=== PATIENT | male | born 2000 | race Caucasian/White ===

== ENCOUNTER 2021-04-19 10:45 | Emergency (ER) | payer SELFPAY ==
[2021-04-19] MEDS ORDERED: HYDROCODONE/APAP 10/325 TAB ONE (11:31)
--- NOTE | 2021-04-19 11:36 | RAD REPORT ---
EXAM DESCRIPTION: RAD - Ankle Right 3 View - 04/19/2021 11:26 am CLINICAL HISTORY: ankle pain COMPARISON: Extremity Venous Uni Ltd dated 04/19/2021 FINDINGS: No acute fracture. No malalignment. Mild sclerosis at the tibial plafond likely related to underlying degenerative changes. Nonspecific soft tissue swelling around the ankle. Possible ankle e ffusion. IMPRESSION: No acute osseous abnormality involving the right ankle.
--- NOTE | 2021-04-19 11:42 | RAD REPORT ---
EXAM DESCRIPTION: US - Extremity Venous Uni Ltd - 04/19/2021 11:33 am COMPARISON: None. TECHNIQUE: Real-time sonographic evaluation of the right lower extremity deep venous system was perf ormed. FINDINGS: Normal compressibility, flow augmentation, phasic flow and spontaneous flow is identified in the right lower extremity deep venous system. No intraluminal filling defects seen. IMPRESSION: No DVT in the right lower extremity.
--- NOTE | 2021-04-19 12:26 | EDPHYS ---
Physician Documentation [facility] Name: Sal Gomez Age: 21 yrs Sex: Male : 2000 Arrival Date: 04/19/2021 Time: 10:48 Bed 14 Private MD: ED Physician Mauro Reza HPI: 04/19 12:22 This 21 yrs old Male presents to ER via EMS with complaints of Leg Pain. jmm 12:22 Onset: The symptoms/episode began/occurred today. Modifying factors: The symptoms are jmm alleviated by nothing. the symptoms are aggravated by nothing. Associated signs and symptoms: Pertinent positives: swelling, Pertinent negatives fever. Is a 21-year-old male with a history of lupus, rheumatoid arthritis, CVA, hypertension the presents to the emergency department with complaints of right ankle swelling which the patient states he developed earlier this morning. Patient denies known trauma but states he does have episodes of swelling in his joints secondary to his chronic diseases. Patient states he does not have his prescribed medication.. 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 - Social history:: Smoking status: Patient reports the use of cigarette tobacco products, smokes one-half pack cigarettes per day. ROS: 12:22 Constitutional: Negative for fever, chills, and weight loss, Cardiovascular: Negative jmm for chest pain, palpitations, and edema, Respiratory: Negative for shortness of breath, cough, wheezing, and pleuritic chest pain. 12:22 MS/extremity: Positive for pain. 12:22 All other systems are negative. Exam: 12:22 Constitutional: This is a well developed, well nourished patient who is awake, alert, jmm and in no acute distress. Head/Face: atraumatic. Eyes: EOMI, no conjunctival erythema appreciated ENT: Moist Mucus Membranes Neck: Trachea midline, Supple Chest/axilla: Normal chest wall appearance and motion. Cardiovascular: Regular rate and rhythm. No edema appreciated Respiratory: Normal respirations, no respiratory distress appreciated Abdomen/GI: Non distended, soft Back: Normal ROM Skin: General appearance color normal 12:22 Musculoskeletal/extremity: swelling noted to the right ankle. 12:22 Musculoskeletal/extremity: swelling noted to the right ankle, compartments are soft, full dorsalis pulse, no erythema or induration appreciated. NVI. 12:22 Skin: Appearance: Color: normal in color. 12:22 Neuro: Orientation: is normal, Mentation: is normal, Memory: is normal. 12:22 Psych: Behavior/mood is pleasant, cooperative. Vital Signs: 10:48 Resp 16; Weight 113.4 kg; Pain 6/10; ss 11:55 BP 138 / 95; Pulse 76; Pulse Ox 98% on R/A; ap3 MDM: 10:59 Patient medically screened. leslie 12:22 Data reviewed: vital signs, nurses notes. Counseling: I had a detailed discussion with ayan the patient and/or guardian regarding: the historical points, exam findings, and any diagnostic results supporting the discharge/admit diagnosis, radiology results, the need for outpatient follow up, to return to the emergency department if symptoms worsen or persist or if there are any questions or concerns that arise at home. 04/19 11:08 Order name: Ankle Right 3 View XRAY; Complete Time: 11:37 [facility] 04/19 11:08 Order name: US Extremity Venous Unilateral Ltd; Complete Time: 11:44 [facility] Administered Medications: 11:36 Drug: [place] (HYDROcodone-acetaminophen) 10 mg-325 mg 1 tabs Route: PO; ap3 Disposition: 04/20 09:16 Co-signature as Attending Physician, Mauro Reza MD I agree with the assessment and [facility] plan of care. Disposition Summary: 04/19/21 12:26 Discharge Ordered Location: Home [facility] Condition: Stable [facility] Diagnosis - Other specified arthritis [facility] Followup: [facility] - With: Private Physician - When: 2 - 3 days - Reason: Recheck today's complaints, Continuance of care, Re-evaluation by your physician Discharge Instructions: - Discharge Summary Sheet [facility] - Arthritis [facility] Forms: - Medication Reconciliation Form [facility] - Thank You Letter [facility] - Antibiotic Education [facility] - Prescription Opioid Use [facility] Prescriptions: - Prednisone 20 mg Oral Tablet - take 3 tablets by ORAL route once daily for 5 days; 15 tablet; Refills: 0, m Product Selection Permitted - orphenadrine citrate 100 mg Oral Tablet Sustained Release - take 1 tablet by ORAL route 2 times per day As needed; 20 tablet; Refills: 0, jmm Product Selection Permitted Signatures: Dispatcher [employer] EDMauro Arenas MD MD cha Mickail, Joel, PA PA jmm Smirch, Shelby, RN RN ss Prokisch, Amanda, RN RN ap3 Corrections: (The following items were deleted from the chart) 04/19 10:51 10:50 PMHx: Lupus erythematosus; ss ss
--- NOTE | 2021-04-19 12:26 | ER ---
Nurse's Notes [facility] Name: Sal Gomez Age: 21 yrs Sex: Male : 2000 Arrival Date: 04/19/2021 Time: 10:48 Bed 14 Private MD: Diagnosis: Other specified arthritis Presentation: 04/19 10:48 Chief complaint: Patient states: RLE pain that began yesterday. Pt reports he moved here recently and is not established with a new physician yet and has been out of most of his home medications x 2 months. Coronavirus screen: Client denies travel out of the [place] in the last 14 days. Ebola Screen: Patient denies exposure to infectious person. Patient denies travel to an Ebola-affected area in the 21 days before illness onset. Initial Sepsis Screen: Does the patient meet any 2 criteria? No. Patient's initial sepsis screen is negative. Does the patient have a suspected source of infection? No. Patient's initial sepsis screen is negative. Risk Assessment: Do you want to hurt yourself or someone else? Patient reports no desire to harm self or others. Onset of symptoms was April 18, 2021. 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 - Social history:: Smoking status: Patient reports the use of cigarette tobacco products, smokes one-half pack cigarettes per day. Screenin:38 Nutritional screening: No deficits noted. Tuberculosis screening: No symptoms or risk ap3 factors identified. Fall Risk None identified. 11:38 Abuse screen: Denies threats or abuse. ap3 Assessment: 11:36 General: Appears in no apparent distress. uncomfortable, Behavior is calm, cooperative, ap3 appropriate for age. General: Smells of urine. Pain: Complains of pain in right leg. Neuro: Level of Consciousness is awake, alert, obeys commands, Oriented to person, place, time, situation, Gait is wheelchair bound. Cardiovascular: Patient's skin is warm and dry. Respiratory: Airway is patent Respiratory effort is even, unlabored, Respiratory pattern is regular, symmetrical. Musculoskeletal: Reports numbness in left leg the numbness in the left leg is baseline for him. Vital Signs: 10:48 Resp 16; Weight 113.4 kg; Pain 6/10; ss 11:55 BP 138 / 95; Pulse 76; Pulse Ox 98% on R/A; ap3 ED Course: 10:48 Patient arrived in ED. ss 10:49 Ladi Dixon, RN is Primary Nurse. ap3 10:50 Triage completed. ss 10:50 Arm band placed on right wrist. ss 10:52 Franki Shane PA is PHCP. [facility] 10:52 Mauro Reza MD is Attending Physician. jmm 11:26 Ankle Right 3 View XRAY In Process Unspecified. EDMS 11:33 US Extremity Venous Unilateral Ltd In Process Unspecified. EDMS 11:38 Patient has correct armband on for positive identification. Bed in low position. Call ap3 light in reach. Side rails up X2. Pulse ox on. NIBP on. Door closed. Noise minimized. Warm blanket given. 12:37 No provider procedures requiring assistance completed. Patient did not have IV access jh5 during this emergency room visit. Administered Medications: 11:36 Drug: [place] (HYDROcodone-acetaminophen) 10 mg-325 mg 1 tabs Route: PO; ap3 Outcome: 12:26 Discharge ordered by . [facility] 12:37 Discharged to home [facility] 12:37 Condition: good 12:37 Discharge instructions given to patient. 12:47 Patient left the ED. 5 Signatures: Dispatcher [employer] EDMS Franki Shane PA PA jmm Smirch, Shelby, RN RN Ladi Dixon, RN RN ap3 Khushi Holman RN RN 5 Corrections: (The following items were deleted from the chart) 10:51 10:50 PMHx: Lupus erythematosus; ss
[2021-04-19 12:54] VITALS: BP 138/95; O2SAT 98
== END 2021-04-19 12:47 | disposition home or self-care (01) ==
LOC: ER 10:45
DX: M13.88 Other specified arthritis, other site (principal); I10 Essential (primary) hypertension; F17.210 Nicotine dependence, cigarettes, uncomplicated; Z88.8 Allergy status to other drugs, medicaments and biological substances
CPT/HCPCS: 93971; 99284

== ENCOUNTER 2021-05-02 20:35 | Emergency (ER) | payer OTHER, SELFPAY ==
[2021-05-02 21:52] LABS: Barbiturates NEGATIVE (NEGATIVE); Benzodiazepines NEGATIVE (NEGATIVE); Cocaine NEGATIVE (NEGATIVE); METHAMPHETAM NEGATIVE (NEGATIVE); Methadone NEGATIVE (NEGATIVE); Opiates NEGATIVE (NEGATIVE); Phencyclidine NEGATIVE (NEGATIVE); THC Cannibis NEGATIVE (NEGATIVE)
[2021-05-02 22:58] LABS: ALT/SGPT 17 U/L (12-78); AST/SGOT 17 U/L (15-37); Alkaline Phosphatase 75 U/L (45-117); BUN Blood Urea Nitrogen 7 mg/dL (7-18); Bicarbonate 22 mmol/L (21-32); Bilirubin Direct 0.1 mg/dL (0-0.2); Bilirubin Total 0.4 mg/dL (0.2-1.0); Glucose Level 81 mg/dL (74-106); Potassium 3.8 mmol/L (3.5-5.1); Protein, Total 7.9 g/dL (6.4-8.2); Sodium Level 138 mmol/L (136-145)
[2021-05-02 23:42] LABS: Basophils % 0.9 % (0-1.3); Hematocrit 41.9 % (39.6-49.0); Lymphocytes % 13.7 % (15.3-44.8); MPV 8.1 fL (7.6-11.3); RBC Red Blood Cell Count 5.58 M/uL (4.33-5.43)
[2021-05-03 00:11] LABS: Protime INR 1.25
--- NOTE | 2021-05-03 01:39 | EDPHYS ---
Physician Documentation [facility] Name: Sal Gomez Age: 21 yrs Sex: Male : 2000 Arrival Date: 05/02/2021 Time: 20:37 Bed 14 Private MD: SOHEILA Physician Mauro Reza HPI: 05/03 01:32 This 21 yrs old Male presents to ER via EMS with complaints of Suicidal leslie Ideation. 01:32 The patient presents to the emergency department with depression. Onset: The leslie symptoms/episode began/occurred 2 week(s) ago. Past psychiatric history: Prior diagnosis: depression, Psychiatric medications include: none. Associated signs and symptoms: The patient has no apparent associated signs or symptoms. Severity of symptoms: At their worst the symptoms were mild moderate in the emergency department the symptoms have improved mildly. The patient has not experienced similar symptoms in the past. 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 - Social history:: Smoking status: Patient reports the use of cigarette tobacco products, smokes one-half pack cigarettes per day. - Family history:: not pertinent. ROS: 01:32 Constitutional: Negative for fever, chills, and weight loss, Eyes: Negative for injury, leslie pain, redness, and discharge, ENT: Negative for injury, pain, and discharge, Neck: Negative for injury, pain, and swelling, Cardiovascular: Negative for chest pain, palpitations, and edema, Respiratory: Negative for shortness of breath, cough, wheezing, and pleuritic chest pain, Abdomen/GI: Negative for abdominal pain, nausea, vomiting, diarrhea, and constipation, Back: Negative for injury and pain, : Negative for injury, bleeding, discharge, and swelling, MS/Extremity: Negative for injury and deformity, Skin: Negative for injury, rash, and discoloration, Neuro: Negative for headache, weakness, numbness, tingling, and seizure, Allergy/Immunology: Negative for hives, rash, and allergies, Endocrine: Negative for neck swelling, polydipsia, polyuria, polyphagia, and marked weight changes, Hematologic/Lymphatic: Negative for swollen nodes, abnormal bleeding, and unusual bruising. 01:32 Psych: Positive for depression, suicidal ideation. Exam: 01:32 Constitutional: This is a well developed, well nourished patient who is awake, alert, leslie and in no acute distress. Head/Face: Normocephalic, atraumatic. Eyes: Pupils equal round and reactive to light, extra-ocular motions intact. Lids and lashes normal. Conjunctiva and sclera are non-icteric and not injected. Cornea within normal limits. Periorbital areas with no swelling, redness, or edema. ENT: Nares patent. No nasal discharge, no septal abnormalities noted. Tympanic membranes are normal and external auditory canals are clear. Oropharynx with no redness, swelling, or masses, exudates, or evidence of obstruction, uvula midline. Mucous membranes moist. Neck: Trachea midline, no thyromegaly or masses palpated, and no cervical lymphadenopathy. Supple, full range of motion without nuchal rigidity, or vertebral point tenderness. No Meningismus. Chest/axilla: Normal chest wall appearance and motion. Nontender with no deformity. No lesions are appreciated. Cardiovascular: Regular rate and rhythm with a normal S1 and S2. No gallops, murmurs, or rubs. Normal PMI, no JVD. No pulse deficits. Respiratory: Lungs have equal breath sounds bilaterally, clear to auscultation and percussion. No rales, rhonchi or wheezes noted. No increased work of breathing, no retractions or nasal flaring. Abdomen/GI: Soft, non-tender, with normal bowel sounds. No distension or tympany. No guarding or rebound. No evidence of tenderness throughout. Back: No spinal tenderness. No costovertebral tenderness. Full range of motion. Male : Normal genitalia with no discharge or lesions. Skin: Warm, dry with normal turgor. Normal color with no rashes, no lesions, and no evidence of cellulitis. Neuro: Awake and alert, GCS 15, oriented to person, place, time, and situation. Cranial nerves II-XII grossly intact. Motor strength 5/5 in all extremities. Sensory grossly intact. Cerebellar exam normal. Normal gait. 01:32 Musculoskeletal/extremity: ROM: limited active range of motion due to pain, limited passive range of motion due to pain, in the right leg and left leg, Circulation is intact in all extremities. Sensation intact. Compartment Syndrome exam of affected extremity: is normal. Weight bearing: can bear weight with assistance only, wheelchair. 02:12 ECG was reviewed by the Attending Physician. leslie Vital Signs: 05/02 20:40 BP 147 / 99; Pulse 118; Resp 16 S; Temp 98.8(O); Pulse Ox 97% on R/A; Weight 104.33 kg bb (R); Height 5 ft. 8 in. (172.72 cm) (R); Pain 0/10; 21:41 BP 146 / 104; Pulse 117; Resp 16; Temp 98.8; Pulse Ox 95% 0 lpm ; sv1 05/03 05:24 BP 133 / 78; Pulse 100; Resp 17; Temp 97.7; Pulse Ox 96% 0 lpm ; sv1 18:27 BP 134 / 99; Pulse 114; Resp 19; Temp 98.2(O); Pulse Ox 100% on R/A; tw2 23:00 BP 128 / 82; Pulse 92; Resp 18; Temp 98.1; Pulse Ox 98% on R/A; mr2 05/04 02:20 BP 131 / 94; Pulse 97; Resp 18; Temp 98.3; Pulse Ox 98% on R/A; mr2 07:00 BP 151 / 99; Pulse 87; Resp 14 S; Temp 97.7(infrared); Pulse Ox 98% ; mr2 05/02 20:40 Body Mass Index 34.97 (104.33 kg, 172.72 cm) bb MDM: 05/02 20:45 Patient medically screened. [facility] 05/03 02:16 Differential diagnosis: drug withdrawal. acute psychotic break, depression. Data leslie reviewed: vital signs, nurses notes, lab test result(s), EKG. Data interpreted: cardiac monitor: rate is 117 beats/min, rhythm is regular, Pulse oximetry: on room air is 95 %. Test interpretation: by ED physician or midlevel provider: ECG. Counseling: I had a detailed discussion with the patient and/or guardian regarding: the historical points, exam findings, and any diagnostic results supporting the discharge/admit diagnosis, lab results, the need to transfer to another facility, for higher level of care, [facility] does not immediately have the required specialist. 08:52 ED course: Pt awaiting transfer to psychiatric facility for suicidal ideations. Still rn endorses suicidal ideations with plan. [facility] has evaluated patient and recommend inpatient psychiatric admission.. 05/02 20:43 Order name: Acetaminophen; Complete Time: : [facility] 05/02 20:43 Order name: Basic Metabolic Panel; Complete Time: : [facility] 05/02 20:43 Order name: CBC with Diff; Complete Time: : [facility] 05/02 20:43 Order name: ETOH Level; Complete Time: : [facility] 05/02 20:43 Order name: Hepatic Function; Complete Time: : [facility] 05/02 20:43 Order name: PT-INR; Complete Time: : [facility] 05/02 20:43 Order name: Ptt, Activated; Complete Time: : [facility] 05/02 20:43 Order name: Salicylate; Complete Time: : [facility] 05/02 20:43 Order name: Urine Drug Screen; Complete Time: : [facility] 05/02 20:43 Order name: SARS-COV-2 RT PCR (Document "Date of Onset" if Symptomatic); Complete Time: [facility] 05/02 20:43 Order name: EKG; Complete Time: 20:44 [facility] 05/02 20:43 Order name: EKG - Nurse/Tech; Complete Time: 21:44 [facility] 05/02 20:43 Order name: Labs collected and sent; Complete Time: 21:45 [facility] 05/02 20:43 Order name: Suicide Precautions; Complete Time: 21:45 [facility] 05/02 20:43 Order name: Suicide Screening ([place]); Complete Time: 21:45 [facility] 05/02 20:43 Order name: Urine Dipstick-Ancillary (obtain specimen); Complete Time: 21:45 [facility] 05/02 22:58 Order name: Labs - recollect needed: blue and lavender; Complete Time: 23:19 mw2 05/03 07:47 Order name: Diet Finger Food; Complete Time: 07:48 em1 05/03 10:40 Order name: Diet Finger Food; Complete Time: 10:40 tw2 05/04 07:44 Order name: Diet Finger Food; Complete Time: 07:44 em1 EC:12 Rate is 107 beats/min. Rhythm is regular. QRS [place] is Normal. [place] interval is normal. [facility] QRS interval is normal. QT interval is normal. No Q waves. T waves are Normal. No ST changes noted. Clinical impression: Sinus tachycardia and No evidence of ischemia. Interpreted by me. Reviewed by me. Administered Medications: 05/02 21:20 CANCELLED (Physician Discretion): NS 0.9% 1000 ml IV at 1 bolus Per protocol; 1000 mL bb bolus 05/03 10:12 Drug: Nicotine Patch 21 mg/24 hr 1 patches {Note: left upper shoulder.} Route: tw2 Transdermal; Site: affected area; 05/04 07:32 Follow up: Response: No adverse reaction mr2 05/03 10:25 Drug: Zofran (Ondansetron) 4 mg Route: PO; tw2 10:50 Follow up: Response: No adverse reaction; Nausea is decreased tw2 18:45 Drug: Ondansetron 4 mg Route: PO; tw2 19:13 Follow up: Response: No adverse reaction; Nausea is decreased tw2 05/04 07:32 Follow up: Response: No adverse reaction; Nausea is decreased mr2 05/03 18:52 CANCELLED (Duplicate Order): Zofran (Ondansetron) 4 mg IVP once; over 2 minutes tw2 22:50 Drug: Tylenol 650 mg Route: PO; mr2 05/04 07:31 Follow up: Response: No adverse reaction; Pain is decreased mr2 Disposition Summary: 05/03/21 01:39 Transfer Ordered Transfer Location: Psych Facility leslie Reason: Higher level of care leslie Condition: Stable leslie Problem: new leslie Symptoms: have improved leslie Accepting Physician: [facility]/Dr. Kapadia(05/04/21 12:08) [email or web address] Diagnosis - Major depressive disorder, recurrent, mild leslie - Suicidal ideations leslie Forms: - Medication Reconciliation Form leslie - SBAR form leslie Signatures: Dispatcher [employer] EDMauro Arenas MD MD cha Rittger, Kevin, MD MD kdr Ballard, Brenda RN RN bb Angel Mcdonald MD MD rn Wise, Tara, RN RN tw2 Corine Aguilar [facility] Yvan López RN RN mr2 Marie Wallernifer [email or web address] Corrections: (The following items were deleted from the chart) 05/02 21:20 20:43 NS 0.9% 1000 ml IV at 1 bolus Per protocol; 1000 mL bolus ordered. leslie 05/03 13:51 12:43 PMHx: Hypertensive disorder; [facility] 18:33 05/02 21:02 Allergies: Benadryl; [facility] 05/03 18:52 18:52 Zofran (Ondansetron) 4 mg IVP once; over 2 minutes ordered. [place] [id number] 05/04 10:26 05/03 01:39 psych md nelson [facility] [address] 05/04 12:08 10:26 [facility]/Dr. Kapadia [facility] [address] [email or web address]
--- NOTE | 2021-05-03 01:39 | ER ---
Nurse's Notes [facility] Name: Sal Gomez Age: 21 yrs Sex: Male : 2000 Arrival Date: 05/02/2021 Time: 20:37 Bed 14 Private MD: Diagnosis: Major depressive disorder, recurrent, mild;Suicidal ideations Presentation: 05/02 20:40 Chief complaint: EMS states: they were toned out for report of pt with suicidal bb ideations with a plan which was to use the neighbor's gun and shoot himself. Coronavirus screen: At this time, the client does not indicate any symptoms associated with coronavirus-19. Ebola Screen: No symptoms or risks identified at this time. Initial Sepsis Screen: Does the patient meet any 2 criteria? No. Patient's initial sepsis screen is negative. Does the patient have a suspected source of infection? No. Patient's initial sepsis screen is negative. Risk Assessment: Do you want to hurt yourself or someone else? Patient reports desire/thoughts of hurting themselves or someone else. Provider notified. Onset of symptoms is unknown. 20:40 Method Of Arrival: EMS: [facility] bb 20:40 Acuity: DANICA 2 bb 21:06 Note pt states he recently came here in January and [place] airport therefore has not been on his medications since then. Triage Assessment: 21:42 General: Appears distressed, obese, Behavior is cooperative, anxious. sv1 21:45 Pain: Denies pain. 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 - Social history:: Smoking status: Patient reports the use of cigarette tobacco products, smokes one-half pack cigarettes per day. - Family history:: not pertinent. Screenin/14 21:43 Abuse screen: none. Nutritional screening: No deficits noted. Tuberculosis screening: sv1 No symptoms or risk factors identified. Fall Risk None identified. Assessment: 05/03 02:17 Reassessment: All labs and assessment are completed. The patient has been asleep . No sv1 acute distress noted. Will continue to monitoer.. 05:25 Reassessment: The patient is being interviewed by Telepsych.. sv1 07:00 Reassessment: received report from ROSA Yeh. pt is awake, alert. NAD. lying in bed tw2 with knees bent. 07:01 Reassessment: bedside sitter remains with pt throughout shift. see pts paper chart for tw2 documentation. 07:30 General: Appears in no apparent distress. uncomfortable, obese, unkempt, Behavior is tw2 calm, cooperative, appropriate for age. Pain: Complains of pain in left hip and leg. Neuro: Level of Consciousness is awake, alert, obeys commands, Oriented to person, place, situation. Respiratory: Airway is patent Respiratory effort is even, unlabored, Respiratory pattern is regular, symmetrical. GI: No signs and/or symptoms were reported involving the gastrointestinal system. : Urine is dark in color sitting in bedside urinal upon entry into exam room. Reports "i sometimes dont have control over my bladder like at night when i am sleeping because of my left sided paralysis. during the day when i am awake i just use the bathroom every hour. but then i try to drink less and less so that i dont urinate at night because my dad gets mad," pt educated as to the need to hydrate often and not restrict his fluid intake. pt encouraged to use additional pads/briefs at night to help with any leakage or incontinence episodes. pt agreeable. Musculoskeletal: Reports limited mobility in LEFT side. pt states "i have not been walking for 4 years after my LEFT hip surgery. the doctors recommended no walking because my ankles and knees are bone on bone. i can stand and pivot myself and use my wheelchair daily to get around.". 07:35 Reassessment: pt states i was in a coma in Jun 2020. i am not sure if it was a tw2 medically induced coma or what but they say because of my lupus flare up i had a stroke. after the coma i went to a Rehab hospital then to a prison on September 06. but they told me my medicaid ran out and stopped paying so they discharged me with 3 months worth of medication. i was in [place] and my dad said he would take care of me. the airlines said that was too many medications to travel with and confiscated all my medicines. so i got to my dads house on February 08 and had to bail him out of senior care that day. and i havent been on any medications since. 08:30 Reassessment: Patient appears in no apparent distress at this time. Patient and/or tw2 family updated on plan of care and expected duration. Pain level reassessed. pt states "also i have a pressure wound on my sacrum that did have a drain in it at one time after i was in the prison. sometimes it drains but i am hoping it is fine now". 08:53 Reassessment: pt ate a breakfast sandwich, half of a banana and had approx 200 ml tw2 gatoraid at this time. 09:00 Reassessment: pt given extra bottle of water, gatoraid and a cup of ice at this time. tw2 pt encouraged to hydrate as often as he likes. 10:15 Reassessment: pt c/o nauseousness. states "this is the first time i ate in 3 days so i tw2 think it was just too much", provider notified and medicated as ordered. 10:45 Reassessment: pt states "nauseousness is better now". pt requesting to sit ini personal tw2 w/c at this time for comfort. pt able to sit and pivot into w/c with standby assist only. pt watching tv in w/c at this time. Patient states feeling better. Patient states symptoms have improved. 12:00 Reassessment: Patient appears in no apparent distress at this time. pt given warm soapy tw2 wash clothes to clean himself. pt not able to wring the wash rags out. assisted pt by wringing the washrags out and handing cleaning cloth to pt. i used a cleaning cap to wash pts hair as pt unable to refining engineer hands to wash hair. pt needed stand by assist and help pulling new brief up. ROSA Bledsoe served as before and after school daycare worker. pt given new gown and nonslip socks pts bed linens changed. pt requesting to sit in personal w/c at this. pt able to move from bed to w/c. pillow placed in w/c for off loading and comfort measures. 13:30 Reassessment: pts brother at bedside. Kehinde Rangel ph# [phone]. pt states he is tw2 the next of kin. 15:42 Reassessment: pt requested to get back in exam bed after sitting in person w/c. i was tw2 at bedside for standby assist. pt able to stand and pivot to get into exam bed at this time. pt able to push himself up into more comfortable position using bed rails \\T\\ HOB lowered. pt nad. states "i had a good visit with my brother and he said i could go live with him once i get out of a facility". 18:06 Reassessment: pt given supper finger tray at this time. resting in bed at this time. tw2 18:40 Reassessment: pt states "i am feeling nauseous again after i tried to eat something. i tw2 will tell you why its because my dad put me on a diet and told me i shouldn't eat. so before i came here i havent had anything to eat". provider notified medicated as ordered. 18:57 Reassessment: pt states "i need to have a BM". pt able to transfer from bed to w/c and tw2 wheels himself to the restroom at this time near the nurses station. 19:10 Reassessment: pt reports having a BM at this time. pt requesting to remain in w/c at tw2 this time. 19:11 Reassessment: pt has been pleasant, calm, and cooperative throughout shift today. tw2 05/04 07:29 Reassessment: Patient appears in no apparent distress at this time. No changes from mr2 previously documented assessment. Patient denies pain at this time. Patient is awake in bed, alert, oriented, and in no obvious signs of distress. Patient asked if he needed anything at which time he denied, patient informed to use the call button if he has any wants or needs to be addressed. . 09:24 Reassessment: C-SSRS- Patient admits to having thought of harming himsel, he does not jg9 report how he might do it and he has not worked out any details or plans to do it. Patient still reports that he is suicidal this morning, "a little bit" he reports when asked if he wanted to harm himself. . 12:12 Reassessment: Patient and/or family updated on plan of care and expected duration. Pain jg9 level reassessed. Patient resting in bed in NAD alert and oriented, denies any need at this time, patient still did not eat breakfast, when asked he stated "I'm not hungry", patient reports pain all over which is chronic secondary to RA otherwise patient has no complaints at this time. Patient awaiting transfer to [facility], report called, patient stable. Psych: 05/02 21:03 [place] Suicide Severity Screening: In the past month, have you wished you were bb or wished you could go to sleep and not wake up? Patient responds "yes." Based off the client's responses additional C-SSRS screening is required. "In the past month, have you actually had any thoughts of killing yourself?" "In your lifetime, have you ever done anything, started to do anything, or prepared to do anything to end your life?" Patient responds "yes." Patient reports suicidal intent within 3 past months. pt states he has long history of suicidal ideations states he tried to cut his wrists when he was [age] and tried to shoot himself another time and was interrupted by hjs father. Subjective: Patient's mood is sad, hopeless, Having thoughts of suicide. Plan for suicide is use the neighbor's gun to shoot himself. Objective: Patient is cooperative, Speech is soft. Interventions: Removed personal items and placed in bag. Patient placed in hospital gown. Searched person for dangerous items. Urine collected and sent for urine drug test. Belonging list filled out. Safety Checks: Personal items have been removed. Door is open. 21:44 Pt denies substance abuse. Commitment: Patient will be an involuntary commitment. sv1 05/03 07:00 Commitment: Patient will be a voluntary commitment. per conversation with pt he is tw2 agreeable to get help. pt states "i called my brother who works for [employer] and told him I planned to hurt myself. Vital Signs: 05/02 20:40 BP 147 / 99; Pulse 118; Resp 16 S; Temp 98.8(O); Pulse Ox 97% on R/A; Weight 104.33 kg bb (R); Height 5 ft. 8 in. (172.72 cm) (R); Pain 0/10; 21:41 BP 146 / 104; Pulse 117; Resp 16; Temp 98.8; Pulse Ox 95% 0 lpm ; sv1 05/03 05:24 BP 133 / 78; Pulse 100; Resp 17; Temp 97.7; Pulse Ox 96% 0 lpm ; sv1 18:27 BP 134 / 99; Pulse 114; Resp 19; Temp 98.2(O); Pulse Ox 100% on R/A; tw2 23:00 BP 128 / 82; Pulse 92; Resp 18; Temp 98.1; Pulse Ox 98% on R/A; mr2 05/04 02:20 BP 131 / 94; Pulse 97; Resp 18; Temp 98.3; Pulse Ox 98% on R/A; mr2 07:00 BP 151 / 99; Pulse 87; Resp 14 S; Temp 97.7(infrared); Pulse Ox 98% ; mr2 05/02 20:40 Body Mass Index 34.97 (104.33 kg, 172.72 cm) bb ED Course: 05/02 20:37 Patient arrived in ED. wm 20:43 Mauro Reza MD is Attending Physician. leslie 21:01 Triage completed. bb 21:02 Arm band placed on Patient placed in an exam room, on a stretcher, suicide precautions bb implemented. 21:07 Patient has correct armband on for positive identification. Placed in gown. Bed in low bb position. Call light in reach. suicidal precautions implemented. 21:41 Rao Angeles, RN is Primary Nurse. sv1 21:41 EKG completed in triage. Results shown to MD. sv1 21:43 No provider procedures requiring assistance completed. sv1 21:45 SARS-COV-2 RT PCR (Document "Date of Onset" if Symptomatic) Sent. sv1 21:45 Acetaminophen Sent. sv1 21:46 Basic Metabolic Panel Sent. sv1 21:46 CBC with Diff Sent. sv1 21:46 ETOH Level Sent. sv1 21:46 Hepatic Function Sent. sv1 21:46 PT-INR Sent. sv1 21:46 Ptt, Activated Sent. sv1 21:46 Salicylate Sent. sv1 21:46 Urine Drug Screen Sent. sv1 12 01:41 contacted [facility] line spoke to Dena to have a screener evaluate the patient. mw2 03:30 faxed patient information to all available psych facilities. mw2 05:18 patient on Facetime call with Gabe from [facility]. mw2 07:15 Primary Nurse role handed off by Rao Angeles RN tw2 07:15 Odette Crespo, RN is Primary Nurse. tw2 08:34 myself and ROSA Escobar served as rope making machine operator for Dr. Mcdonald to observe pts sacrum wound. pt tw2 has blanchable redness noted to right gluteal fold. no drainage noted. pt placed on pillow to off load sacral area at this time. 18:20 Spoke with Erin from [facility] bed coordinator, and she informed us that em1 while there are no beds available tonight, as soon as there is a discharge tomorrow morning, she will assign this pt a bed. 19:00 Report given to ROSA Santoro. tw2 19:18 Primary Nurse role handed off by Odette Crespo RN tw2 19:25 Yvan López, RN is Primary Nurse. mr2 / 07:30 [facility] called to inform us that this pt is still on the wait list for [facility] em1 and as soon as they have a discharge this morning he will be assigned to that bed. 09:08 Appears to be sleeping. jg9 09:08 Diet: Patient did not eat breakfast tray ordered, remains at the bedside. jg9 10:54 Report given to ROSA Fagan at Health system. jg9 12:08 Patient did not have IV access during this emergency room visit. jg9 Administered Medications: 05/02 21:20 CANCELLED (Physician Discretion): NS 0.9% 1000 ml IV at 1 bolus Per protocol; 1000 mL bb bolus 05/03 10:12 Drug: Nicotine Patch 21 mg/24 hr 1 patches {Note: left upper shoulder.} Route: tw2 Transdermal; Site: affected area; 05/04 07:32 Follow up: Response: No adverse reaction mr2 05/03 10:25 Drug: Zofran (Ondansetron) 4 mg Route: PO; tw2 10:50 Follow up: Response: No adverse reaction; Nausea is decreased tw2 18:45 Drug: Ondansetron 4 mg Route: PO; tw2 19:13 Follow up: Response: No adverse reaction; Nausea is decreased tw2 05/04 07:32 Follow up: Response: No adverse reaction; Nausea is decreased mr2 05/03 18:52 CANCELLED (Duplicate Order): Zofran (Ondansetron) 4 mg IVP once; over 2 minutes tw2 22:50 Drug: Tylenol 650 mg Route: PO; mr2 05/04 07:31 Follow up: Response: No adverse reaction; Pain is decreased mr2 Intake: 05/03 08:53 PO: 200ml (Water); Total: 200ml. tw2 Output: 08:53 Urine: 275ml (Voided); Total: 275ml. tw2 Outcome: 01:39 ER care complete, transfer ordered by MD. nelson 05/04 12:07 Transferred by ground EMS Note: [facility] jg9 Condition: stable 12:08 Patient left the ED. jg9 Signatures: Mauro Reza MD MD cha Ballard, Brenda, RN RN Manish Ford em1 Odette Crespo RN RN tw2 Corine Aguilar mw2 Kinsey Beltran Yvan López RN RN mr2 WallerMarieRandi jg9 Rao Angeles, RN RN sv1 Corrections: (The following items were deleted from the chart) 12/15 12:26 08:30 Reassessment: pt states "also i have a pressure wound on my sacrum that did have tw2 a drain in it at one time after i was in the prison. sometimes it drains but i am hoping it is fine now" tw2 13:51 12:43 PMHx: Hypertensive disorder; tw2 tw2 18:33 12 21:02 Allergies: Benadryl; bb tw2 05/03 19:18 07:35 Reassessment: pt states tw2 tw2 19:30 07:35 Reassessment: pt states i was in a coma in Jun 2020. i am not sure if it was a tw2 medically induced coma or what but they say because of my lupus flare up i had a stroke. after the coma i went to a Rehab hospital then to a prison on September 06. but they told me my medicaid r tw2
--- NOTE | 2021-05-03 07:49 | EKG ---
Test Date: 2021-05-02 Test Time: 21:17:08 Coil Cleaner: MODESTO MEASUREMENT RESULTS: Intervals: Rate: 107 UT: 188 QRSD: 86 QT: 346 QTc: 461 [place]: P: 37 UT: 188 QRS: 61 T: 26 INTERPRETIVE STATEMENTS: Sinus tachycardia Otherwise normal ECG No previous ECG available for comparison Electronically Signed On 05-03-21 07:48:01 BLEACH MAKER by Mitchell Villeda
[2021-05-03] MEDS ORDERED: NICOTINE 21 MG/PAT TD ONE (10:10)
[2021-05-03] MEDS ORDERED: ONDANSETRON 4 MG (ODT) TAB ONE ×2 (10:20→18:43)
[2021-05-03] MEDS ORDERED: ACETAMINOPHEN 325 MG TABLET ONE (22:40)
[2021-05-04 12:30] VITALS: O2SAT 98
[2021-05-04 12:32] VITALS: BP 151/99; TEMP 97.7
== END 2021-05-04 12:08 ==
LOC: ER 20:35
DX: R45.851 Suicidal ideations (principal); F33.9 Major depressive disorder, recurrent, unspecified; I10 Essential (primary) hypertension; M32.9 Systemic lupus erythematosus, unspecified; Z86.73 Personal history of transient ischemic attack (TIA), and cerebral infarction without residual deficits; Z20.822 Contact with and (suspected) exposure to COVID-19
CPT/HCPCS: 93005; 85025; 80048; 36415; 80320; 80329 ×2; 85610; 80076; 85730; 80307; 99285; U0003

== ENCOUNTER 2021-08-10 20:15 | Emergency (ER) | payer OTHER ==
--- OUTSIDE RECORDS SUMMARY | 2021-08-10 20:18 | XMS REPORT | Continuity of Care Document ---
:2000 Author Organization [facility] t Address [address] [place] [address] Care Team Providers Name Role Phone Pcp, Does Not Have A Primary Care Physician Meir Metz MD Attending Clinician Problems This patient has no known problems. Allergies, Adverse Reactions, Alerts This patient has no known allergies or adverse reactions. Social History Social Habit Start Date Stop Date Quantity Comments Source Sex Assigned At [birth year] [facility] 00:00:00 00:00:00 Medical Branch Smoking Status Start Date Stop Date Source Unknown if ever smoked [facility] Medications This patient has no known medications. Procedures This patient has no known procedures. Encounters Start End Encounter Admission Attending Care Care Encounter Source Date/Time Date/Time Type Type Clinicians Facility Department ID 2021-05-04 2021-05-04 [facility] [id number] [facility] 13:37:00 23:59:00 Encounter Brandan CASTROS [id number] ity MEDICAL [id number] [facility] [id number] [place] [address] Branch Results This patient has no known results.
[2021-08-10] MEDS ORDERED: NA CHLORIDE 0.9% 1,000 ML ONE (20:42)
[2021-08-10 21:00] LABS: Absolute Lymphocytes (CBC) 0.7 K/uL (0.7-4.9); Hematocrit 36.7 % (39.6-49.0); Lymphocytes % 21.9 % (15.3-44.8); MPV 8.1 fL (7.6-11.3); RBC Red Blood Cell Count 5.21 M/uL (4.33-5.43)
--- NOTE | 2021-08-10 21:31 | RAD REPORT ---
EXAM DESCRIPTION: CT - Head Brain Wo Cont - 08/10/2021 9:24 pm CLINICAL HISTORY: HEADACHE Headache, drowsiness COMPARISON: No comparisons TECHNIQUE: All CT scans are performed using dose optimization technique as appropriate and may inclu de automated exposure control or mA/KV adjustment according to patient size. FINDINGS: No intracranial hemorrhage, hydrocephalus or extra-axial fluid collection.No areas of brai n edema or evidence of midline shift. The paranasal sinuses and mastoids are clear. The calvarium is intact. IMPRESSION: No acute intracranial abnormality.
[2021-08-10 21:45] LABS: ALT/SGPT 21 U/L (12-78); AST/SGOT 43 U/L (15-37); Albumin 2.7 g/dL (3.4-5.0); Alkaline Phosphatase 69 U/L (45-117); BUN Blood Urea Nitrogen 5 mg/dL (7-18); Bicarbonate 25 mmol/L (21-32); Bilirubin Total 0.5 mg/dL (0.2-1.0); Glucose Level 104 mg/dL (74-106); Lipase 383 U/L (73-393); Protein, Total 7.7 g/dL (6.4-8.2); Sodium Level 134 mmol/L (136-145)
[2021-08-10 21:47] LABS: Potassium 2.8 mmol/L (3.5-5.1)
[2021-08-10] MEDS ORDERED: POTASSIUM 25 MEQ EFFERV TAB ONE (21:55)
[2021-08-10] MEDS ORDERED: KCL 20 MEQ/100 mL IVPB 100 ML IV ONE (21:55)
--- NOTE | 2021-08-10 22:51 | EDPHYS ---
Physician Documentation [facility] Name: Sal Gomez Age: 21 yrs Sex: Male : 2000 Arrival Date: 08/10/2021 Time: 20:16 Bed 25 Private MD: ED Physician Mauro Reza HPI: 08/10 20:39 This 21 yrs old Male presents to ER via EMS with complaints of headache and vomiting jr8 for 4 days. 20:39 The patient presents to the emergency department with nausea, vomiting, 20 times today. jr8 Onset: The symptoms/episode began/occurred 4 day(s) ago. Possible causes: unknown. Associated signs and symptoms:. 21-year-old male presents to the ER complaining of headache and vomiting for 4 days. He states that he has not been able to hold anything down for 4 days. He states that he spoke to his primary doctor, who said that if he developed any neurological symptoms, he should go to the ER. He reports that he woke up from a nap sometime this afternoon, and had slurred speech and confusion. He reports that he had a stroke June 2020.. 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 - Social history:: Smoking status: Patient reports the use of cigarette tobacco products, smokes one pack cigarettes per day. ROS: 20:39 Constitutional: Negative for fever, chills, and weight loss, Cardiovascular: Negative jr8 for chest pain, palpitations, and edema, Respiratory: Negative for shortness of breath, cough, wheezing, and pleuritic chest pain. 20:39 Abdomen/GI: Positive for nausea and vomiting. 20:39 Neuro: Positive for headache, speech changes, confusion. Exam: 20:39 Constitutional: This is a well developed, well nourished patient who is awake, alert, jr8 and in no acute distress. Cardiovascular: Regular rate and rhythm with a normal S1 and S2. No gallops, murmurs, or rubs. Normal PMI, no JVD. No pulse deficits. Respiratory: Lungs have equal breath sounds bilaterally, clear to auscultation and percussion. No rales, rhonchi or wheezes noted. No increased work of breathing, no retractions or nasal flaring. Abdomen/GI: Soft, non-tender, with normal bowel sounds. No distension or tympany. No guarding or rebound. No evidence of tenderness throughout. Skin: Warm, dry with normal turgor. Normal color with no rashes, no lesions, and no evidence of cellulitis. 20:39 Musculoskeletal/extremity: Extremities: ROM: Full ROM in bilateral upper extremities and R lower extremity. The patient is unable to move his L lower extremity secondary to deficits from a previous stroke., Circulation is intact in all extremities. numbness, Decreased sensation in the LLE due to a previous stroke 20:39 Neuro: Orientation: to person, place, time \T\ situation. Mentation: is normal, Memory: is normal, Cerebellar function: normal finger to nose testing, Motor: muscle strength 5/5 in all extremities except the LLE due to a previous stroke, Sensation: decreased sensation in the LLE due to deficits from previous stroke. Vital Signs: 20:24 BP 147 / 71 RA Supine (auto/reg); Pulse 102 MON; Resp 20 S; Temp 99.2(O); Pulse Ox 97% tk1 on R/A; Pain 7/10; 20:26 BP 114 / 71 RA Supine (auto/reg); Pulse 102; Resp 20 S; Temp 99.2(O); Pulse Ox 97% on tk1 R/A; Pain 8/10; 21:00 BP 110 / 66 RA Supine (auto/reg); Pulse 102 MON; Resp 20 S; Pulse Ox 100% on R/A; Pain tk1 8/10; 21:00 BP 152 / 98 RA Supine (auto/reg); Pulse 92 MON; Resp 18 S; Pulse Ox 99% on R/A; tk1 22:00 BP 147 / 98 RA Supine (auto/reg); Pulse 76 MON; Resp 16 S; Temp 97.9(O); Pulse Ox 100% tk1 on R/A; 23:00 BP 120 / 78 RA Supine (man/lg); Pulse 90 MON; Resp 14 S; Temp 98(O); Pulse Ox 98% on tk1 R/A; 08/11 00:00 BP 120 / 78 RA Supine (auto/reg); Pulse 90 MON; Resp 16 S; Pulse Ox 96% on R/A; tk1 NIH Stroke Scale Scores: 08/10 20:39 NIHSS Score: 6 jr8 [place] Coma Score: 20:39 Eye Response: spontaneous(4). Verbal Response: oriented(5). Motor Response: obeys jr8 commands(6). Total: 15. MDM: 20:27 Patient medically screened. jr8 22:49 Data reviewed: vital signs, nurses notes, lab test result(s), and as a result, I will jr8 discharge patient. Data interpreted: Pulse oximetry: on room air is 99 %. Interpretation: normal. Counseling: I had a detailed discussion with the patient and/or guardian regarding: the historical points, exam findings, and any diagnostic results supporting the discharge/admit diagnosis, lab results, the need for outpatient follow up, a family practitioner, to return to the emergency department if symptoms worsen or persist or if there are any questions or concerns that arise at home. Response to treatment: the patient's symptoms have markedly improved after treatment, patient is well hydrated. Special discussion: Based on the patient's Hx, exam, and Dx evaluation, there is no indication for emergent surgery or inpatient Tx. It is understood by the patient/guardian that if the Sx's persist or worsen they need to return immediately for re-evaluation. ED course: Patient with no active vomiting while in the emergency room here. Hemodynamically stable. Replaced potassium. We will send him home on antiemetics and his follow-up with GI and primary care within the next few days. Knows to come back if worsening point time.. 08/10 20:28 Order name: CBC with Diff; Complete Time: 21:12 8 08/10 20:28 Order name: CMP; Complete Time: 21:48 8 08/10 20:28 Order name: Lipase; Complete Time: 21:48 8 08/10 20:39 Order name: CT Head Brain wo Cont; Complete Time: 21:47 8 08/10 20:28 Order name: IV Saline Lock; Complete Time: 20:34 8 08/10 20:28 Order name: Labs collected and sent; Complete Time: 20:34 jr8 Administered Medications: 20:42 Drug: NS 0.9% 1000 ml Route: IV; Rate: 1 bolus; Infused Over: 1 hrs; Site: left tk1 forearm; Delivery: Primary tubing; 22:04 Follow up: Response: No adverse reaction; IV Status: Completed infusion; IV Intake: tk1 1000ml 20:43 Not Given (Given in route to ED. PA updated.): Zofran (Ondansetron) 4 mg IVP once; tk1 over 2 minutes 22:04 Drug: Potassium Chloride 20 mEq Route: IV; Rate: calculated rate; Infused Over: 2 hrs; tk1 Site: left forearm; Delivery: Primary tubing; 08/11 00:10 Follow up: Response: No adverse reaction; IV Status: Completed infusion; IV Intake: tk1 100ml 08/10 22:04 Drug: Potassium Effervescent Tablet 50 mEq Route: PO; tk1 22:52 Follow up: Response: No adverse reaction tk1 Disposition: 08/11 05:39 Co-signature as Attending Physician, Mauro Reza MD I agree with the assessment and leslie plan of care. Disposition Summary: 08/10/21 22:50 Discharge Ordered Location: Home jr8 Problem: new jr8 Symptoms: have improved jr8 Condition: Stable jr8 Diagnosis - Vomiting jr8 - Hypokalemia jr8 Followup: jr8 - With: Private Physician - When: 2 - 3 days - Reason: Recheck today's complaints, Continuance of care, Re-evaluation by your physician Discharge Instructions: - Discharge Summary Sheet jr8 - Hypokalemia jr8 - Vomiting, Adult jr8 Forms: - Medication Reconciliation Form jr8 - Thank You Letter jr8 - Antibiotic Education jr8 - Prescription Opioid Use jr8 Prescriptions: - promethazine 25 mg Oral Tablet - take 1 tablet by ORAL route every 6 hours As needed; 20 tablet; Refills: 0, jr8 Product Selection Permitted NIH Stroke Scale - NIH Stroke Score Date: 08/10/2021 Time: 20:39 Total Score = 6 1a. Level of Consciousness (LOC) - 0(Alert) 1b. Level of Consciousness (LOC) (Month \T\ Age) - 1(One) 1c. LOC Commands (Open \T\ Closes Eyes/Wax Pattern Assembler) - 0(Both) 2. Best Gaze (Lateral Gaze Paresis) - 0(Normal) 3. Visual Field Loss - 0(No visual loss) 4. Facial Palsy - 0(Normal) 5a. Left Arm: Motor (10-second hold) - 0(No drift) 5b. Right Arm: Motor (10-second hold) - 0(No drift) 6a. Left Leg: Motor (5-second hold - always test supine) - 4(No movement) 6b. Right Leg: Motor (5-second hold - always test supine) - 0(No drift) 7. Limb Ataxia (finger/nose \T\ heel/cherry - test with eyes open) - 0(Absent) 8. Sensory Loss (pinprick arms/legs/face) - 1(Mild to moderate loss) 9. Best Language: Aphasia (description/naming/reading) - 0(No aphasia) 10. Dysarthria (speech clarity - read or repeat words) - 0(Normal) 11. Extinction and Inattention (visual/tactile/auditory/spatial/personal) - 0(No abnormality) Initials: jr8 Signatures: Dispatcher [employer] Mauro Hedrick MD MD cha Roszak, Josh, PA PA jr8 Kenyetta Desai tk1
--- NOTE | 2021-08-10 22:51 | ER ---
Nurse's Notes [facility] Name: Sal Gomez Age: 21 yrs Sex: Male : 2000 Arrival Date: 08/10/2021 Time: 20:16 Bed 25 Private MD: Diagnosis: Vomiting;Hypokalemia Presentation: 08/10 20:24 Chief complaint: Patient states: Nausea x 4 days with vomiting 20+ times today. MATTHEWS x4 tk1 days. Coronavirus screen: Client denies travel out of the [place] in the last 14 days. At this time, the client does not indicate any symptoms associated with coronavirus-19. Ebola Screen: Patient negative for fever greater than or equal to 101.5 degrees Fahrenheit, and additional compatible Ebola Virus Disease symptoms Patient denies exposure to infectious person. Initial Sepsis Screen: Does the patient meet any 2 criteria? No. Patient's initial sepsis screen is negative. Does the patient have a suspected source of infection? No. Patient's initial sepsis screen is negative. Risk Assessment: Do you want to hurt yourself or someone else? Patient reports no desire to harm self or others. Onset of symptoms was August 06, 2021. Care prior to arrival: Medication(s) given: zofran 4 mg. 20:24 Method Of Arrival: EMS tk1 20:24 Acuity: DANICA 3 tk1 Triage Assessment: 20:26 General: Appears unkempt, well nourished, Behavior is cooperative, flat. Pain: tk1 Complains of pain in head Pain does not radiate. Pain currently is 8 out of 10 on a pain scale. Quality of pain is described as aching, Pain began 2-3 days ago. Is continuous. EENT: No deficits noted. No signs and/or symptoms were reported regarding the EENT system. Neuro: Level of Consciousness is awake, alert, obeys commands, Oriented to person, place, time, situation, Appropriate for age Continuing Education Specialist are equal bilaterally Paralysis in left leg(s) Gait is uses walker to hop at home for bathroom, otherwise WC bound. Left lower leg paralysis.. Speech is normal, Facial symmetry appears normal, Pupils are PERRLA, Intact. Cardiovascular: Capillary refill < 3 seconds is brisk in bilateral fingers. Respiratory: Airway is patent Respiratory effort is even, unlabored, Respiratory pattern is regular, symmetrical, Breath sounds are clear bilaterally. GI: Abdomen is round non-distended, obese, Bowel sounds present X 4 quads. GI: Reports nausea, vomiting, since 4 days. : No deficits noted. No signs and/or symptoms were reported regarding the genitourinary system. Derm: No deficits noted. No signs and/or symptoms reported regarding the dermatologic system. 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 - Social history:: Smoking status: Patient reports the use of cigarette tobacco products, smokes one pack cigarettes per day. Screenin:32 Abuse screen: Denies threats or abuse. Denies injuries from another. Nutritional tk1 screening: No deficits noted. Tuberculosis screening: No symptoms or risk factors identified. Fall Risk None identified. Assessment: 20:32 Reassessment: See triage assessment. tk1 21:16 Reassessment: To radiology via stretcher for CT. tk1 21:26 Reassessment: Returned from CT. Tolerated well. No new events of vomiting. tk1 21:45 Reassessment: Lab called with critical K- 2.8 mmol/L. CRISTI Adams updated. New orders tk1 received. 22:03 Reassessment: Patient placed on cardiac monitor technician. Sinus Rhythm with rate of 97 bpm. tk1 Medications given per order. 08/11 00:16 Reassessment: Patient's IV KCL completed. Tolerated well over 2 hours. D/C per CRISTI tk1 order. Discharge/Prescription instructions given to patient. Verbalized understanding. 00:57 Reassessment: Patient transported via WC to entrance ramp for D/C with friend. tk1 Vital Signs: 08/10 20:24 BP 147 / 71 RA Supine (auto/reg); Pulse 102 MON; Resp 20 S; Temp 99.2(O); Pulse Ox 97% tk1 on R/A; Pain 7/10; 20:26 BP 114 / 71 RA Supine (auto/reg); Pulse 102; Resp 20 S; Temp 99.2(O); Pulse Ox 97% on tk1 R/A; Pain 8/10; 21:00 BP 110 / 66 RA Supine (auto/reg); Pulse 102 MON; Resp 20 S; Pulse Ox 100% on R/A; Pain tk1 8/10; 21:00 BP 152 / 98 RA Supine (auto/reg); Pulse 92 MON; Resp 18 S; Pulse Ox 99% on R/A; tk1 22:00 BP 147 / 98 RA Supine (auto/reg); Pulse 76 MON; Resp 16 S; Temp 97.9(O); Pulse Ox 100% tk1 on R/A; 23:00 BP 120 / 78 RA Supine (man/lg); Pulse 90 MON; Resp 14 S; Temp 98(O); Pulse Ox 98% on tk1 R/A; 08/11 00:00 BP 120 / 78 RA Supine (auto/reg); Pulse 90 MON; Resp 16 S; Pulse Ox 96% on R/A; tk1 [place] Coma Score: 08/10 20:39 Eye Response: spontaneous(4). Verbal Response: oriented(5). Motor Response: obeys jr8 commands(6). Total: 15. NIH Stroke Scale Scores: 20:39 NIHSS Score: 6 jr8 ED Course: 20:16 Patient arrived in ED. cs9 20:24 Kenyetta Desai is Primary Nurse. tk1 20:26 Triage completed. tk1 20:26 Bryan Barrios PA is PHCP. jr8 20:26 Mauro Reza MD is Attending Physician. jr8 20:26 Arm band placed on right wrist. Patient placed in an exam room, on a stretcher, on tk1 pulse oximetry. 20:32 Patient has correct armband on for positive identification. Bed in low position. Call tk1 light in reach. Side rails up X2. Adult w/ patient. Pulse ox on. NIBP on. 20:32 No provider procedures requiring assistance completed. Inserted saline lock: 20 gauge tk1 in left forearm, using aseptic technique. Blood collected. 20:34 CBC with Diff Sent. tk1 20:34 CMP Sent. tk1 20:34 Lipase Sent. tk1 21:26 CT Head Brain wo Cont In Process Unspecified. EDMS 22:00 IV discontinued, intact, bleeding controlled, No redness/swelling at site. Pressure tk1 dressing applied. Administered Medications: 20:42 Drug: NS 0.9% 1000 ml Route: IV; Rate: 1 bolus; Infused Over: 1 hrs; Site: left tk1 forearm; Delivery: Primary tubing; 22:04 Follow up: Response: No adverse reaction; IV Status: Completed infusion; IV Intake: tk1 1000ml 20:43 Not Given (Given in route to ED. PA updated.): Zofran (Ondansetron) 4 mg IVP once; tk1 over 2 minutes 22:04 Drug: Potassium Chloride 20 mEq Route: IV; Rate: calculated rate; Infused Over: 2 hrs; tk1 Site: left forearm; Delivery: Primary tubing; 08/11 00:10 Follow up: Response: No adverse reaction; IV Status: Completed infusion; IV Intake: tk1 100ml 08/10 22:04 Drug: Potassium Effervescent Tablet 50 mEq Route: PO; tk1 22:52 Follow up: Response: No adverse reaction tk1 Intake: 22:04 IV: 1000ml; Total: 1000ml. tk1 08/11 00:10 IV: 100ml; Total: 1100ml. tk1 Outcome: 08/10 22:50 Discharge ordered by MD. arreola 08/11 00:22 Discharged to home via wheelchair, with friend. tk1 Condition: stable Discharge instructions given to patient, friend, Instructed on discharge instructions, follow up and referral plans. medication usage, Demonstrated understanding of instructions, follow-up care, medications, Patient remains in ED RM 25 awaiting friend's arrival for transport. 00:58 Patient left the ED. tk1 NIH Stroke Scale - NIH Stroke Score Date: 08/10/2021 Time: 20:39 Total Score = 6 1a. Level of Consciousness (LOC) - 0(Alert) 1b. Level of Consciousness (LOC) (Month \T\ Age) - 1(One) 1c. LOC Commands (Open \T\ Closes Eyes/Sales Associate Cashier) - 0(Both) 2. Best Gaze (Lateral Gaze Paresis) - 0(Normal) 3. Visual Field Loss - 0(No visual loss) 4. Facial Palsy - 0(Normal) 5a. Left Arm: Motor (10-second hold) - 0(No drift) 5b. Right Arm: Motor (10-second hold) - 0(No drift) 6a. Left Leg: Motor (5-second hold - always test supine) - 4(No movement) 6b. Right Leg: Motor (5-second hold - always test supine) - 0(No drift) 7. Limb Ataxia (finger/nose \T\ heel/cherry - test with eyes open) - 0(Absent) 8. Sensory Loss (pinprick arms/legs/face) - 1(Mild to moderate loss) 9. Best Language: Aphasia (description/naming/reading) - 0(No aphasia) 10. Dysarthria (speech clarity - read or repeat words) - 0(Normal) 11. Extinction and Inattention (visual/tactile/auditory/spatial/personal) - 0(No abnormality) Initials: jrRafaela Signatures: Dispatcher [employer] EDBryan Black PA PA jr8 Marisol Morin cs9 Kenyetta Desai tk1
[2021-08-11 02:00] VITALS: BP 120/78; TEMP 98
[2021-08-11 02:01] VITALS: O2SAT 96
== END 2021-08-11 00:58 | disposition home or self-care (01) ==
LOC: ER 20:15
DX: R11.2 Nausea with vomiting, unspecified (principal); R51.9 Headache, unspecified; E87.6 Hypokalemia; Z86.73 Personal history of transient ischemic attack (TIA), and cerebral infarction without residual deficits; Z88.8 Allergy status to other drugs, medicaments and biological substances; F17.210 Nicotine dependence, cigarettes, uncomplicated
CPT/HCPCS: 96365; 96361; 85025; 36415; 83690; 80053; 70450; 99284; 96366; J3480; J7030

== ENCOUNTER 2021-08-25 13:11 | Emergency (ER) | payer OTHER ==
[2021-08-25 13:47] LABS: Absolute Lymphocytes (CBC) 0.5 K/uL (0.7-4.9); Hematocrit 43.8 % (39.6-49.0); Lymphocytes % 10.4 % (15.3-44.8); MPV 9.4 fL (7.6-11.3); RBC Red Blood Cell Count 6.31 M/uL (4.33-5.43)
[2021-08-25] MEDS ORDERED: ONDANSETRON 4 MG/2 ML VIAL ONE (14:06)
[2021-08-25] MEDS ORDERED: MORPHINE 4 MG/ML SYR ONE (14:06)
[2021-08-25] MEDS ORDERED: NA CHLORIDE 0.9% 1,000 ML ONE (14:07)
[2021-08-25] MEDS ORDERED: FAMOTIDINE 20 MG/2 ML VIAL IV ONE (14:07)
[2021-08-25 14:29] LABS: Albumin 2.6 g/dL (3.4-5.0); Magnesium 2.4 mg/dL (1.8-2.4)
[2021-08-25 14:35] LABS: Bilirubin Total 1.4 mg/dL (0.2-1.0); Protein, Total 7.4 g/dL (6.4-8.2)
[2021-08-25 14:38] LABS: Potassium 2.9 mmol/L (3.5-5.1)
[2021-08-25] MEDS ORDERED: NA CHLORIDE 0.9% 2,000 ML ONE (15:03)
[2021-08-25] MEDS ORDERED: FENTANYL CITR 100 MCG/2 ML ONE ×2 (15:03→22:09)
--- NOTE | 2021-08-25 15:24 | RAD REPORT ---
EXAM DESCRIPTION: CT - Abdomen Pelvis W Contrast - 08/25/2021 3:00 pm CLINICAL HISTORY: ABD PAIN COMPARISON: No comparisons TECHNIQUE: Biphasic, helical CT imaging of the abdomen and pelvis was performed following 100 ml non -ionic IV contrast. No oral contrast administered. All CT scans are performed using dose optimization technique as appropriate and may include automated exposure control or mA/KV adjustment according to patient size. FINDINGS: No suspicious findings in the lung bases. Patient has a pronounced fatty infiltration pattern of the liver with no focal liver lesions seen. No portal vein abnormality. Numerous granulomatous calcifications present in a normal size spleen. No p ancreatic or peripancreatic abnormality seen. Gallbladder and biliary tree are also without suspiciou s finding. Symmetric renal function is seen with no hydronephrosis or suspicious renal mass. No pyelonephritis o r acute parenchymal process. Mostly contracted urinary bladder shows no suspicious finding. No adrena l abnormalities. No dilated bowel loops or bowel wall thickening. Appendix is absent by history. Sigmoid diverticulosi s is present, minimal with no diverticulitis. No free air, free fluid or inflammatory stranding. No hernia or omental thickening. Patient has a few small sub centimeter periaortic lymph nodes. Bilatera l common iliac and external iliac chain lymphadenopathy is present up to 2 cm in size. No necrotic or abnormally vigorous enhancement seen. These are most likely reactive lymph nodes. Lymphoma or other aggressive process would be unlikely. These can be monitored with subsequent imaging. No suspicious bony findings. IMPRESSION: Contrast enhanced CT abdomen and pelvis showing no acute or emergent finding. Patient has bilateral common iliac and external iliac chain lymphadenopathy up to 2 cm in size. Lymph nodes are more numerous than typically seen but still most likely reactive. These can be re-evaluate d in 4-6 months. Diffuse fatty infiltration of the liver.
[2021-08-25] MEDS ORDERED: KCL 20 MEQ/100 mL IVPB 100 ML IV ONE (15:25)
--- NOTE | 2021-08-25 15:52 | RAD REPORT ---
EXAM DESCRIPTION: RAD - Chest Single View - 08/25/2021 3:10 pm CLINICAL HISTORY: ABDOMINAL DISTENTION COMPARISON: None available TECHNIQUE: AP portable chest image was obtained 08/25/2021 3:10 pm . FINDINGS: Lungs are clear. Heart and vasculature are normal. No measurable pleural effusion and no p neumothorax. No acute bony abnormality seen. No acute aortic findings suspected. IMPRESSION: No acute cardiopulmonary process.
--- NOTE | 2021-08-25 17:03 | RAD REPORT ---
EXAM DESCRIPTION: US - Abdomen Exam Limited - 08/25/2021 4:47 pm CLINICAL HISTORY: ABD PAIN COMPARISON: Abdomen Pelvis W Contrast dated 08/25/2021 FINDINGS: No gallstones, sludge or other abnormalities within the gallbladder lumen. There is no wal l thickening or pericholecystic fluid. No common duct stone or biliary tree dilatation identified. IMPRESSION: Normal gallbladder and biliary tree ultrasound.
[2021-08-25 17:04] LABS: SARS-COV-2 RT PCR NEGATIVE (NEGATIVE)
--- NOTE | 2021-08-25 17:55 | ER ---
Nurse's Notes [facility] Name: Sal Gomez Age: 21 yrs Sex: Male : 2000 Arrival Date: 08/25/2021 Time: 13:01 Bed 8 Private MD: Diagnosis: Biliary acute pancreatitis Presentation: 08/25 13:00 Chief complaint: EMS states: Toned out for syncopal episode while walking to the 7 bathroom; also N/V x 1 month, seen here 2 weeks ago and discharged with low potassium, pt reports dark red emesis and hard dark stool 2 days ago. 13:00 Coronavirus screen: At this time, the client does not indicate any symptoms associated [facility] with coronavirus-19. Ebola Screen: No symptoms or risks identified at this time. Initial Sepsis Screen: Does the patient meet any 2 criteria? No. Patient's initial sepsis screen is negative. Does the patient have a suspected source of infection? No. Patient's initial sepsis screen is negative. Risk Assessment: Do you want to hurt yourself or someone else? Patient reports no desire to harm self or others. Onset of symptoms is unknown. Care prior to arrival: None. 13:00 Method Of Arrival: EMS: [facility] 7 13:00 Acuity: DANICA 3 jl7 Triage Assessment: 13:00 General: Appears in no apparent distress. uncomfortable, Behavior is calm, cooperative, jl7 appropriate for age. Pain: Complains of pain in right lower quadrant and left lower quadrant Pain currently is 8 out of 10 on a pain scale. Quality of pain is described as crampy, Is continuous. EENT: Oral mucosa is dry. Cardiovascular: Patient's skin is warm and dry. Respiratory: Airway is patent Respiratory effort is even, unlabored, Respiratory pattern is regular, symmetrical. GI: Reports constipation, nausea, vomiting. Derm: Skin is pink, warm \T\ dry. 14:21 General: Appears in no apparent distress. Behavior is calm, cooperative. Neuro:. Neuro: jg9 Reports a syncopal episode patient reports syncope GRIZZLYMAN. 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 - Social history:: Smoking status: Patient reports the use of cigarette tobacco products. Screenin:21 Abuse screen: Denies threats or abuse. Denies injuries from another. Nutritional jg9 screening: No deficits noted. Tuberculosis screening: No symptoms or risk factors identified. Fall Risk None identified. Assessment: 13:00 General: See triage assessment. jl7 14:20 Reassessment: No changes from previously documented assessment. Patient and/or family jg9 updated on plan of care and expected duration. Pain level reassessed. Patient is alert, oriented x 3, equal unlabored respirations, skin warm/dry/pink. Pain: Complains of pain in abdomen Pain currently is 7 out of 10 on a pain scale. Neuro: Level of Consciousness is awake, alert, obeys commands, Oriented to person, place, time, situation. Cardiovascular: Rhythm is sinus tachycardia. 15:00 Reassessment: Patient appears in no apparent distress at this time. Patient and/or jl7 family updated on plan of care and expected duration. Pain level reassessed. Patient is alert, oriented x 3, equal unlabored respirations, skin warm/dry/pink. Reports decreased pain rated 5/10 at this time. 19:20 General: attempted to call report. requested a call back in 10 minutes due to staffing lg3 difficulties at this time . 20:30 General: attempted to call report. requested for another call back in 15 minutes. lg3 20:59 General: report called to ROSA Prabhakar. lg3 Vital Signs: 13:00 BP 99 / 54; Pulse 120; Resp 17; Temp 98; Pulse Ox 98% ; jl7 14:00 BP 102 / 61; Pulse 115; Resp 26; Pulse Ox 93% on R/A; jg9 15:00 BP 108 / 77; Pulse 107; Resp 14; Pulse Ox 97% ; jl7 15:31 BP 111 / 77; Pulse 108; Resp 15; Pulse Ox 97% ; Pain 5/10; jl7 19:00 BP 107 / 72; Pulse 103; Resp 18 S; Pulse Ox 97% on R/A; as6 21:15 BP 101 / 66; Pulse 105; Resp 18 S; Pulse Ox 99% on R/A; as6 ED Course: 13:00 phototypesetting equipment monitor on. Pulse ox on. NIBP on. Sheet given. jl7 13:01 Patient arrived in ED. jl7 13:06 Mauro Sandoval PA is PHCP. cp 13:06 Mauro Reza MD is Attending Physician. cp 13:10 Nuno Subramanian RN is Primary Nurse. jl7 13:14 Triage completed. jl7 13:14 Arm band placed on right wrist. jl7 13:20 Missed attempt(s): 22 gauge in left wrist. Bleeding controlled, band aid applied, jl7 catheter tip intact. 13:30 Initial lab(s) drawn, by wi, sent to lab. Inserted saline lock: 22 gauge in right jl7 antecubital area, using aseptic technique. Blood collected. 13:48 Bed in low position. Call light in reach. Side rails up X 1. tp1 13:48 EKG done, by ED staff. tp1 15:02 CT Abd/Pelvis - IV Contrast Only In Process Unspecified. EDMS 15:12 XRAY Chest (1 view) In Process Unspecified. EDMS 15:35 COVID swab sent to lab. jl7 16:48 US Abdomen Limited: RUQ/epigastric In Process Unspecified. EDMS 21:24 Primary Nurse role handed off by Nuno Subramanian, RN cs9 22:07 No provider procedures requiring assistance completed. Patient transferred, IV remains lg3 in place. intact, No redness/swelling at site. Administered Medications: 14:15 Drug: Zofran (Ondansetron) 4 mg Route: IVP; Site: right antecubital; jg9 15:00 Follow up: Response: No adverse reaction jl7 14:15 Drug: morphine 4 mg Route: IVP; Site: right antecubital; jg9 14:40 Follow up: Response: No adverse reaction; Pain is decreased jl7 14:18 Drug: NS 0.9% 1000 ml Route: IV; Rate: 1 bolus; Site: right antecubital; jg9 15:20 Follow up: IV Status: Completed infusion; IV Intake: 1000ml jl7 14:18 Drug: Pepcid (famotidine) 20 mg Route: IVP; Site: right antecubital; jg9 19:27 Follow up: Response: No adverse reaction jl7 15:00 Drug: NS 0.9% 1000 ml Route: IV; Rate: 1 bolus; Site: right antecubital; jl7 16:00 Follow up: Response: No adverse reaction; IV Status: Completed infusion; IV Intake: jl7 1000ml 15:00 Drug: fentaNYL (PF) 25 mcg Route: IVP; Site: right antecubital; jl7 15:20 Follow up: Response: No adverse reaction; Pain is decreased jl7 15:35 Drug: Potassium Chloride 20 mEq Route: IV; Rate: calculated rate; Site: right jl7 antecubital; 17:35 Follow up: Response: No adverse reaction; IV Status: Completed infusion jl7 15:43 Drug: NS 0.9% 1000 ml Route: IV; Rate: 1 bolus; Site: right antecubital; jl7 16:15 Follow up: Response: No adverse reaction; IV Status: Completed infusion; IV Intake: jl7 1000ml 22:07 Drug: fentaNYL (PF) 25 mcg Route: IVP; Site: right antecubital; lg3 22:07 Follow up: Response: No adverse reaction; RASS: Alert and Calm (0) lg3 Point of Care Testin:22 see labs jg9 Ranges: Intake: 15:20 IV: 1000ml; Total: 1000ml. jl7 16:00 IV: 1000ml; Total: 2000ml. jl7 16:15 IV: 1000ml; Total: 3000ml. jl7 Outcome: 17:55 ER care complete, transfer ordered by . cp 22:08 Transferred by ground EMS to [facility], Transfer form completed. lg3 22:08 Condition: stable 22:08 Instructed on the need for transfer. 22:08 Patient left the ED. lg3 Signatures: Dispatcher [employer] EDMS Mauro Sandoval PA PA cp Leal, Jahala RN RN jl7 Malissa Capone RN RN lg3 Marisol Morin 9 Michael Verduzco RN RN as6 Melia Gutierrez tp1 Randi Waller RN RN jg9 Corrections: (The following items were deleted from the chart) 18:08 18:07 Reassessment: Pt returned from MRI jl7 jl7
--- NOTE | 2021-08-25 17:55 | EDPHYS ---
Physician Documentation [facility] Name: Sal Gomez Age: 21 yrs Sex: Male : 2000 Arrival Date: 08/25/2021 Time: 13:01 Bed 8 Private MD: ED Physician Mauro Reza HPI: 08/25 13:15 This 21 yrs old Male presents to ER via EMS with complaints of Syncope, Nausea/Vomiting.cp 13:15 The patient has experienced syncope, lost consciousness. cp 13:15 Onset: The symptoms/episode began/occurred today. Duration: This was a single episode, cp that lasted an unknown period of time. Context: occurred at home, occurred while the patient was vomiting, Just prior to the episode the patient experienced abdominal pain, vomiting. Associated signs and symptoms: Pertinent negatives: chest pain, confusion, seizure, vomiting blood. Current symptoms: abdominal pain, nausea. 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 - Social history:: Smoking status: Patient reports the use of cigarette tobacco products. ROS: 13:20 Constitutional: Negative for body aches, chills, fever. cp 13:20 Eyes: Negative for injury, pain, redness, and discharge. cp 13:20 Cardiovascular: Negative for chest pain. 13:20 Respiratory: Negative for cough, shortness of breath, wheezing. 13:20 Abdomen/GI: Positive for abdominal pain, nausea and vomiting, Negative for constipation, hematemesis, black/tarry stool. 13:20 : Negative for urinary symptoms. 13:20 Neuro: Positive for syncope, Negative for altered mental status. 13:20 All other systems are negative. Exam: 13:25 Head/Face: Normocephalic, atraumatic. cp 13:25 Constitutional: The patient appears in no acute distress, alert, awake, non-toxic, well developed, well nourished, uncomfortable. 13:25 Eyes: Periorbital structures: appear normal, Conjunctiva: normal, no exudate, no injection, Sclera: no appreciated abnormality, Lids and lashes: appear normal, bilaterally. 13:25 ENT: External ear(s): are unremarkable, Nose: is normal, Mouth: Lips: moist, Oral mucosa: moist, Posterior pharynx: Airway: no evidence of obstruction, patent. 13:25 Chest/axilla: Inspection: normal, Palpation: is normal, no crepitus, no tenderness. 13:25 Cardiovascular: Rate: tachycardic, Rhythm: regular. 13:25 Respiratory: the patient does not display signs of respiratory distress, Respirations: normal, no use of accessory muscles, no retractions, labored breathing, is not present, Breath sounds: are clear throughout, no decreased breath sounds, no stridor, no wheezing. 13:25 Abdomen/GI: Inspection: abdomen appears normal, Bowel sounds: active, all quadrants, Palpation: soft, in all quadrants, severe abdominal tenderness, in the umbilical area, right upper quadrant and left upper quadrant, rebound tenderness, is not appreciated, voluntary guarding, is elicited in the umbilical area, right upper quadrant and left upper quadrant. 13:25 Neuro: Orientation: to person, place \\T\\ time. Mentation: is normal. 13:55 ECG was reviewed by the Attending Physician. cp Vital Signs: 13:00 BP 99 / 54; Pulse 120; Resp 17; Temp 98; Pulse Ox 98% ; jl7 14:00 BP 102 / 61; Pulse 115; Resp 26; Pulse Ox 93% on R/A; jg9 15:00 BP 108 / 77; Pulse 107; Resp 14; Pulse Ox 97% ; jl7 15:31 BP 111 / 77; Pulse 108; Resp 15; Pulse Ox 97% ; Pain 5/10; jl7 19:00 BP 107 / 72; Pulse 103; Resp 18 S; Pulse Ox 97% on R/A; as6 21:15 BP 101 / 66; Pulse 105; Resp 18 S; Pulse Ox 99% on R/A; as6 MDM: 13:10 Patient medically screened. cp 17:10 Data reviewed: vital signs, nurses notes, lab test result(s), EKG, radiologic studies, cp CT scan, ultrasound, I have discussed the patient's presentation/case with the attending Emergency Department Physician;. 17:40 Physician consultation: Mere Caro MD regarding consult, patient's condition, after cp a discussion of the case, a recommendation for transfer for higher level of care is made, wants consult with GI and GI not available today. 18:45 Physician consultation: was contacted at 18:40, regarding regarding transfer, to [facility]. patient's condition, accepting physician will be DR Dow, hospitalist. 08/25 13:09 Order name: CBC with Diff; Complete Time: 14:54 cp 04 14:54 Interpretation: Normal except: RBC 6.31; MCV 69.4; MCH 23.2; PLT 127; RDW 17.0; SAE% cp 82.7; LYM% 10.4; LYMA 0.5. 04 13:09 Order name: CMP; Complete Time: 14:54 cp 08/25 14:55 Interpretation: Normal except: NA 127; CL 89; GLUC 123; BUN 43; CA 7.6; ALB 2.6; K 2.9; cp CRE 1.45; GFR 62; AST 358; ALT 105; ALK 133; BILIT 1.4; GLOB 4.8; A/G 0.5. 08/25 13:09 Order name: Lipase; Complete Time: 14:54 cp 08/25 14:54 Interpretation: Abnormal: LIP 6825. cp 08/25 13:09 Order name: Magnesium; Complete Time: 14:54 cp 08/25 13:46 Order name: Glucose, Ancillary Testing; Complete Time: 13:57 EDMS 08/25 15:02 Order name: COVID-19/FLU A+B (Document "Date of Onset" if Symptomatic); Complete Time: cp 17:08 08/25 16:04 Order name: Lipid Profile; Complete Time: 18:34 cp 08/25 17:13 Order name: AMMONIA; Complete Time: 18:34 cp 08/25 17:13 Order name: Procalcitonin; Complete Time: 01:04 cp 08/25 17:13 Order name: Lactate; Complete Time: 18:30 cp 08/25 17:14 Order name: PT-INR; Complete Time: 18:30 cp 08/25 18:15 Order name: PTT, Activated Partial Thromb; Complete Time: 18:30 EDMS 08/25 13:09 Order name: CT Abd/Pelvis - IV Contrast Only; Complete Time: 16:00 cp 08/25 13:09 Order name: IV Saline Lock; Complete Time: 14:19 cp 08/25 13:09 Order name: Labs collected and sent; Complete Time: 14:19 cp 08/25 13:09 Order name: EKG; Complete Time: 13:12 cp 08/25 13:09 Order name: EKG - Nurse/Tech; Complete Time: 14:17 cp 08/25 14:56 Order name: XRAY Chest (1 view); Complete Time: 16:00 cp 08/25 16:04 Order name: US Abdomen Limited: RUQ/epigastric; Complete Time: 17:08 cp EC:55 Rate is 117 beats/min. Rhythm is regular. MS interval is normal. QRS interval is cp normal. QT interval is normal. T waves are Inverted in lead III. Interpreted by me. Reviewed by me. Administered Medications: 14:15 Drug: Zofran (Ondansetron) 4 mg Route: IVP; Site: right antecubital; j9 15:00 Follow up: Response: No adverse reaction jl7 14:15 Drug: morphine 4 mg Route: IVP; Site: right antecubital; jg9 14:40 Follow up: Response: No adverse reaction; Pain is decreased jl7 14:18 Drug: NS 0.9% 1000 ml Route: IV; Rate: 1 bolus; Site: right antecubital; jg9 15:20 Follow up: IV Status: Completed infusion; IV Intake: 1000ml jl7 14:18 Drug: Pepcid (famotidine) 20 mg Route: IVP; Site: right antecubital; j9 19:27 Follow up: Response: No adverse reaction jl7 15:00 Drug: NS 0.9% 1000 ml Route: IV; Rate: 1 bolus; Site: right antecubital; jl7 16:00 Follow up: Response: No adverse reaction; IV Status: Completed infusion; IV Intake: jl7 1000ml 15:00 Drug: fentaNYL (PF) 25 mcg Route: IVP; Site: right antecubital; jl7 15:20 Follow up: Response: No adverse reaction; Pain is decreased jl7 15:35 Drug: Potassium Chloride 20 mEq Route: IV; Rate: calculated rate; Site: right jl7 antecubital; 17:35 Follow up: Response: No adverse reaction; IV Status: Completed infusion jl7 15:43 Drug: NS 0.9% 1000 ml Route: IV; Rate: 1 bolus; Site: right antecubital; jl7 16:15 Follow up: Response: No adverse reaction; IV Status: Completed infusion; IV Intake: jl7 1000ml 22:07 Drug: fentaNYL (PF) 25 mcg Route: IVP; Site: right antecubital; 3 22:07 Follow up: Response: No adverse reaction; RASS: Alert and Calm (0) lg3 Point of Care Testin:22 see labs jg9 Ranges: Critical Glucose Levels:Adult <50 mg/dl or >400 mg/dl <40 mg/dl or >180 mg/dl Disposition Summary: 08/25/21 17:55 Transfer Ordered Transfer Location: [facility] cp Reason: Higher level of care cp Condition: Stable cp Problem: new cp Symptoms: have improved cp Accepting Physician: DR Dow(08/25/21 22:08) lg3 Diagnosis - Biliary acute pancreatitis cp Forms: - Medication Reconciliation Form cp - SBAR form cp Addendum: 08/31/2021 18:56 Co-signature as Attending Physician, Mauro Reza MD I agree with the assessment and c guzman plan of care. Signatures: Dispatcher [employer] Mauro Hedrick MD MD cha Page, Corey, PA PA cp Nuno Subramanian RN RN jl7 Malissa Capone RN RN lg3 Randi Waller RN RN jg9 Corrections: (The following items were deleted from the chart) 08/25 18:14 17:13 PTT, ACTIVATED+COAG.LAB.BRZ ordered. EDID EDMS 18:35 17:55 Doctor cp cp 22:08 18:35 DR Dow [facility] 22:17 08/24 13:25 Constitutional: The patient appears in no acute distress, alert, awake, cp non-toxic, well developed, well nourished, uncomfortable, cp 08/25 22:17 08/24 13:25 Head/Face: Normocephalic, atraumatic. cp cp 08/25 22:17 08/24 13:25 Eyes: Periorbital structures: appear normal, Conjunctiva: normal, no cp exudate, no injection, Sclera: no appreciated abnormality, Lids and lashes: appear normal, bilaterally, cp 08/25 21:08/24 13:25 ENT: External ear(s): are unremarkable, Nose: is normal, Mouth: Lips: cp moist, Oral mucosa: moist, Posterior pharynx: Airway: no evidence of obstruction, patent, cp 08/25 21:08/24 13:25 Chest/axilla: Inspection: normal, Palpation: is normal, no crepitus, no cp tenderness, cp 08/25 21:08/24 13:25 Cardiovascular: Rate: tachycardic, Rhythm: regular, cp cp 08/25 21:08/24 13:25 Respiratory: the patient does not display signs of respiratory distress, cp Respirations: normal, no use of accessory muscles, no retractions, labored breathing, is not present, Breath sounds: are clear throughout, no decreased breath sounds, no stridor, no wheezing, cp 08/25 21:08/24 13:25 Abdomen/GI: Inspection: abdomen appears normal, Bowel sounds: active, all cp quadrants, Palpation: soft, in all quadrants, severe abdominal tenderness, in the umbilical area, right upper quadrant and left upper quadrant, rebound tenderness, is not appreciated, voluntary guarding, is elicited in the umbilical area, right upper quadrant and left upper quadrant, cp 08/25 21:08/24 13:25 Neuro: Orientation: to person, place \\T\\ time. Mentation: is normal, cp cp
[2021-08-25 18:19] LABS: Protime INR 3.02
[2021-08-26 05:30] VITALS: BP 101/66; O2SAT 99
--- NOTE | 2021-08-28 09:45 | EKG ---
Test Date: 2021-08-25 Test Time: 13:46:28 Solidworks Designer: DEL MEASUREMENT RESULTS: Intervals: Rate: 117 KS: 152 QRSD: 94 QT: 346 QTc: 482 [place]: P: 61 KS: 152 QRS: 78 T: 11 INTERPRETIVE STATEMENTS: Sinus tachycardia T wave abnormality, consider inferior ischemia Abnormal ECG Compared to ECG 05/02/2021 21:17:08 T-wave abnormality now present Possible ischemia now present Electronically Signed On 08-28-21 09:36:28 CDT by Mitchell Villeda
== END 2021-08-25 22:08 | disposition short-term general hospital (02) ==
LOC: ER 13:11
DX: K85.10 Biliary acute pancreatitis without necrosis or infection (principal); R11.2 Nausea with vomiting, unspecified; R55 Syncope and collapse; I10 Essential (primary) hypertension; F31.9 Bipolar disorder, unspecified; Z20.822 Contact with and (suspected) exposure to COVID-19; Z88.8 Allergy status to other drugs, medicaments and biological substances; Z91.048 Other nonmedicinal substance allergy status
CPT/HCPCS: 96365; 96361; 93005; 85025; 36415; 82140; 83735; 85610; 80061; 82947; 83605; 85730; 83690; 80053; 84145; 0240U; 74177; 71045; 76705; 96375; 99285; 96366; Q9967; J3480; J3010 ×2; J7030 ×2; J2405

== ENCOUNTER 2021-12-06 18:58 | Emergency (ER) | payer OTHER ==
[2021-12-06 21:36] LABS: Absolute Lymphocytes (CBC) 1.5 K/uL (0.7-4.9); Hematocrit 40.4 % (39.6-49.0); Lymphocytes % 10.9 % (15.3-44.8); MCV 76.2 fL (80-100); MPV 8.9 fL (7.6-11.3)
[2021-12-06 21:53] LABS: Albumin 2.5 g/dL (3.4-5.0); Bilirubin Total 0.6 mg/dL (0.2-1.0); Protein, Total 6.5 g/dL (6.4-8.2)
[2021-12-06 21:55] LABS: Potassium 2.7 mmol/L (3.5-5.1)
--- NOTE | 2021-12-06 21:55 | RAD REPORT ---
EXAM DESCRIPTION: CTAbdomen Pelvis W Contrast - 12/06/2021 9:33 pm CLINICAL HISTORY: abdominal pain COMPARISON: Abdomen Pelvis W Contrast dated 08/25/2021bdomen Pelvis W Contrast dated 08/25/2021; Ab domen Exam Limited dated 08/25/2021 TECHNIQUE: CT of the abdomen and pelvis was performed. All CT scans are performed using dose optimization technique as appropriate and may include automated exposure control or mA/KV adjustment according to patient size. FINDINGS: Lower chest: No acute abnormality. Liver: Steatosis. Biliary: No biliary ductal dilatation. Stomach: No significant focal abnormality. Duodenum: No significant focal abnormality. Pancreas: Sequela of recent pancreatitis. There is fluid in the pancreas. There are several surgical drains . Spleen: Splenomegaly. Adrenal: No suspicious lesions. Kidney/ureter: No hydronephrosis. No renal calculi. Retroperitoneum: No retroperitoneal adenopathy. Vascular: No aneurysm. Bowel: No significant focal abnormality. Peritoneum: Surgical drains at the pancreatic bed and along the left para colonic gutter. Partially l oculated fluid and gas in the left upper quadrant subjacent to the left hemidiaphragm and in the agustín rosplenic ligament. The loculated fluid in the right lower quadrant measures 6 x 6 x 3 cm. The locula hernandez fluid along the pancreatic tail measures 7. 0 cm x 4.3 x 2.3 cm. Bladder: Nonspecific circumferential bladder wall thickening. Reproductive: No adnexal masses. Bones: No acute fracture. Other: n/a IMPRESSION: Sequela of reported recent a necrotizing pancreatitis. Interval imaging is not available for comparison. Combination of loculated and non loculated fluid collections within the abdomen. John gical drains are present though not in the vicinity of the collections. The sterility of the fluid is indeterminate. Partially loculated fluid and gas underneath the left hemidiaphragm also has indeterm inate sterility. The gas is presumably related to recent surgery and during placement.
[2021-12-06] MEDS ORDERED: POTASSIUM CL SA 10 MEQ TAB PO ONE (22:15)
[2021-12-06] MEDS ORDERED: ONDANSETRON 4 MG/2 ML VIAL ONE (23:21)
[2021-12-06] MEDS ORDERED: PIPERACIL/TAZO 3.375 GM VIAL IV ONE (23:21)
[2021-12-06] MEDS ORDERED: MORPHINE 4 MG/ML SYR ONE (23:21)
[2021-12-06] MEDS ORDERED: NA CHLORIDE 0.9% 100 ML ONE (23:21)
--- NOTE | 2021-12-07 01:16 | ER ---
Nurse's Notes [facility] Name: Sal Gomez Age: 21 yrs Sex: Male : 2000 Arrival Date: 12/06/2021 Time: 19:00 Bed 3 Private MD: Diagnosis: Abdominal pain, unspecified;Abdominal fluid collections Presentation: 12/06 19:43 Chief complaint: Patient states: "For the past couple of days I've been having vomiting as6 and diarrhea" pt recently had necrotizing pancreatitis. Coronavirus screen: At this time, the client does not indicate any symptoms associated with coronavirus-19. Ebola Screen: No symptoms or risks identified at this time. Initial Sepsis Screen: Does the patient meet any 2 criteria? No. Patient's initial sepsis screen is negative. Does the patient have a suspected source of infection? No. Patient's initial sepsis screen is negative. Risk Assessment: Do you want to hurt yourself or someone else? Patient reports no desire to harm self or others. Onset of symptoms was December 04, 2021. 19:43 Method Of Arrival: EMS: [facility] as6 19:43 Acuity: DANICA 3 as6 Triage Assessment: 20:02 General: Appears in no apparent distress. Behavior is calm, cooperative. Pain: as6 Complains of pain in abdomen. GI: Reports lower abdominal pain, upper abdominal pain, diarrhea, nausea, vomiting. 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 - Social history:: Smoking status: Reported history of juuling and/or vaping. Screenin:46 Abuse screen: Denies threats or abuse. Nutritional screening: Has had N/V for 3 or more ke1 days. Tuberculosis screening: No symptoms or risk factors identified. Fall Risk None identified. Assessment: 20:47 Neuro: Level of Consciousness is awake, alert, Oriented to person, place, time, ke1 situation. GI: Abdomen is round Bowel sounds present X 4 quads. Abd is soft Abdomen is tender to palpation X 4 quads. Reports lower abdominal pain, upper abdominal pain, nausea, vomiting. 22:31 Reassessment: Patient appears in no apparent distress at this time. Patient is alert, ke1 oriented x 3, equal unlabored respirations, skin warm/dry/pink. Patient denies pain at this time. 12/07 00:32 Reassessment: Patient appears in no apparent distress at this time. No changes from ke1 previously documented assessment. 01:48 Reassessment: Patient appears in no apparent distress at this time. No changes from ke1 previously documented assessment. 03:43 Pain: Complains of pain in abdomen Pain does not radiate. Pain currently is 7 out of 10 ke1 on a pain scale. at worst was 10 out of 10 on a pain scale. level that patient reports is acceptable is 2 out of 10 on a pain scale. 04:38 Reassessment: Patient appears in no apparent distress at this time. Patient sleeping at ke1 this time Patient states symptoms have improved. 07:17 General:. kb3 10:09 General: Reports called to Nidia LEE at [facility]. Awaiting transport. Pt kb3 updated regarding transfer. 10:12 Reassessment: 1 pedi culture sent after addition IV attempt. 3 X's butterfly attempts tw2 for blood cultures by [employer] Tech. 10:30 General: [facility] en route. ETA 30 minutes. kb3 Vital Signs: 12/06 19:43 BP 136 / 108; Pulse 114; Resp 18 S; Temp 99.0(TE); Pulse Ox 100% on R/A; Weight 95.25 as6 kg (R); Height 5 ft. 7 in. (170.18 cm) (R); Pain 6/10; 22:29 BP 146 / 106; Pulse 95; Resp 17; Pulse Ox 99% on R/A; Pain 0/10; ke1 12/07 00:32 BP 123 / 92; Pulse 89; Resp 17; Pulse Ox 97% on R/A; Pain 2/10; ke1 01:48 BP 127 / 95; Pulse 97; Resp 18; Pulse Ox 100% on R/A; ke1 02:45 BP 130 / 100; Pulse 72; Resp 17; Pulse Ox 99% on R/A; ke1 03:45 BP 132 / 103; Pulse 86; Resp 16; Pulse Ox 100% on R/A; ke1 04:57 BP 129 / 99; Pulse 65; Resp 18; Pulse Ox 98% on R/A; Pain 0/10; ke1 07:00 BP 133 / 99; Pulse 62; Resp 18; Pulse Ox 100% ; Pain 0/10; kb3 08:00 BP 129 / 96; Pulse 79; Resp 18; Pulse Ox 100% ; Pain 9/10; kb3 09:00 Pain 5/10; kb3 09:00 BP 122 / 93; Pulse 65; Resp 18; Pulse Ox 99% ; Pain 5/10; kb3 12/06 19:43 Body Mass Index 32.89 (95.25 kg, 170.18 cm) as6 ED Course: 12/06 19:00 Patient arrived in ED. as 19:46 Heather Angeles FNP-C is PHCP. kb 19:46 Angel Mcdonald MD is Attending Physician. kb 19:46 Triage completed. as6 19:49 Arm band placed on. as6 20:02 COVID-19 SARS RT PCR (Document "Date of Onset" if Symptomatic) Sent. as6 20:02 Flu Sent. as6 20:28 Marline Owen, ROSA is Primary Nurse. kd3 20:48 Bed in low position. Call light in reach. ke1 21:19 CBC with Diff Sent. kd3 21:19 CMP Sent. kd3 21:19 Lipase Sent. kd3 21:24 Inserted saline lock: 20 gauge in left antecubital area, using aseptic technique. Blood kd3 collected. 21:35 CT Abd/Pelvis - IV Contrast Only In Process Unspecified. EDMS 22:51 initiated a transfer with Yamilka from [facility]. mw2 23:36 [facility] denied due to capacity the Transfer Center said to try back in the morning. mw2 23:53 initiated a transfer with Jeny from [facility]. mw2 12/07 01:04 [facility] denied due to capacity. mw2 07:10 Attending Physician role handed off by Angel Mcdonald MD sp3 07:10 Hi Mireles MD is Attending Physician. sp3 07:15 Primary Nurse role handed off by Marline Owen RN kb3 07:15 Shannan Stanley, ROSA is Primary Nurse. kb3 07:41 Primary Nurse role handed off by Shannan Stanley, ROSA aa5 07:45 re initiated transfer to [facility]. bd 08:30 Shannan Stanley RN is Primary Nurse. kb3 08:42 was contacted by mary at [facility], was asked for a extention. extention was bd given. 10:20 pt accepted in transfer to [facility] by dr Field. admin approval given by roderick Mckee. 10:21 Missed attempt(s): 22 gauge in right antecubital area. blood drawn for 1 pedi culture. tw2 Bleeding controlled, band aid applied, catheter tip intact. 11:04 No provider procedures requiring assistance completed. kb3 11:05 Patient transferred, IV remains in place. kb3 Administered Medications: 12/06 22:10 Drug: Potassium Chloride 40 mEq Route: PO; kd3 12/07 01:50 Follow up: Response: No adverse reaction ke1 12/06 23:45 Drug: morphine 4 mg Route: IVP; Infused Over: 4 mins; Site: left antecubital; kd3 12/07 00:20 Follow up: Response: Marked relief of symptoms; Pain is decreased ke1 12/06 23:45 Drug: Zofran (Ondansetron) 4 mg Route: IVP; Site: left antecubital; kd3 12/07 00:20 Follow up: Response: No adverse reaction ke1 12/06 23:45 Drug: Zosyn (piperacillin-tazobactam) 3.375 grams Route: IVPB; Infused Over: 60 mins; kd3 Site: left antecubital; 12/07 03:51 Drug: morphine 4 mg Route: IVP; Infused Over: 4 mins; Site: left antecubital; ke1 04:34 Follow up: Response: Marked relief of symptoms; Pain is decreased ke1 03:51 Drug: Zofran (Ondansetron) 4 mg Route: IVP; Site: left antecubital; ke1 04:34 Follow up: Response: Marked relief of symptoms ke1 07:57 Drug: NS 0.9% 1000 ml Route: IV; Rate: 125 ml/hr; Site: left antecubital; 6 07:58 Drug: Zosyn (piperacillin-tazobactam) 3.375 grams Route: IVPB; Infused Over: 60 mins; 6 Site: left antecubital; 08:31 Follow up: IV Status: Completed infusion kb3 08:19 Drug: morphine 4 mg Route: IVP; Infused Over: 4 mins; Site: left antecubital; 6 09:00 Follow up: Pain 5/10 Adult kb3 11:00 Drug: morphine 4 mg Route: IVP; Infused Over: 4 mins; Site: left antecubital; kb3 11:06 Follow up: Response: No adverse reaction kb3 11:03 Drug: Zofran (Ondansetron) 4 mg Route: IVP; Site: left antecubital; kb3 11:06 Follow up: Response: No adverse reaction kb3 Medication: 12/06 21:24 VIS not applicable for this client. kd3 Outcome: 12/07 01:15 ER care complete, transfer ordered by . rn 11:04 Transferred by ground EMS to [facility], Transfer form completed. kb3 X-rays sent w/ patient. 11:04 Condition: stable 11:04 Instructed on follow up and referral plans. the need for transfer, Demonstrated understanding of instructions. 11:07 Patient left the ED. kb3 Signatures: Dispatcher [employer] EDMS Heather Angeles, SALAS-C FLAME CHANNELER-CkChel Azar Amelia as Nieto, Roman, MD MD rn Calderon, Audri, RN RN aa5 Odette Crespo RN RN 2 Corine Aguilar 2 Hi Mireles MD MD sp3 Michael Verduzco RN RN as6 Marline Owen RN RN kd3 Randi Cuadra RN RN jh6 Kota Luke RN RN ke1 Shannan Stanley, RN RN kb3 Corrections: (The following items were deleted from the chart) 12/06 23:53 23:36 [facility] denied due to capacity mw2 mw2
--- NOTE | 2021-12-07 01:16 | EDPHYS ---
Physician Documentation [facility] Name: Sal Gomez Age: 21 yrs Sex: Male : 2000 Arrival Date: 12/06/2021 Time: 19:00 Bed 3 Private MD: ED Physician Hi Mireles HPI: 12/06 22:16 This 21 yrs old Male presents to ER via EMS with complaints of Vomiting/Diarrhea. kb 22:17 The patient presents to the emergency department with nausea, vomiting, diarrhea. kb Onset: The symptoms/episode began/occurred 3 day(s) ago. Patient reports diarrhea, nausea and vomiting for the last few days. Reports he was diagnosed with necrotizing pancreatitis on August 25, 2021. He was sent to [facility] at that time, had BRODY drains placed. Patient still has BRODY drains in place.. 22:18 Possible causes: unknown. The symptoms are aggravated by nothing. The symptoms are kb alleviated by nothing. Associated signs and symptoms: Pertinent positives: diarrhea, nausea, vomiting, Pertinent negatives: fever. Severity of symptoms: At their worst the symptoms were moderate in the emergency department the symptoms are unchanged. The patient has not experienced similar symptoms in the past. The patient has not recently seen a physician. 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 - Social history:: Smoking status: Reported history of juuling and/or vaping. ROS: 22:18 Constitutional: Negative for fever, chills, and weight loss. kb 22:18 Abdomen/GI: Positive for nausea, vomiting, and diarrhea, Negative for abdominal pain. 22:18 All other systems are negative. Exam: 22:18 Constitutional: This is a well developed, well nourished patient who is awake, alert, kb and in no acute distress. Head/Face: Normocephalic, atraumatic. ENT: Moist Mucous membranes Cardiovascular: Regular rate and rhythm with a normal S1 and S2. No gallops, murmurs, or rubs. No pulse deficits. Respiratory: Respirations even and unlabored. No increased work of breathing. Talking in full sentences Abdomen/GI: Soft, non-tender. No distention Skin: Warm, dry with normal turgor. Normal color. MS/ Extremity: Pulses equal, no cyanosis. Neurovascular intact. Full, normal range of motion. Neuro: Awake and alert, GCS 15, oriented to person, place, time, and situation. Moves all extremities. Normal gait. Psych: Awake, alert, with orientation to person, place and time. Behavior, mood, and affect are within normal limits. 22:18 Abdomen/GI: Inspection: BRODY drains in place. Vital Signs: 19:43 BP 136 / 108; Pulse 114; Resp 18 S; Temp 99.0(TE); Pulse Ox 100% on R/A; Weight 95.25 as6 kg (R); Height 5 ft. 7 in. (170.18 cm) (R); Pain 6/10; 22:29 BP 146 / 106; Pulse 95; Resp 17; Pulse Ox 99% on R/A; Pain 0/10; ke1 12/07 00:32 BP 123 / 92; Pulse 89; Resp 17; Pulse Ox 97% on R/A; Pain 2/10; ke1 01:48 BP 127 / 95; Pulse 97; Resp 18; Pulse Ox 100% on R/A; ke1 02:45 BP 130 / 100; Pulse 72; Resp 17; Pulse Ox 99% on R/A; ke1 03:45 BP 132 / 103; Pulse 86; Resp 16; Pulse Ox 100% on R/A; ke1 04:57 BP 129 / 99; Pulse 65; Resp 18; Pulse Ox 98% on R/A; Pain 0/10; ke1 07:00 BP 133 / 99; Pulse 62; Resp 18; Pulse Ox 100% ; Pain 0/10; kb3 08:00 BP 129 / 96; Pulse 79; Resp 18; Pulse Ox 100% ; Pain 9/10; kb3 09:00 Pain 5/10; kb3 09:00 BP 122 / 93; Pulse 65; Resp 18; Pulse Ox 99% ; Pain 5/10; kb3 12/06 19:43 Body Mass Index 32.89 (95.25 kg, 170.18 cm) as6 MDM: 12/06 19:46 Patient medically screened. kb 22:19 Data reviewed: vital signs, nurses notes. Data interpreted: Pulse oximetry: on room air kb is 100 %. Interpretation: normal. 22:47 Counseling: I had a detailed discussion with the patient and/or guardian regarding: the kb historical points, exam findings, and any diagnostic results supporting the discharge/admit diagnosis, lab results, radiology results, the need to transfer to another facility, for higher level of care. 12/07 00:28 ED course: [facility] denied transfer due to capacity. Transfer center recommended we try kb again in the morning. 01:12 Differential diagnosis: Nonspecific abd pain, abscess, fluid collections, pseudocyst, rn pancreatitis. ED course: [facility] declined patient even though patient had surgery there, [facility] declined due to capacity. Consulted with Dr. Sims who agrees patient should be transferred back to his surgeon who performed procedure, does not think patient would be best served here, recommends holding patient as [facility] recommends and call in AM to try transfer again, cover with abx, and keep NPO.. 07:38 ED course: I taken over care of this patient from the night physician after shift sp3 change. Patient is sleeping comfortably with normal vital signs. We will administer a second dose of Zosyn, start maintenance fluids, and obtain a.m. labs. We will continue to attempt to transfer this patient to any accepting hospital, but particularly to [facility] in [facility] who is this patient and has all records as well as the prior physicians who placed his BRODY drains. Administration has been notified and we will attempt transfer.. 12/06 19:47 Order name: CBC with Diff; Complete Time: 21:40 kb 12/07 07:35 Interpretation: WBC 13.8. sp3 12/06 19:47 Order name: CMP; Complete Time: 21:58 kb 12/06 19:47 Order name: Lipase; Complete Time: 21:58 kb 12/06 19:47 Order name: Flu; Complete Time: 20:31 kb 12/06 19:47 Order name: COVID-19 SARS RT PCR (Document "Date of Onset" if Symptomatic); Complete kb Time: 21:03 12/06 21:46 Order name: CREATININE WHOLE BLOOD; Complete Time: 21:54 EDMS 12/06 19:47 Order name: CT Abd/Pelvis - IV Contrast Only; Complete Time: 22:09 kb 12/07 07:40 Order name: CBC with Diff; Complete Time: 09:09 sp3 12/07 07:40 Order name: CMP; Complete Time: 09:09 sp3 12/07 07:40 Order name: Lipase; Complete Time: 09:09 sp3 12/07 09:09 Order name: Blood Culture Adult (2) sp3 12/06 19:47 Order name: IV Saline Lock; Complete Time: 21:19 kb 12/06 19:47 Order name: Labs collected and sent; Complete Time: 21:19 kb 12/06 23:12 Order name: NPO; Complete Time: 23:45 kb 12/07 07:40 Order name: Labs collected and sent; Complete Time: 07:59 sp3 Administered Medications: 12/06 22:10 Drug: Potassium Chloride 40 mEq Route: PO; kd3 12/07 01:50 Follow up: Response: No adverse reaction ke1 12/06 23:45 Drug: morphine 4 mg Route: IVP; Infused Over: 4 mins; Site: left antecubital; kd3 12/07 00:20 Follow up: Response: Marked relief of symptoms; Pain is decreased ke1 12/06 23:45 Drug: Zofran (Ondansetron) 4 mg Route: IVP; Site: left antecubital; kd3 12/07 00:20 Follow up: Response: No adverse reaction 12/06 23:45 Drug: Zosyn (piperacillin-tazobactam) 3.375 grams Route: IVPB; Infused Over: 60 mins; kd3 Site: left antecubital; 12/07 03:51 Drug: morphine 4 mg Route: IVP; Infused Over: 4 mins; Site: left antecubital; ke1 04:34 Follow up: Response: Marked relief of symptoms; Pain is decreased ke1 03:51 Drug: Zofran (Ondansetron) 4 mg Route: IVP; Site: left antecubital; ke1 04:34 Follow up: Response: Marked relief of symptoms ke1 07:57 Drug: NS 0.9% 1000 ml Route: IV; Rate: 125 ml/hr; Site: left antecubital; jh6 07:58 Drug: Zosyn (piperacillin-tazobactam) 3.375 grams Route: IVPB; Infused Over: 60 mins; 6 Site: left antecubital; 08:31 Follow up: IV Status: Completed infusion kb3 08:19 Drug: morphine 4 mg Route: IVP; Infused Over: 4 mins; Site: left antecubital; 6 09:00 Follow up: Pain 5/10 Adult kb3 11:00 Drug: morphine 4 mg Route: IVP; Infused Over: 4 mins; Site: left antecubital; kb3 11:06 Follow up: Response: No adverse reaction kb3 11:03 Drug: Zofran (Ondansetron) 4 mg Route: IVP; Site: left antecubital; kb3 11:06 Follow up: Response: No adverse reaction kb3 Disposition Summary: 12/07/21 01:15 Transfer Ordered Transfer Location: [facility] rn Reason: Higher level of care rn Condition: Stable rn Problem: new rn Symptoms: are unchanged rn Accepting Physician: (12/07/21 11:07) kb3 Diagnosis - Abdominal pain, unspecified rn - Abdominal fluid collections rn Forms: - Medication Reconciliation Form rn - SBAR form rn Signatures: Dispatcher [employer] EDHeather Colindres FNP-C PRODUCT DELIVERY SPECIALIST-Angel Eddy MD MD rn Patel, Setul, MD MD sp3 Michael Verduzco RN RN [id number] Marline Owen RN RN [id number] Randi Cuadra RN RN jh6 Kota Luke RN RN ke1 Shannan Stanley, RN RN kb3 Corrections: (The following items were deleted from the chart) 12/06 22:18 22:17 Patient reports nausea and vomiting for the last few days. Reports he was kb diagnosed with necrotizing pancreatitis on August 25, 2021. He was sent to [facility] at that time, had BRODY drains placed. Patient still has BRODY drains in place.. kb 12/07 11:07 01:15 Dr. zamora kb3
[2021-12-07] MEDS ORDERED: MORPHINE 4 MG/ML SYR ONE ×3 (03:50→11:00)
[2021-12-07] MEDS ORDERED: ONDANSETRON 4 MG/2 ML VIAL ONE ×2 (03:50→11:01)
[2021-12-07] MEDS ORDERED: NA CHLORIDE 0.9% 1,000 ML ONE (07:52)
[2021-12-07] MEDS ORDERED: PIPERACIL/TAZO 3.375 GM VIAL IV ONE (07:52)
[2021-12-07] MEDS ORDERED: NA CHLORIDE 0.9% 50 ML ONE (07:53)
[2021-12-07 08:29] LABS: Absolute Lymphocytes (CBC) 1.2 K/uL (0.7-4.9); Hematocrit 39.3 % (39.6-49.0); Lymphocytes % 12.1 % (15.3-44.8); MCV 76.7 fL (80-100); MPV 8.7 fL (7.6-11.3); RBC Red Blood Cell Count 5.12 M/uL (4.33-5.43)
[2021-12-07 08:49] LABS: ALT/SGPT 16 U/L (12-78); AST/SGOT 34 U/L (15-37); Albumin 2.3 g/dL (3.4-5.0); Alkaline Phosphatase 82 U/L (45-117); Bicarbonate 28 mmol/L (21-32); Bilirubin Total 0.4 mg/dL (0.2-1.0); Glomerular Filtration Rate 142 ml/min (=/>90); Glucose Level 75 mg/dL (74-106); Lipase 27 U/L (73-393); Potassium 3.2 mmol/L (3.5-5.1); Sodium Level 139 mmol/L (136-145)
[2021-12-07 08:50] LABS: BUN Blood Urea Nitrogen < 3 mg/dL (7-18)
[2021-12-07 11:17] VITALS: TEMP 99
[2021-12-07 11:35] VITALS: BP 122/93; O2SAT 99
--- OUTSIDE RECORDS SUMMARY | 2021-12-07 15:54 | XMS REPORT | Continuity of Care Document ---
:2000 Author Organization [facility] t Address [address] [place] [address] Care Team Providers Name Role Phone WILLARD CROUCH Attending Clinician Unavailable [id number] Attending Clinician Unavailable ERICA LEON Attending Clinician Unavailable Alejandra TELLEZ Attending Clinician Unavailable Miko Attending Clinician Unavailable JYOTSNA Attending Clinician Unavailable MADELYN Attending Clinician Unavailable [facility] Attending Clinician Unavailable ZACK MAN Attending Clinician Unavailable ROYA CUI Attending Clinician Unavailable ELI Attending Clinician Unavailable ANAI Attending Clinician Unavailable WILLARD CROUCH Admitting Clinician Unavailable [id number] Admitting Clinician Unavailable Alejandra TELLEZ Admitting Clinician Unavailable LETTY Admitting Clinician Unavailable KAELYN Admitting Clinician Unavailable MICHELLE GONZALEZ Admitting Clinician Unavailable Payers Payer Name Policy Type Policy Number Effective Date Expiration Date S jonh CIG CIG [id number] [facility] [id number] [facility] [id number] 2021 PLAN 00:00:00 CIGNA OON [id number] 2021 00:00:00 GENERIC-CIGNA - [id number] 2021 2021 CIGNA 00:00:00 00:00:00 [facility] [id number] [facility]-MEDICAID - [id number] MEDICAID [place]ICA[place] [id number] Problems This patient has no known problems. Allergies, Adverse Reactions, Alerts Allergy Allergy Status Severity Reaction(s) Onset Inactive Treating Comm ents Source Name Type Date Date Clinician NO KNOWN Allergy Active [facility] Medications This patient has no known medications. Vital Signs Vital Name Observation Time Observation Value Comments Source HEIGHT 2021-12-07 12:30:00 172.7 cm WEIGHT 2021-12-07 12:30:00 95.255 kg HEIGHT 2021-12-07 12:30:00 172.7 cm WEIGHT 2021-12-07 12:30:00 95.255 kg HEIGHT 2021-09-27 17:52:00 175.3 cm WEIGHT 2021-09-27 17:52:00 99.791 kg HEIGHT 2021-09-27 17:52:00 175.3 cm WEIGHT 2021-09-27 17:52:00 99.791 kg WEIGHT 2021-09-22 05:40:00 103.42 kg WEIGHT 2021-09-21 06:00:00 103.42 kg WEIGHT 2021-09-10 06:00:00 111.5 kg WEIGHT 2021-09-06 06:04:00 89.041 kg WEIGHT 2021-08-26 16:00:00 95.845 kg WEIGHT 2021-09-22 05:40:00 103.42 kg WEIGHT 2021-09-21 06:00:00 103.42 kg WEIGHT 2021-09-10 06:00:00 111.5 kg WEIGHT 2021-09-06 06:04:00 89.041 kg WEIGHT 2021-08-26 16:00:00 95.845 kg Procedures Procedure Date / Time Performed Performing Clinician [facility] BUN/CREATININE RATIO 2021-10-19 13:53:50 [facility]/EGFR Medicine Encounters Start End Encounter Admission Attending Care Care Encounter Source Date/Time Date/Time Type Type Clinicians Facility Department ID 2021-10-09 Outpatient 3 VJ CROUCH [facility] [id number] ENCHU 10:19:53 WILLARD 2021-10-08 Outpatient 3 VJ CROUCH [facility] [id number] ENCHU 16:06:37 WILLARD 2021-10-05 Outpatient 3 [id number] ENC REF [id number] ENCHU 08:52:05 2021-10-04 Outpatient 3 [id number] ENCHU REF [id number] ENCHU 08:39:39 2021-09-25 Outpatient 3 [id number] ENCSL OTH [id number] ENCSL 10:41:49 2021-09-04 Outpatient 3 [id number] ENCSL REF [id number] ENCSL 15:32:58 2021-09-04 Outpatient 3 [id number] ENCPL REF [id number] ENCPL 08:59:04 4172021-09-02 Outpatient 3 [id number] ENCPL REF [id number] ENCPL 11:35:01 4152021-09-01 Outpatient 3 [id number] ENCPL REF [id number] ENCPL 14:10:28 4142021-12-07 2021-12-07 Inpatient ER ADIO, [facility] Emergency [id number] [facility] 12:15:00 12:15:00 TITILOLA 2021-10-10 2021-10-27 Inpatient VJ ERWIN OT [id number] - ENCHU 15:00:00 13:33:00 WILLARD 2021-10-23 2021-10-23 Outpatient KEAGAN FlahertyKW [facility] [id number] [facility] 13:20:00 13:20:[address] [facility] 2021-10-19 2021-10-19 Outpatient ISMAEL GOYAL [id number] [facility] 13:28:45 14:35:41 AMADO [facility] 2021-10-19 2021-10-19 [facility] [id number] [facility] 00:00:00 00:00:00 DOUG 2021-09-27 2021-10-10 Inpatient ER ATHREYA, [facility] Emergency [id number] [facility] 17:55:00 14:32:00 SIDNEY 2021-10-10 2021-10-10 [facility] [id number] [facility] 00:00:00 00:00:00 DOUG 2021-09-28 2021-09-28 Outpatient [facility] [id number] [facility] 00:00:00 23:59:00 [facility] 2021-09-22 2021-09-27 Inpatient 3 VJ CROUCH ART [id number] [facility] 19:40:00 16:58:00 WILLARD 2021-09-27 2021-09-27 Outpatient EL KEAGAN CrouchKW [facility] [id number] [facility] 13:42:00 13:42:[address] [facility] 2021-08-25 2021-09-22 Inpatient ER ELI, [facility] [id number] [facility] 23:24:00 18:50:00 IRINA 2021-09-07 2021-09-07 Outpatient CHAPIS OSPINA [id number] [facility] 00:00:00 00:00:00 BEAR Rojasybol d 2021-09-04 2021-09-04 [place]patient [place] [id number] [facility] 00:00:00 23:59:00 [facility] Results Test Description Test Time Test Comments Results Result Comments Source COMPREHENSIVE METABOLIC PANEL 2021-12-07 14:20:15 Test Item Value Reference Range Interpretation Comme nts TOTAL PROTEIN (BEAKER) 6.0 gm/dL 6.0-8.3 Speci men slightly (test code = 770) hemolyzed ALBUMIN (BEAKER) (test code 2.7 g/dL 3.5-5.0 L Specimen slightly = 1145) hemolyzed ALKALINE PHOSPHATASE 83 U/L 40-150 (BEAKER) (test code = 346) BILIRUBIN TOTAL (BEAKER) 0.5 mg/dL 0.2-1.2 Spe cimen slightly (test code = 377) hemolyzed SODIUM (BEAKER) (test code 137 meq/L 136-145 = 381) POTASSIUM (BEAKER) (test 3.4 meq/L 3.5-5.1 L Spe cimen slightly code = 379) hemolyzed CHLORIDE (BEAKER) (test 104 meq/L 98-107 code = 382) CO2 (BEAKER) (test code = 27 meq/L 22-29 355) BLOOD UREA NITROGEN 3 mg/dL 7-21 L (BEAKER) (test code = 354) CREATININE (BEAKER) (test 0.58 mg/dL 0.57-1.25 Sp ecimen slightly code = 358) hemolyzed GLUCOSE RANDOM (BEAKER) 73 mg/dL 70-105 (test code = 652) CALCIUM (BEAKER) (test code 8.3 mg/dL 8.4-10.2 L = 697) AST (SGOT) (BEAKER) (test 45 U/L 5-34 H Sp ecimen slightly code = 353) hemolyzed ALT (SGPT) (BEAKER) (test 15 U/L 6-55 Sp ecimen slightly code = 347) hemolyzed EGFR (BEAKER) (test code = 179 mL/min/1.73 sq m ESTIMATED GFR IS NOT 1092) ACCURATE CRE ATININE CLEARANCE IN [place] EDICTING GLOMERULAR FILT RATION RATE. ESTIMATED GFR IS NOT APPLICABLE FOR DIALYSIS PATIEN TS. Filler Block Inserter Remover ID - MARIBEL [id number] 14:20:15 Test Item Value Reference Range Interpretation Comments LIPASE (BEAKER) (test code = 749) 8 U/L 8-78 Filler Block Inserter Remover ID - MARIBEL NEGRONACTIC ACID, [id number] 14:16:12 Test Item Value Reference Range Interpretation Comments LACTATE BLOOD VENOUS 1.09 mmol/L 0.50-2.20 Specime n slightly (2) (BEAKER) (test hemolyzed code = 7321) Filler Block Inserter Remover ID - MARIBEL [id number] 14:09:56 Test Item Value Reference Range Interpretation Comments PARTIAL THROMBOPLASTIN TIME 28.8 seconds 22.5-36.0 (BEAKER) (test code = 760) PROTHROMBIN [id number] 14:09:14 Test Item Value Reference Range Interpretation Comments PROTIME (BEAKER) 16.6 seconds 11.9-14.2 H (test code = 759) INR (BEAKER) (test 1.37 See_Comment [Automat ed message] code = 370) The system [employer] generated this result transmitted ref erence range: <=5.90. The reference range was not used to int erpret this result as normal/abnormal . RECOMMENDED COUMADIN/WARFARIN INR THERAPY RANGESSTANDARD DOSE: 2.0 - 3.0 Includes: PROPHYLAXIS forvenous thrombosis, systemic embolization; TREATMENT for venous thrombosis and/or pulmonary embolus.HIGH RISK: Target INR is 2.5-3.5 for patients with mechanical heart valves.CBC W/PLT COUNT & AUTO DIFFERENTIAL 2021-12-07 14:03:40 Test Item Value Reference Range Interpretation Comments WHITE BLOOD CELL COUNT (BEAKER) 12.7 K/ L 3.5-10.5 H (test code = 775) RED BLOOD CELL COUNT (BEAKER) 5.36 M/ L 4.63-6.08 (test code = 761) HEMOGLOBIN (BEAKER) (test code = 13.1 GM/DL 13.7-17.5 L 410) HEMATOCRIT (BEAKER) (test code = 43.1 % 40.1-51.0 411) MEAN CORPUSCULAR VOLUME (BEAKER) 80.4 fL 79.0-92.2 (test code = 753) MEAN CORPUSCULAR HEMOGLOBIN 24.4 pg 25.7-32.2 L (BEAKER) (test code = 751) MEAN CORPUSCULAR HEMOGLOBIN CONC 30.4 GM/DL 32.3-36.5 L (BEAKER) (test code = 752) RED CELL DISTRIBUTION WIDTH 17.0 % 11.6-14.4 H (BEAKER) (test code = 412) PLATELET COUNT (BEAKER) (test 325 K/CU MM 150-450 code = 756) MEAN PLATELET VOLUME (BEAKER) 11.2 fL 9.4-12.4 (test code = 754) NUCLEATED RED BLOOD CELLS 0 /100 WBC 0-0 (BEAKER) (test code = 413) NEUTROPHILS RELATIVE PERCENT 81 % (BEAKER) (test code = 429) LYMPHOCYTES RELATIVE PERCENT 10 % (BEAKER) (test code = 430) MONOCYTES RELATIVE PERCENT 6 % (BEAKER) (test code = 431) EOSINOPHILS RELATIVE PERCENT 2 % (BEAKER) (test code = 432) BASOPHILS RELATIVE PERCENT 1 % (BEAKER) (test code = 437) NEUTROPHILS ABSOLUTE COUNT 10.26 K/ L 1.78-5.38 H (BEAKER) (test code = 670) LYMPHOCYTES ABSOLUTE COUNT 1.26 K/ L 1.32-3.57 L (BEAKER) (test code = 414) MONOCYTES ABSOLUTE COUNT (BEAKER) 0.74 K/ L 0.30-0.82 (test code = 415) EOSINOPHILS ABSOLUTE COUNT 0.31 K/ L 0.04-0.54 (BEAKER) (test code = 416) BASOPHILS ABSOLUTE COUNT (BEAKER) 0.07 K/ L 0.01-0.08 (test code = 417) IMMATURE GRANULOCYTES-RELATIVE 1 % 0-1 PERCENT (BEAKER) (test code = 2801) POCT-GLUCOSE [id number] 13:55:45 Test Item Value Reference Range Interpretation Comments POC-GLUCOSE METER 86 mg/dL 70-110 : TESTED A T [facility] 6720 (BEAKER) (test code = [place] [facility], 1538) 34876: Filler Block Inserter Remover/Techni dakota ID = [id number] for Jose oHdges [employer] CULTURE + SMEAR (NON-SPUTUM)2021-11-16 10:41:32 Test Item Value Reference Range Interpretation Comments CULTURE (BEAKER) (test No acid-fast bacilli code = 1095) isolated in 42 days AFB SMEAR (BEAKER) No acid fast bacilli (test code = 994) seen FUNGUS CULTURE + [id number] 17:16:53 Test Item Value Reference Range Interpretation Comments CULTURE (BEAKER) (test No fungus isolated in code = 1095) 28 days FUNGUS SMEAR (BEAKER) No fungi seen (test code = 1406) - CT ABDOMEN W W/O [id number] 15:32:00 [facility] 2000 Sex: M FAX: Willard Vaughn Jr [phone] [place]: St: REG Name: TEMO OVALLE : 2000 Age/S: 21/M [address] Unit: [id number] Loc: [place] [address] Phys: Willard Crouch Jr, MD Acct: [id number] Dis Date: Status: REG CLI PHONE #: [phone] Exam Date: 10/23/2021 6267 FAX #: [phone] Reason: ABDOMINAL ABSCESSES EXAMS: CPT CODE: [id number] CT ABDOMEN W W/O CONTRAST 09576 EXAMINATION: - CT ABDOMEN W W/O CONTRAST INDICATION: ABDOMINAL ABSCESSES COMPARISON: 09/27/2021 LOCATION: C3 TECHNIQUE: CT abdomen and pelvis was performed without and with IV contrast. Contrasted scans performed in the venous phase(s) of enhancement. Sagittal and coronal reformatted images were created. This exam was performed according to our departmental dose optimization program, which includes automated exposure control, adjustment of the mA and/or kV according to patient size, and/or use of iterative reconstruction technique. FINDINGS: Borderline mild hepatic steatosis with otherwise unremarkable liver. Mild splenomegaly with calcified granulomas. Gallbladder, adrenal glands, and kidneys are unremarkable. Air-fluid collections are again seen in region of pancreatic tail tracking down the left paracolic gutter. A reference component along the splenic hilum measures 5.3 x 2.8 cm, previously 7.8 x 3.6 cm at similar level. No definite finding of pancreatic necrosis. An additional air-fluid collection is seen in the right paracolic gutter which has decreased since prior exam, now measuring 9.7 x 3.6 cm, previously 12.7 x 7.0 cm at similar level. Additional fluid collection within the pelvis measures approximately 3.0 x 3.9 cmand tracks down into the pelvis, overall substantially decreased from prior although more focal in appearance on the current exam. Interval placement of drains terminating in region of pancreatic neck/body and within the left pelvis. No evidence of intestinal obstruction. Normal caliber abdominal aorta. PAGE 1 Signed Report (CONTINUED) FAX: Willard Vaughn Jr [phone] [place]: St: REG -- Name: VANGIE OVALLE [facility] : 2000 Age/S: 21/M [address] Unit: [id number] Loc: [place] [address] Phys: Willard Crouch Jr, MD Acct: CD [id number] Dis Date: Status: REG CLI PHONE #: [phone] Exam Date: 10/23/2021 9128 FAX #: [phone] Reason: ABDOMINAL ABSCESSES EXAMS: CPT CODE: [id number] CT ABDOMEN W W/O CONTRAST 26515 <Continued> Imaged lower chest demonstrates mild bibasilar atelectasis. No acute osseous abnormality identified. IMPRESSION: Following interval drain placements, overall quantity of air-fluid collections has partially improved. at 1532 Reported and signedby: Sabas Grey MD CC: Willard Crouch Jr Technologist: DORENE WHITTAKER, RT(R,CT); BEATRIZ CLINTON Trntxrd Dt/Tm: 10/23/2021 (1532) [email or web address] Orig Print D/T: S: 10/23/2021 (1536 PAGE 2 Signed Report POCT-GLUCOSE [id number] 12:03:00 Test Item Value Reference Range Interpretation Comments POC-GLUCOSE METER 147 mg/dL 70-110 H : TESTED A T [facility] 6720 ([employer]) (test code = R[employer] [facility], 1538) 41338: Filler Block Inserter Remover/Techni dakota ID = [id number] for Roberto Carlos Singh POCT-GLUCOSE [id number] 07:25:56 Test Item Value Reference Range Interpretation Comments POC-GLUCOSE METER 108 mg/dL 70-110 : TESTED A T [facility] 6720 ([employer]) (test code = [facility], 1538) 64176: Filler Block Inserter Remover/Techni dakota ID = [id number] for Saritha Castro [id number] 06:30:28 Test Item Value Reference Range Interpretation Comments PHOSPHORUS (BEAKER) (test code = 3.1 mg/dL 2.3-4.7 604) Filler Block Inserter Remover ID - DBHEPATIC FUNCTION [id number] 06:30:28 Test Item Value Reference Range Interpretation Comments TOTAL PROTEIN (BEAKER) (test code = 5.8 gm/dL 6.0-8.3 L 770) ALBUMIN (BEAKER) (test code = 1145) 2.8 g/dL 3.5-5.0 L BILIRUBIN TOTAL (BEAKER) (test code 0.4 mg/dL 0.2-1.2 = 377) BILIRUBIN DIRECT (BEAKER) (test 0.2 mg/dL 0.1-0.5 code = 706) ALKALINE PHOSPHATASE (BEAKER) (test 75 U/L 40-150 code = 346) AST (SGOT) (BEAKER) (test code = 12 U/L 5-34 353) ALT (SGPT) (BEAKER) (test code = 9 U/L 6-55 347) Filler Block Inserter Remover ID - DBBASIC METABOLIC [id number] 06:30:27 Test Item Value Reference Range Interpretation Comments SODIUM (BEAKER) 134 meq/L 136-145 L (test code = 381) POTASSIUM (BEAKER) 3.8 meq/L 3.5-5.1 (test code = 379) CHLORIDE (BEAKER) 98 meq/L 98-107 (test code = 382) CO2 (BEAKER) (test 27 meq/L 22-29 code = 355) BLOOD UREA NITROGEN 9 mg/dL 7-21 (BEAKER) (test code = 354) CREATININE (BEAKER) 0.48 mg/dL 0.57-1.25 L (test code = 358) GLUCOSE RANDOM 118 mg/dL 70-105 H (BEAKER) (test code = 652) CALCIUM (BEAKER) 8.9 mg/dL 8.4-10.2 (test code = 697) EGFR (BEAKER) (test 222 mL/min/1.73 ESTIM ATED GFR IS code = 1092) sq m NOT ACCURATE CREATININE CLEARANCE IN PREDICTING GLOMERULAR FILTRATION RATE . ESTIMATED GFR I S NOT APPLICABLE FOR DIALYSIS PATIEN TS. Filler Block Inserter Remover ID - [id number] 06:30:27 Test Item Value Reference Range Interpretation Comments MAGNESIUM (BEAKER) (test code = 1.6 mg/dL 1.6-2.6 627) Filler Block Inserter Remover ID - DBCBC W/PLT COUNT & AUTO [id number] 06:18:45 Test Item Value Reference Range Interpretation Comments WHITE BLOOD CELL COUNT (BEAKER) 9.4 K/ L 3.5-10.5 (test code = 775) RED BLOOD CELL COUNT (BEAKER) 3.64 M/ L 4.63-6.08 L (test code = 761) HEMOGLOBIN (BEAKER) (test code = 8.9 GM/DL 13.7-17.5 L 410) HEMATOCRIT (BEAKER) (test code = 29.6 % 40.1-51.0 L 411) MEAN CORPUSCULAR VOLUME (BEAKER) 81.3 fL 79.0-92.2 (test code = 753) MEAN CORPUSCULAR HEMOGLOBIN 24.5 pg 25.7-32.2 L (BEAKER) (test code = 751) MEAN CORPUSCULAR HEMOGLOBIN CONC 30.1 GM/DL 32.3-36.5 L (BEAKER) (test code = 752) RED CELL DISTRIBUTION WIDTH 21.3 % 11.6-14.4 H (BEAKER) (test code = 412) PLATELET COUNT (BEAKER) (test 356 K/CU MM 150-450 code = 756) MEAN PLATELET VOLUME (BEAKER) 9.4 fL 9.4-12.4 (test code = 754) NUCLEATED RED BLOOD CELLS 0 /100 WBC 0-0 (BEAKER) (test code = 413) NEUTROPHILS RELATIVE PERCENT 69 % (BEAKER) (test code = 429) LYMPHOCYTES RELATIVE PERCENT 20 % (BEAKER) (test code = 430) MONOCYTES RELATIVE PERCENT 5 % (BEAKER) (test code = 431) EOSINOPHILS RELATIVE PERCENT 0 % (BEAKER) (test code = 432) BASOPHILS RELATIVE PERCENT 0 % (BEAKER) (test code = 437) NEUTROPHILS ABSOLUTE COUNT 6.53 K/ L 1.78-5.38 H (BEAKER) (test code = 670) LYMPHOCYTES ABSOLUTE COUNT 1.90 K/ L 1.32-3.57 (BEAKER) (test code = 414) MONOCYTES ABSOLUTE COUNT (BEAKER) 0.43 K/ L 0.30-0.82 (test code = 415) EOSINOPHILS ABSOLUTE COUNT 0.04 K/ L 0.04-0.54 (BEAKER) (test code = 416) BASOPHILS ABSOLUTE COUNT (BEAKER) 0.02 K/ L 0.01-0.08 (test code = 417) IMMATURE GRANULOCYTES-RELATIVE 5 % 0-1 H PERCENT (BEAKER) (test code = 2801) POCT-GLUCOSE [id number] 22:04:31 Test Item Value Reference Range Interpretation Comments POC-GLUCOSE METER 148 mg/dL 70-110 H : TESTED A T [facility] 6720 (BEAKER) (test code = [facility] [place], 1538) [address]26[address]: Filler Block Inserter Remover/Techni dakota ID = [id number] for JOANN RANDOLPH POCT-GLUCOSE [id number] 17:21:06 Test Item Value Reference Range Interpretation Comments POC-GLUCOSE METER 231 mg/dL 70-110 H : TESTED A T [facility] 6720 (BEAKER) (test code = [facility] [employer] [facility], 1538) 19776: Filler Block Inserter Remover/Techni dakota ID = [id number] for ERNST FRANCOIS ANAEROBIC [id number] 13:55:46 Test Item Value Reference Range Interpretation Comments CULTURE (BEAKER) (test No anaerobes isolated code = 1095) BASIC METABOLIC [id number] 12:01:25 Test Item Value Reference Range Interpretation Comments SODIUM (BEAKER) 132 meq/L 136-145 L (test code = 381) POTASSIUM (BEAKER) 4.0 meq/L 3.5-5.1 (test code = 379) CHLORIDE (BEAKER) 96 meq/L 98-107 L (test code = 382) CO2 (BEAKER) (test 25 meq/L 22-29 code = 355) BLOOD UREA NITROGEN 9 mg/dL 7-21 (BEAKER) (test code = 354) CREATININE (BEAKER) 0.47 mg/dL 0.57-1.25 L (test code = 358) GLUCOSE RANDOM 102 mg/dL 70-105 (BEAKER) (test code = 652) CALCIUM (BEAKER) 8.4 mg/dL 8.4-10.2 (test code = 697) EGFR (BEAKER) (test 228 mL/min/1.73 ESTIM ATED GFR IS code = 1092) sq m NOT ACCURATE CREATININE CLEARANCE IN PREDICTING GLOMERULAR FILTRATION RATE . ESTIMATED GFR I S NOT APPLICABLE FOR DIALYSIS PATIEN TS. Filler Block Inserter Remover ID - ALVINA MHEPATIC FUNCTION [id number] 12:01:25 Test Item Value Reference Range Interpretation Comments TOTAL PROTEIN (BEAKER) (test code = 5.2 gm/dL 6.0-8.3 L 770) ALBUMIN (BEAKER) (test code = 1145) 2.5 g/dL 3.5-5.0 L BILIRUBIN TOTAL (BEAKER) (test code 0.7 mg/dL 0.2-1.2 = 377) BILIRUBIN DIRECT (BEAKER) (test 0.4 mg/dL 0.1-0.5 code = 706) ALKALINE PHOSPHATASE (BEAKER) (test 77 U/L 40-150 code = 346) AST (SGOT) (BEAKER) (test code = 13 U/L 5-34 353) ALT (SGPT) (BEAKER) (test code = 9 U/L 6-55 347) Filler Block Inserter Remover ID - ALVINA MOperator ID - ALVINA [id number] 12:01:24 Test Item Value Reference Range Interpretation Comments PHOSPHORUS (BEAKER) (test code = 3.8 mg/dL 2.3-4.7 604) Filler Block Inserter Remover ID - ALVINA [id number] 12:01:19 Test Item Value Reference Range Interpretation Comments MAGNESIUM (BEAKER) (test code = 1.5 mg/dL 1.6-2.6 L 627) Filler Block Inserter Remover ID - ALVINA MPOCT-GLUCOSE [id number] 11:54:19 Test Item Value Reference Range Interpretation Comments POC-GLUCOSE METER 110 mg/dL 70-110 : TESTED A T [facility] 6720 (BEAKER) (test code = [place], 1538) 18275: Filler Block Inserter Remover/Techni dakota ID = [id number] for ERNST FRANCOIS CBC W/PLT COUNT & AUTO [id number] 11:25:49 Test Item Value Reference Range Interpretation Comments WHITE BLOOD CELL COUNT (BEAKER) 22.6 K/ L 3.5-10.5 H (test code = 775) RED BLOOD CELL COUNT (BEAKER) 3.55 M/ L 4.63-6.08 L (test code = 761) HEMOGLOBIN (BEAKER) (test code = 8.7 GM/DL 13.7-17.5 L 410) HEMATOCRIT (BEAKER) (test code = 29.1 % 40.1-51.0 L 411) MEAN CORPUSCULAR VOLUME (BEAKER) 82.0 fL 79.0-92.2 (test code = 753) MEAN CORPUSCULAR HEMOGLOBIN 24.5 pg 25.7-32.2 L (BEAKER) (test code = 751) MEAN CORPUSCULAR HEMOGLOBIN CONC 29.9 GM/DL 32.3-36.5 L (BEAKER) (test code = 752) RED CELL DISTRIBUTION WIDTH 21.8 % 11.6-14.4 H (BEAKER) (test code = 412) PLATELET COUNT (BEAKER) (test 362 K/CU MM 150-450 code = 756) MEAN PLATELET VOLUME (BEAKER) 9.2 fL 9.4-12.4 L (test code = 754) NUCLEATED RED BLOOD CELLS 0 /100 WBC 0-0 (BEAKER) (test code = 413) NEUTROPHILS RELATIVE PERCENT 88 % (BEAKER) (test code = 429) LYMPHOCYTES RELATIVE PERCENT 5 % (BEAKER) (test code = 430) MONOCYTES RELATIVE PERCENT 3 % (BEAKER) (test code = 431) EOSINOPHILS RELATIVE PERCENT 0 % (BEAKER) (test code = 432) BASOPHILS RELATIVE PERCENT 0 % (BEAKER) (test code = 437) NEUTROPHILS ABSOLUTE COUNT 19.92 K/ L 1.78-5.38 H (BEAKER) (test code = 670) LYMPHOCYTES ABSOLUTE COUNT 1.03 K/ L 1.32-3.57 L (BEAKER) (test code = 414) MONOCYTES ABSOLUTE COUNT (BEAKER) 0.67 K/ L 0.30-0.82 (test code = 415) EOSINOPHILS ABSOLUTE COUNT 0.03 K/ L 0.04-0.54 L (BEAKER) (test code = 416) BASOPHILS ABSOLUTE COUNT (BEAKER) 0.06 K/ L 0.01-0.08 (test code = 417) IMMATURE GRANULOCYTES-RELATIVE 4 % 0-1 H PERCENT (BEAKER) (test code = 2801) POCT-GLUCOSE [id number] 09:39:11 Test Item Value Reference Range Interpretation Comments POC-GLUCOSE METER 87 mg/dL 70-110 : TESTED A T [facility] [address] ([place]) (test code = [place]NA CHARLES [place], 1538) [address]: Filler Block Inserter Remover/Techni dakota ID = [id number] for DELMAR IYER SARS-COV2/RT-PCR ([facility])2021-10-09 04:10:06 Test Item Value Reference Range Interpretation Comments SARS-COV2/RT-PCR (test Negative Not Detected, Negative, code = 6448234) See external report for linked test SARS-COV-2 PERFORMING LAB [facility] SHAUNA (test code = [id number]) Negative result for this test determines that SARS-CoV-2 RNA was not present in the specimen above the Limit of Detection (LOD). However, Negative results do not preclude SARS-CoV-2 infection and should not be used as the sole basis for treatment or patient management decisions. Negative results mustbe combined with clinical observations, patient history, and epidemiological information. A false negative result may occur if a specimen is improperly collected, transported or handled. A false negative result should be considered if patient's recent exposures or clinical presentation indicate that COVID-19 (SARS-CoV-2) is likely and diagnostic tests for other causes of illness are negative. Re-testing should be considered in cases of suspected false negatives.The limit of detection for this assay is 800 copies/mL.This SARS CoV-2 test is a real-time RT-PCR test intended for the qualitative detection of nucleic acid from SARS-CoV-2 in a nasopharyngeal swab specimen collected from individuals susp ected of COVID-19 by their healthcare provider.This test has not been Food and Drug Administration (FDA) cleared or approved. This is a modified version of an approved Emergency Use Authorization (EUA) and is in the process of review by the FDA. Once authorized by the FDA, the issued EUA will be effective until the declaration that circumstances exist justifying the authorization of the emergency use of in vitro diagnostic tests for detection and/or diagnosis of COVID-19 is terminated under Section 564(b)(2) of the Act or the EUA is revoked under Section 564(g) of the Act.Fact Sheet for Healthcare Providers:[email or web address] Sheet for Healthcare Patients:https://www.[email or web address]/sites/default/files/product/ documents/Rldu_Lmdxg_Jvctsntl_Rmpe_BYWZ-YrR-2.pdfPerforming Laboratory:[facility] [facility].[place], [place] [address]WHYO-ZUVLQSV METER 2021-10-08 20:41:51 Test Item Value Reference Range Interpretation Comments POC-GLUCOSE METER 102 mg/dL 70-110 : Notified RN/MD: (GENEVA) (test code = TESTED AT [place] [id number] 1538) [facility] [place], [address]: Filler Block Inserter Remover/Techni dakota ID = [id number] for HEATH GRANDE POCT-GLUCOSE [id number] 17:43:36 Test Item Value Reference Range Interpretation Comments POC-GLUCOSE METER 93 mg/dL 70-110 : TESTED A T [facility] 6720 (BEAKER) (test code = [facility], 1538) [address]: Filler Block Inserter Remover/Techni dakota ID = [id number] for Bhag jewel, Rajashree POCT-GLUCOSE [id number] 12:09:22 Test Item Value Reference Range Interpretation Comments POC-GLUCOSE METER 93 mg/dL 70-110 : TESTED A T [facility] 6720 (BEAKER) (test code = [facility], 1538) [address]: Filler Block Inserter Remover/Techni dakota ID = [id number] for Bhag jewel, Rajashree POCT-GLUCOSE [id number] 08:51:46 Test Item Value Reference Range Interpretation Comments POC-GLUCOSE METER 95 mg/dL 70-110 : TESTED A T [facility] 6720 (BEAKER) (test code = [facility], 1538) [address]: Filler Block Inserter Remover/Techni dakota ID = [id number] for Bhag jewel, Rajashree [id number] 05:23:25 Test Item Value Reference Range Interpretation Comments PHOSPHORUS (BEAKER) (test code = 3.1 mg/dL 2.3-4.7 604) Filler Block Inserter Remover ID - PIAYA LHEPATIC FUNCTION [id number] 05:23:25 Test Item Value Reference Range Interpretation Comments TOTAL PROTEIN (BEAKER) (test code = 5.2 gm/dL 6.0-8.3 L 770) ALBUMIN (BEAKER) (test code = 1145) 2.5 g/dL 3.5-5.0 L BILIRUBIN TOTAL (BEAKER) (test code 0.3 mg/dL 0.2-1.2 = 377) BILIRUBIN DIRECT (BEAKER) (test 0.2 mg/dL 0.1-0.5 code = 706) ALKALINE PHOSPHATASE (BEAKER) (test 59 U/L 40-150 code = 346) AST (SGOT) (BEAKER) (test code = 12 U/L 5-34 353) ALT (SGPT) (BEAKER) (test code = 11 U/L 6-55 347) Filler Block Inserter Remover ID - MARIBEL LBASIC METABOLIC [id number] 05:23:24 Test Item Value Reference Range Interpretation Comments SODIUM (BEAKER) 137 meq/L 136-145 (test code = 381) POTASSIUM (BEAKER) 3.6 meq/L 3.5-5.1 (test code = 379) CHLORIDE (BEAKER) 101 meq/L 98-107 (test code = 382) CO2 (BEAKER) (test 26 meq/L 22-29 code = 355) BLOOD UREA NITROGEN 10 mg/dL 7-21 (BEAKER) (test code = 354) CREATININE (BEAKER) 0.46 mg/dL 0.57-1.25 L (test code = 358) GLUCOSE RANDOM 110 mg/dL 70-105 H (BEAKER) (test code = 652) CALCIUM (BEAKER) 8.5 mg/dL 8.4-10.2 (test code = 697) EGFR (BEAKER) (test 233 mL/min/1.73 ESTIM ATED GFR IS code = 1092) sq m NOT ACCURATE CREATININE CLEARANCE IN PREDICTING GLOMERULAR FILTRATION RATE . ESTIMATED GFR I S NOT APPLICABLE FOR DIALYSIS PATIEN TS. Filler Block Inserter Remover ID - MARIBEL [id number] 05:23:24 Test Item Value Reference Range Interpretation Comments MAGNESIUM (BEAKER) (test code = 1.4 mg/dL 1.6-2.6 L 627) Filler Block Inserter Remover BEATRIZ LÓPEZ LCBC W/PLT COUNT & AUTO [id number] 04:49:36 Test Item Value Reference Range Interpretation Comments WHITE BLOOD CELL COUNT (BEAKER) 16.3 K/ L 3.5-10.5 H (test code = 775) RED BLOOD CELL COUNT (BEAKER) 3.54 M/ L 4.63-6.08 L (test code = 761) HEMOGLOBIN (BEAKER) (test code = 8.7 GM/DL 13.7-17.5 L 410) HEMATOCRIT (BEAKER) (test code = 29.1 % 40.1-51.0 L 411) MEAN CORPUSCULAR VOLUME (BEAKER) 82.2 fL 79.0-92.2 (test code = 753) MEAN CORPUSCULAR HEMOGLOBIN 24.6 pg 25.7-32.2 L (BEAKER) (test code = 751) MEAN CORPUSCULAR HEMOGLOBIN CONC 29.9 GM/DL 32.3-36.5 L (BEAKER) (test code = 752) RED CELL DISTRIBUTION WIDTH 21.8 % 11.6-14.4 H (BEAKER) (test code = 412) PLATELET COUNT (BEAKER) (test 349 K/CU MM 150-450 code = 756) MEAN PLATELET VOLUME (BEAKER) 9.4 fL 9.4-12.4 (test code = 754) NUCLEATED RED BLOOD CELLS 0 /100 WBC 0-0 (BEAKER) (test code = 413) NEUTROPHILS RELATIVE PERCENT 75 % (BEAKER) (test code = 429) LYMPHOCYTES RELATIVE PERCENT 15 % (BEAKER) (test code = 430) MONOCYTES RELATIVE PERCENT 5 % (BEAKER) (test code = 431) EOSINOPHILS RELATIVE PERCENT 0 % (BEAKER) (test code = 432) BASOPHILS RELATIVE PERCENT 0 % (BEAKER) (test code = 437) NEUTROPHILS ABSOLUTE COUNT 12.29 K/ L 1.78-5.38 H (BEAKER) (test code = 670) LYMPHOCYTES ABSOLUTE COUNT 2.45 K/ L 1.32-3.57 (BEAKER) (test code = 414) MONOCYTES ABSOLUTE COUNT (BEAKER) 0.83 K/ L 0.30-0.82 H (test code = 415) EOSINOPHILS ABSOLUTE COUNT 0.05 K/ L 0.04-0.54 (BEAKER) (test code = 416) BASOPHILS ABSOLUTE COUNT (BEAKER) 0.05 K/ L 0.01-0.08 (test code = 417) IMMATURE GRANULOCYTES-RELATIVE 4 % 0-1 H PERCENT (BEAKER) (test code = 2801) POCT-GLUCOSE [id number] 21:40:30 Test Item Value Reference Range Interpretation Comments POC-GLUCOSE METER 135 mg/dL 70-110 H : TESTED A T [facility] 6720 (BEAKER) (test code = [facility], 1538) [address]: Filler Block Inserter Remover/Techni dakota ID = [id number] for MARTINE VASQUEZ POCT-GLUCOSE [id number] 16:34:48 Test Item Value Reference Range Interpretation Comments POC-GLUCOSE METER 177 mg/dL 70-110 H : TESTED A T [facility] 6720 (BEAKER) (test code = [facility], 1538) [address]: Filler Block Inserter Remover/Techni dakota ID = [id number] for QUEEN HONEYCUTT POCT-GLUCOSE [id number] 11:09:04 Test Item Value Reference Range Interpretation Comments POC-GLUCOSE METER 156 mg/dL 70-110 H : TESTED A T [facility] 6720 (BEAKER) (test code = [facility], 1538) [address]: Filler Block Inserter Remover/Techni dakota ID = [id number] for QUEEN HONEYCUTT POCT-GLUCOSE [id number] 07:50:39 Test Item Value Reference Range Interpretation Comments POC-GLUCOSE METER 69 mg/dL 70-110 L : TESTED A T [facility] 6720 (BEAKER) (test code = [facility], 1538) [address]: Filler Block Inserter Remover/Techni dakota ID = [id number] for QUEEN JACOBSEN HEPATIC FUNCTION [id number] 04:46:43 Test Item Value Reference Range Interpretation Comments TOTAL PROTEIN (BEAKER) (test code = 5.2 gm/dL 6.0-8.3 L 770) ALBUMIN (BEAKER) (test code = 1145) 2.5 g/dL 3.5-5.0 L BILIRUBIN TOTAL (BEAKER) (test code 0.3 mg/dL 0.2-1.2 = 377) BILIRUBIN DIRECT (BEAKER) (test 0.1 mg/dL 0.1-0.5 code = 706) ALKALINE PHOSPHATASE (BEAKER) (test 60 U/L 40-150 code = 346) AST (SGOT) (BEAKER) (test code = 14 U/L 5-34 353) ALT (SGPT) (BEAKER) (test code = 11 U/L 6-55 347) Filler Block Inserter Remover ID - ALVINA [id number] 04:46:42 Test Item Value Reference Range Interpretation Comments MAGNESIUM (BEAKER) (test code = 1.4 mg/dL 1.6-2.6 L 627) Filler Block Inserter Remover ID - ALVINA [id number] 04:46:42 Test Item Value Reference Range Interpretation Comments PHOSPHORUS (BEAKER) (test code = 2.6 mg/dL 2.3-4.7 604) Filler Block Inserter Remover ID - ALVINA MBASIC METABOLIC [id number] 04:46:41 Test Item Value Reference Range Interpretation Comments SODIUM (BEAKER) 135 meq/L 136-145 L (test code = 381) POTASSIUM (BEAKER) 3.6 meq/L 3.5-5.1 (test code = 379) CHLORIDE (BEAKER) 99 meq/L 98-107 (test code = 382) CO2 (BEAKER) (test 25 meq/L 22-29 code = 355) BLOOD UREA NITROGEN 8 mg/dL 7-21 (BEAKER) (test code = 354) CREATININE (BEAKER) 0.45 mg/dL 0.57-1.25 L (test code = 358) GLUCOSE RANDOM 128 mg/dL 70-105 H (BEAKER) (test code = 652) CALCIUM (BEAKER) 8.3 mg/dL 8.4-10.2 L (test code = 697) EGFR (BEAKER) (test 239 mL/min/1.73 ESTIM ATED GFR IS code = 1092) sq m NOT ACCURATE CREATININE CLEARANCE IN PREDICTING GLOMERULAR FILTRATION RATE . ESTIMATED GFR I S NOT APPLICABLE FOR DIALYSIS PATIEN TS. Filler Block Inserter Remover ID - ALVINA MPOCT-GLUCOSE [id number] 21:32:38 Test Item Value Reference Range Interpretation Comments POC-GLUCOSE METER 175 mg/dL 70-110 H : TESTED A T [facility] 6720 (BEAKER) ([facility] [place] [facility], 1538) [address]: Filler Block Inserter Remover/Techni dakota ID = [id number] for NG O, BRIGIDA POCT-GLUCOSE [id number] 16:48:18 Test Item Value Reference Range Interpretation Comments POC-GLUCOSE METER 217 mg/dL 70-110 H : TESTED A T [facility] 6720 (BEAKER) (test code [facility], = 1538) [address]: Filler Block Inserter Remover/Techni dakota ID = [id number] for Mercy Peña POCT-GLUCOSE [id number] 12:45:58 Test Item Value Reference Range Interpretation Comments POC-GLUCOSE METER 158 mg/dL 70-110 H : [facility] (BEAKER) (test code [facility], = 1538) [address]: Filler Block Inserter Remover/Techni dakota ID = [id number] for Mercy Peña HEPATIC FUNCTION [id number] 06:44:11 Test Item Value Reference Range Interpretation Comments TOTAL PROTEIN (BEAKER) (test code = 5.0 gm/dL 6.0-8.3 L 770) ALBUMIN (BEAKER) (test code = 1145) 2.4 g/dL 3.5-5.0 L BILIRUBIN TOTAL (BEAKER) (test code 0.2 mg/dL 0.2-1.2 = 377) BILIRUBIN DIRECT (BEAKER) (test 0.2 mg/dL 0.1-0.5 code = 706) ALKALINE PHOSPHATASE (BEAKER) (test 52 U/L 40-150 code = 346) AST (SGOT) (BEAKER) (test code = 11 U/L 5-34 353) ALT (SGPT) (BEAKER) (test code = 11 U/L 6-55 347) Filler Block Inserter Remover ID - ALVINA [id number] 06:44:10 Test Item Value Reference Range Interpretation Comments PHOSPHORUS (BEAKER) (test code = 2.4 mg/dL 2.3-4.7 604) Filler Block Inserter Remover ID - ALVINA MBASIC METABOLIC [id number] 06:44:09 Test Item Value Reference Range Interpretation Comments SODIUM (BEAKER) 137 meq/L 136-145 (test code = 381) POTASSIUM (BEAKER) 3.7 meq/L 3.5-5.1 (test code = 379) CHLORIDE (BEAKER) 99 meq/L 98-107 (test code = 382) CO2 (BEAKER) (test 29 meq/L 22-29 code = 355) BLOOD UREA NITROGEN 10 mg/dL 7-21 (BEAKER) (test code = 354) CREATININE (BEAKER) 0.43 mg/dL 0.57-1.25 L (test code = 358) GLUCOSE RANDOM 102 mg/dL 70-105 (BEAKER) (test code = 652) CALCIUM (BEAKER) 8.2 mg/dL 8.4-10.2 L (test code = 697) EGFR (BEAKER) (test 252 mL/min/1.73 ESTIM ATED GFR IS code = 1092) sq m NOT ACCURATE CREATININE CLEARANCE IN PREDICTING GLOMERULAR FILTRATION RATE . ESTIMATED GFR I S NOT APPLICABLE FOR DIALYSIS PATIEN TS. Filler Block Inserter Remover ID - ALVINA [id number] 06:44:09 Test Item Value Reference Range Interpretation Comments MAGNESIUM (BEAKER) (test code = 1.5 mg/dL 1.6-2.6 L 627) Filler Block Inserter Remover ID - ALVINA MCBC W/PLT COUNT & AUTO [id number] 06:09:40 Test Item Value Reference Range Interpretation Comments WHITE BLOOD CELL COUNT (BEAKER) 14.1 K/ L 3.5-10.5 H (test code = 775) RED BLOOD CELL COUNT (BEAKER) 3.69 M/ L 4.63-6.08 L (test code = 761) HEMOGLOBIN (BEAKER) (test code = 8.8 GM/DL 13.7-17.5 L 410) HEMATOCRIT (BEAKER) (test code = 29.7 % 40.1-51.0 L 411) MEAN CORPUSCULAR VOLUME (BEAKER) 80.5 fL 79.0-92.2 (test code = 753) MEAN CORPUSCULAR HEMOGLOBIN 23.8 pg 25.7-32.2 L (BEAKER) (test code = 751) MEAN CORPUSCULAR HEMOGLOBIN CONC 29.6 GM/DL 32.3-36.5 L (BEAKER) (test code = 752) RED CELL DISTRIBUTION WIDTH 21.2 % 11.6-14.4 H (BEAKER) (test code = 412) PLATELET COUNT (BEAKER) (test 320 K/CU MM 150-450 code = 756) MEAN PLATELET VOLUME (BEAKER) 9.5 fL 9.4-12.4 (test code = 754) NUCLEATED RED BLOOD CELLS 0 /100 WBC 0-0 (BEAKER) (test code = 413) NEUTROPHILS RELATIVE PERCENT 76 % (BEAKER) (test code = 429) LYMPHOCYTES RELATIVE PERCENT 14 % (BEAKER) (test code = 430) MONOCYTES RELATIVE PERCENT 6 % (BEAKER) (test code = 431) EOSINOPHILS RELATIVE PERCENT 0 % (BEAKER) (test code = 432) BASOPHILS RELATIVE PERCENT 0 % (BEAKER) (test code = 437) NEUTROPHILS ABSOLUTE COUNT 10.74 K/ L 1.78-5.38 H (BEAKER) (test code = 670) LYMPHOCYTES ABSOLUTE COUNT 1.99 K/ L 1.32-3.57 (BEAKER) (test code = 414) MONOCYTES ABSOLUTE COUNT (BEAKER) 0.81 K/ L 0.30-0.82 (test code = 415) EOSINOPHILS ABSOLUTE COUNT 0.03 K/ L 0.04-0.54 L (BEAKER) (test code = 416) BASOPHILS ABSOLUTE COUNT (BEAKER) 0.02 K/ L 0.01-0.08 (test code = 417) IMMATURE GRANULOCYTES-RELATIVE 4 % 0-1 H PERCENT (BEAKER) (test code = 2801) BLOOD [id number] 23:00:53 Test Item Value Reference Range Interpretation Comments CULTURE (BEAKER) (test No growth in 5 days code = 1095) The specimen volume collected for this blood culture was below the optimum (10 mL per bottle or 20 mL total). Use of lower volumes may adversely affect recovery and/or detection times of some organisms.BLOOD [id number] 23:00:53 Test Item Value Reference Range Interpretation Comments CULTURE (BEAKER) (test No growth in 5 days code = 1095) POCT-GLUCOSE [id number] 21:19:41 Test Item Value Reference Range Interpretation Comments POC-GLUCOSE METER 154 mg/dL 70-110 H : TESTED A T [facility] 6720 (BEAKER) (test code = [facility], 153) [address]: Filler Block Inserter Remover/Techni dakota ID = [id number] for Ok afor (contract), Chi nenye POCT-GLUCOSE [id number] 16:32:34 Test Item Value Reference Range Interpretation Comments POC-GLUCOSE METER 168 mg/dL 70-110 H : TESTED A T [facility] 6720 (BEAKER) (test code = [facility], 1538) [address]: Filler Block Inserter Remover/Techni dakota ID = [id number] for [place] LLIS, ERNST POCT-GLUCOSE [id number] 11:36:04 Test Item Value Reference Range Interpretation Comments POC-GLUCOSE METER 120 mg/dL 70-110 H : TESTED A T [facility] 6720 (GENEVA) (test code = [place], 1538) [address]: Filler Block Inserter Remover/Techni dakota ID = [id number] for ERNST FRANCOIS SARS-COV2/RT-PCR ([facility])2021-10-05 10:25:30 Test Item Value Reference Range Interpretation Comments SARS-COV2/RT-PCR (test Negative Not Detected, Negative, code = 2943428) See external report for linked test SARS-COV-2 PERFORMING LAB [facility] SHAUNA (test code = 0477652) Negative result for this test determines that SARS-CoV-2 RNA was not present in the specimen above the Limit of Detection (LOD). However, Negative results do not preclude SARS-CoV-2 infection and should not be used as the sole basis for treatment or patient management decisions. Negative results mustbe combined with clinical observations, patient history, and epidemiological information. A false negative result may occur if a specimen is improperly collected, transported or handled. A false negative result should be considered if patient's recent exposures or clinical presentation indicate that COVID-19 (SARS-CoV-2) is likely and diagnostic tests for other causes of illness are negative. Re-testing should be considered in cases of suspected false negatives.The limit of detection for this assay is 800 copies/mL.This SARS CoV-2 test is a real-time RT-PCR test intended for the qualitative detection of nucleic acid from SARS-CoV-2 in a nasopharyngeal swab specimen collected from individuals susp ected of COVID-19 by their healthcare provider.This test has not been Food and Drug Administration (FDA) cleared or approved. This is a modified version of an approved Emergency Use Authorization (EUA) and is in the process of review by the FDA. Once authorized by the FDA, the issued EUA will be effective until the declaration that circumstances exist justifying the authorization of the emergency use of in vitro diagnostic tests for detection and/or diagnosis of COVID-19 is terminated under Section 564(b)(2) of the Act or the EUA is revoked under Section 564(g) of the Act.Fact Sheet for Healthcare Providers:https://www.[facility].CloudDock/sites/default/files/product/documents/Fact_Shee b_PF_Hungsnzqj_Qsvy_OENO-MkL-5.pdfFact Sheet for Healthcare Patients:https://www.[facility].[employer]ock/sites/default/files/product/ documents/Xwsn_Jcinw_Weuxtvda_Yezw_EBRY-RtZ-1.pdfPerforming Laboratory:[facility], [place] [address]FRWA-LIQIXEQ METER 2021-10-05 08:03:30 Test Item Value Reference Range Interpretation Comments POC-GLUCOSE METER 109 mg/dL 70-110 : TESTED A T [facility] 6720 (BEAKER) (test code = [place] [facility], 1538) [address]: Filler Block Inserter Remover/Techni dakota ID = [id number] for ERNST FRANCOIS HEPATIC FUNCTION [id number] 07:35:20 Test Item Value Reference Range Interpretation Comments TOTAL PROTEIN (BEAKER) (test code = 4.8 gm/dL 6.0-8.3 L 770) ALBUMIN (BEAKER) (test code = 1145) 2.3 g/dL 3.5-5.0 L BILIRUBIN TOTAL (BEAKER) (test code 0.2 mg/dL 0.2-1.2 = 377) BILIRUBIN DIRECT (BEAKER) (test 0.1 mg/dL 0.1-0.5 code = 706) ALKALINE PHOSPHATASE (BEAKER) (test 55 U/L 40-150 code = 346) AST (SGOT) (BEAKER) (test code = 11 U/L 5-34 353) ALT (SGPT) (BEAKER) (test code = 12 U/L 6-55 347) Filler Block Inserter Remover ID - MARIBEL LOperator ID - [id number] 06:55:48 Test Item Value Reference Range Interpretation Comments MAGNESIUM (BEAKER) (test code = 1.6 mg/dL 1.6-2.6 627) Filler Block Inserter Remover ID - MARIBEL [id number] 06:55:48 Test Item Value Reference Range Interpretation Comments PHOSPHORUS (BEAKER) (test code = 2.1 mg/dL 2.3-4.7 L 604) Filler Block Inserter Remover ID - MARIBEL LBASIC METABOLIC [id number] 06:55:47 Test Item Value Reference Range Interpretation Comments SODIUM (BEAKER) 134 meq/L 136-145 L (test code = 381) POTASSIUM (BEAKER) 4.0 meq/L 3.5-5.1 (test code = 379) CHLORIDE (BEAKER) 100 meq/L 98-107 (test code = 382) CO2 (BEAKER) (test 26 meq/L 22-29 code = 355) BLOOD UREA NITROGEN 10 mg/dL 7-21 (BEAKER) (test code = 354) CREATININE (BEAKER) 0.50 mg/dL 0.57-1.25 L (test code = 358) GLUCOSE RANDOM 125 mg/dL 70-105 H (BEAKER) (test code = 652) CALCIUM (BEAKER) 8.1 mg/dL 8.4-10.2 L (test code = 697) EGFR (BEAKER) (test 212 mL/min/1.73 ESTIM ATED GFR IS code = 1092) sq m NOT ACCURATE CREATININE CLEARANCE IN PREDICTING GLOMERULAR FILTRATION RATE . ESTIMATED GFR I S NOT APPLICABLE FOR DIALYSIS PATIEN TS. Filler Block Inserter Remover ID - PIAYA LCBC W/PLT COUNT & AUTO [id number] 06:21:14 Test Item Value Reference Range Interpretation Comments WHITE BLOOD CELL COUNT (BEAKER) 15.7 K/ L 3.5-10.5 H (test code = 775) RED BLOOD CELL COUNT (BEAKER) 3.51 M/ L 4.63-6.08 L (test code = 761) HEMOGLOBIN (BEAKER) (test code = 8.5 GM/DL 13.7-17.5 L 410) HEMATOCRIT (BEAKER) (test code = 28.5 % 40.1-51.0 L 411) MEAN CORPUSCULAR VOLUME (BEAKER) 81.2 fL 79.0-92.2 (test code = 753) MEAN CORPUSCULAR HEMOGLOBIN 24.2 pg 25.7-32.2 L (BEAKER) (test code = 751) MEAN CORPUSCULAR HEMOGLOBIN CONC 29.8 GM/DL 32.3-36.5 L (BEAKER) (test code = 752) RED CELL DISTRIBUTION WIDTH 21.7 % 11.6-14.4 H (BEAKER) (test code = 412) PLATELET COUNT (BEAKER) (test 304 K/CU MM 150-450 code = 756) MEAN PLATELET VOLUME (BEAKER) 9.2 fL 9.4-12.4 L (test code = 754) NUCLEATED RED BLOOD CELLS 0 /100 WBC 0-0 (BEAKER) (test code = 413) NEUTROPHILS RELATIVE PERCENT 77 % (BEAKER) (test code = 429) LYMPHOCYTES RELATIVE PERCENT 13 % (BEAKER) (test code = 430) MONOCYTES RELATIVE PERCENT 5 % (BEAKER) (test code = 431) EOSINOPHILS RELATIVE PERCENT 0 % (BEAKER) (test code = 432) BASOPHILS RELATIVE PERCENT 0 % (BEAKER) (test code = 437) NEUTROPHILS ABSOLUTE COUNT 12.09 K/ L 1.78-5.38 H (BEAKER) (test code = 670) LYMPHOCYTES ABSOLUTE COUNT 2.05 K/ L 1.32-3.57 (BEAKER) (test code = 414) MONOCYTES ABSOLUTE COUNT (BEAKER) 0.77 K/ L 0.30-0.82 (test code = 415) EOSINOPHILS ABSOLUTE COUNT 0.02 K/ L 0.04-0.54 L (BEAKER) (test code = 416) BASOPHILS ABSOLUTE COUNT (BEAKER) 0.03 K/ L 0.01-0.08 (test code = 417) IMMATURE GRANULOCYTES-RELATIVE 5 % 0-1 H PERCENT (BEAKER) (test code = 2801) POCT-GLUCOSE [id number] 21:22:59 Test Item Value Reference Range Interpretation Comments POC-GLUCOSE METER 192 mg/dL 70-110 H : TESTED A T [facility] 6720 (BEAKER) (test code = [facility], [facility]) [address]: Filler Block Inserter Remover/Techni dakota ID = [id number] for Shabbir schneider (contract)Palak POCT-GLUCOSE [id number] 17:34:11 Test Item Value Reference Range Interpretation Comments POC-GLUCOSE METER 201 mg/dL 70-110 H : TESTED A T [facility] 6720 (BEAKER) (test code = [facility], 1538) [address]: Filler Block Inserter Remover/Techni dakota ID = [id number] for Amrita sheltonKeely rodriguez POCT-GLUCOSE [id number] 12:07:46 Test Item Value Reference Range Interpretation Comments POC-GLUCOSE METER 103 mg/dL 70-110 : TESTED A T [facility] 6720 (BEAKER) (test code = [facility], 1538) [address]: Filler Block Inserter Remover/Techni dakota ID = [id number] for ERNST FRANCOIS OBTAINED CULTURE + GRAM [id number] 09:10:42 Test Item Value Reference Range Interpretation Comments CULTURE (BEAKER) (test ESCHERICHIA COLI A 4 + Escherichia code = 1095) coli Amikacin (test code = S 1) Ampicillin + Sulbactam S (test code = 6) Aztreonam (test code = S 32) Cefepime (test code = S 51) Cefoxitin (test code = R 68) Ceftazidime (test code S = 27) Ceftriaxone (test code S = 52) Ertapenem (test code = S 38) Gentamicin (test code S = 18) Levofloxacin (test S code = 22) Meropenem (test code = S 34) Nitrofurantoin (test S code = 23) Piperacillin + S Tazobactam (test code = 29) Tetracycline (test S code = 2) Tobramycin (test code S = 25) Trimethoprim + S Sulfamethoxazole (test code = 47) GRAM STAIN RESULT 2+ White blood (BEAKER) (test code = cells seen 1123) GRAM STAIN RESULT <1+ gram negative (BEAKER) (test code = rods [id number]) HEPATIC FUNCTION [id number] 07:01:07 Test Item Value Reference Range Interpretation Comments TOTAL PROTEIN (BEAKER) (test code = 4.8 gm/dL 6.0-8.3 L 770) ALBUMIN (BEAKER) (test code = 1145) 2.3 g/dL 3.5-5.0 L BILIRUBIN TOTAL (BEAKER) (test code 0.4 mg/dL 0.2-1.2 = 377) BILIRUBIN DIRECT (BEAKER) (test 0.2 mg/dL 0.1-0.5 code = 706) ALKALINE PHOSPHATASE (BEAKER) (test 52 U/L 40-150 code = 346) AST (SGOT) (BEAKER) (test code = 15 U/L 5-34 353) ALT (SGPT) (BEAKER) (test code = 12 U/L 6-55 347) Filler Block Inserter Remover ID - BISI [id number] 07:01:06 Test Item Value Reference Range Interpretation Comments PHOSPHORUS (BEAKER) (test code = 2.8 mg/dL 2.3-4.7 604) Filler Block Inserter Remover ID - BISI GBASIC METABOLIC [id number] 07:01:05 Test Item Value Reference Range Interpretation Comments SODIUM (BEAKER) 136 meq/L 136-145 (test code = 381) POTASSIUM (BEAKER) 4.3 meq/L 3.5-5.1 (test code = 379) CHLORIDE (BEAKER) 102 meq/L 98-107 (test code = 382) CO2 (BEAKER) (test 27 meq/L 22-29 code = 355) BLOOD UREA NITROGEN 9 mg/dL 7-21 (BEAKER) (test code = 354) CREATININE (BEAKER) 0.47 mg/dL 0.57-1.25 L (test code = 358) GLUCOSE RANDOM 97 mg/dL 70-105 (BEAKER) (test code = 652) CALCIUM (BEAKER) 8.3 mg/dL 8.4-10.2 L (test code = 697) EGFR (BEAKER) (test 228 mL/min/1.73 ESTIM ATED GFR IS code = 1092) sq m NOT ACCURATE CREATININE CLEARANCE IN PREDICTING GLOMERULAR FILTRATION RATE . ESTIMATED GFR I S NOT APPLICABLE FOR DIALYSIS PATIEN TS. Filler Block Inserter Remover ID - BISI [id number] 07:01:05 Test Item Value Reference Range Interpretation Comments MAGNESIUM (BEAKER) (test code = 1.6 mg/dL 1.6-2.6 627) Filler Block Inserter Remover ID - BISI GCBC W/PLT COUNT & AUTO [id number] 06:35:47 Test Item Value Reference Range Interpretation Comments WHITE BLOOD CELL COUNT (BEAKER) 16.8 K/ L 3.5-10.5 H (test code = 775) RED BLOOD CELL COUNT (BEAKER) 3.54 M/ L 4.63-6.08 L (test code = 761) HEMOGLOBIN (BEAKER) (test code = 8.7 GM/DL 13.7-17.5 L 410) HEMATOCRIT (BEAKER) (test code = 28.6 % 40.1-51.0 L 411) MEAN CORPUSCULAR VOLUME (BEAKER) 80.8 fL 79.0-92.2 (test code = 753) MEAN CORPUSCULAR HEMOGLOBIN 24.6 pg 25.7-32.2 L (BEAKER) (test code = 751) MEAN CORPUSCULAR HEMOGLOBIN CONC 30.4 GM/DL 32.3-36.5 L (BEAKER) (test code = 752) RED CELL DISTRIBUTION WIDTH 21.8 % 11.6-14.4 H (BEAKER) (test code = 412) PLATELET COUNT (BEAKER) (test 256 K/CU MM 150-450 code = 756) MEAN PLATELET VOLUME (BEAKER) 9.5 fL 9.4-12.4 (test code = 754) NUCLEATED RED BLOOD CELLS 0 /100 WBC 0-0 (BEAKER) (test code = 413) NEUTROPHILS RELATIVE PERCENT 89 % (BEAKER) (test code = 429) LYMPHOCYTES RELATIVE PERCENT 5 % (BEAKER) (test code = 430) MONOCYTES RELATIVE PERCENT 2 % (BEAKER) (test code = 431) EOSINOPHILS RELATIVE PERCENT 0 % (BEAKER) (test code = 432) BASOPHILS RELATIVE PERCENT 0 % (BEAKER) (test code = 437) NEUTROPHILS ABSOLUTE COUNT 14.86 K/ L 1.78-5.38 H (BEAKER) (test code = 670) LYMPHOCYTES ABSOLUTE COUNT 0.89 K/ L 1.32-3.57 L (BEAKER) (test code = 414) MONOCYTES ABSOLUTE COUNT (BEAKER) 0.39 K/ L 0.30-0.82 (test code = 415) EOSINOPHILS ABSOLUTE COUNT 0.00 K/ L 0.04-0.54 L (BEAKER) (test code = 416) BASOPHILS ABSOLUTE COUNT (BEAKER) 0.01 K/ L 0.01-0.08 (test code = 417) IMMATURE GRANULOCYTES-RELATIVE 4 % 0-1 H PERCENT (BEAKER) (test code = 2801) POCT-GLUCOSE [id number] 16:48:07 Test Item Value Reference Range Interpretation Comments POC-GLUCOSE METER 113 mg/dL 70-110 H : TESTED A T [facility] 6720 (BEAKER) (test code = [place], 1538) [address]: Filler Block Inserter Remover/Techni dakota ID = [id number] for MASON FALCON POCT-GLUCOSE [id number] 11:46:29 Test Item Value Reference Range Interpretation Comments POC-GLUCOSE METER 116 mg/dL 70-110 H : TESTED A T [facility] 6720 (BEAKER) (test code = [place], 1538) [address]: Filler Block Inserter Remover/Techni dakota ID = [id number] for MASON FALCON ANTI-DNA [id number] 11:16:17 Test Item Value Reference Range Interpretation Comments ANTI-DNA TITER (BEAKER) (test code = :80 1553) DOUBLE-STRANDED DNA (DSDNA) [id number] 11:16:05 Test Item Value Reference Range Interpretation Comments ANTI-DNA DS (BEAKER) (test code = Positive Negative 1055) ANAEROBIC [id number] 08:30:44 Test Item Value Reference Range Interpretation Comments CULTURE (BEAKER) (test No anaerobes isolated code = 1095) HEPATIC FUNCTION [id number] 05:47:57 Test Item Value Reference Range Interpretation Comments TOTAL PROTEIN (BEAKER) 4.9 gm/dL 6.0-8.3 L Speci men slightly (test code = 770) hemolyzed ALBUMIN (BEAKER) (test 2.3 g/dL 3.5-5.0 L Speci men slightly code = 1145) hemolyzed BILIRUBIN TOTAL 0.4 mg/dL 0.2-1.2 Specimen sli ghtly (BEAKER) (test code = hemoly zed 377) BILIRUBIN DIRECT 0.2 mg/dL 0.1-0.5 Specimen sl ightly (BEAKER) (test code = hemoly zed 706) ALKALINE PHOSPHATASE 59 U/L 40-150 (BEAKER) (test code = 346) AST (SGOT) (BEAKER) 17 U/L 5-34 Specimen slightly (test code = 353) hemolyzed ALT (SGPT) (BEAKER) 11 U/L 6-55 Specimen slightly (test code = 347) hemolyzed Filler Block Inserter Remover ID - PIAYA LBASIC METABOLIC [id number] 05:47:56 Test Item Value Reference Range Interpretation Comments SODIUM (BEAKER) 134 meq/L 136-145 L (test code = 381) POTASSIUM (BEAKER) 4.3 meq/L 3.5-5.1 Specimen slightly (test code = 379) hemolyzed CHLORIDE (BEAKER) 102 meq/L 98-107 (test code = 382) CO2 (BEAKER) (test 22 meq/L 22-29 code = 355) BLOOD UREA NITROGEN 10 mg/dL 7-21 (BEAKER) (test code = 354) CREATININE (BEAKER) 0.47 mg/dL 0.57-1.25 L Specimen slightly (test code = 358) hemolyzed GLUCOSE RANDOM 107 mg/dL 70-105 H (BEAKER) (test code = 652) CALCIUM (BEAKER) 8.2 mg/dL 8.4-10.2 L (test code = 697) EGFR (BEAKER) (test 228 mL/min/1.73 ESTIM ATED GFR IS code = 1092) sq m NOT ACCURATE CREATININE CLEARANCE IN PREDICTING GLOMERULAR FILTRATION RATE . ESTIMATED GFR I S NOT APPLICABLE FOR DIALYSIS PATIEN TS. Filler Block Inserter Remover ID - PIJOVI [id number] 05:47:55 Test Item Value Reference Range Interpretation Comments PHOSPHORUS (BEAKER) 4.6 mg/dL 2.3-4.7 Specimen slightly (test code = 604) hemolyzed Filler Block Inserter Remover ID - PIJOVI [id number] 05:47:54 Test Item Value Reference Range Interpretation Comments MAGNESIUM (BEAKER) 1.9 mg/dL 1.6-2.6 Specimen slightly (test code = 627) hemolyzed Filler Block Inserter Remover ID - PIJOVI LCBC (HEMOGRAM ONLY)2021-10-03 05:23:39 Test Item Value Reference Range Interpretation Comments WHITE BLOOD CELL COUNT (BEAKER) 29.1 K/ L 3.5-10.5 H (test code = 775) RED BLOOD CELL COUNT (BEAKER) 4.15 M/ L 4.63-6.08 L (test code = 761) HEMOGLOBIN (BEAKER) (test code = 9.9 GM/DL 13.7-17.5 L 410) HEMATOCRIT (BEAKER) (test code = 32.4 % 40.1-51.0 L 411) MEAN CORPUSCULAR VOLUME (BEAKER) 78.1 fL 79.0-92.2 L (test code = 753) MEAN CORPUSCULAR HEMOGLOBIN 23.9 pg 25.7-32.2 L (BEAKER) (test code = 751) MEAN CORPUSCULAR HEMOGLOBIN CONC 30.6 GM/DL 32.3-36.5 L (BEAKER) (test code = 752) RED CELL DISTRIBUTION WIDTH 22.2 % 11.6-14.4 H (BEAKER) (test code = 412) PLATELET COUNT (BEAKER) (test 335 K/CU MM 150-450 code = 756) MEAN PLATELET VOLUME (BEAKER) 9.4 fL 9.4-12.4 (test code = 754) NUCLEATED RED BLOOD CELLS 0 /100 WBC 0-0 (BEAKER) (test code = 413) POCT-GLUCOSE [id number] 05:08:33 Test Item Value Reference Range Interpretation Comments POC-GLUCOSE METER 102 mg/dL 70-110 : Notified RN/MD: (BEAKER) (test code = TESTED AT [facility] 6768 9730) [facility] [place], [address]: Filler Block Inserter Remover/Techni dakota ID = [id number] for Aaron Paul BASIC METABOLIC [id number] 21:11:22 Test Item Value Reference Range Interpretation Comments SODIUM (BEAKER) 136 meq/L 136-145 (test code = 381) POTASSIUM (BEAKER) 4.2 meq/L 3.5-5.1 (test code = 379) CHLORIDE (BEAKER) 105 meq/L 98-107 (test code = 382) CO2 (BEAKER) (test 26 meq/L 22-29 code = 355) BLOOD UREA NITROGEN 9 mg/dL 7-21 (BEAKER) (test code = 354) CREATININE (BEAKER) 0.47 mg/dL 0.57-1.25 L (test code = 358) GLUCOSE RANDOM 135 mg/dL 70-105 H (BEAKER) (test code = 652) CALCIUM (BEAKER) 7.9 mg/dL 8.4-10.2 L (test code = 697) EGFR (BEAKER) (test 228 mL/min/1.73 ESTIM ATED GFR IS code = 1092) sq m NOT ACCURATE CREATININE CLEARANCE IN PREDICTING GLOMERULAR FILTRATION RATE . ESTIMATED GFR I S NOT APPLICABLE FOR DIALYSIS PATIEN TS. Filler Block Inserter Remover ID - [id number] 21:10:34 Test Item Value Reference Range Interpretation Comments PHOSPHORUS (BEAKER) (test code = 4.2 mg/dL 2.3-4.7 604) Filler Block Inserter Remover ID - [id number] 21:10:33 Test Item Value Reference Range Interpretation Comments MAGNESIUM (BEAKER) (test code = 1.4 mg/dL 1.6-2.6 L 627) Filler Block Inserter Remover ID - ADMINCBC (HEMOGRAM ONLY)2021-10-02 20:57:35 Test Item Value Reference Range Interpretation Comments WHITE BLOOD CELL COUNT (BEAKER) 24.9 K/ L 3.5-10.5 H (test code = 775) RED BLOOD CELL COUNT (BEAKER) 4.02 M/ L 4.63-6.08 L (test code = 761) HEMOGLOBIN (BEAKER) (test code = 9.5 GM/DL 13.7-17.5 L 410) HEMATOCRIT (BEAKER) (test code = 32.4 % 40.1-51.0 L 411) MEAN CORPUSCULAR VOLUME (BEAKER) 80.6 fL 79.0-92.2 (test code = 753) MEAN CORPUSCULAR HEMOGLOBIN 23.6 pg 25.7-32.2 L (BEAKER) (test code = 751) MEAN CORPUSCULAR HEMOGLOBIN CONC 29.3 GM/DL 32.3-36.5 L (BEAKER) (test code = 752) RED CELL DISTRIBUTION WIDTH 21.7 % 11.6-14.4 H (BEAKER) (test code = 412) PLATELET COUNT (BEAKER) (test 265 K/CU MM 150-450 code = 756) MEAN PLATELET VOLUME (BEAKER) 9.7 fL 9.4-12.4 (test code = 754) NUCLEATED RED BLOOD CELLS 0 /100 WBC 0-0 (BEAKER) (test code = 413) POCT-GLUCOSE [id number] 19:48:59 Test Item Value Reference Range Interpretation Comments POC-GLUCOSE METER 104 mg/dL 70-110 : TESTED A T [facility] 6720 (BEAKER) (test code = [place], 1538) [address]: Filler Block Inserter Remover/Techni dakota ID = [id number] for Marcio Guerra HGB/HCT (H&H) - STAT [id number] 18:09:55 Test Item Value Reference Range Interpretation Comments HEMOGLOBIN (BEAKER) (test code = 10.2 GM/DL 13.0-16.8 L 410) HEMATOCRIT (BEAKER) (test code = 30.0 % 40.0-50.0 L 411) SODIUM NA-STAT [id number] 18:09:54 Test Item Value Reference Range Interpretation Comments SODIUM (BEAKER) (test code = 381) 130 meq/L 136-145 L CALCIUM, [id number] 18:09:53 Test Item Value Reference Range Interpretation Comments CALCIUM IONIZED (BEAKER) (test 1.07 mmol/L 1.12-1.27 L code = 698) PH, BLOOD (BEAKER) (test code = 7.50 1810) BLOOD GAS, [id number] 18:09:53 Test Item Value Reference Range Interpretation Comments PH ARTERIAL (BEAKER) (test code = 7.50 7.35-7.45 H 383) PCO2 ARTERIAL (BEAKER) (test code 35 mm Hg 35-45 = 384) PO2 ARTERIAL (BEAKER) (test code = 139 mm Hg 80-90 H 385) O2 SATURATION ARTERIAL (BEAKER) 99.0 % 96.0-97.0 H (test code = 386) HCO3 ARTERIAL (BEAKER) (test code 27 mmol/L 21-29 = 388) BASE EXCESS ARTERIAL (BEAKER) 3.8 mmol/L -2.0-3.0 H (test code = 387) PATIENT TEMPERATURE (BEAKER) (test 37.0 code = 1818) GLUCOSE-STAT [id number] 18:08:53 Test Item Value Reference Range Interpretation Comments GLUCOSE RANDOM (BEAKER) (test code 101 mg/dL 70-110 = 652) POTASSIUM-STAT [id number] 18:08:53 Test Item Value Reference Range Interpretation Comments POTASSIUM (BEAKER) (test code = 4.2 meq/L 3.6-5.5 379) POCT-GLUCOSE [id number] 16:03:15 Test Item Value Reference Range Interpretation Comments POC-GLUCOSE METER 128 mg/dL 70-110 H : [facility] (BEAKER) (test code = [place], 1538) [address]: Filler Block Inserter Remover/Techni dakota ID = [id number] for Keely House VANCOMYCIN LEVEL, [id number] 14:06:37 Test Item Value Reference Range Interpretation Comments VANCOMYCIN TROUGH (BEAKER) (test 10.9 ug/mL 10.0-20.0 code = 522) Filler Block Inserter Remover ID - DBSARS-COV2/RT-PCR ([facility])2021-10-02 12:40:57 Test Item Value Reference Range Interpretation Comments SARS-COV2/RT-PCR (test Negative Not Detected, Negative, code = 9565636) See external report for linked test SARS-COV-2 PERFORMING LAB [facility] SHAUNA (test code = 6175598) Negative result for this test determines that SARS-CoV-2 RNA was not present in the specimen above the Limit of Detection (LOD). However, Negative results do not preclude SARS-CoV-2 infection and should not be used as the sole basis for treatment or patient management decisions. Negative results mustbe combined with clinical observations, patient history, and epidemiological information. A false negative result may occur if a specimen is improperly collected, transported or handled. A false negative result should be considered if patient's recent exposures or clinical presentation indicate that COVID-19 (SARS-CoV-2) is likely and diagnostic tests for other causes of illness are negative. Re-testing should be considered in cases of suspected false negatives.The limit of detection for this assay is 800 copies/mL.This SARS CoV-2 test is a real-time RT-PCR test intended for the qualitative detection of nucleic acid from SARS-CoV-2 in a nasopharyngeal swab specimen collected from individuals susp ected of COVID-19 by their healthcare provider.This test has not been Food and Drug Administration (FDA) cleared or approved. This is a modified version of an approved Emergency Use Authorization (EUA) and is in the process of review by the FDA. Once authorized by the FDA, the issued EUA will be effective until the declaration that circumstances exist justifying the authorization of the emergency use of in vitro diagnostic tests for detection and/or diagnosis of COVID-19 is terminated under Section 564(b)(2) of the Act or the EUA is revoked under Section 564(g) of the Act.Fact Sheet for Healthcare Providers:https://www.[employer].com/sites/default/files/product/documents/Fact_Shee p_[place]_Wbykovgze_Zvct_VTRH-PoU-6.pdfFact Sheet for Healthcare Patients:https://www.[employer].com/sites/default/files/product/ documents/Avke_Zwobu_Walaaafw_Qdag_GEVL-SjJ-9.pdfPerforming Laboratory:[place] [address] [address] [id number], DRAINAGE, [id number] 11:36:00Reason for exam:->necrotizing pancreatitis wiht fluid collections in abdomenReason for exam:->pls send cultures (aerobic, anaerobic) and amylase from fluid (all are ordered) [facility] 2000 Sex: MFINAL REPORT PROCEDURE: Drainage catheter placement Procedural Personn elAttending physician(s): Marvin Jordan physician(s): NoneResident physician(s): NoneAdvancedpractice provider(s): None Pre-procedure diagnosis: Necrotizing pancreatitisPost-procedure diagnosis: SameIndication: Leukocytosis with fluid collectionAdditional clinical history: None Complications: No immediate complications. IMPRESSION: Percutaneous placement of a 16 Italian drainage catheter into the anterior right upper quadrant fluid collection, yielding 100 mL of foul smelling murky brown fluid. Plan: Drain to bulb suction. Samples sent for culture. PROCEDURE SUMMARY:- Abdominal fluid collection drainage catheter placementunder CT guidance- Additional procedure(s): None PROCEDURE DETAILS: Pre-procedureConsent: Informed consent for the procedure including risks, benefits and alternatives was obtained and time-out was perf ormed prior to the procedure.Preparation: The site was prepared and draped using maximal sterile barrier technique including cutaneous antisepsis. Anesthesia/sedationLevel of anesthesia/sedation: Moderate sedation (conscious sedation) 1mg versed, 50mcg fentanylAnesthesia/sedation administered by: Indep endent trained observer under attending supervision with continuous monitoring of the patient\\X2019\\s level of consciousness and physiologic statusTotal intra- service sedation time (minutes): 30 Drainage catheter placementThe patient was positioned supine. Initial imaging was performed. Local anesthesia was administered. The fluid collection was accessed using trocar technique and a drainage catheterwas placed. Position of the drainage catheter within the fluid collection was confirmed. - Initial imaging findings: Multiple large intra- abdominal fluid collection- Drainage catheter placed: 16Fr cookmultipurpose- External catheter securement: Non-absorbable suture- Post-drainage imaging findings: Partial drainage of the fluid collection ContrastContrast agent: NoneContrast volume (mL): 0 RadiationDoseCT dose length product (mGy-cm): 2988 This exam was performed according to the departmental dose-optimization program which includes automated exposure control, adjustment of the mA and/or kV accor ding to patient size and/or use of iterative reconstruction technique. Additional DetailsAdditional description of procedure: NoneEquipment details: NoneSpecimens removed: Aspirated fluid was sent for analysis.Estimated blood loss (mL): Less than 10Standardized report: SIR_DrainPlacement_v3 Attestation Signer name: Robby Loya attest that I was present for the entire procedure. I reviewed the stored images and agree with the report as written. Signed: Robby Daly MDReport Verified Date/Time: 10/02/2021 11:36:21 POCT-GLUCOSE [id number] 11:03:27 Test Item Value Reference Range Interpretation Comments POC-GLUCOSE METER 109 mg/dL 70-110 : TESTED A T [facility] 6720 (BEAKER) (test code = [place], 1538) [address]: Filler Block Inserter Remover/Techni dakota ID = [id number] for QUEEN HONEYCUTT BLOOD [id number] 10:09:04 Test Item Value Reference Interpretation Comments Range CULTURE (BEAKER) STAPHYLOCOCCUS A From Dago reynoso (test code = 1095) HOMINIS Bottle On ly Staphylococcus hominis Clindamycin (test S code = 10) Erythromycin (test S code = 4) Linezolid (test code S = 40) Nitrofurantoin (test S code = 23) Oxacillin (test code S = 14) Rifampin (test code = S 43) Tetracycline (test S code = 2) Trimethoprim + S Sulfamethoxazole (test code = 47) Vancomycin (test code S = 13) GRAM STAIN RESULT From anaerobic (BEAKER) (test code = bottle only: gram 1123) positive cocci in clusters POCT-GLUCOSE [id number] 07:31:14 Test Item Value Reference Range Interpretation Comments POC-GLUCOSE METER 76 mg/dL 70-110 : TESTED A T [facility] 6720 (BEAKER) (test code = [place]A [place], 1538) [address]: Filler Block Inserter Remover/Techni dakota ID = [id number] for QUEEN JACOBSEN [id number] 07:25:22 Test Item Value Reference Range Interpretation Comments PHOSPHORUS (BEAKER) (test code = 3.1 mg/dL 2.3-4.7 604) Filler Block Inserter Remover ID - RMHEPATIC FUNCTION [id number] 07:25:22 Test Item Value Reference Range Interpretation Comments TOTAL PROTEIN (BEAKER) (test code = 5.4 gm/dL 6.0-8.3 L 770) ALBUMIN (BEAKER) (test code = 1145) 2.3 g/dL 3.5-5.0 L BILIRUBIN TOTAL (BEAKER) (test code 0.3 mg/dL 0.2-1.2 = 377) BILIRUBIN DIRECT (BEAKER) (test 0.2 mg/dL 0.1-0.5 code = 706) ALKALINE PHOSPHATASE (BEAKER) (test 63 U/L 40-150 code = 346) AST (SGOT) (BEAKER) (test code = 11 U/L 5-34 353) ALT (SGPT) (BEAKER) (test code = 7 U/L 6-55 347) Filler Block Inserter Remover ID - RMBASIC METABOLIC [id number] 07:25:21 Test Item Value Reference Range Interpretation Comments SODIUM (BEAKER) 134 meq/L 136-145 L (test code = 381) POTASSIUM (BEAKER) 4.4 meq/L 3.5-5.1 (test code = 379) CHLORIDE (BEAKER) 99 meq/L 98-107 (test code = 382) CO2 (BEAKER) (test 28 meq/L 22-29 code = 355) BLOOD UREA NITROGEN 9 mg/dL 7-21 (BEAKER) (test code = 354) CREATININE (BEAKER) 0.49 mg/dL 0.57-1.25 L (test code = 358) GLUCOSE RANDOM 76 mg/dL 70-105 (BEAKER) (test code = 652) CALCIUM (BEAKER) 8.5 mg/dL 8.4-10.2 (test code = 697) EGFR (BEAKER) (test 217 mL/min/1.73 ESTIM ATED GFR IS code = 1092) sq m NOT ACCURATE CREATININE CLEARANCE IN PREDICTING GLOMERULAR FILTRATION RATE . ESTIMATED GFR I S NOT APPLICABLE FOR DIALYSIS PATIEN TS. Filler Block Inserter Remover ID - [id number] 07:25:21 Test Item Value Reference Range Interpretation Comments MAGNESIUM (BEAKER) (test code = 1.6 mg/dL 1.6-2.6 627) Filler Block Inserter Remover ID - RMCBC (HEMOGRAM ONLY)2021-10-02 06:32:43 Test Item Value Reference Range Interpretation Comments WHITE BLOOD CELL COUNT (BEAKER) 14.3 K/ L 3.5-10.5 H (test code = 775) RED BLOOD CELL COUNT (BEAKER) 4.45 M/ L 4.63-6.08 L (test code = 761) HEMOGLOBIN (BEAKER) (test code = 10.8 GM/DL 13.7-17.5 L 410) HEMATOCRIT (BEAKER) (test code = 35.0 % 40.1-51.0 L 411) MEAN CORPUSCULAR VOLUME (BEAKER) 78.7 fL 79.0-92.2 L (test code = 753) MEAN CORPUSCULAR HEMOGLOBIN 24.3 pg 25.7-32.2 L (BEAKER) (test code = 751) MEAN CORPUSCULAR HEMOGLOBIN CONC 30.9 GM/DL 32.3-36.5 L (BEAKER) (test code = 752) RED CELL DISTRIBUTION WIDTH 21.6 % 11.6-14.4 H (BEAKER) (test code = 412) PLATELET COUNT (BEAKER) (test 285 K/CU MM 150-450 code = 756) MEAN PLATELET VOLUME (BEAKER) 9.6 fL 9.4-12.4 (test code = 754) NUCLEATED RED BLOOD CELLS 0 /100 WBC 0-0 ([facility]) (test code = 413) POCT-GLUCOSE [id number] 21:46:52 Test Item Value Reference Range Interpretation Comments POC-GLUCOSE METER 229 mg/dL 70-110 H : TESTED A T [facility] 6720 ([facility]) (test code = [facility], 1538) [address]: Filler Block Inserter Remover/Techni dakota ID = [id number] for HERLINDA VELASQUEZ POCT-GLUCOSE [id number] 16:53:40 Test Item Value Reference Range Interpretation Comments POC-GLUCOSE METER 231 mg/dL 70-110 H : Notified RN/MD: ([facility]) (test code = TESTED AT [facility] 6720 1538) [facility] [place], [address]: Filler Block Inserter Remover/Techni dakota ID = [id number] for Filippo Feldman POCT-GLUCOSE [id number] 12:29:44 Test Item Value Reference Range Interpretation Comments POC-GLUCOSE METER 186 mg/dL 70-110 H : TESTED A [facility] 6720 ([facility]) (test code = [facility], 1538) [address]: Filler Block Inserter Remover/Techni dakota ID = [id number] for DELMAR COOPER CT, ABDOMEN - PELVIS, PANCREAS [id number] 09:34:00Please have IV contrast if not already part of protocol.Unlisted Reason for Exam - Click Yes and Enter Reason Below->No [facility] : 2000 Sex: MFINAL REPORT EXAM: CT Abdomen and Pelvis WITHOUT and WITH contrast IN DICATION: Necrotizing pancreatitis, abdominal infection.COMPARISON: CT abdomen and pelvis 09/27/2021.TECHNIQUE: CT of the abdomen and pelvis WITHOUT and WITH intravenous contrast and WITHOUT oral contrast. Dose modulation, iterative reconstruction, and/or weight-based adjustment of the mA/kV was utilized to reduce the radiation dose to as low as reasonably achievable. FINDINGS: LOWER THORAX: Small bilateral pleural effusions new since the prior examination from 09/27/2021. Probably linear opacities within the lower lobes likely reflecting atelectatic change. Tiny pericardial effusion, as before. HEPATOBILIARY: No focal hepatic lesions. Gallbladder is unremarkable. No biliary ductal dilatation.SPLEEN: Splenomegaly with spleen measuring 15.9 cm in craniocaudal dimension. PANCREAS: No focal masses or ductal dilatation. Normal enhancement of the pancreatic parenchyma without pancreatic necrosis Superior Mesenteric Artery: Patent Celiac Montgomery: Patent Celiac Montgomery and Hepatic Artery Anatomy: Conventional Gastroduodenal Artery: Patent Splenic Artery: Patent Main PortalVein: Patent Portal Vein Crow[place]: Patent Splenic Vein: Patent Superior Mesenteric Vein: Patent ADRENALS: No adrenal nodules.KIDNEYS/URETERS: No hydronephrosis, stones, or masses.PELVIC ORGANS/BLADDER: Unremarkable. PERITONEUM/RETROPERITONEUM: There has been interval placement of a percutaneous drain into the ill-defined partially loculated gas and fluid containing focus adjacent to theanterior aspect of the pancreas. Overall this portion of the collection is minimally decreased in size. Additional communicating multilobulated gas and fluid containing collections extend caudally along the lateral conal fascia, as before. Loculated foci of fluid along the left anterior abdominal walland within the right retroperitoneum, as before. No gross free air within the upper abdomen.LYMPH NOD ES: No lymphadenopathy.VESSELS: Unremarkable. GI TRACT: No distention or wall thickening. BONES AND SOFT TISSUES: Unremarkable. IMPRESSION: 1. New small bilateral pleural effusions with bibasilar atelectatic change. Persistent tiny pericardial effusion.2. Extensive loculated collections within the abdomen containing gas and fluid with interval placement of a percutaneous catheter into the dominant collection anterior to the pancreas, stable to minimally decreased in size. Otherwise additional multilobulated loculated collections containing fluid and gas throughout the abdomen and retroperitoneum without significant interval change. There are no areas of pancreatic nonenhancement identified to indicate necrosis. Mesenteric vasculature remains patent. Signed: Archana Holloway MDReport Verified Date/Time: 10/01/2021 09:34:00 BLOOD CULTURE 2021-10-01 08:36:30 Test Item Value Reference Range Interpretation Comments CULTURE A From Aerobic An d (BEAKER) (test Anaerobic Bot tles Same code = 1095) organism has be en isolated from cultures(s) of the same body site and collection date . Repeat identifi cation and susceptibil ity testing perform ed only after consultat ion with the [facility] microbiology laboratory.Refe r to previous cultur e of* - Staphylococcus hominis GRAM STAIN From aerobic and RESULT (BEAKER) anaerobic (test code = bottles: gram 1123) positive cocci in clusters BODY FLUID CULTURE + GRAM [id number] 08:15:57 Test Item Value Reference Range Interpretation Comments CULTURE (BEAKER) (test ESCHERICHIA COLI A 4 + Escherichia code = 1095) coli Amikacin (test code = S 1) Ampicillin + Sulbactam S (test code = 6) Aztreonam (test code = S 32) Cefepime (test code = S 51) Cefoxitin (test code = R 68) Ceftazidime (test code S = 27) Ceftriaxone (test code S = 52) Ertapenem (test code = S 38) Gentamicin (test code S = 18) Levofloxacin (test S code = 22) Meropenem (test code = S 34) Nitrofurantoin (test S code = 23) Piperacillin + S Tazobactam (test code = 29) Tetracycline (test S code = 2) Tobramycin (test code S = 25) Trimethoprim + S Sulfamethoxazole (test code = 47) GRAM STAIN RESULT 2+ White blood (BEAKER) (test code = cells seen 1123) GRAM STAIN RESULT 2+ gram negative (BEAKER) (test code = rods [id number]) [id number] 05:43:54 Test Item Value Reference Range Interpretation Comments PHOSPHORUS (BEAKER) (test code = 2.8 mg/dL 2.3-4.7 604) Filler Block Inserter Remover ID - SHREE WHEPATIC FUNCTION [id number] 05:43:54 Test Item Value Reference Range Interpretation Comments TOTAL PROTEIN (BEAKER) (test code = 5.2 gm/dL 6.0-8.3 L 770) ALBUMIN (BEAKER) (test code = 1145) 2.2 g/dL 3.5-5.0 L BILIRUBIN TOTAL (BEAKER) (test code 0.3 mg/dL 0.2-1.2 = 377) BILIRUBIN DIRECT (BEAKER) (test 0.2 mg/dL 0.1-0.5 code = 706) ALKALINE PHOSPHATASE (BEAKER) (test 64 U/L 40-150 code = 346) AST (SGOT) (BEAKER) (test code = 11 U/L 5-34 353) ALT (SGPT) (BEAKER) (test code = 7 U/L 6-55 347) Filler Block Inserter Remover ID Cherelle SWANN WBASIC METABOLIC [id number] 05:43:53 Test Item Value Reference Range Interpretation Comments SODIUM (BEAKER) 136 meq/L 136-145 (test code = 381) POTASSIUM (BEAKER) 3.7 meq/L 3.5-5.1 (test code = 379) CHLORIDE (BEAKER) 100 meq/L 98-107 (test code = 382) CO2 (BEAKER) (test 27 meq/L 22-29 code = 355) BLOOD UREA NITROGEN 10 mg/dL 7-21 (BEAKER) (test code = 354) CREATININE (BEAKER) 0.56 mg/dL 0.57-1.25 L (test code = 358) GLUCOSE RANDOM 98 mg/dL 70-105 (BEAKER) (test code = 652) CALCIUM (BEAKER) 8.3 mg/dL 8.4-10.2 L (test code = 697) EGFR (BEAKER) (test 186 mL/min/1.73 ESTIM ATED GFR IS code = 1092) sq m NOT ACCURATE CREATININE CLEARANCE IN PREDICTING GLOMERULAR FILTRATION RATE . ESTIMATED GFR I S NOT APPLICABLE FOR DIALYSIS PATIEN TS. Filler Block Inserter Remover ID - SHREE [id number] 05:43:53 Test Item Value Reference Range Interpretation Comments MAGNESIUM (BEAKER) (test code = 1.4 mg/dL 1.6-2.6 L 627) Filler Block Inserter Remover ID Cherelle SWANN WCBC (HEMOGRAM ONLY)2021-10-01 05:31:02 Test Item Value Reference Range Interpretation Comments WHITE BLOOD CELL COUNT (BEAKER) 14.5 K/ L 3.5-10.5 H (test code = 775) RED BLOOD CELL COUNT (BEAKER) 4.09 M/ L 4.63-6.08 L (test code = 761) HEMOGLOBIN (BEAKER) (test code = 9.8 GM/DL 13.7-17.5 L 410) HEMATOCRIT (BEAKER) (test code = 32.8 % 40.1-51.0 L 411) MEAN CORPUSCULAR VOLUME (BEAKER) 80.2 fL 79.0-92.2 (test code = 753) MEAN CORPUSCULAR HEMOGLOBIN 24.0 pg 25.7-32.2 L (BEAKER) (test code = 751) MEAN CORPUSCULAR HEMOGLOBIN CONC 29.9 GM/DL 32.3-36.5 L (BEAKER) (test code = 752) RED CELL DISTRIBUTION WIDTH 20.8 % 11.6-14.4 H (BEAKER) (test code = 412) PLATELET COUNT (BEAKER) (test 286 K/CU MM 150-450 code = 756) MEAN PLATELET VOLUME (BEAKER) 9.6 fL 9.4-12.4 (test code = 754) NUCLEATED RED BLOOD CELLS 1 /100 WBC 0-0 H (BEAKER) (test code = 413) POCT-GLUCOSE [id number] 22:44:20 Test Item Value Reference Range Interpretation Comments POC-GLUCOSE METER 162 mg/dL 70-110 H : TESTED A T [facility] 6720 (BEAKER) (test code = [facility], 153) [address]: Filler Block Inserter Remover/Techni dakota ID = [id number] for MARCOS WESTFALL POCT-GLUCOSE [id number] 17:43:25 Test Item Value Reference Range Interpretation Comments POC-GLUCOSE METER 145 mg/dL 70-110 H : TESTED A T [facility] 6720 (BEAKER) (test code = [facility], 153) [address]: Filler Block Inserter Remover/Techni dakota ID = [id number] for DELMAR COOPER POCT-GLUCOSE [id number] 12:01:10 Test Item Value Reference Range Interpretation Comments POC-GLUCOSE METER 147 mg/dL 70-110 H : TESTED A T [facility] 6720 (BEAKER) (test code = [facility], 1538) [address]: Filler Block Inserter Remover/Techni dakota ID = [id number] for DELMAR COOPER POCT-GLUCOSE [id number] 07:49:49 Test Item Value Reference Range Interpretation Comments POC-GLUCOSE METER 131 mg/dL 70-110 H : TESTED A T [facility] (BEAKER) (test code = [facility] [place], 1538) [address]: Filler Block Inserter Remover/Techni dakota ID = [id number] for DELMAR COOPER COMPLEMENT COMPONENT [id number] 02:28:40 Test Item Value Reference Range Interpretation Comments C4 COMPLEMENT (BEAKER) (test code = 5 mg/dL 15-57 L 394) Filler Block Inserter Remover ID - BSCOMPLEMENT COMPONENT [id number] 02:28:40 Test Item Value Reference Range Interpretation Comments C3 COMPLEMENT (BEAKER) (test code = 38 mg/dL 82-193 L 393) Filler Block Inserter Remover ID - BSHEPATIC FUNCTION [id number] 02:27:21 Test Item Value Reference Range Interpretation Comments TOTAL PROTEIN (BEAKER) (test code = 5.6 gm/dL 6.0-8.3 L 770) ALBUMIN (BEAKER) (test code = 1145) 2.3 g/dL 3.5-5.0 L BILIRUBIN TOTAL (BEAKER) (test code 0.3 mg/dL 0.2-1.2 = 377) BILIRUBIN DIRECT (BEAKER) (test 0.1 mg/dL 0.1-0.5 code = 706) ALKALINE PHOSPHATASE (BEAKER) (test 80 U/L 40-150 code = 346) AST (SGOT) (BEAKER) (test code = 13 U/L 5-34 353) ALT (SGPT) (BEAKER) (test code = 11 U/L 6-55 347) Filler Block Inserter Remover ID - [id number] 02:27:20 Test Item Value Reference Range Interpretation Comments MAGNESIUM (BEAKER) (test code = 1.6 mg/dL 1.6-2.6 627) Filler Block Inserter Remover ID - [id number] 02:27:20 Test Item Value Reference Range Interpretation Comments PHOSPHORUS (BEAKER) (test code = 3.0 mg/dL 2.3-4.7 604) Filler Block Inserter Remover ID - BSBASIC METABOLIC [id number] 02:27:19 Test Item Value Reference Range Interpretation Comments SODIUM (BEAKER) 136 meq/L 136-145 (test code = 381) POTASSIUM (BEAKER) 4.1 meq/L 3.5-5.1 (test code = 379) CHLORIDE (BEAKER) 102 meq/L 98-107 (test code = 382) CO2 (BEAKER) (test 24 meq/L 22-29 code = 355) BLOOD UREA NITROGEN 12 mg/dL 7-21 (BEAKER) (test code = 354) CREATININE (BEAKER) 0.61 mg/dL 0.57-1.25 (test code = 358) GLUCOSE RANDOM 182 mg/dL 70-105 H (BEAKER) (test code = 652) CALCIUM (BEAKER) 8.2 mg/dL 8.4-10.2 L (test code = 697) EGFR (BEAKER) (test 169 mL/min/1.73 ESTIM ATED GFR IS code = 1092) sq m NOT ACCURATE CREATININE CLEARANCE IN PREDICTING GLOMERULAR FILTRATION RATE . ESTIMATED GFR I S NOT APPLICABLE FOR DIALYSIS PATIEN TS. Filler Block Inserter Remover ID - BSVANCOMYCIN LEVEL, [id number] 02:21:15 Test Item Value Reference Range Interpretation Comments VANCOMYCIN TROUGH (BEAKER) (test 22.5 ug/mL 10.0-20.0 H code = 522) Filler Block Inserter Remover ID - BSCBC (HEMOGRAM ONLY)2021-09-30 02:04:23 Test Item Value Reference Range Interpretation Comments WHITE BLOOD CELL COUNT (BEAKER) 13.8 K/ L 3.5-10.5 H (test code = 775) RED BLOOD CELL COUNT (BEAKER) 3.91 M/ L 4.63-6.08 L (test code = 761) HEMOGLOBIN (BEAKER) (test code = 9.4 GM/DL 13.7-17.5 L 410) HEMATOCRIT (BEAKER) (test code = 30.4 % 40.1-51.0 L 411) MEAN CORPUSCULAR VOLUME (BEAKER) 77.7 fL 79.0-92.2 L (test code = 753) MEAN CORPUSCULAR HEMOGLOBIN 24.0 pg 25.7-32.2 L (BEAKER) (test code = 751) MEAN CORPUSCULAR HEMOGLOBIN CONC 30.9 GM/DL 32.3-36.5 L (BEAKER) (test code = 752) RED CELL DISTRIBUTION WIDTH 19.6 % 11.6-14.4 H (BEAKER) (test code = 412) PLATELET COUNT (BEAKER) (test 304 K/CU MM 150-450 code = 756) MEAN PLATELET VOLUME (BEAKER) 9.8 fL 9.4-12.4 (test code = 754) NUCLEATED RED BLOOD CELLS 1 /100 WBC 0-0 H (BEAKER) (test code = 413) POCT-GLUCOSE [id number] 20:56:24 Test Item Value Reference Range Interpretation Comments POC-GLUCOSE METER 187 mg/dL 70-110 H : TESTED A T [facility] (BEAKER) (test code = [facility] [place], 1538) [address]: Filler Block Inserter Remover/Techni dakota ID = [id number] for HERLINDA VELASQUEZ CREATININE, RANDOM [id number] 19:52:48 Test Item Value Reference Range Interpretation Comments CREATININE URINE (BEAKER) (test 38.8 mg/dL code = 375) Reference Range: No NormalsOperator ID - BSPROTEIN, RANDOM [id number] 19:52:48 Test Item Value Reference Range Interpretation Comments PROTEIN, URINE (BEAKER) (test code = 25 mg/dL 0-14 H 1569) Filler Block Inserter Remover ID - BSURINALYSIS W/ [id number] 18:44:32 Test Item Value Reference Range Interpretation Comments COLOR (BEAKER) (test code = 470) Yellow CLARITY (BEAKER) (test code = 469) Clear SPECIFIC GRAVITY UA (BEAKER) (test 1.016 1.001-1.035 code = 468) PH UA (BEAKER) (test code = 467) 7.0 5.0-8.0 PROTEIN UA (BEAKER) (test code = 20 mg/dL Negative A 464) GLUCOSE UA (BEAKER) (test code = Negative Negative 365) KETONES UA (BEAKER) (test code = Negative Negative 371) BILIRUBIN UA (BEAKER) (test code = Negative Negative 462) BLOOD UA (BEAKER) (test code = 461) Negative Negative NITRITE UA (BEAKER) (test code = Negative Negative 465) LEUKOCYTE ESTERASE UA (BEAKER) Negative Negative (test code = 466) UROBILINOGEN UA (BEAKER) (test code 0.2 mg/dL 0.2-1.0 = 463) RBC UA (BEAKER) (test code = 519) < /HPF WBC UA (BEAKER) (test code = 520) 1 /HPF BACTERIA (BEAKER) (test code = 517) None Seen MUCUS (BEAKER) (test code = 1574) Rare CRYSTALS, URINE (BEAKER) (test code None Seen = 1521) SOURCE(BEAKER) (test code = 2795) Filler Block Inserter Remover ID - [auto]Filler Block Inserter Remover ID - techAMYLASE, BODY [id number] 09:10:30 Test Item Value Reference Range Interpretation Comments AMYLASE FLUID (BEAKER) (test code = 18 U/L 350) Absence of reference range indicates that normals have not been defined.Assay performance has not been validated for this type of specimen.Filler Block Inserter Remover ID - [id number] 08:52:13 Test Item Value Reference Range Interpretation Comments POC-GLUCOSE METER 103 mg/dL 70-110 : TESTED A T [facility] 6720 (BEAKER) (test code = [facility] [place], 1538) [address]: Filler Block Inserter Remover/Techni dakota ID = [id number] for DELMAR COOPER [id number] 05:58:12 Test Item Value Reference Range Interpretation Comments PHOSPHORUS (BEAKER) (test code = 3.7 mg/dL 2.3-4.7 604) Filler Block Inserter Remover ID - BISI GHEPATIC FUNCTION [id number] 05:58:12 Test Item Value Reference Range Interpretation Comments TOTAL PROTEIN (BEAKER) (test code = 5.3 gm/dL 6.0-8.3 L 770) ALBUMIN (BEAKER) (test code = 1145) 2.1 g/dL 3.5-5.0 L BILIRUBIN TOTAL (BEAKER) (test code 0.3 mg/dL 0.2-1.2 = 377) BILIRUBIN DIRECT (BEAKER) (test 0.2 mg/dL 0.1-0.5 code = 706) ALKALINE PHOSPHATASE (BEAKER) (test 70 U/L 40-150 code = 346) AST (SGOT) (BEAKER) (test code = 17 U/L 5-34 353) ALT (SGPT) (BEAKER) (test code = 10 U/L 6-55 347) Filler Block Inserter Remover ID - BISI GBASIC METABOLIC [id number] 05:58:11 Test Item Value Reference Range Interpretation Comments SODIUM (BEAKER) 138 meq/L 136-145 (test code = 381) POTASSIUM (BEAKER) 3.9 meq/L 3.5-5.1 (test code = 379) CHLORIDE (BEAKER) 102 meq/L 98-107 (test code = 382) CO2 (BEAKER) (test 27 meq/L 22-29 code = 355) BLOOD UREA NITROGEN 10 mg/dL 7-21 (BEAKER) (test code = 354) CREATININE (BEAKER) 0.59 mg/dL 0.57-1.25 (test code = 358) GLUCOSE RANDOM 139 mg/dL 70-105 H (BEAKER) (test code = 652) CALCIUM (BEAKER) 8.2 mg/dL 8.4-10.2 L (test code = 697) EGFR (BEAKER) (test 175 mL/min/1.73 ESTIM ATED GFR IS code = 1092) sq m NOT ACCURATE CREATININE CLEARANCE IN PREDICTING GLOMERULAR FILTRATION RATE . ESTIMATED GFR I S NOT APPLICABLE FOR DIALYSIS PATIEN TS. Filler Block Inserter Remover ID - BISI [id number] 05:58:11 Test Item Value Reference Range Interpretation Comments MAGNESIUM (BEAKER) (test code = 1.7 mg/dL 1.6-2.6 627) Filler Block Inserter Remover ID - BISI GCBC (HEMOGRAM ONLY)2021-09-29 05:50:24 Test Item Value Reference Range Interpretation Comments WHITE BLOOD CELL COUNT (BEAKER) 10.9 K/ L 3.5-10.5 H (test code = 775) RED BLOOD CELL COUNT (BEAKER) 3.13 M/ L 4.63-6.08 L (test code = 761) HEMOGLOBIN (BEAKER) (test code = 7.3 GM/DL 13.7-17.5 L 410) HEMATOCRIT (BEAKER) (test code = 24.0 % 40.1-51.0 L 411) MEAN CORPUSCULAR VOLUME (BEAKER) 76.7 fL 79.0-92.2 L (test code = 753) MEAN CORPUSCULAR HEMOGLOBIN 23.3 pg 25.7-32.2 L (BEAKER) (test code = 751) MEAN CORPUSCULAR HEMOGLOBIN CONC 30.4 GM/DL 32.3-36.5 L (BEAKER) (test code = 752) RED CELL DISTRIBUTION WIDTH 20.0 % 11.6-14.4 H (BEAKER) (test code = 412) PLATELET COUNT (BEAKER) (test 308 K/CU MM 150-450 code = 756) MEAN PLATELET VOLUME (BEAKER) 10.1 fL 9.4-12.4 (test code = 754) NUCLEATED RED BLOOD CELLS 1 /100 WBC 0-0 H (BEAKER) (test code = 413) PROTHROMBIN [id number] 05:37:22 Test Item Value Reference Range Interpretation Comments PROTIME (BEAKER) 15.2 seconds 11.9-14.2 H (test code = 759) INR (BEAKER) (test 1.22 See_Comment [Automat ed message] code = 370) The system [employer] generated this result transmitted ref erence range: <=5.90. The reference range was not used to int erpret this result as normal/abnormal . RECOMMENDED COUMADIN/WARFARIN INR THERAPY RANGESSTANDARD DOSE: 2.0 - 3.0 Includes: PROPHYLAXIS forvenous thrombosis, systemic embolization; TREATMENT for venous thrombosis and/or pulmonary embolus.HIGH RISK: Target INR is 2.5-3.5 for patients with mechanical heart valves.POCT-GLUCOSE [id number] 20:50:31 Test Item Value Reference Range Interpretation Comments POC-GLUCOSE METER 159 mg/dL 70-110 H : Notified RN/MD: (GENEVA) (test code = TESTED AT [facility] 6782 1175) [facility] [place], [address]: Filler Block Inserter Remover/Techni dakota ID = [id number] for HEATH GRANDE RAD, CHEST, 1 VIEW, NON [id number] 19:15:00Reason for exam:->preop patient for OR tomorrowShould this be performed at the bedside?->Yes [facility] 2000 Sex: MFINAL REPORT History: preop patient for OR tomorrow. Surgery unspecif ied. Comparison: 09/27/2021 Findings: A single view of the chest is submitted. The cardiomediastinal contours are unremarkable. The lung volumes are low but similar to previous. Curvilinear opacity in the right greater than left lung bases suggests atelectasis or scarring. Pneumonitis should be excluded clinically. There is no pneumothorax, large pleural effusion, evidence of overt pulmonary edema or acute bony abnormality. A left midline tip overlies the upper arm. Signed: Miles Alicia MDReport Verified Date/Time: 09/28/2021 19:15:11 BLOOD CULTURE IDENTIFICATION [id number] 18:24:37 Test Item Value Reference Interpretation Comments Range LISTERIA MONOCYTOGENES Not detected Not detected (test code = 20160220) STAPHYLOCOCCUS (test Detected Not detected A Coagula se negative code = 20160424) Staph specie s (CoNS)- methici llin resistantFirst- line therapy: Vancom ycin MecA DETECTED Possible contamination. The likelihood of pathogenicity i s increased if th e organism is observed in multiple blood cultures obtain ed from separate venipunctures. Reference Range : Not Detected STAPHYLOCOCCUS AUREUS Not detected Not detected (test code = 7045044) STREPTOCOCCUS (test code Not detected Not detected = 3679746) STREPTOCOCCUS AGALACTIAE Not detected Not detected (GROUP B) (test code = 3119905) STREPTOCOCCUS PNEUMONIAE Not detected Not detected (test code = 3499570) STREPTOCOCCUS PYOGENES Not detected Not detected (GROUP A) (test code = 0171255) ACINETOBACTER BAUMANNII Not detected Not detected (test code = 9793349) HAEMOPHILUS INFLUENZAE Not detected Not detected (test code = 1525819) NEISSERIA MENINGITIDIS Not detected Not detected (test code = 0258496) ENTEROBACTERIACEAE (test Not detected Not detected code = 0849530) ENTEROBACTER CLOACOE Not detected Not detected COMPLEX (test code = 3206662) KLEBSIELLA OXYTOCA (test Not detected Not detected code = 5115207) KLEBSIELLA PNEUMONIAE Not detected Not detected (test code = 1650) PROTEUS (test code = Not detected Not detected 4842098) SERRATIA MARCESCENS Not detected Not detected (test code = 9866181) STACEY ALBICANS (test Not detected Not detected code = 1294299) STACEY GLABRATA (test Not detected Not detected code = 6454277) STACEY KRUSEI (test Not detected Not detected code = 3714165) STACEY PARAPSILOSIS Not detected Not detected (test code = 0299814) STACEY TROPICALIS (test Not detected Not detected code = 3471699) ESCHERICHIA COLI (test Not detected Not detected code = 9869383) METHICILLIN-RESISTANCE Detected Not detected A Note: Antimicrobial GENE (test code = resistance can 0437786) occur via multi ple mechanisms. A N ot Detected result for the [employer]Array antimicrobial resistance gene assays does not indicate antimicrobial susceptibility. Subculturing is required for species identification and susceptibility testing of isolates. VANCOMYCIN-RESISTANCE GENE (test code = 0959692) CARBAPENEM-RESISTANCE GENE (test code = 7685955) ENTEROCOCCUS-BEAKER Not detected Not detected (test code = 5381813) PSEUDOMONAS Not detected Not detected AERUGINOSA-BEAKER (test code = 0285387) Other bacteria and resistance markers not targeted by this PCR panel cannot be excluded; therefore clinical correlation and follow up of serology, culture results, and other molecular studies is required. The results are not intended to be used as the sole means for clinical diagnosis or patient management decisions. This sample was tested at the [facility] using the [employer] Blood Culture ID Panel. It is FDA cleared and has been verified and approved by the [facility] for clinical use. This laboratory is CLIA-certified and College ofAmerican Pathologists (CAP)-accredited to perform high complexity testing.HEMOGLOBIN AND [id number] 17:52:48 Test Item Value Reference Range Interpretation Comments HEMOGLOBIN (BEAKER) (test code = 7.2 GM/DL 13.7-17.5 L 410) HEMATOCRIT (BEAKER) (test code = 24.6 % 40.1-51.0 L 411) Filler Block Inserter Remover ID - [id number] 12:45:54 Test Item Value Reference Range Interpretation Comments AMYLASE (BEAKER) (test code = 349) 32 U/L 25-125 Filler Block Inserter Remover ID - PIAYA LPOCT-GLUCOSE [id number] 12:21:36 Test Item Value Reference Range Interpretation Comments POC-GLUCOSE METER 89 mg/dL 70-110 : TESTED A T [facility] 6720 (BEAKER) (test code = [place] [facility], 1538) [address]: Filler Block Inserter Remover/Techni dakota ID = [id number] for Milena Wei POCT-GLUCOSE [id number] 07:58:39 Test Item Value Reference Range Interpretation Comments POC-GLUCOSE METER 101 mg/dL 70-110 : TESTED A T [facility] 6720 (BEAKER) (test code [facility], = 1538) [address]: Filler Block Inserter Remover/Techni dakota ID = [id number] for Martha Bell (CELLAVISION MANUAL DIFF)2021-09-28 06:59:01 Test Item Value Reference Range Interpretation Comments NEUTROPHILS - REL 89 % (CELLAVISION)(BEAKER) (test code = 2816) LYMPHOCYTES - REL 4 % (CELLAVISION)(BEAKER) (test code = 2817) MONOCYTES - REL 6 % (CELLAVISION)(BEAKER) (test code = 2818) BANDS - REL (CELLAVISION)(BEAKER) 1 % 0-10 (test code = 2826) NEUTROPHILS - ABS 8.01 K/ul 1.78-5.38 H (CELLAVISION)(BEAKER) (test code = 2830) LYMPHOCYTES - ABS 0.36 K/ul 1.32-3.57 L (CELLAVISION)(BEAKER) (test code = 2831) MONOCYTES - ABS 0.54 K/uL 0.30-0.82 (CELLAVISION)(BEAKER) (test code = 2832) BANDS - ABS (CELLAVISION)(BEAKER) 0.09 K/uL 0.00-0.80 (test code = 2840) TOTAL COUNTED (BEAKER) (test code 100 = 1351) WBC MORPHOLOGY (BEAKER) (test Normal code = 487) PLT MORPHOLOGY (BEAKER) (test Normal code = 486) POLYCHROMATOPHILLIC RBCS(BEAKER) 1+ few (test code = 478) HYPOCHROMIA (BEAKER) (test code = 1+ few 963) ANISOCYTOSIS (BEAKER) (test code 2+ moderate = 961) MICROCYTES (BEAKER) (test code = 2+ moderate 965) POIKILOCYTES (BEAKER) (test code 1+ few = 966) ELLIPTOCYTES (BEAKER) (test code 1+ few = 962) OVALOCYTES (BEAKER) (test code = 1+ few 477) TEAR DROP CELLS (BEAKER) (test 1+ few code = 481) ARTIFACT (CELLAVISION)(BEAKER) Present (test code = 3432) HELMET CELLS 1+ few (CELLAVISION)(BEAKER) (test code = 3434) PLATELET CONCENTRATION Adequate (CELLAVISION)(BEAKER) (test code = 3438) Filler Block Inserter Remover ID - [id number] ID - Rebecca Mikhail comments: Slide comments: CBC W/PLT COUNT & AUTO [id number] 06:59:00 Test Item Value Reference Range Interpretation Comments WHITE BLOOD CELL COUNT (BEAKER) 9.0 K/ L 3.5-10.5 (test code = 775) RED BLOOD CELL COUNT (BEAKER) 2.65 M/ L 4.63-6.08 L (test code = 761) HEMOGLOBIN (BEAKER) (test code = 6.0 GM/DL 13.7-17.5 LL 410) HEMATOCRIT (BEAKER) (test code = 20.4 % 40.1-51.0 L 411) MEAN CORPUSCULAR VOLUME (BEAKER) 77.0 fL 79.0-92.2 L (test code = 753) MEAN CORPUSCULAR HEMOGLOBIN 22.6 pg 25.7-32.2 L (BEAKER) (test code = 751) MEAN CORPUSCULAR HEMOGLOBIN CONC 29.4 GM/DL 32.3-36.5 L (BEAKER) (test code = 752) RED CELL DISTRIBUTION WIDTH 20.7 % 11.6-14.4 H (BEAKER) (test code = 412) PLATELET COUNT (BEAKER) (test 255 K/CU MM 150-450 code = 756) MEAN PLATELET VOLUME (BEAKER) 10.5 fL 9.4-12.4 (test code = 754) NUCLEATED RED BLOOD CELLS 0 /100 WBC 0-0 (BEAKER) (test code = 413) SARS-COV2/RT-PCR ([facility])2021-09-28 05:26:25 Test Item Value Reference Range Interpretation Comments SARS-COV2/RT-PCR Negative Negative The SARS-Co V-2 target (test code = nucleic acids a re not 1998294) detected in thi s specimen. Negative result s do not preclude SARS-C oV-2 infection and s hould not be used as the rio e basis for patient managem ent decisions. Nega tive results must be combine d with clinical observ ations, patient history , and epidemiological information. A false negativ e result may occur if a spec imen is improperly anurag ected, transported or handled. This SARS CoV-2 test is a rapid, real-jossue e RT-PCR test intended for th e qualitative detection of nu cleic acid from SARS-CoV-2 in a nasopharyngeal swab specimen collected from individuals suspected of CO VID-19 by their healthcar e provider. This test has been authorized by FDA under an EUA for use by authorized laboratories. This test is only authorized for the duration of the declaration that circumstances exist justifying the authorization of emergency use of in vitro diagnostic tests for detection and/or diagnosis of COVID-19 under Section 564(b)(1) of the Federal Food, Drug and Cosmetic Act, 21 U.S.C. 360bbb- 3(b)(1), unless the authorization is terminated or revoked sooner. Fact Sheet for Healthcare Providers: https://www.[employer]/Documents/Xpert%20Xpress%20SARS%20CoV-2/Fact%20Sheets/3023802%20SARS-COV -2%20HEALTHCARE%20PROVIDERS%20FACT%20SHEET.pdf Fact Sheet for Healthcare Patients: https://www.[employer]/Documents/Xpert %20Xpress%20SARS%20CoV-2/Fact%20Sheets/3023801%09PUQR-BQH-5%20PATIENT%20FACT%20 SHEET.pdfBASIC METABOLIC [id number] 05:15:58 Test Item Value Reference Range Interpretation Comments SODIUM (BEAKER) 133 meq/L 136-145 L (test code = 381) POTASSIUM (BEAKER) 4.3 meq/L 3.5-5.1 (test code = 379) CHLORIDE (BEAKER) 97 meq/L 98-107 L (test code = 382) CO2 (BEAKER) (test 30 meq/L 22-29 H code = 355) BLOOD UREA NITROGEN 13 mg/dL 7-21 (BEAKER) (test code = 354) CREATININE (BEAKER) 0.66 mg/dL 0.57-1.25 (test code = 358) GLUCOSE RANDOM 112 mg/dL 70-105 H (BEAKER) (test code = 652) CALCIUM (BEAKER) 7.7 mg/dL 8.4-10.2 L (test code = 697) EGFR (BEAKER) (test 154 mL/min/1.73 ESTIM ATED GFR IS code = 1092) sq m NOT ACCURATE CREATININE CLEARANCE IN PREDICTING GLOMERULAR FILTRATION RATE . ESTIMATED GFR I S NOT APPLICABLE FOR DIALYSIS PATIEN TS. Filler Block Inserter Remover ID - [id number] 04:33:33 Test Item Value Reference Range Interpretation Comments PHOSPHORUS (BEAKER) (test code = 4.1 mg/dL 2.3-4.7 604) Filler Block Inserter Remover ID - BSHEPATIC FUNCTION [id number] 04:33:33 Test Item Value Reference Range Interpretation Comments TOTAL PROTEIN (BEAKER) (test code = 5.3 gm/dL 6.0-8.3 L 770) ALBUMIN (BEAKER) (test code = 1145) 2.1 g/dL 3.5-5.0 L BILIRUBIN TOTAL (BEAKER) (test code 0.2 mg/dL 0.2-1.2 = 377) BILIRUBIN DIRECT (BEAKER) (test 0.2 mg/dL 0.1-0.5 code = 706) ALKALINE PHOSPHATASE (BEAKER) (test 80 U/L 40-150 code = 346) AST (SGOT) (BEAKER) (test code = 16 U/L 5-34 353) ALT (SGPT) (BEAKER) (test code = 11 U/L 6-55 347) Filler Block Inserter Remover ID - [id number] 04:33:32 Test Item Value Reference Range Interpretation Comments MAGNESIUM (BEAKER) (test code = 1.5 mg/dL 1.6-2.6 L 627) Filler Block Inserter Remover ID - BSLACTIC ACID, [id number] 04:27:30 Test Item Value Reference Range Interpretation Comments LACTATE BLOOD VENOUS (2) (BEAKER) 1.04 mmol/L 0.50-2.20 (test code = 2872) Filler Block Inserter Remover ID - [id number] [id number] 04:23:49 Test Item Value Reference Range Interpretation Comments PROTIME (GENEVA) 15.5 seconds 11.9-14.2 H (test code = 759) INR (BEAKER) (test 1.25 See_Comment [Automat ed message] code = 370) The system [employer] generated this result transmitted ref erence range: <=5.90. The reference range was not used to int erpret this result as normal/abnormal . RECOMMENDED COUMADIN/WARFARIN INR THERAPY RANGESSTANDARD DOSE: 2.0 - 3.0 Includes: PROPHYLAXIS forvenous thrombosis, systemic embolization; TREATMENT for venous thrombosis and/or pulmonary embolus.HIGH RISK: Target INR is 2.5-3.5 for patients with mechanical heart valves.CT, [id number] 00:01:00Unlisted Reason for Exam - Click Yes and Enter Reason Below->YesUnlisted Reason for Exam->necrotizing panc on OSH imagingIs this for enterography?->NoWill this procedure require oral contrast?->No [facility] : 2000 Sex: MFINAL REPORT TECHNIQUE: CT of the abdomen and pelvis WITH intravenous contrast and WITHOUT oral contrast. Dose modulation, iterative reconstruction, and/or weight-based adjustment of the mA/kV was utilized to reduce the radiation dose to as low as reasonably achievable. INDICATION: Unlisted Reason for Examnecrotizing panc on OSH imaging. COMPARISON: 09/10/2021. FINDINGS: LOWER THORAX: There is moderate bibasilar atelectasis, greater on the right. HEPATOBILIARY: No focal hepatic lesions. There is fatty infiltration of liver parenchyma. Gallbladder is unremarkable. No biliary ductal dilatation.SPLEEN: Splenomegaly with length of 14.8 cm.PANCREAS: Large volume of peripancreatic fluid containing interspersed ectopic gas new compared to prior. There is organizing collection containing gas in the right lower quadrant inferior to the right hepatic lobe that has measurements of 12.6 x 7.1 x 13.2 cm and an additional collection possibly in continuity in the right upper quadrant abutting the liver with measurements of 14.0 x 7.9 x 10.0 cm. There is a collection containing air-fluid level adjacent to several loops of small bowel in the left upper quadrant anteriorly with measurements of 4.2 x 3.7 x 3.8 cm. Collection left abdomen abutting the spleen extending towards the left paracolic gutter with measurements of 4.2 x 3.8 x 10.2 cm. Remainder of the fluid does not appear organized. There is no ductal dilatation. ADRENALS: No adrenal nodules.KIDNEYS/URETERS: No hydronephrosis, stones, or masses.PELVIC ORGANS/BLADDER: Unremarkable. PERITONEUM/RETROPERITONEUM: As above.LYMPH NODES: No lymphadenopathy.VESSELS: Unremarkable. GI TRACT: No distention or wall thickening. Appendix not seen. No evidence of appendicitis. BONES AND SOFT TISSUES: No acute osseous abnormality. Soft tissues are unremarkable. IMPRESSION:Necrotizing pancreatitis with large volume of free fluid containing interspersed ectopic gas concerning for superimposed infection. There are organizing collections in the right upper and lower quadrants as well as the left upper quadrant compatible with developing walled off necrosis. Hepatic steatosis and splenomegaly. Signed: Gokul Encarnacion MDReport Verified Date/Time: 09/28/2021 00:01:32 (CELLAVISION MANUAL DIFF)2021-09-27 22:41:47 Test Item Value Reference Range Interpretation Comments NEUTROPHILS - REL 79 % (CELLAVISION)(BEAKER) (test code = 2816) LYMPHOCYTES - REL 2 % (CELLAVISION)(BEAKER) (test code = 2817) MYELOCYTES - REL 1 % 0-0 H (CELLAVISION)(BEAKER) (test code = 2822) BANDS - REL (CELLAVISION)(BEAKER) 18 % 0-10 H (test code = 2826) NEUTROPHILS - ABS 9.32 K/ul 1.78-5.38 H (CELLAVISION)(BEAKER) (test code = 2830) LYMPHOCYTES - ABS 0.24 K/ul 1.32-3.57 L (CELLAVISION)(BEAKER) (test code = 2831) MYELOCYTES-ABS 0.12 K/uL 0.00-0.00 H (CELLAVISION)(BEAKER) (test code = 2837) BANDS - ABS (CELLAVISION)(BEAKER) 2.12 K/uL 0.00-0.80 H (test code = 2840) TOTAL COUNTED (BEAKER) (test code 100 = 1351) WBC MORPHOLOGY (BEAKER) (test Normal code = 487) GIANT PLATELETS (BEAKER) (test Present code = 313) HYPOCHROMIA (BEAKER) (test code = 2+ moderate 963) ANISOCYTOSIS (BEAKER) (test code 3+ many = 961) MICROCYTES (BEAKER) (test code = 3+ many 965) POIKILOCYTES (BEAKER) (test code 1+ few = 966) OVALOCYTES (BEAKER) (test code = 1+ few 477) TEAR DROP CELLS (BEAKER) (test 1+ few code = 481) ARTIFACT (CELLAVISION)(BEAKER) Present (test code = 3432) PLATELET CONCENTRATION Adequate (CELLAVISION)(BEAKER) (test code = 3438) Filler Block Inserter Remover ID - Romelia Dashawn comments: Slide comments:COMPREHENSIVE METABOLIC [id number] 22:28:04 Test Item Value Reference Range Interpretation Comments TOTAL PROTEIN 5.9 gm/dL 6.0-8.3 L (BEAKER) (test code = 770) ALBUMIN (BEAKER) 2.4 g/dL 3.5-5.0 L (test code = 1145) ALKALINE PHOSPHATASE 95 U/L 40-150 (BEAKER) (test code = 346) BILIRUBIN TOTAL 0.3 mg/dL 0.2-1.2 (BEAKER) (test code = 377) SODIUM (BEAKER) (test 130 meq/L 136-145 L code = 381) POTASSIUM (BEAKER) 4.1 meq/L 3.5-5.1 (test code = 379) CHLORIDE (BEAKER) 94 meq/L 98-107 L (test code = 382) CO2 (BEAKER) (test 25 meq/L 22-29 code = 355) BLOOD UREA NITROGEN 15 mg/dL 7-21 (BEAKER) (test code = 354) CREATININE (BEAKER) 0.70 mg/dL 0.57-1.25 (test code = 358) GLUCOSE RANDOM 142 mg/dL 70-105 H (BEAKER) (test code = 652) CALCIUM (BEAKER) 8.4 mg/dL 8.4-10.2 (test code = 697) AST (SGOT) (BEAKER) 16 U/L 5-34 (test code = 353) ALT (SGPT) (BEAKER) 13 U/L 6-55 (test code = 347) EGFR (BEAKER) (test 144 ESTIMATE D GFR IS code = 1092) mL/min/1.73 sq NOT ACCURA TE m CREATININE CLEARANCE IN PREDICTING GLOMERULAR FILTRATION RATE . ESTIMATED GFR I S NOT APPLICABLE FOR DIALYSIS PATIEN TS. Filler Block Inserter Remover ID - [id number] 22:28:04 Test Item Value Reference Range Interpretation Comments LIPASE (BEAKER) (test code = 749) 24 U/L 8-78 Filler Block Inserter Remover ID - BSLACTIC ACID, [id number] 22:22:02 Test Item Value Reference Range Interpretation Comments LACTATE BLOOD VENOUS 1.20 mmol/L 0.50-2.20 Specime n slightly (2) (BEAKER) (test hemolyzed code = 0127) Filler Block Inserter Remover ID - BSPROTHROMBIN TIME/[id number] 22:18:27 Test Item Value Reference Range Interpretation Comments PROTIME (BEAKER) 15.2 seconds 11.9-14.2 H (test code = 759) INR (BEAKER) (test 1.22 See_Comment [Automat ed message] code = 370) The system [employer] generated this result transmitted ref erence range: <=5.90. The reference range was not used to int erpret this result as normal/abnormal . RECOMMENDED COUMADIN/WARFARIN INR THERAPY RANGESSTANDARD DOSE: 2.0 - 3.0 Includes: PROPHYLAXIS forvenous thrombosis, systemic embolization; TREATMENT for venous thrombosis and/or pulmonary embolus.HIGH RISK: Target INR is 2.5-3.5 for patients with mechanical heart valves.CBC W/PLT COUNT & AUTO DIFFERENTIAL 2021-09-27 22:11:15 Test Item Value Reference Range Interpretation Comments WHITE BLOOD CELL COUNT (BEAKER) 11.8 K/ L 3.5-10.5 H (test code = 775) RED BLOOD CELL COUNT (BEAKER) 2.95 M/ L 4.63-6.08 L (test code = 761) HEMOGLOBIN (BEAKER) (test code = 6.7 GM/DL 13.7-17.5 L 410) HEMATOCRIT (BEAKER) (test code = 23.1 % 40.1-51.0 L 411) MEAN CORPUSCULAR VOLUME (BEAKER) 78.3 fL 79.0-92.2 L (test code = 753) MEAN CORPUSCULAR HEMOGLOBIN 22.7 pg 25.7-32.2 L (BEAKER) (test code = 751) MEAN CORPUSCULAR HEMOGLOBIN CONC 29.0 GM/DL 32.3-36.5 L (BEAKER) (test code = 752) RED CELL DISTRIBUTION WIDTH 20.3 % 11.6-14.4 H (BEAKER) (test code = 412) PLATELET COUNT (BEAKER) (test 287 K/CU MM 150-450 code = 756) MEAN PLATELET VOLUME (BEAKER) 10.7 fL 9.4-12.4 (test code = 754) NUCLEATED RED BLOOD CELLS 0 /100 WBC 0-0 (BEAKER) (test code = 413) RAD, CHEST, 1 VIEW, NON [id number] 21:03:00Reason for exam:->ABNORMAL IMAGING RESULTShould this be performed at the bedside?->Yes [facility] : 2000 Sex: MFINAL REPORT TECHNIQUE: Frontal view of the chest. INDICATION: ABNORMA L IMAGING RESULT. COMPARISON: 09/10/2021. FINDINGS: LINES/TUBES: None. HEART AND MEDIASTINUM: Cardiomediastinal contour is within normal limits. LUNGS: The lungs are well inflated and clear. No consolidation or pulmonary edema. PLEURA: No pneumothorax. No significant pleural effusion. SOFT TISSUES AND BONES: Unremarkable. IMPRESSION:No acute cardiopulmonary process. Signed: Archana Holloway MDRepsaint luke[facility] Verified Date/Time: 09/27/2021 21:03:24 - CT ABDOMEN W W/O [id number] 15:48:00 [facility] 2000 Sex: M FAX: Willard Vaughn Jr [phone] [place]: St: [facility] 2000 Age/S: 21[facility]M [address] Unit: [id number] Loc: [place] [address] Phys: Willard Crouch Jr, MD Acct: [id number] Dis Date: Status: REG CLI PHONE #: [phone] Exam Date: 09/27/2021 1530 FAX #: [phone] Reason: PANCREATITIS EXAMS: CPT CODE: [id number] CT ABDOMEN W W/O CONTRAST 24072 EXAM: CT ABDOMEN WITH AND WITHOUT CONTRAST INDICATION: History of chronic pancreatitis with acute pain, fever. History of lupus LOCATION: B2 COMPARISON: None TECHNIQUE: CT of the abdomen was performed before and after 95 mL of Isovue-[address] scans are performedusing radiation dose reduction technique. Technical factors are evaluated and adjusted to insure appropriate moderation of exposure. Automated dose management technology is applied to adjust the radiation dose to minimize exposure while achieving a diagnostic quality image. Total DLP of 1652 mGy-cm. GFR greater than 60 FINDINGS: Lung bases: B ibasilar atelectasis. The heart is slightly enlarged with small pericardial effusion. Hepatobiliary: Markedly fatty liver. No obvious liver mass. Multiple splenic granulomas. No calcified gallstones or biliary obstruction. Pancreas: The pancreas is slightly h eterogeneous in enhancement with irregular margins. Extensive enhancing peripancreatic fluid with large amount of extraluminal air is seen extending into the lesser sac and insinuating along both paracolic gutters. Intraloop fluid and pelvic fluid present. A small air-fluid l evel is seen in the subhepatic space. Adrenals: Unremarkable. : No renal mass or hydronephrosis. GI: Centralized bowel without bowel obstruction or pneumoperitoneum. No bowel-containing hernias. Retroperitoneum and pelvis: Aorta and IVC appear patent. Bones and soft tissues: No acute osseous abnormalities. Mild dependent anasarca. PAGE 1 Signed Report (CONTINUED) FAX: Willard Vaughn Jr [phone] [place]: St: [facility] 2000 Age/S: 21/M [address] Unit: [id number] Loc: [place] [address] Phys: Ping Crouch MD Acct: [id number] Dis Date: Status: REG CLI PHONE #: [phone] Exam Date: 09/27/2021 1530 FAX #: [phone] Reason: PANCREATITISEXAMS: CPT CODE: [id number] CT ABDOMEN W W/O CONTRAST 89011 <Continued> IMPRESSION: 1. Slight heterogeneous enhancement of the pancreas with disproportionate amount of extensive enhancing loculated fluid and large amount of extraluminal air in the abdomen and upper pelvis.Air-fluid level in the right paracolic gutter with interloop fluid. FINDINGS are likely a combination of necrotizing pancreatitis with peritonitis. 2. No evidence for bowel obstruction or pneumoperitoneum. 3. Bibasilar atelectasis and small pericardial effusion. 4. Markedly fatty liver. FINDINGS were called to Dr. Pepper by Dr. Madison at 3:45 PM. FOR INTERNAL CODING PURPOSES ONLY RESULT CODE: CVR at 3206 Reported and signed by: Vandana Madison MD CC: Willard Crouch Jr Technologist: LAMBERTO ARTEAGA Trnscrd Dt/Tm: 09/27/2021 (4838) Adalberto.PXC Orig Print D/T: S: 09/27/2021 (5491 PAGE 2 Signed ReportBEDSIDE [id number] 15:20:00 Test Item Value Reference Range Interpretation Comments BEDSIDE CREATININE (test code = 0.7 MG/DL 0.5-1.0 N CREATBED) FECAL [id number] 22:49:02 Test Item Value Reference Range Interpretation Comments FECAL LEUKOCYTES No fecal leukocytes No fecal leukocytes (BEAKER) (test code = seen seen 992) POCT-GLUCOSE [id number] 16:36:44 Test Item Value Reference Range Interpretation Comments POC-GLUCOSE METER 204 mg/dL 70-110 H : TESTED A T [facility] 6720 (BEAKER) (test code = [facility], 1538) 66440: Filler Block Inserter Remover/Techni dakota ID = [id number] for [place], Susanna POCT-GLUCOSE [id number] 11:38:42 Test Item Value Reference Range Interpretation Comments POC-GLUCOSE METER 122 mg/dL 70-110 H : TESTED A T [facility] 6720 (BEAKER) (test code = [facility], 1538) 16464: Filler Block Inserter Remover/Techni dakota ID = [id number] for [place], Susanna BASIC METABOLIC [id number] 08:51:41 Test Item Value Reference Range Interpretation Comments SODIUM (BEAKER) 132 meq/L 136-145 L (test code = 381) POTASSIUM (BEAKER) 4.2 meq/L 3.5-5.1 (test code = 379) CHLORIDE (BEAKER) 94 meq/L 98-107 L (test code = 382) CO2 (BEAKER) (test 31 meq/L 22-29 H code = 355) BLOOD UREA NITROGEN 11 mg/dL 7-21 (BEAKER) (test code = 354) CREATININE (BEAKER) 0.54 mg/dL 0.57-1.25 L (test code = 358) GLUCOSE RANDOM 115 mg/dL 70-105 H (BEAKER) (test code = 652) CALCIUM (BEAKER) 8.3 mg/dL 8.4-10.2 L (test code = 697) EGFR (BEAKER) (test 194 mL/min/1.73 ESTIM ATED GFR IS code = 1092) sq m NOT ACCURATE CREATININE CLEARANCE IN PREDICTING GLOMERULAR FILTRATION RATE . ESTIMATED GFR I S NOT APPLICABLE FOR DIALYSIS PATIEN TS. Filler Block Inserter Remover ID - DBPOCT-GLUCOSE [id number] 07:42:10 Test Item Value Reference Range Interpretation Comments POC-GLUCOSE METER 100 mg/dL 70-110 : TESTED A T [facility] 6720 (BEAKER) (test code = [facility], 1538) 41580: Filler Block Inserter Remover/Techni dakota ID = [id number] for [place], Susanna [id number] 06:05:53 Test Item Value Reference Range Interpretation Comments MAGNESIUM (BEAKER) (test code = 1.5 mg/dL 1.6-2.6 L 627) Filler Block Inserter Remover ID - DBPOCT-GLUCOSE [id number] 22:10:06 Test Item Value Reference Range Interpretation Comments POC-GLUCOSE METER 226 mg/dL 70-110 H : TESTED A T [facility] 6720 (BEAKER) (test code = [facility], 1538) 21551: Filler Block Inserter Remover/Techni dakota ID = [id number] for Guan[place]ito Banks (contract), Maribel i POCT-GLUCOSE [id number] 17:25:35 Test Item Value Reference Range Interpretation Comments POC-GLUCOSE METER 167 mg/dL 70-110 H : TESTED A T [facility] 6720 (BEAKER) (test code = [facility], 1538) 10652: Filler Block Inserter Remover/Techni dakota ID = [id number] for Susanna Whaley POCT-GLUCOSE [id number] 11:53:31 Test Item Value Reference Range Interpretation Comments POC-GLUCOSE METER 84 mg/dL 70-110 : TESTED A T [facility] 6720 (BEAKER) (test code = [facility], 1538) 25895: Filler Block Inserter Remover/Techni dakota ID = [id number] for Susanna Light POCT-GLUCOSE [id number] 07:47:58 Test Item Value Reference Range Interpretation Comments POC-GLUCOSE METER 91 mg/dL 70-110 : TESTED A T [facility] 6720 (BEAKER) (test code = [facility], 1538) 23513: Filler Block Inserter Remover/Techni dakota ID = [id number] for Susanna Light [id number] 05:26:53 Test Item Value Reference Range Interpretation Comments FERRITIN (BEAKER) (test code = 1277.07 ng/mL 5.00-275.00 H 361) Filler Block Inserter Remover ID - ALVINA [id number] 05:16:29 Test Item Value Reference Range Interpretation Comments MAGNESIUM (BEAKER) 1.5 mg/dL 1.6-2.6 L Specimen slightly (test code = 627) hemolyzed Filler Block Inserter Remover ID - BSCOMPREHENSIVE METABOLIC [id number] 05:16:29 Test Item Value Reference Range Interpretation Comments TOTAL PROTEIN 5.8 gm/dL 6.0-8.3 L Specimen sligh tly (BEAKER) (test code = hemoly zed 770) ALBUMIN (BEAKER) 2.2 g/dL 3.5-5.0 L Specimen sl ightly (test code = 1145) hemolyzed ALKALINE PHOSPHATASE 92 U/L 40-150 (BEAKER) (test code = 346) BILIRUBIN TOTAL 0.3 mg/dL 0.2-1.2 Specimen sli ghtly (BEAKER) (test code = hemoly zed 377) SODIUM (BEAKER) (test 137 meq/L 136-145 code = 381) POTASSIUM (BEAKER) 4.1 meq/L 3.5-5.1 Specimen slightly (test code = 379) hemolyzed CHLORIDE (BEAKER) 97 meq/L 98-107 L (test code = 382) CO2 (BEAKER) (test 28 meq/L 22-29 code = 355) BLOOD UREA NITROGEN 14 mg/dL 7-21 (BEAKER) (test code = 354) CREATININE (BEAKER) 0.58 mg/dL 0.57-1.25 Specimen slightly (test code = 358) hemolyzed GLUCOSE RANDOM 115 mg/dL 70-105 H (BEAKER) (test code = 652) CALCIUM (BEAKER) 8.5 mg/dL 8.4-10.2 (test code = 697) AST (SGOT) (BEAKER) 23 U/L 5-34 Specimen slightly (test code = 353) hemolyzed ALT (SGPT) (BEAKER) 15 U/L 6-55 Specimen slightly (test code = 347) hemolyzed EGFR (BEAKER) (test 179 ESTIMATE D GFR IS code = 1092) mL/min/1.73 sq NOT ACCURA TE m CREATININE CLEARANCE IN PREDICTING GLOMERULAR FILTRATION RATE . ESTIMATED GFR I S NOT APPLICABLE FOR DIALYSIS PATIEN TS. Filler Block Inserter Remover ID - BSCBC W/PLT COUNT & AUTO [id number] 05:09:25 Test Item Value Reference Range Interpretation Comments WHITE BLOOD CELL COUNT (BEAKER) 12.5 K/ L 3.5-10.5 H (test code = 775) RED BLOOD CELL COUNT (BEAKER) 2.69 M/ L 4.63-6.08 L (test code = 761) HEMOGLOBIN (BEAKER) (test code = 7.4 GM/DL 13.7-17.5 L 410) HEMATOCRIT (BEAKER) (test code = 21.3 % 40.1-51.0 L 411) MEAN CORPUSCULAR VOLUME (BEAKER) 79.2 fL 79.0-92.2 (test code = 753) MEAN CORPUSCULAR HEMOGLOBIN 27.5 pg 25.7-32.2 (BEAKER) (test code = 751) MEAN CORPUSCULAR HEMOGLOBIN CONC 34.7 GM/DL 32.3-36.5 (BEAKER) (test code = 752) RED CELL DISTRIBUTION WIDTH 20.9 % 11.6-14.4 H (BEAKER) (test code = 412) PLATELET COUNT (BEAKER) (test 219 K/CU MM 150-450 code = 756) MEAN PLATELET VOLUME (BEAKER) 10.0 fL 9.4-12.4 (test code = 754) NUCLEATED RED BLOOD CELLS 0 /100 WBC 0-0 (BEAKER) (test code = 413) NEUTROPHILS RELATIVE PERCENT 86 % (BEAKER) (test code = 429) LYMPHOCYTES RELATIVE PERCENT 9 % (BEAKER) (test code = 430) MONOCYTES RELATIVE PERCENT 3 % (BEAKER) (test code = 431) EOSINOPHILS RELATIVE PERCENT 0 % (BEAKER) (test code = 432) BASOPHILS RELATIVE PERCENT 0 % (BEAKER) (test code = 437) NEUTROPHILS ABSOLUTE COUNT 10.80 K/ L 1.78-5.38 H (BEAKER) (test code = 670) LYMPHOCYTES ABSOLUTE COUNT 1.15 K/ L 1.32-3.57 L (BEAKER) (test code = 414) MONOCYTES ABSOLUTE COUNT (BEAKER) 0.37 K/ L 0.30-0.82 (test code = 415) EOSINOPHILS ABSOLUTE COUNT 0.04 K/ L 0.04-0.54 (BEAKER) (test code = 416) BASOPHILS ABSOLUTE COUNT (BEAKER) 0.03 K/ L 0.01-0.08 (test code = 417) IMMATURE GRANULOCYTES-RELATIVE 1 % 0-1 PERCENT (BEAKER) (test code = 2801) POCT-GLUCOSE [id number] 23:08:33 Test Item Value Reference Range Interpretation Comments POC-GLUCOSE METER 180 mg/dL 70-110 H : TESTED Daphne Miller [facility] 6720 (BEAKER) (test code = [facility] [place], 1538) 01411: Filler Block Inserter Remover/Techni dakota ID = [id number] for CAROLINA LENZ POCT-GLUCOSE [id number] 15:54:55 Test Item Value Reference Range Interpretation Comments POC-GLUCOSE METER 302 mg/dL 70-110 H : TESTED A T [facility] 6720 (BEAKER) (test code = [facility], 1538) 43849: Filler Block Inserter Remover/Techni dakota ID = [id number] for Kevin Smith POCT-GLUCOSE [id number] 11:59:06 Test Item Value Reference Range Interpretation Comments POC-GLUCOSE METER 118 mg/dL 70-110 H : TESTED A T [facility] 6720 (BEAKER) (test code = [facility], 1538) 31388: Filler Block Inserter Remover/Techni dakota ID = [id number] for Kevin Smith POCT-GLUCOSE [id number] 08:15:03 Test Item Value Reference Range Interpretation Comments POC-GLUCOSE METER 153 mg/dL 70-110 H : TESTED A T [facility] 6720 (BEAKER) (test code = [facility], 1538) 02520: Filler Block Inserter Remover/Techni dakota ID = [id number] for Kevin Smith [id number] 05:39:21 Test Item Value Reference Range Interpretation Comments FERRITIN (BEAKER) (test code = 2065.19 ng/mL 5.00-275.00 H 361) Filler Block Inserter Remover ID - ALVINA MOperator ID - ALVINA [id number] 04:33:07 Test Item Value Reference Range Interpretation Comments MAGNESIUM (BEAKER) (test code = 1.7 mg/dL 1.6-2.6 627) Filler Block Inserter Remover ID - ALVINA MCOMPREHENSIVE METABOLIC [id number] 04:33:06 Test Item Value Reference Range Interpretation Comments TOTAL PROTEIN 5.8 gm/dL 6.0-8.3 L (BEAKER) (test code = 770) ALBUMIN (BEAKER) 2.3 g/dL 3.5-5.0 L (test code = 1145) ALKALINE PHOSPHATASE 91 U/L 40-150 (BEAKER) (test code = 346) BILIRUBIN TOTAL 0.2 mg/dL 0.2-1.2 (BEAKER) (test code = 377) SODIUM (BEAKER) (test 138 meq/L 136-145 code = 381) POTASSIUM (BEAKER) 3.6 meq/L 3.5-5.1 (test code = 379) CHLORIDE (BEAKER) 97 meq/L 98-107 L (test code = 382) CO2 (BEAKER) (test 29 meq/L 22-29 code = 355) BLOOD UREA NITROGEN 20 mg/dL 7-21 (BEAKER) (test code = 354) CREATININE (BEAKER) 0.76 mg/dL 0.57-1.25 (test code = 358) GLUCOSE RANDOM 150 mg/dL 70-105 H (BEAKER) (test code = 652) CALCIUM (BEAKER) 8.7 mg/dL 8.4-10.2 (test code = 697) AST (SGOT) (BEAKER) 21 U/L 5-34 (test code = 353) ALT (SGPT) (BEAKER) 19 U/L 6-55 (test code = 347) EGFR (BEAKER) (test 131 ESTIMATE D GFR IS code = 1092) mL/min/1.73 sq NOT ACCURA TE m CREATININE CLEARANCE IN PREDICTING GLOMERULAR FILTRATION RATE . ESTIMATED GFR I S NOT APPLICABLE FOR DIALYSIS PATIEN TS. Filler Block Inserter Remover ID - ALVINA MCBC W/PLT COUNT & AUTO [id number] 04:05:50 Test Item Value Reference Range Interpretation Comments WHITE BLOOD CELL COUNT (BEAKER) 15.0 K/ L 3.5-10.5 H (test code = 775) RED BLOOD CELL COUNT (BEAKER) 3.27 M/ L 4.63-6.08 L (test code = 761) HEMOGLOBIN (BEAKER) (test code = 7.4 GM/DL 13.7-17.5 L 410) HEMATOCRIT (BEAKER) (test code = 24.8 % 40.1-51.0 L 411) MEAN CORPUSCULAR VOLUME (BEAKER) 75.8 fL 79.0-92.2 L (test code = 753) MEAN CORPUSCULAR HEMOGLOBIN 22.6 pg 25.7-32.2 L (BEAKER) (test code = 751) MEAN CORPUSCULAR HEMOGLOBIN CONC 29.8 GM/DL 32.3-36.5 L (BEAKER) (test code = 752) RED CELL DISTRIBUTION WIDTH 21.1 % 11.6-14.4 H (BEAKER) (test code = 412) PLATELET COUNT (BEAKER) (test 297 K/CU MM 150-450 code = 756) MEAN PLATELET VOLUME (BEAKER) 10.4 fL 9.4-12.4 (test code = 754) NUCLEATED RED BLOOD CELLS 0 /100 WBC 0-0 (BEAKER) (test code = 413) NEUTROPHILS RELATIVE PERCENT 88 % (BEAKER) (test code = 429) LYMPHOCYTES RELATIVE PERCENT 7 % (BEAKER) (test code = 430) MONOCYTES RELATIVE PERCENT 3 % (BEAKER) (test code = 431) EOSINOPHILS RELATIVE PERCENT 0 % (BEAKER) (test code = 432) BASOPHILS RELATIVE PERCENT 0 % (BEAKER) (test code = 437) NEUTROPHILS ABSOLUTE COUNT 13.20 K/ L 1.78-5.38 H (BEAKER) (test code = 670) LYMPHOCYTES ABSOLUTE COUNT 1.10 K/ L 1.32-3.57 L (BEAKER) (test code = 414) MONOCYTES ABSOLUTE COUNT (BEAKER) 0.51 K/ L 0.30-0.82 (test code = 415) EOSINOPHILS ABSOLUTE COUNT 0.05 K/ L 0.04-0.54 (BEAKER) (test code = 416) BASOPHILS ABSOLUTE COUNT (BEAKER) 0.01 K/ L 0.01-0.08 (test code = 417) IMMATURE GRANULOCYTES-RELATIVE 1 % 0-1 PERCENT (BEAKER) (test code = 2801) POCT-GLUCOSE [id number] 22:26:51 Test Item Value Reference Range Interpretation Comments POC-GLUCOSE METER 263 mg/dL 70-110 H : TESTED A T [facility] 6720 (BEAKER) (test code = [facility], 153) 17038: Filler Block Inserter Remover/Techni dakota ID = [id number] for Mayte xiomarajevon Cherry POCT-GLUCOSE [id number] 17:52:33 Test Item Value Reference Range Interpretation Comments POC-GLUCOSE METER 320 mg/dL 70-110 H : TESTED A T [facility] 6720 (BEAKER) (test code [facility], = 1538) 16400: Filler Block Inserter Remover/Techni dakota ID = [id number] for SD GALLO [id number] 16:04:21 Test Item Value Reference Range Interpretation Comments MAGNESIUM (BEAKER) (test code = 1.6 mg/dL 1.6-2.6 627) Filler Block Inserter Remover ID - BSPOCT-GLUCOSE [id number] 13:44:43 Test Item Value Reference Range Interpretation Comments POC-GLUCOSE METER 243 mg/dL 70-110 H : TESTED A T [facility] 6720 (BEAKER) (test code [facility], = 1538) 35035: Filler Block Inserter Remover/Techni dakota ID = [id number] for SD GALLO ANTI-DNA [id number] 12:19:23 Test Item Value Reference Range Interpretation Comments ANTI-DNA TITER (BEAKER) (test code = :80 1553) DOUBLE-STRANDED DNA (DSDNA) [id number] 12:19:05 Test Item Value Reference Range Interpretation Comments ANTI-DNA DS (BEAKER) (test code = Positive Negative 1055) SARS-COV2/RT-PCR ([facility])2021-09-19 10:54:11 Test Item Value Reference Range Interpretation Comments SARS-COV2/RT-PCR (test Negative Not Detected, Negative, code = 3379994) See external report for linked test SARS-COV-2 PERFORMING LAB [facility] SH[facility] (test code = 0835826) Negative result for this test determines that SARS-CoV-2 RNA was not present in the specimen above the Limit of Detection (LOD). However, Negative results do not preclude SARS-CoV-2 infection and should not be used as the sole basis for treatment or patient management decisions. Negative results mustbe combined with clinical observations, patient history, and epidemiological information. A false negative result may occur if a specimen is improperly collected, transported or handled. A false negative result should be considered if patient's recent exposures or clinical presentation indicate that COVID-19 (SARS-CoV-2) is likely and diagnostic tests for other causes of illness are negative. Re-testing should be considered in cases of suspected false negatives.The limit of detection for this assay is 800 copies/mL.This SARS CoV-2 test is a real-time RT-PCR test intended for the qualitative detection of nucleic acid from SARS-CoV-2 in a nasopharyngeal swab specimen collected from individuals susp ected of COVID-19 by their healthcare provider.This test has not been Food and Drug Administration (FDA) cleared or approved. This is a modified version of an approved Emergency Use Authorization (EUA) and is in the process of review by the FDA. Once authorized by the FDA, the issued EUA will be effective until the declaration that circumstances exist justifying the authorization of the emergency use of in vitro diagnostic tests for detection and/or diagnosis of COVID-19 is terminated under Section 564(b)(2) of the Act or the EUA is revoked under Section 564(g) of the Act.Fact Sheet for Healthcare Providers:https://www.[employer]/sites/default/files/product/documents/Fact_Shee z_OV_Ihhatdcah_Qacb_DZEH-SbC-7.pdfFact Sheet for Healthcare Patients:https://www.[employer]/sites/default/files/product/ documents/Gpnx_Ifset_Xwxqarhv_Wicw_SODA-MoK-4.pdfPerforming Laboratory:[facility].[place], [place] [id number] METER 2021-09-19 08:21:15 Test Item Value Reference Range Interpretation Comments POC-GLUCOSE METER 228 mg/dL 70-110 H : TESTED A T [facility] 6720 (BEAKER) (test code [facility], = 1538) [id number]: Filler Block Inserter Remover/Techni dakota ID = [id number] for SD GALLO [id number] 08:08:54 Test Item Value Reference Range Interpretation Comments MAGNESIUM (BEAKER) (test code = 1.4 mg/dL 1.6-2.6 L 627) Filler Block Inserter Remover ID - BRANDIN CCOMPREHENSIVE METABOLIC [id number] 08:08:53 Test Item Value Reference Range Interpretation Comments TOTAL PROTEIN 5.3 gm/dL 6.0-8.3 L (BEAKER) (test code = 770) ALBUMIN (BEAKER) 2.1 g/dL 3.5-5.0 L (test code = 1145) ALKALINE PHOSPHATASE 88 U/L 40-150 (BEAKER) (test code = 346) BILIRUBIN TOTAL 0.3 mg/dL 0.2-1.2 (BEAKER) (test code = 377) SODIUM (BEAKER) (test 136 meq/L 136-145 code = 381) POTASSIUM (BEAKER) 4.0 meq/L 3.5-5.1 (test code = 379) CHLORIDE (BEAKER) 96 meq/L 98-107 L (test code = 382) CO2 (BEAKER) (test 28 meq/L 22-29 code = 355) BLOOD UREA NITROGEN 21 mg/dL 7-21 (BEAKER) (test code = 354) CREATININE (BEAKER) 0.68 mg/dL 0.57-1.25 (test code = 358) GLUCOSE RANDOM 158 mg/dL 70-105 H (BEAKER) (test code = 652) CALCIUM (BEAKER) 8.1 mg/dL 8.4-10.2 L (test code = 697) AST (SGOT) (BEAKER) 26 U/L 5-34 (test code = 353) ALT (SGPT) (BEAKER) 19 U/L 6-55 (test code = 347) EGFR (BEAKER) (test 149 ESTIMATE D GFR IS code = 1092) mL/min/1.73 sq NOT ACCURA TE m CREATININE CLEARANCE IN PREDICTING GLOMERULAR FILTRATION RATE . ESTIMATED GFR I S NOT APPLICABLE FOR DIALYSIS PATIEN TS. Filler Block Inserter Remover ID - BRANDIN [id number] 07:30:23 Test Item Value Reference Range Interpretation Comments FERRITIN (BEAKER) (test code = 2272.75 ng/mL 5.00-275.00 H 361) Filler Block Inserter Remover ID - SHREE WOperator ID - SHREE WCBC W/PLT COUNT & AUTO [id number] 06:07:16 Test Item Value Reference Range Interpretation Comments WHITE BLOOD CELL COUNT (BEAKER) 17.4 K/ L 3.5-10.5 H (test code = 775) RED BLOOD CELL COUNT (BEAKER) 3.11 M/ L 4.63-6.08 L (test code = 761) HEMOGLOBIN (BEAKER) (test code = 7.1 GM/DL 13.7-17.5 L 410) HEMATOCRIT (BEAKER) (test code = 23.5 % 40.1-51.0 L 411) MEAN CORPUSCULAR VOLUME (BEAKER) 75.6 fL 79.0-92.2 L (test code = 753) MEAN CORPUSCULAR HEMOGLOBIN 22.8 pg 25.7-32.2 L (BEAKER) (test code = 751) MEAN CORPUSCULAR HEMOGLOBIN CONC 30.2 GM/DL 32.3-36.5 L (BEAKER) (test code = 752) RED CELL DISTRIBUTION WIDTH 21.3 % 11.6-14.4 H (BEAKER) (test code = 412) PLATELET COUNT (BEAKER) (test 271 K/CU MM 150-450 code = 756) MEAN PLATELET VOLUME (BEAKER) 10.5 fL 9.4-12.4 (test code = 754) NUCLEATED RED BLOOD CELLS 0 /100 WBC 0-0 (BEAKER) (test code = 413) NEUTROPHILS RELATIVE PERCENT 91 % (BEAKER) (test code = 429) LYMPHOCYTES RELATIVE PERCENT 5 % (BEAKER) (test code = 430) MONOCYTES RELATIVE PERCENT 3 % (BEAKER) (test code = 431) EOSINOPHILS RELATIVE PERCENT 0 % (BEAKER) (test code = 432) BASOPHILS RELATIVE PERCENT 0 % (BEAKER) (test code = 437) NEUTROPHILS ABSOLUTE COUNT 15.82 K/ L 1.78-5.38 H (BEAKER) (test code = 670) LYMPHOCYTES ABSOLUTE COUNT 0.84 K/ L 1.32-3.57 L (BEAKER) (test code = 414) MONOCYTES ABSOLUTE COUNT (BEAKER) 0.57 K/ L 0.30-0.82 (test code = 415) EOSINOPHILS ABSOLUTE COUNT 0.01 K/ L 0.04-0.54 L (BEAKER) (test code = 416) BASOPHILS ABSOLUTE COUNT (BEAKER) 0.02 K/ L 0.01-0.08 (test code = 417) IMMATURE GRANULOCYTES-RELATIVE 1 % 0-1 PERCENT (BEAKER) (test code = 2801) POCT-GLUCOSE [id number] 21:42:25 Test Item Value Reference Range Interpretation Comments POC-GLUCOSE METER 218 mg/dL 70-110 H : TESTED A T [facility] 6720 (BEAKER) (test code = [facility], 1538) 79[address]: Filler Block Inserter Remover/Techni dakota ID = [id number] for SA HILARIO ABE POCT-GLUCOSE [id number] 17:08:14 Test Item Value Reference Range Interpretation Comments POC-GLUCOSE METER 148 mg/dL 70-110 H : TESTED A T [facility] 6720 (BEAKER) (test code [facility], = 1538) 33434: Filler Block Inserter Remover/Techni dakota ID = [id number] for SD GALLO MISCELLANEOUS LAB [id number] 14:26:25 Test Item Value Reference Range Interpretation Comments SCAN RESULT (test code = See scanned report [id number]) See scanned reportCMV PCR, [id number] 14:23:40 Test Item Value Reference Range Interpretation Comments CMV VIRAL LOAD - Negative or below See_Comment [Auto mated message] NEGATIVE (GENEVA) the linear range The sy stem which (test code = of the assay generated this 2558) (<300 IU/mL) result transmit hernandez reference range : <300 - >3,00 0,000 IU/mL. The refe rence range was not u sed to interpret th is result as normal/abnormal . Cytomegalovirus (CMV) infection can cause significant disease in immunosuppressed patients. However,it is common for CMV to manifest as a limited infection which is of no clinical significance in immunosuppressed patients or in healthy individuals.Viral load measurements are helpful to identify clinical CMV infection and to guide the pre-emptive management of antiviral therapy. For treatment of CMVinfection due to reactivation in transplant recipients, a threshold between 4,000 and 5,000 copies/mL is suggested. For treatment of primary CMV infection, a lower threshold can be used.CMV infection may also be monitored using weekly serial measurements. Serial measurements of CMV DNA viral load canbe evaluated by identifying a 10-fold change, as well as assessing the CMV DNA viral load and the clinical context for each patient.The plasma CMV DNA viral load was detected using quantitative polymerase chain reaction and fluorescent monitoring of a specific hybridized probe. Genetic variation and ot her factors can affect the accuracy of nucleic acid testing. Therefore, the results should be interpreted in light of clinical data. A negative result may not exclude the presence of CMV disease.This test was developed and its performance characteristics determined by the [facility] Path ology Department, Section of Molecular Pathology. It has not been cleared or approved by the U.S. Food and Drug Administration (FDA), since FDA approval is not required for clinical use of the test. Validation was done as required by The Clinical Laboratory Improvement Amendments of 1988.POCT-GLUCOSE METER 2021-09-18 12:26:30 Test Item Value Reference Range Interpretation Comments POC-GLUCOSE METER 120 mg/dL 70-110 H : TESTED A T [facility] 6720 (GENEVA) ([facility] 06[address]: Filler Block Inserter Remover/Techni dakota ID = [id number] for SD GALLO MISCELLANEOUS LAB [id number] 09:55:02 Test Item Value Reference Range Interpretation Comments SCAN RESULT (test code = See scanned report [id number]) See scanned reportPOCT-GLUCOSE [id number] 09:36:32 Test Item Value Reference Range Interpretation Comments POC-GLUCOSE METER 99 mg/dL 70-110 : TESTED A T [facility] 6720 (BEAKER) (test code = [facility] [place], 1538) 00255: Filler Block Inserter Remover/Techni dakota ID = [id number] for SD GALLO COMPREHENSIVE METABOLIC [id number] 07:28:53 Test Item Value Reference Range Interpretation Comments TOTAL PROTEIN 5.5 gm/dL 6.0-8.3 L Specimen sligh tly (BEAKER) (test code = hemoly zed 770) ALBUMIN (BEAKER) 2.2 g/dL 3.5-5.0 L Specimen sl ightly (test code = 1145) hemolyzed ALKALINE PHOSPHATASE 97 U/L 40-150 (BEAKER) (test code = 346) BILIRUBIN TOTAL 0.5 mg/dL 0.2-1.2 Specimen sli ghtly (BEAKER) (test code = hemoly zed 377) SODIUM (BEAKER) (test 134 meq/L 136-145 L code = 381) POTASSIUM (BEAKER) 3.9 meq/L 3.5-5.1 Specimen slightly (test code = 379) hemolyzed CHLORIDE (BEAKER) 94 meq/L 98-107 L (test code = 382) CO2 (BEAKER) (test 31 meq/L 22-29 H code = 355) BLOOD UREA NITROGEN 13 mg/dL 7-21 (BEAKER) (test code = 354) CREATININE (BEAKER) 0.53 mg/dL 0.57-1.25 L Specimen slightly (test code = 358) hemolyzed GLUCOSE RANDOM 85 mg/dL 70-105 (BEAKER) (test code = 652) CALCIUM (BEAKER) 8.5 mg/dL 8.4-10.2 (test code = 697) AST (SGOT) (BEAKER) 25 U/L 5-34 Specimen slightly (test code = 353) hemolyzed ALT (SGPT) (BEAKER) 22 U/L 6-55 Specimen slightly (test code = 347) hemolyzed EGFR (BEAKER) (test 198 ESTIMATE D GFR IS code = 1092) mL/min/1.73 sq NOT ACCURA TE m CREATININE CLEARANCE IN PREDICTING GLOMERULAR FILTRATION RATE . ESTIMATED GFR I S NOT APPLICABLE FOR DIALYSIS PATIEN TS. Filler Block Inserter Remover ID - [id number] 07:28:52 Test Item Value Reference Range Interpretation Comments MAGNESIUM (BEAKER) 1.3 mg/dL 1.6-2.6 L Specimen slightly (test code = 627) hemolyzed Filler Block Inserter Remover ID - DBCBC W/PLT COUNT & AUTO [id number] 07:26:37 Test Item Value Reference Range Interpretation Comments WHITE BLOOD CELL COUNT (BEAKER) 21.4 K/ L 3.5-10.5 H (test code = 775) RED BLOOD CELL COUNT (BEAKER) 3.67 M/ L 4.63-6.08 L (test code = 761) HEMOGLOBIN (BEAKER) (test code = 8.4 GM/DL 13.7-17.5 L 410) HEMATOCRIT (BEAKER) (test code = 28.1 % 40.1-51.0 L 411) MEAN CORPUSCULAR VOLUME (BEAKER) 76.6 fL 79.0-92.2 L (test code = 753) MEAN CORPUSCULAR HEMOGLOBIN 22.9 pg 25.7-32.2 L (BEAKER) (test code = 751) MEAN CORPUSCULAR HEMOGLOBIN CONC 29.9 GM/DL 32.3-36.5 L (BEAKER) (test code = 752) RED CELL DISTRIBUTION WIDTH 21.8 % 11.6-14.4 H (BEAKER) (test code = 412) PLATELET COUNT (BEAKER) (test 363 K/CU MM 150-450 code = 756) MEAN PLATELET VOLUME (BEAKER) 11.0 fL 9.4-12.4 (test code = 754) NUCLEATED RED BLOOD CELLS 0 /100 WBC 0-0 (BEAKER) (test code = 413) NEUTROPHILS RELATIVE PERCENT 91 % (BEAKER) (test code = 429) LYMPHOCYTES RELATIVE PERCENT 5 % (BEAKER) (test code = 430) MONOCYTES RELATIVE PERCENT 2 % (BEAKER) (test code = 431) EOSINOPHILS RELATIVE PERCENT 0 % (BEAKER) (test code = 432) BASOPHILS RELATIVE PERCENT 0 % (BEAKER) (test code = 437) NEUTROPHILS ABSOLUTE COUNT 19.52 K/ L 1.78-5.38 H (BEAKER) (test code = 670) LYMPHOCYTES ABSOLUTE COUNT 1.13 K/ L 1.32-3.57 L (BEAKER) (test code = 414) MONOCYTES ABSOLUTE COUNT (BEAKER) 0.43 K/ L 0.30-0.82 (test code = 415) EOSINOPHILS ABSOLUTE COUNT 0.03 K/ L 0.04-0.54 L (BEAKER) (test code = 416) BASOPHILS ABSOLUTE COUNT (BEAKER) 0.04 K/ L 0.01-0.08 (test code = 417) IMMATURE GRANULOCYTES-RELATIVE 1 % 0-1 PERCENT (BEAKER) (test code = 2801) POCT-GLUCOSE [id number] 22:29:02 Test Item Value Reference Range Interpretation Comments POC-GLUCOSE METER 207 mg/dL 70-110 H : TESTED A T [facility] 6720 (BEAKER) (test code = [facility]) [address]: Filler Block Inserter Remover/Techni dakota ID = [id number] for VIRGILIO GARAY [place] POCT-GLUCOSE [id number] 17:18:02 Test Item Value Reference Range Interpretation Comments POC-GLUCOSE METER 228 mg/dL 70-110 H : TESTED A T [facility] 6720 (BEAKER) (test code = [facility], [facility]) 000[address]: Filler Block Inserter Remover/Techni dakota ID = [id number] for FA ITH, CASEY POCT-GLUCOSE [id number] 12:29:44 Test Item Value Reference Range Interpretation Comments POC-GLUCOSE METER 174 mg/dL 70-110 H : TESTED A T [facility] 6720 (BEAKER) (test code = [facility], 153) 909[address]: Filler Block Inserter Remover/Techni dakota ID = [id number] for FA ITH, CASEY POCT-GLUCOSE [id number] 12:15:50 Test Item Value Reference Range Interpretation Comments POC-GLUCOSE METER 111 mg/dL 70-110 H : TESTED A T [facility] 6720 (BEAKER) (test code = [facility], 153) 72083: Filler Block Inserter Remover/Techni dakota ID = [id number] for MASON LINK GI PATHOGEN PROFILE BY [id number] 08:09:12 Test Item Value Reference Range Interpretation Comments CAMPYLOBACTER (PCR) (test code = Not detected Not detected 20151122) PLESIOMONAS SHIGELLOIDES (PCR) Not detected Not detected (test code = 20151126) SALMONELLA (PCR) (test code = Not detected Not detected ) YERSINIA ENTEROCOLITICA (PCR) Not detected Not detected (test code = 20151219) VIBRIO CHOLERAE (PCR) (test code Not detected Not detected = 20151220) ENTEROAGGREGATIVE E. COLI (EAEC) Not detected Not detected BY PCR (test code = 2751144) ENTEROPATHOGENIC E. COLI (EPEC) Not detected Not detected BY PCR (test code = 6586580) ENTEROTOXIGENIC E. COLI (ETEC) Not detected Not detected LT/ST BY PCR (test code = 1949369) SHIGA-LIKE TOXIN-PRODUCING E. Not detected Not detected COLI (STEC) STX1/STX2 (test code = 6241353) E. COLI O157 (PCR) (test code = 6984388) SHIGELLA/ENTEROINVASIVE E. COLI Not detected Not detected (EIEC) BY PCR (test code = 20151226) CRYPTOSPORIDIUM (PCR) (test code Not detected Not detected = 20151227) CYCLOSPORA CAYETANENSIS (PCR) Not detected Not detected (test code = ) ENTAMOEBA HISTOLYTICA (PCR) Not detected Not detected (test code = 20160119) GIARDIA LAMBLIA (PCR) (test code Not detected Not detected = 20160120) ADENOVIRUS F 40/41 (PCR) (test Not detected Not detected code = 20160121) ASTROVIRUS (PCR) (test code = Not detected Not detected 20160122) NOROVIRUS GI/GII (PCR) (test Not detected Not detected code = 0195642) ROTAVIRUS A (PCR) (test code = Not detected Not detected 20160124) SAPOVIRUS (I, II, IV, V) BY PCR Not detected Not detected (test code = 4749514) VIBRIO (PARAHAEMOLYTICUS, Not detected Not detected VULNIFICUS) (test code = 3177743) Other viruses, parasites and bacteria not targeted by this PCR panel cannot be excluded; therefore clinical correlation and follow up of serology, culture results, and other molecular studies is required. The results are not intended to be used as the sole means for clinical diagnosis or patient management decisions. This sample was tested at the [facility] Molecular Diagnostics Laboratory using the [employer] Gastrointestinal Panel. It is FDA cleared and has been verified and approved by the [facility] for clinical use. This laboratory is CLIA-certified and College ofAmerican Pathologists (CAP)-accredited to perform high complexity testing.POCT-GLUCOSE [id number] 08:04:19 Test Item Value Reference Range Interpretation Comments POC-GLUCOSE METER 141 mg/dL 70-110 H : TESTED A T [facility] 6720 (BEAKER) (test code = [facility] [place], 1538) 54959: Filler Block Inserter Remover/Techni dakota ID = [id number] for CASEY KERNS [id number] 07:09:55 Test Item Value Reference Range Interpretation Comments MAGNESIUM (BEAKER) (test code = 1.6 mg/dL 1.6-2.6 627) Filler Block Inserter Remover ID - DBCOMPREHENSIVE METABOLIC [id number] 07:09:54 Test Item Value Reference Range Interpretation Comments TOTAL PROTEIN 5.2 gm/dL 6.0-8.3 L (BEAKER) (test code = 770) ALBUMIN (BEAKER) 2.1 g/dL 3.5-5.0 L (test code = 1145) ALKALINE PHOSPHATASE 93 U/L 40-150 (BEAKER) (test code = 346) BILIRUBIN TOTAL 0.5 mg/dL 0.2-1.2 (BEAKER) (test code = 377) SODIUM (BEAKER) (test 135 meq/L 136-145 L code = 381) POTASSIUM (BEAKER) 3.7 meq/L 3.5-5.1 (test code = 379) CHLORIDE (BEAKER) 95 meq/L 98-107 L (test code = 382) CO2 (BEAKER) (test 29 meq/L 22-29 code = 355) BLOOD UREA NITROGEN 17 mg/dL 7-21 (BEAKER) (test code = 354) CREATININE (BEAKER) 0.52 mg/dL 0.57-1.25 L (test code = 358) GLUCOSE RANDOM 130 mg/dL 70-105 H (BEAKER) (test code = 652) CALCIUM (BEAKER) 8.6 mg/dL 8.4-10.2 (test code = 697) AST (SGOT) (BEAKER) 26 U/L 5-34 (test code = 353) ALT (SGPT) (BEAKER) 28 U/L 6-55 (test code = 347) EGFR (BEAKER) (test 203 ESTIMATE D GFR IS code = 1092) mL/min/1.73 sq NOT ACCURA TE m CREATININE CLEARANCE IN PREDICTING GLOMERULAR FILTRATION RATE . ESTIMATED GFR I S NOT APPLICABLE FOR DIALYSIS PATIEN TS. Filler Block Inserter Remover ID - [id number] 06:53:54 Test Item Value Reference Range Interpretation Comments FERRITIN (BEAKER) (test code = 1616.89 ng/mL 5.00-275.00 H 361) Filler Block Inserter Remover ID - SHREE WCBC W/PLT COUNT & AUTO [id number] 06:20:10 Test Item Value Reference Range Interpretation Comments WHITE BLOOD CELL COUNT (BEAKER) 16.8 K/ L 3.5-10.5 H (test code = 775) RED BLOOD CELL COUNT (BEAKER) 3.08 M/ L 4.63-6.08 L (test code = 761) HEMOGLOBIN (BEAKER) (test code = 7.4 GM/DL 13.7-17.5 L 410) HEMATOCRIT (BEAKER) (test code = 23.7 % 40.1-51.0 L 411) MEAN CORPUSCULAR VOLUME (BEAKER) 76.9 fL 79.0-92.2 L (test code = 753) MEAN CORPUSCULAR HEMOGLOBIN 24.0 pg 25.7-32.2 L (BEAKER) (test code = 751) MEAN CORPUSCULAR HEMOGLOBIN CONC 31.2 GM/DL 32.3-36.5 L (BEAKER) (test code = 752) RED CELL DISTRIBUTION WIDTH 22.0 % 11.6-14.4 H (BEAKER) (test code = 412) PLATELET COUNT (BEAKER) (test 267 K/CU MM 150-450 code = 756) MEAN PLATELET VOLUME (BEAKER) 10.5 fL 9.4-12.4 (test code = 754) NUCLEATED RED BLOOD CELLS 0 /100 WBC 0-0 (BEAKER) (test code = 413) NEUTROPHILS RELATIVE PERCENT 89 % (BEAKER) (test code = 429) LYMPHOCYTES RELATIVE PERCENT 6 % (BEAKER) (test code = 430) MONOCYTES RELATIVE PERCENT 3 % (BEAKER) (test code = 431) EOSINOPHILS RELATIVE PERCENT 0 % (BEAKER) (test code = 432) BASOPHILS RELATIVE PERCENT 0 % (BEAKER) (test code = 437) NEUTROPHILS ABSOLUTE COUNT 14.94 K/ L 1.78-5.38 H (BEAKER) (test code = 670) LYMPHOCYTES ABSOLUTE COUNT 1.07 K/ L 1.32-3.57 L (BEAKER) (test code = 414) MONOCYTES ABSOLUTE COUNT (BEAKER) 0.42 K/ L 0.30-0.82 (test code = 415) EOSINOPHILS ABSOLUTE COUNT 0.03 K/ L 0.04-0.54 L (BEAKER) (test code = 416) BASOPHILS ABSOLUTE COUNT (BEAKER) 0.03 K/ L 0.01-0.08 (test code = 417) IMMATURE GRANULOCYTES-RELATIVE 2 % 0-1 H PERCENT (BEAKER) (test code = 2801) POCT-GLUCOSE [id number] 22:18:47 Test Item Value Reference Range Interpretation Comments POC-GLUCOSE METER 255 mg/dL 70-110 H : TESTED A T [facility] 6720 (BEAKER) (test code = [facility], 153) 01007: Filler Block Inserter Remover/Techni dakota ID = [id number] for Cherry Morrissey POCT-GLUCOSE [id number] 17:41:27 Test Item Value Reference Range Interpretation Comments POC-GLUCOSE METER 160 mg/dL 70-110 H : TESTED A T [facility] 6720 (BEAKER) (test code = [facility], 1538) 14561: Filler Block Inserter Remover/Techni dakota ID = [id number] for CODY GAUTHIER, MASON POCT-GLUCOSE [id number] 11:47:30 Test Item Value Reference Range Interpretation Comments POC-GLUCOSE METER 126 mg/dL 70-110 H : TESTED A T [facility] 6720 (BEAKER) (test code = [facility], 153) [address]: Filler Block Inserter Remover/Techni dakota ID = [id number] for CODY GAUTHIER, MASON [id number] 11:09:58 Test Item Value Reference Range Interpretation Comments FERRITIN (BEAKER) (test code = 1216.61 ng/mL 5.00-275.00 H 361) Filler Block Inserter Remover ID - FATMATA WBLOOD [id number] 10:00:55 Test Item Value Reference Range Interpretation Comments CULTURE (BEAKER) (test No growth in 5 days code = 1095) The specimen volume collected for this blood culture was below the optimum (10 mL per bottle or 20 mL total). Use of lower volumes may adversely affect recovery and/or detection times of some organisms.CBC W/PLT COUNT & AUTO [id number] 07:57:54 Test Item Value Reference Range Interpretation Comments WHITE BLOOD CELL COUNT (BEAKER) 22.2 K/ L 3.5-10.5 H (test code = 775) RED BLOOD CELL COUNT (BEAKER) 3.74 M/ L 4.63-6.08 L (test code = 761) HEMOGLOBIN (BEAKER) (test code = 8.8 GM/DL 13.7-17.5 L 410) HEMATOCRIT (BEAKER) (test code = 29.3 % 40.1-51.0 L 411) MEAN CORPUSCULAR VOLUME (BEAKER) 78.3 fL 79.0-92.2 L (test code = 753) MEAN CORPUSCULAR HEMOGLOBIN 23.5 pg 25.7-32.2 L (BEAKER) (test code = 751) MEAN CORPUSCULAR HEMOGLOBIN CONC 30.0 GM/DL 32.3-36.5 L (BEAKER) (test code = 752) RED CELL DISTRIBUTION WIDTH 22.2 % 11.6-14.4 H (BEAKER) (test code = 412) PLATELET COUNT (BEAKER) (test 338 K/CU MM 150-450 code = 756) MEAN PLATELET VOLUME (BEAKER) 10.8 fL 9.4-12.4 (test code = 754) NUCLEATED RED BLOOD CELLS 0 /100 WBC 0-0 (BEAKER) (test code = 413) NEUTROPHILS RELATIVE PERCENT 87 % (BEAKER) (test code = 429) LYMPHOCYTES RELATIVE PERCENT 7 % (BEAKER) (test code = 430) MONOCYTES RELATIVE PERCENT 2 % (BEAKER) (test code = 431) EOSINOPHILS RELATIVE PERCENT 0 % (BEAKER) (test code = 432) BASOPHILS RELATIVE PERCENT 0 % (BEAKER) (test code = 437) NEUTROPHILS ABSOLUTE COUNT 19.36 K/ L 1.78-5.38 H (BEAKER) (test code = 670) LYMPHOCYTES ABSOLUTE COUNT 1.45 K/ L 1.32-3.57 (BEAKER) (test code = 414) MONOCYTES ABSOLUTE COUNT (BEAKER) 0.42 K/ L 0.30-0.82 (test code = 415) EOSINOPHILS ABSOLUTE COUNT 0.09 K/ L 0.04-0.54 (BEAKER) (test code = 416) BASOPHILS ABSOLUTE COUNT (BEAKER) 0.05 K/ L 0.01-0.08 (test code = 417) IMMATURE GRANULOCYTES-RELATIVE 4 % 0-1 H PERCENT (BEAKER) (test code = 2801) COMPREHENSIVE METABOLIC [id number] 07:37:26 Test Item Value Reference Range Interpretation Comments TOTAL PROTEIN 5.1 gm/dL 6.0-8.3 L (BEAKER) (test code = 770) ALBUMIN (BEAKER) 2.2 g/dL 3.5-5.0 L (test code = 1145) ALKALINE PHOSPHATASE 93 U/L 40-150 (BEAKER) (test code = 346) BILIRUBIN TOTAL 0.5 mg/dL 0.2-1.2 (BEAKER) (test code = 377) SODIUM (BEAKER) (test 137 meq/L 136-145 code = 381) POTASSIUM (BEAKER) 3.4 meq/L 3.5-5.1 L (test code = 379) CHLORIDE (BEAKER) 97 meq/L 98-107 L (test code = 382) CO2 (BEAKER) (test 29 meq/L 22-29 code = 355) BLOOD UREA NITROGEN 11 mg/dL 7-21 (BEAKER) (test code = 354) CREATININE (BEAKER) 0.56 mg/dL 0.57-1.25 L (test code = 358) GLUCOSE RANDOM 121 mg/dL 70-105 H (BEAKER) (test code = 652) CALCIUM (BEAKER) 8.0 mg/dL 8.4-10.2 L (test code = 697) AST (SGOT) (BEAKER) 29 U/L 5-34 (test code = 353) ALT (SGPT) (BEAKER) 33 U/L 6-55 (test code = 347) EGFR (BEAKER) (test 186 ESTIMATE D GFR IS code = 1092) mL/min/1.73 sq NOT ACCURA TE m CREATININE CLEARANCE IN PREDICTING GLOMERULAR FILTRATION RATE . ESTIMATED GFR I S NOT APPLICABLE FOR DIALYSIS PATIEN TS. Filler Block Inserter Remover ID - [id number] 07:37:26 Test Item Value Reference Range Interpretation Comments MAGNESIUM (BEAKER) (test code = 1.5 mg/dL 1.6-2.6 L 627) Filler Block Inserter Remover ID - DBC. DIFFICILE GDH [id number] 23:10:55 Test Item Value Reference Range Interpretation Comments CDT TOXIN (test code Negative Negative = [id number]) CDT GDH ANTIGEN Positive Negative A C. difficile present but (test code = toxin not detec hernandez. [id number]) Indicates colon ization with non-toxige luis antonio strain or level of tox in below detectable leve ls. No need for enteri c isolation. Adama atment is rarely needed ( only when strong clinical suspicion for Clostridium difficile infection) Testing performed by [facility] Cassette Assay. For GDH, published sensitivity of the assay is 98.7% compared to cytotoxicity testing. For Toxin AB, published sensitivity is 87.8% and specificity 99.4% compared to cytotoxicity testing.Verification of kit performance was done by the [facility] Microbiology Lab prior to clinical use.POCT-GLUCOSE [id number] 21:40:07 Test Item Value Reference Range Interpretation Comments POC-GLUCOSE METER 144 mg/dL 70-110 H : TESTED A T [facility] ([employer]) (test code = [facility], 1538) 44064: Filler Block Inserter Remover/Techni dakota ID = [id number] for SA RICH ABE POCT-GLUCOSE [id number] 19:13:38 Test Item Value Reference Range Interpretation Comments POC-GLUCOSE METER 71 mg/dL 70-110 : TESTED A T [facility] 6720 (BEAKER) (test code = [facility], 1538) 29907: Filler Block Inserter Remover/Techni dakota ID = [id number] for NAVID JAZLYN, MASON POCT-GLUCOSE [id number] 17:28:46 Test Item Value Reference Range Interpretation Comments POC-GLUCOSE METER 156 mg/dL 70-110 H : TESTED A T [facility] 6720 (BEAKER) (test code = [facility], 1538) 82118: Filler Block Inserter Remover/Techni dakota ID = [id number] for CODY RTINEZ, MASON [id number] 17:03:09 Test Item Value Reference Range Interpretation Comments MAGNESIUM (BEAKER) (test code = 1.3 mg/dL 1.6-2.6 L 627) Filler Block Inserter Remover ID - ADMINBASIC METABOLIC [id number] 17:03:08 Test Item Value Reference Range Interpretation Comments SODIUM (BEAKER) 137 meq/L 136-145 (test code = 381) POTASSIUM (BEAKER) 3.9 meq/L 3.5-5.1 (test code = 379) CHLORIDE (BEAKER) 96 meq/L 98-107 L (test code = 382) CO2 (BEAKER) (test 30 meq/L 22-29 H code = 355) BLOOD UREA NITROGEN 9 mg/dL 7-21 (BEAKER) (test code = 354) CREATININE (BEAKER) 0.55 mg/dL 0.57-1.25 L (test code = 358) GLUCOSE RANDOM 198 mg/dL 70-105 H (BEAKER) (test code = 652) CALCIUM (BEAKER) 8.3 mg/dL 8.4-10.2 L (test code = 697) EGFR (BEAKER) (test 190 mL/min/1.73 ESTIM ATED GFR IS code = 1092) sq m NOT ACCURATE CREATININE CLEARANCE IN PREDICTING GLOMERULAR FILTRATION RATE . ESTIMATED GFR I S NOT APPLICABLE FOR DIALYSIS PATIEN TS. Filler Block Inserter Remover ID - ADMINBLOOD [id number] 12:01:39 Test Item Value Reference Range Interpretation Comments CULTURE (BEAKER) (test No growth in 5 days code = 1095) POCT-GLUCOSE [id number] 11:07:13 Test Item Value Reference Range Interpretation Comments POC-GLUCOSE METER 173 mg/dL 70-110 H : [facility] (BEAKER) (test code = [place], 1538) 596[address]: Filler Block Inserter Remover/Techni dakota ID = [id number] for MASON LINK [id number] 08:10:09 Test Item Value Reference Range Interpretation Comments MAGNESIUM (BEAKER) (test code = 1.3 mg/dL 1.6-2.6 L 627) Filler Block Inserter Remover ID - DBCOMPREHENSIVE METABOLIC [id number] 08:10:08 Test Item Value Reference Range Interpretation Comments TOTAL PROTEIN 5.2 gm/dL 6.0-8.3 L (BEAKER) (test code = 770) ALBUMIN (BEAKER) 2.1 g/dL 3.5-5.0 L (test code = 1145) ALKALINE PHOSPHATASE 101 U/L 40-150 (BEAKER) (test code = 346) BILIRUBIN TOTAL 0.4 mg/dL 0.2-1.2 (BEAKER) (test code = 377) SODIUM (BEAKER) (test 138 meq/L 136-145 code = 381) POTASSIUM (BEAKER) 3.2 meq/L 3.5-5.1 L (test code = 379) CHLORIDE (BEAKER) 99 meq/L 98-107 (test code = 382) CO2 (BEAKER) (test 28 meq/L 22-29 code = 355) BLOOD UREA NITROGEN 12 mg/dL 7-21 (BEAKER) (test code = 354) CREATININE (BEAKER) 0.48 mg/dL 0.57-1.25 L (test code = 358) GLUCOSE RANDOM 87 mg/dL 70-105 (BEAKER) (test code = 652) CALCIUM (BEAKER) 8.0 mg/dL 8.4-10.2 L (test code = 697) AST (SGOT) (BEAKER) 47 U/L 5-34 H (test code = 353) ALT (SGPT) (BEAKER) 44 U/L 6-55 (test code = 347) EGFR (BEAKER) (test 222 ESTIMATE D GFR IS code = 1092) mL/min/1.73 sq NOT ACCURA TE m CREATININE CLEARANCE IN PREDICTING GLOMERULAR FILTRATION RATE . ESTIMATED GFR I S NOT APPLICABLE FOR DIALYSIS PATIEN TS. Filler Block Inserter Remover ID - DBCBC W/PLT COUNT & AUTO [id number] 07:40:05 Test Item Value Reference Range Interpretation Comments WHITE BLOOD CELL COUNT (BEAKER) 15.0 K/ L 3.5-10.5 H (test code = 775) RED BLOOD CELL COUNT (BEAKER) 3.17 M/ L 4.63-6.08 L (test code = 761) HEMOGLOBIN (BEAKER) (test code = 7.4 GM/DL 13.7-17.5 L 410) HEMATOCRIT (BEAKER) (test code = 24.3 % 40.1-51.0 L 411) MEAN CORPUSCULAR VOLUME (BEAKER) 76.7 fL 79.0-92.2 L (test code = 753) MEAN CORPUSCULAR HEMOGLOBIN 23.3 pg 25.7-32.2 L (BEAKER) (test code = 751) MEAN CORPUSCULAR HEMOGLOBIN CONC 30.5 GM/DL 32.3-36.5 L (BEAKER) (test code = 752) RED CELL DISTRIBUTION WIDTH 22.1 % 11.6-14.4 H (BEAKER) (test code = 412) PLATELET COUNT (BEAKER) (test 260 K/CU MM 150-450 code = 756) MEAN PLATELET VOLUME (BEAKER) 11.6 fL 9.4-12.4 (test code = 754) NUCLEATED RED BLOOD CELLS 0 /100 WBC 0-0 (BEAKER) (test code = 413) NEUTROPHILS RELATIVE PERCENT 82 % (BEAKER) (test code = 429) LYMPHOCYTES RELATIVE PERCENT 9 % (BEAKER) (test code = 430) MONOCYTES RELATIVE PERCENT 4 % (BEAKER) (test code = 431) EOSINOPHILS RELATIVE PERCENT 0 % (BEAKER) (test code = 432) BASOPHILS RELATIVE PERCENT 0 % (BEAKER) (test code = 437) NEUTROPHILS ABSOLUTE COUNT 12.31 K/ L 1.78-5.38 H (BEAKER) (test code = 670) LYMPHOCYTES ABSOLUTE COUNT 1.39 K/ L 1.32-3.57 (BEAKER) (test code = 414) MONOCYTES ABSOLUTE COUNT (BEAKER) 0.52 K/ L 0.30-0.82 (test code = 415) EOSINOPHILS ABSOLUTE COUNT 0.05 K/ L 0.04-0.54 (BEAKER) (test code = 416) BASOPHILS ABSOLUTE COUNT (BEAKER) 0.02 K/ L 0.01-0.08 (test code = 417) IMMATURE GRANULOCYTES-RELATIVE 5 % 0-1 H PERCENT (BEAKER) (test code = 2801) [id number] 06:53:41 Test Item Value Reference Range Interpretation Comments FERRITIN (BEAKER) (test code = 1099.45 ng/mL 5.00-275.00 H 361) Filler Block Inserter Remover ID - SHREE WPOCT-GLUCOSE [id number] 21:23:35 Test Item Value Reference Range Interpretation Comments POC-GLUCOSE METER 196 mg/dL 70-110 H : TESTED A T [facility] 6720 (BEAKER) (test code = [place] [facility], 1538) 25532: Filler Block Inserter Remover/Techni dakota ID = [id number] for Cherry Morrissey POCT-GLUCOSE [id number] 18:12:17 Test Item Value Reference Range Interpretation Comments POC-GLUCOSE METER 240 mg/dL 70-110 H : TESTED A T [facility] 6720 (BEAKER) (test code [facility], = 1538) 77195: Filler Block Inserter Remover/Techni dakota ID = [id number] for SD GALLO [id number] 16:01:42 Test Item Value Reference Range Interpretation Comments FERRITIN (BEAKER) (test code = 1526.03 ng/mL 5.00-275.00 H 361) Filler Block Inserter Remover ID - DBHEPATIC FUNCTION [id number] 14:17:51 Test Item Value Reference Range Interpretation Comments TOTAL PROTEIN (BEAKER) (test code = 5.1 gm/dL 6.0-8.3 L 770) ALBUMIN (BEAKER) (test code = 1145) 2.2 g/dL 3.5-5.0 L BILIRUBIN TOTAL (BEAKER) (test code 0.4 mg/dL 0.2-1.2 = 377) BILIRUBIN DIRECT (BEAKER) (test 0.3 mg/dL 0.1-0.5 code = 706) ALKALINE PHOSPHATASE (BEAKER) (test 103 U/L 40-150 code = 346) AST (SGOT) (BEAKER) (test code = 55 U/L 5-34 H 353) ALT (SGPT) (BEAKER) (test code = 45 U/L 6-55 347) Filler Block Inserter Remover ID - BSPOCT-GLUCOSE [id number] 12:52:27 Test Item Value Reference Range Interpretation Comments POC-GLUCOSE METER 165 mg/dL 70-110 H : TESTED A T [facility] 6720 (BEAKER) (test code [facility], = 1538) 70715: Filler Block Inserter Remover/Techni dakota ID = [id number] for SD GALLO BASIC METABOLIC [id number] 12:24:38 Test Item Value Reference Range Interpretation Comments SODIUM (BEAKER) 136 meq/L 136-145 (test code = 381) POTASSIUM (BEAKER) 3.3 meq/L 3.5-5.1 L (test code = 379) CHLORIDE (BEAKER) 99 meq/L 98-107 (test code = 382) CO2 (BEAKER) (test 30 meq/L 22-29 H code = 355) BLOOD UREA NITROGEN 11 mg/dL 7-21 (BEAKER) (test code = 354) CREATININE (BEAKER) 0.51 mg/dL 0.57-1.25 L (test code = 358) GLUCOSE RANDOM 105 mg/dL 70-105 (BEAKER) (test code = 652) CALCIUM (BEAKER) 8.0 mg/dL 8.4-10.2 L (test code = 697) EGFR (BEAKER) (test 207 mL/min/1.73 ESTIM ATED GFR IS code = 1092) sq m NOT ACCURATE CREATININE CLEARANCE IN PREDICTING GLOMERULAR FILTRATION RATE . ESTIMATED GFR I S NOT APPLICABLE FOR DIALYSIS PATIEN TS. Filler Block Inserter Remover ID - BSOperator ID - [id number] 12:24:33 Test Item Value Reference Range Interpretation Comments MAGNESIUM (BEAKER) (test code = 1.3 mg/dL 1.6-2.6 L 627) Filler Block Inserter Remover ID - BSOperator ID - BSPOCT-GLUCOSE [id number] 08:43:31 Test Item Value Reference Range Interpretation Comments POC-GLUCOSE METER 83 mg/dL 70-110 : TESTED A T [facility] 6720 (BEAKER) (test code = [facility], 153) 78777: Filler Block Inserter Remover/Techni dakota ID = [id number] for SD GALLO POCT-GLUCOSE [id number] 22:05:41 Test Item Value Reference Range Interpretation Comments POC-GLUCOSE METER 190 mg/dL 70-110 H : TESTED A T [facility] 6720 (BEAKER) (test code = [facility], 1538) 60169: Filler Block Inserter Remover/Techni dakota ID = [id number] for SA RICH, ABE POCT-GLUCOSE [id number] 16:33:29 Test Item Value Reference Range Interpretation Comments POC-GLUCOSE METER 221 mg/dL 70-110 H : TESTED A T [facility] 6720 (BEAKER) (test code = [facility], 1538) 17860: Filler Block Inserter Remover/Techni dakota ID = [id number] for [place], Susanna POCT-GLUCOSE [id number] 12:08:57 Test Item Value Reference Range Interpretation Comments POC-GLUCOSE METER 127 mg/dL 70-110 H : TESTED A T [facility] 6720 (BEAKER) (test code = [facility], 1538) 31431: Filler Block Inserter Remover/Techni dakota ID = [id number] for Susanna Whaley POCT-GLUCOSE [id number] 09:48:13 Test Item Value Reference Range Interpretation Comments POC-GLUCOSE METER 99 mg/dL 70-110 : TESTED A T [facility] 6720 (BEAKER) (test code = [facility], 1538) 92901: Filler Block Inserter Remover/Techni dakota ID = [id number] for LALY LUCAS HEMOGLOBIN [id number] 09:05:11 Test Item Value Reference Range Interpretation Comments HEMOGLOBIN A1C 6.1 % See_Comment H [Automated m essage] ELECTROPHORESIS (AKER) The system which (test code = 3811) generated this result transmitted ref erence range: <=5.6%. The reference range was not used to int erpret this result as normal/abnormal . "The A1c is measured using a NGSP-certified method. HbA1c value equal to or greater than 6.5% as thediagnosis cutoff for diabetes. An HbA1c value of 5.7- 6.4% indicates increased risk for diabetes (prediabetes)."Filler Block Inserter Remover ID - ADM COMPREHENSIVE METABOLIC [id number] 06:09:47 Test Item Value Reference Range Interpretation Comments TOTAL PROTEIN 5.0 gm/dL 6.0-8.3 L (BEAKER) (test code = 770) ALBUMIN (BEAKER) 2.1 g/dL 3.5-5.0 L (test code = 1145) ALKALINE PHOSPHATASE 92 U/L 40-150 (BEAKER) (test code = 346) BILIRUBIN TOTAL 0.4 mg/dL 0.2-1.2 (BEAKER) (test code = 377) SODIUM (BEAKER) (test 139 meq/L 136-145 code = 381) POTASSIUM (BEAKER) 3.2 meq/L 3.5-5.1 L (test code = 379) CHLORIDE (BEAKER) 102 meq/L 98-107 (test code = 382) CO2 (BEAKER) (test 28 meq/L 22-29 code = 355) BLOOD UREA NITROGEN 16 mg/dL 7-21 (BEAKER) (test code = 354) CREATININE (BEAKER) 0.56 mg/dL 0.57-1.25 L (test code = 358) GLUCOSE RANDOM 103 mg/dL 70-105 (BEAKER) (test code = 652) CALCIUM (BEAKER) 7.8 mg/dL 8.4-10.2 L (test code = 697) AST (SGOT) (BEAKER) 51 U/L 5-34 H (test code = 353) ALT (SGPT) (BEAKER) 42 U/L 6-55 (test code = 347) EGFR (BEAKER) (test 186 ESTIMATE D GFR IS code = 1092) mL/min/1.73 sq NOT ACCURA TE m CREATININE CLEARANCE IN PREDICTING GLOMERULAR FILTRATION RATE . ESTIMATED GFR I S NOT APPLICABLE FOR DIALYSIS PATIEN TS. Filler Block Inserter Remover ID - [id number] 05:58:32 Test Item Value Reference Range Interpretation Comments MAGNESIUM (BEAKER) (test code = 1.3 mg/dL 1.6-2.6 L 627) Filler Block Inserter Remover ID - [id number] 05:58:32 Test Item Value Reference Range Interpretation Comments PHOSPHORUS (BEAKER) (test code = 2.8 mg/dL 2.3-4.7 604) Filler Block Inserter Remover ID - BSCBC W/PLT COUNT & AUTO [id number] 05:24:08 Test Item Value Reference Range Interpretation Comments WHITE BLOOD CELL COUNT (BEAKER) 13.6 K/ L 3.5-10.5 H (test code = 775) RED BLOOD CELL COUNT (BEAKER) 2.82 M/ L 4.63-6.08 L (test code = 761) HEMOGLOBIN (BEAKER) (test code = 7.4 GM/DL 13.7-17.5 L 410) HEMATOCRIT (BEAKER) (test code = 21.8 % 40.1-51.0 L 411) MEAN CORPUSCULAR VOLUME (BEAKER) 77.3 fL 79.0-92.2 L (test code = 753) MEAN CORPUSCULAR HEMOGLOBIN 26.2 pg 25.7-32.2 (BEAKER) (test code = 751) MEAN CORPUSCULAR HEMOGLOBIN CONC 33.9 GM/DL 32.3-36.5 (BEAKER) (test code = 752) RED CELL DISTRIBUTION WIDTH 21.3 % 11.6-14.4 H (BEAKER) (test code = 412) PLATELET COUNT (BEAKER) (test 201 K/CU MM 150-450 code = 756) MEAN PLATELET VOLUME (BEAKER) 12.2 fL 9.4-12.4 (test code = 754) NUCLEATED RED BLOOD CELLS 0 /100 WBC 0-0 (BEAKER) (test code = 413) NEUTROPHILS RELATIVE PERCENT 85 % (BEAKER) (test code = 429) LYMPHOCYTES RELATIVE PERCENT 9 % (BEAKER) (test code = 430) MONOCYTES RELATIVE PERCENT 3 % (BEAKER) (test code = 431) EOSINOPHILS RELATIVE PERCENT 1 % (BEAKER) (test code = 432) BASOPHILS RELATIVE PERCENT 0 % (BEAKER) (test code = 437) NEUTROPHILS ABSOLUTE COUNT 11.52 K/ L 1.78-5.38 H (BEAKER) (test code = 670) LYMPHOCYTES ABSOLUTE COUNT 1.19 K/ L 1.32-3.57 L (BEAKER) (test code = 414) MONOCYTES ABSOLUTE COUNT (BEAKER) 0.42 K/ L 0.30-0.82 (test code = 415) EOSINOPHILS ABSOLUTE COUNT 0.08 K/ L 0.04-0.54 (BEAKER) (test code = 416) BASOPHILS ABSOLUTE COUNT (BEAKER) 0.02 K/ L 0.01-0.08 (test code = 417) IMMATURE GRANULOCYTES-RELATIVE 3 % 0-1 H PERCENT (BEAKER) (test code = 2801) POCT-GLUCOSE [id number] 21:20:25 Test Item Value Reference Range Interpretation Comments POC-GLUCOSE METER 186 mg/dL 70-110 H : TESTED A T [facility] (BEAKER) (test code = [place], 1538) 60034: Filler Block Inserter Remover/Techni dakota ID = [id number] for JUAN JOSÉ GIRON [id number] 18:54:47 Test Item Value Reference Range Interpretation Comments FERRITIN (BEAKER) (test code = 1911.44 ng/mL 5.00-275.00 H 361) Filler Block Inserter Remover ID - BSCOMPREHENSIVE METABOLIC [id number] 18:12:55 Test Item Value Reference Range Interpretation Comments TOTAL PROTEIN 5.5 gm/dL 6.0-8.3 L (BEAKER) (test code = 770) ALBUMIN (BEAKER) 2.3 g/dL 3.5-5.0 L (test code = 1145) ALKALINE PHOSPHATASE 107 U/L 40-150 (BEAKER) (test code = 346) BILIRUBIN TOTAL 0.4 mg/dL 0.2-1.2 (BEAKER) (test code = 377) SODIUM (BEAKER) (test 139 meq/L 136-145 code = 381) POTASSIUM (BEAKER) 3.9 meq/L 3.5-5.1 (test code = 379) CHLORIDE (BEAKER) 101 meq/L 98-107 (test code = 382) CO2 (BEAKER) (test 28 meq/L 22-29 code = 355) BLOOD UREA NITROGEN 17 mg/dL 7-21 (BEAKER) (test code = 354) CREATININE (BEAKER) 0.60 mg/dL 0.57-1.25 (test code = 358) GLUCOSE RANDOM 195 mg/dL 70-105 H (BEAKER) (test code = 652) CALCIUM (BEAKER) 8.2 mg/dL 8.4-10.2 L (test code = 697) AST (SGOT) (BEAKER) 73 U/L 5-34 H (test code = 353) ALT (SGPT) (BEAKER) 53 U/L 6-55 (test code = 347) EGFR (BEAKER) (test 172 ESTIMATE D GFR IS code = 1092) mL/min/1.73 sq NOT ACCURA TE m CREATININE CLEARANCE IN PREDICTING GLOMERULAR FILTRATION RATE . ESTIMATED GFR I S NOT APPLICABLE FOR DIALYSIS PATIEN TS. Filler Block Inserter Remover ID - [id number] 18:12:55 Test Item Value Reference Range Interpretation Comments MAGNESIUM (BEAKER) (test code = 1.4 mg/dL 1.6-2.6 L 627) Filler Block Inserter Remover ID - [id number] 18:12:55 Test Item Value Reference Range Interpretation Comments PHOSPHORUS (BEAKER) (test code = 3.0 mg/dL 2.3-4.7 604) Filler Block Inserter Remover ID - BSCOMPLEMENT COMPONENT [id number] 18:09:15 Test Item Value Reference Range Interpretation Comments C4 COMPLEMENT (BEAKER) (test code = 4 mg/dL 15-57 L 394) Filler Block Inserter Remover ID - BSCOMPLEMENT COMPONENT [id number] 18:09:15 Test Item Value Reference Range Interpretation Comments C3 COMPLEMENT (BEAKER) (test code = 31 mg/dL 82-193 L 393) Filler Block Inserter Remover ID - BSCBC W/PLT COUNT & AUTO [id number] 17:46:55 Test Item Value Reference Range Interpretation Comments WHITE BLOOD CELL COUNT (BEAKER) 14.6 K/ L 3.5-10.5 H (test code = 775) RED BLOOD CELL COUNT (BEAKER) 3.61 M/ L 4.63-6.08 L (test code = 761) HEMOGLOBIN (BEAKER) (test code = 8.4 GM/DL 13.7-17.5 L 410) HEMATOCRIT (BEAKER) (test code = 27.8 % 40.1-51.0 L 411) MEAN CORPUSCULAR VOLUME (BEAKER) 77.0 fL 79.0-92.2 L (test code = 753) MEAN CORPUSCULAR HEMOGLOBIN 23.3 pg 25.7-32.2 L (BEAKER) (test code = 751) MEAN CORPUSCULAR HEMOGLOBIN CONC 30.2 GM/DL 32.3-36.5 L (BEAKER) (test code = 752) RED CELL DISTRIBUTION WIDTH 21.6 % 11.6-14.4 H (BEAKER) (test code = 412) PLATELET COUNT (BEAKER) (test 238 K/CU MM 150-450 code = 756) MEAN PLATELET VOLUME (BEAKER) 10.6 fL 9.4-12.4 (test code = 754) NUCLEATED RED BLOOD CELLS 0 /100 WBC 0-0 (BEAKER) (test code = 413) NEUTROPHILS RELATIVE PERCENT 93 % (BEAKER) (test code = 429) LYMPHOCYTES RELATIVE PERCENT 3 % (BEAKER) (test code = 430) MONOCYTES RELATIVE PERCENT 2 % (BEAKER) (test code = 431) EOSINOPHILS RELATIVE PERCENT 0 % (BEAKER) (test code = 432) BASOPHILS RELATIVE PERCENT 0 % (BEAKER) (test code = 437) NEUTROPHILS ABSOLUTE COUNT 13.60 K/ L 1.78-5.38 H (BEAKER) (test code = 670) LYMPHOCYTES ABSOLUTE COUNT 0.42 K/ L 1.32-3.57 L (BEAKER) (test code = 414) MONOCYTES ABSOLUTE COUNT (BEAKER) 0.28 K/ L 0.30-0.82 L (test code = 415) EOSINOPHILS ABSOLUTE COUNT 0.00 K/ L 0.04-0.54 L (BEAKER) (test code = 416) BASOPHILS ABSOLUTE COUNT (BEAKER) 0.02 K/ L 0.01-0.08 (test code = 417) IMMATURE GRANULOCYTES-RELATIVE 2 % 0-1 H PERCENT (BEAKER) (test code = 2801) POCT-GLUCOSE [id number] 17:32:52 Test Item Value Reference Range Interpretation Comments POC-GLUCOSE METER 216 mg/dL 70-110 H : TESTED A T [facility] 6720 (BEAKER) (test code = [place], 1538) 35519: Filler Block Inserter Remover/Techni dakota ID = [id number] for Kevin Smith RAD, SHOULDER, COMPLETE (MIN 2 VIEWS), [id number] 14:45:00Reason for exam:- >long term care phlebotomist steroid use, eval [facility] 2000 Sex: MFINAL REPORT CLINICAL HISTORY: custodial steroid use, eval AVN TECHNIQ UE: Three views of the bilateral shoulder COMPARISON: None IMPRESSION: No focal osseous lesions are seen in either shoulder. There is no fracture or dislocation. Signed: Darcie Williamson VerifiedDate/Time: 09/12/2021 14:45:48 Reading Location: [facility] Radiology Reading Room [facility] signed by: DARCIE WILLIAMSON M.D. on 09/12/2021 02:45 PMRAD, SHOULDER, COMPLETE (MIN 2 VIEWS), [id number] 14:45:00Reason for exam:->long term care phlebotomist steroid use, eval AV[facility] : 2000 Sex: MFINAL REPORT CLINICAL HISTORY: custodial steroid use, eval AVN TECHNIQ UE: Three views of the bilateral shoulder COMPARISON: None IMPRESSION: No focal osseous lesions are seen in either shoulder. There is no fracture or dislocation. Signed: Darcie Williamson [facility] VerifiedDate/Time: 09/12/2021 14:45:48 Reading Location: [facility] Radiology Reading Room [facility] signed by: DARCIE WILLIAMSON M.D. on 09/12/2021 02:45 PMRAD, HIPS, 2 VIEWS, [id number] 14:29:00Reason for exam:->custodial steroid use, eval AV[facility] : 2000 Sex: MFINAL REPORT CLINICAL HISTORY: custodial steroid use, eval AVN TECHNIQ UE: 2 views of the bilateral hips COMPARISON: None IMPRESSION: There is bilateral hip joint space narrowing. Subtle sclerosis and flattening of the left femoral head is suspected, possibly representingavascular necrosis given the clinical history. The right femoral head contour appears preserved. Signed: Darcie Williamson Verified Date/Time: 09/12/2021 14:29:16 Reading Location: [facility] Radiology Reading Room POCT-GLUCOSE [id number] 11:50:18 Test Item Value Reference Range Interpretation Comments POC-GLUCOSE METER 129 mg/dL 70-110 H : TESTED A T [facility] 6720 ([place]) (test code = [place], 1538) 50795: Filler Block Inserter Remover/Techni dakota ID = [id number] for Kevin Smith, HAND, 3 VIEWS, [id number] 11:47:00Reason for exam:->[facility] : 2000 Sex: MFINAL REPORT CLINICAL HISTORY: rheumatoid arthritis TECHNIQUE: 3 views of the bilateral hands COMPARISON: None IMPRESSION: Right hand: There is ulnar deviation at the fifth metacarpophalangeal joint. There slight boutonniere deformities of the fourth and fifth digits. There is periarticular osteopenia. There may be subtle erosions of the second and third metacarpal heads. Left hand: There is a subtle swan-neck deformity of the third digit. There is periarticular osteopenia. No discrete erosions are seen. Signed: Darcie Williamson Verified Date/Time: 09/12/2021 11:47:37 Reading Location: [facility] Radiology Reading Room POZO, 3 VIEWS, [id number] 11:47:00Reason for exam:->rheumatoid arthritis [facility] : 2000 Sex: MFINAL REPORT CLINICAL HISTORY: rheumatoid arthritis TECHNIQUE: 3 views of the bilateral hands COMPARISON: None IMPRESSION: Right hand: There is ulnar deviation at the fifth metacarpophalangeal joint. There slight boutonniere deformities of the fourth and fifth digits. There is periarticular osteopenia. There may be subtle erosions of the second and third metacarpal heads. Left hand: There is a subtle swan-neck deformity of the third digit. There is periarticular osteopenia. No discrete erosions are seen. Signed: Darcie Williamson Verified Date/Time: 09/12/2021 11:47:37 Reading Location: [facility] Radiology Reading Room POCT-GLUCOSE [id number] 10:21:03 Test Item Value Reference Range Interpretation Comments POC-GLUCOSE METER 88 mg/dL 70-110 : TESTED A T [facility] 6720 (BEAKER) (test code = RAYRAVINDRA [place], 1538) [id number]: Filler Block Inserter Remover/Techni dakota ID = [id number] for Destiny ie, Kevin PROTEIN, RANDOM [id number] 06:25:49 Test Item Value Reference Range Interpretation Comments PROTEIN, URINE (BEAKER) (test code 177 mg/dL 0-14 H = 1569) Filler Block Inserter Remover ID - DBCREATININE, RANDOM [id number] 06:25:48 Test Item Value Reference Range Interpretation Comments CREATININE URINE (BEAKER) (test 106.5 mg/dL code = 375) Reference Range: No NormalsOperator ID - DBPOCT-GLUCOSE [id number] 22:19:10 Test Item Value Reference Range Interpretation Comments POC-GLUCOSE METER 219 mg/dL 70-110 H : TESTED A T [facility] 6720 (BEAKER) (test code = DONNA Madird [place], 1538) [id number]: Filler Block Inserter Remover/Techni dakota ID = [id number] for Cherry Morrissey POCT-GLUCOSE [id number] 20:21:14 Test Item Value Reference Range Interpretation Comments POC-GLUCOSE METER 257 mg/dL 70-110 H : TESTED A T [facility] 6720 (BEAKER) (test code = [employer] [place], 1538) [address]99: Filler Block Inserter Remover/Techni dakota ID = [id number] for Deborah Martel CT, [id number] 16:58:00Unlisted Reason for Exam - Click Yes and Enter Reason Below->Noeval prior pancreatitis for further necrosis or abscess, worsening leukocytosis and tachycardiaIs this for enterography?->NoWill this procedure require oral contrast?->No [facility] : 2000 Sex: MFINAL REPORT CT, ABDOMEN \\T\\ PELVIS, WITH IV CONTRAST HISTORY: Abdomin al infection suspected COMPARISON: 09/04/2021 TECHNIQUE: CT of the abdomen and pelvis WITH intravenous contrast. The examination was performed according to the departmental dose-optimization program, which includes automated exposure control, adjustment of the mA and/or kV according to patient size and/or use of iterative reconstruction technique. FINDINGS: Lower thorax: Hyperattenuation in thedependent portion of the right lower lobe, unchanged, with partial bilateral lower lobe atelectasis and small to moderate bilateral pleural effusions which have slightly increased in size.Liver: Severeand diffuse hepatic steatosis.Gallbladder and bile ducts: Gallbladder sludge and otherwise unremarkable.Spleen: Moderately enlarged with punctate calcifications likely related to old granulomatous disease.Pancreas: Pancreatic edema.Adrenals: UnremarkableKidneys and ureters: Unremarkable.Bowel: The appendix is not visualized. No evidence for bowel obstruction. Loops of small bowel in the left half ofthe abdomen and some portions of the colon appears thick-walled, including the hepatic flexure, splenic flexure, and descending colonBladder: Unremarkable.Reproductive organs: Unremarkable.Lymph nodes: Unremarkable.Peritoneum and retroperitoneum: Moderate volume ascites. Mesenteric edema. Peripancreatic edema. No loculated drainable fluid collections.Vessels: Unremarkable.Abdominal wall: Body wall edema, asymmetric to the left.Bones: Unremarkable. IMPRESSION: 1.The amount of peripancreatic and mesenteric edema and size of the bilateral pleural effusions and ascites has increased from prior exam, without any loculated fluid collections 2.Loops of large and small bowel which appears thick-walled, could be infectious/inflammatory, reactive from pancreatitis or related to third spacing of fluid. 3.Partial bilateral lower lobe atelectasis, superimposed pneumonia not excluded. 4.Pancreatic edema has in creased from prior exam. 5.Other unchanged findings as above including severe hepatic steatosis Signed: Klaudia Novak Verified Date/Time: 09/11/2021 16:58:30 POCT-GLUCOSE [id number] 11:46:33 Test Item Value Reference Range Interpretation Comments POC-GLUCOSE METER 277 mg/dL 70-110 H : TESTED A T [facility] 6720 (BEAKER) (test code = [place], 1538) [address]: Filler Block Inserter Remover/Techni dakota ID = [id number] for EMMANUEL-SANIA JULIO, JO COMPREHENSIVE METABOLIC [id number] 10:25:23 Test Item Value Reference Range Interpretation Comments TOTAL PROTEIN 5.2 gm/dL 6.0-8.3 L (BEAKER) (test code = 770) ALBUMIN (BEAKER) 2.1 g/dL 3.5-5.0 L (test code = 1145) ALKALINE PHOSPHATASE 91 U/L 40-150 (BEAKER) (test code = 346) BILIRUBIN TOTAL 0.5 mg/dL 0.2-1.2 (BEAKER) (test code = 377) SODIUM (BEAKER) (test 134 meq/L 136-145 L code = 381) POTASSIUM (BEAKER) 3.6 meq/L 3.5-5.1 (test code = 379) CHLORIDE (BEAKER) 100 meq/L 98-107 (test code = 382) CO2 (BEAKER) (test 26 meq/L 22-29 code = 355) BLOOD UREA NITROGEN 16 mg/dL 7-21 (BEAKER) (test code = 354) CREATININE (BEAKER) 0.65 mg/dL 0.57-1.25 (test code = 358) GLUCOSE RANDOM 321 mg/dL 70-105 H (BEAKER) (test code = 652) CALCIUM (BEAKER) 7.7 mg/dL 8.4-10.2 L (test code = 697) AST (SGOT) (BEAKER) 37 U/L 5-34 H (test code = 353) ALT (SGPT) (BEAKER) 35 U/L 6-55 (test code = 347) EGFR (BEAKER) (test 157 ESTIMATE D GFR IS code = 1092) mL/min/1.73 sq NOT ACCURA TE m CREATININE CLEARANCE IN PREDICTING GLOMERULAR FILTRATION RATE . ESTIMATED GFR I S NOT APPLICABLE FOR DIALYSIS PATIEN TS. Filler Block Inserter Remover ID - [id number] 10:13:10 Test Item Value Reference Range Interpretation Comments MAGNESIUM (BEAKER) (test code = 1.9 mg/dL 1.6-2.6 627) Filler Block Inserter Remover ID - [id number] 10:13:10 Test Item Value Reference Range Interpretation Comments PHOSPHORUS (BEAKER) (test code = 2.5 mg/dL 2.3-4.7 604) Filler Block Inserter Remover ID - DBCBC W/PLT COUNT & AUTO [id number] 10:02:45 Test Item Value Reference Range Interpretation Comments WHITE BLOOD CELL COUNT (BEAKER) 12.4 K/ L 3.5-10.5 H (test code = 775) RED BLOOD CELL COUNT (BEAKER) 3.23 M/ L 4.63-6.08 L (test code = 761) HEMOGLOBIN (BEAKER) (test code = 7.6 GM/DL 13.7-17.5 L 410) HEMATOCRIT (BEAKER) (test code = 24.6 % 40.1-51.0 L 411) MEAN CORPUSCULAR VOLUME (BEAKER) 76.2 fL 79.0-92.2 L (test code = 753) MEAN CORPUSCULAR HEMOGLOBIN 23.5 pg 25.7-32.2 L (BEAKER) (test code = 751) MEAN CORPUSCULAR HEMOGLOBIN CONC 30.9 GM/DL 32.3-36.5 L (BEAKER) (test code = 752) RED CELL DISTRIBUTION WIDTH 21.2 % 11.6-14.4 H (BEAKER) (test code = 412) PLATELET COUNT (BEAKER) (test 186 K/CU MM 150-450 code = 756) MEAN PLATELET VOLUME (BEAKER) 11.6 fL 9.4-12.4 (test code = 754) NUCLEATED RED BLOOD CELLS 0 /100 WBC 0-0 (BEAKER) (test code = 413) NEUTROPHILS RELATIVE PERCENT 88 % (BEAKER) (test code = 429) LYMPHOCYTES RELATIVE PERCENT 4 % (BEAKER) (test code = 430) MONOCYTES RELATIVE PERCENT 3 % (BEAKER) (test code = 431) EOSINOPHILS RELATIVE PERCENT 0 % (BEAKER) (test code = 432) BASOPHILS RELATIVE PERCENT 0 % (BEAKER) (test code = 437) NEUTROPHILS ABSOLUTE COUNT 10.93 K/ L 1.78-5.38 H (BEAKER) (test code = 670) LYMPHOCYTES ABSOLUTE COUNT 0.53 K/ L 1.32-3.57 L (BEAKER) (test code = 414) MONOCYTES ABSOLUTE COUNT (BEAKER) 0.39 K/ L 0.30-0.82 (test code = 415) EOSINOPHILS ABSOLUTE COUNT 0.01 K/ L 0.04-0.54 L (BEAKER) (test code = 416) BASOPHILS ABSOLUTE COUNT (BEAKER) 0.02 K/ L 0.01-0.08 (test code = 417) IMMATURE GRANULOCYTES-RELATIVE 4 % 0-1 H PERCENT (BEAKER) (test code = 2801) POCT-GLUCOSE [id number] 07:31:40 Test Item Value Reference Range Interpretation Comments POC-GLUCOSE METER 310 mg/dL 70-110 H : TESTED A T [facility] 6720 (BEAKER) (test code = [place] [facility], 1538) 47[address]: Filler Block Inserter Remover/Techni dakota ID = [id number] for JO MILLER BLOOD [id number] 03:00:54 Test Item Value Reference Range Interpretation Comments CULTURE (BEAKER) (test No growth in 5 days code = 1095) BLOOD [id number] 03:00:53 Test Item Value Reference Range Interpretation Comments CULTURE (BEAKER) (test No growth in 5 days code = 1095) POCT-GLUCOSE [id number] 21:11:52 Test Item Value Reference Range Interpretation Comments POC-GLUCOSE METER 286 mg/dL 70-110 H : TESTED A T [facility] 6720 (BEAKER) (test code [facility], = 1538) 81614: Filler Block Inserter Remover/Techni dakota ID = [id number] for BERNY SMYTH [id number] 12:52:50 Test Item Value Reference Range Interpretation Comments PROCALCITONIN (BEAKER) (test code 5.84 ng/mL <0.05 H = 3036) SEPSIS RISK (ng/mL)Low: 0.05-0.50Intermediate: 0.51-2.00High: >=[id number] 12:05:26 Test Item Value Reference Range Interpretation Comments PARTIAL THROMBOPLASTIN TIME 27.5 seconds 22.5-36.0 (BEAKER) (test code = 760) PROTHROMBIN TIME/[id number] 12:04:41 Test Item Value Reference Range Interpretation Comments PROTIME (BEAKER) 16.4 seconds 11.9-14.2 H (test code = 759) INR (BEAKER) (test 1.34 See_Comment [Automat ed message] code = 370) The system [employer] generated this result transmitted ref erence range: <=5.90. The reference range was not used to int erpret this result as normal/abnormal . RECOMMENDED COUMADIN/WARFARIN INR THERAPY RANGESSTANDARD DOSE: 2.0 - 3.0 Includes: PROPHYLAXIS forvenous thrombosis, systemic embolization; TREATMENT for venous thrombosis and/or pulmonary embolus.HIGH RISK: Target INR is 2.5-3.5 for patients with mechanical heart valves.LACTIC ACID, [id number] 11:42:21 Test Item Value Reference Range Interpretation Comments LACTATE BLOOD VENOUS 1.13 mmol/L 0.50-2.20 Specime n slightly (2) (BEAKER) (test hemolyzed code = 2872) Filler Block Inserter Remover ID - DBRAD, CHEST, 1 VIEW, NON [id number] 09:41:00Reason for exam:- >eval for pnaShould this be performed at the bedside?->Yes [facility] : 2000 Sex: MFINAL REPORT Chest, one view HISTORY: Evaluate for pneumonia Compariso n: 09/07/2021 Findings: Lungs: Mild bilateral interstitial opacities, likely pulmonary venous congestion. Stable bibasilar airspace disease. Heart: Normal in size. Pleura: Moderate right and small left pleural effusions, similar to previous examination. No pneumothorax is apparent. Bones: Unremarkable. Lines/tubes: Previous feeding tube has been removed. Signed: Taz Lunsford MDReport Verified Date/Time: 09/10/2021 09:41:13 Reading Location: [address] Reading Room (CELLAVISION MANUAL DIFF)2021-09-10 07:30:15 Test Item Value Reference Range Interpretation Comments NEUTROPHILS - REL 94 % (CELLAVISION)(BEAKER) (test code = 2816) LYMPHOCYTES - REL 3 % (CELLAVISION)(BEAKER) (test code = 2817) MONOCYTES - REL 3 % (CELLAVISION)(BEAKER) (test code = 2818) NEUTROPHILS - ABS 17.58 K/ul 1.78-5.38 H (CELLAVISION)(BEAKER) (test code = 2830) LYMPHOCYTES - ABS 0.56 K/ul 1.32-3.57 L (CELLAVISION)(BEAKER) (test code = 2831) MONOCYTES - ABS 0.56 K/uL 0.30-0.82 (CELLAVISION)(BEAKER) (test code = 2832) TOTAL COUNTED (BEAKER) (test code 100 = 1351) MANUAL NRBC PER 100 CELLS 2 /100 WBC 0-0 H (BEAKER) (test code = 1353) PLT MORPHOLOGY (BEAKER) (test Normal code = 486) TOXIC GRANULATION (BEAKER) (test Present code = 771) POLYCHROMATOPHILLIC RBCS(BEAKER) 3+ many (test code = 478) HYPOCHROMIA (BEAKER) (test code = 1+ few 963) ANISOCYTOSIS (BEAKER) (test code 3+ many = 961) MICROCYTES (BEAKER) (test code = 3+ many 965) POIKILOCYTES (BEAKER) (test code 2+ moderate = 966) OVALOCYTES (BEAKER) (test code = 2+ moderate 477) TEAR DROP CELLS (BEAKER) (test 1+ few code = 481) ARTIFACT (CELLAVISION)(BEAKER) Present (test code = 3432) PLATELET CONCENTRATION Adequate (CELLAVISION)(BEAKER) (test code = 3438) Filler Block Inserter Remover ID - [id number] ID - Rebecca Elizondo comments: Slide comments: CBC W/PLT COUNT & AUTO [id number] 07:30:14 Test Item Value Reference Range Interpretation Comments WHITE BLOOD CELL COUNT (BEAKER) 18.7 K/ L 3.5-10.5 H (test code = 775) RED BLOOD CELL COUNT (BEAKER) 3.98 M/ L 4.63-6.08 L (test code = 761) HEMOGLOBIN (BEAKER) (test code = 9.2 GM/DL 13.7-17.5 L 410) HEMATOCRIT (BEAKER) (test code = 29.3 % 40.1-51.0 L 411) MEAN CORPUSCULAR VOLUME (BEAKER) 73.6 fL 79.0-92.2 L (test code = 753) MEAN CORPUSCULAR HEMOGLOBIN 23.1 pg 25.7-32.2 L (BEAKER) (test code = 751) MEAN CORPUSCULAR HEMOGLOBIN CONC 31.4 GM/DL 32.3-36.5 L (BEAKER) (test code = 752) RED CELL DISTRIBUTION WIDTH 20.9 % 11.6-14.4 H (BEAKER) (test code = 412) PLATELET COUNT (BEAKER) (test 187 K/CU MM 150-450 code = 756) MEAN PLATELET VOLUME (BEAKER) 11.5 fL 9.4-12.4 (test code = 754) NUCLEATED RED BLOOD CELLS 1 /100 WBC 0-0 H (BEAKER) (test code = 413) COMPREHENSIVE METABOLIC [id number] 05:40:15 Test Item Value Reference Range Interpretation Comments TOTAL PROTEIN 4.9 gm/dL 6.0-8.3 L (BEAKER) (test code = 770) ALBUMIN (BEAKER) 1.9 g/dL 3.5-5.0 L (test code = 1145) ALKALINE PHOSPHATASE 97 U/L 40-150 (BEAKER) (test code = 346) BILIRUBIN TOTAL 0.7 mg/dL 0.2-1.2 (BEAKER) (test code = 377) SODIUM (BEAKER) (test 136 meq/L 136-145 code = 381) POTASSIUM (BEAKER) 3.5 meq/L 3.5-5.1 (test code = 379) CHLORIDE (BEAKER) 105 meq/L 98-107 (test code = 382) CO2 (BEAKER) (test 22 meq/L 22-29 code = 355) BLOOD UREA NITROGEN 12 mg/dL 7-21 (BEAKER) (test code = 354) CREATININE (BEAKER) 0.56 mg/dL 0.57-1.25 L (test code = 358) GLUCOSE RANDOM 114 mg/dL 70-105 H (BEAKER) (test code = 652) CALCIUM (BEAKER) 7.3 mg/dL 8.4-10.2 L (test code = 697) AST (SGOT) (BEAKER) 63 U/L 5-34 H (test code = 353) ALT (SGPT) (BEAKER) 42 U/L 6-55 (test code = 347) EGFR (BEAKER) (test 186 ESTIMATE D GFR IS code = 1092) mL/min/1.73 sq NOT ACCURA TE m CREATININE CLEARANCE IN PREDICTING GLOMERULAR FILTRATION RATE . ESTIMATED GFR I S NOT APPLICABLE FOR DIALYSIS PATIEN TS. Filler Block Inserter Remover ID - PIJOIV [id number] 05:38:41 Test Item Value Reference Range Interpretation Comments MAGNESIUM (BEAKER) (test code = 1.5 mg/dL 1.6-2.6 L 627) Filler Block Inserter Remover ID - MAILEJOVI [id number] 05:38:41 Test Item Value Reference Range Interpretation Comments PHOSPHORUS (BEAKER) (test code = 1.7 mg/dL 2.3-4.7 L 604) Filler Block Inserter Remover ID - MARIBEL LPOCT-GLUCOSE [id number] 21:08:40 Test Item Value Reference Range Interpretation Comments POC-GLUCOSE METER 113 mg/dL 70-110 H : TESTED A T [facility] 6720 (BEAKER) (test code = [facility], 1538) 34376: Filler Block Inserter Remover/Techni dakota ID = [id number] for SOMMER LYNN POCT-GLUCOSE [id number] 16:29:13 Test Item Value Reference Range Interpretation Comments POC-GLUCOSE METER 123 mg/dL 70-110 H : TESTED A T [facility] 6720 (BEAKER) (test code = [facility], 1538) 55111: Filler Block Inserter Remover/Techni dakota ID = [id number] for JO MILLER COMPREHENSIVE METABOLIC [id number] 15:30:31 Test Item Value Reference Range Interpretation Comments TOTAL PROTEIN 5.5 gm/dL 6.0-8.3 L Specimen sligh tly (BEAKER) (test code = hemoly zed 770) ALBUMIN (BEAKER) 2.1 g/dL 3.5-5.0 L Specimen sl ightly (test code = 1145) hemolyzed ALKALINE PHOSPHATASE 84 U/L 40-150 (BEAKER) (test code = 346) BILIRUBIN TOTAL 0.6 mg/dL 0.2-1.2 Specimen sli ghtly (BEAKER) (test code = hemoly zed 377) SODIUM (BEAKER) (test 136 meq/L 136-145 code = 381) POTASSIUM (BEAKER) 3.4 meq/L 3.5-5.1 L Specimen slightly (test code = 379) hemolyzed CHLORIDE (BEAKER) 104 meq/L 98-107 (test code = 382) CO2 (BEAKER) (test 24 meq/L 22-29 code = 355) BLOOD UREA NITROGEN 11 mg/dL 7-21 (BEAKER) (test code = 354) CREATININE (BEAKER) 0.49 mg/dL 0.57-1.25 L Specimen slightly (test code = 358) hemolyzed GLUCOSE RANDOM 123 mg/dL 70-105 H (BEAKER) (test code = 652) CALCIUM (BEAKER) 7.4 mg/dL 8.4-10.2 L (test code = 697) AST (SGOT) (BEAKER) 69 U/L 5-34 H Specimen slightly (test code = 353) hemolyzed ALT (SGPT) (BEAKER) 46 U/L 6-55 Specimen slightly (test code = 347) hemolyzed EGFR (BEAKER) (test 217 ESTIMATE D GFR IS code = 1092) mL/min/1.73 sq NOT ACCURA TE m CREATININE CLEARANCE IN PREDICTING GLOMERULAR FILTRATION RATE . ESTIMATED GFR I S NOT APPLICABLE FOR DIALYSIS PATIEN TS. Filler Block Inserter Remover ID - ALVINA MPOCT-GLUCOSE [id number] 11:38:39 Test Item Value Reference Range Interpretation Comments POC-GLUCOSE METER 137 mg/dL 70-110 H : TESTED A T [facility] 6720 (BEAKER) (test code = [facility], 1538) 78492: Filler Block Inserter Remover/Techni dakota ID = [id number] for JO MILLER POCT-GLUCOSE [id number] 06:55:56 Test Item Value Reference Range Interpretation Comments POC-GLUCOSE METER 151 mg/dL 70-110 H : TESTED A T [facility] 6720 (BEAKER) (test code = [facility], 1538) 76513: Filler Block Inserter Remover/Techni dakota ID = [id number] for KAVITHA ESCOBAR POCT-GLUCOSE [id number] 21:19:46 Test Item Value Reference Range Interpretation Comments POC-GLUCOSE METER 174 mg/dL 70-110 H : TESTED A T [facility] 6720 (BEAKER) (test code = [facility], 1538) 78633: Filler Block Inserter Remover/Techni dakota ID = [id number] for KAVITHA ESCOBAR POCT-GLUCOSE [id number] 19:52:47 Test Item Value Reference Range Interpretation Comments POC-GLUCOSE METER 173 mg/dL 70-110 H : TESTED A T [facility] 6720 (BEAKER) (test code = [facility], 1538) 59759: Filler Block Inserter Remover/Techni dakota ID = [id number] for JENNIFER ARCINIEGA MRSA [id number] 15:07:47 Test Item Value Reference Range Interpretation Comments CULTURE ([facility]) (test code No MRSA isolated = 1095) POCT-GLUCOSE [id number] 11:36:26 Test Item Value Reference Range Interpretation Comments POC-GLUCOSE METER 268 mg/dL 70-110 H : TESTED A T [facility] 6720 (BEAKER) (test code = [facility], 1538) 24557: Filler Block Inserter Remover/Techni dakota ID = [id number] for JENNIFER ARCINIEGA POCT-GLUCOSE [id number] 09:21:21 Test Item Value Reference Range Interpretation Comments POC-GLUCOSE METER 283 mg/dL 70-110 H : TESTED A T [facility] 6720 (BEAKER) (test code = [facility], 1538) 92754: Filler Block Inserter Remover/Techni dakota ID = [id number] for JENNIFER ARCINIEGA ANTI-MITOCHONDRIAL AB, REFLEX TO [id number] 07:58:16 Test Item Value Reference Range Interpretation Comments SCAN RESULT (test code = 1742553) POCT-GLUCOSE [id number] 05:15:53 Test Item Value Reference Range Interpretation Comments POC-GLUCOSE METER 266 mg/dL 70-110 H : TESTED A T [facility] 6720 (BEAKER) (test code = [facility], 1538) 47473: Filler Block Inserter Remover/Techni dakota ID = [id number] for KAVITHA ESCOBAR COMPREHENSIVE METABOLIC [id number] 04:59:08 Test Item Value Reference Range Interpretation Comments TOTAL PROTEIN 5.5 gm/dL 6.0-8.3 L (BEAKER) (test code = 770) ALBUMIN (BEAKER) 2.1 g/dL 3.5-5.0 L (test code = 1145) ALKALINE PHOSPHATASE 76 U/L 40-150 (BEAKER) (test code = 346) BILIRUBIN TOTAL 0.7 mg/dL 0.2-1.2 (BEAKER) (test code = 377) SODIUM (BEAKER) (test 134 meq/L 136-145 L code = 381) POTASSIUM (BEAKER) 3.3 meq/L 3.5-5.1 L (test code = 379) CHLORIDE (BEAKER) 102 meq/L 98-107 (test code = 382) CO2 (BEAKER) (test 22 meq/L 22-29 code = 355) BLOOD UREA NITROGEN 13 mg/dL 7-21 (BEAKER) (test code = 354) CREATININE (BEAKER) 0.55 mg/dL 0.57-1.25 L (test code = 358) GLUCOSE RANDOM 286 mg/dL 70-105 H (BEAKER) (test code = 652) CALCIUM (BEAKER) 7.6 mg/dL 8.4-10.2 L (test code = 697) AST (SGOT) (BEAKER) 38 U/L 5-34 H (test code = 353) ALT (SGPT) (BEAKER) 31 U/L 6-55 (test code = 347) EGFR (BEAKER) (test 190 ESTIMATE D GFR IS code = 1092) mL/min/1.73 sq NOT ACCURA TE m CREATININE CLEARANCE IN PREDICTING GLOMERULAR FILTRATION RATE . ESTIMATED GFR I S NOT APPLICABLE FOR DIALYSIS PATIEN TS. Filler Block Inserter Remover ID - ALVINA [id number] 04:55:48 Test Item Value Reference Range Interpretation Comments MAGNESIUM (BEAKER) (test code = 1.7 mg/dL 1.6-2.6 627) Filler Block Inserter Remover ID - ALVINA [id number] 04:55:48 Test Item Value Reference Range Interpretation Comments PHOSPHORUS (BEAKER) (test code = 1.6 mg/dL 2.3-4.7 L 604) Filler Block Inserter Remover ID - ALVINA MCBC W/PLT COUNT & AUTO [id number] 04:52:53 Test Item Value Reference Range Interpretation Comments WHITE BLOOD CELL COUNT (BEAKER) 11.1 K/ L 3.5-10.5 H (test code = 775) RED BLOOD CELL COUNT (BEAKER) 3.31 M/ L 4.63-6.08 L (test code = 761) HEMOGLOBIN (BEAKER) (test code = 7.7 GM/DL 13.7-17.5 L 410) HEMATOCRIT (BEAKER) (test code = 24.3 % 40.1-51.0 L 411) MEAN CORPUSCULAR VOLUME (BEAKER) 73.4 fL 79.0-92.2 L (test code = 753) MEAN CORPUSCULAR HEMOGLOBIN 23.3 pg 25.7-32.2 L (BEAKER) (test code = 751) MEAN CORPUSCULAR HEMOGLOBIN CONC 31.7 GM/DL 32.3-36.5 L (BEAKER) (test code = 752) RED CELL DISTRIBUTION WIDTH 19.9 % 11.6-14.4 H (BEAKER) (test code = 412) PLATELET COUNT (BEAKER) (test 142 K/CU MM 150-450 L code = 756) MEAN PLATELET VOLUME (BEAKER) 11.0 fL 9.4-12.4 (test code = 754) NUCLEATED RED BLOOD CELLS 0 /100 WBC 0-0 (BEAKER) (test code = 413) NEUTROPHILS RELATIVE PERCENT 90 % (BEAKER) (test code = 429) LYMPHOCYTES RELATIVE PERCENT 3 % (BEAKER) (test code = 430) MONOCYTES RELATIVE PERCENT 5 % (BEAKER) (test code = 431) EOSINOPHILS RELATIVE PERCENT 0 % (BEAKER) (test code = 432) BASOPHILS RELATIVE PERCENT 0 % (BEAKER) (test code = 437) NEUTROPHILS ABSOLUTE COUNT 9.92 K/ L 1.78-5.38 H (BEAKER) (test code = 670) LYMPHOCYTES ABSOLUTE COUNT 0.33 K/ L 1.32-3.57 L (BEAKER) (test code = 414) MONOCYTES ABSOLUTE COUNT (BEAKER) 0.50 K/ L 0.30-0.82 (test code = 415) EOSINOPHILS ABSOLUTE COUNT 0.00 K/ L 0.04-0.54 L (BEAKER) (test code = 416) BASOPHILS ABSOLUTE COUNT (BEAKER) 0.01 K/ L 0.01-0.08 (test code = 417) IMMATURE GRANULOCYTES-RELATIVE 3 % 0-1 H PERCENT (BEAKER) (test code = 2801) POCT-GLUCOSE [id number] 23:21:41 Test Item Value Reference Range Interpretation Comments POC-GLUCOSE METER 268 mg/dL 70-110 H : TESTED A T [facility] 6720 (BEAKER) (test code = [facility], 1538) 88010: Filler Block Inserter Remover/Techni dakota ID = [id number] for KAVITHA ESCOBAR POCT-GLUCOSE [id number] 18:55:01 Test Item Value Reference Range Interpretation Comments POC-GLUCOSE METER 240 mg/dL 70-110 H : TESTED A T [facility] 6720 (BEAKER) (test code = [facility], 1538) 98561: Filler Block Inserter Remover/Techni dakota ID = [id number] for Isiah Porter PERIPHERAL BLOOD SMEAR - PATHOLOGIST [id number] 16:19:01 Test Item Value Reference Range Interpretation Comments RBC MORPHOLOGY See comment Microcytic, (BEAKER) (test hypochromic a nemia code = 2846) with moderate anisocytosis an d mild poikilocytosis, including occasional elliptocytes an d rare dacrocytes . Only rare schistocytes present. Incre ased polychromasia. WBC MORPHOLOGY See comment Increased. (BEAKER) (test Predominately code = 2847) comprised by granulocytes wi th mild left shift . No overt blasts identified. Lymphocytes wit h reactive forms present. PLT MORPHOLOGY No Clumping (BEAKER) (test code = 2848) PLT MORPHOLOGY No Satellitosis (BEAKER) (test code = 102752) PLT MORPHOLOGY See comment Decreased in number (BEAKER) (test with normal code = 507137) morphology. Rare to Occasional l arge forms. [facility]-PATHOLOGIST- Yvan Campoverde MD 6112 (BEAKER) (electronic (test code = signature) 2840) URINALYSIS W/ REFLEX URINE [id number] 14:42:51 Test Item Value Reference Range Interpretation Comments COLOR (BEAKER) (test code = 470) Yellow CLARITY (BEAKER) (test code = 469) Clear SPECIFIC GRAVITY UA (BEAKER) (test 1.025 1.001-1.035 code = 468) PH UA (BEAKER) (test code = 467) 6.0 5.0-8.0 PROTEIN UA (BEAKER) (test code = 100 mg/dL Negative A 464) GLUCOSE UA (BEAKER) (test code = 70 mg/dL Negative A 365) KETONES UA (BEAKER) (test code = 40 mg/dL Negative A 371) BILIRUBIN UA (BEAKER) (test code = Negative Negative 462) BLOOD UA (BEAKER) (test code = 461) Large Negative A NITRITE UA (BEAKER) (test code = Negative Negative 465) LEUKOCYTE ESTERASE UA (BEAKER) Negative Negative (test code = 466) UROBILINOGEN UA (BEAKER) (test code 0.2 mg/dL 0.2-1.0 = 463) RBC UA (BEAKER) (test code = 519) 30 /HPF WBC UA (BEAKER) (test code = 520) 7 /HPF BACTERIA (BEAKER) (test code = 517) None Seen MUCUS (BEAKER) (test code = 1574) Few HYALINE CASTS (BEAKER) (test code = 1 /LPF 514) CASTS (BEAKER) (test code = 1579) 3 /LPF CRYSTALS, URINE (BEAKER) (test code None Seen = 1521) SOURCE(BEAKER) (test code = 2795) Filler Block Inserter Remover ID - [auto]Filler Block Inserter Remover ID - [id number] 13:45:54 Test Item Value Reference Range Interpretation Comments PROCALCITONIN (BEAKER) (test code 41.89 ng/mL <0.05 HH = 3036) SEPSIS RISK (ng/mL)Low: 0.05-0.50Intermediate: 0.51-2.00High: >=[id number] 13:10:47 Test Item Value Reference Range Interpretation Comments HAPTOGLOBIN (BEAKER) (test code = 367 mg/dL 14-258 H 366) Filler Block Inserter Remover ID - BSOperator ID - BSCOMPREHENSIVE METABOLIC [id number] 12:56:57 Test Item Value Reference Range Interpretation Comments TOTAL PROTEIN 5.7 gm/dL 6.0-8.3 L Specimen sligh tly (BEAKER) (test code = hemoly zed 770) ALBUMIN (BEAKER) 2.1 g/dL 3.5-5.0 L Specimen sl ightly (test code = 1145) hemolyzed ALKALINE PHOSPHATASE 83 U/L 40-150 (BEAKER) (test code = 346) BILIRUBIN TOTAL 0.8 mg/dL 0.2-1.2 Specimen sli ghtly (BEAKER) (test code = hemoly zed 377) SODIUM (BEAKER) (test 133 meq/L 136-145 L code = 381) POTASSIUM (BEAKER) 4.0 meq/L 3.5-5.1 Specimen slightly (test code = 379) hemolyzed CHLORIDE (BEAKER) 100 meq/L 98-107 (test code = 382) CO2 (BEAKER) (test 21 meq/L 22-29 L code = 355) BLOOD UREA NITROGEN 14 mg/dL 7-21 (BEAKER) (test code = 354) CREATININE (BEAKER) 0.62 mg/dL 0.57-1.25 Specimen slightly (test code = 358) hemolyzed GLUCOSE RANDOM 173 mg/dL 70-105 H (BEAKER) (test code = 652) CALCIUM (BEAKER) 7.5 mg/dL 8.4-10.2 L (test code = 697) AST (SGOT) (BEAKER) 41 U/L 5-34 H Specimen slightly (test code = 353) hemolyzed ALT (SGPT) (BEAKER) 31 U/L 6-55 Specimen slightly (test code = 347) hemolyzed EGFR (BEAKER) (test 165 ESTIMATE D GFR IS code = 1092) mL/min/1.73 sq NOT ACCURA TE m CREATININE CLEARANCE IN PREDICTING GLOMERULAR FILTRATION RATE . ESTIMATED GFR I S NOT APPLICABLE FOR DIALYSIS PATIEN TS. Filler Block Inserter Remover ID - BSHEPATIC FUNCTION [id number] 12:56:40 Test Item Value Reference Range Interpretation Comments TOTAL PROTEIN (BEAKER) 5.7 gm/dL 6.0-8.3 L Speci men slightly (test code = 770) hemolyzed ALBUMIN (BEAKER) (test 2.1 g/dL 3.5-5.0 L Speci men slightly code = 1145) hemolyzed BILIRUBIN TOTAL 0.8 mg/dL 0.2-1.2 Specimen sli ghtly (BEAKER) (test code = hemoly zed 377) BILIRUBIN DIRECT 0.5 mg/dL 0.1-0.5 Specimen sl ightly (BEAKER) (test code = hemoly zed 706) ALKALINE PHOSPHATASE 83 U/L 40-150 (BEAKER) (test code = 346) AST (SGOT) (BEAKER) 41 U/L 5-34 H Specimen slightly (test code = 353) hemolyzed ALT (SGPT) (BEAKER) 31 U/L 6-55 Specimen slightly (test code = 347) hemolyzed Filler Block Inserter Remover ID - [id number] 12:56:40 Test Item Value Reference Range Interpretation Comments LIPASE (BEAKER) (test code = 749) 132 U/L 8-78 H Filler Block Inserter Remover ID - [id number] 12:56:39 Test Item Value Reference Range Interpretation Comments MAGNESIUM (BEAKER) 1.9 mg/dL 1.6-2.6 Specimen slightly (test code = 627) hemolyzed Filler Block Inserter Remover ID - [id number] 12:56:39 Test Item Value Reference Range Interpretation Comments PHOSPHORUS (BEAKER) 2.9 mg/dL 2.3-4.7 Specimen slightly (test code = 604) hemolyzed Filler Block Inserter Remover ID - BSVANCOMYCIN LEVEL, [id number] 12:51:35 Test Item Value Reference Range Interpretation Comments VANCOMYCIN TROUGH (BEAKER) (test 14.4 ug/mL 10.0-20.0 code = 522) Filler Block Inserter Remover ID - [id number] 12:43:54 Test Item Value Reference Range Interpretation Comments FIBRINOGEN LEVEL (BEAKER) (test 715 mg/dl 225-434 H code = 658) HEMOGLOBIN AND [id number] 12:34:38 Test Item Value Reference Range Interpretation Comments HEMOGLOBIN (BEAKER) (test code = 8.0 GM/DL 13.7-17.5 L 410) HEMATOCRIT (BEAKER) (test code = 26.2 % 40.1-51.0 L 411) Filler Block Inserter Remover ID - 6000POCT-GLUCOSE [id number] 12:12:10 Test Item Value Reference Range Interpretation Comments POC-GLUCOSE METER 152 mg/dL 70-110 H : TESTED A T [facility] 6720 (BEAKER) (test code = [place], 1538) [address]: Filler Block Inserter Remover/Techni dakota ID = [id number] for Patrick Perez ANTI-DNA [id number] 11:19:56 Test Item Value Reference Range Interpretation Comments ANTI-DNA TITER (BEAKER) (test code = :80 1553) DOUBLE-STRANDED DNA (DSDNA) [id number] 11:19:49 Test Item Value Reference Range Interpretation Comments ANTI-DNA DS (BEAKER) (test code = Positive Negative 1055) ANTI-DNA [id number] 11:19:10 Test Item Value Reference Range Interpretation Comments ANTI-DNA TITER (BEAKER) (test code = :80 1553) DOUBLE-STRANDED DNA (DSDNA) [id number] 11:19:04 Test Item Value Reference Range Interpretation Comments ANTI-DNA DS (BEAKER) (test code = Positive Negative 1055) LACTATE DEHYDROGENASE (LDH)2021-09-07 10:00:12 Test Item Value Reference Range Interpretation Comments LACTATE DEHYDROGENASE (BEAKER) (test 723 U/L 125-220 H code = 635) Filler Block Inserter Remover ID - BSBILIRUBIN, [id number] 10:00:11 Test Item Value Reference Range Interpretation Comments BILIRUBIN DIRECT (BEAKER) (test 0.8 mg/dL 0.1-0.5 H code = 706) Filler Block Inserter Remover ID - BSCBC W/PLT COUNT & AUTO [id number] 08:25:03 Test Item Value Reference Range Interpretation Comments WHITE BLOOD CELL COUNT (BEAKER) 11.4 K/ L 3.5-10.5 H (test code = 775) RED BLOOD CELL COUNT (BEAKER) 3.21 M/ L 4.63-6.08 L (test code = 761) HEMOGLOBIN (BEAKER) (test code = 7.6 GM/DL 13.7-17.5 L 410) HEMATOCRIT (BEAKER) (test code = 23.9 % 40.1-51.0 L 411) MEAN CORPUSCULAR VOLUME (BEAKER) 74.5 fL 79.0-92.2 L (test code = 753) MEAN CORPUSCULAR HEMOGLOBIN 23.7 pg 25.7-32.2 L (BEAKER) (test code = 751) MEAN CORPUSCULAR HEMOGLOBIN CONC 31.8 GM/DL 32.3-36.5 L (BEAKER) (test code = 752) RED CELL DISTRIBUTION WIDTH 19.9 % 11.6-14.4 H (BEAKER) (test code = 412) PLATELET COUNT (BEAKER) (test 109 K/CU MM 150-450 L code = 756) MEAN PLATELET VOLUME (BEAKER) 11.4 fL 9.4-12.4 (test code = 754) NUCLEATED RED BLOOD CELLS 0 /100 WBC 0-0 (BEAKER) (test code = 413) (CELLAVISION MANUAL DIFF)2021-09-07 08:25:03 Test Item Value Reference Range Interpretation Comments NEUTROPHILS - REL 93 % (CELLAVISION)(BEAKER) (test code = 2816) LYMPHOCYTES - REL 6 % (CELLAVISION)(BEAKER) (test code = 2817) MONOCYTES - REL 1 % (CELLAVISION)(BEAKER) (test code = 2818) NEUTROPHILS - ABS 10.60 K/ul 1.78-5.38 H (CELLAVISION)(BEAKER) (test code = 2830) LYMPHOCYTES - ABS 0.68 K/ul 1.32-3.57 L (CELLAVISION)(BEAKER) (test code = 2831) MONOCYTES - ABS 0.11 K/uL 0.30-0.82 L (CELLAVISION)(BEAKER) (test code = 2832) TOTAL COUNTED (BEAKER) (test code 100 = 1351) MANUAL NRBC PER 100 CELLS 1 /100 WBC 0-0 H (BEAKER) (test code = 1353) WBC MORPHOLOGY (BEAKER) (test Normal code = 487) LARGE PLT(BEAKER) (test code = Present 2156) POLYCHROMATOPHILLIC RBCS(BEAKER) 1+ few (test code = 478) ANISOCYTOSIS (BEAKER) (test code 2+ moderate = 961) MICROCYTES (BEAKER) (test code = 2+ moderate 965) MACROCYTES (BEAKER) (test code = 1+ few 964) POIKILOCYTES (BEAKER) (test code 2+ moderate = 966) SPHEROCYTES (BEAKER) (test code = 2+ moderate 768) OVALOCYTES (BEAKER) (test code = 1+ few 477) ARTIFACT (CELLAVISION)(BEAKER) Present (test code = 3572) PLATELET CONCENTRATION Decreased (CELLAVISION)([facility]) (test code = 3438) Filler Block Inserter Remover ID - [id number] ID - Kyree comments: Slide comments:B-TYPE NATRIURETIC FACTOR (BNP)2021-09-07 06:31:12 Test Item Value Reference Range Interpretation Comments B-TYPE NATRIURETIC PEPTIDE (BEAKER) 269 pg/mL 0-100 H (test code = 700) Filler Block Inserter Remover ID - BSLACTIC ACID, [id number] 06:10:21 Test Item Value Reference Range Interpretation Comments LACTATE BLOOD VENOUS (2) (AKER) 0.76 mmol/L 0.50-2.20 (test code = 2872) Filler Block Inserter Remover ID - [id number] 03:08:41 Test Item Value Reference Range Interpretation Comments POC-HEMATOCRIT 21 % 40-50 L : Filler Block Inserter Remover/Te chnician ID = ([facility]) (test code = 738569 for URCIA, FAMELA 1857) [id number] 03:08:41 Test Item Value Reference Range Interpretation Comments POC-GLUCOSE ([facility]) 153 mg/dL 70-110 H : TESTE D AT [place] [address] (test code = 1855) ATTILA Gamble [facility] [place], [address]: Filler Block Inserter Remover/Techni dakota ID = [id number] for URCI A, FAMELA [id number]-[id number] 03:08:40 Test Item Value Reference Range Interpretation Comments POC-POTASSIUM 3.8 meq/L 3.6-5.5 : TESTED AT [place] [address] ([facility]) (test code ATTILA [facility], = 1540) [address]: Filler Block Inserter Remover/Techni dakota ID = [id number] for URCI A, FAMELA [id number] 03:08:40 Test Item Value Reference Range Interpretation Comments POC-HEMOGLOBIN 7.1 g/dL 13.0-16.8 L : TESTED AT [facility] 67 ([facility]) (test code = [place] [facility], 1856) [address]: Filler Block Inserter Remover/Techni dakota ID = [id number] for URCI A, FAMELA POCT-BLOOD GASES, [id number] 03:08:39 Test Item Value Reference Range Interpretation Comments TEMP, CELSIUS-POC 97.2 ([facility]) (test code = 1834) FIO2-POC (BEAKER) 54 (test code = 1835) PH, ARTERIAL-POC 7.429 7.350-7.450 (BEAKER) (test code = 1836) PCO2, ARTERIAL-POC 33.3 mm Hg 35.0-45.0 L If pO2 is >180, pCO2 may (BEAKER) (test code be posit ively biased = 1837) PO2, ARTERIAL-POC 55.0 mm Hg 80.0-90.0 L (BEAKER) (test code = 1838) SO2, ARTERIAL-POC 91.0 % 96.0-97.0 L (BEAKER) (test code = 1839) HCO3, ARTERIAL-POC 22.2 meq/L 21.0-29.0 (BEAKER) (test code = 1840) BASE EXCESS, -2.0 meq/L -2.0-3.0 : TESTED AT [facility] 6720 ARTERIAL-POC [facility], (BEAKER) (test code [address]: = 1841) Filler Block Inserter Remover/Techni dakota ID = [id number] for URCI A, FAMELA [id number] 03:08:39 Test Item Value Reference Range Interpretation Comments POC-SODIUM (BEAKER) 134 meq/L 135-148 L : TESTED AT [facility] 6720 (test code = 1542) [facility], [address]: Filler Block Inserter Remover/Techni dakota ID = [id number] for URCI A, FAMELA RAD, CHEST, 1 VIEW, NON [id number] 03:00:00Reason for exam:- >destaurationShould this be performed at the bedside?->Yes [facility] : 2000 Sex: MFINAL REPORT RAD, CHEST, 1 VIEW, NON DEPT INDICATION: desaturation COM PARISON: Prior day's exam FINDINGS: Portable frontal view of the chest. IMPRESSION: Support Lines: Stable feeding tube. Lungs and pleura: Unchanged hypoinflated lungs with bibasilar atelectasis andsmall bilateral pleural effusions. No pneumothorax. Heart and mediastinum: Stable contours. Additional findings: None. Signed: Gokul Encarnacion MDReport Verified Date/Time: 09/07/2021 03:00:20 BASIC METABOLIC [id number] 01:49:40 Test Item Value Reference Range Interpretation Comments SODIUM (BEAKER) 133 meq/L 136-145 L (test code = 381) POTASSIUM (BEAKER) 3.9 meq/L 3.5-5.1 (test code = 379) CHLORIDE (BEAKER) 102 meq/L 98-107 (test code = 382) CO2 (BEAKER) (test 20 meq/L 22-29 L code = 355) BLOOD UREA NITROGEN 12 mg/dL 7-21 (BEAKER) (test code = 354) CREATININE (BEAKER) 0.59 mg/dL 0.57-1.25 (test code = 358) GLUCOSE RANDOM 138 mg/dL 70-105 H (BEAKER) (test code = 652) CALCIUM (BEAKER) 7.4 mg/dL 8.4-10.2 L (test code = 697) EGFR (BEAKER) (test 175 mL/min/1.73 ESTIM ATED GFR IS code = 1092) sq m NOT ACCURATE CREATININE CLEARANCE IN PREDICTING GLOMERULAR FILTRATION RATE . ESTIMATED GFR I S NOT APPLICABLE FOR DIALYSIS PATIEN TS. Filler Block Inserter Remover ID - [id number] 01:38:31 Test Item Value Reference Range Interpretation Comments PHOSPHORUS (BEAKER) (test code = 3.1 mg/dL 2.3-4.7 604) Filler Block Inserter Remover ID - [id number] 01:38:30 Test Item Value Reference Range Interpretation Comments MAGNESIUM (BEAKER) (test code = 1.9 mg/dL 1.6-2.6 627) Filler Block Inserter Remover ID - BSPOCT-GLUCOSE [id number] 00:10:21 Test Item Value Reference Range Interpretation Comments POC-GLUCOSE METER 128 mg/dL 70-110 H : TESTED A T [facility] 6720 (BEAKER) (test code = [facility], 1538) [address]: Filler Block Inserter Remover/Techni dakota ID = [id number] for ABBIE PIERRE POCT-GLUCOSE [id number] 15:58:02 Test Item Value Reference Range Interpretation Comments POC-GLUCOSE METER 142 mg/dL 70-110 H : TESTED A T [facility] 6720 (BEAKER) (test code = [facility], 1538) [address]: Filler Block Inserter Remover/Techni dakota ID = [id number] for Laura Ch POCT-GLUCOSE [id number] 13:04:07 Test Item Value Reference Range Interpretation Comments POC-GLUCOSE METER 141 mg/dL 70-110 H : [facility] (BEAKER) (test code = [facility], 1538) [address]: Filler Block Inserter Remover/Techni dakota ID = [id number] for Laura Ch TSH/FREE T4 IF [id number] 11:33:39 Test Item Value Reference Range Interpretation Comments THYROID STIMULATING HORMONE 4.429 uIU/mL 0.350-4.940 (BEAKER) (test code = 772) Filler Block Inserter Remover ID - PIAYASARS-COV2/RT-PCR ([facility])2021-09-06 10:50:02 Test Item Value Reference Range Interpretation Comments SARS-COV2/RT-PCR (test Negative Not Detected, Negative, code = 6931717) See external report for linked test SARS-COV-2 PERFORMING LAB [facility] (test code = 5748798) Negative result for this test determines that SARS-CoV-2 RNA was not present in the specimen above the Limit of Detection (LOD). However, Negative results do not preclude SARS-CoV-2 infection and should not be used as the sole basis for treatment or patient management decisions. Negative results mustbe combined with clinical observations, patient history, and epidemiological information. A false negative result may occur if a specimen is improperly collected, transported or handled. A false negative result should be considered if patient's recent exposures or clinical presentation indicate that COVID-19 (SARS-CoV-2) is likely and diagnostic tests for other causes of illness are negative. Re-testing should be considered in cases of suspected false negatives.The limit of detection for this assay is 800 copies/mL.This SARS CoV-2 test is a real-time RT-PCR test intended for the qualitative detection of nucleic acid from SARS-CoV-2 in a nasopharyngeal swab specimen collected from individuals suspected of COVID-19 by their healthcare provider.This test has not been Food and Drug Administration (FDA) cleared or approved. This is a modified version of an approved Emergency Use Authorization (EUA) and is in the process of review by the FDA. Once authorized by the FDA, the issued EUA will be effective until the declaration that circumstances exist justifying the authorization of the emergency use of in vitro diagnostic tests for detection and/or diagnosis of COVID-19 is terminated under Section 564(b)(2) of the Act or the EUA is revoked under Section 564(g) of the Act.Fact Sheet for Healthcare Providers:https://www.ClearCare.CloudDock/sites/default/files/product/documents/Fact_Shee i_YY_Unqhovynm_Kqka_FPEE-JyW-2.pdfFact Sheet for Healthcare Patients:https://www.[employer]/sites/default/files/product/ documents/Rxgz_Xnmlk_Lsuhuvvn_Rxlo_RVQY-UtX-0.pdfPerforming Laboratory:[facility], [place] [address]VIPZDHR D, 25-HYDROXY 2021-09-06 07:57:12 Test Item Value Reference Range Interpretation Comments VITAMIN D 25-OH (BEAKER) (test 15.4 ng/mL 6.6-49.9 code = 2764) Effective 02/27/2017: Reference Range ChangeNew: 6.6-49.9 ng/mL Previous: 13.0-47.8 ng/mLRecommended Vitamin D Target Range: 30.0-40.0 ng/mLOperator ID - BSPOCT-GLUCOSE [id number] 07:40:30 Test Item Value Reference Range Interpretation Comments POC-GLUCOSE METER 157 mg/dL 70-110 H : TESTED A T [facility] 6720 ([place]) (test code = [place] [facility], 1538) [address]: Filler Block Inserter Remover/Techni dakota ID = [id number] for Laura Ch COMPLEMENT COMPONENT [id number] 07:37:31 Test Item Value Reference Range Interpretation Comments C3 COMPLEMENT (BEAKER) (test code = 25 mg/dL 82-193 L 393) Filler Block Inserter Remover ID - BSCOMPLEMENT COMPONENT [id number] 07:37:30 Test Item Value Reference Range Interpretation Comments C4 COMPLEMENT (BEAKER) (test code = 4 mg/dL 15-57 L 394) Filler Block Inserter Remover ID - BSPROTEIN, RANDOM [id number] 07:28:02 Test Item Value Reference Range Interpretation Comments PROTEIN, URINE (BEAKER) (test code 411 mg/dL 0-14 H = 1569) Filler Block Inserter Remover ID - BS(CELLAVISION MANUAL DIFF)2021-09-06 07:15:58 Test Item Value Reference Range Interpretation Comments NEUTROPHILS - REL 93 % (CELLAVISION)(BEAKER) (test code = 2816) LYMPHOCYTES - REL 2 % (CELLAVISION)(BEAKER) (test code = 2817) MONOCYTES - REL 3 % (CELLAVISION)(BEAKER) (test code = 2818) METAMYELOCYTES - REL 1 % 0-0 H (CELLAVISION)(BEAKER) (test code = 2821) BANDS - REL (CELLAVISION)(BEAKER) 1 % 0-10 (test code = 2826) NEUTROPHILS - ABS 8.84 K/ul 1.78-5.38 H (CELLAVISION)(BEAKER) (test code = 2830) LYMPHOCYTES - ABS 0.19 K/ul 1.32-3.57 L (CELLAVISION)(BEAKER) (test code = 2831) MONOCYTES - ABS 0.29 K/uL 0.30-0.82 L (CELLAVISION)(BEAKER) (test code = 2832) METAMYELOCYTES - ABS 0.10 K/uL 0.00-0.00 H (CELLAVISION)(BEAKER) (test code = 2836) BANDS - ABS (CELLAVISION)(BEAKER) 0.10 K/uL 0.00-0.80 (test code = 2840) TOTAL COUNTED (BEAKER) (test code 100 = 1351) WBC MORPHOLOGY (BEAKER) (test Normal code = 487) GIANT PLATELETS (BEAKER) (test Present code = 313) POLYCHROMATOPHILLIC RBCS(BEAKER) 2+ moderate (test code = 478) ANISOCYTOSIS (BEAKER) (test code 3+ many = 961) MICROCYTES (BEAKER) (test code = 3+ many 965) POIKILOCYTES (BEAKER) (test code 1+ few = 966) SPHEROCYTES (BEAKER) (test code = 1+ few 768) ELLIPTOCYTES (BEAKER) (test code 1+ few = 962) ARTIFACT (CELLAVISION)(BEAKER) Present (test code = 3432) PLATELET CONCENTRATION Decreased (CELLAVISION)(BEAKER) (test code = 3438) Filler Block Inserter Remover ID - [id number] ID - joanna Fuentes comments: Slide comments:CBC W/PLT COUNT & AUTO [id number] 07:15:57 Test Item Value Reference Range Interpretation Comments WHITE BLOOD CELL COUNT (BEAKER) 9.5 K/ L 3.5-10.5 (test code = 775) RED BLOOD CELL COUNT (BEAKER) 3.96 M/ L 4.63-6.08 L (test code = 761) HEMOGLOBIN (BEAKER) (test code = 9.3 GM/DL 13.7-17.5 L 410) HEMATOCRIT (BEAKER) (test code = 29.0 % 40.1-51.0 L 411) MEAN CORPUSCULAR VOLUME (BEAKER) 73.2 fL 79.0-92.2 L (test code = 753) MEAN CORPUSCULAR HEMOGLOBIN 23.5 pg 25.7-32.2 L (BEAKER) (test code = 751) MEAN CORPUSCULAR HEMOGLOBIN CONC 32.1 GM/DL 32.3-36.5 L (BEAKER) (test code = 752) RED CELL DISTRIBUTION WIDTH 19.9 % 11.6-14.4 H (BEAKER) (test code = 412) PLATELET COUNT (BEAKER) (test 127 K/CU MM 150-450 L code = 756) MEAN PLATELET VOLUME (BEAKER) 11.1 fL 9.4-12.4 (test code = 754) NUCLEATED RED BLOOD CELLS 0 /100 WBC 0-0 (BEAKER) (test code = 413) CREATININE, RANDOM [id number] 06:26:45 Test Item Value Reference Range Interpretation Comments CREATININE URINE (BEAKER) (test 200.4 mg/dL code = 375) Reference Range: No NormalsOperator ID - BSURINALYSIS W/ [id number] 06:06:22 Test Item Value Reference Range Interpretation Comments COLOR (BEAKER) (test code = 470) Brown CLARITY (BEAKER) (test code = 469) Cloudy SPECIFIC GRAVITY UA (BEAKER) (test 1.042 1.001-1.035 H code = 468) PH UA (BEAKER) (test code = 467) 6.0 5.0-8.0 PROTEIN UA (BEAKER) (test code = 600 mg/dL Negative A 464) GLUCOSE UA (BEAKER) (test code = 150 mg/dL Negative A 365) KETONES UA (BEAKER) (test code = Negative Negative 371) BILIRUBIN UA (BEAKER) (test code = Positive Negative A 462) BLOOD UA (BEAKER) (test code = 461) Large Negative A NITRITE UA (BEAKER) (test code = Negative Negative 465) LEUKOCYTE ESTERASE UA (BEAKER) Small Negative A (test code = 466) UROBILINOGEN UA (BEAKER) (test code 4.0 mg/dL 0.2-1.0 H = 463) RBC UA (BEAKER) (test code = 519) 495 /HPF WBC UA (BEAKER) (test code = 520) 46 /HPF BACTERIA (BEAKER) (test code = 517) None Seen MUCUS (BEAKER) (test code = 1574) Many SQUAMOUS EPITHELIAL (BEAKER) (test 2 /HPF code = 516) GRANULAR CASTS (BEAKER) (test code 518 /LPF = 515) CRYSTALS, URINE (BEAKER) (test code None Seen = 1521) AMORPHOUS CRYSTALS (BEAKER) (test Moderate code = 1584) SOURCE(BEAKER) (test code = 8775) Filler Block Inserter Remover ID - [auto]Filler Block Inserter Remover ID - techOperator ID - techCOMPREHENSIVE METABOLIC [id number] 02:54:37 Test Item Value Reference Range Interpretation Comments TOTAL PROTEIN 5.2 gm/dL 6.0-8.3 L (BEAKER) (test code = 770) ALBUMIN (BEAKER) 2.0 g/dL 3.5-5.0 L (test code = 1145) ALKALINE PHOSPHATASE 86 U/L 40-150 (BEAKER) (test code = 346) BILIRUBIN TOTAL 2.3 mg/dL 0.2-1.2 H (BEAKER) (test code = 377) SODIUM (BEAKER) (test 134 meq/L 136-145 L code = 381) POTASSIUM (BEAKER) 3.8 meq/L 3.5-5.1 (test code = 379) CHLORIDE (BEAKER) 103 meq/L 98-107 (test code = 382) CO2 (BEAKER) (test 24 meq/L 22-29 code = 355) BLOOD UREA NITROGEN 8 mg/dL 7-21 (BEAKER) (test code = 354) CREATININE (BEAKER) 0.63 mg/dL 0.57-1.25 (test code = 358) GLUCOSE RANDOM 181 mg/dL 70-105 H (BEAKER) (test code = 652) CALCIUM (BEAKER) 6.6 mg/dL 8.4-10.2 L (test code = 697) AST (SGOT) (BEAKER) 66 U/L 5-34 H (test code = 353) ALT (SGPT) (BEAKER) 41 U/L 6-55 (test code = 347) EGFR (BEAKER) (test 162 ESTIMATE D GFR IS code = 1092) mL/min/1.73 sq NOT ACCURA TE m CREATININE CLEARANCE IN PREDICTING GLOMERULAR FILTRATION RATE . ESTIMATED GFR I S NOT APPLICABLE FOR DIALYSIS PATIEN TS. Filler Block Inserter Remover ID - BSLACTIC ACID, [id number] 02:42:48 Test Item Value Reference Range Interpretation Comments LACTATE BLOOD VENOUS (2) (BEAKER) 1.38 mmol/L 0.50-2.20 (test code = 2872) Filler Block Inserter Remover ID - [id number] 02:36:26 Test Item Value Reference Range Interpretation Comments MAGNESIUM (BEAKER) (test code = 1.6 mg/dL 1.6-2.6 627) Filler Block Inserter Remover ID - [id number] 02:36:26 Test Item Value Reference Range Interpretation Comments PHOSPHORUS (BEAKER) (test code = 2.4 mg/dL 2.3-4.7 604) Filler Block Inserter Remover ID - BSRAD, CHEST, 1 VIEW, NON [id number] 02:26:00Reason for exam:->sobCH[facility] : 2000 Sex: MFINAL REPORT RAD, CHEST, 1 VIEW, NON DEPT INDICATION: sob COMPARISON: Prior day's exam FINDINGS: Portable frontal view of the chest. IMPRESSION: Support Lines: Stable.Lungs and pleura: Worsening consolidative airspace opacity in the right lung base may represent layering pleural effusion and atelectasis however infection should be excluded clinically. No left pleural effusion. No pneumothorax.Heart and mediastinum: Stable contours. Additional findings: None. Signed: Carlyn Ndiaye Verified Date/Time: 09/06/2021 02:26:55 -GLUCOSE [id number] 01:16:19 Test Item Value Reference Range Interpretation Comments POC-GLUCOSE METER 164 mg/dL 70-110 H : TESTED A T [facility] 6720 (BEAKER) (test code = [place] [facility], 1538) [address]: Filler Block Inserter Remover/Techni dakota ID = [id number] for WENDY PHILLIPS BASIC METABOLIC [id number] 19:41:58 Test Item Value Reference Range Interpretation Comments SODIUM (BEAKER) 135 meq/L 136-145 L (test code = 381) POTASSIUM (BEAKER) 3.8 meq/L 3.5-5.1 (test code = 379) CHLORIDE (BEAKER) 105 meq/L 98-107 (test code = 382) CO2 (BEAKER) (test 25 meq/L 22-29 code = 355) BLOOD UREA NITROGEN 7 mg/dL 7-21 (BEAKER) (test code = 354) CREATININE (BEAKER) 0.54 mg/dL 0.57-1.25 L (test code = 358) GLUCOSE RANDOM 202 mg/dL 70-105 H (BEAKER) (test code = 652) CALCIUM (BEAKER) 5.8 mg/dL 8.4-10.2 LL (test code = 697) EGFR (BEAKER) (test 194 mL/min/1.73 ESTIM ATED GFR IS code = 1092) sq m NOT ACCURATE CREATININE CLEARANCE IN PREDICTING GLOMERULAR FILTRATION RATE . ESTIMATED GFR I S NOT APPLICABLE FOR DIALYSIS PATIEN TS. Filler Block Inserter Remover ID - [id number] 19:38:29 Test Item Value Reference Range Interpretation Comments MAGNESIUM (BEAKER) (test code = 1.7 mg/dL 1.6-2.6 627) Filler Block Inserter Remover ID - [id number] 19:38:29 Test Item Value Reference Range Interpretation Comments PHOSPHORUS (BEAKER) (test code = 2.0 mg/dL 2.3-4.7 L 604) Filler Block Inserter Remover ID - BSPOCT-GLUCOSE [id number] 19:12:09 Test Item Value Reference Range Interpretation Comments POC-GLUCOSE METER 184 mg/dL 70-110 H : [facility] (BEAKER) (test code = RAYRAVINDRA CHARLES [place], 1538) [address]: Filler Block Inserter Remover/Techni dakota ID = [id number] for CHANTE GIL [id number] 17:52:47 Test Item Value Reference Range Interpretation Comments FERRITIN (BEAKER) (test code = 4212.17 ng/mL 5.00-275.00 H 361) Filler Block Inserter Remover ID - BSOperator ID - BSCT, [id number] 12:57:00Unlisted Reason for Exam - Click Yes and Enter Reason Below->YesUnlisted Reason for Exam->pancreatitis folllow-upIs this for enterography?->NoWill this procedure require oral contrast?->No [facility] : 2000 Sex: MFINAL REPORT TECHNIQUE: CT of the abdomen and pelvis WITH intravenous contrast and WITHOUT oral contrast. Dose modulation, iterative reconstruction, and/or weight-based adjustment of the mA/kV was utilized to reduce the radiation dose to as low as reasonably achievable. INDICATION: Unlisted Reason for Exampancreatitis folllow-up. COMPARISON: MRI from 08/27/2021. FINDINGS: LOWER THORAX: Trace left and small right pleural effusions with mild bibasilar atelectasis. HEPATOBILIARY: The liver is hypodense with sparing around the gallbladder. The liver is mildly enlarged 17.3 cm in length at the midclavicular line. No focal hepatic lesions. There is hyperdense material in the gallbladder. No gallbladder distention. No biliary ductal dilatation.SPLEEN: 15.3 cm splenomegaly.Multiple calcified granulomas measure up to 0.4 cm. PANCREAS: No focal masses or ductal dilatation. The pancreas is prominent and diffusely mildly hypodense. There is marked fat stranding around the pancreas. ADRENALS: No adrenal nodules.KIDNEYS/URETERS: No hydronephrosis, stones, or masses. A left lower pole simple renal cyst measures 0.4 cm. No follow-up imaging is recommended.PELVIC ORGANS/BLADDER: Unremarkable. PERITONEUM/RETROPERITONEUM: There is a moderate volume of ascites, mainly down the paracolic gutters and in the pelvis. No free air.LYMPH NODES: No lymphadenopathy.VESSELS: The main portal vein is patent and measures 1.6 cm in diameter. GI TRACT: No distention or wall thickening. A feeding tube has its tip in the fourth portion of the duodenum. BONES AND SOFT TISSUES: There is narrowing of the left hip joint space with subchondral cystic change and remodeling of the femoral head. Schmorl's nodes of the thoracolumbar spine. IMPRESSION: 1.The findings are consistent with acute pancreatitis without pancreatic parenchymal necrosis. Fluid extends down both paracolic gutters and into thepelvis without a loculated, drainable fluid collection. Given the confluence of the peripancreatic fat stranding, peripancreatic necrosis is possible. 2.Hepatosplenomegaly with diffuse fatty infiltration of the liver. 3.The hyperdense material in the gallbladder could be sludge. 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 Signed: Drake Luxepceferino Verified Date/Time: 09/05/2021 12:57:43 ReadingLocation: [facility] Diagnostic Imaging Reading Room - [facility] F1 1129 POCT-GLUCOSE [id number] 12:23:38 Test Item Value Reference Range Interpretation Comments POC-GLUCOSE METER 181 mg/dL 70-110 H : TESTED A T [facility] 6720 (BEAKER) (test code = [facility], 1538) [id number]: Filler Block Inserter Remover/Techni dakota ID = [id number] for CHANTE GIL POCT-GLUCOSE [id number] 06:55:24 Test Item Value Reference Range Interpretation Comments POC-GLUCOSE METER 197 mg/dL 70-110 H : TESTED A T [facility] 6720 (BEAKER) (test code = [facility], 1538) 13244: Filler Block Inserter Remover/Techni dakota ID = [id number] for ON UOHA, ALLAN COMPREHENSIVE METABOLIC [id number] 06:16:59 Test Item Value Reference Range Interpretation Comments TOTAL PROTEIN 5.9 gm/dL 6.0-8.3 L (BEAKER) (test code = 770) ALBUMIN (BEAKER) 2.2 g/dL 3.5-5.0 L (test code = 1145) ALKALINE PHOSPHATASE 97 U/L 40-150 (BEAKER) (test code = 346) BILIRUBIN TOTAL 1.3 mg/dL 0.2-1.2 H (BEAKER) (test code = 377) SODIUM (BEAKER) (test 136 meq/L 136-145 code = 381) POTASSIUM (BEAKER) 3.5 meq/L 3.5-5.1 (test code = 379) CHLORIDE (BEAKER) 103 meq/L 98-107 (test code = 382) CO2 (BEAKER) (test 26 meq/L 22-29 code = 355) BLOOD UREA NITROGEN 8 mg/dL 7-21 (BEAKER) (test code = 354) CREATININE (BEAKER) 0.55 mg/dL 0.57-1.25 L (test code = 358) GLUCOSE RANDOM 214 mg/dL 70-105 H (BEAKER) (test code = 652) CALCIUM (BEAKER) 6.7 mg/dL 8.4-10.2 L (test code = 697) AST (SGOT) (BEAKER) 73 U/L 5-34 H (test code = 353) ALT (SGPT) (BEAKER) 46 U/L 6-55 (test code = 347) EGFR (BEAKER) (test 190 ESTIMATE D GFR IS code = 1092) mL/min/1.73 sq NOT ACCURA TE m CREATININE CLEARANCE IN PREDICTING GLOMERULAR FILTRATION RATE . ESTIMATED GFR I S NOT APPLICABLE FOR DIALYSIS PATIEN TS. Filler Block Inserter Remover ID - SHREE WCALCIUM, [id number] 05:57:49 Test Item Value Reference Range Interpretation Comments CALCIUM IONIZED (BEAKER) (test 0.92 mmol/L 1.12-1.27 L code = 698) PH, BLOOD (BEAKER) (test code = 7.42 1810) CBC (HEMOGRAM ONLY)2021-09-05 05:26:31 Test Item Value Reference Range Interpretation Comments WHITE BLOOD CELL COUNT (BEAKER) 10.4 K/ L 3.5-10.5 (test code = 775) RED BLOOD CELL COUNT (BEAKER) 4.16 M/ L 4.63-6.08 L (test code = 761) HEMOGLOBIN (BEAKER) (test code = 9.8 GM/DL 13.7-17.5 L 410) HEMATOCRIT (BEAKER) (test code = 29.6 % 40.1-51.0 L 411) MEAN CORPUSCULAR VOLUME (BEAKER) 71.2 fL 79.0-92.2 L (test code = 753) MEAN CORPUSCULAR HEMOGLOBIN 23.6 pg 25.7-32.2 L (BEAKER) (test code = 751) MEAN CORPUSCULAR HEMOGLOBIN CONC 33.1 GM/DL 32.3-36.5 (BEAKER) (test code = 752) RED CELL DISTRIBUTION WIDTH 18.9 % 11.6-14.4 H (BEAKER) (test code = 412) PLATELET COUNT (BEAKER) (test 121 K/CU MM 150-450 L code = 756) NUCLEATED RED BLOOD CELLS 0 /100 WBC 0-0 (BEAKER) (test code = 413) [id number] 01:18:24 Test Item Value Reference Range Interpretation Comments PHOSPHORUS (BEAKER) (test code = 1.2 mg/dL 2.3-4.7 LL 604) Filler Block Inserter Remover ID - BSBASIC METABOLIC [id number] 01:17:10 Test Item Value Reference Range Interpretation Comments SODIUM (BEAKER) 135 meq/L 136-145 L (test code = 381) POTASSIUM (BEAKER) 3.7 meq/L 3.5-5.1 (test code = 379) CHLORIDE (BEAKER) 102 meq/L 98-107 (test code = 382) CO2 (BEAKER) (test 26 meq/L 22-29 code = 355) BLOOD UREA NITROGEN 8 mg/dL 7-21 (BEAKER) (test code = 354) CREATININE (BEAKER) 0.56 mg/dL 0.57-1.25 L (test code = 358) GLUCOSE RANDOM 223 mg/dL 70-105 H (BEAKER) (test code = 652) CALCIUM (BEAKER) 7.2 mg/dL 8.4-10.2 L (test code = 697) EGFR (BEAKER) (test 186 mL/min/1.73 ESTIM ATED GFR IS code = 1092) sq m NOT ACCURATE CREATININE CLEARANCE IN PREDICTING GLOMERULAR FILTRATION RATE . ESTIMATED GFR I S NOT APPLICABLE FOR DIALYSIS PATIEN TS. Filler Block Inserter Remover ID - [id number] 01:10:55 Test Item Value Reference Range Interpretation Comments MAGNESIUM (BEAKER) (test code = 2.3 mg/dL 1.6-2.6 627) Filler Block Inserter Remover ID - BSPOCT-GLUCOSE [id number] 00:50:48 Test Item Value Reference Range Interpretation Comments POC-GLUCOSE METER 194 mg/dL 70-110 H : TESTED A T [facility] 6720 (BEAKER) (test code = [facility] [place], 1538) 65515: Filler Block Inserter Remover/Techni dakota ID = [id number] for ON UOHA, ALLAN CT, CHEST WITH IV CONTRAST- PE TEST [id number] 21:21:00Unlisted Reason for Exam - Click Yes and Enter Reason Below->No [facility] 2000 Sex: MFINAL REPORT Comparison: MR abdomen dated 08/27/2021 Indication: 21-ye ar-old male with acute chest pain, hypoxia, and shortness of breath clinically suspicious for acute pulmonary embolism. Technique: Postcontrast axial images of the chest were obtained from above thearch level to the lower chest at maximum enhancement of the pulmonary artery. This exam was performed according to the departmental dose optimization program which includes automated exposure control,adjustment of the mA and/or kV according to the patient size, and/or use of an iterative reconstruction technique. Findings: Vascular: The study is diagnostic to the level of the segmental pulmonary arteries. Examination limited by motion artifact . Pulmonary arteries: No evidence of acute or chronic pulmonary embolism. Specifically, the pulmonary arteries are widely patent, without evidence for filling defect or vascular cutoff. The pulmonary arteries are normal in size. Thoracic aorta: Normal insize. No acute aortic pathology. The arch vessel branching pattern is normal, and the origins of thearch branch vessels are all widely patent. Pulmonary veins: Normal configuration. Coronary arteries:Normal configuration with no significant atherosclerotic calcifications. Systemic veins: No identified thrombus. Chest: Lungs/pleura: Small bilateral right greater than left pleural effusions with adjacent consolidative airspace opacities likely representing passive atelectasis however superimposed infection should be excluded clinically. Discoid atelectasis in the right middle lobe. No pneumothorax or suspicious pulmonary nodules. Mediastinum/sadia: No pathologically enlarged lymph nodes. An enteric tube is seen coursing inferiorly, tip terminating below the inferior margin of film. The esophagus is normal in caliber. Thyroid gland is not well visualized on this examination. Heart: The cardiac chambers demonstrate normal atrioventricular and ventriculoarterial concordance, and systemic andpulmonary venous return. The cardiac chamber sizes are normal. Trace pericardial effusion. No thrombus identified within the cardiac chambers. Axillae/subcutaneous soft tissues: No pathologically enlarged axillary lymph nodes. No suspicious subcutaneous nodules or fluid collections. Visualized upper abdomen: Calcified granulomas in the spleen. Hepatic steatosis. Small volume intra-abdominal ascites that are evaluated on same day CT abdomen pelvis.. Bones: No aggressive osseous lesions or acute fractures. Multilevel degenerative changes in thoracic spine. Impression: No evidence for acute or chronic pulmonary embolism with limitations as above. Small bilateral right greater than left pleural effusions with adjacent consolidative airspace opacities likely representing passive atelectasis however superimposed infection should be excluded clinically. Hepatic steatosis. Signed: Ambrose Ndiaye Verified Date/Time: 09/04/2021 21:21:16 POCT-GLUCOSE [id number] 18:23:42 Test Item Value Reference Range Interpretation Comments POC-GLUCOSE METER 248 mg/dL 70-110 H : [facility] ([employer]) (test code = [facility], 153) 63322: Filler Block Inserter Remover/Techni dakota ID = [id number] for Bree Roman [id number] 14:56:22 Test Item Value Reference Range Interpretation Comments CALCIUM (BEAKER) (test code = 697) 5.8 mg/dL 8.4-10.2 LL Filler Block Inserter Remover ID - ADMINPOCT-GLUCOSE [id number] 13:17:18 Test Item Value Reference Range Interpretation Comments POC-GLUCOSE METER 217 mg/dL 70-110 H : TESTED A T [facility] 6720 ([employer]) (test code = [facility], 153) 81824: Filler Block Inserter Remover/Techni dakota ID = [id number] for Alanis cobosEstellaLiana CBC W/PLT COUNT & AUTO [id number] 07:22:59 Test Item Value Reference Range Interpretation Comments WHITE BLOOD CELL COUNT 10.9 K/ L 3.5-10.5 H (BEAKER) (test code = 775) RED BLOOD CELL COUNT 4.44 M/ L 4.63-6.08 L (BEAKER) (test code = 761) HEMOGLOBIN (BEAKER) 10.3 GM/DL 13.7-17.5 L (test code = 410) HEMATOCRIT (BEAKER) 32.6 % 40.1-51.0 L (test code = 411) MEAN CORPUSCULAR VOLUME 73.4 fL 79.0-92.2 L (BEAKER) (test code = 753) MEAN CORPUSCULAR 23.2 pg 25.7-32.2 L HEMOGLOBIN (BEAKER) (test code = 751) MEAN CORPUSCULAR 31.6 GM/DL 32.3-36.5 L HEMOGLOBIN CONC (BEAKER) (test code = 752) RED CELL DISTRIBUTION 18.1 % 11.6-14.4 H WIDTH (BEAKER) (test code = 412) PLATELET COUNT (BEAKER) 87 K/CU MM 150-450 L (test code = 756) MEAN PLATELET VOLUME Unable to report due (BEAKER) (test code = to abn ormal Platelet 754) population distribution. NUCLEATED RED BLOOD 0 /100 WBC 0-0 CELLS (BEAKER) (test code = 413) NEUTROPHILS RELATIVE 88 % PERCENT (BEAKER) (test code = 429) LYMPHOCYTES RELATIVE 6 % PERCENT (BEAKER) (test code = 430) MONOCYTES RELATIVE 4 % PERCENT (BEAKER) (test code = 431) EOSINOPHILS RELATIVE 0 % PERCENT (BEAKER) (test code = 432) BASOPHILS RELATIVE 0 % PERCENT (BEAKER) (test code = 437) NEUTROPHILS ABSOLUTE 9.60 K/ L 1.78-5.38 H COUNT (BEAKER) (test code = 670) LYMPHOCYTES ABSOLUTE 0.64 K/ L 1.32-3.57 L COUNT (BEAKER) (test code = 414) MONOCYTES ABSOLUTE 0.46 K/ L 0.30-0.82 COUNT (BEAKER) (test code = 415) EOSINOPHILS ABSOLUTE 0.00 K/ L 0.04-0.54 L COUNT (BEAKER) (test code = 416) BASOPHILS ABSOLUTE 0.01 K/ L 0.01-0.08 COUNT (BEAKER) (test code = 417) IMMATURE 2 % 0-1 H GRANULOCYTES-RELATIVE PERCENT (BEAKER) (test code = 2801) POCT-GLUCOSE [id number] 06:16:20 Test Item Value Reference Range Interpretation Comments POC-GLUCOSE METER 261 mg/dL 70-110 H : [facility] (BEAKER) (test code = [facility] [place], 1538) [address]: Filler Block Inserter Remover/Techni dakota ID = [id number] for KENDALL JOYA COMPREHENSIVE METABOLIC [id number] 05:49:22 Test Item Value Reference Range Interpretation Comments TOTAL PROTEIN 6.3 gm/dL 6.0-8.3 (BEAKER) (test code = 770) ALBUMIN (BEAKER) 2.2 g/dL 3.5-5.0 L (test code = 1145) ALKALINE PHOSPHATASE 110 U/L 40-150 (BEAKER) (test code = 346) BILIRUBIN TOTAL 1.3 mg/dL 0.2-1.2 H (BEAKER) (test code = 377) SODIUM (BEAKER) (test 135 meq/L 136-145 L code = 381) POTASSIUM (BEAKER) 3.4 meq/L 3.5-5.1 L (test code = 379) CHLORIDE (BEAKER) 102 meq/L 98-107 (test code = 382) CO2 (BEAKER) (test 25 meq/L 22-29 code = 355) BLOOD UREA NITROGEN 16 mg/dL 7-21 (BEAKER) (test code = 354) CREATININE (BEAKER) 0.66 mg/dL 0.57-1.25 (test code = 358) GLUCOSE RANDOM 282 mg/dL 70-105 H (BEAKER) (test code = 652) CALCIUM (BEAKER) 5.5 mg/dL 8.4-10.2 LL (test code = 697) AST (SGOT) (BEAKER) 105 U/L 5-34 H (test code = 353) ALT (SGPT) (BEAKER) 55 U/L 6-55 (test code = 347) EGFR (BEAKER) (test 154 ESTIMATE D GFR IS code = 1092) mL/min/1.73 sq NOT ACCURA TE m CREATININE CLEARANCE IN PREDICTING GLOMERULAR FILTRATION RATE . ESTIMATED GFR I S NOT APPLICABLE FOR DIALYSIS PATIEN TS. Filler Block Inserter Remover ID - [id number] 05:33:14 Test Item Value Reference Range Interpretation Comments MAGNESIUM (BEAKER) (test code = 1.8 mg/dL 1.6-2.6 627) Filler Block Inserter Remover ID - ADMINURINALYSIS W/ REFLEX URINE [id number] 01:34:44 Test Item Value Reference Range Interpretation Comments COLOR (BEAKER) (test code = 470) Maryann CLARITY (BEAKER) (test code = Hazy 469) SPECIFIC GRAVITY UA (BEAKER) 1.031 1.001-1.035 (test code = 468) PH UA (BEAKER) (test code = 467) 6.5 5.0-8.0 PROTEIN UA (BEAKER) (test code = 600 mg/dL Negative A 464) GLUCOSE UA (BEAKER) (test code = >1000 mg/dL Negative A 365) KETONES UA (BEAKER) (test code = Negative Negative 371) BILIRUBIN UA (BEAKER) (test code Positive Negative A = 462) BLOOD UA (BEAKER) (test code = Moderate Negative A 461) NITRITE UA (BEAKER) (test code = Negative Negative 465) LEUKOCYTE ESTERASE UA (BEAKER) Negative Negative (test code = 466) UROBILINOGEN UA (BEAKER) (test 2.0 mg/dL 0.2-1.0 H code = 463) RBC UA (BEAKER) (test code = 519) 10 /HPF WBC UA (BEAKER) (test code = 520) 14 /HPF BACTERIA (BEAKER) (test code = None Seen 517) MUCUS (BEAKER) (test code = 1574) Rare SQUAMOUS EPITHELIAL (BEAKER) 1 /HPF (test code = 516) HYALINE CASTS (BEAKER) (test code 8 /LPF = 514) RBC CASTS (BEAKER) (test code = 1 /LPF 1577) GRANULAR CASTS (BEAKER) (test 1 /LPF code = 515) MIXED CELL CASTS (BEAKER) (test 1 /LPF code = 1581) CRYSTALS, URINE (BEAKER) (test None Seen code = 1521) YEAST (BEAKER) (test code = 1585) Rare SOURCE(BEAKER) (test code = 2795) Filler Block Inserter Remover ID - [auto]Filler Block Inserter Remover ID - techPOCT-GLUCOSE [id number] 00:34:17 Test Item Value Reference Range Interpretation Comments POC-GLUCOSE METER 261 mg/dL 70-110 H : TESTED A T [facility] 6720 (BEAKER) (test code = [place], 1538) [address]: Filler Block Inserter Remover/Techni dakota ID = [id number] for KENDALL JOYA [id number] 18:57:34 Test Item Value Reference Range Interpretation Comments MAGNESIUM (BEAKER) (test code = 1.3 mg/dL 1.6-2.6 L 627) Filler Block Inserter Remover ID - ADMINPOCT-GLUCOSE [id number] 18:04:02 Test Item Value Reference Range Interpretation Comments POC-GLUCOSE METER 307 mg/dL 70-110 H : TESTED A T [facility] 6720 (BEAKER) (test code = [place], 1538) [address]: Filler Block Inserter Remover/Techni dakota ID = [id number] for Liana Flores RAD, ABDOMEN/KUB, 1 VIEW [id number] 18:01:00Reason for exam:->Enteric tube placement verification [facility] : 2000 Sex: MFINAL REPORT RAD, ABDOMEN/KUB, 1 VIEW AP CLINICAL INDICATION: Enteric tube placement verification COMPARISON: None TECHNIQUE: Single, frontal radiograph of the abdomen. FINDINGS: The bowel gas pattern is nonspecific, but nonobstructive. There are prominent loops ofsmall bowel within the mid abdomen. Colon is stool-filled. Evaluation for free air is limited by portable supine technique. Within these limitations, no free air is identified. Signed: Nidia Correa MDReport Verified Date/Time: 09/03/2021 18:01:34 REHENSIVE METABOLIC [id number] 17:50:55 Test Item Value Reference Range Interpretation Comments TOTAL PROTEIN 6.9 gm/dL 6.0-8.3 (BEAKER) (test code = 770) ALBUMIN (BEAKER) 2.3 g/dL 3.5-5.0 L (test code = 1145) ALKALINE PHOSPHATASE 122 U/L 40-150 (BEAKER) (test code = 346) BILIRUBIN TOTAL 1.3 mg/dL 0.2-1.2 H (BEAKER) (test code = 377) SODIUM (BEAKER) (test 134 meq/L 136-145 L code = 381) POTASSIUM (BEAKER) 3.9 meq/L 3.5-5.1 (test code = 379) CHLORIDE (BEAKER) 102 meq/L 98-107 (test code = 382) CO2 (BEAKER) (test 25 meq/L 22-29 code = 355) BLOOD UREA NITROGEN 15 mg/dL 7-21 (BEAKER) (test code = 354) CREATININE (BEAKER) 0.69 mg/dL 0.57-1.25 (test code = 358) GLUCOSE RANDOM 337 mg/dL 70-105 H (BEAKER) (test code = 652) CALCIUM (BEAKER) 5.5 mg/dL 8.4-10.2 LL (test code = 697) AST (SGOT) (BEAKER) 154 U/L 5-34 H (test code = 353) ALT (SGPT) (BEAKER) 67 U/L 6-55 H (test code = 347) EGFR (BEAKER) (test 146 ESTIMATE D GFR IS code = 1092) mL/min/1.73 sq NOT ACCURA TE m CREATININE CLEARANCE IN PREDICTING GLOMERULAR FILTRATION RATE . ESTIMATED GFR I S NOT APPLICABLE FOR DIALYSIS PATIEN TS. Filler Block Inserter Remover ID - [id number] ID - [id number] ID - ADMINCBC W/PLT COUNT & AUTO [id number] 17:43:10 Test Item Value Reference Range Interpretation Comments WHITE BLOOD CELL COUNT 11.3 K/ L 3.5-10.5 H (BEAKER) (test code = 775) RED BLOOD CELL COUNT 4.79 M/ L 4.63-6.08 (BEAKER) (test code = 761) HEMOGLOBIN (BEAKER) 11.0 GM/DL 13.7-17.5 L (test code = 410) HEMATOCRIT (BEAKER) 34.5 % 40.1-51.0 L (test code = 411) MEAN CORPUSCULAR 72.0 fL 79.0-92.2 L VOLUME (BEAKER) (test code = 753) MEAN CORPUSCULAR 23.0 pg 25.7-32.2 L HEMOGLOBIN (BEAKER) (test code = 751) MEAN CORPUSCULAR 31.9 GM/DL 32.3-36.5 L HEMOGLOBIN CONC (BEAKER) (test code = 752) RED CELL DISTRIBUTION 17.8 % 11.6-14.4 H WIDTH (BEAKER) (test code = 412) PLATELET COUNT 100 K/CU MM 150-450 L (BEAKER) (test code = 756) MEAN PLATELET VOLUME Unable to report due (BEAKER) (test code = to abn ormal Platelet 754) population distribution. NUCLEATED RED BLOOD 0 /100 WBC 0-0 CELLS (BEAKER) (test code = 413) NEUTROPHILS RELATIVE 93 % PERCENT (BEAKER) (test code = 429) LYMPHOCYTES RELATIVE 3 % PERCENT (BEAKER) (test code = 430) MONOCYTES RELATIVE 2 % PERCENT (BEAKER) (test code = 431) EOSINOPHILS RELATIVE 0 % PERCENT (BEAKER) (test code = 432) BASOPHILS RELATIVE 0 % PERCENT (BEAKER) (test code = 437) NEUTROPHILS ABSOLUTE 10.56 K/ L 1.78-5.38 H COUNT (BEAKER) (test code = 670) LYMPHOCYTES ABSOLUTE 0.35 K/ L 1.32-3.57 L COUNT (BEAKER) (test code = 414) MONOCYTES ABSOLUTE 0.25 K/ L 0.30-0.82 L COUNT (BEAKER) (test code = 415) EOSINOPHILS ABSOLUTE 0.00 K/ L 0.04-0.54 L COUNT (BEAKER) (test code = 416) BASOPHILS ABSOLUTE 0.01 K/ L 0.01-0.08 COUNT (BEAKER) (test code = 417) IMMATURE 1 % 0-1 GRANULOCYTES-RELATIVE PERCENT (BEAKER) (test code = 2801) RAD, ABDOMEN/KUB, 1 VIEW [id number] 17:14:00Reason for exam:->confirm NGT [facility] : 2000 Sex: MFINAL REPORT RAD, ABDOMEN/KUB, 1 VIEW AP CLINICAL INDICATION: confirm NGT placement COMPARISON: None TECHNIQUE: Single, frontal radiograph of the abdomen. FINDINGS:Feeding tube tip overlies the distal duodenum. The bowel gas pattern is nonspecific, but nonobstructive.Evaluation for free air is limited by portable supine technique. Within these limitations, no free air is identified. Signed: Nidia Correa MDReport Verified Date/Time: 09/03/2021 17:14:35 , CHEST, 1 VIEW, NON [id number] 16:50:00Reason for exam:->ngt placementShould this be performed at the bedside?->Yes [facility] : 2000 Sex: MFINAL REPORT INDICATION: ngt placement COMPARISON: None TECHNIQUE: Sin gle frontal view of the chest. FINDINGS: Lungs and pleura: Trace right effusion and basilar atelectasisHeart and mediastinum: Normal heart size. Unremarkable mediastinal contours.Osseous structures: Noacute abnormality.Other: Feeding tube descends below the diaphragm. Signed: Nidia Correa MDReportVerified Date/Time: 09/03/2021 16:50:54 Electronically signed by: NIDIA CORREA MD on09/03/2021 04:50 [id number] 10:58:42 Test Item Value Reference Range Interpretation Comments PHOSPHORUS (BEAKER) 1.6 mg/dL 2.3-4.7 L Specimen slightly (test code = 604) hemolyzed Filler Block Inserter Remover ID - BISI GCOMPREHENSIVE METABOLIC [id number] 06:03:24 Test Item Value Reference Range Interpretation Comments TOTAL PROTEIN 7.2 gm/dL 6.0-8.3 Specimen sligh tly (BEAKER) (test code = hemoly zed 770) ALBUMIN (BEAKER) 2.1 g/dL 3.5-5.0 L Specimen sl ightly (test code = 1145) hemolyzed ALKALINE PHOSPHATASE 114 U/L 40-150 (BEAKER) (test code = 346) BILIRUBIN TOTAL 1.3 mg/dL 0.2-1.2 H Specimen sli ghtly (BEAKER) (test code = hemoly zed 377) SODIUM (BEAKER) (test 133 meq/L 136-145 L code = 381) POTASSIUM (BEAKER) 4.0 meq/L 3.5-5.1 Specimen slightly (test code = 379) hemolyzed CHLORIDE (BEAKER) 102 meq/L 98-107 (test code = 382) CO2 (BEAKER) (test 23 meq/L 22-29 code = 355) BLOOD UREA NITROGEN 15 mg/dL 7-21 (BEAKER) (test code = 354) CREATININE (BEAKER) 0.70 mg/dL 0.57-1.25 Specimen slightly (test code = 358) hemolyzed GLUCOSE RANDOM 355 mg/dL 70-105 H (BEAKER) (test code = 652) CALCIUM (BEAKER) 5.6 mg/dL 8.4-10.2 LL (test code = 697) AST (SGOT) (BEAKER) 218 U/L 5-34 H Specimen slightly (test code = 353) hemolyzed ALT (SGPT) (AKER) 80 U/L 6-55 H Specimen slightly (test code = 347) hemolyzed EGFR ([facility]) (test 144 ESTIMATE D GFR IS code = 1092) mL/min/1.73 sq NOT ACCURA TE m CREATININE CLEARANCE IN PREDICTING GLOMERULAR FILTRATION RATE . ESTIMATED GFR I S NOT APPLICABLE FOR DIALYSIS PATIEN TS. Filler Block Inserter Remover ID - BISI GPOCT-GLUCOSE [id number] 22:25:14 Test Item Value Reference Range Interpretation Comments POC-GLUCOSE METER 312 mg/dL 70-110 H : TESTED A T [facility] 6720 ([facility]) (test code = [place] [facility], 1538) [address]: Filler Block Inserter Remover/Techni dakota ID = [id number] for FABRIZIO JOYCE POCT-GLUCOSE [id number] 19:00:17 Test Item Value Reference Range Interpretation Comments POC-GLUCOSE METER 339 mg/dL 70-110 H : Notified RN/MD: ([facility]) (test code = TESTED AT [facility] 6720 1538) [place] [facility], [address]: Filler Block Inserter Remover/Techni dakota ID = [id number] for Rudy mccord (contract), Dei yana PROTEIN, RANDOM [id number] 08:28:13 Test Item Value Reference Range Interpretation Comments PROTEIN, URINE (BEAKER) (test code 243 mg/dL 0-14 H = 1569) Filler Block Inserter Remover ID - BSOperator ID - BSCREATININE, RANDOM [id number] 07:21:31 Test Item Value Reference Range Interpretation Comments CREATININE URINE ([facility]) (test 122.9 mg/dL code = 375) Reference Range: No NormalsOperator ID - BSRAD, CHEST, 1 VIEW, NON DEPT 2021-09-02 01:55:00Reason for exam:->chest painShould this be performed at the bedside?->Yes [facility] : 2000 Sex: MFINAL REPORT History: chest pain. Comparison: None. Findings: A singl e view of the chest is submitted. The cardiomediastinal contours are unremarkable. There is no focal consolidation, pneumothorax, large pleural effusion or evidence of overt pulmonary edema. There is no acute bony abnormality. Impression: No acute abnormality. Signed: Miles Alicia Verified Date/Time: 09/02/2021 01:55:59 POCT-GLUCOSE [id number] 23:28:42 Test Item Value Reference Range Interpretation Comments POC-GLUCOSE METER 277 mg/dL 70-110 H : TESTED A T [facility] ([employer]) (test code = [facility], 1538) [address]: Filler Block Inserter Remover/Techni dakota ID = [id number] for PAULINA RODRIGUES POCT-GLUCOSE [id number] 18:19:51 Test Item Value Reference Range Interpretation Comments POC-GLUCOSE METER 263 mg/dL 70-110 H : TESTED A T [facility] ([employer]) (test code = [facility], 1538) [address]: Filler Block Inserter Remover/Techni dakota ID = [id number] for Rubén clyde Laura HIGH SENSITIVITY TROPONIN [id number] 17:04:34 Test Item Value Reference Range Interpretation Comments HIGH SENSITIVITY < pg/ml See_Comment [Automated message] TROPONIN I (test code = The system which 2243559) generated this result transmitted ref erence range: <=35. Th e reference range was not used to interpr et this result as normal/abnormal . Filler Block Inserter Remover ID - BSThe INVESTOR RELATIONS [facility] High Sensitivity Troponin-I results should be used in conjunctionwith other diagnostic information such as ECG, clinical observations and information, and patient symptoms to aid in the diagnosis of MD.(CELLAVISION MANUAL DIFF)2021-09-01 10:37:19 Test Item Value Reference Range Interpretation Comments NEUTROPHILS - REL 67 % (CELLAVISION)(BEAKER) (test code = 2816) LYMPHOCYTES - REL 10 % (CELLAVISION)(BEAKER) (test code = 2817) MONOCYTES - REL 7 % (CELLAVISION)(BEAKER) (test code = 2818) BASOPHILS - REL 1 % (CELLAVISION)(BEAKER) (test code = 2820) METAMYELOCYTES - REL 7 % 0-0 H (CELLAVISION)(BEAKER) (test code = 2821) MYELOCYTES - REL 2 % 0-0 H (CELLAVISION)(BEAKER) (test code = 2822) BANDS - REL (CELLAVISION)(BEAKER) 5 % 0-10 (test code = 2826) NEUTROPHILS - ABS 1.41 K/ul 1.78-5.38 L (CELLAVISION)(BEAKER) (test code = 2830) LYMPHOCYTES - ABS 0.21 K/ul 1.32-3.57 L (CELLAVISION)(BEAKER) (test code = 2831) MONOCYTES - ABS 0.15 K/uL 0.30-0.82 L (CELLAVISION)(BEAKER) (test code = 2832) BASOPHILS - ABS 0.02 K/uL 0.01-0.08 (CELLAVISION)(BEAKER) (test code = 2835) METAMYELOCYTES - ABS 0.15 K/uL 0.00-0.00 H (CELLAVISION)(BEAKER) (test code = 2836) MYELOCYTES-ABS 0.04 K/uL 0.00-0.00 H (CELLAVISION)(BEAKER) (test code = 2837) BANDS - ABS (CELLAVISION)(BEAKER) 0.11 K/uL 0.00-0.80 (test code = 2840) TOTAL COUNTED (BEAKER) (test code 100 = 1351) WBC MORPHOLOGY (BEAKER) (test Normal code = 487) CLUMPED PLATELETS (BEAKER) (test Present code = 436) POLYCHROMATOPHILLIC RBCS(BEAKER) 3+ many (test code = 478) ANISOCYTOSIS (BEAKER) (test code 1+ few = 961) POIKILOCYTES (BEAKER) (test code 2+ moderate = 966) ELLIPTOCYTES (BEAKER) (test code 1+ few = 962) OVALOCYTES (BEAKER) (test code = 1+ few 477) ARTIFACT (CELLAVISION)(BEAKER) Present (test code = 3432) PLATELET CONCENTRATION Decreased (CELLAVISION)(BEAKER) (test code = 3438) Filler Block Inserter Remover ID - [id number] ID - joanna Fuentes comments: Slide comments:CBC W/PLT COUNT & AUTO [id number] 10:37:18 Test Item Value Reference Range Interpretation Comments WHITE BLOOD CELL COUNT 2.1 K/ L 3.5-10.5 L (BEAKER) (test code = 775) RED BLOOD CELL COUNT 4.52 M/ L 4.63-6.08 L (BEAKER) (test code = 761) HEMOGLOBIN (BEAKER) 10.5 GM/DL 13.7-17.5 L (test code = 410) HEMATOCRIT (BEAKER) 33.5 % 40.1-51.0 L (test code = 411) MEAN CORPUSCULAR VOLUME 74.1 fL 79.0-92.2 L (BEAKER) (test code = 753) MEAN CORPUSCULAR 23.2 pg 25.7-32.2 L HEMOGLOBIN (BEAKER) (test code = 751) MEAN CORPUSCULAR 31.3 GM/DL 32.3-36.5 L HEMOGLOBIN CONC (BEAKER) (test code = 752) RED CELL DISTRIBUTION 15.9 % 11.6-14.4 H WIDTH (BEAKER) (test code = 412) PLATELET COUNT (BEAKER) 36 K/CU MM 150-450 L (test code = 756) MEAN PLATELET VOLUME Unable to report due (BEAKER) (test code = to abn ormal Platelet 754) population distribution. NUCLEATED RED BLOOD 0 /100 WBC 0-0 CELLS (BEAKER) (test code = 413) COMPREHENSIVE METABOLIC [id number] 07:28:31 Test Item Value Reference Range Interpretation Comments TOTAL PROTEIN 5.8 gm/dL 6.0-8.3 L (BEAKER) (test code = 770) ALBUMIN (BEAKER) 2.5 g/dL 3.5-5.0 L (test code = 1145) ALKALINE PHOSPHATASE 174 U/L 40-150 H (BEAKER) (test code = 346) BILIRUBIN TOTAL 0.7 mg/dL 0.2-1.2 (BEAKER) (test code = 377) SODIUM (BEAKER) (test 134 meq/L 136-145 L code = 381) POTASSIUM (BEAKER) 4.1 meq/L 3.5-5.1 (test code = 379) CHLORIDE (BEAKER) 101 meq/L 98-107 (test code = 382) CO2 (BEAKER) (test 26 meq/L 22-29 code = 355) BLOOD UREA NITROGEN 11 mg/dL 7-21 (BEAKER) (test code = 354) CREATININE (BEAKER) 0.62 mg/dL 0.57-1.25 (test code = 358) GLUCOSE RANDOM 270 mg/dL 70-105 H (BEAKER) (test code = 652) CALCIUM (BEAKER) 8.3 mg/dL 8.4-10.2 L (test code = 697) AST (SGOT) (BEAKER) 397 U/L 5-34 H (test code = 353) ALT (SGPT) (BEAKER) 95 U/L 6-55 H (test code = 347) EGFR (BEAKER) (test 165 ESTIMATE D GFR IS code = 1092) mL/min/1.73 sq NOT ACCURA TE m CREATININE CLEARANCE IN PREDICTING GLOMERULAR FILTRATION RATE . ESTIMATED GFR I S NOT APPLICABLE FOR DIALYSIS PATIEN TS. Filler Block Inserter Remover ID - BSIMMUNOGLOBULIN A (IGA)2021-09-01 07:27:15 Test Item Value Reference Range Interpretation Comments IMMUNOGLOBULIN A (IGA) (BEAKER) 235 mg/dL 63-484 (test code = 639) Filler Block Inserter Remover ID - [id number] 07:11:49 Test Item Value Reference Range Interpretation Comments PROTIME (BEAKER) (test 13.5 seconds 11.9-14.2 code = 759) INR (BEAKER) (test 1.04 See_Comment [Automat ed code = 370) message] The sy stem which generated this result transmitted reference range : <=5.90. The reference range was not used to interpret this result as normal/abnormal . PARTIAL THROMBOPLASTIN 32.1 seconds 22.5-36.0 TIME (BEAKER) (test code = 760) RECOMMENDED COUMADIN/WARFARIN INR THERAPY RANGESSTANDARD DOSE: 2.0 - 3.0 Includes: PROPHYLAXIS forvenous thrombosis, systemic embolization; TREATMENT for venous thrombosis and/or pulmonary embolus.HIGH RISK: Target INR is 2.5-3.5 for patients with mechanical heart valves.PROTHROMBIN [id number] 07:11:14 Test Item Value Reference Range Interpretation Comments PROTIME (BEAKER) 13.5 seconds 11.9-14.2 (test code = 759) INR (BEAKER) (test 1.04 See_Comment [Automat ed message] code = 370) The system [employer] generated this result transmitted ref erence range: <=5.90. The reference range was not used to int erpret this result as normal/abnormal . RECOMMENDED COUMADIN/WARFARIN INR THERAPY RANGESSTANDARD DOSE: 2.0 - 3.0 Includes: PROPHYLAXIS forvenous thrombosis, systemic embolization; TREATMENT for venous thrombosis and/or pulmonary embolus.HIGH RISK: Target INR is 2.5-3.5 for patients with mechanical heart valves.POCT-GLUCOSE [id number] 22:01:13 Test Item Value Reference Range Interpretation Comments POC-GLUCOSE METER 219 mg/dL 70-110 H : TESTED A T [facility] 6720 (BEAKER) (test code = [facility], 1538) 11261: Filler Block Inserter Remover/Techni dakota ID = [id number] for FABRIZIO JOYCE POCT-GLUCOSE [id number] 17:24:51 Test Item Value Reference Range Interpretation Comments POC-GLUCOSE METER 177 mg/dL 70-110 H : TESTED A T [facility] 6720 (BEAKER) (test code = [facility], 1538) 68988: Filler Block Inserter Remover/Techni dakota ID = [id number] for Laura Ch [id number] 14:29:25 Test Item Value Reference Range Interpretation Comments RPR SCREEN (AKER) (test code = Nonreactive Nonreactive 420) RHEUMATOID FACTOR [id number] 14:27:52 Test Item Value Reference Range Interpretation Comments RHEUMATOID FACTOR TITER (BEAKER) (test :8 Negative code = 2285) RHEUMATOID FACTOR AB, REFLEX TO [id number] 14:26:49 Test Item Value Reference Range Interpretation Comments RHEUMATOID FACTOR (BEAKER) (test Positive Negative code = 573) POCT-GLUCOSE [id number] 13:43:32 Test Item Value Reference Range Interpretation Comments POC-GLUCOSE METER 163 mg/dL 70-110 H : TESTED A T [facility] 6720 ([facility]) (test code = [facility], 1538) 64331: Filler Block Inserter Remover/Techni dakota ID = [id number] for Laura Ch RETICULOCYTE [id number] 09:04:11 Test Item Value Reference Range Interpretation Comments RETICULOCYTE COUNT PCT ([facility]) (test 0.4 % 0.5-1.8 L code = 575) Filler Block Inserter Remover ID - 6000POCT-GLUCOSE [id number] 08:53:33 Test Item Value Reference Range Interpretation Comments POC-GLUCOSE METER 117 mg/dL 70-110 H : TESTED A T [facility] 6720 ([facility]) (test code = [facility], 1538) 82897: Filler Block Inserter Remover/Techni dakota ID = [id number] for José Miguel Elliott [id number] 08:02:13 Test Item Value Reference Range Interpretation Comments FERRITIN (BEAKER) (test code = 98141.20 ng/mL 5.00-275.00 H 361) Filler Block Inserter Remover ID - ADMINOperator ID - ADMINCOMPLEMENT COMPONENT [id number] 06:48:01 Test Item Value Reference Range Interpretation Comments C4 COMPLEMENT (AKER) (test code = < mg/dL 15-57 L 394) Filler Block Inserter Remover ID - BSHIV-1 ANTIGEN WITH HIV-1/2 [id number] 06:38:19 Test Item Value Reference Range Interpretation Comments HIV-1 ANTIGEN WITH HIV 1\\T\\2 Nonreactive Nonreactive ANTIBODY (2) ([facility]) (test code = 2586) Filler Block Inserter Remover ID - BSCOMPLEMENT COMPONENT [id number] 06:32:35 Test Item Value Reference Range Interpretation Comments C3 COMPLEMENT (BEAKER) (test code = 13 mg/dL 82-193 L 393) Filler Block Inserter Remover ID - BSCOMPREHENSIVE METABOLIC [id number] 06:30:18 Test Item Value Reference Range Interpretation Comments TOTAL PROTEIN 5.2 gm/dL 6.0-8.3 L (AKER) (test code = 770) ALBUMIN (AKER) 2.3 g/dL 3.5-5.0 L (test code = 1145) ALKALINE PHOSPHATASE 153 U/L 40-150 H (BEAKER) (test code = 346) BILIRUBIN TOTAL 0.8 mg/dL 0.2-1.2 (BEAKER) (test code = 377) SODIUM (BEAKER) (test 138 meq/L 136-145 code = 381) POTASSIUM (BEAKER) 2.9 meq/L 3.5-5.1 L (test code = 379) CHLORIDE (BEAKER) 100 meq/L 98-107 (test code = 382) CO2 (BEAKER) (test 30 meq/L 22-29 H code = 355) BLOOD UREA NITROGEN 7 mg/dL 7-21 (BEAKER) (test code = 354) CREATININE (BEAKER) 0.59 mg/dL 0.57-1.25 (test code = 358) GLUCOSE RANDOM 121 mg/dL 70-105 H (BEAKER) (test code = 652) CALCIUM (BEAKER) 8.4 mg/dL 8.4-10.2 (test code = 697) AST (SGOT) (BEAKER) 391 U/L 5-34 H (test code = 353) ALT (SGPT) (BEAKER) 85 U/L 6-55 H (test code = 347) EGFR (BEAKER) (test 175 ESTIMATE D GFR IS code = 1092) mL/min/1.73 sq NOT ACCURA TE m CREATININE CLEARANCE IN PREDICTING GLOMERULAR FILTRATION RATE . ESTIMATED GFR I S NOT APPLICABLE FOR DIALYSIS PATIEN TS. Filler Block Inserter Remover ID - [id number] 06:30:18 Test Item Value Reference Range Interpretation Comments MAGNESIUM (BEAKER) (test code = 1.5 mg/dL 1.6-2.6 L 627) Filler Block Inserter Remover ID - [id number] 06:13:21 Test Item Value Reference Range Interpretation Comments PROTIME (BEAKER) (test 13.8 seconds 11.9-14.2 code = 759) INR (BEAKER) (test 1.08 See_Comment [Automat ed code = 370) message] The sy stem which generated this result transmitted reference range : <=5.90. The reference range was not used to interpret this result as normal/abnormal . PARTIAL THROMBOPLASTIN 39.8 seconds 22.5-36.0 H TIME (BEAKER) (test code = 760) RECOMMENDED COUMADIN/WARFARIN INR THERAPY RANGESSTANDARD DOSE: 2.0 - 3.0 Includes: PROPHYLAXIS forvenous thrombosis, systemic embolization; TREATMENT for venous thrombosis and/or pulmonary embolus.HIGH RISK: Target INR is 2.5-3.5 for patients with mechanical heart valves.PROTHROMBIN [id number] 06:12:36 Test Item Value Reference Range Interpretation Comments PROTIME (BEAKER) 13.8 seconds 11.9-14.2 (test code = 759) INR (BEAKER) (test 1.08 See_Comment [Automat ed message] code = 370) The system [employer] generated this result transmitted ref erence range: <=5.90. The reference range was not used to int erpret this result as normal/abnormal . RECOMMENDED COUMADIN/WARFARIN INR THERAPY RANGESSTANDARD DOSE: 2.0 - 3.0 Includes: PROPHYLAXIS forvenous thrombosis, systemic embolization; TREATMENT for venous thrombosis and/or pulmonary embolus.HIGH RISK: Target INR is 2.5-3.5 for patients with mechanical heart valves.CBC (HEMOGRAM ONLY)2021-08-31 06:02:50 Test Item Value Reference Range Interpretation Comments WHITE BLOOD CELL COUNT (BEAKER) 2.9 K/ L 3.5-10.5 L (test code = 775) RED BLOOD CELL COUNT (BEAKER) 4.38 M/ L 4.63-6.08 L (test code = 761) HEMOGLOBIN (BEAKER) (test code = 10.2 GM/DL 13.7-17.5 L 410) HEMATOCRIT (BEAKER) (test code = 32.2 % 40.1-51.0 L 411) MEAN CORPUSCULAR VOLUME (BEAKER) 73.5 fL 79.0-92.2 L (test code = 753) MEAN CORPUSCULAR HEMOGLOBIN 23.3 pg 25.7-32.2 L (BEAKER) (test code = 751) MEAN CORPUSCULAR HEMOGLOBIN CONC 31.7 GM/DL 32.3-36.5 L (BEAKER) (test code = 752) RED CELL DISTRIBUTION WIDTH 16.1 % 11.6-14.4 H (BEAKER) (test code = 412) PLATELET COUNT (BEAKER) (test code 35 K/CU MM 150-450 L = 756) NUCLEATED RED BLOOD CELLS (BEAKER) 0 /100 WBC 0-0 (test code = 413) BLOOD [id number] 05:00:52 Test Item Value Reference Range Interpretation Comments CULTURE (BEAKER) (test No growth in 5 days code = 1095) BLOOD [id number] 03:00:57 Test Item Value Reference Range Interpretation Comments CULTURE (BEAKER) (test No growth in 5 days code = 1095) The specimen volume collected for this blood culture was below the optimum (10 mL per bottle or 20 mL total). Use of lower volumes may adversely affect recovery and/or detection times of some organisms.POCT-GLUCOSE [id number] 21:20:13 Test Item Value Reference Range Interpretation Comments POC-GLUCOSE METER 132 mg/dL 70-110 H : TESTED A T [facility] 6720 (BEAKER) (test code = [facility], 1538) 69493: Filler Block Inserter Remover/Techni dakota ID = [id number] for SA NDERS, AXEL POCT-GLUCOSE [id number] 17:39:12 Test Item Value Reference Range Interpretation Comments POC-GLUCOSE METER 137 mg/dL 70-110 H : TESTED A T [facility] 6720 (BEAKER) (test code = [facility], 1538) 06564: Filler Block Inserter Remover/Techni dakota ID = [id number] for Nury Link PERIPHERAL BLOOD SMEAR - PATHOLOGIST [id number] 16:27:42 Test Item Value Reference Range Interpretation Comments PERIPHERAL SMR REVIEW Microcytic hypochromic (BEAKER) (test code = anemia with mild 2640) anisopoikilocytosis. Leukopenia with neutropenia and left shifted granulocytic elements. Rare atypical lymphocytes. Decreased platelets; no significant platelet clumping/satellitism identified. [id number] Brea Morales (BEAKER) (test code = Xavier Gallegos 2849) POCT-GLUCOSE [id number] 12:50:21 Test Item Value Reference Range Interpretation Comments POC-GLUCOSE METER 148 mg/dL 70-110 H : TESTED A T [facility] 6720 (BEAKER) (test code = [facility], 1538) 35064: Filler Block Inserter Remover/Techni dakota ID = [id number] for Nury Link MISCELLANEOUS LAB [id number] 12:30:57 Test Item Value Reference Range Interpretation Comments SCAN RESULT (test code = see scanned results [id number]) see scanned [id number] 11:53:39 Test Item Value Reference Range Interpretation Comments LIPASE (BEAKER) (test code = 749) 969 U/L 8-78 H Filler Block Inserter Remover ID - BSANA TITER AND [id number] 10:59:38 Test Item Value Reference Range Interpretation Comments STU TITER (BEAKER) (test code = :640 1541) STU PATTERN (BEAKER) (test code = Homogeneous 1781) ANTI-NUCLEAR ANTIBODY (STU)2021-08-30 10:59:32 Test Item Value Reference Range Interpretation Comments ANTI-NUCLEAR ANTIBODY (STU) (BEAKER) Positive Negative A (test code = 418) Test performed by IFA method.(MANUAL DIFFERENTIAL)2021-08-30 10:25:21 Test Item Value Reference Range Interpretation Comments NEUTROPHILS - REL (DIFF) 77 % (BEAKER) (test code = 1359) LYMPHOCYTES - REL (DIFF) 10 % (BEAKER) (test code = 1360) MONOCYTES - REL (DIFF) 6 % (BEAKER) (test code = 1361) METAMYELOCYTES-REL (DIFF) 2 % 0-0 H (BEAKER) (test code = 258) BANDS - REL (DIFF) 2 % 0-10 (BEAKER) (test code = 1348) ATYPICAL LYMPHOCYTE - REL 3 % 0-0 H Th is is a corrected (DIFF) (BEAKER) (test result . Previous code = 260) result was 1 % on 08/29/2021 at 12 34 CDT MYELOBLASTS - REL (DIFF) 2 % 0-0 H Thi s is a corrected (BEAKER) (test code = result . Previous 1364) result was 2 % on 08/29/2021 at 12 34 CDT NEUTROPHILS - ABS (DIFF) 2.23 K/ L 1.80-8.00 (BEAKER) (test code = 1365) LYMPHOCYTES - ABS (DIFF) 0.29 K/ L 1.48-4.50 L (BEAKER) (test code = 1366) MONOCYTES - ABS (DIFF) 0.17 K/ L 0.00-1.30 (BEAKER) (test code = 1367) METAMYELOCTYES - ABS 0.06 K/ L 0.00-0.00 H (DIFF) (BEAKER) (test code = 261) MYELOBLASTS - ABS (DIFF) 0.06 K/ L 0.00-0.00 H Thi s is a corrected (BEAKER) (test code = result . Previous 1370) result was 0.06 K/ L on 08/29/2021 at 1234 CDT BANDS-ABS (DIFF) (BEAKER) 0.1 K/ L 0.0-0.8 (test code = 1349) ATYPICAL LYMPHOCYTES - 0.09 K/ L 0.00-0.00 H This is a corrected ABS (DIFF) (BEAKER) (test re sult. Previous code = 263) result was 0.03 K/ L on 08/29/2021 at 1234 CDT TOTAL COUNTED (BEAKER) 100 (test code = 1351) BANDS + SEGMENTED 2.29 NEUTROPHILS (BEAKER) (test code = 1352) WBC MORPHOLOGY (BEAKER) Normal (test code = 487) PLT MORPHOLOGY (BEAKER) Normal (test code = 486) ELLIPTOCYTES (BEAKER) 1+ few (test code = 962) SPHEROCYTES (BEAKER) 1+ few (test code = 768) POCT-GLUCOSE [id number] 08:23:03 Test Item Value Reference Range Interpretation Comments POC-GLUCOSE METER 97 mg/dL 70-110 : TESTED A T [facility] 67[facility] (BEAKER) (test code = [place] [facility], 1538) 92160: Filler Block Inserter Remover/Techni dakota ID = [id number] for Nury Gold [id number] 04:36:10 Test Item Value Reference Range Interpretation Comments MAGNESIUM (BEAKER) (test code = 1.5 mg/dL 1.6-2.6 L 627) Filler Block Inserter Remover ID - BSC-REACTIVE [id number] 04:36:10 Test Item Value Reference Range Interpretation Comments C-REACTIVE PROTEIN (BEAKER) (test 0.77 mg/dL 0.00-0.50 H code = 676) Filler Block Inserter Remover ID - BSCOMPREHENSIVE METABOLIC [id number] 04:36:09 Test Item Value Reference Range Interpretation Comments TOTAL PROTEIN 5.2 gm/dL 6.0-8.3 L (BEAKER) (test code = 770) ALBUMIN (BEAKER) 2.3 g/dL 3.5-5.0 L (test code = 1145) ALKALINE PHOSPHATASE 146 U/L 40-150 (BEAKER) (test code = 346) BILIRUBIN TOTAL 0.8 mg/dL 0.2-1.2 (BEAKER) (test code = 377) SODIUM (BEAKER) (test 137 meq/L 136-145 code = 381) POTASSIUM (BEAKER) 3.0 meq/L 3.5-5.1 L (test code = 379) CHLORIDE (BEAKER) 100 meq/L 98-107 (test code = 382) CO2 (BEAKER) (test 28 meq/L 22-29 code = 355) BLOOD UREA NITROGEN 5 mg/dL 7-21 L (BEAKER) (test code = 354) CREATININE (BEAKER) 0.64 mg/dL 0.57-1.25 (test code = 358) GLUCOSE RANDOM 94 mg/dL 70-105 (BEAKER) (test code = 652) CALCIUM (BEAKER) 8.5 mg/dL 8.4-10.2 (test code = 697) AST (SGOT) (BEAKER) 399 U/L 5-34 H (test code = 353) ALT (SGPT) (BEAKER) 91 U/L 6-55 H (test code = 347) EGFR (BEAKER) (test 159 ESTIMATE D GFR IS code = 1092) mL/min/1.73 sq NOT ACCURA TE m CREATININE CLEARANCE IN PREDICTING GLOMERULAR FILTRATION RATE . ESTIMATED GFR I S NOT APPLICABLE FOR DIALYSIS PATIEN TS. Filler Block Inserter Remover ID - [id number] 04:12:17 Test Item Value Reference Range Interpretation Comments PROTIME (BEAKER) (test 13.8 seconds 11.9-14.2 code = 759) INR (BEAKER) (test 1.08 See_Comment [Automat ed code = 370) message] The sy stem which generated this result transmitted reference range : <=5.90. The reference range was not used to interpret this result as normal/abnormal . PARTIAL THROMBOPLASTIN 37.4 seconds 22.5-36.0 H TIME (BEAKER) (test code = 760) RECOMMENDED COUMADIN/WARFARIN INR THERAPY RANGESSTANDARD DOSE: 2.0 - 3.0 Includes: PROPHYLAXIS forvenous thrombosis, systemic embolization; TREATMENT for venous thrombosis and/or pulmonary embolus.HIGH RISK: Target INR is 2.5-3.5 for patients with mechanical heart valves.PROTHROMBIN [id number] 04:11:15 Test Item Value Reference Range Interpretation Comments PROTIME (BEAKER) 13.8 seconds 11.9-14.2 (test code = 759) INR (BEAKER) (test 1.08 See_Comment [Automat ed message] code = 370) The system [employer] generated this result transmitted ref erence range: <=5.90. The reference range was not used to int erpret this result as normal/abnormal . RECOMMENDED COUMADIN/WARFARIN INR THERAPY RANGESSTANDARD DOSE: 2.0 - 3.0 Includes: PROPHYLAXIS forvenous thrombosis, systemic embolization; TREATMENT for venous thrombosis and/or pulmonary embolus.HIGH RISK: Target INR is 2.5-3.5 for patients with mechanical heart valves.CBC (HEMOGRAM ONLY)2021-08-30 04:00:32 Test Item Value Reference Range Interpretation Comments WHITE BLOOD CELL COUNT (BEAKER) 2.9 K/ L 3.5-10.5 L (test code = 775) RED BLOOD CELL COUNT (BEAKER) 4.59 M/ L 4.63-6.08 L (test code = 761) HEMOGLOBIN (BEAKER) (test code = 10.6 GM/DL 13.7-17.5 L 410) HEMATOCRIT (BEAKER) (test code = 32.8 % 40.1-51.0 L 411) MEAN CORPUSCULAR VOLUME (BEAKER) 71.5 fL 79.0-92.2 L (test code = 753) MEAN CORPUSCULAR HEMOGLOBIN 23.1 pg 25.7-32.2 L (BEAKER) (test code = 751) MEAN CORPUSCULAR HEMOGLOBIN CONC 32.3 GM/DL 32.3-36.5 (BEAKER) (test code = 752) RED CELL DISTRIBUTION WIDTH 16.1 % 11.6-14.4 H (BEAKER) (test code = 412) PLATELET COUNT (BEAKER) (test code 62 K/CU MM 150-450 L = 756) NUCLEATED RED BLOOD CELLS (BEAKER) 0 /100 WBC 0-0 (test code = 413) POCT-GLUCOSE [id number] 21:48:31 Test Item Value Reference Range Interpretation Comments POC-GLUCOSE METER 136 mg/dL 70-110 H : TESTED Daphne Miller [facility] 6720 ([place]) (test code = [facility] [place], 1538) 40961: Filler Block Inserter Remover/Techni dakota ID = [id number] for AXEL COLUNGA SARS-COV2/RT-PCR ([facility])2021-08-29 20:38:24 Test Item Value Reference Range Interpretation Comments SARS-COV2/RT-PCR (test code = Negative Negative [id number]) Negative result for this test determines that SARS-CoV-2 RNA was not present in the specimen above the Limit of Detection (LOD). However, Negative results do not preclude SARS-CoV-2 infection and should not be used as the sole basis for treatment or patient management decisions. Negative results must be combined with clinical observations, patient history, and epidemiological information. A false negative result may occur if a specimen is improperly collected, transported, or handled. A false negative result should be considered if patient's recent exposures or clinical presentation indicate that COVID-19 (SARS-CoV-2) is likely and diagnostic tests for other causes of illness are negative. Re-testing should be considered in cases of suspected false negatives.The limit of detection for this assay is 100 copies/mL.This SARS-CoV-2 test is a real-time RT_PCR test intended for the qualitative detection of nucleic acid from SARS-CoV-2 in a nasopharyngeal swab specimen collected from individuals suspected of COVID-19 by their healthcare provider.This test has not been Food and Drug Administration (FDA) cleared or approved. This is a modified version of an approved Emergency Use Authorization (EUA) and is in the process of review by the FDA. Once authorized by the FDA, the issued EUA will be e ffective until the declaration that circumstances exist justifying the authorization of the emergency use of in vitro diagnostic tests for detection and/or diagnosis of COVID-19 is terminated under Section 564(b)(2) of the Act or the EUA is revoked under Section 564(g) of the Act.Testing was performedusing the [facility] SARS-CoV-2 assay.Fact Sheet for Healthcare Providers:https://www.[employer]/pedro/RT SARS-CoV-2 HCP Fact Sheet 51- 218278.pdfFact Sheet for Healthcare Patients:https://www.[employer]/pedro/RT SARS-CoV-2 Patient Fact Sheet EN [id number].pdfPOCT-GLUCOSE [id number] 17:55:13 Test Item Value Reference Range Interpretation Comments POC-GLUCOSE METER 109 mg/dL 70-110 : TESTED A T [facility] 6720 (BEAKER) (test code = [facility], 1538) 10063: Filler Block Inserter Remover/Techni dakota ID = [id number] for Toy Lopez [id number] 14:07:15 Test Item Value Reference Range Interpretation Comments LIPASE (BEAKER) (test code = 749) > U/L 8-78 H Filler Block Inserter Remover ID - FATMATA [id number] 14:02:51 Test Item Value Reference Range Interpretation Comments FIBRINOGEN LEVEL (BEAKER) (test 189 mg/dl 225-434 L code = 658) [id number] 13:33:46 Test Item Value Reference Range Interpretation Comments PHOSPHORUS (BEAKER) 2.1 mg/dL 2.3-4.7 L Specimen slightly (test code = 604) hemolyzed Filler Block Inserter Remover ID - FATMATA WPOCT-GLUCOSE [id number] 11:56:19 Test Item Value Reference Range Interpretation Comments POC-GLUCOSE METER 109 mg/dL 70-110 : TESTED A T [facility] 6720 (BEAKER) (test code = [facility], 1538) 48598: Filler Block Inserter Remover/Techni dakota ID = [id number] for Toy Lopez [id number] 10:37:25 Test Item Value Reference Range Interpretation Comments MAGNESIUM (BEAKER) 1.4 mg/dL 1.6-2.6 L Specimen slightly (test code = 627) hemolyzed Filler Block Inserter Remover ID - BSCOMPREHENSIVE METABOLIC [id number] 10:37:25 Test Item Value Reference Range Interpretation Comments TOTAL PROTEIN 5.2 gm/dL 6.0-8.3 L Specimen sligh tly (BEAKER) (test code = hemoly zed 770) ALBUMIN (BEAKER) 2.3 g/dL 3.5-5.0 L Specimen sl ightly (test code = 1145) hemolyzed ALKALINE PHOSPHATASE 142 U/L 40-150 (BEAKER) (test code = 346) BILIRUBIN TOTAL 0.8 mg/dL 0.2-1.2 Specimen sli ghtly (BEAKER) (test code = hemoly zed 377) SODIUM (BEAKER) (test 139 meq/L 136-145 code = 381) POTASSIUM (BEAKER) 3.0 meq/L 3.5-5.1 L Specimen slightly (test code = 379) hemolyzed CHLORIDE (BEAKER) 104 meq/L 98-107 (test code = 382) CO2 (BEAKER) (test 25 meq/L 22-29 code = 355) BLOOD UREA NITROGEN 7 mg/dL 7-21 (BEAKER) (test code = 354) CREATININE (BEAKER) 0.66 mg/dL 0.57-1.25 Specimen slightly (test code = 358) hemolyzed GLUCOSE RANDOM 118 mg/dL 70-105 H (BEAKER) (test code = 652) CALCIUM (BEAKER) 8.1 mg/dL 8.4-10.2 L (test code = 697) AST (SGOT) (BEAKER) 344 U/L 5-34 H Specimen slightly (test code = 353) hemolyzed ALT (SGPT) (BEAKER) 80 U/L 6-55 H Specimen slightly (test code = 347) hemolyzed EGFR (BEAKER) (test 154 ESTIMATE D GFR IS code = 1092) mL/min/1.73 sq NOT ACCURA TE m CREATININE CLEARANCE IN PREDICTING GLOMERULAR FILTRATION RATE . ESTIMATED GFR I S NOT APPLICABLE FOR DIALYSIS PATIEN TS. Filler Block Inserter Remover ID - BSPOCT-GLUCOSE [id number] 08:55:18 Test Item Value Reference Range Interpretation Comments POC-GLUCOSE METER 101 mg/dL 70-110 : TESTED A T [facility] 6720 (BEAKER) (test code = [place], 1538) [address]: Filler Block Inserter Remover/Techni dakota ID = [id number] for Toy Lopez PROTHROMBIN TIME/[id number] 05:16:55 Test Item Value Reference Range Interpretation Comments PROTIME (BEAKER) 16.3 seconds 11.9-14.2 H (test code = 759) INR (BEAKER) (test 1.33 See_Comment [Automat ed message] code = 370) The system [employer] generated this result transmitted ref erence range: <=5.90. The reference range was not used to int erpret this result as normal/abnormal . RECOMMENDED COUMADIN/WARFARIN INR THERAPY RANGESSTANDARD DOSE: 2.0 - 3.0 Includes: PROPHYLAXIS forvenous thrombosis, systemic embolization; TREATMENT for venous thrombosis and/or pulmonary embolus.HIGH RISK: Target INR is 2.5-3.5 for patients with mechanical heart valves.CBC (HEMOGRAM ONLY)2021-08-29 05:11:05 Test Item Value Reference Range Interpretation Comments WHITE BLOOD CELL COUNT (BEAKER) 2.9 K/ L 3.5-10.5 L (test code = 775) RED BLOOD CELL COUNT (BEAKER) 4.37 M/ L 4.63-6.08 L (test code = 761) HEMOGLOBIN (BEAKER) (test code = 10.1 GM/DL 13.7-17.5 L 410) HEMATOCRIT (BEAKER) (test code = 31.8 % 40.1-51.0 L 411) MEAN CORPUSCULAR VOLUME (BEAKER) 72.8 fL 79.0-92.2 L (test code = 753) MEAN CORPUSCULAR HEMOGLOBIN 23.1 pg 25.7-32.2 L (BEAKER) (test code = 751) MEAN CORPUSCULAR HEMOGLOBIN CONC 31.8 GM/DL 32.3-36.5 L (BEAKER) (test code = 752) RED CELL DISTRIBUTION WIDTH 16.0 % 11.6-14.4 H (BEAKER) (test code = 412) PLATELET COUNT (BEAKER) (test code 67 K/CU MM 150-450 L = 756) NUCLEATED RED BLOOD CELLS (BEAKER) 0 /100 WBC 0-0 (test code = 413) POCT-GLUCOSE [id number] 04:41:33 Test Item Value Reference Range Interpretation Comments POC-GLUCOSE METER 122 mg/dL 70-110 H : TESTED A T [facility] 6720 (BEAKER) (test code = [place]NA [place], 1538) [id number]: Filler Block Inserter Remover/Techni dakota ID = [id number] for Rachele Singh HEPATITIS B SURFACE [id number] 19:07:46 Test Item Value Reference Range Interpretation Comments HEPATITIS B SURFACE ANTIGEN (2) Nonreactive Nonreactive (BEAKER) (test code = 2585) Specimen is considered negative for HBsAg.HEPATITIS C [id number] 18:37:24 Test Item Value Reference Range Interpretation Comments HEPATITIS C ANTIBODY (BEAKER) Nonreactive Nonreactive (test code = 367) Filler Block Inserter Remover ID - BSHEPATITIS A ANTIBODY, [id number] 18:29:47 Test Item Value Reference Range Interpretation Comments HEPATITIS A IGG ANTIBODY (BEAKER) Reactive Nonreactive A (test code = 2797) Filler Block Inserter Remover ID - BSHEPATITIS B SURFACE [id number] 18:27:24 Test Item Value Reference Range Interpretation Comments HEPATITIS B SURFACE ANTIBODY 328.2 mIU/mL <8.0 H (BEAKER) (test code = 647) Filler Block Inserter Remover ID - BSHEPATITIS B CORE ANTIBODY, [id number] 18:27:24 Test Item Value Reference Range Interpretation Comments HEPATITIS B CORE TOTAL ANTIBODY Nonreactive Nonreactive (BEAKER) (test code = 497) Filler Block Inserter Remover ID - BSRAPID DRUG SCREEN, [id number] 18:17:41 Test Item Value Reference Range Interpretation Comments BARBITURATE URINE (BEAKER) (test Negative Negative code = 725) BENZODIAZEPINE SCREEN URINE (BEAKER) Negative Negative (test code = 726) COCAINE (METAB.) SCREEN (BEAKER) Negative Negative (test code = 1164) METHADONE SCREEN (BEAKER) (test code Negative Negative = 1436) OPIATE SCREEN URINE (BEAKER) (test Negative Negative code = 734) CANNABINOID SCREEN URINE (BEAKER) Negative Negative (test code = 727) AMPH/METHAMPH SCREEN (BEAKER) (test Negative Negative code = 1438) PHENCYCLIDINE SCREEN URINE (BEAKER) Negative Negative (test code = 608) PH UA (BEAKER) (test code = 467) 7.5 5.0-8.0 DRUG CUTOFF CONC.Cocaine 300 ng/mL Cannabinoid 50 ng/mLBenzodiazepine 200 ng/mLBarbiturate 200 ng/mLPhencyclidine 25 ng/mLOpiate 300 ng/mLMethadone 300 ng/mLAmphetamine/ 1000 ng/mL MethamphetamineThis assay provides an unconfirmed qualitative test result for the clinical management of patients in emergency situations. Chain of custody not maintained. Some nyzw-mii-exobasa medications, as well as adulterants, may cause inaccurate results. Clinical correlation should be applied. A more comprehensivedrug screen or confirmation of a detected drug may be performed upon request.Filler Block Inserter Remover ID - BSIMMUNOGLOBULIN G (IGG)2021-08-28 18:13:19 Test Item Value Reference Range Interpretation Comments IMMUNOGLOBULIN G (IGG) 1400 mg/dL See_Comment [Aut omated message] (GENEVA) (test code = The sy stem which 427) generated this result transmit hernandez reference range : 540-1,822. The reference range was not used to interpret this result as normal/abnormal . Filler Block Inserter Remover ID - BSIRON, TIBC, % SAT. (WITHOUT FERRITIN)2021-08-28 18:13:19 Test Item Value Reference Range Interpretation Comments IRON (LEOAKER) (test code = 547) 139.0 ug/dL 40.0-160.0 TOTAL IRON BINDING CAPACITY 178 ug/dL 250-450 L (BEAKER) (test code = 769) IRON % SATURATION (2) (LEOAKER) 78 % 20-55 H (test code = 2590) Filler Block Inserter Remover ID - [id number] 16:36:26 Test Item Value Reference Range Interpretation Comments FERRITIN (LEOAKER) (test code = 09527.56 ng/mL 5.00-275.00 H 361) Filler Block Inserter Remover ID - BSOperator ID - [id number] 14:45:11 Test Item Value Reference Range Interpretation Comments ALPHA-1 ANTITRYPSIN 130.90 mg/dL 90.00-200.00 Specimen slightly (GENEVA) (test code = hemoly zed 502) Filler Block Inserter Remover ID - DBPOCT-GLUCOSE [id number] 14:23:23 Test Item Value Reference Range Interpretation Comments POC-GLUCOSE METER 97 mg/dL 70-110 : TESTED A T [facility] 6720 ([facility]) (test code = [facility], 1538) [address]: Filler Block Inserter Remover/Techni dakota ID = [id number] for José Miguel Larkin POCT-GLUCOSE [id number] 08:20:47 Test Item Value Reference Range Interpretation Comments POC-GLUCOSE METER 85 mg/dL 70-110 : TESTED A T [facility] 6720 ([facility]) (test code = [facility], 1538) [address]: Filler Block Inserter Remover/Techni dakota ID = [id number] for José Miguel Larkin COMPREHENSIVE METABOLIC [id number] 06:21:17 Test Item Value Reference Range Interpretation Comments TOTAL PROTEIN 4.8 gm/dL 6.0-8.3 L (BEAKER) (test code = 770) ALBUMIN (BEAKER) 2.2 g/dL 3.5-5.0 L (test code = 1145) ALKALINE PHOSPHATASE 129 U/L 40-150 (BEAKER) (test code = 346) BILIRUBIN TOTAL 1.1 mg/dL 0.2-1.2 (BEAKER) (test code = 377) SODIUM (BEAKER) (test 135 meq/L 136-145 L code = 381) POTASSIUM (BEAKER) 3.1 meq/L 3.5-5.1 L (test code = 379) CHLORIDE (BEAKER) 101 meq/L 98-107 (test code = 382) CO2 (BEAKER) (test 26 meq/L 22-29 code = 355) BLOOD UREA NITROGEN 10 mg/dL 7-21 (BEAKER) (test code = 354) CREATININE (BEAKER) 0.66 mg/dL 0.57-1.25 (test code = 358) GLUCOSE RANDOM 87 mg/dL 70-105 (BEAKER) (test code = 652) CALCIUM (BEAKER) 7.7 mg/dL 8.4-10.2 L (test code = 697) AST (SGOT) (BEAKER) 284 U/L 5-34 H (test code = 353) ALT (SGPT) (BEAKER) 68 U/L 6-55 H (test code = 347) EGFR (BEAKER) (test 154 ESTIMATE D GFR IS code = 1092) mL/min/1.73 sq NOT ACCURA TE m CREATININE CLEARANCE IN PREDICTING GLOMERULAR FILTRATION RATE . ESTIMATED GFR I S NOT APPLICABLE FOR DIALYSIS PATIEN TS. Filler Block Inserter Remover ID - [id number] 06:03:12 Test Item Value Reference Range Interpretation Comments MAGNESIUM (BEAKER) (test code = 1.8 mg/dL 1.6-2.6 627) Filler Block Inserter Remover ID - DBCBC (HEMOGRAM ONLY)2021-08-28 05:04:44 Test Item Value Reference Range Interpretation Comments WHITE BLOOD CELL COUNT (BEAKER) 2.9 K/ L 3.5-10.5 L (test code = 775) RED BLOOD CELL COUNT (BEAKER) 4.41 M/ L 4.63-6.08 L (test code = 761) HEMOGLOBIN (BEAKER) (test code = 10.2 GM/DL 13.7-17.5 L 410) HEMATOCRIT (BEAKER) (test code = 32.1 % 40.1-51.0 L 411) MEAN CORPUSCULAR VOLUME (BEAKER) 72.8 fL 79.0-92.2 L (test code = 753) MEAN CORPUSCULAR HEMOGLOBIN 23.1 pg 25.7-32.2 L (BEAKER) (test code = 751) MEAN CORPUSCULAR HEMOGLOBIN CONC 31.8 GM/DL 32.3-36.5 L (BEAKER) (test code = 752) RED CELL DISTRIBUTION WIDTH 15.9 % 11.6-14.4 H (BEAKER) (test code = 412) PLATELET COUNT (BEAKER) (test code 83 K/CU MM 150-450 L = 756) NUCLEATED RED BLOOD CELLS (BEAKER) 0 /100 WBC 0-0 (test code = 413) POCT-GLUCOSE [id number] 22:30:31 Test Item Value Reference Range Interpretation Comments POC-GLUCOSE METER 99 mg/dL 70-110 : Notified RN/MD: TESTED (BEAKER) (test code = AT [facility] 67[address] [facility] 1538) [facility], 770 30: Filler Block Inserter Remover/Techni dakota ID = [id number] for Artur Anders MR, ABDOMEN, [id number] 18:44:00Unlisted Reason for Exam - Click Yes and Enter Reason Below->No [facility] : 2000 Sex: MFINAL REPORT TECHNIQUE: MRI of the abdomen and MRCP WITHOUT and WITH i ntravenous contrast. 3-D volume reconstructions were obtained to evaluate the biliary ductal system.INDICATION: Biliary obstruction suspected, pancreatitis. COMPARISON: None. FINDINGS: LOWER THORAX: Unremarkable. LIVER: Liver demonstrates diffusely decreased signal on opposed phase images consistentwith severe hepatic steatosis.. No focal hepatic lesions. BILIARY: Gallbladder is contracted. No cholelithiasis.. No biliary ductal dilatation or filling defect.SPLEEN: Spleen is enlarged measuring 15 cm in length..PANCREAS: Pancreas demonstrates normal T1 hyperintense signal. No peripancreatic edema.No focal masses or ductal dilatation. No peripancreatic fluid collection. ADRENALS: No adrenal nodules.KIDNEYS/URETERS: No hydronephrosis or solid mass lesions. PERITONEUM/RETROPERITONEUM: No free fluid.LYMPH NODES: No lymphadenopathy.VESSELS: Renal vein, splenic vein and superior mesenteric vein are patent.. GI TRACT: No distention or wall thickening. BONES AND SOFT TISSUES: Unremarkable. IMPRESSION:Severe hepatic steatosis. Splenomegaly. Normal appearance of the pancreas without findings to suggest acute pancreatitis. No peripancreatic fluid collection. No biliary ductal dilation. Signed: Armaan Llanes MDReport Verified Date/Time: 08/27/2021 18:44:20 Reading Location: [place] [address] CT Body Reading Room MR, ABDOMEN, [id number] 18:44:00Pancreas protocol Unlisted Reason for Exam - Click Yes and Enter Reason Below->No Does the patient have an implanted electronic device?->No [facility] : 2000 Sex: MFINAL REPORT TECHNIQUE: MRI of the abdomen and MRCP WITHOUT and WITH i ntravenous contrast. 3-D volume reconstructions were obtained to evaluate the biliary ductal system.INDICATION: Biliary obstruction suspected, pancreatitis. COMPARISON: None. FINDINGS: LOWER THORAX: Unremarkable. LIVER: Liver demonstrates diffusely decreased signal on opposed phase images consistentwith severe hepatic steatosis.. No focal hepatic lesions. BILIARY: Gallbladder is contracted. No cholelithiasis.. No biliary ductal dilatation or filling defect.SPLEEN: Spleen is enlarged measuring 15 cm in length..PANCREAS: Pancreas demonstrates normal T1 hyperintense signal. No peripancreatic edema.No focal masses or ductal dilatation. No peripancreatic fluid collection. ADRENALS: No adrenal nodules.KIDNEYS/URETERS: No hydronephrosis or solid mass lesions. PERITONEUM/RETROPERITONEUM: No free fluid.LYMPH NODES: No lymphadenopathy.VESSELS: Renal vein, splenic vein and superior mesenteric vein are patent.. GI TRACT: No distention or wall thickening. BONES AND SOFT TISSUES: Unremarkable. IMPRESSION:Severe hepatic steatosis. Splenomegaly. Normal appearance of the pancreas without findings to suggest acute pancreatitis. No peripancreatic fluid collection. No biliary ductal dilation. Signed: Armaan Llanes MDReport Verified Date/Time: 08/27/2021 18:44:20 Reading Location: [address] Body Reading Room COMPREHENSIVE METABOLIC [id number] 06:35:42 Test Item Value Reference Range Interpretation Comments TOTAL PROTEIN 5.0 gm/dL 6.0-8.3 L (BEAKER) (test code = 770) ALBUMIN (BEAKER) 2.2 g/dL 3.5-5.0 L (test code = 1145) ALKALINE PHOSPHATASE 114 U/L 40-150 (BEAKER) (test code = 346) BILIRUBIN TOTAL 1.1 mg/dL 0.2-1.2 (BEAKER) (test code = 377) SODIUM (BEAKER) (test 134 meq/L 136-145 L code = 381) POTASSIUM (BEAKER) 2.9 meq/L 3.5-5.1 L (test code = 379) CHLORIDE (BEAKER) 101 meq/L 98-107 (test code = 382) CO2 (BEAKER) (test 24 meq/L 22-29 code = 355) BLOOD UREA NITROGEN 16 mg/dL 7-21 (BEAKER) (test code = 354) CREATININE (BEAKER) 0.81 mg/dL 0.57-1.25 (test code = 358) GLUCOSE RANDOM 93 mg/dL 70-105 (BEAKER) (test code = 652) CALCIUM (BEAKER) 7.4 mg/dL 8.4-10.2 L (test code = 697) AST (SGOT) (BEAKER) 257 U/L 5-34 H (test code = 353) ALT (SGPT) (BEAKER) 67 U/L 6-55 H (test code = 347) EGFR (BEAKER) (test 121 ESTIMATE D GFR IS code = 1092) mL/min/1.73 sq NOT ACCURA TE m CREATININE CLEARANCE IN PREDICTING GLOMERULAR FILTRATION RATE . ESTIMATED GFR I S NOT APPLICABLE FOR DIALYSIS PATIEN TS. Filler Block Inserter Remover ID - PIJOVI [id number] 06:34:17 Test Item Value Reference Range Interpretation Comments MAGNESIUM (BEAKER) (test code = 2.1 mg/dL 1.6-2.6 627) Filler Block Inserter Remover ID - PIJOVI LCBC (HEMOGRAM ONLY)2021-08-27 06:06:14 Test Item Value Reference Range Interpretation Comments WHITE BLOOD CELL COUNT (BEAKER) 3.1 K/ L 3.5-10.5 L (test code = 775) RED BLOOD CELL COUNT (BEAKER) 4.50 M/ L 4.63-6.08 L (test code = 761) HEMOGLOBIN (BEAKER) (test code = 10.3 GM/DL 13.7-17.5 L 410) HEMATOCRIT (BEAKER) (test code = 32.5 % 40.1-51.0 L 411) MEAN CORPUSCULAR VOLUME (BEAKER) 72.2 fL 79.0-92.2 L (test code = 753) MEAN CORPUSCULAR HEMOGLOBIN 22.9 pg 25.7-32.2 L (BEAKER) (test code = 751) MEAN CORPUSCULAR HEMOGLOBIN CONC 31.7 GM/DL 32.3-36.5 L (BEAKER) (test code = 752) RED CELL DISTRIBUTION WIDTH 15.9 % 11.6-14.4 H (BEAKER) (test code = 412) PLATELET COUNT (BEAKER) (test 102 K/CU MM 150-450 L code = 756) NUCLEATED RED BLOOD CELLS 0 /100 WBC 0-0 (BEAKER) (test code = 413) [id number] 12:41:39 Test Item Value Reference Range Interpretation Comments LIPASE (BEAKER) (test code = 749) 1190 U/L 8-78 H Filler Block Inserter Remover ID - ALVINA MURINALYSIS W/ REFLEX URINE [id number] 07:27:57 Test Item Value Reference Range Interpretation Comments COLOR (BEAKER) (test code = 470) Yellow CLARITY (BEAKER) (test code = 469) Clear SPECIFIC GRAVITY UA (BEAKER) (test 1.046 1.001-1.035 H code = 468) PH UA (BEAKER) (test code = 467) 6.5 5.0-8.0 PROTEIN UA (BEAKER) (test code = 100 mg/dL Negative A 464) GLUCOSE UA (BEAKER) (test code = Negative Negative 365) KETONES UA (BEAKER) (test code = 10 mg/dL Negative A 371) BILIRUBIN UA (BEAKER) (test code = Positive Negative A 462) BLOOD UA (BEAKER) (test code = 461) Moderate Negative A NITRITE UA (BEAKER) (test code = Negative Negative 465) LEUKOCYTE ESTERASE UA (BEAKER) Negative Negative (test code = 466) UROBILINOGEN UA (BEAKER) (test code 6.0 mg/dL 0.2-1.0 H = 463) RBC UA (BEAKER) (test code = 519) 5 /HPF WBC UA (BEAKER) (test code = 520) 9 /HPF BACTERIA (BEAKER) (test code = 517) Rare CRYSTALS, URINE (BEAKER) (test code Rare = 1521) SOURCE(BEAKER) (test code = 2795) Filler Block Inserter Remover ID - [auto]Filler Block Inserter Remover ID - tech(CELLAVISION MANUAL DIFF)2021-08-26 03:09:42 Test Item Value Reference Range Interpretation Comments NEUTROPHILS - REL 85 % (CELLAVISION)(BEAKER) (test code = 2816) LYMPHOCYTES - REL 3 % (CELLAVISION)(BEAKER) (test code = 2817) MONOCYTES - REL 1 % (CELLAVISION)(BEAKER) (test code = 2818) METAMYELOCYTES - REL 1 % 0-0 H (CELLAVISION)(BEAKER) (test code = 2821) BANDS - REL (CELLAVISION)(BEAKER) 9 % 0-10 (test code = 2826) ATYPICAL LYMPHOCYTES - REL 1 % 0-0 H (CELLAVISION)(BEAKER) (test code = 2829) NEUTROPHILS - ABS 4.00 K/ul 1.78-5.38 (CELLAVISION)(BEAKER) (test code = 2830) LYMPHOCYTES - ABS 0.14 K/ul 1.32-3.57 L (CELLAVISION)(BEAKER) (test code = 2831) MONOCYTES - ABS 0.05 K/uL 0.30-0.82 L (CELLAVISION)(BEAKER) (test code = 2832) METAMYELOCYTES - ABS 0.05 K/uL 0.00-0.00 H (CELLAVISION)(BEAKER) (test code = 2836) BANDS - ABS (CELLAVISION)(BEAKER) 0.42 K/uL 0.00-0.80 (test code = 2840) ATYPICAL LYMPHOCYTES - ABS 0.05 K/uL 0.00-0.00 H (CELLAVISION)(BEAKER) (test code = 2858) TOTAL COUNTED (BEAKER) (test code 100 = 1351) WBC MORPHOLOGY (BEAKER) (test Normal code = 487) PLT MORPHOLOGY (BEAKER) (test Normal code = 486) ANISOCYTOSIS (BEAKER) (test code 2+ moderate = 961) MICROCYTES (BEAKER) (test code = 2+ moderate 965) POIKILOCYTES (BEAKER) (test code 2+ moderate = 966) SPHEROCYTES (BEAKER) (test code = 2+ moderate 768) MUNIRA CELLS (BEAKER) (test code = 1+ few 474) ARTIFACT (CELLAVISION)(BEAKER) Present (test code = 3432) PLATELET CONCENTRATION Decreased (CELLAVISION)(BEAKER) (test code = 3438) Filler Block Inserter Remover ID - [id number] ID - Kyree comments: Slide comments:CBC W/PLT COUNT & AUTO [id number] 03:09:41 Test Item Value Reference Range Interpretation Comments WHITE BLOOD CELL COUNT 4.7 K/ L 3.5-10.5 (BEAKER) (test code = 775) RED BLOOD CELL COUNT 5.23 M/ L 4.63-6.08 (BEAKER) (test code = 761) HEMOGLOBIN (BEAKER) 12.1 GM/DL 13.7-17.5 L (test code = 410) HEMATOCRIT (BEAKER) 37.2 % 40.1-51.0 L (test code = 411) MEAN CORPUSCULAR 71.1 fL 79.0-92.2 L VOLUME (BEAKER) (test code = 753) MEAN CORPUSCULAR 23.1 pg 25.7-32.2 L HEMOGLOBIN (BEAKER) (test code = 751) MEAN CORPUSCULAR 32.5 GM/DL 32.3-36.5 HEMOGLOBIN CONC (BEAKER) (test code = 752) RED CELL DISTRIBUTION 15.8 % 11.6-14.4 H WIDTH (BEAKER) (test code = 412) PLATELET COUNT 104 K/CU MM 150-450 L (BEAKER) (test code = 756) MEAN PLATELET VOLUME Unable to report due (BEAKER) (test code = to abn ormal Platelet 754) population distribution. NUCLEATED RED BLOOD 0 /100 WBC 0-0 CELLS (BEAKER) (test code = 413) COMPREHENSIVE METABOLIC [id number] 02:27:26 Test Item Value Reference Range Interpretation Comments TOTAL PROTEIN 5.7 gm/dL 6.0-8.3 L (BEAKER) (test code = 770) ALBUMIN (BEAKER) 2.5 g/dL 3.5-5.0 L (test code = 1145) ALKALINE PHOSPHATASE 108 U/L 40-150 (BEAKER) (test code = 346) BILIRUBIN TOTAL 1.4 mg/dL 0.2-1.2 H (BEAKER) (test code = 377) SODIUM (BEAKER) (test 131 meq/L 136-145 L code = 381) POTASSIUM (BEAKER) 3.0 meq/L 3.5-5.1 L (test code = 379) CHLORIDE (BEAKER) 98 meq/L 98-107 (test code = 382) CO2 (BEAKER) (test 22 meq/L 22-29 code = 355) BLOOD UREA NITROGEN 31 mg/dL 7-21 H (BEAKER) (test code = 354) CREATININE (BEAKER) 0.94 mg/dL 0.57-1.25 (test code = 358) GLUCOSE RANDOM 106 mg/dL 70-105 H (BEAKER) (test code = 652) CALCIUM (BEAKER) 7.3 mg/dL 8.4-10.2 L (test code = 697) AST (SGOT) (BEAKER) 241 U/L 5-34 H (test code = 353) ALT (SGPT) (BEAKER) 73 U/L 6-55 H (test code = 347) EGFR (BEAKER) (test 102 ESTIMATE D GFR IS code = 1092) mL/min/1.73 sq NOT ACCURA TE m CREATININE CLEARANCE IN PREDICTING GLOMERULAR FILTRATION RATE . ESTIMATED GFR I S NOT APPLICABLE FOR DIALYSIS PATIEN TS. Filler Block Inserter Remover ID - ALVINA [id number] 02:26:17 Test Item Value Reference Range Interpretation Comments TRIGLYCERIDES (BEAKER) (test code = 175 mg/dL 540) TRIGLYCERIDE REFERENCE RANGELow Risk <150Borderline Risk 150-199High Risk 200-499Very High Risk>=500Operator ID - ALVINA [id number] 02:26:16 Test Item Value Reference Range Interpretation Comments MAGNESIUM (BEAKER) (test code = 2.2 mg/dL 1.6-2.6 627) Filler Block Inserter Remover ID - ALVINA MPROTHROMBIN TIME/[id number] 02:13:14 Test Item Value Reference Range Interpretation Comments PROTIME (BEAKER) 26.7 seconds 11.9-14.2 H (test code = 759) INR (BEAKER) (test 2.49 See_Comment [Automat ed message] code = 370) The system [employer] generated this result transmitted ref erence range: <=5.90. The reference range was not used to int erpret this result as normal/abnormal . RECOMMENDED COUMADIN/WARFARIN INR THERAPY RANGESSTANDARD DOSE: 2.0 - 3.0 Includes: PROPHYLAXIS forvenous thrombosis, systemic embolization; TREATMENT for venous thrombosis and/or pulmonary embolus.HIGH RISK: Target INR is 2.5-3.5 for patients with mechanical heart valves.
== END 2021-12-07 11:07 | disposition short-term general hospital (02) ==
LOC: ER 18:58
DX: R18.8 Other ascites (principal); I10 Essential (primary) hypertension; F31.9 Bipolar disorder, unspecified; Z86.73 Personal history of transient ischemic attack (TIA), and cerebral infarction without residual deficits; Z20.822 Contact with and (suspected) exposure to COVID-19
CPT/HCPCS: 85025; 36415; 82565; 83690; 80053; 87804 ×2; 74177; U0003; Q9967; J2543; J2405; 87040; J7030

== ENCOUNTER 2022-01-24 21:05 | Emergency (ER) | payer OTHER ==
--- OUTSIDE RECORDS SUMMARY | 2022-01-24 21:28 | XMS REPORT | Continuity of Care Document ---
:2000 Author Organization [facility] t Address [address] [place] [address] Care Team Providers Name Role Phone Stefany Crabtree MD Attending Clinician WILLARD CROUCH EMILE Attending Clinician Unavailable [id number] Attending Clinician Unavailable BETHANY DURHAM Attending Clinician Unavailable Khushi Ozuna MD Attending Clinician [phone] Bethany Durham MD Attending Clinician Melissa Leung MD Attending Clinician Suhail Man MD Attending Clinician [phone] KHUSHI OZUNA Attending Clinician Unavailable Willard Crouch Attending Clinician Unavailable Amado Goyal MD Attending Clinician AMADO GOYAL Attending Clinician Unavailable DOUG JOSHI Attending Clinician Unavailable KIMMY NUNN Attending Clinician Unavailable SUHAIL MAN Attending Clinician Unavailable Kimmy Nunn MD Attending Clinician Cy Correia MD Attending Clinician Kathy Fernandez MD Attending Clinician [phone] Aravind Harley MD Attending Clinician Vicki MANUEL, Ary Hargrove Attending Clinician [phone] MANA DOW Attending Clinician Unavailable IRINA BENITEZ Attending Clinician Unavailable Victor M MANUEL, Mana Mireles Attending Clinician Mervin MANUEL, Vernell Hunt Attending Clinician [phone] Gabriel MANUEL, Nilsa Graham Attending Clinician Galo MANUEL, Shama Angulo Attending Clinician Maura MANUEL, Rose Hardy Attending Clinician Karen MANUEL, Oren Attending Clinician Alisa MANUEL, Rebecca Smith Attending Clinician Eli MANUEL, Irina Attending Clinician BEAR OSPINA Attending Clinician Unavailable WILLARD CROUCH EMILE Admitting Clinician Unavailable [id number] Admitting Clinician Unavailable BETHANY DURHAM Admitting Clinician Unavailable KNOW, DOES_NOT Admitting Clinician Unavailable CY CORREIA Admitting Clinician Unavailable VERNELL GONZALEZ Admitting Clinician Unavailable Payers Payer Name Policy Type Policy Number Effective Date Expiration Date S jonh CIG CIG [id number] [facility] [id number] GENERIC-CIGNA - [id number] 2021 2021 CIGNA 00:00:00 00:00:00 [facility] [id number] [facility]-MEDICAID - [id number] MEDICAID MEDICAID [place] [id number] Problems Condition Condition Condition Status Onset Resolution Last Treating Co mments Source Name Details Category Date Date Treatment Clinician Date Intra-abdo Intra-abdo Disease Active [facility] modesta modesta 7-21 [facility] abscess abscess 00:00: Medical 00 Center Necrotizin Necrotizin Disease Active [facility] 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 5-12 [facility] pancreatit pancreatit 00:00: Me dical is is 00 Center Severe Severe Disease Active [facility] protein-ca protein-ca 4-15 Jessica kes tracycamille molina 00:00: Medical malnutriti malnutriti 00 Ce nter on (Gorman: on (Gorman: less than less than 60% of 60% of standard standard weight) weight) Elevated Elevated Disease [facility] fer[facility] fer[facility] 08[facility]30 [facility] (>16k) (>16k) 00:00: Medical 00 [place] Pancytopen Pancytopen Disease Active [facility] ia ia 08-30 [facility] 00:00: Medical 00 [place] Pre-diabet Pre-diabet Disease Active [facility] es es 08-26 [facility] 00:00: Medical 00 [place] Hx of TIA Hx of TIA Disease Active [facility] (transient (transient 08-26 kes ischemic ischemic 00:00: Medica l attack) attack) 00 Center and stroke and stroke Rheumatoid Rheumatoid Disease Active [facility] arthritis arthritis 08-26 [facility] involving involving 00:00: Medi doreen multiple multiple 00 Center sites sites Acute Acute Disease Active [facility] biliary biliary 08-25 [facility] pancreatit pancreatit 00:00: Me dical is is 00 Center Hyperbilir Hyperbilir Disease Active [facility] ubinemia ubinemia 08-25 [facility] 00:00: Medical 00 [place] Elevated Elevated Disease Active [facility] LFTs LFTs 08-25kes 00:00: Medical 00 [place] SLE SLE Disease Active [facility] (systemic (systemic 08-25 [facility] 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:00: Medical erythemato erythemato 00 Ce nter margot margot related related syndrome) syndrome) Bipolar Bipolar Disease Active [facility] disorder disorder 08-25 [facility] 00:00: Medical 00 [place] Essential Essential Disease Active [facility] hypertensi hypertensi 08-25 Jessica kes on on 00:00: Medical 00 Center Allergies, Adverse Reactions, Alerts Allergy Allergy Status Severity Reaction(s) Onset Inactive Treating Comm ents Source Name Type Date Date Clinician NO KNOWN Allergy Active [facility] Family History Family Member Diagnosis Comments Start Date Stop Date Source Natural father Drug abuse [facility] Natural mother Drug abuse [facility] Social History Social Habit Start Date Stop Date Quantity Comments Source History SDOH [facility] Alcohol intake 2021-12-11 2021-12-11 Ex-drinker [facility] J[facility] es 00:00:00 00:00:00 (finding) [facility] Tobacco use and 2021-12-08 2021-12-[address] [facility] exposure 00:00:00 00:00:00 Medical Center History [facility] 2021-12-08 2021-12-[address] [facility] Transport Med 00:00:00 00:00:[address] History [facility] 2021-12-08 2021-12-[address] [facility] Housing Unable to 00:00:00 00:00:00 Medical Center Pay History [facility] 2021-12-08 2021-12-[address] [facility] Housing Homeless 00:00:00 00:00:00 Medical Center Last Year History [facility] 2021-08-26 2021-08-[address] [facility] Housing Places 00:00:00 00:00:00 Medical Ce nter Lived Sex Assigned At [address] Jessica kes 00:00:00 00:00:00 [facility] Smoking Status Start Date Stop Date Source Former smoker 2021-12-08 00:00:00 2021-12-08 00:00:00 [facility] Medications Ordered Filled Start Stop Current Ordering Indication Dosage Frequency Signature Comments Components Source Medication Medication Date Date Medication? Clinician (SIG) Name Name mycophenola 2021- Yes 500mg Q.5D Take [address] [facility] 01-03 tablet [facility] (CELLCEPT) 00:00: 23:59 (500 mg Med ical 500 mg 00 :00 total) by Center tablet mouth 2 (two) times daily for 30 days. predniSONE 2021- Yes Take [address] [facility] (DELTASONE) 12-26 tablets Luke s 5 MG tablet 00:00: 23:59 (25 mg Med ical 00 :00 total) by Center mouth daily for 4 days, THEN 4 tablets (20 mg total) daily for 30 days. DAPTOmycin 2021- No 800mg Q24H Inject [address] (CUBICIN) 12-2616 mg [facility] in sodium 00:00: 23:59 intravenou M edical chloride 00 :00 sly daily Center () for 7 NON-DEHP 50 days. ML IVPB ertapenem 2021- No 1g Q24H Inject [address] (INVanz) 1 12-26 08-16 intravenou Jessica kes g in NS 100 00:00: 23:59 sly daily Medical mL (V2B) 00 :00 for 7 Center IVPB days. mICAFUNGin 2021- No 100mg Q24H Inject [address] 100 mg in 12-26-16 mg [facility] NS 0.9% 100 00:00: 23:59 intravenou Medical mL (V2B) 00 :00 sly daily Center IVPB for 7 days. predniSONE 2021- No 25mg QD Take [address] (DELTASONE) 12-26 08-08 tablets Luke s 5 MG tablet 00:00: 00:00 (25 mg Med ical 00 :00 total) by Center mouth daily for 30 days. risperiDONE Yes .5mg QD Take 0.[address] (RisperDAL) 8-08 mg by [facility] 0.5 MG 23:36: mouth Medical tablet 04 daily. [place] metFORMIN Yes 500mg Take [address] [facility] (GLUCOPHAGE 8-08 mg by [facility] ) 500 MG 23:36: mouth 2 Medica l tablet 04 (two) Center times daily with breakfast and dinner. traZODone Yes 100mg QD Take [address] (DESYREL) 8-08 mg by [facility] 100 MG 23:36: mouth Medical tablet 04 nightly. [place] enoxaparin Yes 40mg QD Inject [address] (LOVENOX) 8-08 mg [facility] 40 mg/0.4 23:36: subcutaneo Me dical mL Syrg 04 usly Center daily. predniSONE 2021- No 50mg QD Take [address] (DELTASONE) 8 08-08 by mouth Jody es 50 MG 16:30: 00:00 daily. Medical tablet 18 :00 Center HYDROcodone Yes 1{tbl} Take [address] -acetaminop 8-08 tablet by Jody es hen (NORCO 00:00: mouth Medica l 5-325) 00 every 6 Center 5-325 mg (six) per tablet hours as needed for Pain for up to 10 doses. Max Daily Amount: 4 tablets sulfamethox Yes 160mg{t Q.[id number] Take [address] azole-trime 10-11 rimetho [id number] tablet [facility] thoprim 00:00: prim} 3W (160 mg of Med ical (BACTRIM 00 trimethopr Cente r DS) 800-160 im total) mg per by mouth 3 tablet (three) times a week SAT/SAT/ I. levoFLOXaci 2021- No 750mg QD Take [address] n 10-10 tablet [facility] (LEVAQUIN) 00:00: 00:00 (750 mg Med ical 750 MG 00 :00 total) by Center tablet mouth daily. metroNIDAZO 2021- No 500mg Q.[id number] Take [address] LE (FLAGYL) 10-10 [id number] tablet [facility] 500 MG 00:00: 00:00 3D (500 mg Medical tablet 00 :00 total) by Center mouth 3 (three) times daily. predniSONE 2021- No 50mg QD Take [address] (DELTASONE) 10-10 tablet (50 L ukes 50 MG 00:00: 23:59 mg total) Medica l tablet 00 :00 by mouth Center daily for 30 days. methocarbam 2021- No 1000mg Q.25D Take [address] oL 10-10 tablets [facility] (ROBAXIN) 00:00: 23:59 (1,000 mg Me dical 500 MG 00 :00 total) by Center tablet mouth 4 (four) times daily for 10 days. LORazepam 2021- No .5mg Take 1 [facility] (ATIVAN) 10-10 tablet [facility] 0.5 MG 00:00: 23:59 (0.5 mg Medical tablet 00 :00 total) by Center mouth 2 (two) times daily as needed for Anxiety for up to 10 days. Max Daily Amount: 1 mg morphine 2021- No 15mg Take [address] (MSIR) 15 5-24 06-03 tablet (15 Jody es MG tablet 00:00: 23:59 mg total) Me dical 00 :00 by mouth Center every 4 (four) hours as needed for up to 10 days. Max Daily Amount: 90 mg sulfamethox 2021- No 160mg{t Q.[id number] Take [address] azole-trime 09-25 rimetho [id number] tablet [facility] thoprim 00:00: 00:00 prim} 3W (160 mg of Me dical (BACTRIM 00 :00 trimethopr Cente r DS) 800-160 im total) mg per by mouth 3 tablet (three) times a week MON/SAT/ I. pantoprazol Yes 40mg QD Take [address] [facility] [facility] e 09-23 tablet (40 [facility] (PROTONIX) 00:00: mg total) Me dical 40 MG 00 by mouth Center tablet daily. sertraline 2022- No 50mg QD Take [address] (ZOLOFT) 50 09-23 tablet (50 L ukes MG tablet 00:00: 23:59 mg total) Me dical 00 :00 by mouth Center daily. predniSONE 2021- No 80mg QD Take [address] (DELTASONE) 09-23- tablets Luke s 20 MG 00:00: 00:00 (80 mg Medical tablet 00 :00 total) by Center mouth daily for 10 days. furosemide 2021- No 40mg QD Take [address] [facility] (LASIX) 40 09-23 tablet (40 Jessica kes MG tablet 00:00: 00:00 mg total) Me dical 00 :00 by mouth Center daily. insulin NPH 2021- No Use as [facility] (HumuLIN N) 09-23 directed. Jessica kes 100 unit/mL 00:00: 00:00 Medic al injection 00 :00 [place] predniSONE 2021- No 5mg QD Take [address] (DELTASONE) 09-22 by mouth Jody es 5 MG tablet 16:07: 00:00 daily. Med ical 21 :00 [place] CARVEDILOL 2021- No Take by [facility] ORAL 09-22- mouth. [facility] 16:07: 00:00 Medical 21 :00 Center tramadol 2021- No Take by [facility] HCl 09-22- mouth. [facility] (TRAMADOL 16:07: 00:00 Medical ORAL) 21 :00 Center calcium 2022- No 2{tbl} Q.[id number] Take [address] carbonate-v 09-22- [id number] tablets by Jarad itamin D3 00:00: 23:59 3D mouth 3 Medi doreen (OSCAL-D) 00 :00 (three) Center 500 times mg(1,250mg) daily. -200 unit per tablet cholestyram 2022- No 1{packe Q.5D Take [address] ine 09-22 t} packet by Jarad (QUESTRAN) 00:00: 23:59 mouth 2 Med ical 4 gram PwPk 00 :00 (two) Center packet times daily. clotrimazol 2022- No Q.5D Apply [facility] e 09-22- topically [facility] (LOTRIMIN) 00:00: 23:59 2 (two) Med ical 1 % cream 00 :00 times Center daily. gabapentin 2022- No 400mg Q.[id number] Take [address] (NEURONTIN) 09-22 [id number] capsule [facility] 400 MG 00:00: 23:59 3D (400 mg Medical capsule 00 :00 total) by Center mouth 3 (three) times daily. hydrOXYchlo 2022- No 200mg Q.5D Take [address] roQUINE 09-22- tablet [facility] (PLAQUENIL) 00:00: 23:59 (200 mg Me dical 200 mg 00 :00 total) by Center tablet mouth 2 (two) times daily. metoprolol 2022- No 25mg Q.5D Take [address] tartrate 09-22- tablet (25 Luke s (LOPRESSOR) 00:00: 23:59 mg total) Medical 25 MG 00 :00 by mouth 2 Center tablet (two) times daily. pancrelipas 2022- No 31039G{ Take [address] e, 09-22 lipase} capsules [facility] Lip-Prot-Am 00:00: 23:59 (72,000 Me dical yl, (CREON) 00 :00 units of Cent er 24,000-76,0 lipase 00 -120,000 total) by unit CpDR mouth 3 capsule (three) times daily with meals. acetaminoph 2022- No 650mg Take [address] en 09-22 tablets [facility] (TYLENOL) 00:00: 23:59 (650 mg Medi doreen 325 MG 00 :00 total) by Center tablet mouth every 6 (six) hours as needed for up to 360 days. morphine No 15mg Take [address] [facility] (MS CONTIN) 09-22 tablet (15 L ukes 15 MG 12 hr 00:00: 23:59 mg total) Medical tablet 00 :00 by mouth Center every 8 (eight) hours for 30 days. Max Daily Amount: 45 mg insulin NPH No Use as [facility] (HumuLIN N) 09-22 directed. Jessica kes 100 unit/mL 00:00: 00:00 Medic al injection 00 :00 Center loperamide 2021- No 4mg Q.[id number] Take [address] (IMODIUM) 2 09-22 [id number] capsules [facility] mg capsule 00:00: 00:00 3D (4 mg Medic al 00 :00 total) by Center mouth 3 (three) times daily for 10 days. LORazepam 2021- No .5mg Take 1 [facility] (ATIVAN) 09-22 tablet [facility] 0.5 MG 00:00: 00:00 (0.5 mg Medical tablet 00 :00 total) by Center mouth 2 (two) times daily as needed for Anxiety for up to 10 days. Max Daily Amount: 1 mg methocarbam 2021- No 1000mg Q.25D Take [address] oL 09-22 tablets [facility] (ROBAXIN) 00:00: 00:00 (1,000 mg Me dical 500 MG 00 :00 total) by Center tablet mouth 4 (four) times daily for 10 days. oxyCODONE 2021- No 10mg Take 1 [facility] (OXY-IR) 10 09-22 tablet (10 L ukes mg tablet 00:00: 00:00 mg total) Me dical 00 :00 by mouth Center every 4 (four) hours as needed for up to 10 days. Max Daily Amount: 60 mg simethicone 2021- No 80mg Q.25D Take [address] (MYLICON) 09-22 tablet (80 Jody es 80 MG 00:00: 00:00 mg total) Medica l chewable 00 :00 by mouth 4 Cente r tablet (four) times daily for 10 days. Vital Signs Vital Name Observation Time Observation [...] 89.041 kg WEIGHT 2021-08-26 16:00:00 95.845 kg Systolic blood 2021-12-25 15:25:00 123 mm[Hg] [facility] Diastolic blood 2021-12-25 15:25:00 76 mm[Hg] [facility] Heart rate 2021-12-25 15:25:00 103 /min [facility] Body temperature 2021-12-25 15:25:00 36.78 Lori [facility] Respiratory rate 2021-12-25 15:25:00 18 /min [facility] Oxygen saturation in 2021-12-25 15:25:00 95 /min [facility] Arterial blood by Medical Ce nter Pulse oximetry Body height 2021-12-07 12:30:00 172.7 cm [facility] Body weight 2021-12-07 12:30:00 95.255 kg [facility] BMI 2021-12-07 12:30:00 31.93 kg/m2 [facility] Procedures Procedure Date / Time Performing Clinician Source Performed BASIC METABOLIC PANEL (7) 2021-12-25 04:08:00 [facility] CBC W/PLT COUNT & AUTO 2021-12-25 04:08:00 Alex Hernández [facility] CBC W/PLT COUNT & AUTO 2021-12-25 04:08:00 Alex Hernández [facility] SARS-COV2/RT-PCR (HS & REF 2021-12-24 16:21:00 MarcMelissa [facility] BASIC METABOLIC PANEL (7) 2021-12-24 03:16:00 [facility] CBC W/PLT COUNT & AUTO 2021-12-24 03:16:00 Alex Hernández [facility] CBC W/PLT COUNT & AUTO 2021-12-24 03:16:00 Alex Hernández C [facility] BASIC METABOLIC PANEL (7) 2021-12-23 03:08:00 AriMelissa whiting [facility] CBC W/PLT COUNT & AUTO 2021-12-23 03:08:00 EdgarAlex alvarez C [facility] CBC W/PLT COUNT & AUTO 2021-12-23 03:08:00 Alex Hernández Kenroy [facility] BASIC METABOLIC PANEL (7) 2021-12-22 03:56:00 [facility] CBC W/PLT COUNT & AUTO 2021-12-22 03:56:00 EdgarAlex Yolanda Jasmine [facility] COMPLEMENT COMPONENT C3 2021-12-22 03:56:00 Mona Bustamante [facility] CBC W/PLT COUNT & AUTO 2021-12-22 03:56:00 EdgarAlex Yolanda Jasmine [facility] BASIC METABOLIC PANEL (7) 2021-12-21 05:21:00 [facility] CBC W/PLT COUNT & AUTO 2021-12-21 05:21:00 EdgarAlex alvarez Yolanda Jasmine [facility] CBC W/PLT COUNT & AUTO 2021-12-21 05:21:00 EdgarAlex alvarez Kenroy [facility] CT ABDOMEN/PELVIS WITH IV 2021-12-20 06:25:00 Suhail Man [facility] CONTRAST [facility] BASIC METABOLIC PANEL (7) 2021-12-20 04:59:00 Arif [facility]ishaan [facility] MAGNESIUM 2021-12-20 04:59:00 ArifMelissa [facility] CBC W/PLT COUNT & AUTO 2021-12-20 04:59:00 EdgarAlex alvarez [facility] CBC W/PLT COUNT & AUTO 2021-12-20 04:59:00 Alex Hernández Post Kenroy [facility] BASIC METABOLIC PANEL (7) 2021-12-19 04:42:00 [facility] MAGNESIUM 2021-12-19 04:42:00 [facility] CBC W/PLT COUNT & AUTO 2021-12-19 04:42:00 Alex Hernández [facility] CBC W/PLT COUNT & AUTO 2021-12-19 04:42:00 Alex Hernández [facility] BASIC METABOLIC PANEL (7) 2021-12-18 04:10:00 [facility] MAGNESIUM 2021-12-18 04:10:00 [facility] CBC W/PLT COUNT & AUTO 2021-12-18 04:10:00 Alex Hernández [facility] CBC W/PLT COUNT & AUTO 2021-12-18 04:10:00 Alex Hernández [facility] SARS-COV2/RT-PCR ([facility] & REF 2021-12-17 13:09:00 [facility] BASIC METABOLIC PANEL (7) 2021-12-17 05:40:00 [facility] MAGNESIUM 2021-12-17 05:40:00 [facility] CBC W/PLT COUNT & AUTO 2021-12-17 05:40:00 Alex Hernández [facility] CREATINE KINASE (CK) 2021-12-17 05:40:00 Alex Hernández [facility] CBC W/PLT COUNT & AUTO 2021-12-17 05:40:00 Alex Hernández [facility] BASIC METABOLIC PANEL (7) 2021-12-16 04:54:00 [facility] MAGNESIUM 2021-12-16 04:54:00 [facility] HEPATIC FUNCTION PANEL 2021-12-16 04:54:00 Alex Hernández [facility] CBC W/PLT COUNT & AUTO 2021-12-16 04:54:00 Alex Hernández [facility] CBC W/PLT COUNT & AUTO 2021-12-16 04:54:00 Alex Hernández [facility] MAGNESIUM 2021-12-15 12:00:00 [facility] BASIC METABOLIC PANEL (7) 2021-12-15 12:00:00 [facility] CBC (HEMOGRAM ONLY) 2021-12-15 12:00:00 Alex Hernández [facility] XR CHEST 1 VIEW PORTABLE / 2021-12-15 10:17:00 Suhail Man [facility] BEDSIDE [facility] MAGNESIUM 2021-12-15 05:49:[address] [facility] [address] ABDOMEN/PELVIS WITH IV 2021-12-14 10:05:00 Cheryl Martinez [facility] CBC W/PLT COUNT & AUTO 2021-12-14 05:39:00 [facility] CBC W/PLT COUNT & AUTO 2021-12-14 05:39:00 [facility] POCT-GLUCOSE METER 2021-12-13 07:29:00 [facility] BASIC METABOLIC PANEL (7) 2021-12-13 07:06:00 [facility] MAGNESIUM 2021-12-13 07:06:00 [facility] WOUND CULTURE + GRAM STAIN 2021-12-12 18:11:00 Melissa Leung [facility] CBC W/PLT COUNT & AUTO 2021-12-12 06:12:00 [facility] BASIC METABOLIC PANEL (7) 2021-12-12 06:12:00 [facility] MAGNESIUM 2021-12-12 06:12:00 [facility] CBC W/PLT COUNT & AUTO 2021-12-12 06:12:[address] [facility] [address] DRAINAGE W CATH PLACEMENT 2021-12-11 18:10:00 [facility] BASIC METABOLIC PANEL (7) 2021-12-11 05:56:00 [facility] MAGNESIUM 2021-12-11 05:56:[address] [facility] [address] ABDOMEN/PELVIS WITH IV 2021-12-10 13:21:00 Cheryl Martinez [facility] SARS-COV2/RT-PCR ([facility] & REF 2021-12-10 12:34:00 [facility] CBC W/PLT COUNT & AUTO 2021-12-10 05:35:00 [facility] BASIC METABOLIC PANEL (7) 2021-12-10 05:35:00 [facility] MAGNESIUM 2021-12-10 05:35:00 [facility] CBC W/PLT COUNT & AUTO 2021-12-10 05:35:00 [facility] MISCELLANEOUS LAB ORDER 2021-12-09 17:08:00 Kimberley Simon [facility] BASIC METABOLIC PANEL (7) 2021-12-09 04:11:00 [facility] MAGNESIUM 2021-12-09 04:11:00 [facility] DOUBLE-STRANDED DNA (DSDNA) 2021-12-09 04:11:00 [facility] ANTIBODY [facility] COMPLEMENT COMPONENT C3 2021-12-09 04:11:00 [facility] PROTHROMBIN TIME/INR 2021-12-09 04:11:00 [facility] ANTI-DNA TITER 2021-12-09 04:11:00 [facility] URINALYSIS W/ MICROSCOPIC 2021-12-08 22:19:00 Robby, [facility] PROTEIN, RANDOM URINE 2021-12-08 22:18:00 Robby, [facility] CREATININE, RANDOM URINE 2021-12-08 22:18:00 Mona Busatmante [facility] POCT-GLUCOSE METER 2021-12-08 10:20:00 Melsisa Leung [facility] BASIC METABOLIC PANEL (7) 2021-12-08 05:32:00 Adio, [facility] HEPATIC FUNCTION PANEL 2021-12-08 05:32:00 Adio, [facility] LIPID PANEL 2021-12-08 05:32:00 Adio, [facility] MAGNESIUM 2021-12-08 05:32:00 Adio, [facility] PHOSPHORUS 2021-12-08 05:32:00 Adio, [facility] CBC W/PLT COUNT & AUTO 2021-12-08 05:32:00 Adio, [facility] HEMOGLOBIN A1C 2021-12-08 05:32:00 Adio, [facility] CBC W/PLT COUNT & AUTO 2021-12-08 05:32:00 Marva, [facility] BLOOD CULTURE 2021-12-07 14:13:00 Laith [facility] POCT-GLUCOSE METER 2021-12-07 13:44:00 Laith [facility] CBC W/PLT COUNT & AUTO 2021-12-07 13:39:00 Laith [facility] LACTIC ACID, VENOUS 2021-12-07 13:39:00 Laith [facility] COMPREHENSIVE METABOLIC 2021-12-07 13:39:00 Laith [facility] PROTHROMBIN TIME/INR 2021-12-07 13:39:00 Laith [facility] APTT 2021-12-07 13:39:00 Laith [facility] LIPASE 2021-12-07 13:39:00 Ozuna Khushi [facility] CBC W/PLT COUNT & AUTO 2021-12-07 13:39:00 Laith [facility] BUN/CREATININE RATIO W/EGFR 2021-10-19 13:53:50 [facility] POCT-GLUCOSE METER 2021-10-10 11:51:00 MagdaAliceashvin [facility] POCT-GLUCOSE METER 2021-10-10 07:14:00 Kaitlyn Manjagdeepashvin [facility] BASIC METABOLIC PANEL (7) 2021-10-10 05:42:00 Reese Ma [facility] HEPATIC FUNCTION PANEL 2021-10-10 05:42:00 Martine Ma [facility] MAGNESIUM 2021-10-10 05:42:00 Martine Ma [facility] PHOSPHORUS 2021-10-10 05:42:00 Martine Ma [facility] CBC W/PLT COUNT & AUTO 2021-10-10 05:42:00 Magda jagdeepashvin [facility] CBC W/PLT COUNT & AUTO 2021-10-10 05:42:00 Magda jagdeepashvin [facility] POCT-GLUCOSE METER 2021-10-09 21:53:00 Kaitlyn Manjagdeepashvin [facility] POCT-GLUCOSE METER 2021-10-09 16:39:00 Magda Aliceashvin [facility] POCT-GLUCOSE METER 2021-10-09 11:35:00 [facility] BASIC METABOLIC PANEL (7) 2021-10-09 11:05:00 Reese Ma [facility] HEPATIC FUNCTION PANEL 2021-10-09 11:05:00 Martine Ma [facility] MAGNESIUM 2021-10-09 11:05:00 Martine Ma [facility] PHOSPHORUS 2021-10-09 11:05:00 Martine Ma [facility] CBC W/PLT COUNT & AUTO 2021-10-09 11:05:00 [facility]ella [facility] DIFFERENTIAL [facility] CBC W/PLT COUNT & AUTO 2021-10-09 11:05:00 Arabella [facility] POCT-GLUCOSE METER 2021-10-09 09:25:00 [facility] POCT-GLUCOSE METER 2021-10-08 20:30:00 [facility] SARS-COV2/RT-PCR ([facility] & REF 2021-10-08 19:22:00 Martine Ma [facility] POCT-GLUCOSE METER 2021-10-08 17:32[facility] 2021-10-08 [facility] POCT-GLUCOSE METER 2021-10-08 08:40:00 Laurencemomo [facility] BASIC METABOLIC PANEL (7) 2021-10-08 04:39:00 Reese Ma [facility] HEPATIC FUNCTION PANEL 2021-10-08 04:39:00 Martine Ma [facility] MAGNESIUM 2021-10-08 04:39:00 Martine Ma [facility] PHOSPHORUS 2021-10-08 04:39:00 Martine Ma [facility] CBC W/PLT COUNT & AUTO 2021-10-08 04:39:00 Magda [facility] DIFFERENTIAL [facility] CBC W/PLT COUNT & AUTO 2021-10-08 04:39:00 Arabella [facility] POCT-GLUCOSE METER 2021-10-07 21:29:00 Suhail Man [facility] POCT-GLUCOSE METER 2021-10-07 16:23:00 Suhail Man [facility] POCT-GLUCOSE METER 2021-10-07 10:54:00 Suhail Man [facility] POCT-GLUCOSE METER 2021-10-07 07:37:00 Suhail Man [facility] PHOSPHORUS 2021-10-07 04:03:00 Martine Ma [facility] BASIC METABOLIC PANEL (7) 2021-10-07 04:03:00 Reese Ma [facility] HEPATIC FUNCTION PANEL 2021-10-07 04:03:00 Martine Ma [facility] MAGNESIUM 2021-10-07 04:03:00 Martine Ma [facility] POCT-GLUCOSE METER 2021-10-06 21:21:00 Suhail Man [facility] POCT-GLUCOSE METER 2021-10-06 16:37:00 Suhail Man [facility] POCT-GLUCOSE METER 2021-10-06 12:35:00 LaurencemomoSuhail trivedi [facility] BASIC METABOLIC PANEL (7) 2021-10-06 05:03:00 Reese Ma [facility] HEPATIC FUNCTION PANEL 2021-10-06 05:03:00 Martine Ma [facility] MAGNESIUM 2021-10-06 05:03:00 Martine Ma [facility] PHOSPHORUS 2021-10-06 05:03:00 Martine Ma [facility] CBC W/PLT COUNT & AUTO 2021-10-06 05:03:00 Rebecca Kathy [facility] CBC W/PLT COUNT & AUTO 2021-10-06 05:03:00 Kathy Fernandez [facility] POCT-GLUCOSE METER 2021-10-05 21:08:00 [facility] POCT-GLUCOSE METER 2021-10-05 16:19:00 [facility] POCT-GLUCOSE METER 2021-10-05 11:23:00 [facility] POCT-GLUCOSE METER 2021-10-05 07:50:00 [facility] BASIC METABOLIC PANEL (7) 2021-10-05 06:03:00 Reese Ma [facility] HEPATIC FUNCTION PANEL 2021-10-05 06:03:00 Martine Ma [facility] MAGNESIUM 2021-10-05 06:03:00 Martine Ma [facility] PHOSPHORUS 2021-10-05 06:03:00 Martine Ma [facility] CBC W/PLT COUNT & AUTO 2021-10-05 06:03:00 [facility] CBC W/PLT COUNT & AUTO 2021-10-05 06:03:00 [facility] SARS-COV2/RT-PCR ([facility] & REF 2021-10-05 05:55:00 Martine Ma [facility] POCT-GLUCOSE METER 2021-10-04 21:11:00 [facility] POCT-GLUCOSE METER 2021-10-04 17:22:00 [facility] POCT-GLUCOSE METER 2021-10-04 11:19:00 [facility] BASIC METABOLIC PANEL (7) 2021-10-04 05:54:00 Reese Ma [facility] HEPATIC FUNCTION PANEL 2021-10-04 05:54:00 Martine Ma [facility] MAGNESIUM 2021-10-04 05:54:00 Martine Ma [facility] PHOSPHORUS 2021-10-04 05:54:00 Martine Ma [facility] CBC W/PLT COUNT & AUTO 2021-10-04 05:54:00 Rebecca [facility] CBC W/PLT COUNT & AUTO 2021-10-04 05:54:00 [facility] POCT-GLUCOSE METER 2021-10-03 16:36:00 [facility] POCT-GLUCOSE METER 2021-10-03 11:34:00 [facility] POCT-GLUCOSE METER 2021-10-03 04:57:00 [facility] BASIC METABOLIC PANEL (7) 2021-10-03 04:52:00 Reese Ma [facility] HEPATIC FUNCTION PANEL 2021-10-03 04:52:00 Francesca [facility] MAGNESIUM 2021-10-03 04:52:00 [facility] CBC (HEMOGRAM ONLY) 2021-10-03 04:52:00 Carmen Knapp [facility] PHOSPHORUS 2021-10-03 04:52:00 [facility] BASIC METABOLIC PANEL (7) 2021-10-02 20:40:00 Triny Leary [facility] CBC (HEMOGRAM ONLY) 2021-10-02 20:40:00 Triny Leary [facility] MAGNESIUM 2021-10-02 20:40:00 Triny Leary [facility] PHOSPHORUS 2021-10-02 20:40:00 Triny Leary [facility] POCT-GLUCOSE METER 2021-10-02 19:37:00 [facility] RRL CRITICAL LABS 2021-10-02 17:55:12 Amado Goyal [facility] es (ABG,NA,K,H&H,GLUCOSE) [facility] enter CALCIUM, IONIZED 2021-10-02 17:55:12 [facility] BLOOD GAS, ARTERIAL 2021-10-02 17:55:12 Lissette, [facility] SODIUM NA-STAT LAB 2021-10-02 17:55:12 Lissette, [facility] POTASSIUM-STAT LAB 2021-10-02 17:55:12 Lissette, [facility] GLUCOSE-STAT LAB 2021-10-02 17:55:12 Lissette, [facility] HGB/HCT (H&H) - STAT LAB 2021-10-02 17:55:12 [facility] FUNGUS CULTURE + SMEAR 2021-10-02 17:47:00 [facility] SURGICALLY OBTAINED CULTURE 2021-10-02 17:47:00 [facility] + GRAM STAIN [facility] ANAEROBIC CULTURE 2021-10-02 17:47:00 [facility] AFB CULTURE + SMEAR 2021-10-02 17:47:00 [facility] (NON-SPUTUM) [facility] WASHOUT, ABDOMINAL CAVITY 2021-10-02 16:47:00 [facility] POCT-GLUCOSE METER 2021-10-02 15:51:00 [facility] VANCOMYCIN LEVEL, TROUGH 2021-10-02 13:39:00 Charmaine Contreras [facility] POCT-GLUCOSE METER 2021-10-02 10:50:00 [facility] POCT-GLUCOSE METER 2021-10-02 07:17:00 [facility] BASIC METABOLIC PANEL (7) 2021-10-02 05:48:00 Reese Ma [facility] HEPATIC FUNCTION PANEL 2021-10-02 05:48:00 Martine Ma [facility] MAGNESIUM 2021-10-02 05:48:00 [facility] (HEMOGRAM ONLY) 2021-10-02 05:48:00 Carmen Knapp [facility] PHOSPHORUS 2021-10-02 05:48:00 [facility] POCT-GLUCOSE METER 2021-10-01 21:35:00 [facility] POCT-GLUCOSE METER 2021-10-01 16:42:00 [facility] SARS-COV2/RT-PCR ([facility] & REF 2021-10-01 14:49:00 Francesca [facility] LABS) Medical Center TYPE AND SCREEN, AUTOMATED 2021-10-01 14:48:00 Matty Lacy [facility] POCT-GLUCOSE METER 2021-10-01 12:11:00 [facility] 2D ECHO W/ DOPPLER 2021-10-01 09:32:46 [facility] (CW/PW/COLOR) [facility] ABD/PELVIS - PANCREAS 2021-10-01 07:54:00 Matty Lacy [facility] BASIC METABOLIC PANEL (7) 2021-10-01 04:54:00 Reese Ma hidaphne [facility] HEPATIC FUNCTION PANEL 2021-10-01 04:54:00 Martine Ma [facility] MAGNESIUM 2021-10-01 04:54:00 Martine Ma [facility] CBC (HEMOGRAM ONLY) 2021-10-01 04:54:00 Carmen Knapp [facility] PHOSPHORUS 2021-10-01 04:54:00 Francesca [facility] PREPARE LEUKO-REDUCED RBC 2021-09-30 23:54:00 Carmen Knapp CH, I [facility] POCT-GLUCOSE METER 2021-09-30 22:32:00 RebeccaFormerly [facility] BLOOD CULTURE 2021-09-30 20:24:00 [facility] BLOOD CULTURE 2021-09-30 20:23:00 [facility] POCT-GLUCOSE METER 2021-09-30 17:01:00 [facility] POCT-GLUCOSE METER 2021-09-30 11:33:00 [facility] POCT-GLUCOSE METER 2021-09-30 07:38:00 [facility] DOUBLE-STRANDED DNA (DSDNA) 2021-09-30 05:18:00 [facility] ANTIBODY [facility] ANTI-DNA TITER 2021-09-30 05:18:00 [facility] COMPLEMENT COMPONENT C4 2021-09-30 01:32:00 [facility] VANCOMYCIN LEVEL, TROUGH 2021-09-30 01:31:00 Alex Hernández [facility] BASIC METABOLIC PANEL (7) 2021-09-30 01:31:00 Reese Ma [facility] HEPATIC FUNCTION PANEL 2021-09-30 01:31:00 Martine Ma [facility] MAGNESIUM 2021-09-30 01:31:00 Martine Ma [facility] CBC (HEMOGRAM ONLY) 2021-09-30 01:31:00 Carmen Knapp [facility] PHOSPHORUS 2021-09-30 01:31:00 Martine Ma [facility] PREPARE LEUKO-REDUCED RBC 2021-09-29 23:54:00 Cy Correia [facility] POCT-GLUCOSE METER 2021-09-29 20:44:00 [facility] PROTEIN, RANDOM URINE 2021-09-29 17:45:00 [facility] CREATININE, RANDOM URINE 2021-09-29 17:45:00 Kathy Fernandez CH I [facility] URINALYSIS W/ MICROSCOPIC 2021-09-29 17:45:00 Kathy Fernandez [facility] TRANSFUSE LEUKO-REDUCED RED 2021-09-29 16:31:00 [facility] TRANSF[facility] LEUKO-REDUCED RED 2021-09-29 12:26:00 [facility] POCT-GLUCOSE METER 2021-09-29 08:03:00 Rebecca [facility] BASIC METABOLIC PANEL (7) 2021-09-29 05:09:00 [facility] 2021-09-29 05:09:00 Martine Ma [facility] MAGNESIUM 2021-09-29 05:09:00 Martine Ma [facility] CBC (HEMOGRAM ONLY) 2021-09-29 05:09:00 Carmen Knapp [facility] PHOSPHORUS 2021-09-29 05:09:00 AlexMartine Campoverde [facility] PROTHROMBIN TIME/INR 2021-09-29 05:09:00 [facility] POCT-GLUCOSE METER 2021-09-28 20:39:00 [facility] ECG 12-LEAD 2021-09-28 18:40:16 Unknown, Hl7 [facility] ECG 12-LEAD 2021-09-28 18:40:16 Unknown, Hl7 [facility] XR CHEST 1 VIEW PORTABLE / 2021-09-28 18:22:[address] [facility] HEMOGLOBIN AND HEMATOCRIT 2021-09-28 17:38:00 Kathy Fernandez [facility] CT DRAINAGE ABDOMINAL 2021-09-28 16:51:00 [facility] Kathy [facility] AMYLASE, BODY FLUID 2021-09-28 16:35:00 Bartsch, [facility] BODY FLUID CULTURE + GRAM 2021-09-28 16:34:00 [facility] STAIN [facility] ANAEROBIC CULTURE 2021-09-28 16:34:00 Santoshkelsey Kathy [facility] AMYLASE 2021-09-28 12:17:00 [facility] POCT-GLUCOSE METER 2021-09-28 12:09:00 [facility] TRANSFUSE LEUKO-REDUCED RED 2021-09-28 08:37:00 [facility] Marco Antoniopratibha deleon [facility] BLOOD CELLS [facility] POCT-GLUCOSE METER 2021-09-28 07:47:00 [facility] ABORH, MANUAL 2021-09-28 07:34:00 Josseline Cantu [facility] TYPE AND SCREEN, AUTOMATED 2021-09-28 06:10:00 [facility] BASIC METABOLIC PANEL (7) 2021-09-28 03:59:00 [facility] HEPATIC FUNCTION PANEL 2021-09-28 03:59:00 [facility] PROTHROMBIN TIME/INR 2021-09-28 03:59:00 [facility] MAGNESIUM 2021-09-28 03:59:00 [facility] PHOSPHORUS 2021-09-28 03:59:00 [facility] CBC W/PLT COUNT & AUTO 2021-09-28 03:59:00 [facility] LACTIC ACID, VENOUS 2021-09-28 03:59:00 [facility] CBC W/PLT COUNT & AUTO 2021-09-28 03:59:00 [facility] (CELLAVISION MANUAL DIFF) 2021-09-28 03:59:00 [facility] SARS-COV2/RT-PCR ([facility] & REF 2021-09-28 02:17:00 Martine Ma [facility] LABS) [facility] CT ABDOMEN/PELVIS WITH IV 2021-09-27 23:04:[address] [facility] BLOOD CULTURE 2021-09-27 21:35:00 [facility] BLOOD CULTURE IDENTIFICATION 2021-09-27 21:35:[address] [facility] CBC W/PLT COUNT & AUTO 2021-09-27 21:35:00 Edouard Carmichael Ishaan [facility] COMPREHENSIVE METABOLIC 2021-09-27 21:35:[address] [facility] LIPASE 2021-09-27 21:35:00 [facility] LACTIC ACID, VENOUS 2021-09-27 21:35:[address] [facility] PROTHROMBIN TIME/INR 2021-09-27 21:35:00 Edouard [facility] CBC W/PLT COUNT & AUTO 2021-09-27 21:35:00 Edouard Kimmy R [facility] (CELLAVISION MANUAL DIFF) 2021-09-27 21:35:00 Edouard [facility] XR CHEST 1 VIEW PORTABLE / 2021-09-27 20:27:00 Kimmy Nunn [facility] CRITICAL CARE 2021-09-27 20:07:17 Edouard Kimmy Ishaan [facility] POCT-GLUCOSE METER 2021-09-22 16:25:00 Eli [facility] FECAL LEUKOCYTES 2021-09-22 14:35:00 Edwar Pinto [facility] POCT-GLUCOSE METER 2021-09-22 11:27:00 Eli [facility] POCT-GLUCOSE METER 2021-09-22 07:31:00 Eli [facility] MAGNESIUM 2021-09-22 04:34:00 [place] [facility] BASIC METABOLIC PANEL (7) 2021-09-22 04:34:00 Castillo Narayan [facility] POCT-GLUCOSE METER 2021-09-21 21:58:00 [facility] 2021-09-21 17:14:00 Eli [facility] POCT-GLUCOSE METER 2021-09-21 11:42:00 [facility] POCT-GLUCOSE METER 2021-09-21 07:36:00 [facility] MAG[facility]UM 2021-09-21 04:27:00 Nj [facility] COMPREHENSIVE METABOLIC 2021-09-21 04:27:[address] [facility] CBC W/PLT COUNT & AUTO 2021-09-21 04:27:00 Castillo Narayan [facility] FERRITIN 2021-09-21 04:27:00 Rebecca Cuellar [facility] CBC W/PLT COUNT & AUTO 2021-09-21 04:27:00 Castillo Narayan [facility] POCT-GLUCOSE METER 2021-09-20 22:54:00 Eli [facility] POCT-GLUCOSE METER 2021-09-20 15:43:00 Eli [facility] POCT-GLUCOSE METER 2021-09-20 11:26:00 Eli, [facility] POCT-GLUCOSE METER 2021-09-20 08:00:00 Rebecca Cuellar [facility] MAGNESIUM 2021-09-20 03:44:00 Nj, [facility] COMPREHENSIVE METABOLIC 2021-09-20 03:44:[address] [facility] CBC W/PLT COUNT & AUTO 2021-09-20 03:44:00 Castillo Narayan [facility] FERRITIN 2021-09-20 03:44:00 Rebecca Cuellar [facility] CBC W/PLT COUNT & AUTO 2021-09-20 03:44:00 Castillo Narayan [facility] POCT-GLUCOSE METER 2021-09-19 22:13:00 Rebecca Cuellar [facility] POCT-GLUCOSE METER 2021-09-19 17:40:00 Rebecca Cuellar [facility] MAGNESIUM 2021-09-19 15:24:00 Castillo Narayan [facility] POCT-GLUCOSE METER 2021-09-19 13:28:00 Rebecca Cuellar [facility] POCT-GLUCOSE METER 2021-09-19 08:10:00 Rebecca Cuellar [facility] SARS-COV2/RT-PCR ([facility] & REF 2021-09-19 05:35:00 Colette Gonzalez [facility] LABS) [facility] MAGNESIUM 2021-09-19 05:35:00 Nilam Mauro [facility] COMPREHENSIVE METABOLIC 2021-09-19 05:35:[address] [facility] CBC W/PLT COUNT & AUTO 2021-09-19 05:35:00 Castillo Narayan [facility] FERRITIN 2021-09-19 05:35:00 Rebecca Cuellar [facility] CBC W/PLT COUNT & AUTO 2021-09-19 05:35:00 Castillo Narayan [facility] POCT-GLUCOSE METER 2021-09-18 21:29:00 Rebecca Cuellar [facility] POCT-GLUCOSE METER 2021-09-18 16:56:00 Rebecca Cuellar [facility] POCT-GLUCOSE METER 2021-09-18 12:15:00 Rebecca Cuellar [facility] POCT-GLUCOSE METER 2021-09-18 08:35:00 Rebecca Cuellar [facility] MAGNESIUM 2021-09-18 06:58:00 [place], [facility] COMPREHENSIVE METABOLIC 2021-09-18 06:58:[address] [facility] CBC W/PLT COUNT & AUTO 2021-09-18 06:58:00 Castillo Narayan [facility] CBC W/PLT COUNT & AUTO 2021-09-18 06:58:00 Castillo Narayan [facility] POCT-GLUCOSE METER 2021-09-17 22:17:00 Rebecca Cuellar [facility] POCT-GLUCOSE METER 2021-09-17 17:06:00 Rebecca Cuellar [facility] POCT-GLUCOSE METER 2021-09-17 12:18:00 Rebecca Cuellar [facility] POCT-GLUCOSE METER 2021-09-17 07:52:00 Rebecca Cuellar [facility] MAGNESIUM 2021-09-17 05:45:00 [facility] 2021-09-17 05:45:00 Rose Lorenzo [facility] COMPREHENSIVE METABOLIC 2021-09-17 05:45:[address] [facility] CBC W/PLT COUNT & AUTO 2021-09-17 05:45:00 Castillo Narayan [facility] CMV PCR, QUANTITATIVE 2021-09-17 05:45:00 Charmaine Contreras [facility] CBC W/PLT COUNT & AUTO 2021-09-17 05:45:00 Castillo Narayan [facility] GI PATHOGEN PROFILE BY PCR 2021-09-17 05:11:00 Viviana Contreras [facility] GIARDIA ANTIGEN 2021-09-17 05:05:00 Castillo Narayan [facility] OVA AND PARASITE EXAMINATION 2021-09-17 04:59:00 Castillo Narayan [facility] POCT-GLUCOSE METER 2021-09-16 22:07:00 Rose Lorenzo [facility] POCT-GLUCOSE METER 2021-09-16 17:29:00 Rose Lorenzo [facility] POCT-GLUCOSE METER 2021-09-16 11:35:00 Rose Lorenzo [facility] POCT-GLUCOSE METER 2021-09-16 07:52:00 Rose Lorenzo [facility] MAGNESIUM 2021-09-16 06:50:00 Nilam Mauro [facility] CBC W/PLT COUNT & AUTO 2021-09-16 06:50:00 Rose Lorenzo [facility] COMPREHENSIVE METABOLIC 2021-09-16 06:50:[address] [facility] FERRITIN 2021-09-16 06:50:00 Rose Lorenzo [facility] CBC W/PLT COUNT & AUTO 2021-09-16 06:50:00 Rose Lorenzo [facility] POCT-GLUCOSE METER 2021-09-15 21:28:00 Rose Lorenzo [facility] POCT-GLUCOSE METER 2021-09-15 17:17:00 Rose Lorenzo [facility] BASIC METABOLIC PANEL (7) 2021-09-15 16:38:00 Rose Lorenzo [facility] MAGNESIUM 2021-09-15 16:38:00 Rose Lorenzo [facility] VENOUS DOPPLER LEG, LEFT 2021-09-15 15:25:00 Rose Lorenzo [facility] C. DIFFICILE GDH TOXIN 2021-09-15 14:29:00 Rose Lorenzo [facility] POCT-GLUCOSE METER 2021-09-15 10:56:00 Rose Lorenzo [facility] POCT-GLUCOSE METER 2021-09-15 07:10:00 Rose Lorenzo [facility] MAGNESIUM 2021-09-15 05:04:00 Nilam forrest [facility] CBC W/PLT COUNT & AUTO 2021-09-15 05:04:00 Rose Lorenzo [facility] COMPREHENSIVE METABOLIC 2021-09-15 05:04:[address] [facility] FERRITIN 2021-09-15 05:04:00 Rose Lorenzo [facility] CBC W/PLT COUNT & AUTO 2021-09-15 05:04:00 Rose Lorenzo [facility] POCT-GLUCOSE METER 2021-09-14 21:12:00 Rose Lorenzo [facility] POCT-GLUCOSE METER 2021-09-14 18:00:00 Rose Lorenzo [facility] FERRITIN 2021-09-14 14:00:00 Rose Lorenzo [facility] POCT-GLUCOSE METER 2021-09-14 12:40:00 Rose Lorenzo [facility] MAGNESIUM 2021-09-14 12:24:00 Nj Nilam [facility] BASIC METABOLIC PANEL (7) 2021-09-14 12:24:00 Rose Lorenzo [facility] HEPATIC FUNCTION PANEL 2021-09-14 12:24:00 Rose Lorenzo [facility] POCT-GLUCOSE METER 2021-09-14 08:04:00 Rose Lorenzo [facility] POCT-GLUCOSE METER 2021-09-13 21:38:00 Rose Lorenzo [facility] POCT-GLUCOSE METER 2021-09-13 16:22:00 Rose Lorenzo [facility] POCT-GLUCOSE METER 2021-09-13 11:57:00 Rose Lorenzo [facility] POCT-GLUCOSE METER 2021-09-13 09:31:00 Rose Lorenzo [facility] CBC W/PLT COUNT & AUTO 2021-09-13 04:11:00 Nj [facility] COMPREHENSIVE METABOLIC 2021-09-13 04:11:[address] [facility] MAGNESIUM 2021-09-13 04:11:00 Nj, [facility] PHOSPHORUS 2021-09-13 [facility] AUTO 2021-09-13 04:11:00 [facility] POCT-GLUCOSE METER 2021-09-12 21:08:00 Rose Lorenzo [facility] CBC W/PLT COUNT & AUTO 2021-09-12 17:30:00 Nj [facility] COMPREHENSIVE METABOLIC 2021-09-12 17:30:00 [facility] 2021-09-12 17:30[facility] 2021-09-12 17:30:00 [facility] HEMOGLOBIN A1C 2021-09-12 17:30:00 Rose Lorenzo [facility] DOUBLE-STRANDED DNA (DSDNA) 2021-09-12 17:30:00 [facility] ANTIBODY [facility] COMPLEMENT COMPONENT C3 2021-09-12 17:30:[address] [facility] FERRITIN 2021-09-12 17:30:00 Roes Lorenzo [facility] ANTI-DNA TITER 2021-09-12 17:30:00 [facility] CBC W/PLT COUNT & AUTO 2021-09-12 17:30:00 [facility] POCT-GLUCOSE METER 2021-09-12 16:59:00 Rose Lorenzo [facility] POCT-GLUCOSE METER 2021-09-12 11:36:00 Rose Lorenzo [facility] XR HIP 2 VIEWS BILATERAL 2021-09-12 10:40:00 Rose Lorenzo [facility] XR SHOULDER COMPLETE 2 VIEWS 2021-09-12 10:40:00 Flaco Lorenzo [facility] LEFT [facility] XR HAND 3 VIEWS LEFT 2021-09-12 10:40:00 Rose Lorenzo [facility] POCT-GLUCOSE METER 2021-09-12 07:29:00 Rose Lorenzo [facility] PROTEIN, RANDOM URINE 2021-09-12 05:46:00 [facility] CREATININE, RANDOM URINE 2021-09-12 05:46:00 [facility] POCT-GLUCOSE METER 2021-09-11 21:23:00 Rose Lorenzo [facility] POCT-GLUCOSE METER 2021-09-11 16:19:00 Rose Lorenzo [facility] POCT-GLUCOSE METER 2021-09-11 11:34:00 Rose Lorenzo [facility] BLOOD CULTURE 2021-09-11 09:40:00 Rose Lorenzo [facility] CBC W/PLT COUNT & AUTO 2021-09-11 09:40:00 [facility] COMPREHENSIVE METABOLIC 2021-09-11 09:40:00 [facility] MAGNESIUM 2021-09-11 09:40:00 [facility] PHOSPHORUS 2021-09-11 09:40:00 [facility] CBC W/PLT COUNT & AUTO 2021-09-11 09:40:00 [facility] POCT-GLUCOSE METER 2021-09-11 07:18:00 Rose Lorenzo [facility] CT ABDOMEN/PELVIS WITH IV 2021-09-10 23:05:00 Rose Lorenzo [facility] POCT-GLUCOSE METER 2021-09-10 20:57:00 Rose Lorenzo [facility] BLOOD CULTURE 2021-09-10 10:38:00 Rose Lorenzo [facility] LACTIC ACID, VENOUS 2021-09-10 10:36:00 [facility] PROTHROMBIN TIME/INR 2021-09-10 10:36:00 [facility] HospitalRose bacon [facility] APTT 2021-09-10 10:36:00 [facility] PROCALCITONIN 2021-09-10 10:36:00 [facility] HospitalRose [facility] XR CHEST 1 VIEW PORTABLE / 2021-09-10 09:14:00 Rose Lorenzo [facility] CBC W/PLT COUNT & AUTO 2021-09-10 05:05:00 [facility] COMPREHENSIVE METABOLIC 2021-09-10 05:05:[address] [facility] MAGNESIUM 2021-09-10 05:05:00 [facility] PHOSPHORUS 2021-09-10 05:05:00 [facility] CBC W/PLT COUNT & AUTO 2021-09-10 05:05:00 [facility] (CELLAVISION MANUAL DIFF) 2021-09-10 05:05:00 Nilam Mauro [facility] POCT-GLUCOSE METER 2021-09-09 20:57:00 Rose Lorenzo [facility] POCT-GLUCOSE METER 2021-09-09 16:16:00 [facility] HospitalRose bacon [facility] COMPREHENSIVE METABOLIC 2021-09-09 14:55:[address] [facility] POCT-GLUCOSE METER 2021-09-09 11:25:00 Rose Lorenzo [facility] 2D ECHO MODE W/O DOPPLER 2021-09-09 09:55:28 Babita Cano [facility] POCT-GLUCOSE METER 2021-09-09 06:44:00 Rose Lorenzo [facility] POCT-GLUCOSE METER 2021-09-08 21:08:00 Rose Lorenzo [facility] POCT-GLUCOSE METER 2021-09-08 19:41:00 Rose Lorenzo [facility] POCT-GLUCOSE METER 2021-09-08 11:25:00 Rose Lorenzo [facility] POCT-GLUCOSE METER 2021-09-08 09:10:00 Rose Lorenzo [facility] POCT-GLUCOSE METER 2021-09-08 05:04:00 Oren Kim [facility] CBC W/PLT COUNT & AUTO 2021-09-08 04:20:00 [facility] COMPREHENSIVE METABOLIC 2021-09-08 04:20:00 [facility] MAGNESIUM 2021-09-08 04:20:00 [facility] PHOSPHORUS 2021-09-08 04:20:00 [facility] CBC W/PLT COUNT & AUTO 2021-09-08 04:20:00 [facility] POCT-GLUCOSE METER 2021-09-07 23:09:00 Oren Kim [facility] POCT-GLUCOSE METER 2021-09-07 18:43:[address] [facility] HAPTOGLOBIN 2021-09-07 12:25:00 [facility] FIBRINOGEN 2021-09-07 12:25:00 [facility] VANCOMYCIN LEVEL, TROUGH 2021-09-07 12:25:00 David De La Vega [facility] HEMOGLOBIN AND HEMATOCRIT 2021-09-07 12:25:00 [facility]OLIC 2021-09-07 12:24:00 [facility] MAGNESIUM 2021-09-07 12:24:00 Anaya Bar [facility] PHOSPHORUS 2021-09-07 12:24:00 Anaya Bar [facility] LIPASE 2021-09-07 12:24:00 [facility] PROCALCITONIN 2021-09-07 12:24:00 [facility] HEPATIC FUNCTION PANEL 2021-09-07 12:24:00 [facility] POCT-GLUCOSE METER 2021-09-07 12:01:00 Rose Lorenzo [facility] URINALYSIS W/ REFLEX URINE 2021-09-07 11:58:[address] [facility] CBC W/PLT COUNT & AUTO 2021-09-07 05:29:00 Tiera Campoverde [facility] DIFFERENTIAL [facility] LACTIC ACID, VENOUS 2021-09-07 05:29:00 Tiera Campoverde [facility] B-TYPE NATRIURETIC FACTOR 2021-09-07 05:29:00 Kenroy Blake [facility] (BNP) [facility] PERIPHERAL BLOOD SMEAR - 2021-09-07 05:29:00 Anaya Bar [facility] PATHOLOGIST REVIEW Medical Cente r CBC W/PLT COUNT & AUTO 2021-09-07 05:29:00 Tiera Campoverde [facility] DIFFERENTIAL [facility] (CELLAVISION MANUAL DIFF) 2021-09-07 05:29:00 Kenroy Blake [facility] POCT-BLOOD GASES, ARTERIAL 2021-09-07 02:53:00 Shama Rosenthal [facility] POCT-SODIUM 2021-09-07 02:53:00 Shama Rosenthal [facility] POCT-POTASSIUM 2021-09-07 02:53:00 Shama Rosenthal [facility] POCT-HEMOGLOBIN 2021-09-07 02:53:00 Shama Rosenthal [facility] POCT-HEMATOCRIT 2021-09-07 02:53:00 Shama Rosenthal [facility] POCT-GLUCOSE 2021-09-07 02:53:00 Shama Rosenthal [facility] XR CHEST 1 VIEW PORTABLE / 2021-09-07 02:51:00 Shama Rosenthal [facility] ECG 12-LEAD 2021-09-07 01:42:00 [facility] 12[facility]AD 2021-09-07 01:42:00 Unknown, Hl7 [facility] ECG 12-LEAD 2021-09-07 01:37:32 Shama Rosenthal [facility] ECG 12-LEAD 2021-09-07 01:37:32 Unknown, Hl7 [facility] BASIC METABOLIC PANEL (7) 2021-09-07 01:05:00 Shama Rosenthal [facility] MAGNESIUM 2021-09-07 01:05:00 Shama Rosenthal [facility] PHOSPHORUS 2021-09-07 01:05:00 Shama Rosenthal [facility] LACTATE DEHYDROGENASE (LDH) 2021-09-07 01:05:00 Anaya Bar [facility] BILIRUBIN, DIRECT 2021-09-07 01:05:00 Anaya Bar [facility] POCT-GLUCOSE METER 2021-09-06 23:58:00 Shama Rosenthal [facility] POCT-GLUCOSE METER 2021-09-06 15:46:00 Shama Rosenthal [facility] MRSA SCREEN 2021-09-06 12:58:00 Nilam Mauro [facility] POCT-GLUCOSE METER 2021-09-06 12:53:00 Shama Rosenthal [facility] POCT-GLUCOSE METER 2021-09-06 07:29:00 Shama Rosenthal [facility] URINALYSIS W/ MICROSCOPIC 2021-09-06 05:28:00 [facility] PROTEIN, RANDOM URINE 2021-09-06 05:28:00 [facility] CREATININE, RANDOM URINE 2021-09-06 05:28:00 [facility] COMPLEMENT COMPONENT C3 2021-09-06 05:14:00 [facility] VITAMIN D, 25-HYDROXY 2021-09-06 05:14:00 Shama Rosenthal [facility] TSH/FREE T4 IF INDICATED 2021-09-06 05:14:00 [facility] XR CHEST 1 VIEW PORTABLE / 2021-09-06 02:18:[address] [facility] BLOOD CULTURE 2021-09-06 02:06:00 Shama Rosenthal [facility] BLOOD CULTURE 2021-09-06 02:01:00 Shama Rosenthal [facility] CBC W/PLT COUNT & AUTO 2021-09-06 02:01:[address] [facility] LACTIC ACID, VENOUS 2021-09-06 02:01:00 Shama Rosenthal [facility] CBC W/PLT COUNT & AUTO 2021-09-06 02:01:[address] [facility] (CELLAVISION MANUAL DIFF) 2021-09-06 02:01:00 Shama Rosenthal [facility] PHOSPHORUS 2021-09-06 02:00:00 [place] [facility] MAGNESIUM 2021-09-06 02:00:00 [facility] COMPREHENSIVE METABOLIC 2021-09-06 02:00:[address] [facility] SARS-COV2/RT-PCR (HS & REF 2021-09-06 01:54:00 Colette Gonzalez [facility] LABS) [facility] ECG 12-LEAD 2021-09-06 01:44:10 Shama Rosenthal [facility] POCT-GLUCOSE METER 2021-09-06 01:04:00 Shama Rosenthal [facility] BASIC METABOLIC PANEL (7) 2021-09-05 19:09:00 Shama Rosenthal [facility] MAGNESIUM 2021-09-05 19:09:00 Shama Rosenthal [facility] PHOSPHORUS 2021-09-05 19:09:00 Shama Rosenthal [facility] POCT-GLUCOSE METER 2021-09-05 19:00:00 Shama Rosenthal [facility] DOUBLE-STRANDED DNA (DSDNA) 2021-09-05 16:26:00 [facility] ANTIBODY [facility] FERRITIN 2021-09-05 16:26:00 [facility] ANTI-DNA TITER 2021-09-05 16:26:00 [facility] POCT-GLUCOSE METER 2021-09-05 12:11:00 Shama Rosenthal [facility] POCT-GLUCOSE METER 2021-09-05 06:34:00 Shama Rosenthal [facility] COMPREHENSIVE METABOLIC 2021-09-05 04:46:00 [facility] CBC (HEMOGRAM ONLY) 2021-09-05 04:46:00 [facility] CALCIUM, IONIZED 2021-09-05 04:46:00 Jermain Ward [facility] BASIC METABOLIC PANEL (7) 2021-09-05 00:40:00 Shama Rosenthal [facility] MAGNESIUM 2021-09-05 00:40:00 Shama Rosenthal [facility] PHOSPHORUS 2021-09-05 00:40:00 Shama Rosenthal [facility] POCT-GLUCOSE METER 2021-09-04 23:48:00 Shama Rosenthal [facility] CT ABDOMEN/PELVIS WITH IV 2021-09-04 21:08:[address] [facility] CHEST FOR PULMONARY 2021-09-04 21:08:00 Shama Rosenthal [facility] EMBOLUS [facility] POCT-GLUCOSE METER 2021-09-04 18:12:00 Shama Rosenthal [facility] CALCIUM 2021-09-04 14:09:00 [place] [facility] POCT-GLUCOSE METER 2021-09-04 13:06:00 [facility] 12-LEAD 2021-09-04 08:09:50 [place] [facility] POCT-GLUCOSE METER 2021-09-04 06:04:00 [facility]PREHENSIVE METABOLIC 2021-09-04 04:12:00 [facility]UM 2021-09-04 04:12[facility] & AUTO 2021-09-04 04:12:00 [facility] CBC W/PLT COUNT & AUTO 2021-09-04 04:12:00 Nj [facility] URINE CULTURE 2021-09-04 00:21[facility]00 [facility] W/ REFLEX URINE 2021-09-04 00:21:00 Nilam Mauro [facility] POCT-GLUCOSE METER 2021-09-04 00:14:00 Shama Rosenthal [facility] POCT-GLUCOSE METER 2021-09-03 17:51:00 [facility] COMPREHENSIVE METABOLIC 2021-09-03 16:56:00 [facility] W/PLT COUNT & AUTO 2021-09-03 16:56:[address] [facility] MAGNESIUM 2021-09-03 16:56:00 N[place] [facility] CBC W/PLT COUNT & AUTO 2021-09-03 16:56:[address] [facility] XR ABDOMEN / KUB 1 VIEW 2021-09-03 16:05:00 Nj [facility] XR CHEST 1 VIEW PORTABLE / 2021-09-03 16:02:[address] XR ABDOMEN / KUB 1 VIEW 2021-09-03 12:50:00 Shama Rosenthal [facility] COMPREHENSIVE METABOLIC 2021-09-03 05:02:00 Nilsa Rios CH I [facility] PHOSPHORUS 2021-09-03 05:02:00 N[place] [facility] POCT-GLUCOSE METER 2021-09-02 22:13:00 [facility] POCT-GLUCOSE METER 2021-09-02 18:48:00 [facility] CREATININE, RANDOM URINE 2021-09-02 04:39:00 [facility] PROTEIN, RANDOM URINE 2021-09-02 04:39:00 Ezequiel Cornellpana [facility] POCT-GLUCOSE METER 2021-09-01 23:16:00 Shama Rosenthal [facility] POCT-GLUCOSE METER 2021-09-01 18:08:00 [facility] HIGH SENSITIVITY TROPONIN I 2021-09-01 16:25:00 lon [facility] XR CHEST 1 VIEW PORTABLE / 2021-09-01 16:21:[address] [facility] ECG 12-LEAD 2021-09-01 15:41:33 Unknown, Hl7 [facility] COMPREHENSIVE METABOLIC 2021-09-01 06:00:00 Nilsa Rios CH I [facility] PROTHROMBIN TIME/INR 2021-09-01 06:00:00 [facility] PT/APTT 2021-09-01 06:00:00 [facility] CBC W/PLT COUNT & AUTO 2021-09-01 06:00:00 blayne [facility] T SPOT TB 2021-09-01 06:00:00 [facility] IMMUNOGLOBULIN A (IGA) 2021-09-01 06:00:00 [facility] CBC W/PLT COUNT & AUTO 2021-09-01 06:00:00 [facility]ig [facility] (CELLAVISION MANUAL DIFF) 2021-09-01 06:00:00 Xin Cornell [facility] POCT-GLUCOSE METER 2021-08-31 21:49:00 Galo Shamaabhinav Madrid[facility] POCT-GLUCOSE METER 2021-08-31 17:13:00 [facility] POCT-GLUCOSE METER 2021-08-31 13:28:00 Galo Shamaabhniav Madrid[facility] POCT-GLUCOSE METER 2021-08-31 08:41:00 [facility] MISCELLANEOUS LAB ORDER 2021-08-31 06:22:00 [facility] MISCELLANEOUS LAB ORDER 2021-08-31 05:16:00 Galo Shamaabhinav MadridPacific[facility] ANTI-DARRIN AB (RNA, LACY) 2021-08-31 05:14:00 Koki Cornell na [facility] CYCLIC CITRULLINATED PEPTIDE 2021-08-31 05:14:00 Renea Cornell [facility] AB, IGG [facility] CBC (HEMOGRAM ONLY) 2021-08-31 05:14:00 Nilsa Rios Gladys [facility] PROTHROMBIN TIME/INR 2021-08-31 05:14:00 Nj Nilam [facility] PT/APTT 2021-08-31 05:14:00 [facility] RETICULOCYTE COUNT 2021-08-31 05:14:00 Shama Rosenthal [facility] MISCELLANEOUS LAB ORDER 2021-08-31 05:13:00 Shama Rosenthal [facility] COMPLEMENT COMPONENT C3 2021-08-31 05:13:00 Shama Rosenthal [facility] FERRITIN 2021-08-31 05:13:00 Arsenio Cornella [facility] RHEUMATOID FACTOR AB, REFLEX 2021-08-31 05:13:00 Renea Cornell [facility] TO [facility] MAGNESIUM 2021-08-31 05:13:00 Vernell Gonzalez [facility] COMPREHENSIVE METABOLIC 2021-08-31 05:13:00 Nilsa Rios CH I [facility] HC LAB HIV-1 AG W/HIV-1&2 AB 2021-08-31 05:13:00 Shama Rosenthal [facility] RPR 2021-08-31 05:13:00 Shama Rosenthal [facility] RHEUMATOID FACTOR TITER 2021-08-31 05:13:00 Arsenio Cornell [facility] POCT-GLUCOSE METER 2021-08-30 21:08:00 Shama Rosenthal [facility] POCT-GLUCOSE METER 2021-08-30 17:25:00 Shama Rosenthal [facility] POCT-GLUCOSE METER 2021-08-30 12:38:00 Shama Rosenthal [facility] POCT-GLUCOSE METER 2021-08-30 08:11:00 Shama Rosenthal [facility] MAGNESIUM 2021-08-30 03:22:00 Vernell Gonzalez [facility] COMPREHENSIVE METABOLIC 2021-08-30 03:22:[address] [facility] CBC (HEMOGRAM ONLY) 2021-08-30 03:22:00 Gabriel [facility] PROTHROMBIN TIME/INR 2021-08-30 03:22:00 [facility] PT/APTT 2021-08-30 03:22:00 [facility] C-REACTIVE PROTEIN 2021-08-30 03:22:00 [facility] DOUBLE-STRANDED DNA (DSDNA) 2021-08-30 03:22:00 [facility] ANTIBODY [facility] LIPASE 2021-08-30 03:22:00 Viraj [facility] ANTI-DNA TITER 2021-08-30 03:22:00 [facility] POCT-GLUCOSE METER 2021-08-29 21:37:00 [facility] POCT-GLUCOSE METER 2021-08-29 17:43:00 Jasiel [facility] FIBRINOGEN 2021-08-29 13:31:[address] [facility] PHOSPHATIDYLSERINE ABS (IGG, 2021-08-29 13:31:00 [place] IGM) [facility] HEREDITARY HEMOCHROMATOSIS 2021-08-29 13:31:00 Rik Caro [facility] POCT-GLUCOSE METER 2021-08-29 11:43:00 [facility] POCT-GLUCOSE METER 2021-08-29 08:43:00 [facility] SARS-COV2/RT-PCR ([facility] & REF 2021-08-29 04:44:00 Colette Gonzalez [facility] MAGNESIUM 2021-08-29 04:41:00 Vernell Gonzalez [facility] COMPREHENSIVE METABOLIC 2021-08-29 04:41:00 Nilsa Rios I [facility] PROTHROMBIN TIME/INR 2021-08-29 04:41:00 Nilam Mauro [facility] LIPASE 2021-08-29 04:41:00 [facility] PHOSPHORUS 2021-08-29 04:41:00 Keyona Zuniga [facility] CBC (HEMOGRAM ONLY) 2021-08-29 04:40:00 Nilsa Rios [facility] PERIPHERAL BLOOD SMEAR - 2021-08-29 04:40:00 Efrain [facility] PATHOLOGIST RE[facility] (MANUAL DIFFERENTIAL) 2021-08-29 04:40:00 [facility] POCT-GLUCOSE METER 2021-08-29 04:30:00 [facility] ACTIN (SMOOTH MUSCLE) 2021-08-28 14:55:00 Rik Caro [facility] ANTIBODY, IGG [facility] ANTI-MITOCHONDRIAL AB, 2021-08-28 14:55:00 Rik Caro Lio [facility] REFLEX TO TITER [facility] ANTI-NUCLEAR ANTIBODY (STU) 2021-08-28 14:55:00 Rik Caro [facility] CERULOPLASMIN 2021-08-28 14:55:00 Rik Caro Lio [facility] FERRITIN 2021-08-28 14:55:00 Rik Caro Lio [facility] HEPATITIS A ANTIBODY, IGG 2021-08-28 14:55:00 Rik Caro [facility] HEPATITIS B CORE ANTIBODY, 2021-08-28 14:55:00 Rik Caro Lio [facility] TOTAL [facility] HEPATITIS B SURFACE ANTIBODY 2021-08-28 14:55:00 Rik Caro [facility] HEPATITIS B SURFACE ANTIGEN 2021-08-28 14:55:00 Rik Caro [facility] HEPATITIS C ANTIBODY 2021-08-28 14:55:00 Gordo [facility] IMMUNOGLOBULIN G (IGG) 2021-08-28 14:55:00 Gordo [facility] IRON, TIBC, % SAT. (WITHOUT 2021-08-28 14:55:00 [facility] STU TITER AND PATTERN 2021-08-28 14:55:00 Gordo [facility] MITOCHONDRIAL AB SCREEN 2021-08-28 14:55:00 Gordo [facility] MITOCHONDRIAL AB TITER 2021-08-28 14:55:00 Gordo [facility] MISCELLANEOUS LAB ORDER 2021-08-28 14:10:00 Gordo [facility] [id number]\\, SERUM 2021-08-28 14:10:00 Gordo [facility] RAPID DRUG SCREEN, URINE 2021-08-28 13:54:00 [facility] POCT-GLUCOSE METER 2021-08-28 12:20:00 [facility] POCT-GLUCOSE METER 2021-08-28 08:07:00 [facility] MAGNESIUM 2021-08-28 04:38:00 Vernell Gonzalez [facility] COMPREHENSIVE METABOLIC 2021-08-28 04:38:00 [facility] CBC (HEMOGRAM ONLY) 2021-08-28 04:38:00 [facility] POCT-GLUCOSE METER 2021-08-27 22:18:00 [facility] MR ABDOMEN WITHOUT IV 2021-08-27 17:55:00 [facility] ABDOMEN WITH & WITHOUT IV 2021-08-27 17:55:00 Nilsa Rios [facility] MAGNESIUM 2021-08-27 05:38:00 [facility] METABOLIC 2021-08-27 05:38:[address] [facility] CBC (HEMOGRAM ONLY) 2021-08-27 05:38:00 GabrielAnnNilsayoly Hallmana [facility] URINALYSIS W/ REFLEX URINE 2021-08-26 04:24:00 [facility] CULTURE [facility] BLOOD CULTURE 2021-08-26 04:15:00 [facility] BLOOD CULTURE 2021-08-26 01:51:00 [facility] CBC W/PLT COUNT & AUTO 2021-08-26 01:50:00 [facility] COMPREHENSIVE METABOLIC 2021-08-26 01:50:00 [facility] MAGNESIUM 2021-08-26 01:50:00 [facility] TRIGLYCERIDES 2021-08-26 01:50:00 [facility] LIPASE 2021-08-26 01:50:00 [facility] CBC W/PLT COUNT & AUTO 2021-08-26 01:50:00 [facility] (CELLAVISION MANUAL DIFF) 2021-08-26 01:50:00 [facility] PROTHROMBIN TIME/INR 2021-08-26 01:49:00 [facility] S [facility] IGG SUBCLASS-4 ONLY 2021-08-26 01:49:00 [facility] Plan of Care Planned Activity Planned Date Details Comments Source Future Scheduled 2030-11-15 DTAP/TDAP/TD VACCINES CH I [facility] Test 00:00:00 (2 - Td or Tdap) [code Medic al Center = DTAP/TDAP/TD VACCINES (2 - Td or Tdap)] Future Scheduled 2024-12-[address] [facility] 00:[facility]:00 (procedure) [code = Medical Center [id number]] Future Scheduled 2022-01-18 INFLUENZA VACCINE (#1) [facility] 00:[facility]:00 [code = INFLUENZA Medical Ce nter VACCINE (#1)] Future Scheduled 2021-11-[address] [facility] Test 00:00:00 0-64 YRS (2 - PPSV23 Medical Center or PCV20) [code = PNEUMOCOCCAL VACCINE 0-64 YRS (2 - PPSV23 or PCV20)] Future Scheduled 2020-09-19 COVID-19 VACCINE (2 - [facility] 00:00:00 Jaja risk series) [facility] [code = COVID-19 VACCINE (2 - Jaja risk series)] Encounters Start End Encounter Admission Attending Care Care Encounter Source Date/Time Date/Time Type Type Clinicians Facility Department ID 2021-12-07 [facility] [id number] 00:00:00 Encounter [facility] 2021-10-09 Outpatient 3 VJ CROUCH OT [id number] ENCHU 10:19:53 [facility]ARD 2021-10-08 Outpatient 3 VJ CROUCH OT [id number] ENCHU 16:06:37 WILLARD 2021-10-05 Outpatient 3 [id number] ENCHU REF [id number] ENCHU 08:52:05 2021-10-04 Outpatient 3 [id number] ENCHU REF [id number] ENCHU 08:39:39 2021-09-25 Outpatient 3 [id number] ENCSL OT [id number] ENCSL 10:41:49 2021-09-04 Outpatient 3 [id number] ENCSL REF [id number] ENCSL 15:32:58 2021-09-04 Outpatient 3 [id number] ENCPL REF [id number] ENCPL 08:59:04 4172021-09-02 Outpatient 3 [id number] ENCPL REF [id number] ENCPL 11:35:01 4152021-09-01 Outpatient 3 [id number] ENCPL REF [id number] ENCPL 14:10:28 0415 2021-12-07 2021-12-25 Inpatient ER [facility], [facility] Emergency [id number] [facility] 12:15:00 21:00:00 BETHANY 2021-12-07 2021-12-25 [facility] Khushi Ozuna [facility] [id number] 12:15:00 21:00:00 Encounter Bethany Durham Sahar Medi [facility] EmergencySuhail [facility] 2021-12-11 2021-12-11 Outside [facility] [id number] 00:00:00 00:00:00 Orders Bethany Lopez [facility] 2021-12-08 2021-12-08 Travel [facility] [id number] [facility] 00:00:00 [facility] 2021-12-07 2021-12-07 Travel [facility] [id number] [facility] 00:[facility]00 00:00:00 [facility] 2021-10-10 2021-10-27 [facility] [id number] [facility] 15:00:00 13:33:00 WILLARD [id number] 2021-10-23 2021-10-23 Outpatient NICHO SaraviaMikoKEAGAN riddleKW [facility] [id number] [facility] 13:20:00 13:20:00 Willard 60 [facility] 2021-10-20 2021-10-[address] [facility] [id number] 00:00:00 00:00:00 Orders [facility] 2021-10-19 2021-10-19 Outpatient ISMAEL GOYAL [facility] [id number] [address] [place] [address] 13:28:45 14:35:41 AMADO allen of Medicin e 2021-10-19 2021-10-19 Outpatient RIA HILARIO [facility] [id number] SLE 00:00:00 00:00:00 DOUG 2021-09-27 2021-10-10 Inpatient ER MAGDA [facility] Emergency [id number] [facility] 17:55:00 14:32:00 ALICEAshvin 2021-09-27 2021-10-[address] [facility] [id number] [facility] 17:55[facility]00 14:32:00 Encounter Cy Correia [facility] 2021-10-10 2021-10-10 Outpatient [facility] SLE [id number] SLE 00:00:00 00:00:00 DOUG 2021-10-02 2021-10-[address] [facility] [id number] [facility] 17:[facility]00 19:27:00 Event Ary Cohen Delvin [facility] 2021-10-02 2021-10-02 Surgery Lissette, [facility] [id number] 16:30:00 19:12:00 [facility] 2021-09-28 2021-09-28 Outpatient [facility] [id number] [facility] 00:00:00 23:59:00 Young Medicdavid e 2021-09-22 2021-09-27 Inpatient 3 HEVER CROUCHKELECHI ART [id number] ENC 19:40:00 16:58:00 WILLARD [id number] 2021-09-27 2021-09-27 [id number] [facility] 13:42:00 13:42:00 Willard 14 [facility] [place] 2021-08-25 2021-09-22 Inpatient ER [facility] Gastro [id number] [facility] 23:24:00 18:50:00 IRINA 2021-08-25 2021-09-22 [facility] Mana Dow [facility] [id number] 23:24:00 18:50:[address] [place] Rose Lorenzo Fang-Ying Heinen, Allison P. BhattaraIrina rodriguez 2021-09-07 2021-09-07 Outpatient CHAPIS OSPINA CHAPIS [id number] [facility] 00:00:00 00:00:00 BEAR deleon 2021-09-04 2021-09-04 Outpatient [facility] [id number] [facility] 00:00:00 23:59:00 [facility] 2021-09-01 2021-09-[address] [facility] [id number] 00:00:00 00:00:00 Only [facility] 2021-08-26 2021-08-26 Travel [facility] [id number] [facility] 00:00:00 [facility] Results Test Description Test Time Test Comments Results Result Comments Source SARS-CoV2/RT-PCR (Asymptomatic ONLY) 2021-12-25 10:50:35 Test Item Value Reference Range Interpretation Comme nts SARS-COV2/RT-PCR (test code = Negative Not Detected, 37264-2) Negative, See external report for linked test SARS-COV-2 PERFORMING LAB [facility] SHAUNA (test code = 31041-4) IDALIA (test code = IDALIA) Negative result for this test determines that [...] be considered in cases of suspected false negatives. The limit of detection for this assay is 800 copies/mL. This SARS CoV-2 test is a real-time RT-PCR test intended for the qualitative detection of nucleic acid from SARS-CoV-2 in a nasopharyngeal swab specimen collected from individuals suspected of COVID-19 by their healthcare provider. This test has not been Food and Drug [...] is revoked under Section 564(g) of the Act. Fact Sheet for Healthcare Providers:https://www.[employer]/sites/default/files/produ ct/documents/Fact_Sheet_HC_Pr girqsxk_Ukmi_CWSD-AyG-5.pdf Fact Sheet for Healthcare Patients:https://www.[employer]/sites/default/files/produc t/documents/Fact_Sheet_Patien xz_Sdnx_LOVU-WnG-0.pdf Performing Laboratory:[facility] [place] [address] [facility])2021-12-25 10:50:35 Test Item Value Reference Range Interpretation Comments SARS-COV2/RT-PCR (test Negative Not Detected, Negative, code = 0755823) See external report for linked test SARS-COV-2 PERFORMING LAB [facility] SHAUNA (test code = 6403072) Negative result for this test determines that [...] justifying the authorization of the emergency use ofin vitro diagnostic tests for detection and/or diagnosis of COVID-19 is terminated under Section 564(b)(2) of the Act or the EUA is revoked under Section 564(g) of the Act.Fact Sheet for Healthcare Prov iders:https://www.[employer]/sites/default/files/product/documents/Fact_Sheet_HC _Dpaqmtzie_Royc_BFTC-IvC-4.pdfFact Sheet for Healthcare Patients:https://www.[employer]/sites/default/files/product/docume nts/Kppc_Nwlds_Sgcgixsl_Fgcr_ZGJF-ZoO-6.pdfPerforming Laboratory:[facility] [place] [address] [id number] METABOLIC PANEL 2021-12-25 05:39:15 Test Item Value Reference Range Interpretation Comments SODIUM (BEAKER) 135 meq/L 136-145 L (test code = 381) POTASSIUM 3.8 meq/L 3.5-5.1 (BEAKER) (test code = 379) CHLORIDE (BEAKER) 98 meq/L 98-107 (test code = 382) CO2 (BEAKER) 28 meq/L 22-29 (test code = 355) BLOOD UREA 18 mg/dL 7-21 NITROGEN (BEAKER) (test code = 354) CREATININE 0.57 mg/dL 0.57-1.25 (BEAKER) (test code = 358) GLUCOSE RANDOM 138 mg/dL 70-105 H (BEAKER) (test code = 652) CALCIUM (BEAKER) 9.2 mg/dL 8.4-10.2 (test code = 697) EGFR (BEAKER) 142 Interpretatio n of eGFR (test code = mL/min/1.73 values Stage D escription 1092) sq m Result G1 Kiley l or high >=90 G2 Mildly decreased 60-89 G3a Mildl y to moderately 45-5 9 G3b Moderately to s everely 30-44 G4 Severl y decreased 15-29 G5 Kidney failure <15Reported eGF R is based on the CKD-EPI 2021 equation that d oes not use a race coefficientEsti mated GFR is not as accur ate as Creatinine Kari harrisno in predicting glom erular filtration rate . Estimated GFR is not appl icable for dialysis patien ts Benefits Coordinator ID - PIAYA LCBC W/PLT COUNT & AUTO [id number] 04:50:53 Test Item Value Reference Range Interpretation Comments WHITE BLOOD CELL COUNT (BEAKER) 10.8 K/ L 3.5-10.5 H (test code = 775) RED BLOOD CELL COUNT (BEAKER) 4.28 M/ L 4.63-6.08 L (test code = 761) HEMOGLOBIN (BEAKER) (test code = 11.2 GM/DL 13.7-17.5 L 410) HEMATOCRIT (BEAKER) (test code = 35.6 % 40.1-51.0 L 411) MEAN CORPUSCULAR VOLUME (BEAKER) 83.2 fL 79.0-92.2 (test code = 753) MEAN CORPUSCULAR HEMOGLOBIN 26.2 pg 25.7-32.2 (BEAKER) (test code = 751) MEAN CORPUSCULAR HEMOGLOBIN CONC 31.5 GM/DL 32.3-36.5 L (BEAKER) (test code = 752) RED CELL DISTRIBUTION WIDTH 19.8 % 11.6-14.4 H (BEAKER) (test code = 412) PLATELET COUNT (BEAKER) (test 268 K/CU MM 150-450 code = 756) MEAN PLATELET VOLUME (BEAKER) 10.8 fL 9.4-12.4 (test code = 754) NUCLEATED RED BLOOD CELLS 0 /100 WBC 0-0 (BEAKER) (test code = 413) NEUTROPHILS RELATIVE PERCENT 70 % (BEAKER) (test code = 429) LYMPHOCYTES RELATIVE PERCENT 20 % (BEAKER) (test code = 430) MONOCYTES RELATIVE PERCENT 7 % (BEAKER) (test code = 431) EOSINOPHILS RELATIVE PERCENT 2 % (BEAKER) (test code = 432) BASOPHILS RELATIVE PERCENT 1 % (BEAKER) (test code = 437) NEUTROPHILS ABSOLUTE COUNT 7.53 K/ L 1.78-5.38 H (BEAKER) (test code = 670) LYMPHOCYTES ABSOLUTE COUNT 2.12 K/ L 1.32-3.57 (BEAKER) (test code = 414) MONOCYTES ABSOLUTE COUNT (BEAKER) 0.70 K/ L 0.30-0.82 (test code = 415) EOSINOPHILS ABSOLUTE COUNT 0.22 K/ L 0.04-0.54 (BEAKER) (test code = 416) BASOPHILS ABSOLUTE COUNT (BEAKER) 0.09 K/ L 0.01-0.08 H (test code = 417) IMMATURE GRANULOCYTES-RELATIVE 1 % 0-1 PERCENT (BEAKER) (test code = 2801) BASIC METABOLIC [id number] 04:18:37 Test Item Value Reference Range Interpretation Comments SODIUM (BEAKER) 131 meq/L 136-145 L (test code = 381) POTASSIUM 4.0 meq/L 3.5-5.1 (BEAKER) (test code = 379) CHLORIDE (BEAKER) 95 meq/L 98-107 L (test code = 382) CO2 (BEAKER) 28 meq/L 22-29 (test code = 355) BLOOD UREA 18 mg/dL 7-21 NITROGEN (BEAKER) (test code = 354) CREATININE 0.61 mg/dL 0.57-1.25 (BEAKER) (test code = 358) GLUCOSE RANDOM 284 mg/dL 70-105 H (BEAKER) (test code = 652) CALCIUM (BEAKER) 8.9 mg/dL 8.4-10.2 (test code = 697) EGFR (BEAKER) 139 Interpretatio n of eGFR (test code = mL/min/1.73 values Stage De scription 1092) sq m Result G1 Kiley l or high >=90 G2 Mildly decreased 60-89 G3a Mildl y to moderately 45-5 9 G3b Moderately to s everely 30-44 G4 Severl y decreased 15-29 G5 Kidney failure <15Reported eGF R is based on the CKD-EPI 2021 equation that d oes not use a race coefficientEsti mated GFR is not as accur ate as Creatinine Kari harrison in predicting glom erular filtration rate . Estimated GFR is not appl icable for dialysis patien ts Benefits Coordinator ID - ALVINA MCBC W/PLT COUNT & AUTO [id number] 04:02:11 Test Item Value Reference Range Interpretation Comments WHITE BLOOD CELL COUNT (BEAKER) 12.0 K/ L 3.5-10.5 H (test code = 775) RED BLOOD CELL COUNT (BEAKER) 4.10 M/ L 4.63-6.08 L (test code = 761) HEMOGLOBIN (BEAKER) (test code = 10.5 GM/DL 13.7-17.5 L 410) HEMATOCRIT (BEAKER) (test code = 34.0 % 40.1-51.0 L 411) MEAN CORPUSCULAR VOLUME (BEAKER) 82.9 fL 79.0-92.2 (test code = 753) MEAN CORPUSCULAR HEMOGLOBIN 25.6 pg 25.7-32.2 L (BEAKER) (test code = 751) MEAN CORPUSCULAR HEMOGLOBIN CONC 30.9 GM/DL 32.3-36.5 L (BEAKER) (test code = 752) RED CELL DISTRIBUTION WIDTH 19.2 % 11.6-14.4 H (BEAKER) (test code = 412) PLATELET COUNT (BEAKER) (test 232 K/CU MM 150-450 code = 756) MEAN [...] (test code = 437) NEUTROPHILS ABSOLUTE COUNT 9.06 K/ L 1.78-5.38 H (BEAKER) (test code = 670) LYMPHOCYTES ABSOLUTE COUNT 1.76 K/ L 1.32-3.57 (BEAKER) (test code = 414) MONOCYTES ABSOLUTE COUNT (BEAKER) 0.73 K/ L 0.30-0.82 (test code = 415) EOSINOPHILS ABSOLUTE COUNT 0.16 K/ L 0.04-0.54 (BEAKER) (test code = 416) BASOPHILS ABSOLUTE COUNT (BEAKER) 0.06 K/ L 0.01-0.08 (test code = 417) IMMATURE GRANULOCYTES-RELATIVE 2 % 0-1 H PERCENT (BEAKER) (test code = 2801) BASIC METABOLIC [id number] 03:48:40 Test Item Value Reference Range Interpretation Comments SODIUM (BEAKER) 135 meq/L 136-145 L (test code = 381) POTASSIUM 3.9 meq/L 3.5-5.1 (BEAKER) (test code = 379) CHLORIDE (BEAKER) 98 meq/L 98-107 (test code = 382) CO2 (BEAKER) 27 meq/L 22-29 (test code = 355) BLOOD UREA 19 mg/dL 7-21 NITROGEN (BEAKER) (test code = 354) CREATININE 0.66 mg/dL 0.57-1.25 (BEAKER) (test code = 358) GLUCOSE RANDOM 215 mg/dL 70-105 H (BEAKER) (test code = 652) CALCIUM (BEAKER) 8.9 mg/dL 8.4-10.2 (test code = 697) EGFR (BEAKER) 137 Interpretatio n of eGFR (test code = mL/min/1.73 values Stage De scription 1092) sq m Result G1 Kiley l or high >=90 G2 Mildly decreased 60-89 G3a Mild ly to moderately 45-5 9 G3b Moderately to s everely 30-44 G4 Severl y decreased 15-29 G5 Kidney failure <15Reported eGF R is based on the CKD-EPI 2020 equation that d oes not use a race coefficientEsti mated GFR is not as accur ate as Creatinine Kari hunter in predicting glom erular filtration rate . Estimated GFR is not appl icable for dialysis patien ts Benefits Coordinator ID - BSCBC W/PLT COUNT & AUTO [id number] 03:25:33 Test Item Value Reference Range Interpretation Comments WHITE BLOOD CELL COUNT (BEAKER) 12.9 K/ L 3.5-10.5 H (test code = 775) RED BLOOD CELL COUNT (BEAKER) 4.19 M/ L 4.63-6.08 L (test code = 761) HEMOGLOBIN (BEAKER) (test code = 11.0 GM/DL 13.7-17.5 L 410) HEMATOCRIT (BEAKER) (test code = 34.9 % 40.1-51.0 L 411) MEAN CORPUSCULAR VOLUME (BEAKER) 83.3 fL 79.0-92.2 (test code = 753) MEAN CORPUSCULAR HEMOGLOBIN 26.3 pg 25.7-32.2 (BEAKER) (test code = 751) MEAN CORPUSCULAR HEMOGLOBIN CONC 31.5 GM/DL 32.3-36.5 L (BEAKER) (test code = 752) RED CELL DISTRIBUTION WIDTH 19.6 % 11.6-14.4 H (BEAKER) (test code = 412) PLATELET COUNT (BEAKER) (test 250 K/CU MM 150-450 code = 756) MEAN PLATELET VOLUME (BEAKER) 10.3 fL 9.4-12.4 (test code = 754) NUCLEATED [...] (test code = 437) NEUTROPHILS ABSOLUTE COUNT 9.85 K/ L 1.78-5.38 H (BEAKER) (test code = 670) LYMPHOCYTES ABSOLUTE COUNT 1.81 K/ L 1.32-3.57 (BEAKER) (test code = 414) MONOCYTES ABSOLUTE COUNT (BEAKER) 0.81 K/ L 0.30-0.82 (test code = 415) EOSINOPHILS ABSOLUTE COUNT 0.22 K/ L 0.04-0.54 (BEAKER) (test code = 416) BASOPHILS ABSOLUTE COUNT (BEAKER) 0.08 K/ L 0.01-0.08 (test code = 417) IMMATURE GRANULOCYTES-RELATIVE 1 % 0-1 PERCENT (BEAKER) (test code = 2801) COMPLEMENT COMPONENT [id number] 05:12:57 Test Item Value Reference Range Interpretation Comments C3 COMPLEMENT (BEAKER) (test code = 58 mg/dL 82-193 L 393) Benefits Coordinator ID - PIAYA LCOMPLEMENT COMPONENT [id number] 05:12:56 Test Item Value Reference Range Interpretation Comments C4 COMPLEMENT (BEAKER) (test code = 5 mg/dL 15-57 L 394) Benefits Coordinator ID - PIAYA LBASIC METABOLIC [id number] 04:43:01 Test Item Value Reference Range Interpretation Comments SODIUM (BEAKER) 138 meq/L 136-145 (test code = 381) POTASSIUM 3.7 meq/L 3.5-5.1 (BEAKER) (test code = 379) CHLORIDE (BEAKER) 100 meq/L 98-107 (test code = 382) CO2 (BEAKER) 30 meq/L 22-29 H (test code = 355) BLOOD UREA 19 mg/dL 7-21 NITROGEN (BEAKER) (test code = 354) CREATININE 0.63 mg/dL 0.57-1.25 (BEAKER) (test code = 358) GLUCOSE RANDOM 158 mg/dL 70-105 H (BEAKER) (test code = 652) CALCIUM (BEAKER) 9.2 mg/dL 8.4-10.2 (test code = 697) EGFR (BEAKER) 138 Interpretatio n of eGFR (test code = mL/min/1.73 values Stage De scription 1092) sq m Result G1 Kiley l or high >=90 G2 Mildly decreased 60-89 G3a Mildl y to moderately 45-5 9 G3b Moderately to s everely 30-44 G4 Severl y decreased 15-29 G5 Kidney failure <15Reported eGF R is based on the CKD-EPI 2020 equation that d oes not use a race coefficientEsti mated GFR is not as accur ate as Creatinine Kari hunter in predicting glom erular filtration rate . Estimated GFR is not appl icable for dialysis patien ts Benefits Coordinator ID - ALVINA M-CBC W/PLT COUNT & AUTO [id number] 04:23:52 Test Item Value Reference Range Interpretation Comments WHITE BLOOD CELL COUNT (BEAKER) 14.2 K/ L 3.5-10.5 H (test code = 775) RED BLOOD CELL COUNT (BEAKER) 4.47 M/ L 4.63-6.08 L (test code = 761) HEMOGLOBIN (BEAKER) (test code = 11.3 GM/DL 13.7-17.5 L 410) HEMATOCRIT (BEAKER) (test code = 36.2 % 40.1-51.0 L 411) MEAN CORPUSCULAR VOLUME (BEAKER) 81.0 fL 79.0-92.2 (test code = 753) MEAN CORPUSCULAR HEMOGLOBIN 25.3 pg 25.7-32.2 L (BEAKER) (test code = 751) MEAN CORPUSCULAR HEMOGLOBIN CONC 31.2 GM/DL 32.3-36.5 L (BEAKER) (test code = 752) RED CELL DISTRIBUTION WIDTH 19.3 % 11.6-14.4 H (BEAKER) (test code = 412) PLATELET COUNT (BEAKER) (test 276 K/CU MM 150-450 code = 756) MEAN PLATELET VOLUME (BEAKER) 10.4 fL 9.4-12.4 (test code = 754) NUCLEATED RED BLOOD CELLS 0 /100 WBC 0-0 (BEAKER) (test code = 413) NEUTROPHILS RELATIVE PERCENT 74 % (BEAKER) (test code = 429) LYMPHOCYTES RELATIVE PERCENT 16 % (BEAKER) (test code = 430) MONOCYTES RELATIVE PERCENT 7 % (BEAKER) (test code = 431) EOSINOPHILS RELATIVE PERCENT 1 % (BEAKER) (test code = 432) BASOPHILS RELATIVE PERCENT 1 % (BEAKER) (test code = 437) NEUTROPHILS ABSOLUTE COUNT 10.49 K/ L 1.78-5.38 H (BEAKER) (test code = 670) LYMPHOCYTES ABSOLUTE COUNT 2.25 K/ L 1.32-3.57 (BEAKER) (test code = 414) MONOCYTES ABSOLUTE COUNT (BEAKER) 0.93 K/ L 0.30-0.82 H (test code = 415) EOSINOPHILS ABSOLUTE COUNT 0.19 K/ L 0.04-0.54 (BEAKER) (test code = 416) BASOPHILS ABSOLUTE COUNT (BEAKER) 0.10 K/ L 0.01-0.08 H (test code = 417) IMMATURE GRANULOCYTES-RELATIVE 2 % 0-1 H PERCENT (BEAKER) (test code = 2801) BASIC METABOLIC [id number] 06:45:19 Test Item Value Reference Range Interpretation Comments SODIUM (BEAKER) 138 meq/L 136-145 (test code = 381) POTASSIUM 4.0 meq/L 3.5-5.1 (BEAKER) (test code = 379) CHLORIDE (BEAKER) 100 meq/L 98-107 (test code = 382) CO2 (BEAKER) 31 meq/L 22-29 H (test code = 355) BLOOD UREA 18 mg/dL 7-21 NITROGEN (BEAKER) (test code = 354) CREATININE 0.63 mg/dL 0.57-1.25 (BEAKER) (test code = 358) GLUCOSE RANDOM 111 mg/dL 70-105 H (BEAKER) (test code = 652) CALCIUM (BEAKER) 9.1 mg/dL 8.4-10.2 (test code = 697) EGFR (BEAKER) 138 Interpretatio n of eGFR (test code = mL/min/1.73 values Stage De scription 1092) sq m Result G1 Kiley l or high >=90 G2 Mildly decreased 60-89 G3a Mildl y to moderately 45-5 9 G3b Moderately to s everely 30-44 G4 Severl y decreased 15-29 G5 Kidney failure <15Reported eGF R is based on the CKD-EPI 2020 equation that d oes not use a race coefficientEsti mated GFR is not as accur ate as Creatinine Kari hunter in predicting glom erular filtration rate . Estimated GFR is not appl icable for dialysis patien ts Benefits Coordinator ID - PIAYA LCBC W/PLT COUNT & AUTO [id number] 06:29:46 Test Item Value Reference Range Interpretation Comments WHITE BLOOD CELL COUNT (BEAKER) 12.4 K/ L 3.5-10.5 H (test code = 775) RED BLOOD CELL COUNT (BEAKER) 4.28 M/ L 4.63-6.08 L (test code = 761) HEMOGLOBIN (BEAKER) (test code = 11.2 GM/DL 13.7-17.5 L 410) HEMATOCRIT (BEAKER) (test code = 35.6 % 40.1-51.0 L 411) MEAN CORPUSCULAR VOLUME (BEAKER) 83.2 fL 79.0-92.2 (test code = 753) MEAN CORPUSCULAR HEMOGLOBIN 26.2 pg 25.7-32.2 (BEAKER) (test code = 751) MEAN CORPUSCULAR HEMOGLOBIN CONC 31.5 GM/DL 32.3-36.5 L (BEAKER) (test code = 752) RED CELL DISTRIBUTION WIDTH 19.4 % 11.6-14.4 H (BEAKER) (test code = 412) PLATELET COUNT (BEAKER) (test 285 K/CU MM 150-450 code = 756) MEAN PLATELET VOLUME (BEAKER) 11.5 fL 9.4-12.4 (test code = 754) NUCLEATED RED BLOOD CELLS 0 /100 WBC 0-0 (BEAKER) (test code = 413) NEUTROPHILS RELATIVE PERCENT 73 % (BEAKER) (test code = 429) LYMPHOCYTES RELATIVE PERCENT 16 % (BEAKER) (test code = 430) MONOCYTES RELATIVE PERCENT 8 % (BEAKER) (test code = 431) EOSINOPHILS RELATIVE PERCENT 1 % (BEAKER) (test code = 432) BASOPHILS RELATIVE PERCENT 1 % (BEAKER) (test code = 437) NEUTROPHILS ABSOLUTE COUNT 9.04 K/ L 1.78-5.38 H (BEAKER) (test code = 670) LYMPHOCYTES ABSOLUTE COUNT 1.98 K/ L 1.32-3.57 (BEAKER) (test code = 414) MONOCYTES ABSOLUTE COUNT (BEAKER) 0.94 K/ L 0.30-0.82 H (test code = 415) EOSINOPHILS ABSOLUTE COUNT 0.18 K/ L 0.04-0.54 (BEAKER) (test code = 416) BASOPHILS ABSOLUTE COUNT (BEAKER) 0.07 K/ L 0.01-0.08 (test code = 417) IMMATURE GRANULOCYTES-RELATIVE 2 % 0-1 H PERCENT (BEAKER) (test code = 2801) CT, [id number] 15:01:00Unlisted Reason for Exam - Click Yes and Enter Reason Below->Nointraabdominal abscessesIs this for enterography?->NoWill this procedure require oral contrast?->Yes [facility] : 2000 Sex: MFINAL REPORT CT of the abdomen and pelvis, with contrast Clinical History: Abdominal pain, fever Technique: CT of the abdomen and pelvis is performed with intravenous contrast administration. This exam was performed according to our departmental dose optimization program which includes automated exposure control, adjustment of the mA and/or kV according to patient's size and/or use of iterative reconstructive technique. Comparison Film: December 14, 2021, December 10, 2021, September 27, 2021 Discussion: Visualized lower thorax is unremarkable. Liver appears mildly fatty. No liver mass is identified. No biliary ductal dilatation, gallbladder is normal. Spleen is mildly enlarged and measures 13.5 cm sagittally. It contains multiple tiny calcified granulomas. Adrenal glands are normal. 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 A surgical drain adjacent to the pancreas is in stable position, no significant residual collection is present. No pancreatic ductal dilatation. Kidneys demonstrate no mass, hydronephrosis or radiopaque stone. There is another pigtail drainage catheter in the right abdomen, which is retracted to the right abdominal wall. Previously seen horizontally oriented fluid collection in the right anterior pararenal space just below the hepatic tip is marginally smaller, and measures approximately 6 x 1.1 cm.. There is another drainage catheter in the left abdomen, terminating in the pericolic gutter, no associated collection. No bowel obstruction, or abnormal bowel wall thickening. In the pelvis, the bladder, prostate and seminal vesicles are unremarkable. There is no new fluid collection. No ascites or adenopathy. Bony structures demonstrate degenerative changes. 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 A right sided pigtail drainage catheter has retracted to the abdominal wall, the right anterior pararenal space collection is marginally smaller. There is a second drainage catheter in the left paracolic gutter, no associated fluid collection. Mild hepatic steatosis. Signed: Nevin Hadley MDReportVerified Date/Time: 12/20/2021 15:01:52 [place] Location: [facility] [id number] Ortho Consult [place] Room Jelly ctronically signed by: NEVIN HADLEY M.D. on 12/20/2021 03:01 PMBASI METABOLIC [id number] 06:08:38 Test Item Value Reference Range Interpretation Comments SODIUM (BEAKER) 134 meq/L 136-145 L (test code = 381) POTASSIUM 4.0 meq/L 3.5-5.1 (BEAKER) (test code = 379) CHLORIDE (BEAKER) 97 meq/L 98-107 L (test code = 382) CO2 (BEAKER) 29 meq/L 22-29 (test code = 355) BLOOD UREA 17 mg/dL 7-21 NITROGEN (BEAKER) (test code = 354) CREATININE 0.69 mg/dL 0.57-1.25 (BEAKER) (test code = 358) GLUCOSE RANDOM 218 mg/dL 70-105 H (BEAKER) (test code = 652) CALCIUM (BEAKER) 9.0 mg/dL 8.4-10.2 (test code = 697) EGFR (BEAKER) 135 Interpretatio n of eGFR (test code = mL/min/1.73 values Stage De scription 1092) sq m Result G1 Kiley l or high >=90 G2 Mildly decreased 60-89 G3a Mildl y to moderately 45-5 9 G3b Moderately to s everely 30-44 G4 Severl y decreased 15-29 G5 Kidney failure <15Reported eGF R is based on the CKD-EPI 2020 equation that d oes not use a race coefficientEsti mated GFR is not as accur ate as Creatinine Kari harrison in predicting glom erular filtration rate . Estimated GFR is not appl icable for dialysis patien ts Benefits Coordinator ID - BISI [id number] 06:08:38 Test Item Value Reference Range Interpretation Comments MAGNESIUM (BEAKER) (test code = 1.7 mg/dL 1.6-2.6 627) Benefits Coordinator ID - BISI GCBC W/PLT COUNT & AUTO [id number] 05:55:13 Test Item Value Reference Range Interpretation Comments WHITE BLOOD CELL COUNT (BEAKER) 14.4 K/ L 3.5-10.5 H (test code = 775) RED BLOOD CELL COUNT (BEAKER) 4.61 M/ L 4.63-6.08 L (test code = 761) HEMOGLOBIN (BEAKER) (test code = 11.4 GM/DL 13.7-17.5 L 410) HEMATOCRIT (BEAKER) (test code = 37.7 % 40.1-51.0 L 411) MEAN CORPUSCULAR VOLUME (BEAKER) 81.8 fL 79.0-92.2 (test code = 753) MEAN CORPUSCULAR HEMOGLOBIN 24.7 pg 25.7-32.2 L (BEAKER) (test code = 751) MEAN CORPUSCULAR HEMOGLOBIN CONC 30.2 GM/DL 32.3-36.5 L (BEAKER) (test code = 752) RED CELL DISTRIBUTION WIDTH 19.1 % 11.6-14.4 H (BEAKER) (test code = 412) PLATELET COUNT (BEAKER) (test 318 K/CU MM 150-450 code = 756) MEAN PLATELET VOLUME (BEAKER) 10.9 fL 9.4-12.4 (test code = 754) NUCLEATED RED BLOOD CELLS 0 /100 WBC 0-0 (BEAKER) (test code = 413) NEUTROPHILS RELATIVE PERCENT 77 % (BEAKER) (test code = 429) LYMPHOCYTES RELATIVE PERCENT 14 % (BEAKER) (test code = 430) MONOCYTES RELATIVE PERCENT 7 % (BEAKER) (test code = 431) EOSINOPHILS RELATIVE PERCENT 1 % (BEAKER) (test code = 432) BASOPHILS RELATIVE PERCENT 0 % (BEAKER) (test code = 437) NEUTROPHILS ABSOLUTE COUNT 11.05 K/ L 1.78-5.38 H (BEAKER) (test code = 670) LYMPHOCYTES ABSOLUTE COUNT 2.02 K/ L 1.32-3.57 (BEAKER) (test code = 414) MONOCYTES ABSOLUTE COUNT (BEAKER) 0.98 K/ L 0.30-0.82 H (test code = 415) EOSINOPHILS ABSOLUTE COUNT 0.10 K/ L 0.04-0.54 (BEAKER) (test code = 416) BASOPHILS ABSOLUTE COUNT (BEAKER) 0.05 K/ L 0.01-0.08 (test code = 417) IMMATURE GRANULOCYTES-RELATIVE 1 % 0-1 PERCENT (BEAKER) (test code = 2801) [id number] 05:57:20 Test Item Value Reference Range Interpretation Comments MAGNESIUM (BEAKER) (test code = 1.8 mg/dL 1.6-2.6 627) Benefits Coordinator ID - PIAYA LBASIC METABOLIC [id number] 05:57:19 Test Item Value Reference Range Interpretation Comments SODIUM (BEAKER) 133 meq/L 136-145 L (test code = 381) POTASSIUM 3.7 meq/L 3.5-5.1 (BEAKER) (test code = 379) CHLORIDE (BEAKER) 98 meq/L 98-107 (test code = 382) CO2 (BEAKER) 27 meq/L 22-29 (test code = 355) BLOOD UREA 15 mg/dL 7-21 NITROGEN (BEAKER) (test code = 354) CREATININE 0.65 mg/dL 0.57-1.25 (BEAKER) (test code = 358) GLUCOSE RANDOM 170 mg/dL 70-105 H (BEAKER) (test code = 652) CALCIUM (BEAKER) 8.8 mg/dL 8.4-10.2 (test code = 697) EGFR (BEAKER) 137 Interpretatio n of eGFR (test code = mL/min/1.73 values Stage De scription 1092) sq m Result G1 Kiley l or high >=90 G2 Mildly decreased 60-89 G3a Mildl y to moderately 45-5 9 G3b Moderately to s everely 30-44 G4 Severl y decreased 15-29 G5 Kidney failure <15Reported eGF R is based on the CKD-EPI 2020 equation that d oes not use a race coefficientEsti mated GFR is not as accur ate as Creatinine Kari hunter in predicting glom erular filtration rate . Estimated GFR is not appl icable for dialysis patien ts Benefits Coordinator ID - PIAYA LCBC W/PLT COUNT & AUTO [id number] 05:05:06 Test Item Value Reference Range Interpretation Comments WHITE BLOOD CELL COUNT (BEAKER) 15.3 K/ L 3.5-10.5 H (test code = 775) RED BLOOD CELL COUNT (BEAKER) 4.40 M/ L 4.63-6.08 L (test code = 761) HEMOGLOBIN (BEAKER) (test code = 11.2 GM/DL 13.7-17.5 L 410) HEMATOCRIT (BEAKER) (test code = 36.1 % 40.1-51.0 L 411) MEAN CORPUSCULAR VOLUME (BEAKER) 82.0 fL 79.0-92.2 (test code = 753) MEAN CORPUSCULAR HEMOGLOBIN 25.5 pg 25.7-32.2 L (BEAKER) (test code = 751) MEAN CORPUSCULAR HEMOGLOBIN CONC 31.0 GM/DL 32.3-36.5 L (BEAKER) (test code = 752) RED CELL DISTRIBUTION WIDTH 18.8 % 11.6-14.4 H (BEAKER) (test code = 412) PLATELET COUNT (BEAKER) (test 273 K/CU MM 150-450 code = 756) MEAN PLATELET VOLUME (BEAKER) 9.6 fL 9.4-12.4 (test code = 754) NUCLEATED RED BLOOD CELLS 0 /100 WBC 0-0 (BEAKER) (test code = 413) NEUTROPHILS RELATIVE PERCENT 80 % (BEAKER) (test code = 429) LYMPHOCYTES RELATIVE PERCENT 11 % (BEAKER) (test code = 430) MONOCYTES RELATIVE PERCENT 6 % (BEAKER) (test code = 431) EOSINOPHILS RELATIVE PERCENT 1 % (BEAKER) (test code = 432) BASOPHILS RELATIVE PERCENT 0 % (BEAKER) (test code = 437) NEUTROPHILS ABSOLUTE COUNT 12.29 K/ L 1.78-5.38 H (BEAKER) (test code = 670) LYMPHOCYTES ABSOLUTE COUNT 1.70 K/ L 1.32-3.57 (BEAKER) (test code = 414) MONOCYTES ABSOLUTE COUNT (BEAKER) 0.96 K/ L 0.30-0.82 H (test code = 415) EOSINOPHILS ABSOLUTE COUNT 0.10 K/ L 0.04-0.54 (BEAKER) (test code = 416) BASOPHILS ABSOLUTE COUNT (BEAKER) 0.06 K/ L 0.01-0.08 (test code = 417) IMMATURE GRANULOCYTES-RELATIVE 1 % 0-1 PERCENT (BEAKER) (test code = 2801) [id number] 05:14:32 Test Item Value Reference Range Interpretation Comments MAGNESIUM (BEAKER) (test code = 1.6 mg/dL 1.6-2.6 627) Benefits Coordinator ID - DBBASIC METABOLIC [id number] 05:14:31 Test Item Value Reference Range Interpretation Comments SODIUM (BEAKER) 131 meq/L 136-145 L (test code = 381) POTASSIUM 3.7 meq/L 3.5-5.1 (BEAKER) (test code = 379) CHLORIDE (BEAKER) 97 meq/L 98-107 L (test code = 382) CO2 (BEAKER) 24 meq/L 22-29 (test code = 355) BLOOD UREA 18 mg/dL 7-21 NITROGEN (BEAKER) (test code = 354) CREATININE 0.67 mg/dL 0.57-1.25 (BEAKER) (test code = 358) GLUCOSE RANDOM 199 mg/dL 70-105 H (BEAKER) (test code = 652) CALCIUM (BEAKER) 8.7 mg/dL 8.4-10.2 (test code = 697) EGFR (BEAKER) 136 Interpretatio n of eGFR (test code = mL/min/1.73 values Stage De scription 1092) sq m Result G1 Kiley l or high >=90 G2 Mildly decreased 60-89 G3a Mildl y to moderately 45-5 9 G3b Moderately to s everely 30-44 G4 Severl y decreased 15-29 G5 Kidney failure <15Reported eGF R is based on the CKD-EPI 2020 equation that d oes not use a race coefficientEsti mated GFR is not as accur ate as Creatinine Kari hunter in predicting glom erular filtration rate . Estimated GFR is not appl icable for dialysis patien ts Benefits Coordinator ID - DBCBC W/PLT COUNT & AUTO [id number] 04:29:19 Test Item Value Reference Range Interpretation Comments WHITE BLOOD CELL COUNT (BEAKER) 14.1 K/ L 3.5-10.5 H (test code = 775) RED BLOOD CELL COUNT (BEAKER) 4.39 M/ L 4.63-6.08 L (test code = 761) HEMOGLOBIN (BEAKER) (test code = 10.9 GM/DL 13.7-17.5 L 410) HEMATOCRIT (BEAKER) (test code = 36.1 % 40.1-51.0 L 411) MEAN CORPUSCULAR VOLUME (BEAKER) 82.2 fL 79.0-92.2 (test code = 753) MEAN CORPUSCULAR HEMOGLOBIN 24.8 pg 25.7-32.2 L (BEAKER) (test code = 751) MEAN CORPUSCULAR HEMOGLOBIN CONC 30.2 GM/DL 32.3-36.5 L (BEAKER) (test code = 752) RED CELL DISTRIBUTION WIDTH 18.5 % 11.6-14.4 H (BEAKER) (test code = 412) PLATELET COUNT (BEAKER) (test 303 K/CU MM 150-450 code = 756) MEAN PLATELET VOLUME (BEAKER) 10.5 fL 9.4-12.4 (test code = 754) NUCLEATED RED BLOOD CELLS 0 /100 WBC 0-0 (BEAKER) (test code = 413) NEUTROPHILS RELATIVE PERCENT 77 % (BEAKER) (test code = 429) LYMPHOCYTES RELATIVE PERCENT 13 % (BEAKER) (test code = 430) MONOCYTES RELATIVE PERCENT 8 % (BEAKER) (test code = 431) EOSINOPHILS RELATIVE PERCENT 1 % (BEAKER) (test code = 432) BASOPHILS RELATIVE PERCENT 0 % (BEAKER) (test code = 437) NEUTROPHILS ABSOLUTE COUNT 10.86 K/ L 1.78-5.38 H (BEAKER) (test code = 670) LYMPHOCYTES ABSOLUTE COUNT 1.78 K/ L 1.32-3.57 (BEAKER) (test code = 414) MONOCYTES ABSOLUTE COUNT (BEAKER) 1.10 K/ L 0.30-0.82 H (test code = 415) EOSINOPHILS ABSOLUTE COUNT 0.10 K/ L 0.04-0.54 (BEAKER) (test code = 416) BASOPHILS ABSOLUTE COUNT (BEAKER) 0.05 K/ L 0.01-0.08 (test code = 417) IMMATURE GRANULOCYTES-RELATIVE 2 % 0-1 H PERCENT (BEAKER) (test code = 2801) SARS-COV2/RT-PCR ([facility])2021-12-18 02:02:45 Test Item Value Reference Range Interpretation Comments SARS-COV2/RT-PCR (test Negative Not Detected, Negative, code = 4929853) See external report for linked test SARS-COV-2 PERFORMING LAB [facility] (test code = 2755737) Negative result for this test determines that [...] justifying the authorization of the emergency use ofin vitro diagnostic tests for detection and/or diagnosis of COVID-19 is terminated under Section 564(b)(2) of the Act or the EUA is revoked under Section 564(g) of the Act.Fact Sheet for Healthcare Prov iders:https://www.[employer]/sites/default/files/product/documents/Fact_Sheet_HC _Rhesvisgm_Vhph_TXHH-KuR-0.pdfFact Sheet for Healthcare Patients:https://www.[employer]/sites/default/files/product/docume nts/Vqxu_Fvoro_Yszmbhur_Iuyy_AARN-MgA-8.pdfPerforming Laboratory:[facility], [place] [address]LCXYNNGL KINASE (CK) 2021-12-17 07:03:15 Test Item Value Reference Range Interpretation Comments CREATINE KINASE TOTAL (BEAKER) (test < U/L 29-200 L code = 380) Benefits Coordinator ID - BISI GBASIC METABOLIC [id number] 06:48:47 Test Item Value Reference Range Interpretation Comments SODIUM (BEAKER) 138 meq/L 136-145 (test code = 381) POTASSIUM 3.9 meq/L 3.5-5.1 (BEAKER) (test code = 379) CHLORIDE (BEAKER) 100 meq/L 98-107 (test code = 382) CO2 (BEAKER) 30 meq/L 22-29 H (test code = 355) BLOOD UREA 17 mg/dL 7-21 NITROGEN (BEAKER) (test code = 354) CREATININE 0.69 mg/dL 0.57-1.25 (BEAKER) (test code = 358) GLUCOSE RANDOM 232 mg/dL 70-105 H (BEAKER) (test code = 652) CALCIUM (BEAKER) 9.2 mg/dL 8.4-10.2 (test code = 697) EGFR (BEAKER) 135 Interpretatio n of eGFR (test code = mL/min/1.73 values Stage De scription 1092) sq m Result G1 Kiley l or high >=90 G2 Mildly decreased 60-89 G3a Mildl y to moderately 45-5 9 G3b Moderately to s everely 30-44 G4 Severl y decreased 15-29 G5 Kidney failure <15Reported eGF R is based on the CKD-EPI 2020 equation that d oes not use a race coefficientEsti mated GFR is not as accur ate as Creatinine Kari hunter in predicting glom erular filtration rate . Estimated GFR is not appl icable for dialysis patien ts Benefits Coordinator ID - BISI [id number] 06:48:47 Test Item Value Reference Range Interpretation Comments MAGNESIUM (BEAKER) (test code = 1.7 mg/dL 1.6-2.6 627) Benefits Coordinator ID - BISI GCBC W/PLT COUNT & AUTO [id number] 06:18:24 Test Item Value Reference Range Interpretation Comments WHITE BLOOD CELL COUNT (BEAKER) 16.2 K/ L 3.5-10.5 H (test code = 775) RED BLOOD CELL COUNT (BEAKER) 4.58 M/ L 4.63-6.08 L (test code = 761) HEMOGLOBIN (BEAKER) (test code = 11.6 GM/DL 13.7-17.5 L 410) HEMATOCRIT (BEAKER) (test code = 37.3 % 40.1-51.0 L 411) MEAN CORPUSCULAR VOLUME (BEAKER) 81.4 fL 79.0-92.2 (test code = 753) MEAN CORPUSCULAR HEMOGLOBIN 25.3 pg 25.7-32.2 L (BEAKER) (test code = 751) MEAN CORPUSCULAR HEMOGLOBIN CONC 31.1 GM/DL 32.3-36.5 L (BEAKER) (test code = 752) RED CELL DISTRIBUTION WIDTH 18.6 % 11.6-14.4 H (BEAKER) (test code = 412) PLATELET COUNT (BEAKER) (test 321 K/CU MM 150-450 code = 756) MEAN PLATELET VOLUME (BEAKER) 10.1 fL 9.4-12.4 (test code = 754) NUCLEATED RED BLOOD CELLS 0 /100 WBC 0-0 (BEAKER) (test code = 413) NEUTROPHILS RELATIVE PERCENT 77 % (BEAKER) (test code = 429) LYMPHOCYTES RELATIVE PERCENT 13 % (BEAKER) (test code = 430) MONOCYTES RELATIVE PERCENT 7 % (BEAKER) (test code = 431) EOSINOPHILS RELATIVE PERCENT 0 % (BEAKER) (test code = 432) BASOPHILS RELATIVE PERCENT 0 % (BEAKER) (test code = 437) NEUTROPHILS ABSOLUTE COUNT 12.41 K/ L 1.78-5.38 H (BEAKER) (test code = 670) LYMPHOCYTES ABSOLUTE COUNT 2.14 K/ L 1.32-3.57 (BEAKER) (test code = 414) MONOCYTES ABSOLUTE COUNT (BEAKER) 1.15 K/ L 0.30-0.82 H (test code = 415) EOSINOPHILS ABSOLUTE COUNT 0.07 K/ L 0.04-0.54 (BEAKER) (test code = 416) BASOPHILS ABSOLUTE COUNT (BEAKER) 0.05 K/ L 0.01-0.08 (test code = 417) IMMATURE GRANULOCYTES-RELATIVE 2 % 0-1 H PERCENT (BEAKER) (test code = 2801) HEPATIC FUNCTION [id number] 05:37:52 Test Item Value Reference Range Interpretation Comments TOTAL PROTEIN (BEAKER) (test code = 6.1 gm/dL 6.0-8.3 770) ALBUMIN (BEAKER) (test code = 1145) 3.2 g/dL 3.5-5.0 L BILIRUBIN TOTAL (BEAKER) (test code 0.2 mg/dL 0.2-1.2 = 377) BILIRUBIN DIRECT (BEAKER) (test 0.1 mg/dL 0.1-0.5 code = 706) ALKALINE PHOSPHATASE (BEAKER) (test 51 U/L 40-150 code = 346) AST (SGOT) (BEAKER) (test code = 15 U/L 5-34 353) ALT (SGPT) (BEAKER) (test code = 22 U/L 6-55 347) Benefits Coordinator ID - ALVINA MBASIC METABOLIC [id number] 05:37:51 Test Item Value Reference Range Interpretation Comments SODIUM (BEAKER) 135 meq/L 136-145 L (test code = 381) POTASSIUM 4.2 meq/L 3.5-5.1 (BEAKER) (test code = 379) CHLORIDE (BEAKER) 100 meq/L 98-107 (test code = 382) CO2 (BEAKER) 28 meq/L 22-29 (test code = 355) BLOOD UREA 15 mg/dL 7-21 NITROGEN (BEAKER) (test code = 354) CREATININE 0.66 mg/dL 0.57-1.25 (BEAKER) (test code = 358) GLUCOSE RANDOM 259 mg/dL 70-105 H (BEAKER) (test code = 652) CALCIUM (BEAKER) 9.0 mg/dL 8.4-10.2 (test code = 697) EGFR (BEAKER) 137 Interpretatio n of eGFR (test code = mL/min/1.73 values Stage De scription 1092) sq m Result G1 Kiley l or high >=90 G2 Mildly decreased 60-89 G3a Mild ly to moderately 45-5 9 G3b Moderately to s everely 30-44 G4 Severl y decreased 15-29 G5 Kidney failure <15Reported eGF R is based on the CKD-EPI 2020 equation that d oes not use a race coefficientEsti mated GFR is not as accur ate as Creatinine Kari harrison in predicting glom erular filtration rate . Estimated GFR is not appl icable for dialysis patien ts Benefits Coordinator ID - ALVINA [id number] 05:37:51 Test Item Value Reference Range Interpretation Comments MAGNESIUM (BEAKER) (test code = 1.8 mg/dL 1.6-2.6 627) Benefits Coordinator ID Cherelle TINSLEY MCBC W/PLT COUNT & AUTO [id number] 05:19:35 Test Item Value Reference Range Interpretation Comments WHITE BLOOD CELL COUNT (BEAKER) 19.2 K/ L 3.5-10.5 H (test code = 775) RED BLOOD CELL COUNT (BEAKER) 4.71 M/ L 4.63-6.08 (test code = 761) HEMOGLOBIN (BEAKER) (test code = 11.6 GM/DL 13.7-17.5 L 410) HEMATOCRIT (BEAKER) (test code = 38.2 % 40.1-51.0 L 411) MEAN CORPUSCULAR VOLUME (BEAKER) 81.1 fL 79.0-92.2 (test code = 753) MEAN CORPUSCULAR HEMOGLOBIN 24.6 pg 25.7-32.2 L (BEAKER) (test code = 751) MEAN CORPUSCULAR HEMOGLOBIN CONC 30.4 GM/DL 32.3-36.5 L (BEAKER) (test code = 752) RED CELL DISTRIBUTION WIDTH 18.3 % 11.6-14.4 H (BEAKER) (test code = 412) PLATELET COUNT (BEAKER) (test 342 K/CU MM 150-450 code = 756) MEAN PLATELET VOLUME (BEAKER) 9.6 fL 9.4-12.4 (test code = 754) NUCLEATED RED BLOOD CELLS 0 /100 WBC 0-0 (BEAKER) (test code = 413) NEUTROPHILS RELATIVE PERCENT 83 % (BEAKER) (test code = 429) LYMPHOCYTES RELATIVE PERCENT 9 % (BEAKER) (test code = 430) MONOCYTES RELATIVE PERCENT 6 % (BEAKER) (test code = 431) EOSINOPHILS RELATIVE PERCENT 0 % (BEAKER) (test code = 432) BASOPHILS RELATIVE PERCENT 0 % (BEAKER) (test code = 437) NEUTROPHILS ABSOLUTE COUNT 15.84 K/ L 1.78-5.38 H (BEAKER) (test code = 670) LYMPHOCYTES ABSOLUTE COUNT 1.65 K/ L 1.32-3.57 (BEAKER) (test code = 414) MONOCYTES ABSOLUTE COUNT (BEAKER) 1.08 K/ L 0.30-0.82 H (test code = 415) EOSINOPHILS ABSOLUTE COUNT 0.03 K/ L 0.04-0.54 L (BEAKER) (test code = 416) BASOPHILS ABSOLUTE COUNT (BEAKER) 0.06 K/ L 0.01-0.08 (test code = 417) IMMATURE GRANULOCYTES-RELATIVE 3 % 0-1 H PERCENT (BEAKER) (test code = 2801) WOUND CULTURE + GRAM [id number] 15:11:36 Test Item Value Reference Range Interpretation Comments CULTURE (BEAKER) STACEY A <1+ Stacey albicans (test code = 1095) ALBICANS 5-Flurocytosine See_Comment R [Automated message] (test code = 237) The system which generated this result transmitted ref erence range: Suscepti ble 0-4 , Intermedi ate <0 or >4 , Resista nt >16 . The reference range was not used to interpret this result as normal/abnor mal. Amphotericin B See_Comment [Automated m essage] (test code = 136) The system which generated this result transmitted ref erence range: Suscepti ble >0-0 , No Interpretations Established <=0 or >0 . The reference range was not used to interpret this result as normal/abnor mal. Caspofungin acetate See_Comment S [Automa hernandez message] (test code = 141) The system which generated this result transmitted ref erence range: Suscepti ble 0-0.25 , Non-susceptible <0 or >.25 , Resistan t . The reference r colby was not used to interpret this result as normal/abnor mal. Fluconazole (test See_Comment S [Automate d message] code = 143) The system [employer] generated this result transmitted ref erence range: Suscepti ble 0-2 , Dose Depe ndent Susceptible <0 or >2 , Resi. The ref erence range was not u sed to interpret this result as normal/abnor mal. Itraconazole (test See_Comment S [Automat ed message] code = 146) The system [employer] generated this result transmitted ref erence range: Suscepti ble 0-0.125 , Dose Dependent Susce ptible <0 or >.125. Th e reference range was not used to int erpret this result as normal/abnormal . Micafungin (test See_Comment S [Automated message] code = 148) The system [employer] generated this result transmitted ref erence range: Suscepti ble 0-0.25 , Non-susceptible <0 or >.25 , Resistan t . The reference r colby was not used to interpret this result as normal/abnor mal. Posaconazole (test See_Comment [Automat ed message] code = 152) The system [employer] generated this result transmitted ref erence range: Suscepti ble >0-0 , No Interpretations Established <=0 or >0 . The reference range was not used to interpret this result as normal/abnor mal. Voriconazole (test See_Comment S [Automat ed message] code = 153) The system [employer] generated this result transmitted ref erence range: Suscepti ble 0-0.12 , Dose Dependent Susce ptible <0 or >.12 ,. T he reference range was not used to int erpret this result as normal/abnormal . CULTURE (BEAKER) STACEY A 1+ Stacey glabrata (test code = 1095) GLABRATA 5-Flurocytosine See_Comment S [Automated message] (test code = 237) The system which generated this result transmitted ref erence range: Suscepti ble 0-4 , Intermedi ate <0 or >4 , Resista nt >16 . The reference range was not used to interpret this result as normal/abnor mal. Amphotericin B See_Comment [Automated m essage] (test code = 1362) The syste m which generated this result transmitted ref erence range: Suscepti ble >0-0 , No Interpretations Established <=0 or >0 . The reference range was not used to interpret this result as normal/abnor mal. Caspofungin acetate See_Comment S [Automa hernandez message] (test code = 141) The system which generated this result transmitted ref erence range: Suscepti ble 0-0.12 , Non-susceptible <0 or >.12 , Resistan t . The reference r colby was not used to interpret this result as normal/abnor mal. Fluconazole (test See_Comment [Automate d message] code = 143) The system [employer] generated this result transmitted ref erence range: Suscepti ble 0-0 , Dose Depe ndent Susceptible <0 or >0 , Resi. The ref erence range was not u sed to interpret this result as normal/abnor mal. Itraconazole (test See_Comment [Automat ed message] code = 146) The system [employer] generated this result transmitted ref erence range: Suscepti ble 0-0.125 , Dose Dependent Susce ptible <0 or >.125. Th e reference range was not used to int erpret this result as normal/abnormal . Micafungin (test See_Comment S [Automated message] code = 148) The system [employer] generated this result transmitted ref erence range: Suscepti ble 0-0.06 , Non-susceptible <0 or >.06 , Resistan t . The reference r colby was not used to interpret this result as normal/abnor mal. Posaconazole (test See_Comment [Automat ed message] code = 1522) The system [employer] generated this result transmitted ref erence range: Suscepti ble >0-0 , No Interpretations Established <=0 or >0 . The reference range was not used to interpret this result as normal/abnor mal. Voriconazole (test See_Comment [Automat ed message] code = 153) The system [employer] generated this result transmitted ref erence range: Suscepti ble >0-0 , Dose Dep endent Susceptible <=0 or >0 , No. The refer ence range was not u sed to interpret this result as normal/abnor mal. GRAM STAIN RESULT 4+ WBCs (BEAKER) (test code = 1123) GRAM STAIN RESULT <1+ budding (BEAKER) (test code yeast = [id number]) [id number] 13:41:55 Test Item Value Reference Range Interpretation Comments MAGNESIUM (BEAKER) 1.6 mg/dL 1.6-2.6 Specimen slightly (test code = 627) hemolyzed Benefits Coordinator ID - BSBASIC METABOLIC [id number] 13:41:55 Test Item Value Reference Range Interpretation Comments SODIUM (BEAKER) 136 meq/L 136-145 (test code = 381) POTASSIUM 4.0 meq/L 3.5-5.1 Specimen slight ly (BEAKER) (test hemolyzed code = 379) CHLORIDE (BEAKER) 100 meq/L 98-107 (test code = 382) CO2 (BEAKER) 23 meq/L 22-29 (test code = 355) BLOOD UREA 15 mg/dL 7-21 NITROGEN (BEAKER) (test code = 354) CREATININE 0.70 mg/dL 0.57-1.25 Specimen slight ly (BEAKER) (test hemolyzed code = 358) GLUCOSE RANDOM 256 mg/dL 70-105 H (BEAKER) (test code = 652) CALCIUM (BEAKER) 8.9 mg/dL 8.4-10.2 (test code = 697) EGFR (BEAKER) 135 Interpretatio n of eGFR (test code = mL/min/1.73 values Stage De scription 1092) sq m Result G1 Kiley l or high >=90 G2 Mildly decreased 60-89 G3a Mildl y to moderately 45-5 9 G3b Moderately to s everely 30-44 G4 Severl y decreased 15-29 G5 Kidney failure <15Reported eGF R is based on the CKD-EPI 2020 equation that d oes not use a race coefficientEsti mated GFR is not as accur ate as Creatinine Kari harrison in predicting glom erular filtration rate . Estimated GFR is not appl icable for dialysis patien ts Benefits Coordinator ID - BSCBC (HEMOGRAM ONLY)2021-12-15 12:10:46 Test Item Value Reference Range Interpretation Comments WHITE BLOOD CELL COUNT (BEAKER) 18.7 K/ L 3.5-10.5 H (test code = 775) RED BLOOD CELL COUNT (BEAKER) 4.80 M/ L 4.63-6.08 (test code = 761) HEMOGLOBIN (BEAKER) (test code = 12.2 GM/DL 13.7-17.5 L 410) HEMATOCRIT (BEAKER) (test code = 39.4 % 40.1-51.0 L 411) MEAN CORPUSCULAR VOLUME (BEAKER) 82.1 fL 79.0-92.2 (test code = 753) MEAN CORPUSCULAR HEMOGLOBIN 25.4 pg 25.7-32.2 L (BEAKER) (test code = 751) MEAN CORPUSCULAR HEMOGLOBIN CONC 31.0 GM/DL 32.3-36.5 L (BEAKER) (test code = 752) RED CELL DISTRIBUTION WIDTH 18.4 % 11.6-14.4 H (BEAKER) (test code = 412) PLATELET COUNT (BEAKER) (test 412 K/CU MM 150-450 code = 756) MEAN PLATELET VOLUME (BEAKER) 10.2 fL 9.4-12.4 (test code = 754) NUCLEATED RED BLOOD CELLS 0 /100 WBC 0-0 (BEAKER) (test code = 413) RAD, CHEST, 1 VIEW, NON [id number] 11:09:00Reason for exam:->PICC tip location verification.Should this be performed at the bedside?->Yes [facility] 2000 Sex: MFINAL REPORT CLINICAL HISTORY:PICC tip location verification. TECHNIQUE: 1 view of thechest. COMPARISON: 09/28/2021 IMPRESSION: The tip of the right PICC line is at the cavoatrial junction. There are no focal infiltrates or effusions. The cardiomediastinal silhouette is within normal limits for size. Signed: Darcie Williamson Verified Date/Time: 12/15/2021 11:09:16 Reading Location: [facility] Radiology Reading Room [id number] 07:04:44 Test Item Value Reference Range Interpretation Comments MAGNESIUM (BEAKER) (test code = 1.8 mg/dL 1.6-2.6 627) Benefits Coordinator ID - SHREE T, [id number] 13:51:00Unlisted Reason for Exam - Click Yes and Enter Reason Below->NoIs this for enterography?->NoWill this procedure require oral contrast?->No [facility] : 2000 Sex: MFINAL REPORT EXAMINATION: CT, ABDOMEN \\T\\ PELVIS, WITH IV CONTRAST. INDICATION: 21-year-old male with concern for abdominal infection. COMPARISON: CT abdomen and pelvis dated 12/10/2021, 10/01/2021, 09/10/2021, 09/04/2021. MRI abdomen dated 08/27/2021. TECHNIQUE:Helical CT imaging of the abdomen and pelvis was performed from the diaphragms to the pubic symphysis after the administration of intravenous contrast material. Multiplanar reformats were performed by a technologist. One or more of the following dose reduction techniques were used:*Automated exposure control*Adjustment of the mA and/ or kV according to patient size*Use of iterative reconstruction technique Total DLP (mGy-cm): 594Intravenous contrast: Not documented DICOM format image data are available to non-affiliated external healthcare facilities or entities on a secure, media free, reciprocally searchable basis with patientauthorization for at least a 12 month period after the study. FINDINGS: LOWER CHEST: The visualized heart is unremarkable. Lung bases are clear of consolidation. No pleural effusion. LIVER: Mild diffuse hepatic steatosis. No focal hepatic lesions. Portal and hepatic veins are patent. BILIARY SYSTEM: Gallbladder appears normal. No evidence of intrahepatic or extrahepatic biliary dilation. SPLEEN: Spleen is of normal size. Calcified granulomas are noted. PANCREAS: Postsurgical changes status post surgical debridement of peripancreatic fluid collections; a small amount of residual fluid is noted at the pancreatic tail tracking superiorly in the gastrosplenic ligament under the left hemidiaphragm, measuring approximately 5.2 x 7.1 x 6.1 cm, similar to prior examination. A surgical drain is noted entering the right lower quadrant of the abdomen, extending across the ventral aspect of the pancreatic head and body. A second surgical drain is noted entering the left lower quadrant of the abdomen, extend ing into the left paracolic gutter. A percutaneous pigtail drainage catheter is noted draining a small fluid collection along the hepatic tip, measuring approximately 1.3 x 6.0 x 1.9 cm, slightly decreased in size from prior examination. ADRENALS: No focal adrenal lesions. URINARY SYSTEM: Kidneys are g rossly symmetric. No focal renal lesions. No hydronephrosis or hydroureter. Bladder is unremarkable.REPRODUCTIVE SYSTEM: Reproductive organs are unremarkable. GASTROINTESTINAL SYSTEM: Stomach is unremarkable. Small bowel is normal in caliber. Colon is unremarkable. VASCULAR: Abdominal aorta is of normal course and caliber. No significant calcified atherosclerotic disease. LYMPHATICS: No pathologic lymphadenopathy. PERITONEUM: No ascites. SOFT TISSUES/ BONES: Soft tissues are unremarkable. Mild degenerative changes of the visualized spine. No aggressive osseous lesions. IMPRESSION:1.Postsurgical leslie nges status post surgical debridement of peripancreatic fluid collections; a small amount of residual fluid is noted at the pancreatic tail tracking superiorly in the gastrosplenic ligament under the left hemidiaphragm, similar to prior examination.2.Interval placement of a percutaneous pigtail drainage catheter in a small fluid collection along the hepatic tip, slightly decreased in size from prior examination.3.Mild diffuse hepatic steatosis. Signed: Robert Figueroa MDReport Verified Date/Time: 12/14/2021 13:51:31 Reading Location: [facility] Diagnostic Imaging Reading Room - [place] [id number] ANTI-DNA [id number] 12:28:11 Test Item Value Reference Range Interpretation Comments ANTI-DNA TITER (BEAKER) (test code = :80 1553) DOUBLE-STRANDED DNA (DSDNA) [id number] 12:27:59 Test Item Value Reference Range Interpretation Comments ANTI-DNA DS (BEAKER) (test code = Positive Negative 1055) CBC W/PLT COUNT & AUTO [id number] 06:03:24 Test Item Value Reference Range Interpretation Comments WHITE BLOOD CELL COUNT (BEAKER) 18.0 K/ L 3.5-10.5 H (test code = 775) RED BLOOD CELL COUNT (BEAKER) 5.04 M/ L 4.63-6.08 (test code = 761) HEMOGLOBIN (BEAKER) (test code = 12.4 GM/DL 13.7-17.5 L 410) HEMATOCRIT (BEAKER) (test code = 40.6 % 40.1-51.0 411) MEAN CORPUSCULAR VOLUME (BEAKER) 80.6 fL 79.0-92.2 (test code = 753) MEAN CORPUSCULAR HEMOGLOBIN 24.6 pg 25.7-32.2 L (BEAKER) (test code = 751) MEAN CORPUSCULAR HEMOGLOBIN CONC 30.5 GM/DL 32.3-36.5 L (BEAKER) (test code = 752) RED CELL DISTRIBUTION WIDTH 17.7 % 11.6-14.4 H (BEAKER) (test code = 412) PLATELET COUNT (BEAKER) (test 381 K/CU MM 150-450 code = 756) MEAN PLATELET VOLUME (BEAKER) 11.1 fL 9.4-12.4 (test code = 754) NUCLEATED RED BLOOD CELLS 0 /100 WBC 0-0 (BEAKER) (test code = 413) NEUTROPHILS RELATIVE PERCENT 76 % (BEAKER) (test code = 429) LYMPHOCYTES RELATIVE PERCENT 13 % (BEAKER) (test code = 430) MONOCYTES RELATIVE PERCENT 7 % (BEAKER) (test code = 431) EOSINOPHILS RELATIVE PERCENT 0 % (BEAKER) (test code = 432) BASOPHILS RELATIVE PERCENT 1 % (BEAKER) (test code = 437) NEUTROPHILS ABSOLUTE COUNT 13.72 K/ L 1.78-5.38 H (BEAKER) (test code = 670) LYMPHOCYTES ABSOLUTE COUNT 2.31 K/ L 1.32-3.57 (BEAKER) (test code = 414) MONOCYTES ABSOLUTE COUNT (BEAKER) 1.16 K/ L 0.30-0.82 H (test code = 415) EOSINOPHILS ABSOLUTE COUNT 0.07 K/ L 0.04-0.54 (BEAKER) (test code = 416) BASOPHILS ABSOLUTE COUNT (BEAKER) 0.09 K/ L 0.01-0.08 H (test code = 417) IMMATURE GRANULOCYTES-RELATIVE 4 % 0-1 H PERCENT (BEAKER) (test code = 2801) CT, DRAINAGE W/ CATH [id number] 12:21:00Reason for exam:->undrained fluid collections in abdomen [facility] : 2000 Sex: MFINAL REPORT CT guided drainage catheter placement, 12/11/2021 Clinical History: Right-sided abdominal fluid collection. Modality: CT. Red Mud Thickener Operator: Shira. Credit Processor: None. Sedation: Versed 1 mg and fentanyl 50 mcg was given intravenously for moderate sedation. The patient's vital signs were monitored throughout the procedure and recorded to the patient's medical record by the nurse.Total intra-service time of sedation was 20 minutes. Estimated Blood Loss: Less than 1 ml. Technique: After informed consent was obtained, which included the risks of bleeding, infection, injury to adjacent structures/bowel, adverse medication reaction, the patient's abdomen was scanned, after reviewing the previous CT from 12/10/2021. This exam was performed according to our departmental dose-optimization program which includes automated exposure control, adjustment of the mA and/or kV according to patient size and/or use of iterative reconstruction technique. The fluid collection in the right abdomen was localized. After the skin was prepped and draped in the usual sterile manner, and local anesthesia was achieved with 1% lidocaine, a 5 Serbian one-step catheter was advanced into the fluid collection under CT guidance. Aspiration was attempted through this catheter, but only a small amount of fluid could be obtained. After a small skin incision was made, a guidewire was advanced into the fluidcollection. Subsequently, a soft tissue tract was created with 8 Serbian dilator. After the tract wasdilated, an 8 Serbian all-purpose drainage catheter was placed into the fluid collection. The wire was then removed, and the pigtail of the catheter was locked. Approximately 8 cc of thick purulent fluid was drained. The fluid was sent for laboratory analysis. Evaluation of the area after the procedurereveals the catheter pigtail to terminate within the collection, which has decreased in size. The catheter was then secured onto the skin with suture. A BRODY bulb was attached to the catheter, to drain via suction. The patient tolerated the procedure well, without immediate complications. The patient's vital signs remained stable throughout the procedure. Patient disposition: The patient was dischargedfrom the department in stable condition. Impression: Successful and uncomplicated CT guided drainagecatheter placement into right abdominal fluid collection, with conscious sedation. Signed: Juaquin Oliva Verified Date/Time: 12/13/2021 12:21:52 Reading Location: [facility] Mammo Reading Room BASI METABOLIC [id number] 08:39:36 Test Item Value Reference Range Interpretation Comments SODIUM (BEAKER) 136 meq/L 136-145 (test code = 381) POTASSIUM (BEAKER) 3.4 meq/L 3.5-5.1 L (test code = 379) CHLORIDE (BEAKER) 100 meq/L 98-107 (test code = 382) CO2 (BEAKER) (test 27 meq/L 22-29 code = 355) BLOOD UREA NITROGEN 11 mg/dL 7-21 (BEAKER) (test code = 354) CREATININE (BEAKER) 0.65 mg/dL 0.57-1.25 (test code = 358) GLUCOSE RANDOM 133 mg/dL 70-105 H (BEAKER) (test code = 652) CALCIUM (BEAKER) 8.3 mg/dL 8.4-10.2 L (test code = 697) EGFR (BEAKER) (test 157 mL/min/1.73 ESTIM ATED GFR IS code = 1092) sq m NOT ACCURATE CREATININE CLEARANCE IN PREDICTING GLOMERULAR FILTRATION RATE . ESTIMATED GFR I S NOT APPLICABLE FOR DIALYSIS PATIEN TS. Benefits Coordinator ID - [id number] 08:39:36 Test Item Value Reference Range Interpretation Comments MAGNESIUM (BEAKER) (test code = 1.7 mg/dL 1.6-2.6 627) Benefits Coordinator ID - BSPOC-Glucose [id number] 07:42:54 Test Item Value Reference Range Interpretation Comments POC-Glucose Meter (test 128 mg/dL 70-110 H : TE STED AT [facility] code = 1538) [address] [facility], [address] 30: Benefits Coordinator/Techni dakota ID = [id number] for [facility] Lab Interpretation (test Abnormal code = 15395-2) [facility] [id number] 07:42:54 Test Item Value Reference Range Interpretation Comments POC-GLUCOSE METER 128 mg/dL 70-110 H : TESTED A T [facility] 6720 (BEAKER) (test code = [place] [facility], 1538) [address]: Benefits Coordinator/Techni dakota ID = [id number] for [facility]ONEYCUTT BLOOD [id number] 15:01:19 Test Item Value Reference Range Interpretation Comments CULTURE (BEAKER) (test No growth in 5 days code = 1095) BLOOD [id number] 15:01:19 Test Item Value Reference Range Interpretation Comments CULTURE (BEAKER) (test No growth in 5 days code = 1095) The specimen volume collected for this blood culture was below the optimum (10 mL per bottle or 20 mL total). Use of lower volumes may adversely affect recovery and/or detection times of some organisms.MISCELLANEOUS LAB ORDER 2021-12-12 12:27:53 Test Item Value Reference Range Interpretation Comments SCAN RESULT (test code C. di fficile GDH Toxin: = [id number]) NegativeC. diff icile GDH Antigen: Negati veKit Lot: [id number] Date : 08/22/2023 c [id number] 12:27:53Scan ResultComment: C. difficile GDH Toxin: NegativeC. difficile GDH Antigen: Negative Kit Lot: [id number] Date: [facility] 2021-12-12 07:18:15 Test Item Value Reference Range Interpretation Comments SODIUM (BEAKER) 136 meq/L 136-145 (test code = 381) POTASSIUM (BEAKER) 4.0 meq/L 3.5-5.1 Specimen slightly (test code = 379) hemolyzed CHLORIDE (BEAKER) 103 meq/L 98-107 (test code = 382) CO2 (BEAKER) (test 25 meq/L 22-29 code = 355) BLOOD UREA NITROGEN 9 mg/dL 7-21 (BEAKER) (test code = 354) CREATININE (BEAKER) 0.65 mg/dL 0.57-1.25 Specimen slightly (test code = 358) hemolyzed GLUCOSE RANDOM 91 mg/dL 70-105 (BEAKER) (test code = 652) CALCIUM (BEAKER) 8.5 mg/dL 8.4-10.2 (test code = 697) EGFR (BEAKER) (test 157 mL/min/1.73 ESTIM ATED GFR IS code = 1092) sq m NOT ACCURATE CREATININE CLEARANCE IN PREDICTING GLOMERULAR FILTRATION RATE . ESTIMATED GFR I S NOT APPLICABLE FOR DIALYSIS PATIEN TS. Benefits Coordinator ID - SHREE [id number] 07:18:14 Test Item Value Reference Range Interpretation Comments MAGNESIUM (BEAKER) 1.7 mg/dL 1.6-2.6 Specimen slightly (test code = 627) hemolyzed Benefits Coordinator ID Cherelle SWANN WCBC W/PLT COUNT & AUTO [id number] 06:48:11 Test Item Value Reference Range Interpretation Comments WHITE BLOOD CELL COUNT (BEAKER) 9.8 K/ L 3.5-10.5 (test code = 775) RED BLOOD CELL COUNT (BEAKER) 4.97 M/ L 4.63-6.08 (test code = 761) HEMOGLOBIN (BEAKER) (test code = 12.3 GM/DL 13.7-17.5 L 410) HEMATOCRIT (BEAKER) (test code = 40.5 % 40.1-51.0 411) MEAN CORPUSCULAR VOLUME (BEAKER) 81.5 fL 79.0-92.2 (test code = 753) MEAN CORPUSCULAR HEMOGLOBIN 24.7 pg 25.7-32.2 L (BEAKER) (test code = 751) MEAN CORPUSCULAR HEMOGLOBIN CONC 30.4 GM/DL 32.3-36.5 L (BEAKER) (test code = 752) RED CELL DISTRIBUTION WIDTH 17.4 % 11.6-14.4 H (BEAKER) (test code = 412) PLATELET COUNT (BEAKER) (test 229 K/CU MM 150-450 code = 756) MEAN PLATELET VOLUME (BEAKER) 11.1 fL 9.4-12.4 (test code = 754) NUCLEATED RED BLOOD CELLS 0 /100 WBC 0-0 (BEAKER) (test code = 413) NEUTROPHILS RELATIVE PERCENT 72 % (BEAKER) (test code = 429) LYMPHOCYTES RELATIVE PERCENT 18 % (BEAKER) (test code = 430) MONOCYTES RELATIVE PERCENT 8 % (BEAKER) (test code = 431) EOSINOPHILS RELATIVE PERCENT 0 % (BEAKER) (test code = 432) BASOPHILS RELATIVE PERCENT 1 % (BEAKER) (test code = 437) NEUTROPHILS ABSOLUTE COUNT 7.03 K/ L 1.78-5.38 H (BEAKER) (test code = 670) LYMPHOCYTES ABSOLUTE COUNT 1.80 K/ L 1.32-3.57 (BEAKER) (test code = 414) MONOCYTES ABSOLUTE COUNT (BEAKER) 0.74 K/ L 0.30-0.82 (test code = 415) EOSINOPHILS ABSOLUTE COUNT 0.03 K/ L 0.04-0.54 L (BEAKER) (test code = 416) BASOPHILS ABSOLUTE COUNT (BEAKER) 0.05 K/ L 0.01-0.08 (test code = 417) IMMATURE GRANULOCYTES-RELATIVE 2 % 0-1 H PERCENT (BEAKER) (test code = 2801) SARS-COV2/RT-PCR ([facility])2021-12-11 08:51:50 Test Item Value Reference Range Interpretation Comments SARS-COV2/RT-PCR (test Negative Not Detected, Negative, code = 2450757) See external report for linked test SARS-COV-2 PERFORMING LAB [facility] (test code = 7838858) Negative result for this test determines that [...] justifying the authorization of the emergency use ofin vitro diagnostic tests for detection and/or diagnosis of COVID-19 is terminated under Section 564(b)(2) of the Act or the EUA is revoked under Section 564(g) of the Act.Fact Sheet for Healthcare Prov iders:https://www.[employer]/sites/default/files/product/documents/Fact_Sheet_HC _Upmxwutbu_Tyku_TATA-UgM-9.pdfFact Sheet for Healthcare Patients:https://www.[employer]/sites/default/files/product/docume nts/Yfuw_Utugc_Ymvwauzv_Mujd_DKZW-DdV-2.pdfPerforming Laboratory:[facility], [place] [address]DBRVW METABOLIC PANEL 2021-12-11 07:32:42 Test Item Value Reference Range Interpretation Comments SODIUM (BEAKER) 139 meq/L 136-145 (test code = 381) POTASSIUM (BEAKER) 3.7 meq/L 3.5-5.1 (test code = 379) CHLORIDE (BEAKER) 103 meq/L 98-107 (test code = 382) CO2 (BEAKER) (test 29 meq/L 22-29 code = 355) BLOOD UREA NITROGEN 6 mg/dL 7-21 L (BEAKER) (test code = 354) CREATININE (BEAKER) 0.59 mg/dL 0.57-1.25 (test code = 358) GLUCOSE RANDOM 84 mg/dL 70-105 (BEAKER) (test code = 652) CALCIUM (BEAKER) 8.4 mg/dL 8.4-10.2 (test code = 697) EGFR (BEAKER) (test 175 mL/min/1.73 ESTIM ATED GFR IS code = 1092) sq m NOT ACCURATE CREATININE CLEARANCE IN PREDICTING GLOMERULAR FILTRATION RATE . ESTIMATED GFR I S NOT APPLICABLE FOR DIALYSIS PATIEN TS. Benefits Coordinator ID - MARIBEL [id number] 07:32:42 Test Item Value Reference Range Interpretation Comments MAGNESIUM (BEAKER) (test code = 1.7 mg/dL 1.6-2.6 627) Benefits Coordinator ID - MARIBEL LCT, [id number] 13:47:00Unlisted Reason for Exam - Click Yes and Enter Reason Below->NoIs this for enterography?->NoWill this procedure require oral contrast?->No [facility] CENTERName: VANGIE OVALLE : 2000 Sex: MFINALREPORT TECHNIQUE: CT of the abdomen and pelvis WITH intravenous contrast and WITHOUT oral contrast. Dose modulation, iterative reconstruction, and/or weight-based adjustment of themA/kV was utilized to reduce the radiation dose to as low as reasonably achievable. INDICATION: Abdominal abscess/infection suspected. COMPARISON: CT abdomen and pelvis 09/27/2021. FINDINGS: LOWER THORAX: Tiny bilateral pleural effusions with associated compressive atelectatic changes. HEPATOBILIARY: Fatty infiltration of liver. No focal hepatic lesion. Tract in appearance of the gallbladder. Small amount of pericholecystic fluid. No abnormal biliary ductal dilatation.SPLEEN: Calcified granulomata are present within the spleen. No splenomegaly.ADRENALS: No adrenal nodules. PANCREAS: No focal masses or ductal dilatation. Significant improvement in peripancreatic stranding/fluid. Surgical drain extends along the ventral caudal aspect of the head, neck and proximal body of the pancreas. There is an additional surgical drain along the left paracolic gutter. Residual phlegmonous change. Immature collection containing locules of gas along the gastrosplenic ligament measuring approximately 6.9 x 5.4 x 6.2 cm.LYMPH NODES: No lymphadenopathy.KIDNEYS/URETERS: No hydronephrosis, stones, or masses.PELVIC OR NADIA/BLADDER: Unremarkable. VESSELS: Unremarkable.PERITONEUM/RETROPERITONEUM: No free air or fluid. GI TRACT: No distention or wall thickening. BONES AND SOFT TISSUES: Unremarkable. IMPRESSION: 1. There has been interval surgical debridement of peripancreatic collections with surgical drain along the v entral/caudal aspect of the pancreas and along the left paracolic gutter with significant interval improvement in peripancreatic inflammatory changes/stranding. Along the gastrosplenic ligament there is an area of phlegmonous change/developing collection measuring 6.9 x 5.4 x 6.2 cm containing a few small locules of gas.2. Tiny bilateral effusions, new since the prior examination.3. Fatty infiltration of the liver. Signed: Andrés Holloway MDReport Verified Date/Time: 12/10/2021 13:47:19 [id number] 08:22:12 Test Item Value Reference Range Interpretation Comments MAGNESIUM (BEAKER) (test code = 1.5 mg/dL 1.6-2.6 L 627) Benefits Coordinator ID Cherelle SWANN WBASIC METABOLIC [id number] 08:22:11 Test Item Value Reference Range Interpretation Comments SODIUM (BEAKER) 139 meq/L 136-145 (test code = 381) POTASSIUM (BEAKER) 4.1 meq/L 3.5-5.1 (test code = 379) CHLORIDE (BEAKER) 107 meq/L 98-107 (test code = 382) CO2 (BEAKER) (test 27 meq/L 22-29 code = 355) BLOOD UREA NITROGEN 6 mg/dL 7-21 L (BEAKER) (test code = 354) CREATININE (BEAKER) 0.65 mg/dL 0.57-1.25 (test code = 358) GLUCOSE RANDOM 133 mg/dL 70-105 H (BEAKER) (test code = 652) CALCIUM (BEAKER) 8.2 mg/dL 8.4-10.2 L (test code = 697) EGFR (BEAKER) (test 157 mL/min/1.73 ESTIM ATED GFR IS code = 1092) sq m NOT ACCURATE CREATININE CLEARANCE IN PREDICTING GLOMERULAR FILTRATION RATE . ESTIMATED GFR I S NOT APPLICABLE FOR DIALYSIS PATIEN TS. Benefits Coordinator ID Cherelle SWANN WCBC W/PLT COUNT & AUTO [id number] 05:53:31 Test Item Value Reference Range Interpretation Comments WHITE BLOOD CELL COUNT (BEAKER) 9.7 K/ L 3.5-10.5 (test code = 775) RED BLOOD CELL COUNT (BEAKER) 4.55 M/ L 4.63-6.08 L (test code = 761) HEMOGLOBIN (BEAKER) (test code = 11.2 GM/DL 13.7-17.5 L 410) HEMATOCRIT (BEAKER) (test code = 37.4 % 40.1-51.0 L 411) MEAN CORPUSCULAR VOLUME (BEAKER) 82.2 fL 79.0-92.2 (test code = 753) MEAN CORPUSCULAR HEMOGLOBIN 24.6 pg 25.7-32.2 L (BEAKER) (test code = 751) MEAN CORPUSCULAR HEMOGLOBIN CONC 29.9 GM/DL 32.3-36.5 L (BEAKER) (test code = 752) RED CELL DISTRIBUTION WIDTH 16.8 % 11.6-14.4 H (BEAKER) (test code = 412) PLATELET COUNT (BEAKER) (test 299 K/CU MM 150-450 code = 756) MEAN PLATELET VOLUME (BEAKER) 11.8 fL 9.4-12.4 (test code = 754) NUCLEATED RED BLOOD CELLS 0 /100 WBC 0-0 (BEAKER) (test code = 413) NEUTROPHILS RELATIVE PERCENT 78 % (BEAKER) (test code = 429) LYMPHOCYTES RELATIVE PERCENT 16 % (BEAKER) (test code = 430) MONOCYTES RELATIVE PERCENT 6 % (BEAKER) (test code = 431) EOSINOPHILS RELATIVE PERCENT 0 % (BEAKER) (test code = 432) BASOPHILS RELATIVE PERCENT 0 % (BEAKER) (test code = 437) NEUTROPHILS ABSOLUTE COUNT 7.53 K/ L 1.78-5.38 H (BEAKER) (test code = 670) LYMPHOCYTES ABSOLUTE COUNT 1.51 K/ L 1.32-3.57 (BEAKER) (test code = 414) MONOCYTES ABSOLUTE COUNT (BEAKER) 0.53 K/ L 0.30-0.82 (test code = 415) EOSINOPHILS ABSOLUTE COUNT 0.00 K/ L 0.04-0.54 L (BEAKER) (test code = 416) BASOPHILS ABSOLUTE COUNT (BEAKER) 0.01 K/ L 0.01-0.08 (test code = 417) IMMATURE GRANULOCYTES-RELATIVE 1 % 0-1 PERCENT (BEAKER) (test code = 2801) [id number] 05:50:23 Test Item Value Reference Range Interpretation Comments MAGNESIUM (BEAKER) (test code = 1.8 mg/dL 1.6-2.6 627) Benefits Coordinator ID - BISI GBASIC METABOLIC [id number] 05:50:22 Test Item Value Reference Range Interpretation Comments SODIUM (BEAKER) 140 meq/L 136-145 (test code = 381) POTASSIUM (BEAKER) 3.7 meq/L 3.5-5.1 (test code = 379) CHLORIDE (BEAKER) 105 meq/L 98-107 (test code = 382) CO2 (BEAKER) (test 28 meq/L 22-29 code = 355) BLOOD UREA NITROGEN 5 mg/dL 7-21 L (BEAKER) (test code = 354) CREATININE (BEAKER) 0.69 mg/dL 0.57-1.25 (test code = 358) GLUCOSE RANDOM 117 mg/dL 70-105 H (BEAKER) (test code = 652) CALCIUM (BEAKER) 8.3 mg/dL 8.4-10.2 L (test code = 697) EGFR (BEAKER) (test 146 mL/min/1.73 ESTIM ATED GFR IS code = 1092) sq m NOT ACCURATE CREATININE CLEARANCE IN PREDICTING GLOMERULAR FILTRATION RATE . ESTIMATED GFR I S NOT APPLICABLE FOR DIALYSIS PATIEN TS. Benefits Coordinator ID Cherelle MATHEWS GCOMPLEMENT COMPONENT [id number] 05:47:38 Test Item Value Reference Range Interpretation Comments C3 COMPLEMENT (BEAKER) (test code = 34 mg/dL 82-193 L 393) Benefits Coordinator ID Cherelle LÓPEZ LCOMPLEMENT COMPONENT [id number] 05:47:37 Test Item Value Reference Range Interpretation Comments C4 COMPLEMENT (BEAKER) (test code = 6 mg/dL 15-57 L 394) Benefits Coordinator ID Cherelle LÓPEZ LPROTHROMBIN TIME/[id number] 05:32:34 Test Item Value Reference Range Interpretation Comments PROTIME (BEAKER) 16.8 seconds 11.9-14.2 H (test code = 759) INR (BEAKER) (test 1.39 See_Comment [Automat ed message] code = 370) The system [employer] generated this result transmitted ref erence range: <=5.90. The reference range was not used to int erpret this result as normal/abnormal . RECOMMENDED COUMADIN/WARFARIN INR THERAPY RANGESSTANDARD DOSE: 2.0 - 3.0 Includes: PROPHYLAXIS for venous thrombosis, systemic embolization; TREATMENT for venous thrombosis and/or pulmonary embolus.HIGH RISK: Target INR is 2.5-3.5 for patients with mechanical heart valves.Urinalysis w/[id number] 00:48:22 Test Item Value Reference Range Interpretation Comments Color, UA (test code Yellow = 5778-6) Clarity, UA (test Clear code = 5767-9) Specific [place], UA 1.023 1.001-1.035 (test code = 5811-5) pH, UA (test code = 6.5 5.0-8.0 5803-2) Protein, UA (test Negative Negative code = 87236-5) Glucose, UA (test 50 mg/dL Negative A code = 365) Ketones, UA (test Trace Negative A code = 2514-8) Bilirubin, UA (test Negative Negative code = 94278-5) Blood, UA (test code Negative Negative = 81273-2) Nitrite, UA (test Negative Negative code = 5802-4) Leukocytes, UA (test Trace Negative A code = 5799-2) Urobilinogen, UA 0.2 mg/dL 0.2-1.0 (test code = 40198-6) RBC, UA (test code = 2 See_Comment [Autom ated 84673-8) message] The system which generated this result transmitted reference range : /HPF. The reference range was not used to interpret this result as normal/abnormal . WBC, UA (test code = 4 See_Comment [Autom ated 5821-4) message] The system which generated this result transmitted reference range : /HPF. The reference range was not used to interpret this result as normal/abnormal . Bacteria, UA (test Moderate code = 60855-2) Mucus (test code = Occasional 8247-9) Hyaline Casts, UA 4 See_Comment [Automate d (test code = 52367-0) messag e] The system which generated this result transmitted reference range : /LPF. The reference range was not used to interpret this result as normal/abnormal . Crystals, Urine (test None Seen code = 12835-2) Specimen Source (test code = 2795) IDALIA (test code = IDALIA) Benefits Coordinator ID - [auto]Benefits Coordinator ID - tech Lab Interpretation Abnormal (test code = 00704-0) [facility]/ [id number] 00:48:22 Test Item Value Reference Range Interpretation Comments COLOR (BEAKER) (test code = 470) Yellow CLARITY (BEAKER) (test code = 469) Clear SPECIFIC GRAVITY UA (BEAKER) (test 1.023 1.001-1.035 code = 468) PH UA (BEAKER) (test code = 467) 6.5 5.0-8.0 PROTEIN UA (BEAKER) (test code = Negative Negative 464) GLUCOSE UA (BEAKER) (test code = 50 mg/dL Negative A 365) KETONES UA (BEAKER) (test code = Trace Negative A 371) BILIRUBIN UA (BEAKER) (test code = Negative Negative 462) BLOOD UA (BEAKER) (test code = Negative Negative 461) NITRITE UA (BEAKER) (test code = Negative Negative 465) LEUKOCYTE ESTERASE UA (BEAKER) Trace Negative A (test code = 466) UROBILINOGEN UA (BEAKER) (test 0.2 mg/dL 0.2-1.0 code = 463) RBC UA (BEAKER) (test code = 519) 2 /HPF WBC UA (BEAKER) (test code = 520) 4 /HPF BACTERIA (BEAKER) (test code = Moderate 517) MUCUS (BEAKER) (test code = 1574) Occasional HYALINE CASTS (BEAKER) (test code 4 /LPF = 514) CRYSTALS, URINE (BEAKER) (test None Seen code = 1521) SOURCE(BEAKER) (test code = 2795) Benefits Coordinator ID - [auto]Benefits Coordinator ID - techProtein, random [id number] 23:18:26 Test Item Value Reference Range Interpretation Comments Protein, Urine (test code 21 mg/dL 0-14 H = 2888-6) IDALIA (test code = IDALIA) Benefits Coordinator ID - MARIBEL L Lab Interpretation (test Abnormal code = 20127-0) [facility] CenterPROTE[facility], RANDOM [id number] 23:18:26 Test Item Value Reference Range Interpretation Comments PROTEIN, URINE (BEAKER) (test code = 21 mg/dL 0-14 H 1569) Benefits Coordinator ID - MARIBEL LCreatinine, random [id number] 23:18:25 Test Item Value Reference Range Interpretation Comments Creatinine, Ur 99.7 mg/dL (test code = 2161-8) IDALIA (test code = Reference Range: No IDALIA) NormalsOperator ID - MARIBEL Inman [facility]OM [id number] 23:18:25 Test Item Value Reference Range Interpretation Comments CREATININE URINE (BEAKER) (test 99.7 mg/dL code = 375) Reference Range: No NormalsOperator ID - MARIBEL LPOCT-GLUCOSE [id number] 10:32:21 Test Item Value Reference Range Interpretation Comments POC-GLUCOSE METER 110 mg/dL 70-110 : TESTED A T [facility] 6720 (BEAKER) (test code = [place], 1538) [address]: Benefits Coordinator/Techni dakota ID = [id number] for [facility] HONEYCUTT HEMOGLOBIN [id number] 10:26:45 Test Item Value Reference Range Interpretation Comments HEMOGLOBIN A1C 5.3 % See_Comment [Automated m essage] ELECTROPHORESIS (BEAKER) The system which (test code = 3811) generated this result transmitted ref erence range: <=5.6%. The reference range was not used to int erpret this result as normal/abnormal . "The A1c is measured using a NGSP-certified method. HbA1c value equal to or greater than 6.5% as thediagnosis cutoff for diabetes. An HbA1c value of 5.7- 6.4% indicates increased risk for diabetes (prediabetes)."Benefits Coordinator ID - ADM HEPATIC FUNCTION [id number] 10:19:31 Test Item Value Reference Range Interpretation Comments TOTAL PROTEIN (BEAKER) 5.9 gm/dL 6.0-8.3 L Speci men slightly (test code = 770) hemolyzed ALBUMIN (BEAKER) (test 2.5 g/dL 3.5-5.0 L Speci men slightly code = 1145) hemolyzed BILIRUBIN TOTAL 0.3 mg/dL 0.2-1.2 Specimen sli ghtly (BEAKER) (test code = hemoly zed 377) BILIRUBIN DIRECT 0.2 mg/dL 0.1-0.5 Specimen sl ightly (BEAKER) (test code = hemoly zed 706) ALKALINE PHOSPHATASE 78 U/L 40-150 (BEAKER) (test code = 346) AST (SGOT) (BEAKER) 34 U/L 5-34 Specimen slightly (test code = 353) hemolyzed ALT (SGPT) (BEAKER) 14 U/L 6-55 Specimen slightly (test code = 347) hemolyzed Benefits Coordinator ID - MARIBEL LBASIC METABOLIC [id number] 10:19:30 Test Item Value Reference Range Interpretation Comments SODIUM (BEAKER) 135 meq/L 136-145 L (test code = 381) POTASSIUM (BEAKER) 3.8 meq/L 3.5-5.1 Specimen slightly (test code = 379) hemolyzed CHLORIDE (BEAKER) 102 meq/L 98-107 (test code = 382) CO2 (BEAKER) (test 20 meq/L 22-29 L code = 355) BLOOD UREA NITROGEN 4 mg/dL 7-21 L (BEAKER) (test code = 354) CREATININE (BEAKER) 0.65 mg/dL 0.57-1.25 Specimen slightly (test code = 358) hemolyzed GLUCOSE RANDOM 177 mg/dL 70-105 H (BEAKER) (test code = 652) CALCIUM (BEAKER) 8.1 mg/dL 8.4-10.2 L (test code = 697) EGFR (BEAKER) (test 157 mL/min/1.73 ESTIM ATED GFR IS code = 1092) sq m NOT ACCURATE CREATININE CLEARANCE IN PREDICTING GLOMERULAR FILTRATION RATE . ESTIMATED GFR I S NOT APPLICABLE FOR DIALYSIS PATIEN TS. Benefits Coordinator ID - MARIBEL LLIPID [id number] 10:19:30 Test Item Value Reference Range Interpretation Comments TRIGLYCERIDES (BEAKER) 97 mg/dL Speci men slightly (test code = 540) hemolyzed CHOLESTEROL (BEAKER) 75 mg/dL Specime n slightly (test code = 631) hemolyzed HDL CHOLESTEROL (BEAKER) 13 mg/dL (test code = 976) LDL CHOLESTEROL 43 mg/dL CALCULATED (BEAKER) (test code = 633) Triglyceride Reference Range: Low Risk <150 Borderline 150-199 High Risk 200- 499 Very High Risk >=500Cholesterol Reference Range: Low Risk <200 Borderline 200-239 High Risk >240HDL Cholesterol Reference Range: Low Risk >=60 High Risk <40LDL Cholesterol Reference Range: Optimal <100 Near Optimal 100-129 Borderline 130-159 High 160-189 Very High >=190 Benefits Coordinator ID - MARIBEL [id number] 10:19:29 Test Item Value Reference Range Interpretation Comments MAGNESIUM (BEAKER) 1.5 mg/dL 1.6-2.6 L Specimen slightly (test code = 627) hemolyzed Benefits Coordinator ID - MARIBEL [id number] 10:19:29 Test Item Value Reference Range Interpretation Comments PHOSPHORUS (BEAKER) 3.9 mg/dL 2.3-4.7 Specimen slightly (test code = 604) hemolyzed Benefits Coordinator ID - MARIBEL LCBC W/PLT COUNT & AUTO [id number] 06:19:38 Test Item Value Reference Range Interpretation Comments WHITE BLOOD CELL COUNT (BEAKER) 8.6 K/ L 3.5-10.5 (test code = 775) RED BLOOD CELL COUNT (BEAKER) 4.97 M/ L 4.63-6.08 (test code = 761) HEMOGLOBIN (BEAKER) (test code = 12.4 GM/DL 13.7-17.5 L 410) HEMATOCRIT (BEAKER) (test code = 40.0 % 40.1-51.0 L 411) MEAN CORPUSCULAR VOLUME (BEAKER) 80.5 fL 79.0-92.2 (test code = 753) MEAN CORPUSCULAR HEMOGLOBIN 24.9 pg 25.7-32.2 L (BEAKER) (test code = 751) MEAN CORPUSCULAR HEMOGLOBIN CONC 31.0 GM/DL 32.3-36.5 L (BEAKER) (test code = 752) RED CELL DISTRIBUTION WIDTH 16.7 % 11.6-14.4 H (BEAKER) (test code = [...] (test code = 430) MONOCYTES RELATIVE PERCENT 1 % (BEAKER) (test code = 431) EOSINOPHILS RELATIVE PERCENT 0 % (BEAKER) (test code = 432) BASOPHILS RELATIVE PERCENT 0 % (BEAKER) (test code = 437) NEUTROPHILS ABSOLUTE COUNT 7.87 K/ L 1.78-5.38 H (BEAKER) (test code = 670) LYMPHOCYTES ABSOLUTE COUNT 0.57 K/ L 1.32-3.57 L (BEAKER) (test code = 414) MONOCYTES ABSOLUTE COUNT (BEAKER) 0.10 K/ L 0.30-0.82 L (test code = 415) EOSINOPHILS ABSOLUTE COUNT 0.00 K/ L 0.04-0.54 L (BEAKER) (test code = 416) BASOPHILS ABSOLUTE COUNT (BEAKER) 0.01 K/ L 0.01-0.08 (test code = 417) IMMATURE GRANULOCYTES-RELATIVE 1 % 0-1 PERCENT (BEAKER) (test code = 2801) COMPREHENSIVE METABOLIC [id number] 14:20:15 Test Item Value Reference Range Interpretation Comments TOTAL PROTEIN 6.0 gm/dL 6.0-8.3 Specimen sligh tly (BEAKER) (test code = hemoly zed 770) ALBUMIN (BEAKER) 2.7 g/dL 3.5-5.0 L Specimen sl ightly (test [...] 22-29 code = 355) BLOOD UREA NITROGEN 3 mg/dL 7-21 L (BEAKER) (test code = 354) CREATININE (BEAKER) 0.58 mg/dL 0.57-1.25 Specimen slightly (test code = 358) hemolyzed GLUCOSE RANDOM 73 mg/dL 70-105 (BEAKER) (test code = 652) CALCIUM (BEAKER) 8.3 mg/dL 8.4-10.2 L (test code = 697) AST (SGOT) (BEAKER) 45 U/L 5-34 H Specimen slightly (test code = 353) hemolyzed ALT (SGPT) (BEAKER) 15 U/L 6-55 Specimen slightly (test code = 347) hemolyzed EGFR (BEAKER) (test 179 ESTIMATE D GFR IS code = 1092) mL/min/1.73 sq NOT ACCURA TE m CREATININE CLEARANCE IN PREDICTING GLOMERULAR FILTRATION RATE . ESTIMATED GFR I S NOT APPLICABLE FOR DIALYSIS PATIEN TS. Benefits Coordinator ID - MARIBEL [id number] 14:20:15 Test Item Value Reference Range Interpretation Comments LIPASE (BEAKER) (test code = 749) 8 U/L 8-78 Benefits Coordinator ID - MARIBEL NEGRONACTIC ACID, [id number] 14:16:12 Test Item Value Reference Range Interpretation Comments LACTATE BLOOD VENOUS 1.09 mmol/L 0.50-2.20 Specime n slightly (2) (BEAKER) (test hemolyzed code = 2872) Benefits Coordinator ID - MARIBEL [id number] 14:09:56 Test Item Value Reference Range Interpretation Comments PARTIAL THROMBOPLASTIN TIME 28.8 seconds 22.5-36.0 (BEAKER) (test code = 760) PROTHROMBIN [id number] 14:09:14 Test Item Value Reference Range Interpretation Comments PROTIME (BEAKER) 16.6 seconds 11.9-14.2 H (test code = 759) INR (BEAKER) (test 1.37 See_Comment [Automat ed message] code = 370) The system [employer] generated this result transmitted ref erence range: <=5.90. The reference range was not used to int erpret this result as normal/abnormal . RECOMMENDED COUMADIN/WARFARIN INR THERAPY RANGESSTANDARD DOSE: 2.0 - 3.0 Includes: PROPHYLAXIS for venous thrombosis, systemic embolization; TREATMENT for venous thrombosis and/or pulmonary embolus.HIGH RISK: Target INR is 2.5-3.5 for patients with mechanical heart valves.CBC W/PLT COUNT & AUTO [id number] 14:03:40 Test Item Value Reference Range Interpretation [...] PERCENT (BEAKER) (test code = 2801) POCT-GLUCOSE [id number] 13:55:45 Test Item Value Reference Range Interpretation Comments POC-GLUCOSE METER 86 mg/dL 70-110 : TESTED A T [facility] 6720 (BEAKER) (test code = [place] [facility], 1538) [address]: Benefits Coordinator/Techni dakota ID = [id number] for Jose Hodges [employer] culture + smear (non-sputum)2021-11-16 10:41:32 Test Item Value Reference Range Interpretation Comments Result (test code = No acid-fast bacilli 6463-4) isolated in 42 days AFB Smear (test code = No acid fast bacilli 40309-0) [facility]UT[facility]2021-11-16 10:41:32 Test Item Value Reference Range Interpretation Comments CULTURE (BEAKER) (test No acid-fast bacilli code = 1095) isolated in 42 days AFB SMEAR (BEAKER) No acid fast bacilli (test code = 994) seen Fungus culture + [id number] 17:16:53 Test Item Value Reference Range Interpretation Comments Result (test code = No fungus isolated in 6463-4) 28 days Fungus Smear (test No fungi seen code = 1406) [facility] [id number] 17:16:53 Test Item Value Reference Range Interpretation Comments CULTURE (BEAKER) (test No fungus isolated in code = 1095) 28 days FUNGUS SMEAR (BEAKER) No fungi seen (test code = 1406) - CT ABDOMEN W W/O [id number] 15:32:00 [facility] WOODName: VANGIE OVALEL : 2000 Sex: M FAX: Willard Vaughn Jr [phone] [place]: St: REG Name: VANGIE OVALLE [facility] Robert : 2000 Age/S: 21/M [address] Unit: [id number] Loc: [place] [address] Phys: Willard Crouch Jr, MD Acct: [id number] Dis Date: Status: REG CLI PHONE #: [phone] Exam Date: 10/23/2021 7629 FAX #: [phone] Reason: ABDOMINAL ABSCESSES EXAMS: CPT CODE: [id number] CT ABDOMEN W W/O CONTRAST 96622 EXAMINATION: -CT ABDOMEN W W/O CONTRAST INDICATION: ABDOMINAL ABSCESSES [...] 2.8 cm, previously 7.8 x 3.6 cm atsimilar level. No definite finding of pancreatic necrosis. An additional air-fluid collection is seen in the right paracolic gutter which has decreased since prior exam, now measuring 9.7 x 3.6 cm, previously 12.7 x 7.0 cm at similar level. Additional fluid collection within the pelvis measures approximately 3.0 x 3.9 cm and tracks down into the pelvis, overall substantially decreased from prior although more focal in appearance on the current exam. Interval placement of drains terminating in region of pancreatic neck/body and within the left pelvis. No evidence of intestinal obstruction. Normal caliber abdominal aorta. PAGE 1 Signed Report (CONTINUED) FAX: Y Willard Crouch Jr [phone] [place]: St: REG -- Name: VANGIE OVALLE [facility] : 2000 Age/S: 21/M [address] Unit: [id number] Loc: [place] [address] Phys: Willard Crouch Jr, MD Acct: [id number] Dis Date: Status: REG CLI PHONE #:[phone] Exam Date: 10/23/2021 1445 FAX #: [phone] Reason: ABDOMINAL ABSCESSES EXAMS: CPT CODE: [id number] CT ABDOMEN W W/O CONTRAST 41240 (Continued) Imaged lower chest demonstrates mild bibasilar atelectasis. No acute osseous abnormality identified. IMPRESSION: Following interval drain placements, overall quantity of air-fluid collections has partially improved. at 1532 Reported and signed by: Sabas Grey MD CC: Willard Crouch JrTechnologist: DORENE WHITTAKER, RT(R,CT); MATTY CLINTON Trnscrd Dt/Tm: 10/23/2021 (1532) AmnaPE1 Orig Print D/T: S: 10/23/2021 (1536 PAGE 2 Signed ReportPOCT-GLUCOSE [id number] 12:03:00 Test Item Value Reference Range Interpretation Comments POC-GLUCOSE METER 147 mg/dL 70-110 H : TESTED A T [facility] 6720 (BEAKER) (test code = [place], 1538) [address]: Benefits Coordinator/Techni dakota ID = [id number] for Roberto Carlos Singh POCT-GLUCOSE [id number] 07:25:56 Test Item Value Reference Range Interpretation Comments POC-GLUCOSE METER 108 mg/dL 70-110 : TESTED A T [facility] 6720 (BEAKER) (test code = [place], 1538) [address]: Benefits Coordinator/Techni dakota ID = [id number] for Ob Saritha walker [id number] 06:30:28 Test Item Value Reference Range Interpretation Comments PHOSPHORUS (BEAKER) (test code = 3.1 mg/dL 2.3-4.7 604) Benefits Coordinator ID - DBHEPATIC FUNCTION [id number] 06:30:28 Test Item Value Reference Range Interpretation [...] (test code = 9 U/L 6-55 347) Benefits Coordinator ID - DBBASIC METABOLIC [id number] 06:30:27 Test Item Value Reference Range Interpretation [...] S NOT APPLICABLE FOR DIALYSIS PATIEN TS. Benefits Coordinator ID - [id number] 06:30:27 Test Item Value Reference Range Interpretation Comments MAGNESIUM (BEAKER) (test code = 1.6 mg/dL 1.6-2.6 627) Benefits Coordinator ID - DBCBC W/PLT COUNT & AUTO [id number] 06:18:45 Test Item Value Reference Range Interpretation [...] PERCENT (BEAKER) (test code = 2801) POCT-GLUCOSE [id number] 22:04:31 Test Item Value Reference Range Interpretation Comments POC-GLUCOSE METER 148 mg/dL 70-110 H : TESTED A T [facility] 6720 (BEAKER) (test code = [facility], 1538) [address]: Benefits Coordinator/Techni dakota ID = [id number] for JOANN RANDOLPH POCT-GLUCOSE [id number] 17:21:06 Test Item Value Reference Range Interpretation Comments POC-GLUCOSE METER 231 mg/dL 70-110 H : TESTED A T [facility] 6720 (BEAKER) (test code = [facility], 1538) [address]: Benefits Coordinator/Techni dakota ID = [id number] for JAIMIE FRANCOISCIE Anaerobic [id number] 13:55:46 Test Item Value Reference Range Interpretation Comments Result (test code = No anaerobes isolated 6463-4) [facility] [id number] 13:55:46 Test Item Value Reference Range Interpretation Comments CULTURE (BEAKER) (test No anaerobes isolated code = 1095) BASIC METABOLIC [id number] 12:01:25 Test Item Value Reference Range Interpretation [...] S NOT APPLICABLE FOR DIALYSIS PATIEN TS. Benefits Coordinator ID - ALVINA MHEPATIC FUNCTION [id number] 12:01:25 Test Item Value Reference Range Interpretation [...] (test code = 9 U/L 6-55 347) Benefits Coordinator ID - ALVINA MOperator ID - ALVINA [id number] 12:01:24 Test Item Value Reference Range Interpretation Comments PHOSPHORUS (BEAKER) (test code = 3.8 mg/dL 2.3-4.7 604) Benefits Coordinator ID - ALVINA [id number] 12:01:19 Test Item Value Reference Range Interpretation Comments MAGNESIUM (BEAKER) (test code = 1.5 mg/dL 1.6-2.6 L 627) Benefits Coordinator ID - ALVINA MPOCT-GLUCOSE [id number] 11:54:19 Test Item Value Reference Range Interpretation Comments POC-GLUCOSE METER 110 mg/dL 70-110 : TESTED A T [facility] 6720 (BEAKER) (test code = [place], 1538) [address]: Benefits Coordinator/Techni dakota ID = [id number] for [place] LLIS, ERNST CBC W/PLT COUNT & AUTO [id number] 11:25:49 Test Item Value Reference Range Interpretation [...] (test code = 416) BASOPHILS ABSOLUTE COUNT (LEOAKER) 0.06 K/ L 0.01-0.08 (test code = 417) IMMATURE GRANULOCYTES-RELATIVE 4 % 0-1 H PERCENT (LEOAKER) (test code = 2801) POCT-GLUCOSE [id number] 09:39:11 Test Item Value Reference Range Interpretation Comments POC-GLUCOSE METER 87 mg/dL 70-110 : TESTED A T [facility] 6720 (GENEVA) (test code = [place], 1538) [address]: Benefits Coordinator/Techni dakota ID = [id number] for DELMAR IYER SARS-COV2/RT-PCR ([facility])2021-10-09 04:10:06 Test Item Value Reference Range Interpretation Comments SARS-COV2/RT-PCR (test Negative Not Detected, Negative, code = 8894903) See external report for linked test SARS-COV-2 PERFORMING LAB [facility] SHAUNA (test code = 0804491) Negative result for this test determines that [...] justifying the authorization of the emergency use ofin vitro diagnostic tests for detection and/or diagnosis of COVID-19 is terminated under Section 564(b)(2) of the Act or the EUA is revoked under Section 564(g) of the Act.Fact Sheet for Healthcare Prov iders:https://www.[employer]/sites/default/files/product/documents/Fact_Sheet_HC _Zieysucaw_Zujx_TRGU-LpT-5.pdfFact Sheet for Healthcare Patients:https://www.[employer]/sites/default/files/product/docume nts/Spjc_Uqyem_Uestwtka_Myvn_GTBF-UsK-9.pdfPerforming Laboratory:[address] [address]VEJG-MTOOYAA METER 2021-10-08 20:41:51 Test Item Value Reference Range Interpretation Comments POC-GLUCOSE METER 102 mg/dL 70-110 : Notified RN/MD: ([facility]) (test code = TESTED AT [place] [address] 1538) [facility], [address]: Benefits Coordinator/Techni dakota ID = [id number] for KELECHI CATALINAHEATH NEVAREZ POCT-GLUCOSE [id number] 17:43:36 Test Item Value Reference Range Interpretation Comments POC-GLUCOSE METER 93 mg/dL 70-110 : [facility] ([facility]) (test code = [facility], 1538) [address]: Benefits Coordinator/Techni dakota ID = [id number] for [place]once[place] jewel, Umeshree POCT-GLUCOSE [id number] 12:09:22 Test Item Value Reference Range Interpretation Comments POC-GLUCOSE METER 93 mg/dL 70-110 : [facility] 67[facility] ([facility]) (test code = [facility], 1538) [address]: Benefits Coordinator/Techni dakota ID = [id number] for Bhag jewel, Rajashree POCT-GLUCOSE [id number] 08:51:46 Test Item Value Reference Range Interpretation Comments POC-GLUCOSE METER 95 mg/dL 70-110 : [facility] 67[facility] ([facility]) (test code = [facility], 153) [address]: Benefits Coordinator/Techni dakota ID = [id number] for Bhag jewel, Rajashree [id number] 05:23:25 Test Item Value Reference Range Interpretation Comments PHOSPHORUS (BEAKER) (test code = 3.1 mg/dL 2.3-4.7 604) Benefits Coordinator ID Cherelle LÓPEZ LHEPATIC FUNCTION [id number] 05:23:25 Test Item Value Reference Range Interpretation [...] (test code = 11 U/L 6-55 347) Benefits Coordinator ID - MARIBEL LBASIC METABOLIC [id number] 05:23:24 Test Item Value Reference Range Interpretation [...] S NOT APPLICABLE FOR DIALYSIS PATIEN TS. Benefits Coordinator ID - MAILEJOVI [id number] 05:23:24 Test Item Value Reference Range Interpretation Comments MAGNESIUM (BEAKER) (test code = 1.4 mg/dL 1.6-2.6 L 627) Benefits Coordinator ID - PIAYA LCBC W/PLT COUNT & AUTO [id number] 04:49:36 Test Item Value Reference Range Interpretation [...] PERCENT (BEAKER) (test code = 2801) POCT-GLUCOSE [id number] 21:40:30 Test Item Value Reference Range Interpretation Comments POC-GLUCOSE METER 135 mg/dL 70-110 H : TESTED A T [facility] 6720 (BEAKER) (test code = [facility], 1538) [address]: Benefits Coordinator/Techni dakota ID = [id number] for MARTINE VASQUEZ POCT-GLUCOSE [id number] 16:34:48 Test Item Value Reference Range Interpretation Comments POC-GLUCOSE METER 177 mg/dL 70-110 H : TESTED A T [facility] 6720 (BEAKER) (test code = [facility], 1538) [address]: Benefits Coordinator/Techni dakota ID = [id number] for QUEEN HONEYCUTT POCT-GLUCOSE [id number] 11:09:04 Test Item Value Reference Range Interpretation Comments POC-GLUCOSE METER 156 mg/dL 70-110 H : TESTED A T [facility] 6720 (BEAKER) (test code = [facility], 1538) [address]: Benefits Coordinator/Techni dakota ID = [id number] for QUEEN HONEYCUTT POCT-GLUCOSE [id number] 07:50:39 Test Item Value Reference Range Interpretation Comments POC-GLUCOSE METER 69 mg/dL 70-110 L : TESTED A T [facility] 6720 (BEAKER) (test code = [facility], 1538) [address]: Benefits Coordinator/Techni dakota ID = [id number] for QUEEN JACOBSEN HEPATIC FUNCTION [id number] 04:46:43 Test Item Value Reference Range Interpretation [...] (test code = 11 U/L 6-55 347) Benefits Coordinator ID - ALVINA [id number] 04:46:42 Test Item Value Reference Range Interpretation Comments MAGNESIUM (BEAKER) (test code = 1.4 mg/dL 1.6-2.6 L 627) Benefits Coordinator ID - ALVINA [id number] 04:46:42 Test Item Value Reference Range Interpretation Comments PHOSPHORUS (BEAKER) (test code = 2.6 mg/dL 2.3-4.7 604) Benefits Coordinator ID - ALVINA MBASIC METABOLIC [id number] 04:46:41 Test Item Value Reference Range Interpretation [...] S NOT APPLICABLE FOR DIALYSIS PATIEN TS. Benefits Coordinator ID - ALVINA MPOCT-GLUCOSE [id number] 21:32:38 Test Item Value Reference Range Interpretation Comments POC-GLUCOSE METER 175 mg/dL 70-110 H : TESTED A T [facility] 6720 (BEAKER) (test code = [place], 1538) [address]: Benefits Coordinator/Techni dakota ID = [id number] for NG O, BRIGIDA POCT-GLUCOSE [id number] 16:48:18 Test Item Value Reference Range Interpretation Comments POC-GLUCOSE METER 217 mg/dL 70-110 H : TESTED A T [facility] 6720 (BEAKER) (test code [facility], = 1538) [address]: Benefits Coordinator/Techni dakota ID = [id number] for Mercy Peña POCT-GLUCOSE [id number] 12:45:58 Test Item Value Reference Range Interpretation Comments POC-GLUCOSE METER 158 mg/dL 70-110 H : TESTED A T [facility] 6720 (BEAKER) (test code [facility], = 1538) [address]: Benefits Coordinator/Techni dakota ID = [id number] for Mercy Peña HEPATIC FUNCTION [id number] 06:44:11 Test Item Value Reference Range Interpretation [...] (test code = 11 U/L 6-55 347) Benefits Coordinator ID - ALVINA [id number] 06:44:10 Test Item Value Reference Range Interpretation Comments PHOSPHORUS (BEAKER) (test code = 2.4 mg/dL 2.3-4.7 604) Benefits Coordinator ID - ALVINA MBASIC METABOLIC [id number] 06:44:09 Test Item Value Reference Range Interpretation [...] S NOT APPLICABLE FOR DIALYSIS PATIEN TS. Benefits Coordinator ID - ALVINA [id number] 06:44:09 Test Item Value Reference Range Interpretation Comments MAGNESIUM (BEAKER) (test code = 1.5 mg/dL 1.6-2.6 L 627) Benefits Coordinator ID - ALVINA MCBC W/PLT COUNT & AUTO [id number] 06:09:40 Test Item Value Reference Range Interpretation [...] PERCENT (BEAKER) (test code = 2801) BLOOD [id number] 23:00:53 Test Item Value Reference Range Interpretation Comments CULTURE (BEAKER) (test No growth in 5 days code = 1095) The specimen volume collected for this blood culture was below the optimum (10 mL per bottle or 20 mL total). Use of lower volumes may adversely affect recovery and/or detection times of some organisms.BLOOD [id number] 23:00:53 Test Item Value Reference Range Interpretation Comments CULTURE (BEAKER) (test No growth in 5 days code = 1095) POCT-GLUCOSE [id number] 21:19:41 Test Item Value Reference Range Interpretation Comments POC-GLUCOSE METER 154 mg/dL 70-110 H : TESTED Daphne T [facility] 6720 (BEAKER) (test code = [place], 1538) [address]: Benefits Coordinator/Techni dakota ID = [id number] for Shabbir schneider (contract)Palak POCT-GLUCOSE [id number] 16:32:34 Test Item Value Reference Range Interpretation Comments POC-GLUCOSE METER 168 mg/dL 70-110 H : TESTED A T [facility] 6720 (BEAKER) (test code = [place], 1538) [address]: Benefits Coordinator/Techni dakota ID = [id number] for [place] LLIS, ERNST POCT-GLUCOSE [id number] 11:36:04 Test Item Value Reference Range Interpretation Comments POC-GLUCOSE METER 120 mg/dL 70-110 H : TESTED A T [facility] 6720 (BEAKER) (test code = [place], 1538) [address]: Benefits Coordinator/Techni dakota ID = [id number] for [place] LLIS, ERNST SARS-COV2/RT-PCR ([facility])2021-10-05 10:25:30 Test Item Value Reference Range Interpretation Comments SARS-COV2/RT-PCR (test Negative Not Detected, Negative, code = 0649971) See external report for linked test SARS-COV-2 PERFORMING LAB [facility] (test code = 3105258) Negative result for this test determines that [...] justifying the authorization of the emergency use ofin vitro diagnostic tests for detection and/or diagnosis of COVID-19 is terminated under Section 564(b)(2) of the Act or the EUA is revoked under Section 564(g) of the Act.Fact Sheet for Healthcare Prov iders:https://www.[employer]/sites/default/files/product/documents/Fact_Sheet_HC _Luytcayyw_Cejv_MEUA-EqI-6.pdfFact Sheet for Healthcare Patients:https://www.[employer]/sites/default/files/product/docume nts/Utgs_Bffae_Ohoscrrf_Vklg_FXDF-YiM-9.pdfPerforming Laboratory:[place] [address] [address], [place] [address]JYKS-YAXQEZF METER 2021-10-05 08:03:30 Test Item Value Reference Range Interpretation Comments POC-GLUCOSE METER 109 mg/dL 70-110 : TESTED A T [facility] 6720 (BEAKER) (test code = [place] [facility], 1538) [address]: Benefits Coordinator/Techni dakota ID = [id number] for ERNST FRANCOIS HEPATIC FUNCTION [id number] 07:35:20 Test Item Value Reference Range Interpretation [...] (test code = 12 U/L 6-55 347) Benefits Coordinator ID - MARIBEL Modi ID - [id number] 06:55:48 Test Item Value Reference Range Interpretation Comments MAGNESIUM (BEAKER) (test code = 1.6 mg/dL 1.6-2.6 627) Benefits Coordinator ID - MARIBEL [id number] 06:55:48 Test Item Value Reference Range Interpretation Comments PHOSPHORUS (BEAKER) (test code = 2.1 mg/dL 2.3-4.7 L 604) Benefits Coordinator ID - MARIBEL LBASIC METABOLIC [id number] 06:55:47 Test Item Value Reference Range Interpretation [...] S NOT APPLICABLE FOR DIALYSIS PATIEN TS. Benefits Coordinator ID - MARIBEL LCBC W/PLT COUNT & AUTO [id number] 06:21:14 Test Item Value Reference Range Interpretation [...] PERCENT (BEAKER) (test code = 2801) POCT-GLUCOSE [id number] 21:22:59 Test Item Value Reference Range Interpretation Comments POC-GLUCOSE METER 192 mg/dL 70-110 H : TESTED A T [facility] 6720 (BEAKER) (test code = DONNA WHITMAN, 1538) 23264: Benefits Coordinator/Techni [place]ota ID = [id number] for Shabbir schneider (contract) Palak valenzuela POCT-GLUCOSE [id number] 17:34:11 Test Item Value Reference Range Interpretation Comments POC-GLUCOSE METER 201 mg/dL 70-110 H : TESTED A T [facility] 6720 (BEAKER) (test code = DONNA WHITMAN, 1538) 92914: Benefits Coordinator/Techni dakota ID = [id number] for Keely House POCT-GLUCOSE [id number] 12:07:46 Test Item Value Reference Range Interpretation Comments POC-GLUCOSE METER 103 mg/dL 70-110 : TESTED A T [facility] 6720 (BEAKER) (test code = DONNA [place] [facility], 1538) 67831: Benefits Coordinator/Techni dakota ID = [id number] for ERNST FRANCOIS SURGICALLY OBTAINED CULTURE + GRAM [id number] 09:10:42 Test Item Value Reference Range Interpretation [...] gram negative (BEAKER) (test code = rods 149955) HEPATIC FUNCTION [id number] 07:01:07 Test Item Value Reference Range Interpretation [...] (test code = 12 U/L 6-55 347) Benefits Coordinator ID - BISI [id number] 07:01:06 Test Item Value Reference Range Interpretation Comments PHOSPHORUS (BEAKER) (test code = 2.8 mg/dL 2.3-4.7 604) Benefits Coordinator ID - BISI GBASIC METABOLIC [id number] 07:01:05 Test Item Value Reference Range Interpretation [...] S NOT APPLICABLE FOR DIALYSIS PATIEN TS. Benefits Coordinator ID - BISI [id number] 07:01:05 Test Item Value Reference Range Interpretation Comments MAGNESIUM (BEAKER) (test code = 1.6 mg/dL 1.6-2.6 627) Benefits Coordinator ID - BISI GCBC W/PLT COUNT & AUTO [id number] 06:35:47 Test Item Value Reference Range Interpretation [...] PERCENT (BEAKER) (test code = 2801) POCT-GLUCOSE [id number] 16:48:07 Test Item Value Reference Range Interpretation Comments POC-GLUCOSE METER 113 mg/dL 70-110 H : TESTED A T [facility] 6720 (BEAKER) (test code = [facility], 1538) [address]: Benefits Coordinator/Techni dakota ID = [id number] for MASON FALCON POCT-GLUCOSE [id number] 11:46:29 Test Item Value Reference Range Interpretation Comments POC-GLUCOSE METER 116 mg/dL 70-110 H : TESTED A [facility] 6720 (BEAKER) (test code = [facility], 1538) [address]: Benefits Coordinator/Techni dakota ID = [id number] for MASON FALCON ANTI-DNA [id number] 11:16:17 Test Item Value Reference Range Interpretation Comments ANTI-DNA TITER (BEAKER) (test code = :80 1553) DOUBLE-STRANDED DNA (DSDNA) [id number] 11:16:05 Test Item Value Reference Range Interpretation Comments ANTI-DNA DS (BEAKER) (test code = Positive Negative 1055) ANAEROBIC [id number] 08:30:44 Test Item Value Reference Range Interpretation Comments CULTURE (BEAKER) (test No anaerobes isolated code = 1095) HEPATIC FUNCTION [id number] 05:47:57 Test Item Value Reference Range Interpretation [...] Specimen slightly (test code = 347) hemolyzed Benefits Coordinator ID - PIAYA LBASIC METABOLIC [id number] 05:47:56 Test Item Value Reference Range Interpretation [...] S NOT APPLICABLE FOR DIALYSIS PATIEN TS. Benefits Coordinator ID - MARIBEL [id number] 05:47:55 Test Item Value Reference Range Interpretation Comments PHOSPHORUS (BEAKER) 4.6 mg/dL 2.3-4.7 Specimen slightly (test code = 604) hemolyzed Benefits Coordinator ID - MARIBEL [id number] 05:47:54 Test Item Value Reference Range Interpretation Comments MAGNESIUM (BEAKER) 1.9 mg/dL 1.6-2.6 Specimen slightly (test code = 627) hemolyzed Benefits Coordinator ID - MARIBEL LCBC (HEMOGRAM ONLY)2021-10-03 05:23:39 Test Item Value [...] 0-0 (BEAKER) (test code = 413) POCT-GLUCOSE [id number] 05:08:33 Test Item Value Reference Range Interpretation Comments POC-GLUCOSE METER 102 mg/dL 70-110 : Notified RN/MD: (BEAKER) (test code = TESTED AT [facility] 6746 1533) [facility] [place], [address]: Benefits Coordinator/Techni dakota ID = [id number] for Aaron Paul BASIC METABOLIC [id number] 21:11:22 Test Item Value Reference Range Interpretation [...] S NOT APPLICABLE FOR DIALYSIS PATIEN TS. Benefits Coordinator ID - [id number] 21:10:34 Test Item Value Reference Range Interpretation Comments PHOSPHORUS (BEAKER) (test code = 4.2 mg/dL 2.3-4.7 604) Benefits Coordinator ID - [id number] 21:10:33 Test Item Value Reference Range Interpretation Comments MAGNESIUM (BEAKER) (test code = 1.4 mg/dL 1.6-2.6 L 627) Benefits Coordinator ID - ADMINCBC (HEMOGRAM ONLY)2021-10-02 20:57:35 Test [...] 0-0 (BEAKER) (test code = 413) POCT-GLUCOSE [id number] 19:48:59 Test Item Value Reference Range Interpretation Comments POC-GLUCOSE METER 104 mg/dL 70-110 : TESTED A T [facility] 6720 (BEAKER) (test code = [place], 1538) [address]: Benefits Coordinator/Techni dakota ID = [id number] for Marcio Guerra HGB/HCT (H&H)-Stat [id number] 18:09:55 Test Item Value Reference Range Interpretation Comments Hemoglobin (test code = 10.2 See_Comment L [Au tomated message] 786-4) The system [facility] Xipin generated this result transmitted ref erence range: 13.0 - 1 6.8 GM/DL. The refe rence range was not u sed to interpret this result as normal/abnor mal. Hematocrit (test code = 30.0 % 40.0-50.0 L 4544-3) Lab Interpretation (test Abnormal code = 14223-0) [facility] [id number] 18:09:55 Test Item Value Reference Range Interpretation Comments HEMOGLOBIN (BEAKER) (test code = 10.2 GM/DL 13.0-16.8 L 410) HEMATOCRIT (BEAKER) (test code = 30.0 % 40.0-50.0 L 411) Sodium Na-Stat [id number] 18:09:54 Test Item Value Reference Range Interpretation Comments Sodium (test code = 2951-2) 130 meq/L 136-145 L Lab Interpretation (test code = Abnormal 91301-1) [facility] [id number] 18:09:54 Test Item Value Reference Range Interpretation Comments SODIUM (BEAKER) (test code = 381) 130 meq/L 136-145 L Blood gas, [id number] 18:09:53 Test Item Value Reference Range Interpretation Comments pH, Arterial (test code 7.50 7.35-7.45 H = 2744-1) pCO2, Arterial (test 35 See_Comment [Autom ated message] code = 2019-8) The system [facility] generated this result transmit hernandez reference range : 35 - 45 mm Hg. The reference range was not used to interpret this result as normal/abnormal . pO2, Arterial (test 139 See_Comment H [Automa hernandez message] code = 2703-7) The system [facility] generated this result transmit hernandez reference range : 80 - 90 mm Hg. The reference range was not used to interpret this result as normal/abnormal . O2 Sat, Arterial (test 99.0 % 96.0-97.0 H code = 2708-6) HCO3, Arterial (test 27 mmol/L 21-29 code = 1960-4) Base Excess, Arterial 3.8 mmol/L -2.0-3.0 H (test code = 1925-7) Patient Temperature 37.0 (test code = 8310-5) Lab Interpretation Abnormal (test code = 96858-2) [facility], [id number] 18:09:53 Test Item Value Reference Range Interpretation Comments CALCIUM IONIZED (BEAKER) (test 1.07 mmol/L 1.12-1.27 L code = 698) PH, BLOOD (BEAKER) (test code = 7.50 1810) BLOOD GAS, [id number] 18:09:53 Test Item Value Reference Range Interpretation [...] TEMPERATURE (BEAKER) (test 37.0 code = 1818) Glucose-Stat [id number] 18:08:53 Test Item Value Reference Range Interpretation Comments Glucose (test code = 2345-7) 101 mg/dL 70-110 Lab Interpretation (test code = Normal 14176-3) [facility]-Stat [id number] 18:08:53 Test Item Value Reference Range Interpretation Comments Potassium (test code = 2823-3) 4.2 meq/L 3.6-5.5 Lab Interpretation (test code = Normal 58824-2) [facility] Center[facility]SE-STAT [id number] 18:08:53 Test Item Value Reference Range Interpretation Comments GLUCOSE RANDOM (BEAKER) (test code 101 mg/dL 70-110 = 652) POTASSIUM-STAT [id number] 18:08:53 Test Item Value Reference Range Interpretation Comments POTASSIUM (BEAKER) (test code = 4.2 meq/L 3.6-5.5 379) POCT-GLUCOSE [id number] 16:03:15 Test Item Value Reference Range Interpretation Comments POC-GLUCOSE METER 128 mg/dL 70-110 H : TESTED A T [facility] 6720 (GENEVA) (test code = [place], 1538) [address]: Benefits Coordinator/Techni dakota ID = [id number] for Keely House VANCOMYCIN LEVEL, [id number] 14:06:37 Test Item Value Reference Range Interpretation Comments VANCOMYCIN TROUGH (GENEVA) (test 10.9 ug/mL 10.0-20.0 code = 522) Benefits Coordinator ID - DBSARS-COV2/RT-PCR ([facility])2021-10-02 12:40:57 Test Item Value Reference Range Interpretation Comments SARS-COV2/RT-PCR (test Negative Not Detected, Negative, code = 6367077) See external report for linked test SARS-COV-2 PERFORMING LAB [facility] (test code = 4367045) Negative result for this test determines that [...] justifying the authorization of the emergency use ofin vitro diagnostic tests for detection and/or diagnosis of COVID-19 is terminated under Section 564(b)(2) of the Act or the EUA is revoked under Section 564(g) of the Act.Fact Sheet for Healthcare Prov iders:https://www.[employer]/sites/default/files/product/documents/Fact_Sheet_HC _Bpsgzgloq_Ybzx_XTAN-QvA-3.pdfFact Sheet for Healthcare Patients:https://www.[employer]/sites/default/files/product/docume nts/Cmbk_Bneki_Ymnlpgoj_Kyza_AMKL-NxR-2.pdfPerforming Laboratory:[facility] [place], [place] [address]QM, DRAINAGE, ABDOMINAL 2021-10-02 11:36:00Reason for exam:->necrotizing pancreatitis wiht fluid collections in abdomenReason for exam:->pls send cultures (aerobic, anaerobic) and amylase from fluid (all are ordered) [facility] VANGIE OVAL[facility] : 2000 Sex: MFINAL REPORT PROCEDURE: Drainage catheter placement Procedural PersonnelAttending physician(s): Marvin Jordan physician(s): NoneResident physician(s): NoneAdvanced practice provider(s): None Pre-procedure diagnosis: Necrotizing pancreatitisPost-procedure diagnosis: SameIndication:Leukocytosis with fluid collectionAdditional clinical history: None Complications: No immediate complications. IMPRESSION: Percutaneous placement of a 16 Serbian drainage catheter into the anterior right upper quadrant fluid collection, yielding 100 mL of foul smelling murky brown fluid. Plan: Drain tobulb suction. Samples sent for culture. PROCEDURE SUMMARY:- Abdominal fluid collection drainage catheter placement under CT guidance- Additional procedure(s): None PROCEDURE DETAILS: Pre- procedureConsent: Informed consent for the procedure including risks, benefits and alternatives was obtained and time-out was performed prior to the procedure.Preparation: The site was prepared and draped using maximal sterile barrier technique including cutaneous antisepsis. Anesthesia/sedationLevel of anesthesia/sedation: Moderate sedation (conscious sedation) 1mg versed, 50mcg fentanylAnesthesia/sedation administered by: Independent trained observer under attending supervision with continuous monitoring of the patient\\X2019\\s level of consciousness and physiologic statusTotal intra-service sedation time (minutes): 30 Drainage catheter placementThe patient was positioned supine. Initial imaging was performed. Local anesthesia was administered. The fluid collection was accessed using trocar technique and a drainage catheter was placed. Position of the drainage catheter within the fluid collection was confirmed. - Initial imaging findings: Multiple large intra-abdominal fluid collection- Drainage catheter placed: 16Fr cook multipurpose- External catheter securement: Non- absorbable suture- Post-drainage imaging findings: Partial drainage of the fluid collection ContrastContrast agent: NoneContrast volume (mL): 0 Radiation DoseCT dose length product (mGy-cm): 2988 This exam was performed according to the departmental dose-optimization program which includes automated exposure control, adjustment of the mA and/or kV according to patient size and/or use of iterative reconstruction technique. Additional DetailsAdditional description of procedure: NoneEquipment details: NoneSpecimens removed: Aspirated fluid was sent for analysis.Estimatedblood loss (mL): Less than 10Standardized report: SIR_DrainPlacement_v3 AttestationSigner name: Frida Loya attest that I was present for the entire procedure. I reviewed the stored images and agree with the report as written. Signed: Frida Daly MDReport Verified Date/Time: 10/02/2021 11:36:21 POCT-GLUCOSE [id number] 11:03:27 Test Item Value Reference Range Interpretation Comments POC-GLUCOSE METER 109 mg/dL 70-110 : TESTED A T [facility] 6720 (BEAKER) (test code = [place], 1538) [address]: Benefits Coordinator/Techni dakota ID = [id number] for QUEEN HONEYCUTT BLOOD [id number] 10:09:04 Test Item Value Reference Interpretation Comments [...] gram 1123) positive cocci in clusters POCT-GLUCOSE [id number] 07:31:14 Test Item Value Reference Range Interpretation Comments POC-GLUCOSE METER 76 mg/dL 70-110 : TESTED A T [facility] 6720 (BEAKER) (test code = [place] [facility], 1538) [address]: Benefits Coordinator/Techni dakota ID = [id number] for QUEEN JACOBSEN [id number] 07:25:22 Test Item Value Reference Range Interpretation Comments PHOSPHORUS (BEAKER) (test code = 3.1 mg/dL 2.3-4.7 604) Benefits Coordinator ID - RMHEPATIC FUNCTION [id number] 07:25:22 Test Item Value Reference Range Interpretation [...] (test code = 7 U/L 6-55 347) Benefits Coordinator ID - RMBASIC METABOLIC [id number] 07:25:21 Test Item Value Reference Range Interpretation [...] S NOT APPLICABLE FOR DIALYSIS PATIEN TS. Benefits Coordinator ID - [id number] 07:25:21 Test Item Value Reference Range Interpretation Comments MAGNESIUM (BEAKER) (test code = 1.6 mg/dL 1.6-2.6 627) Benefits Coordinator ID - RMCBC (HEMOGRAM ONLY)2021-10-02 06:32:43 Test [...] 0-0 (BEAKER) (test code = 413) POCT-GLUCOSE [id number] 21:46:52 Test Item Value Reference Range Interpretation Comments POC-GLUCOSE METER 229 mg/dL 70-110 H : TESTED A T [facility] 6720 ([facility]) (test code = [facility], 1538) [address]: Benefits Coordinator/Techni dakota ID = [id number] for HERLINDA VELASQUEZ POCT-GLUCOSE [id number] 16:53:40 Test Item Value Reference Range Interpretation Comments POC-GLUCOSE METER 231 mg/dL 70-110 H : Notified RN/MD: ([facility]) (test code = TESTED AT [facility] 6720 1538) [facility], [address]: Benefits Coordinator/Techni dakota ID = [id number] for Filippo Feldman 2D Echo W/Doppler(CW/PW/Color)2021-10-01 14:03:19 Test Item Value Reference Range Interpretation Comments Ejection Fraction Est EF is 55-60% (test code = 2574) Radiology Study observation (narrative) (test code = 99324-5) PXN (test code = Alejandro Hudson MD PXN) - 10/01/2021 Transthoracic Echocardiography Report (TTE) Demographics Patient Name YAMILE, Date of Study 10/01/2021 ALBRIGHT Gender Male Visit Number [id number] Race Unknown Room Number 931 Number Date of 2000 Referring Physician Rebecca Echols Age 21 year(s) Obstetrics Gyn Physician Garret Calderon [facility] Transmission And Coordination Engineer Stefano Genao Interpreting Physician MAR Espinoza Procedure Type of Study TTE procedure:2DECHO W DOPPLER(CW/PW/COLOR) (JON) Indications:Suspected infective endocarditis with positive cultures or newmurmur.Clinical HistoryBipolar 1 disorderStroke/TIAHyperte nsionSystemic Lupus erythematosusS/P AppendectomyHGB 9.8HCT 32.8 %Height: 69 inches Weight: 99.79 kg (220 lbs) BSA: 2.15 m^2 BMI: 32.49 kg/m^2HR: 93 bpm BP: 129/82 mmHg Summary No TTE evidence of endocarditis. Consider GAGANDEEP if clinically indicated. Normal left ventricular chamber size. Normal wall thickness. Normal overall left ventricular systolic function. No apparent segmental wall motion abnormalities. Estimated LVEF is 55-60%. Normal diastolic function. Unable to estimate peak systolic PA pressure; inadequate TR velocity signal. Previous Study Compared to the previous study there was no significant change. Signature Findings Left Ventricle Normal left ventricular chamber size. Normal wall thickness. Normal overall left ventricular systolic function. No apparent segmental wall motion abnormalities. Estimated LVEF is 55-60%. Normal diastolic function. Left Atrium LA size is normal . Right Ventricle Normal right ventricle structure and function. Right Atrium Normal right atrium. Aortic Valve Normal aortic valve structure and function. Mitral Valve Mild mitral regurgitation. Tricuspid Valve A trace of tricuspid regurgitation. Unable to estimate peak systolic PA pressure; inadequate TR velocity signal. Pulmonic Valve Normal PV structure and function by limited views and Doppler. Aorta Aortic root size (SInus of Valsalva diameter) is normal . Pericardium A small posterior pericardial effusion is present . IVC/SVC/PA/PV/Pleural The estimated RA pressure by IVC dynamics 0-5mmHg . Chambers/Structures Left Atrium LA Volume: 57.73 ml LA Area: 18.97 cm^2 LA Vol. Index: 27 ml/m^2 Left Ventricle LVIDd: 6.14 cm LVEDV:189.54 ml LV Septum Diastolic: 0.67 cm LV PW Diastolic: 0.55 cm LVEDV Kaba's:139.4 ml LVESV Kaba's:55.16 ml LVEF Kaba's: 60.4 % LVEDVI: 65 ml/m^2 LVESVI: 26 ml/m^2 LVOT Diameter: 2.47 cm Aorta Ao Root S of Jessenia.: 3.1 cm Doppler/Quantitative Measurements Mitral Valve MV Peak E-Wave: 1.09 m/s MV Peak A-Wave: 0.85 m/s E/A Ratio: 1.28 Peak Gradient: 4.73 mmHg Deceleration Time: 278.4 msec MV Supa. Peak: Aortic Valve Peak Velocity: 1.4 m/s Mean Velocity: 1 m/s Peak Gradient: 7.81 mmHg Mean Gradient: 4.62 mmHg AV Area (continuity): 3.71 cm^2 AV VTI: 26.29 cm AV DVI: 0.78 LVOT Peak Velocity: 1.21 m/s Peak Gradient: 5.88 mmHg Mean Velocity: 0.77 m/s Mean Gradient: 2.79 mmHg LVOT Diameter: 2.47 cm LVOT VTI: 20.38 cm LVOT Area: 4.79 cm^2 LVOT SV:97.6 ml LVOT CO: 9.08 l/min LVOT CI: 4.22 l/min/m^2 Tricuspid Valve TR Velocity: 2.26 m/s TR Gradient: 20.34 mmHg [facility] CenterPO[facility] [id number] 12:29:44 Test Item Value Reference Range Interpretation Comments POC-GLUCOSE METER 186 mg/dL 70-110 H : TESTED A T [facility] 1864 (BEEQO) (test code = [place], 1538) [address]: Benefits Coordinator/Techni dakota ID = [id number] for DELMAR COOPER CT, ABDOMEN - PELVIS, PANCREAS [id number] 09:34:00Please have IV contrast if not already part of protocol.Unlisted Reason for Exam - Click Yes and Enter Reason Below->No [facility] VANGIE OVAL[facility] : 2000 Sex: MFINALREPORT EXAM: CT Abdomen and Pelvis WITHOUT and WITH contrast INDICATION: Necrotizing pancreatitis, abdominal infection.COMPARISON: CT abdomen and [...] pancreatic necrosis Superior Mesenteric Artery: Patent Celiac [place]: Patent Celiac [place] and Hepatic Artery Anatomy: Conventional Gastroduodenal Ar yessica: Patent Splenic Artery: Patent Main Portal Vein: Patent Portal Vein [place]: Patent Splenic Vein: Patent Superior Mesenteric Vein: Patent ADRENALS: No adrenal nodules.KIDNEYS/URETERS: No hydronephrosis, stones, or masses.PELVIC ORGANS/BLADDER: Unremarkable. PERITONEUM/RETROPERITONEUM: There has been interval placement of a percutaneous drain into the ill-defined partially loculated gas and fluid containing focus adjacent to the anterior aspect of the pancreas. Overall this portion of the collection is minimally decreased in size. Additional communicating multilobulated gas and fluid containing collections extend caudally along the lateral conal fascia, as before. Loculated foci of fluid along the left anterior abdominal wall and within the right retroperitoneum, as before. No gross free air within the upper abdomen.LYMPH NODES: No lymphadenopathy.VESSELS: Unremarkable. GI TRACT: No [...] indicate necrosis. Mesenteric vasculature remains patent. Signed: Andrés Holloway MDReport Verified Date/Time: 10/01/2021 09:34:00 BLOOD [id number] 08:36:30 Test Item Value Reference Range Interpretation Comments CULTURE A From Aerobic An d (BEAKER) (test Anaerobic Bot tles Same code = 1095) organism has be en isolated from cultures(s) of the same body site and collection date . Repeat identifi cation and susceptibil ity testing perform ed only after consultat ion with the [facility] microbiology laboratory.Refe r to previous cultur e of* - Staphylococcus hominis GRAM STAIN From aerobic and RESULT (BEAKER) anaerobic (test code = bottles: gram 1123) positive cocci in clusters BODY FLUID CULTURE + GRAM [id number] 08:15:57 Test Item Value Reference Range Interpretation [...] gram negative (BEAKER) (test code = rods 684521) [id number] 05:43:54 Test Item Value Reference Range Interpretation Comments PHOSPHORUS (BEAKER) (test code = 2.8 mg/dL 2.3-4.7 604) Benefits Coordinator ID Cherelle SWANN WHEPATIC FUNCTION [id number] 05:43:54 Test Item Value Reference Range Interpretation [...] (test code = 7 U/L 6-55 347) Benefits Coordinator ID - SHREE WBASIC METABOLIC [id number] 05:43:53 Test Item Value Reference Range Interpretation [...] S NOT APPLICABLE FOR DIALYSIS PATIEN TS. Benefits Coordinator ID - SHREE [id number] 05:43:53 Test Item Value Reference Range Interpretation Comments MAGNESIUM (BEAKER) (test code = 1.4 mg/dL 1.6-2.6 L 627) Benefits Coordinator ID Cherelle SWANN WCBC (HEMOGRAM ONLY)2021-10-01 05:31:02 [...] 0-0 H (BEAKER) (test code = 413) Prepare Leuko-Red [id number] 23:54:00 Test Item Value Reference Range Interpretation Comments CROSSMATCH (test code = 2264) COMPATIBLE Unit ABO (test code = A Pos 6584997) UNIT NUMBER (test code = [id number] 934-0) Status (test code = 1197156) TX_TIMEINCHART Blood Bank Product (test code RED BLOOD CELLS = 2263) PRODUCT CODE (test code = R9285S83 933-2) [facility] [id number] 22:44:20 Test Item Value Reference Range Interpretation Comments POC-GLUCOSE METER 162 mg/dL 70-110 H : TESTED A T [facility] 6720 (BEAKER) (test code = [facility], 1538) [address]: Benefits Coordinator/Techni dakota ID = [id number] for MARCOS WESTFALL POCT-GLUCOSE [id number] 17:43:25 Test Item Value Reference Range Interpretation Comments POC-GLUCOSE METER 145 mg/dL 70-110 H : TESTED A T [facility] 6720 (BEAKER) (test code = [facility], 1538) [address]: Benefits Coordinator/Techni dakota ID = [id number] for DELMAR COOPER POCT-GLUCOSE [id number] 12:01:10 Test Item Value Reference Range Interpretation Comments POC-GLUCOSE METER 147 mg/dL 70-110 H : TESTED A T [facility] 6720 (BEAKER) (test code = [facility], 1538) [address]: Benefits Coordinator/Techni dakota ID = [id number] for DELMAR COOPER POCT-GLUCOSE [id number] 07:49:49 Test Item Value Reference Range Interpretation Comments POC-GLUCOSE METER 131 mg/dL 70-110 H : TESTED A T [facility] 6720 (BEAKER) (test code = [facility], 1538) [address]: Benefits Coordinator/Techni dakota ID = [id number] for DELMAR COOPER COMPLEMENT COMPONENT [id number] 02:28:40 Test Item Value Reference Range Interpretation Comments C4 COMPLEMENT (BEAKER) (test code = 5 mg/dL 15-57 L 394) Benefits Coordinator ID - BSCOMPLEMENT COMPONENT [id number] 02:28:40 Test Item Value Reference Range Interpretation Comments C3 COMPLEMENT (BEAKER) (test code = 38 mg/dL 82-193 L 393) Benefits Coordinator ID - BSHEPATIC FUNCTION [id number] 02:27:21 Test Item Value Reference Range Interpretation [...] (test code = 11 U/L 6-55 347) Benefits Coordinator ID - [id number] 02:27:20 Test Item Value Reference Range Interpretation Comments MAGNESIUM (BEAKER) (test code = 1.6 mg/dL 1.6-2.6 627) Benefits Coordinator ID - [id number] 02:27:20 Test Item Value Reference Range Interpretation Comments PHOSPHORUS (BEAKER) (test code = 3.0 mg/dL 2.3-4.7 604) Benefits Coordinator ID - BSBASIC METABOLIC [id number] 02:27:19 Test Item Value Reference Range Interpretation [...] S NOT APPLICABLE FOR DIALYSIS PATIEN TS. Benefits Coordinator ID - BSVANCOMYCIN LEVEL, [id number] 02:21:15 Test Item Value Reference Range Interpretation Comments VANCOMYCIN TROUGH (BEAKER) (test 22.5 ug/mL 10.0-20.0 H code = 522) Benefits Coordinator ID - BSCBC (HEMOGRAM ONLY)2021-09-30 02:04:23 Test [...] H (BEAKER) (test code = 413) POCT-GLUCOSE [id number] 20:56:24 Test Item Value Reference Range Interpretation Comments POC-GLUCOSE METER 187 mg/dL 70-110 H : TESTED A T [facility] 6720 (BEAKER) (test code = [place], 1538) [address]: Benefits Coordinator/Techni dakota ID = [id number] for HERLINDA VELASQUEZ CREATININE, RANDOM [id number] 19:52:48 Test Item Value Reference Range Interpretation Comments CREATININE URINE (BEAKER) (test 38.8 mg/dL code = 375) Reference Range: No NormalsOperator ID - BSPROTEIN, RANDOM [id number] 19:52:48 Test Item Value Reference Range Interpretation Comments PROTEIN, URINE (BEAKER) (test code = 25 mg/dL 0-14 H 1569) Benefits Coordinator ID - BSURINALYSIS W/ [id number] 18:44:32 Test Item Value Reference Range Interpretation [...] = 1521) SOURCE(BEAKER) (test code = 2795) Benefits Coordinator ID - [auto]Benefits Coordinator ID - techAmylase, body [id number] 09:10:30 Test Item Value Reference Range Interpretation Comments Amylase, Fluid (test 18 U/L code = 1795-4) IDALIA (test code = Absence of reference IDALIA) range indicates that normals have not been defined.Assay performance has not been validated for this type of specimen. Benefits Coordinator ID - [id number] [facility] [id number] 09:10:30 Test Item Value Reference Range Interpretation Comments AMYLASE FLUID (BEAKER) (test code = 18 U/L 350) Absence of reference range indicates that normals have not been defined.Assay performance has not been validated for this type of specimen.Benefits Coordinator ID - [id number] [id number] 08:52:13 Test Item Value Reference Range Interpretation Comments POC-GLUCOSE METER 103 mg/dL 70-110 : TESTED A T [facility] 6720 (BEAKER) (test code = DONNA CHARLES [place], 1538) [address]: Benefits Coordinator/Techni dakota ID = [id number] for DELMAR COOPER [id number] 05:58:12 Test Item Value Reference Range Interpretation Comments PHOSPHORUS (BEAKER) (test code = 3.7 mg/dL 2.3-4.7 604) Benefits Coordinator ID - BISI GHEPATIC FUNCTION [id number] 05:58:12 Test Item Value Reference Range Interpretation [...] (test code = 10 U/L 6-55 347) Benefits Coordinator ID - BISI GBASIC METABOLIC [id number] 05:58:11 Test Item Value Reference Range Interpretation [...] S NOT APPLICABLE FOR DIALYSIS PATIEN TS. Benefits Coordinator ID - BISI [id number] 05:58:11 Test Item Value Reference Range Interpretation Comments MAGNESIUM (BEAKER) (test code = 1.7 mg/dL 1.6-2.6 627) Benefits Coordinator ID - BISI GCBC (HEMOGRAM ONLY)2021-09-29 05:50:24 [...] BLOOD CELLS 1 /100 WBC 0-0 H (GENEVA) (test code = 413) PROTHROMBIN TIME/[id number] 05:37:22 Test Item Value Reference Range Interpretation Comments PROTIME (GENEVA) 15.2 seconds 11.9-14.2 H (test code = 759) INR (GENEVA) (test 1.22 See_Comment [Automat ed message] code = 370) The system SportSetter generated this result transmitted ref erence range: <=5.90. The reference range was not used to int erpret this result as normal/abnormal . RECOMMENDED COUMADIN/WARFARIN INR THERAPY RANGESSTANDARD DOSE: 2.0 - 3.0 Includes: PROPHYLAXIS for venous thrombosis, systemic embolization; TREATMENT for venous thrombosis and/or pulmonary embolus.HIGH RISK: Target INR is 2.5-3.5 for patients with mechanical heart valves.POCT-GLUCOSE [id number] 20:50:31 Test Item Value Reference Range Interpretation Comments POC-GLUCOSE METER 159 mg/dL 70-110 H : Notified RN/MD: (GENEVA) (test code = TESTED AT [facility] 9109 0752) [facility] [place], [address]: Benefits Coordinator/Techni dakota ID = [id number] for HEATH GRANDE RAD, CHEST, 1 VIEW, NON [id number] 19:15:00Reason for exam:->preop patient for OR tomorrowShould this be performed at the bedside?->Yes [facility] 2000 Sex: MFINAL REPORT History: preop patient for OR tomorrow. Surgery unspecified. Comparison: 09/27/2021 Findings: A single view of [...] Verified Date/Time: 09/28/2021 19:15:11 BLOOD CULTURE IDENTIFICATION [id number] 18:24:37 Test Item Value Reference Interpretation Comments Range LISTERIA MONOCYTOGENES Not detected Not detected (test code = 8691430) STAPHYLOCOCCUS (test Detected Not detected A Coagula se negative code = 0252277) Staph specie s (CoNS)- methici llin resistantFirst- line therapy: Vancom ycin MecA DETECTED Possible contamination. The likelihood of pathogenicity i s increased if th e organism is observed in multiple blood cultures obtain ed from separate venipunctures. Reference Range : Not Detected STAPHYLOCOCCUS AUREUS Not detected Not detected (test code = 0621972) STREPTOCOCCUS (test code Not detected Not detected = 2453372) STREPTOCOCCUS AGALACTIAE Not detected Not detected (GROUP B) (test code = 6145398) STREPTOCOCCUS PNEUMONIAE Not detected Not detected (test code = 2602278) STREPTOCOCCUS PYOGENES Not detected Not detected (GROUP A) (test code = 3558017) ACINETOBACTER BAUMANNII Not detected Not detected (test code = 7924077) HAEMOPHILUS INFLUENZAE Not detected Not detected (test code = 8791386) NEISSERIA MENINGITIDIS Not detected Not detected (test code = 2297749) ENTEROBACTERIACEAE (test Not detected Not detected code = 4648788) ENTEROBACTER CLOACOE Not detected Not detected COMPLEX (test code = 6186296) KLEBSIELLA OXYTOCA (test Not detected Not detected code = 4671835) KLEBSIELLA PNEUMONIAE Not detected Not detected (test code = 1650) PROTEUS (test code = Not detected Not detected 9496946) SERRATIA MARCESCENS Not detected Not detected (test code = 2850253) STACEY ALBICANS (test Not detected Not detected code = 3287870) STACEY GLABRATA (test Not detected Not detected code = 8359784) STACEY KRUSEI (test Not detected Not detected code = 9270143) STACEY PARAPSILOSIS Not detected Not detected (test code = 0949358) STACEY TROPICALIS (test Not detected Not detected code = 5391798) ESCHERICHIA COLI (test Not detected Not detected code = 8790789) METHICILLIN-RESISTANCE Detected Not detected A Note: Antimicrobial GENE (test code = resistance can 8491720) occur via multi ple mechanisms. A N ot Detected result for the FilmArray antimicrobial resistance gene assays does not indicate antimicrobial susceptibility. Subculturing is required for species identification and susceptibility testing of isolates. VANCOMYCIN-RESISTANCE GENE (test code = 4410592) CARBAPENEM-RESISTANCE GENE (test code = 3875990) ENTEROCOCCUS-BEAKER Not detected Not detected (test code = 5736324) PSEUDOMONAS Not detected Not detected AERUGINOSA-BEAKER (test code = 0080653) Other bacteria and resistance markers not targeted by this PCR panel cannot be excluded; therefore clinical correlation and follow up of serology, culture results, and other molecular studies is required. The results are not intended to be used as the sole means for clinical diagnosis or patient management decisions. This sample was tested at the [facility] using the IntroBridgeArray Blood Culture ID Panel. It is FDA cleared and has been verified and approved by the [facility] for clinical use. This laboratory is CLIA-certified and College ofAmerican Pathologists (CAP)-accredited to perform high complexity testing.HEMOGLOBIN AND [id number] 17:52:48 Test Item Value Reference Range Interpretation Comments HEMOGLOBIN (BEAKER) (test code = 7.2 GM/DL 13.7-17.5 L 410) HEMATOCRIT (BEAKER) (test code = 24.6 % 40.1-51.0 L 411) Benefits Coordinator ID - [id number] 12:45:54 Test Item Value Reference Range Interpretation Comments Amylase (test code = 32 U/L 25-125 1798-8) IDALIA (test code = IDALIA) Benefits Coordinator ID - PIAYA L Lab Interpretation (test Normal code = 29169-7) [facility] 12:45:54 Test Item Value Reference Range Interpretation Comments AMYLASE (BEAKER) (test code = 349) 32 U/L 25-125 Benefits Coordinator ID - PIAYA LPOCT-GLUCOSE [id number] 12:21:36 Test Item Value Reference Range Interpretation Comments POC-GLUCOSE METER 89 mg/dL 70-110 : TESTED A T [facility] 6720 (BEAKER) (test code = DONNA [place] [facility], 1538) [address]: Benefits Coordinator/Techni dakota ID = [id number] for Milena Wei POCT-GLUCOSE [id number] 07:58:39 Test Item Value Reference Range Interpretation Comments POC-GLUCOSE METER 101 mg/dL 70-110 : TESTED A T [facility] 6720 (BEAKER) (test code [place] [facility], = 1538) [address]: Benefits Coordinator/Techni dakota ID = [id number] for Martha Bell (CELLAVISION MANUAL DIFF)2021-09-28 06:59:01 [...] CONCENTRATION Adequate (CELLAVISION)(BEAKER) (test code = 3438) Benefits Coordinator ID - [id number] ID - Rebecca LimbrianmiladisRuth Ann comments: Slide comments: CBC W/PLT COUNT & AUTO [id number] 06:59:00 Test Item Value Reference Range Interpretation [...] 0-0 (BEAKER) (test code = 413) SARS-COV2/RT-PCR ([facility])2021-09-28 05:26:25 Test Item Value Reference Range Interpretation Comments SARS-COV2/RT-PCR Negative Negative The SARS-Co V-2 target (test code = nucleic acids a re not 3456908) detected in thi s specimen. Negative result [...] This SARS CoV-2 test is a rapid, real-time RT-PC R test intended for th e qualitative detection [...] Food, Drug and Cosmetic Act, 21 U.S.C. 360bbb-3(b)(1), unless the authorization is terminated or revoked sooner. Fact Sheet for Healthcare Providers: https://www.[employer] m/Documents/Xpert%20Xpress%20SARS%20CoV-2/Fact%20Sheets/3023802%56NVIH-MNK-8%20 HEALTHCARE%20PROVIDERS%20FACT%20SHEET.pdf Fact Sheet for Healthcare Patients: https://www.[employer]/Documents/Xpert%20Xp ress%20SARS%20CoV-2/Fact%20Sheets/3023801%43AQYA-PKI-0%20PATIENT%20FACT%20SHEET .pdfBASI METABOLIC [id number] 05:15:58 Test Item Value Reference Range Interpretation [...] S NOT APPLICABLE FOR DIALYSIS PATIEN TS. Benefits Coordinator ID - [id number] 04:33:33 Test Item Value Reference Range Interpretation Comments PHOSPHORUS (BEAKER) (test code = 4.1 mg/dL 2.3-4.7 604) Benefits Coordinator ID - BSHEPATIC FUNCTION [id number] 04:33:33 Test Item Value Reference Range Interpretation [...] (test code = 11 U/L 6-55 347) Benefits Coordinator ID - [id number] 04:33:32 Test Item Value Reference Range Interpretation Comments MAGNESIUM (BEAKER) (test code = 1.5 mg/dL 1.6-2.6 L 627) Benefits Coordinator ID - BSLACTIC ACID, [id number] 04:27:30 Test Item Value Reference Range Interpretation Comments LACTATE BLOOD VENOUS (2) (BEAKER) 1.04 mmol/L 0.50-2.20 (test code = 2872) Benefits Coordinator ID - BSPROTHROMBIN TIME/[id number] 04:23:49 Test Item Value Reference Range Interpretation Comments PROTIME (BEAKER) 15.5 seconds 11.9-14.2 H (test code = 759) INR (BEAKER) (test 1.25 See_Comment [Automat ed message] code = 370) The system SportSetter generated this result transmitted ref erence range: <=5.90. The reference range was not used to int erpret this result as normal/abnormal . RECOMMENDED COUMADIN/WARFARIN INR THERAPY RANGESSTANDARD DOSE: 2.0 - 3.0 Includes: PROPHYLAXIS for venous thrombosis, systemic embolization; TREATMENT for venous thrombosis and/or pulmonary embolus.HIGH RISK: Target INR is 2.5-3.5 for patients with mechanical heart valves.CT, [id number] 00:01:00Unlisted Reason for Exam - Click Yes and Enter Reason Below->YesUnlisted Reason for Exam->necrotizing panc on OSH imagingIs this for enterography?->NoWill this procedure require oral contrast?->No [facility] : 2000 Sex: MFINAL REPORT [...] on the right. HEPATOBILIARY: No focal hepatic lesions.There is fatty infiltration of liver parenchyma. Gallbladder is unremarkable. No biliary ductal dilatation.SPLEEN: Splenomegaly with length of 14.8 cm.PANCREAS: Large volume of peripancreatic fluid containing interspersed ectopic gas new compared to prior. There is organizing collection containing gasin the right lower quadrant inferior to the right hepatic lobe that has measurements of 12.6 x 7.1 x13.2 cm and an additional collection possibly in continuity in the right upper quadrant abutting theliver with measurements of 14.0 x 7.9 x 10.0 cm. There is a collection containing air-fluid level adjacent to several loops of small bowel in the left upper quadrant anteriorly with measurements of 4.2x 3.7 x 3.8 cm. Collection left abdomen abutting the spleen extending towards the left paracolic gutter with measurements of 4.2 x 3.8 x 10.2 cm. Remainder of the fluid does not appear organized. Thereis no ductal dilatation. ADRENALS: No adrenal nodules.KIDNEYS/URETERS: No hydronephrosis, stones, ormasses.PELVIC ORGANS/BLADDER: Unremarkable. PERITONEUM/RETROPERITONEUM: As above.LYMPH NODES: No lymphadenopathy.VESSELS: Unremarkable. GI TRACT: No distention or wall thickening. Appendix not seen. Noevidence of appendicitis. BONES AND SOFT TISSUES: No acute osseous abnormality. Soft tissues are unremarkable. IMPRESSION:Necrotizing pancreatitis with large volume of free fluid containing interspersed ectopic gas concerning for superimposed infection. There are organizing collections in the right upper and lower quadrants as well as the left upper quadrant compatible with developing walled off necrosis. Hepatic steatosis and splenomegaly. Signed: Gokul Encarnacion [facility] Centerort Verified Date/Time: 09/28/2021 00:01:32 (CELLAVISION MANUAL DIFF)2021-09-27 [...] CONCENTRATION Adequate (CELLAVISION)(BEAKER) (test code = 3438) Benefits Coordinator ID - Romelia Tamez comments: Slide comments:COMPREHENSIVE METABOLIC [id number] 22:28:04 Test Item Value Reference Range Interpretation [...] S NOT APPLICABLE FOR DIALYSIS PATIEN TS. Benefits Coordinator ID - [id number] 22:28:04 Test Item Value Reference Range Interpretation Comments LIPASE (BEAKER) (test code = 749) 24 U/L 8-78 Benefits Coordinator ID - BSLACTIC ACID, [id number] 22:22:02 Test Item Value Reference Range Interpretation Comments LACTATE BLOOD VENOUS 1.20 mmol/L 0.50-2.20 Specime n slightly (2) (BEAKER) (test hemolyzed code = 3400) Benefits Coordinator ID - BSPROTHROMBIN TIME/[id number] 22:18:27 Test Item Value Reference Range Interpretation Comments PROTIME (BEAKER) 15.2 seconds 11.9-14.2 H (test code = 759) INR (BEAKER) (test 1.22 See_Comment [Automat ed message] code = 370) The system SportSetter generated this result transmitted ref erence range: <=5.90. The reference range was not used to int erpret this result as normal/abnormal . RECOMMENDED COUMADIN/WARFARIN INR THERAPY RANGESSTANDARD DOSE: 2.0 - 3.0 Includes: PROPHYLAXIS for venous thrombosis, systemic embolization; TREATMENT for venous thrombosis and/or pulmonary embolus.HIGH RISK: Target INR is 2.5-3.5 for patients with mechanical heart valves.CBC W/PLT COUNT & AUTO [id number] 22:11:15 Test Item Value Reference Range Interpretation [...] = 413) RAD, CHEST, 1 VIEW, NON [id number] 21:03:00Reason for exam:->ABNORMAL IMAGING RESULTShould this be performed at the bedside?->Yes [facility] : 2000 Sex: MFINAL REPORT TECHNIQUE: Frontal view of the chest. INDICATION: ABNORMAL IMAGING RESULT. COMPARISON: 09/10/2021. FINDINGS: LINES/TUBES: None. HEART AND MEDIASTINUM: Cardiomediastinal contour is within normal limits. LUNGS: The lungs are well inflated and clear. No consolidation or pulmonary edema. PLEURA: No pneumothorax. No significant pleural effusion. SOFT TISSUES AND BONES: Unremarkable. IMPRESSION:No acute cardiopulmonary process. Signed: Andrés Holloway [facility] Verified Date/Time: 09/27/2021 21:03:24 - CT ABDOMEN W W/O CONTRAST 2021-09-27 15:48:00 [facility] 2000 Sex: M FAX: Willard Vaughn Jr [phone] [place]: St: REG Name: VANGIE OVALLE [facility] : 2000 Age/S: 21/M [address] Unit: [id number] Loc: [place] [address] Phys: Willard Crouch Jr, MD Acct: [id number] Dis Date: Status: REG CLI PHONE #: [phone] Exam Date: 09/27/2021 1530 FAX #: [phone] Reason: PANCREATITIS EXAMS: CPT CODE: [id number] CT ABDOMEN W W/O CONTRAST 01094 EXAM: CT ABDOMEN WITH AND WITHOUT CONTRAST INDICATION: History of chronic pancreatitis with acute pain, fever. History of lupus LOCATION: B2 COMPARISON: None TECHNIQUE: CT of the abdomen was performed before and after 95mL of Isovue-[address] scans are performed using radiation dose reduction technique. Technical factors are evaluated and adjusted to insure appropriate moderation of exposure. Automated dose management technology is applied to adjust the radiation dose to minimize exposure whileachieving a diagnostic quality image. Total DLP of 1652 mGy-cm. GFR greater than 60 FINDINGS: Lung b ases: Bibasilar atelectasis. The heart is slightly enlarged with small pericardial effusion. Hepatobiliary: Markedly fatty liver. No obvious liver mass. Multiple splenic granulomas. No calcified gallstones or biliary obstruction. Pancreas: The pancreas is slightly heterogeneous in enhancement with irregular margins. Extensive enhancing peripancreatic fluid with large amount of extraluminal air is seen extending into the lesser sac and insinuating along both paracolic gutters. Intraloop fluid and pelvic fluid present. A small air-fluid level is seen in the subhepatic space. Adrenals: Unremarkable. : No renal mass or hydronephrosis. GI: Centralized bowel without bowel obstruction or pneumoperitoneum. No bowel-containing hernias. Retroperitoneum and pelvis: Aorta and IVC appear patent. Bones and soft tissues: No acute osseous abnormalities. Mild dependent anasarca. PAGE 1 Signed Report (CONTINUED) FAX: Willard Vaughn Jr [phone] [place]: St: REG Name: YAMILEVANGIE [facility] : 2000 Age/S: 21/M [address] Unit: [id number] Loc: [place] [address] Phys: Willard Crouch Jr, MD Acct: [id number] Dis Date: Status: REG CLI PHONE #: [phone] Exam Date: 09/27/2021 1530 FAX #: [phone] Reason: PANCREATITIS EXAMS: CPT CODE: [id number] CT ABDOMEN W W/O CONTRAST 05704 (Continued) IMPRESSION: 1. Slight heterogeneous enhancement of the pancreas with disproportionate amount of extensive enhancing loculated fluid and large amount of extraluminal air in the abdomen and upper pelvis. Air-fluid level in the right paracolic gutter with interloop fluid. FINDINGS are likely a combination ofnecrotizing pancreatitis with peritonitis. 2. No evidence for bowel obstruction or pneumoperitoneum.3. Bibasilar atelectasis and small pericardial effusion. 4. Markedly fatty liver. FINDINGS were called to Dr. Pepper by Dr. Madison at 3:45 PM. FOR INTERNAL CODING PURPOSES ONLY RESULT CODE: CVR at 1542 Reported and signed by: Vandana Madison MD CC: Willard Crouch Jr Technologist: LAMBERTO ARTEAGA Trnscrd Dt/Tm: 09/27/2021 (5118) [email or web address] Orig Print D/T: S: 09/27/2021 (1807 PAGE 2 Signed ReportBEDSIDE [id number] 15:20:00 Test Item Value Reference Range Interpretation Comments BEDSIDE CREATININE (test code = 0.7 MG/DL 0.5-1.0 N CREATBED) Fecal [id number] 22:49:02 Test Item Value Reference Range Interpretation Comments Fecal Leukocytes (test No fecal leukocytes No fecal leukocytes code = 48712-4) seen seen Lab Interpretation Normal (test code = 46628-5) [facility] CenterFECAL [id number] 22:49:02 Test Item Value Reference Range Interpretation Comments FECAL LEUKOCYTES No fecal leukocytes No fecal leukocytes (BEAKER) (test code = seen seen 992) POCT-GLUCOSE [id number] 16:36:44 Test Item Value Reference Range Interpretation Comments POC-GLUCOSE METER 204 mg/dL 70-110 H : TESTED A T [facility] 6720 (BEAKER) (test code = [facility], 1538) [address]: Benefits Coordinator/Techni dakota ID = [id number] for Co ok, Susanna POCT-GLUCOSE [id number] 11:38:42 Test Item Value Reference Range Interpretation Comments POC-GLUCOSE METER 122 mg/dL 70-110 H : TESTED A T [facility] 6720 (BEAKER) (test code = [facility], 1538) [address]14: Benefits Coordinator/Techni dakota ID = [id number] for Co [place], Susanna BASIC METABOLIC [id number] 08:51:41 Test Item Value Reference Range Interpretation [...] S NOT APPLICABLE FOR DIALYSIS PATIEN TS. Benefits Coordinator ID - DBPOCT-GLUCOSE [id number] 07:42:10 Test Item Value Reference Range Interpretation Comments POC-GLUCOSE METER 100 mg/dL 70-110 : TESTED A T [facility] 6720 (BEAKER) (test code = [facility], 1538) [address]: Benefits Coordinator/Techni dakota ID = [id number] for Co ok, Susanna [id number] 06:05:53 Test Item Value Reference Range Interpretation Comments MAGNESIUM (BEAKER) (test code = 1.5 mg/dL 1.6-2.6 L 627) Benefits Coordinator ID - DBPOCT-GLUCOSE [id number] 22:10:06 Test Item Value Reference Range Interpretation Comments POC-GLUCOSE METER 226 mg/dL 70-110 H : TESTED A T [facility] 6720 (BEAKER) (test code = [facility], 1538) 299[address]: Benefits Coordinator/Techni dakota ID = [id number] for Guanakito Banks (contract), Maribel i POCT-GLUCOSE [id number] 17:25:35 Test Item Value Reference Range Interpretation Comments POC-GLUCOSE METER 167 mg/dL 70-110 H : TESTED A T [facility] 6720 (BEAKER) (test code = [facility], 1538) [address]: Benefits Coordinator/Techni dakota ID = [id number] for Co Jeffrey cesarrina POCT-GLUCOSE [id number] 11:53:31 Test Item Value Reference Range Interpretation Comments POC-GLUCOSE METER 84 mg/dL 70-110 : TESTED A T [facility] 6720 (BEAKER) (test code = [facility], 1538) 38[address]: Benefits Coordinator/Techni dakota ID = [id number] for Susanna Light POCT-GLUCOSE [id number] 07:47:58 Test Item Value Reference Range Interpretation Comments POC-GLUCOSE METER 91 mg/dL 70-110 : TESTED A T [facility] 6720 (BEAKER) (test code = [facility], 1538) 41814: Benefits Coordinator/Techni dakota ID = [id number] for Susanna Light [id number] 05:26:53 Test Item Value Reference Range Interpretation Comments FERRITIN (BEAKER) (test code = 1277.07 ng/mL 5.00-275.00 H 361) Benefits Coordinator ID - ALVINA [id number] 05:16:29 Test Item Value Reference Range Interpretation Comments MAGNESIUM (BEAKER) 1.5 mg/dL 1.6-2.6 L Specimen slightly (test code = 627) hemolyzed Benefits Coordinator ID - BSCOMPREHENSIVE METABOLIC [id number] 05:16:29 Test Item Value Reference Range Interpretation [...] S NOT APPLICABLE FOR DIALYSIS PATIEN TS. Benefits Coordinator ID - BSCBC W/PLT COUNT & AUTO [id number] 05:09:25 Test Item Value Reference Range Interpretation [...] PERCENT (BEAKER) (test code = 2801) POCT-GLUCOSE [id number] 23:08:33 Test Item Value Reference Range Interpretation Comments POC-GLUCOSE METER 180 mg/dL 70-110 H : TESTED Daphne Miller [facility] 6720 (BEAKER) (test code = [facility] Ishaan [facility], 1538) [address]: Benefits Coordinator/Techni dakota ID = [id number] for CAROLINA LENZ Giardia [id number] 19:26:40 Test Item Value Reference Range Interpretation Comments STATUS: FINAL (QUEST) (test code = 7656789) RESULT: Not Detected Reference Range :Not (QUEST) (test Detected code = 6171641) Source: (test STOOL code = 88028-0) Comment: See Below NOTE: Due to (test code = intermittent sh edding, ) one negativesam ple does not necess arily rule out the presenceof a pa rasitic infection. IDALIA (test Performing Lab *JESSENIA code = IDALIA) [employer], [address] [place] [phone] Angela Barcenas MD [facility] CenterPOCT[facility]GLU[facility]SE [id number] 15:54:55 Test Item Value Reference Range Interpretation Comments POC-GLUCOSE METER 302 mg/dL 70-110 H : TESTED A T [facility] 6720 (BEAKER) (test code = [place] [facility], 1538) [address]: Benefits Coordinator/Techni dakota ID = [id number] for Je ssie, Kevin POCT-GLUCOSE [id number] 11:59:06 Test Item Value Reference Range Interpretation Comments POC-GLUCOSE METER 118 mg/dL 70-110 H : TESTED A T [facility] 6720 (BEAKER) (test code = [place] [facility], 1538) 57[address]: Benefits Coordinator/Techni dakota ID = [id number] for Je ssie, Kevin Ova and Parasite [id number] 10:29:02See scanned reportCHI Northbay Vacavalley HospitalPOCT-GLUCOSE [id number] 08:15:03 Test Item Value Reference Range Interpretation Comments POC-GLUCOSE METER 153 mg/dL 70-110 H : TESTED A T [facility] 6720 (BEAKER) (test code = [facility] Ishaan [facility], 153) [address]: Benefits Coordinator/Techni dakota ID = [id number] for Je ssie, Kevin [id number] 05:39:21 Test Item Value Reference Range Interpretation Comments FERRITIN (BEAKER) (test code = 2065.19 ng/mL 5.00-275.00 H 361) Benefits Coordinator ID - ALVINA MOperator ID - ALVINA [id number] 04:33:07 Test Item Value Reference Range Interpretation Comments MAGNESIUM (BEAKER) (test code = 1.7 mg/dL 1.6-2.6 627) Benefits Coordinator ID - ALVINA MCOMPREHENSIVE METABOLIC [id number] 04:33:06 Test Item Value Reference Range Interpretation [...] S NOT APPLICABLE FOR DIALYSIS PATIEN TS. Benefits Coordinator ID - ALVINA MCBC W/PLT COUNT & AUTO [id number] 04:05:50 Test Item Value Reference Range Interpretation [...] PERCENT (BEAKER) (test code = 2801) POCT-GLUCOSE [id number] 22:26:51 Test Item Value Reference Range Interpretation Comments POC-GLUCOSE METER 263 mg/dL 70-110 H : TESTED A T [facility] 6720 (BEAKER) (test code = [place] [facility], 1538) 34265: Benefits Coordinator/Techni dakota ID = [id number] for Cherry Morrissey POCT-GLUCOSE [id number] 17:52:33 Test Item Value Reference Range Interpretation Comments POC-GLUCOSE METER 320 mg/dL 70-110 H : TESTED A T [facility] 6720 (BEAKER) (test code [facility], = 1538) 76222: Benefits Coordinator/Techni dakota ID = [id number] for SD GALLO [id number] 16:04:21 Test Item Value Reference Range Interpretation Comments MAGNESIUM (BEAKER) (test code = 1.6 mg/dL 1.6-2.6 627) Benefits Coordinator ID - BSPOCT-GLUCOSE [id number] 13:44:43 Test Item Value Reference Range Interpretation Comments POC-GLUCOSE METER 243 mg/dL 70-110 H : TESTED A T [facility] 6720 (BEAKER) (test code [facility], = 1538) 23070: Benefits Coordinator/Techni dakota ID = [id number] for SD GALLO ANTI-DNA [id number] 12:19:23 Test Item Value Reference Range Interpretation Comments ANTI-DNA TITER (BEAKER) (test code = :80 1553) DOUBLE-STRANDED DNA (DSDNA) [id number] 12:19:05 Test Item Value Reference Range Interpretation Comments ANTI-DNA DS (BEAKER) (test code = Positive Negative 1055) SARS-COV2/RT-PCR ([facility])2021-09-19 10:54:11 Test Item Value Reference Range Interpretation Comments SARS-COV2/RT-PCR (test Negative Not Detected, Negative, code = 6922018) See external report for linked test SARS-COV-2 PERFORMING LAB [facility] SHAUNA (test code = 0834785) Negative result for this test determines that [...] justifying the authorization of the emergency use ofin vitro diagnostic tests for detection and/or diagnosis of COVID-19 is terminated under Section 564(b)(2) of the Act or the EUA is revoked under Section 564(g) of the Act.Fact Sheet for Healthcare Prov iders:https://www.[employer]/sites/default/files/product/documents/Fact_Sheet_HC _Ztdadfewj_Hcqf_OPXK-DeY-2.pdfFact Sheet for Healthcare Patients:https://www.[employer]/sites/default/files/product/docume nts/Lzgt_Dqcqt_Frsenwqg_Tknr_ZHOS-KkF-2.pdfPerforming Laboratory:[facility], [place] [address]DJCM-SXBSFHZ METER 2021-09-19 08:21:15 Test Item Value Reference Range Interpretation Comments POC-GLUCOSE METER 228 mg/dL 70-110 H : TESTED Daphne Miller [facility] 6720 (BEAKER) (test code [place] [facility], = 1538) 19052: Benefits Coordinator/Techni dakota ID = [id number] for SD GALLO2022-05-03 08:08:54 Test Item Value Reference Range Interpretation Comments MAGNESIUM (BEAKER) (test code = 1.4 mg/dL 1.6-2.6 L 627) Benefits Coordinator ID - BRANDIN CCOMPREHENSIVE METABOLIC [id number] 08:08:53 Test Item Value Reference Range Interpretation [...] S NOT APPLICABLE FOR DIALYSIS PATIEN TS. Benefits Coordinator ID - BRANDIN [id number] 07:30:23 Test Item Value Reference Range Interpretation Comments FERRITIN (BEAKER) (test code = 2272.75 ng/mL 5.00-275.00 H 361) Benefits Coordinator ID - SHREE WOperator ID - SHREE WCBC W/PLT COUNT & AUTO [id number] 06:07:16 Test Item Value Reference Range Interpretation [...] 417) IMMATURE GRANULOCYTES-RELATIVE 1 % 0-1 PERCENT (AKER) (test code = 2801) POCT-GLUCOSE [id number] 21:42:25 Test Item Value Reference Range Interpretation Comments POC-GLUCOSE METER 218 mg/dL 70-110 H : TESTED A T [facility] 6720 ([facility]) (test code = DONNA [place] [facility], 1538) 02147: Benefits Coordinator/Techni dakota ID = [id number] for ABE TEJADA POCT-GLUCOSE [id number] 17:08:14 Test Item Value Reference Range Interpretation Comments POC-GLUCOSE METER 148 mg/dL 70-110 H : TESTED A T [facility] 6720 ([facility]) (test code [place] [facility], = 1538) 65472: Benefits Coordinator/Techni dakota ID = [id number] for DOMENICO JOSEDONNY Cherelle [place] MISCELLANEOUS LAB [id number] 14:26:25 Test Item Value Reference Range Interpretation Comments SCAN RESULT (test code = See scanned report [id number]) See scanned reportCMV PCR, [id number] 14:23:40 Test Item Value Reference Range Interpretation Comments CMV VIRAL LOAD - Negative or below See_Comment [Auto mated message] NEGATIVE ([facility] the linear range The sy stem which [...] management of antiviral therapy. For treatment of CMV infection due to reactivation in transplant recipients, a threshold between 4,000 and 5,000 copies/mLis suggested. For treatment of primary CMV infection, a lower threshold can be used.CMV infection may also be monitored using weekly serial measurements. Serial measurements of CMV DNA viral load can be evaluated by identifying a 10-fold change, as well as assessing the CMV DNA viral load and the clinical context for each patient.The plasma CMV DNA viral load was detected using quantitative polymerase chain reaction and fluorescent monitoring of a specific hybridized probe. Genetic variation and other factors can affect the accuracy of nucleic acid testing. Therefore, the results should be interpreted in light of clinical data. A negative result may not exclude the presence of CMV disease.This test was developed and its performance characteristics determined by the [facility] Pathol ogy Department, Section of Molecular Pathology. It has not been cleared or approved by the U.S. Foodand Drug Administration (FDA), since FDA approval is not required for clinical use of the test. Validation was done as required by The Clinical Laboratory Improvement Amendments of 1988.POCT-GLUCOSE METER 2021-09-18 12:26:30 Test Item Value Reference Range Interpretation Comments POC-GLUCOSE METER 120 mg/dL 70-110 H : TESTED Daphne Miller [facility] 6720 (BEEQO) (test code [facility], = 1538) 97211: Benefits Coordinator/Techni dakota ID = [id number] for SD GALLO MISCELLANEOUS LAB [id number] 09:55:02 Test Item Value Reference Range Interpretation Comments SCAN RESULT (test code = See scanned report [id number]) See scanned reportPOCT-GLUCOSE [id number] 09:36:32 Test Item Value Reference Range Interpretation Comments POC-GLUCOSE METER 99 mg/dL 70-110 : TESTED Daphne Miller [facility] 67[facility] (BEEQO) (test code = [place] [facility], 1538) 70913: Benefits Coordinator/Techni dakota ID = [id number] for SD GALLO COMPREHENSIVE METABOLIC [id number] 07:28:53 Test Item Value Reference Range Interpretation [...] S NOT APPLICABLE FOR DIALYSIS PATIEN TS. Benefits Coordinator ID - [id number] 07:28:52 Test Item Value Reference Range Interpretation Comments MAGNESIUM (BEAKER) 1.3 mg/dL 1.6-2.6 L Specimen slightly (test code = 627) hemolyzed Benefits Coordinator ID - DBCBC W/PLT COUNT & AUTO [id number] 07:26:37 Test Item Value Reference Range Interpretation [...] PERCENT (BEAKER) (test code = 2801) POCT-GLUCOSE [id number] 22:29:02 Test Item Value Reference Range Interpretation Comments POC-GLUCOSE METER 207 mg/dL 70-110 H : TESTED A T [facility] 6720 (BEAKER) (test code = [place], 1538) 56405: Benefits Coordinator/Techni dakota ID = [id number] for CAROLINA LENZ POCT-GLUCOSE [id number] 17:18:02 Test Item Value Reference Range Interpretation Comments POC-GLUCOSE METER 228 mg/dL 70-110 H : TESTED A T [facility] 6720 (BEAKER) (test code = [facility], 1538) 38336: Benefits Coordinator/Techni dakota ID = [id number] for FA KAREN CASEY POCT-GLUCOSE [id number] 12:29:44 Test Item Value Reference Range Interpretation Comments POC-GLUCOSE METER 174 mg/dL 70-110 H : TESTED A T [facility] 6720 (BEAKER) (test code = [facility], 1538) 23582: Benefits Coordinator/Techni dakota ID = [id number] for FA KAREN CASEY POCT-GLUCOSE [id number] 12:15:50 Test Item Value Reference Range Interpretation Comments POC-GLUCOSE METER 111 mg/dL 70-110 H : TESTED A T [facility] 6720 (BEAKER) (test code = [facility], 1538) 04043: Benefits Coordinator/Techni dakota ID = [id number] for MASON LINK GI Pathogen Profile by PCR -ID [id number] 08:09:12 Test Item Value Reference Range Interpretation Comments CAMPYLOBACTER (PCR) Not detected Not detected (test code = 02291-2) PLESIOMONAS SHIGELLOIDES Not detected Not detected (PCR) (test code = 92621-3) SALMONELLA (PCR) (test Not detected Not detected code = 02510-3) YERSINIA ENTEROCOLITICA Not detected Not detected (PCR) (test code = 40780-8) VIBRIO CHOLERAE (PCR) Not detected Not detected (test code = 72178-4) ENTEROAGGREGATIVE E. Not detected Not detected COLI (EAEC) BY PCR (test code = 24359-0) ENTEROPATHOGENIC E. COLI Not detected Not detected (EPEC) BY PCR (test code = 33048-5) ENTEROTOXIGENIC E. COLI Not detected Not detected (ETEC) LT/ST BY PCR (test code = 11483-3) SHIGA-LIKE Not detected Not detected TOXIN-PRODUCING E. COLI (STEC) STX1/STX2 (test code = 28877-4) E. COLI O157 (PCR) (test code = 03411-1) SHIGELLA/ENTEROINVASIVE Not detected Not detected E. COLI (EIEC) BY PCR (test code = 71716-3) CRYPTOSPORIDIUM (PCR) Not detected Not detected (test code = 59790-8) CYCLOSPORA CAYETANENSIS Not detected Not detected (PCR) (test code = 57834-0) ENTAMOEBA HISTOLYTICA Not detected Not detected (PCR) (test code = 96511-7) GIARDIA LAMBLIA (PCR) Not detected Not detected (test code = 08055-2) ADENOVIRUS F 40/41 (PCR) Not detected Not detected (test code = 88021-6) ASTROVIRUS (PCR) (test Not detected Not detected code = 08544-3) NOROVIRUS GI/GII (PCR) Not detected Not detected (test code = 27993-7) ROTAVIRUS A (PCR) (test Not detected Not detected code = 43836-9) SAPOVIRUS (I, II, IV, V) Not detected Not detected BY PCR (test code = 35680-9) VIBRIO Not detected Not detected (PARAHAEMOLYTICUS, VULNIFICUS) (test code = 63914-6) IDALIA (test code = IDALIA) Other viruses, parasites and bacteria not targeted by this PCR panel cannot be excluded; therefore clinical correlation and follow up of serology, culture results, and other molecular studies is required. The results are not intended to be used as the sole means for clinical diagnosis or patient management decisions. This sample was tested at the [facility] Molecular Diagnostics Laboratory using the IntroBridgeArray Gastrointestinal Panel. It is FDA cleared and has been verified and approved by the [facility] Molecular Diagnostics Laboratory for clinical use. This laboratory is CLIA-certified and [employer] [place] [employer] (CAP)-accredited to perform high complexity testing. [facility] BY [id number] 08:09:12 Test Item Value Reference Range Interpretation [...] Not detected BY PCR (test code = 20151221) ENTEROPATHOGENIC E. COLI (EPEC) Not detected Not detected BY PCR (test code = 2276474) ENTEROTOXIGENIC E. COLI (ETEC) Not detected Not detected LT/ST BY PCR (test code = 8053792) SHIGA-LIKE TOXIN-PRODUCING E. Not detected Not detected COLI (STEC) STX1/STX2 (test code = 3434268) E. COLI O157 (PCR) (test code = 8511718) SHIGELLA/ENTEROINVASIVE E. COLI Not detected Not detected (EIEC) BY PCR (test code = 2052356) CRYPTOSPORIDIUM (PCR) (test code Not detected Not detected = 20151227) CYCLOSPORA CAYETANENSIS (PCR) Not detected Not detected (test code = 4882091) ENTAMOEBA HISTOLYTICA (PCR) Not detected Not detected (test code = 20160119) GIARDIA LAMBLIA (PCR) (test code Not detected Not detected = 20160120) ADENOVIRUS F 40/41 (PCR) (test Not detected Not detected code = 20160121) ASTROVIRUS (PCR) (test code = Not detected Not detected 20160122) NOROVIRUS GI/GII (PCR) (test Not detected Not detected code = 20160123) ROTAVIRUS A (PCR) (test code = Not detected Not detected 20160124) SAPOVIRUS (I, II, IV, V) BY PCR Not detected Not detected (test code = 20160125) VIBRIO (PARAHAEMOLYTICUS, Not detected Not detected VULNIFICUS) (test code = ) Other viruses, parasites and bacteria not targeted by this PCR panel cannot be excluded; therefore clinical correlation and follow up of serology, culture results, and other molecular studies is required. The results are not intended to be used as the sole means for clinical diagnosis or patient management decisions. This sample was tested at the [facility] Molecular Diagnostics Laboratory using the IntroBridgeArray Gastrointestinal Panel. It is FDA cleared and has been verified and approved by the [facility] Molecular Diagnostics Laboratory for clinical use. This laboratory is CLIA-certified and College ofAmerican Pathologists (CAP)-accredited to perform high complexity testing.POCT-GLUCOSE [id number] 08:04:19 Test Item Value Reference Range Interpretation Comments POC-GLUCOSE METER 141 mg/dL 70-110 H : TESTED A T [facility] 6720 (BEAKER) (test code = [place], 1538) 67638: Benefits Coordinator/Techni dakota ID = [id number] for CASEY KERNS [id number] 07:09:55 Test Item Value Reference Range Interpretation Comments MAGNESIUM (BEAKER) (test code = 1.6 mg/dL 1.6-2.6 627) Benefits Coordinator ID - DBCOMPREHENSIVE METABOLIC [id number] 07:09:54 Test Item Value Reference Range Interpretation [...] S NOT APPLICABLE FOR DIALYSIS PATIEN TS. Benefits Coordinator ID - [id number] 06:53:54 Test Item Value Reference Range Interpretation Comments FERRITIN (BEAKER) (test code = 1616.89 ng/mL 5.00-275.00 H 361) Benefits Coordinator ID - SHREE WCBC W/PLT COUNT & AUTO [id number] 06:20:10 Test Item Value Reference Range Interpretation [...] PERCENT (BEAKER) (test code = 2801) POCT-GLUCOSE [id number] 22:18:47 Test Item Value Reference Range Interpretation Comments POC-GLUCOSE METER 255 mg/dL 70-110 H : TESTED A T [facility] 6720 (BEAKER) (test code = [facility], 1538) 20946: Benefits Coordinator/Techni dakota ID = [id number] for Cherry Morrissey POCT-GLUCOSE [id number] 17:41:27 Test Item Value Reference Range Interpretation Comments POC-GLUCOSE METER 160 mg/dL 70-110 H : TESTED A T [facility] 6720 (BEAKER) (test code = [facility], 1538) 53763: Benefits Coordinator/Techni dakota ID = [id number] for MASON LINK POCT-GLUCOSE [id number] 11:47:30 Test Item Value Reference Range Interpretation Comments POC-GLUCOSE METER 126 mg/dL 70-110 H : TESTED A T [facility] 6720 (BEAKER) (test code = [facility], 1538) 55329: Benefits Coordinator/Techni dakota ID = [id number] for MASON LINK [id number] 11:09:58 Test Item Value Reference Range Interpretation Comments FERRITIN (BEAKER) (test code = 1216.61 ng/mL 5.00-275.00 H 361) Benefits Coordinator ID - FATMATA WBLOOD [id number] 10:00:55 Test Item Value Reference Range Interpretation Comments CULTURE (BEAKER) (test No growth in 5 days code = 1095) The specimen volume collected for this blood culture was below the optimum (10 mL per bottle or 20 mL total). Use of lower volumes may adversely affect recovery and/or detection times of some organisms.CBC W/PLT COUNT & AUTO [id number] 07:57:54 Test Item Value Reference Range Interpretation [...] 0-1 H PERCENT (BEAKER) (test code = 2806) COMPREHENSIVE METABOLIC [id number] 07:37:26 Test Item Value Reference Range Interpretation [...] S NOT APPLICABLE FOR DIALYSIS PATIEN TS. Benefits Coordinator ID - [id number] 07:37:26 Test Item Value Reference Range Interpretation Comments MAGNESIUM (BEAKER) (test code = 1.5 mg/dL 1.6-2.6 L 627) Benefits Coordinator ID - DBClostridium difficile GDH [id number] 23:10:55 Test Item Value Reference Range Interpretation Comments C. Difficle Toxin Negative Negative (test code = 6241126739) C. Difficile GDH Positive Negative A C. difficil e Antigen (test code = present but toxin 4036331402) not detected. Indicates colonization wi th non-toxigenic strain or level of toxin below detectable levels. No need for enteric isolation. Treatment is rarely needed (only when stro ng clinical suspicion for Clostridium difficile infection) IDALIA (test code = Testing performed IDALIA) by Alere Rapid Cassette Assay. For GDH, published sensitivity of the assay is 98.7% compared to cytotoxicity testing. For Toxin AB, published sensitivity is 87.8% and specificity 99.4% compared to cytotoxicity testing.Verificati on of kit performance was done by the [facility] Microbiology Lab prior to clinical use. Lab Interpretation Abnormal (test code = 13489-7) [facility]. DIFFICILE GDH [id number] 23:10:55 Test Item Value Reference Range Interpretation Comments CDT TOXIN (test code Negative Negative = 1313964418) CDT GDH ANTIGEN Positive Negative A C. difficile present but (test code = toxin not detec hernandez. 5700864785) Indicates colon ization with non-toxige luis antonio strain or level of tox in below detectable leve ls. No need for enteri c isolation. Ashlee tment is rarely needed ( only when strong clinical suspicion for Clostridium difficile infection) Testing performed by Alere Rapid Cassette Assay. For GDH, published sensitivity of the assay is 98.7% compared to cytotoxicity testing. For Toxin AB, published sensitivity is 87.8% and specificity 99.4% compared to cytotoxicity testing.Verification of kit performance was done by the [facility] MicrobiologyLab prior to clinical use.POCT-GLUCOSE [id number] 21:40:07 Test Item Value Reference Range Interpretation Comments POC-GLUCOSE METER 144 mg/dL 70-110 H : TESTED A T [facility] (Intoo) ([facility] = [facility] 56597: Benefits Coordinator/Techni dakota ID = [id number] for ABE TEJADA POCT-GLUCOSE [id number] 19:13:38 Test Item Value Reference Range Interpretation Comments POC-GLUCOSE METER 71 mg/dL 70-110 : [facility] T [facility] (Intoo) (test code = Nature's TherapyIA Haier [facility], 153) 72955: Benefits Coordinator/Techni dakota ID = [id number] for MASON URIOSTEGUI POCT-GLUCOSE [id number] 17:28:46 Test Item Value Reference Range Interpretation Comments POC-GLUCOSE METER 156 mg/dL 70-110 H : TESTED A T [facility] 6720 (BEAKER) (test code = [place], 1538) 52700: Benefits Coordinator/Techni dakota ID = [id number] for MASON LINK [id number] 17:03:09 Test Item Value Reference Range Interpretation Comments MAGNESIUM (BEAKER) (test code = 1.3 mg/dL 1.6-2.6 L 627) Benefits Coordinator ID - ADMINBASIC METABOLIC [id number] 17:03:08 Test Item Value Reference Range Interpretation [...] S NOT APPLICABLE FOR DIALYSIS PATIEN TS. Benefits Coordinator ID - ADMINVenous doppler leg, [id number] 16:49:56Ejection FractionSLEH ECHO HEARTLAB MKCKESSON [facility] HospitalBL[facility]OD [id number] 12:01:39 Test Item Value Reference Range Interpretation Comments CULTURE (BEAKER) (test No growth in 5 days code = 1095) POCT-GLUCOSE [id number] 11:07:13 Test Item Value Reference Range Interpretation Comments POC-GLUCOSE METER 173 mg/dL 70-110 H : TESTED A T [facility] 6720 (BEAKER) (test code = [place], 1538) 31207: Benefits Coordinator/Techni dakota ID = [id number] for MASON LINK [id number] 08:10:09 Test Item Value Reference Range Interpretation Comments MAGNESIUM (BEAKER) (test code = 1.3 mg/dL 1.6-2.6 L 627) Benefits Coordinator ID - DBCOMPREHENSIVE METABOLIC [id number] 08:10:08 Test Item Value Reference Range Interpretation [...] S NOT APPLICABLE FOR DIALYSIS PATIEN TS. Benefits Coordinator ID - DBCBC W/PLT COUNT & AUTO [id number] 07:40:05 Test Item Value Reference Range Interpretation [...] H PERCENT (BEAKER) (test code = 2801) [id number] 06:53:41 Test Item Value Reference Range Interpretation Comments FERRITIN (BEAKER) (test code = 1099.45 ng/mL 5.00-275.00 H 361) Benefits Coordinator ID - SHREE WPOCT-GLUCOSE [id number] 21:23:35 Test Item Value Reference Range Interpretation Comments POC-GLUCOSE METER 196 mg/dL 70-110 H : TESTED A T [facility] 6720 (BEAKER) (test code = DONNA [place] [facility], 1538) 20431: Benefits Coordinator/Techni dakota ID = [id number] for Cherry Morrissey POCT-GLUCOSE [id number] 18:12:17 Test Item Value Reference Range Interpretation Comments POC-GLUCOSE METER 240 mg/dL 70-110 H : TESTED A T [facility] 6720 (BEAKER) (test code [facility], = 1538) 20552: Benefits Coordinator/Techni dakota ID = [id number] for SD GALLO [id number] 16:01:42 Test Item Value Reference Range Interpretation Comments FERRITIN (BEAKER) (test code = 1526.03 ng/mL 5.00-275.00 H 361) Benefits Coordinator ID - DBHEPATIC FUNCTION [id number] 14:17:51 Test Item Value Reference Range Interpretation [...] (test code = 45 U/L 6-55 347) Benefits Coordinator ID - BSPOCT-GLUCOSE [id number] 12:52:27 Test Item Value Reference Range Interpretation Comments POC-GLUCOSE METER 165 mg/dL 70-110 H : TESTED A T [facility] 6720 (BEAKER) (test code [facility], = 1538) 99470: Benefits Coordinator/Techni dakota ID = [id number] for SD GALLO BASIC METABOLIC [id number] 12:24:38 Test Item Value Reference Range Interpretation [...] S NOT APPLICABLE FOR DIALYSIS PATIEN TS. Benefits Coordinator ID - BSOperator ID - [id number] 12:24:33 Test Item Value Reference Range Interpretation Comments MAGNESIUM (BEAKER) (test code = 1.3 mg/dL 1.6-2.6 L 627) Benefits Coordinator ID - BSOperator ID - BSPOCT-GLUCOSE [id number] 08:43:31 Test Item Value Reference Range Interpretation Comments POC-GLUCOSE METER 83 mg/dL 70-110 : TESTED A T [facility] 6720 (BEAKER) (test code = [facility], 1538) 05228: Benefits Coordinator/Techni dakota ID = [id number] for DOMENICO STRICKLAND SD POCT-GLUCOSE [id number] 22:05:41 Test Item Value Reference Range Interpretation Comments POC-GLUCOSE METER 190 mg/dL 70-110 H : TESTED A T [facility] 6720 (BEAKER) (test code = [facility], 1538) 57322: Benefits Coordinator/Techni dakota ID = [id number] for SA RICH, ABE POCT-GLUCOSE [id number] 16:33:29 Test Item Value Reference Range Interpretation Comments POC-GLUCOSE METER 221 mg/dL 70-110 H : TESTED A T [facility] 6720 ([facility]) (test code = [facility], 1538) 72620: Benefits Coordinator/Techni dakota ID = [id number] for Co [place], Susanna POCT-GLUCOSE [id number] 12:08:57 Test Item Value Reference Range Interpretation Comments POC-GLUCOSE METER 127 mg/dL 70-110 H : TESTED A T [facility] 6720 ([facility]) (test code = [facility], 1538) 51410: Benefits Coordinator/Techni dakota ID = [id number] for [place], Susanna POCT-GLUCOSE [id number] 09:48:13 Test Item Value Reference Range Interpretation Comments POC-GLUCOSE METER 99 mg/dL 70-110 : TESTED A T [facility] 6720 ([facility]) (test code = [facility], 1538) 14340: Benefits Coordinator/Techni dakota ID = [id number] for LALY LUCAS HEMOGLOBIN [id number] 09:05:11 Test Item Value Reference Range Interpretation Comments HEMOGLOBIN A1C 6.1 % See_Comment H [Automated m essage] ELECTROPHORESIS ([facility]) The system which (test code = 3811) generated this result transmitted ref erence range: <=5.6%. The reference range was not used to int erpret this result as normal/abnormal . "The A1c is measured using a NGSP-certified method. HbA1c value equal to or greater than 6.5% as thediagnosis cutoff for diabetes. An HbA1c value of 5.7- 6.4% indicates increased risk for diabetes (prediabetes)."Benefits Coordinator ID - ADM COMPREHENSIVE METABOLIC [id number] 06:09:47 Test Item Value Reference Range Interpretation Comments TOTAL PROTEIN 5.0 gm/dL 6.0-8.3 L ([facility]) (test code = 770) ALBUMIN ([facility]) 2.1 g/dL 3.5-5.0 L (test code = 1145) ALKALINE PHOSPHATASE 92 U/L 40-150 ([facility]) (test code = 346) BILIRUBIN TOTAL 0.4 [...] S NOT APPLICABLE FOR DIALYSIS PATIEN TS. Benefits Coordinator ID - [id number] 05:58:32 Test Item Value Reference Range Interpretation Comments MAGNESIUM (BEAKER) (test code = 1.3 mg/dL 1.6-2.6 L 627) Benefits Coordinator ID - [id number] 05:58:32 Test Item Value Reference Range Interpretation Comments PHOSPHORUS (BEAKER) (test code = 2.8 mg/dL 2.3-4.7 604) Benefits Coordinator ID - BSCBC W/PLT COUNT & AUTO [id number] 05:24:08 Test Item Value Reference Range Interpretation [...] PERCENT (BEAKER) (test code = 2801) POCT-GLUCOSE [id number] 21:20:25 Test Item Value Reference Range Interpretation Comments POC-GLUCOSE METER 186 mg/dL 70-110 H : TESTED A Angela [facility] 6720 (BEAKER) (test code = [place], 1538) 0[address]: Benefits Coordinator/Techni dakota ID = [id number] for JUAN JOSÉ GIRON [id number] 18:54:47 Test Item Value Reference Range Interpretation Comments FERRITIN (BEAKER) (test code = 1911.44 ng/mL 5.00-275.00 H 361) Benefits Coordinator ID - BSCOMPREHENSIVE METABOLIC [id number] 18:12:55 Test Item Value Reference Range Interpretation [...] S NOT APPLICABLE FOR DIALYSIS PATIEN TS. Benefits Coordinator ID - [id number] 18:12:55 Test Item Value Reference Range Interpretation Comments MAGNESIUM (BEAKER) (test code = 1.4 mg/dL 1.6-2.6 L 627) Benefits Coordinator ID - [id number] 18:12:55 Test Item Value Reference Range Interpretation Comments PHOSPHORUS (BEAKER) (test code = 3.0 mg/dL 2.3-4.7 604) Benefits Coordinator ID - BSCOMPLEMENT COMPONENT [id number] 18:09:15 Test Item Value Reference Range Interpretation Comments C4 COMPLEMENT (BEAKER) (test code = 4 mg/dL 15-57 L 394) Benefits Coordinator ID - BSCOMPLEMENT COMPONENT [id number] 18:09:15 Test Item Value Reference Range Interpretation Comments C3 COMPLEMENT (BEAKER) (test code = 31 mg/dL 82-193 L 393) Benefits Coordinator ID - BSCBC W/PLT COUNT & AUTO [id number] 17:46:55 Test Item Value Reference Range Interpretation [...] PERCENT (BEAKER) (test code = 2801) POCT-GLUCOSE [id number] 17:32:52 Test Item Value Reference Range Interpretation Comments POC-GLUCOSE METER 216 mg/dL 70-110 H : TESTED A T [facility] 6720 (BEAKER) (test code = [place] [facility], 1538) 75953: Benefits Coordinator/Techni dakota ID = [id number] for Kevin Smith RAD, SHOULDER, COMPLETE (MIN 2 VIEWS), [id number] 14:45:00Reason for exam:- >halfway steroid use, eval AVN [facility] : 2000 Sex: MFINAL REPORT CLINICAL HISTORY: halfway steroid use, 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 There is no fracture or dislocation. Signed: Darcie Williamson Verified Date/Time: 09/12/2021 14:45:48 Reading Location: [facility] Reading Room RAD, SHOULDER, COMPLETE (MIN 2 VIEWS), [id number] 14:45:00Reason for exam:->halfway steroid use, eval [facility]: OKARCHE ALBRIGHT : 2000 Sex: MFINAL REPORT CLINICAL HISTORY: halfway steroid use, 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 There is no fracture or dislocation. Signed: Darcie Williamson Verified Date/Time: 09/12/2021 14:45:48 Reading Location: [facility] Radiology Reading Room RAD, HIPS, 2 VIEWS, [id number] 14:29:00Reason for exam:->halfway steroid use, eval AVN [facility] OKARCHE ALBRIGHT : 2000 Sex: MFINAL REPORT CLINICAL HISTORY: halfway steroid use, eval AVN TECHNIQUE: 2 views of the bilateral hips COMPARISON: None IMPRESSION: There is bilateral hip joint space narrowing. Subtle sclerosis and flattening of the left femoral head is suspected, possibly representing avascular necrosis given the clinical history. The right femoral head contour appears preserved. Signed: Darcie Williamson MDReport Verified Date/Time: 09/12/2021 14:29:16 Reading Location: [facility] Radiology Reading Room POCT-GLUCOSE [id number] 11:50:18 Test Item Value Reference Range Interpretation Comments POC-GLUCOSE METER 129 mg/dL 70-110 H : TESTED A T [facility] 6720 (GENEVA) (test code = DONNA [place] [facility], 1538) 85376: Benefits Coordinator/Techni dakota ID = [id number] for Kevin Smith, HAND, 3 VIEWS, [id number] 11:47:00Reason for exam:->rheumatoid arthritis[facility] : 2000 [...] third digit. There is periarticular osteopenia. No discreteerosions are seen. Signed: Darcie Williamson Verified Date/Time: 09/12/2021 11:47:37 Reading Location: [facility] Radiology Reading Room Electronically signed by: DARCIE WILLIAMSON M.D. on 11:47 AMRAD, HAND, 3 VIEWS, [id number] 11:47:00Reason for exam:- >rheumatoid arthritis [facility] : 2000 Sex: MFINAL REPORT [...] third digit. There is periarticular osteopenia. No discreteerosions are seen. Signed: Darcie Williamson Verified Date/Time: 09/12/2021 11:47:37 Reading Location: [facility] Radiology Reading Room Electronically signed by: DARCIE WILLIASMON M.D. on 11:47 AMPOCT-GLUCOSE [id number] 10:21:03 Test Item Value Reference Range Interpretation Comments POC-GLUCOSE METER 88 mg/dL 70-110 : TESTED A T [facility] 6720 (BEAKER) (test code = [facility], 1538) 72928: Benefits Coordinator/Techni dakota ID = [id number] for Destiny ie, Kevin PROTEIN, RANDOM [id number] 06:25:49 Test Item Value Reference Range Interpretation Comments PROTEIN, URINE (BEAKER) (test code 177 mg/dL 0-14 H = 1569) Benefits Coordinator ID - DBCREATININE, RANDOM [id number] 06:25:48 Test Item Value Reference Range Interpretation Comments CREATININE URINE (BEAKER) (test 106.5 mg/dL code = 375) Reference Range: No NormalsOperator ID - DBPOCT-GLUCOSE [id number] 22:19:10 Test Item Value Reference Range Interpretation Comments POC-GLUCOSE METER 219 mg/dL 70-110 H : TESTED A T [facility] 6720 (BEAKER) (test code = [facility], 1538) 29370: Benefits Coordinator/Techni dakota ID = [id number] for Cherry Morrissey POCT-GLUCOSE [id number] 20:21:14 Test Item Value Reference Range Interpretation Comments POC-GLUCOSE METER 257 mg/dL 70-110 H : TESTED A T [facility] 6720 (BEAKER) (test code = [facility], 1538) 97007: Benefits Coordinator/Techni dakota ID = [id number] for Deborah Martel CT, [id number] 16:58:00Unlisted Reason for Exam - Click Yes and Enter Reason Below->Noeval prior pancreatitis for further necrosis or abscess, worsening leukocytosis and tachycardiaIs this for enterography?->NoWill this procedure require oral contrast?->No [facility] : 2000 Sex: MFINAL REPORT CT, ABDOMEN \\T\\ PELVIS, WITH IV CONTRAST HISTORY: Abdominal infection suspected COMPARISON: 09/04/2021 TECHNIQUE: CT of the abdomen and pelvis WITH intravenous contrast. The examination was performed according to the departmental dose-optimization program, which includes automated exposure control, adjustment of the mA and/or kV according to patient size and/or use of iterative reconstruction technique. FINDINGS: Lower thorax: Hyperattenuation in the dependent portion of the right lower lobe, unchanged, with partial bilateral lower lobe atelectasis and small to moderate bilateral pleural effusions which have slightly increased in size.Liver: Severe and diffuse hepatic stea tosis.Gallbladder and bile ducts: Gallbladder sludge and otherwise unremarkable.Spleen: Moderately enlarged with punctate calcifications likely related to old granulomatous disease.Pancreas: Pancreaticedema.Adrenals: UnremarkableKidneys and ureters: Unremarkable.Bowel: The appendix is not visualized.No evidence for bowel obstruction. Loops of small bowel in the left half of the abdomen and some portions of the colon [...] increased from prior exam, without any loculated fluidcollections 2.Loops of large and small bowel which appears thick-walled, could be infectious/inflammatory, reactive from pancreatitis or related to third spacing of fluid. 3.Partial bilateral lower lobe atelectasis, superimposed pneumonia not excluded. 4.Pancreatic edema has increased from prior exam.5.Other unchanged findings as above including severe hepatic steatosis Signed: Manish Novak Verified Date/Time: 09/11/2021 16:58:30 -GLUCOSE [id number] 11:46:33 Test Item Value Reference Range Interpretation Comments POC-GLUCOSE METER 277 mg/dL 70-110 H : TESTED A T [facility] 6720 (BEAKER) (test code = [place], 1538) 05331: Benefits Coordinator/Techni dakota ID = [id number] for JO MILLER COMPREHENSIVE METABOLIC [id number] 10:25:23 Test Item Value Reference Range Interpretation [...] S NOT APPLICABLE FOR DIALYSIS PATIEN TS. Benefits Coordinator ID - [id number] 10:13:10 Test Item Value Reference Range Interpretation Comments MAGNESIUM (BEAKER) (test code = 1.9 mg/dL 1.6-2.6 627) Benefits Coordinator ID - [id number] 10:13:10 Test Item Value Reference Range Interpretation Comments PHOSPHORUS (BEAKER) (test code = 2.5 mg/dL 2.3-4.7 604) Benefits Coordinator ID - DBCBC W/PLT COUNT & AUTO [id number] 10:02:45 Test Item Value Reference Range Interpretation [...] PERCENT (BEAKER) (test code = 2801) POCT-GLUCOSE [id number] 07:31:40 Test Item Value Reference Range Interpretation Comments POC-GLUCOSE METER 310 mg/dL 70-110 H : TESTED A T [facility] 6720 (BEAKER) (test code = [facility] Ishaan [facility], 1538) 86606: Benefits Coordinator/Techni dakota ID = [id number] for EMMANUELWENDI KIM JO BLOOD [id number] 03:00:54 Test Item Value Reference Range Interpretation Comments CULTURE (BEAKER) (test No growth in 5 days code = 1095) BLOOD [id number] 03:00:53 Test Item Value Reference Range Interpretation Comments CULTURE (BEAKER) (test No growth in 5 days code = 1095) POCT-GLUCOSE [id number] 21:11:52 Test Item Value Reference Range Interpretation Comments POC-GLUCOSE METER 286 mg/dL 70-110 H : TESTED A T [facility] 6720 (BEAKER) (test code [facility], = 1538) 30152: Benefits Coordinator/Techni dakota ID = [id number] for LUCERO BERNY ALVAREZ [id number] 12:52:50 Test Item Value Reference Range Interpretation Comments PROCALCITONIN (BEAKER) (test code 5.84 ng/mL <0.05 H = 3036) SEPSIS RISK (ng/mL)Low: 0.05-0.50Intermediate: 0.51-2.00High: >=2.01APTT 2021-09-10 12:05:26 Test Item Value Reference Range Interpretation Comments PARTIAL THROMBOPLASTIN TIME 27.5 seconds 22.5-36.0 (BEAKER) (test code = 760) PROTHROMBIN TIME/[id number] 12:04:41 Test Item Value Reference Range Interpretation Comments PROTIME ([place]) 16.4 seconds 11.9-14.2 H (test code = 759) INR ([place]) (test 1.34 See_Comment [Automat ed message] code = 370) The system [employer] generated this result transmitted ref erence range: <=5.90. The reference range was not used to int erpret this result as normal/abnormal . RECOMMENDED COUMADIN/WARFARIN INR THERAPY RANGESSTANDARD DOSE: 2.0 - 3.0 Includes: PROPHYLAXIS for venous thrombosis, systemic embolization; TREATMENT for venous thrombosis and/or pulmonary embolus.HIGH RISK: Target INR is 2.5-3.5 for patients with mechanical heart valves.LACTIC ACID, [id number] 11:42:21 Test Item Value Reference Range Interpretation Comments LACTATE BLOOD VENOUS 1.13 mmol/L 0.50-2.20 Specime n slightly (2) ([place]) (test hemolyzed code = 2872) Benefits Coordinator ID - DBRAD, CHEST, 1 VIEW, NON [id number] 09:41:00Reason for exam:- >eval for pnaShould this be performed at the bedside?->Yes [facility] : 2000 Sex: MFINAL REPORT Chest, one view HISTORY: Evaluate for pneumonia Comparison: 09/07/2021 Findings: Lungs: Mild bilateral interstitial opacities, likely pulmonary venous congestion. Stable bibasilar airspace disease. Heart: Normal in size. Pleura: Moderate right and small left pleural effusions, similar to previous examination. No pneumothorax is apparent. Bones: Unremarkable. Lines/tubes: Previous feeding tube has been removed. Signed: Leena, Taz MDReport Verified Date/Time: 09/10/2021 09:41:13 Reading Location: [address] Consult Reading Room (CELLAVISION MANUAL DIFF)2021-09-10 07:30:15 Test [...] CONCENTRATION Adequate (CELLAVISION)(BEAKER) (test code = 3438) Benefits Coordinator ID - [id number] ID - Rebecca Elizondo comments: Slide comments: CBC W/PLT COUNT & AUTO [id number] 07:30:14 Test Item Value Reference Range Interpretation [...] (BEAKER) (test code = 413) COMPREHENSIVE METABOLIC [id number] 05:40:15 Test Item Value Reference Range Interpretation [...] S NOT APPLICABLE FOR DIALYSIS PATIEN TS. Benefits Coordinator ID - MARIBEL [id number] 05:38:41 Test Item Value Reference Range Interpretation Comments MAGNESIUM (BEAKER) (test code = 1.5 mg/dL 1.6-2.6 L 627) Benefits Coordinator ID - MARIBEL [id number] 05:38:41 Test Item Value Reference Range Interpretation Comments PHOSPHORUS (BEAKER) (test code = 1.7 mg/dL 2.3-4.7 L 604) Benefits Coordinator ID - MARIBEL LPOCT-GLUCOSE [id number] 21:08:40 Test Item Value Reference Range Interpretation Comments POC-GLUCOSE METER 113 mg/dL 70-110 H : TESTED A T [facility] 6720 (BEAKER) (test code = [facility], 1538) 80999: Benefits Coordinator/Techni dakota ID = [id number] for JoannAaliyah DINESH BOLANOSI POCT-GLUCOSE [id number] 16:29:13 Test Item Value Reference Range Interpretation Comments POC-GLUCOSE METER 123 mg/dL 70-110 H : TESTED A T [facility] 6720 (BEAKER) (test code = [facility], 1538) 14926: Benefits Coordinator/Techni dakota ID = [id number] for JO MILLER COMPREHENSIVE METABOLIC [id number] 15:30:31 Test Item Value Reference Range Interpretation [...] S NOT APPLICABLE FOR DIALYSIS PATIEN TS. Benefits Coordinator ID - ALVINA M2D Echo W/O Doppler(No Doppler)2021-09-09 14:32:05 Test Item Value Reference Range Interpretation Comments Ejection Fraction Est EF is 55-60% (test code = 2574) Radiology Study observation (narrative) (test code = 05829-0) PXN (test code = Sarah Travis PXN) MD - 09/09/2021 Transthoracic Echocardiography Report (TTE) Demographics Patient Name YAMILE, Date of Study 09/09/2021 VANGIE Gender Male Visit Number [id number] Race Unknown Room Number C622 Number Date of 2000 Referring Babita Cano Physician Age 21 year(s) Obstetrics Gyn Physician Sandy Wilde, [facility] Interpreting Sarah Travis MD Physician Procedure Type of Study TTE procedure:ECHO2D MODE W/O DOPPLER (Routine) Indications:Dyspnea/SOB.C linical HistoryHGB 7.7HCT 24.3 %Bipolar, SLE, HTN, RAHx: CVA- IE MSSA Septic EmboliHeight: 68 inches Weight: 88.9 kg (196 lbs) BSA: 2.03 m^2 BMI: 29.8 kg/m^2HR: 92 bpm BP: 145/104 mmHg Summary 1. Normal LV size and function. All segments contract normally. LVEF is normal >60%. 2. The right ventricular chamber size and systolic function are within normal limits. 3. Normal diastolic function. LA size is normal (16-34 ml/m2) . 4. Unable to estimate peak systolic PA pressure. The estimated RA pressure by IVC dynamics 0-5mmHg . Signature Findings Rhythm/BP Regular sinus rhythm during the exam. Left Ventricle Normal left ventricular chamber size. Normal wall thickness. Normal overall left ventricular systolic function. No apparent segmental wall motion abnormalities. Estimated LVEF is 55-60%. Estimated LVEF by qualitative assessment is normal (>60%) . Normal diastolic function. Left Atrium LA size is normal (16-34 ml/m2) . Right Ventricle The right ventricular chamber size and systolic function are within normal limits. Right Atrium RA size is normal. Aortic Valve Normal AoV structure and function. Mitral Valve Normal MV structure. Mild mitral regurgitation. Tricuspid Valve TV structure is normal. No evidence of tricuspid regurgitation. Unable to estimate peak systolic PA pressure; inadequate TR velocity signal. Pulmonic Valve Normal PV structure and function by limited views and Doppler. Aorta Aortic root size (SInus of Valsalva diameter) is normal . Proximal ascending aorta size is normal . Pericardium Tivial pericardial effusion is visualized. IVC/SVC/PA/PV/Pleural The estimated RA pressure by IVC dynamics 0-5mmHg . Chambers/Structures Left Atrium LA Volume: 65 ml LA Vol. Index: 32 ml/m^2 Left Ventricle LVIDd: 5.68 cm LVEDV:158.45 ml LV Septum Diastolic: 0.94 cm LV Septum Systolic: 1.14 cm LV PW Diastolic: 0.82 cm LV PW Systolic: 1.19 cm LVOT Diameter: 2.12 cm Aorta Ascending Aorta: 2.7 cm Doppler/Quantitative Measurements Mitral Valve MV Peak E-Wave: 1.03 m/s MV Peak A-Wave: 0.89 m/s E/A Ratio: 1.16 Peak Gradient: 4.22 mmHg Deceleration Time: 184.6 msec MV Supa. Peak: Aortic Valve Peak Velocity: 1.08 m/s Mean Velocity: 0.72 m/s Peak Gradient: 4.67 mmHg Mean Gradient: 2.37 mmHg AV Area (continuity): 3.64 cm^2 AV VTI: 20.33 cm AV DVI: 1.03 LVOT Peak Velocity: 1.09 m/s Peak Gradient: 4.78 mmHg Mean Velocity: 0.66 m/s Mean Gradient: 2.16 mmHg LVOT Diameter: 2.12 cm LVOT VTI: 20.97 cm LVOT Area: 3.53 cm^2 LVOT SV:73.98 ml LVOT CO: 6.81 l/min LVOT CI: 3.35 l/min/m^2 [facility] [id number] 11:38:39 Test Item Value Reference Range Interpretation Comments POC-GLUCOSE METER 137 mg/dL 70-110 H : TESTED A T [facility] 6720 (BEAKER) (test code = [facility], 1538) 99937: Benefits Coordinator/Techni dakota ID = [id number] for JO MILLER POCT-GLUCOSE [id number] 06:55:56 Test Item Value Reference Range Interpretation Comments POC-GLUCOSE METER 151 mg/dL 70-110 H : TESTED A T [facility] 6720 (BEAKER) (test code = [facility], 1538) 29631: Benefits Coordinator/Techni dakota ID = [id number] for CODY MORENO, VALSA POCT-GLUCOSE [id number] 21:19:46 Test Item Value Reference Range Interpretation Comments POC-GLUCOSE METER 174 mg/dL 70-110 H : TESTED A T [facility] 6720 (BEAKER) (test code = [facility], 1538) 10823: Benefits Coordinator/Techni dakota ID = [id number] for MA TIFFANIE, VALSA POCT-GLUCOSE [id number] 19:52:47 Test Item Value Reference Range Interpretation Comments POC-GLUCOSE METER 173 mg/dL 70-110 H : TESTED A T [facility] 6720 (BEAKER) (test code = [facility], 1538) 89483: Benefits Coordinator/Techni dakota ID = [id number] for AL ONSO MILES, JENNIFER MRSA [id number] 15:07:47 Test Item Value Reference Range Interpretation Comments Result (test code = 6463-4) No MRSA isolated [facility] [id number] 15:07:47 Test Item Value Reference Range Interpretation Comments CULTURE (BEAKER) (test code No MRSA isolated = 1095) POCT-GLUCOSE [id number] 11:36:26 Test Item Value Reference Range Interpretation Comments POC-GLUCOSE METER 268 mg/dL 70-110 H : TESTED A T [facility] 6720 (BEAKER) (test code = [facility], 1538) 67560: Benefits Coordinator/Techni dakota ID = [id number] for AL ONSO MILES, JENNIFER POCT-GLUCOSE [id number] 09:21:21 Test Item Value Reference Range Interpretation Comments POC-GLUCOSE METER 283 mg/dL 70-110 H : TESTED A T [facility] 6720 (BEAKER) (test code = [place], 1538) 88833: Benefits Coordinator/Techni dakota ID = [id number] for JENNIFER ARCINIEGA ANTI-MITOCHONDRIAL AB, REFLEX TO [id number] 07:58:16 Test Item Value Reference Range Interpretation Comments SCAN RESULT (test code = 4671237) POCT-GLUCOSE [id number] 05:15:53 Test Item Value Reference Range Interpretation Comments POC-GLUCOSE METER 266 mg/dL 70-110 H : TESTED A T [facility] 6720 (BEAKER) (test code = [place], 1538) 35042: Benefits Coordinator/Techni dakota ID = [id number] for KAVITHA ESCOBAR COMPREHENSIVE METABOLIC [id number] 04:59:08 Test Item Value Reference Range Interpretation [...] S NOT APPLICABLE FOR DIALYSIS PATIEN TS. Benefits Coordinator ID - ALVINA [id number] 04:55:48 Test Item Value Reference Range Interpretation Comments MAGNESIUM (BEAKER) (test code = 1.7 mg/dL 1.6-2.6 627) Benefits Coordinator ID - ALVINA [id number] 04:55:48 Test Item Value Reference Range Interpretation Comments PHOSPHORUS (BEAKER) (test code = 1.6 mg/dL 2.3-4.7 L 604) Benefits Coordinator ID - ALVINA MCBC W/PLT COUNT & AUTO [id number] 04:52:53 Test Item Value Reference Range Interpretation [...] PERCENT (BEAKER) (test code = 2801) POCT-GLUCOSE [id number] 23:21:41 Test Item Value Reference Range Interpretation Comments POC-GLUCOSE METER 268 mg/dL 70-110 H : TESTED A T [facility] 6720 (BEAKER) (test code = [facility], 1538) 81254: Benefits Coordinator/Techni dakota ID = [id number] for KAVITHA ESCOBAR POCT-GLUCOSE [id number] 18:55:01 Test Item Value Reference Range Interpretation Comments POC-GLUCOSE METER 240 mg/dL 70-110 H : TESTED A T [facility] 6720 (BEAKER) (test code = [facility], 1538) 61232: Benefits Coordinator/Techni dakota ID = [id number] for Isiah Porter PERIPHERAL BLOOD SMEAR - PATHOLOGIST [id number] 16:19:01 Test Item Value Reference Range Interpretation Comments RBC MORPHOLOGY See comment Microcytic, (BEAKER) (test hypochromic a nemia code = 2836) with moderate anisocytosis an d mild poikilocytosis, including occasional elliptocytes an d rare dacrocytes . Only rare schistocytes present. Increa sed polychromasia. WBC MORPHOLOGY See comment Increased. (BEAKER) (test Predominately code = 0510) comprised by granulocytes wi th mild left shift . No overt blasts identified. Lymphocytes wit h reactive forms present. PLT MORPHOLOGY No Clumping (BEAKER) (test code = 2848) PLT MORPHOLOGY No Satellitosis (BEAKER) (test code = 180090) PLT MORPHOLOGY See comment Decreased in number (BEAKER) (test with normal code = 806555) morphology. R are to Occasional larg e forms. [facility]-PATHOLOGIST- Yvan Campoverde MD 6112 (BEAKER) (electronic (test code = signature) 2846) Urinalysis w/Microscopic + Reflex to [id number] 14:42:51 Test Item Value Reference Range Interpretation Comments Color, UA (test code Yellow = 5778-6) Clarity, UA (test Clear code = 5767-9) Specific [place], UA 1.025 1.001-1.035 (test code = 5811-5) pH, UA (test code = 6.0 5.0-8.0 5803-2) Protein, UA (test 100 mg/dL Negative A code = 81614-0) Glucose, UA (test 70 mg/dL Negative A code = 365) Ketones, UA (test 40 mg/dL Negative A code = 2514-8) Bilirubin, UA (test Negative Negative code = 47555-4) Blood, UA (test code Large Negative A = 29288-0) Nitrite, UA (test Negative Negative code = 5802-4) Leukocytes, UA (test Negative Negative code = 5799-2) Urobilinogen, UA 0.2 mg/dL 0.2-1.0 (test code = 85469-1) RBC, UA (test code = 30 See_Comment [Autom ated 55015-4) message] The system which generated this result transmit henrandez reference range : /HPF. The reference range was not used to interpret this result as normal/abnormal . WBC, UA (test code = 7 See_Comment [Autom ated 5821-4) message] The system which generated this result transmit hernandez reference range : /HPF. The reference range was not used to interpret this result as normal/abnormal . Bacteria, UA (test None Seen code = 95522-7) Mucus (test code = Few 8247-9) Hyaline Casts, UA 1 See_Comment [Automate d (test code = 61948-8) messag e] The system which generated this result transmit hernandez reference range : /LPF. The reference range was not used to interpret this result as normal/abnormal . Casts (test code = 3 See_Comment [Automat ed 2942-6) message] The system which generated this result transmit hernandez reference range : /LPF. The reference range was not used to interpret this result as normal/abnormal . Crystals, Urine (test None Seen code = 65703-2) Specimen Source (test code = 2795) IDALIA (test code = IDALIA) Benefits Coordinator ID - [auto]Benefits Coordinator ID - tech Lab Interpretation Abnormal (test code = 48545-4) [facility] [id number] 14:42:51 Test Item Value Reference Range Interpretation [...] = 1521) SOURCE(BEAKER) (test code = 2795) Benefits Coordinator ID - [auto]Benefits Coordinator ID - [id number] 13:45:54 Test Item Value Reference Range Interpretation Comments PROCALCITONIN (BEAKER) (test code 41.89 ng/mL <0.05 HH = 3036) SEPSIS RISK (ng/mL)Low: 0.05-0.50Intermediate: 0.51-2.00High: >=2.01 [id number] 13:10:47 Test Item Value Reference Range Interpretation Comments HAPTOGLOBIN (BEAKER) (test code = 367 mg/dL 14-258 H 366) Benefits Coordinator ID - BSOperator ID - BSCOMPREHENSIVE METABOLIC [id number] 12:56:57 Test Item Value Reference Range Interpretation [...] S NOT APPLICABLE FOR DIALYSIS PATIEN TS. Benefits Coordinator ID - BSHEPATIC FUNCTION [id number] 12:56:40 Test Item Value Reference Range Interpretation [...] Specimen slightly (test code = 347) hemolyzed Benefits Coordinator ID - [id number] 12:56:40 Test Item Value Reference Range Interpretation Comments LIPASE (BEAKER) (test code = 749) 132 U/L 8-78 H Benefits Coordinator ID - [id number] 12:56:39 Test Item Value Reference Range Interpretation Comments MAGNESIUM (BEAKER) 1.9 mg/dL 1.6-2.6 Specimen slightly (test code = 627) hemolyzed Benefits Coordinator ID - [id number] 12:56:39 Test Item Value Reference Range Interpretation Comments PHOSPHORUS (BEAKER) 2.9 mg/dL 2.3-4.7 Specimen slightly (test code = 604) hemolyzed Benefits Coordinator ID - BSVANCOMYCIN LEVEL, [id number] 12:51:35 Test Item Value Reference Range Interpretation Comments VANCOMYCIN TROUGH (BEAKER) (test 14.4 ug/mL 10.0-20.0 code = 522) Benefits Coordinator ID - [id number] 12:43:54 Test Item Value Reference Range Interpretation Comments FIBRINOGEN LEVEL (BEAKER) (test 715 mg/dl 225-434 H code = 658) HEMOGLOBIN AND [id number] 12:34:38 Test Item Value Reference Range Interpretation Comments HEMOGLOBIN (BEAKER) (test code = 8.0 GM/DL 13.7-17.5 L 410) HEMATOCRIT (BEAKER) (test code = 26.2 % 40.1-51.0 L 411) Benefits Coordinator ID - [id number]-GLUCOSE [id number] 12:12:10 Test Item Value Reference Range Interpretation Comments POC-GLUCOSE METER 152 mg/dL 70-110 H : TESTED A T [facility] 6720 (BEAKER) (test code = DONNA WH[place], 1538) [address]: Benefits Coordinator/Techni dakota ID = [id number] for Patrick Perez ANTI-DNA [id number] 11:19:56 Test Item Value Reference Range Interpretation Comments ANTI-DNA TITER (BEAKER) (test code = :80 1553) DOUBLE-STRANDED DNA (DSDNA) [id number] 11:19:49 Test Item Value Reference Range Interpretation Comments ANTI-DNA DS (BEAKER) (test code = Positive Negative 1055) ANTI-DNA [id number] 11:19:10 Test Item Value Reference Range Interpretation Comments ANTI-DNA TITER (BEAKER) (test code = :80 1553) DOUBLE-STRANDED DNA (DSDNA) [id number] 11:19:04 Test Item Value Reference Range Interpretation Comments ANTI-DNA DS (BEAKER) (test code = Positive Negative 1055) LACTATE DEHYDROGENASE (LDH)2021-09-07 10:00:12 Test Item Value Reference Range Interpretation Comments LACTATE DEHYDROGENASE (BEAKER) (test 723 U/L 125-220 H code = 635) Benefits Coordinator ID - BSBILIRUBIN, [id number] 10:00:11 Test Item Value Reference Range Interpretation Comments BILIRUBIN DIRECT (BEAKER) (test 0.8 mg/dL 0.1-0.5 H code = 706) Benefits Coordinator ID - BSCBC W/PLT COUNT & AUTO [id number] 08:25:03 Test Item Value Reference Range Interpretation [...] CONCENTRATION Decreased (CELLAVISION)(BEAKER) (test code = 3438) Benefits Coordinator ID - [id number] ID - Kyree comments: Slide comments:B-TYPE NATRIURETIC FACTOR (BNP)2021-09-07 06:31:12 Test Item Value Reference Range Interpretation Comments B-TYPE NATRIURETIC PEPTIDE (BEAKER) 269 pg/mL 0-100 H (test code = 700) Benefits Coordinator ID - BSLACTIC ACID, [id number] 06:10:21 Test Item Value Reference Range Interpretation Comments LACTATE BLOOD VENOUS (2) (BEAKER) 0.76 mmol/L 0.50-2.20 (test code = 2872) Benefits Coordinator ID - CMCOWI-JTCQGFO6332-07-21 03:08:41 Test Item Value Reference Range Interpretation Comments POC-Glucose (test code = 153 mg/dL 70-110 H : T ESTED AT [facility] 1855) [address] [facility] [place], [address]: Benefits Coordinator/Techni dakota ID = [id number] for URCIA, FAMELA Lab Interpretation (test Abnormal code = 20125-6) [facility] CenterImzubbFQYM-[id number] 03:08:41 Test Item Value Reference Range Interpretation Comments POC-Hematocrit (test code 21 % 40-50 L : = 1857) Benefits Coordinator/Techni dakota ID = [id number] for URCIA, FAMELA Lab Interpretation (test Abnormal code = 84845-1) [facility] CenterCxvhunBNPM-[id number] 03:08:41 Test Item Value Reference Range Interpretation Comments POC-HEMATOCRIT 21 % 40-50 L : Benefits Coordinator/Te calixtonician ID = (GENEVA) (test code = 736383 for URCIA, FAMELA 1857) [id number] 03:08:41 Test Item Value Reference Range Interpretation Comments POC-GLUCOSE ([facility]) 153 mg/dL 70-110 H : TESTE D AT [facility] 6720 (test code = 1855) [facility], [address]: Benefits Coordinator/Techni dakota ID = [id number] for URCI A, FAMELA ZYG-[id number] 03:08:40 Test Item Value Reference Range Interpretation Comments POC-Potassium (test code 3.8 meq/L 3.6-5.5 : T ESTED AT [facility] = 1540) [address] [facility], [address]: Benefits Coordinator/Techni dakota ID = [id number] for URCIA, FAMELA Lab Interpretation (test Normal code = 32492-4) [facility] CenterHzaeruNLYJ-[id number] 03:08:40 Test Item Value Reference Range Interpretation Comments POC-Hemoglobin (test code 7.1 g/dL 13.0-16.8 L : TESTED AT [facility] = 1856) [address] [place] [address], [address]: Benefits Coordinator/Techni dakota ID = [id number] for URCIA, FAMELA Lab Interpretation (test Abnormal code = 61343-6) [facility] CenterPOCT-[id number] 03:08:40 Test Item Value Reference Range Interpretation Comments POC-POTASSIUM 3.8 meq/L 3.6-5.5 : TESTED AT [facility] 6720 ([facility]) (test code [facility], = 1540) [address]: Benefits Coordinator/Techni dakota ID = [id number] for URCI A, FAMELA [id number] 03:08:40 Test Item Value Reference Range Interpretation Comments POC-HEMOGLOBIN 7.1 g/dL 13.0-16.8 L : TESTED AT [facility] 6720 ([facility]) (test code = [facility], 1856) [address]: Benefits Coordinator/Techni dakota ID = [id number] for URCI A, FAMELA POC-Blood gases, [id number] 03:08:39 Test Item Value Reference Range Interpretation Comments Temp. Celsius-POC (test 97.2 code = 1834) FIO2-POC (test code = 54 1835) pH, Arterial-POC (test 7.429 7.350-7.450 code = 1836) PCO2, Arterial-POC 33.3 See_Comment L If pO2 is >180, pCO2 (test code = 1837) may be po sitively biased [Automat ed message] The sy stem which generated this result transmit hernandez reference range : 35.0 - 45.0 mm Hg. The reference r colby was not used to interpret this result as normal/abnormal . PO2, Arterial-POC (test 55.0 See_Comment L [Au tomated message] code = 1838) The system [employer] [facility] h generated this result transmit hernandez reference range : 80.0 - 90.0 mm Hg. The reference r colby was not used to interpret this result as normal/abnormal . SO2, Arterial-POC (test 91.0 % 96.0-97.0 L code = 1839) HCO3, Arterilal-POC 22.2 meq/L 21.0-29.0 (test code = 1840) BE, Arterial-POC (test -2.0 meq/L -2.0-3.0 : LIONEL HERNANDEZ AT [facility] code = 1841) [address] [facility] [place], [address]: Benefits Coordinator/Techni dakota ID = [id number] for URCIA, FAMELA Lab Interpretation Abnormal (test code = 29157-3) [facility]-[id number] 03:08:39 Test Item Value Reference Range Interpretation Comments POC-Sodium (test code = 134 meq/L 135-148 L : TE STED AT [facility] 1542) [address] [facility] [place], [address]: Benefits Coordinator/Techni dakota ID = [id number] for URCIA, FAMELA Lab Interpretation (test Abnormal code = 04148-9) [facility] CenterPOCT-BLOOD GASES, [id number] 03:08:39 Test Item Value Reference Range Interpretation Comments TEMP, CELSIUS-POC 97.2 (BEAKER) (test code = 1834) FIO2-POC (BEAKER) 54 [...] EXCESS, -2.0 meq/L -2.0-3.0 : TESTED AT [facility] 6720 ARTERIAL-POC [facility], (BEAKER) (test code 80[address]: = 1841) Benefits Coordinator/Techni dakota ID = [id number] for URCI A, FAMELA [id number] 03:08:39 Test Item Value Reference Range Interpretation Comments POC-SODIUM (BEAKER) 134 meq/L 135-148 L : TESTED AT [facility] 6720 (test code = 1542) [facility], [address]: Benefits Coordinator/Techni dakota ID = [id number] for URCI A, FAMELA RAD, CHEST, 1 VIEW, NON [id number] 03:00:00Reason for exam:- >destaurationShould this be performed at the bedside?->Yes [facility] : 2000 Sex: MFINAL REPORT RAD, CHEST, 1 VIEW, NON DEPT INDICATION: desaturation COMPARISON: Prior day's exam FINDINGS: Portable frontal view of the chest. IMPRESSION: Support Lines: Stable feeding tube. Lungs and pleura: Unchanged hypoinflated lungs with bibasilar atelectasis and small bilateral pleural effusions. No pneumothorax. Heart and mediastinum: Stable contours. Additional findings: None. Signed: Gokul Encarnacion MDReport Verified Date/Time: 09/07/2021 03:00:20 BASIC METABOLIC [id number] 01:49:40 Test Item Value Reference Range Interpretation [...] S NOT APPLICABLE FOR DIALYSIS PATIEN TS. Benefits Coordinator ID - [id number] 01:38:31 Test Item Value Reference Range Interpretation Comments PHOSPHORUS (BEAKER) (test code = 3.1 mg/dL 2.3-4.7 604) Benefits Coordinator ID - [id number] 01:38:30 Test Item Value Reference Range Interpretation Comments MAGNESIUM (BEAKER) (test code = 1.9 mg/dL 1.6-2.6 627) Benefits Coordinator ID - BSPOCT-GLUCOSE [id number] 00:10:21 Test Item Value Reference Range Interpretation Comments POC-GLUCOSE METER 128 mg/dL 70-110 H : TESTED A T [facility] (BEAKER) (test code = [facility], 1538) [address]: Benefits Coordinator/Techni dakota ID = [id number] for ABBIE PIERRE POCT-GLUCOSE [id number] 15:58:02 Test Item Value Reference Range Interpretation Comments POC-GLUCOSE METER 142 mg/dL 70-110 H : TESTED A T [facility] 6720 (BEAKER) (test code = [facility], 1538) [address]: Benefits Coordinator/Techni dakota ID = [id number] for Laura Ch POCT-GLUCOSE [id number] 13:04:07 Test Item Value Reference Range Interpretation Comments POC-GLUCOSE METER 141 mg/dL 70-110 H : [facility] (BEAKER) (test code = [facility], 1538) [address]: Benefits Coordinator/Techni dakota ID = [id number] for Laura Ch TSH/FREE T4 IF [id number] 11:33:39 Test Item Value Reference Range Interpretation Comments THYROID STIMULATING HORMONE 4.429 uIU/mL 0.350-4.940 (BEAKER) (test code = 772) Benefits Coordinator ID - PIAYASARS-COV2/RT-PCR ([facility])2021-09-06 10:50:02 Test Item Value Reference Range Interpretation Comments SARS-COV2/RT-PCR (test Negative Not Detected, Negative, code = 9496100) See external report for linked test SARS-COV-2 PERFORMING LAB [facility] (test code = 0124940) Negative result for this test determines that [...] justifying the authorization of the emergency use ofin vitro diagnostic tests for detection and/or diagnosis of COVID-19 is terminated under Section 564(b)(2) of the Act or the EUA is revoked under Section 564(g) of the Act.Fact Sheet for Healthcare Prov iders:https://www.[employer]/sites/default/files/product/documents/Fact_Sheet_HC _Plknfbkgt_Ppgm_MBLU-PgO-0.pdfFact Sheet for Healthcare Patients:https://www.[employer]/sites/default/files/product/docume nts/Frzs_Ziore_Mumbeatw_Xpyc_ZWGQ-WyX-5.pdfPerforming Laboratory:[facility], [place] [address]SLEAHCZ D, 25-HYDROXY 2021-09-06 07:57:12 Test Item Value Reference Range Interpretation Comments VITAMIN D 25-OH (GENEVA) (test 15.4 ng/mL 6.6-49.9 code = 2764) Effective 02/27/2017: Reference Range ChangeNew: 6.6-49.9 ng/mL Previous: 13.0- 47.8 ng/mLRecommendedVitamin D Target Range: 30.0-40.0 ng/mLOperator ID - BS POCT-GLUCOSE [id number] 07:40:30 Test Item Value Reference Range Interpretation Comments POC-GLUCOSE METER 157 mg/dL 70-110 H : TESTED A T [facility] 6720 (GENEVA) (test code = DONNA [place] [facility], 1538) [address]: Benefits Coordinator/Techni dakota ID = [id number] for Laura Ch COMPLEMENT COMPONENT [id number] 07:37:31 Test Item Value Reference Range Interpretation Comments C3 COMPLEMENT (BEAKER) (test code = 25 mg/dL 82-193 L 393) Benefits Coordinator ID - BSCOMPLEMENT COMPONENT [id number] 07:37:30 Test Item Value Reference Range Interpretation Comments C4 COMPLEMENT (BEAKER) (test code = 4 mg/dL 15-57 L 394) Benefits Coordinator ID - BSPROTEIN, RANDOM [id number] 07:28:02 Test Item Value Reference Range Interpretation Comments PROTEIN, URINE (BEAKER) (test code 411 mg/dL 0-14 H = 1569) Benefits Coordinator ID - BS(CELLAVISION MANUAL DIFF)2021-09-06 07:15:58 Test [...] CONCENTRATION Decreased (CELLAVISION)(BEAKER) (test code = 3438) Benefits Coordinator ID - [id number] ID - joanna Fuentes comments: Slide comments:CBC W/PLT COUNT & AUTO [id number] 07:15:57 Test Item Value Reference Range Interpretation [...] (BEAKER) (test code = 413) CREATININE, RANDOM [id number] 06:26:45 Test Item Value Reference Range Interpretation Comments CREATININE URINE (BEAKER) (test 200.4 mg/dL code = 375) Reference Range: No NormalsOperator ID - BSURINALYSIS W/ [id number] 06:06:22 Test Item Value Reference Range Interpretation [...] code = 1584) SOURCE(BEAKER) (test code = 0095) Benefits Coordinator ID - [auto]Benefits Coordinator ID - techOperator ID - techCOMPREHENSIVE METABOLIC [id number] 02:54:37 Test Item Value Reference Range Interpretation [...] S NOT APPLICABLE FOR DIALYSIS PATIEN TS. Benefits Coordinator ID - BSLACTIC ACID, [id number] 02:42:48 Test Item Value Reference Range Interpretation Comments LACTATE BLOOD VENOUS (2) (BEAKER) 1.38 mmol/L 0.50-2.20 (test code = 2872) Benefits Coordinator ID - [id number] 02:36:26 Test Item Value Reference Range Interpretation Comments MAGNESIUM (BEAKER) (test code = 1.6 mg/dL 1.6-2.6 627) Benefits Coordinator ID - [id number] 02:36:26 Test Item Value Reference Range Interpretation Comments PHOSPHORUS (BEAKER) (test code = 2.4 mg/dL 2.3-4.7 604) Benefits Coordinator ID - BSRAD, CHEST, 1 VIEW, NON [id number] 02:26:00Reason for exam:->sobCH[facility] : 2000 Sex: MFINAL REPORT RAD, CHEST, 1 VIEW, NON DEPT INDICATION: sob COMPARISON: Prior day's examFINDINGS: Portable frontal view of the chest. IMPRESSION: Support Lines: Stable. Lungs and pleura: Worsening consolidative airspace opacity in the right lung base may represent layering pleural effusion and atelectasis however infection should be excluded clinically. No left pleural effusion. No pneumothorax.Heart and mediastinum: Stable contours. Additional findings: None. Signed: Vernell Ndiaye Verified Date/Time: 09/06/2021 02:26:55 POCT-GLUCOSE [id number] 01:16:19 Test Item Value Reference Range Interpretation Comments POC-GLUCOSE METER 164 mg/dL 70-110 H : TESTED A T [facility] 6720 (BEAKER) (test code = DONNA [place] [facility], 1538) [address]: Benefits Coordinator/Techni dakota ID = [id number] for WENDY PHILLIPS BASIC METABOLIC [id number] 19:41:58 Test Item Value Reference Range Interpretation Comments SODIUM (BEAKER) 135 meq/L 136-145 L (test code = 381) POTASSIUM (BEAKER) 3.8 meq/L 3.5-5.1 (test code = 379) CHLORIDE (BEAKER) 105 meq/L 98-107 (test code = 382) CO2 (BEAKER) (test 25 meq/L - code = 355) BLOOD UREA NITROGEN 7 [...] S NOT APPLICABLE FOR DIALYSIS PATIEN TS. Benefits Coordinator ID - [id number] 19:38:29 Test Item Value Reference Range Interpretation Comments MAGNESIUM (BEAKER) (test code = 1.7 mg/dL 1.6-2.6 627) Benefits Coordinator ID - [id number] 19:38:29 Test Item Value Reference Range Interpretation Comments PHOSPHORUS (BEAKER) (test code = 2.0 mg/dL 2.3-4.7 L 604) Benefits Coordinator ID - BSPOCT-GLUCOSE [id number] 19:12:09 Test Item Value Reference Range Interpretation Comments POC-GLUCOSE METER 184 mg/dL 70-110 H : TESTED A T [facility] [address]20 (BEAKER) (test code = FREDORAVINDRA [place] [facility], 1538) [address]: Benefits Coordinator/Techni dakota ID = [id number] for CHANTE IGL [id number] 17:52:47 Test Item Value Reference Range Interpretation Comments FERRITIN (BEAKER) (test code = 4212.17 ng/mL 5.00-275.00 H 361) Benefits Coordinator ID - BSOperator ID - BSCT, [id number] 12:57:00Unlisted Reason for Exam - Click Yes and Enter Reason Below->YesUnlisted Reason for Exam->pancreatitis folllow-upIs this for enterography?->NoWill this procedure require oral contrast?->No [facility] CENTERName: VANGIE OVALLE : 2000 Sex: MFINAL [...] effusions with mild bibasilar atelectasis. HEPATOBILIARY: The liveris hypodense with sparing around the gallbladder. The liver is mildly enlarged 17.3 cm in length at the midclavicular line. No focal hepatic lesions. There is hyperdense material in the gallbladder. Nogallbladder distention. No biliary ductal dilatation.SPLEEN: 15.3 cm splenomegaly. Multiple calcified granulomas measure up to 0.4 cm. PANCREAS: No focal masses or ductal dilatation. The pancreas is prominent and diffusely mildly hypodense. There is marked fat stranding around the pancreas. ADRENALS: N o adrenal nodules.KIDNEYS/URETERS: No hydronephrosis, stones, or masses. [...] of the femoral head. Schmorl's nodes of thethoracolumbar spine. IMPRESSION: 1.The findings are consistent with acute pancreatitis without pancreatic parenchymal necrosis. Fluid extends down both paracolic gutters and into the pelvis without a loculated, drainable fluid collection. Given the confluence of the peripancreatic fat stranding, peripa ncreatic necrosis is possible. 2.Hepatosplenomegaly with diffuse fatty infiltration of the liver. 3.The hyperdense material in the gallbladder could be sludge. 4.Severe degenerative changes of the lefthip. Signed: Yash Lux MDReport Verified Date/Time: 09/05/2021 12:57:43 [facility] [place] [address] 1129 POCT-GLUCOSE [id number] 12:23:38 Test Item Value Reference Range Interpretation Comments POC-GLUCOSE METER 181 mg/dL 70-110 H : TESTED A T [facility] 6720 (BEAKER) (test code = [facility], 1538) [address]: Benefits Coordinator/Techni dakota ID = [id number] for CHANTE GIL POCT-GLUCOSE [id number] 06:55:24 Test Item Value Reference Range Interpretation Comments POC-GLUCOSE METER 197 mg/dL 70-110 H : TESTED A T [facility] 6720 (BEAKER) (test code = [facility], 1538) [address]: Benefits Coordinator/Techni dakota ID = [id number] for ON UOHA, ALLAN COMPREHENSIVE METABOLIC [id number] 06:16:59 Test Item Value Reference Range Interpretation [...] S NOT APPLICABLE FOR DIALYSIS PATIEN TS. Benefits Coordinator ID - SHREE WCALCIUM, [id number] 05:57:49 Test Item Value Reference Range Interpretation [...] WBC 0-0 (BEAKER) (test code = 413) [id number] 01:18:24 Test Item Value Reference Range Interpretation Comments PHOSPHORUS (BEAKER) (test code = 1.2 mg/dL 2.3-4.7 LL 604) Benefits Coordinator ID - BSBASIC METABOLIC [id number] 01:17:10 Test Item Value Reference Range Interpretation [...] S NOT APPLICABLE FOR DIALYSIS PATIEN TS. Benefits Coordinator ID - [id number] 01:10:55 Test Item Value Reference Range Interpretation Comments MAGNESIUM (BEAKER) (test code = 2.3 mg/dL 1.6-2.6 627) Benefits Coordinator ID - BSPOCT-GLUCOSE [id number] 00:50:48 Test Item Value Reference Range Interpretation Comments POC-GLUCOSE METER 194 mg/dL 70-110 H : TESTED A T [facility]20 (BEAKER) (test code = DONNA [place], 1538) [address]: Benefits Coordinator/Techni dakota ID = [id number] for ON UOHA, ALLAN CT, CHEST WITH IV CONTRAST- PE TEST [id number] 21:21:00Unlisted Reason for Exam - Click Yes and Enter Reason Below->No [facility] : 2000 Sex: MFINAL REPORT Comparison: MR abdomen dated 08/27/2021 Indication: 21-year-old male with acute chest pain, hypoxia, and shortness of breath clinically suspicious for acute pulmonary embolism. Technique: Postcontrast axial images of the chest were obtained from above the arch level to the lower chest at maximum enhancement of the pulmonary artery. This exam was performed according to the departmental dose optimization program which includes automated exposure control, adjustment [...] patent, without evidence for filling defect or vascularcutoff. The pulmonary arteries are normal in size. Thoracic aorta: Normal in size. No acute aortic pathology. The arch vessel branching pattern is normal, and the origins of the arch branch vessels areall widely patent. Pulmonary veins: Normal configuration. Coronary arteries: Normal configuration with no significant atherosclerotic calcifications. Systemic [...] normal atrioventricular and ventriculoarterial concordance, and systemic and pulmonary venous return. The cardiac chamber sizes are normal. Trace pericardial effusion. No thrombus identified within the cardiac chambers. Axillae/subcutaneous soft tissues: No pathologically enlarged axillary lymph nodes. No suspicious subcutaneous nodules or fluid collections. Visualized upper abdomen: Calcified granulomas inthe spleen. Hepatic steatosis. Small volume intra-abdominal ascites that are evaluated on same day CT abdomen pelvis.. Bones: No aggressive osseous lesions or acute fractures. Multilevel degenerative changes in thoracic spine. Impression: No evidence for acute or chronic pulmonary embolism with limitations as above. Small bilateral right greater than left pleural effusions with adjacent consolidativeairspace opacities likely representing passive atelectasis however superimposed infection should be excluded clinically. Hepatic steatosis. Signed: Vernell Ndiaye Verified Date/Time: 09/04/2021 21:21:16 POCT-GLUCOSE [id number] 18:23:42 Test Item Value Reference Range Interpretation Comments POC-GLUCOSE METER 248 mg/dL 70-110 H : [facility] ([facility] (test code = [facility], 153) [address]: Benefits Coordinator/Techni dakota ID = [id number] for Bree Roman [id number] 14:56:22 Test Item Value Reference Range Interpretation Comments CALCIUM (BEAKER) (test code = 697) 5.8 mg/dL 8.4-10.2 LL Benefits Coordinator ID - ADMINPOCT-GLUCOSE [id number] 13:17:18 Test Item Value Reference Range Interpretation Comments POC-GLUCOSE METER 217 mg/dL 70-110 H : TESTED A T [facility] 6720 (BEEQO) (test code = [facility], 153) [address]: Benefits Coordinator/Techni dakota ID = [id number] for Alanis escotorobLiana CBC W/PLT COUNT & AUTO [id number] 07:22:59 Test Item Value Reference Range Interpretation [...] PERCENT (BEAKER) (test code = 2801) POCT-GLUCOSE [id number] 06:16:20 Test Item Value Reference Range Interpretation Comments POC-GLUCOSE METER 261 mg/dL 70-110 H : [facility] (BEAKER) (test code = [place], 1538) [address]: Benefits Coordinator/Techni dakota ID = [id number] for KENDALL JOYA COMPREHENSIVE METABOLIC [id number] 05:49:22 Test Item Value Reference Range Interpretation [...] S NOT APPLICABLE FOR DIALYSIS PATIEN TS. Benefits Coordinator ID - [id number] 05:33:14 Test Item Value Reference Range Interpretation Comments MAGNESIUM (BEAKER) (test code = 1.8 mg/dL 1.6-2.6 627) Benefits Coordinator ID - ADMINURINALYSIS W/ REFLEX URINE [id number] 01:34:44 Test Item Value Reference Range Interpretation [...] 1585) Rare SOURCE(BEAKER) (test code = 2795) Benefits Coordinator ID - [auto]Benefits Coordinator ID - techPOCT-GLUCOSE [id number] 00:34:17 Test Item Value Reference Range Interpretation Comments POC-GLUCOSE METER 261 mg/dL 70-110 H : TESTED A T [facility] 6720 (BEAKER) (test code = [place], 1538) [address]: Benefits Coordinator/Techni dakota ID = [id number] for KENDALL JOYA [id number] 18:57:34 Test Item Value Reference Range Interpretation Comments MAGNESIUM (BEAKER) (test code = 1.3 mg/dL 1.6-2.6 L 627) Benefits Coordinator ID - ADMINPOCT-GLUCOSE [id number] 18:04:02 Test Item Value Reference Range Interpretation Comments POC-GLUCOSE METER 307 mg/dL 70-110 H : TESTED A T [facility] 6720 (BEAKER) (test code = DONNA Madird [facility], 1538) [address]: Benefits Coordinator/Techni dakota ID = [id number] for Liana Flores RAD, ABDOMEN/KUB, 1 VIEW [id number] 18:01:00Reason for exam:->Enteric tube placement verification [facility] 2000 Sex: MFINAL REPORT RAD, ABDOMEN/KUB, 1 VIEW AP CLINICAL INDICATION: Enteric tube placement verification COMPARISON: None TECHNIQUE: Single, frontal radiograph of the abdomen. FINDINGS: The bowel gas pattern is nonspecific, but nonobstructive. There are prominent loops of small bowel within themid abdomen. Colon is stool-filled. Evaluation for free air is limited by portable supine technique.Within these limitations, no free air is identified. Signed: Anne Marie Correa MDReport Verified Date/Time: 09/03/2021 18:01:34 COMPREHENSIVE METABOLIC [id number] 17:50:55 Test Item Value Reference Range Interpretation [...] S NOT APPLICABLE FOR DIALYSIS PATIEN TS. Benefits Coordinator ID - [id number] ID - [id number] ID - ADMINCBC W/PLT COUNT & AUTO [id number] 17:43:10 Test Item Value Reference Range Interpretation [...] code = 2801) RAD, ABDOMEN/KUB, 1 VIEW [id number] 17:14:00Reason for exam:->[facility] : 2000 Sex: MFINAL REPORT RAD, ABDOMEN/KUB, 1 VIEW AP CLINICAL INDICATION: confirm NGT placement COMPARISON: None TECHNIQUE: Single, frontal radiograph of the abdomen. FINDINGS:Feeding tube tip overlies the distal duodenum. The bowel gas pattern is nonspecific, but nonobstructive. Evaluation for freeair is limited by portable supine technique. Within these limitations, no free air is identified. Signed: Anne Marie Correa MDReport Verified Date/Time: 09/03/2021 17:14:35 , CHEST, 1 VIEW, NON [id number] 16:50:00Reason for exam:->ngt placementShould this be performed at the bedside?->Yes [facility] : 2000 Sex: MFINAL REPORT INDICATION: ngt placement COMPARISON: None TECHNIQUE: Single frontal viewof the chest. FINDINGS: Lungs and pleura: Trace right effusion and basilar atelectasisHeart and mediastinum: Normal heart size. Unremarkable mediastinal contours.Osseous structures: No acute abnormality .Other: Feeding tube descends below the diaphragm. Signed: Anne Marie Correa MDReport Verified Date/Time: 09/03/2021 16:50:54 [id number] 10:58:42 Test Item Value Reference Range Interpretation Comments PHOSPHORUS (BEAKER) 1.6 mg/dL 2.3-4.7 L Specimen slightly (test code = 604) hemolyzed Benefits Coordinator ID - BISI GCOMPREHENSIVE METABOLIC [id number] 06:03:24 Test Item Value Reference Range Interpretation [...] code = 347) hemolyzed EGFR (BEAKER) (test 144 ESTIMATE D GFR IS code = 1092) mL/min/1.73 sq NOT ACCURA TE m CREATININE CLEARANCE IN PREDICTING GLOMERULAR FILTRATION RATE . ESTIMATED GFR I S NOT APPLICABLE FOR DIALYSIS PATIEN TS. Benefits Coordinator ID - BISI GPOCT-GLUCOSE [id number] 22:25:14 Test Item Value Reference Range Interpretation Comments POC-GLUCOSE METER 312 mg/dL 70-110 H : TESTED A T [facility] 67 ([facility]) (test code = [place] [facility], 1538) [address]: Benefits Coordinator/Techni dakota ID = [id number] for FABRIZIO JOYCE POCT-GLUCOSE [id number] 19:00:17 Test Item Value Reference Range Interpretation Comments POC-GLUCOSE METER 339 mg/dL 70-110 H : Notified RN/MD: ([facility]) (test code = TESTED AT [facility] 6720 1538) [place] [facility], [address]: Benefits Coordinator/Techni dakota ID = [id number] for Rudy mccord (contract)Emeka yana PROTEIN, RANDOM [id number] 08:28:13 Test Item Value Reference Range Interpretation Comments PROTEIN, URINE (BEAKER) (test code 243 mg/dL 0-14 H = 1569) Benefits Coordinator ID - BSOperator ID - BSCREATININE, RANDOM [id number] 07:21:31 Test Item Value Reference Range Interpretation Comments CREATININE URINE (AKER) (test 122.9 mg/dL code = 375) Reference Range: No NormalsOperator ID - BSRAD, CHEST, 1 VIEW, NON DEPT 2021-09-02 01:55:00Reason for exam:->chest painShould this be performed at the bedside?->Yes [facility] : 2000 Sex: MFINAL REPORT History: chest pain. Comparison: None. Findings: A single view of the chest is submitted. The cardiomediastinal contours are unremarkable. There is no focal consolidation, pneumothorax, large pleural effusion or evidence of overt pulmonary edema. There is no acute bony abnormality. Impression: No acute abnormality. Signed: Miles Alicia Verified Date/Time: 09/02/2021 01:55:59 POCT-GLUCOSE [id number] 23:28:42 Test Item Value Reference Range Interpretation Comments POC-GLUCOSE METER 277 mg/dL 70-110 H : TESTED A T [facility] 6720 (Intoo) (test code = [facility], 1538) [address]: Benefits Coordinator/Techni dakota ID = [id number] for PAULINA RODRIGUES POCT-GLUCOSE [id number] 18:19:51 Test Item Value Reference Range Interpretation Comments POC-GLUCOSE METER 263 mg/dL 70-110 H : TESTED A T [facility] 6720 (Intoo) (test code = [facility], 1538) [address]: Benefits Coordinator/Techni dakota ID = [id number] for Laura Ch HIGH SENSITIVITY TROPONIN [id number] 17:04:34 Test Item Value Reference Range Interpretation Comments HIGH SENSITIVITY < pg/ml See_Comment [Automated message] TROPONIN I (test code = The system which 6846442) generated this result transmitted ref erence range: <=35. Th e reference range was not used to interpr et this result as normal/abnormal . Benefits Coordinator ID - BSThe MACHINE ROOM ENGINEER STAT High Sensitivity Troponin-I results should be used in conjunctionwith other diagnostic information such as ECG, clinical observations and information, and patient symptoms to aid in the diagnosis of CT.(CELLAVISION MANUAL DIFF)2021-09-01 10:37:19 Test Item Value Reference [...] CONCENTRATION Decreased (CELLAVISION)(BEAKER) (test code = 3438) Benefits Coordinator ID - [id number] ID - joanna Fuentes comments: Slide comments:CBC W/PLT COUNT & AUTO [id number] 10:37:18 Test Item Value Reference Range Interpretation [...] (BEAKER) (test code = 413) COMPREHENSIVE METABOLIC [id number] 07:28:31 Test Item Value Reference Range Interpretation [...] S NOT APPLICABLE FOR DIALYSIS PATIEN TS. Benefits Coordinator ID - BSIMMUNOGLOBULIN A (IGA)2021-09-01 07:27:15 Test Item Value Reference Range Interpretation Comments IMMUNOGLOBULIN A (IGA) (BEAKER) 235 mg/dL 63-484 (test code = 639) Benefits Coordinator ID - BSPT/[id number] 07:11:49 Test Item Value Reference Range Interpretation [...] RANGESSTANDARD DOSE: 2.0 - 3.0 Includes: PROPHYLAXIS for venous thrombosis, systemic embolization; TREATMENT for venous thrombosis and/or pulmonary embolus.HIGH RISK: Target INR is 2.5-3.5 for patients with mechanical heart valves.PROTHROMBIN TIME/[id number] 07:11:14 Test Item Value Reference Range Interpretation Comments PROTIME (BEAKER) 13.5 seconds 11.9-14.2 (test code = 759) INR (BEAKER) (test 1.04 See_Comment [Automat ed message] code = 370) The system SportSetter generated this result transmitted ref erence range: <=5.90. The reference range was not used to int erpret this result as normal/abnormal . RECOMMENDED COUMADIN/WARFARIN INR THERAPY RANGESSTANDARD DOSE: 2.0 - 3.0 Includes: PROPHYLAXIS for venous thrombosis, systemic embolization; TREATMENT for venous thrombosis and/or pulmonary embolus.HIGH RISK: Target INR is 2.5-3.5 for patients with mechanical heart valves.POCT-GLUCOSE [id number] 22:01:13 Test Item Value Reference Range Interpretation Comments POC-GLUCOSE METER 219 mg/dL 70-110 H : TESTED A T [facility] 6720 (BEAKER) (test code = [facility], 1538) [address]: Benefits Coordinator/Techni dakota ID = [id number] for FABRIZIO JOYCE POCT-GLUCOSE [id number] 17:24:51 Test Item Value Reference Range Interpretation Comments POC-GLUCOSE METER 177 mg/dL 70-110 H : TESTED A T [facility] 6720 (BEAKER) (test code = [facility], 1538) [address]: Benefits Coordinator/Techni dakota ID = [id number] for Laura Ch [id number] 14:29:25 Test Item Value Reference Range Interpretation Comments RPR SCREEN (BEAKER) (test code = Nonreactive Nonreactive 420) RHEUMATOID FACTOR [id number] 14:27:52 Test Item Value Reference Range Interpretation Comments RHEUMATOID FACTOR TITER (BEAKER) (test :8 Negative code = 2285) RHEUMATOID FACTOR AB, REFLEX TO [id number] 14:26:49 Test Item Value Reference Range Interpretation Comments RHEUMATOID FACTOR (BEAKER) (test Positive Negative code = 573) POCT-GLUCOSE [id number] 13:43:32 Test Item Value Reference Range Interpretation Comments POC-GLUCOSE METER 163 mg/dL 70-110 H : TESTED A T [facility] 6720 ([facility]) (test code = [facility], 1538) [address]: Benefits Coordinator/Techni dakota ID = [id number] for Laura Ch RETICULOCYTE [id number] 09:04:11 Test Item Value Reference Range Interpretation Comments RETICULOCYTE COUNT PCT ([facility]) (test 0.4 % 0.5-1.8 L code = 575) Benefits Coordinator ID - [id number]-GLUCOSE [id number] 08:53:33 Test Item Value Reference Range Interpretation Comments POC-GLUCOSE METER 117 mg/dL 70-110 H : TESTED A T [facility] 6720 ([facility]) (test code = [facility], 1538) [address]: Benefits Coordinator/Techni dakota ID = [id number] for José Miguel Elliott [id number] 08:02:13 Test Item Value Reference Range Interpretation Comments FERRITIN (BEAKER) (test code = 65398.20 ng/mL 5.00-275.00 H 361) Benefits Coordinator ID - ADMINOperator ID - ADMINCOMPLEMENT COMPONENT [id number] 06:48:01 Test Item Value Reference Range Interpretation Comments C4 COMPLEMENT (BEAKER) (test code = < mg/dL 15-57 L 394) Benefits Coordinator ID - BSHIV-1 ANTIGEN WITH HIV-1/2 [id number] 06:38:19 Test Item Value Reference Range Interpretation Comments HIV-1 ANTIGEN WITH HIV 1\\T\\2 Nonreactive Nonreactive ANTIBODY (2) ([facility]) (test code = 2586) Benefits Coordinator ID - BSCOMPLEMENT COMPONENT [id number] 06:32:35 Test Item Value Reference Range Interpretation Comments C3 COMPLEMENT (BEAKER) (test code = 13 mg/dL 82-193 L 393) Benefits Coordinator ID - BSCOMPREHENSIVE METABOLIC [id number] 06:30:18 Test Item Value Reference Range Interpretation [...] S NOT APPLICABLE FOR DIALYSIS PATIEN TS. Benefits Coordinator ID - [id number] 06:30:18 Test Item Value Reference Range Interpretation Comments MAGNESIUM (BEAKER) (test code = 1.5 mg/dL 1.6-2.6 L 627) Benefits Coordinator ID - BSPT/[id number] 06:13:21 Test Item Value Reference Range Interpretation [...] RANGESSTANDARD DOSE: 2.0 - 3.0 Includes: PROPHYLAXIS for venous thrombosis, systemic embolization; TREATMENT for venous thrombosis and/or pulmonary embolus.HIGH RISK: Target INR is 2.5-3.5 for patients with mechanical heart valves.PROTHROMBIN TIME/[id number] 06:12:36 Test Item Value Reference Range Interpretation Comments PROTIME (BEAKER) 13.8 seconds 11.9-14.2 (test code = 759) INR (BEAKER) (test 1.08 See_Comment [Automat ed message] code = 370) The system SportSetter generated this result transmitted ref erence range: <=5.90. The reference range was not used to int erpret this result as normal/abnormal . RECOMMENDED COUMADIN/WARFARIN INR THERAPY RANGESSTANDARD DOSE: 2.0 - 3.0 Includes: PROPHYLAXIS for venous thrombosis, systemic embolization; TREATMENT for venous thrombosis [...] WBC 0-0 (test code = 413) BLOOD [id number] 05:00:52 Test Item Value Reference Range Interpretation Comments CULTURE (BEAKER) (test No growth in 5 days code = 1095) BLOOD [id number] 03:00:57 Test Item Value Reference Range Interpretation Comments CULTURE (BEAKER) (test No growth in 5 days code = 1095) The specimen volume collected for this blood culture was below the optimum (10 mL per bottle or 20 mL total). Use of lower volumes may adversely affect recovery and/or detection times of some organisms.POCT-GLUCOSE [id number] 21:20:13 Test Item Value Reference Range Interpretation Comments POC-GLUCOSE METER 132 mg/dL 70-110 H : TESTED A T [facility] 6720 (BEAKER) (test code = [facility], 1538) [address]: Benefits Coordinator/Techni dakota ID = [id number] for SA NDERS, AXEL POCT-GLUCOSE [id number] 17:39:12 Test Item Value Reference Range Interpretation Comments POC-GLUCOSE METER 137 mg/dL 70-110 H : TESTED A T [facility] 6720 (BEAKER) (test code = [facility], 1538) [address]: Benefits Coordinator/Techni dakota ID = [id number] for Nury Link PERIPHERAL BLOOD SMEAR - PATHOLOGIST [id number] 16:27:42 Test Item Value Reference Range Interpretation Comments PERIPHERAL SMR REVIEW Microcytic hypochromic (BEAKER) (test code = anemia with mild 2640) anisopoikilocytosis. Leukopenia with neutropenia and left shifted granulocytic elements. Rare atypical lymphocytes. Decreased platelets; no significant platelet clumping/satellitism identified. [id number] Brea Morales (BEAKER) (test code = Xavier Gallegos 2849) POCT-GLUCOSE [id number] 12:50:21 Test Item Value Reference Range Interpretation Comments POC-GLUCOSE METER 148 mg/dL 70-110 H : TESTED A T [facility] 6720 (BEAKER) (test code = [facility], 1538) [address]: Benefits Coordinator/Techni dakota ID = [id number] for Nury Link MISCELLANEOUS LAB [id number] 12:30:57 Test Item Value Reference Range Interpretation Comments SCAN RESULT (test code = see scanned results [id number]) see scanned [id number] 11:53:39 Test Item Value Reference Range Interpretation Comments LIPASE (BEAKER) (test code = 749) 969 U/L 8-78 H Benefits Coordinator ID - BSANA TITER AND [id number] 10:59:38 Test Item Value Reference Range Interpretation [...] 1+ few (test code = 768) POCT-GLUCOSE [id number] 08:23:03 Test Item Value Reference Range Interpretation Comments POC-GLUCOSE METER 97 mg/dL 70-110 : TESTED A T [facility] 6720 (BEAKER) (test code = [place] [facility], 1538) [address]: Benefits Coordinator/Techni dakota ID = [id number] for Nury Uriostegui [id number] 04:36:10 Test Item Value Reference Range Interpretation Comments MAGNESIUM (BEAKER) (test code = 1.5 mg/dL 1.6-2.6 L 627) Benefits Coordinator ID - BSC-REACTIVE [id number] 04:36:10 Test Item Value Reference Range Interpretation Comments C-REACTIVE PROTEIN (BEAKER) (test 0.77 mg/dL 0.00-0.50 H code = 676) Benefits Coordinator ID - BSCOMPREHENSIVE METABOLIC [id number] 04:36:09 Test Item Value Reference Range Interpretation [...] S NOT APPLICABLE FOR DIALYSIS PATIEN TS. Benefits Coordinator ID - BSPT/[id number] 04:12:17 Test Item Value Reference Range Interpretation [...] RANGESSTANDARD DOSE: 2.0 - 3.0 Includes: PROPHYLAXIS for venous thrombosis, systemic embolization; TREATMENT for venous thrombosis and/or pulmonary embolus.HIGH RISK: Target INR is 2.5-3.5 for patients with mechanical heart valves.PROTHROMBIN TIME/[id number] 04:11:15 Test Item Value Reference Range Interpretation Comments PROTIME (BEAKER) 13.8 seconds 11.9-14.2 (test code = 759) INR (BEAKER) (test 1.08 See_Comment [Automat ed message] code = 370) The system SportSetter generated this result transmitted ref erence range: <=5.90. The reference range was not used to int erpret this result as normal/abnormal . RECOMMENDED COUMADIN/WARFARIN INR THERAPY RANGESSTANDARD DOSE: 2.0 - 3.0 Includes: PROPHYLAXIS for venous thrombosis, systemic embolization; TREATMENT for venous thrombosis [...] WBC 0-0 (test code = 413) POCT-GLUCOSE [id number] 21:48:31 Test Item Value Reference Range Interpretation Comments POC-GLUCOSE METER 136 mg/dL 70-110 H : TESTED A T [facility] 6720 (GENEVA) (test code = [place], 1538) [address]: Benefits Coordinator/Techni dakota ID = [id number] for AXEL COLUNGA SARS-COV2/RT-PCR ([facility])2021-08-29 20:38:24 Test Item Value Reference Range Interpretation Comments SARS-COV2/RT-PCR (test code = Negative Negative 2479204) Negative result for this test determines that [...] under Section 564(g) of the Act.Testing was performed using t farida Surfly SARS-CoV-2 assay.Fact Sheet for Healthcare Providers:https://www.Seafile.Edúkame/pedro/RT SARS-CoV-2 HCP Fact Sheet 51- 495497.pdfFact Sheet for Healthcare Patients:https://www.Cooltech Applications/pedro/RT SARS-CoV-2 Patient Fact Sheet EN 51-204128V7.pdfPOCT-GLUCOSE [id number] 17:55:13 Test Item Value Reference Range Interpretation Comments POC-GLUCOSE METER 109 mg/dL 70-110 : TESTED A T [facility] 6720 (BEAKER) (test code = [facility], 1538) [address]: Benefits Coordinator/Techni dakota ID = [id number] for Toy Lopez [id number] 14:07:15 Test Item Value Reference Range Interpretation Comments LIPASE (BEAKER) (test code = 749) > U/L 8-78 H Benefits Coordinator ID - FATMATA [id number] 14:02:51 Test Item Value Reference Range Interpretation Comments FIBRINOGEN LEVEL (BEAKER) (test 189 mg/dl 225-434 L code = 658) [id number] 13:33:46 Test Item Value Reference Range Interpretation Comments PHOSPHORUS (BEAKER) 2.1 mg/dL 2.3-4.7 L Specimen slightly (test code = 604) hemolyzed Benefits Coordinator ID - FATMATA WPOCT-GLUCOSE [id number] 11:56:19 Test Item Value Reference Range Interpretation Comments POC-GLUCOSE METER 109 mg/dL 70-110 : TESTED A T [facility] 6720 (BEAKER) (test code = [facility], 1538) [address]: Benefits Coordinator/Techni dakota ID = [id number] for Toy Lopez [id number] 10:37:25 Test Item Value Reference Range Interpretation Comments MAGNESIUM (BEAKER) 1.4 mg/dL 1.6-2.6 L Specimen slightly (test code = 627) hemolyzed Benefits Coordinator ID - BSCOMPREHENSIVE METABOLIC [id number] 10:37:25 Test Item Value Reference Range Interpretation [...] S NOT APPLICABLE FOR DIALYSIS PATIEN TS. Benefits Coordinator ID - BSPOCT-GLUCOSE [id number] 08:55:18 Test Item Value Reference Range Interpretation Comments POC-GLUCOSE METER 101 mg/dL 70-110 : TESTED A T [facility] 6720 (BEAKER) (test code = [place] [facility], 1538) [address]: Benefits Coordinator/Techni dakota ID = [id number] for Toy Lopez PROTHROMBIN TIME/[id number] 05:16:55 Test Item Value Reference Range Interpretation Comments PROTIME (BEAKER) 16.3 seconds 11.9-14.2 H (test code = 759) INR (BEAKER) (test 1.33 See_Comment [Automat ed message] code = 370) The system SportSetter generated this result transmitted ref erence range: <=5.90. The reference range was not used to int erpret this result as normal/abnormal . RECOMMENDED COUMADIN/WARFARIN INR THERAPY RANGESSTANDARD DOSE: 2.0 - 3.0 Includes: PROPHYLAXIS for venous thrombosis, systemic embolization; TREATMENT for venous thrombosis [...] WBC 0-0 (test code = 413) POCT-GLUCOSE [id number] 04:41:33 Test Item Value Reference Range Interpretation Comments POC-GLUCOSE METER 122 mg/dL 70-110 H : TESTED A T [facility] 6720 (BEAKER) (test code = [place], 1538) [address]: Benefits Coordinator/Techni dakota ID = [id number] for Rachele Singh HEPATITIS B SURFACE [id number] 19:07:46 Test Item Value Reference Range Interpretation Comments HEPATITIS B SURFACE ANTIGEN (2) Nonreactive Nonreactive (BEAKER) (test code = 2585) Specimen is considered negative for HBsAg.HEPATITIS C [id number] 18:37:24 Test Item Value Reference Range Interpretation Comments HEPATITIS C ANTIBODY (BEAKER) Nonreactive Nonreactive (test code = 367) Benefits Coordinator ID - BSHEPATITIS A ANTIBODY, [id number] 18:29:47 Test Item Value Reference Range Interpretation Comments HEPATITIS A IGG ANTIBODY (BEAKER) Reactive Nonreactive A (test code = 2797) Benefits Coordinator ID - BSHEPATITIS B SURFACE [id number] 18:27:24 Test Item Value Reference Range Interpretation Comments HEPATITIS B SURFACE ANTIBODY 328.2 mIU/mL <8.0 H (BEAKER) (test code = 647) Benefits Coordinator ID - BSHEPATITIS B CORE ANTIBODY, [id number] 18:27:24 Test Item Value Reference Range Interpretation Comments HEPATITIS B CORE TOTAL ANTIBODY Nonreactive Nonreactive (BEAKER) (test code = 497) Benefits Coordinator ID - BSRapid drug screen, [id number] 18:17:41 Test Item Value Reference Range Interpretation Comments Barbiturate Screen Negative Negative (test code = 55687-6) Benzodiazepine Screen Negative Negative (test code = 74852-1) Cocaine (Metab.) Negative Negative Screen (test code = 3397-7) Methadone Screen (test Negative Negative code = 42378-2) Opiate Screen (test Negative Negative code = 74652-2) Cannabinoid Screen Negative Negative (test code = 91202-8) Amph/Methamph Screen Negative Negative (test code = 34303-4) Phencyclidine Screen Negative Negative (test code = 12499-3) pH, UA (test code = 7.5 5.0-8.0 5803-2) IDALIA (test code = IDALIA) DRUG CUTOFF CONC.Cocaine 300 ng/mL Cannabinoid 50 ng/mLBenzodiazepine 200 ng/mLBarbiturate 200 ng/mLPhencyclidine 25 ng/mLOpiate 300 ng/mLMethadone 300 ng/mLAmphetamine/ 1000 ng/mL Methamphetamine This assay provides an unconfirmed qualitative test result for the clinical management of patients in emergency situations. Chain of custody not maintained. Some sjhi-wty-ugigadh medications, as well as adulterants, may cause inaccurate results. Clinical correlation should be applied. A more comprehensive drug screen or confirmation of a detected drug may be performed upon request.Benefits Coordinator ID - BS Lab Interpretation Normal (test code = 11183-8) [facility], [id number] 18:17:41 Test Item Value Reference Range Interpretation [...] situations. Chain of custody not maintained. Some ebam-dvs-donohel medications, as well as adulterants, may cause inaccurate results. Clinical correlation should be applied. A more comprehensive drug screen or confirmation of a detected drug may be performed upon request.Benefits Coordinator ID - BSIMMUNOGLOBULIN G (IGG)2021-08-28 18:13:19 Test Item Value Reference Range Interpretation Comments IMMUNOGLOBULIN G (IGG) 1400 mg/dL See_Comment [Aut omated message] (BEAKER) (test code = The sy stem which 427) generated this result transmit hernandez reference range : 540-1,822. The reference range was not used to interpret this result as normal/abnormal . Benefits Coordinator ID - BSIRON, TIBC, % SAT. (WITHOUT FERRITIN)2021-08-28 18:13:19 Test Item Value Reference Range Interpretation Comments IRON (BEAKER) (test code = 547) 139.0 ug/dL 40.0-160.0 TOTAL IRON BINDING CAPACITY 178 ug/dL 250-450 L (BEAKER) (test code = 769) IRON % SATURATION (2) (BEAKER) 78 % 20-55 H (test code = 2590) Benefits Coordinator ID - [id number] 16:36:26 Test Item Value Reference Range Interpretation Comments FERRITIN (BEAKER) (test code = 07729.56 ng/mL 5.00-275.00 H 361) Benefits Coordinator ID - BSOperator ID - [id number] 14:45:11 Test Item Value Reference Range Interpretation Comments ALPHA-1 ANTITRYPSIN 130.90 mg/dL 90.00-200.00 Specimen slightly (BEAKER) (test code = hemoly zed 502) Benefits Coordinator ID - DBPOCT-GLUCOSE [id number] 14:23:23 Test Item Value Reference Range Interpretation Comments POC-GLUCOSE METER 97 mg/dL 70-110 : TESTED A T [facility] 6720 (BEAKER) (test code = [facility], 1538) [address]: Benefits Coordinator/Techni dakota ID = [id number] for José Miguel Larkin POCT-GLUCOSE [id number] 08:20:47 Test Item Value Reference Range Interpretation Comments POC-GLUCOSE METER 85 mg/dL 70-110 : [facility] T [facility] 6720 [facility] (test code = [facility], 1538) 24[address]: Benefits Coordinator/Techni dakota ID = [id number] for José Miguel Larkin COMPREHENSIVE METABOLIC [id number] 06:21:17 Test Item Value Reference Range Interpretation [...] S NOT APPLICABLE FOR DIALYSIS PATIEN TS. Benefits Coordinator ID - [id number] 06:03:12 Test Item Value Reference Range Interpretation Comments MAGNESIUM (BEAKER) (test code = 1.8 mg/dL 1.6-2.6 627) Benefits Coordinator ID - DBCBC (HEMOGRAM ONLY)2021-08-28 05:04:44 Test [...] WBC 0-0 (test code = 413) POCT-GLUCOSE [id number] 22:30:31 Test Item Value Reference Range Interpretation Comments POC-GLUCOSE METER 99 mg/dL 70-110 : Notified RN/MD: TESTED (BEAKER) (test code = AT [facility] [address] 1538) [place], [address]: Benefits Coordinator/Techni dakota ID = [id number] for Artur Anders MR, ABDOMEN, [id number] 18:44:00Unlisted Reason for Exam - Click Yes and Enter Reason Below->No [facility] : 2000 Sex: MFINAL REPORT TECHNIQUE: MRI of the abdomen and MRCP WITHOUT and WITH intravenous contrast. 3-D volume reconstructions were obtained to evaluate the biliary ductal system. INDICATION: Biliary obstruction suspected, pancreatitis. COMPARISON: None. FINDINGS: LOWER THORAX: Unremarkable. LIVER: Liver demonstrates diffusely decreased signal on opposed phase images consistent with severe hepatic steatosis.. No focal hepatic lesions. BILIARY: Gallbladder is contracted. No cholelithiasis.. No biliary ductal dilatation or filling defect.SPLEEN: Spleen is enlarged measuring 15 cm in length..PANCREAS: Pancreas demonstrates normal T1 hyperintense signal. No peripancreatic edema. No focal masses or ductal dilatation. No peripancreatic fluid collection. ADRENALS: No adrenal nodules.KIDNEYS/URETERS: No hydronephrosis or solid mass lesions. PERITONEUM/RETROPERITONEUM: No free fluid.LYMPH NODES: No l ymphadenopathy.VESSELS: Renal vein, splenic vein and superior mesenteric vein are patent.. GI TRACT:No distention or wall thickening. BONES AND SOFT TISSUES: Unremarkable. IMPRESSION:Severe hepatic steatosis. Splenomegaly. Normal appearance of the pancreas without findings to suggest acute pancreatitis. No peripancreatic fluid collection. No biliary ductal dilation. Signed: Armaan Llanes MDReport Verified Date/Time: 08/27/2021 18:44:20 Reading Location: [place] [id number] CT Body Reading Room MR, ABDOMEN, [id number] 18:44:00Pancreas protocol Unlisted Reason for Exam - Click Yes and Enter Reason Below->No Does the patient have an implanted electronic device?->No [facility] : 2000 Sex: MFINAL REPORT TECHNIQUE: MRI of the abdomen and MRCP WITHOUT and WITH intravenous contrast. 3-D volume reconstructions were obtained to evaluate the biliary ductal system. INDICATION: Biliary obstruction suspected, pancreatitis. COMPARISON: None. FINDINGS: LOWER THORAX: Unremarkable. LIVER: Liver demonstrates diffusely decreased signal on opposed phase images consistent with severe hepatic steatosis.. No focal hepatic lesions. BILIARY: Gallbladder is contracted. No cholelithiasis.. No biliary ductal dilatation or filling defect.SPLEEN: Spleen is enlarged measuring 15 cm in length..PANCREAS: Pancreas demonstrates normal T1 hyperintense signal. No peripancreatic edema. No focal masses or ductal dilatation. No peripancreatic fluid collection. ADRENALS: No adrenal nodules.KIDNEYS/URETERS: No hydronephrosis or solid mass lesions. PERITONEUM/RETROPERITONEUM: No free fluid.LYMPH NODES: No l ymphadenopathy.VESSELS: Renal vein, splenic vein and superior mesenteric vein are patent.. GI TRACT:No distention or wall thickening. BONES AND SOFT TISSUES: Unremarkable. IMPRESSION:Severe hepatic steatosis. Splenomegaly. Normal appearance of the pancreas without findings to suggest acute pancreatitis. No peripancreatic fluid collection. No biliary ductal dilation. Signed: Armaan Llanes MDReport Verified Date/Time: 08/27/2021 18:44:20 Reading Location: [facility] C013Y CT Body Reading Room COMPREHENSIVE METABOLIC [id number] 06:35:42 Test Item Value Reference Range Interpretation [...] S NOT APPLICABLE FOR DIALYSIS PATIEN TS. Benefits Coordinator ID - MARIBEL [id number] 06:34:17 Test Item Value Reference Range Interpretation Comments MAGNESIUM (BEAKER) (test code = 2.1 mg/dL 1.6-2.6 627) Benefits Coordinator ID - MARIBEL LCBC (HEMOGRAM ONLY)2021-08-27 06:06:14 Test Item Value [...] WBC 0-0 (BEAKER) (test code = 413) [id number] 12:41:39 Test Item Value Reference Range Interpretation Comments LIPASE (BEAKER) (test code = 749) 1190 U/L 8-78 H Benefits Coordinator ID - ALVINA MURINALYSIS W/ REFLEX URINE [id number] 07:27:57 Test Item Value Reference Range Interpretation [...] = 1521) SOURCE(BEAKER) (test code = 2795) Benefits Coordinator ID - [auto]Benefits Coordinator ID - tech(CELLAVISION MANUAL DIFF)2021-08-26 03:09:42 Test [...] CONCENTRATION Decreased (CELLAVISION)(BEAKER) (test code = 3438) Benefits Coordinator ID - HannaOperator ID - Kyree comments: Slide comments:CBC W/PLT COUNT & AUTO [id number] 03:09:41 Test Item Value Reference Range Interpretation [...] (BEAKER) (test code = 413) COMPREHENSIVE METABOLIC [id number] 02:27:26 Test Item Value Reference Range Interpretation [...] S NOT APPLICABLE FOR DIALYSIS PATIEN TS. Benefits Coordinator ID - ALVINA [id number] 02:26:17 Test Item Value Reference Range Interpretation Comments TRIGLYCERIDES (BEAKER) (test code = 175 mg/dL 540) TRIGLYCERIDE REFERENCE RANGELow Risk <150Borderline Risk 150-199High Risk 200-499Very High Risk >=500Operator ID - ALVINA [id number] 02:26:16 Test Item Value Reference Range Interpretation Comments MAGNESIUM (BEAKER) (test code = 2.2 mg/dL 1.6-2.6 627) Benefits Coordinator ID - ALVINA MPROTHROMBIN [id number] 02:13:14 Test Item Value Reference Range Interpretation Comments PROTIME (BEAKER) 26.7 seconds 11.9-14.2 H (test code = 759) INR (BEAKER) (test 2.49 See_Comment [Automat ed message] code = 370) The system [employer] generated this result transmitted ref erence range: <=5.90. The reference range was not used to int erpret this result as normal/abnormal . RECOMMENDED COUMADIN/WARFARIN INR THERAPY RANGESSTANDARD DOSE: 2.0 - 3.0 Includes: PROPHYLAXIS for venous thrombosis, systemic embolization; TREATMENT for venous thrombosis and/or pulmonary embolus.HIGH RISK: Target INR is 2.5-3.5 for patients with mechanical heart valves.
[2022-01-24] MEDS ORDERED: ONDANSETRON 4 MG/2 ML VIAL ONE (22:30)
[2022-01-24] MEDS ORDERED: MORPHINE 4 MG/ML SYR ONE (22:30)
[2022-01-24] MEDS ORDERED: NA CHLORIDE 0.9% 1,000 ML ONE (22:30)
[2022-01-24 22:32] LABS: Absolute Lymphocytes (CBC) 1.3 K/uL (0.7-4.9); Hematocrit 35.2 % (39.6-49.0); Lymphocytes % 9.1 % (15.3-44.8); MCV 74.8 fL (80-100); MPV 8.2 fL (7.6-11.3); RBC Red Blood Cell Count 4.71 M/uL (4.33-5.43)
[2022-01-24 22:43] LABS: SARS-CoV-2 Antigen Rapid Res Negative (Negative)
[2022-01-24 22:44] LABS: Albumin 2.8 g/dL (3.4-5.0); Bilirubin Total 0.6 mg/dL (0.2-1.0); Potassium 3.6 mmol/L (3.5-5.1); Protein, Total 7.4 g/dL (6.4-8.2)
--- NOTE | 2022-01-24 23:05 | RAD REPORT ---
EXAM DESCRIPTION: CT - Head Brain Wo Cont - 01/24/2022 10:43 pm CLINICAL HISTORY: Dizziness, non-specific Headache, drowsiness, hypertension. COMPARISON: Head Brain Wo Cont dated 08/10/2021 TECHNIQUE: All CT scans are performed using dose optimization technique as appropriate and may inclu de automated exposure control or mA/KV adjustment according to patient size. FINDINGS: No intracranial hemorrhage, hydrocephalus or extra-axial fluid collection.No areas of brai n edema or evidence of midline shift. The paranasal sinuses and mastoids are clear. The calvarium is intact. IMPRESSION: No acute intracranial abnormality.
--- NOTE | 2022-01-24 23:09 | RAD REPORT ---
EXAM DESCRIPTION: CTAbdomen Pelvis W Contrast - 01/24/2022 10:42 pm CLINICAL HISTORY: Abdominal pain. Epigastric pain COMPARISON: Abdomen Pelvis W Contrast dated 12/06/2021; Abdomen Pelvis W Contrast dated 08/25/2021 TECHNIQUE: Biphasic CT imaging of the abdomen and pelvis was performed with 100 ml non-ionic IV cont rast. All CT scans are performed using dose optimization technique as appropriate and may include automated exposure control or mA/KV adjustment according to patient size. FINDINGS: The lung bases are clear. Mild diffuse fatty liver is present. Air and fluid collection seen along the anterior medial margin o f the spleen currently measures 6.1 x 3.4 cm and is moderately reduced in size relative to comparativ e November study. The number of small loculated fluid collections in the left upper quadrant has also red uced since prior study. The portal venous system is patent. Pancreatic parenchyma shows no pathologic finding. Both adrenal g lands kidneys are normal. No bowel obstruction, free air, or free fluid evident. Previously noted drain traversing central abdo men has been removed. A single linear clip is present anterior to the pancreatic. The appendix is nor mal. No evidence of significant lymphadenopathy. No suspicious bony findings. IMPRESSION: Moderate improvement in the left upper quadrant loculated fluid collections in terms of size and number since November prior study. No new/acute or progressive abnormality is detected.
[2022-01-25] MEDS ORDERED: MORPHINE 4 MG/ML SYR ONE (00:37)
[2022-01-25] MEDS ORDERED: NA CHLORIDE 0.9% 100 ML ONE ×2 (00:55→01:39)
[2022-01-25] MEDS ORDERED: PIPERACIL/TAZO 3.375 GM VIAL IV ONE (00:55)
--- NOTE | 2022-01-25 01:18 | EDPHYS ---
Physician Documentation [facility] Name: Sal Gomez Age: 21 yrs Sex: Male : 2000 Arrival Date: 01/24/2022 Time: 21:11 Bed 5 Private MD: ED Physician Angel Mcdonald HPI: 01/24 21:50 This 21 yrs old Male presents to ER via Ambulatory with complaints of Abdominal pain. pm1 21:50 The patient presents with abdominal pain in the left upper quadrant. Onset: The pm1 symptoms/episode began/occurred 3 day(s) ago. The symptoms do not radiate. Associated signs and symptoms: Pertinent positives: nausea, elevated blood pressure and dizziness, Pertinent negatives: chest pain, fever, shortness of breath. The symptoms are described as achy, constant. Modifying factors: The symptoms are alleviated by nothing, the symptoms are aggravated by nothing. Severity of pain: in the emergency department the pain is actually worse. The patient has experienced similar episodes in the past, Patient was admitted to [facility] from November to December for 1 month due to pancreatitis requiring surgical intervention, removal of necrotic tissue. Patient was discharged home with antibiotics, 3 antibiotics that he completed taking last Saturday. Patient is concerned he may have continued fluid buildup in that area and was told by Dr. Valdes if it did not resolve he would require a drain in that area again. The patient has not recently seen a physician. Historical: - Allergies: 21:28 No Known Allergies; kb3 - Home Meds: 21:28 gabapentin 300 mg Oral tab three times a day [Active]; trazodone 150 mg Oral Tb24 1 tab kb3 nightly [Active]; Zoloft 25 mg Oral tab 1 tab once daily [Active]; carvedilol 25 mg oral tab [Active]; - Immunization history:: Adult Immunizations up to date, Client reports receiving the 2nd dose of the Covid vaccine, Last tetanus immunization: unknown. - Social history:: Smoking status: Reported history of juuling and/or vaping. ROS: 21:50 Constitutional: Negative for fever, chills, and weight loss, Cardiovascular: Negative pm1 for chest pain, palpitations, and edema, Respiratory: Negative for shortness of breath, cough, wheezing, and pleuritic chest pain. 21:50 Back: Negative for injury and pain, MS/Extremity: Negative for injury and deformity, Skin: Negative for injury, rash, and discoloration. 21:50 Abdomen/GI: Positive for abdominal pain, nausea, of the left upper quadrant, Negative for vomiting, diarrhea. 21:50 All other systems are negative. 21:50 Neuro: Positive for dizziness, Negative for headache, numbness, tingling, weakness. pm1 Exam: 21:50 Constitutional: This is a well developed, well nourished patient who is awake, alert, pm1 and in no acute distress. Head/Face: Normocephalic, atraumatic. 21:50 Back: No spinal tenderness. No costovertebral tenderness. Full range of motion. Skin: Warm, dry with normal turgor. Normal color with no rashes, no lesions, and no evidence of cellulitis. MS/ Extremity: Pulses equal, no cyanosis. Neurovascular intact. Full, normal range of motion. 21:50 Eyes: Exam is negative for acute changes, Periorbital structures: appear normal, Pupils: no acute changes, Extraocular movements: no acute changes, Conjunctiva: normal. 21:50 ENT: Exam is negative for External ear(s): are unremarkable, Ear canal(s): are normal, Mouth: no acute changes, Lips: normal, moist, Oral mucosa: normal, pink and intact, moist. 21:50 Cardiovascular: Rate: tachycardic, Rhythm: regular, Pulses: no pulse deficits are appreciated. 21:50 Respiratory: Exam negative for acute changes, respiratory distress, shortness of breath, Breath sounds: are clear throughout. 21:50 Abdomen/GI: Inspection: scar(s), Palpation: soft, in all quadrants, moderate abdominal tenderness, in the left upper quadrant. 21:50 Neuro: Exam negative for acute changes, Orientation: is normal, Mentation: is normal, Motor: is normal, moves all fours. Vital Signs: 21:24 BP 154 / 110; Pulse 120; Resp 20; Temp 98.1; Pulse Ox 100% ; Weight 99.79 kg; Height 5 kb3 ft. 8 in. (172.72 cm); Pain 7/10; 23:08 BP 118 / 73; Pulse 108; Resp 20 S; Pulse Ox 97% on R/A; Pain 6/10; bb 01/25 01:06 BP 127 / 82; Pulse 113; Resp 18 S; Pulse Ox 97% on R/A; bb 02:18 BP 121 / 81; Pulse 110; Resp 18 S; Temp 98.3(O); Pulse Ox 96% on R/A; bb 03:25 BP 126 / 87; Pulse 104; Resp 16 S; Pulse Ox 95% on R/A; bb 01/24 21:24 Body Mass Index 33.45 (99.79 kg, 172.72 cm) kb3 MDM: 01/24 21:38 Patient medically screened. pm1 01/25 00:39 Data reviewed: vital signs. Data interpreted: Pulse oximetry: on room air is 97 %. pm1 Interpretation: normal. 00:39 Counseling: I had a detailed discussion with the patient and/or guardian regarding: the pm1 historical points, exam findings, and any diagnostic results supporting the discharge/admit diagnosis, lab results, radiology results, the need to transfer to another facility, for higher level of care. 01:13 Physician consultation: MD Dorado was contacted at 01:11, regarding regarding transfer, pm1 patient's condition, and will see patient. 01:13 ED course: Dr Dorado requested Meropenum and dicloxacillin, micafungin but only pm1 meropenum present in our hospital. Will initiate the meropenum here in the ER. 01/24 21:47 Order name: CBC with Diff; Complete Time: 23:20 pm1 01/24 21:47 Order name: CMP; Complete Time: 01:51 pm1 01/24 21:47 Order name: Lipase; Complete Time: 01:51 pm1 01/24 21:49 Order name: SARS RAPID; Complete Time: 23:20 pm1 01/24 22:58 Order name: CREATININE WHOLE BLOOD; Complete Time: 23:20 EDMS 01/25 00:22 Order name: Blood Culture Adult (2) pm1 01/24 21:48 Order name: CT Abd/Pelvis - IV Contrast Only; Complete Time: 23:20 pm1 01/24 21:49 Order name: CT Head Brain wo Cont; Complete Time: 23:20 pm1 01/25 01:19 Order name: Lactic Dehydrogenase pm1 01/25 01:49 Order name: Lactic Dehydrogenase; Complete Time: 01:51 EDMS 01/24 21:47 Order name: IV Saline Lock; Complete Time: 22:35 pm1 01/24 21:47 Order name: Labs collected and sent; Complete Time: 22:35 pm1 01/24 21:49 Order name: EKG; Complete Time: 21:50 pm1 01/24 21:49 Order name: EKG - Nurse/Tech; Complete Time: 22:35 pm1 EC/07 21:44 Rate is 113 beats/min. Rhythm is regular, Sinus tachycardia with No ectopy. QRS [place] is pm1 Normal. MA interval is normal. QRS interval is normal. QT interval is normal. No Q waves. T waves are Normal. No ST changes noted. Clinical impression: Sinus tachycardia. Administered Medications: 22:20 Drug: Zofran (Ondansetron) 4 mg Route: IVP; Site: left upper arm; bb 23:08 Follow up: Response: No adverse reaction bb 22:20 Drug: NS 0.9% 1000 ml Route: IV; Rate: 1000 ml; Site: left upper arm; bb 23:30 Follow up: IV Status: Completed infusion; IV Intake: 950ml bb 22:28 Drug: morphine 4 mg Route: IVP; Infused Over: 4 mins; Site: left upper arm; bb 23:08 Follow up: Response: No adverse reaction; Pain is decreased bb 23:30 Follow up: Response: No adverse reaction; Pain is decreased bb 01/25 00:30 Drug: morphine 4 mg Route: IVP; Infused Over: 4 mins; Site: left upper arm; kl 01:30 Follow up: Response: No adverse reaction; Pain is decreased bb 01:04 Drug: Zosyn (piperacillin-tazobactam) 3.375 grams Route: IVPB; Infused Over: 60 mins; bb Site: left upper arm; 01:33 Follow up: IV Status: Completed infusion; IV Intake: 100ml bb 01:33 Drug: Meropenem 1 grams Route: IV; Rate: calculated rate; Site: left upper arm; bb 02:16 Follow up: IV Status: Completed infusion; IV Intake: 100ml bb 02:16 Drug: NS 0.9% 1000 ml Route: IV; Rate: 125 ml/hr; Site: left antecubital; bb 02:17 Follow up: IV Status: Infusion continued upon transfer bb 03:34 Drug: Dilaudid (HYDROmorphone) 1 mg Route: IVP; Site: left upper arm; bb 03:34 Follow up: Response: medication administered on transfer bb Disposition: 06:33 Co-signature as Attending Physician, Angel Mcdonald MD. rn Disposition Summary: 01/25/22 01:17 Transfer Ordered Transfer Location: [facility] pm1 Reason: Higher level of care pm1 Condition: Stable pm1 Problem: new pm1 Symptoms: have improved pm1 Accepting Physician: Estrada MANUEL(01/25/22 03:36) ryan Diagnosis - Intraabdominal abscess pm1 Forms: - Medication Reconciliation Form pm1 - SBAR form pm1 Signatures: Dispatcher [employer] Radha Barajas RN RN kl Ballard, Brenda, RN RN bb Nieto, Roman, MD MD rn Marinas, Patrick, NP STEREOTYPER APPRENTICE pm1 Shannan Stanley RN RN kb3 Corrections: (The following items were deleted from the chart) 01/24 21:29 21:28 Home Meds: metoprolol tartrate 25 mg Oral tab 1 tab 2 times per day; kb3 kb3 21:29 21:28 Home Meds: prednisone 50 mg Oral tab once daily; kb3 kb3 21:30 21:29 Home Meds: metoprolol tartrate 25 mg Oral tab 1 tab 2 times per day; kb3 kb3 21:30 21:29 Home Meds: prednisone 50 mg Oral tab once daily; kb3 kb3 21:30 21:29 PMHx: CVA; kb3 kb3 21:30 21:29 PMHx: Hypertensive disorder; kb3 kb3 21:30 21:29 PMHx: Lupus; kb3 kb3 21:30 21:29 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 01/25 01:18 01:17 Estrada pm1 pm1 01:35 0907 21:50 Back: Negative for injury and pain, MS/Extremity: Negative for injury and pm1 deformity, Skin: Negative for injury, rash, and discoloration, Neuro: Negative for headache, weakness, numbness, tingling, and seizure, pm1 01/25 03:36 01:18 Estrada MANUEL pm1 bb
--- NOTE | 2022-01-25 01:18 | ER ---
Nurse's Notes [facility] Name: Sal Gomez Age: 21 yrs Sex: Male : 2000 Arrival Date: 01/24/2022 Time: 21:11 Bed 5 Private MD: Diagnosis: Intraabdominal abscess Presentation: 01/24 21:24 Chief complaint: Patient states: Pt reports BP was high this morning but he did not kb3 want to come in. Reports tonight he is feeling worse and experiencing abdominal pain. Pt reports he took all medications as prescribed today. Coronavirus screen: Vaccine status: Patient reports receiving the 2nd dose of the covid vaccine. Client denies travel out of the [place] in the last 14 days. Ebola Screen: Patient negative for fever greater than or equal to 101.5 degrees Fahrenheit, and additional compatible Ebola Virus Disease symptoms Patient denies exposure to infectious person. Patient denies travel to an Ebola-affected area in the 21 days before illness onset. No symptoms or risks identified at this time. Initial Sepsis Screen: Does the patient meet any 2 criteria? No. Patient's initial sepsis screen is negative. Does the patient have a suspected source of infection? No. Patient's initial sepsis screen is negative. Risk Assessment: Do you want to hurt yourself or someone else? Patient reports no desire to harm self or others. Onset of symptoms was January 24, 2022 at 08:00. 21:24 Method Of Arrival: Ambulatory kb3 21:24 Acuity: DANICA 3 kb3 Triage Assessment: 21:29 General: Appears in no apparent distress. Behavior is calm, cooperative. Pain: kb3 Complains of pain in epigastric area Pain does not radiate. Pain currently is 8 out of 10 on a pain scale. Quality of pain is described as sharp, shooting. Historical: - Allergies: 21:28 No Known Allergies; kb3 - Home Meds: 21:28 gabapentin 300 mg Oral tab three times a day [Active]; trazodone 150 mg Oral Tb24 1 tab kb3 nightly [Active]; Zoloft 25 mg Oral tab 1 tab once daily [Active]; carvedilol 25 mg oral tab [Active]; - Immunization history:: Adult Immunizations up to date, Client reports receiving the 2nd dose of the Covid vaccine, Last tetanus immunization: unknown. - Social history:: Smoking status: Reported history of juuling and/or vaping. Screenin:40 Abuse screen: Denies threats or abuse. Nutritional screening: No deficits noted. bb Tuberculosis screening: No symptoms or risk factors identified. Fall Risk None identified. Assessment: 21:40 General: Appears in no apparent distress. uncomfortable, Behavior is calm, cooperative. bb Pain: Complains of pain in abdomen. Neuro: Level of Consciousness is awake, alert, obeys commands, Oriented to person, place, time, situation. Cardiovascular: Capillary refill < 3 seconds Patient's skin is warm and dry. Rhythm is sinus tachycardia. Respiratory: Respiratory effort is even, unlabored, Respiratory pattern is regular, Breath sounds are clear bilaterally. GI: Abdomen is non-distended, Bowel sounds present X 4 quads. Abd is soft X 4 quads Abdomen is tender to palpation in right upper quadrant and left upper quadrant. Derm: Skin is pale. Musculoskeletal: Circulation, motion, and sensation intact. 23:07 Reassessment: Patient is alert, oriented x 3, equal unlabored respirations, skin bb warm/dry/pink. pt states pain has improved a little but still 6/10 IV site intact, patent with fluids infusing. 01/25 01:06 Reassessment: Patient is alert, oriented x 3, equal unlabored respirations, skin bb warm/dry/pink. pt instructed on need for transfer pt verbalized understanding of and agrees to plan of care awaiting acceptance. 01:49 Reassessment: called report to Gwen LEE for [facility]. bb 03:25 Reassessment: pt sleeping, eyes closed, resp unlabored, awaiting transport, IV site bb intact, patent with fluids infusing. 03:35 Reassessment: Patient is alert, oriented x 3, equal unlabored respirations, skin bb warm/dry/pink. [facility] at bedside pt aroused easily A\T\O x 4, resp unlabored, IV site intact, patent with fluids infusing, medicated per JUL. Vital Signs: 01/24 21:24 BP 154 / 110; Pulse 120; Resp 20; Temp 98.1; Pulse Ox 100% ; Weight 99.79 kg; Height 5 kb3 ft. 8 in. (172.72 cm); Pain 7/10; 23:08 BP 118 / 73; Pulse 108; Resp 20 S; Pulse Ox 97% on R/A; Pain 6/10; bb 01/25 01:06 BP 127 / 82; Pulse 113; Resp 18 S; Pulse Ox 97% on R/A; bb 02:18 BP 121 / 81; Pulse 110; Resp 18 S; Temp 98.3(O); Pulse Ox 96% on R/A; bb 03:25 BP 126 / 87; Pulse 104; Resp 16 S; Pulse Ox 95% on R/A; bb 01/24 21:24 Body Mass Index 33.45 (99.79 kg, 172.72 cm) kb3 ED Course: 01/24 21:11 Patient arrived in ED. es 21:15 Viraj Bruce NP is PHCP. pm1 21:15 Angel Mcdonald MD is Attending Physician. pm1 21:28 Triage completed. kb3 21:29 Arm band placed on right wrist. kb3 21:40 Patient has correct armband on for positive identification. Placed in gown. Bed in low bb position. Call light in reach. Side rails up X 1. Adult w/ patient. Client placed on continuous cardiac and pulse oximetry monitoring. NIBP monitoring applied. awake overnight monitor on. 22:10 Initial lab(s) drawn, by me, sent to lab. COVID swab sent to lab. Flu and/or RSV swab bb sent to lab. Accessed peripheral vein via ultrasound, utilizing dynamic ultrasound technique Powerglide midline 18g 10cm to left upper arm using hospital protocol good blood return and flushes easily pt tolerated well. 22:26 Ariadna Marques, RN is Primary Nurse. bb 22:44 CT Abd/Pelvis - IV Contrast Only In Process Unspecified. EDMS 22:45 CT Head Brain wo Cont In Process Unspecified. EDMS 01/25 02:18 No provider procedures requiring assistance completed. Patient transferred, IV remains bb in place. Administered Medications: 01/24 22:20 Drug: Zofran (Ondansetron) 4 mg Route: IVP; Site: left upper arm; bb 23:08 Follow up: Response: No adverse reaction bb 22:20 Drug: NS 0.9% 1000 ml Route: IV; Rate: 1000 ml; Site: left upper arm; bb 23:30 Follow up: IV Status: Completed infusion; IV Intake: 950ml bb 22:28 Drug: morphine 4 mg Route: IVP; Infused Over: 4 mins; Site: left upper arm; bb 23:08 Follow up: Response: No adverse reaction; Pain is decreased bb 23:30 Follow up: Response: No adverse reaction; Pain is decreased bb 01/25 00:30 Drug: morphine 4 mg Route: IVP; Infused Over: 4 mins; Site: left upper arm; 01:30 Follow up: Response: No adverse reaction; Pain is decreased bb 01:04 Drug: Zosyn (piperacillin-tazobactam) 3.375 grams Route: IVPB; Infused Over: 60 mins; bb Site: left upper arm; 01:33 Follow up: IV Status: Completed infusion; IV Intake: 100ml bb 01:33 Drug: Meropenem 1 grams Route: IV; Rate: calculated rate; Site: left upper arm; bb 02:16 Follow up: IV Status: Completed infusion; IV Intake: 100ml bb 02:16 Drug: NS 0.9% 1000 ml Route: IV; Rate: 125 ml/hr; Site: left antecubital; bb 02:17 Follow up: IV Status: Infusion continued upon transfer bb 03:34 Drug: Dilaudid (HYDROmorphone) 1 mg Route: IVP; Site: left upper arm; bb 03:34 Follow up: Response: medication administered on transfer bb Medication: 01/24 21:40 VIS not applicable for this client. bb Intake: 23:30 IV: 950ml; Total: 950ml. bb 01/25 01:33 IV: 100ml; Total: 1050ml. bb 02:16 IV: 100ml; Total: 1150ml. bb Output: 02:17 Urine: 350ml (Voided); Total: 350ml. bb 03:25 Urine: 200ml (Voided); Total: 550ml. bb Outcome: 01:17 ER care complete, transfer ordered by MD. pm1 02:18 Instructed on the need for transfer. bb 03:26 Condition: stable bb 03:36 Transferred by ground EMS to [facility], Transfer form completed. bb X-rays sent w/ patient. 03:36 Patient left the ED. bb Signatures: Dispatcher [employer] Radha Barajas RN RN kl Salyer, Edna es Ballard, Brenda, RN RN bb Viraj Bruce, [employer] pm1 Shannan Stanley RN RN kb3 Corrections: (The following items were deleted from the chart) 01/24 21:29 21:28 Home Meds: metoprolol tartrate 25 mg Oral tab 1 tab 2 times per day; kb3 kb3 21:29 21:28 Home Meds: prednisone 50 mg Oral tab once daily; kb3 kb3 21:30 21:29 Home Meds: metoprolol tartrate 25 mg Oral tab 1 tab 2 times per day; kb3 kb3 21:30 21:29 Home Meds: prednisone 50 mg Oral tab once daily; kb3 kb3 21:30 21:29 PMHx: CVA; kb3 kb3 21:30 21:29 PMHx: Hypertensive disorder; kb3 kb3 21:30 21:29 PMHx: Lupus; kb3 kb3 21:30 21:29 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
[2022-01-25] MEDS ORDERED: Meropenem 1000 MG/VIAL IV ONE (01:39)
[2022-01-25] MEDS ORDERED: NA CHLORIDE 0.9% 1,000 ML ONE (02:15)
[2022-01-25] MEDS ORDERED: HYDROMORPHONE HCL 1 MG/ML INJ ONE (02:18)
[2022-01-25 07:42] VITALS: TEMP 98.3
[2022-01-25 07:44] VITALS: BP 126/87; O2SAT 95
--- NOTE | 2022-01-25 10:51 | EKG ---
Test Date: 2022-01-24 Test Time: 21:36:04 Rn Occupational: [employer] MEASUREMENT RESULTS: Intervals: Rate: 113 WA: 164 QRSD: 78 QT: 316 QTc: 433 [place]: P: 47 WA: 164 QRS: 56 T: 34 INTERPRETIVE STATEMENTS: Sinus tachycardia Otherwise normal ECG Compared to ECG 08/25/2021 13:46:28 T-wave abnormality no longer present Possible ischemia no longer present Electronically Signed On 01-25-22 10:49:58 CDT by Mitchell Villeda
== END 2022-01-25 03:36 | disposition short-term general hospital (02) ==
LOC: ER 21:05
DX: K65.1 Peritoneal abscess (principal); Z20.822 Contact with and (suspected) exposure to COVID-19
CPT/HCPCS: 96365; 96367; 96361; 93005; 87040 ×2; 85025; 36415; 83615; 82565; 83690; 80053; 70450; 74177; 96375; 99285; 87811; Q9967; J2543; J2185; J1170; J7030 ×2; J2405

== ENCOUNTER 2022-03-13 18:16 | Emergency (ER) | payer OTHER ==
--- OUTSIDE RECORDS SUMMARY | 2022-03-13 18:40 | XMS REPORT | Continuity of Care Document ---
:2000 Author Organization [facility] t Address [address] [place] [address] Care Team Providers Name Role Phone [id number] Attending Clinician Unavailable WILLARD CROUCH EMILE Attending Clinician Unavailable Bro MANUEL, Stefany Attending Clinician Abiodun MANUEL, Silvio Mccray Attending Clinician SILVIO RASCON Attending Clinician Unavailable Masood MANUEL, Cy Attending Clinician Willard Crouch Attending Clinician Unavailable Estrada MANUEL, Gricelda Galindo Attending Clinician Gabriel MANUEL, Nilsa Graham Attending Clinician Deshawn MANUEL, Keron Marino Attending Clinician Galo MANUEL, Shama Angulo Attending Clinician Irina Benitez MD Attending Clinician GRICELDA ARTEAGA Attending Clinician Unavailable IRINA BENITEZ Attending Clinician Unavailable Tamia Jha Attending Clinician Hallie MANUEL, Marck Johnson Attending Clinician [phone] Amado Goyal MD Attending Clinician Shawn Lamared Attending Clinician Jason MANUEL, Millie Barr Attending Clinician Laith MANUEL, Khushi Goode Attending Clinician [phone] Marva MANUEL, Bethany Roberts Attending Clinician Xochitl MANUEL, Melissa Attending Clinician Shala MANUEL, Suhail Conner Attending Clinician [phone] BETHANY DURHAM Attending Clinician Unavailable AMADO GOYAL Attending Clinician Unavailable DOUG JOSHI Attending Clinician Unavailable Edouard MANUEL, Kimmy Madrid Attending Clinician Rebecca MANUEL, Kathy Echols Attending Clinician [phone] SUHAIL MAN Attending Clinician Unavailable Cherri MANUEL, Aravind Ordaz Attending Clinician Vicki MANUEL, Ary Hargrove Attending Clinician [phone] Victor M MANUEL, Mana Mireles Attending Clinician Mervin MANUEL, Vernell Hunt Attending Clinician [phone] Rose Lorenzo MD Attending Clinician Karen MANUEL, Oren Attending Clinician Rebecca Cuellar MD Attending Clinician BEAR OSPINA Attending Clinician Unavailable [id number] Admitting Clinician Unavailable TI, WILLARD, WILLARD Admitting Clinician Unavailable SILVIO RASCON Admitting Clinician Unavailable Ti, Willard Admitting Clinician Unavailable GRICELDA ARTEAGA Admitting Clinician Unavailable BETHANY DURHAM Admitting Clinician Unavailable KNOW, DOES_NOT Admitting Clinician Unavailable CY CORREIA Admitting Clinician Unavailable VERNELL GONZALEZ Admitting Clinician Unavailable Payers Payer Name Policy Type Policy Number Effective Date Expiration Date [facility] [id number] [id number] [facility] [id number] GENERIC-CIGNA - [id number] 2021 2021 CIGNA 00:00:00 00:00:00 [facility] [id number] [facility]-MEDICAID - [id number] MEDICAID MEDICAID [place] [id number] 2021 00:00:00 Problems Condition Condition Condition Status Onset Resolution Last Treating Co mments Source Name Details Category Date Date Treatment Clinician Date Abscess Abscess Disease Active 2021-[address] [facility] between between 0-20 [facility] intestinal intestinal 00:00: Me dical loops loops 00 [place] Abscess Abscess Disease Active [facility] 9[facility]08 [facility] 00:00: Medical 00 [place] Intra-abdo Intra-abdo Disease Active [facility] modesta modesta 7-21 [facility] abscess abscess 00:00: Medical 00 [place] Necrotizin Necrotizin Disease Active [facility] g g 5-12 [facility] pancreatit pancreatit 00:00: Me dical is is 00 [place] Severe Severe Disease Active [facility] protein-ca protein-ca 4-15 Jessica kes tracy tracy 00:00: Medical malnutriti malnutriti 00 Ce nter on (Gorman: on (Gorman: less than less than 60% of 60% of standard standard weight) weight) Elevated Elevated Disease [facility] ferritin ferritin [facility]13 [facility] (>16k) (>16k) 00:00: Medical 00 [place] Pancytopen Pancytopen Disease Active [facility] ia ia 4-13 [facility] 00:[facility]: Medical 00 Center Pre-diabet Pre-diabet Disease Active [facility] es es 4-09 [facility] 00:00: Medical 00 [place] Hx of TIA Hx of TIA Disease Active [facility] (transient (transient 4-09 J[facility] kes ischemic ischemic 00:00: Medica l attack) attack) 00 Center and stroke and stroke Rheumatoid Rheumatoid Disease Active [facility] arthritis arthritis 4-09 [facility] involving involving 00:00: Medi doreen multiple multiple 00 Center sites sites Acute Acute Disease Active [facility] biliary biliary 4-08 [facility] pancreatit pancreatit 00:00: Me dical is is 00 [place] Hyperbilir Hyperbilir Disease Active [facility] ubinemia ubinemia 4-08 [facility] 00:00: Medical 00 [place] Elevated Elevated Disease Active [facility] LFTs LFTs 08-25 [facility] 00:00: Medical 00 [place] SLE SLE Disease Active [facility] (systemic (systemic 4 [facility] 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:00: Medical erythemato erythemato 00 Ce nter margot margot related related syndrome) syndrome) Bipolar Bipolar Disease Active [facility] disorder disorder 08-25 [facility] 00:00: Medical 00 [place] Essential Essential Disease Active [facility] hypertensi hypertensi 08 [facility] on on 00:00: Medical 00 Center Allergies, Adverse Reactions, Alerts Allergy Allergy Status Severity Reaction(s) Onset Inactive Treating Comm ents Source Name Type Date Date Clinician ADHESIVE Allergy Active 2021-05 [facility] TAPE 0-21 00:00: 00 Adhesive Propensi Active 2021-[address] [facility] Tape ty to 0-21 [facility] adverse 00:00: Medical reaction 00 [place] s NO KNOWN Allergy Active [facility] ALLERGIE [facility] Family History Family Member Diagnosis Comments Start Date Stop Date Source Natural father Drug abuse [facility] Natural mother Drug abuse [facility] Social History Social Habit Start Date Stop Date Quantity Comments Source History [facility] Alcohol intake 2022-03-08 2022-03-08 Ex-drinker [facility] 00:00:00 00:00:00 (finding) Medical Center Tobacco use and 2021-12-08 2021-12-[address] [facility] exposure 00:00:00 00:00:00 Medical Center History [facility] 2021-12-08 2021-12-[address] [facility] Transport Med 00:00:00 00:00:[address] [facility] 2021-12-08 2021-12-[address] [facility] Housing Unable to 00:00:00 00:00:00 Medical Center Pay History [facility] 2021-12-08 2021-12-[address] [facility] Housing Homeless 00:00:00 00:00:00 Medical Center Last Year History [facility] 2021-08-26 2021-08-[address] [facility] Places 00:00:00 00:00:00 Medical Ce nter Lived Sex Assigned At 2000 2001 [facility] ferns 00:00:00 00:00:00 Medical Center Smoking Status Start Date Stop Date Source Former smoker 2021-12-08 00:00:00 2021-12-08 00:00:00 [facility] Medications Ordered Filled Start Stop Current Ordering Indication Dosage Frequency Signature Comments Components Source Medication Medication Date Date Medication? Clinician (SIG) Name Name enoxaparin 2021-05 Yes 40mg QD Inject [address] (LOVENOX) 0-25 mg [facility] 40 mg/0.4 15:17: subcutaneo Me dical mL Syrg 26 usly Center daily. fluconazole 2021-05- Yes 400mg QD Take [address] (DIFLUCAN) 0-25 11-20 tablets [facility] 200 MG 00:00: 23:59 (400 mg Medical tablet 00 :00 total) by Center mouth daily for 26 days. predniSONE 2021-05- Yes 7.5mg QD Take [address] [facility] (DELTASONE) 0-25 11-08 tablets Luke s 2.5 MG 00:00: 23:59 (7.5 mg Medical tablet 00 :00 total) by Center mouth daily for 14 days. predniSONE 2021-05- No 7.5mg QD Take [address] [facility] (DELTASONE) 0-25 10-24 tablets Luke s 2.5 MG 00:00: 00:00 (7.5 mg Medical tablet 00 :00 total) by Center mouth daily for 5 days. risperiDONE 2021-05- No .5mg QD Take 0.[address] (RisperDAL) 0-24 10-24 mg by [facility] 0.5 MG 12:03: 00:00 mouth Medical tablet 30 :00 daily. Center metFORMIN 2021-05- No 500mg Take [address] (GLUCOPHAGE 0-24 10-24 mg by [facility] ) 500 MG 12:03: 00:00 mouth 2 Medic al tablet 30 :00 (two) Center times daily with breakfast and dinner. traZODone 2021-05 No 100mg QD Take [address] (DESYREL) 0-24 10-24 mg by [facility] 100 MG 12:03: 00:00 mouth Medical tablet 30 :00 nightly. Center HYDROcodone 2021-05 Yes 1{tbl} Take [address] -acetaminop 0-24 tablet by Jody mehta (NORCO 00:00: mouth Medica l 5-325) 00 every 6 Center 5-325 mg (six) per tablet hours as needed for Pain for up to 10 doses. Max Daily Amount: 4 tablets mycophenola 2021-05- Yes 180mg Q.5D Take [address] te 0-24 10-24 tablet [facility] (MYFORTIC) 00:00: 23:59 (180 mg Med ical 180 MG EC 00 :00 total) by Cente r tablet mouth 2 (two) times daily. metroNIDAZO 2021-05- Yes 500mg Take [address] LE (FLAGYL) 0-24 11-20 tablet [facility] 500 MG 00:00: 23:59 (500 mg Medical tablet 00 :00 total) by Center mouth every 8 (eight) hours for 27 days. cefdinir 2021-05- Yes 300mg Q.5D Take 1 [facility] (OMNICEF) 0-24 11-20 capsule [facility] 300 MG 00:00: 23:59 (300 mg Medical capsule 00 :00 total) by Center mouth 2 (two) times daily for 27 days. gabapentin 2021-05- Yes 400mg Q.[id number] Take [address] [facility] (NEURONTIN) 0-24 10-29 [id number] capsule [facility] 400 MG 00:00: 23:59 3D (400 mg Medical capsule 00 :00 total) by Center mouth 3 (three) times daily for 5 days. morphine 2021-05- Yes 30mg Take [address] [facility] (MS CONTIN) 0-24 10-29 tablet (30 L ukes 30 MG 12 hr 00:00: 23:59 mg total) Medical tablet 00 :00 by mouth Center every 12 (twelve) hours for 5 days. Max Daily Amount: 60 mg metoprolol 2021-05- Yes 25mg Q.5D Take [address] [facility] tartrate 0-24 10-29 tablet (25 [facility] (LOPRESSOR) 00:00: 23:59 mg total) Medical 25 MG 00 :00 by mouth 2 Center tablet (two) times daily for 5 days. hydrOXYchlo 2021-05- Yes 200mg Q.5D Take [address] roQUINE 0-12 03- tablet [facility] (PLAQUENIL) 00:00: 23:59 (200 mg Me dical 200 mg 00 :00 total) by Center tablet mouth 2 (two) times daily for 5 days. pantoprazol 2021-05- Yes 40mg QD Take [address] [facility] e 0-03-17 tablet (40 [facility] (PROTONIX) 00:00: 23:59 mg total) M edical 40 MG 00 :00 by mouth Center tablet daily for 5 days. risperiDONE 2021-05- Yes .5mg QD Take [address] [facility] (RisperDAL) 03-17 tablet [facility] 0.5 MG 00:00: 23:59 (0.5 mg Medical tablet 00 :00 total) by Center mouth daily for 5 days. sertraline 2021-05- Yes 50mg QD Take [address] [facility] (ZOLOFT) 50 03-17 tablet (50 L ukes MG tablet 00:00: 23:59 mg total) Me dical 00 :00 by mouth Center daily for 5 days. traZODone 2021-05- Yes 100mg QD Take [address] [facility] (DESYREL) 03-17 tablet [facility] 100 MG 00:00: 23:59 (100 mg Medical tablet 00 :00 total) by Center mouth nightly for 5 days. predniSONE 2021- No 7.5mg QD Take [address] [facility] (DELTASONE) 02-12 tablets Luke s 2.5 MG 00:00: 23:59 (7.5 mg Medical tablet 00 :00 total) by Center mouth daily for 10 days. fluconazole 2021- No 200mg QD Take [address] (DIFLUCAN) 02-12 tablet [facility] 200 MG 00:00: 23:59 (200 mg Medical tablet 00 :00 total) by Center mouth daily for 7 days. lidocaine 2021- Yes 1{patch Q24H Place [address] (LIDODERM) 02-11 } patch onto Jessica kes 5 % patch 00:00: 23:59 the skin Med ical 00 :00 daily for Center 30 days Remove & Discard patch within 12 hours or as directed by . ciprofloxac 2021- No 500mg Take [address] in HCl 9-25 10-24 tablet [facility] (CIPRO) 500 00:00: 00:00 (500 mg Me dical MG tablet 00 :00 total) by Cente r mouth every 12 (twelve) hours. senna-docus 2021- No 2{tbl} Q.5D Take [address] ate 9-25 10-24 tablets by [facility] (SENOKOT S) 00:00: 00:00 mouth 2 Me dical 8.6-50 mg 00 :00 (two) Center per tablet times daily. metroNIDAZO 2021- No 500mg Take [address] [facility] [address] LE (FLAGYL) 9- 10-24 tablet [facility] 500 MG 00:00: 00:00 (500 mg Medical tablet 00 :00 total) by Center mouth every 8 (eight) hours. insulin 2021- No 0U Inject 0-[address] [facility] lispro -25 10-24 Units [facility] (HumaLOG) 00:00: 00:00 subcutaneo M edical 100 unit/mL 00 :00 usly 3 Center injection (three) times daily before meals. mycophenola 2021- No 250mg Q.5D Take [address] te 9-25 10-24 capsule [facility] (CELLCEPT) 00:00: 00:00 (250 mg Med ical 250 mg 00 :00 total) by Center capsule mouth 2 (two) times daily. traMADoL 2021- No 100mg Q.25D Take [address] 100 mg Tab 9-25 10-05 mg by [facility] 00:00: 23:59 mouth 4 Medical 00 :00 (four) Center times daily for 10 days. Max Daily Amount: 400 mg methocarbam 2021- No 500mg Q.25D Take [address] oL 9-25 10-05 tablet [facility] (ROBAXIN) 00:00: 23:59 (500 mg Medi doreen 500 MG 00 :00 total) by Center tablet mouth 4 (four) times daily for 10 days. polyethylen 2021- No 17g Q.5D Take [address] [facility] e glycol 02-11 by mouth 2 Luke s (GLYCOLAX) 00:00: 23:59 (two) Medic al 17 gram 00 :00 times Center packet daily for 3 days. mycophenola 2021- No 500mg Q.5D Take [address] te 01-03 tablet [facility] (CELLCEPT) 00:00: 00:00 (500 mg Med ical 500 mg 00 :00 total) by Center tablet mouth 2 (two) times daily for 30 days. mycophenola 2021- Yes 500mg Q.5D Take [address] te 01-03 tablet [facility] (CELLCEPT) 00:00: 23:59 (500 mg Med ical 500 mg 00 :00 total) by Center tablet mouth 2 (two) times daily for 30 days. predniSONE 2021- No Take [address] [facility] (DELTASONE) 12-26 tablets Luke s 5 MG tablet 00:00: 00:00 (25 mg Med ical 00 :00 total) by Center mouth daily for 4 days, THEN 4 tablets (20 mg total) daily for 30 days. predniSONE 2021- Yes Take [address] [facility] (DELTASONE) 12-26- tablets Luke s 5 MG tablet 00:00: 23:59 (25 mg Med ical 00 :00 total) by Center mouth daily for 4 days, THEN 4 tablets (20 mg total) daily for 30 days. DAPTOmycin 2021- No 800mg Q24H Inject [address] (CUBICIN) 12-26- mg [facility] in sodium 00:00: 23:59 intravenou M edical chloride 00 :00 sly daily Center (NS) for 7 NON-DEHP 50 days. ML IVPB ertapenem 2021- No 1g Q24H Inject [address] (INVanz) 1 12-26- intravenou Jessica kes g in NS 100 00:00: 23:59 sly daily Medical mL (V2B) 00 :00 for 7 Center IVPB days. mICAFUNGin 2021- No 100mg Q24H Inject [address] [facility] 100 mg in 8-09 08-16 mg [facility] NS 0.9% 100 00:00: 23:59 intravenou Medical mL (V2B) 00 :00 sly daily Center IVPB for 7 days. DAPTOmycin 2021- No 800mg Q24H Inject [address] (CUBICIN) 12-26-16 mg [facility] in sodium 00:00: 23:59 intravenou M edical chloride 00 :00 sly daily Center (NS) for 7 NON-DEHP 50 days. ML IVPB ertapenem 2021- No 1g Q24H Inject [address] (INVanz) 1 12-26-16 intravenou Jessica kes g in NS 100 [...] by Center mouth daily for 30 days. predniSONE 0 2021- No 25mg QD Take [address] [facility] (DELTASONE) 12-26-08 tablets Luke s 5 MG tablet 00:00: 00:00 (25 mg Med ical 00 :00 total) by Center mouth daily for 30 days. risperiDONE 0 Yes .5mg QD Take 0.[address] (RisperDAL) 8-08 mg by [facility] 0.5 MG 23:36: mouth Medical tablet 04 daily. [place] metFORMIN 2021-0 Yes 500mg Take [address] [facility] (GLUCOPHAGE 8-08 mg by [facility] ) 500 MG 23:36: mouth 2 Medica l tablet 04 (two) Center times daily with breakfast and dinner. traZODone 0 Yes 100mg QD Take [address] [facility] (DESYREL) 8-08 mg by [facility] 100 MG 23:36: mouth Medical tablet 04 nightly. [place] enoxaparin Yes 40mg QD Inject [address] (LOVENOX) 8-08 mg [facility] 40 mg/0.4 23:36: subcutaneo Me dical mL Syrg 04 [facility] daily. predniSONE 2021- No 50mg QD Take [address] [facility] (DELTASONE) 8 08-08 by mouth Jody es 50 MG 16:30: 00:00 daily. Medical tablet 18 :00 Center predniSONE 2021- No 50mg QD Take [address] [facility] (DELTASONE) 12-25-08 by mouth Jody es 50 MG 16:30: 00:00 daily. Medical tablet 18 :00 Center HYDROcodone Yes 1{tbl} Take [address] -acetaminop 8-08 tablet by Jody mehta (NORCO 00:00: mouth Medica l 5-325) 00 every 6 Center 5-325 mg (six) per tablet hours as needed for Pain for up to 10 doses. Max Daily Amount: 4 tablets HYDROcodone 2021- No 1{tbl} Take [address] -acetaminop 8-08 10-24 tablet by Jessica mehta (NORCO 00:00: 00:00 mouth Medic al 5-325) 00 :00 every 6 Center 5-325 mg (six) per tablet hours as needed for Pain for up to 10 doses. Max Daily Amount: 4 tablets sulfamethox Yes 160mg{t Q.[id number] Take [address] [facility] [address] azole-trime 5-25 rimetho [id number] tablet [facility] thoprim 00:00: prim} 3W (160 mg of Med ical (BACTRIM 00 trimethopr Cente r DS) 800-160 im total) mg per by mouth 3 tablet (three) times a week SAT/SAT/ I. sulfamethox 2021-2021- No 160mg{t Q.[id number] Take [address] [facility] [address] azole-trime 5-25 09-25 rimetho [id number] tablet [facility] thoprim 00:00: 00:00 prim} 3W (160 mg of Me dical (BACTRIM 00 :00 trimethopr Cente r DS) 800-160 im total) mg per by mouth 3 tablet (three) times a week SAT/SAT/ I. levoFLOXaci 2021-0 2021- No 750mg QD Take [address] n 10-10- tablet [facility] (LEVAQUIN) 00:00: 00:00 (750 mg Med ical 750 MG 00 :00 total) by Center tablet mouth daily. metroNIDAZO 2021-0 2021- No 500mg Q.[id number] Take [address] [facility] LE (FLAGYL) 10-10 [id number] tablet [facility] 500 MG 00:00: 00:00 3D (500 mg Medical tablet 00 :00 total) by Center mouth 3 (three) times daily. levoFLOXaci 2021-2021- No 750mg QD Take [address] [facility] n 10-10 tablet [facility] (LEVAQUIN) 00:00: 00:00 (750 mg Med ical 750 MG 00 :00 total) by Center tablet mouth daily. metroNIDAZO 2021-0 2021- No 500mg Q.[id number] Take [address] [facility] LE (FLAGYL) 10-10 [id number] tablet [facility] 500 MG 00:00: 00:00 3D (500 mg Medical tablet 00 :00 total) by Center mouth 3 (three) times daily. predniSONE 2021-0 2021- No 50mg QD Take [address] [facility] (DELTASONE) 10-10- tablet (50 L ukes 50 MG 00:00: 23:59 mg total) Medica l tablet 00 :00 by mouth Center daily for 30 days. predniSONE 2021-0 2021- No 50mg QD Take [address] [facility] (DELTASONE) 10-10- tablet (50 L ukes 50 MG 00:00: 23:59 mg total) Medica l tablet 00 :00 by mouth Center daily for 30 days. morphine 2021-0 2021- No 15mg Take [address] [facility] (MSIR) 15 10-10- tablet (15 Jody es MG tablet 00:00: 23:59 mg total) Me dical 00 :00 by mouth Center every 4 (four) hours as needed for up to 10 days. Max Daily Amount: 90 mg methocarbam 2021-0 2021- No 1000mg Q.25D Take [address] [facility] oL 10-10-03 tablets [facility] (ROBAXIN) 00:00: 23:59 (1,000 mg Me dical 500 MG 00 :00 total) by Center tablet mouth 4 (four) times daily for 10 days. LORazepam 2021-2021- No .5mg Take 1 [facility] (ATIVAN) 10-10- tablet [facility] 0.5 MG 00:00: 23:59 (0.5 mg Medical tablet 00 :00 total) by Center mouth 2 (two) times daily as needed for Anxiety for up to 10 days. Max Daily Amount: 1 mg methocarbam 2021- No 1000mg Q.25D Take [address] [facility] oL 10-10- tablets [facility] (ROBAXIN) 00:00: 23:59 (1,000 mg Me dical 500 MG 00 :00 total) by Center tablet mouth 4 (four) times daily for 10 days. LORazepam 2021-2021- No .5mg Take 1 [facility] (ATIVAN) 10-10 tablet [facility] 0.5 MG 00:00: 23:59 (0.5 mg Medical tablet 00 :00 total) by Center mouth 2 (two) times daily as needed for Anxiety for up to 10 days. Max Daily Amount: 1 mg morphine 2021- No 15mg Take [address] [facility] (MSIR) 15 10-10 tablet (15 Jody es MG tablet 00:00: 23:59 mg total) Me dical 00 :00 by mouth Center every 4 (four) hours as needed for up to 10 days. Max Daily Amount: 90 mg sulfamethox 2021-2021- No 160mg{t Q.[id number] Take [address] [facility] azole-trime 09-25 rimetho [id number] tablet [facility] thoprim 00:00: 00:00 prim} 3W (160 mg of Me dical (BACTRIM 00 :00 trimethopr Cente r DS) 800-160 im total) mg per by mouth 3 tablet (three) times a week SAT/SAT/ I. sulfamethox 2021-0 2021- No 160mg{t Q.[id number] Take [address] [facility] [address] azole-trime 09-25 rimetho [id number] tablet [facility] thoprim 00:00: 00:00 prim} 3W (160 mg of Me dical (BACTRIM 00 :00 trimethopr Cente r DS) 800-160 im total) mg per by mouth 3 tablet (three) times a week SAT/SAT/ I. pantoprazol Yes 40mg QD Take [address] [facility] e -07 tablet (40 [facility] (PROTONIX) 00:00: mg total) Me dical 40 MG 00 by mouth Center tablet daily. sertraline 2022- No 50mg QD Take [address] [facility] (ZOLOFT) 50 09-23- tablet (50 L ukes MG tablet 00:00: 23:59 mg total) Me dical 00 :00 by mouth Center daily. pantoprazol 2021- No 40mg QD Take [address] [facility] e 09-23 tablet (40 [facility] (PROTONIX) 00:00: 00:00 mg total) M edical 40 MG 00 :00 by mouth Center tablet daily. sertraline 2021- No 50mg QD Take [address] [facility] (ZOLOFT) 50 09-23- tablet (50 L ukes MG tablet 00:00: 00:00 mg total) Me [...] No Use as [facility] (HumuLIN N) 09-23- directed. Jessica kes 100 unit/mL 00:00: 00:00 Medic al injection 00 :00 Center predniSONE 2021- No 80mg QD Take [address] [facility] (DELTASONE) 09-23-24 tablets Luke s 20 MG 00:00: 00:00 [...] 00:00: 00:00 Medic al injection 00 :00 [place] predniSONE 2021- No 5mg QD Take [address] (DELTASONE) 09-2206 by mouth Jody es 5 MG tablet 16:07: 00:00 daily. Med ical 21 :00 [place] CARVEDILOL 2021- No Take by [facility] ORAL 09-22- mouth. [facility] 16:07: 00:00 Medical 21 :00 [place] tramadol 2021- No Take by [facility] HCl 09-22-06 mouth. [facility] (TRAMADOL 16:07: 00:00 Medical ORAL) 21 :00 [place] predniSONE No 5mg QD Take [address] (DELTASONE) 09-22-06 by mouth Jody es 5 MG tablet 16:07: 00:00 daily. Med ical 21 :00 [place] CARVEDILOL 2021- No Take by [facility] ORAL 09-22- mouth. [facility] 16:07: 00:00 Medical 21 :00 [place] tramadol 2021- No Take by [facility] HCl 09-22-06 mouth. [facility] (TRAMADOL 16:07: 00:00 Medical ORAL) 21 :00 [place] calcium 2022- No 2{tbl} Q.[id number] Take [address] [facility] carbonate-v 09-22- [id number] tablets by JessicaDasient itamin D3 00:00: 23:59 3D mouth 3 Medi doreen (OSCAL-D) 00 :00 (three) [place] 500 times mg(1,250mg) daily. -200 unit per tablet pancrelipas 2022- No [id number]{ Take [address] [facility] e, 09-22-06 lipase} capsules JessicaDasient Lip-Prot-Am 00:00: 23:59 (72,000 Me dical yl, (CREON) 00 :00 units of Cent er 24,000-76,0 lipase 00 -120,000 total) by unit CpDR mouth 3 capsule (three) times daily with meals. calcium 2022- No 2{tbl} Q.[id number] Take [address] [facility] carbonate-v -10 22- [id number] tablets by Luabraham itamin D3 00:00: 23:59 3D mouth 3 Medi doreen (OSCAL-D) 00 :00 (three) Center 500 times mg(1,250mg) daily. -200 unit per tablet cholestyram 2022- No 1{packe Q.5D Take [address] [facility] ine 09-22- t} packet by Jarad (QUESTRAN) 00:00: 23:59 mouth 2 Med ical 4 gram PwPk 00 :00 (two) Center packet times daily. clotrimazol 2022- No Q.5D Apply [facility] e 09-22-06 topically [facility] (LOTRIMIN) 00:00: 23:59 2 (two) Med ical 1 % cream 00 :00 times Center daily. gabapentin 2022- No 400mg Q.[id number] Take [address] [facility] (NEURONTIN) 09-22- [id number] capsule [facility] 400 MG 00:00: 23:59 3D (400 mg Medical capsule 00 :00 total) by Center mouth 3 (three) times daily. hydrOXYchlo 2022- No 200mg Q.5D Take [address] roQUINE 09-22-06 tablet [facility] (PLAQUENIL) 00:00: 23:59 (200 mg Me dical 200 mg 00 :00 total) by Center tablet mouth 2 (two) times daily. metoprolol 2022- No 25mg Q.5D Take [address] [facility] [address] tartrate 09-22-06 tablet (25 [facility] (LOPRESSOR) 00:00: 23:59 mg total) Medical 25 MG 00 :00 by mouth 2 Center tablet (two) times daily. pancrelipas 2022- No [id number]{ Take [address] [facility] e, 09-22 05-06 lipase} capsules [facility] Lip-Prot-Am 00:00: 23:59 (72,000 Me dical yl, (CREON) 00 :00 units of Cent er 24,000-76,0 lipase 00 -120,000 total) by unit CpDR mouth 3 capsule (three) times daily with meals. acetaminoph 2022- No 650mg Take [address] [facility] en 09-22 05-01 tablets [facility] (TYLENOL) 00:00: 23:59 (650 mg Medi doreen 325 MG 00 :00 total) by Center tablet mouth every 6 (six) hours as needed for up to 360 days. acetaminoph 2021-2022- No 650mg Take [address] [facility] en 5 05-01 tablets [facility] (TYLENOL) 00:00: 23:59 (650 mg Medi doreen 325 MG 00 :00 total) by Center tablet mouth every 6 (six) hours as needed for up to 360 days. gabapentin 2021-2021- No 400mg Q.[id number] Take [address] [facility] (NEURONTIN) 09-22 [id number] capsule [facility] 400 MG 00:00: 00:00 3D (400 mg Medical capsule 00 :00 total) by Center mouth 3 (three) times daily. hydrOXYchlo 2021-2021- No 200mg Q.5D Take [address] roQUINE 09-2224 tablet [facility] (PLAQUENIL) 00:00: 00:00 (200 mg Me dical 200 mg 00 :00 total) by Center tablet mouth 2 (two) times daily. metoprolol 2021-2021- No 25mg Q.5D Take [address] [facility] [address] tartrate 09-2224 tablet (25 [facility] (LOPRESSOR) 00:00: 00:00 mg total) Medical 25 MG 00 :00 by mouth 2 Center tablet (two) times daily. cholestyram 2021-2021- No 1{packe Q.5D Take [address] [facility] ine 09-22 09-25 t} packet by [facility] (QUESTRAN) 00:00: 00:00 mouth 2 Med ical 4 gram PwPk 00 :00 (two) Center packet times daily. clotrimazol 2021-2021- No Q.5D Apply [facility] e 09-22-25 topically [facility] (LOTRIMIN) 00:00: 00:00 2 (two) Med ical 1 % cream 00 :00 times Center daily. morphine 2021- No 15mg Take [address] [facility] (MS CONTIN) 09-22 tablet (15 L ukes 15 MG 12 hr 00:00: 23:59 mg total) Medical tablet 00 :00 by mouth Center every 8 (eight) hours for 30 days. Max Daily Amount: 45 mg morphine No 15mg Take [address] [facility] (MS CONTIN) 09-22 tablet (15 L ukes 15 MG 12 hr 00:00: 23:59 mg total) Medical tablet 00 :00 by mouth Center every 8 (eight) hours for 30 days. Max Daily Amount: 45 mg insulin [facility] Use as [facility] 09-22 directed. Jessica kes 100 unit/mL 00:00: 00:00 Medic al injection 00 :00 Center loperamide No 4mg [id number] Take [address] [facility] (IMODIUM) 2 09-22 [id number] capsules [facility] capsule 00:00: 00:00 3D (4 mg Medic al 00 :00 total) by Center mouth 3 (three) times daily for 10 days. LORazepam No .5mg Take 1 [facility] [...] tablet (four) times daily for 10 days. insulin NPH 2021- No Use as [facility] ([facility]) 09-22 directed. Jessica kes 100 unit/mL 00:00: 00:00 Medic al injection 00 :00 Center loperamide 2021- No 4mg [id number] Take [address] [facility] (IMODIUM) 2 09-22 [id number] capsules [facility] capsule 00:00: 00:00 3D [...] Observation Time Observation Value Comments Source HEIGHT 2022-03-08 19:00:00 172.7 cm WEIGHT 2022-03-08 19:00:00 99.428 kg HEIGHT 2022-03-08 19:00:00 172.7 cm WEIGHT 2022-03-08 19:00:00 99.428 kg HEIGHT 2022-03-08 19:00:00 172.7 cm WEIGHT 2022-03-08 19:00:00 99.428 kg HEIGHT 2022-01-25 04:49:00 172.7 cm WEIGHT 2022-01-25 04:49:00 87.544 kg HEIGHT 2022-01-25 04:49:00 172.7 cm WEIGHT 2022-01-25 04:49:00 87.544 kg HEIGHT 2022-01-25 04:49:00 172.7 cm WEIGHT 2022-01-25 04:49:00 87.544 kg HEIGHT 2021-12-07 12:30:00 172.7 cm WEIGHT [...] WEIGHT 2021-08-26 16:00:00 95.845 kg Systolic blood 2022-03-12 11:02:00 175 mm[Hg] [facility] Diastolic blood 2022-03-12 11:02:00 120 mm[Hg] [facility] Heart rate 2022-03-12 11:02:00 75 /min [facility] Body temperature 2022-03-12 11:02:00 36.78 Lori [facility] Respiratory rate 2022-03-12 11:02:00 18 /min [facility] Oxygen saturation in 2022-03-12 11:02:00 97 /min [facility] Arterial blood by Medical Ce nter Pulse oximetry Body height 2022-03-08 19:00:00 172.7 cm [facility] Body weight 2022-03-08 19:00:00 99.428 kg [facility] BMI 2022-03-08 19:00:00 33.33 kg/m2 [facility] Systolic blood 2021-12-25 15:25:00 123 mm[Hg] [facility] Diastolic blood 2021-12-25 15:25:00 76 mm[Hg] [facility] Heart rate 2021-12-25 15:25:00 103 /min [facility] Body temperature 2021-12-25 15:25:00 36.78 Lori [facility] Respiratory rate 2021-12-25 15:25:00 18 /min [facility] Oxygen saturation in 2021-12-25 15:25:00 95 /min [facility] Arterial blood by Medical Ce nter Pulse oximetry Body height 2021-12-07 12:30:00 172.7 cm [facility] Body weight 2021-12-07 12:30:00 95.255 kg [facility] BMI 2021-12-07 12:30:00 31.93 kg/m2 [facility] Procedures Procedure Date / Time Performing Clinician Source Performed CBC (HEMOGRAM ONLY) 2022-03-12 05:05:00 Alex Hernández [facility] BASIC METABOLIC PANEL 2022-03-12 05:05:00 Alex Hernández [facility] CT ABDOMEN/PELVIS WITH IV 2022-03-11 00:26:00 Alex Hernández [facility] CBC W/PLT COUNT & AUTO 2022-03-10 04:22:[address] [facility] BASIC METABOLIC PANEL 2022-03-10 04:22:00 AbiodunSilvio [facility] CBC W/PLT COUNT & AUTO 2022-03-10 04:22:[address] [facility] XR CHEST 1 VIEW PORTABLE / 2022-03-06 15:10:[address] [facility] CT ABDOMEN/PELVIS WITH IV 2022-03-01 08:41:00 Cy Correia [facility] [place] ASPIRATION OR INJECTION 2022-02-27 15:05:00 Lyle Wisdom [facility] MR LOWER EXTREMITY JOINT 2022-02-25 14:00:00 Lyle Wisdom [facility] ONLY WITHOUT IV CONTRAST [facility] RIGHT XR HIP 2 VIEWS BILATERAL 2022-02-24 08:03:00 Cy Correia [facility] COMPLEMENT COMPONENT C3 2022-02-11 12:36:[address] [facility] DOUBLE-STRANDED DNA (DSDNA) 2022-02-11 12:36:00 Maganti, Lynette [facility] MAGNESIUM 2022-02-11 04:08:00 Marcwileyjennifer [facility] PHOSPHORUS 2022-02-11 04:08:00 [facility] W/PLT COUNT & AUTO 2022-02-11 04:08:00 Eli [facility] BASIC METABOLIC PANEL 2022-02-11 04:08:00 Eli [facility] CBC W/PLT COUNT & AUTO 2022-02-11 04:08:00 Eli [facility] CBC W/PLT COUNT & AUTO 2022-02-10 05:06:00 [facility] BASIC METABOLIC PANEL 2022-02-10 05:06:00 Eli [facility] CBC W/PLT COUNT & AUTO 2022-02-10 05:06:00 Eli [facility] MAGNESIUM 2022-02-09 03:57:00 [facility] 2022-02-09 03:57:00 [facility] CBC W/PLT COUNT & AUTO 2022-02-09 03:57:00 [facility] BASIC METABOLIC PANEL 2022-02-09 03:57:00 [facility] CBC W/PLT COUNT & AUTO 2022-02-09 03:57:00 Eli [facility] CBC W/PLT COUNT & AUTO 2022 09:54:00 Robert Bean [facility] BASIC METABOLIC PANEL 2022 09:54:00 Robert Bean [facility] MAGNESIUM 2022 09:54:00 Robert Bean [facility] PHOSPHORUS 2022 09:54:00 Robert Bean [facility] CBC W/PLT COUNT & AUTO 2022 09:54:00 Robert Bean [facility] FUNGUS CULTURE + SMEAR 2022-02-07 14:34:00 Lissette [facility] SURGICALLY OBTAINED CULTURE 2022-02-07 14:34:00 [facility] + GRAM STAIN [facility] ANAEROBIC CULTURE 2022-02-07 14:34:00 Lissette [facility] AFB CULTURE + SMEAR 2022-02-07 14:34:[address] [facility] (NON-SPUTUM) [facility] SPIN/CONCENTRATION CHARGE 2022-02-07 14:34:00 Lissette [facility] ANESTHESIA PERIPHERAL BLOCK 2022-02-07 13:15:39 Hallie [facility] pher [facility] ANESTHESIA PERIPHERAL BLOCK 2022-02-07 13:13:20 Hallie Jakob pher [facility] LAPAROTOMY, EXPLORATORY 2022-02-07 12:47:00 Lissette [facility] BASIC METABOLIC PANEL 2022-02-07 03:34:00 Orly [facility] MAGNESIUM 2022-02-07 03:34:00 Orly [facility] PHOSPHORUS 2022-02-07 03:34:00 Orly [facility] CBC W/PLT COUNT & AUTO 2022-02-07 03:34:00 Orly [facility] PROTHROMBIN TIME/INR 2022-02-07 03:34:00 Shama Rosenthal [facility] CBC W/PLT COUNT & AUTO 2022-02-07 03:34:00 Shama Rosenthal [facility] SARS-COV2/RT-PCR (HS & REF 2022-02-06 20:08:00 Eugene Landry [facility] [place] TYPE AND SCREEN, AUTOMATED 2022-02-06 20:08:00 Gonzalo Landry [facility] XR CHEST 1 VIEW PORTABLE / 2022-02-06 18:34:[address] [facility] CT ABDOMEN/PELVIS WITH IV 2022-02-05 11:11:00 Lexx Mahan [facility] CBC W/PLT COUNT & AUTO 2022-02-05 04:05:00 Shama Rosenthal [facility] BASIC METABOLIC PANEL 2022-02-05 04:05:00 Shama Rosenthal [facility] MAGNESIUM 2022-02-05 04:05:00 Shama Rosenthal [facility] PHOSPHORUS 2022-02-05 04:05:00 Shama Rosenthal [facility] CBC W/PLT COUNT & AUTO 2022-02-05 04:05:00 Shama Rosenthal [facility] POCT-GLUCOSE METER 2022-02-03 07:24:00 Shama Rosenthal [facility] CBC W/PLT COUNT & AUTO 2022-02-03 04:22:00 Gonzalo Landry [facility] BASIC METABOLIC PANEL 2022-02-03 04:22:00 Gonzalo Landry [facility] PHOSPHORUS 2022-02-03 04:22:[address] [facility] CBC W/PLT COUNT & AUTO 2022-02-03 04:22:00 Gonzalo Landry [facility] POCT-GLUCOSE METER 2022-02-02 18:06:00 Shama Rosenthal [facility] REPORT OF PROCEDURE - 2022-02-02 12:46:22 Shawn Lamar [facility] ENDOSCOPY [facility] [place] FLUORO NON-SPECIFIC UP TO 2022-02-02 12:15:00 Shawn Lamar [facility] 1 [facility] ESOPHAGOSCOPY, WITH 2022-02-02 11:27:[address] [facility] ENDOSCOPIC ULTRASOUND Medical Ce nter PROCEDURE W/ C-ARM 2022-02-02 11:27:00 Shawn Lamar [facility] CBC W/PLT COUNT & AUTO 2022-02-02 04:41:00 Gonzalo Landry [facility] BASIC METABOLIC PANEL 2022-02-02 04:41:00 Gonzalo Landry [facility] PHOSPHORUS 2022-02-02 04:41:[address] [facility] PROTHROMBIN TIME/INR 2022-02-02 04:41:00 Shama Rosenthal [facility] CBC W/PLT COUNT & AUTO 2022-02-02 04:41:00 Gonzalo Landry [facility] SARS-COV2/RT-PCR ([facility] & REF 2022-02-01 08:33:00 MarcbindiDemetris [facility] LABS) [facility] CBC W/PLT COUNT & AUTO 2022-02-01 05:24:00 Gonzalo Landry [facility] BASIC METABOLIC PANEL 2022-02-01 05:24:00 Gonzalo Landry [facility] PHOSPHORUS 2022-02-01 05:24:[address] [facility] PROTHROMBIN TIME/INR 2022-02-01 05:24:00 Shama Rosenthal [facility] CBC W/PLT COUNT & AUTO 2022-02-01 05:24:00 Gonzalo Landry [facility] CBC W/PLT COUNT & AUTO 2022-01-31 05:51:00 Gonzalo Landry [facility] BASIC METABOLIC PANEL 2022-01-31 05:51:00 Gonzalo Landry [facility] PHOSPHORUS 2022-01-31 05:51:[address] [facility] CBC W/PLT COUNT & AUTO 2022-01-31 05:51:00 Gonzalo Landry [facility] CT ABDOMEN/PELVIS WITH IV 2022-01-30 20:16:00 Lexx Mahan [facility] CBC W/PLT COUNT & AUTO 2022-01-30 06:07:00 [facility] BASIC MET[facility]OLIC PANEL 2022-01-30 06:07:00 Frantz Sánchez [facility] PHOSPHORUS 2022-01-30 06:07:[address] [facility] CBC W/PLT COUNT & AUTO 2022-01-30 06:07:00 Gonzalo Landry [facility] CBC W/PLT COUNT & AUTO 2022-01-29 04:24:[address] [facility] BASIC METABOLIC PANEL 2022-01-29 04:24:00 [facility] PHOSPHORUS 2022-01-29 04:24:00 Deshawn [facility] CBC W/PLT COUNT & AUTO 2022-01-29 04:24:00 Deshawn [facility] CBC W/PLT COUNT & AUTO 2022-01-28 14:51:00 Perico Chester [facility] BASIC METABOLIC PANEL 2022-01-28 14:51:00 [facility] PHOSPHORUS 2022-01-28 14:51:00 Deshawn [facility] CBC W/PLT COUNT & AUTO 2022-01-28 14:51:00 Perico Chester [facility] COMPREHENSIVE METABOLIC 2022-01-27 05:23:00 Nalam, Nilsa Gladys I [facility] MAGNESIUM 2022-01-27 05:23:00 Nalam, Nilsa Gladys [facility] CBC W/PLT COUNT & AUTO 2022-01-27 05:23:00 Nalam, Nilsa Gladys [facility] PHOSPHORUS 2022-01-27 05:23:[address] [facility] CBC W/PLT COUNT & AUTO 2022-01-27 05:23:00 Nal Nilsayoly Graham [facility] SARS-COV2/RT-PCR (HS & REF 2022-01-26 19:44:00 OrlyiKalei [facility] LABS) [facility] XR KNEE 3 VIEWS LEFT 2022-01-26 12:47:00 Keron Hess [facility] COMPLEMENT COMPONENT C4 2022-01-26 04:38:00 Nilsa Rios Gladys [facility] DOUBLE-STRANDED DNA (DSDNA) 2022-01-26 04:38:00 Nilsa Rios Lat a [facility] COMPREHENSIVE METABOLIC 2022-01-26 04:38:00 Nilsa Rios Gladys [facility] MAGNESIUM 2022-01-26 04:38:00 Gabriel Nilsa Gladys [facility] CBC W/PLT COUNT & AUTO 2022-01-26 04:38:00 Nilsa Rios Gladys [facility] PHOSPHORUS 2022-01-26 04:38:[address] [facility] HEMOGLOBIN A1C 2022-01-26 04:38:00 Gabriel, Nilsa Gladys [facility] ANTI-DNA TITER 2022-01-26 04:38:00 [facility] Nilsa Gladys [facility] CBC W/PLT COUNT & AUTO 2022-01-26 04:38:00 Gabriel [facility] URINALYSIS W/ MICROSCOPIC 2022-01-25 22:19:00 [facility] PROTHROMBIN TIME/INR 2022-01-25 10:28:00 Jasiel Nilsa Gladys [facility] CBC W/PLT COUNT & AUTO 2022-01-25 06:40:00 Gricelda Arteaga [facility] BASIC METABOLIC PANEL 2022-01-25 06:40:00 Gricelda Arteaga [facility] PT/APTT 2022-01-25 06:40:00 Gricelda Arteaga [facility] LACTIC ACID, VENOUS 2022-01-25 06:40:00 Gricelda Arteaga [facility] HEPATIC FUNCTION PANEL 2022-01-25 06:40:00 Jasiel, [facility] MAGNESIUM 2022-01-25 06:40:00 [facility] PHOSPHORUS 2022-01-25 06:40:00 [facility] TYPE AND SCREEN, AUTOMATED 2022-01-25 06:40:00 Gricelda Arteaga [facility] CBC W/PLT COUNT & AUTO 2022-01-25 06:40:00 Gricelda Arteaga [facility] EKG-SCANNED 2022-01-25 00:00:00 Jonelle Espinal [facility] BASIC METABOLIC PANEL () 2021-12-25 04:08:00 [facility] CBC W/PLT COUNT & AUTO 2021-12-25 04:08:[address] [facility] CBC W/PLT COUNT & AUTO 2021-12-25 04:08:[address]án[address] [facility] SARS-COV2/RT-PCR ([facility] & REF 2021-12-24 16:21:00 [facility] BASIC METABOLIC PANEL () 2021-12-24 03:16:00 [facility] CBC W/PLT COUNT & AUTO 2021-12-24 03:16:[address]án[address] [facility] CBC W/PLT COUNT & AUTO 2021-12-24 03:16:[address] [facility] BASIC METABOLIC PANEL (7) 2021-12-23 03:08:00 Marc [facility] CBC W/PLT COUNT & AUTO 2021-12-23 03:08:[address] [facility] CBC W/PLT COUNT & AUTO 2021-12-23 03:08:[address] [facility] BASIC METABOLIC PANEL (7) 2021-12-22 03:56[facility]O 2021-12-22 03:56:[address] [facility] COMPLEMENT COMPONENT C4 2021-12-22 03:56:00 RobbyJuan Luisjennifer Guerrero [facility] CBC W/PLT COUNT & AUTO 2021-12-22 03:56:[address] [facility] BASIC METABOLIC PANEL (7) 2021-12-21 05:21:00 [facility] CBC W/PLT COUNT & AUTO 2021-12-21 05:21:00 Alex Hernández C [facility] CBC W/PLT COUNT & AUTO 2021-12-21 05:21:00 Alex Hernández C [facility] CT ABDOMEN/PELVIS WITH IV 2021-12-20 06:25:[address] [facility] CONTRAST [facility] BASIC METABOLIC PANEL () 2021-12-20 04:59:00 Ari [facility] MAGNESIUM 2021-12-20 04:59:00 [facility] CBC W/PLT COUNT & AUTO 2021-12-20 04:59:00 Alex Hernández C [facility] CBC W/PLT COUNT & AUTO 2021-12-20 04:59:00 Alex Hernández Post C [facility] BASIC METABOLIC PANEL (7) 2021-12-19 04:42:00 Ari Miker [facility] MAGNESIUM 2021-12-19 04:42:00 Ari, [facility] CBC W/PLT COUNT & AUTO 2021-12-19 04:42:[address] [facility] CBC W/PLT COUNT & AUTO 2021-12-19 04:42:[address] [facility] BASIC METABOLIC PANEL (7) 2021-12-18 04:10:00 Ari, [facility] MAGNESIUM 2021-12-18 04:10:00 Ari, [facility] CBC W/PLT COUNT & AUTO 2021-12-18 04:10:[address] [facility] CBC W/PLT COUNT & AUTO 2021-12-18 04:10:[address] [facility] SARS-COV2/RT-PCR ([facility] & REF 2021-12-17 13:09:00 [facility] BASIC METABOLIC PANEL (7) 2021-12-17 05:40:00 Ari [facility] MAGNESIUM 2021-12-17 05:40:00 [facility] CBC W/PLT COUNT & AUTO 2021-12-17 05:40:[address] [facility] CREATINE KINASE (CK) 2021-12-17 05:40:00 Edgar [facility] CBC W/PLT COUNT & AUTO 2021-12-17 05:40:[address] [facility] BASIC METABOLIC PANEL (7) 2021-12-16 04:54[facility] 2021-12-16 04:54:00 [facility] HEPATIC FUNCTION PANEL 2021-12-16 04:54:00 Alex Hernández [facility] CBC W/PLT COUNT & AUTO 2021-12-16 04:54:00 Alex Hernández [facility] CBC W/PLT COUNT & AUTO 2021-12-16 04:54:[address] [facility] MAGNESIUM 2021-12-15 12:00:00 [facility] BASIC METABOLIC PANEL (7) 2021-12-15 12:00:00 [facility] CBC (HEMOGRAM ONLY) 2021-12-15 12:00:00 [facility] XR CHEST 1 VIEW PORTABLE / 2021-12-15 10:17:00 Suhail Man [facility] MAGNESIUM 2021-12-15 05:49:[address] [facility] CT ABDOMEN/PELVIS WITH IV 2021-12-14 10:05:00 Cheryl Martinez [facility] CBC W/PLT COUNT & AUTO 2021-12-14 05:39:00 [facility] CBC W/PLT COUNT & AUTO 2021-12-14 05:39:00 [facility] POCT-GLUCOSE METER 2021-12-13 07:29:00 Shala Suhail [facility] BASIC METABOLIC PANEL (7) 2021-12-13 07:06:00 [facility] MAGNESIUM 2021-12-13 07:06:00 [facility] WOUND CULTURE + GRAM STAIN 2021-12-12 18:11:00 [facility] CBC W/PLT COUNT & AUTO 2021-12-12 06:12:00 [facility] BASIC METABOLIC PANEL (7) 2021-12-12 06:12:00 [facility] MAGNESIUM 2021-12-12 06:12:00 [facility] CBC W/PLT COUNT & AUTO 2021-12-12 06:12:[address] [facility] [address] DRAINAGE W CATH PLACEMENT 2021-12-11 18:10:00 [facility] BASIC METABOLIC PANEL (7) 2021-12-11 05:56:00 [facility] MAGNESIUM 2021-12-11 05:56:[address] [facility] [address] ABDOMEN/PELVIS WITH IV 2021-12-10 13:21:00 Cheryl Martinez [facility] SARS-COV2/RT-PCR (HS & REF 2021-12-10 12:34:00 [facility] CBC W/PLT COUNT & AUTO 2021-12-10 05:35:00 [facility] BASIC METABOLIC PANEL (7) 2021-12-10 05:35:00 [facility] MAGNESIUM 2021-12-10 05:35:00 [facility] CBC W/PLT COUNT & AUTO 2021-12-10 05:35:00 [facility] MISCELLANEOUS LAB ORDER 2021-12-09 17:08:00 Kimberley Simon [facility] BASIC METABOLIC PANEL (7) 2021-12-09 04:11:00 [facility] MAGNESIUM 2021-12-09 04:11:00 [facility] DOUBLE-STRANDED DNA (DSDNA) 2021-12-09 04:11:00 [facility] COMPLEMENT COMPONENT C4 2021-12-09 04:11:00 [facility] PROTHROMBIN TIME/INR 2021-12-09 04:11:00 [facility] ANTI-DNA TITER 2021-12-09 04:11:00 [facility] URINALYSIS W/ MICROSCOPIC 2021-12-08 22:19:00 [facility] PROTEIN, RANDOM URINE 2021-12-08 22:18:00 [facility] CREATININE, RANDOM URINE 2021-12-08 22:18:00 Robby, Mona Vaid [facility] POCT-GLUCOSE METER 2021-12-08 10:20:00 [facility] BASIC METABOLIC PANEL (7) 2021-12-08 05:32:00 Bethany Durham [facility] HEPATIC FUNCTION PANEL 2021-12-08 05:32:00 Bethany Durham [facility] LIPID PANEL 2021-12-08 05:32:00 Bethany Durham [facility] MAGNESIUM 2021-12-08 05:32:00 Bethany Durham [facility] PHOSPHORUS 2021-12-08 05:32:00 Aria [facility] W/PLT COUNT & AUTO 2021-12-08 05:32:00 Marva [facility] HEMO[facility]IN A1C 2021-12-08 05:32:00 Aria Dur[facility]olson [facility] CBC W/PLT COUNT & AUTO 2021-12-08 05:32:00 Marva Carinefelipedionte [facility] BLOOD CULTURE 2021-12-07 14:13:00 Laith [facility] POCT-GLUCOSE METER 2021-12-07 13:44:00 Laith [facility] CBC W/PLT COUNT & AUTO 2021-12-07 13:39:00 Laith [facility] LACTIC ACID, VENOUS 2021-12-07 13:39:00 Laith [facility] COMPREHENSIVE METABOLIC 2021-12-07 13:39:00 [facility]/INR 2021-12-07 13:39:00 [facility] 2021-12-07 13:39:00 Laith [facility] LIPASE 2021-12-07 13:39:00 Laith [facility] CBC W/PLT COUNT & AUTO 2021-12-07 13:39:00 [facility] BUN/CREATININE RATIO W/EGFR 2021-10-19 13:53:50 [facility] POCT-GLUCOSE METER 2021-10-10 11:51:00 Arabella amy [facility] POCT-GLUCOSE METER 2021-10-10 07:14:00 Arabella amy [facility] BASIC METABOLIC PANEL (7) 2021-10-10 05:42:00 Reese Ma [facility] HEPATIC FUNCTION PANEL 2021-10-10 05:42:00 Martine Ma [facility] MAGNESIUM 2021-10-10 05:42:00 Martine Ma [facility] PHOSPHORUS 2021-10-10 05:42:00 Martine Ma [facility] CBC W/PLT COUNT & AUTO 2021-10-10 05:42:00 Suhail Man [facility] CBC W/PLT COUNT & AUTO 2021-10-10 05:42:00 Suhail Man [facility] POCT-GLUCOSE METER 2021-10-09 21:53:00 Kaitlyn Manjagdeepashvin [facility] POCT-GLUCOSE METER 2021-10-09 16:39:00 Kaitlyn Mankabetogamaashvin [facility] POCT-GLUCOSE METER 2021-10-09 11:35:00 Kaitlyn Manjagdeepashvin [facility] BASIC METABOLIC PANEL (7) 2021-10-09 11:05:00 Reese Ma [facility] HEPATIC FUNCTION PANEL 2021-10-09 11:05:00 Martine Ma [facility] MAGNESIUM 2021-10-09 11:05:00 Martine Ma [facility] PHOSPHORUS 2021-10-09 11:05:00 Martine Ma [facility] CBC W/PLT COUNT & AUTO 2021-10-09 11:05:00 Suhail Man [facility] DIFFERENTIAL [facility] CBC W/PLT COUNT & AUTO 2021-10-09 11:05:00 [facility] POCT-GLUCOSE METER 2021-10-09 09:25:00 Su[facility]ail [facility] POCT-GLUCOSE METER 2021-10-08 20:30:00 AthreyaSuhail [facility] SARS-COV2/RT-PCR ([facility] & REF 2021-10-08 19:22:00 Martine Ma [facility] POCT-GLUCOSE METER 2021-10-08 17:32:00 [facility] POCT-GLUCOSE METER 2021-10-08 11:58:00 [facility] administration[facility] POCT-GLUCOSE METER 2021-10-08 08:40:[address] [facility] BASIC METABOLIC PANEL (7) 2021-10-08 04:39:00 Reese Ma [facility] HEPATIC FUNCTION PANEL 2021-10-08 04:39:00 Martine Ma [facility] MAGNESIUM 2021-10-08 04:39:00 Martine Ma [facility] PHOSPHORUS 2021-10-08 04:39:00 Martine Ma [facility] CBC W/PLT COUNT & AUTO 2021-10-08 04:39:00 [facility] DIFFERENTIAL [facility] CBC W/PLT COUNT & AUTO 2021-10-08 04:39:00 [facility] POCT-GLUCOSE METER 2021-10-07 21:29:00 Laurencemomo Suhail [facility] POCT-GLUCOSE METER 2021-10-07 16:23[facility]00 [facility] POCT-GLUCOSE METER 2021-10-07 10:54:00 [facility] POCT-GLUCOSE METER 2021-10-07 07:37:00 [facility] BASIC METABOLIC PANEL (7) 2021-10-07 04:03:00 Reese Ma [facility] HEPATIC FUNCTION PANEL 2021-10-07 04:03:00 Martine Ma [facility] MAGNESIUM 2021-10-07 04:03:00 Martine Ma [facility] PHOSPHORUS 2021-10-07 04:03:00 Martine Ma [facility] POCT-GLUCOSE METER 2021-10-06 21:21:00 Suhail Man [facility] POCT-GLUCOSE METER 2021-10-06 16:37:00 AthmomoSuhail [facility] POCT-GLUCOSE METER 2021-10-06 12:35:00 Arabella [facility] BASIC METABOLIC PANEL (7) 2021-10-06 05:03:00 Reese Ma [facility] HEPATIC FUNCTION PANEL 2021-10-06 05:03:00 Martine Ma [facility] MAGNESIUM 2021-10-06 05:03:00 Martine Ma [facility] PHOSPHORUS 2021-10-06 05:03:00 Martine Ma [facility] CBC W/PLT COUNT & AUTO 2021-10-06 05:03:00 Rebecca [facility] DIFFERENTIAL [facility] CBC W/PLT COUNT & AUTO 2021-10-06 05:03:00 [facility] POCT-GLUCOSE METER 2021-10-05 21:08:00 Suhail Man [facility] POCT-GLUCOSE METER 2021-10-05 16:19:00 Suhail Man [facility] POCT-GLUCOSE METER 2021-10-05 11:23:00 Shala [facility] POCT-GLUCOSE METER 2021-10-05 07:50:00 Suhail Man [facility] MAGNESIUM 2021-10-05 06:03:00 Martine Ma [facility] PHOSPHORUS 2021-10-05 06:03:00 Martine Ma [facility] CBC W/PLT COUNT & AUTO 2021-10-05 06:03:00 [facility] CBC W/PLT COUNT & AUTO 2021-10-05 06:03:00 [facility] BASIC METABOLIC PANEL (7) 2021-10-05 06:03:00 Reese Ma [facility] HEPATIC FUNCTION PANEL 2021-10-05 06:03:00 Martine Ma [facility] SARS-COV2/RT-PCR ([facility] & REF 2021-10-05 05:55:00 Martine Ma [facility] POCT-GLUCOSE METER 2021-10-04 21:11:00 [facility] POCT-GLUCOSE METER 2021-10-04 17:22:00 [facility] POCT-GLUCOSE METER 2021-10-04 11:19:00 [facility] CBC W/PLT COUNT & AUTO 2021-10-04 05:54:00 [facility] BASIC METABOLIC PANEL (7) 2021-10-04 05:54:00 Reese Ma [facility] HEPATIC FUNCTION PANEL 2021-10-04 05:54:00 Martine Ma [facility] MAGNESIUM 2021-10-04 05:54:00 Martine Ma [facility] PHOSPHORUS 2021-10-04 05:54:00 Martine Ma [facility] CBC W/PLT COUNT & AUTO 2021-10-04 05:54:00 [facility] Kathy [facility] POCT-GLUCOSE METER 2021-10-03 16:36:00 [facility] POCT-GLUCOSE METER 2021-10-03 11:34:00 Bartsch, [facility] POCT-GLUCOSE METER 2021-10-03 04:57:00 [facility] BASIC METABOLIC PANEL (7) 2021-10-03 04:52:00 Reese Ma [facility] HEPATIC FUNCTION PANEL 2021-10-03 04:52:00 Martine Ma [facility] MAGNESIUM 2021-10-03 04:52:00 Martine Ma [facility] CBC (HEMOGRAM ONLY) 2021-10-03 04:52:00 Carmen Knapp [facility] PHOSPHORUS 2021-10-03 04:52:00 AlexGilles [facility] BASIC METABOLIC PANEL (7) 2021-10-02 20:40:00 Triny Leary [facility] CBC (HEMOGRAM ONLY) 2021-10-02 20:40:00 Triny Leary [facility] MAGNESIUM 2021-10-02 20:40:00 Triny Leary [facility] PHOSPHORUS 2021-10-02 20:40:00 Triny Leary [facility] POCT-GLUCOSE METER 2021-10-02 19:37:00 [facility] RRL CRITICAL LABS 2021-10-02 17:55:12 Lissette, [facility] (ABG,NA,K,H&H,GLUCOSE) Medical C enter CALCIUM, IONIZED 2021-10-02 17:55:12 [facility] BLOOD GAS, ARTERIAL 2021-10-02 17:55:12 Lissette, [facility] SODIUM NA-STAT LAB 2021-10-02 17:55:12 [facility] POTASSIUM-STAT LAB 2021-10-02 17:55:12 [facility] GLUCOSE-STAT LAB 2021-10-02 17:55:12 [facility] HGB/HCT (H&H) - STAT LAB 2021-10-02 17:55:12 [facility] FUNGUS CULTURE + SMEAR 2021-10-02 17:47:00 [facility] S t [facility] SURGICALLY OBTAINED CULTURE 2021-10-02 17:47:00 [facility] + GRAM STAIN [facility] ANAEROBIC CULTURE 2021-10-02 17:47:00 [facility] AFB CULTURE + SMEAR 2021-10-02 17:47:00 [facility] (NON-SPUTUM) [facility] WASHOUT, ABDOMINAL CAVITY 2021-10-02 16:47:00 [facility] POCT-GLUCOSE METER 2021-10-02 15:51:00 [facility] VANCOMYCIN LEVEL, TROUGH 2021-10-02 13:39:00 Charmaine Contreras [facility] POCT-GLUCOSE METER 2021-10-02 10:50:00 [facility] POCT-GLUCOSE METER 2021-10-02 07:17:00 [facility] BASIC METABOLIC PANEL (7) 2021-10-02 05:48:00 Reese Ma [facility] HEPATIC FUNCTION PANEL 2021-10-02 05:48:00 Martine Ma [facility] MAGNESIUM 2021-10-02 05:48:00 Martine Ma [facility] CBC (HEMOGRAM ONLY) 2021-10-02 05:48:00 Carmen Knapp [facility] PHOSPHORUS 2021-10-02 05:48:00 Martine Ma [facility] POCT-GLUCOSE METER 2021-10-01 21:35[facility]00 [facility]SE [facility] 2021-10-01 16:42:00 [facility] SARS-COV2/RT-PCR ([facility] & REF 2021-10-01 14:49:00 Martine Ma [facility] LABS) [facility] TYPE AND SCREEN, AUTOMATED 2021-10-01 14:48:00 Matty Lacy [facility] POCT-GLUCOSE METER 2021-10-01 12:11:00 [facility] 2D ECHO W/ DOPPLER 2021-10-01 09:32:46 [facility] (CW/PW/COLOR) [facility] CT ABD/PELVIS - PANCREAS 2021-10-01 07:54:00 Matty Lacy [facility] BASIC METABOLIC PANEL (7) 2021-10-01 04:54:00 Reese Ma [facility] HEPATIC FUNCTION PANEL 2021-10-01 04:54:00 Martine Ma [facility] MAGNESIUM 2021-10-01 04:54:00 Martine Ma [facility] CBC (HEMOGRAM ONLY) 2021-10-01 04:54:00 Carmen Knapp [facility] PHOSPHORUS 2021-10-01 04:54:00 Francesca [facility] PREPARE LEUKO-REDUCED RBC 2021-09-30 23:54:00 Carmen Knapp [facility] POCT-GLUCOSE METER 2021-09-30 22:32:00 [facility] BLOOD CULTURE 2021-09-30 20:24:00 [facility] BLOOD CULTURE 2021-09-30 20:23:00 [facility] POCT-GLUCOSE METER 2021-09-30 17:01:00 [facility] POCT-GLUCOSE METER 2021-09-30 11:33:00 [facility] POCT-GLUCOSE METER 2021-09-30 07:38:00 [facility] DOUBLE-STRANDED DNA (DSDNA) 2021-09-30 05:18:00 [facility] ANTIBODY [facility] ANTI-DNA TITER 2021-09-30 05:18:00 [facility] COMPLEMENT COMPONENT C3 2021-09-30 01:32:00 [facility] VANCOMYCIN LEVEL, TROUGH 2021-09-30 01:31:00 Alex Hernández [facility] BASIC METABOLIC PANEL (7) 2021-09-30 01:31:00 [facility] 2021-09-30 01:31:00 Martine Ma [facility] MAGNESIUM 2021-09-30 01:31:00 Martine Ma [facility] CBC (HEMOGRAM ONLY) 2021-09-30 01:31:00 Ra [facility] PHOSPHORUS 2021-09-30 01:31:00 [facility]PARE LEUKO-REDUCED RBC 2021-09-29 23:54:00 Cy Correia [facility] POCT-GLUCOSE METER 2021-09-29 20:44:00 [facility] PROTEIN, RANDOM URINE 2021-09-29 17:45:00 [facility] CREATININE, RANDOM URINE 2021-09-29 17:45:00 Kathy Fernandez CH I [facility] URINALYSIS W/ MICROSCOPIC 2021-09-29 17:45:00 Kathy Fernandez [facility] TRANSFUSE LEUKO-REDUCED RED 2021-09-29 16:31:00 Ra [facility] TRANSFUSE LEUKO-REDUCED RED 2021-09-29 12:26:00 Ra [facility] POCT-GLUCOSE METER 2021-09-29 08:03:00 [facility] BASIC METABOLIC PANEL (7) 2021-09-29 05:09:00 Reese Ma [facility] HEPATIC FUNCTION PANEL 2021-09-29 05:09:00 Martine Ma [facility] MAGNESIUM 2021-09-29 05:09:00 [facility] CBC (HEMOGRAM ONLY) 2021-09-29 05:09:00 Carmen Knapp [facility] PHOSPHORUS 2021-09-29 05:09:00 [facility] PROTHROMBIN TIME/INR 2021-09-29 05:09:00 [facility] POCT-GLUCOSE METER 2021-09-28 20:39:00 [facility] ECG 12-LEAD 2021-09-28 18:40:16 Unknown, [facility] ECG 12-LEAD 2021-09-28 18:40:16 Unknown, [facility] ECG 12-LEAD 2021-09-28 18:40:16 Unknown, [facility] XR CHEST 1 VIEW PORTABLE / 2021-09-28 18:22:00 Carmen Knapp [facility] HEMOGLOBIN AND HEMATOCRIT 2021-09-28 17:38:00 Kahty Fernandez [facility] CT DRAINAGE ABDOMINAL 2021-09-28 16:51:00 [facility] AMYLASE, BODY FLUID 2021-09-28 16:35:00 [facility] BODY FLUID CULTURE + GRAM 2021-09-28 16:34:[address] [facility] [facility] ANAEROBIC CULTURE 2021-09-28 16:34:00 [facility] AMYLASE 2021-09-28 12:17:00 [facility] POCT-GLUCOSE METER 2021-09-28 12:09:00 [facility] TRANSFUSE LEUKO-REDUCED RED 2021-09-28 08:37:00 [facility] BLOOD CELLS [facility] POCT-GLUCOSE METER 2021-09-28 07:47:00 Kathy Fernandez [facility] ABORH, MANUAL 2021-09-28 07:34:00 Josseline Cantu [facility] TYPE AND SCREEN, AUTOMATED 2021-09-28 06:10:00 [facility] CBC W/PLT COUNT & AUTO 2021-09-28 03:59:00 [facility] (CELLAVISION MANUAL DIFF) 2021-09-28 03:59:00 [facility] BASIC METABOLIC PANEL (7) 2021-09-28 03:59:00 [facility] HEPATIC FUNCTION PANEL 2021-09-28 03:59:00 [facility] PROTHROMBIN TIME/INR 2021-09-28 03:59:00 [facility] MAGNESIUM 2021-09-28 03:59:00 [facility] PHOSPHORUS 2021-09-28 03:59:00 [facility] CBC W/PLT COUNT & AUTO 2021-09-28 03:59:00 [facility] LACTIC ACID, VENOUS 2021-09-28 03:59:00 [facility] SARS-COV2/RT-PCR ([facility] & REF 2021-09-28 02:17:00 Martine Ma [facility] LABS) [facility] CT ABDOMEN/PELVIS WITH IV 2021-09-27 23:04:00 Kimmy Nunn [facility] CBC W/PLT COUNT & AUTO 2021-09-27 21:35:00 Kimmy Nunn [facility] (CELLAVISION MANUAL DIFF) 2021-09-27 21:35:00 Harring, [facility] BLOOD CULTURE 2021-09-27 21:35:00 Edouard [facility] BLOOD CULTURE IDENTIFICATION 2021-09-27 21:35:[address] [facility] CBC W/PLT COUNT & AUTO 2021-09-27 21:35:00 Kimmy Nunn [facility] COMPREHENSIVE METABOLIC 2021-09-27 21:35:00 Kimmy Nunn [facility] LIPASE 2021-09-27 21:35:00 Edouard [facility] LACTIC ACID, VENOUS 2021-09-27 21:35:00 Edouard [facility] PROTHROMBIN TIME/INR 2021-09-27 21:35:00 Edouard [facility] XR CHEST 1 VIEW PORTABLE / 2021-09-27 20:27:00 Edouard [facility] CRITICAL CARE 2021-09-27 20:07:17 Edouard [facility] POCT-GLUCOSE METER 2021-09-22 16:25:00 Eli [facility] FECAL LEUKOCYTES 2021-09-22 14:35:[address] [facility] POCT-GLUCOSE METER 2021-09-22 11:27:00 Eli [facility] POCT-GLUCOSE METER 2021-09-22 07:31:00 Eli [facility] MAGNESIUM 2021-09-22 04:34:00 Nilam Mauro [facility] BASIC METABOLIC PANEL (7) 2021-09-22 04:34:00 Castillo Narayan [facility] POCT-GLUCOSE METER 2021-09-21 21:58:00 Eli [facility] POCT-GLUCOSE METER 2021-09-21 17:14:00 Eli [facility] POCT-GLUCOSE METER 2021-09-21 11:42:00 Eli, [facility] POCT-GLUCOSE METER 2021-09-21 07:36:00 Eli [facility] CBC W/PLT COUNT & AUTO 2021-09-21 04:27:00 Castillo Narayan [facility] S [facility] MAGNESIUM 2021-09-21 04:27:00 [facility] COMPREHENSIVE METABOLIC 2021-09-21 04:27:00 Castillo Narayan [facility] CBC W/PLT COUNT & AUTO 2021-09-21 04:27:00 Castillo Narayan [facility] S [facility] FERRITIN 2021-09-21 04:27:00 Rebecca [facility] POCT-GLUCOSE METER 2021-09-20 22:54:00 [facility] POCT-GLUCOSE METER 2021-09-20 15:43:00 [facility] POCT-GLUCOSE METER 2021-09-20 11:26[facility] PO[facility]UCOSE METER 2021-09-20 08:00:00 Rebecca Cuellar [facility] CBC W/PLT COUNT & AUTO 2021-09-20 03:44:[address] [facility] MAGNESIUM 2021-09-20 03:44:00 [facility] COMPREHENSIVE METABOLIC 2021-09-20 03:44:00 Castillo Narayan [facility] CBC W/PLT COUNT & AUTO 2021-09-20 03:44:00 Castillo Narayan [facility] S [facility] FERRITIN 2021-09-20 03:44:00 Rebecca [facility] POCT-GLUCOSE METER 2021-09-19 22:13:00 Rebecca Cuellar [facility] POCT-GLUCOSE METER 2021-09-19 17:40:00 Rebecca Cuellar [facility] MAGNESIUM 2021-09-19 15:24:00 Castillo Narayan [facility] POCT-GLUCOSE METER 2021-09-19 13:28:00 Rebecca Cuellar [facility] POCT-GLUCOSE METER 2021-09-19 08:10:00 Rebecca Cuellar [facility] CBC W/PLT COUNT & AUTO 2021-09-19 05:35:[address] [facility] SARS-COV2/RT-PCR (HS & REF 2021-09-19 05:35:00 Colette Gonzalez [facility] LABS) [facility] MAGNESIUM 2021-09-19 05:35:00 Nilam Mauro [facility] COMPREHENSIVE METABOLIC 2021-09-19 05:35:00 Castillo Narayan [facility] CBC W/PLT COUNT & AUTO 2021-09-19 05:35:[address] [facility] FERRITIN 2021-09-19 05:35:00 Rebecca [facility] POCT-GLUCOSE METER 2021-09-18 21:29:00 Rebecca Cuellar [facility] POCT-GLUCOSE METER 2021-09-18 16:56:00 Rebecca Cuellar [facility] POCT-GLUCOSE METER 2021-09-18 12:15:00 Rebecca Cuellar [facility] POCT-GLUCOSE METER 2021-09-18 08:35:00 Rebecca Cuellar [facility] CBC W/PLT COUNT & AUTO 2021-09-18 06:58:[address] [facility] MAGNESIUM 2021-09-18 06:58:00 Nilam Mauro [facility] COMPREHENSIVE METABOLIC 2021-09-18 06:58:00 Castillo Narayan [facility] CBC W/PLT COUNT & AUTO 2021-09-18 06:58:[address] [facility] POCT-GLUCOSE METER 2021-09-17 22:17:00 Rebecca Cuellar [facility] POCT-GLUCOSE METER 2021-09-17 17:06:00 Rebecca Cuellar [facility] POCT-GLUCOSE METER 2021-09-17 12:18:00 Rebecca Cuellar [facility] POCT-GLUCOSE METER 2021-09-17 07:52:00 Rebecca Cuellar [facility] CBC W/PLT COUNT & AUTO 2021-09-17 05:45:[address] [facility] MAGNESIUM 2021-09-17 05:45:00 Nilam Mauro [facility] FERRITIN 2021-09-17 05:45:00 Rose Lorenzo [facility] COMPREHENSIVE METABOLIC 2021-09-17 05:45:00 Castillo Narayan [facility] CBC W/PLT COUNT & AUTO 2021-09-17 05:45:[address] [facility] CMV PCR, QUANTITATIVE 2021-09-17 05:45:00 Charmaine Contreras [facility] GI PATHOGEN PROFILE BY PCR 2021-09-17 05:11:00 Viviana Contreras [facility] GIARDIA ANTIGEN 2021-09-17 05:05:00 Castillo Narayan [facility] OVA AND PARASITE EXAMINATION 2021-09-17 04:59:00 Castillo Narayan [facility] POCT-GLUCOSE METER 2021-09-16 22:07:00 Rose Lorenzo [facility] POCT-GLUCOSE METER 2021-09-16 17:29:00 Rose Lorenzo [facility] POCT-GLUCOSE METER 2021-09-16 11:35:00 Rose Lorenzo [facility] POCT-GLUCOSE METER 2021-09-16 07:52:00 Rose Lorenzo [facility] CBC W/PLT COUNT & AUTO 2021-09-16 06:50:[address] [facility] MAGNESIUM 2021-09-16 06:50:00 [facility] CBC W/PLT COUNT & AUTO 2021-09-16 06:50:[address] [facility] COMPREHENSIVE METABOLIC 2021-09-16 06:50:00 Rose Lorenzo [facility] FERRITIN 2021-09-16 06:50:00 Rose Lorenzo [facility] POCT-GLUCOSE METER 2021-09-15 21:28:00 Rose Lorenzo [facility] POCT-GLUCOSE METER 2021-09-15 17:17:00 Rose Lorenzo [facility] BASIC METABOLIC PANEL (7) 2021-09-15 16:38:00 Rose Lorenzo [facility] MAGNESIUM 2021-09-15 16:38:00 Rose Lorenzo [facility] VENOUS DOPPLER LEG, LEFT 2021-09-15 15:25:00 Rose Lorenzo [facility] C. DIFFICILE GDH TOXIN 2021-09-15 14:29:00 Rose Lorenzo [facility] POCT-GLUCOSE METER 2021-09-15 10:56:00 Rose Lorenzo [facility] POCT-GLUCOSE METER 2021-09-15 07:10:00 Rose Lorenzo [facility] CBC W/PLT COUNT & AUTO 2021-09-15 05:04:[address] [facility] MAGNESIUM 2021-09-15 05:04:00 Nilam Mauro [facility] CBC W/PLT COUNT & AUTO 2021-09-15 05:04:[address] [facility] COMPREHENSIVE METABOLIC 2021-09-15 05:04:00 Rose Lorenzo [facility] FERRITIN 2021-09-15 05:04:00 Rose Lorenzo [facility] POCT-GLUCOSE METER 2021-09-14 21:12:00 Rose Lorenzo [facility] POCT-GLUCOSE METER 2021-09-14 18:00:00 Rose Lorenzo [facility] FERRITIN 2021-09-14 14:00:00 Rose Lorenzo [facility] POCT-GLUCOSE METER 2021-09-14 12:40:00 Rose Lorenzo [facility] MAGNESIUM 2021-09-14 12:24:00 [facility] BASIC METABOLIC PANEL (7) 2021-09-14 12:24:00 Rose Lorenzo [facility] HEPATIC FUNCTION PANEL 2021-09-14 12:24:00 Rose Lorenzo [facility] POCT-GLUCOSE METER 2021-09-14 08:04:00 Rose Lorenzo [facility] POCT-GLUCOSE METER 2021-09-13 21:38:00 Rose Lorenzo [facility] POCT-GLUCOSE METER 2021-09-13 16:22:00 Rose Lorenzo [facility] POCT-GLUCOSE METER 2021-09-13 11:57:00 Rose Lorenzo [facility] POCT-GLUCOSE METER 2021-09-13 09:31:00 Rose Lorenzo [facility] CBC W/PLT COUNT & AUTO 2021-09-13 [facility] & AUTO 2021-09-13 04:11:00 [facility] COMPREHENSIVE METABOLIC 2021-09-13 04:11:00 [facility] MAGNESIUM 2021-09-13 04:11:00 [facility] PHOSPHORUS 2021-09-13 04:11:00 [facility] POCT-GLUCOSE METER 2021-09-12 21:08:00 Rose Lorenzo [facility] CBC W/PLT COUNT & AUTO 2021-09-12 17:30:00 [facility] CBC W/PLT COUNT & AUTO 2021-09-12 17:30:00 [facility] COMPREHENSIVE METABOLIC 2021-09-12 17:30:00 [facility] PANEL [facility] MAGNESIUM 2021-09-12 17:30:00 [facility] PHOSPHORUS 2021-09-12 17:30:00 [facility] HEMOGLOBIN A1C 2021-09-12 17:30:00 [facility] DOUBLE-STRANDED DNA (DSDNA) 2021-09-12 17:30:00 [facility] ANTIBODY [facility] COMPLEMENT COMPONENT C4 2021-09-12 17:30:00 [facility] FERRITIN 2021-09-12 17:30:00 Rose Lorenzo [facility] ANTI-DNA TITER 2021-09-12 17:30:00 [facility] POCT-GLUCOSE METER 2021-09-12 16:59:00 Rose Lorenzo [facility] POCT-GLUCOSE METER 2021-09-12 11:36:00 Rose Lorenzo [facility] XR HIP 2 VIEWS BILATERAL 2021-09-12 10:40:00 [facility] XR SHOULDER COMPLETE 2 VIEWS 2021-09-12 10:40:[address] [facility] RIGHT [facility] XR HAND 3 VIEWS RIGHT 2021-09-12 10:40:00 Rose Lorenzo I [facility] POCT-GLUCOSE METER 2021-09-12 07:29:00 Rose Lorenzo [facility] PROTEIN, RANDOM URINE 2021-09-12 05:46:00 [facility] CREATININE, RANDOM URINE 2021-09-12 05:46:00 [facility] POCT-GLUCOSE METER 2021-09-11 21:23:00 Rose Lorenzo [facility] POCT-GLUCOSE METER 2021-09-11 16:19:00 Rose Lorenzo [facility] POCT-GLUCOSE METER 2021-09-11 11:34:00 Rose Lorenzo [facility] CBC W/PLT COUNT & AUTO 2021-09-11 09:40[facility]LO[facility] 2021-09-11 09:40:00 Rose Lorenzo [facility] CBC W/PLT COUNT & AUTO 2021-09-11 09:40:00 [facility] COMPREHENSIVE METABOLIC 2021-09-11 09:40:00 [facility] MAGNESIUM 2021-09-11 09:40:00 [facility] PHOSPHORUS 2021-09-11 09:40:00 [facility] POCT-GLUCOSE METER 2021-09-11 07:18:00 Rose Lorenzo [facility] CT ABDOMEN/PELVIS WITH IV 2021-09-10 23:05:00 Rose Lorenzo [facility] POCT-GLUCOSE METER 2021-09-10 20:57:00 Rose Lorenzo [facility] BLOOD CULTURE 2021-09-10 10:38:00 Rose Lorenzo [facility] LACTIC ACID, VENOUS 2021-09-10 10:36:00 Rose Lorenzo [facility] PROTHROMBIN TIME/INR 2021-09-10 10:36:00 Rose Lorenzo [facility] APTT 2021-09-10 10:36:00 Rose Lorenzo [facility] PROCALCITONIN 2021-09-10 10:36:00 Rose Lorenzo [facility] XR CHEST 1 VIEW PORTABLE / 2021-09-10 09:14:[address] [facility] CBC W/PLT COUNT & AUTO 2021-09-10 05:05:00 [facility] (CELLAVISION MANUAL DIFF) 2021-09-10 05:05:00 [facility] CBC W/PLT COUNT & AUTO 2021-09-10 05:05:00 [facility] COMPREHENSIVE METABOLIC 2021-09-10 05:05:00 [facility] MAGNESIUM 2021-09-10 05:05:00 [facility] PHOSPHORUS 2021-09-10 05:05:00 [facility] POCT-GLUCOSE METER 2021-09-09 20:57:00 Rose Lorenzo [facility] POCT-GLUCOSE METER 2021-09-09 16:16:00 Rose Lorenzo [facility] COMPREHENSIVE METABOLIC 2021-09-09 14:55:00 [facility] POCT-GLUCOSE METER 2021-09-09 11:25:00 Rose Lorenzo [facility] 2D ECHO MODE W/O DOPPLER 2021-09-09 09:55:28 Babita Cano [facility] POCT-GLUCOSE METER 2021-09-09 06:44:00 Rose Lorenzo [facility] POCT-GLUCOSE METER 2021-09-08 21:08:00 Rose Lorenzo [facility] POCT-GLUCOSE METER 2021-09-08 19:41:00 Rose Lorenzo [facility] POCT-GLUCOSE METER 2021-09-08 11:25:00 Rose Lorenzo [facility] POCT-GLUCOSE METER 2021-09-08 09:10:00 Rose Lorenzo [facility] POCT-GLUCOSE METER 2021-09-08 05:04:00 [facility] CBC W/PLT COUNT & AUTO 2021-09-08 04:20:00 [facility] CBC W/PLT COUNT & AUTO 2021-09-08 04:20:00 [facility] COMPREHENSIVE METABOLIC 2021-09-08 04:20:00 [facility] MAGNESIUM 2021-09-08 04:20:00 Bar [facility] PHOSPHORUS 2021-09-08 04:20:00 [facility] POCT-GLUCOSE METER 2021-09-07 23:09:00 [facility] POCT-GLUCOSE METER 2021-09-07 18:43:00 [facility] HAPTOGLOBIN 2021-09-07 12:25:00 [facility] FIBRINOGEN 2021-09-07 12:25:00 [facility] VANCOMYCIN LEVEL, TROUGH 2021-09-07 12:25:00 David De La Vega [facility] HEMOGLOBIN AND HEMATOCRIT 2021-09-07 12:25:00 [facility] COMPREHENSIVE METABOLIC 2021-09-07 12:24:00 Yosvany [facility] MAGNESIUM 2021-09-07 12:24:00 Yosvany [facility] PHOSPHORUS 2021-09-07 12:24:00 Yosvany [facility] LIPASE 2021-09-07 12:24:00 [facility] PROCALCITONIN 2021-09-07 12:24:00 Seemallo, [facility] HEPATIC FUNCTION PANEL 2021-09-07 12:24:00 [facility] POCT-GLUCOSE METER 2021-09-07 12:01:00 Rose Lorenzo [facility] URINALYSIS W/ REFLEX URINE 2021-09-07 11:58:00 Abe Reed [facility] CBC W/PLT COUNT & AUTO 2021-09-07 05:29:00 Tiera Campoverde [facility] DIFFERENTIAL [facility] (CELLAVISION MANUAL DIFF) 2021-09-07 05:29:00 Kenroy Blake [facility] CBC W/PLT COUNT & AUTO 2021-09-07 05:29:00 Tiera Campoverde [facility] DIFFERENTIAL [facility] LACTIC ACID, VENOUS 2021-09-07 05:29:00 Tiera Campoverde [facility] B-TYPE NATRIURETIC FACTOR 2021-09-07 05:29:[address] [facility] (BNP) [facility] PERIPHERAL BLOOD SMEAR - 2021-09-07 05:29:00 Anaya Bar [facility] PATHOLOGIST REVIEW [facility] POCT-BLOOD GASES, ARTERIAL 2021-09-07 02:53:00 Shama Rosenthal [facility] POCT-SODIUM 2021-09-07 02:53:00 Shama Rosenthal [facility] POCT-POTASSIUM 2021-09-07 02:53:00 Shama Rosenthal [facility] POCT-HEMOGLOBIN 2021-09-07 02:53:00 Shama Rosenthal [facility] POCT-HEMATOCRIT 2021-09-07 02:53:00 Shama Rosenthal [facility] POCT-GLUCOSE 2021-09-07 02:53:00 Shama Rosenthal [facility] XR CHEST 1 VIEW PORTABLE / 2021-09-07 02:51:[address] [facility] ECG 12-LEAD 2021-09-07 01:42:00 [facility] 2021-09-07 01:42:00 Unknown, [facility] ECG 12-LEAD 2021-09-07 01:42:00 Unknown, [facility] ECG 12-LEAD 2021-09-07 01:37:32 Shama Rosenthal [facility] ECG 12-LEAD 2021-09-07 01:37:32 Unknown, [facility] ECG 12-LEAD 2021-09-07 01:37:32 Unknown, [facility] BASIC METABOLIC PANEL (7) 2021-09-07 01:05:00 Shaam Rosenthal [facility] MAGNESIUM 2021-09-07 01:05:00 Shama Rosenthal [facility] PHOSPHORUS 2021-09-07 01:05:00 Shama Rosenthal [facility] LACTATE DEHYDROGENASE (LDH) 2021-09-07 01:05:00 [facility] BILIR[facility], DIRECT 2021-09-07 01:05:00 [facility] POCT-[facility]UCOSE METER 2021-09-06 23:58:00 Shama Rosenthal [facility] POCT-GLUCOSE METER 2021-09-06 15:46:00 Shama Rosenthal [facility] MRSA SCREEN 2021-09-06 12:58:00 iNlam Mauro [facility] POCT-GLUCOSE METER 2021-09-06 12:53:00 Shama Rosenthal [facility] POCT-GLUCOSE METER 2021-09-06 07:29:00 Shama Roesnthal [facility] URINALYSIS W/ MICROSCOPIC 2021-09-06 05:28:00 Lynette Villagomez [facility] PROTEIN, RANDOM URINE 2021-09-06 05:28:00 [facility] CREATININE, RANDOM URINE 2021-09-06 05:28:00 [facility] COMPLEMENT COMPONENT C4 2021-09-06 05:14:00 [facility] VITAMIN D, 25-HYDROXY 2021-09-06 05:14:00 Shama Rosenthal [facility] TSH/FREE T4 IF INDICATED 2021-09-06 05:14:00 [facility] XR CHEST 1 VIEW PORTABLE / 2021-09-06 02:18:00 Kareem Calhoun [facility] BLOOD CULTURE 2021-09-06 02:06:00 Shama Rosenthal [facility] CBC W/PLT COUNT & AUTO 2021-09-06 02:01:00 Shama Rosenthal [facility] (CELLAVISION MANUAL DIFF) 2021-09-06 02:01:00 Shama Rosenthal [facility] BLOOD CULTURE 2021-09-06 02:01:00 Shama Rosenthal [facility] CBC W/PLT COUNT & AUTO 2021-09-06 02:01:00 Shama Rosenthal [facility] LACTIC ACID, VENOUS 2021-09-06 02:01:00 Shama Rosenthal [facility] PHOSPHORUS 2021-09-06 02:00:00 [facility] MAGNESIUM 2021-09-06 02:00:00 [facility] COMPREHENSIVE METABOLIC 2021-09-06 02:00:00 Shama Rosenthal [facility] SARS-COV2/RT-PCR (SLHS & REF 2021-09-06 01:54:00 Colette Gonzalez [facility] LABS) [facility] ECG 12-LEAD 2021-09-06 01:44:10 Shama Rosenthal [facility] POCT-GLUCOSE METER 2021-09-06 01:04:00 Shama Rosenthal [facility] BASIC METABOLIC PANEL (7) 2021-09-05 19:09:00 Shama Roesnthal [facility] MAGNESIUM 2021-09-05 19:09:00 Shama Rosenthal [facility] PHOSPHORUS 2021-09-05 19:09:00 Shama Rosenthal [facility] POCT-GLUCOSE METER 2021-09-05 19:00:00 Shama Rosenthal [facility] DOUBLE-STRANDED DNA (DSDNA) 2021-09-05 16:26:00 [facility] ANTIBODY [facility] FERRITIN 2021-09-05 16:26:00 [facility] ANTI-DNA TITER 2021-09-05 16:26:00 [facility] POCT-GLUCOSE METER 2021-09-05 12:11:00 [facility] PO[facility]SE METER 2021-09-05 06:34:00 [facility] COMPREHENSIVE METABOLIC 2021-09-05 04:46:00 [facility] CBC (HEMOGRAM ONLY) 2021-09-05 04:46:00 [facility] CALCIUM, IONIZED 2021-09-05 04:46:00 Jermain Ward [facility] BASIC METABOLIC PANEL (7) 2021-09-05 00:40:00 Shama Rosenthal [facility] MAGNESIUM 2021-09-05 00:40:00 Shama Rosenthal [facility] PHOSPHORUS 2021-09-05 00:40:00 Shama Rosenthal [facility] POCT-GLUCOSE METER 2021-09-04 23:48:00 Shama Rosenthal [facility] CT ABDOMEN/PELVIS WITH IV 2021-09-04 21:08:00 [facility] CHEST FOR PULMONARY 2021-09-04 21:08:00 Shama Rosenthal [facility] POCT-GLUCOSE METER 2021-09-04 18:12:00 Shama Rosenthal [facility] CALCIUM 2021-09-04 14:09:00 [facility] POCT-GLUCOSE METER 2021-09-04 13:06:00 [facility] 12-LEAD 2021-09-04 08:09:50 [facility] POCT-GLUCOSE METER 2021-09-04 06:04:00 Shama Rosenthal [facility] CBC W/PLT COUNT & AUTO 2021-09-04 04:12:00 Nj [facility] COMPREHENSIVE METABOLIC 2021-09-04 04:12:00 Nj [facility] MAGNESIUM 2021-09-04 04:12:00 N[facility] CBC W/PLT COUNT & AUTO 2021-09-04 04:12:00 [facility] URINE CULTURE 2021-09-04 00:21:00 [facility] URINALYSIS W/ REFLEX URINE 2021-09-04 00:21:00 Nj Nilam [facility] POCT-GLUCOSE METER 2021-09-04 00:14:00 Shama Rosenthal [facility] POCT-GLUCOSE METER 2021-09-03 17:51:00 [facility] CBC W/PLT COUNT & AUTO 2021-09-03 16:56:00 Shama Rosenthal [facility] COMPREHENSIVE METABOLIC 2021-09-03 16:56:00 [facility] W/PLT COUNT & AUTO 2021-09-03 16:56:00 [facility]UM 2021-09-03 16:56:00 N[facility] XR ABDOMEN / KUB 1 VIEW 2021-09-03 16:05:00 N[facility] XR CHEST 1 VIEW PORTABLE / 2021-09-03 16:02:00 Nilam Mauro [facility] XR ABDOMEN / KUB 1 VIEW 2021-09-03 12:50:00 Shama Rosenthal [facility] COMPREHENSIVE METABOLIC 2021-09-03 05:02:00 GabrielNilsa CH I [facility] PHOSPHORUS 2021-09-03 05:02:00 N[facility] POCT-GLUCOSE METER 2021-09-02 22:13:00 [facility] POCT-GLUCOSE METER 2021-09-02 18:48:00 [facility] CREATININE, RANDOM URINE 2021-09-02 04:39:00 Kaydenaltonclara [facility] PROTEIN, RANDOM URINE 2021-09-02 04:39:00 [facility] POCT-GLUCOSE METER 2021-09-01 23:16:00 Galo [facility] POCT-GLUCOSE METER 2021-09-01 18:08:00 Galo [facility] HIGH SENSITIVITY TROPONIN I 2021-09-01 16:25:00 Nj [facility] XR CHEST 1 VIEW PORTABLE / 2021-09-01 16:21:00 Nilam Mauro Kenroy [facility] ECG 12-LEAD 2021-09-01 15:41:33 Unknown, [facility] ECG 12-LEAD 2021-09-01 15:41:33 Unknown, [facility] CBC W/PLT COUNT & AUTO 2021-09-01 06:00:00 Kraig [facility] (CELLAVISION MANUAL DIFF) 2021-09-01 06:00:00 Xin [facility] COMPREHENSIVE METABOLIC 2021-09-01 06:00:00 Jasielam, Nilsa Gladys [facility] PROTHROMBIN TIME/INR 2021-09-01 06:00:00 Nj, [facility] PT/APTT 2021-09-01 06:00:00 [facility] CBC W/PLT COUNT & AUTO 2021-09-01 06:00:00 Ezequiel [facility] T SPOT TB 2021-09-01 06:00:00 Galo [facility] IMMUNOGLOBULIN A (IGA) 2021-09-01 06:00:00 Galo [facility] POCT-GLUCOSE METER 2021-08-31 21:49:00 Galo [facility] POCT-GLUCOSE METER 2021-08-31 17:13:00 Galo [facility] POCT-GLUCOSE METER 2021-08-31 13:28:00 Galo [facility] POCT-GLUCOSE METER 2021-08-31 08:41:00 Galo [facility] MISCELLANEOUS LAB ORDER 2021-08-31 06:22:00 [facility] 2021-08-31 05:16:00 Galo [facility] ANTI-DARRIN AB (RNA, LACY) 2021-08-31 05:14:00 [facility] CYCLIC CITRULLINATED PEPTIDE 2021-08-31 05:14:00 Renea Cornell [facility] AB, IGG [facility] CBC (HEMOGRAM ONLY) 2021-08-31 05:14:00 Nilsa Rios Gladys [facility] PROTHROMBIN TIME/INR 2021-08-31 05:14:00 Uklon, [facility] PT/APTT 2021-08-31 05:14:00 Nilam Mauro [facility] RETICULOCYTE COUNT 2021-08-31 05:14:00 Shama Rosenthal [facility] MISCELLANEOUS LAB ORDER 2021-08-31 05:13:00 Shama Rosenthal [facility] COMPLEMENT COMPONENT C4 2021-08-31 05:13:00 Shama Rosenthal [facility] FERRITIN 2021-08-31 05:13:00 Bhblayne, Jaja [facility] RHEUMATOID FACTOR AB, REFLEX 2021-08-31 05:13:00 Renea Cornell [facility] TO [facility] MAGNESIUM 2021-08-31 05:13:00 Mervin [facility] COMPREHENSIVE METABOLIC 2021-08-31 05:13:00 Nilsa Rios [facility] HC LAB HIV-1 AG W/HIV-1&2 AB 2021-08-31 05:13:00 Shama Rosenthal [facility] RPR 2021-08-31 05:13:00 Shama Rosenthal [facility] RHEUMATOID FACTOR TITER 2021-08-31 05:13:00 Arsenio [facility] POCT-GLUCOSE METER 2021-08-30 21:08:00 Shama Rosenthal [facility] POCT-GLUCOSE METER 2021-08-30 17:25:00 Shama Rosenthal [facility] POCT-GLUCOSE METER 2021-08-30 12:38:00 Shama Rosenthal [facility] POCT-GLUCOSE METER 2021-08-30 08:11:00 Shama Rosenthal [facility] MAGNESIUM 2021-08-30 03:22:00 Mervin [facility] COMPREHENSIVE METABOLIC 2021-08-30 03:22:00 JasielamNilsa Gladys CH [facility] CBC (HEMOGRAM ONLY) 2021-08-30 03:22:00 Nilsa Rios [facility] PROTHROMBIN TIME/INR 2021-08-30 03:22:00 Ukani, [facility] PT/APTT 2021-08-30 03:22:00 [facility] C-REACTIVE PROTEIN 2021-08-30 03:22:00 [facility] DOUBLE-STRANDED [facility] (DSDNA) 2021-08-30 03:22:00 Ukani, [facility] ANTIBODY Medical Center LIPASE 2021-08-30 03:22:[address] [facility] ANTI-DNA TITER 2021-08-30 03:22:00 [facility] POCT-GLUCOSE METER 2021-08-29 21:37:00 Gabriel [facility] POCT-GLUCOSE METER 2021-08-29 17:43:00 Nilsa Rios [facility] FIBRINOGEN 2021-08-29 13:31:00 [facility] PHOSPHATIDY[facility]ERINE ABS (IGG, 2021-08-29 13:31:00 [facility] IGM) [facility] HEREDITARY HEMOCHROMATOSIS 2021-08-29 13:31:00 Rik Caro [facility] POCT-GLUCOSE METER 2021-08-29 11:43:00 Nalam [facility] POCT-GLUCOSE METER 2021-08-29 08:43:00 Jasiel [facility] SARS-COV2/RT-PCR (SLHS & REF 2021-08-29 04:44:00 Colette Gonzalez [facility] MAGNESIUM 2021-08-29 04:41:00 Vernell Gonzalez [facility] COMPREHENSIVE METABOLIC 2021-08-29 04:41:00 [facility] Health[facility] PROTHROMBIN TIME/INR 2021-08-29 04:41:00 Ukani, Nilam [facility] LIPASE 2021-08-29 04:41:00 Pierce, Davidson [facility] PHOSPHORUS 2021-08-29 04:41:00 [facility] (MANUAL DIFFERENTIAL) 2021-08-29 04:40:00 Gabriel [facility] CBC (HEMOGRAM ONLY) 2021-08-29 04:40:00 Gabriel [facility] PERIPHERAL BLOOD SMEAR - 2021-08-29 04:40:00 Efrain [facility] PATHOLOGIST RE[facility] POCT-GLUCOSE METER 2021-08-29 04:30:00 Gabriel [facility] ACTIN (SMOOTH MUSCLE) 2021-08-28 14:55:00 Rik Caro L[facility] ANTIBODY, IGG Medical Center ANTI-MITOCHONDRIAL AB, 2021-08-28 14:55:00 Rik Caro [facility] REFLEX TO TITER [facility] ANTI-NUCLEAR ANTIBODY (SHANKAR) 2021-08-28 14:55:00 [facility] CERULOPLASMIN 2021-08-28 14:55:00 [facility] FERRITIN 2021-08-28 14:55:00 [facility] HEPAT[facility]IS A ANTIBODY, IGG 2021-08-28 14:55:00 Rik Caro [facility] HEPATITIS B CORE ANTIBODY, 2021-08-28 14:55:00 Rik Caro [facility] HEPATITIS B SURFACE ANTIBODY 2021-08-28 14:55:00 Rik Caro [facility] HEPATITIS B SURFACE ANTIGEN 2021-08-28 14:55:00 [facility] HEPATITIS C ANTIBODY 2021-08-28 14:55:00 Gordo [facility] IMMUNOGLOBULIN G (IGG) 2021-08-28 14:55:00 Caro, [facility] IRON, TIBC, % SAT. (WITHOUT 2021-08-28 14:55:00 [facility] SHANKAR TITER AND PATTERN 2021-08-28 14:55:00 Gordo [facility] MITOCHONDRIAL AB SCREEN 2021-08-28 14:55:00 Gordo [facility] MITOCHONDRIAL AB TITER 2021-08-28 14:55:00 Gordo [facility] MISCELLANEOUS LAB ORDER 2021-08-28 14:10:00 Gordo [facility] CQNRS-2-AVIUTCMBDLM\\, SERUM 2021-08-28 14:10:00 Gordo [facility] RAPID DRUG SCREEN, URINE 2021-08-28 13:54:00 Rik Caro Lio [facility] POCT-GLUCOSE METER 2021-08-28 12:20:00 Nalam, Nilsa Gladys [facility] POCT-GLUCOSE METER 2021-08-28 08:07:00 Nalam, Nilsa Gladys [facility] MAGNESIUM 2021-08-28 04:38:00 Mervin [facility] COMPREHENSIVE METABOLIC 2021-08-28 04:38:00 Nalam, Nilsa Gladys [facility] CBC (HEMOGRAM ONLY) 2021-08-28 04:38:00 Nalam, Nilsa Gladys [facility] POCT-GLUCOSE METER 2021-08-27 22:18:00 Nalam, Nilsa Gladys [facility] MR ABDOMEN WITHOUT IV 2021-08-27 17:55:00 Nalam, Nilsa Gladys [facility] MR ABDOMEN WITH & WITHOUT IV 2021-08-27 17:55:00 Nalam, Nilsa [facility] MAGNESIUM 2021-08-27 05:38:00 Mervin Vernell [facility] COMPREHENSIVE METABOLIC 2021-08-27 05:38:00 Nalam, Nilsa Gladys [facility] CBC (HEMOGRAM ONLY) 2021-08-27 05:38:00 GabrielAnnNilsayoly Graham [facility] URINALYSIS W/ REFLEX URINE 2021-08-26 04:24:00 [facility] BLOOD CULTURE 2021-08-26 04:15:00 [facility] BLOOD CULTURE 2021-08-26 01:51:00 [facility] CBC W/PLT COUNT & AUTO 2021-08-26 01:50:00 [facility] (CELLAVISION MANUAL DIFF) 2021-08-26 01:50:00 [facility] CBC W/PLT COUNT & AUTO 2021-08-26 01:50:00 [facility] COMPREHENSIVE METABOLIC 2021-08-26 01:50:[address] [facility] MAGNESIUM 2021-08-26 01:50:00 [facility] TRIGLYCERIDES 2021-08-26 01:50:00 [facility] LIPASE 2021-08-26 01:50:00 [facility] PROTHROMBIN TIME/INR 2021-08-26 01:49:00 [facility] S [facility] IGG SUBCLASS-4 ONLY 2021-08-26 01:49:00 [facility] Plan of Care Planned Activity Planned Date Details Comments Source Future Scheduled 2030-11-15 DTAP/TDAP/TD VACCINES [facility] Test 00:00:00 (2 - Td or Tdap) [code Medic al Center = DTAP/TDAP/TD VACCINES (2 - Td or Tdap)] Future Scheduled 2030-11-15 DTAP/TDAP/TD VACCINES [facility] Test 00:00:00 (2 - Td or Tdap) [code Medic al Center = DTAP/TDAP/TD VACCINES (2 - Td or Tdap)] Future Scheduled 2024-12-[address] [facility] Test 00:00:00 (procedure) [code = Medical Center [id number]] Future Scheduled 2024-12-[address] [facility] Test 00:00:00 (procedure) [code = Medical Center [id number]] Future Scheduled 2022-01-18 INFLUENZA VACCINE (#1) [facility] 00:00:00 [code = INFLUENZA Medical Ce nter VACCINE (#1)] Future Scheduled 2022-01-18 INFLUENZA VACCINE (#1) [facility] 00:00:00 [code = INFLUENZA Medical Ce nter VACCINE (#1)] Future Scheduled 2021-11-[address] [facility] Test 00:00:00 0-64 YRS (2 - PPSV23 Medical Center or PCV20) [code = PNEUMOCOCCAL VACCINE 0-64 YRS (2 - PPSV23 or PCV20)] Future Scheduled 2021-11-[address] [facility] Test 00:00:00 0-64 YRS (2 - PPSV23 Medical Center or PCV20) [code = PNEUMOCOCCAL VACCINE 0-64 YRS (2 - PPSV23 or PCV20)] Future Scheduled 2020-09-19 COVID-19 VACCINE (2 - [facility] Test 00:00:00 Jaja risk series) Medical Center [code = COVID-19 VACCINE (2 - Jaja risk series)] Future Scheduled 2020-09-19 COVID-19 VACCINE (2 - [facility] Test 00:00:00 Jaja risk series) Medical Center [code = COVID-19 VACCINE (2 - Jaja risk series)] Encounters Start End Encounter Admission Attending Care Care Encounter Source Date/Time Date/Time Type Type Clinicians Facility Department ID 2022-02-21 Outpatient 3 [id number] [facility] REF [id number] [facility] 15:15:18 [facility] [place] 2022-02-09 Outpatient 3 TI VJ [facility] [id number] [facility] 10:16:03 WILLARD [id number] [facility] [place] 2022-02-07 Outpatient 3 TI VJ [facility] [id number] [facility] 12:02:45 WILLARD [facility] [place] 2022-02-06 Outpatient 3 [id number] [facility] REF [id number] [facility] 12:16:49 [facility] [place] 2021-12-07 [facility] [id number] 00:00:00 Encounter [facility] 2021-12-07 [facility] [id number] 00:00:00 Encounter [facility] 2021-10-09 Outpatient 3 VJ CROUCH OT [id number] [facility] 10:19:53 WILLARD [facility] [place] 2021-10-08 Outpatient 3 VJ CROUCH OT [id number] [facility] 16:06:37 WILLARD [facility] [place] 2021-10-05 Outpatient 3 [id number] [facility] REF [id number] [facility] 08:52:05 [facility] [place] 2021-10-04 Outpatient 3 [id number] [facility] REF [id number] [facility] 08:39:39 [facility] [place] 2021-09-25 Outpatient 3 [id number] [facility] [id number] [facility] 10:41:49 [facility] [place] 2021-09-04 Outpatient 3 [id number] [facility] REF [id number] [facility] 15:32:58 [facility] [place] 2021-09-04 Outpatient 3 [id number] E[facility] REF [id number] [facility] 08:59:04 0418 [facility] [place] 2021-09-02 Outpatient 3 [id number] [facility] REF [id number] [facility] 11:35:01 0416 [facility] [place] 2021-09-01 Outpatient 3 [id number] [facility] REF [id number] [facility] 14:10:28 0415 [facility] [place] 2022-02-18 2022-03-12 [facility] [id number] 23:00:00 16:50:00 Encounter Silvio Mccray 7 [facility] 2022-02-18 2022-03-12 Inpatient ER ABIODUN [facility] Emergency [id number] [facility] 23:00:00 16:50:00 SILVIO 7 2022-03-08 2022-03-08 Orders Masood [facility] [id number] 00:00:00 00:00:00 Only [facility] 2022-02-11 2022-02-21 Inpatient 3 VJ [facility] [id number] [facility] 21:26:00 11:05:00 WILLARD [id number] [facility] [place] 2022-02-20 2022-02-20 Outpatient EL [id number] [facility] 10:18:00 10:18:00 Willard 69 [facility] 2022-01-25 2022-02-11 Hospital Gricelda Arteaga [facility] [id number] 04:38:00 21:00:00 [facility] 2022-01-25 2022-02-11 Inpatient ER ELI, [facility] Surgery [id number] [facility] 04:38:00 21:00:00 [facility] 2022-02-07 2022-02-07 Anesthesia Tamia Jha [facility] [id number] 12:47:00 16:04:00 Event Marck Sterling [facility] 2022-02-07 2022-02-07 Surgery Lissette, [facility] [id number] 11:56:00 15:22:00 [facility] 2022-02-02 2022-02-02 Surgery Willard, [facility] [id number] 12:00:00 13:00:00 [facility] 2022-02-02 2022-02-02 Anesthesia Jason, [facility] [id number] 11:37:00 12:37:00 Event [facility] 2022-01-25 2022-01-25 Outpatient [facility] [id number] [facility] 04:38:00 23:59:00 [facility] 2022-01-25 2022-01-25 Outpatient BCM BCM [id number] [facility] 04:38:00 04:38:00 [facility] 2022-01-25 2022-01-25 Travel [facility] [id number] [facility] 00[facility] 00:00:00 [facility] 2021-12-07 2021-12-25 [facility] Khushi Rupa [facility] [id number] [facility] 12:15:00 21:00:00 [facility] 2021-12-07 2021-12-25 [facility] [id number] [facility] 12:15:00 21:00:00 [facility] 2021-12-07 2021-12-25 Inpatient ER MARVA, SLE Emergency [id number] [facility] 12:15:00 21:00:00 BETHANY 2021-12-11 2021-12-11 Outside Marva, [facility] [id number] 00:00:00 00:00:00 Orders Bethany Roberts [facility] 2021-12-11 2021-12-11 Outside Marva [facility] [id number] 00:00:00 00:00:00 Orders Bethany Roberts [facility] 2021-12-08 2021-12-08 Travel [facility] [id number] [facility] 00:00:00 00:00:00 [facility] 2021-12-08 2021-12-08 Travel [facility] [id number] [facility] 00:00:00 00:00:00 [facility] 2021-12-07 2021-12-07 Travel [facility] [id number] [facility] 00:00:00 00:00:00 [facility] 2021-12-07 2021-12-07 Travel [facility] [id number] [facility] 00:00:00 00:00:00 [facility] 2021-10-10 2021-10-27 Inpatient [facility] [id number] [facility] 15:00:00 13:33:00 WILLARD [id number] [facility] [place] 2021-10-23 2021-10-23 Outpatient KEAGAN [facility] [id number] [facility] 13:20:00 13:20:00 Willard 60 [facility] 2021-10-20 2021-10-20 Outside [facility] [id number] 00:00:00 00:00:00 Orders [facility] 2021-10-20 2021-10-20 Outside [facility] [id number] 00:00:00 00:00:00 Orders [facility] 2021-10-19 2021-10-19 Outpatient ISMAEL GOYAL [id number] [place] [address] 13:28:45 14:35:41 AMADOVIRGILIO [facility] 2021-10-19 2021-10-19 Outpatient [facility] [id number] [facility] 00:00:00 00:00:00 DOUG 2021-09-27 2021-10-10 [facility] [id number] 17:55:00 14:32:00 [facility]counter [facility] 2021-09-27 2021-10-10 [facility] [id number] 17:55:00 14:32:00 Encounter [facility] 2021-09-27 2021-10-10 Inpatient ER RIA MAN Emergency [id number] [facility] 17:55:00 14:32:00 SUHAIL 2021-10-10 2021-10-10 Outpatient IRA HILARIO [facility] [id number] [facility] 00:00:00 00:00:00 DOUG 2021-10-02 2021-10-02 Anesthesia Aravind Harley [facility] [id number] 17:02:00 19:27:00 Event Ary Cohen [facility] 2021-10-02 2021-10-02 [facility] [id number] [facility] 17:02:00 19:27:00 Event Ary Cohen [facility] 2021-10-02 2021-10-02 Surgery [facility] [id number] 16:30:00 19:12:00 [facility] 2021-10-02 2021-10-02 Surgery [facility] [id number] 16:30:00 19:12:00 [facility] 2021-09-28 2021-09-28 Outpatient [facility] [id number] [facility] 00:00:00 23:59:00 Amayag alejandro of Medicin e 2021-09-22 2021-09-27 Inpatient 3 TI VJ ART [id number] [facility] 19:40:00 16:58:00 WILLARD [id number] [facility] Rehabil it[facility] [place] 2021-09-27 2021-09-27 Outpatient NICHO Crouch [facility] [id number] [facility] 13:42:00 13:42:00 Willard 14 [facility] 2021-08-25 2021-09-22 [facility] Victor M Manabrian Mireles [facility] [id number] 23:24:00 18:50:00 Encounter [facility]ervin[facility] Rose Jones, Oren Cuellar, Rebecca Benitez, Irina 2021-08-25 2021-09-22 [facility] ER Mana Dow [facility] [id number] 23:24:00 18:50:00 Encounter Vernell [facility] Rose Jones, Oren Cuellar, Rebecca Benitez, Irina 2021-08-25 2021-09-22 Inpatient ER ELI, SLEH [facility] [id number] SLE 23:24:00 18:50:00 IRINA 2021-09-07 2021-09-07 Outpatient CHAPIS OSPINA [id number] [facility] 00:00:00 00:00:00 SAMIM Seybol d 2021-09-04 2021-09-04 Outpatient [facility] [id number] [facility] 00:00:00 23:59:00 Lacie allen of Medicin e 2021-09-01 2021-09-01 Orders [facility] [id number] 00:00:00 00:00:00 Only [facility] 2021-09-01 2021-09-01 Orders [facility] [id number] 00:00:00 00:00:00 Only [facility] 2021-08-26 2021-08-26 Travel [facility] [id number] [facility] 00:00:00 00:00:00 [facility] 2021-08-26 2021-08-26 Travel [facility] [id number] [facility] 00:00:00 00:00:00 [facility] Results Test Description Test Time Test Comments Results Result Comments Source BASIC METABOLIC PANEL 2022-03-12 06:05:57 Test Item Value Reference Range Interpretation Comme nts SODIUM (BEAKER) (test 138 meq/L 136-145 code = 381) POTASSIUM (BEAKER) 3.8 meq/L 3.5-5.1 (test code = 379) CHLORIDE (BEAKER) (test 102 meq/L 98-107 code = 382) CO2 (BEAKER) (test code 26 meq/L 22-29 = 355) BLOOD UREA NITROGEN 19 mg/dL 7-21 (BEAKER) (test code = 354) CREATININE (BEAKER) 0.67 mg/dL 0.57-1.25 (test code = 358) GLUCOSE RANDOM (BEAKER) 132 mg/dL 70-105 H (test code = 652) CALCIUM (BEAKER) (test 9.3 mg/dL 8.4-10.2 code = 697) EGFR (BEAKER) (test 135 mL/min/1.73 sq I nterpretation of eGFR values code = 1092) m Stage Descripti on Result G1 Normal or high >=90 G2 Mildly decreased 60-89 G3a Mildly to moderately 45-5 9 G3b Moderately to severely 30- 44 G4 Severly decreased 15-29 G5 Kidney failure <15Repo rted eGFR is based on the CK D-EPI 2020 equation that d oes not use a race coefficien tEstimated GFR is not as accurate as Creatinine Clearance in pr edicting glomerular filt ration rate. Estimated GFR i s not applicable for dialysis nataly hodge [employer] Consultant ID - MARIBEL Modi ID - MAILEJOVI LCBC (HEMOGRAM ONLY)2022-03-12 05:32:20 Test Item Value Reference Range Interpretation Comments WHITE BLOOD CELL COUNT (BEAKER) 8.0 K/ L 3.5-10.5 (test code = 775) RED BLOOD CELL COUNT (BEAKER) 5.04 M/ L 4.63-6.08 (test code = 761) HEMOGLOBIN (BEAKER) (test code = 13.1 GM/DL 13.7-17.5 L 410) HEMATOCRIT (BEAKER) (test code = 41.7 % 40.1-51.0 411) MEAN CORPUSCULAR VOLUME (BEAKER) 83 fL 79-92 (test code = 753) MEAN CORPUSCULAR HEMOGLOBIN 26.0 pg 25.7-32.2 (BEAKER) (test code = 751) MEAN CORPUSCULAR HEMOGLOBIN CONC 31.4 GM/DL 32.3-36.5 L (BEAKER) (test code = 752) RED CELL DISTRIBUTION WIDTH 16.7 % 11.6-14.4 H (BEAKER) (test code = 412) PLATELET COUNT (BEAKER) (test 243 K/CU MM 150-450 code = 756) MEAN PLATELET VOLUME (BEAKER) 10.5 fL 9.4-12.4 (test code = 754) NUCLEATED RED BLOOD CELLS 0 /100 WBC 0-0 (BEAKER) (test code = 413) CT, [id number] 09:26:00Unlisted Reason for Exam - Click Yes and Enter Reason Below->NoIs this for enterography?->NoWill this procedure require oral contrast?->Yes [facility] : 2000 Sex: MFINAL REPORT TECHNIQUE: CT of the abdomen and pelvis was performed following the uneventful administration of 100 mL of Isovue 370 intravenous contrast according to standard protocol. Indication: Abdominal abscess COMPARISON: CT of the abdomen and pelvis dated 03/01/2022 and 02/05/2022 Fin dings: Lower Chest:Normal. Liver: Normal. Gallbladder and Bile Ducts: Normal. Pancreas: Normal. Adrenals: Normal. Kidneys: Normal. Gastrointestinal: Gastric wall thickening is seen, likely reactive. The stomach and visualized loops of large and small bowel are unremarkable. Normal appendix. Spleen/Mese ntery/Peritoneum/Retroperitoneum: Splenic granulomas are seen. Perisplenic inflammation is seen Since the prior study, there has been interval decrease in size multiloculated air and fluid collections in the left upper quadrant abutting the spleen and greater curvature of the stomach, largest pockets m easuring 3.6 x 1.9 cm (axial image 17) and 2.2 x 3.1 cm (axial image 21). Bladder:Normal. Reproductive Organs: Normal Vasculature: No vascular abnormality is present. Unchanged narrowing of the splenicvein. Bones: Bone windows demonstrate no suspicious lytic or blastic lesions. The visible osseous str uctures are intact. Soft tissues: Postsurgical changes of the anterior abdominal wall. Impression: Persistent but overall decreased appearance of multiloculated collections in the left upper quadrant between the greater curvature of the stomach and spleen. Reactive inflammation is seen in this region.Gastric wall thickening likely reactive. Signed: Cira Dorado MDReport Verified Date/Time: 03/11/2022 09:26:38 Reading Location: [address] Transitional Reading Room BASIC METABOLIC [id number] 06:38:12 Test Item Value Reference Range Interpretation Comments SODIUM (BEAKER) 132 meq/L 136-145 L (test code = 381) POTASSIUM 3.5 meq/L 3.5-5.1 (BEAKER) (test code = 379) CHLORIDE (BEAKER) 96 meq/L 98-107 L (test code = 382) CO2 (BEAKER) 28 meq/L 22-29 (test code = 355) BLOOD UREA 19 mg/dL 7-21 NITROGEN (BEAKER) (test code = 354) CREATININE 0.59 mg/dL 0.57-1.25 (BEAKER) (test code = 358) GLUCOSE RANDOM 102 mg/dL 70-105 (BEAKER) (test code = 652) CALCIUM (BEAKER) 9.0 mg/dL 8.4-10.2 (test code = 697) EGFR (BEAKER) 140 Interpretati on of eGFR (test code = mL/min/1.73 values Stage De scription 1092) sq m Result G1 Kiley l or high >=90 G2 Mildly decreased 60-89 G3a Mildl y to moderately 45-5 9 G3b Moderately to s everely 30-44 G4 Severl y decreased 15-29 G5 Kidney failure <15Reported eGF R is based on the CKD-EPI 202 equation that d oes not use a race coefficientEsti mated GFR is not as accur ate as Creatinine Kari harrison in predicting glom erular filtration rate . Estimated GFR is not appl icable for dialysis patien ts [employer] Consultant ID - ADMINCBC W/PLT COUNT & AUTO [id number] 05:54:20 Test Item Value Reference Range Interpretation Comments WHITE BLOOD CELL COUNT (BEAKER) 9.9 K/ L 3.5-10.5 (test code = 775) RED BLOOD CELL COUNT (BEAKER) 4.80 M/ L 4.63-6.08 (test code = 761) HEMOGLOBIN (BEAKER) (test code = 12.2 GM/DL 13.7-17.5 L 410) HEMATOCRIT (BEAKER) (test code = 38.2 % 40.1-51.0 L 411) MEAN CORPUSCULAR VOLUME (BEAKER) 80 fL 79-92 (test code = 753) MEAN CORPUSCULAR HEMOGLOBIN 25.4 pg 25.7-32.2 L (BEAKER) (test code = 751) MEAN CORPUSCULAR HEMOGLOBIN CONC 31.9 GM/DL 32.3-36.5 L (BEAKER) (test code = 752) RED CELL DISTRIBUTION WIDTH 16.7 % 11.6-14.4 H (BEAKER) (test code = 412) PLATELET COUNT (BEAKER) (test 262 K/CU MM 150-450 code = 756) MEAN PLATELET VOLUME (BEAKER) 10.6 fL 9.4-12.4 (test code = 754) NUCLEATED RED BLOOD CELLS 0 /100 WBC 0-0 (BEAKER) (test code = 413) NEUTROPHILS RELATIVE PERCENT 71 % (BEAKER) (test code = 429) LYMPHOCYTES RELATIVE PERCENT 17 % (BEAKER) (test code = 430) MONOCYTES RELATIVE PERCENT 9 % (BEAKER) (test code = 431) EOSINOPHILS RELATIVE PERCENT 2 % (BEAKER) (test code = 432) BASOPHILS RELATIVE PERCENT 1 % (BEAKER) (test code = 437) NEUTROPHILS ABSOLUTE COUNT 7.01 K/ L 1.78-5.38 H (BEAKER) (test code = 670) LYMPHOCYTES ABSOLUTE COUNT 1.64 K/ L 1.32-3.57 (BEAKER) (test code = 414) MONOCYTES ABSOLUTE COUNT (BEAKER) 0.85 K/ L 0.30-0.82 H (test code = 415) EOSINOPHILS ABSOLUTE COUNT 0.15 K/ L 0.04-0.54 (BEAKER) (test code = 416) BASOPHILS ABSOLUTE COUNT (BEAKER) 0.06 K/ L 0.01-0.08 (test code = 417) IMMATURE GRANULOCYTES-RELATIVE 1.50 % 0.00-1.00 H PERCENT (BEAKER) (test code = 2801) RAD, CHEST, 1 VIEW, NON [id number] 15:36:0015T-10 [facility] : 2000 Sex: MFINALREPORT INDICATION: Picc line placement COMPARISON: 02/06/2022 TECHNIQUE: Single frontal view of the chest. FINDINGS: Lines, tubes, and devices: Right PICC tip overlies the superior vena cava. Lungs and pleura: Clear lungs. No pneumothorax.Heart and mediastinum: Normal heart size. Unremarkable mediastinal contours.Osseous structures: No acute abnormality.Other: None. IMPRESSION: Right PICC tip overlies the superior vena cava. Signed: Lew Garcia [facility] Verified Date/Time: 03/06/2022 15:36:20 Reading Location: [address] Reading Room CT, [id number] 09:42:00Pain. Hx LUQ collection assess for possible to drain now as well. [facility] : 2000 Sex: MFINAL REPORT CT of the abdomen and pelvis History: Left upper quadrant collection Comparison: CT abdomen/pelvis with contrast from 02/05/2022. Technique: Multidetector CT scanning of the abdomen and pelvis was performed from the level of the lung bases to the inferior pubic ramus, WITH intravenous administration of non-ionic contrast and WITHOUT oral contrast. Coronal and sagittal reformats were reviewed. DOSE REDUCTION: The examination was performed according to departmental dose-optimization program which includes automated exposure control, adjustment of the mA and/or kV according to patient size and/or use of iterative reconstruction technique. Findings: The visualized intrathoracic contents demonstrate no significant abnormalities. The liver is normal in size and attenuation without evidence for focal abnormality. The gallbladder is unremarkable. There is no biliary ductal dilatation. The stomach and bilateral adrenal glands demonstrate no significant abnormalities. The splee n is prominent and contains multiple calcified granulomas, unchanged from the prior examination. Again identified are air-fluid collections within the left upper quadrant with largest collection noted adjacent to the pancreatic tail, anterior to the spleen, and along greater curvature of the stomach which measures approximately 2.2 x 4.8 cm (axial image 17). These collections are not significantly changed from prior examinations. Smaller foci of air and fluid also noted along the splenic hilum, unchanged from the prior examination. The pancreas is otherwise unremarkable. The kidneys are normal in size and location and enhance symmetrically. There is no evidence for nephrolithiasis or hydronephrosis. No ureteral stone or dilatation is appreciated. The urinary bladder demonstrates no significant abnormalities. The prostate is unremarkable. The abdominal aorta is normal course and caliber. The IVC is unremarkable. The portal venous system, SMV, and splenic vein remain patent. Please note evaluation of bowel is limited without the use of enteric contrast material. The visualized loops of small large bowel demonstrate no evidence of obstruction or inflammation. There is no ascites or peritoneal free air. No abnormally enlarged lymph nodes are identified within the abdomen or pelvis. The osseous structures demonstrate no evidence for acute fracture or destructive process. Stable postsurgical changes noted of the midline anterior abdominal wall without evidence for organized fluid collection. Theextraperitoneal soft tissues are unremarkable. IMPRESSION:No significant change in fluid collectionswithin the left upper quadrant with largest component along the left subdiaphragmatic/gastrosplenic ligament region. Percutaneous access would be technically challenging and may not be possible given surrounding structures as detailed above. The largest component of the collection abuts the greater cur vature of the stomach. Consider GI consultation for possible endoscopic drainage if clinically indicated. Additional stable findings as above Signed: Bony Page MDReport Verified Date/Time: 03/01/2022 09:42:02 FL, ASPIRATION/[id number] 16:11:00[facility] : 2000 Sex: MFINAL REPORT Fluoroscopic guided bilateral hip therapeutic injection History: Bilateral hip pain Technique: Written informed consent was obtained after discussing risks, benefits, and alternatives of the procedure with the patient. Patient was brought to the fluoroscopy suite and placed in supine position. Suitable percutaneous access site was initially chosen overlying the left hip joint. Overlying skin was prepared and draped in the usual sterile fashion. Overlying tissues were anesthetized with dilute Lidocaine for local anesthesia. Using fluoroscopic guidance, an 22 gauge spinal needle was advanced into the left hip joint. Proper needle positioning was confirmed by injection of approximately 3 cc of Isovue-300 contrast. Customer Experience Manager images saved in the patient's medical record. Subsequently, a mixture of 80 mg of methylprednisolone and 5 mL of 0.25% Bupivacaine was injected into the left hip joint. The needle was removed. Hemostasis was achieved at puncture site by direct compression. The patient tolerated the procedure well. There were no complications. Attention was then directed to the right hip joint. Overlying skin was prepared and draped in the usual sterile fashion.Overlying tissues were anesthetized with dilute Lidocaine for local anesthesia. Using fluoroscopic guidance, an 22 gauge spinal needle was advanced into the right hip joint. Proper needle positioning was confirmed by injection of approximately 3 cc of Isovue-300 contrast. Customer Experience Manager images saved in the patient's medical record. Subsequently, a mixture of 80 mg of methylprednisolone and 5 mL of 0.25% Bupivacaine was injected into the right hip joint. Needle was removed. Hemostasis was achieved atthe puncture site by direct compression. The patient tolerated the procedure well. There were no complications. Total fluoroscopy time: 1.1 minutes Number of fluoroscopic images obtained: 2 Impression:Technically successful fluoroscopic guided bilateral hip therapeutic injections as described above. Signed: Taz Lunsford MDReport Verified Date/Time: 02/27/2022 16:11:07 Reading Location: [address] Ortho Consult Reading Room MR, EXTREMITY, LOWER, HIP JOINT, WITHOUT CONTRAST, [id number] 15:21:00 [facility] : 2000 Sex: MFINAL REPORT MRI OF THE LEFT HIP HISTORY: Left hip pain, avascular necrosis, osteoarthritis COMPARISON: CT pelvis of 02/05/2022 TECHNIQUE: Multiplanar multisequence MRI of the left hip wasperformed without contrast. Examination included coronal large xwost-ec-gkpx sequences of the pelvisand bilateral hips as well as dedicated small uahdt-ky-edsd unilateral axial and sagittal oblique sequences of the left hip. FINDINGS: No fracture is visualized in the left hip. No destructive bone lesion. There is advanced joint space narrowing in the left hip associated with moderate subchondral bone marrow edema and cystic change in the femoral head and milder subchondral bone marrow edema and cystic change in the acetabulum. There are moderate acetabular and femoral head osteophytes. No definiteavascular necrosis is seen in the left hip. Small left hip joint effusion demonstrating complex signal suggestive of synovitis. There is blunting and irregularity of the anterior superior acetabular labrum suggestive of labral degeneration. No other labral abnormalities are visualized in the left hip.No paralabral cystic changes. No muscle or tendon signal abnormalities are visualized in the left hip region. No abnormal greater trochanteric bursal fluid. No abnormality is seen in the imaged left hemipelvis. Symphysis pubis and left sacroiliac joint are unremarkable. IMPRESSION: 1. Moderate to severe left hip osteoarthritis. Signed: Robert Yeung MDReport Verified Date/Time: 02/25/2022 15:21:17 MR, EXTREMITY, LOWER, HIP JOINT, WITHOUT CONTRAST, [id number] 15:17:00 [facility] : 2000 Sex: MFINAL REPORT MRI OF THE RIGHT HIP HISTORY: Right hip pain, avascular necrosis, arthritis COMPARISON: CT pelvis of 02/05/2022 TECHNIQUE: Multiplanar multisequence MRI of the right hip was performed without contrast. Examination included coronal large uizzr-jw-juqh sequences of the pelvis and bilateral hips as well as dedicated small ddlma-uu-sqyk unilateral axial and sagittal oblique sequences of the right hip. FINDINGS: No fracture or stress reaction are visualized in the right hip. There is joint space narrowing in the right hip. No subchondral marrow signal abnormalities or marginal osteophyte formation are visualized in association with this. No high-grade cartilage loss is visualized. Small to moderate right hip joint effusion. No labral or para labral signal abnormalities are identified. No femoral head avascular necrosis. No destructive bone lesion is seen in the right hip. Noerosive changes or marginal bone marrow edema. No muscle or tendon signal abnormalities are identified in the region of the right hip. No abnormal trochanteric bursal fluid. No intrapelvic abnormalities are seen in the imaged right hemipelvis. No right sacroiliac joint abnormalities. Symphysis pubis unremarkable. IMPRESSION: 1. Small to moderate right hip joint effusion. 2. Mild joint space narrowingin the right hip, without evidence of high-grade cartilage loss or associated subchondral marrow signal abnormalities. 3. No evidence of avascular necrosis in the right femoral head. Signed: Robert Yeung MDReport Verified Date/Time: 02/25/2022 15:17:32 RAD, HIPS, 2 VIEWS, [id number] 15:03:00 [facility] : 2000 Sex: MFINAL REPORT TECHNIQUE: 4 views of the bilateral hips. INDICATION: EVAL - AVASCULAR NECROSIS. COMPARISON: CTs from 02/05/2022 and 02/22/2022 FINDINGS:Complete loss of the joint space in theleft hip with near complete joint space loss in the right hip. There is a prominent left hip osteophyte. 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 No definite avascular necrosis. Signed: Yash Lux MDReport Verified Date/Time: 02/24/2022 15:03:53 Reading Location: [facility] C013Y CT Body Reading Room - CT ABD PELVIS W/O CONT 2022-02-20 12:09:00 [facility] : 2000 Sex: M FAX: Willard Vaughn Jr [phone] [place]: St: REG Name: VANGIE OVALLE [facility] : 2000 Age/S: 22/M [address] Unit: [id number] Loc: [place] [address] Phys: Willard Crouch Jr, MD Acct: [id number] Dis Date: Status: REG CLI PHONE #: [phone] Exam Date: 02/20/2022 1115 FAX #: [phone]: FREQUENT BM EXAMS: CPT CODE: [id number] CT ABD PELVIS W/O CONT [id number] EXAM: - CT ABD PELVIS W/O CONT INDICATION: FREQUENT BM TECHNIQUE: CT of the abdomen and pelvis was performed with no intravenous contrast. All CT scans are performed using radiation dose reduction technique. Location:T18 Technical factors are evaluated and adjusted to insure appropriate moderation of exposure. Automated dose management technology is applied to adjust the radiation dose to minimize exposure while achieving a diagnostic quality image. FINDINGS: Statements: Lack of intravenous contrast diminishes sensitivity for evaluation of abdominopelvic organs and vasculature. Visualized chest: No significant abnormality seen. Hepatobiliary: Liver appears unremarkable. Gallbladder appears unremarkable. No intrahepatic orextrahepatic biliary dilatation is seen. Pancreas: Removal of surgical drains seen on the CT examination on 10/23/2021. Resolution interval significant decrease in the fluid in the abdomen, with 2 residual pockets in the left abdomen: Pocket of fluid seen in the left anterior abdomen on series 2, image 43 measuring 3.5 x 1.9 cm, and additional pocket of fluid in the left lower quadrant on series 2, image 8 measuring 5 x 3.2 cm. Spleen: Multiple calcified splenic granulomas noted. Small amount of stranding the left upper quadrant, decreased. Adrenal glands: Appear unremarkable. Kidneys: Appear unremarkable. Bowel: No bowel obstruction or ileus seen. Vascular: Aorta does not appear aneurysmal. Lymph nodes: No enlarged lymph nodes seen. Peritoneum: No ascites or free air is seen. PAGE 1 Signed Report(CONTINUED) FAX: Willard Vaughn Jr [phone] [place]: St: REG Name: VANGIE OVALLE [facility] : 2000 Age/S: 22/M [address] Unit: [id number] Loc: [place] [address] Phys: Willard Crouch Acct: [id number] Dis Date: Status: REG CLI PHONE #: [phone] Exam Date: 02/20/2022 1115 FAX#: [phone] Reason: FREQUENT BM EXAMS: CPT CODE: [id number] CT ABD PELVIS W/O CONT 06776 (Continued) Genitourinary:Urinary bladder appears to be mildly distended. Soft tissues:No significant abnormality seen. Bones:No acute or destructive osseous process seen. IMPRESSION: Interval significant decrease in the previously noted fluid in the abdomen, with 2 residual pockets of fluid as noted in the findings. Please refer to the findings section for additional details. at 1209 Reported and signed by: Bossman Jones MD CC: Willard Crouch Jr Technologist: LAMBERTO SHAFFER Trnscrd Dt/Tm: 02/20/2022 (1209) JozefR.AH26 PAGE 2 Signed ReportDOUBLE-STRANDED DNA (DSDNA) [id number] 12:26:46 Test Item Value Reference Range Interpretation Comments ANTI-DNA DS (BEAKER) (test code = Negative Negative 1055) Anaerobic [id number] 09:53:02 Test Item Value Reference Range Interpretation Comments Result (test code = No anaerobes isolated 6463-4) [facility] [id number] 09:53:02 Test Item Value Reference Range Interpretation Comments CULTURE (BEAKER) (test No anaerobes isolated code = 1095) COMPLEMENT COMPONENT [id number] 13:18:38 Test Item Value Reference Range Interpretation Comments C3 COMPLEMENT (BEAKER) (test code = 103 mg/dL 82-193 393) [employer] Consultant ID - AAHAMIDCOMPLEMENT COMPONENT [id number] 13:18:37 Test Item Value Reference Range Interpretation Comments C4 COMPLEMENT (BEAKER) (test code = 11 mg/dL 15-57 L 394) [employer] Consultant ID - AAHAMIDSURGICALLY OBTAINED CULTURE + GRAM [id number] 11:03:20 Test Item Value Reference Range Interpretation Comments CULTURE (BEAKER) (test ESCHERICHIA COLI A < 1+ Escherichia code = 1095) coli Amikacin (test code = S 1) Ampicillin + Sulbactam S (test code = 6) Aztreonam (test code = S 32) Cefepime (test code = S 51) Cefoxitin (test code = S 68) Ceftazidime (test code S = 27) [...] + S Sulfamethoxazole (test code = 47) CULTURE (BEAKER) (test A 3+ Di phtheroid code = 1095) GRAM STAIN RESULT No White blood (BEAKER) (test code = cells seen 1123) GRAM STAIN RESULT No organisms seen (BEAKER) (test code = 859002) [id number] 06:37:27 Test Item Value Reference Range Interpretation Comments PHOSPHORUS (BEAKER) (test code = 3.5 mg/dL 2.3-4.7 604) Senior Solutions Consultant ID - PIAYA LBASIC METABOLIC [id number] 06:37:26 Test Item Value Reference Range Interpretation Comments SODIUM (BEAKER) 138 meq/L 136-145 (test code = 381) POTASSIUM 4.0 meq/L 3.5-5.1 (BEAKER) (test code = 379) CHLORIDE (BEAKER) 99 meq/L 98-107 (test code = 382) CO2 (BEAKER) 31 meq/L 22-29 H (test code = 355) BLOOD UREA 11 mg/dL 7-21 NITROGEN (BEAKER) (test code = 354) CREATININE 0.53 mg/dL 0.57-1.25 L (BEAKER) (test code = 358) GLUCOSE RANDOM 95 mg/dL 70-105 (BEAKER) (test code = 652) CALCIUM (BEAKER) 9.5 mg/dL 8.4-10.2 (test code = 697) EGFR (BEAKER) 143 Interpretatio n of eGFR (test code = [...] not appl icable for dialysis patien ts Senior Solutions Consultant ID - MARIBEL [id number] 06:37:26 Test Item Value Reference Range Interpretation Comments MAGNESIUM (BEAKER) (test code = 1.5 mg/dL 1.6-2.6 L 627) Senior Solutions Consultant ID - MARIBEL LCBC W/PLT COUNT & AUTO [id number] 05:01:09 Test Item Value Reference Range Interpretation Comments WHITE BLOOD CELL COUNT (BEAKER) 9.2 K/ L 3.5-10.5 (test code = 775) RED BLOOD CELL COUNT (BEAKER) 4.04 M/ L 4.63-6.08 L (test code = 761) HEMOGLOBIN (BEAKER) (test code = 10.4 GM/DL 13.7-17.5 L 410) HEMATOCRIT (BEAKER) (test code = 34.0 % 40.1-51.0 L 411) MEAN CORPUSCULAR VOLUME (BEAKER) 84.2 fL 79.0-92.2 (test code = 753) MEAN CORPUSCULAR HEMOGLOBIN 25.7 pg 25.7-32.2 (BEAKER) (test code = 751) MEAN CORPUSCULAR HEMOGLOBIN CONC 30.6 GM/DL 32.3-36.5 L (BEAKER) (test code = 752) RED CELL DISTRIBUTION WIDTH 17.7 % 11.6-14.4 H (BEAKER) (test code = 412) PLATELET COUNT (BEAKER) (test 292 K/CU MM 150-450 code = 756) MEAN PLATELET VOLUME (BEAKER) 11.3 fL 9.4-12.4 (test code = 754) NUCLEATED RED BLOOD CELLS 0 /100 WBC 0-0 (BEAKER) (test code = 413) NEUTROPHILS RELATIVE PERCENT 70 % (BEAKER) (test code = 429) LYMPHOCYTES RELATIVE PERCENT 17 % (BEAKER) (test code = 430) MONOCYTES RELATIVE PERCENT 6 % (BEAKER) (test code = 431) EOSINOPHILS RELATIVE PERCENT 5 % (BEAKER) (test code = 432) BASOPHILS RELATIVE PERCENT 1 % (BEAKER) (test code = 437) NEUTROPHILS ABSOLUTE COUNT 6.48 K/ L 1.78-5.38 H (BEAKER) (test code = 670) LYMPHOCYTES ABSOLUTE COUNT 1.57 K/ L 1.32-3.57 (BEAKER) (test code = 414) MONOCYTES ABSOLUTE COUNT (BEAKER) 0.54 K/ L 0.30-0.82 (test code = 415) EOSINOPHILS ABSOLUTE COUNT 0.45 K/ L 0.04-0.54 (BEAKER) (test code = 416) BASOPHILS ABSOLUTE COUNT (BEAKER) 0.08 K/ L 0.01-0.08 (test code = 417) IMMATURE GRANULOCYTES-RELATIVE 1 % 0-1 PERCENT (BEAKER) (test code = 2801) BASIC METABOLIC [id number] 06:02:45 Test Item Value Reference Range Interpretation Comments SODIUM (BEAKER) 139 meq/L 136-145 (test code = 381) POTASSIUM 3.7 meq/L 3.5-5.1 (BEAKER) (test code = 379) CHLORIDE (BEAKER) 100 meq/L 98-107 (test code = 382) CO2 (BEAKER) 32 meq/L 22-29 H (test code = 355) BLOOD UREA 13 mg/dL 7-21 NITROGEN (BEAKER) (test code = 354) CREATININE 0.56 mg/dL 0.57-1.25 L (BEAKER) (test code = 358) GLUCOSE RANDOM 157 mg/dL 70-105 H (BEAKER) (test code = 652) CALCIUM (BEAKER) 9.0 mg/dL 8.4-10.2 (test code = 697) EGFR (BEAKER) 141 Interpretatio n of eGFR (test code = [...] not appl icable for dialysis patien ts Senior Solutions Consultant ID - ALVINA MCBC W/PLT COUNT & AUTO [id number] 05:42:07 Test Item Value Reference Range Interpretation Comments WHITE BLOOD CELL COUNT 11.2 K/ L 3.5-10.5 H (BEAKER) (test code = 775) RED BLOOD CELL COUNT 3.83 M/ L 4.63-6.08 L (BEAKER) (test code = 761) HEMOGLOBIN (BEAKER) 10.1 GM/DL 13.7-17.5 L (test code = 410) HEMATOCRIT (BEAKER) 33.1 % 40.1-51.0 L (test code = 411) MEAN CORPUSCULAR 86.4 fL 79.0-92.2 Discordant MCV VOLUME (BEAKER) (test result s from code = 753) previous. Clini doreen correlation required. MEAN CORPUSCULAR 26.4 pg 25.7-32.2 HEMOGLOBIN (BEAKER) (test code = 751) MEAN CORPUSCULAR 30.5 GM/DL 32.3-36.5 L HEMOGLOBIN CONC (BEAKER) (test code = 752) RED CELL DISTRIBUTION 18.6 % 11.6-14.4 H WIDTH (BEAKER) (test code = 412) PLATELET COUNT 243 K/CU MM 150-450 (BEAKER) (test code = 756) MEAN PLATELET VOLUME 10.3 fL 9.4-12.4 (BEAKER) (test code = 754) NUCLEATED RED BLOOD 0 /100 WBC 0-0 CELLS (BEAKER) (test code = 413) NEUTROPHILS RELATIVE 73 % PERCENT (BEAKER) (test code = 429) LYMPHOCYTES RELATIVE 14 % PERCENT (BEAKER) (test code = 430) MONOCYTES RELATIVE 8 % PERCENT (BEAKER) (test code = 431) EOSINOPHILS RELATIVE 4 % PERCENT (BEAKER) (test code = 432) BASOPHILS RELATIVE 1 % PERCENT (BEAKER) (test code = 437) NEUTROPHILS ABSOLUTE 8.09 K/ L 1.78-5.38 H COUNT (BEAKER) (test code = 670) LYMPHOCYTES ABSOLUTE 1.56 K/ L 1.32-3.57 COUNT (BEAKER) (test code = 414) MONOCYTES ABSOLUTE 0.84 K/ L 0.30-0.82 H COUNT (BEAKER) (test code = 415) EOSINOPHILS ABSOLUTE 0.49 K/ L 0.04-0.54 COUNT (BEAKER) (test code = 416) BASOPHILS ABSOLUTE 0.10 K/ L 0.01-0.08 H COUNT (BEAKER) (test code = 417) IMMATURE 1 % 0-1 GRANULOCYTES-RELATIVE PERCENT (BEAKER) (test code = 2801) CBC W/PLT COUNT & AUTO [id number] 05:09:33 Test Item Value Reference Range Interpretation Comments WHITE BLOOD CELL COUNT (BEAKER) 17.2 K/ L 3.5-10.5 H (test code = 775) RED BLOOD CELL COUNT (BEAKER) 4.51 M/ L 4.63-6.08 L (test code = 761) HEMOGLOBIN (BEAKER) (test code = 11.8 GM/DL 13.7-17.5 L 410) HEMATOCRIT (BEAKER) (test code = 37.1 % 40.1-51.0 L 411) MEAN CORPUSCULAR VOLUME (BEAKER) 82.3 fL 79.0-92.2 (test code = 753) MEAN CORPUSCULAR HEMOGLOBIN 26.2 pg 25.7-32.2 (BEAKER) (test code = 751) MEAN CORPUSCULAR HEMOGLOBIN CONC 31.8 GM/DL 32.3-36.5 L (BEAKER) (test code = 752) RED CELL DISTRIBUTION WIDTH 19.4 % 11.6-14.4 H (BEAKER) (test code = 412) PLATELET COUNT (BEAKER) (test 302 K/CU MM 150-450 code = 756) MEAN PLATELET VOLUME (BEAKER) 9.5 fL 9.4-12.4 (test code = 754) NUCLEATED RED BLOOD CELLS 0 /100 WBC 0-0 (BEAKER) (test code = 413) NEUTROPHILS RELATIVE PERCENT 81 % (BEAKER) (test code = 429) LYMPHOCYTES RELATIVE PERCENT 8 % (BEAKER) (test code = 430) MONOCYTES RELATIVE PERCENT 9 % (BEAKER) (test code = 431) EOSINOPHILS RELATIVE PERCENT 1 % (BEAKER) (test code = 432) BASOPHILS RELATIVE PERCENT 1 % (BEAKER) (test code = 437) NEUTROPHILS ABSOLUTE COUNT 13.89 K/ L 1.78-5.38 H (BEAKER) (test code = 670) LYMPHOCYTES ABSOLUTE COUNT 1.37 K/ L 1.32-3.57 (BEAKER) (test code = 414) MONOCYTES ABSOLUTE COUNT (BEAKER) 1.48 K/ L 0.30-0.82 H (test code = 415) EOSINOPHILS ABSOLUTE COUNT 0.22 K/ L 0.04-0.54 (BEAKER) (test code = 416) BASOPHILS ABSOLUTE COUNT (BEAKER) 0.08 K/ L 0.01-0.08 (test code = 417) IMMATURE GRANULOCYTES-RELATIVE 1 % 0-1 PERCENT (BEAKER) (test code = 2801) [id number] 04:56:25 Test Item Value Reference Range Interpretation Comments MAGNESIUM (BEAKER) (test code = 1.6 mg/dL 1.6-2.6 627) Senior Solutions Consultant ID - MARIBEL [id number] 04:56:25 Test Item Value Reference Range Interpretation Comments PHOSPHORUS (BEAKER) (test code = 2.7 mg/dL 2.3-4.7 604) Senior Solutions Consultant ID - MARIBEL LBASIC METABOLIC [id number] 04:56:24 Test Item Value Reference Range Interpretation Comments SODIUM (BEAKER) 138 meq/L 136-145 (test code = 381) POTASSIUM 4.3 meq/L 3.5-5.1 (BEAKER) (test code = 379) CHLORIDE (BEAKER) 101 meq/L 98-107 (test code = 382) CO2 (BEAKER) 29 meq/L 22-29 (test code = 355) BLOOD UREA 14 mg/dL 7-21 NITROGEN (BEAKER) (test code = 354) CREATININE 0.56 mg/dL 0.57-1.25 L (BEAKER) (test code = 358) GLUCOSE RANDOM 104 mg/dL 70-105 (BEAKER) (test code = 652) CALCIUM (BEAKER) 9.3 mg/dL 8.4-10.2 (test code = 697) EGFR (BEAKER) 141 Interpretatio n of eGFR (test code = [...] not appl icable for dialysis patien ts Senior Solutions Consultant ID - MARIBEL [id number] 10:33:28 Test Item Value Reference Range Interpretation Comments PHOSPHORUS (BEAKER) (test code = 3.0 mg/dL 2.3-4.7 604) Senior Solutions Consultant ID - ALVINA MBASIC METABOLIC [id number] 10:33:27 Test Item Value Reference Range Interpretation Comments SODIUM (BEAKER) 136 meq/L 136-145 (test code = 381) POTASSIUM 4.1 meq/L 3.5-5.1 (BEAKER) (test code = 379) CHLORIDE (BEAKER) 99 meq/L 98-107 (test code = 382) CO2 (BEAKER) 29 meq/L 22-29 (test code = 355) BLOOD UREA 15 mg/dL 7-21 NITROGEN (BEAKER) (test code = 354) CREATININE 0.61 mg/dL 0.57-1.25 (BEAKER) (test code = 358) GLUCOSE RANDOM 135 mg/dL 70-105 H (BEAKER) (test code = 652) CALCIUM (BEAKER) 9.4 mg/dL 8.4-10.2 (test code = 697) EGFR (BEAKER) 139 Interpretatio n of eGFR (test code = mL/min/1.73 values Stage De scription 1092) sq m Result G1 Kiley l or high >=90 G2 Mildly decreased 60-89 G3a Mildl y to moderately 45-5 9 G3b Moderately to s everely 30-44 G4 Severl y decreased 15-29 G5 Kidne y failure <15Reported eGF R is based on the CKD-EPI 2020 equation that d oes not use a race coefficientEsti mated GFR is not as accur ate as Creatinine Kari harrison in predicting glom erular filtration rate . Estimated GFR is not appl icable for dialysis patien ts Senior Solutions Consultant ID - ALVINA [id number] 10:33:27 Test Item Value Reference Range Interpretation Comments MAGNESIUM (BEAKER) (test code = 1.7 mg/dL 1.6-2.6 627) Senior Solutions Consultant ID - ALVINA MCBC W/PLT COUNT & AUTO [id number] 10:29:43 Test Item Value Reference Range Interpretation Comments WHITE BLOOD CELL COUNT (BEAKER) 19.5 K/ L 3.5-10.5 H (test code = 775) RED BLOOD CELL COUNT (BEAKER) 4.83 M/ L 4.63-6.08 (test code = 761) HEMOGLOBIN (BEAKER) (test code = 12.6 GM/DL 13.7-17.5 L 410) HEMATOCRIT (BEAKER) (test code = 39.2 % 40.1-51.0 L 411) MEAN CORPUSCULAR VOLUME (BEAKER) 81.2 fL 79.0-92.2 (test code = 753) MEAN CORPUSCULAR HEMOGLOBIN 26.1 pg 25.7-32.2 (BEAKER) (test code = 751) MEAN CORPUSCULAR HEMOGLOBIN CONC 32.1 GM/DL 32.3-36.5 L (BEAKER) (test code = 752) RED CELL DISTRIBUTION WIDTH 19.9 % 11.6-14.4 H (BEAKER) (test code = 412) PLATELET COUNT (BEAKER) (test 382 K/CU MM 150-450 code = 756) MEAN PLATELET VOLUME (BEAKER) 9.9 fL 9.4-12.4 (test code = 754) NUCLEATED [...] (test code = 437) NEUTROPHILS ABSOLUTE COUNT 16.62 K/ L 1.78-5.38 H (BEAKER) (test code = 670) LYMPHOCYTES ABSOLUTE COUNT 1.31 K/ L 1.32-3.57 L (BEAKER) (test code = 414) MONOCYTES ABSOLUTE COUNT (BEAKER) 1.33 K/ L 0.30-0.82 H (test code = 415) EOSINOPHILS ABSOLUTE COUNT 0.05 K/ L 0.04-0.54 (BEAKER) (test code = 416) BASOPHILS ABSOLUTE COUNT (BEAKER) 0.04 K/ L 0.01-0.08 (test code = 417) IMMATURE GRANULOCYTES-RELATIVE 1 % 0-1 PERCENT (BEAKER) (test code = 0091) SPIN/CONCENTRATION [id number] 06:56:34 Test Item Value Reference Range Interpretation Comments Concentration charged (test code = Done 2657) [facility] [id number] 06:56:34 Test Item Value Reference Range Interpretation Comments CONCENTRATION CHARGED (BEAKER) (test Done code = 2657) SARS-CoV2/RT-PCR (Asymptomatic ONLY)2022-02-07 12:35:45 Test Item Value Reference Range Interpretation Comments SARS-COV2/RT-PCR Negative Not Detected, (test code = Negative, See 39850-3) external report for linked test SARS-COV-2 [facility] PERFORMING LAB (test code = 49017-4) IDALIA (test code = Negative result for this IDALIA) test determines that SARS-CoV-2 RNA was not [...] of the Act. Fact Sheet for Healthcare Providers:https://www.qu idel.[employer]/sites/default/f anup/product/documents/F act_Sheet_HC_Providers_L wef_XMMO-LxU-1.pdf Fact Sheet for Healthcare Patients:https://www.[employer]/sites/default/fi les/product/documents/Fa ct_Sheet_Patients_Ly_S ARS-CoV-2.pdf Performing Laboratory:[facility]OV2/RT-PCR ([facility])2022-02-07 12:35:45 Test Item Value Reference Range Interpretation Comments SARS-COV2/RT-PCR (test Negative Not Detected, Negative, code = 4138269) See external report for linked test SARS-COV-2 PERFORMING LAB [facility] (test code = 0521889) Negative result for this test determines that [...] of the Act.Fact Sheet for Healthcare Prov iders:https://www.[employer]/sites/default/files/product/documents/Fact_Sheet_HC _Bnheodhlw_Ssoq_QGJU-MuS-7.pdfFact Sheet for Healthcare Patients:https://www.[employer]/sites/default/files/product/docume nts/Nheu_Hilgz_Afrcbxjc_Bteq_UMOB-WnT-0.pdfPerforming Laboratory:[facility], [place] [id number] 05:26:59 Test Item Value Reference Range Interpretation Comments MAGNESIUM (BEAKER) (test code = 1.7 mg/dL 1.6-2.6 627) Senior Solutions Consultant ID - ALVINA [id number] 05:26:59 Test Item Value Reference Range Interpretation Comments PHOSPHORUS (BEAKER) (test code = 3.3 mg/dL 2.3-4.7 604) Senior Solutions Consultant ID - ALVINA MBASIC METABOLIC [id number] 05:26:58 Test Item Value Reference Range Interpretation Comments SODIUM (BEAKER) 137 meq/L 136-145 (test code = 381) POTASSIUM 4.2 meq/L 3.5-5.1 (BEAKER) (test code = 379) CHLORIDE (BEAKER) 99 meq/L 98-107 (test code = 382) CO2 (BEAKER) 28 meq/L 22-29 (test code = 355) BLOOD UREA 19 mg/dL 7-21 NITROGEN (BEAKER) (test code = 354) CREATININE 0.60 mg/dL 0.57-1.25 (BEAKER) (test code = 358) GLUCOSE RANDOM 113 mg/dL 70-105 H (BEAKER) (test code = 652) CALCIUM (BEAKER) 9.3 mg/dL 8.4-10.2 (test code = 697) EGFR (BEAKER) 140 Interpretatio n of eGFR (test code = [...] not appl icable for dialysis patien ts Senior Solutions Consultant ID - ALVINA MPROTHROMBIN TIME/[id number] 04:21:01 Test Item Value Reference Range Interpretation Comments PROTIME (BEAKER) 14.9 seconds 11.9-14.2 H (test code = 759) INR (BEAKER) (test 1.24 See_Comment [Automat ed message] code = 370) The system [employer] Code generated this result transmitted ref erence range: <=5.90. The reference range was not used to int erpret this result as normal/abnormal . RECOMMENDED COUMADIN/WARFARIN INR THERAPY RANGESSTANDARD DOSE: 2.0 - 3.0 Includes: PROPHYLAXIS for venous thrombosis, systemic embolization; TREATMENT for venous thrombosis and/or pulmonary embolus.HIGH RISK: Target INR is 2.5-3.5 for patients with mechanical heart valves.CBC W/PLT COUNT & AUTO [id number] 04:04:31 Test Item Value Reference Range Interpretation Comments WHITE BLOOD CELL COUNT (BEAKER) 11.0 K/ L 3.5-10.5 H (test code = 775) RED BLOOD CELL COUNT (BEAKER) 4.37 M/ L 4.63-6.08 L (test code = 761) HEMOGLOBIN (BEAKER) (test code = 11.3 GM/DL 13.7-17.5 L 410) HEMATOCRIT (BEAKER) (test code = 36.2 % 40.1-51.0 L 411) MEAN CORPUSCULAR VOLUME (BEAKER) 82.8 fL 79.0-92.2 (test code = 753) MEAN CORPUSCULAR HEMOGLOBIN 25.9 pg 25.7-32.2 (BEAKER) (test code = 751) MEAN CORPUSCULAR HEMOGLOBIN CONC 31.2 GM/DL 32.3-36.5 L (BEAKER) (test code = 752) RED CELL DISTRIBUTION WIDTH 18.8 % 11.6-14.4 H (BEAKER) (test code = 412) PLATELET COUNT (BEAKER) (test 307 K/CU MM 150-450 code = 756) MEAN PLATELET VOLUME (BEAKER) 9.9 fL 9.4-12.4 (test code = 754) NUCLEATED RED BLOOD CELLS 0 /100 WBC 0-0 (BEAKER) (test code = 413) NEUTROPHILS RELATIVE PERCENT 73 % (BEAKER) (test code = 429) LYMPHOCYTES RELATIVE PERCENT 16 % (BEAKER) (test code = 430) MONOCYTES RELATIVE PERCENT 6 % (BEAKER) (test code = 431) EOSINOPHILS RELATIVE PERCENT 3 % (BEAKER) (test code = 432) BASOPHILS RELATIVE PERCENT 1 % (BEAKER) (test code = 437) NEUTROPHILS ABSOLUTE COUNT 8.07 K/ L 1.78-5.38 H (BEAKER) (test code = 670) LYMPHOCYTES ABSOLUTE COUNT 1.77 K/ L 1.32-3.57 (BEAKER) (test code = 414) MONOCYTES ABSOLUTE COUNT (BEAKER) 0.70 K/ L 0.30-0.82 (test code = 415) EOSINOPHILS ABSOLUTE COUNT 0.28 K/ L 0.04-0.54 (BEAKER) (test code = 416) BASOPHILS ABSOLUTE COUNT (BEAKER) 0.10 K/ L 0.01-0.08 H (test code = 417) IMMATURE GRANULOCYTES-RELATIVE 1 % 0-1 PERCENT (BEAKER) (test code = 2801) RAD, CHEST, 1 VIEW, NON [id number] 19:52:00Reason for exam:->post picc line insertionShould this be performed at the bedside?->Yes [facility] 2000 Sex: MFINAL REPORT History: post picc line insertion. Comparison: 12/15/2021 Findings: A single view of the chest is submitted. The examination is limited by lordotic positioning. A right PICC line tip overlies the SVC. The cardiomediastinal contours are unremarkable. There is no focal consolidation, pneumothorax, large pleural effusion or evidence of overt pulmonary edema. There is no acute bony abnormality. Signed: Miles Alicia MDReport Verified Date/Time: 02/06/2022 19:52:18 CT, [id number] 11:33:00Unlisted Reason for Exam - Click Yes and Enter Reason Below->NoIs this for enterography?->NoWill this procedure require oral contrast?->No [facility] : 2000 Sex: MFINAL REPORT CT, ABDOMEN \\T\\ PELVIS, WITH IV CONTRAST HISTORY: Abdominal abscess/infection suspected COMPARISON: 01/30/2022 TECHNIQUE: CT of the abdomen and pelvis WITH intravenous contrast. The examination was performed according to the departmental dose-optimization program, which includes automated exposure control, adjustment of the mA and/or kV according to patient size and/or use of iterative reconstruction technique. FINDINGS: Lower thorax: Unremarkable.Liver: Unremarkable.Gallbladder and bile ducts: Unremarkable.Spleen: The spleen is mildly enlarged. Numerous splenic calcification suggesting old granulomatous disease.Pancreas: Normal pancreatic enhancement and no pancreatic ductal dilation. There is fluid/scarring around the pancreatic tail extending along the left anterior pararenal space and along the splenic hilum and gastrosplenic ligament.Adrenals: UnremarkableKidneys and ureters: Unremarkable.Bowel: Unremarkable.Bladder: Unremarkable.Reproductive organs: Unremarkable.Lymph nodes: Unremarkable.Peritoneum/retroperitoneum: Rim-enhancing fluid and gas along the gastrosplenic ligament measures 6.1 x 3.1 cm. Additional smaller locules of gas along the splenic hilum/pancreatic tail and a rim-enhancing locule of liquid and gas abutting the inferior aspect of the pancreas on the left anterior pararenal space which measures 4.0 x 2.1 cm, with fascial thickening along the inferior left anterior pararenal space. 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 No splenic artery aneurysm. 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 IMPRESSION: 1.Minimal change from 01/30/2022, rim-enhancing collections of liquid and gas near the pancreatic tail, largest in the gastrosplenic ligament measures 6.1 cm and along the left anterior pararenal space measures 4 x 2.1 cm, likely infected and grossly similar in size to 01/30/2022. 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 Signed: Manish Novak Verified Date/Time: 02/05/2022 11:33:01 Reading Location:[address] Body Reading Room MAGNESIUM 2022-02-05 05:39:00 Test Item Value Reference Range Interpretation Comments MAGNESIUM (BEAKER) (test code = 1.6 mg/dL 1.6-2.6 627) [employer] Consultant ID - MAILEJOVI [id number] 05:39:00 Test Item Value Reference Range Interpretation Comments PHOSPHORUS (BEAKER) (test code = 2.5 mg/dL 2.3-4.7 604) [employer] Consultant ID - MARIBEL LBASIC METABOLIC [id number] 05:38:59 Test Item Value Reference Range Interpretation Comments SODIUM (BEAKER) 137 meq/L 136-145 (test code = 381) POTASSIUM 4.0 meq/L 3.5-5.1 (BEAKER) (test code = 379) CHLORIDE (BEAKER) 99 meq/L 98-107 (test code = 382) CO2 (BEAKER) 29 meq/L 22-29 (test code = 355) BLOOD UREA 12 mg/dL 7-21 NITROGEN (BEAKER) (test code = 354) CREATININE 0.56 mg/dL 0.57-1.25 L (BEAKER) (test code = 358) GLUCOSE RANDOM 149 mg/dL 70-105 H (BEAKER) (test code = [...] not appl icable for dialysis patien ts [employer] Consultant ID - PIAYA LCBC W/PLT COUNT & AUTO [id number] 04:47:57 Test Item Value Reference Range Interpretation Comments WHITE BLOOD CELL COUNT (BEAKER) 10.3 K/ L 3.5-10.5 (test code = 775) RED BLOOD CELL COUNT (BEAKER) 4.61 M/ L 4.63-6.08 L (test code = 761) HEMOGLOBIN (BEAKER) (test code = 11.7 GM/DL 13.7-17.5 L 410) HEMATOCRIT (BEAKER) (test code = 39.1 % 40.1-51.0 L 411) MEAN CORPUSCULAR VOLUME (BEAKER) 84.8 fL 79.0-92.2 (test code = 753) MEAN CORPUSCULAR HEMOGLOBIN 25.4 pg 25.7-32.2 L (BEAKER) (test code = 751) MEAN CORPUSCULAR HEMOGLOBIN CONC 29.9 GM/DL 32.3-36.5 L (BEAKER) (test code = 752) RED CELL DISTRIBUTION WIDTH 18.4 % 11.6-14.4 H (BEAKER) (test code = 412) PLATELET COUNT (BEAKER) (test 283 K/CU MM 150-450 code = 756) MEAN PLATELET VOLUME (BEAKER) 10.2 fL 9.4-12.4 (test code = 754) NUCLEATED RED BLOOD CELLS 0 /100 WBC 0-0 (BEAKER) (test code = 413) NEUTROPHILS RELATIVE PERCENT 73 % (BEAKER) (test code = 429) LYMPHOCYTES RELATIVE PERCENT 16 % (BEAKER) (test code = 430) MONOCYTES RELATIVE PERCENT 6 % (BEAKER) (test code = 431) EOSINOPHILS RELATIVE PERCENT 3 % (BEAKER) (test code = 432) BASOPHILS RELATIVE PERCENT 1 % (BEAKER) (test code = 437) NEUTROPHILS ABSOLUTE COUNT 7.51 K/ L 1.78-5.38 H (BEAKER) (test code = 670) LYMPHOCYTES ABSOLUTE COUNT 1.68 K/ L 1.32-3.57 (BEAKER) (test code = 414) MONOCYTES ABSOLUTE COUNT (BEAKER) 0.62 K/ L 0.30-0.82 (test code = 415) EOSINOPHILS ABSOLUTE COUNT 0.28 K/ L 0.04-0.54 (BEAKER) (test code = 416) BASOPHILS ABSOLUTE COUNT (BEAKER) 0.09 K/ L 0.01-0.08 H (test code = 417) IMMATURE GRANULOCYTES-RELATIVE 1 % 0-1 PERCENT (BEAKER) (test code = 2801) POC-Glucose [id number] 07:40:25 Test Item Value Reference Range Interpretation Comments POC-Glucose Meter (test 153 mg/dL 70-110 H : TE STED AT [facility] code = 1538) [address] [facility] [place], [address]: Senior Solutions Consultant/Techni dakota ID = [id number] for CONCE[facility]ION KAY Lab Interpretation (test Abnormal code = 99762-8) [facility] [id number] 07:40:25 Test Item Value Reference Range Interpretation Comments POC-GLUCOSE METER 153 mg/dL 70-110 H : TESTED A T [facility] 6720 (BEAKER) (test code = [place] [facility], 1538) [address]: Senior Solutions Consultant/Techni dakota ID = [id number] for CONCEPCION CORONADO [id number] 05:56:41 Test Item Value Reference Range Interpretation Comments PHOSPHORUS (BEAKER) (test code = 3.4 mg/dL 2.3-4.7 604) Senior Solutions Consultant ID - ALVINA MBASIC METABOLIC [id number] 05:56:40 Test Item Value Reference Range Interpretation Comments SODIUM (BEAKER) 138 meq/L 136-145 (test code = 381) POTASSIUM 4.2 meq/L 3.5-5.1 (BEAKER) (test code = 379) CHLORIDE (BEAKER) 101 [...] (test code = 697) EGFR (BEAKER) 139 Interpretati on of eGFR (test code = mL/min/1.73 values [...] not appl icable for dialysis patien ts Senior Solutions Consultant ID - ALVINA MCBC W/PLT COUNT & AUTO [id number] 05:19:20 Test Item Value Reference Range Interpretation Comments WHITE BLOOD CELL COUNT (BEAKER) 11.9 K/ L 3.5-10.5 H (test code = 775) RED BLOOD CELL COUNT (BEAKER) 4.27 M/ L 4.63-6.08 L (test code = 761) HEMOGLOBIN (BEAKER) (test code = 10.7 GM/DL 13.7-17.5 L 410) HEMATOCRIT (BEAKER) (test code = 36.4 % 40.1-51.0 L 411) MEAN CORPUSCULAR VOLUME (BEAKER) 85.2 fL 79.0-92.2 (test code = 753) MEAN CORPUSCULAR HEMOGLOBIN 25.1 pg 25.7-32.2 L (BEAKER) (test code = [...] (test code = 437) NEUTROPHILS ABSOLUTE COUNT 8.89 K/ L 1.78-5.38 H (BEAKER) (test code = 670) LYMPHOCYTES ABSOLUTE COUNT 1.86 K/ L 1.32-3.57 (BEAKER) (test code = 414) MONOCYTES ABSOLUTE COUNT (BEAKER) 0.73 K/ L 0.30-0.82 (test code = 415) EOSINOPHILS ABSOLUTE COUNT 0.19 K/ L 0.04-0.54 (BEAKER) (test code = 416) BASOPHILS ABSOLUTE COUNT (BEAKER) 0.09 K/ L 0.01-0.08 H (test code = 417) IMMATURE GRANULOCYTES-RELATIVE 1 % 0-1 PERCENT (BEAKER) (test code = 2801) POCT-GLUCOSE [id number] 18:17:28 Test Item Value Reference Range Interpretation Comments POC-GLUCOSE METER 119 mg/dL 70-110 H : TESTED A T [facility] 67[address] (BEAKER) (test code = [place], 15[address]) [address]: Senior Solutions Consultant/Techni dakota ID = [id number] for Melia Navarro, FLUORO, NON-SPECIFIC, UP TO 1 [id number] 12:15:00Reason for exam:- >Pancreatitis with fluid collection [facility] 2000 Sex: MAn imaging unit was utilized for this procedure. No radiologist interpretation was requested. Refer to the EMR for findings. Refer to PACS for any patient radiation dose information.[id number] 06:20:54 Test Item Value Reference Range Interpretation Comments PHOSPHORUS (BEAKER) (test code = 4.1 mg/dL 2.3-4.7 604) Senior Solutions Consultant ID - BSBASIC METABOLIC [id number] 06:20:53 Test Item Value Reference Range Interpretation Comments SODIUM (BEAKER) 136 meq/L 136-145 (test code = 381) POTASSIUM 4.1 meq/L 3.5-5.1 (BEAKER) (test code = 379) CHLORIDE (BEAKER) 96 meq/L 98-107 L (test code = 382) CO2 (BEAKER) 30 meq/L 22-29 H (test code = 355) BLOOD UREA 10 mg/dL 7-21 NITROGEN (BEAKER) (test code = 354) CREATININE 0.55 mg/dL 0.57-1.25 L (BEAKER) (test code = 358) GLUCOSE RANDOM 77 mg/dL 70-105 (BEAKER) (test code = 652) CALCIUM (BEAKER) 9.2 mg/dL 8.4-10.2 (test code = 697) EGFR (BEAKER) 143 Interpretati on of eGFR (test code = mL/min/1.73 values Stage De scription 1092) sq m Result G1 Kiley l or high >=90 G2 Mildly decreased 60-89 G3a Mildl y to moderately 45- 59 G3b Moderately to s everely 30-44 G4 Severl y decreased 15-29 G5 Kidney failure <15Reported eGF R is based on the CKD-EPI 2020 equation that d oes not use a race coefficientEsti mated GFR is not as accur ate as Creatinine Kari hunter in predicting glom erular filtration rate . Estimated GFR is not appl icable for dialysis patien ts Senior Solutions Consultant ID - BSCBC W/PLT COUNT & AUTO [id number] 06:17:18 Test Item Value Reference Range Interpretation Comments WHITE BLOOD CELL COUNT (BEAKER) 13.0 K/ L 3.5-10.5 H (test code = 775) RED BLOOD CELL COUNT (BEAKER) 4.53 M/ L 4.63-6.08 L (test code = 761) HEMOGLOBIN (BEAKER) (test code = 11.7 GM/DL 13.7-17.5 L 410) HEMATOCRIT (BEAKER) (test code = 37.5 % 40.1-51.0 L 411) MEAN CORPUSCULAR VOLUME (BEAKER) 82.8 fL 79.0-92.2 (test code = 753) MEAN CORPUSCULAR HEMOGLOBIN 25.8 pg 25.7-32.2 (BEAKER) (test code = 751) MEAN CORPUSCULAR HEMOGLOBIN CONC 31.2 GM/DL 32.3-36.5 L (BEAKER) (test code = 752) RED CELL DISTRIBUTION WIDTH 17.9 % 11.6-14.4 H (BEAKER) (test code = 412) PLATELET COUNT (BEAKER) (test 319 K/CU MM 150-450 code = 756) MEAN PLATELET VOLUME (BEAKER) 10.1 fL 9.4-12.4 (test code = 754) NUCLEATED RED BLOOD CELLS 0 /100 WBC 0-0 (BEAKER) (test code = 413) NEUTROPHILS RELATIVE PERCENT 74 % (BEAKER) (test code = 429) LYMPHOCYTES RELATIVE PERCENT 16 % (BEAKER) (test code = 430) MONOCYTES RELATIVE PERCENT 6 % (BEAKER) (test code = 431) EOSINOPHILS RELATIVE PERCENT 3 % (BEAKER) (test code = 432) BASOPHILS RELATIVE PERCENT 1 % (BEAKER) (test code = 437) NEUTROPHILS ABSOLUTE COUNT 9.58 K/ L 1.78-5.38 H (BEAKER) (test code = 670) LYMPHOCYTES ABSOLUTE COUNT 2.02 K/ L 1.32-3.57 (BEAKER) (test code = 414) MONOCYTES ABSOLUTE COUNT (BEAKER) 0.73 K/ L 0.30-0.82 (test code = 415) EOSINOPHILS ABSOLUTE COUNT 0.37 K/ L 0.04-0.54 (BEAKER) (test code = 416) BASOPHILS ABSOLUTE COUNT (BEAKER) 0.10 K/ L 0.01-0.08 H (test code = 417) IMMATURE GRANULOCYTES-RELATIVE 1 % 0-1 PERCENT (BEAKER) (test code = 2801) PROTHROMBIN [id number] 05:56:55 Test Item Value Reference Range Interpretation Comments PROTIME (BEAKER) 14.6 seconds 11.9-14.2 H (test code = 759) INR (BEAKER) (test 1.21 See_Comment [Automat ed message] code = 370) The system Cognitive Code generated this result transmitted ref erence range: <=5.90. The reference range was not used to int erpret this result as normal/abnormal . RECOMMENDED COUMADIN/WARFARIN INR THERAPY RANGESSTANDARD DOSE: 2.0 - 3.0 Includes: PROPHYLAXIS for venous thrombosis, systemic embolization; TREATMENT for venous thrombosis and/or pulmonary embolus.HIGH RISK: Target INR is 2.5-3.5 for patients with mechanical heart valves.SARS-COV2/RT-PCR ([facility]) 2022-02-01 11:35:08 Test Item Value Reference Range Interpretation Comments SARS-COV2/RT-PCR Negative Negative The SARS-Co V-2 target (test code = nucleic acids a re not [id number]) detected in thi s specimen. Negative result [...] revoked sooner. Fact Sheet for Healthcare Providers: https://www.Donordonut m/Documents/Xpert%20Xpress%20SARS%20CoV-2/Fact%20Sheets/302-3802%46GCYQ-OHB-5%20 HEALTHCARE%20PROVIDERS%20FACT%20SHEET.pdf Fact Sheet for Healthcare Patients: https://www.PingThings/Documents/Xpert%20Xp ress%20SARS%20CoV-2/Fact%20Sheets/302-3801%63NLLL-KYT-0%20PATIENT%20FACT%20SHEET .[id number] 08:00:14 Test Item Value Reference Range Interpretation Comments PHOSPHORUS (BEAKER) (test code = 3.9 mg/dL 2.3-4.7 604) Senior Solutions Consultant ID - PIAYA LBASIC METABOLIC [id number] 08:00:13 Test Item Value Reference Range Interpretation Comments SODIUM (BEAKER) 136 meq/L 136-145 (test code = 381) POTASSIUM 4.4 meq/L 3.5-5.1 (BEAKER) (test code = 379) CHLORIDE (BEAKER) 98 meq/L 98-107 (test code = 382) CO2 (BEAKER) 26 meq/L 22-29 (test code = 355) BLOOD UREA 17 mg/dL 7-21 NITROGEN (BEAKER) (test code = 354) CREATININE 0.55 mg/dL 0.57-1.25 L (BEAKER) (test code = 358) GLUCOSE RANDOM 78 mg/dL 70-105 (BEAKER) (test code = 652) CALCIUM (BEAKER) 8.7 mg/dL 8.4-10.2 (test code = 697) EGFR (BEAKER) 143 Interpretatio n of eGFR (test code = [...] not appl icable for dialysis patien ts Senior Solutions Consultant ID - PIAYA LCBC W/PLT COUNT & AUTO [id number] 06:53:15 Test Item Value Reference Range Interpretation Comments WHITE BLOOD CELL COUNT (BEAKER) 12.7 K/ L 3.5-10.5 H (test code = 775) RED BLOOD CELL COUNT (BEAKER) 4.35 M/ L 4.63-6.08 L (test code = 761) HEMOGLOBIN (BEAKER) (test code = 11.1 GM/DL 13.7-17.5 L 410) HEMATOCRIT (BEAKER) (test code = 36.3 % 40.1-51.0 L 411) MEAN CORPUSCULAR VOLUME (BEAKER) 83.4 fL 79.0-92.2 (test code = 753) MEAN CORPUSCULAR HEMOGLOBIN 25.5 pg 25.7-32.2 L (BEAKER) (test code = 751) MEAN CORPUSCULAR HEMOGLOBIN CONC 30.6 GM/DL 32.3-36.5 L (BEAKER) (test code = 752) RED CELL DISTRIBUTION WIDTH 17.2 % 11.6-14.4 H (BEAKER) (test code = 412) PLATELET COUNT (BEAKER) (test 310 K/CU MM 150-450 code = 756) MEAN [...] (test code = 437) NEUTROPHILS ABSOLUTE COUNT 9.12 K/ L 1.78-5.38 H (BEAKER) (test code = 670) LYMPHOCYTES ABSOLUTE COUNT 2.08 K/ L 1.32-3.57 (BEAKER) (test code = 414) MONOCYTES ABSOLUTE COUNT (BEAKER) 0.76 K/ L 0.30-0.82 (test code = 415) EOSINOPHILS ABSOLUTE COUNT 0.26 K/ L 0.04-0.54 (BEAKER) (test code = 416) BASOPHILS ABSOLUTE COUNT (BEAKER) 0.14 K/ L 0.01-0.08 H (test code = 417) IMMATURE GRANULOCYTES-RELATIVE 2 % 0-1 H PERCENT (BEAKER) (test code = 2801) PROTHROMBIN [id number] 06:23:20 Test Item Value Reference Range Interpretation Comments PROTIME (BEAKER) 14.1 seconds 11.9-14.2 (test code = 759) INR (BEAKER) (test 1.16 See_Comment [Automat ed message] code = 370) The system Cognitive Code generated this result transmitted ref erence range: <=5.90. The reference range was not used to int erpret this result as normal/abnormal . RECOMMENDED COUMADIN/WARFARIN INR THERAPY RANGESSTANDARD DOSE: 2.0 - 3.0 Includes: PROPHYLAXIS for venous thrombosis, systemic embolization; TREATMENT for venous thrombosis and/or pulmonary embolus.HIGH RISK: Target INR is 2.5-3.5 for patients with mechanical heart valves.CT, [id number] 11:26:00Unlisted Reason for Exam - Click Yes and Enter Reason Below->NoIs this for enterography?->NoWill this procedure require oral contrast?->Yes [facility] : 2000 Sex: MFINALREPORT ABDOMINAL AND PELVIS CT DATED 01/31/2022 COMPARISON: December 20, 2021 CLINICAL INFORMATION: Abdominal abscess/infection suspected TECHNIQUE: Axial images of the abdomen and pelvis were obtained from diaphragm to the pubic symphysis with GI and intravenous contrast. This exam was performed according to our departmental dose-optimization program, which includes automated exposure control, adjustment of the mA and/or kV according to patient size and/or use of interactive reconstruction technique. COMMENT: Liver and spleen are enlarged. Liver is enlarged measuring 18.1 in the right midclavicular line. Spleen measures approximately 13.3 x 5.6 x 9.9 cm. No focal lesion is seen in the liver. Calcified granulomas are seen in the spleen. Gallbladder is contracted. No gallstone or biliary dilatation is noted. There is persistent to inflammatory changes adjacent to the body and tail of the pancreas and left Gerota's fascia. A 2.6 x 6.8 cm air-fluid collection is seen in the gastrosplenic region, previously 2.9 x 7.1 cm. Previously noted pigtail drainage catheter in the right flank has been removed. There is minimal soft tissue stranding involving the right anterior Gerota's fascia. Both kidneys are normal in size and functioning. No hydronephrosis, hydroureter, urolithiasis is seen. The small and large bowel are unremarkable. Appendix is not visualized. Prostate is normal in size. The urinary bladder is contracted. No ascites is present. IMPRESSION: 1. Hepatosplenomegaly withcalcified granulomas in the spleen.2. Persistent soft tissue stranding/inflammation adjacent to the body and tail of the pancreas and bilateral Gerota's fascia.3. Minimal interval decrease in size of the air-fluid collection at the gastrolienal ligament. Signed: Gokul Young MDReport Verified Date/Time: 01/31/2022 11:26:33 Reading Location: [facility] B1 C013Y CT Body Reading Room BASIC METABOLIC [id number] 07:01:22 Test Item Value Reference Range Interpretation Comments SODIUM (BEAKER) 139 meq/L 136-145 (test code = 381) POTASSIUM 4.3 meq/L 3.5-5.1 Specimen slight ly (BEAKER) (test hemolyzed code = 379) CHLORIDE (BEAKER) 100 meq/L 98-107 (test code = 382) CO2 (BEAKER) 28 meq/L 22-29 (test code = 355) BLOOD UREA 11 mg/dL 7-21 NITROGEN (BEAKER) (test code = 354) CREATININE 0.60 mg/dL 0.57-1.25 Specimen slight ly (BEAKER) (test hemolyzed code = 358) GLUCOSE RANDOM 95 mg/dL 70-105 (BEAKER) (test code = 652) CALCIUM (BEAKER) 9.7 mg/dL 8.4-10.2 (test code = 697) EGFR (BEAKER) 140 Interpretatio n of eGFR (test code = [...] not appl icable for dialysis patien ts Senior Solutions Consultant ID - ALVINA [id number] 07:01:21 Test Item Value Reference Range Interpretation Comments PHOSPHORUS (BEAKER) 3.6 mg/dL 2.3-4.7 Specimen slightly (test code = 604) hemolyzed Senior Solutions Consultant ID - ALVINA MCBC W/PLT COUNT & AUTO [id number] 06:23:58 Test Item Value Reference Range Interpretation Comments WHITE BLOOD CELL COUNT (BEAKER) 15.5 K/ L 3.5-10.5 H (test code = 775) RED BLOOD CELL COUNT (BEAKER) 5.04 M/ L 4.63-6.08 (test code = 761) HEMOGLOBIN (BEAKER) (test code = 13.2 GM/DL 13.7-17.5 L 410) HEMATOCRIT (BEAKER) (test code = 40.8 % 40.1-51.0 411) MEAN CORPUSCULAR VOLUME (BEAKER) 81.0 fL 79.0-92.2 (test code = 753) MEAN CORPUSCULAR HEMOGLOBIN 26.2 pg 25.7-32.2 (BEAKER) (test code = 751) MEAN CORPUSCULAR HEMOGLOBIN CONC 32.4 GM/DL 32.3-36.5 (BEAKER) (test code = 752) RED CELL DISTRIBUTION WIDTH 17.5 % 11.6-14.4 H (BEAKER) (test code = 412) PLATELET COUNT (BEAKER) (test 408 K/CU MM 150-450 code = 756) MEAN PLATELET VOLUME (BEAKER) 9.9 fL 9.4-12.4 (test code = 754) NUCLEATED [...] (test code = 437) NEUTROPHILS ABSOLUTE COUNT 11.34 K/ L 1.78-5.38 H (BEAKER) (test code = 670) LYMPHOCYTES ABSOLUTE COUNT 2.52 K/ L 1.32-3.57 (BEAKER) (test code = 414) MONOCYTES ABSOLUTE COUNT (BEAKER) 0.79 K/ L 0.30-0.82 (test code = 415) EOSINOPHILS ABSOLUTE COUNT 0.30 K/ L 0.04-0.54 (BEAKER) (test code = 416) BASOPHILS ABSOLUTE COUNT (BEAKER) 0.17 K/ L 0.01-0.08 H (test code = 417) IMMATURE GRANULOCYTES-RELATIVE 2 % 0-1 H PERCENT (BEAKER) (test code = 2801) [id number] 07:03:32 Test Item Value Reference Range Interpretation Comments PHOSPHORUS (BEAKER) 3.5 mg/dL 2.3-4.7 Specimen slightly (test code = 604) hemolyzed Senior Solutions Consultant ID - MARIBEL LBASIC METABOLIC [id number] 07:03:32 Test Item Value Reference Range Interpretation Comments SODIUM (BEAKER) 136 meq/L 136-145 (test code = 381) POTASSIUM 4.5 meq/L 3.5-5.1 Specimen slight ly (BEAKER) (test hemolyzed code = 379) CHLORIDE (BEAKER) 99 meq/L 98-107 (test code = 382) CO2 (BEAKER) 29 meq/L 22-29 (test code = 355) BLOOD UREA 9 mg/dL 7-21 NITROGEN (BEAKER) (test code = 354) CREATININE 0.55 mg/dL 0.57-1.25 L Specimen slight ly (BEAKER) (test hemolyzed code = 358) GLUCOSE RANDOM 91 mg/dL 70-105 (BEAKER) (test code = 652) CALCIUM (BEAKER) 9.2 mg/dL 8.4-10.2 (test code = 697) EGFR (BEAKER) 143 Interpretatio n of eGFR (test code = [...] not appl icable for dialysis patien ts Senior Solutions Consultant ID - PIJOVI LCBC W/PLT COUNT & AUTO [id number] 06:30:07 Test Item Value Reference Range Interpretation Comments WHITE BLOOD CELL COUNT (BEAKER) 14.1 K/ L 3.5-10.5 H (test code = 775) RED BLOOD CELL COUNT (BEAKER) 4.61 M/ L 4.63-6.08 L (test code = 761) HEMOGLOBIN (BEAKER) (test code = 11.7 GM/DL 13.7-17.5 L 410) HEMATOCRIT (BEAKER) (test code = 37.5 % 40.1-51.0 L 411) MEAN CORPUSCULAR VOLUME (BEAKER) 81.3 fL 79.0-92.2 (test code = 753) MEAN CORPUSCULAR HEMOGLOBIN 25.4 pg 25.7-32.2 L (BEAKER) (test code = 751) MEAN CORPUSCULAR HEMOGLOBIN CONC 31.2 GM/DL 32.3-36.5 L (BEAKER) (test code = 752) RED CELL DISTRIBUTION WIDTH 16.3 % 11.6-14.4 H (BEAKER) (test code = 412) PLATELET COUNT (BEAKER) (test 383 K/CU MM 150-450 code = 756) MEAN [...] (test code = 437) NEUTROPHILS ABSOLUTE COUNT 10.40 K/ L 1.78-5.38 H (BEAKER) (test code = 670) LYMPHOCYTES ABSOLUTE COUNT 2.24 K/ L 1.32-3.57 (BEAKER) (test code = 414) MONOCYTES ABSOLUTE COUNT (BEAKER) 0.84 K/ L 0.30-0.82 H (test code = 415) EOSINOPHILS ABSOLUTE COUNT 0.21 K/ L 0.04-0.54 (BEAKER) (test code = 416) BASOPHILS ABSOLUTE COUNT (BEAKER) 0.14 K/ L 0.01-0.08 H (test code = 417) IMMATURE GRANULOCYTES-RELATIVE 2 % 0-1 H PERCENT (BEAKER) (test code = 2801) [id number] 08:28:15 Test Item Value Reference Range Interpretation Comments PHOSPHORUS (BEAKER) 3.5 mg/dL 2.3-4.7 Specimen slightly (test code = 604) hemolyzed Senior Solutions Consultant ID - SHREE WBASIC METABOLIC [id number] 05:22:30 Test Item Value Reference Range Interpretation Comments SODIUM (BEAKER) 137 meq/L 136-145 (test code = 381) POTASSIUM 4.0 meq/L 3.5-5.1 Specimen slight ly (BEAKER) (test hemolyzed code = 379) CHLORIDE (BEAKER) 100 meq/L 98-107 (test code = 382) CO2 (BEAKER) 29 meq/L 22-29 (test code = 355) BLOOD UREA 7 mg/dL 7-21 NITROGEN (BEAKER) (test code = 354) CREATININE 0.55 mg/dL 0.57-1.25 L Specimen slight ly (BEAKER) (test hemolyzed code = 358) GLUCOSE RANDOM 93 mg/dL 70-105 (BEAKER) (test code = 652) CALCIUM (BEAKER) 9.3 mg/dL 8.4-10.2 (test code = 697) EGFR (BEAKER) 143 Interpretatio n of eGFR (test code = [...] not appl icable for dialysis patien ts Senior Solutions Consultant ID - SHREE WCBC W/PLT COUNT & AUTO [id number] 04:54:08 Test Item Value Reference Range Interpretation Comments WHITE BLOOD CELL COUNT (BEAKER) 11.2 K/ L 3.5-10.5 H (test code = 775) RED BLOOD CELL COUNT (BEAKER) 4.80 M/ L 4.63-6.08 (test code = 761) HEMOGLOBIN (BEAKER) (test code = 12.0 GM/DL 13.7-17.5 L 410) HEMATOCRIT (BEAKER) (test code = 38.5 % 40.1-51.0 L 411) MEAN CORPUSCULAR VOLUME (BEAKER) 80.2 fL 79.0-92.2 (test code = 753) MEAN CORPUSCULAR HEMOGLOBIN 25.0 pg 25.7-32.2 L (BEAKER) (test code = 751) MEAN CORPUSCULAR HEMOGLOBIN CONC 31.2 GM/DL 32.3-36.5 L (BEAKER) (test code = 752) RED CELL DISTRIBUTION WIDTH 15.5 % 11.6-14.4 H (BEAKER) (test code = 412) PLATELET COUNT (BEAKER) (test 350 K/CU MM 150-450 code = 756) MEAN PLATELET VOLUME (BEAKER) 9.8 fL 9.4-12.4 (test code = 754) NUCLEATED RED BLOOD CELLS 0 /100 WBC 0-0 (BEAKER) (test code = 413) NEUTROPHILS RELATIVE PERCENT 71 % (BEAKER) (test code = 429) LYMPHOCYTES RELATIVE PERCENT 18 % (BEAKER) (test code = 430) MONOCYTES RELATIVE PERCENT 6 % (BEAKER) (test code = 431) EOSINOPHILS RELATIVE PERCENT 2 % (BEAKER) (test code = 432) BASOPHILS RELATIVE PERCENT 1 % (BEAKER) (test code = 437) NEUTROPHILS ABSOLUTE COUNT 8.02 K/ L 1.78-5.38 H (BEAKER) (test code = 670) LYMPHOCYTES ABSOLUTE COUNT 2.03 K/ L 1.32-3.57 (BEAKER) (test code = 414) MONOCYTES ABSOLUTE COUNT (BEAKER) 0.70 K/ L 0.30-0.82 (test code = 415) EOSINOPHILS ABSOLUTE COUNT 0.18 K/ L 0.04-0.54 (BEAKER) (test code = 416) BASOPHILS ABSOLUTE COUNT (BEAKER) 0.11 K/ L 0.01-0.08 H (test code = 417) IMMATURE GRANULOCYTES-RELATIVE 2 % 0-1 H PERCENT (BEAKER) (test code = 2801) BASIC METABOLIC [id number] 15:33:00 Test Item Value Reference Range Interpretation Comments SODIUM (BEAKER) 136 meq/L 136-145 (test code = 381) POTASSIUM 4.6 meq/L 3.5-5.1 Specimen slight ly (BEAKER) (test hemolyzed code = 379) CHLORIDE (BEAKER) 101 meq/L 98-107 (test code = 382) CO2 (BEAKER) 21 meq/L 22-29 L (test code = 355) BLOOD UREA 7 mg/dL 7-21 NITROGEN (BEAKER) (test code = 354) CREATININE 0.66 mg/dL 0.57-1.25 Specimen slight ly (BEAKER) (test hemolyzed code = 358) GLUCOSE RANDOM 163 mg/dL 70-105 H (BEAKER) (test code = [...] not appl icable for dialysis patien ts Senior Solutions Consultant ID - [id number] 15:32:59 Test Item Value Reference Range Interpretation Comments PHOSPHORUS (BEAKER) 2.1 mg/dL 2.3-4.7 L Specimen slightly (test code = 604) hemolyzed Senior Solutions Consultant ID - MITCHCBC W/PLT COUNT & AUTO [id number] 15:08:06 Test Item Value Reference Range Interpretation Comments WHITE BLOOD CELL COUNT (BEAKER) 11.2 K/ L 3.5-10.5 H (test code = 775) RED BLOOD CELL COUNT (BEAKER) 4.51 M/ L 4.63-6.08 L (test code = 761) HEMOGLOBIN (BEAKER) (test code = 11.4 GM/DL 13.7-17.5 L 410) HEMATOCRIT (BEAKER) (test code = 35.0 % 40.1-51.0 L 411) MEAN CORPUSCULAR VOLUME (BEAKER) 77.6 fL 79.0-92.2 L (test code = 753) MEAN CORPUSCULAR HEMOGLOBIN 25.3 pg 25.7-32.2 L (BEAKER) (test code = 751) MEAN CORPUSCULAR HEMOGLOBIN CONC 32.6 GM/DL 32.3-36.5 (BEAKER) (test code = 752) RED CELL DISTRIBUTION WIDTH 15.7 % 11.6-14.4 H (BEAKER) (test code = 412) PLATELET COUNT (BEAKER) (test 422 K/CU MM 150-450 code = 756) MEAN [...] (test code = 437) NEUTROPHILS ABSOLUTE COUNT 9.69 K/ L 1.78-5.38 H (BEAKER) (test code = 670) LYMPHOCYTES ABSOLUTE COUNT 0.99 K/ L 1.32-3.57 L (BEAKER) (test code = 414) MONOCYTES ABSOLUTE COUNT (BEAKER) 0.29 K/ L 0.30-0.82 L (test code = 415) EOSINOPHILS ABSOLUTE COUNT 0.03 K/ L 0.04-0.54 L (BEAKER) (test code = 416) BASOPHILS ABSOLUTE COUNT (BEAKER) 0.08 K/ L 0.01-0.08 (test code = 417) IMMATURE GRANULOCYTES-RELATIVE 1 % 0-1 PERCENT (BEAKER) (test code = 2801) SARS-COV2/RT-PCR ([facility])2022-01-27 12:45:59 Test Item Value Reference Range Interpretation Comments SARS-COV2/RT-PCR Negative Negative The SARS-Co V-2 target (test code = nucleic acids a re not [id number]) detected in thi s specimen. Negative result [...] revoked sooner. Fact Sheet for Healthcare Providers: https://www.[employer] m/Documents/Xpert%20Xpress%20SARS%20CoV-2/Fact%20Sheets/302-3802%59QFTG-ZDW-5%20 HEALTHCARE%20PROVIDERS%20FACT%20SHEET.pdf Fact Sheet for Healthcare Patients: https://www.[employer]/Documents/Xpert%20Xp ress%20SARS%20CoV-2/Fact%20Sheets/3023801%80QHAH-HEB-7%20PATIENT%20FACT%20SHEET .pdfCOMPREHENSIVE METABOLIC [id number] 09:49:55 Test Item Value Reference Range Interpretation Comments TOTAL PROTEIN 6.0 gm/dL 6.0-8.3 (BEAKER) (test code = 770) ALBUMIN (BEAKER) 2.8 g/dL 3.5-5.0 L (test code = 1145) ALKALINE 46 U/L 40-150 PHOSPHATASE (BEAKER) (test code = 346) BILIRUBIN TOTAL 0.2 mg/dL 0.2-1.2 (BEAKER) (test code = 377) SODIUM (BEAKER) 139 meq/L 136-145 (test code = 381) POTASSIUM (BEAKER) 4.0 meq/L 3.5-5.1 (test code = 379) CHLORIDE (BEAKER) 105 meq/L 98-107 (test code = 382) CO2 (BEAKER) (test 26 meq/L 22-29 code = 355) BLOOD UREA 6 mg/dL 7-21 L NITROGEN (BEAKER) (test code = 354) CREATININE 0.56 mg/dL 0.57-1.25 L (BEAKER) (test code = 358) GLUCOSE RANDOM 80 mg/dL 70-105 (BEAKER) (test code = 652) CALCIUM (BEAKER) 8.5 mg/dL 8.4-10.2 (test code = 697) AST (SGOT) 14 U/L 5-34 (BEAKER) (test code = 353) ALT (SGPT) < U/L 6-55 L (BEAKER) (test code = 347) EGFR (BEAKER) 142 Interpretatio n of eGFR (test code = 1092) mL/min/1.[address] age Description sq m Result G1 Kiley l or [...] not appl icable for dialysis patien ts [employer] Consultant ID - ALVINA MOperator ID - ALVINA [id number] 09:45:42 Test Item Value Reference Range Interpretation Comments MAGNESIUM (BEAKER) (test code = 1.6 mg/dL 1.6-2.6 627) [employer] Consultant ID - ALVINA [id number] 09:45:42 Test Item Value Reference Range Interpretation Comments PHOSPHORUS (BEAKER) (test code = 2.2 mg/dL 2.3-4.7 L 604) Senior Solutions Consultant ID - ALVINA MCBC W/PLT COUNT & AUTO [id number] 06:05:25 Test Item Value Reference Range Interpretation Comments WHITE BLOOD CELL COUNT (BEAKER) 8.2 K/ L 3.5-10.5 (test code = 775) RED BLOOD CELL COUNT (BEAKER) 4.24 M/ L 4.63-6.08 L (test code = 761) HEMOGLOBIN (BEAKER) (test code = 10.6 GM/DL 13.7-17.5 L 410) HEMATOCRIT (BEAKER) (test code = 33.0 % 40.1-51.0 L 411) MEAN CORPUSCULAR VOLUME (BEAKER) 77.8 fL 79.0-92.2 L (test code = 753) MEAN CORPUSCULAR HEMOGLOBIN 25.0 pg 25.7-32.2 L (BEAKER) (test code = 751) MEAN CORPUSCULAR HEMOGLOBIN CONC 32.1 GM/DL 32.3-36.5 L (BEAKER) (test code = 752) RED CELL DISTRIBUTION WIDTH 15.7 % 11.6-14.4 H (BEAKER) (test code = 412) PLATELET COUNT (BEAKER) (test 380 K/CU MM 150-450 code = 756) MEAN PLATELET VOLUME (BEAKER) 10.3 fL 9.4-12.4 (test code = 754) NUCLEATED RED BLOOD CELLS 0 /100 WBC 0-0 (BEAKER) (test code = 413) NEUTROPHILS RELATIVE PERCENT 72 % (BEAKER) (test code = 429) LYMPHOCYTES RELATIVE PERCENT 19 % (BEAKER) (test code = 430) MONOCYTES RELATIVE PERCENT 6 % (BEAKER) (test code = 431) EOSINOPHILS RELATIVE PERCENT 1 % (BEAKER) (test code = 432) BASOPHILS RELATIVE PERCENT 1 % (BEAKER) (test code = 437) NEUTROPHILS ABSOLUTE COUNT 5.86 K/ L 1.78-5.38 H (BEAKER) (test code = 670) LYMPHOCYTES ABSOLUTE COUNT 1.58 K/ L 1.32-3.57 (BEAKER) (test code = 414) MONOCYTES ABSOLUTE COUNT (BEAKER) 0.51 K/ L 0.30-0.82 (test code = 415) EOSINOPHILS ABSOLUTE COUNT 0.08 K/ L 0.04-0.54 (BEAKER) (test code = 416) BASOPHILS ABSOLUTE COUNT (BEAKER) 0.05 K/ L 0.01-0.08 (test code = 417) IMMATURE GRANULOCYTES-RELATIVE 1 % 0-1 PERCENT (BEAKER) (test code = 2801) RAD, KNEE, 3 VIEWS, [id number] 14:50:00Is this procedure to be performed with weight bearing?->Non-Weight BearingReason for exam:->knee pain [facility] CENTERName: VANGIE OVALLE : 2000 Sex: MFINAL REPORT RAD, KNEE, 3 VIEWS, RIGHT CLINICAL INDICATION: knee pain COMPARISON: NoneFINDINGS: 3views of the right knee. There is no fracture or malalignment. Moderate joint space narrowing in the femorotibial spaces. No joint fluid is demonstrated. Surrounding soft tissues are unremarkable. IMPRESSION: No acute fracture or malalignment of the knee Signed: Lew Garcia [facility] Verified Date/Time: 01/26/2022 14:50:13 Reading Location: [address] Reading Room RAD, KNEE, 3 VIEWS, [id number] 14:00:00Is this procedure to be performed with weight bearing?->Non-Weight BearingReason for exam:->knee pain [facility] CENTERName: VANGIE OVALLE : 2000 Sex: MFINAL REPORT RAD, KNEE, 3 VIEWS, LEFT CLINICAL INDICATION: knee pain COMPARISON: None FINDINGS: 3views of the left knee. There is no fracture or malalignment. The femorotibial and femoropatellar joint spaces are intact. Small subpatellar joint effusion. Surrounding soft tissues are unremarkable. IMPRESSION: 1. No acute fracture or malalignment of the knee2.Small suprapatellar joint effusion. Signed: Lew Garcia MDReport Verified Date/Time: 01/26/2022 14:00:42 Reading Location: [address] Reading Room ANTI-DNA [id number] 12:29:53 Test Item Value Reference Range Interpretation Comments ANTI-DNA TITER (BEAKER) (test code = :160 1553) DOUBLE-STRANDED DNA (DSDNA) [id number] 12:29:42 Test Item Value Reference Range Interpretation Comments ANTI-DNA DS (BEAKER) (test code = Positive Negative 1055) COMPLEMENT COMPONENT [id number] 12:26:40 Test Item Value Reference Range Interpretation Comments C3 COMPLEMENT (BEAKER) (test code = 55 mg/dL 82-193 L 393) Senior Solutions Consultant ID - TANYA MCOMPLEMENT COMPONENT [id number] 12:26:39 Test Item Value Reference Range Interpretation Comments C4 COMPLEMENT (BEAKER) (test code = 6 mg/dL 15-57 L 394) Senior Solutions Consultant ID - TANYA MHEMOGLOBIN [id number] 09:30:34 Test Item Value Reference Range Interpretation Comments HEMOGLOBIN A1C 5.0 % See_Comment [Automated m essage] ELECTROPHORESIS ([facility]) The system which (test code = 3811) generated this result transmitted ref erence range: <=5.6%. The reference range was not used to int erpret this result as normal/abnormal . "The A1c is measured using a NGSP-certified method. HbA1c value equal to or greater than 6.5% as thediagnosis cutoff for diabetes. An HbA1c value of 5.7- 6.4% indicates increased risk for diabetes (prediabetes)."Senior Solutions Consultant ID - [id number] 07:56:27 Test Item Value Reference Range Interpretation Comments MAGNESIUM (BEAKER) (test code = 1.9 mg/dL 1.6-2.6 627) Senior Solutions Consultant ID - ALVINA [id number] 07:56:27 Test Item Value Reference Range Interpretation Comments PHOSPHORUS (BEAKER) (test code = 3.5 mg/dL 2.3-4.7 604) Senior Solutions Consultant BEATRIZ TINSLEY OMPREHENSIVE METABOLIC [id number] 07:56:26 Test Item Value Reference Range Interpretation Comments TOTAL PROTEIN 5.7 gm/dL 6.0-8.3 L (BEAKER) (test code = 770) ALBUMIN (BEAKER) 2.6 g/dL 3.5-5.0 L (test code = 1145) ALKALINE 49 U/L 40-150 PHOSPHATASE (BEAKER) (test code = 346) BILIRUBIN TOTAL 0.3 mg/dL 0.2-1.2 (BEAKER) (test code = 377) SODIUM (BEAKER) 138 meq/L 136-145 (test code = 381) POTASSIUM (BEAKER) 3.6 meq/L 3.5-5.1 (test code = 379) CHLORIDE (BEAKER) 105 meq/L 98-107 (test code = 382) CO2 (BEAKER) (test 25 meq/L 22-29 code = 355) BLOOD UREA 5 mg/dL 7-21 L NITROGEN (BEAKER) (test code = 354) CREATININE 0.57 mg/dL 0.57-1.25 (BEAKER) (test code = 358) GLUCOSE RANDOM 90 mg/dL 70-105 (BEAKER) (test code = 652) CALCIUM (BEAKER) 8.2 mg/dL 8.4-10.2 L (test code = 697) AST (SGOT) 12 U/L 5-34 (BEAKER) (test code = 353) ALT (SGPT) 7 U/L 6-55 (BEAKER) (test code = 347) EGFR (BEAKER) 142 Interpretatio n of eGFR (test code = 1092) mL/min/1.73 values S tage Description sq m Result G1 Kiley l or [...] not appl icable for dialysis patien ts Senior Solutions Consultant ID - ALVINA MCBC W/PLT COUNT & AUTO [id number] 06:42:48 Test Item Value Reference Range Interpretation Comments WHITE BLOOD CELL COUNT (BEAKER) 8.4 K/ L 3.5-10.5 (test code = 775) RED BLOOD CELL COUNT (BEAKER) 3.99 M/ L 4.63-6.08 L (test code = 761) HEMOGLOBIN (BEAKER) (test code = 9.9 GM/DL 13.7-17.5 L 410) HEMATOCRIT (BEAKER) (test code = 32.0 % 40.1-51.0 L 411) MEAN CORPUSCULAR VOLUME (BEAKER) 80.2 fL 79.0-92.2 (test code = 753) MEAN CORPUSCULAR HEMOGLOBIN 24.8 pg 25.7-32.2 L (BEAKER) (test code = 751) MEAN CORPUSCULAR HEMOGLOBIN CONC 30.9 GM/DL 32.3-36.5 L (BEAKER) (test code = 752) RED CELL DISTRIBUTION WIDTH 15.6 % 11.6-14.4 H (BEAKER) (test code = 412) PLATELET COUNT (BEAKER) (test 359 K/CU MM 150-450 code = 756) MEAN [...] (test code = 437) NEUTROPHILS ABSOLUTE COUNT 6.12 K/ L 1.78-5.38 H (BEAKER) (test code = 670) LYMPHOCYTES ABSOLUTE COUNT 1.37 K/ L 1.32-3.57 (BEAKER) (test code = 414) MONOCYTES ABSOLUTE COUNT (BEAKER) 0.59 K/ L 0.30-0.82 (test code = 415) EOSINOPHILS ABSOLUTE COUNT 0.13 K/ L 0.04-0.54 (BEAKER) (test code = 416) BASOPHILS ABSOLUTE COUNT (BEAKER) 0.07 K/ L 0.01-0.08 (test code = 417) IMMATURE GRANULOCYTES-RELATIVE 1 % 0-1 PERCENT (BEAKER) (test code = 2801) Urinalysis w/[id number] 01:12:24 Test Item Value Reference Range Interpretation Comments Color, UA (test code Yellow = 5778-6) Clarity, UA (test Clear code = 5767-9) Specific [place], UA 1.017 1.001-1.035 (test code = 5811-5) pH, UA (test code = 6.0 5.0-8.0 5803-2) Protein, UA (test Negative Negative code = 49053-8) Glucose, UA (test Negative Negative code = 365) Ketones, UA (test Trace Negative A code = 2514-8) Bilirubin, UA (test Negative Negative code = 33591-4) Blood, UA (test code Negative Negative = 64438-2) Nitrite, UA (test Negative Negative code = 5802-4) Leukocytes, UA (test Negative Negative code = 5799-2) Urobilinogen, UA 3.0 mg/dL 0.2-1.0 H (test code = 33286-0) RBC, UA (test code = 1 See_Comment [Autom ated 61123-6) message] The system which generated this result transmit hernandez reference range : /HPF. The reference range was not used to interpret this result as normal/abnormal . WBC, UA (test code = 1 See_Comment [Autom ated 5821-4) message] The system which generated this result transmit hernandez reference range : /HPF. The reference range was not used to interpret this result as normal/abnormal . Bacteria, UA (test None Seen code = 81655-6) Mucus (test code = Few 8247-9) Crystals, Urine (test Rare code = 57048-5) Specimen Source (test code = 2795) IDALIA (test code = IDALIA) Senior Solutions Consultant ID - [auto]Senior Solutions Consultant ID - tech Lab Interpretation Abnormal (test code = 24986-7) [facility] [id number] 01:12:24 Test Item Value Reference Range Interpretation Comments COLOR (BEAKER) (test code = 470) Yellow CLARITY (BEAKER) (test code = 469) Clear SPECIFIC GRAVITY UA (BEAKER) (test 1.017 1.001-1.035 code = 468) PH UA (BEAKER) [...] = 466) UROBILINOGEN UA (BEAKER) (test code 3.0 mg/dL 0.2-1.0 H = 463) RBC UA (BEAKER) (test code = 519) 1 /HPF WBC UA (BEAKER) (test code = 520) 1 /HPF BACTERIA (BEAKER) (test code = 517) None Seen MUCUS (BEAKER) (test code = 1574) Few CRYSTALS, URINE (BEAKER) (test code Rare = 1521) SOURCE(BEAKER) (test code = 2795) Senior Solutions Consultant ID - [auto]Senior Solutions Consultant ID - techPROTHROMBIN TIME/[id number] 11:13:08 Test Item Value Reference Range Interpretation Comments PROTIME (BEAKER) 16.0 seconds 11.9-14.2 H (test code = 759) INR (BEAKER) (test 1.37 See_Comment [Automat ed message] code = 370) The system [employer] generated this result transmitted ref erence range: <=5.90. The reference range was not used to int erpret this result as normal/abnormal . RECOMMENDED COUMADIN/WARFARIN INR THERAPY RANGESSTANDARD DOSE: 2.0 - 3.0 Includes: PROPHYLAXIS for venous thrombosis, systemic embolization; TREATMENT for venous thrombosis and/or pulmonary embolus.HIGH RISK: Target INR is 2.5-3.5 for patients with mechanical heart valves.HEPATIC FUNCTION [id number] 08:23:09 Test Item Value Reference Range Interpretation Comments TOTAL PROTEIN (BEAKER) 6.4 gm/dL 6.0-8.3 Speci men slightly (test code = 770) hemolyzed ALBUMIN (BEAKER) (test 2.9 g/dL 3.5-5.0 L Speci men slightly code = 1145) hemolyzed BILIRUBIN TOTAL 0.5 mg/dL 0.2-1.2 Specimen sli ghtly (BEAKER) (test code = hemoly zed 377) BILIRUBIN DIRECT 0.3 mg/dL 0.1-0.5 Specimen sl ightly (BEAKER) (test code = hemoly zed 706) ALKALINE PHOSPHATASE 55 U/L 40-150 (BEAKER) (test code = 346) AST (SGOT) (BEAKER) 18 U/L 5-34 Specimen slightly (test code = 353) hemolyzed ALT (SGPT) (BEAKER) < U/L 6-55 L Specimen slightly (test code = 347) hemolyzed Senior Solutions Consultant ID - ALVINA [id number] 08:20:14 Test Item Value Reference Range Interpretation Comments PHOSPHORUS (BEAKER) 4.9 mg/dL 2.3-4.7 H Specimen slightly (test code = 604) hemolyzed Senior Solutions Consultant ID - ALVINA [id number] 08:20:14 Test Item Value Reference Range Interpretation Comments MAGNESIUM (BEAKER) 1.5 mg/dL 1.6-2.6 L Specimen slightly (test code = 627) hemolyzed Senior Solutions Consultant ID - ALVINA MLACTIC ACID, [id number] 07:47:42 Test Item Value Reference Range Interpretation Comments LACTATE BLOOD VENOUS 1.04 mmol/L 0.50-2.20 Specime n slightly (2) (BEAKER) (test hemolyzed code = 6042) Senior Solutions Consultant ID - ALVINA MBASIC METABOLIC [id number] 07:28:57 Test Item Value Reference Range Interpretation Comments SODIUM (BEAKER) 138 meq/L 136-145 (test code = 381) POTASSIUM 3.6 meq/L 3.5-5.1 Specimen slight ly (BEAKER) (test hemolyzed code = 379) CHLORIDE (BEAKER) 105 meq/L 98-107 (test code = 382) CO2 (BEAKER) 24 meq/L 22-29 (test code = 355) BLOOD UREA 4 mg/dL 7-21 L NITROGEN (BEAKER) (test code = 354) CREATININE 0.67 mg/dL 0.57-1.25 Specimen slight ly (BEAKER) (test hemolyzed code = 358) GLUCOSE RANDOM 88 mg/dL 70-105 (BEAKER) (test code = 652) [...] not appl icable for dialysis patien ts Senior Solutions Consultant ID - ALVINA MPT/[id number] 07:01:08 Test Item Value Reference Range Interpretation Comments PROTIME (BEAKER) (test 16.3 seconds 11.9-14.2 H code = 759) INR (BEAKER) (test 1.40 See_Comment [Automat ed code = 370) message] The sy stem which generated this result transmitted reference range : <=5.90. The reference range was not used to interpret this result as normal/abnormal . PARTIAL THROMBOPLASTIN 33.3 seconds 22.5-36.0 TIME (BEAKER) (test code = 760) RECOMMENDED COUMADIN/WARFARIN INR THERAPY RANGESSTANDARD DOSE: 2.0 - 3.0 Includes: PROPHYLAXIS for venous thrombosis, systemic embolization; TREATMENT for venous thrombosis and/or pulmonary embolus.HIGH RISK: Target INR is 2.5-3.5 for patients with mechanical heart valves.CBC W/PLT COUNT & AUTO [id number] 06:52:58 Test Item Value Reference Range Interpretation Comments WHITE BLOOD CELL COUNT (BEAKER) 11.3 K/ L 3.5-10.5 H (test code = 775) RED BLOOD CELL COUNT (BEAKER) 4.27 M/ L 4.63-6.08 L (test code = 761) HEMOGLOBIN (BEAKER) (test code = 10.9 GM/DL 13.7-17.5 L 410) HEMATOCRIT (BEAKER) (test code = 33.5 % 40.1-51.0 L 411) MEAN CORPUSCULAR VOLUME (BEAKER) 78.5 fL 79.0-92.2 L (test code = 753) MEAN CORPUSCULAR HEMOGLOBIN 25.5 pg 25.7-32.2 L (BEAKER) (test code = 751) MEAN CORPUSCULAR HEMOGLOBIN CONC 32.5 GM/DL 32.3-36.5 (BEAKER) (test code = 752) RED CELL DISTRIBUTION WIDTH 15.8 % 11.6-14.4 H (BEAKER) (test code = 412) PLATELET COUNT (BEAKER) (test 347 K/CU MM 150-450 code = 756) MEAN PLATELET VOLUME (BEAKER) 10.3 fL 9.4-12.4 (test code = 754) NUCLEATED RED BLOOD CELLS 0 /100 WBC 0-0 (BEAKER) (test code = 413) NEUTROPHILS RELATIVE PERCENT 78 % (BEAKER) (test code = 429) LYMPHOCYTES RELATIVE PERCENT 11 % (BEAKER) (test code = 430) MONOCYTES RELATIVE PERCENT 7 % (BEAKER) (test code = 431) EOSINOPHILS RELATIVE PERCENT 3 % (BEAKER) (test code = 432) BASOPHILS RELATIVE PERCENT 1 % (BEAKER) (test code = 437) NEUTROPHILS ABSOLUTE COUNT 8.80 K/ L 1.78-5.38 H (BEAKER) (test code = 670) LYMPHOCYTES ABSOLUTE COUNT 1.27 K/ L 1.32-3.57 L (BEAKER) (test code = 414) MONOCYTES ABSOLUTE COUNT (BEAKER) 0.73 K/ L 0.30-0.82 (test code = 415) EOSINOPHILS ABSOLUTE COUNT 0.29 K/ L 0.04-0.54 (BEAKER) (test code = 416) BASOPHILS ABSOLUTE COUNT (BEAKER) 0.09 K/ L 0.01-0.08 H (test code = 417) IMMATURE GRANULOCYTES-RELATIVE 1 % 0-1 PERCENT (BEAKER) (test code = 2801) SARS-CoV2/RT-PCR (Asymptomatic ONLY)2021-12-25 10:50:35 Test Item Value Reference Range Interpretation Comments SARS-COV2/RT-PCR Negative Not Detected, (test code = Negative, See 28074-0) external report for linked test SARS-COV-2 [facility] PERFORMING LAB (test code = 93647-7) IDALIA (test code = Negative result for this IDALIA) test determines that SARS-CoV-2 RNA was not [...] of the Act. Fact Sheet for Healthcare Providers:https://www.Spondo [employer]brid [employer]/sites/default/f anup/product/documents/F act_Sheet_HC_Providers_L czv_EJLK-EnD-2.pdf Fact Sheet for Healthcare Patients:https://www.easy2comply ([employer]).[employer]/sites/default/fi les/product/documents/Fa ct_Sheet_Patients_Lyra_S ARS-CoV-2.pdf Performing Laboratory:[place] [address] [place] [address] [facility])2021-12-25 10:50:35 Test Item Value Reference Range Interpretation Comments SARS-COV2/RT-PCR (test Negative Not Detected, Negative, code = 6433712) See external report for linked test SARS-COV-2 PERFORMING LAB [facility] (test code = 2597405) Negative result for this test determines that [...] of the Act.Fact Sheet for Healthcare Prov iders:https://www.[employer]Build/sites/default/files/product/documents/Fact_Sheet_HC _Wkekochlx_Efcl_JQAW-ObP-2.pdfFact Sheet for Healthcare Patients:https://www.Obvious.[employer]/sites/default/files/product/docume nts/Jzbq_Yspep_Xqpflxjo_Dbwf_OQCJ-UfC-6.pdfPerforming Laboratory:[facility], [place] [address]UUICI METABOLIC PANEL 2021-12-25 05:39:15 Test Item Value [...] not appl icable for dialysis patien ts Senior Solutions Consultant ID - PIAYA LCBC W/PLT COUNT & AUTO [id number] 04:50:53 Test Item Value Reference Range Interpretation [...] (BEAKER) (test code = 2801) BASIC METABOLIC [id number] 04:18:37 Test Item Value Reference Range Interpretation [...] not appl icable for dialysis patien ts Senior Solutions Consultant ID - ALVINA MCBC W/PLT COUNT & AUTO [id number] 04:02:11 Test Item Value Reference Range Interpretation [...] (BEAKER) (test code = 2801) BASIC METABOLIC [id number] 03:48:40 Test Item Value Reference Range Interpretation [...] not appl icable for dialysis patien ts Senior Solutions Consultant ID - BSCBC W/PLT COUNT & AUTO [id number] 03:25:33 Test Item Value Reference Range Interpretation [...] (BEAKER) (test code = 2801) COMPLEMENT COMPONENT [id number] 05:12:57 Test Item Value Reference Range Interpretation Comments C3 COMPLEMENT (BEAKER) (test code = 58 mg/dL 82-193 L 393) Senior Solutions Consultant ID - PIAYA LCOMPLEMENT COMPONENT [id number] 05:12:56 Test Item Value Reference Range Interpretation Comments C4 COMPLEMENT (BEAKER) (test code = 5 mg/dL 15-57 L 394) Senior Solutions Consultant ID - PIAYA LBASIC METABOLIC [id number] 04:43:01 Test Item Value Reference Range Interpretation [...] not appl icable for dialysis patien ts Senior Solutions Consultant ID - ALVINA M-CBC W/PLT COUNT & AUTO [id number] 04:23:52 Test Item Value Reference Range Interpretation [...] (BEAKER) (test code = 2801) BASIC METABOLIC [id number] 06:45:19 Test Item Value Reference Range Interpretation [...] not appl icable for dialysis patien ts Senior Solutions Consultant ID - PIAYA LCBC W/PLT COUNT & AUTO [id number] 06:29:46 Test Item Value Reference Range Interpretation [...] PERCENT (BEAKER) (test code = 2801) CT, [id number] 15:01:00Unlisted Reason for Exam - Click Yes and Enter Reason Below->Nointraabdominal abscessesIs this for enterography?->NoWill this procedure require oral contrast?->Yes [facility] 2000 Sex: MFINAL [...] Hadley MDReportVerified Date/Time: 12/20/2021 15:01:52 Reading Location: [address] Ortho Consult Reading Room Jelly ctronically signed by: NEVIN HADLEY M.D. on 12/20/2021 03:01 PMBASIC METABOLIC [id number] 06:08:38 Test Item Value Reference Range Interpretation [...] not appl icable for dialysis patien ts Senior Solutions Consultant ID - BISI [id number] 06:08:38 Test Item Value Reference Range Interpretation Comments MAGNESIUM (BEAKER) (test code = 1.7 mg/dL 1.6-2.6 627) Senior Solutions Consultant ID - BISI GCBC W/PLT COUNT & AUTO [id number] 05:55:13 Test Item Value Reference Range Interpretation [...] 0-1 PERCENT (BEAKER) (test code = 2801) [id number] 05:57:20 Test Item Value Reference Range Interpretation Comments MAGNESIUM (BEAKER) (test code = 1.8 mg/dL 1.6-2.6 627) Senior Solutions Consultant ID - PIAYA LBASIC METABOLIC [id number] 05:57:19 Test Item Value Reference Range Interpretation [...] not appl icable for dialysis patien ts Senior Solutions Consultant ID - PIAYA LCBC W/PLT COUNT & AUTO [id number] 05:05:06 Test Item Value Reference Range Interpretation [...] 0-1 PERCENT (BEAKER) (test code = 2801) [id number] 05:14:32 Test Item Value Reference Range Interpretation Comments MAGNESIUM (BEAKER) (test code = 1.6 mg/dL 1.6-2.6 627) Senior Solutions Consultant ID - DBBASIC METABOLIC [id number] 05:14:31 Test Item Value Reference Range Interpretation [...] not appl icable for dialysis patien ts Senior Solutions Consultant ID - DBCBC W/PLT COUNT & AUTO [id number] 04:29:19 Test Item Value Reference Range Interpretation [...] PERCENT (BEAKER) (test code = 2801) SARS-COV2/RT-PCR ([facility])2021-12-18 02:02:45 Test Item Value Reference Range Interpretation Comments SARS-COV2/RT-PCR (test Negative Not Detected, Negative, code = 8550603) See external report for linked test SARS-COV-2 PERFORMING LAB [facility] (test code = 2600487) Negative result for this test determines that [...] of the Act.Fact Sheet for Healthcare Prov iders:https://www.Obvious.[employer]/sites/default/files/product/documents/Fact_Sheet_HC _Bwhugxhdr_Ctih_DKXN-ViZ-4.pdfFact Sheet for Healthcare Patients:https://www.SwarmBuild/sites/default/files/product/docume nts/Qhnz_Smzbf_Jdmnuudt_Esfa_AAVK-NgV-2.pdfPerforming Laboratory:[facility], [place] [address]FOEQEOBK KINASE (CK) 2021-12-17 07:03:15 Test Item Value Reference Range Interpretation Comments CREATINE KINASE TOTAL (BEAKER) (test < U/L 29-200 L code = 380) Senior Solutions Consultant ID - BISI GBASIC METABOLIC [id number] 06:48:47 Test Item Value Reference Range Interpretation [...] decreased 60-89 G3a Mildl y to moderately 45- 59 G3b Moderately to s everely 30-44 G4 Severl y decreased 15-29 G5 Kidney failure <15Reported eGF R is based on the CKD-EPI 2020 equation that d oes not use a race coefficientEsti mated GFR is not as accur ate as Creatinine Kari harrison in predicting glom erular filtration rate . Estimated GFR is not appl icable for dialysis patien ts Senior Solutions Consultant ID - BISI [id number] 06:48:47 Test Item Value Reference Range Interpretation Comments MAGNESIUM (BEAKER) (test code = 1.7 mg/dL 1.6-2.6 627) Senior Solutions Consultant ID - BISI GCBC W/PLT COUNT & AUTO [id number] 06:18:24 Test Item Value Reference Range Interpretation [...] (BEAKER) (test code = 2801) HEPATIC FUNCTION [id number] 05:37:52 Test Item Value Reference Range Interpretation [...] (test code = 22 U/L 6-55 347) Senior Solutions Consultant ID - ALVINA MBASIC METABOLIC [id number] 05:37:51 Test Item Value Reference Range Interpretation [...] not appl icable for dialysis patien ts Senior Solutions Consultant ID - ALVINA [id number] 05:37:51 Test Item Value Reference Range Interpretation Comments MAGNESIUM (BEAKER) (test code = 1.8 mg/dL 1.6-2.6 627) Senior Solutions Consultant ID - ALVINA MCBC W/PLT COUNT & AUTO [id number] 05:19:35 Test Item Value Reference Range Interpretation [...] code = 2801) WOUND CULTURE + GRAM [id number] 15:11:36 Test Item Value Reference Range Interpretation [...] d message] code = 143) The system whic h generated this result transmitted ref erence range: Suscepti ble 0-2 , Dose Depe ndent Susceptible <0 or >2 , Resi. The ref erence range was not u sed to interpret this result as normal/abnor mal. Itraconazole (test See_Comment S [Automat ed message] code = 146) The system [facility] [employer] generated this result transmitted ref erence range: Suscepti ble 0-0.125 , Dose Dependent Susce ptible <0 or >.125. Th e reference range was not used to int erpret this result as normal/abnormal . Micafungin (test See_Comment S [Automated message] code = 148) The system [facility] generated this result transmitted ref erence range: Suscepti ble 0-0.25 , Non-susceptible <0 or >.25 , Resistan t . The reference r [place] was not used to interpret this result as normal/abnor mal. Posaconazole (test See_Comment [Automat ed message] code = 152) The system [facility] [employer] generated this result transmitted ref erence range: Suscepti ble >0-0 , No Interpretations Established <=0 or >0 . The reference range was not used to interpret this result as normal/abnor mal. Voriconazole (test See_Comment S [Automat ed message] code = 153) The system [facility] [employer] generated this result transmitted ref erence range: [...] d message] code = 143) The system [facility] [employer] generated this result transmitted ref erence range: Suscepti ble 0-0 , Dose Depe ndent Susceptible <0 or >0 , Resi. The ref erence range was not u sed to interpret this result as normal/abnor mal. Itraconazole (test See_Comment [Automat ed message] code = 146) The system [employer] generated this result transmitted ref erence range: Suscepti ble 0-0.125 , Dose Dependent Susce ptible <0 or >.125. Th e reference range was not used to int erpret this result as normal/abnormal . Micafungin (test See_Comment S [Automated message] code = 148) The system Tasspass generated this result transmitted ref erence range: Suscepti ble 0-0.06 , Non-susceptible <0 or >.06 , Resistan t . The reference r colby was not used to interpret this result as normal/abnor mal. Posaconazole (test See_Comment [Automat ed message] code = 1522) The system Tasspass generated this result transmitted ref erence range: Suscepti ble >0-0 , No Interpretations Established <=0 or >0 . The reference range was not used to interpret this result as normal/abnor mal. Voriconazole (test See_Comment [Automat ed message] code = 153) The system [facility] [employer] generated this result transmitted ref erence range: Suscepti ble >0-0 , Dose Dep endent Susceptible <=0 or >0 , No. The refer ence range was not u sed to interpret this result as normal/abnor mal. GRAM STAIN RESULT 4+ WBCs (BEAKER) (test code = 1123) GRAM STAIN RESULT <1+ budding (BEAKER) (test code yeast = 871783) [id number] 13:41:55 Test Item Value Reference Range Interpretation Comments MAGNESIUM (BEAKER) 1.6 mg/dL 1.6-2.6 Specimen slightly (test code = 627) hemolyzed Senior Solutions Consultant ID - BSBASIC METABOLIC [id number] 13:41:55 Test Item Value Reference Range Interpretation [...] not appl icable for dialysis patien ts Senior Solutions Consultant ID - BSCBC (HEMOGRAM ONLY)2021-12-15 12:10:46 Test [...] = 413) RAD, CHEST, 1 VIEW, NON [id number] 11:09:00Reason for exam:->PICC tip location verification.Should this be performed at the bedside?->Yes [facility] : 2000 Sex: MFINAL REPORT CLINICAL HISTORY:PICC tip location verification. TECHNIQUE: 1 view of thechest. COMPARISON: 09/28/2021 IMPRESSION: The tip of the right PICC line is at the cavoatrial junction. There are no focal infiltrates or effusions. The cardiomediastinal silhouette is within normal limits for size. Signed: Darcie Williamsone[facility] Verified Date/Time: 12/15/2021 11:09:16 Reading Location: [facility] Radiology Reading Room [id number] 07:04:44 Test Item Value Reference Range Interpretation Comments MAGNESIUM (BEAKER) (test code = 1.8 mg/dL 1.6-2.6 627) Senior Solutions Consultant ID - SHREE WCT, [id number] 13:51:00Unlisted Reason for Exam - Click Yes and Enter Reason Below->NoIs this for enterography?->NoWill this procedure require oral contrast?->No [facility] : 2000 Sex: MFINALREPORT EXAMINATION: CT, ABDOMEN \\T\\ PELVIS, WITH IV CONTRAST. INDICATION: 21-year-old male with concern for abdominal infection. COMPARISON: CT abdomen and pelvis dated 12/10/2021, 10/01/2021, 09/10/2021, 09/04/2021. MRI abdomen dated 08/27/2021. TECHNIQUE:Helical CT imaging of the abdomen and pelvis was performed from the diaphragms to the pubic symphysis after the administration of i ntravenous contrast material. Multiplanar reformats were performed by a technologist. One or more ofthe following dose reduction techniques were used:*Automated exposure control*Adjustment of the mA and/ or kV according to patient size*Use of iterative reconstruction technique Total DLP (mGy-cm): 594I ntravenous contrast: Not documented DICOM format image data are available to non-affiliated externalhealthcare facilities or entities on a secure, media free, reciprocally searchable basis with patient authorization for at least a 12 month period after the study. FINDINGS: LOWER CHEST: The visualizedheart is unremarkable. Lung bases are clear of consolidation. No pleural effusion. LIVER: Mild diffuse hepatic steatosis. No focal hepatic lesions. Portal and hepatic veins are patent. BILIARY SYSTEM: Gallbladder appears normal. No evidence of intrahepatic or extrahepatic biliary dilation. SPLEEN: Spleen is of normal size. Calcified granulomas are noted. PANCREAS: Postsurgical changes status post surg ical debridement of peripancreatic fluid collections; a small [...] the left lower quadrant of the abdomen, extending into the left paracolic gutter. A percutaneous pigtail drainage catheter is noted draining a small fluid collection along the hepatic tip, measuring approximately 1.3 x 6.0 x 1.9 cm, slightly decreased in size from prior examination. ADRENALS: No focal adrenal lesions. URINARY SYSTEM: Kidneys aregrossly symmetric. No focal renal lesions. No hydronephrosis or hydroureter. Bladder is unremarkable. REPRODUCTIVE SYSTEM: Reproductive organs are unremarkable. GASTROINTESTINAL SYSTEM: Stomach is unrem arkable. Small bowel is normal in caliber. Colon is unremarkable. VASCULAR: Abdominal aorta is of normal course and caliber. No significant calcified atherosclerotic disease. LYMPHATICS: No pathologic lymphadenopathy. PERITONEUM: No ascites. SOFT TISSUES/ BONES: Soft tissues are unremarkable. Mild dege nerative changes of the visualized spine. No aggressive osseous lesions. IMPRESSION:1.Postsurgical changes status post surgical debridement of peripancreatic fluid collections; a small amount of residual fluid is noted at the pancreatic tail tracking superiorly in the gastrosplenic ligament under the left hemidiaphragm, similar to prior examination.2.Interval placement of a percutaneous pigtail drainage catheter in a small fluid collection along the hepatic tip, slightly decreased in size from priorexamination.3.Mild diffuse hepatic steatosis. Signed: Robert Figueroaeport Verified Date/Time: 12/14/2021 13:51:31 Reading Location: [facility] Diagnostic Imaging Reading Room - [place] [address] Electronicallysigned by: ROBERT FIGUEROA MD on 12/14/2021 01:51 PMANTI-DNA [id number] 12:28:11 Test Item Value Reference Range Interpretation Comments ANTI-DNA TITER (BEAKER) (test code = :80 1553) DOUBLE-STRANDED DNA (DSDNA) [id number] 12:27:59 Test Item Value Reference Range Interpretation Comments ANTI-DNA DS (BEAKER) (test code = Positive Negative 1055) CBC W/PLT COUNT & AUTO [id number] 06:03:24 Test Item Value Reference Range Interpretation [...] code = 2801) CT, DRAINAGE W/ CATH [id number] 12:21:00Reason for exam:->undrained fluid collections in abdomen [facility] : 2000 Sex: MFINAL REPORT CT guided drainage catheter placement, 12/11/2021 Clinical History: Right-sided abdominal fluid collection. Modality: CT. Marine Cargo Specialist: Shira. Supervisor Machine Setter: None. Sedation: Versed 1 mg and fentanyl [...] was achieved with 1% lidocaine, a 5 Mauritian one-step catheter was advanced into the fluid collection under CT guidance. Aspiration was attempted through this catheter, but only a small amount of fluid could be obtained. After a small skin incision was made, a guidewire was advanced into the fluidcollection. Subsequently, a soft tissue tract was created with 8 Mauritian dilator. After the tract wasdilated, an 8 Mauritian all-purpose drainage catheter was placed into the [...] Oliva Verified Date/Time: 12/13/2021 12:21:52 Reading Location: [facility] Reading Room BASI METABOLIC [id number] 08:39:36 Test Item Value Reference Range Interpretation [...] S NOT APPLICABLE FOR DIALYSIS PATIEN TS. Senior Solutions Consultant ID - [id number] 08:39:36 Test Item Value Reference Range Interpretation Comments MAGNESIUM (BEAKER) (test code = 1.7 mg/dL 1.6-2.6 627) Senior Solutions Consultant ID - BSPOC-Glucose [id number] 07:42:54 Test Item Value Reference Range Interpretation Comments POC-Glucose Meter (test 128 mg/dL 70-110 H : TE STED AT [facility] code = 1538) [address] [facility], 770 30: Senior Solutions Consultant/Techni dakota ID = [id number] for [facility] Lab Interpretation (test Abnormal code = 57569-7) [facility] [id number] 07:42:54 Test Item Value Reference Range Interpretation Comments POC-GLUCOSE METER 128 mg/dL 70-110 H : TESTED A T [facility] 6720 (BEAKER) (test code = [facility], 1538) [address]: Senior Solutions Consultant/Techni dakota ID = [id number] for [facility] HONEYCUTT BLOOD [id number] 15:01:19 Test Item Value Reference Range Interpretation Comments CULTURE (BEAKER) (test No growth in 5 days code = 1095) BLOOD [id number] 15:01:19 Test Item Value Reference Range Interpretation [...] code C. di fficile GDH Toxin: = 8638188) NegativeC. diff icile GDH Antigen: Negati veKit Lot: [id number] Date : 08/22/2023 c [id number] 12:27:53Scan ResultComment: C. difficile GDH Toxin: NegativeC. difficile GDH Antigen: Negative Kit Lot: [id number] Date: [facility]2023[facility] [id number] 12:27:53Scan ResultComment: C. difficile GDH Toxin: NegativeC. difficile GDH Antigen: Negative Kit Lot: [id number] Date: 08/22/2023[facility] [id number] 07:18:15 Test Item Value Reference Range Interpretation [...] S NOT APPLICABLE FOR DIALYSIS PATIEN TS. Senior Solutions Consultant ID - SHREE [id number] 07:18:14 Test Item Value Reference Range Interpretation Comments MAGNESIUM (BEAKER) 1.7 mg/dL 1.6-2.6 Specimen slightly (test code = 627) hemolyzed Senior Solutions Consultant ID - SHREE WCBC W/PLT COUNT & AUTO [id number] 06:48:11 Test Item Value Reference Range Interpretation [...] PERCENT (BEAKER) (test code = 2801) SARS-COV2/RT-PCR ([facility])2021-12-11 08:51:50 Test Item Value Reference Range Interpretation Comments SARS-COV2/RT-PCR (test Negative Not Detected, Negative, code = 3625042) See external report for linked test SARS-COV-2 PERFORMING LAB [facility] SHAUNA (test code = 7183339) Negative result for this test determines that [...] of the Act.Fact Sheet for Healthcare Prov iders:https://www.Obvious.[employer]/sites/default/files/product/documents/Fact_Sheet_HC _Cwoknvvav_Oapy_UUZJ-AqL-2.pdfFact Sheet for Healthcare Patients:https://www.Obvious.[employer]/sites/default/files/product/docume nts/Avoo_Eojzi_Lmihexye_Qeyy_QFHI-SrM-4.pdfPerforming Laboratory:[place] [address], [place] [address]GTFYG METABOLIC PANEL 2021-12-11 07:32:42 Test Item Value [...] S NOT APPLICABLE FOR DIALYSIS PATIEN TS. Senior Solutions Consultant ID - PIJOVI [id number] 07:32:42 Test Item Value Reference Range Interpretation Comments MAGNESIUM (BEAKER) (test code = 1.7 mg/dL 1.6-2.6 627) Senior Solutions Consultant ID - MARIBEL LCT, [id number] 13:47:00Unlisted Reason for Exam - Click Yes and Enter Reason Below->NoIs this for enterography?->NoWill this procedure require oral contrast?->No [facility] : 2000 Sex: MFINAL [...] No abnormal biliary ductal dilatation.SPLEEN: Calcified granulomata arepresent within the spleen. No splenomegaly.ADRENALS: No adrenal [...] No lymphadenopathy.KIDNEYS/URETERS: No hydronephrosis, stones, or masses.PELVIC ORG ANS/BLADDER: Unremarkable. VESSELS: Unremarkable.PERITONEUM/RETROPERITONEUM: No free air or fluid. GI TRACT: No distention or wall thickening. BONES AND SOFT TISSUES: Unremarkable. IMPRESSION: 1. Therehas been interval surgical debridement of peripancreatic collections with surgical drain along the ve ntral/caudal aspect of the pancreas and along the left paracolic gutter with significant interval improvement in peripancreatic inflammatory changes/stranding. Along the gastrosplenic ligament there isan area of phlegmonous change/developing collection measuring 6.9 x 5.4 x 6.2 cm containing a few small locules of gas.2. Tiny bilateral effusions, new since the prior examination.3. Fatty infiltrationof the liver. Signed: Andrés Holloway MDReport Verified Date/Time: 12/10/2021 13:47:19 [id number] 08:22:12 Test Item Value Reference Range Interpretation Comments MAGNESIUM (BEAKER) (test code = 1.5 mg/dL 1.6-2.6 L 627) Senior Solutions Consultant ID Cherelle SWANN WBASIC METABOLIC [id number] 08:22:11 Test Item Value Reference Range Interpretation [...] S NOT APPLICABLE FOR DIALYSIS PATIEN TS. Senior Solutions Consultant ID Cherelle SWANN WCBC W/PLT COUNT & AUTO [id number] 05:53:31 Test Item Value Reference Range Interpretation [...] 0-1 PERCENT (BEAKER) (test code = 2801) [id number] 05:50:23 Test Item Value Reference Range Interpretation Comments MAGNESIUM (BEAKER) (test code = 1.8 mg/dL 1.6-2.6 627) Senior Solutions Consultant ID - BISI GBASIC METABOLIC [id number] 05:50:22 Test Item Value Reference Range Interpretation [...] S NOT APPLICABLE FOR DIALYSIS PATIEN TS. Senior Solutions Consultant ID - BISI GCOMPLEMENT COMPONENT [id number] 05:47:38 Test Item Value Reference Range Interpretation Comments C3 COMPLEMENT (BEAKER) (test code = 34 mg/dL 82-193 L 393) Senior Solutions Consultant ID - MARIBEL LCOMPLEMENT COMPONENT [id number] 05:47:37 Test Item Value Reference Range Interpretation Comments C4 COMPLEMENT (BEAKER) (test code = 6 mg/dL 15-57 L 394) Senior Solutions Consultant ID - MARIBEL LPROTHROMBIN TIME/[id number] 05:32:34 Test Item Value Reference Range Interpretation Comments PROTIME (BEAKER) 16.8 seconds 11.9-14.2 H (test code = 759) INR (BEAKER) (test 1.39 See_Comment [Automat ed message] code = 370) The system Cognitive Code generated this result transmitted ref erence range: <=5.90. The reference range was not used to int erpret this result as normal/abnormal . RECOMMENDED COUMADIN/WARFARIN INR THERAPY RANGESSTANDARD DOSE: 2.0 - 3.0 Includes: PROPHYLAXIS for venous thrombosis, systemic embolization; TREATMENT for venous thrombosis and/or pulmonary embolus.HIGH RISK: Target INR is 2.5-3.5 for patients with mechanical heart valves.Urinalysis w/[id number] 00:48:22 Test Item Value Reference Range Interpretation Comments Color, UA (test code Yellow = 5778-6) Clarity, UA (test Clear code = 5767-9) Specific [place], UA 1.023 1.001-1.035 (test code = 5811-5) pH, UA (test code = 6.5 5.0-8.0 5803-2) Protein, UA (test Negative Negative code = 64337-7) Glucose, UA (test 50 mg/dL Negative A code = 365) Ketones, UA (test Trace Negative A code = 2514-8) Bilirubin, UA (test Negative Negative code = 00309-3) Blood, UA (test code Negative Negative = 26243-8) Nitrite, UA (test Negative Negative code = 5802-4) Leukocytes, UA (test Trace Negative A code = 5799-2) Urobilinogen, UA 0.2 mg/dL 0.2-1.0 (test code = 13301-6) RBC, UA (test code = 2 See_Comment [Autom ated 09337-2) message] The system which generated this result [...] . Bacteria, UA (test Moderate code = 01035-2) Mucus (test code = Occasional 8247-9) Hyaline Casts, UA 4 See_Comment [Automate d (test code = 67882-1) messag e] The system which generated this result transmitted reference range : /LPF. The reference range was not used to interpret this result as normal/abnormal . Crystals, Urine (test None Seen code = 58429-8) Specimen Source (test code = 2795) IDALIA (test code = IDALIA) Senior Solutions Consultant ID - [auto]Senior Solutions Consultant ID - tech Lab Interpretation Abnormal (test code = 36924-2) [facility]URIN[facility]YSIS W/ [id number] 00:48:22 Test Item Value Reference Range Interpretation [...] = 1521) SOURCE(BEAKER) (test code = 2795) Senior Solutions Consultant ID - [auto]Senior Solutions Consultant ID - techProtein, random [id number] 23:18:26 Test Item Value Reference Range Interpretation Comments Protein, Urine (test code 21 mg/dL 0-14 H = 2888-6) IDALIA (test code = IDALIA) Senior Solutions Consultant ID - MARIBEL L Lab Interpretation (test Abnormal code = 30273-9) [facility] HospitalProtein, random [id number] 23:18:26 Test Item Value Reference Range Interpretation Comments Protein, Urine (test code 21 mg/dL 0-14 H = 2888-6) IDALIA (test code = IDALIA) Senior Solutions Consultant ID - MARIBEL L Lab Interpretation (test Abnormal code = 30794-2) [facility] HospitalPROTEIN, RANDOM [id number] 23:18:26 Test Item Value Reference Range Interpretation Comments PROTEIN, URINE (BEAKER) (test code = 21 mg/dL 0-14 H 1569) Senior Solutions Consultant ID - MARIBEL LCreatinine, random [id number] 23:18:25 Test Item Value Reference Range Interpretation Comments Creatinine, Ur 99.7 mg/dL (test code = 2161-8) IDALIA (test code = Reference Range: No IDALIA) NormalsOperator ID - MAILEAYA L [facility] HospitalCreatinine, random [id number] 23:18:25 Test Item Value Reference Range Interpretation Comments Creatinine, Ur 99.7 mg/dL (test code = 2161-8) IDALIA (test code = Reference Range: No IDALIA) NormalsOperator ID - MARIBEL Inman [facility]CREAT[facility], RANDOM [id number] 23:18:25 Test Item Value Reference Range Interpretation Comments CREATININE URINE (BEAKER) (test 99.7 mg/dL code = 375) Reference Range: No NormalsOperator ID - MARIBEL LPOCT-GLUCOSE [id number] 10:32:21 Test Item Value Reference Range Interpretation Comments POC-GLUCOSE METER 110 mg/dL 70-110 : TESTED A T [facility] 6720 (BEAKER) (test code = [place], 1538) [address]: Senior Solutions Consultant/Techni dakota ID = [id number] for [facility] HONEYCUTT HEMOGLOBIN [id number] 10:26:45 Test Item Value Reference Range Interpretation [...] 5.7- 6.4% indicates increased risk for diabetes (prediabetes)."Senior Solutions Consultant ID - ADM HEPATIC FUNCTION [id number] 10:19:31 Test Item Value Reference Range Interpretation [...] Specimen slightly (test code = 347) hemolyzed Senior Solutions Consultant ID - MAILEJOVI LBASIC METABOLIC [id number] 10:19:30 Test Item Value Reference Range Interpretation [...] S NOT APPLICABLE FOR DIALYSIS PATIEN TS. Senior Solutions Consultant ID - MAILEJOVI LLIPID [id number] 10:19:30 Test Item Value Reference Range Interpretation [...] Borderline 130-159 High 160-189 Very High >=190 Senior Solutions Consultant ID - MARIBEL [id number] 10:19:29 Test Item Value Reference Range Interpretation Comments MAGNESIUM (BEAKER) 1.5 mg/dL 1.6-2.6 L Specimen slightly (test code = 627) hemolyzed Senior Solutions Consultant ID - MARIBEL [id number] 10:19:29 Test Item Value Reference Range Interpretation Comments PHOSPHORUS (BEAKER) 3.9 mg/dL 2.3-4.7 Specimen slightly (test code = 604) hemolyzed Senior Solutions Consultant ID - MARIBEL LCBC W/PLT COUNT & AUTO [id number] 06:19:38 Test Item Value Reference Range Interpretation [...] (BEAKER) (test code = 2801) COMPREHENSIVE METABOLIC [id number] 14:20:15 Test Item Value Reference Range Interpretation [...] S NOT APPLICABLE FOR DIALYSIS PATIEN TS. Senior Solutions Consultant ID - MARIBEL [id number] 14:20:15 Test Item Value Reference Range Interpretation Comments LIPASE (BEAKER) (test code = 749) 8 U/L 8-78 Senior Solutions Consultant ID - MARIBEL NEGRONACTIC ACID, [id number] 14:16:12 Test Item Value Reference Range Interpretation Comments LACTATE BLOOD VENOUS 1.09 mmol/L 0.50-2.20 Specime n slightly (2) (BEAKER) (test hemolyzed code = 2872) Senior Solutions Consultant ID - MARIBEL [id number] 14:09:56 Test Item Value Reference Range Interpretation Comments PARTIAL THROMBOPLASTIN TIME 28.8 seconds 22.5-36.0 (BEAKER) (test code = 760) PROTHROMBIN [id number] 14:09:14 Test Item Value Reference Range Interpretation Comments PROTIME (BEAKER) 16.6 seconds 11.9-14.2 H (test code = 759) INR (BEAKER) (test 1.37 See_Comment [Automat ed message] code = 370) The system Cognitive Code generated this result transmitted ref erence range: <=5.90. The reference range was not used to int erpret this result as normal/abnormal . RECOMMENDED COUMADIN/WARFARIN INR THERAPY RANGESSTANDARD DOSE: 2.0 - 3.0 Includes: PROPHYLAXIS for venous thrombosis, systemic embolization; TREATMENT for venous thrombosis and/or pulmonary embolus.HIGH RISK: Target INR is 2.5-3.5 for patients with mechanical heart valves.CBC W/PLT COUNT & AUTO [id number] 14:03:40 Test Item Value Reference Range Interpretation [...] PERCENT (BEAKER) (test code = 2801) POCT-GLUCOSE [id number] 13:55:45 Test Item Value Reference Range Interpretation Comments POC-GLUCOSE METER 86 mg/dL 70-110 : TESTED A T [facility] 6720 (BEAKER) (test code = [place], 1538) [address]: Senior Solutions Consultant/Techni dakota ID = [id number] for Jose Hodges [employer] culture + smear (non-sputum)2021-11-16 10:41:32 Test Item Value Reference Range Interpretation Comments Result (test code = No acid-fast bacilli 6463-4) isolated in 42 days AFB Smear (test code = No acid fast bacilli 58420-2) seen [facility]AF[facility] culture + smear (non-sputum)2021-11-16 10:41:32 Test Item Value Reference Range Interpretation Comments Result (test code = No acid-fast bacilli 6463-4) isolated in 42 days AFB Smear (test code = No acid fast bacilli 42483-7) seen [facility]AF[facility] CULTURE + SMEAR (NON-SPUTUM)2021-11-16 10:41:32 Test Item Value Reference Range Interpretation Comments CULTURE (BEAKER) (test No acid-fast bacilli code = 1095) isolated in 42 days AFB SMEAR (BEAKER) No acid fast bacilli (test code = 994) seen Fungus culture + [id number] 17:16:53 Test Item Value Reference Range Interpretation Comments Result (test code = No fungus isolated in 6463-4) 28 days Fungus Smear (test No fungi seen code = 1406) [facility] HospitalFung[facility] culture + [id number] 17:16:53 Test Item Value Reference Range Interpretation Comments Result (test code = No fungus isolated in 6463-4) 28 days Fungus Smear (test No fungi seen code = 1406) [facility] HospitalFUNGUS CULTURE + [id number] 17:16:53 Test Item Value Reference Range Interpretation Comments CULTURE (BEAKER) (test No fungus isolated in code = 1095) 28 days FUNGUS SMEAR (BEAKER) No fungi seen (test code = 1406) - CT ABDOMEN W W/O [id number] 15:32:00 [facility] : 2000 Sex: M FAX: Willard Vaughn Jr [phone] [place]: St: REG Name: VANGIE OVALLE [facility] : 2000 Age/S: 21/M [address] Unit: [id number] Loc: [place] [address] Phys: Willard Crouch Jr, MD Acct: [id number] Dis Date: Status: REG CLI PHONE #: [phone] Exam Date: 10/23/2021 [facility]5 FAX #: [phone] Reason: ABDOMINAL ABSCESSES EXAMS: CPT CODE: [id number] CT ABDOMEN W W/O CONTRAST 98635 EXAMINATION: -CT ABDOMEN W W/O CONTRAST INDICATION: [...] mild hepatic steatosis with otherwise unremarkable liver. Mildsplenomegaly with calcified granulomas. Gallbladder, adrenal glands, and kidneys are unremarkable. Air-fluid collections are again seen in region of pancreatic tail tracking down the left paracolic gutter. A reference component along the splenic hilum measures 5.3 x 2.8 cm, previously 7.8 x 3.6 cm at s imilar level. No definite finding of pancreatic necrosis. An additional air- fluid collection is seenin the right paracolic gutter which has decreased [...] Signed Report (CONTINUED) FAX: Willard Vaughn Jr [phone] [facility] s: St: REG -- Name: VANGIE OVALLE [facility] : 2000 Age/S: 21/M [address] Unit: [id number] Loc: [place] [address] Phys: Willard Crouch Jr, MD Acct: [id number] Dis Date: Status: REG CLI PHONE #:[phone] Exam Date: 10/23/2021 1445 FAX #: [phone] Reason: ABDOMINAL ABSCESSES EXAMS: CPT C ODE: [id number] CT ABDOMEN W W/O CONTRAST 81200 (Continued) Imaged lower chest demonstrates mild bibasilar atelectasis. No acute osseous abnormality identified. IMPRESSION: Following interval drain placements, overall quantity of air-fluid collections has partially improved. at 1532 Reported and signed by: Sabas Grey MD CC: Willard Crouch JrTechnologist: DORENE WHITTAKER, RT(R,CT); MATTY CLINTON Trnscrd Dt/Tm: 10/23/2021 (1532) t.SDR.PE1 Orig Print D/T: S: 10/23/2021 (1536 PAGE 2 Signed ReportPOCT-GLUCOSE [id number] 12:03:00 Test Item Value Reference Range Interpretation Comments POC-GLUCOSE METER 147 mg/dL 70-110 H : TESTED A T [facility] 6720 (BEAKER) (test code = [place], 1538) [address]: Senior Solutions Consultant/Techni dakota ID = [id number] for Roberto Carlos Singh POCT-GLUCOSE [id number] 07:25:56 Test Item Value Reference Range Interpretation Comments POC-GLUCOSE METER 108 mg/dL 70-110 : TESTED A T [facility] 6720 (BEAKER) (test code = [facility] [employer] [facility], 1538) 365[address]: Senior Solutions Consultant/Techni dakota ID = [id number] for Saritha Castro [id number] 06:30:28 Test Item Value Reference Range Interpretation Comments PHOSPHORUS (BEAKER) (test code = 3.1 mg/dL 2.3-4.7 604) Senior Solutions Consultant ID - DBHEPATIC FUNCTION [id number] 06:30:28 Test Item Value Reference Range Interpretation [...] (test code = 9 U/L 6-55 347) Senior Solutions Consultant ID - DBBASIC METABOLIC [id number] 06:30:27 Test Item Value Reference Range Interpretation [...] S NOT APPLICABLE FOR DIALYSIS PATIEN TS. Senior Solutions Consultant ID - [id number] 06:30:27 Test Item Value Reference Range Interpretation Comments MAGNESIUM (BEAKER) (test code = 1.6 mg/dL 1.6-2.6 627) Senior Solutions Consultant ID - DBCBC W/PLT COUNT & AUTO [id number] 06:18:45 Test Item Value Reference Range Interpretation [...] PERCENT (BEAKER) (test code = 2801) POCT-GLUCOSE [id number] 22:04:31 Test Item Value Reference Range Interpretation Comments POC-GLUCOSE METER 148 mg/dL 70-110 H : TESTED A T [facility] 6720 (BEAKER) (test code = [facility], 1538) 501[address]: Senior Solutions Consultant/Techni dakota ID = [id number] for ME HAYESANNABEL JOANN POCT-GLUCOSE [id number] 17:21:06 Test Item Value Reference Range Interpretation Comments POC-GLUCOSE METER 231 mg/dL 70-110 H : TESTED A T [facility] 6720 (BEAKER) (test code = [facility] [employer] [facility], 1538) 96889: Senior Solutions Consultant/Techni dakota ID = [id number] for ERNST FRANCOIS Anaerobic [id number] 13:55:46 Test Item Value Reference Range Interpretation Comments Result (test code = No anaerobes isolated 6463-4) [facility] [id number] 13:55:46 Test Item Value Reference Range Interpretation Comments CULTURE (BEAKER) (test No anaerobes isolated code = 1095) BASIC METABOLIC [id number] 12:01:25 Test Item Value Reference Range Interpretation [...] S NOT APPLICABLE FOR DIALYSIS PATIEN TS. Senior Solutions Consultant ID - ALVINA MHEPATIC FUNCTION [id number] 12:01:25 Test Item Value Reference Range Interpretation [...] (test code = 9 U/L 6-55 347) Senior Solutions Consultant ID - ALVINA MOperator ID - ALVINA [id number] 12:01:24 Test Item Value Reference Range Interpretation Comments PHOSPHORUS (BEAKER) (test code = 3.8 mg/dL 2.3-4.7 604) Senior Solutions Consultant ID - ALVINA [id number] 12:01:19 Test Item Value Reference Range Interpretation Comments MAGNESIUM (BEAKER) (test code = 1.5 mg/dL 1.6-2.6 L 627) Senior Solutions Consultant ID - ALVINA MPOCT-GLUCOSE [id number] 11:54:19 Test Item Value Reference Range Interpretation Comments POC-GLUCOSE METER 110 mg/dL 70-110 : TESTED A T [facility] 6720 (BEAKER) (test code = [place], 1538) 74[address]: Senior Solutions Consultant/Techni dakota ID = [id number] for [place] LLIS, ERNST CBC W/PLT COUNT & AUTO [id number] 11:25:49 Test Item Value Reference Range Interpretation [...] PERCENT (BEAKER) (test code = 2801) POCT-GLUCOSE [id number] 09:39:11 Test Item Value Reference Range Interpretation Comments POC-GLUCOSE METER 87 mg/dL 70-110 : TESTED A T [facility] 6720 (BEAKER) (test code = [place], 1538) 314[address]: Senior Solutions Consultant/Techni dakota ID = [id number] for DELMAR IYER SARS-COV2/RT-PCR ([facility])2021-10-09 04:10:06 Test Item Value Reference Range Interpretation Comments SARS-COV2/RT-PCR (test Negative Not Detected, Negative, code = 5634917) See external report for linked test SARS-COV-2 PERFORMING LAB [facility] SHAUNA (test code = 9603481) Negative result for this test determines that [...] of the Act.Fact Sheet for Healthcare Prov iders:https://www.SwarmBuild/sites/default/files/product/documents/Fact_Sheet_HC _Bkboruabk_Wivl_TYLE-NrJ-9.pdfFact Sheet for Healthcare Patients:https://www.SwarmBuild/sites/default/files/product/docume nts/Fels_Ctula_Ijbftota_Owwb_FHSU-LsB-4.pdfPerforming Laboratory:[address], [place] [address]TMGK-ZMOCTDW METER 2021-10-08 20:41:51 Test Item Value Reference Range Interpretation Comments POC-GLUCOSE METER 102 mg/dL 70-110 : Notified RN/MD: (GENEVA) (test code = TESTED AT [place] [address] 1538) [facility], [address]: Senior Solutions Consultant/Techni dakota ID = [id number] for KELECHI BENEDICT HEATH POCT-GLUCOSE [id number] 17:43:36 Test Item Value Reference Range Interpretation Comments POC-GLUCOSE METER 93 mg/dL 70-110 : TESTED A T [place] [id number] (GENEVA) (test code = [facility] Ishaan [facility], 1538) 992[address]: Senior Solutions Consultant/Techni dakota ID = [id number] for Poncematteo jewel Umeshtereza POCT-GLUCOSE [id number] 12:09:22 Test Item Value Reference Range Interpretation Comments POC-GLUCOSE METER 93 mg/dL 70-110 : [facility] (BE[facility]ER[facility] (test code = [place], 1538) 08[address]: Senior Solutions Consultant/Techni dakota ID = [id number] for Mercy Peña POCT-GLUCOSE [id number] 08:51:46 Test Item Value Reference Range Interpretation Comments POC-GLUCOSE METER 95 mg/dL 70-110 : TESTED A T [facility] 6720 (BEAKER) (test code = [place], 1538) 23871: Senior Solutions Consultant/Techni dakota ID = [id number] for Mercy Peña [id number] 05:23:25 Test Item Value Reference Range Interpretation Comments PHOSPHORUS (BEAKER) (test code = 3.1 mg/dL 2.3-4.7 604) Senior Solutions Consultant ID - MARIBEL LHEPATIC FUNCTION [id number] 05:23:25 Test Item Value Reference Range Interpretation [...] (test code = 11 U/L 6-55 347) Senior Solutions Consultant ID - MARIBEL LBASIC METABOLIC [id number] 05:23:24 Test Item Value Reference Range Interpretation [...] S NOT APPLICABLE FOR DIALYSIS PATIEN TS. Senior Solutions Consultant ID - MARIBEL [id number] 05:23:24 Test Item Value Reference Range Interpretation Comments MAGNESIUM (BEAKER) (test code = 1.4 mg/dL 1.6-2.6 L 627) Senior Solutions Consultant ID - MARIBEL LCBC W/PLT COUNT & AUTO [id number] 04:49:36 Test Item Value Reference Range Interpretation [...] PERCENT (BEAKER) (test code = 2801) POCT-GLUCOSE [id number] 21:40:30 Test Item Value Reference Range Interpretation Comments POC-GLUCOSE METER 135 mg/dL 70-110 H : TESTED A T [facility] 6720 (BEAKER) (test code = [facility], 153) 23293: Senior Solutions Consultant/Techni dakota ID = [id number] for MARTINE VASQUEZ POCT-GLUCOSE [id number] 16:34:48 Test Item Value Reference Range Interpretation Comments POC-GLUCOSE METER 177 mg/dL 70-110 H : TESTED A T [facility] 6720 (BEAKER) (test code = [facility], 153) 01977: Senior Solutions Consultant/Techni dakota ID = [id number] for FAY SPARKS, POCT-GLUCOSE [id number] 11:09:04 Test Item Value Reference Range Interpretation Comments POC-GLUCOSE METER 156 mg/dL 70-110 H : TESTED A T [facility] 6720 (BEAKER) (test code = [facility], 153) 59941: Senior Solutions Consultant/Techni dakota ID = [id number] for FAY NEGRONIAMS, POCT-GLUCOSE [id number] 07:50:39 Test Item Value Reference Range Interpretation Comments POC-GLUCOSE METER 69 mg/dL 70-110 L : TESTED A T [facility] 6720 (BEAKER) (test code = [place], 1538) 99[address]: Senior Solutions Consultant/Techni dakota ID = [id number] for QUEEN JACOBSEN HEPATIC FUNCTION [id number] 04:46:43 Test Item Value Reference Range Interpretation [...] (test code = 11 U/L 6-55 347) Senior Solutions Consultant ID - ALVINA [id number] 04:46:42 Test Item Value Reference Range Interpretation Comments MAGNESIUM (BEAKER) (test code = 1.4 mg/dL 1.6-2.6 L 627) Senior Solutions Consultant ID - ALVINA [id number] 04:46:42 Test Item Value Reference Range Interpretation Comments PHOSPHORUS (BEAKER) (test code = 2.6 mg/dL 2.3-4.7 604) Senior Solutions Consultant ID - ALVINA MBASIC METABOLIC [id number] 04:46:41 Test Item Value Reference Range Interpretation [...] S NOT APPLICABLE FOR DIALYSIS PATIEN TS. Senior Solutions Consultant ID - ALVINA MPOCT-GLUCOSE [id number] 21:32:38 Test Item Value Reference Range Interpretation Comments POC-GLUCOSE METER 175 mg/dL 70-110 H : TESTED A T [facility] 6720 (BEAKER) (test code = [facility], 1538) 12226: Senior Solutions Consultant/Techni dakota ID = [id number] for NG O, BRIGIDA POCT-GLUCOSE [id number] 16:48:18 Test Item Value Reference Range Interpretation Comments POC-GLUCOSE METER 217 mg/dL 70-110 H : TESTED A T [facility] 6720 (BEAKER) (test code [facility], = 1538) 88693: Senior Solutions Consultant/Techni dakota ID = [id number] for Bhag Mercy holloway POCT-GLUCOSE [id number] 12:45:58 Test Item Value Reference Range Interpretation Comments POC-GLUCOSE METER 158 mg/dL 70-110 H : TESTED A T [facility] 6720 (BEAKER) (test code [facility], = 1538) 15380: Senior Solutions Consultant/Techni dakota ID = [id number] for Bhag jewel, Umeshree HEPATIC FUNCTION [id number] 06:44:11 Test Item Value Reference Range Interpretation [...] (test code = 11 U/L 6-55 347) Senior Solutions Consultant ID - ALVINA [id number] 06:44:10 Test Item Value Reference Range Interpretation Comments PHOSPHORUS (BEAKER) (test code = 2.4 mg/dL 2.3-4.7 604) Senior Solutions Consultant ID - ALVINA MBASIC METABOLIC [id number] 06:44:09 Test Item Value Reference Range Interpretation [...] S NOT APPLICABLE FOR DIALYSIS PATIEN TS. Senior Solutions Consultant ID - ALVINA [id number] 06:44:09 Test Item Value Reference Range Interpretation Comments MAGNESIUM (BEAKER) (test code = 1.5 mg/dL 1.6-2.6 L 627) Senior Solutions Consultant ID - ALVINA MCBC W/PLT COUNT & AUTO [id number] 06:09:40 Test Item Value Reference Range Interpretation [...] PERCENT (BEAKER) (test code = 2801) BLOOD [id number] 23:00:53 Test Item Value Reference Range Interpretation Comments CULTURE (BEAKER) (test No growth in 5 days code = 1095) The specimen volume collected for this blood culture was below the optimum (10 mL per bottle or 20 mL total). Use of lower volumes may adversely affect recovery and/or detection times of some organisms.BLOOD [id number] 23:00:53 Test Item Value Reference Range Interpretation Comments CULTURE (BEAKER) (test No growth in 5 days code = 1095) POCT-GLUCOSE [id number] 21:19:41 Test Item Value Reference Range Interpretation Comments POC-GLUCOSE METER 154 mg/dL 70-110 H : TESTED A T [facility] 6720 (BEAKER) (test code = [facility], 1538) 79370: Senior Solutions Consultant/Techni dakota ID = [id number] for Arsenio schneider (contract)Palaknyalejandro POCT-GLUCOSE [id number] 16:32:34 Test Item Value Reference Range Interpretation Comments POC-GLUCOSE METER 168 mg/dL 70-110 H : TESTED A T [facility] 6720 (BEAKER) (test code = [facility], 1538) 45527: Senior Solutions Consultant/Techni dakota ID = [id number] for [place] LLIS, ERNST POCT-GLUCOSE [id number] 11:36:04 Test Item Value Reference Range Interpretation Comments POC-GLUCOSE METER 120 mg/dL 70-110 H : TESTED A T [facility] 6720 (BEAKER) (test code = [facility], 1538) 61690: Senior Solutions Consultant/Techni dakota ID = [id number] for [place] LLIS, ERNST SARS-COV2/RT-PCR ([facility])2021-10-05 10:25:30 Test Item Value Reference Range Interpretation Comments SARS-COV2/RT-PCR (test Negative Not Detected, Negative, code = 3937950) See external report for linked test SARS-COV-2 PERFORMING LAB [facility] SHAUNA (test code = 5303086) Negative result for this test determines that [...] of the Act.Fact Sheet for Healthcare Prov iders:https://www.SwarmBuild/sites/default/files/product/documents/Fact_Sheet_HC _Kxuexcnzg_Neyd_MJMK-TtR-1.pdfFact Sheet for Healthcare Patients:https://www.SwarmBuild/sites/default/files/product/docume nts/Kekl_Wrwwi_Vpvdurjz_Ikak_TJCA-UeY-2.pdfPerforming Laboratory:[facility], [place] [address]IQMD-YGYUJQB METER 2021-10-05 08:03:30 Test Item Value Reference Range Interpretation Comments POC-GLUCOSE METER 109 mg/dL 70-110 : TESTED A T [facility] 6720 (BEAKER) (test code = [place] [facility], 1538) 688[address]: Senior Solutions Consultant/Techni dakota ID = [id number] for FAY MARTINEZ ERNST HEPATIC FUNCTION [id number] 07:35:20 Test Item Value Reference Range Interpretation [...] (test code = 12 U/L 6-55 347) Senior Solutions Consultant ID - MAILEJOVI LOperator ID - [id number] 06:55:48 Test Item Value Reference Range Interpretation Comments MAGNESIUM (BEAKER) (test code = 1.6 mg/dL 1.6-2.6 627) Senior Solutions Consultant ID - MAILEJOVI [id number] 06:55:48 Test Item Value Reference Range Interpretation Comments PHOSPHORUS (BEAKER) (test code = 2.1 mg/dL 2.3-4.7 L 604) Senior Solutions Consultant ID - MAILEJOVI LBASIC METABOLIC [id number] 06:55:47 Test Item Value Reference Range Interpretation [...] S NOT APPLICABLE FOR DIALYSIS PATIEN TS. Senior Solutions Consultant ID - MAILEJOVI LCBC W/PLT COUNT & AUTO [id number] 06:21:14 Test Item Value Reference Range Interpretation [...] 0-1 H PERCENT (BEAKER) (test code = 6232) POCT-GLUCOSE [id number] 21:22:59 Test Item Value Reference Range Interpretation Comments POC-GLUCOSE METER 192 mg/dL 70-110 H : TESTED A T [facility] 6720 (BEAKER) (test code = [facility], 153) 21061: Senior Solutions Consultant/Techni dakota ID = [id number] for Arsenio schneider (contract)Palak POCT-GLUCOSE [id number] 17:34:11 Test Item Value Reference Range Interpretation Comments POC-GLUCOSE METER 201 mg/dL 70-110 H : TESTED A T [facility] 6720 (BEAKER) (test code = [facility], 1538) 34701: Senior Solutions Consultant/Techni dakota ID = [id number] for Keely House POCT-GLUCOSE [id number] 12:07:46 Test Item Value Reference Range Interpretation Comments POC-GLUCOSE METER 103 mg/dL 70-110 : TESTED A T [facility] 6720 (BEAKER) (test code = [facility], 153) 12281: Senior Solutions Consultant/Techni dakota ID = [id number] for ERNST FRANCOIS SURGICALLY OBTAINED CULTURE + GRAM [id number] 09:10:42 Test Item Value Reference Range Interpretation [...] gram negative (BEAKER) (test code = rods 297802) HEPATIC FUNCTION [id number] 07:01:07 Test Item Value Reference Range Interpretation [...] (test code = 12 U/L 6-55 347) Senior Solutions Consultant ID - BISI [id number] 07:01:06 Test Item Value Reference Range Interpretation Comments PHOSPHORUS (BEAKER) (test code = 2.8 mg/dL 2.3-4.7 604) Senior Solutions Consultant ID - BISI GBASIC METABOLIC [id number] 07:01:05 Test Item Value Reference Range Interpretation [...] S NOT APPLICABLE FOR DIALYSIS PATIEN TS. Senior Solutions Consultant ID - BISI [id number] 07:01:05 Test Item Value Reference Range Interpretation Comments MAGNESIUM (BEAKER) (test code = 1.6 mg/dL 1.6-2.6 627) Senior Solutions Consultant ID - BISI GCBC W/PLT COUNT & AUTO [id number] 06:35:47 Test Item Value Reference Range Interpretation [...] PERCENT (BEAKER) (test code = 2801) POCT-GLUCOSE [id number] 16:48:07 Test Item Value Reference Range Interpretation Comments POC-GLUCOSE METER 113 mg/dL 70-110 H : TESTED A T [facility] 6720 (BEAKER) (test code = [facility], 1538) 41476: Senior Solutions Consultant/Techni dakota ID = [id number] for MASON FALCON POCT-GLUCOSE [id number] 11:46:29 Test Item Value Reference Range Interpretation Comments POC-GLUCOSE METER 116 mg/dL 70-110 H : TESTED A T [facility] 6720 (BEAKER) (test code = [facility], 1538) 66458: Senior Solutions Consultant/Techni dakota ID = [id number] for MASON FALCON ANTI-DNA [id number] 11:16:17 Test Item Value Reference Range Interpretation Comments ANTI-DNA TITER (BEAKER) (test code = :80 1553) DOUBLE-STRANDED DNA (DSDNA) [id number] 11:16:05 Test Item Value Reference Range Interpretation Comments ANTI-DNA DS (BEAKER) (test code = Positive Negative 1055) ANAEROBIC [id number] 08:30:44 Test Item Value Reference Range Interpretation Comments CULTURE (BEAKER) (test No anaerobes isolated code = 1095) HEPATIC FUNCTION [id number] 05:47:57 Test Item Value Reference Range Interpretation [...] Specimen slightly (test code = 347) hemolyzed Senior Solutions Consultant ID - PIAYA LBASIC METABOLIC [id number] 05:47:56 Test Item Value Reference Range Interpretation [...] S NOT APPLICABLE FOR DIALYSIS PATIEN TS. Senior Solutions Consultant ID - MARIBEL [id number] 05:47:55 Test Item Value Reference Range Interpretation Comments PHOSPHORUS (BEAKER) 4.6 mg/dL 2.3-4.7 Specimen slightly (test code = 604) hemolyzed Senior Solutions Consultant ID - PIAYA [id number] 05:47:54 Test Item Value Reference Range Interpretation Comments MAGNESIUM (BEAKER) 1.9 mg/dL 1.6-2.6 Specimen slightly (test code = 627) hemolyzed Senior Solutions Consultant ID - PIAYA LCBC (HEMOGRAM ONLY)2021-10-03 05:23:39 Test Item Value [...] 0-0 (BEAKER) (test code = 413) POCT-GLUCOSE [id number] 05:08:33 Test Item Value Reference Range Interpretation Comments POC-GLUCOSE METER 102 mg/dL 70-110 : Notified RN/MD: (BEAKER) (test code = TESTED AT [facility] 1231 1040) [facility], [address]: Senior Solutions Consultant/Techni dakota ID = [id number] for Omid shyanne Aaron BASIC METABOLIC [id number] 21:11:22 Test Item Value Reference Range Interpretation [...] S NOT APPLICABLE FOR DIALYSIS PATIEN TS. Senior Solutions Consultant ID - [id number] 21:10:34 Test Item Value Reference Range Interpretation Comments PHOSPHORUS (BEAKER) (test code = 4.2 mg/dL 2.3-4.7 604) Senior Solutions Consultant ID - [id number] 21:10:33 Test Item Value Reference Range Interpretation Comments MAGNESIUM (BEAKER) (test code = 1.4 mg/dL 1.6-2.6 L 627) Senior Solutions Consultant ID - ADMINCBC (HEMOGRAM ONLY)2021-10-02 20:57:35 Test [...] 0-0 (BEAKER) (test code = 413) POCT-GLUCOSE [id number] 19:48:59 Test Item Value Reference Range Interpretation Comments POC-GLUCOSE METER 104 mg/dL 70-110 : TESTED A T [facility] 6720 (BEAKER) (test code = [place], 1538) [address]: Senior Solutions Consultant/Techni dakota ID = [id number] for Te rrell, Marcio HGB/HCT (H&H)-Stat [id number] 18:09:55 Test Item Value Reference Range Interpretation Comments Hemoglobin (test code = 10.2 See_Comment L [Au tomated message] 786-4) The system Cognitive Code generated this result transmitted ref erence range: 13.0 - 1 6.8 GM/DL. The refe rence range was not u sed to interpret this result as normal/abnor mal. Hematocrit (test code = 30.0 % 40.0-50.0 L 4544-3) Lab Interpretation (test Abnormal code = 14151-0) [facility] [id number] 18:09:55 Test Item Value Reference Range Interpretation Comments Hemoglobin (test code = 10.2 See_Comment L [Au tomated message] 786-4) The system Cognitive Code generated this result transmitted ref erence range: 13.0 - 1 6.8 GM/DL. The refe rence range was not u sed to interpret this result as normal/abnor mal. Hematocrit (test code = 30.0 % 40.0-50.0 L 4544-3) Lab Interpretation (test Abnormal code = 47891-6) [facility]&H[facility] - STAT [id number] 18:09:55 Test Item Value Reference Range Interpretation Comments HEMOGLOBIN (BEAKER) (test code = 10.2 GM/DL 13.0-16.8 L 410) HEMATOCRIT (BEAKER) (test code = 30.0 % 40.0-50.0 L 411) Sodium Na-Stat [id number] 18:09:54 Test Item Value Reference Range Interpretation Comments Sodium (test code = 2951-2) 130 meq/L 136-145 L Lab Interpretation (test code = Abnormal 29107-3) [facility] [id number] 18:09:54 Test Item Value Reference Range Interpretation Comments Sodium (test code = 2951-2) 130 meq/L 136-145 L Lab Interpretation (test code = Abnormal 25437-1) [facility] NA-STAT [id number] 18:09:54 Test Item Value Reference Range Interpretation Comments SODIUM (BEAKER) (test code = 381) 130 meq/L 136-145 L Blood gas, [id number] 18:09:53 Test Item Value Reference Range Interpretation Comments pH, Arterial (test code 7.50 7.35-7.45 H = 2744-1) pCO2, Arterial (test 35 See_Comment [Autom ated message] code = 2018-12) The system Yatra generated this result transmit hernandez reference range : 35 - 45 mm Hg. The reference range was not used to interpret this result as normal/abnormal . pO2, Arterial (test 139 See_Comment H [Automa hernandez message] code = 2703-7) The system Yatra generated this result transmit hernandez reference range [...] 8310-5) Lab Interpretation Abnormal (test code = 36193-0) [facility], [id number] 18:09:53 Test Item Value Reference Range Interpretation Comments pH, Arterial (test code 7.50 7.35-7.45 H = 2744-1) pCO2, Arterial (test 35 See_Comment [Autom ated message] code = 2018-12) The system [employer] generated this result transmit hernandez reference range : 35 - 45 mm Hg. The reference range was not used to interpret this result as normal/abnormal . pO2, Arterial (test 139 See_Comment H [Automa hernandez message] code = 2703-7) The system [facility] generated this result transmit hernandez reference range [...] 8310-5) Lab Interpretation Abnormal (test code = 23057-0) [facility] HospitalCALCIUM, [id number] 18:09:53 Test Item Value Reference Range Interpretation Comments CALCIUM IONIZED (BEAKER) (test 1.07 mmol/L 1.12-1.27 L code = 698) PH, BLOOD (BEAKER) (test code = 7.50 1810) BLOOD GAS, [id number] 18:09:53 Test Item Value Reference Range Interpretation [...] (BEAKER) (test 37.0 code = 1818) Glucose-Stat [id number] 18:08:53 Test Item Value Reference Range Interpretation Comments Glucose (test code = 2345-7) 101 mg/dL 70-110 Lab Interpretation (test code = Normal 61482-0) [facility] HospitalPotassium-Stat [id number] 18:08:53 Test Item Value Reference Range Interpretation Comments Potassium (test code = 2823-3) 4.2 meq/L 3.6-5.5 Lab Interpretation (test code = Normal 95163-0) [facility] HospitalGlucose-Stat [id number] 18:08:53 Test Item Value Reference Range Interpretation Comments Glucose (test code = 2345-7) 101 mg/dL 70-110 Lab Interpretation (test code = Normal 12488-0) [facility] Hospital[facility]assium-Stat [id number] 18:08:53 Test Item Value Reference Range Interpretation Comments Potassium (test code = 2823-3) 4.2 meq/L 3.6-5.5 Lab Interpretation (test code = Normal 42129-5) [facility] HospitalGLUCOSE-STAT [id number] 18:08:53 Test Item Value Reference Range Interpretation Comments GLUCOSE RANDOM (BEAKER) (test code 101 mg/dL 70-110 = 652) POTASSIUM-STAT [id number] 18:08:53 Test Item Value Reference Range Interpretation Comments POTASSIUM (BEAKER) (test code = 4.2 meq/L 3.6-5.5 379) POCT-GLUCOSE [id number] 16:03:15 Test Item Value Reference Range Interpretation Comments POC-GLUCOSE METER 128 mg/dL 70-110 H : TESTED A T [facility] 6720 ([facility] (test code = [place], 1538) [address]: Senior Solutions Consultant/Techni dakota ID = [id number] for Keely House VANCOMYCIN LEVEL, [id number] 14:06:37 Test Item Value Reference Range Interpretation Comments VANCOMYCIN TROUGH (BEAKER) (test 10.9 ug/mL 10.0-20.0 code = 522) Senior Solutions Consultant ID - DBSARS-COV2/RT-PCR ([facility] LABS)2021-10-02 12:40:57 Test Item Value Reference Range Interpretation Comments SARS-COV2/RT-PCR (test Negative Not Detected, Negative, code = 4814088) See external report for linked test SARS-COV-2 PERFORMING LAB [facility] SHAUNA (test code = 4737508) Negative result for this test determines that [...] of the Act.Fact Sheet for Healthcare Prov iders:https://www.SwarmBuild/sites/default/files/product/documents/Fact_Sheet_HC _Fjscwfpxs_Kexg_CWKG-MoU-7.pdfFact Sheet for Healthcare Patients:https://www.SwarmBuild/sites/default/files/product/docume nts/Rlri_Ldmav_Zxgfgrtn_Mqvl_QIMK-JbE-0.pdfPerforming Laboratory:[facility], [place] [address]HM, DRAINAGE, ABDOMINAL 2021-10-02 11:36:00Reason for exam:->necrotizing pancreatitis wiht fluid collections in abdomenReason for exam:->pls send cultures (aerobic, anaerobic) and amylase from fluid (all are ordered) [facility] : 2000 Sex: MFINAL REPORT PROCEDURE: Drainage catheter placement Procedural PersonnelAttending physician(s): Marvin Jordan physician(s): NoneResident physician(s): NoneAdvanced practice provider(s): None Pre-procedure diagnosis: Necrotizing pancreatitisPost-procedure diagnosis: SameIndication:Leukocytosis with fluid collectionAdditional clinical history: None Complications: No immediate complications. IMPRESSION: Percutaneous placement of a 16 Mauritian drainage catheter into the anterior right upper [...] Daly MDReport Verified Date/Time: 10/02/2021 11:36:21 POCT-GLUCOSE [id number] 11:03:27 Test Item Value Reference Range Interpretation Comments POC-GLUCOSE METER 109 mg/dL 70-110 : TESTED A T [facility] [address] (Work 'n GearAKER) (test code = DONNA [place] [facility], 1538) [address]: Senior Solutions Consultant/Techni dakota ID = [id number] for QUEEN HONEYCUTT BLOOD [id number] 10:09:04 Test Item Value Reference Interpretation Comments Range CULTURE (BEAKER) STAPHYLOCOCCUS A From Dago farfanluisito (test code = 1095) HOMINIS Bottle On [...] gram 1123) positive cocci in clusters POCT-GLUCOSE [id number] 07:31:14 Test Item Value Reference Range Interpretation Comments POC-GLUCOSE METER 76 mg/dL 70-110 : TESTED A T [facility] 6720 (BEAKER) (test code = DONNA CHARLES [place], 1538) [address]: Senior Solutions Consultant/Techni dakota ID = [id number] for QUEEN JACOBSEN [id number] 07:25:22 Test Item Value Reference Range Interpretation Comments PHOSPHORUS (BEAKER) (test code = 3.1 mg/dL 2.3-4.7 604) Senior Solutions Consultant ID - HEPATIC FUNCTION [id number] 07:25:22 Test Item Value Reference Range Interpretation [...] (test code = 7 U/L 6-55 347) Senior Solutions Consultant ID - BASIC METABOLIC [id number] 07:25:21 Test Item Value Reference Range Interpretation [...] S NOT APPLICABLE FOR DIALYSIS PATIEN TS. Senior Solutions Consultant ID - [id number] 07:25:21 Test Item Value Reference Range Interpretation Comments MAGNESIUM (BEAKER) (test code = 1.6 mg/dL 1.6-2.6 627) Senior Solutions Consultant ID - RMCBC (HEMOGRAM ONLY)2021-10-02 06:32:43 Test [...] 0-0 (BEAKER) (test code = 413) POCT-GLUCOSE [id number] 21:46:52 Test Item Value Reference Range Interpretation Comments POC-GLUCOSE METER 229 mg/dL 70-110 H : TESTED A T [facility] 6720 (BEAKER) (test code = DONNA CHAR[place], 1538) [address]: Senior Solutions Consultant/Techni dakota ID = [id number] for KE BE, SAUDATU POCT-GLUCOSE [id number] 16:53:40 Test Item Value Reference Range Interpretation Comments POC-GLUCOSE METER 231 mg/dL 70-110 H : Notified RN/MD: (GENEVA) (test code = TESTED AT [facility] 6720 1538) [facility] [address]: Senior Solutions Consultant/Techni dakota ID = [id number] for Filippo Feldman 2D Echo W/Doppler(CW/PW/Color)2021-10-01 14:03:19 Test Item Value Reference Range Interpretation Comments Ejection Fraction Est EF is 55-60% (test code = 2574) Radiology Study observation (narrative) (test code = 20007-1) PXN (test code = Alejandro Hudson MD PXN) - 10/01/2021 Transthoracic Echocardiography Report (TTE) Demographics Patient Name YAMILE, Date of Study 10/01/2021 HARRISON Gender Male Visit Number [id number] Race Unknown Room Number 931 Number Date of 2000 Referring Physician Rebecca Echols Age 21 year(s) Slabber Garret Calderon CS [employer] Machine Operator Stefano Genao Interpreting Physician MAR Espinoza Procedure [...] Velocity: 2.26 m/s TR Gradient: 20.34 mmHg [facility] W/Doppler(CW/PW/Color)2021-10-01 14:03:19 Test Item Value Reference Range Interpretation Comments Ejection Fraction Est EF is 55-60% (test code = 2574) Radiology Study observation (narrative) (test code = 03751-7) PXN (test code = Alejandro Hudson MD PXN) - 10/01/2021 Transthoracic Echocardiography Report (TTE) Demographics Patient Name YAMILE, Date of Study 10/01/2021 HARRISON Gender Male Visit Number [id number] Race Unknown Room Number 931 Number Date of 2000 Referring Physician Rebecca Echols Age 21 year(s) Slabber Garret Calderon [facility] Rotary Screen Printing Machine Operator Stefano Genao Interpreting Physician MAR Espinoza Procedure [...] Velocity: 2.26 m/s TR Gradient: 20.34 mmHg [facility]PO[facility] [id number] 12:29:44 Test Item Value Reference Range Interpretation Comments POC-GLUCOSE METER 186 mg/dL 70-110 H : TESTED A T [facility] 6720 (GENEVA) (test code = DONNA [place], 1538) [address]: Senior Solutions Consultant/Techni dakota ID = [id number] for DELMAR COOPER CT, ABDOMEN - PELVIS, PANCREAS [id number] 09:34:00Please have IV contrast if not already part of protocol.Unlisted Reason for Exam - Click Yes and Enter Reason Below->No [facility] : 2000 Sex: [...] dimension. PANCREAS: No focal masses or ductal dilatation.Normal enhancement of the pancreatic parenchyma without pancreatic necrosis Superior Mesenteric Arter y: Patent Celiac [place]: Patent Celiac [place] and Hepatic Artery Anatomy: Conventional Gastroduodenal Artery: Patent Splenic Artery: Patent Main Portal Vein: Patent Portal Vein [place]: Patent Splenic Vein: Patent Superior Mesenteric Vein: Patent ADRENALS: No adrenal nodules.KIDNEYS/URETERS: No hydrone phrosis, stones, or masses.PELVIC ORGANS/BLADDER: Unremarkable. PERITONEUM/RETROPERITONEUM: There [...] right retroperitoneum, as before. No gross free ai r within the upper abdomen.LYMPH NODES: No lymphadenopathy.VESSELS: [...] Holloway MDReport Verified Date/Time: 10/01/2021 09:34:00 BLOOD [id number] 08:36:30 Test Item Value Reference Range Interpretation Comments CULTURE A From Aerobic An d (BEAKER) (test Anaerobic Bot tles Same code = 1095) organism has be en isolated from cultures(s) of the same body site and collection date . Repeat identifi cation and susceptibil ity testing perform ed only after consultat ion with the [facility].Refe r to previous cultur e of* - Staphylococcus hominis GRAM STAIN From aerobic and RESULT (BEAKER) anaerobic (test code = bottles: gram 1123) positive cocci in clusters BODY FLUID CULTURE + GRAM [id number] 08:15:57 Test Item Value Reference Range Interpretation [...] gram negative (BEAKER) (test code = rods 843039) [id number] 05:43:54 Test Item Value Reference Range Interpretation Comments PHOSPHORUS (BEAKER) (test code = 2.8 mg/dL 2.3-4.7 604) Senior Solutions Consultant ID - SHREE WHEPATIC FUNCTION [id number] 05:43:54 Test Item Value Reference Range Interpretation [...] (test code = 7 U/L 6-55 347) Senior Solutions Consultant ID Cherelle SHREE WBASIC METABOLIC [id number] 05:43:53 Test Item Value Reference Range Interpretation [...] S NOT APPLICABLE FOR DIALYSIS PATIEN TS. Senior Solutions Consultant ID - SHREE [id number] 05:43:53 Test Item Value Reference Range Interpretation Comments MAGNESIUM (BEAKER) (test code = 1.4 mg/dL 1.6-2.6 L 627) Senior Solutions Consultant ID Cherelle SWANN WCBC (HEMOGRAM ONLY)2021-10-01 05:31:02 [...] (BEAKER) (test code = 413) Prepare Leuko-Red [id number] 23:54:00 Test Item Value Reference Range Interpretation Comments CROSSMATCH (test code = 2264) COMPATIBLE Unit ABO (test code = A Pos 3407388) UNIT NUMBER (test code = [id number] 934-0) Status (test code = 2316896) [facility]INCP[facility] Blood Bank Product (test code RED BLOOD CELLS = 2263) PRODUCT CODE (test code = Z9404S79 933-2) [facility] Hospital[facility]are Leuko-Red [id number] 23:54:00 Test Item Value Reference Range Interpretation Comments CROSSMATCH (test code = 2264) COMPATIBLE Unit ABO (test code = A Pos 8405923) UNIT NUMBER (test code = [id number] 934-0) Status (test code = 9136209) TX_TIMEINCHART Blood Bank Product (test code RED BLOOD CELLS = 2263) PRODUCT CODE (test code = J5635W77 933-2) [facility] HospitalPOCT-GLUCOSE [id number] 22:44:20 Test Item Value Reference Range Interpretation Comments POC-GLUCOSE METER 162 mg/dL 70-110 H : TESTED A T [facility] 6720 (BEAKER) (test code = [facility], 1538) [address]: Senior Solutions Consultant/Techni dakota ID = [id number] for MARCOS WESTFALL POCT-GLUCOSE [id number] 17:43:25 Test Item Value Reference Range Interpretation Comments POC-GLUCOSE METER 145 mg/dL 70-110 H : TESTED A T [facility] 6720 (BEAKER) (test code = [facility], 1538) [address]: Senior Solutions Consultant/Techni dakota ID = [id number] for DELMAR COOPER POCT-GLUCOSE [id number] 12:01:10 Test Item Value Reference Range Interpretation Comments POC-GLUCOSE METER 147 mg/dL 70-110 H : TESTED A T [facility] 6720 (BEAKER) (test code = [facility], 1538) [address]: Senior Solutions Consultant/Techni dakota ID = [id number] for DELMAR COOPER POCT-GLUCOSE [id number] 07:49:49 Test Item Value Reference Range Interpretation Comments POC-GLUCOSE METER 131 mg/dL 70-110 H : TESTED A T [facility] 6720 (BEAKER) (test code = [facility], 1538) [address]: Senior Solutions Consultant/Techni dakota ID = [id number] for DELMAR COOPER COMPLEMENT COMPONENT [id number] 02:28:40 Test Item Value Reference Range Interpretation Comments C4 COMPLEMENT (BEAKER) (test code = 5 mg/dL 15-57 L 394) Senior Solutions Consultant ID - BSCOMPLEMENT COMPONENT [id number] 02:28:40 Test Item Value Reference Range Interpretation Comments C3 COMPLEMENT (BEAKER) (test code = 38 mg/dL 82-193 L 393) Senior Solutions Consultant ID - BSHEPATIC FUNCTION [id number] 02:27:21 Test Item Value Reference Range Interpretation [...] (test code = 11 U/L 6-55 347) Senior Solutions Consultant ID - [id number] 02:27:20 Test Item Value Reference Range Interpretation Comments MAGNESIUM (BEAKER) (test code = 1.6 mg/dL 1.6-2.6 627) Senior Solutions Consultant ID - [id number] 02:27:20 Test Item Value Reference Range Interpretation Comments PHOSPHORUS (BEAKER) (test code = 3.0 mg/dL 2.3-4.7 604) Senior Solutions Consultant ID - BSBASIC METABOLIC [id number] 02:27:19 Test Item Value Reference Range Interpretation [...] S NOT APPLICABLE FOR DIALYSIS PATIEN TS. Senior Solutions Consultant ID - BSVANCOMYCIN LEVEL, [id number] 02:21:15 Test Item Value Reference Range Interpretation Comments VANCOMYCIN TROUGH (BEAKER) (test 22.5 ug/mL 10.0-20.0 H code = 522) Senior Solutions Consultant ID - BSCBC (HEMOGRAM ONLY)2021-09-30 02:04:23 Test [...] H (BEAKER) (test code = 413) POCT-GLUCOSE [id number] 20:56:24 Test Item Value Reference Range Interpretation Comments POC-GLUCOSE METER 187 mg/dL 70-110 H : TESTED A T [facility] 6720 (BEAKER) (test code = DONNA [place], 1538) [address]: Senior Solutions Consultant/Techni dakota ID = [id number] for HERLINDA VELASQUEZ CREATININE, RANDOM [id number] 19:52:48 Test Item Value Reference Range Interpretation Comments CREATININE URINE (BEAKER) (test 38.8 mg/dL code = 375) Reference Range: No NormalsOperator ID - BSPROTEIN, RANDOM [id number] 19:52:48 Test Item Value Reference Range Interpretation Comments PROTEIN, URINE (BEAKER) (test code = 25 mg/dL 0-14 H 1569) Senior Solutions Consultant ID - BSURINALYSIS W/ [id number] 18:44:32 Test Item Value Reference Range Interpretation [...] = 1521) SOURCE(BEAKER) (test code = 2795) Senior Solutions Consultant ID - [auto]Senior Solutions Consultant ID - techAmylase, body [id number] 09:10:30 Test Item Value Reference Range Interpretation Comments Amylase, Fluid (test 18 U/L code = 1795-4) IDALIA (test code = Absence of reference IDALIA) range indicates that normals have not been defined.Assay performance has not been validated for this type of specimen. Senior Solutions Consultant ID - [id number] [facility] HospitalAmylase, body [id number] 09:10:30 Test Item Value Reference Range Interpretation Comments Amylase, Fluid (test 18 U/L code = 1795-4) IDALIA (test code = Absence of reference IDALIA) range indicates that normals have not been defined.Assay performance has not been validated for this type of specimen. Senior Solutions Consultant ID - [id number] [facility]AM[facility], BODY [id number] 09:10:30 Test Item Value Reference Range Interpretation Comments AMYLASE FLUID (BEAKER) (test code = 18 U/L 350) Absence of reference range indicates that normals have not been defined.Assay performance has not been validated for this type of specimen.Senior Solutions Consultant ID - [id number]-SVRZEBL [id number] 08:52:13 Test Item Value Reference Range Interpretation Comments POC-GLUCOSE METER 103 mg/dL 70-110 : TESTED A T [facility] 6720 (BEAKER) (test code = [place], 1538) [address]: Senior Solutions Consultant/Techni dakota ID = [id number] for DELMAR COOPER [id number] 05:58:12 Test Item Value Reference Range Interpretation Comments PHOSPHORUS (BEAKER) (test code = 3.7 mg/dL 2.3-4.7 604) Senior Solutions Consultant ID - BISI GHEPATIC FUNCTION [id number] 05:58:12 Test Item Value Reference Range Interpretation [...] (test code = 10 U/L 6-55 347) Senior Solutions Consultant ID - BISI GBASIC METABOLIC [id number] 05:58:11 Test Item Value Reference Range Interpretation [...] S NOT APPLICABLE FOR DIALYSIS PATIEN TS. Senior Solutions Consultant ID - BISI [id number] 05:58:11 Test Item Value Reference Range Interpretation Comments MAGNESIUM (BEAKER) (test code = 1.7 mg/dL 1.6-2.6 627) Senior Solutions Consultant ID - BISI GCBC (HEMOGRAM ONLY)2021-09-29 05:50:24 [...] H (GENEVA) (test code = 413) PROTHROMBIN [id number] 05:37:22 Test Item Value Reference Range Interpretation Comments PROTIME (GENEVA) 15.2 seconds 11.9-14.2 H (test code = 759) INR (GENEVA) (test 1.22 See_Comment [Automat ed message] code = 370) The system Cognitive Code generated this result transmitted ref erence range: <=5.90. The reference range was not used to int erpret this result as normal/abnormal . RECOMMENDED COUMADIN/WARFARIN INR THERAPY RANGESSTANDARD DOSE: 2.0 - 3.0 Includes: PROPHYLAXIS for venous thrombosis, systemic embolization; TREATMENT for venous thrombosis and/or pulmonary embolus.HIGH RISK: Target INR is 2.5-3.5 for patients with mechanical heart valves.POCT-GLUCOSE [id number] 20:50:31 Test Item Value Reference Range Interpretation Comments POC-GLUCOSE METER 159 mg/dL 70-110 H : Notified RN/MD: (GENEVA) (test code = TESTED AT [facility] 6720 1538) [facility], [address]: Senior Solutions Consultant/Techni dakota ID = [id number] for HEATH GRANDE RAD, CHEST, 1 VIEW, NON [id number] 19:15:00Reason for exam:->preop patient for OR tomorrowShould this be performed at the bedside?->Yes [facility] : 2000 Sex: MFINAL [...] Verified Date/Time: 09/28/2021 19:15:11 BLOOD CULTURE IDENTIFICATION [id number] 18:24:37 Test Item Value Reference Interpretation Comments Range LISTERIA MONOCYTOGENES Not detected Not detected (test code = 20160220) STAPHYLOCOCCUS (test Detected Not detected A Coagula se negative code = 4306305) Staph specie s (CoNS)- methici llin resistantFirst- line therapy: Vancom ycin MecA DETECTED Possible contamination. The likelihood of pathogenicity i s increased if th e organism is observed in multiple blood cultures obtain ed from separate venipunctures. Reference Range : Not Detected STAPHYLOCOCCUS AUREUS Not detected Not detected (test code = 4390596) STREPTOCOCCUS (test code Not detected Not detected = 8752670) STREPTOCOCCUS AGALACTIAE Not detected Not detected (GROUP B) (test code = 4849773) STREPTOCOCCUS PNEUMONIAE Not detected Not detected (test code = 2791215) STREPTOCOCCUS PYOGENES Not detected Not detected (GROUP A) (test code = 2984445) ACINETOBACTER BAUMANNII Not detected Not detected (test code = 4735169) HAEMOPHILUS INFLUENZAE Not detected Not detected (test code = 2116843) NEISSERIA MENINGITIDIS Not detected Not detected (test code = 5605278) ENTEROBACTERIACEAE (test Not detected Not detected code = 1436687) ENTEROBACTER CLOACOE Not detected Not detected COMPLEX (test code = 6318754) KLEBSIELLA OXYTOCA (test Not detected Not detected code = 9690190) KLEBSIELLA PNEUMONIAE Not detected Not detected (test code = 1650) PROTEUS (test code = Not detected Not detected 4451706) SERRATIA MARCESCENS Not detected Not detected (test code = 2279323) STACEY ALBICANS (test Not detected Not detected code = 2740362) STACEY GLABRATA (test Not detected Not detected code = 8510947) STACEY KRUSEI (test Not detected Not detected code = 6297036) STACEY PARAPSILOSIS Not detected Not detected (test code = 2607092) STACEY TROPICALIS (test Not detected Not detected code = 9901195) ESCHERICHIA COLI (test Not detected Not detected code = 3245302) METHICILLIN-RESISTANCE Detected Not detected A Note: Antimicrobial GENE (test code = resistance can 1921666) occur via multi ple mechanisms. A N ot Detected result for the FilmArray antimicrobial resistance gene assays does not indicate antimicrobial susceptibility. Subculturing is required for species identification and susceptibility testing of isolates. VANCOMYCIN-RESISTANCE GENE (test code = 7325504) CARBAPENEM-RESISTANCE GENE (test code = 8447493) ENTEROCOCCUS-BEAKER Not detected Not detected (test code = 5441864) PSEUDOMONAS Not detected Not detected AERUGINOSA-BEAKER (test code = 1886179) Other bacteria and resistance markers not targeted by this PCR panel cannot be excluded; therefore clinical correlation and follow up of serology, culture results, and other molecular studies is required. The results are not intended to be used as the sole means for clinical diagnosis or patient management decisions. This sample was tested at the [facility] Molecular Diagnostics Laboratory using the OneGoodLove.comArray Blood Culture ID Panel. It is FDA cleared and has been verified and approved by the [facility] for clinical use. This laboratory is CLIA-certified and College ofAmerican Pathologists (CAP)-accredited to perform high complexity testing.HEMOGLOBIN AND [id number] 17:52:48 Test Item Value Reference Range Interpretation Comments HEMOGLOBIN (BEAKER) (test code = 7.2 GM/DL 13.7-17.5 L 410) HEMATOCRIT (BEAKER) (test code = 24.6 % 40.1-51.0 L 411) Senior Solutions Consultant ID - [id number] 12:45:54 Test Item Value Reference Range Interpretation Comments Amylase (test code = 32 U/L 25-125 1798-8) IDALIA (test code = IDALIA) Senior Solutions Consultant ID - PIAYA L Lab Interpretation (test Normal code = 68983-1) [facility] Hospital[facility]ylase2022-05-12 12:45:54 Test Item Value Reference Range Interpretation Comments Amylase (test code = 32 U/L 25-125 1798-8) IDALIA (test code = IDALIA) Senior Solutions Consultant ID - PIAYA L Lab Interpretation (test Normal code = 51238-5) [facility] HospitalAMYLASE2022-05-12 12:45:54 Test Item Value Reference Range Interpretation Comments AMYLASE (BEAKER) (test code = 349) 32 U/L 25-125 Senior Solutions Consultant ID - MARIBEL LPOCT-GLUCOSE [id number] 12:21:36 Test Item Value Reference Range Interpretation Comments POC-GLUCOSE METER 89 mg/dL 70-110 : TESTED A T [facility] 6720 (BEAKER) (test code = DONNA [place] [facility], 1538) [address]: Senior Solutions Consultant/Techni dakota ID = [id number] for Milena Wei POCT-GLUCOSE [id number] 07:58:39 Test Item Value Reference Range Interpretation Comments POC-GLUCOSE METER 101 mg/dL 70-110 : TESTED A T [facility] 6720 (BEAKER) ([facility], = 1538) [address]: Senior Solutions Consultant/Techni dakota ID = [id number] for Martha Bell (CELLAVISION MANUAL DIFF)2021-09-28 06:59:01 [...] CONCENTRATION Adequate (CELLAVISION)(BEAKER) (test code = 3438) Senior Solutions Consultant ID - [id number] ID - Rebecca Elizondo comments: Slide comments: CBC W/PLT COUNT & AUTO [id number] 06:59:00 Test Item Value Reference Range Interpretation [...] 0-0 (BEAKER) (test code = 413) SARS-COV2/RT-PCR ([facility])2021-09-28 05:26:25 Test Item Value Reference Range Interpretation Comments SARS-COV2/RT-PCR Negative Negative The SARS-Co V-2 target (test code = nucleic acids a re not 2597811) detected in thi s specimen. Negative result [...] revoked sooner. Fact Sheet for Healthcare Providers: https://www.Pricebets.co m/Documents/Xpert%20Xpress%20SARS%20CoV-2/Fact%20Sheets/500-0832%86NRNB-HPX-8%20 HEALTHCARE%20PROVIDERS%20FACT%20SHEET.pdf Fact Sheet for Healthcare Patients: https://www.PingThings/Documents/Xpert%20Xp ress%20SARS%20CoV-2/Fact%20Sheets/452-3801%88XMBG-JBM-6%20PATIENT%20FACT%20SHEET .pdfBASIC METABOLIC [id number] 05:15:58 Test Item Value Reference Range Interpretation [...] S NOT APPLICABLE FOR DIALYSIS PATIEN TS. Senior Solutions Consultant ID - [id number] 04:33:33 Test Item Value Reference Range Interpretation Comments PHOSPHORUS (BEAKER) (test code = 4.1 mg/dL 2.3-4.7 604) Senior Solutions Consultant ID - BSHEPATIC FUNCTION [id number] 04:33:33 Test Item Value Reference Range Interpretation [...] (test code = 11 U/L 6-55 347) Senior Solutions Consultant ID - [id number] 04:33:32 Test Item Value Reference Range Interpretation Comments MAGNESIUM (BEAKER) (test code = 1.5 mg/dL 1.6-2.6 L 627) Senior Solutions Consultant ID - BSLACTIC ACID, [id number] 04:27:30 Test Item Value Reference Range Interpretation Comments LACTATE BLOOD VENOUS (2) (BEAKER) 1.04 mmol/L 0.50-2.20 (test code = 2872) Senior Solutions Consultant ID - BSPROTHROMBIN TIME/[id number] 04:23:49 Test Item Value Reference Range Interpretation Comments PROTIME (BEAKER) 15.5 seconds 11.9-14.2 H (test code = 759) INR (BEAKER) (test 1.25 See_Comment [Automat ed message] code = 370) The system Cognitive Code generated this result transmitted ref erence range: <=5.90. The reference range was not used to int erpret this result as normal/abnormal . RECOMMENDED COUMADIN/WARFARIN INR THERAPY RANGESSTANDARD DOSE: 2.0 - 3.0 Includes: PROPHYLAXIS for venous thrombosis, systemic embolization; TREATMENT for venous thrombosis and/or pulmonary embolus.HIGH RISK: Target INR is 2.5-3.5 for patients with mechanical heart valves.CT, [id number] 00:01:00Unlisted Reason for Exam - Click Yes and Enter Reason Below->YesUnlisted Reason for Exam->necrotizing panc on OSH imagingIs this for enterography?->NoWill this procedure require oral contrast?->No [facility] 2000 Sex: MFINAL [...] CONCENTRATION Adequate (CELLAVISION)(BEAKER) (test code = 3438) Senior Solutions Consultant ID - Romelia Tamez comments: Slide comments:COMPREHENSIVE METABOLIC [id number] 22:28:04 Test Item Value Reference Range Interpretation [...] S NOT APPLICABLE FOR DIALYSIS PATIEN TS. Senior Solutions Consultant ID - [id number] 22:28:04 Test Item Value Reference Range Interpretation Comments LIPASE (BEAKER) (test code = 749) 24 U/L 8-78 Senior Solutions Consultant ID - BSLACTIC ACID, [id number] 22:22:02 Test Item Value Reference Range Interpretation Comments LACTATE BLOOD VENOUS 1.20 mmol/L 0.50-2.20 Specime n slightly (2) (BEAKER) (test hemolyzed code = 1532) Senior Solutions Consultant ID - BSPROTHROMBIN TIME/[id number] 22:18:27 Test Item Value Reference Range Interpretation Comments PROTIME (BEAKER) 15.2 seconds 11.9-14.2 H (test code = 759) INR (BEAKER) (test 1.22 See_Comment [Automat ed message] code = 370) The system Cognitive Code generated this result transmitted ref erence range: <=5.90. The reference range was not used to int erpret this result as normal/abnormal . RECOMMENDED COUMADIN/WARFARIN INR THERAPY RANGESSTANDARD DOSE: 2.0 - 3.0 Includes: PROPHYLAXIS for venous thrombosis, systemic embolization; TREATMENT for venous thrombosis and/or pulmonary embolus.HIGH RISK: Target INR is 2.5-3.5 for patients with mechanical heart valves.CBC W/PLT COUNT & AUTO [id number] 22:11:15 Test Item Value Reference Range Interpretation [...] = 413) RAD, CHEST, 1 VIEW, NON [id number] 21:03:00Reason for exam:->ABNORMAL IMAGING RESULTShould this be performed at the bedside?->Yes [facility] 2000 Sex: [...] IMPRESSION:No acute cardiopulmonary process. Signed: Andrés Holloway [facility] Verified Date/Time: 09/27/2021 21:03:24 - CT ABDOMEN W W/O CONTRAST 2021-09-27 15:48:00 [facility] : 2000 Sex: M FAX: Willard Vaughn Jr [phone] [place]: St: REG Name: VANGIE OVALLE [facility] Robert : 2000 Age/S: 21/M [address] Unit: [id number] Loc: [place] [address] Phys: Willard Crouch Jr, MD Acct: [id number] Dis Date: Status: REG CLI PHONE #: [phone] Exam Date: 09/27/2021 1530 FAX #: [phone]: PANCREATITIS EXAMS: CPT CODE: [id number] CT ABDOMEN W W/O CONTRAST 91880 EXAM: CT ABDOMEN WITH AND WITHOUT CONTRAST [...] mGy-cm. GFR greater than 60 FINDINGS: Lung bas es: Bibasilar atelectasis. The heart is slightly enlarged with small pericardial effusion. Hepatobiliary: Markedly fatty liver. No obvious liver mass. Multiple splenic granulomas. No calcified gallstones or biliary obstruction. Pancreas: The pancreas is slightly heterogeneous in enhancement with irregular margins. Extensive enhancing peripancreatic fluid with large amount of extraluminal air is seenextending into the lesser sac and insinuating along [...] Mild dependent anasarca. PAGE 1 Signed Report (CONTINUED)FAX: Willard Vaughn Jr [phone] [place]: St: REG Name: VANGIE OVALLE [facility] Robert : 2000 Age/S: 21/M [address] Unit: [id number] Loc: [place] [address] Phys: Willard Crouch Jr, MD Acct: [id number] Dis Date: Status: REG CLI PHONE #: [phone] Exam Date: 09/27/2021 1530 FAX #: [phone] Reason: PANCREATITIS EXAMS: CPT CODE: [id number] CT ABDOMEN W W/O CONTRAST 15064 (Continued) IMPRESSION: 1. Slight heterogeneous enhancement of the pancreas with disproportionate amount of extensiveenhancing loculated fluid and large amount of extraluminal [...] CODING PURPOSES ONLY RESULT CODE: CVR at 3789 Reported and signed by: Vandana Madison MD CC: Willard Crouch Jr Technologist: LAMBERTO ARTEAGA Trnscrd Dt/Tm: 09/27/2021 (1547) t.SDR.PXC Orig Print D/T: S: 09/27/2021 (5130 PAGE 2 Signed ReportBEDSIDE [id number] 15:20:00 Test Item Value Reference Range Interpretation Comments BEDSIDE CREATININE (test code = 0.7 MG/DL 0.5-1.0 N CREATBED) Fecal [id number] 22:49:02 Test Item Value Reference Range Interpretation Comments Fecal Leukocytes (test No fecal leukocytes No fecal leukocytes code = 94790-8) seen seen Lab Interpretation Normal (test code = 61351-1) [facility] [id number] 22:49:02 Test Item Value Reference Range Interpretation Comments Fecal Leukocytes (test No fecal leukocytes No fecal leukocytes code = 52757-9) seen seen Lab Interpretation Normal (test code = 98265-6) [facility] [id number] 22:49:02 Test Item Value Reference Range Interpretation Comments FECAL LEUKOCYTES No fecal leukocytes No fecal leukocytes (BEAKER) (test code = seen seen 992) POCT-GLUCOSE [id number] 16:36:44 Test Item Value Reference Range Interpretation Comments POC-GLUCOSE METER 204 mg/dL 70-110 H : TESTED A T [facility] 6720 (BEAKER) (test code = [facility], 1538) 50357: Senior Solutions Consultant/Techni dakota ID = [id number] for Co arsenio, Susanna POCT-GLUCOSE [id number] 11:38:42 Test Item Value Reference Range Interpretation Comments POC-GLUCOSE METER 122 mg/dL 70-110 H : TESTED A T [facility] 6720 (BEAKER) (test code = [facility], 1538) 29912: Senior Solutions Consultant/Techni dakota ID = [id number] for Co ok, Susanna BASIC METABOLIC [id number] 08:51:41 Test Item Value Reference Range Interpretation [...] S NOT APPLICABLE FOR DIALYSIS PATIEN TS. Senior Solutions Consultant ID - DBPOCT-GLUCOSE [id number] 07:42:10 Test Item Value Reference Range Interpretation Comments POC-GLUCOSE METER 100 mg/dL 70-110 : TESTED A T [facility] 6720 (BEAKER) (test code = [facility], 1538) 69426: Senior Solutions Consultant/Techni dakota ID = [id number] for Co ok, Susanna [id number] 06:05:53 Test Item Value Reference Range Interpretation Comments MAGNESIUM (BEAKER) (test code = 1.5 mg/dL 1.6-2.6 L 627) Senior Solutions Consultant ID - DBPOCT-GLUCOSE [id number] 22:10:06 Test Item Value Reference Range Interpretation Comments POC-GLUCOSE METER 226 mg/dL 70-110 H : TESTED A T [facility] 6720 (BEAKER) (test code = [facility], [facility]8) 75744: Senior Solutions Consultant/Techni dakota ID = [id number] for Guanakito Banks (contract), Maribel i POCT-GLUCOSE [id number] 17:25:35 Test Item Value Reference Range Interpretation Comments POC-GLUCOSE METER 167 mg/dL 70-110 H : TESTED A T [facility] 6720 (BEAKER) (test code = [facility], 1538) 98979: Senior Solutions Consultant/Techni dakota ID = [id number] for Co ok, Susanna POCT-GLUCOSE [id number] 11:53:31 Test Item Value Reference Range Interpretation Comments POC-GLUCOSE METER 84 mg/dL 70-110 : TESTED A T [facility] 6720 (BEAKER) (test code = [facility], 1538) 86679: Senior Solutions Consultant/Techni dakota ID = [id number] for Cook , Susanna POCT-GLUCOSE [id number] 07:47:58 Test Item Value Reference Range Interpretation Comments POC-GLUCOSE METER 91 mg/dL 70-110 : TESTED A T [facility] 6720 (BEAKER) (test code = [facility], 1538) 61208: Senior Solutions Consultant/Techni dakota ID = [id number] for Cook , Susanna [id number] 05:26:53 Test Item Value Reference Range Interpretation Comments FERRITIN (BEAKER) (test code = 1277.07 ng/mL 5.00-275.00 H 361) Senior Solutions Consultant ID - ALVINA [id number] 05:16:29 Test Item Value Reference Range Interpretation Comments MAGNESIUM (BEAKER) 1.5 mg/dL 1.6-2.6 L Specimen slightly (test code = 627) hemolyzed Senior Solutions Consultant ID - BSCOMPREHENSIVE METABOLIC [id number] 05:16:29 Test Item Value Reference Range Interpretation [...] S NOT APPLICABLE FOR DIALYSIS PATIEN TS. Senior Solutions Consultant ID - BSCBC W/PLT COUNT & AUTO [id number] 05:09:25 Test Item Value Reference Range Interpretation [...] PERCENT (BEAKER) (test code = 2801) POCT-GLUCOSE [id number] 23:08:33 Test Item Value Reference Range Interpretation Comments POC-GLUCOSE METER 180 mg/dL 70-110 H : TESTED A T [facility] 6720 (BEAKER) (test code = [facility] [place], 1538) 16715: Senior Solutions Consultant/Techni dakota ID = [id number] for CAROLINA LENZ Giardia [id number] 19:26:40 Test Item Value Reference Range Interpretation Comments STATUS: FINAL (QUEST) (test code = 0200196) RESULT: Not Detected Reference Range :Not (QUEST) (test Detected code = 20151121) Source: (test STOOL code = 92911-8) Comment: See Below NOTE: Due to (test code = intermittent edding, ) one negativesam ple does not necess arily rule out the presenceof a pa rasitic infection. IDALIA (test Performing Lab *JESSENIA code = IDALIA) [facility], [address] [place], [place] [id number] Angela Barcenas MD [facility] Hospital[facility]ardia [id number] 19:26:40 Test Item Value Reference Range Interpretation Comments STATUS: FINAL (QUEST) (test code = 2707086) RESULT: Not Detected Reference Range :Not (QUEST) (test Detected code = 0818879) Source: (test STOOL code = 03230-7) Comment: See Below NOTE: Due to (test code = intermittent edding, ) one negativesam ple does not necess arily rule out the presenceof a pa rasitic infection. IDALIA (test Performing Lab *JESSENIA code = IDALIA) [facility], [address] [place], [place] [phone] Angela Barcenas MD [facility] HospitalPOCT-GLUCOSE [id number] 15:54:55 Test Item Value Reference Range Interpretation Comments POC-GLUCOSE METER 302 mg/dL 70-110 H : TESTED A T [facility] 6720 (BEAKER) (test code = [place] [facility], 1538) 93338: Senior Solutions Consultant/Techni dakota ID = [id number] for Kevin Smith POCT-GLUCOSE [id number] 11:59:06 Test Item Value Reference Range Interpretation Comments POC-GLUCOSE METER 118 mg/dL 70-110 H : TESTED A T [facility] 6720 (BEAKER) (test code = [facility] [place] [facility], 1538) 50207: Senior Solutions Consultant/Techni dakota ID = [id number] for Kevin Smith Ova and Parasite [id number] 10:29:02See scanned reportCHI Livermore SanitariumOva and Parasite [id number] 10:29:02See scanned report [facility]iumPOCT-GLUCOSE [id number] 08:15:03 Test Item Value Reference Range Interpretation Comments POC-GLUCOSE METER 153 mg/dL 70-110 H : TESTED A T [facility] 6720 (BEAKER) (test code = [facility] [place] [facility], 1538) 89979: Senior Solutions Consultant/Techni dakota ID = [id number] for Kevin Smith [id number] 05:39:21 Test Item Value Reference Range Interpretation Comments FERRITIN (BEAKER) (test code = 2065.19 ng/mL 5.00-275.00 H 361) Senior Solutions Consultant ID - ALVINA MOperator ID - ALVINA [id number] 04:33:07 Test Item Value Reference Range Interpretation Comments MAGNESIUM (BEAKER) (test code = 1.7 mg/dL 1.6-2.6 627) Senior Solutions Consultant ID - ALVINA MCOMPREHENSIVE METABOLIC [id number] 04:33:06 Test Item Value Reference Range Interpretation [...] S NOT APPLICABLE FOR DIALYSIS PATIEN TS. Senior Solutions Consultant ID - ALVINA MCBC W/PLT COUNT & AUTO [id number] 04:05:50 Test Item Value Reference Range Interpretation [...] PERCENT (BEAKER) (test code = 2801) POCT-GLUCOSE [id number] 22:26:51 Test Item Value Reference Range Interpretation Comments POC-GLUCOSE METER 263 mg/dL 70-110 H : TESTED A T [facility] 6720 (BEAKER) (test code = [facility] [place] [facility], 1538) 08324: Senior Solutions Consultant/Techni dakota ID = [id number] for Mayte xiomaraCherry escoto POCT-GLUCOSE [id number] 17:52:33 Test Item Value Reference Range Interpretation Comments POC-GLUCOSE METER 320 mg/dL 70-110 H : TESTED A T [facility] 6720 (BEAKER) (test code [facility], = 1538) 82456: Senior Solutions Consultant/Techni dakota ID = [id number] for SD GALLO [id number] 16:04:21 Test Item Value Reference Range Interpretation Comments MAGNESIUM (BEAKER) (test code = 1.6 mg/dL 1.6-2.6 627) Senior Solutions Consultant ID - BSPOCT-GLUCOSE [id number] 13:44:43 Test Item Value Reference Range Interpretation Comments POC-GLUCOSE METER 243 mg/dL 70-110 H : TESTED A T [facility] 6720 (BEAKER) (test code [facility], = 1538) 47918: Senior Solutions Consultant/Techni dakota ID = [id number] for SD GALLO ANTI-DNA [id number] 12:19:23 Test Item Value Reference Range Interpretation Comments ANTI-DNA TITER (BEAKER) (test code = :80 1553) DOUBLE-STRANDED DNA (DSDNA) [id number] 12:19:05 Test Item Value Reference Range Interpretation Comments ANTI-DNA DS (BEAKER) (test code = Positive Negative 1055) SARS-COV2/RT-PCR ([facility])2021-09-19 10:54:11 Test Item Value Reference Range Interpretation Comments SARS-COV2/RT-PCR (test Negative Not Detected, Negative, code = 8397624) See external report for linked test SARS-COV-2 PERFORMING LAB [facility] SHAUNA (test code = 5236385) Negative result for this test determines that [...] of the Act.Fact Sheet for Healthcare Prov iders:https://www.[employer]arm[employer]/sites/default/files/product/documents/Fact_Sheet_HC _Fesfftnql_Cdsp_XCPV-DaW-2.pdfFact Sheet for Healthcare Patients:https://www.[employer]/sites/default/files/product/docume nts/Kwwk_Oorwd_Gsswrlex_Xswq_ARLE-UaG-6.pdfPerforming Laboratory:[facility], [place] [address]OPXU-ZAZASKR METER 2021-09-19 08:21:15 Test Item Value Reference Range Interpretation Comments POC-GLUCOSE METER 228 mg/dL 70-110 H : TESTED A T [facility] 6720 (BEAKER) (test code [facility], = 1538) 90986: Senior Solutions Consultant/Techni dakota ID = [id number] for DOMENICO JOSEDONNY Cherelle STRICKLANDSD [id number] 08:08:54 Test Item Value Reference Range Interpretation Comments MAGNESIUM (BEAKER) (test code = 1.4 mg/dL 1.6-2.6 L 627) Senior Solutions Consultant ID - BRANDIN CCOMPREHENSIVE METABOLIC [id number] 08:08:53 Test Item Value Reference Range Interpretation [...] S NOT APPLICABLE FOR DIALYSIS PATIEN TS. Senior Solutions Consultant ID - BRANDIN [id number] 07:30:23 Test Item Value Reference Range Interpretation Comments FERRITIN (BEAKER) (test code = 2272.75 ng/mL 5.00-275.00 H 361) Senior Solutions Consultant ID - SHREE WOperator ID - SHREE WCBC W/PLT COUNT & AUTO [id number] 06:07:16 Test Item Value Reference Range Interpretation [...] PERCENT (BEAKER) (test code = 2801) POCT-GLUCOSE [id number] 21:42:25 Test Item Value Reference Range Interpretation Comments POC-GLUCOSE METER 218 mg/dL 70-110 H : TESTED A T [facility] 6720 (BEAKER) (test code = [facility] [place] [facility], 1538) 10669: Senior Solutions Consultant/Techni dakota ID = [id number] for ABE TEJADA POCT-GLUCOSE [id number] 17:08:14 Test Item Value Reference Range Interpretation Comments POC-GLUCOSE METER 148 mg/dL 70-110 H : TESTED A T [facility] 6720 (BEAKER) (test code [facility], = 1538) 82382: Senior Solutions Consultant/Techni dakota ID = [id number] for SD GALLOANEOUS LAB [id number] 14:26:25 Test Item Value Reference Range Interpretation Comments SCAN RESULT (test code = See scanned report [id number]) See scanned reportCMV PCR, [id number] 14:23:40 Test Item Value Reference Range Interpretation [...] and its performance characteristics determined by the [facility] Pathol ogy Department, Section of Molecular [...] mg/dL 70-110 H : TESTED A T [facility] 6720 (GENEVA) (test code [facility], = 1538) 23488: Senior Solutions Consultant/Techni dakota ID = [id number] for SD GALLO MISCELLANEOUS LAB [id number] 09:55:02 Test Item Value Reference Range Interpretation Comments SCAN RESULT (test code = See scanned report [id number]) See scanned reportPOCT-GLUCOSE [id number] 09:36:32 Test Item Value Reference Range Interpretation Comments POC-GLUCOSE METER 99 mg/dL 70-110 : TESTED A T [facility] 6720 (BEAKER) (test code = [place] [facility], 1538) 54684: Senior Solutions Consultant/Techni dakota ID = [id number] for SD GALLO COMPREHENSIVE METABOLIC [id number] 07:28:53 Test Item Value Reference Range Interpretation [...] S NOT APPLICABLE FOR DIALYSIS PATIEN TS. Senior Solutions Consultant ID - [id number] 07:28:52 Test Item Value Reference Range Interpretation Comments MAGNESIUM (BEAKER) 1.3 mg/dL 1.6-2.6 L Specimen slightly (test code = 627) hemolyzed Senior Solutions Consultant ID - DBCBC W/PLT COUNT & AUTO [id number] 07:26:37 Test Item Value Reference Range Interpretation [...] PERCENT (BEAKER) (test code = 2801) POCT-GLUCOSE [id number] 22:29:02 Test Item Value Reference Range Interpretation Comments POC-GLUCOSE METER 207 mg/dL 70-110 H : TESTED A T [facility] 6720 (BEAKER) (test code = [facility], [facility]) 31523: Senior Solutions Consultant/Techni dakota ID = [id number] for VIRGILIO MARSHASHISH CAROLINA POCT-GLUCOSE [id number] 17:18:02 Test Item Value Reference Range Interpretation Comments POC-GLUCOSE METER 228 mg/dL 70-110 H : TESTED A T [facility] 6720 (BEAKER) (test code = [facility], [facility]8) 64523: Senior Solutions Consultant/Techni dakota ID = [id number] for FA ITH, CASEY POCT-GLUCOSE [id number] 12:29:44 Test Item Value Reference Range Interpretation Comments POC-GLUCOSE METER 174 mg/dL 70-110 H : TESTED A T [facility] 6720 (BEAKER) (test code = [facility], 1538) 14307: Senior Solutions Consultant/Techni dakota ID = [id number] for FA ITH, CASEY POCT-GLUCOSE [id number] 12:15:50 Test Item Value Reference Range Interpretation Comments POC-GLUCOSE METER 111 mg/dL 70-110 H : TESTED A T [facility] 6720 (BEAKER) (test code = [facility], 1538) 12022: Senior Solutions Consultant/Techni dakota ID = [id number] for MASON LINK GI Pathogen Profile by PCR -ID [id number] 08:09:12 Test Item Value Reference Range Interpretation Comments CAMPYLOBACTER PCR (test Not detected Not detected code = 66763-7) PLESIOMONAS SHIGELLOIDES Not detected Not detected (PCR) (test code = 47142-7) SALMONELLA (PCR) (test Not detected Not detected code = 47324-5) YERSINIA ENTEROCOLITICA Not detected Not detected (PCR) (test code = 51784-9) VIBRIO CHOLERAE (PCR) Not detected Not detected (test code = 27778-5) ENTEROAGGREGATIVE E. Not detected Not detected COLI (EAEC) BY PCR (test code = 91979-9) ENTEROPATHOGENIC E. COLI Not detected Not detected (EPEC) BY PCR (test code = 99391-9) ENTEROTOXIGENIC E. COLI Not detected Not detected (ETEC) LT/ST BY PCR (test code = 61064-6) SHIGA-LIKE Not detected Not detected TOXIN-PRODUCING E. COLI (STEC) STX1/STX2 (test code = 00572-7) E. COLI O157 (PCR) (test code = 62155-9) SHIGELLA/ENTEROINVASIVE Not detected Not detected E. COLI (EIEC) BY PCR (test code = 20689-0) CRYPTOSPORIDIUM (PCR) Not detected Not detected (test code = 86675-7) CYCLOSPORA CAYETANENSIS Not detected Not detected (PCR) (test code = 76892-8) ENTAMOEBA HISTOLYTICA Not detected Not detected (PCR) (test code = 05787-1) GIARDIA LAMBLIA (PCR) Not detected Not detected (test code = 38715-0) ADENOVIRUS F 40/41 (PCR) Not detected Not detected (test code = 94807-1) ASTROVIRUS (PCR) (test Not detected Not detected code = 09487-0) NOROVIRUS GI/GII (PCR) Not detected Not detected (test code = 64361-0) ROTAVIRUS A (PCR) (test Not detected Not detected code = 86654-6) SAPOVIRUS (I, II, IV, V) Not detected Not detected BY PCR (test code = 80130-9) VIBRIO Not detected Not detected (PARAHAEMOLYTICUS, VULNIFICUS) (test code = 51966-3) IDALIA (test code = IDALIA) Other viruses, parasites and bacteria not targeted by this PCR panel cannot be excluded; therefore clinical correlation and follow up of serology, culture results, and other molecular studies is required. The results are not intended to be used as the sole means for clinical diagnosis or patient management decisions. This sample was tested at the [facility] Molecular Diagnostics Laboratory using the [employer] Gastrointestinal Panel. It is FDA cleared and has been verified and approved by the [facility] Molecular Diagnostics Laboratory for clinical use. This laboratory is CLIA-certified and [employer] [place] (CAP)-accredited to perform high complexity testing. [facility] Path[facility] Profile by PCR -ID [id number] 08:09:12 Test Item Value Reference Range Interpretation Comments CAMPYLOBACTER (PCR) Not detected Not detected (test code = 23937-9) PLESIOMONAS SHIGELLOIDES Not detected Not detected (PCR) (test code = 36727-0) SALMONELLA (PCR) (test Not detected Not detected code = 34033-3) YERSINIA ENTEROCOLITICA Not detected Not detected (PCR) (test code = 67679-1) VIBRIO CHOLERAE (PCR) Not detected Not detected (test code = 38832-5) ENTEROAGGREGATIVE E. Not detected Not detected COLI (EAEC) BY PCR (test code = 36726-4) ENTEROPATHOGENIC E. COLI Not detected Not detected (EPEC) BY PCR (test code = 20287-9) ENTEROTOXIGENIC E. COLI Not detected Not detected (ETEC) LT/ST BY PCR (test code = 69833-7) SHIGA-LIKE Not detected Not detected TOXIN-PRODUCING E. COLI (STEC) STX1/STX2 (test code = 81584-3) E. COLI O157 (PCR) (test code = 87363-0) SHIGELLA/ENTEROINVASIVE Not detected Not detected E. COLI (EIEC) BY PCR (test code = 07373-9) CRYPTOSPORIDIUM (PCR) Not detected Not detected (test code = 49884-6) CYCLOSPORA CAYETANENSIS Not detected Not detected (PCR) (test code = 29836-1) ENTAMOEBA HISTOLYTICA Not detected Not detected (PCR) (test code = 89863-1) GIARDIA LAMBLIA (PCR) Not detected Not detected (test code = 47150-7) ADENOVIRUS F 40/41 (PCR) Not detected Not detected (test code = 69864-9) ASTROVIRUS (PCR) (test Not detected Not detected code = 45679-0) NOROVIRUS GI/GII (PCR) Not detected Not detected (test code = 02297-4) ROTAVIRUS A (PCR) (test Not detected Not detected code = 94286-7) SAPOVIRUS (I, II, IV, V) Not detected Not detected BY PCR (test code = 12855-7) VIBRIO Not detected Not detected (PARAHAEMOLYTICUS, VULNIFICUS) (test code = 06995-8) IDALIA (test code = IDALIA) Other viruses, parasites and bacteria not targeted by this PCR panel cannot be excluded; therefore clinical correlation and follow up of serology, culture results, and other molecular studies is required. The results are not intended to be used as the sole means for clinical diagnosis or patient management decisions. This sample was tested at the [facility] Molecular Diagnostics Laboratory using the [employer] Gastrointestinal Panel. It is FDA cleared and has been verified and approved by the [facility] Molecular Diagnostics Laboratory for clinical use. This laboratory is CLIA-certified and [employer] (CAP)-accredited to perform high complexity testing. [facility] BY [id number] 08:09:12 Test Item Value Reference Range Interpretation Comments CAMPYLOBACTER (PCR) (test code = Not detected Not detected 20151122) PLESIOMONAS SHIGELLOIDES (PCR) Not detected Not detected (test code = 20151126) SALMONELLA (PCR) (test code = Not detected Not detected ) YERSINIA ENTEROCOLITICA (PCR) Not detected Not detected (test code = 7273133) VIBRIO CHOLERAE (PCR) (test code Not detected Not detected = 9922863) ENTEROAGGREGATIVE E. COLI (EAEC) Not detected Not detected BY PCR (test code = 9254421) ENTEROPATHOGENIC E. COLI (EPEC) Not detected Not detected BY PCR (test code = 6336214) ENTEROTOXIGENIC E. COLI (ETEC) Not detected Not detected LT/ST BY PCR (test code = 1247895) SHIGA-LIKE TOXIN-PRODUCING E. Not detected Not detected COLI (STEC) STX1/STX2 (test code = 4497734) E. COLI O157 (PCR) (test code = 20151225) SHIGELLA/ENTEROINVASIVE E. COLI Not detected Not detected (EIEC) BY PCR (test code = 2329598) CRYPTOSPORIDIUM (PCR) (test code Not detected Not detected = 20151227) CYCLOSPORA CAYETANENSIS (PCR) Not detected Not detected (test code = 4635644) ENTAMOEBA HISTOLYTICA (PCR) Not detected Not detected (test code = 5602887) GIARDIA LAMBLIA (PCR) (test code Not detected Not detected = 20160120) ADENOVIRUS F 40/41 (PCR) (test Not detected Not detected code = 6283722) ASTROVIRUS (PCR) (test code = Not detected Not detected 20160122) NOROVIRUS GI/GII (PCR) (test Not detected Not detected code = 20160123) ROTAVIRUS A (PCR) (test code = Not detected Not detected 20160124) SAPOVIRUS (I, II, IV, V) BY PCR Not detected Not detected (test code = 20160125) VIBRIO (PARAHAEMOLYTICUS, Not detected Not detected VULNIFICUS) (test code = 3931586) Other viruses, parasites and bacteria not targeted by this PCR panel cannot be excluded; therefore clinical correlation and follow up of serology, culture results, and other molecular studies is required. The results are not intended to be used as the sole means for clinical diagnosis or patient management decisions. This sample was tested at the [facility] Molecular Diagnostics Laboratory using the OneGoodLove.com[employer] Gastrointestinal Panel. It is FDA cleared and has been verified and approved by the [facility] Molecular Diagnostics Laboratory for clinical use. This laboratory is CLIA-certified and College ofAmerican Pathologists (CAP)-accredited to perform high complexity testing.POCT-GLUCOSE [id number] 08:04:19 Test Item Value Reference Range Interpretation Comments POC-GLUCOSE METER 141 mg/dL 70-110 H : TESTED A T [facility] 6720 (GENEVA) (test code = [place], 1538) 0[address]: Senior Solutions Consultant/Techni dakota ID = [id number] for CASEY KERNS [id number] 07:09:55 Test Item Value Reference Range Interpretation Comments MAGNESIUM (GENEVA) (test code = 1.6 mg/dL 1.6-2.6 627) Senior Solutions Consultant ID - DBCOMPREHENSIVE METABOLIC [id number] 07:09:54 Test Item Value Reference Range Interpretation [...] S NOT APPLICABLE FOR DIALYSIS PATIEN TS. Senior Solutions Consultant ID - [id number] 06:53:54 Test Item Value Reference Range Interpretation Comments FERRITIN (BEAKER) (test code = 1616.89 ng/mL 5.00-275.00 H 361) Senior Solutions Consultant ID - SHREE WCBC W/PLT COUNT & AUTO [id number] 06:20:10 Test Item Value Reference Range Interpretation [...] 0-1 H PERCENT (BEAKER) (test code = 2805) POCT-GLUCOSE [id number] 22:18:47 Test Item Value Reference Range Interpretation Comments POC-GLUCOSE METER 255 mg/dL 70-110 H : TESTED A T [facility] 6720 (BEAKER) (test code = [facility], 1538) 17055: Senior Solutions Consultant/Techni dakota ID = [id number] for Cherry Morrissey POCT-GLUCOSE [id number] 17:41:27 Test Item Value Reference Range Interpretation Comments POC-GLUCOSE METER 160 mg/dL 70-110 H : TESTED A T [facility] 6720 (BEAKER) (test code = [facility], 1538) 59493: Senior Solutions Consultant/Techni dakota ID = [id number] for MASON LINK POCT-GLUCOSE [id number] 11:47:30 Test Item Value Reference Range Interpretation Comments POC-GLUCOSE METER 126 mg/dL 70-110 H : TESTED A T [facility] 6720 (BEAKER) (test code = [facility], 1538) 87819: Senior Solutions Consultant/Techni dakota ID = [id number] for MASON LINK [id number] 11:09:58 Test Item Value Reference Range Interpretation Comments FERRITIN (BEAKER) (test code = 1216.61 ng/mL 5.00-275.00 H 361) Senior Solutions Consultant ID - FATMATA WBLOOD [id number] 10:00:55 Test Item Value Reference Range Interpretation Comments CULTURE (BEAKER) (test No growth in 5 days code = 1095) The specimen volume collected for this blood culture was below the optimum (10 mL per bottle or 20 mL total). Use of lower volumes may adversely affect recovery and/or detection times of some organisms.CBC W/PLT COUNT & AUTO [id number] 07:57:54 Test Item Value Reference Range Interpretation [...] (BEAKER) (test code = 2801) COMPREHENSIVE METABOLIC [id number] 07:37:26 Test Item Value Reference Range Interpretation [...] S NOT APPLICABLE FOR DIALYSIS PATIEN TS. Senior Solutions Consultant ID - [id number] 07:37:26 Test Item Value Reference Range Interpretation Comments MAGNESIUM (BEAKER) (test code = 1.5 mg/dL 1.6-2.6 L 627) Senior Solutions Consultant ID - DBClostridium difficile GDH [id number] 23:10:55 Test Item Value Reference Range Interpretation Comments C. Difficle Toxin Negative Negative (test code = 2572906804) C. Difficile GDH Positive Negative A C. difficil e Antigen (test code = present but toxin 6668836211) not detected. Indicates colonization wi th non-toxigenic [...] of kit performance was done by the [facility] Microbiology Lab prior to clinical use. Lab Interpretation Abnormal (test code = 98274-2) [facility] [id number] 23:10:55 Test Item Value Reference Range Interpretation Comments C. Difficle Toxin Negative Negative (test code = 9108360547) C. Difficile GDH Positive Negative A C. difficil e Antigen (test code = present but toxin 1729665295) not detected. Indicates colonization wi th non-toxigenic [...] of kit performance was done by the [facility] Microbiology Lab prior to clinical use. Lab Interpretation Abnormal (test code = 18385-1) [facility] DI[facility]ICILE GDH [id number] 23:10:55 Test Item Value Reference Range Interpretation Comments CDT TOXIN (test code Negative Negative = 8896494924) CDT GDH ANTIGEN Positive Negative A C. difficile present but (test code = toxin not detec hernandez. 4518857108) Indicates colon ization with non-toxige luis antonio [...] of kit performance was done by the [facility] MicrobiologyLab prior to clinical use.POCT-GLUCOSE [id number] 21:40:07 Test Item Value Reference Range Interpretation Comments POC-GLUCOSE METER 144 mg/dL 70-110 H : TESTED A T [facility] 6720 (GENEVA) (test code = [place], 1538) 05156: Senior Solutions Consultant/Techni dakota ID = [id number] for ABE TEJADA POCT-GLUCOSE [id number] 19:13:38 Test Item Value Reference Range Interpretation Comments POC-GLUCOSE METER 71 mg/dL 70-110 : TESTED A T [facility] 6720 (BEAKER) (test code = [facility], 1538) 05704: Senior Solutions Consultant/Techni dakota ID = [id number] for MASON URIOSTEGUI POCT-GLUCOSE [id number] 17:28:46 Test Item Value Reference Range Interpretation Comments POC-GLUCOSE METER 156 mg/dL 70-110 H : TESTED A T [facility] 6720 (BEAKER) (test code = [facility] [place], 1538) 58426: Senior Solutions Consultant/Techni dakota ID = [id number] for MASON LINK [id number] 17:03:09 Test Item Value Reference Range Interpretation Comments MAGNESIUM (BEAKER) (test code = 1.3 mg/dL 1.6-2.6 L 627) Senior Solutions Consultant ID - ADMINBASIC METABOLIC [id number] 17:03:08 Test Item Value Reference Range Interpretation [...] S NOT APPLICABLE FOR DIALYSIS PATIEN TS. Senior Solutions Consultant ID - ADMINVenous doppler leg, [id number] 16:49:56Ejection FractionSLEH ECHO HEARTLAB [facility] CenterVenous doppler leg, [id number] 16:49:56Ejection FractionSLEH ECHO HEARTLAB [facility] CenterBLOOD [id number] 12:01:39 Test Item Value Reference Range Interpretation Comments CULTURE (BEAKER) (test No growth in 5 days code = 1095) POCT-GLUCOSE [id number] 11:07:13 Test Item Value Reference Range Interpretation Comments POC-GLUCOSE METER 173 mg/dL 70-110 H : TESTED A T [facility] 6720 (BEAKER) (test code = [place], 1538) 02919: Senior Solutions Consultant/Techni dakota ID = [id number] for MASON LINK [id number] 08:10:09 Test Item Value Reference Range Interpretation Comments MAGNESIUM (BEAKER) (test code = 1.3 mg/dL 1.6-2.6 L 627) Senior Solutions Consultant ID - DBCOMPREHENSIVE METABOLIC [id number] 08:10:08 Test Item Value Reference Range Interpretation [...] S NOT APPLICABLE FOR DIALYSIS PATIEN TS. Senior Solutions Consultant ID - DBCBC W/PLT COUNT & AUTO [id number] 07:40:05 Test Item Value Reference Range Interpretation [...] H PERCENT (BEAKER) (test code = 2801) [id number] 06:53:41 Test Item Value Reference Range Interpretation Comments FERRITIN (BEAKER) (test code = 1099.45 ng/mL 5.00-275.00 H 361) Senior Solutions Consultant ID - SHREE WPOCT-GLUCOSE [id number] 21:23:35 Test Item Value Reference Range Interpretation Comments POC-GLUCOSE METER 196 mg/dL 70-110 H : TESTED A T [facility] 6720 (BEAKER) (test code = [facility], 1538) 33845: Senior Solutions Consultant/Techni dakota ID = [id number] for Cherry Morrissey POCT-GLUCOSE [id number] 18:12:17 Test Item Value Reference Range Interpretation Comments POC-GLUCOSE METER 240 mg/dL 70-110 H : TESTED A T [facility] 6720 (BEAKER) (test code [facility], = 1538) 17006: Senior Solutions Consultant/Techni dakota ID = [id number] for SD GALLO [id number] 16:01:42 Test Item Value Reference Range Interpretation Comments FERRITIN (BEAKER) (test code = 1526.03 ng/mL 5.00-275.00 H 361) Senior Solutions Consultant ID - DBHEPATIC FUNCTION [id number] 14:17:51 Test Item Value Reference Range Interpretation [...] (test code = 45 U/L 6-55 347) Senior Solutions Consultant ID - BSPOCT-GLUCOSE [id number] 12:52:27 Test Item Value Reference Range Interpretation Comments POC-GLUCOSE METER 165 mg/dL 70-110 H : TESTED A T [facility] 6720 (BEAKER) ([facility], = 1538) 04487: Senior Solutions Consultant/Techni dakota ID = [id number] for DOMENICO JOSEDONNY Cherelle MARCO ASD BASIC METABOLIC [id number] 12:24:38 Test Item Value Reference Range Interpretation [...] S NOT APPLICABLE FOR DIALYSIS PATIEN TS. Senior Solutions Consultant ID - BSOperator ID - [id number] 12:24:33 Test Item Value Reference Range Interpretation Comments MAGNESIUM (BEAKER) (test code = 1.3 mg/dL 1.6-2.6 L 627) Senior Solutions Consultant ID - BSOperator ID - BSPOCT-GLUCOSE [id number] 08:43:31 Test Item Value Reference Range Interpretation Comments POC-GLUCOSE METER 83 mg/dL 70-110 : TESTED A T [facility] 6720 ([facility]) (test code = [facility], 153) 41869: Senior Solutions Consultant/Techni dakota ID = [id number] for SD GALLO POCT-GLUCOSE [id number] 22:05:41 Test Item Value Reference Range Interpretation Comments POC-GLUCOSE METER 190 mg/dL 70-110 H : TESTED A T [facility] 6720 ([facility]) (test code = [facility], 1538) 33533: Senior Solutions Consultant/Techni dakota ID = [id number] for SA RICH, ABE POCT-GLUCOSE [id number] 16:33:29 Test Item Value Reference Range Interpretation Comments POC-GLUCOSE METER 221 mg/dL 70-110 H : TESTED A T [facility] 6720 ([facility]) (test code = [facility], [facility]) 89620: Senior Solutions Consultant/Techni dakota ID = [id number] for Co [place], Susanna POCT-GLUCOSE [id number] 12:08:57 Test Item Value Reference Range Interpretation Comments POC-GLUCOSE METER 127 mg/dL 70-110 H : TESTED A T [facility] 6720 ([facility]) (test code = [facility], 153) 05362: Senior Solutions Consultant/Techni dakota ID = [id number] for [place], Susanna POCT-GLUCOSE [id number] 09:48:13 Test Item Value Reference Range Interpretation Comments POC-GLUCOSE METER 99 mg/dL 70-110 : TESTED A T [facility] 6720 ([facility]) (test code = [facility], 153) 05587: Senior Solutions Consultant/Techni dakota ID = [id number] for SUMEET COPELANDMARIELA LALY HEMOGLOBIN [id number] 09:05:11 Test Item Value Reference Range Interpretation Comments HEMOGLOBIN A1C 6.1 % See_Comment H [Automated m essage] ELECTROPHORESIS ([facility]) The system which (test code = 3811) generated this result transmitted ref erence range: <=5.6%. The reference range was not used to int erpret this result as normal/abnormal . "The A1c is measured using a [facility]-certified method. HbA1c value equal to or greater than 6.5% as thediagnosis cutoff for diabetes. An HbA1c value of 5.7- 6.4% indicates increased risk for diabetes (prediabetes)."Senior Solutions Consultant ID - ADM COMPREHENSIVE METABOLIC [id number] 06:09:47 Test Item Value Reference Range Interpretation [...] S NOT APPLICABLE FOR DIALYSIS PATIEN TS. Senior Solutions Consultant ID - [id number] 05:58:32 Test Item Value Reference Range Interpretation Comments MAGNESIUM (BEAKER) (test code = 1.3 mg/dL 1.6-2.6 L 627) Senior Solutions Consultant ID - [id number] 05:58:32 Test Item Value Reference Range Interpretation Comments PHOSPHORUS (BEAKER) (test code = 2.8 mg/dL 2.3-4.7 604) Senior Solutions Consultant ID - BSCBC W/PLT COUNT & AUTO [id number] 05:24:08 Test Item Value Reference Range Interpretation [...] PERCENT (BEAKER) (test code = 2801) POCT-GLUCOSE [id number] 21:20:25 Test Item Value Reference Range Interpretation Comments POC-GLUCOSE METER 186 mg/dL 70-110 H : TESTED A T [facility] 6720 (BEAKER) (test code = [place], 1538) 30987: Senior Solutions Consultant/Techni dakota ID = [id number] for JUAN JOSÉ GIRON [id number] 18:54:47 Test Item Value Reference Range Interpretation Comments FERRITIN (BEAKER) (test code = 1911.44 ng/mL 5.00-275.00 H 361) Senior Solutions Consultant ID - BSCOMPREHENSIVE METABOLIC [id number] 18:12:55 Test Item Value Reference Range Interpretation [...] S NOT APPLICABLE FOR DIALYSIS PATIEN TS. Senior Solutions Consultant ID - [id number] 18:12:55 Test Item Value Reference Range Interpretation Comments MAGNESIUM (BEAKER) (test code = 1.4 mg/dL 1.6-2.6 L 627) Senior Solutions Consultant ID - [id number] 18:12:55 Test Item Value Reference Range Interpretation Comments PHOSPHORUS (BEAKER) (test code = 3.0 mg/dL 2.3-4.7 604) Senior Solutions Consultant ID - BSCOMPLEMENT COMPONENT [id number] 18:09:15 Test Item Value Reference Range Interpretation Comments C4 COMPLEMENT (BEAKER) (test code = 4 mg/dL 15-57 L 394) Senior Solutions Consultant ID - BSCOMPLEMENT COMPONENT [id number] 18:09:15 Test Item Value Reference Range Interpretation Comments C3 COMPLEMENT (BEAKER) (test code = 31 mg/dL 82-193 L 393) Senior Solutions Consultant ID - BSCBC W/PLT COUNT & AUTO [id number] 17:46:55 Test Item Value Reference Range Interpretation [...] PERCENT (BEAKER) (test code = 2801) POCT-GLUCOSE [id number] 17:32:52 Test Item Value Reference Range Interpretation Comments POC-GLUCOSE METER 216 mg/dL 70-110 H : TESTED A T [facility] 6720 (BEAKER) (test code = [place], 1538) 81459: Senior Solutions Consultant/Techni dakota ID = [id number] for Je ssie, Kevin RAD, SHOULDER, COMPLETE (MIN 2 VIEWS), [id number] 14:45:00Reason for exam:- >longterm steroid use, eval [facility]N [facility] : 2000 Sex: MFINALREPORT CLINICAL HISTORY: long term acute care registered nurse steroid use, eval AVN TECHNIQUE: Three viewsof the bilateral shoulder COMPARISON: None IMPRESSION: No focal osseous lesions are seen in either shoulder. There is no fracture or dislocation. Signed: Darcie Williamson Verified Date/Time: 09/12/2021 14:45:48 Reading Location: [facility] Radiology Reading Room RAD, SHOULDER, COMPLETE (MIN 2 VIEWS), RIGHT 2021-09-12 14:45:00Reason for exam:->longterm steroid use, eval AVN [facility] : 2000 Sex: MFINAL REPORT CLINICAL HISTORY: long term acute care registered nurse steroid use, 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 There is no fracture or dislocation. Signed: Darcie Williamson Verified Date/Time: 09/12/2021 14:45:48 Reading Location: [facility] Radiology Reading Room RAD, HIPS, 2 VIEWS, [id number] 14:29:00Reason for exam:->long term acute care registered nurse steroid use, eval [facility]N [facility] : 2000 Sex: MFINAL REPORT CLINICAL HISTORY: longterm steroid use, eval AVN TECHNIQUE: 2 views of the bilateral hips COMPARISON: None IMPRESSION: There is bilateral hip joint space narrowing. Subtle sclerosis and flattening of the left femoral head is suspected, possibly representing avascular necrosis given the clinical history. The right femoral head contour appears preserved. Signed: Darcie Williamson MDReport Verified Date/Time: 09/12/2021 14:29:16 Reading Location: [facility] Radiology Reading Room POCT-GLUCOSE [id number] 11:50:18 Test Item Value Reference Range Interpretation Comments POC-GLUCOSE METER 129 mg/dL 70-110 H : TESTED A T [facility] 6720 (GENEVA) (test code = [place], 1538) 38213: Senior Solutions Consultant/Techni dakota ID = [id number] for Kevin Smith RAD, HAND, 3 VIEWS, [id number] 11:47:00Reason for exam:->[facility] : 2000 Sex: [...] No discreteerosions are seen. Signed: Darcie Williamson [facility] Verified Date/Time: 09/12/2021 11:47:37 Reading Location: [facility] Radiology Reading Room Electronically signed by: DARCIE WILLIAMSON M.D. on 022 11:47 AMRAD, HAND, 3 VIEWS, [id number] 11:47:00Reason for exam:- >rheumatoid arthritis [facility] : 2000 Sex: [...] No discreteerosions are seen. Signed: Darcie Williamson MDReport Verified Date/Time: 09/12/2021 11:47:37 Reading Location: [facility] Radiology Reading Room Electronically signed by: DARCIE WILLIAMSON M.D. on 022 11:47 AMPOCT-GLUCOSE [id number] 10:21:03 Test Item Value Reference Range Interpretation Comments POC-GLUCOSE METER 88 mg/dL 70-110 : TESTED A T [facility] 6720 (BEAKER) (test code = [facility], 153) 73664: Senior Solutions Consultant/Techni dakota ID = [id number] for Destiny ie, Kevin PROTEIN, RANDOM [id number] 06:25:49 Test Item Value Reference Range Interpretation Comments PROTEIN, URINE (BEAKER) (test code 177 mg/dL 0-14 H = 1569) Senior Solutions Consultant ID - DBCREATININE, RANDOM [id number] 06:25:48 Test Item Value Reference Range Interpretation Comments CREATININE URINE (BEAKER) (test 106.5 mg/dL code = 375) Reference Range: No NormalsOperator ID - DBPOCT-GLUCOSE [id number] 22:19:10 Test Item Value Reference Range Interpretation Comments POC-GLUCOSE METER 219 mg/dL 70-110 H : TESTED A T [facility] 6720 (BEAKER) (test code = [facility], 153) 87972: Senior Solutions Consultant/Techni dakota ID = [id number] for Cherry Morrissey POCT-GLUCOSE [id number] 20:21:14 Test Item Value Reference Range Interpretation Comments POC-GLUCOSE METER 257 mg/dL 70-110 H : TESTED A T [facility] 6720 (BEAKER) (test code = [facility], 153) 91161: Senior Solutions Consultant/Techni dakota ID = [id number] for Vidal estrellaDeborah dickens [place], [id number] 16:58:00Unlisted Reason for Exam - Click Yes and Enter Reason Below->Noeval prior pancreatitis for further necrosis or abscess, worsening leukocytosis and tachycardiaIs this for enterography?->NoWill this procedure require oral contrast?->No [facility] 2000 Sex: MFINAL [...] above including severe hepatic steatosis Signed: Manish Novakeport Verified Date/Time: 09/11/2021 16:58:30 -GLUCOSE [id number] 11:46:33 Test Item Value Reference Range Interpretation Comments POC-GLUCOSE METER 277 mg/dL 70-110 H : TESTED A T [facility] 6720 (BEAKER) (test code = DONNA Ishaan [facility], 1538) 17444: Senior Solutions Consultant/Techni dakota ID = [id number] for JO MILLER COMPREHENSIVE METABOLIC [id number] 10:25:23 Test Item Value Reference Range Interpretation [...] S NOT APPLICABLE FOR DIALYSIS PATIEN TS. Senior Solutions Consultant ID - [id number] 10:13:10 Test Item Value Reference Range Interpretation Comments MAGNESIUM (BEAKER) (test code = 1.9 mg/dL 1.6-2.6 627) Senior Solutions Consultant ID - [id number] 10:13:10 Test Item Value Reference Range Interpretation Comments PHOSPHORUS (BEAKER) (test code = 2.5 mg/dL 2.3-4.7 604) Senior Solutions Consultant ID - DBCBC W/PLT COUNT & AUTO [id number] 10:02:45 Test Item Value Reference Range Interpretation [...] PERCENT (BEAKER) (test code = 2801) POCT-GLUCOSE [id number] 07:31:40 Test Item Value Reference Range Interpretation Comments POC-GLUCOSE METER 310 mg/dL 70-110 H : TESTED A T [facility] 6720 (BEAKER) (test code = [facility], 1538) 92192: Senior Solutions Consultant/Techni dakota ID = [id number] for JO MILLER BLOOD [id number] 03:00:54 Test Item Value Reference Range Interpretation Comments CULTURE (BEAKER) (test No growth in 5 days code = 1095) BLOOD [id number] 03:00:53 Test Item Value Reference Range Interpretation Comments CULTURE (BEAKER) (test No growth in 5 days code = 1095) POCT-GLUCOSE [id number] 21:11:52 Test Item Value Reference Range Interpretation Comments POC-GLUCOSE METER 286 mg/dL 70-110 H : TESTED A T [facility] 6720 (BEAKER) (test code [facility], = 1538) 62454: Senior Solutions Consultant/Techni dakota ID = [id number] for BERNY SMYTH [id number] 12:52:50 Test Item Value Reference Range Interpretation Comments PROCALCITONIN (GENEVA) (test code 5.84 ng/mL <0.05 H = 3036) SEPSIS RISK (ng/mL)Low: 0.05-0.50Intermediate: 0.51-2.00High: >=2.01APTT 2021-09-10 12:05:26 Test Item Value Reference Range Interpretation Comments PARTIAL THROMBOPLASTIN TIME 27.5 seconds 22.5-36.0 (GENEVA) (test code = 760) PROTHROMBIN [id number] 12:04:41 Test Item Value Reference Range Interpretation Comments PROTIME (GENEVA) 16.4 seconds 11.9-14.2 H (test code = 759) INR (GENEVA) (test 1.34 See_Comment [Automat ed message] code = 370) The system Cognitive Code generated this result transmitted ref erence range: <=5.90. The reference range was not used to int erpret this result as normal/abnormal . RECOMMENDED COUMADIN/WARFARIN INR THERAPY RANGESSTANDARD DOSE: 2.0 - 3.0 Includes: PROPHYLAXIS for venous thrombosis, systemic embolization; TREATMENT for venous thrombosis and/or pulmonary embolus.HIGH RISK: Target INR is 2.5-3.5 for patients with mechanical heart valves.LACTIC ACID, [id number] 11:42:21 Test Item Value Reference Range Interpretation Comments LACTATE BLOOD VENOUS 1.13 mmol/L 0.50-2.20 Specime n slightly (2) (BEAKER) (test hemolyzed code = 2872) Senior Solutions Consultant ID - DBRAD, CHEST, 1 VIEW, NON [id number] 09:41:00Reason for exam:- >eval for pnaShould this be performed at the bedside?->Yes [facility] DOB: 2000 Sex: MFINAL REPORT Chest, one view HISTORY: Evaluate for pneumonia Comparison: 09/07/2021 Findings: Lungs: Mild bilateral interstitial opacities, likely pulmonary venous congestion. Stable bibasilar airspace disease. Heart: Normal in size. Pleura: Moderate right and small left pleural effusions, similar to previous examination. No pneumothorax is apparent. Bones: Unremarkable. Lines/tubes: Previous feeding tube has been removed. Signed: Taz Lunsford Verified Date/Time: 09/10/2021 09:41:13 Reading Location: [address] Consult Reading Room (CELLAVISION MANUAL DIFF)2021-09-10 [...] CONCENTRATION Adequate (CELLAVISION)(BEAKER) (test code = 3438) Senior Solutions Consultant ID - [id number] ID - Rebecca Elizondo comments: Slide comments: CBC W/PLT COUNT & AUTO [id number] 07:30:14 Test Item Value Reference Range Interpretation [...] (BEAKER) (test code = 413) COMPREHENSIVE METABOLIC [id number] 05:40:15 Test Item Value Reference Range Interpretation [...] S NOT APPLICABLE FOR DIALYSIS PATIEN TS. Senior Solutions Consultant ID - MARIBEL [id number] 05:38:41 Test Item Value Reference Range Interpretation Comments MAGNESIUM (BEAKER) (test code = 1.5 mg/dL 1.6-2.6 L 627) Senior Solutions Consultant ID - MARIBEL [id number] 05:38:41 Test Item Value Reference Range Interpretation Comments PHOSPHORUS (BEAKER) (test code = 1.7 mg/dL 2.3-4.7 L 604) Senior Solutions Consultant ID Cherelle LÓPEZ LPOCT-GLUCOSE [id number] 21:08:40 Test Item Value Reference Range Interpretation Comments POC-GLUCOSE METER 113 mg/dL 70-110 H : TESTED A T [facility] 6720 (BEAKER) (test code = [facility] Ishaan [facility], 1538) 65045: Senior Solutions Consultant/Techni dakota ID = [id number] for SOMMER LYNN POCT-GLUCOSE [id number] 16:29:13 Test Item Value Reference Range Interpretation Comments POC-GLUCOSE METER 123 mg/dL 70-110 H : TESTED A T [facility] 6720 (BEAKER) (test code = [place] [facility], 1538) [address]: Senior Solutions Consultant/Techni dakota ID = [id number] for MELANI MILLERLENE COMPREHENSIVE METABOLIC [id number] 15:30:31 Test Item Value Reference Range Interpretation [...] S NOT APPLICABLE FOR DIALYSIS PATIEN TS. Senior Solutions Consultant ID - ALVINA M2D Echo W/O Doppler(No Doppler)2021-09-09 14:32:05 Test Item Value Reference Range Interpretation Comments Ejection Fraction Est EF is 55-60% (test code = 2574) Radiology Study observation (narrative) (test code = 14588-1) PXN (test code = Sarah Travis PXN) - 09/09/2021 Transthoracic Echocardiography Report (TTE) Demographics Patient Name YAMILE, Date of Study 09/09/2021 HARRISON Gender Male Visit Number [id number] Race Unknown Room Number C622 Number Date of 2000 Referring Babita Cano Physician Age 21 year(s) Slabber Sandy Wilde, [facility] Interpreting Sarah Travis MD Physician Procedure Type [...] CO: 6.81 l/min LVOT CI: 3.35 l/min/m^2 [facility] Echo W/O Doppler(No Doppler)2021-09-09 14:32:05 Test Item Value Reference Range Interpretation Comments Ejection Fraction Est EF is 55-60% (test code = 2574) Radiology Study observation (narrative) (test code = 99448-5) PXN (test code = Sarah Travis PXN) - 09/09/2021 Transthoracic Echocardiography Report (TTE) Demographics Patient Name YAMILE, Date of Study 09/09/2021 HARRISON Gender Male Visit Number [id number] Race Unknown Room Number C622 Number Date of 2000 Referring Babita Cano Physician Age 21 year(s) Slabber Sandy Wilde, [facility] Interpreting Sarah Travis MD Physician Procedure Type [...] CO: 6.81 l/min LVOT CI: 3.35 l/min/m^2 [facility] [id number] 11:38:39 Test Item Value Reference Range Interpretation Comments POC-GLUCOSE METER 137 mg/dL 70-110 H : TESTED A T [facility] 6720 (BEAKER) (test code = [facility], [facility]) [address]: Senior Solutions Consultant/Techni dakota ID = [id number] for LIENCherelleJO RIOS POCT-GLUCOSE [id number] 06:55:56 Test Item Value Reference Range Interpretation Comments POC-GLUCOSE METER 151 mg/dL 70-110 H : TESTED A T [facility] 6720 (BEAKER) (test code = [facility], [facility]) 13[address]: Senior Solutions Consultant/Techni dakota ID = [id number] for CODY MORENO, VALSA POCT-GLUCOSE [id number] 21:19:46 Test Item Value Reference Range Interpretation Comments POC-GLUCOSE METER 174 mg/dL 70-110 H : TESTED A T [facility] 6720 (BEAKER) (test code = [facility], 153) 48896: Senior Solutions Consultant/Techni dakota ID = [id number] for CODY MORENO, VALSA POCT-GLUCOSE [id number] 19:52:47 Test Item Value Reference Range Interpretation Comments POC-GLUCOSE METER 173 mg/dL 70-110 H : TESTED A T [facility] 6720 (BEAKER) (test code = [facility], 153) 22121: Senior Solutions Consultant/Techni dkaota ID = [id number] for JENNIFER ARCINIEGA MRSA [id number] 15:07:47 Test Item Value Reference Range Interpretation Comments Result (test code = 6463-4) No MRSA isolated [facility] [id number] 15:07:47 Test Item Value Reference Range Interpretation Comments Result (test code = 6463-4) No MRSA isolated [facility] [id number] 15:07:47 Test Item Value Reference Range Interpretation Comments CULTURE (BEAKER) (test code No MRSA isolated = 1095) POCT-GLUCOSE [id number] 11:36:26 Test Item Value Reference Range Interpretation Comments POC-GLUCOSE METER 268 mg/dL 70-110 H : TESTED A T [facility] 6720 (AKER) (test code = [facility], 1538) 46748: Senior Solutions Consultant/Techni dakota ID = [id number] for JENNIFER ARCINIEGA POCT-GLUCOSE [id number] 09:21:21 Test Item Value Reference Range Interpretation Comments POC-GLUCOSE METER 283 mg/dL 70-110 H : TESTED A T [facility] 6720 [facility] (test code = [facility], 1538) 38931: Senior Solutions Consultant/Techni dakota ID = [id number] for JENNIFER ARCINIEGA ANTI-MITOCHONDRIAL AB, REFLEX TO [id number] 07:58:16 Test Item Value Reference Range Interpretation Comments SCAN RESULT (test code = 6696601) POCT-GLUCOSE [id number] 05:15:53 Test Item Value Reference Range Interpretation Comments POC-GLUCOSE METER 266 mg/dL 70-110 H : TESTED A T [facility] 6720 (BEAKER) (test code = [facility], 1538) 09166: Senior Solutions Consultant/Techni dakota ID = [id number] for KAVITHA ESCOBAR COMPREHENSIVE METABOLIC [id number] 04:59:08 Test Item Value Reference Range Interpretation [...] S NOT APPLICABLE FOR DIALYSIS PATIEN TS. Senior Solutions Consultant ID - ALVINA [id number] 04:55:48 Test Item Value Reference Range Interpretation Comments MAGNESIUM (BEAKER) (test code = 1.7 mg/dL 1.6-2.6 627) Senior Solutions Consultant ID - ALVINA [id number] 04:55:48 Test Item Value Reference Range Interpretation Comments PHOSPHORUS (BEAKER) (test code = 1.6 mg/dL 2.3-4.7 L 604) Senior Solutions Consultant ID - ALVINA MCBC W/PLT COUNT & AUTO [id number] 04:52:53 Test Item Value Reference Range Interpretation [...] PERCENT (BEAKER) (test code = 2801) POCT-GLUCOSE [id number] 23:21:41 Test Item Value Reference Range Interpretation Comments POC-GLUCOSE METER 268 mg/dL 70-110 H : TESTED A T [facility] 6720 (BEAKER) (test code = [place], 1538) [address]: Senior Solutions Consultant/Techni dakota ID = [id number] for KAVITHA ESCOBAR POCT-GLUCOSE [id number] 18:55:01 Test Item Value Reference Range Interpretation Comments POC-GLUCOSE METER 240 mg/dL 70-110 H : TESTED A T [facility] 6720 (BEAKER) (test code = [place], 1538) 650[address]: Senior Solutions Consultant/Techni dakota ID = [id number] for As Isiah mckeon PERIPHERAL BLOOD SMEAR - PATHOLOGIST [id number] 16:19:01 Test Item Value Reference Range Interpretation [...] MORPHOLOGY No Satellitosis (BEAKER) (test code = 064917) PLT MORPHOLOGY See comment Decreased in number (BEAKER) (test with normal code = 193943) morphology. R are to Occasional larg e forms. [facility]-PATHOLOGIST- Yvan Campoverde MD 6112 (BEAKER) (electronic (test code = signature) 2849) Urinalysis w/Microscopic + Reflex to [id number] 14:42:51 Test Item Value Reference Range Interpretation Comments Color, UA (test code Yellow = 5778-6) Clarity, UA (test Clear code = 5767-9) Specific [place], UA 1.025 1.001-1.035 (test code = 5811-5) pH, UA (test code = 6.0 5.0-8.0 5803-2) Protein, UA (test 100 mg/dL Negative A code = 24259-7) Glucose, UA (test 70 mg/dL Negative A code = 365) Ketones, UA (test 40 mg/dL Negative A code = 2514-8) Bilirubin, UA (test Negative Negative code = 92228-3) Blood, UA (test code Large Negative A = 40039-1) Nitrite, UA (test Negative Negative code = 5802-4) Leukocytes, UA (test Negative Negative code = 5799-2) Urobilinogen, UA 0.2 mg/dL 0.2-1.0 (test code = 79926-5) RBC, UA (test code = 30 See_Comment [Autom ated 37959-3) message] The system which generated this result [...] Bacteria, UA (test None Seen code = 73189-6) Mucus (test code = Few 8247-9) Hyaline Casts, UA 1 See_Comment [Automate d (test code = 76598-2) messag e] The system which generated this result transmit hernandez reference range : /LPF. The reference range was not used to interpret this result as normal/abnormal . Casts (test code = 3 See_Comment [Automat ed 9842-6) message] The system which generated this result transmit hernandez reference range : /LPF. The reference range was not used to interpret this result as normal/abnormal . Crystals, Urine (test None Seen code = 07157-2) Specimen Source (test code = 2795) IDALIA (test code = IDALIA) Senior Solutions Consultant ID - [auto]Senior Solutions Consultant ID - tech Lab Interpretation Abnormal (test code = 27110-6) [facility]/Microscopic + Reflex to Culture 2021-09-07 14:42:51 Test Item Value Reference Range Interpretation Comments Color, UA (test code Yellow = 5778-6) Clarity, UA (test Clear code = 5767-9) Specific [place], UA 1.025 1.001-1.035 (test code = 5811-5) pH, UA (test code = 6.0 5.0-8.0 5803-2) Protein, UA (test 100 mg/dL Negative A code = 79379-6) Glucose, UA (test 70 mg/dL Negative A code = 365) Ketones, UA (test 40 mg/dL Negative A code = 2514-8) Bilirubin, UA (test Negative Negative code = 84973-1) Blood, UA (test code Large Negative A = 90122-8) Nitrite, UA (test Negative Negative code = 5802-4) Leukocytes, UA (test Negative Negative code = 5799-2) Urobilinogen, UA 0.2 mg/dL 0.2-1.0 (test code = 82869-9) RBC, UA (test code = 30 See_Comment [Autom ated 62888-0) message] The system which generated this result [...] Bacteria, UA (test None Seen code = 81106-1) Mucus (test code = Few 8247-9) Hyaline Casts, UA 1 See_Comment [Automate d (test code = 73392-4) messag e] The system which generated this result transmit hernandez reference range : /LPF. The reference range was not used to interpret this result as normal/abnormal . Casts (test code = 3 See_Comment [Automat ed 9842-6) message] The system which generated this result transmit hernandez reference range : /LPF. The reference range was not used to interpret this result as normal/abnormal . Crystals, Urine (test None Seen code = 79359-8) Specimen Source (test code = 2795) IDALIA (test code = IDALIA) Senior Solutions Consultant ID - [auto]Senior Solutions Consultant ID - tech Lab Interpretation Abnormal (test code = 14850-2) [facility]/ REFLEX URINE [id number] 14:42:51 Test Item Value Reference Range Interpretation [...] = 1521) SOURCE(BEAKER) (test code = 2795) Senior Solutions Consultant ID - [auto]Senior Solutions Consultant ID - kmilDSXGNYAKMMCOC7648-05-11 13:45:54 Test Item Value Reference Range Interpretation Comments PROCALCITONIN (BEAKER) (test code 41.89 ng/mL <0.05 HH = 3036) SEPSIS RISK (ng/mL)Low: 0.05-0.50Intermediate: 0.51-2.00High: >=2.01 [id number] 13:10:47 Test Item Value Reference Range Interpretation Comments HAPTOGLOBIN (BEAKER) (test code = 367 mg/dL 14-258 H 366) Senior Solutions Consultant ID - BSOperator ID - BSCOMPREHENSIVE METABOLIC [id number] 12:56:57 Test Item Value Reference Range Interpretation [...] S NOT APPLICABLE FOR DIALYSIS PATIEN TS. Senior Solutions Consultant ID - BSHEPATIC FUNCTION [id number] 12:56:40 Test Item Value Reference Range Interpretation [...] Specimen slightly (test code = 347) hemolyzed Senior Solutions Consultant ID - [id number] 12:56:40 Test Item Value Reference Range Interpretation Comments LIPASE (BEAKER) (test code = 749) 132 U/L 8-78 H Senior Solutions Consultant ID - [id number] 12:56:39 Test Item Value Reference Range Interpretation Comments MAGNESIUM (BEAKER) 1.9 mg/dL 1.6-2.6 Specimen slightly (test code = 627) hemolyzed Senior Solutions Consultant ID - [id number] 12:56:39 Test Item Value Reference Range Interpretation Comments PHOSPHORUS (BEAKER) 2.9 mg/dL 2.3-4.7 Specimen slightly (test code = 604) hemolyzed Senior Solutions Consultant ID - BSVANCOMYCIN LEVEL, [id number] 12:51:35 Test Item Value Reference Range Interpretation Comments VANCOMYCIN TROUGH (BEAKER) (test 14.4 ug/mL 10.0-20.0 code = 522) Senior Solutions Consultant ID - [id number] 12:43:54 Test Item Value Reference Range Interpretation Comments FIBRINOGEN LEVEL (BEAKER) (test 715 mg/dl 225-434 H code = 658) HEMOGLOBIN AND [id number] 12:34:38 Test Item Value Reference Range Interpretation Comments HEMOGLOBIN (BEAKER) (test code = 8.0 GM/DL 13.7-17.5 L 410) HEMATOCRIT (BEAKER) (test code = 26.2 % 40.1-51.0 L 411) Senior Solutions Consultant ID - [id number]-GLUCOSE [id number] 12:12:10 Test Item Value Reference Range Interpretation Comments POC-GLUCOSE METER 152 mg/dL 70-110 H : TESTED A T [facility] 6720 (BEAKER) (test code = [place], 1538) [address]: Senior Solutions Consultant/Techni dakota ID = [id number] for Rubén poe Patrick ANTI-DNA [id number] 11:19:56 Test Item Value Reference Range Interpretation Comments ANTI-DNA TITER (BEAKER) (test code = :80 1553) DOUBLE-STRANDED DNA (DSDNA) [id number] 11:19:49 Test Item Value Reference Range Interpretation Comments ANTI-DNA DS (BEAKER) (test code = Positive Negative 1055) ANTI-DNA [id number] 11:19:10 Test Item Value Reference Range Interpretation Comments ANTI-DNA TITER (BEAKER) (test code = :80 1553) DOUBLE-STRANDED DNA (DSDNA) [id number] 11:19:04 Test Item Value Reference Range Interpretation Comments ANTI-DNA DS (BEAKER) (test code = Positive Negative 1055) LACTATE DEHYDROGENASE (LDH)2021-09-07 10:00:12 Test Item Value Reference Range Interpretation Comments LACTATE DEHYDROGENASE (BEAKER) (test 723 U/L 125-220 H code = 635) Senior Solutions Consultant ID - BSBILIRUBIN, [id number] 10:00:11 Test Item Value Reference Range Interpretation Comments BILIRUBIN DIRECT (BEAKER) (test 0.8 mg/dL 0.1-0.5 H code = 706) Senior Solutions Consultant ID - BSCBC W/PLT COUNT & AUTO [id number] 08:25:03 Test Item Value Reference Range Interpretation [...] 487) LARGE PLT(BEAKER) (test code = Present 6) POLYCHROMATOPHILLIC RBCS(BEAKER) 1+ few (test code = [...] CONCENTRATION Decreased (CELLAVISION)(BEAKER) (test code = 3438) Senior Solutions Consultant ID - [id number] ID - LaniUsmelissa comments: Slide comments:B-TYPE NATRIURETIC FACTOR (BNP)2021-09-07 06:31:12 Test Item Value Reference Range Interpretation Comments B-TYPE NATRIURETIC PEPTIDE (BEAKER) 269 pg/mL 0-100 H (test code = 700) Senior Solutions Consultant ID - BSLACTIC ACID, [id number] 06:10:21 Test Item Value Reference Range Interpretation Comments LACTATE BLOOD VENOUS (2) (BEAKER) 0.76 mmol/L 0.50-2.20 (test code = 2872) Senior Solutions Consultant ID - LUQVWI-[id number] 03:08:41 Test Item Value Reference Range Interpretation Comments POC-Glucose (test code = 153 mg/dL 70-110 H : T ESTED AT [facility] 1855) 6720 [facility], 770 30: Senior Solutions Consultant/Techni dakota ID = [id number] for URCIA, FAMELA Lab Interpretation (test Abnormal code = 72813-4) [facility][id number] 03:08:41 Test Item Value Reference Range Interpretation Comments POC-Hematocrit (test code 21 % 40-50 L : = 1857) Senior Solutions Consultant/Techni dakota ID = [id number] for URCIA, FAMELA Lab Interpretation (test Abnormal code = 68132-5) [facility]-[id number] 03:08:41 Test Item Value Reference Range Interpretation Comments POC-Glucose (test code = 153 mg/dL 70-110 H : T ESTED AT [facility] 1855) 67[address] [facility], 770 30: Senior Solutions Consultant/Techni dakota ID = [id number] for URCIA, FAMELA Lab Interpretation (test Abnormal code = 59177-0) [facility] HospitalBcwkuuGJQB-[id number] 03:08:41 Test Item Value Reference Range Interpretation Comments POC-Hematocrit (test code 21 % 40-50 L : = 1857) Senior Solutions Consultant/Techni dakota ID = [id number] for URCIA, FAMELA Lab Interpretation (test Abnormal code = 63159-5) [facility] HospitalQpxcwhHASQ-[id number] 03:08:41 Test Item Value Reference Range Interpretation Comments POC-HEMATOCRIT 21 % 40-50 L : Senior Solutions Consultant/Te chnician ID = (BEAKER) (test code = 665471 for URCIA, FAMELA 1857) [id number] 03:08:41 Test Item Value Reference Range Interpretation Comments POC-GLUCOSE (GENEVA) 153 mg/dL 70-110 H : TESTE D AT [facility] 6720 (test code = 1855) [facility], [address]: Senior Solutions Consultant/Techni dakota ID = [id number] for URCI A, FAMELA FYS-[id number] 03:08:40 Test Item Value Reference Range Interpretation Comments POC-Potassium (test code 3.8 meq/L 3.6-5.5 : T ESTED AT [facility] = 1540) [address] [place] [address], 770 30: Senior Solutions Consultant/Techni dakota ID = [id number] for URCIA, FAMELA Lab Interpretation (test Normal code = 19501-6) [facility]-[id number] 03:08:40 Test Item Value Reference Range Interpretation Comments POC-Hemoglobin (test code 7.1 g/dL 13.0-16.8 L : TESTED AT [facility] = 1856) [address] [place] [address], 770 30: Senior Solutions Consultant/Techni dakota ID = [id number] for URCIA, FAMELA Lab Interpretation (test Abnormal code = 07318-6) [facility]-Mwqvrurlh4812-14-33 03:08:40 Test Item Value Reference Range Interpretation Comments POC-Potassium (test code 3.8 meq/L 3.6-5.5 : T ESTED AT [facility] = 1540) [address] [place] [address], 770 30: Senior Solutions Consultant/Techni dakota ID = [id number] for URCIA, FAMELA Lab Interpretation (test Normal code = 61918-9) [facility]-[id number] 03:08:40 Test Item Value Reference Range Interpretation Comments POC-Hemoglobin (test code 7.1 g/dL 13.0-16.8 L : TESTED AT [facility] = 1856) [address] [place] [address], 770 30: Senior Solutions Consultant/Techni dakota ID = [id number] for URCIA, FAMELA Lab Interpretation (test Abnormal code = 07561-9) [facility]-[id number] 03:08:40 Test Item Value Reference Range Interpretation Comments POC-POTASSIUM 3.8 meq/L 3.6-5.5 : TESTED AT [facility] 6720 ([facility]) (test code [facility], = 1540) [address]: Senior Solutions Consultant/Techni dakota ID = [id number] for URCI A, FAMELA HNSE-[id number] 03:08:40 Test Item Value Reference Range Interpretation Comments POC-HEMOGLOBIN 7.1 g/dL 13.0-16.8 L : TESTED AT [facility] 6720 ([facility]) (test code = [place] [facility], 1856) [address]: Senior Solutions Consultant/Techni dakota ID = [id number] for URCI A, FAMELA POC-Blood gases, [id number] 03:08:39 Test Item Value Reference Range Interpretation Comments Temp. Celsius-POC (test 97.2 code = 1834) FIO2-POC (test code = 54 1835) pH, Arterial-POC (test 7.429 7.350-7.450 code = 2744-1) PCO2, Arterial-POC 33.3 See_Comment L If pO2 [...] tomated message] code = 1838) The system Cognitive Code generated this result transmit hernandez reference range : 80.0 - 90.0 mm Hg. The reference r colby was not used to interpret this result as normal/abnormal . SO2, Arterial-POC (test 91.0 % 96.0-97.0 L code = 1839) HCO3, Arterilal-POC 22.2 meq/L 21.0-29.0 (test code = 1840) BE, Arterial-POC (test -2.0 meq/L -2.0-3.0 : LIONEL HERNANDEZ AT [facility] code = 1841) 6720 [facility], [address]: Senior Solutions Consultant/Techni dakota ID = [id number] for URCIA, FAMELA Lab Interpretation Abnormal (test code = 02945-2) [facility]-[id number] 03:08:39 Test Item Value Reference Range Interpretation Comments POC-Sodium (test code = 134 meq/L 135-148 L : TE STED AT [facility] 1542) 6720 [facility] [place], 770 30: Senior Solutions Consultant/Techni dakota ID = [id number] for URCIA, FAMELA Lab Interpretation (test Abnormal code = 53373-1) [facility]-Blood gases, [id number] 03:08:39 Test Item Value Reference Range Interpretation [...] tomated message] code = 1838) The system Cognitive Code generated this result transmit hernandez reference range : 80.0 - 90.0 mm Hg. The reference r colby was not used to interpret this result as normal/abnormal . SO2, Arterial-POC (test 91.0 % 96.0-97.0 L code = 1839) HCO3, Arterilal-POC 22.2 meq/L 21.0-29.0 (test code = 1840) BE, Arterial-POC (test -2.0 meq/L -2.0-3.0 : LIONEL HERNANDEZ AT [facility] code = 1841) [address] [place], [address]: Senior Solutions Consultant/Techni dakota ID = [id number] for URCIA, FAMELA Lab Interpretation Abnormal (test code = 46704-0) [facility]-Nryaaj3803-73-04 03:08:39 Test Item Value Reference Range Interpretation Comments POC-Sodium (test code = 134 meq/L 135-148 L : TE STED AT [facility] 1542) [address] [facility], 770 30: Senior Solutions Consultant/Techni dakota ID = [id number] for URCIA, FAMELA Lab Interpretation (test Abnormal code = 44046-5) [facility] Hospital[facility]-BLOOD GASES, [id number] 03:08:39 Test Item Value Reference Range Interpretation [...] EXCESS, -2.0 meq/L -2.0-3.0 : TESTED AT [facility] 6720 ARTERIAL-POC [facility], (BEAKER) (test code [address]: = 1841) Senior Solutions Consultant/Techni dakota ID = [id number] for URCI A, FAMELA [id number] 03:08:39 Test Item Value Reference Range Interpretation Comments POC-SODIUM (BEAKER) 134 meq/L 135-148 L : TESTED AT [facility] 6720 (test code = 1542) [facility], [address]: Senior Solutions Consultant/Techni dakota ID = [id number] for URCI A, FAMELA RAD, CHEST, 1 VIEW, NON [id number] 03:00:00Reason for exam:- >destaurationShould this be performed at the bedside?->Yes [facility] : 2000 Sex: MFINALREPORT RAD, CHEST, 1 VIEW, NON DEPT INDICATION: desaturation COMPARISON: Prior day's exam FINDINGS: Portable frontal view of the chest. IMPRESSION: Support Lines: Stable feeding tube. Lungs and pleura: Unchanged hypoinflated lungs with bibasilar atelectasis and small bilateral pleural effusions. No pneumothorax. Heart and mediastinum: Stable contours. Additional findings: None. Signed: Gokul Encarnacion MDReport Verified Date/Time: 09/07/2021 03:00:20 BASIC METABOLIC [id number] 01:49:40 Test Item Value Reference Range Interpretation [...] S NOT APPLICABLE FOR DIALYSIS PATIEN TS. Senior Solutions Consultant ID - [id number] 01:38:31 Test Item Value Reference Range Interpretation Comments PHOSPHORUS (BEAKER) (test code = 3.1 mg/dL 2.3-4.7 604) Senior Solutions Consultant ID - [id number] 01:38:30 Test Item Value Reference Range Interpretation Comments MAGNESIUM (BEAKER) (test code = 1.9 mg/dL 1.6-2.6 627) Senior Solutions Consultant ID - BSPOCT-GLUCOSE [id number] 00:10:21 Test Item Value Reference Range Interpretation Comments POC-GLUCOSE METER 128 mg/dL 70-110 H : TESTED A T [facility] 6720 (BEAKER) (test code = [facility], 1538) [address]: Senior Solutions Consultant/Techni dakota ID = [id number] for ABBIE PIERRE POCT-GLUCOSE [id number] 15:58:02 Test Item Value Reference Range Interpretation Comments POC-GLUCOSE METER 142 mg/dL 70-110 H : TESTED A T [facility] 6720 (GENEVA) (test code = [facility], 1538) [address]: Senior Solutions Consultant/Techni dakota ID = [id number] for Laura Ch POCT-GLUCOSE [id number] 13:04:07 Test Item Value Reference Range Interpretation Comments POC-GLUCOSE METER 141 mg/dL 70-110 H : TESTED A T [facility] 6720 (BEAKER) (test code = [facility], 1538) [address]: Senior Solutions Consultant/Techni dakota ID = [id number] for Laura Ch TSH/FREE T4 IF [id number] 11:33:39 Test Item Value Reference Range Interpretation Comments THYROID STIMULATING HORMONE 4.429 uIU/mL 0.350-4.940 (BEAKER) (test code = 772) Senior Solutions Consultant ID - PIAYASARS-COV2/RT-PCR ([facility])2021-09-06 10:50:02 Test Item Value Reference Range Interpretation Comments SARS-COV2/RT-PCR (test Negative Not Detected, Negative, code = 9247166) See external report for linked test SARS-COV-2 PERFORMING LAB [facility] SHAUNA (test code = 2637423) Negative result for this test determines that [...] of the Act.Fact Sheet for Healthcare Prov iders:https://www.[employer]/sites/default/files/product/documents/Fact_Sheet_HC _Dilzyzzen_Icqe_MXIK-MiX-2.pdfFact Sheet for Healthcare Patients:https://www.Obvious.[employer]K Entertainment/sites/default/files/product/docume [id number].pdfPerforming Laboratory:[facility], [place] [address]GYTWQPH D, 25-HYDROXY 2021-09-06 07:57:12 Test Item Value Reference Range Interpretation Comments VITAMIN D 25-OH (BEAKER) (test 15.4 ng/mL 6.6-49.9 code = 2764) Effective 02/27/2017: Reference Range ChangeNew: 6.6-49.9 ng/mL Previous: 13.0- 47.8 ng/mLRecommendedVitamin D Target Range: 30.0-40.0 ng/mLOperator ID - BS POCT-GLUCOSE [id number] 07:40:30 Test Item Value Reference Range Interpretation Comments POC-GLUCOSE METER 157 mg/dL 70-110 H : TESTED A T [facility] 6720 (BEAKER) (test code = DONNA [place], 1538) [address]: Senior Solutions Consultant/Techni dakota ID = [id number] for Laura Ch COMPLEMENT COMPONENT [id number] 07:37:31 Test Item Value Reference Range Interpretation Comments C3 COMPLEMENT (BEAKER) (test code = 25 mg/dL 82-193 L 393) Senior Solutions Consultant ID - BSCOMPLEMENT COMPONENT [id number] 07:37:30 Test Item Value Reference Range Interpretation Comments C4 COMPLEMENT (BEAKER) (test code = 4 mg/dL 15-57 L 394) Senior Solutions Consultant ID - BSPROTEIN, RANDOM [id number] 07:28:02 Test Item Value Reference Range Interpretation Comments PROTEIN, URINE (BEAKER) (test code 411 mg/dL 0-14 H = 1569) Senior Solutions Consultant ID - BS(CELLAVISION MANUAL DIFF)2021-09-06 07:15:58 Test [...] CONCENTRATION Decreased (CELLAVISION)(BEAKER) (test code = 3438) Senior Solutions Consultant ID - [id number] ID - joanna Fuentes comments: Slide comments:CBC W/PLT COUNT & AUTO [id number] 07:15:57 Test Item Value Reference Range Interpretation [...] (BEAKER) (test code = 413) CREATININE, RANDOM [id number] 06:26:45 Test Item Value Reference Range Interpretation Comments CREATININE URINE (BEAKER) (test 200.4 mg/dL code = 375) Reference Range: No NormalsOperator ID - BSURINALYSIS W/ [id number] 06:06:22 Test Item Value Reference Range Interpretation [...] code = 1584) SOURCE(BEAKER) (test code = 2795) Senior Solutions Consultant ID - [auto]Senior Solutions Consultant ID - techOperator ID - techCOMPREHENSIVE METABOLIC [id number] 02:54:37 Test Item Value Reference Range Interpretation [...] S NOT APPLICABLE FOR DIALYSIS PATIEN TS. Senior Solutions Consultant ID - BSLACTIC ACID, [id number] 02:42:48 Test Item Value Reference Range Interpretation Comments LACTATE BLOOD VENOUS (2) (BEAKER) 1.38 mmol/L 0.50-2.20 (test code = 6072) Senior Solutions Consultant ID - [id number] 02:36:26 Test Item Value Reference Range Interpretation Comments MAGNESIUM (BEAKER) (test code = 1.6 mg/dL 1.6-2.6 627) Senior Solutions Consultant ID - [id number] 02:36:26 Test Item Value Reference Range Interpretation Comments PHOSPHORUS (BEAKER) (test code = 2.4 mg/dL 2.3-4.7 604) Senior Solutions Consultant ID - BSRAD, CHEST, 1 VIEW, NON [id number] 02:26:00Reason for exam:->sobCH[facility] : 2000 Sex: MFINAL [...] Vernell Ndiaye Verified Date/Time: 09/06/2021 02:26:55 POCT-GLUCOSE [id number] 01:16:19 Test Item Value Reference Range Interpretation Comments POC-GLUCOSE METER 164 mg/dL 70-110 H : TESTED A T [facility] 6720 (GENEVA) (test code = [place], 1538) [address]: Senior Solutions Consultant/Techni dakota ID = [id number] for WENDY PHILLIPS BASIC METABOLIC [id number] 19:41:58 Test Item Value Reference Range Interpretation [...] S NOT APPLICABLE FOR DIALYSIS PATIEN TS. Senior Solutions Consultant ID - [id number] 19:38:29 Test Item Value Reference Range Interpretation Comments MAGNESIUM (BEAKER) (test code = 1.7 mg/dL 1.6-2.6 627) Senior Solutions Consultant ID - [id number] 19:38:29 Test Item Value Reference Range Interpretation Comments PHOSPHORUS (BEAKER) (test code = 2.0 mg/dL 2.3-4.7 L 604) Senior Solutions Consultant ID - BSPOCT-GLUCOSE [id number] 19:12:09 Test Item Value Reference Range Interpretation Comments POC-GLUCOSE METER 184 mg/dL 70-110 H : TESTED A T [facility] 6720 (BEAKER) (test code = DONNA [place], 1538) [address]: Senior Solutions Consultant/Techni dakota ID = [id number] for CHANTE GLI [id number] 17:52:47 Test Item Value Reference Range Interpretation Comments FERRITIN (BEAKER) (test code = 4212.17 ng/mL 5.00-275.00 H 361) Senior Solutions Consultant ID - BSOperator ID - BSCT, [id number] 12:57:00Unlisted Reason for Exam - Click Yes and Enter Reason Below->YesUnlisted Reason for Exam->pancreatitis folllow-upIs this for enterography?->NoWill this procedure require oral contrast?->No [facility] : 2000 Sex: MFINAL [...] changes of the lefthip. Signed: Yash Lux Verified Date/Time: 09/05/2021 12:57:43 [facility] [place] [address] POCT-GLUCOSE [id number] 12:23:38 Test Item Value Reference Range Interpretation Comments POC-GLUCOSE METER 181 mg/dL 70-110 H : TESTED A T [facility] 6720 (BEAKER) (test code = [facility], 1538) [address]: Senior Solutions Consultant/Techni dakota ID = [id number] for CHANTE GIL POCT-GLUCOSE [id number] 06:55:24 Test Item Value Reference Range Interpretation Comments POC-GLUCOSE METER 197 mg/dL 70-110 H : TESTED A T [facility] 6720 (BEAKER) (test code = [facility], 1538) [address]: Senior Solutions Consultant/Techni dakota ID = [id number] for ON UOHA, ALLAN COMPREHENSIVE METABOLIC [id number] 06:16:59 Test Item Value Reference Range Interpretation [...] S NOT APPLICABLE FOR DIALYSIS PATIEN TS. Senior Solutions Consultant ID - SHREE WCALCIUM, [id number] 05:57:49 Test Item Value Reference Range Interpretation [...] WBC 0-0 (BEAKER) (test code = 413) [id number] 01:18:24 Test Item Value Reference Range Interpretation Comments PHOSPHORUS (BEAKER) (test code = 1.2 mg/dL 2.3-4.7 LL 604) Senior Solutions Consultant ID - BSBASIC METABOLIC [id number] 01:17:10 Test Item Value Reference Range Interpretation [...] S NOT APPLICABLE FOR DIALYSIS PATIEN TS. Senior Solutions Consultant ID - [id number] 01:10:55 Test Item Value Reference Range Interpretation Comments MAGNESIUM (BEAKER) (test code = 2.3 mg/dL 1.6-2.6 627) Senior Solutions Consultant ID - BSPOCT-GLUCOSE [id number] 00:50:48 Test Item Value Reference Range Interpretation Comments POC-GLUCOSE METER 194 mg/dL 70-110 H : TESTED Daphne Miller [facility] 6720 (GENEVA) (test code = DON[place], 1538) [address]: Senior Solutions Consultant/Techni dakota ID = [id number] for ON UOHA, ALLAN CT, CHEST WITH IV CONTRAST- PE TEST [id number] 21:21:00Unlisted Reason for Exam - Click Yes and Enter Reason Below->No [facility] : 2000 Sex: MFINAL REPORT Comparison: MR [...] Vernell Ndiaye Verified Date/Time: 09/04/2021 21:21:16 POCT-GLUCOSE [id number] 18:23:42 Test Item Value Reference Range Interpretation Comments POC-GLUCOSE METER 248 mg/dL 70-110 H : TESTED A T [facility] 6720 (BEAKER) (test code = DON[place], 1538) [address]: Senior Solutions Consultant/Techni dakota ID = [id number] for Bree Roman [id number] 14:56:22 Test Item Value Reference Range Interpretation Comments CALCIUM (BEAKER) (test code = 697) 5.8 mg/dL 8.4-10.2 LL Senior Solutions Consultant ID - ADMINPOCT-GLUCOSE [id number] 13:17:18 Test Item Value Reference Range Interpretation Comments POC-GLUCOSE METER 217 mg/dL 70-110 H : TESTED A T [facility] 6720 (BEAKER) (test code = [place], 1538) [address]: Senior Solutions Consultant/Techni dakota ID = [id number] for Liana Flores CBC W/PLT COUNT & AUTO [id number] 07:22:59 Test Item Value Reference Range Interpretation [...] PERCENT (BEAKER) (test code = 2801) POCT-GLUCOSE [id number] 06:16:20 Test Item Value Reference Range Interpretation Comments POC-GLUCOSE METER 261 mg/dL 70-110 H : TESTED A T [facility] 6720 (BEAKER) (test code = DON[place], 1538) [address]: Senior Solutions Consultant/Techni dakota ID = [id number] for KENDALL JOYA COMPREHENSIVE METABOLIC [id number] 05:49:22 Test Item Value Reference Range Interpretation [...] S NOT APPLICABLE FOR DIALYSIS PATIEN TS. Senior Solutions Consultant ID - [id number] 05:33:14 Test Item Value Reference Range Interpretation Comments MAGNESIUM (BEAKER) (test code = 1.8 mg/dL 1.6-2.6 627) Senior Solutions Consultant ID - ADMINURINALYSIS W/ REFLEX URINE [id number] 01:34:44 Test Item Value Reference Range Interpretation [...] 1585) Rare SOURCE(BEAKER) (test code = 2795) Senior Solutions Consultant ID - [auto]Senior Solutions Consultant ID - techPOCT-GLUCOSE [id number] 00:34:17 Test Item Value Reference Range Interpretation Comments POC-GLUCOSE METER 261 mg/dL 70-110 H : TESTED A T [facility] 6720 (BEAKER) (test code = DONNA [place] [facility], 1538) [address]: Senior Solutions Consultant/Techni dakota ID = [id number] for KENDALL JOYA [id number] 18:57:34 Test Item Value Reference Range Interpretation Comments MAGNESIUM (BEAKER) (test code = 1.3 mg/dL 1.6-2.6 L 627) Senior Solutions Consultant ID - ADMINPOCT-GLUCOSE [id number] 18:04:02 Test Item Value Reference Range Interpretation Comments POC-GLUCOSE METER 307 mg/dL 70-110 H : TESTED A T [facility] 6720 (BEAKER) (test code = [facility], 1538) [address]: Senior Solutions Consultant/Techni dakota ID = [id number] for Liana Flores RAD, ABDOMEN/KUB, 1 VIEW [id number] 18:01:00Reason for exam:->Enteric tube placement verification [facility] : 2000 Sex: MFINAL REPORT RAD, ABDOMEN/KUB, [...] MDReport Verified Date/Time: 09/03/2021 18:01:34 COMPREHENSIVE METABOLIC [id number] 17:50:55 Test Item Value Reference Range Interpretation [...] S NOT APPLICABLE FOR DIALYSIS PATIEN TS. Senior Solutions Consultant ID - [id number] ID - [id number] ID - ADMINCBC W/PLT COUNT & AUTO [id number] 17:43:10 Test Item Value Reference Range Interpretation [...] code = 2801) RAD, ABDOMEN/KUB, 1 VIEW [id number] 17:14:00Reason for exam:->confirm [facility] : 2000 Sex: [...] 09/03/2021 17:14:35 , CHEST, 1 VIEW, NON [id number] 16:50:00Reason for exam:->ngt placementShould this be performed at the bedside?->Yes [facility] : 2000 Sex: MFINAL REPORT INDICATION: ngt placement COMPARISON: None TECHNIQUE: Single frontal view of the chest. FINDINGS: Lungs and pleura: Trace right effusion and basilar atelectasisHeart and mediastinum: Normal heart size. Unremarkable mediastinal contours.Osseous structures: No acute abnormalit y.Other: Feeding tube descends below the diaphragm. Signed: Anne Marie Correa MDReport Verified Date/Time: 09/03/2021 16:50:54 [id number] 10:58:42 Test Item Value Reference Range Interpretation Comments PHOSPHORUS (BEAKER) 1.6 mg/dL 2.3-4.7 L Specimen slightly (test code = 604) hemolyzed Senior Solutions Consultant ID - BISI GCOMPREHENSIVE METABOLIC [id number] 06:03:24 Test Item Value Reference Range Interpretation [...] S NOT APPLICABLE FOR DIALYSIS PATIEN TS. Senior Solutions Consultant ID - BISI GPOCT-GLUCOSE [id number] 22:25:14 Test Item Value Reference Range Interpretation Comments POC-GLUCOSE METER 312 mg/dL 70-110 H : TESTED A T [facility] 6720 ([facility]) (test code = DONNA [place] [facility], 1538) [address]: Senior Solutions Consultant/Techni dakota ID = [id number] for FABRIZIO JOYCE POCT-GLUCOSE [id number] 19:00:17 Test Item Value Reference Range Interpretation Comments POC-GLUCOSE METER 339 mg/dL 70-110 H : Notified RN/MD: ([facility]) (test code = TESTED AT [facility] 6720 1538) [facility], [address]: Senior Solutions Consultant/Techni dakota ID = [id number] for Rudy mccord (contract)Emeka yana PROTEIN, RANDOM [id number] 08:28:13 Test Item Value Reference Range Interpretation Comments PROTEIN, URINE (BEAKER) (test code 243 mg/dL 0-14 H = 1569) Senior Solutions Consultant ID - BSOperator ID - BSCREATININE, RANDOM [id number] 07:21:31 Test Item Value Reference Range Interpretation Comments CREATININE URINE (BEAKER) (test 122.9 mg/dL code = 375) Reference Range: No NormalsOperator ID - BSRAD, CHEST, 1 VIEW, NON DEPT 2021-09-02 01:55:00Reason for exam:->chest painShould this be performed at the bedside?->Yes [facility] : 2000 Sex: MFINAL REPORT History: chest pain. Comparison: None. Findings: A single view of the chest is submitted. The cardiomediastinal contours are unremarkable. There is no focal consolidation, pneumothorax, large pleural effusion or evidence of overt pulmonary edema. There is no acute bony abnormality. Impression: No acute abnormality. Signed: Miles Alicia Verified Date/Time: 09/02/2021 01:55:59 POCT-GLUCOSE [id number] 23:28:42 Test Item Value Reference Range Interpretation Comments POC-GLUCOSE METER 277 mg/dL 70-110 H : TESTED A T [facility] 6720 ([employer]) (test code = DONNA [place] [facility], 1538) [address]: Senior Solutions Consultant/Techni dakota ID = [id number] for RODRIGUES PAULINA POCT-GLUCOSE [id number] 18:19:51 Test Item Value Reference Range Interpretation Comments POC-GLUCOSE METER 263 mg/dL 70-110 H : TESTED A T [facility] 6720 (Work '[employer] Gear[employer]ER) (test code = DONNA [place] [facility], 1538) [address]: Senior Solutions Consultant/Techni dakota ID = [id number] for Rubén jordanmarzenaLaura solorzano HIGH SENSITIVITY TROPONIN [id number] 17:04:34 Test Item Value Reference Range Interpretation Comments HIGH SENSITIVITY < pg/ml See_Comment [Automated message] TROPONIN I (test code = The system which [id number]) generated this result transmitted ref erence range: <=35. Th e reference range was not used to interpr et this result as normal/abnormal . Senior Solutions Consultant ID - BSThe SUSTAINMENT LOGISTICS ANALYST STAT High Sensitivity Troponin-I results should be used in conjunctionwith other diagnostic information such as ECG, clinical observations and information, and patient symptoms to aid in the diagnosis of MN.(CELLAVISION MANUAL DIFF)2021-09-01 10:37:19 Test Item Value Reference [...] CONCENTRATION Decreased (CELLAVISION)(BEAKER) (test code = 3438) Senior Solutions Consultant ID - [id number] ID - joanna Fuentes comments: Slide comments:CBC W/PLT COUNT & AUTO [id number] 10:37:18 Test Item Value Reference Range Interpretation [...] (BEAKER) (test code = 413) COMPREHENSIVE METABOLIC [id number] 07:28:31 Test Item Value Reference Range Interpretation [...] S NOT APPLICABLE FOR DIALYSIS PATIEN TS. Senior Solutions Consultant ID - BSIMMUNOGLOBULIN A (IGA)2021-09-01 07:27:15 Test Item Value Reference Range Interpretation Comments IMMUNOGLOBULIN A (IGA) (BEAKER) 235 mg/dL 63-484 (test code = 639) Senior Solutions Consultant ID - BSPT/[id number] 07:11:49 Test Item Value Reference Range Interpretation [...] 2.5-3.5 for patients with mechanical heart valves.PROTHROMBIN TIME/[id number] 07:11:14 Test Item Value Reference Range Interpretation Comments PROTIME (BEAKER) 13.5 seconds 11.9-14.2 (test code = 759) INR (BEAKER) (test 1.04 See_Comment [Automat ed message] code = 370) The system [employer] Code generated this result transmitted ref erence range: <=5.90. The reference range was not used to int erpret this result as normal/abnormal . RECOMMENDED COUMADIN/WARFARIN INR THERAPY RANGESSTANDARD DOSE: 2.0 - 3.0 Includes: PROPHYLAXIS for venous thrombosis, systemic embolization; TREATMENT for venous thrombosis and/or pulmonary embolus.HIGH RISK: Target INR is 2.5-3.5 for patients with mechanical heart valves.POCT-GLUCOSE [id number] 22:01:13 Test Item Value Reference Range Interpretation Comments POC-GLUCOSE METER 219 mg/dL 70-110 H : TESTED A T [facility] 6720 (BEAKER) (test code = [facility], 1538) [address]: Senior Solutions Consultant/Techni dakota ID = [id number] for FABRIZIO JOYCE POCT-GLUCOSE [id number] 17:24:51 Test Item Value Reference Range Interpretation Comments POC-GLUCOSE METER 177 mg/dL 70-110 H : TESTED A T [facility] 6720 (BEAKER) (test code = [facility], 1538) [address]: Senior Solutions Consultant/Techni dakota ID = [id number] for Laura Ch [id number] 14:29:25 Test Item Value Reference Range Interpretation Comments RPR SCREEN (BEAKER) (test code = Nonreactive Nonreactive 420) RHEUMATOID FACTOR [id number] 14:27:52 Test Item Value Reference Range Interpretation Comments RHEUMATOID FACTOR TITER (BEAKER) (test :8 Negative code = 2285) RHEUMATOID FACTOR AB, REFLEX TO [id number] 14:26:49 Test Item Value Reference Range Interpretation Comments RHEUMATOID FACTOR (BEAKER) (test Positive Negative code = 573) POCT-GLUCOSE [id number] 13:43:32 Test Item Value Reference Range Interpretation Comments POC-GLUCOSE METER 163 mg/dL 70-110 H : TESTED A T [facility] 6720 ([facility]) (test code = [facility], 1538) [address]: Senior Solutions Consultant/Techni dakota ID = [id number] for Laura Ch RETICULOCYTE [id number] 09:04:11 Test Item Value Reference Range Interpretation Comments RETICULOCYTE COUNT PCT ([facility]) (test 0.4 % 0.5-1.8 L code = 575) Senior Solutions Consultant ID - [id number]-GLUCOSE [id number] 08:53:33 Test Item Value Reference Range Interpretation Comments POC-GLUCOSE METER 117 mg/dL 70-110 H : TESTED A T [facility] 6720 ([facility]) (test code = [facility], 1538) [address]: Senior Solutions Consultant/Techni dakota ID = [id number] for José Miguel Elliott [id number] 08:02:13 Test Item Value Reference Range Interpretation Comments FERRITIN (BEAKER) (test code = 55151.20 ng/mL 5.00-275.00 H 361) Senior Solutions Consultant ID - ADMINOperator ID - ADMINCOMPLEMENT COMPONENT [id number] 06:48:01 Test Item Value Reference Range Interpretation Comments C4 COMPLEMENT (BEAKER) (test code = < mg/dL 15-57 L 394) Senior Solutions Consultant ID - BSHIV-1 ANTIGEN WITH HIV-1/2 [id number] 06:38:19 Test Item Value Reference Range Interpretation Comments HIV-1 ANTIGEN WITH HIV 1\\T\\2 Nonreactive Nonreactive ANTIBODY (2) ([facility]) (test code = 2586) Senior Solutions Consultant ID - BSCOMPLEMENT COMPONENT [id number] 06:32:35 Test Item Value Reference Range Interpretation Comments C3 COMPLEMENT (BEAKER) (test code = 13 mg/dL 82-193 L 393) Senior Solutions Consultant ID - BSCOMPREHENSIVE METABOLIC [id number] 06:30:18 Test Item Value Reference Range Interpretation [...] S NOT APPLICABLE FOR DIALYSIS PATIEN TS. Senior Solutions Consultant ID - [id number] 06:30:18 Test Item Value Reference Range Interpretation Comments MAGNESIUM (BEAKER) (test code = 1.5 mg/dL 1.6-2.6 L 627) Senior Solutions Consultant ID - BSPT/[id number] 06:13:21 Test Item Value Reference Range Interpretation [...] 2.5-3.5 for patients with mechanical heart valves.PROTHROMBIN TIME/[id number] 06:12:36 Test Item Value Reference Range Interpretation Comments PROTIME (BEAKER) 13.8 seconds 11.9-14.2 (test code = 759) INR (BEAKER) (test 1.08 See_Comment [Automat ed message] code = 370) The system [employer] h generated this result transmitted ref erence range: [...] WBC 0-0 (test code = 413) BLOOD [id number] 05:00:52 Test Item Value Reference Range Interpretation Comments CULTURE (BEAKER) (test No growth in 5 days code = 1095) BLOOD [id number] 03:00:57 Test Item Value Reference Range Interpretation Comments CULTURE (BEAKER) (test No growth in 5 days code = 1095) The specimen volume collected for this blood culture was below the optimum (10 mL per bottle or 20 mL total). Use of lower volumes may adversely affect recovery and/or detection times of some organisms.POCT-GLUCOSE [id number] 21:20:13 Test Item Value Reference Range Interpretation Comments POC-GLUCOSE METER 132 mg/dL 70-110 H : TESTED A T [facility] 6720 (BEAKER) (test code = [facility], 1538) [address]: Senior Solutions Consultant/Techni dakota ID = [id number] for AXEL COLUNGA POCT-GLUCOSE [id number] 17:39:12 Test Item Value Reference Range Interpretation Comments POC-GLUCOSE METER 137 mg/dL 70-110 H : TESTED A T [facility] 6720 (BEAKER) (test code = [facility], 1538) [address]: Senior Solutions Consultant/Techni dakota ID = [id number] for Nury Link PERIPHERAL BLOOD SMEAR - PATHOLOGIST [id number] 16:27:42 Test Item Value Reference Range Interpretation Comments PERIPHERAL SMR REVIEW Microcytic hypochromic (BEAKER) (test code = anemia with mild 2640) anisopoikilocytosis. Leukopenia with neutropenia and left shifted granulocytic elements. Rare atypical lymphocytes. Decreased platelets; no significant platelet clumping/satellitism identified. [id number] Brea Morales (BEAKER) (test code = Xavier Gallegos 2182) POCT-GLUCOSE [id number] 12:50:21 Test Item Value Reference Range Interpretation Comments POC-GLUCOSE METER 148 mg/dL 70-110 H : TESTED A T [facility] 6720 (BEAKER) (test code = [place], 1538) [address]: Senior Solutions Consultant/Techni dakota ID = [id number] for Nury Link MISCELLANEOUS LAB [id number] 12:30:57 Test Item Value Reference Range Interpretation Comments SCAN RESULT (test code = see scanned results [id number]) see scanned [id number] 11:53:39 Test Item Value Reference Range Interpretation Comments LIPASE (BEAKER) (test code = 749) 969 U/L 8-78 H Senior Solutions Consultant ID - BSANA TITER AND [id number] 10:59:38 Test Item Value Reference Range Interpretation Comments SHANKAR TITER (BEAKER) (test code = :640 1541) SHANKAR PATTERN (BEAKER) (test code = Homogeneous 1781) ANTI-NUCLEAR ANTIBODY (SHANKAR)2021-08-30 10:59:32 Test Item Value Reference Range Interpretation Comments ANTI-NUCLEAR ANTIBODY (SHANKAR) (BEAKER) Positive Negative A (test code = [...] 1+ few (test code = 768) POCT-GLUCOSE [id number] 08:23:03 Test Item Value Reference Range Interpretation Comments POC-GLUCOSE METER 97 mg/dL 70-110 : [facility] (BEAKER) (test code = [place], 1538) [address]: Senior Solutions Consultant/Techni dakoat ID = [id number] for Nury Uriostegui [id number] 04:36:10 Test Item Value Reference Range Interpretation Comments MAGNESIUM (BEAKER) (test code = 1.5 mg/dL 1.6-2.6 L 627) Senior Solutions Consultant ID - BSC-REACTIVE [id number] 04:36:10 Test Item Value Reference Range Interpretation Comments C-REACTIVE PROTEIN (BEAKER) (test 0.77 mg/dL 0.00-0.50 H code = 676) Senior Solutions Consultant ID - BSCOMPREHENSIVE METABOLIC [id number] 04:36:09 Test Item Value Reference Range Interpretation [...] S NOT APPLICABLE FOR DIALYSIS PATIEN TS. Senior Solutions Consultant ID - BSPT/[id number] 04:12:17 Test Item Value Reference Range Interpretation [...] 2.5-3.5 for patients with mechanical heart valves.PROTHROMBIN TIME/[id number] 04:11:15 Test Item Value Reference Range Interpretation Comments PROTIME (BEAKER) 13.8 seconds 11.9-14.2 (test code = 759) INR (BEAKER) (test 1.08 See_Comment [Automat ed message] code = 370) The system [employer] h generated this result transmitted ref erence range: [...] WBC 0-0 (test code = 413) POCT-GLUCOSE [id number] 21:48:31 Test Item Value Reference Range Interpretation Comments POC-GLUCOSE METER 136 mg/dL 70-110 H : [facility] (BEAKER) (test code = [place], 1538) [address]: Senior Solutions Consultant/Techni dakota ID = [id number] for AXEL COLUNGA SARS-COV2/RT-PCR ([facility])2021-08-29 20:38:24 Test Item Value Reference Range Interpretation Comments SARS-COV2/RT-PCR (test code = Negative Negative [id number]) Negative result for this test determines that [...] 564(g) of the Act.Testing was performed using [employer] SARS-CoV-2 assay.Fact Sheet for Healthcare Providers:https://www.TGR [email or web address] SARS-CoV-2 HCP Fact Sheet [id number].pdfFact Sheet for Healthcare Patients:[email or web address] SARS-CoV-2 Patient Fact Sheet EN [id number].pdfPOCT-GLUCOSE [id number] 17:55:13 Test Item Value Reference Range Interpretation Comments POC-GLUCOSE METER 109 mg/dL 70-110 : TESTED A T [facility] 6720 (BEAKER) (test code = [facility] [place] [facility], 1538) [address]: Senior Solutions Consultant/Techni dakota ID = [id number] for Toy Lopez [id number] 14:07:15 Test Item Value Reference Range Interpretation Comments LIPASE (BEAKER) (test code = 749) > U/L 8-78 H Senior Solutions Consultant ID Cherelle AVILEZ [id number] 14:02:51 Test Item Value Reference Range Interpretation Comments FIBRINOGEN LEVEL (BEAKER) (test 189 mg/dl 225-434 L code = 658) [id number] 13:33:46 Test Item Value Reference Range Interpretation Comments PHOSPHORUS (BEAKER) 2.1 mg/dL 2.3-4.7 L Specimen slightly (test code = 604) hemolyzed Senior Solutions Consultant ID Cherelle AVILEZ WPOCT-GLUCOSE [id number] 11:56:19 Test Item Value Reference Range Interpretation Comments POC-GLUCOSE METER 109 mg/dL 70-110 : TESTED A T [facility] 6720 (BEAKER) (test code = [facility] [place] [facility], 1538) [address]: Senior Solutions Consultant/Techni dakota ID = [id number] for Toy Lopez [id number] 10:37:25 Test Item Value Reference Range Interpretation Comments MAGNESIUM (BEAKER) 1.4 mg/dL 1.6-2.6 L Specimen slightly (test code = 627) hemolyzed Senior Solutions Consultant ID - BSCOMPREHENSIVE METABOLIC [id number] 10:37:25 Test Item Value Reference Range Interpretation [...] S NOT APPLICABLE FOR DIALYSIS PATIEN TS. Senior Solutions Consultant ID - BSPOCT-GLUCOSE [id number] 08:55:18 Test Item Value Reference Range Interpretation Comments POC-GLUCOSE METER 101 mg/dL 70-110 : TESTED A T [facility] 6720 (BEAKER) (test code = [place], 1538) [address]: Senior Solutions Consultant/Techni dakota ID = [id number] for Toy Lopez PROTHROMBIN [id number] 05:16:55 Test Item Value Reference Range Interpretation Comments PROTIME (BEAKER) 16.3 seconds 11.9-14.2 H (test code = 759) INR (BEAKER) (test 1.33 See_Comment [Automat ed message] code = 370) The system Cognitive Code generated this result transmitted ref erence range: [...] WBC 0-0 (test code = 413) POCT-GLUCOSE [id number] 04:41:33 Test Item Value Reference Range Interpretation Comments POC-GLUCOSE METER 122 mg/dL 70-110 H : TESTED A T [facility] 6720 (BEAKER) (test code = [place], 1538) [address]: Senior Solutions Consultant/Techni dakota ID = [id number] for Rachele Singh HEPATITIS B SURFACE [id number] 19:07:46 Test Item Value Reference Range Interpretation Comments HEPATITIS B SURFACE ANTIGEN (2) Nonreactive Nonreactive (BEAKER) (test code = 2585) Specimen is considered negative for HBsAg.HEPATITIS C [id number] 18:37:24 Test Item Value Reference Range Interpretation Comments HEPATITIS C ANTIBODY (BEAKER) Nonreactive Nonreactive (test code = 367) Senior Solutions Consultant ID - BSHEPATITIS A ANTIBODY, [id number] 18:29:47 Test Item Value Reference Range Interpretation Comments HEPATITIS A IGG ANTIBODY (BEAKER) Reactive Nonreactive A (test code = 2797) Senior Solutions Consultant ID - BSHEPATITIS B SURFACE [id number] 18:27:24 Test Item Value Reference Range Interpretation Comments HEPATITIS B SURFACE ANTIBODY 328.2 mIU/mL <8.0 H (BEAKER) (test code = 647) Senior Solutions Consultant ID - BSHEPATITIS B CORE ANTIBODY, [id number] 18:27:24 Test Item Value Reference Range Interpretation Comments HEPATITIS B CORE TOTAL ANTIBODY Nonreactive Nonreactive (BEAKER) (test code = 497) Senior Solutions Consultant ID - BSRapid drug screen, [id number] 18:17:41 Test Item Value Reference Range Interpretation Comments Barbiturate Screen Negative Negative (test code = 35735-7) Benzodiazepine Screen Negative Negative (test code = 22074-3) Cocaine (Metab.) Negative Negative Screen (test code = 3397-7) Methadone Screen (test Negative Negative code = 51900-9) Opiate Screen (test Negative Negative code = 04301-4) Cannabinoid Screen Negative Negative (test code = 40086-7) Amph/Methamph Screen Negative Negative (test code = 00594-9) Phencyclidine Screen Negative Negative (test code = 54601-9) pH, UA (test code = 7.5 5.0-8.0 5803-2) IDALIA (test code = IDALIA) DRUG CUTOFF CONC.Cocaine 300 ng/mL Cannabinoid 50 ng/mLBenzodiazepine 200 ng/mLBarbiturate 200 ng/mLPhencyclidine 25 ng/mLOpiate 300 ng/mLMethadone 300 ng/mLAmphetamine/ 1000 ng/mL Methamphetamine This assay provides an unconfirmed qualitative test result for the clinical management of patients in emergency situations. Chain of custody not maintained. Some rdep-dtj-egwdkap medications, as well as adulterants, may cause inaccurate results. Clinical correlation should be applied. A more comprehensive drug screen or confirmation of a detected drug may be performed upon request.Senior Solutions Consultant ID - BS Lab Interpretation Normal (test code = 70388-2) [facility], [id number] 18:17:41 Test Item Value Reference Range Interpretation Comments Barbiturate Screen Negative Negative (test code = 49636-5) Benzodiazepine Screen Negative Negative (test code = 11068-4) Cocaine (Metab.) Negative Negative Screen (test code = 3397-7) Methadone Screen (test Negative Negative code = 09317-6) Opiate Screen (test Negative Negative code = 92909-9) Cannabinoid Screen Negative Negative (test code = 60620-0) Amph/Methamph Screen Negative Negative (test code = 99761-9) Phencyclidine Screen Negative Negative (test code = 37068-6) pH, UA (test code = 7.5 5.0-8.0 5803-2) IDALIA (test code = IDALIA) DRUG CUTOFF CONC.Cocaine 300 ng/mL Cannabinoid 50 ng/mLBenzodiazepine 200 ng/mLBarbiturate 200 ng/mLPhencyclidine 25 ng/mLOpiate 300 ng/mLMethadone 300 ng/mLAmphetamine/ 1000 ng/mL Methamphetamine This assay provides an unconfirmed qualitative test result for the clinical management of patients in emergency situations. Chain of custody not maintained. Some elop-oot-rlcucem medications, as well as adulterants, may cause inaccurate results. Clinical correlation should be applied. A more comprehensive drug screen or confirmation of a detected drug may be performed upon request.Senior Solutions Consultant ID - BS Lab Interpretation Normal (test code = 34783-2) [facility], [id number] 18:17:41 Test Item Value Reference Range Interpretation [...] situations. Chain of custody not maintained. Some cfcc-olo-nbkguek medications, as well as adulterants, may cause inaccurate results. Clinical correlation should be applied. A more comprehensive drug screen or confirmation of a detected drug may be performed upon request.Senior Solutions Consultant ID - BSIMMUNOGLOBULIN G (IGG)2021-08-28 18:13:19 Test Item Value Reference Range Interpretation Comments IMMUNOGLOBULIN G (IGG) 1400 mg/dL See_Comment [Aut omated message] (BEAKER) (test code = The sy stem which 427) generated this result transmit hernandez reference range : 540-1,822. The reference range was not used to interpret this result as normal/abnormal . Senior Solutions Consultant ID - BSIRON, TIBC, % SAT. (WITHOUT FERRITIN)2021-08-28 18:13:19 Test Item Value Reference Range Interpretation Comments IRON (BEAKER) (test code = 547) 139.0 ug/dL 40.0-160.0 TOTAL IRON BINDING CAPACITY 178 ug/dL 250-450 L (BEAKER) (test code = 769) IRON % SATURATION (2) (BEAKER) 78 % 20-55 H (test code = 2590) Senior Solutions Consultant ID - [id number] 16:36:26 Test Item Value Reference Range Interpretation Comments FERRITIN (BEAKER) (test code = 70047.56 ng/mL 5.00-275.00 H 361) Senior Solutions Consultant ID - BSOperator ID - [id number] 14:45:11 Test Item Value Reference Range Interpretation Comments ALPHA-1 ANTITRYPSIN 130.90 mg/dL 90.00-200.00 Specimen slightly (BEAKER) (test code = hemoly zed 502) Senior Solutions Consultant ID - DBPOCT-GLUCOSE [id number] 14:23:23 Test Item Value Reference Range Interpretation Comments POC-GLUCOSE METER 97 mg/dL 70-110 : TESTED A T [facility] 6720 (BEAKER) (test code = [facility], 1538) [address]: Senior Solutions Consultant/Techni dakota ID = [id number] for José Miguel Larkin POCT-GLUCOSE [id number] 08:20:47 Test Item Value Reference Range Interpretation Comments POC-GLUCOSE METER 85 mg/dL 70-110 : TESTED A T [facility] 6720 (BEAKER) (test code = [facility], 1538) [address]: Senior Solutions Consultant/Techni dakota ID = [id number] for José Miguel Larkin COMPREHENSIVE METABOLIC [id number] 06:21:17 Test Item Value Reference Range Interpretation [...] S NOT APPLICABLE FOR DIALYSIS PATIEN TS. Senior Solutions Consultant ID - [id number] 06:03:12 Test Item Value Reference Range Interpretation Comments MAGNESIUM (BEAKER) (test code = 1.8 mg/dL 1.6-2.6 627) Senior Solutions Consultant ID - DBCBC (HEMOGRAM ONLY)2021-08-28 05:04:44 Test [...] WBC 0-0 (test code = 413) POCT-GLUCOSE [id number] 22:30:31 Test Item Value Reference Range Interpretation Comments POC-GLUCOSE METER 99 mg/dL 70-110 : Notified RN/MD: TESTED (BEAKER) (test code = AT [facility] [address] [place], [place] [address]) [facility], 770 30: Senior Solutions Consultant/Techni dakota ID = [id number] for Artur Anders MR, ABDOMEN, [id number] 18:44:00Unlisted Reason for Exam - Click Yes and Enter Reason Below->No [facility] 2000 Sex: [...] No biliary ductal dilation. Signed: Armaan Llanes Verified Date/Time: 08/27/2021 18:44:20 Reading Location: [address] Body Reading Room MR, ABDOMEN, [id number] 18:44:00Pancreas protocol Unlisted Reason for Exam - Click Yes and Enter Reason Below->No Does the patient have an implanted electronic device?->No [facility] : 2000 Sex: [...] MDReport Verified Date/Time: 08/27/2021 18:44:20 Reading Location: [facility] B[facility] C013Y CT Body Reading Room COMPREHENSIVE METABOLIC [id number] 06:35:42 Test Item Value Reference Range Interpretation [...] S NOT APPLICABLE FOR DIALYSIS PATIEN TS. Senior Solutions Consultant ID Cherelle LÓPEZ [id number] 06:34:17 Test Item Value Reference Range Interpretation Comments MAGNESIUM (BEAKER) (test code = 2.1 mg/dL 1.6-2.6 627) Senior Solutions Consultant BEATRIZ LÓPEZ LCBC (HEMOGRAM ONLY)2021-08-27 06:06:14 Test Item Value [...] WBC 0-0 (BEAKER) (test code = 413) [id number] 12:41:39 Test Item Value Reference Range Interpretation Comments LIPASE (BEAKER) (test code = 749) 1190 U/L 8-78 H Senior Solutions Consultant ID - ALVINA MURINALYSIS W/ REFLEX URINE [id number] 07:27:57 Test Item Value Reference Range Interpretation [...] = 1521) SOURCE(BEAKER) (test code = 2795) Senior Solutions Consultant ID - [auto]Senior Solutions Consultant ID - tech(CELLAVISION MANUAL DIFF)2021-08-26 03:09:42 Test [...] CONCENTRATION Decreased (CELLAVISION)(BEAKER) (test code = 3438) Senior Solutions Consultant ID - [id number] ID - LaniUsmelissa comments: Slide comments:CBC W/PLT COUNT & AUTO [id number] 03:09:41 Test Item Value Reference Range Interpretation [...] (BEAKER) (test code = 413) COMPREHENSIVE METABOLIC [id number] 02:27:26 Test Item Value Reference Range Interpretation [...] S NOT APPLICABLE FOR DIALYSIS PATIEN TS. Senior Solutions Consultant ID - ALVINA [id number] 02:26:17 Test Item Value Reference Range Interpretation Comments TRIGLYCERIDES (BEAKER) (test code = 175 mg/dL 540) TRIGLYCERIDE REFERENCE RANGELow Risk <150Borderline Risk 150-199High Risk 200-499Very High Risk >=500Operator ID - ALVINA [id number] 02:26:16 Test Item Value Reference Range Interpretation Comments MAGNESIUM (BEAKER) (test code = 2.2 mg/dL 1.6-2.6 627) Senior Solutions Consultant ID - ALVINA MPROTHROMBIN [id number] 02:13:14 Test Item Value Reference Range Interpretation Comments PROTIME (BEAKER) 26.7 seconds 11.9-14.2 H (test code = 759) INR (BEAKER) (test 2.49 See_Comment [Automat ed message] code = 370) The system Cognitive Code generated this result transmitted ref erence range: <=5.90. The reference range was not used to int erpret this result as normal/abnormal . RECOMMENDED COUMADIN/WARFARIN INR THERAPY RANGESSTANDARD DOSE: 2.0 - 3.0 Includes: PROPHYLAXIS for venous thrombosis, systemic embolization; TREATMENT for venous thrombosis and/or pulmonary embolus.HIGH RISK: Target INR is 2.5-3.5 for patients with mechanical heart valves.
[2022-03-13] MEDS ORDERED: HYDROMORPHONE HCL 1 MG/ML INJ ONE ×2 (19:16→21:45)
[2022-03-13] MEDS ORDERED: NA CHLORIDE 0.9% 1,000 ML ONE (19:16)
[2022-03-13] MEDS ORDERED: ONDANSETRON 4 MG/2 ML VIAL ONE (19:16)
[2022-03-13 19:33] LABS: Absolute Lymphocytes (CBC) 1.4 K/uL (0.7-4.9); Hematocrit 47.6 % (39.6-49.0); Lymphocytes % 10.2 % (15.3-44.8); MCV 77.6 fL (80-100); MPV 7.8 fL (7.6-11.3); RBC Red Blood Cell Count 6.13 M/uL (4.33-5.43)
--- NOTE | 2022-03-13 19:55 | RAD REPORT ---
EXAM DESCRIPTION: RAD - Chest Single View - 03/13/2022 7:43 pm CLINICAL HISTORY: ABDOMINAL DISTENTION COMPARISON: Chest Single View dated 05/18/2019CT ABD PELVIS W CONTRAST dated 09/11/2011Chest Single V iew dated 02/22/2022; Chest Single View dated 08/25/2021 FINDINGS: Lines: None. Lungs: No evidence of edema or pneumonia. Pleural: No significant pleural effusions or pneumothorax. Cardiac: The heart size is within normal limits. Mediastinum: Within normal limits. Bones: No acute fractures. Other: None IMPRESSION: No acute cardiopulmonary disease.
[2022-03-13 20:07] LABS: Albumin 3.6 g/dL (3.4-5.0); Bilirubin Total 0.3 mg/dL (0.2-1.0); Potassium 4.2 mmol/L (3.5-5.1); Protein, Total 7.4 g/dL (6.4-8.2)
--- NOTE | 2022-03-13 21:19 | RAD REPORT ---
EXAM DESCRIPTION: CTAbdomen Pelvis W Contrast - 03/13/2022 8:57 pm CLINICAL HISTORY: left side abdomen pain COMPARISON: Abdomen Pelvis W Contrast dated 02/22/2022; Abdomen Pelvis W Contrast dated 01/24/2022; Abdomen Pelvis W Contrast dated 12/06/2021; Abdomen Pelvis W Contrast dated 08/25/2021 TECHNIQUE: CT of the abdomen and pelvis was performed with IV contrast. All CT scans are performed using dose optimization technique as appropriate and may include automated exposure control or mA/KV adjustment according to patient size. FINDINGS: Lower chest: No acute abnormality. Liver: Hepatic steatosis Biliary: No biliary ductal dilatation. Stomach: No significant focal abnormality. Duodenum: No significant focal abnormality. Pancreas: No significant abnormality. Spleen: Multiple splenic calcifications. Adrenal: No suspicious lesions. Kidney/ureter: No hydronephrosis. No renal calculi. Retroperitoneum: No retroperitoneal adenopathy. Vascular: No aneurysm. Bowel: No significant focal abnormality. Peritoneum: Complex gas and fluid containing collection along the greater curvature of the stomach, s pleen, and pancreatic tail is slightly smaller. Mild peripancreatic stranding. Bladder: Circumferential bladder wall thickening. Reproductive: No adnexal masses. Bones: No acute fracture. Other: n/a IMPRESSION: Sequela of prior pancreatitis with continued mild decrease in size of the peripancreatic fluid collection. No new acute findings identified.
--- NOTE | 2022-03-13 22:30 | ER ---
Nurse's Notes [facility] Name: Sal Gomez Age: 22 yrs Sex: Male : 2000 Arrival Date: 03/13/2022 Time: 18:24 Bed 16 Private MD: Diagnosis: Abdominal pain, unspecified;Intraabdominal fluid collection, improved;Acute cystitis Presentation: 03/13 18:42 Chief complaint: Patient states: "patient was discharged yesterday from [facility] at em6 the [facility] because of his pancreatitis. was told to come to ER if the pain continues. He states left side pain and has history of pancreatitis.". Coronavirus screen: Client denies travel out of the [place] in the last 14 days. Ebola Screen: Patient negative for fever greater than or equal to 101.5 degrees Fahrenheit, and additional compatible Ebola Virus Disease symptoms. Initial Sepsis Screen: Does the patient meet any 2 criteria? No. Patient's initial sepsis screen is negative. Does the patient have a suspected source of infection? No. Patient's initial sepsis screen is negative. Risk Assessment: Do you want to hurt yourself or someone else? Patient reports no desire to harm self or others. Onset of symptoms was March 13, 2022. 18:42 Method Of Arrival: Wheelchair em6 18:42 Acuity: DANICA 3 em6 Triage Assessment: 18:44 General: Appears uncomfortable, Behavior is cooperative. Pain: Complains of pain in em6 left upper quadrant and left lower quadrant Pain does not radiate. Pain currently is 8 out of 10 on a pain scale. Quality of pain is described as sharp, stabbing. Historical: - Allergies: 18:40 No Known Allergies; em6 - Home Meds: 18:40 carvedilol 25 mg Oral tab [Active]; Creon 24,000-76,000 -120,000 unit Oral cpDR 3 caps em6 3 times per day [Active]; gabapentin 300 mg Oral tab three times a day [Active]; metformin 500 mg Oral tab 1 tab 2 times per day [Active]; metoprolol tartrate 25 mg Oral tab 1 tab 2 times per day [Active]; prednisone 50 mg Oral tab once daily [Active]; Risperdal 0.5 mg Oral tab 1 tabs once daily [Active]; sertraline 50 mg Oral tab 1 tab once daily [Active]; trazodone 50 mg Oral tab 2 tabs once daily [Active]; Zoloft 25 mg Oral tab 1 tab once daily [Active]; - PMHx: 18: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 - Social history:: Smoking status: Patient reports the use of cigarette tobacco products. Screenin:45 Abuse screen: Denies threats or abuse. Nutritional screening: No deficits noted. em6 Tuberculosis screening: No symptoms or risk factors identified. Assessment: 19:20 General: Appears uncomfortable, ill, Behavior is cooperative, anxious. Pain: Complains ha1 of pain in abdomen. Neuro: Level of Consciousness is awake, alert, obeys commands, Oriented to person, place, time, situation. Cardiovascular: Capillary refill < 3 seconds Patient's skin is warm and dry. Respiratory: Airway is patent Trachea midline Respiratory effort is even, unlabored, Respiratory pattern is regular, symmetrical. GI: Abdomen is non-distended, obese, Reports lower abdominal pain, upper abdominal pain. : No signs and/or symptoms were reported regarding the genitourinary system. Derm: No signs and/or symptoms reported regarding the dermatologic system. Musculoskeletal: Circulation, motion, and sensation intact. Range of motion: intact in all extremities. 19:50 Reassessment: Patient and/or family updated on plan of care and expected duration. Pain ha1 level reassessed. Patient is alert, oriented x 3, equal unlabored respirations, skin warm/dry/pink. PAIN 10/27. 20:42 Reassessment: Patient and/or family updated on plan of care and expected duration. Pain ha1 level reassessed. Patient is alert, oriented x 3, equal unlabored respirations, skin warm/dry/pink. PT. REQUESTING PAIN MEDICATION. NOTIFIED CARE PROVIDER. PAIN 10/27. 21:40 Reassessment: Patient and/or family updated on plan of care and expected duration. Pain ha1 level reassessed. Patient is alert, oriented x 3, equal unlabored respirations, skin warm/dry/pink. 02/26. 22:35 Reassessment: Patient and/or family updated on plan of care and expected duration. Pain ha1 level reassessed. Patient is alert, oriented x 3, equal unlabored respirations, skin warm/dry/pink. 23:19 Reassessment: Patient and/or family updated on plan of care and expected duration. Pain ha1 level reassessed. Patient is alert, oriented x 3, equal unlabored respirations, skin warm/dry/pink. 03/14 00:15 Reassessment: Patient and/or family updated on plan of care and expected duration. Pain ha1 level reassessed. Patient is alert, oriented x 3, equal unlabored respirations, skin warm/dry/pink. pt. refused to sign discharge paper work. requested to talked to care provider. care provider was notified. pt. requesting to be transfer to [facility]. care provider explained that there was no reason for transfer. 00:18 Reassessment: Patient and/or family updated on plan of care and expected duration. Pain ha1 level reassessed. Patient is alert, oriented x 3, equal unlabored respirations, skin warm/dry/pink. leaving via wheelchair. Vital Signs: 03/13 18:42 BP 120 / 85; Pulse 107; Resp 18; Temp 98.1; Pulse Ox 100% on R/A; Weight 99.79 kg; em6 Height 5 ft. 8 in. (172.72 cm); Pain 8/10; 19:20 BP 113 / 70; Pulse 105; Resp 20 S; Pulse Ox 100% on R/A; Pain 10/10; ha1 19:50 BP 118 / 90; Pulse 94; Resp 19 S; Pulse Ox 100% on R/A; Pain 6/10; ha1 21:40 BP 131 / 91; Pulse 103; Resp 18 S; Pulse Ox 100% on R/A; ha1 22:15 BP 138 / 93; Pulse 96; Resp 18 S; Pulse Ox 98% on R/A; ha1 23:00 BP 141 / 90; Pulse 93; Resp 19 S; Pulse Ox 98% on R/A; ha1 18:42 Body Mass Index 33.45 (99.79 kg, 172.72 cm) em6 ED Course: 18:24 Patient arrived in ED. mr 18:26 Mauro Sandoval PA is PHCP. cp 18:26 Hi Mireles MD is Attending Physician. cp 18:27 Patient has correct armband on for positive identification. Placed in gown. Bed in low ha1 position. Call light in reach. Side rails up X 1. 18:28 Garret Nelson, ROSA is Primary Nurse. bp 18:44 Triage completed. em6 18:45 Arm band placed on. em6 18:45 Patient placed in an exam room, in a wheelchair. em6 19:16 Inserted saline lock: 22 gauge in left forearm, using aseptic technique. Blood ds4 collected. 19:44 XRAY Chest (1 view) In Process Unspecified. EDMS 20:58 CT Abd/Pelvis - IV Contrast Only In Process Unspecified. EDMS 03/14 00:19 No provider procedures requiring assistance completed. IV discontinued, intact, ha1 bleeding controlled, No redness/swelling at site. Pressure dressing applied. Administered Medications: 03/13 19:19 Drug: NS 0.9% 1000 ml Route: IV; Rate: 1 bolus; Site: left forearm; ha1 19:22 Drug: Zofran (Ondansetron) 4 mg Route: IVP; Site: left forearm; ha1 19:50 Follow up: Response: No adverse reaction ha1 19:23 Drug: Dilaudid (HYDROmorphone) 1 mg Route: IVP; Site: left forearm; ha1 19:50 Follow up: Response: No adverse reaction; Pain is decreased; RASS: Alert and Calm (0) ha1 21:47 Drug: Dilaudid (HYDROmorphone) 1 mg Route: IVP; Site: right forearm; ha1 22:15 Follow up: Response: No adverse reaction; Pain is unchanged, physician notified; RASS: ha1 Alert and Calm (0) 22:57 Drug: Rocephin - (cefTRIAXone) 1 grams Route: IVPB; Infused Over: 30 mins; Site: left ha1 forearm; 23:21 Follow up: Response: No adverse reaction; IV Status: Completed infusion; IV Intake: [id number] 23:00 Drug: Demerol (meperidine) 50 mg Route: IVP; Site: left forearm; ha1 23:20 Follow up: Response: No adverse reaction; Pain is decreased; RASS: Alert and Calm (0) ha1 23:02 Drug: Phenergan (promethazine) 25 mg Route: IM; Site: left vastus lateralis; ha1 03/14 00:12 Follow up: Response: No adverse reaction ha1 Medication: 00:19 VIS not applicable for this client. ha1 Intake: 03/13 23:21 IV: 50ml; Total: 50ml. ha1 Outcome: 22:30 Discharge ordered by MD. granger 03/14 00:19 Discharged to home via wheelchair. ha1 Condition: stable Discharge instructions given to patient, Instructed on discharge instructions, follow up and referral plans. medication usage, Demonstrated understanding of instructions, follow-up care, medications, Prescriptions given X 2. 00:20 Patient left the ED. ha1 Signatures: Dispatcher [employer] EDWA Matthias Divya RiosCleve ds4 Mauro Sandoval PA PA cp Peltier, Brian, RN RN bp Kayla Flores, ROSA RN ha1 Alida Arenas RN RN em6 Corrections: (The following items were deleted from the chart) 03/13 20:38 19:20 BP 113 / 70; Pulse 105bpm; Resp 20bpm; Spontaneous; Pulse Ox 100% RA; ha1 ha1 20:40 20:00 BP 118 / 90; Pulse 94bpm; Resp 19bpm; Spontaneous; Pulse Ox 100% RA; Pain 6/10; ha1 ha1
--- NOTE | 2022-03-13 22:30 | EDPHYS ---
Physician Documentation [facility] Name: Sal Gomez Age: 22 yrs Sex: Male : 2000 Arrival Date: 03/13/2022 Time: 18:24 Bed 16 Private MD: ED Physician Hi Mireles HPI: 03/13 19:00 This 22 yrs old Male presents to ER via Wheelchair with complaints of PANCREATITIS. cp 19:00 The patient presents with abdominal pain in the left upper quadrant, in the left lower cp quadrant. Onset: The symptoms/episode began/occurred today. Associated signs and symptoms: Pertinent positives: nausea and vomiting, Pertinent negatives: chest pain, constipation, diarrhea, dysuria, fever, shortness of breath, testicular pain. 19:00 The symptoms do not radiate. The symptoms are described as constant. Severity of pain: cp in the emergency department the pain is unchanged despite home interventions. The patient has been recently seen by a physician: recent discharge from [facility] yesterday for pancreatitis. Historical: - Allergies: 18:40 No Known Allergies; em6 - Home Meds: 18:40 carvedilol 25 mg Oral tab [Active]; Creon 24,000-76,000 -120,000 unit Oral cpDR 3 caps em6 3 times per day [Active]; gabapentin 300 mg Oral tab three times a day [Active]; metformin 500 mg Oral tab 1 tab 2 times per day [Active]; metoprolol tartrate 25 mg Oral tab 1 tab 2 times per day [Active]; prednisone 50 mg Oral tab once daily [Active]; Risperdal 0.5 mg Oral tab 1 tabs once daily [Active]; sertraline 50 mg Oral tab 1 tab once daily [Active]; trazodone 50 mg Oral tab 2 tabs once daily [Active]; Zoloft 25 mg Oral tab 1 tab once daily [Active]; - PMHx: 18: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 - Social history:: Smoking status: Patient reports the use of cigarette tobacco products. ROS: 19:05 Constitutional: Positive for poor PO intake, Negative for body aches, chills, fever. cp 19:05 Eyes: Negative for injury, pain, redness, and discharge. cp 19:05 ENT: Negative for drainage from ear(s), ear pain, sore throat, difficulty swallowing, difficulty handling secretions. 19:05 Cardiovascular: Negative for chest pain. 19:05 Respiratory: Negative for cough, shortness of breath, wheezing. 19:05 Abdomen/GI: Positive for abdominal pain, nausea and vomiting, Negative for diarrhea, constipation, hematemesis, black/tarry stool, rectal bleeding. 19:05 Back: Negative for pain at rest, pain with movement. 19:05 Neuro: Negative for altered mental status, dizziness, headache, weakness. 19:05 All other systems are negative. Exam: 19:10 Constitutional: The patient appears in no acute distress, alert, awake, cp non-diaphoretic, non-toxic, well developed, well nourished, uncomfortable. 19:10 Head/Face: Normocephalic, atraumatic. cp 19:10 Eyes: Periorbital structures: appear normal, Conjunctiva: normal, no exudate, no injection, Sclera: no appreciated abnormality, Lids and lashes: appear normal, bilaterally. 19:10 ENT: External ear(s): are unremarkable, Nose: is normal, Mouth: Lips: moist, Oral mucosa: pink and intact, moist, Posterior pharynx: Airway: no evidence of obstruction, patent. 19:10 Chest/axilla: Inspection: normal, Palpation: is normal, no crepitus, no tenderness. 19:10 Cardiovascular: Rate: tachycardic, Rhythm: regular, Edema: is not appreciated, JVD: is not appreciated. 19:10 Respiratory: the patient does not display signs of respiratory distress, Respirations: normal, no use of accessory muscles, no retractions, labored breathing, is not present, Breath sounds: are clear throughout, no decreased breath sounds, no stridor, no wheezing. 19:10 Abdomen/GI: Inspection: scar(s), mid line of abdomen, Bowel sounds: active, all quadrants, Palpation: soft, in all quadrants, severe abdominal tenderness, in the left upper quadrant and left lower quadrant, rebound tenderness, is not appreciated, involuntary guarding, is not appreciated. 19:10 Back: pain, is absent, ROM is normal. 19:10 Skin: cellulitis, is not appreciated, no rash present. 19:10 Neuro: Orientation: to person, place \T\ time. Mentation: is normal, Motor: moves all fours, strength is normal, Sensation: is normal. Vital Signs: 18:42 BP 120 / 85; Pulse 107; Resp 18; Temp 98.1; Pulse Ox 100% on R/A; Weight 99.79 kg; em6 Height 5 ft. 8 in. (172.72 cm); Pain 8/10; 19:20 BP 113 / 70; Pulse 105; Resp 20 S; Pulse Ox 100% on R/A; Pain 10/10; ha1 19:50 BP 118 / 90; Pulse 94; Resp 19 S; Pulse Ox 100% on R/A; Pain 6/10; ha1 21:40 BP 131 / 91; Pulse 103; Resp 18 S; Pulse Ox 100% on R/A; ha1 22:15 BP 138 / 93; Pulse 96; Resp 18 S; Pulse Ox 98% on R/A; ha1 23:00 BP 141 / 90; Pulse 93; Resp 19 S; Pulse Ox 98% on R/A; ha1 18:42 Body Mass Index 33.45 (99.79 kg, 172.72 cm) em6 MDM: 18:27 Patient medically screened. cp 19:00 Differential diagnosis: bowel obstruction, non-specific abd pain, pancreatitis, cp Pyelonephritis, Ureterolithiasis, urinary tract infection. 22:30 Data reviewed: vital signs, nurses notes, lab test result(s), radiologic studies, CT cp scan, I have discussed the patient's presentation/case with the attending Emergency Department Physician; and as a result, I will discharge patient. 22:30 Counseling: I had a detailed discussion with the patient and/or guardian regarding: the cp historical points, exam findings, and any diagnostic results supporting the discharge/admit diagnosis, lab results, radiology results, the need for outpatient follow up, for definitive care, primary surgeon, to return to the emergency department if symptoms worsen or persist or if there are any questions or concerns that arise at home. Response to treatment: Pain and nausea improved. CT abdomen/pelvis negative for acute surgical findings. Will discharge to home for continued monitoring. 03/13 18:51 Order name: CBC with Diff; Complete Time: 19:44 cp 03/13 19:44 Interpretation: Normal except: WBC 13.90; RBC 6.13; MCV 77.6; MCH 25.6; RDW 19.0; SAE% cp 81.6; LYM% 10.2; NEUT A 11.4. 03/13 18:51 Order name: CMP; Complete Time: 20:18 cp 03/13 22:24 Interpretation: Normal except: NA 135; CL 96; ANION GAP 15.2; GLOB 3.8; A/G 0.9. cp 03/13 18:51 Order name: Lipase; Complete Time: 20:18 cp 03/13 18:51 Order name: Urine Microscopic Only; Complete Time: 23:21 cp 03/13 23:22 Interpretation: Normal except: URBC 11-20. cp 03/13 18:51 Order name: XRAY Chest (1 view); Complete Time: 20:18 cp 03/13 22:37 Order name: Urine Dipstick-Ancillary; Complete Time: 23:21 EDMS 03/13 23:22 Interpretation: Normal except: UBLD 3+; UPROT 3+. cp 03/13 19:56 Order name: CT Abd/Pelvis - IV Contrast Only; Complete Time: 21:50 cp 03/13 18:51 Order name: IV Saline Lock; Complete Time: 19:15 cp 03/13 18:51 Order name: Labs collected and sent; Complete Time: 19:16 cp 03/13 18:51 Order name: Urine Dipstick-Ancillary (obtain specimen); Complete Time: 23:12 cp 03/13 21:55 Order name: PO challenge; Complete Time: 23:12 cp Administered Medications: 19:19 Drug: NS 0.9% 1000 ml Route: IV; Rate: 1 bolus; Site: left forearm; ha1 19:22 Drug: Zofran (Ondansetron) 4 mg Route: IVP; Site: left forearm; ha1 19:50 Follow up: Response: No adverse reaction ha1 19:23 Drug: Dilaudid (HYDROmorphone) 1 mg Route: IVP; Site: left forearm; ha1 19:50 Follow up: Response: No adverse reaction; Pain is decreased; RASS: Alert and Calm (0) ha1 21:47 Drug: Dilaudid (HYDROmorphone) 1 mg Route: IVP; Site: right forearm; ha1 22:15 Follow up: Response: No adverse reaction; Pain is unchanged, physician notified; RASS: 1 Alert and Calm (0) 22:57 Drug: Rocephin - (cefTRIAXone) 1 grams Route: IVPB; Infused Over: 30 mins; Site: left ha1 forearm; 23:21 Follow up: Response: No adverse reaction; IV Status: Completed infusion; IV Intake: [id number] 23:00 Drug: Demerol (meperidine) 50 mg Route: IVP; Site: left forearm; ha 23:20 Follow up: Response: No adverse reaction; Pain is decreased; RASS: Alert and Calm (0) [facility] 23:02 Drug: Phenergan (promethazine) 25 mg Route: IM; Site: left vastus lateralis; [facility] 03/14 00:12 Follow up: Response: No adverse reaction [facility] Disposition Summary: 03/13/22 22:30 Discharge Ordered Location: Home cp Problem: an ongoing problem cp Symptoms: have improved cp Condition: Stable cp Diagnosis - Abdominal pain, unspecified cp - Intraabdominal fluid collection, improved cp - Acute cystitis cp Followup: cp - With: Private Physician - When: 1 - 2 days - Reason: Recheck today's complaints Discharge Instructions: - Discharge Summary Sheet cp - Abdominal Pain, Adult cp Forms: - Medication Reconciliation Form cp - Thank You Letter cp - Antibiotic Education cp - Prescription Opioid Use cp Prescriptions: - Cipro 500 mg Oral Tablet - take 1 tablet by ORAL route every 12 hours for 7 days; 14 tablet; Refills: 0, cp Product Selection Permitted - Tylenol-Codeine #3 300 mg-30 mg Oral - take 2 tablet by ORAL route every 8-10 hours; 12 tablet; Refills: 0, Product cp Selection Permitted Signatures: Dispatcher [employer] EDMS Alfredito Lorenzo FNP-C [employer]IOR [employer] DEVELOPER-Cla1 Mauro Sandoval PA PA cp Kayla Flores RN RN ha1 Alida Arenas RN RN em6 Corrections: (The following items were deleted from the chart) 23:09 03/13 19:00 The patient has been recently seen by a physician: recent discharge from [facility] yesterday for necrotizing pancreatitis, cp
[2022-03-13 22:36] LABS: Urine Blood 3+ (Negative); Urine Glucose Negative (Negative); Urine Protein 3+ (Negative); Urine Specific Gravity >=1.030 (1.005-1.030)
[2022-03-13] MEDS ORDERED: PROMETHAZINE INJ 25 MG/ML AMP ONE (22:49)
[2022-03-13] MEDS ORDERED: CEFTRIAXONE 1000 MG/VIAL ONE (22:49)
[2022-03-13] MEDS ORDERED: NA CHLORIDE 0.9% 50 ML IV ONE (22:50)
[2022-03-13] MEDS ORDERED: MEPERIDINE HCL 25 MG/ML SYR ONE (23:05)
[2022-03-13 23:21] LABS: Urine Mucus 2+ /HPF (None Seen)
[2022-03-14 00:37] VITALS: TEMP 98.1
[2022-03-14 00:42] VITALS: O2SAT 98
[2022-03-14 00:43] VITALS: BP 141/90
== END 2022-03-14 00:20 | disposition home or self-care (01) ==
LOC: ER 18:16
DX: N30.00 Acute cystitis without hematuria (principal); R19.00 Intra-abdominal and pelvic swelling, mass and lump, unspecified site; I10 Essential (primary) hypertension; Z72.0 Tobacco use
CPT/HCPCS: 85025; 36415; 83690; 80053; 74177; 71045; 96372; 99284; Q9967; J2550; J2175; J1170 ×2; J7030; J2405; 81003; 81015

== ENCOUNTER 2022-03-15 19:22 | Emergency (ER) | payer OTHER ==
[2022-03-15] MEDS ORDERED: MORPHINE 4 MG/ML SYR ONE ×2 (19:58→21:46)
[2022-03-15] MEDS ORDERED: NA CHLORIDE 0.9% 1,000 ML ONE (19:58)
[2022-03-15] MEDS ORDERED: FAMOTIDINE 20 MG/2 ML VIAL IV ONE (19:58)
[2022-03-15] MEDS ORDERED: ONDANSETRON 4 MG/2 ML VIAL ONE (19:58)
--- OUTSIDE RECORDS SUMMARY | 2022-03-15 19:59 | XMS REPORT | Continuity of Care Document ---
:2000 Author Organization [facility] t Address [address] [place] [address] Care Team Providers Name Role Phone Pcp, Patient Does Not Have A Primary Care Physician [phone] [id number] Attending Clinician Unavailable WILLARD CROUCH EMILE Attending Clinician Unavailable Bro MANUEL, Stefany Attending Clinician ANETA GUTIERREZ Attending Clinician Unavailable Aneta Gutierrez DO Attending Clinician SILVIO RASCON Attending Clinician Unavailable Evangelist MANUEL, Silvio Mccray Attending Clinician Masood MANUEL, Cy Attending Clinician Willard Crouch Attending Clinician Unavailable IRINA BENITEZ Attending Clinician Unavailable Estrada MANUEL, Gricelda Galindo Attending Clinician Gabriel MANUEL, Nilsa Graham Attending Clinician Keron Hess MD Attending Clinician Galo MANUEL, Shama Angulo Attending Clinician Irina Benitez MD Attending Clinician Tamia Jha Attending Clinician Hallie MANUEL, Marck Johnson Attending Clinician [phone] Lissette MANUEL, Amado Attending Clinician Shawn Lamar Attending Clinician Millie Gomez MD Attending Clinician BETHANY DURHAM Attending Clinician Unavailable Laith MANUEL, Khushi Goode Attending Clinician [phone] Marva AMNUEL, Bethany Roberts Attending Clinician Melissa Leung MD Attending Clinician Shala MANUEL, Suhail Conner Attending Clinician [phone] AMADO GOYAL Attending Clinician Unavailable DOUG JOSHI Attending Clinician Unavailable SUHAIL MAN Attending Clinician Unavailable Edouard MANUEL, Kimmy Madrid Attending Clinician Rebecca MANUEL, Kathy Echols Attending Clinician [phone] Cherri MANUEL, Aravind Ordaz Attending Clinician Vicki MANUEL, Ary Hargrove Attending Clinician [phone] Victor M MANUEL, Mana Mireles Attending Clinician Mervin MANUEL, Vernell Hunt Attending Clinician [phone] Rose Lorenzo MD Attending Clinician Karen MANUEL, Oren Attending Clinician Rebecca Cuellar MD Attending Clinician BEAR OSPINA Attending Clinician Unavailable [id number] Admitting Clinician Unavailable TI, WILLARD, WILLARD Admitting Clinician Unavailable SILVIO RASCON Admitting Clinician Unavailable Ti, Willard Admitting Clinician Unavailable GRICELDA ARTEAGA Admitting Clinician Unavailable BETHANY DURHAM Admitting Clinician Unavailable KNOW, DOES_NOT Admitting Clinician Unavailable CY CORREIA Admitting Clinician Unavailable VERNELL GONZALEZ Admitting Clinician Unavailable Payers Payer Name Policy Type Policy Number Effective Date Expiration Date Annette borja CIG CIG [id number] [facility] [id number] [facility] [id number] MEDICAID OF [place] [id number] 2021 00:00:00 GENERIC-CIGNA - [id number] 2021 2021 CIGNA 00:00:00 00:00:00 [facility] [id number] [facility]-MEDICAID - [id number] MEDICAID MEDICAID [place] [id number] 2021 00:00:00 Problems Condition Condition Condition Status Onset Resolution Last Treating Co mments Source Name Details Category Date Date Treatment Clinician Date Abscess Abscess Disease Active 2021-[address] [facility] between between 0-20 [facility] intestinal intestinal 00:00: Me dical loops loops 00 [place] Abscess Abscess Disease Active [facility] 9[facility]08 [facility] 00:00: Medical 00 [place] Intra-abdo Intra-abdo Disease Active [facility] modesta modesta 7-21 [facility] abscess abscess 00:00: Medical 00 [place] Necrotizin Necrotizin Disease Active [facility] g g 5-12 [facility] pancreatit pancreatit 00:00: Me dical is is 00 [place] Severe Severe Disease Active [facility] protein-ca protein-ca 4-15 [facility] tracy tracy 00:00: Medical malnutriti malnutriti 00 Ce nter on (Gorman: on (Gorman: less than less than 60% of 60% of standard standard weight) weight) Elevated Elevated Disease Active [facility] ferritin ferritin 4-13 [facility] (>16k) (>16k) 00:00: Medical 00 Center Pancytopen Pancytopen Disease Active [facility] ia ia 4-13 [facility] 00:00: Medical 00 [place] Pre-diabet Pre-diabet Disease Active [facility] es es 4-09 [facility] 00:00: Medical 00 [place] Hx of TIA Hx of TIA Disease Active [facility] (transient (transient 409 [facility] kes ischemic ischemic 00:00: Medica l attack) [...] Disease Active [facility] ubinemia ubinemia 4 [facility] 00:[facility]: Medical 00 Center Elevated Elevated Disease Active [facility] LFTs LFTs 08-25 [facility] 00:[facility]: Medical 00 Center SLE SLE Disease Active [facility] (systemic (systemic 4 [facility] 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:00: Medical erythemato erythemato 00 Ce nter margot margot related related syndrome) syndrome) Bipolar Bipolar Disease Active [facility] disorder disorder 08-25 [facility] 00:00: Medical 00 [place] Essential Essential Disease Active [facility] hypertensi hypertensi 08-25 [facility] kes on on 00:00: Medical 00 Center Allergies, Adverse Reactions, Alerts Allergy Allergy Status Severity Reaction(s) Onset Inactive Treating Comm ents Source Name Type Date Date Clinician ADHESIVE Allergy Active 2021-05 [facility] TAPE 0-21 00:00: 00 Adhesive Propensi Active 2021-[address] [facility] Tape ty to 0-21 [facility] adverse 00:00: Medical reaction 00 Center s NO KNOWN Allergy Active [facility] ALLERGIE [facility] NO KNOWN Drug Active [facility] ALLERGIE Class ity of S [facility] Family History Family Member Diagnosis Comments Start Date Stop Date Source Natural father Drug abuse [facility] Natural mother Drug abuse [facility] Social History Social Habit Start Date Stop Date Quantity Comments Source History SDOH [facility] Exposure to 2022-03-04 2022-03-14 Not sure University of SARS-CoV-2 00:00:00 14:36:00 [facility] (event) Branch Alcohol intake 2022-03-08 2022-03-08 Ex-drinker [facility] es 00:00:00 00:00:00 (finding) [facility] Tobacco use and 2021-12-08 2021-12-[address] [facility] exposure 00:00:00 00:00:00 Medical Center History [facility] 2021-12-08 2021-12-08 2 [facility] Transport Med 00:00:00 00:00:[address] History [facility] 2021-12-08 2021-12-08 [address] [facility] [address] [facility] Housing Unable to 00:00:00 00:00:00 Medical Center Pay History [facility] 2021-12-08 2021-12-08 2 [facility] Housing Homeless 00:00:00 00:00:00 Medical Center Last Year History [facility] 2021-08-26 2021-08-26 3 [facility] Housing Places 00:00:00 00:00:00 Medical Ce nter Lived Sex Assigned At 2000 2001 [facility] 00:00:00 00:00:00 Medical Center Smoking Status Start Date Stop Date Source Tobacco smoking [place] consumption unknown Medical Bran ch Former smoker 2021-12-08 00:00:00 2021-12-08 [facility] Medical 00:00:00 Center Medications Ordered Filled Start Stop Current Ordering Indication Dosage Frequency Signature Comments Components Source Medication Medication Date Date Medication? Clinician (SIG) Name Name HYDROcodone 2021-05 1{tbl} 1 tablet, Univers -acetaminop 0-03-14 Oral, ity of hen (NORCO) 22:30: 22:20 [place] 10-325 mg 00 :00 dose, On Medica l tablet 1 Wed Branch tablet 03/14/22 at 1730, Routine iopamidol 2021-05- No [id number] 65mL 65 mL, Un hillary (ISOVUE 003-14 Intravenou ity o f 370-500 mL) 21:30: 21:30 s, ONCE, 1 [place] injection 00 :00 dose, On Medica l 65 mL Wed Branch 03/14/22 at 1630, Routine ondansetron 2021-05- No 4mg 4 mg, Slow Univers (ZOFRAN 0-03-14 IV Push, ity of (PF)) 20:45: 20:44 ONCE, 1 [place] injection 4 00 :00 dose, On Medi doreen mg Wed Branch 03/14/22 at 1545, JON morpHINE (4 2022-1 2022- No 4mg 4 mg, Slow Univers mg/mL) 0-14 03- IV Push, ity of injection 4 20:45: 20:44 ONCE, 1 [place] mg 00 :00 dose, On Medical Wed Branch 03/14/22 at 1545, STAT NaCl 0.9% 2021-05- No 30mL/kg at 999 Un hillary (NS) bolus 0- 10-26 mL/hr, ity of infusion 20:15: 23:27 2,994 [place] 2,994 mL 00 :00 (30 mL/kg Medica l ?99.8 kg), Branch IV Piggyback, ONCE, 1 dose, On 03/14/22 at 1515, STAT ertapenem 2021-05- No 1000mg 1,000 mg, Univers (INVANZ) 0- IV ity of 1,000 mg in 19:30: 21:22 Piggyback, [place] NaCl 0.9% 00 :00 ONCE, 1 Medical (NS) 50 mL dose, On [facility] h MINI-BAG 03/14/22 at 1430, Administer over 30 Minutes, 50 mL
Reas on for Anti-Infec tive: Documented Infection< br>Documen hernandez Infection Site: Abdominal& lt;br>Dura tion of Therapy: 7 days
Re stricted use approved by: Documented ESBL infection or colonizati on cefdinir 2021-05- Yes [id number] 300mg Take 1 Un hillary 300 mg 0- 11-10 capsule by ity of capsule 00:00: 05:59 mouth [place] 00 :00 every 12 Medical (twelve) Branch hours for 14 days. metroNIDAZO 2021-05- Yes [id number] 500mg Take 1 Univers LE 500 mg 0-26 11-10 tablet by ity of tablet 00:00: 05:59 mouth in [place] 00 :00 the Medical morning Branch and 1 tablet in the evening. Do all this for 14 days. fluconazole 2021-05- Yes [id number] 150mg Take 1 Univers 150 mg 0-26 11-10 tablet by ity of tablet 00:00: 05:59 mouth in [place] 00 :00 the Medical morning Branch for 14 doses. enoxaparin 2021-05 Yes 40mg QD Inject [address] (LOVENOX) 0-25 mg [facility] 40 mg/0.4 15:17: subcutaneo Me dical mL Syrg 26 [facility] Center daily. enoxaparin 2021-05 Yes 40mg QD Inject [address] (LOVENOX) 0-25 mg [facility] 40 mg/0.4 15:17: subcutaneo Me dical mL Syrg 26 [facility] Center daily. fluconazole 2021-05- Yes 400mg QD Take [address] (DIFLUCAN) 0-25 11-20 tablets [facility] 200 MG 00:00: 23:59 (400 mg Medical tablet 00 :00 total) by Center mouth daily for 26 days. fluconazole 2021-05- Yes 400mg QD Take 2 [...] mouth daily for 14 days. predniSONE 2021-05- Yes 7.5mg QD Take [...] by Center mouth daily for 5 days. predniSONE 2021-05- No 7.5mg QD Take [address] [facility] (DELTASONE) 0-25 10-24 tablets Luke s 2.5 MG 00:00: 00:00 (7.5 mg Medical tablet 00 :00 total) by Center mouth daily for 5 days. risperiDONE 2021-05- No .5mg QD Take 0.[address] (RisperDAL) 0-24 10-24 mg by [facility] 0.5 MG 12:03: 00:00 mouth Medical tablet 30 :00 daily. [place] metFORMIN 2021-05- No 500mg Take [address] (GLUCOPHAGE 0-24 10-24 mg by [facility] ) 500 MG 12:03: 00:00 mouth 2 Medic al tablet 30 :00 (two) Center times daily with breakfast and dinner. traZODone 2021-05- No 100mg QD Take [address] (DESYREL) 0-24 10-24 mg by [facility] 100 MG 12:03: 00:00 mouth Medical tablet 30 :00 nightly. [place] risperiDONE 2021-05- No .5mg QD Take 0.[address] (RisperDAL) 0-24 10-24 mg by [facility] 0.5 MG 12:03: 00:00 mouth Medical tablet 30 :00 daily. [place] metFORMIN 2021-05 No 500mg Take [address] (GLUCOPHAGE 0-24 10-24 mg by [facility] ) 500 MG 12:03: 00:00 mouth 2 Medic al tablet 30 :00 (two) Center times daily with breakfast and dinner. traZODone 2021-05 No 100mg QD Take [address] (DESYREL) 0-24 10-24 mg by [facility] 100 MG 12:03: 00:00 mouth Medical tablet 30 :00 nightly. [place] HYDROcodone 2021-05 Yes 1{tbl} Take [address] -acetaminop 0-24 tablet by Jody es tyson (NORCO 00:00: mouth Medica l 5-325) 00 every 6 Center 5-325 mg (six) per tablet hours as needed for Pain for up to 10 doses. Max Daily Amount: 4 tablets HYDROcodone 2021-05 Yes 1{tbl} Take [address] -acetaminop 0-24 tablet by Jody es hen (NORCO 00:00: [...] r tablet mouth 2 (two) times daily. mycophenola 2021-05- Yes 180mg Q.5D Take 1 [...] 2 (two) times daily for 27 days. metroNIDAZO 2021-05- Yes 500mg Take 1 CH [...] for 27 days. gabapentin 2021-05- Yes 400mg Q.[id number] Take [address] [facility] (NEURONTIN) 0-24 10- [id number] capsule [facility] 400 MG 00:00: 23:59 3D [...] Q.5D Take [address] [facility] [facility] tartrate 0-24 - tablet (25 Luke s (LOPRESSOR) 00:00: 23:59 mg total) Medical 25 MG 00 :00 by mouth 2 Center tablet (two) times daily for 5 days. hydrOXYchlo 2021-05- Yes 200mg Q.5D Take [address] roQUINE 0-24 - tablet [facility] (PLAQUENIL) 00:00: 23:59 (200 mg Me dical 200 mg 00 :00 total) by Center tablet mouth 2 (two) times daily for 5 days. pantoprazol 2021-05- Yes 40mg QD Take [address] [facility] e 0-12 03- tablet (40 [facility] (PROTONIX) 00:00: 23:59 mg total) M edical 40 MG 00 :00 by mouth Center tablet daily for 5 days. risperiDONE 2021-05- Yes .5mg QD Take [address] [facility] (RisperDAL) 0-03-17 tablet [facility] 0.5 MG 00:00: 23:59 (0.5 mg Medical tablet 00 :00 total) by Center mouth daily for 5 days. sertraline 2021-05- Yes 50mg QD Take [address] [facility] (ZOLOFT) 50 0-12 03- tablet (50 L ukes MG tablet 00:00: 23:59 mg total) Me dical 00 :00 by mouth Center daily for 5 days. traZODone 2021-05- Yes 100mg QD Take [address] [facility] (DESYREL) 0-12 03- tablet [facility] 100 MG 00:00: 23:59 (100 mg Medical tablet 00 :00 total) by Center mouth nightly for 5 days. gabapentin 2021-05- Yes 400mg Q.[id number] Take [address] [facility] (NEURONTIN) 0-24 - [id number] capsule [facility] 400 MG 00:00: 23:59 3D (400 mg Medical capsule 00 :00 total) by Center mouth 3 (three) times daily for 5 days. morphine 2021-05- Yes 30mg Take [address] [facility] (MS CONTIN) 0-24 -29 tablet (30 L ukes 30 MG 12 hr 00:00: 23:59 mg total) Medical tablet 00 :00 by mouth Center every 12 (twelve) hours for 5 days. Max Daily Amount: 60 mg metoprolol 2021-05- Yes 25mg Q.5D Take [address] tartrate 0-24 - tablet (25 Luke s (LOPRESSOR) 00:00: 23:59 mg total) Medical 25 MG 00 :00 by mouth 2 Center tablet (two) times daily for 5 days. hydrOXYchlo 2021-05- Yes 200mg Q.5D Take [address] roQUINE 0-03-17 tablet [facility] (PLAQUENIL) 00:00: 23:59 (200 mg [...] .5mg QD Take [address] [facility] [facility] (RisperDAL) 003-17 tablet [facility] 0.5 MG 00:00: 23:59 (0.5 mg Medical tablet 00 :00 total) by Center mouth daily for 5 days. sertraline 2021-05- Yes 50mg QD Take [address] (ZOLOFT) 50 003-17 tablet (50 L ukes MG tablet 00:00: 23:59 mg total) Me dical 00 :00 by mouth Center daily for 5 days. traZODone 2021-05- Yes 100mg QD Take [address] [facility] [address] (DESYREL) 003-17 tablet [facility] 100 MG 00:00: 23:59 (100 mg Medical tablet 00 :00 total) by Center mouth nightly for 5 days. predniSONE 2021- No 7.5mg QD Take [address] [facility] (DELTASONE) 02-12 10- tablets Luke s 2.5 MG 00:00: 23:59 (7.5 mg Medical tablet 00 :00 total) by Center mouth daily for 10 days. predniSONE 2021- No 7.5mg QD Take [address] [facility] (DELTASONE) 02-12 10-06 tablets Luke s 2.5 MG 00:00: 23:59 (7.5 mg Medical tablet 00 :00 total) by Center mouth daily for 10 days. fluconazole 2021- No 200mg QD Take [address] (DIFLUCAN) 02-12- tablet [facility] 200 MG 00:00: 23:59 (200 mg Medical tablet 00 :00 total) by Center mouth daily for 7 days. fluconazole 2021- No 200mg QD Take [address] (DIFLUCAN) 02-12 tablet [facility] 200 MG 00:00: 23:59 (200 mg Medical tablet 00 :00 total) by Center mouth daily for 7 days. lidocaine 2021- Yes 1{patch Q24H Place [address] (LIDODERM) 9-25 10-25 } patch onto Jessica kes 5 % patch 00:00: 23:59 the skin Med ical 00 :00 daily for Center 30 days Remove & Discard patch within 12 hours or as directed by . lidocaine 2021- No 1{patch Q24H Place [address] (LIDODERM) 9-25 10-25 } patch onto Jessica kes 5 % patch 00:00: 23:59 the skin Med ical 00 :00 daily for Center 30 days Remove & Discard patch within 12 hours or as directed by . ciprofloxac 2021- No 500mg Take [address] in HCl 9- 10-24 tablet [facility] (CIPRO) 500 00:00: 00:00 [...] Take [address] LE (FLAGYL) 9-25 10-24 tablet [facility] 500 MG 00:00: 00:00 (500 mg Medical tablet 00 :00 total) by Center mouth every 8 (eight) hours. insulin 2021-2021- No 0U Inject 0-[address] lispro 9-25 10-24 Units [facility] (HumaLOG) 00:00: 00:00 subcutaneo M edical 100 unit/mL 00 :00 usly 3 Center injection (three) times daily before meals. mycophenola 2021-0 2022- No 250mg Q.5D Take [address] te 9-25 10-24 capsule [facility] (CELLCEPT) 00:00: 00:00 (250 mg Med ical 250 mg 00 :00 total) by Center capsule mouth 2 (two) times daily. ciprofloxac 2021-2021- No 500mg Take [address] in HCl 9-25 10-24 tablet [facility] (CIPRO) 500 00:00: 00:00 (500 mg Me dical MG tablet 00 :00 total) by Cente r mouth every 12 (twelve) hours. senna-docus 2021-2021- No 2{tbl} Q.5D Take [address] ate 9-25 10-24 tablets by [facility] (SENOKOT S) 00:00: 00:00 mouth 2 Me dical 8.6-50 mg 00 :00 (two) Center per tablet times daily. metroNIDAZO 2021-2021- No 500mg Take [address] LE (FLAGYL) 9-25 10-24 tablet [facility] 500 MG 00:00: 00:00 (500 mg Medical tablet 00 :00 total) by Center mouth every 8 (eight) hours. insulin 2021- 202- No 0U Inject 0-[address] lispro 9-25 10-24 Units [facility] (HumaLOG) 00:00: 00:00 subcutaneo M edical 100 unit/mL 00 :00 usly 3 Center injection (three) times daily before meals. mycophenola 2021-0 2022- No 250mg Q.5D Take [address] te 9-25 10-24 capsule [facility] (CELLCEPT) 00:00: 00:00 (250 mg Med ical 250 mg 00 :00 total) by Center capsule mouth 2 (two) times daily. traMADoL 2021-0 202- No 100mg Q.25D Take [address] 100 mg Tab 9-25 10-05 mg by [facility]ukes 00:00: 23:59 mouth 4 Medical 00 :00 (four) Center times daily for 10 days. Max Daily Amount: 400 mg methocarbam 2022-0 2022- No 500mg Q.25D Take [address] oL 9-25 10-05 tablet [facility] (ROBAXIN) 00:00: 23:59 (500 mg Medi doreen 500 MG 00 :00 total) by Center tablet mouth 4 (four) times daily for 10 days. traMADoL 2021-0 2022- No 100mg Q.25D Take [address] 100 mg Tab 9-25 10-05 mg by [facility] 00:00: 23:59 mouth 4 Medical 00 :00 (four) Center times daily for 10 days. Max Daily Amount: 400 mg methocarbam 2021-0 2022- No 500mg Q.25D Take [address] oL 9-25 10-05 tablet [facility] (ROBAXIN) 00:00: 23:59 (500 mg Medi doreen 500 MG 00 :00 total) by Center tablet mouth 4 (four) times daily for 10 days. polyethylen 202-0 2022- No 17g Q.5D Take [address] [facility] e glycol 9-25 09-28 by mouth 2 Luke s (GLYCOLAX) 00:00: 23:59 (two) Medic al 17 gram 00 :00 times Center packet daily for 3 days. polyethylen 2022-0 2022- No 17g Q.5D Take [address] [facility] e glycol 9-25 09-28 by mouth 2 Luke s (GLYCOLAX) 00:00: 23:59 (two) Medic al 17 gram 00 :00 times Center packet daily for 3 days. mycophenola 2022-0 2022- No 500mg Q.5D Take [address] te 8-17 09-25 tablet [facility] (CELLCEPT) 00:00: 00:00 (500 mg Med ical 500 mg 00 :00 total) by Center tablet mouth 2 (two) times daily for 30 days. mycophenola 2022-0 2022- No 500mg Q.5D Take [address] te 8-17 09-25 tablet [facility] (CELLCEPT) 00:00: 00:00 (500 mg [...] 2021- No Take [address] [facility] (DELTASONE) 12-26-25 tablets Luke s 5 MG tablet 00:00: 00:00 (25 mg Med ical 00 :00 total) by Center mouth daily for 4 days, THEN 4 tablets (20 mg total) daily for 30 days. predniSONE 2021- No Take [address] [facility] (DELTASONE) 12-26-25 tablets Luke s 5 MG tablet 00:00: 00:00 (25 mg Med ical 00 :00 total) by Center mouth daily for 4 days, THEN 4 tablets (20 mg total) daily for 30 days. predniSONE 2021- Yes Take [address] [facility] (DELTASONE) 12-26-12 tablets Luke s 5 MG tablet 00:00: [...] daily Center IVPB for 7 days. DAPTOmycin 2022-0 2022- No 800mg Q24H Inject [address] [facility] (CUBICIN) 8- 08-16 mg [facility] in sodium 00:00: 23:59 intravenou M edical chloride 00 :00 sly daily Center (NS) for 7 NON-DEHP 50 days. ML IVPB ertapenem 2021-0 2022- No 1g Q24H Inject [address] (INVanz) 1 12-26-16 intravenou Jessica kes g in NS 100 00:00: 23:59 sly daily Medical mL (V2B) 00 :00 for 7 Center IVPB days. mICAFUNGin 2021-0 2022- No 100mg Q24H Inject [address] [facility] [address] 100 mg in 12-26 08-16 mg [facility] NS 0.9% 100 00:00: 23:59 intravenou Medical mL (V2B) 00 :00 sly daily Center IVPB for 7 days. DAPTOmycin 2021-0 2022- No 800mg Q24H Inject [address] (CUBICIN) 12-26 08-16 mg [facility] in sodium 00:00: 23:59 intravenou M edical chloride 00 :00 sly daily Center (NS) for 7 NON-DEHP 50 days. ML IVPB ertapenem 2021-0 2022- No 1g Q24H Inject [address] (INVanz) 1 12-26-16 intravenou Jessica kes g in NS 100 00:00: 23:59 sly daily Medical mL (V2B) 00 :00 for 7 Center IVPB days. mICAFUNGin 2021-0 2022- No 100mg Q24H Inject [address] [address] 100 mg in 12-26 08-16 mg [facility] NS 0.9% 100 00:00: 23:59 intravenou Medical mL (V2B) 00 :00 sly daily Center IVPB for 7 days. predniSONE 2021-0 202- No 25mg QD Take [address] [facility] (DELTASONE) 12-26-08 tablets Luke s 5 MG tablet 00:00: 00:00 (25 mg Med ical 00 :00 total) by Center mouth daily for 30 days. predniSONE 2021-0 2022- No 25mg QD Take [address] [facility] (DELTASONE) 12-26-08 tablets Luke s 5 MG tablet 00:00: 00:00 (25 mg Med ical 00 :00 total) by Center mouth daily for 30 days. predniSONE 2021- No 25mg QD Take [address] [facility] (DELTASONE) 12-26-08 tablets Luke s 5 MG tablet 00:00: 00:00 (25 mg Med ical 00 :00 total) by Center mouth daily for 30 days. risperiDONE Yes .5mg QD Take 0.[address] (RisperDAL) 8-08 mg by [facility] 0.5 MG 23:36: mouth Medical tablet 04 daily. Center metFORMIN Yes 500mg Take [address] [facility] (GLUCOPHAGE 8-08 mg by [facility] ) 500 MG 23:36: mouth 2 Medica l tablet 04 (two) Center times daily with breakfast and dinner. traZODone Yes 100mg QD Take [address] (DESYREL) 8-08 mg by [facility] 100 MG 23:36: mouth Medical tablet 04 nightly. [place] enoxaparin Yes 40mg QD Inject [address] (LOVENOX) 8-08 mg [facility] 40 mg/0.4 23:36: subcutaneo Me dical mL Syrg 04 usly Center daily. predniSONE 2021-2021- No 50mg QD Take [address] [facility] (DELTASONE) 12-25 by mouth Jody es 50 MG 16:30: 00:00 daily. Medical tablet 18 :00 [place] predniSONE 2021-0 2- No 50mg QD Take [address] [facility] (DELTASONE) 12-25- by mouth Jody es 50 MG 16:30: 00:00 daily. Medical tablet 18 :00 Center predniSONE 2021-0 2- No 50mg QD Take [address] (DELTASONE) 12-25-08 by mouth Jody es 50 MG 16:30: 00:00 daily. Medical tablet 18 :00 [place] HYDROcodone Yes 1{tbl} Take [address] -acetaminop 8-08 tablet by Jody es hen (NORCO 00:00: mouth Medica l 5-325) 00 every 6 Center 5-325 mg (six) per tablet hours as needed for Pain for up to 10 doses. Max Daily Amount: 4 tablets HYDROcodone 2021- No 1{tbl} Take [address] -acetaminop -12 27- tablet by Jessica mehta (NORCO 00:00: 00:00 mouth Medic al 5-325) 00 :00 every 6 Center 5-325 mg (six) per tablet hours as needed for Pain for up to 10 doses. Max Daily Amount: 4 tablets HYDROcodone 2021- No 1{tbl} Take [address] -acetaminop 12-25 tablet by Jessica mehta (NORCO 00:00: 00:00 mouth Medic al 5-325) 00 :00 every 6 Center 5-325 mg (six) per tablet hours as needed for Pain for up to 10 doses. Max Daily Amount: 4 tablets sulfamethox Yes 160mg{t Q.[id number] Take [address] [address] azole-trime 5-25 rimetho [id number] tablet [facility] thoprim 00:00: prim} 3W (160 mg of Med ical (BACTRIM 00 trimethopr Cente r DS) 800-160 im total) mg per by mouth 3 tablet (three) times a week SAT/ I. sulfamethox 2021- No 160mg{t Q.[id number] Take [address] [facility] [address] azole-trime 5-25 09-25 rimetho [id number] tablet [facility] thoprim 00:00: 00:00 prim} 3W (160 mg of Me dical (BACTRIM 00 :00 trimethopr Cente r DS) 800-160 im total) mg per by mouth 3 tablet (three) times a week I. sulfamethox 2021- No 160mg{t Q.[id number] Take [address] azole-trime 5-25 09-25 rimetho [id number] tablet [facility] thoprim 00:00: 00:00 prim} 3W (160 mg of Me dical (BACTRIM 00 :00 trimethopr Cente r DS) 800-160 im total) mg per by mouth 3 tablet (three) times a week I. levoFLOXaci 2021- No 750mg QD Take [address] n 5-24 08 tablet [facility] (LEVAQUIN) 00:00: 00:00 (750 mg Med ical 750 MG 00 :00 total) by Center tablet mouth daily. metroNIDAZO 2022-0 2022- No 500mg Q.[id number] Take [address] [facility] [address] LE (FLAGYL) 10-10 [id number] tablet [facility] 500 MG 00:00: 00:00 3D (500 mg Medical tablet 00 :00 total) by Center mouth 3 (three) times daily. levoFLOXaci 2022-0 2022- No 750mg QD Take [address] n 10-10 tablet [facility] (LEVAQUIN) 00:00: 00:00 (750 mg Med ical 750 MG 00 :00 total) by Center tablet mouth daily. metroNIDAZO 2-0 2022- No 500mg Q.[id number] Take [address] [facility] [address] LE (FLAGYL) 10-10 [id number] tablet [facility] 500 MG 00:00: 00:00 3D (500 mg Medical tablet 00 :00 total) by Center mouth 3 (three) times daily. levoFLOXaci 2021-0 2022- No 750mg QD Take [address] n 10-10 tablet [facility] (LEVAQUIN) 00:00: 00:00 (750 mg Med ical 750 MG 00 :00 total) by Center tablet mouth daily. metroNIDAZO 2-0 2- No 500mg Q.[id number] Take [address] [facility] LE (FLAGYL) 10-10 [id number] tablet [facility] 500 MG 00:00: 00:00 3D (500 mg Medical tablet 00 :00 total) by Center mouth 3 (three) times daily. predniSONE 2022-0 2022- No 50mg QD Take [address] [facility] [address] (DELTASONE) 10-10-23 tablet (50 L ukes 50 MG 00:00: 23:59 mg total) Medica l tablet 00 :00 by mouth Center daily for 30 days. predniSONE 2022-0 2022- No 50mg QD Take [address] [facility] (DELTASONE) 10-10-23 tablet (50 L ukes 50 MG 00:00: 23:59 mg total) Medica l tablet 00 :00 by mouth Center daily for 30 days. predniSONE 2022-0 2022- No 50mg QD Take [address] [facility] (DELTASONE) 10-10- tablet (50 L ukes 50 MG 00:00: 23:59 mg total) Medica l tablet 00 :00 by mouth Center daily for 30 days. methocarbam 2022-0 2022- No 1000mg Q.25D Take [address] [facility] 10-10- [facility] (ROBAXIN) 00:00: 23:59 (1,000 mg Me dical 500 MG 00 :00 total) by Center tablet mouth 4 (four) times daily for 10 days. LORazepam 2022-0 2022- No .5mg [facility]ATIVAN[facility] 10-10- [facility] 0.5 MG 00:00: 23:59 (0.5 mg Medical tablet 00 :00 total) by Center mouth 2 (two) times daily as needed for Anxiety for up to 10 days. Max Daily Amount: 1 mg morphine 2022-0 2- No 15mg Take [address] [facility] (MSIR) 15 10-10- tablet (15 Jody es MG tablet 00:00: 23:59 mg total) Me dical 00 :00 by mouth Center every 4 (four) hours as needed for up to 10 days. Max Daily Amount: 90 mg methocarbam 2022-0 2- No 1000mg Q.25D Take [address] [facility] 10-10- tablets [facility] (ROBAXIN) 00:00: 23:59 (1,000 mg Me dical 500 MG 00 :00 total) by Center tablet mouth 4 (four) times daily for 10 days. LORazepam 2022-0 2022- No .5mg [facility]ATIV[facility] 10-10- [facility] 0.5 MG 00:00: 23:59 (0.5 mg Medical tablet 00 :00 total) by Center mouth 2 (two) times daily as needed for Anxiety for up to 10 days. Max Daily Amount: 1 mg morphine 2022-0 2022- No 15mg Take [address] [facility] (MSIR) 15 10-10-03 tablet (15 Jody es MG tablet 00:00: 23:59 mg total) Me dical 00 :00 by mouth Center every 4 (four) hours as needed for up to 10 days. Max Daily Amount: 90 mg morphine 2022-0 2022- No 15mg Take [address] [facility] (MSIR) 15 10-10- tablet (15 Jody es MG tablet 00:00: 23:59 mg total) Me dical 00 :00 by mouth Center every 4 (four) hours as needed for up to 10 days. Max Daily Amount: 90 mg methocarbam 2021- No 1000mg Q.25D Take [...] 10 days. Max Daily Amount: 1 mg sulfamethox 2021- No 160mg{t Q.[id number] Take [address] [facility] azole-trime 09-25 rimetho [id number] tablet [facility] thoprim 00:00: 00:00 prim} 3W (160 mg of Me dical (BACTRIM 00 :00 trimethopr Cente r DS) 800-160 im total) mg per by mouth 3 tablet (three) times a week SAT/SAT/ I. sulfamethox 2021- No 160mg{t Q.[id number] Take [address] [facility] azole-trime 09-25 rimetho [id number] tablet [facility] thoprim 00:00: 00:00 prim} 3W (160 mg of Me dical (BACTRIM 00 :00 trimethopr Cente r DS) 800-160 im total) mg per by mouth 3 tablet (three) times a week SAT/SAT/ I. sulfamethox 2021- No 160mg{t Q.[id number] Take [address] [facility] azole-trime 09-25 rimetho [id number] tablet [facility] thoprim 00:00: 00:00 prim} 3W (160 mg of Me dical (BACTRIM 00 :00 trimethopr Cente r DS) 800-160 im total) mg per by mouth 3 tablet (three) times a week SAT/SAT/ I. pantoprazol Yes 40mg QD Take [address] [facility] e 5-07 tablet (40 [facility] (PROTONIX) 00:00: mg total) Me dical 40 MG 00 by mouth Center tablet daily. sertraline 2022- No 50mg QD Take [address] [facility] (ZOLOFT) 50 - 05-07 tablet (50 L ukes MG tablet 00:00: 23:59 mg total) Me dical 00 :00 by mouth Center daily. pantoprazol 2021- No 40mg QD Take [address] [facility] e 5- 10-24 tablet (40 [facility] (PROTONIX) 00:00: 00:00 mg total) M edical 40 MG 00 :00 by mouth Center tablet daily. sertraline 2021- No 50mg QD Take [address] [facility] (ZOLOFT) 50 - 10-24 tablet (50 L ukes MG tablet 00:00: 00:00 mg total) Me dical 00 :00 by mouth Center daily. pantoprazol 2021- No 40mg QD Take [address] [facility] e 5- 10-24 tablet (40 [facility] (PROTONIX) 00:00: 00:00 mg total) M edical 40 MG 00 :00 by mouth Center tablet daily. sertraline 2021- No 50mg QD Take [address] [facility] (ZOLOFT) 50 - 10-24 tablet (50 L ukes MG tablet 00:00: 00:00 mg total) Me dical 00 :00 by mouth Center daily. predniSONE 2021-2021- No 80mg QD Take [address] [facility] (DELTASONE) 5- 05-24 tablets Luke s 20 MG 00:00: 00:00 (80 mg Medical tablet 00 :00 total) by Center mouth daily for 10 days. furosemide 2021-2021- No 40mg QD Take [address] [facility] (LASIX) 40 5- 05-24 tablet (40 Jessica kes MG tablet 00:00: 00:00 mg total) Me dical 00 :00 by mouth Center daily. insulin NPH 2021- No Use as [facility] (HumuLIN N) 09-23 directed. Jessica kes 100 unit/mL 00:00: 00:00 Medic al injection 00 :00 Center predniSONE 2021-0 2- No 80mg QD Take [address] [facility] (DELTASONE) 09-23-24 tablets Luke s 20 MG 00:00: 00:00 (80 mg Medical tablet 00 :00 total) by Center mouth daily for 10 days. furosemide 2021-0 2021- No 40mg QD Take [address] [facility] (LASIX) 40 09-23- tablet (40 Jessica kes MG tablet 00:00: 00:00 mg total) Me dical 00 :00 by mouth Center daily. insulin NPH 2021-2021- No Use as [facility] (HumuLIN N) 09-23 directed. Jessica kes 100 unit/mL 00:00: 00:00 Medic al injection 00 :00 [place] predniSONE 2021-0 2021- No 80mg QD Take [address] [facility] (DELTASONE) 09-23 tablets Luke s 20 MG 00:00: 00:00 (80 mg Medical tablet 00 :00 total) by Center mouth daily for 10 days. furosemide 2021-0 2021- No 40mg QD Take [address] [facility] (LASIX) 40 09-23- tablet (40 Jessica kes MG tablet 00:00: 00:00 mg total) Me dical 00 :00 by mouth Center daily. insulin NPH 2021-2021- No Use as [facility] (HumuLIN N) 09-23 directed. Jessica kes 100 unit/mL 00:00: 00:00 Medic al injection 00 :00 [place] predniSONE 2021-0 2021- No 5mg QD Take [address] (DELTASONE) 09-22 by mouth Jody es 5 MG tablet 16:07: 00:00 daily. Med ical 21 :00 [place] CARVEDILOL 2021-2021- No Take by [facility] ORAL 09-22- mouth. [facility] 16:07: 00:00 Medical 21 :00 [place] tramadol 2021-2021- No [facility] by [facility] HCl 09-22- mouth. [facility] (TRAMADOL 16:07: 00:00 Medical ORAL) 21 :00 [place] predniSONE 2021- No 5mg QD Take [address] (DELTASONE) 09-22-06 by mouth Jody es 5 MG tablet 16:07: 00:00 daily. Med ical 21 :00 Center CARVEDILOL 2021- No Take by [facility] ORAL 09-22 05-06 mouth. [facility] 16:07: 00:00 Medical 21 :00 Center tramadol 2021- No Take by [facility] HCl 09-22-06 mouth. [facility] (TRAMADOL 16:07: 00:00 Medical ORAL) 21 :00 [place] predniSONE 2021- No 5mg QD Take [address] (DELTASONE) 09-22-06 by mouth Jody es 5 MG tablet 16:07: 00:00 daily. Med ical 21 :00 [place] CARVEDILOL 2021- No Take by [facility] ORAL 09-22 05-06 mouth. [facility] 16:07: 00:00 Medical 21 :00 [place] tramadol 2021- No Take by [facility] HCl 09-22-06 mouth. [facility] (TRAMADOL 16:07: 00:00 Medical ORAL) 21 :00 [place] calcium 2022- No 2{tbl} Q.[id number] Take [address] [facility] carbonate-v 09-22 [id number] tablets by Jarad itamin D3 00:00: 23:59 3D mouth 3 Medi doreen (OSCAL-D) 00 :00 (three) Center 500 times mg(1,250mg) daily. -200 unit per tablet cholestyram 2022- No 1{packe Q.5D Take [address] [facility] ine 09-22 05-06 t} packet by Jarad (QUESTRAN) 00:00: 23:59 mouth 2 Med ical 4 gram PwPk 00 :00 (two) Center packet times daily. clotrimazol 2022- No Q.5D Apply [facility] e 09-22 05-06 topically [facility] (LOTRIMIN) 00:00: 23:59 2 (two) Med ical 1 % cream 00 :00 times Center daily. gabapentin 2022- No 400mg Q.[id number] Take [address] [facility] (NEURONTIN) 09-22- [id number] capsule [facility] 400 MG 00:00: 23:59 3D [...] tablet (two) times daily. pancrelipas 2022- No [id number]{ Take [address] [facility] e, 09-22- lipase} capsules [facility] Lip-Prot-Am 00:00: 23:59 (72,000 Me dical yl, (CREON) 00 :00 units of Cent er 24,000-76,0 lipase 00 -120,000 total) by unit CpDR mouth 3 capsule (three) times daily with meals. calcium 2022- No 2{tbl} Q.[id number] Take [address] [facility] carbonate-v 09-22- [id number] tablets by [facility] itamin D3 00:00: 23:59 3D mouth 3 Medi doreen (OSCAL-D) 00 :00 (three) Center 500 times mg(1,250mg) daily. -200 unit per tablet pancrelip[place] [id number]{ Take [address] [facility] e, 09-22 05-06 lipase} capsules [facility] Lip-Prot-Am 00:00: 23:59 (72,000 Me dical yl, (CREON) 00 :00 units of Cent er 24,000-76,0 lipase 00 -120,000 total) by unit CpDR mouth 3 capsule (three) times daily with meals. calcium 2022- No 2{tbl} Q.[id number] Take [address] [facility] carbonate-v 09-22- [id number] tablets by [facility] itamin D3 00:00: 23:59 3D mouth 3 Medi doreen (OSCAL-D) 00 :00 (three) Center 500 times mg(1,250mg) daily. -200 unit per tablet pancrelipas 2022- No [id number]{ Take [address] [facility] e, 09-22 lipase} [...] needed for up to 360 days. acetaminoph 2022- No 650mg Take [address] [facility] en 09-22 tablets [facility] (TYLENOL) 00:00: 23:59 (650 mg Medi doreen 325 MG 00 :00 total) by Center tablet mouth every 6 (six) hours as needed for up to 360 days. acetaminoph 2022- No 650mg Take [address] [facility] en 09-22 tablets [facility] (TYLENOL) 00:00: 23:59 (650 mg Medi doreen 325 MG 00 :00 total) by Center tablet mouth every 6 (six) hours as needed for up to 360 days. gabapentin 2021- No 400mg Q.[id number] Take [address] [facility] (NEURONTIN) 09-22 [id number] capsule [facility] 400 MG 00:00: 00:00 3D (400 mg Medical capsule 00 :00 total) by Center mouth 3 (three) times daily. hydrOXYchlo 2021- No 200mg Q.5D Take [address] roQUINE 09-22 tablet [facility] (PLAQUENIL) 00:00: 00:00 (200 mg Me dical 200 mg 00 :00 total) by Center tablet mouth 2 (two) times daily. metoprolol 2021- No 25mg Q.5D Take [address] [facility] tartrate 09-22 tablet (25 [facility] (LOPRESSOR) 00:00: 00:00 mg total) Medical 25 MG 00 :00 by mouth 2 Center tablet (two) times daily. gabapentin 2021- No 400mg Q.[id number] Take [address] [facility] (NEURONTIN) 09-22 [id number] capsule [facility] 400 MG 00:00: 00:00 3D (400 mg Medical capsule 00 :00 total) by Center mouth 3 (three) times daily. hydrOXYchlo 2021- No 200mg Q.5D Take [address] roQUINE 09-22 tablet [facility] (PLAQUENIL) 00:00: 00:00 (200 mg Me dical 200 mg 00 :00 total) by Center tablet mouth 2 (two) times daily. metoprolol 2021- No 25mg Q.5D Take [address] [facility] tartrate 09-22 tablet (25 [facility] (LOPRESSOR) 00:00: 00:00 mg total) Medical 25 MG 00 :00 by mouth 2 Center tablet (two) times daily. cholestyram 2021- No 1{packe Q.5D Take [address] [facility] ine - 09-25 t} packet by [facility] (QUESTRAN) 00:00: 00:00 mouth 2 Med ical 4 gram PwPk 00 :00 (two) Center packet times daily. clotrimazol 2021- No Q.5D Apply [facility] e 09-22-25 topically [facility] (LOTRIMIN) 00:00: 00:00 2 (two) Med ical 1 % cream 00 :00 times Center daily. cholestyram 2021- No 1{packe Q.5D Take [address] [facility] ine - 09-25 t} packet by [facility] (QUESTRAN) 00:00: 00:00 mouth 2 Med ical 4 gram PwPk 00 :00 (two) Center packet times daily. clotrimazol 2021- No Q.5D Apply [facility] e 5- 09-25 topically [facility] (LOTRIMIN) 00:00: 00:00 2 (two) Med ical 1 % cream 00 :00 times Center daily. morphine 2021- No 15mg Take [address] [facility] (MS CONTIN) 09-22 tablet (15 L ukes 15 MG 12 hr 00:00: 23:59 mg total) Medical tablet 00 :00 by mouth Center every 8 (eight) hours for 30 days. Max Daily Amount: 45 mg morphine 2021-2021- No 15mg Take [address] [facility] (MS CONTIN) 09-22 tablet (15 L ukes 15 MG 12 hr 00:00: 23:59 mg total) Medical tablet 00 :00 by mouth Center every 8 (eight) hours for 30 days. Max Daily Amount: 45 mg morphine 2021-2021- No 15mg Take [address] [facility] (MS CONTIN) 09-22 tablet (15 L ukes 15 MG 12 hr 00:00: 23:59 mg total) Medical tablet 00 :00 by mouth Center every 8 (eight) hours for 30 days. Max Daily Amount: 45 mg insulin NPH 2021- No Use as [facility] (HumuLIN N) 09-22 directed. Jessica kes 100 unit/mL 00:00: 00:00 Medic al injection 00 :00 Center loperamide 2021- No 4mg Q.[id number] Take [address] [facility] (IMODIUM) 2 09-22 [id number] capsules [facility] mg capsule 00:00: 00:00 3D [...] times daily for 10 days. insulin NPH Use as [facility] (HumuLIN N) 09-22 directed. Jessica kes 100 unit/mL 00:00: 00:00 Medic al injection 00 :00 Center loperamide 2021- No 4mg Q.[id number] Take [address] [facility] (IMODIUM) 2 09-22 [id number] capsules [facility] mg capsule 00:00: 00:00 3D [...] times daily for 10 days. insulin NPH Use as [facility] (HumuLIN N) 09-22 directed. Jessica kes 100 unit/mL 00:00: 00:00 Medic al injection 00 :00 Center loperamide 2021- No 4mg Q.[id number] Take [address] [facility] (IMODIUM) 2 09-22 [id number] capsules [facility] mg capsule 00:00: 00:00 3D [...] Name Observation Time Observation Value Comments Source Systolic blood 2022-03-14 23:00:00 176 mm[Hg] Univer sity of pressure [facility] Diastolic blood 2022-03-14 23:00:00 124 mm[Hg] Unive rsity of [facility] Heart rate 2022-03-14 23:00:00 108 /[facility] Oxygen saturation in 2022-03-14 23:00:00 99 /min [facility] Arterial blood by [facility] Pulse oximetry Branch Respiratory rate 2022-03-14 22:00:00 20 /min [facility] Body temperature 2022-03-14 18:22:00 37.5 Lori [facility] Body height 2022-03-14 18:22:00 172.7 cm Universi ty [facility] Body weight 2022-03-14 18:22:00 99.791 kg [facility] BMI 2022-03-14 18:22:00 33.45 kg/m2 [facility] HEIGHT 2022-03-08 19:00:00 172.7 cm WEIGHT 2022-03-08 [...] kg Systolic blood 2022-03-12 11:02:00 175 mm[Hg] [facility] Diastolic blood 2022-03-12 11:02:00 120 mm[Hg] [facility] Heart rate 2022-03-12 11:02:00 75 /min [facility] Body temperature 2022-03-12 11:02:00 36.78 Lori [facility] Respiratory rate 2022-03-12 11:02:00 18 /min [facility] Oxygen saturation in 2022-03-12 11:02:00 97 /min [facility] Arterial blood by Medical Ce nter Pulse oximetry Body height 2022-03-08 19:00:00 172.7 cm [facility] Body weight 2022-03-08 19:00:00 99.428 kg [facility] BMI 2022-03-08 19:00:00 33.33 kg/m2 [facility] Systolic blood 2021-12-25 15:25:00 123 mm[Hg] [facility] Diastolic blood 2021-12-25 15:25:00 76 mm[Hg] [facility] Heart rate 2021-12-25 15:25:00 103 /min [facility] Body temperature 2021-12-25 15:25:00 36.78 Lori [facility] Respiratory rate 2021-12-25 15:25:00 18 /min [facility] Oxygen saturation in 2021-12-25 15:25:00 95 /min [facility] Arterial blood by Medical Ce nter Pulse oximetry Body height 2021-12-07 12:30:00 172.7 cm [facility] Body weight 2021-12-07 12:30:00 95.255 kg [facility] BMI 2021-12-07 12:30:00 31.93 kg/m2 [facility] Procedures Procedure Date / Time Performing Clinician Source Performed LACTIC ACID WHOLE BLOOD 2022-03-14 [facility] 22:10:00 [facility] URINALYSIS 2022-03-14 [facility] 20:43:[address] ABDOMEN PELVIS W CONTRAST 2022[facility]03[facility] 20:28:55 [facility] LACTIC ACID WHOLE BLOOD 2022-03-14 [facility] 19:56:00 Medical Branch LIPASE 2022-03-14 [facility] 19:55:00 [facility] Branch COMP. METABOLIC PANEL 2022-03-14 [id number] 19:55:00 [facility] Branch CBC WITH DIFF 2022-03-14 [facility] NOTICE OF PRIVACY PRACTICES 2022-03-14 Doctor Unassigned, U [facility] 18:09:38 [place] [facility] CBC (HEMOGRAM ONLY) 2022-03-12 [address] [facility] 05:05:00 [facility] BASIC METABOLIC PANEL 2022-03-12 Alex Hernández Yolanda [facility] 05:05:[address] [facility] [address] ABDOMEN/PELVIS WITH IV 2022-03-11 Alex Hernández Yolanda [facility] CONTRAST 00:26:00 [facility] CBC W/PLT COUNT & AUTO 2022-03-10 Evangelist, Sil[facility]io [facility]if [facility] DIFFERENTIAL 04:22:00 [facility] BASIC METABOLIC PANEL 2022-03-10 Evangelist, Ahmed Nas[facility] 04:22:00 [facility] CBC W/PLT COUNT & AUTO 2022-03-10 Evangelist, Silvio [facility]keonif [facility] DIFFERENTIAL 04:22:00 [facility] XR CHEST 1 VIEW PORTABLE / 2022-03-[address] [facility] BEDSIDE 15:10:[address] [facility] [address] ABDOMEN/PELVIS WITH IV 2022-03-[address] [facility] CONTRAST 08:41:00 [facility] [place] ASPIRATION OR INJECTION 2022-02-27 [facility]isdmo [facility] 15:05:00 [facility] MR LOWER EXTREMITY JOINT 2022-02-[address] [facility] ONLY WITHOUT IV CONTRAST 14:00:00 [facility] LEFT XR HIP 2 VIEWS BILATERAL 2022-02-24 [facility] 08:03:00 [facility] COMPLEMENT COMPONENT C4 2022-02-11 Maganti, Lynette [facility] 12:36:00 [facility] DOUBLE-STRANDED DNA (DSDNA) 2022-02-11 Maganti, Lynette [facility] ANTIBODY 12:36:00 [facility] MAGNESIUM 2022-02-11 Aribindjennifer, Demetris [facility] 04:08:00 [facility] PHOSPHORUS 2022-02-11 Aribindi, Demetris [facility] 04:08:00 [facility] CBC W/PLT COUNT & AUTO 2022-02-11 Eli, Irina [facility] kes DIFFERENTIAL 04:08:00 [facility] BASIC METABOLIC PANEL 2022-02-11 Eli, Irina [facility] 04:08:00 [facility] CBC W/PLT COUNT & AUTO 2022-02-11 Eli, Irina [facility] kes DIFFERENTIAL 04:08:00 [facility] CBC W/PLT COUNT & AUTO 2022-02-10 Eli, Irina [facility] kes DIFFERENTIAL 05:06:00 [facility] BASIC METABOLIC PANEL 2022-02-10 Eli, Irian [facility] 05:06:00 [facility] CBC W/PLT COUNT & AUTO 2022-02-10 Eli, Irina [facility] kes DIFFERENTIAL 05:06:00 [facility] MAGNESIUM 2022-02-09 Aribindi, Demetris [facility] 03:57:00 [facility] PHOSPHORUS 2022-02-09 Aribindi, Demetris [facility] 03:57:00 [facility] CBC W/PLT COUNT & AUTO 2022-02-09 Eli, Irina [facility] kes DIFFERENTIAL 03:57:00 [facility] BASIC METABOLIC PANEL 2022-02-09 Eli, Irina [facility] 03:57:00 [facility] CBC W/PLT COUNT & AUTO 2022-02-09 Eli, Irina [facility] kes DIFFERENTIAL 03:57:00 [facility] CBC W/PLT COUNT & AUTO [address] [facility] kes DIFFERENTIAL 09:54:00 [facility] BASIC METABOLIC PANEL [address] [facility] 09:54:00 [facility] MAGNESIUM [address] [facility] 09:54:00 [facility] PHOSPHORUS [address] [facility] 09:54:00 [facility] CBC W/PLT COUNT & AUTO [address] Jessica kes DIFFERENTIAL 09:54:00 [facility] FUNGUS CULTURE + SMEAR 2022-02-[address] [facility] [facility] kes 14:34:00 [facility] SURGICALLY OBTAINED CULTURE 2022-02-[address] [facility] + GRAM STAIN 14:34:00 [facility] ANAEROBIC CULTURE 2022-02-[address] [facility] 14:34:00 [facility] AFB CULTURE + SMEAR 2022-02-[address] [facility] (NON-SPUTUM) 14:34:00 [facility] SPIN/CONCENTRATION CHARGE 2022-02-[address] [facility] 14:34:00 [facility] ANESTHESIA PERIPHERAL BLOCK 2022-02-07 Jennings, Christopher [facility] 13:15:39 [facility] ANESTHESIA PERIPHERAL BLOCK 2022-02-07 Hallie, Christopher [facility] 13:13:20 [facility] LAPAROTOMY, EXPLORATORY 2022-02-[address] [facility] 12:47:00 [facility] BASIC METABOLIC PANEL 2022-02-07 Chivo, Demetris [facility] 03:34:00 [facility] MAGNESIUM 2022-02-07 Orlyjennifer, Demetris [facility] 03:34:00 [facility] PHOSPHORUS 2022-02-07 Aribindi, Demetris [facility] 03:34:00 [facility] CBC W/PLT COUNT & AUTO 2022-02-07 Marcmartha, Demetris [facility] kes DIFFERENTIAL 03:34:00 [facility] PROTHROMBIN TIME/INR 2022-02-[address] [facility] 03:34:00 [facility] CBC W/PLT COUNT & AUTO 2022-02-[address] [facility] DIFFERENTIAL 03:34:00 [facility] SARS-COV2/RT-PCR (HS & REF 2022-02-06 Gonz[address] [facility] LABS) 20:08:00 [facility] TYPE AND SCREEN, AUTOMATED 2022-02-[address] [facility] 20:08:00 [facility] XR CHEST 1 VIEW PORTABLE / 2022-02-[address] [facility] BEDSIDE 18:34:[address] [facility] CT ABDOMEN/PELVIS WITH IV 2022-02-[address] [facility] CONTRAST 11:11:00 [facility] CBC W/PLT COUNT & AUTO 2022-02-[address] [facility] DIFFERENTIAL 04:05:00 [facility] BASIC METABOLIC PANEL 2022-02-05 [facility] 04:05:00 [facility] MAGNESIUM 2022-02-[address] [facility] 04:05:00 [facility] PHOSPHORUS 2022-02-[address] [facility] 04:05:00 [facility] CBC W/PLT COUNT & AUTO 2022-02-[address] [facility] DIFFERENTIAL 04:05:00 [facility] POCT-GLUCOSE METER 2022-02-[address] [facility] 07:24:00 [facility] CBC W/PLT COUNT & AUTO 2022-02-[address] [facility] DIFFERENTIAL 04:22:00 [facility] BASIC METABOLIC PANEL 2022-02-[address] [facility] kes 04:22:00 [facility] PHOSPHORUS 2022-02-03 Frantz Sánchez [facility] 04:22:00 [facility] CBC W/PLT COUNT & AUTO 2022-02-[address] [facility] DIFFERENTIAL 04:22:00 [facility] POCT-GLUCOSE METER 2022-02-[address] [facility] 18:06:00 [facility] REPORT OF PROCEDURE - 2022-02-02 Willard, Shawn [facility] ENDOSCOPY URL 12:46:22 [facility] [place] FLUORO NON-SPECIFIC UP TO 2022-02-02 Willard, Shawn [facility] 1 HOUR 12:15:00 [facility] ESOPHAGOSCOPY, WITH 2022-02-02 Willard, Shawn [facility] ENDOSCOPIC ULTRASOUND 11:27:00 [facility] nter PROCEDURE W/ C-ARM 2022-02-02 Willard, Shawn [facility] 11:27:00 [facility] CBC W/PLT COUNT & AUTO 2022-02-[address] [facility] DIFFERENTIAL 04:41:00 [facility] BASIC METABOLIC PANEL 2022-02-[address] [facility] kes 04:41:00 [facility] PHOSPHORUS 2022-02-[address] [facility] 04:41:00 [facility] PROTHROMBIN TIME/INR 2022-02-[address] [facility] 04:41:00 [facility] CBC W/PLT COUNT & AUTO 2022-02-[address] [facility] DIFFERENTIAL 04:41:00 [facility] SARS-COV2/RT-PCR (HS & REF 2022-02-01 Aribindi, Demetris [facility] LABS) 08:33:00 [facility] CBC W/PLT COUNT & AUTO 2022-02-[address] [facility] DIFFERENTIAL 05:24:00 [facility] BASIC METABOLIC PANEL 2022-02-[address] [facility] kes 05:24:00 [facility] PHOSPHORUS 2022-02-[address] [facility] 05:24:00 [facility] PROTHROMBIN TIME/INR 2022-02-[address] [facility] 05:24:00 [facility] CBC W/PLT COUNT & AUTO 2022-02-[address] [facility] DIFFERENTIAL 05:24:00 [facility] CBC W/PLT COUNT & AUTO 2022-01-[address] [facility] DIFFERENTIAL 05:51:00 [facility] BASIC METABOLIC PANEL 2022-01-[address] [facility] kes 05:51:00 [facility] PHOSPHORUS 2022-01-[address] [facility] 05:51:00 [facility] CBC W/PLT COUNT & AUTO 2022-01-[address] [facility] DIFFERENTIAL 05:51:[address] [facility] [address] ABDOMEN/PELVIS WITH IV 2022-01-[address] [facility] CONTRAST 20:16:00 [facility] CBC W/PLT COUNT & AUTO 2022-01-[address] [facility] DIFFERENTIAL 06:07:00 [facility] BASIC METABOLIC PANEL 2022-01-[address] [facility] 06:07:00 [facility] PHOSPHORUS 2022-01-[address] [facility] 06:07:00 [facility] CBC W/PLT COUNT & AUTO 2022-01-[address] [facility] DIFFERENTIAL 06:07:00 [facility] CBC W/PLT COUNT & AUTO 2022-01-[address] [facility] DIFFERENTIAL 04:24:00 [facility] BASIC METABOLIC PANEL 2022-01-29 Ali, Calrinea Ned [facility] 04:24:00 [facility] PHOSPHORUS 2022-01-29 Ali, Hiba Ned [facility] 04:24:00 [facility] [facility] CBC W/PLT COUNT & AUTO 2022-01-29 Ali, Carlinea Ned [facility] DIFFERENTIAL 04:24:00 [facility] CBC W/PLT COUNT & AUTO 2022-01-[address] [facility] DIFFERENTIAL 14:51:00 [facility] BASIC METABOLIC PANEL 2022-01-28 Ali, Keron Cullenr [facility] 14:51:00 [facility] PHOSPHORUS 2022-01-28 Ali, Carlinea Ned [facility] 14:51:00 [facility] CBC W/PLT COUNT & AUTO 2022-01-[address] [facility] DIFFERENTIAL 14:51:00 [facility] COMPREHENSIVE METABOLIC 2022-01-27 Nalam, Nilsa Gladys [facility] PANEL 05:23:00 [facility] MAGNESIUM 2022-01-27 Nalam, Nilsa Gladys [facility] 05:23:00 [facility] CBC W/PLT COUNT & AUTO 2022-01-27 Nalam, Nilsa Gladys [facility] DIFFERENTIAL 05:23:00 [facility] PHOSPHORUS 2022-01-[address] [facility] 05:23:00 [facility] CBC W/PLT COUNT & AUTO 2022-01-27 Nalam, Nilsa Gladys [facility] DIFFERENTIAL 05:23:00 [facility] SARS-COV2/RT-PCR ([facility] & REF 2022-01-[address] [facility] LABS) 19:44:00 [facility] XR KNEE 3 VIEWS RIGHT 2022-01-[address] [facility] [facility] 12:47:00 [facility] COMPLEMENT COMPONENT C3 2022-01-26 Nalam, Nilsa Gladys [facility] 04:38:00 [facility] DOUBLE-STRANDED DNA (DSDNA) 2022-01-26 Nalam, Nilsa Gladys [facility] ANTIBODY 04:38:00 [facility] COMPREHENSIVE METABOLIC 2022-01-26 Nalam, Nilsa Gladys [facility] PANEL 04:38:00 [facility] MAGNESIUM 2022-01-26 Nalam, Nilsa Gladys [facility] 04:38:00 [facility] CBC W/PLT COUNT & AUTO 2022-01-26 Nalam, Nilsa Gladys [facility] DIFFERENTIAL 04:38:00 [facility] PHOSPHORUS 2022-01-[address] [facility] 04:38:00 [facility] HEMOGLOBIN A1C 2022-01-26 Nalam, Nilsa Gladys [facility] 04:38:00 [facility] ANTI-DNA TITER 2022-01-26 Nalam, Nilsa Gladys [facility] 04:38:00 [facility] CBC W/PLT COUNT & AUTO 2022-01-26 Nalam, Nilsa Gladys [facility] DIFFERENTIAL 04:38:00 [facility] URINALYSIS W/ MICROSCOPIC 2022-01-25 Nalam, Nilsa Gladys [facility] 22:19:00 [facility] PROTHROMBIN TIME/INR 2022-01-25 Nalam, Nilsa Gladys [facility] 10:28:00 [facility] CBC W/PLT COUNT & AUTO 2022-01-[address] [facility] DIFFERENTIAL 06:40:00 [facility] BASIC METABOLIC PANEL 2022-01-25 [facility]elda [facility]teaga [facility] 06:40:00 [facility] PT/APTT 2022-01-[address] [facility] 06:40:00 [facility] LACTIC ACID, VENOUS 2022-01-[address] [facility] 06:40:00 [facility] HEPATIC FUNCTION PANEL 2022-01-25 Nalam, Nilsa Gladys [facility] 06:40:00 [facility] MAGNESIUM 2022-01-25 Nalam, Nilsa Gladys [facility] 06:40:00 [facility] PHOSPHORUS 2022-01-25 Nalam, Nilsa Gladys [facility] 06:40:00 [facility] TYPE AND SCREEN, AUTOMATED 2022-01-[address] [facility] 06:40:00 [facility] CBC W/PLT COUNT & AUTO 2022-01-[address] [facility] DIFFERENTIAL 06:40:00 [facility] EKG-SCANNED 2022-01-[address] [facility] 00:00:00 Scanning [facility] BASIC METABOLIC PANEL 2021-12-25 [facility] 04:08:00 [facility] CBC W/PLT COUNT & AUTO 2021-12-25 EdgarAlex Post [facility] DIFFERENTIAL 04:08:00 [facility] CBC W/PLT COUNT & AUTO 2021-12-25 Edgar, Alex Post [facility] DIFFERENTIAL 04:08:00 [facility] SARS-COV2/RT-PCR ([facility] & REF 2021-12-24 [facility], [facility] 16:21:00 [facility] BASIC METABOLIC PANEL 2021-12-24 [facility], [facility] 03:16:00 [facility] CBC W/PLT COUNT & AUTO 2021-12-24 EdgarAlex Post [facility] DIFFERENTIAL 03:16:00 [facility] CBC W/PLT COUNT & AUTO 2021-12-24 Edgar, Alex Post [facility] DIFFERENTIAL 03:16:00 [facility] BASIC METABOLIC PANEL 2021-12-23 [facility], [facility] 03:08:00 [facility] CBC W/PLT COUNT & AUTO 2021-12-23 EdgarAlex Post [facility] DIFFERENTIAL 03:08:00 [facility] CBC W/PLT COUNT & AUTO 2021-12-23 EdgarAlex Post [facility] DIFFERENTIAL 03:08:00 [facility] BASIC METABOLIC PANEL 2021-12-22 [facility], [facility] 03:56:00 [facility] CBC W/PLT COUNT & AUTO 2021-12-22 Edgar Alex Post [facility] DIFFERENTIAL 03:56:00 [facility] COMPLEMENT COMPONENT C4 2021-12-[address] [facility] 03:56:00 [facility] CBC W/PLT COUNT & AUTO 2021-12-22 Alex Hernández Post [facility] DIFFERENTIAL 03:56:00 [facility] BASIC METABOLIC PANEL 2021-12-21 Arif, Miker [facility] 05:21:00 [facility] CBC W/PLT COUNT & AUTO 2021-12-21 Edgar Alex Post [facility] DIFFERENTIAL 05:21:00 [facility] CBC W/PLT COUNT & AUTO 2021-12-21 Alex Hernández Post [facility] DIFFERENTIAL 05:21:00 [facility] CT ABDOMEN/PELVIS WITH IV 2021-12-20 Kaitlyn Manjagdeepashvin [facility] CONTRAST 06:25:00 [facility] BASIC METABOLIC PANEL 2021-12-20 Arif, [facility] 04:59:00 [facility] MAGNESIUM 2021-12-20 Arif, Sahar [facility] 04:59:00 [facility] CBC W/PLT COUNT & AUTO 2021-12-20 Alex Hernández Post [facility] DIFFERENTIAL 04:59:00 [facility] CBC W/PLT COUNT & AUTO 2021-12-20 Edgar, Alex Post [facility] DIFFERENTIAL 04:59:00 [facility] BASIC METABOLIC PANEL 2021-12-19 Arif, [facility] 04:42:00 [facility] MAGNESIUM 2021-12-19 Arif, Sahar [facility] 04:42:00 [facility] CBC W/PLT COUNT & AUTO 2021-12-19 Edgar, Alex Post [facility] DIFFERENTIAL 04:42:00 [facility] CBC W/PLT COUNT & AUTO 2021-12-19 EdgarAlex alvarez Post [facility] DIFFERENTIAL 04:42:00 [facility] BASIC METABOLIC PANEL 2021-12-18 Arif, Sahar [facility] 04:10:00 [facility] MAGNESIUM 2021-12-18 Arif, Sahar [facility] 04:10:00 [facility] CBC W/PLT COUNT & AUTO 2021-12-18 EdgarAlex Post [facility] DIFFERENTIAL 04:10:00 [facility] CBC W/PLT COUNT & AUTO 2021-12-18 Edgar, Alex Post [facility] DIFFERENTIAL 04:10:00 [facility] SARS-COV2/RT-PCR ([facility] & REF 2021-12-17 Ari, [facility] 13:09:00 [facility] BASIC METABOLIC PANEL 2021-12-17 Arif, Sahar [facility] 05:40:00 [facility] MAGNESIUM 2021-12-17 Arif, Sahar [facility] 05:40:00 [facility] CBC W/PLT COUNT & AUTO 2021-12-17 Alex Hernández Post [facility] DIFFERENTIAL 05:40:00 [facility] CREATINE KINASE (CK) 2021-12-17 Edgar Alex Post [facility] 05:40:00 [facility] CBC W/PLT COUNT & AUTO 2021-12-17 Alex Hernández Post [facility] DIFFERENTIAL 05:40:00 [facility] BASIC METABOLIC PANEL 2021-12-16 Arif, Miker [facility] 04:54:00 [facility] MAGNESIUM 2021-12-16 Arif, Sahar [facility] 04:54:00 [facility] HEPATIC FUNCTION PANEL 2021-12-16 Alex Hernández Post [facility] 04:54:00 [facility] CBC W/PLT COUNT & AUTO 2021-12-16 Alex Hernández Post [facility] DIFFERENTIAL 04:54:00 [facility] CBC W/PLT COUNT & AUTO 2021-12-16 Alex Hernández Post [facility] DIFFERENTIAL 04:54:00 [facility] MAGNESIUM 2021-12-15 Arif, Sahar [facility] 12:00:00 [facility] BASIC METABOLIC PANEL 2021-12-15 Arif, Miker [facility] 12:00:00 [facility] CBC (HEMOGRAM ONLY) 2021-12-15 Alex Hernández Post [facility] 12:00:00 [facility] XR CHEST 1 VIEW PORTABLE / 2021-12-[address] [facility] BEDSIDE 10:17:00 [facility] MAGNESIUM 2021-12-15 Arif, Sahar [facility] 05:49:00 [facility] CT ABDOMEN/PELVIS WITH IV 2021-12-[address] [facility] CONTRAST 10:05:00 [facility] CBC W/PLT COUNT & AUTO 2021-12-14 Arif, Sahar [facility] DIFFERENTIAL 05:39:00 [facility] CBC W/PLT COUNT & AUTO 2021-12-14 Arif, Sahar [facility] DIFFERENTIAL 05:39:00 [facility] POCT-GLUCOSE METER 2021-12-[address] [facility] 07:29:00 [facility] BASIC METABOLIC PANEL 2021-12-13 Arif, Miker [facility] 07:06:00 [facility] MAGNESIUM 2021-12-13 Arif, Sahar [facility] 07:06:00 [facility] WOUND CULTURE + GRAM STAIN 2021-12-12 Arif, Miker [facility] 18:11:00 [facility] CBC W/PLT COUNT & AUTO 2021-12-12 Arif, Sahar [facility] DIFFER[facility] 06:12:00 [facility] BASIC METABOLIC PANEL 2021-12-12 Arif, Sahar [facility] 06:12:00 [facility] MAGNESIUM 2021-12-12 Arif, Sahar [facility] 06:12:00 [facility] CBC W/PLT COUNT & AUTO 2021-12-12 Arif, Miker [facility] DIFFERENTIAL 06:12:00 [facility] CT DRAINAGE W CATH PLACEMENT 2021-12-11 Arif, Sahar [facility] 18:10:00 [facility] BASIC METABOLIC PANEL 2021-12-11 Arif, Miker [facility] 05:56:00 [facility] MAGNESIUM 2021-12-11 Arif, Sahar [facility] 05:56:00 [facility] CT ABDOMEN/PELVIS WITH IV 2021-12-[address] [facility] CONTRAST 13:21:00 [facility] SARS-COV2/RT-PCR ([facility] & REF 2021-12-10 Arif, Sahar [facility] LABS) 12:34:00 [facility] CBC W/PLT COUNT & AUTO 2021-12-10 Arif, Sahar [facility] DIFFERENTIAL 05:35:00 [facility] BASIC METABOLIC PANEL 2021-12-10 Arif, Sahar [facility] 05:35:00 [facility] MAGNESIUM 2021-12-10 Arif, Sahar [facility] 05:35:00 [facility] CBC W/PLT COUNT & AUTO 2021-12-10 Arif, Sahar [facility] DIFFERENTIAL 05:35:00 [facility] MISCELLANEOUS LAB ORDER 2021-12-[address] [facility] 17:08:00 [facility] BASIC METABOLIC PANEL 2021-12-09 Arif, Melissa [facility] 04:11:00 [facility] MAGNESIUM 2021-12-09 Arif, Melissa [facility] 04:11:00 [facility] DOUBLE-STRANDED DNA (DSDNA) 2021-12-09 Arif, Melissa [facility] ANTIBODY 04:11:00 [facility] COMPLEMENT COMPONENT C4 2021-12-09 Arif, Melissa [facility] 04:11:00 [facility] PROTHROMBIN TIME/INR 2021-12-09 Arif, Melissa [facility] 04:11:00 [facility] ANTI-DNA TITER 2021-12-09 Arif, Melissa [facility] 04:11:00 [facility] URINALYSIS W/ MICROSCOPIC 2021-12-08 [facility], Mona Cesar [facility] 22:19:00 [facility] PROTEIN, RANDOM URINE 2021-12-08 [facility], [facility] Cesar [facility] 22:18:00 [facility] CREATININE, RANDOM URINE 2021-12-08 [facility] 22:18:00 [facility] POCT-GLUCOSE METER [facility] 10:20:00 [facility] BASIC METABOLIC PANEL 2021-12-08 Adio, Titilola R. [facility] 05:32:00 [facility] HEPATIC FUNCTION PANEL 2021-12-08 Adio, Titilola R. [facility] 05:32:00 [facility] LIPID PANEL 2021-12-08 Adio, Titilola R. [facility] 05:32:00 [facility] MAGNESIUM 2021-12-08 Adio, Titilola R. [facility] 05:32:00 [facility] PHOSPHORUS 2021-12-08 Adio, Titilola R. [facility] 05:32:00 [facility] CBC W/PLT COUNT & AUTO 2021-12-08 Adio, Titilola R. [facility] DIFFERENTIAL 05:32:00 [facility] HEMOGLOBIN A1C 2021-12-08 Adio, Titilola R. [facility] 05:32:00 [facility] CBC W/PLT COUNT & AUTO 2021-12-08 Adio, Titilola R. [facility] DIFFERENTIAL 05:32:00 [facility] Center BLOOD CULTURE 2021-12-07 Laith, Khushi [facility] 14:13:00 [facility] POCT-GLUCOSE METER 2021-12-07 Ozuna, Khushi [facility] 13:44:00 [facility] CBC W/PLT COUNT & AUTO 2021-12-07 Ozuna, Khushi [facility] DIFFERENTIAL 13:39:00 [facility] LACTIC ACID, VENOUS 2021-12-07 Ozuna, Khushi [facility] 13:39:00 [facility] COMPREHENSIVE METABOLIC 2021-12-07 Ozuna, Khushi [facility] PANEL 13:39:00 [facility] PROTHROMBIN TIME/INR 2021-12-07 Ozuna, Khushi [facility] 13:39:00 [facility] APTT 2021-12-07 Ozuna, Khushi [facility] 13:39:00 [facility] LIPASE 2021-12-07 Ozuna, Khushi [facility] 13:39:00 [facility] CBC W/PLT COUNT & AUTO 2021-12-07 Ozuna, Khushi [facility] DIFFERENTIAL 13:39:00 [facility] BUN/CREATININE RATIO W/EGFR 2021-10-19 [facility] 13:53:50 Medicine POCT-GLUCOSE METER 2021-10-[address] [facility] 11:51:00 [facility] POCT-GLUCOSE METER 2021-10-[address] [facility] 07:14:00 [facility] BASIC METABOLIC PANEL 2021-10-[address] [facility] 05:42:00 [facility] HEPATIC FUNCTION PANEL 2021-10-[address] [facility] 05:42:00 [facility] MAGNESIUM 2021-10-[address] [facility] 05:42:00 [facility] PHOSPHORUS 2021-10-[address] [facility] 05:42:00 [facility] CBC W/PLT COUNT & AUTO 2021-10-[address] [facility] DIFFERENTIAL 05:42:00 [facility] CBC W/PLT COUNT & AUTO 2021-10-[address] [facility] DIFFERENTIAL 05:42:00 [facility] POCT-GLUCOSE METER 2021-10-[address] [facility] 21:53:00 [facility] POCT-GLUCOSE METER 2021-10-[address] [facility] 16:39:00 [facility] POCT-GLUCOSE METER 2021-10-[address] [facility] 11:35:00 [facility] BASIC METABOLIC PANEL 2021-10-[address] [facility] 11:05:00 [facility] HEPATIC FUNCTION PANEL 2021-10-[address] [facility] 11:05:00 [facility] MAGNESIUM 2021-10-[address] [facility] 11:05:00 [facility] PHOSPHORUS 2021-10-[address] [facility] 11:05:00 [facility] CBC W/PLT COUNT & AUTO 2021-10-[address] [facility] DIFFERENTIAL 11:05:00 [facility] CBC W/PLT COUNT & AUTO 2021-10-[address] [facility] DIFFERENTIAL 11:05:00 [facility] POCT-GLUCOSE METER 2021-10-[address] [facility] 09:25:00 [facility] POCT-GLUCOSE METER 2021-10-[address] [facility] 20:30:00 [facility] SARS-COV2/RT-PCR ([facility] & REF 2021-10-[address] [facility]) 19:22:00 [facility] POCT-GLUCOSE METER 2021-10-[address] [facility] 17:32:00 [facility] POCT-GLUCOSE METER 2021-10-[address] [facility] 11:58:00 [facility] POCT-GLUCOSE METER 2021-10-[address] [facility] 08:40:00 [facility] BASIC METABOLIC PANEL 2021-10-[address] [facility] 04:39:00 [facility] HEPATIC FUNCTION PANEL 2021-10-08 Francesca, [facility] 04:39:00 [facility] MAGNESIUM 2021-10-[address] [facility] 04:39:00 [facility] PHOSPHORUS 2021-10-[address] [facility] 04:39:00 [facility] CBC W/PLT COUNT & AUTO 2021-10-[address] [facility] DIFFERENTIAL 04:39:00 [facility] CBC W/PLT COUNT & AUTO 2021-10-[address] [facility] DIFFERENTIAL 04:39:00 [facility] POCT-GLUCOSE METER 2021-10-[address] [facility] 21:29:00 [facility] POCT-GLUCOSE METER 2021-10-[address] [facility] 16:23:00 [facility] POCT-GLUCOSE METER 2021-10-[address] [facility] 10:54:00 [facility] POCT-GLUCOSE METER 2021-10-[address] [facility] 07:37:00 [facility] BASIC METABOLIC PANEL 2021-10-[address] [facility] [facility] 04:03:00 [facility] HEPATIC FUNCTION PANEL 2021-10-[address] [facility] 04:03:00 [facility] MAGNESIUM 2021-10-[address] [facility] 04:03:00 [facility] PHOSPHORUS 2021-10-[address] [facility] 04:03:00 [facility] POCT-GLUCOSE METER 2021-10-[address] [facility] 21:21:00 [facility] POCT-GLUCOSE METER 2021-10-[address] [facility] 16:37:00 [facility] POCT-GLUCOSE METER 2021-10-[address] [facility] 12:35:00 [facility] BASIC METABOLIC PANEL 2021-10-[address] [facility] 05:03:00 [facility] HEPATIC FUNCTION PANEL 2021-10-[address] [facility] 05:03:00 [facility] MAGNESIUM 2021-10-[address] [facility] 05:03:00 [facility] PHOSPHORUS 2021-10-[address] [facility] 05:03:00 [facility] CBC W/PLT COUNT & AUTO 2021-10-[address] [facility] DIFFERENTIAL 05:03:00 [facility] CBC W/PLT COUNT & AUTO 2021-10-[address] [facility] DIFFERENTIAL 05:03:00 [facility] POCT-GLUCOSE METER 2021-10-[address] [facility] 21:08:00 [facility] POCT-GLUCOSE METER 2021-10-[address] [facility] 16:19:00 [facility] POCT-GLUCOSE METER 2021-10-[address] [facility] 11:23:00 [facility] POCT-GLUCOSE METER 2021-10-[address] [facility] 07:50:00 [facility] MAGNESIUM 2021-10-[address] [facility] 06:03:00 [facility] PHOSPHORUS 2021-10-[address] [facility] 06:03:00 [facility] CBC W/PLT COUNT & AUTO 2021-10-[address] [facility] DIFFERENTIAL 06:03:00 [facility] CBC W/PLT COUNT & AUTO 2021-10-[address] [facility] DIFFERENTIAL 06:03:00 [facility] BASIC METABOLIC PANEL 2021-10-[address] [facility] 06:03:00 [facility] HEPATIC FUNCTION PANEL 2021-10-[address] [facility] 06:03:00 [facility] SARS-COV2/RT-PCR ([facility] & REF 2021-10-[address] [facility] 05:55:00 [facility] POCT-GLUCOSE METER 2021-10-[address] [facility] 21:11:00 [facility] POCT-GLUCOSE METER 2021-10-[address] [facility] 17:22:00 [facility] POCT-GLUCOSE METER 2021-10-[address] [facility] 11:19:00 [facility] CBC W/PLT COUNT & AUTO 2021-10-[address] [facility] DIFFERENTIAL 05:54:00 [facility] BASIC METABOLIC PANEL 2021-10-[address] [facility] 05:54:00 [facility] HEPATIC FUNCTION PANEL 2021-10-[address] [facility] 05:54:00 [facility] MAGNESIUM 2021-10-[address] [facility] 05:54:00 [facility] PHOSPHORUS 2021-10-[address] [facility] 05:54:00 [facility] CBC W/PLT COUNT & AUTO 2021-10-[address] [facility] DIFFERENTIAL 05:54:00 [facility] POCT-GLUCOSE METER 2021-10-[address] [facility] 16:36:00 [facility] POCT-GLUCOSE METER 2021-10-[address] [facility] 11:34:00 [facility] POCT-GLUCOSE METER 2021-10-[address] [facility] 04:57:00 [facility] BASIC METABOLIC PANEL 2021-10-[address] [facility] 04:52:00 [facility] HEPATIC FUNCTION PANEL 2021-10-[address] [facility] 04:52:00 [facility] MAGNESIUM 2021-10-[address] [facility] 04:52:00 [facility] CBC (HEMOGRAM ONLY) 2021-10-[address] [facility] 04:52:00 [facility] PHOSPHORUS 2021-10-[address] [facility] 04:52:00 [facility] BASIC METABOLIC PANEL 2021-10-[address] [facility] 20:40:00 [facility] CBC (HEMOGRAM ONLY) 2021-10-[address] [facility] 20:40:00 [facility] MAGNESIUM 2021-10-[address] [facility] 20:40:00 [facility] PHOSPHORUS 2021-10-[address] [facility] 20:40:00 [facility] POCT-GLUCOSE METER 2021-10-[address] [facility] [facility] 19:37:00 [facility] RRL CRITICAL LABS 2021-10-02 [facility] (ABG,NA,K,H&H,GLUCOSE) 17:55:12 [facility] enter CALCIUM, IONIZED 2021-10-02 Lissette, Amadoshady [facility] 17:55:12 [facility] BLOOD GAS, ARTERIAL 2021-10-02 Lissette, Amadoshady [facility] 17:55:12 [facility] SODIUM NA-STAT LAB 2021-10-02 Lissette, [facility] 17:55:12 [facility] POTASSIUM-STAT LAB 2021-10-02 Lissette, Amado [facility] 17:55:12 [facility] GLUCOSE-STAT LAB 2021-10-02 Lissette, Amadoshady [facility] 17:55:12 [facility] HGB/HCT (H&H) - STAT LAB 2021-10-02 Lissette, Amadoshady [facility] 17:55:12 [facility] [facility] FUNGUS CULTURE + SMEAR 2021-10-[address] [facility] 17:47:00 [facility] SURGICALLY OBTAINED CULTURE 2021-10-[address] [facility] + GRAM STAIN 17:47:00 [facility] ANAEROBIC CULTURE 2021-10-02 Lissette, Amadoshady [facility] 17:47:00 [facility] AFB CULTURE + SMEAR 2021-10-[address] [facility] (NON-SPUTUM) 17:47:00 [facility] WASHOUT, ABDOMINAL CAVITY 2021-10-02 Lissette, Amado [facility] 16:47:00 [facility] POCT-GLUCOSE METER 2021-10-[address] [facility] 15:51:00 [facility] VANCOMYCIN LEVEL, TROUGH 2021-10-[address] [facility] 13:39:00 [facility] POCT-GLUCOSE METER 2021-10-[address] [facility] 10:50:00 [facility] POCT-GLUCOSE METER 2021-10-[address] [facility] 07:17:00 [facility] BASIC METABOLIC PANEL 2021-10-[address] [facility] 05:48:00 [facility] HEPATIC FUNCTION PANEL 2021-10-[address] [facility] 05:48:00 [facility] MAGNESIUM 2021-10-[address] [facility] 05:48:00 [facility] CBC (HEMOGRAM ONLY) 2021-10-[address] [facility] 05:48:00 [facility] PHOSPHORUS 2021-10-[address] [facility] 05:48:00 [facility] POCT-GLUCOSE METER 2021-10-[address] [facility] 21:35:00 [facility] POCT-GLUCOSE METER 2021-10-[address] [facility] 16:42:00 [facility] SARS-COV2/RT-PCR (HS & REF 2021-10-[address] [facility] LABS) 14:49:00 [facility] TYPE AND SCREEN, AUTOMATED 2021-10-[address] [facility] 14:48:00 [facility] POCT-GLUCOSE METER 2021-10-[address] [facility] 12:11:00 [facility] 2D ECHO W/ DOPPLER 2021-10-[address] [facility] (CW/PW/COLOR) 09:32:46 [facility] CT ABD/PELVIS - PANCREAS 2021-10-01 [address] [facility] EVALUATION 07:54:00 [facility] BASIC METABOLIC PANEL 2021-10-[address] [facility] 04:54:00 [facility] HEPATIC FUNCTION PANEL 2021-10-[address] [facility] 04:54:00 [facility] MAGNESIUM 2021-10-01 Francesca, [facility] 04:54:00 [facility] CBC (HEMOGRAM ONLY) 2021-10-[address] [facility] 04:54:00 [facility] PHOSPHORUS 2021-10-[address] [facility] 04:54:00 [facility] PREPARE LEUKO-REDUCED RBC 2021-09-[address] [facility] 23:54:00 [facility] POCT-GLUCOSE METER 2021-09-[address] [facility] 22:32:00 [facility] BLOOD CULTURE 2021-09-30 Bartsch, Kathy [facility] 20:24:00 [facility] BLOOD CULTURE 2021-09-30 Rebecca, Kathy [facility] 20:23:00 [facility] POCT-GLUCOSE METER 2021-09-30 Rebecca, Kathy [facility] 17:01:00 [facility] POCT-GLUCOSE METER 2021-09-30 Rebecca, Kathy [facility] 11:33:00 [facility] POCT-GLUCOSE METER 2021-09-30 Rebecca, Kathy [facility] 07:38:00 [facility] DOUBLE-STRANDED DNA (DSDNA) 2021-09-30 Rebecca, Kathy [facility] ANTIBODY 05:18:00 [facility] ANTI-DNA TITER 2021-09-[address] [facility] 05:18:00 [facility] COMPLEMENT COMPONENT C3 2021-09-[address] [facility] 01:32:00 [facility] VANCOMYCIN LEVEL, TROUGH 2021-09-30 Alex Hernández [facility] 01:31:00 [facility] BASIC METABOLIC PANEL 2021-09-[address] [facility] 01:31:00 [facility] HEPATIC FUNCTION PANEL 2021-09-[address] [facility] 01:31:00 [facility] MAGNESIUM 2021-09-[address] [facility] 01:31:00 [facility] CBC (HEMOGRAM ONLY) 2021-09-30 Mokhtari, Carmen [facility] 01:31:00 [facility] PHOSPHORUS 2021-09-[address] [facility] 01:31:00 [facility] PREPARE LEUKO-REDUCED RBC 2021-09-[address] [facility] 23:54:00 [facility] POCT-GLUCOSE METER 2021-09-[address] [facility] 20:44:00 [facility] PROTEIN, RANDOM URINE 2021-09-[address] [facility] 17:45:00 [facility] CREATININE, RANDOM URINE 2021-09-[address] [facility] 17:45:00 [facility] URINALYSIS W/ MICROSCOPIC 2021-09-29 Kathy Fernandez [facility] 17:45:00 [facility] TRANSFUSE LEUKO-REDUCED RED 2021-09-29 Teofilori, Carmen [facility] BLOOD CELLS 16:31:00 [facility] TRANSFUSE LEUKO-REDUCED RED 2021-09-29 Teofilori, Carmen [facility] BLOOD CELLS 12:26:00 [facility] POCT-GLUCOSE METER 2021-09-[address] [facility] 08:03:00 [facility] BASIC METABOLIC PANEL 2021-09-[address] [facility] 05:09:00 [facility] HEPATIC FUNCTION PANEL 2021-09-[address] [facility] 05:09:00 [facility] MAGNESIUM 2021-09-[address] [facility] 05:09:00 [facility] CBC (HEMOGRAM ONLY) 2021-09-[address] [facility] 05:09:00 [facility] PHOSPHORUS 2021-09-[address] [facility] 05:09:00 [facility] PROTHROMBIN TIME/INR 2021-09-[address] [facility] 05:09:00 [facility] POCT-GLUCOSE METER 2021-09-[address] [facility] 20:39:00 [facility] ECG 12-LEAD 2021-09-28 Unknown, Hl7 Doctor [facility] 18:40:16 [facility] ECG 12-LEAD 2021-09-28 Unknown, Hl7 Doctor [facility] 18:40:16 [facility] ECG 12-LEAD 2021-09-28 Unknown, Hl7 Doctor [facility] 18:40:16 [facility] XR CHEST 1 VIEW PORTABLE / 2021-09-28 Carmen Knapp [facility] BED[facility]IDE 18:22:00 [facility] HEMOGLOBIN AND HEMATOCRIT 2021-09-28 Rebecca Kathy [facility] 17:38:00 [facility] CT DRAINAGE ABDOMINAL 2021-09-[address] [facility] 16:51:00 [facility] AMYLASE, BODY FLUID 2021-09-[address] [facility] 16:35:00 [facility] BODY FLUID CULTURE + GRAM 2021-09-28 Kathy Fernandez [facility] STAIN 16:34:00 [facility] ANAEROBIC CULTURE 2021-09-[address] [facility] 16:34:00 [facility] AMYLASE 2021-09-[address] [facility] 12:17:00 [facility] POCT-GLUCOSE METER 2021-09-[address] [facility] 12:09:00 [facility] TRANSFUSE LEUKO-REDUCED RED 2021-09-[address] [facility] BLOOD CELLS 08:37:00 [facility] POCT-GLUCOSE METER 2021-09-[address] [facility] 07:47:00 [facility] ABORH, MANUAL 2021-09-[address] [facility] 07:34:00 [facility] TYPE AND SCREEN, AUTOMATED 2021-09-28 Masood Marco Antonioandrew [facility] 06:10:00 [facility] CBC W/PLT COUNT & AUTO 2021-09-[address] [facility] DIFFERENTIAL 03:59:00 [facility] (CELLAVISION MANUAL DIFF) 2021-09-[address] [facility] 03:59:00 [facility] BASIC METABOLIC PANEL 2021-09-[address] [facility] 03:59:00 [facility] HEPATIC FUNCTION PANEL 2021-09-28 Marco Antonio Correiamoud [facility] 03:59:00 [facility] PROTHROMBIN TIME/INR 2021-09-28 [facility] 03:59:00 [facility] MAGNESIUM 2021-09-28 [facility] 03:59:00 [facility] PHOSPHORUS 2021-09-28 [facility], Marco Antonioiaud [facility] 03:59:00 [facility] CBC W/PLT COUNT & AUTO 2021-09-28 [facility] Antonioia[facility] DIFFERENTIAL 03:59:00 [facility] LACTIC ACID, VENOUS 2021-09-28 [facility] 03:59:00 [facility] SARS-COV2/RT-PCR ([facility] & REF 2021-09-[address] [facility]) 02:17:00 [facility] CT ABDOMEN/PELVIS WITH IV 2021-09-27 Kimmy Nunn R [facility] CONTRAST 23:04:00 [facility] CBC W/PLT COUNT & AUTO 2021-09-27 Edouard Kimmy R [facility] DIFFERENTIAL 21:35:00 [facility] (CELLAVISION MANUAL DIFF) 2021-09-27 Edouard Kimmy R [facility] 21:35:00 [facility] BLOOD CULTURE 2021-09-27 Edouard Kimmy R [facility] 21:35:00 [facility] BLOOD CULTURE IDENTIFICATION 2021-09-27 Edouard Kimmy R [facility] PANEL 21:35:00 [facility] CBC W/PLT COUNT & AUTO 2021-09-27 Yaritza Nunnsa R [facility] DIFFERENTIAL 21:35:00 [facility] COMPREHENSIVE METABOLIC 2021-09-27 Yaritza Nunnsa R [facility] PANEL 21:35:00 [facility] LIPASE 2021-09-27 Edouard Kimmy R [facility] 21:35:00 [facility] LACTIC ACID, VENOUS 2021-09-27 Edouard Kimmy R [facility] 21:35:00 [facility] PROTHROMBIN TIME/INR 2021-09-27 Kimmy Nunn R [facility] 21:35:00 [facility] XR CHEST 1 VIEW PORTABLE / 2021-09-27 Harring, Kimmy R [facility] BEDSIDE 20:27:00 [facility] CRITICAL CARE 2021-09-27 Kimmy Nunn R [facility] 20:07:17 [facility] POCT-GLUCOSE METER 2021-09-22 Eli, Irina [facility] 16:25:00 [facility] FECAL LEUKOCYTES 2021-09-[address] [facility] 14:35:00 [facility] POCT-GLUCOSE METER 2021-09-22 Eli, Irina [facility] 11:27:00 [facility] POCT-GLUCOSE METER 2021-09-22 Eli, Irina [facility] 07:31:00 [facility] MAGNESIUM 2021-09-22 Ukani, Nilam [facility] 04:34:00 [facility] BASIC METABOLIC PANEL 2021-09-[address] [facility] [facility] 04:34:00 [facility] POCT-GLUCOSE METER 2021-09-21 Eli, Irina [facility] 21:58:00 [facility] POCT-GLUCOSE METER 2021-09-21 Eli, Irina [facility] 17:14:00 [facility] POCT-GLUCOSE METER 2021-09-21 Eli, Irina [facility] 11:42:00 [facility] POCT-GLUCOSE METER 2021-09-21 Eli, Irina [facility] 07:36:00 [facility] CBC W/PLT COUNT & AUTO 2021-09-[address] [facility] DIFFERENTIAL 04:27:00 [facility] MAGNESIUM 2021-09-21 Ukani, Nilam [facility] 04:27:00 [facility] COMPREHENSIVE METABOLIC 2021-09-[address] [facility] PANEL 04:27:00 [facility] CBC W/PLT COUNT & AUTO 2021-09-21 Castillo Narayan N [facility] DIFFERENTIAL 04:27:00 [facility] FERRITIN 2021-09-[address] [facility] 04:27:00 [facility] POCT-GLUCOSE METER 2021-09-20 Eli, Irina [facility] 22:54:00 [facility] POCT-GLUCOSE METER 2021-09-20 Eli, Irina [facility] 15:43:00 [facility] POCT-GLUCOSE METER 2021-09-[address] [facility] 11:26:00 [facility] POCT-GLUCOSE METER 2021-09-[address] [facility] 08:00:00 [facility] CBC W/PLT COUNT & AUTO 2021-09-[address] [facility] DIFFERENTIAL 03:44:00 [facility] MAGNESIUM 2021-09-20 Ukani, Nilam [facility] 03:44:00 [facility] COMPREHENSIVE METABOLIC 2021-09-[address] [facility] PANEL 03:44:00 [facility] CBC W/PLT COUNT & AUTO 2021-09-[address] [facility] DIFFERENTIAL 03:44:00 [facility] FERRITIN 2021-09-[address] [facility] 03:44:00 [facility] POCT-GLUCOSE METER 2021-09-[address] [facility] 22:13:00 [facility] POCT-GLUCOSE METER 2021-09-[address] [facility] 17:40:00 [facility] MAGNESIUM 2021-09-[address] [facility] 15:24:00 [facility] POCT-GLUCOSE METER 2021-09-[address] [facility] [facility] 13:28:00 [facility] POCT-GLUCOSE METER 2021-09-[address] [facility] 08:10:00 [facility] CBC W/PLT COUNT & AUTO 2021-09-[address] [facility] DIFFERENTIAL 05:35:00 [facility] SARS-COV2/RT-PCR ([facility] & REF 2021-09-[address] [facility] 05:35:00 [facility] MAGNESIUM 2021-09-19 Ukani, Nilam [facility] 05:35:00 [facility] COMPREHENSIVE METABOLIC 2021-09-[address] [facility] PANEL 05:35:00 [facility] CBC W/PLT COUNT & AUTO 2021-09-[address] [facility] DIFFERENTIAL 05:35:00 [facility] FERRITIN 2021-09-19 [address] [facility] 05:35:00 [facility] POCT-GLUCOSE METER 2021-09-18 Alisa, Rebecca P. [facility] 21:29:00 [facility] POCT-GLUCOSE METER 2021-09-18 Alisa, Rebecca P. [facility] 16:56:00 [facility] POCT-GLUCOSE METER 2021-09-18 Alisa, Rebecca P. [facility] 12:15:00 [facility] POCT-GLUCOSE METER 2021-09-18 Alisa, Rebecca P. [facility] 08:35:00 [facility] CBC W/PLT COUNT & AUTO 2021-09-[address] [facility] DIFFERENTIAL 06:58:00 [facility] MAGNESIUM 2021-09-18 Ukani, Nilam [facility] 06:58:00 [facility] COMPREHENSIVE METABOLIC 2021-09-[address] [facility] PANEL 06:58:00 [facility] CBC W/PLT COUNT & AUTO 2021-09-[address] [facility] DIFFERENTIAL 06:58:00 [facility] POCT-GLUCOSE METER 2021-09-17 Alisa, Rebecca P. [facility] 22:17:00 [facility] POCT-GLUCOSE METER 2021-09-17 Alisa, Rebecca P. [facility] 17:06:00 [facility] POCT-GLUCOSE METER 2021-09-17 lAisa, Rebecca P. [facility] 12:18:00 [facility] POCT-GLUCOSE METER 2021-09-17 Alisa, Rebecca P. [facility] 07:52:00 [facility] CBC W/PLT COUNT & AUTO 2021-09-[address] [facility] DIFFERENTIAL 05:45:00 [facility] MAGNESIUM 2021-09-17 Ukani, Nilam [facility] 05:45:00 [facility] FERRITIN 2021-09-[address] [facility] 05:45:00 [facility] COMPREHENSIVE METABOLIC 2021-09-[address] [facility] PANEL 05:45:00 [facility] CBC W/PLT COUNT & AUTO 2021-09-[address] [facility] DIFFERENTIAL 05:45:00 [facility] CMV PCR, QUANTITATIVE 2021-09-[address] [facility] 05:45:00 [facility] GI PATHOGEN PROFILE BY PCR 2021-09-17 [address] [facility] 05:11:00 [facility] GIARDIA ANTIGEN 2021-09-[address] [facility] 05:05:00 [facility] OVA AND PARASITE EXAMINATION 2021-09-[address] [facility] 04:59:00 [facility] POCT-GLUCOSE METER 2021-09-[address] [facility] 22:07:00 [facility] POCT-GLUCOSE METER 2021-09-[address] [facility] 17:29:00 [facility] POCT-GLUCOSE METER 2021-09-[address] [facility] 11:35:00 [facility] POCT-GLUCOSE METER 2021-09-[address] [facility] 07:52:00 [facility] CBC W/PLT COUNT & AUTO 2021-09-16 Rose Lorenzo [facility] DIFFERENTIAL 06:50:00 [facility] MAGNESIUM 2021-09-[address] [facility] 06:50:00 [facility] CBC W/PLT COUNT & AUTO 2021-09-16 Rose Lorenzo [facility] DIFFERENTIAL 06:50:00 [facility] COMPREHENSIVE METABOLIC 2021-09-[address] [facility] PANEL 06:50:00 [facility] FERRITIN 2021-09-[address] [facility] 06:50:00 [facility] POCT-GLUCOSE METER 2021-09-[address] [facility] 21:28:00 [facility] POCT-GLUCOSE METER 2021-09-[address] [facility] 17:17:00 [facility] BASIC METABOLIC PANEL 2021-09-[address] [facility] 16:38:00 [facility] MAGNESIUM 2021-09-[address] [facility] 16:38:00 [facility] VENOUS DOPPLER LEG, LEFT 2021-09-[address] [facility] 15:25:00 [facility] C. DIFFICILE GDH TOXIN 2021-09-15 Rose Lorenzo [facility] 14:29:00 [facility] POCT-GLUCOSE METER 2021-09-[address] [facility] 10:56:00 [facility] POCT-GLUCOSE METER 2021-09-[address] [facility] 07:10:00 [facility] CBC W/PLT COUNT & AUTO 2021-09-15 Rose Lorenzo [facility] DIFFERENTIAL 05:04:00 [facility] MAGNESIUM 2021-09-15 Ukani, Nilam [facility] 05:04:00 [facility] CBC W/PLT COUNT & AUTO 2021-09-15 Rose Lorenzo [facility] DIFFERENTIAL 05:04:00 [facility] COMPREHENSIVE METABOLIC 2021-09-[address] [facility] PANEL 05:04:00 [facility] FERRITIN 2021-09-[address] [facility] 05:04:00 [facility] POCT-GLUCOSE METER 2021-09-[address] [facility] 21:12:00 [facility] POCT-GLUCOSE METER 2021-09-[address] [facility] 18:00:00 [facility] FERRITIN 2021-09-[address] [facility] 14:00:00 [facility] POCT-GLUCOSE METER 2021-09-[address] [facility] 12:40:00 [facility] MAGNESIUM 2021-09-14 Ukani, Nilam [facility] 12:24:00 [facility] BASIC METABOLIC PANEL 2021-09-[address] [facility] 12:24:00 [facility] HEPATIC FUNCTION PANEL 2021-09-14 Rose Lorenzo [facility] 12:24:00 [facility] POCT-GLUCOSE METER 2021-09-[address] [facility] 08:04:00 [facility] POCT-GLUCOSE METER 2021-09-[address] [facility] 21:38:00 [facility] POCT-GLUCOSE METER 2021-09-[address] [facility] 16:22:00 [facility] POCT-GLUCOSE METER 2021-09-[address] [facility] 11:57:00 [facility] POCT-GLUCOSE METER 2021-09-[address] [facility] 09:31:00 [facility] CBC W/PLT COUNT & AUTO 2021-09-13 Ukani, Nilam [facility] DIFFERENTIAL 04:11:00 [facility] CBC W/PLT COUNT & AUTO 2021-09-13 Ukani, Nilam [facility] DIFFERENTIAL 04:11:00 [facility] COMPREHENSIVE METABOLIC 2021-09-13 Ukani, Nilam [facility] PANEL 04:11:00 [facility] MAGNESIUM 2021-09-13 Ukani, Nilam [facility] 04:11:00 [facility] PHOSPHORUS 2021-09-13 Ukani, Nilam [facility] 04:11:00 [facility] POCT-GLUCOSE METER 2021-09-12 Maura Rose CortneyAmanda [facility] 21:08:00 [facility] CBC W/PLT COUNT & AUTO 2021-09-12 Ukani, Nilam [facility] DIFFERENTIAL 17:30:00 [facility] CBC W/PLT COUNT & AUTO 2021-09-12 Ukani, Nilam [facility] DIFFERENTIAL 17:30:00 [facility] COMPREHENSIVE METABOLIC 2021-09-12 Ukani, Nilam [facility] PANEL 17:30:00 [facility] MAGNESIUM 2021-09-12 Ukani, Nilam [facility] 17:30:00 [facility] PHOSPHORUS 2021-09-12 Ukani, Nilam [facility] 17:30:00 [facility] HEMOGLOBIN A1C 2021-09-[address] [facility] 17:30:00 [facility] DOUBLE-STRANDED DNA (DSDNA) 2021-09-[address] [facility] ANTIBODY 17:30:00 [facility] COMPLEMENT COMPONENT C4 2021-09-[address] [facility] 17:30:00 [facility] FERRITIN 2021-09-[address] [facility] 17:30:00 [facility] ANTI-DNA TITER 2021-09-[address] [facility] 17:30:00 [facility] POCT-GLUCOSE METER 2021-09-[address] [facility] 16:59:00 [facility] POCT-GLUCOSE METER 2021-09-[address] [facility] 11:36:00 [facility] XR HIP 2 VIEWS BILATERAL 2021-09-[address] [facility] 10:40:00 [facility] XR SHOULDER COMPLETE 2 VIEWS 2021-09-[address] [facility] MIN RIGHT 10:40:00 [facility] XR HAND 3 VIEWS RIGHT 2021-09-[address] [facility] 10:40:00 [facility] POCT-GLUCOSE METER 2021-09-[address] [facility] 07:29:00 [facility] PROTEIN, RANDOM URINE 2021-09-[address] [facility] 05:46:00 [facility] CREATININE, RANDOM URINE 2021-09-[address] [facility] 05:46:00 [facility] POCT-GLUCOSE METER 2021-09-[address] [facility] 21:23:00 [facility] POCT-GLUCOSE METER 2021-09-[address] [facility] [facility] 16:19:00 [facility] POCT-GLUCOSE METER 2021-09-[address] [facility] 11:34:00 [facility] CBC W/PLT COUNT & AUTO 2021-09-[address] [facility] DIFFERENTIAL 09:40:00 [facility] BLOOD CULTURE 2021-09-[address] [facility] 09:40:00 [facility] CBC W/PLT COUNT & AUTO 2021-09-11 Ukani, Nilam [facility] DIFFERENTIAL 09:40:00 [facility] COMPREHENSIVE METABOLIC 2021-09-11 Uklon, Nilam [facility] PANEL 09:40:00 [facility] MAGNESIUM 2021-09-11 Uklon, Nilam [facility] 09:40:00 [facility] PHOSPHORUS 2021-09-11 Uklon, Nilam [facility] 09:40:00 [facility] POCT-GLUCOSE METER 2021-09-[address] [facility] 07:18:00 [facility] CT ABDOMEN/PELVIS WITH IV 2021-09-[address] [facility] CONTRAST 23:05:00 [facility] POCT-GLUCOSE METER 2021-09-[address] [facility] 20:57:00 [facility] BLOOD CULTURE 2021-09-[address] [facility] 10:38:00 [facility] LACTIC ACID, VENOUS 2021-09-[address] [facility] 10:36:00 [facility] PROTHROMBIN TIME/INR 2021-09-[address] [facility] 10:36:00 [facility] APTT 2021-09-[address] [facility] 10:36:00 [facility] PROCALCITONIN 2021-09-[address] [facility] 10:36:00 [facility] XR CHEST 1 VIEW PORTABLE / 2021-09-[address] [facility] 09:14:00 [facility] CBC W/PLT COUNT & AUTO 2021-09-10 Nj, Nilam [facility] DIFFERENTIAL 05:05:00 [facility] (CELLAVISION MANUAL DIFF) 2021-09-10 Nj, Nilam [facility] 05:05:00 [facility] CBC W/PLT COUNT & AUTO 2021-09-10 Uklon, Nilam [facility] DIFFERENTIAL 05:05:00 [facility] COMPREHENSIVE METABOLIC 2021-09-10 Uklon, Nilam [facility] PANEL 05:05:00 [facility] MAGNESIUM 2021-09-10 Uklon, Nilam [facility] 05:05:00 [facility] PHOSPHORUS 2021-09-[address] [facility] 05:05:00 [facility] POCT-GLUCOSE METER 2021-09-[address] [facility] 20:57:00 [facility] POCT-GLUCOSE METER 2021-09-09 Maura Rose BarrAmanda [facility] 16:16:00 [facility] METABOLIC 2021-09-[address] [facility] PANEL 14:55:00 [facility] POCT-GLUCOSE METER 2021-09-09 Maura Rose CortneyAmanda [facility] 11:25:00 [facility] 2D ECHO MODE W/O DOPPLER 2021-09-09 Babita Cano [facility] 09:55:28 [facility] POCT-GLUCOSE METER 2021-09-09 Maura Rose Cort[address]manda [facility] 06:44:00 [facility] POCT-GLUCOSE METER 2021-09-08 Maura Rose Cort[address]Amanda [facility] 21:08:00 [facility] POCT-GLUCOSE METER 2021-09-08 Maura Rose CortneyAmanda [facility] 19:41:00 [facility] POCT-GLUCOSE METER 2021-09-08 Maura Rose CortneyAmanda [facility] 11:25:00 [facility] POCT-GLUCOSE METER 2021-09-08 Maura Rose CortneyAmanda [facility] 09:10:00 [facility] POCT-GLUCOSE METER 2021-09-[address] [facility] 05:04:00 [facility] CBC W/PLT COUNT & AUTO 2021-09-[address] [facility] DIFFERENTIAL 04:20:00 [facility] CBC W/PLT COUNT & AUTO 2021-09-[address] [facility] DIFFERENTIAL 04:20:00 [facility] COMPREHENSIVE METABOLIC 2021-09-[address] [facility] PANEL 04:20:00 [facility] MAGNESIUM 2021-09-[address] [facility] 04:20:00 [facility] PHOSPHORUS 2021-09-[address] [facility] 04:20:00 [facility] POCT-GLUCOSE METER 2021-09-[address] [facility] 23:09:00 [facility] POCT-GLUCOSE METER 2021-09-[address] [facility] 18:43:00 [facility] HAPTOGLOBIN 2021-09-[address] [facility] 12:25:00 [facility] FIBRINOGEN 2021-09-[address] [facility] 12:25:00 [facility] VANCOMYCIN LEVEL, TROUGH 2021-09-07 De La VegaDavid quarles [facility] 12:25:00 [facility] HEMOGLOBIN AND HEMATOCRIT 2021-09-[address] [facility] 12:25:00 [facility] COMPREHENSIVE METABOLIC 2021-09-[address] [facility] PANEL 12:24:00 [facility] MAGNESIUM 2021-09-[address] [facility] 12:24:00 [facility] PHOSPHORUS 2021-09-[address] [facility] 12:24:00 [facility] LIPASE 2021-09-[address] [facility] 12:24:00 [facility] PROCALCITONIN 2021-09-07 Ciccarell, Babita [facility] 12:24:00 [facility] HEPATIC FUNCTION PANEL 2021-09-07 Ciccarello, Babita [facility] 12:24:00 [facility] POCT-GLUCOSE METER 2021-09-[address] [facility] 12:01:00 [facility] URINALYSIS W/ REFLEX URINE 2021-09-[address] [facility] CULTURE 11:58:00 [facility] CBC W/PLT COUNT & AUTO 2021-09-[address] [facility] DIFFERENTIAL 05:29:00 [facility] (CELLAVISION MANUAL DIFF) 2021-09-07 [facility]overde [facility] 05:29:00 [facility] CBC W/PLT COUNT & AUTO 2021-09-[address] [facility] DIFFERENTIAL 05:29:00 [facility] LACTIC ACID, VENOUS 2021-09-[address] [facility] 05:29:00 [facility] B-TYPE NATRIURETIC FACTOR 2021-09-07 Tiera [facility]overde [facility] (BNP[facility] 05:29:00 [facility] PERIPHERAL BLOOD SMEAR - 2021-09-[address] [facility] PATHOLOGIST REVIEW 05:29:00 [facility] POCT-BLOOD GASES, ARTERIAL 2021-09-[address] [facility] 02:53:00 [facility] POCT-SODIUM 2021-09-[address] [facility] 02:53:00 [facility] POCT-POTASSIUM 2021-09-[address] [facility] 02:53:00 [facility] POCT-HEMOGLOBIN 2021-09-[address] [facility] 02:53:00 [facility] POCT-HEMATOCRIT 2021-09-[address] [facility] 02:53:00 [facility] POCT-GLUCOSE 2021-09-[address] [facility] 02:53:00 [facility] XR CHEST 1 VIEW PORTABLE / 2021-09-[address] [facility] BEDS[facility] 02:51:00 [facility] ECG 12-LEAD 2021-09-[address] [facility] 01:42:00 [facility] ECG 12-LEAD 2021-09-07 Unknown, Hl7 Doctor [facility] 01:42:00 [facility] ECG 12-LEAD 2021-09-07 Unknown, Hl7 Doctor [facility] 01:42:00 [facility] ECG 12-LEAD 2021-09-[address] [facility] 01:37:32 [facility] ECG 12-LEAD 2021-09-07 Unknown, Hl7 Doctor [facility] 01:37:32 [facility] ECG 12-LEAD 2021-09-07 Unknown, Hl7 Doctor [facility] 01:37:32 [facility] BASIC METABOLIC PANEL 2021-09-07 Shama [facility]enthal [facility] 01:05:00 [facility] MAGNESIUM 2021-09-[address] [facility] 01:05:00 [facility] PHOSPHORUS 2021-09-[address] [facility] 01:05:00 [facility] LACTATE DEHYDROGENASE (LDH) 2021-09-[address] [facility] 01:05:00 [facility] BILIRUBIN, DIRECT 2021-09-[address] [facility] 01:05:00 [facility] POCT-GLUCOSE METER 2021-09-[address] [facility] 23:58:00 [facility] POCT-GLUCOSE METER 2021-09-06 Mk Rosenthalabhinav Altamiranol [facility] 15:46:00 [facility] MRSA SCREEN 2021-09-06 Uklon, Nilam [facility] 12:58:00 [facility] POCT-GLUCOSE METER 2021-09-06 Galo Shama Altamiranol [facility] 12:53:00 [facility] POCT-GLUCOSE METER 2021-09-06 [address] Ros[address] Kev [facility] 07:29:00 [facility] URINALYSIS W/ MICROSCOPIC 2021-09-[address] [facility] 05:28:00 [facility] PROTEIN, RANDOM URINE 2021-09-06 Dahlia, Lynette [facility] 05:28:00 [facility] CREATININE, RANDOM URINE 2021-09-06 Dahlia, Lynette [facility] 05:28:00 [facility] COMPLEMENT COMPONENT C4 2021-09-06 anti, Lynette [facility] 05:14:00 [facility] VITAMIN D, 25-HYDROXY 2021-09-06 Shama Rosenthal [facility] 05:14:00 [facility] TSH/FREE T4 IF INDICATED 2021-09-06 Ukani, Nilam [facility] 05:14:00 [facility] XR CHEST 1 VIEW PORTABLE / 2021-09-06 Kareem Calhoun [facility] 02:18:00 [facility] BLOOD CULTURE 2021-09-[address] [facility] 02:06:00 [facility] CBC W/PLT COUNT & AUTO 2021-09-[address] [facility] DIFFERENTIAL 02:01:00 [facility] (CELLAVISION MANUAL DIFF) 2021-09-06 Shama Rosenthal Ken[facility] 02:01:00 [facility] BLOOD CULTURE 2021-09-[address] [facility] 02:01:00 [facility] CBC W/PLT COUNT & AUTO 2021-09-[address] [facility] DIFFERENTIAL 02:01:00 [facility] LACTIC ACID, VENOUS 2021-09-06 Mk [address]l Kev [facility] 02:01:00 [facility] PHOSPHORUS 2021-09-06 Ukani, Nilam [facility] 02:00:00 [facility] MAGNESIUM 2021-09-06 Ukani, Nilam [facility] 02:00:00 [facility] COMPREHENSIVE METABOLIC 2021-09-06 Mk [address]enth[address]l Kev [facility] PANEL 02:00:00 [facility] SARS-COV2/RT-PCR (HS & REF 2021-09-[address] [facility] 01:54:00 [facility] ECG 12-LEAD 2021-09-[address] [facility] 01:44:10 [facility] POCT-GLUCOSE METER 2021-09-[address] [facility] 01:04:00 [facility] BASIC METABOLIC PANEL 2021-09-05 [facility]cata [facility] 19:09:00 [facility] MAGNESIUM 2021-09-05 Mk Rosenthalll Eveliacata [facility] 19:09:00 [facility] PHOSPHORUS 2021-09-05 Mk Rosenthalll Evelial [facility] 19:09:00 [facility] POCT-GLUCOSE METER 2021-09-[address] [facility] 19:00:00 [facility] DOUBLE-STRANDED DNA (DSDNA) 2021-09-05 Maganti, Lynette [facility] ANTIBODY 16:26:00 [facility] FERRITIN 2021-09-05 Maganti, Lynette [facility] 16:26:00 [facility] ANTI-DNA TITER 2021-09-05 Maganti, Lynette [facility] 16:26:00 [facility] POCT-GLUCOSE METER 2021-09-[address] [facility] 12:11:00 [facility] POCT-GLUCOSE METER 2021-09-05 Galo [address] Henzell [facility] 06:34:00 [facility] COMPREHENSIVE METABOLIC 2021-09-05 Ukani, Nilam [facility] PANEL 04:46:00 [facility] CBC (HEMOGRAM ONLY) 2021-09-05 Ukani, Nilam [facility] 04:46:00 [facility] CALCIUM, IONIZED 2021-09-[address] [facility] 04:46:00 [facility] BASIC METABOLIC PANEL 2021-09-05 Shama [facility]enthall [facility] 00:40:00 [facility] MAGNESIUM 2021-09-05 Shama Rosenthal Henzell [facility] 00:40:00 [facility] PHOSPHORUS 2021-09-[address] [facility] 00:40:00 [facility] POCT-GLUCOSE METER 2021-09-04 Shama Rosenthal [address]onzell [facility] 23:48:00 [facility] CT ABDOMEN/PELVIS WITH IV 2021-09-04 Nj, Nilam [facility] CONTRAST 21:08:00 [facility] CT CHEST FOR PULMONARY 2021-09-04 Mk Rosenthalll Henzell [facility] EMBOLUS 21:08:00 [facility] POCT-GLUCOSE METER 2021-09-04 Shama Rosenthal Tysonzell [facility] 18:12:00 [facility] CALCIUM 2021-09-04 Nj, Nilam [facility] 14:09:00 [facility] POCT-GLUCOSE METER 2021-09-04 Mk Rosenthalll Henzell [facility] 13:06:00 [facility] ECG 12-LEAD 2021-09-04 Ukani, Nilam [facility] 08:09:50 [facility] POCT-GLUCOSE METER 2021-09-04 Galo Shama Henzell [facility] 06:04:00 [facility] CBC W/PLT COUNT & AUTO 2021-09-04 Ukani, Nilam [facility] DIFFERENTIAL 04:12:00 [facility] COMPREHENSIVE METABOLIC 2021-09-04 Ukani, Nilam [facility] PANEL 04:12:00 [facility] MAGNESIUM 2021-09-04 Nj, Nilam [facility] 04:12:00 [facility] CBC W/PLT COUNT & AUTO 2021-09-04 Nj, Nilam [facility] DIFFERENTIAL 04:12:00 [facility] URINE CULTURE 2021-09-04 Nj, Nilam [facility] 00:21:00 [facility] URINALYSIS W/ REFLEX URINE 2021-09-04 Nj, Nilam [facility] CULTURE 00:21:00 [facility] POCT-GLUCOSE METER 2021-09-[address] [facility] 00:14:00 [facility] POCT-GLUCOSE METER 2021-09-[address] [facility] 17:51:00 [facility] CBC W/PLT COUNT & AUTO 2021-09-[address] [facility] DIFFERENTIAL 16:56:00 [facility] COMPREHENSIVE METABOLIC 2021-09-[address] [facility] PANEL 16:56:00 [facility] CBC W/PLT COUNT & AUTO 2021-09-[address] [facility] DIFFERENTIAL 16:56:00 [facility] MAGNESIUM 2021-09-03 Nj, Nilam [facility] 16:56:00 [facility] XR ABDOMEN/KUB 1 VIEW 2021-09-[address] [facility] PORTABLE 16:05:00 [facility] XR CHEST 1 VIEW PORTABLE / 2021-09-03 Nj, Nilam [facility] 16:02:00 [facility] XR ABDOMEN/KUB 1 VIEW 2021-09-03 GaloShama [facility] PORTABLE 12:50:00 [facility] COMPREHENSIVE METABOLIC 2021-09-03 Gabriel, Nilsa Gladys [facility] PANEL 05:02:00 [facility] PHOSPHORUS 2021-09-03 Nj, Nilam [facility] 05:02:00 [facility] POCT-GLUCOSE METER 2021-09-[address] [facility] 22:13:00 [facility] POCT-GLUCOSE METER 2021-09-02 Galo, Shama Henzell [facility] 18:48:00 [facility] CREATININE, RANDOM URINE 2021-09-02 avaclarau, [facility] 04:39:00 [facility] PROTEIN, RANDOM URINE 2021-09-02 Bhavarasu, [facility] 04:39:00 [facility] POCT-GLUCOSE METER 2021-09-[address] [facility] 23:16:00 [facility] POCT-GLUCOSE METER 2021-09-[address] [facility] 18:08:00 [facility] HIGH SENSITIVITY TROPONIN I 2021-09-01 Uklon, Nilam [facility] 16:25:00 [facility] XR CHEST 1 VIEW PORTABLE / 2021-09-01 Ukani, Nilam [facility] 16:21:00 [facility] ECG 12-LEAD 2021-09-01 Unknown, Hl7 Doctor [facility] 15:41:33 [facility] ECG 12-LEAD 2021-09-01 Unknown, Hl7 Doctor [facility] 15:41:33 [facility] CBC W/PLT COUNT & AUTO 2021-09-01 avarasu, [facility] DIFFERENTIAL 06:00:00 [facility] (CELLAVISION MANUAL DIFF) 2021-09-01 Kaydenavarasu, [facility] 06:00:00 [facility] COMPREHENSIVE METABOLIC 2021-09-01 Nalam, Nilsa Gladys [facility] PANEL 06:00:00 [facility] PROTHROMBIN TIME/INR 2021-09-01 Ukani, Nilam [facility] 06:00:00 [facility] PT/APTT 2021-09-01 Ukani, Nilam [facility] 06:00:00 [facility] CBC W/PLT COUNT & AUTO 2021-09-01 avarasu, [facility] DIFFERENTIAL 06:00:00 [facility] T SPOT TB 2021-09-[address] [facility] 06:00:00 [facility] IMMUNOGLOBULIN A (IGA) 2021-09-[address] [facility] 06:00:00 [facility] POCT-GLUCOSE METER 2021-08-[address] [facility] 21:49:00 [facility] POCT-GLUCOSE METER 2021-08-[address] [facility] 17:13:00 [facility] POCT-GLUCOSE METER 2021-08-[address] [facility] 13:28:00 [facility] POCT-GLUCOSE METER 2021-08-[address] [facility] 08:41:00 [facility] MISCELLANEOUS LAB ORDER 2021-08-[address] [facility] 06:22:00 [facility] MISCELLANEOUS LAB ORDER 2021-08-[address] [facility] 05:16:00 [facility] ANTI-DARRIN AB (RNA, LACY) 2021-08-31 blayne, [facility] 05:14:00 [facility] CYCLIC CITRULLINATED PEPTIDE 2021-08-31 avaclarau, [facility] AB, IGG 05:14:00 [facility] CBC (HEMOGRAM ONLY) 2021-08-31 Nalam, Nilsa Gladys [facility] 05:14:00 [facility] PROTHROMBIN TIME/INR 2021-08-31 Nj, Nilam [facility] 05:14:00 [facility] PT/APTT 2021-08-31 Nj, Nilam [facility] 05:14:00 [facility] RETICULOCYTE COUNT 2021-08-[address] [facility] 05:14:00 [facility] MISCELLANEOUS LAB ORDER 2021-08-[address] [facility] 05:13:00 [facility] COMPLEMENT COMPONENT C4 2021-08-31 [address]ama Rosenthal Kev [facility] 05:13:00 [facility] FERRITIN 2021-08-31 Kaydenavaclarau, [facility] 05:13:00 [facility] RHEUMATOID FACTOR AB, REFLEX 2021-08-31 avaclarau, [facility] TO TITER 05:13:00 [facility] MAGNESIUM 2021-08-[address] [facility] 05:13:00 [facility] COMPREHENSIVE METABOLIC 2021-08-[address] [facility] PANEL 05:13:00 [facility] HC LAB HIV-1 AG W/HIV-1&2 AB 2021-08-31 Shama Rosenthal Evelia ivy [facility] 05:13:00 [facility] RPR 2021-08-[address] [facility] 05:13:00 [facility] RHEUMATOID FACTOR TITER 2021-08-[address] [facility] 05:13:00 [facility] POCT-GLUCOSE METER 2021-08-30 Shama Rosenthal Evelial [facility] 21:08:00 [facility] POCT-GLUCOSE METER 2021-08-[address] [facility] 17:25:00 [facility] POCT-GLUCOSE METER 2021-08-30 Shama Rosenthal Kev [facility] 12:38:00 [facility] POCT-GLUCOSE METER 2021-08-[address] [facility] 08:11:00 [facility] MAGNESIUM 2021-08-[address] [facility] 03:22:00 [facility] COMPREHENSIVE METABOLIC 2021-08-[address] [facility] PANEL 03:22:00 [facility] CBC (HEMOGRAM ONLY) 2021-08-[address] [facility] 03:22:00 [facility] PROTHROMBIN TIME/INR 2021-08-30 Ukani, Nilam [facility] 03:22:00 [facility] PT/APTT 2021-08-30 Ukani, Nilam [facility] 03:22:00 [facility] C-REACTIVE PROTEIN 2021-08-30 Ukani, Nilam [facility] 03:22:00 [facility] DOUBLE-STRANDED DNA (DSDNA) 2021-08-30 Ukani, Nilam [facility] ANTIBODY 03:22:00 [facility] LIPASE 2021-08-[address] [facility] 03:22:00 [facility] ANTI-DNA TITER 2021-08-30 Ukani, Nilam [facility] 03:22:00 [facility] POCT-GLUCOSE METER 2021-08-29 Nalam, Nilsa Gladys [facility] 21:37:00 [facility] POCT-GLUCOSE METER 2021-08-29 Nalam, Nilsa Gladys [facility] 17:43:00 [facility] FIBRINOGEN 2021-08-29 Bailey, Peace [facility] 13:31:00 [facility] PHOSPHATIDYLSERINE ABS (IGG, 2021-08-29 Bailey, Peace [facility] IGM) 13:31:00 [facility] HEREDITARY HEMOCHROMATOSIS 2021-08-[address] [facility] 13:31:00 [facility] POCT-GLUCOSE METER 2021-08-29 Nalam, Nilsa Gladys [facility] 11:43:00 [facility] POCT-GLUCOSE METER 2021-08-29 Jasielam, Nilsa Gladys [facility] 08:43:00 [facility] SARS-COV2/RT-PCR (HS & REF 2021-08-[address] [facility]) 04:44:00 [facility] MAGNESIUM 2021-08-29 Vernell Gonzalez [facility] 04:41:00 [facility] COMPREHENSIVE METABOLIC 2021-08-29 Nilsa Rios Gladys [facility] PANEL 04:41:00 [facility] PROTHROMBIN TIME/INR 2021-08-[address] [facility] 04:41:00 [facility] LIPASE 2021-08-[address] [facility] 04:41:00 [facility] PHOSPHORUS 2021-08-[address] [facility] 04:41:00 [facility] (MANUAL DIFFERENTIAL) 2021-08-[address] Rios [address]ys [facility] 04:40:00 [facility] CBC (HEMOGRAM ONLY) 2021-08-29 [address]ils[address] Rios Gladys [facility] 04:40:00 [facility] PERIPHERAL BLOOD SMEAR - 2021-08-[address] [facility] PATHOLOGIST REVIEW 04:40:00 [facility] 2021-08-29 Jasielam, Nilsa Gladys [facility] 04:30:00 [facility] ACTIN (SMOOTH MUSCLE) 2021-08-28 Caro, Rik Méndezir [facility] ANTIBODY, IGG 14:55:00 [facility] ANTI-MITOCHONDRIAL AB, 2021-08-28 Caro, Rik Lio [facility] REFLEX TO TITER 14:55:00 [facility] ANTI-NUCLEAR ANTIBODY (STU) 2021-08-28 Gordo, Raja Lio [facility] 14:55:00 [facility] CERULOPLASMIN 2021-08-28 Gordo, Raja Lio [facility] 14:55:00 [facility] FERRITIN 2021-08-28 Caro, Raja Lio [facility] 14:55:00 [facility] HEPATITIS A ANTIBODY, IGG 2021-08-28 Gordo, Rik Vaca [facility] 14:55:00 [facility] HEPATITIS B CORE ANTIBODY, 2021-08-28 Gordo, Rik Méndezir [facility] TOTAL 14:55:00 [facility] HEPATITIS B SURFACE ANTIBODY 2021-08-28 Gordo Rik Vaca [facility] 14:55:00 [facility] HEPATITIS B SURFACE ANTIGEN 2021-08-28 Gordo, Rik Lio [facility] 14:55:00 [facility] HEPATITIS C ANTIBODY 2021-08-28 Gordo, Rik Vaca [facility] 14:55:00 [facility] IMMUNOGLOBULIN G (IGG) 2021-08-28 Gordo, Rik Vaca [facility] 14:55:00 [facility] IRON, TIBC, % SAT. (WITHOUT 2021-08-28 Gordo, Piyusha Lio [facility] FERRITIN) 14:55:00 [facility] STU TITER AND PATTERN 2021-08-28 Gordo, Rik M[facility]dezir [facility] 14:55:00 [facility] MITOCHONDRIAL AB SCREEN 2021-08-28 Gordo, Raja Lio [facility] 14:55:00 [facility] MITOCHONDRIAL AB TITER 2021-08-28 Gordo, Piyusha Lio [facility] 14:55:00 [facility] MISCELLANEOUS LAB ORDER 2021-08-28 Gordo, Piyusha Lio [facility] 14:10:00 [facility] [id number], SERUM 2021-08-28 Caro, Raja Lio [facility] 14:10:00 [facility] RAPID DRUG SCREEN, URINE 2021-08-[address] [facility] 13:54:00 [facility] POCT-GLUCOSE METER 2021-08-28 Nalam, Nilsa Gladys [facility] 12:20:00 [facility] POCT-GLUCOSE METER 2021-08-28 Nalam, Nilsa Gladys [facility] 08:07:00 [facility] MAGNESIUM 2021-08-[address] [facility] 04:38:00 [facility] COMPREHENSIVE METABOLIC 2021-08-28 Nalam, Nilsa Gladys [facility] PANEL 04:38:00 [facility] CBC (HEMOGRAM ONLY) 2021-08-28 Gabriel, Nilsa Gladys [facility] 04:38:00 [facility] POCT-GLUCOSE METER 2021-08-27 Jasielam, Nilsa Gladys [facility] 22:18:00 [facility] MR ABDOMEN WITHOUT IV 2021-08-27 Jasielam, Nilsa Gladys [facility] CONTR[facility] MRCP 17:55:00 [facility] MR ABDOMEN WITH & WITHOUT IV 2021-08-27 Jasielam, Nilsa Gladys [facility] CONTRAST 17:55:00 [facility] MAGNESIUM 2021-08-[address] [facility] 05:38:00 [facility] COMPREHENSIVE METABOLIC 2021-08-27 Gabriel, Nilsa Gladys [facility] PANEL 05:38:00 [facility] CBC (HEMOGRAM ONLY) 2021-08-27 Jasielam, Nilsa Gladys [facility] 05:38:00 [facility] URINALYSIS W/ REFLEX URINE 2021-08-[address] [facility] CULTURE 04:24:00 [facility] BLOOD CULTURE 2021-08-[address] [facility] 04:15:00 [facility] BLOOD CULTURE 2021-08-[address] [facility] 01:51:00 [facility] CBC W/PLT COUNT & AUTO 2021-08-[address] [facility] DIFFERENTIAL 01:50:00 [facility] (CELLAVISION MANUAL DIFF) 2021-08-[address] [facility] 01:50:00 [facility] CBC W/PLT COUNT & AUTO 2021-08-[address] [facility] DIFFERENTIAL 01:50:00 [facility] COMPREHENSIVE METABOLIC 2021-08-[address] [facility] PANEL 01:50:00 [facility] MAGNESIUM 2021-08-[address] [facility] 01:50:00 [facility] TRIGLYCERIDES 2021-08-[address] [facility] 01:50:00 [facility] LIPASE 2021-08-[address] [facility] 01:50:00 [facility] PROTHROMBIN TIME/INR 2021-08-[address] [facility] 01:49:00 [facility] IGG SUBCLASS-4 ONLY 2021-08-26 MervinVernell [facility] 01:49:00 [facility] Plan of Care Planned Activity Planned Date [...] Luke s Test 00:00:00 (procedure) [code = [facility] [id number]] Future Scheduled 2024-12-[address] [facility] Test 00:00:00 (procedure) [code = [facility] [id number]] Future Scheduled 2024-12-[address] [facility] Test 00:00:00 (procedure) [code = [facility] [id number]] Future Scheduled 2022-01-18 INFLUENZA VACCINE (#1) C [...] Clinicians Facility Department ID 2022-02-21 Outpatient 3 [id number] [facility] REF [id number] [facility] 15:15:18 [facility] [place] 2022-02-09 Outpatient 3 VJ CROUCH CVA [id number] [facility] 10:16:03 [facility] [place] 2022-02-07 Outpatient 3 VJ CROUCH CV [id number] [facility] 12:02:45 [facility] [place] 2022-02-06 Outpatient 3 [id number] [facility] REF [id number] [facility] 12:16:49 [facility] [place] 2021-12-07 [facility] [id number] 00:00:00 Encounter [facility] 2021-12-07 [facility] [id number] 00:00:00 Encounter [facility] 2021-10-09 Outpatient 3 VJ CROUCH [facility] [id number] [facility] 10:19:53 [facility] [place] 2021-10-08 Outpatient 3 VJ CROUCH [facility] [id number] [facility] 16:06:37 [facility] [place] 2021-10-05 Outpatient 3 [id number] [facility] REF [id number] [facility] 08:52:05 [facility] [place] 2021-10-04 Outpatient 3 [id number] [facility] REF [id number] [facility] 08:39:39 [facility] [place] 2021-09-25 Outpatient 3 [id number] [facility] [id number] [facility] 10:41:49 [facility] [place] 2021-09-04 Outpatient 3 [id number] [facility] REF [id number] [facility] 15:32:58 [facility] [place] 2021-09-04 Outpatient 3 [id number] [facility] REF [id number] [facility] 08:59:04 0418 ss [facility] [place] 2021-09-02 Outpatient 3 [id number] [facility] REF [id number] [facility] 11:35:01 0416 [facility] [place] 2021-09-01 Outpatient 3 [id number] [facility] REF [id number] [facility] 14:10:28 0415 [facility] [place] 2022-03-14 2022-03-14 Emergency X [facility] ERT [id number] [facility] 13:27:00 18:30:00 ANETA lovelace [facility] 2022-03-14 2022-03-14 Emergency Singer [facility] [id number] [facility] 13:27:00 18:30:00 Aneta WHATLEY [id number] i [facility] [id number] [facility] [id number] [address] 2022-02-18 2022-03-12 Inpatient ER [facility] Emergency [id number] [facility] 23:00:00 16:50:00 SILVIO 2022-02-18 2022-03-12 [facility] [id number] 23:00:00 16:50:00 Encounter Silvio Mccray [address] [place] [address] 2022-02-18 2022-03-12 [facility] [id number] 23:00:00 16:50:00 Encounter Silvio Mckeon[address] 2022-03-08 2022-03-08 Orders [facility] [id number] 00:00:00 00:00:00 Only [facility] 2022-03-08 2022-03-08 Orders [facility] [id number] 00:00:00 00:00:00 Only [facility] 2022-02-11 2022-02-21 Inpatient 3 HEVER CROUCHKELECHI [facility] [id number] [facility] 21:26:00 11:05:00 WILLARD [id number] [facility] 2022-02-20 2022-02-20 Outpatient EL ARNOL Crouch [facility] [id number] [facility] 10:18:00 10:18:00 Willard 69 [facility] 2022-01-25 2022-02-11 Inpatient ER ELI, [facility] Surgery [id number] [facility] 04:38:00 21:00:00 IRINA 2022-01-25 2022-02-11 [facility] Gricelda Arteaga [facility] [id number] 04:38:00 21:00:00 Encounter Nilsa Rios [facility], [facility] 2022-01-25 2022-02-11 [facility] Gricelda Arteaga [facility] [id number] 04:38:00 21:00:00 Encounter Nilsa Rios [facility], [facility] Irina 2022-02-07 2022-02-07 Anesthesia Tamia Jha [facility] [id number] 12:47:00 16:04:00 Event Hallie [facility] 2022-02-07 2022-02-07 Anesthesia Ritesh Jhaala [facility] [id number] 12:47:00 16:04:00 Event [facility] [facility] 2022-02-07 2022-02-07 Surgery Lissette, [facility] [id number] 11:56:00 15:22:00 [facility] 2022-02-07 2022-02-07 Surgery Lissette, [facility] [id number] 11:56:00 15:22:00 [facility] 2022-02-02 2022-02-02 Surgery Willard, [facility] [id number] 12:00:00 13:00:00 [facility] 2022-02-02 2022-02-02 Surgery Willard, [facility] [id number] 12:00:00 13:00:00 [facility] 2022-02-02 2022-02-02 Anesthesia Jason, [facility] [id number] 11:37:00 12:37:00 Event [facility] 2022-02-02 2022-02-02 Anesthesia Jason, [facility] [id number] 11:37:00 12:37:00 Event [facility] 2022-01-25 2022-01-25 Outpatient [place] BC [id number] [facility] 04:38:00 23:59:00 [facility] 2022-01-25 2022-01-25 Outpatient [facility] [id number] [facility] 04:38:00 04:38:00 [facility] 2022-01-25 2022-01-25 Travel [facility] [id number] [facility] 00:00:00 00:00:00 [facility] 2022-01-25 2022-01-25 Travel [facility] [id number] [facility] 00:00:00 00:00:00 [facility] 2021-12-07 2021-12-25 Inpatient ER MARVA, [facility] Emergency [id number] [facility] 12:15:00 21:00:00 BETHANY 2021-12-07 2021-12-25 [facility] [id number] 12:15:00 21:00:00 [facility] 2021-12-07 2021-12-25 [facility] [id number] 12:15:00 21:00:00 Encounter [facility] 2021-12-11 2021-12-11 Outside Marva [facility] [id number] 00:00:00 00:00:00 Orders Bethany [facility] 2021-12-11 2021-12-11 Outside Marva [facility] [id number] 00:00:00 00:00:00 Orders Bethany [facility] 2021-12-08 2021-12-08 Travel [facility] [id number] [facility] 00:00:00 00:00:00 [facility] 2021-12-08 2021-12-08 Travel [facility] [id number] [facility] 00:00:00 00:00:00 [facility] 2021-12-07 2021-12-07 Travel [facility] [id number] [facility] 00:00:00 00:00:00 [facility] 2021-12-07 2021-12-07 Travel [facility] [id number] [facility] 00:00:00 00:00:00 [facility] 2021-10-10 2021-10-27 Inpatient 3 VJ CROUCH OT [id number] [facility] 15:00:00 13:33:00 WILLARD [id number] [facility] itation [place] 2021-10-23 2021-10-23 Outpatient NICHO CrouchKEAGANKW [facility]YCHIATR[facility] [id number] [facility] 13:20:00 13:20:00 Willard 60 [facility] 2021-10-20 2021-10-20 Outside [facility] [id number] 00:00:00 00:00:00 Orders [facility] 2021-10-20 2021-10-20 Outside [facility] [id number] 00:00:00 00:00:00 Orders [facility] 2021-10-19 2021-10-19 Outpatient LISSETTE [facility] [id number] [address] [place] [address] 13:28:45 14:35:41 AMADO Vidal Medicin alejandro 2021-10-19 2021-10-19 Outpatient RIA HILARIO [facility] [id number] SLE 00:00:00 00:00:00 DOUG 2021-09-27 2021-10-10 Inpatient ER RIA MAN Emergency [id number] [facility] 17:55:00 14:32:00 SUHAIL 2021-09-27 2021-10-10 [facility] Kimmy Nunn [facility] [id number] 17:55:00 14:32:00 [facility] 2021-09-27 2021-10-10 [facility] Kimmy Nunn [facility] [id number] 17:55:00 14:32:00 [facility] 2021-10-10 2021-10-10 Outpatient NICHO [facility]ANDRO [facility] [id number] [facility] 00:00:00 00:00:00 DOUG 2021-10-02 2021-10-02 Anesthesia Aravind Harley [facility] [id number] 17:02:00 19:27:00 Event [facility] 2021-10-02 2021-10-02 Anesthesia Aravind Harley Orlin [facility] [id number] 17:02:00 19:27:00 Event Ary Cohen [facility] 2021-10-02 2021-10-02 Surgery [facility], [facility] [id number] 16:30:00 19:12:00 [facility] 2021-10-02 2021-10-02 Surgery [facility], [facility] [id number] 16:30:00 19:12:00 [facility] 2021-09-28 2021-09-28 Outpatient [facility] [id number] [facility] 00:00:00 23:59:00 [facility] 2021-09-22 2021-09-27 Inpatient 3 TI, ENCHU ART [id number] [facility] 19:40:00 16:58:00 WILLARD [facility] [place] 2021-09-27 2021-09-27 Outpatient ARNOL Flaherty [facility] [id number] [facility] 13:42:00 13:42:00 Willard 14 [facility] 2021-08-25 2021-09-22 Inpatient ER RIA BENITEZ [facility] [id number] [facility] 23:24:00 18:50:00 IRINA 2021-08-25 2021-09-22 [facility] Mana Dow [facility] [id number] 23:24:00 18:50:00 Encounter Vernell Gonzalez [facility], [facility], [facility], Oren Cuellar, Rebecca Benitez, Irina 2021-08-25 2021-09-22 [facility] ER Mana Dow [facility] [id number] 23:24:00 18:50:00 Encounter Vernell Gonzalez [facility], [facility], Oren Cuellar, Rebecca Benitez, Irina 2021-09-07 2021-09-07 Outpatient CHAPIS OSPINA [id number] [facility] 00:00:00 00:00:00 BEAR deleon 2021-09-04 2021-09-04 Outpatient [facility] [id number] [facility] 00:00:00 23:59:00 Paco 2021-09-01 2021-09-01 Orders [facility] [id number] 00:00:00 00:00:00 Only [facility] 2021-09-01 2021-09-01 Orders [facility] [id number] 00:00:00 00:00:00 Only [facility] 2021-08-26 2021-08-26 Travel [facility] [id number] [facility] 00:00:00 00:00:00 [facility] 2021-08-26 2021-08-26 Travel [facility] [id number] CHI 00:00:00 00:00:00 [facility] Results Test Description Test Time Test Comments Results Result Comments Source LIPASE 2022-03-14 20:23:20 Test Item Value Reference Range Interpretation Comme nts LIPASE (test code = 6861598681) 105 U/L 0-220 Lab Interpretation (test code = 87167-8) Normal [facility] (03925)2022-03-14 20:23:20 Test Item Value Reference Range Interpretation Comments NA (test code = 139 mmol/L 135-145 3922043142) K (test code = 4.4 mmol/L 3.5-5.0 0222523286) CL (test code = 98 mmol/L 98-108 3228064800) CO2 TOTAL (test code 30 mmol/L 23-31 = 4413975059) AGAP (test code = 2-16 0917980296) BUN (test code = 16 mg/dL 7-23 2431101914) GLUCOSE (test code = 104 mg/dL 70-110 1240729596) CREATININE (test code 0.64 mg/dL 0.50-1.04 = 4597539431) TOTAL BILI (test code 0.5 mg/dL 0.1-1.1 = 1058097495) CALCIUM (test code = 10.0 mg/dL 8.6-10.6 9832854674) T PROTEIN (test code 8.1 g/dL 6.3-8.2 = 9841947751) ALBUMIN (test code = 4.4 g/dL 3.5-5.0 1368388670) ALK PHOS (test code = 98 U/L 34-122 1833467542) ALTv (test code = 31 U/L 5-35 1742-6) AST(SGOT) (test code 33 U/L 13-40 = 8117907596) eGFR (test code = mL/min/1.73m2 2334059805) IDALIA (test code = IDALIA) Association of Glomerular Filtration Rate (GFR) and Staging of Kidney Disease* + + +- +| GFR (mL/min/1.73 m2) ?| With Kidney Damage ?| ?Without Kidney Damage+ ------+ ----+ ------+| ?>90 ?| ?Stage one ?| ? Normal ?+ -+ + -+| ?60-89 ?| ?Stage two ?| ? Decreased GFR ? + + +- +| ?30-59 ?| ?Stage three ?| ? Stage three ? + + +- +| ?15-29 ?| ?Stage four ? | ? Stage four ?+ -+ + -+| ?<15 (or dialysis) ? ?| ?Stage five ? | ? Stage five ?+ -+ + -+ *Each stage assumes the associated GFR level has been in effect for at least three months. ?Stages 1 to 5, with or without kidney disease, indicate chronic kidney disease. Notes: Determination of stages one and two (with eGFR >59mL/min/1.73 m2) requires estimation of kidney damage for at least three months as defined by structural or functional abnormalities of the kidney, manifested by either:Pathological abnormalities or Markers of kidney damage (including abnormalities in the composition of the blood or urine or abnormalities in imaging tests). [facility] WITH [id number] 20:11:38 Test Item Value Reference Range Interpretation Comments WBC (test code = See_Comment [Automated 2090-2) message] The sy stem which generated this result transmitted reference range : 4.30 - 11.10 10*3/?L. The reference range was not used to interpret this result as normal/abnormal . RBC (test code = See_Comment H [Automated 9-8) message] The sy stem which generated this result transmitted reference range : 3.93 - 5.25 10*6/?L. The reference range was not used to interpret this result as normal/abnormal . HGB (test code = 14.2 g/dL 11.6-15.0 718-7) HCT (test code = 43.7 % 35.7-45.2 4544-3) MCV (test code = 78.9 fL 80.6-95.5 L 787-2) MCH (test code = 25.6 pg 25.9-32.8 L 785-6) MCHC (test code = 32.5 g/dL 31.6-35.1 786-4) RDW-SD (test code = 48.9 fL 39.0-49.9 57897-3) RDW-CV (test code = 17.2 % 12.0-15.5 H 788-0) PLT (test code = See_Comment [Automated 777-3) message] The sy stem which generated this result transmitted reference range : 166 - 358 10*3/ ?L. The reference r colby was not used to interpret this result as normal/abnormal . MPV (test code = 10.1 fL 9.5-12.9 58371-0) NRBC/100 WBC (test See_Comment [Automat ed code = 7997344650) message] The system which generated this result transmitted reference range : 0.0 - 10.0 /100 WBCs. The refer ence range was not u sed to interpret th is result as normal/abnormal . NRBC x10^3 (test code See_Comment [Auto mated = 7979304031) message] The s ystem which generated this result transmitted reference range : 10*3/?L. The reference range was not used to interpret this result as normal/abnormal . GRAN MAT (NEUT) % 76.3 % (test code = 770-8) IMM GRAN % (test code 0.50 % = 7724005611) LYMPH % (test code = 14.1 % 736-9) MONO % (test code = 6.4 % 5905-5) EOS % (test code = 1.7 % 713-8) BASO % (test code = 1.0 % 706-2) GRAN MAT x10^3(ANC) 7.94 10*3/uL 1.88-7.09 H (test code = 7741422907) IMM GRAN x10^3 (test 0.05 10*3/uL 0.00-0.06 code = 5659956435) LYMPH x10^3 (test code 1.46 10*3/uL 1.32-3.29 = 731-0) MONO x10^3 (test code 0.66 10*3/uL 0.33-0.92 = 742-7) EOS x10^3 (test code = 0.18 10*3/uL 0.03-0.39 711-2) BASO x10^3 (test code 0.10 10*3/uL 0.01-0.07 H = 704-7) Lab Interpretation Abnormal (test code = 06741-8) [facility] [id number] 06:05:57 Test Item Value Reference Range Interpretation Comments SODIUM (BEAKER) 138 meq/L 136-145 (test code = 381) POTASSIUM 3.8 meq/L 3.5-5.1 (BEAKER) (test code = 379) CHLORIDE (BEAKER) 102 meq/L 98-107 (test code = 382) CO2 (BEAKER) 26 meq/L 22-29 (test code = 355) BLOOD UREA 19 mg/dL 7-21 NITROGEN (BEAKER) (test code = 354) CREATININE 0.67 mg/dL 0.57-1.25 (BEAKER) (test code = 358) GLUCOSE RANDOM 132 mg/dL 70-105 H (BEAKER) (test code = [...] not appl icable for dialysis patien ts Bucket [employer] Operator ID - PIJOVI LOperator ID - PIJOVI LCBC (HEMOGRAM ONLY)2022-03-12 05:32:20 Test Item Value [...] 0-0 (BEAKER) (test code = 413) CT, [id number] 09:26:00Unlisted Reason for Exam - Click Yes and Enter Reason Below->NoIs this for enterography?->NoWill this procedure require oral contrast?->Yes [facility] 2000 Sex: MFINAL [...] wall thickening likely reactive. Signed: Cira Dorado MDRepresearch psychiatric center Verified Date/Time: 03/11/2022 09:26:38 Reading Location: [address] Transitional Reading Room BASIC METABOLIC [id number] 06:38:12 Test Item Value Reference Range Interpretation [...] G3b Moderately to s everely 30-44 G4 Sever ly decreased 15-29 G5 Kidney failure <15Repo rted eGFR is based on the CKD-EPI 2020 equation t hat does not use a race coefficientEsti mated GFR is not as accur ate as Creatinine Kari hunter in predicting glom erular filtration rate . Estimated GFR is not appl icable for dialysis patien ts [employer] Operator ID - ADMINCBC W/PLT COUNT & AUTO [id number] 05:54:20 Test Item Value Reference Range Interpretation [...] = 2801) RAD, CHEST, 1 VIEW, NON [id number] 15:36:0015T[facility] 2000 Sex: MFINAL REPORT INDICATION: Picc line placement COMPARISON: 02/06/2022 TECHNIQUE: Single frontal view of the chest. FINDINGS: Lines, tubes, and devices: Right PICC tip overlies the superior vena cava. Lungs and pleura: Clear lungs. No pneumothorax.Heart and mediastinum: Normal heart size. Unremarkable mediastinal contours.Osseous structures: No acute abnormality.Other: None. IMPRESSION: Right PICC tip overlies the superior vena cava. Signed: Lew Garcia Verified Date/Time: 03/06/2022 15:36:20 Reading Location: [address] Reading Room CT, [id number] 09:42:00Pain. Hx LUQ collection assess for possible to drain now as well. [facility] 2000 Sex: [...] adrenal glands demonstrate no significant abnormalities. The spleenis prominent and contains multiple calcified granulomas, unchanged from the prior examination. Againidentified are air-fluid collections within the left upper [...] There is no evidence for nephrolithiasis or hydronephrosis.No ureteral stone or dilatation is appreciated. The urinary bladder demonstrates no significant abnormalities. The prostate is unremarkable. The abdominal aorta is normal course and caliber. The IVC isunremarkable. The portal venous system, SMV, and splenic vein remain patent. Please note evaluation of bowel is limited without the use of enteric contrast material. The visualized loops of small largebowel demonstrate no evidence of obstruction or inflammation. There is no ascites or peritoneal freeair. No abnormally enlarged lymph nodes are identified within the abdomen or pelvis. The osseous structures demonstrate no evidence for acute fracture or destructive process. Stable postsurgical changes noted of the midline anterior abdominal wall without evidence for organized fluid collection. The extraperitoneal soft tissues are unremarkable. IMPRESSION:No significant change in fluid collections within the left upper quadrant with largest component along the left subdiaphragmatic/gastrosplenic ligament region. Percutaneous access would be technically challenging and may not be possible given surrounding structures as detailed above. The largest component of the collection abuts the greater curva ture of the stomach. Consider GI consultation for possible endoscopic drainage if clinically indicated. Additional stable findings as above Signed: Bony Page MDReport Verified Date/Time: 209:42:02 [place], ASPIRATION/[id number] 16:11[facility]00[facility] : 2000 Sex: MFINAL [...] of approximately 3 cc of Isovue-300 contrast. Patch Finisher images saved in the patient's medical record. [...] of approximately 3 cc of Isovue-300 contrast. Patch Finisher images saved in the patient's medical record. [...] MDReport Verified Date/Time: 02/27/2022 16:11:07 Reading Location: [facility] B1 C013X Ortho Consult Reading Room MR, EXTREMITY, LOWER, HIP JOINT, WITHOUT CONTRAST, [id number] 15:21:00 [facility] : 2000 Sex: MFINAL REPORT MRI OF THE LEFT HIP HISTORY: Left hip pain, avascular necrosis, osteoarthritis COMPARISON: CT pelvis of 02/05/2022 TECHNIQUE: Multiplanar multisequence MRI of the left hip wasperformed without contrast. Examination included coronal large lexmk-sb-lbiw sequences of the pelvisand bilateral hips as well as dedicated small kpqmq-mb-jtia unilateral axial and sagittal oblique sequences of [...] MR, EXTREMITY, LOWER, HIP JOINT, WITHOUT CONTRAST, [id number] 15:17:00 [facility] : 2000 Sex: MFINAL REPORT MRI OF THE RIGHT HIP HISTORY: Right hip pain, avascular necrosis, arthritis COMPARISON: CT pelvis of 02/05/2022 TECHNIQUE: Multiplanar multisequence MRI of the right hip was performed without contrast. Examination included coronal large yvlmo-jw-puio sequences of the pelvis and bilateral hips as well as dedicated small yuzsd-mu-najt unilateral axial and sagittal oblique sequences of [...] Date/Time: 02/25/2022 15:17:32 RAD, HIPS, 2 VIEWS, [id number] 15:03:00 [facility] : 2000 Sex: MFINAL [...] MDReport Verified Date/Time: 02/24/2022 15:03:53 Reading Location: [facility] C013Y CT Body Reading Room - CT ABD PELVIS W/O CONT 2022-02-20 12:09:00 [facility] : 2000 Sex: M FAX: Willard Vaughn Jr [phone] [place]: St: REG Name: VANGIE OVALLE [facility] : 2000 Age/S: 22/M [address] Unit: [id number] Loc: [place] [address] Phys: Willard Crouch Jr, MD Acct: [id number] Dis Date: Status: REG CLI PHONE #: [phone] Exam Date: 02/20/2022 1115 FAX #: [phone] Reason: FREQUENT BM EXAMS: CPT CODE: [id number] CT ABD PELVIS W/O CONT 68463 EXAM: - CT ABD PELVIS W/O CONT [...] Statements: Lack of intravenous contrast diminishes sensitivity forevaluation of abdominopelvic organs and vasculature. Visualized chest: No significant abnormality seen. Hepatobiliary: Liver appears unremarkable. Gallbladder appears unremarkable. No intrahepatic or extrahepatic biliary dilatation is seen. Pancreas: Removal of surgical drains seen on the CT examination on 10/23/2021. Resolution interval significant decrease in the fluid in the abdomen, with 2 residualpockets in the left abdomen: Pocket of fluid seen in the left anterior abdomen on series 2, image 43measuring 3.5 x 1.9 cm, and additional pocket of fluid in the left lower quadrant on series 2, image8 measuring 5 x 3.2 cm. Spleen: Multiple calcified splenic granulomas noted. Small amount of stranding the left upper quadrant, decreased. Adrenal glands: Appear unremarkable. Kidneys: Appear unremarkable. Bowel: No bowel obstruction or ileus seen. Vascular: Aorta does not appear aneurysmal. Lymph nodes: No enlarged lymph nodes seen. Peritoneum: No ascites or free air is seen. PAGE 1 Signed Report (CONTINUED) FAX: Willard Vaughn Jr [phone] [place]: St: REG Name: YAMILE,[facility] : 2000 Age/S: 22/M [address] Unit: [id number] Loc: [place] [address] Phys: Willard Crouch Jr, MD Acct: [id number] Dis Date: Status: REG CLI PHONE #: [phone] Exam Date: 02/20/2022 1115 FAX #: Reason: FREQUENT BM EXAMS: CPT CODE: [id number] CT ABD PELVIS W/O CONT 74783 (Continued) Genitourinary:Urinary bladder appears to be mildly [...] Technologist: LAMBERTO SHAFFER Trnscrd Dt/Tm: 02/20/2022 (1209) [id number] PAGE 2 Signed Report DOUBLE-STRANDED DNA (DSDNA) [id number] 12:26:46 Test Item Value Reference Range Interpretation Comments ANTI-DNA DS (BEAKER) (test code = Negative Negative 1055) Anaerobic [id number] 09:53:02 Test Item Value Reference Range Interpretation Comments Result (test code = No anaerobes isolated 6463-4) [facility] [id number] 09:53:02 Test Item Value Reference Range Interpretation Comments Result (test code = No anaerobes isolated 6463-4) [facility] [id number] 09:53:02 Test Item Value Reference Range Interpretation Comments CULTURE (BEAKER) (test No anaerobes isolated code = 1095) COMPLEMENT COMPONENT [id number] 13:18:38 Test Item Value Reference Range Interpretation Comments C3 COMPLEMENT (BEAKER) (test code = 103 mg/dL 82-193 393) Bucket Wash Operator ID - AAHAMIDCOMPLEMENT COMPONENT [id number] 13:18:37 Test Item Value Reference Range Interpretation Comments C4 COMPLEMENT (BEAKER) (test code = 11 mg/dL 15-57 L 394) Bucket Wash Operator ID - AAHAMIDSURGICALLY OBTAINED CULTURE + GRAM [id number] 11:03:20 Test Item Value Reference Range Interpretation [...] No organisms seen (BEAKER) (test code = 611649) [id number] 06:37:27 Test Item Value Reference Range Interpretation Comments PHOSPHORUS (BEAKER) (test code = 3.5 mg/dL 2.3-4.7 604) Bucket Wash Operator ID - PIAYA LBASIC METABOLIC [id number] 06:37:26 Test Item Value Reference Range Interpretation [...] not appl icable for dialysis patien ts Bucket Wash Operator ID - MARIBEL [id number] 06:37:26 Test Item Value Reference Range Interpretation Comments MAGNESIUM (BEAKER) (test code = 1.5 mg/dL 1.6-2.6 L 627) Bucket Wash Operator ID - MARIBEL LCBC W/PLT COUNT & AUTO [id number] 05:01:09 Test Item Value Reference Range Interpretation [...] (BEAKER) (test code = 2801) BASIC METABOLIC [id number] 06:02:45 Test Item Value Reference Range Interpretation [...] not appl icable for dialysis patien ts Bucket Wash Operator ID - ALVINA MCBC W/PLT COUNT & AUTO [id number] 05:42:07 Test Item Value Reference Range Interpretation [...] = 2801) CBC W/PLT COUNT & AUTO [id number] 05:09:33 Test Item Value Reference Range Interpretation [...] 0-1 PERCENT (BEAKER) (test code = 2801) [id number] 04:56:25 Test Item Value Reference Range Interpretation Comments MAGNESIUM (BEAKER) (test code = 1.6 mg/dL 1.6-2.6 627) Bucket Wash Operator ID - PIAYA [id number] 04:56:25 Test Item Value Reference Range Interpretation Comments PHOSPHORUS (BEAKER) (test code = 2.7 mg/dL 2.3-4.7 604) Bucket Wash Operator ID - PIAYA LBASIC METABOLIC [id number] 04:56:24 Test Item Value Reference Range Interpretation [...] not appl icable for dialysis patien ts Bucket Wash Operator ID - MARIBEL [id number] 10:33:28 Test Item Value Reference Range Interpretation Comments PHOSPHORUS (BEAKER) (test code = 3.0 mg/dL 2.3-4.7 604) Bucket Wash Operator ID - ALVINA MBASIC METABOLIC [id number] 10:33:27 Test Item Value Reference Range Interpretation [...] not appl icable for dialysis patien ts Bucket Wash Operator ID - ALVINA [id number] 10:33:27 Test Item Value Reference Range Interpretation Comments MAGNESIUM (BEAKER) (test code = 1.7 mg/dL 1.6-2.6 627) Bucket Wash Operator ID - ALVINA MCBC W/PLT COUNT & AUTO [id number] 10:29:43 Test Item Value Reference Range Interpretation [...] 0-1 PERCENT (BEAKER) (test code = 2801) SPIN/CONCENTRATION [id number] 06:56:34 Test Item Value Reference Range Interpretation Comments Concentration charged (test code = Done 6077) [facility] [id number] 06:56:34 Test Item Value Reference Range Interpretation Comments Concentration charged (test code = Done 2650) [facility] [id number] 06:56:34 Test Item Value Reference Range Interpretation Comments CONCENTRATION CHARGED (BEAKER) (test Done code = 2657) SARS-CoV2/RT-PCR (Asymptomatic ONLY)2022-02-07 12:35:45 Test Item Value Reference Range Interpretation Comments SARS-COV2/RT-PCR Negative Not Detected, (test code = Negative, See 53118-8) external report for linked test SARS-COV-2 [facility] PERFORMING LAB (test code = 47408-3) IDALIA (test code = Negative result for [...] of the Act. Fact Sheet for Healthcare Providers:https://www.RunTitle/sites/default/f anup/product/documents/F act_Sheet_HC_Providers_L aqj_MZVK-TyI-2.pdf Fact Sheet for Healthcare Patients:https://www.Mimosa [employer]/sites/default/fi les/product/documents/Fa ct_Sheet_Patients_Lyra_S ARS-CoV-2.pdf Performing Laboratory:[facility], [place] [address] [place], [place] [address]ARS-CoV2/RT-PCR (Asymptomatic ONLY)2022-02-07 12:35:45 Test Item Value Reference Range Interpretation Comments SARS-COV2/RT-PCR Negative Not Detected, (test code = Negative, See 30553-9) external report for linked test SARS-COV-2 [facility] PERFORMING LAB (test code = 33426-3) IDALIA (test code = Negative result for [...] of the Act. Fact Sheet for Healthcare Providers:https://www.RunTitle/sites/default/f anup/product/documents/F act_Sheet_HC_Providers_L msk_ALHT-UdA-5.pdf Fact Sheet for Healthcare Patients:https://www.M[employer]/sites/default/fi les/product/documents/Fa ct_Sheet_Patients_Lyra_S ARS-CoV-2.pdf Performing Laboratory:[facility] [place], [place] [address]lori [facility].[place], [place] [address] [place], [place] [address]ARS-COV2/RT-PCR ([facility])2022-02-07 12:35:45 Test Item Value Reference Range Interpretation Comments SARS-COV2/RT-PCR (test Negative Not Detected, Negative, code = 8798243) See external report for linked test SARS-COV-2 PERFORMING LAB [facility] (test code = 1459379) Negative result for this test determines that [...] of the Act.Fact Sheet for Healthcare Prov iders:https://www.[employer].Floxx/sites/default/files/product/documents/Fact_Sheet_HC _Rcrdsktju_Njmr_LILG-GjH-1.pdfFact Sheet for Healthcare Patients:https://www.[employer].Floxx/sites/default/files/product/docume nts/Tixn_Hcnbw_Yhdcqzaa_Swfg_OJAM-GhG-5.pdfPerforming Laboratory:[facility], [place] [id number] 05:26:59 Test Item Value Reference Range Interpretation Comments MAGNESIUM (BEAKER) (test code = 1.7 mg/dL 1.6-2.6 627) Bucket Wash Operator ID - ALVINA [id number] 05:26:59 Test Item Value Reference Range Interpretation Comments PHOSPHORUS (BEAKER) (test code = 3.3 mg/dL 2.3-4.7 604) Bucket Wash Operator ID - ALVINA MBASIC METABOLIC [id number] 05:26:58 Test Item Value Reference Range Interpretation [...] not appl icable for dialysis patien ts Bucket Wash Operator ID - ALVINA MPROTHROMBIN TIME/[id number] 04:21:01 Test Item Value Reference Range Interpretation Comments PROTIME (BEAKER) 14.9 seconds 11.9-14.2 H (test code = 759) INR (BEAKER) (test 1.24 See_Comment [Automat ed message] code = 370) The system [employer] generated this result transmitted ref erence range: <=5.90. The reference range was not used to int erpret this result as normal/abnormal . RECOMMENDED COUMADIN/WARFARIN INR THERAPY RANGESSTANDARD DOSE: 2.0 - 3.0 Includes: PROPHYLAXIS for venous thrombosis, systemic embolization; TREATMENT for venous thrombosis and/or pulmonary embolus.HIGH RISK: Target INR is 2.5-3.5 for patients with mechanical heart valves.CBC W/PLT COUNT & AUTO [id number] 04:04:31 Test Item Value Reference Range Interpretation [...] = 2801) RAD, CHEST, 1 VIEW, NON [id number] 19:52:00Reason for exam:->post picc line insertionShould this be performed at the bedside?->Yes [facility] : 2000 Sex: MFINAL REPORT History: post [...] no acute bony abnormality. Signed: Miles Alicia MDRepresearch psychiatric center Verified Date/Time: 02/06/2022 19:52:18 CT, [id number] 11:33:00Unlisted Reason for Exam - Click Yes and Enter Reason Below->NoIs this for enterography?->NoWill this procedure require oral contrast?->No [facility] : 2000 Sex: MFINAL REPORT CT, ABDOMEN [...] degenerative changes of the left hip with scng-ai-zkww and mild bony remodeling. IMPRESSION: 1.Minimal change [...] Manish Novak Verified Date/Time: 02/05/2022 11:33:01 Reading Location:[facility] B1 C013Y CT Body Reading Room MAGNESIUM 2022-02-05 05:39:00 Test Item Value Reference Range Interpretation Comments MAGNESIUM (BEAKER) (test code = 1.6 mg/dL 1.6-2.6 627) Bucket Wash Operator ID - PIAYA [id number] 05:39:00 Test Item Value Reference Range Interpretation Comments PHOSPHORUS (BEAKER) (test code = 2.5 mg/dL 2.3-4.7 604) Bucket Wash Operator ID - PIAYA LBASIC METABOLIC [id number] 05:38:59 Test Item Value Reference Range Interpretation [...] not appl icable for dialysis patien ts Bucket Wash Operator ID - PIAYA LCBC W/PLT COUNT & AUTO [id number] 04:47:57 Test Item Value Reference Range Interpretation [...] PERCENT (BEAKER) (test code = 2801) POC-Glucose [id number] 07:40:25 Test Item Value Reference Range Interpretation Comments POC-Glucose Meter (test 153 mg/dL 70-110 H : TE STED AT [facility] code = 1538) [address] [facility], [address]: Bucket Wash Operator/Techni dakota ID = [id number] for AMANDA KAYRINA Lab Interpretation (test Abnormal code = 36769-0) [facility]-Glucose [id number] 07:40:25 Test Item Value Reference Range Interpretation Comments POC-Glucose Meter (test 153 mg/dL 70-110 H : TE STED AT [facility] code = 1538) [address] [facility], [address] 30: Bucket Wash Operator/Techni dakota ID = [id number] for RAHUL, CONCEPCION Lab Interpretation (test Abnormal code = 55950-3) [facility]-GLUCOSE [id number] 07:40:25 Test Item Value Reference Range Interpretation Comments POC-GLUCOSE METER 153 mg/dL 70-110 H : TESTED A T [facility] 6720 (BEAKER) (test code = DONNA [place] [facility], 1538) [address]: Bucket Wash Operator/Techni dkaota ID = [id number] for NIRANJAN CORONADOA [id number] 05:56:41 Test Item Value Reference Range Interpretation Comments PHOSPHORUS (BEAKER) (test code = 3.4 mg/dL 2.3-4.7 604) Bucket Wash Operator ID - ALVINA MBASIC METABOLIC [id number] 05:56:40 Test Item Value Reference Range Interpretation [...] G3b Moderately to s everely 30-44 G4 Sever ly decreased 15-29 G5 Kidney failure <15Repo rted eGFR is based on the CKD-EPI 2020 equation t hat does not use a race coefficientEsti mated GFR is not as accur ate as Creatinine Kari hunter in predicting glom erular filtration rate . Estimated GFR is not appl icable for dialysis patien ts Bucket Wash Operator ID - ALVINA MCBC W/PLT COUNT & AUTO [id number] 05:19:20 Test Item Value Reference Range Interpretation [...] PERCENT (BEAKER) (test code = 2801) POCT-GLUCOSE [id number] 18:17:28 Test Item Value Reference Range Interpretation Comments POC-GLUCOSE METER 119 mg/dL 70-110 H : TESTED A T [facility] 6720 (BEAKER) (test code = FREDORAVINDRA [place] [facility], 1538) [address]: Bucket Wash Operator/Techni dakota ID = [id number] for Melia Navarro, FLUORO, NON-SPECIFIC, UP TO 1 [id number] 12:15:00Reason for exam:- >Pancreatitis with fluid collection [facility] : 2000 Sex: MAn imaging unit was utilized for this procedure. No radiologist interpretation was requested. Refer to the EMR for findings. Refer to PACS for any patient radiation dose information.[id number] 06:20:54 Test Item Value Reference Range Interpretation Comments PHOSPHORUS (BEAKER) (test code = 4.1 mg/dL 2.3-4.7 604) Bucket Wash Operator ID - BSBASIC METABOLIC [id number] 06:20:53 Test Item Value Reference Range Interpretation [...] not appl icable for dialysis patien ts Bucket Wash Operator ID - BSCBC W/PLT COUNT & AUTO [id number] 06:17:18 Test Item Value Reference Range Interpretation [...] PERCENT (BEAKER) (test code = 2801) PROTHROMBIN TIME/[id number] 05:56:55 Test Item Value Reference Range Interpretation Comments PROTIME (GENEVA) 14.6 seconds 11.9-14.2 H (test code = 759) INR (GENEVA) (test 1.21 See_Comment [Automat ed message] code = 370) The system [employer] generated this result transmitted ref erence range: <=5.90. The reference range was not used to int erpret this result as normal/abnormal . RECOMMENDED COUMADIN/WARFARIN INR THERAPY RANGESSTANDARD DOSE: 2.0 - 3.0 Includes: PROPHYLAXIS for venous thrombosis, systemic embolization; TREATMENT for venous thrombosis and/or pulmonary embolus.HIGH RISK: Target INR is 2.5-3.5 for patients with mechanical heart valves.SARS-COV2/RT-PCR ([facility]) 2022-02-01 11:35:08 Test Item Value Reference Range Interpretation Comments SARS-COV2/RT-PCR Negative Negative The SARS-Co V-2 target (test code = nucleic acids a re not 4398872) detected in thi s specimen. Negative result [...] revoked sooner. Fact Sheet for Healthcare Providers: https://www.cepheid.co m/Documents/Xpert%20Xpress%20SARS%20CoV-2/Fact%20Sheets/302-3802%99GJED-AZB-0%20 HEALTHCARE%20PROVIDERS%20FACT%20SHEET.pdf Fact Sheet for Healthcare Patients: https://www.Naviswiss/Documents/Xpert%20Xp ress%20SARS%20CoV-2/Fact%20Sheets/302-3801%54FDAS-BFK-5%20PATIENT%20FACT%20SHEET .[id number] 08:00:14 Test Item Value Reference Range Interpretation Comments PHOSPHORUS (BEAKER) (test code = 3.9 mg/dL 2.3-4.7 604) Bucket Wash Operator ID - PIAYA LBASIC METABOLIC [id number] 08:00:13 Test Item Value Reference Range Interpretation [...] G3b Moderately to s everely 30-44 G4 Sever ly decreased 15-29 G5 Kidney failure <15Repo rted eGFR is based on the CKD-EPI 2020 equation t hat does not use a race coefficientEsti mated GFR is not as accur ate as Creatinine Kari harrison in predicting glom erular filtration rate . Estimated GFR is not appl icable for dialysis patien ts Bucket Wash Operator ID - PIAYA LCBC W/PLT COUNT & AUTO [id number] 06:53:15 Test Item Value Reference Range Interpretation [...] PERCENT (BEAKER) (test code = 2801) PROTHROMBIN TIME/[id number] 06:23:20 Test Item Value Reference Range Interpretation Comments PROTIME (BEAKER) 14.1 seconds 11.9-14.2 (test code = 759) INR (BEAKER) (test 1.16 See_Comment [Automat ed message] code = 370) The system [employer] generated this result transmitted ref erence range: <=5.90. The reference range was not used to int erpret this result as normal/abnormal . RECOMMENDED COUMADIN/WARFARIN INR THERAPY RANGESSTANDARD DOSE: 2.0 - 3.0 Includes: PROPHYLAXIS for venous thrombosis, systemic embolization; TREATMENT for venous thrombosis and/or pulmonary embolus.HIGH RISK: Target INR is 2.5-3.5 for patients with mechanical heart valves.CT, [id number] 11:26:00Unlisted Reason for Exam - Click Yes and Enter Reason Below->NoIs this for enterography?->NoWill this procedure require oral contrast?->Yes [facility] : 2000 Sex: MFINAL REPORT ABDOMINAL AND PELVIS CT DATED 01/31/2022 COMPARISON: [...] 9.9 cm. No focal lesion is seen inthe liver. Calcified granulomas are seen in the spleen. Gallbladder is contracted. No gallstone or biliary dilatation is noted. There is persistent to inflammatory changes adjacent to the body and tailof the pancreas and left Gerota's fascia. A 2.6 x 6.8 cm air-fluid collection is seen in the gastrosplenic region, previously 2.9 x 7.1 cm. Previously noted pigtail drainage catheter in the right flankhas been removed. There is minimal soft tissue stranding involving the right anterior Gerota's fascia. Both kidneys are normal in size and functioning. No hydronephrosis, hydroureter, urolithiasis is seen. The small and large bowel are unremarkable. Appendix is not visualized. Prostate is normal in size. The urinary bladder is contracted. No ascites is present. IMPRESSION: 1. Hepatosplenomegaly with calcified granulomas in the spleen.2. Persistent soft tissue stranding/inflammation adjacent to the body and tail of the pancreas and bilateral Gerota's fascia.3. Minimal interval decrease in size of the air-fluid collection at the gastrolienal ligament. Signed: Gokul Youngepresearch psychiatric center Verified Date/Time:01/31/2022 11:26:33 Reading Location: [facility] C013Y CT Body Reading Room BASIC METABOLIC [id number] 07:01:22 Test Item Value Reference Range Interpretation [...] not appl icable for dialysis patien ts Bucket Wash Operator ID - ALVINA [id number] 07:01:21 Test Item Value Reference Range Interpretation Comments PHOSPHORUS (BEAKER) 3.6 mg/dL 2.3-4.7 Specimen slightly (test code = 604) hemolyzed Bucket Wash Operator ID - ALVINA MCBC W/PLT COUNT & AUTO [id number] 06:23:58 Test Item Value Reference Range Interpretation [...] H PERCENT (BEAKER) (test code = 2801) [id number] 07:03:32 Test Item Value Reference Range Interpretation Comments PHOSPHORUS (BEAKER) 3.5 mg/dL 2.3-4.7 Specimen slightly (test code = 604) hemolyzed Bucket Wash Operator ID - PIAYA LBASIC METABOLIC [id number] 07:03:32 Test Item Value Reference Range Interpretation [...] not appl icable for dialysis patien ts Bucket Wash Operator ID - PIAYA LCBC W/PLT COUNT & AUTO [id number] 06:30:07 Test Item Value Reference Range Interpretation [...] H PERCENT (BEAKER) (test code = 2801) [id number] 08:28:15 Test Item Value Reference Range Interpretation Comments PHOSPHORUS (BEAKER) 3.5 mg/dL 2.3-4.7 Specimen slightly (test code = 604) hemolyzed Bucket Wash Operator BEATRIZ SWANN WBASIC METABOLIC [id number] 05:22:30 Test Item Value Reference Range Interpretation [...] not appl icable for dialysis patien ts Bucket Wash Operator ID - SHREE WCBC W/PLT COUNT & AUTO [id number] 04:54:08 Test Item Value Reference Range Interpretation [...] (BEAKER) (test code = 2801) BASIC METABOLIC [id number] 15:33:00 Test Item Value Reference Range Interpretation [...] De scription 1092) sq m Result G1 Norm al or high >=90 G2 Mildly decreased 60-89 [...] not appl icable for dialysis patien ts Bucket Wash Operator ID - [id number] 15:32:59 Test Item Value Reference Range Interpretation Comments PHOSPHORUS (BEAKER) 2.1 mg/dL 2.3-4.7 L Specimen slightly (test code = 604) hemolyzed Bucket Wash Operator ID - MITCHCBC W/PLT COUNT & AUTO [id number] 15:08:06 Test Item Value Reference Range Interpretation [...] PERCENT (BEAKER) (test code = 2801) SARS-COV2/RT-PCR ([facility])2022-01-27 12:45:59 Test Item Value Reference Range Interpretation Comments SARS-COV2/RT-PCR Negative Negative The SARS-Co V-2 target (test code = nucleic acids a re not 9375096) detected in thi s specimen. Negative result [...] revoked sooner. Fact Sheet for Healthcare Providers: https://www.cepheid.co m/Documents/Xpert%20Xpress%20SARS%20CoV-2/Fact%20Sheets/302-3802%17NVPO-OPF-0%20 HEALTHCARE%20PROVIDERS%20FACT%20SHEET.pdf Fact Sheet for Healthcare Patients: https://www.Naviswiss/Documents/Xpert%20Xp ress%20SARS%20CoV-2/Fact%20Sheets/302-3801%15TIPG-AWF-3%20PATIENT%20FACT%20SHEET .pdfCOMPREHENSIVE METABOLIC [id number] 09:49:55 Test Item Value Reference Range Interpretation [...] not appl icable for dialysis patien ts Bucket Wash Operator ID - ALVINA MOperator ID - ALVINA [id number] 09:45:42 Test Item Value Reference Range Interpretation Comments MAGNESIUM (BEAKER) (test code = 1.6 mg/dL 1.6-2.6 627) Bucket Wash Operator ID - ALVINA [id number] 09:45:42 Test Item Value Reference Range Interpretation Comments PHOSPHORUS (BEAKER) (test code = 2.2 mg/dL 2.3-4.7 L 604) Bucket Wash Operator ID - ALVINA MCBC W/PLT COUNT & AUTO [id number] 06:05:25 Test Item Value Reference Range Interpretation [...] code = 2801) RAD, KNEE, 3 VIEWS, [id number] 14:50:00Is this procedure to be performed with weight bearing?->Non-Weight BearingReason for exam:->knee pain [facility] : 2000 Sex: MFINAL REPORT RAD, KNEE, 3 VIEWS, RIGHT CLINICAL INDICATION: knee pain COMPARISON: NoneFINDINGS: 3views of the right knee. There is no fracture or malalignment. Moderate joint space narrowing in the femorotibial spaces. No joint fluid is demonstrated. Surrounding soft tissues are unremarkable. IMPRESSION: No acute fracture or malalignment of the knee Signed: Lew Garcia Verified Date/Time: 01/26/2022 14:50:13 Reading Location: [address] Reading Room RAD, KNEE, 3 VIEWS, [id number] 14:00:00Is this procedure to be performed with weight bearing?->Non-Weight BearingReason for exam:->knee pain [facility] : 2000 Sex: MFINAL [...] knee2.Small suprapatellar joint effusion. Signed: Lew Garcia Verified Date/Time: 01/26/2022 14:00:42 Reading Location: [address] Reading Room ANTI-DNA [id number] 12:29:53 Test Item Value Reference Range Interpretation Comments ANTI-DNA TITER (BEAKER) (test code = :160 1553) DOUBLE-STRANDED DNA (DSDNA) [id number] 12:29:42 Test Item Value Reference Range Interpretation Comments ANTI-DNA DS (BEAKER) (test code = Positive Negative 1055) COMPLEMENT COMPONENT [id number] 12:26:40 Test Item Value Reference Range Interpretation Comments C3 COMPLEMENT (BEAKER) (test code = 55 mg/dL 82-193 L 393) Bucket Wash Operator ID - TANYA MCOMPLEMENT COMPONENT [id number] 12:26:39 Test Item Value Reference Range Interpretation Comments C4 COMPLEMENT (BEAKER) (test code = 6 mg/dL 15-57 L 394) Bucket Wash Operator ID - TANYA MHEMOGLOBIN [id number] 09:30:34 Test Item Value Reference Range Interpretation Comments HEMOGLOBIN A1C 5.0 % See_Comment [Automated m essage] ELECTROPHORESIS (BEAKER) [...] 5.7- 6.4% indicates increased risk for diabetes (prediabetes)."Bucket Wash Operator ID - [id number] 07:56:27 Test Item Value Reference Range Interpretation Comments MAGNESIUM (BEAKER) (test code = 1.9 mg/dL 1.6-2.6 627) Bucket Wash Operator ID - ALVINA [id number] 07:56:27 Test Item Value Reference Range Interpretation Comments PHOSPHORUS (BEAKER) (test code = 3.5 mg/dL 2.3-4.7 604) Bucket Wash Operator ID - ALVINA MCOMPREHENSIVE METABOLIC [id number] 07:56:26 Test Item Value Reference Range Interpretation [...] not appl icable for dialysis patien ts Bucket Wash Operator ID - ALVINA MCBC W/PLT COUNT & AUTO [id number] 06:42:48 Test Item Value Reference Range Interpretation [...] PERCENT (BEAKER) (test code = 2801) Urinalysis w/[id number] 01:12:24 Test Item Value Reference Range Interpretation Comments Color, UA (test code Yellow = 5778-6) Clarity, UA (test Clear code = 5767-9) Specific [place], UA 1.017 1.001-1.035 (test code = 5811-5) pH, UA (test code = 6.0 5.0-8.0 5803-2) Protein, UA (test Negative Negative code = 26034-0) Glucose, UA (test Negative Negative code = 365) Ketones, UA (test Trace Negative A code = 2514-8) Bilirubin, UA (test Negative Negative code = 07076-0) Blood, UA (test code Negative Negative = 70096-5) Nitrite, UA (test Negative Negative code = 5802-4) Leukocytes, UA (test Negative Negative code = 5799-2) Urobilinogen, UA 3.0 mg/dL 0.2-1.0 H (test code = 86554-5) RBC, UA (test code = 1 See_Comment [Autom ated 73664-0) message] The system which generated this result [...] Bacteria, UA (test None Seen code = 69932-9) Mucus (test code = Few 8247-9) Crystals, Urine (test Rare code = 22393-1) Specimen Source (test code = 2795) IDALIA (test code = IDALIA) Bucket Wash Operator ID - [auto]Bucket Wash Operator ID - tech Lab Interpretation Abnormal (test code = 09179-8) [facility]inal[facility] w/[id number] 01:12:24 Test Item Value Reference Range Interpretation Comments Color, UA (test code Yellow = 5778-6) Clarity, UA (test Clear code = 5767-9) Specific [place], UA 1.017 1.001-1.035 (test code = 5811-5) pH, UA (test code = 6.0 5.0-8.0 5803-2) Protein, UA (test Negative Negative code = 98395-7) Glucose, UA (test Negative Negative code = 365) Ketones, UA (test Trace Negative A code = 2514-8) Bilirubin, UA (test Negative Negative code = 99805-2) Blood, UA (test code Negative Negative = 46919-2) Nitrite, UA (test Negative Negative code = 5802-4) Leukocytes, UA (test Negative Negative code = 5799-2) Urobilinogen, UA 3.0 mg/dL 0.2-1.0 H (test code = 78031-4) RBC, UA (test code = 1 See_Comment [Autom ated 29016-2) message] The system which generated this result [...] Bacteria, UA (test None Seen code = 05800-2) Mucus (test code = Few 8247-9) Crystals, Urine (test Rare code = 67221-5) Specimen Source (test code = 2795) IDALIA (test code = IDALIA) Bucket Wash Operator ID - [auto]Bucket Wash Operator ID - tech Lab Interpretation Abnormal (test code = 77368-4) [facility] W/ [id number] 01:12:24 Test Item Value Reference Range Interpretation [...] = 1521) SOURCE(BEAKER) (test code = 2795) Bucket Wash Operator ID - [auto]Bucket Wash Operator ID - techPROTHROMBIN TIME/[id number] 11:13:08 Test Item Value Reference Range Interpretation Comments PROTIME (BEAKER) 16.0 seconds 11.9-14.2 H (test code = 759) INR (BEAKER) (test 1.37 See_Comment [Automat ed message] code = 370) The system [employer] generated this result transmitted ref erence range: <=5.90. The reference range was not used to int erpret this result as normal/abnormal . RECOMMENDED COUMADIN/WARFARIN INR THERAPY RANGESSTANDARD DOSE: 2.0 - 3.0 Includes: PROPHYLAXIS for venous thrombosis, systemic embolization; TREATMENT for venous thrombosis and/or pulmonary embolus.HIGH RISK: Target INR is 2.5-3.5 for patients with mechanical heart valves.HEPATIC FUNCTION [id number] 08:23:09 Test Item Value Reference Range Interpretation [...] Specimen slightly (test code = 347) hemolyzed Bucket Wash Operator ID - ALVINA [id number] 08:20:14 Test Item Value Reference Range Interpretation Comments PHOSPHORUS (BEAKER) 4.9 mg/dL 2.3-4.7 H Specimen slightly (test code = 604) hemolyzed Bucket Wash Operator ID - ALVINA [id number] 08:20:14 Test Item Value Reference Range Interpretation Comments MAGNESIUM (BEAKER) 1.5 mg/dL 1.6-2.6 L Specimen slightly (test code = 627) hemolyzed Bucket Wash Operator ID - ALVINA MLACTIC ACID, [id number] 07:47:42 Test Item Value Reference Range Interpretation Comments LACTATE BLOOD VENOUS 1.04 mmol/L 0.50-2.20 Specime n slightly (2) (BEAKER) (test hemolyzed code = 9052) Bucket Wash Operator ID - ALVINA MBASIC METABOLIC [id number] 07:28:57 Test Item Value Reference Range Interpretation [...] G3b Moderately to s everely 30-44 G4 Sever ly decreased 15-29 G5 Kidney failure <15Repo rted eGFR is based on the CKD-EPI 2021 equation t hat does not use a race coefficientEsti mated GFR is not as accur ate as Creatinine Kari harrison in predicting glom erular filtration rate . Estimated GFR is not appl icable for dialysis patien ts Bucket Wash Operator ID - ALVINA [id number]/[id number] 07:01:08 Test Item Value Reference Range Interpretation [...] mechanical heart valves.CBC W/PLT COUNT & AUTO [id number] 06:52:58 Test Item Value Reference Range Interpretation [...] Not Detected, (test code = Negative, See 64639-1) external report for linked test SARS-COV-2 [facility] PERFORMING LAB (test code = 70193-7) IDALIA (test code = Negative result for [...] of the Act. Fact Sheet for Healthcare Providers:https://www.[employer]/sites/default/f anup/product/documents/F act_Sheet_HC_Providers_L lvw_TUUP-VnC-8.pdf Fact Sheet for Healthcare Patients:https://www.[employer]/sites/default/fi les/product/documents/Fa ct_Sheet_Patients_Lyra_S ARS-CoV-2.pdf Performing Laboratory:[facility], [place] [address] [place], [place] [address]ARS-COV2/RT-PCR ([facility])2021-12-25 10:50:35 Test Item Value Reference Range Interpretation Comments SARS-COV2/RT-PCR (test Negative Not Detected, Negative, code = 7664492) See external report for linked test SARS-COV-2 PERFORMING LAB [facility] (test code = 0207315) Negative result for this test determines that [...] of the Act.Fact Sheet for Healthcare Prov iders:https://www.[employer]/sites/default/files/product/documents/Fact_Sheet_HC _Zvgjwckjv_Gvao_MABP-XfJ-1.pdfFact Sheet for Healthcare Patients:https://www.[employer]/sites/default/files/product/docume nts/Bzqg_Vhvre_Eosnbzvu_Bhir_TEJP-TfO-9.pdfPerforming Laboratory:[facility], [place] [address]ZDJGB METABOLIC PANEL 2021-12-25 05:39:15 Test Item Value [...] not appl icable for dialysis patien ts Bucket Wash Operator ID - PIAYA LCBC W/PLT COUNT & AUTO [id number] 04:50:53 Test Item Value Reference Range Interpretation [...] (BEAKER) (test code = 2801) BASIC METABOLIC [id number] 04:18:37 Test Item Value Reference Range Interpretation [...] not appl icable for dialysis patien ts Bucket Wash Operator ID - ALVINA MCBC W/PLT COUNT & AUTO [id number] 04:02:11 Test Item Value Reference Range Interpretation [...] (BEAKER) (test code = 2801) BASIC METABOLIC [id number] 03:48:40 Test Item Value Reference Range Interpretation [...] not appl icable for dialysis patien ts Bucket Wash Operator ID - BSCBC W/PLT COUNT & AUTO [id number] 03:25:33 Test Item Value Reference Range Interpretation [...] (BEAKER) (test code = 2801) COMPLEMENT COMPONENT [id number] 05:12:57 Test Item Value Reference Range Interpretation Comments C3 COMPLEMENT (BEAKER) (test code = 58 mg/dL 82-193 L 393) Bucket Wash Operator ID - PIAYA LCOMPLEMENT COMPONENT [id number] 05:12:56 Test Item Value Reference Range Interpretation Comments C4 COMPLEMENT (BEAKER) (test code = 5 mg/dL 15-57 L 394) Bucket Wash Operator ID - PIAYA LBASIC METABOLIC [id number] 04:43:01 Test Item Value Reference Range Interpretation [...] not appl icable for dialysis patien ts Bucket Wash Operator ID - ALVINA M-CBC W/PLT COUNT & AUTO [id number] 04:23:52 Test Item Value Reference Range Interpretation [...] (BEAKER) (test code = 2801) BASIC METABOLIC [id number] 06:45:19 Test Item Value Reference Range Interpretation [...] not appl icable for dialysis patien ts Bucket Wash Operator ID - PIAYA LCBC W/PLT COUNT & AUTO [id number] 06:29:46 Test Item Value Reference Range Interpretation [...] PERCENT (BEAKER) (test code = 2801) CT, [id number] 15:01:00Unlisted Reason for Exam - Click Yes and Enter Reason Below->Nointraabdominal abscessesIs this for enterography?->NoWill this procedure require oral contrast?->Yes [facility] : 2000 Sex: MFINAL REPORT [...] [place] MDReportVerified Date/Time: 12/20/2021 15:01:52 Reading Location: [facility] C013X Ortho Consult Reading Room Jelly ctronically signed by: NEVIN HADLEY M.D. on 12/20/2021 03:01 PMBASIC METABOLIC [id number] 06:08:38 Test Item Value Reference Range Interpretation [...] not appl icable for dialysis patien ts Bucket Wash Operator ID - BISI [id number] 06:08:38 Test Item Value Reference Range Interpretation Comments MAGNESIUM (BEAKER) (test code = 1.7 mg/dL 1.6-2.6 627) Bucket Wash Operator ID - BISI GCBC W/PLT COUNT & AUTO [id number] 05:55:13 Test Item Value Reference Range Interpretation [...] 0-1 PERCENT (BEAKER) (test code = 2801) [id number] 05:57:20 Test Item Value Reference Range Interpretation Comments MAGNESIUM (BEAKER) (test code = 1.8 mg/dL 1.6-2.6 627) Bucket Wash Operator ID - PIAYA LBASIC METABOLIC [id number] 05:57:19 Test Item Value Reference Range Interpretation [...] not appl icable for dialysis patien ts Bucket Wash Operator ID - PIAYA LCBC W/PLT COUNT & AUTO [id number] 05:05:06 Test Item Value Reference Range Interpretation [...] 0-1 PERCENT (BEAKER) (test code = 2801) [id number] 05:14:32 Test Item Value Reference Range Interpretation Comments MAGNESIUM (BEAKER) (test code = 1.6 mg/dL 1.6-2.6 627) Bucket Wash Operator ID - DBBASIC METABOLIC [id number] 05:14:31 Test Item Value Reference Range Interpretation [...] not appl icable for dialysis patien ts Bucket Wash Operator ID - DBCBC W/PLT COUNT & AUTO [id number] 04:29:19 Test Item Value Reference Range Interpretation [...] PERCENT (BEAKER) (test code = 2801) SARS-COV2/RT-PCR ([facility])2021-12-18 02:02:45 Test Item Value Reference Range Interpretation Comments SARS-COV2/RT-PCR (test Negative Not Detected, Negative, code = 7296257) See external report for linked test SARS-COV-2 PERFORMING LAB [facility] (test code = 5106387) Negative result for this test determines that [...] of the Act.Fact Sheet for Healthcare Prov iders:https://www.[employer]/sites/default/files/product/documents/Fact_Sheet_HC _Cotdnfyqe_Wlwu_WVJW-LvZ-4.pdfFact Sheet for Healthcare Patients:https://www.[employer]/sites/default/files/product/docume nts/Ktam_Edmzn_Ufckqliq_Apvq_OAKW-HlR-9.pdfPerforming Laboratory:[facility], [place] [address]FRWINBNN KINASE (CK) 2021-12-17 07:03:15 Test Item Value Reference Range Interpretation Comments CREATINE KINASE TOTAL (BEAKER) (test < U/L 29-200 L code = 380) Bucket Wash Operator ID - BISI GBASIC METABOLIC [id number] 06:48:47 Test Item Value Reference Range Interpretation [...] not appl icable for dialysis patien ts Bucket Wash Operator ID - BISI [id number] 06:48:47 Test Item Value Reference Range Interpretation Comments MAGNESIUM (BEAKER) (test code = 1.7 mg/dL 1.6-2.6 627) Bucket Wash Operator ID - BISI GCBC W/PLT COUNT & AUTO [id number] 06:18:24 Test Item Value Reference Range Interpretation [...] (BEAKER) (test code = 2801) HEPATIC FUNCTION [id number] 05:37:52 Test Item Value Reference Range Interpretation [...] (test code = 22 U/L 6-55 347) Bucket Wash Operator ID - ALVINA MBASIC METABOLIC [id number] 05:37:51 Test Item Value Reference Range Interpretation [...] not appl icable for dialysis patien ts Bucket Wash Operator ID - ALVINA [id number] 05:37:51 Test Item Value Reference Range Interpretation Comments MAGNESIUM (BEAKER) (test code = 1.8 mg/dL 1.6-2.6 627) Bucket Wash Operator ID - ALVINA MCBC W/PLT COUNT & AUTO [id number] 05:19:35 Test Item Value Reference Range Interpretation [...] code = 2801) WOUND CULTURE + GRAM [id number] 15:11:36 Test Item Value Reference Range Interpretation [...] d message] code = 143) The system [employer] generated this result transmitted ref erence range: Suscepti ble 0-2 , Dose Depe ndent Susceptible <0 or >2 , Resi. The ref erence range was not u sed to interpret this result as normal/abnor mal. Itraconazole (test See_Comment S [Automat ed message] code = 146) The system [employer] generated this result transmitted ref erence range: Suscepti ble 0-0.125 , Dose Dependent Susce ptible <0 or >.125. Th e reference range was not used to int erpret this result as normal/abnormal . Micafungin (test See_Comment S [Automated message] code = 148) The system [employer] generated this result transmitted ref erence range: Suscepti ble 0-0.25 , Non-susceptible <0 or >.25 , Resistan t . The reference r colby was not used to interpret this result as normal/abnor mal. Posaconazole (test See_Comment [Automat ed message] code = 152) The system [employer] generated this result transmitted ref erence range: Suscepti ble >0-0 , No Interpretations Established <=0 or >0 . The reference range was not used to interpret this result as normal/abnor mal. Voriconazole (test See_Comment S [Automat ed message] code = 153) The system [employer] generated this result transmitted ref erence range: [...] d message] code = 143) The system [employer] generated this result transmitted ref erence range: Suscepti ble 0-0 , Dose Depe ndent Susceptible <0 or >0 , Resi. The ref erence range was not u sed to interpret this result as normal/abnor mal. Itraconazole (test See_Comment [Automat ed message] code = 146) The system [employer] generated this result transmitted ref erence range: Suscepti ble 0-0.125 , Dose Dependent Susce ptible <0 or >.125. Th e reference range was not used to int erpret this result as normal/abnormal . Micafungin (test See_Comment S [Automated message] code = 148) The system [employer] generated this result transmitted ref erence range: Suscepti ble 0-0.06 , Non-susceptible <0 or >.06 , Resistan t . The reference r colby was not used to interpret this result as normal/abnor mal. Posaconazole (test See_Comment [Automat ed message] code = 1522) The system [employer] generated this result transmitted ref erence range: Suscepti ble >0-0 , No Interpretations Established <=0 or >0 . The reference range was not used to interpret this result as normal/abnor mal. Voriconazole (test See_Comment [Automat ed message] code = 153) The system [employer] generated this result transmitted ref erence range: Suscepti ble >0-0 , Dose Dep endent Susceptible <=0 or >0 , No. The refer ence range was not u sed to interpret this result as normal/abnor mal. GRAM STAIN RESULT 4+ WBCs (BEAKER) (test code = 1123) GRAM STAIN RESULT <1+ budding (BEAKER) (test code yeast = 569803) [id number] 13:41:55 Test Item Value Reference Range Interpretation Comments MAGNESIUM (BEAKER) 1.6 mg/dL 1.6-2.6 Specimen slightly (test code = 627) hemolyzed Bucket Wash Operator ID - BSBASIC METABOLIC [id number] 13:41:55 Test Item Value Reference Range Interpretation [...] G3b Moderately to s everely 30-44 G4 Sever ly decreased 15-29 G5 Kidney failure <15Repo rted eGFR is based on the CKD-EPI 2020 equation t hat does not use a race coefficientEsti mated GFR is not as accur ate as Creatinine Kari harrison in predicting glom erular filtration rate . Estimated GFR is not appl icable for dialysis patien ts Bucket Wash Operator ID - BSCBC (HEMOGRAM ONLY)2021-12-15 12:10:46 Test [...] = 413) RAD, CHEST, 1 VIEW, NON [id number] 11:09:00Reason for exam:->PICC tip location verification.Should this be performed at the bedside?->[facility] 2000 Sex: MFINAL REPORT CLINICAL HISTORY:PICC tip location verification. TECHNIQUE: 1 view of thechest. COMPARISON: 09/28/2021 IMPRESSION: The tip of the right PICC line is at the cavoatrial junction. There are no focal infiltrates or effusions. The cardiomediastinal silhouette is within normal limits for size. Signed: Darcie Williamson Verified Date/Time: 12/15/2021 11:09:16 Reading Location: [facility] Radiology Reading Room [id number] 07:04:44 Test Item Value Reference Range Interpretation Comments MAGNESIUM (BEAKER) (test code = 1.8 mg/dL 1.6-2.6 627) Bucket Wash Operator ID - SHREE T, [id number] 13:51:00Unlisted Reason for Exam - Click Yes and Enter Reason Below->NoIs this for enterography?->NoWill this procedure require oral contrast?->No [facility] : 2000 Sex: MFINAL [...] MDReport Verified Date/Time: 12/14/2021 13:51:31 Reading Location: [facility] Diagnostic Imaging Reading Room - [place] [address] Electronicallysigned by: ROBERT FIGUEROA MD on 12/14/2021 01:51 PMANTI-DNA [id number] 12:28:11 Test Item Value Reference Range Interpretation Comments ANTI-DNA TITER (BEAKER) (test code = :80 1553) DOUBLE-STRANDED DNA (DSDNA) [id number] 12:27:59 Test Item Value Reference Range Interpretation Comments ANTI-DNA DS (BEAKER) (test code = Positive Negative 1055) CBC W/PLT COUNT & AUTO [id number] 06:03:24 Test Item Value Reference Range Interpretation [...] code = 2801) CT, DRAINAGE W/ CATH [id number] 12:21:00Reason for exam:->undrained fluid collections in abdomen [facility] : 2000 Sex: MFINAL REPORT CT guided drainage catheter placement, 12/11/2021 Clinical History: Right-sided abdominal fluid collection. Modality: CT. Internship: Shira. Shoe Stitcher: None. Sedation: Versed 1 mg and fentanyl [...] was achieved with 1% lidocaine, a 5 Peruvian one-step catheter was advanced into the fluid collection under CT guidance. Aspiration was attempted through this catheter, but only a small amount of fluid could be obtained. After a small skin incision was made, a guidewire was advanced into the fluid collection. Subsequently, a soft tissue tract was created with 8 Peruvian dilator. After the tract was dilated, an 8 Peruvian all-purpose drainage catheter was placed into the fluid collection. The wire wasthen removed, and the pigtail of the catheter was locked. Approximately 8 cc of thick purulent fluid was drained. The fluid was sent for laboratory analysis. Evaluation of the area after the procedure reveals the catheter pigtail to terminate within the collection, which has decreased in size. The catheter was then secured onto the skin with suture. A BRODY bulb was attached to the catheter, to drain via suction. The patient tolerated the procedure well, without immediate complications. The patient's vital signs remained stable throughout the procedure. Patient disposition: The patient was discharged from the department in stable condition. Impression: Successful and uncomplicated CT guided drainage catheter placement into right abdominal fluid collection, with conscious sedation. Signed: Juaquin Oliva Verified Date/Time: 12/13/2021 12:21:52 Reading Location: [facility] Mammo Reading Room BASI METABOLIC [id number] 08:39:36 Test Item Value Reference Range Interpretation [...] S NOT APPLICABLE FOR DIALYSIS PATIEN TS. Bucket Wash Operator ID - [id number] 08:39:36 Test Item Value Reference Range Interpretation Comments MAGNESIUM (BEAKER) (test code = 1.7 mg/dL 1.6-2.6 627) Bucket Wash Operator ID - BSPOC-Glucose [id number] 07:42:54 Test Item Value Reference Range Interpretation Comments POC-Glucose Meter (test 128 mg/dL 70-110 H : TE STED AT [facility] code = 1538) [address] [facility], [address]: Bucket Wash Operator/Techni dakota ID = [id number] for [facility] Lab Interpretation (test Abnormal code = 34313-3) [facility] [id number] 07:42:54 Test Item Value Reference Range Interpretation Comments POC-GLUCOSE METER 128 mg/dL 70-110 H : TESTED A T [facility] [address] (BEAKER) (test code = [place] [facility], 1538) [address]: Bucket Wash Operator/Techni dakota ID = [id number] for [facility] BLOOD [id number] 15:01:19 Test Item Value Reference Range Interpretation Comments CULTURE (BEAKER) (test No growth in 5 days code = 1095) BLOOD [id number] 15:01:19 Test Item Value Reference Range Interpretation [...] code C. di fficile GDH Toxin: = 8537738) NegativeC. diff icile GDH Antigen: Negati veKit Lot: [id number] Date : 08/22/2023 c [id number] 12:27:53Scan ResultComment: C. difficile GDH Toxin: NegativeC. difficile GDH Antigen: Negative Kit Lot: [id number] Date: [facility]23[facility] [id number] 12:27:53Scan ResultComment: C. difficile GDH Toxin: NegativeC. difficile GDH Antigen: Negative Kit Lot: [id number] Date: 08/22/2023[facility] [id number] 12:27:53Scan ResultComment: C. difficile GDH Toxin: NegativeC. difficile GDH Antigen: Negative Kit Lot: [id number] Date: 08/22/2023[facility] [id number] 07:18:15 Test Item Value Reference Range Interpretation [...] S NOT APPLICABLE FOR DIALYSIS PATIEN TS. Bucket Wash Operator ID - SHREE [id number] 07:18:14 Test Item Value Reference Range Interpretation Comments MAGNESIUM (BEAKER) 1.7 mg/dL 1.6-2.6 Specimen slightly (test code = 627) hemolyzed Bucket Wash Operator ID - SHREE WCBC W/PLT COUNT & AUTO [id number] 06:48:11 Test Item Value Reference Range Interpretation [...] PERCENT (BEAKER) (test code = 2801) SARS-COV2/RT-PCR ([facility])2021-12-11 08:51:50 Test Item Value Reference Range Interpretation Comments SARS-COV2/RT-PCR (test Negative Not Detected, Negative, code = 5550478) See external report for linked test SARS-COV-2 PERFORMING LAB [facility] (test code = 1951978) Negative result for this test determines that [...] of the Act.Fact Sheet for Healthcare Prov iders:https://www.[employer]/sites/default/files/product/documents/Fact_Sheet_HC _Rbaynbfvc_Uuxr_COBL-HaG-0.pdfFact Sheet for Healthcare Patients:https://www.[employer]/sites/default/files/product/docume nts/Nmlh_Desgf_Anvyxonk_Fcyc_YZSJ-UlK-9.pdfPerforming Laboratory:[facility] [facility] [facility] [place] [address]ATXYS METABOLIC PANEL 2021-12-11 07:32:42 Test Item Value [...] S NOT APPLICABLE FOR DIALYSIS PATIEN TS. Bucket Wash Operator ID - PIJOVI [id number] 07:32:42 Test Item Value Reference Range Interpretation Comments MAGNESIUM (BEAKER) (test code = 1.7 mg/dL 1.6-2.6 627) Bucket Wash Operator ID - MARIBEL LCT, [id number] 13:47:00Unlisted Reason for Exam - Click Yes and Enter Reason Below->NoIs this for enterography?->NoWill this procedure require oral contrast?->No [facility] 2000 Sex: MFINAL [...] Fatty infiltrationof the liver. Signed: Andrés Holloway MDRort Verified Date/Time: 12/10/2021 13:47:19 [id number] 08:22:12 Test Item Value Reference Range Interpretation Comments MAGNESIUM (BEAKER) (test code = 1.5 mg/dL 1.6-2.6 L 627) Bucket Wash Operator ID - SHREE WBASIC METABOLIC [id number] 08:22:11 Test Item Value Reference Range Interpretation [...] S NOT APPLICABLE FOR DIALYSIS PATIEN TS. Bucket Wash Operator ID - SHREE WCBC W/PLT COUNT & AUTO [id number] 05:53:31 Test Item Value Reference Range Interpretation [...] 0-1 PERCENT (BEAKER) (test code = 2801) [id number] 05:50:23 Test Item Value Reference Range Interpretation Comments MAGNESIUM (BEAKER) (test code = 1.8 mg/dL 1.6-2.6 627) Bucket Wash Operator ID - BISI GBASIC METABOLIC [id number] 05:50:22 Test Item Value Reference Range Interpretation [...] S NOT APPLICABLE FOR DIALYSIS PATIEN TS. Bucket Wash Operator ID - BISI GCOMPLEMENT COMPONENT [id number] 05:47:38 Test Item Value Reference Range Interpretation Comments C3 COMPLEMENT (BEAKER) (test code = 34 mg/dL 82-193 L 393) Bucket Wash Operator ID - MARIBEL LCOMPLEMENT COMPONENT [id number] 05:47:37 Test Item Value Reference Range Interpretation Comments C4 COMPLEMENT (BEAKER) (test code = 6 mg/dL 15-57 L 394) Bucket Wash Operator ID - MARIBEL LPROTHROMBIN TIME/[id number] 05:32:34 Test Item Value Reference Range Interpretation Comments PROTIME (BEAKER) 16.8 seconds 11.9-14.2 H (test code = 759) INR (BEAKER) (test 1.39 See_Comment [Automat ed message] code = 370) The system ic h generated this result transmitted ref erence range: <=5.90. The reference range was not used to int erpret this result as normal/abnormal . RECOMMENDED COUMADIN/WARFARIN INR THERAPY RANGESSTANDARD DOSE: 2.0 - 3.0 Includes: PROPHYLAXIS for venous thrombosis, systemic embolization; TREATMENT for venous thrombosis and/or pulmonary embolus.HIGH RISK: Target INR is 2.5-3.5 for patients with mechanical heart valves.Urinalysis w/Deqjneebyaj1849-61-49 00:48:22 Test Item Value Reference Range Interpretation Comments Color, UA (test code Yellow = 5778-6) Clarity, UA (test Clear code = 5767-9) Specific [place], UA 1.023 1.001-1.035 (test code = 5811-5) pH, UA (test code = 6.5 5.0-8.0 5803-2) Protein, UA (test Negative Negative code = 52210-2) Glucose, UA (test 50 mg/dL Negative A code = 365) Ketones, UA (test Trace Negative A code = 2514-8) Bilirubin, UA (test Negative Negative code = 51142-3) Blood, UA (test code Negative Negative = 37212-5) Nitrite, UA (test Negative Negative code = 5802-4) Leukocytes, UA (test Trace Negative A code = 5799-2) Urobilinogen, UA 0.2 mg/dL 0.2-1.0 (test code = 92420-7) RBC, UA (test code = 2 See_Comment [Autom ated 67892-8) message] The system which generated this result [...] . Bacteria, UA (test Moderate code = 64391-8) Mucus (test code = Occasional 8247-9) Hyaline Casts, UA 4 See_Comment [Automate d (test code = 21437-9) messag e] The system which generated this result transmitted reference range : /LPF. The reference range was not used to interpret this result as normal/abnormal . Crystals, Urine (test None Seen code = 59723-4) Specimen Source (test code = 2795) IDALIA (test code = IDALIA) Bucket Wash Operator ID - [auto]Bucket Wash Operator ID - tech Lab Interpretation Abnormal (test code = 29277-1) [facility]/ [id number] 00:48:22 Test Item Value Reference Range Interpretation [...] = 1521) SOURCE(BEAKER) (test code = 2795) Bucket Wash Operator ID - [auto]Bucket Wash Operator ID - techProtein, random [id number] 23:18:26 Test Item Value Reference Range Interpretation Comments Protein, Urine (test code 21 mg/dL 0-14 H = 2888-6) IDALIA (test code = IDALIA) Bucket Wash Operator ID - MARIBEL L Lab Interpretation (test Abnormal code = 85277-4) [facility] StanfordProtein, random [id number] 23:18:26 Test Item Value Reference Range Interpretation Comments Protein, Urine (test code 21 mg/dL 0-14 H = 2888-6) IDALIA (test code = IDALIA) Bucket Wash Operator ID - MARIBEL L Lab Interpretation (test Abnormal code = 40155-8) [facility] StanfordProtein, random [id number] 23:18:26 Test Item Value Reference Range Interpretation Comments Protein, Urine (test code 21 mg/dL 0-14 H = 2888-6) IDALIA (test code = IDALIA) Bucket Wash Operator ID - MARIBEL L Lab Interpretation (test Abnormal code = 75116-6) [facility] StanfordPROTEIN, RANDOM [id number] 23:18:26 Test Item Value Reference Range Interpretation Comments PROTEIN, URINE (BEAKER) (test code = 21 mg/dL 0-14 H 1569) Bucket Wash Operator ID Cherelle LÓPEZ LCreatinine, random [id number] 23:18:25 Test Item Value Reference Range Interpretation Comments Creatinine, Ur 99.7 mg/dL (test code = 2161-8) IDALIA (test code = Reference Range: No IDALIA) NormalsOperator ID - MARIBEL L [facility] StanfordCreatinine, random [id number] 23:18:25 Test Item Value Reference Range Interpretation Comments Creatinine, Ur 99.7 mg/dL (test code = 2161-8) IDALIA (test code = Reference Range: No IDALIA) NormalsOperator ID - MARIBEL L [facility] StanfordCreatinine, random [id number] 23:18:25 Test Item Value Reference Range Interpretation Comments Creatinine, Ur 99.7 mg/dL (test code = 2161-8) IDALIA (test code = Reference Range: No IDALIA) NormalsOperator ID - MARIBEL L [facility] StanfordCREATININE, RANDOM [id number] 23:18:25 Test Item Value Reference Range Interpretation Comments CREATININE URINE (BEAKER) (test 99.7 mg/dL code = 375) Reference Range: No NormalsOperator ID - MARIBEL LPOCT-GLUCOSE [id number] 10:32:21 Test Item Value Reference Range Interpretation Comments POC-GLUCOSE METER 110 mg/dL 70-110 : TESTED A T [facility] 6720 (BEAKER) (test code = [place], 1538) [address]: Bucket Wash Operator/Techni dakota ID = [id number] for QUEEN HONEYCUTT HEMOGLOBIN [id number] 10:26:45 Test Item Value Reference Range Interpretation Comments HEMOGLOBIN A1C 5.3 % See_Comment [Automated m essage] ELECTROPHORESIS (BEAKER) The system which (test code = 3811) generated this result transmitted ref erence range: <=5.6%. The reference range was not used to int erpret this result as normal/abnormal . "The A1c is measured using a NGS-certified method. HbA1c value equal to or greater than 6.5% as thediagnosis cutoff for diabetes. An HbA1c value of 5.7- 6.4% indicates increased risk for diabetes (prediabetes)."Bucket Wash Operator ID - ADM HEPATIC FUNCTION [id number] 10:19:31 Test Item Value Reference Range Interpretation [...] Specimen slightly (test code = 347) hemolyzed Bucket Wash Operator ID - MARIBEL LBASIC METABOLIC [id number] 10:19:30 Test Item Value Reference Range Interpretation [...] S NOT APPLICABLE FOR DIALYSIS PATIEN TS. Bucket Wash Operator ID - MARIBEL LLIPID [id number] 10:19:30 Test Item Value Reference Range Interpretation Comments TRIGLYCERIDES (BEAKER) 97 mg/dL Speci men slightly (test code = 540) hemolyzed CHOLESTEROL (BEAKER) 75 mg/dL Specime n slightly (test code = 631) hemolyzed HDL CHOLESTEROL (BEAKER) 13 mg/dL (test code = 976) LDL CHOLESTEROL 43 mg/dL CALCULATED (BEAKER) (test code = 633) Triglyceride Reference Range: Low Risk <150 Borderline 150-199 High Risk 200-499 Very High Risk >=500Cholesterol Reference Range: Low Risk <200 Borderline 200-239 High Risk >240HDL Cholesterol Reference Range: Low Risk >=60 High Risk <40LDL Cholesterol Reference Range: Optimal <100 Near Optimal 100-129 Borderline 130-159 High 160-189 Very High >=190 Bucket Wash Operator ID - PIJOVI [id number] 10:19:29 Test Item Value Reference Range Interpretation Comments MAGNESIUM (BEAKER) 1.5 mg/dL 1.6-2.6 L Specimen slightly (test code = 627) hemolyzed Bucket Wash Operator ID - MARIBEL [id number] 10:19:29 Test Item Value Reference Range Interpretation Comments PHOSPHORUS (BEAKER) 3.9 mg/dL 2.3-4.7 Specimen slightly (test code = 604) hemolyzed Bucket Wash Operator ID - PIAYA LCBC W/PLT COUNT & AUTO [id number] 06:19:38 Test Item Value Reference Range Interpretation [...] (BEAKER) (test code = 2801) COMPREHENSIVE METABOLIC [id number] 14:20:15 Test Item Value Reference Range Interpretation [...] S NOT APPLICABLE FOR DIALYSIS PATIEN TS. Bucket Wash Operator ID - MARIBEL [id number] 14:20:15 Test Item Value Reference Range Interpretation Comments LIPASE (BEAKER) (test code = 749) 8 U/L 8-78 Bucket Wash Operator ID - MARIBEL NEGRONACTIC ACID, [id number] 14:16:12 Test Item Value Reference Range Interpretation Comments LACTATE BLOOD VENOUS 1.09 mmol/L 0.50-2.20 Specime n slightly (2) (BEAKER) (test hemolyzed code = 2872) Bucket Wash Operator ID - MARIBEL [id number] 14:09:56 Test Item Value Reference Range Interpretation Comments PARTIAL THROMBOPLASTIN TIME 28.8 seconds 22.5-36.0 (BEAKER) (test code = 760) PROTHROMBIN [id number] 14:09:14 Test Item Value Reference Range Interpretation Comments PROTIME (BEAKER) 16.6 seconds 11.9-14.2 H (test code = 759) INR (BEAKER) (test 1.37 See_Comment [Automat ed message] code = 370) The system [employer] generated this result transmitted ref erence range: <=5.90. The reference range was not used to int erpret this result as normal/abnormal . RECOMMENDED COUMADIN/WARFARIN INR THERAPY RANGESSTANDARD DOSE: 2.0 - 3.0 Includes: PROPHYLAXIS for venous thrombosis, systemic embolization; TREATMENT for venous thrombosis and/or pulmonary embolus.HIGH RISK: Target INR is 2.5-3.5 for patients with mechanical heart valves.CBC W/PLT COUNT & AUTO [id number] 14:03:40 Test Item Value Reference Range Interpretation [...] PERCENT (BEAKER) (test code = 2801) POCT-GLUCOSE [id number] 13:55:45 Test Item Value Reference Range Interpretation Comments POC-GLUCOSE METER 86 mg/dL 70-110 : TESTED A T [facility] 6720 (BEAKER) (test code = [place], 1538) [address]: Bucket Wash Operator/Techni dakota ID = [id number] for Jose [employer] culture + smear (non-sputum)2021-11-16 10:41:32 Test Item Value Reference Range Interpretation Comments Result (test code = No acid-fast bacilli 6463-4) isolated in 42 days AFB Smear (test code = No acid fast bacilli 48384-4) seen [facility]AF[facility] + smear (non-sputum)2021-11-16 10:41:32 Test Item Value Reference Range Interpretation Comments Result (test code = No acid-fast bacilli 6463-4) isolated in 42 days AFB Smear (test code = No acid fast bacilli 87916-0) seen [facility] Stanford[facility] culture + smear (non-sputum)2021-11-16 10:41:32 Test Item Value Reference Range Interpretation Comments Result (test code = No acid-fast bacilli 6463-4) isolated in 42 days AFB Smear (test code = No acid fast bacilli 85230-2) seen [facility] CULTURE + SMEAR (NON-SPUTUM)2021-11-16 10:41:32 Test Item Value Reference Range Interpretation Comments CULTURE (BEAKER) (test No acid-fast bacilli code = 1095) isolated in 42 days AFB SMEAR (BEAKER) No acid fast bacilli (test code = 994) seen Fungus culture + [id number] 17:16:53 Test Item Value Reference Range Interpretation Comments Result (test code = No fungus isolated in 6463-4) 28 days Fungus Smear (test No fungi seen code = 1406) [facility] StanfordFung[facility] culture + [id number] 17:16:53 Test Item Value Reference Range Interpretation Comments Result (test code = No fungus isolated in 6463-4) 28 days Fungus Smear (test No fungi seen code = 1406) [facility] StanfordFung[facility] culture + [id number] 17:16:53 Test Item Value Reference Range Interpretation Comments Result (test code = No fungus isolated in 6463-4) 28 days Fungus Smear (test No fungi seen code = 1406) [facility] StanfordFUN[facility] CULTURE + [id number] 17:16:53 Test Item Value Reference Range Interpretation Comments CULTURE (BEAKER) (test No fungus isolated in code = 1095) 28 days FUNGUS SMEAR (BEAKER) No fungi seen (test code = 1406) - CT ABDOMEN W W/O [id number] 15:32:00 [facility] 2000 Sex: M FAX: Y Willard Crouch Jr [phone] [place]: St: REG Name: VANGIE OVALLE [facility] : 2000 Age/S: 21/M [address] Unit: [id number] Loc: [place] [address] Phys: Willard Crouch Jr, MD Acct: [id number] Dis Date: Status: REG CLI PHONE #: [phone] Exam Date: 10/23/2021 [facility] FAX #: [phone] Reason: ABDOMINAL ABSCESSES EXAMS: CPT CODE: [id number] CT ABDOMEN W W/O CONTRAST 79211 EXAMINATION: - CT ABDOMEN W W/O CONTRAST [...] Signed Report (CONTINUED) FAX: Willard Vaughn Jr [phone] [place] : St: REG -- Name: VANGIE OVALLE [facility] : 2000 Age/S: 21/M [address] Unit: [id number] Loc: [place] [address] Phys: Willard Crouch Jr, MD Acct: [id number] Dis Date: Status: REG CLI PHONE #: [phone] Exam Date: 10/23/2021 1445 FAX #: [phone] Reason: ABDOMINAL ABSCESSES EXAMS: CPT CODE: [id number] CT ABDOMEN W W/O CONTRAST 95801 (Continued) Imaged lower chest demonstrates mild bibasilar atelectasis. No acute osseous abnormality identified. IMPRESSION: Following interval drain placements, overall quantity of air-fluid collections has partially improved. at 1532 Reported and signed by: Sabas Grey MD CC: Willard Crouch Jr Technologist: DORENE WHITTAKER, RT(R,CT); MATTY CLINTON Trnscrd Dt/Tm: 10/23/2021 (1532) AmnaPE1 Orig Print D/T: S: 10/23/2021 (1536 PAGE 2 Signed ReportPOCT-GLUCOSE [id number] 12:03:00 Test Item Value Reference Range Interpretation Comments POC-GLUCOSE METER 147 mg/dL 70-110 H : TESTED A T [facility] 6720 (BEAKER) (test code = FREDO[place], 1538) [address]: Bucket Wash Operator/Techni dakota ID = [id number] for Roberto Carlos Singh POCT-GLUCOSE [id number] 07:25:56 Test Item Value Reference Range Interpretation Comments POC-GLUCOSE METER 108 mg/dL 70-110 : TESTED A T [facility] 6720 (BEAKER) (test code = [facility] [place] [facility], 1538) [address]: Bucket Wash Operator/Techni dakota ID = [id number] for Ob Saritha walker [id number] 06:30:28 Test Item Value Reference Range Interpretation Comments PHOSPHORUS (BEAKER) (test code = 3.1 mg/dL 2.3-4.7 604) Bucket Wash Operator ID - DBHEPATIC FUNCTION [id number] 06:30:28 Test Item Value Reference Range Interpretation [...] (test code = 9 U/L 6-55 347) Bucket Wash Operator ID - DBBASIC METABOLIC [id number] 06:30:27 Test Item Value Reference Range Interpretation [...] S NOT APPLICABLE FOR DIALYSIS PATIEN TS. Bucket Wash Operator ID - [id number] 06:30:27 Test Item Value Reference Range Interpretation Comments MAGNESIUM (BEAKER) (test code = 1.6 mg/dL 1.6-2.6 627) Bucket Wash Operator ID - DBCBC W/PLT COUNT & AUTO [id number] 06:18:45 Test Item Value Reference Range Interpretation [...] PERCENT (BEAKER) (test code = 2801) POCT-GLUCOSE [id number] 22:04:31 Test Item Value Reference Range Interpretation Comments POC-GLUCOSE METER 148 mg/dL 70-110 H : TESTED A T [facility] 6720 (BEAKER) (test code = [facility], 153) [address]: Bucket Wash Operator/Techni dakota ID = [id number] for JOANN RANDOLPH POCT-GLUCOSE [id number] 17:21:06 Test Item Value Reference Range Interpretation Comments POC-GLUCOSE METER 231 mg/dL 70-110 H : TESTED A T [facility] 6720 (BEAKER) (test code = [facility], 153) [address]: Bucket Wash Operator/Techni dakota ID = [id number] for ERNST FRANCOIS Anaerobic [id number] 13:55:46 Test Item Value Reference Range Interpretation Comments Result (test code = No anaerobes isolated 6463-4) [facility] [id number] 13:55:46 Test Item Value Reference Range Interpretation Comments CULTURE (BEAKER) (test No anaerobes isolated code = 1095) BASIC METABOLIC [id number] 12:01:25 Test Item Value Reference Range Interpretation [...] S NOT APPLICABLE FOR DIALYSIS PATIEN TS. Bucket Wash Operator ID - ALVINA EPATIC FUNCTION [id number] 12:01:25 Test Item Value Reference Range Interpretation [...] (test code = 9 U/L 6-55 347) Bucket Wash Operator ID - ALVINA MOperator ID - ALVINA [id number] 12:01:24 Test Item Value Reference Range Interpretation Comments PHOSPHORUS (BEAKER) (test code = 3.8 mg/dL 2.3-4.7 604) Bucket Wash Operator ID - ALVINA [id number] 12:01:19 Test Item Value Reference Range Interpretation Comments MAGNESIUM (BEAKER) (test code = 1.5 mg/dL 1.6-2.6 L 627) Bucket Wash Operator ID - ALVINA MPOCT-GLUCOSE [id number] 11:54:19 Test Item Value Reference Range Interpretation Comments POC-GLUCOSE METER 110 mg/dL 70-110 : TESTED A T [facility] 6720 (BEAKER) (test code = [place], 1538) [address]: Bucket Wash Operator/Techni dakota ID = [id number] for [place] LLIS, ERNST CBC W/PLT COUNT & AUTO [id number] 11:25:49 Test Item Value Reference Range Interpretation [...] PERCENT (BEAKER) (test code = 2801) POCT-GLUCOSE [id number] 09:39:11 Test Item Value Reference Range Interpretation Comments POC-GLUCOSE METER 87 mg/dL 70-110 : TESTED A T [facility] 6720 (BEAKER) (test code = [place], 1538) [address]: Bucket Wash Operator/Techni dakota ID = [id number] for DELMAR IYER SARS-COV2/RT-PCR ([facility])2021-10-09 04:10:06 Test Item Value Reference Range Interpretation Comments SARS-COV2/RT-PCR (test Negative Not Detected, Negative, code = 4248686) See external report for linked test SARS-COV-2 PERFORMING LAB [facility] SHAUNA (test code = 7654025) Negative result for this test determines that [...] of the Act.Fact Sheet for Healthcare Prov iders:https://www.[employer]/sites/default/files/product/documents/Fact_Sheet_HC _Gyclxcuwr_Qbcd_MJIS-HaG-5.pdfFact Sheet for Healthcare Patients:https://www.[employer]/sites/default/files/product/docume nts/Haqk_Dsisx_Susjzmzt_Yxby_YPZZ-CyO-5.pdfPerforming Laboratory:[address], [place] [address]BAQK-OOQVDLZ METER 2021-10-08 20:41:51 Test Item Value Reference Range Interpretation Comments POC-GLUCOSE METER 102 mg/dL 70-110 : Notified RN/MD: [facility] (test code = TESTED AT [facility] 6720 1538) [facility], [address]: Bucket Wash Operator/Techni dakota ID = [id number] for HEATH GRANDE POCT-GLUCOSE [id number] 17:43:36 Test Item Value Reference Range Interpretation Comments POC-GLUCOSE METER 93 mg/dL 70-110 : TESTED A T [facility] 6720 ([facility]) (test code = [facility]ENTERRAVINDRA [place] [facility], 1538) [address]: Bucket Wash Operator/Techni dakota ID = [id number] for Bhag jewel, Rajashree POCT-GLUCOSE [id number] 12:09:22 Test Item Value Reference Range Interpretation Comments POC-GLUCOSE METER 93 mg/dL 70-110 : TESTED A T [facility] 6720 (BEAKER) (test code = DONNA [place] [facility], 1538) [address]: Bucket Wash Operator/Techni dakota ID = [id number] for Tequila holloway, Mercy POCT-GLUCOSE [id number] 08:51:46 Test Item Value Reference Range Interpretation Comments POC-GLUCOSE METER 95 mg/dL 70-110 : TESTED A T [facility] 6720 (BEAKER) (test code = DONNA [place] [facility], 1538) [address]: Bucket Wash Operator/Techni dakota ID = [id number] for Tequila jewel, Umeshree [id number] 05:23:25 Test Item Value Reference Range Interpretation Comments PHOSPHORUS (BEAKER) (test code = 3.1 mg/dL 2.3-4.7 604) Bucket Wash Operator ID - PIAYA LHEPATIC FUNCTION [id number] 05:23:25 Test Item Value Reference Range Interpretation [...] (test code = 11 U/L 6-55 347) Bucket Wash Operator ID - PIAYA LBASIC METABOLIC [id number] 05:23:24 Test Item Value Reference Range Interpretation [...] S NOT APPLICABLE FOR DIALYSIS PATIEN TS. Bucket Wash Operator ID - MARIBEL [id number] 05:23:24 Test Item Value Reference Range Interpretation Comments MAGNESIUM (BEAKER) (test code = 1.4 mg/dL 1.6-2.6 L 627) Bucket Wash Operator ID - MARIBEL LCBC W/PLT COUNT & AUTO [id number] 04:49:36 Test Item Value Reference Range Interpretation [...] PERCENT (BEAKER) (test code = 2801) POCT-GLUCOSE [id number] 21:40:30 Test Item Value Reference Range Interpretation Comments POC-GLUCOSE METER 135 mg/dL 70-110 H : TESTED A T [facility] 6720 (BEAKER) (test code = [facility], 153) [address]: Bucket Wash Operator/Techni dakota ID = [id number] for MARTINE VASQUEZ POCT-GLUCOSE [id number] 16:34:48 Test Item Value Reference Range Interpretation Comments POC-GLUCOSE METER 177 mg/dL 70-110 H : TESTED A T [facility] 6720 (BEAKER) (test code = [facility], 153) [address]: Bucket Wash Operator/Techni dakota ID = [id number] for FAY NEGRONIA, POCT-GLUCOSE [id number] 11:09:04 Test Item Value Reference Range Interpretation Comments POC-GLUCOSE METER 156 mg/dL 70-110 H : TESTED A T [facility] 6720 (BEAKER) (test code = [facility], 153) [address]: Bucket Wash Operator/Techni dakota ID = [id number] for FAY LLIAMS, ANNISTON POCT-GLUCOSE [id number] 07:50:39 Test Item Value Reference Range Interpretation Comments POC-GLUCOSE METER 69 mg/dL 70-110 L : TESTED Daphne T [facility] 6720 (BEAKER) (test code = [place], 1538) [address]: Bucket Wash Operator/Techni dakota ID = [id number] for QUEEN JACOBSEN HEPATIC FUNCTION [id number] 04:46:43 Test Item Value Reference Range Interpretation [...] (test code = 11 U/L 6-55 347) Bucket Wash Operator ID - ALVINA [id number] 04:46:42 Test Item Value Reference Range Interpretation Comments MAGNESIUM (BEAKER) (test code = 1.4 mg/dL 1.6-2.6 L 627) Bucket Wash Operator ID - ALVINA [id number] 04:46:42 Test Item Value Reference Range Interpretation Comments PHOSPHORUS (BEAKER) (test code = 2.6 mg/dL 2.3-4.7 604) Bucket Wash Operator ID - ALVINA MBASIC METABOLIC [id number] 04:46:41 Test Item Value Reference Range Interpretation [...] S NOT APPLICABLE FOR DIALYSIS PATIEN TS. Bucket Wash Operator ID - ALVINA MPOCT-GLUCOSE [id number] 21:32:38 Test Item Value Reference Range Interpretation Comments POC-GLUCOSE METER 175 mg/dL 70-110 H : TESTED A T [facility] 6720 (BEAKER) (test code = [facility] Ish[place] [facility], 1538) [address]: Bucket Wash Operator/Techni dakota ID = [id number] for NG O, BRIGIDA POCT-GLUCOSE [id number] 16:48:18 Test Item Value Reference Range Interpretation Comments POC-GLUCOSE METER 217 mg/dL 70-110 H : TESTED A T [facility] 6720 (BEAKER) (test code [facility], = 1538) [address]: Bucket Wash Operator/Techni dakota ID = [id number] for Mercy Peña POCT-GLUCOSE [id number] 12:45:58 Test Item Value Reference Range Interpretation Comments POC-GLUCOSE METER 158 mg/dL 70-110 H : TESTED A T [facility] 6720 (BEAKER) (test code [facility], = 1538) [address]: Bucket Wash Operator/Techni dakota ID = [id number] for Bhag jewelMercy HEPATIC FUNCTION [id number] 06:44:11 Test Item Value Reference Range Interpretation [...] (test code = 11 U/L 6-55 347) Bucket Wash Operator ID - ALVINA [id number] 06:44:10 Test Item Value Reference Range Interpretation Comments PHOSPHORUS (BEAKER) (test code = 2.4 mg/dL 2.3-4.7 604) Bucket Wash Operator ID - ALVINA MBASIC METABOLIC [id number] 06:44:09 Test Item Value Reference Range Interpretation [...] S NOT APPLICABLE FOR DIALYSIS PATIEN TS. Bucket Wash Operator ID - ALVINA [id number] 06:44:09 Test Item Value Reference Range Interpretation Comments MAGNESIUM (BEAKER) (test code = 1.5 mg/dL 1.6-2.6 L 627) Bucket Wash Operator ID - ALVINA MCBC W/PLT COUNT & AUTO [id number] 06:09:40 Test Item Value Reference Range Interpretation [...] PERCENT (BEAKER) (test code = 2801) BLOOD [id number] 23:00:53 Test Item Value Reference Range Interpretation Comments CULTURE (BEAKER) (test No growth in 5 days code = 1095) The specimen volume collected for this blood culture was below the optimum (10 mL per bottle or 20 mL total). Use of lower volumes may adversely affect recovery and/or detection times of some organisms.BLOOD [id number] 23:00:53 Test Item Value Reference Range Interpretation Comments CULTURE (BEAKER) (test No growth in 5 days code = 1095) POCT-GLUCOSE [id number] 21:19:41 Test Item Value Reference Range Interpretation Comments POC-GLUCOSE METER 154 mg/dL 70-110 H : TESTED A T [facility] 6720 (BEAKER) (test code = [facility], 1538) [address]: Bucket Wash Operator/Techni dakota ID = [id number] for Ok jennie (contract), Palak petersnye POCT-GLUCOSE [id number] 16:32:34 Test Item Value Reference Range Interpretation Comments POC-GLUCOSE METER 168 mg/dL 70-110 H : TESTED A T [facility] 6720 (BEAKER) (test code = [facility], 1538) 0[address]: Bucket Wash Operator/Techni dakota ID = [id number] for [place] LLIS, ERNST POCT-GLUCOSE [id number] 11:36:04 Test Item Value Reference Range Interpretation Comments POC-GLUCOSE METER 120 mg/dL 70-110 H : TESTED A T [facility] 6720 (BEAKER) (test code = [facility], 1538) 59222: Bucket Wash Operator/Techni dakota ID = [id number] for [place] LLIS, ERNST SARS-COV2/RT-PCR ([facility])2021-10-05 10:25:30 Test Item Value Reference Range Interpretation Comments SARS-COV2/RT-PCR (test Negative Not Detected, Negative, code = 3939603) See external report for linked test SARS-COV-2 PERFORMING LAB [facility] SHAUNA (test code = 7403113) Negative result for this test determines that [...] of the Act.Fact Sheet for Healthcare Prov iders:https://www.[employer]/sites/default/files/product/documents/Fact_Sheet_HC _Fxbtjhuzg_Hzpf_SQZB-NhO-6.pdfFact Sheet for Healthcare Patients:https://www.[employer]/sites/default/files/product/docume nts/Bzgz_Xjqys_Nvyykdvz_Gwop_DOTT-DiN-4.pdfPerforming Laboratory:[facility], [place] [address]RKMZ-YANGEFG METER 2021-10-05 08:03:30 Test Item Value Reference Range Interpretation Comments POC-GLUCOSE METER 109 mg/dL 70-110 : TESTED A T [facility] 6720 (BEAKER) (test code = [place] [facility], 1538) [address]: Bucket Wash Operator/Techni dakota ID = [id number] for ERNST FRANCOIS HEPATIC FUNCTION [id number] 07:35:20 Test Item Value Reference Range Interpretation [...] (test code = 12 U/L 6-55 347) Bucket Wash Operator ID Cherelle GRJOVI LOperator ID - [id number] 06:55:48 Test Item Value Reference Range Interpretation Comments MAGNESIUM (BEAKER) (test code = 1.6 mg/dL 1.6-2.6 627) Bucket Wash Operator ID Cherelle GRJOVI [id number] 06:55:48 Test Item Value Reference Range Interpretation Comments PHOSPHORUS (BEAKER) (test code = 2.1 mg/dL 2.3-4.7 L 604) Bucket Wash Operator BEATRIZ - MAILEJOVI LBASIC METABOLIC [id number] 06:55:47 Test Item Value Reference Range Interpretation [...] S NOT APPLICABLE FOR DIALYSIS PATIEN TS. Bucket Wash Operator ID - MARIBEL LCBC W/PLT COUNT & AUTO [id number] 06:21:14 Test Item Value Reference Range Interpretation [...] PERCENT (BEAKER) (test code = 2801) POCT-GLUCOSE [id number] 21:22:59 Test Item Value Reference Range Interpretation Comments POC-GLUCOSE METER 192 mg/dL 70-110 H : TESTED A T [facility] 6720 (BEAKER) (test code = [facility], 1538) 5[address]: Bucket Wash Operator/Techni dakota ID = [id number] for Arsenio schneider (contract)Palak POCT-GLUCOSE [id number] 17:34:11 Test Item Value Reference Range Interpretation Comments POC-GLUCOSE METER 201 mg/dL 70-110 H : TESTED A T [facility] 6720 (BEAKER) (test code = [facility], 1538) 13643: Bucket Wash Operator/Techni dakota ID = [id number] for Keely House POCT-GLUCOSE [id number] 12:07:46 Test Item Value Reference Range Interpretation Comments POC-GLUCOSE METER 103 mg/dL 70-110 : TESTED A T [facility] 6720 (BEAKER) (test code = [facility], 1538) 07370: Bucket Wash Operator/Techni dakota ID = [id number] for ERNST FRANCOIS SURGICALLY OBTAINED CULTURE + GRAM [id number] 09:10:42 Test Item Value Reference Range Interpretation [...] gram negative (BEAKER) (test code = rods 747385) HEPATIC FUNCTION [id number] 07:01:07 Test Item Value Reference Range Interpretation [...] (test code = 12 U/L 6-55 347) Bucket Wash Operator ID - BISI [id number] 07:01:06 Test Item Value Reference Range Interpretation Comments PHOSPHORUS (BEAKER) (test code = 2.8 mg/dL 2.3-4.7 604) Bucket Wash Operator ID - BISI GBASIC METABOLIC [id number] 07:01:05 Test Item Value Reference Range Interpretation [...] S NOT APPLICABLE FOR DIALYSIS PATIEN TS. Bucket Wash Operator ID - BISI [id number] 07:01:05 Test Item Value Reference Range Interpretation Comments MAGNESIUM (BEAKER) (test code = 1.6 mg/dL 1.6-2.6 627) Bucket Wash Operator ID - BISI GCBC W/PLT COUNT & AUTO [id number] 06:35:47 Test Item Value Reference Range Interpretation [...] PERCENT (BEAKER) (test code = 2801) POCT-GLUCOSE [id number] 16:48:07 Test Item Value Reference Range Interpretation Comments POC-GLUCOSE METER 113 mg/dL 70-110 H : TESTED A T [facility] 6720 (BEAKER) (test code = [facility], 1538) 76[address]: Bucket Wash Operator/Techni dakota ID = [id number] for MASON FALCON POCT-GLUCOSE [id number] 11:46:29 Test Item Value Reference Range Interpretation Comments POC-GLUCOSE METER 116 mg/dL 70-110 H : TESTED A T [facility] 6720 (BEAKER) (test code = [facility], 1538) 44571: Bucket Wash Operator/Techni dakota ID = [id number] for MASON FALCON ANTI-DNA [id number] 11:16:17 Test Item Value Reference Range Interpretation Comments ANTI-DNA TITER (BEAKER) (test code = :80 1553) DOUBLE-STRANDED DNA (DSDNA) [id number] 11:16:05 Test Item Value Reference Range Interpretation Comments ANTI-DNA DS (BEAKER) (test code = Positive Negative 1055) ANAEROBIC [id number] 08:30:44 Test Item Value Reference Range Interpretation Comments CULTURE (BEAKER) (test No anaerobes isolated code = 1095) HEPATIC FUNCTION [id number] 05:47:57 Test Item Value Reference Range Interpretation [...] Specimen slightly (test code = 347) hemolyzed Bucket Wash Operator ID - MARIBEL LBASIC METABOLIC [id number] 05:47:56 Test Item Value Reference Range Interpretation [...] S NOT APPLICABLE FOR DIALYSIS PATIEN TS. Bucket Wash Operator ID - PIJOVI [id number] 05:47:55 Test Item Value Reference Range Interpretation Comments PHOSPHORUS (BEAKER) 4.6 mg/dL 2.3-4.7 Specimen slightly (test code = 604) hemolyzed Bucket Wash Operator ID - MARIBEL [id number] 05:47:54 Test Item Value Reference Range Interpretation Comments MAGNESIUM (BEAKER) 1.9 mg/dL 1.6-2.6 Specimen slightly (test code = 627) hemolyzed Bucket Wash Operator ID - PIAYA LCBC (HEMOGRAM ONLY)2021-10-03 05:23:39 [...] 0-0 (BEAKER) (test code = 413) POCT-GLUCOSE [id number] 05:08:33 Test Item Value Reference Range Interpretation Comments POC-GLUCOSE METER 102 mg/dL 70-110 : Notified RN/MD: (BEAKER) (test code = TESTED AT [facility] 4158 3842) [facility], [address]: Bucket Wash Operator/Techni dakota ID = [id number] for Aaron Paul BASIC METABOLIC [id number] 21:11:22 Test Item Value Reference Range Interpretation [...] S NOT APPLICABLE FOR DIALYSIS PATIEN TS. Bucket Wash Operator ID - [id number] 21:10:34 Test Item Value Reference Range Interpretation Comments PHOSPHORUS (BEAKER) (test code = 4.2 mg/dL 2.3-4.7 604) Bucket Wash Operator ID - [id number] 21:10:33 Test Item Value Reference Range Interpretation Comments MAGNESIUM (BEAKER) (test code = 1.4 mg/dL 1.6-2.6 L 627) Bucket Wash Operator ID - ADMINCBC (HEMOGRAM ONLY)2021-10-02 20:57:35 Test [...] 0-0 (BEAKER) (test code = 413) POCT-GLUCOSE [id number] 19:48:59 Test Item Value Reference Range Interpretation Comments POC-GLUCOSE METER 104 mg/dL 70-110 : TESTED A T [facility] 6720 (BEAKER) (test code = [place], 1538) [address]: Bucket Wash Operator/Techni dakota ID = [id number] for Te rrell, Marcio HGB/HCT (H&H)-Stat [id number] 18:09:55 Test Item Value Reference Range Interpretation Comments Hemoglobin (test code = 10.2 See_Comment L [Au tomated message] 786-4) The system [employer] generated this result transmitted ref erence range: 13.0 - 1 6.8 GM/DL. The refe rence range was not u sed to interpret this result as normal/abnor mal. Hematocrit (test code = 30.0 % 40.0-50.0 L 4544-3) Lab Interpretation (test Abnormal code = 53020-8) [facility] ([facility]&H[facility]Stat [id number] 18:09:55 Test Item Value Reference Range Interpretation Comments Hemoglobin (test code = 10.2 See_Comment L [Au tomated message] 786-4) The system [employer] generated this result transmitted ref erence range: 13.0 - 1 6.8 GM/DL. The refe rence range was not u sed to interpret this result as normal/abnor mal. Hematocrit (test code = 30.0 % 40.0-50.0 L 4544-3) Lab Interpretation (test Abnormal code = 01563-8) [facility] StanfordHGB/HCT (H&H)-Stat [id number] 18:09:55 Test Item Value Reference Range Interpretation Comments Hemoglobin (test code = 10.2 See_Comment L [Au tomated message] 786-4) The system whic h generated this result transmitted ref erence range: 13.0 - 1 6.8 GM/DL. The refe rence range was not u sed to interpret this result as normal/abnor mal. Hematocrit (test code = 30.0 % 40.0-50.0 L 4544-3) Lab Interpretation (test Abnormal code = 74563-2) [facility] StanfordH[facility]/HCT (H&H) - STAT [id number] 18:09:55 Test Item Value Reference Range Interpretation Comments HEMOGLOBIN (BEAKER) (test code = 10.2 GM/DL 13.0-16.8 L 410) HEMATOCRIT (BEAKER) (test code = 30.0 % 40.0-50.0 L 411) Sodium Na-Stat [id number] 18:09:54 Test Item Value Reference Range Interpretation Comments Sodium (test code = 2951-2) 130 meq/L 136-145 L Lab Interpretation (test code = Abnormal 11619-8) [facility] [id number] 18:09:54 Test Item Value Reference Range Interpretation Comments Sodium (test code = 2951-2) 130 meq/L 136-145 L Lab Interpretation (test code = Abnormal 87371-9) [facility] [id number] 18:09:54 Test Item Value Reference Range Interpretation Comments Sodium (test code = 2951-2) 130 meq/L 136-145 L Lab Interpretation (test code = Abnormal 24157-9) [facility] [id number] 18:09:54 Test Item Value Reference Range Interpretation Comments SODIUM (BEAKER) (test code = 381) 130 meq/L 136-145 L Blood gas, [id number] 18:09:53 Test Item Value Reference Range Interpretation Comments pH, Arterial (test code 7.50 7.35-7.45 H = 2744-1) pCO2, Arterial (test 35 See_Comment [Autom ated message] code = 2019-8) The system [facility] generated this result transmit hernandez reference range : 35 - 45 mm Hg. The reference range was not used to interpret this result as normal/abnormal . pO2, Arterial (test 139 See_Comment H [Automa hernandez message] code = 2703-7) The system [employer] generated this result transmit hernandez reference range [...] 8310-5) Lab Interpretation Abnormal (test code = 20415-4) [facility] Stanford[facility] gas, [id number] 18:09:53 Test Item Value Reference Range Interpretation Comments pH, Arterial (test code 7.50 7.35-7.45 H = 2744-1) pCO2, Arterial (test 35 See_Comment [Autom ated message] code = 2018-12) The system [employer] generated this result transmit hernandez reference range : 35 - 45 mm Hg. The reference range was not used to interpret this result as normal/abnormal . pO2, Arterial (test 139 See_Comment H [Automa hernandez message] code = 2703-7) The system [employer] generated this result transmit hernandez reference range [...] 8310-5) Lab Interpretation Abnormal (test code = 21217-7) [facility] StanfordBlood gas, [id number] 18:09:53 Test Item Value Reference Range Interpretation Comments pH, Arterial (test code 7.50 7.35-7.45 H = 2744-1) pCO2, Arterial (test 35 See_Comment [Autom ated message] code = 2019-) The system [employer] generated this result transmit hernandez reference range : 35 - 45 mm Hg. The reference range was not used to interpret this result as normal/abnormal . pO2, Arterial (test 139 See_Comment H [Automa hernandez message] code = 2703-7) The system [facility] generated this result transmit hernandez reference [...] 8310-5) Lab Interpretation Abnormal (test code = 73735-0) [facility] StanfordCALCIUM, [id number] 18:09:53 Test Item Value Reference Range Interpretation Comments CALCIUM IONIZED (BEAKER) (test 1.07 mmol/L 1.12-1.27 L code = 698) PH, BLOOD (BEAKER) (test code = 7.50 1810) BLOOD GAS, [id number] 18:09:53 Test Item Value Reference Range Interpretation [...] (BEAKER) (test 37.0 code = 1818) Glucose-Stat [id number] 18:08:53 Test Item Value Reference Range Interpretation Comments Glucose (test code = 2345-7) 101 mg/dL 70-110 Lab Interpretation (test code = Normal 75310-3) [facility] StanfordPotassium-Stat [id number] 18:08:53 Test Item Value Reference Range Interpretation Comments Potassium (test code = 2823-3) 4.2 meq/L 3.6-5.5 Lab Interpretation (test code = Normal 59348-4) [facility] StanfordGlucose-Stat [id number] 18:08:53 Test Item Value Reference Range Interpretation Comments Glucose (test code = 2345-7) 101 mg/dL 70-110 Lab Interpretation (test code = Normal 15250-6) [facility] StanfordPotassium-Stat [id number] 18:08:53 Test Item Value Reference Range Interpretation Comments Potassium (test code = 2823-3) 4.2 meq/L 3.6-5.5 Lab Interpretation (test code = Normal 04947-9) [facility] StanfordGlucose-Stat [id number] 18:08:53 Test Item Value Reference Range Interpretation Comments Glucose (test code = 2345-7) 101 mg/dL 70-110 Lab Interpretation (test code = Normal 63920-0) [facility] StanfordPotassium-Stat [id number] 18:08:53 Test Item Value Reference Range Interpretation Comments Potassium (test code = 2823-3) 4.2 meq/L 3.6-5.5 Lab Interpretation (test code = Normal 45580-1) [facility] StanfordGLUCOSE-STAT [id number] 18:08:53 Test Item Value Reference Range Interpretation Comments GLUCOSE RANDOM (BEAKER) (test code 101 mg/dL 70-110 = 652) POTASSIUM-STAT [id number] 18:08:53 Test Item Value Reference Range Interpretation Comments POTASSIUM (BEAKER) (test code = 4.2 meq/L 3.6-5.5 379) POCT-GLUCOSE [id number] 16:03:15 Test Item Value Reference Range Interpretation Comments POC-GLUCOSE METER 128 mg/dL 70-110 H : TESTED A T [facility] 6720 (BEAKER) (test code = [place], 1538) [address]: Bucket Wash Operator/Techni dakota ID = [id number] for Keely House VANCOMYCIN LEVEL, [id number] 14:06:37 Test Item Value Reference Range Interpretation Comments VANCOMYCIN TROUGH (BEAKER) (test 10.9 ug/mL 10.0-20.0 code = 522) Bucket Wash Operator ID - DBSARS-COV2/RT-PCR ([facility])2021-10-02 12:40:57 Test Item Value Reference Range Interpretation Comments SARS-COV2/RT-PCR (test Negative Not Detected, Negative, code = 3802388) See external report for linked test SARS-COV-2 PERFORMING LAB [facility] SHAUNA (test code = 0637984) Negative result for this test determines that [...] of the Act.Fact Sheet for Healthcare Prov iders:https://www.[employer]/sites/default/files/product/documents/Fact_Sheet_HC _Tiaqyvdfu_Aosh_MLUD-JlT-0.pdfFact Sheet for Healthcare Patients:https://www.[employer]/sites/default/files/product/docume nts/Bnez_Tiatm_Wjgxofpq_Hqli_IBYZ-YyG-3.pdfPerforming Laboratory:[facility], [place] [address]DS, DRAINAGE, ABDOMINAL 2021-10-02 11:36:00Reason for exam:->necrotizing pancreatitis wiht fluid collections in abdomenReason for exam:->pls send cultures (aerobic, anaerobic) and amylase from fluid (all are ordered) [facility] : 2000 Sex: MFINAL REPORT PROCEDURE: Drainage catheter placement Procedural PersonnelAttending physician(s): Marvin Jordan physician(s): NoneResident physician(s): NoneAdvanpearl river [facility] practice provider(s): None Pre-procedure diagnosis: Necrotizing pancreatitisPost-procedure diagnosis: SameIndication:Leukocytosis with fluid collectionAdditional clinical history: None Complications: No immediate complications. IMPRESSION: Percutaneous placement of a 16 Peruvian drainage catheter into the anterior right upper [...] Daly MDReport Verified Date/Time: 10/02/2021 11:36:21 POCT-GLUCOSE [id number] 11:03:27 Test Item Value Reference Range Interpretation Comments POC-GLUCOSE METER 109 mg/dL 70-110 : TESTED A T [facility] 6720 (BEAKER) (test code = [place], 1538) [address]: Bucket Wash Operator/Techni dakota ID = [id number] for QUEEN HONEYCUTT BLOOD [id number] 10:09:04 Test Item Value Reference Interpretation Comments Range CULTURE (BEAKER) STAPHYLOCOCCUS A From Stue naheedic (test code = 1095) HOMINIS Bottle On [...] gram 1123) positive cocci in clusters POCT-GLUCOSE [id number] 07:31:14 Test Item Value Reference Range Interpretation Comments POC-GLUCOSE METER 76 mg/dL 70-110 : TESTED A T [facility] 6720 (BEAKER) (test code = [place], 1538) [address]: Bucket Wash Operator/Techni dakota ID = [id number] for QUEEN JACOBSEN [id number] 07:25:22 Test Item Value Reference Range Interpretation Comments PHOSPHORUS (BEAKER) (test code = 3.1 mg/dL 2.3-4.7 604) Bucket Wash Operator ID - RMHEPATIC FUNCTION [id number] 07:25:22 Test Item Value Reference Range Interpretation [...] (test code = 7 U/L 6-55 347) Bucket Wash Operator ID - RMBASIC METABOLIC [id number] 07:25:21 Test Item Value Reference Range Interpretation [...] S NOT APPLICABLE FOR DIALYSIS PATIEN TS. Bucket Wash Operator ID - [id number] 07:25:21 Test Item Value Reference Range Interpretation Comments MAGNESIUM (BEAKER) (test code = 1.6 mg/dL 1.6-2.6 627) Bucket Wash Operator ID - RMCBC (HEMOGRAM ONLY)2021-10-02 06:32:43 Test [...] RED BLOOD CELLS 0 /100 WBC 0-0 (GENEVA) (test code = 413) POCT-GLUCOSE [id number] 21:46:52 Test Item Value Reference Range Interpretation Comments POC-GLUCOSE METER 229 mg/dL 70-110 H : TESTED A T [facility] 6720 (GENEVA) (test code = DONNA [place] [facility], 1538) [address]: Bucket Wash Operator/Techni dakota ID = [id number] for HERLINDA VELASQUEZ POCT-GLUCOSE [id number] 16:53:40 Test Item Value Reference Range Interpretation Comments POC-GLUCOSE METER 231 mg/dL 70-110 H : Notified RN/MD: (GENEVA) (test code = TESTED AT [facility] 6720 1538) [facility], [address]: Bucket Wash Operator/Techni dakota ID = [id number] for Filippo Feldman 2D Echo W/Doppler(CW/PW/Color)2021-10-01 14:03:19 Test Item Value Reference Range Interpretation Comments Ejection Fraction Est EF is 55-60% (test code = 2574) Radiology Study observation (narrative) (test code = 84404-9) PXN (test code = Alejandro Hudson MD PXN) - 10/01/2021 Transthoracic Echocardiography Report (TTE) Demographics Patient Name YAMILE, Date of Study 10/01/2021 [place] Gender Male Visit Number [id number] Race Unknown Room Number 931 Number Date of 2000 Referring Physician Rebecca Echols Age 21 year(s) Bonderite Operator Garret Calderon RDCS [employer] Stefano Genao Interpreting Physician MAR Espinoza [...] Velocity: 2.26 m/s TR Gradient: 20.34 mmHg [facility] Echo W/Doppler(CW/PW/Color)2021-10-01 14:03:19 Test Item Value Reference Range Interpretation Comments Ejection Fraction Est EF is 55-60% (test code = 2574) Radiology Study observation (narrative) (test code = 74181-7) PXN (test code = Alejandro Hudson MD PXN) - 10/01/2021 Transthoracic Echocardiography Report (TTE) Demographics Patient Name YAMILE, Date of Study 10/01/2021 [place] Gender Male Visit Number [id number] Race Unknown Room Number 931 Number Date of 2000 Referring Physician Rebecca Echols Age 21 year(s) Bonderite Operator Garret Calderon [facility] Wind Energy Engineer Stefano Genao Interpreting Physician MAR Espinoza [...] Velocity: 2.26 m/s TR Gradient: 20.34 mmHg [facility] Echo W/Doppler(CW/PW/Color)2021-10-01 14:03:19 Test Item Value Reference Range Interpretation Comments Ejection Fraction Est EF is 55-60% (test code = 2574) Radiology Study observation (narrative) (test code = 14890-3) PXN (test code = Alejandro Hudson MD PXN) - 10/01/2021 Transthoracic Echocardiography Report (TTE) Demographics Patient Name YAMILE, Date of Study 10/01/2021 [place] Gender Male Visit Number [id number] Race Unknown Room Number 931 Number Date of 2000 Referring Physician Rebecca Echols Age 21 year(s) Bonderite Operator Garret Calderon [facility] Wind Energy Engineer Stefano Genao Interpreting Physician MAR Espinoza [...] Velocity: 2.26 m/s TR Gradient: 20.34 mmHg [facility] StanfordPO[facility]-GLUCOSE [id number] 12:29:44 Test Item Value Reference Range Interpretation Comments POC-GLUCOSE METER 186 mg/dL 70-110 H : TESTED A T [facility] 6720 (BEAKER) (test code = [place], 0668) [address]: Bucket Wash Operator/Techni dakota ID = [id number] for QU ARTMAN, DELMAR CT, ABDOMEN - PELVIS, PANCREAS [id number] 09:34:00Please have IV contrast if not already part of protocol.Unlisted Reason for Exam - Click Yes and Enter Reason Below->No [facility] : 2000 Sex: MFINAL REPORT [...] necrosis Superior Mesenteric Arter y: Patent Celiac [place]: Patent Celiac [place] and Hepatic Artery Anatomy: Conventional Gastroduodenal Artery: Patent Splenic Artery: Patent Main Portal Vein: Patent Portal Vein [place]: Patent Splenic Vein: Patent Superior Mesenteric Vein: Patent ADRENALS: No adrenal nodules.KIDNEYS/URETERS: No hydronephrosis, stones, or masses.PELVIC ORGANS/BLADDER: Unremarkable. PERITONEUM/RETROPERITONEUM: There hasbeen interval placement of a percutaneous drain into [...] multilobulated loculated collections containing fluid and gas throughoutthe abdomen and retroperitoneum without significant interval change. There are no areas of pancreatic nonenhancement identified to indicate necrosis. Mesenteric vasculature remains patent. Signed: Andrés Holloway MDReport Verified Date/Time: 10/01/2021 09:34:00 BLOOD [id number] 08:36:30 Test Item Value Reference Range Interpretation Comments CULTURE A From Aerobic An d (BEAKER) (test Anaerobic Bot tles Same code = 1095) organism has be en isolated from cultures(s) of the same body site and collection date . Repeat identifi cation and susceptibil ity testing perform ed only after consultat ion with the [facility] microbiology laboratory.Refe r to previous cultur e of* - Staphylococcus hominis GRAM STAIN From aerobic and RESULT (BEAKER) anaerobic (test code = bottles: gram 1123) positive cocci in clusters BODY FLUID CULTURE + GRAM [id number] 08:15:57 Test Item Value Reference Range Interpretation [...] gram negative (BEAKER) (test code = rods 687189) [id number] 05:43:54 Test Item Value Reference Range Interpretation Comments PHOSPHORUS (BEAKER) (test code = 2.8 mg/dL 2.3-4.7 604) Bucket Wash Operator ID Cherelle SWANN WHEPATIC FUNCTION [id number] 05:43:54 Test Item Value Reference Range Interpretation [...] (test code = 7 U/L 6-55 347) Bucket Wash Operator ID - SHREE WBASIC METABOLIC [id number] 05:43:53 Test Item Value Reference Range Interpretation [...] S NOT APPLICABLE FOR DIALYSIS PATIEN TS. Bucket Wash Operator ID Cherelle SWANN JKEFJNMQVF3238-46-85 05:43:53 Test Item Value Reference Range Interpretation Comments MAGNESIUM (BEAKER) (test code = 1.4 mg/dL 1.6-2.6 L 627) Bucket Wash Operator BEATRIZ SWANN WCBC (HEMOGRAM ONLY)2021-10-01 05:31:02 Test Item [...] (BEAKER) (test code = 413) Prepare Leuko-Red [id number] 23:54:00 Test Item Value Reference Range Interpretation Comments CROSSMATCH (test code = 2264) COMPATIBLE Unit ABO (test code = A Pos 9569407) UNIT NUMBER (test code = [id number] 934-0) Status (test code = 7824808) [facility]EN[facility]T Blood Bank Product (test code RED BLOOD CELLS = 2263) PRODUCT CODE (test code = F5375E04 933-2) [facility] Stanford[facility] Leuko-Red [id number] 23:54:00 Test Item Value Reference Range Interpretation Comments CROSSMATCH (test code = 2264) COMPATIBLE Unit ABO (test code = A Pos 6006829) UNIT NUMBER (test code = [id number] 934-0) Status (test code = 9394261) [place] Blood [facility] Product (test code RED BLOOD CELLS = 2263) PRODUCT CODE (test code = V8726P87 933-2) [facility] Stanford[facility]are Leuko-Red [id number] 23:54:00 Test Item Value Reference Range Interpretation Comments CROSSMATCH (test code = 2264) COMPATIBLE Unit ABO (test code = A Pos 8632366) UNIT NUMBER (test code = [id number] 934-0) Status (test code = 6167588) [facility] Blood Bank Product (test code RED BLOOD CELLS = 2263) PRODUCT CODE (test code = D3621Q48 933-2) [facility] StanfordPOCT-GLUCOSE [id number] 22:44:20 Test Item Value Reference Range Interpretation Comments POC-GLUCOSE METER 162 mg/dL 70-110 H : TESTED A T [facility] 6720 (BEAKER) (test code = [facility], 1538) [address]: Bucket Wash Operator/Techni dakota ID = [id number] for MARCOS WESTFALL POCT-GLUCOSE [id number] 17:43:25 Test Item Value Reference Range Interpretation Comments POC-GLUCOSE METER 145 mg/dL 70-110 H : TESTED A T [facility] 6720 (BEAKER) (test code = [facility], 1538) [address]: Bucket Wash Operator/Techni dakota ID = [id number] for WAYNE ZHENG DELMAR POCT-GLUCOSE [id number] 12:01:10 Test Item Value Reference Range Interpretation Comments POC-GLUCOSE METER 147 mg/dL 70-110 H : TESTED A T [facility] 6720 (BEAKER) (test code = [facility], 1538) 52789: Bucket Wash Operator/Techni dakota ID = [id number] for DELMAR COOPER POCT-GLUCOSE [id number] 07:49:49 Test Item Value Reference Range Interpretation Comments POC-GLUCOSE METER 131 mg/dL 70-110 H : TESTED A T [facility] 6720 (BEAKER) (test code = [facility], 1538) 74287: Bucket Wash Operator/Techni dakota ID = [id number] for DELMAR COOPER COMPLEMENT COMPONENT [id number] 02:28:40 Test Item Value Reference Range Interpretation Comments C4 COMPLEMENT (BEAKER) (test code = 5 mg/dL 15-57 L 394) Bucket Wash Operator ID - BSCOMPLEMENT COMPONENT [id number] 02:28:40 Test Item Value Reference Range Interpretation Comments C3 COMPLEMENT (BEAKER) (test code = 38 mg/dL 82-193 L 393) Bucket Wash Operator ID - BSHEPATIC FUNCTION [id number] 02:27:21 Test Item Value Reference Range Interpretation [...] (test code = 11 U/L 6-55 347) Bucket Wash Operator ID - [id number] 02:27:20 Test Item Value Reference Range Interpretation Comments MAGNESIUM (BEAKER) (test code = 1.6 mg/dL 1.6-2.6 627) Bucket Wash Operator ID - [id number] 02:27:20 Test Item Value Reference Range Interpretation Comments PHOSPHORUS (BEAKER) (test code = 3.0 mg/dL 2.3-4.7 604) Bucket Wash Operator ID - BSBASIC METABOLIC [id number] 02:27:19 Test Item Value Reference Range Interpretation [...] S NOT APPLICABLE FOR DIALYSIS PATIEN TS. Bucket Wash Operator ID - BSVANCOMYCIN LEVEL, [id number] 02:21:15 Test Item Value Reference Range Interpretation Comments VANCOMYCIN TROUGH (BEAKER) (test 22.5 ug/mL 10.0-20.0 H code = 522) Bucket Wash Operator ID - BSCBC (HEMOGRAM ONLY)2021-09-30 02:04:23 Test [...] H (BEAKER) (test code = 413) POCT-GLUCOSE [id number] 20:56:24 Test Item Value Reference Range Interpretation Comments POC-GLUCOSE METER 187 mg/dL 70-110 H : TESTED A T [facility] 6720 (BEAKER) (test code = [place], 1538) [address]: Bucket Wash Operator/Techni dakota ID = [id number] for HERLINDA VELASQUEZ CREATININE, RANDOM [id number] 19:52:48 Test Item Value Reference Range Interpretation Comments CREATININE URINE (BEAKER) (test 38.8 mg/dL code = 375) Reference Range: No NormalsOperator ID - BSPROTEIN, RANDOM [id number] 19:52:48 Test Item Value Reference Range Interpretation Comments PROTEIN, URINE (BEAKER) (test code = 25 mg/dL 0-14 H 1569) Bucket Wash Operator ID - BSURINALYSIS W/ [id number] 18:44:32 Test Item Value Reference Range Interpretation [...] = 1521) SOURCE(BEAKER) (test code = 2795) Bucket Wash Operator ID - [auto]Bucket Wash Operator ID - techAmylase, body [id number] 09:10:30 Test Item Value Reference Range Interpretation Comments Amylase, Fluid (test 18 U/L code = 1795-4) IDALIA (test code = Absence of reference IDALIA) range indicates that normals have not been defined.Assay performance has not been validated for this type of specimen. Bucket Wash Operator ID - [id number] [facility] StanfordAmylase, body [id number] 09:10:30 Test Item Value Reference Range Interpretation Comments Amylase, Fluid (test 18 U/L code = 1795-4) IDALIA (test code = Absence of reference IDALIA) range indicates that normals have not been defined.Assay performance has not been validated for this type of specimen. Bucket Wash Operator ID - [id number] [facility] StanfordAmylase, body [id number] 09:10:30 Test Item Value Reference Range Interpretation Comments Amylase, Fluid (test 18 U/L code = 1795-4) IDALIA (test code = Absence of reference IDALIA) range indicates that normals have not been defined.Assay performance has not been validated for this type of specimen. Bucket Wash Operator ID - [id number] [facility] StanfordAMYLASE, BODY [id number] 09:10:30 Test Item Value Reference Range Interpretation Comments AMYLASE FLUID (BEAKER) (test code = 18 U/L 350) Absence of reference range indicates that normals have not been defined.Assay performance has not been validated for this type of specimen.Bucket Wash Operator ID - [id number]-BRBBISS [id number] 08:52:13 Test Item Value Reference Range Interpretation Comments POC-GLUCOSE METER 103 mg/dL 70-110 : TESTED A T [facility] 6720 (BEAKER) (test code = [place], 1538) [address]: Bucket Wash Operator/Techni dakota ID = [id number] for DELMAR COOPER [id number] 05:58:12 Test Item Value Reference Range Interpretation Comments PHOSPHORUS (BEAKER) (test code = 3.7 mg/dL 2.3-4.7 604) Bucket Wash Operator ID - BISI GHEPATIC FUNCTION [id number] 05:58:12 Test Item Value Reference Range Interpretation [...] (test code = 10 U/L 6-55 347) Bucket Wash Operator ID - BISI GBASIC METABOLIC [id number] 05:58:11 Test Item Value Reference Range Interpretation [...] S NOT APPLICABLE FOR DIALYSIS PATIEN TS. Bucket Wash Operator ID - BISI [id number] 05:58:11 Test Item Value Reference Range Interpretation Comments MAGNESIUM (BEAKER) (test code = 1.7 mg/dL 1.6-2.6 627) Bucket Wash Operator ID - BISI GCBC (HEMOGRAM ONLY)2021-09-29 05:50:24 [...] H (BEAKER) (test code = 413) PROTHROMBIN TIME/[id number] 05:37:22 Test Item Value Reference Range Interpretation Comments PROTIME (BEAKER) 15.2 seconds 11.9-14.2 H (test code = 759) INR (BEAKER) (test 1.22 See_Comment [Automat ed message] code = 370) The system [employer] generated this result transmitted ref erence range: <=5.90. The reference range was not used to int erpret this result as normal/abnormal . RECOMMENDED COUMADIN/WARFARIN INR THERAPY RANGESSTANDARD DOSE: 2.0 - 3.0 Includes: PROPHYLAXIS for venous thrombosis, systemic embolization; TREATMENT for venous thrombosis and/or pulmonary embolus.HIGH RISK: Target INR is 2.5-3.5 for patients with mechanical heart valves.POCT-GLUCOSE [id number] 20:50:31 Test Item Value Reference Range Interpretation Comments POC-GLUCOSE METER 159 mg/dL 70-110 H : Notified RN/MD: (GENEVA) (test code = TESTED AT [facility] 6720 1538) [facility], [address]: Bucket Wash Operator/Techni dakota ID = [id number] for KELECHI ARNOLDROQUEHEATH RAD, CHEST, 1 VIEW, NON [id number] 19:15:00Reason for exam:->preop patient for OR tomorrowShould this be performed at the bedside?->[facility] 2000 Sex: MFINAL [...] Verified Date/Time: 09/28/2021 19:15:11 BLOOD CULTURE IDENTIFICATION [id number] 18:24:37 Test Item Value Reference Interpretation Comments Range LISTERIA MONOCYTOGENES Not detected Not detected (test code = 0363747) STAPHYLOCOCCUS (test Detected Not detected A Coagula se negative code = 20160424) Staph specie s (CoNS)- methici llin resistantFirst- line therapy: Vancom ycin MecA DETECTED Possible contamination. The likelihood of pathogenicity i s increased if th e organism is observed in multiple blood cultures obtain ed from separate venipunctures. Reference Range : Not Detected STAPHYLOCOCCUS AUREUS Not detected Not detected (test code = 7036063) STREPTOCOCCUS (test code Not detected Not detected = 0256179) STREPTOCOCCUS AGALACTIAE Not detected Not detected (GROUP B) (test code = 3855739) STREPTOCOCCUS PNEUMONIAE Not detected Not detected (test code = 5052134) STREPTOCOCCUS PYOGENES Not detected Not detected (GROUP A) (test code = 2523504) ACINETOBACTER BAUMANNII Not detected Not detected (test code = 9090956) HAEMOPHILUS INFLUENZAE Not detected Not detected (test code = 2301505) NEISSERIA MENINGITIDIS Not detected Not detected (test code = 2324527) ENTEROBACTERIACEAE (test Not detected Not detected code = 9191214) ENTEROBACTER CLOACOE Not detected Not detected COMPLEX (test code = 4295732) KLEBSIELLA OXYTOCA (test Not detected Not detected code = 6972701) KLEBSIELLA PNEUMONIAE Not detected Not detected (test code = 1650) PROTEUS (test code = Not detected Not detected 2195074) SERRATIA MARCESCENS Not detected Not detected (test code = 4902429) STACEY ALBICANS (test Not detected Not detected code = 0995965) STACEY GLABRATA (test Not detected Not detected code = 5305825) STACEY KRUSEI (test Not detected Not detected code = 2636522) STACEY PARAPSILOSIS Not detected Not detected (test code = 4862438) STACEY TROPICALIS (test Not detected Not detected code = 5345198) ESCHERICHIA COLI (test Not detected Not detected code = 9168060) METHICILLIN-RESISTANCE Detected Not detected A Note: Antimicrobial GENE (test code = resistance can 1201207) occur via multi ple mechanisms. A N ot Detected result for the [employer] antimicrobial resistance gene assays does not indicate antimicrobial susceptibility. Subculturing is required for species identification and susceptibility testing of isolates. VANCOMYCIN-RESISTANCE GENE (test code = 7916563) CARBAPENEM-RESISTANCE GENE (test code = 4707312) ENTEROCOCCUS-BEAKER Not detected Not detected (test code = 4278649) PSEUDOMONAS Not detected Not detected AERUGINOSA-BEAKER (test code = 3600572) Other bacteria and resistance markers not targeted by this PCR panel cannot be excluded; therefore clinical correlation and follow up of serology, culture results, and other molecular studies is required. The results are not intended to be used as the sole means for clinical diagnosis or patient management decisions. This sample was tested at the [facility] Molecular Diagnostics Laboratory using the [employer] Blood Culture ID Panel. It is FDA cleared and has been verified and approved by the [facility] Molecular Diagnostics Laboratory for clinical use. This laboratory is CLIA-certified and College ofAmerican Pathologists (CAP)-accredited to perform high complexity testing.HEMOGLOBIN AND [id number] 17:52:48 Test Item Value Reference Range Interpretation Comments HEMOGLOBIN (BEAKER) (test code = 7.2 GM/DL 13.7-17.5 L 410) HEMATOCRIT (BEAKER) (test code = 24.6 % 40.1-51.0 L 411) Bucket Wash Operator ID - [id number] 12:45:54 Test Item Value Reference Range Interpretation Comments Amylase (test code = 32 U/L 25-125 1798-8) IDALIA (test code = IDALIA) Bucket Wash Operator ID - PIAYA L Lab Interpretation (test Normal code = 60091-5) [facility] StanfordAmylase2022-05-12 12:45:54 Test Item Value Reference Range Interpretation Comments Amylase (test code = 32 U/L 25-125 1798-8) IDALIA (test code = IDALIA) Bucket Wash Operator ID - PIAYA L Lab Interpretation (test Normal code = 12008-2) [facility] StanfordAmylase2022-05-12 12:45:54 Test Item Value Reference Range Interpretation Comments Amylase (test code = 32 U/L 25-125 1798-8) IDALIA (test code = IDALIA) Bucket Wash Operator ID - PIAYA L Lab Interpretation (test Normal code = 72175-5) [facility] StanfordAMYLASE2022-05-12 12:45:54 Test Item Value Reference Range Interpretation Comments AMYLASE (BEAKER) (test code = 349) 32 U/L 25-125 Bucket Wash Operator ID - PIAYA LPOCT-GLUCOSE [id number] 12:21:36 Test Item Value Reference Range Interpretation Comments POC-GLUCOSE METER 89 mg/dL 70-110 : TESTED A T [facility] 6720 (BEAKER) (test code = [place] [facility], 1538) [address]: Bucket Wash Operator/Techni dakota ID = [id number] for Milena Wei POCT-GLUCOSE [id number] 07:58:39 Test Item Value Reference Range Interpretation Comments POC-GLUCOSE METER 101 mg/dL 70-110 : TESTED A T [facility] 6720 (BEAKER) (test code [facility], = 1538) [address]: Bucket Wash Operator/Techni dakota ID = [id number] for Martha Bell (CELLAVISION MANUAL DIFF)2021-09-28 06:59:01 [...] CONCENTRATION Adequate (CELLAVISION)(BEAKER) (test code = 3438) Bucket Wash Operator ID - [id number] ID - Rebecca Elizondo comments: Slide comments: CBC W/PLT COUNT & AUTO [id number] 06:59:00 Test Item Value Reference Range Interpretation [...] 0-0 (BEAKER) (test code = 413) SARS-COV2/RT-PCR ([facility])2021-09-28 05:26:25 Test Item Value Reference Range Interpretation Comments SARS-COV2/RT-PCR Negative Negative The SARS-Co V-2 target (test code = nucleic acids a re not 4135161) detected in thi s specimen. Negative result [...] revoked sooner. Fact Sheet for Healthcare Providers: https://www.Before the Call.co m/Documents/Xpert%20Xpress%20SARS%20CoV-2/Fact%20Sheets/3023802%48VDFX-NFW-2%20 HEALTHCARE%20PROVIDERS%20FACT%20SHEET.pdf Fact Sheet for Healthcare Patients: https://www.[employer]/Documents/Xpert%20Xp ress%20SARS%20CoV-2/Fact%20Sheets/3023801%66FYJR-MWT-5%20PATIENT%20FACT%20SHEET .pdfBASIC METABOLIC [id number] 05:15:58 Test Item Value Reference Range Interpretation [...] S NOT APPLICABLE FOR DIALYSIS PATIEN TS. Bucket Wash Operator ID - [id number] 04:33:33 Test Item Value Reference Range Interpretation Comments PHOSPHORUS (BEAKER) (test code = 4.1 mg/dL 2.3-4.7 604) Bucket Wash Operator ID - BSHEPATIC FUNCTION [id number] 04:33:33 Test Item Value Reference Range Interpretation [...] (test code = 11 U/L 6-55 347) Bucket Wash Operator ID - [id number] 04:33:32 Test Item Value Reference Range Interpretation Comments MAGNESIUM (BEAKER) (test code = 1.5 mg/dL 1.6-2.6 L 627) Bucket Wash Operator ID - BSLACTIC ACID, [id number] 04:27:30 Test Item Value Reference Range Interpretation Comments LACTATE BLOOD VENOUS (2) (BEAKER) 1.04 mmol/L 0.50-2.20 (test code = 2872) Bucket Wash Operator ID - BSPROTHROMBIN TIME/[id number] 04:23:49 Test Item Value Reference Range Interpretation Comments PROTIME (BEAKER) 15.5 seconds 11.9-14.2 H (test code = 759) INR (BEAKER) (test 1.25 See_Comment [Automat ed message] code = 370) The system [employer] generated this result transmitted ref erence range: <=5.90. The reference range was not used to int erpret this result as normal/abnormal . RECOMMENDED COUMADIN/WARFARIN INR THERAPY RANGESSTANDARD DOSE: 2.0 - 3.0 Includes: PROPHYLAXIS for venous thrombosis, systemic embolization; TREATMENT for venous thrombosis and/or pulmonary embolus.HIGH RISK: Target INR is 2.5-3.5 for patients with mechanical heart valves.CT, [id number] 00:01:00Unlisted Reason for Exam - Click Yes and Enter Reason Below->YesUnlisted Reason for Exam->necrotizing panc on OSH imagingIs this for enterography?->NoWill this procedure require oral contrast?->No [facility] 2000 Sex: MFINAL [...] CONCENTRATION Adequate (CELLAVISION)(BEAKER) (test code = 3438) Bucket Wash Operator ID - Romelia Tamez comments: Slide comments:COMPREHENSIVE METABOLIC [id number] 22:28:04 Test Item Value Reference Range Interpretation [...] S NOT APPLICABLE FOR DIALYSIS PATIEN TS. Bucket Wash Operator ID - [id number] 22:28:04 Test Item Value Reference Range Interpretation Comments LIPASE (BEAKER) (test code = 749) 24 U/L 8-78 Bucket Wash Operator ID - BSLACTIC ACID, [id number] 22:22:02 Test Item Value Reference Range Interpretation Comments LACTATE BLOOD VENOUS 1.20 mmol/L 0.50-2.20 Specime n slightly (2) (BEAKER) (test hemolyzed code = 1996) Bucket Wash Operator ID - BSPROTHROMBIN TIME/[id number] 22:18:27 Test Item Value Reference Range Interpretation Comments PROTIME (BEAKER) 15.2 seconds 11.9-14.2 H (test code = 759) INR (BEAKER) (test 1.22 See_Comment [Automat ed message] code = 370) The system [employer] generated this result transmitted ref erence range: <=5.90. The reference range was not used to int erpret this result as normal/abnormal . RECOMMENDED COUMADIN/WARFARIN INR THERAPY RANGESSTANDARD DOSE: 2.0 - 3.0 Includes: PROPHYLAXIS for venous thrombosis, systemic embolization; TREATMENT for venous thrombosis and/or pulmonary embolus.HIGH RISK: Target INR is 2.5-3.5 for patients with mechanical heart valves.CBC W/PLT COUNT & AUTO [id number] 22:11:15 Test Item Value Reference Range Interpretation [...] = 413) RAD, CHEST, 1 VIEW, NON [id number] 21:03:00Reason for exam:->ABNORMAL IMAGING RESULTShould this be performed at the bedside?->Yes [facility] : 2000 Sex: MFINAL REPORT TECHNIQUE: Frontal view of the chest. INDICATION: ABNORMAL IMAGING RESULT. COMPARISON: 09/10/2021. FINDINGS: LINES/TUBES: None. HEART AND MEDIASTINUM: Cardiomediastinal contour is within normal limits. LUNGS: The lungs are well inflated and clear. No consolidation or pulmonary edema. PLEURA: No pneumothorax. No significant pleural effusion. SOFT TISSUES AND BONES: Unremarkable. IMPRESSION:No acute cardiopulmonary process. Signed: Andrés Holloway [facility] Verified Date/Time: 09/27/2021 21:03:24 - CT ABDOMEN W W/O CONTRAST 2021-09-27 15:48:00 [facility] 2000 Sex: M FAX: Willard Vaughn Jr [phone] [place]: St: REG Name: VANGIE OVALLE [facility] : 2000 Age/S: 21/M [address] Unit: [id number] Loc: [place] [address] Phys: Willard Crouch Jr, MD Acct: [id number] Dis Date: Status: REG CLI PHONE #: [phone] Exam Date: 09/27/2021 1530 FAX #: [phone]: PANCREATITIS EXAMS: CPT CODE: [id number] CT ABDOMEN W W/O CONTRAST 58448 EXAM: CT ABDOMEN WITH AND WITHOUT CONTRAST INDICATION: History of chronic pancreatitis with acute pain, fever. History of lupus LOCATION: B2 COMPARISON: None TECHNIQUE: CT of the abdomen was performed before and after 95mL of Isovue- [address] scans are performed using radiation dose reduction technique. Technical factors are evaluated and adjusted to insure appropriate moderation of exposure. Automated dose management technology is applied to adjust the radiation dose to minimize exposure whileachieving a diagnostic quality image. Total DLP of 1652 mGy-cm. GFR greater than 60 FINDINGS: Lung bases: Bibasilar atelectasis. The heart is slightly enlarged [...] Signed Report (CONTINUED) FAX: Willard Vaughn Jr [phone] [place]: St: REG Name: VANGIE OVALLE [facility] Robert : 2000 Age/S: 21/M [address] Unit: [id number] Loc: [place] [address] Phys: Willard Crouch Jr, MD Acct: [id number] Dis Date: Status: REG CLI PHONE #: [phone] Exam Date: 09/27/2021 1530 FAX #: [phone] Reason: PANCREATITIS EXAMS: CPT CODE: [id number] CT ABDOMEN W W/O CONTRAST 78949 (Continued) IMPRESSION: 1. Slight heterogeneous enhancement of [...] CODING PURPOSES ONLY RESULT CODE: CVR at 9974 Reported and signed by: Vandana Madison MD CC: Willard Crouch Jr Technologist: LAMBERTO ARTEAGA Trnscrd Dt/Tm: 09/27/2021 (4053) AmnaPXC Orig Print D/T: S: 09/27/2021 (3097 PAGE 2 Signed ReportBEDSIDE [id number] 15:20:00 Test Item Value Reference Range Interpretation Comments BEDSIDE CREATININE (test code = 0.7 MG/DL 0.5-1.0 N CREATBED) Fecal [id number] 22:49:02 Test Item Value Reference Range Interpretation Comments Fecal Leukocytes (test No fecal leukocytes No fecal leukocytes code = 44391-4) seen seen Lab Interpretation Normal (test code = 33613-2) [facility] StanfordFecal [id number] 22:49:02 Test Item Value Reference Range Interpretation Comments Fecal Leukocytes (test No fecal leukocytes No fecal leukocytes code = 31469-1) seen seen Lab Interpretation Normal (test code = 89744-0) [facility] StanfordFecal [id number] 22:49:02 Test Item Value Reference Range Interpretation Comments Fecal Leukocytes (test No fecal leukocytes No fecal leukocytes code = 24194-4) seen seen Lab Interpretation Normal (test code = 17017-8) [facility] StanfordFECAL [id number] 22:49:02 Test Item Value Reference Range Interpretation Comments FECAL LEUKOCYTES No fecal leukocytes No fecal leukocytes (BEAKER) (test code = seen seen 992) POCT-GLUCOSE [id number] 16:36:44 Test Item Value Reference Range Interpretation Comments POC-GLUCOSE METER 204 mg/dL 70-110 H : TESTED A T [facility] 6720 (BEAKER) (test code = [facility], 1538) [address]: Bucket Wash Operator/Techni dakota ID = [id number] for Co Sahil cesara POCT-GLUCOSE [id number] 11:38:42 Test Item Value Reference Range Interpretation Comments POC-GLUCOSE METER 122 mg/dL 70-110 H : TESTED A T [facility] 6720 (BEAKER) (test code = [facility], 1538) [address]: Bucket Wash Operator/Techni dakota ID = [id number] for Co arsenio, Susanna BASIC METABOLIC [id number] 08:51:41 Test Item Value Reference Range Interpretation [...] S NOT APPLICABLE FOR DIALYSIS PATIEN TS. Bucket Wash Operator ID - DBPOCT-GLUCOSE [id number] 07:42:10 Test Item Value Reference Range Interpretation Comments POC-GLUCOSE METER 100 mg/dL 70-110 : TESTED A T [facility] 6720 (BEAKER) (test code = [facility], 1538) [address]: Bucket Wash Operator/Techni dakota ID = [id number] for Co ok, Susanna [id number] 06:05:53 Test Item Value Reference Range Interpretation Comments MAGNESIUM (BEAKER) (test code = 1.5 mg/dL 1.6-2.6 L 627) Bucket Wash Operator ID - DBPOCT-GLUCOSE [id number] 22:10:06 Test Item Value Reference Range Interpretation Comments POC-GLUCOSE METER 226 mg/dL 70-110 H : TESTED A T [facility] 6720 (BEAKER) (test code = [facility], [facility]8) 11072: Bucket Wash Operator/Techni dakota ID = [id number] for Guanakito Banks (contract), Maribel i POCT-GLUCOSE [id number] 17:25:35 Test Item Value Reference Range Interpretation Comments POC-GLUCOSE METER 167 mg/dL 70-110 H : TESTED A T [facility] 6720 (BEAKER) (test code = [facility], 1538) 96163: Bucket Wash Operator/Techni dakota ID = [id number] for Co [place], Susanna POCT-GLUCOSE [id number] 11:53:31 Test Item Value Reference Range Interpretation Comments POC-GLUCOSE METER 84 mg/dL 70-110 : TESTED A T [facility] 6720 (BEAKER) (test code = [facility], 1538) 22105: Bucket Wash Operator/Techni dakota ID = [id number] for Cook , Susanna POCT-GLUCOSE [id number] 07:47:58 Test Item Value Reference Range Interpretation Comments POC-GLUCOSE METER 91 mg/dL 70-110 : TESTED A T [facility] 6720 (BEAKER) (test code = [facility], 1538) 59151: Bucket Wash Operator/Techni dakota ID = [id number] for Susanna Light [id number] 05:26:53 Test Item Value Reference Range Interpretation Comments FERRITIN (BEAKER) (test code = 1277.07 ng/mL 5.00-275.00 H 361) Bucket Wash Operator ID - ALVINA [id number] 05:16:29 Test Item Value Reference Range Interpretation Comments MAGNESIUM (BEAKER) 1.5 mg/dL 1.6-2.6 L Specimen slightly (test code = 627) hemolyzed Bucket Wash Operator ID - BSCOMPREHENSIVE METABOLIC [id number] 05:16:29 Test Item Value Reference Range Interpretation [...] S NOT APPLICABLE FOR DIALYSIS PATIEN TS. Bucket Wash Operator ID - BSCBC W/PLT COUNT & AUTO [id number] 05:09:25 Test Item Value Reference Range Interpretation [...] PERCENT (BEAKER) (test code = 2801) POCT-GLUCOSE [id number] 23:08:33 Test Item Value Reference Range Interpretation Comments POC-GLUCOSE METER 180 mg/dL 70-110 H : TESTED A T [facility] 6720 (BEAKER) (test code = [place], 1538) 29396: Bucket Wash Operator/Techni dakota ID = [id number] for CAROLINA LENZ Giardia [id number] 19:26:40 Test Item Value Reference Range Interpretation Comments STATUS: FINAL (QUEST) (test code = 8428476) RESULT: Not Detected Reference Range :Not (QUEST) (test Detected code = 20151121) Source: (test STOOL code = 19329-4) Comment: See Below NOTE: Due to (test code = intermittent edding, ) one negativesam ple does not necess arily rule out the presenceof a pa rasitic infection. IDALIA (test Performing Lab *JESSENIA code = IDALIA) [facility], [address] [place], [place] [address] Angela Barcenas MD [facility] Stanford[facility]ardia [id number] 19:26:40 Test Item Value Reference Range Interpretation Comments STATUS: FINAL (QUEST) (test code = 8654626) RESULT: Not Detected Reference Range :Not (QUEST) (test Detected code = 20151121) Source: (test STOOL code = 52251-5) Comment: See Below NOTE: Due to (test code = intermittent edding, ) one negativesam ple does not necess arily rule out the presenceof a pa rasitic infection. IDALIA (test Performing Lab *JESSENIA code = IDALIA) [facility], [address] [place], [place] [address] Angela Barcenas MD [facility] StanfordGiardia [id number] 19:26:40 Test Item Value Reference Range Interpretation Comments STATUS: FINAL (QUEST) (test code = 8256350) RESULT: Not Detected Reference Range :Not (QUEST) (test Detected code = 6192721) Source: (test STOOL code = 31000-3) Comment: See Below NOTE: Due to (test code = intermittent sh edding, ) one negativesam ple does not necess arily rule out the presenceof a pa rasitic infection. IDALIA (test Performing Lab *JESSENIA code = IDALIA) [facility], [address] [place] [phone] Angela Barcenas MD [facility] StanfordPOCT-GLUCOSE [id number] 15:54:55 Test Item Value Reference Range Interpretation Comments POC-GLUCOSE METER 302 mg/dL 70-110 H : TESTED A T [facility] 6720 (BEAKER) (test code = [place] [facility], 153) 79057: Bucket Wash Operator/Techni dakota ID = [id number] for Je ssie, Kevin POCT-GLUCOSE [id number] 11:59:06 Test Item Value Reference Range Interpretation Comments POC-GLUCOSE METER 118 mg/dL 70-110 H : TESTED A T [facility] 6720 (BEAKER) (test code = [facility] Ishaan [facility], 1538) 49666: Bucket Wash Operator/Techni dakota ID = [id number] for Je ssie, Kevin Ova and Parasite [id number] 10:29:02See scanned reportLuc[facility]ter [facility]'s Hospital at StanfordOva and Parasite Jjkrhyrmfwe6979-28-19 10:29:02See scanned report [facility] StanfordOva and Parasite Pacgdhvzahx7151-61-07 10:29:02See scanned reportLucile Salter Packard [facility]'s Hospital at StanfordPOCT-GLUCOSE [id number] 08:15:03 Test Item Value Reference Range Interpretation Comments POC-GLUCOSE METER 153 mg/dL 70-110 H : TESTED A T [facility] 6720 (BEAKER) (test code = [facility], 153) 17864: Bucket Wash Operator/Techni dakota ID = [id number] for Je ssie, Kevin [id number] 05:39:21 Test Item Value Reference Range Interpretation Comments FERRITIN (BEAKER) (test code = 2065.19 ng/mL 5.00-275.00 H 361) Bucket Wash Operator ID - ALVINA MOperator ID - ALVINA [id number] 04:33:07 Test Item Value Reference Range Interpretation Comments MAGNESIUM (BEAKER) (test code = 1.7 mg/dL 1.6-2.6 627) Bucket Wash Operator ID - ALVINA MCOMPREHENSIVE METABOLIC [id number] 04:33:06 Test Item Value Reference Range Interpretation [...] S NOT APPLICABLE FOR DIALYSIS PATIEN TS. Bucket Wash Operator ID - ALVINA MCBC W/PLT COUNT & AUTO [id number] 04:05:50 Test Item Value Reference Range Interpretation [...] PERCENT (BEAKER) (test code = 2801) POCT-GLUCOSE [id number] 22:26:51 Test Item Value Reference Range Interpretation Comments POC-GLUCOSE METER 263 mg/dL 70-110 H : TESTED A T [facility] 6720 (BEAKER) (test code = [place] [facility], 1538) 12076: Bucket Wash Operator/Techni dakota ID = [id number] for Cherry Morrissey POCT-GLUCOSE [id number] 17:52:33 Test Item Value Reference Range Interpretation Comments POC-GLUCOSE METER 320 mg/dL 70-110 H : TESTED A T [facility] 6720 (BEAKER) (test code [facility], = 1538) 71279: Bucket Wash Operator/Techni dakota ID = [id number] for SD GALLO [id number] 16:04:21 Test Item Value Reference Range Interpretation Comments MAGNESIUM (BEAKER) (test code = 1.6 mg/dL 1.6-2.6 627) Bucket Wash Operator ID - BSPOCT-GLUCOSE [id number] 13:44:43 Test Item Value Reference Range Interpretation Comments POC-GLUCOSE METER 243 mg/dL 70-110 H : [facility] (test code [facility], = 1538) 17319: Bucket Wash Operator/Techni dakota ID = [id number] for SD GALLO ANTI-DNA [id number] 12:19:23 Test Item Value Reference Range Interpretation Comments ANTI-DNA TITER (BEAKER) (test code = :80 1553) DOUBLE-STRANDED DNA (DSDNA) [id number] 12:19:05 Test Item Value Reference Range Interpretation Comments ANTI-DNA DS (BEAKER) (test code = Positive Negative 1055) SARS-COV2/RT-PCR ([facility])2021-09-19 10:54:11 Test Item Value Reference Range Interpretation Comments SARS-COV2/RT-PCR (test Negative Not Detected, Negative, code = 2607527) See external report for linked test SARS-COV-2 PERFORMING LAB [facility] SHAUNA (test code = 9953330) Negative result for this test determines that [...] of the Act.Fact Sheet for Healthcare Prov iders:https://www.[employer]/sites/default/files/product/documents/Fact_Sheet_HC _Smgjptmgd_Ttmi_MGFX-KjV-8.pdfFact Sheet for Healthcare Patients:https://www.[employer]/sites/default/files/product/docume nts/Jnlo_Jkxgb_Mcfsdalj_Nsci_AFTE-PwL-9.pdfPerforming Laboratory:[facility], [place] [address]URGN-PGHEJPM METER 2021-09-19 08:21:15 Test Item Value Reference Range Interpretation Comments POC-GLUCOSE METER 228 mg/dL 70-110 H : TESTED Daphne Miller [facility] 6720 (BEAKER) (test code DIN[facility] [facility], = 1538) 56079: Bucket Wash Operator/Techni dakota ID = [id number] for SD GALLO2022-05-03 08:08:54 Test Item Value Reference Range Interpretation Comments MAGNESIUM (BEAKER) (test code = 1.4 mg/dL 1.6-2.6 L 627) Bucket Wash Operator ID - BRANDIN CCOMPREHENSIVE METABOLIC [id number] 08:08:53 Test Item Value Reference Range Interpretation [...] S NOT APPLICABLE FOR DIALYSIS PATIEN TS. Bucket Wash Operator ID - BRANDIN [id number] 07:30:23 Test Item Value Reference Range Interpretation Comments FERRITIN (BEAKER) (test code = 2272.75 ng/mL 5.00-275.00 H 361) Bucket Wash Operator ID - SHREE WOperator ID Cherelle SWANN WCBC W/PLT COUNT & AUTO [id number] 06:07:16 Test Item Value Reference Range Interpretation [...] 417) IMMATURE GRANULOCYTES-RELATIVE 1 % 0-1 PERCENT (LEOAKER) (test code = 2801) POCT-GLUCOSE [id number] 21:42:25 Test Item Value Reference Range Interpretation Comments POC-GLUCOSE METER 218 mg/dL 70-110 H : TESTED A T [facility] 6720 ([address]) (test code = [place] [facility], 1538) 97992: Bucket Wash Operator/Techni dakota ID = [id number] for ABE TEJADA POCT-GLUCOSE [id number] 17:08:14 Test Item Value Reference Range Interpretation Comments POC-GLUCOSE METER 148 mg/dL 70-110 H : TESTED A T [facility] [address] ([address]) (test code DIN[facility], = 1538) 89203: Bucket Wash Operator/Techni dakota ID = [id number] for SD GALLO MISCELLANEOUS LAB [id number] 14:26:25 Test Item Value Reference Range Interpretation Comments SCAN RESULT (test code = See scanned report [id number]) See scanned reportCMV PCR, [id number] 14:23:40 Test Item Value Reference Range Interpretation [...] and its performance characteristics determined by the [facility] Pathol ogy Department, Section of Molecular [...] H : TESTED Daphne Miller [facility] 6720 (BEAKER) (test code [facility], = 1538) 16499: Bucket Wash Operator/Techni dakota ID = [id number] for SD GALLO MISCELLANEOUS LAB [id number] 09:55:02 Test Item Value Reference Range Interpretation Comments SCAN RESULT (test code = See scanned report [id number]) See scanned reportPOCT-GLUCOSE [id number] 09:36:32 Test Item Value Reference Range Interpretation Comments POC-GLUCOSE METER 99 mg/dL 70-110 : TESTED Daphne Miller [facility] 6720 (BEAKER) (test code = [place] [facility], 1538) 22387: Bucket Wash Operator/Techni dakota ID = [id number] for SD GALLO COMPREHENSIVE METABOLIC [id number] 07:28:53 Test Item Value Reference Range Interpretation [...] S NOT APPLICABLE FOR DIALYSIS PATIEN TS. Bucket Wash Operator ID - [id number] 07:28:52 Test Item Value Reference Range Interpretation Comments MAGNESIUM (BEAKER) 1.3 mg/dL 1.6-2.6 L Specimen slightly (test code = 627) hemolyzed Bucket Wash Operator ID - DBCBC W/PLT COUNT & AUTO [id number] 07:26:37 Test Item Value Reference Range Interpretation [...] PERCENT (BEAKER) (test code = 2801) POCT-GLUCOSE [id number] 22:29:02 Test Item Value Reference Range Interpretation Comments POC-GLUCOSE METER 207 mg/dL 70-110 H : TESTED A T [facility] 6720 (BEAKER) (test code = [place], 1538) 30168: Bucket Wash Operator/Techni dakota ID = [id number] for SHADY TANISHA CAROLINA POCT-GLUCOSE [id number] 17:18:02 Test Item Value Reference Range Interpretation Comments POC-GLUCOSE METER 228 mg/dL 70-110 H : TESTED A T [facility] 6720 (BECAMILO) (test code = [facility] Ishaan [facility], 1538) 53208: Bucket Wash Operator/Techni dakota ID = [id number] for FA KAREN CASEY POCT-GLUCOSE [id number] 12:29:44 Test Item Value Reference Range Interpretation Comments POC-GLUCOSE METER 174 mg/dL 70-110 H : TESTED A T [facility] 6720 (BECAMILO) (test code = [facility], 1538) 50854: Bucket Wash Operator/Techni dakota ID = [id number] for FA KAREN CASEY POCT-GLUCOSE [id number] 12:15:50 Test Item Value Reference Range Interpretation Comments POC-GLUCOSE METER 111 mg/dL 70-110 H : TESTED A T [facility] 6720 (GENEVA) (test code = [facility], 1538) 41413: Bucket Wash Operator/Techni dakota ID = [id number] for MASON LINK GI Pathogen Profile by PCR -ID [id number] 08:09:12 Test Item Value Reference Range Interpretation Comments CAMPYLOBACTER (PCR) Not detected Not detected (test code = 70921-2) PLESIOMONAS SHIGELLOIDES Not detected Not detected (PCR) (test code = 98702-2) SALMONELLA (PCR) (test Not detected Not detected code = 22837-9) YERSINIA ENTEROCOLITICA Not detected Not detected (PCR) (test code = 36615-9) VIBRIO CHOLERAE (PCR) Not detected Not detected (test code = 11412-8) ENTEROAGGREGATIVE E. Not detected Not detected COLI (EAEC) BY PCR (test code = 50748-2) ENTEROPATHOGENIC E. COLI Not detected Not detected (EPEC) BY PCR (test code = 97471-4) ENTEROTOXIGENIC E. COLI Not detected Not detected (ETEC) LT/ST BY PCR (test code = 76380-0) SHIGA-LIKE Not detected Not detected TOXIN-PRODUCING E. COLI (STEC) STX1/STX2 (test code = 62417-4) E. COLI O157 (PCR) (test code = 39202-8) SHIGELLA/ENTEROINVASIVE Not detected Not detected E. COLI (EIEC) BY PCR (test code = 93577-5) CRYPTOSPORIDIUM (PCR) Not detected Not detected (test code = 68781-7) CYCLOSPORA CAYETANENSIS Not detected Not detected (PCR) (test code = 05037-9) ENTAMOEBA HISTOLYTICA Not detected Not detected (PCR) (test code = 75018-3) GIARDIA LAMBLIA (PCR) Not detected Not detected (test code = 32059-8) ADENOVIRUS F 40/41 (PCR) Not detected Not detected (test code = 04202-2) ASTROVIRUS (PCR) (test Not detected Not detected code = 52519-2) NOROVIRUS GI/GII (PCR) Not detected Not detected (test code = 47083-4) ROTAVIRUS A (PCR) (test Not detected Not detected code = 42306-3) SAPOVIRUS (I, II, IV, V) Not detected Not detected BY PCR (test code = 51742-2) VIBRIO Not detected Not detected (PARAHAEMOLYTICUS, VULNIFICUS) (test code = 17963-9) IDALIA (test code = IDALIA) Other viruses, parasites and bacteria not targeted by this PCR panel cannot be excluded; therefore clinical correlation and follow up of serology, culture results, and other molecular studies is required. The results are not intended to be used as the sole means for clinical diagnosis or patient management decisions. This sample was tested at the [facility] Molecular Diagnostics Laboratory using the [employer] Gastrointestinal Panel. It is FDA cleared and has been verified and approved by the [facility] Molecular Diagnostics Laboratory for clinical use. This laboratory is CLIA-certified and [employer] (CAP)-accredited to perform high complexity testing. [facility] Profile by PCR -ID [id number] 08:09:12 Test Item Value Reference Range Interpretation Comments CAMPYLOBACTER PCR (test Not detected Not detected code = 88050-1) PLESIOMONAS SHIGELLOIDES Not detected Not detected (PCR) (test code = 42063-0) SALMONELLA (PCR) (test Not detected Not detected code = 13569-0) YERSINIA ENTEROCOLITICA Not detected Not detected (PCR) (test code = 35041-8) VIBRIO CHOLERAE (PCR) Not detected Not detected (test code = 71498-1) ENTEROAGGREGATIVE E. Not detected Not detected COLI (EAEC) BY PCR (test code = 73580-4) ENTEROPATHOGENIC E. COLI Not detected Not detected (EPEC) BY PCR (test code = 09473-9) ENTEROTOXIGENIC E. COLI Not detected Not detected (ETEC) LT/ST BY PCR (test code = 02506-3) SHIGA-LIKE Not detected Not detected TOXIN-PRODUCING E. COLI (STEC) STX1/STX2 (test code = 81657-4) E. COLI O157 (PCR) (test code = 47621-0) SHIGELLA/ENTEROINVASIVE Not detected Not detected E. COLI (EIEC) BY PCR (test code = 72548-2) CRYPTOSPORIDIUM (PCR) Not detected Not detected (test code = 07781-5) CYCLOSPORA CAYETANENSIS Not detected Not detected (PCR) (test code = 81177-7) ENTAMOEBA HISTOLYTICA Not detected Not detected (PCR) (test code = 90363-9) GIARDIA LAMBLIA (PCR) Not detected Not detected (test code = 43126-8) ADENOVIRUS F 40/41 (PCR) Not detected Not detected (test code = 11049-1) ASTROVIRUS (PCR) (test Not detected Not detected code = 11573-9) NOROVIRUS GI/GII (PCR) Not detected Not detected (test code = 86713-1) ROTAVIRUS A (PCR) (test Not detected Not detected code = 30614-7) SAPOVIRUS (I, II, IV, V) Not detected Not detected BY PCR (test code = 66982-6) VIBRIO Not detected Not detected (PARAHAEMOLYTICUS, VULNIFICUS) (test code = 93590-7) IDALIA (test code = IDALIA) Other viruses, parasites and bacteria not targeted by this PCR panel cannot be excluded; therefore clinical correlation and follow up of serology, culture results, and other molecular studies is required. The results are not intended to be used as the sole means for clinical diagnosis or patient management decisions. This sample was tested at the [facility] Molecular Diagnostics Laboratory using the [employer] Gastrointestinal Panel. It is FDA cleared and has been verified and approved by the [facility] Molecular Diagnostics Laboratory for clinical use. This laboratory is CLIA-certified and [employer] (CAP)-accredited to perform high complexity testing. [facility] by PCR -ID [id number] 08:09:12 Test Item Value Reference Range Interpretation Comments CAMPYLOBACTER PCR (test Not detected Not detected code = 01388-7) PLESIOMONAS SHIGELLOIDES Not detected Not detected (PCR) (test code = 30639-5) SALMONELLA (PCR) (test Not detected Not detected code = 55895-6) YERSINIA ENTEROCOLITICA Not detected Not detected (PCR) (test code = 53949-7) VIBRIO CHOLERAE (PCR) Not detected Not detected (test code = 03507-5) ENTEROAGGREGATIVE E. Not detected Not detected COLI (EAEC) BY PCR (test code = 36178-0) ENTEROPATHOGENIC E. COLI Not detected Not detected (EPEC) BY PCR (test code = 49398-7) ENTEROTOXIGENIC E. COLI Not detected Not detected (ETEC) LT/ST BY PCR (test code = 61985-0) SHIGA-LIKE Not detected Not detected TOXIN-PRODUCING E. COLI (STEC) STX1/STX2 (test code = 81254-5) E. COLI O157 (PCR) (test code = 40666-1) SHIGELLA/ENTEROINVASIVE Not detected Not detected E. COLI (EIEC) BY PCR (test code = 61959-0) CRYPTOSPORIDIUM (PCR) Not detected Not detected (test code = 40261-0) CYCLOSPORA CAYETANENSIS Not detected Not detected (PCR) (test code = 14621-7) ENTAMOEBA HISTOLYTICA Not detected Not detected (PCR) (test code = 38028-2) GIARDIA LAMBLIA (PCR) Not detected Not detected (test code = 17851-0) ADENOVIRUS F 40/41 (PCR) Not detected Not detected (test code = 00667-9) ASTROVIRUS (PCR) (test Not detected Not detected code = 89322-3) NOROVIRUS GI/GII (PCR) Not detected Not detected (test code = 46569-6) ROTAVIRUS A (PCR) (test Not detected Not detected code = 32424-9) SAPOVIRUS (I, II, IV, V) Not detected Not detected BY PCR (test code = 05015-8) VIBRIO Not detected Not detected (PARAHAEMOLYTICUS, VULNIFICUS) (test code = 69067-4) IDALIA (test code = IDALIA) Other viruses, parasites and bacteria not targeted by this PCR panel cannot be excluded; therefore clinical correlation and follow up of serology, culture results, and other molecular studies is required. The results are not intended to be used as the sole means for clinical diagnosis or patient management decisions. This sample was tested at the [facility] Molecular Diagnostics Laboratory using the [employer] Gastrointestinal Panel. It is FDA cleared and has been verified and approved by the [facility] Molecular Diagnostics Laboratory for clinical use. This laboratory is CLIA-certified and [employer] (CAP)-accredited to perform high complexity testing. [facility] BY [id number] 08:09:12 Test Item Value Reference Range Interpretation [...] Not detected BY PCR (test code = 5675292) ENTEROPATHOGENIC E. COLI (EPEC) Not detected Not detected BY PCR (test code = 2297736) ENTEROTOXIGENIC E. COLI (ETEC) Not detected Not detected LT/ST BY PCR (test code = 9454453) SHIGA-LIKE TOXIN-PRODUCING E. Not detected Not detected COLI (STEC) STX1/STX2 (test code = 7564981) E. COLI O157 (PCR) (test code = 1695684) SHIGELLA/ENTEROINVASIVE E. COLI Not detected Not detected (EIEC) BY PCR (test code = 9755823) CRYPTOSPORIDIUM (PCR) (test code Not detected Not detected = 20151227) CYCLOSPORA CAYETANENSIS (PCR) Not detected Not detected (test code = 6125019) ENTAMOEBA HISTOLYTICA (PCR) Not detected Not detected (test code = 20160119) GIARDIA LAMBLIA (PCR) (test code Not detected Not detected = 20160120) ADENOVIRUS F 40/41 (PCR) (test Not detected Not detected code = 2503637) ASTROVIRUS (PCR) (test code = Not detected Not detected 20160122) NOROVIRUS GI/GII (PCR) (test Not detected Not detected code = 6211053) ROTAVIRUS A (PCR) (test code = Not detected Not detected 20160124) SAPOVIRUS (I, II, IV, V) BY PCR Not detected Not detected (test code = 1167265) VIBRIO (PARAHAEMOLYTICUS, Not detected Not detected VULNIFICUS) (test code = 1143116) Other viruses, parasites and bacteria not targeted by this PCR panel cannot be excluded; therefore clinical correlation and follow up of serology, culture results, and other molecular studies is required. The results are not intended to be used as the sole means for clinical diagnosis or patient management decisions. This sample was tested at the [facility] Molecular Diagnostics Laboratory using the [employer] Gastrointestinal Panel. It is FDA cleared and has been verified and approved by the [facility] Molecular Diagnostics Laboratory for clinical use. This laboratory is CLIA-certified and College of[employer] (CAP)-accredited to perform high complexity testing.POCT-GLUCOSE [id number] 08:04:19 Test Item Value Reference Range Interpretation Comments POC-GLUCOSE METER 141 mg/dL 70-110 H : TESTED A T [facility] 6720 (BEAKER) (test code = [place], 1538) 39391: Bucket Wash Operator/Techni dakota ID = [id number] for CASEY KERNS [id number] 07:09:55 Test Item Value Reference Range Interpretation Comments MAGNESIUM (BEAKER) (test code = 1.6 mg/dL 1.6-2.6 627) Bucket Wash Operator ID - DBCOMPREHENSIVE METABOLIC [id number] 07:09:54 Test Item Value Reference Range Interpretation [...] S NOT APPLICABLE FOR DIALYSIS PATIEN TS. Bucket Wash Operator ID - [id number] 06:53:54 Test Item Value Reference Range Interpretation Comments FERRITIN (BEAKER) (test code = 1616.89 ng/mL 5.00-275.00 H 361) Bucket Wash Operator ID - SHREE WCBC W/PLT COUNT & AUTO [id number] 06:20:10 Test Item Value Reference Range Interpretation [...] PERCENT (BEAKER) (test code = 2801) POCT-GLUCOSE [id number] 22:18:47 Test Item Value Reference Range Interpretation Comments POC-GLUCOSE METER 255 mg/dL 70-110 H : TESTED A T [facility] 6720 (BEAKER) (test code = [facility], 153) 26405: Bucket Wash Operator/Techni dakota ID = [id number] for Cherry Morrissey POCT-GLUCOSE [id number] 17:41:27 Test Item Value Reference Range Interpretation Comments POC-GLUCOSE METER 160 mg/dL 70-110 H : TESTED A T [facility] 6720 (BEAKER) (test code = [facility], 153) 82698: Bucket Wash Operator/Techni dakota ID = [id number] for CODY REYNOLDSASHISHMASON Sotelo POCT-GLUCOSE [id number] 11:47:30 Test Item Value Reference Range Interpretation Comments POC-GLUCOSE METER 126 mg/dL 70-110 H : TESTED A T [facility] 6720 (BEAKER) (test code = [place], 1538) [address]: Bucket Wash Operator/Techni dakota ID = [id number] for MASON LINK [id number] 11:09:58 Test Item Value Reference Range Interpretation Comments FERRITIN (BEAKER) (test code = 1216.61 ng/mL 5.00-275.00 H 361) Bucket Wash Operator ID - FATMATA WBLOOD [id number] 10:00:55 Test Item Value Reference Range Interpretation Comments CULTURE (BEAKER) (test No growth in 5 days code = 1095) The specimen volume collected for this blood culture was below the optimum (10 mL per bottle or 20 mL total). Use of lower volumes may adversely affect recovery and/or detection times of some organisms.CBC W/PLT COUNT & AUTO [id number] 07:57:54 Test Item Value Reference Range Interpretation [...] (BEAKER) (test code = 2801) COMPREHENSIVE METABOLIC [id number] 07:37:26 Test Item Value Reference Range Interpretation [...] S NOT APPLICABLE FOR DIALYSIS PATIEN TS. Bucket Wash Operator ID - [id number] 07:37:26 Test Item Value Reference Range Interpretation Comments MAGNESIUM (GENEVA) (test code = 1.5 mg/dL 1.6-2.6 L 627) Bucket Wash Operator ID - DBClostridium difficile GDH [id number] 23:10:55 Test Item Value Reference Range Interpretation Comments C. Difficle Toxin Negative Negative (test code = 5457744910) C. Difficile GDH Positive Negative A C. difficil e Antigen (test code = present but toxin 3119544765) not detected. Indicates colonization wi th non-toxigenic [...] of kit performance was done by the [facility] Microbiology Lab prior to clinical use. Lab Interpretation Abnormal (test code = 06774-4) [facility] [id number] 23:10:55 Test Item Value Reference Range Interpretation Comments C. Difficle Toxin Negative Negative (test code = 5852546753) C. Difficile GDH Positive Negative A C. difficil e Antigen (test code = present but toxin 8984438358) not detected. Indicates colonization wi th non-toxigenic [...] of kit performance was done by the [facility] Microbiology Lab prior to clinical use. Lab Interpretation Abnormal (test code = 51730-3) [facility] GDH [id number] 23:10:55 Test Item Value Reference Range Interpretation Comments C. Difficle Toxin Negative Negative (test code = 3611535056) C. Difficile GDH Positive Negative A C. difficil e Antigen (test code = present but toxin 3393849674) not detected. Indicates colonization wi th non-toxigenic [...] of kit performance was done by the [facility] Microbiology Lab prior to clinical use. Lab Interpretation Abnormal (test code = 32308-6) [facility]. DIFFICILE GDH [id number] 23:10:55 Test Item Value Reference Range Interpretation Comments CDT TOXIN (test code Negative Negative = 1135195495) CDT GDH ANTIGEN Positive Negative A C. difficile present but (test code = toxin not detec hernandez. 6786060694) Indicates colon ization with non-toxige luis antonio [...] of kit performance was done by the [facility] MicrobiologyLab prior to clinical use.POCT-GLUCOSE [id number] 21:40:07 Test Item Value Reference Range Interpretation Comments POC-GLUCOSE METER 144 mg/dL 70-110 H : TESTED A T [facility] [address] ([address]) (test code = [place] [facility], 1538) [address]: Bucket Wash Operator/Techni dakota ID = [id number] for ABE TEJADA POCT-GLUCOSE [id number] 19:13:38 Test Item Value Reference Range Interpretation Comments POC-GLUCOSE METER 71 mg/dL 70-110 : TESTED A T [facility] 6720 (BEAKER) (test code = [facility] Ishaan [facility], 1538) 027[address]: Bucket Wash Operator/Techni dakota ID = [id number] for MASON URIOSTEGUI POCT-GLUCOSE [id number] 17:28:46 Test Item Value Reference Range Interpretation Comments POC-GLUCOSE METER 156 mg/dL 70-110 H : TESTED A T [facility] 6720 (BEAKER) (test code = [facility] Ishaan [facility], 1538) 814[address]: Bucket Wash Operator/Techni dakota ID = [id number] for MASON LINK [id number] 17:03:09 Test Item Value Reference Range Interpretation Comments MAGNESIUM (BEAKER) (test code = 1.3 mg/dL 1.6-2.6 L 627) Bucket Wash Operator ID - ADMINBASIC METABOLIC [id number] 17:03:08 Test Item Value Reference Range Interpretation [...] S NOT APPLICABLE FOR DIALYSIS PATIEN TS. Bucket Wash Operator ID - ADMINVenous doppler leg, [id number] 16:49:56Ejection FractionSLEH ECHO HEARTLAB MKCKESSON [facility]illo[facility]ous doppler leg, [id number] 16:49:56Ejection FractionSLEH ECHO HEARTLAB MKCKESSON [facility]illoVenous doppler leg, [id number] 16:49:56Ejection FractionSLEH ECHO HEARTLAB MKESSON [facility]arilloBLOOD [id number] 12:01:39 Test Item Value Reference Range Interpretation Comments CULTURE (BEAKER) (test No growth in 5 days code = 1095) POCT-GLUCOSE [id number] 11:07:13 Test Item Value Reference Range Interpretation Comments POC-GLUCOSE METER 173 mg/dL 70-110 H : TESTED A T [facility] 6720 (BEAKER) (test code = [place], 1538) [address]: Bucket Wash Operator/Techni dakota ID = [id number] for MASON LINK [id number] 08:10:09 Test Item Value Reference Range Interpretation Comments MAGNESIUM (BEAKER) (test code = 1.3 mg/dL 1.6-2.6 L 627) Bucket Wash Operator ID - DBCOMPREHENSIVE METABOLIC [id number] 08:10:08 Test Item Value Reference Range Interpretation [...] S NOT APPLICABLE FOR DIALYSIS PATIEN TS. Bucket Wash Operator ID - DBCBC W/PLT COUNT & AUTO [id number] 07:40:05 Test Item Value Reference Range Interpretation [...] H PERCENT (BEAKER) (test code = 2801) [id number] 06:53:41 Test Item Value Reference Range Interpretation Comments FERRITIN (BEAKER) (test code = 1099.45 ng/mL 5.00-275.00 H 361) Bucket Wash Operator ID - SHREE WPOCT-GLUCOSE [id number] 21:23:35 Test Item Value Reference Range Interpretation Comments POC-GLUCOSE METER 196 mg/dL 70-110 H : TESTED A T [facility] 6720 (BEAKER) (test code = [facility], 1538) 63156: Bucket Wash Operator/Techni dakota ID = [id number] for Cherry Morrissey POCT-GLUCOSE [id number] 18:12:17 Test Item Value Reference Range Interpretation Comments POC-GLUCOSE METER 240 mg/dL 70-110 H : TESTED A T [facility] 6720 (BEAKER) (test code [facility], = 1538) 56495: Bucket Wash Operator/Techni dakota ID = [id number] for SD GALLO [id number] 16:01:42 Test Item Value Reference Range Interpretation Comments FERRITIN (BEAKER) (test code = 1526.03 ng/mL 5.00-275.00 H 361) Bucket Wash Operator ID - DBHEPATIC FUNCTION [id number] 14:17:51 Test Item Value Reference Range Interpretation [...] (test code = 45 U/L 6-55 347) Bucket Wash Operator ID - BSPOCT-GLUCOSE [id number] 12:52:27 Test Item Value Reference Range Interpretation Comments POC-GLUCOSE METER 165 mg/dL 70-110 H : TESTED A T [facility] 6720 (BEAKER) (test code [facility], = 1538) 81851: Bucket Wash Operator/Techni dakota ID = [id number] for SD GALLO BASIC METABOLIC [id number] 12:24:38 Test Item Value Reference Range Interpretation [...] S NOT APPLICABLE FOR DIALYSIS PATIEN TS. Bucket Wash Operator ID - BSOperator ID - [id number] 12:24:33 Test Item Value Reference Range Interpretation Comments MAGNESIUM (BEAKER) (test code = 1.3 mg/dL 1.6-2.6 L 627) Bucket Wash Operator ID - BSOperator ID - BSPOCT-GLUCOSE [id number] 08:43:31 Test Item Value Reference Range Interpretation Comments POC-GLUCOSE METER 83 mg/dL 70-110 : TESTED A T [facility] 6720 (BEAKER) (test code = [facility], 153) [address]: Bucket Wash Operator/Techni dakota ID = [id number] for SD GALLO POCT-GLUCOSE [id number] 22:05:41 Test Item Value Reference Range Interpretation Comments POC-GLUCOSE METER 190 mg/dL 70-110 H : TESTED A T [facility] 6720 (BEAKER) (test code = [facility], 1538) 51550: Bucket Wash Operator/Techni dakota ID = [id number] for SA RICH, ABE POCT-GLUCOSE [id number] 16:33:29 Test Item Value Reference Range Interpretation Comments POC-GLUCOSE METER 221 mg/dL 70-110 H : TESTED A T [facility] 6720 (BEAKER) (test code = [facility], 1538) 27924: Bucket Wash Operator/Techni dakota ID = [id number] for [place], Susanna POCT-GLUCOSE [id number] 12:08:57 Test Item Value Reference Range Interpretation Comments POC-GLUCOSE METER 127 mg/dL 70-110 H : TESTED A T [facility] 6720 (BEAKER) (test code = [facility], 1538) 91516: Bucket Wash Operator/Techni dakota ID = [id number] for [place], Susanna POCT-GLUCOSE [id number] 09:48:13 Test Item Value Reference Range Interpretation Comments POC-GLUCOSE METER 99 mg/dL 70-110 : TESTED A T [facility] 6720 (BEAKER) (test code = [facility], 1538) 32856: Bucket Wash Operator/Techni dakota ID = [id number] for EDENILSONL EMILE BETTYJASSL HEMOGLOBIN [id number] 09:05:11 Test Item Value Reference Range Interpretation Comments HEMOGLOBIN A1C 6.1 % See_Comment H [Automated m essage] ELECTROPHORESIS (BEAKER) The system which (test code = 3811) generated this result transmitted ref erence range: <=5.6%. The reference range was not used to int erpret this result as normal/abnormal . "The A1c is measured using a [facility]-certified method. HbA1c value equal to or greater than 6.5% as thediagnosis cutoff for diabetes. An HbA1c value of 5.7- 6.4% indicates increased risk for diabetes (prediabetes)."Bucket Wash Operator ID - ADM COMPREHENSIVE METABOLIC [id number] 06:09:47 Test Item Value Reference Range Interpretation [...] S NOT APPLICABLE FOR DIALYSIS PATIEN TS. Bucket Wash Operator ID - [id number] 05:58:32 Test Item Value Reference Range Interpretation Comments MAGNESIUM (BEAKER) (test code = 1.3 mg/dL 1.6-2.6 L 627) Bucket Wash Operator ID - [id number] 05:58:32 Test Item Value Reference Range Interpretation Comments PHOSPHORUS (BEAKER) (test code = 2.8 mg/dL 2.3-4.7 604) Bucket Wash Operator ID - BSCBC W/PLT COUNT & AUTO [id number] 05:24:08 Test Item Value Reference Range Interpretation [...] PERCENT (BEAKER) (test code = 2801) POCT-GLUCOSE [id number] 21:20:25 Test Item Value Reference Range Interpretation Comments POC-GLUCOSE METER 186 mg/dL 70-110 H : TESTED A T [facility] 6720 (BEAKER) (test code = [place], 1538) [address]: Bucket Wash Operator/Techni dakota ID = [id number] for JUAN JOSÉ GIRON [id number] 18:54:47 Test Item Value Reference Range Interpretation Comments FERRITIN (BEAKER) (test code = 1911.44 ng/mL 5.00-275.00 H 361) Bucket Wash Operator ID - BSCOMPREHENSIVE METABOLIC [id number] 18:12:55 Test Item Value Reference Range Interpretation [...] S NOT APPLICABLE FOR DIALYSIS PATIEN TS. Bucket Wash Operator ID - [id number] 18:12:55 Test Item Value Reference Range Interpretation Comments MAGNESIUM (BEAKER) (test code = 1.4 mg/dL 1.6-2.6 L 627) Bucket Wash Operator ID - [id number] 18:12:55 Test Item Value Reference Range Interpretation Comments PHOSPHORUS (BEAKER) (test code = 3.0 mg/dL 2.3-4.7 604) Bucket Wash Operator ID - BSCOMPLEMENT COMPONENT [id number] 18:09:15 Test Item Value Reference Range Interpretation Comments C4 COMPLEMENT (BEAKER) (test code = 4 mg/dL 15-57 L 394) Bucket Wash Operator ID - BSCOMPLEMENT COMPONENT [id number] 18:09:15 Test Item Value Reference Range Interpretation Comments C3 COMPLEMENT (BEAKER) (test code = 31 mg/dL 82-193 L 393) Bucket Wash Operator ID - BSCBC W/PLT COUNT & AUTO [id number] 17:46:55 Test Item Value Reference Range Interpretation [...] PERCENT (BEAKER) (test code = 2801) POCT-GLUCOSE [id number] 17:32:52 Test Item Value Reference Range Interpretation Comments POC-GLUCOSE METER 216 mg/dL 70-110 H : TESTED A T [facility] 6720 (BEAKER) (test code = [place], 1538) 87465: Bucket Wash Operator/Techni dakota ID = [id number] for Kevin Smith RAD, SHOULDER, COMPLETE (MIN 2 VIEWS), [id number] 14:45:00Reason for exam:- >kalsominer steroid use, [facility] 2000 Sex: MFINAL REPORT CLINICAL HISTORY: kalsominer steroid use, 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 There is no fracture or dislocation. Signed: [facility]arcie Williamson [facility] Verified Date/Time: 09/12/2021 14:45:48 Reading Location: [facility] Radiology Reading Room RAD, SHOULDER, COMPLETE (MIN 2 VIEWS), [id number] 14:45:00Reason for exam:->kalsominer steroid use, [facility] : 2000 Sex: MFINAL REPORT CLINICAL HISTORY: skilled nursing steroid use, 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 There is no fracture or dislocation. Signed: Darcie Williamson Verified Date/Time: 09/12/2021 14:45:48 Reading Location: [facility] Radiology Reading Room RAD, HIPS, 2 VIEWS, [id number] 14:29:00Reason for exam:->skilled nursing steroid use, [facility] : 2000 Sex: MFINAL REPORT CLINICAL HISTORY: skilled nursing steroid use, eval AVN TECHNIQUE: 2 views of the bilateral hips COMPARISON: None IMPRESSION: There is bilateral hip joint space narrowing. Subtle sclerosis and flattening of the left femoral head is suspected, possibly representing avascular necrosis given the clinical history. The right femoral head contour appears preserved. Signed: Darice Williamson Verified Date/Time: 09/12/2021 14:29:16 Reading Location: [facility] Radiology Reading Room POCT-GLUCOSE [id number] 11:50:18 Test Item Value Reference Range Interpretation Comments POC-GLUCOSE METER 129 mg/dL 70-110 H : TESTED A T [facility] 6720 (BECAMILO) (test code = [place], 1538 [address]: Bucket Wash Operator/Techni dakota ID = [id number] for Kevin Smith, HAND, 3 VIEWS, [id number] 11:47:00Reason for exam:->rheumatoid arthritis[facility] : 2000 Sex: MFINAL [...] MDReport Verified Date/Time: 09/12/2021 11:47:37 Reading Location: [facility] Radiology Reading Room Electronically signed by: DARCIE WILLIAMSON M.D. on 022 11:47 AMRAD, HAND, 3 VIEWS, [id number] 11:47:00Reason for exam:- >[facility]oid [facility] : 2000 Sex: MFINAL [...] MDReport Verified Date/Time: 09/12/2021 11:47:37 Reading Location: [facility] Radiology Reading Room Electronically signed by: DARCIE WILLIAMSON M.D. on 022 11:47 AMPOCT-GLUCOSE [id number] 10:21:03 Test Item Value Reference Range Interpretation Comments POC-GLUCOSE METER 88 mg/dL 70-110 : [facility] [address] ([address]) (test code = [facility], 1538) 18524: Bucket Wash Operator/Techni dakota ID = [id number] for Kevin Garcia PROTEIN, RANDOM [id number] 06:25:49 Test Item Value Reference Range Interpretation Comments PROTEIN, URINE (BEAKER) (test code 177 mg/dL 0-14 H = 1569) Bucket Wash Operator ID - DBCREATININE, RANDOM [id number] 06:25:48 Test Item Value Reference Range Interpretation Comments CREATININE URINE (BEAKER) (test 106.5 mg/dL code = 375) Reference Range: No NormalsOperator ID - DBPOCT-GLUCOSE [id number] 22:19:10 Test Item Value Reference Range Interpretation Comments POC-GLUCOSE METER 219 mg/dL 70-110 H : TESTED A T [facility] 6720 (BEJumpStart) (test code = [facility], 1538) 79076: Bucket Wash Operator/Techni dakota ID = [id number] for Cherry Morrissey POCT-GLUCOSE [id number] 20:21:14 Test Item Value Reference Range Interpretation Comments POC-GLUCOSE METER 257 mg/dL 70-110 H : TESTED A T [facility] 6720 (GENEVA) (test code = [place], 1538) [address]: Bucket Wash Operator/Techni dakota ID = [id number] for Deborah Martel [place], [id number] 16:58:00Unlisted Reason for Exam - Click Yes and Enter Reason Below->Noeval prior pancreatitis for further necrosis or abscess, worsening leukocytosis and tachycardiaIs this for enterography?->NoWill this procedure require oral contrast?->No [facility] 2000 Sex: MFINAL REPORT [...] Manish Novak Verified Date/Time: 09/11/2021 16:58:30 -GLUCOSE [id number] 11:46:33 Test Item Value Reference Range Interpretation Comments POC-GLUCOSE METER 277 mg/dL 70-110 H : TESTED A T [facility] 6720 (BEAKER) (test code = [facility], 1538) 28009: Bucket Wash Operator/Techni dakota ID = [id number] for JO MILLER COMPREHENSIVE METABOLIC [id number] 10:25:23 Test Item Value Reference Range Interpretation [...] S NOT APPLICABLE FOR DIALYSIS PATIEN TS. Bucket Wash Operator ID - [id number] 10:13:10 Test Item Value Reference Range Interpretation Comments MAGNESIUM (BEAKER) (test code = 1.9 mg/dL 1.6-2.6 627) Bucket Wash Operator ID - [id number] 10:13:10 Test Item Value Reference Range Interpretation Comments PHOSPHORUS (BEAKER) (test code = 2.5 mg/dL 2.3-4.7 604) Bucket Wash Operator ID - DBCBC W/PLT COUNT & AUTO [id number] 10:02:45 Test Item Value Reference Range Interpretation [...] PERCENT (BEAKER) (test code = 2801) POCT-GLUCOSE [id number] 07:31:40 Test Item Value Reference Range Interpretation Comments POC-GLUCOSE METER 310 mg/dL 70-110 H : TESTED A T [facility] 6720 (BEAKER) (test code = [place], 1538) [address]: Bucket Wash Operator/Techni dakota ID = [id number] for JO MILLER BLOOD [id number] 03:00:54 Test Item Value Reference Range Interpretation Comments CULTURE (BEAKER) (test No growth in 5 days code = 1095) BLOOD [id number] 03:00:53 Test Item Value Reference Range Interpretation Comments CULTURE (BEAKER) (test No growth in 5 days code = 1095) POCT-GLUCOSE [id number] 21:11:52 Test Item Value Reference Range Interpretation Comments POC-GLUCOSE METER 286 mg/dL 70-110 H : TESTED A T [facility] 6720 (BEAKER) (test code [facility], = 1538) 88928: Bucket Wash Operator/Techni dakota ID = [id number] for BERNY SMYTH [id number] 12:52:50 Test Item Value Reference Range Interpretation Comments PROCALCITONIN (BEAKER) (test code 5.84 ng/mL <0.05 H = 3036) SEPSIS RISK (ng/mL)Low: 0.05-0.50Intermediate: 0.51-2.00High: >=2.01APTT 2021-09-10 12:05:26 Test Item Value Reference Range Interpretation Comments PARTIAL THROMBOPLASTIN TIME 27.5 seconds 22.5-36.0 (BEAKER) (test code = 760) PROTHROMBIN TIME/[id number] 12:04:41 Test Item Value Reference Range Interpretation Comments PROTIME (BEAKER) 16.4 seconds 11.9-14.2 H (test code = 759) INR (BEAKER) (test 1.34 See_Comment [Automat ed message] code = 370) The system [employer] generated this result transmitted ref erence range: <=5.90. The reference range was not used to int erpret this result as normal/abnormal . RECOMMENDED COUMADIN/WARFARIN INR THERAPY RANGESSTANDARD DOSE: 2.0 - 3.0 Includes: PROPHYLAXIS for venous thrombosis, systemic embolization; TREATMENT for venous thrombosis and/or pulmonary embolus.HIGH RISK: Target INR is 2.5-3.5 for patients with mechanical heart valves.LACTIC ACID, [id number] 11:42:21 Test Item Value Reference Range Interpretation Comments LACTATE BLOOD VENOUS 1.13 mmol/L 0.50-2.20 Specime n slightly (2) (BEAKER) (test hemolyzed code = 2872) Bucket Wash Operator ID - DBRAD, CHEST, 1 VIEW, NON [id number] 09:41:00Reason for exam:- >eval for pnaShould this be performed at the bedside?->Yes [facility] 2000 Sex: MFINAL [...] MDReport Verified Date/Time: 09/10/2021 09:41:13 Reading Location: [address] Consult Reading Room (CELLAVISION MANUAL DIFF)2021-09-10 [...] CONCENTRATION Adequate (CELLAVISION)(BEAKER) (test code = 3438) Bucket Wash Operator ID - HannaOperator ID - Rebecca Elizondo comments: Slide comments: CBC W/PLT COUNT & AUTO [id number] 07:30:14 Test Item Value Reference Range Interpretation [...] (BEAKER) (test code = 413) COMPREHENSIVE METABOLIC [id number] 05:40:15 Test Item Value Reference Range Interpretation [...] S NOT APPLICABLE FOR DIALYSIS PATIEN TS. Bucket Wash Operator ID Cherelle LÓPEZ [id number] 05:38:41 Test Item Value Reference Range Interpretation Comments MAGNESIUM (BEAKER) (test code = 1.5 mg/dL 1.6-2.6 L 627) Bucket Wash Operator ID Cherelle LÓPEZ [id number] 05:38:41 Test Item Value Reference Range Interpretation Comments PHOSPHORUS (BEAKER) (test code = 1.7 mg/dL 2.3-4.7 L 604) Bucket Wash Operator ID - PIAYA LPOCT-GLUCOSE [id number] 21:08:40 Test Item Value Reference Range Interpretation Comments POC-GLUCOSE METER 113 mg/dL 70-110 H : TESTED A T [facility] 6720 (BEAKER) (test code = [facility], 1538) 60377: Bucket Wash Operator/Techni dakota ID = [id number] for SOMMER LYNN POCT-GLUCOSE [id number] 16:29:13 Test Item Value Reference Range Interpretation Comments POC-GLUCOSE METER 123 mg/dL 70-110 H : TESTED A T [facility] 6720 (BEAKER) (test code = [facility], 1538) 15277: Bucket Wash Operator/Techni dakota ID = [id number] for JO MILLER COMPREHENSIVE METABOLIC [id number] 15:30:31 Test Item Value Reference Range Interpretation [...] S NOT APPLICABLE FOR DIALYSIS PATIEN TS. Bucket Wash Operator ID - ALVINA M2D Echo W/O Doppler(No Doppler)2021-09-09 14:32:05 Test Item Value Reference Range Interpretation Comments Ejection Fraction Est EF is 55-60% (test code = 2574) Radiology Study observation (narrative) (test code = 50813-6) PXN (test code = Sarah Travis PXN) - 09/09/2021 Transthoracic Echocardiography Report (TTE) Demographics Patient Name YAMILE, Date of Study 09/09/2021 [place] Gender Male Visit Number [id number] Race Unknown Room Number C622 Number Date of 2000 Referring Babita Cano Physician Age 21 year(s) [employer]onderite Operator Sandy Wilde, [facility] Interpreting Sarah Travis MD [...] CO: 6.81 l/min LVOT CI: 3.35 l/min/m^2 [facility] Echo W/O Doppler(No Doppler)2021-09-09 14:32:05 Test Item Value Reference Range Interpretation Comments Ejection Fraction Est EF is 55-60% (test code = 2574) Radiology Study observation (narrative) (test code = 29556-5) PXN (test code = Sarah Travis PXN) - 09/09/2021 Transthoracic Echocardiography Report (TTE) Demographics Patient Name YAMILE, Date of Study 09/09/2021 [place] Gender Male Visit Number [id number] Race Unknown Room Number C622 Number Date of 2000 Referring Babita Cano Physician Age 21 year(s) [place]ite Operator Sandy Wilde, [facility] Interpreting Sarah Travis MD [...] CO: 6.81 l/min LVOT CI: 3.35 l/min/m^2 [facility] Echo W/O Doppler(No Doppler)2021-09-09 14:32:05 Test Item Value Reference Range Interpretation Comments Ejection Fraction Est EF is 55-60% (test code = 2574) Radiology Study observation (narrative) (test code = 56930-3) PXN (test code = Sarah Travis PXN) - 09/09/2021 Transthoracic Echocardiography Report (TTE) Demographics Patient Name YAMILE, Date of Study 09/09/2021 [place] Gender Male Visit Number [id number] Race Unknown Room Number C622 Number Date of 2000 Referring Babita Cano Physician Age 21 year(s) [place] Operator Sandy Wilde, [facility] Interpreting Sarah Travis MD [...] CO: 6.81 l/min LVOT CI: 3.35 l/min/m^2 [facility] [id number] 11:38:39 Test Item Value Reference Range Interpretation Comments POC-GLUCOSE METER 137 mg/dL 70-110 H : TESTED A T [facility] [address] ([address]) (test code = [facility], 153) 64463: Bucket Wash Operator/Techni dakota ID = [id number] for LIENCherelleJO RIOS POCT-GLUCOSE [id number] 06:55:56 Test Item Value Reference Range Interpretation Comments POC-GLUCOSE METER 151 mg/dL 70-110 H : TESTED A T [facility] [address] ([address]) (test code = [facility], 153) 399[address]: Bucket Wash Operator/Techni dakota ID = [id number] for JESSENIA ESCOBAR POCT-GLUCOSE [id number] 21:19:46 Test Item Value Reference Range Interpretation Comments POC-GLUCOSE METER 174 mg/dL 70-110 H : TESTED A T [facility] 6720 (BEAKER) (test code = [facility], 1538) 56623: Bucket Wash Operator/Techni dakota ID = [id number] for KAVITHA ESCOBAR POCT-GLUCOSE [id number] 19:52:47 Test Item Value Reference Range Interpretation Comments POC-GLUCOSE METER 173 mg/dL 70-110 H : TESTED A T [facility] 6720 (BEAKER) (test code = [facility], 1538) 60114: Bucket Wash Operator/Techni dakota ID = [id number] for JENNIFER ARCINIEGA MRSA [id number] 15:07:47 Test Item Value Reference Range Interpretation Comments Result (test code = 6463-4) No [facility] [id number] 15:07:47 Test Item Value Reference Range Interpretation Comments Result (test code = 6463-4) No [facility] [id number] 15:07:47 Test Item Value Reference Range Interpretation Comments Result (test code = 6463-4) No [facility] [id number] 15:07:47 Test Item Value Reference Range Interpretation Comments CULTURE (AKER) (test code No MRSA isolated = 1095) POCT-GLUCOSE [id number] 11:36:26 Test Item Value Reference Range Interpretation Comments POC-GLUCOSE METER 268 mg/dL 70-110 H : TESTED A T [facility] 6720 (BEAKER) (test code = [facility], 1538) 25092: Bucket Wash Operator/Techni dakota ID = [id number] for JENNIFER ARCINIEGA POCT-GLUCOSE [id number] 09:21:21 Test Item Value Reference Range Interpretation Comments POC-GLUCOSE METER 283 mg/dL 70-110 H : TESTED A T [facility] 6720 (BEAKER) (test code = [facility], 1538) 78701: Bucket Wash Operator/Techni dakota ID = [id number] for JENNIFER ARCINIEGA ANTI-MITOCHONDRIAL AB, REFLEX TO [id number] 07:58:16 Test Item Value Reference Range Interpretation Comments SCAN RESULT (test code = 7129127) POCT-GLUCOSE [id number] 05:15:53 Test Item Value Reference Range Interpretation Comments POC-GLUCOSE METER 266 mg/dL 70-110 H : [facility] (BEAKER) (test code = [place], 1538) 546[address]: Bucket Wash Operator/Techni dakota ID = [id number] for KAVITHA ESCOBAR COMPREHENSIVE METABOLIC [id number] 04:59:08 Test Item Value Reference Range Interpretation [...] S NOT APPLICABLE FOR DIALYSIS PATIEN TS. Bucket Wash Operator ID - ALVINA [id number] 04:55:48 Test Item Value Reference Range Interpretation Comments MAGNESIUM (BEAKER) (test code = 1.7 mg/dL 1.6-2.6 627) Bucket Wash Operator ID - ALVINA UVFWVRWJMSY6726-27-35 04:55:48 Test Item Value Reference Range Interpretation Comments PHOSPHORUS (BEAKER) (test code = 1.6 mg/dL 2.3-4.7 L 604) Bucket Wash Operator ID - ALVINA MCBC W/PLT COUNT & AUTO [id number] 04:52:53 Test Item Value Reference Range Interpretation [...] PERCENT (BEAKER) (test code = 2801) POCT-GLUCOSE [id number] 23:21:41 Test Item Value Reference Range Interpretation Comments POC-GLUCOSE METER 268 mg/dL 70-110 H : TESTED A T [facility] 6720 (BEAKER) (test code = [facility], 1538) 68498: Bucket Wash Operator/Techni dakota ID = [id number] for KAVITHA ESCOBAR POCT-GLUCOSE [id number] 18:55:01 Test Item Value Reference Range Interpretation Comments POC-GLUCOSE METER 240 mg/dL 70-110 H : TESTED A T [facility] 6720 (BEAKER) (test code = [facility] [employer] [facility], 1538) 12075: Bucket Wash Operator/Techni dakota ID = [id number] for As Isiah mckeon PERIPHERAL BLOOD SMEAR - PATHOLOGIST [id number] 16:19:01 Test Item Value Reference Range Interpretation [...] MORPHOLOGY No Satellitosis (BEAKER) (test code = 995268) PLT MORPHOLOGY See comment Decreased in number (BEAKER) (test with normal code = 850883) morphology. R are to Occasional larg e forms. [facility]-PATHOLOGIST- Yvan Campoverde MD 6112 (BEAKER) (electronic (test code = signature) 2841) Urinalysis w/Microscopic + Reflex to [id number] 14:42:51 Test Item Value Reference Range Interpretation Comments Color, UA (test code Yellow = 5778-6) Clarity, UA (test Clear code = 5767-9) Specific [place], UA 1.025 1.001-1.035 (test code = 5811-5) pH, UA (test code = 6.0 5.0-8.0 5803-2) Protein, UA (test 100 mg/dL Negative A code = 44270-8) Glucose, UA (test 70 mg/dL Negative A code = 365) Ketones, UA (test 40 mg/dL Negative A code = 2514-8) Bilirubin, UA (test Negative Negative code = 83658-4) Blood, UA (test code Large Negative A = 47875-1) Nitrite, UA (test Negative Negative code = 5802-4) Leukocytes, UA (test Negative Negative code = 5799-2) Urobilinogen, UA 0.2 mg/dL 0.2-1.0 (test code = 14225-3) RBC, UA (test code = 30 See_Comment [Autom ated 34402-4) message] The system which generated this result [...] Bacteria, UA (test None Seen code = 55651-1) Mucus (test code = Few 8247-9) Hyaline Casts, UA 1 See_Comment [Automate d (test code = 37341-1) messag e] The system which generated this [...] Crystals, Urine (test None Seen code = 28018-1) Specimen Source (test code = 2795) IDALIA (test code = IDALIA) Bucket Wash Operator ID - [auto]Bucket Wash Operator ID - tech Lab Interpretation Abnormal (test code = 57236-0) [facility] + Reflex to Culture 2021-09-07 14:42:51 Test Item Value Reference Range Interpretation Comments Color, UA (test code Yellow = 5778-6) Clarity, UA (test Clear code = 5767-9) Specific [place], UA 1.025 1.001-1.035 (test code = 5811-5) pH, UA (test code = 6.0 5.0-8.0 5803-2) Protein, UA (test 100 mg/dL Negative A code = 03605-3) Glucose, UA (test 70 mg/dL Negative A code = 365) Ketones, UA (test 40 mg/dL Negative A code = 2514-8) Bilirubin, UA (test Negative Negative code = 54452-7) Blood, UA (test code Large Negative A = 70846-3) Nitrite, UA (test Negative Negative code = 5802-4) Leukocytes, UA (test Negative Negative code = 5799-2) Urobilinogen, UA 0.2 mg/dL 0.2-1.0 (test code = 04544-2) RBC, UA (test code = 30 See_Comment [Autom ated 01917-5) message] The system which generated this result [...] Bacteria, UA (test None Seen code = 75069-7) Mucus (test code = Few 8247-9) Hyaline Casts, UA 1 See_Comment [Automate d (test code = 52749-8) messag e] The system which generated this [...] Crystals, Urine (test None Seen code = 39227-2) Specimen Source (test code = 2795) IDALIA (test code = IDALIA) Bucket Wash Operator ID - [auto]Bucket Wash Operator ID - tech Lab Interpretation Abnormal (test code = 91536-6) [facility]/Microscopic + Reflex to Culture 2021-09-07 14:42:51 Test Item Value Reference Range Interpretation Comments Color, UA (test code Yellow = 5778-6) Clarity, UA (test Clear code = 5767-9) Specific [place], UA 1.025 1.001-1.035 (test code = 5811-5) pH, UA (test code = 6.0 5.0-8.0 5803-2) Protein, UA (test 100 mg/dL Negative A code = 63236-7) Glucose, UA (test 70 mg/dL Negative A code = 365) Ketones, UA (test 40 mg/dL Negative A code = 2514-8) Bilirubin, UA (test Negative Negative code = 09565-4) Blood, UA (test code Large Negative A = 41781-6) Nitrite, UA (test Negative Negative code = 5802-4) Leukocytes, UA (test Negative Negative code = 5799-2) Urobilinogen, UA 0.2 mg/dL 0.2-1.0 (test code = 14163-1) RBC, UA (test code = 30 See_Comment [Autom ated 88597-6) message] The system which generated this result [...] Bacteria, UA (test None Seen code = 56136-8) Mucus (test code = Few 8247-9) Hyaline Casts, UA 1 See_Comment [Automate d (test code = 17628-8) messag e] The system which generated this [...] Crystals, Urine (test None Seen code = 42004-7) Specimen Source (test code = 2795) IDALIA (test code = IDALIA) Bucket Wash Operator ID - [auto]Bucket Wash Operator ID - tech Lab Interpretation Abnormal (test code = 43309-0) [facility]/ REFLEX URINE [id number] 14:42:51 Test Item Value Reference Range Interpretation [...] = 1521) SOURCE(BEAKER) (test code = 2795) Bucket Wash Operator ID - [auto]Bucket Wash Operator ID - zivrUPNQNXTHWSAFR6248-01-30 13:45:54 Test Item Value Reference Range Interpretation Comments PROCALCITONIN (BEAKER) (test code 41.89 ng/mL <0.05 HH = 3036) SEPSIS RISK (ng/mL)Low: 0.05-0.50Intermediate: 0.51-2.00High: >=2.01 [id number] 13:10:47 Test Item Value Reference Range Interpretation Comments HAPTOGLOBIN (BEAKER) (test code = 367 mg/dL 14-258 H 366) Bucket Wash Operator ID - BSOperator ID - BSCOMPREHENSIVE METABOLIC [id number] 12:56:57 Test Item Value Reference Range Interpretation [...] S NOT APPLICABLE FOR DIALYSIS PATIEN TS. Bucket Wash Operator ID - BSHEPATIC FUNCTION [id number] 12:56:40 Test Item Value Reference Range Interpretation [...] Specimen slightly (test code = 347) hemolyzed Bucket Wash Operator ID - [id number] 12:56:40 Test Item Value Reference Range Interpretation Comments LIPASE (BEAKER) (test code = 749) 132 U/L 8-78 H Bucket Wash Operator ID - [id number] 12:56:39 Test Item Value Reference Range Interpretation Comments MAGNESIUM (BEAKER) 1.9 mg/dL 1.6-2.6 Specimen slightly (test code = 627) hemolyzed Bucket Wash Operator ID - [id number] 12:56:39 Test Item Value Reference Range Interpretation Comments PHOSPHORUS (BEAKER) 2.9 mg/dL 2.3-4.7 Specimen slightly (test code = 604) hemolyzed Bucket Wash Operator ID - BSVANCOMYCIN LEVEL, [id number] 12:51:35 Test Item Value Reference Range Interpretation Comments VANCOMYCIN TROUGH (BEAKER) (test 14.4 ug/mL 10.0-20.0 code = 522) Bucket Wash Operator ID - [id number] 12:43:54 Test Item Value Reference Range Interpretation Comments FIBRINOGEN LEVEL (BEAKER) (test 715 mg/dl 225-434 H code = 658) HEMOGLOBIN AND [id number] 12:34:38 Test Item Value Reference Range Interpretation Comments HEMOGLOBIN (BEAKER) (test code = 8.0 GM/DL 13.7-17.5 L 410) HEMATOCRIT (BEAKER) (test code = 26.2 % 40.1-51.0 L 411) Bucket Wash Operator ID - 6000POCT-GLUCOSE [id number] 12:12:10 Test Item Value Reference Range Interpretation Comments POC-GLUCOSE METER 152 mg/dL 70-110 H : [facility] (BEAKER) (test code = [place], 1538) 35[address]: Bucket Wash Operator/Techni dakota ID = [id number] for Patrick Perez ANTI-DNA [id number] 11:19:56 Test Item Value Reference Range Interpretation Comments ANTI-DNA TITER (BEAKER) (test code = :80 1553) DOUBLE-STRANDED DNA (DSDNA) [id number] 11:19:49 Test Item Value Reference Range Interpretation Comments ANTI-DNA DS (BEAKER) (test code = Positive Negative 1055) ANTI-DNA [id number] 11:19:10 Test Item Value Reference Range Interpretation Comments ANTI-DNA TITER (BEAKER) (test code = :80 1553) DOUBLE-STRANDED DNA (DSDNA) [id number] 11:19:04 Test Item Value Reference Range Interpretation Comments ANTI-DNA DS (BEAKER) (test code = Positive Negative 1055) LACTATE DEHYDROGENASE (LDH)2021-09-07 10:00:12 Test Item Value Reference Range Interpretation Comments LACTATE DEHYDROGENASE (BEAKER) (test 723 U/L 125-220 H code = 635) Bucket Wash Operator ID - BSBILIRUBIN, [id number] 10:00:11 Test Item Value Reference Range Interpretation Comments BILIRUBIN DIRECT (BEAKER) (test 0.8 mg/dL 0.1-0.5 H code = 706) Bucket Wash Operator ID - BSCBC W/PLT COUNT & AUTO [id number] 08:25:03 Test Item Value Reference Range Interpretation [...] CONCENTRATION Decreased (CELLAVISION)(BEAKER) (test code = 3438) Bucket Wash Operator ID - [id number] ID - Kyree comments: Slide comments:B-TYPE NATRIURETIC FACTOR (BNP)2021-09-07 06:31:12 Test Item Value Reference Range Interpretation Comments B-TYPE NATRIURETIC PEPTIDE (BEAKER) 269 pg/mL 0-100 H (test code = 700) Bucket Wash Operator ID - BSLACTIC ACID, [id number] 06:10:21 Test Item Value Reference Range Interpretation Comments LACTATE BLOOD VENOUS (2) (BEAKER) 0.76 mmol/L 0.50-2.20 (test code = 2872) Bucket Wash Operator ID - WVMBCO-[id number] 03:08:41 Test Item Value Reference Range Interpretation Comments POC-Glucose (test code = 153 mg/dL 70-110 H : T ESTED AT [facility] 1855) 67[address] [facility], 770 30: Bucket Wash Operator/Techni dakota ID = [id number] for URCIA, FAMELA Lab Interpretation (test Abnormal code = 00613-8) [facility] StanfordWmglhrQUMM-SUBFAMNDJG2738-28-21 03:08:41 Test Item Value Reference Range Interpretation Comments POC-Hematocrit (test code 21 % 40-50 L : = 1857) Bucket Wash Operator/Techni dakota ID = [id number] for URCIA, FAMELA Lab Interpretation (test Abnormal code = 13538-9) [facility] StanfordPOCT-[id number] 03:08:41 Test Item Value Reference Range Interpretation Comments POC-Glucose (test code = 153 mg/dL 70-110 H : T ESTED AT [facility] 1855) [address] [facility], 770 30: Bucket Wash Operator/Techni dakota ID = [id number] for URCIA, FAMELA Lab Interpretation (test Abnormal code = 78198-4) [facility] StanfordPopjarUQGR-LVSNPHQWQJ4782-82-21 03:08:41 Test Item Value Reference Range Interpretation Comments POC-Hematocrit (test code 21 % 40-50 L : = 1857) Bucket Wash Operator/Techni dakota ID = [id number] for URCIA, FAMELA Lab Interpretation (test Abnormal code = 84214-4) [facility] StanfordPOCT-[id number] 03:08:41 Test Item Value Reference Range Interpretation Comments POC-Glucose (test code = 153 mg/dL 70-110 H : T ESTED AT [facility] 1855) [address] [place] [address], 770 30: Bucket Wash Operator/Techni dakota ID = [id number] for URCIA, FAMELA Lab Interpretation (test Abnormal code = 43584-6) [facility]-[id number] 03:08:41 Test Item Value Reference Range Interpretation Comments POC-Hematocrit (test code 21 % 40-50 L : = 1857) Bucket Wash Operator/Techni dakota ID = [id number] for URCIA, FAMELA Lab Interpretation (test Abnormal code = 65748-3) [facility] StanfordJbbbrkIFTX-DGNNJTWZQG7527-63-21 03:08:41 Test Item Value Reference Range Interpretation Comments POC-HEMATOCRIT 21 % 40-50 L : Bucket Wash Operator/Te chnician ID = (BEAKER) (test code = 870180 for URCIA, FAMELA 1857) [id number] 03:08:41 Test Item Value Reference Range Interpretation Comments POC-GLUCOSE (BEAKER) 153 mg/dL 70-110 H : TESTE D AT [facility] 6720 (test code = 1855) [facility], [address]: Bucket Wash Operator/Techni dakota ID = [id number] for URCI A, FAMELA LLI-[id number] 03:08:40 Test Item Value Reference Range Interpretation Comments POC-Potassium (test code 3.8 meq/L 3.6-5.5 : T ESTED AT [facility] = 1540) [address] [place] [address], [facility] 30: Bucket Wash Operator/Techni dakota ID = [id number] for URCIA, FAMELA Lab Interpretation (test Normal code = 69055-7) [facility]-ISEZYBTMIP4520-14-28 03:08:40 Test Item Value Reference Range Interpretation Comments POC-Hemoglobin (test code 7.1 g/dL 13.0-16.8 L : TESTED AT [facility] = 1856) [address] [place] [address], [facility] 30: Bucket Wash Operator/Techni dakota ID = [id number] for URCIA, FAMELA Lab Interpretation (test Abnormal code = 45822-1) [facility]-Nxggxsbsx2181-60-79 03:08:40 Test Item Value Reference Range Interpretation Comments POC-Potassium (test code 3.8 meq/L 3.6-5.5 : T ESTED AT [facility] = 1540) [address] [place] [address], [facility] 30: Bucket Wash Operator/Techni dakota ID = [id number] for URCIA, FAMELA Lab Interpretation (test Normal code = 89617-6) [facility] 03:08:40 Test Item Value Reference Range Interpretation Comments POC-Hemoglobin (test code 7.1 g/dL 13.0-16.8 L : TESTED AT [facility] = 1856) [address] [place] [address], [facility] 30: Bucket Wash Operator/Techni dakota ID = [id number] for URCIA, FAMELA Lab Interpretation (test Abnormal code = 99376-7) [facility]-Dsluvxxsv5808-64-74 03:08:40 Test Item Value Reference Range Interpretation Comments POC-Potassium (test code 3.8 meq/L 3.6-5.5 : T ESTED AT [facility] = 1540) [address] [place] [address], [facility] 30: Bucket Wash Operator/Techni dakota ID = [id number] for URCIA, FAMELA Lab Interpretation (test Normal code = 38840-1) [facility]DKUCMJACNK0324-69-12 03:08:40 Test Item Value Reference Range Interpretation Comments POC-Hemoglobin (test code 7.1 g/dL 13.0-16.8 L : [facility] [address] [place] [address], 770 30: Bucket Wash Operator/Techni dakota ID = [id number] for URCIA, FAMELA Lab Interpretation (test Abnormal code = 69459-1) [facility] CampusDosrstJHUB-UMSJMTQTM7919-82-21 03:08:40 Test Item Value Reference Range Interpretation Comments POC-POTASSIUM 3.8 meq/L 3.6-5.5 : [facility] 6720 [facility] (test code [facility], = 1540) [address]: Bucket Wash Operator/Techni dakota ID = [id number] for URCI A, FAMELA KQWJ-HQDGLEESHK7411-31-21 03:08:40 Test Item Value Reference Range Interpretation Comments POC-HEMOGLOBIN 7.1 g/dL 13.0-16.8 L : TESTED AT [place] [address] ([facility]) (test code = DONNA Ishaan [facility], 1856) [address]: Bucket Wash Operator/Techni dakota ID = [id number] for URCI A, FAMELA POC-Blood gases, ccpqvdjv1218-76-38 03:08:39 Test Item Value Reference Range Interpretation [...] tomated message] code = 1838) The system whic h generated this result transmit hernandez reference range : 80.0 - 90.0 mm Hg. The reference r colby was not used to interpret this result as normal/abnormal . SO2, Arterial-POC (test 91.0 % 96.0-97.0 L code = 1839) HCO3, Arterilal-POC 22.2 meq/L 21.0-29.0 (test code = 1840) BE, Arterial-POC (test -2.0 meq/L -2.0-3.0 : LIONEL HERNANDEZ AT [facility] code = 1841) [address] [facility] [place] [place], [address]: Bucket Wash Operator/Techni dakota ID = [id number] for URCIA, FAMELA Lab Interpretation Abnormal (test code = 65345-6) [facility]-Betufw6803-13-43 03:08:39 Test Item Value Reference Range Interpretation Comments POC-Sodium (test code = 134 meq/L 135-148 L : TE STED AT [facility] 1542) 6720 [facility] [place], 770 30: Bucket Wash Operator/Techni dakota ID = [id number] for URCIA, FAMELA Lab Interpretation (test Abnormal code = 74901-4) [facility]-Blood gases, ggchexak9516-03-50 03:08:39 Test Item Value Reference Range Interpretation [...] tomated message] code = 1838) The system [employer] generated this result transmit hernandez reference range : 80.0 - 90.0 mm Hg. The reference r colby was not used to interpret this result as normal/abnormal . SO2, Arterial-POC (test 91.0 % 96.0-97.0 L code = 1839) HCO3, Arterilal-POC 22.2 meq/L 21.0-29.0 (test code = 1840) BE, Arterial-POC (test -2.0 meq/L -2.0-3.0 : LIONEL HERNANDEZ AT [facility] code = 1841) [address] [facility] [place] [place], [address]: Bucket Wash Operator/Techni dakota ID = [id number] for URCIA, FAMELA Lab Interpretation Abnormal (test code = 16380-8) [facility]-Kaqulc1295-80-54 03:08:39 Test Item Value Reference Range Interpretation Comments POC-Sodium (test code = 134 meq/L 135-148 L : TE STED AT [facility] 1542) [address] [facility], 770 30: Bucket Wash Operator/Techni dakota ID = [id number] for URCIA, FAMELA Lab Interpretation (test Abnormal code = 75420-1) [facility]-Blood gases, afxxxtee0211-65-64 03:08:39 Test Item Value Reference Range Interpretation [...] tomated message] code = 1838) The system [employer] generated this result transmit hernandez reference range : 80.0 - 90.0 mm Hg. The reference r colby was not used to interpret this result as normal/abnormal . SO2, Arterial-POC (test 91.0 % 96.0-97.0 L code = 1839) HCO3, Arterilal-POC 22.2 meq/L 21.0-29.0 (test code = 1840) BE, Arterial-POC (test -2.0 meq/L -2.0-3.0 : LIONEL HERNANDEZ AT [facility] code = 1841) [address] [facility] [place] [place], [address]: Bucket Wash Operator/Techni dakota ID = [id number] for URCIA, FAMELA Lab Interpretation Abnormal (test code = 49799-1) [facility]-Cgkldc8462-80-13 03:08:39 Test Item Value Reference Range Interpretation Comments POC-Sodium (test code = 134 meq/L 135-148 L : TE STED AT [facility] 1542) [address] [facility], 770 30: Bucket Wash Operator/Techni dakota ID = [id number] for URCIA, FAMELA Lab Interpretation (test Abnormal code = 40843-6) [facility] StanfordPOCT-BLOOD GASES, [id number] 03:08:39 Test Item Value Reference Range Interpretation [...] EXCESS, -2.0 meq/L -2.0-3.0 : TESTED AT [facility] 6720 ARTERIAL-POC [facility], (BEAKER) (test code 094[address]: = 1841) Bucket Wash Operator/Techni dakota ID = [id number] for URCI A, FAMELA PTDN-[id number] 03:08:39 Test Item Value Reference Range Interpretation Comments POC-SODIUM (BEAKER) 134 meq/L 135-148 L : TESTED AT [facility] 6720 (test code = 1542) [facility], [address]: Bucket Wash Operator/Techni dakota ID = [id number] for URCI A, FAMELA RAD, CHEST, 1 VIEW, NON [id number] 03:00:00Reason for exam:- >destaurationShould this be performed at the bedside?->Yes [facility] : 2000 Sex: MFINAL REPORT [...] MDReport Verified Date/Time: 09/07/2021 03:00:20 BASIC METABOLIC [id number] 01:49:40 Test Item Value Reference Range Interpretation [...] S NOT APPLICABLE FOR DIALYSIS PATIEN TS. Bucket Wash Operator ID - CCWWAURNYVOB9480-20-73 01:38:31 Test Item Value Reference Range Interpretation Comments PHOSPHORUS (BEAKER) (test code = 3.1 mg/dL 2.3-4.7 604) Bucket Wash Operator ID - MWASOETVALS4723-49-05 01:38:30 Test Item Value Reference Range Interpretation Comments MAGNESIUM (BEAKER) (test code = 1.9 mg/dL 1.6-2.6 627) Bucket Wash Operator ID - BSPOCT-GLUCOSE [id number] 00:10:21 Test Item Value Reference Range Interpretation Comments POC-GLUCOSE METER 128 mg/dL 70-110 H : TESTED A T [facility] 6720 (BECAMILO) (test code = [facility], 1538) [address]: Bucket Wash Operator/Techni dakota ID = [id number] for ABBIE PIERRE POCT-GLUCOSE [id number] 15:58:02 Test Item Value Reference Range Interpretation Comments POC-GLUCOSE METER 142 mg/dL 70-110 H : TESTED A T [facility] 6720 (GENEVA) (test code = [facility], 1538) [address]: Bucket Wash Operator/Techni dakota ID = [id number] for Laura Ch POCT-GLUCOSE [id number] 13:04:07 Test Item Value Reference Range Interpretation Comments POC-GLUCOSE METER 141 mg/dL 70-110 H : TESTED A T [facility] 6720 (GENEVA) (test code = [facility], 1538) [address]: Bucket Wash Operator/Techni dakota ID = [id number] for Laura Ch TSH/FREE T4 IF [id number] 11:33:39 Test Item Value Reference Range Interpretation Comments THYROID STIMULATING HORMONE 4.429 uIU/mL 0.350-4.940 (BEAKER) (test code = 772) Bucket Wash Operator ID - PIAYASARS-COV2/RT-PCR ([facility])2021-09-06 10:50:02 Test Item Value Reference Range Interpretation Comments SARS-COV2/RT-PCR (test Negative Not Detected, Negative, code = 6590202) See external report for linked test SARS-COV-2 PERFORMING LAB [facility] (test code = 9094488) Negative result for this test determines that [...] of the Act.Fact Sheet for Healthcare Prov iders:[email or web address]_Sheet_HC _Wadxjzrru_Njsd_CDCZ-JjL-1.pdfFact Sheet for Healthcare Patients:https://www.[employer].com/sites/default/files/product/docume nts/Dtub_Kfvax_Tidxxsrd_Eulx_LOYT-KoL-1.pdfPerforming Laboratory:[facility].[place], [place] [address]GFRLHMB D, 25-HYDROXY 2021-09-06 07:57:12 Test Item Value Reference Range Interpretation Comments VITAMIN D 25-OH (GENEVA) (test 15.4 ng/mL 6.6-49.9 code = 2764) Effective 02/27/2017: Reference Range ChangeNew: 6.6-49.9 ng/mL Previous: 13.0- 47.8 ng/mLRecommendedVitamin D Target Range: 30.0-40.0 ng/mLOperator ID - BS POCT-GLUCOSE [id number] 07:40:30 Test Item Value Reference Range Interpretation Comments POC-GLUCOSE METER 157 mg/dL 70-110 H : TESTED A T [facility] 6720 (BEAKER) (test code = [place], 1538) [address]: Bucket Wash Operator/Techni dakota ID = [id number] for Laura Ch COMPLEMENT COMPONENT [id number] 07:37:31 Test Item Value Reference Range Interpretation Comments C3 COMPLEMENT (BEAKER) (test code = 25 mg/dL 82-193 L 393) Bucket Wash Operator ID - BSCOMPLEMENT COMPONENT [id number] 07:37:30 Test Item Value Reference Range Interpretation Comments C4 COMPLEMENT (BEAKER) (test code = 4 mg/dL 15-57 L 394) Bucket Wash Operator ID - BSPROTEIN, RANDOM [id number] 07:28:02 Test Item Value Reference Range Interpretation Comments PROTEIN, URINE (BEAKER) (test code 411 mg/dL 0-14 H = 1569) Bucket Wash Operator ID - BS(CELLAVISION MANUAL DIFF)2021-09-06 07:15:58 Test [...] CONCENTRATION Decreased (CELLAVISION)(BEAKER) (test code = 3438) Bucket Wash Operator ID - [id number] ID - joanna Fuentes comments: Slide comments:CBC W/PLT COUNT & AUTO [id number] 07:15:57 Test Item Value Reference Range Interpretation [...] (BEAKER) (test code = 413) CREATININE, RANDOM [id number] 06:26:45 Test Item Value Reference Range Interpretation Comments CREATININE URINE (BEAKER) (test 200.4 mg/dL code = 375) Reference Range: No NormalsOperator ID - BSURINALYSIS W/ [id number] 06:06:22 Test Item Value Reference Range Interpretation [...] = 1584) SOURCE(BEAKER) (test code = 2795) Bucket Wash Operator ID - [auto]Bucket Wash Operator ID - techOperator ID - techCOMPREHENSIVE METABOLIC [id number] 02:54:37 Test Item Value Reference Range Interpretation [...] S NOT APPLICABLE FOR DIALYSIS PATIEN TS. Bucket Wash Operator ID - BSLACTIC ACID, [id number] 02:42:48 Test Item Value Reference Range Interpretation Comments LACTATE BLOOD VENOUS (2) (BEAKER) 1.38 mmol/L 0.50-2.20 (test code = 2872) Bucket Wash Operator ID - [id number] 02:36:26 Test Item Value Reference Range Interpretation Comments MAGNESIUM (GENEVA) (test code = 1.6 mg/dL 1.6-2.6 627) Bucket Wash Operator ID - [id number] 02:36:26 Test Item Value Reference Range Interpretation Comments PHOSPHORUS (GENEVA) (test code = 2.4 mg/dL 2.3-4.7 604) Bucket Wash Operator ID - BSRAD, CHEST, 1 VIEW, NON [id number] 02:26:00Reason for exam:->sobCH[facility] : 2000 Sex: MFINAL REPORT [...] Vernell Ndiaye Verified Date/Time: 09/06/2021 02:26:55 POCT-GLUCOSE [id number] 01:16:19 Test Item Value Reference Range Interpretation Comments POC-GLUCOSE METER 164 mg/dL 70-110 H : TESTED A T [facility] 6720 (GENEVA) (test code = [place], 1538) [address]: Bucket Wash Operator/Techni dakota ID = [id number] for GR AHAM, WENDY BASIC METABOLIC [id number] 19:41:58 Test Item Value Reference Range Interpretation [...] S NOT APPLICABLE FOR DIALYSIS PATIEN TS. Bucket Wash Operator ID - [id number] 19:38:29 Test Item Value Reference Range Interpretation Comments MAGNESIUM (BEAKER) (test code = 1.7 mg/dL 1.6-2.6 627) Bucket Wash Operator ID - [id number] 19:38:29 Test Item Value Reference Range Interpretation Comments PHOSPHORUS (BEAKER) (test code = 2.0 mg/dL 2.3-4.7 L 604) Bucket Wash Operator ID - BSPOCT-GLUCOSE [id number] 19:12:09 Test Item Value Reference Range Interpretation Comments POC-GLUCOSE METER 184 mg/dL 70-110 H : TESTED A T [facility] 6720 (BEAKER) (test code = [place], 1538) [address]: Bucket Wash Operator/Techni dakota ID = [id number] for CHANTE GIL [id number] 17:52:47 Test Item Value Reference Range Interpretation Comments FERRITIN (BEAKER) (test code = 4212.17 ng/mL 5.00-275.00 H 361) Bucket Wash Operator ID - BSOperator ID - BSCT, [id number] 12:57:00Unlisted Reason for Exam - Click Yes and Enter Reason Below->YesUnlisted Reason for Exam->pancreatitis folllow-upIs this for enterography?->NoWill this procedure require oral contrast?->No [facility] : 2000 Sex: MFINAL REPORT [...] changes of the lefthip. Signed: Yash Lux MDRepresearch psychiatric center Verified Date/Time: 09/05/2021 12:57:43 Reading Location: [facility] Reading Room - [place] [address] POCT-GLUCOSE [id number] 12:23:38 Test Item Value Reference Range Interpretation Comments POC-GLUCOSE METER 181 mg/dL 70-110 H : TESTED A T [facility] 6720 (BEAKER) (test code = [facility]8) [address]: Bucket Wash Operator/Techni dakota ID = [id number] for CHANTE GIL POCT-GLUCOSE [id number] 06:55:24 Test Item Value Reference Range Interpretation Comments POC-GLUCOSE METER 197 mg/dL 70-110 H : TESTED A T [facility] 6720 (BEAKER) (test code = [facility], 1538) [address]: Bucket Wash Operator/Techni dakota ID = [id number] for ON UOHA, ALLAN COMPREHENSIVE METABOLIC [id number] 06:16:59 Test Item Value Reference Range Interpretation [...] S NOT APPLICABLE FOR DIALYSIS PATIEN TS. Bucket Wash Operator ID - SHREE WCALCIUM, [id number] 05:57:49 Test Item Value Reference Range Interpretation [...] WBC 0-0 (BEAKER) (test code = 413) [id number] 01:18:24 Test Item Value Reference Range Interpretation Comments PHOSPHORUS (BEAKER) (test code = 1.2 mg/dL 2.3-4.7 LL 604) Bucket Wash Operator ID - BSBASIC METABOLIC [id number] 01:17:10 Test Item Value Reference Range Interpretation [...] S NOT APPLICABLE FOR DIALYSIS PATIEN TS. Bucket Wash Operator ID - [id number] 01:10:55 Test Item Value Reference Range Interpretation Comments MAGNESIUM (BEAKER) (test code = 2.3 mg/dL 1.6-2.6 627) Bucket Wash Operator ID - BSPOCT-GLUCOSE [id number] 00:50:48 Test Item Value Reference Range Interpretation Comments POC-GLUCOSE METER 194 mg/dL 70-110 H : TESTED Daphne Miller [facility] 6720 (GENEVA) (test code = [place], 1538) [address]: Bucket Wash Operator/Techni dakota ID = [id number] for ON UOHA, ALLAN CT, CHEST WITH IV CONTRAST- PE TEST [id number] 21:21:00Unlisted Reason for Exam - Click Yes and Enter Reason Below->No [facility] : 2000 Sex: MFINAL [...] Vernell Ndiaye Verified Date/Time: 09/04/2021 21:21:16 POCT-GLUCOSE [id number] 18:23:42 Test Item Value Reference Range Interpretation Comments POC-GLUCOSE METER 248 mg/dL 70-110 H : TESTED A T [facility] 6720 (BEAKER) (test code = [facility] Ishaan [facility], 1538) [address]: Bucket Wash Operator/Techni dakota ID = [id number] for Bree Roman [id number] 14:56:22 Test Item Value Reference Range Interpretation Comments CALCIUM (BEAKER) (test code = 697) 5.8 mg/dL 8.4-10.2 LL Bucket Wash Operator ID - ADMINPOCT-GLUCOSE [id number] 13:17:18 Test Item Value Reference Range Interpretation Comments POC-GLUCOSE METER 217 mg/dL 70-110 H : TESTED A T [facility] 6720 (BEAKER) (test code = [place], 1538) [address]: Bucket Wash Operator/Techni dakota ID = [id number] for Liana Flores CBC W/PLT COUNT & AUTO [id number] 07:22:59 Test Item Value Reference Range Interpretation [...] PERCENT (BEAKER) (test code = 2801) POCT-GLUCOSE [id number] 06:16:20 Test Item Value Reference Range Interpretation Comments POC-GLUCOSE METER 261 mg/dL 70-110 H : TESTED A T [facility] 6720 (BEAKER) (test code = [place], 1538) [address]: Bucket Wash Operator/Techni dakota ID = [id number] for KENDALL JOYA COMPREHENSIVE METABOLIC [id number] 05:49:22 Test Item Value Reference Range Interpretation [...] S NOT APPLICABLE FOR DIALYSIS PATIEN TS. Bucket Wash Operator ID - [id number] 05:33:14 Test Item Value Reference Range Interpretation Comments MAGNESIUM (BEAKER) (test code = 1.8 mg/dL 1.6-2.6 627) Bucket Wash Operator ID - ADMINURINALYSIS W/ REFLEX URINE [id number] 01:34:44 Test Item Value Reference Range Interpretation [...] 1585) Rare SOURCE(BEAKER) (test code = 2795) Bucket Wash Operator ID - [auto]Bucket Wash Operator ID - techPOCT-GLUCOSE [id number] 00:34:17 Test Item Value Reference Range Interpretation Comments POC-GLUCOSE METER 261 mg/dL 70-110 H : TESTED A T [facility] 6720 (BEAKER) (test code = [facility], 1538) [address]: Bucket Wash Operator/Techni dakota ID = [id number] for KENDALL JOYA [id number] 18:57:34 Test Item Value Reference Range Interpretation Comments MAGNESIUM (BEAKER) (test code = 1.3 mg/dL 1.6-2.6 L 627) Bucket Wash Operator ID - ADMINPOCT-GLUCOSE [id number] 18:04:02 Test Item Value Reference Range Interpretation Comments POC-GLUCOSE METER 307 mg/dL 70-110 H : TESTED A T [facility] 6720 (BEAKER) (test code = [facility], 1538) [address]: Bucket Wash Operator/Techni dakota ID = [id number] for Liana Flores RAD, ABDOMEN/KUB, 1 VIEW [id number] 18:01:00Reason for exam:->Enteric tube placement verification [facility] : 2000 Sex: MFINAL [...] MDReport Verified Date/Time: 09/03/2021 18:01:34 COMPREHENSIVE METABOLIC [id number] 17:50:55 Test Item Value Reference Range Interpretation [...] S NOT APPLICABLE FOR DIALYSIS PATIEN TS. Bucket Wash Operator ID - 6000Operator ID - 6000Operator ID - ADMINCBC W/PLT COUNT & AUTO [id number] 17:43:10 Test Item Value Reference Range Interpretation [...] code = 2801) RAD, ABDOMEN/KUB, 1 VIEW [id number] 17:14:00Reason for exam:->confirm NGT placementST. [facility] : 2000 Sex: MFINAL [...] 09/03/2021 17:14:35 , CHEST, 1 VIEW, NON [id number] 16:50:00Reason for exam:->ngt placementShould this be performed at the bedside?->Yes [facility] : 2000 Sex: MFINAL REPORT INDICATION: ngt placement COMPARISON: None TECHNIQUE: Single frontal viewof the chest. FINDINGS: Lungs and pleura: Trace right effusion and basilar atelectasisHeart and mediastinum: Normal heart size. Unremarkable mediastinal contours.Osseous structures: No acute abnormality .Other: Feeding tube descends below the diaphragm. Signed: Anne Marie Correaeport Verified Date/Time: 09/03/2021 16:50:54 [id number] 10:58:42 Test Item Value Reference Range Interpretation Comments PHOSPHORUS (BEAKER) 1.6 mg/dL 2.3-4.7 L Specimen slightly (test code = 604) hemolyzed Bucket Wash Operator ID - BISI GCOMPREHENSIVE METABOLIC [id number] 06:03:24 Test Item Value Reference Range Interpretation [...] S NOT APPLICABLE FOR DIALYSIS PATIEN TS. Bucket Wash Operator ID - BISI GPOCT-GLUCOSE [id number] 22:25:14 Test Item Value Reference Range Interpretation Comments POC-GLUCOSE METER 312 mg/dL 70-110 H : TESTED A T [facility] 67 ([facility]) (test code = DONNA Ishaan [facility], 1538) [address]: Bucket Wash Operator/Techni dakota ID = [id number] for FABRIZIO JOYCE POCT-GLUCOSE [id number] 19:00:17 Test Item Value Reference Range Interpretation Comments POC-GLUCOSE METER 339 mg/dL 70-110 H : Notified RN/MD: ([facility]) (test code = TESTED AT [facility] 6720 1538) [facility], [address]: Bucket Wash Operator/Techni dakota ID = [id number] for Rudy mccord (contract)Cleary PROTEIN, RANDOM [id number] 08:28:13 Test Item Value Reference Range Interpretation Comments PROTEIN, URINE (BEAKER) (test code 243 mg/dL 0-14 H = 1569) Bucket Wash Operator ID - BSOperator ID - BSCREATININE, RANDOM [id number] 07:21:31 Test Item Value Reference Range Interpretation Comments CREATININE URINE (BEAKER) (test 122.9 mg/dL code = 375) Reference Range: No NormalsOperator ID - BSRAD, CHEST, 1 VIEW, NON DEPT 2021-09-02 01:55:00Reason for exam:->chest painShould this be performed at the bedside?->Yes [facility] : 2000 Sex: MFINALREPORT History: chest pain. Comparison: None. Findings: A single view of the chest is submitted. The cardiomediastinal contours are unremarkable. There is no focal consolidation, pneumothorax, large pleural effusion or evidence of overt pulmonary edema. There is no acute bony abnormality. Impression: No acute abnormality. Signed: Miles Alicia [facility] Verified Date/Time: 09/02/2021 01:55:59 -GLUCOSE [id number] 23:28:42 Test Item Value Reference Range Interpretation Comments POC-GLUCOSE METER 277 mg/dL 70-110 H : [facility] [address] ([address]) (test code = [place] [facility], 1538) [address]: Bucket Wash Operator/Techni dakota ID = [id number] for RODRIGUES PAULINA POCT-GLUCOSE [id number] 18:19:51 Test Item Value Reference Range Interpretation Comments POC-GLUCOSE METER 263 mg/dL 70-110 H : TESTED A T [facility] 6720 (BEAKER) (test code = DONNA [place] [facility], 1538) [address]: Bucket Wash Operator/Techni dakota ID = [id number] for Rubén jordanmarlene Laura HIGH SENSITIVITY TROPONIN [id number] 17:04:34 Test Item Value Reference Range Interpretation Comments HIGH SENSITIVITY < pg/ml See_Comment [Automated message] TROPONIN I (test code = The system which 8883425) generated this result transmitted ref erence range: <=35. Th e reference range was not used to interpr et this result as normal/abnormal . Bucket Wash Operator ID - BSThe PANEL SAW OPERATOR STAT High Sensitivity Troponin-I results should be used in conjunctionwith other diagnostic information such as ECG, clinical observations and information, and patient symptoms to aid in the diagnosis of CO.(CELLAVISION MANUAL DIFF)2021-09-01 10:37:19 Test Item Value Reference [...] CONCENTRATION Decreased (CELLAVISION)(BEAKER) (test code = 3438) Bucket Wash Operator ID - [id number] ID - joanna Fuentes comments: Slide comments:CBC W/PLT COUNT & AUTO [id number] 10:37:18 Test Item Value Reference Range Interpretation [...] (BEAKER) (test code = 413) COMPREHENSIVE METABOLIC [id number] 07:28:31 Test Item Value Reference Range Interpretation [...] S NOT APPLICABLE FOR DIALYSIS PATIEN TS. Bucket Wash Operator ID - BSIMMUNOGLOBULIN A (IGA)2021-09-01 07:27:15 Test Item Value Reference Range Interpretation Comments IMMUNOGLOBULIN A (IGA) (BEAKER) 235 mg/dL 63-484 (test code = 639) Bucket Wash Operator ID - BSPT/[id number] 07:11:49 Test Item Value Reference Range Interpretation [...] 2.5-3.5 for patients with mechanical heart valves.PROTHROMBIN TIME/[id number] 07:11:14 Test Item Value Reference Range Interpretation Comments PROTIME (BEAKER) 13.5 seconds 11.9-14.2 (test code = 759) INR (BEAKER) (test 1.04 See_Comment [Automat ed message] code = 370) The system [employer] h generated this result transmitted ref erence range: <=5.90. The reference range was not used to int erpret this result as normal/abnormal . RECOMMENDED COUMADIN/WARFARIN INR THERAPY RANGESSTANDARD DOSE: 2.0 - 3.0 Includes: PROPHYLAXIS for venous thrombosis, systemic embolization; TREATMENT for venous thrombosis and/or pulmonary embolus.HIGH RISK: Target INR is 2.5-3.5 for patients with mechanical heart valves.POCT-GLUCOSE [id number] 22:01:13 Test Item Value Reference Range Interpretation Comments POC-GLUCOSE METER 219 mg/dL 70-110 H : TESTED A T [facility] [address] ([address]) (test code = [facility], 1538) [address]: Bucket Wash Operator/Techni dakota ID = [id number] for FABRIZIO JOYCE POCT-GLUCOSE [id number] 17:24:51 Test Item Value Reference Range Interpretation Comments POC-GLUCOSE METER 177 mg/dL 70-110 H : TESTED A T [facility] 6720 (ArtspaceAKER) (test code = [facility], 1538) [address]: Bucket Wash Operator/Techni dakota ID = [id number] for Rubén jordanmarlene Laura [id number] 14:29:25 Test Item Value Reference Range Interpretation Comments RPR SCREEN (BEAKER) (test code = Nonreactive Nonreactive 420) RHEUMATOID FACTOR [id number] 14:27:52 Test Item Value Reference Range Interpretation Comments RHEUMATOID FACTOR TITER (BEAKER) (test :8 Negative code = 2285) RHEUMATOID FACTOR AB, REFLEX TO [id number] 14:26:49 Test Item Value Reference Range Interpretation Comments RHEUMATOID FACTOR (BEAKER) (test Positive Negative code = 573) POCT-GLUCOSE [id number] 13:43:32 Test Item Value Reference Range Interpretation Comments POC-GLUCOSE METER 163 mg/dL 70-110 H : TESTED A T [facility] 6720 (BEAKER) (test code = [facility], 1538) [address]: Bucket Wash Operator/Techni dakota ID = [id number] for Laura Ch RETICULOCYTE [id number] 09:04:11 Test Item Value Reference Range Interpretation Comments RETICULOCYTE COUNT PCT (BEAKER) (test 0.4 % 0.5-1.8 L code = 575) Bucket Wash Operator ID - 6000POCT-GLUCOSE [id number] 08:53:33 Test Item Value Reference Range Interpretation Comments POC-GLUCOSE METER 117 mg/dL 70-110 H : TESTED A T [facility] 6720 (BEAKER) (test code = [facility], 1538) [address]: Bucket Wash Operator/Techni dakota ID = [id number] for José Miguel Elliott [id number] 08:02:13 Test Item Value Reference Range Interpretation Comments FERRITIN (BEAKER) (test code = 19963.20 ng/mL 5.00-275.00 H 361) Bucket Wash Operator ID - ADMINOperator ID - ADMINCOMPLEMENT COMPONENT [id number] 06:48:01 Test Item Value Reference Range Interpretation Comments C4 COMPLEMENT (BEAKER) (test code = < mg/dL 15-57 L 394) Bucket Wash Operator ID - BSHIV-1 ANTIGEN WITH HIV-1/2 [id number] 06:38:19 Test Item Value Reference Range Interpretation Comments HIV-1 ANTIGEN WITH HIV 1\\T\\2 Nonreactive Nonreactive ANTIBODY (2) (BEAKER) (test code = 2586) Bucket Wash Operator ID - BSCOMPLEMENT COMPONENT [id number] 06:32:35 Test Item Value Reference Range Interpretation Comments C3 COMPLEMENT (BEAKER) (test code = 13 mg/dL 82-193 L 393) Bucket Wash Operator ID - BSCOMPREHENSIVE METABOLIC [id number] 06:30:18 Test Item Value Reference Range Interpretation [...] S NOT APPLICABLE FOR DIALYSIS PATIEN TS. Bucket Wash Operator ID - [id number] 06:30:18 Test Item Value Reference Range Interpretation Comments MAGNESIUM (BEAKER) (test code = 1.5 mg/dL 1.6-2.6 L 627) Bucket Wash Operator ID - BSPT/[id number] 06:13:21 Test Item Value Reference Range Interpretation [...] 2.5-3.5 for patients with mechanical heart valves.PROTHROMBIN TIME/[id number] 06:12:36 Test Item Value Reference Range Interpretation Comments PROTIME (BEAKER) 13.8 seconds 11.9-14.2 (test code = 759) INR (BEAKER) (test 1.08 See_Comment [Automat ed message] code = 370) The system [employer] h generated this result transmitted ref erence [...] WBC 0-0 (test code = 413) BLOOD [id number] 05:00:52 Test Item Value Reference Range Interpretation Comments CULTURE (BEAKER) (test No growth in 5 days code = 1095) BLOOD [id number] 03:00:57 Test Item Value Reference Range Interpretation Comments CULTURE (BEAKER) (test No growth in 5 days code = 1095) The specimen volume collected for this blood culture was below the optimum (10 mL per bottle or 20 mL total). Use of lower volumes may adversely affect recovery and/or detection times of some organisms.POCT-GLUCOSE [id number] 21:20:13 Test Item Value Reference Range Interpretation Comments POC-GLUCOSE METER 132 mg/dL 70-110 H : TESTED A T [facility] 6720 (BEAKER) (test code = [facility], 1538) [address]: Bucket Wash Operator/Techni dakota ID = [id number] for AXEL COLUNGA POCT-GLUCOSE [id number] 17:39:12 Test Item Value Reference Range Interpretation Comments POC-GLUCOSE METER 137 mg/dL 70-110 H : TESTED A T [facility] 6720 (BEAKER) (test code = [facility], 1538) [address]: Bucket Wash Operator/Techni dakota ID = [id number] for Nury Link PERIPHERAL BLOOD SMEAR - PATHOLOGIST [id number] 16:27:42 Test Item Value Reference Range Interpretation Comments PERIPHERAL SMR REVIEW Microcytic hypochromic (BEAKER) (test code = anemia with mild 2640) anisopoikilocytosis. Leukopenia with neutropenia and left shifted granulocytic elements. Rare atypical lymphocytes. Decreased platelets; no significant platelet clumping/satellitism identified. [id number] Brea Morales (BEAKER) (test code = Xavier Gallegos 0509) POCT-GLUCOSE [id number] 12:50:21 Test Item Value Reference Range Interpretation Comments POC-GLUCOSE METER 148 mg/dL 70-110 H : TESTED A T [facility] 6720 (BEAKER) (test code = [place], 1538) [address]: Bucket Wash Operator/Techni dakota ID = [id number] for Nury Link MISCELLANEOUS LAB [id number] 12:30:57 Test Item Value Reference Range Interpretation Comments SCAN RESULT (test code = see scanned results [id number]) see scanned [id number] 11:53:39 Test Item Value Reference Range Interpretation Comments LIPASE (BEAKER) (test code = 749) 969 U/L 8-78 H Bucket Wash Operator ID - BSANA TITER AND [id number] 10:59:38 Test Item Value Reference Range Interpretation [...] 1+ few (test code = 768) POCT-GLUCOSE [id number] 08:23:03 Test Item Value Reference Range Interpretation Comments POC-GLUCOSE METER 97 mg/dL 70-110 : TESTED A T [facility] 6720 (BEAKER) (test code = [place], 1538) [address]: Bucket Wash Operator/Techni dakota ID = [id number] for Nury Uriostegui [id number] 04:36:10 Test Item Value Reference Range Interpretation Comments MAGNESIUM (BEAKER) (test code = 1.5 mg/dL 1.6-2.6 L 627) Bucket Wash Operator ID - BSC-REACTIVE [id number] 04:36:10 Test Item Value Reference Range Interpretation Comments C-REACTIVE PROTEIN (BEAKER) (test 0.77 mg/dL 0.00-0.50 H code = 676) Bucket Wash Operator ID - BSCOMPREHENSIVE METABOLIC [id number] 04:36:09 Test Item Value Reference Range Interpretation [...] S NOT APPLICABLE FOR DIALYSIS PATIEN TS. Bucket Wash Operator ID - BSPT/[id number] 04:12:17 Test Item Value Reference Range Interpretation [...] 2.5-3.5 for patients with mechanical heart valves.PROTHROMBIN TIME/[id number] 04:11:15 Test Item Value Reference Range Interpretation Comments PROTIME (BEAKER) 13.8 seconds 11.9-14.2 (test code = 759) INR (BEAKER) (test 1.08 See_Comment [Automat ed message] code = 370) The system [employer] generated this result transmitted ref erence range: [...] WBC 0-0 (test code = 413) POCT-GLUCOSE [id number] 21:48:31 Test Item Value Reference Range Interpretation Comments POC-GLUCOSE METER 136 mg/dL 70-110 H : TESTED A T [facility] 6720 (BEAKER) (test code = [place], 1538) [address]: Bucket Wash Operator/Techni dakota ID = [id number] for SA NDERS, AXEL SARS-COV2/RT-PCR ([facility])2021-08-29 20:38:24 Test Item Value Reference Range Interpretation Comments SARS-COV2/RT-PCR (test code = Negative Negative 1656781) Negative result for this test determines that [...] 564(g) of the Act.Testing was performed using [employer] SARS-CoV-2 assay.Fact Sheet for Healthcare Providers:https://www.[employer].Domobios/pedro/RT SARS-CoV-2 HCP Fact Sheet 51- 886771.pdfFact Sheet for Healthcare Patients:https://www.[employer]/pedro/RT SARS-CoV-2 Patient Fact Sheet EN 51-549198F4.pdfPOCT-GLUCOSE [id number] 17:55:13 Test Item Value Reference Range Interpretation Comments POC-GLUCOSE METER 109 mg/dL 70-110 : TESTED A T [facility] 6720 (BEAKER) (test code = [facility] Ishaan [facility], 1538) [address]: Bucket Wash Operator/Techni dakota ID = [id number] for Toy Lopez [id number] 14:07:15 Test Item Value Reference Range Interpretation Comments LIPASE (BEAKER) (test code = 749) > U/L 8-78 H Bucket Wash Operator ID - FATMATA [id number] 14:02:51 Test Item Value Reference Range Interpretation Comments FIBRINOGEN LEVEL (BEAKER) (test 189 mg/dl 225-434 L code = 658) [id number] 13:33:46 Test Item Value Reference Range Interpretation Comments PHOSPHORUS (BEAKER) 2.1 mg/dL 2.3-4.7 L Specimen slightly (test code = 604) hemolyzed Bucket Wash Operator ID - FATMATA WPOCT-GLUCOSE [id number] 11:56:19 Test Item Value Reference Range Interpretation Comments POC-GLUCOSE METER 109 mg/dL 70-110 : TESTED A T [facility] 6720 (BEAKER) (test code = [facility] [place] [facility], 1538) [address]: Bucket Wash Operator/Techni dakota ID = [id number] for Toy Lopez [id number] 10:37:25 Test Item Value Reference Range Interpretation Comments MAGNESIUM (BEAKER) 1.4 mg/dL 1.6-2.6 L Specimen slightly (test code = 627) hemolyzed Bucket Wash Operator ID - EULACOMPREHENSIVE METABOLIC [id number] 10:37:25 Test Item Value Reference Range Interpretation [...] S NOT APPLICABLE FOR DIALYSIS PATIEN TS. Bucket Wash Operator ID - BSPOCT-GLUCOSE [id number] 08:55:18 Test Item Value Reference Range Interpretation Comments POC-GLUCOSE METER 101 mg/dL 70-110 : TESTED A T [facility] 6720 (BEAKER) (test code = [place], 1538) [address]: Bucket Wash Operator/Techni dakota ID = [id number] for Love-Jean, Toy ia PROTHROMBIN TIME/[id number] 05:16:55 Test Item Value Reference Range Interpretation Comments PROTIME (BEAKER) 16.3 seconds 11.9-14.2 H (test code = 759) INR (BEAKER) (test 1.33 See_Comment [Automat ed message] code = 370) The system [employer] generated this result transmitted ref erence range: [...] WBC 0-0 (test code = 413) POCT-GLUCOSE [id number] 04:41:33 Test Item Value Reference Range Interpretation Comments POC-GLUCOSE METER 122 mg/dL 70-110 H : TESTED A T [facility] 6720 (BEAKER) (test code = [place] [facility], 1538) [address]: Bucket Wash Operator/Techni dakota ID = [id number] for Rachele Singh HEPATITIS B SURFACE [id number] 19:07:46 Test Item Value Reference Range Interpretation Comments HEPATITIS B SURFACE ANTIGEN (2) Nonreactive Nonreactive (BEAKER) (test code = 2585) Specimen is considered negative for HBsAg.HEPATITIS C [id number] 18:37:24 Test Item Value Reference Range Interpretation Comments HEPATITIS C ANTIBODY (BEAKER) Nonreactive Nonreactive (test code = 367) Bucket Wash Operator ID - BSHEPATITIS A ANTIBODY, [id number] 18:29:47 Test Item Value Reference Range Interpretation Comments HEPATITIS A IGG ANTIBODY (BEAKER) Reactive Nonreactive A (test code = 2797) Bucket Wash Operator ID - BSHEPATITIS B SURFACE [id number] 18:27:24 Test Item Value Reference Range Interpretation Comments HEPATITIS B SURFACE ANTIBODY 328.2 mIU/mL <8.0 H (BEAKER) (test code = 647) Bucket Wash Operator ID - BSHEPATITIS B CORE ANTIBODY, [id number] 18:27:24 Test Item Value Reference Range Interpretation Comments HEPATITIS B CORE TOTAL ANTIBODY Nonreactive Nonreactive (BEAKER) (test code = 497) Bucket Wash Operator ID - BSRapid drug screen, [id number] 18:17:41 Test Item Value Reference Range Interpretation Comments Barbiturate Screen Negative Negative (test code = 78058-1) Benzodiazepine Screen Negative Negative (test code = 72139-4) Cocaine (Metab.) Negative Negative Screen (test code = 3397-7) Methadone Screen (test Negative Negative code = 17956-8) Opiate Screen (test Negative Negative code = 16592-1) Cannabinoid Screen Negative Negative (test code = 39482-1) Amph/Methamph Screen Negative Negative (test code = 07532-8) Phencyclidine Screen Negative Negative (test code = 21072-9) pH, UA (test code = 7.5 5.0-8.0 5803-2) IDALIA (test code = IDALIA) DRUG CUTOFF CONC.Cocaine 300 ng/mL Cannabinoid 50 ng/mLBenzodiazepine 200 ng/mLBarbiturate 200 ng/mLPhencyclidine 25 ng/mLOpiate 300 ng/mLMethadone 300 ng/mLAmphetamine/ 1000 ng/mL Methamphetamine This assay provides an unconfirmed qualitative test result for the clinical management of patients in emergency situations. Chain of custody not maintained. Some suag-sxk-ocfxfxx medications, as well as adulterants, may cause inaccurate results. Clinical correlation should be applied. A more comprehensive drug screen or confirmation of a detected drug may be performed upon request.Bucket Wash Operator ID - BS Lab Interpretation Normal (test code = 84915-5) [facility], [id number] 18:17:41 Test Item Value Reference Range Interpretation Comments Barbiturate Screen Negative Negative (test code = 15000-4) Benzodiazepine Screen Negative Negative (test code = 13586-6) Cocaine (Metab.) Negative Negative Screen (test code = 3397-7) Methadone Screen (test Negative Negative code = 47902-7) Opiate Screen (test Negative Negative code = 98992-7) Cannabinoid Screen Negative Negative (test code = 45226-5) Amph/Methamph Screen Negative Negative (test code = 97509-3) Phencyclidine Screen Negative Negative (test code = 74688-4) pH, UA (test code = 7.5 5.0-8.0 5803-2) IDALIA (test code = IDALIA) DRUG CUTOFF CONC.Cocaine 300 ng/mL Cannabinoid 50 ng/mLBenzodiazepine 200 ng/mLBarbiturate 200 ng/mLPhencyclidine 25 ng/mLOpiate 300 ng/mLMethadone 300 ng/mLAmphetamine/ 1000 ng/mL Methamphetamine This assay provides an unconfirmed qualitative test result for the clinical management of patients in emergency situations. Chain of custody not maintained. Some otqe-tnq-whqdnip medications, as well as adulterants, may cause inaccurate results. Clinical correlation should be applied. A more comprehensive drug screen or confirmation of a detected drug may be performed upon request.Bucket Wash Operator ID - BS Lab Interpretation Normal (test code = 80100-0) [facility] Stanford[facility]apid [facility] screen, [id number] 18:17:41 Test Item Value Reference Range Interpretation Comments Barbiturate Screen Negative Negative (test code = 67387-0) Benzodiazepine Screen Negative Negative (test code = 07563-0) Cocaine (Metab.) Negative Negative Screen (test code = 3397-7) Methadone Screen (test Negative Negative code = 64319-0) Opiate Screen (test Negative Negative code = 19424-4) Cannabinoid Screen Negative Negative (test code = 36122-9) Amph/Methamph Screen Negative Negative (test code = 55987-9) Phencyclidine Screen Negative Negative (test code = 75997-0) pH, UA (test code = 7.5 5.0-8.0 5803-2) IDALIA (test code = IDALIA) DRUG CUTOFF CONC.Cocaine 300 ng/mL Cannabinoid 50 ng/mLBenzodiazepine 200 ng/mLBarbiturate 200 ng/mLPhencyclidine 25 ng/mLOpiate 300 ng/mLMethadone 300 ng/mLAmphetamine/ 1000 ng/mL Methamphetamine This assay provides an unconfirmed qualitative test result for the clinical management of patients in emergency situations. Chain of custody not maintained. Some vree-mhy-hqfbzll medications, as well as adulterants, may cause inaccurate results. Clinical correlation should be applied. A more comprehensive drug screen or confirmation of a detected drug may be performed upon request.Bucket Wash Operator ID - BS Lab Interpretation Normal (test code = 97276-2) [facility]ID DR[facility] SCREEN, [id number] 18:17:41 Test Item Value Reference Range Interpretation [...] ng/mLOpiate 300 ng/mLMethadone 300 ng/mLAmphetamine/ 1000 ng/mL MethamphetamineThisassay provides an unconfirmed qualitative test result for the clinical management of patients in emergency situations. Chain of custody not maintained. Some oodc-jkz-leapuln medications, as well as adulterants, may cause inaccurate results. Clinical correlation should be applied. A more comprehensive drug screen or confirmation of a detected drug may be performed upon request.Bucket Wash Operator ID - BSIMMUNOGLOBULIN G (IGG)2021-08-28 18:13:19 Test Item Value Reference Range Interpretation Comments IMMUNOGLOBULIN G (IGG) 1400 mg/dL See_Comment [Aut omated message] (GENEVA) (test code = The sy stem which 427) generated this result transmit hernandez reference range : 540-1,822. The reference range was not used to interpret this result as normal/abnormal . Bucket Wash Operator ID - BSIRON, TIBC, % SAT. (WITHOUT FERRITIN)2021-08-28 18:13:19 Test Item Value Reference Range Interpretation Comments IRON (LEOAKER) (test code = 547) 139.0 ug/dL 40.0-160.0 TOTAL IRON BINDING CAPACITY 178 ug/dL 250-450 L (AKER) (test code = 769) IRON % SATURATION (2) (AKER) 78 % 20-55 H (test code = 2590) Bucket Wash Operator ID - [id number] 16:36:26 Test Item Value Reference Range Interpretation Comments FERRITIN (AKER) (test code = 30591.56 ng/mL 5.00-275.00 H 361) Bucket Wash Operator ID - BSOperator ID - [id number]-[id number] 14:45:11 Test Item Value Reference Range Interpretation Comments ALPHA-1 ANTITRYPSIN 130.90 mg/dL 90.00-200.00 Specimen slightly ([facility]) (test code = hemoly zed 502) Bucket Wash Operator ID - DBPOCT-GLUCOSE [id number] 14:23:23 Test Item Value Reference Range Interpretation Comments POC-GLUCOSE METER 97 mg/dL 70-110 : TESTED A T [facility] 6720 ([address]) (test code = [facility], 1538) [address]: Bucket Wash Operator/Techni dakota ID = [id number] for Sunitha rodriguez José Miguel POCT-GLUCOSE [id number] 08:20:47 Test Item Value Reference Range Interpretation Comments POC-GLUCOSE METER 85 mg/dL 70-110 : TESTED A T [facility] [address] ([address]) (test code = [facility], 1538) [address]: Bucket Wash Operator/Techni dakota ID = [id number] for José Miguel Larkin COMPREHENSIVE METABOLIC [id number] 06:21:17 Test Item Value Reference Range Interpretation [...] S NOT APPLICABLE FOR DIALYSIS PATIEN TS. Bucket Wash Operator ID - [id number] 06:03:12 Test Item Value Reference Range Interpretation Comments MAGNESIUM (BEAKER) (test code = 1.8 mg/dL 1.6-2.6 627) Bucket Wash Operator ID - DBCBC (HEMOGRAM ONLY)2021-08-28 05:04:44 Test [...] WBC 0-0 (test code = 413) POCT-GLUCOSE [id number] 22:30:31 Test Item Value Reference Range Interpretation Comments POC-GLUCOSE METER 99 mg/dL 70-110 : Notified RN/MD: TESTED (BEAKER) (test code = AT [facility] 67[address] [facility] 1538) [facility], 770 30: Bucket Wash Operator/Techni dakota ID = [id number] for Peg Andersjo-ann MR, ABDOMEN, [id number] 18:44:00Unlisted Reason for Exam - Click Yes and Enter Reason Below->No [facility] : 2000 Sex: MFINAL REPORT [...] MDReport Verified Date/Time: 08/27/2021 18:44:20 Reading Location: [facility] C013Y CT Body Reading Room MR, ABDOMEN, [id number] 18:44:00Pancreas protocol Unlisted Reason for Exam - Click Yes and Enter Reason Below->No Does the patient have an implanted electronic device?->No [facility] : 2000 Sex: MFINAL [...] MDReport Verified Date/Time: 08/27/2021 18:44:20 Reading Location: [address] Body Reading Room COMPREHENSIVE METABOLIC [id number] 06:35:42 Test Item Value Reference Range Interpretation [...] S NOT APPLICABLE FOR DIALYSIS PATIEN TS. Bucket Wash Operator ID - PIAYA [id number] 06:34:17 Test Item Value Reference Range Interpretation Comments MAGNESIUM (BEAKER) (test code = 2.1 mg/dL 1.6-2.6 627) Bucket Wash Operator ID - PIJOVI LCBC (HEMOGRAM ONLY)2021-08-27 06:06:14 [...] WBC 0-0 (BEAKER) (test code = 413) [id number] 12:41:39 Test Item Value Reference Range Interpretation Comments LIPASE (BEAKER) (test code = 749) 1190 U/L 8-78 H Bucket Wash Operator ID - ALVINA MURINALYSIS W/ REFLEX URINE [id number] 07:27:57 Test Item Value Reference Range Interpretation [...] = 1521) SOURCE(BEAKER) (test code = 2795) Bucket Wash Operator ID - [auto]Bucket Wash Operator ID - tech(CELLAVISION MANUAL DIFF)2021-08-26 03:09:42 Test [...] K/uL 0.00-0.00 H (CELLAVISION)(BEAKER) (test code = 9498) TOTAL COUNTED (BEAKER) (test code 100 = [...] CONCENTRATION Decreased (CELLAVISION)(BEAKER) (test code = 3438) Bucket Wash Operator ID - [id number] ID - LaniUser comments: Slide comments:CBC W/PLT COUNT & AUTO [id number] 03:09:41 Test Item Value Reference Range Interpretation [...] (BEAKER) (test code = 413) COMPREHENSIVE METABOLIC [id number] 02:27:26 Test Item Value Reference Range Interpretation [...] S NOT APPLICABLE FOR DIALYSIS PATIEN TS. Bucket Wash Operator ID - ALVINA [id number] 02:26:17 Test Item Value Reference Range Interpretation Comments TRIGLYCERIDES (BEAKER) (test code = 175 mg/dL 540) TRIGLYCERIDE REFERENCE RANGELow Risk <150Borderline Risk 150-199High Risk 200-499Very High Risk >=500Operator ID - ALVINA [id number] 02:26:16 Test Item Value Reference Range Interpretation Comments MAGNESIUM (BEAKER) (test code = 2.2 mg/dL 1.6-2.6 627) Bucket Wash Operator ID - ALVINA MPROTHROMBIN [id number] 02:13:14 Test Item Value Reference Range Interpretation Comments PROTIME (BEAKER) 26.7 seconds 11.9-14.2 H (test code = 759) INR (BEAKER) (test 2.49 See_Comment [Automat ed message] code = 370) The system [employer] generated this result transmitted ref erence range: <=5.90. The reference range was not used to int erpret this result as normal/abnormal . RECOMMENDED COUMADIN/WARFARIN INR THERAPY RANGESSTANDARD DOSE: 2.0 - 3.0 Includes: PROPHYLAXIS for venous thrombosis, systemic embolization; TREATMENT for venous thrombosis and/or pulmonary embolus.HIGH RISK: Target INR is 2.5-3.5 for patients with mechanical heart valves.
[2022-03-15 20:26] LABS: Absolute Lymphocytes (CBC) 1.2 K/uL (0.7-4.9); Hematocrit 39.5 % (39.6-49.0); Lymphocytes % 14.5 % (15.3-44.8); MCV 76.5 fL (80-100); MPV 8.1 fL (7.6-11.3); RBC Red Blood Cell Count 5.16 M/uL (4.33-5.43)
[2022-03-15 20:34] LABS: SARS-CoV-2 Antigen Rapid Res Negative (Negative)
[2022-03-15 20:47] LABS: Albumin 3.2 g/dL (3.4-5.0); Bilirubin Total 0.5 mg/dL (0.2-1.0); Potassium 3.4 mmol/L (3.5-5.1); Protein, Total 7.8 g/dL (6.4-8.2)
--- NOTE | 2022-03-15 21:30 | RAD REPORT ---
EXAM DESCRIPTION: CT - Head Brain Wo Cont - 03/15/2022 9:18 pm CLINICAL HISTORY: syncope, head injury Syncope, trauma, head injury COMPARISON: Head Brain Wo Cont dated 01/24/2022; Head Brain Wo Cont dated 08/10/2021; Abdomen Pelvis W Contrast dated 03/15/2022 TECHNIQUE: All CT scans are performed using dose optimization technique as appropriate and may inclu de automated exposure control or mA/KV adjustment according to patient size. FINDINGS: No intracranial hemorrhage, hydrocephalus or extra-axial fluid collection.No areas of brai n edema or evidence of midline shift. The paranasal sinuses and mastoids are clear. The calvarium is intact. IMPRESSION: No acute intracranial abnormality.
--- NOTE | 2022-03-15 21:34 | RAD REPORT ---
EXAM DESCRIPTION: CTAbdomen Pelvis W Contrast - 03/15/2022 9:18 pm CLINICAL HISTORY: Abdominal pain. worsening abd pain, hx of nec pancreatitis COMPARISON: Abdomen Pelvis W Contrast dated 03/13/2022; Abdomen Pelvis W Contrast dated 2; Abdomen Pelvis W Contrast dated 01/24/2022; Abdomen Pelvis W Contrast dated 12/06/2021 TECHNIQUE: Biphasic CT imaging of the abdomen and pelvis was performed with 100 ml non-ionic IV cont rast. All CT scans are performed using dose optimization technique as appropriate and may include automated exposure control or mA/KV adjustment according to patient size. FINDINGS: The lung bases are clear. Cholelithiasis. Diffuse fatty liver is seen. There is an edematous appearance to the tail of the pancreas suggesting pancreatitis. Mild gas and fluid is seen extending into the left upper quadrant. This numerous spleni c granulomas. Both adrenal glands kidneys are within normal limits. No bowel obstruction, free air, free fluid or abscess. Nonvisualized appendix. No evidence of signi ficant lymphadenopathy. No suspicious bony findings. IMPRESSION: Mild acute pancreatitis involving the pancreatic tail suspected. Correlation with amylas e and lipase suggested.
--- NOTE | 2022-03-15 21:39 | EDPHYS ---
Physician Documentation [facility] Name: Sal Gomez Age: 22 yrs Sex: Male : 2000 Arrival Date: 03/15/2022 Time: 19:27 Bed 6 Private MD: ED Physician Angel Mcdonald HPI: 03/15 19:47 This 22 yrs old Male presents to ER via Wheelchair with complaints of Fall Injury, rn Headache, Head Injury With LOC-Adult, Abdominal Pain, Nausea/Vomiting. 19:47 Details of fall: The patient fell from seated position. Onset: The symptoms/episode rn began/occurred just prior to arrival. Associated injuries: The patient sustained injury to the head. Severity of symptoms: At their worst the symptoms were mild, in the emergency department the symptoms are unchanged. The patient has not experienced similar symptoms in the past. The patient has been recently seen by a physician: The patient has been recently seen at the [facility] Emergency Department. Pt reports ongoing abd pain with nausea/vomiting, has hx of pancreatitis, seen here recently and discharged, states pain is worse. Today was seated on ground after got lightheaded, then passed out, hitting back of head on concrete. + headache, but states abd pain is worse than headache.. Historical: - Allergies: 19:41 No Known Allergies; tw5 - PMHx: 19:41 borderline personlity disorder; Cerebrovascular accident; Hypertensive disorder; tw5 necrotizing pancreatitis; PTSD; - PSHx: 19:41 Appendectomy; Hip surgery; tw5 - Immunization history:: Flu vaccine is not up to date. - Social history:: Smoking status: Reported history of juuling and/or vaping. - Family history:: not pertinent. - Hospitalizations: : No recent hospitalization is reported. ROS: 19:47 Constitutional: Negative for fever, chills, and weight loss, Eyes: Negative for injury, rn pain, redness, and discharge, Neck: Negative for injury, pain, and swelling, Cardiovascular: Negative for chest pain, palpitations, and edema, Respiratory: Negative for shortness of breath, cough, wheezing, and pleuritic chest pain, Abdomen/GI: + abd pain and nausea/vomiting Back: Negative for injury and pain, MS/Extremity: Negative for injury and deformity, Skin: Negative for injury, rash, and discoloration, Neuro: + headache and weakness Exam: 19:47 Constitutional: Disheveled male, no acute distress Head/Face: Normocephalic, rn atraumatic. Eyes: Periorbital areas with no swelling, redness, or edema. ENT: dry MM Cardiovascular: Regular rate and rhythm. No pulse deficits. Respiratory: No increased work of breathing, no retractions or nasal flaring. Abdomen/GI: soft, + epigastric and LUQ tenderness, no rebound Skin: Warm, dry MS/ Extremity: Pulses equal, no cyanosis. Neuro: Awake and alert, GCS 15, oriented to person, place, time, and situation. Cranial nerves II-XII grossly intact. Motor strength 5/5 in all extremities. Sensory grossly intact. 20:09 ECG was reviewed by the Attending Physician. rn Vital Signs: 19:37 BP 145 / 100; Pulse 95; Resp 18; Temp 98.2; Pulse Ox 100% on R/A; Weight 99.79 kg; tw5 Height 5 ft. 5 in. (165.10 cm); Pain 8/10; 20:27 BP 148 / 104; Pulse 97; Resp 15 S; Pulse Ox 96% on R/A; as6 21:56 BP 139 / 91; Pulse 88; Resp 21 S; Pulse Ox 97% on R/A; as6 23:58 BP 117 / 74; Pulse 82; Resp 21 S; Pulse Ox 95% on R/A; as6 19:37 Body Mass Index 36.61 (99.79 kg, 165.10 cm) tw5 MDM: 19:27 Patient medically screened. rn 21:36 Differential diagnosis: closed head injury, contusion, pancreatitis, necrotizing rn pancreatitis, intractable pain. Data reviewed: vital signs, nurses notes, lab test result(s), radiologic studies, CT scan, and as a result, I will admit patient. Counseling: I had a detailed discussion with the patient and/or guardian regarding: the historical points, exam findings, and any diagnostic results supporting the discharge/admit diagnosis, lab results, radiology results, the need for further work-up and treatment in the hospital, the need to transfer to another facility, for higher level of care, [facility] does not immediately have the required specialist. Response to treatment: the patient's symptoms have mildly improved after treatment, and as a result, I will admit patient. 03/15 19:40 Order name: CBC with Diff; Complete Time: 20:43 rn 03/15 19:40 Order name: CMP; Complete Time: 20:49 rn 03/15 19:40 Order name: Lipase; Complete Time: 20:49 rn 03/15 19:40 Order name: CT Abd/Pelvis - IV Contrast Only; Complete Time: 21:35 rn 03/15 19:40 Order name: CT Head Brain wo Cont; Complete Time: 21:35 rn 03/15 19:40 Order name: SARS RAPID; Complete Time: 20:43 rn 03/15 19:40 Order name: EKG; Complete Time: 19:42 rn 03/15 19:40 Order name: IV Saline Lock; Complete Time: 20:25 rn 03/15 19:40 Order name: Labs collected and sent; Complete Time: 20:25 rn 03/15 19:40 Order name: EKG - Nurse/Tech; Complete Time: 20:25 rn 03/15 19:40 Order name: Cardiac monitoring; Complete Time: 20:25 rn EC:09 Rate is 87 beats/min. Rhythm is regular. QRS [place] is Normal. OK interval is normal. QRS rn interval is normal. QT interval is normal. No Q waves. T waves are Normal. No ST changes noted. Clinical impression: Normal ECG. Interpreted by me. Reviewed by me. Administered Medications: 20:20 Drug: NS 0.9% 1000 ml Route: IV; Rate: 1 bolus; Site: right forearm; as6 22:30 Follow up: Response: No adverse reaction; IV Status: Completed infusion; IV Intake: as6 1000ml 20:20 Drug: Pepcid (famotidine) 20 mg Route: IVP; Site: right forearm; as6 22:30 Follow up: Response: No adverse reaction as6 20:20 Drug: Zofran (Ondansetron) 4 mg Route: IVP; Site: right forearm; as6 22:30 Follow up: Response: No adverse reaction as6 20:20 Drug: morphine 4 mg Route: IVP; Infused Over: 4 mins; Site: right forearm; as6 22:30 Follow up: Response: No adverse reaction as6 21:56 Drug: Zosyn (piperacillin-tazobactam) 3.375 grams Route: IVPB; Infused Over: 60 mins; as6 Site: right forearm; 22:31 Follow up: Response: No adverse reaction; IV Status: Completed infusion; IV Intake: as6 100ml 21:56 Drug: morphine 4 mg Route: IVP; Infused Over: 4 mins; Site: right forearm; as6 22:31 Follow up: Response: No adverse reaction as6 03/16 00:10 Drug: morphine 4 mg Route: IVP; Infused Over: 4 mins; Site: right forearm; as6 00:10 Follow up: Response: No adverse reaction as6 Disposition Summary: 03/15/22 21:38 Transfer Ordered Reason: Higher level of care rn Condition: Stable rn Problem: an acute exacerbation rn 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 Jacob(03/16/22 00:10) as6 Diagnosis - Acute pancreatitis with infected necrosis, unspecified rn - Dehydration rn Forms: - Medication Reconciliation Form rn - SBAR form rn Signatures: Dispatcher [employer] EDAngel Boyer MD MD rn Wood, Tiffany tw5 Michael Verduzco RN RN as6 Corrections: (The following items were deleted from the chart) 03/15 22:43 21:38 Dr. zamora rn 22:43 21:38 [facility] rn rn 03/16 00:10 03/15 22:43 Dr. Jacob rn as6
--- NOTE | 2022-03-15 21:39 | ER ---
Nurse's Notes [facility] Name: Sal Gomez Age: 22 yrs Sex: Male : 2000 Arrival Date: 03/15/2022 Time: 19:27 Bed 6 Private MD: Diagnosis: Acute pancreatitis with infected necrosis, unspecified;Dehydration Presentation: 03/15 19:37 Chief complaint: Patient states: "I just feel like my pancreatitis never got any tw5 better. I am having trouble getting the antibiotics, I am having trouble affording them. Earlier today I also passed out and I am feeling really dizzy.". Coronavirus screen: Vaccine status: Patient reports receiving the 1st dose of the Covid vaccine. J and J. Ebola Screen: Patient negative for fever greater than or equal to 101.5 degrees Fahrenheit, and additional compatible Ebola Virus Disease symptoms Patient denies exposure to infectious person. Patient denies travel to an Ebola-affected area in the 21 days before illness onset. Initial Sepsis Screen: Does the patient meet any 2 criteria? HR > 90 bpm. Does the patient have a suspected source of infection? Yes: Acute abdominal pain. Risk Assessment: Do you want to hurt yourself or someone else? Patient reports no desire to harm self or others. Onset of symptoms is unknown. 19:37 Method Of Arrival: Wheelchair tw5 19:37 Acuity: DANICA 3 tw5 Triage Assessment: 19:41 General: Appears uncomfortable, obese, Behavior is calm, cooperative. Pain: Pain tw5 currently is 8 out of 10 on a pain scale. Historical: - Allergies: 19:41 No Known Allergies; tw5 - PMHx: 19:41 borderline personlity disorder; Cerebrovascular accident; Hypertensive disorder; tw5 necrotizing pancreatitis; PTSD; - PSHx: 19:41 Appendectomy; Hip surgery; tw5 - Immunization history:: Flu vaccine is not up to date. - Social history:: Smoking status: Reported history of juuling and/or vaping. - Family history:: not pertinent. - Hospitalizations: : No recent hospitalization is reported. Screenin:42 Abuse screen: Denies threats or abuse. Denies injuries from another. Nutritional tw5 screening: No deficits noted. Tuberculosis screening: No symptoms or risk factors identified. 20:27 Fall Risk Fall in past 12 months (25 points). Total [place] Fall Scale indicates Low Risk as6 Score (25-44 pts). Fall prevention measures have been instituted. Side Rails Up X 2. Assessment: 20:26 General: Appears uncomfortable, Behavior is calm, cooperative. Pain: Complains of pain as6 in left upper quadrant and abdomen diffusely. Neuro: Level of Consciousness is awake, alert, obeys commands, Reports headache. Respiratory: Respiratory effort is even, unlabored, Breath sounds are clear bilaterally. GI: Bowel sounds present X 4 quads. Reports upper abdominal pain, nausea, vomiting. 21:56 General: pt states nausea has improved . as6 22:31 Reassessment: Patient states feeling better. as6 Vital Signs: 19:37 BP 145 / 100; Pulse 95; Resp 18; Temp 98.2; Pulse Ox 100% on R/A; Weight 99.79 kg; tw5 Height 5 ft. 5 in. (165.10 cm); Pain 8/10; 20:27 BP 148 / 104; Pulse 97; Resp 15 S; Pulse Ox 96% on R/A; as6 21:56 BP 139 / 91; Pulse 88; Resp 21 S; Pulse Ox 97% on R/A; as6 23:58 BP 117 / 74; Pulse 82; Resp 21 S; Pulse Ox 95% on R/A; as6 19:37 Body Mass Index 36.61 (99.79 kg, 165.10 cm) tw5 ED Course: 19:27 Patient arrived in ED. jj6 19:27 Angel Mcdonald MD is Attending Physician. rn 19:30 Michael Verduzco RN is Primary Nurse. as6 19:41 Triage completed. tw5 19:41 Arm band placed on right wrist. tw5 20:15 Inserted saline lock: 20 gauge in right forearm, using aseptic technique. Blood as6 collected. 20:25 CBC with Diff Sent. as6 20:25 CMP Sent. as6 20:25 Lipase Sent. as6 20:25 SARS RAPID Sent. as6 20:27 Placed in gown. Bed in low position. Call light in reach. Side rails up X2. Client as6 placed on continuous cardiac and pulse oximetry monitoring. NIBP monitoring applied. Warm blanket given. 21:21 CT Abd/Pelvis - IV Contrast Only In Process Unspecified. EDMS 21:21 CT Head Brain wo Cont In Process Unspecified. EDMS 23:58 No provider procedures requiring assistance completed. Patient transferred, IV remains as6 in place. Administered Medications: 20:20 Drug: NS 0.9% 1000 ml Route: IV; Rate: 1 bolus; Site: right forearm; as6 22:30 Follow up: Response: No adverse reaction; IV Status: Completed infusion; IV Intake: as6 1000ml 20:20 Drug: Pepcid (famotidine) 20 mg Route: IVP; Site: right forearm; as6 22:30 Follow up: Response: No adverse reaction as6 20:20 Drug: Zofran (Ondansetron) 4 mg Route: IVP; Site: right forearm; as6 22:30 Follow up: Response: No adverse reaction as6 20:20 Drug: morphine 4 mg Route: IVP; Infused Over: 4 mins; Site: right forearm; as6 22:30 Follow up: Response: No adverse reaction as6 21:56 Drug: Zosyn (piperacillin-tazobactam) 3.375 grams Route: IVPB; Infused Over: 60 mins; as6 Site: right forearm; 22:31 Follow up: Response: No adverse reaction; IV Status: Completed infusion; IV Intake: as6 100ml 21:56 Drug: morphine 4 mg Route: IVP; Infused Over: 4 mins; Site: right forearm; as6 22:31 Follow up: Response: No adverse reaction as6 03/16 00:10 Drug: morphine 4 mg Route: IVP; Infused Over: 4 mins; Site: right forearm; as6 00:10 Follow up: Response: No adverse reaction as6 Medication: 03/15 22:31 VIS not applicable for this client. as6 Intake: 22:30 IV: 1000ml; Total: 1000ml. as6 22:31 IV: 100ml; Total: 1100ml. as6 Outcome: 21:38 ER care complete, transfer ordered by . noah 23:58 Transferred by ground EMS to [facility], Transfer form as6 completed. 23:58 Condition: stable 23:58 Instructed on the need for transfer. 03/16 00:10 Patient left the ED. as6 Signatures: Dispatcher [employer] EDMS Angel Mcdonald MD MD rn Wood, Tiffany tw5 Randi Bella6 Michael Verduzco, RN RN as6
[2022-03-15] MEDS ORDERED: PIPERACIL/TAZO 3.375 GM VIAL IV ONE (21:47)
[2022-03-15] MEDS ORDERED: NA CHLORIDE 0.9% 100 ML IV ONE (21:47)
[2022-03-16] MEDS ORDERED: MORPHINE 4 MG/ML SYR ONE (00:07)
[2022-03-16 00:19] VITALS: TEMP 98.2
[2022-03-16 00:23] VITALS: BP 117/74; O2SAT 95
== END 2022-03-16 00:10 | disposition short-term general hospital (02) ==
LOC: ER 19:22
DX: K85.92 Acute pancreatitis with infected necrosis, unspecified (principal); E86.0 Dehydration; Z20.822 Contact with and (suspected) exposure to COVID-19
CPT/HCPCS: 96365; 96361; 93005; 85025; 36415; 83690; 80053; 70450; 74177; 96375; 99285; 87811; Q9967; J2543; J7030; J2405

== ENCOUNTER 2022-05-25 19:49 | Emergency (ER) | payer OTHER ==
--- OUTSIDE RECORDS SUMMARY | 2022-05-25 20:25 | XMS REPORT | Continuity of Care Document ---
:2000 Author Organization [facility] t Address [address] [place] [address] Care Team Providers Name Role Phone Pcp, Patient Does Not Have A Primary Care Physician [phone] [id number] Attending Clinician Unavailable WILLARD CROUCH EMILE Attending Clinician Unavailable Bro MANUEL, Stefany Attending Clinician JUAN JOSÉ GARCIA Attending Clinician Unavailable Estrada Sinclair MD Attending Clinician Juan José Garcia MD Attending Clinician Corrie Jacob MD Attending Clinician Doctor Unassigned, [employer] Attending Clinician Unavailable ANETA GUTIERREZ Attending Clinician Unavailable Aneta Gutierrez DO Attending Clinician Silvio Rascon MD Attending Clinician SILVIO RASCON Attending Clinician Unavailable Masood MANUEL, Cy Attending Clinician Willard Crouch Attending Clinician Unavailable Estrada MANUEL, Gricelda Galindo Attending Clinician Gabriel MANUEL, Nilsa Graham Attending Clinician Deshawn MANUEL, Keron Marino Attending Clinician Galo MANUEL, Shama Angulo Attending Clinician Eli MANUEL, Irina Attending Clinician GRICELDA ARTEAGA Attending Clinician Unavailable IRINA BENITEZ Attending Clinician Unavailable Tamia Jha Attending Clinician Hallie MANUEL, Marck Johnson Attending Clinician [phone] Lissette MANUEL, Amado Attending Clinician Shawn Lamar Attending Clinician Millie Gomez MD Attending Clinician Laith MANUEL, Khushi Goode Attending Clinician [phone] Marva MANUEL, Bethany Roberts Attending Clinician Melissa Leung MD Attending Clinician Magda MANUEL, Suhail Conner Attending Clinician [phone] BETHANY DURHAM Attending Clinician Unavailable AMADO GOYAL Attending Clinician Unavailable DOUG JOSHI Attending Clinician Unavailable Kimmy Nunn MD Attending Clinician Rebecca MANUEL, Kathy Echols Attending Clinician [phone] SUHAIL MAN Attending Clinician Unavailable Cherri MANUEL, Aravind Ordaz Attending Clinician Vicki MANUEL, Ary Hargrove Attending Clinician [phone] Victor M MANUEL, Mana Mireles Attending Clinician Mervin MANUEL, Vernell Hunt Attending Clinician [phone] Rose Lorenzo MD Attending Clinician Karen MANUEL, Oren Attending Clinician Rebecca Cuellar MD Attending Clinician BEAR OSPINA Attending Clinician Unavailable [id number] Admitting Clinician Unavailable TI, WILLARD, WILLARD Admitting Clinician Unavailable TALI, CORRIE Admitting Clinician Unavailable Corrie Jacob MD Admitting Clinician ANETA GUTIERREZ Admitting Clinician Unavailable SILVIO RASCON Admitting Clinician Unavailable Ti, Willard Admitting Clinician Unavailable NILSA RIOS GLADYS Admitting Clinician Unavailable GRICELDA ARTEAGA Admitting Clinician Unavailable BETHANY DURHAM Admitting Clinician Unavailable KNOW, DOES_NOT Admitting Clinician Unavailable CY CORREIA Admitting Clinician Unavailable VERNELL GONZALEZ Admitting Clinician Unavailable Payers Payer Name Policy Type Policy Number Effective Date Expiration Date S ourtimothy CIG CIG [id number] [facility] [id number] [facility] [id number] CIGNA PPO [id number] 2021 00:00:00 [facility] [id number] 2022 PLUS 00:00:00 GENERIC-CIGNA - [id number] 2021 2021 CIGNA 00:00:00 00:00:00 [facility] [id number] [facility]-MEDICAID - [id number] MEDICAID MEDICAID [facility] [id number] 2021 00:00:00 Problems Condition Condition Condition Status Onset Resolution Last Treating Co mments Source Name Details Category Date Date Treatment Clinician Date Abdominal Abdominal Disease Active 2021-05 Uni vers pain pain 0-28 ity of 00:00: [place] [address] Medical Branch Obesity Obesity Disease Active 2021-05 Univers (BMI (BMI 0-28 ity of 30-39.9) 30-39.9) 00:00: [place] [address] Medical Branch Abscess Abscess Disease Active 2021-[address] [facility] between between 0-20 [facility] intestinal intestinal 00:00: Me dical loops loops 00 [place] Abscess Abscess Disease Active [facility] 9[facility]08 [facility] 00:00: [place] [id number] Center Intra-abdo Intra-abdo Disease Active [facility] modesta modesta 7-21 [facility] abscess abscess 00:00: Medical 00 [place] Necrotizin Necrotizin Disease Active [facility] g g 5-12 [facility] pancreatit pancreatit 00:00: Me dical is is 00 Center Severe Severe Disease Active [facility] protein-ca protein-ca 4-15 [facility] tracy molina 00:00: Medical malnutriti malnutriti 00 Ce nter on (Gorman: on (Gorman: less than less than 60% of 60% of standard standard weight) weight) Elevated Elevated Disease Active [facility] ferritin ferritin 4-13 [facility] (>16k) (>16k) 00:00: Medical 00 [place] Pancytopen Pancytopen Disease Active [facility] ia ia -13 [facility] 00:00: Medical 00 [place] Pre-diabet Pre-diabet Disease Active [facility] es es 08-26 [facility] 00:00: Medical 00 [place] Hx of TIA Hx of TIA Disease Active [facility] (transient (transient 08-26 [facility] ischemic ischemic 00:00: Medica l [...] ubinemia ubinemia 08-25 [facility] 00:[facility]: Medical 00 Center Elevated Elevated Disease Active [facility] LFTs LFTs 08-25 [facility] 00:00: Medical 00 [place] SLE SLE Disease Active [facility] (systemic (systemic 408 [facility] 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:00: Medical erythemato erythemato 00 Ce nter margot margot related related syndrome) syndrome) Bipolar Bipolar Disease Active [facility] disorder disorder 08 [facility] 00:00: Medical 00 [place] Essential Essential Disease Active [facility] hypertensi hypertensi -08 [facility] on on 00:00: Medical 00 Center Allergies, Adverse Reactions, Alerts Allergy Allergy Status Severity Reaction(s) Onset Inactive Treating Comm ents Source Name Type Date Date Clinician ADHESIVE Drug Active Rash 2021-05 Univers Class 0-28 ity of 00:00: [place] 00 Medical Branch Adhesive Propensi Active Rash 2021-05 Univer s ty to 0-28 ity of adverse 00:00: [place] reaction 00 Medical s Branch Adhesive Propensi Active 2021-[address] [facility] Tape ty to 0-21 [facility] adverse 00:00: Medical reaction 00 Center s ADHESIVE Allergy Active 2021-[address] [facility] TAPE 0-21 [facility] 00:00: Medical 00 Center NO KNOWN Drug Active Univers ALLERGIE Class ity of S [facility] NO KNOWN Allergy Active [facility] Family History Family Member Diagnosis Comments Start Date Stop Date Source Natural father Drug abuse [facility] Natural mother Drug abuse [facility] Social History Social Habit Start Date Stop Date Quantity Comments Source History [facility] Non-Med Medical Center History of Passive smoker University of tobacco use [facility] Exposure to 2022-03-04 2022-03-14 Not sure University SARS-CoV-2 00:00:00 14:36:00 [facility] (event) [place] Alcohol intake 2022-03-08 2022-03-08 Ex-drinker [facility] 00:00:00 00:00:00 (finding) Medical Center Tobacco use and 2021-12-08 2021-12-[address] [facility] exposure 00:00:00 00:00:00 Medical Center History [facility] 2021-12-08 2021-12-[address] [facility] Transport Med 00:00:00 00:00:[address] History [facility] 2021-12-08 2021-12-[address] [facility] Housing Unable to 00:00:00 00:00:00 Medical Center Pay History [facility] 2021-12-08 2021-12-[address] [facility] Housing Homeless 00:00:00 00:00:00 Medical Center Last Year History [facility] 2021-08-26 2021-08-[address] [facility] Housing Places 00:00:00 00:00:00 Medical Ce nter Lived Sex Assigned At [address] [facility] 00:00:00 00:00:00 Medical Center Smoking Status Start Date Stop Date Source Tobacco smoking University [facility] xa consumption unknown Medical Bran Occasional tobacco smoker 2022-03-16 00:00:00 [facility] Branch Former smoker 2021-12-08 00:00:00 2021-12-08 [facility] 00:00:00 Center Medications Ordered Filled Start Stop Current Ordering Indication Dosage Frequency Signature Comments Components Source Medication Medication Date Date Medication? Clinician (SIG) Name Name ondansetron 2021-05 Yes 8mg 8 mg, Unive rs (ZOFRAN-ODT 0-30 Oral, Q6H, it y of ) 17:00: First dose [place] disintegrat 00 (after Medica l ing tablet last Branch 8 mg modificati on) on 03/18/22 at 1200, Until Discontinu ed, Routine lactulose 2021-05 Yes 15mL 15 mL, Univer s (CEPHULAC) 0-30 Oral, ity of solution 15 15:45: DAILY, [place] mL 00 First dose Medical on Sun Branch 03/18/22 at 1045, Until Discontinu ed, Routine magnesium 2021-05- No 4g 4 g, IV Univ ers sulfate in 0-30 10-30 Piggyback, it y of water 4 15:00: 14:15 ONCE, 1 [place] gram/50 mL 00 :00 dose, On Medic al (8 %) IV [place] Branch Piggyback 4 03/18/22 g at 1000, Routine ondansetron 2021-05- No 8mg 8 mg, Univ ers (ZOFRAN-ODT 0-30 10-30 Oral, ity of ) 00:36: 15:40 Q6HPRN, [place] disintegrat 34 :15 Starting Medi doreen ing tablet on Sat Branch 8 mg 03/17/22 at 1936, Until 03/18/22 at 1040, Routine, Nausea and Vomiting (N/V) lisinopriL 2021-05- Yes [id number] 5mg Take 1 Univers 5 mg tablet 0-30 11-30 tablet by it y of 00:00: 05:59 mouth in [place] 00 :00 the Medical morning Branch for 30 days. pantoprazol 2021-05- Yes [id number] 40mg Take 1 Univers e 40 mg EC 0-30 11-30 tablet by ity of tablet 00:00: 05:59 mouth in [place] 00 :00 the Medical morning Branch for 30 days. risperiDONE 2021-05- Yes [id number] .5mg Take 1 Univers 0.5 mg 0-30 11-30 tablet by ity of tablet 00:00: 05:59 mouth [place] 00 :00 every Medical morning Branch for 30 days. SERTraline 2021-05- Yes [id number] 50mg Take 1 Univers 50 mg 0-30 11-30 tablet by ity of tablet 00:00: 05:59 mouth in [place] 00 :00 the Medical morning Branch for 30 days. lisinopriL 2021-05- Yes [id number] 5mg Take 1 Univers 5 mg tablet 0-30 11-30 tablet by it y of 00:00: 05:59 mouth in [place] 00 :00 the [facility] morning Branch for 30 days. pantoprazol 2021-05- Yes [id number] 40mg Take 1 Univers e 40 mg EC 0-30 11-30 tablet by ity of tablet 00:00: 05:59 mouth in [place] 00 :00 the Medical morning Branch for 30 days. risperiDONE 2021-05- Yes [id number] .5mg Take 1 Univers 0.5 mg 0-30 11-30 tablet by ity of tablet 00:00: 05:59 mouth [place] 00 :00 every Medical morning Branch for 30 days. SERTraline 2021-05- Yes [id number] 50mg Take 1 Univers 50 mg 0-30 11-30 tablet by ity of tablet 00:00: 05:59 mouth in [place] 00 :00 the [facility] morning Branch for 30 days. lipase-prot 2021-05- Yes [id number] 2{capsu Take 2 Univers ease-amylas 0-30 11-14 le} capsules ity of e 00:00: 05:59 by mouth [place] 12,000-38,0 00 :00 in the Medica l 00 -60,000 morning Branch unit and 2 capsule capsules at noon and 2 capsules in the evening. Take with meals. Do all this for 14 days. docusate 2021-05- Yes [id number] 100mg Take 1 Univers 100 mg 0-30 11-10 capsule by ity of capsule 00:00: 05:59 mouth in [place] 00 :00 the [facility] Branch for 10 days. gadobenate 2021-05 [id number] .2mL/kg 19.96 mL Univers dimeglumine 03-17 (0.2 mL/kg i ty of (MULTIHANCE 16:00: 16:00 ?99.8 kg), [place] -20 mL) 00 :00 Intravenou Medica l injection s, ONCE, 1 Bran ch 19.96 mL dose, On [facility] 03/17/22 at 1100, Routine LORazepam 2021-05 2mg 2 mg, Univer s (ATIVAN) 03-17 Oral, ity of tablet 2 mg 16:00: 15:12 ONCE, 1 [place] 00 :[place] dose, On Medical [facility] Branch 03/17/22 at 1100, Routine HYDROcodone 2021-05 Yes 1{tbl} 1 tablet, Univers -acetaminop Oral, ity of hen (NORCO 14:12: Q6HPRN, [place] 5) 5-325 mg 34 Starting Medi doreen tablet 1 on [facility] Branch tablet 03/17/22 at 0912, Until Discontinu ed, Routine, Pain (scale 4-6) lisinopriL 2021-05 Yes 5mg 5 mg, Univer s (PRINIVIL,Z Oral, ity of ESTRIL) 14:00: DAILY, [place] tablet 5 mg 00 First dose Me dical on [facility] Branch 03/17/22 at 0900, Until Discontinu ed, Routine pantoprazol 2021-05 Yes 40mg 40 mg, Univ ers e Oral, ity of (PROTONIX) 14:00: DAILY, [place] EC tablet 00 First dose Medi doreen 40 mg on Sat Branch 03/17/22 at 0900, Until Discontinu ed, Routine KCL 2021-05 40meq 40 mEq, Univers (KLOR-CON 03-17 Oral, ity of M20) tablet 13:00: 13:03 ONCE, 1 [place] 40 mEq 00 :00 dose, On Medical Sat Branch 03/17/22 at 0800, Routine HYDROcodone 2021-05- No 1{tbl} 1 tablet, Univers -acetaminop 0-29 10-29 Oral, ity of hen (NORCO 02:18: 02:26 ONCE, 1 [place] 5) 5-325 mg 00 :00 dose, On Medi doreen tablet 1 Fri Branch tablet 03/16/22 at 2130, Routine traZODone 2021-05 Yes 50mg 50 mg, Univer s (DESYREL) 0-29 Oral, QHS, ity of tablet 50 02:00: First dose [place] mg 00 on Fri Medical 03/16/22 Branch at 2100, Until Discontinu ed, Routine traZODone 2021-05- Yes [id number] 50mg Take 1 Univers 50 mg 0-29 11-29 tablet by ity of tablet 00:00: 05:59 mouth at [place] 00 :00 bedtime Medical for 30 Branch days. ondansetron 2021-05- Yes [id number] 4mg Take 1 Univers 4 mg tablet 0-29 11-29 tablet by it y of 00:00: 05:59 mouth [place] 00 :00 every 8 Medical (eight) Branch hours as needed for Nausea and Vomiting (N/V) for up to 30 days. traZODone 2021-05- Yes [id number] 50mg Take 1 Univers 50 mg 0-29 11-29 tablet by ity of tablet 00:00: 05:59 mouth at [place] 00 :00 bedtime Medical for 30 Branch days. ondansetron 2021-05- Yes [id number] 4mg Take 1 Univers 4 mg tablet 0-29 11-29 tablet by it y of 00:00: 05:59 mouth [place] 00 :00 every 8 Medical (eight) Branch hours as needed for Nausea and Vomiting (N/V) for up to 30 days. HYDROcodone 2021-05- Yes [id number] 1{tbl} Take 1 U nivers -acetaminop 0-29 11-06 tablet by it y of hen (NORCO) 00:00: 04:59 mouth [place] 10-325 mg 00 :00 every 6 Medical tablet (six) Branch hours as needed for Pain (scale 7-10) for up to 7 days. Indication s: acute pain HYDROcodone 2021-05- Yes [id number] 1{tbl} Take 1 U nivers -acetaminop 0-29 11-06 tablet by it y of hen 5-325 00:00: 04:59 mouth [place] mg tablet 00 :00 every 6 Medical (six) Branch hours as needed for Pain (scale 4-6) for up to 7 days. Indication s: acute pain enoxaparin 2021-05 Yes 40mg 40 mg, Unive rs (LOVENOX) 0-28 Subcutaneo ity of injection 22:00: us, DAILY, [place] 40 mg 00 First dose Medical on Sat Branch 03/16/22 at 1700, Until Discontinu ed, Routine sennosides 2021-05 Yes 8.6mg 8.6 mg, Uni vers (SENOKOT) 0-28 Oral, ity of tablet 8.6 14:00: DAILY, [place] mg 00 First dose Medical on Sat Branch 03/16/22 at 0900, Until Discontinu ed, Routine lidocaine 2021-05 Yes 1{patch 1 Patch, U nivers (LIDODERM) 0-28 } Topical, ity o f 5 % (700 14:00: Administer [place] as mg/patch) 00 over 12 Medical patch 1 Hours, Branch Patch DAILY, First dose (after last reorder) on Sat03/16/22 at 0900, Until Discontinu ed, Routine risperiDONE 2021-05 Yes .5mg 0.5 mg, Uni vers (RISPERDAL) 0-28 Oral, QAM, it y of tablet 0.5 14:00: First dose [place] mg 00 on Sat Medical 03/16/22 Branch at 0900, Until Discontinu ed, Routine SERTraline 2021-05 Yes 50mg 50 mg, Unive rs (ZOLOFT) 0-28 Oral, ity of tablet 50 14:00: DAILY, [place] mg 00 First dose Medical on Sat Branch 03/16/22 at 0900, Until Discontinu ed, Routine docusate 2021-05 Yes 100mg 100 mg, Unive rs (COLACE) 0-28 Oral, ity of capsule 100 14:00: DAILY, [place] mg 00 First dose Medical on Sat Branch 03/16/22 at 0900, Until Discontinu ed, Routine polyethylen 2021-05 Yes 17g 17 g, Unive rs e glycol 0-28 Oral, BID, ity o f 3350 powder 13:00: First dose [place] 17 g 00 on Sat Medical 03/16/22 Branch at 0800, Until Discontinu ed, Routine lipase-prot 2021-05 Yes 2{capsu 2 capsule, Univers ease-amylas 0 le} Oral, TID ity of e (CREON) 13:00: MEALS, [place] 12,000-38,0 00 First dose Me dical 00 -60,000 (after Branch unit last capsule 2 modificati capsule on) on Sat03/16/22 at 0800, Until Discontinu ed, Routine pantoprazol 2021-05- No 40mg 40 mg, Uni vers e 03-16 Slow IV ity of (PROTONIX) 13:00: 19:44 Push, [place] injection 00 :37 Q12H, Medical 40 mg First dose Branch on Sat03/16/22 at 0800, Until Discontinu ed morpHINE (2 2021-05 No 2mg 2 mg, Slow Univers mg/mL) 03-18 IV Push, ity of injection 2 09:31: 02:20 Q6HPRN, [place] mg 19 :53 Starting Medical on Sat Branch 03/16/22 at 0431, Until 03/17/22 at 2120, Routine, Pain (scale 7-10) lidocaine 2021-05- No 1{patch 1 Patch, Univers (LIDODERM) 03-16 } Topical, ity of 5 % (700 08:30: 20:58 Administer [place] mg/patch) 00 :00 over 12 Medical patch 1 Hours, Branch Patch ONCE, 1 dose, On Sat03/16/22 at 0330, Routine carvediloL 2021-05 Yes 12.5mg 12.5 mg, U nivers (COREG) 0 Oral, BID ity of tablet 12.5 07:45: MEALS, [place] mg 00 First dose Medical on Sat Branch 03/16/22 at 0245, Until Discontinu ed, Routine lactated 2021-05 Yes 1000mL at 125 Unive rs ringers IV 0-28 mL/hr, ity of infusion 07:00: 1,000 mL, [place] 1,000 mL 00 IV Medical Infusion, Branch CONTINUOUS , Starting on Sat03/16/22 at 0200, Until Discontinu ed, Routine acetaminoph 2021-05- No 1{tbl} 1 tablet, Univers en-codeine 0 10 Oral, ity of (TYLENOL 06:56: 14:12 Q6HPRN, [place] #3) 300-30 37 :50 Starting Medic al mg tablet 1 on Fri Branch tablet 03/16/22 at 0156, Until 03/17/22 at 0912, Routine, Pain (scale 4-6) acetaminoph 2021-05 Yes 650mg 650 mg, Un hillary en 0- Oral, ity of (TYLENOL) 06:56: Q6HPRN, [place] tablet 650 35 Starting Medic al mg on Fri Branch 03/16/22 at 0156, Until Discontinu ed, Routine, Pain (scale 1-3) HYDROcodone 2021-05- No 1{tbl} 1 tablet, Univers -acetaminop 003-14 Oral, ity of hen (NORCO) 22:30: 22:20 ONCE, 1 [place] 10-325 mg 00 :00 dose, On Medica l tablet 1 Sat Branch tablet 03/14/22 at 1730, Routine iopamidol 2021-05- No [id number] 65mL 65 mL, Un hillary (ISOVUE 003-14 Intravenou ity o f 370-500 mL) 21:30: 21:30 s, ONCE, 1 [place] injection 00 :00 dose, On Medica l 65 mL Wed Branch 03/14/22 at 1630, Routine ondansetron 2021-05 No 4mg 4 mg, Slow Univers (ZOFRAN 03-14 IV Push, ity of (PF)) 20:45: 20:44 ONCE, 1 [place] injection 4 00 :00 dose, On Medi doreen mg Wed Branch 03/14/22 at 1545, JON morpHINE (4 2021-05 No 4mg 4 mg, Slow Univers mg/mL) 03-14 IV Push, ity of injection 4 20:45: 20:44 ONCE, 1 [place] mg 00 :00 dose, On Medical Wed Branch 03/14/22 at 1545, STAT NaCl 0.9% 2021-05- No 30mL/kg at 999 Un hillary (NS) bolus 0-26 10-26 mL/hr, ity of infusion 20:15: 23:27 2,994 mL [place] 2,994 mL 00 :00 (30 mL/kg Medica l ?99.8 kg), Branch IV Piggyback, ONCE, 1 dose, On Sat03/14/22 at 1515, STAT ertapenem 2021-05- No 1000mg 1,000 mg, Univers (INVANZ) 0-26 10-26 IV ity of 1,000 mg in 19:30: 21:22 Piggyback, [place] NaCl 0.9% 00 :00 ONCE, 1 Medical (NS) 50 mL dose, On Branc h MINI-BAG Sat03/14/22 at 1430, Administer over 30 Minutes, 50 mL
Reas on for Anti-Infec tive: Documented Infection< br>Documen hernandez Infection Site: Abdominal& lt;br>Dura tion of Therapy: 7 days
Re stricted use approved by: Documented ESBL infection or colonizati on cefdinir 2021-05- Yes [id number] 300mg Take 1 Un hillary 300 mg 0-26 11-10 capsule by ity of capsule 00:00: 05:59 mouth [place] 00 :00 every 12 Medical (twelve) Branch hours for 14 days. metroNIDAZO 2021-05- Yes [id number] 500mg Take 1 Univers LE 500 mg 0-26 11-10 tablet by ity of tablet 00:00: 05:59 mouth in [place] 00 :00 the Medical morning Branch and 1 tablet in the evening. Do all this for 14 days. fluconazole 2021-05- Yes [id number] 150mg Take 1 Univers 150 mg 0-26 11-10 tablet by ity of tablet 00:00: 05:59 mouth in [place] 00 :00 the Medical morning Branch for 14 doses. cefdinir 2021-05- No [id number] 300mg Take 1 Un hillary 300 mg 0-26 10-29 capsule by ity of capsule 00:00: 00:00 mouth [place] 00 :00 every 12 Medical (twelve) Branch hours for 14 days. metroNIDAZO 2021-05- No [id number] 500mg Take 1 Univers LE 500 mg 0-26 10-29 tablet by ity of tablet 00:00: 00:00 mouth in [place] 00 :00 the [facility] and 1 tablet in the evening. Do all this for 14 days. fluconazole 2021-05- No [id number] 150mg Take 1 Univers 150 mg 0-26 10-29 tablet by ity of tablet 00:00: 00:00 mouth in [place] 00 :00 the [facility] for 14 doses. enoxaparin 2021-05 Yes 40mg QD Inject [address] (LOVENOX) 0-25 [facility] 40 mg/0.4 15:17: subcutaneo Me dical mL Syrg 26 [facility] Center daily. enoxaparin 2021-05 Yes 40mg QD Inject [address] (LOVENOX) 0-25 mg [facility] 40 mg/0.4 15:17: subcutaneo Me dical mL Syrg 26 [facility] Center daily. enoxaparin 2021-05 Yes 40mg QD Inject [address] (LOVENOX) 0-25 mg [facility] 40 mg/0.4 15:17: subcutaneo Me dical mL Syrg 26 [facility] Center daily. fluconazole 2021-05- Yes 400mg QD [...] mouth daily for 26 days. fluconazole 2021-05- No 400mg QD Take [address] [...] Center mouth daily for 14 days. predniSONE 2021-05 No 7.5mg QD Take [address] [facility] [address] [...] Center mouth daily for 5 days. predniSONE 2021-05 No 7.5mg QD Take [address] (DELTASONE) 0-25 10-24 tablets Luke s 2.5 MG 00:00: 00:00 (7.5 mg Medical tablet 00 :00 total) by Center mouth daily for 5 days. predniSONE 2021-05 No 7.5mg QD Take [address] [...] mouth Medical tablet 30 :00 nightly. Center risperiDONE 2021-05- No .5mg QD Take 0.[address] (RisperDAL) 0-24 10-24 mg by [facility] 0.5 MG 12:03: 00:00 mouth Medical tablet 30 :00 daily. [place] metFORMIN 2021-05- No 500mg Take [address] (GLUCOPHAGE 0-24 10-24 mg by [facility] ) 500 MG 12:03: 00:00 mouth 2 Medic al tablet 30 :00 (two) Center times daily with breakfast and dinner. traZODone 2021-05- No 100mg QD Take [address] (DESYREL) 0-24 10-24 mg by [facility] 100 MG 12:03: 00:00 mouth Medical tablet 30 :00 nightly. [place] risperiDONE 2021-05 No .5mg QD Take 0.[address] (RisperDAL) 0-24 10-24 mg by [facility] 0.5 MG 12:03: 00:00 mouth Medical tablet 30 :00 daily. [place] metFORMIN 2021-05- No 500mg Take [address] (GLUCOPHAGE 0-24 10-24 mg by [facility] ) 500 MG 12:03: 00:00 mouth 2 Medic al tablet 30 :00 (two) Center times daily with breakfast and dinner. traZODone 2021-05 No 100mg QD Take [address] (DESYREL) 0-24 10-24 mg by [facility] 100 MG 12:03: 00:00 mouth Medical tablet 30 :00 nightly. [place] HYDROcodone 2021-05 Yes 1{tbl} Take 1 CH [...] times daily for 27 days. metroNIDAZO 2021-05- No 500mg Take [address] LE (FLAGYL) 0-24 11-20 tablet [facility] 500 MG 00:00: 23:59 (500 mg Medical tablet 00 :00 total) by Center mouth every 8 (eight) hours for 27 days. cefdinir 2021-05- No 300mg Q.5D Take 1 [facility] (OMNICEF) 0-24 11-20 capsule [facility] 300 MG 00:00: 23:59 (300 mg Medical capsule 00 :00 total) by Center mouth 2 (two) times daily for 27 days. gabapentin 2021-05- Yes 400mg Q.[id number] Take [address] (NEURONTIN) 0-24 - [id number] capsule [facility] 400 MG 00:00: 23:59 3D (400 mg Medical capsule 00 :00 total) by Center mouth 3 (three) times daily for 5 days. morphine 2021-05- Yes 30mg Take [address] [facility] (MS CONTIN) 003-17 tablet (30 L ukes 30 MG 12 hr 00:00: 23:59 mg total) Medical tablet 00 :00 by mouth Center every 12 (twelve) hours for 5 days. Max Daily Amount: 60 mg metoprolol 2021-05- Yes 25mg Q.5D Take [address] tartrate 0-12 03- tablet (25 Luke s (LOPRESSOR) 00:00: 23:59 [...] 40mg QD Take [address] [facility] e 0-24 - tablet (40 [facility] (PROTONIX) 00:00: 23:59 mg total) M edical 40 MG 00 :00 by mouth Center tablet daily for 5 days. risperiDONE 2021-05- Yes .5mg QD Take [address] (RisperDAL) 0-24 - tablet [facility] 0.5 MG 00:00: 23:59 (0.5 [...] for 5 days. gabapentin 2021-05- Yes 400mg Q.[id number] Take [address] (NEURONTIN) 003-17 [id number] capsule [facility] 400 MG 00:00: 23:59 3D (400 mg Medical capsule 00 :00 total) by Center mouth 3 (three) times daily for 5 days. morphine 2021-05- Yes 30mg Take [address] [facility] (MS CONTIN) 03-17 tablet (30 L ukes 30 MG 12 hr 00:00: 23:59 mg total) Medical tablet 00 :00 by mouth Center every 12 (twelve) hours for 5 days. Max Daily Amount: 60 mg metoprolol 2021-05- Yes 25mg Q.5D Take [address] tartrate 003-17 tablet (25 Luke s (LOPRESSOR) 00:00: 23:59 mg total) Medical 25 MG 00 :00 by mouth 2 Center tablet (two) times daily for 5 days. hydrOXYchlo 2021-05- Yes 200mg Q.5D Take [address] roQUINE 003-17 tablet [facility] (PLAQUENIL) 00:00: 23:59 (200 mg [...] .5mg QD Take [address] (RisperDAL) 0-24 - tablet [facility] 0.5 MG 00:00: 23:59 (0.5 mg Medical tablet 00 :00 total) by Center mouth daily for 5 days. sertraline 2021-05- Yes 50mg QD Take [address] (ZOLOFT) 50 0-24 - tablet (50 L ukes MG tablet 00:00: 23:59 mg total) Me dical 00 :00 by mouth Center daily for 5 days. traZODone 2021-05- Yes 100mg QD Take [address] [facility] (DESYREL) 0-24 - tablet [facility] 100 MG 00:00: 23:59 (100 mg Medical tablet 00 :00 total) by Center mouth nightly for 5 days. gabapentin 2021-05- No 400mg Q.[id number] Take [address] [facility] (NEURONTIN) 0-24 - [id number] capsule [facility] 400 MG 00:00: 23:59 3D (400 mg Medical capsule 00 :00 total) by Center mouth 3 (three) times daily for 5 days. morphine 2021-05- No 30mg Take [address] [facility] (MS CONTIN) 0-24 - tablet (30 [facility] 30 MG 12 hr 00:00: 23:59 mg total) Medical tablet 00 :00 by mouth Center every 12 (twelve) hours for 5 days. Max Daily Amount: 60 mg metoprolol 2021-05- No 25mg Q.5D Take [address] [facility] tartrate 0-24 - tablet (25 [facility] (LOPRESSOR) 00:00: 23:59 mg total) Medical 25 MG 00 :00 by mouth 2 Center tablet (two) times daily for 5 days. hydrOXYchlo 2021-05- No 200mg Q.5D Take [address] [facility] [address] [facility] roQUINE 0-24 - tablet [facility] (PLAQUENIL) 00:00: 23:59 (200 mg Me dical 200 mg 00 :00 total) by Center tablet mouth 2 (two) times daily for 5 days. pantoprazol 2021-05- No 40mg QD Take [address] [facility] e 0-24 - tablet (40 [facility] (PROTONIX) 00:00: 23:59 mg total) M edical 40 MG 00 :00 by mouth Center tablet daily for 5 days. risperiDONE 2021-05 No .5mg QD Take [address] [facility] (RisperDAL) 03-17 tablet [facility] 0.5 MG 00:00: 23:59 (0.5 mg Medical tablet 00 :00 total) by Center mouth daily for 5 days. sertraline 2021-05- No 50mg QD Take [address] [facility] (ZOLOFT) 50 03-17 tablet (50 [facility] MG tablet 00:00: 23:59 mg total) Me dical 00 :00 by mouth Center daily for 5 days. traZODone 2021-05- No 100mg QD Take [address] [facility] (DESYREL) [...] 7.5mg QD Take [address] [facility] (DELTASONE) 02-12- tablets [facility] 2.5 MG 00:00: 23:59 (7.5 mg Medical tablet 00 :00 total) by Center mouth daily for 10 days. predniSONE 2021- No 7.5mg QD Take [address] [facility] (DELTASONE) 02-12- tablets [facility] 2.5 MG 00:00: 23:59 [...] QD Take [address] [facility] [address] [facility] (DIFLUCAN) 9-26 10-03 tablet [facility] 200 MG 00:00: 23:59 (200 mg Medical tablet 00 :00 total) by Center mouth daily for 7 days. lidocaine 2021- No 1{patch Q24H Place [address] [facility] (LIDODERM) 9-25 10-25 } patch onto Jessica kes 5 % patch 00:00: 23:59 the skin Med ical 00 :00 daily for Center 30 days Remove & Discard patch within 12 hours or as directed by MD. lidocaine 2021-2021- No 1{patch Q24H Place [address] [facility] (LIDODERM) 9-25 10-25 } patch onto Jessica kes 5 % patch 00:00: 23:59 the skin Med ical 00 :00 daily for Center 30 days Remove & Discard patch within 12 hours or as directed by MD. lidocaine 2021- No 1{patch Q24H Place [address] [facility] (LIDODERM) 9-25 10-25 } patch onto Jessica kes 5 % patch 00:00: 23:59 the skin Med ical 00 :00 daily for Center 30 days Remove & Discard patch within 12 hours or as directed by MD. ciprofloxac 2021- No 500mg Take 1 [facility] [...] Center mouth every 8 (eight) hours. insulin 2022- No 0U Inject 0-[address] [facility] lispro 9-25 10-24 Units [facility] (HumaLOG) 00:00: 00:00 subcutaneo M edical 100 unit/mL 00 :00 usly 3 Center injection (three) times daily before meals. mycophenola 2021-0 2- No 250mg Q.5D Take [address] [facility] [address] [facility] te 9-25 10-24 capsule [facility] (CELLCEPT) 00:00: 00:00 (250 mg Med ical 250 mg 00 :00 total) by Center capsule mouth 2 (two) times daily. ciprofloxac 2021-0 2021- No 500mg Take 1 [facility] [...] capsule mouth 2 (two) times daily. ciprofloxac 2021-0 2022- No 500mg Take [address] [facility] [...] times daily for 10 days. traMADoL 2021-0 2021- No 100mg Q.25D Take 100 [facility] [...] times daily for 10 days. traMADoL 2021-0 2- No 100mg Q.25D Take [address] [facility] 100 mg Tab 9-25 10-05 mg by [facility] 00:00: 23:59 mouth 4 Medical 00 :00 (four) Center times daily for 10 days. Max Daily Amount: 400 mg methocarbam 2021-0 2- No 500mg Q.25D Take [address] [facility] [address] [facility] oL 9-25 10-05 tablet [facility] (ROBAXIN) 00:00: 23:59 (500 mg Medi doreen 500 MG 00 :00 total) by Center tablet mouth 4 (four) times daily for 10 days. polyethylen 2021-0 2022- No 17g Q.5D Take [address] [facility] e glycol -11 02-28 by mouth 2 [facility] (GLYCOLAX) 00:00: 23:59 (two) Medic al 17 gram 00 :00 times Center packet daily for 3 days. polyethylen 2021-0 2022- No 17g Q.5D Take [address] [facility] e glycol 9- 09-28 by mouth 2 [facility] (GLYCOLAX) 00:00: 23:59 (two) Medic al 17 gram 00 :00 times Center packet daily for 3 days. polyethylen 2-0 2022- No 17g Q.5D Take [address] [facility] e glycol 9- 09-28 by mouth 2 [facility] (GLYCOLAX) 00:00: 23:59 (two) Medic al 17 gram 00 :00 times Center packet daily for 3 days. mycophenola 2021-0 2022- No 500mg Q.5D Take [address] [facility] [address] [facility] te 8-17 09-25 tablet [facility] (CELLCEPT) 00:00: 00:00 (500 mg Med ical 500 mg 00 :00 total) by Center tablet mouth 2 (two) times daily for 30 days. mycophenola 2-0 2022- No 500mg Q.5D Take [address] [facility] [address] [facility] 8-17 09-25 tablet [facility] (CELLCEPT) 00:00: 00:00 (500 mg Med ical 500 mg 00 :00 total) by Center tablet mouth 2 (two) times daily for 30 days. mycophenola 2021-2021- No 500mg Q.5D Take [address] [facility] [address] [facility] te 01-03-25 tablet [facility] (CELLCEPT) 00:00: 00:00 (500 mg Med ical 500 mg 00 :00 total) by Center tablet mouth 2 (two) times daily for 30 days. mycophenola 2021- No 500mg Q.5D Take [address] [facility] [address] [facility] te 01-03- tablet [facility] (CELLCEPT) 00:00: 23:59 (500 mg [...] 2021- No Take [address] [facility] (DELTASONE) 12-26-12 tablets [...] 7 NON-DEHP 50 days. ML IVPB ertapenem 2-0 2022- No 1g Q24H Inject [address] [facility] (INVanz) 1 8- 08-16 intravenou Jessica kes g in NS 100 00:00: 23:59 sly daily Medical mL (V2B) 00 :00 for 7 Center IVPB days. mICAFUNGin 2-0 2022- No 100mg Q24H Inject [address] [facility] 100 mg in 8- 08-16 mg [facility] NS 0.9% 100 00:00: 23:59 intravenou Medical mL (V2B) 00 :00 sly daily Center IVPB for 7 days. DAPTOmycin 2-0 2022- No 800mg Q24H Inject [address] [facility] (CUBICIN) 8- 08-16 mg [facility] in sodium 00:00: 23:59 intravenou M edical chloride 00 :00 sly daily Center (NS) for 7 NON-DEHP 50 days. ML IVPB ertapenem 2021-0 2022- No 1g Q24H Inject [address] [facility] (INVanz) 1 8- 08-16 intravenou Jessica kes g in NS 100 00:00: 23:59 sly daily Medical mL (V2B) 00 :00 for 7 Center IVPB days. mICAFUNGin 2-0 2- No 100mg Q24H Inject [address] [facility] 100 mg in 8- 08-16 mg [facility] NS 0.9% 100 00:00: 23:59 intravenou Medical mL (V2B) 00 :00 sly daily Center IVPB for 7 days. DAPTOmycin 2-0 2022- No 800mg Q24H Inject [address] [facility] (CUBICIN) 8- 08-16 mg [facility] in sodium 00:00: 23:59 intravenou M edical chloride 00 :00 sly daily Center (NS) for 7 NON-DEHP 50 days. ML IVPB ertapenem 2022-0 2022- No 1g Q24H Inject [address] [facility] (INVanz) 1 8- 08-16 intravenou Jessica kes g in NS 100 00:00: 23:59 sly daily Medical mL (V2B) 00 :00 for 7 Center IVPB days. mICAFUNGin 2022-0 2022- No 100mg Q24H Inject 100 [facility] [...] daily Center IVPB for 7 days. predniSONE 2021-2021- No 25mg QD Take [address] [facility] (DELTASONE) 12-26-08 tablets [facility] 5 MG tablet 00:00: 00:00 (25 mg Med ical 00 :00 total) by Center mouth daily for 30 days. predniSONE 2021-2021- No 25mg QD Take [address] [facility] (DELTASONE) 12-26-08 tablets [facility] 5 MG tablet 00:00: 00:00 (25 mg Med ical 00 :00 total) by Center mouth daily for 30 days. predniSONE 2021-2021- No 25mg QD Take [address] [facility] (DELTASONE) 12-26-08 tablets [facility] 5 MG tablet 00:00: 00:00 (25 mg Med ical 00 :00 total) by Center mouth daily for 30 days. predniSONE 2021-2021- No 25mg QD Take [address] [facility] (DELTASONE) 12-26-08 tablets [facility] 5 MG tablet 00:00: 00:00 (25 mg Med ical 00 :00 total) by Center mouth daily for 30 days. risperiDONE Yes .5mg QD Take 0.[address] [facility] [address] [facility] (RisperDAL) 8-08 mg by [facility] 0.5 MG 23:36: mouth Medical tablet 04 daily. [place] metFORMIN Yes 500mg Take [address] [facility] (GLUCOPHAGE 8-08 mg by [facility] ) 500 MG 23:36: mouth 2 Medica l tablet 04 (two) Center times daily with breakfast and dinner. traZODone Yes 100mg QD Take [address] [facility] (DESYREL) 8-08 mg by [facility] 100 MG 23:36: mouth Medical tablet 04 nightly. [place] enoxaparin Yes 40mg QD Inject [address] [facility] [address] [facility] (LOVENOX) 8-08 mg [facility] 40 mg/0.4 23:36: subcutaneo Me dical mL Syrg 04 usly Center daily. predniSONE 2021-0 2- No 50mg QD Take [address] [facility] (DELTASONE) 12-25-08 by mouth Jody es 50 MG 16:30: 00:00 daily. Medical tablet 18 :00 [place] predniSONE 0 2021- No 50mg QD Take [address] [facility] (DELTASONE) 12-25-08 by mouth Jody es 50 MG 16:30: 00:00 daily. Medical tablet 18 :00 [place] predniSONE 2021-0 2021- No 50mg QD Take [address] [facility] (DELTASONE) 12-25-08 by mouth Jody es 50 MG 16:30: 00:00 daily. Medical tablet 18 :00 [place] predniSONE 2021-0 2- No 50mg QD Take [address] [facility] (DELTASONE) 12-25-08 by mouth Jody es 50 MG 16:30: 00:00 daily. Medical tablet 18 :00 [place] HYDROcodone Yes 1{tbl} Take [address] [facility] -acetaminop 8-08 tablet by Jody kimberly mehta (NORCO 00:00: mouth Medica l 5-325) 00 every 6 Center 5-325 mg (six) per tablet hours as needed for Pain for up to 10 doses. Max Daily Amount: 4 tablets HYDROcodone 2021-0 2021- No 1{tbl} Take [address] [facility] -acetaminop 8-08 10-24 tablet by Jessica kes hen (NORCO 00:00: 00:00 mouth Medic al 5-325) 00 :00 every 6 Center 5-325 mg (six) per tablet hours as needed for Pain for up to 10 doses. Max Daily Amount: 4 tablets HYDROcodone 2021-0 2021- No 1{tbl} Take [address] [facility] -acetaminop 8-08 10-24 tablet by Jessica mehta (NORCO 00:00: 00:00 mouth Medic al 5-325) 00 :00 every 6 Center 5-325 mg (six) per tablet hours as needed for Pain for up to 10 doses. Max Daily Amount: 4 tablets HYDROcodone 2021-0 2021- No 1{tbl} Take [address] -acetaminop 8-08 10-24 tablet by Jessica mehta (NORCO 00:00: 00:00 mouth Medic al 5-325) 00 :00 every 6 Center 5-325 mg (six) per tablet hours as needed for Pain for up to 10 doses. Max Daily Amount: 4 tablets sulfamethox Yes 160mg{t Q.[id number] Take [address] [facility] azole-trime 5-25 rimetho [id number] tablet [facility] thoprim 00:00: prim} 3W (160 mg of Med ical (BACTRIM 00 trimethopr Cente r DS) 800-160 im total) mg per by mouth 3 tablet (three) times a week SAT/SAT/ I. sulfamethox 2021-2021- No 160mg{t Q.[id number] Take [address] [facility] azole-trime 5-25 09-25 rimetho [id number] tablet [facility] thoprim 00:00: 00:00 prim} 3W (160 mg of Me dical (BACTRIM 00 :00 trimethopr Cente r DS) 800-160 im total) mg per by mouth 3 tablet (three) times a week SAT/SAT/ I. sulfamethox 2021-0 2021- No 160mg{t Q.[id number] Take [address] [facility] azole-trime 5-25 09-25 rimetho [id number] tablet [facility] thoprim 00:00: 00:00 prim} 3W (160 mg of Me dical (BACTRIM 00 :00 trimethopr Cente r DS) 800-160 im total) mg per by mouth 3 tablet (three) times a week I. sulfamethox 2021- No 160mg{t Q.[id number] Take [address] [facility] azole-trime 10-11 rimetho [id number] tablet [facility] thoprim 00:00: 00:00 prim} 3W [...] tablet mouth daily. metroNIDAZO 2021- No 500mg Q.[id number] Take [address] [facility] (FLAGYL) 10-10 [id number] tablet [facility] 500 MG 00:00: 00:00 3D (500 mg Medical tablet 00 :00 total) by Center mouth 3 (three) times daily. levoFLOXaci 2021- No 750mg QD Take [address] [facility] [address] [facility] n 10-10 tablet [facility] (LEVAQUIN) 00:00: 00:00 (750 mg Med ical 750 MG 00 :00 total) by Center tablet mouth daily. metroNIDAZO 2021- No 500mg Q.01641958 Take [address] [facility] (FLAGYL) 10-10 [id number] tablet [facility] 500 MG 00:00: 00:00 3D (500 mg Medical tablet 00 :00 total) by Center mouth 3 (three) times daily. levoFLOXaci 2021-2021- No 750mg QD Take [address] [facility] [address] [facility] n 10-10 tablet [facility] (LEVAQUIN) 00:00: 00:00 (750 mg Med ical 750 MG 00 :00 total) by Center tablet mouth daily. metroNIDAZO 2021- No 500mg Q.[id number] Take [address] [facility] (FLAGYL) 10-10 [id number] tablet [facility] 500 MG 00:00: 00:00 3D (500 mg Medical tablet 00 :00 total) by Center mouth 3 (three) times daily. levoFLOXaci 2021- No 750mg QD Take [address] [facility] [address] [facility] n 10-10 tablet [facility] (LEVAQUIN) 00:00: 00:00 (750 mg Med ical 750 MG 00 :00 total) by Center tablet mouth daily. metroNIDAZO 2021- No 500mg Q.[id number] Take [address] [facility] (FLAGYL) 10-10 [id number] tablet [facility] 500 MG 00:00: 00:00 3D (500 mg Medical tablet 00 :00 total) by Center mouth 3 (three) times daily. predniSONE 2021-2021- No 50mg QD Take [address] [facility] (DELTASONE) 10-10 tablet (50 [facility] 50 MG 00:00: 23:59 mg total) Medica l tablet 00 :00 by mouth Center daily for 30 days. predniSONE 2021-2021- No 50mg QD Take [address] [facility] (DELTASONE) 10-10 tablet (50 [facility] 50 MG 00:00: 23:59 mg total) Medica l tablet 00 :00 by mouth Center daily for 30 days. predniSONE 2021-2021- No 50mg QD Take [address] [facility] (DELTASONE) 10-10 tablet (50 [facility] 50 MG 00:00: 23:59 mg total) Medica l tablet 00 :00 by mouth Center daily for 30 days. predniSONE 2021-2021- No 50mg QD Take [address] [facility] [...] .5mg Take [facility] (ATIVAN[facility] 10-10-03 [facility] 0.5 MG 00:00: 23:59 (0.5 [...] Max Daily Amount: 90 mg methocarbam 2022-0 2022- No 1000mg Q.25D Take [...] days. Max Daily Amount: 1 mg morphine 2-0 2021- No 15mg Take [address] [facility] [...] .5mg Take [facility] (ATIVAN) 10-10-03 [facility] 0.5 MG 00:00: 23:59 (0.5 [...] Amount: 90 mg sulfamethox 2021- No 160mg{t Q.[id number] Take [address] [facility] azole-trime 09-25 rimetho [id number] tablet [facility] thoprim 00:00: 00:00 prim} 3W (160 mg of Me dical (BACTRIM 00 :00 trimethopr Cente r DS) 800-160 im total) mg per by mouth 3 tablet (three) times a week MON/SAT/ I. sulfamethox 2021-2021- No 160mg{t Q.[id number] Take [address] [facility] azole-trime 09-25 rimetho [id number] tablet [facility] thoprim 00:00: 00:00 prim} 3W (160 mg of Me dical (BACTRIM 00 :00 trimethopr Cente r DS) 800-160 im total) mg per by mouth 3 tablet (three) times a week I. sulfamethox 2021-0 2021- No 160mg{t Q.[id number] Take [address] [facility] azole-trime 5-24 rimetho [id number] tablet [facility] thoprim 00:00: 00:00 prim} 3W (160 mg of Me dical (BACTRIM 00 :00 trimethopr Cente r DS) 800-160 im total) mg per by mouth 3 tablet (three) times a week I. sulfamethox 2021-0 2021- No 160mg{t Q.[id number] Take [address] [facility] azole-trime -01 22-24 rimetho [id number] tablet [facility] thoprim 00:00: 00:00 prim} 3W (160 mg of Me dical (BACTRIM 00 :00 trimethopr Cente r DS) 800-160 im total) mg per by mouth 3 tablet (three) times a week I. pantoprazol 2021-0 Yes 40mg QD Take [address] [facility] e 5-07 tablet (40 [facility] (PROTONIX) 00:00: mg total) Me dical 40 MG 00 by mouth Center tablet daily. sertraline 2021-2022- No 50mg QD Take [address] [facility] (ZOLOFT) 50 5- 05-07 tablet (50 L [facility] MG tablet 00:00: 23:59 mg total) Me dical 00 :00 by mouth Center daily. pantoprazol 2021-2021- No 40mg QD Take [address] [facility] e 5-07 10-24 tablet (40 [facility] (PROTONIX) 00:00: 00:00 mg total) M edical 40 MG 00 :00 by mouth Center tablet daily. sertraline 2021-0 2021- No 50mg QD Take [address] [facility] (ZOLOFT) 50 5-07 10-24 tablet (50 L [facility] MG tablet 00:00: 00:00 mg total) Me dical 00 :00 by mouth Center daily. pantoprazol 2021-0 2- No 40mg QD Take [address] [facility] e 5-07 10-24 tablet (40 [facility] (PROTONIX) 00:00: 00:00 mg total) M edical 40 MG 00 :00 by mouth Center tablet daily. sertraline 2021-2021- No 50mg QD Take [address] [facility] (ZOLOFT) 50 5- 10-24 tablet (50 L [facility] MG tablet 00:00: 00:00 mg total) Me dical 00 :00 by mouth Center daily. pantoprazol 2021-2021- No 40mg QD Take [address] [facility] e 5- 10-24 tablet (40 [facility] (PROTONIX) 00:00: 00:00 mg total) M edical 40 MG 00 :00 by mouth Center tablet daily. sertraline 2021-2021- No 50mg QD Take [address] [facility] (ZOLOFT) 50 5- 10-24 tablet (50 L [facility] MG tablet 00:00: 00:00 mg total) Me dical 00 :00 by mouth Center daily. predniSONE 2021-2021- No 80mg QD Take [address] [facility] (DELTASONE) 09-23-24 tablets [facility] 20 MG 00:00: 00:00 (80 mg Medical tablet 00 :00 total) by Center mouth daily for 10 days. furosemide 2021-0 2021- No 40mg QD Take [address] [facility] (LASIX) 40 09-23-24 tablet (40 Jessica kes MG tablet 00:00: 00:00 mg total) Me dical 00 :00 by mouth Center daily. insulin NPH 2021- No Use as [facility] (HumuLIN N) 09-23- directed. Jessica kes 100 unit/mL 00:00: 00:00 Medic al injection 00 :00 Center predniSONE 2021-0 2021- No 80mg QD Take [address] [facility] (DELTASONE) 5 05-24 tablets [facility] 20 MG 00:00: [...] No Use as [facility] (HumuLIN N) 09-23-24 directed. Jessica kes 100 unit/mL 00:00: 00:00 Medic al injection 00 :00 Center predniSONE 2021-0 2021- No 80mg QD Take [address] [facility] (DELTASONE) 09-23-24 tablets [facility] 20 MG 00:00: 00:00 (80 mg Medical tablet 00 :00 total) by Center mouth daily for 10 days. furosemide 2021-2021- No 40mg QD Take [address] [facility] (LASIX) 40 09-23-24 tablet (40 Jessica kes MG tablet 00:00: 00:00 mg total) Me dical 00 :00 by mouth Center daily. insulin NPH 2021-2021- No Use as [facility] (HumuLIN N) 09-23 directed. Jessica kes 100 unit/mL 00:00: 00:00 Medic al injection 00 :00 [place] predniSONE 2021-0 2021- No 80mg QD Take [address] [facility] (DELTASONE) 09-2324 tablets [facility] 20 MG 00:00: 00:00 (80 mg Medical tablet 00 :00 total) by Center mouth daily for 10 days. furosemide 2021-2021- No 40mg QD Take [address] [facility] (LASIX) 40 09-2324 tablet (40 Jessica kes MG tablet 00:00: 00:00 mg total) Me dical 00 :00 by mouth Center daily. insulin NPH 2021- No Use as [facility] (HumuLIN N) 09-23 directed. Jessica kes 100 unit/mL 00:00: 00:00 Medic al injection 00 :00 [place] predniSONE 2021-0 2021- No 5mg QD Take [address] [facility] (DELTASONE) 09-22- by mouth Jody es 5 MG tablet 16:07: 00:00 daily. Med ical 21 :00 [place] CARVEDILOL 2021-0 2021- No Take by [facility] ORAL 09-22- mouth. [facility] 16:07: 00:00 Medical 21 :00 [place] tramadol 2021-2021- No Take by [facility] HCl 09-22- [facility]. [facility] (TRAMADOL 16:07: 00:00 Medical ORAL) 21 :00 [place] predniSONE 2021-0 2021- No 5mg QD Take [address] [facility] (DELTASONE) 09-22-06 by mouth Jody es 5 MG tablet 16:07: 00:00 daily. Med ical 21 :00 [place] CARVEDILOL 2021- No Take by [facility] ORAL 5- 05-06 mouth. [facility] 16:07: 00:00 Medical 21 :00 [place] tramadol 2021- No Take by [facility] HCl 5- 05-06 mouth. [facility] (TRAMADOL 16:07: 00:00 Medical ORAL) 21 :00 [place] predniSONE 2021- No 5mg QD Take [address] [facility] (DELTASONE) 5 05-06 by mouth Jody es 5 MG tablet 16:07: 00:00 daily. Med ical 21 :00 [place] CARVEDILOL 2021- No Take by [facility] ORAL 5- 05-06 mouth. [facility] 16:07: 00:00 Medical 21 :00 [place] tramadol 2021- No Take by [facility] HCl 5- 05-06 mouth. [facility] (TRAMADOL 16:07: 00:00 Medical ORAL) 21 :00 [place] predniSONE 2021- No 5mg QD Take [address] [facility] (DELTASONE) 09-22 05-06 by mouth Jody es 5 MG tablet 16:07: 00:00 daily. Med ical 21 :00 [place] CARVEDILOL 2021- No Take by [facility] ORAL - 05-06 mouth. [facility] 16:07: 00:00 Medical 21 :00 [place] tramadol 2021- No Take by [facility] HCl - 05-06 mouth. [facility] (TRAMADOL 16:07: 00:00 Medical ORAL) 21 :00 [place] calcium 2022- No 2{tbl} Q.[id number] Take [address] [facility] carbonate-v 5- 05-06 [id number] tablets by [facility] itamin D3 00:00: 23:59 3D mouth 3 Medi doreen (OSCAL-D) 00 :00 (three) [place] 500 times mg(1,250mg) daily. -200 unit per tablet cholestyram 2022- No 1{packe Q.5D Take [address] [facility] ine 5-06 05-06 t} packet by [facility]ad (QUESTRAN) 00:00: 23:59 mouth 2 Med ical 4 gram PwPk 00 :00 (two) Center packet times daily. clotrimazol 2022- No Q.5D Apply [facility] e 09-22-06 topically [facility] (LOTRIMIN) 00:00: 23:59 2 (two) Med ical 1 % cream 00 :00 times Center daily. gabapentin 2022- No 400mg Q.[id number] Take [address] [facility] (NEURONTIN) 09-22- [id number] capsule [facility] 400 MG 00:00: 23:59 3D [...] tablet (two) times daily. pancrelipas 2022- No [id number]{ Take [address] [facility] e, 09-22- lipase} capsules [facility] Lip-Prot-Am 00:00: 23:59 (72,000 Me dical yl, (CREON) 00 :00 units of Cent er 24,000-76,0 lipase 00 -120,000 total) by unit CpDR mouth 3 capsule (three) times daily with meals. calcium 2022- No 2{tbl} Q.[id number] Take [address] [facility] carbonate-v 09-22- [id number] tablets by [facility] itamin D3 00:00: 23:59 3D mouth 3 Medi doreen (OSCAL-D) 00 :00 (three) Center 500 times mg(1,250mg) daily. -200 unit per tablet pancrelipas 2022- No [id number]{ Take [address] [facility] e, 09-22 05-06 lipase} capsules [facility] Lip-Prot-Am 00:00: 23:59 (72,000 Me dical yl, (CREON) 00 :00 units of Cent er 24,000-76,0 lipase 00 -120,000 total) by unit CpDR mouth 3 capsule (three) times daily with meals. calcium 2022- No 2{tbl} Q.[id number] Take [address] [facility] carbonate-v 09-22- [id number] tablets by [facility] itamin D3 00:00: 23:59 3D mouth 3 Medi doreen (OSCAL-D) 00 :00 (three) Center 500 times mg(1,250mg) daily. -200 unit per tablet pancrelipas 2022- No [id number]{ Take [address] [facility] e, 09-22 05-06 lipase} capsules [facility] Lip-Prot-Am 00:00: 23:59 (72,000 Me dical yl, (CREON) 00 :00 units of Cent er 24,000-76,0 lipase 00 -120,000 total) by unit CpDR mouth 3 capsule (three) times daily with meals. pancrelipas 2022- No [id number]{ Take [address] [facility] e, 09-22 05-06 lipase} capsules [facility] Lip-Prot-Am 00:00: 23:59 (72,000 Me dical yl, (CREON) 00 :00 units of Cent er 24,000-76,0 lipase 00 -120,000 total) by unit CpDR mouth 3 capsule (three) times daily with meals. calcium 2022- No 2{tbl} Q.[id number] Take [address] [facility] carbonate-v 09-22- [id number] tablets by [facility] itamin D3 00:00: 23:59 3D mouth 3 Medi doreen (OSCAL-D) 00 :00 (three) Center 500 times mg(1,250mg) daily. -200 unit per tablet acetaminoph 2022- No 650mg Take [address] [facility] [address] [facility] en 09-22- tablets [facility] (TYLENOL) 00:00: 23:59 (650 mg [...] needed for up to 360 days. acetaminoph 2021-0 3- No 650mg Take [address] [facility] [address] [facility] en 09-22 05-01 tablets [facility] (TYLENOL) 00:00: 23:59 (650 mg Medi doreen 325 MG 00 :00 total) by Center tablet mouth every 6 (six) hours as needed for up to 360 days. acetaminoph 2021-0 2022- No 650mg Take [address] [facility] [address] [facility] en 09-22 05-01 tablets [facility] (TYLENOL) 00:00: 23:59 (650 mg Medi doreen 325 MG 00 :00 total) by Center tablet mouth every 6 (six) hours as needed for up to 360 days. gabapentin 2021-0 2022- No 400mg Q.[id number] Take [address] [facility] (NEURONTIN) 09-22- [id number] capsule [facility] 400 MG 00:00: 00:00 3D (400 mg Medical capsule 00 :00 total) by Center mouth 3 (three) times daily. hydrOXYchlo 2021-0 2021- No 200mg Q.5D Take [address] [facility] [address] [facility] roQUINE 09-22-24 tablet [facility] (PLAQUENIL) 00:00: 00:00 (200 mg Me dical 200 mg 00 :00 total) by Center tablet mouth 2 (two) times daily. metoprolol 2021-0 2021- No 25mg Q.5D Take [address] [facility] tartrate 09-2224 tablet (25 [facility] (LOPRESSOR) 00:00: 00:00 mg total) Medical 25 MG 00 :00 by mouth 2 Center tablet (two) times daily. gabapentin 2021-0 2- No 400mg Q.[id number] Take [address] [facility] (NEURONTIN) 09-22- [id number] capsule [facility] 400 MG 00:00: 00:00 3D (400 mg Medical capsule 00 :00 total) by Center mouth 3 (three) times daily. hydrOXYchlo 2021-0 2022- No 200mg Q.5D Take [address] [facility] [address] [facility] roQUINE 09-22 10-24 tablet [facility] (PLAQUENIL) 00:00: 00:00 (200 mg Me dical 200 mg 00 :00 total) by Center tablet mouth 2 (two) times daily. metoprolol 2021- No 25mg Q.5D Take [address] [facility] tartrate 09-2224 tablet (25 [facility] (LOPRESSOR) 00:00: 00:00 mg total) Medical 25 MG 00 :00 by mouth 2 Center tablet (two) times daily. gabapentin 2021- No 400mg Q.[id number] Take [address] [facility] (NEURONTIN) 09-22 [id number] capsule [facility] 400 MG 00:00: 00:00 3D (400 mg Medical capsule 00 :00 total) by Center mouth 3 (three) times daily. hydrOXYchlo 2021- No 200mg Q.5D Take [address] [facility] [address] [facility] roQUINE 09-22 tablet [facility] (PLAQUENIL) 00:00: 00:00 (200 mg Me dical 200 mg 00 :00 total) by Center tablet mouth 2 (two) times daily. metoprolol 2021-0 2021- No 25mg Q.5D Take [address] [facility] tartrate 09-2224 tablet (25 [facility] (LOPRESSOR) 00:00: 00:00 mg total) Medical 25 MG 00 :00 by mouth 2 Center tablet (two) times daily. cholestyram 2021- No 1{packe Q.5D Take [address] [facility] ine - 09-25 t} packet by [facility] (QUESTRAN) 00:00: 00:00 mouth 2 Med ical 4 gram PwPk 00 :00 (two) Center packet times daily. clotrimazol 2021-2021- No Q.5D Apply [facility] e 09-22 09-25 [facility]ically [facility] (LOTRIMIN) 00:00: 00:00 2 (two) Med ical 1 % cream 00 :00 times Center daily. cholestyram 2021- No 1{packe Q.5D Take [address] [facility] in[facility] 5- 09-25 t} packet by [facility] (QUESTRAN) 00:00: 00:00 mouth 2 Med ical 4 gram PwPk 00 :00 (two) Center packet times daily. clotrimazol 2021-0 2022- No Q.5D Apply [facility] 09-22 [facility] (LOTRIMIN) 00:00: 00:00 2 (two) Med ical 1 % cream 00 :00 times Center daily. cholestyram 2021-0 2021- No 1{packe Q.5D Take [address] [facility] ine 09-22 t} packet by [facility] (QUESTRAN) 00:00: 00:00 mouth 2 Med ical 4 gram PwPk 00 :00 (two) Center packet times daily. clotrimazol 2021-0 2021- No Q.5D Apply [facility] 09-22 [facility] (LOTRIMIN) 00:00: 00:00 2 (two) Med ical 1 % cream 00 :00 times Center daily. morphine 2021-0 2021- No 15mg Take [address] [facility] (MS CONTIN) 09-22-05 tablet (15 [facility] 15 MG 12 hr 00:00: 23:59 mg total) Medical tablet 00 :00 by mouth Center every 8 (eight) hours for 30 days. Max Daily Amount: 45 mg morphine 2021-0 2021- No 15mg Take [address] [facility] (MS CONTIN) 09-22- tablet (15 [facility] 15 MG 12 hr 00:00: 23:59 mg total) Medical tablet 00 :00 by mouth Center every 8 (eight) hours for 30 days. Max Daily Amount: 45 mg morphine 2021-0 2021- No 15mg Take [address] [facility] (MS CONTIN) 09-22-05 tablet (15 L [facility] 15 MG 12 hr 00:00: 23:59 mg total) Medical tablet 00 :00 by mouth Center every 8 (eight) hours for 30 days. Max Daily Amount: 45 mg morphine 2021-0 2021- No 15mg Take [address] [facility] (MS CONTIN) 09-22-05 tablet (15 L ukes 15 MG 12 hr 00:00: 23:59 mg total) Medical tablet 00 :00 by mouth Center every 8 (eight) hours for 30 days. Max Daily Amount: 45 mg insulin NPH 2021-0 2021- No Use as [facility] (HumuLIN N) 09-22 directed. Jessica kes 100 unit/mL 00:00: 00:00 Medic al injection 00 :00 Center loperamide No 4mg [id number] Take [address] [facility] (IMODIUM) 2 09-22 [id number] [facility] capsule 00:00: 00:00 3D [...] (four) times daily for 10 days. oxyCODONE No 10mg Take 1 [facility] [...] 00:00: 00:00 Medic al injection 00 :00 [place] loperamide 2021- No 4mg [id number] Take [address] [facility] (IMODIUM) 2 09-22 [id number] [facility] capsule 00:00: 00:00 3D [...] 00 :00 Center loperamide 2021- No 4mg [id number] Take [address] [facility] (IMODIUM) 2 09-22 [id number] [facility] capsule 00:00: 00:00 3D (4 mg Medic al 00 :00 total) by Center mouth 3 (three) times daily for 10 days. LORazepam 0 2021- No .5mg Take 1 [facility] [...] tablet (four) times daily for 10 days. oxyCODONE [...] daily for 10 days. insulin NPH 2021- Use as [facility] (HumuLIN N) 09-22 directed. Jessica kes 100 unit/mL 00:00: 00:00 Medic al injection 00 :00 Center loperamide 2021- No 4mg [id number] Take [address] [facility] (IMODIUM) 2 09-22 [id number] [facility] capsule 00:00: 00:00 3D [...] days. Max Daily Amount: 1 mg methocarbam No 1000mg Q.25D Take [address] [facility] oL 09-22 tablets [facility] (ROBAXIN) 00:00: 00:00 (1,000 mg Me dical 500 MG 00 :00 total) by Center tablet mouth 4 (four) times daily for 10 days. Vital Signs Vital Name Observation Time Observation Value Comments Source Systolic blood 2022-03-18 21:00:00 139 mm[Hg] [facility] Diastolic blood 2022-03-18 21:00:00 91 [facility]Hg[facility] 2022-03-18 21:00:00 84 /min [facility] Body temperature 2022-03-18 21:00:00 37.06 [facility]ori [facility] 2022-03-18 21:00:00 18 /min [facility] Oxygen saturation in 2022-03-18 21:00:00 97 /min [facility] Arterial blood by [facility] Pulse oximetry Branch Body height 2022-03-16 07:07:00 172.7 cm [facility] Body weight 2022-03-16 07:07:00 99.791 kg [facility] BMI 2022-03-16 07:07:00 33.46 kg/m2 [facility] Systolic blood 2022-03-14 23:00:00 176 mm[Hg] [facility] Diastolic blood 2022-03-14 23:00:00 124 mm[Hg] Unive rs[facility] Heart rate 2022-03-14 23:00:00 108 /min [facility] Oxygen saturation in 2022-03-14 23:00:00 99 /min [facility] Arterial blood by [facility] Pulse oximetry Branch Respiratory rate 2022-03-14 22:00:00 20 /min [facility] Body temperature 2022-03-14 18:22:00 37.5 Lori [facility] Body height 2022-03-14 18:22:00 172.7 cm [facility] Body weight 2022-03-14 18:22:00 99.791 kg [facility] BMI 2022-03-14 18:22:00 33.45 kg/m2 [facility] HEIGHT 2022-03-08 19:00:00 172.7 cm WEIGHT 2022-03-08 [...] kg Systolic blood 2022-03-12 11:02:00 175 mm[Hg] [facility] Diastolic blood 2022-03-12 11:02:00 120 mm[Hg] [facility] Heart rate 2022-03-12 11:02:00 75 /min [facility] Body temperature 2022-03-12 11:02:00 36.78 Lori [facility] Respiratory rate 2022-03-12 11:02:00 18 /min [facility] Oxygen saturation in 2022-03-12 11:02:00 97 /min [facility] Arterial blood by Medical Ce nter Pulse oximetry Body height 2022-03-08 19:00:00 172.7 cm [facility] Body weight 2022-03-08 19:00:00 99.428 kg [facility] BMI 2022-03-08 19:00:00 33.33 kg/m2 [facility] Systolic blood 2021-12-25 15:25:00 123 mm[Hg] [facility] Diastolic blood 2021-12-25 15:25:00 76 mm[Hg] [facility] Heart rate 2021-12-25 15:25:00 103 /min [facility] Body temperature 2021-12-25 15:25:00 36.78 Lori [facility] Respiratory rate 2021-12-25 15:25:00 18 /min [facility] Oxygen saturation in 2021-12-25 15:25:00 95 /min [facility] Arterial blood by Medical Ce nter Pulse oximetry Body height 2021-12-07 12:30:00 172.7 cm [facility] Body weight 2021-12-07 12:30:00 95.255 kg [facility] BMI 2021-12-07 12:30:00 31.93 kg/m2 [facility] Procedures Procedure Date / Time Performing Clinician Source Performed MAGNESIUM 2022-03-18 Lucia Omer [facility] ex 11:41:00 [facility] BASIC METABOLIC PANEL (NA, 2022-03-18 [facility], CL, CO2, GLUCOSE, BUN, 11:41:00 [facility] CREATININE, [place]) CBC WITH DIFF 2022-03-18 Lucia Omer [facility] ex 11:41:[address] [facility] [address] HEAD WO CONTRAST 2022-03-[facility] 13:50[facility]56 [facility] MAGNESIUM 2022-03-17 Darrel [facility] xas 10:39:00 [facility] HEPATIC FUNCTION PANEL 2022-03-17 [facility] ([id number]) (ALB,T.PRO,BILI 10:39:00 [facility] T,BU/BC,ALT,AST,ALK PHOS) BASIC METABOLIC PANEL (NA, 2022-03-17 Darrel [facility] K, CL, CO2, GLUCOSE, BUN, 10:39:00 [facility] CREATININE, CA) CBC WITH DIFF 2022-03-17 [facility] 10:39:00 [facility] PROTHROMBIN TIME / INR 2022-03-16 Cade Lacy [facility] 22:57:00 Medical Branch LIPASE 2022-03-16 [facility]e [facility] xas 11:00:00 [facility] MAGNESIUM 2022-03-16 [facility] xa 11:00:00 [facility] BASIC METABOLIC PANEL (NA, 2022-03-16 Ree [facility] K, CL, CO2, GLUCOSE, BUN, 11:00:00 [facility] CREATININE, [place]) CBC WITH DIFF 2022-03-16 [facility] xas 11:00:00 [facility] MRSA / MSSA SCREEN BY PCR, 2022-03-16 [facility] NARES 07:32:00 [facility] HOSPITAL ADMISSION 2022-03-16 Doctor Unassigned, [facility] 05:01:00 [facility] [place] LACTIC ACID WHOLE BLOOD 2022-03-14 [facility] 22:10:00 Medical Branch URINALYSIS 2022-03-14 [facility] xa 20:43:[address] [place] [address] ABDOMEN PELVIS W CONTRAST 2022-03-14 [facility] [address] 20:28:55 [facility] LACTIC ACID WHOLE BLOOD 2022-03-14 [facility] 19:56:00 Medical Branch LIPASE 2022-03-14 [facility] 19:55:00 Medical [facility] COMP. METABOLIC PANEL 2022-03-14 [facility] ([id number]) 19:55:00 [facility] CBC WITH DIFF 2022-03-14 [facility] 19:55:00 Medical Branch NOTICE OF PRIVACY PRACTICES 2022-03-14 Doctor Unassigned, [facility] 18:09:38 [facility] CBC (HEMOGRAM ONLY) 2022-03-12 [address] Hern[facility] [facility] 05:05:00 [facility] BASIC METABOLIC PANEL 2022-03-12 Alex Hernández [facility] 05:05:[address] [facility] [address] ABDOMEN/PELVIS WITH IV 2022-03-11 Alex Hern[facility]dez [facility] CONTRAST 00:26:00 [facility] Center CBC W/PLT COUNT & AUTO 2022-03-10 Evangel[facility]Silvio [facility] DIFFERENTIAL 04:22:00 [facility] BASIC METABOLIC PANEL 2022-03-10 Evangelist, Silvio Nasif [facility] 04:22:00 [facility] CBC W/PLT COUNT & AUTO 2022-03-10 Evangelist, Silvio Mccray [facility] DIFFERENTIAL 04:22:00 [facility] XR CHEST 1 VIEW PORTABLE / 2022-03-[address] [facility] BEDSIDE 15:10:[address] [facility] [address] ABDOMEN/PELVIS WITH IV 2022-03-[address] [facility] CONTRAST 08:41:00 [facility] [place] ASPIRATION OR INJECTION 2022-02-27 [facility] Wisdom [facility] 15:05:00 [facility] MR LOWER EXTREMITY JOINT 2022-02-[address] [facility] ONLY WITHOUT IV CONTRAST 14:00:00 [facility] LEFT COMPREHENSIVE METABOLIC 2022-02-24 Masood Marco Antonioanrdew [facility] PANEL 22:25:00 [facility] GI PATHOGEN PROFILE BY PCR 2022-02-24 Masood Marco Antonioandrew [facility] 15:10:00 [facility] XR HIP 2 VIEWS BILATERAL 2022-02-24 [facility]reia [facility] 08:03:00 [facility] C. DIFFICILE GDH TOXIN 2022-02-[address] [facility] 03:00:00 [facility] BLOOD CULTURE 2022-02-[address] [facility] 05:15:00 [facility] URINE CULTURE 2022-02-[address] [facility] 05:10:00 [facility] PERMANENT LAB REPORT - SCAN 2022-02-18 Provider, Default [facility] 00:00:00 Scanning [facility] Center EKG-SCANNED 2022-02-18 Provider, Default [facility] 00:00:00 [facility] COMPLEMENT COMPONENT C4 2022-02-[address] [facility] [facility] 12:36:00 [facility] DOUBLE-STRANDED DNA (DSDNA) 2022-02-[address] [facility] ANTIBODY 12:36:00 [facility] MAGNESIUM 2022-02-[address] [facility] 04:08:00 [facility] PHOSPHORUS 2022-02-11 Aribindi, Demetris [facility] 04:08:00 [facility] CBC W/PLT COUNT & AUTO 2022-02-11 Eli, Irina [facility] DIFFERENTIAL 04:08:00 [facility] BASIC METABOLIC PANEL 2022-02-11 Eli, Irina [facility] 04:08:00 [facility] CBC W/PLT COUNT & AUTO 2022-02-11 Eli, Irina [facility] DIFFERENTIAL 04:08:00 [facility] CBC W/PLT COUNT & AUTO 2022-02-10 Eli, Irina [facility] DIFFERENTIAL 05:06:00 [facility] BASIC METABOLIC PANEL 2022-02-10 Eli, Irina [facility] 05:06:00 [facility] CBC W/PLT COUNT & AUTO 2022-02-10 Eli, Irina [facility] DIFFERENTIAL 05:06:00 [facility] MAGNESIUM 2022-02-09 Aribindi, Demetris [facility] 03:57:00 [facility] PHOSPHORUS 2022-02-09 Aribindi, Demetris [facility] 03:57:00 [facility] CBC W/PLT COUNT & AUTO 2022-02-09 Eli, Irina [facility] DIFFERENTIAL 03:57:00 [facility] BASIC METABOLIC PANEL 2022-02-09 Eli, Irina [facility] 03:57:00 [facility] CBC W/PLT COUNT & AUTO 2022-02-09 Eli, Irina [facility] DIFFERENTIAL 03:57:00 [facility] CBC W/PLT COUNT & AUTO [address] [facility] kes DIFFERENTIAL 09:54:00 [facility] BASIC METABOLIC PANEL [address] [facility] 09:54:00 [facility] MAGNESIUM [address] [facility] 09:54:00 [facility] PHOSPHORUS [address] [facility] 09:54:00 [facility] CBC W/PLT COUNT & AUTO [address] [facility] Jessica kes DIFFERENTIAL 09:54:00 [facility] FUNGUS CULTURE + SMEAR 2022-02-[address] [facility] [facility] Jessica kes 14:34:00 [facility] SURGICALLY OBTAINED CULTURE 2022-02-[address] [facility] + GRAM STAIN 14:34:00 [facility] ANAEROBIC CULTURE 2022-02-[address] [facility] 14:34:00 [facility] AFB CULTURE + SMEAR 2022-02-[address] [facility] (NON-SPUTUM) 14:34:00 [facility] SPIN/CONCENTRATION CHARGE 2022-02-[address] [facility] 14:34:00 [facility] ANESTHESIA PERIPHERAL BLOCK 2022-02-07 Hallie, Christopher [facility] 13:15:39 [facility] ANESTHESIA PERIPHERAL BLOCK 2022-02-[address] [facility] 13:13:20 [facility] LAPAROTOMY, EXPLORATORY 2022-02-[address] [facility] 12:47:00 [facility] BASIC METABOLIC PANEL 2022-02-07 Chivo, Demetris [facility] 03:34:00 [facility] MAGNESIUM 2022-02-07 Chivo, Demetris [facility] 03:34:00 [facility] PHOSPHORUS 2022-02-07 Orlyi, Demetris [facility] 03:34:00 [facility] CBC W/PLT COUNT & AUTO 2022-02-07 Chivo, Demetris [facility] k[facility] DIFFERENTIAL 03:34:00 [facility] PROTHROMBIN TIME/INR 2022-02-[address] [facility] 03:34:00 [facility] CBC W/PLT COUNT & AUTO 2022-02-[address] [facility] DIFFERENTIAL 03:34:00 [facility] SARS-COV2/RT-PCR (HS & REF 2022-02-[address] [facility] LABS) 20:08:00 [facility] TYPE AND SCREEN, AUTOMATED 2022-02-[address] [facility] 20:08:00 [facility] XR CHEST 1 VIEW PORTABLE / 2022-02-[address] [facility] BEDSIDE 18:34:[address] [facility] [address] ABDOMEN/PELVIS WITH IV 2022-02-[address] [facility] CONTRAST 11:11:00 [facility] CBC W/PLT COUNT & AUTO 2022-02-[address] [facility] DIFFERENTIAL 04:05:00 [facility] BASIC METABOLIC PANEL 2022-02-05 [facility] 04:05:00 [facility] MAGNESIUM 2022-02-[address] [facility] 04:05:00 [facility] PHOSPHORUS 2022-02-[address] [facility] 04:05:00 [facility] CBC W/PLT COUNT & AUTO 2022-02-[address] [facility] DIFFERENTIAL 04:05:00 [facility] POCT-GLUCOSE METER 2022-02-[address] [facility] 07:24:00 [facility] CBC W/PLT COUNT & AUTO 2022-02-[address] [facility] DIFFERENTIAL 04:22:00 [facility] BASIC METABOLIC PANEL 2022-02-[address] [facility] kes 04:22:00 [facility] PHOSPHORUS 2022-02-[address] [facility] 04:22:00 [facility] CBC W/PLT COUNT & AUTO 2022-02-[address] [facility] DIFFERENTIAL 04:22:00 [facility] POCT-GLUCOSE METER 2022-02-[address] [facility] 18:06:00 [facility] REPORT OF PROCEDURE - 2022-02-02 Willard, Shawn [facility] ENDOSCOPY URL 12:46:22 [facility] [place] FLUORO NON-SPECIFIC UP TO 2022-02-[address] [facility] 1 HOUR 12:15:00 [facility] ESOPHAGOSCOPY, WITH 2022-02-02 Willard, Shawn [facility] ENDOSCOPIC ULTRASOUND 11:27:00 [facility] nter PROCEDURE W/ C-ARM 2022-02-[address] [facility] 11:27:00 [facility] CBC W/PLT COUNT & AUTO 2022-02-[address] [facility] DIFFERENTIAL 04:41:00 [facility] BASIC METABOLIC PANEL 2022-02-[address] [facility] kes 04:41:00 [facility] PHOSPHORUS 2022-02-02 Frantz Sánchez [facility] 04:41:00 [facility] PROTHROMBIN TIME/INR 2022-02-[address] [facility] 04:41:00 [facility] CBC W/PLT COUNT & AUTO 2022-02-[address] [facility] DIFFERENTIAL 04:41:00 [facility] SARS-COV2/RT-PCR ([facility] & REF 2022-02-01 Aribindi, Demetris [facility] LABS) 08:33:00 [facility] CBC W/PLT COUNT & AUTO 2022-02-[address] [facility] DIFFERENTIAL 05:24:00 [facility] BASIC METABOLIC PANEL 2022-02-[address] [facility] k[facility] 05:24:00 [facility] PHOSPHORUS 2022-02-[address] [facility] 05:24:00 [facility] PROTHROMBIN TIME/INR 2022-02-[address] [facility] 05:24:00 [facility] CBC W/PLT COUNT & AUTO 2022-02-[address] [facility] DIFFERENTIAL 05:24:00 [facility] CBC W/PLT COUNT & AUTO 2022-01-[address] [facility] DIFFERENTIAL 05:51:00 [facility] BASIC METABOLIC PANEL 2022-01-[address] [facility] kes 05:51:00 [facility] PHOSPHORUS 2022-01-31 Frantz Sánchez [facility] 05:51:00 [facility] CBC W/PLT COUNT & AUTO 2022-01-[address] [facility] DIFFERENTIAL 05:51:[address] [facility] [address] ABDOMEN/PELVIS WITH IV 2022-01-[address] [facility] CONTRAST 20:16:00 [facility] CBC W/PLT COUNT & AUTO 2022-01-[address] [facility] DIFFERENTIAL 06:07:00 [facility] BASIC METABOLIC PANEL 2022-01-30 Frantz Sánchez [facility] 06:07:00 [facility] PHOSPHORUS 2022-01-[address] [facility] 06:07:00 [facility] CBC W/PLT COUNT & AUTO 2022-01-30 Frantz Sánchez [facility] DIFFERENTIAL 06:07:00 [facility] CBC W/PLT COUNT & AUTO 2022-01-29 Ali, Hiba Ned [facility] DIFFERENTIAL 04:24:00 [facility] BASIC METABOLIC PANEL 2022-01-29 Ali, Hiba Ned [facility] 04:24:00 [facility] PHOSPHORUS 2022-01-29 Ali, Hiba Ned [facility] 04:24:00 [facility] CBC W/PLT COUNT & AUTO 2022-01-29 Ali, Hiba Ned [facility] DIFFERENTIAL 04:24:00 [facility] CBC W/PLT COUNT & AUTO 2022-01-[address] [facility] DIFFERENTIAL 14:51:00 [facility] BASIC METABOLIC PANEL 2022-01-28 Ali, Hiba Ned [facility] 14:51:00 [facility] PHOSPHORUS 2022-01-28 Ali, Hiba Ned [facility] 14:51:00 [facility] CBC W/PLT COUNT & AUTO 2022-01-[address] [facility] DIFFERENTIAL 14:51:00 [facility] COMPREHENSIVE METABOLIC 2022-01-27 Nalam, Nilsa Gladys [facility] PANEL 05:23:00 [facility] MAGNESIUM 2022-01-27 Nalam, Nilsa Gladsy [facility] 05:23:00 [facility] CBC W/PLT COUNT & AUTO 2022-01-27 Nalam, Nilsa Gladys [facility] DIFFERENTIAL 05:23:00 [facility] PHOSPHORUS 2022-01-[address] [facility] 05:23:00 [facility] CBC W/PLT COUNT & AUTO 2022-01-27 Nalam, Nilsa Gladys [facility] DIFFERENTIAL 05:23:00 [facility] SARS-COV2/RT-PCR (HS & REF 2022-01-26 Kale Waldroni [facility] LABS) 19:44:00 [facility] XR KNEE 3 VIEWS RIGHT 2022-01-26 Keron Hess [facility] 12:47:00 [facility] COMPLEMENT COMPONENT C3 2022-01-26 Nalam, Nilsa Gladys [facility] 04:38:00 [facility] DOUBLE-STRANDED DNA (DSDNA) 2022-01-26 Nalam, Nilsa Gladys [facility] ANTIBODY 04:38:00 [facility] COMPREHENSIVE METABOLIC 2022-01-26 Nalam, Nilsa Gladys [facility] PANEL 04:38:00 [facility] MAGNESIUM 2022-01-26 Nalam, Nilsa Gladys [facility] 04:38:00 [facility] CBC W/PLT COUNT & AUTO 2022-01-26 Nalam, Nilsa Gladys [facility] DIFFERENTIAL 04:38:00 [facility] PHOSPHORUS 2022-01-[address] [facility] 04:38:00 [facility] HEMOGLOBIN A1C 2022-01-26 Nalam, Nilsa Gladys [facility] 04:38:00 [facility] ANTI-DNA TITER 2022-01-26 Nalam, Nilsa Gladys [facility] 04:38:00 [facility] CBC W/PLT COUNT & AUTO 2022-01-26 Nalam, Nilsa Gladys [facility] DIFFERENTIAL 04:38:00 [facility] URINALYSIS W/ MICROSCOPIC 2022-01-25 Nalam, Nilsa Gladys [facility] 22:19:00 [facility] Center PROTHROMBIN TIME/INR 2022-01-25 Nalam, Nilsa Gladys [facility] 10:28:00 [facility] Center CBC W/PLT COUNT & AUTO 2022-01-[address] [facility] DIFFERENTIAL 06:40:00 [facility] BASIC METABOLIC PANEL 2022-01-25 Gricelda Arteaga [facility] 06:40:00 [facility] PT/APTT 2022-01-[address] [facility] 06:40:00 [facility] LACTIC ACID, VENOUS 2022-01-[address] [facility] 06:40:00 [facility] HEPATIC FUNCTION PANEL 2022-01-25 Nalam, Nilsa Gladys [facility] 06:40:00 Medical Center MAGNESIUM 2022-01-25 Nalam, Nilsa Gladys [facility] 06:40:00 [facility] Center PHOSPHORUS 2022-01-25 Nalam, Nilsa Gladys [facility] 06:40:00 Medical Center TYPE AND SCREEN, AUTOMATED 2022-01-[address] [facility] 06:40:00 [facility] CBC W/PLT COUNT & AUTO 2022-01-[address] [facility] DIFFERENTIAL 06:40:00 [facility] EKG-SCANNED 2022-01-[address] [facility] 00:00:00 Scanning [facility] BASIC METABOLIC PANEL 2021-12-25 Ari, [facility] 04:08:00 [facility] CBC W/PLT COUNT & AUTO 2021-12-25 Alex Hern[facility]dez [facility] DIFFERENTIAL 04:08:00 [facility] Center CBC W/PLT COUNT & AUTO 2021-12-25 Alex Hernández Post [facility] DIFFERENTIAL 04:08:00 [facility] SARS-COV2/RT-PCR ([facility] & REF 2021-12-24 [facility] 16:21:00 [facility] BASIC METABOLIC PANEL 2021-12-24 Marc, [facility] 03:16:00 [facility] Center CBC W/PLT COUNT & AUTO 2021-12-24 Alex Hern[facility]dez [facility] DIFFERENTIAL 03:16:00 [facility] Center CBC W/PLT COUNT & AUTO 2021-12-24 Alex Hernández Post [facility] DIFFERENTIAL 03:16:00 [facility] BASIC METABOLIC PANEL 2021-12-23 Arif, [facility] 03:08:00 [facility] Center CBC W/PLT COUNT & AUTO 2021-12-23 Alex Hernández Post [facility] DIFFERENTIAL 03:08:00 [facility] Center CBC W/PLT COUNT & AUTO 2021-12-23 Alex Hernández Post [facility] DIFFERENTIAL 03:08:00 [facility] BASIC METABOLIC PANEL 2021-12-22 Arif, [facility] 03:56:00 [facility] Center CBC W/PLT COUNT & AUTO 2021-12-22 Alex Hernández Post [facility] DIFFERENTIAL 03:56:00 [facility] Center COMPLEMENT COMPONENT C4 2021-12-[address] [facility] 03:56:00 [facility] Center CBC W/PLT COUNT & AUTO 2021-12-22 Alex Hernández Yolanda [facility] DIFFERENTIAL 03:56:00 [facility] BASIC METABOLIC PANEL 2021-12-21 Arif, Sahar [facility] 05:21:00 [facility] Center CBC W/PLT COUNT & AUTO 2021-12-21 Alex Hernández Post [facility] DIFFERENTIAL 05:21:00 [facility] Center CBC W/PLT COUNT & AUTO 2021-12-21 Alex Hernández Post [facility] DIFFERENTIAL 05:21:[address] [facility] [address] ABDOMEN/PELVIS WITH IV 2021-12-20 Kaitlyn Manjagdeepashvin [facility] CONTRAST 06:25:00 [facility] BASIC METABOLIC PANEL 2021-12-20 Arif, Sahar [facility] 04:59:00 [facility] MAGNESIUM 2021-12-20 Arif, Sahar [facility] 04:59:00 [facility] Center CBC W/PLT COUNT & AUTO 2021-12-20 Alex Hernández Post [facility] DIFFERENTIAL 04:59:00 [facility] Center CBC W/PLT COUNT & AUTO 2021-12-20 Alex Hernández Post [facility] DIFFERENTIAL 04:59:00 [facility] BASIC METABOLIC PANEL 2021-12-19 Arif, Sahar [facility] 04:42:00 [facility] MAGNESIUM 2021-12-19 Arif, Sahar [facility] 04:42:00 [facility] Center CBC W/PLT COUNT & AUTO 2021-12-19 EdgarAlex alvarez Post [facility] DIFFERENTIAL 04:42:00 [facility] Center CBC W/PLT COUNT & AUTO 2021-12-19 Edgar, Alex Post [facility] DIFFERENTIAL 04:42:00 [facility] BASIC METABOLIC PANEL 2021-12-18 Arif, Sahar [facility] 04:10:00 [facility] MAGNESIUM 2021-12-18 Arif, Sahar [facility] 04:10:00 [facility] Center CBC W/PLT COUNT & AUTO 2021-12-18 Edgar Alex Guerrero [facility] DIFFER[facility] 04:10:00 Medical Center CBC W/PLT COUNT & AUTO 2021-12-18 Edgar Alex Guerrero [facility] DIFFER[facility] 04:10:00 [facility] SARS-COV2/RT-PCR ([facility] & REF 2021-12-17 Arif, Sahar [facility] [facility] 13:09:00 [facility] BASIC METABOLIC PANEL 2021-12-17 Arif, Sahar [facility] 05:40:00 [facility] MAGNESIUM 2021-12-17 Arif, Sahar [facility] 05:40:00 [facility] CBC W/PLT COUNT & AUTO 2021-12-17 Edgar [facility]ro [facility] DIFFER[facility] 05:40:00 [facility] CREATINE KINASE (CK) 2021-12-17 Edgar Alex Guerrero [facility] 05:40:00 [facility] CBC W/PLT COUNT & AUTO 2021-12-17 Edgar Alex [facility]ro [facility] DIFFERENTIAL 05:40:00 [facility] BASIC METABOLIC PANEL 2021-12-16 Arif, Sahar [facility] 04:54:00 [facility] MAGNESIUM 2021-12-16 Arif, Sahar [facility] 04:54:00 [facility] HEPATIC FUNCTION PANEL 2021-12-16 Edgar Alex [facility]ro [facility] 04:54:00 [facility] CBC W/PLT COUNT & AUTO 2021-12-16 Edgar Alex [facility]ro [facility]FFER[facility] 04:54:00 [facility] CBC W/PLT COUNT & AUTO 2021-12-16 Edgar Alex [facility]ro [facility] DIFFER[facility] 04:54:00 [facility] MAGNESIUM 2021-12-15 Arif, Sahar [facility] 12:00:00 [facility] BASIC METABOLIC PANEL 2021-12-15 Arif, Sahar [facility] 12:00:00 [facility] CBC (HEMOGRAM ONLY) 2021-12-[address] [facility] [facility] 12:00:00 [facility] XR CHEST 1 VIEW PORTABLE / 2021-12-[address] [facility] BEDSIDE 10:17:00 [facility] MAGNESIUM 2021-12-15 Arif, Sahar [facility] 05:49:00 [facility] CT ABDOMEN/PELVIS WITH IV 2021-12-[address] [facility] CONTRAST 10:05:00 [facility] CBC W/PLT COUNT & AUTO 2021-12-14 Arif, Miker [facility] DIFFERENTIAL 05:39:00 [facility] CBC W/PLT COUNT & AUTO 2021-12-14 Arif, Miker [facility] DIFFERENTIAL 05:39:00 [facility] POCT-GLUCOSE METER 2021-12-[address] [facility] 07:29:00 [facility] BASIC METABOLIC PANEL 2021-12-13 Arif, Miker [facility] 07:06:00 [facility] MAGNESIUM 2021-12-13 Arif, Sahar [facility] 07:06:00 [facility] WOUND CULTURE + GRAM STAIN 2021-12-12 Arif, Melissa [facility] 18:11:00 [facility] CBC W/PLT COUNT & AUTO 2021-12-12 Arif, Melissa [facility] DIFFERENTIAL 06:12:00 [facility] BASIC METABOLIC PANEL 2021-12-12 Arif, Sahar [facility] 06:12:00 [facility] MAGNESIUM 2021-12-12 Arif, Miker [facility] 06:12:00 [facility] CBC W/PLT COUNT & AUTO 2021-12-12 Arif, Miker [facility] DIFFERENTIAL 06:12:[address] [facility] [address] DRAINAGE W CATH PLACEMENT 2021-12-11 Arif, Sahar [facility] 18:10:00 [facility] BASIC METABOLIC PANEL 2021-12-11 Arif, Miker [facility] 05:56:00 [facility] MAGNESIUM 2021-12-11 Arif, Sahar [facility] 05:56:[address] [facility] [address] ABDOMEN/PELVIS WITH IV 2021-12-10 Cheryl Martinez Criss [facility] CONTRAST 13:21:00 [facility] SARS-COV2/RT-PCR ([facility] & REF 2021-12-10 Arif, Sahar [facility] 12:34:00 [facility] CBC W/PLT COUNT & AUTO 2021-12-10 Arif, Miker [facility] DIFFERENTIAL 05:35:00 [facility] BASIC METABOLIC PANEL 2021-12-10 Arif, Sahar [facility] 05:35:00 [facility] MAGNESIUM 2021-12-10 Arif[facility] Melissa [facility] 05:35[facility]00 [facility] CBC W/PLT COUNT & AUTO 2021-12-10 Arif, Melissa [facility] DIFFERENTIAL 05:35:00 [facility] MISCELLANEOUS LAB ORDER 2021-12-[address] [facility] 17:08:00 [facility] BASIC METABOLIC PANEL 2021-12-09 Arif, Melissa [facility] 04:11:00 [facility] MAGNESIUM 2021-12-09 Arif, Melissa [facility] 04:11:00 [facility] DOUBLE-STRANDED DNA (DSDNA) 2021-12-09 Arif, Melissa [facility] ANTIBODY 04:11:00 [facility] COMPLEMENT COMPONENT C4 2021-12-09 Arif, Melissa [facility] 04:11:00 [facility] PROTHROMBIN TIME/INR 2021-12-09 Arif, Melissa [facility] 04:11:00 [facility] ANTI-DNA TITER 2021-12-09 Arif, Melissa [facility] 04:11:00 [facility] URINALYSIS W/ MICROSCOPIC 2021-12-08 Robby, Mona Cesar [facility] 22:19:00 [facility] PROTEIN, RANDOM URINE 2021-12-08 Robby, Mona Cesar [facility] 22:18:00 [facility] CREATININE, RANDOM URINE 2021-12-08 [facility] Cesar [facility] 22:18:00 [facility] POCT-GLUCOSE METER 2021-12-08 Arif, Melissa [facility] 10:20:00 [facility] BASIC METABOLIC PANEL 2021-12-08 Adio, Titilola [facility]. [facility] 05:32:00 [facility] HEPATIC FUNCTION PANEL 2021-12-08 Adio, Titilola R. [facility] 05:32:00 [facility] LIPID PANEL 2021-12-08 Adio, Titilola R. [facility] 05:32:00 [facility] MAGNESIUM 2021-12-08 Adio, Titilola R. [facility] 05:32:00 [facility] PHOSPHORUS 2021-12-08 Adio, Titilola R. [facility] 05:32:00 [facility] CBC W/PLT COUNT & AUTO 2021-12-08 Adio, Bethany R. [facility] DIFFERENTIAL 05:32:00 [facility] HEMOGLOBIN A1C 2021-12-08 Adio, Titfelipeola R. [facility] 05:32:00 [facility] CBC W/PLT COUNT & AUTO 2021-12-08 Adio, Titriley R. [facility] DIFFERENTIAL 05:32:00 [facility] BLOOD CULTURE 2021-12-07 Ozuna, Khushi [facility] 14:13:00 [facility] POCT-GLUCOSE METER 2021-12-07 Ozuna, Khushi [facility] 13:44:00 [facility] CBC W/PLT COUNT & AUTO 2021-12-07 Ozuna, Khushi [facility]ENTIAL 13:39:00 [facility] LACTIC ACID, VENOUS 2021-12-07 Ozuna, [facility]00 [facility] COMPREHENSIVE METABOLIC 2021-12-07 Ozuna, Khushi [facility] PANEL 13:39:00 [facility] PROTHROMBIN TIME/INR 2021-12-07 Ozuna, Khushi [facility] 13:39[facility]00 [facility] APTT 2021-12-07 Ozuna, Khushi [facility] 13:39:00 [facility] LIPASE 2021-12-07 Ozuna, Khushi [facility] 13:39:00 [facility] CBC W/PLT COUNT & AUTO 2021-12-07 Ozuna, Khushi [facility] DIFFERENTIAL 13:39:00 [facility] BUN/CREATININE RATIO W/EGFR 2021-10-19 [facility] 13:53:50 Medicine POCT-GLUCOSE METER 2021-10-[address] [facility] 11:51:00 [facility] POCT-GLUCOSE METER 2021-10-[address] [facility] 07:14:00 [facility] BASIC METABOLIC PANEL 2021-10-[address] [facility] 05:42:00 [facility] HEPATIC FUNCTION PANEL 2021-10-[address] [facility] 05:42:00 [facility] MAGNESIUM 2021-10-[address] [facility] 05:42:00 [facility] PHOSPHORUS 2021-10-[address] [facility] 05:42:00 [facility] CBC W/PLT COUNT & AUTO 2021-10-[address] [facility] DIFFERENTIAL 05:42:00 [facility] CBC W/PLT COUNT & AUTO 2021-10-[address] [facility] DIFFERENTIAL 05:42:00 [facility] POCT-GLUCOSE METER 2021-10-[address] [facility] 21:53:00 [facility] POCT-GLUCOSE METER 2021-10-[address] [facility] 16:39:00 [facility] POCT-GLUCOSE METER 2021-10-[address] [facility] 11:35:00 [facility] BASIC METABOLIC PANEL 2021-10-[address] [facility] 11:05:00 [facility] HEPATIC FUNCTION PANEL 2021-10-[address] [facility] 11:05:00 [facility] MAGNESIUM 2021-10-[address] [facility] 11:05:00 [facility] PHOSPHORUS 2021-10-[address] [facility] 11:05:00 [facility] CBC W/PLT COUNT & AUTO 2021-10-[address] [facility] DIFFERENTIAL 11:05:00 [facility] CBC W/PLT COUNT & AUTO 2021-10-[address] [facility] DIFFERENTIAL 11:05:00 [facility] POCT-GLUCOSE METER 2021-10-[address] [facility] 09:25:00 [facility] POCT-GLUCOSE METER 2021-10-[address] [facility] 20:30:00 [facility] SARS-COV2/RT-PCR ([facility] & REF 2021-10-[address] [facility] 19:22:00 [facility] POCT-GLUCOSE METER 2021-10-[address] [facility] 17:32:00 [facility] POCT-GLUCOSE METER 2021-10-[address] [facility] 11:58:00 [facility] POCT-GLUCOSE METER 2021-10-[address] [facility] 08:40:00 [facility] BASIC METABOLIC PANEL 2021-10-[address] [facility] [facility] 04:39:00 [facility] HEPATIC FUNCTION PANEL 2021-10-[address] [facility] 04:39:00 [facility] MAGNESIUM 2021-10-[address] [facility] 04:39:00 [facility] PHOSPHORUS 2021-10-[address] [facility] 04:39:00 [facility] CBC W/PLT COUNT & AUTO 2021-10-[address] [facility] [facility] DIFFERENTIAL 04:39:00 [facility] CBC W/PLT COUNT & AUTO 2021-10-[address] [facility] DIFFERENTIAL 04:39:00 [facility] POCT-GLUCOSE METER 2021-10-[address] [facility] 21:29:00 [facility] POCT-GLUCOSE METER 2021-10-[address] [facility] 16:23:00 [facility] POCT-GLUCOSE METER 2021-10-[address] [facility] 10:54:00 [facility] POCT-GLUCOSE METER 2021-10-[address] [facility] 07:37:00 [facility] BASIC METABOLIC PANEL 2021-10-[address] [facility] 04:03:00 [facility] HEPATIC FUNCTION PANEL 2021-10-[address] [facility] 04:03:00 [facility] MAGNESIUM 2021-10-[address] [facility] 04:03:00 [facility] PHOSPHORUS 2021-10-[address] [facility] 04:03:00 [facility] POCT-GLUCOSE METER 2021-10-[address] [facility] 21:21:00 [facility] POCT-GLUCOSE METER 2021-10-[address] [facility] 16:37:00 [facility] POCT-GLUCOSE METER 2021-10-06 Laurencemomodaphne [address]ashvin [facility] 12:35:00 [facility] BASIC METABOLIC PANEL 2021-10-[address] [facility] 05:03:00 [facility] HEPATIC FUNCTION PANEL 2021-10-[address] [facility] 05:03:00 [facility] MAGNESIUM 2021-10-[address] [facility] 05:03:00 [facility] PHOSPHORUS 2021-10-[address] [facility] 05:03:00 [facility] CBC W/PLT COUNT & AUTO 2021-10-[address] [facility] DIFFERENTIAL 05:03:00 [facility] CBC W/PLT COUNT & AUTO 2021-10-[address] [facility] DIFFERENTIAL 05:03:00 [facility] POCT-GLUCOSE METER 2021-10-[address] [facility] 21:08:00 [facility] POCT-GLUCOSE METER 2021-10-[address] [facility] 16:19:00 [facility] POCT-GLUCOSE METER 2021-10-[address] [facility] 11:23:00 [facility] POCT-GLUCOSE METER 2021-10-[address] [facility] 07:50:00 [facility] MAGNESIUM 2021-10-[address] [facility] 06:03:00 [facility] PHOSPHORUS 2021-10-[address] [facility] 06:03:00 [facility] CBC W/PLT COUNT & AUTO 2021-10-[address] [facility] DIFFERENTIAL 06:03:00 [facility] CBC W/PLT COUNT & AUTO 2021-10-[address] [facility] DIFFERENTIAL 06:03:00 [facility] BASIC METABOLIC PANEL 2021-10-[address] [facility] 06:03:00 [facility] HEPATIC FUNCTION PANEL 2021-10-[address] [facility] 06:03:00 [facility] SARS-COV2/RT-PCR ([facility] & REF 2021-10-[address] [facility]) 05:55:00 [facility] POCT-GLUCOSE METER 2021-10-[address] [facility] 21:11:00 [facility] POCT-GLUCOSE METER 2021-10-[address] [facility] 17:22:00 [facility] POCT-GLUCOSE METER 2021-10-[address] [facility] 11:19:00 [facility] CBC W/PLT COUNT & AUTO 2021-10-[address] [facility] DIFFERENTIAL 05:54:00 [facility] BASIC METABOLIC PANEL 2021-10-[address] [facility] 05:54:00 [facility] HEPATIC FUNCTION PANEL 2021-10-[address] [facility] 05:54:00 [facility] MAGNESIUM 2021-10-[address] [facility] 05:54:00 [facility] PHOSPHORUS 2021-10-[address] [facility] 05:54:00 [facility] CBC W/PLT COUNT & AUTO 2021-10-[address] [facility] DIFFERENTIAL 05:54:00 [facility] POCT-GLUCOSE METER 2021-10-[address] [facility] 16:36:00 [facility] POCT-GLUCOSE METER 2021-10-[address] [facility] 11:34:00 [facility] POCT-GLUCOSE METER 2021-10-[address] [facility] 04:57:00 [facility] BASIC METABOLIC PANEL 2021-10-[address] [facility] 04:52:00 [facility] HEPATIC FUNCTION PANEL 2021-10-[address] [facility] 04:52:00 [facility] MAGNESIUM 2021-10-[address] [facility] 04:52:00 [facility] CBC (HEMOGRAM ONLY) 2021-10-[address] [facility] 04:52:00 [facility] PHOSPHORUS 2021-10-[address] [facility] 04:52:00 [facility] BASIC METABOLIC PANEL 2021-10-[address] [facility] 20:40:00 [facility] CBC (HEMOGRAM ONLY) 2021-10-[address] 20:40:00 [facility] MAGNESIUM 2021-10-[address] [facility] 20:40:00 [facility] PHOSPHORUS 2021-10-[address] [facility] 20:40:00 [facility] POCT-GLUCOSE METER 2021-10-02 Kathy Fernandez [facility] 19:37:00 [facility] RRL CRITICAL LABS 2021-10-02 Lissette Amado [facility] (ABG,NA,K,H&H,GLUCOSE) 17:55:12 [facility] CALCIUM, IONIZED 2021-10-02 Lissette Amado [facility] 17:55:12 [facility] BLOOD GAS, ARTERIAL 2021-10-[address] [facility] 17:55:12 [facility] SODIUM NA-STAT LAB 2021-10-[address] [facility] 17:55:12 [facility] POTASSIUM-STAT LAB 2021-10-02 Lissette, [facility] 17:55:12 [facility] GLUCOSE-STAT LAB 2021-10-02 Lissette, [facility] 17:55:12 [facility] HGB/HCT (H&H) - STAT LAB 2021-10-02 Lissette, Amadoshady [facility] 17:55:12 [facility] FUNGUS CULTURE + SMEAR 2021-10-02 Lissette Amado [facility] 17:47:00 [facility] SURGICALLY OBTAINED CULTURE 2021-10-[address] [facility] + GRAM STAIN 17:47:00 [facility] ANAEROBIC CULTURE 2021-10-[address] [facility] 17:47:00 [facility] AFB CULTURE + SMEAR 2021-10-[address] [facility] (NON-SPUTUM) 17:47:00 [facility] WASHOUT, ABDOMINAL CAVITY 2021-10-[address] [facility] 16:47:00 [facility] POCT-GLUCOSE METER 2021-10-[address] [facility] 15:51:00 [facility] VANCOMYCIN LEVEL, TROUGH 2021-10-[address] [facility] 13:39:00 [facility] POCT-GLUCOSE METER 2021-10-[address] [facility] 10:50:00 [facility] POCT-GLUCOSE METER 2021-10-[address] [facility] 07:17:00 [facility] BASIC METABOLIC PANEL 2021-10-[address] [facility] 05:48:00 [facility] HEPATIC FUNCTION PANEL 2021-10-[address] [facility] 05:48:00 [facility] MAGNESIUM 2021-10-[address] [facility] 05:48:00 [facility] CBC (HEMOGRAM ONLY) 2021-10-[address] [facility] 05:48:00 [facility] PHOSPHORUS 2021-10-[address] [facility] 05:48:00 [facility] POCT-GLUCOSE METER 2021-10-[address] [facility] 21:35:00 [facility] POCT-GLUCOSE METER 2021-10-[address] [facility] 16:42:00 [facility] SARS-COV2/RT-PCR ([facility] & REF 2021-10-[address] [facility]) 14:49:00 [facility] TYPE AND SCREEN, AUTOMATED 2021-10-[address] [facility] 14:48:00 [facility] POCT-GLUCOSE METER 2021-10-[address] [facility] 12:11:00 [facility] 2D ECHO W/ DOPPLER 2021-10-[address] [facility] (CW/PW/COLOR) 09:32:[address] [facility] [address] ABD/PELVIS - PANCREAS 2021-10-01 Matty L[address] [facility] EVALUATION 07:54:00 [facility] BASIC METABOLIC PANEL 2021-10-[address] [facility] 04:54:00 [facility] HEPATIC FUNCTION PANEL 2021-10-[address] [facility] 04:54:00 [facility] MAGNESIUM 2021-10-[address] [facility] 04:54:00 [facility] CBC (HEMOGRAM ONLY) 2021-10-[address] [facility] 04:54:00 [facility] PHOSPHORUS 2021-10-[address] [facility] 04:54:00 [facility] PREPARE LEUKO-REDUCED RBC 2021-09-[address] [facility] 23:54:00 [facility] POCT-GLUCOSE METER 2021-09-[address] [facility] 22:32:00 [facility] BLOOD CULTURE 2021-09-[address] [facility] 20:24:00 [facility] BLOOD CULTURE 2021-09-[address] [facility] 20:23:00 [facility] POCT-GLUCOSE METER 2021-09-[address] [facility] 17:01:00 [facility] POCT-GLUCOSE METER 2021-09-[address] [facility] 11:33:00 [facility] POCT-GLUCOSE METER 2021-09-[address] [facility] 07:38:00 [facility] DOUBLE-STRANDED DNA (DSDNA) 2021-09-[address] [facility] ANTIBODY 05:18:00 [facility] ANTI-DNA TITER 2021-09-[address] [facility] 05:18:00 [facility] COMPLEMENT COMPONENT C3 2021-09-[address] [facility] 01:32:00 [facility] VANCOMYCIN LEVEL, TROUGH 2021-09-30 Edgar, Alex Post [facility] 01:31:00 [facility] BASIC METABOLIC PANEL 2021-09-[address] [facility] [facility] 01:31:00 [facility] HEPATIC FUNCTION PANEL 2021-09-[address] [facility] 01:31:00 [facility] MAGNESIUM 2021-09-[address] [facility] 01:31:00 [facility] CBC (HEMOGRAM ONLY) 2021-09-[address] [facility] 01:31:00 [facility] PHOSPHORUS 2021-09-[address] [facility] 01:31:00 [facility] PREPARE LEUKO-REDUCED RBC 2021-09-[address] [facility] 23:54:00 [facility] POCT-GLUCOSE METER 2021-09-[address] [facility] 20:44:00 [facility] PROTEIN, RANDOM URINE 2021-09-29 Kathy Fernandez [facility] 17:45:00 [facility] CREATININE, RANDOM URINE 2021-09-[address] [facility] 17:45:00 [facility] URINALYSIS W/ MICROSCOPIC 2021-09-29 Kathy Fernandez [facility] 17:45:00 [facility] TRANSFUSE LEUKO-REDUCED RED 2021-09-[address] [facility] BLOOD CELLS 16:31:00 [facility] TRANSFUSE LEUKO-REDUCED RED 2021-09-[address] [facility] BLOOD CELLS 12:26:00 [facility] POCT-GLUCOSE METER 2021-09-[address] [facility] 08:03:00 [facility] BASIC METABOLIC PANEL 2021-09-[address] [facility] 05:09:00 [facility] HEPATIC FUNCTION PANEL 2021-09-[address] [facility] 05:09:00 [facility] MAGNESIUM 2021-09-[address] [facility] 05:09:00 [facility] CBC (HEMOGRAM ONLY) 2021-09-[address] [facility] 05:09:00 [facility] PHOSPHORUS 2021-09-29Mayela Ma [facility] 05:09:00 [facility] PROTHROMBIN TIME/INR 2021-09-[address] [facility] 05:09:00 [facility] POCT-GLUCOSE METER 2021-09-[address] [facility] 20:39:00 [facility] ECG 12-LEAD 2021-09-28 Unknown, Hl7 Doctor [facility] 18:40:16 [facility] ECG 12-LEAD 2021-09-28 Unknown, Hl7 Doctor [facility] 18:40:16 [facility] ECG 12-LEAD 2021-09-28 Unknown, Hl7 Doctor [facility] 18:40:16 [facility] XR CHEST 1 VIEW PORTABLE / 2021-09-28 Carmen Knapp [facility] BEDSIDE 18:22:00 [facility] HEMOGLOBIN AND HEMATOCRIT 2021-09-28 Kathy Fernandez [facility] 17:38:[address] [facility] [address] DRAINAGE ABDOMINAL 2021-09-[address] [facility] 16:51:00 [facility] AMYLASE, BODY FLUID 2021-09-[address] [facility] 16:35:00 [facility] BODY FLUID CULTURE + GRAM 2021-09-28 Kathy Fernandez [facility] STAIN 16:34:00 [facility] ANAEROBIC CULTURE 2021-09-[address] [facility] 16:34:00 [facility] AMYLASE 2021-09-[address] [facility] 12:17:00 [facility] POCT-GLUCOSE METER 2021-09-[address] [facility] 12:09:00 [facility] TRANSFUSE LEUKO-REDUCED RED 2021-09-[address] [facility] BLOOD CELLS 08:37:00 [facility] POCT-GLUCOSE METER 2021-09-[address] [facility] 07:47:00 [facility] ABORH, MANUAL 2021-09-[address] [facility] 07:34:00 [facility] TYPE AND SCREEN, AUTOMATED 2021-09-[address] [facility] 06:10:00 [facility] CBC W/PLT COUNT & AUTO 2021-09-28 [facility] DIFFERENTIAL 03:59:00 [facility] (CELLAVISION MANUAL DIFF) 2021-09-[address] [facility] 03:59:00 [facility] BASIC METABOLIC PANEL 2021-09-28 [facility] Anton[facility]ocojennifer [facility] 03:59:00 [facility] HEPATIC FUNCTION PANEL 2021-09-28 [facility] 03:59:00 [facility] PROTHROMBIN TIME/INR 2021-09-28 [facility] Anton[facility]ocojennifer [facility] 03:59:00 [facility] MAGNESIUM 2021-09-28 [facility] 03:59:00 [facility] PHOSPHORUS 2021-09-28 [facility] 03:59:00 [facility] CBC W/PLT COUNT & AUTO 2021-09-28 [facility]oc[facility]ennifer [facility] DIFFERENTIAL 03:59:00 [facility] LACTIC ACID, VENOUS 2021-09-28 [facility] 03:59:00 [facility] SARS-COV2/RT-PCR ([facility] & REF 2021-09-[address] [facility]) 02:17:[address] [facility] [address] ABDOMEN/PELVIS WITH IV 2021-09-[address] [facility] CONTRAST 23:04:00 [facility] CBC W/PLT COUNT & AUTO 2021-09-27 Kimmy Nunn R [facility] DIFFERENTIAL 21:35:00 [facility] (CELLAVISION MANUAL DIFF) 2021-09-27 Yaritza Nunnsa R [facility] 21:35:00 [facility] BLOOD CULTURE 2021-09-27 Yaritza Nunnsa R [facility] 21:35:00 [facility] BLOOD CULTURE IDENTIFICATION 2021-09-27 Kimmy Nunn R [facility] PANEL 21:35:00 [facility] CBC W/PLT COUNT & AUTO 2021-09-27 Kimmy Nunn R [facility] DIFFERENTIAL 21:35:00 [facility] COMPREHENSIVE METABOLIC 2021-09-27 Kimmy Nunn [facility] PANEL 21:35:00 [facility] LIPASE 2021-09-27 Edouard Kimmy R [facility] 21:35:00 [facility] LACTIC ACID, VENOUS 2021-09-27 Edouard, Kimmy [facility] 21:35:00 [facility] PROTHROMBIN TIME/INR 2021-09-27 Edouard, [facility] 21:35:00 [facility] XR CHEST 1 VIEW PORTABLE / 2021-09-27 Toneyteodoro Kimmy R [facility] BEDSIDE 20:27:00 [facility] CRITICAL CARE 2021-09-27 Toneyteodoro Kimmy R [facility] 20:07:17 [facility] POCT-GLUCOSE METER 2021-09-22 Eli, Irina [facility] 16:25:00 [facility] FECAL LEUKOCYTES 2021-09-[address] [facility] 14:35:00 [facility] POCT-GLUCOSE METER 2021-09-22 Eli, [facility]ina [facility] [facility]00 [facility] POCT-GLUCOSE METER 2021-09-22 Eli, Irina [facility] 07:31:00 [facility] MAGNESIUM 2021-09-22 Ukani, Nilam [facility] 04:34:00 [facility] BASIC METABOLIC PANEL 2021-09-[address] [facility] 04:34:00 [facility] POCT-GLUCOSE METER 2021-09-21 Eli, Irina [facility] 21:58:00 [facility] POCT-GLUCOSE METER 2021-09-21 Eli, Irina [facility] 17:14:00 [facility] POCT-GLUCOSE METER 2021-09-21 Eli, Irina [facility] 11:42:00 [facility] POCT-GLUCOSE METER 2021-09-21 Eli, Irina [facility] 07:36:00 [facility] CBC W/PLT COUNT & AUTO 2021-09-[address] [facility] DIFFERENTIAL 04:27:00 [facility] MAGNESIUM 2021-09-21 Ukani, Nilam [facility] 04:27:00 [facility] COMPREHENSIVE METABOLIC 2021-09-[address] [facility] PANEL 04:27:00 [facility] CBC W/PLT COUNT & AUTO 2021-09-[address] [facility] DIFFERENTIAL 04:27:00 [facility] FERRITIN 2021-09-[address] [facility] 04:27:00 [facility] POCT-GLUCOSE METER 2021-09-20 Eli, Irina [facility] 22:54:00 [facility] POCT-GLUCOSE METER 2021-09-20 Eli, Irina [facility] 15:43:00 [facility] POCT-GLUCOSE METER 2021-09-20 Eli, Irina [facility] 11:26:00 [facility] POCT-GLUCOSE METER 2021-09-[address] [facility] 08:00:00 [facility] CBC W/PLT COUNT & AUTO 2021-09-[address] [facility] DIFFERENTIAL 03:44:00 [facility] MAGNESIUM 2021-09-20 Ukani, Nilam [facility] 03:44:00 [facility] COMPREHENSIVE METABOLIC 2021-09-[address] [facility] PANEL 03:44:00 [facility] CBC W/PLT COUNT & AUTO 2021-09-[address] [facility] DIFFERENTIAL 03:44:00 [facility] FERRITIN 2021-09-[address] [facility] 03:44:00 [facility] POCT-GLUCOSE METER 2021-09-[address] [facility] 22:13:00 [facility] POCT-GLUCOSE METER 2021-09-[address] [facility] 17:40:00 [facility] MAGNESIUM 2021-09-19 [address] [facility] 15:24:00 [facility] POCT-GLUCOSE METER 2021-09-19 [address] Cu[address] [facility] 13:28:00 [facility] POCT-GLUCOSE METER 2021-09-[address] [facility] 08:10:00 [facility] CBC W/PLT COUNT & AUTO 2021-09-[address] [facility] DIFFERENTIAL 05:35:00 [facility] SARS-COV2/RT-PCR ([facility] & REF 2021-09-[address] [facility] 05:35:00 [facility] MAGNESIUM 2021-09-[address] [facility] 05:35:00 [facility] COMPREHENSIVE METABOLIC 2021-09-[address] [facility] PANEL 05:35:00 [facility] CBC W/PLT COUNT & AUTO 2021-09-[address] [facility] DIFFERENTIAL 05:35:00 [facility] FERRITIN 2021-09-[address] [facility] 05:35:00 [facility] POCT-GLUCOSE METER 2021-09-18 Rebecca Cuellar P[address] [facility] 21:29:00 [facility] POCT-GLUCOSE METER 2021-09-18 Rebecca Cuellar P. [facility] 16:56:00 [facility] POCT-GLUCOSE METER 2021-09-18 Rebecca Cuellar PAmanda [facility] 12:15:00 [facility] POCT-GLUCOSE METER 2021-09-18 Rebecca Cuellar P[address] [facility] 08:35:00 [facility] CBC W/PLT COUNT & AUTO 2021-09-[address] [facility] DI[facility] 06:58:00 [facility] MAGNESIUM 2021-09-[address] [facility] 06:58:00 [facility] COMPREHENSIVE METABOLIC 2021-09-[address] [facility] PANEL 06:58:00 [facility] CBC W/PLT COUNT & AUTO 2021-09-[address] [facility] 06:58:00 [facility] POCT-GLUCOSE METER 2021-09-17 Rebecca Cuellar P[address] [facility] 22:17:00 [facility] POCT-GLUCOSE METER 2021-09-17 Alisa Rebecca P[address] [facility] 17:06:00 [facility] POCT-GLUCOSE METER 2021-09-17 Alisa Rebecca P[address] [facility] 12:18:00 [facility] POCT-GLUCOSE METER 2021-09-17 Rebecca Cuellar P[address] [facility] 07:52:00 [facility] CBC W/PLT COUNT & AUTO 2021-09-[address] [facility] 05:45:00 [facility] MAGNESIUM 2021-09-17 Uklon, Nilam [facility] 05:45:00 [facility] FERRITIN 2021-09-[address] [facility] 05:45:00 [facility] COMPREHENSIVE METABOLIC 2021-09-[address] [facility] PANEL 05:45:00 [facility] CBC W/PLT COUNT & AUTO 2021-09-[address] [facility] 05:45:00 [facility] CMV PCR, QUANTITATIVE 2021-09-[address] [facility] 05:45:00 [facility] GI PATHOGEN PROFILE BY PCR 2021-09-17 [address] Cont[address] [facility] 05:11:00 [facility] GIARDIA ANTIGEN 2021-09-[address] [facility] 05:05:00 [facility] OVA AND PARASITE EXAMINATION 2021-09-[address] [facility] 04:59:00 [facility] POCT-GLUCOSE METER 2021-09-[address] [facility] 22:07:00 [facility] POCT-GLUCOSE METER 2021-09-[address] [facility] 17:29:00 [facility] POCT-GLUCOSE METER 2021-09-[address] [facility] 11:35:00 [facility] POCT-GLUCOSE METER 2021-09-[address] [facility] 07:52:00 [facility] CBC W/PLT COUNT & AUTO 2021-09-16 Rose Lorenzo [facility] 06:50:00 [facility] MAGNESIUM 2021-09-[address] [facility] 06:50:00 [facility] CBC W/PLT COUNT & AUTO 2021-09-16 Rose Lorenzo [facility] 06:50:00 [facility] COMPREHENSIVE METABOLIC 2021-09-[address] [facility] PANEL 06:50:00 [facility] FERRITIN 2021-09-[address] [facility] 06:50:00 [facility] POCT-GLUCOSE METER 2021-09-[address] [facility] 21:28:00 [facility] POCT-GLUCOSE METER 2021-09-[address] [facility] 17:17:00 [facility] BASIC METABOLIC PANEL 2021-09-[address] [facility] 16:38:00 [facility] MAGNESIUM 2021-09-[address] [facility] 16:38:00 [facility] VENOUS DOPPLER LEG, LEFT 2021-09-[address] [facility] 15:25:00 [facility] C. DIFFICILE GDH TOXIN 2021-09-15 Rose Lorenzo [facility] 14:29:00 [facility] POCT-GLUCOSE METER 2021-09-[address] [facility] 10:56:00 [facility] POCT-GLUCOSE METER 2021-09-[address] [facility] 07:10:00 [facility] CBC W/PLT COUNT & AUTO 2021-09-15 Rose Lorenzo [facility] 05:04:00 [facility] MAGNESIUM 2021-09-[address] [facility] 05:04:00 [facility] CBC W/PLT COUNT & AUTO 2021-09-15 Rose Lorenzo [facility] 05:04:00 [facility] COMPREHENSIVE METABOLIC 2021-09-[address] [facility] PANEL 05:04:00 [facility] FERRITIN 2021-09-[address] [facility] 05:04:00 [facility] POCT-GLUCOSE METER 2021-09-[address] [facility] 21:12:00 [facility] POCT-GLUCOSE METER 2021-09-[address] [facility] 18:00:00 [facility] FERRITIN 2021-09-[address] [facility] 14:00:00 [facility] POCT-GLUCOSE METER 2021-09-[address] [facility] 12:40:00 [facility] MAGNESIUM 2021-09-14 Nj, Nilam [facility] 12:24:00 [facility] BASIC METABOLIC PANEL 2021-09-14 [address] [facility] 12:24:00 [facility] HEPATIC FUNCTION PANEL 2021-09-14 Rose Lorenzo [facility] 12:24:00 [facility] POCT-GLUCOSE METER 2021-09-[address] [facility] 08:04:00 [facility] POCT-GLUCOSE METER 2021-09-[address] [facility] 21:38:00 [facility] POCT-GLUCOSE METER 2021-09-[address] [facility] 16:22:00 [facility] POCT-GLUCOSE METER 2021-09-[address] [facility] 11:57:00 [facility] POCT-GLUCOSE METER 2021-09-[address] [facility] 09:31:00 [facility] CBC W/PLT COUNT & AUTO 2021-09-13 Ukani, Nilam [facility] 04:11:00 [facility] CBC W/PLT COUNT & AUTO 2021-09-13 Ukani, Nilam [facility] 04:11:00 [facility] COMPREHENSIVE METABOLIC 2021-09-13 Ukani, [facility]am [facility] PAN[facility] 04:11:00 [facility] MAGNESIUM 2021-09-13 Ukani, Nilam [facility] 04:11:00 [facility] PHOSPHORUS 2021-09-13 Ukani, Nilam [facility] 04:11:00 [facility] POCT-GLUCOSE METER 2021-09-12 Maura Rose CortneyAmanda [facility] 21:08:00 [facility] CBC W/PLT COUNT & AUTO 2021-09-12 Ukani, Nilam [facility] 17:30:00 [facility] CBC W/PLT COUNT & AUTO 2021-09-12 Ukani, Nilam [facility] 17:30:00 [facility] COMPREHENSIVE METABOLIC 2021-09-12 Ukani, Nilam [facility] PANEL 17:30:00 [facility] MAGNESIUM 2021-09-[address] [facility] 17:30:00 [facility] PHOSPHORUS 2021-09-[address] [facility] 17:30:00 [facility] HEMOGLOBIN A1C 2021-09-[address] [facility] 17:30:00 [facility] DOUBLE-STRANDED DNA (DSDNA) 2021-09-12 Dahlia, Lynette [facility] ANTIBODY 17:30:00 [facility] COMPLEMENT COMPONENT C4 2021-09-12 Dahlia, [facility] 17:30:00 [facility] FERRITIN 2021-09-[address] [facility] 17:30:00 [facility] ANTI-DNA TITER 2021-09-[address] [facility] 17:30:00 [facility] POCT-GLUCOSE METER 2021-09-[address] [facility] 16:59:00 [facility] POCT-GLUCOSE METER 2021-09-[address] [facility] 11:36:00 [facility] XR HIP 2 VIEWS BILATERAL 2021-09-[address] [facility] 10:40:00 [facility] XR SHOULDER COMPLETE 2 VIEWS 2021-09-[address] [facility] MIN RIGHT 10:40:00 [facility] XR HAND 3 VIEWS RIGHT 2021-09-[address] [facility] 10:40:00 [facility] POCT-GLUCOSE METER 2021-09-[address] [facility] 07:29:00 [facility] PROTEIN, RANDOM URINE 2021-09-[address] [facility] [address] [facility] 05:46:00 [facility] CREATININE, RANDOM URINE 2021-09-12 Dahlia, Lynette [facility] 05:46:00 [facility] POCT-GLUCOSE METER 2021-09-[address] [facility] 21:23:00 [facility] POCT-GLUCOSE METER 2021-09-[address] [facility] 16:19:00 [facility] POCT-GLUCOSE METER 2021-09-[address] [facility] 11:34:00 [facility] CBC W/PLT COUNT & AUTO 2021-09-[address] [facility] 09:40:00 [facility] BLOOD CULTURE 2021-09-[address] [facility] 09:40:00 [facility] CBC W/PLT COUNT & AUTO 2021-09-11 Nj, Nilam [facility] DI[facility] 09:40:00 [facility] COMPREHENSIVE METABOLIC 2021-09-11 Nj, [facility] PANEL 09:40:00 [facility] MAGNESIUM 2021-09-11 Nilam Mauro [facility] 09:40:00 [facility] PHOSPHORUS 2021-09-11 Nilam Mauro [facility] 09:40:00 [facility] POCT-GLUCOSE METER 2021-09-[address] [facility] 07:18:00 [facility] CT ABDOMEN/PELVIS WITH IV 2021-09-[address] [facility] CONTRAST 23:05:00 [facility] POCT-GLUCOSE METER 2021-09-[address] [facility] 20:57:00 [facility] BLOOD CULTURE 2021-09-[address] [facility] 10:38:00 [facility] LACTIC ACID, VENOUS 2021-09-[address] [facility] 10:36:00 [facility] PROTHROMBIN TIME/INR 2021-09-[address] [facility] 10:36:00 [facility] APTT 2021-09-[address] [facility] 10:36:00 [facility] PROCALCITONIN 2021-09-[address] [facility] 10:36:00 [facility] XR CHEST 1 VIEW PORTABLE / 2021-09-[address] [facility] 09:14:00 [facility] CBC W/PLT COUNT & AUTO 2021-09-10 Nilam Mauro [facility] 05:05:00 [facility] (CELLAVISION MANUAL DIFF) 2021-09-10 Nj, Nilam [facility] 05:05:00 [facility] CBC W/PLT COUNT & AUTO 2021-09-10 Uklon, Nilam [facility] 05:05:00 [facility] COMPREHENSIVE METABOLIC 2021-09-10 Ukani, Nilam [facility] PANEL 05:05:00 [facility] MAGNESIUM 2021-09-10 Ukani, Nilam [facility] 05:05:00 [facility] PHOSPHORUS 2021-09-10 Uklon, Nilam [facility] 05:05:00 [facility] POCT-GLUCOSE METER 2021-09-[address] [facility] 20:57:00 [facility] POCT-GLUCOSE METER 2021-09-[address] [facility] 16:16:00 [facility] METABOLIC 2021-09-09 Nj, Nilam [facility] PANEL 14:55:00 [facility] POCT-GLUCOSE METER 2021-09-[address] [facility] 11:25:00 [facility] 2D ECHO MODE W/O DOPPLER 2021-09-09 Babita Cano [facility] 09:55:28 [facility] POCT-GLUCOSE METER 2021-09-[address] [facility] 06:44:00 [facility] POCT-GLUCOSE METER 2021-09-[address] [facility] 21:08:00 [facility] POCT-GLUCOSE METER 2021-09-[address] [facility] 19:41:00 [facility] POCT-GLUCOSE METER 2021-09-[address] [facility] 11:25:00 [facility] POCT-GLUCOSE METER 2021-09-[address] [facility] 09:10:00 [facility] POCT-GLUCOSE METER 2021-09-[address] [facility] 05:04:00 [facility] CBC W/PLT COUNT & AUTO 2021-09-[address] [facility] 04:20:00 [facility] CBC W/PLT COUNT & AUTO 2021-09-[address] [facility] 04:20:00 [facility] COMPREHENSIVE METABOLIC 2021-09-[address] [facility] PANEL 04:20:00 [facility] MAGNESIUM 2021-09-[address] [facility] 04:20:00 [facility] PHOSPHORUS 2021-09-[address] [facility] 04:20:00 [facility] POCT-GLUCOSE METER 2021-09-07 Karen Alix-Ambreen [facility] 23:09:00 [facility] POCT-GLUCOSE METER 2021-09-07 Kirit Jonesg-Ambreen [facility] 18:43:00 [facility] HAPTOGLOBIN 2021-09-[address] [facility] 12:25:00 [facility] FIBRINOGEN 2021-09-[address] [facility] 12:25:00 [facility] VANCOMYCIN LEVEL, TROUGH 2021-09-07 David De La Vega [facility] 12:25:00 [facility] HEMOGLOBIN AND HEMATOCRIT 2021-09-07 Ciccarello, Babita [facility] 12:25:00 [facility] COMPREHENSIVE METABOLIC 2021-09-[address] [facility] PAN[facility] 12:24:00 [facility] MAGNESIUM 2021-09-[address] [facility] 12:24:00 [facility] PHOSPHORUS 2021-09-[address] [facility] 12:24:00 [facility] LIPASE 2021-09-07 Ciccarello, Babita [facility] 12:24:00 [facility] PROCALCITONIN 2021-09-07 Ciccarello, Babita [facility] 12:24:00 [facility] HEPATIC FUNCTION PANEL 2021-09-07 Ciccarello, Babita [facility] 12:24:00 [facility] POCT-GLUCOSE METER 2021-09-[address] [facility] 12:01:00 [facility] URINALYSIS W/ REFLEX URINE 2021-09-[address] [facility] CULTURE 11:58:00 [facility] CBC W/PLT COUNT & AUTO 2021-09-[address] [facility] DIFFERENTIAL 05:29:00 [facility] (CELLAVISION MANUAL DIFF) 2021-09-07 Tiera Campoverde [facility] 05:29:00 [facility] CBC W/PLT COUNT & AUTO 2021-09-07 PALAK Blake [facility] DIFFERENTIAL 05:29:00 [facility] LACTIC ACID, VENOUS 2021-09-[address] [facility] 05:29:00 [facility] B-TYPE NATRIURETIC FACTOR 2021-09-07 Tiera Campoverde [facility] (BNP) 05:29:00 [facility] PERIPHERAL BLOOD SMEAR - 2021-09-[address] [facility] PATHOLOGIST REVIEW 05:29:00 [facility] POCT-BLOOD GASES, ARTERIAL 2021-09-[address] [facility] 02:53:00 [facility] POCT-SODIUM 2021-09-[address] [facility] 02:53:00 [facility] POCT-POTASSIUM 2021-09-[address] [facility] 02:53:00 [facility] POCT-HEMOGLOBIN 2021-09-[address] [facility] 02:53:00 [facility] POCT-HEMATOCRIT 2021-09-[address] [facility] 02:53:00 [facility] POCT-GLUCOSE 2021-09-[address] [facility] 02:53:00 [facility] XR CHEST 1 VIEW PORTABLE / 2021-09-[address] [facility] BEDSIDE 02:51:00 [facility] ECG 12-LEAD 2021-09-[address] [facility] 01:42:00 [facility] ECG 12-LEAD 2021-09-07 Unknown, Hl7 Doctor [facility] 01:42:00 [facility] ECG 12-LEAD 2021-09-07 Unknown, Hl7 Doctor [facility] 01:42:00 [facility] ECG 12-LEAD 2021-09-[address] [facility] 01:37:32 [facility] ECG 12-LEAD 2021-09-07 Unknown, Hl7 Doctor [facility] 01:37:32 [facility] ECG 12-LEAD 2021-09-07 Unknown, Hl7 Doctor [facility] 01:37:32 [facility] BASIC METABOLIC PANEL 2021-09-07 Shama [facility]enthal [facility] 01:05:00 [facility] MAGNESIUM 2021-09-[address] [facility] 01:05:00 [facility] PHOSPHORUS 2021-09-[address] [facility] 01:05:00 [facility] LACTATE DEHYDROGENASE (LDH) 2021-09-[address] [facility] 01:05:00 [facility] BILIRUBIN, DIRECT 2021-09-[address] [facility] 01:05:00 [facility] POCT-GLUCOSE METER 2021-09-[address] [facility] 23:58:00 [facility] POCT-GLUCOSE METER 2021-09-[address] [facility] 15:46:00 [facility] MRSA SCREEN 2021-09-06 Ukani, Nilam [facility] 12:58:00 [facility] POCT-GLUCOSE METER 2021-09-[address] [facility] 12:53:00 [facility] POCT-GLUCOSE METER 2021-09-[address] [facility] 07:29:00 [facility] URINALYSIS W/ MICROSCOPIC 2021-09-06 anti, Lynette [facility] 05:28:00 [facility] PROTEIN, RANDOM URINE 2021-09-06 anti, Lyntete [facility] 05:28:00 [facility] CREATININE, RANDOM URINE 2021-09-06 Maganti, Lynette [facility] 05:28:00 [facility] COMPLEMENT COMPONENT C4 2021-09-06 Maganti, Lynette [facility] 05:14:00 [facility] VITAMIN D, 25-HYDROXY 2021-09-06 Shama Rosenthalbonniel [facility] 05:14:00 [facility] TSH/FREE T4 IF INDICATED 2021-09-06 Ukani, Nilam [facility] 05:14:00 [facility] XR CHEST 1 VIEW PORTABLE / 2021-09-06 Kareem Calhoun [facility] B[facility] 02:18:00 [facility] BLOOD CULTURE 2021-09-[address] [facility] 02:06:00 [facility] CBC W/PLT COUNT & AUTO 2021-09-[address] [facility] DIFFERENTIAL 02:01:00 [facility] (CELLAVISION MANUAL DIFF) 2021-09-[address] [facility] 02:01:00 [facility] BLOOD CULTURE 2021-09-[address] [facility] 02:01:00 [facility] CBC W/PLT COUNT & AUTO 2021-09-[address] [facility] DIFFERENTIAL 02:01:00 [facility] LACTIC ACID, VENOUS 2021-09-[address] [facility] 02:01:00 [facility] PHOSPHORUS 2021-09-06 Ukani, Nilam [facility] 02:00:00 [facility] MAGNESIUM 2021-09-06 Ukani, Nilam [facility] 02:00:00 [facility] COMPREHENSIVE METABOLIC 2021-09-[address] [facility] PANEL 02:00:00 [facility] SARS-COV2/RT-PCR ([facility] & REF 2021-09-[address] [facility] 01:54:00 [facility] ECG 12-LEAD 2021-09-[address] [facility] 01:44:10 [facility] POCT-GLUCOSE METER 2021-09-[address] [facility] 01:04:00 [facility] BASIC METABOLIC PANEL 2021-09-05 Shama [facility]enthal [facility] 19:09:00 [facility] MAGNESIUM 2021-09-[address] [facility] 19:09:00 [facility] PHOSPHORUS 2021-09-[address] [facility] 19:09:00 [facility] POCT-GLUCOSE METER 2021-09-05 Galo, Shama Henzell [facility] 19:00:00 [facility] DOUBLE-STRANDED DNA (DSDNA) 2021-09-[address] [facility] ANTIBODY 16:26:00 [facility] FERRITIN 2021-09-[address] [facility] 16:26:00 [facility] ANTI-DNA TITER 2021-09-[address] [facility] 16:26:00 [facility] POCT-GLUCOSE METER 2021-09-[address] [facility] 12:11:00 [facility] POCT-GLUCOSE METER 2021-09-05 Shama Rosenthal Henzell [facility] 06:34:00 [facility] COMPREHENSIVE METABOLIC 2021-09-05 Ukani, Nilam [facility] PANEL 04:46:00 [facility] CBC (HEMOGRAM ONLY) 2021-09-05 Ukani, Nilam [facility] 04:46:00 [facility] CALCIUM, IONIZED 2021-09-[address] [facility] 04:46:00 [facility] BASIC METABOLIC PANEL 2021-09-05 Shama Rosenthall [facility] 00:40:00 [facility] MAGNESIUM 2021-09-05 Shama Rosenthal Henzell [facility] 00:40:00 [facility] PHOSPHORUS 2021-09-05 Mk Rosenth[address]l Henzell [facility] 00:40:00 [facility] POCT-GLUCOSE METER 2021-09-[address] [facility] 23:48:[address] [facility] [address] ABDOMEN/PELVIS WITH IV 2021-09-04 Ukani, Nilam [facility] CONTRAST 21:08:[address] [facility] [address] CHEST FOR PULMONARY 2021-09-04 Shama Rosenthal Henzell [facility] EMBOLUS 21:08:00 [facility] POCT-GLUCOSE METER 2021-09-04 Shama Rosenthal Henzell [facility] 18:12:00 [facility] CALCIUM 2021-09-04 Ukani, Nilam [facility] 14:09:00 [facility] POCT-GLUCOSE METER 2021-09-04 Shama Rosenthal Henzell [facility] 13:06:00 [facility] ECG 12-LEAD 2021-09-04 Uklon, Nilam [facility] 08:09:50 [facility] POCT-GLUCOSE METER 2021-09-[address] [facility] 06:04:00 [facility] CBC W/PLT COUNT & AUTO 2021-09-04 Nj, Nilam [facility] DIFFERENTIAL 04:12:00 [facility] COMPREHENSIVE METABOLIC 2021-09-04 Ukani, Nilam [facility] PANEL 04:12:00 [facility] MAGNESIUM 2021-09-04 Uklon, [facility]am [facility] 04:12:00 [facility] CBC W/PLT COUNT & AUTO 2021-09-04 Uklon, Nilam [facility] DIFFERENTIAL 04:12:00 [facility] URINE CULTURE 2021-09-04 Nj, Nilam [facility] 00:21:00 [facility] URINALYSIS W/ REFLEX URINE 2021-09-04 Nj, [facility] CULTURE 00:21:00 [facility] POCT-GLUCOSE METER 2021-09-[address] [facility] 00:14:00 [facility] POCT-GLUCOSE METER 2021-09-[address] [facility] 17:51:00 [facility] CBC W/PLT COUNT & AUTO 2021-09-03 Galo, Shama Evelial [facility] DIFFERENTIAL 16:56:00 [facility] METABOLIC 2021-09-03 Galo, Shama Juliuszell [facility] PANEL 16:56:00 [facility] CBC W/PLT COUNT & AUTO 2021-09-03 Galo, Shama Juliuszell [facility] DIFFERENTIAL 16:56:00 [facility] MAGNESIUM 2021-09-03 Nj, Nilam [facility] 16:56:00 [facility] XR ABDOMEN/KUB 1 VIEW 2021-09-03 Uklon, Nilam [facility] PORTABLE 16:05:00 [facility] XR CHEST 1 VIEW PORTABLE / 2021-09-03 Nj, [facility]am [facility] BEDSIDE 16:02:00 [facility] XR ABDOMEN/KUB 1 VIEW 2021-09-03 Sh[facility]enthall [facility] PORTABLE 12:50:00 [facility] 2021-09-03 Gabriel, Nilsa Gladys [facility] PANEL 05:02:00 [facility] PHOSPHORUS 2021-09-03 Uklon, Nilam [facility] 05:02:00 [facility] POCT-GLUCOSE METER 2021-09-02 Shama Ros[address] Evelial [facility] 22:13:00 [facility] POCT-GLUCOSE METER 2021-09-[address] [facility] 18:48:00 [facility] CREATININE, RANDOM URINE 2021-09-02 Bhairavarasu, [facility] 04:39:00 [facility] PROTEIN, RANDOM URINE 2021-09-02 Bhairavarasu, [facility] 04:39:00 [facility] POCT-GLUCOSE METER 2021-09-01 Shama Rosenthal Juliusbonniel [facility] 23:16:00 [facility] POCT-GLUCOSE METER 2021-09-[address] [facility] 18:08:00 [facility] HIGH SENSITIVITY TROPONIN I 2021-09-01 Ukani, Nilam [facility] 16:25:00 [facility] XR CHEST 1 VIEW PORTABLE / 2021-09-01 Uklon, [facility]am [facility] BEDSIDE 16:21:00 [facility] ECG 12-LEAD 2021-09-01 Unknown, Hl7 Doctor [facility] 15:41:33 [facility] ECG 12-LEAD 2021-09-01 Unknown, Hl7 Doctor [facility] 15:41:33 [facility] CBC W/PLT COUNT & AUTO 2021-09-01 Avu, [facility] DIFFERENTIAL 06:00:00 [facility] (CELLAVISION MANUAL DIFF) 2021-09-01 Bhadrianneu, [facility] 06:00:00 [facility] COMPREHENSIVE METABOLIC 2021-09-01 Jasielkev, Nilsa Gladys [facility] PANEL 06:00:00 [facility] PROTHROMBIN TIME/INR 2021-09-01 Ukani, [facility]am [facility] 06:00:00 [facility] PT/APTT 2021-09-01 Ukani, Nilam [facility] 06:00:00 [facility] CBC W/PLT COUNT & AUTO 2021-09-01 adrianneu, [facility] DIFFERENTIAL 06:00:00 [facility] T SPOT TB 2021-09-[address] [facility] 06:00:00 [facility] IMMUNOGLOBULIN A (IGA) 2021-09-[address] [facility] 06:00:00 [facility] POCT-GLUCOSE METER 2021-08-[address] [facility] 21:49:00 [facility] POCT-GLUCOSE METER 2021-08-[address] [facility] 17:13:00 [facility] POCT-GLUCOSE METER 2021-08-[address] [facility] 13:28:00 [facility] POCT-GLUCOSE METER 2021-08-[address] [facility] 08:41:00 [facility] MISCELLANEOUS LAB ORDER 2021-08-[address] [facility] 06:22:00 [facility] MISCELLANEOUS LAB ORDER 2021-08-[address] [facility] 05:16:00 [facility] ANTI-DARRIN AB (RNA, LACY) 2021-08-[facility] 05:14:00 [facility] CYCLIC CITRULLINATED PEPTIDE 2021-08-31 [facility], [facility] AB, IGG 05:14:00 [facility] CBC (HEMOGRAM ONLY) 2021-08-31 Nalam, Nilsa Gladys [facility] 05:14:00 [facility] PROTHROMBIN TIME/INR 2021-08-31 Ukani, [facility]am [facility] 05:14:00 [facility] PT/APTT 2021-08-31 Ukani, Nilam [facility] 05:14:00 [facility] RETICULOCYTE COUNT 2021-08-[address] [facility] 05:14:00 [facility] MISCELLANEOUS LAB ORDER 2021-08-[address] [facility] 05:13:00 [facility] COMPLEMENT COMPONENT C4 2021-08-[address] [facility] 05:13:00 [facility] FERRITIN 2021-08-31 Bhairavarasu, [facility] 05:13:00 [facility] RHEUMATOID FACTOR AB, REFLEX 2021-08-31 Bhairavaclarau, [facility] TO TITER 05:13:00 [facility] MAGNESIUM 2021-08-[address] [facility] 05:13:00 [facility] COMPREHENSIVE METABOLIC 2021-08-31 Gabriel, Nilsa Gladys [facility] PANEL 05:13:00 [facility] HC LAB HIV-1 AG W/HIV-1&2 AB 2021-08-31 [address] l [facility] 05:13:00 [facility] RPR 2021-08-[address] [facility] 05:13:00 [facility] RHEUMATOID FACTOR TITER 2021-08-31 adrianneu, [facility] 05:13:00 [facility] POCT-GLUCOSE METER 2021-08-[address] [facility] 21:08:00 [facility] POCT-GLUCOSE METER 2021-08-[address] [facility] 17:25:00 [facility] POCT-GLUCOSE METER 2021-08-30 Shama Rosenthal Henzell [facility] 12:38:00 [facility] POCT-GLUCOSE METER 2021-08-[address] [facility] 08:11:00 [facility] MAGNESIUM 2021-08-[address] [facility] 03:22:00 [facility] COMPREHENSIVE METABOLIC 2021-08-30 Gabriel, Nilsa Gladys [facility] PANEL 03:22:00 [facility] CBC (HEMOGRAM ONLY) 2021-08-30 Gabriel Nilsa Gladys [facility] 03:22:00 [facility] PROTHROMBIN TIME/INR 2021-08-30 Ukani, Nilam [facility] 03:22:00 [facility] PT/APTT 2021-08-30 Ukani, Nilam [facility] 03:22:00 [facility] C-REACTIVE PROTEIN 2021-08-30 Ukani, Nilam [facility] 03:22:00 [facility] DOUBLE-STRANDED DNA (DSDNA) 2021-08-30 Ukani, Nilam [facility] ANTIBODY 03:22:00 [facility] LIPASE 2021-08-[address] [facility] 03:22:00 [facility] ANTI-DNA TITER 2021-08-30 Ukani, Nilam [facility] 03:22:00 [facility] POCT-GLUCOSE METER 2021-08-29 Nalam, Nilsa Gladys [facility] 21:37:00 [facility] POCT-GLUCOSE METER 2021-08-29 Nalam, Nilsa Gladys [facility] 17:43:00 [facility] FIBRINOGEN 2021-08-29 [place] [place] [facility] 13:31:[address] [facility] PHOSPHATIDYLSERINE ABS (IGG, 2021-08-29 [place] [place] [facility] IGM) 13:31:[address] [facility] HEREDITARY HEMOCHROMATOSIS 2021-08-[address] [facility] 13:31:00 [facility] POCT-GLUCOSE METER 2021-08-29 Nalam, Nilsa Gladys [facility] 11:43:00 [facility] POCT-GLUCOSE METER 2021-08-29 Nalam, Nilsa Gladys [facility] 08:43:00 [facility] SARS-COV2/RT-PCR (HS & REF 2021-08-[address] [facility] LABS) 04:44:00 [facility] MAGNESIUM 2021-08-[address] [facility] 04:41:00 [facility] COMPREHENSIVE METABOLIC 2021-08-29 Gabriel, Nilsa Gladys [facility] PANEL 04:41:00 [facility] PROTHROMBIN TIME/INR 2021-08-29 Ukani, Nilam [facility] 04:41:00 [facility] LIPASE 2021-08-[address] [facility] 04:41:00 [facility] PHOSPHORUS 2021-08-29 [place] 04:41:[address] [facility] (MANUAL DIFFERENTIAL) 2021-08-29 Gabriel Nilsa Gladys [facility] 04:40:00 [facility] CBC (HEMOGRAM ONLY) 2021-08-[address] [facility] 04:40:00 Medical Center PERIPHERAL BLOOD SMEAR - 2021-08-[address] [facility] PATHOLOGIST REVIEW 04:40:00 [facility] POCT-GLUCOSE METER 2021-08-[address] [facility] 04:30:00 [facility] ACTIN (SMOOTH MUSCLE) 2021-08-28 Gordo, Rajdaphne Lio [facility] ANTIBODY, IGG 14:55:00 [facility] ANTI-MITOCHONDRIAL AB, 2021-08-28 Gordo, Raja Lio [facility] REFLEX TO TITER 14:55:00 [facility] ANTI-NUCLEAR ANTIBODY (STU) 2021-08-28 Gordo, Raja Lio [facility] 14:55:00 [facility] CERULOPLASMIN 2021-08-28 Gordo, Raja Lio [facility] 14:55:00 [facility] Center FERRITIN 2021-08-28 Gordo, Raja Lio [facility] 14:55:00 [facility] Center HEPATITIS A ANTIBODY, IGG 2021-08-28 Gordo, Rik [facility] 14:55:00 [facility] Center HEPATITIS B CORE ANTIBODY, 2021-08-28 Gordo, Raja Lio [facility] TOTAL 14:55:00 Medical Center HEPATITIS B SURFACE ANTIBODY 2021-08-28 Gordo, Rik M[facility]dezir [facility] 14:55:00 [facility] HEPATITIS B SURFACE ANTIGEN 2021-08-28 Gordo, Raja Lio [facility] 14:55:00 Medical Center HEPATITIS C ANTIBODY 2021-08-28 Gordo, Piyusha Lio [facility] 14:55:00 [facility] IMMUNOGLOBULIN G (IGG) 2021-08-28 Gordo, Raja Lio [facility] 14:55:00 [facility] IRON, TIBC, % SAT. (WITHOUT 2021-08-28 Gordo Piyusha Lio [facility] FERRITIN) 14:55:00 Medical Center STU TITER AND PATTERN 2021-08-28 Gordo, Raja [facility] 14:55:00 [facility] Center MITOCHONDRIAL AB SCREEN 2021-08-[address]io [facility] 14:55:00 [facility] MITOCHONDRIAL AB TITER 2021-08-[address] Car[address]io [facility] 14:55:00 [facility] MISCELLANEOUS LAB ORDER 2021-08-28 Gordo, Rik Lio [facility] 14:10:00 [facility] [id number]\\, SERUM 2021-08-28 Gordo, Rik Méndezir [facility] 14:10:00 [facility] RAPID DRUG SCREEN, URINE 2021-08-28 Gordo, Rik Méndezir [facility] 13:54:00 [facility] POCT-GLUCOSE METER 2021-08-28 Nalam, Nilsa Gladys [facility] 12:20:00 [facility] POCT-GLUCOSE METER 2021-08-28 Nalam, Nilsa Gladys [facility] 08:07:00 [facility] MAGNESIUM 2021-08-[address] [facility] 04:38:00 [facility] COMPREHENSIVE METABOLIC 2021-08-28 Nalam, Nilsa Gladys [facility] PANEL 04:38:00 [facility] CBC (HEMOGRAM ONLY) 2021-08-28 Nalam, Nilsa Gladys [facility] 04:38:00 [facility] POCT-GLUCOSE METER 2021-08-27 Nalam, Nilsa Gladys [facility] 22:18:00 [facility] MR ABDOMEN WITHOUT IV 2021-08-27 Nalam, Nilsa Gladys [facility] CONTRAST MRCP 17:55:00 [facility] MR ABDOMEN WITH & WITHOUT IV 2021-08-27 Nalam, Nilsa Gladys [facility] CONTRAST 17:55:00 [facility] MAGNESIUM 2021-08-[address] [facility] 05:38:00 [facility] COMPREHENSIVE METABOLIC 2021-08-27 Nalam, Nilsa Gladys [facility] PANEL 05:38:00 [facility] CBC (HEMOGRAM ONLY) 2021-08-27 Nalam, Nilsa Gladys [facility] 05:38:00 [facility] URINALYSIS W/ REFLEX URINE 2021-08-[address] [facility] CULTURE 04:24:00 [facility] BLOOD CULTURE 2021-08-[address] [facility] 04:15:00 [facility] BLOOD CULTURE 2021-08-[address] [facility] 01:51:00 [facility] CBC W/PLT COUNT & AUTO 2021-08-[address] [facility] DIFFERENTIAL 01:50:00 [facility] (CELLAVISION MANUAL DIFF) 2021-08-[address] [facility] 01:50:00 [facility] CBC W/PLT COUNT & AUTO 2021-08-[address] [facility] DIFFERENTIAL 01:50:00 [facility] COMPREHENSIVE METABOLIC 2021-08-[address] [facility] PANEL 01:50:00 [facility] MAGNESIUM 2021-08-[address] [facility] 01:50:00 [facility] TRIGLYCERIDES 2021-08-[address] [facility] 01:50:00 [facility] LIPASE 2021-08-[address] [facility] 01:50:00 [facility] PROTHROMBIN TIME/INR 2021-08-26 [facility]ell [facility] 01:49:00 [facility] IGG SUBCLASS-4 ONLY 2021-08-26 Mervin Vernellmellissa [facility] 01:49:00 [facility] Plan of Care Planned Activity Planned Date [...] Luke s Test 00:00:00 (procedure) [code = [facility] [id number]] Future Scheduled 2024-12-[address] [facility] Test 00:00:00 (procedure) [code = [facility] [id number]] Future Scheduled 2024-12-[address] [facility] Test 00:00:00 (procedure) [code = [facility] [id number]] Future Scheduled 2024-12-[address] [facility] Test 00:00:00 (procedure) [code = [facility] [id number]] Future Scheduled 2022-01-18 INFLUENZA VACCINE (#1) C [...] (2 - Jaja risk series)] Future Scheduled [address] [facility] Test 00:00:00 [facility] Scre[facility] (12+) [code = Tobacco Cessation Counseling and Screening (12+)] Encounters Start End Encounter Admission Attending Care Care Encounter Source Date/Time Date/Time Type Type Clinicians Facility Department ID 2022-02-21 Outpatient 3 [id number] [facility] REF [id number] [facility] 15:15:18 [facility] [place] 2022-02-09 Outpatient 3 VJ CROUCH CVA [id number] [facility] 10:16:03 [facility] [place] 2022-02-07 Outpatient 3 VJ CROUCH CVA [id number] [facility] 12:02:45 [facility] [place] 2022-02-06 Outpatient 3 [id number] [facility] REF [id number] [facility] 12:16:49 [facility] [place] [id number] 00:[facility]00 Encounter [facility] 2021-12-07 [id number] 00:00:00 Encounter [facility] 2021-10-09 Outpatient 3 VJ CROUCH OT [id number] [facility] 10:19:53 WILLARD ss [facility] [place] 2021-10-08 Outpatient 3 VJ CROUCH OT [id number] [facility] 16:06:37 [facility] [place] 2021-10-05 Outpatient 3 [id number] ENC REF [id number] [facility] 08:52:05 ss [facility] [place] 2021-10-04 Outpatient 3 [id number] ENC REF [id number] [facility] 08:39:39 [facility] [place] 2021-09-25 Outpatient 3 [id number] ENCSL OT [id number] [facility] 10:41:49 [facility] [place] 2021-09-04 Outpatient 3 [id number] ENCSL REF [id number] [facility] 15:32:58 [facility] [place] 2021-09-04 Outpatient 3 [id number] ENCPL REF [id number] [facility] 08:59:04 0418 [facility] [place] 2021-09-02 Outpatient 3 [id number] ENCPL REF [id number] [facility] 11:35:01 0416 [facility] [place] 2021-09-01 Outpatient 3 [id number] ENCPL REF [id number] [facility] 14:10:28 0415 [facility] [place] 2022-03-16 2022-03-18 Outpatient U JUAN JOSÉ GARCIA [facility] [id number] Univers 01:27:00 18:08:00 ity of [facility] 2022-03-16 2022-03-18 [facility] Estrada Sinclair [id number] Univers 01:27:00 18:08:00 Encounter Juan José Garcia [id number] ity [facility] [id number] [place] [id number] [facility] [address] 2022-03-16 2022-03-16 Orders USMAN [id number] Univers 00:00:00 00:00:00 Only Unassigned, [place] [id number] ity of [facility] [id number] [facility] [id number] [facility] [address] 2022-03-14 2022-03-14 Emergency X [facility] ERT [id number] Univers 13:27:00 18:30:00 ANETA lovelace of [facility] 2022-03-14 2022-03-14 Emergency [facility] [id number] Univers 13:27:00 18:30:00 Aneta WHATLEY [id number] i ty [facility] [id number] [facility] [id number] [facility] [address] 2022-02-18 2022-03-12 [facility] [id number] 23:00:00 16:50:00 Encounter Silvio Mccray [address] [place] [address] 2022-02-18 2022-03-12 Inpatient ER [facility] Emergency [id number] [facility] 23:00:00 16:50:00 SILVIO 7 2022-03-08 2022-03-08 Orders [facility] [id number] 00:00:00 00:00:00 Only [facility] 2022-03-08 2022-03-08 Orders [facility] [id number] 00:00:00 00:00:00 Only [facility] 2022-02-11 2022-02-21 Inpatient 3 VJ CROUCH [id number] [facility] 21:26:00 11:05:00 WILLARD [id number] [facility] [place] 2022-02-20 2022-02-20 Outpatient EL ARNOL Crouch [facility] [id number] [facility] 10:18:00 10:18:00 Willard [facility] 2022-01-25 2022-02-11 Hospital Gricelda Arteaga [facility] [id number] 04:38:00 21:00:00 Encounter Nilsa Rios [facility], [facility] [place], [facility] 2022-01-25 2022-02-11 Inpatient [facility] Surgery [id number] [facility] 04:38:00 21:00:00 [facility] 2022-02-07 2022-02-07 Anesthesia Chelliah, Premala [facility] [id number] 12:47:00 16:04:00 Event [place], [facility] 2022-02-07 2022-02-07 Anesthesia Chelliyuliya, Premala [facility] [id number] 12:47:00 16:04:00 Event [place], [facility] 2022-02-07 2022-02-07 Surgery Lissette, [facility] [id number] 11:56:00 15:22:00 [facility] 2022-02-07 2022-02-07 Surgery Lissette, [facility] [id number] 11:56:00 15:22:00 [facility] 2022-02-02 2022-02-02 Surgery Willard, [facility] [id number] 12:00:00 13:00:00 [facility] 2022-02-02 2022-02-02 Surgery Willard, [facility] [id number] 12:00:00 13:00:00 [facility] 2022-02-02 2022-02-02 Anesthesia Jason, [facility] [id number] 11:37:00 12:37:00 Event Millie [facility] 2022-02-02 2022-02-02 Anesthesia Jason, [facility] [id number] 11:37:00 12:37:00 Event [facility] 2022-01-25 2022-01-25 Outpatient [facility] [id number] [facility] 04:38:00 23:59:00 [facility] 2022-01-25 2022-01-25 Outpatient [place] [id number] [facility] 04:38:00 04:38:00 [facility] 2022-01-25 2022-01-25 Travel [facility] [id number] [facility] 00:00:00 00:00:00 [facility] 2022-01-25 2022-01-25 Travel [facility] [id number] [facility] 00:00:00 00:00:00 [facility] 2021-12-07 2021-12-25 [facility] Khushi Goode [facility] [id number] 12:15:00 21:00:00 [facility] 2021-12-07 2021-12-25 [facility] [id number] 12:15:00 21:00:00 Encounter Bethany Durham [facility] 2021-12-07 2021-12-25 Inpatient ER MARVA, [facility] Emergency [id number] [facility] 12:15:00 21:00:00 BETHANY 2021-12-11 2021-12-11 Outside Marva [facility] [id number] 00:00:00 00:00:00 Orders Bethany Roberts [facility] 2021-12-11 2021-12-11 Outside Marva [facility] [id number] 00:00:00 00:00:00 Orders Bethany Roberts [facility] 2021-12-08 2021-12-08 Travel [facility] [id number] [facility] 00:00:00 00:00:00 [facility] 2021-12-08 2021-12-08 Travel [facility] [id number] [facility] 00:00:00 00:00:00 [facility] 2021-12-07 2021-12-07 Travel [facility] [id number] [facility] 00:00:00 00:00:00 [facility] 2021-12-07 2021-12-07 Travel [facility] [id number] [facility] 00:00:00 00:00:00 [facility] 2021-10-10 2021-10-27 Inpatient 3 VJ CROUCH OT [id number] [facility] 15:00:00 13:33:00 WILLARD [id number] [facility] itation [place] 2021-10-23 2021-10-23 Outpatient NICHO CrouchKEAGANKW [facility] [id number] [facility] 13:20:00 13:20:00 Willard [facility] 2021-10-20 2021-10-20 Outside [facility] [id number] 00:00:00 00:00:00 Orders [facility] 2021-10-20 2021-10-20 Outside [facility] [id number] 00:00:00 00:00:00 Orders [facility] 2021-10-19 2021-10-19 Outpatient LISSETTE [facility] [id number] [address] [place] [address] 13:28:45 14:35:41 AMADOSHADY [facility] 2021-10-19 2021-10-19 Outpatient [facility] [id number] [facility] 00:00:00 00:00:00 DOUG 2021-09-27 2021-10-10 [facility] Kimmy Nunn [facility] [id number] 17:55:00 14:32:00 Encounter [facility] 2021-09-27 2021-10-10 Hospital ER Kimmy Nunn [facility] [id number] 17:55:00 14:32:00 Encounter Cy Correia Heather [facility] 2021-09-27 2021-10-10 Inpatient ER MAGDA [facility] Emergency [id number] [facility] 17:55:00 14:32:00 [facility] 2021-10-10 2021-10-10 Outpatient [facility] [id number] [facility] 00:00:00 00:00:00 DOUG 2021-10-02 2021-10-02 Anesthesia Aravind Harley [facility] [id number] 17:02:00 19:27:00 [facility] 2021-10-02 2021-10-02 Anesthesia Aravind Hraley [facility] [id number] 17:02:00 19:27:00 Event Vicki [facility] 2021-10-02 2021-10-02 Surgery [facility], [facility] [id number] 16:30:00 19:12:00 [facility] 2021-10-02 2021-10-02 Surgery [facility], [facility] [id number] 16:30:00 19:12:00 [facility] 2021-09-28 2021-09-28 Outpatient [facility] [id number] [facility] 00:00:00 23:59:00 Lacie allen of Medicin e 2021-09-22 2021-09-27 Inpatient 3 VJ CR[facility] [id number] [facility] 19:40:00 16:58:00 [facility] [place] 2021-09-27 2021-09-27 Outpatient NICHO KEAGAN [facility] [id number] [facility] 13:42:00 13:42:00 [place] 14 [facility] 2021-08-25 2021-09-22 [facility] Mana Dow [facility] [id number] [facility] 23:24:00 18:50:[address] [facility], [facility], [facility], Rose Jones, Oren Cuellar, Rebecca Benitez, Irina 2021-08-25 2021-09-22 [facility] ER Mana Dow [facility] [id number] [facility] 23:24:00 18:50:[address] [facility], [facility], [facility], Rose Jones, Oren Cuellar, Rebecca Benitez, Irina 2021-08-25 2021-09-22 Inpatient ER ELI [facility] [id number] [facility] 23:24:00 18:50:00 IRINA 2021-09-07 2021-09-07 Outpatient CHAPIS OSPINA [id number] [facility] 00:00:00 00:00:00 BEAR deleon 2021-09-04 2021-09-04 Outpatient [facility] [id number] [facility] 00:00:00 23:59:00 Paco 2021-09-01 2021-09-01 Orders [facility] [id number] 00:00:00 00:00:00 Only [facility] 2021-09-01 2021-09-01 Orders [facility] [id number] 00:00:00 00:00:00 Only [facility] 2021-08-26 2021-08-26 Travel [facility] [id number] [facility] 00:[facility]:00 [facility] 2021-08-26 2021-08-26 Travel [facility] [id number] [facility] 00:[facility]:00 [facility] Results Test Description Test Time Test Comments Results Result Comments Source BLOOD CULTURE 2022-05-25 10:06:46 Test Item Value Reference Range Interpretation Comme nts CULTURE (BEAKER) (test code = 1095) No growth in 5 days Specimen received, ordered, and processed during a system downtime event in February 2022Urine [id number] 13:52:35 Test Item Value Reference Range Interpretation Comments Result (test code = No growth 6463-4) IDALIA (test code = IDALIA) Specimen Received and Processed during Downtime in February 2022. [facility] [id number] 13:52:35 Test Item Value Reference Range Interpretation Comments CULTURE (BEAKER) (test code = 1095) No growth Specimen Received and Processed during Downtime in February 2022.COMPREHENSIVE METABOLIC [id number] 08:39:02 Test Item Value Reference Range Interpretation Comments TOTAL PROTEIN 7.1 gm/dL 6.0-8.5 (BEAKER) (test code = 770) ALBUMIN (BEAKER) 4.1 g/dL 3.5-5.0 (test code = 1145) ALKALINE 60 U/L 30-115 PHOSPHATASE (BEAKER) (test code = 346) BILIRUBIN TOTAL 0.2 mg/dL 0.1-1.2 (BEAKER) (test code = 377) SODIUM (BEAKER) 136 meq/L 135-148 (test code = 381) POTASSIUM (BEAKER) 3.6 meq/L (test code = 379) CHLORIDE (BEAKER) 103 meq/L 98-106 (test code = 382) CO2 (BEAKER) (test 25 meq/L code = 355) BLOOD UREA 8 mg/dL 10-26 L NITROGEN (BEAKER) (test code = 354) CREATININE 0.59 mg/dL 0.50-1.20 (BEAKER) (test code = 358) GLUCOSE RANDOM 164 mg/dL (BEAKER) (test code = 652) CALCIUM (BEAKER) 8.7 mg/dL 8.5-10.5 (test code = 697) AST (SGOT) 19 U/L 5-40 (BEAKER) (test code = 353) ALT (SGPT) 19 U/L 5-50 (BEAKER) (test code = 347) EGFR (BEAKER) 140 Interpretatio n of eGFR [...] not appl icable for dialysis patien ts Clostridium difficile GDH [id number] 13:58:24 Test Item Value Reference Range Interpretation Comments C. Difficle Toxin Negative Negative (test code = 7824346228) C. Difficile GDH Negative Negative No indicati on of Antigen (test code = Clostri dium 1461842585) difficile infection and n o colonization. Discontinue enteric isolati on and therapy. IDALIA (test code = Testing performed IDALIA) by Alere Rapid Cassette Assay. For GDH, published sensitivity of the assay is 98.7% compared to cytotoxicity testing. For Toxin AB, published sensitivity is 87.8% and specificity 99.4% compared to cytotoxicity testing.Verificati on of kit performance was done by the [facility] prior to clinical use. Lab Interpretation Normal (test code = 07582-8) [facility] DIFFICILE GDH [id number] 13:58:24 Test Item Value Reference Range Interpretation Comments CDT TOXIN (test code Negative Negative = 9869968687) CDT GDH ANTIGEN (test Negative Negative No ind ication of code = 1077830891) Clostridi um difficile infection and n o colonization. Discontinue ent felicity isolation and t herapy. Testing performed by Alere Rapid Cassette Assay. For GDH, published sensitivity of the assay is 98.7% compared to cytotoxicity testing. For Toxin AB, published sensitivity is 87.8% and specificity 99.4% compared to cytotoxicity testing.Verification of kit performance was done by the [facility] prior to clinical use.GI Pathogen Profile by [id number] 08:47:53 Test Item Value Reference Range Interpretation Comments CAMPYLOBACTER PCR (test Not detected Not detected code = 71137-7) PLESIOMONAS SHIGELLOIDES Not detected Not detected (PCR) (test code = 26506-9) SALMONELLA (PCR) (test Not detected Not detected code = 19316-3) YERSINIA ENTEROCOLITICA Not detected Not detected (PCR) (test code = 31132-2) VIBRIO CHOLERAE (PCR) Not detected Not detected (test code = 47173-8) ENTEROAGGREGATIVE E. Not detected Not detected COLI (EAEC) BY PCR (test code = 41092-6) ENTEROPATHOGENIC E. COLI Not detected Not detected (EPEC) BY PCR (test code = 74559-8) ENTEROTOXIGENIC E. COLI Not detected Not detected (ETEC) LT/ST BY PCR (test code = 67883-8) SHIGA-LIKE Not detected Not detected TOXIN-PRODUCING E. COLI (STEC) STX1/STX2 (test code = 30270-8) E. COLI O157 (PCR) (test Not detected Not detected code = 20817-1) SHIGELLA/ENTEROINVASIVE Not detected Not detected E. COLI (EIEC) BY PCR (test code = 08223-5) CRYPTOSPORIDIUM (PCR) Not detected Not detected (test code = 29697-0) CYCLOSPORA CAYETANENSIS Not detected Not detected (PCR) (test code = 56786-8) ENTAMOEBA HISTOLYTICA Not detected Not detected (PCR) (test code = 07429-3) GIARDIA LAMBLIA (PCR) Not detected Not detected (test code = 79830-9) ADENOVIRUS F 40/41 (PCR) Not detected Not detected (test code = 30325-6) ASTROVIRUS (PCR) (test Not detected Not detected code = 39144-8) NOROVIRUS GI/GII (PCR) (test code = 28794-0) ROTAVIRUS A (PCR) (test Not detected Not detected code = 64966-6) SAPOVIRUS (I, II, IV, V) Not detected Not detected BY PCR (test code = 96044-3) VIBRIO Not detected Not detected (PARAHAEMOLYTICUS, VULNIFICUS) (test code = 55555-4) IDALIA (test code = IDALIA) Other viruses, parasites and bacteria not targeted by this PCR panel cannot be excluded; therefore clinical correlation and follow up of serology, culture results, and other molecular studies is required. The results are not intended to be used as the sole means for clinical diagnosis or patient management decisions. This sample was tested at the [facility] using the [employer]nek[employer] Gastrointestinal Panel. It is FDA cleared and has been verified and approved by the [facility] for clinical use. This laboratory is CLIA-certified and [employer] (CAP)-accredited to perform high complexity testing. [facility] PROFILE BY [id number] 08:47:53 Test Item Value Reference Range Interpretation Comments [...] Not detected BY PCR (test code = 0518069) ENTEROPATHOGENIC E. COLI (EPEC) Not detected Not detected BY PCR (test code = 20151222) ENTEROTOXIGENIC E. COLI (ETEC) Not detected Not detected LT/ST BY PCR (test code = 8502881) SHIGA-LIKE TOXIN-PRODUCING E. Not detected Not detected COLI (STEC) PCR (test code = 7582673) E. COLI O157 (PCR) (test code = Not detected Not detected 20151225) SHIGELLA/ENTEROINVASIVE E. COLI Not detected Not detected (EIEC) BY PCR (test code = 9289579) CRYPTOSPORIDIUM (PCR) (test code Not detected Not [...] Not detected 20160122) NOROVIRUS GI/GII (PCR) (test code = 4723350) ROTAVIRUS A (PCR) (test code = Not detected Not detected 20160124) SAPOVIRUS (I, II, IV, V) BY PCR Not detected Not detected (test code = 7286176) VIBRIO (PARAHAEMOLYTICUS, Not detected Not detected VULNIFICUS) (test code = 4224436) Other viruses, parasites and bacteria not targeted by this PCR panel cannot be excluded; therefore clinical correlation and follow up of serology, culture results, and other molecular studies is required. The results are not intended to be used as the sole means for clinical diagnosis or patient management decisions. This sample was tested at the [facility] using the [employer] Gastrointestinal Panel. It is FDA cleared and has been verified and approved by the [facility] for clinical use. This laboratory is CLIA-certified and College ofAmerican Pathologists (CAP)-accredited to perform high complexity testing.AFB culture + smear (non-sputum)2022-03-29 15:57:56 Test Item Value Reference Range Interpretation Comments Result (test code = No acid-fast bacilli 6463-4) isolated in 42 days AFB Smear (test code = No acid fast bacilli 32756-4) seen [facility] (NON-SPUTUM)2022-03-29 15:57:56 Test Item Value Reference Range Interpretation Comments CULTURE (BEAKER) (test No acid-fast bacilli code = 1095) isolated in 42 days AFB SMEAR (BEAKER) No acid fast bacilli (test code = 994) seen Fungus culture + [id number] 21:09:03 Test Item Value Reference Range Interpretation Comments Result (test code = No fungus isolated in 6463-4) 28 days Fungus Smear (test No fungi seen code = 1406) [facility] + [id number] 21:09:03 Test Item Value Reference Range Interpretation Comments CULTURE (BEAKER) (test No fungus isolated in code = 1095) 28 days FUNGUS SMEAR (BEAKER) No fungi seen (test code = 1406) COMP. METABOLIC PANEL (82717)2022-03-14 20:23:20 Test Item Value Reference Range Interpretation Comments NA (test code = 139 mmol/L 135-145 3895968845) K (test code = 4.4 mmol/L 3.5-5.0 2438918776) CL (test code = 98 mmol/L 98-108 7220403036) CO2 TOTAL (test code 30 mmol/L 23-31 = 7347015937) AGAP (test code = 2-16 9463326906) BUN (test code = 16 mg/dL 7-23 5548222470) GLUCOSE (test code = 104 mg/dL 70-110 0738038258) CREATININE (test code 0.64 mg/dL 0.50-1.04 = 2424683095) TOTAL BILI (test code 0.5 mg/dL 0.1-1.1 = 0873037201) CALCIUM (test code = 10.0 mg/dL 8.6-10.6 7042548432) T PROTEIN (test code 8.1 g/dL 6.3-8.2 = 3678347433) ALBUMIN (test code = 4.4 g/dL 3.5-5.0 6857172563) ALK PHOS (test code = 98 U/L 34-122 4866642886) ALTv (test code = 31 U/L 5-35 1742-6) AST(SGOT) (test code 33 U/L 13-40 = 2614151506) eGFR (test code = mL/min/1.73m2 9067432350) IDALIA (test code = IDALIA) Association of [...] or urine or abnormalities in imaging tests). [facility] 20:23[facility]20 Test Item Value Reference Range Interpretation Comments LIPASE (test code = 2832320664) 105 U/L 0-220 Lab Interpretation (test code = Normal 16858-5) [facility]viewCB WITH [id number] 20:11:38 Test Item Value Reference Range Interpretation Comments WBC (test code = See_Comment [Automated 6690-2) message] The sy stem which generated this result transmitted reference range : 4.30 - 11.10 10*3/?L. The reference range was not used to interpret this result as normal/abnormal . RBC (test code = See_Comment H [Automated 789-8) message] The sy stem which generated this [...] RDW-SD (test code = 48.9 fL 39.0-49.9 72826-9) RDW-CV (test code = 17.2 % 12.0-15.5 H 788-0) PLT (test code = See_Comment [Automated 777-3) message] The sy stem which generated this result transmitted reference range : 166 - 358 10*3/ ?L. The reference r colby was not used to interpret this result as normal/abnormal . MPV (test code = 10.1 fL 9.5-12.9 37326-2) NRBC/100 WBC (test See_Comment [Automat ed code = 8791655326) message] The system which generated this result transmitted reference range : 0.0 - 10.0 /100 WBCs. The refer ence range was not u sed to interpret th is result as normal/abnormal . NRBC x10^3 (test code See_Comment [Auto mated = 2116109142) message] The s ystem which generated this result transmitted reference range : 10*3/?L. The reference range was not used to interpret this result as normal/abnormal . GRAN MAT (NEUT) % 76.3 % (test code = 770-8) IMM GRAN % (test code 0.50 % = 0334206638) LYMPH % (test code = 14.1 % 736-9) MONO % (test code = 6.4 % 5905-5) EOS % (test code = 1.7 % 713-8) BASO % (test code = 1.0 % 706-2) GRAN MAT x10^3(ANC) 7.94 10*3/uL 1.88-7.09 H (test code = 6141735074) IMM GRAN x10^3 (test 0.05 10*3/uL 0.00-0.06 code = 0238985730) LYMPH x10^3 (test code 1.46 10*3/uL 1.32-3.29 = 731-0) MONO x10^3 (test code 0.66 10*3/uL 0.33-0.92 = 742-7) EOS x10^3 (test code = 0.18 10*3/uL 0.03-0.39 711-2) BASO x10^3 (test code 0.10 10*3/uL 0.01-0.07 H = 704-7) Lab Interpretation Abnormal (test code = 12596-9) [facility]view[facility] MET[facility]OLIC [id number] 06:05:57 Test Item Value Reference Range Interpretation [...] not appl icable for dialysis patien ts Railroad Detective ID - PIJOVI LOperator ID - PIJOVI [...] 0-0 (BEAKER) (test code = 413) CT, [id number] 09:26:00Unlisted Reason for Exam - Click Yes and Enter Reason Below->NoIs this for enterography?->NoWill this procedure require oral contrast?->Yes [facility] 2000 Sex: MFINAL [...] region.Gastric wall thickening likely reactive. Signed: Cira Doradoepceferino Verified Date/Time: 03/11/2022 09:26:38 Reading Location: [address] Transitional Reading Room BASIC METABOLIC [id number] 06:38:12 Test Item Value Reference Range Interpretation [...] not appl icable for dialysis patien ts Railroad Detective ID - ADMINCBC W/PLT COUNT & AUTO [id number] 05:54:20 Test Item Value Reference Range Interpretation [...] = 2801) RAD, CHEST, 1 VIEW, NON [id number] 15:36:0015T-10 [facility] 2000 Sex: MFINAL [...] Garcia Verified Date/Time: 03/06/2022 15:36:20 Reading Location: [address] Reading [place], [id number] 09:42:00Pain. Hx LUQ collection assess for possible to drain now as well. [facility] : 2000 Sex: MFINAL[address]PORT CT of the abdomen and pelvis History: [...] adrenal glands demonstrate no significant abnormalities. The spleen is prominent and contains multiple calcified granulomas, [...] and splenic vein remain patent. Please note evaluationof bowel is limited without the use of [...] component of the collection abuts the greater curv ature of the stomach. Consider GI consultation for possible endoscopic drainage if clinically indicated. Additional stable findings as above Signed: Bony Page MDReport Verified Date/Time: 03/01/2022 09:42:02 [place], ASPIRATION/[id number] 16:11:00[facility] : 2000 Sex: MFINAL [...] of approximately 3 cc of Isovue-300 contrast. [employer] Set Up Mechanic images saved in the patient's medical record. [...] of approximately 3 cc of Isovue-300 contrast. [employer] Mechanic images saved in the patient's medical record. [...] MDReport Verified Date/Time: 02/27/2022 16:11:07 Reading Location: [facility] C013X Ortho Consult Reading Room MR, EXTREMITY, LOWER, HIP JOINT, WITHOUT CONTRAST, [id number] 15:21:00 [facility] 2000 Sex: MFINAL REPORT MRI OF THE LEFT HIP HISTORY: Left hip pain, avascular necrosis, osteoarthritis COMPARISON: CT pelvis of 02/05/2022 TECHNIQUE: Multiplanar multisequence MRI of the left hip wasperformed without contrast. Examination included coronal large umrlh-sk-slav sequences of the pelvisand bilateral hips as well as dedicated small dmaad-xh-tqod unilateral axial and sagittal oblique sequences of [...] MR, EXTREMITY, LOWER, HIP JOINT, WITHOUT CONTRAST, [id number] 15:17:00 [facility] : 2000 Sex: MFINAL REPORT MRI OF THE RIGHT HIP HISTORY: Right hip pain, avascular necrosis, arthritis COMPARISON: CT pelvis of 02/05/2022 TECHNIQUE: Multiplanar multisequence MRI of the right hip was performed without contrast. Examination included coronal large jzubf-nw-gvlx sequences of the pelvis and bilateral hips as well as dedicated small xzzhc-zs-yhco unilateral axial and sagittal oblique sequences of [...] the right femoral head. Signed: Robert Yeung Verified Date/Time: 02/25/2022 15:17:32 RAD, HIPS, 2 VIEWS, [id number] 15:03:00 [facility] 2000 Sex: MFINAL [...] the hips. No definite avascular necrosis. Signed: Horn, Yash MDReport Verified Date/Time: 02/24/2022 15:03:53 Reading Location: [facility] B1 C013Y CT Body Reading Room - CT ABD PELVIS W/O CONT 2022-02-20 12:09:00 [facility] 2000 Sex: M FAX: Willard Vaughn Jr [phone] [place]: St: REG Name: VANGIE OVALLE [facility] : 2000 Age/S: 22/M [address] Unit: [id number] Loc: [place] [address] Phys: Willard Crouch Jr, MD Acct: [id number] Dis Date: Status: REG CLI PHONE #: [phone] Exam Date: 02/20/2022 1115 FAX #: [phone] Reason: FREQUENT BM EXAMS: CPT CODE: [id number] CT ABD PELVIS W/O CONT 70465 EXAM: - CT ABD PELVIS W/OCONT INDICATION: FREQUENT BM TECHNIQUE: CT of the [...] 1 Signed Report(CONTINUED) FAX: Willard Vaughn Jr [phone] [place]: St: REG Name: VANGIE OVALLE [facility] : 2000 Age/S: 22/M [address] Unit: [id number] Loc: [place] [address] Phys: Willard Crouch Jr, MD Acct: [id number] Dis Date: Status: REG CLI PHONE #: [phone] Exam Date: 02/20/2022 1115 FAX #: [phone] Reason: FREQUENT BM EXAMS: CPT CODE: [id number] CT ABD PELVIS W/O CONT 55434 (Continued) Genitourinary:Urinary bladder appears to be mildly [...] JozefR.AH26 PAGE 2 Signed ReportDOUBLE-STRANDED DNA (DSDNA) [id number] 12:26:46 Test Item Value Reference Range Interpretation Comments ANTI-DNA DS (BEAKER) (test code = Negative Negative 1055) Anaerobic [id number] 09:53:02 Test Item Value Reference Range Interpretation Comments Result (test code = No anaerobes isolated 6463-4) [facility] [id number] 09:53:02 Test Item Value Reference Range Interpretation Comments Result (test code = No anaerobes isolated 6463-4) [facility] [id number] 09:53:02 Test Item Value Reference Range Interpretation Comments Result (test code = No anaerobes isolated 6463-4) [facility] [id number] 09:53:02 Test Item Value Reference Range Interpretation Comments CULTURE (BEAKER) (test No anaerobes isolated code = 1095) COMPLEMENT COMPONENT [id number] 13:18:38 Test Item Value Reference Range Interpretation Comments C3 COMPLEMENT (BEAKER) (test code = 103 mg/dL 82-193 393) Railroad Detective ID - AAHAMIDCOMPLEMENT COMPONENT [id number] 13:18:37 Test Item Value Reference Range Interpretation Comments C4 COMPLEMENT (BEAKER) (test code = 11 mg/dL 15-57 L 394) [employer] Detective ID - AAHAMIDSURGICALLY OBTAINED CULTURE + GRAM [id number] 11:03:20 Test Item Value Reference Range Interpretation [...] No organisms seen (BEAKER) (test code = 269406) [id number] 06:37:27 Test Item Value Reference Range Interpretation Comments PHOSPHORUS (BEAKER) (test code = 3.5 mg/dL 2.3-4.7 604) Railroad Detective ID - PIAYA LBASIC METABOLIC [id number] 06:37:26 Test Item Value Reference Range Interpretation [...] not appl icable for dialysis patien ts Railroad Detective ID - MARIBEL [id number] 06:37:26 Test Item Value Reference Range Interpretation Comments MAGNESIUM (BEAKER) (test code = 1.5 mg/dL 1.6-2.6 L 627) Railroad Detective ID - MARIBEL LCBC W/PLT COUNT & AUTO [id number] 05:01:09 Test Item Value Reference Range Interpretation [...] (BEAKER) (test code = 2801) BASIC METABOLIC [id number] 06:02:45 Test Item Value Reference Range Interpretation [...] not appl icable for dialysis patien ts Railroad Detective ID - ALVINA MCBC W/PLT COUNT & AUTO [id number] 05:42:07 Test Item Value Reference Range Interpretation [...] = 2801) CBC W/PLT COUNT & AUTO [id number] 05:09:33 Test Item Value Reference Range Interpretation [...] 0-1 PERCENT (BEAKER) (test code = 2801) [id number] 04:56:25 Test Item Value Reference Range Interpretation Comments MAGNESIUM (BEAKER) (test code = 1.6 mg/dL 1.6-2.6 627) Railroad Detective ID - MARIBEL [id number] 04:56:25 Test Item Value Reference Range Interpretation Comments PHOSPHORUS (BEAKER) (test code = 2.7 mg/dL 2.3-4.7 604) Railroad Detective ID - PIAYA LBASIC METABOLIC [id number] 04:56:24 Test Item Value Reference Range Interpretation [...] not appl icable for dialysis patien ts Railroad Detective ID Cherelle LÓPEZ [id number] 10:33:28 Test Item Value Reference Range Interpretation Comments PHOSPHORUS (BEAKER) (test code = 3.0 mg/dL 2.3-4.7 604) Railroad Detective ID - ALVINA MBASIC METABOLIC [id number] 10:33:27 Test Item Value Reference Range Interpretation [...] not appl icable for dialysis patien ts Railroad Detective ID - ALVINA [id number] 10:33:27 Test Item Value Reference Range Interpretation Comments MAGNESIUM (BEAKER) (test code = 1.7 mg/dL 1.6-2.6 627) Railroad Detective ID - ALVINA MCBC W/PLT COUNT & AUTO [id number] 10:29:43 Test Item Value Reference Range Interpretation [...] PERCENT (BEAKER) (test code = 2801) SPIN/CONCENTRATION [id number] 06:56:34 Test Item Value Reference Range Interpretation Comments Concentration charged (test code = Done 2657) [facility] [id number] 06:56:34 Test Item Value Reference Range Interpretation Comments Concentration charged (test code = Done 2657) [facility] [id number] 06:56:34 Test Item Value Reference Range Interpretation Comments Concentration charged (test code = Done 2657) [facility] [id number] 06:56:34 Test Item Value Reference Range Interpretation Comments CONCENTRATION CHARGED (BEAKER) (test Done code = 2657) SARS-CoV2/RT-PCR (Asymptomatic ONLY)2022-02-07 12:35:45 Test Item Value Reference Range Interpretation Comments SARS-COV2/RT-PCR Negative Not Detected, (test code = Negative, See 59883-8) external report for linked test SARS-COV-2 [facility] (test code = 57245-8) IDALIA (test code = Negative result for [...] of the Act. Fact Sheet for Healthcare Providers:https://www.[employer]/sites/default/f anup/product/documents/F act_Sheet_HC_Providers_L rab_BVZG-GwF-1.pdf Fact Sheet for Healthcare Patients:https://www.[employer]/sites/default/fi les/product/documents/Fa ct_Sheet_Patients_Lyra_S ARS-CoV-2.pdf Performing Laboratory:[facility], [place] [address] [place], [place] [address]ARS-CoV2/RT-PCR (Asymptomatic ONLY)2022-02-07 12:35:45 Test Item Value Reference Range Interpretation Comments SARS-COV2/RT-PCR Negative Not Detected, (test code = Negative, See 56470-7) external report for linked test SARS-COV-2 [facility] (test code = 98967-4) IDALIA (test code = Negative result for [...] of the Act. Fact Sheet for Healthcare Providers:https://www.[employer]/sites/default/f anup/product/documents/F act_Sheet_HC_Providers_L qnc_BPKY-JfP-6.pdf Fact Sheet for Healthcare Patients:https://www.[employer]/sites/default/fi les/product/documents/Fa ct_Sheet_Patients_Lyra_S ARS-CoV-2.pdf Performing Laboratory:[facility] [place] [address] [facility] (Asymptomatic ONLY)2022-02-07 12:35:45 Test Item Value Reference Range Interpretation Comments SARS-COV2/RT-PCR Negative Not Detected, (test code = Negative, See 39186-0) external report for linked test SARS-COV-2 [facility] (test code = 00165-2) IDALIA (test code = Negative result for [...] of the Act. Fact Sheet for Healthcare Providers:https://www.[employer]/sites/default/f anup/product/documents/F act_Sheet_HC_Providers_L qlu_WLLL-HtR-4.pdf Fact Sheet for Healthcare Patients:https://www.[employer]/sites/default/fi les/product/documents/Fa ct_Sheet_Patients_Lyra_S ARS-CoV-2.pdf Performing Laboratory:[facility] [facility], [place] [address] [place], [place] [address]ARS-COV2/RT-PCR ([facility])2022-02-07 12:35:45 Test Item Value Reference Range Interpretation Comments SARS-COV2/RT-PCR (test Negative Not Detected, Negative, code = 7528890) See external report for linked test SARS-COV-2 PERFORMING LAB [facility] (test code = 5305489) Negative result for this test determines that [...] of the Act.Fact Sheet for Healthcare Prov iders:https://www.[employer]/sites/default/files/product/documents/Fact_Sheet_HC _Sggkbzebv_Kpta_RDLG-FgO-6.pdfFact Sheet for Healthcare Patients:https://www.[employer]/sites/default/files/product/docume nts/Kxth_Enxtp_Avnfecvl_Swij_LHMJ-XzB-5.pdfPerforming Laboratory:[facility], [place] [id number] 05:26:59 Test Item Value Reference Range Interpretation Comments MAGNESIUM (BEAKER) (test code = 1.7 mg/dL 1.6-2.6 627) Railroad Detective ID - ALVINA [id number] 05:26:59 Test Item Value Reference Range Interpretation Comments PHOSPHORUS (BEAKER) (test code = 3.3 mg/dL 2.3-4.7 604) Railroad Detective ID - ALVINA MBASIC METABOLIC [id number] 05:26:58 Test Item Value Reference Range Interpretation [...] not appl icable for dialysis patien ts Railroad Detective ID - ALVINA MPROTHROMBIN TIME/[id number] 04:21:01 Test Item Value Reference Range Interpretation Comments PROTIME (BEAKER) 14.9 seconds 11.9-14.2 H (test code = 759) INR (BEAKER) (test 1.24 See_Comment [Automat ed message] code = 370) The system CHARMS PPEC generated this result transmitted ref erence range: <=5.90. The reference range was not used to int erpret this result as normal/abnormal . RECOMMENDED COUMADIN/WARFARIN INR THERAPY RANGESSTANDARD DOSE: 2.0 - 3.0 Includes: PROPHYLAXIS for venous thrombosis, systemic embolization; TREATMENT for venous thrombosis and/or pulmonary embolus.HIGH RISK: Target INR is 2.5-3.5 for patients with mechanical heart valves.CBC W/PLT COUNT & AUTO [id number] 04:04:31 Test Item Value Reference Range Interpretation [...] = 2801) RAD, CHEST, 1 VIEW, NON [id number] 19:52:00Reason for exam:->post picc line insertionShould this be performed at the bedside?->Yes [facility] 2000 Sex: MFINAL [...] no acute bony abnormality. Signed: Miles Alicia MDRmt. [facility] Verified Date/Time: 02/06/2022 19:52:18 CT, [id number] 11:33:00Unlisted Reason for Exam - Click Yes and Enter Reason Below->NoIs this for enterography?->NoWill this procedure require oral contrast?->No [facility] 2000 Sex: MFINAL [...] degenerative changes of the left hip with rgwd-qs-bqdj and mild bony remodeling. IMPRESSION: 1.Minimal change from 01/30/2022, rim-enhancing collections of liquid and gas near the pancreatic tail, largest in the gastrosplenic ligament measures 6.1 cm and along the left anterior pararenal space measures 4 x 2.1 cm, likely infected and grossly similar in size to 01/30/2022. 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 Signed: Felicity Novak MDReport Verified Date/Time: 02/05/2022 11:33:01 Reading Location:[facility] B1 C[address]Y CT Body Reading Room MAGNESIUM 2022-02-05 05:39:00 Test Item Value Reference Range Interpretation Comments MAGNESIUM (BEAKER) (test code = 1.6 mg/dL 1.6-2.6 627) Railroad Detective ID - PIAYA [id number] 05:39:00 Test Item Value Reference Range Interpretation Comments PHOSPHORUS (BEAKER) (test code = 2.5 mg/dL 2.3-4.7 604) Railroad Detective ID - PIAYA LBASIC METABOLIC [id number] 05:38:59 Test Item Value Reference Range Interpretation [...] not appl icable for dialysis patien ts Railroad Detective ID - PIAYA LCBC W/PLT COUNT & AUTO [id number] 04:47:57 Test Item Value Reference Range Interpretation [...] PERCENT (BEAKER) (test code = 2801) POC-Glucose [id number] 07:40:25 Test Item Value Reference Range Interpretation Comments POC-Glucose Meter (test 153 mg/dL 70-110 H : TE STED AT [facility] code = 1538) [address] [facility], 770 30: Railroad Detective/Techni [place] ID = [id number] for RAHUL, CONCEPCION Lab Interpretation (test Abnormal code = 08122-9) [facility]-Glucose [id number] 07:40:25 Test Item Value Reference Range Interpretation Comments POC-Glucose Meter (test 153 mg/dL 70-110 H : TE STED AT [facility] code = 1538) [address] [facility], 770 30: Railroad Detective/Techni [place] ID = [id number] for RAHUL, CONCEPCION Lab Interpretation (test Abnormal code = 09010-0) [facility] [id number] 07:40:25 Test Item Value Reference Range Interpretation Comments POC-Glucose Meter (test 153 mg/dL 70-110 H : TE STED AT [facility] code = 1538) [address] [facility], 770 30: Railroad Detective/Techni [place] ID = [id number] for RAHUL, CONCEPCION Lab Interpretation (test Abnormal code = 97051-4) [facility]-GLUCOSE [id number] 07:40:25 Test Item Value Reference Range Interpretation Comments POC-GLUCOSE METER 153 mg/dL 70-110 H : TESTED A T [facility] 6720 (BEAKER) (test code = [facility], 1538) [address]: Railroad Detective/Techni [place] ID = [id number] for WA DE, CONCEPCINO [id number] 05:56:41 Test Item Value Reference Range Interpretation Comments PHOSPHORUS (BEAKER) (test code = 3.4 mg/dL 2.3-4.7 604) Railroad Detective ID - ALVINA MBASIC METABOLIC [id number] 05:56:40 Test Item Value Reference Range Interpretation [...] not appl icable for dialysis patien ts Railroad Detective ID - ALVINA MCBC W/PLT COUNT & AUTO [id number] 05:19:20 Test Item Value Reference Range Interpretation [...] PERCENT (BEAKER) (test code = 2801) POCT-GLUCOSE [id number] 18:17:28 Test Item Value Reference Range Interpretation Comments POC-GLUCOSE METER 119 mg/dL 70-110 H : TESTED A T [facility] 6720 (BEAKER) (test code = [place], 1538) [address]: Railroad Detective/Techni [place] ID = [id number] for Melia Navarro, FLUORO, NON-SPECIFIC, UP TO 1 [id number] 12:15:00Reason for exam:- >Pancreatitis with fluid collection [facility] : 2000 Sex: MAn imaging unit was utilized for this procedure. No radiologist interpretation was requested. Refer to the EMR for findings. Refer to PACS for any patient radiation dose information.[id number] 06:20:54 Test Item Value Reference Range Interpretation Comments PHOSPHORUS (BEAKER) (test code = 4.1 mg/dL 2.3-4.7 604) Railroad Detective ID - BSBASIC METABOLIC [id number] 06:20:53 Test Item Value Reference Range Interpretation [...] not appl icable for dialysis patien ts Railroad Detective ID - BSCBC W/PLT COUNT & AUTO [id number] 06:17:18 Test Item Value Reference Range Interpretation [...] PERCENT (BEAKER) (test code = 2801) PROTHROMBIN TIME/[id number] 05:56:55 Test Item Value Reference Range Interpretation Comments PROTIME (BEAKER) 14.6 seconds 11.9-14.2 H (test code = 759) INR (BEAKER) (test 1.21 See_Comment [Automat ed message] code = 370) The system CHARMS PPEC generated this result transmitted ref erence range: <=5.90. The reference range was not used to int erpret this result as normal/abnormal . RECOMMENDED COUMADIN/WARFARIN INR THERAPY RANGESSTANDARD DOSE: 2.0 - 3.0 Includes: PROPHYLAXIS for venous thrombosis, systemic embolization; TREATMENT for venous thrombosis and/or pulmonary embolus.HIGH RISK: Target INR is 2.5-3.5 for patients with mechanical heart valves.SARS-COV2/RT-PCR ([facility]) 2022-02-01 11:35:08 Test Item Value Reference Range Interpretation Comments SARS-COV2/RT-PCR Negative Negative The SARS-Co V-2 target (test code = nucleic acids a re not 6277336) detected in thi s specimen. Negative result [...] revoked sooner. Fact Sheet for Healthcare Providers: https://www.[employer] m/Documents/Xpert%20Xpress%20SARS%20CoV-2/Fact%20Sheets/302-3802%34XEHT-MHP-3%20 HEALTHCARE%20PROVIDERS%20FACT%20SHEET.pdf Fact Sheet for Healthcare Patients: https://www.[employer]/Documents/Xpert%20Xp ress%20SARS%20CoV-2/Fact%20Sheets/302-3801%13AMDB-QSS-1%20PATIENT%20FACT%20SHEET .[id number] 08:00:14 Test Item Value Reference Range Interpretation Comments PHOSPHORUS (BEAKER) (test code = 3.9 mg/dL 2.3-4.7 604) Railroad Detective ID - PIAYA LBASIC METABOLIC [id number] 08:00:13 Test Item Value Reference Range Interpretation [...] not appl icable for dialysis patien ts Railroad Detective ID - PIAYA LCBC W/PLT COUNT & AUTO [id number] 06:53:15 Test Item Value Reference Range Interpretation [...] PERCENT (BEAKER) (test code = 2801) PROTHROMBIN TIME/[id number] 06:23:20 Test Item Value Reference Range Interpretation Comments PROTIME (BEAKER) 14.1 seconds 11.9-14.2 (test code = 759) INR (BEAKER) (test 1.16 See_Comment [Automat ed message] code = 370) The system CHARMS PPEC generated this result transmitted ref erence range: <=5.90. The reference range was not used to int erpret this result as normal/abnormal . RECOMMENDED COUMADIN/WARFARIN INR THERAPY RANGESSTANDARD DOSE: 2.0 - 3.0 Includes: PROPHYLAXIS for venous thrombosis, systemic embolization; TREATMENT for venous thrombosis and/or pulmonary embolus.HIGH RISK: Target INR is 2.5-3.5 for patients with mechanical heart valves.CT, [id number] 11:26:00Unlisted Reason for Exam - Click Yes and Enter Reason Below->NoIs this for enterography?->NoWill this procedure require oral contrast?->Yes [facility] : 2000 Sex: MFINAL REPORT ABDOMINAL AND [...] gastrolienal ligament. Signed: Gokul Young MDReport Verified Date/Time:01/31/2022 11:26:33 Reading Location: [address] Body Reading Room BASIC METABOLIC [id number] 07:01:22 Test Item Value Reference Range Interpretation [...] not appl icable for dialysis patien ts Railroad Detective ID - ALVINA [id number] 07:01:21 Test Item Value Reference Range Interpretation Comments PHOSPHORUS (BEAKER) 3.6 mg/dL 2.3-4.7 Specimen slightly (test code = 604) hemolyzed Railroad Detective ID - ALVINA MCBC W/PLT COUNT & AUTO [id number] 06:23:58 Test Item Value Reference Range Interpretation [...] H PERCENT (BEAKER) (test code = 2801) [id number] 07:03:32 Test Item Value Reference Range Interpretation Comments PHOSPHORUS (BEAKER) 3.5 mg/dL 2.3-4.7 Specimen slightly (test code = 604) hemolyzed Railroad Detective ID - PIAYA LBASIC METABOLIC [id number] 07:03:32 Test Item Value Reference Range Interpretation [...] not appl icable for dialysis patien ts Railroad Detective ID - PIAYA LCBC W/PLT COUNT & AUTO [id number] 06:30:07 Test Item Value Reference Range Interpretation [...] H PERCENT (BEAKER) (test code = 2801) [id number] 08:28:15 Test Item Value Reference Range Interpretation Comments PHOSPHORUS (BEAKER) 3.5 mg/dL 2.3-4.7 Specimen slightly (test code = 604) hemolyzed Railroad Detective ID - SHREE WBASIC METABOLIC [id number] 05:22:30 Test Item Value Reference Range Interpretation [...] glom erular filtration rate . Estimated GFR i s not applicable for dialysis patients Railroad Detective ID - SHREE WCBC W/PLT COUNT & AUTO [id number] 04:54:08 Test Item Value Reference Range Interpretation [...] (BEAKER) (test code = 2801) BASIC METABOLIC [id number] 15:33:00 Test Item Value Reference Range Interpretation [...] not appl icable for dialysis patien ts Railroad Detective ID - [id number] 15:32:59 Test Item Value Reference Range Interpretation Comments PHOSPHORUS (BEAKER) 2.1 mg/dL 2.3-4.7 L Specimen slightly (test code = 604) hemolyzed Railroad Detective ID - MITCHCBC W/PLT COUNT & AUTO [id number] 15:08:06 Test Item Value Reference Range Interpretation [...] PERCENT (BEAKER) (test code = 2801) SARS-COV2/RT-PCR ([facility])2022-01-27 12:45:59 Test Item Value Reference Range Interpretation Comments SARS-COV2/RT-PCR Negative Negative The SARS-Co V-2 target (test code = nucleic acids a re not 0470913) detected in thi s specimen. Negative result [...] revoked sooner. Fact Sheet for Healthcare Providers: https://UnFlete.com.Wego m/Documents/Xpert%20Xpress%20SARS%20CoV-2/Fact%20Sheets/302-3802%61UVPX-ZYB-1%20 HEALTHCARE%20PROVIDERS%20FACT%20SHEET.pdf Fact Sheet for Healthcare Patients: https://www.[employer]/Documents/Xpert%20Xp ress%20SARS%20CoV-2/Fact%20Sheets/302-3801%54ZSYA-RVN-6%20PATIENT%20FACT%20SHEET .pdfCOMPREHENSIVE METABOLIC [id number] 09:49:55 Test Item Value Reference Range Interpretation [...] (test code = 347) EGFR (BEAKER) 142 Interpretati on of eGFR (test code = 1092) mL/min/1.73 [...] not appl icable for dialysis patien ts Railroad Detective ID - ALVINA MOperator ID - ALVINA [id number] 09:45:42 Test Item Value Reference Range Interpretation Comments MAGNESIUM (BEAKER) (test code = 1.6 mg/dL 1.6-2.6 627) Railroad Detective ID - ALVINA [id number] 09:45:42 Test Item Value Reference Range Interpretation Comments PHOSPHORUS (BEAKER) (test code = 2.2 mg/dL 2.3-4.7 L 604) Railroad Detective ID - ALVINA MCBC W/PLT COUNT & AUTO [id number] 06:05:25 Test Item Value Reference Range Interpretation [...] code = 2801) RAD, KNEE, 3 VIEWS, [id number] 14:50:00Is this procedure to be performed with weight bearing?->Non-Weight BearingReason for exam:->knee pain [facility] : 2000 Sex: [...] Garcia Verified Date/Time: 01/26/2022 14:50:13 Reading Location: [address] Reading Room RAD, KNEE, 3 VIEWS, [id number] 14:00:00Is this procedure to be performed with weight bearing?->Non-Weight BearingReason for exam:->knee pain [facility] : 2000 Sex: MFINAL [...] Garcia Verified Date/Time: 01/26/2022 14:00:42 Reading Location: [address] Reading Room ANTI-DNA [id number] 12:29:53 Test Item Value Reference Range Interpretation Comments ANTI-DNA TITER (BEAKER) (test code = :160 1553) DOUBLE-STRANDED DNA (DSDNA) [id number] 12:29:42 Test Item Value Reference Range Interpretation Comments ANTI-DNA DS (BEAKER) (test code = Positive Negative 1055) COMPLEMENT COMPONENT [id number] 12:26:40 Test Item Value Reference Range Interpretation Comments C3 COMPLEMENT (BEAKER) (test code = 55 mg/dL 82-193 L 393) Railroad Detective ID - TANYA MCOMPLEMENT COMPONENT [id number] 12:26:39 Test Item Value Reference Range Interpretation Comments C4 COMPLEMENT (BEAKER) (test code = 6 mg/dL 15-57 L 394) Railroad Detective ID - TANYA MHEMOGLOBIN [id number] 09:30:34 Test Item Value Reference Range Interpretation Comments HEMOGLOBIN A1C 5.0 % See_Comment [Automated m essage] ELECTROPHORESIS (BEAKER) The system which (test code = 3811) generated this result transmitted ref erence range: <=5.6%. The reference range was not used to int erpret this result as normal/abnormal . "The A1c is measured using a [facility]-certified method. HbA1c value equal to or greater than 6.5% as thediagnosis cutoff for diabetes. An HbA1c value of 5.7- 6.4% indicates increased risk for diabetes (prediabetes)."Railroad Detective ID - [id number] 07:56:27 Test Item Value Reference Range Interpretation Comments MAGNESIUM (BEAKER) (test code = 1.9 mg/dL 1.6-2.6 627) Railroad Detective ID - ALVINA [id number] 07:56:27 Test Item Value Reference Range Interpretation Comments PHOSPHORUS (BEAKER) (test code = 3.5 mg/dL 2.3-4.7 604) Railroad Detective ID - ALVINA MCOMPREHENSIVE METABOLIC [id number] 07:56:26 Test Item Value Reference Range Interpretation [...] not appl icable for dialysis patien ts Railroad Detective ID - ALVINA MCBC W/PLT COUNT & AUTO [id number] 06:42:48 Test Item Value Reference Range Interpretation [...] PERCENT (BEAKER) (test code = 2801) Urinalysis w/[id number] 01:12:24 Test Item Value Reference Range Interpretation Comments Color, UA (test code Yellow = 5778-6) Clarity, UA (test Clear code = 5767-9) Specific [place], UA 1.017 1.001-1.035 (test code = 5811-5) pH, UA (test code = 6.0 5.0-8.0 5803-2) Protein, UA (test Negative Negative code = 61696-7) Glucose, UA (test Negative Negative code = 365) Ketones, UA (test Trace Negative A code = 2514-8) Bilirubin, UA (test Negative Negative code = 61134-3) Blood, UA (test code Negative Negative = 56212-1) Nitrite, UA (test Negative Negative code = 5802-4) Leukocytes, UA (test Negative Negative code = 5799-2) Urobilinogen, UA 3.0 mg/dL 0.2-1.0 H (test code = 78267-3) RBC, UA (test code = 1 See_Comment [Autom ated 12246-9) message] The system which generated this result [...] Bacteria, UA (test None Seen code = 52369-8) Mucus (test code = Few 8247-9) Crystals, Urine (test Rare code = 33642-3) Specimen Source (test code = 2795) IDALIA (test code = IDALIA) Railroad Detective ID - [auto]Railroad Detective ID - tech Lab Interpretation Abnormal (test code = 53174-6) [facility]/[id number] 01:12:24 Test Item Value Reference Range Interpretation Comments Color, UA (test code Yellow = 5778-6) Clarity, UA (test Clear code = 5767-9) Specific [place], UA 1.017 1.001-1.035 (test code = 5811-5) pH, UA (test code = 6.0 5.0-8.0 5803-2) Protein, UA (test Negative Negative code = 09772-4) Glucose, UA (test Negative Negative code = 365) Ketones, UA (test Trace Negative A code = 2514-8) Bilirubin, UA (test Negative Negative code = 07001-8) Blood, UA (test code Negative Negative = 22761-2) Nitrite, UA (test Negative Negative code = 5802-4) Leukocytes, UA (test Negative Negative code = 5799-2) Urobilinogen, UA 3.0 mg/dL 0.2-1.0 H (test code = 45807-5) RBC, UA (test code = 1 See_Comment [Autom ated 45244-8) message] The system which generated this result [...] Bacteria, UA (test None Seen code = 17269-2) Mucus (test code = Few 8247-9) Crystals, Urine (test Rare code = 65728-0) Specimen Source (test code = 2795) IDALIA (test code = IDALIA) Railroad Detective ID - [auto]Railroad Detective ID - tech Lab Interpretation Abnormal (test code = 92295-9) [facility] w/Nbuxbilltag7951-07-17 01:12:24 Test Item Value Reference Range Interpretation Comments Color, UA (test code Yellow = 5778-6) Clarity, UA (test Clear code = 5767-9) Specific [place], UA 1.017 1.001-1.035 (test code = 5811-5) pH, UA (test code = 6.0 5.0-8.0 5803-2) Protein, UA (test Negative Negative code = 34738-1) Glucose, UA (test Negative Negative code = 365) Ketones, UA (test Trace Negative A code = 2514-8) Bilirubin, UA (test Negative Negative code = 63159-2) Blood, UA (test code Negative Negative = 21563-2) Nitrite, UA (test Negative Negative code = 5802-4) Leukocytes, UA (test Negative Negative code = 5799-2) Urobilinogen, UA 3.0 mg/dL 0.2-1.0 H (test code = 63820-9) RBC, UA (test code = 1 See_Comment [Autom ated 54168-4) message] The system which generated this result [...] Bacteria, UA (test None Seen code = 17395-5) Mucus (test code = Few 8247-9) Crystals, Urine (test Rare code = 98652-0) Specimen Source (test code = 2795) IDALIA (test code = IDALIA) Railroad Detective ID - [auto]Railroad Detective ID - tech Lab Interpretation Abnormal (test code = 53875-7) [facility] CenterURINALYSIS W/ [id number] 01:12:24 Test Item Value Reference Range Interpretation [...] = 1521) SOURCE(BEAKER) (test code = 2795) Railroad Detective ID - [auto]Railroad Detective ID - techPROTHROMBIN TIME/[id number] 11:13:08 Test Item Value Reference Range Interpretation Comments PROTIME (BEAKER) 16.0 seconds 11.9-14.2 H (test code = 759) INR (BEAKER) (test 1.37 See_Comment [Automat ed message] code = 370) The system CHARMS PPEC generated this result transmitted ref erence range: <=5.90. The reference range was not used to int erpret this result as normal/abnormal . RECOMMENDED COUMADIN/WARFARIN INR THERAPY RANGESSTANDARD DOSE: 2.0 - 3.0 Includes: PROPHYLAXIS for venous thrombosis, systemic embolization; TREATMENT for venous thrombosis and/or pulmonary embolus.HIGH RISK: Target INR is 2.5-3.5 for patients with mechanical heart valves.HEPATIC FUNCTION [id number] 08:23:09 Test Item Value Reference Range Interpretation [...] Specimen slightly (test code = 347) hemolyzed Railroad Detective ID - ALVINA [id number] 08:20:14 Test Item Value Reference Range Interpretation Comments PHOSPHORUS (BEAKER) 4.9 mg/dL 2.3-4.7 H Specimen slightly (test code = 604) hemolyzed Railroad Detective ID - ALVINA [id number] 08:20:14 Test Item Value Reference Range Interpretation Comments MAGNESIUM (BEAKER) 1.5 mg/dL 1.6-2.6 L Specimen slightly (test code = 627) hemolyzed Railroad Detective ID - ALVINA MLACTIC ACID, [id number] 07:47:42 Test Item Value Reference Range Interpretation Comments LACTATE BLOOD VENOUS 1.04 mmol/L 0.50-2.20 Specime n slightly (2) (BEAKER) (test hemolyzed code = 3642) Railroad Detective ID - ALVINA MBASIC METABOLIC [id number] 07:28:57 Test Item Value Reference Range Interpretation [...] not appl icable for dialysis patien ts Railroad Detective ID - ALVINA MPT/[id number] 07:01:08 Test Item Value Reference Range Interpretation [...] mechanical heart valves.CBC W/PLT COUNT & AUTO CERUWDULSGJX7584-04-10 06:52:58 Test Item Value Reference Range Interpretation [...] Not Detected, (test code = Negative, See 47429-0) external report for linked test SARS-COV-2 [facility] PERFORMING LAB (test code = 03776-0) IDALIA (test code = Negative result for [...] of the Act. Fact Sheet for Healthcare Providers:https://www.[employer]/sites/default/f anup/product/documents/F act_Sheet_HC_Providers_L vgy_UZWR-AeE-5.pdf Fact Sheet for Healthcare Patients:https://www.Skyera/sites/default/fi les/product/documents/Fa ct_Sheet_Patients_Lyra_S ARS-CoV-2.pdf Performing Laboratory:[facility] [place] [address] [facility]2021-12-25 10:50:35 Test Item Value Reference Range Interpretation Comments SARS-COV2/RT-PCR (test Negative Not Detected, Negative, code = 4361368) See external report for linked test SARS-COV-2 PERFORMING LAB [facility] (test code = 5913686) Negative result for this test determines that [...] of the Act.Fact Sheet for Healthcare Prov iders:https://www.[employer]/sites/default/files/product/documents/Fact_Sheet_HC _Lnmrsrblx_Behv_GSMX-JyE-8.pdfFact Sheet for Healthcare Patients:https://www.[employer]/sites/default/files/product/docume nts/Mfdk_Sweim_Zpazbdnw_Sszb_MKWO-RmI-4.pdfPerforming Laboratory:[place] [address], [place] [address]WXDSN METABOLIC PANEL 2021-12-25 05:39:15 Test Item Value [...] not appl icable for dialysis patien ts Railroad Detective ID - PIAYA LCBC W/PLT COUNT & AUTO [id number] 04:50:53 Test Item Value Reference Range Interpretation [...] (BEAKER) (test code = 2801) BASIC METABOLIC [id number] 04:18:37 Test Item Value Reference Range Interpretation [...] eGF R is based on the CKD-EPI 1 equation that d oes not use a race coefficientEsti mated GFR is not as accur ate as Creatinine Kari hunter in predicting glom erular filtration rate . Estimated GFR is not appl icable for dialysis patien ts Railroad Detective ID - ALVINA MCBC W/PLT COUNT & AUTO [id number] 04:02:11 Test Item Value Reference Range Interpretation [...] (BEAKER) (test code = 2801) BASIC METABOLIC [id number] 03:48:40 Test Item Value Reference Range Interpretation [...] not appl icable for dialysis patien ts Railroad Detective ID - BSCBC W/PLT COUNT & AUTO [id number] 03:25:33 Test Item Value Reference Range Interpretation [...] (BEAKER) (test code = 2801) COMPLEMENT COMPONENT [id number] 05:12:57 Test Item Value Reference Range Interpretation Comments C3 COMPLEMENT (BEAKER) (test code = 58 mg/dL 82-193 L 393) Railroad Detective ID - PIAYA LCOMPLEMENT COMPONENT [id number] 05:12:56 Test Item Value Reference Range Interpretation Comments C4 COMPLEMENT (BEAKER) (test code = 5 mg/dL 15-57 L 394) Railroad Detective ID - PIAYA LBASIC METABOLIC [id number] 04:43:01 Test Item Value Reference Range Interpretation [...] is not as accur ate as Creatinine aKri harrison in predicting glom erular filtration rate . Estimated GFR is not appl icable for dialysis patien ts Railroad Detective ID - ALVINA M-CBC W/PLT COUNT & AUTO [id number] 04:23:52 Test Item Value Reference Range Interpretation [...] (BEAKER) (test code = 2801) BASIC METABOLIC [id number] 06:45:19 Test Item Value Reference Range Interpretation [...] not appl icable for dialysis patien ts Railroad Detective ID - PIAYA LCBC W/PLT COUNT & AUTO [id number] 06:29:46 Test Item Value Reference Range Interpretation [...] PERCENT (BEAKER) (test code = 2801) CT, [id number] 15:01:00Unlisted Reason for Exam - Click Yes and Enter Reason Below->Nointraabdominal abscessesIs this for enterography?->NoWill this procedure require oral contrast?->Yes [facility] 2000 Sex: MFINAL [...] [place] MDReportVerified Date/Time: 12/20/2021 15:01:52 Reading Location: [facility] C013X Ortho Consult Reading Room Jelly ctronically signed by: NEVIN HADLEY M.D. on 12/20/2021 03:01 PMBASI METABOLIC [id number] 06:08:38 Test Item Value Reference Range Interpretation [...] not appl icable for dialysis patien ts Railroad Detective ID - BISI [id number] 06:08:38 Test Item Value Reference Range Interpretation Comments MAGNESIUM (BEAKER) (test code = 1.7 mg/dL 1.6-2.6 627) Railroad Detective ID - BISI GCBC W/PLT COUNT & AUTO [id number] 05:55:13 Test Item Value Reference Range Interpretation [...] 0-1 PERCENT (BEAKER) (test code = 2801) [id number] 05:57:20 Test Item Value Reference Range Interpretation Comments MAGNESIUM (BEAKER) (test code = 1.8 mg/dL 1.6-2.6 627) Railroad Detective ID - PIAYA LBASIC METABOLIC [id number] 05:57:19 Test Item Value Reference Range Interpretation [...] not appl icable for dialysis patien ts Railroad Detective ID - PIAYA LCBC W/PLT COUNT & AUTO [id number] 05:05:06 Test Item Value Reference Range Interpretation [...] 0-1 PERCENT (BEAKER) (test code = 2801) [id number] 05:14:32 Test Item Value Reference Range Interpretation Comments MAGNESIUM (BEAKER) (test code = 1.6 mg/dL 1.6-2.6 627) Railroad Detective ID - DBBASIC METABOLIC [id number] 05:14:31 Test Item Value Reference Range Interpretation [...] not appl icable for dialysis patien ts Railroad Detective ID - DBCBC W/PLT COUNT & AUTO [id number] 04:29:19 Test Item Value Reference Range Interpretation [...] PERCENT (BEAKER) (test code = 2801) SARS-COV2/RT-PCR ([facility])2021-12-18 02:02:45 Test Item Value Reference Range Interpretation Comments SARS-COV2/RT-PCR (test Negative Not Detected, Negative, code = 5534696) See external report for linked test SARS-COV-2 PERFORMING LAB [facility] (test code = 5634611) Negative result for this test determines that [...] of the Act.Fact Sheet for Healthcare Prov iders:https://www.[employer]/sites/default/files/product/documents/Fact_Sheet_HC _Rbrqeqnpr_Itiw_HYQO-VrM-4.pdfFact Sheet for Healthcare Patients:https://www.[employer]/sites/default/files/product/docume nts/Upre_Cyoyo_Tswkixjm_Fhot_VMCY-FuB-5.pdfPerforming Laboratory:[facility], [place] [address]SAFZSHER KINASE (CK) 2021-12-17 07:03:15 Test Item Value Reference Range Interpretation Comments CREATINE KINASE TOTAL (BEAKER) (test < U/L 29-200 L code = 380) Railroad Detective ID - BISI GBASIC METABOLIC [id number] 06:48:47 Test Item Value Reference Range Interpretation [...] (test code = 697) EGFR (BEAKER) 135 Interpretati on of eGFR (test code = [...] not appl icable for dialysis patien ts Railroad Detective ID - BISI [id number] 06:48:47 Test Item Value Reference Range Interpretation Comments MAGNESIUM (BEAKER) (test code = 1.7 mg/dL 1.6-2.6 627) Railroad Detective ID - BISI GCBC W/PLT COUNT & AUTO [id number] 06:18:24 Test Item Value Reference Range Interpretation [...] (BEAKER) (test code = 2801) HEPATIC FUNCTION [id number] 05:37:52 Test Item Value Reference Range Interpretation [...] (test code = 22 U/L 6-55 347) Railroad Detective ID - ALVINA MBASIC METABOLIC [id number] 05:37:51 Test Item Value Reference Range Interpretation [...] not appl icable for dialysis patien ts Railroad Detective ID - ALVINA [id number] 05:37:51 Test Item Value Reference Range Interpretation Comments MAGNESIUM (BEAKER) (test code = 1.8 mg/dL 1.6-2.6 627) Railroad Detective ID Cherelle ALVINA MCBC W/PLT COUNT & AUTO [id number] 05:19:35 Test Item Value Reference Range Interpretation [...] code = 2801) WOUND CULTURE + GRAM [id number] 15:11:36 Test Item Value Reference Range Interpretation [...] d message] code = 143) The system CHARMS PPEC generated this result transmitted ref erence range: Suscepti ble 0-2 , Dose Depe ndent Susceptible <0 or >2 , Resi. The ref erence range was not u sed to interpret this result as normal/abnor mal. Itraconazole (test See_Comment S [Automat ed message] code = 146) The system CHARMS PPEC generated this result transmitted ref erence range: Suscepti ble 0-0.125 , Dose Dependent Susce ptible <0 or >.125. Th e reference range was not used to int erpret this result as normal/abnormal . Micafungin (test See_Comment S [Automated message] code = 148) The system CHARMS PPEC generated this result transmitted ref erence range: Suscepti ble 0-0.25 , Non-susceptible <0 or >.25 , Resistan t . The reference r colby was not used to interpret this result as normal/abnor mal. Posaconazole (test See_Comment [Automat ed message] code = 152) The system CHARMS PPEC generated this result transmitted ref erence range: Suscepti ble >0-0 , No Interpretations Established <=0 or >0 . The reference range was not used to interpret this result as normal/abnor mal. Voriconazole (test See_Comment S [Automat ed message] code = 153) The system CHARMS PPEC generated this result transmitted ref erence range: [...] d message] code = 143) The system CHARMS PPEC generated this result transmitted ref erence range: Suscepti ble 0-0 , Dose Depe ndent Susceptible <0 or >0 , Resi. The ref erence range was not u sed to interpret this result as normal/abnor mal. Itraconazole (test See_Comment [Automat ed message] code = 146) The system CHARMS PPEC generated this result transmitted ref erence range: Suscepti ble 0-0.125 , Dose Dependent Susce ptible <0 or >.125. Th e reference range was not used to int erpret this result as normal/abnormal . Micafungin (test See_Comment S [Automated message] code = 148) The system CHARMS PPEC generated this result transmitted ref erence range: Suscepti ble 0-0.06 , Non-susceptible <0 or >.06 , Resistan t . The reference r colby was not used to interpret this result as normal/abnor mal. Posaconazole (test See_Comment [Automat ed message] code = 1522) The system CHARMS PPEC generated this result transmitted ref erence range: Suscepti ble >0-0 , No Interpretations Established <=0 or >0 . The reference range was not used to interpret this result as normal/abnor mal. Voriconazole (test See_Comment [Automat ed message] code = 153) The system CHARMS PPEC generated this result transmitted ref erence range: Suscepti ble >0-0 , Dose Dep endent Susceptible <=0 or >0 , No. The refer ence range was not u sed to interpret this result as normal/abnor mal. GRAM STAIN RESULT 4+ WBCs (BEAKER) (test code = 1123) GRAM STAIN RESULT <1+ budding (BEAKER) (test code yeast = 956050) [id number] 13:41:55 Test Item Value Reference Range Interpretation Comments MAGNESIUM (BEAKER) 1.6 mg/dL 1.6-2.6 Specimen slightly (test code = 627) hemolyzed Railroad Detective ID - BSBASIC METABOLIC [id number] 13:41:55 Test Item Value Reference Range Interpretation [...] not appl icable for dialysis patien ts Railroad Detective ID - BSCBC (HEMOGRAM ONLY)2021-12-15 12:10:46 Test [...] = 413) RAD, CHEST, 1 VIEW, NON [id number] 11:09:00Reason for exam:->PICC tip location verification.Should this be performed at the bedside?->Yes [facility] 2000 Sex: MFINAL REPORT CLINICAL HISTORY:PICC tip location verification. TECHNIQUE: 1 view of thechest. COMPARISON: 09/28/2021 IMPRESSION: The tip of the right PICC line is at the cavoatrial junction. There are no focal infiltrates or effusions. The cardiomediastinal silhouette is within normal limits for size. Signed: Darcie Williamson MDReport Verified Date/Time: 12/15/2021 11:09:16 Reading Location: [facility] Radiology Reading Room [id number] 07:04:44 Test Item Value Reference Range Interpretation Comments MAGNESIUM (BEAKER) (test code = 1.8 mg/dL 1.6-2.6 627) Railroad Detective ID - SHREE T, [id number] 13:51:00Unlisted Reason for Exam - Click Yes and Enter Reason Below->NoIs this for enterography?->NoWill this procedure require oral contrast?->No [facility] : 2000 Sex: MFINAL [...] MDReport Verified Date/Time: 12/14/2021 13:51:31 Reading Location: [facility] Diagnostic Imaging Reading Room - [place] [id number] ANTI-DNA [id number] 12:28:11 Test Item Value Reference Range Interpretation Comments ANTI-DNA TITER (BEAKER) (test code = :80 1553) DOUBLE-STRANDED DNA (DSDNA) [id number] 12:27:59 Test Item Value Reference Range Interpretation Comments ANTI-DNA DS (BEAKER) (test code = Positive Negative 1055) CBC W/PLT COUNT & AUTO [id number] 06:03:24 Test Item Value Reference Range Interpretation [...] code = 2801) CT, DRAINAGE W/ CATH [id number] 12:21:00Reason for exam:->undrained fluid collections in abdomen [facility] : 2000 Sex: MFINAL REPORT CT guided drainage catheter placement, 12/11/2021 Clinical History: Right-sided abdominal fluid collection. Modality: CT. Ic Engineer: Shira. Engine Boss: None. Sedation: Versed 1 mg and fentanyl [...] was achieved with 1% lidocaine, a 5 Faroese one-step catheter was advanced into the fluid collection under CT guidance. Aspiration was attempted through this catheter, but only a small amount of fluid could be obtained. After a small skin incision was made, a guidewire was advanced into the fluidcollection. Subsequently, a soft tissue tract was created with 8 Faroese dilator. After the tract wasdilated, an 8 Faroese all-purpose drainage catheter was placed into the [...] collection, with conscious sedation. Signed: Juaquin Oliva MDReport Verified Date/Time: 12/13/2021 12:21:52 Reading Location: [facility] Reading Room BASI METABOLIC [id number] 08:39:36 Test Item Value Reference Range Interpretation [...] S NOT APPLICABLE FOR DIALYSIS PATIEN TS. Railroad Detective ID - [id number] 08:39:36 Test Item Value Reference Range Interpretation Comments MAGNESIUM (BEAKER) (test code = 1.7 mg/dL 1.6-2.6 627) Railroad Detective ID - BSPOC-Glucose [id number] 07:42:54 Test Item Value Reference Range Interpretation Comments POC-Glucose Meter (test 128 mg/dL 70-110 H : TE STED AT [facility] code = 1538) [address] [facility], 7[address] 30: Railroad Detective/Techni dakota ID = [id number] for [facility] Lab Interpretation (test Abnormal code = 96603-8) [facility] CenterPO[facility] [id number] 07:42:54 Test Item Value Reference Range Interpretation Comments POC-GLUCOSE METER 128 mg/dL 70-110 H : TESTED A T [facility] [address] (BEAKER) (test code = [place] [facility], 1538) [address]: Railroad Detective/Techni dakota ID = [id number] for [facility] BLOOD [id number] 15:01:19 Test Item Value Reference Range Interpretation Comments CULTURE (BEAKER) (test No growth in 5 days code = 1095) BLOOD [id number] 15:01:19 Test Item Value Reference Range Interpretation [...] code C. di fficile GDH Toxin: = 2346753) NegativeC. diff icile GDH Antigen: Negati veKit Lot: [id number] Date : 08/22/2023 c [id number] 12:27:53Scan ResultComment: C. difficile GDH Toxin: NegativeC. difficile GDH Antigen: Negative Kit Lot: [id number] Date: 08/22/2023[facility] [id number] 12:27:53Scan ResultComment: C. difficile GDH Toxin: NegativeC. difficile GDH Antigen: Negative Kit Lot: [id number] Date: 08/22/2023[facility] [id number] 12:27:53Scan ResultComment: C. difficile GDH Toxin: NegativeC. difficile GDH Antigen: Negative Kit Lot: [id number] Date: 08/22/2023[facility] [id number] 12:27:53Scan ResultComment: C. difficile GDH Toxin: NegativeC. difficile GDH Antigen: Negative Kit Lot: [id number] Date: 08/22/2023[facility] Antonio[facility]OL[facility] [id number] 07:18:15 Test Item Value Reference Range Interpretation [...] S NOT APPLICABLE FOR DIALYSIS PATIEN TS. Railroad Detective ID - SHREE [id number] 07:18:14 Test Item Value Reference Range Interpretation Comments MAGNESIUM (BEAKER) 1.7 mg/dL 1.6-2.6 Specimen slightly (test code = 627) hemolyzed Railroad Detective ID - SHREE WCBC W/PLT COUNT & AUTO [id number] 06:48:11 Test Item Value Reference Range Interpretation [...] PERCENT (BEAKER) (test code = 2801) SARS-COV2/RT-PCR ([facility])2021-12-11 08:51:50 Test Item Value Reference Range Interpretation Comments SARS-COV2/RT-PCR (test Negative Not Detected, Negative, code = 6886882) See external report for linked test SARS-COV-2 PERFORMING LAB [facility] (test code = 3427206) Negative result for this test determines that [...] of the Act.Fact Sheet for Healthcare Prov iders:https://www.[employer]/sites/default/files/product/documents/Fact_Sheet_HC _Zbwxwkjgr_Ouwq_VZYM-SqP-6.pdfFact Sheet for Healthcare Patients:https://www.[employer]/sites/default/files/product/docume nts/Udei_Lfwsn_Ihyrppwo_Txxl_HVNC-SiD-7.pdfPerforming Laboratory:[facility], [place] [address]FAXTS METABOLIC PANEL 2021-12-11 07:32:42 Test Item Value [...] mg/dL 8.4-10.2 (test code = 697) EGFR (GENEVA) (test 175 mL/min/1.73 ESTIM ATED GFR IS code = 1092) sq m NOT ACCURATE CREATININE CLEARANCE IN PREDICTING GLOMERULAR FILTRATION RATE . ESTIMATED GFR I S NOT APPLICABLE FOR DIALYSIS PATIEN TS. Railroad Detective ID - PIJOVI [id number] 07:32:42 Test Item Value Reference Range Interpretation Comments MAGNESIUM (GENEVA) (test code = 1.7 mg/dL 1.6-2.6 627) Railroad Detective ID - MARIBEL LCT, [id number] 13:47:00Unlisted Reason for Exam - Click Yes and Enter Reason Below->NoIs this for enterography?->NoWill this procedure require oral contrast?->No [facility] : 2000 Sex: MFINAL [...] Fatty infiltrationof the liver. Signed: Andrés Holloway [facility] Verified Date/Time: 12/10/2021 13:47:19 [id number] 08:22:12 Test Item Value Reference Range Interpretation Comments MAGNESIUM (BEAKER) (test code = 1.5 mg/dL 1.6-2.6 L 627) Railroad Detective BEATRIZ - SHREE WBASIC METABOLIC [id number] 08:22:11 Test Item Value Reference Range Interpretation [...] S NOT APPLICABLE FOR DIALYSIS PATIEN TS. Railroad Detective ID - SHREE WCBC W/PLT COUNT & AUTO [id number] 05:53:31 Test Item Value Reference Range Interpretation [...] 0-1 PERCENT (BEAKER) (test code = 2801) [id number] 05:50:23 Test Item Value Reference Range Interpretation Comments MAGNESIUM (BEAKER) (test code = 1.8 mg/dL 1.6-2.6 627) Railroad Detective ID - BISI GBASIC METABOLIC [id number] 05:50:22 Test Item Value Reference Range Interpretation [...] S NOT APPLICABLE FOR DIALYSIS PATIEN TS. Railroad Detective ID - BISI GCOMPLEMENT COMPONENT [id number] 05:47:38 Test Item Value Reference Range Interpretation Comments C3 COMPLEMENT (BEAKER) (test code = 34 mg/dL 82-193 L 393) Railroad Detective ID Cherelle LÓPEZ LCOMPLEMENT COMPONENT [id number] 05:47:37 Test Item Value Reference Range Interpretation Comments C4 COMPLEMENT (BEAKER) (test code = 6 mg/dL 15-57 L 394) Railroad Detective ID - MARIBEL LPROTHROMBIN TIME/[id number] 05:32:34 Test Item Value Reference Range Interpretation Comments PROTIME (BEAKER) 16.8 seconds 11.9-14.2 H (test code = 759) INR (BEAKER) (test 1.39 See_Comment [Automat ed message] code = 370) The system whic h generated this result transmitted ref erence range: <=5.90. The reference range was not used to int erpret this result as normal/abnormal . RECOMMENDED COUMADIN/WARFARIN INR THERAPY RANGESSTANDARD DOSE: 2.0 - 3.0 Includes: PROPHYLAXIS for venous thrombosis, systemic embolization; TREATMENT for venous thrombosis and/or pulmonary embolus.HIGH RISK: Target INR is 2.5-3.5 for patients with mechanical heart valves.Urinalysis w/[id number] 00:48:22 Test Item Value Reference Range Interpretation Comments Color, UA (test code Yellow = 5778-6) Clarity, UA (test Clear code = 5767-9) Specific [place], UA 1.023 1.001-1.035 (test code = 5811-5) pH, UA (test code = 6.5 5.0-8.0 5803-2) Protein, UA (test Negative Negative code = 94121-1) Glucose, UA (test 50 mg/dL Negative A code = 365) Ketones, UA (test Trace Negative A code = 2514-8) Bilirubin, UA (test Negative Negative code = 41471-5) Blood, UA (test code Negative Negative = 60411-8) Nitrite, UA (test Negative Negative code = 5802-4) Leukocytes, UA (test Trace Negative A code = 5799-2) Urobilinogen, UA 0.2 mg/dL 0.2-1.0 (test code = 62268-9) RBC, UA (test code = 2 See_Comment [Autom ated 13535-5) message] The system which generated this result [...] . Bacteria, UA (test Moderate code = 22889-7) Mucus (test code = Occasional 8247-9) Hyaline Casts, UA 4 See_Comment [Automate d (test code = 71520-6) messag e] The system which generated this result transmitted reference range : /LPF. The reference range was not used to interpret this result as normal/abnormal . Crystals, Urine (test None Seen code = 18137-2) Specimen Source (test code = 2795) IDALIA (test code = IDALIA) Railroad Detective ID - [auto]Railroad Detective ID - tech Lab Interpretation Abnormal (test code = 15739-8) [facility]/ [id number] 00:48:22 Test Item Value Reference Range Interpretation [...] = 1521) SOURCE(BEAKER) (test code = 2795) Railroad Detective ID - [auto]Railroad Detective ID - techProtein, random [id number] 23:18:26 Test Item Value Reference Range Interpretation Comments Protein, Urine (test code 21 mg/dL 0-14 H = 2888-6) IDALIA (test code = IDALIA) Railroad Detective ID - MARIBEL L Lab Interpretation (test Abnormal code = 51542-2) [facility] CenterProtein, random [id number] 23:18:26 Test Item Value Reference Range Interpretation Comments Protein, Urine (test code 21 mg/dL 0-14 H = 2888-6) IDALIA (test code = IDALIA) Railroad Detective ID - PIAYA L Lab Interpretation (test Abnormal code = 98384-0) [facility] CenterProtein, random [id number] 23:18:26 Test Item Value Reference Range Interpretation Comments Protein, Urine (test code 21 mg/dL 0-14 H = 2888-6) IDALIA (test code = IDALIA) Railroad Detective ID - PIAYA L Lab Interpretation (test Abnormal code = 87189-7) [facility] CenterProtein, random [id number] 23:18:26 Test Item Value Reference Range Interpretation Comments Protein, Urine (test code 21 mg/dL 0-14 H = 2888-6) IDALIA (test code = IDALIA) Railroad Detective ID - PIAYA L Lab Interpretation (test Abnormal code = 44429-4) [facility] CenterPROTEIN, RANDOM [id number] 23:18:26 Test Item Value Reference Range Interpretation Comments PROTEIN, URINE (BEAKER) (test code = 21 mg/dL 0-14 H 1569) Railroad Detective ID - MARIBEL LCreatinine, random [id number] 23:18:25 Test Item Value Reference Range Interpretation Comments Creatinine, Ur 99.7 mg/dL (test code = 2161-8) IDALIA (test code = Reference Range: No IDALIA) NormalsOperator ID - PIAYA L [facility] CenterCreatinine, random [id number] 23:18:25 Test Item Value Reference Range Interpretation Comments Creatinine, Ur 99.7 mg/dL (test code = 2161-8) IDALIA (test code = Reference Range: No IDALIA) NormalsOperator ID - PIAYA L [facility] CenterCreatinine, random [id number] 23:18:25 Test Item Value Reference Range Interpretation Comments Creatinine, Ur 99.7 mg/dL (test code = 2161-8) IDALIA (test code = Reference Range: No IDALIA) NormalsOperator ID - MARIBEL [facility]ine, random [id number] 23:18:25 Test Item Value Reference Range Interpretation Comments Creatinine, Ur 99.7 mg/dL (test code = 2161-8) IDALIA (test code = Reference Range: No IDALIA) NormalsOperator ID Cherelle Inman [facility], RANDOM [id number] 23:18:25 Test Item Value Reference Range Interpretation Comments CREATININE URINE (BEAKER) (test 99.7 mg/dL code = 375) Reference Range: No NormalsOperator ID - MARIBEL LPOCT-GLUCOSE [id number] 10:32:21 Test Item Value Reference Range Interpretation Comments POC-GLUCOSE METER 110 mg/dL 70-110 : TESTED A T [facility] [address] ([facility]) (test code = [address] [place], 1538) [address]: Railroad Detective/Techni dakota ID = [id number] for [facility] HEMOGLOBIN [id number] 10:26:45 Test Item Value Reference Range Interpretation Comments HEMOGLOBIN A1C 5.3 % See_Comment [Automated m essage] ELECTROPHORESIS (AKER) The system [...] 5.7- 6.4% indicates increased risk for diabetes (prediabetes)."Railroad Detective ID - ADM HEPATIC FUNCTION [id number] 10:19:31 Test Item Value Reference Range Interpretation [...] Specimen slightly (test code = 347) hemolyzed Railroad Detective ID - PIAYA LBASIC METABOLIC [id number] 10:19:30 Test Item Value Reference Range Interpretation [...] S NOT APPLICABLE FOR DIALYSIS PATIEN TS. Railroad Detective ID - PIAYA LLIPID [id number] 10:19:30 Test Item Value Reference Range Interpretation [...] Borderline 130-159 High 160-189 Very High >=190 Railroad Detective ID - MARIBEL [id number] 10:19:29 Test Item Value Reference Range Interpretation Comments MAGNESIUM (BEAKER) 1.5 mg/dL 1.6-2.6 L Specimen slightly (test code = 627) hemolyzed Railroad Detective ID - MARIBEL [id number] 10:19:29 Test Item Value Reference Range Interpretation Comments PHOSPHORUS (BEAKER) 3.9 mg/dL 2.3-4.7 Specimen slightly (test code = 604) hemolyzed Railroad Detective BEATRIZ LÓPEZ LCBC W/PLT COUNT & AUTO [id number] 06:19:38 Test Item Value Reference Range Interpretation [...] (BEAKER) (test code = 2801) COMPREHENSIVE METABOLIC [id number] 14:20:15 Test Item Value Reference Range Interpretation [...] S NOT APPLICABLE FOR DIALYSIS PATIEN TS. Railroad Detective ID - MARIBEL [id number] 14:20:15 Test Item Value Reference Range Interpretation Comments LIPASE (BEAKER) (test code = 749) 8 U/L 8-78 Railroad Detective ID - MARIBEL NEGRONACTIC ACID, [id number] 14:16:12 Test Item Value Reference Range Interpretation Comments LACTATE BLOOD VENOUS 1.09 mmol/L 0.50-2.20 Specime n slightly (2) (BEAKER) (test hemolyzed code = 1200) Railroad Detective ID - MARIBEL [id number] 14:09:56 Test Item Value Reference Range Interpretation Comments PARTIAL THROMBOPLASTIN TIME 28.8 seconds 22.5-36.0 (BEAKER) (test code = 760) PROTHROMBIN [id number] 14:09:14 Test Item Value Reference Range Interpretation Comments PROTIME (BEAKER) 16.6 seconds 11.9-14.2 H (test code = 759) INR (BEAKER) (test 1.37 See_Comment [Automat ed message] code = 370) The system CHARMS PPEC generated this result transmitted ref erence range: <=5.90. The reference range was not used to int erpret this result as normal/abnormal . RECOMMENDED COUMADIN/WARFARIN INR THERAPY RANGESSTANDARD DOSE: 2.0 - 3.0 Includes: PROPHYLAXIS for venous thrombosis, systemic embolization; TREATMENT for venous thrombosis and/or pulmonary embolus.HIGH RISK: Target INR is 2.5-3.5 for patients with mechanical heart valves.CBC W/PLT COUNT & AUTO [id number] 14:03:40 Test Item Value Reference Range Interpretation [...] PERCENT (BEAKER) (test code = 2801) POCT-GLUCOSE [id number] 13:55:45 Test Item Value Reference Range Interpretation Comments POC-GLUCOSE METER 86 mg/dL 70-110 : TESTED A T [facility] 6720 (BEAKER) (test code = [place], 1538) [address]: Railroad Detective/Techni dakota ID = [id number] for [employer] culture + smear (non-sputum)2021-11-16 10:41:32 Test Item Value Reference Range Interpretation Comments Result (test code = No acid-fast bacilli 6463-4) isolated in 42 days AFB Smear (test code = No acid fast bacilli 70656-8) [facility]sputum)2021-11-16 10:41:32 Test Item Value Reference Range Interpretation Comments Result (test code = No acid-fast bacilli 6463-4) isolated in 42 days AFB Smear (test code = No acid fast bacilli 61100-6) [facility] (non-sputum)2021-11-16 10:41:32 Test Item Value Reference Range Interpretation Comments Result (test code = No acid-fast bacilli 6463-4) isolated in 42 days AFB Smear (test code = No acid fast bacilli 80215-3) [facility] (NON-SPUTUM)2021-11-16 10:41:32 Test Item Value Reference Range Interpretation Comments CULTURE (BEAKER) (test No acid-fast bacilli code = 1095) isolated in 42 days AFB SMEAR (BEAKER) No acid fast bacilli (test code = 994) seen Fungus culture + [id number] 17:16:53 Test Item Value Reference Range Interpretation Comments Result (test code = No fungus isolated in 6463-4) 28 days Fungus Smear (test No fungi seen code = 1406) [facility] + [id number] 17:16:53 Test Item Value Reference Range Interpretation Comments Result (test code = No fungus isolated in 6463-4) 28 days Fungus Smear (test No fungi seen code = 1406) [facility] + [id number] 17:16:53 Test Item Value Reference Range Interpretation Comments Result (test code = No fungus isolated in 6463-4) 28 days Fungus Smear (test No fungi seen code = 1406) [facility] + [id number] 17:16:53 Test Item Value Reference Range Interpretation Comments CULTURE (BEAKER) (test No fungus isolated in code = 1095) 28 days FUNGUS SMEAR (BEAKER) No fungi seen (test code = 1406) - CT ABDOMEN W W/O [id number] 15:32:00 [facility] 2000 Sex: M FAX: Willard Vaughn Jr [phone] [place]: St: REG Name: VANGIE OVALLE [facility] : 2000 Age/S: 21/M [address] Unit: [id number] Loc: [place] [address] Phys: Willard Crouch Jr, MD Acct: [id number] Dis Date: Status: REG CLI PHONE #: [phone] Exam Date: 10/23/2021 1445 FAX #: [phone]: ABDOMINAL ABSCESSES EXAMS: CPT CODE: [id number] CT ABDOMEN W W/O CONTRAST 25724 EXAMINATION:- CT ABDOMEN W W/O CONTRAST INDICATION: ABDOMINAL ABSCESSES COMPARISON: 09/27/2021 LOCATION: C3 TECHNIQUE: CT abdomen and pelvis was performed without and with IV contrast. Contrasted scans performed inthe venous phase(s) of enhancement. Sagittal and coronal reformatted images were created. This exam was performed according to our departmental dose optimization program, which includes automated exposure control, adjustment of the mA and/or kV according to patient size, and/or use of iterative reconstruction technique. FINDINGS: Borderline mild hepatic steatosis with otherwise unremarkable liver. Mild splenomegaly with calcified granulomas. Gallbladder, adrenal glands, and kidneys are unremarkable.Air-fluid collections are again seen in region of pancreatic tail tracking down the left paracolic gutter. A reference component along the splenic hilum measures 5.3 x 2.8 cm, previously 7.8 x 3.6 cm at similar level. No definite finding of pancreatic necrosis. An additional air- fluid collection is seen in the right paracolic [...] Signed Report (CONTINUED) FAX: Willard Vaughn Jr [phone] [place]: St: REG -- Name: YAMILEVANGIE [facility] : 2000 Age/S: 21/M [address] Unit: [id number] Loc: [place] [address] Phys: Willard Crouch Jr, MD Acct: [id number] Dis Date: Status: REG CLI PHONE #:[phone] Exam Date: 10/23/2021 1445 FAX #: [phone] Reason: ABDOMINAL ABSCESSES EXAMS: CPT C ODE: [id number] CT ABDOMEN W W/O CONTRAST 38279 (Continued) Imaged lower chest demonstrates mild bibasilar atelectasis. No acute osseous abnormality identified. IMPRESSION: Following interval drain placements, overall quantity of air-fluid collections has partially improved. at 1532 Reported and signed by: Sabas Grey MD CC: Willard Crouch Jr Technologist: DORENE WHITTAKER, RT(R,CT); MATTY CLINTON Trnscrd Dt/Tm: 10/23/2021 (1532) [id number] OrigPrint D/T: S: 10/23/2021 (1536 PAGE 2 Signed ReportPOCT-GLUCOSE [id number] 12:03:00 Test Item Value Reference Range Interpretation Comments POC-GLUCOSE METER 147 mg/dL 70-110 H : TESTED A T [facility] 6720 (BEAKER) (test code = [facility], 1538) 69856: Railroad Detective/Techni dakota ID = [id number] for Roberto Carlos Singh POCT-GLUCOSE [id number] 07:25:56 Test Item Value Reference Range Interpretation Comments POC-GLUCOSE METER 108 mg/dL 70-110 : TESTED A T [facility] 6720 (BEAKER) (test code = [facility], 1538) 91728: Railroad Detective/Techni dakota ID = [id number] for Ob asogie, Ufumwen [id number] 06:30:28 Test Item Value Reference Range Interpretation Comments PHOSPHORUS (BEAKER) (test code = 3.1 mg/dL 2.3-4.7 604) Railroad Detective ID - DBHEPATIC FUNCTION [id number] 06:30:28 Test Item Value Reference Range Interpretation [...] (test code = 9 U/L 6-55 347) Railroad Detective ID - DBBASIC METABOLIC [id number] 06:30:27 Test Item Value Reference Range Interpretation [...] S NOT APPLICABLE FOR DIALYSIS PATIEN TS. Railroad Detective ID - [id number] 06:30:27 Test Item Value Reference Range Interpretation Comments MAGNESIUM (BEAKER) (test code = 1.6 mg/dL 1.6-2.6 627) Railroad Detective ID - DBCBC W/PLT COUNT & AUTO [id number] 06:18:45 Test Item Value Reference Range Interpretation [...] PERCENT (BEAKER) (test code = 2801) POCT-GLUCOSE [id number] 22:04:31 Test Item Value Reference Range Interpretation Comments POC-GLUCOSE METER 148 mg/dL 70-110 H : TESTED A T [facility] 6720 (BEAKER) (test code = [place], 1538) [address]: Railroad Detective/Techni dakota ID = [id number] for JOANN RANDOLPH POCT-GLUCOSE [id number] 17:21:06 Test Item Value Reference Range Interpretation Comments POC-GLUCOSE METER 231 mg/dL 70-110 H : TESTED A T [facility] 6720 (BEAKER) (test code = [facility], 1538) 77188: Railroad Detective/Techni dakota ID = [id number] for ERNST FRANCOIS Anaerobic [id number] 13:55:46 Test Item Value Reference Range Interpretation Comments Result (test code = No anaerobes isolated 6463-4) [facility] [id number] 13:55:46 Test Item Value Reference Range Interpretation Comments CULTURE (BEAKER) (test No anaerobes isolated code = 1095) BASIC METABOLIC [id number] 12:01:25 Test Item Value Reference Range Interpretation [...] S NOT APPLICABLE FOR DIALYSIS PATIEN TS. Railroad Detective ID - ALVINA EPATIC FUNCTION [id number] 12:01:25 Test Item Value Reference Range Interpretation [...] (test code = 9 U/L 6-55 347) Railroad Detective ID - ALVINA MOperator ID - ALVINA [id number] 12:01:24 Test Item Value Reference Range Interpretation Comments PHOSPHORUS (BEAKER) (test code = 3.8 mg/dL 2.3-4.7 604) Railroad Detective ID - ALVINA [id number] 12:01:19 Test Item Value Reference Range Interpretation Comments MAGNESIUM (BEAKER) (test code = 1.5 mg/dL 1.6-2.6 L 627) Railroad Detective ID - ALVINA MPOCT-GLUCOSE [id number] 11:54:19 Test Item Value Reference Range Interpretation Comments POC-GLUCOSE METER 110 mg/dL 70-110 : TESTED A T [facility] 6720 (BEAKER) (test code = [place], 1538) 27581: Railroad Detective/Techni dakota ID = [id number] for [place] LLIS, ERNST CBC W/PLT COUNT & AUTO [id number] 11:25:49 Test Item Value Reference Range Interpretation [...] PERCENT (BEAKER) (test code = 2801) POCT-GLUCOSE [id number] 09:39:11 Test Item Value Reference Range Interpretation Comments POC-GLUCOSE METER 87 mg/dL 70-110 : TESTED A T [facility] 6720 (BEAKER) (test code = [place], 1538) 88333: Railroad Detective/Techni dakota ID = [id number] for QUAR TMAN, DELMAR SARS-COV2/RT-PCR ([facility])2021-10-09 04:10:06 Test Item Value Reference Range Interpretation Comments SARS-COV2/RT-PCR (test Negative Not Detected, Negative, code = 2415224) See external report for linked test SARS-COV-2 PERFORMING LAB [facility] SHAUNA (test code = 8718645) Negative result for this test determines that [...] of the Act.Fact Sheet for Healthcare Prov iders:https://www.MediaMath.[employer]/sites/default/files/product/documents/Fact_Sheet_HC _Qdvwezhig_Vcoh_XYLO-EoX-8.pdfFact Sheet for Healthcare Patients:https://www.MediaMath.[employer]/sites/default/files/product/docume nts/Npth_Ydvsv_Lkfsynkf_Pnue_XNXW-UgH-9.pdfPerforming Laboratory:[facility], [place] [address]DOUT-SHLNIHJ METER 2021-10-08 20:41:51 Test Item Value Reference Range Interpretation Comments POC-GLUCOSE METER 102 mg/dL 70-110 : Notified RN/MD: (BEAKER) (test code = TESTED AT [facility] 6720 1538) [facility], [address]: Railroad Detective/Techni dakota ID = [id number] for HEATH GRANDE POCT-GLUCOSE [id number] 17:43:36 Test Item Value Reference Range Interpretation Comments POC-GLUCOSE METER 93 mg/dL 70-110 : [facility] (test code = [facility], 1538) 97137: Railroad Detective/Techni dakota ID = [id number] for [facility] Peña POCT-GLUCOSE [id number] 12:09:22 Test Item Value Reference Range Interpretation Comments POC-GLUCOSE METER 93 mg/dL 70-110 : [facility] (BEAKER[facility] (test code = [facility], 1538) 69323: Railroad Detective/Techni dakota ID = [id number] for Tequila holloway, Umeshree POCT-GLUCOSE [id number] 08:51:46 Test Item Value Reference Range Interpretation Comments POC-GLUCOSE METER 95 mg/dL 70-110 : [facility] ([facility]ER[facility] (test code = [facility], 1538) 41134: Railroad Detective/Techni dakota ID = [id number] for Bhag jewel, Rajdomingaree [id number] 05:23:25 Test Item Value Reference Range Interpretation Comments PHOSPHORUS (BEAKER) (test code = 3.1 mg/dL 2.3-4.7 604) Railroad Detective ID - PIAYA LHEPATIC FUNCTION [id number] 05:23:25 Test Item Value Reference Range Interpretation [...] (test code = 11 U/L 6-55 347) Railroad Detective ID Cherelle LÓPEZ LBASIC METABOLIC [id number] 05:23:24 Test Item Value Reference Range Interpretation [...] S NOT APPLICABLE FOR DIALYSIS PATIEN TS. Railroad Detective ID - MARIBEL [id number] 05:23:24 Test Item Value Reference Range Interpretation Comments MAGNESIUM (BEAKER) (test code = 1.4 mg/dL 1.6-2.6 L 627) Railroad Detective ID - MARIBEL LCBC W/PLT COUNT & AUTO [id number] 04:49:36 Test Item Value Reference Range Interpretation [...] PERCENT (BEAKER) (test code = 2801) POCT-GLUCOSE [id number] 21:40:30 Test Item Value Reference Range Interpretation Comments POC-GLUCOSE METER 135 mg/dL 70-110 H : TESTED A T [facility] 6720 (BEAKER) (test code = [place], 1538) 422[address]: Railroad Detective/Techni dakota ID = [id number] for MARTINE VASQUEZ POCT-GLUCOSE [id number] 16:34:48 Test Item Value Reference Range Interpretation Comments POC-GLUCOSE METER 177 mg/dL 70-110 H : TESTED A T [facility] 6720 (BEAKER) (test code = [facility], 1538) 59875: Railroad Detective/Techni dakota ID = [id number] for QUEEN HONEYCUTT POCT-GLUCOSE [id number] 11:09:04 Test Item Value Reference Range Interpretation Comments POC-GLUCOSE METER 156 mg/dL 70-110 H : TESTED A T [facility] 6720 (BEAKER) (test code = [facility], 1538) 85736: Railroad Detective/Techni dakota ID = [id number] for QUEEN HONEYCUTT POCT-GLUCOSE [id number] 07:50:39 Test Item Value Reference Range Interpretation Comments POC-GLUCOSE METER 69 mg/dL 70-110 L : TESTED A T [facility] 6720 (BEAKER) (test code = [facility], 1538) 97617: Railroad Detective/Techni dakota ID = [id number] for QUEEN JACOBSEN HEPATIC FUNCTION [id number] 04:46:43 Test Item Value Reference Range Interpretation [...] (test code = 11 U/L 6-55 347) Railroad Detective ID - ALVINA [id number] 04:46:42 Test Item Value Reference Range Interpretation Comments MAGNESIUM (BEAKER) (test code = 1.4 mg/dL 1.6-2.6 L 627) Railroad Detective ID - ALVINA [id number] 04:46:42 Test Item Value Reference Range Interpretation Comments PHOSPHORUS (BEAKER) (test code = 2.6 mg/dL 2.3-4.7 604) Railroad Detective ID - ALVINA MBASIC METABOLIC [id number] 04:46:41 Test Item Value Reference Range Interpretation [...] S NOT APPLICABLE FOR DIALYSIS PATIEN TS. Railroad Detective ID Cherelle TINSLEY MPOCT-GLUCOSE [id number] 21:32:38 Test Item Value Reference Range Interpretation Comments POC-GLUCOSE METER 175 mg/dL 70-110 H : TESTED A T [facility] 6720 (BEAKER) (test code = [facility], 1538) 439[address]: Railroad Detective/Techni dakota ID = [id number] for NG O, BRIGIDA POCT-GLUCOSE [id number] 16:48:18 Test Item Value Reference Range Interpretation Comments POC-GLUCOSE METER 217 mg/dL 70-110 H : TESTED A T [facility] 6720 (BEAKER) (test code [facility], = 1538) 79208: Railroad Detective/Techni dakota ID = [id number] for Bhag jewel, Rajashree POCT-GLUCOSE [id number] 12:45:58 Test Item Value Reference Range Interpretation Comments POC-GLUCOSE METER 158 mg/dL 70-110 H : TESTED A T [facility] 6720 (BEAKER) (test code [place], = 1538) 34238: Railroad Detective/Techni dakota ID = [id number] for [facility] Peña HEPATIC FUNCTION [id number] 06:44:11 Test Item Value Reference Range Interpretation [...] (test code = 11 U/L 6-55 347) Railroad Detective ID - ALVINA [id number] 06:44:10 Test Item Value Reference Range Interpretation Comments PHOSPHORUS (BEAKER) (test code = 2.4 mg/dL 2.3-4.7 604) Railroad Detective ID - ALVINA MBASIC METABOLIC [id number] 06:44:09 Test Item Value Reference Range Interpretation [...] S NOT APPLICABLE FOR DIALYSIS PATIEN TS. Railroad Detective ID - ALVINA [id number] 06:44:09 Test Item Value Reference Range Interpretation Comments MAGNESIUM (BEAKER) (test code = 1.5 mg/dL 1.6-2.6 L 627) Railroad Detective ID - ALVINA MCBC W/PLT COUNT & AUTO [id number] 06:09:40 Test Item Value Reference Range Interpretation [...] PERCENT (BEAKER) (test code = 2801) BLOOD [id number] 23:00:53 Test Item Value Reference Range Interpretation Comments CULTURE (BEAKER) (test No growth in 5 days code = 1095) The specimen volume collected for this blood culture was below the optimum (10 mL per bottle or 20 mL total). Use of lower volumes may adversely affect recovery and/or detection times of some organisms.BLOOD [id number] 23:00:53 Test Item Value Reference Range Interpretation Comments CULTURE (BEAKER) (test No growth in 5 days code = 1095) POCT-GLUCOSE [id number] 21:19:41 Test Item Value Reference Range Interpretation Comments POC-GLUCOSE METER 154 mg/dL 70-110 H : TESTED A T [facility] 6720 (BEAKER) (test code = [facility], 153) 41512: Railroad Detective/Techni dakota ID = [id number] for Shabbir schneider (contract)Palake POCT-GLUCOSE [id number] 16:32:34 Test Item Value Reference Range Interpretation Comments POC-GLUCOSE METER 168 mg/dL 70-110 H : TESTED A T [facility] 6720 (BEAKER) (test code = [facility], 153) 01449: Railroad Detective/Techni dakota ID = [id number] for [place] LLIS, ERNST POCT-GLUCOSE [id number] 11:36:04 Test Item Value Reference Range Interpretation Comments POC-GLUCOSE METER 120 mg/dL 70-110 H : TESTED A T [facility] 6720 (BEAKER) (test code = [facility], 153) 56330: Railroad Detective/Techni dakota ID = [id number] for ERNST FRANCOIS SARS-COV2/RT-PCR ([facility])2021-10-05 10:25:30 Test Item Value Reference Range Interpretation Comments SARS-COV2/RT-PCR (test Negative Not Detected, Negative, code = 9236708) See external report for linked test SARS-COV-2 PERFORMING LAB [facility] SHAUNA (test code = 7582076) Negative result for this test determines that [...] of the Act.Fact Sheet for Healthcare Prov iders:https://www.[employer]/sites/default/files/product/documents/Fact_Sheet_HC _Ltywgenif_Oogk_IYEK-OtL-3.pdfFact Sheet for Healthcare Patients:https://www.Media[employer]/sites/default/files/product/docume nts/Ncma_Hccfd_Gthqvpbn_Rywo_EXZA-ZqG-4.pdfPerforming Laboratory:[facility], [place] [address]AZWS-AWMZCTA METER 2021-10-05 08:03:30 Test Item Value Reference Range Interpretation Comments POC-GLUCOSE METER 109 mg/dL 70-110 : TESTED A T [facility] 6720 (BEAKER) (test code = [place], 1538) 10[address]: Railroad Detective/Techni dakota ID = [id number] for ERNST FRANCOIS HEPATIC FUNCTION [id number] 07:35:20 Test Item Value Reference Range Interpretation [...] (test code = 12 U/L 6-55 347) Railroad Detective ID - MARIBEL LOperator ID - [id number] 06:55:48 Test Item Value Reference Range Interpretation Comments MAGNESIUM (BEAKER) (test code = 1.6 mg/dL 1.6-2.6 627) Railroad Detective ID - MARIBEL [id number] 06:55:48 Test Item Value Reference Range Interpretation Comments PHOSPHORUS (BEAKER) (test code = 2.1 mg/dL 2.3-4.7 L 604) Railroad Detective ID - MARIBEL LBASIC METABOLIC [id number] 06:55:47 Test Item Value Reference Range Interpretation [...] S NOT APPLICABLE FOR DIALYSIS PATIEN TS. Railroad Detective ID - PIAYA LCBC W/PLT COUNT & AUTO [id number] 06:21:14 Test Item Value Reference Range Interpretation [...] PERCENT (BEAKER) (test code = 2801) POCT-GLUCOSE [id number] 21:22:59 Test Item Value Reference Range Interpretation Comments POC-GLUCOSE METER 192 mg/dL 70-110 H : TESTED A T [facility] 6720 (BEAKER) (test code = [facility], 153) 74589: Railroad Detective/Techni dakota ID = [id number] for Shabbir schneider (contract) Palak hendersonalejandro POCT-GLUCOSE [id number] 17:34:11 Test Item Value Reference Range Interpretation Comments POC-GLUCOSE METER 201 mg/dL 70-110 H : TESTED A T [facility] 6720 (BEAKER) (test code = [facility], 153) 91809: Railroad Detective/Techni dakota ID = [id number] for Amrita sheikh, Valentinoija POCT-GLUCOSE [id number] 12:07:46 Test Item Value Reference Range Interpretation Comments POC-GLUCOSE METER 103 mg/dL 70-110 : TESTED A T [facility] 6720 (BEAKER) (test code = [facility], 153) 69180: Railroad Detective/Techni dakota ID = [id number] for ERNST FRANCOIS SURGICALLY OBTAINED CULTURE + GRAM [id number] 09:10:42 Test Item Value Reference Range Interpretation [...] gram negative (BEAKER) (test code = rods 767563) HEPATIC FUNCTION [id number] 07:01:07 Test Item Value Reference Range Interpretation [...] (test code = 12 U/L 6-55 347) Railroad Detective ID - BISI [id number] 07:01:06 Test Item Value Reference Range Interpretation Comments PHOSPHORUS (BEAKER) (test code = 2.8 mg/dL 2.3-4.7 604) Railroad Detective ID - BISI GBASIC METABOLIC [id number] 07:01:05 Test Item Value Reference Range Interpretation [...] S NOT APPLICABLE FOR DIALYSIS PATIEN TS. Railroad Detective ID - BISI [id number] 07:01:05 Test Item Value Reference Range Interpretation Comments MAGNESIUM (BEAKER) (test code = 1.6 mg/dL 1.6-2.6 627) Railroad Detective ID - BISI GCBC W/PLT COUNT & AUTO [id number] 06:35:47 Test Item Value Reference Range Interpretation [...] PERCENT (BEAKER) (test code = 2801) POCT-GLUCOSE [id number] 16:48:07 Test Item Value Reference Range Interpretation Comments POC-GLUCOSE METER 113 mg/dL 70-110 H : TESTED A T [facility] 6720 (BEAKER) (test code = [facility], 153) 57806: Railroad Detective/Techni dakota ID = [id number] for LO MARVEL, MASON POCT-GLUCOSE [id number] 11:46:29 Test Item Value Reference Range Interpretation Comments POC-GLUCOSE METER 116 mg/dL 70-110 H : TESTED A T [facility] 6720 (BEAKER) (test code = [facility], 153) 82034: Railroad Detective/Techni dakota ID = [id number] for LO MARVEL, MASON ANTI-DNA [id number] 11:16:17 Test Item Value Reference Range Interpretation Comments ANTI-DNA TITER (BEAKER) (test code = :80 1553) DOUBLE-STRANDED DNA (DSDNA) [id number] 11:16:05 Test Item Value Reference Range Interpretation Comments ANTI-DNA DS (BEAKER) (test code = Positive Negative 1055) ANAEROBIC [id number] 08:30:44 Test Item Value Reference Range Interpretation Comments CULTURE (BEAKER) (test No anaerobes isolated code = 1095) HEPATIC FUNCTION [id number] 05:47:57 Test Item Value Reference Range Interpretation [...] Specimen slightly (test code = 347) hemolyzed Railroad Detective ID - PIAYA LBASIC METABOLIC [id number] 05:47:56 Test Item Value Reference Range Interpretation [...] S NOT APPLICABLE FOR DIALYSIS PATIEN TS. Railroad Detective ID - MARIBEL [id number] 05:47:55 Test Item Value Reference Range Interpretation Comments PHOSPHORUS (BEAKER) 4.6 mg/dL 2.3-4.7 Specimen slightly (test code = 604) hemolyzed Railroad Detective ID - PIJOVI [id number] 05:47:54 Test Item Value Reference Range Interpretation Comments MAGNESIUM (BEAKER) 1.9 mg/dL 1.6-2.6 Specimen slightly (test code = 627) hemolyzed Railroad Detective ID - MARIBEL LCBC (HEMOGRAM ONLY)2021-10-03 05:23:39 [...] 0-0 (BEAKER) (test code = 413) POCT-GLUCOSE [id number] 05:08:33 Test Item Value Reference Range Interpretation Comments POC-GLUCOSE METER 102 mg/dL 70-110 : Notified RN/MD: (BEAKER) (test code = TESTED AT [facility] 2459 1210) [facility], [address]: Railroad Detective/Techni dakota ID = [id number] for Aaron Paul BASIC METABOLIC [id number] 21:11:22 Test Item Value Reference Range Interpretation [...] S NOT APPLICABLE FOR DIALYSIS PATIEN TS. Railroad Detective ID - [id number] 21:10:34 Test Item Value Reference Range Interpretation Comments PHOSPHORUS (BEAKER) (test code = 4.2 mg/dL 2.3-4.7 604) Railroad Detective ID - [id number] 21:10:33 Test Item Value Reference Range Interpretation Comments MAGNESIUM (BEAKER) (test code = 1.4 mg/dL 1.6-2.6 L 627) Railroad Detective ID - ADMINCBC (HEMOGRAM ONLY)2021-10-02 20:57:35 Test [...] 0-0 (BEAKER) (test code = 413) POCT-GLUCOSE [id number] 19:48:59 Test Item Value Reference Range Interpretation Comments POC-GLUCOSE METER 104 mg/dL 70-110 : TESTED A T [facility] 6720 (BEAKER) (test code = [place], 1538) 26617: Railroad Detective/Techni dakota ID = [id number] for Marcio Guerra HGB/HCT (H&H)-Stat [id number] 18:09:55 Test Item Value Reference Range Interpretation Comments Hemoglobin (test code = 10.2 See_Comment L [Au tomated message] 786-4) The system CHARMS PPEC generated this result transmitted ref erence range: 13.0 - 1 6.8 GM/DL. The refe rence range was not u sed to interpret this result as normal/abnor mal. Hematocrit (test code = 30.0 % 40.0-50.0 L 4544-3) Lab Interpretation (test Abnormal code = 40808-0) [facility] [id number] 18:09:55 Test Item Value Reference Range Interpretation Comments Hemoglobin (test code = 10.2 See_Comment L [Au tomated message] 786-4) The system CHARMS PPEC generated this result transmitted ref erence range: 13.0 - 1 6.8 GM/DL. The refe rence range was not u sed to interpret this result as normal/abnor mal. Hematocrit (test code = 30.0 % 40.0-50.0 L 4544-3) Lab Interpretation (test Abnormal code = 01709-2) [facility] [id number] 18:09:55 Test Item Value Reference Range Interpretation Comments Hemoglobin (test code = 10.2 See_Comment L [Au tomated message] 786-4) The system CHARMS PPEC generated this result transmitted ref erence range: 13.0 - 1 6.8 GM/DL. The refe rence range was not u sed to interpret this result as normal/abnor mal. Hematocrit (test code = 30.0 % 40.0-50.0 L 4544-3) Lab Interpretation (test Abnormal code = 62514-4) [facility] [id number] 18:09:55 Test Item Value Reference Range Interpretation Comments Hemoglobin (test code = 10.2 See_Comment L [Au tomated message] 786-4) The system CHARMS PPEC generated this result transmitted ref erence range: 13.0 - 1 6.8 GM/DL. The refe rence range was not u sed to interpret this result as normal/abnor mal. Hematocrit (test code = 30.0 % 40.0-50.0 L 4544-3) Lab Interpretation (test Abnormal code = 97931-2) [facility] - STAT [id number] 18:09:55 Test Item Value Reference Range Interpretation Comments HEMOGLOBIN (BEAKER) (test code = 10.2 GM/DL 13.0-16.8 L 410) HEMATOCRIT (BEAKER) (test code = 30.0 % 40.0-50.0 L 411) Sodium Na-Stat [id number] 18:09:54 Test Item Value Reference Range Interpretation Comments Sodium (test code = 2951-2) 130 meq/L 136-145 L Lab Interpretation (test code = Abnormal 23533-3) [facility] [id number] 18:09:54 Test Item Value Reference Range Interpretation Comments Sodium (test code = 2951-2) 130 meq/L 136-145 L Lab Interpretation (test code = Abnormal 69666-3) [facility] [id number] 18:09:54 Test Item Value Reference Range Interpretation Comments Sodium (test code = 2951-2) 130 meq/L 136-145 L Lab Interpretation (test code = Abnormal 18501-1) [facility]Stat [id number] 18:09:54 Test Item Value Reference Range Interpretation Comments Sodium (test code = 2951-2) 130 meq/L 136-145 L Lab Interpretation (test code = Abnormal 49507-2) [facility] [id number] 18:09:54 Test Item Value Reference Range Interpretation Comments SODIUM (BEAKER) (test code = 381) 130 meq/L 136-145 L Blood gas, [id number] 18:09:53 Test Item Value Reference Range Interpretation Comments pH, Arterial (test code 7.50 7.35-7.45 H = 2744-1) pCO2, Arterial (test 35 See_Comment [Autom ated message] code = 2019-8) The system conXt generated this result transmit hernandez reference range : 35 - 45 mm Hg. The reference range was not used to interpret this result as normal/abnormal . pO2, Arterial (test 139 See_Comment H [Automa hernandez message] code = 2703-7) The system conXt generated this result transmit hernandez reference range [...] 8310-5) Lab Interpretation Abnormal (test code = 52211-6) [facility] gas, [id number] 18:09:53 Test Item Value Reference Range Interpretation Comments pH, Arterial (test code 7.50 7.35-7.45 H = 2744-1) pCO2, Arterial (test 35 See_Comment [Autom ated message] code = 2018-) The system [facility] generated this result transmit hernandez reference range : 35 - 45 mm Hg. The reference range was not used to interpret this result as normal/abnormal . pO2, Arterial (test 139 See_Comment H [Automa hernandez message] code = 2703-7) The system [facility] generated this result transmit hernandez reference range [...] 8310-5) Lab Interpretation Abnormal (test code = 57942-9) [facility] gas, [id number] 18:09:53 Test Item Value Reference Range Interpretation Comments pH, Arterial (test code 7.50 7.35-7.45 H = 2744-1) pCO2, Arterial (test 35 See_Comment [Autom ated message] code = 2018-12) The system [facility] generated this result transmit hernandez reference range : 35 - 45 mm Hg. The reference range was not used to interpret this result as normal/abnormal . pO2, Arterial (test 139 See_Comment H [Automa hernandez message] code = 2703-7) The system [facility] generated this result transmit hernandez reference range [...] 8310-5) Lab Interpretation Abnormal (test code = 06112-3) [facility], [id number] 18:09:53 Test Item Value Reference Range Interpretation Comments pH, Arterial (test code 7.50 7.35-7.45 H = 2744-1) pCO2, Arterial (test 35 See_Comment [Autom ated message] code = 2019-8) The system [facility] generated this result transmit hernandez reference range : 35 - 45 mm Hg. The reference range was not used to interpret this result as normal/abnormal . pO2, Arterial (test 139 See_Comment H [Automa hernandez message] code = 2703-7) The system [facility] generated this result transmit hernandez reference range [...] 8310-5) Lab Interpretation Abnormal (test code = 53625-8) [facility] CenterCALCIUM, [id number] 18:09:53 Test Item Value Reference Range Interpretation Comments CALCIUM IONIZED (BEAKER) (test 1.07 mmol/L 1.12-1.27 L code = 698) PH, BLOOD (BEAKER) (test code = 7.50 1810) BLOOD GAS, [id number] 18:09:53 Test Item Value Reference Range Interpretation [...] (BEAKER) (test 37.0 code = 1818) Glucose-Stat [id number] 18:08:53 Test Item Value Reference Range Interpretation Comments Glucose (test code = 2345-7) 101 mg/dL 70-110 Lab Interpretation (test code = Normal 22805-9) [facility] CenterPotassium-Stat [id number] 18:08:53 Test Item Value Reference Range Interpretation Comments Potassium (test code = 2823-3) 4.2 meq/L 3.6-5.5 Lab Interpretation (test code = Normal 06736-6) [facility] CenterGlucose-Stat [id number] 18:08:53 Test Item Value Reference Range Interpretation Comments Glucose (test code = 2345-7) 101 mg/dL 70-110 Lab Interpretation (test code = Normal 85164-1) [facility] CenterPotassium-Stat [id number] 18:08:53 Test Item Value Reference Range Interpretation Comments Potassium (test code = 2823-3) 4.2 meq/L 3.6-5.5 Lab Interpretation (test code = Normal 80194-7) [facility] CenterGlucose-Stat [id number] 18:08:53 Test Item Value Reference Range Interpretation Comments Glucose (test code = 2345-7) 101 mg/dL 70-110 Lab Interpretation (test code = Normal 01664-3) [facility] CenterPotassium-Stat [id number] 18:08:53 Test Item Value Reference Range Interpretation Comments Potassium (test code = 2823-3) 4.2 meq/L 3.6-5.5 Lab Interpretation (test code = Normal 39570-3) [facility] CenterGlucose-Stat [id number] 18:08:53 Test Item Value Reference Range Interpretation Comments Glucose (test code = 2345-7) 101 mg/dL 70-110 Lab Interpretation (test code = Normal 26962-9) [facility] CenterPotassium-Stat [id number] 18:08:53 Test Item Value Reference Range Interpretation Comments Potassium (test code = 2823-3) 4.2 meq/L 3.6-5.5 Lab Interpretation (test code = Normal 51465-6) [facility] CenterGLUCOSE-STAT [id number] 18:08:53 Test Item Value Reference Range Interpretation Comments GLUCOSE RANDOM (BEAKER) (test code 101 mg/dL 70-110 = 652) POTASSIUM-STAT [id number] 18:08:53 Test Item Value Reference Range Interpretation Comments POTASSIUM (BEAKER) (test code = 4.2 meq/L 3.6-5.5 379) POCT-GLUCOSE [id number] 16:03:15 Test Item Value Reference Range Interpretation Comments POC-GLUCOSE METER 128 mg/dL 70-110 H : TESTED A T [facility] [address] (BEAKER) (test code = DONNA CHAR[place], 1538) [address]: Railroad Detective/Techni dakota ID = [id number] for Keely House VANCOMYCIN LEVEL, [id number] 14:06:37 Test Item Value Reference Range Interpretation Comments VANCOMYCIN TROUGH (BEAKER) (test 10.9 ug/mL 10.0-20.0 code = 522) Railroad Detective ID - DBSARS-COV2/RT-PCR ([facility])2021-10-02 12:40:57 Test Item Value Reference Range Interpretation Comments SARS-COV2/RT-PCR (test Negative Not Detected, Negative, code = 5027678) See external report for linked test SARS-COV-2 PERFORMING LAB [facility] (test code = 7991896) Negative result for this test determines that [...] of the Act.Fact Sheet for Healthcare Prov iders:https://www.[employer]/sites/default/files/product/documents/Fact_Sheet_HC _Ewdgzeiwy_Imuu_AYBS-OyL-3.pdfFact Sheet for Healthcare Patients:https://www.[employer]/sites/default/files/product/docume nts/Btal_Wgakl_Peamboxf_Rnlk_PYMP-FzY-9.pdfPerforming Laboratory:[facility], [place] [address]IQ, DRAINAGE, ABDOMINAL 2021-10-02 11:36:00Reason for exam:->necrotizing pancreatitis wiht fluid collections in abdomenReason for exam:->pls send cultures (aerobic, anaerobic) and amylase from fluid (all are ordered) [facility] : 2000 Sex: MFINAL REPORT PROCEDURE: Drainage catheter placement Procedural PersonnelAttending physician(s): Marvin Jordan physician(s): NoneResident physician(s): NoneAdvanced practice provider(s): None Pre-procedure diagnosis: Necrotizing pancreatitisPost-procedure diagnosis: SameIndication:Leukocytosis with fluid collectionAdditional clinical history: None Complications: No immediate complications. IMPRESSION: Percutaneous placement of a 16 Faroese drainage catheter into the anterior right upper [...] Daly MDReport Verified Date/Time: 10/02/2021 11:36:21 POCT-GLUCOSE [id number] 11:03:27 Test Item Value Reference Range Interpretation Comments POC-GLUCOSE METER 109 mg/dL 70-110 : TESTED A T [facility] 6720 (BEAKER) (test code = [facility] [employer] [facility], 1538) [address]: Railroad Detective/Techni dakota ID = [id number] for QUEEN HONEYCUTT BLOOD [id number] 10:09:04 Test Item Value Reference Interpretation Comments Range CULTURE (BEAKER) STAPHYLOCOCCUS A From Dago farfanic (test code = 1095) HOMINIS Bottle On [...] gram 1123) positive cocci in clusters POCT-GLUCOSE [id number] 07:31:14 Test Item Value Reference Range Interpretation Comments POC-GLUCOSE METER 76 mg/dL 70-110 : TESTED A T [facility] 6720 (BEAKER) (test code = [facility] [employer] [facility], 1538) [address]: Railroad Detective/Techni dakota ID = [id number] for QUEEN JACOBSEN [id number] 07:25:22 Test Item Value Reference Range Interpretation Comments PHOSPHORUS (BEAKER) (test code = 3.1 mg/dL 2.3-4.7 604) Railroad Detective ID - RMHEPATIC FUNCTION [id number] 07:25:22 Test Item Value Reference Range Interpretation [...] (test code = 7 U/L 6-55 347) Railroad Detective ID - RMBASIC METABOLIC [id number] 07:25:21 Test Item Value Reference Range Interpretation [...] S NOT APPLICABLE FOR DIALYSIS PATIEN TS. Railroad Detective ID - [id number] 07:25:21 Test Item Value Reference Range Interpretation Comments MAGNESIUM (BEAKER) (test code = 1.6 mg/dL 1.6-2.6 627) Railroad Detective ID - RMCBC (HEMOGRAM ONLY)2021-10-02 06:32:43 Test [...] 0-0 (BEAKER) (test code = 413) POCT-GLUCOSE [id number] 21:46:52 Test Item Value Reference Range Interpretation Comments POC-GLUCOSE METER 229 mg/dL 70-110 H : TESTED A T [facility] [address] ([facility]) (test code = [facility]IN[facility] [place] [facility], 153) [address]: Railroad Detective/Techni dakota ID = [id number] for HERLINDA VELASQUEZ POCT-GLUCOSE [id number] 16:53:40 Test Item Value Reference Range Interpretation Comments POC-GLUCOSE METER 231 mg/dL 70-110 H : Notified RN/MD: ([facility]) (test code = TESTED AT [facility] 67[address] 153) [facility], [address]: Railroad Detective/Techni dakota ID = [id number] for Filippo Feldman 2D Echo W/Doppler(CW/PW/Color)2021-10-01 14:03:19 Test Item Value Reference Range Interpretation Comments Ejection Fraction Est EF is 55-60% (test code = 2574) Radiology Study observation (narrative) (test code = 34046-0) PXN (test code = Alejandro Hudson MD PXN) - 10/01/2021 Transthoracic Echocardiography Report (TTE) Demographics Patient Name YAMILE, Date of Study 10/01/2021 VANGIE Gender Male Visit Number [id number] Race Unknown Room Number 931 Number Date of 2000 Referring Physician Rebecca Echols Age 21 year(s) Helmet Hat Sweatband Puncher Garret Calderon [facility] Hydrometeorologist Stefano Genao Interpreting Physician MAR Espinoza Procedure [...] Velocity: 2.26 m/s TR Gradient: 20.34 mmHg [facility] W/Doppler(CW/PW/Color)2021-10-01 14:03:19 Test Item Value Reference Range Interpretation Comments Ejection Fraction Est EF is 55-60% (test code = 2574) Radiology Study observation (narrative) (test code = 18492-1) PXN (test code = Alejandro Hudson MD PXN) - 10/01/2021 Transthoracic Echocardiography Report (TTE) Demographics Patient Name YAMILE, Date of Study 10/01/2021 GLEASON Gender Male Visit Number [id number] Race Unknown Room Number 931 Number Date of 2000 Referring Physician Rebecca Echols Age 21 year(s) Helmet Hat Sweatband Puncher Garret Calderon [facility] Hydrometeorologist Stefano Genao Interpreting Physician MAR Espinoza Procedure [...] Velocity: 2.26 m/s TR Gradient: 20.34 mmHg [facility] W/Doppler(CW/PW/Color)2021-10-01 14:03:19 Test Item Value Reference Range Interpretation Comments Ejection Fraction Est EF is 55-60% (test code = 2574) Radiology Study observation (narrative) (test code = 97090-6) PXN (test code = Alejandro Hudson MD PXN) - 10/01/2021 Transthoracic Echocardiography Report (TTE) Demographics Patient Name YAMILE, Date of Study 10/01/2021 GLEASON Gender Male Visit Number [id number] Race Unknown Room Number 931 Number Date of 2000 Referring Physician Rebecca Echols Age 21 year(s) Helmet Hat Sweatband Puncher Garret Calderon [facility] Hydrometeorologist Stefano Genao Interpreting Physician MAR Espinoza Procedure [...] 4.73 mmHg Deceleration Time: 278.4 msec MV Suap. Peak: Aortic Valve Peak Velocity: 1.4 m/s [...] Velocity: 2.26 m/s TR Gradient: 20.34 mmHg [facility] W/Doppler(CW/PW/Color)2021-10-01 14:03:19 Test Item Value Reference Range Interpretation Comments Ejection Fraction Est EF is 55-60% (test code = 2574) Radiology Study observation (narrative) (test code = 56932-1) PXN (test code = Alejandro Hudson MD PXN) - 10/01/2021 Transthoracic Echocardiography Report (TTE) Demographics Patient Name YAMILE, Date of Study 10/01/2021 GLEASON Gender Male Visit Number [id number] Race Unknown Room Number 931 Number Date of 2000 Referring Physician Rebecca Echols Age 21 year(s) Helmet Hat Sweatband Puncher Garret Calderon [facility] Hydrometeorologist Stefano Genao Interpreting Physician MAR Espinoza Procedure [...] Velocity: 2.26 m/s TR Gradient: 20.34 mmHg [facility] CenterPOCT-GLUCOSE [id number] 12:29:44 Test Item Value Reference Range Interpretation Comments POC-GLUCOSE METER 186 mg/dL 70-110 H : TESTED A T [facility] [address] (GENEVA) (test code = [place], 1538) [address]: Railroad Detective/Techni dakota ID = [id number] for DELMAR COOPER CT, ABDOMEN - PELVIS, PANCREAS [id number] 09:34:00Please have IV contrast if not already part of protocol.Unlisted Reason for Exam - Click Yes and Enter Reason Below->No [facility] : 2000 Sex: MFINAL [...] necrosis Superior Mesenteric Arter y: Patent Celiac Chester: Patent Celiac [place] and Hepatic Artery Anatomy: Conventional Gastroduodenal Artery: Patent Splenic Artery: Patent Main Portal Vein: Patent Portal Vein Davidson: Patent Splenic Vein: Patent Superior Mesenteric Vein: [...] Holloway MDReport Verified Date/Time: 10/01/2021 09:34:00 BLOOD [id number] 08:36:30 Test Item Value Reference Range Interpretation Comments CULTURE A From Aerobic An d (BEAKER) (test Anaerobic Bot tles Same code = 1095) organism has be en isolated from cultures(s) of the same body site and collection date . Repeat identifi cation and susceptibil ity testing perform ed only after consultat ion with the [facility] microbiology laboratory.Refe r to previous cultur e of* - Staphylococcus hominis GRAM STAIN From aerobic and RESULT (BEAKER) anaerobic (test code = bottles: gram 1123) positive cocci in clusters BODY FLUID CULTURE + GRAM [id number] 08:15:57 Test Item Value Reference Range Interpretation [...] gram negative (BEAKER) (test code = rods 197101) [id number] 05:43:54 Test Item Value Reference Range Interpretation Comments PHOSPHORUS (BEAKER) (test code = 2.8 mg/dL 2.3-4.7 604) Railroad Detective ID Cherelle SWANN WHEPATIC FUNCTION [id number] 05:43:54 Test Item Value Reference Range Interpretation [...] (test code = 7 U/L 6-55 347) Railroad Detective ID Cherelle SWANN WBASIC METABOLIC [id number] 05:43:53 Test Item Value Reference Range Interpretation [...] S NOT APPLICABLE FOR DIALYSIS PATIEN TS. Railroad Detective ID Cherelle SWANN [id number] 05:43:53 Test Item Value Reference Range Interpretation Comments MAGNESIUM (BEAKER) (test code = 1.4 mg/dL 1.6-2.6 L 627) Railroad Detective BEATRIZ SWANN WCBC (HEMOGRAM ONLY)2021-10-01 05:31:02 Test [...] (BEAKER) (test code = 413) Prepare Leuko-Red [id number] 23:54:00 Test Item Value Reference Range Interpretation Comments CROSSMATCH (test code = 2264) COMPATIBLE Unit ABO (test code = A Pos 6071433) UNIT NUMBER (test code = [id number] 934-0) Status (test code = 0508079) TX_TIMEINCHART Blood Bank Product (test code RED BLOOD CELLS = 2263) PRODUCT CODE (test code = Q6799E64 933-2) [facility] CenterPrep[facility] Leuko-Red [id number] 23:54:00 Test Item Value Reference Range Interpretation Comments CROSSMATCH (test code = 2264) COMPATIBLE Unit ABO (test code = A Pos 3512978) UNIT NUMBER (test code = [id number] 934-0) Status (test code = 6044655) TX_TIMEINCHART Blood Bank Product (test code RED BLOOD CELLS = 2263) PRODUCT CODE (test code = Y6324U52 933-2) [facility] CenterPrep[facility] Leuko-Red [id number] 23:54:00 Test Item Value Reference Range Interpretation Comments CROSSMATCH (test code = 2264) COMPATIBLE Unit ABO (test code = A Pos 4953329) UNIT NUMBER (test code = [id number] 934-0) Status (test code = 7046499) [facility] Blood Bank Product (test code RED BLOOD CELLS = 2263) PRODUCT CODE (test code = A6753U07 933-2) [facility] CenterPrear[facility]ale Leuko-Red [id number] 23:54:00 Test Item Value Reference Range Interpretation Comments CROSSMATCH (test code = 2264) COMPATIBLE Unit ABO (test code = A Pos 9323054) UNIT NUMBER (test code = [id number] 934-0) Status (test code = 2158208) [facility]INCT[facility]ON [facility]ENTERT Blood Bank Product (test code RED BLOOD CELLS = 2263) PRODUCT CODE (test code = J4441X52 933-2) [facility] CenterPOCT-GLUCOSE [id number] 22:44:20 Test Item Value Reference Range Interpretation Comments POC-GLUCOSE METER 162 mg/dL 70-110 H : TESTED A T [facility] 6720 (BEAKER) (test code = [facility] [employer] [facility], 153) [address]: Railroad Detective/Techni dakota ID = [id number] for MARCOS WESTFALL POCT-GLUCOSE [id number] 17:43:25 Test Item Value Reference Range Interpretation Comments POC-GLUCOSE METER 145 mg/dL 70-110 H : TESTED A T [facility] 6720 (BEAKER) (test code = [facility], 1538) [address]: Railroad Detective/Techni dakota ID = [id number] for DELMAR COOPER POCT-GLUCOSE [id number] 12:01:10 Test Item Value Reference Range Interpretation Comments POC-GLUCOSE METER 147 mg/dL 70-110 H : TESTED A T [facility] 6720 (BEAKER) (test code = DONNA [place], 1538) [address]: Railroad Detective/Techni dakota ID = [id number] for DELMAR COOPER POCT-GLUCOSE [id number] 07:49:49 Test Item Value Reference Range Interpretation Comments POC-GLUCOSE METER 131 mg/dL 70-110 H : TESTED A T [facility] 67[address] (BEAKER) (test code = DONNA [place], 1538) [address]: Railroad Detective/Techni dakota ID = [id number] for DELMAR COOPER COMPLEMENT COMPONENT [id number] 02:28:40 Test Item Value Reference Range Interpretation Comments C4 COMPLEMENT (BEAKER) (test code = 5 mg/dL 15-57 L 394) Railroad Detective ID - BSCOMPLEMENT COMPONENT [id number] 02:28:40 Test Item Value Reference Range Interpretation Comments C3 COMPLEMENT (BEAKER) (test code = 38 mg/dL 82-193 L 393) Railroad Detective ID - BSHEPATIC FUNCTION [id number] 02:27:21 Test Item Value Reference Range Interpretation [...] (test code = 11 U/L 6-55 347) Railroad Detective ID - [id number] 02:27:20 Test Item Value Reference Range Interpretation Comments MAGNESIUM (BEAKER) (test code = 1.6 mg/dL 1.6-2.6 627) Railroad Detective ID - [id number] 02:27:20 Test Item Value Reference Range Interpretation Comments PHOSPHORUS (BEAKER) (test code = 3.0 mg/dL 2.3-4.7 604) Railroad Detective ID - BSBASIC METABOLIC [id number] 02:27:19 Test Item Value Reference Range Interpretation [...] S NOT APPLICABLE FOR DIALYSIS PATIEN TS. Railroad Detective ID - BSVANCOMYCIN LEVEL, [id number] 02:21:15 Test Item Value Reference Range Interpretation Comments VANCOMYCIN TROUGH (BEAKER) (test 22.5 ug/mL 10.0-20.0 H code = 522) Railroad Detective ID - BSCBC (HEMOGRAM ONLY)2021-09-30 02:04:23 Test [...] H (BEAKER) (test code = 413) POCT-GLUCOSE [id number] 20:56:24 Test Item Value Reference Range Interpretation Comments POC-GLUCOSE METER 187 mg/dL 70-110 H : [facility] (BEAKER) (test code = [place], 1538) [address]: Railroad Detective/Techni dakota ID = [id number] for HERLINDA VELASQUEZ CREATININE, RANDOM [id number] 19:52:48 Test Item Value Reference Range Interpretation Comments CREATININE URINE (BEAKER) (test 38.8 mg/dL code = 375) Reference Range: No NormalsOperator ID - BSPROTEIN, RANDOM [id number] 19:52:48 Test Item Value Reference Range Interpretation Comments PROTEIN, URINE (BEAKER) (test code = 25 mg/dL 0-14 H 1569) Railroad Detective ID - BSURINALYSIS W/ [id number] 18:44:32 Test Item Value Reference Range Interpretation [...] = 1521) SOURCE(BEAKER) (test code = 2795) Railroad Detective ID - [auto]Railroad Detective ID - techAmylase, body [id number] 09:10:30 Test Item Value Reference Range Interpretation Comments Amylase, Fluid (test 18 U/L code = 1795-4) IDALIA (test code = Absence of reference IDALIA) range indicates that normals have not been defined.Assay performance has not been validated for this type of specimen. Railroad Detective ID - [id number] [facility] CenterAmylase, body [id number] 09:10:30 Test Item Value Reference Range Interpretation Comments Amylase, Fluid (test 18 U/L code = 1795-4) IDALIA (test code = Absence of reference IDALIA) range indicates that normals have not been defined.Assay performance has not been validated for this type of specimen. Railroad Detective ID - [id number] [facility] CenterAmylase, body [id number] 09:10:30 Test Item Value Reference Range Interpretation Comments Amylase, Fluid (test 18 U/L code = 1795-4) IDALIA (test code = Absence of reference IDALIA) range indicates that normals have not been defined.Assay performance has not been validated for this type of specimen. Railroad Detective ID - [id number] [facility] CenterAmylase, body [id number] 09:10:30 Test Item Value Reference Range Interpretation Comments Amylase, Fluid (test 18 U/L code = 1795-4) IDALIA (test code = Absence of reference IDALIA) range indicates that normals have not been defined.Assay performance has not been validated for this type of specimen. Railroad Detective ID - [id number] [facility] CenterAMYLASE, BODY [id number] 09:10:30 Test Item Value Reference Range Interpretation Comments AMYLASE FLUID (BEAKER) (test code = 18 U/L 350) Absence of reference range indicates that normals have not been defined.Assay performance has not been validated for this type of specimen.Railroad Detective ID - [id number] [id number] 08:52:13 Test Item Value Reference Range Interpretation Comments POC-GLUCOSE METER 103 mg/dL 70-110 : TESTED A T [facility] (BEAKER) (test code = DONNA CHARLES [place], 1538) [address]: Railroad Detective/Techni dakota ID = [id number] for DELMAR COOPER [id number] 05:58:12 Test Item Value Reference Range Interpretation Comments PHOSPHORUS (BEAKER) (test code = 3.7 mg/dL 2.3-4.7 604) Railroad Detective ID - BISI GHEPATIC FUNCTION [id number] 05:58:12 Test Item Value Reference Range Interpretation [...] (test code = 10 U/L 6-55 347) Railroad Detective ID - BISI GBASIC METABOLIC [id number] 05:58:11 Test Item Value Reference Range Interpretation [...] S NOT APPLICABLE FOR DIALYSIS PATIEN TS. Railroad Detective ID - BISI [id number] 05:58:11 Test Item Value Reference Range Interpretation Comments MAGNESIUM (BEAKER) (test code = 1.7 mg/dL 1.6-2.6 627) Railroad Detective ID - BISI GCBC (HEMOGRAM ONLY)2021-09-29 05:50:24 [...] H (BEAKER) (test code = 413) PROTHROMBIN TIME/[id number] 05:37:22 Test Item Value Reference Range Interpretation Comments PROTIME (BEAKER) 15.2 seconds 11.9-14.2 H (test code = 759) INR (GENEVA) (test 1.22 See_Comment [Automat ed message] code = 370) The system CHARMS PPEC generated this result transmitted ref erence range: <=5.90. The reference range was not used to int erpret this result as normal/abnormal . RECOMMENDED COUMADIN/WARFARIN INR THERAPY RANGESSTANDARD DOSE: 2.0 - 3.0 Includes: PROPHYLAXIS for venous thrombosis, systemic embolization; TREATMENT for venous thrombosis and/or pulmonary embolus.HIGH RISK: Target INR is 2.5-3.5 for patients with mechanical heart valves.POCT-GLUCOSE [id number] 20:50:31 Test Item Value Reference Range Interpretation Comments POC-GLUCOSE METER 159 mg/dL 70-110 H : Notified RN/MD: (GENEVA) (test code = TESTED AT [facility] 6720 1538) [facility], [address]: Railroad Detective/Techni dakota ID = [id number] for HEATH GRANDE RAD, CHEST, 1 VIEW, NON [id number] 19:15:00Reason for exam:->preop patient for OR tomorrowShould this be performed at the bedside?->Yes [facility] 2000 Sex: MFINALREPORT History: preop patient for OR tomorrow. Surgery unspecified. Comparison:09/27/2021 Findings: A single view of the chest [...] Verified Date/Time: 09/28/2021 19:15:11 BLOOD CULTURE IDENTIFICATION [id number] 18:24:37 Test Item Value Reference Interpretation Comments Range LISTERIA MONOCYTOGENES Not detected Not detected (test code = 1742148) STAPHYLOCOCCUS (test Detected Not detected A Coagula se negative code = 1424078) Staph specie s (CoNS)- methici llin resistantFirst- line therapy: Vancom ycin MecA DETECTED Possible contamination. The likelihood of pathogenicity i s increased if th e organism is observed in multiple blood cultures obtain ed from separate venipunctures. Reference Range : Not Detected STAPHYLOCOCCUS AUREUS Not detected Not detected (test code = 6735425) STREPTOCOCCUS (test code Not detected Not detected = 4976800) STREPTOCOCCUS AGALACTIAE Not detected Not detected (GROUP B) (test code = 0808307) STREPTOCOCCUS PNEUMONIAE Not detected Not detected (test code = 2163134) STREPTOCOCCUS PYOGENES Not detected Not detected (GROUP A) (test code = 8696225) ACINETOBACTER BAUMANNII Not detected Not detected (test code = 0506924) HAEMOPHILUS INFLUENZAE Not detected Not detected (test code = 5255170) NEISSERIA MENINGITIDIS Not detected Not detected (test code = 0727332) ENTEROBACTERIACEAE (test Not detected Not detected code = 0434482) ENTEROBACTER CLOACOE Not detected Not detected COMPLEX (test code = 5665034) KLEBSIELLA OXYTOCA (test Not detected Not detected code = 3944830) KLEBSIELLA PNEUMONIAE Not detected Not detected (test code = 1650) PROTEUS (test code = Not detected Not detected 4104082) SERRATIA MARCESCENS Not detected Not detected (test code = 9435957) STACEY ALBICANS (test Not detected Not detected code = 5086781) STACEY GLABRATA (test Not detected Not detected code = 0228623) STACEY KRUSEI (test Not detected Not detected code = 7906229) STACEY PARAPSILOSIS Not detected Not detected (test code = 3247418) STACEY TROPICALIS (test Not detected Not detected code = 8579645) ESCHERICHIA COLI (test Not detected Not detected code = 5442275) METHICILLIN-RESISTANCE Detected Not detected A Note: Antimicrobial GENE (test code = resistance can ) occur via multi ple mechanisms. A N ot Detected result for the FilmArray antimicrobial resistance gene assays does not indicate antimicrobial susceptibility. Subculturing is required for species identification and susceptibility testing of isolates. VANCOMYCIN-RESISTANCE GENE (test code = 8471701) CARBAPENEM-RESISTANCE GENE (test code = 4987758) ENTEROCOCCUS-BEAKER Not detected Not detected (test code = 8984967) PSEUDOMONAS Not detected Not detected AERUGINOSA-BEAKER (test code = 0990266) Other bacteria and resistance markers not targeted by this PCR panel cannot be excluded; therefore clinical correlation and follow up of serology, culture results, and other molecular studies is required. The results are not intended to be used as the sole means for clinical diagnosis or patient management decisions. This sample was tested at the [facility] using the Alaris Blood Culture ID Panel. It is FDA cleared and has been verified and approved by the [facility] for clinical use. This laboratory is CLIA-certified and College ofAmerican Pathologists (CAP)-accredited to perform high complexity testing.HEMOGLOBIN AND [id number] 17:52:48 Test Item Value Reference Range Interpretation Comments HEMOGLOBIN (BEAKER) (test code = 7.2 GM/DL 13.7-17.5 L 410) HEMATOCRIT (BEAKER) (test code = 24.6 % 40.1-51.0 L 411) Railroad Detective ID - [id number] 12:45:54 Test Item Value Reference Range Interpretation Comments Amylase (test code = 32 U/L 25-125 1798-8) IDALIA (test code = IDALIA) Railroad Detective ID - PIAYA L Lab Interpretation (test Normal code = 37385-6) [facility] 12:45[facility]54 Test Item Value Reference Range Interpretation Comments Amylase (test code = 32 U/L 25-125 1798-8) IDALIA (test code = IDALIA) Railroad Detective ID - PIAYA L Lab Interpretation (test Normal code = 77869-9) [facility] 12:45:54 Test Item Value Reference Range Interpretation Comments Amylase (test code = 32 U/L 25-125 1798-8) IDALIA (test code = IDALIA) Railroad Detective ID - PIAYA L Lab Interpretation (test Normal code = 51689-5) [facility] 12:45:54 Test Item Value Reference Range Interpretation Comments Amylase (test code = 32 U/L 25-125 1798-8) IDALIA (test code = IDALIA) Railroad Detective ID - PIAYA L Lab Interpretation (test Normal code = 22088-3) [facility] 12:45:54 Test Item Value Reference Range Interpretation Comments AMYLASE (BEAKER) (test code = 349) 32 U/L 25-125 Railroad Detective ID - MARIBEL LPOCT-GLUCOSE [id number] 12:21:36 Test Item Value Reference Range Interpretation Comments POC-GLUCOSE METER 89 mg/dL 70-110 : TESTED A T [facility] 6720 (BEAKER) (test code = [facility], 1538) [address]: Railroad Detective/Techni dakota ID = [id number] for Milena Wei POCT-GLUCOSE [id number] 07:58:39 Test Item Value Reference Range Interpretation Comments POC-GLUCOSE METER 101 mg/dL 70-110 : TESTED A T [facility] 6720 (BEAKER) (test code [facility], = 1538) [address]: Railroad Detective/Techni dakota ID = [id number] for Till Monica akinsque (CELLAVISION MANUAL DIFF)2021-09-28 06:59:01 Test Item Value [...] CONCENTRATION Adequate (CELLAVISION)(BEAKER) (test code = 3438) Railroad Detective ID - [id number] ID - Rebecca Elizondo comments: Slide comments: CBC W/PLT COUNT & AUTO [id number] 06:59:00 Test Item Value Reference Range Interpretation [...] 0-0 (BEAKER) (test code = 413) SARS-COV2/RT-PCR ([facility])2021-09-28 05:26:25 Test Item Value Reference Range Interpretation Comments SARS-COV2/RT-PCR Negative Negative The SARS-Co V-2 target (test code = nucleic acids a re not 3167395) detected in thi s specimen. Negative result [...] revoked sooner. Fact Sheet for Healthcare Providers: https://www.lingoking GmbHid.co m/Documents/Xpert%20Xpress%20SARS%20CoV-2/Fact%20Sheets/302-3662%74VURW-TIA-5%20 HEALTHCARE%20PROVIDERS%20FACT%20SHEET.pdf Fact Sheet for Healthcare Patients: https://www.eCircle.com/Documents/Xpert%20Xp ress%20SARS%20CoV-2/Fact%20Sheets/302-3801%89RNTG-BQL-2%20PATIENT%20FACT%20SHEET .pdfBASIC METABOLIC [id number] 05:15:58 Test Item Value Reference Range Interpretation [...] S NOT APPLICABLE FOR DIALYSIS PATIEN TS. Railroad Detective ID - [id number] 04:33:33 Test Item Value Reference Range Interpretation Comments PHOSPHORUS (BEAKER) (test code = 4.1 mg/dL 2.3-4.7 604) Railroad Detective ID - BSHEPATIC FUNCTION [id number] 04:33:33 Test Item Value Reference Range Interpretation [...] (test code = 11 U/L 6-55 347) Railroad Detective ID - [id number] 04:33:32 Test Item Value Reference Range Interpretation Comments MAGNESIUM (BEAKER) (test code = 1.5 mg/dL 1.6-2.6 L 627) Railroad Detective ID - BSLACTIC ACID, [id number] 04:27:30 Test Item Value Reference Range Interpretation Comments LACTATE BLOOD VENOUS (2) (BEAKER) 1.04 mmol/L 0.50-2.20 (test code = 2872) Railroad Detective ID - BSPROTHROMBIN TIME/[id number] 04:23:49 Test Item Value Reference Range Interpretation Comments PROTIME (BEAKER) 15.5 seconds 11.9-14.2 H (test code = 759) INR (BEAKER) (test 1.25 See_Comment [Automat ed message] code = 370) The system CHARMS PPEC generated this result transmitted ref erence range: <=5.90. The reference range was not used to int erpret this result as normal/abnormal . RECOMMENDED COUMADIN/WARFARIN INR THERAPY RANGESSTANDARD DOSE: 2.0 - 3.0 Includes: PROPHYLAXIS for venous thrombosis, systemic embolization; TREATMENT for venous thrombosis and/or pulmonary embolus.HIGH RISK: Target INR is 2.5-3.5 for patients with mechanical heart valves.CT, [id number] 00:01:00Unlisted Reason for Exam - Click Yes and Enter Reason Below->YesUnlisted Reason for Exam->necrotizing panc on OSH imagingIs this for enterography?->NoWill this procedure require oral contrast?->No [facility] 2000 Sex: MFINAL [...] CONCENTRATION Adequate (CELLAVISION)(BEAKER) (test code = 3438) Railroad Detective ID - Romelia Tamez comments: Slide comments:COMPREHENSIVE METABOLIC [id number] 22:28:04 Test Item Value Reference Range Interpretation [...] S NOT APPLICABLE FOR DIALYSIS PATIEN TS. Railroad Detective ID - [id number] 22:28:04 Test Item Value Reference Range Interpretation Comments LIPASE (BEAKER) (test code = 749) 24 U/L 8-78 Railroad Detective ID - BSLACTIC ACID, [id number] 22:22:02 Test Item Value Reference Range Interpretation Comments LACTATE BLOOD VENOUS 1.20 mmol/L 0.50-2.20 Specime n slightly (2) (BEAKER) (test hemolyzed code = 0074) Railroad Detective ID - BSPROTHROMBIN TIME/[id number] 22:18:27 Test Item Value Reference Range Interpretation Comments PROTIME (BEAKER) 15.2 seconds 11.9-14.2 H (test code = 759) INR (BEAKER) (test 1.22 See_Comment [Automat ed message] code = 370) The system CHARMS PPEC generated this result transmitted ref erence range: <=5.90. The reference range was not used to int erpret this result as normal/abnormal . RECOMMENDED COUMADIN/WARFARIN INR THERAPY RANGESSTANDARD DOSE: 2.0 - 3.0 Includes: PROPHYLAXIS for venous thrombosis, systemic embolization; TREATMENT for venous thrombosis and/or pulmonary embolus.HIGH RISK: Target INR is 2.5-3.5 for patients with mechanical heart valves.CBC W/PLT COUNT & AUTO [id number] 22:11:15 Test Item Value Reference Range Interpretation [...] = 413) RAD, CHEST, 1 VIEW, NON [id number] 21:03:00Reason for exam:->ABNORMAL IMAGING RESULTShould this be performed at the bedside?->Yes [facility] 2000 Sex: MFINAL [...] IMPRESSION:No acute cardiopulmonary process. Signed: Andrés Holloway MDReport Verified Date/Time: 09/27/2021 21:03:24 - CT ABDOMEN W W/O CONTRAST 2021-09-27 15:48:00 [facility] 2000 Sex: M FAX: Willard Vaughn Jr [phone] [place]: St: REG Name: VANGIE OVALLE [facility] : 2000 Age/S: 21/M [address] Unit: [id number] Loc: [place] [address] Phys: Willard Crouch Jr, MD Acct: [id number] Dis Date: Status: REG CLI PHONE #: [phone] Exam Date: 09/27/2021 5280 FAX #: [phone] Reason: PANCREATITIS EXAMS: CPT CODE: [id number] CT ABDOMEN W W/O CONTRAST 82772 EXAM: CT ABDOMEN WITH AND WITHOUT CONTRAST INDICATION: History of chronic pancreatitis with acute pain, fever. History oflupus LOCATION: B2 COMPARISON: None TECHNIQUE: CT of [...] 1 Signed Report (CONTINUED)FAX: Willard Vaughn Jr [phone] [place]: St: REG Name: VANGIE OVALLE [facility] : 2000 Age/S: 21/M [address] Unit: [id number] Loc: [place] [address] Phys: Willard Crouch Jr, MD Acct: [id number] Dis Date: Status: REG CLI PHONE #: [phone] Exam Date: 09/27/2021 1530 FAX #: [phone] Reason: PANCREATITIS EXAMS: CPT CODE: [id number] CT ABDOMEN W W/O CONTRAST 55594 (Continued) IMPRESSION: 1. Slight heterogeneous enhancement of [...] CODING PURPOSES ONLY RESULT CODE: CVR at 1073 Reported and signed by: Vandana Madison MD CC: Willard Crouch Jr Technologist: LAMBERTO ARTEAGA Trnscrd Dt/Tm: 09/27/2021 (3119) Adalberto.PXC Orig Print D/T: S: 09/27/2021 (1551 PAGE 2 Signed ReportBEDSIDE [id number] 15:20:00 Test Item Value Reference Range Interpretation Comments BEDSIDE CREATININE (test code = 0.7 MG/DL 0.5-1.0 N CREATBED) Fecal [id number] 22:49:02 Test Item Value Reference Range Interpretation Comments Fecal Leukocytes (test No fecal leukocytes No fecal leukocytes code = 52984-3) seen seen Lab Interpretation Normal (test code = 43820-8) [facility] [id number] 22:49:02 Test Item Value Reference Range Interpretation Comments Fecal Leukocytes (test No fecal leukocytes No fecal leukocytes code = 03550-8) seen seen Lab Interpretation Normal (test code = 23609-9) [facility] vowtbgevgq2775-62-15 22:49:02 Test Item Value Reference Range Interpretation Comments Fecal Leukocytes (test No fecal leukocytes No fecal leukocytes code = 23116-7) seen seen Lab Interpretation Normal (test code = 52823-6) [facility] [id number] 22:49:02 Test Item Value Reference Range Interpretation Comments Fecal Leukocytes (test No fecal leukocytes No fecal leukocytes code = 26256-1) seen seen Lab Interpretation Normal (test code = 74382-7) [facility] [id number] 22:49:02 Test Item Value Reference Range Interpretation Comments FECAL LEUKOCYTES No fecal leukocytes No fecal leukocytes (BEAKER) (test code = seen seen 992) POCT-GLUCOSE [id number] 16:36:44 Test Item Value Reference Range Interpretation Comments POC-GLUCOSE METER 204 mg/dL 70-110 H : TESTED A T [facility] 6720 (BEAKER) (test code = [facility], 1538) [address]: Railroad Detective/Techni dakota ID = [id number] for Co ok, Susanna POCT-GLUCOSE [id number] 11:38:42 Test Item Value Reference Range Interpretation Comments POC-GLUCOSE METER 122 mg/dL 70-110 H : TESTED A T [facility] 6720 (BEAKER) (test code = [facility], 1538) [address]: Railroad Detective/Techni dakota ID = [id number] for Co ok, Susanna BASIC METABOLIC [id number] 08:51:41 Test Item Value Reference Range Interpretation [...] S NOT APPLICABLE FOR DIALYSIS PATIEN TS. Railroad Detective ID - DBPOCT-GLUCOSE [id number] 07:42:10 Test Item Value Reference Range Interpretation Comments POC-GLUCOSE METER 100 mg/dL 70-110 : TESTED A T [facility] 6720 (BEAKER) (test code = [employer] [facility], 153) [address]: Railroad Detective/Techni dakota ID = [id number] for Co Susanna cesar [id number] 06:05:53 Test Item Value Reference Range Interpretation Comments MAGNESIUM (BEAKER) (test code = 1.5 mg/dL 1.6-2.6 L 627) Railroad Detective ID - DBPOCT-GLUCOSE [id number] 22:10:06 Test Item Value Reference Range Interpretation Comments POC-GLUCOSE METER 226 mg/dL 70-110 H : TESTED A T [facility] 6720 (BEAKER) (test code = [employer] [facility], 1538) [address]: Railroad Detective/Techni dakota ID = [id number] for Guanakito Banks (contract), Maribel i POCT-GLUCOSE [id number] 17:25:35 Test Item Value Reference Range Interpretation Comments POC-GLUCOSE METER 167 mg/dL 70-110 H : TESTED A T [facility] 6720 (BEAKER) (test code = [facility], 1538) [address]: Railroad Detective/Techni dakota ID = [id number] for Co Susanna cesar POCT-GLUCOSE [id number] 11:53:31 Test Item Value Reference Range Interpretation Comments POC-GLUCOSE METER 84 mg/dL 70-110 : TESTED A T [facility] 6720 (BEAKER) (test code = [facility], 1538) [address]: Railroad Detective/Techni dakota ID = [id number] for Susanna Light POCT-GLUCOSE [id number] 07:47:58 Test Item Value Reference Range Interpretation Comments POC-GLUCOSE METER 91 mg/dL 70-110 : TESTED A T [facility] 6720 (BEAKER) (test code = [facility], 1538) [address]: Railroad Detective/Techni dakota ID = [id number] for Susanna Light [id number] 05:26:53 Test Item Value Reference Range Interpretation Comments FERRITIN (BEAKER) (test code = 1277.07 ng/mL 5.00-275.00 H 361) Railroad Detective ID - ALVINA [id number] 05:16:29 Test Item Value Reference Range Interpretation Comments MAGNESIUM (BEAKER) 1.5 mg/dL 1.6-2.6 L Specimen slightly (test code = 627) hemolyzed Railroad Detective ID - BSCOMPREHENSIVE METABOLIC [id number] 05:16:29 Test Item Value Reference Range Interpretation [...] S NOT APPLICABLE FOR DIALYSIS PATIEN TS. Railroad Detective ID - BSCBC W/PLT COUNT & AUTO [id number] 05:09:25 Test Item Value Reference Range Interpretation [...] PERCENT (BEAKER) (test code = 2801) POCT-GLUCOSE [id number] 23:08:33 Test Item Value Reference Range Interpretation Comments POC-GLUCOSE METER 180 mg/dL 70-110 H : [facility] ([facility] (test code = [facility] [place], 1538) [address]: Railroad Detective/Techni dakota ID = [id number] for CAROLINA LENZ Giardia fbbezwi4298-27-07 19:26:40 Test Item Value Reference Range Interpretation Comments STATUS: FINAL (QUEST) (test code = 1429505) RESULT: Not Detected Reference Range :Not (QUEST) (test Detected code = 6611387) Source: (test STOOL code = 71622-2) Comment: See Below NOTE: Due to (test code = intermittent sh edding, ) one negativesam ple does not necess arily rule out the presenceof a pa rasitic infection. IDALIA (test Performing Lab *JESSENIA code = IDALIA) [facility], [address] [place] [phone] Angela Barcenas MD [facility] [id number] 19:26:40 Test Item Value Reference Range Interpretation Comments STATUS: FINAL (QUEST) (test code = ) RESULT: Not Detected Reference Range :Not (QUEST) (test Detected code = 20151121) Source: (test STOOL code = 69087-8) Comment: See Below NOTE: Due to (test code = intermittent sh edding, ) one negativesam ple does not necess arily rule out the presenceof a pa rasitic infection. IDALIA (test Performing Lab *JESSENIA code = IDALIA) [facility], [address] [place] [phone] Angela Barcenas MD [facility] inywxnz1176-23-08 19:26:40 Test Item Value Reference Range Interpretation Comments STATUS: FINAL (QUEST) (test code = ) RESULT: Not Detected Reference Range :Not (QUEST) (test Detected code = 20151121) Source: (test STOOL code = 13113-6) Comment: See Below NOTE: Due to (test code = intermittent edding, ) one negativesam ple does not necess arily rule out the presenceof a pa rasitic infection. IDALIA (test Performing Lab *JESSENIA code = IDALIA) [facility], [address] [place] [phone] Angela [facility] [id number] 19:26:40 Test Item Value Reference Range Interpretation Comments STATUS: FINAL (QUEST) (test code = ) RESULT: Not Detected Reference Range :Not (QUEST) (test Detected code = 20151121) Source: (test STOOL code = 50444-9) Comment: See Below NOTE: Due to (test code = intermittent edding, ) one negativesam ple does not necess arily rule out the presenceof a pa rasitic infection. IDALIA (test Performing Lab *JESSENIA code = IDALIA) [facility], [address] [place] [phone] Angela Barcenas MD [facility] [id number] 15:54:55 Test Item Value Reference Range Interpretation Comments POC-GLUCOSE METER 302 mg/dL 70-110 H : TESTED A T [facility] 6720 (BEAKER) (test code = [place] [facility], 1538) [address]: Railroad Detective/Techni dakota ID = [id number] for Kevin Smith POCT-GLUCOSE [id number] 11:59:06 Test Item Value Reference Range Interpretation Comments POC-GLUCOSE METER 118 mg/dL 70-110 H : TESTED A T [facility] 6720 (BEAKER) (test code = [facility] [place] [facility], 1538) 386[address]: Railroad Detective/Techni dakota ID = [id number] for Kevin Smith [facility] Par[facility]ite Spxnmjpevpp0891-59-27 10:29:02See scanned reportCHI [facility] and [facility] Dxqgqjvauiu8542-41-17 10:29:02See scanned report [facility] and Parasite Poijeagilyd0468-72-68 10:29:02See scanned reportCHI [facility] CenterO[facility] and Parasite [id number] 10:29:02See scanned reportInter-Community Medical CenterPOCT-GLUCOSE METER 2021-09-20 08:15:03 Test Item Value Reference Range Interpretation Comments POC-GLUCOSE METER 153 mg/dL 70-110 H : [facility] (BEAKER[facility] (test code = [place] [facility], 1538) [address]: Railroad Detective/Techni dakota ID = [id number] for Kevin Smith [id number] 05:39:21 Test Item Value Reference Range Interpretation Comments FERRITIN (BEAKER) (test code = 2065.19 ng/mL 5.00-275.00 H 361) Railroad Detective ID - ALVINA MOperator ID - ALVINA [id number] 04:33:07 Test Item Value Reference Range Interpretation Comments MAGNESIUM (BEAKER) (test code = 1.7 mg/dL 1.6-2.6 627) Railroad Detective ID - ALVINA MCOMPREHENSIVE METABOLIC [id number] 04:33:06 Test Item Value Reference Range Interpretation [...] S NOT APPLICABLE FOR DIALYSIS PATIEN TS. Railroad Detective ID - ALVINA MCBC W/PLT COUNT & AUTO [id number] 04:05:50 Test Item Value Reference Range Interpretation [...] PERCENT (BEAKER) (test code = 2801) POCT-GLUCOSE [id number] 22:26:51 Test Item Value Reference Range Interpretation Comments POC-GLUCOSE METER 263 mg/dL 70-110 H : TESTED A T [facility] 6720 (BEAKER) (test code = [facility] [place] [facility], 1538) [address]: Railroad Detective/Techni dakota ID = [id number] for Cherry Morrissey POCT-GLUCOSE [id number] 17:52:33 Test Item Value Reference Range Interpretation Comments POC-GLUCOSE METER 320 mg/dL 70-110 H : TESTED A T [facility] 6720 (BEAKER) (test code [facility], = 1538) 885[address]: Railroad Detective/Techni dakota ID = [id number] for SD GALLO [id number] 16:04:21 Test Item Value Reference Range Interpretation Comments MAGNESIUM (GENEVA) (test code = 1.6 mg/dL 1.6-2.6 627) Railroad Detective ID - BSPOCT-GLUCOSE [id number] 13:44:43 Test Item Value Reference Range Interpretation Comments POC-GLUCOSE METER 243 mg/dL 70-110 H : TESTED A T [facility] 6720 (BECAMILO) (test code [facility], = 1538) 52907: Railroad Detective/Techni dakota ID = [id number] for SD GALLO ANTI-DNA [id number] 12:19:23 Test Item Value Reference Range Interpretation Comments ANTI-DNA TITER (GENEVA) (test code = :80 1553) DOUBLE-STRANDED DNA (DSDNA) [id number] 12:19:05 Test Item Value Reference Range Interpretation Comments ANTI-DNA DS (GENEVA) (test code = Positive Negative 1055) SARS-COV2/RT-PCR ([facility])2021-09-19 10:54:11 Test Item Value Reference Range Interpretation Comments SARS-COV2/RT-PCR (test Negative Not Detected, Negative, code = 1566563) See external report for linked test SARS-COV-2 PERFORMING LAB [facility] (test code = 2701044) Negative result for this test determines that [...] of the Act.Fact Sheet for Healthcare Prov iders:https://www.[employer]/sites/default/files/product/documents/Fact_Sheet_HC _Owfgzbhiy_Xipu_WWBG-OnZ-5.pdfFact Sheet for Healthcare Patients:https://www.[employer]/sites/default/files/product/docume nts/Rcah_Nltot_Mlesvlay_Aybd_ERRH-JiP-8.pdfPerforming Laboratory:[facility] [facility].[place], [place] [address]HXKE-CNLGRXA METER 2021-09-19 08:21:15 Test Item Value Reference Range Interpretation Comments POC-GLUCOSE METER 228 mg/dL 70-110 H : TESTED A T [facility] 6720 (BEAKER) (test code [facility], = 1538) 53645: Railroad Detective/Techni dakota ID = [id number] for SD GALLO [id number] 08:08:54 Test Item Value Reference Range Interpretation Comments MAGNESIUM (BEAKER) (test code = 1.4 mg/dL 1.6-2.6 L 627) Railroad Detective ID - BRANDIN CCOMPREHENSIVE METABOLIC [id number] 08:08:53 Test Item Value Reference Range Interpretation [...] S NOT APPLICABLE FOR DIALYSIS PATIEN TS. Railroad Detective ID - BRANDIN [id number] 07:30:23 Test Item Value Reference Range Interpretation Comments FERRITIN (BEAKER) (test code = 2272.75 ng/mL 5.00-275.00 H 361) Railroad Detective ID - SHREE WOperator ID - SHREE WCBC W/PLT COUNT & AUTO [id number] 06:07:16 Test Item Value Reference Range Interpretation [...] PERCENT (BEAKER) (test code = 2801) POCT-GLUCOSE [id number] 21:42:25 Test Item Value Reference Range Interpretation Comments POC-GLUCOSE METER 218 mg/dL 70-110 H : TESTED A T [facility] 6720 (BEAKER) (test code = DONNA WHIT[place], 1538) 25600: Railroad Detective/Techni dakota ID = [id number] for ABE TEJADA POCT-GLUCOSE [id number] 17:08:14 Test Item Value Reference Range Interpretation Comments POC-GLUCOSE METER 148 mg/dL 70-110 H : TESTED A T [facility] 6720 (GENEVA) (test code [place], = 1538) 92522: Railroad Detective/Techni dakota ID = [id number] for SD GALLO MISCELLANEOUS LAB [id number] 14:26:25 Test Item Value Reference Range Interpretation Comments SCAN RESULT (test code = See scanned report [id number]) See scanned reportCMV PCR, [id number] 14:23:40 Test Item Value Reference Range Interpretation [...] and its performance characteristics determined by the [facility] Pathol ogy Department, Section of [...] [facility] (BEAKER) (test code [facility], = 1538) 66944: Railroad Detective/Techni dakota ID = [id number] for SD GALLO MISCELLANEOUS LAB [id number] 09:55:02 Test Item Value Reference Range Interpretation Comments SCAN RESULT (test code = See scanned report [id number]) See scanned reportPOCT-GLUCOSE [id number] 09:36:32 Test Item Value Reference Range Interpretation Comments POC-GLUCOSE METER 99 mg/dL 70-110 : TESTED A T [facility] 6720 (BEAKER) (test code = [place] [facility], 1538) 22189: Railroad Detective/Techni dakota ID = [id number] for SD GALLO COMPREHENSIVE METABOLIC [id number] 07:28:53 Test Item Value Reference Range Interpretation [...] S NOT APPLICABLE FOR DIALYSIS PATIEN TS. Railroad Detective ID - [id number] 07:28:52 Test Item Value Reference Range Interpretation Comments MAGNESIUM (BEAKER) 1.3 mg/dL 1.6-2.6 L Specimen slightly (test code = 627) hemolyzed Railroad Detective ID - DBCBC W/PLT COUNT & AUTO [id number] 07:26:37 Test Item Value Reference Range Interpretation [...] PERCENT (BEAKER) (test code = 2801) POCT-GLUCOSE [id number] 22:29:02 Test Item Value Reference Range Interpretation Comments POC-GLUCOSE METER 207 mg/dL 70-110 H : TESTED A T [facility] 6720 (BEAKER) (test code = [facility], 153) 15754: Railroad Detective/Techni dakota ID = [id number] for AR MAXIMODOV HINOJOSAIA POCT-GLUCOSE [id number] 17:18:02 Test Item Value Reference Range Interpretation Comments POC-GLUCOSE METER 228 mg/dL 70-110 H : TESTED A T [facility] 6720 (BEAKER) (test code = [facility], 153) 37562: Railroad Detective/Techni dakota ID = [id number] for FA ITH, CASEY POCT-GLUCOSE [id number] 12:29:44 Test Item Value Reference Range Interpretation Comments POC-GLUCOSE METER 174 mg/dL 70-110 H : TESTED A T [facility] 6720 (BEAKER) (test code = [facility], 153) 40814: Railroad Detective/Techni dakota ID = [id number] for FA ITH, CASEY POCT-GLUCOSE [id number] 12:15:50 Test Item Value Reference Range Interpretation Comments POC-GLUCOSE METER 111 mg/dL 70-110 H : TESTED A T [facility] 6720 (BEAKER) (test code = [place], 1538) 06296: Railroad Detective/Techni dakota ID = [id number] for MASON LINK GI Pathogen Profile by PCR -ID [id number] 08:09:12 Test Item Value Reference Range Interpretation Comments CAMPYLOBACTER (PCR) Not detected Not detected (test code = 03660-4) PLESIOMONAS SHIGELLOIDES Not detected Not detected (PCR) (test code = 60562-9) SALMONELLA (PCR) (test Not detected Not detected code = 94063-7) YERSINIA ENTEROCOLITICA Not detected Not detected (PCR) (test code = 77628-5) VIBRIO CHOLERAE (PCR) Not detected Not detected (test code = 07575-2) ENTEROAGGREGATIVE E. Not detected Not detected COLI (EAEC) BY PCR (test code = 22441-9) ENTEROPATHOGENIC E. COLI Not detected Not detected (EPEC) BY PCR (test code = 98662-7) ENTEROTOXIGENIC E. COLI Not detected Not detected (ETEC) LT/ST BY PCR (test code = 04176-3) SHIGA-LIKE Not detected Not detected TOXIN-PRODUCING E. COLI (STEC) STX1/STX2 (test code = 29896-0) E. COLI O157 (PCR) (test code = 04348-3) SHIGELLA/ENTEROINVASIVE Not detected Not detected E. COLI (EIEC) BY PCR (test code = 27339-7) CRYPTOSPORIDIUM (PCR) Not detected Not detected (test code = 19928-1) CYCLOSPORA CAYETANENSIS Not detected Not detected (PCR) (test code = 37087-4) ENTAMOEBA HISTOLYTICA Not detected Not detected (PCR) (test code = 18471-4) GIARDIA LAMBLIA (PCR) Not detected Not detected (test code = 47809-1) ADENOVIRUS F 40/41 (PCR) Not detected Not detected (test code = 51286-5) ASTROVIRUS (PCR) (test Not detected Not detected code = 95212-5) NOROVIRUS GI/GII (PCR) Not detected Not detected (test code = 44683-6) ROTAVIRUS A (PCR) (test Not detected Not detected code = 38689-7) SAPOVIRUS (I, II, IV, V) Not detected Not detected BY PCR (test code = 96918-2) VIBRIO Not detected Not detected (PARAHAEMOLYTICUS, VULNIFICUS) (test code = 81777-0) IDALIA (test code = IDALIA) Other viruses, parasites and bacteria not targeted by this PCR panel cannot be excluded; therefore clinical correlation and follow up of serology, culture results, and other molecular studies is required. The results are not intended to be used as the sole means for clinical diagnosis or patient management decisions. This sample was tested at the [facility] using the [employer]aris Gastrointestinal Panel. It is FDA cleared and has been verified and approved by the [facility] for clinical use. This laboratory is CLIA-certified and [employer] [place] (CAP)-accredited to perform high complexity testing. [facility] by PCR -ID [id number] 08:09:12 Test Item Value Reference Range Interpretation Comments CAMPYLOBACTER PCR (test Not detected Not detected code = 30697-2) PLESIOMONAS SHIGELLOIDES Not detected Not detected (PCR) (test code = 03718-0) SALMONELLA (PCR) (test Not detected Not detected code = 47248-4) YERSINIA ENTEROCOLITICA Not detected Not detected (PCR) (test code = 78075-1) VIBRIO CHOLERAE (PCR) Not detected Not detected (test code = 57321-5) ENTEROAGGREGATIVE E. Not detected Not detected COLI (EAEC) BY PCR (test code = 14841-8) ENTEROPATHOGENIC E. COLI Not detected Not detected (EPEC) BY PCR (test code = 39534-5) ENTEROTOXIGENIC E. COLI Not detected Not detected (ETEC) LT/ST BY PCR (test code = 85085-6) SHIGA-LIKE Not detected Not detected TOXIN-PRODUCING E. COLI (STEC) STX1/STX2 (test code = 71207-4) E. COLI O157 (PCR) (test code = 46273-0) SHIGELLA/ENTEROINVASIVE Not detected Not detected E. COLI (EIEC) BY PCR (test code = 65323-8) CRYPTOSPORIDIUM (PCR) Not detected Not detected (test code = 36537-1) CYCLOSPORA CAYETANENSIS Not detected Not detected (PCR) (test code = 92325-0) ENTAMOEBA HISTOLYTICA Not detected Not detected (PCR) (test code = 37226-2) GIARDIA LAMBLIA (PCR) Not detected Not detected (test code = 63432-3) ADENOVIRUS F 40/41 (PCR) Not detected Not detected (test code = 57819-9) ASTROVIRUS (PCR) (test Not detected Not detected code = 30317-4) NOROVIRUS GI/GII (PCR) Not detected Not detected (test code = 73356-6) ROTAVIRUS A (PCR) (test Not detected Not detected code = 12687-3) SAPOVIRUS (I, II, IV, V) Not detected Not detected BY PCR (test code = 59117-6) VIBRIO Not detected Not detected (PARAHAEMOLYTICUS, VULNIFICUS) (test code = 68902-4) IDALIA (test code = IDALIA) Other viruses, parasites and bacteria not targeted by this PCR panel cannot be excluded; therefore clinical correlation and follow up of serology, culture results, and other molecular studies is required. The results are not intended to be used as the sole means for clinical diagnosis or patient management decisions. This sample was tested at the [facility] using the [employer] Gastrointestinal Panel. It is FDA cleared and has been verified and approved by the [facility] for clinical use. This laboratory is CLIA-certified and [employer] [place] [employer] (CAP)-accredited to perform high complexity testing. [facility] by PCR -ID [id number] 08:09:12 Test Item Value Reference Range Interpretation Comments CAMPYLOBACTER PCR (test Not detected Not detected code = 82032-2) PLESIOMONAS SHIGELLOIDES Not detected Not detected (PCR) (test code = 52047-4) SALMONELLA (PCR) (test Not detected Not detected code = 59213-9) YERSINIA ENTEROCOLITICA Not detected Not detected (PCR) (test code = 37595-4) VIBRIO CHOLERAE (PCR) Not detected Not detected (test code = 31116-0) ENTEROAGGREGATIVE E. Not detected Not detected COLI (EAEC) BY PCR (test code = 27541-2) ENTEROPATHOGENIC E. COLI Not detected Not detected (EPEC) BY PCR (test code = 36168-0) ENTEROTOXIGENIC E. COLI Not detected Not detected (ETEC) LT/ST BY PCR (test code = 03050-7) SHIGA-LIKE Not detected Not detected TOXIN-PRODUCING E. COLI (STEC) STX1/STX2 (test code = 34652-2) E. COLI O157 (PCR) (test code = 96206-6) SHIGELLA/ENTEROINVASIVE Not detected Not detected E. COLI (EIEC) BY PCR (test code = 36304-7) CRYPTOSPORIDIUM (PCR) Not detected Not detected (test code = 70328-5) CYCLOSPORA CAYETANENSIS Not detected Not detected (PCR) (test code = 13614-3) ENTAMOEBA HISTOLYTICA Not detected Not detected (PCR) (test code = 05350-2) GIARDIA LAMBLIA (PCR) Not detected Not detected (test code = 23504-6) ADENOVIRUS F 40/41 (PCR) Not detected Not detected (test code = 63226-7) ASTROVIRUS (PCR) (test Not detected Not detected code = 38289-1) NOROVIRUS GI/GII (PCR) Not detected Not detected (test code = 97144-1) ROTAVIRUS A (PCR) (test Not detected Not detected code = 98768-5) SAPOVIRUS (I, II, IV, V) Not detected Not detected BY PCR (test code = 04016-7) VIBRIO Not detected Not detected (PARAHAEMOLYTICUS, VULNIFICUS) (test code = 95473-3) IDALIA (test code = IDALIA) Other viruses, parasites and bacteria not targeted by this PCR panel cannot be excluded; therefore clinical correlation and follow up of serology, culture results, and other molecular studies is required. The results are not intended to be used as the sole means for clinical diagnosis or patient management decisions. This sample was tested at the [facility] using the [employer] Gastrointestinal Panel. It is FDA cleared and has been verified and approved by the [facility] for clinical use. This laboratory is CLIA-certified and [employer] [place] (CAP)-accredited to perform high complexity testing. [facility] PATH[facility] PROFILE BY [id number] 08:09:12 Test Item Value Reference Range Interpretation [...] Not detected BY PCR (test code = 0265490) ENTEROPATHOGENIC E. COLI (EPEC) Not detected Not detected BY PCR (test code = 5740982) ENTEROTOXIGENIC E. COLI (ETEC) Not detected Not detected LT/ST BY PCR (test code = 1359967) SHIGA-LIKE TOXIN-PRODUCING E. Not detected Not detected COLI (STEC) STX1/STX2 (test code = 9607632) E. COLI O157 (PCR) (test code = 8712885) SHIGELLA/ENTEROINVASIVE E. COLI Not detected Not detected (EIEC) BY PCR (test code = 0663204) CRYPTOSPORIDIUM (PCR) (test code Not detected Not [...] Not detected Not detected (test code = 4796661) VIBRIO (PARAHAEMOLYTICUS, Not detected Not detected VULNIFICUS) (test code = 5352779) Other viruses, parasites and bacteria not targeted by this PCR panel cannot be excluded; therefore clinical correlation and follow up of serology, culture results, and other molecular studies is required. The results are not intended to be used as the sole means for clinical diagnosis or patient management decisions. This sample was tested at the [facility] using the Alaris Gastrointestinal Panel. It is FDA cleared and has been verified and approved by the [facility] for clinical use. This laboratory is CLIA-certified and College ofAmerican Pathologists (CAP)-accredited to perform high complexity testing.POCT-GLUCOSE [id number] 08:04:19 Test Item Value Reference Range Interpretation Comments POC-GLUCOSE METER 141 mg/dL 70-110 H : TESTED A T [facility] 6720 (BEAKER) (test code = [place], 1538) 57964: Railroad Detective/Techni dakota ID = [id number] for CASEY KERNS [id number] 07:09:55 Test Item Value Reference Range Interpretation Comments MAGNESIUM (BEAKER) (test code = 1.6 mg/dL 1.6-2.6 627) Railroad Detective ID - DBCOMPREHENSIVE METABOLIC [id number] 07:09:54 Test Item Value Reference Range Interpretation [...] S NOT APPLICABLE FOR DIALYSIS PATIEN TS. Railroad Detective ID - [id number] 06:53:54 Test Item Value Reference Range Interpretation Comments FERRITIN (BEAKER) (test code = 1616.89 ng/mL 5.00-275.00 H 361) Railroad Detective ID - SHREE WCBC W/PLT COUNT & AUTO [id number] 06:20:10 Test Item Value Reference Range Interpretation [...] PERCENT (BEAKER) (test code = 2801) POCT-GLUCOSE [id number] 22:18:47 Test Item Value Reference Range Interpretation Comments POC-GLUCOSE METER 255 mg/dL 70-110 H : TESTED A T [facility] 6720 (BEAKER) (test code = [facility], 1538) 29628: Railroad Detective/Techni dakota ID = [id number] for Cherry Morrissey POCT-GLUCOSE [id number] 17:41:27 Test Item Value Reference Range Interpretation Comments POC-GLUCOSE METER 160 mg/dL 70-110 H : TESTED A T [facility] 6720 (BEAKER) (test code = [facility], 153) 28295: Railroad Detective/Techni dakota ID = [id number] for MASON LINK POCT-GLUCOSE [id number] 11:47:30 Test Item Value Reference Range Interpretation Comments POC-GLUCOSE METER 126 mg/dL 70-110 H : TESTED A T [facility] 6720 (BEAKER) (test code = [facility], 153) 09326: Railroad Detective/Techni dakota ID = [id number] for MASON LINK [id number] 11:09:58 Test Item Value Reference Range Interpretation Comments FERRITIN (BEAKER) (test code = 1216.61 ng/mL 5.00-275.00 H 361) Railroad Detective ID - FATMATA WBLOOD [id number] 10:00:55 Test Item Value Reference Range Interpretation Comments CULTURE (BEAKER) (test No growth in 5 days code = 1095) The specimen volume collected for this blood culture was below the optimum (10 mL per bottle or 20 mL total). Use of lower volumes may adversely affect recovery and/or detection times of some organisms.CBC W/PLT COUNT & AUTO [id number] 07:57:54 Test Item Value Reference Range Interpretation [...] (BEAKER) (test code = 2801) COMPREHENSIVE METABOLIC [id number] 07:37:26 Test Item Value Reference Range Interpretation [...] S NOT APPLICABLE FOR DIALYSIS PATIEN TS. Railroad Detective ID - [id number] 07:37:26 Test Item Value Reference Range Interpretation Comments MAGNESIUM (BEAKER) (test code = 1.5 mg/dL 1.6-2.6 L 627) Railroad Detective ID - DBClostridium difficile GDH [id number] 23:10:55 Test Item Value Reference Range Interpretation Comments C. Difficle Toxin Negative Negative (test code = 6259782324) C. Difficile GDH Positive Negative A C. difficil e Antigen (test code = present but toxin 1588178291) not detected. Indicates colonization wi th non-toxigenic [...] of kit performance was done by the [facility] prior to clinical use. Lab Interpretation Abnormal (test code = 52973-9) [facility] CenterClostridium difficile GDH [id number] 23:10:55 Test Item Value Reference Range Interpretation Comments C. Difficle Toxin Negative Negative (test code = ) C. Difficile GDH Positive Negative A C. difficil e Antigen (test code = present but toxin 7783876216) not detected. Indicates colonization wi th non-toxigenic [...] of kit performance was done by the [facility] prior to clinical use. Lab Interpretation Abnormal (test code = 90641-9) [facility] CenterClostridium difficile GDH [id number] 23:10:55 Test Item Value Reference Range Interpretation Comments C. Difficle Toxin Negative Negative (test code = ) C. Difficile GDH Positive Negative A C. difficil e Antigen (test code = present but toxin 1437885556) not detected. Indicates colonization wi th non-toxigenic [...] of kit performance was done by the [facility] prior to clinical use. Lab Interpretation Abnormal (test code = 47593-8) [facility] Center[facility]. DIFFICILE GDH [id number] 23:10:55 Test Item Value Reference Range Interpretation Comments CDT TOXIN (test code Negative Negative = 6648243578) CDT GDH ANTIGEN Positive Negative A C. difficile present but (test code = toxin not detec hernandez. 8452300817) Indicates colon ization with non-toxige luis antonio [...] of kit performance was done by the [facility] prior to clinical use.POCT-GLUCOSE [id number] 21:40:07 Test Item Value Reference Range Interpretation Comments POC-GLUCOSE METER 144 mg/dL 70-110 H : TESTED A T [facility] (BuzzStarter) (test code = [facility] [employer] [facility], 1538) 00493: Railroad Detective/Techni dakota ID = [id number] for ABE TEJADA POCT-GLUCOSE [id number] 19:13:38 Test Item Value Reference Range Interpretation Comments POC-GLUCOSE METER 71 mg/dL 70-110 : TESTED A T [facility] (BuzzStarter) (test code = [employer] [facility], 153) 33013: Railroad Detective/Techni dakota ID = [id number] for MASON URIOSTEGUI POCT-GLUCOSE [id number] 17:28:46 Test Item Value Reference Range Interpretation Comments POC-GLUCOSE METER 156 mg/dL 70-110 H : TESTED A T [facility] (BEAKER) (test code = [place], 1538) 36986: Railroad Detective/Techni dakota ID = [id number] for MASON LINK [id number] 17:03:09 Test Item Value Reference Range Interpretation Comments MAGNESIUM (BEAKER) (test code = 1.3 mg/dL 1.6-2.6 L 627) Railroad Detective ID - ADMINBASIC METABOLIC [id number] 17:03:08 Test Item Value Reference Range Interpretation [...] S NOT APPLICABLE FOR DIALYSIS PATIEN TS. Railroad Detective ID - ADMINVenous doppler leg, [id number] 16:49:56Ejection FractionSLEH ECHO HEARTLAB MKCKESSON [place] ValleyVenous doppler leg, [id number] 16:49:56Ejection FractionSLEH ECHO HEARTLAB MKCKESSON [place] ValleyVenous doppler leg, [id number] 16:49:56Ejection FractionSLEH ECHO HEARTLAB MKCKESSON [place] ValleyVenous doppler leg, [id number] 16:49:56Ejection FractionSLEH ECHO HEARTLAB MKCKESSON [place] ValleyBLOOD [id number] 12:01:39 Test Item Value Reference Range Interpretation Comments CULTURE (BEAKER) (test No growth in 5 days code = 1095) POCT-GLUCOSE [id number] 11:07:13 Test Item Value Reference Range Interpretation Comments POC-GLUCOSE METER 173 mg/dL 70-110 H : TESTED A T [facility] (BEAKER) (test code = [place], 1538) 628[address]: Railroad Detective/Techni dakota ID = [id number] for MASON LINK [id number] 08:10:09 Test Item Value Reference Range Interpretation Comments MAGNESIUM (BEAKER) (test code = 1.3 mg/dL 1.6-2.6 L 627) Railroad Detective ID - DBCOMPREHENSIVE METABOLIC [id number] 08:10:08 Test Item Value Reference Range Interpretation [...] S NOT APPLICABLE FOR DIALYSIS PATIEN TS. Railroad Detective ID - DBCBC W/PLT COUNT & AUTO [id number] 07:40:05 Test Item Value Reference Range Interpretation [...] H PERCENT (BEAKER) (test code = 2801) [id number] 06:53:41 Test Item Value Reference Range Interpretation Comments FERRITIN (BEAKER) (test code = 1099.45 ng/mL 5.00-275.00 H 361) Railroad Detective ID - SHREE WPOCT-GLUCOSE [id number] 21:23:35 Test Item Value Reference Range Interpretation Comments POC-GLUCOSE METER 196 mg/dL 70-110 H : TESTED A T [facility] 6720 (BEAKER) (test code = [facility], 1538) 54850: Railroad Detective/Techni dakota ID = [id number] for Cherry Morrissey POCT-GLUCOSE [id number] 18:12:17 Test Item Value Reference Range Interpretation Comments POC-GLUCOSE METER 240 mg/dL 70-110 H : TESTED A T [facility] 6720 (BEAKER) (test code [facility], = 1538) 03437: Railroad Detective/Techni dakota ID = [id number] for SD GALLO [id number] 16:01:42 Test Item Value Reference Range Interpretation Comments FERRITIN (BEAKER) (test code = 1526.03 ng/mL 5.00-275.00 H 361) Railroad Detective ID - DBHEPATIC FUNCTION [id number] 14:17:51 Test Item Value Reference Range Interpretation [...] (test code = 45 U/L 6-55 347) Railroad Detective ID - BSPOCT-GLUCOSE [id number] 12:52:27 Test Item Value Reference Range Interpretation Comments POC-GLUCOSE METER 165 mg/dL 70-110 H : TESTED A T [facility] 6720 (BEAKER) (test code [facility], = 1538) 44452: Railroad Detective/Techni dakota ID = [id number] for SD GALLO BASIC METABOLIC [id number] 12:24:38 Test Item Value Reference Range Interpretation [...] S NOT APPLICABLE FOR DIALYSIS PATIEN TS. Railroad Detective ID - BSOperator ID - [id number] 12:24:33 Test Item Value Reference Range Interpretation Comments MAGNESIUM (BEAKER) (test code = 1.3 mg/dL 1.6-2.6 L 627) Railroad Detective ID - BSOperator ID - BSPOCT-GLUCOSE [id number] 08:43:31 Test Item Value Reference Range Interpretation Comments POC-GLUCOSE METER 83 mg/dL 70-110 : TESTED A T [facility] 6720 (BEAKER) (test code = [facility], 1538) 36459: Railroad Detective/Techni dakota ID = [id number] for SD GALLO POCT-GLUCOSE [id number] 22:05:41 Test Item Value Reference Range Interpretation Comments POC-GLUCOSE METER 190 mg/dL 70-110 H : TESTED A T [facility]20 ([facility]) (test code = [facility], 1538) 30261: Railroad Detective/Techni dakota ID = [id number] for SA RICH, ABE POCT-GLUCOSE [id number] 16:33:29 Test Item Value Reference Range Interpretation Comments POC-GLUCOSE METER 221 mg/dL 70-110 H : TESTED A T [facility] 6720 ([facility]) (test code = [facility], 1538) 52356: Railroad Detective/Techni dakota ID = [id number] for [place], Susanna POCT-GLUCOSE [id number] 12:08:57 Test Item Value Reference Range Interpretation Comments POC-GLUCOSE METER 127 mg/dL 70-110 H : TESTED A T [facility] 6720 ([facility]) (test code = [facility], 1538) 72944: Railroad Detective/Techni dakota ID = [id number] for [place], Susanna POCT-GLUCOSE [id number] 09:48:13 Test Item Value Reference Range Interpretation Comments POC-GLUCOSE METER 99 mg/dL 70-110 : TESTED A T [facility] 6720 ([facility] [facility] (test code = [facility], [facility]8) [address]: Railroad Detective/Techni dakota ID = [id number] for SUMEET EMILE BETTYCHIQUITA HEMOGLOBIN [id number] 09:05:11 Test Item Value Reference Range Interpretation Comments HEMOGLOBIN A1C 6.1 % See_Comment H [Automated m essage] ELECTROPHORESIS ([facility]) The system which (test code = 3811) generated this result transmitted ref erence range: <=5.6%. The reference range was not used to int erpret this result as normal/abnormal . "The A1c is measured using a NGSP-certified method. HbA1c value equal to or greater than 6.5% as thediagnosis cutoff for diabetes. An HbA1c value of 5.7- 6.4% indicates increased risk for diabetes (prediabetes)."Railroad Detective ID - ADM COMPREHENSIVE METABOLIC [id number] 06:09:47 Test Item Value Reference Range Interpretation [...] S NOT APPLICABLE FOR DIALYSIS PATIEN TS. Railroad Detective ID - [id number] 05:58:32 Test Item Value Reference Range Interpretation Comments MAGNESIUM (BEAKER) (test code = 1.3 mg/dL 1.6-2.6 L 627) Railroad Detective ID - [id number] 05:58:32 Test Item Value Reference Range Interpretation Comments PHOSPHORUS (BEAKER) (test code = 2.8 mg/dL 2.3-4.7 604) Railroad Detective ID - BSCBC W/PLT COUNT & AUTO [id number] 05:24:08 Test Item Value Reference Range Interpretation [...] PERCENT (BEAKER) (test code = 2801) POCT-GLUCOSE [id number] 21:20:25 Test Item Value Reference Range Interpretation Comments POC-GLUCOSE METER 186 mg/dL 70-110 H : TESTED A T [facility] [address]20 (BEAKER) (test code = [place], 1538) [address]: Railroad Detective/Techni dakota ID = [id number] for JUAN JOSÉ GIRON [id number] 18:54:47 Test Item Value Reference Range Interpretation Comments FERRITIN (BEAKER) (test code = 1911.44 ng/mL 5.00-275.00 H 361) Railroad Detective ID - BSCOMPREHENSIVE METABOLIC [id number] 18:12:55 Test Item Value Reference Range Interpretation [...] S NOT APPLICABLE FOR DIALYSIS PATIEN TS. Railroad Detective ID - [id number] 18:12:55 Test Item Value Reference Range Interpretation Comments MAGNESIUM (BEAKER) (test code = 1.4 mg/dL 1.6-2.6 L 627) Railroad Detective ID - [id number] 18:12:55 Test Item Value Reference Range Interpretation Comments PHOSPHORUS (BEAKER) (test code = 3.0 mg/dL 2.3-4.7 604) Railroad Detective ID - BSCOMPLEMENT COMPONENT [id number] 18:09:15 Test Item Value Reference Range Interpretation Comments C4 COMPLEMENT (BEAKER) (test code = 4 mg/dL 15-57 L 394) Railroad Detective ID - BSCOMPLEMENT COMPONENT [id number] 18:09:15 Test Item Value Reference Range Interpretation Comments C3 COMPLEMENT (BEAKER) (test code = 31 mg/dL 82-193 L 393) Railroad Detective ID - BSCBC W/PLT COUNT & AUTO [id number] 17:46:55 Test Item Value Reference Range Interpretation [...] PERCENT (BEAKER) (test code = 2801) POCT-GLUCOSE [id number] 17:32:52 Test Item Value Reference Range Interpretation Comments POC-GLUCOSE METER 216 mg/dL 70-110 H : TESTED A T [facility] 67[address] (BEAKER) (test code = [place], 1538) [address]: Railroad Detective/Techni dakota ID = [id number] for Je ssie, Kevin RAD, SHOULDER, COMPLETE (MIN 2 VIEWS), [id number] 14:45:00Reason for exam:- >chcf steroid use, eval [facility] 2000 Sex: MFINAL REPORT CLINICAL HISTORY: supplier diversity director steroid use, 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 There is no fracture or dislocation. Signed: Darcie Williamson Verified Date/Time: 09/12/2021 14:45:48 Reading Location: [facility] Reading Room RAD, SHOULDER, COMPLETE (MIN 2 VIEWS), [id number] 14:45:00Reason for exam:->chcf steroid use, [facility] : 2000 Sex: MFINAL REPORT CLINICAL HISTORY: supplier diversity director steroid use, 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 There is no fracture or dislocation. Signed: Darcie Williamson Verified Date/Time: 09/12/2021 14:45:48 Reading Location: [facility] Radiology Reading Room RAD, HIPS, 2 VIEWS, [id number] 14:29:00Reason for exam:->supplier diversity director steroid use, eval AVN [facility] 2000 Sex: MFINAL REPORT CLINICAL HISTORY: supplier diversity director steroid use, eval AVN TECHNIQUE: 2 views of the bilateral hips COMPARISON: None IMPRESSION: There is bilateral hip joint space narrowing. Subtle sclerosis and flattening of the left femoral head is suspected, possibly representing avascular necrosis given the clinical history. The right femoral head contour appears preserved. Signed: Darcie Williamson MDReport Verified Date/Time: 09/12/2021 14:29:16 Reading Location: [facility]iology Reading Room POCT-GLUCOSE [id number] 11:50:18 Test Item Value Reference Range Interpretation Comments POC-GLUCOSE METER 129 mg/dL 70-110 H : TESTED A T [facility] [address] ([place]) (test code = [place], 1538) [address]: Railroad Detective/Techni dakota ID = [id number] for Kevin Smith RAD, HAND, 3 VIEWS, [id number] 11:47:00Reason for exam:->rheumatoid arthritisDOM[facility]ICAN [facility] : 2000 Sex: MFINAL [...] MDReport Verified Date/Time: 09/12/2021 11:47:37 Reading Location: [facility] Radiology Reading Room Electronically signed by: DARCIE WILLIAMSON M.D. on 022 11:47 AMRAD, HAND, 3 VIEWS, [id number] 11:47:00Reason for exam:- >rheumatoid arthritis [facility] 2000 Sex: MFINAL [...] MDReport Verified Date/Time: 09/12/2021 11:47:37 Reading Location: [facility] Radiology Reading Room Electronically signed by: DARCIE WILLIAMSON M.D. on 022 11:47 AMPOCT-GLUCOSE [id number] 10:21:03 Test Item Value Reference Range Interpretation Comments POC-GLUCOSE METER 88 mg/dL 70-110 : TESTED A T [facility] 6720 (BEAKER) (test code = [facility], 1538) 09[address]: Railroad Detective/Techni dakota ID = [id number] for Destiny ie, Kevin PROTEIN, RANDOM [id number] 06:25:49 Test Item Value Reference Range Interpretation Comments PROTEIN, URINE (BEAKER) (test code 177 mg/dL 0-14 H = 1569) Railroad Detective ID - DBCREATININE, RANDOM [id number] 06:25:48 Test Item Value Reference Range Interpretation Comments CREATININE URINE (BEAKER) (test 106.5 mg/dL code = 375) Reference Range: No NormalsOperator ID - DBPOCT-GLUCOSE [id number] 22:19:10 Test Item Value Reference Range Interpretation Comments POC-GLUCOSE METER 219 mg/dL 70-110 H : TESTED A T [facility] 6720 (BEAKER) (test code = [facility], 1538) 69270: Railroad Detective/Techni dakota ID = [id number] for Mayte xiomaraCherry escoto POCT-GLUCOSE [id number] 20:21:14 Test Item Value Reference Range Interpretation Comments POC-GLUCOSE METER 257 mg/dL 70-110 H : TESTED A T [facility] 6720 (BEAKER) (test code = [facility], 1538) [address]: Railroad Detective/Techni dakota ID = [id number] for Vidal estrella, Deborah CT, [id number] 16:58:00Unlisted Reason for Exam - Click Yes and Enter Reason Below->Noeval prior pancreatitis for further necrosis or abscess, worsening leukocytosis and tachycardiaIs this for enterography?->NoWill this procedure require oral contrast?->No [facility] 2000 Sex: MFINAL [...] as above including severe hepatic steatosis Signed: Felicity Novak Verified Date/Time: 09/11/2021 16:58:30 -GLUCOSE [id number] 11:46:33 Test Item Value Reference Range Interpretation Comments POC-GLUCOSE METER 277 mg/dL 70-110 H : TESTED A T [facility] [address] (BEAKER) (test code = [place], 1538) [address]: Railroad Detective/Techni dakota ID = [id number] for JO MILLER COMPREHENSIVE METABOLIC [id number] 10:25:23 Test Item Value Reference Range Interpretation [...] S NOT APPLICABLE FOR DIALYSIS PATIEN TS. Railroad Detective ID - [id number] 10:13:10 Test Item Value Reference Range Interpretation Comments MAGNESIUM (BEAKER) (test code = 1.9 mg/dL 1.6-2.6 627) Railroad Detective ID - [id number] 10:13:10 Test Item Value Reference Range Interpretation Comments PHOSPHORUS (BEAKER) (test code = 2.5 mg/dL 2.3-4.7 604) Railroad Detective ID - DBCBC W/PLT COUNT & AUTO [id number] 10:02:45 Test Item Value Reference Range Interpretation [...] PERCENT (BEAKER) (test code = 2801) POCT-GLUCOSE [id number] 07:31:40 Test Item Value Reference Range Interpretation Comments POC-GLUCOSE METER 310 mg/dL 70-110 H : TESTED A T [facility] 6720 (BEAKER) (test code = [facility], 1538) 24599: Railroad Detective/Techni dakota ID = [id number] for JO MILLER BLOOD [id number] 03:00:54 Test Item Value Reference Range Interpretation Comments CULTURE (BEAKER) (test No growth in 5 days code = 1095) BLOOD [id number] 03:00:53 Test Item Value Reference Range Interpretation Comments CULTURE (BEAKER) (test No growth in 5 days code = 1095) POCT-GLUCOSE [id number] 21:11:52 Test Item Value Reference Range Interpretation Comments POC-GLUCOSE METER 286 mg/dL 70-110 H : TESTED A T [facility] 6720 (BEAKER) (test code [facility], = 1538) 85064: Railroad Detective/Techni dakota ID = [id number] for LUCERO ANTONIO, BERNY [id number] 12:52:50 Test Item Value Reference Range Interpretation Comments PROCALCITONIN (BEAKER) (test code 5.84 ng/mL <0.05 H = 3036) SEPSIS RISK (ng/mL)Low: 0.05-0.50Intermediate: 0.51-2.00High: >=2.01APTT 2021-09-10 12:05:26 Test Item Value Reference Range Interpretation Comments PARTIAL THROMBOPLASTIN TIME 27.5 seconds 22.5-36.0 ([place]) (test code = 760) PROTHROMBIN TIME/[id number] 12:04:41 Test Item Value Reference Range Interpretation Comments PROTIME ([place]) 16.4 seconds 11.9-14.2 H (test code = 759) INR ([place]) (test 1.34 See_Comment [Automat ed message] code = 370) The system CHARMS PPEC generated this result transmitted ref erence range: <=5.90. The reference range was not used to int erpret this result as normal/abnormal . RECOMMENDED COUMADIN/WARFARIN INR THERAPY RANGESSTANDARD DOSE: 2.0 - 3.0 Includes: PROPHYLAXIS for venous thrombosis, systemic embolization; TREATMENT for venous thrombosis and/or pulmonary embolus.HIGH RISK: Target INR is 2.5-3.5 for patients with mechanical heart valves.LACTIC ACID, [id number] 11:42:21 Test Item Value Reference Range Interpretation Comments LACTATE BLOOD VENOUS 1.13 mmol/L 0.50-2.20 Specime n slightly (2) ([place]) (test hemolyzed code = 2872) Railroad Detective ID - DBRAD, CHEST, 1 VIEW, NON [id number] 09:41:00Reason for exam:- >eval for pnaShould this be performed at the bedside?->Yes [facility] 2000 Sex: [...] MDReport Verified Date/Time: 09/10/2021 09:41:13 Reading Location: [address] Consult Reading Room (CELLAVISION MANUAL DIFF)2021-09-10 [...] CONCENTRATION Adequate (CELLAVISION)(BEAKER) (test code = 3438) Railroad Detective ID - [id number] ID - Rebecca Mikhail comments: Slide comments: CBC W/PLT COUNT & AUTO [id number] 07:30:14 Test Item Value Reference Range Interpretation [...] (BEAKER) (test code = 413) COMPREHENSIVE METABOLIC [id number] 05:40:15 Test Item Value Reference Range Interpretation [...] S NOT APPLICABLE FOR DIALYSIS PATIEN TS. Railroad Detective ID - MARIBEL [id number] 05:38:41 Test Item Value Reference Range Interpretation Comments MAGNESIUM (BEAKER) (test code = 1.5 mg/dL 1.6-2.6 L 627) Railroad Detective ID - MARIBEL [id number] 05:38:41 Test Item Value Reference Range Interpretation Comments PHOSPHORUS (BEAKER) (test code = 1.7 mg/dL 2.3-4.7 L 604) Railroad Detective ID - MARIBEL LPOCT-GLUCOSE [id number] 21:08:40 Test Item Value Reference Range Interpretation Comments POC-GLUCOSE METER 113 mg/dL 70-110 H : TESTED A T [facility] [address] (BEAKER) (test code = [place], 1538) [address]: Railroad Detective/Techni dakota ID = [id number] for SOMMER LYNN POCT-GLUCOSE [id number] 16:29:13 Test Item Value Reference Range Interpretation Comments POC-GLUCOSE METER 123 mg/dL 70-110 H : TESTED Daphne Miller [facility] 67[address] (BEAKER) (test code = [place], 1538) [address]16[address]: Railroad Detective/Techni dakota ID = [id number] for JO MILLER COMPREHENSIVE METABOLIC [id number] 15:30:31 Test Item Value Reference Range Interpretation [...] S NOT APPLICABLE FOR DIALYSIS PATIEN TS. Railroad Detective ID - ALVINA M2D Echo W/O Doppler(No Doppler)2021-09-09 14:32:05 Test Item Value Reference Range Interpretation Comments Ejection Fraction Est EF is 55-60% (test code = 2574) Radiology Study observation (narrative) (test code = 78690-5) PXN (test code = Sarah Travis PXN) - 09/09/2021 Transthoracic Echocardiography Report (TTE) Demographics Patient Name YAMILE, Date of Study 09/09/2021 VANGIE Gender Male Visit Number [id number] Race Unknown Room Number C622 Number Date of 2000 Referring Babita Cano Physician Age 21 year(s) Helmet Hat Sweatband Puncher Sandy Wilde, [facility] Interpreting Sarah Travis MD Physician Procedure [...] CO: 6.81 l/min LVOT CI: 3.35 l/min/m^2 [facility] Echo W/O Doppler(No Doppler)2021-09-09 14:32:05 Test Item Value Reference Range Interpretation Comments Ejection Fraction Est EF is 55-60% (test code = 2574) Radiology Study observation (narrative) (test code = 48658-3) PXN (test code = Sarah Travis PXN) - 09/09/2021 Transthoracic Echocardiography Report (TTE) Demographics Patient Name YAMILE, Date of Study 09/09/2021 GLEASON Gender Male Visit Number [id number] Race Unknown Room Number C622 Number Date of 2000 Referring Babita Cano Physician Age 21 year(s) Helmet Hat Sweatband Puncher Sandy Wilde, [facility] Interpreting Sarah Travis MD Physician Procedure [...] CO: 6.81 l/min LVOT CI: 3.35 l/min/m^2 [facility] Echo W/O Doppler(No Doppler)2021-09-09 14:32:05 Test Item Value Reference Range Interpretation Comments Ejection Fraction Est EF is 55-60% (test code = 2574) Radiology Study observation (narrative) (test code = 72850-5) PXN (test code = Sarah Travis PXN) - 09/09/2021 Transthoracic Echocardiography Report (TTE) Demographics Patient Name YAMILE, Date of Study 09/09/2021 GLEASON Gender Male Visit Number [id number] Race Unknown Room Number C622 Number Date of 2000 Referring Babita Cano Physician Age 21 year(s) Helmet [employer] Sweatband Puncher Sandy Wilde, [facility] Interpreting Sarah Travis MD Physician Procedure [...] CO: 6.81 l/min LVOT CI: 3.35 l/min/m^2 [facility] Echo W/O Doppler(No Doppler)2021-09-09 14:32:05 Test Item Value Reference Range Interpretation Comments Ejection Fraction Est EF is 55-60% (test code = 2574) Radiology Study observation (narrative) (test code = 57680-5) PXN (test code = Sarah Travis PXN) - 09/09/2021 Transthoracic Echocardiography Report (TTE) Demographics Patient Name YAMILE, Date of Study 09/09/2021 GLEASON Gender Male Visit Number [id number] Race Unknown Room Number C622 Number Date of 2000 Referring Babita Cano Physician Age 21 year(s) Helmet Hat Sweatband Puncher Sandy Wilde, [facility] Interpreting Sarah Travis MD Physician Procedure [...] CO: 6.81 l/min LVOT CI: 3.35 l/min/m^2 [facility] [id number] 11:38:39 Test Item Value Reference Range Interpretation Comments POC-GLUCOSE METER 137 mg/dL 70-110 H : TESTED A T [facility] 6720 (BEAKER) (test code = [facility], [facility]) [address]: Railroad Detective/Techni dakota ID = [id number] for JO MILLER POCT-GLUCOSE [id number] 06:55:56 Test Item Value Reference Range Interpretation Comments POC-GLUCOSE METER 151 mg/dL 70-110 H : TESTED A T [facility] 6720 (BEAKER) (test code = [facility], 1538) 14287: Railroad Detective/Techni dakota ID = [id number] for CODY MORENO, VALSA POCT-GLUCOSE [id number] 21:19:46 Test Item Value Reference Range Interpretation Comments POC-GLUCOSE METER 174 mg/dL 70-110 H : TESTED A T [facility] 6720 (BEAKER) (test code = [facility], 153) 81315: Railroad Detective/Techni dakota ID = [id number] for CODY MORENO, VALSA POCT-GLUCOSE [id number] 19:52:47 Test Item Value Reference Range Interpretation Comments POC-GLUCOSE METER 173 mg/dL 70-110 H : TESTED A T [facility] [address] (BEAKER) (test code = [facility], 1538) 33876: Railroad Detective/Techni dakota ID = [id number] for JENNIFER ARCINIEGA MRSA [id number] 15:07:47 Test Item Value Reference Range Interpretation Comments Result (test code = 6463-4) No [facility] [id number] 15:07:47 Test Item Value Reference Range Interpretation Comments Result (test code = 6463-4) No [facility] [id number] 15:07:47 Test Item Value Reference Range Interpretation Comments Result (test code = 6463-4) No MRSA isolated [facility] [id number] 15:07:47 Test Item Value Reference Range Interpretation Comments Result (test code = 6463-4) No [facility] [id number] 15:07:47 Test Item Value Reference Range Interpretation Comments CULTURE (BEAKER) (test code No MRSA isolated = 1095) POCT-GLUCOSE [id number] 11:36:26 Test Item Value Reference Range Interpretation Comments POC-GLUCOSE METER 268 mg/dL 70-110 H : TESTED A T [facility] 6720 (BEAKER) (test code = [facility], 1538) 71231: Railroad Detective/Techni dakota ID = [id number] for JENNIFER ARCINIEGA POCT-GLUCOSE [id number] 09:21:21 Test Item Value Reference Range Interpretation Comments POC-GLUCOSE METER 283 mg/dL 70-110 H : TESTED A T [facility] 6720 (BEAKER) (test code = [facility], 1538) 71235: Railroad Detective/Techni dakota ID = [id number] for JENNIFER ARCINIEGA ANTI-MITOCHONDRIAL AB, REFLEX TO [id number] 07:58:16 Test Item Value Reference Range Interpretation Comments SCAN RESULT (test code = 2614916) POCT-GLUCOSE [id number] 05:15:53 Test Item Value Reference Range Interpretation Comments POC-GLUCOSE METER 266 mg/dL 70-110 H : TESTED A T [facility] 6720 (BEAKER) (test code = [place], 1538) 116[address]: Railroad Detective/Techni dakota ID = [id number] for KAVITHA ESCOBAR COMPREHENSIVE METABOLIC [id number] 04:59:08 Test Item Value Reference Range Interpretation [...] S NOT APPLICABLE FOR DIALYSIS PATIEN TS. Railroad Detective ID - ALVINA [id number] 04:55:48 Test Item Value Reference Range Interpretation Comments MAGNESIUM (BEAKER) (test code = 1.7 mg/dL 1.6-2.6 627) Railroad Detective ID - ALVINA [id number] 04:55:48 Test Item Value Reference Range Interpretation Comments PHOSPHORUS (BEAKER) (test code = 1.6 mg/dL 2.3-4.7 L 604) Railroad Detective BEATRIZ TINSLEY [facility] W/PLT COUNT & AUTO [id number] 04:52:53 Test Item Value Reference Range Interpretation [...] PERCENT (BEAKER) (test code = 2801) POCT-GLUCOSE [id number] 23:21:41 Test Item Value Reference Range Interpretation Comments POC-GLUCOSE METER 268 mg/dL 70-110 H : TESTED A T [facility] 6720 (BEAKER) (test code = [place] [facility], 1538) 31598: Railroad Detective/Techni dakota ID = [id number] for KAVITHA ESCOBAR POCT-GLUCOSE [id number] 18:55:01 Test Item Value Reference Range Interpretation Comments POC-GLUCOSE METER 240 mg/dL 70-110 H : TESTED A T [facility] 6720 (BEAKER) (test code = [place] [facility], 1538) 58166: Railroad Detective/Techni dakota ID = [id number] for As Isiah mckeon PERIPHERAL BLOOD SMEAR - PATHOLOGIST [id number] 16:19:01 Test Item Value Reference Range Interpretation [...] MORPHOLOGY No Satellitosis (BEAKER) (test code = 983264) PLT MORPHOLOGY See comment Decreased in number (BEAKER) (test with normal code = 718265) morphology. R are to Occasional larg e forms. [facility]-PATHOLOGIST- Yvan Campoverde MD 4412 (BEAKER) (electronic (test code = signature) 2844) Urinalysis w/Microscopic + Reflex to [id number] 14:42:51 Test Item Value Reference Range Interpretation Comments Color, UA (test code Yellow = 5778-6) Clarity, UA (test Clear code = 5767-9) Specific [place], UA 1.025 1.001-1.035 (test code = 5811-5) pH, UA (test code = 6.0 5.0-8.0 5803-2) Protein, UA (test 100 mg/dL Negative A code = 93081-1) Glucose, UA (test 70 mg/dL Negative A code = 365) Ketones, UA (test 40 mg/dL Negative A code = 2514-8) Bilirubin, UA (test Negative Negative code = 23727-2) Blood, UA (test code Large Negative A = 58319-8) Nitrite, UA (test Negative Negative code = 5802-4) Leukocytes, UA (test Negative Negative code = 5799-2) Urobilinogen, UA 0.2 mg/dL 0.2-1.0 (test code = 97005-2) RBC, UA (test code = 30 See_Comment [Autom ated 81802-7) message] The system which generated this result [...] Bacteria, UA (test None Seen code = 58555-8) Mucus (test code = Few 8247-9) Hyaline Casts, UA 1 See_Comment [Automate d (test code = 07114-2) messag e] The system which generated this [...] Crystals, Urine (test None Seen code = 73470-3) Specimen Source (test code = 2795) IDALIA (test code = IDAILA) Railroad Detective ID - [auto]Railroad Detective ID - tech Lab Interpretation Abnormal (test code = 43532-2) [facility] + Reflex to Culture 2021-09-07 14:42:51 Test Item Value Reference Range Interpretation Comments Color, UA (test code Yellow = 5778-6) Clarity, UA (test Clear code = 5767-9) Specific [place], UA 1.025 1.001-1.035 (test code = 5811-5) pH, UA (test code = 6.0 5.0-8.0 5803-2) Protein, UA (test 100 mg/dL Negative A code = 08787-6) Glucose, UA (test 70 mg/dL Negative A code = 365) Ketones, UA (test 40 mg/dL Negative A code = 2514-8) Bilirubin, UA (test Negative Negative code = 25710-7) Blood, UA (test code Large Negative A = 71693-4) Nitrite, UA (test Negative Negative code = 5802-4) Leukocytes, UA (test Negative Negative code = 5799-2) Urobilinogen, UA 0.2 mg/dL 0.2-1.0 (test code = 27803-5) RBC, UA (test code = 30 See_Comment [Autom ated 44402-8) message] The system which generated this result [...] Bacteria, UA (test None Seen code = 24621-1) Mucus (test code = Few 8247-9) Hyaline Casts, UA 1 See_Comment [Automate d (test code = 37014-0) messag e] The system which generated this [...] Crystals, Urine (test None Seen code = 80045-7) Specimen Source (test code = 2795) IDALIA (test code = IDALIA) Railroad Detective ID - [auto]Railroad Detective ID - tech Lab Interpretation Abnormal (test code = 30586-9) [facility]scopic + Reflex to Culture 2021-09-07 14:42:51 Test Item Value Reference Range Interpretation Comments Color, UA (test code Yellow = 5778-6) Clarity, UA (test Clear code = 5767-9) Specific [place], UA 1.025 1.001-1.035 (test code = 5811-5) pH, UA (test code = 6.0 5.0-8.0 5803-2) Protein, UA (test 100 mg/dL Negative A code = 44907-0) Glucose, UA (test 70 mg/dL Negative A code = 365) Ketones, UA (test 40 mg/dL Negative A code = 2514-8) Bilirubin, UA (test Negative Negative code = 25455-5) Blood, UA (test code Large Negative A = 01195-5) Nitrite, UA (test Negative Negative code = 5802-4) Leukocytes, UA (test Negative Negative code = 5799-2) Urobilinogen, UA 0.2 mg/dL 0.2-1.0 (test code = 31918-7) RBC, UA (test code = 30 See_Comment [Autom ated 71209-5) message] The system which generated this result [...] Bacteria, UA (test None Seen code = 95633-0) Mucus (test code = Few 8247-9) Hyaline Casts, UA 1 See_Comment [Automate d (test code = 62376-0) messag e] The system which generated this [...] Crystals, Urine (test None Seen code = 70941-9) Specimen Source (test code = 2795) IDALIA (test code = IDALIA) Railroad Detective ID - [auto]Railroad Detective ID - tech Lab Interpretation Abnormal (test code = 38903-2) [facility]/Microscopic + Reflex to Culture 2021-09-07 14:42:51 Test Item Value Reference Range Interpretation Comments Color, UA (test code Yellow = 5778-6) Clarity, UA (test Clear code = 5767-9) Specific [place], UA 1.025 1.001-1.035 (test code = 5811-5) pH, UA (test code = 6.0 5.0-8.0 5803-2) Protein, UA (test 100 mg/dL Negative A code = 46399-6) Glucose, UA (test 70 mg/dL Negative A code = 365) Ketones, UA (test 40 mg/dL Negative A code = 2514-8) Bilirubin, UA (test Negative Negative code = 27918-5) Blood, UA (test code Large Negative A = 00775-2) Nitrite, UA (test Negative Negative code = 5802-4) Leukocytes, UA (test Negative Negative code = 5799-2) Urobilinogen, UA 0.2 mg/dL 0.2-1.0 (test code = 38697-7) RBC, UA (test code = 30 See_Comment [Autom ated 03598-6) message] The system which generated this result [...] Bacteria, UA (test None Seen code = 21015-1) Mucus (test code = Few 8247-9) Hyaline Casts, UA 1 See_Comment [Automate d (test code = 88568-9) messag e] The system which generated this [...] Crystals, Urine (test None Seen code = 25928-3) Specimen Source (test code = 2795) IDALIA (test code = IDALIA) Railroad Detective ID - [auto]Railroad Detective ID - tech Lab Interpretation Abnormal (test code = 18153-4) [facility]FLEX URINE [id number] 14:42:51 Test Item Value Reference Range Interpretation [...] = 1521) SOURCE(BEAKER) (test code = 2795) Railroad Detective ID - [auto]Railroad Detective ID - ybihUWFZLIMMWDVEK7173-18-90 13:45:54 Test Item Value Reference Range Interpretation Comments PROCALCITONIN (BEAKER) (test code 41.89 ng/mL <0.05 HH = 3036) SEPSIS RISK (ng/mL)Low: 0.05-0.50Intermediate: 0.51-2.00High: >=2.01 [id number] 13:10:47 Test Item Value Reference Range Interpretation Comments HAPTOGLOBIN (BEAKER) (test code = 367 mg/dL 14-258 H 366) Railroad Detective ID - BSOperator ID - BSCOMPREHENSIVE METABOLIC [id number] 12:56:57 Test Item Value Reference Range Interpretation [...] S NOT APPLICABLE FOR DIALYSIS PATIEN TS. Railroad Detective ID - BSHEPATIC FUNCTION [id number] 12:56:40 Test Item Value Reference Range Interpretation [...] Specimen slightly (test code = 347) hemolyzed Railroad Detective ID - [id number] 12:56:40 Test Item Value Reference Range Interpretation Comments LIPASE (BEAKER) (test code = 749) 132 U/L 8-78 H Railroad Detective ID - [id number] 12:56:39 Test Item Value Reference Range Interpretation Comments MAGNESIUM (BEAKER) 1.9 mg/dL 1.6-2.6 Specimen slightly (test code = 627) hemolyzed Railroad Detective ID - WORDGWGTBQSY8750-10-16 12:56:39 Test Item Value Reference Range Interpretation Comments PHOSPHORUS (BEAKER) 2.9 mg/dL 2.3-4.7 Specimen slightly (test code = 604) hemolyzed Railroad Detective ID - BSVANCOMYCIN LEVEL, [id number] 12:51:35 Test Item Value Reference Range Interpretation Comments VANCOMYCIN TROUGH (BEAKER) (test 14.4 ug/mL 10.0-20.0 code = 522) Railroad Detective ID - BAQBTJQUJDHQ3469-04-20 12:43:54 Test Item Value Reference Range Interpretation Comments FIBRINOGEN LEVEL (BEAKER) (test 715 mg/dl 225-434 H code = 658) HEMOGLOBIN AND [id number] 12:34:38 Test Item Value Reference Range Interpretation Comments HEMOGLOBIN (BEAKER) (test code = 8.0 GM/DL 13.7-17.5 L 410) HEMATOCRIT (BEAKER) (test code = 26.2 % 40.1-51.0 L 411) Railroad Detective ID - 6000POCT-GLUCOSE [id number] 12:12:10 Test Item Value Reference Range Interpretation Comments POC-GLUCOSE METER 152 mg/dL 70-110 H : TESTED A T [facility] 6720 (BEAKER) (test code = [place], 1538) [address]: Railroad Detective/Techni dakota ID = [id number] for Patrick Perez ANTI-DNA [id number] 11:19:56 Test Item Value Reference Range Interpretation Comments ANTI-DNA TITER (BEAKER) (test code = :80 1553) DOUBLE-STRANDED DNA (DSDNA) [id number] 11:19:49 Test Item Value Reference Range Interpretation Comments ANTI-DNA DS (BEAKER) (test code = Positive Negative 1055) ANTI-DNA [id number] 11:19:10 Test Item Value Reference Range Interpretation Comments ANTI-DNA TITER (BEAKER) (test code = :80 1553) DOUBLE-STRANDED DNA (DSDNA) [id number] 11:19:04 Test Item Value Reference Range Interpretation Comments ANTI-DNA DS (BEAKER) (test code = Positive Negative 1055) LACTATE DEHYDROGENASE (LDH)2021-09-07 10:00:12 Test Item Value Reference Range Interpretation Comments LACTATE DEHYDROGENASE (BEAKER) (test 723 U/L 125-220 H code = 635) Railroad Detective ID - BSBILIRUBIN, [id number] 10:00:11 Test Item Value Reference Range Interpretation Comments BILIRUBIN DIRECT (BEAKER) (test 0.8 mg/dL 0.1-0.5 H code = 706) Railroad Detective ID - BSCBC W/PLT COUNT & AUTO [id number] 08:25:03 Test Item Value Reference Range Interpretation [...] 487) LARGE PLT(BEAKER) (test code = Present 2155) POLYCHROMATOPHILLIC RBCS(BEAKER) 1+ few (test code = [...] CONCENTRATION Decreased (CELLAVISION)(BEAKER) (test code = 3438) Railroad Detective ID - [id number] ID - Kyree comments: Slide comments:B-TYPE NATRIURETIC FACTOR (BNP)2021-09-07 06:31:12 Test Item Value Reference Range Interpretation Comments B-TYPE NATRIURETIC PEPTIDE (BEAKER) 269 pg/mL 0-100 H (test code = 700) Railroad Detective ID - BSLACTIC ACID, [id number] 06:10:21 Test Item Value Reference Range Interpretation Comments LACTATE BLOOD VENOUS (2) (BEAKER) 0.76 mmol/L 0.50-2.20 (test code = 2872) Railroad Detective ID - [id number]-[id number] 03:08:41 Test Item Value Reference Range Interpretation Comments POC-Glucose (test code = 153 mg/dL 70-110 H : T ESTED AT [facility] 1855) 67[address] [facility], [address]: Railroad Detective/Techni dakota ID = [id number] for URCIA, FAMELA Lab Interpretation (test Abnormal code = 59352-1) [facility] CenterOzbnstNAZP-[id number] 03:08:41 Test Item Value Reference Range Interpretation Comments POC-Hematocrit (test code 21 % 40-50 L : = 1857) Railroad Detective/Techni dakota ID = [id number] for URCIA, FAMELA Lab Interpretation (test Abnormal code = 83949-2) [facility] CenterPOCT-[id number] 03:08:41 Test Item Value Reference Range Interpretation Comments POC-Glucose (test code = 153 mg/dL 70-110 H : T ESTED AT [facility] 1855) [address] [place] [address], 7[address]: Railroad Detective/Techni dakota ID = [id number] for URCIA, FAMELA Lab Interpretation (test Abnormal code = 34238-1) [facility]-[id number] 03:08:41 Test Item Value Reference Range Interpretation Comments POC-Hematocrit (test code 21 % 40-50 L : = 1857) Railroad Detective/Techni dakota ID = [id number] for URCIA, FAMELA Lab Interpretation (test Abnormal code = 91995-6) [facility]-[id number] 03:08:41 Test Item Value Reference Range Interpretation Comments POC-Glucose (test code = 153 mg/dL 70-110 H : T ESTED AT [facility] 1855) [address] [place] [address], 770 30: Railroad Detective/Techni dakota ID = [id number] for URCIA, FAMELA Lab Interpretation (test Abnormal code = 10135-2) [facility]-[id number] 03:08:41 Test Item Value Reference Range Interpretation Comments POC-Hematocrit (test code 21 % 40-50 L : = 1857) Railroad Detective/Techni dakota ID = [id number] for URCIA, FAMELA Lab Interpretation (test Abnormal code = 80023-3) [facility]-[id number] 03:08:41 Test Item Value Reference Range Interpretation Comments POC-Glucose (test code = 153 mg/dL 70-110 H : T ESTED AT [facility] 1855) [address] [place] [address], 770 30: Railroad Detective/Techni dakota ID = [id number] for URCIA, FAMELA Lab Interpretation (test Abnormal code = 32468-8) [facility]-[id number] 03:08:41 Test Item Value Reference Range Interpretation Comments POC-Hematocrit (test code 21 % 40-50 L : = 1857) Railroad Detective/Techni dakota ID = [id number] for URCIA, FAMELA Lab Interpretation (test Abnormal code = 43410-3) [facility]-[id number] 03:08:41 Test Item Value Reference Range Interpretation Comments POC-HEMATOCRIT 21 % 40-50 L : Railroad Detective/Te chnician ID = (GENEVA) (test code = 232458 for URCIA, FAMELA 1857) [id number] 03:08:41 Test Item Value Reference Range Interpretation Comments POC-GLUCOSE (GENEVA) 153 mg/dL 70-110 H : TESTE D AT [facility] 6720 (test code = 1855) [facility], [address]: Railroad Detective/Techni dakota ID = [id number] for URCI A, FAMELA OUR-[id number] 03:08:40 Test Item Value Reference Range Interpretation Comments POC-Potassium (test code 3.8 meq/L 3.6-5.5 : T ESTED AT [facility] = 1540) [address] [place] [address], 7[address]: Railroad Detective/Techni dakota ID = [id number] for URCIA, FAMELA Lab Interpretation (test Normal code = 00124-5) [facility]CT-[id number] 03:08:40 Test Item Value Reference Range Interpretation Comments POC-Hemoglobin (test code 7.1 g/dL 13.0-16.8 L : TESTED AT [facility] = 1856) [address] [place] [address], [address]: Railroad Detective/Techni dakota ID = [id number] for URCIA, FAMELA Lab Interpretation (test Abnormal code = 29587-8) [facility] CenterPOC-Lunwumssw5873-65-87 03:08:40 Test Item Value Reference Range Interpretation Comments POC-Potassium (test code 3.8 meq/L 3.6-5.5 : T ESTED AT [facility] = 1540) [address] [place] [address], 7[address]: Railroad Detective/Techni dakota ID = [id number] for URCIA, FAMELA Lab Interpretation (test Normal code = 88459-7) [facility]-UWVPNKFOWH7875-03-43 03:08:40 Test Item Value Reference Range Interpretation Comments POC-Hemoglobin (test code 7.1 g/dL 13.0-16.8 L : TESTED AT [facility] = 1856) [address] [place] [address], 770 30: Railroad Detective/Techni dakota ID = [id number] for URCIA, FAMELA Lab Interpretation (test Abnormal code = 26445-7) [facility]-Cbjgcwqki2613-95-27 03:08:40 Test Item Value Reference Range Interpretation Comments POC-Potassium (test code 3.8 meq/L 3.6-5.5 : T ESTED AT [facility] = 1540) [address] [place] [address], 7[address]: Railroad Detective/Techni dakota ID = [id number] for URCIA, FAMELA Lab Interpretation (test Normal code = 61577-5) [facility]-[id number] 03:08:40 Test Item Value Reference Range Interpretation Comments POC-Hemoglobin (test code 7.1 g/dL 13.0-16.8 L : TESTED AT [facility] = 1856) [address] [place] [address], 7[address]: Railroad Detective/Techni dakota ID = [id number] for URCIA, FAMELA Lab Interpretation (test Abnormal code = 11510-9) [facility]-Cbovwrcvm3315-96-32 03:08:40 Test Item Value Reference Range Interpretation Comments POC-Potassium (test code 3.8 meq/L 3.6-5.5 : T ESTED AT [facility] = 1540) [address] [place] [address], 7[address] 30: Railroad Detective/Techni dakota ID = [id number] for URCIA, FAMELA Lab Interpretation (test Normal code = 08249-2) [facility]CT-[id number] 03:08:40 Test Item Value Reference Range Interpretation Comments POC-Hemoglobin (test code 7.1 g/dL 13.0-16.8 L : TESTED AT [facility] = 1856) [address] [place] [address], 7[address]: Railroad Detective/Techni dakota ID = [id number] for URCIA, FAMELA Lab Interpretation (test Abnormal code = 61375-6) [facility]-WOTZDZWCF4098-02-17 03:08:40 Test Item Value Reference Range Interpretation Comments POC-POTASSIUM 3.8 meq/L 3.6-5.5 : TESTED AT [facility] 6720 (BEAKER) (test code [facility], = 1540) [address]: Railroad Detective/Techni dakota ID = [id number] for URCI A, FAMELA OJPN-[id number] 03:08:40 Test Item Value Reference Range Interpretation Comments POC-HEMOGLOBIN 7.1 g/dL 13.0-16.8 L : TESTED AT [facility] 6720 (BEAKER) (test code = [place], 185) [address]: Railroad Detective/Techni dakota ID = [id number] for URCI A, FAMELA POC-Blood gases, [id number] 03:08:39 Test Item Value Reference Range Interpretation [...] tomated message] code = 1838) The system [employer] h generated this result transmit hernandez reference range : 80.0 - 90.0 mm Hg. The reference r colby was not used to interpret this result as normal/abnormal . SO2, Arterial-POC (test 91.0 % 96.0-97.0 L code = 1839) HCO3, Arterilal-POC 22.2 meq/L 21.0-29.0 (test code = 1840) BE, Arterial-POC (test -2.0 meq/L -2.0-3.0 : LIONEL HERNANDEZ AT [facility] code = 1841) [address]20 [facility], [address]: Railroad Detective/Techni dakota ID = [id number] for URCIA, FAMELA Lab Interpretation Abnormal (test code = 32899-1) [facility]-[id number] 03:08:39 Test Item Value Reference Range Interpretation Comments POC-Sodium (test code = 134 meq/L 135-148 L : TE STED AT [facility] 1542) [address] [facility] [place], [address]: Railroad Detective/Techni dakota ID = [id number] for URCIA, FAMELA Lab Interpretation (test Abnormal code = 42431-2) [facility]-Blood gases, [id number] 03:08:39 Test Item Value Reference Range Interpretation [...] tomated message] code = 1838) The system [employer] h generated this result transmit hernandez reference range : 80.0 - 90.0 mm Hg. The reference r colby was not used to interpret this result as normal/abnormal . SO2, Arterial-POC (test 91.0 % 96.0-97.0 L code = 1839) HCO3, Arterilal-POC 22.2 meq/L 21.0-29.0 (test code = 1840) BE, Arterial-POC (test -2.0 meq/L -2.0-3.0 : LIONEL HERNANDEZ AT [facility] code = 1841) [address] [facility], [address]: Railroad Detective/Techni dakota ID = [id number] for URCIA, FAMELA Lab Interpretation Abnormal (test code = 59767-8) [facility]-Sxtihl0790-27-14 03:08:39 Test Item Value Reference Range Interpretation Comments POC-Sodium (test code = 134 meq/L 135-148 L : TE STED AT [facility] 1542) 67[address] [facility], 7[address]: Railroad Detective/Techni dakota ID = [id number] for URCIA, FAMELA Lab Interpretation (test Abnormal code = 50988-7) [facility]-Blood gases, [id number] 03:08:39 Test Item Value Reference Range Interpretation [...] tomated message] code = 1838) The system [employer] h generated this result transmit hernandez reference range : 80.0 - 90.0 mm Hg. The reference r colby was not used to interpret this result as normal/abnormal . SO2, Arterial-POC (test 91.0 % 96.0-97.0 L code = 1839) HCO3, Arterilal-POC 22.2 meq/L 21.0-29.0 (test code = 1840) BE, Arterial-POC (test -2.0 meq/L -2.0-3.0 : LIONEL HERNANDEZ AT [facility] code = 1841) [address] [facility], [address]: Railroad Detective/Techni dakota ID = [id number] for URCIA, FAMELA Lab Interpretation Abnormal (test code = 22361-7) [facility]-Sdfhfm2587-88-35 03:08:39 Test Item Value Reference Range Interpretation Comments POC-Sodium (test code = 134 meq/L 135-148 L : TE STED AT [facility] 1542) [address] [facility] [place], [address]: Railroad Detective/Techni dakota ID = [id number] for URCIA, FAMELA Lab Interpretation (test Abnormal code = 99202-6) [facility]-Blood gases, [id number] 03:08:39 Test Item Value Reference Range Interpretation [...] -2.0 meq/L -2.0-3.0 : LIONEL HERNANDEZ AT [facility] code = 1841) [address] [facility], [address]: Railroad Detective/Techni dakota ID = [id number] for URCIA, FAMELA Lab Interpretation Abnormal (test code = 18051-9) [facility]-[id number] 03:08:39 Test Item Value Reference Range Interpretation Comments POC-Sodium (test code = 134 meq/L 135-148 L : TE STED AT [facility] 1542) [address] [facility] [place], [address]: Railroad Detective/Techni dakota ID = [id number] for URCIA, FAMELA Lab Interpretation (test Abnormal code = 43590-0) [facility]-BLOOD GASES, [id number] 03:08:39 Test Item Value Reference Range Interpretation [...] EXCESS, -2.0 meq/L -2.0-3.0 : TESTED AT [facility] 6720 ARTERIAL-POC [facility], (BEAKER) (test code [address]: = 1841) Railroad Detective/Techni dakota ID = [id number] for URCI A, FAMELA VGUO-[id number] 03:08:39 Test Item Value Reference Range Interpretation Comments POC-SODIUM (BEAKER) 134 meq/L 135-148 L : TESTED AT [facility] 6720 (test code = 1542) [facility] [place], [address]: Railroad Detective/Techni dakota ID = [id number] for URCI A, FAMELA RAD, CHEST, 1 VIEW, NON [id number] 03:00:00Reason for exam:- >destaurationShould this be performed at the bedside?->Yes [facility] 2000 Sex: MFINAL [...] MDReport Verified Date/Time: 09/07/2021 03:00:20 BASIC METABOLIC [id number] 01:49:40 Test Item Value Reference Range Interpretation [...] S NOT APPLICABLE FOR DIALYSIS PATIEN TS. Railroad Detective ID - [id number] 01:38:31 Test Item Value Reference Range Interpretation Comments PHOSPHORUS (BEAKER) (test code = 3.1 mg/dL 2.3-4.7 604) Railroad Detective ID - UAGCMBJZOMF9926-13-22 01:38:30 Test Item Value Reference Range Interpretation Comments MAGNESIUM (BEAKER) (test code = 1.9 mg/dL 1.6-2.6 627) Railroad Detective ID - BSPOCT-GLUCOSE [id number] 00:10:21 Test Item Value Reference Range Interpretation Comments POC-GLUCOSE METER 128 mg/dL 70-110 H : TESTED A T [facility] 6720 (BEAKER) (test code = [place], 1538) [address]: Railroad Detective/Techni dakota ID = [id number] for ABBIE PIERRE POCT-GLUCOSE [id number] 15:58:02 Test Item Value Reference Range Interpretation Comments POC-GLUCOSE METER 142 mg/dL 70-110 H : [facility] (GENEVA) (test code = DONNA [place] [facility], 1538) [address]: Railroad Detective/Techni dakota ID = [id number] for Laura Ch POCT-GLUCOSE [id number] 13:04:07 Test Item Value Reference Range Interpretation Comments POC-GLUCOSE METER 141 mg/dL 70-110 H : [facility] (GENEVA) (test code = DONNA [place] [facility], 1538) [address]: Railroad Detective/Techni dakota ID = [id number] for Laura Ch TSH/FREE T4 IF [id number] 11:33:39 Test Item Value Reference Range Interpretation Comments THYROID STIMULATING HORMONE 4.429 uIU/mL 0.350-4.940 (GENEVA) (test code = 772) Railroad Detective ID - PIAYASARS-COV2/RT-PCR ([facility])2021-09-06 10:50:02 Test Item Value Reference Range Interpretation Comments SARS-COV2/RT-PCR (test Negative Not Detected, Negative, code = 5671149) See external report for linked test SARS-COV-2 PERFORMING LAB [facility] (test code = 9676912) Negative result for this test determines that [...] of the Act.Fact Sheet for Healthcare Prov iders:https://www.[employer]/sites/default/files/product/documents/Fact_Sheet_HC _Ivwogkvhw_Caoh_ZDLY-HvL-6.pdfFact Sheet for Healthcare Patients:https://www.[employer]/sites/default/files/product/docume nts/Lvvn_Alqok_Wnjhslxb_Nxvr_WTYJ-ZsZ-2.pdfPerforming Laboratory:[place] [address], [place] [address]PMBPPKF D, 25-HYDROXY 2021-09-06 07:57:12 Test Item Value Reference Range Interpretation Comments VITAMIN D 25-OH (BEAKER) (test 15.4 ng/mL 6.6-49.9 code = 2764) Effective 02/27/2017: Reference Range ChangeNew: 6.6-49.9 ng/mL Previous: 13.0- 47.8 ng/mLRecommendedVitamin D Target Range: 30.0-40.0 ng/mLOperator ID - BS POCT-GLUCOSE [id number] 07:40:30 Test Item Value Reference Range Interpretation Comments POC-GLUCOSE METER 157 mg/dL 70-110 H : TESTED A T [facility] 6720 (BEAKER) (test code = DONNA [place] [facility], 1538) [address]: Railroad Detective/Techni dakota ID = [id number] for Laura Ch COMPLEMENT COMPONENT [id number] 07:37:31 Test Item Value Reference Range Interpretation Comments C3 COMPLEMENT (BEAKER) (test code = 25 mg/dL 82-193 L 393) Railroad Detective ID - BSCOMPLEMENT COMPONENT [id number] 07:37:30 Test Item Value Reference Range Interpretation Comments C4 COMPLEMENT (BEAKER) (test code = 4 mg/dL 15-57 L 394) Railroad Detective ID - BSPROTEIN, RANDOM [id number] 07:28:02 Test Item Value Reference Range Interpretation Comments PROTEIN, URINE (BEAKER) (test code 411 mg/dL 0-14 H = 1569) Railroad Detective ID - BS(CELLAVISION MANUAL DIFF)2021-09-06 07:15:58 Test [...] CONCENTRATION Decreased (CELLAVISION)(BEAKER) (test code = 3438) Railroad Detective ID - [id number] ID - joanna Mercerr comments: Slide comments:CBC W/PLT COUNT & AUTO [id number] 07:15:57 Test Item Value Reference Range Interpretation [...] (BEAKER) (test code = 413) CREATININE, RANDOM [id number] 06:26:45 Test Item Value Reference Range Interpretation Comments CREATININE URINE (BEAKER) (test 200.4 mg/dL code = 375) Reference Range: No NormalsOperator ID - BSURINALYSIS W/ [id number] 06:06:22 Test Item Value Reference Range Interpretation [...] = 1584) SOURCE(BEAKER) (test code = 2795) Railroad Detective ID - [auto]Railroad Detective ID - techOperator ID - techCOMPREHENSIVE METABOLIC [id number] 02:54:37 Test Item Value Reference Range Interpretation [...] S NOT APPLICABLE FOR DIALYSIS PATIEN TS. Railroad Detective ID - BSLACTIC ACID, [id number] 02:42:48 Test Item Value Reference Range Interpretation Comments LACTATE BLOOD VENOUS (2) (BEAKER) 1.38 mmol/L 0.50-2.20 (test code = 2872) Railroad Detective ID - [id number] 02:36:26 Test Item Value Reference Range Interpretation Comments MAGNESIUM (BEAKER) (test code = 1.6 mg/dL 1.6-2.6 627) Railroad Detective ID - [id number] 02:36:26 Test Item Value Reference Range Interpretation Comments PHOSPHORUS (BEAKER) (test code = 2.4 mg/dL 2.3-4.7 604) Railroad Detective ID - BSRAD, CHEST, 1 VIEW, NON [id number] 02:26:00Reason for exam:->sobDOMINICAN HOSPITALName: [facility]IE [facility]VALLE : 2000 Sex: MFINAL [...] Vernell Ndiaye Verified Date/Time: 09/06/2021 02:26:55 POCT-GLUCOSE [id number] 01:16:19 Test Item Value Reference Range Interpretation Comments POC-GLUCOSE METER 164 mg/dL 70-110 H : TESTED A T [facility] 6720 (BEAKER) (test code = DONNA [place] [facility], 1538) [address]: Railroad Detective/Techni dakota ID = [id number] for GR KIRBY, WENDY BASIC METABOLIC [id number] 19:41:58 Test Item Value Reference Range Interpretation [...] S NOT APPLICABLE FOR DIALYSIS PATIEN TS. Railroad Detective ID - [id number] 19:38:29 Test Item Value Reference Range Interpretation Comments MAGNESIUM (BEAKER) (test code = 1.7 mg/dL 1.6-2.6 627) Railroad Detective ID - [id number] 19:38:29 Test Item Value Reference Range Interpretation Comments PHOSPHORUS (BEAKER) (test code = 2.0 mg/dL 2.3-4.7 L 604) Railroad Detective ID - BSPOCT-GLUCOSE [id number] 19:12:09 Test Item Value Reference Range Interpretation Comments POC-GLUCOSE METER 184 mg/dL 70-110 H : [facility] (BEAKER) (test code = [place], 1538) [address]: Railroad Detective/Techni dakota ID = [id number] for CHANTE GIL [id number] 17:52:47 Test Item Value Reference Range Interpretation Comments FERRITIN (BEAKER) (test code = 4212.17 ng/mL 5.00-275.00 H 361) Railroad Detective ID - BSOperator ID - BSCT, [id number] 12:57:00Unlisted Reason for Exam - Click Yes and Enter Reason Below->YesUnlisted Reason for Exam->pancreatitis folllow-upIs this for enterography?->NoWill this procedure require oral contrast?->No [facility] : 2000 Sex: [...] MDReport Verified Date/Time: 09/05/2021 12:57:43 Reading Location: [facility] Reading Room - [place] 206429 POCT-GLUCOSE [id number] 12:23:38 Test Item Value Reference Range Interpretation Comments POC-GLUCOSE METER 181 mg/dL 70-110 H : TESTED A T [facility] 6720 (BEAKER) (test code = [facility], 1538) [address]: Railroad Detective/Techni dakota ID = [id number] for CHANTE GIL POCT-GLUCOSE [id number] 06:55:24 Test Item Value Reference Range Interpretation Comments POC-GLUCOSE METER 197 mg/dL 70-110 H : TESTED A T [facility] 6720 (BEAKER) (test code = [facility], 1538) [address]6063: Railroad Detective/Techni dakota ID = [id number] for ON UOHA, ALLAN COMPREHENSIVE METABOLIC [id number] 06:16:59 Test Item Value Reference Range Interpretation [...] S NOT APPLICABLE FOR DIALYSIS PATIEN TS. Railroad Detective ID - SHREE WCALCIUM, [id number] 05:57:49 Test Item Value Reference Range Interpretation [...] WBC 0-0 (BEAKER) (test code = 413) [id number] 01:18:24 Test Item Value Reference Range Interpretation Comments PHOSPHORUS (BEAKER) (test code = 1.2 mg/dL 2.3-4.7 LL 604) Railroad Detective ID - BSBASIC METABOLIC [id number] 01:17:10 Test Item Value Reference Range Interpretation [...] S NOT APPLICABLE FOR DIALYSIS PATIEN TS. Railroad Detective ID - [id number] 01:10:55 Test Item Value Reference Range Interpretation Comments MAGNESIUM (BEAKER) (test code = 2.3 mg/dL 1.6-2.6 627) Railroad Detective ID - BSPOCT-GLUCOSE [id number] 00:50:48 Test Item Value Reference Range Interpretation Comments POC-GLUCOSE METER 194 mg/dL 70-110 H : TESTED A T [facility] 6720 (BEAKER) (test code = DONNA CHARLES [place], 1538) 89389: Railroad Detective/Techni dakota ID = [id number] for ON UOHA, ALLAN CT, CHEST WITH IV CONTRAST- PE TEST [id number] 21:21:00Unlisted Reason for Exam - Click Yes and Enter Reason Below->No [facility] 2000 Sex: MFINAL [...] Vernell Ndiaye Verified Date/Time: 09/04/2021 21:21:16 POCT-GLUCOSE [id number] 18:23:42 Test Item Value Reference Range Interpretation Comments POC-GLUCOSE METER 248 mg/dL 70-110 H : TESTED A T [facility] 6720 (BEAKER) (test code = [facility], 1538) 59761: Railroad Detective/Techni dakota ID = [id number] for Bree Roman [id number] 14:56:22 Test Item Value Reference Range Interpretation Comments CALCIUM (BEAKER) (test code = 697) 5.8 mg/dL 8.4-10.2 LL Railroad Detective ID - ADMINPOCT-GLUCOSE [id number] 13:17:18 Test Item Value Reference Range Interpretation Comments POC-GLUCOSE METER 217 mg/dL 70-110 H : TESTED A T [facility] 6720 (BEAKER) (test code = [facility], 1538) 04991: Railroad Detective/Techni dakota ID = [id number] for Liana Flores CBC W/PLT COUNT & AUTO [id number] 07:22:59 Test Item Value Reference Range Interpretation [...] PERCENT (BEAKER) (test code = 2801) POCT-GLUCOSE [id number] 06:16:20 Test Item Value Reference Range Interpretation Comments POC-GLUCOSE METER 261 mg/dL 70-110 H : TESTED A T [facility] 6720 (BEAKER) (test code = [place]NA CHAR[place], 1538) 59123: Railroad Detective/Techni dakota ID = [id number] for KENDALL JOYA COMPREHENSIVE METABOLIC [id number] 05:49:22 Test Item Value Reference Range Interpretation [...] S NOT APPLICABLE FOR DIALYSIS PATIEN TS. Railroad Detective ID - [id number] 05:33:14 Test Item Value Reference Range Interpretation Comments MAGNESIUM (BEAKER) (test code = 1.8 mg/dL 1.6-2.6 627) Railroad Detective ID - ADMINURINALYSIS W/ REFLEX URINE [id number] 01:34:44 Test Item Value Reference Range Interpretation [...] 1585) Rare SOURCE(BEAKER) (test code = 2795) Railroad Detective ID - [auto]Railroad Detective ID - techPOCT-GLUCOSE [id number] 00:34:17 Test Item Value Reference Range Interpretation Comments POC-GLUCOSE METER 261 mg/dL 70-110 H : TESTED A T [facility] 6720 (BEAKER) (test code = DONNA WHITMAN, 1538) 85072: Railroad Detective/Techni dakota ID = [id number] for KENDALL JOYA [id number] 18:57:34 Test Item Value Reference Range Interpretation Comments MAGNESIUM (BEAKER) (test code = 1.3 mg/dL 1.6-2.6 L 627) Railroad Detective ID - ADMINPOCT-GLUCOSE [id number] 18:04:02 Test Item Value Reference Range Interpretation Comments POC-GLUCOSE METER 307 mg/dL 70-110 H : TESTED A T [facility] 6720 (BEAKER) (test code = [place]NA CHARLES [place], 1538) 35458: Railroad Detective/Techni dakota ID = [id number] for Liana Flores RAD, ABDOMEN/KUB, 1 VIEW [id number] 18:01:00Reason for exam:->Enteric tube placement verification [facility] : 2000 Sex: MFINAL [...] MDReport Verified Date/Time: 09/03/2021 18:01:34 COMPREHENSIVE METABOLIC [id number] 17:50:55 Test Item Value Reference Range Interpretation [...] S NOT APPLICABLE FOR DIALYSIS PATIEN TS. Railroad Detective ID - [id number] ID - [id number] ID - ADMINCBC W/PLT COUNT & AUTO [id number] 17:43:10 Test Item Value Reference Range Interpretation [...] code = 2801) RAD, ABDOMEN/KUB, 1 VIEW [id number] 17:14:00Reason for exam:->confirm N[facility] : 2000 Sex: MFINAL REPORT RAD, ABDOMEN/KUB, 1 VIEW AP CLINICAL INDICATION: confirm NGT placement COMPARISON: None TECHNIQUE: Single, frontal radiograph of the abdomen. FINDINGS:Feeding tube tip overlies the distal duodenum. The bowel gas pattern is nonspecific, but nonobstructive. Evaluation for freeair is limited by portable supine technique. Within these limitations, no free air is identified. Signed: Anne Marie Correa Verified Date/Time: 09/03/2021 17:14:35 , CHEST, 1 VIEW, NON [id number] 16:50:00Reason for exam:->ngt placementShould this be performed at the bedside?->Yes [facility] 2000 Sex: MFINAL REPORT INDICATION: ngt placement COMPARISON: None TECHNIQUE: Single frontal viewof the chest. FINDINGS: Lungs and pleura: Trace right effusion and basilar atelectasisHeart and mediastinum: Normal heart size. Unremarkable mediastinal contours.Osseous structures: No acute abnormality .Other: Feeding tube descends below the diaphragm. Signed: Anne Marie Correa Verified Date/Time: 09/03/2021 16:50:54 [id number] 10:58:42 Test Item Value Reference Range Interpretation Comments PHOSPHORUS (BEAKER) 1.6 mg/dL 2.3-4.7 L Specimen slightly (test code = 604) hemolyzed Railroad Detective ID - BISI GCOMPREHENSIVE METABOLIC [id number] 06:03:24 Test Item Value Reference Range Interpretation [...] S NOT APPLICABLE FOR DIALYSIS PATIEN TS. Railroad Detective ID - BISI GPOCT-GLUCOSE [id number] 22:25:14 Test Item Value Reference Range Interpretation Comments POC-GLUCOSE METER 312 mg/dL 70-110 H : TESTED A T [facility] 6720 (GENEVA) (test code = DONNA [place] [facility], 1538) 16085: Railroad Detective/Techni dakota ID = [id number] for FABRIZIO JOYCE POCT-GLUCOSE [id number] 19:00:17 Test Item Value Reference Range Interpretation Comments POC-GLUCOSE METER 339 mg/dL 70-110 H : Notified RN/MD: (GENEVA) (test code = TESTED AT [facility] 6720 1538) DINORA [facility], 32492: Railroad Detective/Techni dakota ID = [id number] for Pauly mccord (contract)Emeka yana PROTEIN, RANDOM [id number] 08:28:13 Test Item Value Reference Range Interpretation Comments PROTEIN, URINE (BEAKER) (test code 243 mg/dL 0-14 H = 1569) Railroad Detective ID - BSOperator ID - BSCREATININE, RANDOM [id number] 07:21:31 Test Item Value Reference Range Interpretation Comments CREATININE URINE (BEAKER) (test 122.9 mg/dL code = 375) Reference Range: No NormalsOperator ID - BSRAD, CHEST, 1 VIEW, NON DEPT 2021-09-02 01:55:00Reason for exam:->chest painShould this be performed at the bedside?->Yes [facility] : 2000 Sex: MFINALREPORT History: chest pain. Comparison: None. Findings: A single view of the chest is submitted. The cardiomediastinal contours are unremarkable. There is no focal consolidation, pneumothorax, large pleural effusion or evidence of overt pulmonary edema. There is no acute bony abnormality. Impression: No acute abnormality. Signed: Miles Alicia Verified Date/Time: 09/02/2021 01:55:59 -GLUCOSE [id number] 23:28:42 Test Item Value Reference Range Interpretation Comments POC-GLUCOSE METER 277 mg/dL 70-110 H : TESTED A T [facility] 6720 (BuzzStarter) (test code = [employer] [facility], 1538) 90187: Railroad Detective/Techni dakota ID = [id number] for PAULINA RODRIGUES POCT-GLUCOSE [id number] 18:19:51 Test Item Value Reference Range Interpretation Comments POC-GLUCOSE METER 263 mg/dL 70-110 H : TESTED A T [facility] 6720 (BuzzStarter) (test code = [employer] [facility], 1538) 61470: Railroad Detective/Techni dakota ID = [id number] for Laura Ch HIGH SENSITIVITY TROPONIN [id number] 17:04:34 Test Item Value Reference Range Interpretation Comments HIGH SENSITIVITY < pg/ml See_Comment [Automated message] TROPONIN I (test code = The system which 1059937) generated this result transmitted ref erence range: <=35. Th e reference range was not used to interpr et this result as normal/abnormal . Railroad Detective ID - BSThe HOT END OPERATOR STAT High Sensitivity Troponin-I results should be used in conjunctionwith other diagnostic information such as ECG, clinical observations and information, and patient symptoms to aid in the diagnosis of [place].(CELLAVISION MANUAL DIFF)2021-09-01 10:37:19 Test Item Value Reference [...] CONCENTRATION Decreased (CELLAVISION)(BEAKER) (test code = 3438) Railroad Detective ID - [id number] ID - joanna balsaraUser comments: Slide comments:CBC W/PLT COUNT & AUTO [id number] 10:37:18 Test Item Value Reference Range Interpretation [...] (BEAKER) (test code = 413) COMPREHENSIVE METABOLIC [id number] 07:28:31 Test Item Value Reference Range Interpretation [...] S NOT APPLICABLE FOR DIALYSIS PATIEN TS. Railroad Detective ID - BSIMMUNOGLOBULIN A (IGA)2021-09-01 07:27:15 Test Item Value Reference Range Interpretation Comments IMMUNOGLOBULIN A (IGA) (BEAKER) 235 mg/dL 63-484 (test code = 639) Railroad Detective ID - BSPT/[id number] 07:11:49 Test Item Value Reference Range Interpretation [...] 2.5-3.5 for patients with mechanical heart valves.PROTHROMBIN TIME/[id number] 07:11:14 Test Item Value Reference Range Interpretation Comments PROTIME (BEAKER) 13.5 seconds 11.9-14.2 (test code = 759) INR (BEAKER) (test 1.04 See_Comment [Automat ed message] code = 370) The system CHARMS PPEC generated this result transmitted ref erence range: <=5.90. The reference range was not used to int erpret this result as normal/abnormal . RECOMMENDED COUMADIN/WARFARIN INR THERAPY RANGESSTANDARD DOSE: 2.0 - 3.0 Includes: PROPHYLAXIS for venous thrombosis, systemic embolization; TREATMENT for venous thrombosis and/or pulmonary embolus.HIGH RISK: Target INR is 2.5-3.5 for patients with mechanical heart valves.POCT-GLUCOSE [id number] 22:01:13 Test Item Value Reference Range Interpretation Comments POC-GLUCOSE METER 219 mg/dL 70-110 H : TESTED A T [facility] 6720 (CloudSlides) (test code = [facility], 153) 66366: Railroad Detective/Techni dakota ID = [id number] for FABRIZIO JOYCE POCT-GLUCOSE [id number] 17:24:51 Test Item Value Reference Range Interpretation Comments POC-GLUCOSE METER 177 mg/dL 70-110 H : TESTED A T [facility] 6720 (BECloudSlides) (test code = [facility], 1538) 98283: Railroad Detective/Techni dakota ID = [id number] for Laura Ch [id number] 14:29:25 Test Item Value Reference Range Interpretation Comments RPR SCREEN (AKER) (test code = Nonreactive Nonreactive 420) RHEUMATOID FACTOR [id number] 14:27:52 Test Item Value Reference Range Interpretation Comments RHEUMATOID FACTOR TITER (BEAKER) (test :8 Negative code = 2285) RHEUMATOID FACTOR AB, REFLEX TO [id number] 14:26:49 Test Item Value Reference Range Interpretation Comments RHEUMATOID FACTOR (BEAKER) (test Positive Negative code = 573) POCT-GLUCOSE [id number] 13:43:32 Test Item Value Reference Range Interpretation Comments POC-GLUCOSE METER 163 mg/dL 70-110 H : TESTED A T [facility] 6720 (BEAKER) (test code = [facility], 1538) 57779: Railroad Detective/Techni dakota ID = [id number] for Laura Ch RETICULOCYTE [id number] 09:04:11 Test Item Value Reference Range Interpretation Comments RETICULOCYTE COUNT PCT (BEAKER) (test 0.4 % 0.5-1.8 L code = 575) Railroad Detective ID - 6000POCT-GLUCOSE [id number] 08:53:33 Test Item Value Reference Range Interpretation Comments POC-GLUCOSE METER 117 mg/dL 70-110 H : TESTED A T [facility] 6720 (BEAKER) (test code = [place]NA [place], 1538) 21576: Railroad Detective/Techni dakota ID = [id number] for José Miguel Elliott [id number] 08:02:13 Test Item Value Reference Range Interpretation Comments FERRITIN (BEAKER) (test code = 64062.20 ng/mL 5.00-275.00 H 361) Railroad Detective ID - ADMINOperator ID - ADMINCOMPLEMENT COMPONENT [id number] 06:48:01 Test Item Value Reference Range Interpretation Comments C4 COMPLEMENT (BEAKER) (test code = < mg/dL 15-57 L 394) Railroad Detective ID - BSHIV-1 ANTIGEN WITH HIV-1/2 [id number] 06:38:19 Test Item Value Reference Range Interpretation Comments HIV-1 ANTIGEN WITH HIV 1\\T\\2 Nonreactive Nonreactive ANTIBODY (2) (BEAKER) (test code = 2586) Railroad Detective ID - BSCOMPLEMENT COMPONENT [id number] 06:32:35 Test Item Value Reference Range Interpretation Comments C3 COMPLEMENT (BEAKER) (test code = 13 mg/dL 82-193 L 393) Railroad Detective ID - BSCOMPREHENSIVE METABOLIC [id number] 06:30:18 Test Item Value Reference Range Interpretation [...] S NOT APPLICABLE FOR DIALYSIS PATIEN TS. Railroad Detective ID - [id number] 06:30:18 Test Item Value Reference Range Interpretation Comments MAGNESIUM (BEAKER) (test code = 1.5 mg/dL 1.6-2.6 L 627) Railroad Detective ID - [id number]/[id number] 06:13:21 Test Item Value Reference Range Interpretation [...] 2.5-3.5 for patients with mechanical heart valves.PROTHROMBIN TIME/[id number] 06:12:36 Test Item Value Reference Range Interpretation Comments PROTIME (BEAKER) 13.8 seconds 11.9-14.2 (test code = 759) INR (BEAKER) (test 1.08 See_Comment [Automat ed message] code = 370) The system CHARMS PPEC generated this result transmitted ref erence range: [...] WBC 0-0 (test code = 413) BLOOD [id number] 05:00:52 Test Item Value Reference Range Interpretation Comments CULTURE (BEAKER) (test No growth in 5 days code = 1095) BLOOD [id number] 03:00:57 Test Item Value Reference Range Interpretation Comments CULTURE (BEAKER) (test No growth in 5 days code = 1095) The specimen volume collected for this blood culture was below the optimum (10 mL per bottle or 20 mL total). Use of lower volumes may adversely affect recovery and/or detection times of some organisms.POCT-GLUCOSE [id number] 21:20:13 Test Item Value Reference Range Interpretation Comments POC-GLUCOSE METER 132 mg/dL 70-110 H : TESTED A T [facility] 6720 ([facility]) (test code = [facility], 1538) 43453: Railroad Detective/Techni dakota ID = [id number] for SA NDERS, AXEL POCT-GLUCOSE [id number] 17:39:12 Test Item Value Reference Range Interpretation Comments POC-GLUCOSE METER 137 mg/dL 70-110 H : TESTED A T [facility] 6720 ([facility]) (test code = [facility], 1538) 99085: Railroad Detective/Techni dakota ID = [id number] for Nury Link PERIPHERAL BLOOD SMEAR - PATHOLOGIST [id number] 16:27:42 Test Item Value Reference Range Interpretation Comments PERIPHERAL SMR REVIEW Microcytic hypochromic ([facility]) (test code = anemia with mild 2640) anisopoikilocytosis. Leukopenia with neutropenia and left shifted granulocytic elements. Rare atypical lymphocytes. Decreased platelets; no significant platelet clumping/satellitism identified. [id number] Brea Morales ([facility]) (test code = Xavier Gallegos 4659) POCT-GLUCOSE [id number] 12:50:21 Test Item Value Reference Range Interpretation Comments POC-GLUCOSE METER 148 mg/dL 70-110 H : TESTED A T [facility] 6720 ([facility]) (test code = [facility], 1538) 58612: Railroad Detective/Techni dakota ID = [id number] for Maria Del Carmen Linka MISCELLANEOUS LAB [id number] 12:30:57 Test Item Value Reference Range Interpretation Comments SCAN RESULT (test code = see scanned results [id number]) see scanned [id number] 11:53:39 Test Item Value Reference Range Interpretation Comments LIPASE ([facility]) (test code = 749) 969 U/L 8-78 H Railroad Detective ID - BSANA TITER AND [id number] 10:59:38 Test Item Value Reference Range Interpretation [...] 1+ few (test code = 768) POCT-GLUCOSE [id number] 08:23:03 Test Item Value Reference Range Interpretation Comments POC-GLUCOSE METER 97 mg/dL 70-110 : [facility] (BEAKER) (test code = [place], 1538) 15301: Railroad Detective/Techni dakota ID = [id number] for Nury Uriostegui [id number] 04:36:10 Test Item Value Reference Range Interpretation Comments MAGNESIUM (BEAKER) (test code = 1.5 mg/dL 1.6-2.6 L 627) Railroad Detective ID - BSC-REACTIVE [id number] 04:36:10 Test Item Value Reference Range Interpretation Comments C-REACTIVE PROTEIN (BEAKER) (test 0.77 mg/dL 0.00-0.50 H code = 676) Railroad Detective ID - BSCOMPREHENSIVE METABOLIC [id number] 04:36:09 Test Item Value Reference Range Interpretation [...] S NOT APPLICABLE FOR DIALYSIS PATIEN TS. Railroad Detective ID - [id number]/[id number] 04:12:17 Test Item Value Reference Range Interpretation [...] 2.5-3.5 for patients with mechanical heart valves.PROTHROMBIN TIME/[id number] 04:11:15 Test Item Value Reference Range Interpretation Comments PROTIME (BEAKER) 13.8 seconds 11.9-14.2 (test code = 759) INR (BEAKER) (test 1.08 See_Comment [Automat ed message] code = 370) The system CHARMS PPEC generated this result transmitted ref erence range: [...] WBC 0-0 (test code = 413) POCT-GLUCOSE [id number] 21:48:31 Test Item Value Reference Range Interpretation Comments POC-GLUCOSE METER 136 mg/dL 70-110 H : TESTED A T [facility] 6720 (BEAKER) (test code = [place], 1538) 62032: Railroad Detective/Techni dakota ID = [id number] for SA NDERS, AXEL SARS-COV2/RT-PCR ([facility])2021-08-29 20:38:24 Test Item Value Reference Range Interpretation Comments SARS-COV2/RT-PCR (test code = Negative Negative 1846996) Negative result for this test determines that [...] the Act.Testing was performed using t farida [employer] SARS-CoV-2 assay.Fact Sheet for Healthcare Providers:https://www.[employer].mcqueen/pedro/RT SARS-CoV-2 HCP Fact Sheet 51- 416454.pdfFact Sheet for Healthcare Patients:https://www.molecular.mcqueen/pedro/RT SARS-CoV-2 Patient Fact Sheet EN 51-516989B6.pdfPOCT-GLUCOSE [id number] 17:55:13 Test Item Value Reference Range Interpretation Comments POC-GLUCOSE METER 109 mg/dL 70-110 : TESTED A T [facility] 6720 (GENEVA) (test code = [place], 1538) 19688: Railroad Detective/Techni dakota ID = [id number] for Toy Lopez [id number] 14:07:15 Test Item Value Reference Range Interpretation Comments LIPASE (BEAKER) (test code = 749) > U/L 8-78 H Railroad Detective ID - FATMATA [id number] 14:02:51 Test Item Value Reference Range Interpretation Comments FIBRINOGEN LEVEL (BEAKER) (test 189 mg/dl 225-434 L code = 658) [id number] 13:33:46 Test Item Value Reference Range Interpretation Comments PHOSPHORUS (BEAKER) 2.1 mg/dL 2.3-4.7 L Specimen slightly (test code = 604) hemolyzed Railroad Detective ID - FATMATA WPOCT-GLUCOSE [id number] 11:56:19 Test Item Value Reference Range Interpretation Comments POC-GLUCOSE METER 109 mg/dL 70-110 : TESTED A T [facility] (BEAKER) (test code = [place], 1538) 53258: Railroad Detective/Techni dakota ID = [id number] for Toy Lopez [id number] 10:37:25 Test Item Value Reference Range Interpretation Comments MAGNESIUM (BEAKER) 1.4 mg/dL 1.6-2.6 L Specimen slightly (test code = 627) hemolyzed Railroad Detective ID - BSCOMPREHENSIVE METABOLIC [id number] 10:37:25 Test Item Value Reference Range Interpretation [...] S NOT APPLICABLE FOR DIALYSIS PATIEN TS. Railroad Detective ID - BSPOCT-GLUCOSE [id number] 08:55:18 Test Item Value Reference Range Interpretation Comments POC-GLUCOSE METER 101 mg/dL 70-110 : [facility] (BE[facility]ER[facility] (test code = [place], 1538) 07259: Railroad Detective/Techni dakota ID = [id number] for Toy Lopez PROTHROMBIN TIME/[id number] 05:16:55 Test Item Value Reference Range Interpretation Comments PROTIME (BEAKER) 16.3 seconds 11.9-14.2 H (test code = 759) INR (BEAKER) (test 1.33 See_Comment [Automat ed message] code = 370) The system CHARMS PPEC generated this result transmitted ref erence range: [...] WBC 0-0 (test code = 413) POCT-GLUCOSE [id number] 04:41:33 Test Item Value Reference Range Interpretation Comments POC-GLUCOSE METER 122 mg/dL 70-110 H : TESTED A T [facility] 6720 (BEAKER) (test code = [facility] [place], 1538) 94052: Railroad Detective/Techni dakota ID = [id number] for Rachele Singh HEPATITIS B SURFACE [id number] 19:07:46 Test Item Value Reference Range Interpretation Comments HEPATITIS B SURFACE ANTIGEN (2) Nonreactive Nonreactive (BEAKER) (test code = 2585) Specimen is considered negative for HBsAg.HEPATITIS C [id number] 18:37:24 Test Item Value Reference Range Interpretation Comments HEPATITIS C ANTIBODY (BEAKER) Nonreactive Nonreactive (test code = 367) Railroad Detective ID - BSHEPATITIS A ANTIBODY, [id number] 18:29:47 Test Item Value Reference Range Interpretation Comments HEPATITIS A IGG ANTIBODY (BEAKER) Reactive Nonreactive A (test code = 2797) Railroad Detective ID - BSHEPATITIS B SURFACE [id number] 18:27:24 Test Item Value Reference Range Interpretation Comments HEPATITIS B SURFACE ANTIBODY 328.2 mIU/mL <8.0 H (BEAKER) (test code = 647) Railroad Detective ID - BSHEPATITIS B CORE ANTIBODY, [id number] 18:27:24 Test Item Value Reference Range Interpretation Comments HEPATITIS B CORE TOTAL ANTIBODY Nonreactive Nonreactive (BEAKER) (test code = 497) Railroad Detective ID - BSRapid drug screen, [id number] 18:17:41 Test Item Value Reference Range Interpretation Comments Barbiturate Screen Negative Negative (test code = 78389-9) Benzodiazepine Screen Negative Negative (test code = 94455-7) Cocaine (Metab.) Negative Negative Screen (test code = 3397-7) Methadone Screen (test Negative Negative code = 60364-8) Opiate Screen (test Negative Negative code = 06440-4) Cannabinoid Screen Negative Negative (test code = 91877-9) Amph/Methamph Screen Negative Negative (test code = 90240-3) Phencyclidine Screen Negative Negative (test code = 02285-3) pH, UA (test code = 7.5 5.0-8.0 5803-2) IDALIA (test code = IDALIA) DRUG CUTOFF CONC.Cocaine 300 ng/mL Cannabinoid 50 ng/mLBenzodiazepine 200 ng/mLBarbiturate 200 ng/mLPhencyclidine 25 ng/mLOpiate 300 ng/mLMethadone 300 ng/mLAmphetamine/ 1000 ng/mL Methamphetamine This assay provides an unconfirmed qualitative test result for the clinical management of patients in emergency situations. Chain of custody not maintained. Some kabm-gbp-bzeymoa medications, as well as adulterants, may cause inaccurate results. Clinical correlation should be applied. A more comprehensive drug screen or confirmation of a detected drug may be performed upon request.Railroad Detective ID - BS Lab Interpretation Normal (test code = 07045-8) [facility], [id number] 18:17:41 Test Item Value Reference Range Interpretation Comments Barbiturate Screen Negative Negative (test code = 16601-7) Benzodiazepine Screen Negative Negative (test code = 01784-8) Cocaine (Metab.) Negative Negative Screen (test code = 3397-7) Methadone Screen (test Negative Negative code = 03307-1) Opiate Screen (test Negative Negative code = 29290-0) Cannabinoid Screen Negative Negative (test code = 25530-3) Amph/Methamph Screen Negative Negative (test code = 54189-9) Phencyclidine Screen Negative Negative (test code = 32150-3) pH, UA (test code = 7.5 5.0-8.0 5803-2) IDALIA (test code = IDALIA) DRUG CUTOFF CONC.Cocaine 300 ng/mL Cannabinoid 50 ng/mLBenzodiazepine 200 ng/mLBarbiturate 200 ng/mLPhencyclidine 25 ng/mLOpiate 300 ng/mLMethadone 300 ng/mLAmphetamine/ 1000 ng/mL Methamphetamine This assay provides an unconfirmed qualitative test result for the clinical management of patients in emergency situations. Chain of custody not maintained. Some kruh-gec-lglkdjt medications, as well as adulterants, may cause inaccurate results. Clinical correlation should be applied. A more comprehensive drug screen or confirmation of a detected drug may be performed upon request.Railroad Detective ID - BS Lab Interpretation Normal (test code = 76518-7) [facility], [id number] 18:17:41 Test Item Value Reference Range Interpretation Comments Barbiturate Screen Negative Negative (test code = 55694-2) Benzodiazepine Screen Negative Negative (test code = 75996-4) Cocaine (Metab.) Negative Negative Screen (test code = 3397-7) Methadone Screen (test Negative Negative code = 53523-9) Opiate Screen (test Negative Negative code = 35050-5) Cannabinoid Screen Negative Negative (test code = 75398-9) Amph/Methamph Screen Negative Negative (test code = 35557-8) Phencyclidine Screen Negative Negative (test code = 81242-8) pH, UA (test code = 7.5 5.0-8.0 5803-2) IDALIA (test code = IDALIA) DRUG CUTOFF CONC.Cocaine 300 ng/mL Cannabinoid 50 ng/mLBenzodiazepine 200 ng/mLBarbiturate 200 ng/mLPhencyclidine 25 ng/mLOpiate 300 ng/mLMethadone 300 ng/mLAmphetamine/ 1000 ng/mL Methamphetamine This assay provides an unconfirmed qualitative test result for the clinical management of patients in emergency situations. Chain of custody not maintained. Some eimi-wsy-gpegkod medications, as well as adulterants, may cause inaccurate results. Clinical correlation should be applied. A more comprehensive drug screen or confirmation of a detected drug may be performed upon request.Railroad Detective ID - BS Lab Interpretation Normal (test code = 59015-2) [facility], [id number] 18:17:41 Test Item Value Reference Range Interpretation Comments Barbiturate Screen Negative Negative (test code = 38427-5) Benzodiazepine Screen Negative Negative (test code = 78355-0) Cocaine (Metab.) Negative Negative Screen (test code = 3397-7) Methadone Screen (test Negative Negative code = 23528-7) Opiate Screen (test Negative Negative code = 22084-1) Cannabinoid Screen Negative Negative (test code = 17805-5) Amph/Methamph Screen Negative Negative (test code = 65980-7) Phencyclidine Screen Negative Negative (test code = 18800-1) pH, UA (test code = 7.5 5.0-8.0 5803-2) IDALIA (test code = IDALIA) DRUG CUTOFF CONC.Cocaine 300 ng/mL Cannabinoid 50 ng/mLBenzodiazepine 200 ng/mLBarbiturate 200 ng/mLPhencyclidine 25 ng/mLOpiate 300 ng/mLMethadone 300 ng/mLAmphetamine/ 1000 ng/mL Methamphetamine This assay provides an unconfirmed qualitative test result for the clinical management of patients in emergency situations. Chain of custody not maintained. Some dzvr-hsv-dnbgqko medications, as well as adulterants, may cause inaccurate results. Clinical correlation should be applied. A more comprehensive drug screen or confirmation of a detected drug may be performed upon request.Railroad Detective ID - BS Lab Interpretation Normal (test code = 38148-9) [facility], [id number] 18:17:41 Test Item Value Reference Range Interpretation [...] situations. Chain of custody not maintained. Some hxcq-lqs-ydctsvf medications, as well as adulterants, may cause inaccurate results. Clinical correlation should be applied. A more comprehensive drug screen or confirmation of a detected drug may be performed upon request.Railroad Detective ID - BSIMMUNOGLOBULIN G (IGG)2021-08-28 18:13:19 Test Item Value Reference Range Interpretation Comments IMMUNOGLOBULIN G (IGG) 1400 mg/dL See_Comment [Aut omated message] (BEAKER) (test code = The sy stem which 427) generated this result transmit hernandez reference range : 540-1,822. The reference range was not used to interpret this result as normal/abnormal . Railroad Detective ID - BSIRON, TIBC, % SAT. (WITHOUT FERRITIN)2021-08-28 18:13:19 Test Item Value Reference Range Interpretation Comments IRON (BEAKER) (test code = 547) 139.0 ug/dL 40.0-160.0 TOTAL IRON BINDING CAPACITY 178 ug/dL 250-450 L (BEAKER) (test code = 769) IRON % SATURATION (2) (BEAKER) 78 % 20-55 H (test code = 2590) Railroad Detective ID - [id number] 16:36:26 Test Item Value Reference Range Interpretation Comments FERRITIN (BEAKER) (test code = 73486.56 ng/mL 5.00-275.00 H 361) Railroad Detective ID - BSOperator ID - [id number] 14:45:11 Test Item Value Reference Range Interpretation Comments ALPHA-1 ANTITRYPSIN 130.90 mg/dL 90.00-200.00 Specimen slightly (BEAKER) (test code = hemoly zed 502) Railroad Detective ID - DBPOCT-GLUCOSE [id number] 14:23:23 Test Item Value Reference Range Interpretation Comments POC-GLUCOSE METER 97 mg/dL 70-110 : TESTED A T [facility] 6720 (BEAKER) (test code = [place] [facility], 1538) [address]: Railroad Detective/Techni dakota ID = [id number] for José Miguel Larkin POCT-GLUCOSE [id number] 08:20:47 Test Item Value Reference Range Interpretation Comments POC-GLUCOSE METER 85 mg/dL 70-110 : TESTED A T [facility] 6720 (BEAKER) (test code = [place] [facility], 1538) 26586: Railroad Detective/Techni dakota ID = [id number] for José Miguel Larkin COMPREHENSIVE METABOLIC [id number] 06:21:17 Test Item Value Reference Range Interpretation [...] S NOT APPLICABLE FOR DIALYSIS PATIEN TS. Railroad Detective ID - [id number] 06:03:12 Test Item Value Reference Range Interpretation Comments MAGNESIUM (BEAKER) (test code = 1.8 mg/dL 1.6-2.6 627) Railroad Detective ID - DBCBC (HEMOGRAM ONLY)2021-08-28 05:04:44 Test [...] WBC 0-0 (test code = 413) POCT-GLUCOSE [id number] 22:30:31 Test Item Value Reference Range Interpretation Comments POC-GLUCOSE METER 99 mg/dL 70-110 : Notified RN/: TESTED (BEAKER) (test code = AT [facility] [address]) [place], [address]: Railroad Detective/Techni dakota ID = [id number] for Peg Anders'jordi MR, ABDOMEN, [id number] 18:44:00Unlisted Reason for Exam - Click Yes and Enter Reason Below->No [facility] : 2000 Sex: [...] MDReport Verified Date/Time: 08/27/2021 18:44:20 Reading Location: [facility] C013Y CT Body Reading Room MR, ABDOMEN, [id number] 18:44:00Pancreas protocol Unlisted Reason for Exam - Click Yes and Enter Reason Below->No Does the patient have an implanted electronic device?->No [facility] 2000 Sex: MFINAL [...] MDReport Verified Date/Time: 08/27/2021 18:44:20 Reading Location: [address] Body Reading [facility] [id number] 06:35:42 Test Item Value Reference Range Interpretation [...] S NOT APPLICABLE FOR DIALYSIS PATIEN TS. Railroad Detective ID - MARIBEL [id number] 06:34:17 Test Item Value Reference Range Interpretation Comments MAGNESIUM (BEAKER) (test code = 2.1 mg/dL 1.6-2.6 627) Railroad Detective ID - MARIBEL LCBC (HEMOGRAM ONLY)2021-08-27 06:06:14 [...] WBC 0-0 (BEAKER) (test code = 413) [id number] 12:41:39 Test Item Value Reference Range Interpretation Comments LIPASE (BEAKER) (test code = 749) 1190 U/L 8-78 H Railroad Detective ID - ALVINA MURINALYSIS W/ REFLEX URINE [id number] 07:27:57 Test Item Value Reference Range Interpretation [...] = 1521) SOURCE(BEAKER) (test code = 2795) Railroad Detective ID - [auto]Railroad Detective ID - tech(CELLAVISION MANUAL DIFF)2021-08-26 03:09:42 Test [...] CONCENTRATION Decreased (CELLAVISION)(BEAKER) (test code = 3438) Railroad Detective ID - [id number] ID - Kyree comments: Slide comments:CBC W/PLT COUNT & AUTO [id number] 03:09:41 Test Item Value Reference Range Interpretation [...] (BEAKER) (test code = 413) COMPREHENSIVE METABOLIC [id number] 02:27:26 Test Item Value Reference Range Interpretation [...] S NOT APPLICABLE FOR DIALYSIS PATIEN TS. Railroad Detective ID - ALVINA [id number] 02:26:17 Test Item Value Reference Range Interpretation Comments TRIGLYCERIDES (BEAKER) (test code = 175 mg/dL 540) TRIGLYCERIDE REFERENCE RANGELow Risk <150Borderline Risk 150-199High Risk 200-499Very High Risk >=500Operator ID - ALVINA [id number] 02:26:16 Test Item Value Reference Range Interpretation Comments MAGNESIUM (BEAKER) (test code = 2.2 mg/dL 1.6-2.6 627) Railroad Detective ID - ALVINA MPROTHROMBIN TIME/[id number] 02:13:14 Test Item Value Reference Range Interpretation Comments PROTIME (GENEVA) 26.7 seconds 11.9-14.2 H (test code = 759) INR (BEAKER) (test 2.49 See_Comment [Automat ed message] code = 370) The system CHARMS PPEC generated this result transmitted ref erence range: <=5.90. The reference range was not used to int erpret this result as normal/abnormal . RECOMMENDED COUMADIN/WARFARIN INR THERAPY RANGESSTANDARD DOSE: 2.0 - 3.0 Includes: PROPHYLAXIS for venous thrombosis, systemic embolization; TREATMENT for venous thrombosis and/or pulmonary embolus.HIGH RISK: Target INR is 2.5-3.5 for patients with mechanical heart valves.
[2022-05-25] MEDS ORDERED: NA CHLORIDE 0.9% 1,000 ML ONE (20:32)
[2022-05-25 20:57] LABS: Absolute Lymphocytes (CBC) 1.2 K/uL (0.7-4.9); Lymphocytes % 13.1 % (15.3-44.8); MCV 69.4 fL (80-100); RBC Red Blood Cell Count 5.32 M/uL (4.33-5.43)
[2022-05-25] MEDS ORDERED: ONDANSETRON 4 MG/2 ML VIAL ONE (20:57)
[2022-05-25] MEDS ORDERED: MORPHINE 4 MG/ML SYR ONE ×2 (20:57→22:55)
[2022-05-25 20:58] LABS: White Blood Cell Scan OK (OK)
[2022-05-25 20:59] LABS: Blood Morphology Comment NOTED (NOT SEEN); Platelet Estimate INCR
[2022-05-25 21:11] LABS: Albumin 3.1 g/dL (3.4-5.0); Potassium 3.2 mmol/L (3.5-5.1)
[2022-05-25 21:13] LABS: Bilirubin Total 0.5 mg/dL (0.2-1.0); Protein, Total 8.3 g/dL (6.4-8.2)
--- NOTE | 2022-05-25 21:28 | RAD REPORT ---
EXAM DESCRIPTION: CT - Abdomen Pelvis W Contrast - 05/25/2022 9:19 pm CLINICAL HISTORY: upper abd pain COMPARISON: Abdomen Pelvis W Contrast dated 03/15/2022 TECHNIQUE: Biphasic, helical CT imaging of the abdomen and pelvis was performed following 100 ml non -ionic IV contrast. Oral contrast: No. All CT scans are performed using dose optimization technique as appropriate and may include automated exposure control or mA/KV adjustment according to patient size. FINDINGS: No suspicious findings in the lung bases. Liver and spleen show no suspicious findings. Numerous granulomatous calcifications are present in th e spleen. No gallbladder or biliary tree abnormality. No solid or cystic mass of the pancreas or peripancreatic tissues seen. There is stranding and edema in the peripancreatic fat adjacent to the tail and distal aspect of the pancreatic body. This continu es minimally along the anterior pararenal fascia the left. Symmetric renal function is seen with no hydronephrosis or suspicious renal mass. No pyelonephritis o r acute parenchymal process. No bladder abnormalities. No adrenal abnormalities. No dilated bowel loops or bowel wall thickening. No free air, free fluid or inflammatory stranding. No hernia, mass or bulky lymphadenopathy. No suspicious bony findings. IMPRESSION: Mild acute pancreatitis involving the tail and distal body. No necrosis, pseudocyst, mas s or other complicating factor.
[2022-05-25] MEDS ORDERED: POTASSIUM CL SA 10 MEQ TAB PO ONE ×2 (21:38→21:39)
[2022-05-25 22:44] LABS: SARS-CoV-2 Antigen Rapid Res Negative (Negative)
--- NOTE | 2022-05-25 23:33 | EDPHYS ---
[facility] Name[facility] Sal [facility] Age: 22 yrs Sex: Male : 2000 Arrival Date: 05/25/2022 Time: 19:58 Bed 4 Private MD: ED Physician Sarah Nunez HPI: 05/25 22:52 This 22 yrs old Male presents to ER via EMS with complaints of Abdominal Pain. kb 22:52 The patient presents with abdominal pain in the upper abdomen. Onset: The kb symptoms/episode began/occurred 3 day(s) ago. The symptoms radiate to left back. Associated signs and symptoms: Pertinent positives: nausea and vomiting, Pertinent negatives: diarrhea, fever. The symptoms are described as constant. Modifying factors: The symptoms are alleviated by nothing, the symptoms are aggravated by nothing. Severity of pain: At its worst the pain was moderate in the emergency department the pain is unchanged. The patient has experienced similar episodes in the past. The patient has not recently seen a physician. Pt reports upper abd pain that started 3 days ago with nausea and vomiting. 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 Pt sees Dr Ramsey at [facility] and has had multiple stents and surgeries for this in the past. . Historical: - Allergies: 20:20 No Known Allergies; kb3 - Home Meds: 20:20 carvedilol 25 mg Oral tab [Active]; Creon 24,000-76,000 -120,000 unit Oral cpDR 3 caps kb3 3 times per day [Active]; gabapentin 300 mg Oral tab three times a day [Active]; metformin 500 mg Oral tab 1 tab 2 times per day [Active]; metoprolol tartrate 25 mg Oral tab 1 tab 2 times per day [Active]; prednisone 50 mg Oral tab once daily [Active]; Risperdal 0.5 mg Oral tab 1 tabs once daily [Active]; sertraline 50 mg Oral tab 1 tab once daily [Active]; trazodone 50 mg Oral tab 2 tabs once daily [Active]; Zoloft 25 mg Oral tab 1 tab once daily [Active]; Zofran 4 mg Oral tab 1 tab 4 times per day [Active]; - PMHx: 20:20 borderline personlity disorder; Cerebrovascular accident; Hypertensive disorder; kb3 necrotizing pancreatitis; PTSD; - PSHx: 20:20 Appendectomy; Hip surgery; Multiple abdominal surgeries; kb3 - Immunization history:: Adult Immunizations up to date, Client reports having NOT received the Covid vaccine. Last tetanus immunization: up to date. - Social history:: Smoking status: Reported history of juuling and/or vaping. ROS: 22:50 Constitutional: Negative for fever, chills, and weight loss. kb 22:50 Abdomen/GI: Positive for abdominal pain, nausea and vomiting, Negative for diarrhea, constipation. 22:50 All other systems are negative. Exam: 22:50 Constitutional: This is a well developed, well nourished patient who is awake, alert, kb and in no acute distress. Head/Face: Normocephalic, atraumatic. ENT: Moist Mucous membranes Cardiovascular: Regular rate and rhythm with a normal S1 and S2. No gallops, murmurs, or rubs. No pulse deficits. Respiratory: Respirations even and unlabored. No increased work of breathing. Talking in full sentences Skin: Warm, dry with normal turgor. Normal color. MS/ Extremity: Pulses equal, no cyanosis. Neurovascular intact. Full, normal range of motion. Neuro: Awake and alert, GCS 15, oriented to person, place, time, and situation. Moves all extremities. Normal gait. Psych: Awake, alert, with orientation to person, place and time. Behavior, mood, and affect are within normal limits. 22:50 Abdomen/GI: Inspection: abdomen appears normal, Bowel sounds: normal, Palpation: soft, in all quadrants, moderate abdominal tenderness, in the left upper quadrant. Vital Signs: 20:17 BP 162 / 120; Pulse 123; Resp 20; Temp 99.1; Pulse Ox 99% ; Weight 99.79 kg; Height 5 kb3 ft. 8 in. (172.72 cm); Pain 10/10; 21:37 BP 153 / 108; Pulse 99; Resp 20 S; Pulse Ox 100% on R/A; aa9 22:45 BP 156 / 93; Pulse 95; Resp 19 S; Pulse Ox 99% on R/A; aa9 07 00:19 BP 160 / 105; Pulse 93; Resp 20 S; Pulse Ox 98% on R/A; aa9 01:18 BP 153 / 103; Pulse 98; Resp 18 S; Pulse Ox 99% ; aa9 05/25 20:17 Body Mass Index 33.45 (99.79 kg, 172.72 cm) kb3 MDM: 05/25 20:20 Patient medically screened. kb 22:50 Differential diagnosis: gastritis, gastroesophageal reflux disease, pancreatitis. Data kb reviewed: vital signs, nurses notes. Data interpreted: Pulse oximetry: on room air is 100 %. Interpretation: normal. Counseling: I had a detailed discussion with the patient and/or guardian regarding: the historical points, exam findings, and any diagnostic results supporting the discharge/admit diagnosis, lab results, radiology results, the need to transfer to another facility, [facility] does not immediately have the required specialist. 23:30 ED course: Consideration of hospitalization: Considered hospitalization of the patient kb but based on patient's history and lack of GI services at this facility patient will be transferred. Management of the patient was discussed with the following: Dr Decker Review of external records: Physician record, labs and CT scan results reviewed from previous ER visit. History obtained from: Patient; Care significantly affected by the following chronic conditions: Necrotizing pancreatitis . 05/25 20:20 Order name: CBC with Diff; Complete Time: 21:00 kb 05/25 20:20 Order name: CMP; Complete Time: 21:20 kb 05/25 20:20 Order name: Lipase; Complete Time: 21:20 kb 05/25 20:20 Order name: CT Abd/Pelvis - IV Contrast Only; Complete Time: 21:29 kb 05/25 20:59 Order name: CBC Smear Scan; Complete Time: 21:00 EDMS 05/25 22:02 Order name: SARS RAPID; Complete Time: 22:45 kb 05/25 20:20 Order name: IV Saline Lock; Complete Time: 20:49 kb 05/25 20:20 Order name: Labs collected and sent; Complete Time: 20:49 kb 05/25 21:30 Order name: Vital Signs; Complete Time: 21:40 kb Administered Medications: 20:49 Drug: NS 0.9% 1000 ml Route: IV; Rate: 1 bolus; Site: right forearm; aa9 23:11 Follow up: Response: No adverse reaction; IV Status: Completed infusion; IV Intake: aa9 1000ml 21:01 Drug: morphine 4 mg Route: IVP; Infused Over: 4 mins; Site: right forearm; aa9 21:36 Follow up: Response: No adverse reaction aa9 21:01 Drug: Zofran (Ondansetron) 4 mg Route: IVP; Site: right forearm; aa9 21:37 Follow up: Response: No adverse reaction aa9 21:39 Drug: Potassium Chloride 40 mEq Route: PO; kd3 23:11 Follow up: Response: No adverse reaction aa9 22:56 Drug: morphine 4 mg Route: IVP; Infused Over: 4 mins; Site: right forearm; aa9 05/26 01:17 Follow up: Response: No adverse reaction aa9 01:17 Drug: morphine 4 mg Route: IVP; Infused Over: 4 mins; Site: right forearm; aa9 Disposition Summary: 05/25/22 23:32 Transfer Ordered Transfer Location: [facility] kb Reason: Higher level of care kb Condition: Stable kb Problem: an acute exacerbation kb Symptoms: are unchanged kb Accepting Physician: Brianne(05/26/22 01:19) aa9 Diagnosis - Acute Pancreatitis kb Forms: - Medication Reconciliation Form kb - SBAR form kb Signatures: Dispatcher [employer] EDMS Heather Angeles, [employer]-Marline Watts RN RN kd3 Sarah Nunez MD MD sd2 Carmela Vallejo, ROSA RN aa9 Shannan Stanley, RN RN kb3 Corrections: (The following items were deleted from the chart) 05/25 22:57 22:52 Pt reports upper abd pain that started 3 days ago with nausea and vomiting. 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 . kb 05/26 01:19 05/25 23:32 Brianne kb aa9
--- NOTE | 2022-05-25 23:33 | ER ---
Nurse's Notes [facility] Name: Sal Gomez Age: 22 yrs Sex: Male : 2000 Arrival Date: 05/25/2022 Time: 19:58 Bed 4 Private MD: Diagnosis: Acute Pancreatitis Presentation: 05/25 20:17 Chief complaint: Patient states: upper abdominal pain and nausea/vomiting x3 days with kb3 history of pancreatitis. Coronavirus screen: Vaccine status: Patient reports receiving the 2nd dose of the covid vaccine. Ebola Screen: Patient negative for fever greater than or equal to 101.5 degrees Fahrenheit, and additional compatible Ebola Virus Disease symptoms Patient denies exposure to infectious person. Patient denies travel to an Ebola-affected area in the 21 days before illness onset. Initial Sepsis Screen: Does the patient meet any 2 criteria? No. Patient's initial sepsis screen is negative. Does the patient have a suspected source of infection? No. Patient's initial sepsis screen is negative. Risk Assessment: Do you want to hurt yourself or someone else?. Onset of symptoms was May 22, 2022. 20:17 Method Of Arrival: EMS: [facility] kb3 20:17 Acuity: DANICA 3 kb3 Triage Assessment: 20:20 General: Appears in no apparent distress. uncomfortable, Behavior is calm, cooperative. kb3 Pain: Complains of pain in epigastric area and left upper quadrant Pain does not radiate. Pain currently is 10 out of 10 on a pain scale. Quality of pain is described as sharp. GI: Reports upper abdominal pain, nausea, vomiting. Historical: - Allergies: 20:20 No Known Allergies; kb3 - Home Meds: 20:20 carvedilol 25 mg Oral tab [Active]; Creon 24,000-76,000 -120,000 unit Oral cpDR 3 caps kb3 3 times per day [Active]; gabapentin 300 mg Oral tab three times a day [Active]; metformin 500 mg Oral tab 1 tab 2 times per day [Active]; metoprolol tartrate 25 mg Oral tab 1 tab 2 times per day [Active]; prednisone 50 mg Oral tab once daily [Active]; Risperdal 0.5 mg Oral tab 1 tabs once daily [Active]; sertraline 50 mg Oral tab 1 tab once daily [Active]; trazodone 50 mg Oral tab 2 tabs once daily [Active]; Zoloft 25 mg Oral tab 1 tab once daily [Active]; Zofran 4 mg Oral tab 1 tab 4 times per day [Active]; - PMHx: 20:20 borderline personlity disorder; Cerebrovascular accident; Hypertensive disorder; kb3 necrotizing pancreatitis; PTSD; - PSHx: 20:20 Appendectomy; Hip surgery; Multiple abdominal surgeries; kb3 - Immunization history:: Adult Immunizations up to date, Client reports having NOT received the Covid vaccine. Last tetanus immunization: up to date. - Social history:: Smoking status: Reported history of juuling and/or vaping. Screenin:51 Abuse screen: Denies threats or abuse. Denies injuries from another. Tuberculosis aa9 screening: No symptoms or risk factors identified. 21:35 Nutritional screening: Has had N/V for 3 or more days. aa9 05/26 01:19 [facility] ED Fall Risk Assessment (Adult) History of falling in the last 3 months, aa9 including since admission No falls in past 3 months (0 pts) Confusion or Disorientation No (0 pts) Intoxicated or Sedated No (0 pts) Impaired Gait No (0 pts) Mobility Assist Device Used No (0 pt) Altered Elimination No (0 pt) Score/Fall Risk Level 0 - 2 = Low Risk Oriented to surroundings, Maintained a safe environment. Assessment: 05/25 20:50 General: Appears uncomfortable, unkempt, Behavior is cooperative, anxious. Pain: aa9 Complains of pain in left upper quadrant Pain currently is 7 out of 10 on a pain scale. Quality of pain is described as stabbing, Noted to be grimacing, moaning, Also complains of nausea. Neuro: Level of Consciousness is awake, alert, obeys commands, Oriented to person, place, time, situation. Respiratory: Airway is patent Respiratory effort is even, unlabored. GI: Reports diarrhea, nausea, vomiting. : No signs and/or symptoms were reported regarding the genitourinary system. EENT: No signs and/or symptoms were reported regarding the EENT system. 20:50 Musculoskeletal: Swelling present in weston hands. aa9 22:00 Reassessment: Patient appears in no apparent distress at this time. Patient and/or aa9 family updated on plan of care and expected duration. Pain level reassessed. Patient is alert, oriented x 3, equal unlabored respirations, skin warm/dry/pink. 05/26 00:00 Reassessment: Patient appears in no apparent distress at this time. Patient and/or aa9 family updated on plan of care and expected duration. Pain level reassessed. Patient is alert, oriented x 3, equal unlabored respirations, skin warm/dry/pink. signed consent to be transferred. 00:26 Reassessment: Patient appears in no apparent distress at this time. report called to kevyn Wolff RN. 01:17 Reassessment: Patient appears in no apparent distress at this time. No changes from aa9 previously documented assessment. EMS at bedside, provided report to transporting EMT, pt understands need for transfer denies concerns. Vital Signs: 05/25 20:17 BP 162 / 120; Pulse 123; Resp 20; Temp 99.1; Pulse Ox 99% ; Weight 99.79 kg; Height 5 kb3 ft. 8 in. (172.72 cm); Pain 10/10; 21:37 BP 153 / 108; Pulse 99; Resp 20 S; Pulse Ox 100% on R/A; aa9 22:45 BP 156 / 93; Pulse 95; Resp 19 S; Pulse Ox 99% on R/A; aa9 05/26 00:19 BP 160 / 105; Pulse 93; Resp 20 S; Pulse Ox 98% on R/A; aa9 01:18 BP 153 / 103; Pulse 98; Resp 18 S; Pulse Ox 99% ; aa9 05/25 20:17 Body Mass Index 33.45 (99.79 kg, 172.72 cm) kb3 ED Course: 05/25 19:58 Patient arrived in ED. as 20:05 Heather Angeles FNP-C is PHCP. kb 20:05 Sarah Nunez MD is Attending Physician. kb 20:20 Triage completed. kb3 20:20 Arm band placed on right wrist. kb3 20:34 Carmela Vallejo, ROSA is Primary Nurse. aa9 20:45 Inserted saline lock: 20 gauge in right forearm, using aseptic technique. Blood aa9 collected. 20:49 CBC with Diff Sent. aa9 20:49 CMP Sent. aa9 20:49 Lipase Sent. aa9 20:51 Patient has correct armband on for positive identification. Bed in low position. Call aa9 light in reach. Side rails up X2. 21:21 CT Abd/Pelvis - IV Contrast Only In Process Unspecified. EDMS 22:07 SARS RAPID Sent. aa9 22:46 Initiated transfer to [facility], spoke with Marilynn. wm 05/26 00:02 Pt. accepted for transfer by Brianne Roldan \T\ [id number] 05-25-22 per Chaz Hammond. wm 01:18 No provider procedures requiring assistance completed. Patient transferred, IV remains aa9 in place. Administered Medications: 05/25 20:49 Drug: NS 0.9% 1000 ml Route: IV; Rate: 1 bolus; Site: right forearm; aa9 23:11 Follow up: Response: No adverse reaction; IV Status: Completed infusion; IV Intake: aa9 1000ml 21:01 Drug: morphine 4 mg Route: IVP; Infused Over: 4 mins; Site: right forearm; aa9 21:36 Follow up: Response: No adverse reaction aa9 21:01 Drug: Zofran (Ondansetron) 4 mg Route: IVP; Site: right forearm; aa9 21:37 Follow up: Response: No adverse reaction aa9 21:39 Drug: Potassium Chloride 40 mEq Route: PO; kd3 23:11 Follow up: Response: No adverse reaction aa9 22:56 Drug: morphine 4 mg Route: IVP; Infused Over: 4 mins; Site: right forearm; aa9 05/26 01:17 Follow up: Response: No adverse reaction aa9 01:17 Drug: morphine 4 mg Route: IVP; Infused Over: 4 mins; Site: right forearm; aa9 Medication: 01:18 VIS not applicable for this client. aa9 Intake: 05/25 23:11 IV: 1000ml; Total: 1000ml. aa9 Outcome: 23:32 ER care complete, transfer ordered by MD. worley 05/26 01:18 Transferred by ground EMS to [facility], Transfer form completed. aa9 Condition: stable Instructed on the need for transfer. 01:19 Patient left the ED. aa9 Signatures: Dispatcher [employer] EDMS Heather Angeles, SOLID DIE CUTTER-C SOLID DIE CUTTER-Lori Osman Wendy wm Doucette, Kyli, RN RN kd3 Carmela Vallejo RN RN aa9 Shannan Stanley RN RN kb3 Corrections: (The following items were deleted from the chart) 05/25 21:01 21:00 morphine 4 mg IVP in left forearm over 4 mins 21:35 20:51 Nutritional screening: No deficits noted. 9 9
[2022-05-26] MEDS ORDERED: MORPHINE 4 MG/ML SYR ONE (01:17)
[2022-05-26 02:56] VITALS: TEMP 99.1
[2022-05-26 03:01] VITALS: BP 153/103; O2SAT 99
== END 2022-05-26 01:19 | disposition short-term general hospital (02) ==
LOC: ER 19:49
DX: K85.90 Acute pancreatitis without necrosis or infection, unspecified (principal); I10 Essential (primary) hypertension; Z86.73 Personal history of transient ischemic attack (TIA), and cerebral infarction without residual deficits; Z20.822 Contact with and (suspected) exposure to COVID-19
CPT/HCPCS: 96361; 85025; 36415; 83690; 80053; 74177; 96375; 96374; 99285; 87811; Q9967; J7030; J2405

== ENCOUNTER 2022-08-01 21:31 | Emergency (ER) | payer OTHER ==
--- OUTSIDE RECORDS SUMMARY | 2022-08-01 22:03 | XMS REPORT | Continuity of Care Document ---
:2000 Author Organization [facility] t Address [address] [place] [address] [address] [place] [address] Care Team Providers Name Role Phone Pcp, Patient Does Not Have A Primary Care Physician [phone] 00-0000 WILLARD CROUCH Attending Clinician Unavailable WILLARD CROUCH EMILE Attending Clinician Unavailable [id number] Attending Clinician Unavailable Bro MANUEL, Stefany Attending Clinician Karthik Hsieh MD Attending Clinician [phone] Vernell Gonzalez MD Attending Clinician [phone] Melissa Leung MD Attending Clinician Kayla Thompson MD Attending Clinician KAYLA THOMPSON Attending Clinician Unavailable Heather MANUEL, Dyllan Attending Clinician JUAN JOSÉ GARCIA Attending Clinician Unavailable Estrada Sinclair MD Attending Clinician Juan José Garcia MDbeth Attending Clinician Cecil MANUEL, Corrie Attending Clinician Doctor Unassigned, [place] Attending Clinician Unavailable ANETA GUTIERREZ Attending Clinician Unavailable Aneta Gutierrez DO Attending Clinician Abiodun MANUEL, Silvio Mccray Attending Clinician SILVIO RASCON Attending Clinician Unavailable Masood MANUEL, Cy Attending Clinician Willard Crouch Attending Clinician Unavailable Estrada MANUEL, Gricelda Galindo Attending Clinician Gabriel MANUEL, Nilsa Graham Attending Clinician Deshawn MANUEL, Keron Marino Attending Clinician Galo MANUEL, Shama Angulo Attending Clinician Eli MANUEL, Irina Attending Clinician IRINA BENITEZ Attending Clinician Unavailable Tamia Jha Attending Clinician Hallie MANUEL, Marck Johnson Attending Clinician [phone] Lissette MANUEL, Amado Attending Clinician Shawn Lamar Attending Clinician Millie Gomez MD Attending Clinician Laith MANUEL, Khushi Goode Attending Clinician [phone] Bethany Durham MD Attending Clinician Suhail Man MD Attending Clinician [phone] BETHANY DURHAM Attending Clinician Unavailable AMADO GOYAL Attending Clinician Unavailable DOUG JOSHI Attending Clinician Unavailable SUHAIL MAN Attending Clinician Unavailable Kimmy Nunn MD Attending Clinician Kathy Fernandez MD Attending Clinician [phone] Cherri MANUEL, Aravind Ordaz Attending Clinician Vicki MANUEL, Ary Hargrove Attending Clinician [phone] Victor M MANUEL, Mana Mireles Attending Clinician Maura MANUEL, Rose Hardy Attending Clinician Karen MANUEL, Oren Attending Clinician Alisa MANUEL, Rebecca Smith Attending Clinician BEAR OSPINA Attending Clinician Unavailable TIWILLARD ENCARNACION, WILLARD Admitting Clinician Unavailable [id number] Admitting Clinician Unavailable VERNELL GONZALEZ Admitting Clinician Unavailable CORRIE CESAR Admitting Clinician Unavailable Cecil MANUEL, Corrie Admitting Clinician ANETA GUTIERREZ Admitting Clinician Unavailable SILVIO RASCON Admitting Clinician Unavailable Ti, Willard Admitting Clinician Unavailable NILSA RIOS Admitting Clinician Unavailable GRICELDA ARTEAGA Admitting Clinician Unavailable BETHANY DURHAM Admitting Clinician Unavailable KNOW, DOES_NOT Admitting Clinician Unavailable CY CORREIA Admitting Clinician Unavailable Payers Payer Name Policy Type Policy Number Effective Date Expiration Date S jonh CIG CIG [id number] [facility] [id number] [facility] [id number] GENERIC-CIGNA - [id number] 2021 2021 CIGNA 00:00:00 00:00:00 [facility] [id number] [facility]-MEDICAID - [id number] MEDICAID [place]ICAID [place] [id number] 2021 00:00:00 Problems Condition Condition Condition Status Onset Resolution Last Treating Co mments Source Name Details Category Date Date Treatment Clinician Date Hx of Hx of Disease Active [facility] bacterial bacterial 05-26 [facility] endocardit endocardit 00:00: Me dical is is 00 Center Abdominal Abdominal Disease Active 2021-05 Uni vers pain pain 0-28 ity of 00:00: [address] Branch Obesity Obesity Disease Active 2021-05 Univers (BMI (BMI 0-28 ity of 30-39.9) 30-39.9) 00:00: [place] 00 [facility] Branch Abscess Abscess Disease Active 2021-[address] [facility] between between 0-20 [facility] intestinal intestinal 00:00: Me dical loops loops 00 Center Abscess Abscess Disease Active [facility] 9-08 [facility] 00:00: Medical 00 [place] [facility] Intra-abdo Intra-abdo Disease Active [facility] [...] 4-13 [facility] (>16k) (>16k) 00:00: Medical 00 [facility] Pancytopen Pancytopen Disease Active [facility] ia ia 4-13 [facility] 00:00: Medical 00 [facility] Pre-diabet Pre-diabet Disease Active [facility] es es 409 [facility] 00:00: Medical 00 [facility] Hx of TIA Hx of TIA Disease [...] ubinemia ubinemia 4-08 [facility] 00:00: Medical 00 Center Elevated Elevated Disease Active [facility] LFT[facility] LFTs 4-08 [facility] 00:[facility]: Medical 00 Center SLE SLE Disease Active [facility] (systemic (systemic 408 [facility] 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:00: Medical erythemato erythemato 00 Ce nter margot margot related related syndrome) syndrome) Bipolar Bipolar Disease Active [facility] disorder disorder 4-08 [facility] 00:00: Medical 00 [place] [facility] Essential Essential Disease Active [facility] hypertensi hypertensi 4-08 Jessica kes on on 00:00: Medical 00 Center Allergies, Adverse Reactions, Alerts Allergy Allergy Status Severity Reaction(s) Onset Inactive Treating Comm ents Source Name Type Date Date Clinician ADHESIVE Drug Active Rash 2021-05 Univers Class 0-28 ity of 00:00: [place] 00 Medical Branch Adhesive Propensi Active Rash 2021-05 Univer s ty to 0-28 ity of adverse 00:00: [place] reaction 00 [facility] Adhesive Propensi Active 2021-[address] [facility] Tape ty to 0-21 [facility] adverse 00:00: Medical reaction 00 Center s ADHESIVE Allergy Active 2021-[address] [facility] TAPE 0-21 [facility] 00:00: Medical 00 [place] [facility] NO KNOWN Drug Active Univers ALLERGIE Class ity of S [facility] NO KNOWN Allergy Active [facility] ALLERGIE [facility] Family History Family Member Diagnosis Comments Start Date Stop Date Source Natural father Drug abuse [facility] Natural mother Drug abuse [facility] Social History Social Habit Start Date Stop Date Quantity Comments Source History [facility] Non-Med Medical Center History of Passive smoker University of tobacco use [facility] Exposure to 2022-03-04 2022-03-14 Not sure University SARS-CoV-2 00:00:00 14:36:00 [facility] (event) [facility] Alcohol intake 2022-03-08 2022-03-08 Ex-drinker [facility] es 00:00:00 00:00:00 (finding) Medical Center Tobacco use and 2021-12-08 2021-12-[address] [facility] exposure 00:00:00 00:00:00 Medical Center History [facility] 2021-12-08 2021-12-[address] [facility] Transport Med 00:00:00 00:00:[address] History [facility] 2021-12-08 2021-12-[address] [facility] Housing Unable to 00:00:00 00:00:00 Medical Center Pay History [facility] 2021-12-08 2021-12-[address] [facility] Housing Homeless 00:00:00 00:00:00 Medical Center Last Year History SDOH 2021-08-26 2021-08-[address] [facility] [address] [facility] Housing Places 00:00:00 00:00:00 Medical Ce nter Lived Sex Assigned At 2000 2001 PALAK Keenan 00:00:00 00:00:00 Medical Center Smoking Status Start Date Stop Date Source Tobacco smoking [facility] consumption unknown Medical Bran ch Occasional tobacco smoker 2022-03-16 [facility] 2021-12-08 00:00:00 2021-12-08 [facility] Medical 00:00:00 Center Medications Ordered Filled Start Stop Current Ordering Indication Dosage Frequency Signature Comments Components Source Medication Medication Date Date Medication? Clinician (SIG) Name Name atovaquone Yes 750mg QD Take [address] [facility] [address] (MEPRON) 1-18 (750 mg [facility] 750 mg/5 mL 00:00: total) by Cortney duranical suspension 00 mouth Center daily While on high dose steroids. atovaquone Yes 750mg QD Take [address] [address] (MEPRON) 1-18 (750 mg [facility] 750 mg/5 mL 00:00: total) by Cortney [employer] [place] 00 mouth Center daily While on high dose steroids. traZODone Yes 150mg QD Take [address] (DESYREL) 1-17 mg by [facility] 150 MG 15:29: mouth Medical tablet 24 nightly. Center metoprolol Yes 25mg Q.5D Take [address] tartrate 1-17 by mouth 2 [facility] (LOPRESSOR) 15:29: (two) Medic al 25 MG 24 times Center tablet daily. metFORMIN Yes 500mg Take [address] (GLUMETZA) 1-17 mg by [facility] 500 MG 15:29: mouth Medical (MOD) 24 hr 24 daily with Ce nter tablet breakfast. sertraline Yes 50mg QD Take [address] (ZOLOFT) 50 1-17 by mouth Luke s MG tablet 15:29: daily. Medica l 24 Center risperiDONE Yes .5mg QD Take 0.[address] (RisperDAL) 1-17 mg by [facility] 0.5 MG 15:29: mouth Medical tablet 24 daily. Center hydrOXYchlo 2022-0 Yes 200mg Q.5D Take [address] roQUINE 1-17 mg by [facility] (PLAQUENIL) 15:29: mouth 2 Med ical 200 mg 24 (two) Center tablet times daily. pantoprazol 2022-0 Yes 40mg QD Take [address] [facility] e 1-17 by mouth [facility] (PROTONIX) 15:29: daily. Medic al 40 MG 24 Center tablet traZODone 2022-0 Yes 150mg QD Take [address] (DESYREL) 1-17 mg by [facility] 150 MG 15:29: mouth Medical tablet 24 nightly. [facility] metoprolol 0 Yes 25mg Q.5D Take [address] tartrate 1-17 by mouth 2 [facility] (LOPRESSOR) 15:29: (two) Medic al 25 MG 24 times Center tablet daily. metFORMIN 2022-0 Yes 500mg Take [address] (GLUMETZA) 1-17 mg by [facility] 500 MG 15:29: mouth Medical (MOD) 24 hr 24 daily with Ce nter tablet breakfast. sertraline 0 Yes 50mg QD Take [address] (ZOLOFT) 50 1-17 by mouth Luke s MG tablet 15:29: daily. Medica l 24 [facility] risperiDONE 2022-0 Yes .5mg QD Take 0.[address] (RisperDAL) 1-17 mg by [facility] 0.5 MG 15:29: mouth Medical tablet 24 daily. Center hydrOXYchlo 2022-0 Yes 200mg Q.5D Take [address] roQUINE 1-17 mg by [facility] (PLAQUENIL) 15:29: mouth 2 Med ical 200 mg 24 (two) Center tablet times daily. pantoprazol 2022-0 Yes 40mg QD Take [address] [facility] e 1-17 by mouth [facility] (PROTONIX) 15:29: daily. Medic al 40 MG 24 Center tablet predniSONE 2022-0 2022- No 50mg QD Take [address] (DELTASONE) 1-17 01-17 by mouth Jody es 5 MG tablet 13:26: 00:00 daily . Me dical 19 :00 Center predniSONE 2022-0 2022- No 50mg QD Take [address] (DELTASONE) 1-17 -17 by mouth Jody es 5 MG tablet 13:26: 00:00 daily . Me dical 19 :00 Center predniSONE Yes Take 35mg [facility] (DELTASONE) 1-17 PO daily x Jessica kes 5 MG tablet 00:00: 7 days Medi doreen 00 then taper Center by 5mg every week. predniSONE Yes Take 35mg [facility] (DELTASONE) 1-17 PO daily x Jessica kes 5 MG tablet 00:00: 7 days Medi doreen 00 then taper Center by 5mg every week. oxyCODONE 2022- No 15mg Take 1 [facility] (ROXICODONE -06-15 tablet (15 L ukes ) 15 MG 00:00: 23:59 mg total) Medi doreen immediate 00 :00 by mouth Center release every 4 tablet (four) hours as needed for up to 10 days. Max Daily Amount: 90 mg oxyCODONE 2022- No 15mg Take 1 [facility] t (ROXICODONE -06-15 tablet (15 L ukes ) 15 MG 00:00: 23:59 mg total) Medi doreen immediate 00 :00 by mouth Center release every 4 tablet (four) hours as needed for up to 10 days. Max Daily Amount: 90 mg enoxaparin 2022- No 40mg QD Inject [address] (LOVENOX) 05-26 01-07 mg [facility] 40 mg/0.4 02:51: 00:00 subcutaneo M edical mL Syrg 04 :[address] [facility] daily. enoxaparin 2022- No 40mg QD Inject [address] (LOVENOX) 05-26 01-07 mg [facility] 40 mg/0.4 02:51: 00:00 subcutaneo M edical mL Syrg 04 :[address] [facility] daily. No known 2021-05 No No known Unive rs medications 0-31 medication it y of 14:29: s [address] ondansetron 2021-05 Yes 8mg 8 mg, Unive [...] dose, On Medic al (8 %) IV [place] Branch Piggyback 4 03/18/22 g at 1000, Routine ondansetron 2021-05- No 8mg 8 mg, Univ ers (ZOFRAN-ODT 0-30 10-30 Oral, ity of ) 00:36: 15:40 Q6HPRN, [place] disintegrat 34 :15 Starting Medi doreen ing tablet on Sat Branch 8 mg 03/17/22 at 1936, Until 03/18/22 at 1040, Routine, Nausea and Vomiting (N/V) lisinopriL 2021-05- No [id number] 5mg Take 1 Univers 5 mg tablet 0-30 11-30 tablet by it y of 00:00: 05:59 mouth in [place] 00 :00 the Medical morning Branch for 30 days. pantoprazol 2021-05- No [id number] 40mg Take 1 Univers e 40 mg EC 0-30 11-30 tablet by ity of tablet 00:00: 05:59 mouth in [place] 00 :00 the Medical morning Branch for 30 days. risperiDONE 2021-05- No [id number] .5mg Take 1 Univers 0.5 mg 0-30 11-30 tablet by ity of tablet 00:00: 05:59 mouth [place] 00 :00 every Medical morning Branch for 30 days. SERTraline 2021-05- No [id number] 50mg Take 1 Univers 50 mg 0-30 11-30 tablet by ity of tablet 00:00: 05:59 mouth in [place] 00 :00 the Medical morning Branch for 30 days. lisinopriL 2021-05- No [id number] 5mg Take 1 Univers 5 mg tablet 0-30 11-30 tablet by it y of 00:00: 05:59 mouth in [place] 00 :00 the Medical morning Branch for 30 days. pantoprazol 2021-05- No [id number] 40mg Take 1 Univers e 40 mg EC 0-30 11-30 tablet by ity of tablet 00:00: 05:59 mouth in [place] 00 :[address] [facility] Branch for 30 days. risperiDONE 2021-05- No [id number] .5mg Take 1 Univers 0.5 mg 0-30 11-30 tablet by ity of tablet 00:00: 05:59 mouth [place] 00 :00 every Medical morning Branch for 30 days. SERTraline 2021-05- No [id number] 50mg Take 1 Univers 50 mg 0-30 11-30 tablet by ity of tablet 00:00: 05:59 mouth in [place] 00 :[address] [facility] Branch for 30 days. lipase-prot 2021-05- No [id number] 2{capsu Take 2 Univers ease-amylas 0-30 11-14 le} capsules ity of e 00:00: 05:59 by mouth [place] 12,000-38,0 00 :00 in the Medica l 00 -60,000 morning Branch unit and 2 capsule capsules at noon and 2 capsules in the evening. Take with meals. Do all this for 14 days. docusate 2021-05- No [id number] 100mg Take 1 Univers 100 mg 0-30 11-10 capsule by ity of capsule 00:00: 05:59 mouth in [place] 00 :[address] [facility] Branch for 10 days. gadobenate 2021-05- No [id number] .2mL/kg 19.96 mL Univers dimeglumine 03-17 (0.2 mL/kg i ty of (MULTIHANCE 16:00: 16:00 ?99.8 kg), [place] -20 mL) 00 :00 Intravenou Medica l injection s, ONCE, 1 Bran ch 19.96 mL dose, On 03/17/22 at 1100, Routine LORazepam 2021-05- No 2mg 2 mg, Univer s (ATIVAN) 0-17 03- Oral, ity of tablet 2 mg 16:00: 15:12 ONCE, 1 [place] dose, On Medical Sat Branch 03/17/22 at 1100, Routine HYDROcodone 2021-05 Yes 1{tbl} 1 tablet, Univers -acetaminop 0-29 Oral, ity of hen (NORCO 14:12: Q6HPRN, [place] 5) 5-325 mg 34 Starting Medi doreen tablet 1 on Sat Branch tablet 03/17/22 at 0912, Until Discontinu ed, Routine, Pain (scale 4-6) lisinopriL 2021-05 Yes 5mg 5 mg, Univer s (PRINIVIL,Z 0- Oral, ity of ESTRIL) 14:00: DAILY, [place] tablet 5 mg 00 First dose Me dical on [facility] Branch 03/17/22 at 0900, Until Discontinu ed, Routine pantoprazol 2021-05 Yes 40mg 40 mg, Univ ers e 0- Oral, ity of (PROTONIX) 14:00: DAILY, [place] EC tablet 00 First dose Medi doreen 40 mg on Sat Branch 03/17/22 at 0900, Until Discontinu ed, Routine KCL 2021-05- No 40meq 40 mEq, Univers (KLOR-CON 0-17 03- Oral, ity of M20) tablet 13:00: 13:03 ONCE, 1 [place] 40 mEq 00 :00 dose, On Medical Sat Branch 03/17/22 at 0800, Routine HYDROcodone 2021-05- No 1{tbl} 1 tablet, Univers -acetaminop 0-29 10- Oral, ity of hen (NORCO 02:18: 02:26 ONCE, 1 [place] as 5) 5-325 mg 00 :00 dose, On Medi doreen tablet 1 Fri Branch tablet 03/16/22 at 2130, Routine traZODone 2021-05 Yes 50mg 50 mg, Univer s (DESYREL) 0-29 Oral, QHS, ity of tablet 50 02:00: First dose [place] mg 00 on Fri Medical 03/16/22 Branch at 2100, Until Discontinu ed, Routine traZODone 2021-05- No [id number] 50mg Take 1 Univers 50 mg 0-29 -29 tablet by ity of tablet 00:00: 05:59 mouth at [place] 00 :00 bedtime Medical for 30 Branch days. ondansetron 2021-05 No [id number] 4mg Take 1 Univers 4 mg tablet 04-17 tablet by it y of 00:00: 05:59 mouth [place] 00 :00 every 8 Medical (eight) Branch hours as needed for Nausea and Vomiting (N/V) for up to 30 days. traZODone 2021-05- No [id number] 50mg Take 1 Univers 50 mg 0-04-17 tablet by ity of tablet 00:00: 05:59 mouth at [place] 00 :00 bedtime Medical for 30 Branch days. ondansetron 2021-05 No [id number] 4mg Take 1 Univers 4 mg tablet 04-17 tablet by it y of 00:00: 05:59 mouth [place] 00 :00 every 8 Medical (eight) Branch hours as needed for Nausea and Vomiting (N/V) for up to 30 days. HYDROcodone 2021-05- No [id number] 1{tbl} Take 1 U nivers -acetaminop 0-17 04-06 tablet by it y of hen (NORCO) 00:00: 04:59 mouth [place] 10-325 mg 00 :00 every 6 Medical tablet (six) Branch hours as needed for Pain (scale 7-10) for up to 7 days. Indication s: acute pain HYDROcodone 2021-05- No [id number] 1{tbl} Take 1 U nivers -acetaminop 0-29 -06 tablet by it y of hen 5-325 [...] mg 00 First dose Medical on Sat [facility] 03/16/22 at 0900, Until Discontinu ed, Routine lidocaine 2021-05 Yes 1{patch 1 Patch, U nivers (LIDODERM) 0 } Topical, ity o f 5 % (700 14:00: Administer Avelino as mg/patch) 00 over 12 Medical patch 1 Hours, Branch Patch DAILY, First dose (after last reorder) on Sat03/16/22 at 0900, Until Discontinu ed, Routine risperiDONE 2021-05 Yes .5mg 0.5 mg, Uni vers (RISPERDAL) 0- Oral, QAM, it y of tablet 0.5 14:00: First dose [place] mg 00 on Sat [facility] 03/16/22 Branch at 0900, Until Discontinu ed, Routine SERTraline 2021-05 Yes 50mg 50 mg, Unive rs (ZOLOFT) 0- Oral, ity of tablet 50 14:00: DAILY, [place] mg 00 First dose Medical on Sat [facility] 03/16/22 at 0900, Until Discontinu ed, Routine docusate 2021-05 Yes 100mg 100 mg, Unive rs (COLACE) 0-28 Oral, ity of capsule 100 14:00: DAILY, [place] mg 00 First dose Medical on Sat [facility] 03/16/22 at 0900, Until Discontinu ed, Routine polyethylen 2021-05 Yes 17g 17 g, Unive rs e glycol 0- Oral, BID, ity o f 3350 powder 13:00: First dose [place] 17 g 00 on [facility] 03/16/22 Branch at 0800, Until Discontinu ed, Routine lipase-prot 2021-05 Yes 2{capsu 2 capsule, Univers ease-amylas 0- le} Oral, TID ity of e (CREON) 13:00: MEALS, [place] 12,000-38,0 00 First dose Me dical 00 -60,000 (after Branch unit last capsule 2 modificati capsule on) on Sat03/16/22 at 0800, Until Discontinu ed, Routine pantoprazol 2021-05 No 40mg 40 mg, Uni vers e 0-16 03- Slow IV ity of (PROTONIX) 13:00: 19:44 Push, [place] injection 00 :37 Q12H, Medical 40 mg First dose Branch on Sat03/16/22 at 0800, Until Discontinu ed morpHINE (2 2021-05- No 2mg 2 mg, Slow Univers mg/mL) 0 1030 IV Push, ity of injection 2 09:31: [...] 2021-05- No 1{tbl} 1 tablet, Univers en-codeine 03-17 Oral, ity of (TYLENOL 06:56: 14:12 Q6HPRN, [place] #3) 300-30 37 :50 Starting Medic al mg tablet 1 on Sat Branch tablet 03/16/22 at 0156, Until 03/17/22 at 0912, Routine, Pain (scale 4-6) acetaminoph 2021-05 Yes 650mg 650 mg, Un hillary en 0- Oral, ity of (TYLENOL) 06:56: Q6HPRN, [place] tablet 650 35 Starting Medic al mg on Sat Branch 03/16/22 at 0156, Until Discontinu ed, Routine, Pain (scale 1-3) HYDROcodone 2021-05- No 1{tbl} 1 tablet, Univers -acetaminop 003-14 Oral, ity of hen (NORCO) 22:30: 22:20 ONCE, 1 [place] 10-325 mg 00 :00 dose, On Medica l tablet 1 Wed Branch tablet 03/14/22 at 1730, Routine iopamidol 2021-05- No [id number] 65mL 65 mL, Un hillary (ISOVUE 003-14 [...] Branch 03/14/22 at 1545, STAT NaCl 0.9% 2021-05 No 30mL/kg at 999 Un hillary (NS) bolus 0- mL/hr, ity of infusion 20:15: 23:27 2,994 mL [place] 2,994 mL 00 :00 (30 mL/kg Medica l ?99.8 kg), Branch IV Piggyback, ONCE, 1 dose, On 03/14/22 at 1515, STAT ertapenem 2021-05- No 1000mg 1,000 mg, Univers (INVANZ) 003-14 IV ity of 1,000 mg in 19:30: 21:22 Piggyback, [place] NaCl 0.9% 00 :00 ONCE, 1 Medical (NS) 50 mL dose, On Bran h MINI-BAG 03/14/22 at 1430, Administer over 30 Minutes, 50 mL
Reas on for Anti-Infec tive: Documented Infection< br>Documen hernandez Infection Site: Abdominal& lt;br>Dura tion of Therapy: 7 days
Re stricted use approved by: Documented ESBL infection or colonizati on cefdinir 2021-05- No [id number] 300mg Take 1 Un hillary 300 mg 0-26 11-10 capsule by ity of capsule 00:00: 05:59 mouth [place] 00 :00 every 12 [facility] Branch hours for 14 days. metroNIDAZO 2021-05- No [id number] 500mg Take 1 Univers LE 500 mg 0-26 11-10 tablet by ity of tablet 00:00: 05:59 mouth in [place] 00 :[address] [facility] Branch and 1 tablet in the evening. Do all this for 14 days. fluconazole 2021-05- No [id number] 150mg Take 1 Univers 150 mg 0-26 11-10 tablet by ity of tablet 00:00: 05:59 mouth in [place] 00 :00 the [facility] for 14 doses. cefdinir 2021-05- No [id number] 300mg Take 1 Un hillary 300 mg 0-26 10-29 capsule by ity of capsule 00:00: 00:00 mouth [place] 00 :00 every 12 [facility] Branch hours for 14 days. metroNIDAZO 2021-05- No [id number] 500mg Take 1 Univers LE 500 mg 0-26 10-29 tablet by ity of tablet 00:00: 00:00 mouth in [place] 00 :[address] [facility] Branch and 1 tablet in the evening. Do all this for 14 days. fluconazole 2021-05- No [id number] 150mg Take 1 Univers 150 mg 0-26 10-29 tablet by ity of tablet 00:00: 00:00 mouth in [place] 00 :00 the [facility] for 14 doses. enoxaparin 2021-05 Yes 40mg QD Inject [address] (LOVENOX) 0-25 mg [facility] 40 mg/0.4 15:17: subcutaneo Me dical mL Syrg [address] [facility] daily. enoxaparin 2021-05 Yes 40mg QD Inject [address] (LOVENOX) 0-25 mg [facility] 40 mg/0.4 15:17: subcutaneo Me dical mL Syrg 26 [facility] Center daily. enoxaparin 2021-05 Yes 40mg QD Inject [address] (LOVENOX) 0-25 mg [facility] 40 mg/0.4 15:17: subcutaneo Me dical mL Syrg [address] [facility] daily. fluconazole 2021-05- No 400mg QD Take 2 [...] mouth daily for 26 days. predniSONE 2021-05- No 7.5mg QD Take [...] 00:00 mouth Medical tablet 30 :00 daily. [place] [facility] metFORMIN 2021-05- No 500mg Take [address] (GLUCOPHAGE 0-24 10-24 mg by [facility] ) 500 MG 12:03: 00:00 mouth 2 Medic al tablet 30 :00 (two) Center times daily with breakfast and dinner. traZODone 2021-05- No 100mg QD Take [address] (DESYREL) 0-24 10-24 mg by [facility] 100 MG 12:03: 00:00 mouth Medical tablet 30 :00 nightly. [place] [facility] risperiDONE 2021-05- No .5mg QD Take 0.[address] (RisperDAL) 0-24 10-24 mg by [facility] 0.5 MG 12:03: 00:00 mouth Medical tablet 30 :00 daily. [place] metFORMIN 2021-05- No 500mg Take [address] (GLUCOPHAGE 0-24 10-24 mg by [facility] ) 500 MG 12:03: 00:00 mouth 2 Medic al tablet 30 :00 (two) Center times daily with breakfast and dinner. traZODone 2021-05- No 100mg QD Take [address] (DESYREL) 0-24 10-24 mg by [facility] 100 MG 12:03: 00:00 mouth Medical tablet 30 :00 nightly. [place] [facility] risperiDONE 2021-05- No .5mg QD Take 0.[address] (RisperDAL) 0-24 10-24 mg by [facility] 0.5 MG 12:03: 00:00 mouth Medical tablet 30 :00 daily. [place] [facility] metFORMIN 2021-05- No 500mg Take 500 CH [...] 00:00 mouth Medical tablet 30 :00 daily. [place] [facility] metFORMIN 2021-05- No 500mg Take [address] (GLUCOPHAGE 0-24 10-24 mg by [facility] ) 500 MG 12:03: 00:00 mouth 2 Medic al tablet 30 :00 (two) Center times daily with breakfast and dinner. traZODone 2021-05- No 100mg QD Take [address] (DESYREL) 0-24 10-24 mg by [facility] 100 MG 12:03: 00:00 mouth Medical tablet 30 :00 nightly. [facility] risperiDONE 2021-05- No .5mg QD Take 0.[address] (RisperDAL) 0-24 10-24 mg by [facility] 0.5 MG 12:03: 00:00 mouth Medical tablet 30 :00 daily. [place] [facility] metFORMIN 2021-05- No 500mg Take [address] (GLUCOPHAGE 0-24 10-24 mg by [facility] ) 500 MG 12:03: 00:00 mouth 2 Medic al tablet 30 :00 (two) Center times daily with breakfast and dinner. traZODone 2021-05- No 100mg QD Take [address] (DESYREL) 0-24 10-24 mg by [facility] 100 MG 12:03: 00:00 mouth Medical tablet 30 :00 nightly. [facility] HYDROcodone 2021-05 Yes 1{tbl} Take 1 CH [...] Max Daily Amount: 4 tablets mycophenola 2021-05- No 180mg Q.5D Take [address] 0-24 10-24 tablet [facility] (MYFORTIC) 00:00: 23:59 (180 mg Med ical 180 MG EC 00 :00 total) by Cente r tablet mouth 2 (two) times daily. mycophenola 2021-05- No 180mg Q.5D Take [address] 0-24 10-24 tablet [facility] (MYFORTIC) 00:00: 23:59 (180 mg Med ical 180 MG EC 00 :00 total) by Cente r tablet mouth 2 (two) times daily. mycophenola 2021-05- No 180mg Q.5D Take [address] [facility] [address] [facility] 0-[facility] 10-24 [facility] (MYFORTIC) 00:00: 23:59 (180 mg Med ical 180 MG EC 00 :00 total) by Cent[facility] r tablet mouth 2 (two) times daily. HYDROcodone 2021-05 No 1{tbl} Take [address] -acetaminop 0-24 01-07 tablet by Jessica mehta ([place] 00:00: 00:00 mouth Medic al 5-325) 00 :00 every 6 Center 5-325 mg (six) per tablet hours as needed for Pain for up to 10 doses. Max Daily Amount: 4 tablets mycophenola 2021-05- No 180mg Q.5D Take [address] [facility] [address] [facility] 0-24 01-07 [facility] (MYFORTIC) 00:00: 00:00 (180 mg Med ical 180 MG EC 00 :00 total) by Cente r tablet mouth 2 (two) times daily. HYDROcodone 2021-05 No 1{tbl} Take [address] -acetaminop 0-24 01-07 tablet by Jessica mehta ([place] 00:00: 00:00 mouth Medic al 5-325) 00 :00 every 6 Center 5-325 mg (six) per tablet hours as needed for Pain for up to 10 doses. Max Daily Amount: 4 tablets mycophenola 2021-05- No 180mg Q.5D Take [address] [facility] [address] [facility] 0-24 01-07 [facility] (MYFORTIC) 00:00: 00:00 (180 mg Med ical 180 MG EC 00 :00 total) by Cente r tablet mouth 2 (two) times daily. metroNIDAZO 2021-05- No 500mg Take [address] [facility] [address] [facility] (FLAGYL) 0-24 11-20 [facility] 500 MG 00:00: 23:59 (500 mg Medical tablet 00 :00 total) by Center mouth every 8 (eight) hours for 27 days. cefdinir 2021-05 No 300mg [facility].5D [facility] 8 (eight) hours for 27 days. cefdinir 2021-05 No 300mg Q.5D [facility] times daily for 27 days. gabapentin 2021-05- No 400mg Q.[id number] Take [address] [facility] (NEURONTIN) 0-24 10- [id number] capsule [facility] 400 MG 00:00: 23:59 3D [...] Take [address] [facility] [address] [facility] roQUINE 0-24 10-29 tablet [facility] (PLAQUENIL) 00:00: 23:59 (200 mg Me dical 200 mg 00 :00 total) by Center tablet mouth 2 (two) times daily for 5 days. pantoprazol 2021-05- No 40mg QD Take [address] [facility] e -03-17 tablet (40 [facility] (PROTONIX) 00:00: 23:59 mg total) M edical 40 MG 00 :00 by mouth Center tablet daily for 5 days. risperiDONE 2021-05 No .5mg QD Take [address] [facility] (RisperDAL) 03-17 tablet [facility] 0.5 MG 00:00: 23:59 (0.5 mg Medical tablet 00 :00 total) by Center mouth daily for 5 days. sertraline 2021-05 No 50mg QD Take [address] [facility] (ZOLOFT) 50 03-17 tablet (50 [facility] MG tablet 00:00: 23:59 mg total) Me dical 00 :00 by mouth Center daily for 5 days. traZODone 2021-05 No 100mg QD Take [address] [facility] (DESYREL) 03-17 tablet [facility] 100 MG 00:00: 23:59 (100 mg Medical tablet 00 :00 total) by Center mouth nightly for 5 days. gabapentin 2021-05- No 400mg Q.[id number] Take [address] [facility] (NEURONTIN) 03-17 [id number] capsule [facility] 400 MG 00:00: 23:59 3D [...] Take [address] [facility] [address] [facility] roQUINE 0-24 10-29 tablet [facility] (PLAQUENIL) 00:00: 23:59 (200 mg Me dical 200 mg 00 :00 total) by Center tablet mouth 2 (two) times daily for 5 days. pantoprazol 2021-05 No 40mg QD Take [address] [facility] e 0-24 -29 tablet (40 [facility] (PROTONIX) 00:00: 23:59 mg total) M edical 40 MG 00 :00 by mouth Center tablet daily for 5 days. risperiDONE 2021-05 No .5mg QD Take [address] [facility] (RisperDAL) 0-24 - tablet [facility] 0.5 MG 00:00: 23:59 (0.5 mg Medical tablet 00 :00 total) by Center mouth daily for 5 days. sertraline 2021-05 No 50mg QD Take [address] [facility] (ZOLOFT) 50 0-12 03- tablet (50 [facility] MG tablet 00:00: 23:59 mg total) Me dical 00 :00 by mouth Center daily for 5 days. traZODone 2021-05 100mg QD Take [address] [facility] (DESYREL) 0-24 - tablet [facility] 100 MG 00:00: 23:59 (100 mg Medical tablet 00 :00 total) by Center mouth nightly for 5 days. gabapentin 2021-05 No 400mg Q.[id number] Take [address] [facility] (NEURONTIN) 0-24 - [id number] capsule [facility] 400 MG 00:00: 23:59 3D (400 mg Medical capsule 00 :00 total) by Center mouth 3 (three) times daily for 5 days. morphine 2021-05 No 30mg Take [address] [facility] (MS CONTIN) 0-24 -29 tablet (30 [facility] 30 MG 12 hr 00:00: 23:59 mg total) Medical tablet 00 :00 by mouth Center every 12 (twelve) hours for 5 days. Max Daily Amount: 60 mg metoprolol 2021-05- No 25mg Q.5D Take [address] [facility] tartrate 0-24 -29 tablet (25 [facility] (LOPRESSOR) 00:00: 23:59 mg total) Medical 25 MG 00 :00 by mouth 2 Center tablet (two) times daily for 5 days. hydrOXYchlo 2021-05 No 200mg Q.5D Take [address] [facility] [address] [facility] roQUINE 003-17 tablet [facility] (PLAQUENIL) 00:00: 23:59 (200 mg Me dical 200 mg 00 :00 total) by Center tablet mouth 2 (two) times daily for 5 days. pantoprazol 2021-05- No 40mg QD Take [address] [facility] e 003-17 tablet (40 [facility] (PROTONIX) 00:00: 23:59 mg total) M edical 40 MG 00 :00 by mouth Center tablet daily for 5 days. risperiDONE 2021-05 No .5mg QD Take [address] [facility] (RisperDAL) 03-17 [facility] 0.5 MG 00:00: 23:59 (0.5 mg Medical tablet 00 :00 total) by Center mouth daily for 5 days. sertraline 2021-05 No 50mg QD Take [address] [facility] (ZOLOFT) 50 03-17 tablet (50 [facility] MG tablet 00:00: 23:59 mg total) Me dical 00 :00 by mouth Center daily for 5 days. traZODone 2021-05 No 100mg QD Take [address] [facility] (DESYREL) 03-17 [facility] 100 MG 00:00: 23:59 (100 mg Medical tablet 00 :00 total) by Center mouth nightly for 5 days. gabapentin 2021-05- No 400mg Q.[id number] Take [address] [facility] (NEURONTIN) 003-17 [id number] capsule [facility] 400 MG 00:00: 23:59 3D [...] 25mg Q.5D Take [address] [facility] tartrate 0-03-17 tablet (25 [facility] (LOPRESSOR) 00:00: 23:59 mg total) Medical 25 MG 00 :00 by mouth 2 Center tablet (two) times daily for 5 days. hydrOXYchlo 2021-05 No 200mg Q.5D Take 1 [facility] [...] .5mg QD Take [address] [facility] (RisperDAL) 0-12 03- tablet [facility] 0.5 MG 00:00: 23:59 (0.5 mg Medical tablet 00 :00 total) by Center mouth daily for 5 days. sertraline 2021-05 No 50mg QD Take [address] [facility] (ZOLOFT) 50 0-12 03- tablet (50 [facility] MG tablet 00:00: 23:59 mg total) Me dical 00 :00 by mouth Center daily for 5 days. traZODone 2021-05 No 100mg QD Take [address] [facility] (DESYREL) 0-12 03- tablet [facility] 100 MG 00:00: 23:59 (100 mg Medical tablet 00 :00 total) by Center mouth nightly for 5 days. gabapentin 2021-05- No 400mg Q.[id number] Take [address] [facility] (NEURONTIN) 0-24 - [id number] capsule [facility] 400 MG 00:00: 23:59 3D [...] days. Max Daily Amount: 60 mg metoprolol 2021-05 No 25mg Q.5D Take [address] [facility] tartrate 0-24 - tablet (25 [facility] (LOPRESSOR) 00:00: 23:59 mg total) Medical 25 MG 00 :00 by mouth 2 Center tablet (two) times daily for 5 days. hydrOXYchlo 2021-05 No 200mg Q.5D Take [address] [facility] [address] [facility] roQUINE 0-24 - tablet [facility] (PLAQUENIL) 00:00: 23:59 (200 mg Me dical 200 mg 00 :00 total) by Center tablet mouth 2 (two) times daily for 5 days. pantoprazol 2021-05 No 40mg QD Take [address] [facility] e 0-12 03- tablet (40 [facility] (PROTONIX) 00:00: 23:59 mg total) M edical 40 MG 00 :00 by mouth Center tablet daily for 5 days. risperiDONE 2021-05 No .5mg QD Take [address] [facility] (RisperDAL) 0-12 03- tablet [facility] 0.5 MG 00:00: 23:59 (0.5 mg Medical tablet 00 :00 total) by Center mouth daily for 5 days. sertraline 2021-05 50mg QD Take [address] [facility] (ZOLOFT) 50 0-12 03- tablet (50 [facility] MG tablet 00:00: 23:59 mg total) Me dical 00 :00 by mouth Center daily for 5 days. traZODone 2021-05 No 100mg QD Take [address] [facility] (DESYREL) 0-24 - tablet [facility] 100 MG 00:00: 23:59 (100 mg Medical tablet 00 :00 total) by Center mouth nightly for 5 days. predniSONE 2021- No 7.5mg QD Take [address] [facility] (DELTASONE) - 10- tablets [facility] 2.5 MG 00:00: 23:59 (7.5 mg Medical tablet 00 :00 total) by Center mouth daily for 10 days. predniSONE 2021- No 7.5mg QD Take [address] [facility] (DELTASONE) 9- 10- tablets [facility] 2.5 MG 00:00: 23:59 (7.5 mg Medical tablet 00 :00 total) by Center mouth daily for 10 days. predniSONE 2021- 202- No 7.5mg QD Take [address] [facility] (DELTASONE) 02-12 10- tablets [facility] 2.5 MG 00:00: 23:59 (7.5 mg Medical tablet 00 :00 total) by Center mouth daily for 10 days. predniSONE 2021-2021- No 7.5mg QD Take [address] [facility] (DELTASONE) 02-12 10- tablets [facility] 2.5 MG 00:00: 23:59 (7.5 mg Medical tablet 00 :00 total) by Center mouth daily for 10 days. predniSONE 2021-2021- No 7.5mg QD Take [address] [facility] (DELTASONE) 02-12- tablets [facility] 2.5 MG 00:00: 23:59 (7.5 mg Medical tablet 00 :00 total) by Center mouth daily for 10 days. fluconazole 2021-2021- No 200mg QD Take [address] [facility] [address] [facility] (DIFLUCAN) 02-12 [facility] 200 MG 00:00: 23:59 (200 mg Medical tablet 00 :00 total) by Center mouth daily for 7 days. fluconazole 2021-2021- No 200mg QD Take [address] [facility] [address] [facility] (DIFLUCAN) 02-12 [facility] 200 MG 00:00: 23:59 (200 mg Medical tablet 00 :00 total) by Center mouth daily for 7 days. fluconazole 2021-0 2022- No 200mg QD Take [address] [facility] [address] [facility] (DIFLUCAN) 02-12 [facility] 200 MG 00:00: 23:59 (200 mg Medical tablet 00 :00 total) by Center mouth daily for 7 days. fluconazole 2021-0 2022- No 200mg QD Take [address] [facility] [address] [facility] (DIFLUCAN) 02-12 10- tablet [facility] 200 MG 00:00: 23:59 (200 mg Medical tablet 00 :00 total) by Center mouth daily for 7 days. fluconazole 2021-0 2022- No 200mg QD Take [address] [facility] [address] [facility] (DIFLUCAN) 02-12 10- tablet [facility] 200 MG 00:00: 23:59 (200 [...] [facility] ate 9-25 10-24 tablets by Jessicakes (SENOKOT S) 00:00: 00:00 mouth 2 Me dical 8.6-50 mg 00 :00 (two) Center per tablet times daily. metroNIDAZO 2022-0 2022- No 500mg Take [address] [facility] [address] [facility] (FLAGYL) 9-25 10-24 [facility] 500 MG 00:00: 00:00 (500 mg Medical tablet 00 :00 total) by Center mouth every 8 (eight) hours. insulin 2021-2- No 0U Inject 0-[address] [facility] lispro [...] (two) Center per tablet times daily. metroNIDAZO 2021-0 2022- No 500mg Take [address] [facility] [address] [facility] (FLAGYL) 9-25 10-24 [facility] 500 MG 00:00: 00:00 (500 mg Medical tablet 00 :00 total) by Center mouth every 8 (eight) hours. insulin 2021-0 2022- No 0U Inject 0-[address] [facility] [...] (three) times daily before meals. mycophenola 2021-0 2021- No 250mg Q.5D Take 1 [facility] [...] r mouth every 12 (twelve) hours. senna-docus 2021-0 2- No 2{tbl} Q.5D Take [address] ate 9-25 10-24 tablets by [facility] (SENOKOT S) 00:00: 00:00 mouth 2 Me dical 8.6-50 mg 00 :00 (two) Center per tablet times daily. metroNIDAZO 2021-0 2022- No 500mg Take [address] [facility] [address] [facility] (FLAGYL) 9-25 10-24 [facility] 500 MG 00:00: 00:00 (500 mg Medical tablet 00 :00 total) by Center mouth every 8 (eight) hours. insulin 2021-0 2- No 0U Inject 0-[address] [facility] [address] lispro [...] r mouth every 12 (twelve) hours. senna-docus 2021-0 2021- No 2{tbl} Q.5D Take [address] ate 9-25 10-24 tablets by [facility] (SENOKOT S) 00:00: 00:00 mouth 2 Me dical 8.6-50 mg 00 :00 (two) Center per tablet times daily. metroNIDAZO 2021-0 2022- No 500mg Take [address] [facility] [address] [facility] (FLAGYL) 9-25 10-24 [facility] 500 MG 00:00: 00:00 (500 mg Medical tablet 00 :00 total) by Center mouth every 8 (eight) hours. insulin 2021-0 2022- No 0U Inject 0-[address] [facility] [...] mouth 2 (two) times daily. traMADoL 2021-0 2022- No 100mg Q.25D Take [...] (four) times daily for 10 days. traMADoL 2-0 2022- No 100mg Q.25D Take 100 [facility] [...] (four) times daily for 10 days. traMADoL 2-0 2022- No 100mg Q.25D Take 100 [facility] [...] Max Daily Amount: 400 mg methocarbam 2021-0 2021- No 500mg Q.25D Take [address] oL 9-25 10-05 tablet [facility] (ROBAXIN) 00:00: 23:59 (500 mg Medi doreen 500 MG 00 :00 total) by Center tablet mouth 4 (four) times daily for 10 days. polyethylen 2021-0 2- No 17g Q.5D Take [address] [facility] e glycol 9-25 -28 by mouth 2 [facility] (GLYCOLAX) 00:00: 23:59 (two) Medic al 17 gram 00 :00 times Center packet daily for 3 days. polyethylen 2021-0 2- No 17g Q.5D Take [address] [facility] e glycol 9-25 09-28 by mouth 2 [facility] (GLYCOLAX) 00:00: 23:59 (two) Medic al 17 gram 00 :00 times Center packet daily for 3 days. polyethylen 2021-0 2- No 17g Q.5D Take [address] [facility] e glycol 9-25 -28 by mouth 2 [facility] (GLYCOLAX) 00:00: [...] Q.5D Take [address] [facility] 01-0325 [facility] (CELLCEPT) 00:00: 00:00 (500 mg Med ical 500 mg 00 :00 total) by Center tablet mouth 2 (two) times daily for 30 days. mycophenola 2021-0 2022- No 500mg Q.5D Take [address] [facility] 01-0325 [facility] (CELLCEPT) 00:00: 00:00 (500 mg Med ical 500 mg 00 :00 total) by Center tablet mouth 2 (two) times daily for 30 days. mycophenola 2021-0 2022- No 500mg Q.5D Take [address] [facility] [address] [facility] 01-03-25 tablet [facility] (CELLCEPT) 00:00: 00:00 (500 mg Med ical 500 mg 00 :00 total) by Center tablet mouth 2 (two) times daily for 30 days. mycophenola 2021-0 2022- No 500mg Q.5D Take [address] [facility] [address] [facility] 01-0325 [facility] (CELLCEPT) 00:00: 00:00 (500 mg Med ical 500 mg 00 :00 total) by Center tablet mouth 2 (two) times daily for 30 days. mycophenola 2021-0 2022- No 500mg Q.5D Take [address] [facility] [address] [facility] 17 -25 tablet [facility] (CELLCEPT) 00:00: 00:00 (500 mg Med ical 500 mg 00 :00 total) by Center tablet mouth 2 (two) times daily for 30 days. mycophenola 2-0 2022- No 500mg Q.5D Take [address] [facility] [address] [facility] 17 -16 tablet [facility] (CELLCEPT) 00:00: 23:59 (500 mg Med ical 500 mg 00 :00 total) by Center tablet mouth 2 (two) times daily for 30 days. predniSONE 2021-0 2021- No Take [address] [facility] (DELTASONE) 12-2625 tablets [facility] 5 MG tablet 00:00: [...] 2021- No Take [address] [facility] (DELTASONE) 12-26- tablets [...] 2021- No Take [address] [facility] (DELTASONE) 12-26- tablets [...] mg total) daily for 30 days. DAPTOmycin No 800mg Q24H Inject [address] [facility] (CUBICIN) 12-26 mg [facility] in sodium 00:00: 23:59 intravenou M edical chloride 00 :00 sly daily Center (NS) for 7 NON-DEHP 50 days. ML IVPB ertapenem 2021- 1g Q24H Inject [address] [facility] (INVanz) 1 12-2616 intravenou Jessica kes g in NS 100 [...] [address] [facility] (INVanz) 1 - 08-16 intravenou Jessica kes g in NS [...] MG 23:36: mouth Medical tablet 04 nightly. [facility] enoxaparin Yes 40mg QD Inject [address] (LOVENOX) 8-08 mg [facility] 40 mg/0.4 23:36: subcutaneo Me dical mL Syrg 04 usly Center daily. predniSONE 2021- 2022- No 50mg QD Take [address] [facility] (DELTASONE) 12-25-08 by mouth Jody es 50 MG 16:30: 00:00 daily. Medical tablet 18 :00 [facility] predniSONE 2021-2- No 50mg QD Take [address] [facility] (DELTASONE) 12-25-08 by mouth Jody es 50 MG 16:30: 00:00 daily. Medical tablet 18 :00 [facility] predniSONE 2021-0 2022- No 50mg QD Take [address] [facility] (DELTASONE) 8-08 by mouth Jody es 50 MG 16:30: 00:00 daily. Medical tablet 18 :00 [facility] predniSONE 2021-0 2- No 50mg QD Take [address] [facility] (DELTASONE) 12-25-08 by mouth Jody es 50 MG 16:30: 00:00 daily. Medical tablet 18 :00 [facility] predniSONE 2021-0 2- No 50mg QD Take [address] [facility] (DELTASONE) 12-25- by mouth Jody es 50 MG 16:30: 00:00 daily. Medical tablet 18 :00 [facility] predniSONE 2021-0 2- No 50mg QD Take [address] [facility] (DELTASONE) 12-25-08 by mouth Jody es 50 MG 16:30: 00:00 daily. Medical tablet 18 :00 [facility] HYDROcodone Yes 1{tbl} Take [address] [facility] -acetaminop 8-08 tablet by Jody es hen (NORCO 00:00: mouth Medica l 5-325) 00 every 6 [facility] 5-325 mg (six) per tablet hours as needed for Pain for up to 10 doses. Max Daily Amount: 4 tablets HYDROcodone 2021-0 2021- No 1{tbl} Take [address] -acetaminop 8-08 10-24 tablet by Jessica mehta ([place] 00:00: 00:00 mouth Medic al 5-325) 00 :00 every 6 Center 5-325 mg (six) per tablet hours as needed for Pain for up to 10 doses. Max Daily Amount: 4 tablets HYDROcodone 2021-2021- No 1{tbl} Take [address] -acetaminop 8-08 10-24 tablet by Jessica mehta ([place] 00:00: 00:00 mouth Medic al 5-325) 00 :00 every 6 Center 5-325 mg (six) per tablet hours as needed for Pain for up to 10 doses. Max Daily Amount: 4 tablets HYDROcodone 2021-2021- No 1{tbl} Take [address] -acetaminop 8-08 10-24 tablet by Jessica mehta ([place] 00:00: 00:00 mouth Medic al 5-325) 00 :00 every 6 Center 5-325 mg (six) per tablet hours as needed for Pain for up to 10 doses. Max Daily Amount: 4 tablets HYDROcodone 2021-2021- No 1{tbl} Take [address] -acetaminop 8-08 10-24 tablet by Jessica mehta ([place] 00:00: 00:00 mouth Medic al 5-325) 00 :00 every 6 Center 5-325 mg (six) per tablet hours as needed for Pain for up to 10 doses. Max Daily Amount: 4 tablets HYDROcodone 2021-2021- No 1{tbl} Take [address] -acetaminop 8-08 10-24 tablet by Jessica mehta ([place] 00:00: 00:00 mouth Medic al 5-325) 00 :00 every 6 Center 5-325 mg (six) per tablet hours as needed for Pain for up to 10 doses. Max Daily Amount: 4 tablets sulfamethox 2021-0 Yes 160mg{t Q.[id number] Take [address] [facility] azole-trime 5-25 rimetho [id number] tablet [facility] thoprim 00:00: prim} 3W (160 mg of Med ical (BACTRIM 00 trimethopr Cente r DS) 800-160 im total) mg per by mouth 3 tablet (three) times a week I. sulfamethox 2021- No 160mg{t Q.[id number] Take [address] [facility] azole-trime 5-25 -25 rimetho [id number] tablet [facility] thoprim 00:00: 00:00 prim} 3W (160 mg of Me dical (BACTRIM 00 :00 trimethopr Cente r DS) 800-160 im total) mg per by mouth 3 tablet (three) times a week I. sulfamethox 2021- No 160mg{t Q.[id number] Take [address] [facility] azole-trime 5-25 -25 rimetho [id number] tablet [facility] thoprim 00:00: 00:00 prim} 3W (160 mg of Me dical (BACTRIM 00 :00 trimethopr Cente r DS) 800-160 im total) mg per by mouth 3 tablet (three) times a week I. sulfamethox 2021- No 160mg{t Q.[id number] Take [address] [facility] azole-trime 5-25 -25 rimetho [id number] tablet [facility] thoprim 00:00: 00:00 prim} 3W (160 mg of Me dical (BACTRIM 00 :00 trimethopr Cente r DS) 800-160 im total) mg per by mouth 3 tablet (three) times a week I. sulfamethox 2021- No 160mg{t Q.[id number] Take [address] [facility] azole-trime 5-25 -25 rimetho [id number] tablet [facility] thoprim 00:00: 00:00 prim} 3W (160 mg of Me dical (BACTRIM 00 :00 trimethopr Cente r DS) 800-160 im total) mg per by mouth 3 tablet (three) times a week I. sulfamethox 2021- No 160mg{t Q.[id number] Take [address] [facility] azole-trime 5-25 -25 rimetho [id number] tablet [facility] thoprim 00:00: 00:00 prim} 3W (160 mg of Me dical (BACTRIM 00 :00 trimethopr Cente r DS) 800-160 im total) mg per by mouth 3 tablet (three) times a week SAT/SAT/ I. levoFLOXaci 2021-0 2022- No 750mg QD Take [address] [facility] 10-10- tablet [facility] (LEVAQUIN) 00:00: 00:00 (750 mg Med ical 750 MG 00 :00 total) by Center tablet mouth daily. metroNIDAZO 2022-0 2022- No 500mg Q.[id number] Take [address] [facility] (FLAGYL) 10-10 [id number] [facility] 500 MG 00:00: 00:00 3D (500 mg Medical tablet 00 :00 total) by Center mouth 3 (three) times daily. levoFLOXaci 2-0 2022- No 750mg QD Take [address] [facility] [address] [facility] 10-10- tablet [facility] (LEVAQUIN) 00:00: 00:00 (750 mg Med ical 750 MG 00 :00 total) by Center tablet mouth daily. metroNIDAZO 2022-0 2022- No 500mg Q.14789645 Take [address] [facility] (FLAGYL) 10-10 [id number] [facility] 500 MG 00:00: 00:00 3D (500 mg Medical tablet 00 :00 total) by Center mouth 3 (three) times daily. levoFLOXaci 2022-0 2022- No 750mg QD Take [address] [facility] [address] [facility] n 10-10- tablet [facility] (LEVAQUIN) 00:00: 00:00 (750 mg Med ical 750 MG 00 :00 total) by Center tablet mouth daily. metroNIDAZO 2022-0 2022- No 500mg Q.[id number] Take [address] [facility] (FLAGYL) 10-10- [id number] [facility] 500 MG 00:00: 00:00 3D (500 mg Medical tablet 00 :00 total) by Center mouth 3 (three) times daily. levoFLOXaci 2022-0 2022- No 750mg QD Take [address] [facility] [address] [facility] n 10-10-08 tablet [facility] (LEVAQUIN) 00:00: 00:00 (750 mg Med ical 750 MG 00 :00 total) by Center tablet mouth daily. metroNIDAZO 2022-0 2022- No 500mg Q.12089401 Take [address] [facility] (FLAGYL) 10-10 [id number] [facility] 500 MG 00:00: 00:00 3D (500 mg Medical tablet 00 :00 total) by Center mouth 3 (three) times daily. levoFLOXaci 2022-0 2022- No 750mg QD Take [address] [facility] [address] [facility] n 10-10 tablet [facility] (LEVAQUIN) 00:00: 00:00 (750 mg Med ical 750 MG 00 :00 total) by Center tablet mouth daily. metroNIDAZO 2-0 2022- No 500mg Q.[id number] Take [address] [facility] (FLAGYL) 10-10 [id number] [facility] 500 MG 00:00: 00:00 3D (500 mg Medical tablet 00 :00 total) by Center mouth 3 (three) times daily. levoFLOXaci 2-0 2021- No 750mg QD Take [address] [facility] [address] [facility] n 10-10 tablet [facility] (LEVAQUIN) 00:00: 00:00 (750 mg Med ical 750 MG 00 :00 total) by Center tablet mouth daily. metroNIDAZO 2-0 2- No 500mg Q.[id number] Take [address] [facility] (FLAGYL) 10-10 [id number] [facility] 500 MG 00:00: 00:00 3D [...] mouth Center daily for 30 days. methocarbam 2021-0 2021- No 1000mg Q.25D Take [...] days. Max Daily Amount: 1 mg morphine 2021-2021- No 15mg Take [address] [facility] (MSIR) [...] .5mg Take [facility] (ATIVAN[facility] -10 11-03 [facility] 0.5 MG 00:00: 23:59 (0.5 [...] 1000mg Q.25D Take [address] [facility] oL -10 11-03 tablets [facility] (ROBAXIN) 00:00: 23:59 (1,000 mg [...] 1000mg Q.25D Take [address] [facility] oL - 06-03 tablets [facility] (ROBAXIN) 00:00: 23:59 (1,000 mg Me dical 500 MG 00 :00 total) by Center tablet mouth 4 (four) times daily for 10 days. LORazepam 2022-0 2022- No .5mg [facility] 1 [facility] (ATIVAN[facility] - 06-03 [facility] 0.5 MG 00:00: 23:59 (0.5 mg Medical tablet 00 :00 total) by Center mouth 2 (two) times daily as needed for Anxiety for up to 10 days. Max Daily Amount: 1 mg morphine 2022-0 2022- No 15mg Take [address] [facility] (MSIR) 15 -10 11-03 tablet (15 Jody es MG tablet 00:00: 23:59 mg total) Me dical 00 :00 by mouth Center every 4 (four) hours as needed for up to 10 days. Max Daily Amount: 90 mg methocarbam 2022-0 2022- No 1000mg Q.25D Take [address] [facility] oL -10 11-03 tablets [facility] (ROBAXIN) 00:00: 23:59 (1,000 mg [...] 1000mg Q.25D Take [address] [facility] oL - 06-03 tablets [facility] (ROBAXIN) 00:00: 23:59 (1,000 mg [...] Amount: 90 mg sulfamethox 2021- No 160mg{t Q.[id number] Take [address] [facility] azole-trime 09-25 rimetho [id number] tablet [facility] thoprim 00:00: 00:00 prim} 3W (160 mg of Me dical (BACTRIM 00 :00 trimethopr Cente r DS) 800-160 im total) mg per by mouth 3 tablet (three) times a week I. sulfamethox 2021- No 160mg{t Q.[id number] Take [address] [facility] azole-trime 09-25 rimetho [id number] tablet [facility] thoprim 00:00: 00:00 prim} 3W (160 mg of Me dical (BACTRIM 00 :00 trimethopr Cente r DS) 800-160 im total) mg per by mouth 3 tablet (three) times a week I. sulfamethox 2021- No 160mg{t Q.[id number] Take [address] [facility] azole-trime 09-25 rimetho [id number] tablet [facility] thoprim 00:00: 00:00 prim} 3W (160 mg of Me dical (BACTRIM 00 :00 trimethopr Cente r DS) 800-160 im total) mg per by mouth 3 tablet (three) times a week SAT/ I. sulfamethox 2021- No 160mg{t Q.[id number] Take [address] [facility] azole-trime 09-25 rimetho [id number] tablet [facility] thoprim 00:00: 00:00 prim} 3W (160 mg of Me dical (BACTRIM 00 :00 trimethopr Cente r DS) 800-160 im total) mg per by mouth 3 tablet (three) times a week I. sulfamethox 2021- No 160mg{t Q.[id number] Take [address] [facility] azole-trime 09-25- rimetho [id number] tablet [facility] thoprim 00:00: 00:00 prim} 3W (160 mg of Me dical (BACTRIM 00 :00 trimethopr Cente r DS) 800-160 im total) mg per by mouth 3 tablet (three) times a week I. sulfamethox 2021- No 160mg{t Q.[id number] Take [address] [facility] azole-trime 09-25- rimetho [id number] tablet [facility] thoprim 00:00: 00:00 prim} 3W [...] al injection 00 :00 Center predniSONE 2021-0 2022- No 80mg QD Take [address] [facility] (DELTASONE) 5-24 tablets Luke [facility] 20 MG 00:00: 00:00 (80 mg Medical tablet 00 :00 total) by Center mouth daily for 10 days. furosemide 2021-0 2021- No 40mg QD Take [address] [facility] (LASIX) 40 09-23-24 tablet (40 Jessica kes MG tablet 00:00: 00:00 mg total) Me dical 00 :00 by mouth Center daily. insulin NPH 2021-0 2021- No Use as [facility] (HumuLIN N) 09-23 directed. Jessica kes 100 unit/mL 00:00: 00:00 Medic al injection 00 :00 [facility] predniSONE 2021-0 2022- No 80mg QD Take [address] [facility] [...] Medic al injection 00 :00 Center predniSONE 2-0 2022- No 80mg QD Take [address] [facility] (DELTASONE) 09-23-24 tablets Luke s 20 MG 00:00: 00:00 (80 mg Medical tablet 00 :00 total) by Center mouth daily for 10 days. furosemide 2021-0 2- No 40mg QD Take [address] [facility] (LASIX) 40 09-23-24 tablet (40 Jessica kes MG tablet 00:00: 00:00 mg total) Me dical 00 :00 by mouth Center daily. insulin NPH 2021-0 2021- No Use as [facility] (HumuLIN N) 09-23 directed. Jessica kes 100 unit/mL 00:00: 00:00 Medic al injection 00 :00 [facility] predniSONE 2021-0 2021- No 80mg QD Take [...] 00:00: 00:00 Medic al injection 00 :00 [facility] predniSONE 2021-0 2021- No 80mg QD Take [...] 00:00: 00:00 Medic al injection 00 :00 [facility] predniSONE 2021-0 2021- No 5mg QD Take [address] [facility] (DELTASONE) 09-22- by mouth Jody es 5 MG tablet 16:07: 00:00 daily. Med ical 21 :00 [facility] CARVEDILOL 2021-2021- No Take by [facility] 09-22- [facility] 21 :00 [facility] tramadol 2021-2021- No [facility] (TRAMADOL 16:07: 00:00 Medical ORAL) 21 :00 [facility] predniSONE 2021-0 2021- No 5mg QD Take [address] [facility] (DELTASONE) 5-06 05-06 by mouth Jody es 5 MG tablet 16:07: 00:00 daily. Med ical 21 :00 [facility] CARVEDILOL 2021-0 2021- No Take by [facility] ORAL 5-06 05-06 [facility] 16:[facility] 21 :00 [facility] tramadol 2021-0 2021- No [facility] (TRAMADOL 16:07: 00:00 Medical ORAL) 21 :00 [facility] predniSONE 2021-0 2021- No 5mg QD Take [address] [facility] (DELTASONE) 5-06 05-06 by mouth Jody es 5 MG tablet 16:07: 00:00 daily. Med ical 21 :00 [facility] CARVEDILOL 2021-0 2021- No Take by [facility] 5-06 05-06 [facility] 16[facility]: [facility]00 [facility] 21 :00 [facility] tramadol 2021-0 2021- No [facility] (TRAMADOL 16:07: 00:00 Medical ORAL) 21 :00 [facility] predniSONE 2-0 2021- No 5mg QD Take [address] (DELTASONE) 5- 05-06 by mouth Jody es 5 MG tablet 16:07: 00:00 daily. Med ical 21 :00 [facility] CARVEDILOL 2021-0 2021- No Take by [facility] 5-06 05-06 [facility] 16:07: 00:00 Medical 21 :00 [facility] tramadol 2021-0 2021- No [facility] (TRAMADOL 16:07: 00:00 Medical ORAL) 21 :00 [facility] predniSONE 2-0 2021- No 5mg QD Take [address] (DELTASONE) 5-06 05-06 by mouth Jody es 5 MG tablet 16:07: 00:00 daily. Med ical 21 :00 [facility] CARVEDILOL 2021-0 2021- No Take by [facility] 5-06 05-06 [facility]. [facility] 16:07: 00:00 Medical 21 :00 [facility] tramadol 2021-0 2021- No [facility]-06 05-[facility] (TRAMADOL 16:07: 00:00 Medical ORAL) 21 :00 [facility] predniSONE 2021- No 5mg QD Take [address] (DELTASONE) 09-22-06 by mouth Jody es 5 MG tablet 16:07: 00:00 daily. Med ical 21 :00 [facility] CARVEDILOL 2021- No Take by [facility] 09-22-06 [facility]. [facility] 16:07: 00:00 Medical 21 :00 [facility] tramadol 2021- No Take [facility] 09-22-06 [facility] (TRAMADOL 16:07: 00:00 Medical ORAL) 21 :00 [facility] calcium 2022- No 2{tbl} Q.[id number] Take [address] [facility] carbonate-v 09-22- [id number] tablets by [facility] itamin D3 00:00: 23:59 3D mouth 3 Medi doreen (OSCAL-D) 00 :00 (three) Center 500 times mg(1,250mg) daily. -200 unit per tablet cholestyram 2022- No 1{packe Q.5D Take [address] [facility] ine 09-22- t} packet by [facility] (QUESTRAN) 00:00: 23:59 mouth 2 Med ical 4 gram PwPk 00 :00 (two) Center packet times daily. clotrimazol 2022- No Q.5D Apply [facility] 09-22-06 topically [facility] (LOTRIMIN) 00:00: 23:59 2 (two) Med ical 1 % cream 00 :00 times Center daily. gabapentin 2022- No 400mg Q.[id number] Take [address] [facility] (NEURONTIN) 09-22-06 [id number] capsule [facility] 400 MG 00:00: 23:59 3D (400 mg Medical capsule 00 :00 total) by Center mouth 3 (three) times daily. hydrOXYchlo 2022- No 200mg Q.5D Take [address] roQUINE 09-22 05-06 tablet [facility] (PLAQUENIL) 00:00: 23:59 (200 mg Me dical 200 mg 00 :00 total) by Center tablet mouth 2 (two) times daily. metoprolol 2022- No 25mg Q.5D Take [address] [facility] tartrate 5- 05-06 tablet (25 [facility] (LOPRESSOR) 00:00: 23:59 mg total) Medical 25 MG 00 :00 by mouth 2 Center tablet (two) times daily. pancrelipas 2022- No [id number]{ Take [address] [facility] e, 5-06 05-06 lipase} capsules [facility] Lip-Prot-Am 00:00: 23:59 (72,000 Me dical yl, (CREON) 00 :00 units of Cent er 24,000-76,0 lipase 00 -120,000 total) by unit CpDR mouth 3 capsule (three) times daily with meals. calcium 2022- No 2{tbl} Q.[id number] Take [address] [facility] carbonate-v 5- 05-06 [id number] tablets by [facility] itamin D3 00:00: 23:59 3D mouth 3 Medi doreen (OSCAL-D) 00 :00 (three) Center 500 times mg(1,250mg) daily. -200 unit per tablet pancrelipas 2022- No [id number]{ Take [address] [facility] e, 5-06 05-06 lipase} capsules [facility] Lip-Prot-Am 00:00: 23:59 (72,000 Me dical yl, (CREON) 00 :00 units of Cent er 24,000-76,0 lipase 00 -120,000 total) by unit CpDR mouth 3 capsule (three) times daily with meals. calcium 2022- No 2{tbl} Q.[id number] Take [address] [facility] carbonate-v 5-06 05-06 [id number] tablets by [facility] itamin D3 00:00: 23:59 3D mouth 3 Medi doreen (OSCAL-D) 00 :00 (three) Center 500 times mg(1,250mg) daily. -200 unit per tablet pancrelipas 2022- No [id number]{ Take [address] [facility] e, 5-06 05-06 lipase} capsules [facility] Lip-Prot-Am 00:00: 23:59 (72,000 Me dical yl, (CREON) 00 :00 units of Cent er 24,000-76,0 lipase 00 -120,000 total) by unit CpDR mouth 3 capsule (three) times daily with meals. calcium 2022- No 2{tbl} Q.[id number] Take [address] [facility] carbonate-v 5-06 05-06 [id number] tablets by [facility] itamin D3 00:00: 23:59 3D mouth 3 Medi doreen (OSCAL-D) 00 :00 (three) Center 500 times mg(1,250mg) daily. -200 unit per tablet pancrelipas 2022- No [id number]{ Take [address] [facility] e, 5-06 05-06 lipase} capsules [facility] Lip-Prot-Am 00:00: 23:59 (72,000 Me dical yl, (CREON) 00 :00 units of Cent er 24,000-76,0 lipase 00 -120,000 total) by unit CpDR mouth 3 capsule (three) times daily with meals. calcium 2022- No 2{tbl} Q.[id number] Take [address] [facility] carbonate-v 5-06 05-06 [id number] tablets by [facility] itamin D3 00:00: 23:59 3D mouth 3 Medi doreen (OSCAL-D) 00 :00 (three) Center 500 times mg(1,250mg) daily. -200 unit per tablet pancrelipas 2022- No [id number]{ Take [address] [facility] e, 5-06 05-06 lipase} capsules [facility] Lip-Prot-Am 00:00: 23:59 (72,000 Me dical yl, (CREON) 00 :00 units of Cent er 24,000-76,0 lipase 00 -120,000 total) by unit CpDR mouth 3 capsule (three) times daily with meals. calcium 2022- No 2{tbl} Q.[id number] Take [address] [facility] carbonate-v 5-06 05-06 [id number] tablets by [facility] itamin D3 00:00: 23:59 3D mouth 3 Medi doreen (OSCAL-D) 00 :00 (three) Center 500 times mg(1,250mg) daily. -200 unit per tablet pancrelipas 2022- No [id number]{ Take [address] [facility] e, 5-06 05-06 lipase} capsules [facility] Lip-Prot-Am 00:00: 23:59 [...] needed for up to 360 days. acetaminoph 0 2022- No 650mg Take [address] en 09-2201 tablets [facility] (TYLENOL) 00:00: 23:59 (650 mg Medi doreen 325 MG 00 :00 total) by Center tablet mouth every 6 (six) hours as needed for up to 360 days. acetaminoph 0 2022- No 650mg Take [address] [facility] en 09-22 tablets [facility] (TYLENOL) 00:00: 23:59 (650 mg Medi doreen 325 MG 00 :00 total) by Center tablet mouth every 6 (six) hours as needed for up to 360 days. gabapentin 2021-2021- No 400mg Q.[id number] Take [address] [facility] (NEURONTIN) 09-22 [id number] capsule [facility] 400 MG 00:00: 00:00 3D (400 mg Medical capsule 00 :00 total) by Center mouth 3 (three) times daily. hydrOXYchlo 2022-0 2022- No 200mg Q.5D Take [address] roQUINE - 10-24 tablet [facility] (PLAQUENIL) 00:00: 00:00 (200 mg Me dical 200 mg 00 :00 total) by Center tablet mouth 2 (two) times daily. metoprolol 2022-0 2022- No 25mg Q.5D Take [address] [facility] [address] tartrate 09-22-24 tablet (25 [facility] (LOPRESSOR) 00:00: 00:00 mg total) Medical 25 MG 00 :00 by mouth 2 Center tablet (two) times daily. gabapentin 2021-0 2022- No 400mg Q.[id number] Take [address] [facility] (NEURONTIN) 09-22 [id number] capsule [facility] 400 MG 00:00: 00:00 3D (400 mg Medical capsule 00 :00 total) by Center mouth 3 (three) times daily. hydrOXYchlo 2022-0 2022- No 200mg Q.5D Take [address] roQUINE 09-22-24 tablet [facility] (PLAQUENIL) 00:00: 00:00 (200 mg Me dical 200 mg 00 :00 total) by Center tablet mouth 2 (two) times daily. metoprolol 2022-0 2022- No 25mg Q.5D Take [address] [facility] [address] tartrate 09-2224 tablet (25 [facility] (LOPRESSOR) 00:00: 00:00 mg total) Medical 25 MG 00 :00 by mouth 2 Center tablet (two) times daily. gabapentin 2022-0 2022- No 400mg Q.[id number] Take [address] [facility] (NEURONTIN) 09-22- [id number] capsule [facility] 400 MG 00:00: 00:00 3D (400 mg Medical capsule 00 :00 total) by Center mouth 3 (three) times daily. hydrOXYchlo 2022-0 2022- No 200mg Q.5D Take [address] roQUINE - 10-24 tablet [facility] (PLAQUENIL) 00:00: 00:00 (200 mg Me dical 200 mg 00 :00 total) by Center tablet mouth 2 (two) times daily. metoprolol 2021-0 2021- No 25mg Q.5D Take [address] [facility] tartrate 5- 10-24 tablet (25 [facility] (LOPRESSOR) 00:00: 00:00 mg total) Medical 25 MG 00 :00 by mouth 2 Center tablet (two) times daily. gabapentin 2021-0 2021- No 400mg Q.[id number] Take [address] [facility] (NEURONTIN) 5- 10-24 [id number] capsule [facility] 400 MG 00:00: 00:00 3D (400 mg Medical capsule 00 :00 total) by Center mouth 3 (three) times daily. hydrOXYchlo 2021-2021- No 200mg Q.5D Take [address] roQUINE 5- 10-24 tablet [facility] (PLAQUENIL) 00:00: 00:00 (200 mg Me dical 200 mg 00 :00 total) by Center tablet mouth 2 (two) times daily. metoprolol 2021-2021- No 25mg Q.5D Take [address] [facility] [address] tartrate 5- 10-24 tablet (25 [facility] (LOPRESSOR) 00:00: 00:00 mg total) Medical 25 MG 00 :00 by mouth 2 Center tablet (two) times daily. gabapentin 2021-2021- No 400mg Q.[id number] Take [address] [facility] (NEURONTIN) 5 10-24 [id number] capsule [facility] 400 MG 00:00: 00:00 3D (400 mg Medical capsule 00 :00 total) by Center mouth 3 (three) times daily. hydrOXYchlo 2021-0 2021- No 200mg Q.5D Take [address] roQUINE 5- 10-24 tablet [facility] (PLAQUENIL) 00:00: 00:00 (200 mg Me dical 200 mg 00 :00 total) by Center tablet mouth 2 (two) times daily. metoprolol 2021-0 2021- No 25mg Q.5D Take [address] [facility] tartrate 5-06 10-24 tablet (25 [facility] (LOPRESSOR) 00:00: 00:00 mg total) Medical 25 MG 00 :00 by mouth 2 Center tablet (two) times daily. cholestyram 2021-2021- No 1{packe Q.5D Take [address] [facility] ine 5-10 26-25 t} packet by [facility] (ArgoPayRAN) 00:00: 00:00 mouth 2 Med ical 4 gram PwPk 00 :00 (two) Center packet times daily. clotrimazol 2021- No Q.5D Apply [facility] e 5-10 26-25 topically [facility] (LOTRIMIN) 00:00: 00:00 2 (two) Med ical 1 % cream 00 :00 times Center daily. cholestyram 2021- No 1{packe Q.5D Take [address] [facility] ine 5-10 26-25 t} packet by [employer] (ArgoPayRAN) 00:00: 00:00 mouth 2 Med ical 4 gram PwPk 00 :00 (two) Center packet times daily. clotrimazol 2021- No Q.5D Apply [facility] -10 26-25 topically [facility] (LOTRIMIN) 00:00: 00:00 2 (two) Med ical 1 % cream 00 :00 times Center daily. cholestyram 2021- No 1{packe Q.5D Take [address] [facility] ine -10 26-25 t} packet by [employer] (ArgoPayRAN) 00:00: 00:00 mouth 2 Med ical 4 gram PwPk 00 :00 (two) Center packet times daily. clotrimazol 2021- No Q.5D Apply [facility] -10 26-25 topically [facility] (LOTRIMIN) 00:00: 00:00 2 (two) Med ical 1 % cream 00 :00 times Center daily. cholestyram 2021- No 1{packe Q.5D Take [address] [facility] ine 5-10 26-25 t} packet by [employer] (QUESTRAN) 00:00: 00:00 mouth 2 Med ical 4 gram PwPk 00 :00 (two) Center packet times daily. clotrimazol 2021-2021- No Q.5D Apply [facility] 5-10 26-25 topically [facility] (LOTRIMIN) 00:00: 00:00 2 (two) Med ical 1 % cream 00 :00 times Center daily. cholestyram 2022-0 2022- No 1{packe Q.5D Take [address] [facility] ine 09-22 t} packet by [facility] (QUESTRAN) 00:00: 00:00 mouth 2 Med ical 4 gram PwPk 00 :00 (two) Center packet times daily. clotrimazol 2022-0 2022- No Q.5D Apply [facility] 09-22 topically [facility] (LOTRIMIN) 00:00: 00:00 2 (two) Med ical 1 % cream 00 :00 times Center daily. morphine 2022-0 2022- No 15mg Take [address] [facility] (MS CONTIN) 09-22-05 tablet (15 L ukes 15 MG 12 hr 00:00: 23:59 mg total) Medical tablet 00 :00 by mouth Center every 8 (eight) hours for 30 days. Max Daily Amount: 45 mg morphine 2022-0 2022- No 15mg Take [address] [facility] (MS CONTIN) 09-22-05 tablet (15 L ukes 15 MG 12 hr 00:00: 23:59 mg total) Medical tablet 00 :00 by mouth Center every 8 (eight) hours for 30 days. Max Daily Amount: 45 mg morphine 2022-0 2022- No 15mg Take [address] [facility] (MS CONTIN) 09-22-05 tablet (15 L ukes 15 MG 12 hr 00:00: 23:59 mg total) Medical tablet 00 :00 by mouth Center every 8 (eight) hours for 30 days. Max Daily Amount: 45 mg morphine 2022-0 2022- No 15mg Take [address] [facility] (MS CONTIN) 09-22 06-05 tablet (15 L ukes 15 MG 12 hr 00:00: 23:59 mg total) Medical tablet 00 :00 by mouth Center every 8 (eight) hours for 30 days. Max Daily Amount: 45 mg morphine 2022-0 2022- No 15mg Take [address] [facility] (MS CONTIN) 09-22 06-05 tablet (15 L ukes 15 MG 12 hr 00:00: 23:59 mg total) Medical tablet 00 :00 by mouth Center every 8 (eight) hours for 30 days. Max Daily Amount: 45 mg morphine 2022-0 2022- No 15mg Take [address] [facility] (MS CONTIN) 09-22 06-05 tablet (15 L ukes 15 MG 12 hr 00:00: 23:59 mg total) Medical tablet 00 :00 by mouth Center every 8 (eight) hours for 30 days. Max Daily Amount: 45 mg insulin NPH 2021- No Use as [facility] (HumuLIN N) 09-22 directed. Jessica kes 100 unit/mL 00:00: 00:00 Medic al injection 00 :00 Center loperamide 2021- No 4mg Q.[id number] Take [address] [facility] (IMODIUM) 2 09-22 [id number] capsules [facility] mg capsule 00:00: 00:00 3D [...] 00:00: 00:00 Medic al injection 00 :00 [facility] loperamide 2021- No 4mg Q.[id number] Take [address] [facility] (IMODIUM) 2 09-22 [id number] capsules [facility] mg capsule 00:00: 00:00 3D [...] 00:00: 00:00 Medic al injection 00 :00 [facility] loperamide 2021- No 4mg Q.[id number] Take [address] [facility] (IMODIUM) 2 09-22 [id number] capsules [facility] mg capsule 00:00: 00:00 3D [...] 00:00: 00:00 Medic al injection 00 :00 [facility] loperamide 2021- No 4mg Q.[id number] Take [address] [facility] (IMODIUM) 2 09-22 [id number] capsules [facility] mg capsule 00:00: 00:00 3D [...] 00:00: 00:00 Medic al injection 00 :00 [facility] loperamide 2021- No 4mg Q.[id number] Take [address] [facility] (IMODIUM) 2 09-22 [id number] capsules [facility] mg capsule 00:00: 00:00 3D [...] injection 00 :00 Center loperamide No 4mg Q.[id number] Take [address] [facility] (IMODIUM) 2 09-22 [id number] capsules [facility] mg capsule 00:00: 00:00 3D [...] days. Max Daily Amount: 60 mg simethicone 80mg Q.25D Take [address] (MYLICON) 09-2224 tablet (80 Jody es 80 MG 00:00: 00:00 mg total) Medica l chewable 00 :00 by mouth 4 Cente r tablet (four) times daily for 10 days. Vital Signs Vital Name Observation Time Observation Value Comments Source HEIGHT 2022-05-26 13:38:00 172.7 cm WEIGHT 2022-05-26 13:38:00 99.791 kg HEIGHT 2022-05-26 02:32:00 172.7 cm HEIGHT 2022-05-26 13:38:00 172.7 cm WEIGHT 2022-05-26 13:38:00 99.791 kg HEIGHT 2022-05-26 02:32:00 172.7 cm HEIGHT 2022-05-26 13:38:00 172.7 cm WEIGHT 2022-05-26 13:38:00 99.791 kg HEIGHT 2022-05-26 02:32:00 172.7 cm Systolic blood 2022-03-18 21:00:00 139 mm[Hg] [facility] Diastolic blood 2022-03-18 21:00:00 91 mm[Hg] Unive rs[facility] Heart rate 2022-03-18 21:00:00 84 /min [facility] Body temperature 2022-03-18 21:00:00 37.06 Lori [facility] Respiratory rate 2022-03-18 21:00:00 18 /min [facility] Oxygen saturation in 2022-03-18 21:00:00 97 /min [facility] Arterial blood by [facility] Pulse oximetry Branch Body height 2022-03-16 07:07:00 172.7 cm [facility] Body weight 2022-03-16 07:07:00 99.791 kg [facility] BMI 2022-03-16 07:07:00 33.46 kg/m2 [facility] Systolic blood 2022-03-14 23:00:00 176 mm[Hg] Univer sity of pressure [facility] Diastolic blood 2022-03-14 23:00:00 124 mm[Hg] [facility]ive rsity of [facility] Heart rate 2022-03-14 23:00:00 108 /min [facility] Oxygen saturation in 2022-03-14 23:00:00 99 /min [facility] Arterial blood by [facility] Pulse oximetry Branch Respiratory rate 2022-03-14 22:00:00 20 /min [facility] Body temperature 2022-03-14 18:22:00 37.5 Lori [facility] Body height 2022-03-14 18:22:00 172.7 cm [facility] Body weight 2022-03-14 18:22:00 99.791 kg [facility] BMI 2022-03-14 18:22:00 33.45 kg/m2 [facility] HEIGHT 2022-03-08 19:00:00 172.7 cm WEIGHT 2022-03-08 [...] WEIGHT 2021-08-26 16:00:00 95.845 kg Systolic blood 2022-06-05 12:04:00 119 mm[Hg] [facility] Diastolic blood 2022-06-05 12:04:00 60 mm[Hg] [facility] Heart rate 2022-06-05 12:04:00 88 /min [facility] Body temperature 2022-06-05 12:04:00 36.56 Lori [facility] Respiratory rate 2022-06-05 12:04:00 18 /min [facility] Oxygen saturation in 2022-06-05 12:04:00 96 /min [facility] Arterial blood by Medical Ce nter Pulse oximetry Body height 2022-05-26 13:38:00 172.7 cm [facility] Body weight 2022-05-26 13:38:00 99.791 kg [facility] BMI 2022-05-26 13:38:00 33.45 kg/m2 [facility] Systolic blood 2022-03-12 11:02:00 175 mm[Hg] [facility] Diastolic blood 2022-03-12 11:02:00 120 mm[Hg] [facility] Heart rate 2022-03-12 11:02:00 75 /min [facility] Body temperature 2022-03-12 11:02:00 36.78 Lori [facility] Respiratory rate 2022-03-12 11:02:00 18 /min [facility] Oxygen saturation in 2022-03-12 11:02:00 97 /min [facility] Arterial blood by Medical Ce nter Pulse oximetry Body height 2022-03-08 19:00:00 172.7 cm [facility] Body weight 2022-03-08 19:00:00 99.428 kg [facility] BMI 2022-03-08 19:00:00 33.33 kg/m2 [facility] Systolic blood 2021-12-25 15:25:00 123 mm[Hg] [facility] Diastolic blood 2021-12-25 15:25:00 76 mm[Hg] [facility] Heart rate 2021-12-25 15:25:00 103 /min [facility] Body temperature 2021-12-25 15:25:00 36.78 Lori [facility] Respiratory rate 2021-12-25 15:25:00 18 /min [facility] Oxygen saturation in 2021-12-25 15:25:00 95 /min [facility] Arterial blood by Medical Ce nter Pulse oximetry Body height 2021-12-07 12:30:00 172.7 cm [facility] Body weight 2021-12-07 12:30:00 95.255 kg [facility] BMI 2021-12-07 12:30:00 31.93 kg/m2 [facility] Procedures Procedure Date / Time Performing Clinician Source Performed POCT-GLUCOSE METER 2022-06-[address] [facility] 11:53:00 [facility] Center POCT-GLUCOSE METER 2022-06-05 Jay, Kayla Ann [facility] 09:21:00 [facility] MR ABDOMEN WITH & WITHOUT IV 2022-06-[address] [facility] CONTRAST 08:30:00 [facility] BASIC METABOLIC PANEL 2022-06-05 Arif, Melissa [facility] 04:04:00 [facility] Center CBC W/PLT COUNT & AUTO 2022-06-05 Arif, Melissa [facility] DIFFERENTIAL 04:04:00 [facility] Center MAGNESIUM 2022-06-05 Arif, Melissa [facility] 04:04:00 [facility] Center CBC W/PLT COUNT & AUTO 2022-06-05 Arif, Melissa [facility] DIFFERENTIAL 04:04:00 [facility] Center POCT-GLUCOSE METER 2022-06-[address] [facility] 21:21:00 [facility] Center POCT-GLUCOSE METER 2022-06-[address] [facility] 17:02:00 [facility] Center POCT-GLUCOSE METER 2022-06-[address] [facility] 11:46:00 [facility] Center POCT-GLUCOSE METER 2022-06-[address] [facility] 08:09:00 [facility] BASIC METABOLIC PANEL 2022-06-04 Arif, Melissa [facility]ID [facility] 05:19:00 [facility] Center CBC W/PLT COUNT & AUTO 2022-06-04 Arif, Melissa [facility] DIFFERENTIAL 05:19:00 [facility] Center MAGNESIUM 2022-06-04 Arif, Miker [facility] 05:19:00 [facility] Center CBC W/PLT COUNT & AUTO 2022-06-04 Arif, Miker [facility] DIFFERENTIAL 05:19:00 [facility] Center POCT-GLUCOSE METER 2022-06-[address] [facility] 22:31:00 [facility] Center POCT-GLUCOSE METER 2022-06-[address] [facility] 16:39:00 [facility] Center POCT-GLUCOSE METER 2022-06-[address] [facility] 11:32:00 [facility] Center POCT-GLUCOSE METER 2022-06-[address] [facility] 07:47:00 [facility] Center BASIC METABOLIC PANEL 2022-06-03 Arif, Miker [facility] 03:48:00 [facility] Center CBC W/PLT COUNT & AUTO 2022-06-03 Arif, Miker [facility] DIFFERENTIAL 03:48:00 [facility] Center MAGNESIUM 2022-06-03 Arif, Sahar [facility] 03:48:00 [facility] Center CBC W/PLT COUNT & AUTO 2022-06-03 Arif, Miker [facility] DIFFERENTIAL 03:48:00 [facility] Center POCT-GLUCOSE METER 2022-06-02 Jay, Kaylavandana Rooney [facility] 21:17:00 [facility] Center POCT-GLUCOSE METER 2022-06-02 Jay, Kayla Rooney [facility] 16:48:00 [facility] Center POCT-GLUCOSE METER 2022-06-[address] [facility] [facility] 11:30:00 [facility] Center POCT-GLUCOSE METER 2022-06-02 Jay, Kayla Rooney [facility] 07:07:00 [facility] SARS-COV2/RT-PCR ([facility] REF 2022-06-02 Vernell Gonzalez [facility] LABS) 06:10:00 [facility] POCT-GLUCOSE METER 2022-06-02 Jay, Kayla Rooney [facility] 02:11:00 [facility] Center BASIC METABOLIC PANEL 2022-06-02 Arif, Melissa [facility]ID [facility] 02:09:00 [facility] Center CBC W/PLT COUNT & AUTO 2022-06-02 Arif, Miker [facility] DIFFERENTIAL 02:09:00 [facility] Center MAGNESIUM 2022-06-02 Arif, Sahar [facility] 02:09:00 [facility] Center CBC W/PLT COUNT & AUTO 2022-06-02 Arif, Miker [facility] DIFFERENTIAL 02:09:00 [facility] Center POCT-GLUCOSE METER 2022-06-01 Jay Kayla Nevin [facility] 11:48:00 [facility] Center CT ABDOMEN/PELVIS WITH IV 2022-06-01 Kayla Thompson [facility] CONTRAST 11:12:00 [facility] Center POCT-GLUCOSE METER 2022-06-[address] [facility] 07:44:00 [facility] Center BASIC METABOLIC PANEL 2022-06-01 Arif, Miker [facility] 03:52:00 Medical Center CBC W/PLT COUNT & AUTO 2022-06-01 Arif, Miker [facility] DIFFERENTIAL 03:52:00 Medical Center MAGNESIUM 2022-06-01 Arif, Miker [facility] 03:52:00 [facility] Center CBC W/PLT COUNT & AUTO 2022-06-01 Arif, Melissa [facility]ID [facility] DIFFERENTIAL 03:52:00 [facility] Center POCT-GLUCOSE METER 2022-05-31 Jay Kayladallin Rooney [facility] 22:26:00 [facility] Center POCT-GLUCOSE METER 2022-05-31 Jay Kayla Nevin [facility] 16:11:00 [facility] Center POCT-GLUCOSE METER 2022-05-31 Jay, Kayla Ann [facility] 11:22:00 [facility] Center POCT-GLUCOSE METER 2022-05-31 Jay, Kayla Ann [facility] 07:05:00 [facility] Center BASIC METABOLIC PANEL 2022-05-31 Arif, Melissa [facility]ID [facility] 04:59:00 [facility] Center CBC W/PLT COUNT & AUTO 2022-05-31 Arif, Melissa [facility]ID [facility] DIFFERENTIAL 04:59:00 Medical Center MAGNESIUM 2022-05-31 Arif, Miker [facility] 04:59:00 Medical Center CBC W/PLT COUNT & AUTO 2022-05-31 Arif, Miker [facility] DIFFERENTIAL 04:59:00 [facility] Center CREATININE, RANDOM URINE 2022-05-31 [facility] 01:35:00 [facility] Center POCT-GLUCOSE METER 2022-05-30 Jay [address]allin Rooney [facility] 20:42:00 [facility] Center POCT-GLUCOSE METER 2022-05-30 Jay Kayladallin Rooney [facility] 15:52:00 Medical Center POCT-GLUCOSE METER 2022-05-[address] [facility] 10:52:00 Medical Center POCT-GLUCOSE METER 2022-05-[address] [facility] 07:51:00 Medical Center BASIC METABOLIC PANEL 2022-05-30 Arif, Miker [facility] 03:[facility]00 [facility] CBC W/PLT COUNT & AUTO 2022-05-30 Arif, Sahar [facility] DIFFERENTIAL 03:44:00 [facility] MAGNESIUM 2022-05-30 Arif, Sahar [facility] 03:44:00 [facility] CBC W/PLT COUNT & AUTO 2022-05-30 Arif, Sahar [facility] DIFFERENTIAL 03:44:00 [facility] POCT-GLUCOSE METER 2022-05-29 Arif, Sahar [facility] 22:32:00 Medical Center PROTEIN, RANDOM URINE 2022-05-29 Arif, Miker [facility] 17:34:00 [facility] BASIC METABOLIC PANEL 2022-05-29 Arif, Miker [facility] 04:37:00 [facility] CBC W/PLT COUNT & AUTO 2022-05-29 Arif, Miker [facility] DIFFERENTIAL 04:37:00 [facility] MAGNESIUM 2022-05-29 Arif, Miker [facility] 04:37:00 [facility] T SPOT TB 2022-05-29 Arif, Miker [facility] 04:37:00 [facility] CBC W/PLT COUNT & AUTO 2022-05-29 Arif, Miker [facility] DIFFERENTIAL 04:37:00 [facility] POCT-GLUCOSE METER 2022-05-28 Arif, Sahar [facility] 22:30:00 [facility] HEMOGLOBIN A1C 2022-05-28 Arif, Sahar [facility] 04:29:00 [facility] BASIC METABOLIC PANEL 2022-05-28 Arif, Sahar [facility] 04:29:00 [facility] CBC W/PLT COUNT & AUTO 2022-05-28 Arif, Sahar [facility] DIFFER[facility] 04:29:00 [facility] MAGNESIUM 2022-05-28 Arif, Sahar [facility] 04:29:00 [facility] CBC W/PLT COUNT & AUTO 2022-05-28 Arif, Melissa [facility] DI[facility] 04:29:00 [facility] POCT-GLUCOSE METER 2022-05-27 Arif, Sahar [facility] 20:43:00 [facility] POCT-GLUCOSE METER 2022-05-27 Arif, Sahar [facility] 16:27:00 [facility] POCT-GLUCOSE METER 2022-05-27 Arif, Sahar [facility] 10:53:00 [facility] POCT-GLUCOSE METER 2022-05-27 Arif, Sahar [facility] 06:55:00 [facility] PHOSPHORUS 2022-05-[address] [facility] 03:31:00 [facility] BASIC METABOLIC PANEL 2022-05-27 Arif, Miker [facility] 03:31:00 [facility] CBC W/PLT COUNT & AUTO 2022-05-27 Arif, Melissa [facility] DI[facility] 03:31:00 [facility] MAGNESIUM 2022-05-27 Arif, Sahar [facility] 03:31:00 [facility] CBC W/PLT COUNT & AUTO 2022-05-27 Arif, Melissa [facility] DIFFERENTIAL 03:31:00 [facility] POCT-GLUCOSE METER 2022-05-26 Arif, Sahar [facility] 21:22:00 [facility] POCT-GLUCOSE METER 2022-05-26 Arif, Sahar [facility] 16:23:00 [facility] US ABDOMEN LIMITED 2022-05-26 Vernell Gonzalez [facility] 16:02:00 [facility] POCT-GLUCOSE METER 2022-05-26 Arif, Miker [facility] 12:43:00 [facility] SARS-COV2/RT-PCR ([facility] & REF 2022-05-[address] [facility] 10:24:00 [facility] URINALYSIS W/ MICROSCOPIC 2022-05-[address] [facility] 10:21:00 [facility] COMPREHENSIVE METABOLIC 2022-05-26 Vernell Gonzalez CHI PANEL 10:21:00 [facility] CBC W/PLT COUNT & AUTO 2022-05-26 [facility] 10:21:00 [facility] CBC W/PLT COUNT & AUTO 2022-05-[address] [facility] DIFFERENTIAL 10:21:00 [facility] COMPLEMENT COMPONENT C4 2022-05-26 Hay, Arnulfo [facility] 05:45:00 [facility] DOUBLE-STRANDED DNA (DSDNA) 2022-05-26 Hay, Arnulfo [facility] ANTIBODY 05:45:00 [facility] ANTI-NUCLEAR ANTIBODY (STU) 2022-05-26 Hay, Arnulfo [facility] 05:45:00 [facility] FERRITIN 2022-05-26 Hay, Arnulfo [facility] 05:45:00 [facility] IRON, TIBC, % SAT. (WITHOUT 2022-05-26 Hay, Arnulfo [facility] FERRITIN) 05:45:00 [facility] ANTI-DNA TITER 2022-05-26 Hay, Arnulfo [facility] 05:45:00 [facility] STU TITER AND PATTERN 2022-05-26 Hay, Arnulfo [facility] 05:45:00 [facility] MAGNESIUM 2022-03-18 [facility] 11:41:00 [facility] BASIC METABOLIC PANEL (NA, 2022-03-18 Negra [facility] K, CL, CO2, GLUCOSE, BUN, 11:41:00 [facility] CREATININE, [place]) CBC WITH DIFF 2022-03-18 [facility] 11:41:[address] [facility] [address] HEAD WO CONTRAST 2022-03-17 [facility] [place] 13:50:56 [facility] MAGNESIUM 2022-03-17 [facility] 10:39[facility]00 [facility] HEPATIC FUNCTION PANEL 2022-03-17 [id number] (ALB,T.PRO,BILI 10:39:00 [facility] T,BU/BC,ALT,AST,ALK PHOS) BASIC METABOLIC PANEL (NA, 2022-03-17 Darrel [facility] K, CL, CO2, GLUCOSE, BUN, 10:39:00 [facility] CREATININE, [place]) CBC WITH DIFF 2022-03-17 [facility] xas 10:39:00 [facility] PROTHROMBIN TIME / INR 2022-03-16 Regino [facility] 22:57:00 [facility] LIPASE 2022-03-16 Ree [facility] xas 11:00:00 [facility] MAGNESIUM 2022-03-16 Ree [facility] xas 11:00:00 [facility] BASIC METABOLIC PANEL (NA, 2022-03-16 Ree [facility] K, CL, CO2, GLUCOSE, BUN, 11:00:00 [facility] CREATININE, [place]) CBC WITH DIFF 2022-03-16 Jayy [facility] xa 11:00:00 [facility] MRSA / MSSA SCREEN BY PCR, 2022-03-16 [facility] 07:32:00 [facility] HOSPITAL ADMISSION 2022-03-16 Doctor Unassigned, [facility] 05:01:00 [facility] LACTIC ACID WHOLE BLOOD 2022-03-14 [facility] 22:10:00 [facility] URINALYSIS 2022-03-14 [facility] 20:43:[address] ABDOMEN PELVIS W CONTRAST 2022-03-14 Singer [facility] 20:28:55 [facility] LACTIC ACID WHOLE BLOOD 2022-03-14 [facility] 19:56:00 [facility] LIPASE 2022-03-14 [facility] 19:55:00 [facility] COMP. METABOLIC PANEL 2022-03-14 [id number] 19:55:00 [facility] CBC WITH DIFF 2022-03-14 [facility] 19:55:00 [facility] NOTICE OF PRIVACY PRACTICES 2022-03-14 Doctor Unassigned, [facility] 18:09:38 [facility] CBC (HEMOGRAM ONLY) 2022-03-12 [address] Hern[facility]dez [facility] 05:05:00 [facility] BASIC METABOLIC PANEL 2022-03-12 Alex Hernández [facility] 05:05:[address] [facility] [address] ABDOMEN/PELVIS WITH IV 2022-03-11 Alex Hern[facility]dez Post [facility] CONTRAST 00:26:00 [facility] CBC W/PLT COUNT & AUTO 2022-03-10 Abiodun, Silvio [facility]onsantana [facility] DIFFERENTIAL 04:22:00 [facility] BASIC METABOLIC PANEL 2022-03-10 Abiodun, Ahmed Nasif [facility] 04:22:00 [facility] CBC W/PLT COUNT & AUTO 2022-03-10 Abiodun, Silvio Mckeonsantana [facility] DIFFERENTIAL 04:22:00 [facility] XR CHEST 1 VIEW PORTABLE / 2022-03-06 Abiodun, Silvio Mahednra [facility] BEDS[facility] 15:10:[address] [facility] [address] ABDOMEN/PELVIS WITH IV 2022-03-[address] [facility] CONTRAST 08:41:00 [facility] [place] ASPIRATION OR INJECTION 2022-02-27 Lyle Wisdom [facility] 15:05:00 [facility] MR LOWER EXTREMITY JOINT 2022-02-[address] [facility] ONLY WITHOUT IV CONTRAST 14:00:00 [facility] LEFT COMPREHENSIVE METABOLIC 2022-02-[address] [facility] PANEL 22:25:00 [facility] GI PATHOGEN PROFILE BY PCR 2022-02-24 Marco Antonio Correiamojennifer [facility] 15:10:00 [facility] XR HIP 2 VIEWS BILATERAL 2022-02-24 Cy [facility]reia [facility] 08:03:00 [facility] XR HIP 2 VIEWS BILATERAL 2022-02-24 yC Correia [facility] 08:03:00 [facility] C. DIFFICILE GDH TOXIN 2022-02-24 Masood Marco Antoniomojennifer [facility] 03:00:00 [facility] BLOOD CULTURE 2022-02-[address] [facility] 14:00:00 [facility] BLOOD CULTURE 2022-02-[address] [facility] 05:15:00 [facility] URINE CULTURE 2022-02-[address] [facility] 05:10:00 [facility] PERMANENT LAB REPORT - SCAN 2022-02-18 Provider, Default [facility] 00:00:00 [facility] EKG-SCANNED 2022-02-18 Provider, Jonelle [facility] 00:00:00 [facility] COMPLEMENT COMPONENT C4 2022-02-11 Maganti, Lynette [facility] 12:36:00 [facility] DOUBLE-STRANDED DNA (DSDNA) 2022-02-11 Maganti, Lynette [facility] ANTIBODY 12:36:00 [facility] MAGNESIUM 2022-02-11 Orlyjennifer, Demetris [facility] 04:08:00 [facility] PHOSPHORUS 2022-02-11 Aribindi, Demetris [facility] 04:08:00 [facility] CBC W/PLT COUNT & AUTO 2022-02-[address] [facility] DIFFERENTIAL 04:08:00 [facility] BASIC METABOLIC PANEL 2022-02-[address] [facility] 04:08:00 [facility] CBC W/PLT COUNT & AUTO 2022-02-[address] [facility] [facility] DIFFERENTIAL 04:08:00 [facility] CBC W/PLT COUNT & AUTO 2022-02-10 Eli, Irina [facility] DI[facility] 05:06:00 [facility] BASIC METABOLIC PANEL 2022-02-10 Eli, Irina [facility] 05:06:00 [facility] CBC W/PLT COUNT & AUTO 2022-02-10 Eli, Irina [facility] DI[facility] 05:06:00 [facility] MAGNESIUM 2022-02-09 Orlyi, Demetris [facility] 03:57:00 [facility] PHOSPHORUS 2022-02-09 Aribindi, Demetris [facility] 03:57:00 [facility] CBC W/PLT COUNT & AUTO 2022-02-09 Eli, Irina [facility] 03:57:00 [facility] BASIC METABOLIC PANEL 2022-02-09 Eli, Irina [facility] 03:57:00 [facility] CBC W/PLT COUNT & AUTO 2022-02-09 Eli, Irina [facility] 03:57:00 [facility] CBC W/PLT COUNT & AUTO [address] [facility] [facility] DIFFERENTIAL 09:54:00 [facility] BASIC METABOLIC PANEL [address] [facility] 09:54:00 [facility] MAGNESIUM [address] [facility] 09:54:00 [facility] PHOSPHORUS [address] [facility] 09:54:00 [facility] CBC W/PLT COUNT & AUTO [address] [facility] [facility] DIFFERENTIAL 09:54:00 [facility] FUNGUS CULTURE + SMEAR 2022-02-[address] [facility] [facility] 14:34:00 [facility] SURGICALLY OBTAINED CULTURE 2022-02-[address] [facility] + GRAM STAIN 14:34:00 [facility] ANAEROBIC CULTURE 2022-02-07 Lissette, Amado [facility] 14:34:00 [facility] AFB CULTURE + SMEAR 2022-02-[address] [facility] (NON-SPUTUM) 14:34:00 [facility] SPIN/CONCENTRATION CHARGE 2022-02-07 Lissette, Amado [facility] 14:34:00 [facility] ANESTHESIA PERIPHERAL BLOCK 2022-02-07 Hallie, Christopher [facility] 13:15:39 [facility] ANESTHESIA PERIPHERAL BLOCK 2022-02-07 Hallie, Christopher [facility] 13:13:20 [facility] LAPAROTOMY, EXPLORATORY 2022-02-[address] [facility] 12:47:00 [facility] BASIC METABOLIC PANEL 2022-02-07 Marcbindi, Demetris [facility] 03:34:00 [facility] MAGNESIUM 2022-02-07 Aribindi, Demetris [facility] 03:34:00 [facility] PHOSPHORUS 2022-02-07 Aribindi, Demetris [facility] 03:34:00 [facility] CBC W/PLT COUNT & AUTO 2022-02-07 Aribindi, Demetris [facility] DIFFER[facility] 03:34:00 [facility] PROTHROMBIN TIME/INR 2022-02-[address] [facility] 03:34:00 [facility] CBC W/PLT COUNT & AUTO 2022-02-07 Galo, Shama Juliuskati [facility] DIFFERENTIAL 03:34:00 [facility] SARS-COV2/RT-PCR (HS & REF 2022-02-06 Gonzalo [address] [facility] 20:08:00 [facility] TYPE AND SCREEN, AUTOMATED 2022-02-[address] [facility] 20:08:00 [facility] XR CHEST 1 VIEW PORTABLE / 2022-02-[address] [facility] BEDSIDE 18:34:[address] [facility] [address] ABDOMEN/PELVIS WITH IV 2022-02-05 Negrito, Lexx [facility] CONTRAST 11:11:00 [facility] CBC W/PLT COUNT & AUTO 2022-02-[address] [facility] DIFFERENTIAL 04:05:00 [facility] BASIC METABOLIC PANEL 2022-02-05 [facility] 04:05:00 [facility] MAGNESIUM 2022-02-[address] [facility] 04:05:00 [facility] PHOSPHORUS 2022-02-[address] [facility] 04:05:00 [facility] CBC W/PLT COUNT & AUTO 2022-02-[address] [facility] DIFFERENTIAL 04:05:00 [facility] POCT-GLUCOSE METER 2022-02-[address] [facility] 07:24:00 [facility] CBC W/PLT COUNT & AUTO 2022-02-[address] [facility] DIFFERENTIAL 04:22:00 [facility] BASIC METABOLIC PANEL 2022-02-[address] [facility] 04:22:00 [facility] PHOSPHORUS 2022-02-[address] [facility] 04:22:00 [facility] CBC W/PLT COUNT & AUTO 2022-02-[address] [facility] DIFFERENTIAL 04:22:00 [facility] POCT-GLUCOSE METER 2022-02-[address] [facility] 18:06:00 [facility] REPORT OF PROCEDURE - 2022-02-02 Willard, Shawn [facility] ENDOSCOPY URL 12:46:[address] [facility] [place] FLUORO NON-SPECIFIC UP TO 2022-02-02 Willard, Shawn [facility] 1 HOUR 12:15:[address] [facility] [place] ESOPHAGOSCOPY, WITH 2022-02-02 Willard, Shawn [facility] ENDOSCOPIC ULTRASOUND 11:27:00 [facility] PROCEDURE W/ C-ARM 2022-02-02 Willard, Shawn [facility] 11:27:[address] [facility] [place] CBC W/PLT COUNT & AUTO 2022-02-[address] [facility] DIFFERENTIAL 04:41:00 [facility] BASIC METABOLIC PANEL 2022-02-[address] [facility] 04:41:00 [facility] PHOSPHORUS 2022-02-[address] [facility] 04:41:00 [facility] PROTHROMBIN TIME/INR 2022-02-[address] [facility] 04:41:00 [facility] CBC W/PLT COUNT & AUTO 2022-02-[address] [facility] DIFFERENTIAL 04:41:00 [facility] SARS-COV2/RT-PCR ([facility] & REF 2022-02-[address] [facility]S) 08:33:00 [facility] CBC W/PLT COUNT & AUTO 2022-02-[address] [facility] DIFFERENTIAL 05:24:00 [facility] BASIC METABOLIC PANEL 2022-02-[address] [facility] 05:24:00 [facility] PHOSPHORUS 2022-02-[address] [facility] 05:24:00 [facility] PROTHROMBIN TIME/INR 2022-02-[address] [facility] 05:24:00 [facility] CBC W/PLT COUNT & AUTO 2022-02-[address] [facility] DIFFERENTIAL 05:24:00 [facility] CBC W/PLT COUNT & AUTO 2022-01-[address] [facility] DIFFERENTIAL 05:51:00 [facility] BASIC METABOLIC PANEL 2022-01-[address] [facility] 05:51:00 [facility] PHOSPHORUS 2022-01-[address] [facility] 05:51:00 [facility] CBC W/PLT COUNT & AUTO 2022-01-[address] [facility] DIFFERENTIAL 05:51:[address] [facility] [address] ABDOMEN/PELVIS WITH IV 2022-01-[address] [facility] CONTRAST 20:16:00 [facility] CBC W/PLT COUNT & AUTO 2022-01-[address] [facility] DIFFERENTIAL 06:07:00 [facility] BASIC METABOLIC PANEL 2022-01-30 Frantz Sánchez [facility] 06:07:00 [facility] PHOSPHORUS 2022-01-30 Frantz Sánchez [facility] 06:07:00 [facility] CBC W/PLT COUNT & AUTO 2022-01-[address] [facility] DIFFERENTIAL 06:07:00 [facility] CBC W/PLT COUNT & AUTO 2022-01-29 Ali, Hiba Ned [facility] DIFFER[facility] 04:24:00 [facility] BASIC METABOLIC PANEL 2022-01-29 Ali, Hiba Ned [facility] 04:24:00 [facility] PHOSPHORUS 2022-01-29 Ali, Hiba Ned [facility] 04:24:00 [facility] CBC W/PLT COUNT & AUTO 2022-01-29 Ali, Hiba Ned [facility] DIFFER[facility] 04:24:00 [facility] CBC W/PLT COUNT & AUTO 2022-01-[address] [facility] DIFFERENTIAL 14:51:00 [facility] BASIC METABOLIC PANEL 2022-01-28 Ali, Hiba Ned [facility] 14:51:00 [facility] PHOSPHORUS 2022-01-28 Ali, Hiba Ned [facility] 14:51:00 [facility] CBC W/PLT COUNT & AUTO 2022-01-[address] [facility] DIFFERENTIAL 14:51:00 [facility] COMPREHENSIVE METABOLIC 2022-01-27 Nalam, Nilsa Gladys [facility] PANEL 05:23:00 [facility] MAGNESIUM 2022-01-27 Nalam, Nilsa Gladys [facility] 05:23:00 [facility] CBC W/PLT COUNT & AUTO 2022-01-27 Nalam, Nilsa Gladys [facility] DIFFERENTIAL 05:23:00 [facility] PHOSPHORUS 2022-01-[address] [facility] 05:23:00 [facility] CBC W/PLT COUNT & AUTO 2022-01-27 Nalam, Nilsa Gladys [facility] DIFFERENTIAL 05:23:00 [facility] SARS-COV2/RT-PCR (HS & REF 2022-01-26 Aribindi, Demetris [facility]S) 19:44:00 [facility] XR KNEE 3 VIEWS RIGHT 2022-01-[address] [facility] 12:47:00 [facility] COMPLEMENT COMPONENT C3 2022-01-26 Nalam, Nilsa Gladys [facility] 04:38:00 [facility] DOUBLE-STRANDED DNA (DSDNA) 2022-01-26 Nalam, Nilsa Gladys [facility] ANTIBODY 04:38:00 [facility] COMPREHENSIVE METABOLIC 2022-01-26 Nalam, Nilsa Gladys [facility] PANEL 04:38:00 [facility] MAGNESIUM 2022-01-26 Nalam, Nilsa Gladys [facility] 04:38:00 [facility] CBC W/PLT COUNT & AUTO 2022-01-26 Nalam, Nilsa Gladys [facility] DIFFERENTIAL 04:38:00 [facility] PHOSPHORUS 2022-01-[address] [facility] 04:38:00 [facility] HEMOGLOBIN A1C 2022-01-26 Nalam, Nilsa Gladys [facility] 04:38:00 [facility] ANTI-DNA TITER 2022-01-26 Nalam, Nilsa Gladys [facility] 04:38:00 [facility] CBC W/PLT COUNT & AUTO 2022-01-26 Nalam, Nilsa Gladys [facility] DIFFERENTIAL 04:38:00 [facility] URINALYSIS W/ MICROSCOPIC 2022-01-25 Nalam, Nilsa Gladys [facility] 22:19:00 [facility] PROTHROMBIN TIME/INR 2022-01-25 Nalam, Nilsa Gladys [facility] 10:28:00 [facility] CBC W/PLT COUNT & AUTO 2022-01-[address] [facility] DIFFERENTIAL 06:40:00 [facility] BASIC METABOLIC PANEL 2022-01-25 Arteaga Gricelda Josie [facility] 06:40:00 [facility] PT/APTT 2022-01-25 Arte[address]a [facility] 06:40:00 [facility] LACTIC ACID, VENOUS 2022-01-25 Arteaga Gricelda Hessssa [facility] 06:40:00 [facility] HEPATIC FUNCTION PANEL 2022-01-25 Nalam, Nilsa Gladys [facility] 06:40:00 [facility] MAGNESIUM 2022-01-25 Nalam, Nilsa Gladys [facility] 06:40:00 [facility] PHOSPHORUS 2022-01-25 Nalam, Nilsa Gladys [facility] 06:40:00 [facility] TYPE AND SCREEN, AUTOMATED 2022-01-25 Gricelda Arteaga Josie [facility] 06:40:00 [facility] CBC W/PLT COUNT & AUTO 2022-01-25 Gricelda Arteaga Josie [facility] DIFFERENTIAL 06:40:00 [facility] EKG-SCANNED 2022-01-[address] [facility] 00:00:00 Scanning [facility] BASIC METABOLIC PANEL 2021-12-25 Arif, Sahar [facility] 04:08:00 [facility] CBC W/PLT COUNT & AUTO 2021-12-25 Alex Hern[facility]dez [facility] DIFFERENTIAL 04:08:00 [facility] CBC W/PLT COUNT & AUTO 2021-12-25 Alex Hern[facility]dez [facility] DIFFERENTIAL 04:08:00 [facility] SARS-COV2/RT-PCR ([facility] & REF 2021-12-[address] [facility] LABS) 16:21:00 [facility] BASIC METABOLIC PANEL 2021-12-[address] [facility] [facility] 03:16:00 [facility] CBC W/PLT COUNT & AUTO 2021-12-24 Alex Hern[facility]dez [facility] DIFFERENTIAL 03:16:00 [facility] CBC W/PLT COUNT & AUTO 2021-12-24 Alex Hern[facility]dez [facility] DIFFERENTIAL 03:16:00 [facility] BASIC METABOLIC PANEL 2021-12-23 Arif, Sahar [facility] 03:08:00 [facility] CBC W/PLT COUNT & AUTO 2021-12-23 Alex Hern[facility]dez Post [facility] DIFFERENTIAL 03:08:00 [facility] CBC W/PLT COUNT & AUTO 2021-12-23 Alex Hernández Post [facility] DIFFERENTIAL 03:08:00 [facility] BASIC METABOLIC PANEL 2021-12-22 Ari, Sahar [facility] 03:56:00 [facility] CBC W/PLT COUNT & AUTO 2021-12-22 EdgarAlex alvarez Post [facility] DIFFERENTIAL 03:56:00 [facility] COMPLEMENT COMPONENT C4 2021-12-[address] [facility] 03:56:00 [facility] CBC W/PLT COUNT & AUTO 2021-12-22 Alex Hernández Post [facility] DIFFERENTIAL 03:56:00 [facility] BASIC METABOLIC PANEL 2021-12-21 [facility] 05:21:00 [facility] CBC W/PLT COUNT & AUTO 2021-12-21 Alex Hernández Post [facility] DIFFERENTIAL 05:21:00 [facility] CBC W/PLT COUNT & AUTO 2021-12-21 EdgarAlex alvarez Post [facility] DIFFERENTIAL 05:21:00 [facility] CT ABDOMEN/PELVIS WITH IV 2021-12-20 ArabellaaSuhail [facility] CONTRAST 06:25:00 [facility] BASIC METABOLIC PANEL 2021-12-20 Ari, [facility] 04:59:00 [facility] MAGNESIUM 2021-12-20 Arif, Sahar [facility] 04:59:00 [facility] CBC W/PLT COUNT & AUTO 2021-12-20 EdgarAlex alvarez Post [facility] DIFFERENTIAL 04:59:00 [facility] CBC W/PLT COUNT & AUTO 2021-12-20 EdgarAlex alvarez Post [facility] DIFFERENTIAL 04:59:00 [facility] BASIC METABOLIC PANEL 2021-12-19 Arif, Sahar [facility] 04:42:00 [facility] MAGNESIUM 2021-12-19 Arif, Sahar [facility] 04:42:00 [facility] CBC W/PLT COUNT & AUTO 2021-12-19 EdgarAlex alvarez Post [facility] DIFFERENTIAL 04:42:00 [facility] CBC W/PLT COUNT & AUTO 2021-12-19 Edgar, Alex Post [facility] DIFFERENTIAL 04:42:00 [facility] BASIC METABOLIC PANEL 2021-12-18 Arif, Sahar [facility] 04:10:00 [facility] MAGNESIUM 2021-12-18 Arif, Sahar [facility] 04:10:00 [facility] CBC W/PLT COUNT & AUTO 2021-12-18 Edgar Alex Guerrero [facility] DIFFERENTIAL 04:10:00 [facility] CBC W/PLT COUNT & AUTO 2021-12-18 Edgar Alex Guerrero [facility] DIFFERENTIAL 04:10:00 [facility] SARS-COV2/RT-PCR ([facility] & REF 2021-12-17 [facility] 13:09:00 [facility] BASIC METABOLIC PANEL 2021-12-17 Ari[facility] 05:40:00 [facility] MAGNESIUM 2021-12-17 Arif, Miker [facility] 05:40:00 [facility] CBC W/PLT COUNT & AUTO 2021-12-17 Edgar Alex Guerrero [facility] DIFFERENTIAL 05:40:00 [facility] CREATINE KINASE (CK) 2021-12-17 Edgar Alex Guerrero [facility] 05:40:00 [facility] Center CBC W/PLT COUNT & AUTO 2021-12-17 Edgar Alex Guerrero [facility] DIFFERENTIAL 05:40:00 [facility] BASIC METABOLIC PANEL 2021-12-16 Ari, [facility] 04:54:00 [facility] MAGNESIUM 2021-12-16 Ari, Sahar [facility] [facility] 04[facility]54:00 [facility] HEPATIC FUNCTION PANEL 2021-12-16 Edgar Alex Guerrero [facility] 04:54:00 [facility] CBC W/PLT COUNT & AUTO 2021-12-16 Edgar Alex Post [facility] DIFFERENTIAL 04:54:00 [facility] CBC W/PLT COUNT & AUTO 2021-12-16 Edgar Alex Post [facility] DIFFERENTIAL 04:54:00 [facility] MAGNESIUM 2021-12-15 Arif, Sahar [facility] 12:00:00 [facility] BASIC METABOLIC PANEL 2021-12-15 Ari, Sahar [facility] CBC (HEMOGRAM ONLY) 2021-12-[address] [facility] 12:00:00 [facility] XR CHEST 1 VIEW PORTABLE / 2021-12-[address] [facility] BEDSIDE 10:17:00 [facility] MAGNESIUM 2021-12-15 Arif, Sahar [facility] 05:49:[address] [facility] [address] ABDOMEN/PELVIS WITH IV 2021-12-[address] [facility] CONTRAST 10:05:00 [facility] CBC W/PLT COUNT & AUTO 2021-12-14 Arif, Sahar [facility] DIFFERENTIAL 05:39:00 [facility] CBC W/PLT COUNT & AUTO 2021-12-14 Arif, Sahar [facility] DIFFERENTIAL 05:39:00 [facility] POCT-GLUCOSE METER 2021-12-[address] [facility] 07:29:00 [facility] BASIC METABOLIC PANEL 2021-12-13 Arif, Miker [facility] 07:06:00 [facility] MAGNESIUM 2021-12-13 Arif, Sahar [facility] 07:06:00 [facility] WOUND CULTURE + GRAM STAIN 2021-12-12 Arif, Sahar [facility] 18:11:00 [facility] CBC W/PLT COUNT & AUTO 2021-12-12 Arif, Miker [facility] DIFFERENTIAL 06:12:00 [facility] BASIC METABOLIC PANEL 2021-12-12 Arif, Sahar [facility] 06:12:00 [facility] MAGNESIUM 2021-12-12 Arif, Sahar [facility] 06:12:00 [facility] CBC W/PLT COUNT & AUTO 2021-12-12 Arif, Sahar [facility] DIFFERENTIAL 06:12:00 [facility] CT DRAINAGE W CATH PLACEMENT 2021-12-11 Arif, Sahar [facility] 18:10:00 [facility] BASIC METABOLIC PANEL 2021-12-11 Arif, Sahar [facility] 05:56:00 [facility] MAGNESIUM 2021-12-11 Arif, Sahar [facility] 05:56:00 [facility] CT ABDOMEN/PELVIS WITH IV 2021-12-[address] [facility] CONTRAST 13:21:00 [facility] SARS-COV2/RT-PCR (HS & REF 2021-12-10 Arif, Melissa [facility] 12:34:00 [facility] CBC W/PLT COUNT & AUTO 2021-12-10 Arif, Melissa [facility] DIFFERENTIAL 05:35:00 [facility] BASIC METABOLIC PANEL 2021-12-10 Arif, Melissa [facility] 05:35:00 [facility] MAGNESIUM 2021-12-10 Arif, Melissa [facility] 05:35:00 [facility] CBC W/PLT COUNT & AUTO 2021-12-10 Arif, Melissa [facility] DIFFERENTIAL 05:35:00 [facility] MISCELLANEOUS LAB ORDER 2021-12-09 Oscar Simonjevonjohnny Glaser [facility] 17:08:00 [facility] BASIC METABOLIC PANEL 2021-12-09 Arif, Melissa [facility] 04:11:00 [facility] MAGNESIUM 2021-12-09 Arif, Melissa [facility] 04:11:00 [facility] DOUBLE-STRANDED DNA (DSDNA) 2021-12-09 Arif, Melissa [facility] ANTIBODY 04:11:00 [facility] COMPLEMENT COMPONENT C4 2021-12-09 Arif, Melissa [facility] 04:11:00 [facility] PROTHROMBIN TIME/INR 2021-12-09 Arif, Melissa [facility] 04:11:00 [facility] ANTI-DNA TITER 2021-12-09 Arif, Melissa [facility] 04:11:00 [facility] URINALYSIS W/ MICROSCOPIC 2021-12-08 Robby, Mona Cesar [facility] 22:19:00 [facility] PROTEIN, RANDOM URINE 2021-12-08 [facility], Mona Cesar [facility] 22:18:00 [facility] CREATININE, RANDOM URINE 2021-12-08 [facility], [facility] Cesar [facility] 22:18:00 [facility] POCT-GLUCOSE METER 2021-12-08 Arif, Melissa [facility] 10:20:00 [facility] BASIC METABOLIC PANEL 2021-12-08 Adio, Titilola [facility]. [facility] 05:32:00 [facility] HEPATIC FUNCTION PANEL 2021-12-08 Adio, Titilola R. [facility] 05:32:00 [facility] LIPID PANEL 2021-12-08 Adio, Titilola R. [facility] 05:32:00 [facility] MAGNESIUM 2021-12-08 Adio, Titilola R. [facility] 05:32:00 [facility] PHOSPHORUS 2021-12-08 Adio, Titilola R. [facility] 05:32:00 [facility] CBC W/PLT COUNT & AUTO 2021-12-08 Adio, Titilola R. [facility] DIFFERENTIAL 05:32:00 [facility] HEMOGLOBIN A1C 2021-12-08 Adio, Titilola R. [facility] 05:32:00 [facility] CBC W/PLT COUNT & AUTO 2021-12-08 Adio, Titilola R. [facility] DIFFERENTIAL 05:32:00 [facility] BLOOD CULTURE 2021-12-07 Ozuna, Khushi [facility] 14:13:00 [facility] POCT-GLUCOSE METER 2021-12-07 Laith, Khushi [facility] 13:44:00 [facility] CBC W/PLT COUNT & AUTO 2021-12-07 Ozuna, Khushi [facility] DIFFERENTIAL 13:39:00 [facility] LACTIC ACID, VENOUS 2021-12-07 Ozuna, [facility]ushi [facility] 13:39:00 [facility] COMPREHENSIVE METABOLIC 2021-12-07 Ozuna, Khushi [facility] PANEL 13:39:00 [facility] PROTHROMBIN TIME/INR 2021-12-07 Laith, Khushi [facility] 13:39:00 [facility] APTT 2021-12-07 Ozuna, Khushi [facility] 13:39:00 [facility] LIPASE 2021-12-07 Ozuna, Khushi [facility] 13:39:00 [facility] CBC W/PLT COUNT & AUTO 2021-12-07 Ozuna, Khushi [facility] DIFFERENTIAL 13:39:00 [facility] BUN/CREATININE RATIO W/EGFR 2021-10-19 [facility] 13:53:50 Medicine POCT-GLUCOSE METER 2021-10-[address] [facility] 11:51:00 [facility] POCT-GLUCOSE METER 2021-10-[address] [facility] 07:14:00 [facility] BASIC METABOLIC PANEL 2021-10-[address] [facility] 05:42:00 [facility] HEPATIC FUNCTION PANEL 2021-10-[address] [facility] 05:42:00 [facility] MAGNESIUM 2021-10-[address] [facility] 05:42:00 [facility] PHOSPHORUS 2021-10-[address] [facility] 05:42:00 [facility] CBC W/PLT COUNT & AUTO 2021-10-[address] [facility] DIFFERENTIAL 05:42:00 [facility] CBC W/PLT COUNT & AUTO 2021-10-[address] [facility] DIFFERENTIAL 05:42:00 [facility] POCT-GLUCOSE METER 2021-10-[address] [facility] 21:53:00 [facility] POCT-GLUCOSE METER 2021-10-[address] [facility] 16:39:00 [facility] POCT-GLUCOSE METER 2021-10-[address] [facility] 11:35:00 [facility] BASIC METABOLIC PANEL 2021-10-[address] [facility] 11:05:00 [facility] HEPATIC FUNCTION PANEL 2021-10-[address] [facility] 11:05:00 [facility] MAGNESIUM 2021-10-[address] [facility] 11:05:00 [facility] PHOSPHORUS 2021-10-09 Francesca, [facility] 11:05:00 [facility] CBC W/PLT COUNT & AUTO 2021-10-[address] [facility] DIFFERENTIAL 11:05:00 [facility] CBC W/PLT COUNT & AUTO 2021-10-[address] [facility] DIFFERENTIAL 11:05:00 [facility] POCT-GLUCOSE METER 2021-10-[address] [facility] 09:25:00 [facility] POCT-GLUCOSE METER 2021-10-[address] [facility] 20:30:00 [facility] SARS-COV2/RT-PCR (HS & REF 2021-10-[address] [facility] 19:22:00 [facility] POCT-GLUCOSE METER 2021-10-[address] [facility] 17:32:00 [facility] POCT-GLUCOSE METER 2021-10-[address] [facility] 11:58:00 [facility] POCT-GLUCOSE METER 2021-10-[address] [facility] 08:40:00 [facility] BASIC METABOLIC PANEL 2021-10-[address] [facility] 04:39:00 [facility] HEPATIC FUNCTION PANEL 2021-10-[address] [facility] 04:39:00 [facility] MAGNESIUM 2021-10-[address] [facility] 04:39:00 [facility] PHOSPHORUS 2021-10-[address] [facility] 04:39:00 [facility] CBC W/PLT COUNT & AUTO 2021-10-[address] [facility] DIFFERENTIAL 04:39:00 [facility] CBC W/PLT COUNT & AUTO 2021-10-[address] [facility] DIFFERENTIAL 04:39:00 [facility] POCT-GLUCOSE METER 2021-10-[address] [facility] 21:29:00 [facility] POCT-GLUCOSE METER 2021-10-[address] [facility] 16:23:00 [facility] POCT-GLUCOSE METER 2021-10-[address] [facility] 10:54:00 [facility] POCT-GLUCOSE METER 2021-10-[address] [facility] 07:37:00 [facility] BASIC METABOLIC PANEL 2021-10-[address] [facility] 04:03:00 [facility] HEPATIC FUNCTION PANEL 2021-10-[address] [facility] 04:03:00 [facility] MAGNESIUM 2021-10-[address] [facility] 04:03:00 [facility] PHOSPHORUS 2021-10-[address] [facility] 04:03:00 [facility] POCT-GLUCOSE METER 2021-10-[address] [facility] 21:21:00 [facility] POCT-GLUCOSE METER 2021-10-[address] [facility] 16:37:00 [facility] POCT-GLUCOSE METER 2021-10-[address] [facility] 12:35:00 [facility] BASIC METABOLIC PANEL 2021-10-[address] [facility] 05:03:00 [facility] HEPATIC FUNCTION PANEL 2021-10-[address] [facility] [facility] 05:03:00 [facility] MAGNESIUM 2021-10-[address] [facility] 05:03:00 [facility] PHOSPHORUS 2021-10-[address] [facility] 05:03:00 [facility] CBC W/PLT COUNT & AUTO 2021-10-[address] [facility] DIFFERENTIAL 05:03:00 [facility] CBC W/PLT COUNT & AUTO 2021-10-[address] [facility] DIFFERENTIAL 05:03:00 [facility] POCT-GLUCOSE METER 2021-10-[address] [facility] 21:08:00 [facility] POCT-GLUCOSE METER 2021-10-[address] [facility] 16:19:00 [facility] POCT-GLUCOSE METER 2021-10-[address] [facility] 11:23:00 [facility] POCT-GLUCOSE METER 2021-10-[address] [facility] 07:50:00 [facility] MAGNESIUM 2021-10-[address] [facility] 06:03:00 [facility] PHOSPHORUS 2021-10-[address] [facility] 06:03:00 [facility] CBC W/PLT COUNT & AUTO 2021-10-[address] [facility] DIFFERENTIAL 06:03:00 [facility] CBC W/PLT COUNT & AUTO 2021-10-[address] [facility] DIFFERENTIAL 06:03:00 [facility] BASIC METABOLIC PANEL 2021-10-[address] [facility] 06:03:00 [facility] HEPATIC FUNCTION PANEL 2021-10-[address] [facility] 06:03:00 [facility] SARS-COV2/RT-PCR ([facility] & REF 2021-10-[address] [facility]) 05:55:00 [facility] POCT-GLUCOSE METER 2021-10-[address] [facility] 21:11:00 [facility] POCT-GLUCOSE METER 2021-10-[address] [facility] 17:22:00 [facility] POCT-GLUCOSE METER 2021-10-[address] [facility] 11:19:00 [facility] CBC W/PLT COUNT & AUTO 2021-10-[address] [facility] DIFFERENTIAL 05:54:00 [facility] BASIC METABOLIC PANEL 2021-10-[address] [facility] 05:54:00 [facility] HEPATIC FUNCTION PANEL 2021-10-[address] [facility] 05:54:00 [facility] MAGNESIUM 2021-10-[address] [facility] 05:54:00 [facility] PHOSPHORUS 2021-10-[address] [facility] 05:54:00 [facility] CBC W/PLT COUNT & AUTO 2021-10-[address] [facility] DIFFERENTIAL 05:54:00 [facility] POCT-GLUCOSE METER 2021-10-[address] [facility] 16:36:00 [facility] POCT-GLUCOSE METER 2021-10-[address] [facility] 11:34:00 [facility] POCT-GLUCOSE METER 2021-10-[address] [facility] 04:57:00 [facility] BASIC METABOLIC PANEL 2021-10-[address] [facility] 04:52:00 [facility] HEPATIC FUNCTION PANEL 2021-10-[address] [facility] [facility] 04:52:00 [facility] MAGNESIUM 2021-10-[address] [facility] 04:52:00 [facility] CBC (HEMOGRAM ONLY) 2021-10-[address] [facility] 04:52:00 [facility] PHOSPHORUS 2021-10-[address] [facility] 04:52:00 [facility] BASIC METABOLIC PANEL 2021-10-[address] [facility] 20:40:00 [facility] CBC (HEMOGRAM ONLY) 2021-10-[address] [facility] 20:40:00 [facility] MAGNESIUM 2021-10-[address] [facility] 20:40:00 [facility] PHOSPHORUS 2021-10-[address] [facility] 20:40:00 [facility] POCT-GLUCOSE METER 2021-10-[address] [facility] 19:37:00 [facility] RRL CRITICAL LABS 2021-10-02 Lissette, Amado [facility] (ABG,NA,K,H&H,GLUCOSE) 17:55:12 [facility] enter CALCIUM, IONIZED 2021-10-02 Lissette, Amado [facility] 17:55:12 [facility] BLOOD GAS, ARTERIAL 2021-10-02 Lissette, Amado [facility] 17:55:12 [facility] SODIUM NA-STAT LAB 2021-10-02 Lissette, Amado [facility] 17:55:12 [facility] POTASSIUM-STAT LAB 2021-10-02 Lissette, Amado [facility] 17:55:12 [facility] GLUCOSE-STAT LAB 2021-10-02 Lissette, Amado [facility] 17:55:12 [facility] HGB/HCT (H&H) - STAT LAB 2021-10-[address] [facility] 17:55:12 [facility] FUNGUS CULTURE + SMEAR 2021-10-[address] [facility] 17:47:00 [facility] SURGICALLY OBTAINED CULTURE 2021-10-[address] [facility] + GRAM STAIN 17:47:00 [facility] ANAEROBIC CULTURE 2021-10-[address] [facility] 17:47:00 [facility] AFB CULTURE + SMEAR 2021-10-[address] [facility] (NON-SPUTUM) 17:47:00 [facility] WASHOUT, ABDOMINAL CAVITY 2021-10-[address] [facility] 16:47:00 [facility] POCT-GLUCOSE METER 2021-10-[address] [facility] 15:51:00 [facility] VANCOMYCIN LEVEL, TROUGH 2021-10-[address] [facility] 13:39:00 [facility] POCT-GLUCOSE METER 2021-10-[address] [facility] 10:50:00 [facility] POCT-GLUCOSE METER 2021-10-[address] [facility] 07:17:00 [facility] BASIC METABOLIC PANEL 2021-10-[address] [facility] 05:48:00 [facility] HEPATIC FUNCTION PANEL 2021-10-[address] [facility] 05:48:00 [facility] MAGNESIUM 2021-10-[address] [facility] 05:48:00 [facility] CBC (HEMOGRAM ONLY) 2021-10-[address] [facility] 05:48:00 [facility] PHOSPHORUS 2021-10-[address] [facility] 05:48:00 [facility] POCT-GLUCOSE METER 2021-10-[address] [facility] 21:35:00 [facility] POCT-GLUCOSE METER 2021-10-[address] [facility] 16:42:00 [facility] SARS-COV2/RT-PCR ([facility] & REF 2021-10-[address] [facility] 14:49:00 [facility] TYPE AND SCREEN, AUTOMATED 2021-10-[address] [facility] 14:48:00 [facility] POCT-GLUCOSE METER 2021-10-[address] [facility] 12:11:00 [facility] 2D ECHO W/ DOPPLER 2021-10-[address] [facility] (CW/PW/COLOR) 09:32:46 [facility] CT ABD/PELVIS - PANCREAS 2021-10-01 [address]ty [address] [facility] EVALUATION 07:54:00 [facility] BASIC METABOLIC PANEL 2021-10-[address] [facility] 04:54:00 [facility] HEPATIC FUNCTION PANEL 2021-10-[address] [facility] 04:54:00 [facility] MAGNESIUM 2021-10-[address] [facility] 04:54:00 [facility] CBC (HEMOGRAM ONLY) 2021-10-[address] [facility] 04:54:00 [facility] PHOSPHORUS 2021-10-[address] [facility] 04:54:00 [facility] PREPARE LEUKO-REDUCED RBC 2021-09-[address] [facility] 23:54:00 [facility] POCT-GLUCOSE METER 2021-09-[address] [facility] 22:32:00 [facility] BLOOD CULTURE 2021-09-[address] [facility] 20:24:00 [facility] BLOOD CULTURE 2021-09-[address] [facility] 20:23:00 [facility] POCT-GLUCOSE METER 2021-09-[address] [facility] 17:01:00 [facility] POCT-GLUCOSE METER 2021-09-[address] [facility] 11:33:00 [facility] POCT-GLUCOSE METER 2021-09-[address] [facility] 07:38:00 [facility] DOUBLE-STRANDED DNA (DSDNA) 2021-09-[address] [facility] ANTIBODY 05:18:00 [facility] ANTI-DNA TITER 2021-09-[address] [facility] 05:18:00 [facility] COMPLEMENT COMPONENT C3 2021-09-[address] [facility] 01:32:00 [facility] VANCOMYCIN LEVEL, TROUGH 2021-09-30 Alex Hernández Yolanda [facility] 01:31:00 [facility] BASIC METABOLIC PANEL 2021-09-[address] [facility] 01:31:00 [facility] HEPATIC FUNCTION PANEL 2021-09-[address] [facility] 01:31:00 [facility] MAGNESIUM 2021-09-[address] [facility] 01:31:00 [facility] CBC (HEMOGRAM ONLY) 2021-09-[address] [facility] 01:31:00 [facility] PHOSPHORUS 2021-09-[address] [facility] 01:31:00 [facility] PREPARE LEUKO-REDUCED RBC 2021-09-[address] [facility] 23:54:00 [facility] POCT-GLUCOSE METER 2021-09-[address] [facility] 20:44:00 [facility] PROTEIN, RANDOM URINE 2021-09-[address] [facility] 17:45:00 [facility] CREATININE, RANDOM URINE 2021-09-[address] [facility] 17:45:00 [facility] URINALYSIS W/ MICROSCOPIC 2021-09-29 Kathy Fernandez [facility] 17:45:00 [facility] TRANSFUSE LEUKO-REDUCED RED 2021-09-29 Johnnykhtari, Carmen [facility] BLOOD CELLS 16:31:00 [facility] TRANSFUSE LEUKO-REDUCED RED 2021-09-29 Mokhtari, Carmen [facility] BLOOD CELLS 12:26:00 [facility] POCT-GLUCOSE METER 2021-09-[address] [facility] 08:03:00 [facility] BASIC METABOLIC PANEL 2021-09-[address] [facility] [facility] 05:09:00 [facility] HEPATIC FUNCTION PANEL 2021-09-[address] [facility] 05:09:00 [facility] MAGNESIUM 2021-09-[address] [facility] 05:09:00 [facility] CBC (HEMOGRAM ONLY) 2021-09-[address] [facility] 05:09:00 [facility] PHOSPHORUS 2021-09-[address] [facility] 05:09:00 [facility] PROTHROMBIN TIME/INR 2021-09-[address] [facility] 05:09:00 [facility] POCT-GLUCOSE METER 2021-09-[address] [facility] 20:39:00 [facility] ECG 12-LEAD 2021-09-28 Unknown, Hl7 Doctor [facility] 18:40:16 [facility] ECG 12-LEAD 2021-09-28 Unknown, Hl7 Doctor [facility] 18:40:16 [facility] ECG 12-LEAD 2021-09-28 Unknown, Hl7 Doctor [facility] 18:40:16 [facility] XR CHEST 1 VIEW PORTABLE / 2021-09-28 Carmen Knapp [facility] BEDSIDE 18:22:00 [facility] HEMOGLOBIN AND HEMATOCRIT 2021-09-28 Kathy Fernandez [facility] 17[facility]38:00 [facility] CT DRAINAGE ABDOMINAL 2021-09-[address] [facility] 16:51:00 [facility] AMYLASE, BODY FLUID 2021-09-[address] [facility] 16:35:00 [facility] BODY FLUID CULTURE + GRAM 2021-09-28 Kathy Fernandez [facility] STAIN 16:34:00 [facility] ANAEROBIC CULTURE 2021-09-[address] [facility] 16:34:00 [facility] AMYLASE 2021-09-[address] [facility] 12:17:00 [facility] POCT-GLUCOSE METER 2021-09-[address] [facility] 12:09:00 [facility] TRANSFUSE LEUKO-REDUCED RED 2021-09-[address] [facility] BLOOD CELLS 08:37:00 [facility] POCT-GLUCOSE METER 2021-09-[address] [facility] 07:47:00 [facility] ABORH, MANUAL 2021-09-28 [address]u [facility] 07[facility]34[facility]00 [facility] TYPE AND SCREEN, AUTOMATED 2021-09-[address] [facility] 06:10:00 [facility] CBC W/PLT COUNT & AUTO 2021-09-28 [facility] 03:59:00 [facility] (CELLAVISION MANUAL DIFF) 2021-09-28 [facility] 03:59:00 [facility] BASIC METABOLIC PANEL 2021-09-28 [facility] 03:59:00 [facility] HEPATIC FUNCTION PANEL 2021-09-28 [facility] 03:59:00 [facility] PROTHROMBIN TIME/INR 2021-09-28 [facility] 03:59:00 [facility] MAGNESIUM 2021-09-28 [facility] 03:59:00 [facility] PHOSPHORUS 2021-09-28 [facility] 03:59:00 [facility] CBC W/PLT COUNT & AUTO 2021-09-28 [facility] DIFFER[facility] 03:59:00 [facility] LACTIC ACID, VENOUS 2021-09-28 [facility] 03:59:00 [facility] SARS-COV2/RT-PCR ([facility] & REF 2021-09-[address] [facility]) 02:17:00 [facility] CT ABDOMEN/PELVIS WITH IV 2021-09-[address] [facility] CONTRAST 23:04:00 [facility] CBC W/PLT COUNT & AUTO 2021-09-27 Edouard Kimmy R [facility] DIFFERENTIAL 21:35:00 [facility] (CELLAVISION MANUAL DIFF) 2021-09-27 Kimmy Nunn R [facility] 21:35:00 [facility] BLOOD CULTURE 2021-09-27 [address]ouard Kimmy R [facility] 21:35:00 [facility] BLOOD CULTURE IDENTIFICATION 2021-09-27 Harring, Kimmy R [facility] PANEL 21:35:00 [facility] CBC W/PLT COUNT & AUTO 2021-09-27 Edouard, Kimmy R [facility] DIFFERENTIAL 21:35:00 [facility] COMPREHENSIVE METABOLIC 2021-09-27 Edouard, Kimmy R [facility] PANEL 21:35:00 [facility] [facility] LIPASE 2021-09-27 Edouard, Kimmy R [facility] 21:35:00 [facility] LACTIC ACID, VENOUS 2021-09-27 Edouard, [facility]my [facility] 21:35:00 [facility] PROTHROMBIN TIME/INR 2021-09-27 Edouard, [facility] 21:35:00 [facility] XR CHEST 1 VIEW PORTABLE / 2021-09-27 Edouard Kimmy R [facility] 20:27:00 [facility] CRITICAL CARE 2021-09-27 Edouard Kimmy R [facility] 20:07:17 [facility] POCT-GLUCOSE METER 2021-09-22 Eli, Irina [facility] 16:25:00 [facility] FECAL LEUKOCYTES 2021-09-[address] [facility] 14:35:00 [facility] POCT-GLUCOSE METER 2021-09-22 Eli, Irina [facility] 11:27:00 [facility] POCT-GLUCOSE METER 2021-09-22 Eli, Irina [facility] 07:31:00 [facility] MAGNESIUM 2021-09-[address] [facility] 04:34:00 [facility] BASIC METABOLIC PANEL 2021-09-[address] [facility] 04:34:00 [facility] POCT-GLUCOSE METER 2021-09-21 Eli, Irina [facility] 21:58:00 [facility] POCT-GLUCOSE METER 2021-09-21 Eli, Irina [facility] 17:14:00 [facility] POCT-GLUCOSE METER 2021-09-21 Eli, Irina [facility] 11:42:00 [facility] POCT-GLUCOSE METER 2021-09-21 Eli, Irina [facility] 07:36:00 [facility] CBC W/PLT COUNT & AUTO 2021-09-[address] [facility] DIFFERENTIAL 04:27:00 [facility] MAGNESIUM 2021-09-21 Ukani, Nilam [facility] 04:27:00 [facility] COMPREHENSIVE METABOLIC 2021-09-[address] [facility] PANEL 04:27:00 [facility] CBC W/PLT COUNT & AUTO 2021-09-[address] [facility] DIFFERENTIAL 04:27:00 [facility] FERRITIN 2021-09-[address] [facility] 04:27:00 [facility] POCT-GLUCOSE METER 2021-09-20 Eli, Irina [facility] 22:54:00 [facility] POCT-GLUCOSE METER 2021-09-20 Eli, Irina [facility] 15:43:00 [facility] POCT-GLUCOSE METER 2021-09-20 Eli, Irina [facility] 11:26:00 [facility] POCT-GLUCOSE METER 2021-09-[address] [facility] 08:00:00 [facility] CBC W/PLT COUNT & AUTO 2021-09-[address] [facility] DIFFERENTIAL 03:44:00 [facility] MAGNESIUM 2021-09-20 Ukani, Nilam [facility] 03:44:00 [facility] COMPREHENSIVE METABOLIC 2021-09-[address] [facility] PANEL 03:44:00 [facility] CBC W/PLT COUNT & AUTO 2021-09-[address] [facility] DIFFERENTIAL 03:44:00 [facility] FERRITIN 2021-09-[address] [facility] 03:44:00 [facility] POCT-GLUCOSE METER 2021-09-[address] [facility] 22:13:00 [facility] POCT-GLUCOSE METER 2021-09-[address] [facility] 17:40:00 [facility] MAGNESIUM 2021-09-[address] [facility] 15:24:00 [facility] POCT-GLUCOSE METER 2021-09-[address] [facility] 13:28:00 [facility] POCT-GLUCOSE METER 2021-09-[address] [facility] 08:10:00 [facility] CBC W/PLT COUNT & AUTO 2021-09-[address] [facility] DIFFERENTIAL 05:35:00 [facility] SARS-COV2/RT-PCR ([facility] & REF 2021-09-[address] [facility]) 05:35:00 [facility] MAGNESIUM 2021-09-19 Ukani, Nilam [facility] 05:35:00 [facility] COMPREHENSIVE METABOLIC 2021-09-[address] [facility] PANEL 05:35:00 [facility] CBC W/PLT COUNT & AUTO 2021-09-[address] [facility] DIFFERENTIAL 05:35:00 [facility] FERRITIN 2021-09-[address] [facility] 05:35:00 [facility] POCT-GLUCOSE METER 2021-09-[address] [facility] 21:29:00 [facility] POCT-GLUCOSE METER 2021-09-[address] [facility] 16:56:00 [facility] POCT-GLUCOSE METER 2021-09-[address] [facility] 12:15:00 [facility] POCT-GLUCOSE METER 2021-09-[address] [facility] 08:35:00 [facility] CBC W/PLT COUNT & AUTO 2021-09-[address] [facility] DIFFERENTIAL 06:58:00 [facility] MAGNESIUM 2021-09-18 Ukani, Nilam [facility] 06:58:00 [facility] COMPREHENSIVE METABOLIC 2021-09-[address] [facility] PANEL 06:58:00 [facility] CBC W/PLT COUNT & AUTO 2021-09-[address] [facility] DIFFERENTIAL 06:58:00 [facility] POCT-GLUCOSE METER 2021-09-[address] [facility] 22:17:00 [facility] POCT-GLUCOSE METER 2021-09-[address] [facility] 17:06:00 [facility] POCT-GLUCOSE METER 2021-09-[address] [facility] 12:18:00 [facility] POCT-GLUCOSE METER 2021-09-[address] [facility] 07:52:00 [facility] CBC W/PLT COUNT & AUTO 2021-09-[address] [facility] DIFFERENTIAL 05:45:00 [facility] MAGNESIUM 2021-09-[address] [facility] 05:45:00 [facility] FERRITIN 2021-09-[address] [facility] 05:45:00 [facility] COMPREHENSIVE METABOLIC 2021-09-[address] [facility] PANEL 05:45:00 [facility] CBC W/PLT COUNT & AUTO 2021-09-[address] [facility] DIFFERENTIAL 05:45:00 [facility] CMV PCR, QUANTITATIVE 2021-09-[address] [facility] 05:45:00 [facility] GI PATHOGEN PROFILE BY PCR 2021-09-17 [address] [facility] 05:11:00 [facility] GIARDIA ANTIGEN 2021-09-[address] [facility] 05:05:00 [facility] OVA AND PARASITE EXAMINATION 2021-09-[address] [facility] 04:59:00 [facility] POCT-GLUCOSE METER 2021-09-[address] [facility] 22:07:00 [facility] POCT-GLUCOSE METER 2021-09-[address] [facility] 17:29:00 [facility] POCT-GLUCOSE METER 2021-09-[address] [facility] 11:35:00 [facility] POCT-GLUCOSE METER 2021-09-[address] [facility] 07:52:00 [facility] CBC W/PLT COUNT & AUTO 2021-09-16 Rose Lorenzo [facility] DIFFERENTIAL 06:50:00 [facility] MAGNESIUM 2021-09-[address] [facility] 06:50:00 [facility] CBC W/PLT COUNT & AUTO 2021-09-16 MauraFlacol CortneyAmanda [facility] DIFFERENTIAL 06:50:00 [facility] COMPREHENSIVE METABOLIC 2021-09-[address] [facility] PANEL 06:50:00 [facility] FERRITIN 2021-09-[address] [facility] 06:50:00 [facility] POCT-GLUCOSE METER 2021-09-[address] [facility] 21:28:00 [facility] POCT-GLUCOSE METER 2021-09-[address] [facility] 17:17:00 [facility] BASIC METABOLIC PANEL 2021-09-[address] [facility] 16:38:00 [facility] MAGNESIUM 2021-09-[address] [facility] 16:38:00 [facility] VENOUS DOPPLER LEG, LEFT 2021-09-15 [address] Hardy [facility] 15:25:00 [facility] C. DIFFICILE GDH TOXIN 2021-09-15 MauraRoseAmanda [facility] 14:29:00 [facility] POCT-GLUCOSE METER 2021-09-[address] [facility] 10:56:00 [facility] POCT-GLUCOSE METER 2021-09-[address] [facility] 07:10:00 [facility] CBC W/PLT COUNT & AUTO 2021-09-15 Maura Rose M. [facility] DIFFERENTIAL 05:04:00 [facility] MAGNESIUM 2021-09-[address] [facility] 05:04:00 [facility] CBC W/PLT COUNT & AUTO 2021-09-15 MauraRoseAmanda [facility] DIFFERENTIAL 05:04:00 [facility] COMPREHENSIVE METABOLIC 2021-09-[address] [facility] PANEL 05:04:00 [facility] FERRITIN 2021-09-15 Maura Rose CortneyAmanda [facility] 05:04:00 [facility] POCT-GLUCOSE METER 2021-09-14 Maura Rose CortneyAmanda [facility] 21:12:00 [facility] POCT-GLUCOSE METER 2021-09-14 CurtisBennie baconjal CortneyAmanda [facility] 18:00:00 [facility] FERRITIN 2021-09-14 Bennie Lorenzojal CortneyAmanda [facility] 14:00:00 [facility] POCT-GLUCOSE METER 2021-09-14 CurtisBennie baconjal CortneyAmanda [facility] 12:40:00 [facility] MAGNESIUM 2021-09-[address] [facility] 12:24:00 [facility] BASIC METABOLIC PANEL 2021-09-14 CurtisFlaco baconl CortneyAmanda [facility] 12:24:00 [facility] HEPATIC FUNCTION PANEL 2021-09-14 Maura Rose CortneyAmanda [facility] 12:24:00 [facility] POCT-GLUCOSE METER 2021-09-14 Maura Rose CortneyAmanda [facility] 08:04:00 [facility] POCT-GLUCOSE METER 2021-09-13 Maura Rose M[address] [facility] 21:38:00 [facility] POCT-GLUCOSE METER 2021-09-13 Maura Rose CortneyAmanda [facility] 16:22:00 [facility] POCT-GLUCOSE METER 2021-09-13 Maura Rose CortneyAmanda [facility] 11:57:00 [facility] POCT-GLUCOSE METER 2021-09-13 Maura Rose CortneyAmanda [facility] 09:31:00 [facility] CBC W/PLT COUNT & AUTO 2021-09-13 Ukani, Nilam [facility] DIFFERENTIAL 04:11:00 [facility] CBC W/PLT COUNT & AUTO 2021-09-13 Ukani, Nilam [facility] DIFFERENTIAL 04:11:00 [facility] COMPREHENSIVE METABOLIC 2021-09-13 Ukani, Nilam [facility] PANEL 04:11:00 [facility] MAGNESIUM 2021-09-13 Ukani, Nilam [facility] 04:11:00 [facility] PHOSPHORUS 2021-09-13 Ukani, Nilam [facility] 04:11:00 [facility] POCT-GLUCOSE METER 2021-09-[address] [facility] 21:08:00 [facility] CBC W/PLT COUNT & AUTO 2021-09-12 Ukani, Nilam [facility] DIFFERENTIAL 17:30:00 [facility] CBC W/PLT COUNT & AUTO 2021-09-[address] [facility] DIFFERENTIAL 17:30:00 [facility] COMPREHENSIVE METABOLIC 2021-09-[address] [facility] PANEL 17:30:00 [facility] MAGNESIUM 2021-09-[address] [facility] 17:30:00 [facility] PHOSPHORUS 2021-09-[address] [facility] 17:30:00 [facility] HEMOGLOBIN A1C 2021-09-[address] [facility] 17:30:00 [facility] DOUBLE-STRANDED DNA (DSDNA) 2021-09-[address] [facility] ANTIBODY 17:30:00 [facility] COMPLEMENT COMPONENT C4 2021-09-12 Dahlia, Lynette [facility] 17:30:00 [facility] FERRITIN 2021-09-[address] [facility] 17:30:00 [facility] ANTI-DNA TITER 2021-09-[address] [facility] 17:30:00 [facility] POCT-GLUCOSE METER 2021-09-[address] [facility] 16:59:00 [facility] POCT-GLUCOSE METER 2021-09-[address] [facility] 11:36:00 [facility] XR HIP 2 VIEWS BILATERAL 2021-09-[address] [facility] 10:40:00 [facility] XR SHOULDER COMPLETE 2 VIEWS 2021-09-[address] [facility] MIN RIGHT 10:40:00 [facility] XR HAND 3 VIEWS RIGHT 2021-09-[address] [facility] 10:40:00 [facility] POCT-GLUCOSE METER 2021-09-[address] [facility] 07:29:00 [facility] PROTEIN, RANDOM URINE 2021-09-[address] [facility] 05:46:00 [facility] CREATININE, RANDOM URINE 2021-09-[address] [facility] 05:46:00 [facility] POCT-GLUCOSE METER 2021-09-[address] [facility] 21:23:00 [facility] POCT-GLUCOSE METER 2021-09-[address] [facility] 16:19:00 [facility] POCT-GLUCOSE METER 2021-09-[address] [facility] 11:34:00 [facility] CBC W/PLT COUNT & AUTO 2021-09-11 Uklon, Nilam [facility] DIFFERENTIAL 09:40:00 [facility] BLOOD CULTURE 2021-09-[address] [facility] 09:40:00 [facility] CBC W/PLT COUNT & AUTO 2021-09-11 Ukani, Nilam [facility] DIFFERENTIAL 09:40:00 [facility] COMPREHENSIVE METABOLIC 2021-09-11 [facility] 09:40:00 [facility] MAGNESIUM 2021-09-11 Uklon, Nilam [facility] 09:40:00 [facility] PHOSPHORUS 2021-09-11 Uklon, Nilam [facility] 09:40:00 [facility] POCT-GLUCOSE METER 2021-09-[address] [facility] 07:18:00 [facility] CT ABDOMEN/PELVIS WITH IV 2021-09-[address] [facility] CONTRAST 23:05:00 [facility] POCT-GLUCOSE METER 2021-09-[address] [facility] 20:57:00 [facility] BLOOD CULTURE 2021-09-[address] [facility] 10:38:00 [facility] LACTIC ACID, VENOUS 2021-09-[address] [facility] 10:36:00 [facility] PROTHROMBIN TIME/INR 2021-09-[address] [facility] 10:36:00 [facility] APTT 2021-09-[address] [facility] 10:36:00 [facility] PROCALCITONIN 2021-09-[address] [facility] 10:36:00 [facility] XR CHEST 1 VIEW PORTABLE / 2021-09-[address] [facility] 09:14:00 [facility] CBC W/PLT COUNT & AUTO 2021-09-10 Nj, Nilam [facility] DIFFERENTIAL 05:05:00 [facility] (CELLAVISION MANUAL DIFF) 2021-09-10 Nj, Nilam [facility] 05:05:00 [facility] CBC W/PLT COUNT & AUTO 2021-09-10 Ukani, Nilam [facility] DIFFERENTIAL 05:05:00 [facility] COMPREHENSIVE METABOLIC 2021-09-10 Ukani, Nilampreston [facility] PANEL 05:05:00 [facility] MAGNESIUM 2021-09-10 Uklon, Nilam [facility] 05:05:00 [facility] PHOSPHORUS 2021-09-10 Nj, Nilam [facility] 05:05:00 [facility] POCT-GLUCOSE METER 2021-09-[address] [facility] 20:57:00 [facility] POCT-GLUCOSE METER 2021-09-[address] [facility] 16:16:00 [facility] METABOLIC 2021-09-09 Nj, Nilampreston [facility] PANEL 14:55:00 [facility] POCT-GLUCOSE METER 2021-09-[address] [facility] 11:25:00 [facility] 2D ECHO MODE W/O DOPPLER 2021-09-09 Babtia Cano [facility] 09:55:28 [facility] POCT-GLUCOSE METER 2021-09-[address] [facility] 06:44:00 [facility] POCT-GLUCOSE METER 2021-09-[address] [facility] 21:08:00 [facility] POCT-GLUCOSE METER 2021-09-[address] [facility] 19:41:00 [facility] POCT-GLUCOSE METER 2021-09-[address] [facility] 11:25:00 [facility] POCT-GLUCOSE METER 2021-09-[address] [facility] 09:10:00 [facility] POCT-GLUCOSE METER 2021-09-[address] [facility] 05:04:00 [facility] CBC W/PLT COUNT & AUTO 2021-09-[address] [facility] DIFFERENTIAL 04:20:00 [facility] CBC W/PLT COUNT & AUTO 2021-09-[address] [facility] DIFFERENTIAL 04:20:00 [facility] COMPREHENSIVE METABOLIC 2021-09-[address] [facility] PANEL 04:20:00 [facility] MAGNESIUM 2021-09-[address] [facility] 04:20:00 [facility] PHOSPHORUS 2021-09-[address] [facility] 04:20:00 [facility] POCT-GLUCOSE METER 2021-09-07 Kirit Jonesmark-Ambreen [facility] 23:09:00 [facility] POCT-GLUCOSE METER 2021-09-07 Alix Jones-Ambreen [facility] 18:43:00 [facility] HAPTOGLOBIN 2021-09-[address] [facility] 12:25:00 [facility] FIBRINOGEN 2021-09-[address] [facility] 12:25:00 [facility] VANCOMYCIN LEVEL, TROUGH 2021-09-07 David De La Vega [facility] 12:25:00 [facility] HEMOGLOBIN AND HEMATOCRIT 2021-09-07 Ciccarello, Babita [facility] 12:25:00 [facility] COMPREHENSIVE METABOLIC 2021-09-[address] [facility] PANEL 12:24:00 [facility] MAGNESIUM 2021-09-[address] [facility] 12:24:00 [facility] PHOSPHORUS 2021-09-[address] [facility] 12:24:00 [facility] LIPASE 2021-09-07 Ciccarello, Babita [facility] 12:24:00 [facility] PROCALCITONIN 2021-09-07 Ciccarello, Babita [facility] 12:24:00 [facility] HEPATIC FUNCTION PANEL 2021-09-07 Ciccarello, Babita [facility] 12:24:00 [facility] POCT-GLUCOSE METER 2021-09-[address] [facility] 12:01:00 [facility] URINALYSIS W/ REFLEX URINE 2021-09-07 Abe Reed Imad [facility] CULTURE 11:58:00 [facility] CBC W/PLT COUNT & AUTO 2021-09-[address] [facility] DIFFERENTIAL 05:29:00 [facility] (CELLAVISION MANUAL DIFF) 2021-09-07 T[facility]overde [facility] 05:29:00 [facility] CBC W/PLT COUNT & AUTO 2021-09-[address] [facility] DIFFERENTIAL 05:29:00 [facility] LACTIC ACID, VENOUS 2021-09-[address] [facility] 05:29:00 [facility] B-TYPE NATRIURETIC FACTOR 2021-09-07 PALAK Blake t Jarad (BNP) 05:29:00 [facility] PERIPHERAL BLOOD SMEAR - 2021-09-[address] [facility] PATHOLOGIST REVIEW 05:29:00 [facility] POCT-BLOOD GASES, ARTERIAL 2021-09-[address] [facility] 02:53:00 [facility] POCT-SODIUM 2021-09-[address] [facility] 02:53:00 [facility] POCT-POTASSIUM 2021-09-[address] [facility] 02:53:00 [facility] POCT-HEMOGLOBIN 2021-09-[address] [facility] 02:53:00 [facility] POCT-HEMATOCRIT 2021-09-[address] [facility] 02:53:00 [facility] POCT-GLUCOSE 2021-09-[address] [facility] 02:53:00 [facility] XR CHEST 1 VIEW PORTABLE / 2021-09-[address] [facility] BEDSIDE 02:51:00 [facility] ECG 12-LEAD 2021-09-[address] [facility] 01:42:00 [facility] ECG 12-LEAD 2021-09-07 Unknown, Hl7 Doctor [facility] 01:42:00 [facility] ECG 12-LEAD 2021-09-07 Unknown, Hl7 Doctor [facility] 01:42:00 [facility] ECG 12-LEAD 2021-09-[address] [facility] 01:37:32 [facility] ECG 12-LEAD 2021-09-07 Unknown, Hl7 Doctor [facility] 01:37:32 [facility] ECG 12-LEAD 2021-09-07 Unknown, Hl7 Doctor [facility] 01:37:32 [facility] BASIC METABOLIC PANEL 2021-09-07 Shama [facility]enthal [facility] 01:05:00 [facility] MAGNESIUM 2021-09-[address] [facility] 01:05:00 [facility] PHOSPHORUS 2021-09-[address] [facility] 01:05:00 [facility] LACTATE DEHYDROGENASE (LDH) 2021-09-[address] [facility] 01:05:00 [facility] BILIRUBIN, DIRECT 2021-09-[address] [facility] 01:05:00 [facility] POCT-GLUCOSE METER 2021-09-[address] [facility] 23:58:00 [facility] POCT-GLUCOSE METER 2021-09-[address] [facility] 15:46:00 [facility] MRSA SCREEN 2021-09-[address] [facility] 12:58:00 [facility] POCT-GLUCOSE METER 2021-09-[address] [facility] 12:53:00 [facility] POCT-GLUCOSE METER 2021-09-06 Galo, Shama Evelial [facility] 07:29:00 [facility] URINALYSIS W/ MICROSCOPIC 2021-09-06 Maganti, Lynette [facility] 05:28:00 [facility] PROTEIN, RANDOM URINE 2021-09-06 Dahlia, Lynette [facility] 05:28:00 [facility] CREATININE, RANDOM URINE 2021-09-06 anti, Lynette [facility] 05:28:00 [facility] COMPLEMENT COMPONENT C4 2021-09-[address] [facility] 05:14:00 [facility] VITAMIN D, 25-HYDROXY 2021-09-06 Shama Rosenthal [facility] 05:14:00 [facility] TSH/FREE T4 IF INDICATED 2021-09-06 Ukani, Nilam [facility] 05:14:00 [facility] XR CHEST 1 VIEW PORTABLE / 2021-09-06 Kareem Calhoun [facility] 02:18:00 [facility] BLOOD CULTURE 2021-09-[address] [facility] 02:06:00 [facility] CBC W/PLT COUNT & AUTO 2021-09-[address] [facility] DIFFERENTIAL 02:01:00 [facility] (CELLAVISION MANUAL DIFF) 2021-09-[address] [facility] 02:01:00 [facility] BLOOD CULTURE 2021-09-[address] [facility] 02:01:00 [facility] CBC W/PLT COUNT & AUTO 2021-09-[address] [facility] DIFFERENTIAL 02:01:00 [facility] LACTIC ACID, VENOUS 2021-09-[address] [facility] 02:01:00 [facility] PHOSPHORUS 2021-09-06 Ukani, Nilam [facility] 02:00:00 [facility] MAGNESIUM 2021-09-06 Ukani, Nilam [facility] 02:00:00 [facility] COMPREHENSIVE METABOLIC 2021-09-[address] [facility] PANEL 02:00:00 [facility] SARS-COV2/RT-PCR ([facility] & REF 2021-09-[address] [facility] 01:54:00 [facility] ECG 12-LEAD 2021-09-[address] [facility] 01:44:10 [facility] POCT-GLUCOSE METER 2021-09-[address] [facility] 01:04:00 [facility] BASIC METABOLIC PANEL 2021-09-05 Shama Rosenthal [facility] 19:09:00 [facility] MAGNESIUM 2021-09-[address] [facility] 19:09:00 [facility] PHOSPHORUS 2021-09-[address] [facility] 19:09:00 [facility] POCT-GLUCOSE METER 2021-09-[address] [facility] 19:00:00 [facility] DOUBLE-STRANDED DNA (DSDNA) 2021-09-05 Maganti, Lynette [facility] ANTIBODY 16:26:00 [facility] FERRITIN 2021-09-05 Maganti, Lynette [facility] 16:26:00 [facility] ANTI-DNA TITER 2021-09-05 Maganti, Lynette [facility] 16:26:00 [facility] POCT-GLUCOSE METER 2021-09-[address] [facility] 12:11:00 [facility] POCT-GLUCOSE METER 2021-09-[address] [facility] 06:34:00 [facility] COMPREHENSIVE METABOLIC 2021-09-05 Ukani, Nilam [facility] PANEL 04:46:00 [facility] CBC (HEMOGRAM ONLY) 2021-09-05 Ukani, Nilam [facility] 04:46:00 [facility] CALCIUM, IONIZED 2021-09-[address] [facility] 04:46:00 [facility] BASIC METABOLIC PANEL 2021-09-05 Shama Rosenthal [facility] 00:40:00 [facility] MAGNESIUM 2021-09-[address] [facility] 00:40:00 [facility] PHOSPHORUS 2021-09-[address] [facility] 00:40:00 [facility] POCT-GLUCOSE METER 2021-09-[address] [facility] 23:48:[address] [facility] [address] ABDOMEN/PELVIS WITH IV 2021-09-04 ani, Nilam [facility] CONTRAST 21:08:00 [facility] CTA CHEST FOR PULMONARY 2021-09-[address] [facility] EMBOLUS 21:08:00 [facility] POCT-GLUCOSE METER 2021-09-[address] [facility] 18:12:00 [facility] CALCIUM 2021-09-04 Uklon, Nilam [facility] 14:09:00 [facility] POCT-GLUCOSE METER 2021-09-[address] [facility] 13:06:00 [facility] ECG 12-LEAD 2021-09-04 Nj, Nilam [facility] 08:09:50 [facility] POCT-GLUCOSE METER 2021-09-[address] [facility] 06:04:00 [facility] CBC W/PLT COUNT & AUTO 2021-09-04 Nj, Nilam [facility] DIFFERENTIAL 04:12:00 [facility] COMPREHENSIVE METABOLIC 2021-09-04 Uklon, Nilam [facility] PANEL 04:12:00 [facility] MAGNESIUM 2021-09-04 Uklon, Nilam [facility] 04:12:00 [facility] CBC W/PLT COUNT & AUTO 2021-09-04 Nj, Nilam [facility] DIFFERENTIAL 04:12:00 [facility] URINE CULTURE 2021-09-04 Nj, Nilam [facility] 00:21:00 [facility] URINALYSIS W/ REFLEX URINE 2021-09-04 Uklon, Nilam [facility] CULTURE 00:21:00 [facility] POCT-GLUCOSE METER 2021-09-[address] [facility] 00:14:00 [facility] POCT-GLUCOSE METER 2021-09-[address] [facility] 17:51:00 [facility] CBC W/PLT COUNT & AUTO 2021-09-[address] [facility] DIFFERENTIAL 16:56:00 [facility] COMPREHENSIVE METABOLIC 2021-09-[address] [facility] PANEL 16:56:00 [facility] CBC W/PLT COUNT & AUTO 2021-09-03 Mk Rosenthalll Juliuszell [facility] DIFFERENTIAL 16:56:00 [facility] MAGNESIUM 2021-09-03 Uklon, Nilam [facility] 16:56:00 [facility] XR ABDOMEN/KUB 1 VIEW 2021-09-03 Ukani, Nilam [facility] PORTABLE 16:05:00 [facility] XR CHEST 1 VIEW PORTABLE / 2021-09-03 Nj Nilam [facility] BEDSIDE 16:02:00 [facility] XR ABDOMEN/KUB 1 VIEW 2021-09-03 Shama Rosenthal [facility] PORTABLE 12:50:00 [facility] COMPREHENSIVE METABOLIC 2021-09-03 Nalam, Nilsa Gladys [facility] PANEL 05:02:00 [facility] PHOSPHORUS 2021-09-[address] [facility] 05:02:00 [facility] POCT-GLUCOSE METER 2021-09-[address] [facility] 22:13:00 [facility] POCT-GLUCOSE METER 2021-09-02 Shama Rosenthal Juliusbonniel [facility] 18:48:00 [facility] CREATININE, RANDOM URINE 2021-09-02 Avu, [facility] 04:39:00 [facility] PROTEIN, RANDOM URINE 2021-09-02 Kaydenavaclarau, [facility] 04:39:00 [facility] POCT-GLUCOSE METER 2021-09-01 Galo [address] E[address]ial [facility] 23:16:00 [facility] POCT-GLUCOSE METER 2021-09-01 Galo, Shmaa Evelial [facility] 18:08:00 [facility] HIGH SENSITIVITY TROPONIN I 2021-09-[address] [facility] 16:25:00 [facility] XR CHEST 1 VIEW PORTABLE / 2021-09-01 Nilam Mauro [facility] 16:21:00 [facility] ECG 12-LEAD 2021-09-01 Unknown, Hl7 Doctor [facility] 15:41:33 [facility] ECG 12-LEAD 2021-09-01 Unknown, Hl7 Doctor [facility] 15:41:33 [facility] CBC W/PLT COUNT & AUTO 2021-09-01 Kraig, [facility] DIFFERENTIAL 06:00:00 [facility] (CELLAVISION MANUAL DIFF) 2021-09-[address] [facility] 06:00:00 [facility] COMPREHENSIVE METABOLIC 2021-09-01 Nalam, Nilsa Gladys [facility] PANEL 06:00:00 [facility] PROTHROMBIN TIME/INR 2021-09-01 Ukani, Nilam [facility] 06:00:00 [facility] PT/APTT 2021-09-01 Ukani, Nilam [facility] 06:00:00 [facility] CBC W/PLT COUNT & AUTO 2021-09-01 Avu, [facility] DIFFERENTIAL 06:00:00 [facility] T SPOT TB 2021-09-01 Galo Shama Altamiranol [facility] 06:00:00 [facility] IMMUNOGLOBULIN A (IGA) 2021-09-01 Galo Shama Altamiranol [facility] 06:00:00 [facility] POCT-GLUCOSE METER 2021-08-31 Galo Shama Altamiranol [facility] 21:49:00 [facility] POCT-GLUCOSE METER 2021-08-31 Galo Shama Altamiranol [facility] 17:13:00 [facility] POCT-GLUCOSE METER 2021-08-31 Galo Shama Altamiranol [facility] 13:28:00 [facility] POCT-GLUCOSE METER 2021-08-31 Galo Shama Mehtazell [facility] 08:41:00 [facility] MISCELLANEOUS LAB ORDER 2021-08-31 Galo Shama Altamiranol [facility] 06:22:00 [facility] MISCELLANEOUS LAB ORDER 2021-08-31 Galo Shama Altamiranol [facility] 05:16:00 [facility] ANTI-DARRIN AB (KETAN LACY) 2021-08-31 blayne, [facility] 05:14:00 [facility] CYCLIC CITRULLINATED PEPTIDE 2021-08-31 [facility], [facility] AB, IGG 05:14:00 [facility] CBC (HEMOGRAM ONLY) 2021-08-[address] [facility] 05:14:00 [facility] PROTHROMBIN TIME/INR 2021-08-31 Ukani, Nilam [facility] 05:14:00 [facility] PT/APTT 2021-08-31 Ukani, Nilam [facility] 05:14:00 [facility] RETICULOCYTE COUNT 2021-08-31 Mk Rosenthalll Eveliacata [facility] 05:14:00 [facility] MISCELLANEOUS LAB ORDER 2021-08-31 Galo Shama Angulo [facility] 05:13:00 [facility] COMPLEMENT COMPONENT C4 2021-08-31 Galo Shama Angulo [facility] 05:13:00 [facility] FERRITIN 2021-08-31 Bhairavarasu, [facility] 05:13:00 [facility] RHEUMATOID FACTOR AB, REFLEX 2021-08-31 Bhairavaclarau, [facility] TO TITER 05:13:00 [facility] MAGNESIUM 2021-08-[address] [facility] 05:13:00 [facility] COMPREHENSIVE METABOLIC 2021-08-31 Gabriel, Nilsa Gladys [facility] PANEL 05:13:00 [facility] HC LAB HIV-1 AG W/HIV-1&2 AB 2021-08-31 Shama [address] l [facility] 05:13:00 [facility] RPR 2021-08-[address] [facility] 05:13:00 [facility] RHEUMATOID FACTOR TITER 2021-08-31 Bhairavaclarau, [facility] 05:13:00 [facility] POCT-GLUCOSE METER 2021-08-[address] [facility] 21:08:00 [facility] POCT-GLUCOSE METER 2021-08-[address] [facility] 17:25:00 [facility] POCT-GLUCOSE METER 2021-08-[address] [facility] 12:38:00 [facility] POCT-GLUCOSE METER 2021-08-[address] [facility] 08:11:00 [facility] MAGNESIUM 2021-08-[address] [facility] 03:22:00 [facility] COMPREHENSIVE METABOLIC 2021-08-30 Nalam, Nilsa Gladys [facility] PANEL 03:22:00 [facility] CBC (HEMOGRAM ONLY) 2021-08-30 Jasielam Nilsa Gladys [facility] 03:22:00 [facility] PROTHROMBIN TIME/INR 2021-08-30 Ukani, Nilam [facility] 03:22:00 [facility] PT/APTT 2021-08-30 Ukani, Nilam [facility] 03:22:00 [facility] C-REACTIVE PROTEIN 2021-08-30 Ukani, Nilam [facility] 03:22:00 [facility] DOUBLE-STRANDED DNA (DSDNA) 2021-08-30 Ukani, Nilam [facility] ANTIBODY 03:22:00 [facility] LIPASE 2021-08-[address] [facility] 03:22:00 [facility] ANTI-DNA TITER 2021-08-30 Ukani, Nilam [facility] 03:22:00 [facility] POCT-GLUCOSE METER 2021-08-29 Nalam, Nilsa Gladys [facility] 21:37:00 [facility] POCT-GLUCOSE METER 2021-08-29 Nalam, Nilsa Gladys [facility] 17:43:00 [facility] FIBRINOGEN 2021-08-29 Ferrum, Peace [facility] 13:31:00 [place] PHOSPHATIDYLSERINE ABS (IGG, 2021-08-29 Ferrum, Peace [facility] IGM) 13:31:00 [place] HEREDITARY HEMOCHROMATOSIS 2021-08-[address] [facility] 13:31:00 [facility] POCT-GLUCOSE METER 2021-08-29 Nalam, Nilsa Gladys [facility] 11:43:00 [facility] POCT-GLUCOSE METER 2021-08-29 Nalam, Nilsa Gladys [facility] 08:43:00 [facility] SARS-COV2/RT-PCR ([facility] & REF 2021-08-[address] [facility]) 04:44:00 [facility] MAGNESIUM 2021-08-29 Vernell Gonzalez [facility] 04:41:00 [facility] COMPREHENSIVE METABOLIC 2021-08-29 Gabriel, Nilsa Gladys [facility] PANEL 04:41:00 [facility] PROTHROMBIN TIME/INR 2021-08-29 Ukani, Nilam [facility] 04:41:00 [facility] LIPASE 2021-08-[address] [facility] 04:41:00 [facility] PHOSPHORUS 2021-08-[address] [facility] 04:41:[address] [place] (MANUAL DIFFERENTIAL) 2021-08-[address] [facility] 04:40:00 [facility] CBC (HEMOGRAM ONLY) 2021-08-[address] [facility] 04:40:00 [facility] PERIPHERAL BLOOD SMEAR - 2021-08-[address] [facility] PATHOLOGIST REVIEW 04:40[facility]00 [facility] PO[facility]SE [facility] 2021-08-29 Gabriel, Nilsa Gladys [facility] 04:30:00 [facility] ACTIN (SMOOTH MUSCLE) 2021-08-28 Gordo, Rik Lio [facility] ANTIBODY, IGG 14:55:00 [facility] ANTI-MITOCHONDRIAL AB, 2021-08-28 Gordo, Raja Lio [facility] REFLEX TO TITER 14:55:00 [facility] ANTI-NUCLEAR ANTIBODY (STU) 2021-08-28 Gordo, Raja Lio [facility] 14:55:00 [facility] CERULOPLASMIN 2021-08-28 Gordo [address]a Lio [facility] 14:55:00 [facility] FERRITIN 2021-08-28 Gordo Raja Lio [facility] 14:55:00 [facility] HEPATITIS A ANTIBODY, IGG 2021-08-28 Rik Caro [facility]io [facility] 14:55:00 [facility] HEPATITIS B CORE ANTIBODY, 2021-08-28 Gordo Raja Lio [facility] TOTAL 14:55:00 [facility] HEPATITIS B SURFACE ANTIBODY 2021-08-28 Piyush Caroa Lio [facility] 14:55:00 [facility] HEPATITIS B SURFACE ANTIGEN 2021-08-28 Gordo, Raja Lio [facility] 14:55:00 [facility] HEPATITIS C ANTIBODY 2021-08-28 Gordo, Piyusha Lio [facility] 14:55:00 [facility] IMMUNOGLOBULIN G (IGG) 2021-08-28 Gordo, Raja Lio [facility] 14:55:00 [facility] IRON, TIBC, % SAT. (WITHOUT 2021-08-28 Caro, Rik Méndezir [facility] FERRITIN) 14:55:00 [facility] STU TITER AND PATTERN 2021-08-28 Caro, Rik M[facility]dezir [facility] 14:55:00 [facility] MITOCHONDRIAL AB SCREEN 2021-08-28 Caro, Raja Lio [facility] 14:55:00 [facility] MITOCHONDRIAL AB TITER 2021-08-28 Caro, Rik M[facility]dezir [facility] 14:55:00 [facility] MISCELLANEOUS LAB ORDER 2021-08-28 Caro, Rik Méndezir [facility] 14:10:00 [facility] [id number]\\, SERUM 2021-08-28 Gordo, Rik Méndezir [facility] 14:10:00 [facility] RAPID DRUG SCREEN, URINE 2021-08-28 Caro, Rik Méndezir [facility] 13:54:00 [facility] POCT-GLUCOSE METER 2021-08-28 Nalam, Nilsa Gladys [facility] 12:20:00 [facility] POCT-GLUCOSE METER 2021-08-28 Nalam, Nilsa Gladys [facility] 08:07:00 [facility] MAGNESIUM 2021-08-[address] [facility] 04:38:00 [facility] COMPREHENSIVE METABOLIC 2021-08-28 Nalam, Nilsa Gladys [facility] PANEL 04:38:00 [facility] CBC (HEMOGRAM ONLY) 2021-08-28 Jasielam, Nilsa Gladys [facility] 04:38:00 [facility] POCT-GLUCOSE METER 2021-08-27 Nalam, Nilsa Gladys [facility] 22:18:00 [facility] MR ABDOMEN WITHOUT IV 2021-08-27 Nalam, Nilsa Gladys [facility] CONTRAST MRCP 17:55:00 [facility] MR ABDOMEN WITH & WITHOUT IV 2021-08-27 Nalam, Nilsa Gladys [facility] CONTRAST 17:55:00 [facility] MAGNESIUM 2021-08-[address] [facility] 05:38:00 [facility] COMPREHENSIVE METABOLIC 2021-08-27 Nalam, Nilsa Gladys [facility] PANEL 05:38:00 [facility] CBC (HEMOGRAM ONLY) 2021-08-[address] [facility] 05:38:00 [facility] URINALYSIS W/ REFLEX URINE 2021-08-[address] [facility] CULTURE 04:24:00 [facility] BLOOD CULTURE 2021-08-[address] [facility] 04:15:00 [facility] BLOOD CULTURE 2021-08-[address] [facility] 01:51:00 [facility] CBC W/PLT COUNT & AUTO 2021-08-[address] [facility] DIFFERENTIAL 01:50:00 [facility] (CELLAVISION MANUAL DIFF) 2021-08-[address] [facility] 01:50:00 [facility] CBC W/PLT COUNT & AUTO 2021-08-[address] [facility] DIFFERENTIAL 01:50:00 [facility] COMPREHENSIVE METABOLIC 2021-08-[address] [facility] PANEL 01:50:00 [facility] MAGNESIUM 2021-08-[address] [facility] [facility] 01:50:00 [facility] TRIGLYCERIDES 2021-08-[address] [facility] 01:50:00 [facility] LIPASE 2021-08-[address] [facility] 01:50:00 [facility] PROTHROMBIN TIME/INR 2021-08-26 [facility] 01:49:00 [facility] IGG SUBCLASS-4 ONLY 2021-08-[address] [facility] 01:49:00 [facility] Plan of Care Planned Activity Planned [...] Luke s Test 00:00:00 (procedure) [code = [facility] 07200927] Future Scheduled 2024-12-[address] [facility] Test 00:00:00 (procedure) [code = [facility] [id number]] Future Scheduled 2024-12-[address] [facility] Test 00:00:00 (procedure) [code = [facility] 79464966] Future Scheduled 2024-12-[address] [facility] Test 00:00:00 (procedure) [code = [facility] [id number]] Future Scheduled 2024-12-[address] [facility] Test 00:00:00 (procedure) [code = [facility] [id number]] Future Scheduled 2024-12-[address] [facility] Test 00:00:00 (procedure) [code = [facility] [id number]] Future Scheduled 2022-01-18 INFLUENZA VACCINE (#1) [facility] 00:00:00 [code = INFLUENZA Medical nter VACCINE (#1)] Future Scheduled 2022-01-18 INFLUENZA [...] = Tobacco Cessation Counseling and Screening (12+)] Future Scheduled [address] [facility] Test 00:00:00 [facility] Screening (12+) [code = Tobacco Cessation Counseling and Screening (12+)] Future Scheduled [address] [facility] Test 00:00:00 [facility] r Screening (12+) [code = Tobacco Cessation Counseling and Screening (12+)] Encounters Start End Encounter Admission Attending Care Care Encounter Source Date/Time Date/Time Type Type Clinicians Facility Department ID 2022-06-14 Outpatient READAUSTYN RITCHIE [id number] [facility] 12:18:07 N WILLARD 2022-06-03 Outpatient 3 VJ CROUCH CV [id number] [facility] 14:59:09 WILL[facility] [id number] [facility] 2022-05-31 Outpatient 3 [id number] [facility] REF [id number] [facility] 12:17:08 [id number] [facility] 2022-02-21 Outpatient 3 [id number] [facility] REF [id number] [facility] 15:15:18 [facility] 2022-02-09 Outpatient 3 VJ CROUCH CV [id number] [facility] 10:16:03 WILLARD [facility] 2022-02-07 Outpatient 3 VJ CROUCH CV [id number] [facility] 12:02:45 WILLARD [facility] 2022-02-06 Outpatient 3 [id number] [facility] REF [id number] [facility] 12:16:49 [facility] [place] 2021-12-07 [facility] [id number] 00:[facility]:00 [facility] [place] 2021-12-07 [facility] [id number] 00:00:00 [facility] [place] 2021-10-09 Outpatient 3 VJ CROUCH [facility] [id number] [facility] 10:19:53 WILLARD [facility] 2021-10-08 Outpatient 3 VJ CROUCH [facility] [id number] [facility] 16:06:37 WILLARD [facility] 2021-10-05 Outpatient 3 [id number] [facility] REF [id number] [facility] 08:52:05 [facility] [place] 2021-10-04 Outpatient 3 [id number] [facility] REF [id number] [facility] 08:39:39 [facility] [place] 2021-09-25 Outpatient 3 [id number] [facility] [id number] [facility] 10:41:49 [facility] [place] 2021-09-04 Outpatient 3 [id number] ENC REF [id number] [facility] 15:32:58 [facility] [place] 2021-09-04 Outpatient 3 [id number] [facility] REF [id number] [facility] 08:59:04 [id number] [facility] [place] 2021-09-02 Outpatient 3 [id number] [facility] REF [id number] [facility] 11:35:01 041 [facility] [place] 2021-09-01 Outpatient 3 [id number] E[facility] REF [id number] [facility] 14:10:28 041 [facility] [place] 2022-06-05 2022-06-22 Inpatient 3 VJ CROUCH SAE [id number] [facility] 16:16:00 12:13:00 WILLARD [id number] [facility] 2022-05-26 2022-06-05 [facility] [id number] 02:16:00 15:28:00 Encounter Vernell Gonzalez [facility] 2022-05-26 2022-06-05 [facility] 1 [id number] [facility] 02:16:00 15:28:00 Encounter Vernell Gonzalez [facility] 2022-05-26 2022-06-05 Inpatient ER RIA THOMPSON Gastro [id number] [facility] 02:16:00 15:28:00 KAYLA 2022-05-29 2022-05-29 [facility] [id number] Univers 00:00:00 00:00:00 Mijares SPECIALTY [id number] ity of CARE [id number] [facility]ly [facility] AT [id number] Ks alyx BLANC [address] [place] [address] 2022-03-16 2022-03-18 Outpatient Joann JUAN JOSÉ [facility] MED [id number] Univers 01:27:00 18:08:00 ity of [facility] 2022-03-16 2022-03-18 [facility] Estrada Sinclair [id number] Univers 01:27:00 18:08:00 Encounter Juan José Garcia [id number] ity of [facility] [id number] [place] [id number] [facility] [address] 2022-03-16 2022-03-16 Orders Doctor MARY [id number] Univers 00:00:00 00:00:00 Only Unassigned, RALEIGH [id number] ity of [facility] [id number] [facility] [id number] [facility] [address] 2022-03-14 2022-03-14 Emergency X [facility] ERT [id number] Univers 13:27:00 18:30:00 ANETA radu [facility] 2022-03-14 2022-03-14 Emergency [facility] [id number] Univers 13:27:00 18:30:00 Aneta WHATLEY [id number] i ty [facility] [id number] [facility] [id number] [facility] [address] 2022-02-18 2022-03-12 [facility] [id number] 23:00:00 16:50:00 Encounter bruna Mckeon[address] 2022-02-18 2022-03-12 Hospital ER [facility] [id number] 23:00:00 16:50:00 Encounter Silvio Mccray [address] [place] [address] 2022-02-18 2022-03-12 Inpatient ER ABIODUN, [facility] Emergency [id number] [facility] 23:00:00 16:50:00 SILVIO Ontiveros 2022-03-08 2022-03-08 [facility] [id number] 00:00:00 00:00:00 Only [facility] 2022-03-08 2022-03-08 Orders Chaddal [facility] [id number] [facility] 00:00:00 00:00:00 Only [facility] 2022-02-11 2022-02-21 Inpatient 3 VJ CROUCH [id number] Encrennya 21:26:00 11:05:00 WILLARD [id number] [facility] itation [facility] 2022-02-20 2022-02-20 Outpatient NICHO Crouch [facility] [id number] [facility] 10:18:00 10:18:00 Willard 69 [facility] 2022-01-25 2022-02-11 [facility] Gricelda Arteaga [facility] [id number] 04:38:00 21:00:00 Encounter Nilsa Rios [facility], [facility] 2022-01-25 2022-02-11 Hospital ER Gricelda Arteaga [facility] [id number] 04:38:00 21:00:00 Encounter Nilsa Rios, [facility] 2022-01-25 2022-02-11 [facility] [id number] [facility] 04:38:00 21:00:00 [facility] 2022-02-07 2022-02-07 Anesthesia Tamia Jha [facility] [id number] 12:47:00 16:04:00 Event Hallie [facility] 2022-02-07 2022-02-07 Anesthesia Tamia Jha [facility] [id number] 12:47:00 16:04:00 [facility] 2022-02-07 2022-02-07 Surgery Lissette [facility] [id number] 11:56:00 15:22:00 [facility] 2022-02-07 2022-02-07 Surgery Lissette [facility] [id number] 11:56:00 15:22:00 [facility] 2022-02-02 2022-02-02 Surgery Willard, [facility] [id number] 12:00:00 13:00:00 [facility] 2022-02-02 2022-02-02 Surgery Willard, [facility] [id number] 12:00:00 13:00:00 [facility] 2022-02-02 2022-02-02 Anesthesia Jason, [facility] [id number] [facility] 11:37:00 12:37:00 Event [facility] 2022-02-02 2022-02-02 Anesthesia Jason, [facility] [id number] [id number] [facility] 11:37:00 12:37:00 Event [facility] 2022-01-25 2022-01-25 Outpatient BCM BCM [id number] [facility] 04:38:00 23:59:00 [facility] 2022-01-25 2022-01-25 Outpatient BCM BCM [id number] [facility] 04:38:00 04:38:00 [facility] 2022-01-25 2022-01-[address] [facility] [id number] [facility] 00[facility]:00 [facility] 2022-01-25 2022-01-[address] [facility] [id number] [facility] 00:[facility] 00:00:00 [facility] 2021-12-07 2021-12-25 [facility] [id number] [facility] 12:15:00 21:00:00 Encounter Bethany Durham Sahar [facility]i cal Athreya, Khannan [facility] 2021-12-07 2021-12-25 [facility] [id number] 12:15:00 21:00:00 Encounter Bethany Durham Sahar [facility] 2021-12-07 2021-12-25 Inpatient ER ROSALINDA, SLE Emergency [id number] SLE 12:15:00 21:00:00 BETHANY 2021-12-11 2021-12-11 Outside [facility], [facility] [id number] 00:00:00 00:00:00 Orders Bethany Roberts [facility] 2021-12-11 2021-12-11 Outside [facility], [facility] [id number] 00:00:00 00:00:00 Orders Ariairving Alejandra [facility] 2021-12-08 2021-12-[address] [facility] [id number] [facility] 00:[facility]00 00:00:00 [facility] 2021-12-08 2021-12-[address] [facility] [id number] [facility] 00:[facility]00 00:00:00 [facility] 2021-12-07 2021-12-[address] [facility] [id number] [facility] 00:[facility]:00 00:00:00 [facility] 2021-12-07 2021-12-[address] [facility] [id number] [facility] 00:[facility]00 00:00:00 [facility] 2021-10-10 2021-10-27 Inpatient 3 VJ CROUCH [facility] [id number] [facility] 15:00:00 13:33:00 WILLARD [id number] [facility] 2021-10-23 2021-10-23 Outpatient EL Ti HCAKW [facility] [id number] [facility] 13:20:00 13:20:00 Willard 60 [facility] 2021-10-20 2021-10-[address] [facility] [id number] 00:00:00 00:00:00 Orders [facility] 2021-10-20 2021-10-[address] [facility] [id number] 00:00:00 00:00:00 Orders [facility] 2021-10-19 2021-10-19 Outpatient ISMAEL GOYAL [facility] [id number] [place] [address] 13:28:45 14:35:41 AMADOVIRGILIO [facility]in [facility] 2021-10-19 2021-10-19 Outpatient RIA HILARIO [facility] [id number] SLE 00:00:00 00:00:00 [facility] 2021-09-27 2021-10-10 Inpatient ER [facility] Emergency [id number] [facility] 17:55:00 14:32:00 [facility] 2021-09-27 2021-10-10 [facility] [id number] 17:55:00 14:32:00 Encounter [facility] 2021-09-27 2021-10-10 [facility] [id number] 17:55:00 14:32:00 Encounter [facility] 2021-10-10 2021-10-10 Outpatient RIA HILARIO [facility] [id number] [facility] 00:00:00 00:00:00 [facility] 2021-10-02 2021-10-02 Anesthesia Aravind Harley [facility] [id number] [facility] 17:02:00 19:27:00 Event Ary Cohen [facility] 2021-10-02 2021-10-02 Anesthesia Aravind Harley [facility] [id number] [facility] 17:02:00 19:27:00 Event GrettayeDung sawantudayo [facility] 2021-10-02 2021-10-02 Surgery Lissette [facility] [id number] 16:30:00 19:12:00 [facility] 2021-10-02 2021-10-02 Surgery Lissette, [facility] [id number] 16:30:00 19:12:00 [facility] 2021-09-28 2021-09-28 Outpatient BCM [facility] [id number] [facility] 00:00:00 23:59:00 [facility] 2021-09-22 2021-09-27 Inpatient 3 VJ CROUCH ART [id number] [facility] 19:40:00 16:58:00 WILLARD [id number] [facility] itation [facility] 2021-09-27 2021-09-27 Outpatient EL KEAGAN CrouchKW [facility] [id number] [facility] 13:42:00 13:42:00 Willard 14 [facility] 2021-08-25 2021-09-22 Inpatient ER ELI, [facility] [id number] [facility] 23:24:00 18:50:00 IRINA 2021-08-25 2021-09-22 [facility] [id number] 23:24:00 18:50:00 Encounter Vernell Gnozalez Marilee [facility] Fang-Ying Heinen, Rebecca Benitez, Irina 2021-08-25 2021-09-22 [facility] [id number] 23:24:00 18:50:00 Encounter Vernell Gonzalez [facility] Fang-Ying Heinen, Rebecca Benitez, Irina 2021-09-07 2021-09-07 Outpatient CHAPIS OSPINA [id number] [facility] 00:00:00 00:00:00 SAMIM Seybol d 2021-09-04 2021-09-04 [facility] [id number] [facility] 00:00:00 23:59:00 [facility] 2021-09-01 2021-09-01 Orders [facility] [id number] 00:00:00 00:00:00 Only [facility] 2021-09-01 2021-09-01 Orders [facility] [id number] 00:00:00 00:00:00 Only [facility] 2021-08-26 2021-08-[address] [facility] [id number] [facility] 00:0000 00:00:00 [facility] 2021-08-26 2021-08-[address] [facility] [id number] [facility] 00:00:00 00:00:00 [facility] Results Test Description Test Time Test Comments Results Result Comments Source BLOOD CULTURE 2022-06-27 13:51:58 Test Item Value Reference Range Interpretation Comme nts CULTURE (BEAKER) (test code = 1095) No growth in 5 days Specimen received, ordered, and processed during a system downtime event in February 2022MR, ABDOMEN, [id number] 08:01:00Unlisted Reason for Exam - Click Yes and Enter Reason Below->Yes Unlisted Reason for Exam->evaluate pancreas anataomy and look for ductal stone MRCP protocol [facility] : 2000 Sex: MFINAL REPORT TECHNIQUE: MRI of the abdomen and MRCP WITHOUT and WITH intravenous contrast. 3-D volume reconstructions were obtained to evaluate the biliary ductal system. INDICATION: Unlisted Reason for Examevaluate pancreas anatomy and look for ductal stone. COMPARISON: MRI from 08/27/2021. CTs from 06/01/2022 and 01/24/2022 FINDINGS: ABSENCE OF INTRAVENOUS CONTRAST DECREASES SENSITIVITY FOR DETECTION OF FOCAL LESIONS AND VASCULAR PATHOLOGY. LOWER THORAX: Unremarkable. LIVER: There is decreased T2-weighted signal in the liver as well as decreased signal on in phase imaging. No focal hepatic lesions. BILIARY: Gallbladder is unremarkable. No biliary ductal dilatation or filling defect.SPLE EN: 13 cm splenomegaly.PANCREAS: No focal masses or ductal dilatation. There is some mild inflammatory change adjacent to the pancreatic tail. There are some linear areas of decreased T2 weighted signal around the distal pancreatic tail, most likely scar related to the prior fluid collections. The main pancreatic duct is looped in the pancreatic head. ADRENALS: No adrenal nodules.KIDNEYS/URETERS: No hydronephrosis or solid mass lesions. A left lower pole simple renal cyst measures 0.5 cm. No follow-up imaging is recommended. PERITONEUM/RETROPERITONEUM: Trace perisplenic ascites. A fluid collection along the falciform ligament measures 5.8 x 5 x 3.3 cm. LYMPH NODES: No lymphadenopathy.VESSELS: The right hepatic artery is replaced from superior mesenteric artery. The main portal vein is patent and measures 1.2 cm in diameter. GI TRACT: No distention or wall thickening. BONES AND SOFT TISSUES: A few scattered areas of restricted diffusion in the posterior abdominal wall musculature measure up to 0.7 cm and are unchanged. IMPRESSION: 1.No cholelithiasis or choledocholithiasis 2.There is some mild inflammatory change adjacent to the pancreatic tail which could be due to acute interstitial edematous pancreatitis in the appropriate clinical setting. The pancreatic duct is looped in the pancreatic head but otherwise normal. The previous is seen fluid collections around the pancreatic tail have resolved with some scar in the region 3.A fluid collection along the falciform ligament appears simple and is most likely a pseudocyst or loculated ascites which measures 5.8 x 5 x 3.3 cm. 4.The findings inthe liver are concerning for iron deposition. 5.Mild splenomegaly 6.The unchanged areas of restricted diffusion in the posterior abdominal wall musculature are unchanged and indeterminate. These could be small peripheral nerve sheath tumors. Attention on follow-up imaging is recommended. Signed: Yash Lux MDRort Verified Date/Time: 06/07/2022 08:01:15 POC-Glucose [id number] 12:08:43 Test Item Value Reference Range Interpretation Comments POC-Glucose Meter (test 131 mg/dL 70-110 H : TE STED AT [facility] code = 1538) 67[address] [facility], 770 30: Proctologist/Techni dakota ID = [id number] for SONI, ERNST Lab Interpretation (test Abnormal code = 40532-8) [facility] [id number] 12:08:43 Test Item Value Reference Range Interpretation Comments POC-Glucose Meter (test 131 mg/dL 70-110 H : TE STED AT [facility] code = 1538) [address] [facility], 770 30: Proctologist/Techni dakota ID = [id number] for SONI, ERNST Lab Interpretation (test Abnormal code = 65780-4) [facility] [id number] 12:08:43 Test Item Value Reference Range Interpretation Comments POC-GLUCOSE METER 131 mg/dL 70-110 H : TESTED A T [facility] 6720 (BEAKER) (test code = [facility], 1538) 36724: Proctologist/Techni dakota ID = [id number] for FAY MARTINEZ ERNST POCT-GLUCOSE [id number] 09:38:56 Test Item Value Reference Range Interpretation Comments POC-GLUCOSE METER 80 mg/dL 70-110 : TESTED A T [facility] 6720 (BEAKER) (test code = [facility], 1538) 78327: Proctologist/Techni dakota ID = [id number] for WILL IS, ERNST BASIC METABOLIC [id number] 05:35:10 Test Item Value Reference Range Interpretation Comments SODIUM (BEAKER) 136 meq/L 136-145 (test code = 381) POTASSIUM 4.5 meq/L 3.5-5.1 (BEAKER) (test code = 379) CHLORIDE (BEAKER) 100 meq/L 98-107 (test code = 382) CO2 (BEAKER) 27 meq/L 22-29 (test code = 355) BLOOD UREA 22 mg/dL 7-21 H NITROGEN (BEAKER) (test code = 354) CREATININE 0.61 mg/dL 0.57-1.25 (BEAKER) (test code = 358) GLUCOSE RANDOM 119 mg/dL 70-105 H (BEAKER) (test code = [...] not appl icable for dialysis patien ts Proctologist ID - MAILEJOVI [id number] 05:35:10 Test Item Value Reference Range Interpretation Comments MAGNESIUM (BEAKER) (test code = 1.8 mg/dL 1.6-2.6 627) Proctologist ID - MARIBEL LCBC W/PLT COUNT & AUTO [id number] 04:43:32 Test Item Value Reference Range Interpretation Comments WHITE BLOOD CELL COUNT (BEAKER) 15.9 K/ L 3.5-10.5 H (test code = 775) RED BLOOD CELL COUNT (BEAKER) 5.25 M/ L 4.63-6.08 (test code = 761) HEMOGLOBIN (BEAKER) (test code = 12.4 GM/DL 13.7-17.5 L 410) HEMATOCRIT (BEAKER) (test code = 40.9 % 40.1-51.0 411) MEAN CORPUSCULAR VOLUME (BEAKER) 78 fL 79-92 L (test code = 753) MEAN CORPUSCULAR HEMOGLOBIN 23.6 pg 25.7-32.2 L (BEAKER) (test code = 751) MEAN CORPUSCULAR HEMOGLOBIN CONC 30.3 GM/DL 32.3-36.5 L (BEAKER) (test code = 752) RED CELL DISTRIBUTION WIDTH 19.5 % 11.6-14.4 H (BEAKER) (test code = [...] (test code = 437) NEUTROPHILS ABSOLUTE COUNT 11.83 K/ L 1.78-5.38 H (BEAKER) (test code = 670) LYMPHOCYTES ABSOLUTE COUNT 2.48 K/ L 1.32-3.57 (BEAKER) (test code = 414) MONOCYTES ABSOLUTE COUNT (BEAKER) 0.93 K/ L 0.30-0.82 H (test code = 415) EOSINOPHILS ABSOLUTE COUNT 0.10 K/ L 0.04-0.54 (BEAKER) (test code = 416) BASOPHILS ABSOLUTE COUNT (BEAKER) 0.07 K/ L 0.01-0.08 (test code = 417) IMMATURE GRANULOCYTES-RELATIVE 3.00 % 0.00-1.00 H PERCENT (BEAKER) (test code = 2801) POCT-GLUCOSE [id number] 21:33:25 Test Item Value Reference Range Interpretation Comments POC-GLUCOSE METER 148 mg/dL 70-110 H : TESTED A T [facility] 6720 (BEAKER) (test code = [facility], 153) 27976: Proctologist/Techni dakota ID = [id number] for CR ISWELL, TIA POCT-GLUCOSE [id number] 17:15:25 Test Item Value Reference Range Interpretation Comments POC-GLUCOSE METER 159 mg/dL 70-110 H : TESTED A T [facility] 6720 (BEAKER) (test code = [facility], 153) 25113: Proctologist/Techni dakota ID = [id number] for WI LLIS, ERNST POCT-GLUCOSE [id number] 11:58:27 Test Item Value Reference Range Interpretation Comments POC-GLUCOSE METER 117 mg/dL 70-110 H : TESTED A T [facility] 6720 (BEAKER) (test code = [place], 1538) 19387: Proctologist/Techni dakota ID = [id number] for ERNST FRANCOIS POCT-GLUCOSE [id number] 08:28:16 Test Item Value Reference Range Interpretation Comments POC-GLUCOSE METER 75 mg/dL 70-110 : TESTED A T [facility] 6720 (BEAKER) (test code = [place] [facility], 1538) 95492: Proctologist/Techni dakota ID = [id number] for AKSHAT MARCUS ERNST [id number] 06:12:35 Test Item Value Reference Range Interpretation Comments MAGNESIUM (BEAKER) (test code = 1.7 mg/dL 1.6-2.6 627) Proctologist ID - PIAYA LBASIC METABOLIC [id number] 06:12:34 Test Item Value Reference Range Interpretation Comments [...] (BEAKER) (test code = 358) GLUCOSE RANDOM 81 mg/dL 70-105 (BEAKER) (test code = 652) [...] not appl icable for dialysis patien ts Proctologist ID - PIAYA LCBC W/PLT COUNT & AUTO [id number] 05:50:40 Test Item Value Reference Range Interpretation Comments WHITE BLOOD CELL COUNT (BEAKER) 14.0 K/ L 3.5-10.5 H (test code = 775) RED BLOOD CELL COUNT (BEAKER) 4.88 M/ L 4.63-6.08 (test code = 761) HEMOGLOBIN (BEAKER) (test code = 11.5 GM/DL 13.7-17.5 L 410) HEMATOCRIT (BEAKER) (test code = 37.3 % 40.1-51.0 L 411) MEAN CORPUSCULAR VOLUME (BEAKER) 76 fL 79-92 L (test code = 753) MEAN CORPUSCULAR HEMOGLOBIN 23.6 pg 25.7-32.2 L (BEAKER) (test code = 751) MEAN CORPUSCULAR HEMOGLOBIN CONC 30.8 GM/DL 32.3-36.5 L (BEAKER) (test code = [...] (test code = 437) NEUTROPHILS ABSOLUTE COUNT 9.91 K/ L 1.78-5.38 H (BEAKER) (test code = 670) LYMPHOCYTES ABSOLUTE COUNT 2.55 K/ L 1.32-3.57 (BEAKER) (test code = 414) MONOCYTES ABSOLUTE COUNT (BEAKER) 0.85 K/ L 0.30-0.82 H (test code = 415) EOSINOPHILS ABSOLUTE COUNT 0.17 K/ L 0.04-0.54 (BEAKER) (test code = 416) BASOPHILS ABSOLUTE COUNT (BEAKER) 0.05 K/ L 0.01-0.08 (test code = 417) IMMATURE GRANULOCYTES-RELATIVE 3.10 % 0.00-1.00 H PERCENT (BEAKER) (test code = 2801) POCT-GLUCOSE [id number] 22:42:07 Test Item Value Reference Range Interpretation Comments POC-GLUCOSE METER 176 mg/dL 70-110 H : TESTED A T [facility] 6720 (BEAKER) (test code = [facility], 1538) 99148: Proctologist/Techni dakota ID = [id number] for DARCIE DOUGLAS POCT-GLUCOSE [id number] 16:51:57 Test Item Value Reference Range Interpretation Comments POC-GLUCOSE METER 216 mg/dL 70-110 H : TESTED A T [facility] 6720 (BEAKER) (test code [facility], = 1538) 38104: Proctologist/Techni dakota ID = [id number] for WILS ON, SHASTANIE POCT-GLUCOSE [id number] 11:46:18 Test Item Value Reference Range Interpretation Comments POC-GLUCOSE METER 170 mg/dL 70-110 H : TESTED A T [facility] 6720 (BEAKER) (test code [facility], = 1538) 51120: Proctologist/Techni dakota ID = [id number] for WILS ON, SHASTANIE POCT-GLUCOSE [id number] 08:09:08 Test Item Value Reference Range Interpretation Comments POC-GLUCOSE METER 85 mg/dL 70-110 : TESTED A T [facility] 6720 (BEAKER) (test code = [facility], 1538) 41612: Proctologist/Techni dakota ID = [id number] for WILS ON, SHASTANIE BASIC METABOLIC [id number] 04:52:41 Test Item Value Reference Range Interpretation Comments [...] (BEAKER) (test code = 358) GLUCOSE RANDOM 128 mg/dL 70-105 H (BEAKER) (test code = 652) CALCIUM (BEAKER) 8.8 mg/dL 8.4-10.2 (test code = 697) EGFR (BEAKER) 134 Interpretatio n of eGFR (test code = [...] not appl icable for dialysis patien ts Proctologist ID - MAILEJOVI [id number] 04:52:41 Test Item Value Reference Range Interpretation Comments MAGNESIUM (BEAKER) (test code = 1.7 mg/dL 1.6-2.6 627) Proctologist ID - MARIBEL LCBC W/PLT COUNT & AUTO [id number] 03:58:25 Test Item Value Reference Range Interpretation Comments WHITE BLOOD CELL COUNT (BEAKER) 15.8 K/ L 3.5-10.5 H (test code = 775) RED BLOOD CELL COUNT (BEAKER) 4.83 M/ L 4.63-6.08 (test code = 761) HEMOGLOBIN (BEAKER) (test code = 11.5 GM/DL 13.7-17.5 L 410) HEMATOCRIT (BEAKER) (test code = 36.9 % 40.1-51.0 L 411) MEAN CORPUSCULAR VOLUME (BEAKER) 76 fL 79-92 L (test code = 753) MEAN CORPUSCULAR HEMOGLOBIN 23.8 pg 25.7-32.2 L (BEAKER) (test code = 751) MEAN CORPUSCULAR HEMOGLOBIN CONC 31.2 GM/DL 32.3-36.5 L (BEAKER) (test code = 752) RED CELL DISTRIBUTION WIDTH 16.9 % 11.6-14.4 H (BEAKER) (test code = 412) PLATELET COUNT (BEAKER) (test 364 K/CU MM 150-450 code = 756) MEAN [...] (test code = 437) NEUTROPHILS ABSOLUTE COUNT 11.36 K/ L 1.78-5.38 H (BEAKER) (test code = 670) LYMPHOCYTES ABSOLUTE COUNT 2.73 K/ L 1.32-3.57 (BEAKER) (test code = 414) MONOCYTES ABSOLUTE COUNT (BEAKER) 0.95 K/ L 0.30-0.82 H (test code = 415) EOSINOPHILS ABSOLUTE COUNT 0.13 K/ L 0.04-0.54 (BEAKER) (test code = 416) BASOPHILS ABSOLUTE COUNT (BEAKER) 0.06 K/ L 0.01-0.08 (test code = 417) IMMATURE GRANULOCYTES-RELATIVE 3.90 % 0.00-1.00 H PERCENT (BEAKER) (test code = 2801) POCT-GLUCOSE [id number] 21:30:43 Test Item Value Reference Range Interpretation Comments POC-GLUCOSE METER 170 mg/dL 70-110 H : Notified RN/MD: ([facility]) (test code = TESTED AT [facility] 6720 153) [facility], [address]: Proctologist/Techni dakota ID = [id number] for Tong Cruz POCT-GLUCOSE [id number] 17:00:13 Test Item Value Reference Range Interpretation Comments POC-GLUCOSE METER 218 mg/dL 70-110 H : TESTED A T [facility] 6720 ([facility]) (test code = [facility] [place] [facility], 1538) 07649: Proctologist/Techni dakota ID = [id number] for MARLENY Calderon POCT-GLUCOSE [id number] 11:44:53 Test Item Value Reference Range Interpretation Comments POC-GLUCOSE METER 168 mg/dL 70-110 H : TESTED A T [facility] 6720 (GENEVA) (test code = [place] [facility], 1538) 81610: Proctologist/Techni dakota ID = [id number] for MARLENY Calderon POCT-GLUCOSE [id number] 07:22:09 Test Item Value Reference Range Interpretation Comments POC-GLUCOSE METER 109 mg/dL 70-110 : TESTED A T [facility] 6720 (GENEVA) (test code = [place] [facility], 1538) 89976: Proctologist/Techni dakota ID = [id number] for MARLENY Calderon SARS-CoV2/RT-PCR (Asymptomatic ONLY)2022-06-02 06:51:46 Test Item Value Reference Interpretation Comments Range SARS-COV2/RT-PCR Negative Negative The SARS-Co V-2 (test code = target nucleic 89820-8) acids are not detected in thi s specimen. Negat vinicio results do not preclude SARS-C oV-2 infection and should not be u sed as the sole bas is for patient management decisions. Nega tive results must be combined with clinical observations, patient history , and epidemiolog ical information. A false negative result may occu r if a specimen is improperly collected, transported or handled. This S ARS CoV-2 test is a rapid, real-jossue e RT-PCR test intended for th e qualitative detection of nucleic acid fr om SARS-CoV-2 in a nasopharyngeal swab specimen [facility] from individual s suspected of COVID-19 by the ir healthcare provider. IDALIA (test code = This test has been IDALIA) authorized by FDA under an EUA for [...] revoked sooner. Fact Sheet for Healthcare Providers: https://www.Shopnation/Documents/Xp ert%20Xpress%20SAR S%20CoV-2/Fact%20S heets/302-3802%20S ARS-COV-2%20HEALTH CARE%20PROVIDERS%2 0FACT%20SHEET.pdf Fact Sheet for Healthcare Patients: https://www.Shopnation/Documents/Xp ert%20Xpress%20SAR S%20CoV-2/Fact%20S heets/302-3801%20S ARS-COV-2%20PATIEN T%20FACT%20SHEET.p df Lab Interpretation Normal (test code = 72095-5) [facility]2022-06-02 06:51:46 Test Item Value Reference Interpretation Comments Range SARS-COV2/RT-PCR Negative Negative The SARS-Co V-2 (test code = target nucleic 59624-2) acids are not detected in thi s specimen. Negat vinicio results do not preclude SARS-C oV-2 infection and should not be u sed as the sole bas is for patient management decisions. Nega tive results must be combined with clinical observations, patient history , and epidemiolog ical information. A false negative result may occu r if a specimen is improperly collected, transported or handled. This S ARS CoV-2 test is a rapid, real-jossue e RT-PCR test intended for th e qualitative detection of nucleic acid fr om SARS-CoV-2 in a nasopharyngeal swab specimen collec hernandez from individual s suspected of COVID-19 by the ir healthcare provider. IDALIA (test code = This test has been IDALIA) authorized by FDA under an EUA for [...] revoked sooner. Fact Sheet for Healthcare Providers: https://www.Shopnation/Documents/Xp ert%20Xpress%20SAR S%20CoV-2/Fact%20S heets/302-3802%20S ARS-COV-2%20HEALTH CARE%20PROVIDERS%2 0FACT%20SHEET.pdf Fact Sheet for Healthcare Patients: https://www.Shopnation/Documents/Xp ert%20Xpress%20SAR S%20CoV-2/Fact%20S heets/302-3801%20S ARS-COV-2%20PATIEN T%20FACT%20SHEET.p df Lab Interpretation Normal (test code = 93117-9) [facility]2022-06-02 06:51:46 Test Item Value Reference Range Interpretation Comments SARS-COV2/RT-PCR Negative Negative The SARS-Co V-2 target (test code = nucleic acids a re not 5656673) detected in thi s specimen. Negative result [...] revoked sooner. Fact Sheet for Healthcare Providers: https://www.Aluwave m/Documents/Xpert%20Xpress%20SARS%20CoV-2/Fact%20Sheets/302-3802%72TNWF-JKN-0%20 HEALTHCARE%20PROVIDERS%20FACT%20SHEET.pdf Fact Sheet for Healthcare Patients: https://www.Rapportive.Allocab/Documents/Xpert%20Xp ress%20SARS%20CoV-2/Fact%20Sheets/3023801%67OSUV-DCH-8%20PATIENT%20FACT%20SHEET .pdfBASIC METABOLIC [id number] 02:48:57 Test Item Value Reference Range Interpretation Comments SODIUM (BEAKER) 135 meq/L 136-145 L (test code = 381) POTASSIUM 4.4 meq/L 3.5-5.1 (BEAKER) (test code = 379) CHLORIDE (BEAKER) 100 meq/L 98-107 (test code = 382) CO2 (BEAKER) 24 meq/L 22-29 (test code = 355) BLOOD UREA 20 mg/dL 7-21 NITROGEN (BEAKER) (test code = 354) CREATININE 0.63 mg/dL 0.57-1.25 (BEAKER) (test code = 358) GLUCOSE RANDOM 127 mg/dL 70-105 H (BEAKER) (test code = [...] not appl icable for dialysis patien ts Proctologist ID - [id number] 02:48:57 Test Item Value Reference Range Interpretation Comments MAGNESIUM (BEAKER) (test code = 1.8 mg/dL 1.6-2.6 627) Proctologist ID - [id number] W/PLT COUNT & AUTO [id number] 02:28:38 Test Item Value Reference Range Interpretation Comments WHITE BLOOD CELL COUNT (BEAKER) 19.5 K/ L 3.5-10.5 H (test code = 775) RED BLOOD CELL COUNT (BEAKER) 5.29 M/ L 4.63-6.08 (test code = 761) HEMOGLOBIN (BEAKER) (test code = 12.3 GM/DL 13.7-17.5 L 410) HEMATOCRIT (BEAKER) (test code = 39.6 % 40.1-51.0 L 411) MEAN CORPUSCULAR VOLUME (BEAKER) 75 fL 79-92 L (test code = 753) MEAN CORPUSCULAR HEMOGLOBIN 23.3 pg 25.7-32.2 L (BEAKER) (test code = 751) MEAN CORPUSCULAR HEMOGLOBIN CONC 31.1 GM/DL 32.3-36.5 L (BEAKER) (test code = 752) RED CELL DISTRIBUTION WIDTH 16.5 % 11.6-14.4 H (BEAKER) (test code = 412) PLATELET COUNT (BEAKER) (test 500 K/CU MM 150-450 H code = 756) MEAN PLATELET VOLUME (BEAKER) [...] (test code = 437) NEUTROPHILS ABSOLUTE COUNT 15.66 K/ L 1.78-5.38 H (BEAKER) (test code = 670) LYMPHOCYTES ABSOLUTE COUNT 2.09 K/ L 1.32-3.57 (BEAKER) (test code = 414) MONOCYTES ABSOLUTE COUNT (BEAKER) 0.92 K/ L 0.30-0.82 H (test code = 415) EOSINOPHILS ABSOLUTE COUNT 0.13 K/ L 0.04-0.54 (BEAKER) (test code = 416) BASOPHILS ABSOLUTE COUNT (BEAKER) 0.06 K/ L 0.01-0.08 (test code = 417) IMMATURE GRANULOCYTES-RELATIVE 3.20 % 0.00-1.00 H PERCENT (BEAKER) (test code = 2801) POCT-GLUCOSE [id number] 02:24:01 Test Item Value Reference Range Interpretation Comments POC-GLUCOSE METER 129 mg/dL 70-110 H : TESTED A T [facility] 6720 ([place]) (test code = [place], 1538) [address]: Proctologist/Techni dakota ID = [id number] for Luis Felipe Bryson CT, [id number] 14:42:00Unlisted Reason for Exam - Click Yes and Enter Reason Below->YesUnlisted Reason for Exam->pancreatitis and increasing WBC countProtocol Please Specify:->Standard ProtocolWill this procedure require oral contrast?->No [facility] [place] [facility] [place] : 2000 Sex: MFINAL REPORT CT, ABDOMEN \\T\\ PELVIS, WITH IV CONTRAST HISTORY: Unlisted Reason for Exampancreatitis and increasing WBC count COMPARISON: 03/11/2022 CT abdomen pelvis TECHNIQUE: CT of the abdomen and pelvis WITH intravenous contrast. The examination was performed according to the departmental dose- optimization program, which includes automated exposure control, adjustment of the mA and/or kV according to patient size and/or use of iterative reconstruction technique. FINDINGS: Lower thorax: Tree-in-bud nodularity posterior basal right lower lobe, likely from prior bronchiolitis, no change from prior exam. Liver: Unremarkable.Gallbladder and bile ducts: Unremarkable. Spleen: Mildly enlarged in size with scattered punctate calcifications, likely secondary to old granulomatous disease. Pancreas: Mild nonloculated peripancreatic fluid about the tail , probably from pancreatitis. No main p ancreatic ductal dilation and normal pancreatic enhancement. No peripancreatic fluid collections Adrenals: UnremarkableKidneys and ureters: Unremarkable. Bowel: Unremarkable. Appendix not visualized, but there is no stranding in the right lower quadrant. Bladder: Unremarkable.Reproductive organs: Unremarkable. Lymph nodes: Unremarkable. Peritoneum and retroperitoneum: No free air. A small amount of free fluid about the pancreatic tail and spleen. A 5 x 1.9 cm locule of perihepatic fluid along the falciform ligament, homogeneous, nonrim-enhancing Vessels: Unremarkable. Abdominal wall: Postsurgical changes in the anterior abdominal wall.Bones: Severe degenerative changes of the left hip with bony rem odeling. IMPRESSION: 1.A 5 x 1.9 cm locule of perihepatic fluid along the falciform ligament. 2.A small amount of free fluid about the pancreatic tail and spleen. Probably related to the patient's pancreatitis. 3.Mild splenomegaly. Signed: Felicity Novak Verified Date/Time: 06/01/2022 14:42:56 El ectronically signed by: FELICITY NOVAK MD on 06/01/2022 02:42 PMPOCT-GLUCOSE [id number] 12:02:13 Test Item Value Reference Range Interpretation Comments POC-GLUCOSE METER 159 mg/dL 70-110 H : TESTED A T [facility] 6720 (BEAKER) (test code = [facility], 1538) [address]: Proctologist/Techni dakota ID = [id number] for Ceresco-LANDAVERD E, MARLENY POCT-GLUCOSE [id number] 07:56:29 Test Item Value Reference Range Interpretation Comments POC-GLUCOSE METER 92 mg/dL 70-110 : TESTED A T [facility] 6720 (BEAKER) (test code = [facility], 1538) 478[address]: Proctologist/Techni dakota ID = [id number] for [place]-LANDAVERD E, MARLENY [id number] 04:25:00 Test Item Value Reference Range Interpretation Comments MAGNESIUM (BEAKER) (test code = 1.7 mg/dL 1.6-2.6 627) Proctologist ID - PIAYA LBASIC METABOLIC [id number] 04:24:59 Test Item Value Reference Range Interpretation Comments [...] (BEAKER) (test code = 358) GLUCOSE RANDOM 127 mg/dL 70-105 H (BEAKER) (test code = [...] not appl icable for dialysis patien ts Proctologist ID - PIAYA LCBC W/PLT COUNT & AUTO [id number] 04:11:26 Test Item Value Reference Range Interpretation Comments WHITE BLOOD CELL COUNT (BEAKER) 19.4 K/ L 3.5-10.5 H (test code = 775) RED BLOOD CELL COUNT (BEAKER) 5.32 M/ L 4.63-6.08 (test code = 761) HEMOGLOBIN (BEAKER) (test code = 12.3 GM/DL 13.7-17.5 L 410) HEMATOCRIT (BEAKER) (test code = 39.0 % 40.1-51.0 L 411) MEAN CORPUSCULAR VOLUME (BEAKER) 73 fL 79-92 L (test code = 753) MEAN CORPUSCULAR HEMOGLOBIN 23.1 pg 25.7-32.2 L (BEAKER) (test code = 751) MEAN CORPUSCULAR HEMOGLOBIN CONC 31.5 GM/DL 32.3-36.5 L (BEAKER) (test code = 752) RED CELL DISTRIBUTION WIDTH 15.5 % 11.6-14.4 H (BEAKER) (test code = 412) PLATELET COUNT (BEAKER) (test 506 K/CU MM 150-450 H code = 756) MEAN PLATELET VOLUME (BEAKER) [...] (test code = 437) NEUTROPHILS ABSOLUTE COUNT 14.47 K/ L 1.78-5.38 H (BEAKER) (test code = 670) LYMPHOCYTES ABSOLUTE COUNT 2.87 K/ L 1.32-3.57 (BEAKER) (test code = 414) MONOCYTES ABSOLUTE COUNT (BEAKER) 1.02 K/ L 0.30-0.82 H (test code = 415) EOSINOPHILS ABSOLUTE COUNT 0.15 K/ L 0.04-0.54 (BEAKER) (test code = 416) BASOPHILS ABSOLUTE COUNT (BEAKER) 0.09 K/ L 0.01-0.08 H (test code = 417) IMMATURE GRANULOCYTES-RELATIVE 4.00 % 0.00-1.00 H PERCENT (BEAKER) (test code = 2801) POCT-GLUCOSE [id number] 22:38:25 Test Item Value Reference Range Interpretation Comments POC-GLUCOSE METER 197 mg/dL 70-110 H : TESTED A T [facility] 6720 (BEAKER) (test code = [facility], 153) 28[address]: Proctologist/Techni dakota ID = [id number] for FRANCISCO ANGELINEVIOLETA CALVILLO POCT-GLUCOSE [id number] 16:23:37 Test Item Value Reference Range Interpretation Comments POC-GLUCOSE METER 244 mg/dL 70-110 H : TESTED A T [facility] 6720 (BEAKER) (test code = [facility], 153) [address]: Proctologist/Techni dakota ID = [id number] for FAY NEGRONTONIAQUEEN POCT-GLUCOSE [id number] 11:36:41 Test Item Value Reference Range Interpretation Comments POC-GLUCOSE METER 177 mg/dL 70-110 H : TESTED A T [facility] 6720 (BEAKER) (test code = [place] [facility], 1538) [address]: Proctologist/Techni dakota ID = [id number] for QUEEN HONEYCUTT POCT-GLUCOSE [id number] 07:17:56 Test Item Value Reference Range Interpretation Comments POC-GLUCOSE METER 83 mg/dL 70-110 : TESTED A T [facility] 6720 (BEAKER) (test code = [place] [facility], 1538) [address]: Proctologist/Techni dakota ID = [id number] for QUEEN JACOBSEN [id number] 06:02:08 Test Item Value Reference Range Interpretation Comments MAGNESIUM (BEAKER) (test code = 2.2 mg/dL 1.6-2.6 627) Proctologist ID - MARCOBASIC METABOLIC [id number] 06:02:07 Test Item Value Reference Range Interpretation Comments SODIUM (BEAKER) 136 meq/L 136-145 (test code = 381) POTASSIUM 4.0 meq/L 3.5-5.1 (BEAKER) (test code = 379) CHLORIDE (BEAKER) 100 meq/L 98-107 (test code = 382) CO2 (BEAKER) 29 meq/L 22-29 (test code = 355) BLOOD UREA 22 mg/dL 7-21 H NITROGEN (BEAKER) (test code = 354) CREATININE 0.65 mg/dL 0.57-1.25 (BEAKER) (test code = 358) GLUCOSE RANDOM 121 [...] not appl icable for dialysis patien ts Proctologist ID - MARCOCBC W/PLT COUNT & AUTO [id number] 05:47:08 Test Item Value Reference Range Interpretation Comments WHITE BLOOD CELL COUNT (BEAKER) 13.0 K/ L 3.5-10.5 H (test code = 775) RED BLOOD CELL COUNT (BEAKER) 5.02 M/ L 4.63-6.08 (test code = 761) HEMOGLOBIN (BEAKER) (test code = 11.6 GM/DL 13.7-17.5 L 410) HEMATOCRIT (BEAKER) (test code = 37.0 % 40.1-51.0 L 411) MEAN CORPUSCULAR VOLUME (BEAKER) 74 fL 79-92 L (test code = 753) MEAN CORPUSCULAR HEMOGLOBIN 23.1 pg 25.7-32.2 L (BEAKER) (test code = 751) MEAN CORPUSCULAR HEMOGLOBIN CONC 31.4 GM/DL 32.3-36.5 L (BEAKER) (test code = 752) RED CELL DISTRIBUTION WIDTH 13.5 % 11.6-14.4 (BEAKER) (test code = 412) PLATELET COUNT (BEAKER) (test 449 K/CU MM 150-450 code = 756) MEAN PLATELET VOLUME (BEAKER) 10.0 fL 9.4-12.4 (test code = 754) NUCLEATED RED BLOOD CELLS 0 /100 WBC 0-0 (BEAKER) (test code = 413) NEUTROPHILS RELATIVE PERCENT 68 % (BEAKER) (test code = 429) LYMPHOCYTES RELATIVE PERCENT 20 % (BEAKER) (test code = 430) MONOCYTES RELATIVE PERCENT 7 % (BEAKER) (test code = 431) EOSINOPHILS RELATIVE PERCENT 1 % (BEAKER) (test code = 432) BASOPHILS RELATIVE PERCENT 1 % (BEAKER) (test code = 437) NEUTROPHILS ABSOLUTE COUNT 8.86 K/ L 1.78-5.38 H (BEAKER) (test code = 670) LYMPHOCYTES ABSOLUTE COUNT 2.55 K/ L 1.32-3.57 (BEAKER) (test code = 414) MONOCYTES ABSOLUTE COUNT (BEAKER) 0.86 K/ L 0.30-0.82 H (test code = 415) EOSINOPHILS ABSOLUTE COUNT 0.12 K/ L 0.04-0.54 (BEAKER) (test code = 416) BASOPHILS ABSOLUTE COUNT (BEAKER) 0.06 K/ L 0.01-0.08 (test code = 417) IMMATURE GRANULOCYTES-RELATIVE 4.50 % 0.00-1.00 H PERCENT (BEAKER) (test code = 2801) Creatinine, random [id number] 02:28:59 Test Item Value Reference Range Interpretation Comments Creatinine, Ur 65.7 mg/dL (test code = 2161-8) IDALIA (test code = Reference Range: No IDALIA) NormalsOperator ID - ADMIN [facility] CenterCreatinine, random [id number] 02:28:59 Test Item Value Reference Range Interpretation Comments Creatinine, Ur 65.7 mg/dL (test code = 2161-8) IDALIA (test code = Reference Range: No IDALIA) NormalsOperator ID - ADMIN [facility], RANDOM [id number] 02:28:59 Test Item Value Reference Range Interpretation Comments CREATININE URINE (BEAKER) (test 65.7 mg/dL code = 375) Reference Range: No NormalsOperator ID - ADMINPOCT-GLUCOSE [id number] 20:53:28 Test Item Value Reference Range Interpretation Comments POC-GLUCOSE METER 180 mg/dL 70-110 H : Notified RN/MD: ([facility]) (test code = TESTED AT [facility] 6720 1537) [facility], [address]: Proctologist/Techni dakota ID = [id number] for Tong Cruz POCT-GLUCOSE [id number] 16:07:58 Test Item Value Reference Range Interpretation Comments POC-GLUCOSE METER 217 mg/dL 70-110 H : [facility] (test code = [facility], 1537) [address]: Proctologist/Techni dakota ID = [id number] for DELMAR COOPER POCT-GLUCOSE [id number] 11:07:00 Test Item Value Reference Range Interpretation Comments POC-GLUCOSE METER 151 mg/dL 70-110 H : TESTED A T [facility] 6720 ([facility]) (test code = [facility], 1538) [address]: Proctologist/Techni dakota ID = [id number] for QUEEN HONEYCUTT POCT-GLUCOSE [id number] 08:04:04 Test Item Value Reference Range Interpretation Comments POC-GLUCOSE METER 91 mg/dL 70-110 : TESTED A T [facility] 6720 (BEAKER) (test code = [place] [facility], 1538) [address]: Proctologist/Techni dakota ID = [id number] for QUEEN JACOBSEN BASIC METABOLIC [id number] 05:08:46 Test Item Value Reference Range Interpretation Comments SODIUM (BEAKER) 135 meq/L 136-145 L (test code = 381) POTASSIUM 4.2 meq/L 3.5-5.1 Specimen slight ly (BEAKER) (test hemolyzed code = 379) CHLORIDE (BEAKER) 99 meq/L 98-107 (test code = 382) CO2 (BEAKER) 26 meq/L 22-29 (test code = 355) BLOOD UREA 13 mg/dL 7-21 NITROGEN (BEAKER) (test code = 354) CREATININE 0.61 mg/dL 0.57-1.25 Specimen slight ly (BEAKER) (test [...] not appl icable for dialysis patien ts Proctologist ID - BISI [id number] 05:08:45 Test Item Value Reference Range Interpretation Comments MAGNESIUM (BEAKER) 1.7 mg/dL 1.6-2.6 Specimen slightly (test code = 627) hemolyzed Proctologist ID - BISI GCBC W/PLT COUNT & AUTO [id number] 04:29:02 Test Item Value Reference Range Interpretation Comments WHITE BLOOD CELL COUNT (BEAKER) 11.5 K/ L 3.5-10.5 H (test code = 775) RED BLOOD CELL COUNT (BEAKER) 5.11 M/ L 4.63-6.08 (test code = 761) HEMOGLOBIN (BEAKER) (test code = 11.6 GM/DL 13.7-17.5 L 410) HEMATOCRIT (BEAKER) (test code = 37.3 % 40.1-51.0 L 411) MEAN CORPUSCULAR VOLUME (BEAKER) 73 fL 79-92 L (test code = 753) MEAN CORPUSCULAR HEMOGLOBIN 22.7 pg 25.7-32.2 L (BEAKER) (test code = 751) MEAN CORPUSCULAR HEMOGLOBIN CONC 31.1 GM/DL 32.3-36.5 L (BEAKER) (test code = 752) RED CELL DISTRIBUTION WIDTH 13.3 % 11.6-14.4 (BEAKER) (test code = 412) PLATELET COUNT (BEAKER) (test 482 K/CU MM 150-450 H code = 756) MEAN PLATELET VOLUME (BEAKER) 10.1 fL 9.4-12.4 (test code = 754) NUCLEATED RED BLOOD CELLS 0 /100 WBC 0-0 (BEAKER) (test code = 413) NEUTROPHILS RELATIVE PERCENT 68 % (BEAKER) (test code = 429) LYMPHOCYTES RELATIVE PERCENT 21 % (BEAKER) (test code = 430) MONOCYTES RELATIVE PERCENT 7 % (BEAKER) (test code = 431) EOSINOPHILS RELATIVE PERCENT 1 % (BEAKER) (test code = 432) BASOPHILS RELATIVE PERCENT 0 % (BEAKER) (test code = 437) NEUTROPHILS ABSOLUTE COUNT 7.78 K/ L 1.78-5.38 H (BEAKER) (test code = 670) LYMPHOCYTES ABSOLUTE COUNT 2.38 K/ L 1.32-3.57 (BEAKER) (test code = 414) MONOCYTES ABSOLUTE COUNT (BEAKER) 0.76 K/ L 0.30-0.82 (test code = 415) EOSINOPHILS ABSOLUTE COUNT 0.10 K/ L 0.04-0.54 (BEAKER) (test code = 416) BASOPHILS ABSOLUTE COUNT (BEAKER) 0.04 K/ L 0.01-0.08 (test code = 417) IMMATURE GRANULOCYTES-RELATIVE 3.40 % 0.00-1.00 H PERCENT (BEAKER) (test code = 2801) POCT-GLUCOSE [id number] 22:44:30 Test Item Value Reference Range Interpretation Comments POC-GLUCOSE METER 160 mg/dL 70-110 H : TESTED A T [facility] 6720 (BEAKER) (test code = [place], 1538) [address]: Proctologist/Techni dakota ID = [id number] for Ab pepe, [place] Protein, random [id number] 18:00:01 Test Item Value Reference Range Interpretation Comments Protein, Urine (test code = 11 mg/dL 0-14 2888-6) IDALIA (test code = IDALIA) Proctologist ID - BS Lab Interpretation (test Normal code = 90754-8) [facility] CenterProtein, random [id number] 18:00:01 Test Item Value Reference Range Interpretation Comments Protein, Urine (test code = 11 mg/dL 0-14 2888-6) IDALIA (test code = IDALIA) Proctologist ID - BS Lab Interpretation (test Normal code = 36373-8) [facility] CenterPROTEIN, RANDOM [id number] 18:00:01 Test Item Value Reference Range Interpretation Comments PROTEIN, URINE (BEAKER) (test code = 11 mg/dL 0-14 1569) Proctologist ID - BSANA TITER AND [id number] 14:11:35 Test Item Value Reference Range Interpretation Comments STU TITER (BEAKER) (test code = :640 1541) STU PATTERN (BEAKER) (test code = Homogeneous 1781) ANTI-NUCLEAR ANTIBODY (STU)[id number] 14:11:23 Test Item Value Reference Range Interpretation Comments ANTI-NUCLEAR ANTIBODY (STU) (BEAKER) Positive Negative A (test code = 418) Test performed by IFA method.ANTI-DNA [id number] 14:09:38 Test Item Value Reference Range Interpretation Comments ANTI-DNA TITER (BEAKER) (test code = :32 1553) DOUBLE-STRANDED DNA (DSDNA) [id number] 14:09:32 Test Item Value Reference Range Interpretation Comments ANTI-DNA DS (BEAKER) (test code = Positive Negative 1055) BASIC METABOLIC [id number] 05:45:43 Test Item Value Reference Range Interpretation Comments SODIUM (BEAKER) 134 meq/L 136-145 L (test code = 381) POTASSIUM 3.9 meq/L 3.5-5.1 (BEAKER) (test code = 379) CHLORIDE (BEAKER) 100 meq/L 98-107 (test code = 382) CO2 (BEAKER) 26 meq/L 22-29 (test code = 355) BLOOD UREA 16 mg/dL 7-21 NITROGEN (BEAKER) (test code = 354) CREATININE 0.58 mg/dL 0.57-1.25 (BEAKER) (test code = 358) GLUCOSE RANDOM 99 mg/dL 70-105 (BEAKER) (test code = 652) [...] not appl icable for dialysis patien ts Proctologist ID - MARIBEL [id number] 05:45:43 Test Item Value Reference Range Interpretation Comments MAGNESIUM (BEAKER) (test code = 1.5 mg/dL 1.6-2.6 L 627) Proctologist ID - MARIBEL LCBC W/PLT COUNT & AUTO [id number] 05:11:51 Test Item Value Reference Range Interpretation Comments WHITE BLOOD CELL COUNT (BEAKER) 10.1 K/ L 3.5-10.5 (test code = 775) RED BLOOD CELL COUNT (BEAKER) 4.70 M/ L 4.63-6.08 (test code = 761) HEMOGLOBIN (BEAKER) (test code = 10.7 GM/DL 13.7-17.5 L 410) HEMATOCRIT (BEAKER) (test code = 34.4 % 40.1-51.0 L 411) MEAN CORPUSCULAR VOLUME (BEAKER) 73 fL 79-92 L (test code = 753) MEAN CORPUSCULAR HEMOGLOBIN 22.8 pg 25.7-32.2 L (BEAKER) (test code = 751) MEAN CORPUSCULAR HEMOGLOBIN CONC 31.1 GM/DL 32.3-36.5 L (BEAKER) (test code = 752) RED CELL DISTRIBUTION WIDTH 13.1 % 11.6-14.4 (BEAKER) (test code = 412) PLATELET COUNT (BEAKER) (test 420 K/CU MM 150-450 code = 756) MEAN [...] (test code = 437) NEUTROPHILS ABSOLUTE COUNT 7.31 K/ L 1.78-5.38 H (BEAKER) (test code = 670) LYMPHOCYTES ABSOLUTE COUNT 1.93 K/ L 1.32-3.57 (BEAKER) (test code = 414) MONOCYTES ABSOLUTE COUNT (BEAKER) 0.64 K/ L 0.30-0.82 (test code = 415) EOSINOPHILS ABSOLUTE COUNT 0.01 K/ L 0.04-0.54 L (BEAKER) (test code = 416) BASOPHILS ABSOLUTE COUNT (BEAKER) 0.02 K/ L 0.01-0.08 (test code = 417) IMMATURE GRANULOCYTES-RELATIVE 2.30 % 0.00-1.00 H PERCENT (BEAKER) (test code = 2801) POCT-GLUCOSE [id number] 22:42:09 Test Item Value Reference Range Interpretation Comments POC-GLUCOSE METER 250 mg/dL 70-110 H : Notified RN/MD: ([place]) (test code = TESTED AT [facility] 9862 3329) [facility], [address]: Proctologist/Techni dakota ID = [id number] for Tong Cruz HEMOGLOBIN [id number] 09:55:38 Test Item Value Reference Range Interpretation Comments HEMOGLOBIN A1C 5.1 % See_Comment [Automated m essage] ELECTROPHORESIS (BEAKER) [...] 5.7- 6.4% indicates increased risk for diabetes (prediabetes)."Proctologist ID - ADM [id number] 05:19:29 Test Item Value Reference Range Interpretation Comments MAGNESIUM (BEAKER) (test code = 1.6 mg/dL 1.6-2.6 627) Proctologist ID - MARCOBASIC METABOLIC [id number] 05:19:28 Test Item Value Reference Range Interpretation Comments SODIUM (BEAKER) 140 meq/L 136-145 (test code = 381) POTASSIUM 3.8 meq/L 3.5-5.1 (BEAKER) (test code = 379) CHLORIDE (BEAKER) 105 meq/L 98-107 (test code = 382) CO2 (BEAKER) 28 meq/L 22-29 (test code = 355) BLOOD UREA 16 mg/dL 7-21 NITROGEN (BEAKER) (test code = 354) CREATININE 0.65 mg/dL 0.57-1.25 (BEAKER) (test code = 358) GLUCOSE RANDOM 150 mg/dL 70-105 H (BEAKER) (test code = 652) CALCIUM (BEAKER) 8.6 mg/dL 8.4-10.2 (test code = 697) EGFR [...] not appl icable for dialysis patien ts Proctologist ID - MARCOCBC W/PLT COUNT & AUTO [id number] 05:08:02 Test Item Value Reference Range Interpretation Comments WHITE BLOOD CELL COUNT (BEAKER) 8.1 K/ L 3.5-10.5 (test code = 775) RED BLOOD CELL COUNT (BEAKER) 4.46 M/ L 4.63-6.08 L (test code = 761) HEMOGLOBIN (BEAKER) (test code = 10.2 GM/DL 13.7-17.5 L 410) HEMATOCRIT (BEAKER) (test code = 32.4 % 40.1-51.0 L 411) MEAN CORPUSCULAR VOLUME (BEAKER) 73 fL 79-92 L (test code = 753) MEAN CORPUSCULAR HEMOGLOBIN 22.9 pg 25.7-32.2 L (BEAKER) (test code = 751) MEAN CORPUSCULAR HEMOGLOBIN CONC 31.5 GM/DL 32.3-36.5 L (BEAKER) (test code = 752) RED CELL DISTRIBUTION WIDTH 12.9 % 11.6-14.4 (BEAKER) (test code = 412) PLATELET COUNT (BEAKER) (test 446 K/CU MM 150-450 code = 756) MEAN [...] (test code = 437) NEUTROPHILS ABSOLUTE COUNT 6.03 K/ L 1.78-5.38 H (BEAKER) (test code = 670) LYMPHOCYTES ABSOLUTE COUNT 1.43 K/ L 1.32-3.57 (BEAKER) (test code = 414) MONOCYTES ABSOLUTE COUNT (BEAKER) 0.46 K/ L 0.30-0.82 (test code = 415) EOSINOPHILS ABSOLUTE COUNT 0.01 K/ L 0.04-0.54 L (BEAKER) (test code = 416) BASOPHILS ABSOLUTE COUNT (BEAKER) 0.01 K/ L 0.01-0.08 (test code = 417) IMMATURE GRANULOCYTES-RELATIVE 1.70 % 0.00-1.00 H PERCENT (BEAKER) (test code = 2801) POCT-GLUCOSE [id number] 20:55:40 Test Item Value Reference Range Interpretation Comments POC-GLUCOSE METER 188 mg/dL 70-110 H : TESTED A T [facility] 6720 (BEAKER) (test code = [facility], 1538) [address]: Proctologist/Techni dakota ID = [id number] for VIOLETA RODGERS POCT-GLUCOSE [id number] 16:38:41 Test Item Value Reference Range Interpretation Comments POC-GLUCOSE METER 186 mg/dL 70-110 H : TESTED A T [facility] 6720 (BEAKER) (test code = [facility], 1538) [address]: Proctologist/Techni dakota ID = [id number] for QUEEN HONEYCUTT POCT-GLUCOSE [id number] 11:08:21 Test Item Value Reference Range Interpretation Comments POC-GLUCOSE METER 143 mg/dL 70-110 H : TESTED A T [facility] 6720 (BEAKER) (test code = [facility], 1538) [address]: Proctologist/Techni dakota ID = [id number] for QUEEN HONEYCUTT POCT-GLUCOSE [id number] 07:08:50 Test Item Value Reference Range Interpretation Comments POC-GLUCOSE METER 168 mg/dL 70-110 H : TESTED A T [facility] 6720 (BEAKER) (test code = [facility], 1538) [address]: Proctologist/Techni dakota ID = [id number] for QUEEN HONEYCUTT BASIC METABOLIC [id number] 04:24:26 Test Item Value Reference Range Interpretation Comments SODIUM (BEAKER) 137 meq/L 136-145 (test code = 381) POTASSIUM 4.0 meq/L 3.5-5.1 (BEAKER) (test code = 379) CHLORIDE (BEAKER) 104 meq/L 98-107 (test code = 382) CO2 (BEAKER) 24 meq/L 22-29 (test code = 355) BLOOD UREA 8 mg/dL 7-21 NITROGEN (BEAKER) (test code = 354) CREATININE 0.61 mg/dL 0.57-1.25 (BEAKER) (test code = 358) GLUCOSE RANDOM 182 [...] not appl icable for dialysis patien ts Proctologist ID - [id number] 04:24:26 Test Item Value Reference Range Interpretation Comments MAGNESIUM (BEAKER) (test code = 1.5 mg/dL 1.6-2.6 L 627) Proctologist ID - [id number] 04:24:26 Test Item Value Reference Range Interpretation Comments PHOSPHORUS (BEAKER) (test code = 3.1 mg/dL 2.3-4.7 604) Proctologist ID - MARCOCBC W/PLT COUNT & AUTO [id number] 04:14:14 Test Item Value Reference Range Interpretation Comments WHITE BLOOD CELL COUNT (BEAKER) 3.4 K/ L 3.5-10.5 L (test code = 775) RED BLOOD CELL COUNT (BEAKER) 4.77 M/ L 4.63-6.08 (test code = 761) HEMOGLOBIN (BEAKER) (test code = 10.9 GM/DL 13.7-17.5 L 410) HEMATOCRIT (BEAKER) (test code = 34.1 % 40.1-51.0 L 411) MEAN CORPUSCULAR VOLUME (BEAKER) 72 fL 79-92 L (test code = 753) MEAN CORPUSCULAR HEMOGLOBIN 22.9 pg 25.7-32.2 L (BEAKER) (test code = 751) MEAN CORPUSCULAR HEMOGLOBIN CONC 32.0 GM/DL 32.3-36.5 L (BEAKER) (test code = 752) RED CELL DISTRIBUTION WIDTH 12.9 % 11.6-14.4 (BEAKER) (test code = 412) PLATELET COUNT (BEAKER) (test 440 K/CU MM 150-450 code = 756) MEAN PLATELET VOLUME (BEAKER) 10.2 fL 9.4-12.4 (test code = 754) NUCLEATED RED BLOOD CELLS 0 /100 WBC 0-0 (BEAKER) (test code = 413) NEUTROPHILS RELATIVE PERCENT 79 % (BEAKER) (test code = 429) LYMPHOCYTES RELATIVE PERCENT 17 % (BEAKER) (test code = 430) MONOCYTES RELATIVE PERCENT 4 % (BEAKER) (test code = 431) EOSINOPHILS RELATIVE PERCENT 0 % (BEAKER) (test code = 432) BASOPHILS RELATIVE PERCENT 0 % (BEAKER) (test code = 437) NEUTROPHILS ABSOLUTE COUNT 2.69 K/ L 1.78-5.38 (BEAKER) (test code = 670) LYMPHOCYTES ABSOLUTE COUNT 0.57 K/ L 1.32-3.57 L (BEAKER) (test code = 414) MONOCYTES ABSOLUTE COUNT (BEAKER) 0.13 K/ L 0.30-0.82 L (test code = 415) EOSINOPHILS ABSOLUTE COUNT 0.01 K/ L 0.04-0.54 L (BEAKER) (test code = 416) BASOPHILS ABSOLUTE COUNT (BEAKER) 0.00 K/ L 0.01-0.08 L (test code = 417) IMMATURE GRANULOCYTES-RELATIVE 0.60 % 0.00-1.00 PERCENT (BEAKER) (test code = 2801) POCT-GLUCOSE [id number] 21:34:17 Test Item Value Reference Range Interpretation Comments POC-GLUCOSE METER 252 mg/dL 70-110 H : TESTED A T [facility] 6720 (BEAKER) (test code = [place], 1538) [address]: Proctologist/Techni d[place]ota ID = [id number] for VIOLETA RODGERS U/S, ABDOMINAL, [id number] 17:51:00Abdomen limited area? Add comment if clarification is needed.->Gallbladder Reason for exam:->acute on chronic pancreatitis, never had ultrasound please assess for gallstones, thank you [facility] : 2000 Sex: MFINAL REPORT U/S, ABDOMINAL, LIMITED CLINICAL HISTORY: acute on chronic pancreatitis, never had ultrasound please assess for gallstones, thank you Comparison: CT of the abdomen and [id number] TECHNIQUE: Real time grayscale and color Doppler images of the right upper quadrant abdominal organs were obtained using a curved transducer. FINDINGS: Pancreas: Obscured by overlying bowel gas Liver: Normal echotexture and echogenicity Focal liver lesions: None. Portal vein: Normal, hepatopetal flow. Normal diameter main portal vein. Bile ducts: Nondilated Gallbladder: Unremarkable Right kidney: Normal in size and cortical thickness. Ascites: None Visualized aorta and IVC: Unremarkable. MEASUREMENTS:Liver: 15.3 cm Common Duct: 3 mm Right Kidney: 12.4 cm Aorta: 2.0 cm IMPRESSION: Normal right upper quadrant abdominal ultrasound. Signed: Cira Doradoeport Verified Date/Time: 05/26/2022 17:51:31 Reading Location: [address] Reading Room POCT-GLUCOSE [id number] 16:35:02 Test Item Value Reference Range Interpretation Comments POC-GLUCOSE METER 122 mg/dL 70-110 H : TESTED A T [facility] 6720 (BEAKER) (test code = DONNA [place], 1538) [address]: Proctologist/Techni dakota ID = [id number] for QUEEN HONEYCUTT POCT-GLUCOSE [id number] 12:55:26 Test Item Value Reference Range Interpretation Comments POC-GLUCOSE METER 104 mg/dL 70-110 : TESTED A T [facility] 6720 (BEAKER) (test code = [place] [facility], 1538) [address]: Proctologist/Techni dakota ID = [id number] for QUEEN HONEYCUTT Urinalysis w/[id number] 12:00:56 Test Item Value Reference Range Interpretation Comments Color, UA (test code Yellow = 5778-6) Clarity, UA (test Clear code = 5767-9) Specific [place], UA 1.030 1.001-1.035 (test code = 5811-5) pH, UA (test code = 5.5 5.0-8.0 5803-2) Protein, UA (test 30 mg/dL Negative A code = 15357-5) Glucose, UA (test Negative Negative code = 365) Ketones, UA (test Negative Negative code = 2514-8) Bilirubin, UA (test Negative Negative code = 87404-5) Blood, UA (test code Moderate Negative A = 07198-6) Nitrite, UA (test Negative Negative code = 5802-4) Leukocytes, UA (test Negative Negative code = 5799-2) Urobilinogen, UA 0.2 0.2-1.0 (test code = 35702-2) RBC, UA (test code = 6 See_Comment [Autom ated 67806-3) message] The system which generated this result transmit hernandez reference range : /HPF. The reference range was not used to interpret this result as normal/abnormal . WBC, UA (test code = 2 See_Comment [Autom ated 5821-4) message] The system which generated this result transmit hernandez reference range : /HPF. The reference range was not used to interpret this result as normal/abnormal . Mucus (test code = Rare 8247-9) Hyaline Casts, UA 1 See_Comment [Automate d (test code = 05852-4) messag e] The system which generated this result transmit hernandez reference range : /LPF. The reference range was not used to interpret this result as normal/abnormal . Specimen Source (test Urine, Clean code = 2795) Catch IDALIA (test code = IDALIA) Proctologist ID - [auto]Proctologist ID - tech Lab Interpretation Abnormal (test code = 94674-4) [facility] Center[facility]/Qiryiukfkkj8727-23-70 12:00:56 Test Item Value Reference Range Interpretation Comments Color, UA (test code Yellow = 5778-6) Clarity, UA (test Clear code = 5767-9) Specific [place], UA 1.030 1.001-1.035 (test code = 5811-5) pH, UA (test code = 5.5 5.0-8.0 5803-2) Protein, UA (test 30 mg/dL Negative A code = 54023-6) Glucose, UA (test Negative Negative code = 365) Ketones, UA (test Negative Negative code = 2514-8) Bilirubin, UA (test Negative Negative code = 37861-6) Blood, UA (test code Moderate Negative A = 80924-4) Nitrite, UA (test Negative Negative code = 5802-4) Leukocytes, UA (test Negative Negative code = 5799-2) Urobilinogen, UA 0.2 0.2-1.0 (test code = 32865-5) RBC, UA (test code = 6 See_Comment [Autom ated 63013-1) message] The system which generated this result transmit hernandez reference range : /HPF. The reference range was not used to interpret this result as normal/abnormal . WBC, UA (test code = 2 See_Comment [Autom ated 5821-4) message] The system which generated this result transmit hernandez reference range : /HPF. The reference range was not used to interpret this result as normal/abnormal . Mucus (test code = Rare 8247-9) Hyaline Casts, UA 1 See_Comment [Automate d (test code = 53442-7) messag e] The system which generated this result transmit hernandez reference range : /LPF. The reference range was not used to interpret this result as normal/abnormal . Specimen Source (test Urine, Clean code = 2795) Catch IDALIA (test code = IDALIA) Proctologist ID - [auto]Proctologist ID - tech Lab Interpretation Abnormal (test code = 54061-8) [facility] Center[facility] W/ [id number] 12:00:56 Test Item Value Reference Range Interpretation Comments COLOR (BEAKER) (test code Yellow = 470) CLARITY (BEAKER) (test Clear code = 469) SPECIFIC GRAVITY UA 1.030 1.001-1.035 (BEAKER) (test code = 468) PH UA (BEAKER) (test code 5.5 5.0-8.0 = 467) PROTEIN UA (BEAKER) (test 30 mg/dL Negative A code = 464) GLUCOSE UA (BEAKER) (test Negative Negative code = 365) KETONES UA (BEAKER) (test Negative Negative code = 371) BILIRUBIN UA (BEAKER) Negative Negative (test code = 462) BLOOD UA (BEAKER) (test Moderate Negative A code = 461) NITRITE UA (BEAKER) (test Negative Negative code = 465) LEUKOCYTE ESTERASE UA Negative Negative (BEAKER) (test code = 466) UROBILINOGEN UA (BEAKER) 0.2 0.2-1.0 (test code = 463) RBC UA (BEAKER) (test code 6 /HPF = 519) WBC UA (BEAKER) (test code 2 /HPF = 520) MUCUS (BEAKER) (test code Rare = 1574) HYALINE CASTS (BEAKER) 1 /LPF (test code = 514) SOURCE(BEAKER) (test code Urine, Clean Catch = 2795) Proctologist ID - [auto]Proctologist ID - techCOMPREHENSIVE METABOLIC [id number] 11:24:00 Test Item Value Reference Range Interpretation Comments TOTAL PROTEIN 6.8 gm/dL 6.0-8.3 (BEAKER) (test code = 770) ALBUMIN (BEAKER) 3.0 g/dL 3.5-5.0 L (test code = 1145) ALKALINE 73 U/L 40-150 PHOSPHATASE (BEAKER) (test code = 346) BILIRUBIN TOTAL 0.5 mg/dL 0.2-1.2 (BEAKER) (test code = 377) SODIUM (BEAKER) 135 meq/L 136-145 L (test code = 381) POTASSIUM (BEAKER) 3.9 meq/L 3.5-5.1 (test code = 379) CHLORIDE (BEAKER) 103 meq/L 98-107 (test code = 382) CO2 (BEAKER) (test 21 meq/L 22-29 L code = 355) BLOOD UREA 5 mg/dL 7-21 L NITROGEN (BEAKER) (test code = 354) CREATININE 0.58 mg/dL 0.57-1.25 (BEAKER) (test code = 358) GLUCOSE RANDOM 82 mg/dL 70-105 (BEAKER) (test code = 652) CALCIUM (BEAKER) 9.4 mg/dL 8.4-10.2 (test code = 697) AST (SGOT) 9 U/L 5-34 (BEAKER) (test code = 353) [...] not appl icable for dialysis patien ts Proctologist ID - PIAYA LSARS-COV2/RT-PCR ([facility])2022-05-26 11:16:02 Test Item Value Reference Range Interpretation Comments SARS-COV2/RT-PCR Negative Negative The SARS-Co V-2 target (test code = nucleic acids a re not 1969755) detected in thi s specimen. Negative result [...] revoked sooner. Fact Sheet for Healthcare Providers: https://www.[employer]/Documents/Xpert%20Xpress%20SARS%20CoV-2/Fact%20Sheets/3023802%19SFGY-PTU-8%2 0HEALTHCARE%20PROVIDERS%20FACT%20SHEET.pdf Fact Sheet for Healthcare Patients: https://www.[employer]/Documents/Xpert%20X press%20SARS%20CoV-2/Fact%20Sheets/3023801%96WFWP-UDW-9%20PATIENT%20FACT%20SHEE T.pdfCBC W/PLT COUNT & AUTO [id number] 10:36:11 Test Item Value Reference Range Interpretation Comments WHITE BLOOD CELL COUNT (BEAKER) 5.9 K/ L 3.5-10.5 (test code = 775) RED BLOOD CELL COUNT (BEAKER) 4.91 M/ L 4.63-6.08 (test code = 761) HEMOGLOBIN (BEAKER) (test code = 11.3 GM/DL 13.7-17.5 L 410) HEMATOCRIT (BEAKER) (test code = 35.5 % 40.1-51.0 L 411) MEAN CORPUSCULAR VOLUME (BEAKER) 72 fL 79-92 L (test code = 753) MEAN CORPUSCULAR HEMOGLOBIN 23.0 pg 25.7-32.2 L (BEAKER) (test code = 751) MEAN CORPUSCULAR HEMOGLOBIN CONC 31.8 GM/DL 32.3-36.5 L (BEAKER) (test code = 752) RED CELL DISTRIBUTION WIDTH 13.2 % 11.6-14.4 (BEAKER) (test code = 412) PLATELET COUNT (BEAKER) (test 433 K/CU MM 150-450 code = 756) MEAN [...] (test code = 437) NEUTROPHILS ABSOLUTE COUNT 4.39 K/ L 1.78-5.38 (BEAKER) (test code = 670) LYMPHOCYTES ABSOLUTE COUNT 0.81 K/ L 1.32-3.57 L (BEAKER) (test code = 414) MONOCYTES ABSOLUTE COUNT (BEAKER) 0.32 K/ L 0.30-0.82 (test code = 415) EOSINOPHILS ABSOLUTE COUNT 0.29 K/ L 0.04-0.54 (BEAKER) (test code = 416) BASOPHILS ABSOLUTE COUNT (BEAKER) 0.03 K/ L 0.01-0.08 (test code = 417) IMMATURE GRANULOCYTES-RELATIVE 0.30 % 0.00-1.00 PERCENT (BEAKER) (test code = 2801) [id number] 07:14:17 Test Item Value Reference Range Interpretation Comments FERRITIN (BEAKER) (test code = 254.34 ng/mL 5.00-275.00 361) Proctologist ID - MARCOCOMPLEMENT COMPONENT [id number] 06:53:04 Test Item Value Reference Range Interpretation Comments C4 COMPLEMENT (BEAKER) (test code = 8 mg/dL 15-57 L 394) Proctologist ID - PIAYA LCOMPLEMENT COMPONENT [id number] 06:53:04 Test Item Value Reference Range Interpretation Comments C3 COMPLEMENT (BEAKER) (test code = 72 mg/dL 82-193 L 393) Proctologist ID - PIAYA MARKO, TIBC, % SAT. (WITHOUT FERRITIN)2022-05-26 06:52:19 Test Item Value Reference Range Interpretation Comments IRON (BEAKER) (test code = 547) 20.0 ug/dL 40.0-160.0 L TOTAL IRON BINDING CAPACITY 234 ug/dL 250-450 L (BEAKER) (test code = 769) IRON % SATURATION (2) (BEAKER) 9 % 20-55 L (test code = 2590) Proctologist ID - PHOEBE [id number] 10:06:46 Test Item Value Reference Range Interpretation Comments CULTURE (BEAKER) (test No growth in 5 days code = 1095) Specimen received, ordered, and processed during a system downtime [facility] [id number] 13:52:35 Test Item Value Reference Range Interpretation Comments Result (test code = No growth 6463-4) IDALIA (test code = IDALIA) Specimen Received and Processed during Downtime in February 2022. [facility] [id number] 13:52:35 Test Item Value Reference Range Interpretation Comments Result (test code = No growth 6463-4) IDALIA (test code = IDALIA) Specimen Received and Processed during Downtime in February 2022. [facility] [id number] 13:52:35 Test Item Value Reference Range Interpretation Comments Result (test code = No growth 6463-4) IDALIA (test code = IDALIA) Specimen Received and Processed during Downtime in February 2022. [facility] [id number] 13:52:35 Test Item Value Reference Range Interpretation Comments CULTURE (BEAKER) (test code = 1095) No growth Specimen Received and Processed during Downtime in February 2022.COMPREHENSIVE METABOLIC [id number] 08:39:02 Test Item Value Reference Range Interpretation [...] for dialysis patien ts Clostridium difficile GDH [id number] 13:58:24 Test Item Value Reference Range Interpretation Comments C. Difficle Toxin Negative Negative (test code = 6914600986) C. Difficile [facility]DH Negative Negative No indicati on of Antigen (test code = Clostri dium 7340861700) difficile infection and n o colonization. Discontinue [...] [facility] use. Lab Interpretation Normal (test code = 24215-8) [facility] CenterClostridium difficile [facility] [id number] 13:58:24 Test Item Value Reference Range Interpretation Comments C. Difficle Toxin Negative Negative (test code = 2068931540) C. Difficile [facility]DH Negative Negative No indicati on of Antigen (test code = Clostri dium 8552776213) difficile infection and n o colonization. Discontinue [...] [facility] prior to clinical use. Lab Interpretation Normal (test code = 96761-9) [facility] CenterClostridium difficile [facility] [id number] 13:58:24 Test Item Value Reference Range Interpretation Comments C. Difficle Toxin Negative Negative (test code = 7338793847) C. Difficile [facility] Negative Negative No indicati on of Antigen (test code = Clostri dium 5169867498) difficile infection and n o colonization. Discontinue [...] [facility] prior to clinical use. Lab Interpretation Normal (test code = 65481-7) [facility] CenterC. DIFFICILE [facility] [id number] 13:58:24 Test Item Value Reference Range Interpretation Comments CDT TOXIN (test code Negative Negative = 6538039819) CDT GDH ANTIGEN (test Negative Negative No ind ication of code = 0976093374) Clostridi um difficile infection and n o colonization. Discontinue ent felicity isolation and t herapy. Testing performed by [employer] Rapid Cassette Assay. For GDH, published sensitivity of the assay is 98.7% compared to cytotoxicity testing. For Toxin AB, published sensitivity is 87.8% and specificity 99.4% compared to cytotoxicity testing.Verification of kit performance was done by the [facility] MicrobiologyLab prior to clinical use.GI Pathogen Profile by [id number] 08:47:53 Test Item Value Reference Range Interpretation Comments CAMPYLOBACTER PCR (test Not detected Not detected code = 42205-8) PLESIOMONAS SHIGELLOIDES Not detected Not detected (PCR) (test code = 66705-2) SALMONELLA (PCR) (test Not detected Not detected code = 17573-9) YERSINIA ENTEROCOLITICA Not detected Not detected (PCR) (test code = 70003-5) VIBRIO CHOLERAE (PCR) Not detected Not detected (test code = 27426-2) ENTEROAGGREGATIVE E. Not detected Not detected COLI (EAEC) BY PCR (test code = 13831-6) ENTEROPATHOGENIC E. COLI Not detected Not detected (EPEC) BY PCR (test code = 48603-6) ENTEROTOXIGENIC E. COLI Not detected Not detected (ETEC) LT/ST BY PCR (test code = 20164-9) SHIGA-LIKE Not detected Not detected TOXIN-PRODUCING E. COLI (STEC) STX1/STX2 (test code = 70966-9) E. COLI O157 (PCR) (test Not detected Not detected code = 97892-1) SHIGELLA/ENTEROINVASIVE Not detected Not detected E. COLI (EIEC) BY PCR (test code = 16868-8) CRYPTOSPORIDIUM (PCR) Not detected Not detected (test code = 90647-1) CYCLOSPORA CAYETANENSIS Not detected Not detected (PCR) (test code = 16671-7) ENTAMOEBA HISTOLYTICA Not detected Not detected (PCR) (test code = 64655-8) GIARDIA LAMBLIA (PCR) Not detected Not detected (test code = 10274-1) ADENOVIRUS F 40/41 (PCR) Not detected Not detected (test code = 23318-3) ASTROVIRUS (PCR) (test Not detected Not detected code = 92091-0) NOROVIRUS GI/GII (PCR) (test code = 84182-5) ROTAVIRUS A (PCR) (test Not detected Not detected code = 71029-2) SAPOVIRUS (I, II, IV, V) Not detected Not detected BY PCR (test code = 60758-7) VIBRIO Not detected Not detected (PARAHAEMOLYTICUS, VULNIFICUS) (test code = 70406-8) IDALIA (test code = IDALIA) Other viruses, [...] [facility] using the [employer] Gastrointestinal Panel. It is FDA cleared and has been verified and approved by the [facility] Diagnostics Laboratory for clinical use. This laboratory is CLIA-certified and [employer] (CAP)-accredited to perform high complexity testing. [facility] Center[facility] Pathogen Profile by [id number] 08:47:53 Test Item Value Reference Range Interpretation Comments CAMPYLOBACTER PCR (test Not detected Not detected code = 38606-6) PLESIOMONAS SHIGELLOIDES Not detected Not detected (PCR) (test code = 09477-0) SALMONELLA (PCR) (test Not detected Not detected code = 43058-6) YERSINIA ENTEROCOLITICA Not detected Not detected (PCR) (test code = 43292-9) VIBRIO CHOLERAE (PCR) Not detected Not detected (test code = 87952-6) ENTEROAGGREGATIVE E. Not detected Not detected COLI (EAEC) BY PCR (test code = 10364-2) ENTEROPATHOGENIC E. COLI Not detected Not detected (EPEC) BY PCR (test code = 29997-4) ENTEROTOXIGENIC E. COLI Not detected Not detected (ETEC) LT/ST BY PCR (test code = 14033-3) SHIGA-LIKE Not detected Not detected TOXIN-PRODUCING E. COLI (STEC) STX1/STX2 (test code = 41697-8) E. COLI O157 (PCR) (test Not detected Not detected code = 92636-4) SHIGELLA/ENTEROINVASIVE Not detected Not detected E. COLI (EIEC) BY PCR (test code = 65147-4) CRYPTOSPORIDIUM (PCR) Not detected Not detected (test code = 15875-4) CYCLOSPORA CAYETANENSIS Not detected Not detected (PCR) (test code = 48927-7) ENTAMOEBA HISTOLYTICA Not detected Not detected (PCR) (test code = 87076-2) GIARDIA LAMBLIA (PCR) Not detected Not detected (test code = 49592-9) ADENOVIRUS F 40/41 (PCR) Not detected Not detected (test code = 36003-4) ASTROVIRUS (PCR) (test Not detected Not detected code = 89934-0) NOROVIRUS GI/GII (PCR) (test code = 91531-0) ROTAVIRUS A (PCR) (test Not detected Not detected code = 37713-7) SAPOVIRUS (I, II, IV, V) Not detected Not detected BY PCR (test code = 83148-0) VIBRIO Not detected Not detected (PARAHAEMOLYTICUS, VULNIFICUS) (test code = 58343-1) IDALIA (test code = IDALIA) Other viruses, [...] [facility] using the [employer] Gastrointestinal Panel. It is FDA cleared and has been verified and approved by the [facility] Diagnostics Laboratory for clinical use. This laboratory is CLIA-certified and [employer] ([employer])-accredited to perform high complexity testing. [facility] Center[facility] Profile by [id number] 08:47:53 Test Item Value Reference Range Interpretation Comments CAMPYLOBACTER PCR (test Not detected Not detected code = 87272-8) PLESIOMONAS SHIGELLOIDES Not detected Not detected (PCR) (test code = 83800-6) SALMONELLA (PCR) (test Not detected Not detected code = 35080-2) YERSINIA ENTEROCOLITICA Not detected Not detected (PCR) (test code = 73372-0) VIBRIO CHOLERAE (PCR) Not detected Not detected (test code = 50245-0) ENTEROAGGREGATIVE E. Not detected Not detected COLI (EAEC) BY PCR (test code = 16942-6) ENTEROPATHOGENIC E. COLI Not detected Not detected (EPEC) BY PCR (test code = 16543-0) ENTEROTOXIGENIC E. COLI Not detected Not detected (ETEC) LT/ST BY PCR (test code = 43967-7) SHIGA-LIKE Not detected Not detected TOXIN-PRODUCING E. COLI (STEC) STX1/STX2 (test code = 87612-5) E. COLI O157 (PCR) (test Not detected Not detected code = 27221-2) SHIGELLA/ENTEROINVASIVE Not detected Not detected E. COLI (EIEC) BY PCR (test code = 46940-8) CRYPTOSPORIDIUM (PCR) Not detected Not detected (test code = 95549-5) CYCLOSPORA CAYETANENSIS Not detected Not detected (PCR) (test code = 36755-0) ENTAMOEBA HISTOLYTICA Not detected Not detected (PCR) (test code = 27572-0) GIARDIA LAMBLIA (PCR) Not detected Not detected (test code = 43444-8) ADENOVIRUS F 40/41 (PCR) Not detected Not detected (test code = 51059-2) ASTROVIRUS (PCR) (test Not detected Not detected code = 26422-9) NOROVIRUS GI/GII (PCR) (test code = 98782-9) ROTAVIRUS A (PCR) (test Not detected Not detected code = 58207-7) SAPOVIRUS (I, II, IV, V) Not detected Not detected BY PCR (test code = 93292-3) VIBRIO Not detected Not detected (PARAHAEMOLYTICUS, VULNIFICUS) (test code = 43601-2) IDALIA (test code = IDALIA) Other viruses, [...] [facility] using the [employer] Gastrointestinal Panel. It is FDA cleared and has been verified and approved by the [facility] Diagnostics Laboratory for clinical use. This laboratory is CLIA-certified and [employer] (CAP)-accredited to perform high complexity testing. [facility] CenterGI PATHOGEN PROFILE BY [id number] 08:47:53 Test Item Value Reference Range Interpretation [...] Not detected BY PCR (test code = 4905953) ENTEROPATHOGENIC E. COLI (EPEC) Not detected Not detected BY PCR (test code = 9405129) ENTEROTOXIGENIC E. COLI (ETEC) Not detected Not detected LT/ST BY PCR (test code = 4716967) SHIGA-LIKE TOXIN-PRODUCING E. Not detected Not detected COLI (STEC) PCR (test code = 7890560) E. COLI O157 (PCR) (test code = Not detected Not detected 20151225) SHIGELLA/ENTEROINVASIVE E. COLI Not detected Not detected (EIEC) BY PCR (test code = 8461010) CRYPTOSPORIDIUM (PCR) (test code Not detected Not [...] 20160122) NOROVIRUS GI/GII (PCR) (test code = 20160123) ROTAVIRUS A (PCR) (test code = Not detected Not detected 20160124) SAPOVIRUS (I, II, IV, V) BY PCR Not detected Not detected (test code = 20160125) VIBRIO (PARAHAEMOLYTICUS, Not detected Not detected VULNIFICUS) (test code = 4595154) Other viruses, parasites and bacteria not targeted by this PCR panel cannot be excluded; therefore clinical correlation and follow up of serology, culture results, and other molecular studies is required. The results are not intended to be used as the sole means for clinical diagnosis or patient management decisions. This sample was tested at the [facility] Molecular Diagnostics Laboratory using the [employer] Gastrointestinal Panel. It is FDA cleared and [...] (test code = No acid fast bacilli 81785-5) [facility]2022-03-29 15:57:56 Test Item Value Reference Range Interpretation Comments Result (test code = No acid-fast bacilli 6463-4) isolated in 42 days AFB Smear (test code = No acid fast bacilli 26912-5) seen [facility] smear (non-sputum)2022-03-29 15:57:56 Test Item Value Reference Range Interpretation Comments Result (test code = No acid-fast bacilli 6463-4) isolated in 42 days AFB Smear (test code = No acid fast bacilli 79117-6) seen [facility] + SMEAR (NON-SPUTUM)2022-03-29 15:57:56 Test Item Value Reference Range Interpretation Comments CULTURE (BEAKER) (test No acid-fast bacilli code = 1095) isolated in 42 days AFB SMEAR (BEAKER) No acid fast bacilli (test code = 994) seen Fungus culture + [id number] 21:09:03 Test Item Value Reference Range Interpretation Comments Result (test code = No fungus isolated in 6463-4) 28 days Fungus Smear (test No fungi seen code = 1406) [facility] Center[facility] + [id number] 21:09:03 Test Item Value Reference Range Interpretation Comments Result (test code = No fungus isolated in 6463-4) 28 days Fungus Smear (test No fungi seen code = 1406) [facility] + [id number] 21:09:03 Test Item Value Reference Range Interpretation Comments Result (test code = No fungus isolated in 6463-4) 28 days Fungus Smear (test No fungi seen code = 1406) [facility] + [id number] 21:09:03 Test Item Value Reference Range Interpretation Comments CULTURE (BEAKER) (test No fungus isolated in code = 1095) 28 days FUNGUS SMEAR (BEAKER) No fungi seen (test code = 1406) COMP. METABOLIC PANEL (64522)2022-03-14 20:23:20 Test Item Value Reference Range Interpretation Comments NA (test code = 139 mmol/L 135-145 1294168406) K (test code = 4.4 mmol/L 3.5-5.0 2763593925) CL (test code = 98 mmol/L 98-108 2491176183) CO2 TOTAL (test code 30 mmol/L 23-31 = 6603431335) AGAP (test code = 2-16 9459836698) BUN (test code = 16 mg/dL 7-23 2393086635) GLUCOSE (test code = 104 mg/dL 70-110 9287005010) CREATININE (test code 0.64 mg/dL 0.50-1.04 = 8689190242) TOTAL BILI (test code 0.5 mg/dL 0.1-1.1 = 9768906104) CALCIUM (test code = 10.0 mg/dL 8.6-10.6 5257356450) T PROTEIN (test code 8.1 g/dL 6.3-8.2 = 6459163136) ALBUMIN (test code = 4.4 g/dL 3.5-5.0 7500136802) ALK PHOS (test code = 98 U/L 34-122 2597961055) ALTv (test code = 31 U/L 5-35 1742-6) AST(SGOT) (test code 33 U/L 13-40 = 9355636319) eGFR (test code = mL/min/1.73m2 0225049345) IDALIA (test code = IDALIA) Association of [...] or urine or abnormalities in imaging tests). [facility] 20:23[facility]20 Test Item Value Reference Range Interpretation Comments LIPASE (test code = 0342466617) 105 U/L 0-220 Lab Interpretation (test code = Normal 10632-4) [facility]woodCB WITH [id number] 20:11:38 Test Item Value Reference Range Interpretation [...] RDW-SD (test code = 48.9 fL 39.0-49.9 46717-7) RDW-CV (test code = 17.2 % 12.0-15.5 H 788-0) PLT (test code = See_Comment [Automated 777-3) message] The sy stem which generated this result transmitted reference range : 166 - 358 10*3/ ?L. The reference r colby was not used to interpret this result as normal/abnormal . MPV (test code = 10.1 fL 9.5-12.9 82593-9) NRBC/100 WBC (test See_Comment [Automat ed code = 2720556911) message] The system which generated this result transmitted reference range : 0.0 - 10.0 /100 WBCs. The refer ence range was not u sed to interpret th is result as normal/abnormal . NRBC x10^3 (test code See_Comment [Auto mated = 4292626628) message] The s ystem which generated this result transmitted reference range : 10*3/?L. The reference range was not used to interpret this result as normal/abnormal . GRAN MAT (NEUT) % 76.3 % (test code = 770-8) IMM GRAN % (test code 0.50 % = 0807030509) LYMPH % (test code = 14.1 % 736-9) MONO % (test code = 6.4 % 5905-5) EOS % (test code = 1.7 % 713-8) BASO % (test code = 1.0 % 706-2) GRAN MAT x10^3(ANC) 7.94 10*3/uL 1.88-7.09 H (test code = 3221106980) IMM GRAN x10^3 (test 0.05 10*3/uL 0.00-0.06 code = 9583908960) LYMPH x10^3 (test code 1.46 10*3/uL 1.32-3.29 = 731-0) MONO x10^3 (test code 0.66 10*3/uL 0.33-0.92 = 742-7) EOS x10^3 (test code = 0.18 10*3/uL 0.03-0.39 711-2) BASO x10^3 (test code 0.10 10*3/uL 0.01-0.07 H = 704-7) Lab Interpretation Abnormal (test code = 71407-3) [facility] MET[facility]OL[facility] [id number] 06:05:57 Test Item Value Reference Range Interpretation [...] not appl icable for dialysis patien ts Proctologist ID - PIJOVI Landintor ID - PIJOVI LCBC (HEMOGRAM ONLY)2022-03-12 05:32:20 [...] 0-0 (BEAKER) (test code = 413) CT, [id number] 09:26:00Unlisted Reason for Exam - Click Yes and Enter Reason Below->NoIs this for enterography?->NoWill this procedure require oral contrast?->Yes [facility]ENTERName: [facility]ANGIE [facility] : 2000 Sex: MFINALREPORT TECHNIQUE: CT of the abdomen and pelvis was performed following the uneventful administration of 100 mL of Isovue 370 intravenous contrast according to standard protocol. Indication: Abdominal abscess COMPARISON: CT of the abdomen and pelvis dated 03/01/2022 and 02/05/2022 Findings: Lower Chest:Normal. Liver: Normal. Gallbladder and Bile Ducts: Normal. Pancreas: Normal. Adrenals: Normal. Kidneys: Normal. Gastrointestinal: Gastric wall thickening is seen, likely reactive. The stomach and visualized loops of large and small bowel are unremarkable. Normal appendix. Spleen/Mesentery/Peritoneum/Retroperitoneum: Splenic granulomas are seen. Perisplenic inflammation is seen Since the prior study, there has been interval decrease in size multiloculated air and fluid collectionsin the left upper quadrant abutting the spleen and greater curvature of the stomach, largest pocketsmeasuring 3.6 x 1.9 cm (axial image 17) and 2.2 x 3.1 cm (axial image 21). Bladder:Normal. Reproductive Organs: Normal Vasculature: No vascular abnormality is present. Unchanged narrowing of the splenic vein. Bones: Bone windows demonstrate no suspicious lytic or blastic lesions. The visible osseous structures are intact. Soft tissues: Postsurgical changes of the anterior abdominal wall. Impression: Persistent but overall decreased appearance of multiloculated collections in the left upper quadrant b etween the greater curvature of the stomach and spleen. Reactive inflammation is seen in this region. Gastric wall thickening likely reactive. Signed: Cira Dorado MDReport Verified Date/Time: 03/11/2022 09:26:38 Reading Location: [address] Transitional Reading Room BASIC METABOLIC [id number] 06:38:12 Test Item Value Reference Range Interpretation [...] not appl icable for dialysis patien ts Proctologist ID - ADMINCBC W/PLT COUNT & AUTO [id number] 05:54:20 Test Item Value Reference Range Interpretation [...] = 2801) RAD, CHEST, 1 VIEW, NON [id number] 15:36:0015T-10 [facility] : 2000 Sex: MFINAL REPORT [...] Garcia Verified Date/Time: 03/06/2022 15:36:20 Reading Location: [address] Reading Room CT, [id number] 09:42:00Pain. Hx LUQ collection assess for possible to drain now as well. [facility] : 2000 Sex: MFINAL REPORT [...] Page MDReport Verified Date/Time: 03/01/2022 09:42:02 FL, ASPIRATION/[id number] 16:11:00[facility] : 2000 Sex: MFINAL REPORT [...] of approximately 3 cc of Isovue-300 contrast. Nurse Researcher images saved in the patient's medical record. [...] of approximately 3 cc of Isovue-300 contrast. Nurse Researcher images saved in the patient's medical record. [...] MDReport Verified Date/Time: 02/27/2022 16:11:07 Reading Location: [facility] C013X Ortho Consult Reading Room MR, EXTREMITY, LOWER, HIP JOINT, WITHOUT CONTRAST, [id number] 15:21:00 [facility] CENTER[facility]: VANGIE OVALLE : 2000 Sex: MFINAL REPORT MRI OF THE LEFT HIP HISTORY: Left hip pain, avascular necrosis, osteoarthritis COMPARISON: CT pelvis of 02/05/2022 TECHNIQUE: Multiplanar multisequence MRI of the left hip wasperformed without contrast. Examination included coronal large fgfxk-zz-shvw sequences of the pelvisand bilateral hips as well as dedicated small ihmrq-ep-detv unilateral axial and sagittal oblique sequences of [...] severe left hip osteoarthritis. Signed: Robert Yeung [facility] HOSPITALeport Verified Date/Time: 02/25/2022 15:21:17 MR, EXTREMITY, LOWER, HIP JOINT, WITHOUT CONTRAST, [id number] 15:17:00 [facility] CENTERName: VANGIE OVALLE : 2000 Sex: MFINAL REPORT MRI OF THE RIGHT HIP HISTORY: Right hip pain, avascular necrosis, arthritis COMPARISON: CT pelvis of 02/05/2022 TECHNIQUE: Multiplanar multisequence MRI of the right hip was performed without contrast. Examination included coronal large pxtzi-ky-jrif sequences of the pelvis and bilateral hips as well as dedicated small bwhas-kk-uuow unilateral axial and sagittal oblique sequences of [...] Date/Time: 02/25/2022 15:17:32 RAD, HIPS, 2 VIEWS, [id number] 15:03:00 [facility] : 2000 Sex: MFINALREPORT TECHNIQUE: 4 views of the bilateral hips. INDICATION: EVAL - AVASCULAR NECROSIS. COMPARISON: CTs from 02/05/2022 and 02/22/2022 FINDINGS:Complete loss of the joint space in the left hip with near complete joint space loss in the right hip. There is a prominent left hip osteophyte. 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 No definite avascular necrosis. Signed: Yash Lux MDRmikeort Verified Date/Time: 02/24/2022 15:03:53 Reading Location: [facility] B1 C013Y CT Body Reading Room - CT ABD PELVIS W/O CONT 2022-02-20 12:09:00 [facility] : 2000 Sex: M FAX: Y Willard Crouch Jr [phone] [place]: St: REG Name: VANGIE OVALLE [facility] : 2000 Age/S: 22/M [address] Unit: [id number] Loc: [place] [address] Phys: Willard Crouch Jr, MD Acct: [id number] Dis Date: Status: REG CLI PHONE #: [phone] Exam Date: 02/20/2022 1115 FAX #: [phone] Reason: FREQUENT BM EXAMS: CPT CODE: [id number] CT ABD PELVIS W/O CONT 03621 EXAM: - CT ABD PELVIS W/OCONT INDICATION: [...] seen. Vascular: Aorta does not appear aneurysmal. Lymphnodes: No enlarged lymph nodes seen. Peritoneum: No ascites or free air is seen. PAGE 1 Signed Report (CONTINUED) FAX: Willard Vaughn Jr [phone] [place]: St: REG Name: VANGIE OVALLE [facility] : 2000 Age/S: 22/M [address] Unit: [id number] Loc: [place] [address] Phys: Willard Crouch Jr, MD Acct: [id number] Dis Date: Status: REG CLI PHONE #: [phone] Exam Date: 02/20/2022 1115 FAX#: [phone] Reason: FREQUENT BM EXAMS: CPT CODE: [id number] CT ABD PELVIS W/O CONT 37562 (Continued) Genitourinary:Urinary bladder appears to be mildly [...] Technologist: LAMBERTO SHAFFER Trnscrd Dt/Tm: 02/20/2022 (1209) Adalberto.AH26 PAGE 2 Signed ReportDOUBLE-STRANDED DNA (DSDNA) [id number] 12:26:46 Test Item Value Reference Range Interpretation Comments ANTI-DNA DS (BEAKER) (test code = Negative Negative 1055) Anaerobic [id number] 09:53:02 Test Item Value Reference Range Interpretation Comments Result (test code = No anaerobes isolated 6463-4) [facility] [id number] 09:53:02 Test Item Value Reference Range Interpretation Comments Result (test code = No anaerobes isolated 6463-4) [facility] [id number] 09:53:02 Test Item Value Reference Range Interpretation Comments Result (test code = No anaerobes isolated 6463-4) [facility] [id number] 09:53:02 Test Item Value Reference Range Interpretation Comments Result (test code = No anaerobes isolated 6463-4) [facility] [id number] 09:53:02 Test Item Value Reference Range Interpretation Comments Result (test code = No anaerobes isolated 6463-4) [facility] [id number] 09:53:02 Test Item Value Reference Range Interpretation Comments CULTURE (BEAKER) (test No anaerobes isolated code = 1095) COMPLEMENT COMPONENT [id number] 13:18:38 Test Item Value Reference Range Interpretation Comments C3 COMPLEMENT (BEAKER) (test code = 103 mg/dL 82-193 393) Proctologist ID - AAHAMIDCOMPLEMENT COMPONENT [id number] 13:18:37 Test Item Value Reference Range Interpretation Comments C4 COMPLEMENT (BEAKER) (test code = 11 mg/dL 15-57 L 394) Proctologist ID - AAHAMIDSURGICALLY OBTAINED CULTURE + GRAM [id number] 11:03:20 Test Item Value Reference Range Interpretation [...] No organisms seen (BEAKER) (test code = 616262) [id number] 06:37:27 Test Item Value Reference Range Interpretation Comments PHOSPHORUS (BEAKER) (test code = 3.5 mg/dL 2.3-4.7 604) Proctologist ID - PIAYA LBASIC METABOLIC [id number] 06:37:26 Test Item Value Reference Range Interpretation [...] not appl icable for dialysis patien ts Proctologist ID - MARIBEL [id number] 06:37:26 Test Item Value Reference Range Interpretation Comments MAGNESIUM (BEAKER) (test code = 1.5 mg/dL 1.6-2.6 L 627) Proctologist ID - MARIBEL LCBC W/PLT COUNT & AUTO [id number] 05:01:09 Test Item Value Reference Range Interpretation [...] (BEAKER) (test code = 2801) BASIC METABOLIC [id number] 06:02:45 Test Item Value Reference Range Interpretation [...] not appl icable for dialysis patien ts Proctologist ID - ALVINA MCBC W/PLT COUNT & AUTO [id number] 05:42:07 Test Item Value Reference Range Interpretation [...] = 2801) CBC W/PLT COUNT & AUTO [id number] 05:09:33 Test Item Value Reference Range Interpretation [...] 0-1 PERCENT (BEAKER) (test code = 2801) [id number] 04:56:25 Test Item Value Reference Range Interpretation Comments MAGNESIUM (BEAKER) (test code = 1.6 mg/dL 1.6-2.6 627) Proctologist ID - MARIBEL [id number] 04:56:25 Test Item Value Reference Range Interpretation Comments PHOSPHORUS (BEAKER) (test code = 2.7 mg/dL 2.3-4.7 604) Proctologist ID - MARIBEL LBASIC METABOLIC [id number] 04:56:24 Test Item Value Reference Range Interpretation [...] not appl icable for dialysis patien ts Proctologist ID - MAILEAYA [id number] 10:33:28 Test Item Value Reference Range Interpretation Comments PHOSPHORUS (BEAKER) (test code = 3.0 mg/dL 2.3-4.7 604) Proctologist ID - ALVINA MBASIC METABOLIC [id number] 10:33:27 Test Item Value Reference Range Interpretation [...] not appl icable for dialysis patien ts Proctologist ID - ALVINA [id number] 10:33:27 Test Item Value Reference Range Interpretation Comments MAGNESIUM (BEAKER) (test code = 1.7 mg/dL 1.6-2.6 627) Proctologist ID - ALVINA MCBC W/PLT COUNT & AUTO [id number] 10:29:43 Test Item Value Reference Range Interpretation [...] PERCENT (BEAKER) (test code = 2801) SPIN/CONCENTRATION [id number] 06:56:34 Test Item Value Reference Range Interpretation Comments Concentration charged (test code = Done 2657) [facility] [id number] 06:56:34 Test Item Value Reference Range Interpretation Comments Concentration charged (test code = Done 2657) [facility] [id number] 06:56:34 Test Item Value Reference Range Interpretation Comments Concentration charged (test code = Done 2657) [facility] [id number] 06:56:34 Test Item Value Reference Range Interpretation Comments Concentration charged (test code = Done 2657) [facility] [id number] 06:56:34 Test Item Value Reference Range Interpretation Comments Concentration charged (test code = Done 2657) [facility] [id number] 06:56:34 Test Item Value Reference Range Interpretation Comments CONCENTRATION CHARGED (BEAKER) (test Done code = 2657) SARS-CoV2/RT-PCR (Asymptomatic ONLY)2022-02-07 12:35:45 Test Item Value Reference Range Interpretation Comments SARS-COV2/RT-PCR Negative Not Detected, (test code = Negative, See 51894-4) external report for linked test SARS-COV-2 [facility] PERFORM[facility] (test code = 66859-5) IDALIA (test code = Negative result for [...] of the Act. Fact Sheet for Healthcare Providers:https://www.Qzzr/sites/default/f anup/product/documents/F act_Sheet_HC_Providers_L hhj_LFPC-LgT-8.pdf Fact Sheet for Healthcare Patients:https://www.[employer]/sites/default/fi les/product/documents/Fa ct_Sheet_Patients_Lyra_S ARS-CoV-2.pdf Performing Laboratory:[facility] [place] [address] [facility]/RT-[facility] (Asymptomatic ONLY)2022-02-07 12:35:45 Test Item Value Reference Range Interpretation Comments SARS-COV2/RT-PCR Negative Not Detected, (test code = Negative, See 84245-2) external report for linked test SARS-COV-2 [facility] PERFORM[facility] (test code = 08688-1) IDALIA (test code = Negative result for [...] of the Act. Fact Sheet for Healthcare Providers:https://www.Qzzr/sites/default/f anup/product/documents/F act_Sheet_HC_Providers_L rnt_FUKS-RaD-9.pdf Fact Sheet for Healthcare Patients:https://www.[employer]/sites/default/fi les/product/documents/Fa ct_Sheet_Patients_Lyra_S ARS-CoV-2.pdf Performing Laboratory:[facility] [place] [address] [facility] CenterARS[facility]/RT-[facility] (Asymptomatic ONLY)2022-02-07 12:35:45 Test Item Value Reference Range Interpretation Comments SARS-COV2/RT-PCR Negative Not Detected, (test code = Negative, See 91276-1) external report for linked test SARS-COV-2 [facility] PERFORM[facility] (test code = 86769-8) IDALIA (test code = Negative result for [...] of the Act. Fact Sheet for Healthcare Providers:https://www.[employer] idel.[employer]/sites/default/f anup/product/documents/F act_Sheet_HC_Providers_L mvl_ZEVU-ZbH-9.pdf Fact Sheet for Healthcare Patients:https://www.sandie del.com/sites/default/fi les/product/documents/Fa ct_Sheet_Patients_Lyra_S ARS-CoV-2.pdf Performing Laboratory:[facility] [place] [address] [facility] CenterARS-[facility]OV2/RT-PCR ([facility])2022-02-07 12:35:45 Test Item Value Reference Range Interpretation Comments SARS-COV2/RT-PCR (test Negative Not Detected, Negative, code = 0162654) See external report for linked test SARS-COV-2 PERFORMING LAB [facility] (test code = 9578170) Negative result for this test determines that [...] of the Act.Fact Sheet for Healthcare Prov iders:https://www.[employer].com/sites/default/files/product/documents/Fact_Sheet_HC _Xyfktqdqm_Fzyu_YUKO-QlB-1.pdfFact Sheet for Healthcare Patients:https://www.[employer]ab/sites/default/files/product/docume nts/Utqk_Ccnfm_Twaiisrr_Voex_TRLE-XgV-6.pdfPerforming Laboratory:[place] [address], [place] [id number] 05:26:59 Test Item Value Reference Range Interpretation Comments MAGNESIUM (BEAKER) (test code = 1.7 mg/dL 1.6-2.6 627) Proctologist ID - ALVINA [id number] 05:26:59 Test Item Value Reference Range Interpretation Comments PHOSPHORUS (BEAKER) (test code = 3.3 mg/dL 2.3-4.7 604) Proctologist ID - ALVINA MBASIC METABOLIC [id number] 05:26:58 Test Item Value Reference Range Interpretation [...] not appl icable for dialysis patien ts Proctologist ID - ALVINA MPROTHROMBIN TIME/[id number] 04:21:01 Test Item Value Reference Range Interpretation Comments PROTIME (BEAKER) 14.9 seconds 11.9-14.2 H (test code = 759) INR (BEAKER) (test 1.24 See_Comment [Automat ed message] code = 370) The system [facility] generated this result transmitted ref erence range: <=5.90. The reference range was not used to int erpret this result as normal/abnormal . RECOMMENDED COUMADIN/WARFARIN INR THERAPY RANGESSTANDARD DOSE: 2.0 - 3.0 Includes: PROPHYLAXIS for venous thrombosis, systemic embolization; TREATMENT for venous thrombosis and/or pulmonary embolus.HIGH RISK: Target INR is 2.5-3.5 for patients with mechanical heart valves.CBC W/PLT COUNT & AUTO [id number] 04:04:31 Test Item Value Reference Range Interpretation [...] = 2801) RAD, CHEST, 1 VIEW, NON [id number] 19:52:00Reason for exam:->post picc line insertionShould this be performed at the bedside?->Yes [facility] : 2000 Sex: MFINAL REPORT [...] no acute bony abnormality. 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 No splenic artery aneurysm. Patent main portal vein and superior mesenteric vein.Abdominal wall: Postsurgical changes in the anterior abdominal wall.Bones: Severe degenerative changesof the left hip with wygi-gc-lxum and mild bony remodeling. IMPRESSION: 1.Minimal change from 01/31/20 22, rim-enhancing collections of liquid and gas near the pancreatic tail, largest in the gastrosplenic ligament measures 6.1 cm and along the left anterior pararenal space measures 4 x 2.1 cm, likely infected and grossly similar in size to 01/30/2022. 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 Signed: Felicity Novak Verified Date/Time: 02/05/2022 11:33:01 Reading Location: [facility] B1 C013Y CT Body Reading Room MAGNESIUM 2022-02-05 05:39:00 Test Item Value Reference Range Interpretation Comments MAGNESIUM (BEAKER) (test code = 1.6 mg/dL 1.6-2.6 627) Proctologist ID - PIAYA [id number] 05:39:00 Test Item Value Reference Range Interpretation Comments PHOSPHORUS (BEAKER) (test code = 2.5 mg/dL 2.3-4.7 604) Proctologist ID - PIAYA LBASIC METABOLIC [id number] 05:38:59 Test Item Value Reference Range Interpretation [...] not appl icable for dialysis patien ts Proctologist ID - PIAYA LCBC W/PLT COUNT & AUTO [id number] 04:47:57 Test Item Value Reference Range Interpretation [...] PERCENT (BEAKER) (test code = 2801) POC-Glucose [id number] 07:40:25 Test Item Value Reference Range Interpretation Comments POC-Glucose Meter (test 153 mg/dL 70-110 H : TE STED AT [facility] code = 1538) [address] [place] [address], 770 30: Proctologist/Techni dakota ID = [id number] for RAHUL, CONCEPCION Lab Interpretation (test Abnormal code = 36840-5) [facility]-Glucose [id number] 07:40:25 Test Item Value Reference Range Interpretation Comments POC-Glucose Meter (test 153 mg/dL 70-110 H : TE STED AT [facility] code = 1538) [address] [place] [address], 770 30: Proctologist/Techni dakota ID = [id number] for RAHUL, CONCEPCION Lab Interpretation (test Abnormal code = 52714-9) [facility]-Glucose [id number] 07:40:25 Test Item Value Reference Range Interpretation Comments POC-Glucose Meter (test 153 mg/dL 70-110 H : TE STED AT [facility] code = 1538) [address] [place] [address], 770 30: Proctologist/Techni dakota ID = [id number] for RAHUL, CONCEPCION Lab Interpretation (test Abnormal code = 88090-2) [facility]-GLUCOSE [id number] 07:40:25 Test Item Value Reference Range Interpretation Comments POC-GLUCOSE METER 153 mg/dL 70-110 H : TESTED A T [facility] 6720 (BEAKER) (test code = [place], 1538) [address]: Proctologist/Techni dakota ID = [id number] for CONCEPCION CORONADO [id number] 05:56:41 Test Item Value Reference Range Interpretation Comments PHOSPHORUS (BEAKER) (test code = 3.4 mg/dL 2.3-4.7 604) Proctologist ID - ALVINA MBASIC METABOLIC [id number] 05:56:40 Test Item Value Reference Range Interpretation [...] not appl icable for dialysis patien ts Proctologist ID - ALVINA MCBC W/PLT COUNT & AUTO [id number] 05:19:20 Test Item Value Reference Range Interpretation [...] PERCENT (BEAKER) (test code = 2801) POCT-GLUCOSE [id number] 18:17:28 Test Item Value Reference Range Interpretation Comments POC-GLUCOSE METER 119 mg/dL 70-110 H : TESTED Daphne Miller [facility] 6720 (BEAKER) (test code = [place], 1538) [address]: Proctologist/Techni dakota ID = [id number] for Fee, Melia [place], FLUORO, NON-SPECIFIC, UP TO 1 [id number] 12:15:00Reason for exam:- >Pancreatitis with fluid collection [facility] : 2000 Sex: MAn imaging unit was utilized for this procedure. No radiologist interpretation was requested. Refer to theEMR for findings. Refer to PACS for any patient radiation dose information.[id number] 06:20:54 Test Item Value Reference Range Interpretation Comments PHOSPHORUS (BEAKER) (test code = 4.1 mg/dL 2.3-4.7 604) Proctologist ID - BSBASIC METABOLIC [id number] 06:20:53 Test Item Value Reference Range Interpretation [...] not appl icable for dialysis patien ts Proctologist ID - BSCBC W/PLT COUNT & AUTO [id number] 06:17:18 Test Item Value Reference Range Interpretation [...] PERCENT (BEAKER) (test code = 2801) PROTHROMBIN TIME/[id number] 05:56:55 Test Item Value Reference Range Interpretation Comments PROTIME (BEAKER) 14.6 seconds 11.9-14.2 H (test code = 759) INR (BEAKER) (test 1.21 See_Comment [Automat ed message] code = 370) The system [facility] generated this result transmitted ref erence range: <=5.90. The reference range was not used to int erpret this result as normal/abnormal . RECOMMENDED COUMADIN/WARFARIN INR THERAPY RANGESSTANDARD DOSE: 2.0 - 3.0 Includes: PROPHYLAXIS for venous thrombosis, systemic embolization; TREATMENT for venous thrombosis and/or pulmonary embolus.HIGH RISK: Target INR is 2.5-3.5 for patients with mechanical heart valves.SARS-COV2/RT-PCR ([facility]) 2022-02-01 11:35:08 Test Item Value Reference Range Interpretation Comments SARS-COV2/RT-PCR Negative Negative The SARS-Co V-2 target (test code = nucleic acids a re not 5568372) detected in thi s specimen. Negative result [...] revoked sooner. Fact Sheet for Healthcare Providers: https://www.Rapportive.1DocWay m/Documents/Xpert%20Xpress%20SARS%20CoV-2/Fact%20Sheets/302-3802%34HZGF-LAS-4%20 HEALTHCARE%20PROVIDERS%20FACT%20SHEET.pdf Fact Sheet for Healthcare Patients: https://www.[employer]/Documents/Xpert%20Xp ress%20SARS%20CoV-2/Fact%20Sheets/302-3801%14RXUM-LKT-3%20PATIENT%20FACT%20SHEET .xvgITCFQXZKFB6050-34-65 08:00:14 Test Item Value Reference Range Interpretation Comments PHOSPHORUS (BEAKER) (test code = 3.9 mg/dL 2.3-4.7 604) Proctologist ID - PIAYA LBASIC METABOLIC [id number] 08:00:13 Test Item Value Reference Range Interpretation [...] not appl icable for dialysis patien ts Proctologist ID - PIAYA LCBC W/PLT COUNT & AUTO [id number] 06:53:15 Test Item Value Reference Range Interpretation [...] PERCENT (BEAKER) (test code = 2801) PROTHROMBIN TIME/[id number] 06:23:20 Test Item Value Reference Range Interpretation Comments PROTIME (BEAKER) 14.1 seconds 11.9-14.2 (test code = 759) INR (BEAKER) (test 1.16 See_Comment [Automat ed message] code = 370) The system [facility] generated this result transmitted ref erence range: <=5.90. The reference range was not used to int erpret this result as normal/abnormal . RECOMMENDED COUMADIN/WARFARIN INR THERAPY RANGESSTANDARD DOSE: 2.0 - 3.0 Includes: PROPHYLAXIS for venous thrombosis, systemic embolization; TREATMENT for venous thrombosis and/or pulmonary embolus.HIGH RISK: Target INR is 2.5-3.5 for patients with mechanical heart valves.CT, [id number] 11:26:00Unlisted Reason for Exam - Click Yes and Enter Reason Below->NoIs this for enterography?->NoWill this procedure require oral contrast?->Yes [facility] : 2000 Sex: MFINAL [...] Young MDReport Verified Date/Time:01/31/2022 11:26:33 Reading Location: [facility] B1 C013Y CT Body Reading Room BASIC METABOLIC [id number] 07:01:22 Test Item Value Reference Range Interpretation [...] not appl icable for dialysis patien ts Proctologist ID - ALVINA [id number] 07:01:21 Test Item Value Reference Range Interpretation Comments PHOSPHORUS (BEAKER) 3.6 mg/dL 2.3-4.7 Specimen slightly (test code = 604) hemolyzed Proctologist ID - ALVINA MCBC W/PLT COUNT & AUTO [id number] 06:23:58 Test Item Value Reference Range Interpretation [...] H PERCENT (BEAKER) (test code = 2801) [id number] 07:03:32 Test Item Value Reference Range Interpretation Comments PHOSPHORUS (BEAKER) 3.5 mg/dL 2.3-4.7 Specimen slightly (test code = 604) hemolyzed Proctologist ID - MARIBEL LBASIC METABOLIC [id number] 07:03:32 Test Item Value Reference Range Interpretation [...] not appl icable for dialysis patien ts Proctologist ID - MARIBEL LCBC W/PLT COUNT & AUTO [id number] 06:30:07 Test Item Value Reference Range Interpretation [...] H PERCENT (BEAKER) (test code = 2801) [id number] 08:28:15 Test Item Value Reference Range Interpretation Comments PHOSPHORUS (BEAKER) 3.5 mg/dL 2.3-4.7 Specimen slightly (test code = 604) hemolyzed Proctologist ID - SHREE WBASIC METABOLIC [id number] 05:22:30 Test Item Value Reference Range Interpretation [...] not appl icable for dialysis patien ts Proctologist ID - SHREE WCBC W/PLT COUNT & AUTO [id number] 04:54:08 Test Item Value Reference Range Interpretation [...] (BEAKER) (test code = 2801) BASIC METABOLIC [id number] 15:33:00 Test Item Value Reference Range Interpretation [...] not appl icable for dialysis patien ts Proctologist ID - [id number] 15:32:59 Test Item Value Reference Range Interpretation Comments PHOSPHORUS (BEAKER) 2.1 mg/dL 2.3-4.7 L Specimen slightly (test code = 604) hemolyzed Proctologist ID - MITCHCBC W/PLT COUNT & AUTO [id number] 15:08:06 Test Item Value Reference Range Interpretation [...] PERCENT (BEAKER) (test code = 2801) SARS-COV2/RT-PCR ([facility])2022-01-27 12:45:59 Test Item Value Reference Range Interpretation Comments SARS-COV2/RT-PCR Negative Negative The SARS-Co V-2 target (test code = nucleic acids a re not 9960645) detected in thi s specimen. Negative result [...] revoked sooner. Fact Sheet for Healthcare Providers: https://www.[employer] m/Documents/Xpert%20Xpress%20SARS%20CoV-2/Fact%20Sheets/3023802%13YXAO-APD-4%20 HEALTHCARE%20PROVIDERS%20FACT%20SHEET.pdf Fact Sheet for Healthcare Patients: https://www.[employer]/Documents/Xpert%20Xp ress%20SARS%20CoV-2/Fact%20Sheets/3023801%10MSXR-TAK-0%20PATIENT%20FACT%20SHEET .pdfCOMPREHENSIVE METABOLIC [id number] 09:49:55 Test Item Value Reference Range Interpretation [...] not appl icable for dialysis patien ts Proctologist ID - ALVINA MOperator ID - ALVINA [id number] 09:45:42 Test Item Value Reference Range Interpretation Comments MAGNESIUM (BEAKER) (test code = 1.6 mg/dL 1.6-2.6 627) Proctologist ID - ALVINA [id number] 09:45:42 Test Item Value Reference Range Interpretation Comments PHOSPHORUS (BEAKER) (test code = 2.2 mg/dL 2.3-4.7 L 604) Proctologist ID - ALVINA MCBC W/PLT COUNT & AUTO [id number] 06:05:25 Test Item Value Reference Range Interpretation [...] code = 2801) RAD, KNEE, 3 VIEWS, [id number] 14:50:00Is this procedure to be performed with weight bearing?->Non-Weight BearingReason for exam:->knee pain [facility] : 2000 Sex: MFINAL REPORT RAD, KNEE, 3 VIEWS, RIGHT CLINICAL INDICATION: knee pain COMPARISON: NoneFINDINGS: 3views of the right knee. There is no fracture or malalignment. Moderate joint space narrowing in the femorotibial spaces. No joint fluid is demonstrated. Surrounding soft tissues are unremarkable. IMPRESSION: No acute fracture or malalignment of the knee Signed: Lew Garcia MDReport Verified Date/Time: 01/26/2022 14:50:13 Reading Location: [address] Reading Room RAD, KNEE, 3 VIEWS, [id number] 14:00:00Is this procedure to be performed with weight bearing?->Non-Weight BearingReason for exam:->knee pain [facility] : 2000 Sex: MFINALREPORT RAD, KNEE, 3 VIEWS, LEFT CLINICAL INDICATION: knee pain COMPARISON: NoneFINDINGS: 3views of the left knee. There is no fracture or malalignment. The femorotibial and femoropatellar joint spaces are intact. Small subpatellar joint effusion. Surrounding soft tissues are unremarkable. IMPRESSION: 1. No acute fracture or malalignment of the knee2.Small suprapatellar joint effusion. Signed: Lew Garcia MDReport Verified Date/Time: 01/26/2022 14:00:42 Reading Location: [address] Reading Room ANTI-DNA [id number] 12:29:53 Test Item Value Reference Range Interpretation Comments ANTI-DNA TITER (BEAKER) (test code = :160 1553) DOUBLE-STRANDED DNA (DSDNA) [id number] 12:29:42 Test Item Value Reference Range Interpretation Comments ANTI-DNA DS (BEAKER) (test code = Positive Negative 1055) COMPLEMENT COMPONENT [id number] 12:26:40 Test Item Value Reference Range Interpretation Comments C3 COMPLEMENT (BEAKER) (test code = 55 mg/dL 82-193 L 393) Proctologist ID - TANYA MCOMPLEMENT COMPONENT [id number] 12:26:39 Test Item Value Reference Range Interpretation Comments C4 COMPLEMENT (BEAKER) (test code = 6 mg/dL 15-57 L 394) Proctologist ID - TANYA MHEMOGLOBIN [id number] 09:30:34 Test Item Value Reference Range Interpretation [...] 5.7- 6.4% indicates increased risk for diabetes (prediabetes)."Proctologist ID - [id number] 07:56:27 Test Item Value Reference Range Interpretation Comments MAGNESIUM (BEAKER) (test code = 1.9 mg/dL 1.6-2.6 627) Proctologist ID - ALVINA [id number] 07:56:27 Test Item Value Reference Range Interpretation Comments PHOSPHORUS (BEAKER) (test code = 3.5 mg/dL 2.3-4.7 604) Proctologist ID - ALVINA MCOMPREHENSIVE METABOLIC [id number] 07:56:26 Test Item Value Reference Range Interpretation [...] not appl icable for dialysis patien ts Proctologist ID - ALVINA MCBC W/PLT COUNT & AUTO [id number] 06:42:48 Test Item Value Reference Range Interpretation [...] PERCENT (BEAKER) (test code = 2801) Urinalysis w/[id number] 01:12:24 Test Item Value Reference Range Interpretation Comments Color, UA (test code Yellow = 5778-6) Clarity, UA (test Clear code = 5767-9) Specific [place], UA 1.017 1.001-1.035 (test code = 5811-5) pH, UA (test code = 6.0 5.0-8.0 5803-2) Protein, UA (test Negative Negative code = 72429-9) Glucose, UA (test Negative Negative code = 365) Ketones, UA (test Trace Negative A code = 2514-8) Bilirubin, UA (test Negative Negative code = 97785-5) Blood, UA (test code Negative Negative = 41126-8) Nitrite, UA (test Negative Negative code = 5802-4) Leukocytes, UA (test Negative Negative code = 5799-2) Urobilinogen, UA 3.0 mg/dL 0.2-1.0 H (test code = 89071-8) RBC, UA (test code = 1 See_Comment [Autom ated 49103-2) message] The system which generated this result [...] Bacteria, UA (test None Seen code = 61807-1) Mucus (test code = Few 8247-9) Crystals, Urine (test Rare code = 89404-2) Specimen Source (test code = 2795) IDALIA (test code = IDALIA) Proctologist ID - [auto]Proctologist ID - tech Lab Interpretation Abnormal (test code = 05101-3) [facility]/Yeagetiiqom0113-91-12 01:12:24 Test Item Value Reference Range Interpretation Comments Color, UA (test code Yellow = 5778-6) Clarity, UA (test Clear code = 5767-9) Specific [place], UA 1.017 1.001-1.035 (test code = 5811-5) pH, UA (test code = 6.0 5.0-8.0 5803-2) Protein, UA (test Negative Negative code = 65386-6) Glucose, UA (test Negative Negative code = 365) Ketones, UA (test Trace Negative A code = 2514-8) Bilirubin, UA (test Negative Negative code = 68124-9) Blood, UA (test code Negative Negative = 00167-5) Nitrite, UA (test Negative Negative code = 5802-4) Leukocytes, UA (test Negative Negative code = 5799-2) Urobilinogen, UA 3.0 mg/dL 0.2-1.0 H (test code = 42848-2) RBC, UA (test code = 1 See_Comment [Autom ated 42401-6) message] The system which generated this result [...] Bacteria, UA (test None Seen code = 17719-7) Mucus (test code = Few 8247-9) Crystals, Urine (test Rare code = 72349-0) Specimen Source (test code = 2795) IDALIA (test code = IDALIA) Proctologist ID - [auto]Proctologist ID - tech Lab Interpretation Abnormal (test code = 63823-2) [facility] w/Zbytjnhpcsi6288-01-87 01:12:24 Test Item Value Reference Range Interpretation Comments Color, UA (test code Yellow = 5778-6) Clarity, UA (test Clear code = 5767-9) Specific [place], UA 1.017 1.001-1.035 (test code = 5811-5) pH, UA (test code = 6.0 5.0-8.0 5803-2) Protein, UA (test Negative Negative code = 83577-7) Glucose, UA (test Negative Negative code = 365) Ketones, UA (test Trace Negative A code = 2514-8) Bilirubin, UA (test Negative Negative code = 06860-4) Blood, UA (test code Negative Negative = 51900-8) Nitrite, UA (test Negative Negative code = 5802-4) Leukocytes, UA (test Negative Negative code = 5799-2) Urobilinogen, UA 3.0 mg/dL 0.2-1.0 H (test code = 25629-2) RBC, UA (test code = 1 See_Comment [Autom ated 87137-9) message] The system which generated this result [...] Bacteria, UA (test None Seen code = 09177-0) Mucus (test code = Few 8247-9) Crystals, Urine (test Rare code = 54411-2) Specimen Source (test code = 2795) IDALIA (test code = IDALIA) Proctologist ID - [auto]Proctologist ID - tech Lab Interpretation Abnormal (test code = 28147-0) [facility] Center[facility]IN[facility] W/ [id number] 01:12:24 Test Item Value Reference Range Interpretation [...] = 1521) SOURCE(BEAKER) (test code = 2795) Proctologist ID - [auto]Proctologist ID - techPROTHROMBIN TIME/[id number] 11:13:08 Test Item Value Reference Range Interpretation Comments PROTIME (BEAKER) 16.0 seconds 11.9-14.2 H (test code = 759) INR (BEAKER) (test 1.37 See_Comment [Automat ed message] code = 370) The system [facility] generated this result transmitted ref erence range: <=5.90. The reference range was not used to int erpret this result as normal/abnormal . RECOMMENDED COUMADIN/WARFARIN INR THERAPY RANGESSTANDARD DOSE: 2.0 - 3.0 Includes: PROPHYLAXIS for venous thrombosis, systemic embolization; TREATMENT for venous thrombosis and/or pulmonary embolus.HIGH RISK: Target INR is 2.5-3.5 for patients with mechanical heart valves.HEPATIC FUNCTION [id number] 08:23:09 Test Item Value Reference Range Interpretation [...] Specimen slightly (test code = 347) hemolyzed Proctologist ID - ALVINA [id number] 08:20:14 Test Item Value Reference Range Interpretation Comments PHOSPHORUS (BEAKER) 4.9 mg/dL 2.3-4.7 H Specimen slightly (test code = 604) hemolyzed Proctologist ID - ALVINA [id number] 08:20:14 Test Item Value Reference Range Interpretation Comments MAGNESIUM (BEAKER) 1.5 mg/dL 1.6-2.6 L Specimen slightly (test code = 627) hemolyzed Proctologist ID - ALVINA MLACTIC ACID, [id number] 07:47:42 Test Item Value Reference Range Interpretation Comments LACTATE BLOOD VENOUS 1.04 mmol/L 0.50-2.20 Specime n slightly (2) (BEAKER) (test hemolyzed code = 6696) Proctologist ID - ALVINA MBASIC METABOLIC [id number] 07:28:57 Test Item Value Reference Range Interpretation [...] not appl icable for dialysis patien ts Proctologist ID - ALVINA MPT/GMXF2323-22-28 07:01:08 Test Item Value Reference Range Interpretation [...] mechanical heart valves.CBC W/PLT COUNT & AUTO [id number] 06:52:58 Test Item Value Reference Range Interpretation [...] Not Detected, (test code = Negative, See 73461-6) external report for linked test SARS-COV-2 [facility] PERFORMING LAB (test code = 93565-6) IDALIA (test code = Negative result for [...] of the Act. Fact Sheet for Healthcare Providers:https://www.[employer]/sites/default/f anup/product/documents/F act_Sheet_HC_Providers_L fdh_SXBZ-CsB-9.pdf Fact Sheet for Healthcare Patients:https://www.[employer]/sites/default/fi les/product/documents/Fa ct_Sheet_Patients_Lyra_S ARS-CoV-2.pdf Performing Laboratory:[facility], [place] [address] [place], [place] [address]ARS-COV2/RT-PCR ([facility])2021-12-25 10:50:35 Test Item Value Reference Range Interpretation Comments SARS-COV2/RT-PCR (test Negative Not Detected, Negative, code = 3283681) See external report for linked test SARS-COV-2 PERFORMING LAB [facility] (test code = 3662312) Negative result for this test determines that [...] of the Act.Fact Sheet for Healthcare Prov iders:https://www.[employer]/sites/default/files/product/documents/Fact_Sheet_HC _Zqthssdab_Blmj_URIK-JcB-0.pdfFact Sheet for Healthcare Patients:https://www.[employer]/sites/default/files/product/docume nts/Zdcz_Cytdw_Uvpzoqme_Psob_JLQB-LjI-8.pdfPerforming Laboratory:[facility] [facility], [place] [address]ORSCR METABOLIC PANEL 2021-12-25 05:39:15 Test Item Value [...] not appl icable for dialysis patien ts Proctologist ID - PIAYA LCBC W/PLT COUNT & AUTO [id number] 04:50:53 Test Item Value Reference Range Interpretation [...] (BEAKER) (test code = 2801) BASIC METABOLIC [id number] 04:18:37 Test Item Value Reference Range Interpretation [...] not appl icable for dialysis patien ts Proctologist ID - ALVINA MCBC W/PLT COUNT & AUTO [id number] 04:02:11 Test Item Value Reference Range Interpretation [...] (BEAKER) (test code = 2801) BASIC METABOLIC [id number] 03:48:40 Test Item Value Reference Range Interpretation [...] (test code = 697) EGFR (BEAKER) 137 Interpretati on of eGFR (test code = [...] not appl icable for dialysis patien ts Proctologist ID - BSCBC W/PLT COUNT & AUTO [id number] 03:25:33 Test Item Value Reference Range Interpretation [...] (BEAKER) (test code = 2801) COMPLEMENT COMPONENT [id number] 05:12:57 Test Item Value Reference Range Interpretation Comments C3 COMPLEMENT (BEAKER) (test code = 58 mg/dL 82-193 L 393) Proctologist ID - PIAYA LCOMPLEMENT COMPONENT [id number] 05:12:56 Test Item Value Reference Range Interpretation Comments C4 COMPLEMENT (BEAKER) (test code = 5 mg/dL 15-57 L 394) Proctologist ID - PIAYA LBASIC METABOLIC [id number] 04:43:01 Test Item Value Reference Range Interpretation [...] not appl icable for dialysis patien ts Proctologist ID - ALVINA M-CBC W/PLT COUNT & AUTO [id number] 04:23:52 Test Item Value Reference Range Interpretation [...] (BEAKER) (test code = 2801) BASIC METABOLIC [id number] 06:45:19 Test Item Value Reference Range Interpretation [...] not appl icable for dialysis patien ts Proctologist ID - PIAYA LCBC W/PLT COUNT & AUTO [id number] 06:29:46 Test Item Value Reference Range Interpretation [...] PERCENT (BEAKER) (test code = 2801) CT, [id number] 15:01:00Unlisted Reason for Exam - Click Yes and Enter Reason Below->Nointraabdominal abscessesIs this for enterography?->NoWill this procedure require oral contrast?->Yes [facility] : 2000 Sex: MFINAL REPORT [...] Hadley MDReportVerified Date/Time: 12/20/2021 15:01:52 Reading Location: [facility] B1 C013X Ortho Consult Reading Room Jelly ctronically signed by: NEVIN HADLEY M.D. on 12/20/2021 03:01 PMBASIC METABOLIC [id number] 06:08:38 Test Item Value Reference Range Interpretation [...] not appl icable for dialysis patien ts Proctologist ID - BISI [id number] 06:08:38 Test Item Value Reference Range Interpretation Comments MAGNESIUM (BEAKER) (test code = 1.7 mg/dL 1.6-2.6 627) Proctologist ID - BISI GCBC W/PLT COUNT & AUTO [id number] 05:55:13 Test Item Value Reference Range Interpretation [...] 0-1 PERCENT (BEAKER) (test code = 2801) [id number] 05:57:20 Test Item Value Reference Range Interpretation Comments MAGNESIUM (BEAKER) (test code = 1.8 mg/dL 1.6-2.6 627) Proctologist ID - MARIBEL LBASIC METABOLIC [id number] 05:57:19 Test Item Value Reference Range Interpretation [...] not appl icable for dialysis patien ts Proctologist ID - MARIBEL LCBC W/PLT COUNT & AUTO [id number] 05:05:06 Test Item Value Reference Range Interpretation [...] 0-1 PERCENT (BEAKER) (test code = 2801) [id number] 05:14:32 Test Item Value Reference Range Interpretation Comments MAGNESIUM (BEAKER) (test code = 1.6 mg/dL 1.6-2.6 627) Proctologist ID - DBBASIC METABOLIC [id number] 05:14:31 Test Item Value Reference Range Interpretation [...] not appl icable for dialysis patien ts Proctologist ID - DBCBC W/PLT COUNT & AUTO [id number] 04:29:19 Test Item Value Reference Range Interpretation [...] PERCENT (BEAKER) (test code = 2801) SARS-COV2/RT-PCR ([facility])2021-12-18 02:02:45 Test Item Value Reference Range Interpretation Comments SARS-COV2/RT-PCR (test Negative Not Detected, Negative, code = 6938730) See external report for linked test SARS-COV-2 PERFORMING LAB [facility] (test code = 3030789) Negative result for this test determines that [...] of the Act.Fact Sheet for Healthcare Prov iders:https://www.[employer]/sites/default/files/product/documents/Fact_Sheet_HC _Jhumlqzdu_Iyxh_XFXM-UyR-5.pdfFact Sheet for Healthcare Patients:https://www.[employer]/sites/default/files/product/docume nts/Ojvh_Xusxj_Fmubvtwc_Vrgr_MFBY-VjI-4.pdfPerforming Laboratory:[facility], [place] [address]XLWOPJXD KINASE (CK) 2021-12-17 07:03:15 Test Item Value Reference Range Interpretation Comments CREATINE KINASE TOTAL (BEAKER) (test < U/L 29-200 L code = 380) Proctologist ID - IBSI GBASIC METABOLIC [id number] 06:48:47 Test Item Value Reference Range Interpretation [...] not appl icable for dialysis patien ts Proctologist ID - BISI [id number] 06:48:47 Test Item Value Reference Range Interpretation Comments MAGNESIUM (BEAKER) (test code = 1.7 mg/dL 1.6-2.6 627) Proctologist ID - BISI GCBC W/PLT COUNT & AUTO [id number] 06:18:24 Test Item Value Reference Range Interpretation [...] (BEAKER) (test code = 2801) HEPATIC FUNCTION [id number] 05:37:52 Test Item Value Reference Range Interpretation [...] (test code = 22 U/L 6-55 347) Proctologist ID - ALVINA MBASIC METABOLIC [id number] 05:37:51 Test Item Value Reference Range Interpretation [...] not appl icable for dialysis patien ts Proctologist ID - ALVINA [id number] 05:37:51 Test Item Value Reference Range Interpretation Comments MAGNESIUM (BEAKER) (test code = 1.8 mg/dL 1.6-2.6 627) Proctologist ID - ALVINA MCBC W/PLT COUNT & AUTO [id number] 05:19:35 Test Item Value Reference Range Interpretation [...] code = 2801) WOUND CULTURE + GRAM [id number] 15:11:36 Test Item Value Reference Range Interpretation [...] d message] code = 143) The system [facility] generated this result transmitted ref erence range: Suscepti ble 0-2 , Dose Depe ndent Susceptible <0 or >2 , Resi. The ref erence range was not u sed to interpret this result as normal/abnor mal. Itraconazole (test See_Comment S [Automat ed message] code = 146) The system [facility] generated this result transmitted ref erence range: Suscepti ble 0-0.125 , Dose Dependent Susce ptible <0 or >.125. Th e reference range was not used to int erpret this result as normal/abnormal . Micafungin (test See_Comment S [Automated message] code = 148) The system [facility] generated this result transmitted ref erence range: Suscepti ble 0-0.25 , Non-susceptible <0 or >.25 , Resistan t . The reference r colby was not used to interpret this result as normal/abnor mal. Posaconazole (test See_Comment [Automat ed message] code = 152) The system [facility] generated this result transmitted ref erence range: Suscepti ble >0-0 , No Interpretations Established <=0 or >0 . The reference range was not used to interpret this result as normal/abnor mal. Voriconazole (test See_Comment S [Automat ed message] code = 153) The system [facility] generated this result transmitted ref erence range: [...] d message] code = 143) The system [facility] generated this result transmitted ref erence range: Suscepti ble 0-0 , Dose Depe ndent Susceptible <0 or >0 , Resi. The ref erence range was not u sed to interpret this result as normal/abnor mal. Itraconazole (test See_Comment [Automat ed message] code = 146) The system [facility] generated this result transmitted ref erence range: Suscepti ble 0-0.125 , Dose Dependent Susce ptible <0 or >.125. Th e reference range was not used to int erpret this result as normal/abnormal . Micafungin (test See_Comment S [Automated message] code = 148) The system [facility] generated this result transmitted ref erence range: Suscepti ble 0-0.06 , Non-susceptible <0 or >.06 , Resistan t . The reference r colby was not used to interpret this result as normal/abnor mal. Posaconazole (test See_Comment [Automat ed message] code = 1522) The system [facility] generated this result transmitted ref erence range: Suscepti ble >0-0 , No Interpretations Established <=0 or >0 . The reference range was not used to interpret this result as normal/abnor mal. Voriconazole (test See_Comment [Automat ed message] code = 153) The system [facility] generated this result transmitted ref erence range: Suscepti ble >0-0 , Dose Dep endent Susceptible <=0 or >0 , No. The refer ence range was not u sed to interpret this result as normal/abnor mal. GRAM STAIN RESULT 4+ WBCs (BEAKER) (test code = 1123) GRAM STAIN RESULT <1+ budding (BEAKER) (test code yeast = 503536) [id number] 13:41:55 Test Item Value Reference Range Interpretation Comments MAGNESIUM (BEAKER) 1.6 mg/dL 1.6-2.6 Specimen slightly (test code = 627) hemolyzed Proctologist ID - BSBASIC METABOLIC [id number] 13:41:55 Test Item Value Reference Range Interpretation [...] not appl icable for dialysis patien ts Proctologist ID - BSCBC (HEMOGRAM ONLY)2021-12-15 12:10:46 Test [...] = 413) RAD, CHEST, 1 VIEW, NON [id number] 11:09:00Reason for exam:->PICC tip location verification.Should this be performed at the bedside?->Yes [facility] 2000 Sex: MFINAL REPORT CLINICAL HISTORY:PICC tip location verification. TECHNIQUE: 1 view of thechest. COMPARISON: 09/28/2021 IMPRESSION: The tip of the right PICC line is at the cavoatrial junction. There are no focal infiltrates or effusions. The cardiomediastinal silhouette is within normal limits for size. Signed: Darcie Williamson MDReport Verified Date/Time: 12/15/2021 11:09:16 Reading Location: [facility] Radiology Reading Room [id number] 07:04:44 Test Item Value Reference Range Interpretation Comments MAGNESIUM (BEAKER) (test code = 1.8 mg/dL 1.6-2.6 627) Proctologist ID - SHREE WCT, [id number] 13:51:00Unlisted Reason for Exam - Click Yes and Enter Reason Below->NoIs this for enterography?->NoWill this procedure require oral contrast?->No [facility] : 2000 Sex: MFINAL REPORT [...] prior examination.3.Mild diffuse hepatic steatosis. Signed: Robert [facility] Verified Date/Time: 12/14/2021 13:51:31 Reading Location: [facility] Diagnostic Imaging Reading Room - [place] [address] ANTI-DNA [id number] 12:28:11 Test Item Value Reference Range Interpretation Comments ANTI-DNA TITER (BEAKER) (test code = :80 1553) DOUBLE-STRANDED DNA (DSDNA) [id number] 12:27:59 Test Item Value Reference Range Interpretation Comments ANTI-DNA DS (BEAKER) (test code = Positive Negative 1055) CBC W/PLT COUNT & AUTO [id number] 06:03:24 Test Item Value Reference Range Interpretation [...] code = 2801) CT, DRAINAGE W/ CATH [id number] 12:21:00Reason for exam:->undrained fluid collections in abdomen [facility] : 2000 Sex: MFINAL REPORT CT guided drainage catheter placement, 12/11/2021 Clinical History: Right-sided abdominal fluid collection. Modality: CT. Production Operations Manager: Shira. Instructor Flying: None. Sedation: Versed 1 mg and fentanyl [...] was achieved with 1% lidocaine, a 5 Croatian one-step catheter was advanced into the fluid collection under CT guidance. Aspiration was attempted through this catheter, but only a small amount of fluid could be obtained. After a small skin incision was made, a guidewire was advanced into the fluid collection. Subsequently, a soft tissue tract was created with 8 Croatian dilator. After the tract was dilated, an 8 Croatian all-purpose drainage catheter was placed into the [...] MDReport Verified Date/Time: 12/13/2021 12:21:52 Reading Location: [facility] Reading Room BASIC METABOLIC [id number] 08:39:36 Test Item Value Reference Range Interpretation [...] S NOT APPLICABLE FOR DIALYSIS PATIEN TS. Proctologist ID - [id number] 08:39:36 Test Item Value Reference Range Interpretation Comments MAGNESIUM (BEAKER) (test code = 1.7 mg/dL 1.6-2.6 627) Proctologist ID - BSPOC-Glucose kkjej5903-07-19 07:42:54 Test Item Value Reference Range Interpretation Comments POC-Glucose Meter (test 128 mg/dL 70-110 H : TE STED AT [facility] code = 1538) [address] [place], [address]: Proctologist/Techni dakota ID = [id number] for QUEEN REYES Lab Interpretation (test Abnormal code = 91326-9) [facility] [id number] 07:42:54 Test Item Value Reference Range Interpretation Comments POC-GLUCOSE METER 128 mg/dL 70-110 H : TESTED A T [facility] 6720 (BEAKER) (test code = [place] [facility], 1538) [address]: Proctologist/Techni dakota ID = [id number] for QUEEN HONEYCUTT BLOOD [id number] 15:01:19 Test Item Value Reference Range Interpretation Comments CULTURE (BEAKER) (test No growth in 5 days code = 1095) BLOOD [id number] 15:01:19 Test Item Value Reference Range Interpretation [...] code C. di fficile GDH Toxin: = 3199385) NegativeC. diff icile GDH Antigen: Negati veKit Lot: [id number] Date : 08/22/2023 c [id number] 12:27:53Scan ResultComment: C. difficile GDH Toxin: NegativeC. difficile GDH Antigen: Negative Kit Lot: [id number] [facility]: [facility] [id number] 12:27:53Scan ResultComment: C. difficile GDH Toxin: NegativeC. difficile GDH Antigen: Negative Kit Lot: [id number] Date: 08/22/2023[facility] [id number] 12:27:53Scan ResultComment: C. difficile GDH Toxin: NegativeC. difficile GDH Antigen: Negative Kit Lot: [id number] Date: 08/22/2023[facility] [id number] 12:27:53Scan ResultComment: C. difficile GDH Toxin: NegativeC. difficile GDH Antigen: Negative Kit Lot: [id number] Date: 08/22/2023[facility] [id number] 12:27:53Scan ResultComment: C. difficile GDH Toxin: NegativeC. difficile GDH Antigen: Negative Kit Lot: [id number] Date: 08/22/2023[facility] [id number] 12:27:53Scan ResultComment: C. difficile GDH Toxin: NegativeC. difficile GDH Antigen: Negative Kit Lot: [id number] Date: [address] [place], [place] [address]BASI METABOLIC PANEL 2021-12-12 07:18:15 Test Item Value [...] S NOT APPLICABLE FOR DIALYSIS PATIEN TS. Proctologist ID - SHREE [id number] 07:18:14 Test Item Value Reference Range Interpretation Comments MAGNESIUM (BEAKER) 1.7 mg/dL 1.6-2.6 Specimen slightly (test code = 627) hemolyzed Proctologist BEATRIZ SWANN WCBC W/PLT COUNT & AUTO [id number] 06:48:11 Test Item Value Reference Range Interpretation [...] PERCENT (BEAKER) (test code = 2801) SARS-COV2/RT-PCR ([facility])2021-12-11 08:51:50 Test Item Value Reference Range Interpretation Comments SARS-COV2/RT-PCR (test Negative Not Detected, Negative, code = 7284305) See external report for linked test SARS-COV-2 PERFORMING LAB [facility] (test code = 3286193) Negative result for this test determines that [...] of the Act.Fact Sheet for Healthcare Prov iders:https://www.[employer]/sites/default/files/product/documents/Fact_Sheet_HC _Luavnfsos_Lrqq_ILFI-DsK-6.pdfFact Sheet for Healthcare Patients:https://www.[employer]/sites/default/files/product/docume nts/Lqqd_Irvlu_Rumqrhrm_Nzty_YCMR-ZuU-7.pdfPerforming Laboratory:[facility].[place], [place] [address]OSJJF METABOLIC PANEL 2021-12-11 07:32:42 Test Item Value [...] S NOT APPLICABLE FOR DIALYSIS PATIEN TS. Proctologist ID - MARIBEL [id number] 07:32:42 Test Item Value Reference Range Interpretation Comments MAGNESIUM (BEAKER) (test code = 1.7 mg/dL 1.6-2.6 627) Proctologist ID - MARIBEL LCT, [id number] 13:47:00Unlisted Reason for Exam - Click Yes and Enter Reason Below->NoIs this for enterography?->NoWill this procedure require oral contrast?->No [facility] CENTERName: VANGIE [facility]VALLE : 2000 [...] Andrés Holloway MDReport Verified Date/Time: 12/10/2021 13:47:19 [id number] 08:22:12 Test Item Value Reference Range Interpretation Comments MAGNESIUM (BEAKER) (test code = 1.5 mg/dL 1.6-2.6 L 627) Proctologist ID - SHREE WBASIC METABOLIC [id number] 08:22:11 Test Item Value Reference Range Interpretation [...] S NOT APPLICABLE FOR DIALYSIS PATIEN TS. Proctologist ID - SHREE WCBC W/PLT COUNT & AUTO [id number] 05:53:31 Test Item Value Reference Range Interpretation [...] 0-1 PERCENT (BEAKER) (test code = 2801) [id number] 05:50:23 Test Item Value Reference Range Interpretation Comments MAGNESIUM (BEAKER) (test code = 1.8 mg/dL 1.6-2.6 627) Proctologist ID - BISI GBASIC METABOLIC [id number] 05:50:22 Test Item Value Reference Range Interpretation [...] S NOT APPLICABLE FOR DIALYSIS PATIEN TS. Proctologist ID - BISI GCOMPLEMENT COMPONENT [id number] 05:47:38 Test Item Value Reference Range Interpretation Comments C3 COMPLEMENT (BEAKER) (test code = 34 mg/dL 82-193 L 393) Proctologist ID - MARIBEL LCOMPLEMENT COMPONENT [id number] 05:47:37 Test Item Value Reference Range Interpretation Comments C4 COMPLEMENT (BEAKER) (test code = 6 mg/dL 15-57 L 394) Proctologist ID - MARIBEL LPROTHROMBIN TIME/[id number] 05:32:34 Test Item Value Reference Range Interpretation Comments PROTIME (BEAKER) 16.8 seconds 11.9-14.2 H (test code = 759) INR (BEAKER) (test 1.39 See_Comment [Automat ed message] code = 370) The system [facility] generated this result transmitted ref erence range: <=5.90. The reference range was not used to int erpret this result as normal/abnormal . RECOMMENDED COUMADIN/WARFARIN INR THERAPY RANGESSTANDARD DOSE: 2.0 - 3.0 Includes: PROPHYLAXIS for venous thrombosis, systemic embolization; TREATMENT for venous thrombosis and/or pulmonary embolus.HIGH RISK: Target INR is 2.5-3.5 for patients with mechanical heart valves.Urinalysis w/Owsplehmswk9437-63-77 00:48:22 Test Item Value Reference Range Interpretation Comments Color, UA (test code Yellow = 5778-6) Clarity, UA (test Clear code = 5767-9) Specific [place], UA 1.023 1.001-1.035 (test code = 5811-5) pH, UA (test code = 6.5 5.0-8.0 5803-2) Protein, UA (test Negative Negative code = 97515-1) Glucose, UA (test 50 mg/dL Negative A code = 365) Ketones, UA (test Trace Negative A code = 2514-8) Bilirubin, UA (test Negative Negative code = 54318-6) Blood, UA (test code Negative Negative = 52818-1) Nitrite, UA (test Negative Negative code = 5802-4) Leukocytes, UA (test Trace Negative A code = 5799-2) Urobilinogen, UA 0.2 mg/dL 0.2-1.0 (test code = 37139-3) RBC, UA (test code = 2 See_Comment [Autom ated 50350-8) message] The system which generated this result [...] . Bacteria, UA (test Moderate code = 91406-8) Mucus (test code = Occasional 8247-9) Hyaline Casts, UA 4 See_Comment [Automate d (test code = 61021-5) messag e] The system which generated this result transmitted reference range : /LPF. The reference range was not used to interpret this result as normal/abnormal . Crystals, Urine (test None Seen code = 18185-4) Specimen Source (test code = 2795) IDALIA (test code = IDALIA) Proctologist ID - [auto]Proctologist ID - tech Lab Interpretation Abnormal (test code = 43573-5) [facility] Center[facility]INALYSIS W/ [id number] 00:48:22 Test Item Value Reference Range Interpretation [...] = 1521) SOURCE(BEAKER) (test code = 2795) Proctologist ID - [auto]Proctologist ID - techProtein, random [id number] 23:18:26 Test Item Value Reference Range Interpretation Comments Protein, Urine (test code 21 mg/dL 0-14 H = 2888-6) IDALIA (test code = IDALIA) Proctologist ID - MARIBEL L Lab Interpretation (test Abnormal code = 20242-1) [facility] CenterProtein, random [id number] 23:18:26 Test Item Value Reference Range Interpretation Comments Protein, Urine (test code 21 mg/dL 0-14 H = 2888-6) IDALIA (test code = IDALIA) Proctologist ID - MARIBEL L Lab Interpretation (test Abnormal code = 27248-6) [facility] CenterProtein, random [id number] 23:18:26 Test Item Value Reference Range Interpretation Comments Protein, Urine (test code 21 mg/dL 0-14 H = 2888-6) IDALIA (test code = IDALIA) Proctologist ID Cherelle LÓPEZ L Lab Interpretation (test Abnormal code = 00244-5) [facility] CenterProtein, random [id number] 23:18:26 Test Item Value Reference Range Interpretation Comments Protein, Urine (test code 21 mg/dL 0-14 H = 2888-6) IDALIA (test code = IDALIA) Proctologist ID Cherelle LÓPEZ L Lab Interpretation (test Abnormal code = 79659-3) [facility] CenterPROTEIN, RANDOM [id number] 23:18:26 Test Item Value Reference Range Interpretation Comments PROTEIN, URINE (BEAKER) (test code = 21 mg/dL 0-14 H 1569) Proctologist ID Cherelle Corbetteatinine, random [id number] 23:18:25 Test Item Value Reference Range Interpretation Comments Creatinine, Ur 99.7 mg/dL (test code = 2161-8) IDALIA (test code = Reference Range: No IDALIA) NormalsOperator ID - MARIBEL Inman [facility] CenterCreatinine, random [id number] 23:18:25 Test Item Value Reference Range Interpretation Comments Creatinine, Ur 99.7 mg/dL (test code = 2161-8) IDALIA (test code = Reference Range: No IDALIA) NormalsOperator ID - MARIBEL Inman [facility] CenterCreatinine, random [id number] 23:18:25 Test Item Value Reference Range Interpretation Comments Creatinine, Ur 99.7 mg/dL (test code = 2161-8) IDALIA (test code = Reference Range: No IDALIA) NormalsOperator ID - MARIBEL Inman [facility] CenterCreatinine, random [id number] 23:18:25 Test Item Value Reference Range Interpretation Comments Creatinine, Ur 99.7 mg/dL (test code = 2161-8) IDALIA (test code = Reference Range: No IDALIA) NormalsOperator ID - MARIBEL Inman [facility] CenterCREATININE, RANDOM [id number] 23:18:25 Test Item Value Reference Range Interpretation Comments CREATININE URINE (BEAKER) (test 99.7 mg/dL code = 375) Reference Range: No NormalsOperator ID Cherelle LÓPEZ LPOCT-GLUCOSE [id number] 10:32:21 Test Item Value Reference Range Interpretation Comments POC-GLUCOSE METER 110 mg/dL 70-110 : [facility] (BEAKER) (test code = [place] [place], 1538) [address]: Proctologist/Techni dakota ID = [id number] for QUEEN HONEYCUTT HEMOGLOBIN [id number] 10:26:45 Test Item Value Reference Range Interpretation [...] 5.7- 6.4% indicates increased risk for diabetes (prediabetes)."Proctologist ID - ADM HEPATIC FUNCTION [id number] 10:19:31 Test Item Value Reference Range Interpretation [...] Specimen slightly (test code = 347) hemolyzed Proctologist ID - MARIBLE LBASIC METABOLIC [id number] 10:19:30 Test Item Value Reference Range Interpretation [...] S NOT APPLICABLE FOR DIALYSIS PATIEN TS. Proctologist ID - PIJOVI LLIPID [id number] 10:19:30 Test Item Value Reference Range Interpretation [...] Borderline 130-159 High 160-189 Very High >=190 Proctologist ID - PIAYA [id number] 10:19:29 Test Item Value Reference Range Interpretation Comments MAGNESIUM (BEAKER) 1.5 mg/dL 1.6-2.6 L Specimen slightly (test code = 627) hemolyzed Proctologist ID - PIJOVI [id number] 10:19:29 Test Item Value Reference Range Interpretation Comments PHOSPHORUS (BEAKER) 3.9 mg/dL 2.3-4.7 Specimen slightly (test code = 604) hemolyzed Proctologist ID - PIAYA LCBC W/PLT COUNT & AUTO [id number] 06:19:38 Test Item Value Reference Range Interpretation [...] (BEAKER) (test code = 2801) COMPREHENSIVE METABOLIC [id number] 14:20:15 Test Item Value Reference Range Interpretation [...] S NOT APPLICABLE FOR DIALYSIS PATIEN TS. Proctologist ID Cherelle LÓPEZ [id number] 14:20:15 Test Item Value Reference Range Interpretation Comments LIPASE (BEAKER) (test code = 749) 8 U/L 8-78 Proctologist ID - MARIBEL NEGRONACTIC ACID, [id number] 14:16:12 Test Item Value Reference Range Interpretation Comments LACTATE BLOOD VENOUS 1.09 mmol/L 0.50-2.20 Specime n slightly (2) (BEAKER) (test hemolyzed code = 4502) Proctologist ID - MARIBEL [id number] 14:09:56 Test Item Value Reference Range Interpretation Comments PARTIAL THROMBOPLASTIN TIME 28.8 seconds 22.5-36.0 (BEAKER) (test code = 760) PROTHROMBIN TIME/[id number] 14:09:14 Test Item Value Reference Range Interpretation Comments PROTIME (BEAKER) 16.6 seconds 11.9-14.2 H (test code = 759) INR (BEAKER) (test 1.37 See_Comment [Automat ed message] code = 370) The system [facility] generated this result transmitted ref erence range: <=5.90. The reference range was not used to int erpret this result as normal/abnormal . RECOMMENDED COUMADIN/WARFARIN INR THERAPY RANGESSTANDARD DOSE: 2.0 - 3.0 Includes: PROPHYLAXIS for venous thrombosis, systemic embolization; TREATMENT for venous thrombosis and/or pulmonary embolus.HIGH RISK: Target INR is 2.5-3.5 for patients with mechanical heart valves.CBC W/PLT COUNT & AUTO [id number] 14:03:40 Test Item Value Reference Range Interpretation [...] PERCENT (BEAKER) (test code = 2801) POCT-GLUCOSE [id number] 13:55:45 Test Item Value Reference Range Interpretation Comments POC-GLUCOSE METER 86 mg/dL 70-110 : TESTED A T [facility] 6720 (BEAKER) (test code = [place], 1538) [address]: Proctologist/Techni dakota ID = [id number] for Jose Hodges [employer] culture + smear (non-sputum)2021-11-16 10:41:32 Test Item Value Reference Range Interpretation Comments Result (test code = No acid-fast bacilli 6463-4) isolated in 42 days AFB Smear (test code = No acid fast bacilli 99885-0) seen [facility] CenterAFB culture + smear (non-sputum)2021-11-16 10:41:32 Test Item Value Reference Range Interpretation Comments Result (test code = No acid-fast bacilli 6463-4) isolated in 42 days AFB Smear (test code = No acid fast bacilli 32333-4) seen [facility] CenterAF[facility] culture + smear (non-sputum)2021-11-16 10:41:32 Test Item Value Reference Range Interpretation Comments Result (test code = No acid-fast bacilli 6463-4) isolated in 42 days AFB Smear (test code = No acid fast bacilli 99668-4) seen [facility] CenterAF[facility] CULTURE + SMEAR (NON-SPUTUM)2021-11-16 10:41:32 Test Item Value Reference Range Interpretation Comments CULTURE (BEAKER) (test No acid-fast bacilli code = 1095) isolated in 42 days AFB SMEAR (BEAKER) No acid fast bacilli (test code = 994) seen Fungus culture + [id number] 17:16:53 Test Item Value Reference Range Interpretation Comments Result (test code = No fungus isolated in 6463-4) 28 days Fungus Smear (test No fungi seen code = 1406) [facility] CenterFungus culture + [id number] 17:16:53 Test Item Value Reference Range Interpretation Comments Result (test code = No fungus isolated in 6463-4) 28 days Fungus Smear (test No fungi seen code = 1406) [facility] CenterFungus culture + [id number] 17:16:53 Test Item Value Reference Range Interpretation Comments Result (test code = No fungus isolated in 6463-4) 28 days Fungus Smear (test No fungi seen code = 1406) [facility] CenterFUNGUS CULTURE + [id number] 17:16:53 Test Item Value Reference Range Interpretation Comments CULTURE (BEAKER) (test No fungus isolated in code = 1095) 28 days FUNGUS SMEAR (BEAKER) No fungi seen (test code = 1406) - CT ABDOMEN W W/O [id number] 15:32:00 [facility] 2000 Sex: M FAX: Willard Vaughn Jr [phone] [place]: St: REG Name: VANGIE OVALLE [facility] : 2000 Age/S: 21/M [address] Unit: [id number] Loc: [place] [address] Phys: Willard Crouch Jr, MD Acct: [id number] Dis Date: Status: REG CLI PHONE #: [phone] Exam Date: 10/23/2021 1445 FAX #: [phone] Reason: ABDOMINAL ABSCESSES EXAMS: CPT CODE: [id number] CT ABDOMEN W W/O CONTRAST 89072 EXAMINATION: -CT ABDOMEN W W/O CONTRAST INDICATION: [...] left pelvis. No evidence of intestinal obstruction. Normalcaliber abdominal aorta. PAGE 1 Signed Report (CONTINUED) FAX: Willard Vaughn Jr [phone] [place]: St: REG -- Name:VANGIE OVALLE [facility] : 2000 Age/S: 21/M [address] Unit: [id number] Loc: [place] [address] Phys: Willard Crouch Jr, MD Acct: [id number] Dis Date: Status: REG CLI PHONE #:[phone] Exam Date: 10/23/2021 1445 FAX #: [phone] Reason: ABDOMINAL ABSCESSES EXAMS: CPT C ODE: [id number] CT ABDOMEN W W/O CONTRAST 88820 (Continued) Imaged lower chest demonstrates mild bibasilar atelectasis. No acute osseous abnormality identified. IMPRESSION: Following interval drain placements, overall quantity of air-fluid collections has partially improved. at 1532 Reported and signed by: Sabas Grey MD CC: Willard Crouch Jr Technologist: DORENE WHITTAKER, RT(R,CT); MATTY Lridlow Dt/Tm: 10/23/2021 (1532) AmnaPE1 OrigPrint D/T: S: 10/23/2021 (1536 PAGE 2 Signed ReportPOCT-GLUCOSE [id number] 12:03:00 Test Item Value Reference Range Interpretation Comments POC-GLUCOSE METER 147 mg/dL 70-110 H : TESTED A T [facility] 6720 (BEAKER) (test code = [address] [place], 1538) [address]: Proctologist/Techni dakota ID = [id number] for Roberto Carlos Singh POCT-GLUCOSE [id number] 07:25:56 Test Item Value Reference Range Interpretation Comments POC-GLUCOSE METER 108 mg/dL 70-110 : TESTED A T [facility] 6720 (BEAKER) (test code = [place] [place] [facility], 1538) [address]: Proctologist/Techni dakota ID = [id number] for Saritha Castro [id number] 06:30:28 Test Item Value Reference Range Interpretation Comments PHOSPHORUS (BEAKER) (test code = 3.1 mg/dL 2.3-4.7 604) Proctologist ID - DBHEPATIC FUNCTION [id number] 06:30:28 Test Item Value Reference Range Interpretation [...] (test code = 9 U/L 6-55 347) Proctologist ID - DBBASIC METABOLIC [id number] 06:30:27 Test Item Value Reference Range Interpretation [...] S NOT APPLICABLE FOR DIALYSIS PATIEN TS. Proctologist ID - TOREKGNKAUJ4301-71-23 06:30:27 Test Item Value Reference Range Interpretation Comments MAGNESIUM (BEAKER) (test code = 1.6 mg/dL 1.6-2.6 627) Proctologist ID - DBCBC W/PLT COUNT & AUTO [id number] 06:18:45 Test Item Value Reference Range Interpretation [...] PERCENT (BEAKER) (test code = 2801) POCT-GLUCOSE [id number] 22:04:31 Test Item Value Reference Range Interpretation Comments POC-GLUCOSE METER 148 mg/dL 70-110 H : TESTED A T [facility] 6720 (BEAKER) (test code = [facility], 153) [address]: Proctologist/Techni dakota ID = [id number] for JOANN RANDOLPH POCT-GLUCOSE [id number] 17:21:06 Test Item Value Reference Range Interpretation Comments POC-GLUCOSE METER 231 mg/dL 70-110 H : TESTED A T [facility] 6720 (BEAKER) (test code = [facility] [place] [facility], 153) [address]: Proctologist/Techni dakota ID = [id number] for FAY MARTINEZ ERNST Anaerobic [id number] 13:55:46 Test Item Value Reference Range Interpretation Comments Result (test code = No anaerobes isolated 6463-4) [facility] [id number] 13:55:46 Test Item Value Reference Range Interpretation Comments CULTURE (BEAKER) (test No anaerobes isolated code = 1095) BASIC METABOLIC [id number] 12:01:25 Test Item Value Reference Range Interpretation [...] S NOT APPLICABLE FOR DIALYSIS PATIEN TS. Proctologist ID - ALVINA EPATIC FUNCTION [id number] 12:01:25 Test Item Value Reference Range Interpretation [...] (test code = 9 U/L 6-55 347) Proctologist ID - ALVINA MOperator ID - ALVINA [id number] 12:01:24 Test Item Value Reference Range Interpretation Comments PHOSPHORUS (BEAKER) (test code = 3.8 mg/dL 2.3-4.7 604) Proctologist ID - ALVINA [id number] 12:01:19 Test Item Value Reference Range Interpretation Comments MAGNESIUM (BEAKER) (test code = 1.5 mg/dL 1.6-2.6 L 627) Proctologist ID - ALVINA MPOCT-GLUCOSE [id number] 11:54:19 Test Item Value Reference Range Interpretation Comments POC-GLUCOSE METER 110 mg/dL 70-110 : TESTED A T [facility] 6720 (BEAKER) (test code = [place] [place], 1538) [address]: Proctologist/Techni dakota ID = [id number] for [place] LLIS, ERNST CBC W/PLT COUNT & AUTO [id number] 11:25:49 Test Item Value Reference Range Interpretation [...] PERCENT (BEAKER) (test code = 2801) POCT-GLUCOSE [id number] 09:39:11 Test Item Value Reference Range Interpretation Comments POC-GLUCOSE METER 87 mg/dL 70-110 : TESTED A T [facility] 6720 (BEAKER) (test code = [place], 1538) [address]: Proctologist/Techni dakota ID = [id number] for DELMAR IYER SARS-COV2/RT-PCR ([facility])2021-10-09 04:10:06 Test Item Value Reference Range Interpretation Comments SARS-COV2/RT-PCR (test Negative Not Detected, Negative, code = 1187400) See external report for linked test SARS-COV-2 PERFORMING LAB [facility] SHAUNA (test code = 4847439) Negative result for this test determines that [...] of the Act.Fact Sheet for Healthcare Prov iders:https://www.[employer]/sites/default/files/product/documents/Fact_Sheet_HC _Igdvjpclv_Cqpu_CKCO-NsA-7.pdfFact Sheet for Healthcare Patients:https://www.[employer]/sites/default/files/product/docume nts/Yogw_Czeui_Rmwwwvax_Rzla_DDXH-UiF-4.pdfPerforming Laboratory:[address], [place] [address]BUVY-NBBAIFM METER 2021-10-08 20:41:51 Test Item Value Reference Range Interpretation Comments POC-GLUCOSE METER 102 mg/dL 70-110 : Notified RN/MD: (GENEVA) (test code = TESTED AT [place] [address] 1538) [facility], [address]: Proctologist/Techni dakota ID = [id number] for HEATH GRANDE POCT-GLUCOSE [id number] 17:43:36 Test Item Value Reference Range Interpretation Comments POC-GLUCOSE METER 93 mg/dL 70-110 : TESTED A T [facility] 67 (GENEVA) (test code = [facility], 1538) [address]: Proctologist/Techni dakota ID = [id number] for Mercy Peña POCT-GLUCOSE [id number] 12:09:22 Test Item Value Reference Range Interpretation Comments POC-GLUCOSE METER 93 mg/dL 70-110 : TESTED A T [facility] 6720 (BEAKER) (test code = [place] [facility], 1538) [address]: Proctologist/Techni dakota ID = [id number] for Mercy Peña POCT-GLUCOSE [id number] 08:51:46 Test Item Value Reference Range Interpretation Comments POC-GLUCOSE METER 95 mg/dL 70-110 : TESTED A T [facility] 6720 (BEAKER) (test code = [place] [facility], 1538) 13059: Proctologist/Techni dakota ID = [id number] for Mercy Peña [id number] 05:23:25 Test Item Value Reference Range Interpretation Comments PHOSPHORUS (BEAKER) (test code = 3.1 mg/dL 2.3-4.7 604) Proctologist ID - MAILEAYA LHEPATIC FUNCTION [id number] 05:23:25 Test Item Value Reference Range Interpretation [...] (test code = 11 U/L 6-55 347) Proctologist ID - PIAYA LBASIC METABOLIC [id number] 05:23:24 Test Item Value Reference Range Interpretation [...] S NOT APPLICABLE FOR DIALYSIS PATIEN TS. Proctologist ID - MARIBEL [id number] 05:23:24 Test Item Value Reference Range Interpretation Comments MAGNESIUM (BEAKER) (test code = 1.4 mg/dL 1.6-2.6 L 627) Proctologist ID - MARIBEL LCBC W/PLT COUNT & AUTO [id number] 04:49:36 Test Item Value Reference Range Interpretation [...] PERCENT (BEAKER) (test code = 2801) POCT-GLUCOSE [id number] 21:40:30 Test Item Value Reference Range Interpretation Comments POC-GLUCOSE METER 135 mg/dL 70-110 H : TESTED A T [facility] 6720 (BEAKER) (test code = [facility], 153) 95763: Proctologist/Techni dakota ID = [id number] for MARTINE VASQUEZ POCT-GLUCOSE [id number] 16:34:48 Test Item Value Reference Range Interpretation Comments POC-GLUCOSE METER 177 mg/dL 70-110 H : TESTED A T [facility] 6720 (BEAKER) (test code = [facility], 1538) 35969: Proctologist/Techni dakota ID = [id number] for QUEEN HONEYCUTT POCT-GLUCOSE [id number] 11:09:04 Test Item Value Reference Range Interpretation Comments POC-GLUCOSE METER 156 mg/dL 70-110 H : TESTED A T [facility] 6720 (BEAKER) (test code = [facility], 1538) 06132: Proctologist/Techni dakota ID = [id number] for FAY NEGRONIA, POCT-GLUCOSE [id number] 07:50:39 Test Item Value Reference Range Interpretation Comments POC-GLUCOSE METER 69 mg/dL 70-110 L : TESTED A T [facility] 6720 (BEAKER) (test code = [place], 1538) 67779: Proctologist/Techni dakota ID = [id number] for QUEEN JACOBSEN HEPATIC FUNCTION [id number] 04:46:43 Test Item Value Reference Range Interpretation [...] (test code = 11 U/L 6-55 347) Proctologist ID - ALVINA [id number] 04:46:42 Test Item Value Reference Range Interpretation Comments MAGNESIUM (BEAKER) (test code = 1.4 mg/dL 1.6-2.6 L 627) Proctologist ID - ALVINA [id number] 04:46:42 Test Item Value Reference Range Interpretation Comments PHOSPHORUS (BEAKER) (test code = 2.6 mg/dL 2.3-4.7 604) Proctologist ID - ALVINA MBASIC METABOLIC [id number] 04:46:41 Test Item Value Reference Range Interpretation [...] S NOT APPLICABLE FOR DIALYSIS PATIEN TS. Proctologist ID - ALVINA MPOCT-GLUCOSE [id number] 21:32:38 Test Item Value Reference Range Interpretation Comments POC-GLUCOSE METER 175 mg/dL 70-110 H : TESTED A T [facility] 6720 (BEAKER) (test code = [facility], 1538) 48729: Proctologist/Techni dakota ID = [id number] for NG O, BRIGIDA POCT-GLUCOSE [id number] 16:48:18 Test Item Value Reference Range Interpretation Comments POC-GLUCOSE METER 217 mg/dL 70-110 H : TESTED A T [facility] 6720 (BEAKER) (test code [facility], = 1538) 46512: Proctologist/Techni dakota ID = [id number] for Mercy Peña POCT-GLUCOSE [id number] 12:45:58 Test Item Value Reference Range Interpretation Comments POC-GLUCOSE METER 158 mg/dL 70-110 H : TESTED A T [facility] 6720 (BEAKER) (test code [facility], = 1538) 48016: Proctologist/Techni dakota ID = [id number] for [place] Mercy holloway HEPATIC FUNCTION [id number] 06:44:11 Test Item Value Reference Range Interpretation [...] (test code = 11 U/L 6-55 347) Proctologist ID - ALVINA [id number] 06:44:10 Test Item Value Reference Range Interpretation Comments PHOSPHORUS (BEAKER) (test code = 2.4 mg/dL 2.3-4.7 604) Proctologist ID - ALVINA MBASIC METABOLIC [id number] 06:44:09 Test Item Value Reference Range Interpretation [...] S NOT APPLICABLE FOR DIALYSIS PATIEN TS. Proctologist ID - ALVINA [id number] 06:44:09 Test Item Value Reference Range Interpretation Comments MAGNESIUM (BEAKER) (test code = 1.5 mg/dL 1.6-2.6 L 627) Proctologist ID - ALVINA MCBC W/PLT COUNT & AUTO [id number] 06:09:40 Test Item Value Reference Range Interpretation [...] PERCENT (BEAKER) (test code = 2801) BLOOD [id number] 23:00:53 Test Item Value Reference Range Interpretation Comments CULTURE (BEAKER) (test No growth in 5 days code = 1095) The specimen volume collected for this blood culture was below the optimum (10 mL per bottle or 20 mL total). Use of lower volumes may adversely affect recovery and/or detection times of some organisms.BLOOD [id number] 23:00:53 Test Item Value Reference Range Interpretation Comments CULTURE (BEAKER) (test No growth in 5 days code = 1095) POCT-GLUCOSE [id number] 21:19:41 Test Item Value Reference Range Interpretation Comments POC-GLUCOSE METER 154 mg/dL 70-110 H : TESTED A T [facility] 6720 (BEAKER) (test code = [facility], 1538) 07345: Proctologist/Techni dakota ID = [id number] for Shabbir schneider (contract)Palak POCT-GLUCOSE [id number] 16:32:34 Test Item Value Reference Range Interpretation Comments POC-GLUCOSE METER 168 mg/dL 70-110 H : TESTED A T [facility] 6720 (BEAKER) (test code = [facility], 1538) 66498: Proctologist/Techni dakota ID = [id number] for [place] LLIS, ERNST POCT-GLUCOSE [id number] 11:36:04 Test Item Value Reference Range Interpretation Comments POC-GLUCOSE METER 120 mg/dL 70-110 H : TESTED A T [facility] 6720 (BEAKER) (test code = [facility], 1538) 25191: Proctologist/Techni dakota ID = [id number] for [place] LLIS, ERNST SARS-COV2/RT-PCR ([facility])2021-10-05 10:25:30 Test Item Value Reference Range Interpretation Comments SARS-COV2/RT-PCR (test Negative Not Detected, Negative, code = 6328993) See external report for linked test SARS-COV-2 PERFORMING LAB [facility] SHAUNA (test code = 2371954) Negative result for this test determines that [...] of the Act.Fact Sheet for Healthcare Prov iders:https://www.[employer]/sites/default/files/product/documents/Fact_Sheet_HC _Pnymytzbl_Sjox_XQYD-HbV-9.pdfFact Sheet for Healthcare Patients:https://www.[employer]/sites/default/files/product/docume nts/Ltoz_Rwkxz_Mskzuztw_Mcsx_SJVV-ZpC-3.pdfPerforming Laboratory:[facility], [place] [address]ASJU-AOVPLGU METER 2021-10-05 08:03:30 Test Item Value Reference Range Interpretation Comments POC-GLUCOSE METER 109 mg/dL 70-110 : TESTED A T [facility] 6720 (BEAKER) (test code = [place] [facility], 1538) 63970: Proctologist/Techni dakota ID = [id number] for ERNST FRANCOIS HEPATIC FUNCTION [id number] 07:35:20 Test Item Value Reference Range Interpretation [...] (test code = 12 U/L 6-55 347) Proctologist ID - MAILEJOVI Landinsteph ID - [id number] 06:55:48 Test Item Value Reference Range Interpretation Comments MAGNESIUM (BEAKER) (test code = 1.6 mg/dL 1.6-2.6 627) Proctologist ID - MAILEJOVI [id number] 06:55:48 Test Item Value Reference Range Interpretation Comments PHOSPHORUS (BEAKER) (test code = 2.1 mg/dL 2.3-4.7 L 604) Proctologist ID - MARIBEL LBASIC METABOLIC [id number] 06:55:47 Test Item Value Reference Range Interpretation [...] S NOT APPLICABLE FOR DIALYSIS PATIEN TS. Proctologist ID - MARIBEL LCBC W/PLT COUNT & AUTO [id number] 06:21:14 Test Item Value Reference Range Interpretation [...] PERCENT (BEAKER) (test code = 2801) POCT-GLUCOSE [id number] 21:22:59 Test Item Value Reference Range Interpretation Comments POC-GLUCOSE METER 192 mg/dL 70-110 H : TESTED A T [facility] 6720 (BEAKER) (test code = [facility], 1538) 95580: Proctologist/Techni dakota ID = [id number] for Shabbir schneider (contract)Palak POCT-GLUCOSE [id number] 17:34:11 Test Item Value Reference Range Interpretation Comments POC-GLUCOSE METER 201 mg/dL 70-110 H : TESTED A T [facility] 6720 (BEAKER) (test code = [facility], 1538) 68321: Proctologist/Techni dakota ID = [id number] for Keely House POCT-GLUCOSE [id number] 12:07:46 Test Item Value Reference Range Interpretation Comments POC-GLUCOSE METER 103 mg/dL 70-110 : TESTED A T [facility] 6720 (BEAKER) (test code = [facility], 1538) 20315: Proctologist/Techni dakota ID = [id number] for ERNST FRANCOIS SURGICALLY OBTAINED CULTURE + GRAM [id number] 09:10:42 Test Item Value Reference Range Interpretation [...] gram negative (BEAKER) (test code = rods 126993) HEPATIC FUNCTION [id number] 07:01:07 Test Item Value Reference Range Interpretation [...] (test code = 12 U/L 6-55 347) Proctologist ID - BISI [id number] 07:01:06 Test Item Value Reference Range Interpretation Comments PHOSPHORUS (BEAKER) (test code = 2.8 mg/dL 2.3-4.7 604) Proctologist ID - BISI GBASIC METABOLIC [id number] 07:01:05 Test Item Value Reference Range Interpretation [...] S NOT APPLICABLE FOR DIALYSIS PATIEN TS. Proctologist ID - BISI [id number] 07:01:05 Test Item Value Reference Range Interpretation Comments MAGNESIUM (BEAKER) (test code = 1.6 mg/dL 1.6-2.6 627) Proctologist ID - BISI GCBC W/PLT COUNT & AUTO [id number] 06:35:47 Test Item Value Reference Range Interpretation [...] PERCENT (BEAKER) (test code = 2801) POCT-GLUCOSE [id number] 16:48:07 Test Item Value Reference Range Interpretation Comments POC-GLUCOSE METER 113 mg/dL 70-110 H : TESTED A T [facility] 6720 (BEAKER) (test code = [facility], 1538) 05544: Proctologist/Techni dakota ID = [id number] for MASON FALCON POCT-GLUCOSE [id number] 11:46:29 Test Item Value Reference Range Interpretation Comments POC-GLUCOSE METER 116 mg/dL 70-110 H : TESTED A T [facility] 6720 (BEAKER) (test code = [facility], 1538) 21528: Proctologist/Techni dakota ID = [id number] for MASON FALCON ANTI-DNA [id number] 11:16:17 Test Item Value Reference Range Interpretation Comments ANTI-DNA TITER (BEAKER) (test code = :80 1553) DOUBLE-STRANDED DNA (DSDNA) [id number] 11:16:05 Test Item Value Reference Range Interpretation Comments ANTI-DNA DS (BEAKER) (test code = Positive Negative 1055) ANAEROBIC [id number] 08:30:44 Test Item Value Reference Range Interpretation Comments CULTURE (BEAKER) (test No anaerobes isolated code = 1095) HEPATIC FUNCTION [id number] 05:47:57 Test Item Value Reference Range Interpretation [...] Specimen slightly (test code = 347) hemolyzed Proctologist ID - PIAYA LBASIC METABOLIC [id number] 05:47:56 Test Item Value Reference Range Interpretation [...] S NOT APPLICABLE FOR DIALYSIS PATIEN TS. Proctologist ID - PIAYA [id number] 05:47:55 Test Item Value Reference Range Interpretation Comments PHOSPHORUS (BEAKER) 4.6 mg/dL 2.3-4.7 Specimen slightly (test code = 604) hemolyzed Proctologist ID - PIAYA [id number] 05:47:54 Test Item Value Reference Range Interpretation Comments MAGNESIUM (BEAKER) 1.9 mg/dL 1.6-2.6 Specimen slightly (test code = 627) hemolyzed Proctologist ID - PIAYA LCBC (HEMOGRAM ONLY)2021-10-03 05:23:39 [...] 0-0 (BEAKER) (test code = 413) POCT-GLUCOSE [id number] 05:08:33 Test Item Value Reference Range Interpretation Comments POC-GLUCOSE METER 102 mg/dL 70-110 : Notified RN/MD: (BEAKER) (test code = TESTED AT [facility] 7021 4673) [facility], [address]: Proctologist/Techni dakota ID = [id number] for Omid shyanne Aaron BASIC METABOLIC [id number] 21:11:22 Test Item Value Reference Range Interpretation [...] S NOT APPLICABLE FOR DIALYSIS PATIEN TS. Proctologist ID - [id number] 21:10:34 Test Item Value Reference Range Interpretation Comments PHOSPHORUS (BEAKER) (test code = 4.2 mg/dL 2.3-4.7 604) Proctologist ID - [id number] 21:10:33 Test Item Value Reference Range Interpretation Comments MAGNESIUM (BEAKER) (test code = 1.4 mg/dL 1.6-2.6 L 627) Proctologist ID - ADMINCBC (HEMOGRAM ONLY)2021-10-02 20:57:35 Test [...] 0-0 (BEAKER) (test code = 413) POCT-GLUCOSE [id number] 19:48:59 Test Item Value Reference Range Interpretation Comments POC-GLUCOSE METER 104 mg/dL 70-110 : TESTED A T [facility] 6720 (BEAKER) (test code = [place], 1538) 70419: Proctologist/Techni dakota ID = [id number] for Te rrell, Marcio HGB/HCT (H&H)-Stat [id number] 18:09:55 Test Item Value Reference Range Interpretation Comments Hemoglobin (test code = 10.2 See_Comment L [Au tomated message] 786-4) The system [facility] generated this result transmitted ref erence range: 13.0 - 1 6.8 GM/DL. The refe rence range was not u sed to interpret this result as normal/abnor mal. Hematocrit (test code = 30.0 % 40.0-50.0 L 4544-3) Lab Interpretation (test Abnormal code = 86315-1) [facility] [id number] 18:09:55 Test Item Value Reference Range Interpretation Comments Hemoglobin (test code = 10.2 See_Comment L [Au tomated message] 786-4) The system [facility] generated this result transmitted ref erence range: 13.0 - 1 6.8 GM/DL. The refe rence range was not u sed to interpret this result as normal/abnor mal. Hematocrit (test code = 30.0 % 40.0-50.0 L 4544-3) Lab Interpretation (test Abnormal code = 52786-1) [facility] [id number] 18:09:55 Test Item Value Reference Range Interpretation Comments Hemoglobin (test code = 10.2 See_Comment L [Au tomated message] 786-4) The system [facility] generated this result transmitted ref erence range: 13.0 - 1 6.8 GM/DL. The refe rence range was not u sed to interpret this result as normal/abnor mal. Hematocrit (test code = 30.0 % 40.0-50.0 L 4544-3) Lab Interpretation (test Abnormal code = 94223-8) [facility] [id number] 18:09:55 Test Item Value Reference Range Interpretation Comments Hemoglobin (test code = 10.2 See_Comment L [Au tomated message] 786-4) The system [facility] generated this result transmitted ref erence range: 13.0 - 1 6.8 GM/DL. The refe rence range was not u sed to interpret this result as normal/abnor mal. Hematocrit (test code = 30.0 % 40.0-50.0 L 4544-3) Lab Interpretation (test Abnormal code = 80387-3) [facility] [id number] 18:09:55 Test Item Value Reference Range Interpretation Comments Hemoglobin (test code = 10.2 See_Comment L [Au tomated message] 786-4) The system [facility] generated this result transmitted ref erence range: 13.0 - 1 6.8 GM/DL. The refe rence range was not u sed to interpret this result as normal/abnor mal. Hematocrit (test code = 30.0 % 40.0-50.0 L 4544-3) Lab Interpretation (test Abnormal code = 01377-4) [facility]Stat [id number] 18:09:55 Test Item Value Reference Range Interpretation Comments Hemoglobin (test code = 10.2 See_Comment L [Au tomated message] 786-4) The system [facility] generated this result transmitted ref erence range: 13.0 - 1 6.8 GM/DL. The refe rence range was not u sed to interpret this result as normal/abnor mal. Hematocrit (test code = 30.0 % 40.0-50.0 L 4544-3) Lab Interpretation (test Abnormal code = 14862-3) [facility] - STAT [id number] 18:09:55 Test Item Value Reference Range Interpretation Comments HEMOGLOBIN (BEAKER) (test code = 10.2 GM/DL 13.0-16.8 L 410) HEMATOCRIT (BEAKER) (test code = 30.0 % 40.0-50.0 L 411) Sodium Na-Stat [id number] 18:09:54 Test Item Value Reference Range Interpretation Comments Sodium (test code = 2951-2) 130 meq/L 136-145 L Lab Interpretation (test code = Abnormal 39202-7) [facility] [id number] 18:09:54 Test Item Value Reference Range Interpretation Comments Sodium (test code = 2951-2) 130 meq/L 136-145 L Lab Interpretation (test code = Abnormal 68725-6) [facility] [id number] 18:09:54 Test Item Value Reference Range Interpretation Comments Sodium (test code = 2951-2) 130 meq/L 136-145 L Lab Interpretation (test code = Abnormal 23791-1) [facility] [id number] 18:09:54 Test Item Value Reference Range Interpretation Comments Sodium (test code = 2951-2) 130 meq/L 136-145 L Lab Interpretation (test code = Abnormal 02504-0) [facility] [id number] 18:09:54 Test Item Value Reference Range Interpretation Comments Sodium (test code = 2951-2) 130 meq/L 136-145 L Lab Interpretation (test code = Abnormal 49215-1) [facility]Stat [id number] 18:09:54 Test Item Value Reference Range Interpretation Comments Sodium (test code = 2951-2) 130 meq/L 136-145 L Lab Interpretation (test code = Abnormal 51476-8) [facility] [id number] 18:09:54 Test Item Value Reference Range Interpretation Comments SODIUM (BEAKER) (test code = 381) 130 meq/L 136-145 L Blood gas, [id number] 18:09:53 Test Item Value Reference Range Interpretation Comments pH, Arterial (test code 7.50 7.35-7.45 H = 2744-1) pCO2, Arterial (test 35 See_Comment [Autom ated message] code = 2019-8) The system [facility] generated this result transmit hernandez reference range : 35 - 45 mm Hg. The reference range was not used to interpret this result as normal/abnormal . pO2, Arterial (test 139 See_Comment H [Automa hernandez message] code = 2703-7) The system [facility] generated this result transmit hernandez reference range [...] 8310-5) Lab Interpretation Abnormal (test code = 64924-1) [facility] Center[facility], [id number] 18:09:53 Test Item Value Reference Range Interpretation Comments pH, Arterial (test code 7.50 7.35-7.45 H = 2744-1) pCO2, Arterial (test 35 See_Comment [Autom ated message] code = 2019-8) The system [facility] generated this result transmit hernandez reference range : 35 - 45 mm Hg. The reference range was not used to interpret this result as normal/abnormal . pO2, Arterial (test 139 See_Comment H [Automa hernandez message] code = 2703-7) The system [facility] generated this result transmit hernandez reference range [...] 8310-5) Lab Interpretation Abnormal (test code = 93020-0) [facility] Center[facility], [id number] 18:09:53 Test Item Value Reference Range Interpretation Comments pH, Arterial (test code 7.50 7.35-7.45 H = 2744-1) pCO2, Arterial (test 35 See_Comment [Autom ated message] code = 2019) The system [employer] generated this result transmit hernandez reference range : 35 - 45 mm Hg. The reference range was not used to interpret this result as normal/abnormal . pO2, Arterial (test 139 See_Comment H [Automa hernandez message] code = 2703-7) The system [employer] generated this result transmit hernandez reference range [...] 8310-5) Lab Interpretation Abnormal (test code = 89133-7) [facility] Center[facility], [id number] 18:09:53 Test Item Value Reference Range Interpretation Comments pH, Arterial (test code 7.50 7.35-7.45 H = 2744-1) pCO2, Arterial (test 35 See_Comment [Autom ated message] code = 2018-12) The system [employer] generated this result transmit hernandez reference range : 35 - 45 mm Hg. The reference range was not used to interpret this result as normal/abnormal . pO2, Arterial (test 139 See_Comment H [Automa hernandez message] code = 2703-7) The system [employer] generated this result transmit hernandez reference range [...] 8310-5) Lab Interpretation Abnormal (test code = 41503-5) [facility] gas, [id number] 18:09:53 Test Item Value Reference Range Interpretation Comments pH, Arterial (test code 7.50 7.35-7.45 H = 2744-1) pCO2, Arterial (test 35 See_Comment [Autom ated message] code = 2019-) The system [employer] generated this result transmit hernandez reference range : 35 - 45 mm Hg. The reference range was not used to interpret this result as normal/abnormal . pO2, Arterial (test 139 See_Comment H [Automa hernandez message] code = 2703-7) The system [employer] generated this result transmit hernandez reference range [...] 8310-5) Lab Interpretation Abnormal (test code = 05693-4) [facility] gas, [id number] 18:09:53 Test Item Value Reference Range Interpretation Comments pH, Arterial (test code 7.50 7.35-7.45 H = 2744-1) pCO2, Arterial (test 35 See_Comment [Autom ated message] code = 2018-12) The system [employer] generated this result transmit hernandez reference range : 35 - 45 mm Hg. The reference range was not used to interpret this result as normal/abnormal . pO2, Arterial (test 139 See_Comment H [Automa hernandez message] code = 2703-7) The system [employer] generated this result transmit hernandez reference range [...] 8310-5) Lab Interpretation Abnormal (test code = 34009-7) [facility] CenterCALCIUM, [id number] 18:09:53 Test Item Value Reference Range Interpretation Comments CALCIUM IONIZED (BEAKER) (test 1.07 mmol/L 1.12-1.27 L code = 698) PH, BLOOD (BEAKER) (test code = 7.50 1810) BLOOD GAS, [id number] 18:09:53 Test Item Value Reference Range Interpretation [...] (BEAKER) (test 37.0 code = 1818) Glucose-Stat [id number] 18:08:53 Test Item Value Reference Range Interpretation Comments Glucose (test code = 2345-7) 101 mg/dL 70-110 Lab Interpretation (test code = Normal 67984-1) [facility] CenterPotassium-Stat [id number] 18:08:53 Test Item Value Reference Range Interpretation Comments Potassium (test code = 2823-3) 4.2 meq/L 3.6-5.5 Lab Interpretation (test code = Normal 52470-6) [facility] CenterGlucose-Stat [id number] 18:08:53 Test Item Value Reference Range Interpretation Comments Glucose (test code = 2345-7) 101 mg/dL 70-110 Lab Interpretation (test code = Normal 73303-1) [facility] CenterPotassium-Stat [id number] 18:08:53 Test Item Value Reference Range Interpretation Comments Potassium (test code = 2823-3) 4.2 meq/L 3.6-5.5 Lab Interpretation (test code = Normal 96900-2) [facility] CenterGlucose-Stat [id number] 18:08:53 Test Item Value Reference Range Interpretation Comments Glucose (test code = 2345-7) 101 mg/dL 70-110 Lab Interpretation (test code = Normal 25610-8) [facility] CenterPotassium-Stat [id number] 18:08:53 Test Item Value Reference Range Interpretation Comments Potassium (test code = 2823-3) 4.2 meq/L 3.6-5.5 Lab Interpretation (test code = Normal 19624-4) [facility] CenterGlucose-Stat [id number] 18:08:53 Test Item Value Reference Range Interpretation Comments Glucose (test code = 2345-7) 101 mg/dL 70-110 Lab Interpretation (test code = Normal 96845-6) [facility] CenterPotassium-Stat [id number] 18:08:53 Test Item Value Reference Range Interpretation Comments Potassium (test code = 2823-3) 4.2 meq/L 3.6-5.5 Lab Interpretation (test code = Normal 50225-2) [facility] CenterGlucose-Stat [id number] 18:08:53 Test Item Value Reference Range Interpretation Comments Glucose (test code = 2345-7) 101 mg/dL 70-110 Lab Interpretation (test code = Normal 13757-9) [facility] CenterPotassium-Stat [id number] 18:08:53 Test Item Value Reference Range Interpretation Comments Potassium (test code = 2823-3) 4.2 meq/L 3.6-5.5 Lab Interpretation (test code = Normal 09090-9) [facility] CenterGlucose-Stat [id number] 18:08:53 Test Item Value Reference Range Interpretation Comments Glucose (test code = 2345-7) 101 mg/dL 70-110 Lab Interpretation (test code = Normal 92058-3) [facility] CenterPotassium-Stat [id number] 18:08:53 Test Item Value Reference Range Interpretation Comments Potassium (test code = 2823-3) 4.2 meq/L 3.6-5.5 Lab Interpretation (test code = Normal 81866-6) [facility] [facility] [id number] 18:08:53 Test Item Value Reference Range Interpretation Comments GLUCOSE RANDOM (BEAKER) (test code 101 mg/dL 70-110 = 652) POTASSIUM-STAT [id number] 18:08:53 Test Item Value Reference Range Interpretation Comments POTASSIUM (BEAKER) (test code = 4.2 meq/L 3.6-5.5 379) POCT-GLUCOSE [id number] 16:03:15 Test Item Value Reference Range Interpretation Comments POC-GLUCOSE METER 128 mg/dL 70-110 H : TESTED A T [facility] 6720 (BEAKER) (test code = [place], 1538) [address]: Proctologist/Techni dakota ID = [id number] for Keely House VANCOMYCIN LEVEL, [id number] 14:06:37 Test Item Value Reference Range Interpretation Comments VANCOMYCIN TROUGH (BEAKER) (test 10.9 ug/mL 10.0-20.0 code = 522) Proctologist ID - DBSARS-COV2/RT-PCR ([facility])2021-10-02 12:40:57 Test Item Value Reference Range Interpretation Comments SARS-COV2/RT-PCR (test Negative Not Detected, Negative, code = 7517998) See external report for linked test SARS-COV-2 PERFORMING LAB [facility] SHAUNA (test code = 6828001) Negative result for this test determines that [...] of the Act.Fact Sheet for Healthcare Prov iders:https://www.[employer]/sites/default/files/product/documents/Fact_Sheet_HC _Pwivbcqez_Zmpd_DHWX-NdK-6.pdfFact Sheet for Healthcare Patients:https://www.[employer]/sites/default/files/product/docume nts/Fkmh_Khjmg_Smnmqbgv_Vwbg_NSWJ-NvS-5.pdfPerforming Laboratory:[facility], [place] [address]LZ, DRAINAGE, ABDOMINAL 2021-10-02 11:36:00Reason for exam:->necrotizing pancreatitis wiht fluid collections in abdomenReason for exam:->pls send cultures (aerobic, anaerobic) and amylase from fluid (all are ordered) [facility] : 2000 Sex: MFINAL REPORT PROCEDURE: Drainage catheter placement Procedural PersonnelAttending physician(s): Marvin Jordan physician(s): NoneResident physician(s): NoneAdvanced practice provider(s): None Pre-procedure diagnosis: Necrotizing pancreatitisPost-procedure diagnosis: SameIndication:Leukocytosis with fluid collectionAdditional clinical history: None Complications: No immediate complications. IMPRESSION: Percutaneous placement of a 16 Croatian drainage catheter into the anterior right upper [...] Less than 10Standardized report: SIR_DrainPlacement_v3 AttestationSigner name: Sandraangie Vincenzo attest that I was present for the entire procedure. I reviewed the stored images and agree with the report as written. Signed: Frida Daly MDReport Verified Date/Time: 10/02/2021 11:36:21 POCT-GLUCOSE [id number] 11:03:27 Test Item Value Reference Range Interpretation Comments POC-GLUCOSE METER 109 mg/dL 70-110 : TESTED A T [facility] 6720 (BEAKER) (test code = [facility], 1538) [address]: Proctologist/Techni dakota ID = [id number] for QUEEN HONEYCUTT BLOOD [id number] 10:09:04 Test Item Value Reference Interpretation Comments Range CULTURE (BEAKER) STAPHYLOCOCCUS A From [facility] naheed (test code = 1095) HOMINIS Bottle On [...] gram 1123) positive cocci in clusters POCT-GLUCOSE [id number] 07:31:14 Test Item Value Reference Range Interpretation Comments POC-GLUCOSE METER 76 mg/dL 70-110 : TESTED A T [facility] 6720 (BEAKER) (test code = [facility], 1538) [address]: Proctologist/Techni dakota ID = [id number] for QUEEN JACOBSEN [id number] 07:25:22 Test Item Value Reference Range Interpretation Comments PHOSPHORUS (BEAKER) (test code = 3.1 mg/dL 2.3-4.7 604) Proctologist ID - RMHEPATIC FUNCTION [id number] 07:25:22 Test Item Value Reference Range Interpretation [...] (test code = 7 U/L 6-55 347) Proctologist ID - RMBASIC METABOLIC [id number] 07:25:21 Test Item Value Reference Range Interpretation [...] S NOT APPLICABLE FOR DIALYSIS PATIEN TS. Proctologist ID - [id number] 07:25:21 Test Item Value Reference Range Interpretation Comments MAGNESIUM (BEAKER) (test code = 1.6 mg/dL 1.6-2.6 627) Proctologist ID - RMCBC (HEMOGRAM ONLY)2021-10-02 06:32:43 Test [...] 0-0 (BEAKER) (test code = 413) POCT-GLUCOSE [id number] 21:46:52 Test Item Value Reference Range Interpretation Comments POC-GLUCOSE METER 229 mg/dL 70-110 H : TESTED A T [facility] 6720 ([facility]) (test code = [place] [facility], 1538) [address]: Proctologist/Techni dakota ID = [id number] for HERLINDA VELASQUEZ POCT-GLUCOSE [id number] 16:53:40 Test Item Value Reference Range Interpretation Comments POC-GLUCOSE METER 231 mg/dL 70-110 H : Notified RN/MD: ([facility]) (test code = TESTED AT [facility] 6720 1538) [facility], [address]: Proctologist/Techni dakota ID = [id number] for Filippo Feldman 2D Echo W/Doppler(CW/PW/Color)2021-10-01 14:03:19 Test Item Value Reference Range Interpretation Comments Ejection Fraction Est EF is 55-60% (test code = 2574) Radiology Study observation (narrative) (test code = 55209-5) PXN (test code = Alejandro Hudson MD PXN) - 10/01/2021 Transthoracic Echocardiography Report (TTE) Demographics Patient Name YAMILE, Date of Study 10/01/2021 VANGIE Gender Male Visit Number [id number] Race Unknown Room Number 931 Number Date of 2000 Referring Physician Rebecca Echols Age 21 year(s) Cutter Inspector Garret Calderon [facility] Mortgage Loan Computation Clerk Stefano Genao Interpreting Physician MAR Espinoza Procedure [...] Velocity: 2.26 m/s TR Gradient: 20.[address] [facility] Qcwlnf0H Echo W/Doppler(CW/PW/Color)2021-10-01 14:03:19 Test Item Value Reference Range Interpretation Comments Ejection Fraction Est EF is 55-60% (test code = 2574) Radiology Study observation (narrative) (test code = 43754-6) PXN (test code = Alejandro Hudson MD PXN) - 10/01/2021 Transthoracic Echocardiography Report (TTE) Demographics Patient Name YAMILE, Date of Study 10/01/2021 [place] Gender Male Visit Number [id number] Race Unknown Room Number 931 Number Date of 2000 Referring Physician Rebecca Echols Age 21 year(s) Cutter Inspector Garret Calderon [facility] Mortgage Loan Computation Clerk Stefano Genao Interpreting Physician MAR Espinoza Procedure [...] Velocity: 2.26 m/s TR Gradient: 20.34 mmHg [facility] W/Doppler(CW/PW/Color)2021-10-01 14:03:19 Test Item Value Reference Range Interpretation Comments Ejection Fraction Est EF is 55-60% (test code = 2574) Radiology Study observation (narrative) (test code = 60586-3) PXN (test code = Alejandro Hudson MD PXN) - 10/01/2021 Transthoracic Echocardiography Report (TTE) Demographics Patient Name YAMILE, Date of Study 10/01/2021 [place] Gender Male Visit Number [id number] Race Unknown Room Number 931 Number Date of 2000 Referring Physician Rebecca Echols Age 21 year(s) Cutter Inspector Garret Calderon RDCS Mortgage Loan Computation Clerk Stefano Genao Interpreting Physician MAR Espinoza Procedure [...] Velocity: 2.26 m/s TR Gradient: 20.34 mmHg [facility] Echo W/Doppler(CW/PW/Color)2021-10-01 14:03:19 Test Item Value Reference Range Interpretation Comments Ejection Fraction Est EF is 55-60% (test code = 2574) Radiology Study observation (narrative) (test code = 00520-0) PXN (test code = Alejandro Hudson MD PXN) - 10/01/2021 Transthoracic Echocardiography Report (TTE) Demographics Patient Name YAMILE, Date of Study 10/01/2021 [place] Gender Male Visit Number [id number] Race Unknown Room Number 931 Number Date of 2000 Referring Physician Rebecca Echols Age 21 year(s) Cutter Inspector Garret Calderon RDCS Mortgage Loan Computation Clerk Stefano Genao Interpreting Physician MAR Espinoza Procedure [...] Velocity: 2.26 m/s TR Gradient: 20.34 mmHg [facility]2D Echo W/Doppler(CW/PW/Color)2021-10-01 14:03:19 Test Item Value Reference Range Interpretation Comments Ejection Fraction Est EF is 55-60% (test code = 2574) Radiology Study observation (narrative) (test code = 37219-6) PXN (test code = Alejandro Hudson MD PXN) - 10/01/2021 Transthoracic Echocardiography Report (TTE) Demographics Patient Name YAMILE, Date of Study 10/01/2021 [place] Gender Male Visit Number [id number] Race Unknown Room Number 931 Number Date of 2000 Referring Physician Rebecca Echols Age 21 year(s) Cutter Inspector Garret Calderon CS Mortgage Loan Computation Clerk Stefano Genao Interpreting Physician MAR Espinoza Procedure [...] Velocity: 2.26 m/s TR Gradient: 20.34 mmHg [facility]2D Echo W/Doppler(CW/PW/Color)2021-10-01 14:03:19 Test Item Value Reference Range Interpretation Comments Ejection Fraction Est EF is 55-60% (test code = 2574) Radiology Study observation (narrative) (test code = 09416-8) PXN (test code = Alejandro Hudson MD PXN) - 10/01/2021 Transthoracic Echocardiography Report (TTE) Demographics Patient Name YAMILE, Date of Study 10/01/2021 [place] Gender Male Visit Number [id number] Race Unknown Room Number 931 Number Date of 2000 Referring Physician Rebecca Echols Age 21 year(s) Cutter Inspector Garret Calderon [facility] Mortgage Loan Computation Clerk Stefano Genao Interpreting Physician MAR Espinoza Procedure [...] Velocity: 2.26 m/s TR Gradient: 20.34 mmHg [facility] CenterPOCT-GLUCOSE [id number] 12:29:44 Test Item Value Reference Range Interpretation Comments POC-GLUCOSE METER 186 mg/dL 70-110 H : TESTED A T [facility] 6720 (GENEVA) (test code = [place], 1538) [address]: Proctologist/Techni dakota ID = [id number] for DELMAR COOPER CT, ABDOMEN - PELVIS, PANCREAS [id number] 09:34:00Please have IV contrast if not already part of protocol.Unlisted Reason for Exam - Click Yes and Enter Reason Below->No [facility] CENTERName: VANGIE OVALLE : 2000 [...] necrosis Superior Mesenteric Arter y: Patent Celiac Balmorhea: Patent Celiac Balmorhea and Hepatic Artery Anatomy: Conventional Gastroduodenal Artery: Patent Splenic Artery: Patent Main Portal Vein: Patent Portal Vein Sealy: Patent Splenic Vein: Patent Superior Mesenteric Vein: [...] Holloway MDReport Verified Date/Time: 10/01/2021 09:34:00 BLOOD [id number] 08:36:30 Test Item Value Reference Range Interpretation Comments CULTURE A From Aerobic An d (BEAKER) (test Anaerobic Bot tles Same code = 1095) organism has be en isolated from cultures(s) of the same body site and collection date . Repeat identifi cation and susceptibil ity testing perform ed only after consultat ion with the [facility] al microbiology laboratory.Refe r to previous cultur e of* - Staphylococcus hominis GRAM STAIN From aerobic and RESULT (BEAKER) anaerobic (test code = bottles: gram 1123) positive cocci in clusters BODY FLUID CULTURE + GRAM [id number] 08:15:57 Test Item Value Reference Range Interpretation [...] gram negative (BEAKER) (test code = rods 277352) [id number] 05:43:54 Test Item Value Reference Range Interpretation Comments PHOSPHORUS (BEAKER) (test code = 2.8 mg/dL 2.3-4.7 604) Proctologist ID - SHREE WHEPATIC FUNCTION [id number] 05:43:54 Test Item Value Reference Range Interpretation [...] (test code = 7 U/L 6-55 347) Proctologist ID Cherelle SWANN WBASIC METABOLIC [id number] 05:43:53 Test Item Value Reference Range Interpretation [...] S NOT APPLICABLE FOR DIALYSIS PATIEN TS. Proctologist ID Cherelle SWANN [id number] 05:43:53 Test Item Value Reference Range Interpretation Comments MAGNESIUM (BEAKER) (test code = 1.4 mg/dL 1.6-2.6 L 627) Proctologist ID - SHREE WCBC (HEMOGRAM ONLY)2021-10-01 05:31:02 Test Item Value [...] (BEAKER) (test code = 413) Prepare Leuko-Red [id number] 23:54:00 Test Item Value Reference Range Interpretation Comments CROSSMATCH (test code = 2264) COMPATIBLE Unit ABO (test code = A Pos 6183343) UNIT NUMBER (test code = [id number] 934-0) Status (test code = 4892243) [facility] Blood Bank Product (test code RED BLOOD CELLS = 2263) PRODUCT CODE (test code = K0409O70 933-2) [facility] Center[facility] Leuko-Red [id number] 23:54:00 Test Item Value Reference Range Interpretation Comments CROSSMATCH (test code = 2264) COMPATIBLE Unit ABO (test code = A Pos 6624992) UNIT NUMBER (test code = [id number] 934-0) Status (test code = 4894645) [facility]TIMEPENOBSC[facility]ERT Blood Bank Product (test code RED BLOOD CELLS = 2263) PRODUCT CODE (test code = [id number] 933-2) [facility] CenterPre[facility] Leuko-Red [id number] 23:54:00 Test Item Value Reference Range Interpretation Comments CROSSMATCH (test code = 2264) COMPATIBLE Unit ABO (test code = A Pos 5398259) UNIT NUMBER (test code = [id number] 934-0) Status (test code = 1735183) [facility]TIMEP[facility]SC[facility]ERT Blood Bank Product (test code RED BLOOD CELLS = 2263) PRODUCT CODE (test code = E7926T28 933-2) [facility] CenterPreeastern [facility] Leuko-Red [id number] 23:54:00 Test Item Value Reference Range Interpretation Comments CROSSMATCH (test code = 2264) COMPATIBLE Unit ABO (test code = A Pos 1958679) UNIT NUMBER (test code = [id number] 934-0) Status (test code = 6264646) [place]_TIMEINCHART Blood Bank Product (test code RED BLOOD CELLS = 2263) PRODUCT CODE (test code = I2353X18 933-2) [facility] CenterPre[facility] Leuko-Red [id number] 23:54:00 Test Item Value Reference Range Interpretation Comments CROSSMATCH (test code = 2264) COMPATIBLE Unit ABO (test code = A Pos 0547692) UNIT NUMBER (test code = [id number] 934-0) Status (test code = 8012243) [place]_TIMEINCHART Blood Bank Product (test code RED BLOOD CELLS = 2263) PRODUCT CODE (test code = A4657O24 933-2) [facility] CenterPrepare Leuko-Red [id number] 23:54:00 Test Item Value Reference Range Interpretation Comments CROSSMATCH (test code = 2264) COMPATIBLE Unit ABO (test code = A Pos 8732901) UNIT NUMBER (test code = [id number] 934-0) Status (test code = 1055198) [place]_TIMEINCHART Blood Bank Product (test code RED BLOOD CELLS = 2263) PRODUCT CODE (test code = B9938T48 933-2) [facility] CenterPOCT-GLUCOSE [id number] 22:44:20 Test Item Value Reference Range Interpretation Comments POC-GLUCOSE METER 162 mg/dL 70-110 H : TESTED A T [facility] 6720 (BEAKER) (test code = [facility], 153) [address]: Proctologist/Techni dakota ID = [id number] for MARCOS WESTFALL POCT-GLUCOSE [id number] 17:43:25 Test Item Value Reference Range Interpretation Comments POC-GLUCOSE METER 145 mg/dL 70-110 H : TESTED A T [facility] 6720 (BEAKER) (test code = [facility], 153) [address]: Proctologist/Techni dakota ID = [id number] for DELMAR COOPER POCT-GLUCOSE [id number] 12:01:10 Test Item Value Reference Range Interpretation Comments POC-GLUCOSE METER 147 mg/dL 70-110 H : TESTED A T [facility] 6720 (BEAKER) (test code = [facility], 153) [address]: Proctologist/Techni dakota ID = [id number] for DELMAR COOPER POCT-GLUCOSE [id number] 07:49:49 Test Item Value Reference Range Interpretation Comments POC-GLUCOSE METER 131 mg/dL 70-110 H : TESTED A T [facility] 6720 (BEAKER) (test code = [facility], 153) [address]: Proctologist/Techni dakota ID = [id number] for DELMAR COOPER COMPLEMENT COMPONENT [id number] 02:28:40 Test Item Value Reference Range Interpretation Comments C4 COMPLEMENT (BEAKER) (test code = 5 mg/dL 15-57 L 394) Proctologist ID - BSCOMPLEMENT COMPONENT [id number] 02:28:40 Test Item Value Reference Range Interpretation Comments C3 COMPLEMENT (BEAKER) (test code = 38 mg/dL 82-193 L 393) Proctologist ID - BSHEPATIC FUNCTION [id number] 02:27:21 Test Item Value Reference Range Interpretation [...] (test code = 11 U/L 6-55 347) Proctologist ID - [id number] 02:27:20 Test Item Value Reference Range Interpretation Comments MAGNESIUM (BEAKER) (test code = 1.6 mg/dL 1.6-2.6 627) Proctologist ID - [id number] 02:27:20 Test Item Value Reference Range Interpretation Comments PHOSPHORUS (BEAKER) (test code = 3.0 mg/dL 2.3-4.7 604) Proctologist ID - BSBASIC METABOLIC [id number] 02:27:19 Test Item Value Reference Range Interpretation [...] S NOT APPLICABLE FOR DIALYSIS PATIEN TS. Proctologist ID - BSVANCOMYCIN LEVEL, [id number] 02:21:15 Test Item Value Reference Range Interpretation Comments VANCOMYCIN TROUGH (BEAKER) (test 22.5 ug/mL 10.0-20.0 H code = 522) Proctologist ID - BSCBC (HEMOGRAM ONLY)2021-09-30 02:04:23 Test [...] H (BEAKER) (test code = 413) POCT-GLUCOSE [id number] 20:56:24 Test Item Value Reference Range Interpretation Comments POC-GLUCOSE METER 187 mg/dL 70-110 H : TESTED Daphne Miller [facility] 6720 (BEAKER) (test code = [place], 1538) [address]: Proctologist/Techni dakota ID = [id number] for HERLINDA VELASQUEZ CREATININE, RANDOM [id number] 19:52:48 Test Item Value Reference Range Interpretation Comments CREATININE URINE (BEAKER) (test 38.8 mg/dL code = 375) Reference Range: No NormalsOperator ID - BSPROTEIN, RANDOM [id number] 19:52:48 Test Item Value Reference Range Interpretation Comments PROTEIN, URINE (BEAKER) (test code = 25 mg/dL 0-14 H 1569) Proctologist ID - BSURINALYSIS W/ [id number] 18:44:32 Test Item Value Reference Range Interpretation [...] = 1521) SOURCE(BEAKER) (test code = 2795) Proctologist ID - [auto]Proctologist ID - techAmylase, body [id number] 09:10:30 Test Item Value Reference Range Interpretation Comments Amylase, Fluid (test 18 U/L code = 1795-4) IDALIA (test code = Absence of reference IDALIA) range indicates that normals have not been defined.Assay performance has not been validated for this type of specimen. Proctologist ID - [id number] [facility] CenterAmylase, body [id number] 09:10:30 Test Item Value Reference Range Interpretation Comments Amylase, Fluid (test 18 U/L code = 1795-4) IDALIA (test code = Absence of reference IDALIA) range indicates that normals have not been defined.Assay performance has not been validated for this type of specimen. Proctologist ID - [id number] [facility] CenterAmylase, body [id number] 09:10:30 Test Item Value Reference Range Interpretation Comments Amylase, Fluid (test 18 U/L code = 1795-4) IDALIA (test code = Absence of reference IDALIA) range indicates that normals have not been defined.Assay performance has not been validated for this type of specimen. Proctologist ID - [id number] [facility] CenterAmylase, body [id number] 09:10:30 Test Item Value Reference Range Interpretation Comments Amylase, Fluid (test 18 U/L code = 1795-4) IDALIA (test code = Absence of reference IDALIA) range indicates that normals have not been defined.Assay performance has not been validated for this type of specimen. Proctologist ID - [id number] [facility] CenterAmylase, body [id number] 09:10:30 Test Item Value Reference Range Interpretation Comments Amylase, Fluid (test 18 U/L code = 1795-4) IDALIA (test code = Absence of reference IDALIA) range indicates that normals have not been defined.Assay performance has not been validated for this type of specimen. Proctologist ID - [id number] [facility] CenterAmylase, body [id number] 09:10:30 Test Item Value Reference Range Interpretation Comments Amylase, Fluid (test 18 U/L code = 1795-4) IDALIA (test code = Absence of reference IDALIA) range indicates that normals have not been defined.Assay performance has not been validated for this type of specimen. Proctologist ID - [id number] [facility] CenterAMYLASE, BODY [id number] 09:10:30 Test Item Value Reference Range Interpretation Comments AMYLASE FLUID (BEAKER) (test code = 18 U/L 350) Absence of reference range indicates that normals have not been defined.Assay performance has not been validated for this type of specimen.Proctologist ID - [id number]-YGMLDNI [id number] 08:52:13 Test Item Value Reference Range Interpretation Comments POC-GLUCOSE METER 103 mg/dL 70-110 : TESTED A T [facility] 6720 (BEAKER) (test code = [place], 1538) [address]: Proctologist/Techni dakota ID = [id number] for DELMAR COOPER [id number] 05:58:12 Test Item Value Reference Range Interpretation Comments PHOSPHORUS (BEAKER) (test code = 3.7 mg/dL 2.3-4.7 604) Proctologist ID - BISI GHEPATIC FUNCTION [id number] 05:58:12 Test Item Value Reference Range Interpretation [...] (test code = 10 U/L 6-55 347) Proctologist ID - BISI GBASIC METABOLIC [id number] 05:58:11 Test Item Value Reference Range Interpretation [...] S NOT APPLICABLE FOR DIALYSIS PATIEN TS. Proctologist ID - BISI [id number] 05:58:11 Test Item Value Reference Range Interpretation Comments MAGNESIUM (BEAKER) (test code = 1.7 mg/dL 1.6-2.6 627) Proctologist ID - BISI GCBC (HEMOGRAM ONLY)2021-09-29 05:50:24 [...] H (BEAKER) (test code = 413) PROTHROMBIN TIME/[id number] 05:37:22 Test Item Value Reference Range Interpretation Comments PROTIME (BEAKER) 15.2 seconds 11.9-14.2 H (test code = 759) INR (GENEVA) (test 1.22 See_Comment [Automat ed message] code = 370) The system [facility] generated this result transmitted ref erence range: <=5.90. The reference range was not used to int erpret this result as normal/abnormal . RECOMMENDED COUMADIN/WARFARIN INR THERAPY RANGESSTANDARD DOSE: 2.0 - 3.0 Includes: PROPHYLAXIS for venous thrombosis, systemic embolization; TREATMENT for venous thrombosis and/or pulmonary embolus.HIGH RISK: Target INR is 2.5-3.5 for patients with mechanical heart valves.POCT-GLUCOSE [id number] 20:50:31 Test Item Value Reference Range Interpretation Comments POC-GLUCOSE METER 159 mg/dL 70-110 H : Notified RN/MD: (GENEVA) (test code = TESTED AT [facility] 6769 1080) [facility], [address]: Proctologist/Techni dakota ID = [id number] for HEATH GRANDE RAD, CHEST, 1 VIEW, NON [id number] 19:15:00Reason for exam:->preop patient for OR tomorrowShould this be performed at the bedside?->Yes [facility] : 2000 Sex: MFINAL REPORT [...] Verified Date/Time: 09/28/2021 19:15:11 BLOOD CULTURE IDENTIFICATION [id number] 18:24:37 Test Item Value Reference Interpretation Comments Range LISTERIA MONOCYTOGENES Not detected Not detected (test code = 0713087) STAPHYLOCOCCUS (test Detected Not detected A Coagula se negative code = 7063404) Staph specie s (CoNS)- methici llin resistantFirst- line therapy: Vancom ycin MecA DETECTED Possible contamination. The likelihood of pathogenicity i s increased if th e organism is observed in multiple blood cultures obtain ed from separate venipunctures. Reference Range : Not Detected STAPHYLOCOCCUS AUREUS Not detected Not detected (test code = 3374809) STREPTOCOCCUS (test code Not detected Not detected = 3586514) STREPTOCOCCUS AGALACTIAE Not detected Not detected (GROUP B) (test code = 5631704) STREPTOCOCCUS PNEUMONIAE Not detected Not detected (test code = 7211636) STREPTOCOCCUS PYOGENES Not detected Not detected (GROUP A) (test code = 9731418) ACINETOBACTER BAUMANNII Not detected Not detected (test code = 5556528) HAEMOPHILUS INFLUENZAE Not detected Not detected (test code = 5867057) NEISSERIA MENINGITIDIS Not detected Not detected (test code = 1427834) ENTEROBACTERIACEAE (test Not detected Not detected code = 0107004) ENTEROBACTER CLOACOE Not detected Not detected COMPLEX (test code = 9472314) KLEBSIELLA OXYTOCA (test Not detected Not detected code = 0688289) KLEBSIELLA PNEUMONIAE Not detected Not detected (test code = 1650) PROTEUS (test code = Not detected Not detected 9999288) SERRATIA MARCESCENS Not detected Not detected (test code = 3928974) STACEY ALBICANS (test Not detected Not detected code = 0638162) STACEY GLABRATA (test Not detected Not detected code = 3362323) STACEY KRUSEI (test Not detected Not detected code = 2569488) STACEY PARAPSILOSIS Not detected Not detected (test code = 1582623) STACEY TROPICALIS (test Not detected Not detected code = 3351404) ESCHERICHIA COLI (test Not detected Not detected code = 5942446) METHICILLIN-RESISTANCE Detected Not detected A Note: Antimicrobial GENE (test code = resistance can ) occur via multi ple mechanisms. A N ot Detected result for the FilmArray antimicrobial resistance gene assays does not indicate antimicrobial susceptibility. Subculturing is required for species identification and susceptibility testing of isolates. VANCOMYCIN-RESISTANCE GENE (test code = 7898413) CARBAPENEM-RESISTANCE GENE (test code = 0070428) ENTEROCOCCUS-BEAKER Not detected Not detected (test code = 6391619) PSEUDOMONAS Not detected Not detected AERUGINOSA-BEAKER (test code = 8450686) Other bacteria and resistance markers not targeted by this PCR panel cannot be excluded; therefore clinical correlation and follow up of serology, culture results, and other molecular studies is required. The results are not intended to be used as the sole means for clinical diagnosis or patient management decisions. This sample was tested at the [facility] using the PlacewordArray Blood Culture ID Panel. It is FDA cleared and has been verified and approved by the [facility] for clinical use. This laboratory is CLIA-certified and College ofAmerican Pathologists (CAP)-accredited to perform high complexity testing.HEMOGLOBIN AND [id number] 17:52:48 Test Item Value Reference Range Interpretation Comments HEMOGLOBIN (BEAKER) (test code = 7.2 GM/DL 13.7-17.5 L 410) HEMATOCRIT (BEAKER) (test code = 24.6 % 40.1-51.0 L 411) Proctologist ID - 2015Ronnupn8979-27-66 12:45:54 Test Item Value Reference Range Interpretation Comments Amylase (test code = 32 U/L 25-125 1798-8) IDALIA (test code = IDALIA) Proctologist ID - PIAYA L Lab Interpretation (test Normal code = 23259-7) [facility] 12:45:54 Test Item Value Reference Range Interpretation Comments Amylase (test code = 32 U/L 25-125 1798-8) IDALIA (test code = IDALIA) Proctologist ID - PIAYA L Lab Interpretation (test Normal code = 23534-5) [facility] 12:45:54 Test Item Value Reference Range Interpretation Comments Amylase (test code = 32 U/L 25-125 1798-8) IDALIA (test code = IDALIA) Proctologist ID - PIAYA L Lab Interpretation (test Normal code = 58349-0) [facility] 12:45:54 Test Item Value Reference Range Interpretation Comments Amylase (test code = 32 U/L 25-125 1798-8) IDALIA (test code = IDALIA) Proctologist ID - PIAYA L Lab Interpretation (test Normal code = 08268-0) [facility] 12:45:54 Test Item Value Reference Range Interpretation Comments Amylase (test code = 32 U/L 25-125 1798-8) IDALIA (test code = IDALIA) Proctologist ID - PIAYA L Lab Interpretation (test Normal code = 89523-5) [facility] 12:45:54 Test Item Value Reference Range Interpretation Comments Amylase (test code = 32 U/L 25-125 1798-8) IDALIA (test code = IDALIA) Proctologist ID - PIAYA L Lab Interpretation (test Normal code = 70770-2) [facility] 12:45:54 Test Item Value Reference Range Interpretation Comments AMYLASE (BEAKER) (test code = 349) 32 U/L 25-125 Proctologist ID - PIAYA LPOCT-GLUCOSE [id number] 12:21:36 Test Item Value Reference Range Interpretation Comments POC-GLUCOSE METER 89 mg/dL 70-110 : TESTED A T [facility] 6720 (BEAKER) (test code = FREDORAVINDRA [place] [facility], 1538) 01446: Proctologist/Techni dakota ID = [id number] for Milena Wei POCT-GLUCOSE [id number] 07:58:39 Test Item Value Reference Range Interpretation Comments POC-GLUCOSE METER 101 mg/dL 70-110 : TESTED A T [facility] 6720 (BEAKER) (test code [facility], = 1538) 41765: Proctologist/Techni dakota ID = [id number] for Martha Bell (CELLAVISION MANUAL DIFF)2021-09-28 06:59:01 [...] CONCENTRATION Adequate (CELLAVISION)(BEAKER) (test code = 3438) Proctologist ID - [id number] ID - Rebecca Elizondo comments: Slide comments: CBC W/PLT COUNT & AUTO [id number] 06:59:00 Test Item Value Reference Range Interpretation [...] 0-0 (BEAKER) (test code = 413) SARS-COV2/RT-PCR ([facility])2021-09-28 05:26:25 Test Item Value Reference Range Interpretation Comments SARS-COV2/RT-PCR Negative Negative The SARS-Co V-2 target (test code = nucleic acids a re not 1051096) detected in thi s specimen. Negative result [...] revoked sooner. Fact Sheet for Healthcare Providers: https://www.[employer] m/Documents/Xpert%20Xpress%20SARS%20CoV-2/Fact%20Sheets/302-3802%29FSRB-EZR-4%20 HEALTHCARE%20PROVIDERS%20FACT%20SHEET.pdf Fact Sheet for Healthcare Patients: https://www.[employer]/Documents/Xpert%20Xp ress%20SARS%20CoV-2/Fact%20Sheets/302-3801%60KEVU-WQW-7%20PATIENT%20FACT%20SHEET .pdfBASIC METABOLIC [id number] 05:15:58 Test Item Value Reference Range Interpretation [...] S NOT APPLICABLE FOR DIALYSIS PATIEN TS. Proctologist ID - [id number] 04:33:33 Test Item Value Reference Range Interpretation Comments PHOSPHORUS (BEAKER) (test code = 4.1 mg/dL 2.3-4.7 604) Proctologist ID - BSHEPATIC FUNCTION AGVQZ8205-78-67 04:33:33 Test Item Value Reference Range Interpretation [...] (test code = 11 U/L 6-55 347) Proctologist ID - LXJWBYRBAPQ2822-34-36 04:33:32 Test Item Value Reference Range Interpretation Comments MAGNESIUM (BEAKER) (test code = 1.5 mg/dL 1.6-2.6 L 627) Proctologist ID - BSLACTIC ACID, [id number] 04:27:30 Test Item Value Reference Range Interpretation Comments LACTATE BLOOD VENOUS (2) (BEAKER) 1.04 mmol/L 0.50-2.20 (test code = 2872) Proctologist ID - BSPROTHROMBIN TIME/[id number] 04:23:49 Test Item Value Reference Range Interpretation Comments PROTIME (BEAKER) 15.5 seconds 11.9-14.2 H (test code = 759) INR (BEAKER) (test 1.25 See_Comment [Automat ed message] code = 370) The system [facility] generated this result transmitted ref erence range: <=5.90. The reference range was not used to int erpret this result as normal/abnormal . RECOMMENDED COUMADIN/WARFARIN INR THERAPY RANGESSTANDARD DOSE: 2.0 - 3.0 Includes: PROPHYLAXIS for venous thrombosis, systemic embolization; TREATMENT for venous thrombosis and/or pulmonary embolus.HIGH RISK: Target INR is 2.5-3.5 for patients with mechanical heart valves.CT, [id number] 00:01:00Unlisted Reason for Exam - Click Yes and Enter Reason Below->YesUnlisted Reason for Exam->necrotizing panc on OSH imagingIs this for enterography?->NoWill this procedure require oral contrast?->No [facility] 2000 Sex: MFINAL [...] CONCENTRATION Adequate (CELLAVISION)(BEAKER) (test code = 3438) Proctologist ID - Romelia DimasAlisa comments: Slide comments:COMPREHENSIVE METABOLIC [id number] 22:28:04 Test Item Value Reference Range Interpretation [...] S NOT APPLICABLE FOR DIALYSIS PATIEN TS. Proctologist ID - [id number] 22:28:04 Test Item Value Reference Range Interpretation Comments LIPASE (BEAKER) (test code = 749) 24 U/L 8-78 Proctologist ID - BSLACTIC ACID, [id number] 22:22:02 Test Item Value Reference Range Interpretation Comments LACTATE BLOOD VENOUS 1.20 mmol/L 0.50-2.20 Specime n slightly (2) (BEAKER) (test hemolyzed code = 2872) Proctologist ID - BSPROTHROMBIN TIME/[id number] 22:18:27 Test Item Value Reference Range Interpretation Comments PROTIME (BEAKER) 15.2 seconds 11.9-14.2 H (test code = 759) INR (BEAKER) (test 1.22 See_Comment [Automat ed message] code = 370) The system [facility] generated this result transmitted ref erence range: <=5.90. The reference range was not used to int erpret this result as normal/abnormal . RECOMMENDED COUMADIN/WARFARIN INR THERAPY RANGESSTANDARD DOSE: 2.0 - 3.0 Includes: PROPHYLAXIS for venous thrombosis, systemic embolization; TREATMENT for venous thrombosis and/or pulmonary embolus.HIGH RISK: Target INR is 2.5-3.5 for patients with mechanical heart valves.CBC W/PLT COUNT & AUTO [id number] 22:11:15 Test Item Value Reference Range Interpretation [...] = 413) RAD, CHEST, 1 VIEW, NON [id number] 21:03:00Reason for exam:->ABNORMAL IMAGING RESULTShould this be performed at the bedside?->Yes [facility] : 2000 Sex: MFINAL REPORT TECHNIQUE: Frontal view of the chest. INDICATION: ABNORMAL IMAGING RESULT. COMPARISON: 09/10/2021. FINDINGS: LINES/TUBES: None. HEART AND MEDIASTINUM: Cardiomediastinal contour is within normal limits. LUNGS: The lungs are well inflated and clear. No consolidation or pulmonary edema. PLEURA: No pneumothorax. No significant pleural effusion. SOFT TISSUES AND BONES: Unremarkable. IMPRESSION:No acute cardiopulmonary process. Signed: Andrés Holloway [facility] Verified Date/Time: 09/27/2021 21:03:24 - CT ABDOMEN W W/O CONTRAST 2021-09-27 15:48:00 [facility] : 2000 Sex: M FAX: Willard Vaughn Jr [phone] [place]: St: REG Name: VANGIE OVALLE [facility] : 2000 Age/S: 21/M [address] Unit: [id number] Loc: [place] [address] Phys: Willard Crouch Jr, MD Acct: [id number] Dis Date: Status: REG CLI PHONE #: [phone] Exam Date: 09/27/2021 1530 FAX #: [phone]: PANCREATITIS EXAMS: CPT CODE: [id number] CT ABDOMEN W W/O CONTRAST 78306 EXAM: CT ABDOMEN WITH AND WITHOUT CONTRAST [...] seen in the subhepatic space. Adrenals: Unremarkable. :No renal mass or hydronephrosis. GI: Centralized bowel without bowel obstruction or pneumoperitoneum. No bowel-containing hernias. Retroperitoneum and pelvis: Aorta and IVC appear patent. Bones and soft tissues: No acute osseous abnormalities. Mild dependent anasarca. PAGE 1 Signed Report (CONTINUED) FAX: Willard Vaughn Jr [phone] [place]: St: REG Name: VANGIE OVALLE [facility] : 2000 Age/S: 21/M [address] Unit: [id number] Loc: [place] [address] Phys: Willard Crouch Jr, MD Acct: [id number] Dis Date: Status: REG CLI PHONE #: [phone] Exam Date: 09/27/2021 1530 FAX #: [phone] Reason: PANCREATITIS EXAMS: CPT CODE: [id number] CT ABDOMEN W W/O CONTRAST 48844 (Continued) IMPRESSION: 1. Slight heterogeneous enhancement of [...] CODING PURPOSES ONLY RESULT CODE: CVR at 1548 Reported and signed by: Vandana Madison MD CC: Willard Crouch Jr Technologist: LAMBERTO ARTEAGA Trnscrd Dt/Tm: 09/27/2021 (9020) tARGELIAPXC Orig Print D/T: S: 09/27/2021 (3431 PAGE 2 Signed ReportBEDSIDE [id number] 15:20:00 Test Item Value Reference Range Interpretation Comments BEDSIDE CREATININE (test code = 0.7 MG/DL 0.5-1.0 N CREATBED) Fecal [id number] 22:49:02 Test Item Value Reference Range Interpretation Comments Fecal Leukocytes (test No fecal leukocytes No fecal leukocytes code = 52612-2) seen seen Lab Interpretation Normal (test code = 91089-9) [facility] [id number] 22:49:02 Test Item Value Reference Range Interpretation Comments Fecal Leukocytes (test No fecal leukocytes No fecal leukocytes code = 34535-4) seen seen Lab Interpretation Normal (test code = 66318-9) [facility] [id number] 22:49:02 Test Item Value Reference Range Interpretation Comments Fecal Leukocytes (test No fecal leukocytes No fecal leukocytes code = 36053-4) seen seen Lab Interpretation Normal (test code = 85369-6) [facility] Center[facility] [id number] 22:49:02 Test Item Value Reference Range Interpretation Comments Fecal Leukocytes (test No fecal leukocytes No fecal leukocytes code = 46215-2) seen seen Lab Interpretation Normal (test code = 32971-7) [facility] ucglpyqwmj4676-58-89 22:49:02 Test Item Value Reference Range Interpretation Comments Fecal Leukocytes (test No fecal leukocytes No fecal leukocytes code = 46802-5) seen seen Lab Interpretation Normal (test code = 51563-1) [facility] uoayjzatwu8370-82-34 22:49:02 Test Item Value Reference Range Interpretation Comments Fecal Leukocytes (test No fecal leukocytes No fecal leukocytes code = 46271-7) seen seen Lab Interpretation Normal (test code = 55773-4) [facility] CenterFECAL [id number] 22:49:02 Test Item Value Reference Range Interpretation Comments FECAL LEUKOCYTES No fecal leukocytes No fecal leukocytes (BEAKER) (test code = seen seen 992) POCT-GLUCOSE [id number] 16:36:44 Test Item Value Reference Range Interpretation Comments POC-GLUCOSE METER 204 mg/dL 70-110 H : TESTED A T [facility] 6720 (BEAKER) (test code = [facility], 1538) 22678: Proctologist/Techni dakota ID = [id number] for Co ok, Susanna POCT-GLUCOSE [id number] 11:38:42 Test Item Value Reference Range Interpretation Comments POC-GLUCOSE METER 122 mg/dL 70-110 H : TESTED A T [facility] 6720 (BEAKER) (test code = [facility], 1538) 11986: Proctologist/Techni dakota ID = [id number] for Co ok, Susanna BASIC METABOLIC [id number] 08:51:41 Test Item Value Reference Range Interpretation [...] S NOT APPLICABLE FOR DIALYSIS PATIEN TS. Proctologist ID - DBPOCT-GLUCOSE [id number] 07:42:10 Test Item Value Reference Range Interpretation Comments POC-GLUCOSE METER 100 mg/dL 70-110 : TESTED A T [facility] 6720 (BEAKER) (test code = [facility], 1538) 67892: Proctologist/Techni dakota ID = [id number] for Co ok, Susanna [id number] 06:05:53 Test Item Value Reference Range Interpretation Comments MAGNESIUM (BEAKER) (test code = 1.5 mg/dL 1.6-2.6 L 627) Proctologist ID - DBPOCT-GLUCOSE [id number] 22:10:06 Test Item Value Reference Range Interpretation Comments POC-GLUCOSE METER 226 mg/dL 70-110 H : TESTED A T [facility] 6720 (BEAKER) (test code = [facility], 1538) 21204: Proctologist/Techni dakota ID = [id number] for Guanakito farida Darren (contract), Maribel i POCT-GLUCOSE [id number] 17:25:35 Test Item Value Reference Range Interpretation Comments POC-GLUCOSE METER 167 mg/dL 70-110 H : TESTED A T [facility] 6720 (BEAKER) (test code = [facility], 1538) 31339: Proctologist/Techni dakota ID = [id number] for Co ok, Susanna POCT-GLUCOSE [id number] 11:53:31 Test Item Value Reference Range Interpretation Comments POC-GLUCOSE METER 84 mg/dL 70-110 : TESTED A T [facility] 6720 (BEAKER) (test code = [facility], 1538) 28938: Proctologist/Techni dakota ID = [id number] for Sahil Lighta POCT-GLUCOSE [id number] 07:47:58 Test Item Value Reference Range Interpretation Comments POC-GLUCOSE METER 91 mg/dL 70-110 : TESTED A T [facility] 6720 (BEAKER) (test code = [facility], 1538) 35628: Proctologist/Techni dakota ID = [id number] for Sahil Lighta [id number] 05:26:53 Test Item Value Reference Range Interpretation Comments FERRITIN (BEAKER) (test code = 1277.07 ng/mL 5.00-275.00 H 361) Proctologist ID - ALVINA [id number] 05:16:29 Test Item Value Reference Range Interpretation Comments MAGNESIUM (BEAKER) 1.5 mg/dL 1.6-2.6 L Specimen slightly (test code = 627) hemolyzed Proctologist ID - BSCOMPREHENSIVE METABOLIC [id number] 05:16:29 Test Item Value Reference Range Interpretation [...] S NOT APPLICABLE FOR DIALYSIS PATIEN TS. Proctologist ID - BSCBC W/PLT COUNT & AUTO [id number] 05:09:25 Test Item Value Reference Range Interpretation [...] PERCENT (BEAKER) (test code = 2801) POCT-GLUCOSE [id number] 23:08:33 Test Item Value Reference Range Interpretation Comments POC-GLUCOSE METER 180 mg/dL 70-110 H : TESTED A T [facility] (BEAKER) (test code = [place], 1538) 43665: Proctologist/Techni dakota ID = [id number] for CAROLINA LENZ Giardia szervaf2136-45-85 19:26:40 Test Item Value Reference Range Interpretation Comments STATUS: FINAL (QUEST) (test code = ) RESULT: Not Detected Reference Range :Not (QUEST) (test Detected code = 20151121) Source: (test STOOL code = 04356-9) Comment: See Below NOTE: Due to (test code = intermittent edding, ) one negativesam ple does not necess arily rule out the presenceof a pa rasitic infection. IDALIA (test Performing Lab *JESSENIA code = IDALIA) [facility], [address] [place], [place] [address] Bryan Barcenas MD [facility] CenterGiardia [id number] 19:26:40 Test Item Value Reference Range Interpretation Comments STATUS: FINAL (QUEST) (test code = ) RESULT: Not Detected Reference Range :Not (QUEST) (test Detected code = 20151121) Source: (test STOOL code = 37032-9) Comment: See Below NOTE: Due to (test code = intermittent edding, ) one negativesam ple does not necess arily rule out the presenceof a pa rasitic infection. IDALIA (test Performing Lab *JESSENIA code = IDALIA) [facility] [place], [address] [place] [address] Bryan Barcenas MD [facility] Center[facility]ia [id number] 19:26:40 Test Item Value Reference Range Interpretation Comments STATUS: FINAL (QUEST) (test code = ) RESULT: Not Detected Reference Range :Not (QUEST) (test Detected code = 20151121) Source: (test STOOL code = 75912-1) Comment: See Below NOTE: Due to (test code = intermittent edding, 7323594) one negativesam ple does not necess arily rule out the presenceof a pa rasitic infection. IDALIA (test Performing Lab *JESSENIA code = IDALIA) [facility], [address] [place], [place] [address] Bryan Barcenas MD [facility] [id number] 19:26:40 Test Item Value Reference Range Interpretation Comments STATUS: FINAL (QUEST) (test code = ) RESULT: Not Detected Reference Range :Not (QUEST) (test Detected code = 20151121) Source: (test STOOL code = 53615-3) Comment: See Below NOTE: Due to (test code = intermittent edding, ) one negativesam ple does not necess arily rule out the presenceof a pa rasitic infection. IDALIA (test Performing Lab *JESSENIA code = IDALIA) [facility], [address] [place], [place] [address] Bryan Barcenas MD [facility] [id number] 19:26:40 Test Item Value Reference Range Interpretation Comments STATUS: FINAL (QUEST) (test code = ) RESULT: Not Detected Reference Range :Not (QUEST) (test Detected code = 20151121) Source: (test STOOL code = 76629-9) Comment: See Below NOTE: Due to (test code = intermittent sh edding, ) one negativesam ple does not necess arily rule out the presenceof a pa rasitic infection. IDALIA (test Performing Lab *JESSENIA code = IDALIA) [facility], [address] [place] [address] Bryan Barcenas MD [facility] [id number] 19:26:40 Test Item Value Reference Range Interpretation Comments STATUS: FINAL (QUEST) (test code = ) RESULT: Not Detected Reference Range :Not (QUEST) (test Detected code = 20151121) Source: (test STOOL code = 52159-4) Comment: See Below NOTE: Due to (test code = intermittent sh edding, ) one negativesam ple does not necess arily rule out the presenceof a pa rasitic infection. IDALIA (test Performing Lab *JESSENIA code = IDALIA) [facility], [address] [place] [address] Bryan Barcenas MD [facility] CenterPOCT-GLUCOSE [id number] 15:54:55 Test Item Value Reference Range Interpretation Comments POC-GLUCOSE METER 302 mg/dL 70-110 H : TESTED A T [facility] 6720 (BEAKER) (test code = [place] [facility], 1538) 07[address]: Proctologist/Techni dakota ID = [id number] for Caden ssie, Kevin POCT-GLUCOSE [id number] 11:59:06 Test Item Value Reference Range Interpretation Comments POC-GLUCOSE METER 118 mg/dL 70-110 H : [facility] (test code = [place] [facility], 1538) 59623: Proctologist/Techni dakota ID = [id number] for Caden ssie, Kevin [facility] Gjfxwmnvqga1133-66-85 10:29:02See scanned reportJohn [facility]. [facility] Mbplnwibcnm1112-23-10 10:29:02See scanned report [facility] Tkeywrrexab6344-14-04 10:29:02See scanned reportJohn C. [facility] Glogdeemvuu6398-30-37 10:29:02See scanned reportJohn C. [facility] Lvlsobxuegk4763-44-24 10:29:02See scanned reportJohn C. [facility] Jjbsimfxexy7841-19-61 10:29:02See scanned reportSalinas Valley Health Medical CenterPOCT-GLUCOSE [id number] 08:15:03 Test Item Value Reference Range Interpretation Comments POC-GLUCOSE METER 153 mg/dL 70-110 H : TESTED A T [facility] 6720 (BEAKER) (test code = [place] [facility], 1538) 88407: Proctologist/Techni dakota ID = [id number] for Caden ssie, Kevin [id number] 05:39:21 Test Item Value Reference Range Interpretation Comments FERRITIN (LEOAKER) (test code = 2065.19 ng/mL 5.00-275.00 H 361) Proctologist ID - ALVINA MOperator ID - ALVINA [id number] 04:33:07 Test Item Value Reference Range Interpretation Comments MAGNESIUM (BEAKER) (test code = 1.7 mg/dL 1.6-2.6 627) Proctologist ID - ALVINA MCOMPREHENSIVE METABOLIC [id number] 04:33:06 Test Item Value Reference Range Interpretation [...] S NOT APPLICABLE FOR DIALYSIS PATIEN TS. Proctologist ID - ALVINA MCBC W/PLT COUNT & AUTO [id number] 04:05:50 Test Item Value Reference Range Interpretation [...] PERCENT (BEAKER) (test code = 2801) POCT-GLUCOSE [id number] 22:26:51 Test Item Value Reference Range Interpretation Comments POC-GLUCOSE METER 263 mg/dL 70-110 H : TESTED A T [facility] 6720 (BEAKER) (test code = [place] [facility], 1538) 76430: Proctologist/Techni dakota ID = [id number] for Cherry Morrissey POCT-GLUCOSE [id number] 17:52:33 Test Item Value Reference Range Interpretation Comments POC-GLUCOSE METER 320 mg/dL 70-110 H : [facility] ([facility] (test code [facility], = 1538) 09985: Proctologist/Techni dakota ID = [id number] for SD GALLO [id number] 16:04:21 Test Item Value Reference Range Interpretation Comments MAGNESIUM (BEAKER) (test code = 1.6 mg/dL 1.6-2.6 627) Proctologist ID - BSPOCT-GLUCOSE [id number] 13:44:43 Test Item Value Reference Range Interpretation Comments POC-GLUCOSE METER 243 mg/dL 70-110 H : TESTED A T [facility] 6720 (BEAKER) (test code [facility], = 1538) 22857: Proctologist/Techni dakota ID = [id number] for SD GALLO ANTI-DNA [id number] 12:19:23 Test Item Value Reference Range Interpretation Comments ANTI-DNA TITER (BEAKER) (test code = :80 1553) DOUBLE-STRANDED DNA (DSDNA) [id number] 12:19:05 Test Item Value Reference Range Interpretation Comments ANTI-DNA DS (BEAKER) (test code = Positive Negative 1055) SARS-COV2/RT-PCR [facility])2021-09-19 10:54:11 Test Item Value Reference Range Interpretation Comments SARS-COV2/RT-PCR (test Negative Not Detected, Negative, code = 6185255) See external report for linked test SARS-COV-2 PERFORMING LAB [facility] SHAUNA (test code = 7296581) Negative result for this test determines that [...] of the Act.Fact Sheet for Healthcare Prov iders:https://www.[employer]/sites/default/files/product/documents/Fact_Sheet_HC _Aqinfcmst_Yqoq_UXBL-IdJ-1.pdfFact Sheet for Healthcare Patients:https://www.[employer]/sites/default/files/product/docume nts/Dqyj_Xrikd_Knmpttjd_Osny_KJMV-AsE-8.pdfPerforming Laboratory:[facility].[place], [place] [address]KGZP-AOTUTZC METER 2021-09-19 08:21:15 Test Item Value Reference Range Interpretation Comments POC-GLUCOSE METER 228 mg/dL 70-110 H : TESTED A T [facility] 6720 (GENEVA) (test code [facility], = 1538) 18538: Proctologist/Techni dakota ID = [id number] for SD GALLO [id number] 08:08:54 Test Item Value Reference Range Interpretation Comments MAGNESIUM (LEOAKER) (test code = 1.4 mg/dL 1.6-2.6 L 627) Proctologist ID - BRANDIN CCOMPREHENSIVE METABOLIC [id number] 08:08:53 Test Item Value Reference Range Interpretation [...] S NOT APPLICABLE FOR DIALYSIS PATIEN TS. Proctologist ID - BRANDIN [id number] 07:30:23 Test Item Value Reference Range Interpretation Comments FERRITIN (BEAKER) (test code = 2272.75 ng/mL 5.00-275.00 H 361) Proctologist ID - SHREE WOperator ID Cherelle SHREE WCBC W/PLT COUNT & AUTO [id number] 06:07:16 Test Item Value Reference Range Interpretation [...] PERCENT (BEAKER) (test code = 2801) POCT-GLUCOSE [id number] 21:42:25 Test Item Value Reference Range Interpretation Comments POC-GLUCOSE METER 218 mg/dL 70-110 H : TESTED A T [facility] (Unata) (test code = [place] [facility], 1538) 72307: Proctologist/Techni dakota ID = [id number] for ABE TEJADA POCT-GLUCOSE [id number] 17:08:14 Test Item Value Reference Range Interpretation Comments POC-GLUCOSE METER 148 mg/dL 70-110 H : TESTED A T [facility] (Unata) (test code [place] [facility], = 1538) 15497: Proctologist/Techni dakota ID = [id number] for RITESHT [place] MISCELLANEOUS LAB [id number] 14:26:25 Test Item Value Reference Range Interpretation Comments SCAN RESULT (test code = See scanned report [id number]) See scanned reportCMV PCR, [id number] 14:23:40 Test Item Value Reference Range Interpretation [...] and its performance characteristics determined by the [facility] Pathol ogy Department, Section of Molecular Pathology. [...] A T [facility] (BEAKER) (test code [facility], = 1538) 78082: Proctologist/Techni dakota ID = [id number] for SD GALLO MISCELLANEOUS LAB [id number] 09:55:02 Test Item Value Reference Range Interpretation Comments SCAN RESULT (test code = See scanned report [id number]) See scanned reportPOCT-GLUCOSE [id number] 09:36:32 Test Item Value Reference Range Interpretation Comments POC-GLUCOSE METER 99 mg/dL 70-110 : TESTED A T [facility] (BEAKER) (test code = [place] [facility], 1538) 56605: Proctologist/Techni dakota ID = [id number] for SD GALLO COMPREHENSIVE METABOLIC [id number] 07:28:53 Test Item Value Reference Range Interpretation [...] S NOT APPLICABLE FOR DIALYSIS PATIEN TS. Proctologist ID - [id number] 07:28:52 Test Item Value Reference Range Interpretation Comments MAGNESIUM (BEAKER) 1.3 mg/dL 1.6-2.6 L Specimen slightly (test code = 627) hemolyzed Proctologist ID - DBCBC W/PLT COUNT & AUTO [id number] 07:26:37 Test Item Value Reference Range Interpretation [...] PERCENT (BEAKER) (test code = 2801) POCT-GLUCOSE [id number] 22:29:02 Test Item Value Reference Range Interpretation Comments POC-GLUCOSE METER 207 mg/dL 70-110 H : TESTED A T [facility] (BEAKER) (test code = [facility], 1538) 78408: Proctologist/Techni dakota ID = [id number] for CAROLINA LENZ POCT-GLUCOSE [id number] 17:18:02 Test Item Value Reference Range Interpretation Comments POC-GLUCOSE METER 228 mg/dL 70-110 H : TESTED A T [facility] (BEAKER) (test code = [facility], 1538) 49958: Proctologist/Techni dakota ID = [id number] for CASEY KERNS POCT-GLUCOSE [id number] 12:29:44 Test Item Value Reference Range Interpretation Comments POC-GLUCOSE METER 174 mg/dL 70-110 H : TESTED A T [facility] (BEAKER) (test code = [place] [facility], 1538) 53285: Proctologist/Techni dakota ID = [id number] for CASEY KERNS POCT-GLUCOSE [id number] 12:15:50 Test Item Value Reference Range Interpretation Comments POC-GLUCOSE METER 111 mg/dL 70-110 H : TESTED A T [facility] (BEAKER) (test code = [place] [facility], 1538) 32627: Proctologist/Techni dakota ID = [id number] for MASON LINK GI Pathogen Profile by PCR -ID [id number] 08:09:12 Test Item Value Reference Range Interpretation Comments CAMPYLOBACTER (PCR) Not detected Not detected (test code = 34760-9) PLESIOMONAS SHIGELLOIDES Not detected Not detected (PCR) (test code = 87189-5) SALMONELLA (PCR) (test Not detected Not detected code = 45594-1) YERSINIA ENTEROCOLITICA Not detected Not detected (PCR) (test code = 51537-3) VIBRIO CHOLERAE (PCR) Not detected Not detected (test code = 61396-1) ENTEROAGGREGATIVE E. Not detected Not detected COLI (EAEC) BY PCR (test code = 45885-1) ENTEROPATHOGENIC E. COLI Not detected Not detected (EPEC) BY PCR (test code = 52265-9) ENTEROTOXIGENIC E. COLI Not detected Not detected (ETEC) LT/ST BY PCR (test code = 21870-0) SHIGA-LIKE Not detected Not detected TOXIN-PRODUCING E. COLI (STEC) STX1/STX2 (test code = 84017-0) E. COLI O157 (PCR) (test code = 14801-6) SHIGELLA/ENTEROINVASIVE Not detected Not detected E. COLI (EIEC) BY PCR (test code = 75185-1) CRYPTOSPORIDIUM (PCR) Not detected Not detected (test code = 01959-6) CYCLOSPORA CAYETANENSIS Not detected Not detected (PCR) (test code = 47855-8) ENTAMOEBA HISTOLYTICA Not detected Not detected (PCR) (test code = 12859-6) GIARDIA LAMBLIA (PCR) Not detected Not detected (test code = 05400-6) ADENOVIRUS F 40/41 (PCR) Not detected Not detected (test code = 91121-3) ASTROVIRUS (PCR) (test Not detected Not detected code = 33601-6) NOROVIRUS GI/GII (PCR) Not detected Not detected (test code = 30752-1) ROTAVIRUS A (PCR) (test Not detected Not detected code = 53303-3) SAPOVIRUS (I, II, IV, V) Not detected Not detected BY PCR (test code = 20174-4) VIBRIO Not detected Not detected (PARAHAEMOLYTICUS, VULNIFICUS) (test code = 57971-0) IDALIA (test code = IDALIA) Other viruses, [...] [facility] using the [employer] Gastrointestinal Panel. It is FDA cleared and has been verified and approved by the [facility] Molecular Diagnostics Laboratory for clinical use. This laboratory is CLIA-certified and [employer] (CAP)-accredited to perform high complexity testing. [facility] by PCR -ID [id number] 08:09:12 Test Item Value Reference Range Interpretation Comments CAMPYLOBACTER PCR (test Not detected Not detected code = 28816-0) PLESIOMONAS SHIGELLOIDES Not detected Not detected (PCR) (test code = 17922-1) SALMONELLA (PCR) (test Not detected Not detected code = 33189-0) YERSINIA ENTEROCOLITICA Not detected Not detected (PCR) (test code = 84102-0) VIBRIO CHOLERAE (PCR) Not detected Not detected (test code = 34766-2) ENTEROAGGREGATIVE E. Not detected Not detected COLI (EAEC) BY PCR (test code = 99881-2) ENTEROPATHOGENIC E. COLI Not detected Not detected (EPEC) BY PCR (test code = 95592-3) ENTEROTOXIGENIC E. COLI Not detected Not detected (ETEC) LT/ST BY PCR (test code = 26136-9) SHIGA-LIKE Not detected Not detected TOXIN-PRODUCING E. COLI (STEC) STX1/STX2 (test code = 49741-5) E. COLI O157 (PCR) (test code = 22566-9) SHIGELLA/ENTEROINVASIVE Not detected Not detected E. COLI (EIEC) BY PCR (test code = 55486-0) CRYPTOSPORIDIUM (PCR) Not detected Not detected (test code = 75352-4) CYCLOSPORA CAYETANENSIS Not detected Not detected (PCR) (test code = 22265-3) ENTAMOEBA HISTOLYTICA Not detected Not detected (PCR) (test code = 56471-9) GIARDIA LAMBLIA (PCR) Not detected Not detected (test code = 79813-8) ADENOVIRUS F 40/41 (PCR) Not detected Not detected (test code = 08100-2) ASTROVIRUS (PCR) (test Not detected Not detected code = 37412-4) NOROVIRUS GI/GII (PCR) Not detected Not detected (test code = 09341-1) ROTAVIRUS A (PCR) (test Not detected Not detected code = 74847-5) SAPOVIRUS (I, II, IV, V) Not detected Not detected BY PCR (test code = 05535-1) VIBRIO Not detected Not detected (PARAHAEMOLYTICUS, VULNIFICUS) (test code = 83498-7) IDALIA (test code = IDALIA) Other viruses, [...] [facility] using the [employer] Gastrointestinal Panel. It is FDA cleared and has been verified and approved by the [facility] Molecular Diagnostics Laboratory for clinical use. This laboratory is CLIA-certified and [employer] (CAP)-accredited to perform high complexity testing. [facility] by PCR -ID [id number] 08:09:12 Test Item Value Reference Range Interpretation Comments CAMPYLOBACTER PCR (test Not detected Not detected code = 26156-9) PLESIOMONAS SHIGELLOIDES Not detected Not detected (PCR) (test code = 30723-8) SALMONELLA (PCR) (test Not detected Not detected code = 26566-5) YERSINIA ENTEROCOLITICA Not detected Not detected (PCR) (test code = 15502-6) VIBRIO CHOLERAE (PCR) Not detected Not detected (test code = 30380-5) ENTEROAGGREGATIVE E. Not detected Not detected COLI (EAEC) BY PCR (test code = 68463-7) ENTEROPATHOGENIC E. COLI Not detected Not detected (EPEC) BY PCR (test code = 92391-2) ENTEROTOXIGENIC E. COLI Not detected Not detected (ETEC) LT/ST BY PCR (test code = 45059-6) SHIGA-LIKE Not detected Not detected TOXIN-PRODUCING E. COLI (STEC) STX1/STX2 (test code = 69958-4) E. COLI O157 (PCR) (test code = 49221-2) SHIGELLA/ENTEROINVASIVE Not detected Not detected E. COLI (EIEC) BY PCR (test code = 82432-1) CRYPTOSPORIDIUM (PCR) Not detected Not detected (test code = 13514-3) CYCLOSPORA CAYETANENSIS Not detected Not detected (PCR) (test code = 84502-8) ENTAMOEBA HISTOLYTICA Not detected Not detected (PCR) (test code = 58110-7) GIARDIA LAMBLIA (PCR) Not detected Not detected (test code = 90844-0) ADENOVIRUS F 40/41 (PCR) Not detected Not detected (test code = 50591-0) ASTROVIRUS (PCR) (test Not detected Not detected code = 36366-8) NOROVIRUS GI/GII (PCR) Not detected Not detected (test code = 37628-7) ROTAVIRUS A (PCR) (test Not detected Not detected code = 84274-7) SAPOVIRUS (I, II, IV, V) Not detected Not detected BY PCR (test code = 96412-4) VIBRIO Not detected Not detected (PARAHAEMOLYTICUS, VULNIFICUS) (test code = 97643-7) IDALIA (test code = IDALIA) Other viruses, [...] [facility] using the [employer] Gastrointestinal Panel. It is FDA cleared and has been verified and approved by the [facility] Molecular Diagnostics Laboratory for clinical use. This laboratory is CLIA-certified and [employer] (CAP)-accredited to perform high complexity testing. [facility] PROFILE BY [id number] 08:09:12 Test Item Value Reference Range Interpretation [...] Not detected BY PCR (test code = 7397850) ENTEROPATHOGENIC E. COLI (EPEC) Not detected Not detected BY PCR (test code = 20151222) ENTEROTOXIGENIC E. COLI (ETEC) Not detected Not detected LT/ST BY PCR (test code = 9429476) SHIGA-LIKE TOXIN-PRODUCING E. Not detected Not detected COLI (STEC) STX1/STX2 (test code = 7157819) E. COLI O157 (PCR) (test code = 8585052) SHIGELLA/ENTEROINVASIVE E. COLI Not detected Not detected [...] detected Not detected VULNIFICUS) (test code = 9499338) Other viruses, parasites and bacteria not targeted by this PCR panel cannot be excluded; therefore clinical correlation and follow up of serology, culture results, and other molecular studies is required. The results are not intended to be used as the sole means for clinical diagnosis or patient management decisions. This sample was tested at the [facility] Molecular Diagnostics Laboratory using the [employer] Gastrointestinal Panel. It is FDA cleared and has been verified and approved by the [facility] Molecular Diagnostics Laboratory for clinical use. This laboratory is CLIA-certified and College ofAmerican Pathologists (CAP)-accredited to perform high complexity testing.POCT-GLUCOSE [id number] 08:04:19 Test Item Value Reference Range Interpretation Comments POC-GLUCOSE METER 141 mg/dL 70-110 H : TESTED A T [facility] 6720 (BEAKER) (test code = [place], 1538) 74983: Proctologist/Techni dakota ID = [id number] for CASEY KERNS [id number] 07:09:55 Test Item Value Reference Range Interpretation Comments MAGNESIUM (BEAKER) (test code = 1.6 mg/dL 1.6-2.6 627) Proctologist ID - DBCOMPREHENSIVE METABOLIC [id number] 07:09:54 Test Item Value Reference Range Interpretation [...] S NOT APPLICABLE FOR DIALYSIS PATIEN TS. Proctologist ID - [id number] 06:53:54 Test Item Value Reference Range Interpretation Comments FERRITIN (BEAKER) (test code = 1616.89 ng/mL 5.00-275.00 H 361) Proctologist ID - SHREE WCBC W/PLT COUNT & AUTO [id number] 06:20:10 Test Item Value Reference Range Interpretation [...] PERCENT (BEAKER) (test code = 2801) POCT-GLUCOSE [id number] 22:18:47 Test Item Value Reference Range Interpretation Comments POC-GLUCOSE METER 255 mg/dL 70-110 H : TESTED A T [facility] (BEAKER) (test code = [facility], 153) 68375: Proctologist/Techni dakota ID = [id number] for Cherry Morrissey POCT-GLUCOSE [id number] 17:41:27 Test Item Value Reference Range Interpretation Comments POC-GLUCOSE METER 160 mg/dL 70-110 H : TESTED A T [facility] (BEAKER) (test code = [facility], 1538) 88873: Proctologist/Techni dakota ID = [id number] for MA RTINEZ, MASON POCT-GLUCOSE [id number] 11:47:30 Test Item Value Reference Range Interpretation Comments POC-GLUCOSE METER 126 mg/dL 70-110 H : TESTED A T [facility] (BEAKER) (test code = [facility], 153) 43252: Proctologist/Techni dakota ID = [id number] for MA RTINEZ, MASON [id number] 11:09:58 Test Item Value Reference Range Interpretation Comments FERRITIN (BEAKER) (test code = 1216.61 ng/mL 5.00-275.00 H 361) Proctologist ID Cherelle AVILEZ WBLOOD [id number] 10:00:55 Test Item Value Reference Range Interpretation Comments CULTURE (BEAKER) (test No growth in 5 days code = 1095) The specimen volume collected for this blood culture was below the optimum (10 mL per bottle or 20 mL total). Use of lower volumes may adversely affect recovery and/or detection times of some organisms.CBC W/PLT COUNT & AUTO [id number] 07:57:54 Test Item Value Reference Range Interpretation [...] (BEAKER) (test code = 2801) COMPREHENSIVE METABOLIC [id number] 07:37:26 Test Item Value Reference Range Interpretation [...] U/L 6-55 (test code = 347) EGFR (BECAMILO) (test 186 ESTIMATE D GFR IS code = 1092) mL/min/1.73 sq NOT ACCURA TE m CREATININE CLEARANCE IN PREDICTING GLOMERULAR FILTRATION RATE . ESTIMATED GFR I S NOT APPLICABLE FOR DIALYSIS PATIEN TS. Proctologist ID - [id number] 07:37:26 Test Item Value Reference Range Interpretation Comments MAGNESIUM (GENEVA) (test code = 1.5 mg/dL 1.6-2.6 L 627) Proctologist ID - DBClostridium difficile GDH [id number] 23:10:55 Test Item Value Reference Range Interpretation Comments C. Difficle Toxin Negative Negative (test code = 1280071860) C. Difficile GDH Positive Negative A C. difficil e Antigen (test code = present but toxin 1186747085) not detected. Indicates colonization wi th non-toxigenic [...] [facility] prior to clinical use. Lab Interpretation Abnormal (test code = 76459-1) [facility] Center[facility]ost[facility] difficile [facility] [id number] 23:10:55 Test Item Value Reference Range Interpretation Comments C. Difficle Toxin Negative Negative (test code = 9703326895) C. Difficile GDH Positive Negative A C. difficil e Antigen (test code = present but toxin 8319202765) not detected. Indicates colonization wi th non-toxigenic [...] [facility] prior to clinical use. Lab Interpretation Abnormal (test code = 67985-1) [facility] Center[facility]ostridium difficile [facility]DH [id number] 23:10:55 Test Item Value Reference Range Interpretation Comments C. Difficle Toxin Negative Negative (test code = 2140253206) C. Difficile GDH Positive Negative A C. difficil e Antigen (test code = present but toxin 5758405240) not detected. Indicates colonization wi th non-toxigenic [...] [facility] prior to clinical use. Lab Interpretation Abnormal (test code = 83700-2) [facility] Center[facility]. DIFFICILE GDH [id number] 23:10:55 Test Item Value Reference Range Interpretation Comments CDT TOXIN (test code Negative Negative = 5455602561) CDT GDH ANTIGEN Positive Negative A C. difficile present but (test code = toxin not detec hernandez. 1927118022) Indicates colon ization with non-toxige luis antonio [...] was done by the [facility] MicrobiologyLab prior to clinical use.POCT-GLUCOSE [id number] 21:40:07 Test Item Value Reference Range Interpretation Comments POC-GLUCOSE METER 144 mg/dL 70-110 H : TESTED A T [facility] 6720 (LEOCAMILO) (test code = [place], 1538) 82455: Proctologist/Techni dakota ID = [id number] for SA RICH BAE POCT-GLUCOSE [id number] 19:13:38 Test Item Value Reference Range Interpretation Comments POC-GLUCOSE METER 71 mg/dL 70-110 : TESTED A T [facility] (BEAKER) (test code = [facility], 1538) 71628: Proctologist/Techni dakota ID = [id number] for MASON URIOSTEGUI POCT-GLUCOSE [id number] 17:28:46 Test Item Value Reference Range Interpretation Comments POC-GLUCOSE METER 156 mg/dL 70-110 H : TESTED A T [facility] (BEAKER) (test code = [place] [facility], 1538) 59443: Proctologist/Techni dakota ID = [id number] for MASON LINK [id number] 17:03:09 Test Item Value Reference Range Interpretation Comments MAGNESIUM (BEAKER) (test code = 1.3 mg/dL 1.6-2.6 L 627) Proctologist ID - ADMINBASIC METABOLIC [id number] 17:03:08 Test Item Value Reference Range Interpretation [...] S NOT APPLICABLE FOR DIALYSIS PATIEN TS. Proctologist ID - ADMINVenous doppler leg, [id number] 16:49:56Ejection FractionSLEH ECHO HEARTLAB MKCKESSON [facility], [id number] 16:49:56Ejection FractionSLEH ECHO HEARTLAB MKCKESSON [facility] do[facility] leg, [id number] 16:49:56Ejection FractionSLEH ECHO HEARTLAB MKCKESSON [facility]Ven[facility], [id number] 16:49:56Ejection FractionSLEH ECHO HEARTLAB MKCKESSON [facility] HospitalVen[facility], left 2021-09-15 16:49:56Ejection FractionSLEH ECHO HEARTLAB MKCKESSON [facility] HospitalVenous doppler leg, [id number] 16:49:56Ejection FractionSLEH ECHO HEARTLAB MKCKST. LAWRENCE [facility]ENTERON [facility] HospitalBLOOD [id number] 12:01:39 Test Item Value Reference Range Interpretation Comments CULTURE (BEAKER) (test No growth in 5 days code = 1095) POCT-GLUCOSE [id number] 11:07:13 Test Item Value Reference Range Interpretation Comments POC-GLUCOSE METER 173 mg/dL 70-110 H : TESTED A T [facility] (BEAKER) (test code = [place], 1538) 38012: Proctologist/Techni dakota ID = [id number] for MASON LINK [id number] 08:10:09 Test Item Value Reference Range Interpretation Comments MAGNESIUM (BEAKER) (test code = 1.3 mg/dL 1.6-2.6 L 627) Proctologist ID - DBCOMPREHENSIVE METABOLIC [id number] 08:10:08 Test Item Value Reference Range Interpretation [...] S NOT APPLICABLE FOR DIALYSIS PATIEN TS. Proctologist ID - DBCBC W/PLT COUNT & AUTO [id number] 07:40:05 Test Item Value Reference Range Interpretation [...] H PERCENT (BEAKER) (test code = 2801) [id number] 06:53:41 Test Item Value Reference Range Interpretation Comments FERRITIN (BEAKER) (test code = 1099.45 ng/mL 5.00-275.00 H 361) Proctologist ID - SHREE WPOCT-GLUCOSE [id number] 21:23:35 Test Item Value Reference Range Interpretation Comments POC-GLUCOSE METER 196 mg/dL 70-110 H : TESTED A T [facility] (BEAKER) (test code = [facility] [place] [facility], 1538) 90047: Proctologist/Techni dakota ID = [id number] for Cherry Morrissey POCT-GLUCOSE [id number] 18:12:17 Test Item Value Reference Range Interpretation Comments POC-GLUCOSE METER 240 mg/dL 70-110 H : TESTED A T [facility] 6720 (BEAKER) (test code [facility], = 1538) 07477: Proctologist/Techni dakota ID = [id number] for SD GALLO [id number] 16:01:42 Test Item Value Reference Range Interpretation Comments FERRITIN (BEAKER) (test code = 1526.03 ng/mL 5.00-275.00 H 361) Proctologist ID - DBHEPATIC FUNCTION [id number] 14:17:51 Test Item Value Reference Range Interpretation [...] (test code = 45 U/L 6-55 347) Proctologist ID - BSPOCT-GLUCOSE [id number] 12:52:27 Test Item Value Reference Range Interpretation Comments POC-GLUCOSE METER 165 mg/dL 70-110 H : TESTED A T [facility] 6720 (BEAKER) (test code [facility], = 1538) 59964: Proctologist/Techni dakota ID = [id number] for SD GALLO BASIC METABOLIC [id number] 12:24:38 Test Item Value Reference Range Interpretation [...] S NOT APPLICABLE FOR DIALYSIS PATIEN TS. Proctologist ID - BSOperator ID - [id number] 12:24:33 Test Item Value Reference Range Interpretation Comments MAGNESIUM (BECAMILO) (test code = 1.3 mg/dL 1.6-2.6 L 627) Proctologist ID - BSOperator ID - BSPOCT-GLUCOSE [id number] 08:43:31 Test Item Value Reference Range Interpretation Comments POC-GLUCOSE METER 83 mg/dL 70-110 : TESTED A T [facility] 67[facility] (GENEVA) (test code = [facility], 153) 92307: Proctologist/Techni dakota ID = [id number] for ROD GALLOY POCT-GLUCOSE [id number] 22:05:41 Test Item Value Reference Range Interpretation Comments POC-GLUCOSE METER 190 mg/dL 70-110 H : TESTED A T [facility] 6720 (BEAKER) (test code = [facility], 1538) 31967: Proctologist/Techni dakota ID = [id number] for SA RICH, ABE POCT-GLUCOSE [id number] 16:33:29 Test Item Value Reference Range Interpretation Comments POC-GLUCOSE METER 221 mg/dL 70-110 H : TESTED A T [facility] 6720 (Unata) (test code = [facility], 1538) 41598: Proctologist/Techni dakota ID = [id number] for Co ok, Susanna POCT-GLUCOSE [id number] 12:08:57 Test Item Value Reference Range Interpretation Comments POC-GLUCOSE METER 127 mg/dL 70-110 H : TESTED A T [facility] 6720 (BEAKER) (test code = [facility], 153) 23643: Proctologist/Techni dakota ID = [id number] for Co ok, Susanna POCT-GLUCOSE [id number] 09:48:13 Test Item Value Reference Range Interpretation Comments POC-GLUCOSE METER 99 mg/dL 70-110 : TESTED A T [facility] 6720 (BEAKER) (test code = [place], 1538) 39554: Proctologist/Techni dakota ID = [id number] for LALY LUCAS HEMOGLOBIN [id number] 09:05:11 Test Item Value Reference Range Interpretation Comments HEMOGLOBIN A1C 6.1 % See_Comment H [Automated m essage] ELECTROPHORESIS (BEAKER) The system which (test code = 3811) generated this result transmitted ref erence range: <=5.6%. The reference range was not used to int erpret this result as normal/abnormal . "The A1c is measured using a [facility]-certified method. HbA1c value equal to or greater than 6.5% as thediagnosis cutoff for diabetes. An HbA1c value of 5.7- 6.4% indicates increased risk for diabetes (prediabetes)."Proctologist ID - ADM COMPREHENSIVE METABOLIC [id number] 06:09:47 Test Item Value Reference Range Interpretation [...] S NOT APPLICABLE FOR DIALYSIS PATIEN TS. Proctologist ID - [id number] 05:58:32 Test Item Value Reference Range Interpretation Comments MAGNESIUM (BEAKER) (test code = 1.3 mg/dL 1.6-2.6 L 627) Proctologist ID - [id number] 05:58:32 Test Item Value Reference Range Interpretation Comments PHOSPHORUS (BEAKER) (test code = 2.8 mg/dL 2.3-4.7 604) Proctologist ID - BSCBC W/PLT COUNT & AUTO [id number] 05:24:08 Test Item Value Reference Range Interpretation [...] PERCENT (BEAKER) (test code = 2801) POCT-GLUCOSE [id number] 21:20:25 Test Item Value Reference Range Interpretation Comments POC-GLUCOSE METER 186 mg/dL 70-110 H : TESTED A T [facility] 6720 (BEAKER) (test code = [place], 1538) 10737: Proctologist/Techni dakota ID = [id number] for JUAN JOSÉ GIRON [id number] 18:54:47 Test Item Value Reference Range Interpretation Comments FERRITIN (BEAKER) (test code = 1911.44 ng/mL 5.00-275.00 H 361) Proctologist ID - BSCOMPREHENSIVE METABOLIC [id number] 18:12:55 Test Item Value Reference Range Interpretation [...] S NOT APPLICABLE FOR DIALYSIS PATIEN TS. Proctologist ID - [id number] 18:12:55 Test Item Value Reference Range Interpretation Comments MAGNESIUM (BEAKER) (test code = 1.4 mg/dL 1.6-2.6 L 627) Proctologist ID - [id number] 18:12:55 Test Item Value Reference Range Interpretation Comments PHOSPHORUS (BEAKER) (test code = 3.0 mg/dL 2.3-4.7 604) Proctologist ID - BSCOMPLEMENT COMPONENT [id number] 18:09:15 Test Item Value Reference Range Interpretation Comments C4 COMPLEMENT (BEAKER) (test code = 4 mg/dL 15-57 L 394) Proctologist ID - BSCOMPLEMENT COMPONENT [id number] 18:09:15 Test Item Value Reference Range Interpretation Comments C3 COMPLEMENT (BEAKER) (test code = 31 mg/dL 82-193 L 393) Proctologist ID - BSCBC W/PLT COUNT & AUTO [id number] 17:46:55 Test Item Value Reference Range Interpretation [...] PERCENT (BEAKER) (test code = 2801) POCT-GLUCOSE [id number] 17:32:52 Test Item Value Reference Range Interpretation Comments POC-GLUCOSE METER 216 mg/dL 70-110 H : TESTED Daphne Miller [facility] 67[address] ([place]) (test code = [place], 1538) [address]: Proctologist/Techni dakota ID = [id number] for Kevin Smith RAD, SHOULDER, COMPLETE (MIN 2 VIEWS), [id number] 14:45:00Reason for exam:- >long chain quiller tender steroid use, eval AVN [facility] : 2000 Sex: MFINAL REPORT CLINICAL HISTORY: senior care steroid use, 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 There is no fracture or dislocation. Signed: Darcie Williamson Verified Date/Time: 09/12/2021 14:45:48 Reading Location: [facility] Radiology Reading Room RAD, SHOULDER, COMPLETE (MIN 2 VIEWS), [id number] 14:45:00Reason for exam:->long chain quiller tender steroid use, eval [facility] : 2000 Sex: MFINAL REPORT CLINICAL HISTORY: senior care steroid use, 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 There is no fracture or dislocation. Signed: Darcie Williamson Verified Date/Time: 09/12/2021 14:45:48 Reading Location: [facility] Radiology Reading Room RAD, HIPS, 2 VIEWS, [id number] 14:29:00Reason for exam:->long chain quiller tender steroid use, eval AVN [facility] : 2000 Sex: MFINAL REPORT CLINICAL HISTORY: senior care steroid use, eval AVN TECHNIQUE: 2 views of the bilateral hips COMPARISON: None IMPRESSION: There is bilateral hip joint space narrowing. Subtle sclerosis and flattening of the left femoral head is suspected, possibly representing avascular necrosis given the clinical history. The right femoral head contour appears preserved. Signed: Darcie Wliliamson Verified Date/Time: 09/12/2021 14:29:16 Reading Location: [facility] Radiology Reading Room POCT-GLUCOSE [id number] 11:50:18 Test Item Value Reference Range Interpretation Comments POC-GLUCOSE METER 129 mg/dL 70-110 H : TESTED A Bryan [facility] 67[address] ([place]) (test code = [place], 1538) [address]: Proctologist/Techni dakota ID = [id number] for Kevin Smith, HAND, 3 VIEWS, [id number] 11:47:00Reason for exam:->rheumatoid arthritisG[facility] : 2000 Sex: MFINAL REPORT [...] MDReport Verified Date/Time: 09/12/2021 11:47:37 Reading Location: [facility] Radiology Reading Room Electronically signed by: DARCIE WILLIAMSON M.D. on 022 11:47 AMRAD, HAND, 3 VIEWS, [id number] 11:47:00Reason for exam:- >rheumatoid arthritis [facility] : 2000 Sex: MFINAL REPORT [...] No discrete erosions are seen. Signed: Darcie Williamsoneport Verified Date/Time: 09/12/2021 11:47:37 Reading Location: [facility] Radiology Reading Room Electronically signed by: DARCIE WILLIAMSON M.D. on 2021 11:47 AMPOCT-GLUCOSE [id number] 10:21:03 Test Item Value Reference Range Interpretation Comments POC-GLUCOSE METER 88 mg/dL 70-110 : TESTED A [facility] [address] ([place]) (test code = [place] [facility], 1538) 777[address]: Proctologist/Techni dakota ID = [id number] for Destiny ie, Kevin PROTEIN, RANDOM [id number] 06:25:49 Test Item Value Reference Range Interpretation Comments PROTEIN, URINE (BEAKER) (test code 177 mg/dL 0-14 H = 1569) Proctologist ID - DBCREATININE, RANDOM [id number] 06:25:48 Test Item Value Reference Range Interpretation Comments CREATININE URINE (BEAKER) (test 106.5 mg/dL code = 375) Reference Range: No NormalsOperator ID - DBPOCT-GLUCOSE [id number] 22:19:10 Test Item Value Reference Range Interpretation Comments POC-GLUCOSE METER 219 mg/dL 70-110 H : TESTED A T [facility] 6720 (BEAKER) (test code = [place] [facility], 1538) [address]: Proctologist/Techni dakota ID = [id number] for Cherry Morrissey POCT-GLUCOSE [id number] 20:21:14 Test Item Value Reference Range Interpretation Comments POC-GLUCOSE METER 257 mg/dL 70-110 H : [facility]ED [facility] (test code = [place] [facility], 1538) [address]: Proctologist/Techni dakota ID = [id number] for Ng Deborah de la rosa CT, [id number] 16:58:00Unlisted Reason for Exam - Click Yes and Enter Reason Below->Noeval prior pancreatitis for further necrosis or abscess, worsening leukocytosis and tachycardiaIs this for enterography?->NoWill this procedure require oral contrast?->No [facility] : 2000 Sex: MFINAL REPORT [...] increased in size.Liver: Severe and diffuse hepatic vladimir atosis.Gallbladder and bile ducts: Gallbladder sludge and otherwise [...] and descending colonBladder: Unremarkable.Reproductive organs: Unremarkable.Lymph nodes: Unremarkable.Peritoneumand retroperitoneum: Moderate volume ascites. Mesenteric edema. Peripancreatic [...] third spacing of fluid. 3.Partial bilateral lower lob e atelectasis, superimposed pneumonia not excluded. 4.Pancreatic edema has increased from prior exam. 5.Other unchanged findings as above including severe hepatic steatosis Signed: [facility] Verified Date/Time: 09/11/2021 16:58:30 Electronically signed by: FELICITY NOVAK MD on 204:58 PM POCT-GLUCOSE [id number] 11:46:33 Test Item Value Reference Range Interpretation Comments POC-GLUCOSE METER 277 mg/dL 70-110 H : TESTED A T [facility] 6720 (BEAKER) (test code = [place] [facility], 1538) 50782: Proctologist/Techni dakota ID = [id number] for JO MILLER COMPREHENSIVE METABOLIC [id number] 10:25:23 Test Item Value Reference Range Interpretation [...] S NOT APPLICABLE FOR DIALYSIS PATIEN TS. Proctologist ID - [id number] 10:13:10 Test Item Value Reference Range Interpretation Comments MAGNESIUM (BEAKER) (test code = 1.9 mg/dL 1.6-2.6 627) Proctologist ID - [id number] 10:13:10 Test Item Value Reference Range Interpretation Comments PHOSPHORUS (BEAKER) (test code = 2.5 mg/dL 2.3-4.7 604) Proctologist ID - DBCBC W/PLT COUNT & AUTO [id number] 10:02:45 Test Item Value Reference Range Interpretation [...] PERCENT (BEAKER) (test code = 2801) POCT-GLUCOSE [id number] 07:31:40 Test Item Value Reference Range Interpretation Comments POC-GLUCOSE METER 310 mg/dL 70-110 H : TESTED A T [facility] 6720 (BEAKER) (test code = [place], 1538) 360[address]: Proctologist/Techni dakota ID = [id number] for JO MILLER BLOOD [id number] 03:00:54 Test Item Value Reference Range Interpretation Comments CULTURE (BEAKER) (test No growth in 5 days code = 1095) BLOOD [id number] 03:00:53 Test Item Value Reference Range Interpretation Comments CULTURE (BEAKER) (test No growth in 5 days code = 1095) POCT-GLUCOSE [id number] 21:11:52 Test Item Value Reference Range Interpretation Comments POC-GLUCOSE METER 286 mg/dL 70-110 H : TESTED A T [facility] 6720 (BEAKER) (test code [facility] [facility], = 1538) 06252: Proctologist/Techni dakota ID = [id number] for BERNY SMYTH [id number] 12:52:50 Test Item Value Reference Range Interpretation Comments PROCALCITONIN (BEAKER) (test code 5.84 ng/mL <0.05 H = 3036) SEPSIS RISK (ng/mL)Low: 0.05-0.50Intermediate: 0.51-2.00High: >=2.01APTT 2021-09-10 12:05:26 Test Item Value Reference Range Interpretation Comments PARTIAL THROMBOPLASTIN TIME 27.5 seconds 22.5-36.0 (BEAKER) (test code = 760) PROTHROMBIN [id number] 12:04:41 Test Item Value Reference Range Interpretation Comments PROTIME (BEAKER) 16.4 seconds 11.9-14.2 H (test code = 759) INR (BEAKER) (test 1.34 See_Comment [Automat ed message] code = 370) The system [facility] generated this result transmitted ref erence range: <=5.90. The reference range was not used to int erpret this result as normal/abnormal . RECOMMENDED COUMADIN/WARFARIN INR THERAPY RANGESSTANDARD DOSE: 2.0 - 3.0 Includes: PROPHYLAXIS for venous thrombosis, systemic embolization; TREATMENT for venous thrombosis and/or pulmonary embolus.HIGH RISK: Target INR is 2.5-3.5 for patients with mechanical heart valves.LACTIC ACID, [id number] 11:42:21 Test Item Value Reference Range Interpretation Comments LACTATE BLOOD VENOUS 1.13 mmol/L 0.50-2.20 Specime n slightly (2) (BEAKER) (test hemolyzed code = 4212) Proctologist ID - DBRAD, CHEST, 1 VIEW, NON [id number] 09:41:00Reason for exam:- >eval for pnaShould this be performed at the bedside?->Yes [facility] 2000 Sex: [...] MDReport Verified Date/Time: 09/10/2021 09:41:13 Reading Location: [address] Consult Reading Room (CELLAVISION MANUAL DIFF)2021-09-10 [...] CONCENTRATION Adequate (CELLAVISION)(BEAKER) (test code = 3438) Proctologist ID - [id number] ID - Rebecca Elizondo comments: Slide comments: CBC W/PLT COUNT & AUTO [id number] 07:30:14 Test Item Value Reference Range Interpretation [...] (BEAKER) (test code = 413) COMPREHENSIVE METABOLIC [id number] 05:40:15 Test Item Value Reference Range Interpretation [...] S NOT APPLICABLE FOR DIALYSIS PATIEN TS. Proctologist ID - MARIBEL [id number] 05:38:41 Test Item Value Reference Range Interpretation Comments MAGNESIUM (BEAKER) (test code = 1.5 mg/dL 1.6-2.6 L 627) Proctologist ID - MARIBEL [id number] 05:38:41 Test Item Value Reference Range Interpretation Comments PHOSPHORUS (BEAKER) (test code = 1.7 mg/dL 2.3-4.7 L 604) Proctologist ID - MARIBEL LPOCT-GLUCOSE [id number] 21:08:40 Test Item Value Reference Range Interpretation Comments POC-GLUCOSE METER 113 mg/dL 70-110 H : TESTED A T [facility] 6720 (BEAKER) (test code = [facility], 1538) 23028: Proctologist/Techni dkaota ID = [id number] for SOMMER LYNN POCT-GLUCOSE [id number] 16:29:13 Test Item Value Reference Range Interpretation Comments POC-GLUCOSE METER 123 mg/dL 70-110 H : TESTED A T [facility] 6720 (BEAKER) (test code = [facility], 1538) 88589: Proctologist/Techni dakota ID = [id number] for JO MILLER COMPREHENSIVE METABOLIC [id number] 15:30:31 Test Item Value Reference Range Interpretation [...] S NOT APPLICABLE FOR DIALYSIS PATIEN TS. Proctologist ID - ALVINA M2D Echo W/O Doppler(No Doppler)2021-09-09 14:32:05 Test Item Value Reference Range Interpretation Comments Ejection Fraction Est EF is 55-60% (test code = 2574) Radiology Study observation (narrative) (test code = 75034-7) PXN (test code = Sarah Travis PXN) - 09/09/2021 Transthoracic Echocardiography Report (TTE) Demographics Patient Name YAMILE, Date of Study 09/09/2021 [place] Gender Male Visit Number [id number] Race Unknown Room Number C622 Number Date of 2000 Referring Babita Cano Physician Age 21 year(s) Cutter Inspector Sandy Wilde, [facility] Interpreting Sarah Travis MD [...] CO: 6.81 l/min LVOT CI: 3.35 l/min/m^2 [facility] Echo W/O Doppler(No Doppler)2021-09-09 14:32:05 Test Item Value Reference Range Interpretation Comments Ejection Fraction Est EF is 55-60% (test code = 2574) Radiology Study observation (narrative) (test code = 75982-5) JONNIE (test code = Sarah Travis PXN) - 09/09/2021 Transthoracic Echocardiography Report (TTE) Demographics Patient Name YAMILE, Date of Study 09/09/2021 [place] Gender Male Visit Number [id number] Race Unknown Room Number C622 Number Date of 2000 Referring Babita Cano Physician Age 21 year(s) Cutter Inspector Sandy Wilde, [facility] Interpreting Sarah Travis MD [...] CO: 6.81 l/min LVOT CI: 3.35 l/min/m^2 [facility] Echo W/O Doppler(No Doppler)2021-09-09 14:32:05 Test Item Value Reference Range Interpretation Comments Ejection Fraction Est EF is 55-60% (test code = 2574) Radiology Study observation (narrative) (test code = 73858-9) PXN (test code = Sarah Travis PXN) - 09/09/2021 Transthoracic Echocardiography Report (TTE) Demographics Patient Name YAMILE, Date of Study 09/09/2021 [place] Gender Male Visit Number [id number] Race Unknown Room Number C622 Number Date of 2000 Referring Babtia Cano Physician Age 21 year(s) Cutter Inspector Sandy Wilde, [facility] Interpreting Sarah Travis MD [...] CO: 6.81 l/min LVOT CI: 3.35 l/min/m^2 [facility] Echo W/O Doppler(No Doppler)2021-09-09 14:32:05 Test Item Value Reference Range Interpretation Comments Ejection Fraction Est EF is 55-60% (test code = 2574) Radiology Study observation (narrative) (test code = 08942-2) PXN (test code = Sarah Travis PXN) - 09/09/2021 Transthoracic Echocardiography Report (TTE) Demographics Patient Name YAMILE, Date of Study 09/09/2021 [place] Gender Male Visit Number [id number] Race Unknown Room Number C622 Number Date of 2000 Referring Babita Cano Physician Age 21 year(s) Cutter Inspector XAVIER Elizabeth Interpreting Sarah Travis MD Physician Procedure Type [...] CO: 6.81 l/min LVOT CI: 3.35 l/min/m^2 [facility] Echo W/O Doppler(No Doppler)2021-09-09 14:32:05 Test Item Value Reference Range Interpretation Comments Ejection Fraction Est EF is 55-60% (test code = 2574) Radiology Study observation (narrative) (test code = 03029-5) JONNIE (test code = Sarah Travis PXN) MD - 09/09/2021 Transthoracic Echocardiography Report (TTE) Demographics Patient Name YAMILE, Date of Study 09/09/2021 [place] Gender Male Visit Number [id number] Race Unknown Room Number C622 Number Date of 2000 Referring Babita Cano Physician Age 21 year(s) Cutter Inspector Sandy Wilde, [facility] Interpreting Sarah Travis MD [...] CO: 6.81 l/min LVOT CI: 3.35 l/min/m^2 [facility] Echo W/O Doppler(No Doppler)2021-09-09 14:32:05 Test Item Value Reference Range Interpretation Comments Ejection Fraction Est EF is 55-60% (test code = 2574) Radiology Study observation (narrative) (test code = 81882-4) PXN (test code = Sarah Travis PXN) - 09/09/2021 Transthoracic Echocardiography Report (TTE) Demographics Patient Name YAMILE, Date of Study 09/09/2021 [place] Gender Male Visit Number [id number] Race Unknown Room Number C622 Number Date of 2000 Referring Babita Cano Physician Age 21 year(s) Cutter Inspector Sandy Wilde, [facility] Interpreting Sarah Travis MD [...] CO: 6.81 l/min LVOT CI: 3.35 l/min/m^2 [facility] [id number] 11:38:39 Test Item Value Reference Range Interpretation Comments POC-GLUCOSE METER 137 mg/dL 70-110 H : TESTED A T [facility] 6720 (BEAKER) (test code = [facility], 1538) 47084: Proctologist/Techni dakota ID = [id number] for JO MILLER POCT-GLUCOSE [id number] 06:55:56 Test Item Value Reference Range Interpretation Comments POC-GLUCOSE METER 151 mg/dL 70-110 H : TESTED A T [facility] 6720 (BEAKER) (test code = [facility], 1538) 36211: Proctologist/Techni dakota ID = [id number] for MA TIFFANIE, VALSA POCT-GLUCOSE [id number] 21:19:46 Test Item Value Reference Range Interpretation Comments POC-GLUCOSE METER 174 mg/dL 70-110 H : TESTED A T [facility] 6720 (BEAKER) (test code = [facility], 1538) 29783: Proctologist/Techni dakota ID = [id number] for CODY MORENO, VALSA POCT-GLUCOSE [id number] 19:52:47 Test Item Value Reference Range Interpretation Comments POC-GLUCOSE METER 173 mg/dL 70-110 H : TESTED A T [facility] 6720 (BEAKER) (test code = [facility], 1538) 72003: Proctologist/Techni dakota ID = [id number] for JENNIFER ARCINIEGA MRSA [id number] 15:07:47 Test Item Value Reference Range Interpretation Comments Result (test code = 6463-4) No MRSA isolated [facility] [id number] 15:07:47 Test Item Value Reference Range Interpretation Comments Result (test code = 6463-4) No MRSA isolated [facility] [id number] 15:07:47 Test Item Value Reference Range Interpretation Comments Result (test code = 6463-4) No MRSA isolated [facility] [id number] 15:07:47 Test Item Value Reference Range Interpretation Comments Result (test code = 6463-4) No MRSA isolated [facility] [id number] 15:07:47 Test Item Value Reference Range Interpretation Comments Result (test code = 6463-4) No MRSA isolated [facility] [id number] 15:07:47 Test Item Value Reference Range Interpretation Comments Result (test code = 6463-4) No MRSA isolated [facility] [id number] 15:07:47 Test Item Value Reference Range Interpretation Comments CULTURE ([facility]) (test code No MRSA isolated = 1095) POCT-GLUCOSE [id number] 11:36:26 Test Item Value Reference Range Interpretation Comments POC-GLUCOSE METER 268 mg/dL 70-110 H : TESTED A T [facility] 6720 ([facility]) (test code = [facility], 1538) 92333: Proctologist/Techni dakota ID = [id number] for JENNIFER ARCINIEGA POCT-GLUCOSE [id number] 09:21:21 Test Item Value Reference Range Interpretation Comments POC-GLUCOSE METER 283 mg/dL 70-110 H : TESTED A T [facility] 6720 ([place]) (test code = [facility], 1538) 02040: Proctologist/Techni dakota ID = [id number] for JENNIFER ARCINIEGA ANTI-MITOCHONDRIAL AB, REFLEX TO [id number] 07:58:16 Test Item Value Reference Range Interpretation Comments SCAN RESULT (test code = 9668602) POCT-GLUCOSE [id number] 05:15:53 Test Item Value Reference Range Interpretation Comments POC-GLUCOSE METER 266 mg/dL 70-110 H : TESTED A T [facility] 6720 ([employer]) (test code = [facility], 1538) 97507: Proctologist/Techni dakota ID = [id number] for KAVITHA ESCOBAR COMPREHENSIVE METABOLIC [id number] 04:59:08 Test Item Value Reference Range Interpretation Comments TOTAL PROTEIN 5.5 gm/dL 6.0-8.3 L (BEAKER) (test code = 770) ALBUMIN (AKER) 2.1 g/dL 3.5-5.0 L (test code = 1145) ALKALINE PHOSPHATASE 76 U/L 40-150 (AKER) (test code = 346) BILIRUBIN TOTAL 0.7 [...] S NOT APPLICABLE FOR DIALYSIS PATIEN TS. Proctologist ID - ALVINA [id number] 04:55:48 Test Item Value Reference Range Interpretation Comments MAGNESIUM (BEAKER) (test code = 1.7 mg/dL 1.6-2.6 627) Proctologist ID - ALVINA [id number] 04:55:48 Test Item Value Reference Range Interpretation Comments PHOSPHORUS (BEAKER) (test code = 1.6 mg/dL 2.3-4.7 L 604) Proctologist ID - ALVINA MCBC W/PLT COUNT & AUTO [id number] 04:52:53 Test Item Value Reference Range Interpretation [...] PERCENT (BEAKER) (test code = 2801) POCT-GLUCOSE [id number] 23:21:41 Test Item Value Reference Range Interpretation Comments POC-GLUCOSE METER 268 mg/dL 70-110 H : TESTED A T [facility] 6720 (BEAKER) (test code = [place], 1538) 32524: Proctologist/Techni dakota ID = [id number] for KAVITHA ESCOBAR POCT-GLUCOSE [id number] 18:55:01 Test Item Value Reference Range Interpretation Comments POC-GLUCOSE METER 240 mg/dL 70-110 H : TESTED A T [facility] 6720 (BEAKER) (test code = [place] [facility], 1538) 39547: Proctologist/Techni dakota ID = [id number] for As Isiah mckeon PERIPHERAL BLOOD SMEAR - PATHOLOGIST [id number] 16:19:01 Test Item Value Reference Range Interpretation [...] MORPHOLOGY No Satellitosis (BEAKER) (test code = 723164) PLT MORPHOLOGY See comment Decreased in number (BEAKER) (test with normal code = 422581) morphology. R are to Occasional larg e forms. [facility]-PATHOLOGIST- Yvan Campoverde MD 6112 (BEAKER) (electronic (test code = signature) 2849) Urinalysis w/Microscopic + Reflex to [id number] 14:42:51 Test Item Value Reference Range Interpretation Comments Color, UA (test code Yellow = 5778-6) Clarity, UA (test Clear code = 5767-9) Specific [place], UA 1.025 1.001-1.035 (test code = 5811-5) pH, UA (test code = 6.0 5.0-8.0 5803-2) Protein, UA (test 100 mg/dL Negative A code = 86427-3) Glucose, UA (test 70 mg/dL Negative A code = 365) Ketones, UA (test 40 mg/dL Negative A code = 2514-8) Bilirubin, UA (test Negative Negative code = 94024-7) Blood, UA (test code Large Negative A = 15007-4) Nitrite, UA (test Negative Negative code = 5802-4) Leukocytes, UA (test Negative Negative code = 5799-2) Urobilinogen, UA 0.2 mg/dL 0.2-1.0 (test code = 27190-7) RBC, UA (test code = 30 See_Comment [Autom ated 29013-3) message] The system which generated this result [...] Bacteria, UA (test None Seen code = 86095-2) Mucus (test code = Few 8247-9) Hyaline Casts, UA 1 See_Comment [Automate d (test code = 97583-6) messag e] The system which generated this [...] Crystals, Urine (test None Seen code = 24020-2) Specimen Source (test code = 2795) IDALIA (test code = IDALIA) Proctologist ID - [auto]Proctologist ID - tech Lab Interpretation Abnormal (test code = 05048-4) [facility]/Microscopic + Reflex to Culture 2021-09-07 14:42:51 Test Item Value Reference Range Interpretation Comments Color, UA (test code Yellow = 5778-6) Clarity, UA (test Clear code = 5767-9) Specific [place], UA 1.025 1.001-1.035 (test code = 5811-5) pH, UA (test code = 6.0 5.0-8.0 5803-2) Protein, UA (test 100 mg/dL Negative A code = 66144-1) Glucose, UA (test 70 mg/dL Negative A code = 365) Ketones, UA (test 40 mg/dL Negative A code = 2514-8) Bilirubin, UA (test Negative Negative code = 47235-1) Blood, UA (test code Large Negative A = 76526-5) Nitrite, UA (test Negative Negative code = 5802-4) Leukocytes, UA (test Negative Negative code = 5799-2) Urobilinogen, UA 0.2 mg/dL 0.2-1.0 (test code = 40099-7) RBC, UA (test code = 30 See_Comment [Autom ated 93431-5) message] The system which generated this result [...] Bacteria, UA (test None Seen code = 18050-1) Mucus (test code = Few 8247-9) Hyaline Casts, UA 1 See_Comment [Automate d (test code = 96532-3) messag e] The system which generated this [...] Crystals, Urine (test None Seen code = 21737-1) Specimen Source (test code = 2795) IDALIA (test code = IDALIA) Proctologist ID - [auto]Proctologist ID - tech Lab Interpretation Abnormal (test code = 95671-9) [facility]/Microscopic + Reflex to Culture 2021-09-07 14:42:51 Test Item Value Reference Range Interpretation Comments Color, UA (test code Yellow = 5778-6) Clarity, UA (test Clear code = 5767-9) Specific [place], UA 1.025 1.001-1.035 (test code = 5811-5) pH, UA (test code = 6.0 5.0-8.0 5803-2) Protein, UA (test 100 mg/dL Negative A code = 20873-1) Glucose, UA (test 70 mg/dL Negative A code = 365) Ketones, UA (test 40 mg/dL Negative A code = 2514-8) Bilirubin, UA (test Negative Negative code = 07798-6) Blood, UA (test code Large Negative A = 58439-6) Nitrite, UA (test Negative Negative code = 5802-4) Leukocytes, UA (test Negative Negative code = 5799-2) Urobilinogen, UA 0.2 mg/dL 0.2-1.0 (test code = 20816-5) RBC, UA (test code = 30 See_Comment [Autom ated 40464-0) message] The system which generated this result [...] Bacteria, UA (test None Seen code = 33772-1) Mucus (test code = Few 8247-9) Hyaline Casts, UA 1 See_Comment [Automate d (test code = 38961-7) messag e] The system which generated this [...] Crystals, Urine (test None Seen code = 89862-7) Specimen Source (test code = 2795) IDALIA (test code = IDALIA) Proctologist ID - [auto]Proctologist ID - tech Lab Interpretation Abnormal (test code = 09675-9) [facility] Center[facility]inal[facility] w/Microscopic + Reflex to Culture 2021-09-07 14:42:51 Test Item Value Reference Range Interpretation Comments Color, UA (test code Yellow = 5778-6) Clarity, UA (test Clear code = 5767-9) Specific [place], UA 1.025 1.001-1.035 (test code = 5811-5) pH, UA (test code = 6.0 5.0-8.0 5803-2) Protein, UA (test 100 mg/dL Negative A code = 60386-6) Glucose, UA (test 70 mg/dL Negative A code = 365) Ketones, UA (test 40 mg/dL Negative A code = 2514-8) Bilirubin, UA (test Negative Negative code = 83574-8) Blood, UA (test code Large Negative A = 04921-3) Nitrite, UA (test Negative Negative code = 5802-4) Leukocytes, UA (test Negative Negative code = 5799-2) Urobilinogen, UA 0.2 mg/dL 0.2-1.0 (test code = 79090-0) RBC, UA (test code = 30 See_Comment [Autom ated 39125-4) message] The system which generated this result [...] Bacteria, UA (test None Seen code = 91861-6) Mucus (test code = Few 8247-9) Hyaline Casts, UA 1 See_Comment [Automate d (test code = 23982-7) messag e] The system which generated this [...] Crystals, Urine (test None Seen code = 90612-5) Specimen Source (test code = 2795) IDALIA (test code = IDALIA) Proctologist ID - [auto]Proctologist ID - tech Lab Interpretation Abnormal (test code = 89369-4) [facility] Reflex [facility] Culture 2021-09-07 14:42:51 Test Item Value Reference Range Interpretation Comments Color, UA (test code Yellow = 5778-6) Clarity, UA (test Clear code = 5767-9) Specific [place], UA 1.025 1.001-1.035 (test code = 5811-5) pH, UA (test code = 6.0 5.0-8.0 5803-2) Protein, UA (test 100 mg/dL Negative A code = 82994-0) Glucose, UA (test 70 mg/dL Negative A code = 365) Ketones, UA (test 40 mg/dL Negative A code = 2514-8) Bilirubin, UA (test Negative Negative code = 01444-4) Blood, UA (test code Large Negative A = 78697-5) Nitrite, UA (test Negative Negative code = 5802-4) Leukocytes, UA (test Negative Negative code = 5799-2) Urobilinogen, UA 0.2 mg/dL 0.2-1.0 (test code = 20978-5) RBC, UA (test code = 30 See_Comment [Autom ated 14887-5) message] The system which generated this result [...] Bacteria, UA (test None Seen code = 80585-6) Mucus (test code = Few 8247-9) Hyaline Casts, UA 1 See_Comment [Automate d (test code = 01036-4) messag e] The system which generated this [...] Crystals, Urine (test None Seen code = 05549-1) Specimen Source (test code = 2795) IDALIA (test code = IDALIA) Proctologist ID - [auto]Proctologist ID - tech Lab Interpretation Abnormal (test code = 46656-7) [facility] Reflex to Culture 2021-09-07 14:42:51 Test Item Value Reference Range Interpretation Comments Color, UA (test code Yellow = 5778-6) Clarity, UA (test Clear code = 5767-9) Specific [place], UA 1.025 1.001-1.035 (test code = 5811-5) pH, UA (test code = 6.0 5.0-8.0 5803-2) Protein, UA (test 100 mg/dL Negative A code = 27733-3) Glucose, UA (test 70 mg/dL Negative A code = 365) Ketones, UA (test 40 mg/dL Negative A code = 2514-8) Bilirubin, UA (test Negative Negative code = 45126-3) Blood, UA (test code Large Negative A = 30252-4) Nitrite, UA (test Negative Negative code = 5802-4) Leukocytes, UA (test Negative Negative code = 5799-2) Urobilinogen, UA 0.2 mg/dL 0.2-1.0 (test code = 34610-0) RBC, UA (test code = 30 See_Comment [Autom ated 58403-5) message] The system which generated this result [...] Bacteria, UA (test None Seen code = 27156-1) Mucus (test code = Few 8247-9) Hyaline Casts, UA 1 See_Comment [Automate d (test code = 57234-5) messag e] The system which generated this [...] Crystals, Urine (test None Seen code = 92684-5) Specimen Source (test code = 2795) IDALIA (test code = IDALIA) Proctologist ID - [auto]Proctologist ID - tech Lab Interpretation Abnormal (test code = 02153-6) [facility] [id number] 14:42:51 Test Item Value Reference Range Interpretation [...] = 1521) SOURCE(BEAKER) (test code = 2795) Proctologist ID - [auto]Proctologist ID - xgxhGBRNHBOTAJUQN1527-15-89 13:45:54 Test Item Value Reference Range Interpretation Comments PROCALCITONIN (BEAKER) (test code 41.89 ng/mL <0.05 HH = 3036) SEPSIS RISK (ng/mL)Low: 0.05-0.50Intermediate: 0.51-2.00High: >=2.01 [id number] 13:10:47 Test Item Value Reference Range Interpretation Comments HAPTOGLOBIN (BEAKER) (test code = 367 mg/dL 14-258 H 366) Proctologist ID - BSOperator ID - BSCOMPREHENSIVE METABOLIC [id number] 12:56:57 Test Item Value Reference Range Interpretation [...] S NOT APPLICABLE FOR DIALYSIS PATIEN TS. Proctologist ID - BSHEPATIC FUNCTION [id number] 12:56:40 Test Item Value Reference Range Interpretation [...] Specimen slightly (test code = 347) hemolyzed Proctologist ID - [id number] 12:56:40 Test Item Value Reference Range Interpretation Comments LIPASE (BEAKER) (test code = 749) 132 U/L 8-78 H Proctologist ID - [id number] 12:56:39 Test Item Value Reference Range Interpretation Comments MAGNESIUM (BEAKER) 1.9 mg/dL 1.6-2.6 Specimen slightly (test code = 627) hemolyzed Proctologist ID - [id number] 12:56:39 Test Item Value Reference Range Interpretation Comments PHOSPHORUS (BEAKER) 2.9 mg/dL 2.3-4.7 Specimen slightly (test code = 604) hemolyzed Proctologist ID - BSVANCOMYCIN LEVEL, [id number] 12:51:35 Test Item Value Reference Range Interpretation Comments VANCOMYCIN TROUGH (BEAKER) (test 14.4 ug/mL 10.0-20.0 code = 522) Proctologist ID - [id number] 12:43:54 Test Item Value Reference Range Interpretation Comments FIBRINOGEN LEVEL (BEAKER) (test 715 mg/dl 225-434 H code = 658) HEMOGLOBIN AND [id number] 12:34:38 Test Item Value Reference Range Interpretation Comments HEMOGLOBIN (BEAKER) (test code = 8.0 GM/DL 13.7-17.5 L 410) HEMATOCRIT (BEAKER) (test code = 26.2 % 40.1-51.0 L 411) Proctologist ID - 6000POCT-GLUCOSE QUFUV0612-78-02 12:12:10 Test Item Value Reference Range Interpretation Comments POC-GLUCOSE METER 152 mg/dL 70-110 H : TESTED A T [facility] 6720 (BEAKER) (test code = [facility] [facility], 1538) [address]: Proctologist/Techni dakota ID = [id number] for Patrick Perez ANTI-DNA [id number] 11:19:56 Test Item Value Reference Range Interpretation Comments ANTI-DNA TITER (BEAKER) (test code = :80 1553) DOUBLE-STRANDED DNA (DSDNA) [id number] 11:19:49 Test Item Value Reference Range Interpretation Comments ANTI-DNA DS (BEAKER) (test code = Positive Negative 1055) ANTI-DNA [id number] 11:19:10 Test Item Value Reference Range Interpretation Comments ANTI-DNA TITER (BEAKER) (test code = :80 1553) DOUBLE-STRANDED DNA (DSDNA) [id number] 11:19:04 Test Item Value Reference Range Interpretation Comments ANTI-DNA DS (BEAKER) (test code = Positive Negative 1055) LACTATE DEHYDROGENASE (LDH)2021-09-07 10:00:12 Test Item Value Reference Range Interpretation Comments LACTATE DEHYDROGENASE (BEAKER) (test 723 U/L 125-220 H code = 635) Proctologist ID - BSBILIRUBIN, [id number] 10:00:11 Test Item Value Reference Range Interpretation Comments BILIRUBIN DIRECT (BEAKER) (test 0.8 mg/dL 0.1-0.5 H code = 706) Proctologist ID - BSCBC W/PLT COUNT & AUTO [id number] 08:25:03 Test Item Value Reference Range Interpretation [...] CONCENTRATION Decreased (CELLAVISION)(BEAKER) (test code = 3438) Proctologist ID - [id number] ID - Sismelissa comments: Slide comments:B-TYPE NATRIURETIC FACTOR (BNP)2021-09-07 06:31:12 Test Item Value Reference Range Interpretation Comments B-TYPE NATRIURETIC PEPTIDE (BEAKER) 269 pg/mL 0-100 H (test code = 700) Proctologist ID - BSLACTIC ACID, [id number] 06:10:21 Test Item Value Reference Range Interpretation Comments LACTATE BLOOD VENOUS (2) (BEAKER) 0.76 mmol/L 0.50-2.20 (test code = 2872) Proctologist ID - EKTLLD-[id number] 03:08:41 Test Item Value Reference Range Interpretation Comments POC-Glucose (test code = 153 mg/dL 70-110 H : T ESTED AT [facility] 1855) [address] [facility], [address]: Proctologist/Techni dakota ID = [id number] for URCIA, FAMELA Lab Interpretation (test Abnormal code = 52495-1) [facility]-[id number] 03:08:41 Test Item Value Reference Range Interpretation Comments POC-Hematocrit (test code 21 % 40-50 L : = 1857) Proctologist/Techni dakota ID = [id number] for URCIA, FAMELA Lab Interpretation (test Abnormal code = 28080-7) [id number] 03:08:41 Test Item Value Reference Range Interpretation Comments POC-Glucose (test code = 153 mg/dL 70-110 H : T ESTED AT [facility] 1855) [address] [facility], [address] 30: Proctologist/Techni dakota ID = [id number] for URCIA, FAMELA Lab Interpretation (test Abnormal code = 82056-0) [facility]-[id number] 03:08:41 Test Item Value Reference Range Interpretation Comments POC-Hematocrit (test code 21 % 40-50 L : = 1857) Proctologist/Techni dakota ID = [id number] for URCIA, FAMELA Lab Interpretation (test Abnormal code = 60687-0) [facility]-[id number] 03:08:41 Test Item Value Reference Range Interpretation Comments POC-Glucose (test code = 153 mg/dL 70-110 H : T ESTED AT [facility] 1855) [address] [place] [address], 770 30: Proctologist/Techni dakota ID = [id number] for URCIA, FAMELA Lab Interpretation (test Abnormal code = 90774-0) [facility]-[id number] 03:08:41 Test Item Value Reference Range Interpretation Comments POC-Hematocrit (test code 21 % 40-50 L : = 1857) Proctologist/Techni dakota ID = [id number] for URCIA, FAMELA Lab Interpretation (test Abnormal code = 50362-0) [facility]-[id number] 03:08:41 Test Item Value Reference Range Interpretation Comments POC-Glucose (test code = 153 mg/dL 70-110 H : T ESTED AT [facility] 1855) [address] [place] [address], 770 30: Proctologist/Techni dakota ID = [id number] for URCIA, FAMELA Lab Interpretation (test Abnormal code = 64414-4) [facility]-[id number] 03:08:41 Test Item Value Reference Range Interpretation Comments POC-Hematocrit (test code 21 % 40-50 L : = 1857) Proctologist/Techni dakota ID = [id number] for URCIA, FAMELA Lab Interpretation (test Abnormal code = 03694-4) [facility]-[id number] 03:08:41 Test Item Value Reference Range Interpretation Comments POC-Glucose (test code = 153 mg/dL 70-110 H : T ESTED AT [facility] 1855) [address] [place] [address], 770 30: Proctologist/Techni dakota ID = [id number] for URCIA, FAMELA Lab Interpretation (test Abnormal code = 96244-4) [facility]-[id number] 03:08:41 Test Item Value Reference Range Interpretation Comments POC-Hematocrit (test code 21 % 40-50 L : = 1857) Proctologist/Techni dakota ID = [id number] for URCIA, FAMELA Lab Interpretation (test Abnormal code = 11581-9) [facility]-[id number] 03:08:41 Test Item Value Reference Range Interpretation Comments POC-Glucose (test code = 153 mg/dL 70-110 H : T ESTED AT [facility] 1855) [address] [facility], [address] 30: Proctologist/Techni dakota ID = [id number] for URCIA, FAMELA Lab Interpretation (test Abnormal code = 77750-2) [facility] CenterBnfsyuNAYQ-[id number] 03:08:41 Test Item Value Reference Range Interpretation Comments POC-Hematocrit (test code 21 % 40-50 L : = 1857) Proctologist/Techni dakota ID = [id number] for URCIA, FAMELA Lab Interpretation (test Abnormal code = 38451-8) [facility] CenterLpugonGAYJ-[id number] 03:08:41 Test Item Value Reference Range Interpretation Comments POC-HEMATOCRIT 21 % 40-50 L : Proctologist/Te chnician ID = (BEAKER) (test code = 073319 for URCIA, FAMELA 1857) VOCG-[id number] 03:08:41 Test Item Value Reference Range Interpretation Comments POC-GLUCOSE (BEAKER) 153 mg/dL 70-110 H : TESTE D AT [facility] 6720 (test code = 1855) [facility], [address]: Proctologist/Techni dakota ID = [id number] for URCI A, FAMELA NDD-[id number] 03:08:40 Test Item Value Reference Range Interpretation Comments POC-Potassium (test code 3.8 meq/L 3.6-5.5 : T ESTED AT [facility] = 1540) [address] [facility], [address] 30: Proctologist/Techni dakota ID = [id number] for URCIA, FAMELA Lab Interpretation (test Normal code = 19016-2) [facility] CenterZrbxrkNMZM-[id number] 03:08:40 Test Item Value Reference Range Interpretation Comments POC-Hemoglobin (test code 7.1 g/dL 13.0-16.8 L : TESTED AT [facility] = 1856) [address] [place] [address], 770 30: Proctologist/Techni dakota ID = [id number] for URCIA, FAMELA Lab Interpretation (test Abnormal code = 95893-9) [facility]-Fjdzzeaot5168-28-47 03:08:40 Test Item Value Reference Range Interpretation Comments POC-Potassium (test code 3.8 meq/L 3.6-5.5 : T ESTED AT [facility] = 1540) [address] [place] [address], [facility] 30: Proctologist/Techni dakota ID = [id number] for URCIA, FAMELA Lab Interpretation (test Normal code = 43338-4) [facility]-[id number] 03:08:40 Test Item Value Reference Range Interpretation Comments POC-Hemoglobin (test code 7.1 g/dL 13.0-16.8 L : TESTED AT [facility] = 1856) [address] [place] [address], [facility] 30: Proctologist/Techni dakota ID = [id number] for URCIA, FAMELA Lab Interpretation (test Abnormal code = 43008-1) [facility]-Ezalgihgc2434-09-94 03:08:40 Test Item Value Reference Range Interpretation Comments POC-Potassium (test code 3.8 meq/L 3.6-5.5 : T ESTED AT [facility] = 1540) [address] [place] [address], [facility] 30: Proctologist/Techni dakota ID = [id number] for URCIA, FAMELA Lab Interpretation (test Normal code = 94627-3) [facility]-[id number] 03:08:40 Test Item Value Reference Range Interpretation Comments POC-Hemoglobin (test code 7.1 g/dL 13.0-16.8 L : TESTED AT [facility] = 1856) [address] [place] [address], [facility] 30: Proctologist/Techni dakota ID = [id number] for URCIA, FAMELA Lab Interpretation (test Abnormal code = 66534-2) [facility]-Daojdkxyt7508-11-41 03:08:40 Test Item Value Reference Range Interpretation Comments POC-Potassium (test code 3.8 meq/L 3.6-5.5 : T ESTED AT [facility] = 1540) [address] [place] [address], 770 30: Proctologist/Techni dakota ID = [id number] for URCIA, FAMELA Lab Interpretation (test Normal code = 68107-6) [facility]-[id number] 03:08:40 Test Item Value Reference Range Interpretation Comments POC-Hemoglobin (test code 7.1 g/dL 13.0-16.8 L : [facility] [address] [place] [address], 770 30: Proctologist/Techni dakota ID = [id number] for URCIA, FAMELA Lab Interpretation (test Abnormal code = 39115-2) [facility]-Dqazwpovq5240-76-40 03:08:40 Test Item Value Reference Range Interpretation Comments POC-Potassium (test code 3.8 meq/L 3.6-5.5 : T ESTED AT [facility] = 1540) [address] [place] [address], [facility] 30: Proctologist/Techni dakota ID = [id number] for URCIA, FAMELA Lab Interpretation (test Normal code = 31136-0) [facility]-[id number] 03:08:40 Test Item Value Reference Range Interpretation Comments POC-Hemoglobin (test code 7.1 g/dL 13.0-16.8 L : TESTED AT [facility] = 1856) [address] [place] [address], [facility] 30: Proctologist/Techni dakota ID = [id number] for URCIA, FAMELA Lab Interpretation (test Abnormal code = 60560-6) [facility]-Sjqtmzhwh4423-10-52 03:08:40 Test Item Value Reference Range Interpretation Comments POC-Potassium (test code 3.8 meq/L 3.6-5.5 : T ESTED AT [facility] = 1540) [address] [place] [address], [address] 30: Proctologist/Techni dakota ID = [id number] for URCIA, FAMELA Lab Interpretation (test Normal code = 29272-5) [facility]-[id number] 03:08:40 Test Item Value Reference Range Interpretation Comments POC-Hemoglobin (test code 7.1 g/dL 13.0-16.8 L : [facility] [address] [facility], [address] 30: Proctologist/Techni dakota ID = [id number] for URCIA, FAMELA Lab Interpretation (test Abnormal code = 08799-5) [facility] CenterPOCT-YWMKEXWHT9601-13-71 03:08:40 Test Item Value Reference Range Interpretation Comments POC-POTASSIUM 3.8 meq/L 3.6-5.5 : TESTED AT [facility] 67 ([facility]) (test code [facility], = 1540) [address]: Proctologist/Techni dakota ID = [id number] for URCI A, FAMELA WFFD-[id number] 03:08:40 Test Item Value Reference Range Interpretation Comments POC-HEMOGLOBIN 7.1 g/dL 13.0-16.8 L : TESTED AT [facility] 67 ([facility]) (test code = [place] [facility], 185) [address]: Proctologist/Techni dakota ID = [id number] for URCI A, FAMELA POC-Blood gases, [id number] 03:08:39 Test Item Value Reference Range Interpretation [...] tomated message] code = 1838) The system [employer] generated this result transmit hernandez reference range : 80.0 - 90.0 mm Hg. The reference r colby was not used to interpret this result as normal/abnormal . SO2, Arterial-POC (test 91.0 % 96.0-97.0 L code = 1839) HCO3, Arterilal-POC 22.2 meq/L 21.0-29.0 (test code = 1840) BE, Arterial-POC (test -2.0 meq/L -2.0-3.0 : LIONEL HERNANDEZ AT [facility] code = 1841) [address] [place], [address]: Proctologist/Techni dakota ID = [id number] for URCIA, FAMELA Lab Interpretation Abnormal (test code = 81991-8) [facility]-Rduhxj6092-91-97 03:08:39 Test Item Value Reference Range Interpretation Comments POC-Sodium (test code = 134 meq/L 135-148 L : TE STED AT [facility] 1542) [address] [facility] [place], [address]: Proctologist/Techni dakota ID = [id number] for URCIA, FAMELA Lab Interpretation (test Abnormal code = 78362-7) [facility]-Blood gases, suckmgzr0243-92-27 03:08:39 Test Item Value Reference Range Interpretation [...] tomated message] code = 1838) The system [facility] generated this result transmit hernandez reference range : 80.0 - 90.0 mm Hg. The reference r colby was not used to interpret this result as normal/abnormal . SO2, Arterial-POC (test 91.0 % 96.0-97.0 L code = 1839) HCO3, Arterilal-POC 22.2 meq/L 21.0-29.0 (test code = 1840) BE, Arterial-POC (test -2.0 meq/L -2.0-3.0 : LIONEL HERNANDEZ AT [facility] code = 1841) [address] [facility], [address]: Proctologist/Techni dakota ID = [id number] for URCIA, FAMELA Lab Interpretation Abnormal (test code = 90739-1) [facility]-Rcfsgy9728-73-66 03:08:39 Test Item Value Reference Range Interpretation Comments POC-Sodium (test code = 134 meq/L 135-148 L : TE STED AT [facility] 1542) [address] [facility] [place], [address]: Proctologist/Techni dakota ID = [id number] for URCIA, FAMELA Lab Interpretation (test Abnormal code = 40620-5) [facility]-Blood gases, [id number] 03:08:39 Test Item Value Reference Range Interpretation [...] tomated message] code = 1838) The system [facility] generated this result transmit hernandez reference range : 80.0 - 90.0 mm Hg. The reference r colby was not used to interpret this result as normal/abnormal . SO2, Arterial-POC (test 91.0 % 96.0-97.0 L code = 1839) HCO3, Arterilal-POC 22.2 meq/L 21.0-29.0 (test code = 1840) BE, Arterial-POC (test -2.0 meq/L -2.0-3.0 : LIONEL HERNANDEZ AT [facility] code = 1841) [address] [place], [address]: Proctologist/Techni dakota ID = [id number] for URCIA, FAMELA Lab Interpretation Abnormal (test code = 85310-9) [facility]-Wyhxpf0063-01-83 03:08:39 Test Item Value Reference Range Interpretation Comments POC-Sodium (test code = 134 meq/L 135-148 L : TE STED AT [facility] 1542) [address] [facility], [address]: Proctologist/Techni dakota ID = [id number] for URCIA, FAMELA Lab Interpretation (test Abnormal code = 46144-9) [facility]-Blood gases, [id number] 03:08:39 Test Item Value Reference Range Interpretation [...] tomated message] code = 1838) The system [facility] generated this result transmit hernandez reference range : 80.0 - 90.0 mm Hg. The reference r colby was not used to interpret this result as normal/abnormal . SO2, Arterial-POC (test 91.0 % 96.0-97.0 L code = 1839) HCO3, Arterilal-POC 22.2 meq/L 21.0-29.0 (test code = 1840) BE, Arterial-POC (test -2.0 meq/L -2.0-3.0 : LIONEL HERNANDEZ AT [facility] code = 1841) [address] [facility], [address]: Proctologist/Techni dakota ID = [id number] for URCIA, FAMELA Lab Interpretation Abnormal (test code = 17636-0) [facility]-[id number] 03:08:39 Test Item Value Reference Range Interpretation Comments POC-Sodium (test code = 134 meq/L 135-148 L : TE STED AT [facility] 1542) [address] [facility], [address]: Proctologist/Techni dakota ID = [id number] for URCIA, FAMELA Lab Interpretation (test Abnormal code = 21502-3) [facility]-Blood gases, [id number] 03:08:39 Test Item Value Reference Range Interpretation [...] tomated message] code = 1838) The system [employer] generated this result transmit hernandez reference range : 80.0 - 90.0 mm Hg. The reference r colby was not used to interpret this result as normal/abnormal . SO2, Arterial-POC (test 91.0 % 96.0-97.0 L code = 1839) HCO3, Arterilal-POC 22.2 meq/L 21.0-29.0 (test code = 1840) BE, Arterial-POC (test -2.0 meq/L -2.0-3.0 : LIONEL HERNANDEZ AT [facility] code = 1841) [address] [place], [address]: Proctologist/Techni dakota ID = [id number] for URCIA, FAMELA Lab Interpretation Abnormal (test code = 92330-5) [facility]-Tigkrv4471-01-30 03:08:39 Test Item Value Reference Range Interpretation Comments POC-Sodium (test code = 134 meq/L 135-148 L : TE STED AT [facility] 1542) [address] [facility] [place], [address]: Proctologist/Techni dakota ID = [id number] for URCIA, FAMELA Lab Interpretation (test Abnormal code = 74408-0) [facility]-Blood gases, [id number] 03:08:39 Test Item Value Reference Range Interpretation [...] tomated message] code = 1838) The system [employer] generated this result transmit hernandez reference range : 80.0 - 90.0 mm Hg. The reference r colby was not used to interpret this result as normal/abnormal . SO2, Arterial-POC (test 91.0 % 96.0-97.0 L code = 1839) HCO3, Arterilal-POC 22.2 meq/L 21.0-29.0 (test code = 1840) BE, Arterial-POC (test -2.0 meq/L -2.0-3.0 : LIONEL HERNANDEZ AT [facility] code = 1841) [address] [facility], [address]: Proctologist/Techni dakota ID = [id number] for URCIA, FAMELA Lab Interpretation Abnormal (test code = 40794-8) [facility]-Feqnum7428-39-29 03:08:39 Test Item Value Reference Range Interpretation Comments POC-Sodium (test code = 134 meq/L 135-148 L : TE STED AT [facility] 1542) [address] [facility], 770 30: Proctologist/Techni dakota ID = [id number] for URCIA, FAMELA Lab Interpretation (test Abnormal code = 22874-2) [facility]-BLOOD GASES, [id number] 03:08:39 Test Item Value Reference Range Interpretation [...] EXCESS, -2.0 meq/L -2.0-3.0 : TESTED AT [facility] [address] ARTERIAL-POC [facility], (BEAKER) (test code 53413: = 1841) Proctologist/Techni dakota ID = [id number] for URCI A, FAMELA [id number] 03:08:39 Test Item Value Reference Range Interpretation Comments POC-SODIUM (BEAKER) 134 meq/L 135-148 L : TESTED AT [facility] 6720 (test code = 1542) [facility] [place], [address]: Proctologist/Techni dakota ID = [id number] for URCI A, FAMELA RAD, CHEST, 1 VIEW, NON [id number] 03:00:00Reason for exam:- >destaurationShould this be performed at the bedside?->Yes [facility] : 2000 Sex: MFINAL REPORT [...] MDReport Verified Date/Time: 09/07/2021 03:00:20 BASIC METABOLIC [id number] 01:49:40 Test Item Value Reference Range Interpretation [...] S NOT APPLICABLE FOR DIALYSIS PATIEN TS. Proctologist ID - [id number] 01:38:31 Test Item Value Reference Range Interpretation Comments PHOSPHORUS (BEAKER) (test code = 3.1 mg/dL 2.3-4.7 604) Proctologist ID - [id number] 01:38:30 Test Item Value Reference Range Interpretation Comments MAGNESIUM (BEAKER) (test code = 1.9 mg/dL 1.6-2.6 627) Proctologist ID - BSPOCT-GLUCOSE [id number] 00:10:21 Test Item Value Reference Range Interpretation Comments POC-GLUCOSE METER 128 mg/dL 70-110 H : TESTED A T [facility] 6720 (BEAKER) (test code = [place], 1538) [address]: Proctologist/Techni dakota ID = [id number] for ABBIE PIERRE POCT-GLUCOSE [id number] 15:58:02 Test Item Value Reference Range Interpretation Comments POC-GLUCOSE METER 142 mg/dL 70-110 H : [facility] (BEAKER) (test code = [place], 1538) [address]: Proctologist/Techni dakota ID = [id number] for Laura Ch POCT-GLUCOSE [id number] 13:04:07 Test Item Value Reference Range Interpretation Comments POC-GLUCOSE METER 141 mg/dL 70-110 H : [facility] (BEAKER) (test code = DONNA aMdrid [facility], 1538) [address]: Proctologist/Techni dakota ID = [id number] for Laura Ch TSH/FREE T4 IF [id number] 11:33:39 Test Item Value Reference Range Interpretation Comments THYROID STIMULATING HORMONE 4.429 uIU/mL 0.350-4.940 (BEAKER) (test code = 772) Proctologist ID - PIAYASARS-COV2/RT-PCR ([facility])2021-09-06 10:50:02 Test Item Value Reference Range Interpretation Comments SARS-COV2/RT-PCR (test Negative Not Detected, Negative, code = 6161887) See external report for linked test SARS-COV-2 PERFORMING LAB [facility] (test code = 2592085) Negative result for this test determines that [...] of the Act.Fact Sheet for Healthcare Prov iders:https://www.[employer]/sites/default/files/product/documents/Fact_Sheet_HC _Ngudfwkvj_Uvit_DILZ-LrU-1.pdfFact Sheet for Healthcare Patients:https://www.[employer]/sites/default/files/product/docume nts/Bukk_Tjqsq_Elmdzahg_Wois_YBMH-DnC-4.pdfPerforming Laboratory:[facility], [place] [address]MOHGEBB D, 25-HYDROXY 2021-09-06 07:57:12 Test Item Value Reference Range Interpretation Comments VITAMIN D 25-OH (LEOAKER) (test 15.4 ng/mL 6.6-49.9 code = 2764) Effective 02/27/2017: Reference Range ChangeNew: 6.6-49.9 ng/mL Previous: 13.0- 47.8 ng/mLRecommendedVitamin D Target Range: 30.0-40.0 ng/mLOperator ID - BS POCT-GLUCOSE [id number] 07:40:30 Test Item Value Reference Range Interpretation Comments POC-GLUCOSE METER 157 mg/dL 70-110 H : TESTED A T [facility] 6720 (GENEVA) (test code = FREDORAVINDRA [place] [facility], 1538) [address]: Proctologist/Techni dakota ID = [id number] for Laura Ch COMPLEMENT COMPONENT [id number] 07:37:31 Test Item Value Reference Range Interpretation Comments C3 COMPLEMENT (BEAKER) (test code = 25 mg/dL 82-193 L 393) Proctologist ID - BSCOMPLEMENT COMPONENT [id number] 07:37:30 Test Item Value Reference Range Interpretation Comments C4 COMPLEMENT (BEAKER) (test code = 4 mg/dL 15-57 L 394) Proctologist ID - BSPROTEIN, RANDOM [id number] 07:28:02 Test Item Value Reference Range Interpretation Comments PROTEIN, URINE (BEAKER) (test code 411 mg/dL 0-14 H = 1569) Proctologist ID - BS(CELLAVISION MANUAL DIFF)2021-09-06 07:15:58 Test [...] CONCENTRATION Decreased (CELLAVISION)(BEAKER) (test code = 3438) Proctologist ID - [id number] ID - joanna Fuentes comments: Slide comments:CBC W/PLT COUNT & AUTO [id number] 07:15:57 Test Item Value Reference Range Interpretation [...] (BEAKER) (test code = 413) CREATININE, RANDOM [id number] 06:26:45 Test Item Value Reference Range Interpretation Comments CREATININE URINE (BEAKER) (test 200.4 mg/dL code = 375) Reference Range: No NormalsOperator ID - BSURINALYSIS W/ [id number] 06:06:22 Test Item Value Reference Range Interpretation [...] = 1584) SOURCE(BEAKER) (test code = 2795) Proctologist ID - [auto]Proctologist ID - techOperator ID - techCOMPREHENSIVE METABOLIC [id number] 02:54:37 Test Item Value Reference Range Interpretation [...] S NOT APPLICABLE FOR DIALYSIS PATIEN TS. Proctologist ID - BSLACTIC ACID, [id number] 02:42:48 Test Item Value Reference Range Interpretation Comments LACTATE BLOOD VENOUS (2) (BEAKER) 1.38 mmol/L 0.50-2.20 (test code = 2872) Proctologist ID - [id number] 02:36:26 Test Item Value Reference Range Interpretation Comments MAGNESIUM (BEAKER) (test code = 1.6 mg/dL 1.6-2.6 627) Proctologist ID - [id number] 02:36:26 Test Item Value Reference Range Interpretation Comments PHOSPHORUS (BEAKER) (test code = 2.4 mg/dL 2.3-4.7 604) Proctologist ID - BSRAD, CHEST, 1 VIEW, NON [id number] 02:26:00Reason for exam:->sob[facility] : 2000 Sex: MFINAL REPORT [...] contours. Additional findings: None. Signed: Vernell Ndiaye [facility] Verified Date/Time: 09/06/2021 02:26:55 POCT-GLUCOSE [id number] 01:16:19 Test Item Value Reference Range Interpretation Comments POC-GLUCOSE METER 164 mg/dL 70-110 H : TESTED A T [facility] 6720 (BEAKER) (test code = [place]NA [place] [facility], 1538) [address]: Proctologist/Techni dakota ID = [id number] for GR AHAM, WENDY BASIC METABOLIC [id number] 19:41:58 Test Item Value Reference Range Interpretation [...] S NOT APPLICABLE FOR DIALYSIS PATIEN TS. Proctologist ID - [id number] 19:38:29 Test Item Value Reference Range Interpretation Comments MAGNESIUM (BEAKER) (test code = 1.7 mg/dL 1.6-2.6 627) Proctologist ID - [id number] 19:38:29 Test Item Value Reference Range Interpretation Comments PHOSPHORUS (BEAKER) (test code = 2.0 mg/dL 2.3-4.7 L 604) Proctologist ID - BSPOCT-GLUCOSE [id number] 19:12:09 Test Item Value Reference Range Interpretation Comments POC-GLUCOSE METER 184 mg/dL 70-110 H : TESTED A T [facility] 6720 (BEAKER) (test code = [place] [facility], 1538) [address]: Proctologist/Techni dakota ID = [id number] for CHANTE GIL [id number] 17:52:47 Test Item Value Reference Range Interpretation Comments FERRITIN (BEAKER) (test code = 4212.17 ng/mL 5.00-275.00 H 361) Proctologist ID - BSOperator ID - BSCT, [id number] 12:57:00Unlisted Reason for Exam - Click Yes and Enter Reason Below->YesUnlisted Reason for Exam->pancreatitis folllow-upIs this for enterography?->NoWill this procedure require oral contrast?->No [facility] : 2000 Sex: MFINAL REPORT [...] Lux Verified Date/Time: 09/05/2021 12:57:43 Reading Location: [facility] Reading Room - [place] [address] POCT-GLUCOSE [id number] 12:23:38 Test Item Value Reference Range Interpretation Comments POC-GLUCOSE METER 181 mg/dL 70-110 H : TESTED A T [facility] 6720 (BEAKER) (test code = [facility], 1538) [address]: Proctologist/Techni dakota ID = [id number] for CHANTE GIL POCT-GLUCOSE [id number] 06:55:24 Test Item Value Reference Range Interpretation Comments POC-GLUCOSE METER 197 mg/dL 70-110 H : TESTED A T [facility] 6720 (BEAKER) (test code = [facility] [place] [facility], 1538) [address]: Proctologist/Techni dakota ID = [id number] for ON UOHA, ALLAN COMPREHENSIVE METABOLIC [id number] 06:16:59 Test Item Value Reference Range Interpretation [...] S NOT APPLICABLE FOR DIALYSIS PATIEN TS. Proctologist ID - SHREE WCALCIUM, [id number] 05:57:49 Test Item Value Reference Range Interpretation [...] WBC 0-0 (BEAKER) (test code = 413) [id number] 01:18:24 Test Item Value Reference Range Interpretation Comments PHOSPHORUS (BEAKER) (test code = 1.2 mg/dL 2.3-4.7 LL 604) Proctologist ID - BSBASIC METABOLIC [id number] 01:17:10 Test Item Value Reference Range Interpretation [...] S NOT APPLICABLE FOR DIALYSIS PATIEN TS. Proctologist ID - [id number] 01:10:55 Test Item Value Reference Range Interpretation Comments MAGNESIUM (BEAKER) (test code = 2.3 mg/dL 1.6-2.6 627) Proctologist ID - BSPOCT-GLUCOSE [id number] 00:50:48 Test Item Value Reference Range Interpretation Comments POC-GLUCOSE METER 194 mg/dL 70-110 H : TESTED A T [facility] 6720 (BEAKER) (test code = [place], 1538) [address]: Proctologist/Techni dakota ID = [id number] for ON UOHA, ALLAN CT, CHEST WITH IV CONTRAST- PE TEST [id number] 21:21:00Unlisted Reason for Exam - Click Yes and Enter Reason Below->No [facility] : 2000 Sex: MFINAL REPORT [...] Vernell Ndiaye Verified Date/Time: 09/04/2021 21:21:16 POCT-GLUCOSE [id number] 18:23:42 Test Item Value Reference Range Interpretation Comments POC-GLUCOSE METER 248 mg/dL 70-110 H : TESTED A T [facility] 6720 (BEAKER) (test code = [facility], 1538) [address]: Proctologist/Techni dakota ID = [id number] for Bree Roman [id number] 14:56:22 Test Item Value Reference Range Interpretation Comments CALCIUM (BEAKER) (test code = 697) 5.8 mg/dL 8.4-10.2 LL Proctologist ID - ADMINPOCT-GLUCOSE [id number] 13:17:18 Test Item Value Reference Range Interpretation Comments POC-GLUCOSE METER 217 mg/dL 70-110 H : TESTED A T [facility] 6720 (BEAKER) (test code = [facility], 1538) 13016: Proctologist/Techni dakota ID = [id number] for Liana Flores CBC W/PLT COUNT & AUTO [id number] 07:22:59 Test Item Value Reference Range Interpretation [...] PERCENT (BEAKER) (test code = 2801) POCT-GLUCOSE [id number] 06:16:20 Test Item Value Reference Range Interpretation Comments POC-GLUCOSE METER 261 mg/dL 70-110 H : TESTED A T [facility] 6720 (BEAKER) (test code = [place], 1538) [address]: Proctologist/Techni dakota ID = [id number] for KENDALL JOYA COMPREHENSIVE METABOLIC [id number] 05:49:22 Test Item Value Reference Range Interpretation [...] S NOT APPLICABLE FOR DIALYSIS PATIEN TS. Proctologist ID - [id number] 05:33:14 Test Item Value Reference Range Interpretation Comments MAGNESIUM (BEAKER) (test code = 1.8 mg/dL 1.6-2.6 627) Proctologist ID - ADMINURINALYSIS W/ REFLEX URINE [id number] 01:34:44 Test Item Value Reference Range Interpretation [...] 1585) Rare SOURCE(BEAKER) (test code = 2795) Proctologist ID - [auto]Proctologist ID - techPOCT-GLUCOSE [id number] 00:34:17 Test Item Value Reference Range Interpretation Comments POC-GLUCOSE METER 261 mg/dL 70-110 H : TESTED A T [facility] 6720 (BEAKER) (test code = [place], 1538) [address]: Proctologist/Techni dakota ID = [id number] for SE KENDALL MARTIN [id number] 18:57:34 Test Item Value Reference Range Interpretation Comments MAGNESIUM (BEAKER) (test code = 1.3 mg/dL 1.6-2.6 L 627) Proctologist ID - ADMINPOCT-GLUCOSE [id number] 18:04:02 Test Item Value Reference Range Interpretation Comments POC-GLUCOSE METER 307 mg/dL 70-110 H : TESTED A T [facility] 6720 (BEAKER) (test code = [place], 1538) [address]: Proctologist/Techni dakota ID = [id number] for Liana Flores RAD, ABDOMEN/KUB, 1 VIEW [id number] 18:01:00Reason for exam:->Enteric tube placement verification [facility] : 2000 Sex: MFINAL REPORT [...] Signed: Anne Marie Correa Verified Date/Time: 09/03/2021 18:01:34 COMPREHENSIVE METABOLIC [id number] 17:50:55 Test Item Value Reference Range Interpretation [...] S NOT APPLICABLE FOR DIALYSIS PATIEN TS. Proctologist ID - [id number] ID - [id number] ID - ADMINCBC W/PLT COUNT & AUTO [id number] 17:43:10 Test Item Value Reference Range Interpretation [...] code = 2801) RAD, ABDOMEN/KUB, 1 VIEW [id number] 17:14:00Reason for exam:->confirm NGT placementCH[facility] : 2000 Sex: [...] 09/03/2021 17:14:35 , CHEST, 1 VIEW, NON [id number] 16:50:00Reason for exam:->ngt placementShould this be performed at the bedside?->Yes [facility] : 2000 Sex: MFINAL REPORT INDICATION: ngt placement COMPARISON: None TECHNIQUE: Single frontal viewof the chest. FINDINGS: Lungs and pleura: Trace right effusion and basilar atelectasisHeart and mediastinum: Normal heart size. Unremarkable mediastinal contours.Osseous structures: No acute abnormality .Other: Feeding tube descends below the diaphragm. Signed: Sunny, Anne Marie MDReport Verified Date/Time: 09/03/2021 16:50:54 [id number] 10:58:42 Test Item Value Reference Range Interpretation Comments PHOSPHORUS (BEAKER) 1.6 mg/dL 2.3-4.7 L Specimen slightly (test code = 604) hemolyzed Proctologist ID - BISI GCOMPREHENSIVE METABOLIC [id number] 06:03:24 Test Item Value Reference Range Interpretation [...] S NOT APPLICABLE FOR DIALYSIS PATIEN TS. Proctologist ID - BISI GPOCT-GLUCOSE [id number] 22:25:14 Test Item Value Reference Range Interpretation Comments POC-GLUCOSE METER 312 mg/dL 70-110 H : TESTED A T [facility] 6720 (LEOCAMILO) (test code = DONNA [place] [facility], 1538) 11[address]: Proctologist/Techni dakota ID = [id number] for FABRIZIO JOYCE POCT-GLUCOSE [id number] 19:00:17 Test Item Value Reference Range Interpretation Comments POC-GLUCOSE METER 339 mg/dL 70-110 H : Notified RN/MD: (GENEVA) (test code = TESTED AT [facility] 6720 1538) [place] [facility], [address]: Proctologist/Techni dakota ID = [id number] for Rudy mccord (contract)Fredi yana PROTEIN, RANDOM [id number] 08:28:13 Test Item Value Reference Range Interpretation Comments PROTEIN, URINE (BEAKER) (test code 243 mg/dL 0-14 H = 1569) Proctologist ID - BSOperator ID - BSCREATININE, RANDOM [id number] 07:21:31 Test Item Value Reference Range Interpretation Comments CREATININE URINE (BEAKER) (test 122.9 mg/dL code = 375) Reference Range: No NormalsOperator ID - BSRAD, CHEST, 1 VIEW, NON DEPT 2021-09-02 01:55:00Reason for exam:->chest painShould this be performed at the bedside?->Yes [facility] : 2000 Sex: MFINAL REPORT History: chest pain. Comparison: None. Findings: A single view of the chest is submitted. The cardiomediastinal contours are unremarkable. There is no focal consolidation, pneumothorax, large pleural effusion or evidence of overt pulmonary edema. There is no acute bony abnormality. Impression: No acute abnormality. Signed: Miles Alicia Verified Date/Time: 09/02/2021 01:55:59 POCT-GLUCOSE [id number] 23:28:42 Test Item Value Reference Range Interpretation Comments POC-GLUCOSE METER 277 mg/dL 70-110 H : TESTED A T [facility] 6720 (Unata) (test code = [employer] [place] [facility], 1538) [address]: Proctologist/Techni dakota ID = [id number] for RODRIGUES PAULINA POCT-GLUCOSE [id number] 18:19:51 Test Item Value Reference Range Interpretation Comments POC-GLUCOSE METER 263 mg/dL 70-110 H : TESTED A T [facility] 6720 (Unata) (test code = Morgan Everett [facility], 1538) [address]: Proctologist/Techni dakota ID = [id number] for Laura Ch HIGH SENSITIVITY TROPONIN [id number] 17:04:34 Test Item Value Reference Range Interpretation Comments HIGH SENSITIVITY < pg/ml See_Comment [Automated message] TROPONIN I (test code = The system which 5859235) generated this result transmitted ref erence range: <=35. Th e reference range was not used to interpr et this result as normal/abnormal . Proctologist ID - BSThe TOP LIFT NAILER STAT High Sensitivity Troponin-I results should be [...] PLATELET CONCENTRATION Decreased (CELLAVISION)(BEAKER) (test code = 3436) Proctologist ID - [id number] ID - joanna Fuentes comments: Slide comments:CBC W/PLT COUNT & AUTO [id number] 10:37:18 Test Item Value Reference Range Interpretation [...] (BEAKER) (test code = 413) COMPREHENSIVE METABOLIC [id number] 07:28:31 Test Item Value Reference Range Interpretation [...] S NOT APPLICABLE FOR DIALYSIS PATIEN TS. Proctologist ID - BSIMMUNOGLOBULIN A (IGA)2021-09-01 07:27:15 Test Item Value Reference Range Interpretation Comments IMMUNOGLOBULIN A (IGA) (BEAKER) 235 mg/dL 63-484 (test code = 639) Proctologist ID - BSPT/[id number] 07:11:49 Test Item Value Reference Range Interpretation [...] 2.5-3.5 for patients with mechanical heart valves.PROTHROMBIN TIME/[id number] 07:11:14 Test Item Value Reference Range Interpretation Comments PROTIME (BEAKER) 13.5 seconds 11.9-14.2 (test code = 759) INR (BEAKER) (test 1.04 See_Comment [Automat ed message] code = 370) The system [facility] generated this result transmitted ref erence range: <=5.90. The reference range was not used to int erpret this result as normal/abnormal . RECOMMENDED COUMADIN/WARFARIN INR THERAPY RANGESSTANDARD DOSE: 2.0 - 3.0 Includes: PROPHYLAXIS for venous thrombosis, systemic embolization; TREATMENT for venous thrombosis and/or pulmonary embolus.HIGH RISK: Target INR is 2.5-3.5 for patients with mechanical heart valves.POCT-GLUCOSE [id number] 22:01:13 Test Item Value Reference Range Interpretation Comments POC-GLUCOSE METER 219 mg/dL 70-110 H : TESTED A T [facility] 6720 (Unata) (test code = [facility], 1538) [address]: Proctologist/Techni dakota ID = [id number] for FABRIZIO JOYCE POCT-GLUCOSE [id number] 17:24:51 Test Item Value Reference Range Interpretation Comments POC-GLUCOSE METER 177 mg/dL 70-110 H : TESTED A T [facility] 6720 (Unata) (test code = [facility], 1538) 18064: Proctologist/Techni dakota ID = [id number] for Laura Ch [id number] 14:29:25 Test Item Value Reference Range Interpretation Comments RPR SCREEN (BEAKER) (test code = Nonreactive Nonreactive 420) RHEUMATOID FACTOR [id number] 14:27:52 Test Item Value Reference Range Interpretation Comments RHEUMATOID FACTOR TITER (BEAKER) (test :8 Negative code = 2285) RHEUMATOID FACTOR AB, REFLEX TO [id number] 14:26:49 Test Item Value Reference Range Interpretation Comments RHEUMATOID FACTOR (BEAKER) (test Positive Negative code = 573) POCT-GLUCOSE [id number] 13:43:32 Test Item Value Reference Range Interpretation Comments POC-GLUCOSE METER 163 mg/dL 70-110 H : TESTED A T [facility] 6720 (BEAKER) (test code = [facility], 1538) 828[address]: Proctologist/Techni dakota ID = [id number] for Laura Ch RETICULOCYTE [id number] 09:04:11 Test Item Value Reference Range Interpretation Comments RETICULOCYTE COUNT PCT (BEAKER) (test 0.4 % 0.5-1.8 L code = 575) Proctologist ID - [id number]-GLUCOSE [id number] 08:53:33 Test Item Value Reference Range Interpretation Comments POC-GLUCOSE METER 117 mg/dL 70-110 H : TESTED A T [facility] 6720 (BEAKER) (test code = [place], 1538) [address]: Proctologist/Techni dakota ID = [id number] for José Miguel Elliott [id number] 08:02:13 Test Item Value Reference Range Interpretation Comments FERRITIN (BEAKER) (test code = 84296.20 ng/mL 5.00-275.00 H 361) Proctologist ID - ADMINOperator ID - ADMINCOMPLEMENT COMPONENT [id number] 06:48:01 Test Item Value Reference Range Interpretation Comments C4 COMPLEMENT (BEAKER) (test code = < mg/dL 15-57 L 394) Proctologist ID - BSHIV-1 ANTIGEN WITH HIV-1/2 [id number] 06:38:19 Test Item Value Reference Range Interpretation Comments HIV-1 ANTIGEN WITH HIV 1\\T\\2 Nonreactive Nonreactive ANTIBODY (2) (BEAKER) (test code = 2586) Proctologist ID - BSCOMPLEMENT COMPONENT [id number] 06:32:35 Test Item Value Reference Range Interpretation Comments C3 COMPLEMENT (BEAKER) (test code = 13 mg/dL 82-193 L 393) Proctologist ID - BSCOMPREHENSIVE METABOLIC [id number] 06:30:18 Test Item Value Reference Range Interpretation [...] S NOT APPLICABLE FOR DIALYSIS PATIEN TS. Proctologist ID - [id number] 06:30:18 Test Item Value Reference Range Interpretation Comments MAGNESIUM (BEAKER) (test code = 1.5 mg/dL 1.6-2.6 L 627) Proctologist ID - BSPT/[id number] 06:13:21 Test Item Value Reference Range Interpretation Comments PROTIME (BEAKER) (test 13.8 seconds 11.9-14.2 code = 759) INR (BEAKER) (test 1.08 See_Comment [Automat ed code = 370) message] The [employer] (acquired by [employer] in 2014) stem which generated this result transmitted reference [...] 2.5-3.5 for patients with mechanical heart valves.PROTHROMBIN TIME/[id number] 06:12:36 Test Item Value Reference Range Interpretation Comments PROTIME (BEAKER) 13.8 seconds 11.9-14.2 (test code = 759) INR (BEAKER) (test 1.08 See_Comment [Automat ed message] code = 370) The system [facility] generated this result transmitted ref erence range: [...] WBC 0-0 (test code = 413) BLOOD [id number] 05:00:52 Test Item Value Reference Range Interpretation Comments CULTURE (BEAKER) (test No growth in 5 days code = 1095) BLOOD [id number] 03:00:57 Test Item Value Reference Range Interpretation Comments CULTURE (BEAKER) (test No growth in 5 days code = 1095) The specimen volume collected for this blood culture was below the optimum (10 mL per bottle or 20 mL total). Use of lower volumes may adversely affect recovery and/or detection times of some organisms.POCT-GLUCOSE [id number] 21:20:13 Test Item Value Reference Range Interpretation Comments POC-GLUCOSE METER 132 mg/dL 70-110 H : TESTED A T [facility] 6720 (BEAKER) (test code = [facility], 1538) 09[address]: Proctologist/Techni dakota ID = [id number] for SA NDERS, AXEL POCT-GLUCOSE [id number] 17:39:12 Test Item Value Reference Range Interpretation Comments POC-GLUCOSE METER 137 mg/dL 70-110 H : TESTED A T [facility] 6720 (BEAKER) (test code = [facility], 1538) 50828: Proctologist/Techni dakota ID = [id number] for Nury Link PERIPHERAL BLOOD SMEAR - PATHOLOGIST [id number] 16:27:42 Test Item Value Reference Range Interpretation Comments PERIPHERAL SMR REVIEW Microcytic hypochromic (BEAKER) (test code = anemia with mild 2640) anisopoikilocytosis. Leukopenia with neutropenia and left shifted granulocytic elements. Rare atypical lymphocytes. Decreased platelets; no significant platelet clumping/satellitism identified. [id number] Brea Morales (BEAKER) (test code = Xavier Gallegos 2849) POCT-GLUCOSE [id number] 12:50:21 Test Item Value Reference Range Interpretation Comments POC-GLUCOSE METER 148 mg/dL 70-110 H : TESTED A T [facility] 6720 (BEAKER) (test code = [facility], 1538) 31019: Proctologist/Techni dakota ID = [id number] for Nury Link MISCELLANEOUS LAB [id number] 12:30:57 Test Item Value Reference Range Interpretation Comments SCAN RESULT (test code = see scanned results [id number]) see scanned [id number] 11:53:39 Test Item Value Reference Range Interpretation Comments LIPASE (BEAKER) (test code = 749) 969 U/L 8-78 H Proctologist ID - BSANA TITER AND [id number] 10:59:38 Test Item Value Reference Range Interpretation [...] 1+ few (test code = 768) POCT-GLUCOSE [id number] 08:23:03 Test Item Value Reference Range Interpretation Comments POC-GLUCOSE METER 97 mg/dL 70-110 : TESTED A T [facility] 6720 (BEAKER) (test code = [place] [facility], 1538) [address]: Proctologist/Techni dakota ID = [id number] for Nury Uriostegui [id number] 04:36:10 Test Item Value Reference Range Interpretation Comments MAGNESIUM (BEAKER) (test code = 1.5 mg/dL 1.6-2.6 L 627) Proctologist ID - BSC-REACTIVE [id number] 04:36:10 Test Item Value Reference Range Interpretation Comments C-REACTIVE PROTEIN (BEAKER) (test 0.77 mg/dL 0.00-0.50 H code = 676) Proctologist ID - BSCOMPREHENSIVE METABOLIC [id number] 04:36:09 Test Item Value Reference Range Interpretation [...] S NOT APPLICABLE FOR DIALYSIS PATIEN TS. Proctologist ID - [id number] 04:12:17 Test Item Value Reference Range Interpretation Comments PROTIME (BEAKER) (test 13.8 seconds 11.9-14.2 code = 759) INR (BEAKER) (test 1.08 See_Comment [Automat ed code = 370) message] The [employer] (acquired by [employer] in 2014) stem which generated this result transmitted reference [...] 2.5-3.5 for patients with mechanical heart valves.PROTHROMBIN TIME/[id number] 04:11:15 Test Item Value Reference Range Interpretation Comments PROTIME (BEAKER) 13.8 seconds 11.9-14.2 (test code = 759) INR (BEAKER) (test 1.08 See_Comment [Automat ed message] code = 370) The system [facility] generated this result transmitted ref erence range: [...] WBC 0-0 (test code = 413) POCT-GLUCOSE [id number] 21:48:31 Test Item Value Reference Range Interpretation Comments POC-GLUCOSE METER 136 mg/dL 70-110 H : TESTED A T [facility] 6720 (BEAKER) (test code = DONNA WHITMAN, 1538) [address]: Proctologist/Techni dakota ID = [id number] for SA NDERS, AXEL SARS-COV2/RT-PCR ([facility])2021-08-29 20:38:24 Test Item Value Reference Range Interpretation Comments SARS-COV2/RT-PCR (test code = Negative Negative 3157278) Negative result for this test determines that [...] the Act.Testing was performed using t farida [employer] SARS-CoV-2 assay.Fact Sheet for Healthcare Providers:https://www.Shortlist.mcqueen/pedro/RT SARS-CoV-2 HCP Fact Sheet 51- 890627.pdfFact Sheet for Healthcare Patients:https://www.Shortlist.mcqueen/pedro/RT SARS-CoV-2 Patient Fact Sheet EN 51-553158J0.pdfPOCT-GLUCOSE [id number] 17:55:13 Test Item Value Reference Range Interpretation Comments POC-GLUCOSE METER 109 mg/dL 70-110 : TESTED A T [facility] 6720 (BEAKER) (test code = [facility], 1538) [address]: Proctologist/Techni dakota ID = [id number] for Toy Lopez [id number] 14:07:15 Test Item Value Reference Range Interpretation Comments LIPASE (BEAKER) (test code = 749) > U/L 8-78 H Proctologist ID - FATMATA [id number] 14:02:51 Test Item Value Reference Range Interpretation Comments FIBRINOGEN LEVEL (BEAKER) (test 189 mg/dl 225-434 L code = 658) [id number] 13:33:46 Test Item Value Reference Range Interpretation Comments PHOSPHORUS (BEAKER) 2.1 mg/dL 2.3-4.7 L Specimen slightly (test code = 604) hemolyzed Proctologist ID - FATMATA WPOCT-GLUCOSE [id number] 11:56:19 Test Item Value Reference Range Interpretation Comments POC-GLUCOSE METER 109 mg/dL 70-110 : TESTED A T [facility] 6720 (BEAKER) (test code = [facility], 1538) [address]: Proctologist/Techni dakota ID = [id number] for Toy Lopez [id number] 10:37:25 Test Item Value Reference Range Interpretation Comments MAGNESIUM (BEAKER) 1.4 mg/dL 1.6-2.6 L Specimen slightly (test code = 627) hemolyzed Proctologist ID - BSCOMPREHENSIVE METABOLIC [id number] 10:37:25 Test Item Value Reference Range Interpretation [...] S NOT APPLICABLE FOR DIALYSIS PATIEN TS. Proctologist ID - BSPOCT-GLUCOSE [id number] 08:55:18 Test Item Value Reference Range Interpretation Comments POC-GLUCOSE METER 101 mg/dL 70-110 : TESTED A T [facility] 6720 (BEAKER) (test code = [place], 1538) [address]: Proctologist/Techni dakota ID = [id number] for Toy Lopez PROTHROMBIN TIME/[id number] 05:16:55 Test Item Value Reference Range Interpretation Comments PROTIME (BEAKER) 16.3 seconds 11.9-14.2 H (test code = 759) INR (BEAKER) (test 1.33 See_Comment [Automat ed message] code = 370) The system [facility] generated this result transmitted ref erence range: [...] WBC 0-0 (test code = 413) POCT-GLUCOSE [id number] 04:41:33 Test Item Value Reference Range Interpretation Comments POC-GLUCOSE METER 122 mg/dL 70-110 H : TESTED A T [facility] 6720 (BEAKER) (test code = [place], 1538) [address]: Proctologist/Techni dakota ID = [id number] for Rachele Singh HEPATITIS B SURFACE [id number] 19:07:46 Test Item Value Reference Range Interpretation Comments HEPATITIS B SURFACE ANTIGEN (2) Nonreactive Nonreactive (BEAKER) (test code = 2585) Specimen is considered negative for HBsAg.HEPATITIS C [id number] 18:37:24 Test Item Value Reference Range Interpretation Comments HEPATITIS C ANTIBODY (BEAKER) Nonreactive Nonreactive (test code = 367) Proctologist ID - BSHEPATITIS A ANTIBODY, [id number] 18:29:47 Test Item Value Reference Range Interpretation Comments HEPATITIS A IGG ANTIBODY (BEAKER) Reactive Nonreactive A (test code = 2797) Proctologist ID - BSHEPATITIS B SURFACE [id number] 18:27:24 Test Item Value Reference Range Interpretation Comments HEPATITIS B SURFACE ANTIBODY 328.2 mIU/mL <8.0 H (BEAKER) (test code = 647) Proctologist ID - BSHEPATITIS B CORE ANTIBODY, [id number] 18:27:24 Test Item Value Reference Range Interpretation Comments HEPATITIS B CORE TOTAL ANTIBODY Nonreactive Nonreactive (BEAKER) (test code = 497) Proctologist ID - BSRapid drug screen, [id number] 18:17:41 Test Item Value Reference Range Interpretation Comments Barbiturate Screen Negative Negative (test code = 43632-7) Benzodiazepine Screen Negative Negative (test code = 74500-5) Cocaine (Metab.) Negative Negative Screen (test code = 3397-7) Methadone Screen (test Negative Negative code = 27605-1) Opiate Screen (test Negative Negative code = 76991-4) Cannabinoid Screen Negative Negative (test code = 66620-1) Amph/Methamph Screen Negative Negative (test code = 18517-9) Phencyclidine Screen Negative Negative (test code = 78283-0) pH, UA (test code = 7.5 5.0-8.0 5803-2) IDALIA (test code = IDALIA) DRUG CUTOFF CONC.Cocaine 300 ng/mL Cannabinoid 50 ng/mLBenzodiazepine 200 ng/mLBarbiturate 200 ng/mLPhencyclidine 25 ng/mLOpiate 300 ng/mLMethadone 300 ng/mLAmphetamine/ 1000 ng/mL Methamphetamine This assay provides an unconfirmed qualitative test result for the clinical management of patients in emergency situations. Chain of custody not maintained. Some kgzo-fku-ylgizxs medications, as well as adulterants, may cause inaccurate results. Clinical correlation should be applied. A more comprehensive drug screen or confirmation of a detected drug may be performed upon request.Proctologist ID - BS Lab Interpretation Normal (test code = 15975-8) [facility], [id number] 18:17:41 Test Item Value Reference Range Interpretation Comments Barbiturate Screen Negative Negative (test code = 68983-6) Benzodiazepine Screen Negative Negative (test code = 99673-6) Cocaine (Metab.) Negative Negative Screen (test code = 3397-7) Methadone Screen (test Negative Negative code = 78350-3) Opiate Screen (test Negative Negative code = 48268-2) Cannabinoid Screen Negative Negative (test code = 01172-0) Amph/Methamph Screen Negative Negative (test code = 90421-8) Phencyclidine Screen Negative Negative (test code = 97444-4) pH, UA (test code = 7.5 5.0-8.0 5803-2) IDALIA (test code = IDALIA) DRUG CUTOFF CONC.Cocaine 300 ng/mL Cannabinoid 50 ng/mLBenzodiazepine 200 ng/mLBarbiturate 200 ng/mLPhencyclidine 25 ng/mLOpiate 300 ng/mLMethadone 300 ng/mLAmphetamine/ 1000 ng/mL Methamphetamine This assay provides an unconfirmed qualitative test result for the clinical management of patients in emergency situations. Chain of custody not maintained. Some fzvx-bjx-jmclswc medications, as well as adulterants, may cause inaccurate results. Clinical correlation should be applied. A more comprehensive drug screen or confirmation of a detected drug may be performed upon request.Proctologist ID - BS Lab Interpretation Normal (test code = 36174-2) [facility], [id number] 18:17:41 Test Item Value Reference Range Interpretation Comments Barbiturate Screen Negative Negative (test code = 25424-3) Benzodiazepine Screen Negative Negative (test code = 42624-2) Cocaine (Metab.) Negative Negative Screen (test code = 3397-7) Methadone Screen (test Negative Negative code = 20597-1) Opiate Screen (test Negative Negative code = 34337-3) Cannabinoid Screen Negative Negative (test code = 05638-2) Amph/Methamph Screen Negative Negative (test code = 62809-8) Phencyclidine Screen Negative Negative (test code = 88699-5) pH, UA (test code = 7.5 5.0-8.0 5803-2) IDALIA (test code = IDALIA) DRUG CUTOFF CONC.Cocaine 300 ng/mL Cannabinoid 50 ng/mLBenzodiazepine 200 ng/mLBarbiturate 200 ng/mLPhencyclidine 25 ng/mLOpiate 300 ng/mLMethadone 300 ng/mLAmphetamine/ 1000 ng/mL Methamphetamine This assay provides an unconfirmed qualitative test result for the clinical management of patients in emergency situations. Chain of custody not maintained. Some acnr-vxj-gjmrshn medications, as well as adulterants, may cause inaccurate results. Clinical correlation should be applied. A more comprehensive drug screen or confirmation of a detected drug may be performed upon request.Proctologist ID - BS Lab Interpretation Normal (test code = 49367-9) [facility], [id number] 18:17:41 Test Item Value Reference Range Interpretation Comments Barbiturate Screen Negative Negative (test code = 70617-3) Benzodiazepine Screen Negative Negative (test code = 14581-6) Cocaine (Metab.) Negative Negative Screen (test code = 3397-7) Methadone Screen (test Negative Negative code = 49128-4) Opiate Screen (test Negative Negative code = 14419-6) Cannabinoid Screen Negative Negative (test code = 73029-1) Amph/Methamph Screen Negative Negative (test code = 46901-4) Phencyclidine Screen Negative Negative (test code = 71637-4) pH, UA (test code = 7.5 5.0-8.0 5803-2) IDALIA (test code = IDALIA) DRUG CUTOFF CONC.Cocaine 300 ng/mL Cannabinoid 50 ng/mLBenzodiazepine 200 ng/mLBarbiturate 200 ng/mLPhencyclidine 25 ng/mLOpiate 300 ng/mLMethadone 300 ng/mLAmphetamine/ 1000 ng/mL Methamphetamine This assay provides an unconfirmed qualitative test result for the clinical management of patients in emergency situations. Chain of custody not maintained. Some joxe-atr-vikrbzv medications, as well as adulterants, may cause inaccurate results. Clinical correlation should be applied. A more comprehensive drug screen or confirmation of a detected drug may be performed upon request.Proctologist ID - BS Lab Interpretation Normal (test code = 60234-6) [facility], [id number] 18:17:41 Test Item Value Reference Range Interpretation Comments Barbiturate Screen Negative Negative (test code = 34923-6) Benzodiazepine Screen Negative Negative (test code = 50124-4) Cocaine (Metab.) Negative Negative Screen (test code = 3397-7) Methadone Screen (test Negative Negative code = 78420-3) Opiate Screen (test Negative Negative code = 85540-5) Cannabinoid Screen Negative Negative (test code = 98998-6) Amph/Methamph Screen Negative Negative (test code = 07450-2) Phencyclidine Screen Negative Negative (test code = 67312-1) pH, UA (test code = 7.5 5.0-8.0 5803-2) IDALIA (test code = IDALIA) DRUG CUTOFF CONC.Cocaine 300 ng/mL Cannabinoid 50 ng/mLBenzodiazepine 200 ng/mLBarbiturate 200 ng/mLPhencyclidine 25 ng/mLOpiate 300 ng/mLMethadone 300 ng/mLAmphetamine/ 1000 ng/mL Methamphetamine This assay provides an unconfirmed qualitative test result for the clinical management of patients in emergency situations. Chain of custody not maintained. Some aabb-qli-dnzzhkb medications, as well as adulterants, may cause inaccurate results. Clinical correlation should be applied. A more comprehensive drug screen or confirmation of a detected drug may be performed upon request.Proctologist ID - BS Lab Interpretation Normal (test code = 89491-8) [facility], [id number] 18:17:41 Test Item Value Reference Range Interpretation Comments Barbiturate Screen Negative Negative (test code = 48588-1) Benzodiazepine Screen Negative Negative (test code = 65286-1) Cocaine (Metab.) Negative Negative Screen (test code = 3397-7) Methadone Screen (test Negative Negative code = 17170-2) Opiate Screen (test Negative Negative code = 74351-4) Cannabinoid Screen Negative Negative (test code = 10257-6) Amph/Methamph Screen Negative Negative (test code = 65161-5) Phencyclidine Screen Negative Negative (test code = 21519-2) pH, UA (test code = 7.5 5.0-8.0 5803-2) IDALIA (test code = IDALIA) DRUG CUTOFF CONC.Cocaine 300 ng/mL Cannabinoid 50 ng/mLBenzodiazepine 200 ng/mLBarbiturate 200 ng/mLPhencyclidine 25 ng/mLOpiate 300 ng/mLMethadone 300 ng/mLAmphetamine/ 1000 ng/mL Methamphetamine This assay provides an unconfirmed qualitative test result for the clinical management of patients in emergency situations. Chain of custody not maintained. Some rrus-mkq-keksrrt medications, as well as adulterants, may cause inaccurate results. Clinical correlation should be applied. A more comprehensive drug screen or confirmation of a detected drug may be performed upon request.Proctologist ID - BS Lab Interpretation Normal (test code = 18777-4) [facility], [id number] 18:17:41 Test Item Value Reference Range Interpretation [...] situations. Chain of custody not maintained. Some suno-epa-qprsjyb medications, as well as adulterants, may cause inaccurate results. Clinical correlation should be applied. A more comprehensive drug screen or confirmation of a detected drug may be performed upon request.Proctologist ID - BSIMMUNOGLOBULIN G (IGG)2021-08-28 18:13:19 Test Item Value Reference Range Interpretation Comments IMMUNOGLOBULIN G (IGG) 1400 mg/dL See_Comment [Aut omated message] (BEAKER) (test code = The sy stem which 427) generated this result transmit hernandez reference range : 540-1,822. The reference range was not used to interpret this result as normal/abnormal . Proctologist ID - BSIRON, TIBC, % SAT. (WITHOUT FERRITIN)2021-08-28 18:13:19 Test Item Value Reference Range Interpretation Comments IRON (BEAKER) (test code = 547) 139.0 ug/dL 40.0-160.0 TOTAL IRON BINDING CAPACITY 178 ug/dL 250-450 L (BEAKER) (test code = 769) IRON % SATURATION (2) (BEAKER) 78 % 20-55 H (test code = 2590) Proctologist ID - [id number] 16:36:26 Test Item Value Reference Range Interpretation Comments FERRITIN (BEAKER) (test code = 98897.56 ng/mL 5.00-275.00 H 361) Proctologist ID - BSOperator ID - [id number]-[id number] 14:45:11 Test Item Value Reference Range Interpretation Comments ALPHA-1 ANTITRYPSIN 130.90 mg/dL 90.00-200.00 Specimen slightly (BEAKER) (test code = hemoly zed 502) Proctologist ID - DBPOCT-GLUCOSE [id number] 14:23:23 Test Item Value Reference Range Interpretation Comments POC-GLUCOSE METER 97 mg/dL 70-110 : [facility] (test code = [facility], 1538) [address]: Proctologist/Techni dakota ID = [id number] for José Miguel Larkin POCT-GLUCOSE [id number] 08:20:47 Test Item Value Reference Range Interpretation Comments POC-GLUCOSE METER 85 mg/dL 70-110 : TESTED A T [facility] 6720 ([facility]) (test code = [facility], 1538) [address]: Proctologist/Techni dakota ID = [id number] for José Miguel Larkin COMPREHENSIVE METABOLIC [id number] 06:21:17 Test Item Value Reference Range Interpretation [...] S NOT APPLICABLE FOR DIALYSIS PATIEN TS. Proctologist ID - [id number] 06:03:12 Test Item Value Reference Range Interpretation Comments MAGNESIUM (BEAKER) (test code = 1.8 mg/dL 1.6-2.6 627) Proctologist ID - DBCBC (HEMOGRAM ONLY)2021-08-28 05:04:44 Test [...] WBC 0-0 (test code = 413) POCT-GLUCOSE [id number] 22:30:31 Test Item Value Reference Range Interpretation Comments POC-GLUCOSE METER 99 mg/dL 70-110 : Notified RN/MD: TESTED (GENEVA) (test code = AT [facility] 67[address] [facility] 1538) [facility], [facility] 30: Proctologist/Techni dakota ID = [id number] for Artur Anders MR, ABDOMEN, [id number] 18:44:00Unlisted Reason for Exam - Click Yes and Enter Reason Below->No [facility] : 2000 Sex: MFINAL REPORT [...] MDReport Verified Date/Time: 08/27/2021 18:44:20 Reading Location: [facility] C013Y CT Body Reading Room MR, ABDOMEN, [id number] 18:44:00Pancreas protocol Unlisted Reason for Exam - Click Yes and Enter Reason Below->No Does the patient have an implanted electronic device?->No [facility] [place] [facility] [facility] : 2000 Sex: MFINAL REPORT [...] collection. No biliary ductal dilation. Signed: Armaan Llaneseport Verified Date/Time: 08/27/2021 18:44:20 Reading Location: [facility] B1 C013Y CT Body Reading Room COMPREHENSIVE METABOLIC [id number] 06:35:42 Test Item Value Reference Range Interpretation [...] S NOT APPLICABLE FOR DIALYSIS PATIEN TS. Proctologist ID - MARIBEL [id number] 06:34:17 Test Item Value Reference Range Interpretation Comments MAGNESIUM (BEAKER) (test code = 2.1 mg/dL 1.6-2.6 627) Proctologist ID - MARIBEL LCBC (HEMOGRAM ONLY)2021-08-27 06:06:14 [...] WBC 0-0 (BEAKER) (test code = 413) [id number] 12:41:39 Test Item Value Reference Range Interpretation Comments LIPASE (BEAKER) (test code = 749) 1190 U/L 8-78 H Proctologist ID Cherelle CLARKA MURINALYSIS W/ REFLEX URINE [id number] 07:27:57 Test Item Value Reference Range Interpretation [...] = 1521) SOURCE(BEAKER) (test code = 2795) Proctologist ID - [auto]Proctologist ID - tech(CELLAVISION MANUAL DIFF)2021-08-26 03:09:42 Test [...] CONCENTRATION Decreased (CELLAVISION)(BEAKER) (test code = 3438) Proctologist ID - [id number] ID - Sismelissa comments: Slide comments:CBC W/PLT COUNT & AUTO [id number] 03:09:41 Test Item Value Reference Range Interpretation [...] (BEAKER) (test code = 413) COMPREHENSIVE METABOLIC [id number] 02:27:26 Test Item Value Reference Range Interpretation [...] S NOT APPLICABLE FOR DIALYSIS PATIEN TS. Proctologist ID - ALVINA [id number] 02:26:17 Test Item Value Reference Range Interpretation Comments TRIGLYCERIDES (BEAKER) (test code = 175 mg/dL 540) TRIGLYCERIDE REFERENCE RANGELow Risk <150Borderline Risk 150-199High Risk 200-499Very High Risk >=500Operator ID - ALVINA [id number] 02:26:16 Test Item Value Reference Range Interpretation Comments MAGNESIUM (BEAKER) (test code = 2.2 mg/dL 1.6-2.6 627) Proctologist ID - ALVINA MPROTHROMBIN TIME/[id number] 02:13:14 Test Item Value Reference Range Interpretation Comments PROTIME (BEAKER) 26.7 seconds 11.9-14.2 H (test code = 759) INR (BEAKER) (test 2.49 See_Comment [Automat ed message] code = 370) The system [facility] generated this result transmitted ref erence range: <=5.90. The reference range was not used to int erpret this result as normal/abnormal . RECOMMENDED COUMADIN/WARFARIN INR THERAPY RANGESSTANDARD DOSE: 2.0 - 3.0 Includes: PROPHYLAXIS for venous thrombosis, systemic embolization; TREATMENT for venous thrombosis and/or pulmonary embolus.HIGH RISK: Target INR is 2.5-3.5 for patients with mechanical heart valves.
--- NOTE | 2022-08-01 22:24 | RAD REPORT ---
EXAM DESCRIPTION: CT - Spine Lumbar Wo Con - 08/01/2022 10:14 pm CLINICAL HISTORY: Radiculopathy. PAIN COMPARISON: Pelvis Wo Cont dated 08/01/2022 TECHNIQUE: Axial noncontrast CT imaging of the lumbar spine was performed with coronal and sagittal re-formatted images. All CT scans are performed using dose optimization technique as appropriate and may include automated exposure control or mA/KV adjustment according to patient size. FINDINGS: No acute lumbar spine fracture seen. No aggressive marrow pattern or malalignment. Paraspinal tissues are normal in thickness. No paraspinal abscess or hematoma seen. Posterior disc bulges are noted involving the lower lumbar spine. IMPRESSION: No acute lumbar spine abnormality. Mild lower lumbar spondylosis in the form of bulging of disc material. Consider MRI follow-up for assessment of disc disease if clinically desired.
[2022-08-01] MEDS ORDERED: KETOROLAC 30 MG/ML INJ ONE (22:26)
[2022-08-01] MEDS ORDERED: ONDANSETRON 4 MG (ODT) TAB ONE (22:26)
[2022-08-01] MEDS ORDERED: CYCLOBENZAPRINE 10 MG TAB ONE (22:26)
[2022-08-01] MEDS ORDERED: HYDROCODONE/APAP 10/325 TAB ONE ×2 (22:26→23:22)
--- NOTE | 2022-08-01 22:27 | RAD REPORT ---
EXAM DESCRIPTION: CT - Pelvis Wo Cont - 08/01/2022 10:14 pm CLINICAL HISTORY: BLUNT TRAUMA Trauma, pain COMPARISON: Stone Protocol dated 07/30/2022; Spine Lumbar Wo Con dated 08/01/2022; Abdomen Pelvis W Contrast dated 03/15/2022; Abdomen Pelvis W Contrast dated 03/13/2022 TECHNIQUE: All CT scans are performed using dose optimization technique as appropriate and may inclu de automated exposure control or mA/KV adjustment according to patient size. FINDINGS: Severe osteoarthritis affects the left hip. There is complete loss of joint space with ost eophytosis subchondral cyst. Ruib-jk-ollb is present. No AVN pattern. No acute fracture or dislocation seen. Symmetric sacral ala and sacroiliac joints. Enlarged lymph nodes are seen in the inguinal regions pelvic sidewalls, nonspecific. IMPRESSION: Severe osteoarthritis left hip. No acute fracture seen. Nonspecific enlarged pelvic lymphadenopathy.
--- NOTE | 2022-08-01 23:15 | EDPHYS ---
Physician Documentation [facility] Name: Sal Gomez Age: 22 yrs Sex: Male : 2000 Arrival Date: 08/01/2022 Time: 21:33 Bed 8 Private MD: ED Physician Daryl Massey HPI: 08/01 21:37 This 22 yrs old Male presents to ER via Unassigned with complaints of Back sp4 Pain, Hip Pain. 21:46 22-year-old male with a history of CVA who is confined to the wheelchair presents with sp4 EMS after acute fall at home approximately 1 hour ago causing patient to fall out of the wheelchair and causing patient to develop pain in the left hip and lower back. Patient was assessed here for back pain on 07/30/2022. Patient had a full work-up including CT abdomen and pelvis that has revealed resolving acute pancreatitis, distended small bowel loops consistent with enteritis, moderate amount of residual gas and stool through the colon, severe osteoarthritis of the left hip and cholelithiasis. At this time patient reports moderate left hip pain, and lower back pain.. Historical: - Home Meds: 21:41 carvedilol 25 mg Oral tab [Active]; Zoloft 25 mg Oral tab 1 tab once daily [Active]; mb9 metoprolol tartrate 25 mg Oral tab 1 tab 2 times per day [Active]; metformin 500 mg Oral tab 1 tab 2 times per day [Active]; sertraline 50 mg Oral tab 1 tab once daily [Active]; Zofran 4 mg Oral tab 1 tab 4 times per day [Active]; trazodone 50 mg Oral tab 2 tabs once daily [Active]; gabapentin 300 mg Oral tab three times a day [Active]; Risperdal 0.5 mg Oral tab 1 tab once daily [Active]; Creon 24,000-76,000 -120,000 unit Oral cpDR 3 caps 3 times per day [Active]; prednisone 50 mg Oral tab once daily [Active]; - PMHx: 21:41 borderline personlity disorder; Cerebrovascular accident; necrotizing pancreatitis; mb9 Rheumatoid Arthritis; PTSD; Lupus erythematosus; Hypertensive disorder; - PSHx: 21:41 Appendectomy; Hip surgery; Multiple abdominal surgeries; mb9 - Immunization history:: Adult Immunizations up to date. - Social history:: Smoking status: Reported history of juuling and/or vaping. - Family history:: not pertinent. ROS: 21:50 Constitutional: Negative for fever, chills, and weight loss, Eyes: Negative for injury, sp4 pain, redness, and discharge, ENT: Negative for injury, pain, and discharge, Neck: Negative for injury, pain, and swelling, Cardiovascular: Negative for chest pain, palpitations, and edema, Respiratory: Negative for shortness of breath, cough, wheezing, and pleuritic chest pain, Abdomen/GI: Negative for abdominal pain, nausea, vomiting, diarrhea, and constipation, Back: Positive for fall, lower back pain, lower back injury 1 hour prior to arrival : Negative for injury, bleeding, discharge, and swelling, MS/Extremity: Positive for left hip pain after acute fall 1 hour prior to arrival, for lower back pain Skin: Negative for injury, rash, and discoloration, Neuro: Negative for headache, weakness, numbness, tingling, and seizure, Psych: Negative for depression, anxiety, Allergy/Immunology: Negative for hives, rash, and allergies, Endocrine: Negative for neck swelling, polydipsia, polyuria, polyphagia, and marked weight changes, Hematologic/Lymphatic: Negative for swollen nodes, abnormal bleeding, and unusual bruising. Exam: 21:50 Constitutional: This is a well developed, well nourished patient who is awake, alert, sp4 and in no acute distress. Patient is nonambulatory and is confined to the wheelchair Head/Face: Normocephalic, atraumatic. Eyes: Pupils equal round and reactive to light, extra-ocular motions intact. Lids and lashes normal. Conjunctiva and sclera are not injected. Cornea within normal limits. Periorbital areas with no swelling, redness, or edema. ENT: Nares patent. No nasal discharge, no septal abnormalities noted. Tympanic membranes are normal and external auditory canals are clear. Oropharynx with no redness, swelling, or masses, exudates, or evidence of obstruction, uvula midline. Mucous membranes moist. Neck: Trachea midline, no thyromegaly or masses palpated, and no cervical lymphadenopathy. Supple, full range of motion without nuchal rigidity, or vertebral point tenderness. No Meningismus. Chest/axilla: Normal chest wall appearance and motion. Nontender with no deformity. No lesions are appreciated. Cardiovascular: Regular rate and rhythm with a normal S1 and S2. No gallops, murmurs, or rubs. Normal PMI, no JVD. No pulse deficits. Respiratory: Lungs have equal breath sounds bilaterally, clear to auscultation and percussion. No rales, rhonchi or wheezes noted. No increased work of breathing, no retractions or nasal flaring. Abdomen/GI: Soft, non-tender, with normal bowel sounds. No distension or tympany. No guarding or rebound. No evidence of tenderness throughout. 22:58 Constitutional: This is a well developed, well nourished patient who is awake, alert, sp4 and in no acute distress. Physical deconditioning from prolonged immobility. Back: No spinal tenderness. No costovertebral tenderness. Skin: Warm, dry with normal turgor. Normal color with no rashes, no lesions, and no evidence of cellulitis. MS/ Extremity: Pulses equal, no cyanosis. Neurovascular intact. Chronic contracture of the left hip associated with chronic. Neuro: Awake and alert, GCS 15, oriented to person, place, time, and situation. Cranial nerves II-XII grossly intact. Motor strength 5/5 in all extremities. Sensory grossly intact. Psych: Awake, alert, with orientation to person, place and time. Behavior, mood, and affect are within normal limits. 23:01 MS/ Extremity: Pulses equal, no cyanosis. Neurovascular intact. Changes associated sp4 with chronic immobility Vital Signs: 21:38 BP 152 / 99; Pulse 127; Resp 18; Temp 97.9; Pulse Ox 100% ; Pain 10/10; mb9 21:38 Weight 113.4 kg; Height 5 ft. 8 in. ; mb9 21:38 Body Mass Index 38.01 (113.40 kg, 172.72 cm) mb9 21:38 Pain Scale: Adult mb9 MDM: 21:44 Patient medically screened. sp4 23:01 Differential diagnosis: Fracture Scoliosis spinal injury, sprain. Data reviewed: sp4 radiologic studies, CT scan. ED course: CT revealed severe left hip osteoarthritis and no acute lumbar spine abnormality, mild lower lumbar spondylosis and a form of bulging disc material, no acute fractures, nonspecific enlarged pelvic lymphadenopathy.. 08/01 21:42 Order name: CT Pelvis wo Cont; Complete Time: 22:48 sp4 08/01 21:42 Order name: CT Lumbar Spine Wo Con; Complete Time: 22:48 sp4 Administered Medications: 22:41 Drug: Cyclobenzaprine PO 10 mg Route: PO; lg3 22:41 Drug: Ondansetron PO 4 mg Route: PO; lg3 22:41 Drug: York PO 10 mg-325 mg 1 tabs Route: PO; lg3 22:41 Drug: Ketorolac IM 60 mg Route: IM; Site: right deltoid; lg3 Disposition Summary: 08/01/22 23:14 Discharge Ordered Location: Home sp4 Problem: new sp4 Symptoms: have improved sp4 Condition: Stable sp4 Diagnosis - Fall from non-moving wheelchair sp4 - Contusion of hip sp4 - Acute fall at home, left hip contusion, left hip chronic arthritis, exacerbation of sp4 chronic pain Followup: sp4 - With: Rao Marrero MD - When: 10 - 14 days - Reason: Recheck today's complaints Forms: - Medication Reconciliation Form sp4 - Thank You Letter sp4 - Antibiotic Education sp4 - Prescription Opioid Use sp4 Signatures: Dispatcher [employer] Malissa Stauffer RN RN lg3 Divya Elkins RN RN mb9 Daryl Massey MD MD sp4
--- NOTE | 2022-08-01 23:15 | ER ---
Nurse's Notes [facility] Name: Sal Gomez Age: 22 yrs Sex: Male : 2000 Arrival Date: 08/01/2022 Time: 21:33 Bed 8 Private MD: Diagnosis: Fall from non-moving wheelchair;Contusion of hip;Acute fall at home, left hip contusion, left hip chronic arthritis, exacerbation of chronic pain Presentation: 08/01 21:38 Chief complaint: Patient states: "I had pain in my back this morning and fell on my mb9 left hip while playing around and popping wheeies in my wheelchair. It's hard to take a deep breathe bc of the pain". Coronavirus screen: At this time, the client does not indicate any symptoms associated with coronavirus-19. Ebola Screen: No symptoms or risks identified at this time. Initial Sepsis Screen: Does the patient meet any 2 criteria? No. Patient's initial sepsis screen is negative. Does the patient have a suspected source of infection? No. Patient's initial sepsis screen is negative. Risk Assessment: Do you want to hurt yourself or someone else? Patient reports no desire to harm self or others. Onset of symptoms was August 01, 2022. 21:38 Method Of Arrival: EMS: [facility] mb9 21:38 Acuity: DANICA 4 mb9 Triage Assessment: 21:44 General: Appears uncomfortable, Behavior is crying. Pain: Complains of pain in back and mb9 hip. Neuro: Level of Consciousness is awake, alert, obeys commands, Oriented to person, place, time, situation, Appropriate for age. Cardiovascular: Patient's skin is warm and dry. Respiratory: Airway is patent Respiratory effort is even, unlabored, Respiratory pattern is regular, symmetrical. GI: No signs and/or symptoms were reported involving the gastrointestinal system. : No signs and/or symptoms were reported regarding the genitourinary system. Derm: Skin is pink, warm \\T\\ dry. Musculoskeletal: Range of motion: intact in all extremities. Historical: - Home Meds: 21:41 carvedilol 25 mg Oral tab [Active]; Zoloft 25 mg Oral tab 1 tab once daily [Active]; mb9 metoprolol tartrate 25 mg Oral tab 1 tab 2 times per day [Active]; metformin 500 mg Oral tab 1 tab 2 times per day [Active]; sertraline 50 mg Oral tab 1 tab once daily [Active]; Zofran 4 mg Oral tab 1 tab 4 times per day [Active]; trazodone 50 mg Oral tab 2 tabs once daily [Active]; gabapentin 300 mg Oral tab three times a day [Active]; Risperdal 0.5 mg Oral tab 1 tab once daily [Active]; Creon 24,000-76,000 -120,000 unit Oral cpDR 3 caps 3 times per day [Active]; prednisone 50 mg Oral tab once daily [Active]; - PMHx: 21:41 borderline personlity disorder; Cerebrovascular accident; necrotizing pancreatitis; mb9 Rheumatoid Arthritis; PTSD; Lupus erythematosus; Hypertensive disorder; - PSHx: 21:41 Appendectomy; Hip surgery; Multiple abdominal surgeries; mb9 - Immunization history:: Adult Immunizations up to date. - Social history:: Smoking status: Reported history of juuling and/or vaping. - Family history:: not pertinent. Assessment: 21:44 Reassessment: see triage assessment. mb9 22:04 Reassessment: pt taken to CT via wheelchair. mb9 Vital Signs: 21:38 BP 152 / 99; Pulse 127; Resp 18; Temp 97.9; Pulse Ox 100% ; Pain 10/10; mb9 21:38 Weight 113.4 kg; Height 5 ft. 8 in. ; mb9 21:38 Body Mass Index 38.01 (113.40 kg, 172.72 cm) mb9 21:38 Pain Scale: Adult mb9 ED Course: 21:33 Patient arrived in ED. ag3 21:37 Daryl Massey MD is Attending Physician. sp4 21:41 Triage completed. mb9 21:43 Arm band placed on. mb9 22:16 CT Pelvis wo Cont In Process Unspecified. EDMS 22:16 CT Lumbar Spine Wo Con In Process Unspecified. EDMS 23:04 Rao Marrero MD is Referral Physician. sp4 Administered Medications: 22:41 Drug: Cyclobenzaprine PO 10 mg Route: PO; lg3 22:41 Drug: Ondansetron PO 4 mg Route: PO; lg3 22:41 Drug: Hughes PO 10 mg-325 mg 1 tabs Route: PO; lg3 22:41 Drug: Ketorolac IM 60 mg Route: IM; Site: right deltoid; lg3 Outcome: 23:14 Discharge ordered by . sp4 Signatures: Dispatcher [employer] Chanel Serrato Lacie, RN RN lg3 Divya Elkins RN RN mb9 Daryl Massey MD MD sp4
[2022-08-02 08:27] VITALS: BP 152/99; TEMP 97.9; O2SAT 100
== END 2022-08-01 23:27 | disposition home or self-care (01) ==
LOC: ER 21:31
DX: S70.02XA Contusion of left hip, initial encounter (principal); M16.12 Unilateral primary osteoarthritis, left hip; W05.0XXA Fall from non-moving wheelchair, initial encounter; I10 Essential (primary) hypertension; M54.50 Low back pain, unspecified; Z86.73 Personal history of transient ischemic attack (TIA), and cerebral infarction without residual deficits
CPT/HCPCS: 72131; 72192; Q0162

== ENCOUNTER 2022-08-26 21:20 | Inpatient (IN) | payer OTHER ==
[2022-08-26] MEDS ORDERED: predniSONE 10 MG TAB ONE (21:42)
[2022-08-26] MEDS ORDERED: FAMOTIDINE 20 MG TAB ONE (21:42)
[2022-08-26] MEDS ORDERED: DIPHENHYDRAMINE 25 MG TAB/CAP ONE (21:42)
--- OUTSIDE RECORDS SUMMARY | 2022-08-26 21:59 | XMS REPORT | Continuity of Care Document ---
:2000 Author Organization [facility] t Address [address] [place] [address] [address] [place] [address] Care Team Providers Name Role Phone Pcp, Patient Does Not Have A Primary Care Physician [phone] 00-0000 WILLARD CROUCH Attending Clinician Unavailable WILLARD CROUCH EMILE Attending Clinician Unavailable [id number] Attending Clinician Unavailable Stefany Crabtree MD Attending Clinician KAYLA THOMPSON Attending Clinician Unavailable Karthik Hsieh MD Attending Clinician [phone] Vernell Gonzalez MD Attending Clinician [phone] Melissa Leung MD Attending Clinician Kayla Thompson MD Attending Clinician Dyllan Romero MD Attending Clinician JUAN JOSÉ GARCIA Attending Clinician Unavailable Estrada Sinclair MD Attending Clinician Juan José Garcia MDbeth Attending Clinician Cecil MANUEL, Corrie Attending Clinician Doctor Unassigned, Marvell Attending Clinician Unavailable ANETA GUTIERREZ Attending Clinician Unavailable Aneta Gutierrez DO Attending Clinician SILVIO RASCON Attending Clinician Unavailable Abiodun MANUEL, Silvio Mccray Attending Clinician Masood MANUEL, Cy Attending Clinician Willard Crouch Attending Clinician Unavailable IRINA BENITEZ Attending Clinician Unavailable Estrada MANUEL, Gricelda Galnido Attending Clinician Gabriel MANUEL, Nilsa Graham Attending Clinician Deshawn MANUEL, Keron Marino Attending Clinician aGlo MANUEL, Shama Angulo Attending Clinician Eli MANUEL, Irina Attending Clinician Tamia Jha Attending Clinician Hallie MANUEL, Marck Johnson Attending Clinician [phone] Lissette MANUEL, Amado Attending Clinician Shawn Lamar Attending Clinician Millie Gomez MD Attending Clinician BETHANY DURHAM Attending Clinician Unavailable Laith MANUEL, Khushi Goode Attending Clinician [phone] Bethany Durham MD Attending Clinician Suhail Man MD Attending Clinician [phone] AMADO GOYAL Attending Clinician Unavailable DOUG JOSHI Attending Clinician Unavailable SUHAIL MAN Attending Clinician Unavailable Kimmy Nunn MD Attending Clinician Kathy Fernandez MD Attending Clinician [phone] Cherri MANUEL, Aravind Ordaz Attending Clinician Vicki MANUEL, Ary Hargrove Attending Clinician [phone] Victor M MANUEL, Mana Mireles Attending Clinician Maura MANUEL, Rose Hardy Attending Clinician Karen MANUEL, Oren Attending Clinician Alisa MANUEL, Rebecca Smith Attending Clinician BEAR OSPINA Attending Clinician Unavailable TIWILLARD ENCARNACION, WILLARD Admitting Clinician Unavailable [id number] Admitting Clinician Unavailable VERNELL GONZALEZ Admitting Clinician Unavailable CORRIE CESAR Admitting Clinician Unavailable Cecil MANUEL, Corrie Admitting Clinician ANETA GUTIERREZ Admitting Clinician Unavailable SILVIO RASCON Admitting Clinician Unavailable Ti, Willard Admitting Clinician Unavailable GRICELDA ARTEAGA Admitting Clinician Unavailable NILSA RIOS Admitting Clinician Unavailable BETHANY DURHAM Admitting Clinician Unavailable KNOW, DOES_NOT Admitting Clinician Unavailable CY CORREIA Admitting Clinician Unavailable Payers Payer Name Policy Type Policy Number Effective Date Expiration Date S jonh CIG CIG [id number] [facility] [id number] [facility] [id number] GENERIC-CIGNA - [id number] 2021 2021 CIGNA 00:00:00 00:00:00 [facility] [id number] [facility]-MED[facility] - [id number] MEDICAID MEDICAID [place] [id number] 2021 00:00:00 Problems Condition Condition Condition Status Onset Resolution Last Treating Co mments Source Name Details Category Date Date Treatment Clinician Date Hx of Hx of Disease [facility]urre [facility] bacterial bacterial nce 05-26 [facility] endocardit endocardit 00:00: Me dical is is 00 Center Abdominal Abdominal Disease Active 2021-05 Uni vers pain pain 0-28 ity of 00:00: [place] [id number] Medical Branch Obesity Obesity Disease Active 2021-05 Univers (BMI (BMI 0-28 ity of 30-39.9) 30-39.9) 00:00: [place] 00 [facility] Branch Abscess Abscess Disease Active 2021-[address] [facility] between between 0-20 [facility] intestinal intestinal 00:00: Me dical loops loops 00 Center Abscess Abscess Disease Active [facility] 9[facility]08 [facility] 00:[facility]: Medical 00 Center Intra-abdo Intra-abdo Disease Recurre [facility] modesta modesta nce 7-21 [facility] abscess abscess 00:00: Medical 00 [...] 4-13 [facility] (>16k) (>16k) 00:00: Medical 00 [place] Pancytopen Pancytopen Disease Active [facility] ia ia 4-13 [facility] 00:00: Medical 00 [place] Rheumatoid Rheumatoid Disease Recurre [facility] arthritis arthritis nce 4-09 [facility] involving involving 00:00: Medi [place]oreen multiple multiple 00 Center sites sites Pre-diabet Pre-diabet Disease Active [facility] es es 4-09 [facility] 00:00: Medical 00 Center Hx of TIA Hx of TIA Disease Active [facility] (transient (transient 409 Jessica kes ischemic ischemic 00:00: Medica l attack) attack) 00 Center and stroke and stroke SLE SLE Disease Recurre [facility] (systemic (systemic nce 4-08 [facility] 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:00: Medical erythemato erythemato 00 Ce nter margot margot related related syndrome) syndrome) Bipolar Bipolar Disease Recurre [facility] disorder disorder nce 4-08 [facility] 00:[facility]: Medical 00 Center Acute Acute Disease Active [facility] biliary biliary 4-08 [facility] pancreatit pancreatit 00:00: Me dical is is 00 Center Hyperbilir Hyperbilir Disease Active [facility] ubinemia ubinemia 4-08 [facility] 00[facility]00: Medical 00 [place] Elevated Elevated Disease Active [facility] LFTs LFTs 4-08 [facility] 00:00: Medical 00 [place] Essential Essential Disease Active [facility] hypertensi hypertensi 4-08 [facility] on on 00:00: Medical 00 Center Allergies, Adverse Reactions, Alerts Allergy Allergy Status Severity Reaction(s) Onset Inactive Treating Comm ents Source Name Type Date Date Clinician ADHESIVE Drug Active Rash 2021-05 Univers Class 0-28 ity of 00:00: [place] 00 [facility] Branch Adhesive Propensi Active Rash 2021-05 Univer s ty to 0-28 ity of adverse 00:00: [place] reaction 00 [facility] s Branch Adhesive Propensi Active 2021-[address] [facility] Tape ty to 0-21 [facility] adverse 00:00: Medical reaction 00 [place] s ADHESIVE Allergy Active 2021-[address] [facility] TAPE 0-21 [facility] 00:00: Medical 00 [place] NO KNOWN Drug Active Univers ALLERGIE Class ity of S [facility] NO KNOWN Allergy Active [facility] ALLERGIE [facility] Family History Family Member Diagnosis Comments Start Date Stop Date Source Natural father Drug abuse [facility] Natural mother Drug abuse [facility] Social History Social Habit Start Date Stop Date Quantity Comments Source History [facility] Non-Med Medical Center History of Passive smoker University of tobacco use [facility] Tobacco use and 2022-03-16 2022-03-16 User of smokeless Un iversity of exposure 00:00:00 00:00:00 tobacco [facility] Exposure to 2022-03-04 2022-03-14 Not sure University of SARS-CoV-2 00:00:00 14:36:00 [facility] (event) Branch Alcohol intake 2022-03-08 2022-03-08 Ex-drinker [facility] es 00:00:00 00:00:00 (finding) Medical Center History [facility] 2021-12-08 2021-12-[address] [facility] Transport Med 00:00:00 00:00:[address] History [facility] 2021-12-08 2021-12-[address] [facility] Housing Unable to 00:00:00 00:00:00 Medical Center Pay History [facility] 2021-12-08 2021-12-[address] [facility] Homeless 00:00:00 00:00:00 Medical Center Last Year History SDVT 2021-08-26 2021-08-[address] [facility] Housing Places 00:00:00 00:00:00 Medical Ce nter Lived Sex Assigned At 2000 [address] [facility] 00:00:00 00:00:00 Medical Center Smoking Status Start Date Stop Date Source Tobacco smoking [facility] consumption unknown Medical Bran Occasional tobacco smoker [facility] 2021-12-08 00:00:00 2021-12-[address] [facility] Medical 00:00:00 Center Medications Ordered Filled Start Stop Current Ordering Indication Dosage Frequency Signature Comments Components Source Medication Medication Date Date Medication? Clinician (SIG) Name Name atovaquone Yes 750mg QD Take [address] [facility] (MEPRON) 1-18 (750 mg [facility] 750 mg/5 mL 00:00: total) by Generic Media 00 mouth Center daily While on high dose steroids. atovaquone 0 Yes 750mg QD Take [address] (MEPRON) 1-18 (750 mg [facility] 750 mg/5 mL 00:00: total) by Generic Media mouth Center daily While on high dose steroids. atovaquone 0 Yes 750mg QD Take [address] (MEPRON) 1-18 (750 mg [facility] 750 mg/5 mL 00:00: total) by Generic Media mouth Center daily While on high dose [...] daily with Ce nter tablet breakfast. sertraline 2023-0 Yes 50mg QD Take [address] (ZOLOFT) 50 1-17 by mouth Luke s MG tablet 15:29: daily. Medica l 24 Center risperiDONE 2023-0 Yes .5mg QD Take 0.[address] (RisperDAL) 1-17 mg by [facility] 0.5 MG 15:29: mouth Medical tablet 24 daily. Center hydrOXYchlo 2023-0 Yes 200mg Q.5D Take [address] roQUINE 1-17 mg by [facility] (PLAQUENIL) 15:29: mouth 2 Med ical 200 mg 24 (two) Center tablet times daily. pantoprazol 2023-0 Yes 40mg QD Take [address] e 1-17 by mouth [facility] (PROTONIX) 15:29: daily. Medic al 40 MG 24 Center tablet traZODone 3-0 Yes 150mg QD Take [address] [address] (DESYREL) 1-17 mg by [facility] 150 MG 15:29: mouth Medical tablet 24 nightly. Center metoprolol 3-0 Yes 25mg Q.5D Take [address] tartrate 1-17 by mouth 2 [facility] (LOPRESSOR) 15:29: (two) Medic al 25 MG 24 times Center tablet daily. metFORMIN 3-0 Yes 500mg Take [address] (GLUMETZA) 1-17 mg by [facility] 500 MG 15:29: mouth Medical (MOD) 24 hr 24 daily with Ce nter tablet breakfast. sertraline 2023-0 Yes 50mg QD Take [address] (ZOLOFT) 50 1-17 by mouth Luke s MG tablet 15:29: daily. Medica l 24 Center risperiDONE 2023-0 Yes .5mg QD Take 0.[address] (RisperDAL) 1-17 mg by [facility] 0.5 MG 15:29: mouth Medical tablet 24 daily. Center hydrOXYchlo 2023-0 Yes 200mg Q.5D Take [address] roQUINE 1-17 mg by [facility] (PLAQUENIL) 15:29: mouth 2 Med ical 200 mg 24 (two) Center tablet times daily. pantoprazol 2023-0 Yes 40mg QD Take [address] [facility] e 1-17 by mouth [facility] (PROTONIX) 15:29: daily. Medic al 40 MG 24 Center tablet traZODone Yes 150mg QD Take [address] (DESYREL) 1-17 mg by [facility] 150 MG 15:29: mouth Medical tablet 24 nightly. [place] metoprolol Yes 25mg Q.5D Take 25 mg [...] MG 15:29: mouth Medical tablet 24 daily. [place] hydrOXYchlo Yes 200mg Q.5D Take [address] roQUINE 1-17 mg by [facility] (PLAQUENIL) 15:29: mouth 2 Med ical 200 mg 24 (two) Center tablet times daily. pantoprazol Yes 40mg QD Take 40 mg [facility] [...] 00:00 daily . Me dical 19 :00 [place] predniSONE Yes Take 35mg [facility] (DELTASONE) 1-17 PO daily x Jessica kes 5 MG tablet 00:00: 7 days Medi doreen 00 then taper Center by 5mg every week. predniSONE 2022-0 Yes Take 35mg [facility] (DELTASONE) 1-17 PO daily x Jessica kes 5 MG tablet 00:00: 7 days Medi doreen 00 then taper Center by 5mg every week. predniSONE 3-0 Yes Take 35mg [facility] (DELTASONE) 1-17 PO daily x Jessica kes 5 MG tablet 00:00: 7 days Medi doreen 00 then taper Center by 5mg every week. oxyCODONE 2022-0 3- No 15mg Take 1 [facility] (ROXICODONE 1-17 -27 tablet (15 L ukes ) 15 MG 00:00: 23:59 mg total) Medi doreen immediate 00 :00 by mouth Center release every 4 tablet (four) hours as needed for up to 10 days. Max Daily Amount: 90 mg oxyCODONE 2022-0 2022- No 15mg Take 1 [facility] (ROXICODONE 1-17 -27 tablet (15 L ukes ) 15 MG 00:00: 23:59 mg total) Medi doreen immediate 00 :00 by mouth Center release every 4 tablet (four) hours as needed for up to 10 days. Max Daily Amount: 90 mg oxyCODONE 2022-0 2022- No 15mg Take 1 [facility] t (ROXICODONE 1-17 -27 tablet (15 L ukes ) 15 MG 00:00: 23:59 mg total) Medi doreen immediate 00 :00 by mouth Center release every 4 tablet (four) hours as needed for up to 10 days. Max Daily Amount: 90 mg enoxaparin 2022-0 2022- No 40mg QD Inject [address] (LOVENOX) 05-26-07 mg [facility] 40 mg/0.4 02:51: 00:00 subcutaneo M edical mL Syrg 04 :00 ly Center daily. enoxaparin 2022-0 2022- No 40mg QD Inject [address] (LOVENOX) 05-26-07 mg [facility] 40 mg/0.4 02:51: 00:00 subcutaneo M edical mL Syrg 04 :00 usly Center daily. enoxaparin No 40mg QD Inject [address] (LOVENOX) 1-07 01-07 mg [facility] 40 mg/0.4 02:51: 00:00 subcutaneo M edical mL Syrg 04 :00 [facility] daily. No known 2021-05 No No known Unive rs medications 0-31 medication it y of 14:29: s [place] [id number] Medical Branch ondansetron 2021-05 Yes 8mg 8 mg, Unive [...] s mL 00 First dose Medical on [place] Branch 03/18/22 at 1045, Until Discontinu ed, Routine magnesium 2021-05 No 4g 4 g, IV Univ ers sulfate in 0-30 10-30 Piggyback, it y of water 4 15:00: 14:15 ONCE, 1 [place] gram/50 mL 00 :00 dose, On Medic al (8 %) IV [place] Piggyback 4 03/18/22 g at 1000, Routine ondansetron 2021-05 No 8mg 8 mg, Univ ers (ZOFRAN-ODT 0-30 10-30 Oral, ity of ) 00:36: 15:40 Q6HPRN, [place] disintegrat 34 :15 Starting Medi doreen ing tablet on [facility] Branch 8 mg 03/17/22 at 1936, Until 03/18/22 at 1040, Routine, Nausea and Vomiting (N/V) lisinopriL 2021-05- No [id number] 5mg Take 1 Univers 5 mg tablet 0-30 11-30 tablet by it y of 00:00: 05:59 mouth in [place] 00 :00 the Medical morning Branch for 30 days. pantoprazol 2021-05- No [id number] 40mg Take 1 Univers e 40 mg EC 0-30 11-30 tablet by ity of tablet 00:00: 05:59 mouth in [place] 00 :00 the Medical morning Branch for 30 days. risperiDONE 2021-05- No [id number] .5mg Take 1 Univers 0.5 mg 0-30 11-30 tablet by ity of tablet 00:00: 05:59 mouth [place] 00 :00 every Medical morning Branch for 30 days. SERTraline 2021-05- No [id number] 50mg Take 1 Univers 50 mg 0-30 11-30 tablet by ity of tablet 00:00: 05:59 mouth in [place] 00 :00 the Medical morning Branch for 30 days. lisinopriL 2021-05- No [id number] 5mg Take 1 Univers 5 mg tablet 0-30 11-30 tablet by it y of 00:00: 05:59 mouth in [place] 00 :00 the [facility] morning Branch for 30 days. pantoprazol 2021-05- No [id number] 40mg Take 1 Univers e 40 mg EC 0-30 11-30 tablet by ity of tablet 00:00: 05:59 mouth in [place] 00 :00 the [facility] morning Branch for 30 days. risperiDONE 2021-05 No [id number] .5mg Take 1 Univers 0.5 mg 0-30 11-30 tablet by ity of tablet 00:00: 05:59 mouth [place] 00 :00 every [facility] Branch for 30 days. SERTraline 2021-05- No [id number] 50mg Take 1 Univers 50 mg 0-30 11-30 tablet by ity of tablet 00:00: 05:59 mouth in [place] 00 :00 the [facility] Branch for 30 days. lipase-prot 2021-05- No [id number] 2{capsu Take 2 Univers ease-amylas 0-30 11-14 le} capsules ity of e 00:00: 05:59 by mouth [place] 12,000-38,0 00 :00 in the Medica l 00 -60,000 morning Branch unit and 2 capsule capsules at noon and 2 capsules in the evening. Take with meals. Do all this for 14 days. docusate 2021-05- No [id number] 100mg Take 1 Univers 100 mg 0-30 11-10 capsule by ity of capsule 00:00: 05:59 mouth in [place] 00 :00 the Medical morning Branch for 10 days. gadobenate 2021-05 No [id number] .2mL/kg 19.96 mL Univers dimeglumine 03-17 (0.2 mL/kg i ty of (MULTIHANCE 16:00: 16:00 ?99.8 kg), [place] -20 mL) 00 :00 Intravenou Medica l injection s, ONCE, 1 Bran ch 19.96 mL dose, On [facility] 03/17/22 at 1100, Routine LORazepam 2021-05 No 2mg 2 mg, Univer s (ATIVAN) 003-17 Oral, ity of tablet 2 mg 16:00: 15:12 ONCE[place] 1 [place] dose, On [facility] Branch 03/17/22 at 1100, Routine HYDROcodone 2021-05 Yes 1{tbl} 1 tablet, Univers -acetaminop 0 Oral, ity of hen (NORCO 14:12: Q6HPRN, [place] 5) 5-325 mg 34 Starting Medi doreen tablet 1 on [facility] Branch tablet 03/17/22 at 0912, Until Discontinu ed, Routine, Pain (scale 4-6) lisinopriL 2021-05 Yes 5mg 5 mg, Univer s (PRINIVIL,Z 0 Oral, ity of ESTRIL) 14:00: DAILY, [place] tablet 5 mg 00 First dose Me dical on Sat Branch 03/17/22 at 0900, Until Discontinu ed, Routine pantoprazol 2021-05 Yes 40mg 40 mg, Univ ers e 0 Oral, ity of (PROTONIX) 14:00: DAILY, [place] EC tablet 00 First dose Medi doreen 40 mg on Sat Branch 03/17/22 at 0900, Until Discontinu ed, Routine KCL 2021-05 No 40meq 40 mEq, Univers (KLOR-CON 03-17 Oral, ity of M20) tablet 13:00: 13:03 ONCE, 1 [place] 40 mEq 00 :00 dose, On Medical [facility] Branch 03/17/22 at 0800, Routine HYDROcodone 2021-05- No 1{tbl} 1 tablet, Univers -acetaminop 003-17 Oral, ity of hen (NORCO 02:18: 02:26 [...] Until Discontinu ed, Routine traZODone 2021-05- No [id number] 50mg Take 1 Univers 50 mg 0-29 11-29 tablet by ity of tablet 00:00: 05:59 mouth at [place] 00 :00 bedtime Medical for 30 Branch days. ondansetron 2021-05 No [id number] 4mg Take 1 Univers 4 mg tablet 0-29 -29 tablet by it y of 00:00: 05:59 mouth [place] 00 :00 every 8 Medical (eight) Branch hours as needed for Nausea and Vomiting (N/V) for up to 30 days. traZODone 2021-05 No [id number] 50mg Take 1 Univers 50 mg 0-29 11-29 tablet by ity of tablet 00:00: 05:59 mouth at [place] 00 :00 bedtime Medical for 30 Branch days. ondansetron 2021-05- No [id number] 4mg Take 1 Univers 4 mg tablet [...] on Sat [facility] 03/16/22 Branch at 0900, Until Discontinu ed, [...] [place] mg 19 :53 Starting Medical on Sat03/16/22 at 0431, Until 03/17/22 at 2120, Routine, [...] s mg 00 First dose Medical on Sat03/16/22 at 0245, Until Discontinu ed, Routine lactated 2021-05 Yes 1000mL at 125 Unive rs ringers IV 0- mL/hr, ity of infusion 07:00: 1,000 mL, [place] 1,000 mL 00 IV Medical Infusion, Branch CONTINUOUS , Starting on Sat03/16/22 at 0200, Until Discontinu ed, Routine acetaminoph 2021-05- No 1{tbl} 1 tablet, Univers en-codeine 003-17 Oral, ity of (TYLENOL 06:56: 14:12 Q6HPRN, [place] #3) 300-30 37 :50 Starting Medic al mg tablet 1 on Fri Branch tablet 03/16/22 at 0156, Until 03/17/22 at 0912, Routine, Pain (scale 4-6) acetaminoph 2021-05 Yes 650mg 650 mg, Un hillary en 0- Oral, ity of (TYLENOL) 06:56: Q6HPRN, [place] tablet 650 35 Starting Medic al mg on Fri Branch 03/16/22 at 0156, Until Discontinu ed, Routine, Pain (scale 1-3) HYDROcodone 2021-05- No 1{tbl} 1 tablet, Univers -acetaminop 0-14 03- Oral, ity of hen (NORCO) 22:30: 22:20 ONCE, 1 [place] 10-325 mg 00 :00 dose, On Medica l tablet 1 Sat Branch tablet 03/14/22 at 1730, Routine iopamidol 2021-05- No [id number] 65mL 65 mL, Un hillary (ISOVUE 0-26 10-26 Intravenou ity o f 370-500 mL) 21:30: 21:30 s, ONCE, 1 [place] injection 00 :00 dose, On Medica l 65 mL Sat Branch 03/14/22 at 1630, Routine ondansetron 2021-05- No 4mg 4 mg, Slow Univers (ZOFRAN 0-14 03- IV Push, ity of (PF)) 20:45: 20:44 ONCE, 1 [place] injection 4 00 :00 dose, On Medi doreen mg Wed Branch 03/14/22 at 1545, JON morpHINE (4 2021-05- No 4mg 4 mg, Slow Univers mg/mL) 0- 10-26 IV Push, ity of injection 4 20:45: [...] infection or colonizati on cefdinir 2021-05- No [id number] 300mg Take 1 Un hillary 300 mg 0-26 11-10 capsule by ity of capsule 00:00: 05:59 mouth [place] 00 :00 every 12 [facility] Branch hours for 14 days. metroNIDAZO 2021-05- No [id number] 500mg Take 1 Univers LE 500 mg 0-26 11-10 tablet by ity of tablet 00:00: 05:59 mouth in [place] 00 :00 the [facility] morning Branch and 1 tablet in the evening. Do all this for 14 days. fluconazole 2021-05- No [id number] 150mg Take 1 Univers 150 mg 0-26 11-10 tablet by ity of tablet 00:00: 05:59 mouth in [place] 00 :00 the [facility] morning Branch for 14 doses. cefdinir 2021-05- No [id number] 300mg Take 1 Un hillary 300 mg 0-26 10-29 capsule by ity of capsule 00:00: 00:00 mouth [place] 00 :00 every 12 Medical (twelve) Branch hours for 14 days. metroNIDAZO 2021-05- No [id number] 500mg Take 1 Univers LE 500 mg 0-26 10-29 tablet by ity of tablet 00:00: 00:00 mouth in [place] 00 :00 the [facility] morning Branch and 1 tablet in the evening. Do all this for 14 days. fluconazole 2021-05- No [id number] 150mg Take 1 Univers 150 mg 0-26 10-29 tablet by ity of tablet 00:00: 00:00 mouth in [place] 00 :00 the [facility] for 14 doses. enoxaparin 2021-05 Yes 40mg QD Inject [address] (LOVENOX) 0-25 mg [facility] 40 mg/0.4 15:17: subcutaneo Me dical mL Syrg 26 [facility] Center daily. enoxaparin 2021-05 Yes 40mg QD Inject [address] (LOVENOX) 0-25 mg [facility] 40 mg/0.4 15:17: subcutaneo Me dical mL Syrg 26 [facility] Center daily. enoxaparin 2021-05 Yes 40mg QD Inject [address] (LOVENOX) 0-25 mg [facility] 40 mg/0.4 15:17: subcutaneo Me dical mL Syrg 26 [facility] Center daily. fluconazole 2021-05- No 400mg QD [...] Center mouth daily for 26 days. fluconazole 2021-05 No 400mg QD Take [address] (DIFLUCAN) 0-25 11-20 tablets [facility] 200 MG 00:00: 23:59 (400 mg Medical tablet 00 :00 total) by Center mouth daily for 26 days. predniSONE 2021-05 No 7.5mg QD Take [...] Center mouth daily for 5 days. risperiDONE 2021-05 No .5mg QD Take 0.[address] (RisperDAL) 0-24 10-24 mg by [facility] 0.5 MG 12:03: 00:00 mouth Medical tablet 30 :00 daily. Center metFORMIN 2021-05 No 500mg Take [address] (GLUCOPHAGE 0-24 10-24 mg by [facility] ) 500 MG 12:03: 00:00 mouth 2 Medic al tablet 30 :00 (two) Center times daily with breakfast and dinner. traZODone 2021-05 No 100mg QD Take [address] (DESYREL) 0-24 10-24 mg by [facility] 100 MG 12:03: 00:00 mouth Medical tablet 30 :00 nightly. Center risperiDONE 2021-2021- No .5mg QD Take 0.[address] (RisperDAL) 0-24 10-24 mg by [facility] 0.5 MG 12:03: 00:00 mouth Medical tablet 30 :00 daily. [place] metFORMIN 2021-05- No 500mg Take [address] (GLUCOPHAGE 0-24 10-24 mg by [facility] ) 500 MG 12:03: 00:00 mouth 2 Medic al tablet 30 :00 (two) Center times daily with breakfast and dinner. traZODone 2021-05- No 100mg QD Take [address] (DESYREL) 0-24 10-24 mg by [facility] 100 MG 12:03: 00:00 mouth Medical tablet 30 :00 nightly. [place] risperiDONE 2021-05- No .5mg QD Take 0.[address] (RisperDAL) 0-24 10-24 mg by [facility] 0.5 MG 12:03: 00:00 mouth Medical tablet 30 :00 daily. [place] metFORMIN 2021-05- No 500mg Take [address] (GLUCOPHAGE 0-24 10-24 mg by [facility] ) 500 MG 12:03: 00:00 mouth 2 Medic al tablet 30 :00 (two) Center times daily with breakfast and dinner. traZODone 2021-2021- No 100mg QD Take [address] (DESYREL) 0-24 10-24 mg by [facility] 100 MG 12:03: 00:00 mouth Medical tablet 30 :00 nightly. [place] risperiDONE 2021-05- No .5mg QD Take 0.[address] (RisperDAL) 0-24 10-24 mg by [facility] 0.5 MG 12:03: 00:00 mouth Medical tablet 30 :00 daily. [place] metFORMIN 2021-05- No 500mg Take [address] (GLUCOPHAGE 0-24 10-24 mg by [facility] ) 500 MG 12:03: 00:00 mouth 2 Medic al tablet 30 :00 (two) Center times daily with breakfast and dinner. traZODone 2021-2021- No 100mg QD Take [address] (DESYREL) 0-24 10-24 mg by [facility] 100 MG 12:03: 00:00 mouth Medical tablet 30 :00 nightly. [place] risperiDONE 2021-05- No .5mg QD Take 0.[address] (RisperDAL) 0-24 10-24 mg by [facility] 0.5 MG 12:03: 00:00 mouth Medical tablet 30 :00 daily. [place] metFORMIN 2021-05- No 500mg Take [address] (GLUCOPHAGE 0-24 10-24 mg by [facility] ) 500 MG 12:03: 00:00 mouth 2 Medic al tablet 30 :00 (two) Center times daily with breakfast and dinner. traZODone 2021-05- No 100mg QD Take [address] (DESYREL) 0-24 10-24 mg by [facility] 100 MG 12:03: 00:00 mouth Medical tablet 30 :00 nightly. [place] risperiDONE 2021-05- No .5mg QD Take 0.[address] (RisperDAL) 0-24 10-24 mg by [facility] 0.5 MG 12:03: 00:00 mouth Medical tablet 30 :00 daily. [place] metFORMIN 2021-05- No 500mg Take [address] (GLUCOPHAGE 0-24 10-24 mg by [facility] ) 500 MG 12:03: 00:00 mouth 2 Medic al tablet 30 :00 (two) Center times daily with breakfast and dinner. traZODone 2021-05- No 100mg QD Take [address] (DESYREL) 0-24 10-24 mg by [facility] 100 MG 12:03: 00:00 mouth Medical tablet 30 :00 nightly. [place] HYDROcodone 2021-05 Yes 1{tbl} Take 1 [facility] [...] tablet mouth 2 (two) times daily. HYDROcodone 2021-05- No 1{tbl} Take [address] [...] tablet mouth 2 (two) times daily. HYDROcodone 2021-05- No 1{tbl} Take [address] -acetaminop 0-24 01-07 tablet by Jessica emhta ([facility] 00:00: 00:00 mouth Medic al 5-325) 00 :00 every 6 Center 5-325 mg (six) per tablet hours as needed for Pain for up to 10 doses. Max Daily Amount: 4 tablets mycophenola 2021-05- No 180mg Q.5D Take [address] [facility] 0-[facility] -07 [facility] (MYFORTIC) 00:00: 00:00 (180 mg Med ical 180 MG EC 00 :00 total) by Cente r tablet mouth 2 (two) times daily. HYDROcodone 2021-05- No 1{tbl} Take [address] -acetaminop 0-12 06- tablet by Jessica mehta ([facility] 00:00: 00:00 mouth Medic al 5-325) 00 :00 every 6 Center 5-325 mg (six) per tablet hours as needed for Pain for up to 10 doses. Max Daily Amount: 4 tablets mycophenola 2021-05- No 180mg Q.5D Take [address] [facility] 0-12 06- tablet [facility] (MYFORTIC) 00:00: 00:00 (180 mg [...] (two) times daily for 27 days. metroNIDAZO 2021-2021- No 500mg Take 1 [facility] [...] (two) times daily for 27 days. gabapentin 2021-05 No 400mg Q.[id number] Take [address] [facility] (NEURONTIN) 0-24 - [id number] capsule [facility] 400 MG 00:00: 23:59 3D (400 mg Medical capsule 00 :00 total) by Center mouth 3 (three) times daily for 5 days. morphine 2021-05 No 30mg Take [address] [facility] (MS CONTIN) 0-24 03-17 tablet (30 L u[facility] 30 MG [...] for 5 days. gabapentin 2021-05- No 400mg Q.[id number] Take [address] [facility] (NEURONTIN) 0-24 - [id number] [facility] 400 MG 00:00: 23:59 3D [...] Q.5D Take [address] [facility] tartrate 0-24 03-17 tablet (25 [facility] (LOPRESSOR) 00:00: 23:59 [...] tablet daily for 5 days. risperiDONE 2021-05- No .5mg QD Take [address] [facility] [...] for 5 days. gabapentin 2021-05- No 400mg Q.[id number] Take [address] [facility] (NEURONTIN) 0-24 - [id number] [facility] 400 MG 00:00: 23:59 3D [...] QD Take [address] [facility] e 0-24 03-17 tablet (40 [facility] (PROTONIX) 00:00: 23:59 mg total) M edical 40 MG 00 :00 by mouth Center tablet daily for 5 days. risperiDONE 2021-05- No .5mg QD Take [address] [facility] (RisperDAL) 0-24 - tablet [facility] 0.5 MG 00:00: 23:59 (0.5 mg Medical tablet 00 :00 total) by Center mouth daily for 5 days. sertraline 2021-05- No 50mg QD Take [address] [facility] (ZOLOFT) 50 0-24 -29 tablet (50 [facility] MG tablet 00:00: 23:59 mg total) Me dical 00 :00 by mouth Center daily for 5 days. traZODone 2021-05- No 100mg QD Take [address] [facility] (DESYREL) 0-24 - tablet [facility] 100 MG 00:00: 23:59 (100 mg Medical tablet 00 :00 total) by Center mouth nightly for 5 days. gabapentin 2021-05- No 400mg Q.[id number] Take [address] [facility] (NEURONTIN) 0-24 - [id number] [facility] 400 MG 00:00: 23:59 3D (400 mg Medical capsule 00 :00 total) by Center mouth 3 (three) times daily for 5 days. morphine 2021-05 No 30mg Take [address] [facility] (MS CONTIN) 0-03-17 tablet (30 [facility] 30 MG 12 [...] for 5 days. gabapentin 2021-05 No 400mg Q.[id number] Take [address] [facility] (NEURONTIN) 003-17 [id number] [facility] 400 MG 00:00: 23:59 3D [...] 25mg Q.5D Take [address] [facility] tartrate 03-17 tablet (25 [facility] (LOPRESSOR) 00:00: 23:59 mg total) Medical 25 MG 00 :00 by mouth 2 Center tablet (two) times daily for 5 days. hydrOXYchlo 2021-05 No 200mg Q.5D Take [address] roQUINE 03-17 tablet [facility] (PLAQUENIL) 00:00: 23:59 (200 mg [...] mouth nightly for 5 days. gabapentin 2021-05 400mg Q.[id number] Take [address] [facility] (NEURONTIN) 0-24 - [id number] [facility] 400 MG 00:00: 23:59 3D (400 mg Medical capsule 00 :00 total) by Center mouth 3 (three) times daily for 5 days. morphine 2021-05 No 30mg Take [address] [facility] (MS CONTIN) 0-12 03- tablet (30 [facility] 30 MG 12 hr 00:00: 23:59 mg total) Medical tablet 00 :00 by mouth Center every 12 (twelve) hours for 5 days. Max Daily Amount: 60 mg metoprolol 2021-05 25mg Q.5D Take [address] [facility] tartrate [...] tablet daily for 5 days. risperiDONE 2021-05- No .5mg QD Take [address] [facility] [...] QD Take [address] [facility] (DELTASONE) - 10-06 tablets [facility] 2.5 MG 00:00: 23:59 (7.5 mg Medical tablet 00 :00 total) by Center mouth daily for 10 days. predniSONE 2021- No 7.5mg QD Take [address] [facility] (DELTASONE) 9- 10-06 tablets [facility] 2.5 MG 00:00: 23:59 (7.5 mg Medical tablet 00 :00 total) by Center mouth daily for 10 days. predniSONE 2021- No 7.5mg QD Take [address] [facility] (DELTASONE) - 10-06 tablets [facility] 2.5 MG 00:00: 23:59 (7.5 mg Medical tablet 00 :00 total) by Center mouth daily for 10 days. predniSONE 2021- 2022- No 7.5mg QD Take [address] [facility] (DELTASONE) 02-12- tablets [facility] 2.5 MG 00:00: 23:59 (7.5 mg Medical tablet 00 :00 total) by Center mouth daily for 10 days. fluconazole 2021-0 2022- No 200mg QD [...] mouth daily for 7 days. fluconazole 2021-0 202- No 200mg QD Take [address] [facility] (DIFLUCAN) 02-12 tablet [facility] 200 MG 00:00: 23:59 (200 mg Medical tablet 00 :00 total) by Center mouth daily for 7 days. fluconazole 2021-0 202- No 200mg QD Take [address] [facility] (DIFLUCAN) 02-12 tablet [facility] 200 MG 00:00: 23:59 (200 mg Medical tablet 00 :00 total) by Center mouth daily for 7 days. fluconazole 2021-0 2- No 200mg QD Take 1 [facility] [...] Center mouth daily for 7 days. lidocaine 2021-0 2022- No 1{patch Q24H Place 1 [facility] [...] HI St ate 9-25 10-24 tablets by Jarad (SENOKOT S) 00:00: 00:00 mouth 2 Me dical 8.6-50 mg 00 :00 (two) Center per tablet times daily. metroNIDAZO 202-0 2022- No 500mg Take 1 [facility] [...] capsule mouth 2 (two) times daily. ciprofloxac 2021- No 500mg Take 1 [facility] [...] Center per tablet times daily. metroNIDAZO 2021-0 2- No 500mg Take [address] [facility] [address] [facility] [...] capsule mouth 2 (two) times daily. ciprofloxac 2021- No 500mg Take 1 [facility] [...] Take [address] [facility] (FLAGYL) - 10-24 tablet [facility] 500 MG 00:00: 00:00 [...] (four) times daily for 10 days. traMADoL 2022-0 2022- No 100mg Q.25D Take 100 [facility] [...] (four) times daily for 10 days. traMADoL 2022-0 2022- No 100mg Q.25D Take 100 [facility] [...] days. Max Daily Amount: 400 mg methocarbam 2-0 2022- No 500mg Q.25D Take [address] oL 9-25 10-05 tablet [facility] (ROBAXIN) 00:00: 23:59 (500 mg Medi doreen 500 MG 00 :00 total) by Center tablet mouth 4 (four) times daily for 10 days. traMADoL 2022-0 2022- No 100mg Q.25D Take 100 [facility] [...] (four) times daily for 10 days. traMADoL 2021- No 100mg Q.25D Take [address] 100 mg Tab - 10-05 mg by [facility] 00:00: 23:59 mouth 4 Medical 00 :00 (four) Center times daily for 10 days. Max Daily Amount: 400 mg methocarbam 2021- No 500mg Q.25D Take [address] oL 9- 10-05 tablet [facility] (ROBAXIN) 00:00: 23:59 (500 mg Medi doreen 500 MG 00 :00 total) by Center tablet mouth 4 (four) times daily for 10 days. polyethylen 2021-2021- No 17g Q.5D Take [address] [facility] e glycol 9-11 02-28 by mouth 2 [facility] (GLYCOLAX) 00:00: 23:59 (two) Medic al 17 gram 00 :00 times Center packet daily for 3 days. polyethylen 2021-2021- No 17g Q.5D Take [address] [facility] e glycol -11 02-28 by mouth 2 [facility] (GLYCOLAX) 00:00: 23:59 (two) Medic al 17 gram 00 :00 times Center packet daily for 3 days. polyethylen 2021-2021- No 17g Q.5D Take [address] [facility] e glycol -25 -28 by mouth 2 [facility] (GLYCOLAX) 00:00: 23:59 (two) Medic al 17 gram 00 :00 times Center packet daily for 3 days. polyethylen 2021-0 2021- No 17g Q.5D Take [address] [facility] e glycol 9-25 -28 by mouth 2 [facility] (GLYCOLAX) 00:00: 23:59 (two) Medic al 17 gram 00 :00 times Center packet daily for 3 days. polyethylen 2021-0 2021- No 17g Q.5D Take [address] [facility] e glycol 9-25 -28 by mouth 2 [facility] (GLYCOLAX) 00:00: 23:59 (two) Medic al 17 gram 00 :00 times Center packet daily for 3 days. polyethylen 2021- No 17g Q.5D Take [address] [facility] e glycol 02-11 by mouth 2 [facility] (GLYCOLAX) 00:00: 23:59 (two) Medic al 17 gram 00 :00 times Center packet daily for 3 days. mycophenola 2-0 2022- No 500mg Q.5D Take [address] [facility] 8-17 -25 tablet [facility] (CELLCEPT) 00:00: 00:00 (500 mg Med ical 500 mg 00 :00 total) by Center tablet mouth 2 (two) times daily for 30 days. mycophenola 2-0 2022- No 500mg Q.5D Take [address] [facility] 8-17 -25 tablet [facility] (CELLCEPT) 00:00: 00:00 (500 mg Med ical 500 mg 00 :00 total) by Center tablet mouth 2 (two) times daily for 30 days. mycophenola 2021-0 2022- No 500mg Q.5D Take [address] [facility] -03 02-25 tablet [facility] (CELLCEPT) 00:00: 00:00 (500 mg Med ical 500 mg 00 :00 total) by Center tablet mouth 2 (two) times daily for 30 days. mycophenola 2021-0 2022- No 500mg Q.5D Take [address] [facility] 8-17 -25 [facility] (CELLCEPT) 00:00: 00:00 (500 mg Med ical 500 mg 00 :00 total) by Center tablet mouth 2 (two) times daily for 30 days. mycophenola 2-0 2022- No 500mg Q.5D Take [address] [facility] 8-17 -25 [facility] (CELLCEPT) 00:00: 00:00 (500 mg Med ical 500 mg 00 :00 total) by Center tablet mouth 2 (two) times daily for 30 days. mycophenola 2-0 2022- No 500mg Q.5D Take [address] [facility] 8-17 -25 [facility] (CELLCEPT) 00:00: 00:00 (500 mg Med ical 500 mg 00 :00 total) by Center tablet mouth 2 (two) times daily for 30 days. mycophenola 2022-0 2022- No 500mg Q.5D Take [address] [facility] 8-17 -16 tablet [facility] (CELLCEPT) 00:00: 23:59 (500 [...] mg total) daily for 30 days. DAPTOmycin 2-0 2022- No 800mg Q24H [...] 800mg Q24H Inject [address] [facility] (CUBICIN) 8 08-16 mg [facility] in sodium 00:00: 23:59 [...] Inject [address] [facility] 100 mg in 8 08-16 mg [facility] NS 0.9% 100 00:00: 23:59 intravenou Medical mL (V2B) 00 :00 sly daily Center IVPB for 7 days. DAPTOmycin 2021-0 2022- No 800mg Q24H Inject [address] [facility] (CUBICIN) 8- 08-16 mg [facility] in sodium 00:00: 23:59 intravenou M edical chloride 00 :00 sly daily Center (NS) for 7 NON-DEHP 50 days. ML IVPB ertapenem 2021-0 2021- No 1g Q24H Inject [address] (INVanz) 1 12-26-16 intravenou Jessica kes g in NS 100 00:00: 23:59 sly daily Medical mL (V2B) 00 :00 for 7 Center IVPB days. mICAFUNGin 2021-0 2021- No 100mg Q24H Inject [address] [facility] 100 mg in 12-26-16 mg [facility] NS 0.9% 100 00:00: 23:59 intravenou Medical mL (V2B) 00 :00 sly daily Center IVPB for 7 days. DAPTOmycin 2021-0 2021- No 800mg Q24H Inject [address] [facility] (CUBICIN) 12-26-16 mg [facility] in sodium 00:00: 23:59 intravenou M edical chloride 00 :00 sly daily Center (NS) for 7 NON-DEHP 50 days. ML IVPB ertapenem 2021-0 2- No 1g Q24H Inject 1 g C [...] Center IVPB for 7 days. predniSONE 2021- 2022- No 25mg QD Take [address] [facility] (DELTASONE) 12-26-08 tablets [facility] 5 MG tablet 00:00: 00:00 (25 mg Med ical 00 :00 total) by Center mouth daily for 30 days. predniSONE 2022-0 2022- No 25mg QD Take [address] [facility] (DELTASONE) 12-26-08 tablets [facility] 5 MG tablet 00:00: 00:00 (25 mg Med ical 00 :00 total) by Center mouth daily for 30 days. predniSONE 2022-0 2022- No 25mg QD Take [address] [facility] (DELTASONE) 12-26-08 tablets [facility] 5 MG tablet 00:00: 00:00 (25 mg Med ical 00 :00 total) by Center mouth daily for 30 days. predniSONE 2022-0 2022- No 25mg QD Take [address] [facility] (DELTASONE) 12-26-08 tablets [facility] 5 MG tablet 00:00: 00:00 (25 mg Med ical 00 :00 total) by Center mouth daily for 30 days. predniSONE 2022-0 2022- No 25mg QD Take [address] [facility] (DELTASONE) 12-26-08 tablets [facility] 5 MG tablet 00:00: 00:00 (25 mg Med ical 00 :00 total) by Center mouth daily for 30 days. predniSONE 2-0 2022- No 25mg QD Take [address] [facility] (DELTASONE) 12-26-08 tablets [facility] 5 MG tablet 00:00: 00:00 (25 mg Med ical 00 :00 total) by Center mouth daily for 30 days. predniSONE 2022-0 2022- No 25mg QD Take [address] [facility] (DELTASONE) 12-26-08 tablets [facility] 5 MG tablet 00:00: 00:00 (25 mg Med ical 00 :00 total) by Center mouth daily for 30 days. risperiDONE 2-0 Yes .5mg QD Take 0.[address] [facility] (RisperDAL) 8-08 mg by [facility] 0.5 MG 23:36: mouth Medical tablet 04 daily. Center metFORMIN 2-0 Yes 500mg Take [address] [facility] (GLUCOPHAGE 8-08 mg by [facility] ) 500 MG 23:36: mouth 2 Medica l tablet 04 (two) Center times daily with breakfast and dinner. traZODone 2-0 Yes 100mg QD Take [address] [facility] (DESYREL) 8-08 mg by [facility] 100 MG 23:36: mouth Medical tablet 04 nightly. [place] enoxaparin Yes 40mg QD Inject [address] (LOVENOX) 8-08 mg [facility] 40 mg/0.4 23:36: subcutaneo Me dical mL Syrg 04 usly Center daily. predniSONE 2021-0 2- No 50mg QD Take [address] [facility] (DELTASONE) 12-25 by mouth Jody es 50 MG 16:30: 00:00 daily. Medical tablet 18 :00 [place] predniSONE 2021-0 2022- No 50mg QD Take [address] [facility] (DELTASONE) 12-25- by mouth Jody es 50 MG 16:30: 00:00 daily. Medical tablet 18 :00 [place] predniSONE 2021-0 2021- No 50mg QD Take [address] [facility] (DELTASONE) 12-25- by mouth J[facility] es 50 MG 16:30: 00:00 daily. Medical tablet 18 :00 [place] predniSONE 2021-0 2022- No 50mg QD Take [address] [facility] (DELTASONE) 12-25 by mouth Jody es 50 MG 16:30: 00:00 daily. Medical tablet 18 :00 [place] predniSONE 2021-0 2- No 50mg QD Take [address] [facility] (DELTASONE) 12-25- by mouth J[facility] es 50 MG 16:30: 00:00 daily. Medical tablet 18 :00 [place] predniSONE 2021-0 2022- No 50mg QD Take [address] [facility] (DELTASONE) 12-25 by mouth J[facility] es 50 MG 16:30: 00:00 daily. Medical tablet 18 :00 [place] predniSONE 2021-0 2022- No 50mg QD Take [address] [facility] (DELTASONE) 12-25- by mouth J[facility] es 50 MG 16:30: 00:00 daily. Medical tablet 18 :00 [place] HYDROcodone Yes 1{tbl} Take [address] [facility] -acetaminop 12-25 tablet by Jody es hen ([facility]CO 00:00: mouth Medica l 5-325) 00 every 6 Center 5-325 mg (six) per tablet hours as needed for Pain for up to 10 doses. Max Daily Amount: 4 tablets HYDROcodone 2021-0 2022- No 1{tbl} Take [address] -acetaminop 8-08 10-24 tablet by Jessica mehta ([facility] 00:00: 00:00 mouth Medic al 5-325) 00 :00 every 6 Center 5-325 mg (six) per tablet hours as needed for Pain for up to 10 doses. Max Daily Amount: 4 tablets HYDROcodone 2021-0 2- No 1{tbl} Take [address] [...] Max Daily Amount: 4 tablets HYDROcodone 2021-0 2- No 1{tbl} Take [address] -acetaminop 8-08 10-24 tablet by Jessica mehta ([facility] 00:00: 00:00 mouth Medic al 5-325) 00 :00 every 6 Center 5-325 mg (six) per tablet hours as needed for Pain for up to 10 doses. Max Daily Amount: 4 tablets HYDROcodone 2021-0 2- No 1{tbl} Take [address] -acetaminop 8-08 10-24 tablet by Jessica mehta ([facility] 00:00: 00:00 mouth Medic al 5-325) 00 :00 every 6 Center 5-325 mg (six) per tablet hours as needed for Pain for up to 10 doses. Max Daily Amount: 4 tablets HYDROcodone 2022-0 2- No 1{tbl} Take [address] -acetaminop 8-08 10-24 tablet by Jessica mehta ([facility] 00:00: 00:00 mouth Medic al 5-325) 00 :00 every 6 Center 5-325 mg (six) per tablet hours as needed for Pain for up to 10 doses. Max Daily Amount: 4 tablets sulfamethox Yes 160mg{t Q.[id number] Take [address] [facility] azole-trime 5-25 rimetho [id number] tablet [facility] thoprim 00:00: prim} 3W (160 mg of Med ical (BACTRIM 00 trimethopr Cente r DS) 800-160 im total) mg per by mouth 3 tablet (three) times a week I. sulfamethox 2021- No 160mg{t Q.[id number] Take [address] [facility] azole-trime 5-25 -25 rimetho [id number] tablet [facility] thoprim 00:00: 00:00 prim} 3W (160 mg of Me dical (BACTRIM 00 :00 trimethopr Cente r DS) 800-160 im total) mg per by mouth 3 tablet (three) times a week I. sulfamethox 2021- No 160mg{t Q.[id number] Take [address] [facility] azole-trime 5-25 -25 rimetho [id number] tablet [facility] thoprim 00:00: 00:00 prim} 3W (160 mg of Me dical (BACTRIM 00 :00 trimethopr Cente r DS) 800-160 im total) mg per by mouth 3 tablet (three) times a week I. sulfamethox 2021- No 160mg{t Q.[id number] Take [address] [facility] azole-trime 5-25 -25 rimetho [id number] tablet [facility] thoprim 00:00: 00:00 prim} 3W (160 mg of Me dical (BACTRIM 00 :00 trimethopr Cente r DS) 800-160 im total) mg per by mouth 3 tablet (three) times a week I. sulfamethox 2021- No 160mg{t Q.[id number] Take [address] [facility] azole-trime 5-25 -25 rimetho [id number] tablet [facility] thoprim 00:00: 00:00 prim} 3W (160 mg of Me dical (BACTRIM 00 :00 trimethopr Cente r DS) 800-160 im total) mg per by mouth 3 tablet (three) times a week I. sulfamethox 2021- No 160mg{t Q.[id number] Take [address] [facility] azole-trime 10-11-25 rimetho [id number] tablet [facility] thoprim 00:00: 00:00 prim} 3W (160 mg of Me dical (BACTRIM 00 :00 trimethopr Cente r DS) 800-160 im total) mg per by mouth 3 tablet (three) times a week I. sulfamethox 2021- No 160mg{t Q.[id number] Take [address] [facility] azole-trime 10-11-25 rimetho [id number] tablet [facility] thoprim 00:00: 00:00 prim} 3W [...] tablet mouth daily. metroNIDAZO 2021- No 500mg Q.[id number] Take [address] [facility] (FLAGYL) 10-10 08- [id number] [facility] 500 MG 00:00: 00:00 3D (500 mg Medical tablet 00 :00 total) by Center mouth 3 (three) times daily. levoFLOXaci 2021- No 750mg QD Take [address] n -10 01-08 [facility] (LEVAQUIN) 00:00: 00:00 (750 mg Med ical 750 MG 00 :00 total) by Center tablet mouth daily. metroNIDAZO 2021- No 500mg Q.[id number] Take [address] [facility] (FLAGYL) 10-10-08 [id number] [facility] 500 MG 00:00: 00:00 3D (500 mg Medical tablet 00 :00 total) by Center mouth 3 (three) times daily. levoFLOXaci 2021-0 2022- No 750mg QD Take [address] n 10-10-08 tablet [facility] (LEVAQUIN) 00:00: 00:00 (750 mg Med ical 750 MG 00 :00 total) by Center tablet mouth daily. metroNIDAZO 2022-0 2022- No 500mg Q.[id number] Take [address] [facility] (FLAGYL) 10-10- [id number] [facility] 500 MG 00:00: 00:00 3D (500 mg Medical tablet 00 :00 total) by Center mouth 3 (three) times daily. levoFLOXaci 2022-0 2022- No 750mg QD Take [address] n 10-10- tablet [facility] (LEVAQUIN) 00:00: 00:00 (750 mg Med ical 750 MG 00 :00 total) by Center tablet mouth daily. metroNIDAZO 2022-0 2022- No 500mg Q.[id number] Take [address] [facility] (FLAGYL) 10-10- [id number] [facility] 500 MG 00:00: 00:00 3D (500 mg Medical tablet 00 :00 total) by Center mouth 3 (three) times daily. levoFLOXaci 2022-0 2022- No 750mg QD Take [address] n 10-10- tablet [facility] (LEVAQUIN) 00:00: 00:00 (750 mg Med ical 750 MG 00 :00 total) by Center tablet mouth daily. metroNIDAZO 2022-0 2022- No 500mg Q.[id number] Take [address] [facility] (FLAGYL) 10-10- [id number] [facility] 500 MG 00:00: 00:00 3D (500 mg Medical tablet 00 :00 total) by Center mouth 3 (three) times daily. levoFLOXaci 2022-0 2022- No 750mg QD Take [address] n 10-10-08 tablet [facility] (LEVAQUIN) 00:00: 00:00 (750 mg Med ical 750 MG 00 :00 total) by Center tablet mouth daily. metroNIDAZO 2022-0 2022- No 500mg Q.[id number] Take [address] [facility] (FLAGYL) 10-10- [id number] [facility] 500 MG 00:00: 00:00 3D (500 mg Medical tablet 00 :00 total) by Center mouth 3 (three) times daily. levoFLOXaci 2021-2021- No 750mg QD Take [address] [facility] n 10-10 tablet [facility] (LEVAQUIN) 00:00: 00:00 (750 mg Med ical 750 MG 00 :00 total) by Center tablet mouth daily. metroNIDAZO 2021-2021- No 500mg Q.[id number] Take [address] [facility] (FLAGYL) 10-10 [id number] [facility] 500 MG 00:00: 00:00 3D [...] Center daily for 30 days. predniSONE 2021-0 2- No 50mg QD Take [address] [facility] (DELTASONE) 10-10- tablet (50 L [facility] 50 MG 00:00: 23:59 mg total) Medica l tablet 00 :00 by mouth Center daily for 30 days. predniSONE 2021-0 2- No 50mg QD Take [address] [facility] (DELTASONE) 10-10- tablet (50 [facility] 50 MG 00:00: 23:59 mg total) Medica l tablet 00 :00 by mouth Center daily for 30 days. predniSONE 2-0 2- No 50mg QD Take [address] [facility] (DELTASONE) 10-10- tablet (50 L [facility] 50 MG 00:00: 23:59 mg total) Medica l tablet 00 :00 by mouth Center daily for 30 days. methocarbam 2-0 2- No 1000mg Q.25D Take [address] [facility] oL 10-10- tablets [facility] (ROBAXIN) 00:00: 23:59 (1,000 mg Me dical 500 MG 00 :00 total) by Center tablet mouth 4 (four) times daily for 10 days. LORazepam 2-0 2022- No .5mg [facility] (ATIVAN[facility] 10-10- [facility] 0.5 MG 00:00: 23:59 (0.5 mg Medical tablet 00 :00 total) by Center mouth 2 (two) times daily as needed for Anxiety for up to 10 days. Max Daily Amount: 1 mg morphine 2021-0 2021- No 15mg Take [address] [facility] (MSIR) 15 10-10- tablet (15 Jody es MG tablet 00:00: 23:59 mg total) Me dical 00 :00 by mouth Center every 4 (four) hours as needed for up to 10 days. Max Daily Amount: 90 mg methocarbam 2-0 2021- No 1000mg Q.25D Take 2 [facility] [...] 15mg Take [address] [facility] (MSIR) 15 - 06-03 tablet (15 Jody es MG tablet 00:00: 23:59 mg total) Me dical 00 :00 by mouth Center every 4 (four) hours as needed for up to 10 days. Max Daily Amount: 90 mg methocarbam 2022-0 2022- No 1000mg Q.25D Take [address] [facility] oL -24 06-03 tablets [facility] (ROBAXIN) 00:00: 23:59 (1,000 [...] Amount: 90 mg sulfamethox 2021- No 160mg{t Q.[id number] Take [address] [facility] azole-trime 09-25 rimetho [id number] tablet [facility] thoprim 00:00: 00:00 prim} 3W (160 mg of Me dical (BACTRIM 00 :00 trimethopr Cente r DS) 800-160 im total) mg per by mouth 3 tablet (three) times a week SAT/ I. sulfamethox 2021- No 160mg{t Q.[id number] Take [address] [facility] azole-trime 09-25 rimetho [id number] tablet [facility] thoprim 00:00: 00:00 prim} 3W (160 mg of Me dical (BACTRIM 00 :00 trimethopr Cente r DS) 800-160 im total) mg per by mouth 3 tablet (three) times a week I. sulfamethox 2021- No 160mg{t Q.[id number] Take [address] [facility] azole-trime 09-25 rimetho [id number] tablet [facility] thoprim 00:00: 00:00 prim} 3W (160 mg of Me dical (BACTRIM 00 :00 trimethopr Cente r DS) 800-160 im total) mg per by mouth 3 tablet (three) times a week I. sulfamethox 2021-2021- No 160mg{t Q.[id number] Take [address] [facility] azole-trime 09-25 rimetho [id number] tablet [facility] thoprim 00:00: 00:00 prim} 3W (160 mg of Me dical (BACTRIM 00 :00 trimethopr Cente r DS) 800-160 im total) mg per by mouth 3 tablet (three) times a week I. sulfamethox 2021- No 160mg{t Q.[id number] Take [address] [facility] azole-trime 09-25 rimetho [id number] tablet [facility] thoprim 00:00: 00:00 prim} 3W (160 mg of Me dical (BACTRIM 00 :00 trimethopr Cente r DS) 800-160 im total) mg per by mouth 3 tablet (three) times a week I. sulfamethox 2021- No 160mg{t Q.[id number] Take [address] [facility] azole-trime 09-25 rimetho [id number] tablet [facility] thoprim 00:00: 00:00 prim} 3W (160 mg of Me dical (BACTRIM 00 :00 trimethopr Cente r DS) 800-160 im total) mg per by mouth 3 tablet (three) times a week I. sulfamethox 2021- No 160mg{t Q.[id number] Take [address] [facility] azole-trime 09-25 rimetho [id number] tablet [facility] thoprim 00:00: 00:00 prim} 3W (160 mg of Me dical (BACTRIM 00 :00 trimethopr Cente r DS) 800-160 im total) mg per by mouth 3 tablet (three) times a week I. pantoprazol Yes 40mg QD Take [address] [facility] e 5- tablet (40 [facility] (PROTONIX) 00:00: mg total) Me dical 40 MG 00 by mouth Center tablet daily. sertraline 2022- No 50mg QD Take [address] [facility] (ZOLOFT) 50 5- 05-07 tablet (50 L ukes MG tablet 00:00: 23:59 mg total) Me dical 00 :00 by mouth Center daily. pantoprazol 2022-0 2022- No 40mg QD Take [address] [facility] e 5-07 10-24 tablet (40 [facility] (PROTONIX) 00:00: 00:00 mg total) M edical 40 MG 00 :00 by mouth Center tablet daily. sertraline 2-0 2022- No 50mg QD Take [address] [facility] (ZOLOFT) 50 5-07 10-24 tablet (50 L [facility] MG tablet 00:00: 00:00 mg total) Me dical 00 :00 by mouth Center daily. pantoprazol 2022-0 2022- No 40mg QD Take [address] [facility] e 5-07 10-24 tablet (40 [facility] (PROTONIX) 00:00: 00:00 mg total) M edical 40 MG 00 :00 by mouth Center tablet daily. sertraline 2-0 2022- No 50mg QD Take [address] [facility] (ZOLOFT) 50 5-07 10-24 tablet (50 L u[facility] MG tablet 00:00: 00:00 mg total) Me dical 00 :00 by mouth Center daily. pantoprazol 2-0 2022- No 40mg QD Take [address] [facility] 5-07 10-24 tablet (40 [facility] (PROTONIX) 00:00: 00:00 mg total) M edical 40 MG 00 :00 [facility] tablet daily. sertraline 2-0 2022- No 50mg QD Take [address] [facility] (ZOLOFT) 50 5-07 10-24 tablet (50 [facility] tablet 00:00: 00:00 mg total) [facility] 00 :[facility] daily[facility] pantoprazol 2-0 2022- No 40mg QD Take [address] [facility] 5-07 10-24 tablet (40 [facility] (PROTONIX) 00:00: 00:00 mg total) M edical 40 MG 00 :00 [facility] tablet daily. sertraline 2022-0 2022- No 50mg QD Take [address] [facility] (ZOLOFT) 50 5-07 10-24 tablet (50 [facility] tablet 00:00: 00:00 mg total) [facility]ical 00 :[facility] daily[facility] pantoprazol 2022-0 2022- No 40mg QD Take [address] [facility] 5-07 10-24 tablet (40 [facility] (PROTONIX) 00:00: 00:00 mg total) M edical 40 MG 00 :00 [facility] tablet daily. sertraline 2021-0 2- No 50mg QD Take [address] [facility] (ZOLOFT) 50 5- 10-24 tablet (50 [facility] tablet 00:00: 00:00 mg total) [facility] dical 00 :[facility] daily. pantoprazol 2021-0 202- No 40mg QD Take [address] [facility] e 5- 10-24 tablet (40 [facility] (PROTONIX) 00:00: 00:00 mg total) M edical 40 MG 00 :00 [facility] tablet daily. sertraline 2021-0 2021- No 50mg QD Take [address] [facility] (ZOLOFT) 50 5- 10-24 tablet (50 [facility] tablet 00:00: 00:00 mg total) [facility] dical 00 :[facility] daily. predniSONE 2021-0 2021- No 80mg QD Take [...] 80mg QD Take [address] [facility] (DELTASONE) 5-07 05-24 tablets Luke s 20 MG 00:00: 00:00 (80 mg Medical tablet 00 :00 total) by Center mouth daily for 10 days. furosemide 2021-0 2022- No 40mg QD Take [address] [facility] (LASIX) 40 5- 05-24 tablet (40 Jessica kes MG tablet 00:00: 00:00 mg total) Me dical 00 :00 [facility] daily. insulin NPH 2021-0 2021- No Use as [facility] (HumuLIN N) 09-23- directed. Jessica kes 100 unit/mL 00:00: 00:00 Medic al injection 00 :00 [place] predniSONE 2-0 2022- No 80mg QD Take [address] [facility] (DELTASONE) 5- 05-24 tablets [facility] 20 MG 00:00: 00:00 (80 mg Medical tablet 00 :00 total) by Center mouth daily for 10 days. furosemide 2021-0 2021- No 40mg QD Take [address] [facility] (LASIX) 40 5-24 tablet (40 Jessica kes MG tablet 00:00: 00:00 mg total) Me dical 00 :00 by mouth Center daily. insulin NPH 2021-0 2021- No Use as [facility] (HumuLIN N) 09-23- directed. Jessica kes 100 unit/mL 00:00: 00:00 Medic al injection 00 :00 [place] predniSONE 2-0 2022- No 80mg QD Take [address] [facility] (DELTASONE) 5 05-24 tablets [facility] 20 MG 00:00: 00:00 (80 mg Medical tablet 00 :00 total) by Center mouth daily for 10 days. furosemide 2021-0 2022- No 40mg QD Take [address] [facility] (LASIX) 40 5-07 05-24 tablet (40 Jessica kes MG tablet 00:00: 00:00 mg total) Me dical 00 :00 by mouth Center daily. insulin NPH 2021-0 2021- No Use as [facility] (HumuLIN N) 09-23-24 directed. Jessica kes 100 unit/mL 00:00: 00:00 Medic al injection 00 :00 [place] predniSONE 2021-0 2021- No 80mg QD Take [...] 00:00: 00:00 Medic al injection 00 :00 [place] predniSONE 2021-2021- No 80mg QD Take 4 [...] 00:00: 00:00 Medic al injection 00 :00 [place] predniSONE 2021-0 2021- No 5mg QD Take [address] [facility] (DELTASONE) 09-22 by mouth Jody es 5 MG tablet 16:07: 00:00 daily. Med ical 21 :00 [place] CARVEDILOL 2021-2021- No Take by [facility] ORAL 09-22- [facility] 16:07: 00:00 [facility] 21 :00 [place] tramadol 2021-2021- No Take by [facility]- [facility] (TRAMADOL 16:07: 00:00 Medical ORAL) 21 :00 [place] predniSONE 2021-0 2021- No 5mg QD Take [address] (DELTASONE) 09-22- by mouth Jody es 5 MG tablet 16:07: 00:00 daily. Med ical 21 :00 [place] CARVEDILOL 2021-0 2021- No Take by [facility] ORAL 5-06 05-06 [facility]. [facility] 16:07: 00:00 Medical 21 :00 Center tramadol 2021-0 2021- No Take [facility] 5-06 05-06 [facility] (TRAMADOL 16:07: 00:00 Medical ORAL) 21 :00 [place] predniSONE 2-0 2- No 5mg QD Take [address] (DELTASONE) 5-06 05-06 by mouth Jody es 5 MG tablet 16:07: 00:00 daily. Med ical 21 :00 [place] CARVEDILOL 2021-0 2021- No Take by [facility] ORAL 5-06 05-06 [facility]. [facility] 16:07: 00:00 Medical 21 :00 [place] tramadol 2021-0 2021- No Take by [facility] 5-06 05-06 [facility] (TRAMADOL 16:07: 00:00 Medical ORAL) 21 :00 [place] predniSONE 2-0 2021- No 5mg QD Take [address] (DELTASONE) 5-06 05-06 by mouth Jody es 5 MG tablet 16:07: 00:00 daily. Med ical 21 :00 [place] CARVEDILOL 2021-0 2021- No Take by [facility] ORAL 5-06 05-06 [facility]. [facility] 16:07: 00:00 Medical 21 :00 [place] tramadol 2021-0 2021- No Take [facility] 5-06 05-06 [facility] (TRAMADOL 16:07: 00:00 Medical ORAL) 21 :00 [place] predniSONE 2-0 2- No 5mg QD Take [address] (DELTASONE) 5-06 05-06 by mouth Jody es 5 MG tablet 16:07: 00:00 daily. Med ical 21 :00 [place] CARVEDILOL 2021-0 2021- No Take by [facility] ORAL 5-06 05-06 [facility]. [facility] 16:07: 00:00 Medical 21 :00 [place] tramadol 2-0 2- No Take by [facility] 5-06 05-06 [facility] (TRAMADOL 16:07: 00:00 Medical ORAL) 21 :00 [place] predniSONE 2021- No 5mg QD Take [address] (DELTASONE) 09-22 05-06 by mouth Jody es 5 MG tablet 16:07: 00:00 daily. Med ical 21 :00 [place] CARVEDILOL 2021- No Take by [facility] ORAL 5-06 05-06 [facility]. [facility] 16:07: 00:00 Medical 21 :00 Center tramadol 2021- No Take by [facility] 5- 05-06 [facility] (TRAMADOL 16:07: 00:00 Medical ORAL) 21 :00 [place] predniSONE 2021- No 5mg QD Take [address] (DELTASONE) 09-22 05-06 by mouth Jody es 5 MG tablet 16:07: 00:00 daily. Med ical 21 :00 [place] CARVEDILOL 2021- No Take by [facility] ORAL 09-22 05-06 [facility]. [facility] 16:07: 00:00 Medical 21 :00 [place] tramadol 2021- No Take [facility] 09-22 05-06 [facility]. [facility] (TRAMADOL 16:07: 00:00 Medical ORAL) 21 :00 [place] calcium 2022- No 2{tbl} Q.[id number] Take [address] [facility] carbonate-v 09-22-06 [id number] tablets by [facility] itamin D3 00:00: 23:59 3D mouth 3 Medi doreen (OSCAL-D) 00 :00 (three) [place] 500 times mg(1,250mg) daily. -200 unit per tablet cholestyram 2022- No 1{packe Q.5D Take [address] [facility] ine 5- 05-06 t} packet by [facility] (QUESTRAN) 00:00: 23:59 mouth 2 Med ical 4 gram PwPk 00 :00 (two) Center packet times daily. clotrimazol 2022- No Q.5D Apply [facility] e - 05-06 topically [facility] (LOTRIMIN) 00:00: 23:59 2 (two) Med ical 1 % cream 00 :00 times Center daily. gabapentin 2022- No 400mg Q.[id number] Take [address] [facility] (NEURONTIN) 09-22- [id number] capsule [facility] 400 MG 00:00: 23:59 3D [...] tablet (two) times daily. pancrelipas 2022- No [id number]{ Take [address] [facility] e, 09-22 05-06 lipase} capsules [facility] Lip-Prot-Am 00:00: 23:59 (72,000 Me dical yl, (CREON) 00 :00 units of Cent er 24,000-76,0 lipase 00 -120,000 total) by unit CpDR mouth 3 capsule (three) times daily with meals. calcium 2022- No 2{tbl} Q.[id number] Take [address] [facility] carbonate-v 09-22- [id number] tablets by [facility] itamin D3 00:00: 23:59 3D mouth 3 Medi doreen (OSCAL-D) 00 :00 (three) Center 500 times mg(1,250mg) daily. -200 unit per tablet pancrelipas 2022- No [id number]{ Take [address] [facility] e, 09-22 05-06 lipase} capsules [facility] Lip-Prot-Am 00:00: 23:59 (72,000 Me dical yl, (CREON) 00 :00 units of Cent er 24,000-76,0 lipase 00 -120,000 total) by unit CpDR mouth 3 capsule (three) times daily with meals. calcium 2022- No 2{tbl} Q.[id number] Take [address] [facility] carbonate-v 09-22-06 [id number] tablets by [facility] itamin D3 00:00: 23:59 3D mouth 3 Medi doreen (OSCAL-D) 00 :00 (three) Center 500 times mg(1,250mg) daily. -200 unit per tablet pancrelipas 2022- No [id number]{ Take [address] [facility] e, 5-06 05-06 lipase} capsules [facility] Lip-Prot-Am 00:00: 23:59 (72,000 Me dical yl, (CREON) 00 :00 units of Cent er 24,000-76,0 lipase 00 -120,000 total) by unit CpDR mouth 3 capsule (three) times daily with meals. calcium 2022- No 2{tbl} Q.[id number] Take [address] [facility] carbonate-v 5- 05-06 [id number] tablets by [facility] itamin D3 00:00: 23:59 3D mouth 3 Medi doreen (OSCAL-D) 00 :00 (three) Center 500 times mg(1,250mg) daily. -200 unit per tablet pancrelipas 2022- No [id number]{ Take [address] [facility] e, 5-06 05-06 lipase} capsules [facility] Lip-Prot-Am 00:00: 23:59 (72,000 Me dical yl, (CREON) 00 :00 units of Cent er 24,000-76,0 lipase 00 -120,000 total) by unit CpDR mouth 3 capsule (three) times daily with meals. calcium 2022- No 2{tbl} Q.[id number] Take [address] [facility] carbonate-v 5-06 05-06 [id number] tablets by [facility] itamin D3 00:00: 23:59 3D mouth 3 Medi doreen (OSCAL-D) 00 :00 (three) Center 500 times mg(1,250mg) daily. -200 unit per tablet pancrelipas 2022- No [id number]{ Take [address] [facility] e, 5-06 05-06 lipase} capsules [facility] Lip-Prot-Am 00:00: 23:59 (72,000 Me dical yl, (CREON) 00 :00 units of Cent er 24,000-76,0 lipase 00 -120,000 total) by unit CpDR mouth 3 capsule (three) times daily with meals. calcium 2022- No 2{tbl} Q.[id number] Take [address] [facility] carbonate-v 09-22 [id number] tablets by [facility] itamin D3 00:00: 23:59 3D mouth 3 Medi doreen (OSCAL-D) 00 :00 (three) Center 500 times mg(1,250mg) daily. -200 unit per tablet pancrelipas 2022- No [id number]{ Take [address] [facility] e, 09-22- lipase} capsules [facility] Lip-Prot-Am 00:00: 23:59 (72,000 Me dical yl, (CREON) 00 :00 units of Cent er 24,000-76,0 lipase 00 -120,000 total) by unit CpDR mouth 3 capsule (three) times daily with meals. calcium 2022- No 2{tbl} Q.[id number] Take [address] [facility] carbonate-v 09-22 [id number] tablets by [facility] itamin D3 00:00: 23:59 3D mouth 3 Medi doreen (OSCAL-D) 00 :00 (three) Center 500 times mg(1,250mg) daily. -200 unit per tablet pancrelipas 2022- No [id number]{ Take [address] [facility] e, 09-22 lipase} [...] to 360 days. gabapentin 2021-2021- No 400mg Q.[id number] Take [address] [facility] (NEURONTIN) 09-22 [id number] capsule [facility] 400 MG 00:00: 00:00 3D [...] 2 Center tablet (two) times daily. gabapentin 202-0 2022- No 400mg Q.[id number] Take [address] [facility] (NEURONTIN) 09-22- [id number] [facility] 400 MG 00:00: 00:00 3D (400 mg Medical capsule 00 :00 total) by Center mouth 3 (three) times daily. hydrOXYchlo 202-0 2022- No 200mg Q.5D Take [address] roQUINE 09-22-24 tablet [facility] (PLAQUENIL) 00:00: 00:00 (200 mg Me dical 200 mg 00 :00 total) by Center tablet mouth 2 (two) times daily. metoprolol 2021-0 2022- No 25mg Q.5D Take [address] [facility] tartrate 5-10 27-24 tablet (25 [facility] (LOPRESSOR) 00:00: 00:00 mg total) Medical 25 MG 00 :00 by mouth 2 Center tablet (two) times daily. gabapentin 2021-0 2022- No 400mg Q.[id number] Take [address] [facility] (NEURONTIN) 09-22- [id number] capsule [facility] 400 MG 00:00: 00:00 3D [...] times daily. gabapentin 2022-0 2022- No 400mg Q.[id number] Take [address] [facility] (NEURONTIN) - 10-24 [id number] capsule [facility] 400 MG 00:00: 00:00 3D [...] times daily. gabapentin 2022-0 2022- No 400mg Q.[id number] Take [address] [facility] (NEURONTIN) 09-22- [id number] capsule [facility] 400 MG 00:00: 00:00 3D [...] 25mg Q.5D Take [address] [facility] tartrate 5 10-24 tablet (25 [facility] (LOPRESSOR) 00:00: 00:00 mg total) Medical 25 MG 00 :00 by mouth 2 Center tablet (two) times daily. gabapentin 2022-0 2022- No 400mg Q.[id number] Take [address] [facility] (NEURONTIN) 09-22 10-24 [id number] [facility] 400 MG 00:00: 00:00 3D [...] Q.5D Take [address] [facility] ine 5-06 09-25 t} packet by [facility] (QUESTRAN) 00:00: 00:00 mouth 2 Med ical 4 gram PwPk 00 :00 (two) Center packet times daily. clotrimazol 2021- No Q.5D Apply [facility] 5- 09-25 topically [facility] (LOTRIMIN) 00:00: 00:00 2 (two) Med ical 1 % cream 00 :00 times Center daily. cholestyram 2021- No 1{packe Q.5D Take [address] [facility] ine 5-06 09-25 t} packet by [facility] (QUESTRAN) 00:00: 00:00 mouth 2 Med ical 4 gram PwPk 00 :00 (two) Center packet times daily. clotrimazol 2021- No Q.5D Apply [facility] 5- 09-25 topically [facility] (LOTRIMIN) 00:00: 00:00 2 (two) Med ical 1 % cream 00 :00 times Center daily. cholestyram 2021- No 1{packe Q.5D Take [address] [facility] ine 5-06 09-25 t} packet by [facility] (QUESTRAN) 00:00: 00:00 mouth 2 Med ical 4 gram PwPk 00 :00 (two) Center packet times daily. clotrimazol 2021- No Q.5D Apply [facility] e 5-06 09-25 [facility]ically [facility] (LOTRIMIN) 00:00: 00:00 2 (two) Med ical 1 % cream 00 :00 times Center daily. cholestyram 2021- No 1{packe Q.5D Take [address] [facility] ine 5-06 09-25 t} packet by [facility] (QUESTRAN) 00:00: 00:00 mouth 2 Med ical 4 gram PwPk 00 :00 (two) Center packet times daily. clotrimazol 2021-0 2022- No Q.5D Apply [facility] e 09-2225 topically [facility] (LOTRIMIN) 00:00: 00:00 2 (two) Med ical 1 % cream 00 :00 times Center daily. cholestyram 2021-0 2021- No 1{packe Q.5D Take [address] [facility] ine 5-10 26-25 t} packet by [facility] (QUESTRAN) 00:00: 00:00 mouth 2 Med ical 4 gram PwPk 00 :00 (two) Center packet times daily. clotrimazol 2021-0 2022- No Q.5D Apply [facility] e 09-2225 topically [facility] (LOTRIMIN) 00:00: 00:00 2 (two) Med ical 1 % cream 00 :00 times Center daily. cholestyram 2021-0 2021- No 1{packe Q.5D Take [address] [facility] ine 09-2225 t} packet by [facility] (QUESTRAN) 00:00: 00:00 mouth 2 Med ical 4 gram PwPk 00 :00 (two) Center packet times daily. clotrimazol 2021-0 2- No Q.5D Apply [facility] e 09-22-25 topically [facility] (LOTRIMIN) 00:00: 00:00 2 (two) Med ical 1 % cream 00 :00 times Center daily. morphine 2021-0 2- No 15mg Take [address] [facility] (MS CONTIN) 09-22-05 tablet (15 L ukes 15 MG 12 hr 00:00: 23:59 mg total) Medical tablet 00 :00 by mouth Center every 8 (eight) hours for 30 days. Max Daily Amount: 45 mg morphine 2021-0 2- No 15mg Take [address] [facility] (MS CONTIN) 09-22-05 tablet (15 L [facility] 15 MG 12 hr 00:00: 23:59 mg total) Medical tablet 00 :00 by mouth Center every 8 (eight) hours for 30 days. Max Daily Amount: 45 mg morphine 2-0 2- No 15mg Take [address] [facility] (MS [...] injection 00 :00 Center loperamide No 4mg Q.[id number] Take [address] [facility] (IMODIUM) 2 09-22 [id number] capsules [facility] mg capsule 00:00: 00:00 3D [...] days. Max Daily Amount: 1 mg methocarbam 2022-0 2022- No 1000mg Q.25D [...] 00 :00 Center loperamide 2021- No 4mg Q.[id number] Take [address] [facility] (IMODIUM) 2 09-22 [id number] capsules [facility] mg capsule 00:00: 00:00 3D [...] 00 :00 Center loperamide 2021- No 4mg Q.[id number] Take [address] [facility] (IMODIUM) 2 09-22 [id number] capsules [facility] mg capsule 00:00: 00:00 3D [...] 00 :00 Center loperamide 2021- No 4mg Q.[id number] Take [address] [facility] (IMODIUM) 2 09-22 [id number] capsules [facility] mg capsule 00:00: 00:00 3D [...] 00 :00 Center loperamide 2021- No 4mg Q.[id number] Take [address] [facility] (IMODIUM) 2 09-22 [id number] capsules [facility] mg capsule 00:00: 00:00 3D [...] 00:00: 00:00 Medic al injection 00 :00 [place] loperamide 2021- No 4mg Q.[id number] Take [address] [facility] (IMODIUM) 2 09-22 [id number] capsules [facility] mg capsule 00:00: 00:00 3D [...] 00 :00 Center loperamide 2021- No 4mg Q.[id number] Take [address] [facility] (IMODIUM) 2 09-22 [id number] capsules [facility] mg capsule 00:00: 00:00 3D [...] 1000mg Q.25D Take [address] [facility] oL 09-22-24 tablets [facility] (ROBAXIN) 00:00: 00:00 (1,000 mg [...] days. Max Daily Amount: 60 mg simethicone No 80mg Q.25D Take 1 [facility] [...] blood 2022-03-18 21:00:00 139 mm[Hg] Univer sity of pressure [facility] Diastolic blood 2022-03-18 21:00:00 91 mm[Hg] Unive rsity of pressure [facility] Heart rate 2022-03-18 21:00:00 84 /min [facility] Body temperature 2022-03-18 21:00:00 37.06 Lori [facility] Respiratory rate 2022-03-18 21:00:00 18 /min [facility] Oxygen saturation in 2022-03-18 21:00:00 97 /min [facility] blood by [place] [facility] Pulse oximetry [facility] Body height 2022-03-16 07:07:00 172.7 cm [facility] Body weight 2022-03-16 07:07:00 99.791 kg [facility] BMI 2022-03-16 07:07:00 33.46 kg/m2 [facility] Systolic blood 2022-03-14 23:00:00 176 mm[Hg] [facility] Diastolic blood 2022-03-14 23:00:00 124 mm[Hg] [facility] Heart rate 2022-03-14 23:00:00 108 /min [facility] Oxygen saturation in 2022-03-14 23:00:00 99 /min [facility] Arterial blood by [place] [employer] doreen Pulse oximetry Branch Respiratory rate 2022-03-14 22:00:00 20 /min [facility] Body temperature 2022-03-14 18:22:00 37.5 Lori [facility] Body height 2022-03-14 18:22:00 172.7 cm [facility] Body weight 2022-03-14 18:22:00 99.791 kg [facility] BMI 2022-03-14 18:22:00 33.45 kg/m2 [facility] HEIGHT 2022-03-08 19:00:00 172.7 cm WEIGHT 2022-03-08 [...] kg Systolic blood 2022-06-05 12:04:00 119 mm[Hg] [facility] Diastolic blood 2022-06-05 12:04:00 60 mm[Hg] [facility] Heart rate 2022-06-05 12:04:00 88 /min [facility] Body temperature 2022-06-05 12:04:00 36.56 Lori [facility] Respiratory rate 2022-06-05 12:04:00 18 /min [facility] Oxygen saturation in 2022-06-05 12:04:00 96 /min [facility] Arterial blood by Medical Ce nter Pulse oximetry Body height 2022-05-26 13:38:00 172.7 cm [facility] Body weight 2022-05-26 13:38:00 99.791 kg [facility] BMI 2022-05-26 13:38:00 33.45 kg/m2 [facility] Systolic blood 2022-03-12 11:02:00 175 mm[Hg] [facility] Diastolic blood 2022-03-12 11:02:00 120 mm[Hg] [facility] Heart rate 2022-03-12 11:02:00 75 /min [facility] Body temperature 2022-03-12 11:02:00 36.78 Lori [facility] Respiratory rate 2022-03-12 11:02:00 18 /min [facility] Oxygen saturation in 2022-03-12 11:02:00 97 /min [facility] Arterial blood by Medical Ce nter Pulse oximetry Body height 2022-03-08 19:00:00 172.7 cm [facility] Body weight 2022-03-08 19:00:00 99.428 kg [facility] BMI 2022-03-08 19:00:00 33.33 kg/m2 [facility] Systolic blood 2021-12-25 15:25:00 123 mm[Hg] [facility] Diastolic blood 2021-12-25 15:25:00 76 mm[Hg] [facility] Annette adams [facility] pressure [facility] Heart rate 2021-12-25 15:25:00 103 /min [facility] Body temperature 2021-12-25 15:25:00 36.78 Lori [facility] Respiratory rate 2021-12-25 15:25:00 18 /min [facility] Oxygen saturation in 2021-12-25 15:25:00 95 /min [facility] Arterial blood by Medical Ce nter Pulse oximetry Body height 2021-12-07 12:30:00 172.7 cm [facility] Body weight 2021-12-07 12:30:00 95.255 kg [facility] BMI 2021-12-07 12:30:00 31.93 kg/m2 [facility] Procedures Procedure Date / Time Performing Clinician Source Performed POCT-GLUCOSE METER 2022-06-[address] [facility] 11:53:00 [facility] POCT-GLUCOSE METER 2022-06-[address] [facility] 09:21:00 [facility] MR ABDOMEN WITH & WITHOUT IV 2022-06-05 [facility] 08:30:00 [facility] BASIC METABOLIC PANEL 2022-06-05 Arif, Miker [facility] 04:04:00 [facility] CBC W/PLT COUNT & AUTO 2022-06-05 Arif, Miker [facility] DIFFERENTIAL 04:04:00 [facility] MAGNESIUM 2022-06-05 Arif, [facility] 04:04:00 [facility] CBC W/PLT COUNT & AUTO 2022-06-05 Arif, Miker [facility] DIFFERENTIAL 04:04:00 [facility] POCT-GLUCOSE METER 2022-06-[address] [facility] 21:21:00 [facility] POCT-GLUCOSE METER 2022-06-[address] [facility] 17:02:00 [facility] POCT-GLUCOSE METER 2022-06-[address] [facility] 11:46:00 Medical Center POCT-GLUCOSE METER 2022-06-04 Jay, Kayla Ann [facility] 08:09:00 [facility] BASIC METABOLIC PANEL 2022-06-04 Arihenok, Melissa [facility]ID [facility] 05:19:00 Medical Center CBC W/PLT COUNT & AUTO 2022-06-04 Arif, Melissa CID [facility] DIFFERENTIAL 05:19:00 Medical Center MAGNESIUM 2022-06-04 [facility]if[facility] 05:19:00 [facility] CBC W/PLT COUNT & AUTO 2022-06-04 Arif, Melissa CID [facility] k[facility] DIFFERENTIAL 05:19:00 [facility] POCT-GLUCOSE METER 2022-06-03 Kayla Thompson Nevin [facility] 22:31:00 [facility] POCT-GLUCOSE METER 2022-06-03 Jay, Kayla [facility] 16:39:00 [facility] POCT-GLUCOSE METER 2022-06-[address] [facility] 11:32:00 [facility] POCT-GLUCOSE METER 2022-06-03 Jay, Kayla [facility] 07:47:00 [facility] BASIC METABOLIC PANEL 2022-06-03 Xochitl, Melissa [facility]ID [facility] 03:48:00 Medical Center CBC W/PLT COUNT & AUTO 2022-06-[address] kes DIFFERENTIAL 03:48:00 [facility] MAGNESIUM 2022-06-03 Xochitl, [facility] 03:48:00 [facility] Center CBC W/PLT COUNT & AUTO 2022-06-03 Arihenok, Melissa CID [facility] kes DIFFERENTIAL 03:48:00 [facility] POCT-GLUCOSE METER 2022-06-02 Jay Kayla Nevin [facility] 21:17:00 Medical Center POCT-GLUCOSE METER 2022-06-02 Jay Kayla Nevin [facility] 16:48:00 Medical Center POCT-GLUCOSE METER 2022-06-02 Jay Kayla Nevin [facility] 11:30:00 [facility] POCT-GLUCOSE METER 2022-06-02 Jay Kayla Nevin [facility] 07:07:00 [facility] SARS-COV2/RT-PCR ([facility] & REF 2022-06-[address] [facility]) 06:10:00 [facility] POCT-GLUCOSE METER 2022-06-02 Dawna Thompsonly Nevin [facility] 02:11:00 [facility] BASIC METABOLIC PANEL 2022-06-02 Arif, Melissa [facility]ID [facility] 02:09:00 [facility] CBC W/PLT COUNT & AUTO 2022-06-02 Arif, Melissa CID [facility] k[facility] DIFFERENTIAL 02:09:00 [facility] MAGNESIUM 2022-06-02 Arif, Sahar [facility] 02:09:00 [facility] CBC W/PLT COUNT & AUTO 2022-06-02 Arif, Melissa CID [facility] k[facility] DIFFERENTIAL 02:09:00 [facility] POCT-GLUCOSE METER 2022-06-01 Kayla Thompson Nevin [facility] 11:48:[address] [facility] [address] ABDOMEN/PELVIS WITH IV 2022-06-[address] [facility] CONTRAST 11:12:00 [facility] POCT-GLUCOSE METER 2022-06-01 Kayla Thompson Nevin [facility] 07:44:00 [facility] BASIC METABOLIC PANEL 2022-06-01 Arif, Melissa CDI [facility] 03:52:00 [facility] CBC W/PLT COUNT & AUTO 2022-06-01 Arif, Melissa CID [facility] k[facility] DIFFERENTIAL 03:52:00 [facility] MAGNESIUM 2022-06-01 Arif, Melissa [facility] 03:52:00 [facility] Center CBC W/PLT COUNT & AUTO 2022-06-01 Arif, Melissa CID [facility] k[facility] DIFFERENTIAL 03:52:00 [facility] POCT-GLUCOSE METER 2022-05-31 Kayla Thompson Nevin [facility] 22:26:00 [facility] POCT-GLUCOSE METER 2022-05-31 Dawna Thompsonly Nevin [facility] 16:11:00 [facility] POCT-GLUCOSE METER 2022-05-31 Jay Kayla Nevin [facility] 11:22:00 [facility] POCT-GLUCOSE METER 2022-05-31 Kayla Thompson Nevin [facility] 07:05:00 [facility] BASIC METABOLIC PANEL 2022-05-31 Arif, Melissa CID [facility] 04:59:00 Medical Center CBC W/PLT COUNT & AUTO 2022-05-31 Arif, Melissa CID [facility] k[facility] DIFFERENTIAL 04:59:00 Medical Center MAGNESIUM 2022-05-31 Arif, Miker [facility] 04:59:00 [facility] Center CBC W/PLT COUNT & AUTO 2022-05-31 Arif, Melissa CID [facility] DIFFERENTIAL 04:59:00 [facility] CREATININE, RANDOM URINE 2022-05-31 Robby Monaanaly [facility] 01:35:00 [facility] POCT-GLUCOSE METER 2022-05-[address] [facility] 20:42:00 [facility] POCT-GLUCOSE METER 2022-05-30 Kayla Thompson Nevin [facility] 15:52:00 [facility] POCT-GLUCOSE METER 2022-05-30 Kayla Thompson Nevin [facility] 10:52:00 [facility] POCT-GLUCOSE METER 2022-05-30 Kayla Thompson Nevin [facility] 07:51:00 [facility] BASIC METABOLIC PANEL 2022-05-30 Arif, Melissa [facility]ID [facility] 03:44:00 Medical Center CBC W/PLT COUNT & AUTO 2022-05-30 Arif, Melissa CID [facility] DIFFERENTIAL 03:44:00 [facility] MAGNESIUM 2022-05-30 Arif, Melissa [facility] 03:44:00 [facility] Center CBC W/PLT COUNT & AUTO 2022-05-30 Arif, Melissa CID [facility] DIFFERENTIAL 03:44:00 [facility] POCT-GLUCOSE METER 2022-05-29 Arif, Melissa [facility] 22:32:00 [facility] PROTEIN, RANDOM URINE 2022-05-29 Arif, Melissa [facility] 17:34:00 [facility] BASIC METABOLIC PANEL 2022-05-29 Arif, Melissa [facility] 04:37:00 [facility] CBC W/PLT COUNT & AUTO 2022-05-29 Arif, Melissa [facility] DIFFERENTIAL 04:37:00 [facility] MAGNESIUM 2022-05-29 Arif, Miker [facility] 04:37:00 [facility] T SPOT TB 2022-05-29 Arif, Miker [facility] 04:37:00 [facility] CBC W/PLT COUNT & AUTO 2022-05-29 Arif, Miker [facility] DIFFERENTIAL 04:37:00 [facility] POCT-GLUCOSE METER 2022-05-28 Arif, Sahar [facility] 22:30:00 [facility] HEMOGLOBIN A1C 2022-05-28 Arif, Miker [facility] 04:29:00 [facility] BASIC METABOLIC PANEL 2022-05-28 Arif, Miker [facility] 04:29:00 [facility] [facility] CBC W/PLT COUNT & AUTO 2022-05-28 Arif, Miker [facility] DIFFER[facility] 04:29:00 [facility] MAGNESIUM 2022-05-28 Arif, Miker [facility] 04:29:00 [facility] CBC W/PLT COUNT & AUTO 2022-05-28 Arif, Miker [facility] 04:29:00 [facility] POCT-GLUCOSE METER 2022-05-27 Arif, Sahar [facility] 20:43:00 [facility] POCT-GLUCOSE METER 2022-05-27 Arif, Sahar [facility] 16:27:00 [facility] POCT-GLUCOSE METER 2022-05-27 Arif, Sahar [facility] 10:53:00 [facility] POCT-GLUCOSE METER 2022-05-27 Arif, Sahar [facility] 06:55:00 [facility] PHOSPHORUS 2022-05-[address] [facility] 03:31:00 [facility] BASIC METABOLIC PANEL 2022-05-27 Arif, Miker [facility] 03:31[facility] CBC W/PLT COUNT & AUTO 2022-05-27 Arif, Sahar [facility] 03:31:00 [facility] MAGNESIUM 2022-05-27 Arif, Sahar [facility] 03:31:00 [facility] CBC W/PLT COUNT & AUTO 2022-05-27 Arif, Sahar [facility] 03:31:00 [facility] POCT-GLUCOSE METER 2022-05-26 Arif, Sahar [facility] 21:22:00 [facility] POCT-GLUCOSE METER 2022-05-26 Arif, Sahar [facility] 16:23:00 [facility] US ABDOMEN LIMITED 2022-05-26 Vernell Gonzalez [facility] 16:02:00 [facility] POCT-GLUCOSE METER 2022-05-[address] [facility] 12:43:00 [facility] SARS-COV2/RT-PCR (HS & REF 2022-05-26 Vernell Gonzalez [facility] LABS) 10:24:00 [facility] URINALYSIS W/ MICROSCOPIC 2022-05-26 Mervin Vernell [facility] 10:21:00 [facility] COMPREHENSIVE METABOLIC 2022-05-26 Mervin Vernell [facility] PANEL 10:21:00 [facility] CBC W/PLT COUNT & AUTO 2022-05-26 Mervin Vernell [facility] DIFFERENTIAL 10:21:00 [facility] CBC W/PLT COUNT & AUTO 2022-05-26 Mervin Vernell [facility] DIFFERENTIAL 10:21:00 [facility] COMPLEMENT COMPONENT C4 2022-05-26 Hay, Arnulfo [facility] 05:45:00 [facility] DOUBLE-STRANDED DNA (DSDNA) 2022-05-26 Hay, Arnulfo [facility] ANTIBODY 05:45:00 [facility] ANTI-NUCLEAR ANTIBODY (STU) 2022-05-26 Hay, Arnulfo [facility] 05:45:00 [facility] FERRITIN 2022-05-26 Hay, Arnulfo [facility] 05:45:00 [facility] IRON, TIBC, % SAT. (WITHOUT 2022-05-26 Hay, Arnulfo [facility] FERRITIN) 05:45:00 [facility] ANTI-DNA TITER 2022-05-26 Hay, Arnulfo [facility] 05:45:00 [facility] STU TITER AND PATTERN 2022-05-26 Hay, Arnulfo [facility] 05:45:00 [facility] MAGNESIUM 2022-03-18 Lucia Omer [facility] 11:41:00 [facility] [place] BASIC METABOLIC PANEL (NA, 2022-03-18 Lucia Omer [facility] K, CL, CO2, GLUCOSE, BUN, 11:41:00 [facility] CREATININE, [place]) CBC WITH DIFF 2022-03-18 Lucia Omer [facility] 11:41:[address] [place] [address] HEAD WO CONTRAST 2022-03-17 [facility] 13:50:56 [facility] MAGNESIUM 2022-03-17 Darrel [facility] xas 10:39:00 [facility] [place] HEPATIC FUNCTION PANEL 2022-03-17 [facility] ([id number] (ALB,T.PRO,BILI 10:39:00 [facility] T,BU/BC,ALT,AST,ALK PHOS) BASIC METABOLIC PANEL (NA, 2022-03-17 Darrel [facility] K, CL, CO2, GLUCOSE, BUN, 10:39:00 [facility] CREATININE, [place]) CBC WITH DIFF 2022-03-17 [facility] xa 10:39:00 [facility] PROTHROMBIN TIME / INR 2022-03-16 [facility] 22:57:00 [facility] LIPASE 2022-03-16 [facility] 11:00:00 [facility] MAGNESIUM 2022-03-16 [facility] 11:00:00 [facility] BASIC METABOLIC PANEL (NA, 2022-03-16 [facility] K, CL, CO2, GLUCOSE, BUN, 11:00:00 [facility] CREATININE, [place]) CBC WITH DIFF 2022-03-16 [facility] 11:00:00 [facility] MRSA / MSSA SCREEN BY PCR, 2022-03-[facility] 07:32[facility]00 [facility] HOSPITAL ADMISSION 2022-03-16 Doctor Unassigned, [facility] 05:01:00 Marvell [facility] LACTIC ACID WHOLE BLOOD 2022-03-14 Singer Aneta [facility] 22:10:00 [facility] URINALYSIS 2022-03-14 Singer [facility] xa 20:43:[address] [place] [address] ABDOMEN PELVIS W CONTRAST 2022-03-14 Aneta Gutierrez [facility] 20:28:55 [facility] LACTIC ACID WHOLE BLOOD 2022-03-14 Aneta Gutierrez [facility] 19:56:00 [facility] LIPASE 2022-03-14 [facility] xas 19:55:00 [facility] COMP. METABOLIC PANEL 2022-03-14 Singer [facility] ([id number]) 19:55:00 [facility] CBC WITH DIFF 2022-03-14 [facility] [address] [facility] 19:55:00 [facility] NOTICE OF PRIVACY PRACTICES 2022-03-14 Doctor Unassigned, [facility] 18:09:38 Marvell [facility] CBC (HEMOGRAM ONLY) 2022-03-[address] [facility] 05:05:00 [facility] BASIC METABOLIC PANEL 2022-03-12 Alex Hernández Post [facility] 05:05:[address] [facility] [address] ABDOMEN/PELVIS WITH IV 2022-03-11 Alex Hern[facility]dez [facility] CONTRAST 00:26:00 [facility] CBC W/PLT COUNT & AUTO 2022-03-10 Abiodun, Ahmed Nasif [facility] DIFFERENTIAL 04:22:00 [facility] BASIC METABOLIC PANEL 2022-03-10 Abiodun, Ahmed Nasif [facility] 04:22:00 [facility] CBC W/PLT COUNT & AUTO 2022-03-10 Abiodun, Ahmed Nasif [facility] DIFFERENTIAL 04:22:00 [facility] XR CHEST 1 VIEW PORTABLE / 2022-03-06 Abiodun, Ahmed Nasif [facility] 15:10:[address] [facility] [address] ABDOMEN/PELVIS WITH IV 2022-03-[address] [facility] CONTRAST 08:41:00 [facility] FL ASPIRATION OR INJECTION 2022-02-27 [facility] Wisdom [facility] 15:05:00 [facility] MR LOWER EXTREMITY JOINT 2022-02-[address] [facility] ONLY WITHOUT IV CONTRAST 14:00:00 [facility] LEFT COMPREHENSIVE METABOLIC 2022-02-24 Marco Antonio Correiamojennifer [facility] PANEL 22:25:00 [facility] GI PATHOGEN PROFILE BY PCR 2022-02-[address] [facility] 15:10:00 [facility] XR HIP 2 VIEWS BILATERAL 2022-02-24 ChaddCy melendez [facility] 08:03:00 [facility] XR HIP 2 VIEWS BILATERAL 2022-02-24 Cy Correia [facility] 08:03:00 [facility] C. DIFFICILE GDH TOXIN 2022-02-[address] [facility] 03:00:00 [facility] BLOOD CULTURE 2022-02-[address] [facility] 14:00:00 [facility] BLOOD CULTURE 2022-02-[address] [facility] 05:15:00 [facility] URINE CULTURE 2022-02-[address] [facility] 05:10:00 [facility] PERMANENT LAB REPORT - SCAN 2022-02-18 Provider, Default [facility] 00:00:00 Scanning [facility] EKG-SCANNED 2022-02-18 Provider, Default [facility] 00:00:00 Scanning [facility] COMPLEMENT COMPONENT C4 2022-02-11 Maganti, Lynette [facility] 12:36:00 [facility] DOUBLE-STRANDED DNA (DSDNA) 2022-02-11 Maganti, Lynette [facility] ANTIBODY 12:36:00 [facility] MAGNESIUM 2022-02-11 Chivo, Demetris [facility] 04:08:00 [facility] PHOSPHORUS 2022-02-11 Arimartha, Demetris [facility] 04:08:00 [facility] CBC W/PLT COUNT & AUTO 2022-02-[address] [facility] DIFFERENTIAL 04:08:00 [facility] BASIC METABOLIC PANEL 2022-02-[address] [facility] 04:08:00 [facility] CBC W/PLT COUNT & AUTO 2022-02-[address] [facility] DIFFERENTIAL 04:08:00 [facility] CBC W/PLT COUNT & AUTO 2022-02-[address] [facility] DIFFERENTIAL 05:06:00 [facility] BASIC METABOLIC PANEL 2022-02-[address] [facility] 05:06:00 [facility] CBC W/PLT COUNT & AUTO 2022-02-10 Eli, Irina [facility] DIFFER[facility] 05:06:00 [facility] MAGNESIUM 2022-02-09 Aribindjennifer, Demetris [facility] 03:57:00 [facility] PHOSPHORUS 2022-02-09 Aribindi, Demetris [facility] 03:57:00 [facility] CBC W/PLT COUNT & AUTO 2022-02-09 Eli, Irina [facility] 03:57:00 [facility] BASIC METABOLIC PANEL 2022-02-09 Eli, Irina [facility] 03:57:00 [facility] CBC W/PLT COUNT & AUTO 2022-02-09 Eli, Irina [facility] DIFFER[facility] 03:57:00 [facility] CBC W/PLT COUNT & AUTO [address] [facility] DIFFERENTIAL 09:54:00 [facility] BASIC METABOLIC PANEL [address] [facility] [facility] 09:54:00 [facility] MAGNESIUM [address] [facility] 09:54:00 [facility] PHOSPHORUS [address] [place] [address] [facility] 09:54:00 [facility] CBC W/PLT COUNT & AUTO [address] [facility] DIFFERENTIAL 09:54:00 [facility] FUNGUS CULTURE + SMEAR 2022-02-[address] 14:34:00 [facility] SURGICALLY OBTAINED CULTURE 2022-02-[address] [facility] + GRAM STAIN 14:34:00 [facility] ANAEROBIC CULTURE 2022-02-[address] [facility] 14:34:00 [facility] AFB CULTURE + SMEAR 2022-02-[address] [facility] (NON-SPUTUM) 14:34:00 [facility] SPIN/CONCENTRATION CHARGE 2022-02-[address] [facility] 14:34:00 [facility] ANESTHESIA PERIPHERAL BLOCK 2022-02-[address] [facility] 13:15:39 [facility] ANESTHESIA PERIPHERAL BLOCK 2022-02-[address] [facility] 13:13:20 [facility] LAPAROTOMY, EXPLORATORY 2022-02-[address] [facility] 12:47:00 [facility] BASIC METABOLIC PANEL 2022-02-07 Ariwileyi, Demetris [facility] 03:34:00 [facility] MAGNESIUM 2022-02-07 Aribindi, Demetris [facility] 03:34:00 [facility] PHOSPHORUS 2022-02-07 Aribindi, Demetris [facility] 03:34:00 [facility] CBC W/PLT COUNT & AUTO 2022-02-07 [facility], Demetris [facility] DIFFERENTIAL 03:34:00 [facility] PROTHROMBIN TIME/INR 2022-02-[address] [facility] 03:34:00 [facility] CBC W/PLT COUNT & AUTO 2022-02-[address] [facility] DIFFERENTIAL 03:34:00 [facility] SARS-COV2/RT-PCR ([facility] & REF 2022-02-[address] [facility] 20:08:00 [facility] TYPE AND SCREEN, AUTOMATED 2022-02-[address] [facility] 20:08:00 [facility] XR CHEST 1 VIEW PORTABLE / 2022-02-[address] [facility] BEDSIDE 18:34:[address] [facility] [address] ABDOMEN/PELVIS WITH IV 2022-02-[address] [facility] CONTRAST 11:11:00 [facility] CBC W/PLT COUNT & AUTO 2022-02-[address] [facility] DIFFERENTIAL 04:05:00 [facility] BASIC METABOLIC PANEL 2022-02-05 [facility] 04:05:00 [facility] MAGNESIUM 2022-02-[address] [facility] 04:05:00 [facility] PHOSPHORUS 2022-02-[address] [facility] 04:05:00 [facility] CBC W/PLT COUNT & AUTO 2022-02-[address] [facility] DIFFERENTIAL 04:05:00 [facility] POCT-GLUCOSE METER 2022-02-[address] [facility] 07:24:00 [facility] CBC W/PLT COUNT & AUTO 2022-02-[address] [facility] DIFFERENTIAL 04:22:00 [facility] BASIC METABOLIC PANEL 2022-02-03 Frantz Sánchez [facility] 04:22:00 [facility] PHOSPHORUS 2022-02-03 Frantz Sánchez [facility] 04:22:00 [facility] CBC W/PLT COUNT & AUTO 2022-02-03 Frantz Sánchez [facility] DIFFERENTIAL 04:22:00 [facility] POCT-GLUCOSE METER 2022-02-[address] [facility] 18:06:00 [facility] REPORT OF PROCEDURE - 2022-02-02 Willard, Shawn [facility] ENDOSCOPY URL 12:46:22 [facility] [place] FLUORO NON-SPECIFIC UP TO 2022-02-02 Willard, Shawn [facility] 1 HOUR 12:15:00 [facility] ESOPHAGOSCOPY, WITH 2022-02-02 Willard, Shawn [facility] ENDOSCOPIC ULTRASOUND 11:27:00 [facility] nter PROCEDURE W/ C-ARM 2022-02-02 Willard, Shawn [facility] 11:27:00 [facility] CBC W/PLT COUNT & AUTO 2022-02-[address] [facility] DIFFERENTIAL 04:41:00 [facility] BASIC METABOLIC PANEL 2022-02-[address] [facility] 04:41:00 [facility] PHOSPHORUS 2022-02-02 Frantz Sánchez [facility] 04:41:00 [facility] PROTHROMBIN TIME/INR 2022-02-[address] [facility] 04:41:00 [facility] CBC W/PLT COUNT & AUTO 2022-02-02 Frantz Sánchez [facility] DIFFER[facility] 04:41:00 [facility] SARS-COV2/RT-PCR (HS & REF 2022-02-[address] [facility] LABS) 08:33:00 [facility] CBC W/PLT COUNT & AUTO 2022-02-01 Frantz Sánchez [facility] DIFFERENTIAL 05:24:00 [facility] BASIC METABOLIC PANEL 2022-02-01 Frantz Sánchez [facility] 05:24:00 [facility] PHOSPHORUS 2022-02-01 Frantz Sánchez [facility] 05:24:00 [facility] PROTHROMBIN TIME/INR 2022-02-[address] [facility] 05:24:00 [facility] CBC W/PLT COUNT & AUTO 2022-02-01 [address]antz Sánchez [facility] DIFFERENTIAL 05:24:00 [facility] CBC W/PLT COUNT & AUTO 2022-01-[address] [facility] DIFFERENTIAL 05:51:00 [facility] BASIC METABOLIC PANEL 2022-01-31 [address]z S[address]chez [facility] 05:51:00 [facility] PHOSPHORUS 2022-01-31 Frantz Sánchez [facility] 05:51:00 [facility] CBC W/PLT COUNT & AUTO 2022-01-[address] [facility] DIFFERENTIAL 05:51:[address] [facility] [address] ABDOMEN/PELVIS WITH IV 2022-01-30 Short, Walker [facility] CONTRAST 20:16:00 [facility] CBC W/PLT COUNT & AUTO 2022-01-[address] [facility] DIFFERENTIAL 06:07:00 [facility] BASIC METABOLIC PANEL 2022-01-[address] [facility] 06:07:00 [facility] PHOSPHORUS 2022-01-[address] [facility] 06:07:00 [facility] CBC W/PLT COUNT & AUTO 2022-01-[address] [facility] DIFFERENTIAL 06:07:00 [facility] CBC W/PLT COUNT & AUTO 2022-01-29 Ali, Hiba Ned [facility] DIFFER[facility] 04:24:00 [facility] BASIC METABOLIC PANEL 2022-01-29 Ali, Hiba Ned [facility] 04:24:00 [facility] PHOSPHORUS 2022-01-29 Ali, Hiba Ned [facility] 04:24:00 [facility] CBC W/PLT COUNT & AUTO 2022-01-29 Ali, Hiba Ned [facility] DIFFER[facility] 04:24:00 [facility] CBC W/PLT COUNT & AUTO 2022-01-[address] [facility] DIFFERENTIAL 14:51:00 [facility] BASIC METABOLIC PANEL 2022-01-[address] [facility] 14:51:00 [facility] PHOSPHORUS 2022-01-28 Ali, Carlinea Ned [facility] 14:51:00 [facility] CBC W/PLT COUNT & AUTO 2022-01-[address] [facility] DIFFERENTIAL 14:51:00 [facility] COMPREHENSIVE METABOLIC 2022-01-27 Nalam, Nilsa Gladys [facility] PANEL 05:23:00 [facility] MAGNESIUM 2022-01-27 Nalam, Nilsa Gladys [facility] 05:23:00 [facility] CBC W/PLT COUNT & AUTO 2022-01-27 Nalam, Nilsa Gladys [facility] DIFFERENTIAL 05:23:00 [facility] PHOSPHORUS 2022-01-[address] [facility] 05:23:00 [facility] CBC W/PLT COUNT & AUTO 2022-01-27 Nalam, Nilsa Gladys [facility] DIFFERENTIAL 05:23:00 [facility] SARS-COV2/RT-PCR ([facility] & REF 2022-01-[address] [facility] LABS) 19:44:00 [facility] XR KNEE 3 VIEWS RIGHT 2022-01-[address] [facility] [facility] 12:47:00 [facility] COMPLEMENT COMPONENT C3 2022-01-26 Nalam, Nilsa Gladys [facility] 04:38:00 [facility] DOUBLE-STRANDED DNA (DSDNA) 2022-01-26 Nalam, Nilsa Gladys [facility] ANTIBODY 04:38:00 [facility] COMPREHENSIVE METABOLIC 2022-01-26 Nalam, Nilsa Gladys [facility] PANEL 04:38:00 [facility] MAGNESIUM 2022-01-26 Nalam, Nilsa Gladys [facility] 04:38:00 [facility] CBC W/PLT COUNT & AUTO 2022-01-26 Nalam, Nilsa Gladys [facility] DIFFERENTIAL 04:38:00 [facility] PHOSPHORUS 2022-01-[address] [facility] 04:38:00 [facility] HEMOGLOBIN A1C 2022-01-26 Nalam, Nilsa Gladys [facility] 04:38:00 [facility] ANTI-DNA TITER 2022-01-26 Nalam, Nilsa Gladys [facility] 04:38:00 [facility] CBC W/PLT COUNT & AUTO 2022-01-26 [...] Gricelda Arteaga [facility] DIFFERENTIAL 06:40:00 [facility] BASIC METABOLIC PANEL 2022-01-25 G[facility]elda [facility]teaga [facility] 06:40:00 [facility] PT/APTT 2022-01-[address] [facility] 06:40:00 [facility] LACTIC ACID, VENOUS 2022-01-[address] [facility] 06:40:00 [facility] HEPATIC FUNCTION PANEL 2022-01-25 Nalam, Nilsa Gladys [facility] 06:40:00 [facility] MAGNESIUM 2022-01-25 Nalam, Nilsa Gladys [facility] 06:40:00 [facility] PHOSPHORUS 2022-01-25 Nalam, Nilsa Gladys [facility] 06:40:00 [facility] TYPE AND SCREEN, AUTOMATED 2022-01-[address] [facility] 06:40:00 [facility] CBC W/PLT COUNT & AUTO 2022-01-[address] [facility] DIFFERENTIAL 06:40:00 [facility] EKG-SCANNED 2022-01-[address] [facility] 00:00:00 Scanning [facility] BASIC METABOLIC PANEL 2021-12-[address] [facility] 04:08:00 [facility] CBC W/PLT COUNT & AUTO 2021-12-25 Alex Hern[facility]dez [facility] DIFFERENTIAL 04:08:00 [facility] CBC W/PLT COUNT & AUTO 2021-12-25 EdgarAlex alvarez Yolanda [facility] DIFFERENTIAL 04:08:00 [facility] SARS-COV2/RT-PCR ([facility] & REF 2021-12-24 [facility] 16:21:00 [facility] BASIC METABOLIC PANEL 2021-12-24 [facility] 03:16:00 [facility] CBC W/PLT COUNT & AUTO 2021-12-24 Edgar Alex Guerrero [facility] DIFFERENTIAL 03:16:00 [facility] CBC W/PLT COUNT & AUTO 2021-12-24 Edgar, Alex Post [facility] DIFFERENTIAL 03:16:00 [facility] BASIC METABOLIC PANEL 2021-12-23 [facility] 03:08:00 [facility] CBC W/PLT COUNT & AUTO 2021-12-23 Alex Hern[facility]dez Yolanda [facility] DIFFERENTIAL 03:08:00 [facility] CBC W/PLT COUNT & AUTO 2021-12-23 Edgar, Alex Post [facility] DIFFERENTIAL 03:08:00 [facility] BASIC METABOLIC PANEL 2021-12-22 [facility] 03:56:00 [facility] CBC W/PLT COUNT & AUTO 2021-12-22 Alex Hernández Post [facility] DIFFERENTIAL 03:56:00 [facility] COMPLEMENT COMPONENT C4 2021-12-22 RobbyJuan Luisjennifer Guerrero [facility] 03:56:00 [facility] CBC W/PLT COUNT & AUTO 2021-12-22 EdgarAlex [facility] DIFFERENTIAL 03:56:00 [facility] BASIC METABOLIC PANEL 2021-12-21 [facility] 05:21:00 [facility] CBC W/PLT COUNT & AUTO 2021-12-21 EdgarAlex alvarez Post [facility] DIFFERENTIAL 05:21:00 [facility] CBC W/PLT COUNT & AUTO 2021-12-21 Edgar Alex Post [facility] DIFFERENTIAL 05:21:[address] [facility] [address] ABDOMEN/PELVIS WITH IV 2021-12-20 Suhail Man [facility] CONTRAST 06:25:00 [facility] BASIC METABOLIC PANEL 2021-12-20 [facility] 04:59:00 [facility] MAGNESIUM 2021-12-20 Arif, Miker [facility] 04:59:00 [facility] CBC W/PLT COUNT & AUTO 2021-12-20 Alex Hernández Post [facility] DIFFERENTIAL 04:59:00 [facility] CBC W/PLT COUNT & AUTO 2021-12-20 Alex Hernández Yolanda [facility] DIFFERENTIAL 04:59:00 [facility] BASIC METABOLIC PANEL 2021-12-19 Arif, Miker [facility] 04:42:00 [facility] MAGNESIUM 2021-12-19 Arif, Sahar [facility] 04:42:00 [facility] CBC W/PLT COUNT & AUTO 2021-12-19 Edgar Alex Guerrero [facility] DIFFERENTIAL 04:42:00 [facility] CBC W/PLT COUNT & AUTO 2021-12-19 Alex Hernández Yolanda [facility] DIFFERENTIAL 04:42:00 [facility] BASIC METABOLIC PANEL 2021-12-18 Arif, Miker [facility] 04:10:00 [facility] MAGNESIUM 2021-12-18 Arif, Miker [facility] 04:10:00 [facility] CBC W/PLT COUNT & AUTO 2021-12-18 Alex Hernández Yolanda [facility] DIFFERENTIAL 04:10:00 [facility] CBC W/PLT COUNT & AUTO 2021-12-18 Alex Hern[facility]dez Yolanda [facility] DIFFERENTIAL 04:10:00 [facility] SARS-COV2/RT-PCR ([facility] & REF 2021-12-17 [facility] 13:09:00 [facility] BASIC METABOLIC PANEL 2021-12-17 Arif, Miker [facility] 05:40:00 [facility] MAGNESIUM 2021-12-17 Arif, Miker [facility] 05:40:00 [facility] CBC W/PLT COUNT & AUTO 2021-12-17 Edgar Alex Post [facility] DIFFERENTIAL 05:40:00 [facility] CREATINE KINASE (CK) 2021-12-17 Edgar Alex Post [facility] 05:40:00 [facility] CBC W/PLT COUNT & AUTO 2021-12-17 Edgar Alex Post [facility] DIFFERENTIAL 05:40:00 [facility] BASIC METABOLIC PANEL 2021-12-16 Arif, Sahar [facility] 04:54:00 [facility] MAGNESIUM 2021-12-16 Arif, Sahar [facility] 04:54:00 [facility] HEPATIC FUNCTION PANEL 2021-12-16 Alex Hern[facility]dez Post [facility] 04:54:00 [facility] CBC W/PLT COUNT & AUTO 2021-12-16 Alex Hernández Yolanda [facility] DIFFERENTIAL 04:54:00 [facility] CBC W/PLT COUNT & AUTO 2021-12-16 Alex Hernández Yolanda [facility] DIFFERENTIAL 04:54:00 [facility] MAGNESIUM 2021-12-15 Arif, Sahar [facility] 12:00:00 [facility] BASIC METABOLIC PANEL 2021-12-15 Arif, Sahar [facility] 12:00:00 [facility] CBC (HEMOGRAM ONLY) 2021-12-15 Alex Hernández Yolanda [facility] 12:00:00 [facility] XR CHEST 1 VIEW PORTABLE / 2021-12-[address] [facility] BEDSIDE 10:17:00 [facility] MAGNESIUM 2021-12-15 Arif, Sahar [facility] 05:49:[address] [facility] [address] ABDOMEN/PELVIS WITH IV 2021-12-[address] [facility] CONTRAST 10:05:00 [facility] CBC W/PLT COUNT & AUTO 2021-12-14 Arif, Miker [facility] DIFFERENTIAL 05:39:00 [facility] [facility] CBC W/PLT COUNT & AUTO 2021-12-14 Arif, Miker [facility] DIFFERENTIAL 05:39:00 [facility] POCT-GLUCOSE METER 2021-12-[address] [facility] 07:29:00 [facility] BASIC METABOLIC PANEL 2021-12-13 Arif, Sahar [facility] 07:06:00 [facility] MAGNESIUM 2021-12-13 Arif, Sahar [facility] 07:06:00 [facility] WOUND CULTURE + GRAM STAIN 2021-12-12 Arif, Sahar [facility] 18:11:00 [facility] CBC W/PLT COUNT & AUTO 2021-12-12 Arif, Sahar [facility] DIFFERENTIAL 06:12:00 [facility] BASIC METABOLIC PANEL 2021-12-12 Arif, Sahar [facility]:12[facility]00 [facility] MAGNESIUM 2021-12-12 Arif, Miker [facility] 06:12:00 [facility] CBC W/PLT COUNT & AUTO 2021-12-12 Arif, Miker [facility] DIFFERENTIAL 06:12:00 [facility] CT DRAINAGE W CATH PLACEMENT 2021-12-11 Arif, Miker [facility] 18:10:00 [facility] BASIC METABOLIC PANEL 2021-12-11 Arif, Miker [facility] 05:56:00 [facility] MAGNESIUM 2021-12-11 Arif, Miker [facility] 05:56:00 [facility] CT ABDOMEN/PELVIS WITH IV 2021-12-[address] [facility] CONTRAST 13:21:00 [facility] SARS-COV2/RT-PCR ([facility] & REF 2021-12-10 Arif, Miker [facility]S) 12:34:00 [facility] CBC W/PLT COUNT & AUTO 2021-12-10 Arif, Melissa [facility] 05:35:00 [facility] BASIC METABOLIC PANEL 2021-12-10 Arif, Melissa [facility] 05:35:00 [facility] MAGNESIUM 2021-12-10 Arif, Miker [facility] 05:35:00 [facility] CBC W/PLT COUNT & AUTO 2021-12-10 Arif, Miker [facility] DIFFER[facility] 05:35:00 [facility] MISCELLANEOUS LAB ORDER 2021-12-[address] [facility] 17:08:00 [facility] BASIC METABOLIC PANEL 2021-12-09 Arif, Melissa [facility] 04:11:00 [facility] MAGNESIUM 2021-12-09 Arif, Miker [facility] 04:11:00 [facility] DOUBLE-STRANDED DNA (DSDNA) 2021-12-09 Arif, Melissa [facility] ANTIBODY 04:11:00 [facility] COMPLEMENT COMPONENT C4 2021-12-09 Arif, Miker [facility] 04:11:00 [facility] PROTHROMBIN TIME/INR 2021-12-09 Ar[facility] Melissa [facility] 04:11:00 [facility] ANTI-DNA TITER 2021-12-09 Arif, Sahar [facility] 04:11:00 [facility] URINALYSIS W/ MICROSCOPIC 2021-12-08 [facility], Mona Payneid [facility] 22:19:00 [facility] PROTEIN, RANDOM URINE 2021-12-08 [facility], Mona Guerrero [facility] 22:18:00 [facility] CREATININE, RANDOM URINE 2021-12-08 [facility], [facility] 22:18:00 [facility] POCT-GLUCOSE METER 2021-12-08 Arif, Melissa [facility] 10:20:00 [facility] BASIC METABOLIC PANEL 2021-12-08 Adio, Titilola [facility]. [facility] 05:32:00 [facility] HEPATIC FUNCTION PANEL 2021-12-08 Adio, Titilola R. [facility] 05:32:00 [facility] LIPID PANEL 2021-12-08 Adio, Titilola R. [facility] 05:32:00 [facility] MAGNESIUM 2021-12-08 Adio, Titilola R. [facility] 05:32:00 [facility] PHOSPHORUS 2021-12-08 Adio, Titilola R. [facility] 05:32:00 [facility] CBC W/PLT COUNT & AUTO 2021-12-08 Adio, Titilola R. [facility] DIFFERENTIAL 05:32:00 [facility] HEMOGLOBIN A1C 2021-12-08 Adio, Titilola R. [facility] 05:32:00 [facility] CBC W/PLT COUNT & AUTO 2021-12-08 Adio, Titilola R. [facility] DIFFERENTIAL 05:32:00 [facility] BLOOD CULTURE 2021-12-07 Laith, Khushi [facility] 14:13:[address] [facility] POCT-GLUCOSE METER 2021-12-07 Laith, Khushi [facility] 13:44:[address] [facility] CBC W/PLT COUNT & AUTO 2021-12-07 Laith, Khushi [facility] DIFFERENTIAL 13:39:[address] [facility] LACTIC ACID, VENOUS 2021-12-07 Laith, Khushi [facility] 13:[facility]:[address] [facility] COMPREHENSIVE METABOLIC 2021-12-07 Laith, Khushi [facility] PANEL 13:39:[address] [facility] PROTHROMBIN TIME/INR 2021-12-07 Ozuna, Khushi [facility] 13:39:[address] [facility] APTT 2021-12-07 Ozuna, Khushi [facility] 13:39:[address] [facility] LIPASE 2021-12-07 Ozuna, Khushi [facility] 13:39:[address] [facility] CBC W/PLT COUNT & AUTO 2021-12-07 Ozuna, Khushi [facility] DI[facility] 13:39:[address] [facility] BUN/CREATININE RATIO W/EGFR 2021-10-19 [facility] 13:53:50 Medicine POCT-GLUCOSE METER 2021-10-[address] [facility] 11:51:00 [facility] POCT-GLUCOSE METER 2021-10-[address] [facility] 07:14:00 [facility] BASIC METABOLIC PANEL 2021-10-[address] [facility] 05:42:00 [facility] HEPATIC FUNCTION PANEL 2021-10-[address] [facility] 05:42:00 [facility] MAGNESIUM 2021-10-[address] [facility] 05:42:00 [facility] PHOSPHORUS 2021-10-[address] [facility] 05:42:00 [facility] CBC W/PLT COUNT & AUTO 2021-10-[address] [facility] DIFFERENTIAL 05:42:00 [facility] CBC W/PLT COUNT & AUTO 2021-10-[address] [facility] DIFFERENTIAL 05:42:00 [facility] POCT-GLUCOSE METER 2021-10-[address] [facility] 21:53:00 [facility] POCT-GLUCOSE METER 2021-10-[address] [facility] 16:39:00 [facility] POCT-GLUCOSE METER 2021-10-[address] [facility] 11:35:00 [facility] BASIC METABOLIC PANEL 2021-10-[address] [facility] 11:05:00 [facility] HEPATIC FUNCTION PANEL 2021-10-[address] [facility] 11:05:00 [facility] MAGNESIUM 2021-10-[address] [facility] 11:05:00 [facility] PHOSPHORUS 2021-10-[address] [facility] 11:05:00 [facility] CBC W/PLT COUNT & AUTO 2021-10-[address] [facility] DIFFERENTIAL 11:05:00 [facility] CBC W/PLT COUNT & AUTO 2021-10-[address] [facility] DIFFERENTIAL 11:05:00 [facility] POCT-GLUCOSE METER 2021-10-[address] [facility] 09:25:00 [facility] POCT-GLUCOSE METER 2021-10-[address] [facility] 20:30:00 [facility] SARS-COV2/RT-PCR (HS & REF 2021-10-[address] [facility] 19:22:00 [facility] POCT-GLUCOSE METER 2021-10-[address] [facility] 17:32:00 [facility] POCT-GLUCOSE METER 2021-10-[address] [facility] 11:58:00 [facility] POCT-GLUCOSE METER 2021-10-[address] [facility] 08:40:00 [facility] BASIC METABOLIC PANEL 2021-10-[address] [facility] 04:39:00 [facility] HEPATIC FUNCTION PANEL 2021-10-[address] [facility] 04:39:00 [facility] MAGNESIUM 2021-10-[address] [facility] 04:39:00 [facility] PHOSPHORUS 2021-10-[address] [facility] 04:39:00 [facility] CBC W/PLT COUNT & AUTO 2021-10-[address] [facility] DIFFERENTIAL 04:39:00 [facility] CBC W/PLT COUNT & AUTO 2021-10-[address] [facility] DIFFERENTIAL 04:39:00 [facility] POCT-GLUCOSE METER 2021-10-[address] [facility] 21:29:00 [facility] POCT-GLUCOSE METER 2021-10-[address] [facility] 16:23:00 [facility] POCT-GLUCOSE METER 2021-10-[address] [facility] 10:54:00 [facility] POCT-GLUCOSE METER 2021-10-[address] [facility] 07:37:00 [facility] BASIC METABOLIC PANEL 2021-10-[address] [facility] 04:03:00 [facility] HEPATIC FUNCTION PANEL 2021-10-07 Francesca, [facility] 04:03:00 [facility] MAGNESIUM 2021-10-07 Franecsca, [facility] 04:03:00 [facility] PHOSPHORUS 2021-10-07 Alex-Gilles, [facility] 04:03:00 [facility] POCT-GLUCOSE METER 2021-10-[address] [facility] 21:21:00 [facility] POCT-GLUCOSE METER 2021-10-[address] [facility] 16:37:00 [facility] POCT-GLUCOSE METER 2021-10-[address] [facility] 12:35:00 [facility] BASIC METABOLIC PANEL 2021-10-[address] [facility] 05:03:00 [facility] HEPATIC FUNCTION PANEL 2021-10-06 Alex-Gilles, [facility] 05:03:00 [facility] MAGNESIUM 2021-10-06 Alex-Gilles, [facility] 05:03:00 [facility] PHOSPHORUS 2021-10-06 Alex-Gilles, [facility] 05:03:00 [facility] CBC W/PLT COUNT & AUTO 2021-10-[address] [facility] DIFFERENTIAL 05:03:00 [facility] CBC W/PLT COUNT & AUTO 2021-10-[address] [facility] DIFFERENTIAL 05:03:00 [facility] POCT-GLUCOSE METER 2021-10-[address] [facility] 21:08:00 [facility] POCT-GLUCOSE METER 2021-10-[address] [facility] 16:19:00 [facility] POCT-GLUCOSE METER 2021-10-[address] [facility] 11:23:00 [facility] POCT-GLUCOSE METER 2021-10-[address] [facility] 07:50:00 [facility] MAGNESIUM 2021-10-[address] [facility] 06:03:00 [facility] PHOSPHORUS 2021-10-[address] [facility] 06:03:00 [facility] CBC W/PLT COUNT & AUTO 2021-10-[address] [facility] DIFFERENTIAL 06:03:00 [facility] CBC W/PLT COUNT & AUTO 2021-10-[address] [facility] DIFFERENTIAL 06:03:00 [facility] BASIC METABOLIC PANEL 2021-10-[address] [facility] 06:03:00 [facility] HEPATIC FUNCTION PANEL 2021-10-[address] [facility] 06:03:00 [facility] SARS-COV2/RT-PCR (HS & REF 2021-10-[address] [facility]) 05:55:00 [facility] POCT-GLUCOSE METER 2021-10-[address] [facility] 21:11:00 [facility] POCT-GLUCOSE METER 2021-10-[address] [facility] 17:22:00 [facility] POCT-GLUCOSE METER 2021-10-[address] [facility] 11:19:00 [facility] CBC W/PLT COUNT & AUTO 2021-10-[address] [facility] DIFFERENTIAL 05:54:00 [facility] BASIC METABOLIC PANEL 2021-10-[address] [facility] 05:54:00 [facility] HEPATIC FUNCTION PANEL 2021-10-[address] [facility] 05:54:00 [facility] MAGNESIUM 2021-10-[address] [facility] 05:54:00 [facility] PHOSPHORUS 2021-10-[address] [facility] 05:54:00 [facility] CBC W/PLT COUNT & AUTO 2021-10-[address] [facility] DIFFERENTIAL 05:54:00 [facility] POCT-GLUCOSE METER 2021-10-[address] [facility] 16:36:00 [facility] POCT-GLUCOSE METER 2021-10-[address] [facility] 11:34:00 [facility] POCT-GLUCOSE METER 2021-10-[address] [facility] 04:57:00 [facility] BASIC METABOLIC PANEL 2021-10-[address] [facility] 04:52:00 [facility] HEPATIC FUNCTION PANEL 2021-10-[address] [facility] 04:52:00 [facility] MAGNESIUM 2021-10-[address] [facility] 04:52:00 [facility] CBC (HEMOGRAM ONLY) 2021-10-[address] [facility] 04:52:00 [facility] PHOSPHORUS 2021-10-[address] [facility] 04:52:00 [facility] BASIC METABOLIC PANEL 2021-10-[address] [facility] 20:40:00 [facility] CBC (HEMOGRAM ONLY) 2021-10-[address] [facility] 20:40:00 [facility] MAGNESIUM 2021-10-[address] [facility] 20:40:00 [facility] PHOSPHORUS 2021-10-[address] [facility] 20:40:00 [facility] POCT-GLUCOSE METER 2021-10-[address] [facility] 19:37:00 [facility] RRL CRITICAL LABS 2021-10-02 Lissette, [facility]ado [facility] (ABG,NA,K,H&H,GLUCOSE) 17:55:12 [facility] enter CALCIUM, IONIZED 2021-10-02 Lissette, Amaod [facility] 17:55:12 [facility] BLOOD GAS, ARTERIAL 2021-10-02 Lissette, [facility]ado [facility] 17:55:12 [facility] SODIUM NA-STAT LAB 2021-10-02 Lissette, [facility]ado [facility] 17:55:12 [facility] POTASSIUM-STAT LAB 2021-10-02 Lissette, [facility]ado [facility] 17:55:12 [facility] GLUCOSE-STAT LAB 2021-10-02 Lissette, [facility]ado [facility] 17:55:12 [facility] HGB/HCT (H&H) - STAT LAB 2021-10-02 Lissette, [facility]ado [facility] 17:55:12 [facility] FUNGUS CULTURE + SMEAR 2021-10-02 [facility] 17:47:00 [facility] SURGICALLY OBTAINED CULTURE 2021-10-[address] [facility] + GRAM STAIN 17:47:00 [facility] ANAEROBIC CULTURE 2021-10-[address] [facility] 17:47:00 [facility] AFB CULTURE + SMEAR 2021-10-[address] [facility] (NON-SPUTUM) 17:47:00 [facility] WASHOUT, ABDOMINAL CAVITY 2021-10-02 Lissette, [facility]ado [facility] 16:47:00 [facility] POCT-GLUCOSE METER 2021-10-[address] [facility] 15:51:00 [facility] VANCOMYCIN LEVEL, TROUGH 2021-10-[address] [facility] 13:39:00 [facility] POCT-GLUCOSE METER 2021-10-[address] [facility] 10:50:00 [facility] POCT-GLUCOSE METER 2021-10-[address] [facility] 07:17:00 [facility] BASIC METABOLIC PANEL 2021-10-02 [facility] 05:48:00 [facility] HEPATIC FUNCTION PANEL 2021-10-[address] [facility] 05:48:00 [facility] MAGNESIUM 2021-10-[address] [facility] 05:48:00 [facility] CBC (HEMOGRAM ONLY) 2021-10-[address] [facility] 05:48:00 [facility] PHOSPHORUS 2021-10-[address] [facility] 05:48:00 [facility] POCT-GLUCOSE METER 2021-10-[address] [facility] 21:35:00 [facility] POCT-GLUCOSE METER 2021-10-[address] [facility] 16:42:00 [facility] SARS-COV2/RT-PCR (HS & REF 2021-10-[address] [facility] 14:49:00 [facility] TYPE AND SCREEN, AUTOMATED 2021-10-[address] [facility] 14:48:00 [facility] POCT-GLUCOSE METER 2021-10-[address] [facility] 12:11:00 [facility] 2D ECHO W/ DOPPLER 2021-10-[address] [facility] (CW/PW/COLOR) 09:32:[address] [facility] [address] ABD/PELVIS - PANCREAS 2021-10-01 Matty Lacy [facility] EVALUATION 07:54:00 [facility] BASIC METABOLIC PANEL 2021-10-[address] [facility] 04:54:00 [facility] HEPATIC FUNCTION PANEL 2021-10-[address] [facility] 04:54:00 [facility] MAGNESIUM 2021-10-[address] [facility] 04:54:00 [facility] CBC (HEMOGRAM ONLY) 2021-10-[address] [facility] 04:54:00 [facility] PHOSPHORUS 2021-10-[address] [facility] 04:54:00 [facility] PREPARE LEUKO-REDUCED RBC 2021-09-[address] [facility] 23:54:00 [facility] POCT-GLUCOSE METER 2021-09-30 Bartsch, Kathy [facility] 22:32:00 [facility] BLOOD CULTURE 2021-09-30 Bartkelsey, Kathy [facility] 20:24:00 [facility] BLOOD CULTURE 2021-09-30 Rebecca, Kathy [facility] 20:23:00 [facility] POCT-GLUCOSE METER 2021-09-[address] [facility] 17:01:00 [facility] POCT-GLUCOSE METER 2021-09-[address] [facility] 11:33:00 [facility] POCT-GLUCOSE METER 2021-09-[address] [facility] 07:38:00 [facility] DOUBLE-STRANDED DNA (DSDNA) 2021-09-[address] [facility] ANTIBODY 05:18:00 [facility] ANTI-DNA TITER 2021-09-[address] [facility] 05:18:00 [facility] COMPLEMENT COMPONENT C3 2021-09-[address] [facility] 01:32:00 [facility] VANCOMYCIN LEVEL, TROUGH 2021-09-30 Alex Hernández [facility] 01:31:00 [facility] BASIC METABOLIC PANEL 2021-09-[address] [facility] 01:31:00 [facility] HEPATIC FUNCTION PANEL 2021-09-[address] [facility] [facility] 01:31:00 [facility] MAGNESIUM 2021-09-[address] [facility] 01:31:00 [facility] CBC (HEMOGRAM ONLY) 2021-09-[address] [facility] 01:31:00 [facility] PHOSPHORUS 2021-09-[address] [facility] 01:31:00 [facility] PREPARE LEUKO-REDUCED RBC 2021-09-[address] [facility] 23:54:00 [facility] POCT-GLUCOSE METER 2021-09-[address] [facility] 20:44:00 [facility] PROTEIN, RANDOM URINE 2021-09-[address] [facility] 17:45:00 [facility] CREATININE, RANDOM URINE 2021-09-[address] [facility] 17:45:00 [facility] URINALYSIS W/ MICROSCOPIC 2021-09-29 Kathy [facility]andez [facility] 17:45:00 [facility] TRANSFUSE LEUKO-REDUCED RED 2021-09-29 Ra, Carmen [facility] BLOOD CELLS 16:31:00 [facility] TRANSFUSE LEUKO-REDUCED RED 2021-09-29 Ra, Carmen [facility] BLOOD CELLS 12:26:00 [facility] POCT-GLUCOSE METER 2021-09-[address] [facility] 08:03:00 [facility] BASIC METABOLIC PANEL 2021-09-[address] [facility] [facility] 05:09:00 [facility] HEPATIC FUNCTION PANEL 2021-09-[address] [facility] 05:09:00 [facility] MAGNESIUM 2021-09-[address] [facility] 05:09:00 [facility] CBC (HEMOGRAM ONLY) 2021-09-[address] [facility] 05:09:00 [facility] PHOSPHORUS 2021-09-[address] [facility] 05:09:00 [facility] PROTHROMBIN TIME/INR 2021-09-[address] [facility] 05:09:00 [facility] POCT-GLUCOSE METER 2021-09-[address] [facility] 20:39:00 [facility] ECG 12-LEAD 2021-09-28 Unknown, Hl7 Doctor [facility] 18:40:16 [facility] ECG 12-LEAD 2021-09-28 Unknown, Hl7 Doctor [facility] 18:40:16 [facility] ECG 12-LEAD 2021-09-28 Unknown, Hl7 Doctor [facility] 18:40:16 [facility] XR CHEST 1 VIEW PORTABLE / 2021-09-28 Carmen Knapp [facility] BEDSIDE 18:22:00 [facility] HEMOGLOBIN AND HEMATOCRIT 2021-09-28 Kathy Fernandez [facility] 17:38:[address] [facility] [address] DRAINAGE ABDOMINAL 2021-09-[address] [facility] 16:51:00 [facility] AMYLASE, BODY FLUID 2021-09-[address] [facility] 16:35:00 [facility] BODY FLUID CULTURE + GRAM 2021-09-28 Kathy Fernandez [facility] STAIN 16:34:00 [facility] ANAEROBIC CULTURE 2021-09-[address] [facility] 16:34:00 [facility] AMYLASE 2021-09-[address] [facility] 12:17:00 [facility] POCT-GLUCOSE METER 2021-09-[address] [facility] 12:09:00 [facility] TRANSFUSE LEUKO-REDUCED RED 2021-09-28 Marco Antonio Correiacajennifer [facility] BLOOD CELLS 08:37:00 [facility] POCT-GLUCOSE METER 2021-09-[address] [facility] 07:47:00 [facility] ABORH, MANUAL 2021-09-[address] [facility] 07:34:00 [facility] TYPE AND SCREEN, AUTOMATED 2021-09-[facility] 06:10:00 [facility] CBC W/PLT COUNT & AUTO 2021-09-28 [facility] DIFFERENTIAL 03:59:00 [facility] (CELLAVISION MANUAL DIFF) 2021-09-28 [facility] 03:59:00 [facility] BASIC METABOLIC PANEL 2021-09-28 [facility] 03:59:00 [facility] HEPATIC FUNCTION PANEL 2021-09-28 [facility] 03:59:00 [facility] PROTHROMBIN TIME/INR 2021-09-28 [facility] 03:59:00 [facility] MAGNESIUM 2021-09-28 [facility] 03:59:00 [facility] PHOSPHORUS 2021-09-28 ChaddMarco Antonio melendezcajennifer [facility] 03:59:00 [facility] CBC W/PLT COUNT & AUTO 2021-09-28 [facility] DIFFERENTIAL 03:59:00 [facility] LACTIC ACID, VENOUS 2021-09-[address] [facility] [facility] 03:59:00 [facility] SARS-COV2/RT-PCR ([facility] & REF 2021-09-[address] [facility] 02:17:[address] [facility] [address] ABDOMEN/PELVIS WITH IV 2021-09-[address] [facility] CONTRAST 23:04:00 [facility] CBC W/PLT COUNT & AUTO 2021-09-27 Kimmy Nunn R [facility] DIFFERENTIAL 21:35:00 [facility] (CELLAVISION MANUAL DIFF) 2021-09-27 Kimmy Nunn R [facility] 21:35:00 [facility] BLOOD CULTURE 2021-09-27 Yaritza Nunnsa R [facility] 21:35:00 [facility] BLOOD CULTURE IDENTIFICATION 2021-09-27 Kimmy Nunn R [facility] PANEL 21:35:00 [facility] CBC W/PLT COUNT & AUTO 2021-09-27 Kimmy Nunn R [facility] DIFFERENTIAL 21:35:00 [facility] COMPREHENSIVE METABOLIC 2021-09-27 [facility] Nunn [facility] PANEL 21:35:00 [facility] LIPASE 2021-09-27 Kimmy Nunn R [facility] 21:35:00 [facility] LACTIC ACID, VENOUS 2021-09-27 Yaritza Nunnsa R [facility] 21:35:00 [facility] PROTHROMBIN TIME/INR 2021-09-[address] [facility] 21:35:00 [facility] XR CHEST 1 VIEW PORTABLE / 2021-09-27 [address] [facility] BED[facility] 20:27:00 [facility] CRITICAL CARE 2021-09-[address] [facility] 20:07:17 [facility] POCT-GLUCOSE METER 2021-09-22 Eli, Irina [facility] 16:25:00 [facility] FECAL LEUKOCYTES 2021-09-[address] [facility] 14:35:00 [facility] POCT-GLUCOSE METER 2021-09-22 Eli, Irina [facility] 11:27:00 [facility] POCT-GLUCOSE METER 2021-09-22 Eli, Irina [facility] 07:31:00 [facility] MAGNESIUM 2021-09-22 Ukani, Nilam [facility] 04:34:00 [facility] BASIC METABOLIC PANEL 2021-09-22 Castillo Narayan [...] Narayan [facility] DIFFERENTIAL 04:27:00 [facility] MAGNESIUM 2021-09-21 Ukani, Nilam [facility] 04:27:00 [facility] COMPREHENSIVE METABOLIC 2021-09-[address] [facility] PANEL 04:27:00 [facility] CBC W/PLT COUNT & AUTO 2021-09-[address] [facility] DIFFERENTIAL 04:27:00 [facility] FERRITIN 2021-09-[address] [facility] 04:27:00 [facility] POCT-GLUCOSE METER 2021-09-20 Eli, Irina [facility] 22:54:00 [facility] POCT-GLUCOSE METER 2021-09-20 Eli, Irina [facility] 15:43:00 [facility] POCT-GLUCOSE METER 2021-09-20 Eli, Irina [facility] 11:26:00 [facility] POCT-GLUCOSE METER 2021-09-[address] [facility] 08:00:00 [facility] CBC W/PLT COUNT & AUTO 2021-09-20 Castillo Narayan N [facility] DIFFERENTIAL 03:44:00 [facility] MAGNESIUM 2021-09-20 Ukani, Nilam [facility] 03:44:00 [facility] COMPREHENSIVE METABOLIC 2021-09-[address] [facility] PANEL 03:44:00 [facility] CBC W/PLT COUNT & AUTO 2021-09-[address] [facility] DIFFERENTIAL 03:44:00 [facility] FERRITIN 2021-09-[address] [facility] 03:44:00 [facility] POCT-GLUCOSE METER 2021-09-[address] [facility] 22:13:00 [facility] POCT-GLUCOSE METER 2021-09-[address] [facility] 17:40:00 [facility] MAGNESIUM 2021-09-[address] [facility] 15:24:00 [facility] POCT-GLUCOSE METER 2021-09-[address] [facility] 13:28:00 [facility] POCT-GLUCOSE METER 2021-09-[address] [facility] 08:10:00 [facility] CBC W/PLT COUNT & AUTO 2021-09-[address] [facility] DIFFERENTIAL 05:35:00 [facility] SARS-COV2/RT-PCR ([facility] & REF 2021-09-[address] [facility]) 05:35:00 [facility] MAGNESIUM 2021-09-19 Nilam Mauro [facility] 05:35:00 [facility] COMPREHENSIVE METABOLIC 2021-09-[address] [facility] PANEL 05:35:00 [facility] CBC W/PLT COUNT & AUTO 2021-09-[address] [facility] DIFFERENTIAL 05:35:00 [facility] FERRITIN 2021-09-[address] [facility] 05:35:00 [facility] POCT-GLUCOSE METER 2021-09-18 Rebecca Cuellar [facility] 21:29:00 [facility] POCT-GLUCOSE METER 2021-09-[address] [facility] 16:56:00 [facility] POCT-GLUCOSE METER 2021-09-18 Rebecca Cuellar P. [facility] 12:15:00 [facility] POCT-GLUCOSE METER 2021-09-[address] [facility] 08:35:00 [facility] CBC W/PLT COUNT & AUTO 2021-09-[address] [facility] DIFFERENTIAL 06:58:00 [facility] MAGNESIUM 2021-09-[address] [facility] 06:58:00 [facility] COMPREHENSIVE METABOLIC 2021-09-[address] [facility] PANEL 06:58:00 [facility] CBC W/PLT COUNT & AUTO 2021-09-[address] [facility] DIFFERENTIAL 06:58:00 [facility] POCT-GLUCOSE METER 2021-09-[address] [facility] 22:17:00 [facility] POCT-GLUCOSE METER 2021-09-[address] [facility] 17:06:00 [facility] POCT-GLUCOSE METER 2021-09-[address] [facility] 12:18:00 [facility] POCT-GLUCOSE METER 2021-09-[address] [facility] 07:52:00 [facility] CBC W/PLT COUNT & AUTO 2021-09-[address] [facility] DIFFERENTIAL 05:45:00 [facility] MAGNESIUM 2021-09-[address] [facility] 05:45:00 [facility] FERRITIN 2021-09-[address] [facility] 05:45:00 [facility] METABOLIC 2021-09-[address] [facility] PANEL 05:45:00 [facility] CBC W/PLT COUNT & AUTO 2021-09-[address] [facility] DIFFERENTIAL 05:45:00 [facility] CMV PCR, QUANTITATIVE 2021-09-[address] [facility] 05:45:00 [facility] GI PATHOGEN PROFILE BY PCR 2021-09-17 Charmaine Contreras [facility] 05:11:00 [facility] GIARDIA ANTIGEN 2021-09-[address] [facility] 05:05:00 [facility] OVA AND PARASITE EXAMINATION 2021-09-[address] [facility] 04:59:00 [facility] POCT-GLUCOSE METER 2021-09-[address] [facility] 22:07:00 [facility] POCT-GLUCOSE METER 2021-09-[address] [facility] 17:29:00 [facility] POCT-GLUCOSE METER 2021-09-[address] [facility] 11:35:00 [facility] POCT-GLUCOSE METER 2021-09-[address] [facility] 07:52:00 [facility] CBC W/PLT COUNT & AUTO 2021-09-16 Rose Lorenzo [facility] DIFFERENTIAL 06:50:00 [facility] MAGNESIUM 2021-09-[address] [facility] 06:50:00 [facility] CBC W/PLT COUNT & AUTO 2021-09-16 Rose Lorenzo [facility] DIFFERENTIAL 06:50:00 [facility] COMPREHENSIVE METABOLIC 2021-09-[address] [facility] PANEL 06:50:00 [facility] FERRITIN 2021-09-[address] [facility] 06:50:00 [facility] POCT-GLUCOSE METER 2021-09-[address] [facility] 21:28:00 [facility] POCT-GLUCOSE METER 2021-09-[address] [facility] 17:17:00 [facility] BASIC METABOLIC PANEL 2021-09-[address] [facility] 16:38:00 [facility] MAGNESIUM 2021-09-[address] [facility] 16:38:00 [facility] VENOUS DOPPLER LEG, LEFT 2021-09-[address] [facility] 15:25:00 [facility] C. DIFFICILE GDH TOXIN 2021-09-15 Rose Lorenzo [...] M[facility] DIFFERENTIAL 05:04:00 [facility] MAGNESIUM 2021-09-[address] [facility] 05:04:00 [facility] CBC W/PLT COUNT & AUTO 2021-09-15 Maura Rose M. [facility] DIFFERENTIAL 05:04:00 [facility] COMPREHENSIVE METABOLIC 2021-09-[address] [facility] PANEL 05:04:00 [facility] FERRITIN 2021-09-[address] [facility] 05:04:00 [facility] POCT-GLUCOSE METER 2021-09-[address] [facility] 21:12:00 [facility] POCT-GLUCOSE METER 2021-09-[address] [facility] 18:00:00 [facility] FERRITIN 2021-09-[address] [facility] 14:00:00 [facility] POCT-GLUCOSE METER 2021-09-[address] [facility] 12:40:00 [facility] MAGNESIUM 2021-09-[address] [facility] 12:24:00 [facility] [...] DIFFERENTIAL 04:11:00 [facility] CBC W/PLT COUNT & AUTO 2021-09-13 Ukani, Nilam [facility] DIFFERENTIAL 04:11:00 [facility] COMPREHENSIVE METABOLIC 2021-09-13 Ukani, Nilam [facility] PANEL 04:11:00 [facility] MAGNESIUM 2021-09-13 Ukani, Nilam [facility] 04:11:00 [facility] PHOSPHORUS 2021-09-13 Ukani, Nilam [facility] 04:11:00 [facility] POCT-GLUCOSE METER 2021-09-[address] [facility] 21:08:00 [facility] CBC W/PLT COUNT & AUTO 2021-09-12 Ukani, Nilam [facility] DIFFERENTIAL 17:30:00 [facility] CBC W/PLT COUNT & AUTO 2021-09-12 Ukani, Nilam [facility] DIFFERENTIAL 17:30:00 [facility] COMPREHENSIVE METABOLIC 2021-09-12 Ukani, Nilam [facility] PANEL 17:30:00 [facility] MAGNESIUM 2021-09-12 Ukani, Nilam [facility] 17:30:00 [facility] PHOSPHORUS 2021-09-12 Ukani, Nilam [facility] 17:30:00 [facility] HEMOGLOBIN A1C 2021-09-[address] [facility] 17:30:00 [facility] DOUBLE-STRANDED DNA (DSDNA) 2021-09-12 Magadia, Lynette [facility] ANTIBODY 17:30:00 [facility] COMPLEMENT COMPONENT C4 2021-09-12 Maganti, Lynette [facility] 17:30:00 [facility] FERRITIN 2021-09-[address] [facility] 17:30:00 [facility] ANTI-DNA TITER 2021-09-[address] [facility] 17:30:00 [facility] POCT-GLUCOSE METER 2021-09-[address] [facility] 16:59:00 [facility] POCT-GLUCOSE METER 2021-09-[address] [facility] 11:36:00 [facility] XR HIP 2 VIEWS BILATERAL 2021-09-[address] [facility] 10:40:00 [facility] XR SHOULDER COMPLETE 2 VIEWS 2021-09-[address] [facility] MIN RIGHT 10:40:00 [facility] XR HAND 3 VIEWS RIGHT 2021-09-[address] [facility] 10:40:00 [facility] POCT-GLUCOSE METER 2021-09-[address] [facility] 07:29:00 [facility] PROTEIN, RANDOM URINE 2021-09-12 Maganti, [facility] 05:46:00 [facility] CREATININE, RANDOM URINE 2021-09-12 Maganti, Lynette [facility] 05:46:00 [facility] POCT-GLUCOSE METER 2021-09-[address] [facility] 21:23:00 [facility] POCT-GLUCOSE METER 2021-09-[address] [facility] 16:19:00 [facility] POCT-GLUCOSE METER 2021-09-[address] [facility] 11:34:00 [facility] CBC W/PLT COUNT & AUTO 2021-09-[address] [facility] DIFFERENTIAL 09:40:00 [facility] BLOOD CULTURE 2021-09-[address] [facility] 09:40:00 [facility] CBC W/PLT COUNT & AUTO 2021-09-11 Ukani, Nilam [facility] DIFFERENTIAL 09:40:00 [facility] COMPREHENSIVE METABOLIC 2021-09-11 Ukani, Nilam [facility] PANEL 09:40:00 [facility] MAGNESIUM 2021-09-11 Ukani, Nilam [facility] 09:40:00 [facility] PHOSPHORUS 2021-09-11 Ukani, Nilam [facility] 09:40:00 [facility] POCT-GLUCOSE METER 2021-09-[address] [facility] 07:18:[address] [facility] [address] ABDOMEN/PELVIS WITH IV 2021-09-10 Changela, Rose M. [facility] CONTRAST 23:05:00 [facility] POCT-GLUCOSE METER 2021-09-[address] [facility] 20:57:00 [facility] BLOOD CULTURE 2021-09-[address] [facility] 10:38:00 [facility] LACTIC ACID, VENOUS 2021-09-[address] [facility] 10:36:00 [facility] PROTHROMBIN TIME/INR 2021-09-[address] [facility] 10:36:00 [facility] APTT 2021-09-[address] [facility] (CELLAVISION MANUAL DIFF) 2021-09-10 Ukani, Nilam [facility] 05:05:00 [facility] CBC W/PLT COUNT & AUTO 2021-09-10 Ukani, Nilam [facility] DIFFERENTIAL 05:05:00 [facility] COMPREHENSIVE METABOLIC 2021-09-10 Ukani, Nilam [facility] PANEL 05:05:00 [facility] MAGNESIUM 2021-09-10 Ukani, Nilam [facility] 05:05:00 [facility] PHOSPHORUS 2021-09-10 Ukani, Nilam [facility] 05:05:00 [facility] POCT-GLUCOSE METER 2021-09-[address] [facility] 20:57:00 [facility] POCT-GLUCOSE METER 2021-09-[address] [facility] 16:16:00 [facility] COMPREHENSIVE METABOLIC 2021-09-09 Ukani, Nilam [facility] PANEL 14:55:00 [facility] POCT-GLUCOSE METER 2021-09-[address] [facility] 11:25:00 [facility] 2D ECHO MODE W/O DOPPLER 2021-09-09 Babita Cano [facility] 09:55:28 [facility] POCT-GLUCOSE METER 2021-09-09 Curtisjordi Rose CortneyAmanda [facility] 06:44:00 [facility] POCT-GLUCOSE METER 2021-09-08 Curtisjordi Rose M. [facility] 21:08:00 [facility] POCT-GLUCOSE METER 2021-09-08 Maura Rose M. [facility] 19:41:00 [facility] POCT-GLUCOSE METER 2021-09-08 Maura Rose M. [facility] 11:25:00 [facility] POCT-GLUCOSE METER 2021-09-08 Maura Rose M. [facility] 09:10:00 [facility] POCT-GLUCOSE METER 2021-09-[address] [facility] 05:04:00 [facility] CBC W/PLT COUNT & AUTO 2021-09-[address] [facility] DIFFERENTIAL 04:20:00 [facility] CBC W/PLT COUNT & AUTO 2021-09-[address] [facility] DIFFERENTIAL 04:20:00 [facility] COMPREHENSIVE METABOLIC 2021-09-[address] [facility] PANEL 04:20:00 [facility] MAGNESIUM 2021-09-[address] [facility] 04:20:00 [facility] PHOSPHORUS 2021-09-[address] [facility] 04:20:00 [facility] POCT-GLUCOSE METER 2021-09-[address] [facility] 23:09:00 [facility] POCT-GLUCOSE METER 2021-09-07 Alix Jones-Ambreen [facility] 18:43:00 [facility] HAPTOGLOBIN 2021-09-[address] [facility] 12:25:00 [facility] FIBRINOGEN 2021-09-[address] [facility] 12:25:00 [facility] VANCOMYCIN LEVEL, TROUGH 2021-09-07 David De La Vega [facility] 12:25:00 [facility] HEMOGLOBIN AND HEMATOCRIT 2021-09-[address] [facility] 12:25:00 [facility] COMPREHENSIVE METABOLIC 2021-09-[address] [facility] PANEL 12:24:00 [facility] MAGNESIUM 2021-09-[address] 12:24:00 [facility] PHOSPHORUS 2021-09-[address] [facility] 12:24:00 [facility] LIPASE 2021-09-[address] [facility] 12:24:00 [facility] PROCALCITONIN 2021-09-07 [facility], Babita [facility] 12:24:00 [facility] HEPATIC FUNCTION PANEL 2021-09-07 [facility] 12:24:00 [facility] POCT-GLUCOSE METER 2021-09-[address] [facility] 12:01:00 [facility] URINALYSIS W/ REFLEX URINE 2021-09-[address] [facility] CULTURE 11:58:00 [facility] CBC W/PLT COUNT & AUTO 2021-09-[address] [facility] DIFFERENTIAL 05:29:00 [facility] (CELLAVISION MANUAL DIFF) 2021-09-07 [facility]de [facility] 05:29:00 [facility] CBC W/PLT COUNT & AUTO 2021-09-[address] [facility] DIFFERENTIAL 05:29:00 [facility] LACTIC ACID, VENOUS 2021-09-[address] [facility] 05:29:00 [facility] B-TYPE NATRIURETIC FACTOR 2021-09-07 Tiera [facility]overde [facility] 05:29:00 [facility] PERIPHERAL BLOOD SMEAR - 2021-09-[address] [facility] PATHOLOGIST REVIEW 05:29:00 [facility] POCT-BLOOD GASES, ARTERIAL 2021-09-[address] [facility] 02:53:00 [facility] POCT-SODIUM 2021-09-[address] [facility] 02:53:00 [facility] POCT-POTASSIUM 2021-09-[address] [facility] 02:53:00 [facility] POCT-HEMOGLOBIN 2021-09-[address] [facility] 02:53:00 [facility] POCT-HEMATOCRIT 2021-09-[address] [facility] 02:53:00 [facility] POCT-GLUCOSE 2021-09-[address] [facility] 02:53:00 [facility] XR CHEST 1 VIEW PORTABLE / 2021-09-[address] [facility] BEDSIDE 02:51:00 [facility] ECG 12-LEAD 2021-09-[address] [facility] 01:42:00 [facility] ECG 12-LEAD 2021-09-07 Unknown, Hl7 Doctor [facility] 01:42:00 [facility] ECG 12-LEAD 2021-09-07 Unknown, Hl7 Doctor [facility] 01:42:00 [facility] ECG 12-LEAD 2021-09-[address] [facility] 01:37:32 [facility] ECG 12-LEAD 2021-09-07 Unknown, Hl7 Doctor [facility] 01:37:32 [facility] ECG 12-LEAD 2021-09-07 Unknown, Hl7 Doctor [facility] 01:37:32 [facility] BASIC METABOLIC PANEL 2021-09-07 Shama [facility]enthalcata [facility] 01:05:00 [facility] MAGNESIUM 2021-09-07 Mk [address]enth[address]l Eveliacata [facility] 01:05:00 [facility] PHOSPHORUS 2021-09-[address] [facility] 01:05:00 [facility] LACTATE DEHYDROGENASE (LDH) 2021-09-[address] [facility] 01:05:00 [facility] BILIRUBIN, DIRECT 2021-09-[address] [facility] 01:05:00 [facility] POCT-GLUCOSE METER 2021-09-06 Mk [address]enthalll Juliuskati [facility] 23:58:00 [facility] POCT-GLUCOSE METER 2021-09-06 Galo [address]ama Angulo [facility] 15:46:00 [facility] MRSA SCREEN 2021-09-06 Nj, Nilam [facility] 12:58:00 [facility] POCT-GLUCOSE METER 2021-09-06 Galo, Shama Juliusbonniecata [facility] 12:53:00 [facility] POCT-GLUCOSE METER 2021-09-[address] [facility] 07:29:00 [facility] URINALYSIS W/ MICROSCOPIC 2021-09-[address] [facility] 05:28:00 [facility] PROTEIN, RANDOM URINE [facility]-09-[facility] 05:28:00 [facility] CREATININE, RANDOM URINE 2021-09-[address] [facility] 05:28:00 [facility] COMPLEMENT COMPONENT C4 2021-09-[address] [facility] 05:14:00 [facility] VITAMIN D, 25-HYDROXY 2021-09-06 Shama [facility]enthal [facility] 05:14:00 [facility] TSH/FREE T4 IF INDICATED 2021-09-06 Nj, Nilam [facility] 05:14:00 [facility] XR CHEST 1 VIEW PORTABLE / 2021-09-06 Kareem Calhoun [facility] 02:18:00 [facility] BLOOD CULTURE 2021-09-[address] [facility] 02:06:00 [facility] CBC W/PLT COUNT & AUTO 2021-09-[address] [facility] DIFFERENTIAL 02:01:00 [facility] (CELLAVISION MANUAL DIFF) 2021-09-06 Shama Ros[address] [facility] 02:01:00 [facility] BLOOD CULTURE 2021-09-[address] [facility] 02:01:00 [facility] CBC W/PLT COUNT & AUTO 2021-09-[address] [facility] DIFFERENTIAL 02:01:00 [facility] LACTIC ACID, VENOUS 2021-09-[address] [facility] 02:01:00 [facility] PHOSPHORUS 2021-09-06 lon, Nilam [facility] 02:00:00 [facility] MAGNESIUM 2021-09-[address] [facility] 02:00:00 [facility] COMPREHENSIVE METABOLIC 2021-09-[address] [facility] PANEL 02:00:00 [facility] SARS-COV2/RT-PCR (HS & REF 2021-09-[address] [facility]) 01:54:00 [facility] ECG 12-LEAD 2021-09-[address] [facility] 01:44:10 [facility] POCT-GLUCOSE METER 2021-09-[address] [facility] 01:04:00 [facility] BASIC METABOLIC PANEL 2021-09-05 Mk Rosenthalll Eveliacata [facility] 19:09:00 [facility] MAGNESIUM 2021-09-05 Galo, Shama Evelial [facility] 19:09:00 [facility] PHOSPHORUS 2021-09-05 Galo, Shama Evelial [facility] 19:09:00 [facility] POCT-GLUCOSE METER 2021-09-[address] [facility] 19:00:00 [facility] DOUBLE-STRANDED DNA (DSDNA) 2021-09-05 Maganti, Lynette [facility] ANTIBODY 16:26:00 [facility] FERRITIN 2021-09-[address] [facility] 16:26:00 [facility] ANTI-DNA TITER 2021-09-05 Magadia, Lynette [facility] 16:26:00 [facility] POCT-GLUCOSE METER 2021-09-[address] [facility] 12:11:00 [facility] POCT-GLUCOSE METER 2021-09-[address] [facility] 06:34:00 [facility] COMPREHENSIVE METABOLIC 2021-09-05 Ukani, Nilam [facility] PANEL 04:46:00 [facility] CBC (HEMOGRAM ONLY) 2021-09-05 Ukani, Nilam [facility] 04:46:00 [facility] CALCIUM, IONIZED 2021-09-[address] [facility] 04:46:00 [facility] BASIC METABOLIC PANEL 2021-09-05 Shama [facility]enthall [facility] 00:40:00 [facility] MAGNESIUM 2021-09-[address] [facility] 00:40:00 [facility] PHOSPHORUS 2021-09-[address] [facility] 00:40:00 [facility] POCT-GLUCOSE METER 2021-09-[address] [facility] 23:48:00 [facility] CT ABDOMEN/PELVIS WITH IV 2021-09-04 Uklon, Nilam [facility] CONTRAST 21:08:00 [facility] CTA CHEST FOR PULMONARY 2021-09-04 Galo Shama Altamiranol [facility] EMBOLUS 21:08:00 [facility] POCT-GLUCOSE METER 2021-09-04 Mk Rosenthalll Juliusbonniel [facility] 18:12:00 [facility] CALCIUM 2021-09-04 Uklon, Nilam [facility] 14:09:00 [facility] POCT-GLUCOSE METER 2021-09-[address] [facility] 13:06:00 [facility] ECG 12-LEAD 2021-09-04 Uklon, Nilam [facility] 08:09:50 [facility] POCT-GLUCOSE METER 2021-09-[address] [facility] 06:04:00 [facility] CBC W/PLT COUNT & AUTO 2021-09-04 Ukani, Nilam [facility] DIFFERENTIAL 04:12:00 [facility] COMPREHENSIVE METABOLIC 2021-09-04 Ukani, Nilam [facility] PANEL 04:12:00 [facility] MAGNESIUM 2021-09-04 Ukani, Nilam [facility] 04:12:00 [facility] CBC W/PLT COUNT & AUTO 2021-09-04 Ukani, Nilam [facility] DIFFERENTIAL 04:12:00 [facility] URINE CULTURE 2021-09-04 Ukani, Nilam [facility] 00:21:00 [facility] URINALYSIS W/ REFLEX URINE 2021-09-04 Uk[facility], [facility]am [facility] CULTURE 00:21:00 [facility] POCT-GLUCOSE METER 2021-09-[address] [facility] 00:14:00 [facility] POCT-GLUCOSE METER 2021-09-[address] [facility] 17:51:00 [facility] CBC W/PLT COUNT & AUTO 2021-09-[address] [facility] DIFFERENTIAL 16:56:00 [facility] COMPREHENSIVE METABOLIC 2021-09-[address] [facility] PANEL 16:56:00 [facility] CBC W/PLT COUNT & AUTO 2021-09-[address] [facility] DIFFERENTIAL 16:56:00 [facility] MAGNESIUM 2021-09-03 Ukani, Nilam [facility] 16:56:00 [facility] XR ABDOMEN/KUB 1 VIEW 2021-09-03 Ukani, Nilam [facility] PORTABLE 16:05:00 [facility] XR CHEST 1 VIEW PORTABLE / 2021-09-03 Uk[facility], Nilam [facility] 16:02:00 [facility] XR ABDOMEN/KUB 1 VIEW 2021-09-03 Shama [facility]enthal [facility] PORTABLE 12:50:00 [facility] METABOLIC 2021-09-03 Nalam, Nilsa Gladys [facility] PANEL 05:02:00 [facility] PHOSPHORUS 2021-09-03 Ukani, Nilam [facility] 05:02:00 [facility] POCT-GLUCOSE METER 2021-09-[address] [facility] 22:13:00 [facility] POCT-GLUCOSE METER 2021-09-[address] [facility] 18:48:00 [facility] CREATININE, RANDOM URINE 2021-09-02 Bhairavarasu, [facility] 04:39:00 [facility] PROTEIN, RANDOM URINE 2021-09-02 Bhairavarasu, [facility] 04:39:00 [facility] POCT-GLUCOSE METER 2021-09-[address] [facility] 23:16:00 [facility] POCT-GLUCOSE METER 2021-09-01 Galo Shama Altamiranol [facility] 18:08:00 [facility] HIGH SENSITIVITY TROPONIN I 2021-09-[address] [facility] 16:25:00 [facility] XR CHEST 1 VIEW PORTABLE / 2021-09-01 Nilam Mauro [facility] 16:21:00 [facility] ECG 12-LEAD 2021-09-01 Unknown, Hl7 Doctor [facility] 15:41:33 [facility] ECG 12-LEAD 2021-09-01 Unknown, Hl7 Doctor [facility] 15:41:33 [facility] CBC W/PLT COUNT & AUTO 2021-09-01 Ponceairavarasu, [facility] DIFFERENTIAL 06:00:00 [facility] (CELLAVISION MANUAL DIFF) 2021-09-01 Bhavarasu, [facility] 06:00:00 [facility] COMPREHENSIVE METABOLIC 2021-09-[address] [facility] PANEL 06:00:00 [facility] PROTHROMBIN TIME/INR 2021-09-[address] [facility] 06:00:00 [facility] PT/APTT 2021-09-[address] [facility] 06:00:00 [facility] CBC W/PLT COUNT & AUTO 2021-09-01 Ponceairavarasu, [facility] DIFFERENTIAL 06:00:00 [facility] T SPOT TB 2021-09-[address] [facility] 06:00:00 [facility] IMMUNOGLOBULIN A (IGA) 2021-09-01 [facility] [...] 2021-08-[address] [facility] 06:22:00 [facility] MISCELLANEOUS LAB ORDER 2021-08-[address] [facility] 05:16:00 [facility] ANTI-DARRIN AB (METAL CONTROL COORDINATOR, LACY) 2021-08-31 adrianneu, [facility] 05:14:00 [facility] CYCLIC CITRULLINATED PEPTIDE 2021-08-31 adrianneu, [facility] AB, IGG 05:14:00 [facility] CBC (HEMOGRAM ONLY) 2021-08-31 Nalam, Nilsa Gladys [facility] 05:14:00 [facility] PROTHROMBIN TIME/INR 2021-08-31 Ukani, Nilam [facility] 05:14:00 [facility] PT/APTT 2021-08-31 Ukani, Nilam [facility] 05:14:00 [facility] RETICULOCYTE COUNT 2021-08-[address] [facility] 05:14:00 [facility] MISCELLANEOUS LAB ORDER 2021-08-[address] [facility] 05:13:00 [facility] COMPLEMENT COMPONENT C4 2021-08-[address] [facility] 05:13:00 [facility] FERRITIN 2021-08-31 Avu, [facility] 05:13:00 [facility] RHEUMATOID FACTOR AB, REFLEX 2021-08-31 adrianneu, [facility] TO TITER 05:13:00 [facility] MAGNESIUM 2021-08-[address] [facility] 05:13:00 [facility] COMPREHENSIVE METABOLIC 2021-08-31 Jasielam, Nilsa Gladys [facility] PANEL 05:13:00 [facility] HC LAB HIV-1 AG W/HIV-1&2 AB 2021-08-[address] [facility] 05:13:00 [facility] RPR 2021-08-[address] [facility] 05:13:00 [facility] RHEUMATOID FACTOR TITER 2021-08-31 airavarasu, [facility] 05:13:00 [facility] POCT-GLUCOSE METER 2021-08-[address] [facility] 21:08:00 [facility] POCT-GLUCOSE METER 2021-08-[address] [facility] 17:25:00 [facility] POCT-GLUCOSE METER 2021-08-[address] [facility] 12:38:00 [facility] POCT-GLUCOSE METER 2021-08-[address] [facility] 08:11:00 [facility] MAGNESIUM 2021-08-[address] [facility] 03:22:00 [facility] COMPREHENSIVE METABOLIC 2021-08-30 Nalam, Nilsa Gladys [facility] PANEL 03:22:00 [facility] CBC (HEMOGRAM ONLY) 2021-08-30 Jasielam, Nilsa Gladys [facility] 03:22:00 [facility] PROTHROMBIN TIME/INR 2021-08-30 Ukani, Nilam [facility] 03:22:00 [facility] PT/APTT 2021-08-30 Ukani, Nilam [facility] 03:22:00 [facility] C-REACTIVE PROTEIN 2021-08-30 Ukani, Nilam [facility] 03:22:00 [facility] DOUBLE-STRANDED DNA (DSDNA) 2021-08-30 Ukani, Nilam [facility] ANTIBODY 03:22:00 [facility] LIPASE 2021-08-[address] [facility] 03:22:00 [facility] ANTI-DNA TITER 2021-08-30 Ukani, Nilam [facility] 03:22:00 [facility] POCT-GLUCOSE METER 2021-08-29 Nalam, Nilsa Gladys [facility] 21:37:00 [facility] POCT-GLUCOSE METER 2021-08-29 Nalam, Nilsa Gladys [facility] 17:43:00 [facility] FIBRINOGEN 2021-08-29 [place], Peace [facility] 13:31:00 [facility] PHOSPHATIDYLSERINE ABS (IGG, 2021-08-29 [place], Peace [facility] IGM) 13:31:00 [facility] HEREDITARY HEMOCHROMATOSIS 2021-08-[address] [facility] 13:31:00 [facility] POCT-GLUCOSE METER 2021-08-29 Gabriel, Nilsa Gladys [facility] 11:43:00 [facility] POCT-GLUCOSE METER 2021-08-29 Nalam, Nilsa Gladys [facility] 08:43:00 [facility] SARS-COV2/RT-PCR (HS & REF 2021-08-[address] [facility]) 04:44:00 [facility] MAGNESIUM 2021-08-29 Vernell Gonzalez [facility] 04:41:00 [facility] COMPREHENSIVE METABOLIC 2021-08-29 Gabriel, Nilsa Graham [facility] PANEL 04:41:00 [facility] PROTHROMBIN TIME/INR 2021-08-[address] [facility] 04:41:00 [facility] LIPASE 2021-08-[address] [facility] 04:41:00 [facility] PHOSPHORUS 2021-08-29 Keyona Zuniga [facility] 04:41:00 [facility] (MANUAL DIFFERENTIAL) 2021-08-[address] [facility] 04:40:00 [facility] CBC (HEMOGRAM ONLY) 2021-08-[address] [facility] 04:40:00 [facility] PERIPHERAL BLOOD SMEAR - 2021-08-29 Efrain Peace [facility] PATHOLOGIST REVIEW 04:40:00 [facility] PO[facility]SE MET[facility] 2021-08-29 Jasielkev, Nilsa Gladys [facility] 04:30:00 [facility] ACTIN (SMOOTH MUSCLE) 2021-08-[address] [facility] ANTIBODY, IGG 14:55:00 [facility] ANTI-MITOCHONDRIAL AB, 2021-08-[address] Car[address] [facility] REFLEX TO TITER 14:55:00 [facility] ANTI-NUCLEAR ANTIBODY (STU) 2021-08-[address]io [facility] 14:55:00 [facility] CERULOPLASMIN 2021-08-[address]io [facility] 14:55:00 [facility] FERRITIN 2021-08-28 Caro, Raja Lio [facility] 14:55:00 [facility] HEPATITIS A ANTIBODY, IGG 2021-08-28 Gordo, Rik Vaca [facility] 14:55:00 [facility] HEPATITIS B CORE ANTIBODY, 2021-08-28 Gordo, Rik Méndezir [facility] TOTAL 14:55:00 [facility] HEPATITIS B SURFACE ANTIBODY 2021-08-28 Gordo, Rik Vaca [facility] 14:55:00 [facility] HEPATITIS B SURFACE ANTIGEN 2021-08-28 Gordo, Rik Vaca [facility] 14:55:00 [facility] HEPATITIS C ANTIBODY 2021-08-28 Gordo, Rik Vaca [facility] 14:55:00 [facility] IMMUNOGLOBULIN G (IGG) 2021-08-[address] [facility] 14:55:00 [facility] IRON, TIBC, % SAT. (WITHOUT 2021-08-[address] [facility] FERRITIN) 14:55:00 [facility] STU TITER AND PATTERN 2021-08-28 Gordo, Rik Vaca [facility] 14:55:00 [facility] MITOCHONDRIAL AB SCREEN 2021-08-28 Gordo, Piyusha Lio [facility] 14:55:00 [facility] MITOCHONDRIAL AB TITER 2021-08-28 Gordo, Rik Vaca [facility] 14:55:00 [facility] MISCELLANEOUS LAB ORDER 2021-08-28 Caro, Rik Méndezir [facility] 14:10:00 [facility] FILUC-2-OGKHIEWRZSR\\, SERUM 2021-08-28 Caro, Rik Méndezir [facility] 14:10:00 [facility] RAPID DRUG SCREEN, URINE 2021-08-28 Caro, Piyusha Lio [facility] 13:54:00 [facility] POCT-GLUCOSE METER 2021-08-28 Gabriel, Nilsa Gladys [facility] 12:20:00 [facility] POCT-GLUCOSE METER 2021-08-28 Nalam, Nilsa Gladys [facility] 08:07:00 [facility] MAGNESIUM 2021-08-[address] [facility] 04:38:00 [facility] COMPREHENSIVE METABOLIC 2021-08-28 Nalam, Nilsa Gladys [facility] PANEL 04:38:00 [facility] CBC (HEMOGRAM ONLY) 2021-08-[address] [facility] [facility] 04:38:00 [facility] POCT-GLUCOSE METER 2021-08-[address] [facility] 22:18:00 [facility] MR ABDOMEN WITHOUT IV 2021-08-[address] [facility] CONTRAST MRCP 17:55:00 [facility] MR ABDOMEN WITH & WITHOUT IV 2021-08-27 Jasielkev, Nilsa Graham [facility] CONTRAST 17:55:00 [facility] MAGNESIUM 2021-08-[address] [facility] 05:38:00 [facility] COMPREHENSIVE METABOLIC 2021-08-[address] [facility] PANEL 05:38:00 [facility] CBC (HEMOGRAM ONLY) 2021-08-[address] [facility] [facility] 05:38:00 [facility] URINALYSIS W/ REFLEX URINE 2021-08-[address] [facility] CULTURE 04:24:00 [facility] BLOOD CULTURE 2021-08-[address] [facility] 04:15:00 [facility] BLOOD CULTURE 2021-08-[address] [facility] 01:51:00 [facility] CBC W/PLT COUNT & AUTO 2021-08-[address] [facility] DIFFERENTIAL 01:50:00 [facility] (CELLAVISION MANUAL DIFF) 2021-08-[address] [facility] 01:50:00 [facility] CBC W/PLT COUNT & AUTO 2021-08-[address] [facility] DIFFERENTIAL 01:50:00 [facility] COMPREHENSIVE METABOLIC 2021-08-[address] [facility] PANEL 01:50:00 [facility] MAGNESIUM 2021-08-[address] [facility] 01:50:00 [facility] TRIGLYCERIDES 2021-08-[address] [facility] 01:50:00 [facility] LIPASE 2021-08-[address] [facility] 01:50:00 [facility] PROTHROMBIN TIME/INR 2021-08-26 Vernell Gonzalez [facility] 01:49:00 [facility] IGG SUBCLASS-4 ONLY 2021-08-26 Vernell Gonzalez [facility] 01:49:00 [facility] Plan of Care Planned Activity Planned Date [...] Luke s Test 00:00:00 (procedure) [code = [facility] 80872329] Future Scheduled 2024-12-[address] [facility] Test 00:00:00 (procedure) [code = [facility] 06874880] Future Scheduled 2024-12-[address] [facility] Test 00:00:00 (procedure) [code = [facility] 44002732] Future Scheduled 2024-12-[address] [facility] Test 00:00:00 (procedure) [code = [facility] [id number]] Future Scheduled 2024-12-[address] [facility] Test 00:00:00 (procedure) [code = [facility] 43668659] Future Scheduled 2024-12-[address] [facility] Test 00:00:00 (procedure) [code = [facility] 63940244] Future Scheduled 2024-12-[address] [facility] Test 00:00:00 (procedure) [code = [facility] 15057976] Future Scheduled 2023-01-[address] [facility] Test 00:00:00 (Season Ended) [code = [facility] INFLUENZA VACCINE (Season Ended)] Future Scheduled 2022-01-18 INFLUENZA VACCINE (#1) C [...] (2 - PPSV23 or PCV20)] Future Scheduled 2021-01-[address] [facility] Test 00:00:00 0-64 YRS (2 - PPSV23 Medical Center if available, else PCV20) [code = PNEUMOCOCCAL VACCINE 0-64 YRS (2 - PPSV23 if available, else PCV20)] Future Scheduled 2020-09-19 COVID-19 VACCINE (2 - [facility] 00:00:00 Jaja risk series) [facility] [code = COVID-19 VACCINE (2 - [...] Type Clinicians Facility Department ID 2022-06-14 Outpatient READMIAUSTYN SAUCEDA [id number] ENCBAY 12:18:07 N WILLARD 2022-06-03 Outpatient 3 VJ CROUCH CVA [id number] [facility] 14:59:09 [facility] [id number] [facility] [place] 2022-05-31 Outpatient 3 [id number] [facility] REF [id number] [facility] 12:17:08 [id number] [facility] [place] 2022-02-21 Outpatient 3 [id number] [facility] REF [id number] [facility] 15:15:18 [facility] [place] 2022-02-09 Outpatient 3 VJ CROUCH CV [id number] [facility] 10:16:03 [facility] [place] 2022-02-07 Outpatient 3 VJ CROUCH CV [id number] [facility] 12:02:45 [facility] [place] 2022-02-06 Outpatient 3 [id number] [facility] REF [id number] [facility] 12:16:49 [facility] [place] 2021-12-07 [facility] [id number] 00:00:00 Encounter [facility] 2021-12-07 [facility] [id number] 00:00:00 Encounter [facility] 2021-10-09 Outpatient 3 VJ CROUCH OT [id number] [facility] 10:19:53 [facility] [place] 2021-10-08 Outpatient 3 VJ CROUCH [facility] [id number] [facility] 16:06:37 [facility] [place] 2021-10-05 Outpatient 3 [id number] [facility] REF [id number] [facility] 08:52:05 [facility] [place] 2021-10-04 Outpatient 3 [id number] [facility] REF [id number] [facility] 08:39:39 [facility] [place] 2021-09-25 Outpatient 3 [id number] [facility] [id number] [facility] 10:41:49 [facility] [place] 2021-09-04 Outpatient 3 [id number] EN[facility] REF [id number] [facility] 15:32:58 [facility] [place] 2021-09-04 Outpatient 3 [id number] ENC REF [id number] [facility] 08:59:04 0418 [facility] [place] 2021-09-02 Outpatient 3 [id number] ENCPL REF [facility] 11:35:01 0416 [facility] [place] 2021-09-01 Outpatient 3 [id number] ENCPL REF [facility] 14:10:28 0415 [facility] [place] 2022-06-05 2022-06-22 Inpatient 3 VJ CROUCH [id number] [facility] 16:16:00 12:13:00 WILLARD [id number] [facility] [place] 2022-05-26 2022-06-05 Inpatient ER JAYRIA AKINS G[facility] [id number] SLETye 02:16:00 15:28:00 KAYLA 2022-05-26 2022-06-05 [place] [id number] [facility] 02:16:00 15:28:00 Encounter Vernell Gonzalez [facility] 2022-05-26 2022-06-05 [facility] 1 [id number] [facility] 02:16:00 15:28:00 Encounter Vernell Gonzalez [facility] 2022-05-29 2022-05-29 Telephone Heather [facility] [id number] Univers 00:00:00 00:00:00 Mijares SPECIALTY [id number] ity of [facility] [id number] [facility] AT [id number] [place] [address] 2022-03-16 2022-03-18 Outpatient U JUAN JOSÉ GARCIA [facility] MED [id number] Univers 01:27:00 18:08:00 ity of [facility] 2022-03-16 2022-03-18 [facility] Estrada Sinclair [id number] Univers 01:27:00 18:08:00 Encounter Juan José Garcia 350.1.13 .10 ity of [facility] [id number] [place] [id number] [facility] [address] 2022-03-16 2022-03-16 Orders Doctor MARY [id number] Univers 00:00:00 00:00:00 Only Unassigned, [place] [id number] ity of [facility] [id number] [facility] [id number] [facility] [address] 2022-03-14 2022-03-14 Emergency [facility] [id number] Univers 13:27:00 18:30:00 ANETA radu of [facility] 2022-03-14 2022-03-14 [facility] [id number] Univers 13:27:00 18:30:00 Aneta WHATLEY [id number] i ty [facility] [id number] [facility] [id number] [facility] [address] 2022-02-18 2022-03-12 Inpatient ER ABIODUN, [facility] Emergency [id number] SLE 23:00:00 16:50:00 SILVIO 2022-02-18 2022-03-12 [facility] [id number] 23:00:00 16:50:00 Encounter Silvio Mccray [address] [place] [address] 2022-02-18 2022-03-12 [facility] ER [facility] [id number] 23:00:00 16:50:00 Encounter Silvio Mccray [address] [place] [address] 2022-03-08 2022-03-08 Orders [facility] [id number] 00:00:00 00:00:00 Only [facility] 2022-03-08 2022-03-08 Orders Masood [facility] [id number] 00:00:00 00:00:00 Only [facility] 2022-02-11 2022-02-21 Inpatient 3 VJ CROUCH [id number] [facility] 21:26:00 11:05:00 WILLARD [id number] [facility] itation [place] 2022-02-20 2022-02-20 Outpatient NICHO Crouch [facility] [id number] [facility] 10:18:00 10:18:00 Willard 69 [facility] 2022-01-25 2022-02-11 Inpatient ER [facility] Surgery [id number] [facility] 04:38:00 21:00:00 IRINA 2022-01-25 2022-02-11 [facility] Gricelda Arteagassa [facility] [id number] 04:38:00 21:00:00 Encounter Nilsa Rios, [facility], [facility] 2022-01-25 2022-02-11 Hospital ER Gricelda Arteagassa [facility] [id number] 04:38:00 21:00:00 Encounter Nilsa Rios Ali, [facility] [place], [facility] 2022-02-07 2022-02-07 Anesthesia Tamia Jha [facility] [id number] 12:47:00 16:04:00 [facility] 2022-02-07 2022-02-07 Anesthesia Tamia Jha [facility] [id number] 12:47:00 16:04:00 Event Marck Sterling [facility] 2022-02-07 2022-02-07 Surgery Lissette, [facility] [id number] 11:56:00 15:22:00 [facility] 2022-02-07 2022-02-07 Surgery Lissette [facility] [id number] 11:56:00 15:22:00 [facility] 2022-02-02 2022-02-02 Surgery Willard, [facility] [id number] 12:00:00 13:00:00 [facility] 2022-02-02 2022-02-02 Surgery Willard, [facility] [id number] 12:00:00 13:00:00 [facility] 2022-02-02 2022-02-02 Anesthesia Jason, [facility] [id number] 11:37:00 12:37:00 Event [facility] 2022-02-02 2022-02-02 Anesthesia Jason, [facility] [id number] 11:37:00 12:37:00 Event [facility] 2022-01-25 2022-01-25 Outpatient BCM BCM [id number] [facility] 04:38:00 23:59:00 [facility] 2022-01-25 2022-01-25 Outpatient BCM BCM [id number] [facility] 04:38:00 04:38:00 [facility] 2022-01-25 2022-01-25 Travel [facility] [id number] [facility] 00:00:00 00:00:00 [facility] 2022-01-25 2022-01-25 Travel [facility] [id number] [facility] 00:00:00 00:00:00 [facility] 2021-12-07 2021-12-25 Inpatient ER RIA DURHAM Emergency [id number] SLE 12:15:00 21:00:00 BETHANY 2021-12-07 2021-12-25 [facility] [id number] 12:15:00 21:00:00 Encounter Bethany Durham Sahar Medi cal Athreya, [facility] 2021-12-07 2021-12-25 Hospital ER OzunaKhushi gibson [facility] [id number] 12:15:00 21:00:00 Encounter Bethany Durham Sahar [facility] 2021-12-11 2021-12-11 Outside Marva, [facility] [id number] 00:00:00 00:00:00 Orders Bethany Roberts [facility] 2021-12-11 2021-12-11 Outside [facility] [id number] 00:00:00 00:00:00 Orders Bethany Roberts [facility] 2021-12-08 2021-12-08 Travel [facility] [id number] [facility] 00:00:00 00:00:00 [facility] 2021-12-08 2021-12-08 Travel [facility] [id number] [facility] 00:00:00 00:00:00 [facility] 2021-12-07 2021-12-07 Travel [facility] [id number] [facility] 00:00:00 00:00:00 [facility] 2021-12-07 2021-12-07 Travel [facility] [id number] [facility] 00:00:00 00:00:00 [facility] 2021-10-10 2021-10-27 Inpatient 3 [facility]J [facility]OCUH [facility] [id number] [facility] 15:00:00 13:33:00 WILLARD [id number] [facility] [place] 2021-10-23 2021-10-23 Outpatient [facility] [id number] [facility] 13:20:00 13:20:00 Willard 60 [facility] 2021-10-20 2021-10-20 Outside [facility] [id number] 00:00:00 00:00:00 Orders [facility] 2021-10-20 2021-10-20 Outside [facility] [id number] 00:00:00 00:00:00 Orders [facility] 2021-10-19 2021-10-19 Outpatient ISMAEL GOYAL [facility] [id number] [facility] 13:28:45 14:35:41 AMADO Vidal Medicin alejandro 2021-10-19 2021-10-19 Outpatient RIA HILARIO [facility] [id number] SLE 00:00:00 00:00:00 [facility] 2021-09-27 2021-10-10 Inpatient ER MAGDA [facility] Emergency [id number] SLE 17:55:00 14:32:00 [facility] 2021-09-27 2021-10-10 [facility] [id number] 17:55:00 14:32:00 [facility] 2021-09-27 2021-10-10 [facility] [id number] 17:55:00 14:32:00 [facility] 2021-10-10 2021-10-10 Outpatient RIA HILARIO [facility] [id number] SLE 00:00:00 00:00:00 [facility] 2021-10-02 2021-10-02 Anesthesia Aravind Harley [facility] [id number] 17:02:00 19:27:00 Event Vicki Ary [facility] 2021-10-02 2021-10-02 Anesthesia Aravind Harley [facility] [id number] 17:02:00 19:27:00 Event Ary Cohen [facility] 2021-10-02 2021-10-02 Surgery Lissette [facility] [id number] 16:30:00 19:12:00 [facility] 2021-10-02 2021-10-02 Surgery Lissette [facility] [id number] 16:30:00 19:12:00 [facility] 2021-09-28 2021-09-28 Outpatient BCM BCM [id number] [facility] 00:00:00 23:59:00 [facility] 2021-09-22 2021-09-27 Inpatient 3 VJ CROUCH ART [id number] [facility] 19:40:00 16:58:00 WILLARD [id number] [facility] [place] 2021-09-27 2021-09-27 Outpatient EL KEAGAN CrouchKW [facility] [id number] [facility] 13:42:00 13:42:00 Willard 14 [facility] 2021-08-25 2021-09-22 Inpatient ER ELI, [facility] [id number] [facility] 23:24:00 18:50:00 IRINA 2021-08-25 2021-09-22 [facility] [id number] [facility] 23:24:00 18:50:00 Encounter [facility], Rebecca Benitez, Irina 2021-08-25 2021-09-22 [facility] [id number] [facility] 23:24:00 18:50:00 Encounter Mervin [facility]ell [facility], Rebecca Benitez, Irina 2021-09-07 2021-09-07 Outpatient CHAPIS OSPINA [id number] [facility] 00:00:00 00:00:00 SAMIM Seybol d 2021-09-04 2021-09-04 Outpatient BCM BCM [id number] [facility] 00:00:00 23:59:00 [facility] 2021-09-01 2021-09-01 [facility] [id number] 00:00:00 00:00:00 Only [facility] 2021-09-01 2021-09-01 Orders [facility] [id number] 00:00:00 00:00:00 Only [facility] 2021-08-26 2021-08-26 Travel [facility] [id number] [facility] 00:00:00 00:00:00 [facility] 2021-08-26 2021-08-26 Travel [facility] [id number] [facility] 00:00:00 00:00:00 [facility] Results Test Description Test Time Test Comments Results Result Comments Source BLOOD CULTURE 2022-06-27 13:51:58 Test Item Value Reference Range Interpretation Comme nts CULTURE (BEAKER) (test code = 1095) No growth in 5 days Specimen received, ordered, and processed during a system downtime event in February 2022MR, ABDOMEN, [id number] 08:01:00Unlisted Reason for Exam - Click Yes and Enter Reason Below->Yes Unlisted Reason for Exam->evaluate pancreas anataomy and look for ductal stone [facility] : 2000 Sex: MFINALREPORT TECHNIQUE: MRI of the abdomen and MRCP [...] unremarkable. No biliary ductal dilatation or filling defect.SPLEEN: 13 cm splenomegaly.PANCREAS: No focal masses or [...] recommended. PERITONEUM/RETROPERITONEUM: Trace perisplenic ascites. A fluid collectionalong the falciform ligament measures 5.8 x 5 x 3.3 cm. LYMPH NODES: No lymphadenopathy.VESSELS: Theright hepatic artery is replaced from superior mesenteric artery. The main portal vein is patent andmeasures 1.2 cm in diameter. GI TRACT: No distention or wall thickening. BONES AND SOFT TISSUES: A few scattered areas of restricted diffusion in the posterior abdominal wall musculature measure up to 0.7 cm and are unchanged. IMPRESSION: 1.No cholelithiasis or choledocholithiasis 2.There is some mildinflammatory change adjacent to the pancreatic tail which [...] x 5 x 3.3 cm. 4.The findings in the liver are concerning for iron deposition. 5.Mild splenomegaly 6.The unchanged areas of restricted diffusion in the posterior abdominal wall musculature are unchanged and indeterminate. These couldbe small peripheral nerve sheath tumors. Attention on follow-up imaging is recommended. Signed: Yash Lux Verified Date/Time: 06/07/2022 08:01:15 Electronically signed by: Adrienne FLOYD 06/07/2022 08:01 AMPOC-Glucose [id number] 12:08:43 Test Item Value Reference Range Interpretation Comments POC-Glucose Meter (test 131 mg/dL 70-110 H : TE STED AT [facility] code = 1538) 20 [facility], [facility] 30: Printed Circuit Boards Inspector/Techni dakota ID = [id number] for SONI, ERNST Lab Interpretation (test Abnormal code = 78290-6) [facility] [id number] 12:08:43 Test Item Value Reference Range Interpretation Comments POC-Glucose Meter (test 131 mg/dL 70-110 H : TE STED AT [facility] code = 1538) [address] [place] [address], [facility] 30: Printed Circuit Boards Inspector/Techni dakota ID = [id number] for SONI, ERNST Lab Interpretation (test Abnormal code = 09255-6) [facility] [id number] 12:08:43 Test Item Value Reference Range Interpretation Comments POC-Glucose Meter (test 131 mg/dL 70-110 H : TE STED AT [facility] code = 1538) [address] [place] [address], [facility] 30: Printed Circuit Boards Inspector/Techni dakota ID = [id number] for SONI, ERNST Lab Interpretation (test Abnormal code = 69771-8) [facility] [id number] 12:08:43 Test Item Value Reference Range Interpretation Comments POC-GLUCOSE METER 131 mg/dL 70-110 H : TESTED A T [facility] 6720 (BEAKER) (test code = [facility], 1538) [address]: Printed Circuit Boards Inspector/Techni dakota ID = [id number] for [place] LLIS, ERNST POCT-GLUCOSE [id number] 09:38:56 Test Item Value Reference Range Interpretation Comments POC-GLUCOSE METER 80 mg/dL 70-110 : TESTED A T [facility] 6720 (BEAKER) (test code = [facility], 1538) [address]: Printed Circuit Boards Inspector/Techni dakota ID = [id number] for WILL IS, ERNST BASIC METABOLIC [id number] 05:35:10 Test Item Value Reference Range Interpretation [...] not appl icable for dialysis patien ts Printed Circuit Boards Inspector ID - MARIBEL [id number] 05:35:10 Test Item Value Reference Range Interpretation Comments MAGNESIUM (BEAKER) (test code = 1.8 mg/dL 1.6-2.6 627) [employer] Circuit Boards Inspector ID - MARIBEL LCBC W/PLT COUNT & AUTO [id number] 04:43:32 Test Item Value Reference Range Interpretation [...] PERCENT (BEAKER) (test code = 2801) POCT-GLUCOSE [id number] 21:33:25 Test Item Value Reference Range Interpretation Comments POC-GLUCOSE METER 148 mg/dL 70-110 H : TESTED A T [facility] 6720 (BEAKER) (test code = [place], 1538) [address]: Printed Circuit Boards Inspector/Techni dakota ID = [id number] for VIOLETA RODGERS POCT-GLUCOSE [id number] 17:15:25 Test Item Value Reference Range Interpretation Comments POC-GLUCOSE METER 159 mg/dL 70-110 H : TESTED A T [facility] 6720 (BEAKER) (test code = [facility], 1538) [address]: Printed Circuit Boards Inspector/Techni dakota ID = [id number] for [place] LLIS, ERNST POCT-GLUCOSE [id number] 11:58:27 Test Item Value Reference Range Interpretation Comments POC-GLUCOSE METER 117 mg/dL 70-110 H : TESTED A T [facility] 6720 (BEAKER) (test code = [facility], 1538) [address]: Printed Circuit Boards Inspector/Techni dakota ID = [id number] for [place] LLIS, ERNST POCT-GLUCOSE [id number] 08:28:16 Test Item Value Reference Range Interpretation Comments POC-GLUCOSE METER 75 mg/dL 70-110 : TESTED A T [facility] 6720 (BEAKER) (test code = [facility], 1538) 40[address]: Printed Circuit Boards Inspector/Techni dakota ID = [id number] for WILL IS, ERNST [id number] 06:12:35 Test Item Value Reference Range Interpretation Comments MAGNESIUM (BEAKER) (test code = 1.7 mg/dL 1.6-2.6 627) [employer] Circuit Boards Inspector ID - PIAYA LBASIC METABOLIC [id number] 06:12:34 Test Item Value Reference Range Interpretation [...] not appl icable for dialysis patien ts Printed Circuit Boards Inspector ID - PIAYA LCBC W/PLT COUNT & AUTO [id number] 05:50:40 Test Item Value Reference Range Interpretation [...] PERCENT (BEAKER) (test code = 2801) POCT-GLUCOSE [id number] 22:42:07 Test Item Value Reference Range Interpretation Comments POC-GLUCOSE METER 176 mg/dL 70-110 H : TESTED A T [facility] 6720 (BEAKER) (test code = [facility], 153) [address]: Printed Circuit Boards Inspector/Techni dakota ID = [id number] for DARCIE DOUGLAS POCT-GLUCOSE [id number] 16:51:57 Test Item Value Reference Range Interpretation Comments POC-GLUCOSE METER 216 mg/dL 70-110 H : TESTED A T [facility] 6720 (BEAKER) (test code [facility], = 1538) [address]: Printed Circuit Boards Inspector/Techni dakota ID = [id number] for WILS ON, SHASTANIE POCT-GLUCOSE [id number] 11:46:18 Test Item Value Reference Range Interpretation Comments POC-GLUCOSE METER 170 mg/dL 70-110 H : TESTED A T [facility] 6720 (BEAKER) (test code [facility], = 1538) 44078: Printed Circuit Boards Inspector/Techni dakota ID = [id number] for WILS ON, SHASTANIE POCT-GLUCOSE [id number] 08:09:08 Test Item Value Reference Range Interpretation Comments POC-GLUCOSE METER 85 mg/dL 70-110 : TESTED A T [facility] 6720 (BEAKER) (test code = [facility], 1538) 779[address]: Printed Circuit Boards Inspector/Techni dakota ID = [id number] for WILS ON, SHASTANIE BASIC METABOLIC [id number] 04:52:41 Test Item Value Reference Range Interpretation [...] not appl icable for dialysis patien ts Printed Circuit Boards Inspector ID - MARIBEL [id number] 04:52:41 Test Item Value Reference Range Interpretation Comments MAGNESIUM (BEAKER) (test code = 1.7 mg/dL 1.6-2.6 627) Printed Circuit Boards Inspector ID Cherelle LÓPEZ LCBC W/PLT COUNT & AUTO [id number] 03:58:25 Test Item Value Reference Range Interpretation [...] PERCENT (BEAKER) (test code = 2801) POCT-GLUCOSE [id number] 21:30:43 Test Item Value Reference Range Interpretation Comments POC-GLUCOSE METER 170 mg/dL 70-110 H : Notified RN/MD: (GENEVA) (test code = TESTED AT [facility] 6720 1538) [facility], [address]: Printed Circuit Boards Inspector/Techni dakota ID = [id number] for Scooter wheat Tong POCT-GLUCOSE [id number] 17:00:13 Test Item Value Reference Range Interpretation Comments POC-GLUCOSE METER 218 mg/dL 70-110 H : TESTED A T [facility] 6720 (BEAKER) (test code = [place] [facility], 1538) 98[address]: Printed Circuit Boards Inspector/Techni dakota ID = [id number] for Annabel-LANDAVERD E, MARLENY POCT-GLUCOSE [id number] 11:44:53 Test Item Value Reference Range Interpretation Comments POC-GLUCOSE METER 168 mg/dL 70-110 H : TESTED A T [facility] 6720 (BEAKER) (test code = [place] [facility], 1538) 39[address]: Printed Circuit Boards Inspector/Techni dakota ID = [id number] for Annabel-LANDAVERD E, MARLENY POCT-GLUCOSE [id number] 07:22:09 Test Item Value Reference Range Interpretation Comments POC-GLUCOSE METER 109 mg/dL 70-110 : TESTED A T [facility] 6720 (BEAKER) (test code = [place] [facility], 1538) 8[address]: Printed Circuit Boards Inspector/Techni dakota ID = [id number] for Annaebl-LANDAVERD E, MARLENY SARS-CoV2/RT-PCR (Asymptomatic ONLY)2022-06-02 06:51:46 Test Item Value Reference Interpretation Comments Range SARS-COV2/RT-PCR Negative Negative The SARS-Co V-2 (test code = target nucleic 70614-1) acids are not detected in thi s [...] om SARS-CoV-2 in a nasopharyngeal swab specimen colle hernandez from individual s suspected of COVID-19 [...] revoked sooner. Fact Sheet for Healthcare Providers: https://www.[employer]/Documents/Xp ert%20Xpress%20SAR S%20CoV-2/Fact%20S heets/302-3802%20S ARS-COV-2%20HEALTH CARE%20PROVIDERS%2 0FACT%20SHEET.pdf Fact Sheet for Healthcare Patients: https://www.[employer]/Documents/Xp ert%20Xpress%20SAR S%20CoV-2/Fact%20S heets/302-3801%20S ARS-COV-2%20PATIEN T%20FACT%20SHEET.p df Lab Interpretation Normal (test code = 10053-9) [facility]2022-06-02 06:51:46 Test Item Value Reference Interpretation Comments Range SARS-COV2/RT-PCR Negative Negative The SARS-Co V-2 (test code = target nucleic 13618-9) acids are not detected in thi s [...] revoked sooner. Fact Sheet for Healthcare Providers: https://www.[employer]/Documents/Xp ert%20Xpress%20SAR S%20CoV-2/Fact%20S heets/302-3802%20S ARS-COV-2%20HEALTH CARE%20PROVIDERS%2 0FACT%20SHEET.pdf Fact Sheet for Healthcare Patients: https://www.[employer]/Documents/Xp ert%20Xpress%20SAR S%20CoV-2/Fact%20S heets/302-3801%20S ARS-COV-2%20PATIEN T%20FACT%20SHEET.p df Lab Interpretation Normal (test code = 20852-7) [facility]omatic [facility]2022-06-02 06:51:46 Test Item Value Reference Interpretation Comments Range SARS-COV2/RT-PCR Negative Negative The SARS-Co V-2 (test code = target nucleic 02470-1) acids are not detected in thi s [...] om SARS-CoV-2 in a nasopharyngeal swab specimen colle hernandez from individual s suspected of COVID-19 [...] revoked sooner. Fact Sheet for Healthcare Providers: https://www.[employer]/Documents/Xp ert%20Xpress%20SAR S%20CoV-2/Fact%20S heets/302-3802%20S ARS-COV-2%20HEALTH CARE%20PROVIDERS%2 0FACT%20SHEET.pdf Fact Sheet for Healthcare Patients: https://www.[employer]/Documents/Xp ert%20Xpress%20SAR S%20CoV-2/Fact%20S heets/302-3801%20S ARS-COV-2%20PATIEN T%20FACT%20SHEET.p df Lab Interpretation Normal (test code = 14520-7) [facility])2022-06-02 06:51:46 Test Item Value Reference Range Interpretation Comments SARS-COV2/RT-PCR Negative Negative The SARS-Co V-2 target (test code = nucleic acids a re not 2310971) detected in thi s specimen. Negative result [...] revoked sooner. Fact Sheet for Healthcare Providers: https://wwwImage[employer]/Documents/Xpert%20Xpress%20SARS%20CoV-2/Fact%20Sheets/302-3802%15VAMG-REQ-7%20 HEALTHCARE%20PROVIDERS%20FACT%20SHEET.pdf Fact Sheet for Healthcare Patients: https://www.[employer]/Documents/Xpert%20Xp ress%20SARS%20CoV-2/Fact%20Sheets/302-3801%96EOYH-HLE-6%20PATIENT%20FACT%20SHEET .pdfBASIC METABOLIC [id number] 02:48:57 Test Item Value Reference Range Interpretation [...] not appl icable for dialysis patien ts Printed Circuit Boards Inspector ID - [id number] 02:48:57 Test Item Value Reference Range Interpretation Comments MAGNESIUM (BEAKER) (test code = 1.8 mg/dL 1.6-2.6 627) Printed Circuit Boards Inspector ID - MARCOCBC W/PLT COUNT & AUTO [id number] 02:28:38 Test Item Value Reference Range Interpretation [...] PERCENT (BEAKER) (test code = 2801) POCT-GLUCOSE [id number] 02:24:01 Test Item Value Reference Range Interpretation Comments POC-GLUCOSE METER 129 mg/dL 70-110 H : TESTED A T [facility] 6720 (GENEVA) (test code = [place], 1538) [address]: Printed Circuit Boards Inspector/Techni dakota ID = [id number] for Ri maryann, Luis Felipe CT, [id number] 14:42:00Unlisted Reason for Exam - Click Yes and Enter Reason Below->YesUnlisted Reason for Exam->pancreatitis and increasing WBC countProtocol Please Specify:->Standard ProtocolWill this procedure require oral contrast?->No [facility] : 2000 [...] tail , probably from pancreatitis. No main pancreatic ductal dilation and normal pancreatic enhancement. No [...] changes of the left hip with bony re modeling. IMPRESSION: 1.A 5 x 1.9 cm locule of perihepatic fluid along the falciform ligament. 2.A small amount of free fluid about the pancreatic tail and spleen. Probably related to the patient's pancreatitis. 3.Mild splenomegaly. Signed: Felicity Novak Verified Date/Time: 06/01/2022 14:42:56 El ectronically signed by: FELICITY NOVAK MD on 06/01/2022 02:42 PMPOCT-GLUCOSE [id number] 12:02:13 Test Item Value Reference Range Interpretation Comments POC-GLUCOSE METER 159 mg/dL 70-110 H : TESTED A T [facility] 6720 (BEAKER) (test code = [facility], 1538) [address]: Printed Circuit Boards Inspector/Techni dakota ID = [id number] for [place]-LANDAVERD E, MARLENY POCT-GLUCOSE [id number] 07:56:29 Test Item Value Reference Range Interpretation Comments POC-GLUCOSE METER 92 mg/dL 70-110 : TESTED A T [facility] 6720 (BEAKER) (test code = [facility], 1538) 21514: Printed Circuit Boards Inspector/Techni dakota ID = [id number] for [place]-LANDAVERD E, MARLENY [id number] 04:25:00 Test Item Value Reference Range Interpretation Comments MAGNESIUM (BEAKER) (test code = 1.7 mg/dL 1.6-2.6 627) Print[employer] Circuit Boards Inspector ID - MARIBEL LBASIC METABOLIC [id number] 04:24:59 Test Item Value Reference Range Interpretation [...] not appl icable for dialysis patien ts Print[employer] Circuit Boards Inspector ID - PIAYA LCBC W/PLT COUNT & AUTO [id number] 04:11:26 Test Item Value Reference Range Interpretation [...] PERCENT (BEAKER) (test code = 2801) POCT-GLUCOSE [id number] 22:38:25 Test Item Value Reference Range Interpretation Comments POC-GLUCOSE METER 197 mg/dL 70-110 H : TESTED A T [facility] 6720 (BEAKER) (test code = [place], 1538) [address]: Printed Circuit Boards Inspector/Techni dakota ID = [id number] for VIOLETA RODGERS POCT-GLUCOSE [id number] 16:23:37 Test Item Value Reference Range Interpretation Comments POC-GLUCOSE METER 244 mg/dL 70-110 H : TESTED A T [facility] 6720 (BEAKER) (test code = [place], 1538) 46[address]: Printed Circuit Boards Inspector/Techni dakota ID = [id number] for QUEEN HONEYCUTT POCT-GLUCOSE [id number] 11:36:41 Test Item Value Reference Range Interpretation Comments POC-GLUCOSE METER 177 mg/dL 70-110 H : TESTED A T [facility] 6720 (BEAKER) (test code = [facility], 1538) 48[address]: Printed Circuit Boards Inspector/Techni dakota ID = [id number] for FAY SPARKS BETHESDA POCT-GLUCOSE [id number] 07:17:56 Test Item Value Reference Range Interpretation Comments POC-GLUCOSE METER 83 mg/dL 70-110 : TESTED A T [facility] 6720 (BEAKER) (test code = [facility], 1538) 51004: Printed Circuit Boards Inspector/Techni dakota ID = [id number] for QUEEN JACOBSEN [id number] 06:02:08 Test Item Value Reference Range Interpretation Comments MAGNESIUM (BEAKER) (test code = 2.2 mg/dL 1.6-2.6 627) Printed Circuit Boards Inspector ID - MARCOBASIC METABOLIC [id number] 06:02:07 Test Item Value Reference Range Interpretation [...] not appl icable for dialysis patien ts Print[employer] Circuit Boards Inspector ID - MARCOCBC W/PLT COUNT & AUTO [id number] 05:47:08 Test Item Value Reference Range Interpretation [...] (BEAKER) (test code = 2801) Creatinine, random [id number] 02:28:59 Test Item Value Reference Range Interpretation Comments Creatinine, Ur 65.7 mg/dL (test code = 2161-8) IDALIA (test code = Reference Range: No IDALIA) NormalsOperator ID - ADMIN [facility] campusine, random [id number] 02:28:59 Test Item Value Reference Range Interpretation Comments Creatinine, Ur 65.7 mg/dL (test code = 2161-8) IDALIA (test code = Reference Range: No IDALIA) NormalsOperator ID - ADMIN [facility]Crewood[facility] campusine, random [id number] 02:28:59 Test Item Value Reference Range Interpretation Comments Creatinine, Ur 65.7 mg/dL (test code = 2161-8) IDALIA (test code = Reference Range: No IDALIA) NormalsOperator ID - ADMIN [facility]CREBETHESDA HOSPITALINE, RANDOM [id number] 02:28:59 Test Item Value Reference Range Interpretation Comments CREATININE URINE (BEAKER) (test 65.7 mg/dL code = 375) Reference Range: No NormalsOperator ID - ADMINPOCT-GLUCOSE [id number] 20:53:28 Test Item Value Reference Range Interpretation Comments POC-GLUCOSE METER 180 mg/dL 70-110 H : Notified RN/MD: (GENEVA) (test code = TESTED AT [place] [address] 7463) [facility], [address]: Printed Circuit Boards Inspector/Techni dakota ID = [id number] for Tong Cruz POCT-GLUCOSE [id number] 16:07:58 Test Item Value Reference Range Interpretation Comments POC-GLUCOSE METER 217 mg/dL 70-110 H : TESTED A T [facility] 6720 (LEOAKER) (test code = [place] [facility], 1538) [address]: Printed Circuit Boards Inspector/Techni dakota ID = [id number] for DELMAR COOPER POCT-GLUCOSE [id number] 11:07:00 Test Item Value Reference Range Interpretation Comments POC-GLUCOSE METER 151 mg/dL 70-110 H : TESTED A T [facility] 6720 (BEAKER) (test code = [facility], 1538) [address]: Printed Circuit Boards Inspector/Techni dakota ID = [id number] for QUEEN HONEYCUTT POCT-GLUCOSE [id number] 08:04:04 Test Item Value Reference Range Interpretation Comments POC-GLUCOSE METER 91 mg/dL 70-110 : TESTED A T [facility] 6720 (BEAKER) (test code = [facility], 153) [address]: Printed Circuit Boards Inspector/Techni dakota ID = [id number] for AKSHAT RANDALL BAEZ BASIC METABOLIC [id number] 05:08:46 Test Item Value Reference Range Interpretation [...] not appl icable for dialysis patien ts [employer]ed Circuit Boards Inspector ID - BISI [id number] 05:08:45 Test Item Value Reference Range Interpretation Comments MAGNESIUM (BEAKER) 1.7 mg/dL 1.6-2.6 Specimen slightly (test code = 627) hemolyzed [employer]ed Circuit Boards Inspector ID - BISI GCBC W/PLT COUNT & AUTO [id number] 04:29:02 Test Item Value Reference Range Interpretation [...] PERCENT (BEAKER) (test code = 2801) POCT-GLUCOSE [id number] 22:44:30 Test Item Value Reference Range Interpretation Comments POC-GLUCOSE METER 160 mg/dL 70-110 H : TESTED A T [facility] 6720 (BEAKER) (test code = [place] [facility], 1538) [address]: Printed Circuit Boards Inspector/Techni dakota ID = [id number] for Ab pepeAlannah Protein, random [id number] 18:00:01 Test Item Value Reference Range Interpretation Comments Protein, Urine (test code = 11 mg/dL 0-14 2888-6) IDALIA (test code = IDALIA) Printed Circuit Boards Inspector ID - BS Lab Interpretation (test Normal code = 23774-1) [facility] Center[facility], random [id number] 18:00:01 Test Item Value Reference Range Interpretation Comments Protein, Urine (test code = 11 mg/dL 0-14 2888-6) IDALIA (test code = IDALIA) [employer]ed Circuit Boards Inspector ID - BS Lab Interpretation (test Normal code = 75590-4) [facility] CenterProtein, random [id number] 18:00:01 Test Item Value Reference Range Interpretation Comments Protein, Urine (test code = 11 mg/dL 0-14 2888-6) IDALIA (test code = IDALIA) Printed Circuit Boards Inspector ID - BS Lab Interpretation (test Normal code = 19401-1) [facility] CenterPROTEIN, RANDOM [id number] 18:00:01 Test Item Value Reference Range Interpretation Comments PROTEIN, URINE (BEAKER) (test code = 11 mg/dL 0-14 1569) [employer]ed Circuit Boards Inspector ID - BSANA TITER AND [id number] 14:11:35 Test Item Value Reference Range Interpretation Comments STU TITER (BEAKER) (test code = :640 1541) STU PATTERN (BEAKER) (test code = Homogeneous 1781) ANTI-NUCLEAR ANTIBODY ([id number] 14:11:23 Test Item Value Reference Range Interpretation Comments ANTI-NUCLEAR ANTIBODY (STU) (BEAKER) Positive Negative A (test code = 418) Test performed by IFA method.ANTI-DNA [id number] 14:09:38 Test Item Value Reference Range Interpretation Comments ANTI-DNA TITER (BEAKER) (test code = :32 1553) DOUBLE-STRANDED DNA (DSDNA) [id number] 14:09:32 Test Item Value Reference Range Interpretation Comments ANTI-DNA DS (BEAKER) (test code = Positive Negative 1055) BASIC METABOLIC [id number] 05:45:43 Test Item Value Reference Range Interpretation [...] not appl icable for dialysis patien ts Printed Circuit Boards Inspector ID - MARIBEL [id number] 05:45:43 Test Item Value Reference Range Interpretation Comments MAGNESIUM (BEAKER) (test code = 1.5 mg/dL 1.6-2.6 L 627) Printed Circuit Boards Inspector ID - MARIBEL LCBC W/PLT COUNT & AUTO [id number] 05:11:51 Test Item Value Reference Range Interpretation [...] PERCENT (BEAKER) (test code = 2801) POCT-GLUCOSE [id number] 22:42:09 Test Item Value Reference Range Interpretation Comments POC-GLUCOSE METER 250 mg/dL 70-110 H : Notified RN/MD: (BEAKER) (test code = TESTED AT [facility] 1228 0019) [facility], [address]: Printed Circuit Boards Inspector/Techni dakota ID = [id number] for Tong Cruz HEMOGLOBIN [id number] 09:55:38 Test Item Value Reference Range Interpretation [...] 5.7- 6.4% indicates increased risk for diabetes (prediabetes)."Printed Circuit Boards Inspector ID - ADM [id number] 05:19:29 Test Item Value Reference Range Interpretation Comments MAGNESIUM (BEAKER) (test code = 1.6 mg/dL 1.6-2.6 627) Printed Circuit Boards Inspector ID - MARCOBASIC METABOLIC [id number] 05:19:28 Test Item Value Reference Range Interpretation [...] not appl icable for dialysis patien ts Printed Circuit Boards Inspector ID - MARCOCBC W/PLT COUNT & AUTO [id number] 05:08:02 Test Item Value Reference Range Interpretation [...] PERCENT (BEAKER) (test code = 2801) POCT-GLUCOSE [id number] 20:55:40 Test Item Value Reference Range Interpretation Comments POC-GLUCOSE METER 188 mg/dL 70-110 H : TESTED A T [facility] 6720 (BEAKER) (test code = [facility], 153) 17[address]: Printed Circuit Boards Inspector/Techni dakota ID = [id number] for VIOLETA RODGERS POCT-GLUCOSE [id number] 16:38:41 Test Item Value Reference Range Interpretation Comments POC-GLUCOSE METER 186 mg/dL 70-110 H : TESTED A T [facility] 6720 (BEAKER) (test code = [facility], 153) [address]: Printed Circuit Boards Inspector/Techni dakota ID = [id number] for QUEEN HONEYCUTT POCT-GLUCOSE [id number] 11:08:21 Test Item Value Reference Range Interpretation Comments POC-GLUCOSE METER 143 mg/dL 70-110 H : TESTED A T [facility] 6720 (BEAKER) (test code = [facility], 153) [address]: Printed Circuit Boards Inspector/Techni dakota ID = [id number] for QUEEN HONEYCUTT POCT-GLUCOSE [id number] 07:08:50 Test Item Value Reference Range Interpretation Comments POC-GLUCOSE METER 168 mg/dL 70-110 H : [facility] (BEAKER) (test code = [place], 1538) [address]: Printed Circuit Boards Inspector/Techni dakota ID = [id number] for QUEEN HONEYCUTT BASIC METABOLIC [id number] 04:24:26 Test Item Value Reference Range Interpretation [...] not appl icable for dialysis patien ts Printed Circuit Boards Inspector ID - [id number] 04:24:26 Test Item Value Reference Range Interpretation Comments MAGNESIUM (BEAKER) (test code = 1.5 mg/dL 1.6-2.6 L 627) Printed Circuit Boards Inspector ID - [id number] 04:24:26 Test Item Value Reference Range Interpretation Comments PHOSPHORUS (BEAKER) (test code = 3.1 mg/dL 2.3-4.7 604) [employer] Circuit Boards Inspector ID - MARCOCBC W/PLT COUNT & AUTO [id number] 04:14:14 Test Item Value Reference Range Interpretation [...] PERCENT (BEAKER) (test code = 2801) POCT-GLUCOSE [id number] 21:34:17 Test Item Value Reference Range Interpretation Comments POC-GLUCOSE METER 252 mg/dL 70-110 H : [facility] [facility] 6720 (BEAKER) (test code = [place], 1538) [address]: Printed Circuit Boards Inspector/Techni dakota ID = [id number] for VIOLETA RODGERS U/S, ABDOMINAL, [id number] 17:51:00Abdomen limited area? Add comment if clarification is needed.->Gallbladder Reason for exam:->acute on chronic pancreatitis, never had ultrasound please assess for gallstones, [facility] : 2000 Sex: MFINAL REPORT U/S, ABDOMINAL, LIMITED CLINICAL HISTORY: acute on chronic pancreatitis, never had ultrasound please assess for gallstones, thank you Comparison: CT of the abdomen and dtecdl1903/11/2022 TECHNIQUE: Real time grayscale and color Doppler [...] right upper quadrant abdominal ultrasound. Signed: Cira Dorado Verified Date/Time: 05/26/2022 17:51:31 Reading Location: [address] Reading Room POCT-GLUCOSE [id number] 16:35:02 Test Item Value Reference Range Interpretation Comments POC-GLUCOSE METER 122 mg/dL 70-110 H : TESTED A T [facility] 6720 ([facility]) (test code = [place] [facility], 1538) [address]: Printed Circuit Boards Inspector/Techni dakota ID = [id number] for QUEEN HONEYCUTT POCT-GLUCOSE [id number] 12:55:26 Test Item Value Reference Range Interpretation Comments POC-GLUCOSE METER 104 mg/dL 70-110 : TESTED A T [facility] 6720 (BEAKER) (test code = [place] [facility], 1538) [address]: Printed Circuit Boards Inspector/Techni dakota ID = [id number] for QUEEN HONEYCUTT Urinalysis w/Mvhrjmbydue7101-48-61 12:00:56 Test Item Value Reference Range Interpretation Comments Color, UA (test code Yellow = 5778-6) Clarity, UA (test Clear code = 5767-9) Specific [place], UA 1.030 1.001-1.035 (test code = 5811-5) pH, UA (test code = 5.5 5.0-8.0 5803-2) Protein, UA (test 30 mg/dL Negative A code = 66265-3) Glucose, UA (test Negative Negative code = 365) Ketones, UA (test Negative Negative code = 2514-8) Bilirubin, UA (test Negative Negative code = 31227-6) Blood, UA (test code Moderate Negative A = 76397-8) Nitrite, UA (test Negative Negative code = 5802-4) Leukocytes, UA (test Negative Negative code = 5799-2) Urobilinogen, UA 0.2 0.2-1.0 (test code = 57407-3) RBC, UA (test code = 6 See_Comment [Autom ated 96416-2) message] The system which generated this result [...] 1 See_Comment [Automate d (test code = 64750-4) messag e] The system which generated this result transmit hernandez reference range : /LPF. The reference range was not used to interpret this result as normal/abnormal . Specimen Source (test Urine, Clean code = 2795) Catch IDALIA (test code = IDALIA) Printed Circuit Boards Inspector ID - [auto]Printed Circuit Boards Inspector ID - tech Lab Interpretation Abnormal (test code = 90770-7) [facility]/Ittuaydujxc9944-56-47 12:00:56 Test Item Value Reference Range Interpretation Comments Color, UA (test code Yellow = 5778-6) Clarity, UA (test Clear code = 5767-9) Specific [place], UA 1.030 1.001-1.035 (test code = 5811-5) pH, UA (test code = 5.5 5.0-8.0 5803-2) Protein, UA (test 30 mg/dL Negative A code = 27698-6) Glucose, UA (test Negative Negative code = 365) Ketones, UA (test Negative Negative code = 2514-8) Bilirubin, UA (test Negative Negative code = 72483-1) Blood, UA (test code Moderate Negative A = 77475-1) Nitrite, UA (test Negative Negative code = 5802-4) Leukocytes, UA (test Negative Negative code = 5799-2) Urobilinogen, UA 0.2 0.2-1.0 (test code = 32956-2) RBC, UA (test code = 6 See_Comment [Autom ated 72476-3) message] The system which generated this result [...] 1 See_Comment [Automate d (test code = 37964-1) messag e] The system which generated this result transmit hernandez reference range : /LPF. The reference range was not used to interpret this result as normal/abnormal . Specimen Source (test Urine, Clean code = 2795) Catch IDALIA (test code = IDALIA) Printed Circuit Boards Inspector ID - [auto]Printed Circuit Boards Inspector ID - tech Lab Interpretation Abnormal (test code = 83953-3) [facility]/Edrqiafahef5490-46-27 12:00:56 Test Item Value Reference Range Interpretation Comments Color, UA (test code Yellow = 5778-6) Clarity, UA (test Clear code = 5767-9) Specific [place], UA 1.030 1.001-1.035 (test code = 5811-5) pH, UA (test code = 5.5 5.0-8.0 5803-2) Protein, UA (test 30 mg/dL Negative A code = 75989-1) Glucose, UA (test Negative Negative code = 365) Ketones, UA (test Negative Negative code = 2514-8) Bilirubin, UA (test Negative Negative code = 49287-4) Blood, UA (test code Moderate Negative A = 55282-4) Nitrite, UA (test Negative Negative code = 5802-4) Leukocytes, UA (test Negative Negative code = 5799-2) Urobilinogen, UA 0.2 0.2-1.0 (test code = 32923-4) RBC, UA (test code = 6 See_Comment [Autom ated 16769-6) message] The system which generated this result [...] 1 See_Comment [Automate d (test code = 72715-0) carlosag e] The system which generated this result transmit hernandez reference range : /LPF. The reference range was not used to interpret this result as normal/abnormal . Specimen Source (test Urine, Clean code = 4055) Catch IDALIA (test code = IDALIA) Printed Circuit Boards Inspector ID - [auto]Printed Circuit Boards Inspector ID - tech Lab Interpretation Abnormal (test code = 03207-6) [facility]/ [id number] 12:00:56 Test Item Value Reference Range Interpretation [...] (test code Urine, Clean Catch = 2795) Printed [employer] Boards Inspector ID - [auto]Printed Circuit Boards Inspector ID - techCOMPREHENSIVE METABOLIC [id number] 11:24:00 Test Item Value Reference Range Interpretation [...] not appl icable for dialysis patien ts Printed Circuit Boards Inspector ID - PIAYA LSARS-COV2/RT-PCR ([facility])2022-05-26 11:16:02 Test Item Value Reference Range Interpretation Comments SARS-COV2/RT-PCR Negative Negative The SARS-Co V-2 target (test code = nucleic acids a re not 1960277) detected in thi s specimen. Negative result [...] revoked sooner. Fact Sheet for Healthcare Providers: https://www.[employer] m/Documents/Xpert%20Xpress%20SARS%20CoV-2/Fact%20Sheets/3023802%49EFBB-LDU-3%20 HEALTHCARE%20PROVIDERS%20FACT%20SHEET.pdf Fact Sheet for Healthcare Patients: https://www.[employer]/Documents/Xpert%20Xp ress%20SARS%20CoV-2/Fact%20Sheets/3023801%48ZZBT-YPP-6%20PATIENT%20FACT%20SHEET .pdfCBC W/PLT COUNT & AUTO [id number] 10:36:11 Test Item Value Reference Range Interpretation [...] 0.00-1.00 PERCENT (BEAKER) (test code = 2801) [id number] 07:14:17 Test Item Value Reference Range Interpretation Comments FERRITIN (BEAKER) (test code = 254.34 ng/mL 5.00-275.00 361) Printed Circuit Boards Inspector ID - MARCOCOMPLEMENT COMPONENT [id number] 06:53:04 Test Item Value Reference Range Interpretation Comments C4 COMPLEMENT (BEAKER) (test code = 8 mg/dL 15-57 L 394) Printed Circuit Boards Inspector ID - PIAYA LCOMPLEMENT COMPONENT [id number] 06:53:04 Test Item Value Reference Range Interpretation Comments C3 COMPLEMENT (BEAKER) (test code = 72 mg/dL 82-193 L 393) Printed Circuit Boards Inspector ID - MARIBEL ZHU, TIBC, % SAT. (WITHOUT FERRITIN)2022-05-26 06:52:19 Test Item Value Reference Range Interpretation Comments IRON (BEAKER) (test code = 547) 20.0 ug/dL 40.0-160.0 L TOTAL IRON BINDING CAPACITY 234 ug/dL 250-450 L (BEAKER) (test code = 769) IRON % SATURATION (2) (BEAKER) 9 % 20-55 L (test code = 2590) Printed Circuit Boards Inspector ID - MARCOBLOOD [id number] 10:06:46 Test Item Value Reference Range Interpretation Comments CULTURE (BEAKER) (test No growth in 5 days code = 1095) Specimen received, ordered, and processed during a system downtime event in February 2022[facility] 13:52:35 Test Item Value Reference Range Interpretation Comments Result (test code = No growth 6463-4) IDALIA (test code = IDALIA) Specimen Received and Processed during Downtime in February 2022. [facility]2022-12-12 13:52:35 Test Item Value Reference Range Interpretation Comments Result (test code = No growth 6463-4) IDALIA (test code = IDALIA) Specimen Received and Processed during Downtime in February 2022. [facility]2022-12-12 13:52:35 Test Item Value Reference Range Interpretation Comments Result (test code = No growth 6463-4) IDALIA (test code = IDALIA) Specimen Received and Processed during Downtime in February 2022. [facility]2022-12-12 13:52:35 Test Item Value Reference Range Interpretation Comments Result (test code = No growth 6463-4) IDALIA (test code = IDALIA) Specimen Received and Processed during Downtime in February 2022. [facility]2022-12-12 13:52:35 Test Item Value Reference Range Interpretation Comments CULTURE (BEAKER) (test code = 1095) No growth Specimen Received and Processed during Downtime in February 2022.COMPREHENSIVE METABOLIC [id number] 08:39:02 Test Item Value Reference Range Interpretation [...] for dialysis patien ts Clostridium difficile GDH [id number] 13:58:24 Test Item Value Reference Range Interpretation Comments C. Difficle Toxin Negative Negative (test code = 2915765518) C. Difficile GDH Negative Negative No indicati on of Antigen (test code = Clostri dium 5687196662) difficile infection and n o colonization. Discontinue enteric isolati on and therapy. IDALIA (test code = Testing performed IDALIA) by Alere Rapid Cassette Assay. For GDH, published sensitivity of the assay is 98.7% compared to cytotoxicity testing. For Toxin AB, published sensitivity is 87.8% and specificity 99.4% compared to cytotoxicity testing.Verificati on of kit performance was done by the [facility] Microbiology Lab prior to clinical use. Lab Interpretation Normal (test code = 16411-0) [facility] Center[facility]ostridium difficile [facility] [id number] 13:58:24 Test Item Value Reference Range Interpretation Comments C. Difficle Toxin Negative Negative (test code = 6172821183) C. Difficile GDH Negative Negative No indicati on of Antigen (test code = Clostri dium 9388353150) difficile infection and n o colonization. Discontinue enteric isolati on and therapy. IDALIA (test code = Testing performed IDALIA) by Alere Rapid Cassette Assay. For GDH, published sensitivity of the assay is 98.7% compared to cytotoxicity testing. For Toxin AB, published sensitivity is 87.8% and specificity 99.4% compared to cytotoxicity testing.Verificati on of kit performance was done by the [facility] Microbiology Lab prior to clinical use. Lab Interpretation Normal (test code = 56709-7) [facility] Center[facility]ostridium difficile [facility] [id number] 13:58:24 Test Item Value Reference Range Interpretation Comments C. Difficle Toxin Negative Negative (test code = 7152404517) C. Difficile GDH Negative Negative No indicati on of Antigen (test code = Clostri dium 7490437532) difficile infection and n o colonization. Discontinue enteric isolati on and therapy. IDALIA (test code = Testing performed IDALIA) by Alere Rapid Cassette Assay. For GDH, published sensitivity of the assay is 98.7% compared to cytotoxicity testing. For Toxin AB, published sensitivity is 87.8% and specificity 99.4% compared to cytotoxicity testing.Verificati on of kit performance was done by the [facility] Microbiology Lab prior to clinical use. Lab Interpretation Normal (test code = 18004-4) [facility] Center[facility]ost[facility] difficile [facility] [id number] 13:58:24 Test Item Value Reference Range Interpretation Comments C. Difficle Toxin Negative Negative (test code = 2732114769) C. Difficile GDH Negative Negative No indicati on of Antigen (test code = Clostri dium 3436108888) difficile infection and n o colonization. Discontinue enteric isolati on and therapy. IDALIA (test code = Testing performed IDALIA) by Alere Rapid Cassette Assay. For GDH, published sensitivity of the assay is 98.7% compared to cytotoxicity testing. For Toxin AB, published sensitivity is 87.8% and specificity 99.4% compared to cytotoxicity testing.Verificati on of kit performance was done by the [facility] Microbiology Lab prior to clinical use. Lab Interpretation Normal (test code = 19850-0) [facility]. DIFFICILE GDH [id number] 13:58:24 Test Item Value Reference Range Interpretation Comments CDT TOXIN (test code Negative Negative = 0069666660) CDT GDH ANTIGEN (test Negative Negative No ind ication of code = 0607193508) Clostridi um difficile infection and n o colonization. Discontinue ent felicity isolation and t herapy. Testing performed by Alere Rapid Cassette Assay. For GDH, published sensitivity of the assay is 98.7% compared to cytotoxicity testing. For Toxin AB, published sensitivity is 87.8% and specificity 99.4% compared to cytotoxicity testing.Verification of kit performance was done by the [facility] MicrobiologyLab prior to clinical use.GI Pathogen Profile by [id number] 08:47:53 Test Item Value Reference Range Interpretation Comments CAMPYLOBACTER PCR (test Not detected Not detected code = 36475-1) PLESIOMONAS SHIGELLOIDES Not detected Not detected (PCR) (test code = 68774-4) SALMONELLA (PCR) (test Not detected Not detected code = 46177-6) YERSINIA ENTEROCOLITICA Not detected Not detected (PCR) (test code = 72929-5) VIBRIO CHOLERAE (PCR) Not detected Not detected (test code = 89802-8) ENTEROAGGREGATIVE E. Not detected Not detected COLI (EAEC) BY PCR (test code = 26543-5) ENTEROPATHOGENIC E. COLI Not detected Not detected (EPEC) BY PCR (test code = 22291-5) ENTEROTOXIGENIC E. COLI Not detected Not detected (ETEC) LT/ST BY PCR (test code = 72234-0) SHIGA-LIKE Not detected Not detected TOXIN-PRODUCING E. COLI (STEC) STX1/STX2 (test code = 78376-6) E. COLI O157 (PCR) (test Not detected Not detected code = 30953-0) SHIGELLA/ENTEROINVASIVE Not detected Not detected E. COLI (EIEC) BY PCR (test code = 92688-8) CRYPTOSPORIDIUM (PCR) Not detected Not detected (test code = 20008-3) CYCLOSPORA CAYETANENSIS Not detected Not detected (PCR) (test code = 95609-0) ENTAMOEBA HISTOLYTICA Not detected Not detected (PCR) (test code = 19227-1) GIARDIA LAMBLIA (PCR) Not detected Not detected (test code = 29032-2) ADENOVIRUS F 40/41 (PCR) Not detected Not detected (test code = 80504-8) ASTROVIRUS (PCR) (test Not detected Not detected code = 10281-1) NOROVIRUS GI/GII (PCR) (test code = 47287-2) ROTAVIRUS A (PCR) (test Not detected Not detected code = 55609-5) SAPOVIRUS (I, II, IV, V) Not detected Not detected BY PCR (test code = 78155-4) VIBRIO Not detected Not detected (PARAHAEMOLYTICUS, VULNIFICUS) (test code = 51689-5) IDALIA (test code = IDALIA) Other viruses, parasites and bacteria not targeted by this PCR panel cannot be excluded; therefore clinical correlation and follow up of serology, culture results, and other molecular studies is required. The results are not intended to be used as the sole means for clinical diagnosis or patient management decisions. This sample was tested at the [facility] Molecular Diagnostics Laboratory using the FIXO Gastrointestinal Panel. It is FDA cleared and has been verified and approved by the [facility] Molecular Diagnostics Laboratory for clinical use. This laboratory is CLIA-certified and [employer] (CAP)-accredited to perform high complexity testing. [facility] Center[facility] Pathogen Profile by [id number] 08:47:53 Test Item Value Reference Range Interpretation Comments CAMPYLOBACTER PCR (test Not detected Not detected code = 68194-4) PLESIOMONAS SHIGELLOIDES Not detected Not detected (PCR) (test code = 01677-6) SALMONELLA (PCR) (test Not detected Not detected code = 89658-8) YERSINIA ENTEROCOLITICA Not detected Not detected (PCR) (test code = 67871-0) VIBRIO CHOLERAE (PCR) Not detected Not detected (test code = 56261-1) ENTEROAGGREGATIVE E. Not detected Not detected COLI (EAEC) BY PCR (test code = 15028-0) ENTEROPATHOGENIC E. COLI Not detected Not detected (EPEC) BY PCR (test code = 62014-7) ENTEROTOXIGENIC E. COLI Not detected Not detected (ETEC) LT/ST BY PCR (test code = 64418-6) SHIGA-LIKE Not detected Not detected TOXIN-PRODUCING E. COLI (STEC) STX1/STX2 (test code = 41111-3) E. COLI O157 (PCR) (test Not detected Not detected code = 05698-7) SHIGELLA/ENTEROINVASIVE Not detected Not detected E. COLI (EIEC) BY PCR (test code = 76791-1) CRYPTOSPORIDIUM (PCR) Not detected Not detected (test code = 27202-8) CYCLOSPORA CAYETANENSIS Not detected Not detected (PCR) (test code = 65305-9) ENTAMOEBA HISTOLYTICA Not detected Not detected (PCR) (test code = 02837-3) GIARDIA LAMBLIA (PCR) Not detected Not detected (test code = 00497-5) ADENOVIRUS F 40/41 (PCR) Not detected Not detected (test code = 71838-7) ASTROVIRUS (PCR) (test Not detected Not detected code = 44490-2) NOROVIRUS GI/GII (PCR) (test code = 93026-8) ROTAVIRUS A (PCR) (test Not detected Not detected code = 62716-1) SAPOVIRUS (I, II, IV, V) Not detected Not detected BY PCR (test code = 41170-2) VIBRIO Not detected Not detected (PARAHAEMOLYTICUS, VULNIFICUS) (test code = 40893-3) IDALIA (test code = IDALIA) Other viruses, parasites and bacteria not targeted by this PCR panel cannot be excluded; therefore clinical correlation and follow up of serology, culture results, and other molecular studies is required. The results are not intended to be used as the sole means for clinical diagnosis or patient management decisions. This sample was tested at the [facility] Molecular Diagnostics Laboratory using the FIXO Gastrointestinal Panel. It is FDA cleared and has been verified and approved by the [facility] Molecular Diagnostics Laboratory for clinical use. This laboratory is CLIA-certified and [employer] (CAP)-accredited to perform high complexity testing. [facility] Profile by [id number] 08:47:53 Test Item Value Reference Range Interpretation Comments CAMPYLOBACTER PCR (test Not detected Not detected code = 40453-1) PLESIOMONAS SHIGELLOIDES Not detected Not detected (PCR) (test code = 12769-9) SALMONELLA (PCR) (test Not detected Not detected code = 66696-1) YERSINIA ENTEROCOLITICA Not detected Not detected (PCR) (test code = 82751-8) VIBRIO CHOLERAE (PCR) Not detected Not detected (test code = 63676-4) ENTEROAGGREGATIVE E. Not detected Not detected COLI (EAEC) BY PCR (test code = 10050-7) ENTEROPATHOGENIC E. COLI Not detected Not detected (EPEC) BY PCR (test code = 38740-4) ENTEROTOXIGENIC E. COLI Not detected Not detected (ETEC) LT/ST BY PCR (test code = 51962-6) SHIGA-LIKE Not detected Not detected TOXIN-PRODUCING E. COLI (STEC) STX1/STX2 (test code = 13939-5) E. COLI O157 (PCR) (test Not detected Not detected code = 68500-6) SHIGELLA/ENTEROINVASIVE Not detected Not detected E. COLI (EIEC) BY PCR (test code = 48782-0) CRYPTOSPORIDIUM (PCR) Not detected Not detected (test code = 72812-7) CYCLOSPORA CAYETANENSIS Not detected Not detected (PCR) (test code = 00380-4) ENTAMOEBA HISTOLYTICA Not detected Not detected (PCR) (test code = 42653-6) GIARDIA LAMBLIA (PCR) Not detected Not detected (test code = 43624-5) ADENOVIRUS F 40/41 (PCR) Not detected Not detected (test code = 23270-2) ASTROVIRUS (PCR) (test Not detected Not detected code = 48895-1) NOROVIRUS GI/GII (PCR) (test code = 71550-6) ROTAVIRUS A (PCR) (test Not detected Not detected code = 24877-5) SAPOVIRUS (I, II, IV, V) Not detected Not detected BY PCR (test code = 99872-8) VIBRIO Not detected Not detected (PARAHAEMOLYTICUS, VULNIFICUS) (test code = 22762-3) IDALIA (test code = IDALIA) Other viruses, parasites and bacteria not targeted by this PCR panel cannot be excluded; therefore clinical correlation and follow up of serology, culture results, and other molecular studies is required. The results are not intended to be used as the sole means for clinical diagnosis or patient management decisions. This sample was tested at the [facility] Molecular Diagnostics Laboratory using the FIXO Gastrointestinal Panel. It is FDA cleared and has been verified and approved by the [facility] Molecular Diagnostics Laboratory for clinical use. This laboratory is CLIA-certified and [employer] (CAP)-accredited to perform high complexity testing. [facility] Profile by [id number] 08:47:53 Test Item Value Reference Range Interpretation Comments CAMPYLOBACTER PCR (test Not detected Not detected code = 92969-7) PLESIOMONAS SHIGELLOIDES Not detected Not detected (PCR) (test code = 49275-7) SALMONELLA (PCR) (test Not detected Not detected code = 03301-6) YERSINIA ENTEROCOLITICA Not detected Not detected (PCR) (test code = 88525-0) VIBRIO CHOLERAE (PCR) Not detected Not detected (test code = 24138-7) ENTEROAGGREGATIVE E. Not detected Not detected COLI (EAEC) BY PCR (test code = 76500-1) ENTEROPATHOGENIC E. COLI Not detected Not detected (EPEC) BY PCR (test code = 80713-7) ENTEROTOXIGENIC E. COLI Not detected Not detected (ETEC) LT/ST BY PCR (test code = 12014-1) SHIGA-LIKE Not detected Not detected TOXIN-PRODUCING E. COLI (STEC) STX1/STX2 (test code = 24567-3) E. COLI O157 (PCR) (test Not detected Not detected code = 71436-1) SHIGELLA/ENTEROINVASIVE Not detected Not detected E. COLI (EIEC) BY PCR (test code = 96625-7) CRYPTOSPORIDIUM (PCR) Not detected Not detected (test code = 43722-7) CYCLOSPORA CAYETANENSIS Not detected Not detected (PCR) (test code = 27592-2) ENTAMOEBA HISTOLYTICA Not detected Not detected (PCR) (test code = 77571-1) GIARDIA LAMBLIA (PCR) Not detected Not detected (test code = 38867-0) ADENOVIRUS F 40/41 (PCR) Not detected Not detected (test code = 16339-1) ASTROVIRUS (PCR) (test Not detected Not detected code = 19079-4) NOROVIRUS GI/GII (PCR) (test code = 20217-4) ROTAVIRUS A (PCR) (test Not detected Not detected code = 90679-1) SAPOVIRUS (I, II, IV, V) Not detected Not detected BY PCR (test code = 64087-8) VIBRIO Not detected Not detected (PARAHAEMOLYTICUS, VULNIFICUS) (test code = 89432-1) IDALIA (test code = IDALIA) Other viruses, parasites and bacteria not targeted by this PCR panel cannot be excluded; therefore clinical correlation and follow up of serology, culture results, and other molecular studies is required. The results are not intended to be used as the sole means for clinical diagnosis or patient management decisions. This sample was tested at the [facility] Molecular Diagnostics Laboratory using the FIXO Gastrointestinal Panel. It is FDA cleared and has been verified and approved by the [facility] Molecular Diagnostics Laboratory for clinical use. This laboratory is CLIA-certified and [employer] (CAP)-accredited to perform high complexity testing. [facility] Center[facility]EN PROFILE BY [id number] 08:47:53 Test Item Value Reference Range Interpretation Comments CAMPYLOBACTER (PCR) (test code = Not detected Not detected 20151122) PLESIOMONAS SHIGELLOIDES (PCR) Not detected Not detected (test code = 20151126) SALMONELLA (PCR) (test code = Not detected Not detected ) YERSINIA ENTEROCOLITICA (PCR) Not detected Not detected (test code = 0638960) VIBRIO CHOLERAE (PCR) (test code Not detected Not detected = 20151220) ENTEROAGGREGATIVE E. COLI (EAEC) Not detected Not detected BY PCR (test code = 4788498) ENTEROPATHOGENIC E. COLI (EPEC) Not detected Not detected BY PCR (test code = 2054093) ENTEROTOXIGENIC E. COLI (ETEC) Not detected Not detected LT/ST BY PCR (test code = 6685607) SHIGA-LIKE TOXIN-PRODUCING E. Not detected Not detected COLI (STEC) PCR (test code = 3281216) E. COLI O157 (PCR) (test code = [...] (test Not detected Not detected code = 3444481) ASTROVIRUS (PCR) (test code = Not detected [...] decisions. This sample was tested at the [facility] Molecular Diagnostics Laboratory using the [employer] Gastrointestinal Panel. It is FDA cleared and has been verified and approved by the [facility] Molecular Diagnostics Laboratory for clinical use. This laboratory is CLIA-certified and College ofAmerican Pathologists (CAP)-accredited to perform high complexity testing.AFB culture + smear (non-sputum)2022-03-29 15:57:56 Test Item Value Reference Range Interpretation Comments Result (test code = No acid-fast bacilli 6463-4) isolated in 42 days AFB Smear (test code = No acid fast bacilli 82528-9) [facility]2022-03-29 15:57:56 Test Item Value Reference Range Interpretation Comments Result (test code = No acid-fast bacilli 6463-4) isolated in 42 days AFB Smear (test code = No acid fast bacilli 57729-2) [facility] ([facility]-sputum)2022-03-29 15:57:56 Test Item Value Reference Range Interpretation Comments Result (test code = No acid-fast bacilli 6463-4) isolated in 42 days AFB Smear (test code = No acid fast bacilli 45077-4) [facility] ([facility]-sputum)2022-03-29 15:57:56 Test Item Value Reference Range Interpretation Comments Result (test code = No acid-fast bacilli 6463-4) isolated in 42 days AFB Smear (test code = No acid fast bacilli 17087-0) [facility]AR (NON-SPUTUM)2022-03-29 15:57:56 Test Item Value Reference Range Interpretation Comments CULTURE (BEAKER) (test No acid-fast bacilli code = 1095) isolated in 42 days AFB SMEAR (BEAKER) No acid fast bacilli (test code = 994) seen Fungus culture + [id number] 21:09:03 Test Item Value Reference Range Interpretation Comments Result (test code = No fungus isolated in 6463-4) 28 days Fungus Smear (test No fungi seen code = 1406) [facility] [id number] 21:09:03 Test Item Value Reference Range Interpretation Comments Result (test code = No fungus isolated in 6463-4) 28 days Fungus Smear (test No fungi seen code = 1406) [facility] + [id number] 21:09:03 Test Item Value Reference Range Interpretation Comments Result (test code = No fungus isolated in 6463-4) 28 days Fungus Smear (test No fungi seen code = 1406) [facility] + [id number] 21:09:03 Test Item Value Reference Range Interpretation Comments Result (test code = No fungus isolated in 6463-4) 28 days Fungus Smear (test No fungi seen code = 1406) [facility] + [id number] 21:09:03 Test Item Value Reference Range Interpretation Comments CULTURE (BEAKER) (test No fungus isolated in code = 1095) 28 days FUNGUS SMEAR (BEAKER) No fungi seen (test code = 1406) COMP. METABOLIC PANEL (86571)2022-03-14 20:23:20 Test Item Value Reference Range Interpretation Comments NA (test code = 139 mmol/L 135-145 6734042382) K (test code = 4.4 mmol/L 3.5-5.0 9788332251) CL (test code = 98 mmol/L 98-108 7855392269) CO2 TOTAL (test code 30 mmol/L 23-31 = 0196589318) AGAP (test code = 2-16 7080244902) BUN (test code = 16 mg/dL 7-23 9636510186) GLUCOSE (test code = 104 mg/dL 70-110 8185849773) CREATININE (test code 0.64 mg/dL 0.50-1.04 = 5710058695) TOTAL BILI (test code 0.5 mg/dL 0.1-1.1 = 9303692550) CALCIUM (test code = 10.0 mg/dL 8.6-10.6 1588602190) T PROTEIN (test code 8.1 g/dL 6.3-8.2 = 1723593404) ALBUMIN (test code = 4.4 g/dL 3.5-5.0 5976901899) ALK PHOS (test code = 98 U/L 34-122 9440606003) ALTv (test code = 31 U/L 5-35 2-6) AST(SGOT) (test code 33 U/L 13-40 = 8550335429) eGFR (test code = mL/min/1.73m2 9011735814) IDALIA (test code = IDALIA) Association of [...] or urine or abnormalities in imaging tests). [facility] 20:23:20 Test Item Value Reference Range Interpretation Comments LIPASE (test code = 1478571015) 105 U/L 0-220 Lab Interpretation (test code = Normal 24142-2) [facility] WITH [id number] 20:11:38 Test Item Value Reference Range Interpretation [...] RDW-SD (test code = 48.9 fL 39.0-49.9 47220-9) RDW-CV (test code = 17.2 % 12.0-15.5 H 788-0) PLT (test code = See_Comment [Automated 777-3) message] The sy stem which generated this result transmitted reference range : 166 - 358 10*3/ ?L. The reference r colby was not used to interpret this result as normal/abnormal . MPV (test code = 10.1 fL 9.5-12.9 99171-7) NRBC/100 WBC (test See_Comment [Automat ed code = 9627132738) message] The system which generated this result transmitted reference range : 0.0 - 10.0 /100 WBCs. The refer ence range was not u sed to interpret th is result as normal/abnormal . NRBC x10^3 (test code See_Comment [Auto mated = 8360519100) message] The s ystem which generated this result transmitted reference range : 10*3/?L. The reference range was not used to interpret this result as normal/abnormal . GRAN MAT (NEUT) % 76.3 % (test code = 770-8) IMM GRAN % (test code 0.50 % = 7073919494) LYMPH % (test code = 14.1 % 736-9) MONO % (test code = 6.4 % 5905-5) EOS % (test code = 1.7 % 713-8) BASO % (test code = 1.0 % 706-2) GRAN MAT x10^3(ANC) 7.94 10*3/uL 1.88-7.09 H (test code = 2033994359) IMM GRAN x10^3 (test 0.05 10*3/uL 0.00-0.06 code = 2297499181) LYMPH x10^3 (test code 1.46 10*3/uL 1.32-3.29 = 731-0) MONO x10^3 (test code 0.66 10*3/uL 0.33-0.92 = 742-7) EOS x10^3 (test code = 0.18 10*3/uL 0.03-0.39 711-2) BASO x10^3 (test code 0.10 10*3/uL 0.01-0.07 H = 704-7) Lab Interpretation Abnormal (test code = 51747-8) [facility] METABOLIC [id number] 06:05:57 Test Item Value Reference Range Interpretation [...] not appl icable for dialysis patien ts [employer] Boards Inspector ID - MARIBEL Landintor ID - MARIBEL LCBC (HEMOGRAM ONLY)2022-03-12 05:32:20 Test Item Value [...] 0-0 (BEAKER) (test code = 413) CT, [id number] 09:26:00Unlisted Reason for Exam - Click Yes and Enter Reason Below->NoIs this for enterography?->NoWill this procedure require oral contrast?->Yes [facility] 2000 Sex: MFINAL [...] changes of the anterior abdominal wall. Impression: P ersistent but overall decreased appearance of multiloculated collections in the left upper quadrant between the greater curvature of the stomach and spleen. Reactive inflammation is seen in this region. Gastric wall thickening likely reactive. Signed: Cira Dorado MDReport Verified Date/Time: 03/11/2022 09:26:38 Reading Location: [address] Transitional Reading Room BASIC METABOLIC PANEL 2022-03-10 06:38:12 Test Item Value Reference Range Interpretation [...] not appl icable for dialysis patien ts [employer] Boards Inspector ID - ADMINCBC W/PLT COUNT & AUTO [id number] 05:54:20 Test Item Value Reference Range Interpretation [...] = 2801) RAD, CHEST, 1 VIEW, NON [id number] 15:36:0015T-10 [facility] 2000 Sex: MFINAL [...] the superior vena cava. Signed: Lew Garcia MDReport Verified Date/Time: 03/06/2022 15:36:20 Reading Location: [address] Reading [place], [id number] 09:42:00Pain. Hx LUQ collection assess for possible to drain now as well. [facility] 2000 Sex: MFINAL [...] Page MDReport Verified Date/Time: 03/01/2022 09:42:02 [place], ASPIRATION/[id number] 16:11:00[facility] 2000 [...] of approximately 3 cc of Isovue-300 contrast. Altitude Chamber Technician images saved in the patient's medical record. [...] of approximately 3 cc of Isovue-300 contrast. Altitude Chamber Technician images saved in the patient's medical record. [...] MDReport Verified Date/Time: 02/27/2022 16:11:07 Reading Location: [address] Ortho Consult Reading Room MR, EXTREMITY, LOWER, HIP JOINT, WITHOUT CONTRAST, [id number] 15:21:00 [facility] 2000 Sex: MFINAL REPORT MRI OF THE LEFT HIP HISTORY: Left hip pain, avascular necrosis, osteoarthritis COMPARISON: CT pelvis of 02/05/2022 TECHNIQUE: Multiplanar multisequence MRI of the left hip wasperformed without contrast. Examination included coronal large teavt-et-jrxj sequences of the pelvisand bilateral hips as well as dedicated small ugnle-mm-pvwn unilateral axial and sagittal oblique sequences of [...] MR, EXTREMITY, LOWER, HIP JOINT, WITHOUT CONTRAST, [id number] 15:17:00 [facility] 2000 Sex: MFINAL REPORT MRI OF THE RIGHT HIP HISTORY: Right hip pain, avascular necrosis, arthritis COMPARISON: CT pelvis of 02/05/2022 TECHNIQUE: Multiplanar multisequence MRI of the right hip was performed without contrast. Examination included coronal large xnlld-uz-jgsb sequences of the pelvis and bilateral hips as well as dedicated small dlmwe-da-jsgd unilateral axial and sagittal oblique sequences of [...] Date/Time: 02/25/2022 15:17:32 RAD, HIPS, 2 VIEWS, [id number] 15:03:00 [facility] 2000 [...] MDReport Verified Date/Time: 02/24/2022 15:03:53 Reading Location: [facility] B1 C013Y CT Body Reading Room - CT ABD PELVIS W/O CONT 2022-02-20 12:09:00 [facility] 2000 Sex: M FAX: Willard Vaughn Jr [phone] [place]: St: REG Name: VANGIE OVALLE [facility] : 2000 Age/S: 22/M [address] Unit: [id number] Loc: [place] [address] Phys: Willard Crouch Jr, MD Acct: [id number] Dis Date: Status: REG CLI PHONE #: [phone] Exam Date: 02/20/2022 1115 FAX #: [phone] Reason: FREQUENT BM EXAMS: CPT CODE: [id number] CT ABD PELVIS W/O CONT 74855 EXAM: - CT ABD PELVIS W/OCONT INDICATION: [...] 1 Signed Report(CONTINUED) FAX: Willard Vaughn Jr [phone] [place]: St: REG Name: VANGIE OVALLE [facility] : 2000 Age/S: 22/M [address] Unit: [id number] [place]: [place] [address] Phys: Willard Crouch Jr, MD Acct: [id number] Dis Date: Status: REG CLI PHONE #: [phone] Exam Date: 02/20/2022 1115 FAX #: [phone] Reason: FREQUENT BM EXAMS: CPT CODE: [id number] CT ABD PELVIS W/O CONT 50121 (Continued) Genitourinary:Urinary bladder appears to be mildly [...] MD CC: Willard Crouch Jr Technologist: LAMBERTO ARTEAGA; MIYA SHAFFER Trnscrd Dt/Tm: 02/20/2022 (1209) JozefR.AH26 PAGE 2 Signed ReportDOUBLE-STRANDED DNA (DSDNA) [id number] 12:26:46 Test Item Value Reference Range Interpretation Comments ANTI-DNA DS (BEAKER) (test code = Negative Negative 1055) Anaerobic [id number] 09:53:02 Test Item Value Reference Range Interpretation Comments Result (test code = No anaerobes isolated 6463-4) [facility] [id number] 09:53:02 Test Item Value Reference Range Interpretation Comments Result (test code = No anaerobes isolated 6463-4) [facility] Tvyqghu4023-67-13 09:53:02 Test Item Value Reference Range Interpretation Comments Result (test code = No anaerobes isolated 6463-4) [facility] [id number] 09:53:02 Test Item Value Reference Range Interpretation Comments Result (test code = No anaerobes isolated 6463-4) [facility] Fjnlfxd0564-58-15 09:53:02 Test Item Value Reference Range Interpretation Comments Result (test code = No anaerobes isolated 6463-4) [facility] Mbasnhi8446-30-55 09:53:02 Test Item Value Reference Range Interpretation Comments Result (test code = No anaerobes isolated 6463-4) [facility] [id number] 09:53:02 Test Item Value Reference Range Interpretation Comments CULTURE (BEAKER) (test No anaerobes isolated code = 1095) COMPLEMENT COMPONENT [id number] 13:18:38 Test Item Value Reference Range Interpretation Comments C3 COMPLEMENT (BEAKER) (test code = 103 mg/dL 82-193 393) [employer] Boards Inspector ID - AAHAMIDCOMPLEMENT COMPONENT [id number] 13:18:37 Test Item Value Reference Range Interpretation Comments C4 COMPLEMENT (BEAKER) (test code = 11 mg/dL 15-57 L 394) [employer] Inspector ID - AAHAMIDSURGICALLY OBTAINED CULTURE + GRAM [id number] 11:03:20 Test Item Value Reference Range Interpretation [...] No organisms seen (BEAKER) (test code = 512950) [id number] 06:37:27 Test Item Value Reference Range Interpretation Comments PHOSPHORUS (BEAKER) (test code = 3.5 mg/dL 2.3-4.7 604) [employer] Boards Inspector ID - PIAYA LBASIC METABOLIC [id number] 06:37:26 Test Item Value Reference Range Interpretation [...] not appl icable for dialysis patien ts [employer] Boards Inspector ID - MARIBEL [id number] 06:37:26 Test Item Value Reference Range Interpretation Comments MAGNESIUM (BEAKER) (test code = 1.5 mg/dL 1.6-2.6 L 627) [employer] Inspector ID - MARIBEL LCBC W/PLT COUNT & AUTO [id number] 05:01:09 Test Item Value Reference Range Interpretation [...] (BEAKER) (test code = 2801) BASIC METABOLIC [id number] 06:02:45 Test Item Value Reference Range Interpretation [...] De scription 1092) sq m Result G1 Kilye l or high >=90 G2 Mildly decreased [...] not appl icable for dialysis patien ts [employer] Boards Inspector ID - ALVINA MCBC W/PLT COUNT & AUTO [id number] 05:42:07 Test Item Value Reference Range Interpretation [...] = 2801) CBC W/PLT COUNT & AUTO [id number] 05:09:33 Test Item Value Reference Range Interpretation [...] 0-1 PERCENT (BEAKER) (test code = 2801) [id number] 04:56:25 Test Item Value Reference Range Interpretation Comments MAGNESIUM (BEAKER) (test code = 1.6 mg/dL 1.6-2.6 627) [employer] Boards Inspector ID - MARIBEL [id number] 04:56:25 Test Item Value Reference Range Interpretation Comments PHOSPHORUS (BEAKER) (test code = 2.7 mg/dL 2.3-4.7 604) [employer] Boards Inspector ID - MARIBEL LBASIC METABOLIC [id number] 04:56:24 Test Item Value Reference Range Interpretation [...] not appl icable for dialysis patien ts [employer] Boards Inspector ID - MARIBEL [id number] 10:33:28 Test Item Value Reference Range Interpretation Comments PHOSPHORUS (BEAKER) (test code = 3.0 mg/dL 2.3-4.7 604) [employer] Boards Inspector ID - ALVINA MBASIC METABOLIC [id number] 10:33:27 Test Item Value Reference Range Interpretation [...] not appl icable for dialysis patien ts [employer] Boards Inspector ID - ALVINA [id number] 10:33:27 Test Item Value Reference Range Interpretation Comments MAGNESIUM (BEAKER) (test code = 1.7 mg/dL 1.6-2.6 627) [employer] Inspector ID - ALVINA MCBC W/PLT COUNT & AUTO [id number] 10:29:43 Test Item Value Reference Range Interpretation [...] PERCENT (BEAKER) (test code = 2801) SPIN/CONCENTRATION [id number] 06:56:34 Test Item Value Reference Range Interpretation Comments Concentration charged (test code = Done 2656) [facility] [id number] 06:56:34 Test Item Value Reference Range Interpretation Comments Concentration charged (test code = Done 265) [facility] [id number] 06:56:34 Test Item Value Reference Range Interpretation Comments Concentration charged (test code = Done 265) [facility] [id number] 06:56:34 Test Item Value Reference Range Interpretation Comments Concentration charged (test code = Done 2657) [facility]PIN[facility]ATION [id number] 06:56:34 Test Item Value Reference Range Interpretation Comments Concentration charged (test code = Done 2656) [facility]ATION [id number] 06:56:34 Test Item Value Reference Range Interpretation Comments Concentration charged (test code = Done 2656) [facility] [id number] 06:56:34 Test Item Value Reference Range Interpretation Comments CONCENTRATION CHARGED (GENEVA) (test Done code = 2657) SARS-CoV2/RT-PCR (Asymptomatic ONLY)2022-02-07 12:35:45 Test Item Value Reference Range Interpretation Comments SARS-COV2/RT-PCR Negative Not Detected, (test code = Negative, See 57207-8) external report for linked test SARS-COV-2 [facility] PERFORMING LAB (test code = 68081-7) IDALIA (test code = Negative result for [...] of the Act. Fact Sheet for Healthcare Providers:https://www.scanR[employer]/sites/default/f anup/product/documents/F act_Sheet_HC_Providers_L nes_YTXM-WcR-8.pdf Fact Sheet for Healthcare Patients:https://www.[employer]sites/default/fi les/product/documents/Fa ct_Sheet_Patients_Selena_S ARS-CoV-2.pdf Performing Laboratory:[facility] [place] [address] [facility] CenterARS-[facility]-PCR (Asymptomatic ONLY)2022-02-07 12:35:45 Test Item Value Reference Range Interpretation Comments SARS-COV2/RT-PCR Negative Not Detected, (test code = Negative, See 32252-5) external report for linked test SARS-COV-2 [facility] PERFORMING LAB (test code = 57417-9) IDALIA (test code = Negative result for [...] of the Act. Fact Sheet for Healthcare Providers:https://www.scanR[employer]/sites/default/f anup/product/documents/F act_Sheet_HC_Providers_L wnu_OOIP-UaI-9.pdf Fact Sheet for Healthcare Patients:https://www.[employer]sites/default/fi les/product/documents/Fa ct_Sheet_Patients_Ly_S ARS-CoV-2.pdf Performing Laboratory:[facility], [place] [address] [place], [place] [address]ARS-CoV2/RT-PCR (Asymptomatic ONLY)2022-02-07 12:35:45 Test Item Value Reference Range Interpretation Comments SARS-COV2/RT-PCR Negative Not Detected, (test code = Negative, See 50016-4) external report for linked test SARS-COV-2 [facility] PERFORMING LAB (test code = 55493-3) IDALIA (test code = Negative result for [...] of the Act. Fact Sheet for Healthcare Providers:https://www.[employer]/sites/default/f anup/product/documents/F act_Sheet_HC_Providers_L nri_NWOS-SvW-5.pdf Fact Sheet for Healthcare Patients:https://www.[employer]sites/default/fi les/product/documents/Fa ct_Sheet_Patients_Lyra_S ARS-CoV-2.pdf Performing Laboratory:[facility] [place] [address] [facility] CenterARS-COV2/RT-PCR ([facility])2022-02-07 12:35:45 Test Item Value Reference Range Interpretation Comments SARS-COV2/RT-PCR (test Negative Not Detected, Negative, code = 1969835) See external report for linked test SARS-COV-[address] [facility]LE[facility] (test code = 5307753) Negative result for this test determines that [...] of the Act.Fact Sheet for Healthcare Prov iders:https://www.[employer]/sites/default/files/product/documents/Fact_Sheet_HC _Qwptnqvku_Rpqu_NJVB-DnN-6.pdfFact Sheet for Healthcare Patients:https://www.[employer]/sites/default/files/product/docume nts/Nxsz_Uirlg_Uhrayqkk_Mqjd_EBUZ-QlH-1.pdfPerforming Laboratory:[facility], [place] [id number] 05:26:59 Test Item Value Reference Range Interpretation Comments MAGNESIUM (BEAKER) (test code = 1.7 mg/dL 1.6-2.6 627) [employer] Boards Inspector ID - ALVINA [id number] 05:26:59 Test Item Value Reference Range Interpretation Comments PHOSPHORUS (BEAKER) (test code = 3.3 mg/dL 2.3-4.7 604) [employer] Boards Inspector ID - ALVINA MBASIC METABOLIC [id number] 05:26:58 Test Item Value Reference Range Interpretation [...] not appl icable for dialysis patien ts [employer] Boards Inspector ID - ALVINA MPROTHROMBIN TIME/[id number] 04:21:01 Test Item Value Reference Range Interpretation Comments PROTIME (BEAKER) 14.9 seconds 11.9-14.2 H (test code = 759) INR (BEAKER) (test 1.24 See_Comment [Automat ed message] code = 370) The system [employer] generated this result transmitted ref erence range: <=5.90. The reference range was not used to int erpret this result as normal/abnormal . RECOMMENDED COUMADIN/WARFARIN INR THERAPY RANGESSTANDARD DOSE: 2.0 - 3.0 Includes: PROPHYLAXIS for venous thrombosis, systemic embolization; TREATMENT for venous thrombosis and/or pulmonary embolus.HIGH RISK: Target INR is 2.5-3.5 for patients with mechanical heart valves.CBC W/PLT COUNT & AUTO [id number] 04:04:31 Test Item Value Reference Range Interpretation [...] = 2801) RAD, CHEST, 1 VIEW, NON [id number] 19:52:00Reason for exam:->post picc line insertionShould this be performed at the bedside?->Yes [facility] 2000 Sex: MFINAL [...] Alicia MDReport Verified Date/Time: 02/06/2022 19:52:18 CT, [id number] 11:33:00Unlisted Reason for Exam - Click Yes and Enter Reason Below->NoIs this for enterography?->NoWill this procedure require oral contrast?->No [facility] 2000 [...] degenerative changes of the left hip with nqec-km-mlhq and mild bony remodeling. IMPRESSION: 1.Minimal change [...] Felicity Novak Verified Date/Time: 02/05/2022 11:33:01 Reading Location:[facility] B1 C013Y CT Body Reading Room MAGNESIUM 2022-02-05 05:39:00 Test Item Value Reference Range Interpretation Comments MAGNESIUM (BEAKER) (test code = 1.6 mg/dL 1.6-2.6 627) [employer] Boards Inspector ID - PIAYA [id number] 05:39:00 Test Item Value Reference Range Interpretation Comments PHOSPHORUS (BEAKER) (test code = 2.5 mg/dL 2.3-4.7 604) [employer] Boards Inspector ID - PIJOVI LBASIC METABOLIC [id number] 05:38:59 Test Item Value Reference Range Interpretation [...] not appl icable for dialysis patien ts [employer] Boards Inspector ID - PIJOVI LCBC W/PLT COUNT & AUTO [id number] 04:47:57 Test Item Value Reference Range Interpretation [...] PERCENT (BEAKER) (test code = 2801) POC-Glucose [id number] 07:40:25 Test Item Value Reference Range Interpretation Comments POC-Glucose Meter (test 153 mg/dL 70-110 H : TE STED AT [facility] code = 1538) [address] [facility], [address] 30: Printed Circuit Boards Inspector/Techni dakota ID = [id number] for CONCEPCION KAY Lab Interpretation (test Abnormal code = 84709-1) [facility] [id number] 07:40:25 Test Item Value Reference Range Interpretation Comments POC-Glucose Meter (test 153 mg/dL 70-110 H : TE STED AT [facility] code = 1538) [address] [facility], 770 30: Printed Circuit Boards Inspector/Techni dakota ID = [id number] for CONCEPCION KAY Lab Interpretation (test Abnormal code = 32045-4) [facility]-Glucose [id number] 07:40:25 Test Item Value Reference Range Interpretation Comments POC-Glucose Meter (test 153 mg/dL 70-110 H : TE STED AT [facility] code = 1538) [address] [facility], 770 30: Printed Circuit Boards Inspector/Techni dakota ID = [id number] for CONCEPCION KAY Lab Interpretation (test Abnormal code = 75366-7) [facility]-GLUCOSE [id number] 07:40:25 Test Item Value Reference Range Interpretation Comments POC-GLUCOSE METER 153 mg/dL 70-110 H : TESTED A T [facility] 6720 (BEAKER) (test code = [place] [facility], 1538) [address]: [employer]ed Circuit Boards Inspector/Techni dakota ID = [id number] for CONCEPCION CORONADO [id number] 05:56:41 Test Item Value Reference Range Interpretation Comments PHOSPHORUS (BEAKER) (test code = 3.4 mg/dL 2.3-4.7 604) [employer] Boards Inspector ID - ALVINA MBASIC METABOLIC [id number] 05:56:40 Test Item Value Reference Range Interpretation [...] not appl icable for dialysis patien ts [employer] Boards Inspector ID - ALVINA MCBC W/PLT COUNT & AUTO [id number] 05:19:20 Test Item Value Reference Range Interpretation [...] PERCENT (BEAKER) (test code = 2801) POCT-GLUCOSE [id number] 18:17:28 Test Item Value Reference Range Interpretation Comments POC-GLUCOSE METER 119 mg/dL 70-110 H : [facility] [facility] 6720 (BEAKER) (test code = FREDOFRAN [place] [facility], 1538) [address]: Printed Circuit Boards Inspector/Techni dakota ID = [id number] for Melia Navarro, FLUORO, NON-SPECIFIC, UP TO 1 [id number] 12:15:00Reason for exam:- >Pancreatitis with fluid collection [facility] : 2000 Sex: MAn imaging unit was utilized for this procedure. No radiologist interpretation was requested. Refer to the EMR for findings. Refer to PACS for any patient radiation dose information.[id number] 06:20:54 Test Item Value Reference Range Interpretation Comments PHOSPHORUS (BEAKER) (test code = 4.1 mg/dL 2.3-4.7 604) Printed Circuit Boards Inspector ID - BSBASIC METABOLIC [id number] 06:20:53 Test Item Value Reference Range Interpretation [...] not appl icable for dialysis patien ts Printed Circuit Boards Inspector ID - BSCBC W/PLT COUNT & AUTO [id number] 06:17:18 Test Item Value Reference Range Interpretation [...] PERCENT (BEAKER) (test code = 2801) PROTHROMBIN TIME/[id number] 05:56:55 Test Item Value Reference Range Interpretation [...] 2.5-3.5 for patients with mechanical heart valves.SARS-COV2/RT-PCR ([facility]) 2022-02-01 11:35:08 Test Item Value Reference Range Interpretation Comments SARS-COV2/RT-PCR Negative Negative The SARS-Co V-2 target (test code = nucleic acids a re not 7490036) detected in thi s specimen. Negative result [...] revoked sooner. Fact Sheet for Healthcare Providers: https://www.[employer] m/Documents/Xpert%20Xpress%20SARS%20CoV-2/Fact%20Sheets/302-2636%94KDMK-MPC-5%20 HEALTHCARE%20PROVIDERS%20FACT%20SHEET.pdf Fact Sheet for Healthcare Patients: https://www.[employer]/Documents/Xpert%20Xp ress%20SARS%20CoV-2/Fact%20Sheets/302-3801%26BFKB-DKZ-0%20PATIENT%20FACT%20SHEET .[id number] 08:00:14 Test Item Value Reference Range Interpretation Comments PHOSPHORUS (BEAKER) (test code = 3.9 mg/dL 2.3-4.7 604) Printed Circuit Boards Inspector ID - MARIBEL LBASIC METABOLIC [id number] 08:00:13 Test Item Value Reference Range Interpretation [...] not appl icable for dialysis patien ts Printed Circuit Boards Inspector ID - MARIBEL LCBC W/PLT COUNT & AUTO [id number] 06:53:15 Test Item Value Reference Range Interpretation [...] PERCENT (BEAKER) (test code = 2801) PROTHROMBIN TIME/[id number] 06:23:20 Test Item Value Reference Range Interpretation Comments PROTIME (BEAKER) 14.1 seconds 11.9-14.2 (test code = 759) INR (GENEVA) (test 1.16 See_Comment [Automat ed message] code = 370) The system [employer] Its [employer] generated this result transmitted ref erence range: <=5.90. The reference range was not used to int erpret this result as normal/abnormal . RECOMMENDED COUMADIN/WARFARIN INR THERAPY RANGESSTANDARD DOSE: 2.0 - 3.0 Includes: PROPHYLAXIS for venous thrombosis, systemic embolization; TREATMENT for venous thrombosis and/or pulmonary embolus.HIGH RISK: Target INR is 2.5-3.5 for patients with mechanical heart valves.CT, [id number] 11:26:00Unlisted Reason for Exam - Click Yes and Enter Reason Below->NoIs this for enterography?->NoWill this procedure require oral contrast?->Yes [facility] : 2000 [...] at the gastrolienal ligament. Signed: Gokul Young [facility] Verified Date/Time: 01/31/2022 11:26:33 Reading Location: [facility] B1 C013Y CT Body Reading Room BASIC METABOLIC [id number] 07:01:22 Test Item Value Reference Range Interpretation [...] not appl icable for dialysis patien ts Printed Circuit Boards Inspector ID - ALVINA [id number] 07:01:21 Test Item Value Reference Range Interpretation Comments PHOSPHORUS (BEAKER) 3.6 mg/dL 2.3-4.7 Specimen slightly (test code = 604) hemolyzed Printed Circuit Boards Inspector BEATRIZ TINSLEY MCBC W/PLT COUNT & AUTO [id number] 06:23:58 Test Item Value Reference Range Interpretation [...] H PERCENT (BEAKER) (test code = 2801) [id number] 07:03:32 Test Item Value Reference Range Interpretation Comments PHOSPHORUS (BEAKER) 3.5 mg/dL 2.3-4.7 Specimen slightly (test code = 604) hemolyzed Printed Circuit Boards Inspector ID - PIAYA LBASIC METABOLIC [id number] 07:03:32 Test Item Value Reference Range Interpretation [...] not appl icable for dialysis patien ts Printed Circuit Boards Inspector ID - PIAYA LCBC W/PLT COUNT & AUTO [id number] 06:30:07 Test Item Value Reference Range Interpretation [...] H PERCENT (BEAKER) (test code = 2801) [id number] 08:28:15 Test Item Value Reference Range Interpretation Comments PHOSPHORUS (BEAKER) 3.5 mg/dL 2.3-4.7 Specimen slightly (test code = 604) hemolyzed Printed Circuit Boards Inspector ID - SHREE WBASIC METABOLIC [id number] 05:22:30 Test Item Value Reference Range Interpretation [...] not appl icable for dialysis patien ts Printed Circuit Boards Inspector ID - SHREE WCBC W/PLT COUNT & AUTO [id number] 04:54:08 Test Item Value Reference Range Interpretation [...] (BEAKER) (test code = 2801) BASIC METABOLIC [id number] 15:33:00 Test Item Value Reference Range Interpretation [...] not appl icable for dialysis patien ts Printed Circuit Boards Inspector ID - [id number] 15:32:59 Test Item Value Reference Range Interpretation Comments PHOSPHORUS (BEAKER) 2.1 mg/dL 2.3-4.7 L Specimen slightly (test code = 604) hemolyzed Printed Circuit Boards Inspector ID - MITCHCBC W/PLT COUNT & AUTO [id number] 15:08:06 Test Item Value Reference Range Interpretation [...] PERCENT (BEAKER) (test code = 2801) SARS-COV2/RT-PCR ([facility])2022-01-27 12:45:59 Test Item Value Reference Range Interpretation Comments SARS-COV2/RT-PCR Negative Negative The SARS-Co V-2 target (test code = nucleic acids a re not 2986747) detected in thi s specimen. Negative result [...] revoked sooner. Fact Sheet for Healthcare Providers: https://www.[employer] m/Documents/Xpert%20Xpress%20SARS%20CoV-2/Fact%20Sheets/302-5085%47UQDM-OHE-0%20 HEALTHCARE%20PROVIDERS%20FACT%20SHEET.pdf Fact Sheet for Healthcare Patients: https://www.[employer]/Documents/Xpert%20Xp ress%20SARS%20CoV-2/Fact%20Sheets/302-3801%63KQBC-FIK-0%20PATIENT%20FACT%20SHEET .pdfCOMPREHENSIVE METABOLIC [id number] 09:49:55 Test Item Value Reference Range Interpretation [...] not appl icable for dialysis patien ts Printed Circuit Boards Inspector ID - ALVINA MOperator ID - ALVINA [id number] 09:45:42 Test Item Value Reference Range Interpretation Comments MAGNESIUM (BEAKER) (test code = 1.6 mg/dL 1.6-2.6 627) Printed Circuit Boards Inspector ID - ALVINA [id number] 09:45:42 Test Item Value Reference Range Interpretation Comments PHOSPHORUS (BEAKER) (test code = 2.2 mg/dL 2.3-4.7 L 604) Printed Circuit Boards Inspector ID - ALVINA MCBC W/PLT COUNT & AUTO [id number] 06:05:25 Test Item Value Reference Range Interpretation [...] code = 2801) RAD, KNEE, 3 VIEWS, [id number] 14:50:00Is this procedure to be performed with weight bearing?->Non-Weight BearingReason for exam:->knee pain [facility] : 2000 [...] MDReport Verified Date/Time: 01/26/2022 14:50:13 Reading Location: [address] Reading Room RAD, KNEE, 3 VIEWS, [id number] 14:00:00Is this procedure to be performed with weight bearing?->Non-Weight BearingReason for exam:->knee pain [facility] 2000 Sex: MFINAL [...] MDReport Verified Date/Time: 01/26/2022 14:00:42 Reading Location: [address] Reading Room ANTI-DNA [id number] 12:29:53 Test Item Value Reference Range Interpretation Comments ANTI-DNA TITER (BEAKER) (test code = :160 1553) DOUBLE-STRANDED DNA (DSDNA) [id number] 12:29:42 Test Item Value Reference Range Interpretation Comments ANTI-DNA DS (BEAKER) (test code = Positive Negative 1055) COMPLEMENT COMPONENT [id number] 12:26:40 Test Item Value Reference Range Interpretation Comments C3 COMPLEMENT (BEAKER) (test code = 55 mg/dL 82-193 L 393) Printed Circuit Boards Inspector ID - TANYA MCOMPLEMENT COMPONENT [id number] 12:26:39 Test Item Value Reference Range Interpretation Comments C4 COMPLEMENT (BEAKER) (test code = 6 mg/dL 15-57 L 394) Printed Circuit Boards Inspector ID - TANYA MHEMOGLOBIN [id number] 09:30:34 Test Item Value Reference Range Interpretation Comments HEMOGLOBIN A1C 5.0 % See_Comment [Automated m essage] ELECTROPHORESIS (BEAKER) The system which (test code = 3811) generated this result transmitted ref erence range: <=5.6%. The reference range was not used to int erpret this result as normal/abnormal . "The A1c is measured using a [facility]-certified method. HbA1c value equal to or greater than 6.5% as thediagnosis cutoff for diabetes. An HbA1c value of 5.7- 6.4% indicates increased risk for diabetes (prediabetes)."Printed Circuit Boards Inspector ID - [id number] 07:56:27 Test Item Value Reference Range Interpretation Comments MAGNESIUM (BEAKER) (test code = 1.9 mg/dL 1.6-2.6 627) Printed Circuit Boards Inspector ID - ALVINA [id number] 07:56:27 Test Item Value Reference Range Interpretation Comments PHOSPHORUS (BEAKER) (test code = 3.5 mg/dL 2.3-4.7 604) Printed Circuit Boards Inspector ID - ALVINA MCOMPREHENSIVE METABOLIC [id number] 07:56:26 Test Item Value Reference Range Interpretation [...] not appl icable for dialysis patien ts Printed Circuit Boards Inspector ID - ALVINA MCBC W/PLT COUNT & AUTO [id number] 06:42:48 Test Item Value Reference Range Interpretation [...] PERCENT (BEAKER) (test code = 2801) Urinalysis w/Qajqjpsxhqi9398-22-51 01:12:24 Test Item Value Reference Range Interpretation Comments Color, UA (test code Yellow = 5778-6) Clarity, UA (test Clear code = 5767-9) Specific [place], UA 1.017 1.001-1.035 (test code = 5811-5) pH, UA (test code = 6.0 5.0-8.0 5803-2) Protein, UA (test Negative Negative code = 21412-6) Glucose, UA (test Negative Negative code = 365) Ketones, UA (test Trace Negative A code = 2514-8) Bilirubin, UA (test Negative Negative code = 69207-5) Blood, UA (test code Negative Negative = 01008-3) Nitrite, UA (test Negative Negative code = 5802-4) Leukocytes, UA (test Negative Negative code = 5799-2) Urobilinogen, UA 3.0 mg/dL 0.2-1.0 H (test code = 48846-2) RBC, UA (test code = 1 See_Comment [Autom ated 07440-8) message] The system which generated this result [...] Bacteria, UA (test None Seen code = 51409-7) Mucus (test code = Few 8247-9) Crystals, Urine (test Rare code = 74384-9) Specimen Source (test code = 2795) IDALIA (test code = IDALIA) Printed Circuit Boards Inspector ID - [auto]Printed Circuit Boards Inspector ID - tech Lab Interpretation Abnormal (test code = 95281-9) [facility]/[id number] 01:12:24 Test Item Value Reference Range Interpretation Comments Color, UA (test code Yellow = 5778-6) Clarity, UA (test Clear code = 5767-9) Specific [place], UA 1.017 1.001-1.035 (test code = 5811-5) pH, UA (test code = 6.0 5.0-8.0 5803-2) Protein, UA (test Negative Negative code = 20322-0) Glucose, UA (test Negative Negative code = 365) Ketones, UA (test Trace Negative A code = 2514-8) Bilirubin, UA (test Negative Negative code = 88070-9) Blood, UA (test code Negative Negative = 46373-2) Nitrite, UA (test Negative Negative code = 5802-4) Leukocytes, UA (test Negative Negative code = 5799-2) Urobilinogen, UA 3.0 mg/dL 0.2-1.0 H (test code = 99020-3) RBC, UA (test code = 1 See_Comment [Autom ated 78044-3) message] The system which generated this result [...] Bacteria, UA (test None Seen code = 98224-0) Mucus (test code = Few 8247-9) Crystals, Urine (test Rare code = 23873-9) Specimen Source (test code = 2795) IDALIA (test code = IDALIA) Printed Circuit Boards Inspector ID - [auto]Printed Circuit Boards Inspector ID - tech Lab Interpretation Abnormal (test code = 83680-9) [facility]/[id number] 01:12:24 Test Item Value Reference Range Interpretation Comments Color, UA (test code Yellow = 5778-6) Clarity, UA (test Clear code = 5767-9) Specific [place], UA 1.017 1.001-1.035 (test code = 5811-5) pH, UA (test code = 6.0 5.0-8.0 5803-2) Protein, UA (test Negative Negative code = 47285-5) Glucose, UA (test Negative Negative code = 365) Ketones, UA (test Trace Negative A code = 2514-8) Bilirubin, UA (test Negative Negative code = 47383-1) Blood, UA (test code Negative Negative = 48136-7) Nitrite, UA (test Negative Negative code = 5802-4) Leukocytes, UA (test Negative Negative code = 5799-2) Urobilinogen, UA 3.0 mg/dL 0.2-1.0 H (test code = 19630-4) RBC, UA (test code = 1 See_Comment [Autom ated 62292-0) message] The system which generated this result [...] Bacteria, UA (test None Seen code = 03536-8) Mucus (test code = Few 8247-9) Crystals, Urine (test Rare code = 00717-4) Specimen Source (test code = 2795) IDALIA (test code = IDALIA) Printed Circuit Boards Inspector ID - [auto]Printed Circuit Boards Inspector ID - tech Lab Interpretation Abnormal (test code = 86212-1) [facility] CenterURINAL[facility]IS W/ [id number] 01:12:24 Test Item Value Reference Range Interpretation [...] = 1521) SOURCE(BEAKER) (test code = 2795) Printed Circuit Boards Inspector ID - [auto]Printed Circuit Boards Inspector ID - techPROTHROMBIN TIME/[id number] 11:13:08 Test Item Value Reference Range Interpretation Comments PROTIME (BEAKER) 16.0 seconds 11.9-14.2 H (test code = 759) INR (BEAKER) (test 1.37 See_Comment [Automat ed message] code = 370) The system [employer] generated this result transmitted ref erence range: <=5.90. The reference range was not used to int erpret this result as normal/abnormal . RECOMMENDED COUMADIN/WARFARIN INR THERAPY RANGESSTANDARD DOSE: 2.0 - 3.0 Includes: PROPHYLAXIS for venous thrombosis, systemic embolization; TREATMENT for venous thrombosis and/or pulmonary embolus.HIGH RISK: Target INR is 2.5-3.5 for patients with mechanical heart valves.HEPATIC FUNCTION [id number] 08:23:09 Test Item Value Reference Range Interpretation [...] Specimen slightly (test code = 347) hemolyzed Printed Circuit Boards Inspector ID - ALVINA [id number] 08:20:14 Test Item Value Reference Range Interpretation Comments PHOSPHORUS (BEAKER) 4.9 mg/dL 2.3-4.7 H Specimen slightly (test code = 604) hemolyzed Printed Circuit Boards Inspector ID - ALVINA [id number] 08:20:14 Test Item Value Reference Range Interpretation Comments MAGNESIUM (BEAKER) 1.5 mg/dL 1.6-2.6 L Specimen slightly (test code = 627) hemolyzed Printed Circuit Boards Inspector ID - ALVINA MLACTIC ACID, [id number] 07:47:42 Test Item Value Reference Range Interpretation Comments LACTATE BLOOD VENOUS 1.04 mmol/L 0.50-2.20 Specime n slightly (2) (BEAKER) (test hemolyzed code = 7746) Printed Circuit Boards Inspector ID - ALVINA MBASIC METABOLIC [id number] 07:28:57 Test Item Value Reference Range Interpretation [...] not appl icable for dialysis patien ts Printed Circuit Boards Inspector ID - ALVINA MPT/[id number] 07:01:08 Test Item Value Reference Range Interpretation [...] mechanical heart valves.CBC W/PLT COUNT & AUTO [id number] 06:52:58 Test Item Value Reference Range Interpretation [...] Not Detected, (test code = Negative, See 31508-3) external report for linked test SARS-COV-2 [facility] (test code = 73158-7) IDALIA (test code = Negative result for [...] of the Act. Fact Sheet for Healthcare Providers:https://www.[employer]/sites/default/f anup/product/documents/F act_Sheet_HC_Providers_L dob_QZWR-QhR-9.pdf Fact Sheet for Healthcare Patients:https://www.Ready del.com/sites/default/fi les/product/documents/Fa ct_Sheet_Patients_Lyra_S ARS-CoV-2.pdf Performing Laboratory:[facility] [place] [address] [facility] ([facility])2021-12-25 10:50:35 Test Item Value Reference Range Interpretation Comments SARS-COV2/RT-PCR (test Negative Not Detected, Negative, code = 5034933) See external report for linked test SARS-COV-[address] [facility] SELENA (test code = 0083898) Negative result for this test determines that [...] of the Act.Fact Sheet for Healthcare Prov iders:https://www.[employer]/sites/default/files/product/documents/Fact_Sheet_HC _Cfzpmrbep_Jzmg_LCLD-JoS-3.pdfFact Sheet for Healthcare Patients:https://www.[employer]/sites/default/files/product/docume nts/Dibz_Tjxdf_Qgtyjmii_Rupc_KTKV-VeW-3.pdfPerforming Laboratory:[facility], [place] [address]CDTZI METABOLIC PANEL 2021-12-25 05:39:15 Test Item Value [...] not appl icable for dialysis patien ts Printed Circuit Boards Inspector ID - PIAYA LCBC W/PLT COUNT & AUTO [id number] 04:50:53 Test Item Value Reference Range Interpretation [...] (BEAKER) (test code = 2801) BASIC METABOLIC [id number] 04:18:37 Test Item Value Reference Range Interpretation [...] not appl icable for dialysis patien ts Printed Circuit Boards Inspector ID - ALVINA MCBC W/PLT COUNT & AUTO [id number] 04:02:11 Test Item Value Reference Range Interpretation [...] (BEAKER) (test code = 2801) BASIC METABOLIC [id number] 03:48:40 Test Item Value Reference Range Interpretation [...] not appl icable for dialysis patien ts Printed Circuit Boards Inspector ID - BSCBC W/PLT COUNT & AUTO [id number] 03:25:33 Test Item Value Reference Range Interpretation [...] (BEAKER) (test code = 2801) COMPLEMENT COMPONENT [id number] 05:12:57 Test Item Value Reference Range Interpretation Comments C3 COMPLEMENT (BEAKER) (test code = 58 mg/dL 82-193 L 393) Printed Circuit Boards Inspector ID - PIAYA LCOMPLEMENT COMPONENT [id number] 05:12:56 Test Item Value Reference Range Interpretation Comments C4 COMPLEMENT (BEAKER) (test code = 5 mg/dL 15-57 L 394) Printed Circuit Boards Inspector ID - PIAYA LBASIC METABOLIC [id number] 04:43:01 Test Item Value Reference Range Interpretation [...] not appl icable for dialysis patien ts Printed Circuit Boards Inspector ID - ALVINA M-CBC W/PLT COUNT & AUTO [id number] 04:23:52 Test Item Value Reference Range Interpretation [...] (BEAKER) (test code = 2801) BASIC METABOLIC [id number] 06:45:19 Test Item Value Reference Range Interpretation [...] not appl icable for dialysis patien ts Printed Circuit Boards Inspector ID - PIAYA LCBC W/PLT COUNT & AUTO [id number] 06:29:46 Test Item Value Reference Range Interpretation [...] PERCENT (BEAKER) (test code = 2801) CT, [id number] 15:01:00Unlisted Reason for Exam - Click Yes and Enter Reason Below->Nointraabdominal abscessesIs this for enterography?->NoWill this procedure require oral contrast?->Yes [facility] : 2000 [...] [place] MDReportVerified Date/Time: 12/20/2021 15:01:52 Reading Location: [facility] B1 C013X Ortho Consult Reading Room Jelly ctronically signed by: NEVIN HADLEY M.D. on 12/20/2021 03:01 PMBASIC METABOLIC [id number] 06:08:38 Test Item Value Reference Range Interpretation [...] not appl icable for dialysis patien ts Printed Circuit Boards Inspector ID - BISI [id number] 06:08:38 Test Item Value Reference Range Interpretation Comments MAGNESIUM (BEAKER) (test code = 1.7 mg/dL 1.6-2.6 627) Printed Circuit Boards Inspector ID - BISI GCBC W/PLT COUNT & AUTO [id number] 05:55:13 Test Item Value Reference Range Interpretation [...] 0-1 PERCENT (BEAKER) (test code = 2801) [id number] 05:57:20 Test Item Value Reference Range Interpretation Comments MAGNESIUM (BEAKER) (test code = 1.8 mg/dL 1.6-2.6 627) Printed Circuit Boards Inspector ID - PIAYA LBASIC METABOLIC [id number] 05:57:19 Test Item Value Reference Range Interpretation [...] not appl icable for dialysis patien ts Printed Circuit Boards Inspector ID - PIAYA LCBC W/PLT COUNT & AUTO [id number] 05:05:06 Test Item Value Reference Range Interpretation [...] 0-1 PERCENT (BEAKER) (test code = 2801) [id number] 05:14:32 Test Item Value Reference Range Interpretation Comments MAGNESIUM (BEAKER) (test code = 1.6 mg/dL 1.6-2.6 627) Printed Circuit Boards Inspector ID - DBBASIC METABOLIC [id number] 05:14:31 Test Item Value Reference Range Interpretation [...] not appl icable for dialysis patien ts Printed Circuit Boards Inspector ID - DBCBC W/PLT COUNT & AUTO [id number] 04:29:19 Test Item Value Reference Range Interpretation [...] PERCENT (BEAKER) (test code = 2801) SARS-COV2/RT-PCR ([facility])2021-12-18 02:02:45 Test Item Value Reference Range Interpretation Comments SARS-COV2/RT-PCR (test Negative Not Detected, Negative, code = 9949982) See external report for linked test SARS-COV-[address] [facility] SELENA (test code = 0765349) Negative result for this test determines that [...] of the Act.Fact Sheet for Healthcare Prov iders:https://www.quidel.com/sites/default/files/product/documents/Fact_Sheet_HC _Uqsunpjei_Ocac_GWXR-WpX-7.pdfFact Sheet for Healthcare Patients:https://www.[employer]/sites/default/files/product/docume nts/Bgur_Uqpuv_Tifqaujg_Qezs_UKXU-BqQ-6.pdfPerforming Laboratory:[facility], [place] [address]YEQRBOTA KINASE (CK) 2021-12-17 07:03:15 Test Item Value Reference Range Interpretation Comments CREATINE KINASE TOTAL (BEAKER) (test < U/L 29-200 L code = 380) Printed Circuit Boards Inspector ID - BISI GBASIC METABOLIC [id number] 06:48:47 Test Item Value Reference Range Interpretation [...] not appl icable for dialysis patien ts Printed Circuit Boards Inspector ID - BISI [id number] 06:48:47 Test Item Value Reference Range Interpretation Comments MAGNESIUM (BEAKER) (test code = 1.7 mg/dL 1.6-2.6 627) Printed Circuit Boards Inspector ID - BISI GCBC W/PLT COUNT & AUTO [id number] 06:18:24 Test Item Value Reference Range Interpretation [...] (BEAKER) (test code = 2801) HEPATIC FUNCTION [id number] 05:37:52 Test Item Value Reference Range Interpretation [...] (test code = 22 U/L 6-55 347) Printed Circuit Boards Inspector ID - ALVINA MBASIC METABOLIC [id number] 05:37:51 Test Item Value Reference Range Interpretation [...] not appl icable for dialysis patien ts Printed Circuit Boards Inspector ID - ALVINA [id number] 05:37:51 Test Item Value Reference Range Interpretation Comments MAGNESIUM (BEAKER) (test code = 1.8 mg/dL 1.6-2.6 627) Printed Circuit Boards Inspector ID - ALVINA MCBC W/PLT COUNT & AUTO [id number] 05:19:35 Test Item Value Reference Range Interpretation [...] code = 2801) WOUND CULTURE + GRAM [id number] 15:11:36 Test Item Value Reference Range Interpretation [...] ed message] code = 146) The system [facility] generated this result transmitted ref erence range: Suscepti ble 0-0.125 , Dose Dependent Susce ptible <0 or >.125. Th e reference range was not used to int erpret this result as normal/abnormal . Micafungin (test See_Comment S [Automated message] code = 148) The system [facility] generated this result transmitted ref erence range: Suscepti ble 0-0.25 , Non-susceptible <0 or >.25 , Resistan t . The reference r colby was not used to interpret this result as normal/abnor mal. Posaconazole (test See_Comment [Automat ed message] code = 152) The system [facility] generated this result transmitted ref erence range: Suscepti ble >0-0 , No Interpretations Established <=0 or >0 . The reference range was not used to interpret this result as normal/abnor mal. Voriconazole (test See_Comment S [Automat ed message] code = 153) The system [facility] generated this result transmitted ref erence range: [...] d message] code = 143) The system orangutrans generated this result transmitted ref erence range: Suscepti ble 0-0 , Dose Depe ndent Susceptible <0 or >0 , Resi. The ref erence range was not u sed to interpret this result as normal/abnor mal. Itraconazole (test See_Comment [Automat ed message] code = 146) The system EzFlop - A First of Its Kind Flip Flop generated this result transmitted ref erence range: Suscepti ble 0-0.125 , Dose Dependent Susce ptible <0 or >.125. Th e reference range was not used to int erpret this result as normal/abnormal . Micafungin (test See_Comment S [Automated message] code = 148) The system EzFl[employer] - A First [employer] Its Kind Flip Flop generated this result transmitted ref erence range: Suscepti ble 0-0.06 , Non-susceptible <0 or >.06 , Resistan t . The reference r colby was not used to interpret this result as normal/abnor mal. Posaconazole (test See_Comment [Automat ed message] code = 1522) The system EzFlop - A First [employer] Its Kind Flip Flop generated this result transmitted ref erence range: Suscepti ble >0-0 , No Interpretations Established <=0 or >0 . The reference range was not used to interpret this result as normal/abnor mal. Voriconazole (test See_Comment [Automat ed message] code = 153) The system EzFlop - A First [employer] Its Kind Flip Flop generated this result transmitted ref erence range: Suscepti ble >0-0 , Dose Dep endent Susceptible <=0 or >0 , No. The refer ence range was not u sed to interpret this result as normal/abnor mal. GRAM STAIN RESULT 4+ WBCs (BEAKER) (test code = 1123) GRAM STAIN RESULT <1+ budding (BEAKER) (test code yeast = 806798) [id number] 13:41:55 Test Item Value Reference Range Interpretation Comments MAGNESIUM (BEAKER) 1.6 mg/dL 1.6-2.6 Specimen slightly (test code = 627) hemolyzed Printed Circuit Boards Inspector ID - BSBASIC METABOLIC [id number] 13:41:55 Test Item Value Reference Range Interpretation [...] not appl icable for dialysis patien ts Printed Circuit Boards Inspector ID - BSCBC (HEMOGRAM ONLY)2021-12-15 12:10:46 Test [...] = 413) RAD, CHEST, 1 VIEW, NON [id number] 11:09:00Reason for exam:->PICC tip location verification.Should this be performed at the bedside?->Yes [facility] : 2000 Sex: MFINAL REPORT CLINICAL HISTORY:PICC tip location verification. TECHNIQUE: 1 view of thechest. COMPARISON: 09/28/2021 IMPRESSION: The tip of the right PICC line is at the cavoatrial junction. There are no focal infiltrates or effusions. The cardiomediastinal silhouette is within normal limits for size. Signed: Darcie Williamson [facility] SYSTEM[facility]ort Verified Date/Time: 12/15/2021 11:09:16 Reading Location: [facility] Radiology Reading Room [id number] 07:04:44 Test Item Value Reference Range Interpretation Comments ЕКАТЕРИНА (GENEVA) (test code = 1.8 mg/dL 1.6-2.6 627) Printed Circuit Boards Inspector ID - SHREE WCT, [id number] 13:51:00Unlisted Reason for Exam - Click Yes and Enter Reason Below->NoIs this for enterography?->NoWill this procedure require oral contrast?->No [facility] : 2000 [...] prior examination.3.Mild diffuse hepatic steatosis. Signed: Robert [facility]eroaeprusk [facility] Verified Date/Time: 12/14/2021 13:51:31 Reading Location: [facility] Diagnostic Imaging Reading Room - [place] [address] 1129 ANTI-DNA [id number] 12:28:11 Test Item Value Reference Range Interpretation Comments ANTI-DNA TITER (BEAKER) (test code = :80 1553) DOUBLE-STRANDED DNA (DSDNA) [id number] 12:27:59 Test Item Value Reference Range Interpretation Comments ANTI-DNA DS (BEAKER) (test code = Positive Negative 1055) CBC W/PLT COUNT & AUTO [id number] 06:03:24 Test Item Value Reference Range Interpretation [...] code = 2801) CT, DRAINAGE W/ CATH [id number] 12:21:00Reason for exam:->undrained fluid collections in abdomen [facility] : 2000 Sex: MFINAL REPORT CT guided drainage catheter placement, 12/11/2021 Clinical History: Right-sided abdominal fluid collection. Modality: CT. Compress Engineer: Shira. Media Liaison Officer: None. Sedation: Versed 1 mg and fentanyl [...] was achieved with 1% lidocaine, a 5 Malaysian one-step catheter was advanced into the fluid collection under CT guidance. Aspiration was attempted through this catheter, but only a small amount of fluid could be obtained. After a small skin incision was made, a guidewire was advanced into the fluidcollection. Subsequently, a soft tissue tract was created with 8 Malaysian dilator. After the tract wasdilated, an 8 Malaysian all-purpose drainage catheter was placed into the [...] Oliva Verified Date/Time: 12/13/2021 12:21:52 Reading Location: [facility] Reading Room BASI METABOLIC [id number] 08:39:36 Test Item Value Reference Range Interpretation [...] S NOT APPLICABLE FOR DIALYSIS PATIEN TS. Printed Circuit Boards Inspector ID - [id number] 08:39:36 Test Item Value Reference Range Interpretation Comments MAGNESIUM (BEAKER) (test code = 1.7 mg/dL 1.6-2.6 627) Printed Circuit Boards Inspector ID - BSPOC-Glucose [id number] 07:42:54 Test Item Value Reference Range Interpretation Comments POC-Glucose Meter (test 128 mg/dL 70-110 H : TE STED AT [facility] code = 1538) [address] [facility], 770 30: Printed Circuit Boards Inspector/Techni dakota ID = [id number] for AMYQUEEN Lab Interpretation (test Abnormal code = 94604-9) [facility]PO[facility] [id number] 07:42:54 Test Item Value Reference Range Interpretation Comments POC-GLUCOSE METER 128 mg/dL 70-110 H : TESTED A T [facility] 6720 (BEAKER) (test code = [place] [facility], 1538) [address]: Printed Circuit Boards Inspector/Techni dakota ID = [id number] for QUEEN HONEYCUTT BLOOD [id number] 15:01:19 Test Item Value Reference Range Interpretation Comments CULTURE (BEAKER) (test No growth in 5 days code = 1095) BLOOD [id number] 15:01:19 Test Item Value Reference Range Interpretation [...] code C. di fficile GDH Toxin: = 9487671) NegativeC. diff icile GDH Antigen: Negati veKit Lot: [id number] Date : 08/22/2023 c [id number] 12:27:53Scan ResultComment: C. difficile GDH Toxin: NegativeC. difficile GDH Antigen: Negative Kit Lot: [id number] Date: 08/22/2023[facility] [id number] 12:27:53Scan ResultComment: C. difficile GDH Toxin: NegativeC. difficile GDH Antigen: Negative Kit Lot: [id number] Date: 08/22/2023[facility] [id number] 12:27:53Scan ResultComment: C. difficile GDH Toxin: NegativeC. difficile GDH Antigen: Negative Kit Lot: [id number] Date: 08/22/2023[facility] [id number] 12:27:53Scan ResultComment: C. difficile GDH Toxin: NegativeC. difficile GDH Antigen: Negative Kit Lot: [id number] Date: 08/22/2023[facility] [id number] 12:27:53Scan ResultComment: C. difficile GDH Toxin: NegativeC. difficile GDH Antigen: Negative Kit Lot: [id number] Date: 08/22/2023[facility] [id number] 12:27:53Scan ResultComment: C. difficile GDH Toxin: NegativeC. difficile GDH Antigen: Negative Kit Lot: [id number] Date: 08/22/2023[facility] [id number] 12:27:53Scan Encklc8612/12/2021 12:27 PM CDTCHI [facility] HospitalBASIC [facility]ABOLIC [id number] 07:18:15 Test Item Value Reference Range Interpretation [...] S NOT APPLICABLE FOR DIALYSIS PATIEN TS. Printed Circuit Boards Inspector ID - SHREE [id number] 07:18:14 Test Item Value Reference Range Interpretation Comments MAGNESIUM (BEAKER) 1.7 mg/dL 1.6-2.6 Specimen slightly (test code = 627) hemolyzed Printed Circuit Boards Inspector ID - SHREE WCBC W/PLT COUNT & AUTO [id number] 06:48:11 Test Item Value Reference Range Interpretation [...] PERCENT (BEAKER) (test code = 2801) SARS-COV2/RT-PCR ([facility])2021-12-11 08:51:50 Test Item Value Reference Range Interpretation Comments SARS-COV2/RT-PCR (test Negative Not Detected, Negative, code = 5000473) See external report for linked test SARS-COV-2 PERFORMING LAB [facility] (test code = 6969438) Negative result for this test determines that [...] of the Act.Fact Sheet for Healthcare Prov iders:https://www.[employer]/sites/default/files/product/documents/Fact_Sheet_HC _Ifbnihlyl_Awwy_WGDQ-KvI-5.pdfFact Sheet for Healthcare Patients:https://www.[employer]/sites/default/files/product/docume nts/Vvbr_Yjrrb_Ifzrhmlk_Qztl_YMMH-HbL-3.pdfPerforming Laboratory:[place] [address], [place] [address]QNPKA METABOLIC PANEL 2021-12-11 07:32:42 Test Item Value [...] S NOT APPLICABLE FOR DIALYSIS PATIEN TS. Printed Circuit Boards Inspector ID - PIJOVI [id number] 07:32:42 Test Item Value Reference Range Interpretation Comments MAGNESIUM (BECAMILO) (test code = 1.7 mg/dL 1.6-2.6 627) Printed Circuit Boards Inspector ID - PIJOVI LCT, [id number] 13:47:00Unlisted Reason for Exam - Click Yes and Enter Reason Below->NoIs this for enterography?->NoWill this procedure require oral contrast?->No [facility] : 2000 [...] Fatty infiltrationof the liver. Signed: Andrés Holloway [facility] Verified Date/Time: 12/10/2021 13:47:19 [id number] 08:22:12 Test Item Value Reference Range Interpretation Comments MAGNESIUM (BEAKER) (test code = 1.5 mg/dL 1.6-2.6 L 627) Printed Circuit Boards Inspector ID - SHREE WBASIC METABOLIC [id number] 08:22:11 Test Item Value Reference Range Interpretation [...] S NOT APPLICABLE FOR DIALYSIS PATIEN TS. Printed Circuit Boards Inspector ID - SHREE WCBC W/PLT COUNT & AUTO [id number] 05:53:31 Test Item Value Reference Range Interpretation [...] 0-1 PERCENT (BEAKER) (test code = 2801) [id number] 05:50:23 Test Item Value Reference Range Interpretation Comments MAGNESIUM (BEAKER) (test code = 1.8 mg/dL 1.6-2.6 627) Printed Circuit Boards Inspector ID - BISI GBASIC METABOLIC [id number] 05:50:22 Test Item Value Reference Range Interpretation [...] S NOT APPLICABLE FOR DIALYSIS PATIEN TS. Printed Circuit Boards Inspector ID - BISI GCOMPLEMENT COMPONENT [id number] 05:47:38 Test Item Value Reference Range Interpretation Comments C3 COMPLEMENT (BEAKER) (test code = 34 mg/dL 82-193 L 393) Printed Circuit Boards Inspector ID - MARIBEL LCOMPLEMENT COMPONENT [id number] 05:47:37 Test Item Value Reference Range Interpretation Comments C4 COMPLEMENT (LEOAKER) (test code = 6 mg/dL 15-57 L 394) Printed Circuit Boards Inspector ID - MARIBEL LPROTHROMBIN TIME/[id number] 05:32:34 Test Item Value Reference Range Interpretation Comments PROTIME (BEAKER) 16.8 seconds 11.9-14.2 H (test code = 759) INR (BEAKER) (test 1.39 See_Comment [Automat ed message] code = 370) The system FiPath h generated this result transmitted ref erence range: <=5.90. The reference range was not used to int erpret this result as normal/abnormal . RECOMMENDED COUMADIN/WARFARIN INR THERAPY RANGESSTANDARD DOSE: 2.0 - 3.0 Includes: PROPHYLAXIS for venous thrombosis, systemic embolization; TREATMENT for venous thrombosis and/or pulmonary embolus.HIGH RISK: Target INR is 2.5-3.5 for patients with mechanical heart valves.Urinalysis w/Qnvbmasqbej2140-79-04 00:48:22 Test Item Value Reference Range Interpretation Comments Color, UA (test code Yellow = 5778-6) Clarity, UA (test Clear code = 5767-9) Specific [place], UA 1.023 1.001-1.035 (test code = 5811-5) pH, UA (test code = 6.5 5.0-8.0 5803-2) Protein, UA (test Negative Negative code = 38687-0) Glucose, UA (test 50 mg/dL Negative A code = 365) Ketones, UA (test Trace Negative A code = 2514-8) Bilirubin, UA (test Negative Negative code = 44941-1) Blood, UA (test code Negative Negative = 18290-5) Nitrite, UA (test Negative Negative code = 5802-4) Leukocytes, UA (test Trace Negative A code = 5799-2) Urobilinogen, UA 0.2 mg/dL 0.2-1.0 (test code = 06108-1) RBC, UA (test code = 2 See_Comment [Autom ated 61147-2) message] The system which generated this result [...] . Bacteria, UA (test Moderate code = 69287-8) Mucus (test code = Occasional 8247-9) Hyaline Casts, UA 4 See_Comment [Automate d (test code = 01884-0) messag e] The system which generated this result transmitted reference range : /LPF. The reference range was not used to interpret this result as normal/abnormal . Crystals, Urine (test None Seen code = 30995-4) Specimen Source (test code = 2795) IDALIA (test code = IDALIA) Printed Circuit Boards Inspector ID - [auto]Printed Circuit Boards Inspector ID - tech Lab Interpretation Abnormal (test code = 31421-6) [facility] CenterURIN[facility]YSIS W/ [id number] 00:48:22 Test Item Value Reference Range Interpretation [...] = 1521) SOURCE(BEAKER) (test code = 2795) Printed Circuit Boards Inspector ID - [auto]Printed Circuit Boards Inspector ID - techProtein, random [id number] 23:18:26 Test Item Value Reference Range Interpretation Comments Protein, Urine (test code 21 mg/dL 0-14 H = 2888-6) IDALIA (test code = IDALIA) Printed Circuit Boards Inspector ID - PIAYA L Lab Interpretation (test Abnormal code = 15832-4) [facility] CenterProtein, random [id number] 23:18:26 Test Item Value Reference Range Interpretation Comments Protein, Urine (test code 21 mg/dL 0-14 H = 2888-6) IDALIA (test code = IDALIA) Printed Circuit Boards Inspector ID - PIAYA L Lab Interpretation (test Abnormal code = 92512-4) [facility] CenterProtein, random [id number] 23:18:26 Test Item Value Reference Range Interpretation Comments Protein, Urine (test code 21 mg/dL 0-14 H = 2888-6) IDALIA (test code = IDALIA) Printed Circuit Boards Inspector ID - PIAYA L Lab Interpretation (test Abnormal code = 88934-2) [facility] CenterProtein, random [id number] 23:18:26 Test Item Value Reference Range Interpretation Comments Protein, Urine (test code 21 mg/dL 0-14 H = 2888-6) IDALIA (test code = IDALIA) Printed Circuit Boards Inspector ID - PIAYA L Lab Interpretation (test Abnormal code = 68276-4) [facility] CenterPROTEIN, RANDOM [id number] 23:18:26 Test Item Value Reference Range Interpretation Comments PROTEIN, URINE (BEAKER) (test code = 21 mg/dL 0-14 H 1569) Printed Circuit Boards Inspector ID - PIAYA LCreatinine, random [id number] 23:18:25 Test Item Value Reference Range Interpretation Comments Creatinine, Ur 99.7 mg/dL (test code = 2161-8) IDALIA (test code = Reference Range: No IDALIA) NormalsOperator ID - PIAYA L [facility] CenterCreatinine, random [id number] 23:18:25 Test Item Value Reference Range Interpretation Comments Creatinine, Ur 99.7 mg/dL (test code = 2161-8) IDALIA (test code = Reference Range: No IDALIA) NormalsOperator ID - PIAYA L [facility] CenterCreat[facility], random [id number] 23:18:25 Test Item Value Reference Range Interpretation Comments Creatinine, Ur 99.7 mg/dL (test code = 2161-8) IDALIA (test code = Reference Range: No IDALIA) NormalsOperator ID - MARIBEL Inman [facility] CenterCreatinine, random [id number] 23:18:25 Test Item Value Reference Range Interpretation Comments Creatinine, Ur 99.7 mg/dL (test code = 2161-8) IDALIA (test code = Reference Range: No IDALIA) NormalsOperator ID - MARIBEL Inman [facility] CenterCREBETHESDA HOSPITALINE, RANDOM [id number] 23:18:25 Test Item Value Reference Range Interpretation Comments CREATININE URINE (BEAKER) (test 99.7 mg/dL code = 375) Reference Range: No NormalsOperator ID - MARIBEL LPOCT-GLUCOSE [id number] 10:32:21 Test Item Value Reference Range Interpretation Comments POC-GLUCOSE METER 110 mg/dL 70-110 : TESTED A T [facility] 6720 (BEAKER) (test code = [place] [facility], 1538) [address]: Printed Circuit Boards Inspector/Techni dakota ID = [id number] for QUEEN HONEYCUTT HEMOGLOBIN [id number] 10:26:45 Test Item Value Reference Range Interpretation [...] 5.7- 6.4% indicates increased risk for diabetes (prediabetes)."Printed Circuit Boards Inspector ID - ADM HEPATIC FUNCTION [id number] 10:19:31 Test Item Value Reference Range Interpretation [...] Specimen slightly (test code = 347) hemolyzed Printed Circuit Boards Inspector ID - PIJOVI LBASIC METABOLIC [id number] 10:19:30 Test Item Value Reference Range Interpretation [...] S NOT APPLICABLE FOR DIALYSIS PATIEN TS. Printed Circuit Boards Inspector ID - PIJOVI LLIPID [id number] 10:19:30 Test Item Value Reference Range Interpretation [...] Borderline 130-159 High 160-189 Very High >=190 Printed Circuit Boards Inspector ID - MARIBEL [id number] 10:19:29 Test Item Value Reference Range Interpretation Comments MAGNESIUM (BEAKER) 1.5 mg/dL 1.6-2.6 L Specimen slightly (test code = 627) hemolyzed Printed Circuit Boards Inspector ID - MARIBEL [id number] 10:19:29 Test Item Value Reference Range Interpretation Comments PHOSPHORUS (BEAKER) 3.9 mg/dL 2.3-4.7 Specimen slightly (test code = 604) hemolyzed Printed Circuit Boards Inspector ID - MARIBEL LCBC W/PLT COUNT & AUTO [id number] 06:19:38 Test Item Value Reference Range Interpretation [...] (BEAKER) (test code = 2801) COMPREHENSIVE METABOLIC [id number] 14:20:15 Test Item Value Reference Range Interpretation [...] S NOT APPLICABLE FOR DIALYSIS PATIEN TS. Printed Circuit Boards Inspector ID - MAILEJOVI [id number] 14:20:15 Test Item Value Reference Range Interpretation Comments LIPASE (BEAKER) (test code = 749) 8 U/L 8-78 Printed Circuit Boards Inspector ID - MAILEJOVI NEGRONACTIC ACID, [id number] 14:16:12 Test Item Value Reference Range Interpretation Comments LACTATE BLOOD VENOUS 1.09 mmol/L 0.50-2.20 Specime n slightly (2) (BEAKER) (test hemolyzed code = 3602) Printed Circuit Boards Inspector ID - MARIBEL [id number] 14:09:56 Test Item Value Reference Range Interpretation Comments PARTIAL THROMBOPLASTIN TIME 28.8 seconds 22.5-36.0 (BEAKER) (test code = 760) PROTHROMBIN TIME/[id number] 14:09:14 Test Item Value Reference Range Interpretation Comments PROTIME (BEAKER) 16.6 seconds 11.9-14.2 H (test code = 759) INR (BEAKER) (test 1.37 See_Comment [Automat ed message] code = 370) The system [employer] - A First [employer] Its Kind Flip Flop generated this result transmitted ref erence range: <=5.90. The reference range was not used to int erpret this result as normal/abnormal . RECOMMENDED COUMADIN/WARFARIN INR THERAPY RANGESSTANDARD DOSE: 2.0 - 3.0 Includes: PROPHYLAXIS for venous thrombosis, systemic embolization; TREATMENT for venous thrombosis and/or pulmonary embolus.HIGH RISK: Target INR is 2.5-3.5 for patients with mechanical heart valves.CBC W/PLT COUNT & AUTO [id number] 14:03:40 Test Item Value Reference Range Interpretation [...] PERCENT (BEAKER) (test code = 2801) POCT-GLUCOSE [id number] 13:55:45 Test Item Value Reference Range Interpretation Comments POC-GLUCOSE METER 86 mg/dL 70-110 : TESTED A T [facility] 6720 (BEAKER) (test code = [place], 1538) [address]: Printed Circuit Boards Inspector/Techni dakota ID = [id number] for Jose Hodges [employer] culture + smear (non-sputum)2021-11-16 10:41:32 Test Item Value Reference Range Interpretation Comments Result (test code = No acid-fast bacilli 6463-4) isolated in 42 days AFB Smear (test code = No acid fast bacilli 41154-1) seen [facility] CenterAF[facility] + smear (non-sputum)2021-11-16 10:41:32 Test Item Value Reference Range Interpretation Comments Result (test code = No acid-fast bacilli 6463-4) isolated in 42 days AFB Smear (test code = No acid fast bacilli 11974-9) seen [facility] CenterAF[facility] culture + smear (non-sputum)2021-11-16 10:41:32 Test Item Value Reference Range Interpretation Comments Result (test code = No acid-fast bacilli 6463-4) isolated in 42 days AFB Smear (test code = No acid fast bacilli 40837-0) seen [facility] CenterAF[facility] CULTURE + SMEAR (NON-SPUTUM)2021-11-16 10:41:32 Test Item Value Reference Range Interpretation Comments CULTURE (BEAKER) (test No acid-fast bacilli code = 1095) isolated in 42 days AFB SMEAR (BEAKER) No acid fast bacilli (test code = 994) seen Fungus culture + [id number] 17:16:53 Test Item Value Reference Range Interpretation Comments Result (test code = No fungus isolated in 6463-4) 28 days Fungus Smear (test No fungi seen code = 1406) [facility] CenterFungus culture + [id number] 17:16:53 Test Item Value Reference Range Interpretation Comments Result (test code = No fungus isolated in 6463-4) 28 days Fungus Smear (test No fungi seen code = 1406) [facility] CenterFungus culture + [id number] 17:16:53 Test Item Value Reference Range Interpretation Comments Result (test code = No fungus isolated in 6463-4) 28 days Fungus Smear (test No fungi seen code = 1406) [facility] CenterFUNGUS CULTURE + [id number] 17:16:53 Test Item Value Reference Range Interpretation Comments CULTURE (BEAKER) (test No fungus isolated in code = 1095) 28 days FUNGUS SMEAR (BEAKER) No fungi seen (test code = 1406) - CT ABDOMEN W W/O [id number] 15:32:00 [facility] 2000 Sex: M FAX: Willard Vaughn Jr [phone] [place]: St: REG Name: VANGIE OVALLE [facility] : 2000 Age/S: 21/M [address] Unit: [id number] Loc: [place] [address] Phys: Willard Crouch Jr, MD Acct: [id number] Dis Date: Status: REG CLI PHONE #: [phone] Exam Date: 10/23/2021 1445 FAX #: [phone] Reason: ABDOMINAL ABSCESSES EXAMS: CPT CODE: [id number] CT ABDOMEN W W/O CONTRAST 41917 EXAMINATION: - CT ABDOMEN W W/O CONTRAST [...] Signed Report (CONTINUED) FAX: Willard Vaughn Jr [phone] [place]: St: REG -- Name: VANGIE OVALLE [facility] : 2000 Age/S: 21/M [address] Unit: [id number] Loc: [place] [address] Phys: Willard Crouch Jr, MD Acct: [id number] Dis Date: Status: REG CLI PHONE #: [phone] Exam Date: 10/23/2021 1445 FAX #: [phone] Reason: ABDOMINAL ABSCESSES EXAMS: CPT COD E: [id number] CT ABDOMEN W W/O CONTRAST 67277 (Continued) Imaged lower chest demonstrates mild bibasilar atelectasis. No acute osseous abnormality identified. IMPRESSION: Following interval drain placements, overall quantity of air-fluid collections has partially improved. at 1532 Reported and signed by: Sabas Grey MD CC: Willard Crouch Jr Technologist: DORENE WHITTAKER, RT(R,CT); MATTY CLINTON Trnscrd Dt/Tm: 10/23/2021 (1532) [id number] Orig Print D/T: S: 10/23/2021 (1536 PAGE 2 Signed ReportPOCT-GLUCOSE [id number] 12:03:00 Test Item Value Reference Range Interpretation Comments POC-GLUCOSE METER 147 mg/dL 70-110 H : TESTED A T [facility] 6720 (BEAKER) (test code = [facility], 1538) [address]: Printed Circuit Boards Inspector/Techni dakota ID = [id number] for Francisco valles Roberto Carlos POCT-GLUCOSE [id number] 07:25:56 Test Item Value Reference Range Interpretation Comments POC-GLUCOSE METER 108 mg/dL 70-110 : TESTED A T [facility] 6720 (BEAKER) (test code = [facility], 1538) [address]: Printed Circuit Boards Inspector/Techni dakota ID = [id number] for Ob Piero walkerumwen [id number] 06:30:28 Test Item Value Reference Range Interpretation Comments PHOSPHORUS (BEAKER) (test code = 3.1 mg/dL 2.3-4.7 604) Printed Circuit Boards Inspector ID - DBHEPATIC FUNCTION [id number] 06:30:28 Test Item Value Reference Range Interpretation [...] (test code = 9 U/L 6-55 347) Printed Circuit Boards Inspector ID - DBBASIC METABOLIC [id number] 06:30:27 Test Item Value Reference Range Interpretation [...] S NOT APPLICABLE FOR DIALYSIS PATIEN TS. Printed Circuit Boards Inspector ID - [id number] 06:30:27 Test Item Value Reference Range Interpretation Comments MAGNESIUM (BEAKER) (test code = 1.6 mg/dL 1.6-2.6 627) Printed Circuit Boards Inspector ID - DBCBC W/PLT COUNT & AUTO [id number] 06:18:45 Test Item Value Reference Range Interpretation [...] PERCENT (BEAKER) (test code = 2801) POCT-GLUCOSE [id number] 22:04:31 Test Item Value Reference Range Interpretation Comments POC-GLUCOSE METER 148 mg/dL 70-110 H : TESTED A T [facility] 6720 (BEAKER) (test code = [place], 1538) [address]: Printed Circuit Boards Inspector/Techni dakota ID = [id number] for JOANN RANDOLPH POCT-GLUCOSE [id number] 17:21:06 Test Item Value Reference Range Interpretation Comments POC-GLUCOSE METER 231 mg/dL 70-110 H : TESTED A T [facility] 6720 (BEAKER) (test code = [facility], 1538) 212[address]: Printed Circuit Boards Inspector/Techni dakota ID = [id number] for ERNST FRANCOIS Anaerobic [id number] 13:55:46 Test Item Value Reference Range Interpretation Comments Result (test code = No anaerobes isolated 6463-4) [facility] [id number] 13:55:46 Test Item Value Reference Range Interpretation Comments CULTURE (BEAKER) (test No anaerobes isolated code = 1095) BASIC METABOLIC [id number] 12:01:25 Test Item Value Reference Range Interpretation [...] S NOT APPLICABLE FOR DIALYSIS PATIEN TS. Printed Circuit Boards Inspector ID - ALVINA MHEPATIC FUNCTION [id number] 12:01:25 Test Item Value Reference Range Interpretation [...] (test code = 9 U/L 6-55 347) Printed Circuit Boards Inspector ID - ALVINA MOperator ID - ALVINA [id number] 12:01:24 Test Item Value Reference Range Interpretation Comments PHOSPHORUS (BEAKER) (test code = 3.8 mg/dL 2.3-4.7 604) Printed Circuit Boards Inspector ID - ALVINA [id number] 12:01:19 Test Item Value Reference Range Interpretation Comments MAGNESIUM (BEAKER) (test code = 1.5 mg/dL 1.6-2.6 L 627) Printed Circuit Boards Inspector ID - ALVINA MPOCT-GLUCOSE [id number] 11:54:19 Test Item Value Reference Range Interpretation Comments POC-GLUCOSE METER 110 mg/dL 70-110 : TESTED A T [facility] 6720 (BEAKER) (test code = [place], 1538) [address]: Printed Circuit Boards Inspector/Techni dakota ID = [id number] for [place] LLIS, ERNST CBC W/PLT COUNT & AUTO [id number] 11:25:49 Test Item Value Reference Range Interpretation [...] PERCENT (BEAKER) (test code = 2801) POCT-GLUCOSE [id number] 09:39:11 Test Item Value Reference Range Interpretation Comments POC-GLUCOSE METER 87 mg/dL 70-110 : TESTED A Angela [facility] 6720 (BEAKER) (test code = [place], 1538) [address]: Printed Circuit Boards Inspector/Techni dakota ID = [id number] for DELMAR IYER SARS-COV2/RT-PCR ([facility])2021-10-09 04:10:06 Test Item Value Reference Range Interpretation Comments SARS-COV2/RT-PCR (test Negative Not Detected, Negative, code = 2535169) See external report for linked test SARS-COV-[address] [facility] SELENA (test code = 7494603) Negative result for this test determines that [...] of the Act.Fact Sheet for Healthcare Prov iders:https://www.Insight [employer]uru/sites/default/files/product/documents/Fact_Sheet_HC _Gtaweyrsc_Evjc_MNZI-YhE-2.pdfFact Sheet for Healthcare Patients:https://www.[employer]/sites/default/files/product/docume nts/Gheb_Dhhzu_Ntayyiye_Edgm_FIJW-DnQ-4.pdfPerforming Laboratory:[facility] [place], [place] [address]VPHP-ECIKOCO METER 2021-10-08 20:41:51 Test Item Value Reference Range Interpretation Comments POC-GLUCOSE METER 102 mg/dL 70-110 : Notified RN/MD: (BEAKER) (test code = TESTED AT [place] [address] 1538) [facility], [address]: Printed Circuit Boards Inspector/Techni dakota ID = [id number] for HEATH GRANDE POCT-GLUCOSE [id number] 17:43:36 Test Item Value Reference Range Interpretation Comments POC-GLUCOSE METER 93 mg/dL 70-110 : TESTED A T [facility] 6720 ([facility]) (test code = [facility], 1538) 94[address]: Printed Circuit Boards Inspector/Techni dakota ID = [id number] for Mercy Peña POCT-GLUCOSE [id number] 12:09:22 Test Item Value Reference Range Interpretation Comments POC-GLUCOSE METER 93 mg/dL 70-110 : [facility] (BEAKER) (test code = [facility], 1538) 533[address]: Printed Circuit Boards Inspector/Techni dakota ID = [id number] for Mercy Peña POCT-GLUCOSE [id number] 08:51:46 Test Item Value Reference Range Interpretation Comments POC-GLUCOSE METER 95 mg/dL 70-110 : TESTED A T [facility] 6720 (BEAKER) (test code = [facility], 1538) 69197: Printed Circuit Boards Inspector/Techni dakota ID = [id number] for Tequila holloway, Mercy [id number] 05:23:25 Test Item Value Reference Range Interpretation Comments PHOSPHORUS (BEAKER) (test code = 3.1 mg/dL 2.3-4.7 604) Printed Circuit Boards Inspector ID - PIAYA LHEPATIC FUNCTION [id number] 05:23:25 Test Item Value Reference Range Interpretation [...] (test code = 11 U/L 6-55 347) Printed Circuit Boards Inspector ID - MARIBEL LBASIC METABOLIC [id number] 05:23:24 Test Item Value Reference Range Interpretation [...] S NOT APPLICABLE FOR DIALYSIS PATIEN TS. Printed Circuit Boards Inspector ID - MARIBEL [id number] 05:23:24 Test Item Value Reference Range Interpretation Comments MAGNESIUM (BEAKER) (test code = 1.4 mg/dL 1.6-2.6 L 627) Printed Circuit Boards Inspector ID - MARIBEL LCBC W/PLT COUNT & AUTO [id number] 04:49:36 Test Item Value Reference Range Interpretation [...] PERCENT (BEAKER) (test code = 2801) POCT-GLUCOSE [id number] 21:40:30 Test Item Value Reference Range Interpretation Comments POC-GLUCOSE METER 135 mg/dL 70-110 H : TESTED A T [facility] 6720 (BEAKER) (test code = [facility], 1538) 45668: Printed Circuit Boards Inspector/Techni dakota ID = [id number] for MARTINE VASQUEZ POCT-GLUCOSE [id number] 16:34:48 Test Item Value Reference Range Interpretation Comments POC-GLUCOSE METER 177 mg/dL 70-110 H : TESTED A T [facility] 6720 (BEAKER) (test code = [facility], 1538) 696[address]: Printed Circuit Boards Inspector/Techni dakota ID = [id number] for FAY SPARKS BETHESDA POCT-GLUCOSE [id number] 11:09:04 Test Item Value Reference Range Interpretation Comments POC-GLUCOSE METER 156 mg/dL 70-110 H : TESTED A T [facility] 6720 (BEAKER) (test code = [facility], 1538) 83375: Printed Circuit Boards Inspector/Techni dakota ID = [id number] for FAY SPARKS BETHESDA POCT-GLUCOSE [id number] 07:50:39 Test Item Value Reference Range Interpretation Comments POC-GLUCOSE METER 69 mg/dL 70-110 L : TESTED A T [facility] 6720 (BEAKER) (test code = [facility], 1538) 47221: Printed Circuit Boards Inspector/Techni dakota ID = [id number] for QUEEN JACOBSEN HEPATIC FUNCTION [id number] 04:46:43 Test Item Value Reference Range Interpretation [...] (test code = 11 U/L 6-55 347) Printed Circuit Boards Inspector ID - ALVINA [id number] 04:46:42 Test Item Value Reference Range Interpretation Comments MAGNESIUM (BEAKER) (test code = 1.4 mg/dL 1.6-2.6 L 627) Printed Circuit Boards Inspector ID - ALVINA [id number] 04:46:42 Test Item Value Reference Range Interpretation Comments PHOSPHORUS (BEAKER) (test code = 2.6 mg/dL 2.3-4.7 604) Printed Circuit Boards Inspector ID - ALVINA MBASIC METABOLIC [id number] 04:46:41 Test Item Value Reference Range Interpretation [...] S NOT APPLICABLE FOR DIALYSIS PATIEN TS. Printed Circuit Boards Inspector ID - ALVINA MPOCT-GLUCOSE [id number] 21:32:38 Test Item Value Reference Range Interpretation Comments POC-GLUCOSE METER 175 mg/dL 70-110 H : TESTED A T [facility] 6720 (BEAKER) (test [facility] = [facility] [place] [facility], 1538) [address]: Printed Circuit Boards Inspector/Techni dakota ID = [id number] for NG O, BRIGIDA POCT-GLUCOSE [id number] 16:48:18 Test Item Value Reference Range Interpretation Comments POC-GLUCOSE METER 217 mg/dL 70-110 H : TESTED A T [facility] 6720 (BEAKER) (test code [facility], = 1538) 18068: Printed Circuit Boards Inspector/Techni dakota ID = [id number] for Bhag jewel, Rajashree POCT-GLUCOSE [id number] 12:45:58 Test Item Value Reference Range Interpretation Comments POC-GLUCOSE METER 158 mg/dL 70-110 H : TESTED A T [facility] 6720 (BEAKER) (test code [facility], = 1538) 107[address]: Printed Circuit Boards Inspector/Techni dakota ID = [id number] for Mercy Peña HEPATIC FUNCTION [id number] 06:44:11 Test Item Value Reference Range Interpretation [...] (test code = 11 U/L 6-55 347) Printed Circuit Boards Inspector ID - ALVINA [id number] 06:44:10 Test Item Value Reference Range Interpretation Comments PHOSPHORUS (BEAKER) (test code = 2.4 mg/dL 2.3-4.7 604) Printed Circuit Boards Inspector ID - ALVINA MBASIC METABOLIC [id number] 06:44:09 Test Item Value Reference Range Interpretation [...] S NOT APPLICABLE FOR DIALYSIS PATIEN TS. Printed Circuit Boards Inspector ID - ALVINA [id number] 06:44:09 Test Item Value Reference Range Interpretation Comments MAGNESIUM (BEAKER) (test code = 1.5 mg/dL 1.6-2.6 L 627) Printed Circuit Boards Inspector ID - ALVINA MCBC W/PLT COUNT & AUTO [id number] 06:09:40 Test Item Value Reference Range Interpretation [...] PERCENT (BEAKER) (test code = 2801) BLOOD [id number] 23:00:53 Test Item Value Reference Range Interpretation Comments CULTURE (BEAKER) (test No growth in 5 days code = 1095) The specimen volume collected for this blood culture was below the optimum (10 mL per bottle or 20 mL total). Use of lower volumes may adversely affect recovery and/or detection times of some organisms.BLOOD [id number] 23:00:53 Test Item Value Reference Range Interpretation Comments CULTURE (BEAKER) (test No growth in 5 days code = 1095) POCT-GLUCOSE [id number] 21:19:41 Test Item Value Reference Range Interpretation Comments POC-GLUCOSE METER 154 mg/dL 70-110 H : TESTED A T [facility] 6720 (BEAKER) (test code = [facility], 153) 86881: Printed Circuit Boards Inspector/Techni dakota ID = [id number] for Shabbir schneider (contract)[place]ake POCT-GLUCOSE [id number] 16:32:34 Test Item Value Reference Range Interpretation Comments POC-GLUCOSE METER 168 mg/dL 70-110 H : TESTED A T [facility] 6720 (BEAKER) (test code = [facility], 153) 83964: Printed Circuit Boards Inspector/Techni dakota ID = [id number] for FAY MATRINEZ, ERNST POCT-GLUCOSE [id number] 11:36:04 Test Item Value Reference Range Interpretation Comments POC-GLUCOSE METER 120 mg/dL 70-110 H : TESTED A T [facility] 6720 (BEAKER) (test code = [facility], 1538) 87547: Printed Circuit Boards Inspector/Techni dakota ID = [id number] for ERNST FRANCOIS SARS-COV2/RT-PCR ([facility])2021-10-05 10:25:30 Test Item Value Reference Range Interpretation Comments SARS-COV2/RT-PCR (test Negative Not Detected, Negative, code = 4139426) See external report for linked test SARS-COV-[address] [facility] SELENA (test code = 9469807) Negative result for this test determines that [...] of the Act.Fact Sheet for Healthcare Prov iders:https://www.WeFi.com/sites/default/files/product/documents/Fact_Sheet_HC _Qfoicgrrd_Mead_QQQC-IzP-5.pdfFact Sheet for Healthcare Patients:https://www.WeFi.com/sites/default/files/product/docume nts/Kytm_Koxea_Khsflxkc_Iljh_QNSY-HzC-8.pdfPerforming Laboratory:[facility], [place] [address]MMGI-BOXVFBL METER 2021-10-05 08:03:30 Test Item Value Reference Range Interpretation Comments POC-GLUCOSE METER 109 mg/dL 70-110 : TESTED A T [facility] 6720 (BEAKER) (test code = [place] [facility], 1538) 50[address]: Printed Circuit Boards Inspector/Techni dakota ID = [id number] for [place] LLERNST MARCUS HEPATIC FUNCTION [id number] 07:35:20 Test Item Value Reference Range Interpretation [...] (test code = 12 U/L 6-55 347) Printed Circuit Boards Inspector ID - MARIBEL LOperator ID - [id number] 06:55:48 Test Item Value Reference Range Interpretation Comments MAGNESIUM (BEAKER) (test code = 1.6 mg/dL 1.6-2.6 627) Printed Circuit Boards Inspector ID - PIJOVI [id number] 06:55:48 Test Item Value Reference Range Interpretation Comments PHOSPHORUS (BEAKER) (test code = 2.1 mg/dL 2.3-4.7 L 604) Printed Circuit Boards Inspector ID - MARIBEL LBASIC METABOLIC [id number] 06:55:47 Test Item Value Reference Range Interpretation [...] S NOT APPLICABLE FOR DIALYSIS PATIEN TS. Printed Circuit Boards Inspector ID - PIAYA LCBC W/PLT COUNT & AUTO [id number] 06:21:14 Test Item Value Reference Range Interpretation [...] PERCENT (BEAKER) (test code = 2801) POCT-GLUCOSE [id number] 21:22:59 Test Item Value Reference Range Interpretation Comments POC-GLUCOSE METER 192 mg/dL 70-110 H : TESTED A T [facility] 6720 (BEAKER) (test code = [facility], 153) 61196: Printed Circuit Boards Inspector/Techni dakota ID = [id number] for Shabbir schneider (contract) Palak franamritaalejandro POCT-GLUCOSE [id number] 17:34:11 Test Item Value Reference Range Interpretation Comments POC-GLUCOSE METER 201 mg/dL 70-110 H : TESTED A T [facility] 6720 (BEAKER) (test code = [facility], 153) 95061: Printed Circuit Boards Inspector/Techni dakota ID = [id number] for Amrita Alisha sheikha POCT-GLUCOSE [id number] 12:07:46 Test Item Value Reference Range Interpretation Comments POC-GLUCOSE METER 103 mg/dL 70-110 : TESTED A T [facility] 6720 (BEAKER) (test code = [facility], 153) 09853: Printed Circuit Boards Inspector/Techni dakota ID = [id number] for ERNST FRANCOIS SURGICALLY OBTAINED CULTURE + GRAM [id number] 09:10:42 Test Item Value Reference Range Interpretation [...] gram negative (BEAKER) (test code = rods 784522) HEPATIC FUNCTION [id number] 07:01:07 Test Item Value Reference Range Interpretation [...] (test code = 12 U/L 6-55 347) Printed Circuit Boards Inspector ID - BISI [id number] 07:01:06 Test Item Value Reference Range Interpretation Comments PHOSPHORUS (BEAKER) (test code = 2.8 mg/dL 2.3-4.7 604) Printed Circuit Boards Inspector ID - BISI GBASIC METABOLIC [id number] 07:01:05 Test Item Value Reference Range Interpretation [...] S NOT APPLICABLE FOR DIALYSIS PATIEN TS. Printed Circuit Boards Inspector ID - BISI [id number] 07:01:05 Test Item Value Reference Range Interpretation Comments MAGNESIUM (BEAKER) (test code = 1.6 mg/dL 1.6-2.6 627) Printed Circuit Boards Inspector ID - BISI GCBC W/PLT COUNT & AUTO [id number] 06:35:47 Test Item Value Reference Range Interpretation [...] PERCENT (BEAKER) (test code = 2801) POCT-GLUCOSE [id number] 16:48:07 Test Item Value Reference Range Interpretation Comments POC-GLUCOSE METER 113 mg/dL 70-110 H : TESTED A T [facility] 6720 (BEAKER) (test code = [facility], 153) 08746: Printed Circuit Boards Inspector/Techni dakota ID = [id number] for LO MARVELAMBERMASON POCT-GLUCOSE [id number] 11:46:29 Test Item Value Reference Range Interpretation Comments POC-GLUCOSE METER 116 mg/dL 70-110 H : TESTED A T [facility] 6720 (BEAKER) (test code = [facility], 153) 742[address]: Printed Circuit Boards Inspector/Techni dakota ID = [id number] for LO MARVEL, MASON ANTI-DNA [id number] 11:16:17 Test Item Value Reference Range Interpretation Comments ANTI-DNA TITER (BEAKER) (test code = :80 1553) DOUBLE-STRANDED DNA (DSDNA) [id number] 11:16:05 Test Item Value Reference Range Interpretation Comments ANTI-DNA DS (BEAKER) (test code = Positive Negative 1055) ANAEROBIC [id number] 08:30:44 Test Item Value Reference Range Interpretation Comments CULTURE (BEAKER) (test No anaerobes isolated code = 1095) HEPATIC FUNCTION [id number] 05:47:57 Test Item Value Reference Range Interpretation [...] Specimen slightly (test code = 347) hemolyzed Printed Circuit Boards Inspector ID - PIAYA LBASIC METABOLIC [id number] 05:47:56 Test Item Value Reference Range Interpretation [...] S NOT APPLICABLE FOR DIALYSIS PATIEN TS. Printed Circuit Boards Inspector ID - MARIBEL [id number] 05:47:55 Test Item Value Reference Range Interpretation Comments PHOSPHORUS (BEAKER) 4.6 mg/dL 2.3-4.7 Specimen slightly (test code = 604) hemolyzed Printed Circuit Boards Inspector ID - MARIBEL [id number] 05:47:54 Test Item Value Reference Range Interpretation Comments MAGNESIUM (BEAKER) 1.9 mg/dL 1.6-2.6 Specimen slightly (test code = 627) hemolyzed Printed Circuit Boards Inspector ID Cherelle LÓPEZ LCBC (HEMOGRAM ONLY)2021-10-03 05:23:39 Test Item Value [...] 0-0 (BEAKER) (test code = 413) POCT-GLUCOSE [id number] 05:08:33 Test Item Value Reference Range Interpretation Comments POC-GLUCOSE METER 102 mg/dL 70-110 : Notified RN/MD: (BEAKER) (test code = TESTED AT [facility] 9622 5448) [facility], [address]: Printed Circuit Boards Inspector/Techni dakota ID = [id number] for Aaron Paul BASIC METABOLIC [id number] 21:11:22 Test Item Value Reference Range Interpretation [...] S NOT APPLICABLE FOR DIALYSIS PATIEN TS. Printed Circuit Boards Inspector ID - [id number] 21:10:34 Test Item Value Reference Range Interpretation Comments PHOSPHORUS (BEAKER) (test code = 4.2 mg/dL 2.3-4.7 604) Printed Circuit Boards Inspector ID - [id number] 21:10:33 Test Item Value Reference Range Interpretation Comments MAGNESIUM (BEAKER) (test code = 1.4 mg/dL 1.6-2.6 L 627) Printed Circuit Boards Inspector ID - ADMINCBC (HEMOGRAM ONLY)2021-10-02 20:57:35 Test [...] 0-0 (BEAKER) (test code = 413) POCT-GLUCOSE [id number] 19:48:59 Test Item Value Reference Range Interpretation Comments POC-GLUCOSE METER 104 mg/dL 70-110 : [facility] (BEAKER) (test code = [place], 1538) [address]: Printed Circuit Boards Inspector/Techni dakota ID = [id number] for Marcio Guerra HGB/HCT (H&H)-Stat [id number] 18:09:55 Test Item Value Reference Range Interpretation Comments Hemoglobin (test code = 10.2 See_Comment L [Au tomated message] 786-4) The system [employer] - [employer] First [employer] Its Kind Fl[employer] generated this result transmitted ref erence range: 13.0 - 1 6.8 GM/DL. The refe rence range was not u sed to interpret this result as normal/abnor mal. Hematocrit (test code = 30.0 % 40.0-50.0 L 4544-3) Lab Interpretation (test Abnormal code = 10388-6) [facility] [id number] 18:09:55 Test Item Value Reference Range Interpretation Comments Hemoglobin (test code = 10.2 See_Comment L [Au tomated message] 786-4) The system [employer] - [employer] Its [employer] generated this result transmitted ref erence range: 13.0 - 1 6.8 GM/DL. The refe rence range was not u sed to interpret this result as normal/abnor mal. Hematocrit (test code = 30.0 % 40.0-50.0 L 4544-3) Lab Interpretation (test Abnormal code = 08553-9) [facility] [id number] 18:09:55 Test Item Value Reference Range Interpretation Comments Hemoglobin (test code = 10.2 See_Comment L [Au tomated message] 786-4) The system [employer] - [employer] generated this result transmitted ref erence range: 13.0 - 1 6.8 GM/DL. The refe rence range was not u sed to interpret this result as normal/abnor mal. Hematocrit (test code = 30.0 % 40.0-50.0 L 4544-3) Lab Interpretation (test Abnormal code = 01724-5) [facility] [id number] 18:09:55 Test Item Value Reference Range Interpretation Comments Hemoglobin (test code = 10.2 See_Comment L [Au tomated message] 786-4) The system [employer] - [employer] generated this result transmitted ref erence range: 13.0 - 1 6.8 GM/DL. The refe rence range was not u sed to interpret this result as normal/abnor mal. Hematocrit (test code = 30.0 % 40.0-50.0 L 4544-3) Lab Interpretation (test Abnormal code = 45011-3) [facility] [id number] 18:09:55 Test Item Value Reference Range Interpretation Comments Hemoglobin (test code = 10.2 See_Comment L [Au tomated message] 786-4) The system [employer] - [employer] generated this result transmitted ref erence range: 13.0 - 1 6.8 GM/DL. The refe rence range was not u sed to interpret this result as normal/abnor mal. Hematocrit (test code = 30.0 % 40.0-50.0 L 4544-3) Lab Interpretation (test Abnormal code = 41779-7) [facility] [id number] 18:09:55 Test Item Value Reference Range Interpretation Comments Hemoglobin (test code = 10.2 See_Comment L [Au tomated message] 786-4) The system [employer] - [employer] generated this result transmitted ref erence range: 13.0 - 1 6.8 GM/DL. The refe rence range was not u sed to interpret this result as normal/abnor mal. Hematocrit (test code = 30.0 % 40.0-50.0 L 4544-3) Lab Interpretation (test Abnormal code = 50352-1) [facility] [id number] 18:09:55 Test Item Value Reference Range Interpretation Comments Hemoglobin (test code = 10.2 See_Comment L [Au tomated message] 786-4) The system [employer] - [employer] generated this result transmitted ref erence range: 13.0 - 1 6.8 GM/DL. The refe rence range was not u sed to interpret this result as normal/abnor mal. Hematocrit (test code = 30.0 % 40.0-50.0 L 4544-3) Lab Interpretation (test Abnormal code = 96511-7) [facility] - STAT [id number] 18:09:55 Test Item Value Reference Range Interpretation Comments HEMOGLOBIN (BEAKER) (test code = 10.2 GM/DL 13.0-16.8 L 410) HEMATOCRIT (BEAKER) (test code = 30.0 % 40.0-50.0 L 411) Sodium Na-Stat [id number] 18:09:54 Test Item Value Reference Range Interpretation Comments Sodium (test code = 2951-2) 130 meq/L 136-145 L Lab Interpretation (test code = Abnormal 53942-5) [facility] [id number] 18:09:54 Test Item Value Reference Range Interpretation Comments Sodium (test code = 2951-2) 130 meq/L 136-145 L Lab Interpretation (test code = Abnormal 11018-5) [facility] [id number] 18:09:54 Test Item Value Reference Range Interpretation Comments Sodium (test code = 2951-2) 130 meq/L 136-145 L Lab Interpretation (test code = Abnormal 60887-0) [facility] [id number] 18:09:54 Test Item Value Reference Range Interpretation Comments Sodium (test code = 2951-2) 130 meq/L 136-145 L Lab Interpretation (test code = Abnormal 31295-2) [facility] Na-Stat [id number] 18:09:54 Test Item Value Reference Range Interpretation Comments Sodium (test code = 2951-2) 130 meq/L 136-145 L Lab Interpretation (test code = Abnormal 37802-5) [facility] [id number] 18:09:54 Test Item Value Reference Range Interpretation Comments Sodium (test code = 2951-2) 130 meq/L 136-145 L Lab Interpretation (test code = Abnormal 33264-1) [facility]Stat [id number] 18:09:54 Test Item Value Reference Range Interpretation Comments Sodium (test code = 2951-2) 130 meq/L 136-145 L Lab Interpretation (test code = Abnormal 75518-8) [facility] NA-STAT [id number] 18:09:54 Test Item Value Reference Range Interpretation Comments SODIUM (BEAKER) (test code = 381) 130 meq/L 136-145 L Blood gas, [id number] 18:09:53 Test Item Value Reference Range Interpretation Comments pH, Arterial (test code 7.50 7.35-7.45 H = 2744-1) pCO2, Arterial (test 35 See_Comment [Autom ated message] code = 2019-) The system [employer] generated this result transmit hernandez reference range : 35 - 45 mm Hg. The reference range was not used to interpret this result as normal/abnormal . pO2, Arterial (test 139 See_Comment H [Automa hernandez message] code = 2703-7) The system [employer] generated this result transmit hernandez reference range [...] 8310-5) Lab Interpretation Abnormal (test code = 06237-8) [facility] Center[facility], [id number] 18:09:53 Test Item Value Reference Range Interpretation Comments pH, Arterial (test code 7.50 7.35-7.45 H = 2744-1) pCO2, Arterial (test 35 See_Comment [Autom ated message] code = 2018-) The system [employer] generated this result transmit hernandez reference range : 35 - 45 mm Hg. The reference range was not used to interpret this result as normal/abnormal . pO2, Arterial (test 139 See_Comment H [Automa hernandez message] code = 2703-7) The system [employer] generated this result transmit hernandez reference range [...] 8310-5) Lab Interpretation Abnormal (test code = 97184-3) [facility] [id number] 18:09:53 Test Item Value Reference Range Interpretation Comments pH, Arterial (test code 7.50 7.35-7.45 H = 2744-1) pCO2, Arterial (test 35 See_Comment [Autom ated message] code = 2018-) The system [facility] generated this result transmit hernandez reference range : 35 - 45 mm Hg. The reference range was not used to interpret this result as normal/abnormal . pO2, Arterial (test 139 See_Comment H [Automa hernandez message] code = 2703-7) The system [employer] generated this result transmit hernandez reference range [...] 8310-5) Lab Interpretation Abnormal (test code = 74003-4) [facility], [id number] 18:09:53 Test Item Value Reference Range Interpretation Comments pH, Arterial (test code 7.50 7.35-7.45 H = 2744-1) pCO2, Arterial (test 35 See_Comment [Autom ated message] code = 2018-12) The system [employer] generated this result transmit hernandez reference range : 35 - 45 mm Hg. The reference range was not used to interpret this result as normal/abnormal . pO2, Arterial (test 139 See_Comment H [Automa hernandez message] code = 2703-7) The system [employer] generated this result transmit hernandez reference range [...] 8310-5) Lab Interpretation Abnormal (test code = 44294-2) [facility], [id number] 18:09:53 Test Item Value Reference Range Interpretation Comments pH, Arterial (test code 7.50 7.35-7.45 H = 2744-1) pCO2, Arterial (test 35 See_Comment [Autom ated message] code = 2018-12) The system [facility] generated this result transmit hernandez reference range : 35 - 45 mm Hg. The reference range was not used to interpret this result as normal/abnormal . pO2, Arterial (test 139 See_Comment H [Automa hernandez message] code = 2703-7) The system [employer] generated this result transmit hernandez reference range [...] 8310-5) Lab Interpretation Abnormal (test code = 71889-6) [facility], [id number] 18:09:53 Test Item Value Reference Range Interpretation Comments pH, Arterial (test code 7.50 7.35-7.45 H = 2744-1) pCO2, Arterial (test 35 See_Comment [Autom ated message] code = 2019-8) The system [employer] generated this result transmit hernandez reference range : 35 - 45 mm Hg. The reference range was not used to interpret this result as normal/abnormal . pO2, Arterial (test 139 See_Comment H [Automa hernandez message] code = 2703-7) The system [employer] generated this result transmit hernandez reference range [...] 8310-5) Lab Interpretation Abnormal (test code = 08039-8) [facility], [id number] 18:09:53 Test Item Value Reference Range Interpretation Comments pH, Arterial (test code 7.50 7.35-7.45 H = 2744-1) pCO2, Arterial (test 35 See_Comment [Autom ated message] code = 2019-8) The system [employer] generated this result transmit hernandez reference range : 35 - 45 mm Hg. The reference range was not used to interpret this result as normal/abnormal . pO2, Arterial (test 139 See_Comment H [Automa hernandez message] code = 2703-7) The system [employer] generated this result transmit hernandez reference range [...] 8310-5) Lab Interpretation Abnormal (test code = 61140-4) [facility] Center[facility]UM, [id number] 18:09:53 Test Item Value Reference Range Interpretation Comments CALCIUM IONIZED (BEAKER) (test 1.07 mmol/L 1.12-1.27 L code = 698) PH, BLOOD (BEAKER) (test code = 7.50 1810) BLOOD GAS, [id number] 18:09:53 Test Item Value Reference Range Interpretation [...] (BEAKER) (test 37.0 code = 1818) Glucose-Stat [id number] 18:08:53 Test Item Value Reference Range Interpretation Comments Glucose (test code = 2345-7) 101 mg/dL 70-110 Lab Interpretation (test code = Normal 39938-1) [facility] Center[facility]assium[facility]Stat [id number] 18:08:53 Test Item Value Reference Range Interpretation Comments Potassium (test code = 2823-3) 4.2 meq/L 3.6-5.5 Lab Interpretation (test code = Normal 22102-0) [facility] Center[facility]ucose[facility]Stat [id number] 18:08:53 Test Item Value Reference Range Interpretation Comments Glucose (test code = 2345-7) 101 mg/dL 70-110 Lab Interpretation (test code = Normal 16348-8) [facility] CenterPotassium-Stat [id number] 18:08:53 Test Item Value Reference Range Interpretation Comments Potassium (test code = 2823-3) 4.2 meq/L 3.6-5.5 Lab Interpretation (test code = Normal 77519-5) [facility] CenterGlucose[facility]Stat [id number] 18:08:53 Test Item Value Reference Range Interpretation Comments Glucose (test code = 2345-7) 101 mg/dL 70-110 Lab Interpretation (test code = Normal 86887-7) [facility] CenterPotassium-Stat [id number] 18:08:53 Test Item Value Reference Range Interpretation Comments Potassium (test code = 2823-3) 4.2 meq/L 3.6-5.5 Lab Interpretation (test code = Normal 57519-7) [facility] CenterGlucose[facility]Stat [id number] 18:08:53 Test Item Value Reference Range Interpretation Comments Glucose (test code = 2345-7) 101 mg/dL 70-110 Lab Interpretation (test code = Normal 88620-3) [facility] CenterPotassium-Stat [id number] 18:08:53 Test Item Value Reference Range Interpretation Comments Potassium (test code = 2823-3) 4.2 meq/L 3.6-5.5 Lab Interpretation (test code = Normal 36336-3) [facility] CenterGlucose-Stat [id number] 18:08:53 Test Item Value Reference Range Interpretation Comments Glucose (test code = 2345-7) 101 mg/dL 70-110 Lab Interpretation (test code = Normal 61957-6) [facility] CenterPotassium-Stat [id number] 18:08:53 Test Item Value Reference Range Interpretation Comments Potassium (test code = 2823-3) 4.2 meq/L 3.6-5.5 Lab Interpretation (test code = Normal 06174-7) [facility] CenterGlucose-Stat [id number] 18:08:53 Test Item Value Reference Range Interpretation Comments Glucose (test code = 2345-7) 101 mg/dL 70-110 Lab Interpretation (test code = Normal 21126-2) [facility] CenterPotassium-Stat [id number] 18:08:53 Test Item Value Reference Range Interpretation Comments Potassium (test code = 2823-3) 4.2 meq/L 3.6-5.5 Lab Interpretation (test code = Normal 55829-9) [facility] CenterGlucose-Stat [id number] 18:08:53 Test Item Value Reference Range Interpretation Comments Glucose (test code = 2345-7) 101 mg/dL 70-110 Lab Interpretation (test code = Normal 68436-1) [facility] CenterPotassium-Stat [id number] 18:08:53 Test Item Value Reference Range Interpretation Comments Potassium (test code = 2823-3) 4.2 meq/L 3.6-5.5 Lab Interpretation (test code = Normal 90683-3) [facility] CenterGLUCOSE-STAT [id number] 18:08:53 Test Item Value Reference Range Interpretation Comments GLUCOSE RANDOM (BEAKER) (test code 101 mg/dL 70-110 = 652) POTASSIUM-STAT [id number] 18:08:53 Test Item Value Reference Range Interpretation Comments POTASSIUM (BEAKER) (test code = 4.2 meq/L 3.6-5.5 379) POCT-GLUCOSE [id number] 16:03:15 Test Item Value Reference Range Interpretation Comments POC-GLUCOSE METER 128 mg/dL 70-110 H : TESTED A T [facility] [address] (BEAKER) (test code = [place], 1538) [address]: Printed Circuit Boards Inspector/Techni dakota ID = [id number] for Keely House VANCOMYCIN LEVEL, [id number] 14:06:37 Test Item Value Reference Range Interpretation Comments VANCOMYCIN TROUGH (BEAKER) (test 10.9 ug/mL 10.0-20.0 code = 522) [employer] Boards Inspector ID - DBSARS-COV2/RT-PCR ([facility])2021-10-02 12:40:57 Test Item Value Reference Range Interpretation Comments SARS-COV2/RT-PCR (test Negative Not Detected, Negative, code = 5902240) See external report for linked test SARS-COV-[address] [facility] SELENA (test code = 5672254) Negative result for this test determines that [...] of the Act.Fact Sheet for Healthcare Prov iders:https://www.[employer]/sites/default/files/product/documents/Fact_Sheet_HC _Dbhntdggi_Wzmb_TTSA-XdC-6.pdfFact Sheet for Healthcare Patients:https://www.[employer]/sites/default/files/product/docume nts/Msln_Qzyjz_Qaaswmgd_Pzvv_BKGN-DqE-0.pdfPerforming Laboratory:[facility], [place] [address]WD, DRAINAGE, ABDOMINAL 2021-10-02 11:36:00Reason for exam:->necrotizing pancreatitis wiht fluid collections in abdomenReason for exam:->pls send cultures (aerobic, anaerobic) and amylase from fluid (all are ordered) [facility] : 2000 Sex: MFINAL REPORT PROCEDURE: Drainage catheter placement Procedural PersonnelAttending physician(s): Marvin Jordan physician(s): NoneResident physician(s): NoneAdvanced practice provider(s): None Pre-procedure diagnosis: Necrotizing pancreatitisPost-procedure diagnosis: SameIndication:Leukocytosis with fluid collectionAdditional clinical history: None Complications: No immediate complications. IMPRESSION: Percutaneous placement of a 16 Malaysian drainage catheter into the anterior right upper [...] with the report as written. Signed: Frida Dalyeport Verified Date/Time: 10/02/2021 11:36:21 POCT-GLUCOSE [id number] 11:03:27 Test Item Value Reference Range Interpretation Comments POC-GLUCOSE METER 109 mg/dL 70-110 : TESTED A T [facility] [address] (BEAKER) (test code = [place], 1538) [address]: Printed Circuit Boards Inspector/Techni dakota ID = [id number] for QUEEN HONEYCUTT BLOOD [id number] 10:09:04 Test Item Value Reference Interpretation Comments [...] gram 1123) positive cocci in clusters POCT-GLUCOSE [id number] 07:31:14 Test Item Value Reference Range Interpretation Comments POC-GLUCOSE METER 76 mg/dL 70-110 : TESTED A T [facility] [address] (BEAKER) (test code = [place], 1538) [address]: [employer] Circuit Boards Inspector/Techni dakota ID = [id number] for QUEEN JACOBSEN [id number] 07:25:22 Test Item Value Reference Range Interpretation Comments PHOSPHORUS (BEAKER) (test code = 3.1 mg/dL 2.3-4.7 604) [employer] Boards Inspector ID - RMHEPATIC FUNCTION [id number] 07:25:22 Test Item Value Reference Range Interpretation [...] (test code = 7 U/L 6-55 347) [employer] Boards Inspector ID - RMBASIC METABOLIC [id number] 07:25:21 Test Item Value Reference Range Interpretation [...] S NOT APPLICABLE FOR DIALYSIS PATIEN TS. [employer] Boards Inspector ID - [id number] 07:25:21 Test Item Value Reference Range Interpretation Comments MAGNESIUM (BEAKER) (test code = 1.6 mg/dL 1.6-2.6 627) [employer] Boards Inspector ID - [id number] (HEMOGRAM ONLY)2021-10-02 06:32:43 Test [...] 0-0 (BEAKER) (test code = 413) POCT-GLUCOSE [id number] 21:46:52 Test Item Value Reference Range Interpretation Comments POC-GLUCOSE METER 229 mg/dL 70-110 H : TESTED A T [facility] [address] (GENEVA) (test code = [place] [facility], 1538) [address]: Printed Circuit Boards Inspector/Techni dakota ID = [id number] for HERLINDA VELASQUEZ POCT-GLUCOSE [id number] 16:53:40 Test Item Value Reference Range Interpretation Comments POC-GLUCOSE METER 231 mg/dL 70-110 H : Notified RN/MD: (GENEVA) (test code = TESTED AT [facility] 67[address] 1538) [facility], [address]: Printed Circuit Boards Inspector/Techni dakota ID = [id number] for Filippo Feldman 2D Echo W/Doppler(CW/PW/Color)2021-10-01 14:03:19 Test Item Value Reference Range Interpretation Comments Ejection Fraction Est EF is 55-60% (test code = 2574) Radiology Study observation (narrative) (test code = 07545-9) PXN (test code = Alejandro Hudson MD PXN) - 10/01/2021 Transthoracic Echocardiography Report (TTE) Demographics Patient Name YAMILE, Date of Study 10/01/2021 PARNELL Gender Male Visit Number [id number] Race Unknown Room Number 931 Number Date of 2000 Referring Physician Rebecca Echols Age 21 year(s) Cinder Pit Worker Garret Calderon [facility] Certified Paralegal Stefano Genao Interpreting Physician MAR Espinoza Procedure [...] Velocity: 2.26 m/s TR Gradient: 20.34 mmHg [facility]2D [facility] W/Doppler(CW/PW/Color)2021-10-01 14:03:19 Test Item Value Reference Range Interpretation Comments Ejection Fraction Est EF is 55-60% (test code = 2574) Radiology Study observation (narrative) (test code = 05016-9) PXN (test code = Alejandro Hudson MD PXN) - 10/01/2021 Transthoracic Echocardiography Report (TTE) Demographics Patient Name YAMILE, Date of Study 10/01/2021 PARNELL Gender Male Visit Number [id number] Race Unknown Room Number 931 Number Date of 2000 Referring Physician Rebecca Echols Age 21 year(s) Cinder Pit Worker Garret Calderon [facility] Certified Paralegal Stefano Genao Interpreting Alejandro Hudson, Physician Procedure Type of Study TTE procedure:2DECHO W [...] Velocity: 2.26 m/s TR Gradient: 20.34 mmHg [facility] W/Doppler(CW/PW/Color)2021-10-01 14:03:19 Test Item Value Reference Range Interpretation Comments Ejection Fraction Est EF is 55-60% (test code = 2574) Radiology Study observation (narrative) (test code = 19355-6) PXN (test code = Alejandro Hudson MD PXN) - 10/01/2021 Transthoracic Echocardiography Report (TTE) Demographics Patient Name YAMILE, Date of Study 10/01/2021 PARNELL Gender Male Visit Number [id number] Race Unknown Room Number 931 Number Date of 2000 Referring Physician Rebecca Echols Age 21 year(s) Cinder Pit Worker Garret Calderon [facility] Certified Paralegal Stefano Genao Interpreting Physician MAR Espinoza Procedure [...] Velocity: 2.26 m/s TR Gradient: 20.34 mmHg [facility] W/Doppler(CW/PW/Color)2021-10-01 14:03:19 Test Item Value Reference Range Interpretation Comments Ejection Fraction Est EF is 55-60% (test code = 2574) Radiology Study observation (narrative) (test code = 20273-8) PXN (test code = Alejandro Hudson MD PXN) - 10/01/2021 Transthoracic Echocardiography Report (TTE) Demographics Patient Name YAMILE, Date of Study 10/01/2021 VANGIE Gender Male Visit Number [id number] Race Unknown Room Number 931 Number Date of 2000 Referring Physician Rebecca Echols Age 21 year(s) Cinder Pit Worker Garret Calderon RD Certified Paralegal Stefano Genao Interpreting Physician MAR Espinoza Procedure [...] Velocity: 2.26 m/s TR Gradient: 20.34 mmHg [facility] W/Doppler(CW/PW/Color)2021-10-01 14:03:19 Test Item Value Reference Range Interpretation Comments Ejection Fraction Est EF is 55-60% (test code = 2574) Radiology Study observation (narrative) (test code = 68038-7) PXN (test code = Alejandro Hudson MD PXN) - 10/01/2021 Transthoracic Echocardiography Report (TTE) Demographics Patient Name YAMILE, Date of Study 10/01/2021 VANGIE Gender Male Visit Number [id number] Race Unknown Room Number 931 Number Date of 2000 Referring Physician Rebecca Echols Age 21 year(s) Cinder Pit Worker Garret Calderon RDCS Certified Paralegal Stefano Genao Interpreting Physician MAR Espinoza Procedure [...] Velocity: 2.26 m/s TR Gradient: 20.34 mmHg [facility] Echo W/Doppler(CW/PW/Color)2021-10-01 14:03:19 Test Item Value Reference Range Interpretation Comments Ejection Fraction Est EF is 55-60% (test code = 2574) Radiology Study observation (narrative) (test code = 86330-7) PXN (test code = Alejandro Hudson MD PXN) - 10/01/2021 Transthoracic Echocardiography Report (TTE) Demographics Patient Name YAMILE, Date of Study 10/01/2021 PARNELL Gender Male Visit Number [id number] Race Unknown Room Number 931 Number Date of 2000 Referring Physician Rebecca Echols Age 21 year(s) Cinder Pit Worker Garret Calderon [facility] Certified Paralegal Stefano Genao Interpreting Physician MAR Espinoza Procedure [...] Velocity: 2.26 m/s TR Gradient: 20.34 mmHg [facility] Echo W/Doppler(CW/PW/Color)2021-10-01 14:03:19 Test Item Value Reference Range Interpretation Comments Ejection Fraction Est EF is 55-60% (test code = 2574) Radiology Study observation (narrative) (test code = 17064-9) PXN (test code = Alejandro Hudson MD PXN) - 10/01/2021 Transthoracic Echocardiography Report (TTE) Demographics Patient Name YAMILE, Date of Study 10/01/2021 PARNELL Gender Male Visit Number [id number] Race Unknown Room Number 931 Number Date of 2000 Referring Physician Rebecca Echols Age 21 year(s) Cinder Pit Worker Garret Calderon [facility] Certified Paralegal Stefano Genao Interpreting Physician MAR Espinoza Procedure [...] Velocity: 2.26 m/s TR Gradient: 20.34 mmHg [facility]PO[facility] [id number] 12:29:44 Test Item Value Reference Range Interpretation Comments POC-GLUCOSE METER 186 mg/dL 70-110 H : TESTED A T [facility] [address] (GENEVA) (test code = [place], 1538) [address]: Printed Circuit Boards Inspector/Techni dakota ID = [id number] for DELMAR COOPER CT, ABDOMEN - PELVIS, PANCREAS [id number] 09:34:00Please have IV contrast if not already part of protocol.Unlisted Reason for Exam - Click Yes and Enter Reason Below->No [facility] : 2000 [...] necrosis Superior Mesenteric Arter y: Patent Celiac Fortesc[place]: Patent Celiac [place] and Hepatic Artery Anatomy: Conventional Gastroduodenal Artery: Patent Splenic Artery: Patent Main Portal Vein: Patent Portal Vein [place]: Patent Splenic Vein: Patent Superior Mesenteric Vein: [...] Holloway MDReport Verified Date/Time: 10/01/2021 09:34:00 BLOOD [id number] 08:36:30 Test Item Value Reference Range Interpretation Comments CULTURE A From Aerobic An d (BEAKER) (test Anaerobic Bot tles Same code = 1095) organism has be en isolated from cultures(s) of the same body site and collection date . Repeat identifi cation and susceptibil ity testing perform ed only after consultat ion with the [facility] al microbiology laboratory.Refe r to previous cultur e of* - Staphylococcus hominis GRAM STAIN From aerobic and RESULT (BEAKER) anaerobic (test code = bottles: gram 1123) positive cocci in clusters BODY FLUID CULTURE + GRAM [id number] 08:15:57 Test Item Value Reference Range Interpretation [...] gram negative (BEAKER) (test code = rods 994420) [id number] 05:43:54 Test Item Value Reference Range Interpretation Comments PHOSPHORUS (BEAKER) (test code = 2.8 mg/dL 2.3-4.7 604) Printed Circuit Boards Inspector ID - SHREE WHEPATIC FUNCTION [id number] 05:43:54 Test Item Value Reference Range Interpretation [...] (test code = 7 U/L 6-55 347) Printed Circuit Boards Inspector ID Cherelle SWANN WBASIC METABOLIC [id number] 05:43:53 Test Item Value Reference Range Interpretation [...] S NOT APPLICABLE FOR DIALYSIS PATIEN TS. Printed Circuit Boards Inspector ID Cherelle SWANN [id number] 05:43:53 Test Item Value Reference Range Interpretation Comments MAGNESIUM (BEAKER) (test code = 1.4 mg/dL 1.6-2.6 L 627) Printed Circuit Boards Inspector ID Cherelle SWANN WCBC (HEMOGRAM ONLY)2021-10-01 05:31:02 [...] (BEAKER) (test code = 413) Prepare Leuko-Red [id number] 23:54:00 Test Item Value Reference Range Interpretation Comments CROSSMATCH (test code = 2264) COMPATIBLE Unit ABO (test code = A Pos 0524514) UNIT NUMBER (test code = [id number] 934-0) Status (test code = 0432917) TX_TIMEINCHART Blood Bank Product (test code RED BLOOD CELLS = 2263) PRODUCT CODE (test code = [id number] 933-2) [facility] [id number] 23:54:00 Test Item Value Reference Range Interpretation Comments CROSSMATCH (test code = 2264) COMPATIBLE Unit ABO (test code = A Pos 6348285) UNIT NUMBER (test code = [id number] 934-0) Status (test code = 0231316) TX_TIMEINCHART Blood Bank Product (test code RED BLOOD CELLS = 2263) PRODUCT CODE (test code = G4213E38 933-2) [facility] Leuko-Red [id number] 23:54:00 Test Item Value Reference Range Interpretation Comments CROSSMATCH (test code = 2264) COMPATIBLE Unit ABO (test code = A Pos 5886008) UNIT NUMBER (test code = [id number] 934-0) Status (test code = 9448270) [facility] Blood Bank Product (test code RED BLOOD CELLS = 2263) PRODUCT CODE (test code = K9597V14 933-2) [facility] CenterPre[facility] Leuko-Red [id number] 23:54:00 Test Item Value Reference Range Interpretation Comments CROSSMATCH (test code = 2264) COMPATIBLE Unit ABO (test code = A Pos 1613177) UNIT NUMBER (test code = [id number] 934-0) Status (test code = 9034430) [facility] [place] Blood Bank Product (test code RED BLOOD CELLS = 2263) PRODUCT CODE (test code = [id number] 933-2) [facility] CenterPre[facility] Leuko-Red [id number] 23:54:00 Test Item Value Reference Range Interpretation Comments CROSSMATCH (test code = 2264) COMPATIBLE Unit ABO (test code = A Pos 1364758) UNIT NUMBER (test code = [id number] 934-0) Status (test code = 6131412) [place]_TIMEINCHART Blood Bank Product (test code RED BLOOD CELLS = 2263) PRODUCT CODE (test code = Y6474L46 933-2) [facility] CenterPreh[facility] Leuko-Red [id number] 23:54:00 Test Item Value Reference Range Interpretation Comments CROSSMATCH (test code = 2264) COMPATIBLE Unit ABO (test code = A Pos 8810687) UNIT NUMBER (test code = [id number] 934-0) Status (test code = 6964009) TX_TIMEINCHART Blood Bank Product (test code RED BLOOD CELLS = 2263) PRODUCT CODE (test code = W5307X60 933-2) [facility] Center[facility] Leuko-Red [id number] 23:54:00 Test Item Value Reference Range Interpretation Comments CROSSMATCH (test code = 2264) COMPATIBLE Unit ABO (test code = A Pos 6325472) UNIT NUMBER (test code = [id number] 934-0) Status (test code = 6386729) [place]_TIMEINCHART Blood Bank Product (test code RED BLOOD CELLS = 2263) PRODUCT CODE (test code = G7196U82 933-2) [facility] CenterPOCT[facility]GLUCOSE [id number] 22:44:20 Test Item Value Reference Range Interpretation Comments POC-GLUCOSE METER 162 mg/dL 70-110 H : TESTED A T [facility] [address] (BEAKER) (test code = [facility], 153) [address]: Printed Circuit Boards Inspector/Techni dakota ID = [id number] for MARCOS WESTFALL POCT-GLUCOSE [id number] 17:43:25 Test Item Value Reference Range Interpretation Comments POC-GLUCOSE METER 145 mg/dL 70-110 H : TESTED A T [facility] [address] (BEAKER) (test code = [facility], 153) [address]: Printed Circuit Boards Inspector/Techni dakota ID = [id number] for DELMAR COOPER POCT-GLUCOSE [id number] 12:01:10 Test Item Value Reference Range Interpretation Comments POC-GLUCOSE METER 147 mg/dL 70-110 H : TESTED A T [facility] [address] (BEAKER) (test code = [facility], 153) [address]: Printed Circuit Boards Inspector/Techni dakota ID = [id number] for DELMAR COOPER POCT-GLUCOSE [id number] 07:49:49 Test Item Value Reference Range Interpretation Comments POC-GLUCOSE METER 131 mg/dL 70-110 H : TESTED A T [facility] [address] (BEAKER) (test code = [facility], 153) [address]: Printed Circuit Boards Inspector/Techni dakota ID = [id number] for DELMAR COOPER COMPLEMENT COMPONENT [id number] 02:28:40 Test Item Value Reference Range Interpretation Comments C4 COMPLEMENT (BEAKER) (test code = 5 mg/dL 15-57 L 394) [employer]ed [employer] Boards Inspector ID - BSCOMPLEMENT COMPONENT [id number] 02:28:40 Test Item Value Reference Range Interpretation Comments C3 COMPLEMENT (BEAKER) (test code = 38 mg/dL 82-193 L 393) [employer]ed Circuit Boards Inspector ID - BSHEPATIC FUNCTION [id number] 02:27:21 Test Item Value Reference Range Interpretation [...] (test code = 11 U/L 6-55 347) [employer]ed Circuit Boards Inspector ID - [id number] 02:27:20 Test Item Value Reference Range Interpretation Comments MAGNESIUM (BEAKER) (test code = 1.6 mg/dL 1.6-2.6 627) [employer] Boards Inspector ID - [id number] 02:27:20 Test Item Value Reference Range Interpretation Comments PHOSPHORUS (BEAKER) (test code = 3.0 mg/dL 2.3-4.7 604) [employer] Boards Inspector ID - BSBASIC METABOLIC [id number] 02:27:19 Test Item Value Reference Range Interpretation [...] S NOT APPLICABLE FOR DIALYSIS PATIEN TS. Printed Circuit Boards Inspector ID - BSVANCOMYCIN LEVEL, [id number] 02:21:15 Test Item Value Reference Range Interpretation Comments VANCOMYCIN TROUGH (BEAKER) (test 22.5 ug/mL 10.0-20.0 H code = 522) Printed Circuit Boards Inspector ID - [id number] (HEMOGRAM ONLY)2021-09-30 02:04:23 Test [...] H (BEAKER) (test code = 413) POCT-GLUCOSE [id number] 20:56:24 Test Item Value Reference Range Interpretation Comments POC-GLUCOSE METER 187 mg/dL 70-110 H : TESTED A T [facility] 6720 (BEAKER) (test code = [place], 1538) [address]: Printed Circuit Boards Inspector/Techni dakota ID = [id number] for HERLINDA VELASQUEZ CREATININE, RANDOM [id number] 19:52:48 Test Item Value Reference Range Interpretation Comments CREATININE URINE (BEAKER) (test 38.8 mg/dL code = 375) Reference Range: No NormalsOperator ID - BSPROTEIN, RANDOM [id number] 19:52:48 Test Item Value Reference Range Interpretation Comments PROTEIN, URINE (BEAKER) (test code = 25 mg/dL 0-14 H 1569) [employer]ed [employer] Boards Inspector ID - BSURINALYSIS W/ [id number] 18:44:32 Test Item Value Reference Range Interpretation [...] = 1521) SOURCE(BEAKER) (test code = 2795) Printed Circuit Boards Inspector ID - [auto][employer]ed [employer] Boards Inspector ID - techAmylase, body [id number] 09:10:30 Test Item Value Reference Range Interpretation Comments Amylase, Fluid (test 18 U/L code = 1795-4) IDALIA (test code = Absence of reference IDALIA) range indicates that normals have not been defined.Assay performance has not been validated for this type of specimen. Printed Circuit Boards Inspector ID - [id number] [facility] body [id number] 09:10:30 Test Item Value Reference Range Interpretation Comments Amylase, Fluid (test 18 U/L code = 1795-4) IDALIA (test code = Absence of reference IDALIA) range indicates that normals have not been defined.Assay performance has not been validated for this type of specimen. [employer]ed [employer] Boards Inspector ID - [id number] [facility]Am[facility], body [id number] 09:10:30 Test Item Value Reference Range Interpretation Comments Amylase, Fluid (test 18 U/L code = 1795-4) IDALIA (test code = Absence of reference IDALIA) range indicates that normals have not been defined.Assay performance has not been validated for this type of specimen. [employer]ed Circuit Boards Inspector ID - [id number] [facility]Am[facility], body [id number] 09:10:30 Test Item Value Reference Range Interpretation Comments Amylase, Fluid (test 18 U/L code = 1795-4) IDALIA (test code = Absence of reference IDALIA) range indicates that normals have not been defined.Assay performance has not been validated for this type of specimen. [employer]ed [employer] Boards Inspector ID - [id number] [facility]Am[facility], body [id number] 09:10:30 Test Item Value Reference Range Interpretation Comments Amylase, Fluid (test 18 U/L code = 1795-4) IDALIA (test code = Absence of reference IDALIA) range indicates that normals have not been defined.Assay performance has not been validated for this type of specimen. [employer] Boards Inspector ID - [id number] [facility], body [id number] 09:10:30 Test Item Value Reference Range Interpretation Comments Amylase, Fluid (test 18 U/L code = 1795-4) IDALIA (test code = Absence of reference IDALAI) range indicates that normals have not been defined.Assay performance has not been validated for this type of specimen. [employer] Boards Inspector ID - [id number] [facility], body [id number] 09:10:30 Test Item Value Reference Range Interpretation Comments Amylase, Fluid (test 18 U/L code = 1795-4) IDALIA (test code = Absence of reference IDALIA) range indicates that normals have not been defined.Assay performance has not been validated for this type of specimen. Printed Circuit Boards Inspector ID - [id number] [facility] CenterAM[facility], BODY [id number] 09:10:30 Test Item Value Reference Range Interpretation Comments AMYLASE FLUID (BEAKER) (test code = 18 U/L 350) Absence of reference range indicates that normals have not been defined.Assay performance has not been validated for this type of specimen.[employer]ed [employer] Boards Inspector ID - [id number]-BYQEMIL [id number] 08:52:13 Test Item Value Reference Range Interpretation Comments POC-GLUCOSE METER 103 mg/dL 70-110 : TESTED A T [facility] 6720 (BEAKER) (test code = [place], 1538) [address]: Printed Circuit Boards Inspector/Techni dakota ID = [id number] for DELMAR COOPER [id number] 05:58:12 Test Item Value Reference Range Interpretation Comments PHOSPHORUS (BEAKER) (test code = 3.7 mg/dL 2.3-4.7 604) Printed Circuit Boards Inspector ID - BISI GHEPATIC FUNCTION [id number] 05:58:12 Test Item Value Reference Range Interpretation [...] (test code = 10 U/L 6-55 347) Printed Circuit Boards Inspector ID - BISI GBASIC METABOLIC [id number] 05:58:11 Test Item Value Reference Range Interpretation [...] S NOT APPLICABLE FOR DIALYSIS PATIEN TS. Printed Circuit Boards Inspector ID - BISI [id number] 05:58:11 Test Item Value Reference Range Interpretation Comments MAGNESIUM (BEAKER) (test code = 1.7 mg/dL 1.6-2.6 627) Printed Circuit Boards Inspector ID - BISI GCBC (HEMOGRAM ONLY)2021-09-29 05:50:24 [...] H (BEAKER) (test code = 413) PROTHROMBIN TIME/[id number] 05:37:22 Test Item Value Reference Range Interpretation Comments PROTIME (BEAKER) 15.2 seconds 11.9-14.2 H (test code = 759) INR (BEAKER) (test 1.22 See_Comment [Automat ed message] code = 370) The system EzFlop - A First of Its Kind Flip Flop generated this result transmitted ref erence range: <=5.90. The reference range was not used to int erpret this result as normal/abnormal . RECOMMENDED COUMADIN/WARFARIN INR THERAPY RANGESSTANDARD DOSE: 2.0 - 3.0 Includes: PROPHYLAXIS for venous thrombosis, systemic embolization; TREATMENT for venous thrombosis and/or pulmonary embolus.HIGH RISK: Target INR is 2.5-3.5 for patients with mechanical heart valves.POCT-GLUCOSE [id number] 20:50:31 Test Item Value Reference Range Interpretation Comments POC-GLUCOSE METER 159 mg/dL 70-110 H : Notified RN/MD: (GENEVA) (test code = TESTED AT [facility] 3188 5856) [facility], [address]: Printed Circuit Boards Inspector/Techni dakota ID = [id number] for HEATH GRANDE RAD, CHEST, 1 VIEW, NON [id number] 19:15:00Reason for exam:->preop patient for OR tomorrowShould this be performed at the bedside?->Yes [facility] 2000 [...] Verified Date/Time: 09/28/2021 19:15:11 BLOOD CULTURE IDENTIFICATION [id number] 18:24:37 Test Item Value Reference Interpretation Comments [...] Not detected Not detected (test code = 8456229) STREPTOCOCCUS (test code Not detected Not detected = 5502554) STREPTOCOCCUS AGALACTIAE Not detected Not detected (GROUP B) (test code = 4691840) STREPTOCOCCUS PNEUMONIAE Not detected Not detected (test code = 7380705) STREPTOCOCCUS PYOGENES Not detected Not detected (GROUP A) (test code = 3059527) ACINETOBACTER BAUMANNII Not detected Not detected (test code = 0909083) HAEMOPHILUS INFLUENZAE Not detected Not detected (test code = 0829940) NEISSERIA MENINGITIDIS Not detected Not detected (test code = 4373803) ENTEROBACTERIACEAE (test Not detected Not detected code = 9208410) ENTEROBACTER CLOACOE Not detected Not detected COMPLEX (test code = 2194296) KLEBSIELLA OXYTOCA (test Not detected Not detected code = 7753715) KLEBSIELLA PNEUMONIAE Not detected Not detected (test code = 1650) PROTEUS (test code = Not detected Not detected 2354317) SERRATIA MARCESCENS Not detected Not detected (test code = 5347599) STACEY ALBICANS (test Not detected Not detected code = 8520026) STACEY GLABRATA (test Not detected Not detected code = 4259115) STACEY KRUSEI (test Not detected Not detected code = 5124841) STACEY PARAPSILOSIS Not detected Not detected (test code = 1223624) STACEY TROPICALIS (test Not detected Not detected code = 9004218) ESCHERICHIA COLI (test Not detected Not detected code = 2591011) METHICILLIN-RESISTANCE Detected Not detected A Note: Antimicrobial GENE (test code = resistance can 7090607) occur via multi ple mechanisms. A N ot Detected result for the FilmArray antimicrobial resistance gene assays does not indicate antimicrobial susceptibility. Subculturing is required for species identification and susceptibility testing of isolates. VANCOMYCIN-RESISTANCE GENE (test code = 4747914) CARBAPENEM-RESISTANCE GENE (test code = 1543931) ENTEROCOCCUS-BEAKER Not detected Not detected (test code = 9548069) PSEUDOMONAS Not detected Not detected AERUGINOSA-BEAKER (test code = 5497388) Other bacteria and resistance markers not targeted by this PCR panel cannot be excluded; therefore clinical correlation and follow up of serology, culture results, and other molecular studies is required. The results are not intended to be used as the sole means for clinical diagnosis or patient management decisions. This sample was tested at the [facility] Molecular Diagnostics Laboratory using the Sword DiagnosticsArray Blood Culture ID Panel. It is FDA cleared and has been verified and approved by the [facility] Molecular Diagnostics Laboratory for clinical use. This laboratory is CLIA-certified and College ofAmerican Pathologists (CAP)-accredited to perform high complexity testing.HEMOGLOBIN AND [id number] 17:52:48 Test Item Value Reference Range Interpretation Comments HEMOGLOBIN (BEAKER) (test code = 7.2 GM/DL 13.7-17.5 L 410) HEMATOCRIT (BEAKER) (test code = 24.6 % 40.1-51.0 L 411) Printed Circuit Boards Inspector ID - [id number] 12:45:54 Test Item Value Reference Range Interpretation Comments Amylase (test code = 32 U/L 25-125 1798-8) IDALIA (test code = IDALIA) Printed Circuit Boards Inspector ID - PIAYA L Lab Interpretation (test Normal code = 99311-5) [facility] 12:45:54 Test Item Value Reference Range Interpretation Comments Amylase (test code = 32 U/L 25-125 1798-8) IDALIA (test code = IDALIA) Printed Circuit Boards Inspector ID - PIAYA L Lab Interpretation (test Normal code = 13278-0) [facility]2022-05-12 12:45:54 Test Item Value Reference Range Interpretation Comments Amylase (test code = 32 U/L 25-125 1798-8) IDALIA (test code = IDALIA) Printed Circuit Boards Inspector ID - PIAYA L Lab Interpretation (test Normal code = 43962-2) [facility]2022-[facility]-12 12:45:54 Test Item Value Reference Range Interpretation Comments Amylase (test code = 32 U/L 25-125 1798-8) IDALIA (test code = IDALIA) Printed [employer] Boards Inspector ID - PIAYA L Lab Interpretation (test Normal code = 52023-7) [facility]20[facility]-12 12:45:54 Test Item Value Reference Range Interpretation Comments Amylase (test code = 32 U/L 25-125 1798-8) IDALIA (test code = IDALIA) Print[employer] Boards Inspector ID - PIAYA L Lab Interpretation (test Normal code = 79897-1) [facility]20[facility]-12 12:45:54 Test Item Value Reference Range Interpretation Comments Amylase (test code = 32 U/L 25-125 1798-8) IDALIA (test code = IDALIA) Print[employer] Boards Inspector ID - PIAYA L Lab Interpretation (test Normal code = 81217-8) [facility]-12 12:45:54 Test Item Value Reference Range Interpretation Comments Amylase (test code = 32 U/L 25-125 1798-8) IDALIA (test code = IDALIA) [employer] Boards Inspector ID - PIAYA L Lab Interpretation (test Normal code = 40674-6) [facility] CenterAMYLASE2022-05-12 12:45:54 Test Item Value Reference Range Interpretation Comments AMYLASE (BEAKER) (test code = 349) 32 U/L 25-125 Printed Circuit Boards Inspector ID - PIAYA LPOCT-GLUCOSE [id number] 12:21:36 Test Item Value Reference Range Interpretation Comments POC-GLUCOSE METER 89 mg/dL 70-110 : TESTED A T [facility] 6720 (BEAKER) (test code = [place], 1538) [address]: Printed Circuit Boards Inspector/Techni dakota ID = [id number] for Milena Wei POCT-GLUCOSE [id number] 07:58:39 Test Item Value Reference Range Interpretation Comments POC-GLUCOSE METER 101 mg/dL 70-110 : TESTED A T [facility] 6720 (BEAKER) (test code [place], = 1538) [address]: Printed Circuit Boards Inspector/Techni dakota ID = [id number] for Martha Bell (CELLAVISION MANUAL DIFF)2021-09-28 06:59:01 [...] CONCENTRATION Adequate (CELLAVISION)(BEAKER) (test code = 3438) Printed [employer] Boards Inspector ID - [id number] ID - Rebecca Elizondo comments: Slide comments: CBC W/PLT COUNT & AUTO [id number] 06:59:00 Test Item Value Reference Range Interpretation [...] 0-0 (BEAKER) (test code = 413) SARS-COV2/RT-PCR ([facility])2021-09-28 05:26:25 Test Item Value Reference Range Interpretation Comments SARS-COV2/RT-PCR Negative Negative The SARS-Co V-2 target (test code = nucleic acids a re not 3649426) detected in thi s specimen. Negative result [...] revoked sooner. Fact Sheet for Healthcare Providers: https://www.[employer] m/Documents/Xpert%20Xpress%20SARS%20CoV-2/Fact%20Sheets/3023802%83DRNE-NXA-9%20 HEALTHCARE%20PROVIDERS%20FACT%20SHEET.pdf Fact Sheet for Healthcare Patients: https://www.[employer]/Documents/Xpert%20Xp ress%20SARS%20CoV-2/Fact%20Sheets/3023801%24HULI-WQU-1%20PATIENT%20FACT%20SHEET .pdfBAADVENTHEALTH MANCHESTER METABOLIC [id number] 05:15:58 Test Item Value Reference Range Interpretation [...] S NOT APPLICABLE FOR DIALYSIS PATIEN TS. Printed Circuit Boards Inspector ID - [id number] 04:33:33 Test Item Value Reference Range Interpretation Comments PHOSPHORUS (BEAKER) (test code = 4.1 mg/dL 2.3-4.7 604) [employer] Boards Inspector ID - BSHEPATIC FUNCTION [id number] 04:33:33 Test Item Value Reference Range Interpretation [...] (test code = 11 U/L 6-55 347) Printed Circuit Boards Inspector ID - [id number] 04:33:32 Test Item Value Reference Range Interpretation Comments MAGNESIUM (BEAKER) (test code = 1.5 mg/dL 1.6-2.6 L 627) Print[employer] Boards Inspector ID - BSLACTIC ACID, [id number] 04:27:30 Test Item Value Reference Range Interpretation Comments LACTATE BLOOD VENOUS (2) (BEAKER) 1.04 mmol/L 0.50-2.20 (test code = 2872) Print[employer] Circuit Boards Inspector ID - BSPROTHROMBIN TIME/[id number] 04:23:49 Test Item Value Reference Range Interpretation Comments PROTIME (BEAKER) 15.5 seconds 11.9-14.2 H (test code = 759) INR (BEAKER) (test 1.25 See_Comment [Automat ed message] code = 370) The system EzFlop - A First of Its Kind Flip Flop generated this result transmitted ref erence range: <=5.90. The reference range was not used to int erpret this result as normal/abnormal . RECOMMENDED COUMADIN/WARFARIN INR THERAPY RANGESSTANDARD DOSE: 2.0 - 3.0 Includes: PROPHYLAXIS for venous thrombosis, systemic embolization; TREATMENT for venous thrombosis and/or pulmonary embolus.HIGH RISK: Target INR is 2.5-3.5 for patients with mechanical heart valves.CT, [id number] 00:01:00Unlisted Reason for Exam - Click Yes and Enter Reason Below->YesUnlisted Reason for Exam->necrotizing panc on OSH imagingIs this for enterography?->NoWill this procedure require oral contrast?->No [facility] 2000 [...] CONCENTRATION Adequate (CELLAVISION)(BEAKER) (test code = 3438) Printed Circuit Boards Inspector ID - Romelia Dashawn comments: Slide comments:COMPREHENSIVE METABOLIC [id number] 22:28:04 Test Item Value Reference Range Interpretation [...] S NOT APPLICABLE FOR DIALYSIS PATIEN TS. Printed Circuit Boards Inspector ID - [id number] 22:28:04 Test Item Value Reference Range Interpretation Comments LIPASE (BEAKER) (test code = 749) 24 U/L 8-78 Printed Circuit Boards Inspector ID - BSLACTIC ACID, [id number] 22:22:02 Test Item Value Reference Range Interpretation Comments LACTATE BLOOD VENOUS 1.20 mmol/L 0.50-2.20 Specime n slightly (2) (BEAKER) (test hemolyzed code = 1928) Print[employer] Circuit Boards Inspector ID - BSPROTHROMBIN TIME/[id number] 22:18:27 Test Item Value Reference Range Interpretation Comments PROTIME (BEAKER) 15.2 seconds 11.9-14.2 H (test code = 759) INR (BEAKER) (test 1.22 See_Comment [Automat ed message] code = 370) The system EzFl[employer] - A First [employer] Its Kind Flip Flop generated this result transmitted ref erence range: <=5.90. The reference range was not used to int erpret this result as normal/abnormal . RECOMMENDED COUMADIN/WARFARIN INR THERAPY RANGESSTANDARD DOSE: 2.0 - 3.0 Includes: PROPHYLAXIS for venous thrombosis, systemic embolization; TREATMENT for venous thrombosis and/or pulmonary embolus.HIGH RISK: Target INR is 2.5-3.5 for patients with mechanical heart valves.CBC W/PLT COUNT & AUTO [id number] 22:11:15 Test Item Value Reference Range Interpretation [...] = 413) RAD, CHEST, 1 VIEW, NON [id number] 21:03:00Reason for exam:->ABNORMAL IMAGING RESULTShould this be performed at the bedside?->Yes [facility] : 2000 [...] IMPRESSION:No acute cardiopulmonary process. Signed: Andrés Holloway MDRort Verified Date/Time: 09/27/2021 21:03:24 - CT ABDOMEN W W/O CONTRAST 2021-09-27 15:48:00 [facility] 2000 Sex: M FAX: Y Willard Crouch Jr [phone] [place]: St: REG Name: VANGIE OVALLE [facility] : 2000 Age/S: 21/M [address] Unit: [id number] [place]: [place] [address] Phys: Willard Cruoch Jr, MD Acct: [id number] Dis Date: Status: REG CLI PHONE #: [phone] Exam Date: 09/27/2021 1530 FAX #: [phone]: PANCREATITIS EXAMS: CPT CODE: [id number] CT ABDOMEN W W/O CONTRAST 81124 EXAM: CT ABDOMEN WITH AND WITHOUT CONTRAST [...] mGy-cm. GFR greater than 60 FINDINGS: Lung ba ses: Bibasilar atelectasis. The heart is slightly enlarged [...] 1 Signed Report (CONTINUED)FAX: Willard Vaughn Jr [phone] [place]: St: REG Name: VANGIE OVALLE [facility] : 2000 Age/S: 21/M [address] Unit: [id number] Loc: [place] [address] Phys: Willard Crouch Jr, MD Acct: [id number] Dis Date: Status: REG CLI PHONE #: [phone] Exam Date: 09/27/2021 1530 FAX #: [phone] Reason: PANCREATITIS EXAMS: CPT CODE: [id number] CT ABDOMEN W W/O CONTRAST 97870 (Continued) IMPRESSION: 1. Slight heterogeneous enhancement of [...] CODING PURPOSES ONLY RESULT CODE: CVR at 4846 Reported and signed by: Vandana Madison MD CC: Willard Crouch Jr Technologist: LAMBERTO ARTEAGA Trnscrd Dt/Tm: 09/27/2021 (1792) t.SDR.PXC Orig Print D/T: S: 09/27/2021 (5918 PAGE 2 Signed ReportBEDSIDE [id number] 15:20:00 Test Item Value Reference Range Interpretation Comments BEDSIDE CREATININE (test code = 0.7 MG/DL 0.5-1.0 N CREATBED) Fecal [id number] 22:49:02 Test Item Value Reference Range Interpretation Comments Fecal Leukocytes (test No fecal leukocytes No fecal leukocytes code = 09032-9) seen seen Lab Interpretation Normal (test code = 58702-6) [facility] Center[facility] shwwndkcka9708-21-18 22:49:02 Test Item Value Reference Range Interpretation Comments Fecal Leukocytes (test No fecal leukocytes No fecal leukocytes code = 71169-3) seen seen Lab Interpretation Normal (test code = 70731-3) [facility] CenterFecal [id number] 22:49:02 Test Item Value Reference Range Interpretation Comments Fecal Leukocytes (test No fecal leukocytes No fecal leukocytes code = 00305-1) seen seen Lab Interpretation Normal (test code = 42567-5) [facility] yamkakoirz5160-06-56 22:49:02 Test Item Value Reference Range Interpretation Comments Fecal Leukocytes (test No fecal leukocytes No fecal leukocytes code = 69948-3) seen seen Lab Interpretation Normal (test code = 42028-0) [facility] vevjqopmvl5831-88-07 22:49:02 Test Item Value Reference Range Interpretation Comments Fecal Leukocytes (test No fecal leukocytes No fecal leukocytes code = 21903-3) seen seen Lab Interpretation Normal (test code = 44196-6) [facility] fyegrvkktg0542-13-03 22:49:02 Test Item Value Reference Range Interpretation Comments Fecal Leukocytes (test No fecal leukocytes No fecal leukocytes code = 39272-1) seen seen Lab Interpretation Normal (test code = 75334-9) [facility] wepnokenyu1302-91-39 22:49:02 Test Item Value Reference Range Interpretation Comments Fecal Leukocytes (test No fecal leukocytes No fecal leukocytes code = 68743-7) seen seen Lab Interpretation Normal (test code = 82356-6) [facility] [id number] 22:49:02 Test Item Value Reference Range Interpretation Comments FECAL LEUKOCYTES No fecal leukocytes No fecal leukocytes (BEAKER) (test code = seen seen 992) POCT-GLUCOSE [id number] 16:36:44 Test Item Value Reference Range Interpretation Comments POC-GLUCOSE METER 204 mg/dL 70-110 H : TESTED A T [facility] 6720 (BEAKER) (test code = [facility], 1538) [address]: Printed Circuit Boards Inspector/Techni dakota ID = [id number] for Co ok, Susanna POCT-GLUCOSE [id number] 11:38:42 Test Item Value Reference Range Interpretation Comments POC-GLUCOSE METER 122 mg/dL 70-110 H : TESTED A T [facility] 6720 (BEAKER) (test code = [facility], 1538) [address]: Printed Circuit Boards Inspector/Techni dakota ID = [id number] for Co [place], Susanna BASIC METABOLIC [id number] 08:51:41 Test Item Value Reference Range Interpretation [...] S NOT APPLICABLE FOR DIALYSIS PATIEN TS. Printed Circuit Boards Inspector ID - DBPOCT-GLUCOSE [id number] 07:42:10 Test Item Value Reference Range Interpretation Comments POC-GLUCOSE METER 100 mg/dL 70-110 : TESTED A T [facility] 6720 (BEAKER) (test code = [facility], 1538) [address]: Printed Circuit Boards Inspector/Techni dakota ID = [id number] for [place], Susanna [id number] 06:05:53 Test Item Value Reference Range Interpretation Comments MAGNESIUM (BEAKER) (test code = 1.5 mg/dL 1.6-2.6 L 627) Printed Circuit Boards Inspector ID - DBPOCT-GLUCOSE [id number] 22:10:06 Test Item Value Reference Range Interpretation Comments POC-GLUCOSE METER 226 mg/dL 70-110 H : TESTED A T [facility] 6720 (BEAKER) (test code = [facility], 1538) [address]: Printed Circuit Boards Inspector/Techni dakota ID = [id number] for Ac farida Banks (contract), Maribel i POCT-GLUCOSE [id number] 17:25:35 Test Item Value Reference Range Interpretation Comments POC-GLUCOSE METER 167 mg/dL 70-110 H : TESTED A T [facility] 6720 (BEAKER) (test code = [facility], 1538) [address]: Printed Circuit Boards Inspector/Techni dakota ID = [id number] for [place], Susanna POCT-GLUCOSE [id number] 11:53:31 Test Item Value Reference Range Interpretation Comments POC-GLUCOSE METER 84 mg/dL 70-110 : TESTED A T [facility] 6720 (BEAKER) (test code = [place] [facility], 1538) [address]: Printed Circuit Boards Inspector/Techni dakota ID = [id number] for Susanna Light POCT-GLUCOSE [id number] 07:47:58 Test Item Value Reference Range Interpretation Comments POC-GLUCOSE METER 91 mg/dL 70-110 : TESTED A T [facility] 6720 (BEAKER) (test code = [place] [facility], 1538) [address]: Printed Circuit Boards Inspector/Techni dakota ID = [id number] for Susanna Light [id number] 05:26:53 Test Item Value Reference Range Interpretation Comments FERRITIN (BEAKER) (test code = 1277.07 ng/mL 5.00-275.00 H 361) Printed Circuit Boards Inspector ID - ALVINA [id number] 05:16:29 Test Item Value Reference Range Interpretation Comments MAGNESIUM (BEAKER) 1.5 mg/dL 1.6-2.6 L Specimen slightly (test code = 627) hemolyzed Printed Circuit Boards Inspector ID - BSCOMPREHENSIVE METABOLIC [id number] 05:16:29 Test Item Value Reference Range Interpretation [...] S NOT APPLICABLE FOR DIALYSIS PATIEN TS. Printed Circuit Boards Inspector ID - BSCBC W/PLT COUNT & AUTO [id number] 05:09:25 Test Item Value Reference Range Interpretation [...] PERCENT (BEAKER) (test code = 2801) POCT-GLUCOSE [id number] 23:08:33 Test Item Value Reference Range Interpretation Comments POC-GLUCOSE METER 180 mg/dL 70-110 H : TESTED A T [facility] 6720 (BEAKER) (test code = [place], 1538) [address]: Printed Circuit Boards Inspector/Techni dakota ID = [id number] for CAROLINA LENZ Giardia [id number] 19:26:40 Test Item Value Reference Range Interpretation Comments STATUS: FINAL (QUEST) (test code = 1002919) RESULT: Not Detected Reference Range :Not (QUEST) (test Detected code = 0044002) Source: (test STOOL code = 33443-5) Comment: See Below NOTE: Due to (test code = intermittent sh edding, ) one negativesam ple does not necess arily rule out the presenceof a pa rasitic infection. IDALIA (test Performing Lab *JESSENIA code = IDALIA) [facility], [address] [place] [phone] Angela Barcenas MD [facility] [id number] 19:26:40 Test Item Value Reference Range Interpretation Comments STATUS: FINAL (QUEST) (test code = ) RESULT: Not Detected Reference Range :Not (QUEST) (test Detected code = 20151121) Source: (test STOOL code = 94840-3) Comment: See Below NOTE: Due to (test code = intermittent sh edding, ) one negativesam ple does not necess arily rule out the presenceof a pa rasitic infection. IDALIA (test Performing Lab *JESSENIA code = IDALIA) [facility], [address] [place] [address] Angela Barcenas MD [facility] [id number] 19:26:40 Test Item Value Reference Range Interpretation Comments STATUS: FINAL (QUEST) (test code = ) RESULT: Not Detected Reference Range :Not (QUEST) (test Detected code = 20151121) Source: (test STOOL code = 43592-1) Comment: See Below NOTE: Due to (test code = intermittent sh edding, ) one negativesam ple does not necess arily rule out the presenceof a pa rasitic infection. IDALIA (test Performing Lab code = IDALIA) *JESSENIA [facility], [address] [place], [place] [address] Angela Barcenas MD [facility] [id number] 19:26:40 Test Item Value Reference Range Interpretation Comments STATUS: FINAL (QUEST) (test code = ) RESULT: Not Detected Reference Range :Not (QUEST) (test Detected code = 20151121) Source: (test STOOL code = 37604-3) Comment: See Below NOTE: Due to (test code = intermittent sh edding, ) one negativesam ple does not necess arily rule out the presenceof a pa rasitic infection. IDALIA (test Performing Lab *JESSENIA code = IDALIA) [facility], [address] [place], [place] [address] Angela Barcenas MD [facility] [id number] 19:26:40 Test Item Value Reference Range Interpretation Comments STATUS: FINAL (QUEST) (test code = ) RESULT: Not Detected Reference Range :Not (QUEST) (test Detected code = 20151121) Source: (test STOOL code = 69245-9) Comment: See Below NOTE: Due to (test code = intermittent sh edding, ) one negativesam ple does not necess arily rule out the presenceof a pa rasitic infection. IDALIA (test Performing Lab *JESSENIA code = IDALIA) [employer] [facility], [address] [place], [place] [phone] Angela Barcenas MD [facility] [id number] 19:26:40 Test Item Value Reference Range Interpretation Comments STATUS: FINAL (QUEST) (test code = 5356221) RESULT: Not Detected Reference Range :Not (QUEST) (test Detected code = 4863785) Source: (test STOOL code = 03973-3) Comment: See Below NOTE: Due to (test code = intermittent edding, ) one negativesam ple does not necess arily rule out the presenceof a pa rasitic infection. IDALIA (test Performing Lab *JESSENIA code = IDALIA) [employer] [facility], [address] [place] [phone] [facility] MD [facility] [id number] 19:26:40 Test Item Value Reference Range Interpretation Comments STATUS: FINAL (QUEST) (test code = 9915455) RESULT: Not Detected Reference Range :Not (QUEST) (test Detected code = 20151121) Source: (test STOOL code = 89531-5) Comment: See Below NOTE: Due to (test code = intermittent edding, ) one negativesam ple does not necess arily rule out the presenceof a pa rasitic infection. IDALIA (test Performing Lab *JESSENIA code = IDALIA) [employer] [facility], [address] [place], [place] [phone] Angela Barcenas MD [facility] CenterPOCT-GLUCOSE [id number] 15:54:55 Test Item Value Reference Range Interpretation Comments POC-GLUCOSE METER 302 mg/dL 70-110 H : TESTED A T [facility] 6720 (BEAKER) (test code = DONNA [place], 1538) [address]: Printed Circuit Boards Inspector/Techni dakota ID = [id number] for Kevin Smith POCT-GLUCOSE [id number] 11:59:06 Test Item Value Reference Range Interpretation Comments POC-GLUCOSE METER 118 mg/dL 70-110 H : TESTED A T [facility] 6720 (BEAKER) (test code = [facility], 1538) [address]: Printed Circuit Boards Inspector/Techni dakota ID = [id number] for Kevin Smith Ova and Parasite [id number] 10:29:02See scanned reportK[facility] Ogppayvomhl8950-05-03 10:29:02See scanned report [facility] Parasite Mgfufpvahsm1972-80-85 10:29:02See scanned reportCH[facility] Uhstfasreln8312-15-91 10:29:02See scanned reportCH[facility] and [facility]ite [id number] 10:29:02See scanned reportK[facility] and Par[facility]ite Qdzvvyxflxe9256-33-29 10:29:02See scanned reportK[facility] and [facility] Xdklbkolcew5709-36-75 10:29:02See scanned report [facility] CenterPOCT-GLUCOSE [id number] 08:15:03 Test Item Value Reference Range Interpretation Comments POC-GLUCOSE METER 153 mg/dL 70-110 H : TESTED A T [facility] 6720 ([facility]) (test code = [facility], 1538) [address]: Printed Circuit Boards Inspector/Techni dakota ID = [id number] for Kevin Smith [id number] 05:39:21 Test Item Value Reference Range Interpretation Comments FERRITIN (BEAKER) (test code = 2065.19 ng/mL 5.00-275.00 H 361) Printed Circuit Boards Inspector ID - ALVINA MOperator ID - ALVINA [id number] 04:33:07 Test Item Value Reference Range Interpretation Comments MAGNESIUM (BEAKER) (test code = 1.7 mg/dL 1.6-2.6 627) Printed Circuit Boards Inspector ID - ALVINA MCOMPREHENSIVE METABOLIC [id number] 04:33:06 Test Item Value Reference Range Interpretation Comments TOTAL PROTEIN 5.8 gm/dL 6.0-8.3 L (AKER) (test code = 770) ALBUMIN (AKER) 2.3 g/dL 3.5-5.0 L (test code = 1145) ALKALINE PHOSPHATASE 91 U/L 40-150 (AKER) (test code = 346) BILIRUBIN TOTAL 0.2 [...] S NOT APPLICABLE FOR DIALYSIS PATIEN TS. Printed Circuit Boards Inspector ID - ALVINA MCBC W/PLT COUNT & AUTO [id number] 04:05:50 Test Item Value Reference Range Interpretation [...] PERCENT (BEAKER) (test code = 2801) POCT-GLUCOSE [id number] 22:26:51 Test Item Value Reference Range Interpretation Comments POC-GLUCOSE METER 263 mg/dL 70-110 H : TESTED A T [facility] 6720 (BEAKER) (test code = [facility], 1538) 03[address]: Printed Circuit Boards Inspector/Techni dakota ID = [id number] for Cherry Morrissey POCT-GLUCOSE [id number] 17:52:33 Test Item Value Reference Range Interpretation Comments POC-GLUCOSE METER 320 mg/dL 70-110 H : TESTED A T [facility] 6720 (BEAKER) (test code [facility], = 1538) [address]: Printed Circuit Boards Inspector/Techni dakota ID = [id number] for SD GALLO [id number] 16:04:21 Test Item Value Reference Range Interpretation Comments MAGNESIUM (BEAKER) (test code = 1.6 mg/dL 1.6-2.6 627) Printed Circuit Boards Inspector ID - BSPOCT-GLUCOSE [id number] 13:44:43 Test Item Value Reference Range Interpretation Comments POC-GLUCOSE METER 243 mg/dL 70-110 H : TESTED A T [facility] 6720 (BEAKER) ([facility], = 1538) [address]: Printed Circuit Boards Inspector/Techni dakota ID = [id number] for SD GALLO ANTI-DNA [id number] 12:19:23 Test Item Value Reference Range Interpretation Comments ANTI-DNA TITER (BEAKER) (test code = :80 1553) DOUBLE-STRANDED DNA (DSDNA) [id number] 12:19:05 Test Item Value Reference Range Interpretation Comments ANTI-DNA DS (BEAKER) (test code = Positive Negative 1055) SARS-COV2/RT-PCR ([facility])2021-09-19 10:54:11 Test Item Value Reference Range Interpretation Comments SARS-COV2/RT-PCR (test Negative Not Detected, Negative, code = 4355209) See external report for linked test SARS-COV-2 PERFORMING LAB [facility] (test code = 7118521) Negative result for this test determines that [...] of the Act.Fact Sheet for Healthcare Prov iders:https://www.[employer]/sites/default/files/product/documents/Fact_Sheet_HC _Ydodlkykb_Sjdp_UQQL-HhR-9.pdfFact Sheet for Healthcare Patients:https://www.[employer]/sites/default/files/product/docume nts/Vdqk_Zccdt_Ytmlfwfm_Npes_ZZKV-VeU-9.pdfPerforming Laboratory:[facility].[place], [place] [address]ZBXF-MPRONXJ METER 2021-09-19 08:21:15 Test Item Value Reference Range Interpretation Comments POC-GLUCOSE METER 228 mg/dL 70-110 H : TESTED A T [facility] 6720 (BEAKER) (test code [facility], = 1538) 00931: Printed Circuit Boards Inspector/Techni dakota ID = [id number] for SD GALLO [id number] 08:08:54 Test Item Value Reference Range Interpretation Comments MAGNESIUM (BEAKER) (test code = 1.4 mg/dL 1.6-2.6 L 627) Printed Circuit Boards Inspector ID - BRANDIN CCOMPREHENSIVE METABOLIC [id number] 08:08:53 Test Item Value Reference Range Interpretation [...] S NOT APPLICABLE FOR DIALYSIS PATIEN TS. Printed Circuit Boards Inspector ID - BRANDIN [id number] 07:30:23 Test Item Value Reference Range Interpretation Comments FERRITIN (BEAKER) (test code = 2272.75 ng/mL 5.00-275.00 H 361) Printed Circuit Boards Inspector ID - SHREE WOperator ID - SHREE WCBC W/PLT COUNT & AUTO [id number] 06:07:16 Test Item Value Reference Range Interpretation [...] PERCENT (BEAKER) (test code = 2801) POCT-GLUCOSE [id number] 21:42:25 Test Item Value Reference Range Interpretation Comments POC-GLUCOSE METER 218 mg/dL 70-110 H : TESTED A T [facility] 6720 (BEAKER) (test code = [place], 1538) [address]: Printed Circuit Boards Inspector/Techni dakota ID = [id number] for ABE TEJADA POCT-GLUCOSE [id number] 17:08:14 Test Item Value Reference Range Interpretation Comments POC-GLUCOSE METER 148 mg/dL 70-110 H : TESTED A T [facility] 6720 (BEAKER) (test code [facility], = 1538) 29969: Printed Circuit Boards Inspector/Techni dakota ID = [id number] for LATT SD [place] MISCELLANEOUS LAB [id number] 14:26:25 Test Item Value Reference Range Interpretation Comments SCAN RESULT (test code = See scanned report [id number]) See scanned reportCMV PCR, [id number] 14:23:40 Test Item Value Reference Range Interpretation [...] and its performance characteristics determined by the [facility] Pathol ogy Department, Section of Molecular Pathology. [...] T [facility] 6720 (BEAKER) (test code [facility], = 1538) 28656: Printed Circuit Boards Inspector/Techni dakota ID = [id number] for SD GALLO MISCELLANEOUS LAB [id number] 09:55:02 Test Item Value Reference Range Interpretation Comments SCAN RESULT (test code = See scanned report [id number]) See scanned reportPOCT-GLUCOSE [id number] 09:36:32 Test Item Value Reference Range Interpretation Comments POC-GLUCOSE METER 99 mg/dL 70-110 : TESTED A T [facility] 6720 (BEAKER) (test code = [place] [facility], 1538) 316[address]: Printed Circuit Boards Inspector/Techni dakota ID = [id number] for SD GALLO COMPREHENSIVE METABOLIC [id number] 07:28:53 Test Item Value Reference Range Interpretation [...] S NOT APPLICABLE FOR DIALYSIS PATIEN TS. Printed Circuit Boards Inspector ID - [id number] 07:28:52 Test Item Value Reference Range Interpretation Comments MAGNESIUM (BEAKER) 1.3 mg/dL 1.6-2.6 L Specimen slightly (test code = 627) hemolyzed Printed Circuit Boards Inspector ID - DBCBC W/PLT COUNT & AUTO [id number] 07:26:37 Test Item Value Reference Range Interpretation [...] PERCENT (BEAKER) (test code = 2801) POCT-GLUCOSE [id number] 22:29:02 Test Item Value Reference Range Interpretation Comments POC-GLUCOSE METER 207 mg/dL 70-110 H : TESTED A T [facility] 6720 (BEAKER) (test code = [facility], 1538) 349[address]: Printed Circuit Boards Inspector/Techni dakota ID = [id number] for DOV LENZIA POCT-GLUCOSE [id number] 17:18:02 Test Item Value Reference Range Interpretation Comments POC-GLUCOSE METER 228 mg/dL 70-110 H : TESTED A T [facility] 6720 (BEAKER) (test code = [facility], 1538) 19106: Printed Circuit Boards Inspector/Techni dakota ID = [id number] for FA ITH, CASEY POCT-GLUCOSE [id number] 12:29:44 Test Item Value Reference Range Interpretation Comments POC-GLUCOSE METER 174 mg/dL 70-110 H : TESTED A T [facility] 6720 (BEAKER) (test code = [facility], 1538) 81110: Printed Circuit Boards Inspector/Techni dakota ID = [id number] for FA ITH, CASEY POCT-GLUCOSE [id number] 12:15:50 Test Item Value Reference Range Interpretation Comments POC-GLUCOSE METER 111 mg/dL 70-110 H : TESTED A T [facility] 6720 (BEAKER) (test code = [place], 1538) [address]: Printed Circuit Boards Inspector/Techni dakota ID = [id number] for MASON LINK GI Pathogen Profile by PCR -ID [id number] 08:09:12 Test Item Value Reference Range Interpretation Comments CAMPYLOBACTER (PCR) Not detected Not detected (test code = 69057-5) PLESIOMONAS SHIGELLOIDES Not detected Not detected (PCR) (test code = 26914-6) SALMONELLA (PCR) (test Not detected Not detected code = 74823-0) YERSINIA ENTEROCOLITICA Not detected Not detected (PCR) (test code = 89549-9) VIBRIO CHOLERAE (PCR) Not detected Not detected (test code = 11249-0) ENTEROAGGREGATIVE E. Not detected Not detected COLI (EAEC) BY PCR (test code = 14832-5) ENTEROPATHOGENIC E. COLI Not detected Not detected (EPEC) BY PCR (test code = 15969-0) ENTEROTOXIGENIC E. COLI Not detected Not detected (ETEC) LT/ST BY PCR (test code = 19495-6) SHIGA-LIKE Not detected Not detected TOXIN-PRODUCING E. COLI (STEC) STX1/STX2 (test code = 62665-6) E. COLI O157 (PCR) (test code = 85205-1) SHIGELLA/ENTEROINVASIVE Not detected Not detected E. COLI (EIEC) BY PCR (test code = 53506-2) CRYPTOSPORIDIUM (PCR) Not detected Not detected (test code = 32605-2) CYCLOSPORA CAYETANENSIS Not detected Not detected (PCR) (test code = 18880-9) ENTAMOEBA HISTOLYTICA Not detected Not detected (PCR) (test code = 26813-8) GIARDIA LAMBLIA (PCR) Not detected Not detected (test code = 93454-4) ADENOVIRUS F 40/41 (PCR) Not detected Not detected (test code = 61368-4) ASTROVIRUS (PCR) (test Not detected Not detected code = 17554-3) NOROVIRUS GI/GII (PCR) Not detected Not detected (test code = 08503-5) ROTAVIRUS A (PCR) (test Not detected Not detected code = 04930-1) SAPOVIRUS (I, II, IV, V) Not detected Not detected BY PCR (test code = 24799-9) VIBRIO Not detected Not detected (PARAHAEMOLYTICUS, VULNIFICUS) (test code = 51564-5) IDALIA (test code = IDALIA) Other viruses, parasites and bacteria not targeted by this PCR panel cannot be excluded; therefore clinical correlation and follow up of serology, culture results, and other molecular studies is required. The results are not intended to be used as the sole means for clinical diagnosis or patient management decisions. This sample was tested at the [facility] Molecular Diagnostics Laboratory using the FIXO Gastrointestinal Panel. It is FDA cleared and has been verified and approved by the [facility] Molecular Diagnostics Laboratory for clinical use. This laboratory is CLIA-certified and [employer] (CAP)-accredited to perform high complexity testing. [facility] by PCR -ID [id number] 08:09:12 Test Item Value Reference Range Interpretation Comments CAMPYLOBACTER PCR (test Not detected Not detected code = 53290-5) PLESIOMONAS SHIGELLOIDES Not detected Not detected (PCR) (test code = 02242-2) SALMONELLA (PCR) (test Not detected Not detected code = 56167-9) YERSINIA ENTEROCOLITICA Not detected Not detected (PCR) (test code = 41248-3) VIBRIO CHOLERAE (PCR) Not detected Not detected (test code = 87278-6) ENTEROAGGREGATIVE E. Not detected Not detected COLI (EAEC) BY PCR (test code = 28473-5) ENTEROPATHOGENIC E. COLI Not detected Not detected (EPEC) BY PCR (test code = 75038-0) ENTEROTOXIGENIC E. COLI Not detected Not detected (ETEC) LT/ST BY PCR (test code = 29320-0) SHIGA-LIKE Not detected Not detected TOXIN-PRODUCING E. COLI (STEC) STX1/STX2 (test code = 70249-8) E. COLI O157 (PCR) (test code = 50164-6) SHIGELLA/ENTEROINVASIVE Not detected Not detected E. COLI (EIEC) BY PCR (test code = 73585-8) CRYPTOSPORIDIUM (PCR) Not detected Not detected (test code = 34600-4) CYCLOSPORA CAYETANENSIS Not detected Not detected (PCR) (test code = 01760-5) ENTAMOEBA HISTOLYTICA Not detected Not detected (PCR) (test code = 04084-6) GIARDIA LAMBLIA (PCR) Not detected Not detected (test code = 63875-4) ADENOVIRUS F 40/41 (PCR) Not detected Not detected (test code = 92540-3) ASTROVIRUS (PCR) (test Not detected Not detected code = 52960-7) NOROVIRUS GI/GII (PCR) Not detected Not detected (test code = 75711-4) ROTAVIRUS A (PCR) (test Not detected Not detected code = 21797-7) SAPOVIRUS (I, II, IV, V) Not detected Not detected BY PCR (test code = 99784-2) VIBRIO Not detected Not detected (PARAHAEMOLYTICUS, VULNIFICUS) (test code = 15009-7) IDALIA (test code = IDALIA) Other viruses, parasites and bacteria not targeted by this PCR panel cannot be excluded; therefore clinical correlation and follow up of serology, culture results, and other molecular studies is required. The results are not intended to be used as the sole means for clinical diagnosis or patient management decisions. This sample was tested at the [facility] Molecular Diagnostics Laboratory using the FIXO Gastrointestinal Panel. It is FDA cleared and has been verified and approved by the [facility] Molecular Diagnostics Laboratory for clinical use. This laboratory is CLIA-certified and [employer] (CAP)-accredited to perform high complexity testing. [facility] by PCR -ID [id number] 08:09:12 Test Item Value Reference Range Interpretation Comments CAMPYLOBACTER PCR (test Not detected Not detected code = 21021-5) PLESIOMONAS SHIGELLOIDES Not detected Not detected (PCR) (test code = 63230-3) SALMONELLA (PCR) (test Not detected Not detected code = 71309-3) YERSINIA ENTEROCOLITICA Not detected Not detected (PCR) (test code = 88605-1) VIBRIO CHOLERAE (PCR) Not detected Not detected (test code = 91463-1) ENTEROAGGREGATIVE E. Not detected Not detected COLI (EAEC) BY PCR (test code = 37845-2) ENTEROPATHOGENIC E. COLI Not detected Not detected (EPEC) BY PCR (test code = 95969-1) ENTEROTOXIGENIC E. COLI Not detected Not detected (ETEC) LT/ST BY PCR (test code = 83463-7) SHIGA-LIKE Not detected Not detected TOXIN-PRODUCING E. COLI (STEC) STX1/STX2 (test code = 35610-0) E. COLI O157 (PCR) (test code = 01791-8) SHIGELLA/ENTEROINVASIVE Not detected Not detected E. COLI (EIEC) BY PCR (test code = 92013-6) CRYPTOSPORIDIUM (PCR) Not detected Not detected (test code = 55658-8) CYCLOSPORA CAYETANENSIS Not detected Not detected (PCR) (test code = 76548-1) ENTAMOEBA HISTOLYTICA Not detected Not detected (PCR) (test code = 25255-7) GIARDIA LAMBLIA (PCR) Not detected Not detected (test code = 60984-5) ADENOVIRUS F 40/41 (PCR) Not detected Not detected (test code = 61893-9) ASTROVIRUS (PCR) (test Not detected Not detected code = 55769-0) NOROVIRUS GI/GII (PCR) Not detected Not detected (test code = 16826-4) ROTAVIRUS A (PCR) (test Not detected Not detected code = 49891-2) SAPOVIRUS (I, II, IV, V) Not detected Not detected BY PCR (test code = 08198-2) VIBRIO Not detected Not detected (PARAHAEMOLYTICUS, VULNIFICUS) (test code = 26096-3) IDALIA (test code = IDALIA) Other viruses, parasites and bacteria not targeted by this PCR panel cannot be excluded; therefore clinical correlation and follow up of serology, culture results, and other molecular studies is required. The results are not intended to be used as the sole means for clinical diagnosis or patient management decisions. This sample was tested at the [facility] Molecular Diagnostics Laboratory using the [employer] Gastrointestinal Panel. It is FDA cleared and has been verified and approved by the [facility] Molecular Diagnostics Laboratory for clinical use. This laboratory is CLIA-certified and [employer] (CAP)-accredited to perform high complexity testing. [facility] PATH[facility]EN PROFILE BY [id number] 08:09:12 Test Item Value Reference Range Interpretation [...] Not detected BY PCR (test code = 6745838) ENTEROPATHOGENIC E. COLI (EPEC) Not detected Not detected BY PCR (test code = 1177120) ENTEROTOXIGENIC E. COLI (ETEC) Not detected Not detected LT/ST BY PCR (test code = 7466315) SHIGA-LIKE TOXIN-PRODUCING E. Not detected Not detected COLI (STEC) STX1/STX2 (test code = 4127555) E. COLI O157 (PCR) (test code = 6550341) SHIGELLA/ENTEROINVASIVE E. COLI Not detected Not detected (EIEC) BY PCR (test code = 6407124) CRYPTOSPORIDIUM (PCR) (test code Not detected Not [...] Not detected Not detected (test code = 6513465) VIBRIO (PARAHAEMOLYTICUS, Not detected Not detected VULNIFICUS) (test code = 0984543) Other viruses, parasites and bacteria not targeted by this PCR panel cannot be excluded; therefore clinical correlation and follow up of serology, culture results, and other molecular studies is required. The results are not intended to be used as the sole means for clinical diagnosis or patient management decisions. This sample was tested at the [facility] Molecular Diagnostics Laboratory using the FIXO Gastrointestinal Panel. It is FDA cleared and has been verified and approved by the [facility] Molecular Diagnostics Laboratory for clinical use. This laboratory is CLIA-certified and College ofAmerican Pathologists (CAP)-accredited to perform high complexity testing.POCT-GLUCOSE [id number] 08:04:19 Test Item Value Reference Range Interpretation Comments POC-GLUCOSE METER 141 mg/dL 70-110 H : TESTED Daphne Adams [facility] 6720 (BEAKER) (test code = [place], 1538) 0[address]: Printed Circuit Boards Inspector/Techni dakota ID = [id number] for CASEY KERNS [id number] 07:09:55 Test Item Value Reference Range Interpretation Comments MAGNESIUM (BEAKER) (test code = 1.6 mg/dL 1.6-2.6 627) Printed Circuit Boards Inspector ID - DBCOMPREHENSIVE METABOLIC [id number] 07:09:54 Test Item Value Reference Range Interpretation [...] S NOT APPLICABLE FOR DIALYSIS PATIEN TS. Printed Circuit Boards Inspector ID - [id number] 06:53:54 Test Item Value Reference Range Interpretation Comments FERRITIN (BEAKER) (test code = 1616.89 ng/mL 5.00-275.00 H 361) Printed Circuit Boards Inspector ID - SHREE WCBC W/PLT COUNT & AUTO [id number] 06:20:10 Test Item Value Reference Range Interpretation [...] PERCENT (BEAKER) (test code = 2801) POCT-GLUCOSE [id number] 22:18:47 Test Item Value Reference Range Interpretation Comments POC-GLUCOSE METER 255 mg/dL 70-110 H : TESTED A T [facility] 6720 (BEAKER) (test code = [facility], 1538) 24611: Printed Circuit Boards Inspector/Techni dakota ID = [id number] for Cherry Morrissey POCT-GLUCOSE [id number] 17:41:27 Test Item Value Reference Range Interpretation Comments POC-GLUCOSE METER 160 mg/dL 70-110 H : TESTED A T [facility] 6720 (BEAKER) (test code = [facility], 153) 43388: Printed Circuit Boards Inspector/Techni dakota ID = [id number] for MASON LINK POCT-GLUCOSE [id number] 11:47:30 Test Item Value Reference Range Interpretation Comments POC-GLUCOSE METER 126 mg/dL 70-110 H : TESTED A T [facility] 6720 (BEAKER) (test code = [facility], 153) 72097: Printed Circuit Boards Inspector/Techni dakota ID = [id number] for MASON LINK [id number] 11:09:58 Test Item Value Reference Range Interpretation Comments FERRITIN (BEAKER) (test code = 1216.61 ng/mL 5.00-275.00 H 361) Printed Circuit Boards Inspector ID - FATMATA WBLOOD [id number] 10:00:55 Test Item Value Reference Range Interpretation Comments CULTURE (BEAKER) (test No growth in 5 days code = 1095) The specimen volume collected for this blood culture was below the optimum (10 mL per bottle or 20 mL total). Use of lower volumes may adversely affect recovery and/or detection times of some organisms.CBC W/PLT COUNT & AUTO [id number] 07:57:54 Test Item Value Reference Range Interpretation [...] (BEAKER) (test code = 2801) COMPREHENSIVE METABOLIC [id number] 07:37:26 Test Item Value Reference Range Interpretation [...] S NOT APPLICABLE FOR DIALYSIS PATIEN TS. Printed Circuit Boards Inspector ID - [id number] 07:37:26 Test Item Value Reference Range Interpretation Comments MAGNESIUM (BEAKER) (test code = 1.5 mg/dL 1.6-2.6 L 627) Printed Circuit Boards Inspector ID - DBClostridium difficile GDH [id number] 23:10:55 Test Item Value Reference Range Interpretation Comments C. Difficle Toxin Negative Negative (test code = ) C. Difficile GDH Positive Negative A C. difficil e Antigen (test code = present but toxin [id number]) not detected. Indicates colonization wi th non-toxigenic [...] of kit performance was done by the [facility] Microbiology Lab prior to clinical use. Lab Interpretation Abnormal (test code = 09319-7) [facility] [id number] 23:10:55 Test Item Value Reference Range Interpretation Comments C. Difficle Toxin Negative Negative (test code = ) C. Difficile GDH Positive Negative A C. difficil e Antigen (test code = present but toxin [id number]) not detected. Indicates colonization wi th non-toxigenic [...] of kit performance was done by the [facility] Microbiology Lab prior to clinical use. Lab Interpretation Abnormal (test code = 91678-5) [facility] [id number] 23:10:55 Test Item Value Reference Range Interpretation Comments C. Difficle Toxin Negative Negative (test code = ) C. Difficile GDH Positive Negative A C. difficil e Antigen (test code = present but toxin [id number]) not detected. Indicates colonization wi th non-toxigenic [...] of kit performance was done by the [facility] Microbiology Lab prior to clinical use. Lab Interpretation Abnormal (test code = 62011-5) [facility] DIFFICILE GDH [id number] 23:10:55 Test Item Value Reference Range Interpretation Comments CDT TOXIN (test code Negative Negative = [id number]) CDT GDH ANTIGEN Positive Negative A C. difficile present but (test code = toxin not detec hernandez. 4896746301) Indicates colon ization with non-toxige luis antonio [...] of kit performance was done by the [facility] MicrobiologyLab prior to clinical use.POCT-GLUCOSE [id number] 21:40:07 Test Item Value Reference Range Interpretation Comments POC-GLUCOSE METER 144 mg/dL 70-110 H : TESTED A T [facility] ([employer] (test code = [facility], 153) 09370: Printed Circuit Boards Inspector/Techni dakota ID = [id number] for ABE TEJADA POCT-GLUCOSE [id number] 19:13:38 Test Item Value Reference Range Interpretation Comments POC-GLUCOSE METER 71 mg/dL 70-110 : TESTED A T [facility] 6720 ([employer] (test code = [facility], 153) 57081: Printed Circuit Boards Inspector/Techni dakota ID = [id number] for MASON URIOSTEGUI POCT-GLUCOSE [id number] 17:28:46 Test Item Value Reference Range Interpretation Comments POC-GLUCOSE METER 156 mg/dL 70-110 H : TESTED A T [facility] 6720 (BEAKER) (test code = [place], 1538) 93120: Printed Circuit Boards Inspector/Techni dakota ID = [id number] for MASON LINK [id number] 17:03:09 Test Item Value Reference Range Interpretation Comments MAGNESIUM (BEAKER) (test code = 1.3 mg/dL 1.6-2.6 L 627) Printed Circuit Boards Inspector ID - ADMINBASIC METABOLIC [id number] 17:03:08 Test Item Value Reference Range Interpretation [...] S NOT APPLICABLE FOR DIALYSIS PATIEN TS. Printed Circuit Boards Inspector ID - ADMINVenous doppler leg, [id number] 16:49:56Ejection FractionSLEH ECHO HEARTLAB MKCKESSON [facility] Center[facility], [id number] 16:49:56Ejection FractionSLEH ECHO HEARTLAB MKCKESSON [facility] CenterVen[facility] leg, [id number] 16:49:56Ejection FractionSLEH ECHO HEARTLAB MKCKESSON [facility] CenterVen[facility] do[facility] leg, [id number] 16:49:56Ejection FractionSLEH ECHO HEARTLAB MKCKESSON [facility] CenterVen[facility] do[facility] leg, left 2021-09-15 16:49:56Ejection FractionSLEH ECHO HEARTLAB MKCKESSON [facility] CenterVen[facility] leg, [id number] 16:49:56Ejection FractionSLEH ECHO HEARTLAB MKCKESSON [facility] CenterVenous doppler leg, [id number] 16:49:56Ejection FractionSLEH ECHO HEARTLAB [facility] CenterBLOOD [id number] 12:01:39 Test Item Value Reference Range Interpretation Comments CULTURE (BEAKER) (test No growth in 5 days code = 1095) POCT-GLUCOSE [id number] 11:07:13 Test Item Value Reference Range Interpretation Comments POC-GLUCOSE METER 173 mg/dL 70-110 H : [facility] (BEAKER) (test code = [place], 1538) 642[address]: Printed Circuit Boards Inspector/Techni dakota ID = [id number] for MASON LINK [id number] 08:10:09 Test Item Value Reference Range Interpretation Comments MAGNESIUM (BEAKER) (test code = 1.3 mg/dL 1.6-2.6 L 627) Printed Circuit Boards Inspector ID - DBCOMPREHENSIVE METABOLIC [id number] 08:10:08 Test Item Value Reference Range Interpretation [...] S NOT APPLICABLE FOR DIALYSIS PATIEN TS. Printed Circuit Boards Inspector ID - DBCBC W/PLT COUNT & AUTO [id number] 07:40:05 Test Item Value Reference Range Interpretation [...] H PERCENT (BEAKER) (test code = 2801) [id number] 06:53:41 Test Item Value Reference Range Interpretation Comments FERRITIN (BEAKER) (test code = 1099.45 ng/mL 5.00-275.00 H 361) Printed Circuit Boards Inspector ID - SHREE WPOCT-GLUCOSE [id number] 21:23:35 Test Item Value Reference Range Interpretation Comments POC-GLUCOSE METER 196 mg/dL 70-110 H : TESTED A T [facility] 6720 (BEAKER) (test code = [facility], 1538) 48724: Printed Circuit Boards Inspector/Techni dakota ID = [id number] for Cherry Morrissey POCT-GLUCOSE [id number] 18:12:17 Test Item Value Reference Range Interpretation Comments POC-GLUCOSE METER 240 mg/dL 70-110 H : TESTED A T [facility] 6720 (BEAKER) (test code [facility], = 1538) 01902: Printed Circuit Boards Inspector/Techni dakota ID = [id number] for SD GALLO [id number] 16:01:42 Test Item Value Reference Range Interpretation Comments FERRITIN (BEAKER) (test code = 1526.03 ng/mL 5.00-275.00 H 361) Printed Circuit Boards Inspector ID - DBHEPATIC FUNCTION [id number] 14:17:51 Test Item Value Reference Range Interpretation [...] (test code = 45 U/L 6-55 347) Printed Circuit Boards Inspector ID - BSPOCT-GLUCOSE [id number] 12:52:27 Test Item Value Reference Range Interpretation Comments POC-GLUCOSE METER 165 mg/dL 70-110 H : TESTED A T [facility] 6720 (BEAKER) (test code [facility], = 1538) 15618: Printed Circuit Boards Inspector/Techni dakota ID = [id number] for RITESHAngela HUGO Villarreal MARCO ASD BASIC METABOLIC [id number] 12:24:38 Test Item Value Reference Range Interpretation [...] S NOT APPLICABLE FOR DIALYSIS PATIEN TS. Printed Circuit Boards Inspector ID - BSOperator ID - [id number] 12:24:33 Test Item Value Reference Range Interpretation Comments MAGNESIUM (BEAKER) (test code = 1.3 mg/dL 1.6-2.6 L 627) Printed Circuit Boards Inspector ID - BSOperator ID - BSPOCT-GLUCOSE [id number] 08:43:31 Test Item Value Reference Range Interpretation Comments POC-GLUCOSE METER 83 mg/dL 70-110 : TESTED A T [facility] 6720 (BEAKER) (test code = [facility], 153) 87109: Printed Circuit Boards Inspector/Techni dakota ID = [id number] for SD GALLO POCT-GLUCOSE [id number] 22:05:41 Test Item Value Reference Range Interpretation Comments POC-GLUCOSE METER 190 mg/dL 70-110 H : TESTED A T [facility] 6720 (BEAKER) (test code = [facility], 1538) 09174: Printed Circuit Boards Inspector/Techni dakota ID = [id number] for SA RICH, ABE POCT-GLUCOSE [id number] 16:33:29 Test Item Value Reference Range Interpretation Comments POC-GLUCOSE METER 221 mg/dL 70-110 H : TESTED A T [facility] 6720 (BEAKER) (test code = [facility], 1538) 66665: Printed Circuit Boards Inspector/Techni dakota ID = [id number] for Co ok, Susanna POCT-GLUCOSE [id number] 12:08:57 Test Item Value Reference Range Interpretation Comments POC-GLUCOSE METER 127 mg/dL 70-110 H : TESTED A T [facility] 6720 (BEAKER) (test code = [facility], 1538) 09582: Printed Circuit Boards Inspector/Techni dakota ID = [id number] for Co [place], Susanna POCT-GLUCOSE [id number] 09:48:13 Test Item Value Reference Range Interpretation Comments POC-GLUCOSE METER 99 mg/dL 70-110 : TESTED A T [facility] 6720 (BEAKER) (test code = [facility], 153) 14623: Printed Circuit Boards Inspector/Techni dakota ID = [id number] for SUMEET EMILE KAMARL HEMOGLOBIN [id number] 09:05:11 Test Item Value Reference Range Interpretation Comments HEMOGLOBIN A1C 6.1 % See_Comment H [Automated m essage] ELECTROPHORESIS (AKER) The system which (test code = 3811) generated this result transmitted ref erence range: <=5.6%. The reference range was not used to int erpret this result as normal/abnormal . "The A1c is measured using a [facility]-certified method. HbA1c value equal to or greater than 6.5% as thediagnosis cutoff for diabetes. An HbA1c value of 5.7- 6.4% indicates increased risk for diabetes (prediabetes)."Printed Circuit Boards Inspector ID - ADM COMPREHENSIVE METABOLIC [id number] 06:09:47 Test Item Value Reference Range Interpretation [...] S NOT APPLICABLE FOR DIALYSIS PATIEN TS. Printed Circuit Boards Inspector ID - [id number] 05:58:32 Test Item Value Reference Range Interpretation Comments MAGNESIUM (BEAKER) (test code = 1.3 mg/dL 1.6-2.6 L 627) Printed Circuit Boards Inspector ID - [id number] 05:58:32 Test Item Value Reference Range Interpretation Comments PHOSPHORUS (BEAKER) (test code = 2.8 mg/dL 2.3-4.7 604) Printed Circuit Boards Inspector ID - BSCBC W/PLT COUNT & AUTO [id number] 05:24:08 Test Item Value Reference Range Interpretation [...] PERCENT (BEAKER) (test code = 2801) POCT-GLUCOSE [id number] 21:20:25 Test Item Value Reference Range Interpretation Comments POC-GLUCOSE METER 186 mg/dL 70-110 H : TESTED A T [facility] (BEAKER) (test code = [place], 1538) 25427: Printed Circuit Boards Inspector/Techni dakota ID = [id number] for JUAN JOSÉ GIRON [id number] 18:54:47 Test Item Value Reference Range Interpretation Comments FERRITIN (BEAKER) (test code = 1911.44 ng/mL 5.00-275.00 H 361) Printed Circuit Boards Inspector ID - BSCOMPREHENSIVE METABOLIC [id number] 18:12:55 Test Item Value Reference Range Interpretation [...] S NOT APPLICABLE FOR DIALYSIS PATIEN TS. Printed Circuit Boards Inspector ID - [id number] 18:12:55 Test Item Value Reference Range Interpretation Comments MAGNESIUM (BEAKER) (test code = 1.4 mg/dL 1.6-2.6 L 627) Printed Circuit Boards Inspector ID - [id number] 18:12:55 Test Item Value Reference Range Interpretation Comments PHOSPHORUS (BEAKER) (test code = 3.0 mg/dL 2.3-4.7 604) Printed Circuit Boards Inspector ID - BSCOMPLEMENT COMPONENT [id number] 18:09:15 Test Item Value Reference Range Interpretation Comments C4 COMPLEMENT (BEAKER) (test code = 4 mg/dL 15-57 L 394) Printed Circuit Boards Inspector ID - BSCOMPLEMENT COMPONENT [id number] 18:09:15 Test Item Value Reference Range Interpretation Comments C3 COMPLEMENT (BEAKER) (test code = 31 mg/dL 82-193 L 393) Printed Circuit Boards Inspector ID - BSCBC W/PLT COUNT & AUTO [id number] 17:46:55 Test Item Value Reference Range Interpretation [...] PERCENT (BEAKER) (test code = 2801) POCT-GLUCOSE [id number] 17:32:52 Test Item Value Reference Range Interpretation Comments POC-GLUCOSE METER 216 mg/dL 70-110 H : TESTED A T [facility] 6720 (BEAKER) (test code = [place], 1538) 48322: Printed Circuit Boards Inspector/Techni dakota ID = [id number] for Je ssie, Kevin RAD, SHOULDER, COMPLETE (MIN 2 VIEWS), [id number] 14:45:00Reason for exam:- >oysterman steroid use, eval AVN [facility] : 2000 Sex: MFINAL REPORT CLINICAL HISTORY: oysterman steroid use, 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 There is no fracture or dislocation. Signed: Darcie Williamson [facility] Verified Date/Time: 09/12/2021 14:45:48 Reading Location: [facility] Radiology Reading Room RAD, SHOULDER, COMPLETE (MIN 2 VIEWS), [id number] 14:45:00Reason for exam:->oysterman steroid use, eval [facility] : 2000 Sex: MFINAL REPORT CLINICAL HISTORY: oysterman steroid use, 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 There is no fracture or dislocation. Signed: Darcie Williamson Verified Date/Time: 09/12/2021 14:45:48 Reading Location: [facility] Radiology Reading Room RAD, HIPS, 2 VIEWS, [id number] 14:29:00Reason for exam:->oysterman steroid use, eval AVN [facility] : 2000 Sex: MFINAL REPORT CLINICAL HISTORY: custodial steroid use, eval AVN TECHNIQUE: 2 views of the bilateral hips COMPARISON: None IMPRESSION: There is bilateral hip joint space narrowing. Subtle sclerosis and flattening of the left femoral head is suspected, possibly representing avascular necrosis given the clinical history. The right femoral head contour appears preserved. Signed: Darcie Williamson Verified Date/Time: 09/12/2021 14:29:16 Reading Location: [facility] Radiology Reading Room POCT-GLUCOSE [id number] 11:50:18 Test Item Value Reference Range Interpretation Comments POC-GLUCOSE METER 129 mg/dL 70-110 H : TESTED A T [facility] 6720 (BEAKER) (test code = [place], 1538) 41627: Printed Circuit Boards Inspector/Techni dakota ID = [id number] for Kevin Smith RAD, HAND, 3 VIEWS, [id number] 11:47:00Reason for exam:->rheumatoid arthritis[facility] : 2000 [...] MDReport Verified Date/Time: 09/12/2021 11:47:37 Reading Location: [facility] Radiology Reading Room Electronically signed by: DARCIE WILLIAMSON M.D. on 022 11:47 AMRAD, HAND, 3 VIEWS, [id number] 11:47:00Reason for exam:- >rheumatoid arthritis [facility] : 2000 [...] MDReport Verified Date/Time: 09/12/2021 11:47:37 Reading Location: [facility] Radiology Reading Room Electronically signed by: DARCIE WILLIAMSON M.D. on 022 11:47 AMPOCT-GLUCOSE [id number] 10:21:03 Test Item Value Reference Range Interpretation Comments POC-GLUCOSE METER 88 mg/dL 70-110 : TESTED A T [facility] 6720 ([employer] (test code = [facility], 1538) 83904: Printed Circuit Boards Inspector/Techni dakota ID = [id number] for Destiny ie, Kevin PROTEIN, RANDOM [id number] 06:25:49 Test Item Value Reference Range Interpretation Comments PROTEIN, URINE (BEAKER) (test code 177 mg/dL 0-14 H = 1569) Printed Circuit Boards Inspector ID - DBCREATININE, RANDOM [id number] 06:25:48 Test Item Value Reference Range Interpretation Comments CREATININE URINE (BEAKER) (test 106.5 mg/dL code = 375) Reference Range: No NormalsOperator ID - DBPOCT-GLUCOSE [id number] 22:19:10 Test Item Value Reference Range Interpretation Comments POC-GLUCOSE METER 219 mg/dL 70-110 H : TESTED A T [facility] 6720 ([employer] (test code = [facility] [employer] [facility], 1538) 42959: Printed Circuit Boards Inspector/Techni dakota ID = [id number] for Cherry Morrissey POCT-GLUCOSE [id number] 20:21:14 Test Item Value Reference Range Interpretation Comments POC-GLUCOSE METER 257 mg/dL 70-110 H : TESTED A T [facility] 6720 (GENEVA) (test code = [place], 1538) 48737: Printed Circuit Boards Inspector/Techni dakota ID = [id number] for Deborah Martel CT, [id number] 16:58:00Unlisted Reason for Exam - Click Yes and Enter Reason Below->Noeval prior pancreatitis for further necrosis or abscess, worsening leukocytosis and tachycardiaIs this for enterography?->NoWill this procedure require oral contrast?->No [facility] : 2000 [...] Felicity Novak Verified Date/Time: 09/11/2021 16:58:30 -GLUCOSE [id number] 11:46:33 Test Item Value Reference Range Interpretation Comments POC-GLUCOSE METER 277 mg/dL 70-110 H : TESTED A T [facility] 6720 (BEAKER) (test code = [place] [facility], 1538) 27433: Printed Circuit Boards Inspector/Techni dakota ID = [id number] for JO MILLER COMPREHENSIVE METABOLIC [id number] 10:25:23 Test Item Value Reference Range Interpretation [...] S NOT APPLICABLE FOR DIALYSIS PATIEN TS. Printed Circuit Boards Inspector ID - [id number] 10:13:10 Test Item Value Reference Range Interpretation Comments MAGNESIUM (BEAKER) (test code = 1.9 mg/dL 1.6-2.6 627) Printed Circuit Boards Inspector ID - [id number] 10:13:10 Test Item Value Reference Range Interpretation Comments PHOSPHORUS (BEAKER) (test code = 2.5 mg/dL 2.3-4.7 604) Printed Circuit Boards Inspector ID - DBCBC W/PLT COUNT & AUTO [id number] 10:02:45 Test Item Value Reference Range Interpretation [...] PERCENT (BEAKER) (test code = 2801) POCT-GLUCOSE [id number] 07:31:40 Test Item Value Reference Range Interpretation Comments POC-GLUCOSE METER 310 mg/dL 70-110 H : TESTED A T [facility] 6720 (BEAKER) (test code = [place], 1538) 39156: Printed Circuit Boards Inspector/Techni dakota ID = [id number] for JO MILLER BLOOD [id number] 03:00:54 Test Item Value Reference Range Interpretation Comments CULTURE (BEAKER) (test No growth in 5 days code = 1095) BLOOD [id number] 03:00:53 Test Item Value Reference Range Interpretation Comments CULTURE (BEAKER) (test No growth in 5 days code = 1095) POCT-GLUCOSE [id number] 21:11:52 Test Item Value Reference Range Interpretation Comments POC-GLUCOSE METER 286 mg/dL 70-110 H : TESTED A T [facility] 6720 ([employer]) (test code [facility], = 1538) 04328: Printed Circuit Boards Inspector/Techni dakota ID = [id number] for BERNY SMYTH [id number] 12:52:50 Test Item Value Reference Range Interpretation Comments PROCALCITONIN (LEOAKER) (test code 5.84 ng/mL <0.05 H = 3036) SEPSIS RISK (ng/mL)Low: 0.05-0.50Intermediate: 0.51-2.00High: >=2.01APTT 2021-09-10 12:05:26 Test Item Value Reference Range Interpretation Comments PARTIAL THROMBOPLASTIN TIME 27.5 seconds 22.5-36.0 (LEOAKER) (test code = 760) PROTHROMBIN TIME/[id number] 12:04:41 Test Item Value Reference Range Interpretation Comments PROTIME (GENEVA) 16.4 seconds 11.9-14.2 H (test code = 759) INR (GENEVA) (test 1.34 See_Comment [Automat ed message] code = 370) The system [employer] generated this result transmitted ref erence range: <=5.90. The reference range was not used to int erpret this result as normal/abnormal . RECOMMENDED COUMADIN/WARFARIN INR THERAPY RANGESSTANDARD DOSE: 2.0 - 3.0 Includes: PROPHYLAXIS for venous thrombosis, systemic embolization; TREATMENT for venous thrombosis and/or pulmonary embolus.HIGH RISK: Target INR is 2.5-3.5 for patients with mechanical heart valves.LACTIC ACID, [id number] 11:42:21 Test Item Value Reference Range Interpretation Comments LACTATE BLOOD VENOUS 1.13 mmol/L 0.50-2.20 Specime n slightly (2) (GENEVA) (test hemolyzed code = 2872) Printed Circuit Boards Inspector ID - DBRAD, CHEST, 1 VIEW, NON [id number] 09:41:00Reason for exam:- >eval for pnaShould this be performed at the bedside?->Yes [facility] : 2000 Sex: MFINAL REPORT Chest, one view HISTORY: Evaluate for pneumonia Comparison: 09/07/2021 Findings: Lungs: Mild bilateral interstitial opacities, likely pulmonary venous congestion. Stable bibasilar airspace disease. Heart: Normal in size. Pleura: Moderate right and small left pleural effusions, similar to previous examination. No pneumothorax is apparent. Bones: Unremarkable. Lines/tubes: Previous feeding tube has been removed. Signed: Taz Lunsford [facility] Verified Date/Time: 09/10/2021 09:41:13 Reading Location: [facility] C0[facility] Consult Reading Room (CELLAVISION MANUAL DIFF)2021-09-10 07:30:15 [...] CONCENTRATION Adequate (CELLAVISION)(BEAKER) (test code = 3438) Printed Circuit Boards Inspector ID - [id number] ID - Rebecca Elizondo comments: Slide comments: CBC W/PLT COUNT & AUTO [id number] 07:30:14 Test Item Value Reference Range Interpretation [...] (BEAKER) (test code = 413) COMPREHENSIVE METABOLIC [id number] 05:40:15 Test Item Value Reference Range Interpretation [...] S NOT APPLICABLE FOR DIALYSIS PATIEN TS. Printed Circuit Boards Inspector ID - MARIBEL [id number] 05:38:41 Test Item Value Reference Range Interpretation Comments MAGNESIUM (BEAKER) (test code = 1.5 mg/dL 1.6-2.6 L 627) Printed Circuit Boards Inspector ID - MARIBEL [id number] 05:38:41 Test Item Value Reference Range Interpretation Comments PHOSPHORUS (BEAKER) (test code = 1.7 mg/dL 2.3-4.7 L 604) Printed Circuit Boards Inspector ID - PIAYA LPOCT-GLUCOSE [id number] 21:08:40 Test Item Value Reference Range Interpretation Comments POC-GLUCOSE METER 113 mg/dL 70-110 H : TESTED A T [facility] 6720 (BEAKER) (test code = [facility], 1538) 53357: Printed Circuit Boards Inspector/Techni dakota ID = [id number] for SOMMER LYNN POCT-GLUCOSE [id number] 16:29:13 Test Item Value Reference Range Interpretation Comments POC-GLUCOSE METER 123 mg/dL 70-110 H : TESTED A T [facility] 6720 (BEAKER) (test code = [facility], 1538) [address]: Printed Circuit Boards Inspector/Techni dakota ID = [id number] for MELANI MILLERLENE COMPREHENSIVE METABOLIC [id number] 15:30:31 Test Item Value Reference Range Interpretation [...] S NOT APPLICABLE FOR DIALYSIS PATIEN TS. Printed Circuit Boards Inspector ID - ALVINA M2D Echo W/O Doppler(No Doppler)2021-09-09 14:32:05 Test Item Value Reference Range Interpretation Comments Ejection Fraction Est EF is 55-60% (test code = 2574) Radiology Study observation (narrative) (test code = 45299-0) PXN (test code = Sarah Travis PXN) - 09/09/2021 Transthoracic Echocardiography Report (TTE) Demographics Patient Name YAMILE, Date of Study 09/09/2021 PARNELL Gender Male Visit Number [id number] Race Unknown Room Number C622 Number Date of 2000 Referring Babita Cano Physician Age 21 year(s) Cinder Pit Worker Sandy Wilde, [facility] Interpreting Sarah Travis MD Physician Procedure [...] CO: 6.81 l/min LVOT CI: 3.35 l/min/m^2 [facility] Echo W/O Doppler(No Doppler)2021-09-09 14:32:05 Test Item Value Reference Range Interpretation Comments Ejection Fraction Est EF is 55-60% (test code = 2574) Radiology Study observation (narrative) (test code = 12821-0) PXN (test code = Sarah Travis PXN) - 09/09/2021 Transthoracic Echocardiography Report (TTE) Demographics Patient Name YAMILE, Date of Study 09/09/2021 PARNELL Gender Male Visit Number [id number] Race Unknown Room Number C622 Number Date of 2000 Referring Babita Cano Physician Age 21 year(s) Cinder Pit Worker Sandy Wilde, [facility] Interpreting Sarah Travis MD Physician Procedure [...] CO: 6.81 l/min LVOT CI: 3.35 l/min/m^2 [facility] Echo W/O Doppler(No Doppler)2021-09-09 14:32:05 Test Item Value Reference Range Interpretation Comments Ejection Fraction Est EF is 55-60% (test code = 2574) Radiology Study observation (narrative) (test code = 82103-2) PXN (test code = Sarah Travis PXN) - 09/09/2021 Transthoracic Echocardiography Report (TTE) Demographics Patient Name YAMILE, Date of Study 09/09/2021 PARNELL Gender Male Visit Number [id number] Race Unknown Room Number C622 Number Date of 2000 Referring Babita Cano Physician Age 21 year(s) Cinder Pit Worker Sandy Wilde, [facility] Interpreting Sarah Travis MD Physician Procedure [...] CO: 6.81 l/min LVOT CI: 3.35 l/min/m^2 [facility] Echo W/O Doppler(No Doppler)2021-09-09 14:32:05 Test Item Value Reference Range Interpretation Comments Ejection Fraction Est EF is 55-60% (test code = 2574) Radiology Study observation (narrative) (test code = 25532-8) RIVASN (test code = Sarah Travis PXN) - 09/09/2021 Transthoracic Echocardiography Report (TTE) Demographics Patient Name YAMILE, Date of Study 09/09/2021 PARNELL Gender Male Visit Number [id number] Race Unknown Room Number C622 Number Date of 2000 Referring Babita Cano Physician Age 21 year(s) Cinder Pit Worker Sandy Wilde, [facility] Interpreting Sarah Travis MD Physician Procedure [...] CO: 6.81 l/min LVOT CI: 3.35 l/min/m^2 [facility] Echo W/O Doppler(No Doppler)2021-09-09 14:32:05 Test Item Value Reference Range Interpretation Comments Ejection Fraction Est EF is 55-60% (test code = 2574) Radiology Study observation (narrative) (test code = 86026-0) PXN (test code = Sarah Travis PXN) - 09/09/2021 Transthoracic Echocardiography Report (TTE) Demographics Patient Name YAMILE, Date of Study 09/09/2021 VANGIE Gender Male Visit Number [id number] Race Unknown Room Number C622 Number Date of 2000 Referring Babita Cano Physician Age 21 year(s) Cinder Pit Worker XAVIER Elizabeth Interpreting Sarah Travis MD Physician [...] CO: 6.81 l/min LVOT CI: 3.35 l/min/m^2 [facility] Echo W/O Doppler(No Doppler)2021-09-09 14:32:05 Test Item Value Reference Range Interpretation Comments Ejection Fraction Est EF is 55-60% (test code = 2574) Radiology Study observation (narrative) (test code = 13284-5) PXN (test code = Sarah Travis PXN) - 09/09/2021 Transthoracic Echocardiography Report (TTE) Demographics Patient Name YAMILE, Date of Study 09/09/2021 VANGIE ISAAC [id number] Gender Male Visit Number [id number] Race Unknown Room Number C622 Number Date of 2000 Referring Babita Cano Physician Age 21 year(s) Cinder Pit Worker XAVIER Elizabeth Interpreting Sarah Travis MD Physician [...] CO: 6.81 l/min LVOT CI: 3.35 l/min/m^2 [facility] Echo W/O Doppler(No Doppler)2021-09-09 14:32:05 Test Item Value Reference Range Interpretation Comments Ejection Fraction Est EF is 55-60% (test code = 2574) Radiology Study observation (narrative) (test code = 44509-7) PXN (test code = Lotus, LUIS Prabhakar MD - 09/09/2021 Transthoracic Echocardiography Report (TTE) Demographics Patient Name YAMILE, Date of Study 09/09/2021 VANGIE Gender Male Visit Number [id number] Race Unknown Room Number C622 Number Date of 2000 Referring Babita Cano Physician Age 21 year(s) Cinder Pit Worker Sandy Wilde, [facility] Interpreting Sarah Travis MD Physician Procedure [...] CO: 6.81 l/min LVOT CI: 3.35 l/min/m^[facility] [id number] 11:38:39 Test Item Value Reference Range Interpretation Comments POC-GLUCOSE METER 137 mg/dL 70-110 H : TESTED A T [facility] 6720 (BEAKER) (test code = [facility], 1538) 03058: Printed Circuit Boards Inspector/Techni dakota ID = [id number] for JO MILLER POCT-GLUCOSE [id number] 06:55:56 Test Item Value Reference Range Interpretation Comments POC-GLUCOSE METER 151 mg/dL 70-110 H : TESTED A T [facility] 6720 (BEAKER) (test code = [facility], 1538) 96375: Printed Circuit Boards Inspector/Techni dakota ID = [id number] for MA INDONESIAN, VALSA POCT-GLUCOSE [id number] 21:19:46 Test Item Value Reference Range Interpretation Comments POC-GLUCOSE METER 174 mg/dL 70-110 H : TESTED A T [facility] 6720 (BEAKER) (test code = [facility], 1538) 15176: Printed Circuit Boards Inspector/Techni dakota ID = [id number] for MA INDONESIAN, VALSA POCT-GLUCOSE [id number] 19:52:47 Test Item Value Reference Range Interpretation Comments POC-GLUCOSE METER 173 mg/dL 70-110 H : TESTED A T [facility] 6720 (BEAKER) (test code = [facility], 1538) 86576: Printed Circuit Boards Inspector/Techni dakota ID = [id number] for FRANC JALEEL MILES, JENNIFER MRSA [id number] 15:07:47 Test Item Value Reference Range Interpretation Comments Result (test code = 6463-4) [facility] [id number] 15:07:47 Test Item Value Reference Range Interpretation Comments Result (test code = 6463-4) No [facility] [id number] 15:07:47 Test Item Value Reference Range Interpretation Comments Result (test code = 6463-4) No [facility] [id number] 15:07:47 Test Item Value Reference Range Interpretation Comments Result (test code = 6463-4) No [facility] [id number] 15:07:47 Test Item Value Reference Range Interpretation Comments Result (test code = 6463-4) No [facility] [id number] 15:07:47 Test Item Value Reference Range Interpretation Comments Result (test code = 6463-4) No [facility] [id number] 15:07:47 Test Item Value Reference Range Interpretation Comments Result (test code = 6463-4) No [facility] isolated [facility] [id number] 15:07:47 Test Item Value Reference Range Interpretation Comments CULTURE ([facility]) (test code No MRSA isolated = 1095) POCT-GLUCOSE [id number] 11:36:26 Test Item Value Reference Range Interpretation Comments POC-GLUCOSE METER 268 mg/dL 70-110 H : TESTED A T [facility] 6720 ([facility]) (test code = [facility], 1538) 90880: Printed Circuit Boards Inspector/Techni dakota ID = [id number] for JENNIFER ARCINIEGA POCT-GLUCOSE [id number] 09:21:21 Test Item Value Reference Range Interpretation Comments POC-GLUCOSE METER 283 mg/dL 70-110 H : TESTED A T [facility] 6720 ([facility]) (test code = [facility], 1538) 11020: Printed Circuit Boards Inspector/Techni dakota ID = [id number] for JENNIFER ARCINIEGA ANTI-MITOCHONDRIAL AB, REFLEX TO [id number] 07:58:16 Test Item Value Reference Range Interpretation Comments SCAN RESULT (test code = 3558283) POCT-GLUCOSE [id number] 05:15:53 Test Item Value Reference Range Interpretation Comments POC-GLUCOSE METER 266 mg/dL 70-110 H : TESTED A T [facility] 6720 ([employer] (test code = [facility], 1538) 77192: Printed Circuit Boards Inspector/Techni dakota ID = [id number] for KAVITHA ESCOBAR COMPREHENSIVE METABOLIC [id number] 04:59:08 Test Item Value Reference Range Interpretation [...] S NOT APPLICABLE FOR DIALYSIS PATIEN TS. Printed Circuit Boards Inspector ID - ALVINA [id number] 04:55:48 Test Item Value Reference Range Interpretation Comments MAGNESIUM (BEAKER) (test code = 1.7 mg/dL 1.6-2.6 627) Printed Circuit Boards Inspector ID - ALVINA [id number] 04:55:48 Test Item Value Reference Range Interpretation Comments PHOSPHORUS (BEAKER) (test code = 1.6 mg/dL 2.3-4.7 L 604) Printed Circuit Boards Inspector ID - ALVINA MCBC W/PLT COUNT & AUTO [id number] 04:52:53 Test Item Value Reference Range Interpretation [...] PERCENT (BEAKER) (test code = 2801) POCT-GLUCOSE [id number] 23:21:41 Test Item Value Reference Range Interpretation Comments POC-GLUCOSE METER 268 mg/dL 70-110 H : TESTED A T [facility] 6720 (BEAKER) (test code = [place] [facility], 1538) 22231: Printed Circuit Boards Inspector/Techni dakota ID = [id number] for KAVITHA ESCOBAR POCT-GLUCOSE [id number] 18:55:01 Test Item Value Reference Range Interpretation Comments POC-GLUCOSE METER 240 mg/dL 70-110 H : TESTED A T [facility] 6720 (BEAKER) (test code = [place] [facility], 1538) 87647: Printed Circuit Boards Inspector/Techni dakota ID = [id number] for As Isiah mckeon PERIPHERAL BLOOD SMEAR - PATHOLOGIST [id number] 16:19:01 Test Item Value Reference Range Interpretation [...] MORPHOLOGY No Satellitosis (BEAKER) (test code = 844835) PLT MORPHOLOGY See comment Decreased in number (BEAKER) (test with normal code = 069956) morphology. R are to Occasional larg e forms. [facility]-PATHOLOGIST- Yvan Campoverde MD 6112 (BEAKER) (electronic (test code = signature) 2849) Urinalysis w/Microscopic + Reflex to [id number] 14:42:51 Test Item Value Reference Range Interpretation Comments Color, UA (test code Yellow = 5778-6) Clarity, UA (test Clear code = 5767-9) Specific [place], UA 1.025 1.001-1.035 (test code = 5811-5) pH, UA (test code = 6.0 5.0-8.0 5803-2) Protein, UA (test 100 mg/dL Negative A code = 77805-1) Glucose, UA (test 70 mg/dL Negative A code = 365) Ketones, UA (test 40 mg/dL Negative A code = 2514-8) Bilirubin, UA (test Negative Negative code = 23920-6) Blood, UA (test code Large Negative A = 29046-2) Nitrite, UA (test Negative Negative code = 5802-4) Leukocytes, UA (test Negative Negative code = 5799-2) Urobilinogen, UA 0.2 mg/dL 0.2-1.0 (test code = 64544-9) RBC, UA (test code = 30 See_Comment [Autom ated 83297-6) message] The system which generated this result [...] Bacteria, UA (test None Seen code = 30158-9) Mucus (test code = Few 8247-9) Hyaline Casts, UA 1 See_Comment [Automate d (test code = 31431-0) messag e] The system which generated this [...] Crystals, Urine (test None Seen code = 83004-0) Specimen Source (test code = 2795) IDALIA (test code = IDALIA) Printed Circuit Boards Inspector ID - [auto]Printed Circuit Boards Inspector ID - tech Lab Interpretation Abnormal (test code = 70039-2) [facility] Reflex [facility] Culture 2021-09-07 14:42:51 Test Item Value Reference Range Interpretation Comments Color, UA (test code Yellow = 5778-6) Clarity, UA (test Clear code = 5767-9) Specific [place], UA 1.025 1.001-1.035 (test code = 5811-5) pH, UA (test code = 6.0 5.0-8.0 5803-2) Protein, UA (test 100 mg/dL Negative A code = 14407-1) Glucose, UA (test 70 mg/dL Negative A code = 365) Ketones, UA (test 40 mg/dL Negative A code = 2514-8) Bilirubin, UA (test Negative Negative code = 44714-7) Blood, UA (test code Large Negative A = 33165-4) Nitrite, UA (test Negative Negative code = 5802-4) Leukocytes, UA (test Negative Negative code = 5799-2) Urobilinogen, UA 0.2 mg/dL 0.2-1.0 (test code = 68191-2) RBC, UA (test code = 30 See_Comment [Autom ated 43064-3) message] The system which generated this result [...] Bacteria, UA (test None Seen code = 35163-2) Mucus (test code = Few 8247-9) Hyaline Casts, UA 1 See_Comment [Automate d (test code = 78602-3) messag e] The system which generated this [...] Crystals, Urine (test None Seen code = 44185-8) Specimen Source (test code = 2795) IDALIA (test code = IDALIA) Printed Circuit Boards Inspector ID - [auto]Printed Circuit Boards Inspector ID - tech Lab Interpretation Abnormal (test code = 88584-5) [facility] + Reflex to Culture 2021-09-07 14:42:51 Test Item Value Reference Range Interpretation Comments Color, UA (test code Yellow = 5778-6) Clarity, UA (test Clear code = 5767-9) Specific [place], UA 1.025 1.001-1.035 (test code = 5811-5) pH, UA (test code = 6.0 5.0-8.0 5803-2) Protein, UA (test 100 mg/dL Negative A code = 34061-0) Glucose, UA (test 70 mg/dL Negative A code = 365) Ketones, UA (test 40 mg/dL Negative A code = 2514-8) Bilirubin, UA (test Negative Negative code = 22032-9) Blood, UA (test code Large Negative A = 79980-9) Nitrite, UA (test Negative Negative code = 5802-4) Leukocytes, UA (test Negative Negative code = 5799-2) Urobilinogen, UA 0.2 mg/dL 0.2-1.0 (test code = 14010-1) RBC, UA (test code = 30 See_Comment [Autom ated 55155-0) message] The system which generated this result [...] Bacteria, UA (test None Seen code = 06793-2) Mucus (test code = Few 8247-9) Hyaline Casts, UA 1 See_Comment [Automate d (test code = 42568-9) messag e] The system which generated this [...] Crystals, Urine (test None Seen code = 80716-3) Specimen Source (test code = 2795) IDALIA (test code = IDALIA) Printed [employer] Boards Inspector ID - [auto]Printed Circuit Boards Inspector ID - tech Lab Interpretation Abnormal (test code = 34398-0) [facility] + Reflex to Culture 2021-09-07 14:42:51 Test Item Value Reference Range Interpretation Comments Color, UA (test code Yellow = 5778-6) Clarity, UA (test Clear code = 5767-9) Specific [place], UA 1.025 1.001-1.035 (test code = 5811-5) pH, UA (test code = 6.0 5.0-8.0 5803-2) Protein, UA (test 100 mg/dL Negative A code = 02093-0) Glucose, UA (test 70 mg/dL Negative A code = 365) Ketones, UA (test 40 mg/dL Negative A code = 2514-8) Bilirubin, UA (test Negative Negative code = 99818-8) Blood, UA (test code Large Negative A = 94745-8) Nitrite, UA (test Negative Negative code = 5802-4) Leukocytes, UA (test Negative Negative code = 5799-2) Urobilinogen, UA 0.2 mg/dL 0.2-1.0 (test code = 99189-7) RBC, UA (test code = 30 See_Comment [Autom ated 67987-1) message] The system which generated this result [...] Bacteria, UA (test None Seen code = 53747-0) Mucus (test code = Few 8247-9) Hyaline Casts, UA 1 See_Comment [Automate d (test code = 00045-5) messag e] The system which generated this [...] Crystals, Urine (test None Seen code = 88774-7) Specimen Source (test code = 2795) IDALIA (test code = IDALIA) [employer]ed [employer] Boards Inspector ID - [auto]Printed Circuit Boards Inspector ID - tech Lab Interpretation Abnormal (test code = 96605-1) [facility] + Reflex to Culture 2021-09-07 14:42:51 Test Item Value Reference Range Interpretation Comments Color, UA (test code Yellow = 5778-6) Clarity, UA (test Clear code = 5767-9) Specific [place], UA 1.025 1.001-1.035 (test code = 5811-5) pH, UA (test code = 6.0 5.0-8.0 5803-2) Protein, UA (test 100 mg/dL Negative A code = 31238-9) Glucose, UA (test 70 mg/dL Negative A code = 365) Ketones, UA (test 40 mg/dL Negative A code = 2514-8) Bilirubin, UA (test Negative Negative code = 61014-2) Blood, UA (test code Large Negative A = 30486-6) Nitrite, UA (test Negative Negative code = 5802-4) Leukocytes, UA (test Negative Negative code = 5799-2) Urobilinogen, UA 0.2 mg/dL 0.2-1.0 (test code = 12907-4) RBC, UA (test code = 30 See_Comment [Autom ated 37457-4) message] The system which generated this result [...] Bacteria, UA (test None Seen code = 67129-0) Mucus (test code = Few 8247-9) Hyaline Casts, UA 1 See_Comment [Automate d (test code = 48852-3) messag e] The system which generated this [...] Crystals, Urine (test None Seen code = 24459-9) Specimen Source (test code = 2795) IDALIA (test code = IDALIA) [employer]ed [employer] Boards Inspector ID - [auto]Printed Circuit Boards Inspector ID - tech Lab Interpretation Abnormal (test code = 05878-6) [facility] + Reflex to Culture 2021-09-07 14:42:51 Test Item Value Reference Range Interpretation Comments Color, UA (test code Yellow = 5778-6) Clarity, UA (test Clear code = 5767-9) Specific [place], UA 1.025 1.001-1.035 (test code = 5811-5) pH, UA (test code = 6.0 5.0-8.0 5803-2) Protein, UA (test 100 mg/dL Negative A code = 87149-4) Glucose, UA (test 70 mg/dL Negative A code = 365) Ketones, UA (test 40 mg/dL Negative A code = 2514-8) Bilirubin, UA (test Negative Negative code = 27280-7) Blood, UA (test code Large Negative A = 54675-0) Nitrite, UA (test Negative Negative code = 5802-4) Leukocytes, UA (test Negative Negative code = 5799-2) Urobilinogen, UA 0.2 mg/dL 0.2-1.0 (test code = 81684-3) RBC, UA (test code = 30 See_Comment [Autom ated 58207-6) message] The system which generated this result [...] Bacteria, UA (test None Seen code = 20033-1) Mucus (test code = Few 8247-9) Hyaline Casts, UA 1 See_Comment [Automate d (test code = 85622-9) messag e] The system which generated this [...] Crystals, Urine (test None Seen code = 63616-6) Specimen Source (test code = 2795) IDALIA (test code = IDALIA) [employer] Boards Inspector ID - [auto]Printed Circuit Boards Inspector ID - tech Lab Interpretation Abnormal (test code = 22255-4) [facility] + Reflex to Culture 2021-09-07 14:42:51 Test Item Value Reference Range Interpretation Comments Color, UA (test code Yellow = 5778-6) Clarity, UA (test Clear code = 5767-9) Specific [place], UA 1.025 1.001-1.035 (test code = 5811-5) pH, UA (test code = 6.0 5.0-8.0 5803-2) Protein, UA (test 100 mg/dL Negative A code = 70094-9) Glucose, UA (test 70 mg/dL Negative A code = 365) Ketones, UA (test 40 mg/dL Negative A code = 2514-8) Bilirubin, UA (test Negative Negative code = 62300-7) Blood, UA (test code Large Negative A = 76639-5) Nitrite, UA (test Negative Negative code = 5802-4) Leukocytes, UA (test Negative Negative code = 5799-2) Urobilinogen, UA 0.2 mg/dL 0.2-1.0 (test code = 12555-3) RBC, UA (test code = 30 See_Comment [Autom ated 68323-7) message] The system which generated this result [...] Bacteria, UA (test None Seen code = 55141-4) Mucus (test code = Few 8247-9) Hyaline Casts, UA 1 See_Comment [Automate d (test code = 70256-3) messag e] The system which generated this [...] Crystals, Urine (test None Seen code = 32699-7) Specimen Source (test code = 2795) IDALIA (test code = IDALIA) [employer] Boards Inspector ID - [auto]Printed Circuit Boards Inspector ID - tech Lab Interpretation Abnormal (test code = 30309-5) [facility] URINE [id number] 14:42:51 Test Item Value Reference Range Interpretation [...] = 1521) SOURCE(BEAKER) (test code = 2795) [employer] Boards Inspector ID - [auto]Printed [employer] Boards Inspector ID - [id number] 13:45:54 Test Item Value Reference Range Interpretation Comments PROCALCITONIN (BEAKER) (test code 41.89 ng/mL <0.05 HH = 3036) SEPSIS RISK (ng/mL)Low: 0.05-0.50Intermediate: 0.51-2.00High: >=2.01 [id number] 13:10:47 Test Item Value Reference Range Interpretation Comments HAPTOGLOBIN (BEAKER) (test code = 367 mg/dL 14-258 H 366) [employer] Boards Inspector ID - BSOperator ID - BSCOMPREHENSIVE METABOLIC [id number] 12:56:57 Test Item Value Reference Range Interpretation [...] S NOT APPLICABLE FOR DIALYSIS PATIEN TS. [employer] Boards Inspector ID - BSHEPATIC FUNCTION [id number] 12:56:40 Test Item Value Reference Range Interpretation [...] Specimen slightly (test code = 347) hemolyzed [employer] Boards Inspector ID - [id number] 12:56:40 Test Item Value Reference Range Interpretation Comments LIPASE (BEAKER) (test code = 749) 132 U/L 8-78 H [employer] Boards Inspector ID - [id number] 12:56:39 Test Item Value Reference Range Interpretation Comments MAGNESIUM (BEAKER) 1.9 mg/dL 1.6-2.6 Specimen slightly (test code = 627) hemolyzed [employer] Boards Inspector ID - [id number] 12:56:39 Test Item Value Reference Range Interpretation Comments PHOSPHORUS (BEAKER) 2.9 mg/dL 2.3-4.7 Specimen slightly (test code = 604) hemolyzed [employer] Boards Inspector ID - BSVANCOMYCIN LEVEL, [id number] 12:51:35 Test Item Value Reference Range Interpretation Comments VANCOMYCIN TROUGH (BEAKER) (test 14.4 ug/mL 10.0-20.0 code = 522) [employer] Boards Inspector ID - [id number] 12:43:54 Test Item Value Reference Range Interpretation Comments FIBRINOGEN LEVEL (BEAKER) (test 715 mg/dl 225-434 H code = 658) HEMOGLOBIN AND [id number] 12:34:38 Test Item Value Reference Range Interpretation Comments HEMOGLOBIN (BEAKER) (test code = 8.0 GM/DL 13.7-17.5 L 410) HEMATOCRIT (BEAKER) (test code = 26.2 % 40.1-51.0 L 411) [employer] Boards Inspector ID - 6000POCT-GLUCOSE [id number] 12:12:10 Test Item Value Reference Range Interpretation Comments POC-GLUCOSE METER 152 mg/dL 70-110 H : TESTED A T [facility] 6720 (BEAKER) (test code = [place], 1538) [address]: Printed Circuit Boards Inspector/Techni dakota ID = [id number] for Patrick Perez ANTI-DNA [id number] 11:19:56 Test Item Value Reference Range Interpretation Comments ANTI-DNA TITER (BEAKER) (test code = :80 1553) DOUBLE-STRANDED DNA (DSDNA) [id number] 11:19:49 Test Item Value Reference Range Interpretation Comments ANTI-DNA DS (BEAKER) (test code = Positive Negative 1055) ANTI-DNA [id number] 11:19:10 Test Item Value Reference Range Interpretation Comments ANTI-DNA TITER (BEAKER) (test code = :80 1553) DOUBLE-STRANDED DNA (DSDNA) [id number] 11:19:04 Test Item Value Reference Range Interpretation Comments ANTI-DNA DS (BEAKER) (test code = Positive Negative 1055) LACTATE DEHYDROGENASE (LDH)2021-09-07 10:00:12 Test Item Value Reference Range Interpretation Comments LACTATE DEHYDROGENASE (BEAKER) (test 723 U/L 125-220 H code = 635) [employer] Boards Inspector ID - BSBILIRUBIN, [id number] 10:00:11 Test Item Value Reference Range Interpretation Comments BILIRUBIN DIRECT (BEAKER) (test 0.8 mg/dL 0.1-0.5 H code = 706) [employer] Boards Inspector ID - BSCBC W/PLT COUNT & AUTO [id number] 08:25:03 Test Item Value Reference Range Interpretation [...] CONCENTRATION Decreased (CELLAVISION)(BEAKER) (test code = 3438) [employer] Boards Inspector ID - [id number] ID - Kyree comments: Slide comments:B-TYPE NATRIURETIC FACTOR (BNP)2021-09-07 06:31:12 Test Item Value Reference Range Interpretation Comments B-TYPE NATRIURETIC PEPTIDE (BEAKER) 269 pg/mL 0-100 H (test code = 700) [employer] Boards Inspector ID - BSLACTIC ACID, [id number] 06:10:21 Test Item Value Reference Range Interpretation Comments LACTATE BLOOD VENOUS (2) (BEAKER) 0.76 mmol/L 0.50-2.20 (test code = 2872) [employer] Boards Inspector ID - [id number]-[id number] 03:08:41 Test Item Value Reference Range Interpretation Comments POC-Glucose (test code = 153 mg/dL 70-110 H : T [facility] CENTER 1855) 6720 [facility], 770 30: Printed Circuit Boards Inspector/Techni dakota ID = [id number] for URCIA, FAMELA Lab Interpretation (test Abnormal code = 92731-4) [facility]CbkjpvCTCO-[id number] 03:08:41 Test Item Value Reference Range Interpretation Comments POC-Hematocrit (test code 21 % 40-50 L : = 1857) Printed Circuit Boards Inspector/Techni dakota ID = [id number] for URCIA, FAMELA Lab Interpretation (test Abnormal code = 49179-9) [facility] CenterPOCT-[id number] 03:08:41 Test Item Value Reference Range Interpretation Comments POC-Glucose (test code = 153 mg/dL 70-110 H : T ESTED AT [facility] 1855) 67[address] [facility], 770 30: Printed Circuit Boards Inspector/Techni dakota ID = [id number] for URCIA, FAMELA Lab Interpretation (test Abnormal code = 47970-8) [facility]-[id number] 03:08:41 Test Item Value Reference Range Interpretation Comments POC-Hematocrit (test code 21 % 40-50 L : = 1857) Printed Circuit Boards Inspector/Techni dakota ID = [id number] for URCIA, FAMELA Lab Interpretation (test Abnormal code = 72062-1) [id number] 03:08:41 Test Item Value Reference Range Interpretation Comments POC-Glucose (test code = 153 mg/dL 70-110 H : T ESTED AT [facility] 1855) [address] [place] [address], 770 30: Printed Circuit Boards Inspector/Techni dakota ID = [id number] for URCIA, FAMELA Lab Interpretation (test Abnormal code = 02439-0) [facility]-[id number] 03:08:41 Test Item Value Reference Range Interpretation Comments POC-Hematocrit (test code 21 % 40-50 L : = 1857) Printed Circuit Boards Inspector/Techni dakota ID = [id number] for URCIA, FAMELA Lab Interpretation (test Abnormal code = 18844-1) [facility] [id number] 03:08:41 Test Item Value Reference Range Interpretation Comments POC-Glucose (test code = 153 mg/dL 70-110 H : T ESTED AT [facility] 1855) [address] [place] [address], 770 30: Printed Circuit Boards Inspector/Techni dakota ID = [id number] for URCIA, FAMELA Lab Interpretation (test Abnormal code = 78421-7) [facility]-[id number] 03:08:41 Test Item Value Reference Range Interpretation Comments POC-Hematocrit (test code 21 % 40-50 L : = 1857) Printed Circuit Boards Inspector/Techni dakota ID = [id number] for URCIA, FAMELA Lab Interpretation (test Abnormal code = 02079-1) [facility] [id number] 03:08:41 Test Item Value Reference Range Interpretation Comments POC-Glucose (test code = 153 mg/dL 70-110 H : T ESTED AT [facility] 1855) [address] [place] [address], 770 30: Printed Circuit Boards Inspector/Techni dakota ID = [id number] for URCIA, FAMELA Lab Interpretation (test Abnormal code = 15547-5) [facility]-[id number] 03:08:41 Test Item Value Reference Range Interpretation Comments POC-Hematocrit (test code 21 % 40-50 L : = 1857) [employer] Circuit Boards Inspector/Techni dakota ID = [id number] for URCIA, FAMELA Lab Interpretation (test Abnormal code = 39913-9) [facility]-[id number] 03:08:41 Test Item Value Reference Range Interpretation Comments POC-Glucose (test code = 153 mg/dL 70-110 H : T ESTED AT [facility] 1855) [address] [place] [address], 770 30: Printed Circuit Boards Inspector/Techni dakota ID = [id number] for URCIA, FAMELA Lab Interpretation (test Abnormal code = 95336-7) [facility]-[id number] 03:08:41 Test Item Value Reference Range Interpretation Comments POC-Hematocrit (test code 21 % 40-50 L : = 1857) [employer] Boards Inspector/Techni dakota ID = [id number] for URCIA, FAMELA Lab Interpretation (test Abnormal code = 19382-6) [facility] [id number] 03:08:41 Test Item Value Reference Range Interpretation Comments POC-Glucose (test code = 153 mg/dL 70-110 H : T ESTED AT [facility] 1855) [address] [place] [address], 770 30: Printed Circuit Boards Inspector/Techni dakota ID = [id number] for URCIA, FAMELA Lab Interpretation (test Abnormal code = 04351-9) [facility]-[id number] 03:08:41 Test Item Value Reference Range Interpretation Comments POC-Hematocrit (test code 21 % 40-50 L : = 1857) [employer] Circuit Boards Inspector/Techni dakota ID = [id number] for URCIA, FAMELA Lab Interpretation (test Abnormal code = 19201-0) [facility]-[id number] 03:08:41 Test Item Value Reference Range Interpretation Comments POC-HEMATOCRIT 21 % 40-50 L : Printed Circuit Boards Inspector/Te chnician ID = (BEAKER) (test code = 642517 for URCIA, FAMELA 1857) HSOJ-[id number] 03:08:41 Test Item Value Reference Range Interpretation Comments POC-GLUCOSE (BEAKER) 153 mg/dL 70-110 H : TESTE D AT [facility] 6720 (test code = 1855) [facility], [address]: Printed Circuit Boards Inspector/Techni dakota ID = [id number] for URCI A, FAMELA NLV-[id number] 03:08:40 Test Item Value Reference Range Interpretation Comments POC-Potassium (test code 3.8 meq/L 3.6-5.5 : T ESTED AT [facility] = 1540) 67[address] [facility], 770 30: Printed Circuit Boards Inspector/Techni dakota ID = [id number] for URCIA, FAMELA Lab Interpretation (test Normal code = 09466-1) [facility]-[id number] 03:08:40 Test Item Value Reference Range Interpretation Comments POC-Hemoglobin (test code 7.1 g/dL 13.0-16.8 L : TESTED AT [facility] = 1856) 67[address] [facility], 770 30: Printed Circuit Boards Inspector/Techni dakota ID = [id number] for URCIA, FAMELA Lab Interpretation (test Abnormal code = 43087-2) [facility]-Jqegysyyj9292-45-78 03:08:40 Test Item Value Reference Range Interpretation Comments POC-Potassium (test code 3.8 meq/L 3.6-5.5 : T ESTED AT [facility] = 1540) [address] [place] [address], 770 30: Printed Circuit Boards Inspector/Techni dakota ID = [id number] for URCIA, FAMELA Lab Interpretation (test Normal code = 12280-9) [facility]-[id number] 03:08:40 Test Item Value Reference Range Interpretation Comments POC-Hemoglobin (test code 7.1 g/dL 13.0-16.8 L : TESTED AT [facility] = 1856) [address] [place] [address], 770 30: Printed Circuit Boards Inspector/Techni dakota ID = [id number] for URCIA, FAMELA Lab Interpretation (test Abnormal code = 14603-0) [facility]-Ctjfpwsgy1019-85-49 03:08:40 Test Item Value Reference Range Interpretation Comments POC-Potassium (test code 3.8 meq/L 3.6-5.5 : T ESTED AT [facility] = 1540) [address] [place] [address], 770 30: Printed Circuit Boards Inspector/Techni dakota ID = [id number] for URCIA, FAMELA Lab Interpretation (test Normal code = 52962-7) [facility]-[id number] 03:08:40 Test Item Value Reference Range Interpretation Comments POC-Hemoglobin (test code 7.1 g/dL 13.0-16.8 L : [facility] = 1856) [address] [place] [address], [facility] 30: Printed Circuit Boards Inspector/Techni dakota ID = [id number] for URCIA, FAMELA Lab Interpretation (test Abnormal code = 59165-4) [facility]-[id number] 03:08:40 Test Item Value Reference Range Interpretation Comments POC-Potassium (test code 3.8 meq/L 3.6-5.5 : T ESTED AT [facility] = 1540) [address] [place] [address], [facility] 30: Printed Circuit Boards Inspector/Techni dakota ID = [id number] for URCIA, FAMELA Lab Interpretation (test Normal code = 55620-7) [facility] [id number] 03:08:40 Test Item Value Reference Range Interpretation Comments POC-Hemoglobin (test code 7.1 g/dL 13.0-16.8 L : TESTED AT [facility] = 1856) [address] [place] [address], [facility] 30: Printed Circuit Boards Inspector/Techni dakota ID = [id number] for URCIA, FAMELA Lab Interpretation (test Abnormal code = 44412-7) [facility]-[id number] 03:08:40 Test Item Value Reference Range Interpretation Comments POC-Potassium (test code 3.8 meq/L 3.6-5.5 : T ESTED AT [facility] = 1540) [address] [place] [address], [facility] 30: Printed Circuit Boards Inspector/Techni dakota ID = [id number] for URCIA, FAMELA Lab Interpretation (test Normal code = 67226-2) [facility]-[id number] 03:08:40 Test Item Value Reference Range Interpretation Comments POC-Hemoglobin (test code 7.1 g/dL 13.0-16.8 L : TESTED AT [facility] = 1856) [address] [place] [address], 770 30: Printed Circuit Boards Inspector/Techni dakota ID = [id number] for URCIA, FAMELA Lab Interpretation (test Abnormal code = 61983-9) [facility]-[id number] 03:08:40 Test Item Value Reference Range Interpretation Comments POC-Potassium (test code 3.8 meq/L 3.6-5.5 : T ESTED AT [facility] = 1540) [address] [place] [address], [facility] 30: Printed Circuit Boards Inspector/Techni dakota ID = [id number] for URCIA, FAMELA Lab Interpretation (test Normal code = 44872-9) [facility]-[id number] 03:08:40 Test Item Value Reference Range Interpretation Comments POC-Hemoglobin (test code 7.1 g/dL 13.0-16.8 L : TESTED AT [facility] = 1856) [address] [place] [address], [facility] 30: Printed Circuit Boards Inspector/Techni dakota ID = [id number] for URCIA, FAMELA Lab Interpretation (test Abnormal code = 95453-3) [facility]-Sprsgjzix9069-46-27 03:08:40 Test Item Value Reference Range Interpretation Comments POC-Potassium (test code 3.8 meq/L 3.6-5.5 : T ESTED AT [facility] = 1540) [address] [place] [address], [facility] 30: Printed Circuit Boards Inspector/Techni dakota ID = [id number] for URCIA, FAMELA Lab Interpretation (test Normal code = 58229-2) [facility]-[id number] 03:08:40 Test Item Value Reference Range Interpretation Comments POC-Hemoglobin (test code 7.1 g/dL 13.0-16.8 L : TESTED AT [facility] = 1856) [address] [place] [address], [facility] 30: Printed Circuit Boards Inspector/Techni dakota ID = [id number] for URCIA, FAMELA Lab Interpretation (test Abnormal code = 23885-7) [facility]-[id number] 03:08:40 Test Item Value Reference Range Interpretation Comments POC-POTASSIUM 3.8 meq/L 3.6-5.5 : TESTED AT [facility] 6720 ([facility]) (test code [place], = 1540) [address]: Printed Circuit Boards Inspector/Techni dakota ID = [id number] for URCI A, FAMELA ZSMA-[id number] 03:08:40 Test Item Value Reference Range Interpretation Comments POC-HEMOGLOBIN 7.1 g/dL 13.0-16.8 L : TESTED AT [facility] 6720 ([facility]) (test code = [place], 1856) [address]: Printed Circuit Boards Inspector/Techni dakota ID = [id number] for URCI A, FAMELA POC-Blood gases, [id number] 03:08:39 Test Item Value Reference Range Interpretation [...] tomated message] code = 1838) The system 10[employer] Software[employer] h generated this result transmit hernandez reference range : 80.0 - 90.0 mm Hg. The reference r colby was not used to interpret this result as normal/abnormal . SO2, Arterial-POC (test 91.0 % 96.0-97.0 L code = 1839) HCO3, Arterilal-POC 22.2 meq/L 21.0-29.0 (test code = 1840) BE, Arterial-POC (test -2.0 meq/L -2.0-3.0 : LIONEL HERNANDEZ AT [facility] code = 1841) [address] [place], [address]: Printed Circuit Boards Inspector/Techni dakota ID = [id number] for URCIA, FAMELA Lab Interpretation Abnormal (test code = 84140-4) [id number] 03:08:39 Test Item Value Reference Range Interpretation Comments POC-Sodium (test code = 134 meq/L 135-148 L : TE STED AT [facility] 1542) 6720 [facility], 770 30: Printed Circuit Boards Inspector/Techni dakota ID = [id number] for URCIA, FAMELA Lab Interpretation (test Abnormal code = 12554-2) [facility]-Blood gases, [id number] 03:08:39 Test Item Value Reference Range Interpretation [...] tomated message] code = 1838) The system [employer]Path h generated this result transmit hernandez reference range : 80.0 - 90.0 mm Hg. The reference r colby was not used to interpret this result as normal/abnormal . SO2, Arterial-POC (test 91.0 % 96.0-97.0 L code = 1839) HCO3, Arterilal-POC 22.2 meq/L 21.0-29.0 (test code = 1840) BE, Arterial-POC (test -2.0 meq/L -2.0-3.0 : LIONEL HERNANDEZ AT [facility] code = 1841) [address] [facility], [address]: Printed Circuit Boards Inspector/Techni dakota ID = [id number] for URCIA, FAMELA Lab Interpretation Abnormal (test code = 59019-1) [facility]-Fjerpj3390-87-22 03:08:39 Test Item Value Reference Range Interpretation Comments POC-Sodium (test code = 134 meq/L 135-148 L : TE STED AT [facility] 1542) 6720 [facility], 770 30: Printed Circuit Boards Inspector/Techni dakota ID = [id number] for URCIA, FAMELA Lab Interpretation (test Abnormal code = 60733-2) [facility]-Blood gases, [id number] 03:08:39 Test Item Value Reference Range Interpretation [...] tomated message] code = 1838) The system [employer] Software[employer] h generated this result transmit hernandez reference range : 80.0 - 90.0 mm Hg. The reference r colby was not used to interpret this result as normal/abnormal . SO2, Arterial-POC (test 91.0 % 96.0-97.0 L code = 1839) HCO3, Arterilal-POC 22.2 meq/L 21.0-29.0 (test code = 1840) BE, Arterial-POC (test -2.0 meq/L -2.0-3.0 : LIONEL HERNANDEZ AT [facility] code = 1841) [address]20 [place], [address]: Printed Circuit Boards Inspector/Techni dakota ID = [id number] for URCIA, FAMELA Lab Interpretation Abnormal (test code = 28680-9) [facility]-Lfzlto8532-06-21 03:08:39 Test Item Value Reference Range Interpretation Comments POC-Sodium (test code = 134 meq/L 135-148 L : TE STED AT [facility] 1542) 6720 [facility] [place], [address]: Printed Circuit Boards Inspector/Techni dakota ID = [id number] for URCIA, FAMELA Lab Interpretation (test Abnormal code = 65021-2) [facility]-Blood gases, [id number] 03:08:39 Test Item Value Reference Range Interpretation [...] tomated message] code = 1838) The system FiPath h generated this result transmit hernandez reference range : 80.0 - 90.0 mm Hg. The reference r colby was not used to interpret this result as normal/abnormal . SO2, Arterial-POC (test 91.0 % 96.0-97.0 L code = 1839) HCO3, Arterilal-POC 22.2 meq/L 21.0-29.0 (test code = 1840) BE, Arterial-POC (test -2.0 meq/L -2.0-3.0 : LIONEL HERNANDEZ AT [facility] code = 1841) [address] [facility], [address]: Printed Circuit Boards Inspector/Techni dakota ID = [id number] for URCIA, FAMELA Lab Interpretation Abnormal (test code = 73616-1) [facility]-Roxjeo9820-24-49 03:08:39 Test Item Value Reference Range Interpretation Comments POC-Sodium (test code = 134 meq/L 135-148 L : TE STED AT [facility] 1542) [address] [facility] [place], [address]: Printed Circuit Boards Inspector/Techni dakota ID = [id number] for URCIA, FAMELA Lab Interpretation (test Abnormal code = 36510-6) [facility]-Blood gases, [id number] 03:08:39 Test Item Value Reference Range Interpretation [...] tomated message] code = 1838) The system [employer] - A [employer] Its Kind [employer] generated this result transmit hernandez reference range : 80.0 - 90.0 mm Hg. The reference r colby was not used to interpret this result as normal/abnormal . SO2, Arterial-POC (test 91.0 % 96.0-97.0 L code = 1839) HCO3, Arterilal-POC 22.2 meq/L 21.0-29.0 (test code = 1840) BE, Arterial-POC (test -2.0 meq/L -2.0-3.0 : LIONEL HERNANDEZ AT [facility] code = 1841) [address] [facility], [address]: Printed Circuit Boards Inspector/Techni dakota ID = [id number] for URCIA, FAMELA Lab Interpretation Abnormal (test code = 26957-3) [facility]-[id number] 03:08:39 Test Item Value Reference Range Interpretation Comments POC-Sodium (test code = 134 meq/L 135-148 L : TE STED AT [facility] 1542) 67[address] [facility] [place], [address]: Printed Circuit Boards Inspector/Techni dakota ID = [id number] for URCIA, FAMELA Lab Interpretation (test Abnormal code = 87779-5) [facility]-Blood gases, [id number] 03:08:39 Test Item Value Reference Range Interpretation [...] tomated message] code = 1838) The system [employer] - [employer] generated this result transmit hernandez reference range : 80.0 - 90.0 mm Hg. The reference r colby was not used to interpret this result as normal/abnormal . SO2, Arterial-POC (test 91.0 % 96.0-97.0 L code = 1839) HCO3, Arterilal-POC 22.2 meq/L 21.0-29.0 (test code = 1840) BE, Arterial-POC (test -2.0 meq/L -2.0-3.0 : LIONEL HERNANDEZ AT [facility] code = 1841) [address] [facility], [address]: Printed Circuit Boards Inspector/Techni dakota ID = [id number] for URCIA, FAMELA Lab Interpretation Abnormal (test code = 35106-0) [facility]-[id number] 03:08:39 Test Item Value Reference Range Interpretation Comments POC-Sodium (test code = 134 meq/L 135-148 L : TE STED AT [facility] 1542) 6720 [facility] [place], [address]: Printed Circuit Boards Inspector/Techni dakota ID = [id number] for URCIA, FAMELA Lab Interpretation (test Abnormal code = 33383-6) [facility]-Blood gases, [id number] 03:08:39 Test Item Value Reference Range Interpretation [...] tomated message] code = 1838) The system [employer] - A [employer] Its Kind [employer] generated this result transmit hernandez reference range : 80.0 - 90.0 mm Hg. The reference r colby was not used to interpret this result as normal/abnormal . SO2, Arterial-POC (test 91.0 % 96.0-97.0 L code = 1839) HCO3, Arterilal-POC 22.2 meq/L 21.0-29.0 (test code = 1840) BE, Arterial-POC (test -2.0 meq/L -2.0-3.0 : LIONEL HERNANDEZ AT [facility] code = 1841) [address] [place] [address], [address]: Printed Circuit Boards Inspector/Techni dakota ID = [id number] for URCIA, FAMELA Lab Interpretation Abnormal (test code = 17749-1) [facility]-Hcymrh6665-09-66 03:08:39 Test Item Value Reference Range Interpretation Comments POC-Sodium (test code = 134 meq/L 135-148 L : TE STED AT [facility] 1542) [address] [place] [address], 770 30: Printed Circuit Boards Inspector/Techni dakota ID = [id number] for URCIA, FAMELA Lab Interpretation (test Abnormal code = 61428-3) [facility]-BLOOD GASES, [id number] 03:08:39 Test Item Value Reference Range Interpretation [...] EXCESS, -2.0 meq/L -2.0-3.0 : TESTED AT [facility] 6720 [place], (BEAKER) (test code [address]: = 1841) Printed Circuit Boards Inspector/Techni dakota ID = [id number] for URCI A, FAMELA [id number] 03:08:39 Test Item Value Reference Range Interpretation Comments POC-SODIUM (BEAKER) 134 meq/L 135-148 L : TESTED AT [facility] 6720 (test code = 1542) [place], [address]: Printed Circuit Boards Inspector/Techni dakota ID = [id number] for URCI A, FAMELA RAD, CHEST, 1 VIEW, NON [id number] 03:00:00Reason for exam:- >destaurationShould this be performed at the bedside?->Yes [facility] : 2000 Sex: MFINAL REPORT RAD, CHEST, 1 VIEW, NON DEPT INDICATION: desaturation COMPARISON: Prior day's exam FINDINGS: Portable frontal view of the chest. IMPRESSION: Support Lines: Stable feeding tube. Lungs and pleura: Unchanged hypoinflated lungs with bibasilar atelectasis and small bilateral pleural effusions. No pneumothorax. Heart and mediastinum: Stable contours. Additional findings: None. Signed: Gokul Encarnacion Verified Date/Time: 09/07/2021 03:00:20 BASIC METABOLIC [id number] 01:49:40 Test Item Value Reference Range Interpretation [...] S NOT APPLICABLE FOR DIALYSIS PATIEN TS. Printed Circuit Boards Inspector ID - [id number] 01:38:31 Test Item Value Reference Range Interpretation Comments PHOSPHORUS (BEAKER) (test code = 3.1 mg/dL 2.3-4.7 604) Printed Circuit Boards Inspector ID - [id number] 01:38:30 Test Item Value Reference Range Interpretation Comments MAGNESIUM (BEAKER) (test code = 1.9 mg/dL 1.6-2.6 627) Printed Circuit Boards Inspector ID - BSPOCT-GLUCOSE [id number] 00:10:21 Test Item Value Reference Range Interpretation Comments POC-GLUCOSE METER 128 mg/dL 70-110 H : TESTED A T [facility] 6720 (BEAKER) (test code = [facility], 153) [address]: Printed Circuit Boards Inspector/Techni dakota ID = [id number] for ABBIE PIERRE POCT-GLUCOSE [id number] 15:58:02 Test Item Value Reference Range Interpretation Comments POC-GLUCOSE METER 142 mg/dL 70-110 H : TESTED A T [facility] 6720 (BEAKER) (test code = [facility], 153) [address]: Printed Circuit Boards Inspector/Techni dakota ID = [id number] for Laura Ch POCT-GLUCOSE [id number] 13:04:07 Test Item Value Reference Range Interpretation Comments POC-GLUCOSE METER 141 mg/dL 70-110 H : TESTED A T [facility] 6720 (BEAKER) (test code = [place], 1538) [address]: Printed Circuit Boards Inspector/Techni dakota ID = [id number] for Laura Ch TSH/FREE T4 IF [id number] 11:33:39 Test Item Value Reference Range Interpretation Comments THYROID STIMULATING HORMONE 4.429 uIU/mL 0.350-4.940 ([place]) (test code = 772) Printed Circuit Boards Inspector ID - PIAYASARS-COV2/RT-PCR ([facility])2021-09-06 10:50:02 Test Item Value Reference Range Interpretation Comments SARS-COV2/RT-PCR (test Negative Not Detected, Negative, code = 7657883) See external report for linked test SARS-COV-[address] [facility] SELENA (test code = 8686564) Negative result for this test determines that [...] of the Act.Fact Sheet for Healthcare Prov iders:https://www.[employer]/sites/default/files/product/documents/Fact_Sheet_HC _Dsbruwuhe_Irwy_CJRS-NeH-2.pdfFact Sheet for Healthcare Patients:https://www.[employer]/sites/default/files/product/docume nts/Vvrr_Mcuds_Mwuffiiz_Rvot_LCBE-SiJ-7.pdfPerforming Laboratory:[facility], [place] [address]GLDELBS D, 25-HYDROXY 2021-09-06 07:57:12 Test Item Value Reference Range Interpretation Comments VITAMIN D 25-OH (BEAKER) (test 15.4 ng/mL 6.6-49.9 code = 2764) Effective 02/27/2017: Reference Range ChangeNew: 6.6-49.9 ng/mL Previous: 13.0- 47.8 ng/mLRecommendedVitamin D Target Range: 30.0-40.0 ng/mLOperator ID - BS POCT-GLUCOSE [id number] 07:40:30 Test Item Value Reference Range Interpretation Comments POC-GLUCOSE METER 157 mg/dL 70-110 H : TESTED A T [facility] 6720 (BEAKER) (test code = [place] [facility], 1538) [address]: Printed Circuit Boards Inspector/Techni dakota ID = [id number] for Laura Ch COMPLEMENT COMPONENT [id number] 07:37:31 Test Item Value Reference Range Interpretation Comments C3 COMPLEMENT (BEAKER) (test code = 25 mg/dL 82-193 L 393) [employer] Boards Inspector ID - BSCOMPLEMENT COMPONENT [id number] 07:37:30 Test Item Value Reference Range Interpretation Comments C4 COMPLEMENT (BEAKER) (test code = 4 mg/dL 15-57 L 394) [employer] Boards Inspector ID - BSPROTEIN, RANDOM [id number] 07:28:02 Test Item Value Reference Range Interpretation Comments PROTEIN, URINE (BEAKER) (test code 411 mg/dL 0-14 H = 1569) Printed Circuit Boards Inspector ID - BS(CELLAVISION MANUAL DIFF)2021-09-06 07:15:58 Test [...] CONCENTRATION Decreased (CELLAVISION)(BEAKER) (test code = 3438) Printed Circuit Boards Inspector ID - [id number] ID - joanna Fuentes comments: Slide comments:CBC W/PLT COUNT & AUTO [id number] 07:15:57 Test Item Value Reference Range Interpretation [...] (BEAKER) (test code = 413) CREATININE, RANDOM [id number] 06:26:45 Test Item Value Reference Range Interpretation Comments CREATININE URINE (BEAKER) (test 200.4 mg/dL code = 375) Reference Range: No NormalsOperator ID - BSURINALYSIS W/ [id number] 06:06:22 Test Item Value Reference Range Interpretation [...] = 1584) SOURCE(BEAKER) (test code = 2795) Printed Circuit Boards Inspector ID - [auto]Printed Circuit Boards Inspector ID - techOperator ID - techCOMPREHENSIVE METABOLIC [id number] 02:54:37 Test Item Value Reference Range Interpretation [...] S NOT APPLICABLE FOR DIALYSIS PATIEN TS. Printed Circuit Boards Inspector ID - BSLACTIC ACID, [id number] 02:42:48 Test Item Value Reference Range Interpretation Comments LACTATE BLOOD VENOUS (2) (BEAKER) 1.38 mmol/L 0.50-2.20 (test code = 2872) Printed Circuit Boards Inspector ID - [id number] 02:36:26 Test Item Value Reference Range Interpretation Comments MAGNESIUM (BEAKER) (test code = 1.6 mg/dL 1.6-2.6 627) Printed Circuit Boards Inspector ID - [id number] 02:36:26 Test Item Value Reference Range Interpretation Comments PHOSPHORUS (BEAKER) (test code = 2.4 mg/dL 2.3-4.7 604) Printed Circuit Boards Inspector ID - BSRAD, CHEST, 1 VIEW, NON [id number] 02:26:00Reason for exam:->sobPALAK [facility] : 2000 Sex: MFINALREPORT RAD, CHEST, 1 VIEW, NON DEPT INDICATION: sob COMPARISON: Prior day's exam FINDINGS: Portable frontal view of the chest. IMPRESSION: Support Lines: Stable. Lungs and pleura: Worsening consolidative airspace opacity in the right lung base may represent layering pleural effusion and atelectasis however infection should be excluded clinically. No left pleural effusion. No pneum othorax.Heart and mediastinum: Stable contours. Additional findings: None. Signed: Vernell Ndiaye Verified Date/Time: 09/06/2021 02:26:55 -GLUCOSE [id number] 01:16:19 Test Item Value Reference Range Interpretation Comments POC-GLUCOSE METER 164 mg/dL 70-110 H : TESTED A T [facility] 6720 (BEAKER) (test code = [place], 1538) [address]: Printed Circuit Boards Inspector/Techni dakota ID = [id number] for GR KIRBY, WENDY BASIC METABOLIC [id number] 19:41:58 Test Item Value Reference Range Interpretation [...] S NOT APPLICABLE FOR DIALYSIS PATIEN TS. Printed Circuit Boards Inspector ID - [id number] 19:38:29 Test Item Value Reference Range Interpretation Comments MAGNESIUM (BEAKER) (test code = 1.7 mg/dL 1.6-2.6 627) Printed Circuit Boards Inspector ID - [id number] 19:38:29 Test Item Value Reference Range Interpretation Comments PHOSPHORUS (GENEVA) (test code = 2.0 mg/dL 2.3-4.7 L 604) Printed Circuit Boards Inspector ID - BSPOCT-GLUCOSE [id number] 19:12:09 Test Item Value Reference Range Interpretation Comments POC-GLUCOSE METER 184 mg/dL 70-110 H : TESTED A T [facility] 6720 (GENEVA) (test code = [place], 1538) [address]: Printed Circuit Boards Inspector/Techni dakota ID = [id number] for CHANTE GIL [id number] 17:52:47 Test Item Value Reference Range Interpretation Comments FERRITIN (GENEVA) (test code = 4212.17 ng/mL 5.00-275.00 H 361) Printed Circuit Boards Inspector ID - BSOperator ID - BSCT, [id number] 12:57:00Unlisted Reason for Exam - Click Yes and Enter Reason Below->YesUnlisted Reason for Exam->pancreatitis folllow-upIs this for enterography?->NoWill this procedure require oral contrast?->No [facility] : 2000 [...] changes of the lefthip. Signed: Yash Lux MDRsonya Verified Date/Time: 09/05/2021 12:57:43 Reading Location: [facility] Reading Room - [place] [address] POCT-GLUCOSE [id number] 12:23:38 Test Item Value Reference Range Interpretation Comments POC-GLUCOSE METER 181 mg/dL 70-110 H : TESTED A T [facility] 6720 (BEAKER) (test code = [place], 1538) [address]: Printed Circuit Boards Inspector/Techni dakota ID = [id number] for CHANTE GIL POCT-GLUCOSE [id number] 06:55:24 Test Item Value Reference Range Interpretation Comments POC-GLUCOSE METER 197 mg/dL 70-110 H : TESTED A T [facility] 6720 (BEAKER) (test code = [place], 1538) [address]: Printed Circuit Boards Inspector/Techni dakota ID = [id number] for ON UOHA ALLAN COMPREHENSIVE METABOLIC [id number] 06:16:59 Test Item Value Reference Range Interpretation [...] S NOT APPLICABLE FOR DIALYSIS PATIEN TS. Printed Circuit Boards Inspector ID - SHREE WCALCIUM, [id number] 05:57:49 Test Item Value Reference Range Interpretation [...] WBC 0-0 (BEAKER) (test code = 413) [id number] 01:18:24 Test Item Value Reference Range Interpretation Comments PHOSPHORUS (BEAKER) (test code = 1.2 mg/dL 2.3-4.7 LL 604) Printed Circuit Boards Inspector ID - BSBASIC METABOLIC [id number] 01:17:10 Test Item Value Reference Range Interpretation [...] S NOT APPLICABLE FOR DIALYSIS PATIEN TS. Printed Circuit Boards Inspector ID - [id number] 01:10:55 Test Item Value Reference Range Interpretation Comments MAGNESIUM (BEAKER) (test code = 2.3 mg/dL 1.6-2.6 627) Printed Circuit Boards Inspector ID - BSPOCT-GLUCOSE [id number] 00:50:48 Test Item Value Reference Range Interpretation Comments POC-GLUCOSE METER 194 mg/dL 70-110 H : TESTED A T [facility] 6720 (BEAKER) (test code = [place], 1538) 13[address]: Printed Circuit Boards Inspector/Techni dakota ID = [id number] for ON UOHA, ALLAN CT, CHEST WITH IV CONTRAST- PE TEST [id number] 21:21:00Unlisted Reason for Exam - Click Yes and Enter Reason Below->No [facility] : 2000 Sex: MFINAL [...] Vernell Ndiaye Verified Date/Time: 09/04/2021 21:21:16 POCT-GLUCOSE [id number] 18:23:42 Test Item Value Reference Range Interpretation Comments POC-GLUCOSE METER 248 mg/dL 70-110 H : TESTED A T [facility] 6720 (BEAKER) (test code = [facility], 1538) 17[address]: Printed Circuit Boards Inspector/Techni dakota ID = [id number] for Bree Roman [id number] 14:56:22 Test Item Value Reference Range Interpretation Comments CALCIUM (BEAKER) (test code = 697) 5.8 mg/dL 8.4-10.2 LL Printed Circuit Boards Inspector ID - ADMINPOCT-GLUCOSE [id number] 13:17:18 Test Item Value Reference Range Interpretation Comments POC-GLUCOSE METER 217 mg/dL 70-110 H : TESTED A T [facility] 6720 (BEAKER) (test code = [facility] [employer] [facility], 1538) 27[address]: Printed Circuit Boards Inspector/Techni dakota ID = [id number] for Liana Flores CBC W/PLT COUNT & AUTO [id number] 07:22:59 Test Item Value Reference Range Interpretation [...] PERCENT (BEAKER) (test code = 2801) POCT-GLUCOSE [id number] 06:16:20 Test Item Value Reference Range Interpretation Comments POC-GLUCOSE METER 261 mg/dL 70-110 H : TESTED A T [facility] 6720 (BEAKER) (test code = [place] [facility], 1538) 98[address]: Printed Circuit Boards Inspector/Techni dakota ID = [id number] for KENDALL JOYA COMPREHENSIVE METABOLIC [id number] 05:49:22 Test Item Value Reference Range Interpretation [...] S NOT APPLICABLE FOR DIALYSIS PATIEN TS. Printed Circuit Boards Inspector ID - [id number] 05:33:14 Test Item Value Reference Range Interpretation Comments MAGNESIUM (BEAKER) (test code = 1.8 mg/dL 1.6-2.6 627) Printed Circuit Boards Inspector ID - ADMINURINALYSIS W/ REFLEX URINE [id number] 01:34:44 Test Item Value Reference Range Interpretation [...] 1585) Rare SOURCE(BEAKER) (test code = 2795) Printed Circuit Boards Inspector ID - [auto]Printed Circuit Boards Inspector ID - techPOCT-GLUCOSE [id number] 00:34:17 Test Item Value Reference Range Interpretation Comments POC-GLUCOSE METER 261 mg/dL 70-110 H : TESTED A T [facility] 6720 (BEAKER) (test code = [facility], 1538) 65872: Printed Circuit Boards Inspector/Techni dakota ID = [id number] for KENDALL JOYA [id number] 18:57:34 Test Item Value Reference Range Interpretation Comments MAGNESIUM (BEAKER) (test code = 1.3 mg/dL 1.6-2.6 L 627) Printed Circuit Boards Inspector ID - ADMINPOCT-GLUCOSE [id number] 18:04:02 Test Item Value Reference Range Interpretation Comments POC-GLUCOSE METER 307 mg/dL 70-110 H : TESTED A T [facility] 6720 (BEAKER) (test code = [facility], 1538) 012[address]: Printed Circuit Boards Inspector/Techni dakota ID = [id number] for Liana Flores RAD, ABDOMEN/KUB, 1 VIEW [id number] 18:01:00Reason for exam:->Enteric tube placement verification [facility] : 2000 Sex: MFINAL [...] MDReport Verified Date/Time: 09/03/2021 18:01:34 COMPREHENSIVE METABOLIC [id number] 17:50:55 Test Item Value Reference Range Interpretation [...] S NOT APPLICABLE FOR DIALYSIS PATIEN TS. Printed Circuit Boards Inspector ID - [id number] ID - [id number] ID - ADMINCBC W/PLT COUNT & AUTO [id number] 17:43:10 Test Item Value Reference Range Interpretation [...] code = 2801) RAD, ABDOMEN/KUB, 1 VIEW [id number] 17:14:00Reason for exam:->confirm NGT [facility]IN[facility] : 2000 [...] 09/03/2021 17:14:35 , CHEST, 1 VIEW, NON [id number] 16:50:00Reason for exam:->ngt placementShould this be performed at the bedside?->Yes [facility] : 2000 Sex: MFINAL REPORT INDICATION: ngt placement COMPARISON: None TECHNIQUE: Single frontal viewof the chest. FINDINGS: Lungs and pleura: Trace right effusion and basilar atelectasisHeart and mediastinum: Normal heart size. Unremarkable mediastinal contours.Osseous structures: No acute abnormality .Other: Feeding tube descends below the diaphragm. Signed: Anne Marie Correa Verified Date/Time: 09/03/2021 16:50:54 [id number] 10:58:42 Test Item Value Reference Range Interpretation Comments PHOSPHORUS (BEAKER) 1.6 mg/dL 2.3-4.7 L Specimen slightly (test code = 604) hemolyzed Printed Circuit Boards Inspector ID - BISI GCOMPREHENSIVE METABOLIC [id number] 06:03:24 Test Item Value Reference Range Interpretation [...] S NOT APPLICABLE FOR DIALYSIS PATIEN TS. Printed Circuit Boards Inspector ID - BISI GPOCT-GLUCOSE [id number] 22:25:14 Test Item Value Reference Range Interpretation Comments POC-GLUCOSE METER 312 mg/dL 70-110 H : [facility] (BEAKER) (test code = [place], 1538) [address]: Printed Circuit Boards Inspector/Techni dakota ID = [id number] for FABRIZIO JOYCE POCT-GLUCOSE [id number] 19:00:17 Test Item Value Reference Range Interpretation Comments POC-GLUCOSE METER 339 mg/dL 70-110 H : Notified RN/MD: (GENEVA) (test code = TESTED AT [facility] 6745 7342) [facility], [address]: Printed Circuit Boards Inspector/Techni dakota ID = [id number] for Rudy mccord (contract), Dei yana PROTEIN, RANDOM [id number] 08:28:13 Test Item Value Reference Range Interpretation Comments PROTEIN, URINE (BEAKER) (test code 243 mg/dL 0-14 H = 1569) Printed Circuit Boards Inspector ID - BSOperator ID - BSCREATININE, RANDOM [id number] 07:21:31 Test Item Value Reference Range Interpretation Comments CREATININE URINE (BEAKER) (test 122.9 mg/dL code = 375) Reference Range: No NormalsOperator ID - BSRAD, CHEST, 1 VIEW, NON DEPT 2021-09-02 01:55:00Reason for exam:->chest painShould this be performed at the bedside?->Yes [facility] : 2000 Sex: MFINAL REPORT History: chest pain. Comparison: None. Findings: A single view of the chest is submitted. The cardiomediastinal contours are unremarkable. There is no focal consolidation, pneumothorax, large pleural effusion or evidence of overt pulmonary edema. There is no acute bony abnormality. Impression: No acute abnormality. Signed: Miles Alicia Verified Date/Time: 09/02/2021 01:55:59 POCT-GLUCOSE [id number] 23:28:42 Test Item Value Reference Range Interpretation Comments POC-GLUCOSE METER 277 mg/dL 70-110 H : TESTED A T [facility] 6720 (BEAKER) (test code = [place] [facility], 1538) [address]: Printed Circuit Boards Inspector/Techni dakota ID = [id number] for PAULINA RODRIGUES POCT-GLUCOSE [id number] 18:19:51 Test Item Value Reference Range Interpretation Comments POC-GLUCOSE METER 263 mg/dL 70-110 H : TESTED A T [facility] 6720 (BEAKER) (test code = [place] [facility], 1538) 478[address]: Printed Circuit Boards Inspector/Techni dakota ID = [id number] for Laura Ch HIGH SENSITIVITY TROPONIN [id number] 17:04:34 Test Item Value Reference Range Interpretation Comments HIGH SENSITIVITY < pg/ml See_Comment [Automated message] TROPONIN I (test code = The system which 3310433) generated this result transmitted ref erence range: <=35. Th e reference range was not used to interpr et this result as normal/abnormal . Printed Circuit Boards Inspector ID - BSThe SECURITY ANALYST STAT High Sensitivity Troponin-I results should be used in conjunctionwith other diagnostic information such as ECG, clinical observations and information, and patient symptoms to aid in the diagnosis of SD.(CELLAVISION MANUAL DIFF)2021-09-01 10:37:19 Test Item Value Reference [...] CONCENTRATION Decreased (CELLAVISION)(BEAKER) (test code = 3438) Printed Circuit Boards Inspector ID - [id number] ID - joanna Fuentes comments: Slide comments:CBC W/PLT COUNT & AUTO [id number] 10:37:18 Test Item Value Reference Range Interpretation [...] (BEAKER) (test code = 413) COMPREHENSIVE METABOLIC [id number] 07:28:31 Test Item Value Reference Range Interpretation [...] S NOT APPLICABLE FOR DIALYSIS PATIEN TS. Printed Circuit Boards Inspector ID - BSIMMUNOGLOBULIN A (IGA)2021-09-01 07:27:15 Test Item Value Reference Range Interpretation Comments IMMUNOGLOBULIN A (IGA) (BEAKER) 235 mg/dL 63-484 (test code = 639) Printed Circuit Boards Inspector ID - [id number] 07:11:49 Test Item Value Reference Range Interpretation Comments PROTIME (BEAKER) (test 13.5 seconds 11.9-14.2 code = 759) INR (BEAKER) (test 1.04 See_Comment [Automat ed code = 370) message] The [employer] which generated this result transmitted reference range [...] 2.5-3.5 for patients with mechanical heart valves.PROTHROMBIN TIME/[id number] 07:11:14 Test Item Value Reference Range Interpretation Comments PROTIME (BEAKER) 13.5 seconds 11.9-14.2 (test code = 759) INR (BEAKER) (test 1.04 See_Comment [Automat ed message] code = 370) The system [employer] generated this result transmitted ref erence range: <=5.90. The reference range was not used to int erpret this result as normal/abnormal . RECOMMENDED COUMADIN/WARFARIN INR THERAPY RANGESSTANDARD DOSE: 2.0 - 3.0 Includes: PROPHYLAXIS for venous thrombosis, systemic embolization; TREATMENT for venous thrombosis and/or pulmonary embolus.HIGH RISK: Target INR is 2.5-3.5 for patients with mechanical heart valves.POCT-GLUCOSE [id number] 22:01:13 Test Item Value Reference Range Interpretation Comments POC-GLUCOSE METER 219 mg/dL 70-110 H : TESTED A T [facility] 6720 (BEAKER) (test code = [facility], 1538) 99290: Printed Circuit Boards Inspector/Techni dakota ID = [id number] for FABRIZIO JOYCE POCT-GLUCOSE [id number] 17:24:51 Test Item Value Reference Range Interpretation Comments POC-GLUCOSE METER 177 mg/dL 70-110 H : TESTED A T [facility] 6720 (BEAKER) (test code = [facility], 1538) 03116: Printed Circuit Boards Inspector/Techni dakota ID = [id number] for Laura Ch [id number] 14:29:25 Test Item Value Reference Range Interpretation Comments RPR SCREEN ([facility]) (test code = Nonreactive Nonreactive 420) RHEUMATOID FACTOR [id number] 14:27:52 Test Item Value Reference Range Interpretation Comments RHEUMATOID FACTOR TITER ([facility]) (test :8 Negative code = 2285) RHEUMATOID FACTOR AB, REFLEX TO [id number] 14:26:49 Test Item Value Reference Range Interpretation Comments RHEUMATOID FACTOR (AKER) (test Positive Negative code = 573) POCT-GLUCOSE [id number] 13:43:32 Test Item Value Reference Range Interpretation Comments POC-GLUCOSE METER 163 mg/dL 70-110 H : TESTED A T [facility] 6720 (BEAKER) (test code = [facility], 1538) 16205: Printed Circuit Boards Inspector/Techni dakota ID = [id number] for Laura Ch RETICULOCYTE [id number] 09:04:11 Test Item Value Reference Range Interpretation Comments RETICULOCYTE COUNT PCT ([facility]) (test 0.4 % 0.5-1.8 L code = 575) Printed Circuit Boards Inspector ID - [id number]-GLUCOSE [id number] 08:53:33 Test Item Value Reference Range Interpretation Comments POC-GLUCOSE METER 117 mg/dL 70-110 H : TESTED A T [facility] 6720 (BEAKER) (test code = [facility], 1538) 14264: Printed Circuit Boards Inspector/Techni dakota ID = [id number] for José Miguel Elliott [id number] 08:02:13 Test Item Value Reference Range Interpretation Comments FERRITIN (BEAKER) (test code = 46450.20 ng/mL 5.00-275.00 H 361) Printed Circuit Boards Inspector ID - ADMINOperator ID - ADMINCOMPLEMENT COMPONENT [id number] 06:48:01 Test Item Value Reference Range Interpretation Comments C4 COMPLEMENT (BEAKER) (test code = < mg/dL 15-57 L 394) Printed Circuit Boards Inspector ID - BSHIV-1 ANTIGEN WITH HIV-1/2 [id number] 06:38:19 Test Item Value Reference Range Interpretation Comments HIV-1 ANTIGEN WITH HIV 1\\T\\2 Nonreactive Nonreactive ANTIBODY (2) (BEAKER) (test code = 2586) Printed Circuit Boards Inspector ID - BSCOMPLEMENT COMPONENT [id number] 06:32:35 Test Item Value Reference Range Interpretation Comments C3 COMPLEMENT (BEAKER) (test code = 13 mg/dL 82-193 L 393) Printed Circuit Boards Inspector ID - BSCOMPREHENSIVE METABOLIC [id number] 06:30:18 Test Item Value Reference Range Interpretation [...] S NOT APPLICABLE FOR DIALYSIS PATIEN TS. Printed Circuit Boards Inspector ID - [id number] 06:30:18 Test Item Value Reference Range Interpretation Comments MAGNESIUM (BEAKER) (test code = 1.5 mg/dL 1.6-2.6 L 627) Printed Circuit Boards Inspector ID - [id number] 06:13:21 Test Item Value Reference Range Interpretation Comments PROTIME (BEAKER) (test 13.8 seconds 11.9-14.2 code = 759) INR (BEAKER) (test 1.08 See_Comment [Automat ed code = 370) message] The [employer] which generated this result transmitted reference range [...] 2.5-3.5 for patients with mechanical heart valves.PROTHROMBIN TIME/[id number] 06:12:36 Test Item Value Reference Range Interpretation Comments PROTIME (BEAKER) 13.8 seconds 11.9-14.2 (test code = 759) INR (BEAKER) (test 1.08 See_Comment [Automat ed message] code = 370) The system [employer] generated this result transmitted ref erence range: [...] WBC 0-0 (test code = 413) BLOOD [id number] 05:00:52 Test Item Value Reference Range Interpretation Comments CULTURE (BEAKER) (test No growth in 5 days code = 1095) BLOOD [id number] 03:00:57 Test Item Value Reference Range Interpretation Comments CULTURE (BEAKER) (test No growth in 5 days code = 1095) The specimen volume collected for this blood culture was below the optimum (10 mL per bottle or 20 mL total). Use of lower volumes may adversely affect recovery and/or detection times of some organisms.POCT-GLUCOSE [id number] 21:20:13 Test Item Value Reference Range Interpretation Comments POC-GLUCOSE METER 132 mg/dL 70-110 H : TESTED A T [facility] 6720 (BEAKER) (test code = [place], 1538) [address]: Printed Circuit Boards Inspector/Techni dakota ID = [id number] for SA NDERS, AXEL POCT-GLUCOSE [id number] 17:39:12 Test Item Value Reference Range Interpretation Comments POC-GLUCOSE METER 137 mg/dL 70-110 H : TESTED A T [facility] 6720 (BEAKER) (test code = [facility], 1538) 733[address]: Printed Circuit Boards Inspector/Techni dakota ID = [id number] for Nury Link PERIPHERAL BLOOD SMEAR - PATHOLOGIST [id number] 16:27:42 Test Item Value Reference Range Interpretation Comments PERIPHERAL SMR REVIEW Microcytic hypochromic (BEAKER) (test code = anemia with mild 2640) anisopoikilocytosis. Leukopenia with neutropenia and left shifted granulocytic elements. Rare atypical lymphocytes. Decreased platelets; no significant platelet clumping/satellitism identified. [id number] Brea Morales (BEAKER) (test code = Xavier Gallegos 0965) POCT-GLUCOSE [id number] 12:50:21 Test Item Value Reference Range Interpretation Comments POC-GLUCOSE METER 148 mg/dL 70-110 H : TESTED A T [facility] 6720 (BEAKER) (test code = [facility], 1538) 61486: Printed Circuit Boards Inspector/Techni dakota ID = [id number] for Nury Link MISCELLANEOUS LAB [id number] 12:30:57 Test Item Value Reference Range Interpretation Comments SCAN RESULT (test code = see scanned results [id number]) see scanned [id number] 11:53:39 Test Item Value Reference Range Interpretation Comments LIPASE (BEAKER) (test code = 749) 969 U/L 8-78 H Printed Circuit Boards Inspector ID - BSANA TITER AND [id number] 10:59:38 Test Item Value Reference Range Interpretation [...] 1+ few (test code = 768) POCT-GLUCOSE [id number] 08:23:03 Test Item Value Reference Range Interpretation Comments POC-GLUCOSE METER 97 mg/dL 70-110 : TESTED A T [facility]20 (BEAKER) (test code = [place], 1538) 267[address]: Printed Circuit Boards Inspector/Techni dakota ID = [id number] for Nury Uriostegui [id number] 04:36:10 Test Item Value Reference Range Interpretation Comments MAGNESIUM (BEAKER) (test code = 1.5 mg/dL 1.6-2.6 L 627) Printed Circuit Boards Inspector ID - BSC-REACTIVE [id number] 04:36:10 Test Item Value Reference Range Interpretation Comments C-REACTIVE PROTEIN (BEAKER) (test 0.77 mg/dL 0.00-0.50 H code = 676) Printed Circuit Boards Inspector ID - BSCOMPREHENSIVE METABOLIC [id number] 04:36:09 Test Item Value Reference Range Interpretation [...] S NOT APPLICABLE FOR DIALYSIS PATIEN TS. Printed Circuit Boards Inspector ID - [id number] 04:12:17 Test Item Value Reference Range Interpretation [...] 2.5-3.5 for patients with mechanical heart valves.PROTHROMBIN TIME/[id number] 04:11:15 Test Item Value Reference Range Interpretation Comments PROTIME (BEAKER) 13.8 seconds 11.9-14.2 (test code = 759) INR (BEAKER) (test 1.08 See_Comment [Automat ed message] code = 370) The system [employer] h generated this result transmitted ref erence [...] WBC 0-0 (test code = 413) POCT-GLUCOSE [id number] 21:48:31 Test Item Value Reference Range Interpretation Comments POC-GLUCOSE METER 136 mg/dL 70-110 H : [facility] (BEAKER) (test code = [place] [facility], 1538) [address]: Printed Circuit Boards Inspector/Techni dakota ID = [id number] for SA AXEL CLEMENS SARS-COV2/RT-PCR ([facility])2021-08-29 20:38:24 Test Item Value Reference Range Interpretation Comments SARS-COV2/RT-PCR (test code = Negative Negative [id number]) Negative result for this test determines that [...] 564(g) of the Act.Testing was performed using Wannado SARS-CoV-2 assay.Fact Sheet for Healthcare Providers:https://www.[employer].mcqueen/pedro/RT SARS-CoV-2 HCP Fact Sheet 51- 887722.pdfFact Sheet for Healthcare Patients:https://www.[employer].mcqueen/pedro/RT SARS-CoV-2 Patient Fact Sheet EN 51-377235R6.pdfPOCT-GLUCOSE [id number] 17:55:13 Test Item Value Reference Range Interpretation Comments POC-GLUCOSE METER 109 mg/dL 70-110 : [facility] (BEAKER) (test code = [place] [facility], 1538) 220[address]: Printed Circuit Boards Inspector/Techni dakota ID = [id number] for Toy Lopez [id number] 14:07:15 Test Item Value Reference Range Interpretation Comments LIPASE (BEAKER) (test code = 749) > U/L 8-78 H Printed Circuit Boards Inspector ID - FATMATA [id number] 14:02:51 Test Item Value Reference Range Interpretation Comments FIBRINOGEN LEVEL (BEAKER) (test 189 mg/dl 225-434 L code = 658) [id number] 13:33:46 Test Item Value Reference Range Interpretation Comments PHOSPHORUS (BEAKER) 2.1 mg/dL 2.3-4.7 L Specimen slightly (test code = 604) hemolyzed [employer]ed Circuit Boards Inspector ID - FATMATA WPOCT-GLUCOSE [id number] 11:56:19 Test Item Value Reference Range Interpretation Comments POC-GLUCOSE METER 109 mg/dL 70-110 : TESTED A T [facility] 67[facility] (BEAKER) (test code = [place], 1538) [address]: Printed Circuit Boards Inspector/Techni dakota ID = [id number] for Toy Lopez [id number] 10:37:25 Test Item Value Reference Range Interpretation Comments MAGNESIUM (BEAKER) 1.4 mg/dL 1.6-2.6 L Specimen slightly (test code = 627) hemolyzed [employer]ed [employer] Boards Inspector ID - BSCOMPREHENSIVE METABOLIC [id number] 10:37:25 Test Item Value Reference Range Interpretation [...] S NOT APPLICABLE FOR DIALYSIS PATIEN TS. Printed [employer] Boards Inspector ID - BSPOCT-GLUCOSE [id number] 08:55:18 Test Item Value Reference Range Interpretation Comments POC-GLUCOSE METER 101 mg/dL 70-110 : TESTED A T [facility] (BEAKER) (test code = [place], 1538) [address]: Printed Circuit Boards Inspector/Techni dakota ID = [id number] for Toy Lopez PROTHROMBIN TIME/[id number] 05:16:55 Test Item Value Reference Range Interpretation Comments PROTIME (BEAKER) 16.3 seconds 11.9-14.2 H (test code = 759) INR (BEAKER) (test 1.33 See_Comment [Automat ed message] code = 370) The system [employer] - A First [employer] Its Kind Flip Fl[employer] generated this result transmitted ref erence range: [...] WBC 0-0 (test code = 413) POCT-GLUCOSE [id number] 04:41:33 Test Item Value Reference Range Interpretation Comments POC-GLUCOSE METER 122 mg/dL 70-110 H : TESTED A T [facility] 6720 (BEAKER) (test code = [place], 1538) [address]: Printed Circuit Boards Inspector/Techni dakota ID = [id number] for Rachele Singh HEPATITIS B SURFACE [id number] 19:07:46 Test Item Value Reference Range Interpretation Comments HEPATITIS B SURFACE ANTIGEN (2) Nonreactive Nonreactive (BEAKER) (test code = 2585) Specimen is considered negative for HBsAg.HEPATITIS C [id number] 18:37:24 Test Item Value Reference Range Interpretation Comments HEPATITIS C ANTIBODY (BEAKER) Nonreactive Nonreactive (test code = 367) [employer] Boards Inspector ID - BSHEPATITIS A ANTIBODY, [id number] 18:29:47 Test Item Value Reference Range Interpretation Comments HEPATITIS A IGG ANTIBODY (BEAKER) Reactive Nonreactive A (test code = 2797) [employer] Boards Inspector ID - BSHEPATITIS B SURFACE [id number] 18:27:24 Test Item Value Reference Range Interpretation Comments HEPATITIS B SURFACE ANTIBODY 328.2 mIU/mL <8.0 H (BEAKER) (test code = 647) [employer] Boards Inspector ID - BSHEPATITIS B CORE ANTIBODY, [id number] 18:27:24 Test Item Value Reference Range Interpretation Comments HEPATITIS B CORE TOTAL ANTIBODY Nonreactive Nonreactive (BEAKER) (test code = 497) [employer] Boards Inspector ID - BSRapid drug screen, [id number] 18:17:41 Test Item Value Reference Range Interpretation Comments Barbiturate Screen Negative Negative (test code = 03769-8) Benzodiazepine Screen Negative Negative (test code = 49757-4) Cocaine (Metab.) Negative Negative Screen (test code = 3397-7) Methadone Screen (test Negative Negative code = 17679-4) Opiate Screen (test Negative Negative code = 12017-1) Cannabinoid Screen Negative Negative (test code = 44284-3) Amph/Methamph Screen Negative Negative (test code = 30196-2) Phencyclidine Screen Negative Negative (test code = 91075-2) pH, UA (test code = 7.5 5.0-8.0 5803-2) IDALIA (test code = IDALIA) DRUG CUTOFF CONC.Cocaine 300 ng/mL Cannabinoid 50 ng/mLBenzodiazepine 200 ng/mLBarbiturate 200 ng/mLPhencyclidine 25 ng/mLOpiate 300 ng/mLMethadone 300 ng/mLAmphetamine/ 1000 ng/mL Methamphetamine This assay provides an unconfirmed qualitative test result for the clinical management of patients in emergency situations. Chain of custody not maintained. Some rrdo-zjp-qqfngsq medications, as well as adulterants, may cause inaccurate results. Clinical correlation should be applied. A more comprehensive drug screen or confirmation of a detected drug may be performed upon request.[employer]ed [employer] Boards Inspector ID - BS Lab Interpretation Normal (test code = 90716-9) [facility] [id number] 18:17:41 Test Item Value Reference Range Interpretation Comments Barbiturate Screen Negative Negative (test code = 59609-9) Benzodiazepine Screen Negative Negative (test code = 78888-9) Cocaine (Metab.) Negative Negative Screen (test code = 3397-7) Methadone Screen (test Negative Negative code = 31846-9) Opiate Screen (test Negative Negative code = 16783-0) Cannabinoid Screen Negative Negative (test code = 46326-5) Amph/Methamph Screen Negative Negative (test code = 13466-2) Phencyclidine Screen Negative Negative (test code = 31118-4) pH, UA (test code = 7.5 5.0-8.0 5803-2) IDALIA (test code = IDALIA) DRUG CUTOFF CONC.Cocaine 300 ng/mL Cannabinoid 50 ng/mLBenzodiazepine 200 ng/mLBarbiturate 200 ng/mLPhencyclidine 25 ng/mLOpiate 300 ng/mLMethadone 300 ng/mLAmphetamine/ 1000 ng/mL Methamphetamine This assay provides an unconfirmed qualitative test result for the clinical management of patients in emergency situations. Chain of custody not maintained. Some augx-xol-tjplfdf medications, as well as adulterants, may cause inaccurate results. Clinical correlation should be applied. A more comprehensive drug screen or confirmation of a detected drug may be performed upon request.[employer] Boards Inspector ID - BS Lab Interpretation Normal (test code = 93076-2) [facility], [id number] 18:17:41 Test Item Value Reference Range Interpretation Comments Barbiturate Screen Negative Negative (test code = 10285-9) Benzodiazepine Screen Negative Negative (test code = 47325-6) Cocaine (Metab.) Negative Negative Screen (test code = 3397-7) Methadone Screen (test Negative Negative code = 46392-1) Opiate Screen (test Negative Negative code = 14624-6) Cannabinoid Screen Negative Negative (test code = 84754-7) Amph/Methamph Screen Negative Negative (test code = 00812-1) Phencyclidine Screen Negative Negative (test code = 60992-8) pH, UA (test code = 7.5 5.0-8.0 5803-2) IDALIA (test code = IDALIA) DRUG CUTOFF CONC.Cocaine 300 ng/mL Cannabinoid 50 ng/mLBenzodiazepine 200 ng/mLBarbiturate 200 ng/mLPhencyclidine 25 ng/mLOpiate 300 ng/mLMethadone 300 ng/mLAmphetamine/ 1000 ng/mL Methamphetamine This assay provides an unconfirmed qualitative test result for the clinical management of patients in emergency situations. Chain of custody not maintained. Some ettr-dke-iflmldl medications, as well as adulterants, may cause inaccurate results. Clinical correlation should be applied. A more comprehensive drug screen or confirmation of a detected drug may be performed upon request.[employer] Boards Inspector ID - BS Lab Interpretation Normal (test code = 52085-3) [facility], [id number] 18:17:41 Test Item Value Reference Range Interpretation Comments Barbiturate Screen Negative Negative (test code = 52269-0) Benzodiazepine Screen Negative Negative (test code = 51080-4) Cocaine (Metab.) Negative Negative Screen (test code = 3397-7) Methadone Screen (test Negative Negative code = 16181-8) Opiate Screen (test Negative Negative code = 27902-4) Cannabinoid Screen Negative Negative (test code = 94782-5) Amph/Methamph Screen Negative Negative (test code = 99427-4) Phencyclidine Screen Negative Negative (test code = 89627-8) pH, UA (test code = 7.5 5.0-8.0 5803-2) IDALIA (test code = IDALIA) DRUG CUTOFF CONC.Cocaine 300 ng/mL Cannabinoid 50 ng/mLBenzodiazepine 200 ng/mLBarbiturate 200 ng/mLPhencyclidine 25 ng/mLOpiate 300 ng/mLMethadone 300 ng/mLAmphetamine/ 1000 ng/mL Methamphetamine This assay provides an unconfirmed qualitative test result for the clinical management of patients in emergency situations. Chain of custody not maintained. Some ssik-hqp-vfbwqil medications, as well as adulterants, may cause inaccurate results. Clinical correlation should be applied. A more comprehensive drug screen or confirmation of a detected drug may be performed upon request.Printed [employer] Boards Inspector ID - BS Lab Interpretation Normal (test code = 56856-2) [facility], [id number] 18:17:41 Test Item Value Reference Range Interpretation Comments Barbiturate Screen Negative Negative (test code = 49555-8) Benzodiazepine Screen Negative Negative (test code = 06556-3) Cocaine (Metab.) Negative Negative Screen (test code = 3397-7) Methadone Screen (test Negative Negative code = 51013-8) Opiate Screen (test Negative Negative code = 20638-4) Cannabinoid Screen Negative Negative (test code = 72938-4) Amph/Methamph Screen Negative Negative (test code = 37312-4) Phencyclidine Screen Negative Negative (test code = 19376-6) pH, UA (test code = 7.5 5.0-8.0 5803-2) IDALIA (test code = IDALIA) DRUG CUTOFF CONC.Cocaine 300 ng/mL Cannabinoid 50 ng/mLBenzodiazepine 200 ng/mLBarbiturate 200 ng/mLPhencyclidine 25 ng/mLOpiate 300 ng/mLMethadone 300 ng/mLAmphetamine/ 1000 ng/mL Methamphetamine This assay provides an unconfirmed qualitative test result for the clinical management of patients in emergency situations. Chain of custody not maintained. Some enhc-qox-mjdikgi medications, as well as adulterants, may cause inaccurate results. Clinical correlation should be applied. A more comprehensive drug screen or confirmation of a detected drug may be performed upon request.Printed Circuit Boards Inspector ID - BS Lab Interpretation Normal (test code = 04120-9) [facility], [id number] 18:17:41 Test Item Value Reference Range Interpretation Comments Barbiturate Screen Negative Negative (test code = 80194-1) Benzodiazepine Screen Negative Negative (test code = 08716-3) Cocaine (Metab.) Negative Negative Screen (test code = 3397-7) Methadone Screen (test Negative Negative code = 16298-8) Opiate Screen (test Negative Negative code = 71635-1) Cannabinoid Screen Negative Negative (test code = 46879-0) Amph/Methamph Screen Negative Negative (test code = 22947-0) Phencyclidine Screen Negative Negative (test code = 14898-2) pH, UA (test code = 7.5 5.0-8.0 5803-2) IDALIA (test code = IDALIA) DRUG CUTOFF CONC.Cocaine 300 ng/mL Cannabinoid 50 ng/mLBenzodiazepine 200 ng/mLBarbiturate 200 ng/mLPhencyclidine 25 ng/mLOpiate 300 ng/mLMethadone 300 ng/mLAmphetamine/ 1000 ng/mL Methamphetamine This assay provides an unconfirmed qualitative test result for the clinical management of patients in emergency situations. Chain of custody not maintained. Some ojvw-cvd-rghojsv medications, as well as adulterants, may cause inaccurate results. Clinical correlation should be applied. A more comprehensive drug screen or confirmation of a detected drug may be performed upon request.[employer] Boards Inspector ID - BS Lab Interpretation Normal (test code = 08558-1) [facility], [id number] 18:17:41 Test Item Value Reference Range Interpretation Comments Barbiturate Screen Negative Negative (test code = 95399-9) Benzodiazepine Screen Negative Negative (test code = 39417-6) Cocaine (Metab.) Negative Negative Screen (test code = 3397-7) Methadone Screen (test Negative Negative code = 13744-8) Opiate Screen (test Negative Negative code = 89020-8) Cannabinoid Screen Negative Negative (test code = 95427-2) Amph/Methamph Screen Negative Negative (test code = 17512-2) Phencyclidine Screen Negative Negative (test code = 63466-7) pH, UA (test code = 7.5 5.0-8.0 5803-2) IDALIA (test code = IDALIA) DRUG CUTOFF CONC.Cocaine 300 ng/mL Cannabinoid 50 ng/mLBenzodiazepine 200 ng/mLBarbiturate 200 ng/mLPhencyclidine 25 ng/mLOpiate 300 ng/mLMethadone 300 ng/mLAmphetamine/ 1000 ng/mL Methamphetamine This assay provides an unconfirmed qualitative test result for the clinical management of patients in emergency situations. Chain of custody not maintained. Some xieg-enc-kwlqaoh medications, as well as adulterants, may cause inaccurate results. Clinical correlation should be applied. A more comprehensive drug screen or confirmation of a detected drug may be performed upon request.[employer] Boards Inspector ID - BS Lab Interpretation Normal (test code = 41074-3) [facility], [id number] 18:17:41 Test Item Value Reference Range Interpretation [...] situations. Chain of custody not maintained. Some dmeb-pud-ligmclx medications, as well as adulterants, may cause inaccurate results. Clinical correlation should be applied. A more comprehensive drug screen or confirmation of a detected drug may be performed upon request.[employer] Boards Inspector ID - BSIMMUNOGLOBULIN G (IGG)2021-08-28 18:13:19 Test Item Value Reference Range Interpretation Comments IMMUNOGLOBULIN G (IGG) 1400 mg/dL See_Comment [Aut omated message] (BEAKER) (test code = The sy stem which 427) generated this result transmit hernandez reference range : 540-1,822. The reference range was not used to interpret this result as normal/abnormal . Printed [employer] Boards Inspector ID - BSIRON, TIBC, % SAT. (WITHOUT FERRITIN)2021-08-28 18:13:19 Test Item Value Reference Range Interpretation Comments IRON (BEAKER) (test code = 547) 139.0 ug/dL 40.0-160.0 TOTAL IRON BINDING CAPACITY 178 ug/dL 250-450 L (BEAKER) (test code = 769) IRON % SATURATION (2) (BEAKER) 78 % 20-55 H (test code = 2590) [employer] Boards Inspector ID - [id number] 16:36:26 Test Item Value Reference Range Interpretation Comments FERRITIN (BEAKER) (test code = 99238.56 ng/mL 5.00-275.00 H 361) [employer] Boards Inspector ID - BSOperator ID - [id number]-4-[id number] 14:45:11 Test Item Value Reference Range Interpretation Comments ALPHA-1 ANTITRYPSIN 130.90 mg/dL 90.00-200.00 Specimen slightly (BEAKER) (test code = hemoly zed 502) [employer] Boards Inspector ID - DBPOCT-GLUCOSE [id number] 14:23:23 Test Item Value Reference Range Interpretation Comments POC-GLUCOSE METER 97 mg/dL 70-110 : TESTED A T [facility] 6720 (BEAKER) (test code = [place] [employer], 1538) [address]: Printed Circuit Boards Inspector/Techni dakota ID = [id number] for José Miguel Larkin POCT-GLUCOSE [id number] 08:20:47 Test Item Value Reference Range Interpretation Comments POC-GLUCOSE METER 85 mg/dL 70-110 : TESTED A T [facility] 6720 (BEAD[facility]ED [facility]OT[facility]) (test code = [place] [employer] [facility], 1538) [address]: Printed Circuit Boards Inspector/Techni dakota ID = [id number] for José Miguel Larkin COMPREHENSIVE METABOLIC [id number] 06:21:17 Test Item Value Reference Range Interpretation [...] S NOT APPLICABLE FOR DIALYSIS PATIEN TS. [employer] Boards Inspector ID - [id number] 06:03:12 Test Item Value Reference Range Interpretation Comments MAGNESIUM (BEAKER) (test code = 1.8 mg/dL 1.6-2.6 627) [employer] Boards Inspector ID - DBCBC (HEMOGRAM ONLY)2021-08-28 05:04:44 Test [...] WBC 0-0 (test code = 413) POCT-GLUCOSE [id number] 22:30:31 Test Item Value Reference Range Interpretation Comments POC-GLUCOSE METER 99 mg/dL 70-110 : Notified RN/MD: TESTED (BEAKER) (test code = AT [facility] [address] [facility] 1538) [facility], [address]: Printed Circuit Boards Inspector/Techni dakota ID = [id number] for Artur Anders MR, ABDOMEN, [id number] 18:44:00Unlisted Reason for Exam - Click Yes and Enter Reason Below->No [facility] : 2000 Sex: [...] MDReport Verified Date/Time: 08/27/2021 18:44:20 Reading Location: [address] Body Reading Room MR, ABDOMEN, [id number] 18:44:00Pancreas protocol Unlisted Reason for Exam - Click Yes and Enter Reason Below->No Does the patient have an implanted electronic device?->No [facility] : 2000 Sex: MFINAL [...] MDReport Verified Date/Time: 08/27/2021 18:44:20 Reading Location: [facility] C013Y CT Body Reading Room COMPREHENSIVE METABOLIC [id number] 06:35:42 Test Item Value Reference Range Interpretation [...] S NOT APPLICABLE FOR DIALYSIS PATIEN TS. [employer]ed [employer] Boards Inspector ID - MARIBEL [id number] 06:34:17 Test Item Value Reference Range Interpretation Comments MAGNESIUM (BEAKER) (test code = 2.1 mg/dL 1.6-2.6 627) [employer] Boards Inspector ID - MARIBEL LCBC (HEMOGRAM ONLY)2021-08-27 06:06:14 [...] WBC 0-0 (BEAKER) (test code = 413) [id number] 12:41:39 Test Item Value Reference Range Interpretation Comments LIPASE (BEAKER) (test code = 749) 1190 U/L 8-78 H [employer] Boards Inspector ID - ALVINA MURINALYSIS W/ REFLEX URINE [id number] 07:27:57 Test Item Value Reference Range Interpretation [...] = 1521) SOURCE(BEAKER) (test code = 2795) [employer] Boards Inspector ID - [auto]Printed Circuit Boards Inspector ID - tech(CELLAVISION MANUAL DIFF)2021-08-26 03:09:42 Test [...] K/uL 0.00-0.00 H (CELLAVISION)(BEAKER) (test code = 0448) TOTAL COUNTED (BEAKER) (test code 100 = [...] CONCENTRATION Decreased (CELLAVISION)(BEAKER) (test code = 3438) Printed Circuit Boards Inspector ID - [id number] ID - Kyree comments: Slide comments:CBC W/PLT COUNT & AUTO [id number] 03:09:41 Test Item Value Reference Range Interpretation [...] (BEAKER) (test code = 413) COMPREHENSIVE METABOLIC [id number] 02:27:26 Test Item Value Reference Range Interpretation [...] S NOT APPLICABLE FOR DIALYSIS PATIEN TS. Print[employer] Boards Inspector ID - ALVINA [id number] 02:26:17 Test Item Value Reference Range Interpretation Comments TRIGLYCERIDES (BEAKER) (test code = 175 mg/dL 540) TRIGLYCERIDE REFERENCE RANGELow Risk <150Borderline Risk 150-199High Risk 200-499Very High Risk >=500Operator ID - ALVINA [id number] 02:26:16 Test Item Value Reference Range Interpretation Comments MAGNESIUM (BEAKER) (test code = 2.2 mg/dL 1.6-2.6 627) [employer] Boards Inspector ID - ALVINA MPROTHROMBIN TIME/[id number] 02:13:14 Test Item Value Reference Range Interpretation Comments PROTIME (BEAKER) 26.7 seconds 11.9-14.2 H (test code = 759) INR (BEAKER) (test 2.49 See_Comment [Automat ed message] code = 370) The system [employer] - [employer] Its Kind Flip [employer] generated this result transmitted ref erence range: <=5.90. The reference range was not used to int erpret this result as normal/abnormal . RECOMMENDED COUMADIN/WARFARIN INR THERAPY RANGESSTANDARD DOSE: 2.0 - 3.0 Includes: PROPHYLAXIS for venous thrombosis, systemic embolization; TREATMENT for venous thrombosis and/or pulmonary embolus.HIGH RISK: Target INR is 2.5-3.5 for patients with mechanical heart valves.
[2022-08-26 22:26] LABS: Absolute Lymphocytes (CBC) 1.3 K/uL (0.7-4.9); Hematocrit 41.2 % (39.6-49.0); Lymphocytes % 14.3 % (15.3-44.8); MCV 73.7 fL (80-100); MPV 7.5 fL (7.6-11.3)
[2022-08-26 22:28] LABS: Protime INR 1.3
[2022-08-26] MEDS ORDERED: MORPHINE 4 MG/ML SYR ONE (22:30)
[2022-08-26] MEDS ORDERED: ASPIRIN 81 MG CHEWABLE TABLET ONE (22:30)
[2022-08-26] MEDS ORDERED: ONDANSETRON 4 MG/2 ML VIAL ONE (22:30)
[2022-08-26] MEDS ORDERED: NA CHLORIDE 0.9% 1,000 ML ONE (22:30)
[2022-08-26 22:45] LABS: Bilirubin Direct 0.2 mg/dL (0-0.2); Bilirubin Total 0.5 mg/dL (0.2-1.0); Potassium 3.2 mEq/L (3.5-5.1); Protein, Total 7.7 g/dL (6.4-8.2); Troponin High Sensitivity 3.4 pg/mL (<58.9)
[2022-08-27] MEDS ORDERED: NA CHLORIDE 0.9% 250 ML ONE ×2 (00:10→00:32)
[2022-08-27] MEDS ORDERED: NA CHLORIDE 0.9% 100 ML ONE (00:10)
[2022-08-27] MEDS ORDERED: CEFTRIAXONE 1000 MG/VIAL ONE (00:10)
[2022-08-27] MEDS ORDERED: AZITHROMYCIN 500 MG INJ IVPB ONE (00:10)
[2022-08-27 01:21] LABS: SARS-COV-2 RT PCR NEGATIVE (NEGATIVE)
[2022-08-27] MEDS ORDERED: NA CHLORIDE 0.9% 1,000 ML ONE (02:07)
[2022-08-27] MEDS ORDERED: MORPHINE 4 MG/ML SYR ONE (02:07)
[2022-08-27] MEDS ORDERED: METOCLOPRAMIDE 10 MG/2mL INJ ONE (02:07)
[2022-08-27 03:08] LABS: Calcium Oxalate Crystals- Ur Few /HPF (None Seen); Specific Gravity > 1.030 (1.005-1.030); Urine Bacteria <20 /HPF (<20); Urine Bilirubin NEGATIVE (Negative); Urine Blood 2+ (Negative); Urine Clarity Clear (Clear); Urine Color Yellow (Yellow); Urine Glucose NEGATIVE (Negative); Urine Mucus 1+ /HPF (None Seen); Urine Protein 2+ (Negative); Urine Urobilinogen Normal (Normal)
[2022-08-27 03:09] LABS: Urine Granular Casts 0-5 /LPF (None Seen)
[2022-08-27] MEDS ORDERED: LORAZEPAM 1 MG TABLET ONE (04:17)
--- NOTE | 2022-08-27 05:36 | ER ---
Nurse's Notes [facility] Name: Sal Gomez Age: 22 yrs Sex: Male : 2000 Arrival Date: 08/26/2022 Time: 21:22 Bed 17 Private MD: Diagnosis: Dehydration;Acute sinus tachycardia, physical deconditioning, malnutrition, poor functional status, moderate dehydration Presentation: 08/26 21:29 Chief complaint: EMS states: Reports having swelling of the face and upper body about ea2 an hour ago reports tongue started to swell prior to EMS arrival. Pt denies allergies to anything. Pt was given .3 mg of epi per medics. Coronavirus screen: At this time, the client does not indicate any symptoms associated with coronavirus-19. Ebola Screen: No symptoms or risks identified at this time. Initial Sepsis Screen: Does the patient meet any 2 criteria? No. Patient's initial sepsis screen is negative. Does the patient have a suspected source of infection? No. Patient's initial sepsis screen is negative. Risk Assessment: Do you want to hurt yourself or someone else? Patient reports no desire to harm self or others. Onset of symptoms was August 26, 2022. 21:29 Method Of Arrival: EMS: [facility] ea2 21:29 Acuity: DANICA 2 ea2 Triage Assessment: 21:33 General: Appears uncomfortable, Behavior is appropriate for age. General: Appears ea2 unkempt. Pain: Denies pain. Neuro: Level of Consciousness is awake, alert, obeys commands, Oriented to person, place, time. Respiratory: Airway is patent Respiratory effort is even, unlabored, Respiratory pattern is regular, symmetrical. Historical: - Allergies: 21:32 No Known Allergies; ea2 - PMHx: 21:32 Rheumatoid Arthritis; PTSD; necrotizing pancreatitis; Lupus erythematosus; Hypertensive ea2 disorder; Cerebrovascular accident; borderline personlity disorder; - PSHx: 21:32 Multiple abdominal surgeries; Hip surgery; Appendectomy; ea2 - Immunization history:: Adult Immunizations up to date. - Social history:: Smoking status: Patient denies any tobacco usage or history of. - Family history:: not pertinent. Screenin:32 Abuse screen: Denies threats or abuse. Nutritional screening: No deficits noted. ea2 Tuberculosis screening: No symptoms or risk factors identified. Assessment: 22:00 Reassessment: Patient and/or family updated on plan of care and expected duration. Pain ea2 level reassessed. Patient is alert, oriented x 3, equal unlabored respirations, skin warm/dry/pink. 23:42 Reassessment: Pt offered to be cleaned up, pt refused care. ea2 08/27 02:49 Reassessment: Patient and/or family updated on plan of care and expected duration. Pain ea2 level reassessed. Patient is alert, oriented x 3, equal unlabored respirations, skin warm/dry/pink. 05:41 Reassessment: Patient and/or family updated on plan of care and expected duration. Pain ea2 level reassessed. Patient is alert, oriented x 3, equal unlabored respirations, skin warm/dry/pink. 07:23 Reassessment: Patient appears in no apparent distress at this time. Patient and/or kc6 family updated on plan of care and expected duration. Pain level reassessed. Patient is alert, oriented x 3, equal unlabored respirations, skin warm/dry/pink. attempted to call report to 4th floor. personal secretary stated the nurse will call me back. 07:38 Reassessment: attempted to call report to 4th floor. Kaylan states the nurses have 6 kc6 patients and no aide today so they are all busy getting morning vitals and will call me back as soon as they can. Vital Signs: 08/26 21:29 BP 168 / 116; Pulse 126; Resp 22; Temp 97.4; Pulse Ox 97% ; Weight 99.79 kg; Height 5 ea2 ft. 8 in. ; 23:06 BP 145 / 112; Pulse 118; Resp 20; Pulse Ox 98% ; ea2 23:35 BP 145 / 112; Pulse 115; Resp 21; Pulse Ox 95% on R/A; ea2 08/27 00:10 BP 146 / 99; Pulse 121; Resp 20; Pulse Ox 96% on R/A; ea2 00:50 BP 143 / 99; Pulse 105; Resp 18; Pulse Ox 95% ; ea2 02:49 BP 123 / 87; Pulse 104; Resp 20; Pulse Ox 98% on R/A; ea2 03:40 BP 133 / 100; Pulse 108; Resp 18; Pulse Ox 96% ; ea2 05:20 BP 111 / 59; Pulse 88; Resp 18; Pulse Ox 97% ; ea2 08/26 21:29 Body Mass Index 33.45 (99.79 kg, 172.72 cm) ea2 ED Course: 08/26 21:22 Patient arrived in ED. ds4 21:29 Regi Hernandez RN is Primary Nurse. ea2 21:31 Daryl Massey MD is Attending Physician. sp4 21:32 Triage completed. ea2 21:33 Patient has correct armband on for positive identification. Placed in gown. Bed in low ea2 position. 21:33 Arm band placed on right wrist. ea2 22:53 XRAY Chest (1 view) In Process Unspecified. EDMS 04 00:11 No provider procedures requiring assistance completed. ea2 02:17 CT Chest, Abdomen, Pelvis - W/Contrast In Process Unspecified. EDMS 05:34 Mere Caro MD is Hospitalizing Provider. sp4 06:34 Patient admitted, IV remains in place. ea2 07:00 Report received from ROSA Deluna MSN. kc6 Administered Medications: 08/26 21:39 Drug: diphenhydrAMINE PO 50 mg Route: PO; ea2 08/27 03:11 Follow up: Response: No adverse reaction ea2 08/26 21:39 Drug: predniSONE PO 40 mg Route: PO; ea2 08/27 03:11 Follow up: Response: No adverse reaction ea2 08/26 21:39 Drug: Famotidine PO 20 mg Route: PO; ea2 08/27 03:11 Follow up: Response: No adverse reaction 2 08/26 22:36 Drug: Aspirin PO Chewable Tablet 324 mg Route: PO; ea2 08/27 03:11 Follow up: Response: No adverse reaction ea2 08/26 22:37 Drug: NS 0.9% IV 1000 ml Route: IV; Rate: 1 bolus; Site: right antecubital; ea2 08/27 06:35 Follow up: IV Status: Completed infusion ea2 08/26 22:37 Drug: morphine IVP or IV 4 mg Route: IVP; Infused Over: 4 mins; Site: right antecubital;ea2 08/27 01:57 Follow up: Response: No adverse reaction ea2 08/26 22:37 Drug: Ondansetron IVP 4 mg Route: IVP; Site: right antecubital; ea2 08/27 01:56 Follow up: Response: No adverse reaction ea2 03:11 Follow up: Response: No adverse reaction ea2 00:09 Drug: Rocephin - Rocephin (cefTRIAXone) IVPB 1 grams Route: IVPB; Infused Over: 30 ea2 mins; Site: right antecubital; 06:35 Follow up: IV Status: Completed infusion ea2 00:30 Drug: Zithromax IVPB 500 mg Route: IVPB; Infused Over: 1 hrs; Site: right antecubital; ea2 06:35 Follow up: Response: No adverse reaction; IV Status: Completed infusion ea2 02:28 Drug: metoCLOPramide IVP 10 mg Route: IVP; Site: right antecubital; ea2 03:14 Follow up: Response: No adverse reaction ea2 02:28 Drug: NS 0.9% IV 1000 ml Route: IV; Rate: 125 ml/hr; Site: right antecubital; ea2 03:12 Follow up: Response: No adverse reaction; IV Status: Completed infusion ea2 02:29 Drug: morphine IVP or IV 4 mg Route: IVP; Infused Over: 4 mins; Site: right antecubital;ea2 03:12 Follow up: Response: No adverse reaction ea2 04:14 Drug: LORazepam PO 2 mg Route: PO; ea2 05:41 Follow up: Response: Marked relief of symptoms ea2 Medication: 08:01 VIS not applicable for this client. kc6 Outcome: 05:36 Decision to Hospitalize by Provider. sp4 06:34 Instructed on the need for admit, Demonstrated understanding of instructions. ea2 08:01 Admitted to Med/surg accompanied by charles, via stretcher, room 412, with chart, Report kc6 called to ROSA Mohamud 08:01 Condition: improved 08:36 Patient left the ED. kc6 Signatures: Dispatcher [employer] EDCleve Foote4 Kathryn Nascimento RN RN kc6 Daryl Massey MD MD sp4 Rgei Hernandez RN RN ea2
--- NOTE | 2022-08-27 05:36 | EDPHYS ---
Physician Documentation [facility] Name: Sal Gomez Age: 22 yrs Sex: Male : 2000 Arrival Date: 08/26/2022 Time: 21:22 Bed 17 Private MD: ED Physician Daryl Massey HPI: 08/26 21:32 This 22 yrs old Male presents to ER via Unassigned with complaints of sp4 allergic reaction . 21:50 22-year-old male with extensive list of past medical problems including lupus and lupus sp4 associated CVA presents with EMS for complaint of acute abdominal ache associated with facial tingling and also red skin rash thought to be allergic reaction. Patient has a history of right hip avascular necrosis and he is nonambulatory and a wheelchair-bound male. . Patient also has moderate to severe psoriasis. Historical: - Allergies: 21:32 No Known Allergies; ea2 - PMHx: 21:32 Rheumatoid Arthritis; PTSD; necrotizing pancreatitis; Lupus erythematosus; Hypertensive ea2 disorder; Cerebrovascular accident; borderline personlity disorder; - PSHx: 21:32 Multiple abdominal surgeries; Hip surgery; Appendectomy; ea2 - Immunization history:: Adult Immunizations up to date. - Social history:: Smoking status: Patient denies any tobacco usage or history of. - Family history:: not pertinent. ROS: 21:50 Constitutional: Negative for fever, chills, and weight loss, abdominal ache, facial sp4 tingling, rash Eyes: Negative for injury, pain, redness, and discharge, ENT: Negative for injury, pain, and discharge, Neck: Negative for injury, pain, and swelling, Cardiovascular: Negative for chest pain, palpitations, and edema, Respiratory: Negative for shortness of breath, cough, wheezing, and pleuritic chest pain, Abdomen/GI: Negative for nausea, vomiting, diarrhea, and constipation, positive for abdominal ache Back: Negative for injury and pain, : Negative for injury, bleeding, discharge, and swelling, MS/Extremity: Negative for injury and deformity, Skin: Negative for injury, rash, and discoloration, Neuro: Negative for headache, weakness, numbness, tingling, and seizure, Psych: Negative for depression, anxiety, Allergy/Immunology: Negative for hives, rash, and allergies Endocrine: Negative for neck swelling, polydipsia, polyuria, polyphagia, and weight changes Hematologic/Lymphatic: Negative for swollen nodes, abnormal bleeding, and unusual bruising Exam: 21:50 Constitutional: This is a well developed, well nourished patient who is awake, alert, sp4 and in no acute distress. Moderate physical debility associated with prolonged immobility, diffuse psoriasis, poor hygiene. Nonambulatory male Head/Face: Normocephalic, atraumatic. Eyes: Pupils equal round and reactive to light, extra-ocular motions intact. Lids and lashes normal. Conjunctiva and sclera are not injected. Cornea within normal limits. Periorbital areas with no swelling, redness, or edema. ENT: Nares patent. No nasal discharge, no septal abnormalities noted. Tympanic membranes are normal and external auditory canals are clear. Oropharynx with no redness, swelling, or masses, exudates, or evidence of obstruction, uvula midline. Mucous membranes moist. Poor dentition Neck: Trachea midline, no thyromegaly or masses palpated, and no cervical lymphadenopathy. Supple, full range of motion without nuchal rigidity, or vertebral point tenderness. No Meningismus. Chest/axilla: Normal chest wall appearance and motion. Nontender with no deformity. No lesions are appreciated. Cardiovascular: Regular rhythm with a normal S1 and S2. No gallops, murmurs, or rubs. Normal PMI, no JVD. No pulse deficits. Regular tachycardia Respiratory: Lungs have equal breath sounds bilaterally, clear to auscultation and percussion. No rales, rhonchi or wheezes noted. No increased work of breathing, no retractions or nasal flaring. Abdomen/GI: Soft, non-tender, with normal bowel sounds. No distension or tympany. No guarding or rebound. No evidence of tenderness throughout. Back: No spinal tenderness. No costovertebral tenderness. Male : Normal genitalia with no discharge or lesions. Skin: Warm, dry with normal turgor. Normal color with no evidence of cellulitis. Diffuse psoriasis and eczema from poor personal hygiene MS/ Extremity: Pulses equal, no cyanosis. Neurovascular intact. Full, normal range of motion. Neuro: Awake and alert, GCS 15, oriented to person, place, time, and situation. Cranial nerves II-XII grossly intact. Motor strength 5/5 in all extremities. Sensory grossly intact. Psych: Awake, alert, with orientation to person, place and time. Behavior, mood, and affect are within normal limits 23:54 Male : Normal genitalia with no discharge or lesions. Very poor hygiene with dry sp4 stool caked onto the patient. 08/27 05:31 ECG was reviewed by the Attending Physician. EKG time 2233 sinus rhythm at the rate sp4 of 121 sinus tachycardia otherwise unremarkable Vital Signs: 08/26 21:29 BP 168 / 116; Pulse 126; Resp 22; Temp 97.4; Pulse Ox 97% ; Weight 99.79 kg; Height 5 ea2 ft. 8 in. ; 23:06 BP 145 / 112; Pulse 118; Resp 20; Pulse Ox 98% ; ea2 23:35 BP 145 / 112; Pulse 115; Resp 21; Pulse Ox 95% on R/A; ea2 08/27 00:10 BP 146 / 99; Pulse 121; Resp 20; Pulse Ox 96% on R/A; ea2 00:50 BP 143 / 99; Pulse 105; Resp 18; Pulse Ox 95% ; ea2 02:49 BP 123 / 87; Pulse 104; Resp 20; Pulse Ox 98% on R/A; ea2 03:40 BP 133 / 100; Pulse 108; Resp 18; Pulse Ox 96% ; ea2 05:20 BP 111 / 59; Pulse 88; Resp 18; Pulse Ox 97% ; ea2 08/26 21:29 Body Mass Index 33.45 (99.79 kg, 172.72 cm) ea2 MDM: 08/26 21:32 Patient medically screened. sp4 23:54 Differential Diagnosis sepsis, flu. sp4 08/27 05:31 Data reviewed: vital signs, nurses notes, EMS record, lab test result(s), EKG, sp4 radiologic studies, CT scan, plain films. Consideration of Admission/Observation Patient was admitted/placed on observation. Escalation of care including admission/observation considered. Management of patient was discussed with the following: Hospitalist: Hospitalist. ED course: Patient's CAT scan has revealed trace stranding near pancreatic tail that he is decreased compared to the prior study may represent resolving pancreatitis, there is splenomegaly, multiple enlarged inguinal iliac lymph nodes relatively unchanged, several enlarged axillary lymph nodes bilaterally of uncertain chronicity. Underlying malignant process such as lymphoma not excluded clinical correlation recommended, several degenerative changes of the left hip moderate to severe bilateral hip joint arthritis, no acute findings in the chest. Patient remains tachycardic and at this time warrants admission for moderate dehydration and also for further assessment of the above-mentioned problem.. 08/26 21:50 Order name: Basic Metabolic Panel; Complete Time: 23:19 4 08/26 21:50 Order name: CBC with Diff; Complete Time: 23:19 4 08/26 21:50 Order name: LFT's; Complete Time: 23:19 08/26 21:50 Order name: NT PRO-BNP; Complete Time: 23:19 08/26 21:50 Order name: PT-INR; Complete Time: 23:19 08/26 21:50 Order name: Troponin HS; Complete Time: 23:19 08/26 23:57 Order name: COVID-19/FLU A+B; Complete Time: 01:45 08/26 23:57 Order name: Urinalysis W/Microscopic; Complete Time: 05:26 08/26 23:58 Order name: Blood Culture Adult (2) 08/27 03:03 Order name: Lipase; Complete Time: 05:26 08/26 21:50 Order name: XRAY Chest (1 view) 08/27 00:34 Order name: CT Chest, Abdomen, Pelvis - W/Contrast 08/26 21:50 Order name: EKG; Complete Time: 21:50 08/26 21:50 Order name: Cardiac monitoring; Complete Time: 22:38 08/26 21:50 Order name: EKG - Nurse/Tech; Complete Time: 22:38 08/26 21:50 Order name: IV Saline Lock; Complete Time: 22:38 08/26 21:50 Order name: Labs collected and sent; Complete Time: 22:38 08/26 21:50 Order name: O2 Per Protocol; Complete Time: 22:38 08/26 21:50 Order name: O2 Sat Monitoring; Complete Time: 22:38 EC:31 Rate is 121 beats/min. Rhythm is regular, Sinus tachycardia. QRS [place] is Normal. LA sp4 interval is normal. QRS interval is normal. QT interval is normal. T waves are Normal. No ST changes noted. Clinical impression: No evidence of ischemia. Interpreted by me. Administered Medications: 08/26 21:39 Drug: diphenhydrAMINE PO 50 mg Route: PO; ea2 08/27 03:11 Follow up: Response: No adverse reaction ea2 08/26 21:39 Drug: predniSONE PO 40 mg Route: PO; ea2 08/27 03:11 Follow up: Response: No adverse reaction ea2 08/26 21:39 Drug: Famotidine PO 20 mg Route: PO; ea2 08/27 03:11 Follow up: Response: No adverse reaction ea2 08/26 22:36 Drug: Aspirin PO Chewable Tablet 324 mg Route: PO; ea2 08/27 03:11 Follow up: Response: No adverse reaction ea2 08/26 22:37 Drug: NS 0.9% IV 1000 ml Route: IV; Rate: 1 bolus; Site: right antecubital; ea2 08/27 06:35 Follow up: IV Status: Completed infusion ea2 08/26 22:37 Drug: morphine IVP or IV 4 mg Route: IVP; Infused Over: 4 mins; Site: right antecubital;ea2 08/27 01:57 Follow up: Response: No adverse reaction ea2 08/26 22:37 Drug: Ondansetron IVP 4 mg Route: IVP; Site: right antecubital; ea2 08/27 01:56 Follow up: Response: No adverse reaction ea2 03:11 Follow up: Response: No adverse reaction ea2 00:09 Drug: Rocephin - Rocephin (cefTRIAXone) IVPB 1 grams Route: IVPB; Infused Over: 30 ea2 mins; Site: right antecubital; 06:35 Follow up: IV Status: Completed infusion ea2 00:30 Drug: Zithromax IVPB 500 mg Route: IVPB; Infused Over: 1 hrs; Site: right antecubital; ea2 06:35 Follow up: Response: No adverse reaction; IV Status: Completed infusion ea2 02:28 Drug: metoCLOPramide IVP 10 mg Route: IVP; Site: right antecubital; ea2 03:14 Follow up: Response: No adverse reaction ea2 02:28 Drug: NS 0.9% IV 1000 ml Route: IV; Rate: 125 ml/hr; Site: right antecubital; ea2 03:12 Follow up: Response: No adverse reaction; IV Status: Completed infusion ea2 02:29 Drug: morphine IVP or IV 4 mg Route: IVP; Infused Over: 4 mins; Site: right antecubital;ea2 03:12 Follow up: Response: No adverse reaction ea2 04:14 Drug: LORazepam PO 2 mg Route: PO; ea2 05:41 Follow up: Response: Marked relief of symptoms ea2 Disposition Summary: 08/27/22 05:36 Hospitalization Ordered Hospitalization Status: Inpatient Admission sp4 Provider: Mere Caro sp4 [facility] sp[facility] Condition: Stable sp4 Problem: new sp4 Symptoms: have improved sp4 Bed/Room Type: Standard sp4 Room Assignment: 412(08/27/22 05:48) mw Diagnosis - Dehydration sp4 - Acute sinus tachycardia, physical deconditioning, malnutrition, poor functional sp4 status, moderate dehydration Forms: - Medication Reconciliation Form sp4 - SBAR form sp4 Signatures: Dispatcher [employer] EDJaniya Osman RN RN Daryl Bowman MD MD sp4 Regi Hernandez RN RN ea2 Corrections: (The following items were deleted from the chart) 05:48 05:36 sp4 mw
--- NOTE | 2022-08-27 05:42 | P.HP ---
Certification for Inpatient Patient admitted to: Observation With expected LOS: <2 Midnights Patient will require the following post-hospital care: Group Home Practitioner: I am a practitioner with admitting privileges, knowledge of patient current condition, hospital course, and medical plan of care. Services: Services provided to patient in accordance with Admission requirements found in Title 42 Section 412.3 of the Code of Federal Regulations <Deloris Gray - Last Filed: 08/27/22 05:32> Patient History Date of Service: 08/27/22 Primary Care Provider: Willard Crouch Reason for admission: Dehydration, Intractable Abdominal Pain History of Present Illness: Patient is a 22 year old male, wheelchair bound, secondary to right hip avascular necrosis, RA, SLE, hypertension, PTSD, pancreatitis who presented to the emergency department with abdominal pain. He was noted to have extremely poor hygiene, tachycardic. Labs significant for sodium 135, potassium 3.2, covid/flu negative. CT abdomen pelvis showed "trace stranding near the pancreatic tail appears decreased compared to prior study and may represent resolving pancreatitis, however underlying acute pancreatitis not excluded. Splenomegaly. Multiple enlarged inguinal/iliac chain lymph nodes again demonstrated appearing relatively unchanged. In addition, there are several enlarged axillary lymph nodes bilaterally of uncertain chronicity. Underlying malignant process such as lymphoma not excluded and clinical correlation is recommended. Follow-up imaging can be obtained as appropriate. Severe degenerative changes of the left hip. Small bilateral hip joint effusions" He received IV fluids and several rounds of pain medications in the emergency department without resolution of abdominal pain or tachycardia. For these reasons, ED provider wishes to admit patient for further management. Home medications list reviewed: Yes - Past Medical/Surgical History Diabetic: No -: Necrotizing Pancreatitis -: PTSD -: Rheumatoid Arthritis -: SLE -: Hypertension -: CVA -: BPD -: multiple abdominal surgeries -: appendectomy -: hip surgery Psychosocial/ Personal History: Patient lives at home alone. - Family History Family History: Reviewed- Non-Contributory - Social History Smoking Status: Never smoker Alcohol use: No CD- Drugs: No Caffeine use: No Place of Residence: Home <Deloris Gray - Last Filed: 08/27/22 05:32> Date of Service: 08/28/22 <Mere Caro - Last Filed: 08/28/22 06:36> Review of Systems Gastrointestinal: Abdominal Pain <Deloris Gray - Last Filed: 08/27/22 05:32> Physical Examination - Vital Signs Temperature: 97.4 F Blood Pressure: 111/59 Pulse: 88 Respirations: 18 Pulse Ox (%): 97 - Physical Exam General: Alert, In no apparent distress HEENT: Atraumatic, EOMI, Sclerae nonicteric Neck: Supple, 2+ carotid pulse no bruit Respiratory: Clear to auscultation bilaterally, Normal air movement Cardiovascular: Regular rate/rhythm, Normal S1 S2 Gastrointestinal: Normal bowel sounds, No tenderness Musculoskeletal: No tenderness Integumentary: No rashes Neurological: Normal speech, Normal affect - Studies Laboratory Data (last 24 hrs) 08/27/22 03:16: Lipase 20 08/26/22 22:13: PT 14.3 H, INR 1.30 08/26/22 22:13: WBC 9.00, Hgb 14.0, Hct 41.2, Plt Count 439 H 08/26/22 22:13: Sodium 135 L, Potassium 3.2 L, BUN 10, Creatinine 0.61 L, Glucos e 125 H, Total Bilirubin 0.5, AST 13 L, ALT 11 L, Alkaline Phosphatase 71 <Deloris Gray - Last Filed: 08/27/22 05:32> - Studies Microbiology Data (last 24 hrs): 08/27/22 01:59 Blood - Blood Anaerobic Blood Culture - Final <GordoMere Cohen - Last Filed: 08/28/22 06:36> Assessment and Plan - Problems (Diagnosis) (1) Abdominal pain Current Visit: Yes Status: Acute Qualifiers: Abdominal location: generalized Qualified Code(s): R10.84 - Generalized abdominal pain (2) Dehydration Current Visit: Yes Status: Acute (3) Tachycardia Current Visit: Yes Status: Acute (4) Rheumatoid arthritis Current Visit: Yes Status: Chronic (5) Lupus Current Visit: Yes Status: Acute (6) Hypertension Current Visit: Yes Status: Chronic Qualifiers: Hypertension type: primary hypertension Qualified Code(s): I10 - Essential (primary) hypertension - Plan Patient is admitted for further management of dehydration, intractable abdominal pain. Biggest concern from ED provider was patient's inability to care for himself. Will consult case management for placement. Abdominal pain could be secondary to sequela of patient's chronic pancreatitis. Continue IV hydration and pain medications as needed. Reconcile and continue home medications. Monitor and replete electrolytes per protocol. SCDs for VTE prophylaxis. Full code. Discharge Plan: Home Plan to discharge in: 24 Hours - Advance Directives Does patient have a Living Will: No Does patient have a Durable POA for Healthcare: No - Code Status/Comfort Care Code Status Assessed: Yes Code Status: Full Code Critical Care: No Time Spent Managing Pts Care (In Minutes): 50 <Deloris Gray - Last Filed: 08/27/22 05:32> Date of Service: 08/28/22 Had a long conversation with patient. Patient was very tearful. He states he is not able to care for himself whatsoever. He states that he needs a roommate to help clean himself and feed himself. He is not able to do hardly any of his activities of daily living. He states that he has a chronic disability and he has not been able to recover from his rheumatoid arthritis or his lupus. Will recheck the case management as patient is requesting long-term living at a half-way. <Mere Caro - Last Filed: 08/28/22 06:36>
--- NOTE | 2022-08-27 08:33 | EKG ---
Test Date: 2022-08-26 Test Time: 22:33:13 Venipuncturist: DINORAH MEASUREMENT RESULTS: Intervals: Rate: 121 TX: 158 QRSD: 102 QT: 326 QTc: 462 [place]: P: 91 TX: 158 QRS: 111 T: -3 INTERPRETIVE STATEMENTS: Suspect arm lead reversal, interpretation assumes no reversal Sinus tachycardia Nonspecific T wave abnormality Abnormal ECG Compared to ECG 02/22/2022 18:09:36 T-wave abnormality now present Electronically Signed On 08-27-22 08:32:03 CDT by Mitchell Villeda
[2022-08-27 09:22] VITALS: BMI 33.4
[2022-08-27 11:35] LABS: Absolute Lymphocytes (CBC) 0.7 K/uL (0.7-4.9); Lymphocytes % 12.7 % (15.3-44.8); MCV 74.5 fL (80-100); MPV 7.8 fL (7.6-11.3)
[2022-08-27 11:54] LABS: Albumin 2.7 g/dL (3.4-5.0); Bilirubin Total 0.2 mg/dL (0.2-1.0); Magnesium 1.6 mg/dL (1.6-2.4); Potassium 3.5 mEq/L (3.5-5.1); Protein, Total 7.2 g/dL (6.4-8.2)
--- NOTE | 2022-08-27 14:27 | RAD REPORT ---
EXAM DESCRIPTION: RAD - Chest Single View - 08/26/2022 10:51 pm CLINICAL HISTORY: 22 years Male CHEST PAIN COMPARISON: None TECHNIQUE: AP view of the chest was obtained. FINDINGS: Cardiac silhouette is prominent in size. Central vessels are moderately increased. Infrahilar airspace opacities bilaterally. No effusions bilaterally. No pneumothorax. IMPRESSION: Atelectatic change versus infiltrate infrahilar regions bilaterally. Electronically signed by: Jessica Fung MD 08/26/2022 11:26 PM CDT Due to temporary technical issues with the PACS/Fluency reporting system, reports are being signed by the in house radiologist without review as a courtesy to ensure prompt reporting. The interpreting r adiologist is fully responsible for the content of the report.
--- NOTE | 2022-08-27 16:49 | RAD REPORT ---
EXAM DESCRIPTION: CT - Chest Abdomen Pelvis W Cont - 08/27/2022 6:52 am CLINICAL HISTORY: ABDOMINAL DISTENTION COMPARISON: None Available TECHNIQUE: Multiple helical axial tomographic images were obtained of the chest, abdomen, and pelvis following administration of intravenous contrast. Coronal and sagittal reformatted images were obtai leroy. This exam was performed according to our departmental dose-optimization program, which includes autom ated exposure control, adjustment of the mA and/or kV according to patient size and/or use of iterati ve reconstruction technique. FINDINGS: Chest: Thyroid gland: unremarkable. Axilla: Several enlarged axillary lymph nodes are present. Pulmonary arteries: Central pulmonary arteries appear grossly patent. Peripheral pulmonary arteries a re not well evaluated due to suboptimal enhancement. Aorta: No evidence of aortic dissection or aneurysm. Mediastinum: Unremarkable. No adenopathy. Heart: Heart is normal in size. Lungs/airways: No consolidation. Airways are patent. Pleural spaces: No significant pleural effusion. No pneumothorax. Osseous: Chronic appearing endplate irregularities of the thoracic spine are noted. Right hip joint s pace narrowing noted. Soft tissues: Unremarkable. Abdomen and pelvis: Lung bases: Mild dependent atelectasis is noted. Liver: Homogenous attenuation is noted. Gallbladder/biliary: Appears unremarkable Pancreas: There is trace stranding near the pancreatic tail which appears decreased. No evidence of ductal enlargement. Spleen: Appears mildly enlarged. Several calcified granulomas are present. Adrenals: Unremarkable. Kidneys and ureters: No evidence of hydronephrosis. Normal enhancement. Bladder: Unremarkable. Pelvic organs: Unremarkable. Bowel: No evidence of bowel obstruction. No bowel wall thickening. Appendix is not seen. Vasculature: Unremarkable. Peritoneum: No free air. No significant free fluid. Lymph nodes: Several enlarged lymph nodes in the inguinal regions and along the iliac chains are agai n demonstrated. Long Term node along the right external iliac chain measures 2.7 cm x 2.4 cm (se john 201, image 115). Soft tissues: Unremarkable. Bones: Severe degenerative joint space narrowing of the left hip noted with osteophyte formation and subcortical cyst formation. There are small bilateral hip joint effusions. IMPRESSION: 1. Trace stranding near the pancreatic tail appears decreased compared to prior study an d may represent resolving pancreatitis, however underlying acute pancreatitis not excluded. 2. Splenomegaly. 3. Multiple enlarged inguinal/iliac chain lymph nodes again demonstrated appearing relatively unchang ed. In addition, there are several enlarged axillary lymph nodes bilaterally of uncertain chronicity. Underlying malignant process such as lymphoma not excluded and clinical correlation is recommended. Follow-up imaging can be obtained as appropriate. 4. Severe degenerative changes of the left hip. Small bilateral hip joint effusions. 5. No acute findings in the chest. Electronically signed by: Neftali Smith MD 08/27/2022 4:17 AM CDT Due to temporary technical issues with the PACS/Fluency reporting system, reports are being signed by the in house radiologist without review as a courtesy to ensure prompt reporting. The interpreting r adiologist is fully responsible for the content of the report.
[2022-08-27] MEDS ORDERED: MORPHINE 4 MG/ML SYR IV ONE (17:20)
[2022-08-27] MEDS ORDERED: ACETAMINOPHEN 500 MG TAB PO PRN (19:16)
[2022-08-27] MEDS: clonazePAM 0.5 MG TAB PO SCH (21:05)
[2022-08-27] MEDS: NA CHLORIDE 0.9% 1,000 ML IV SCH (21:05)
[2022-08-27] MEDS: HYDROCORTISONE SUC 100 MG INJ IV ONE (21:05)
[2022-08-27] MEDS: HYDROCODONE/APAP 10/325 TAB PO PRN (21:06)
[2022-08-27] MEDS: TRAZODONE 150 MG TAB PO PRN (21:06)
[2022-08-28] MEDS ORDERED: MORPHINE 4 MG/ML SYR IV ONE (01:32)
[2022-08-28] MEDS: NA CHLORIDE 0.9% 1,000 ML IV SCH ×2 (04:16→16:53)
[2022-08-28] MEDS: HYDROCODONE/APAP 10/325 TAB PO PRN ×4 (04:16→22:22)
[2022-08-28 05:59] LABS: Absolute Lymphocytes (CBC) 1.1 K/uL (0.7-4.9); Hematocrit 33.8 % (39.6-49.0); Lymphocytes % 15.2 % (15.3-44.8); MCV 74.3 fL (80-100); MPV 7.5 fL (7.6-11.3); RBC Red Blood Cell Count 4.55 M/uL (4.33-5.43)
[2022-08-28 06:26] LABS: Magnesium 1.6 mg/dL (1.6-2.4); Phosphorus 2.8 mg/dL (2.5-4.9); Potassium 3.7 mEq/L (3.5-5.1); Thyroid Stimulating Hormone 1.17 uIU/mL (0.358-3.740)
[2022-08-28] MEDS ORDERED: MAGNESIUM SULFATE 1 gm IVPB 1 GM/100 ML BAG IV ONE (06:29)
[2022-08-28] MEDS ORDERED: POTASSIUM CL SA 10 MEQ TAB PO ONE (06:30)
[2022-08-28] MEDS: ONDANSETRON 4 MG/2 ML VIAL IV PRN ×2 (06:43→18:20)
[2022-08-28 08:07] LABS: Blood Morphology Comment NOT SEEN (NOT SEEN); Platelet Estimate ADEQ; White Blood Cell Scan OK (OK)
[2022-08-28] MEDS: HYDROCORTISONE SUC 100 MG INJ IV SCH ×2 (09:03→20:24)
[2022-08-28] MEDS: clonazePAM 0.5 MG TAB PO SCH ×3 (09:03→20:24)
[2022-08-28 17:46] LABS: Rheumatoid Factor POS (NEG); Rheumatoid Factor Titer 1:512(2048 RF IU/mL)
[2022-08-29] MEDS: NA CHLORIDE 0.9% 1,000 ML IV SCH ×2 (02:41→11:16)
[2022-08-29] MEDS: HYDROCODONE/APAP 10/325 TAB PO PRN (05:25)
[2022-08-29] MEDS: ONDANSETRON 4 MG/2 ML VIAL IV PRN ×3 (05:26→22:50)
[2022-08-29 07:15] LABS: Magnesium 1.8 mg/dL (1.6-2.4); Potassium 3.7 mEq/L (3.5-5.1)
[2022-08-29] MEDS: clonazePAM 0.5 MG TAB PO SCH ×3 (08:45→21:29)
[2022-08-29] MEDS: HYDROCORTISONE SUC 100 MG INJ IV SCH ×2 (08:45→21:00)
[2022-08-29] MEDS ORDERED: OXYCODONE HCL 5 MG TAB PO PRN (10:39)
[2022-08-29] MEDS: PANTOPRAZOLE 40MG TABLET PO SCH (12:20)
[2022-08-29] MEDS: OXYCODONE HCL 5 MG TAB PO PRN ×2 (16:24→22:26)
--- NOTE | 2022-08-29 18:21 | P.PN ---
Subjective Date of Service: 08/29/22 Primary Care Provider: Willard Crouch Chief Complaint: Dehydration, Intractable Abdominal Pain No acute events overnight. He reports significant pain in his right hip. He requested to be switched to his home dose of oxycodone. He is awaiting acceptance into [facility]. He denies any chest pain or shortness of breath. Review of Systems 10-point ROS is otherwise unremarkable General: Weakness (generalized) Musculoskeletal: Leg Pain (right hip) Physical Examination - Vital Signs Temperature: 98.1 F Blood Pressure: 172/100 Pulse: 98 Respirations: 16 Pulse Ox (%): 95 - Physical Exam General: Alert, In no apparent distress, Oriented x3 HEENT: Atraumatic, EOMI, Sclerae nonicteric Respiratory: Clear to auscultation bilaterally, Normal air movement Cardiovascular: No edema, Regular rate/rhythm, No murmurs Gastrointestinal: Normal bowel sounds, Non-distended, No tenderness Musculoskeletal: No clubbing Integumentary: No rashes Neurological: Normal speech, Normal affect Assessment And Plan - Plan # Significant Debility/Deconditioning secondary to Right Hip Avascular Necrosis, Rheumatoid Arthritis, and Systemic Lupus Erythematosus # Chronic Pancreatitis - Per Dr. Caro, he is dependent on others for nearly all activities of daily living - CM consulted for assistance with SNF placement - Continue hydrocortisone for now due to concern for RA/SLE flare-up - CRP = 49.8 - PRN pain control with acetaminophen + oxycodone # Post-Traumatic Stress Disorder # Bipolar Disorder - Continue clonazepam # Hypertension - Reconcile home medications once verified # Inguinal/Iliac Lymphadenopathy - nonspecific, but cannot exclude Malignancy - CT chest/abdomen/pelvis = "1. Trace stranding near the pancreatic tail appears decreased compared to prior study and may represent resolving pancreatitis, however underlying acute pancreatitis not excluded. 2. Splenomegaly. 3. Multiple enlarged inguinal/iliac chain lymph nodes again demonstrated appearing relatively unchanged. In addition, there are several enlarged axillary lymph nodes bilaterally of uncertain chronicity. Underlying malignant process such as lymphoma not excluded and clinical correlation is recommended. Follow-up imaging can be obtained as appropriate. 4. Severe degenerative changes of the left hip. Small bilateral hip joint effusions. 5. No acute findings in the chest." - Follow-up with PCP for further evaluation Kehinde Wood M.D.
[2022-08-29 19:07] LABS: Urine Bacteria None Seen /HPF (<20); Urine Bilirubin NEGATIVE (Negative); Urine Blood 2+ (Negative); Urine Clarity Clear (Clear); Urine Color Light-Yellow (Yellow); Urine Glucose NEGATIVE (Negative); Urine Mucus Slight /HPF (None Seen); Urine Protein 1+ (Negative); Urine RBC 21-50 /HPF (None Seen); Urine Urobilinogen Normal (Normal)
[2022-08-29] MEDS: HYDROCORTISONE SUC 100 MG INJ IV ONE (21:29)
[2022-08-30] MEDS: ONDANSETRON 4 MG/2 ML VIAL IV PRN ×2 (05:52→13:14)
[2022-08-30] MEDS: OXYCODONE HCL 5 MG TAB PO PRN ×3 (05:52→22:47)
[2022-08-30 06:17] LABS: Hematocrit 37.4 % (39.6-49.0)
[2022-08-30 06:32] LABS: Magnesium 1.7 mg/dL (1.6-2.4); Potassium 3.9 mEq/L (3.5-5.1)
[2022-08-30] MEDS: clonazePAM 0.5 MG TAB PO SCH ×3 (08:26→21:04)
[2022-08-30] MEDS: HYDROCORTISONE SUC 100 MG INJ IV SCH ×2 (10:24→21:04)
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
[2022-08-30] MEDS: methocarbamoL 500 MG TAB PO PRN (19:30)
[2022-08-30] MEDS ORDERED: MORPHINE 2 MG/ML SYR IV ONE (21:13)
[2022-08-31] MEDS: OXYCODONE HCL 5 MG TAB PO PRN ×3 (05:07→19:41)
[2022-08-31] MEDS: PANTOPRAZOLE 40MG TABLET PO SCH (05:07)
[2022-08-31 07:08] LABS: Magnesium 1.7 mg/dL (1.6-2.4); Potassium 3.3 mEq/L (3.5-5.1)
[2022-08-31] MEDS: ONDANSETRON 4 MG/2 ML VIAL IV PRN ×2 (08:55→16:33)
[2022-08-31] MEDS: methocarbamoL 500 MG TAB PO PRN (08:56)
[2022-08-31] MEDS: clonazePAM 0.5 MG TAB PO SCH ×2 (08:56→13:22)
[2022-08-31] MEDS: HYDROCORTISONE SUC 100 MG INJ IV SCH (08:57)
[2022-08-31] MEDS ORDERED: MAGNESIUM SULFATE 1 gm IVPB 1 GM/100 ML BAG IV ONE (09:00)
[2022-08-31] MEDS ORDERED: POTASSIUM CL SA 10 MEQ TAB PO ONE (09:00)
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
[2022-08-31] MEDS: predniSONE 20 MG TAB PO SCH (16:33)
--- NOTE | 2022-08-31 17:46 | RAD REPORT ---
EXAM DESCRIPTION: RAD - Hip Left 2 View - 08/31/2022 5:40 pm CLINICAL HISTORY: LEFT HIP PAIN COMPARISON: Chest Abdomen Pelvis W Cont dated 08/27/2022; Pelvis Wo Cont dated 08/01/2022 FINDINGS/IMPRESSION: No acute fracture. No malalignment. Severe age advanced left acetabular degener ative changes .
--- NOTE | 2022-08-31 21:48 | RAD REPORT ---
EXAM DESCRIPTION: RAD - Hip Right 2 View - 08/31/2022 9:43 pm CLINICAL HISTORY: Hip pain, hx avascular necrosis COMPARISON: Chest Abdomen Pelvis W Cont dated 08/27/2022 FINDINGS: No acute fracture. No malalignment. Mild right acetabular degenerative changes . IMPRESSION: No acute osseous abnormality involving the right hip. Mild right hip degenerative change s.
[2022-08-31] MEDS: TRAZODONE 150 MG TAB PO PRN (23:05)
[2022-08-31] MEDS ORDERED: clonazePAM 0.5 MG TAB PO PRN (23:18)
[2022-09-01 05:05] LABS: Bilirubin Total 0.2 mg/dL (0.2-1.0); C-Reactive Protein 26.5 mg/L (<3.00); Phosphorus 2.3 mg/dL (2.5-4.9); Protein, Total 7.6 g/dL (6.4-8.2)
[2022-09-01 05:06] LABS: Magnesium 2.1 mg/dL (1.6-2.4); Potassium 4.6 mEq/L (3.5-5.1)
[2022-09-01] MEDS: PANTOPRAZOLE 40MG TABLET PO SCH (07:15)
[2022-09-01] MEDS: OXYCODONE HCL 5 MG TAB PO PRN ×3 (07:15→18:40)
[2022-09-01] MEDS: POTASS/SODIUM PHOSPHATE 1 PKT POWD.PACK PO SCH ×3 (08:12→11:43)
[2022-09-01] MEDS: predniSONE 20 MG TAB PO SCH (08:13)
[2022-09-01] MEDS: CITALOPRAM 10 MG TABLET PO SCH (09:00)
[2022-09-01] MEDS ORDERED: ESCITALOPRAM 20 MG TAB PO SCH (09:00)
[2022-09-01] MEDS: SMZ./TMP. 800/160 MG TABLET PO SCH (11:44)
[2022-09-01] MEDS ORDERED: MORPHINE 2 MG/ML SYR IV ONE (15:30)
[2022-09-01] MEDS: ONDANSETRON 4 MG/2 ML VIAL IV PRN (15:36)
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
[2022-09-02] MEDS: OXYCODONE HCL 5 MG TAB PO PRN ×3 (01:41→18:30)
[2022-09-02] MEDS: TRAZODONE 150 MG TAB PO PRN ×2 (02:22→21:52)
[2022-09-02 04:58] LABS: Phosphorus 3.2 mg/dL (2.5-4.9); Potassium 4.1 mEq/L (3.5-5.1)
[2022-09-02] MEDS: PANTOPRAZOLE 40MG TABLET PO SCH (06:02)
[2022-09-02] MEDS ORDERED: MORPHINE 2 MG/ML SYR IV ONE (09:00)
[2022-09-02] MEDS: predniSONE 20 MG TAB PO SCH (09:28)
[2022-09-02] MEDS: CITALOPRAM 10 MG TABLET PO SCH (09:28)
[2022-09-02] MEDS: SMZ./TMP. 800/160 MG TABLET PO SCH (09:28)
[2022-09-02] MEDS: ONDANSETRON 4 MG/2 ML VIAL IV PRN ×2 (09:34→18:30)
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
[2022-09-02] MEDS ORDERED: KETOROLAC 30 MG/ML INJ IV ONE (15:00)
[2022-09-02] MEDS ORDERED: MORPHINE 2 MG/ML SYR IV PRN (21:21)
[2022-09-03] MEDS: OXYCODONE HCL 5 MG TAB PO PRN ×4 (00:13→18:34)
[2022-09-03 06:30] LABS: C-Reactive Protein 9.61 mg/L (<3.00); Magnesium 1.9 mg/dL (1.6-2.4); Phosphorus 2.8 mg/dL (2.5-4.9); Potassium 3.9 mEq/L (3.5-5.1)
[2022-09-03] MEDS: PANTOPRAZOLE 40MG TABLET PO SCH (07:02)
[2022-09-03] MEDS: predniSONE 20 MG TAB PO SCH (08:00)
[2022-09-03] MEDS: SMZ./TMP. 800/160 MG TABLET PO SCH (08:00)
[2022-09-03] MEDS: CITALOPRAM 10 MG TABLET PO SCH (08:01)
[2022-09-03] MEDS ORDERED: POTASSIUM CL SA 10 MEQ TAB PO ONE (09:00)
[2022-09-03 10:18] VITALS: O2SAT 97
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
[2022-09-04] MEDS: OXYCODONE HCL 5 MG TAB PO PRN ×2 (03:58→09:29)
[2022-09-04] MEDS: PANTOPRAZOLE 40MG TABLET PO SCH (06:36)
[2022-09-04 08:30] VITALS: BP 131/86; TEMP 96.9
[2022-09-04] MEDS: CITALOPRAM 10 MG TABLET PO SCH (08:44)
[2022-09-04] MEDS: SMZ./TMP. 800/160 MG TABLET PO SCH (08:45)
[2022-09-04] MEDS: predniSONE 20 MG TAB PO SCH (08:45)
--- NOTE | 2022-09-04 10:57 | P.DS ---
Admission Date: 08/28/22 Discharge Date: 09/04/22 Primary Care Provider: Willard Crouch Disposition: TRANSFER TO CARE HOME Discharge Condition: GOOD Reason for Admission: Dehydration, Intractable Abdominal Pain Hospital Course: DIAGNOSES: # Acute Rheumatoid Arthritis Flare-Up # Significant Debility/Deconditioning secondary to Left Hip Avascular Necrosis, Rheumatoid Arthritis, and Systemic Lupus Erythematosus # History of Cerebrovascular Accident with Residual Left-Sided Deficits (Jun 2018) # Chronic Pancreatitis # Post-Traumatic Stress Disorder # Bipolar Disorder # Hypertension # Axillary/Inguinal/Iliac Lymphadenopathy - nonspecific, but cannot exclude Malignancy # Microscopic Hematuria HOSPITAL COURSE: Mr. Sal Gomez is a 22 year old male with a past medical history significant for rheumatoid arthritis, systemic lupus erythematosus, left hip avascular necrosis, chronic pancreatitis, posttraumatic stress disorder, bipolar disorder, and hypertension who was admitted to the [facility] on 08/27/2022 for intractable pain. He was admitted to the Medicine service. Upon further evaluation, his CRP was elevated to 49.8. His CT chest/abdomen/pelvis revealed, "1. Trace stranding near the pancreatic tail appears decreased compared to prior study and may represent resolving pancreatitis, however underlying acute pancreatitis not excluded. 2. Splenomegaly. 3. Multiple enlarged inguinal/iliac chain lymph nodes again demonstrated appearing relatively unchanged. In addition, there are several enlarged axillary lymph nodes bilaterally of uncertain chronicity. Underlying malignant process such as lymphoma not excluded and clinical correlation is recommended. Follow-up imaging can be obtained as appropriate. 4. Severe degenerative changes of the left hip. Small bilateral hip joint effusions. 5. No acute findings in the chest." His right hip x-ray revealed, "no acute osseous abnormality involving the right hip. Mild right hip degenerative changes." His left hip x-ray revealed, "no acute fracture. No malalignment. Severe age advanced left acetabular degenerative changes." He was diagnosed with an acute rheumatoid arthritis flare-up and started on high-dose steroids. Over the course of his hospitalization, his symptoms improved significantly. However, he reported that, due to his significant pain, he is dependent on others for nearly all activities of daily living. Case management was consulted for assistance with finding placement. Despite attempts at multiple prison facilities, he was unable to be placed. Case management spoke with him and it was decided that Adult Protective Service be contacted to assist with placement. With the assistance of APS, he was accepted to [facility]. Incidentally, he was found to have microscopic hematuria. He was counseled that, although microscopic hematuria may be caused by several things, a underlying urologic malignancy must be excluded. I advised that he follow-up with his PCP for further evaluation and possible urologic evaluation. Additionally, he was noted to have axillary, inguinal, and iliac lymphadenopathy on his CT scan. My concern for an underlying malignancy, such as lymphoma, was highly emphasized to him. I recommended that he follow-up with his PCP postdischarge to further evaluate this. He verbalized understanding that this may represent malignancy. He agreed to make a follow-up appointment with his PCP for further evaluation. On 09/04/2022, he was seen on rounds and deemed medically stable for discharge. He was discharged with instructions to schedule follow-up appointments with his PCP, with his Enrollment Nurse, and to establish care with a Pain specialist. He is currently on a prednisone taper for an additional 35 days, and sulfamethoxazole-trimethoprim for PCP prophylaxis while the prednisone dose is 20 mg or greater. He was given the opportunity to ask questions and reported no further questions. Furthermore, all questions were answered to the best of my ability. Today, I personally spent 45 minutes on his case, of which greater than 50% of the time was spent in patient education, counseling, and coordination of care as described above. - Physical Exam General: Alert, In no apparent distress, Oriented x3 HEENT: Atraumatic, Sclerae nonicteric Respiratory: Clear to auscultation bilaterally, Normal air movement Cardiovascular: No edema, Regular rate/rhythm, No murmurs Gastrointestinal: Normal bowel sounds, Non-distended, No tenderness Musculoskeletal: No clubbing, swollen MCPs and PIPs (left hand > right) - much improved compared to prior days Integumentary: No rashes Neurological: Normal speech, Normal affect Vital Signs/Physical Exam: Temp Pulse Resp BP Pulse Ox 96.9 F 104 H 16 131/86 97 09/04/22 08:00 09/04/22 08:00 09/04/22 08:00 09/04/22 08:00 09/04/22 08:00 Laboratory Data at Discharge: WBC 7.40 thou/uL (4.3-10.9) 08/28/22 05:36 Hgb 12.2 g/dL (13.6-17.9) L 08/30/22 04:45 Hct 37.4 % (39.6-49.0) L 08/30/22 04:45 Plt Count 422 thou/uL (152-406) H 08/28/22 05:36 PT 14.3 SECONDS (9.5-12.5) H 08/26/22 22:13 INR 1.30 08/26/22 22:13 Sodium 133 mEq/L (136-145) L 09/03/22 05:31 Potassium 3.9 mEq/L (3.5-5.1) 09/03/22 05:31 BUN 25 mg/dL (7-18) H 09/03/22 05:31 Creatinine 0.57 mg/dL (0.70-1.30) L 09/03/22 05:31 Glucose 158 mg/dL (74-106) H 09/03/22 05:31 Phosphorus 2.8 mg/dL (2.5-4.9) 09/03/22 05:31 Magnesium 1.9 mg/dL (1.6-2.4) 09/03/22 05:31 Total Bilirubin 0.2 mg/dL (0.2-1.0) 09/01/22 03:48 AST 19 U/L (15-37) 09/01/22 03:48 ALT 17 U/L (16-61) 09/01/22 03:48 Alkaline Phosphatase 87 U/L (45-117) 09/01/22 03:48 Triglycerides 111 mg/dL (<150) 08/28/22 05:36 Cholesterol 117 mg/dL (<200) 08/28/22 05:36 HDL Cholesterol 31 mg/dL (40-60) L 08/28/22 05:36 Cholesterol/HDL Ratio 3.77 08/28/22 05:36 Lipase 25 U/L (13-75) 08/27/22 11:01 Home Medications: RX: Albuterol Inhaler [Ventolin Inhaler*] 2 puff IH Q6H PRN 08/28/22 RX: Hydroxychloroquine [Plaquenil*] 200 mg PO BID 08/28/22 RX: Lipase/Protease/Amylase [Creon Dr 24,000 Unit Capsule] 1 each PO DAILY 08/28/22 RX: Metformin HCl [Glucophage*] 500 mg PO DAILY WITH BREAKFAST 08/28/22 RX: Metoprolol Tartrate [Lopressor*] 25 mg PO BID 08/28/22 RX: Risperidone [Risperdal] 0.5 mg PO DAILY 08/28/22 RX: Sertraline [Zoloft*] 50 mg PO DAILY 08/28/22 RX: Trazodone [Desyrel*] 150 mg PO BEDTIME 08/28/22 RX: Citalopram [Celexa*] 5 mg PO DAILY #15 tab 09/03/22 Smz./Tmp. [Bactrim Ds 800 MG/160 MG] 1 tab PO DAILY 21 Days #21 tab 09/03/22 RX: Oxycodone HCl [Oxyir (Oxycodone HCl Imr)*] 10 mg PO Q6H PRN 3 Days #20 09/04/22 RX: predniSONE [Deltasone*] 10 mg PO DAILY #80 09/04/22 New Medications: Smz./Tmp. [Bactrim Ds 800 MG/160 MG] 1 tab PO DAILY 21 Days #21 tab RX: Citalopram [Celexa*] 5 mg PO DAILY #15 tab Physician Discharge Instructions: -Follow-up with PCP in 1 to 2 weeks -Follow-up with Cardiology in 1 to 2 weeks -Follow-up with Rheumatology in 1 to 2 weeks -Please consider establishing care with a Pain Medicine specialist (Dr. Navdeep Gipson) -Please call Dr. Caro at [phone] if any questions regarding hospital stay -Please call nursing station at [phone] if any nursing or medication questions -Return to the emergency room if symptoms worsen Diet: Regular Activity: Fall precautions Time spent managing pt's care (in minutes): 45
[2022-09-05] MEDS ORDERED: predniSONE 10 MG TAB PO SCH (09:00)
[2022-09-05] MEDS ORDERED: predniSONE 20 MG TAB PO SCH (09:00)
== END 2022-09-04 13:37 | DRG 545 ==
LOC: ER 21:20 → ERHOLD 08-27 05:29 → 4TH 08-27 08:53 → OBSVTOIN 08-28 13:57
PROVIDERS: ADMIT Hospitalist; ATTEND Internal Medicine
DX: M06.851 Other specified rheumatoid arthritis, right hip (principal); K85.90 Acute pancreatitis without necrosis or infection, unspecified; I69.354 Hemiplegia and hemiparesis following cerebral infarction affecting left non-dominant side; M87.88 Other osteonecrosis, other site; K86.1 Other chronic pancreatitis; L40.9 Psoriasis, unspecified; E86.0 Dehydration; I10 Essential (primary) hypertension; F43.10 Post-traumatic stress disorder, unspecified; M32.9 Systemic lupus erythematosus, unspecified; M06.852 Other specified rheumatoid arthritis, left hip; M25.452 Effusion, left hip; M25.451 Effusion, right hip; F31.9 Bipolar disorder, unspecified; R16.1 Splenomegaly, not elsewhere classified; R59.1 Generalized enlarged lymph nodes; R31.29 Other microscopic hematuria; Z60.2 Problems related to living alone; Z99.3 Dependence on wheelchair; Z90.49 Acquired absence of other specified parts of digestive tract; Z20.822 Contact with and (suspected) exposure to COVID-19
CPT/HCPCS: 0240U; 36415; 71045; 71260; 74177; 80048; 80053; 80061; 80076; 81001; 83690; 83735; 83880; 84100; 84132; 84443; 84484; 85014; 85018; 85025; 85610; 86038; 86140; 86200; 86225; 86430; 87040; 93005; 96361; 96365; 96366; 96375; 97161; 97165; 97530; 99285; G0378; J0696; J1720; J2270; J2405; J2765; J3475; J7030; J7050; J7512; Q9967

== ENCOUNTER 2022-12-13 00:35 | Emergency (ER) | payer OTHER ==
[2022-12-13] MEDS ORDERED: MORPHINE 4 MG/ML SYR ONE ×2 (01:13→02:11)
[2022-12-13] MEDS ORDERED: NA CHLORIDE 0.9% 1,000 ML ONE (01:14)
[2022-12-13] MEDS ORDERED: ONDANSETRON 4 MG/2 ML VIAL ONE (01:14)
--- OUTSIDE RECORDS SUMMARY | 2022-12-13 01:21 | XMS REPORT | Continuity of Care Document ---
:2000 Author Organization [facility] t Address [address] [facility] [address] [place] [address] Care Team Providers Name Role Phone Pcp, Patient Does Not Have A Primary Care Physician [phone] WILLARD CROUCH Attending Clinician Unavailable WILLARD CROUCH EMILE Attending Clinician Unavailable [id number] Attending Clinician Unavailable Bro MANUEL, Stefany Attending Clinician Doctor Unassigned, [place] Attending Clinician Unavailable _[facility]_Malik_J Attending Clinician Unavailable KAYLA THOMPSON Attending Clinician Unavailable Мария MANUEL, Karthik Attending Clinician [phone] Mervin MANUEL, Vernell Hunt Attending Clinician [phone] Melissa Leung MD Attending Clinician Kayla Thompson MD Attending Clinician Dyllan Romero MD Attending Clinician JUAN JOSÉ GARCIA Attending Clinician Unavailable Estrada Sinclair MD Attending Clinician Jose MANUEL, Juan José Diaz Attending Clinician Cecil MANUEL, Corrie Attending Clinician ANETA GUTIERREZ Attending Clinician Unavailable [...] Clinician Hallie MANUEL, Marck Johnson Attending Clinician [phone] Lissette MANUEL, Amado Attending Clinician Shawn Lamar Attending Clinician Millie Gomez MD Attending Clinician BETHANY DURHAM Attending Clinician Unavailable Laith MANUEL, Khushi Goode Attending Clinician [phone] Bethany Durham MD Attending Clinician Suhail Man MD Attending Clinician [phone] DOUG JOSHI Attending Clinician Unavailable SUHAIL MAN Attending Clinician Unavailable Edouard MANUEL, Kimmy Meza Attending Clinician [phone] Rebecca MANUEL, Kathy Echols Attending Clinician [phone] Cherri MANUEL, Aravind Ordaz Attending Clinician iVcki MANUEL, Ary Hargrove Attending Clinician [phone] Victor M MANUEL, Mana Mireles Attending Clinician Maura MANUEL, Rose Hardy Attending Clinician Karen MANUEL, Oren Attending Clinician Alisa MANUEL, Rebecca Smith Attending Clinician BEAR OSPINA Attending Clinician Unavailable TI, WILLARD, WILLARD Admitting Clinician Unavailable [id number] Admitting Clinician Unavailable _[facility]_Todd_J Admitting Clinician Unavailable VERNELL GONZALEZ Admitting Clinician Unavailable CORRIE JACOB Admitting Clinician Unavailable Cecil MANUEL, Corrie Admitting Clinician ANETA GUTIERREZ Admitting Clinician Unavailable SILVIO RASCON Admitting Clinician Unavailable Ti, Willard Admitting Clinician Unavailable GRICELDA ARTEAGA Admitting Clinician Unavailable NILSA RIOS Admitting Clinician Unavailable BETHANY DURHAM Admitting Clinician Unavailable KNOW, DOES_NOT Admitting Clinician Unavailable CY CORREIA Admitting Clinician Unavailable Payers Payer Name Policy Type Policy Number Effective Date Expiration Date S ource [facility] [id number] [facility] [id number] [facility] [id number] CIG - [facility] [id number] 2010 [employer] 00:00:00 (PPO) [facility] - [id number] [employer]MED[place] REPLAC[place] - HMO) MEDICAID [facility] [id number] 2021 00:00:00 Problems Condition Condition Condition Status Onset Resolution Last Treating Co mments Source Name Details Category Date Date Treatment Clinician Date Dependence Dependence Problem Active [facility] on wheel on Wheel 09-11 Medica l chair Chair 00:00: 00 Need for Need for Problem Active [facility] personal Personal 4 Medica l care Care 00:00: assistance Assistance 00 Bipolar Bipolar Problem Active [facility] disorder Disorder 4-19 Medica l 00:00: 00 Neglect of Neglect of Problem Active [facility] personal Personal 4-19 Medica l hygiene Hygiene 00:00: 00 Nicotine Nicotine Problem Active [facility] dependence Dependence 4-19 Me dical 00:00: 00 Prediabete Prediabete Problem Active [facility] s s 4-19 Medical 00:00: 00 Candidiasi Candidiasi Problem Active [facility] s of mouth s of Mouth 4-19 Me dical 00:00: 00 Morbid Morbid Problem Active [facility] obesity Obesity 4-18 Medical 00:00: 00 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 00:00: disorder Disorder 00 Hypercoagu Hypercoagu Problem Active [facility] lability lability 4-18 Medica l state State 00:00: 00 Opioid Opioid Problem Active [facility] dependence Dependence 4-18 Me dical 00:00: 00 Posttrauma Posttrauma Problem Active [facility] tic stress tic Stress 4-18 Me dical disorder Disorder 00:00: 00 Chronic Chronic Problem Active [facility] pain Pain 4-18 Medical 00:00: 00 Hypertensi Hypertensi Problem Active [facility] ve heart ve Heart 4-18 Medica l disease Disease 00:00: 00 Hemiparesi Hemiparesi Problem Active [facility] s as late s as Late 4-18 Medi doreen effect of Effect of 00:00: cerebrovas Cerebrovas 00 cular cular accident Accident Asthma Asthma Problem Active [facility] 4-18 Medical 00:00: 00 Chronic Chronic Problem Active [facility] pancreatit Pancreatit 4-18 Me dical is is 00:00: 00 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 00:00: margot margot 00 Rheumatoid Rheumatoid Problem Active [facility] arthritis Arthritis 4-18 Medi doreen 00:00: 00 Inguinal Inguinal Problem Active [facility] lymphadeno Lymphadeno 4-18 Me dical lnius linus 00:00: 00 Axillary Axillary Problem Active [facility] lymphadeno Lymphadeno 4-18 Me dical linus linus 00:00: 00 History of History of Problem Active [facility] endocardit Endocardit 4-18 Me dical is is 00:00: 00 Electronic Electronic Problem Active [facility] cigarette Cigarette -18 Medi doreen user User 00:00: 00 Marijuana Marijuana Problem Active [facility] via user User -18 Medical 00:00: 00 Ingrowing Ingrowing Problem Active [facility] via nail of Nail of 18 Medical toe of Toe of 00:00: left foot Left Foot 00 Long-term Long-term Problem Active [facility] via current Current 18 Medical use of Use of 00:00: hydroxychl Hydroxychl 00 oroquine oroquine Body mass Body Mass Problem Active [facility] via index 30+ Index 30+ -18 Medi doreen - obesity - Obesity 00:00: 00 Hx of Hx of Disease Recurre [facility] bacterial bacterial nce 1-07 [facility] endocardit endocardit 00:00: Me dical is is 00 [place] Abdominal Abdominal Disease Active 2021-05 Uni vers pain pain 0-28 ity of 00:00: [address] Branch Obesity Obesity Disease Active 2021-05 Univers (BMI (BMI 0-28 ity of 30-39.9) 30-39.9) 00:00: [address] Branch Abscess Abscess Disease Active 2021-[address] [facility] between between 0-20 [facility] intestinal intestinal 00:00: Me dical loops loops 00 [place] Abscess Abscess Disease Active [facility] 9-08 [...] 4-13 [facility] (>16k) (>16k) 00:00: Medical 00 [place] Pancytopen Pancytopen Disease Active [facility] ia ia 4-13 [facility] 00:00: Medical 00 [place] Pre-diabet Pre-diabet Disease Active [facility] es es 4-09 [facility] 00:00: Medical 00 [place] Hx of TIA Hx of TIA Disease Active [facility] (transient (transient 08-26 Jessica kes ischemic ischemic 00:00: Medica l attack) attack) 00 Center and stroke and stroke Rheumatoid Rheumatoid Disease Recurre [facility] arthritis arthritis nce 4-09 [facility] involving involving 00:00: Medi doreen multiple multiple 00 Center sites sites Acute Acute Disease Active [facility] pancreatit pancreatit -08 Jessica kes is is 00:00: Medical 00 [place] Hyperbilir Hyperbilir Disease Active [facility] ubinemia ubinemia 408 [facility] 00:00: Medical 00 [place] Elevated Elevated Disease Active [facility] LFTs LFTs 08 [facility] 00:00: Medical 00 [place] SLE SLE Disease Recurre [facility] (systemic (systemic nce 4-08 [facility] 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:00: Medical erythemato erythemato 00 Ce nter margot margot related related syndrome) syndrome) Bipolar Bipolar Disease Recurre [facility] disorder disorder nce 4-08 [facility] 00:00: Medical 00 [place] Essential Essential Disease Active [facility] hypertensi hypertensi 4-08 Jessica kes on on 00:00: Medical 00 [place] Allergies, Adverse Reactions, Alerts Allergy Allergy Status Severity Reaction(s) Onset Inactive Treating Comm ents Source Name Type Date Date Clinician ADHESIVE Allergy Active Rash 2021-05 [facility] to 0-28 Medical substanc 00:00: e 00 ADHESIVE Drug Active Rash 2021-05 Univers Class 0-28 ity of 00:00: [place] 00 Medical Branch Adhesive Propensi Active Rash 2021-05 Univer s ty to 0-28 ity of adverse 00:00: [place] reaction 00 Medical s Branch Adhesive Propensi Active 2021-[address] [facility] Tape ty to 0-21 [facility] adverse 00:00: Medical reaction 00 [place] s ADHESIVE Allergy Active 2021-[address] [facility] TAPE 0-21 [facility] 00:00: Medical Center NO KNOWN Drug Active Univers ALLERGIE Class ity of S [facility] NO KNOWN Allergy Active [facility] ALLERGIE [facility] Family History Family Member Diagnosis Comments Start Date Stop Date Source Natural father Drug abuse [facility] Natural mother Drug abuse [facility] Social History Social Habit Start Date Stop Date Quantity Comments Source History [facility] Gender identity Universit y of [facility] Sexual orientation Univer sity of [facility] History of tobacco Passive smoker Un iversity of use [facility] History of Social 2022-03-19 2022-03-19 Univers ity of function 00:00:00 00:00:00 [facility] Tobacco use and 2022-03-16 2022-03-16 User of Universit y of exposure 00:00:00 00:00:00 smokeless [facility] Exposure to 2022-03-04 2022-03-14 Not sure [facility] SARS-CoV-2 (event) 00:00:00 14:36:00 [facility] Alcohol intake 2022-03-08 2022-03-08 Ex-drinker [facility] es 00:00:00 00:00:00 (finding) Medical Center History [facility] 2021-12-08 2021-12-[address] [facility] Transport Med 00:00:00 00:00:[address] History [facility] 2021-12-08 2021-12-[address] [facility] Housing Unable to 00:00:00 00:00:00 Medical Center Pay History [facility] 2021-12-08 2021-12-[address] [facility] Housing Homeless 00:00:00 00:00:00 Medical Center Last Year History [facility] 2021-08-26 2021-08-[address] [facility] Housing Places 00:00:00 00:00:00 Medical Ce nter Lived Sex Assigned At [birth year] Universit y of 00:00:00 00:00:00 [facility] Smoking Status Start Date Stop Date Source Heavy Tobacco Smoker [facility] Medi doreen Tobacco smoking University [facility] [place] consumption unknown Medical Bran ch Occasional tobacco smoker 2022-03-16 00:00:00 Un [facility]ity [facility] [place] [facility] Ex-smoker 2021-12-08 00:00:00 2021-12-[address] [facility] 00:00:00 Center Medications Ordered Filled Start Stop Current Ordering Indication Dosage Frequency Signature Comments Components Source Medication Medication Date Date Medication? Clinician (SIG) Name Name atovaquone 2022-0 Yes 750mg QD Take [address] (MEPRON) 1-18 (750 mg [facility] 750 mg/5 mL 00:00: total) by [employer] mouth Center daily While on high dose steroids. atovaquone 2022-0 Yes 750mg QD Take [address] [address] (MEPRON) 1-18 (750 mg [facility] 750 mg/5 mL 00:00: total) by [employer] mouth Center daily While on high dose steroids. atovaquone 2022-0 Yes 750mg QD Take [address] (MEPRON) 1-18 (750 mg [facility] 750 mg/5 mL 00:00: total) by [employer] mouth Center daily While on high dose steroids. atovaquone 2022-0 Yes 750mg QD Take [address] (MEPRON) 1-18 (750 mg [facility] 750 mg/5 mL 00:00: total) by [employer] mouth Center daily While on high dose steroids. atovaquone 2022-0 Yes 750mg QD Take [address] (MEPRON) 1-18 (750 mg [facility] 750 mg/5 mL 00:00: total) by [email or web address] mouth Center daily While on high dose steroids. atovaquone 2022-0 Yes 750mg QD Take [address] (MEPRON) 1-18 (750 mg [facility] 750 mg/5 mL 00:00: total) by [employer] mouth Center daily While on high dose steroids. atovaquone 2022-0 Yes 750mg QD Take [address] (MEPRON) 1-18 (750 mg [facility] 750 mg/5 mL 00:00: total) by [email or web address] mouth Center daily While on high dose steroids. traZODone 0 Yes 150mg QD Take [address] (DESYREL) 1-17 mg by [facility] 150 MG 15:29: mouth Medical tablet 24 nightly. Center metoprolol 0 Yes 25mg Q.5D Take [address] tartrate 1-17 by mouth 2 [facility] (LOPRESSOR) 15:29: (two) Medic al 25 MG 24 times Center tablet daily. metFORMIN 3-0 Yes 500mg Take [address] (GLUMETZA) 1-17 mg by [facility] 500 MG 15:29: mouth Medical (MOD) 24 hr 24 daily with Ce nter tablet breakfast. sertraline 2022-0 Yes 50mg QD Take [address] (ZOLOFT) 50 1-17 by mouth Luke [facility] MG tablet 15:29: daily. Medica l 24 Center risperiDONE 2022-0 Yes .5mg QD Take 0.5 [...] mouth Medical tablet 24 nightly. Center metoprolol 2022-0 Yes 25mg Q.5D Take [address] tartrate 1-17 by mouth 2 [facility] (LOPRESSOR) 15:29: (two) Medic al 25 MG 24 times Center tablet daily. metFORMIN 2022-0 Yes 500mg Take [address] (GLUMETZA) 1-17 mg by [facility] 500 MG 15:29: mouth Medical (MOD) 24 hr 24 daily with Ce nter tablet breakfast. sertraline 3-0 Yes 50mg QD Take [address] (ZOLOFT) 50 1-17 by mouth Luke [facility] MG tablet 15:29: daily. Medica l 24 Center risperiDONE 2022-0 Yes .5mg QD Take 0.5 [...] mouth Medical tablet 24 nightly. Center metoprolol 2022-0 Yes 25mg Q.5D Take [address] tartrate 1-17 by mouth 2 [facility] (LOPRESSOR) 15:29: (two) Medic al 25 MG 24 times Center tablet daily. metFORMIN 2022-0 Yes 500mg Take [address] (GLUMETZA) 1-17 mg by [facility] 500 MG 15:29: mouth Medical (MOD) 24 hr 24 daily with Ce nter tablet breakfast. sertraline 2022-0 Yes 50mg QD Take [address] (ZOLOFT) 50 1-17 by mouth Luke s MG tablet 15:29: daily. Medica l 24 Center risperiDONE 2022-0 Yes .5mg QD Take 0.5 [...] mouth Medical tablet 24 nightly. Center metoprolol 2022-0 Yes 25mg Q.5D Take [address] tartrate 1-17 by mouth 2 [facility] (LOPRESSOR) 15:29: (two) Medic al 25 MG 24 times Center tablet daily. metFORMIN 2023-0 Yes 500mg Take [address] (GLUMETZA) 1-17 mg by [facility] 500 MG 15:29: mouth Medical (MOD) 24 hr 24 daily with Ce nter tablet breakfast. sertraline 2023-0 Yes 50mg QD Take [address] (ZOLOFT) 50 1-17 by mouth Luke s MG tablet 15:29: daily. Medica l 24 Center risperiDONE 3-0 Yes .5mg QD Take 0.[address] (RisperDAL) 1-17 mg by [facility] 0.5 MG 15:29: mouth Medical tablet 24 daily. Center hydrOXYchlo 3-0 Yes 200mg Q.5D Take [address] roQUINE 1-17 mg by [facility] (PLAQUENIL) 15:29: mouth 2 Med ical 200 mg 24 (two) Center tablet times daily. pantoprazol 3-0 Yes 40mg QD Take [address] [facility] e 1-17 by mouth [facility] (PROTONIX) 15:29: daily. Medic al 40 MG 24 Center tablet traZODone 2022-0 Yes 150mg QD Take [address] (DESYREL) 1-17 mg by [facility] 150 MG 15:29: mouth Medical tablet 24 nightly. Center metoprolol 2022-0 Yes 25mg Q.5D Take 25 mg C [...] mouth Medical tablet 24 nightly. Center metoprolol 2023-0 Yes 25mg Q.5D Take [address] tartrate 1-17 by mouth 2 [facility] (LOPRESSOR) 15:29: (two) Medic al 25 MG 24 times Center tablet daily. metFORMIN 2023-0 Yes 500mg Take [address] (GLUMETZA) 1-17 mg by [facility] 500 MG 15:29: mouth Medical (MOD) 24 hr 24 daily with Ce nter tablet breakfast. sertraline 3-0 Yes 50mg QD Take [address] (ZOLOFT) 50 1-17 by mouth Luke s MG tablet 15:29: daily. Medica l 24 Center risperiDONE 3-0 Yes .5mg QD Take 0.[address] (RisperDAL) 1-17 mg by [facility] 0.5 MG 15:29: mouth Medical tablet 24 daily. Center hydrOXYchlo 3-0 Yes 200mg Q.5D Take [address] roQUINE 1-17 mg by [facility] (PLAQUENIL) 15:29: mouth 2 Med ical 200 mg 24 (two) Center tablet times daily. pantoprazol 3-0 Yes 40mg QD Take [address] [facility] e 1-17 by mouth [facility] (PROTONIX) 15:29: daily. Medic al 40 MG 24 Center tablet traZODone 3-0 Yes 150mg QD Take [address] (DESYREL) 1-17 mg by [facility] 150 MG 15:29: mouth Medical tablet 24 nightly. Center metoprolol 2023-0 Yes 25mg Q.5D Take [address] tartrate 1-17 by mouth 2 [facility] (LOPRESSOR) 15:29: (two) Medic al 25 MG 24 times Center tablet daily. metFORMIN 2023-0 Yes 500mg Take [address] (GLUMETZA) 1-17 mg by [facility] 500 MG 15:29: mouth Medical (MOD) 24 hr 24 daily with Ce nter tablet breakfast. sertraline Yes 50mg QD Take [address] (ZOLOFT) 50 1-17 by mouth Luke s MG tablet 15:29: daily. Medica l 24 [place] risperiDONE Yes .5mg QD Take 0.[address] (RisperDAL) 1-17 mg by [facility] 0.5 MG 15:29: mouth Medical tablet 24 daily. [place] hydrOXYchlo Yes 200mg Q.5D Take [address] roQUINE 1-17 mg by [facility] (PLAQUENIL) 15:29: mouth 2 Med ical 200 mg 24 (two) Center tablet times daily. pantoprazol Yes 40mg QD Take [address] [facility] e 1-17 by mouth [facility] (PROTONIX) 15:29: daily. Medic al 40 MG 24 Center tablet predniSONE 2022- No 50mg QD Take [address] [facility] (DELTASONE) -06-05 by mouth Jody es 5 MG tablet 13:26: 00:00 daily . Me dical 19 :00 [place] predniSONE 0 2022- No 50mg QD Take [address] [facility] (DELTASONE) -06-05 by mouth Jody es 5 MG tablet 13:26: 00:00 daily . Me dical 19 :00 [place] predniSONE 2022- No 50mg QD Take [address] [facility] (DELTASONE) -06-05 by mouth Jody es 5 MG tablet 13:26: 00:00 daily . Me dical 19 :00 [place] predniSONE 0 2022- No 50mg QD Take [address] [facility] (DELTASONE) -06-05 by mouth Jody es 5 MG tablet 13:26: 00:00 daily . Me dical 19 :00 [place] predniSONE 0 2022- No 50mg QD Take [address] [facility] (DELTASONE) -06-05 by mouth Jody es 5 MG tablet 13:26: 00:00 daily . Me dical 19 :00 [place] predniSONE 2022- No 50mg QD Take [address] (DELTASONE) -06-05 by mouth Jody es 5 MG tablet 13:26: 00:00 daily . Me dical 19 :00 [place] predniSONE 2022- No 50mg QD Take [address] (DELTASONE) 1-17 -17 by mouth Jody es 5 MG tablet 13:26: 00:00 daily . Me dical 19 :00 Center predniSONE 2022-0 Yes Take 35mg CH I [...] taper Center by 5mg every week. predniSONE 0 Yes Take 35mg [facility] (DELTASONE) [...] Center by 5mg every week. oxyCODONE 2022-0 2022- No 15mg Take 1 [facility] (ROXICODONE -06-15 tablet (15 L ukes ) 15 MG 00:00: 23:59 mg total) Medi doreen immediate 00 :00 by mouth Center release every 4 tablet (four) hours as needed for up to 10 days. Max Daily Amount: 90 mg oxyCODONE 2022-0 2022- No 15mg Take 1 [facility] (ROXICODONE 1-17 06-15 tablet (15 L ukes ) 15 MG 00:00: 23:59 mg total) Medi doreen immediate 00 :00 by mouth Center release every 4 tablet (four) hours as needed for up to 10 days. Max Daily Amount: 90 mg oxyCODONE 2023-0 2023- No 15mg Take 1 [facility] (ROXICODONE 1-17 27 tablet (15 L ukes ) 15 MG 00:00: 23:59 mg total) Medi doreen immediate 00 :00 by mouth Center release every 4 tablet (four) hours as needed for up to 10 days. Max Daily Amount: 90 mg oxyCODONE 2023-0 2023- No 15mg Take 1 [facility] (ROXICODONE 1-17 27 tablet (15 L ukes ) 15 MG 00:00: 23:59 mg total) Medi doreen immediate 00 :00 by mouth Center release every 4 tablet (four) hours as needed for up to 10 days. Max Daily Amount: 90 mg oxyCODONE 2023-0 2023- No 15mg Take 1 [facility] (ROXICODONE 1-17 27 tablet (15 L ukes ) 15 MG 00:00: 23:59 mg total) Medi doreen immediate 00 :00 by mouth Center release every 4 tablet (four) hours as needed for up to 10 days. Max Daily Amount: 90 mg oxyCODONE 2023-0 2023- No 15mg Take 1 [facility] (ROXICODONE 1-17 27 tablet (15 L ukes ) 15 MG 00:00: 23:59 mg total) Medi doreen immediate 00 :00 by mouth Center release every 4 tablet (four) hours as needed for up to 10 days. Max Daily Amount: 90 mg oxyCODONE 2023-0 2023- No 15mg Take 1 [facility] (ROXICODONE 1-17 27 tablet (15 L ukes ) 15 MG 00:00: 23:59 mg total) Medi doreen immediate 00 :00 by mouth Center release every 4 tablet (four) hours as needed for up to 10 days. Max Daily Amount: 90 mg enoxaparin 2023-0 2023- No 40mg QD Inject [address] (LOVENOX) 1-07 01-07 mg [facility] 40 mg/0.4 02:51: 00:00 subcutaneo M edical mL Syrg 04 :00 ly Center daily. enoxaparin 2022- No 40mg QD Inject [address] (LOVENOX) 05-26 01-07 mg [facility] 40 mg/0.4 02:51: 00:00 subcutaneo M edical mL Syrg 04 :00 usly Center daily. enoxaparin 2022- No 40mg QD Inject [address] (LOVENOX) 05-26-07 mg [facility] 40 mg/0.4 02:51: 00:00 subcutaneo M edical mL Syrg 04 :00 usly Center daily. enoxaparin 2022- No 40mg QD Inject [address] (LOVENOX) 05-26-07 mg [facility] 40 mg/0.4 02:51: 00:00 subcutaneo M edical mL Syrg 04 :00 usly Center daily. enoxaparin 2022- No 40mg QD Inject [address] (LOVENOX) 05-26-07 mg [facility] 40 mg/0.4 02:51: 00:00 subcutaneo M edical mL Syrg 04 :00 usly Center daily. enoxaparin 2022- No 40mg QD Inject [address] (LOVENOX) 05-26-07 mg [facility] 40 mg/0.4 02:51: 00:00 subcutaneo M edical mL Syrg 04 :00 usly Center daily. enoxaparin 2022- No 40mg QD Inject [address] (LOVENOX) 05-26-07 [facility] 40 mg/0.4 02:51: 00:00 subcutaneo M edical mL Syrg 04 :00 usly Center daily. No known 2021-05 No No known Unive rs medications 0-31 medication it y of 14:29: s [place] [id number] Medical Branch ondansetron 2021-05 Yes 8mg 8 [...] s mL 00 First dose Medical on [facility] 03/18/22 at 1045, Until Discontinu ed, Routine magnesium 2021-05- No 4g 4 g, IV Univ ers sulfate in 0-30 10-30 Piggyback, it y of water 4 15:00: 14:15 ONCE, 1 [place] gram/50 mL 00 :00 dose, On Medic al (8 %) IV [facility] Piggyback 4 03/18/22 g at 1000, Routine ondansetron 2021-05- No 8mg 8 mg, Univ ers (ZOFRAN-ODT 0-30 10-30 Oral, ity of ) 00:36: 15:40 Q6HPRN, [place] disintegrat 34 :15 Starting Medi doreen ing tablet on [facility] 8 mg 03/17/22 at 1936, Until [place] 03/18/22 at 1040, Routine, Nausea and Vomiting (N/V) lisinopriL 2021-05- No [id number] 5mg Take 1 Univers 5 mg tablet 0-30 11-30 tablet by it y of 00:00: 05:59 mouth in [place] 00 :00 the Medical morning Branch for 30 days. pantoprazol 2021-05- No [id number] 40mg Take 1 Univers e 40 mg EC 0-30 11-30 tablet by ity of tablet 00:00: 05:59 mouth in [place] 00 :00 the Medical morning Branch for 30 days. risperiDONE 2021-05- No [id number] .5mg Take 1 Univers 0.5 mg 0-30 11-30 tablet by ity of tablet 00:00: 05:59 mouth [place] 00 :00 every Medical morning Branch for 30 days. SERTraline 2021-05- No [id number] 50mg Take 1 Univers 50 mg 0-30 11-30 tablet by ity of tablet 00:00: 05:59 mouth in [place] 00 :00 the Medical morning Branch for 30 days. lisinopriL 2021-05- No [id number] 5mg Take 1 Univers 5 mg tablet 0-30 11-30 tablet by it y of 00:00: 05:59 mouth in [place] 00 :00 the Medical morning Branch for 30 days. pantoprazol 2021-05- No [id number] 40mg Take 1 Univers e 40 mg EC 0-30 -30 tablet by ity of tablet 00:00: 05:59 mouth in [place] 00 :00 the Medical morning Branch for 30 days. risperiDONE 2021-05- No [id number] .5mg Take 1 Univers 0.5 mg 0-30 11-30 tablet by ity of tablet 00:00: 05:59 mouth [place] 00 :00 every Medical morning Branch for 30 days. SERTraline 2021-05- No [id number] 50mg Take 1 Univers 50 mg 0-30 11-30 tablet by ity of tablet 00:00: 05:59 mouth in [place] 00 :00 the Medical morning Branch for 30 days. lipase-prot 2021-05- No [id number] 2{capsu Take 2 Univers ease-amylas 0-30 11-14 le} capsules ity of e 00:00: 05:59 by mouth [place] 12,000-38,0 00 :00 in the Medica l 00 -60,000 morning Branch unit and 2 capsule capsules at noon and 2 capsules in the evening. Take with meals. Do all this for 14 days. docusate 2021-05- No [id number] 100mg Take 1 Univers 100 mg 0-30 11-10 capsule by ity of capsule 00:00: 05:59 mouth in [place] 00 :00 the Medical morning Branch for 10 days. gadobenate 2021-05- No [id number] .2mL/kg 19.96 mL Univers dimeglumine 03-17 (0.2 mL/kg i ty of (MULTIHANCE 16:00: 16:00 ?99.8 kg), [place] -20 mL) 00 :00 Intravenou Medica l injection s, ONCE, 1 Bran ch 19.96 mL dose, On [facility] 03/17/22 at 1100, Routine LORazepam 2021-05- No 2mg 2 mg, Univer s (ATIVAN) 003-17 Oral, ity of tablet 2 mg 16:00: 15:12 ONCE[place] 1 [place] dose, On Medical [facility] Branch 03/17/22 at 1100, Routine HYDROcodone 2021-05 Yes 1{tbl} 1 tablet, Univers -acetaminop 0-29 Oral, ity of hen (NORCO 14:12: Q6HPRN, [place] 5) 5-325 mg 34 Starting Medi doreen tablet 1 on Sat Branch tablet 03/17/22 at 0912, Until Discontinu ed, Routine, Pain (scale 4-6) lisinopriL 2021-05 Yes 5mg 5 mg, Univer s (PRINIVIL,Z 0-29 Oral, ity of ESTRIL) 14:00: DAILY, [place] tablet 5 mg 00 First dose Me dical on Sat Branch 03/17/22 at 0900, Until Discontinu ed, Routine pantoprazol 2021-05 Yes 40mg 40 mg, Univ ers e 0-29 Oral, ity of (PROTONIX) 14:00: DAILY, [place] EC tablet 00 First dose Medi doreen 40 mg on Sat Branch 03/17/22 at 0900, Until Discontinu ed, Routine KCL 2021-05- No 40meq 40 mEq, Univers (KLOR-CON 0- 10- Oral, ity of M20) tablet 13:00: 13:03 [...] Until Discontinu ed, Routine traZODone 2021-05- No [id number] 50mg Take 1 [facility] 50 mg 0-29 11-29 tablet by ity of tablet 00:00: 05:59 mouth at [place] 00 :00 bedtime Medical for 30 Branch days. ondansetron 2021-05- No [id number] 4mg Take 1 [facility] 4 mg tablet 04-17 tablet by it y of 00:00: 05:59 mouth [place] 00 :00 every 8 Medical (eight) Branch hours as needed for Nausea and Vomiting (N/V) for up to 30 days. traZODone 2021-05- No [id number] 50mg Take 1 [facility] 50 mg 0-17 04- tablet by ity of tablet 00:00: 05:59 mouth at [place] 00 :00 bedtime Medical for 30 Branch days. ondansetron 2021-05- No [id number] 4mg Take 1 [facility] 4 mg tablet 04-17 tablet by it y of 00:00: 05:59 mouth [place] 00 :00 every 8 Medical (eight) Branch hours as needed for Nausea and Vomiting (N/V) for up to 30 days. HYDROcodone 2021-05- No [id number] 1{tbl} Take 1 U nivers -acetaminop 0- 11-06 tablet by it y of hen (NORCO) 00:00: 04:59 mouth [place] 10-325 mg 00 :00 every 6 Medical tablet (six) Branch hours as needed for Pain (scale 7-10) for up to 7 days. Indication s: acute pain HYDROcodone 2021-05- No 4647 1{tbl} Take 1 U nivers -acetaminop 0-17 04-06 tablet by it y of hen 5-325 00:00: 04:59 mouth [place] mg tablet 00 :00 every 6 Medical (six) Branch hours as needed for Pain (scale 4-6) for up to 7 days. Indication s: acute pain enoxaparin 2021-05 Yes 40mg 40 mg, Unive rs (LOVENOX) 0-28 Subcutaneo ity of injection 22:00: [place], DAILY, [place] 40 mg 00 First dose Medical on Sat03/16/22 at 1700, Until Discontinu ed, Routine sennosides 2021-05 Yes 8.6mg 8.6 mg, Uni vers (SENOKOT) 0-28 Oral, ity of tablet 8.6 14:00: DAILY, [place] mg 00 First dose Medical on Sat03/16/22 at 0900, Until Discontinu ed, Routine lidocaine 2021-05 Yes 1{patch 1 Patch, U nivers (LIDODERM) 0 } Topical, ity o f 5 % (700 14:00: Administer [place] as mg/patch) 00 over 12 Medical patch 1 Hours, Branch Patch DAILY, First dose (after last reorder) on Sat03/16/22 at 0900, Until Discontinu ed, Routine risperiDONE 2021-05 Yes .5mg 0.5 mg, Uni vers (RISPERDAL) 0 Oral, QAM, it y of tablet 0.5 14:00: First dose [place] mg 00 on Sat [facility] 03/16/22 Branch at 0900, Until Discontinu ed, Routine SERTraline 2021-05 Yes 50mg 50 mg, Unive rs (ZOLOFT) 0 Oral, ity of tablet 50 14:00: DAILY, [place] mg 00 First dose Medical on Sat03/16/22 at 0900, Until Discontinu ed, Routine docusate 2021-05 Yes 100mg 100 mg, Unive rs (COLACE) 0 Oral, ity of capsule 100 14:00: DAILY, [place] mg 00 First dose Medical on Sat03/16/22 at 0900, Until Discontinu ed, Routine polyethylen 2021-05 Yes 17g 17 g, Unive rs e glycol 0 Oral, BID, ity o f 3350 powder 13:00: First dose [place] 17 g 00 on Sat [facility] 03/16/22 Branch at 0800, Until Discontinu ed, Routine lipase-prot 2021-05 Yes 2{capsu 2 capsule, Univers ease-amylas 0 le} Oral, TID ity of e (CREON) 13:00: MEALS, [place] 12,000-38,0 00 First dose Me dical 00 -60,000 (after Branch unit last capsule 2 modificati capsule on) on Sat03/16/22 at 0800, Until Discontinu ed, Routine pantoprazol 2021-05- No 40mg 40 mg, Uni vers e 0-03-16 Slow IV ity of (PROTONIX) 13:00: 19:44 Push, [place] injection 00 :37 Q12H, Medical 40 mg First dose Branch on Sat03/16/22 at 0800, Until Discontinu ed morpHINE (2 2021-05- No 2mg 2 mg, Slow Univers mg/mL) 0- 10-30 IV Push, ity of injection 2 09:31: 02:20 Q6HPRN, [place] mg 19 :53 Starting Medical on Sat Branch 03/16/22 at 0431, Until 03/17/22 at 2120, Routine, Pain (scale 7-10) lidocaine 2021-05- No 1{patch 1 Patch, Univers (LIDODERM) 0-03-16 } Topical, ity of 5 % (700 08:30: 20:58 Administer [place] mg/patch) 00 :00 over 12 Medical patch 1 Hours, Branch Patch ONCE, 1 dose, On Sat03/16/22 at 0330, Routine carvediloL 2021-05 Yes 12.5mg 12.5 mg, U nivers (COREG) 0-28 Oral, BID ity of tablet 12.5 07:45: [...] 2021-05- No 1{tbl} 1 tablet, Univers en-codeine 0-03-17 Oral, ity of (TYLENOL 06:56: [facility] [place] [facility] 300-30 37 :50 Starting Medic al mg tablet 1 on Sat Branch tablet 03/16/22 at 0156, Until 03/17/22 at 0912, Routine, Pain (scale 4-6) acetaminoph 2021-05 Yes 650mg 650 mg, Un hillary en 0-28 Oral, ity of (TYLENOL) 06:56: Q6Olpe, [place] tablet 650 35 Starting Medic al mg on Sat Branch 03/16/22 at 0156, Until Discontinu ed, Routine, Pain (scale 1-3) HYDROcodone 2021-05- No 1{tbl} 1 tablet, Univers -acetaminop 0-26 10-26 Oral, ity of hen (NORCO) 22:30: 22:20 ONCE, 1 [place] 10-325 mg 00 :00 dose, On Medica l tablet 1 Sat Branch tablet 03/14/22 at 1730, Routine iopamidol 2021-05- No [id number] 65mL 65 mL, Un hillary (ISOVUE 03-14 Intravenou ity o f 370-500 mL) 21:30: [...] 30mL/kg at 999 Un hillary (NS) bolus 03-14 mL/hr, ity of infusion 20:15: 23:27 2,994 mL [place] 2,994 mL 00 :00 (30 mL/kg Medica l ?99.8 kg), Branch IV Piggyback, ONCE, 1 dose, On 03/14/22 at 1515, STAT ertapenem 2021-05- No 1000mg 1,000 mg, Univers (INVANZ) 03-14 IV ity of 1,000 mg in 19:30: 21:22 Piggyback, [place] NaCl 0.9% 00 :00 ONCE, 1 Medical (NS) 50 mL dose, On Branc h MINI-BAG 03/14/22 at 1430, Administer over 30 Minutes, 50 mL
Reas on for Anti-Infec tive: Documented Infection< br>Documen hernandez Infection Site: Abdominal& lt;br>Dura tion of Therapy: 7 days
Re stricted use approved by: Documented ESBL infection or colonizati on cefdinir 2021-05- No [id number] 300mg Take 1 Un hillary 300 mg 0-26 11-10 capsule by ity of capsule 00:00: 05:59 mouth [place] 00 :00 every 12 Medical ([facility] Branch hours for 14 days. metroNIDAZO 2021-05- No [id number] 500mg Take 1 Univers LE 500 mg 0-26 11-10 tablet by ity of tablet 00:00: 05:59 mouth in [place] 00 :00 the [facility] morning Branch and 1 tablet in the evening. Do all this for 14 days. fluconazole 2021-05- No [id number] 150mg Take 1 Univers 150 mg 0-26 11-10 tablet by ity of tablet 00:00: 05:59 mouth in [place] 00 :00 the [facility] Branch for 14 doses. cefdinir 2021-05- No [id number] 300mg Take 1 Un hillary 300 mg 0-26 10-29 capsule by ity of capsule 00:00: 00:00 mouth [place] 00 :00 every 12 Medical ([facility]) Branch hours for 14 days. metroNIDAZO 2021-05- No [id number] 500mg Take 1 [facility] LE 500 mg 0-26 10-29 tablet by ity of tablet 00:00: 00:00 mouth in [place] 00 :00 the [facility] Branch and 1 tablet in the evening. Do all this for 14 days. fluconazole 2021-05- No [id number] 150mg Take 1 Univers 150 mg 0-26 10-29 tablet by ity of tablet 00:00: 00:00 mouth in [place] 00 :00 the [facility] for 14 doses. enoxaparin 2021-05 Yes 40mg QD Inject [address] (LOVENOX) 0-25 mg [facility] mg/0.4 15:17: subcutaneo Me dical mL Syrg 26 [facility] daily. enoxaparin 2021-05 Yes 40mg QD Inject [address] (LOVENOX) 0-25 mg [facility] 40 mg/0.4 15:17: subcutaneo Me dical mL Syrg 26 [facility] daily. enoxaparin 2021-05 Yes 40mg QD Inject [address] (LOVENOX) 0-25 mg [facility] 40 mg/0.4 15:17: subcutaneo Me dical mL Syrg 26 [facility] Center daily. fluconazole 2021-05- No 400mg QD [...] [facility] (RisperDAL) 0-24 10-24 mg by Jessicakes 0.5 MG 12:03: 00:00 mouth Medical tablet [...] 00:00 mouth Medical tablet 30 :00 nightly. [place] risperiDONE 2021-05- No .5mg QD Take 0.[address] (RisperDAL) 0-24 10-24 mg by [facility] 0.5 MG 12:03: 00:00 mouth Medical tablet 30 :00 daily. [place] metFORMIN 2021-05- No 500mg Take [address] (GLUCOPHAGE 0-24 10-24 mg by [facility] ) 500 MG 12:03: 00:00 mouth 2 Medic al tablet 30 :00 (two) Center times daily with breakfast and dinner. traZODone 2021-05- No 100mg QD Take [address] (DESYREL) 0-24 10-24 mg by [facility] 100 MG 12:03: 00:00 mouth Medical tablet 30 :00 nightly. [place] risperiDONE 2021-05- No .5mg QD Take 0.[address] (RisperDAL) 0-24 10-24 mg by [facility] 0.5 MG 12:03: 00:00 mouth Medical tablet 30 :00 daily. [place] metFORMIN 2021-05- No 500mg Take [address] (GLUCOPHAGE 0-24 10-24 mg by [facility] ) 500 MG 12:03: 00:00 mouth 2 Medic al tablet 30 :00 (two) Center times daily with breakfast and dinner. traZODone 2021-05- No 100mg QD Take [address] (DESYREL) 0-24 10-24 mg by [facility] 100 MG 12:03: 00:00 mouth Medical tablet 30 :00 nightly. [place] risperiDONE 2021-05- No .5mg QD Take 0.[address] (RisperDAL) 0-24 10-24 mg by [facility] 0.5 MG 12:03: 00:00 mouth Medical tablet 30 :00 daily. [place] metFORMIN 2021-05- No 500mg Take [address] (GLUCOPHAGE 0-24 10-24 mg by [facility] ) 500 MG 12:03: 00:00 mouth 2 Medic al tablet 30 :00 (two) Center times daily with breakfast and dinner. traZODone 2021-2021- No 100mg QD Take [address] (DESYREL) 0-24 10-24 mg by [facility] 100 MG 12:03: 00:00 mouth Medical tablet 30 :00 nightly. [place] risperiDONE 2021-05- No .5mg QD Take 0.[address] (RisperDAL) 0-24 10-24 mg by [facility] 0.5 MG 12:03: 00:00 mouth Medical tablet 30 :00 daily. [place] metFORMIN 2021-05- No 500mg Take [address] (GLUCOPHAGE 0-24 10-24 mg by [facility] ) 500 MG 12:03: 00:00 mouth 2 Medic al tablet 30 :00 (two) Center times daily with breakfast and dinner. traZODone 2021-05- No 100mg QD Take [address] (DESYREL) 0-24 10-24 mg by [facility] 100 MG 12:03: 00:00 mouth Medical tablet 30 :00 nightly. [place] risperiDONE 2021-05- No .5mg QD Take 0.[address] (RisperDAL) 0-24 10-24 mg by [facility] 0.5 MG 12:03: 00:00 mouth Medical tablet 30 :00 daily. [place] metFORMIN 2021-05- No 500mg Take [address] (GLUCOPHAGE 0-24 10-24 mg by [facility] ) 500 MG 12:03: 00:00 mouth 2 Medic al tablet 30 :00 (two) Center times daily with breakfast and dinner. traZODone 2021-05- No 100mg QD Take [address] (DESYREL) 0-24 10-24 mg by [facility] 100 MG 12:03: 00:00 mouth Medical tablet 30 :00 nightly. [place] risperiDONE 2021-05- No .5mg QD Take 0.[address] (RisperDAL) 0-24 10-24 mg by [facility] 0.5 MG 12:03: 00:00 mouth Medical tablet 30 :00 daily. [place] metFORMIN 2021-05- No 500mg Take [address] (GLUCOPHAGE 0-24 10-24 mg by [facility] ) 500 MG 12:03: 00:00 mouth 2 Medic al tablet 30 :00 (two) Center times daily with breakfast and dinner. traZODone 2021-05- No 100mg QD Take [address] (DESYREL) 0-24 10-24 mg by [facility] 100 MG 12:03: 00:00 mouth Medical tablet 30 :00 nightly. [place] risperiDONE 2021-05- No .5mg QD Take 0.[address] (RisperDAL) 0-24 10-24 mg by [facility] 0.5 MG 12:03: 00:00 mouth Medical tablet 30 :00 daily. [place] metFORMIN 2021-05- No 500mg Take [address] (GLUCOPHAGE 0-24 10-24 mg by [facility] ) 500 MG 12:03: 00:00 mouth 2 Medic al tablet 30 :00 (two) Center times daily with breakfast and dinner. traZODone 2021-05- No 100mg QD Take [address] (DESYREL) 0-24 10-24 mg by [facility] 100 MG 12:03: 00:00 mouth Medical tablet 30 :00 nightly. [place] risperiDONE 2021-05- No .5mg QD Take 0.[address] (RisperDAL) 0-24 10-24 mg by [facility] 0.5 MG 12:03: 00:00 mouth Medical tablet 30 :00 daily. [place] metFORMIN 2021-05- No 500mg Take [address] (GLUCOPHAGE 0-24 10-24 mg by [facility] ) 500 MG 12:03: 00:00 mouth 2 Medic al tablet 30 :00 (two) Center times daily with breakfast and dinner. traZODone 2021-05- No 100mg QD Take [address] (DESYREL) 0-24 10-24 mg by [facility] 100 MG 12:03: 00:00 mouth Medical tablet 30 :00 nightly. [place] risperiDONE 2021-05- No .5mg QD Take 0.[address] (RisperDAL) 0-24 10-24 mg by [facility] 0.5 MG 12:03: 00:00 mouth Medical tablet 30 :00 daily. [place] metFORMIN 2021-05- No 500mg Take 500 [facility] [...] Take [address] -acetaminop 0-24 -07 tablet by Jessica mehta (NORCO 00:00: 00:00 [...] Take [address] -acetaminop 0-24 - tablet by Jessica mehta (NORCO 00:00: 00:00 [...] Take [address] -acetaminop 0-24 - tablet by Jessica mehta (NORCO 00:00: 00:00 [...] Take [address] -acetaminop 0-24 - tablet by Jessica mehta (NORCO 00:00: 00:00 [...] Take [address] -acetaminop 0-24 -07 tablet by Jessica mehta (NORCO 00:00: 00:00 [...] St -acetaminop 0-24 01-07 tablet by Jessica kes hen (NORCO 00:00: 00:00 mouth Medic al 5-325) 00 :00 every 6 Center 5-325 mg (six) per tablet hours as needed for Pain for up to 10 doses. Max Daily Amount: 4 tablets mycophenola 2021-05 No 180mg Q.5D Take [address] 0-24 01-07 tablet [facility] (MYFORTIC) 00:00: 00:00 (180 mg Med ical 180 MG EC 00 :00 total) by Cente r tablet mouth 2 (two) times daily. metroNIDAZO 2021-05 No 500mg Take [address] [facility] [address] [facility] [...] (two) times daily for 27 days. metroNIDAZO 2021-05 No 500mg Take [address] [facility] [...] for 27 days. gabapentin 2021-05- No 400mg Q.[id number] Take [address] [facility] (NEURONTIN) 0-24 10-29 [id number] capsule [facility] 400 MG 00:00: 23:59 3D [...] QD Take [address] [facility] (ZOLOFT) 50 0-03-17 tablet (50 L ukes MG tablet 00:00: 23:59 mg total) Me dical 00 :00 by mouth Center daily for 5 days. traZODone 2021-05- No 100mg QD Take [address] [facility] (DESYREL) 0-12 03- tablet [facility] 100 MG 00:00: 23:59 (100 mg Medical tablet 00 :00 total) by Center mouth nightly for 5 days. gabapentin 2021-05- No 400mg Q.[id number] Take [address] [facility] (NEURONTIN) 0-24 - [id number] capsule [facility] 400 MG 00:00: 23:59 3D [...] for 5 days. gabapentin 2021-05- No 400mg Q.[id number] Take [address] [facility] (NEURONTIN) 0-24 03-17 [id number] capsule [facility] 400 MG 00:00: 23:59 3D [...] for 5 days. gabapentin 2021-05 No 400mg Q.62614510 Take [address] [facility] (NEURONTIN) 0-24 03-17 [id number] capsule [facility] 400 MG 00:00: 23:59 3D [...] 40mg QD Take [address] [facility] e 03-17 tablet (40 [facility] (PROTONIX) 00:00: 23:59 [...] 100mg QD Take [address] [facility] (DESYREL) 0-03-17 tablet [facility] 100 MG 00:00: 23:59 (100 mg Medical tablet 00 :00 total) by Center mouth nightly for 5 days. gabapentin 2021-05 No 400mg Q.[id number] Take [address] [facility] (NEURONTIN) 0-24 - [id number] capsule [facility] 400 MG 00:00: 23:59 3D [...] for 5 days. gabapentin 2021-05- No 400mg Q.[id number] Take [address] [facility] (NEURONTIN) 0-24 - [id number] capsule [facility] 400 MG 00:00: 23:59 3D [...] for 5 days. gabapentin 2021-05- No 400mg Q.[id number] Take [address] [facility] (NEURONTIN) 0-24 - [id number] capsule [facility] 400 MG 00:00: 23:59 3D [...] for 5 days. gabapentin 2021-05- No 400mg Q.57156136 Take [address] [facility] (NEURONTIN) 0-24 - [id number] capsule [facility] 400 MG 00:00: 23:59 3D [...] for 5 days. gabapentin 2021-05 No 400mg Q.[id number] Take [address] [facility] (NEURONTIN) 003-17 [id number] capsule [facility] 400 MG 00:00: 23:59 3D [...] for 5 days. gabapentin 2021-05 No 400mg Q.[id number] Take [address] [facility] (NEURONTIN) 0-24 - [id number] capsule [facility] 400 MG 00:00: 23:59 3D [...] Center mouth daily for 7 days. fluconazole 2021-2- No 200mg QD Take [address] (DIFLUCAN) 02-12- tablet [facility] 200 MG 00:00: 23:59 (200 mg Medical tablet 00 :00 total) by Center mouth daily for 7 days. fluconazole 2021- 2022- No 200mg QD Take 1 CH [...] Center mouth daily for 7 days. lidocaine 2021-2021- No 1{patch Q24H Place [address] (LIDODERM) 02-11 } patch onto Jessica kes 5 % patch 00:00: 23:59 the skin Med ical 00 :00 daily for Center 30 days Remove & Discard patch within 12 hours or as directed by . lidocaine 2021-0 2021- No 1{patch Q24H Place 1 C [...] hours or as directed by MD. lidocaine 2021-2- No 1{patch Q24H Place [address] (LIDODERM) 9-25 10-25 } patch onto Jessica kes 5 % patch 00:00: 23:59 the skin Med ical 00 :00 daily for Center 30 days Remove & Discard patch within 12 hours or as directed by MD. lidocaine 2021-0 2- No 1{patch Q24H Place [address] (LIDODERM) 9-25 10-25 } patch onto Jessica kes 5 % patch 00:00: 23:59 the skin Med ical 00 :00 daily for Center 30 days Remove & Discard patch within 12 hours or as directed by MD. ciprofloxac 2021-2021- No 500mg Take [address] in HCl 9-25 10-24 tablet [facility] (CIPRO) 500 00:00: 00:00 (500 mg Me dical MG tablet 00 :00 [facility] (twelve) hours. senna-docus [...] injection (three) times daily before meals. mycophenola 2021-2021- No 250mg Q.5D Take 1 [facility] I [...] r mouth every 12 (twelve) hours. senna-docus 2021-2- No 2{tbl} Q.5D Take [address] ate 9-25 10-24 tablets by [facility] (SENOKOT S) 00:00: 00:00 mouth 2 Me dical 8.6-50 mg 00 :00 (two) Center per tablet times daily. metroNIDAZO 2021-0 2021- No 500mg Take 1 CH [...] mouth 2 (two) times daily. ciprofloxac 2021-0 2- No 500mg Take 1 CH [...] Center per tablet times daily. metroNIDAZO 2021-0 2021- No 500mg Take [address] LE (FLAGYL) 9-25 10-24 tablet [facility] 500 MG 00:00: 00:00 (500 mg Medical tablet 00 :00 total) by Center mouth every 8 (eight) hours. insulin 2021-0 202- No 0U Inject 0-[address] [facility] [...] mouth 2 (two) times daily. traMADoL 2021-0 2021- No 100mg Q.25D Take [...] Take [address] [facility] e glycol 02-11-28 by mouth 2 Luke s (GLYCOLAX) 00:00: 23:59 (two) Medic al 17 gram 00 :00 times Center packet daily for 3 days. polyethylen 2021- No 17g Q.5D Take [address] [facility] e glycol 02-11-28 by mouth 2 Luke s (GLYCOLAX) 00:00: 23:59 (two) Medic al 17 gram 00 :00 times Center packet daily for 3 days. polyethylen 2021- No 17g Q.5D Take [address] [facility] e glycol 02-11-28 by mouth 2 Luke s (GLYCOLAX) 00:00: [...] Take [address] [facility] e glycol 02-11-28 by mouth 2 Luke s (GLYCOLAX) 00:00: 23:59 (two) Medic al 17 gram 00 :00 times Center packet daily for 3 days. polyethylen 2021- No 17g Q.5D Take [address] [facility] e glycol 02-11-28 by mouth 2 Luke s (GLYCOLAX) 00:00: [...] Q.5D Take [address] te 8-03 02-25 tablet [facility] (CELLCEPT) 00:00: 00:00 (500 [...] Q.5D Take [address] te 01-03-16 tablet [facility] (CELLCEPT) 00:00: 23:59 (500 mg [...] 2021- No Take [address] [facility] (DELTASONE) 8-09 09-25 tablets Luke s 5 MG tablet 00:00: [...] 800mg Q24H Inject [address] [facility] (CUBICIN) 8-09 08-16 mg [facility] in sodium 00:00: 23:59 [...] 800mg Q24H Inject [address] [facility] (CUBICIN) - 08-16 mg [facility] in sodium 00:00: 23:59 [...] Inject [address] [facility] 100 mg in - 08-16 mg [facility] NS 0.9% 100 00:00: [...] [address] (INVanz) 1 8 08-16 intravenou Jessica kes g in NS [...] Center IVPB for 7 days. DAPTOmycin 2021-0 2- No 800mg Q24H Inject [address] [...] 25mg QD Take [address] [facility] (DELTASONE) 8-09 08- tablets Luke s 5 MG tablet 00:00: 00:00 (25 mg Med ical 00 :00 total) by Center mouth daily for 30 days. predniSONE 2021-0 2021- No 25mg QD Take [address] [facility] (DELTASONE) 12-26- tablets Luke s 5 MG tablet 00:00: 00:00 (25 mg Med ical 00 :00 total) by Center mouth daily for 30 days. predniSONE 2021-0 2021- No 25mg QD Take [address] [facility] (DELTASONE) 12-26- tablets Luke s 5 MG tablet 00:00: 00:00 (25 mg Med ical 00 :00 total) by Center mouth daily for 30 days. predniSONE 2021-0 2021- No 25mg QD Take [address] [facility] (DELTASONE) 12-26- tablets Luke s 5 MG tablet 00:00: 00:00 (25 mg Med ical 00 :00 total) by Center mouth daily for 30 days. predniSONE 2021-0 2021- No 25mg QD Take [address] [facility] (DELTASONE) 12-26- tablets Luke s 5 MG tablet 00:00: 00:00 (25 mg Med ical 00 :00 total) by Center mouth daily for 30 days. predniSONE 2021-0 2021- No 25mg QD Take [address] [facility] (DELTASONE) 12-26- tablets Luke s 5 MG tablet 00:00: 00:00 (25 mg Med ical 00 :00 total) by Center mouth daily for 30 days. predniSONE 2021-0 2021- No 25mg QD Take [address] [facility] (DELTASONE) 12-26- tablets Luke s 5 MG tablet 00:00: 00:00 (25 mg Med ical 00 :00 total) by Center mouth daily for 30 days. risperiDONE 0 Yes .5mg QD Take 0.[address] (RisperDAL) 8-08 mg by Jarad 0.5 MG 23:36: mouth Medical tablet 04 daily. Center metFORMIN 2021-0 Yes 500mg Take [address] [facility] (GLUCOPHAGE 8-08 mg by Jarad ) 500 MG 23:36: mouth 2 Medica l tablet 04 (two) Center times daily with breakfast and dinner. traZODone Yes 100mg QD Take [address] [facility] (DESYREL) 8-08 mg by [facility] 100 MG 23:36: mouth Medical tablet 04 nightly. [place] enoxaparin Yes 40mg QD Inject [address] (LOVENOX) 8-08 mg [facility] 40 mg/0.4 23:36: [facility] 2021- 2022- No 50mg QD Take [address] [facility] (DELTASONE) 12-25-08 by mouth Jody es 50 MG 16:30: 00:00 daily. Medical tablet 18 :00 [place] predniSONE 2021-0 2- No 50mg QD Take [address] [facility] (DELTASONE) 12-25 by mouth Jody es 50 MG 16:30: 00:00 daily. Medical tablet 18 :00 [place] predniSONE 2021-0 2022- No 50mg QD Take [address] [facility] (DELTASONE) 12-25- by mouth Jody es 50 MG 16:30: 00:00 daily. Medical tablet 18 :00 [place] predniSONE 2021-0 2022- No 50mg QD Take [address] [facility] (DELTASONE) 12-25- by mouth Jody es 50 MG 16:30: 00:00 daily. Medical tablet 18 :00 [place] predniSONE 2021-0 2- No 50mg QD Take [address] [facility] (DELTASONE) 12-25- by mouth Jody es 50 MG 16:30: 00:00 daily. Medical tablet 18 :00 [place] predniSONE 2021-0 2022- No 50mg QD Take [address] [facility] (DELTASONE) 12-25- by mouth Jody es 50 MG 16:30: 00:00 daily. Medical tablet 18 :00 [place] predniSONE 2021-0 2022- No 50mg QD Take [address] [facility] (DELTASONE) 12-25- by mouth Jody es 50 MG 16:30: 00:00 daily. Medical tablet 18 :00 [place] predniSONE 2021-0 2022- No 50mg QD Take [address] [facility] (DELTASONE) 12-25- by mouth Jody es 50 MG 16:30: 00:00 daily. Medical tablet 18 :00 [place] predniSONE 2021-0 2022- No 50mg QD Take [address] [facility] (DELTASONE) 12-25-08 by mouth Jody es 50 MG 16:30: 00:00 daily. Medical tablet 18 :00 Center predniSONE 2021-0 2022- No 50mg QD Take [address] [facility] (DELTASONE) 12-25-08 by mouth Jody es 50 MG 16:30: 00:00 daily. Medical tablet 18 :00 Center predniSONE 2-0 2022- No 50mg QD Take [address] [facility] (DELTASONE) 12-25- by mouth Jody es 50 MG 16:30: 00:00 daily. Medical tablet 18 :00 Center HYDROcodone 2021-0 Yes 1{tbl} Take [address] [facility] [address] [facility] [...] Max Daily Amount: 4 tablets HYDROcodone 2022-0 2022- No 1{tbl} Take [address] -acetaminop 8-08 10-24 tablet by Jessica mehta (NORCO 00:00: 00:00 mouth Medic al 5-325) 00 :00 every 6 Center 5-325 mg (six) per tablet hours as needed for Pain for up to 10 doses. Max Daily Amount: 4 tablets HYDROcodone 2022-0 2022- No 1{tbl} Take [address] -acetaminop 8-08 10-24 tablet by Jessica mehta (NORCO 00:00: 00:00 mouth Medic al 5-325) 00 :00 every 6 Center 5-325 mg (six) per tablet hours as needed for Pain for up to 10 doses. Max Daily Amount: 4 tablets HYDROcodone 202-0 2- No 1{tbl} Take 1 [facility] [...] Max Daily Amount: 4 tablets HYDROcodone 2022-0 2022- No 1{tbl} Take [address] -acetaminop 8-08 10-24 tablet by Jessica mehta (NORCO 00:00: 00:00 mouth Medic al 5-325) 00 :00 every 6 Center 5-325 mg (six) per tablet hours as needed for Pain for up to 10 doses. Max Daily Amount: 4 tablets HYDROcodone 2022-0 2022- No 1{tbl} Take [address] -acetaminop 12-25 10-24 tablet by Jessica mehta (NORCO 00:00: 00:00 mouth Medic al 5-325) 00 :00 every 6 Center 5-325 mg (six) per tablet hours as needed for Pain for up to 10 doses. Max Daily Amount: 4 tablets sulfamethox Yes 160mg{t Q.[id number] Take [address] [facility] azole-trime 5-25 rimetho [id number] tablet [facility] thoprim 00:00: prim} 3W (160 mg of Med ical (BACTRIM 00 trimethopr Cente r DS) 800-160 im total) mg per by mouth 3 tablet (three) times a week I. sulfamethox 2021- No 160mg{t Q.03924095 Take [address] [facility] azole-trime 5-25 -25 rimetho [id number] tablet [facility] thoprim 00:00: 00:00 prim} 3W (160 mg of Me dical (BACTRIM 00 :00 trimethopr Cente r DS) 800-160 im total) mg per by mouth 3 tablet (three) times a week I. sulfamethox 2021- No 160mg{t Q.[id number] Take [address] [facility] azole-trime 5-25 09-25 rimetho [id number] tablet [facility] thoprim 00:00: 00:00 prim} 3W (160 mg of Me dical (BACTRIM 00 :00 trimethopr Cente r DS) 800-160 im total) mg per by mouth 3 tablet (three) times a week I. sulfamethox 2021- No 160mg{t Q.[id number] Take [address] [facility] [address] azole-trime 5-25 09-25 rimetho [id number] [facility] 00:[facility]: 00:00 prim} 3W (160 mg of Me dical (BACTRIM 00 :00 trimethopr Cente r DS) 800-160 im total) mg per by mouth 3 tablet (three) times a week I. sulfamethox 2021-2021- No 160mg{t Q.[id number] Take [address] [facility] [address] azole-trime 5-25 -25 rimetho [id number] [facility] 00:[facility]: 00:00 prim} 3W (160 mg of Me dical (BACTRIM 00 :00 trimethopr Cente r DS) 800-160 im total) mg per by mouth 3 tablet (three) times a week I. sulfamethox 2021- No 160mg{t Q.[id number] Take [address] [facility] [address] azole-trime 5-25 - rimetho [id number] [facility] 00:[facility]: 00:00 prim} 3W (160 mg of Me dical (BACTRIM 00 :00 trimethopr Cente r DS) 800-160 im total) mg per by mouth 3 tablet (three) times a week I. sulfamethox 2021- No 160mg{t Q.[id number] Take [address] [facility] [address] azole-trime 5-25 02-11 rimetho [id number] [facility] 00:[facility]: 00:00 prim} 3W (160 mg of Me dical (BACTRIM 00 :00 trimethopr Cente r DS) 800-160 im total) mg per by mouth 3 tablet (three) times a week I. sulfamethox 2021- No 160mg{t Q.[id number] Take [address] [facility] [address] azole-trime 5-25 - rimetho [id number] [facility]: 00:00 prim} 3W (160 mg of Me dical (BACTRIM 00 :00 trimethopr Cente r DS) 800-160 im total) mg per by mouth 3 tablet (three) times a week I. sulfamethox 2021- No 160mg{t Q.[id number] Take [address] [facility] azole-trime 5-25 -25 rimetho [id number] tablet [facility] 00:[facility]: 00:00 prim} 3W (160 mg of Me dical (BACTRIM 00 :00 trimethopr Cente r DS) 800-160 im total) mg per by mouth 3 tablet (three) times a week I. sulfamethox 2021- No 160mg{t Q.[id number] Take [address] [facility] azole-trime 10-11- rimetho [id number] tablet [facility] 00:00: 00:00 prim} 3W (160 mg of Me dical (BACTRIM 00 :00 trimethopr Cente r DS) 800-160 im total) mg per by mouth 3 tablet (three) times a week I. sulfamethox 2021- No 160mg{t Q.[id number] Take [address] [facility] azole-trime 10-11- rimetho [id number] tablet [facility] 00:[facility]: 00:00 prim} 3W [...] tablet mouth daily. metroNIDAZO 2021- No 500mg Q.[id number] Take [address] [facility] LE (FLAGYL) 10-10 [id number] tablet [facility] 500 MG 00:00: 00:00 3D (500 mg Medical tablet 00 :00 total) by Center mouth 3 (three) times daily. levoFLOXaci 2021- No 750mg QD Take [address] [facility] 10-10- [facility] (LEVAQUIN) 00:00: 00:00 (750 mg Med ical 750 MG 00 :00 total) by Center tablet mouth daily. metroNIDAZO 2021- No 500mg Q.[id number] Take [address] [facility] (FLAGYL) 10-10 [id number] tablet [facility] 500 MG 00:00: 00:00 3D (500 mg Medical tablet 00 :00 total) by Center mouth 3 (three) times daily. levoFLOXaci 2021-2021- No 750mg QD Take [address] [facility] 10-10-08 tablet [facility] (LEVAQUIN) 00:00: 00:00 (750 mg Med ical 750 MG 00 :00 total) by Center tablet mouth daily. metroNIDAZO 2022-0 2022- No 500mg Q.[id number] Take [address] [facility] (FLAGYL) 10-10- [id number] [facility] 500 MG 00:00: 00:00 3D (500 mg Medical tablet 00 :00 total) by Center mouth 3 (three) times daily. levoFLOXaci 2022-0 2022- No 750mg QD Take [address] [facility] 10-10- [facility] (LEVAQUIN) 00:00: 00:00 (750 mg Med ical 750 MG 00 :00 total) by Center tablet mouth daily. metroNIDAZO 2022-0 2022- No 500mg Q.[id number] Take [address] [facility] (FLAGYL) 10-10 [id number] [facility] 500 MG 00:00: 00:00 3D (500 mg Medical tablet 00 :00 total) by Center mouth 3 (three) times daily. levoFLOXaci 2022-0 2022- No 750mg QD Take [address] [facility] 10-10- [facility] (LEVAQUIN) 00:00: 00:00 (750 mg Med ical 750 MG 00 :00 total) by Center tablet mouth daily. metroNIDAZO 2022-0 2022- No 500mg Q.[id number] Take [address] [facility] (FLAGYL) 10-10- [id number] [facility] 500 MG 00:00: 00:00 3D (500 mg Medical tablet 00 :00 total) by Center mouth 3 (three) times daily. levoFLOXaci 2022-0 2022- No 750mg QD Take [address] [facility] 10-10-08 tablet [facility] (LEVAQUIN) 00:00: 00:00 (750 mg Med ical 750 MG 00 :00 total) by Center tablet mouth daily. metroNIDAZO 2022-0 2022- No 500mg Q.[id number] Take [address] [facility] (FLAGYL) 10-10- [id number] [facility] 500 MG 00:00: 00:00 3D (500 mg Medical tablet 00 :00 total) by Center mouth 3 (three) times daily. levoFLOXaci 2022-0 2022- No 750mg QD Take [address] [facility] 10-10 [facility] (LEVAQUIN) 00:00: 00:00 (750 mg Med ical 750 MG 00 :00 total) by Center tablet mouth daily. metroNIDAZO 2022-0 2022- No 500mg Q.[id number] Take [address] [facility] (FLAGYL) 10-10 [id number] [facility] 500 MG 00:00: 00:00 3D (500 mg Medical tablet 00 :00 total) by Center mouth 3 (three) times daily. levoFLOXaci 2022-0 2022- No 750mg QD Take [address] [facility] 10-10 tablet [facility] (LEVAQUIN) 00:00: 00:00 (750 mg Med ical 750 MG 00 :00 total) by Center tablet mouth daily. metroNIDAZO 2022-0 2022- No 500mg Q.[id number] Take [address] [facility] (FLAGYL) 10-10 [id number] [facility] 500 MG 00:00: 00:00 3D (500 mg Medical tablet 00 :00 total) by Center mouth 3 (three) times daily. levoFLOXaci 2022-0 2022- No 750mg QD Take [address] [facility] 10-10 tablet [facility] (LEVAQUIN) 00:00: 00:00 (750 mg Med ical 750 MG 00 :00 total) by Center tablet mouth daily. metroNIDAZO 2022-0 2022- No 500mg Q.[id number] Take [address] [facility] (FLAGYL) 10-10 [id number] [facility] 500 MG 00:00: 00:00 3D (500 mg Medical tablet 00 :00 total) by Center mouth 3 (three) times daily. levoFLOXaci 2022-0 2022- No 750mg QD Take [address] [facility] 10-10 [facility] (LEVAQUIN) 00:00: 00:00 (750 mg Med ical 750 MG 00 :00 total) by Center tablet mouth daily. metroNIDAZO 2022-0 2022- No 500mg Q.[id number] Take [address] [facility] (FLAGYL) 10-10 [id number] [facility] MG 00:00: 00:00 3D (500 mg Medical tablet 00 :00 total) by Center mouth 3 (three) times daily. levoFLOXaci 2021- No 750mg QD Take [address] [facility] [address] [facility] 10-10 [facility] (LEVAQUIN) 00:00: 00:00 (750 mg Med ical 750 MG 00 :00 total) by Center tablet mouth daily. metroNIDAZO 2021- No 500mg Q.[id number] Take [address] [facility] (FLAGYL) 10-10 [id number] [facility] MG 00:00: 00:00 3D [...] 50mg QD Take [address] [facility] (DELTASONE) 5-24 06-23 tablet (50 [facility] 50 MG 00:00: [...] Amount: 90 mg sulfamethox 2021- No 160mg{t Q.[id number] Take [address] [facility] azole-trime 09-25 rimetho [id number] tablet [facility] 00:00: 00:00 prim} 3W (160 mg of Me dical (BACTRIM 00 :00 trimethopr Cente r DS) 800-160 im total) mg per by mouth 3 tablet (three) times a week SAT/SAT/ I. sulfamethox 2021-2021- No 160mg{t Q.[id number] Take [address] [facility] azole-trime 09-25- rimetho [id number] tablet [facility] 00:00: 00:00 prim} 3W (160 mg of Me dical (BACTRIM 00 :00 trimethopr Cente r DS) 800-160 im total) mg per by mouth 3 tablet (three) times a week SAT/SAT/ I. sulfamethox 2021- No 160mg{t Q.[id number] Take [address] [facility] azole-trime 09-25 rimetho [id number] [facility] 00:00: 00:00 prim} 3W (160 mg of Me dical (BACTRIM 00 :00 trimethopr Cente r DS) 800-160 im total) mg per by mouth 3 tablet (three) times a week I. sulfamethox 2021- No 160mg{t Q.[id number] Take [address] [facility] azole-trime 09-25 rimetho [id number] [facility] 00:00: 00:00 prim} 3W (160 mg of Me dical (BACTRIM 00 :00 trimethopr Cente r DS) 800-160 im total) mg per by mouth 3 tablet (three) times a week I. sulfamethox 2021- No 160mg{t Q.[id number] Take [address] [facility] azole-trime 09-25 rimetho [id number] tablet [facility] 00:00: 00:00 prim} 3W (160 mg of Me dical (BACTRIM 00 :00 trimethopr Cente r DS) 800-160 im total) mg per by mouth 3 tablet (three) times a week I. sulfamethox 2021- No 160mg{t Q.[id number] Take [address] [facility] azole-trime 09-25 rimetho [id number] [facility] 00:00: 00:00 prim} 3W (160 mg of Me dical (BACTRIM 00 :00 trimethopr Cente r DS) 800-160 im total) mg per by mouth 3 tablet (three) times a week I. sulfamethox 2021- No 160mg{t Q.[id number] Take [address] [facility] azole-trime 09-25 rimetho [id number] tablet [facility] 00:00: 00:00 prim} 3W (160 mg of Me dical (BACTRIM 00 :00 trimethopr Cente r DS) 800-160 im total) mg per by mouth 3 tablet (three) times a week I. sulfamethox 2021-0 2- No 160mg{t Q.[id number] Take [address] [facility] azole-trime 09-25 rimetho [id number] tablet [facility] 00:00: 00:00 prim} 3W (160 mg of Me dical (BACTRIM 00 :00 trimethopr Cente r DS) 800-160 im total) mg per by mouth 3 tablet (three) times a week I. sulfamethox 2021-2- No 160mg{t Q.[id number] Take [address] [facility] azole-trime 09-25 rimetho [id number] tablet [facility] 00:00: 00:00 prim} 3W (160 mg of Me dical (BACTRIM 00 :00 trimethopr Cente r DS) 800-160 im total) mg per by mouth 3 tablet (three) times a week I. sulfamethox 2021-2021- No 160mg{t Q.[id number] Take [address] [facility] azole-trime 09-25 rimetho [id number] tablet [facility] 00:00: 00:00 prim} 3W (160 mg of Me dical (BACTRIM 00 :00 trimethopr Cente r DS) 800-160 im total) mg per by mouth 3 tablet (three) times a week I. sulfamethox 2021-2021- No 160mg{t Q.[id number] Take [address] [facility] azole-trime 09-25 rimetho [id number] [facility] 00:00: 00:00 prim} 3W (160 mg of Me dical (BACTRIM 00 :00 trimethopr Cente r DS) 800-160 im total) mg per by mouth 3 tablet (three) times a week I. pantoprazol Yes 40mg QD Take [address] [facility] e 5-07 tablet (40 [facility] (PROTONIX) 00:00: mg total) Me dical 40 MG 00 by mouth Center tablet daily. sertraline 0 2022- No 50mg QD Take [address] [facility] (ZOLOFT) 50 5-07 05-07 tablet (50 [facility] MG tablet 00:00: 23:59 mg total) Me dical 00 :00 by mouth Center daily. pantoprazol 2021-0 2- No 40mg QD Take [address] [facility] e 5-07 10-24 tablet (40 [facility] (PROTONIX) 00:00: 00:00 mg total) M edical 40 MG 00 :00 by mouth Center tablet daily. sertraline 2021-0 2022- No 50mg QD Take 1 [facility] [...] :00 by mouth Center daily. pantoprazol 2-0 2- No 40mg QD Take 1 [facility] [...] 40mg QD Take [address] [facility] - 10-24 tablet (40 [facility] (PROTONIX) 00:00: 00:00 mg total) M edical 40 MG 00 :00 by mouth Center tablet daily. sertraline 2021-2021- No 50mg QD Take [address] [facility] (ZOLOFT) 50 09-23-24 tablet (50 [facility] MG tablet 00:00: 00:00 mg total) Me dical 00 :00 by mouth Center daily. pantoprazol 2021-2021- No 40mg QD Take [address] [facility] e 09-23-24 tablet (40 [facility] (PROTONIX) 00:00: 00:00 mg total) M edical 40 MG 00 :00 by mouth Center tablet daily. sertraline 2021-2021- No 50mg QD Take [address] [facility] (ZOLOFT) 50 09-2324 tablet (50 [facility] MG tablet 00:00: [...] Medic al injection 00 :00 Center predniSONE 2021-2021- No 80mg QD Take [address] [facility] (DELTASONE) 09-23 05-24 tablets Luke s 20 MG 00:00: 00:00 (80 mg Medical tablet 00 :00 total) by Center mouth daily for 10 days. furosemide 2021-2021- No 40mg QD Take [address] [facility] (LASIX) 40 09-23 05-24 tablet (40 Jessica kes MG tablet [...] 00:00: 00:00 Medic al injection 00 :00 [place] predniSONE 2021-0 2021- No 80mg QD Take [...] No Use as [facility] (HumuLIN N) 09-2324 directed. Jessica kes 100 unit/mL 00:00: 00:00 Medic al injection 00 :00 [place] predniSONE 2021-0 2- No 80mg QD Take [...] 00:00: 00:00 Medic al injection 00 :00 [place] predniSONE 2021-0 2022- No 80mg QD Take [...] 00:00: 00:00 Medic al injection 00 :00 [place] predniSONE 2-0 2022- No 80mg QD Take [...] 00:00: 00:00 Medic al injection 00 :00 [place] predniSONE 2-0 2022- No 80mg QD Take [address] [facility] (DELTASONE) 09-23-24 tablets [facility] 20 MG 00:00: 00:00 (80 mg Medical tablet 00 :00 total) by Center mouth daily for 10 days. furosemide 2-0 2022- No 40mg QD Take [address] [facility] (LASIX) 40 5-24 tablet (40 Jessica kes MG tablet 00:00: 00:00 mg total) Me dical 00 :00 by mouth Center daily. insulin NPH 2021-2021- No Use as [facility] (HumuLIN N) 09-23-24 directed. Jessica kes 100 unit/mL 00:00: 00:00 Medic al injection 00 :00 [place] predniSONE 2-0 2022- No 5mg QD Take [address] (DELTASONE) 5- 05-06 by mouth Jody es 5 MG tablet 16:07: 00:00 daily. Med ical 21 :00 [place] CARVEDILOL 2021-0 2021- No Take by [facility] ORAL 5-06 05-06 mouth. [facility] 16:07: 00:00 Medical 21 :00 [place] tramadol 2021-0 2021- No Take by [facility] 5-06 05-06 mouth. [facility] (TRAMADOL 16:07: 00:00 Medical ORAL) 21 :00 [place] predniSONE 2-0 2- No 5mg QD Take [address] [facility] (DELTASONE) 5 05-06 by mouth Jody es 5 MG tablet 16:07: 00:00 daily. Med ical 21 :00 [place] CARVEDILOL 2021-0 2021- No Take by [facility] ORAL 5-06 05-06 mouth. [facility] 16:07: 00:00 Medical 21 :00 [place] tramadol 2021-0 2021- No Take by [facility] 5-06 05-06 mouth. [facility] (TRAMADOL 16:07: 00:00 Medical ORAL) 21 :00 [place] predniSONE 2-0 2- No 5mg QD Take [address] [facility] (DELTASONE) 5- 05-06 by mouth Jody es 5 MG tablet 16:07: 00:00 daily. Med ical 21 :00 [place] CARVEDILOL 2021-0 2021- No Take by [facility] ORAL 5-06 05-06 mouth. [facility] 16:07: 00:00 Medical 21 :00 [place] tramadol 2-0 2021- No Take by [facility] 5-06 05-06 mouth. [facility] (TRAMADOL 16:07: 00:00 Medical ORAL) 21 :00 [place] predniSONE 2-0 2- No 5mg QD Take [address] [facility] (DELTASONE) 5-06 05-06 by mouth Jody es 5 MG tablet 16:07: 00:00 daily. Med ical 21 :00 [place] CARVEDILOL 2021-0 2021- No Take by [facility] ORAL 5-06 05-06 mouth. [facility] 16:07: 00:00 Medical 21 :00 Center tramadol 2-0 2- No Take by [facility] 5-06 05-06 mouth. [facility] (TRAMADOL 16:07: 00:00 Medical ORAL) 21 :00 Center predniSONE 2-0 2022- No 5mg QD Take [address] [facility] (DELTASONE) 5-06 05-06 by mouth Jody es 5 MG tablet 16:07: 00:00 daily. Med ical 21 :00 [place] CARVEDILOL 2021-0 2021- No Take by [facility] ORAL 5-06 05-06 mouth. [facility] 16:07: 00:00 Medical 21 :00 Center tramadol 2-0 2021- No Take by [facility] 5-06 05-06 mouth. [facility] (TRAMADOL 16:07: 00:00 Medical ORAL) 21 :00 [place] predniSONE 2-0 2- No 5mg QD Take [address] [facility] (DELTASONE) 5-06 05-06 by mouth Jody es 5 MG tablet 16:07: 00:00 daily. Med ical 21 :00 [place] CARVEDILOL 2021-0 2- No Take by [facility] ORAL 5-06 05-06 mouth. [facility] 16:07: 00:00 Medical 21 :00 Center tramadol 2021-0 2021- No Take by [facility] 5-06 05-06 mouth. [facility] (TRAMADOL 16:07: 00:00 Medical ORAL) 21 :00 [place] predniSONE 2-0 2022- No 5mg QD Take [address] [facility] (DELTASONE) 5-06 05-06 by mouth Jody es 5 MG tablet 16:07: 00:00 daily. Med ical 21 :00 [place] CARVEDILOL 2-0 2- No Take by [facility] ORAL 5-06 05-06 mouth. [facility] 16:07: 00:00 Medical 21 :00 Center tramadol 2-0 2021- No Take by [facility] 5-06 05-06 mouth. [facility] (TRAMADOL 16:07: 00:00 Medical ORAL) 21 :00 [place] predniSONE 2-0 2022- No 5mg QD Take [address] [facility] (DELTASONE) 5-06 05-06 by mouth Jody es 5 MG tablet 16:07: 00:00 daily. Med ical 21 :00 [place] CARVEDILOL 2021-0 2021- No Take by [facility] ORAL 5-06 05-06 mouth. [facility] 16:07: 00:00 Medical 21 :00 Center tramadol 2021-0 2021- No Take by [facility] 5-06 05-06 mouth. [facility] (TRAMADOL 16:07: 00:00 Medical ORAL) 21 :00 [place] predniSONE 2-0 2- No 5mg QD Take [address] (DELTASONE) 5-06 05-06 by mouth Jody es 5 MG tablet 16:07: 00:00 daily. Med ical 21 :00 [place] CARVEDILOL 2021-0 2021- No Take by [facility] ORAL 5-06 05-06 mouth. [facility] 16:: 00:00 Medical 21 :00 Center tramadol 2021-0 2021- No Take by [facility] 5-06 05-06 mouth. [facility] (TRAMADOL 16:07: 00:00 Medical ORAL) 21 :00 [place] predniSONE 2-0 2021- No 5mg QD Take [address] [facility] (DELTASONE) 5-06 05-06 by mouth Jody es 5 MG tablet 16:07: 00:00 daily. Med ical 21 :00 [place] CARVEDILOL 2021-0 2021- No Take by [facility] ORAL 5-06 05-06 mouth. [facility] 16:07: 00:00 Medical 21 :00 [place] tramadol 2021-0 2021- No Take by [facility] 5-06 05-06 mouth. [facility] (TRAMADOL 16:07: 00:00 Medical ORAL) 21 :00 [place] predniSONE 2-0 2022- No 5mg QD Take [address] [facility] (DELTASONE) 5-06 05-06 by mouth Jody es 5 MG tablet 16:07: 00:00 daily. Med ical 21 :00 [place] CARVEDILOL 2021-0 2021- No Take by [facility] ORAL 5-06 05-06 mouth. [facility] 16:07: 00:00 Medical 21 :00 Center tramadol 2021-0 2021- No Take by [facility] 5-06 05-06 mouth. [facility] (TRAMADOL 16:07: 00:00 Medical ORAL) 21 :00 [place] calcium 2022- No 2{tbl} Q.01567610 Take [address] [facility] carbonate-v 09-22 [id number] tablets by [facility] itamin D3 00:00: 23:59 [...] St e 09-22 topically [facility] (LOTRIMIN) 00:00: 23:59 2 (two) Med ical 1 % cream 00 :00 times Center daily. gabapentin 2022- No 400mg Q.[id number] Take [address] [facility] (NEURONTIN) 09-22 [id number] capsule [facility] 400 MG 00:00: 23:59 3D (400 mg Medical capsule 00 :00 total) by Center mouth 3 (three) times daily. hydrOXYchlo 2022- No 200mg Q.5D Take [address] roQUINE 09-22 tablet [facility] (PLAQUENIL) 00:00: 23:59 (200 mg Me dical 200 mg 00 :00 total) by Center tablet mouth 2 (two) times daily. metoprolol 2022- No 25mg Q.5D Take [address] [facility] tartrate 09-22 tablet (25 [facility] (LOPRESSOR) 00:00: 23:59 mg total) Medical 25 MG 00 :00 by mouth 2 Center tablet (two) times daily. pancrelipas 2022- No [id number]{ Take [address] [facility] e, 09-22 lipase} capsules [facility] Lip-Prot-Am 00:00: 23:59 (72,000 Me dical yl, (CREON) 00 :00 units of Cent er 24,000-76,0 lipase 00 -120,000 total) by unit CpDR mouth 3 capsule (three) times daily with meals. calcium 2022- No 2{tbl} Q.[id number] Take [address] [facility] carbonate-v 5-06 05-06 [id number] tablets by [facility] itamin D3 00:00: 23:59 3D mouth 3 Medi doreen (OSCAL-D) 00 :00 (three) Center 500 times mg(1,250mg) daily. -200 unit per tablet pancrelipas 2022- No [id number]{ Take [address] [facility] e, 5-06 05-06 lipase} capsules [facility] Lip-Prot-Am 00:00: 23:59 (72,000 Me dical yl, (CREON) 00 :00 units of Cent er 24,000-76,0 lipase 00 -120,000 total) by unit CpDR mouth 3 capsule (three) times daily with meals. calcium 2022- No 2{tbl} Q.[id number] Take [address] [facility] carbonate-v 5- 05-06 [id number] tablets by [facility] itamin D3 00:00: 23:59 3D mouth 3 Medi doreen (OSCAL-D) 00 :00 (three) Center 500 times mg(1,250mg) daily. -200 unit per tablet pancrelipas 2022- No [id number]{ Take [address] [facility] e, 5- 05-06 lipase} capsules [facility] Lip-Prot-[facility] 00:00: 23:59 (72,000 Me dical yl, (CREON) 00 :00 units of Cent er 24,000-76,0 lipase 00 -120,000 total) by unit CpDR mouth 3 capsule (three) times daily with meals. calcium 2022- No 2{tbl} Q.[id number] Take [address] [facility] carbonate-v 5-06 05-06 [id number] tablets by [facility] itamin D3 00:00: 23:59 3D mouth 3 Medi doreen (OSCAL-D) 00 :00 (three) Center 500 times mg(1,250mg) daily. -200 unit per tablet pancrelipas 2022- No [id number]{ Take [address] [facility], 5-06 05-06 lipase} capsules [facility] Lip-Prot-[facility] 00:00: 23:59 (72,000 Me dical yl, (CREON) 00 :00 units of Cent er 24,000-76,0 lipase 00 -120,000 total) by unit CpDR mouth 3 capsule (three) times daily with meals. calcium 2022- No 2{tbl} Q.[id number] Take [address] [facility] carbonate-v 5-06 05-06 [id number] tablets by [facility] itamin D3 00:00: 23:59 3D mouth 3 Medi doreen (OSCAL-D) 00 :00 (three) Center 500 times mg(1,250mg) daily. -200 unit per tablet pancrelipas 2022- No [id number]{ Take [address] [facility], 5- 05-06 lipase} capsules [facility]-Prot-[facility] 00:00: 23:59 (72,000 Me dical yl, (CREON) 00 :00 units of Cent er 24,000-76,0 lipase 00 -120,000 total) by unit CpDR mouth 3 capsule (three) times daily with meals. calcium 2022- No 2{tbl} Q.[id number] Take [address] [facility] carbonate-v 5-06 05-06 [id number] tablets by [facility] itamin D3 00:00: 23:59 3D mouth 3 Medi doreen (OSCAL-D) 00 :00 (three) Center 500 times mg(1,250mg) daily. -200 unit per tablet pancrelipas 2022- No [id number]{ Take [address] [facility] e, 5- 05-06 lipase} capsules [facility]-Prot-[facility] 00:00: 23:59 (72,000 Me dical yl, (CREON) 00 :00 units of Cent er 24,000-76,0 lipase 00 -120,000 total) by unit CpDR mouth 3 capsule (three) times daily with meals. calcium 2022- No 2{tbl} Q.[id number] Take [address] [facility] carbonate-v 5-06 05-06 [id number] tablets by [facility] itamin D3 00:00: 23:59 3D mouth 3 Medi doreen (OSCAL-D) 00 :00 (three) Center 500 times mg(1,250mg) daily. -200 unit per tablet pancrelipas 2022- No [id number]{ Take [address] [facility], 5- 05-06 lipase} capsules [facility]-Prot-Am 00:00: 23:59 (72,000 Me dical yl, (CREON) 00 :00 units of Cent er 24,000-76,0 lipase 00 -120,000 total) by unit CpDR mouth 3 capsule (three) times daily with meals. calcium 2022- No 2{tbl} Q.[id number] Take [address] [facility] carbonate-v 5- 05-06 [id number] tablets by [facility] itamin D3 00:00: 23:59 3D mouth 3 Medi doreen (OSCAL-D) 00 :00 (three) Center 500 times mg(1,250mg) daily. -200 unit per tablet pancrelipas 2022- No [id number]{ Take [address] [facility], 5- 05-06 lipase} capsules [facility]-Prot-[facility] 00:00: 23:59 (72,000 Me dical yl, (CREON) 00 :00 units of Cent er 24,000-76,0 lipase 00 -120,000 total) by unit CpDR mouth 3 capsule (three) times daily with meals. calcium 2022- No 2{tbl} Q.[id number] Take [address] [facility] carbonate-v 5- 05-06 [id number] tablets by [facility] itamin D3 00:00: 23:59 3D mouth 3 Medi doreen (OSCAL-D) 00 :00 (three) Center 500 times mg(1,250mg) daily. -200 unit per tablet pancrelipas 2022- No [id number]{ Take [address] [facility], 5-06 05-06 lipase} capsules [facility]-Prot-[facility] 00:00: 23:59 (72,000 Me dical yl, (CREON) 00 :00 units of Cent er 24,000-76,0 lipase 00 -120,000 total) by unit CpDR mouth 3 capsule (three) times daily with meals. calcium 2022- No 2{tbl} Q.[id number] Take [address] [facility] carbonate-v 5-06 05-06 [id number] tablets by [facility] itamin D3 00:00: 23:59 3D mouth 3 Medi doreen (OSCAL-D) 00 :00 (three) Center 500 times mg(1,250mg) daily. -200 unit per tablet pancrelipas 2022- No [id number]{ Take [address] [facility], 09-22- lipase} capsules [facility]-Prot-[facility] 00:00: 23:59 (72,000 Me dical yl, (CREON) 00 :00 units of Cent er 24,000-76,0 lipase 00 -120,000 total) by unit CpDR mouth 3 capsule (three) times daily with meals. calcium 2022- No 2{tbl} Q.[id number] Take [address] [facility] carbonate-v 09-22- [id number] tablets by [facility] itamin D3 00:00: 23:59 3D mouth 3 Medi doreen (OSCAL-D) 00 :00 (three) Center 500 times mg(1,250mg) daily. -200 unit per tablet pancrelipas 2022- No [id number]{ Take [address] [facility], 09-22- lipase} [...] for up to 360 days. gabapentin 2021-0 2021- No 400mg Q.[id number] Take [address] [facility] (NEURONTIN) 09-22- [id number] [facility] 400 MG 00:00: 00:00 3D [...] (two) times daily. gabapentin 2021-2021- No 400mg Q.[id number] Take [address] [facility] (NEURONTIN) 09-22- [id number] [facility] 400 MG 00:00: 00:00 3D (400 mg Medical capsule 00 :00 total) by Center mouth 3 (three) times daily. hydrOXYchlo 2021-0 2- No 200mg Q.5D Take 1 [facility] [...] times daily. gabapentin 2021-0 2021- No 400mg Q.[id number] Take [address] [facility] (NEURONTIN) 09-22 [id number] [facility] 400 MG 00:00: 00:00 3D [...] times daily. gabapentin 2021-0 2022- No 400mg Q.[id number] Take [address] [facility] (NEURONTIN) 09-22 [id number] capsule [facility] 400 MG 00:00: 00:00 3D [...] times daily. gabapentin 2022-0 2022- No 400mg Q.[id number] Take [address] [facility] (NEURONTIN) 09-22 10-24 [id number] [facility] 400 MG 00:00: 00:00 3D (400 mg Medical capsule 00 :00 total) by Center mouth 3 (three) times daily. hydrOXYchlo 2022-0 2022- No 200mg Q.5D Take [address] roQUINE 5-06 10-24 tablet [facility] (PLAQUENIL) 00:00: 00:00 (200 mg Me dical 200 mg 00 :00 total) by Center tablet mouth 2 (two) times daily. metoprolol 2022-0 2022- No 25mg Q.5D Take [address] [facility] tartrate 5- 10-24 tablet (25 [facility] (LOPRESSOR) 00:00: 00:00 mg total) Medical 25 MG 00 :00 by mouth 2 Center tablet (two) times daily. gabapentin 2022-0 2022- No 400mg Q.[id number] Take [address] [facility] (NEURONTIN) 09-22 10-24 [id number] [facility] 400 MG 00:00: 00:00 3D [...] times daily. gabapentin 2021-0 2022- No 400mg Q.[id number] Take [address] [facility] (NEURONTIN) 09-22 10 [id number] capsule [facility] 400 MG 00:00: 00:00 3D [...] times daily. gabapentin 2022-0 2022- No 400mg Q.[id number] Take [address] [facility] (NEURONTIN) 5-10 27-24 [id number] capsule [facility] 400 MG 00:00: 00:00 3D [...] times daily. gabapentin 2021-0 2022- No 400mg Q.[id number] Take [address] [facility] (NEURONTIN) 09-22- [id number] [facility] 400 MG 00:00: 00:00 3D [...] times daily. gabapentin 2022-0 2022- No 400mg [id number] Take [address] [facility] (NEURONTIN) 5- 10-24 [id number] [facility] 400 MG 00:00: 00:00 3D [...] Q.5D Take [address] [facility] tartrate 09-22 10-24 tablet (25 [facility] (LOPRESSOR) 00:00: [...] 2021- No Q.5D Apply [facility] e 09-2225 [...] 1{packe Q.5D Take [address] [facility] ine 09-22-25 t} packet by [facility] (QUESTRAN) 00:00: 00:00 [...] 2021- No Q.5D Apply [facility] e 09-2225 [...] 2021- No Q.5D Apply [facility] e 09-2225 [...] 2021- No Q.5D Apply [facility] e 09-2225 [...] 2021- No Q.5D Apply [facility] e 09-2225 [...] [facility] 09-22 t} packet by [facility] ([facility] [employer]) 00:00: 00:00 mouth 2 Med ical 4 gram PwPk 00 :00 (two) Center packet times daily. clotrimazol 2021-2021- No Q.5D Apply [facility] 09-22 topically [facility] (LOTRIMIN) 00:00: 00:00 2 (two) Med ical 1 % cream 00 :00 times Center daily. cholestyram 2021- No 1{packe Q.5D Take [address] [facility] ine 09-22 t} packet by [facility] ([employer] [employer]ementals[employer]AN) 00:00: 00:00 mouth 2 Med ical 4 gram PwPk 00 :00 (two) Center packet times daily. clotrimazol 2021-2021- No Q.5D Apply [facility] 09-22 [facility] (LOTRIMIN) 00:00: 00:00 2 (two) Med ical 1 % cream 00 :00 times Center daily. morphine 2021-2021- No [facility]mg [facility] [...] days. Max Daily Amount: 45 mg morphine 2021- No 15mg Take [address] [facility] (MS CONTIN) 5-06 06-05 tablet (15 [facility] 15 MG 12 hr 00:00: 23:59 mg total) Medical tablet 00 :00 by mouth Center every 8 (eight) hours for 30 days. Max Daily Amount: 45 mg morphine 2022-0 2022- No 15mg Take [address] [facility] (MS CONTIN) 5-10 23-05 tablet (15 [facility] 15 MG 12 hr 00:00: 23:59 mg total) Medical tablet 00 :00 by mouth Center every 8 (eight) hours for 30 days. Max Daily Amount: 45 mg morphine 2022-0 2022- No 15mg Take [address] [facility] (MS CONTIN) 5-10 23-05 tablet (15 [facility] 15 MG 12 [...] 15mg Take [address] [facility] (MS CONTIN) -10 23-05 tablet (15 [facility] 15 MG 12 hr 00:00: 23:59 mg total) Medical tablet 00 :00 by mouth Center every 8 (eight) hours for 30 days. Max Daily Amount: 45 mg morphine 2022-0 2022- No 15mg Take [address] [facility] (MS CONTIN) 5- 06-05 tablet (15 [facility] 15 MG 12 hr 00:00: 23:59 mg total) Medical tablet 00 :00 by mouth Center every 8 (eight) hours for 30 days. Max Daily Amount: 45 mg morphine 2021- No 15mg Take 1 [...] injection 00 :00 Center loperamide No 4mg [id number] Take [address] [facility] (IMODIUM) 2 09-22 [id number] [facility] capsule 00:00: 00:00 3D [...] 00:00: 00:00 Medic al injection 00 :00 [place] loperamide 2021- No 4mg [id number] Take [address] [facility] (IM[facility]) 2 09-22 [id number] [facility]: 00:00 3D [...] 00:00: 00:00 Medic al injection 00 :00 [place] loperamide 2021- No 4mg [id number] Take [address] [facility] ([facility]) 2 09-22 [id number] [facility] 00:00: 00:00 3D [...] 00:00: 00:00 Medic al injection 00 :00 [place] loperamide 2021- No 4mg [id number] Take [address] [facility] (IM[facility]) 2 09-22 [id number] [facility] 00:00: 00:00 3D [...] times daily for 10 days. insulin NPH No Use as [facility] (Hum[facility] N) 09-22 directed. [facility] 100 unit/mL 00:00: 00:00 Medic al injection 00 :00 [facility] loperamide 2021- No 4mg Q.[id number] Take [address] [facility] ([facility]) 2 09-22 [id number] [facility] 00:00: 00:00 3D [...] 00 :00 [facility] loperamide 2021- No 4mg Q.[id number] Take [address] [facility] ([facility]) 2 09-22 [id number] [facility] 00:00: 00:00 3D [...] injection 00 :00 Center loperamide No 4mg Q.[id number] Take [address] [facility] ([facility]) 2 09-22 [id number] [facility] 00:00: 00:00 3D [...] 00 :00 [facility] loperamide 2021- No 4mg [id number] Take [address] [facility] ([facility]) 2 09-22 [id number] [facility] 00:00: 00:00 3D [...] 00 :00 [facility] loperamide 2021- No 4mg Q.[id number] Take [address] [facility] ([facility]) 2 09-22 [id number] [facility] 00:00: 00:00 3D [...] 00:00: 00:00 Medic al injection 00 :00 [place] loperamide 2021- No 4mg Q.[id number] Take [address] [facility] ([facility]) 2 09-22 [id number] [facility] 00:00: 00:00 3D [...] 00 :00 Center loperamide 2021- No 4mg Q.[id number] Take [address] [facility] ([facility]) 2 09-22 [id number] [facility] 00:00: 00:00 3D [...] tablet (four) times daily for 10 days. Bactrim DS Bactrim DS No 1 Q1D Bactrim DS [facility] 800 mg-160 800 mg-160 800 mg-160 Medical mg tablet mg tablet mg tablet Take 1 Take 1 Take 1 tablet tablet tablet every day every day every day by oral by oral by oral route for route for route for 21 days. 21 days. 21 days. citalopram citalopram No .5 Q1D citalopram [facility] 10 mg 10 mg 10 mg [facility] tablet Take tablet Take tablet 0.5 tablets 0.5 tablets Take 0.5 every day every day tablets by oral by oral every day route. route. by oral route. Creon Creon No 1capsul Q1D Creon [facility] 24,000-76,0 24,000-76,0 e(s) 24,000-76, Medical 00-120,000 00-120,000 000-120,00 unit unit 0 unit capsule,del capsule,del capsule,de ayed ayed layed release release release Take 1 Take 1 Take 1 capsule capsule capsule every day every day every day by oral by oral by oral route. route. route. hydroxychlo hydroxychlo No 1 BID hydroxychl [facility] roquine 200 roquine 200 oroquine Medical mg tablet mg tablet 200 mg Take 1 Take 1 tablet tablet tablet Take 1 twice a day twice a day tablet by oral by oral twice a route in route in day by the evening the evening oral route for 30 for 30 in the days. days. evening for 30 days. metformin metformin No 1 Q1D metformin [facility] ER 500 mg ER 500 mg ER 500 mg Medical tablet,exte tablet,exte tablet,ext nded nded ended release 24 release 24 release 24 hr Take 1 hr Take 1 hr Take 1 tablet tablet tablet every day every day every day by oral by oral by oral route for route for route for 30 days. 30 days. 30 days. metoprolol metoprolol No 1 BID metoprolol [facility] tartrate 25 tartrate 25 tartrate [facility] mg tablet mg tablet 25 mg Take 1 Take 1 tablet tablet tablet Take 1 twice a day twice a day tablet by oral by oral twice a route for route for day by 30 days. 30 days. oral route for 30 days. oxycodone oxycodone No 1 Q6H oxycodone [facility] 10 mg 10 mg 10 mg [facility] tablet Take tablet Take tablet 1 tablet 1 tablet Take 1 every 6 every 6 tablet hours by hours by every 6 oral route oral route hours by as needed as needed oral route for 10 for 10 as needed days. days. for 10 days. prednisone prednisone No prednisone [facility] 5 mg tablet 5 mg tablet 5 mg M edical on taper on taper tablet on down down taper down dosing- 5 dosing- 5 dosing- 5 tablets tablets tablets once a day once a day once a day x5 days. 4 x5 days. 4 x5 days. 4 tablets tablets tablets once a day once a day once a day x 5 days3 x 5 days3 x 5 days3 tablets tablets tablets once a day once a day once a day x 5 days2 x 5 days2 x 5 days2 tablets tablets tablets once a day once a day once a day x 5 days1 x 5 days1 x 5 days1 tablet once tablet once tablet a day x 5 a day x 5 once a day days. 0.5 days. 0.5 x 5 days. tablets tablets 0.5 once a day once a day tablets x 5 days. x 5 days. once a day x 5 days. risperidone risperidone No 1 Q1D risperidon [facility] 0.5 mg 0.5 mg e 0.5 mg Medical tablet Take tablet Take tablet 1 tablet 1 tablet Take 1 every day every day tablet by oral by oral every day route at route at by oral bedtime for bedtime for route at 30 days. 30 days. bedtime for 30 days. sertraline sertraline No 1 Q1D sertraline [facility] 50 mg 50 mg 50 mg [facility] tablet Take tablet Take tablet 1 tablet 1 tablet Take 1 every day every day tablet by oral by oral every day route for route for by oral 30 days. 30 days. route for 30 days. trazodone trazodone No 1 Q1D trazodone [facility] 150 mg 150 mg 150 mg [facility] tablet Take tablet Take tablet 1 tablet 1 tablet Take 1 every day every day tablet by oral by oral every day route at route at by oral dinner for dinner for route at 30 days. 30 days. dinner for 30 days. Ventolin Ventolin No 2puff(s Q6H Ventolin [facility] HFA 90 HFA 90 ) HFA 90 Medical mcg/actuati mcg/actuati mcg/actuat on aerosol on aerosol ion inhaler inhaler aerosol Inhale 2 Inhale 2 inhaler puffs every puffs every Inhale 2 6 hours by 6 hours by puffs inhalation inhalation every 6 route as route as hours by needed for needed for inhalation 30 days. 30 days. route as needed for 30 days. Bactrim DS Bactrim DS No 1 Q1D Bactrim DS [facility] 800 mg-160 800 mg-160 800 mg-160 Medical mg tablet mg tablet mg tablet Take 1 Take 1 Take 1 tablet tablet tablet every day every day every day by oral by oral by oral route for route for route for 21 days. 21 days. 21 days. citalopram citalopram No .5 Q1D citalopram [facility] 10 mg 10 mg 10 mg [facility] tablet Take tablet Take tablet 0.5 tablets 0.5 tablets Take 0.5 every day every day tablets by oral by oral every day route. route. by oral route. Creon Creon No 1capsul Q1D Creon [facility] 24,000-76,0 24,000-76,0 e(s) 24,000-76, Medical 00-120,000 00-120,000 000-120,00 unit unit 0 unit capsule,del capsule,del capsule,de ayed ayed layed release release release Take 1 Take 1 Take 1 capsule capsule capsule every day every day every day by oral by oral by oral route. route. route. hydroxychlo hydroxychlo No 1 BID hydroxychl [facility] roquine 200 roquine 200 oroquine Medical mg tablet mg tablet 200 mg Take 1 Take 1 tablet tablet tablet Take 1 twice a day twice a day tablet by oral by oral twice a route in route in day by the evening the evening oral route for 30 for 30 in the days. days. evening for 30 days. metformin metformin No 1 Q1D metformin [facility] ER 500 mg ER 500 mg ER 500 mg [facility] tablet,exte tablet,exte tablet,ext nded nded ended release 24 release 24 release 24 hr Take 1 hr Take 1 hr Take 1 tablet tablet tablet every day every day every day by oral by oral by oral route for route for route for 30 days. 30 days. 30 days. metoprolol metoprolol No 1 BID metoprolol [facility] tartrate 25 tartrate 25 tartrate [facility] mg tablet mg tablet 25 mg Take 1 Take 1 tablet tablet tablet Take 1 twice a day twice a day tablet by oral by oral twice a route for route for day by 30 days. 30 days. oral route for 30 days. oxycodone oxycodone No 1 Q6H oxycodone [facility] 10 mg 10 mg 10 mg [facility] tablet Take tablet Take tablet 1 tablet 1 tablet Take 1 every 6 every 6 tablet hours by hours by every 6 oral route oral route hours by as needed. as needed. oral route as needed. prednisone prednisone No prednisone [facility] 5 mg tablet 5 mg tablet 5 mg M edical on taper on taper tablet on down down taper down dosing- 5 dosing- 5 dosing- 5 tablets tablets tablets once a day once a day once a day x5 days. 4 x5 days. 4 x5 days. 4 tablets tablets tablets once a day once a day once a day x 5 days3 x 5 days3 x 5 days3 tablets tablets tablets once a day once a day once a day x 5 days2 x 5 days2 x 5 days2 tablets tablets tablets once a day once a day once a day x 5 days1 x 5 days1 x 5 days1 tablet once tablet once tablet a day x 5 a day x 5 once a day days. 0.5 days. 0.5 x 5 days. tablets tablets 0.5 once a day once a day tablets x 5 days. x 5 days. once a day x 5 days. risperidone risperidone No 1 Q1D risperidon [facility] 0.5 mg 0.5 mg e 0.5 mg Medical tablet Take tablet Take tablet 1 tablet 1 tablet Take 1 every day every day tablet by oral by oral every day route at route at by oral bedtime for bedtime for route at 30 days. 30 days. bedtime for 30 days. sertraline sertraline No 1 Q1D sertraline [facility] 50 mg 50 mg 50 mg [facility] tablet Take tablet Take tablet 1 tablet 1 tablet Take 1 every day every day tablet by oral by oral every day route for route for by oral 30 days. 30 days. route for 30 days. trazodone trazodone No 1 Q1D trazodone [facility] 150 mg 150 mg 150 mg [facility] tablet Take tablet Take tablet 1 tablet 1 tablet Take 1 every day every day tablet by oral by oral every day route at route at by oral dinner for dinner for route at 30 days. 30 days. dinner for 30 days. Ventolin Ventolin No 2puff(s Q6H Ventolin [facility] HFA 90 HFA 90 ) HFA 90 Medical mcg/actuati mcg/actuati mcg/actuat on aerosol on aerosol ion inhaler inhaler aerosol Inhale 2 Inhale 2 inhaler puffs every puffs every Inhale 2 6 hours by 6 hours by puffs inhalation inhalation every 6 route as route as hours by needed for needed for inhalation 30 days. 30 days. route as needed for 30 days. Vital Signs Vital Name Observation Time Observation Value Comments Source BP Diastolic 2022-09-11 00:00:00 74 mm[Hg] [facility] Height 2022-09-11 00:00:00 68 [in_i] [facility] BMI (Body Mass 2022-09-11 00:00:00 35 kg/m2 [facility] Medical Index) BP Systolic 2022-09-11 00:00:00 142 mm[Hg] [facility] Body Weight 2022-09-11 00:00:00 3686 [oz_av] [facility] BP Diastolic 2022-09-04 00:00:00 92 mm[Hg] [facility] Height 2022-09-04 00:00:00 68 [in_i] [facility] BMI (Body Mass 2022-09-04 00:00:00 35 kg/m2 [facility] Index) BP Systolic 2022-09-04 00:00:00 146 mm[Hg] [facility] Body Weight 2022-09-04 00:00:00 3686 [oz_av] [facility] HEIGHT 2022-05-26 13:38:00 172.7 cm WEIGHT 2022-05-26 13:38:00 99.791 kg HEIGHT 2022-05-26 02:32:00 172.7 cm HEIGHT 2022-05-26 13:38:00 172.7 cm WEIGHT 2022-05-26 13:38:00 99.791 kg HEIGHT 2022-05-26 02:32:00 172.7 cm Systolic blood 2022-03-18 21:00:00 139 mm[Hg] [facility] Diastolic blood 2022-03-18 21:00:00 91 mm[Hg] [facility] Heart rate 2022-03-18 21:00:00 84 /min [facility] Body temperature 2022-03-18 21:00:00 37.06 Lori [facility] 2022-03-18 21:00:00 18 /min [facility] O[facility] saturation in 2022-03-18 21:00:00 97 /min [facility] Arterial blood by [facility] Pulse oximetry Branch Body height 2022-03-16 07:07:00 172.7 cm [facility] Body weight 2022-03-16 07:07:00 [facility]791 [facility] 2022-03-16 07:07:00 33.46 kg/m2 [facility] Systolic blood 2022-03-14 23:00:00 176 mm[Hg] [facility] Diastolic blood 2022-03-14 23:00:00 124 mm[Hg] [facility] Heart rate 2022-03-14 23:00:00 108 /min [facility] Oxygen saturation in 2022-03-14 23:00:00 99 /min [facility] Arterial blood by [facility] Pulse oximetry Branch Respiratory rate 2022-03-14 22:00:00 20 /min [facility] Body temperature 2022-03-14 18:22:00 37.5 Lori [facility] Body height 2022-03-14 18:22:00 172.7 cm [facility] Body weight 2022-03-14 18:22:00 99.791 kg [facility] BMI 2022-03-14 18:22:00 33.45 kg/m2 [facility] HEIGHT 2022-03-08 19:00:00 172.7 cm [...] kg Systolic blood 2022-06-05 12:04:00 119 mm[Hg] [facility] Diastolic blood 2022-06-05 12:04:00 60 mm[Hg] [facility] Heart rate 2022-06-05 12:04:00 88 /min [facility] Body temperature 2022-06-05 12:04:00 36.56 Lori [facility] Respiratory rate 2022-06-05 12:04:00 18 /min [facility] Oxygen saturation in 2022-06-05 12:04:00 96 /min [facility] Arterial blood by Medical Ce nter Pulse oximetry Body height 2022-05-26 13:38:00 172.7 cm [facility] Body weight 2022-05-26 13:38:00 99.791 kg [facility] BMI 2022-05-26 13:38:00 33.45 kg/m2 [facility] Systolic blood 2022-03-12 11:02:00 175 mm[Hg] [facility] Diastolic blood 2022-03-12 11:02:00 120 mm[Hg] [facility] Heart rate 2022-03-12 11:02:00 75 /min [facility] Body temperature 2022-03-12 11:02:00 36.78 Lori [facility] Respiratory rate 2022-03-12 11:02:00 18 /min [facility] Oxygen saturation in 2022-03-12 11:02:00 97 /min [facility] Arterial blood by Medical Ce [facility]ter Pulse oximetry Body height 2022-03-08 19:00:00 172.7 cm [facility] Body weight 2022-03-08 19:00:00 99.428 kg [facility] BMI 2022-03-08 19:00:00 33.33 kg/m2 [facility] Systolic blood 2021-12-25 15:25:00 123 mm[Hg] [facility] Diastolic blood 2021-12-25 15:25:00 76 mm[Hg] [facility] Heart rate 2021-12-25 15:25:00 103 /min [facility] Body temperature 2021-12-25 15:25:00 36.78 Lori [facility] Respiratory rate 2021-12-25 15:25:00 18 /min [facility] Oxygen saturation in 2021-12-25 15:25:00 95 /min [facility] Arterial blood by Medical Ce [facility]ter Pulse oximetry Body height 2021-12-07 12:30:00 172.7 cm [facility] Body weight 2021-12-07 12:30:00 95.255 kg [facility] BMI 2021-12-07 12:30:00 31.93 kg/m2 [facility] Procedures Procedure Date / Time Performing Clinician Source Performed REFERRAL- REQUEST/RESPONSE 2022-11-28 [facility] POCT-GLUCOSE METER 2022-06-[address] [facility] 11:53:00 [facility] POCT-GLUCOSE METER 2022-06-[address] [facility] 09:21:00 [facility] MR ABDOMEN WITH & WITHOUT IV 2022-06-05 Kayla Thompson An n [facility] 08:30:00 [facility] BASIC METABOLIC PANEL 2022-06-05 Arif, Melissa [facility] St Jody es 04:04:00 [facility] CBC W/PLT COUNT & AUTO 2022-06-05 [facility] DIFFER[facility] 04:04:00 [facility] MAGNESIUM 2022-06-05 Arif, Miker [facility] 04:04:00 [facility] CBC W/PLT COUNT & AUTO 2022-06-05 [facility] St Jessica kes DIFFERENTIAL 04:04:00 Medical Center POCT-GLUCOSE METER 2022-06-[address] [facility] 21:21:00 [facility] Center POCT-GLUCOSE METER 2022-06-[address] [facility] 17:02:00 [facility] Center POCT-GLUCOSE METER 2022-06-[address] [facility] 11:46:00 [facility] Center POCT-GLUCOSE METER 2022-06-[address] [facility] 08:09:00 [facility] Center BASIC METABOLIC PANEL 2022-06-04 Arif, Miker [facility] 05:19:00 [facility] Center CBC W/PLT COUNT & AUTO 2022-06-04 Arif, Miker [facility] DIFFERENTIAL 05:19:00 Medical Center MAGNESIUM 2022-06-04 Arif, Miker [facility] 05:19:00 [facility] Center CBC W/PLT COUNT & AUTO 2022-06-04 Arif, Melissa CID [facility] kes DIFFERENTIAL 05:19:00 [facility] Center POCT-GLUCOSE METER 2022-06-[address] [facility] 22:31:00 [facility] Center POCT-GLUCOSE METER 2022-06-[address] [facility] 16:39:00 [facility] Center POCT-GLUCOSE METER 2022-06-[address] [facility] 11:32:00 [facility] Center POCT-GLUCOSE METER 2022-06-[address] [facility] 07:47:00 [facility] Center BASIC METABOLIC PANEL 2022-06-03 Arif, Miker [facility] 03:48:00 [facility] Center CBC W/PLT COUNT & AUTO 2022-06-03 Arif, Miker [facility] DIFFERENTIAL 03:48:00 [facility] Center MAGNESIUM 2022-06-03 Arif, Sahar [facility] 03:48:00 [facility] CBC W/PLT COUNT & AUTO 2022-06-03 Arif, Miekr [facility] DIFFERENTIAL 03:48:00 [facility] Center POCT-GLUCOSE METER 2022-06-02 Jay, Kayla Rooney [facility] 21:17:00 [facility] Center POCT-GLUCOSE METER 2022-06-02 Rachel[address]andana Rooney [facility] 16:48:00 [facility] Center POCT-GLUCOSE METER 2022-06-[address] [facility] 11:30:00 [facility] POCT-GLUCOSE METER 2022-06-[address] [facility] 07:07:00 [facility] SARS-COV2/RT-PCR ([facility] & REF 2022-06-[address] [facility]) 06:10:00 [facility] POCT-GLUCOSE METER 2022-06-[address] [facility] 02:11:00 [facility] BASIC METABOLIC PANEL 2022-06-02 Arif, Sahar [facility] 02:09:00 [facility] Center CBC W/PLT COUNT & AUTO 2022-06-02 Arif, Miker [facility] DIFFERENTIAL 02:09:00 [facility] MAGNESIUM 2022-06-02 Arif, Sahar [facility] 02:09:00 [facility] Center CBC W/PLT COUNT & AUTO 2022-06-02 Arif, Miker [facility] DIFFERENTIAL 02:09:00 [facility] Center POCT-GLUCOSE METER 2022-06-[address] [facility] 11:48:[address] [facility] [address] ABDOMEN/PELVIS WITH IV 2022-06-[address] [facility] 11:12:00 [facility] Center POCT-GLUCOSE METER 2022-06-01 Jay, Kaylavandana Rooney [facility] 07:44:00 [facility] BASIC METABOLIC PANEL 2022-06-01 Arif, Sahar [facility] 03:52:00 [facility] Center CBC W/PLT COUNT & AUTO 2022-06-01 Arif, Sahar [facility] DIFFERENTIAL 03:52:00 [facility] Center MAGNESIUM 2022-06-01 Arif, Sahar [facility] 03:52:00 [facility] Center CBC W/PLT COUNT & AUTO 2022-06-01 Arif, Miker [facility] DIFFERENTIAL 03:52:00 [facility] Center POCT-GLUCOSE METER 2022-05-31 Jay Kayla Nevin [facility] 22:26:00 [facility] Center POCT-GLUCOSE METER 2022-05-[address] [facility] 16:11:00 [facility] Center POCT-GLUCOSE METER 2022-05-[address] [facility] [facility] 11:22:00 [facility] Center POCT-GLUCOSE METER 2022-05-[address] [facility] 07:05:00 [facility] Center BASIC METABOLIC PANEL 2022-05-31 Arif, Melissa [facility]ID [facility] 04:59:00 [facility] Center CBC W/PLT COUNT & AUTO 2022-05-31 Arif, Miker [facility] DIFFERENTIAL 04:59:00 [facility] Center MAGNESIUM 2022-05-31 Arif, Sahar [facility] 04:59:00 [facility] Center CBC W/PLT COUNT & AUTO 2022-05-31 Arif, Melissa [facility]ID [facility] DIFFERENTIAL 04:59:00 [facility] CREATININE, RANDOM URINE 2022-05-31 [facility] 01:35:00 [facility] Center POCT-GLUCOSE METER 2022-05-30 Jay, Kayla Rooney [facility] 20:42:00 [facility] Center POCT-GLUCOSE METER 2022-05-30 Jay, Kayla Rooney [facility] 15:52:00 [facility] Center POCT-GLUCOSE METER 2022-05-[address] [facility] [facility] 10:52:00 [facility] Center POCT-GLUCOSE METER 2022-05-30 Jay, Kayla Rooney [facility] 07:51:00 [facility] Center BASIC METABOLIC PANEL 2022-05-30 Arijosie, Melissa [facility]ID [facility] 03:44:00 [facility] Center CBC W/PLT COUNT & AUTO 2022-05-30 Arif, Miker [facility] DIFFERENTIAL 03:44:00 [facility] Center MAGNESIUM 2022-05-30 Arif, Miker [facility] 03:44:00 [facility] CBC W/PLT COUNT & AUTO 2022-05-30 Arif, Miker [facility] DIFFERENTIAL 03:44:00 [facility] Center POCT-GLUCOSE METER 2022-05-29 Arif, Sahar [facility] 22:32:00 [facility] Center PROTEIN, RANDOM URINE 2022-05-29 Arif, Miker [facility] 17:34:00 [facility] BASIC METABOLIC PANEL 2022-05-29 Arif, Sahar [facility] 04:37:00 [facility] CBC W/PLT COUNT & AUTO 2022-05-29 Arif, Sahar [facility] DIFFERENTIAL 04:37:00 [facility] Center MAGNESIUM 2022-05-29 Arif, Sahar [facility] 04:37:00 [facility] Center T SPOT TB 2022-05-29 Arif, Sahar [facility] 04:37:00 [facility] CBC W/PLT COUNT & AUTO 2022-05-29 Arif, Sahar [facility] DIFFERENTIAL 04:37:00 [facility] Center POCT-GLUCOSE METER 2022-05-28 Arif, Sahar [facility] 22:30:00 [facility] Center HEMOGLOBIN A1C 2022-05-28 Arif, Sahar [facility] 04:29:00 [facility] Center BASIC METABOLIC PANEL 2022-05-28 Arif, Sahar [...] [facility] 06:[facility]:00 [facility] PHOSPHORUS 2022-05-[address] [facility] 03:31:00 [facility] Center BASIC METABOLIC PANEL 2022-05-27 Arif, Sahar [facility] 03:31:00 [facility] CBC W/PLT COUNT & AUTO 2022-05-27 Arif, Sahar [facility] DIFFERENTIAL 03:31:00 [facility] Center MAGNESIUM 2022-05-27 Arif, Melissa [facility] 03:31:00 [facility] Center CBC W/PLT COUNT & AUTO 2022-05-27 Arif, Melissa [facility] DIFFERENTIAL 03:31:00 [facility] POCT-GLUCOSE METER 2022-05-26 Arif, Sahar [facility] 21:22:00 [facility] POCT-GLUCOSE METER 2022-05-26 Arif, Miker [facility] 16:23:00 [facility] US ABDOMEN LIMITED 2022-05-26 Vernell Gonzalez [facility] 16:02:00 [facility] POCT-GLUCOSE METER 2022-05-26 Arif[facility] Melissa [facility] 12:43:00 [facility] SARS-COV2/RT-PCR ([facility] & REF 2022-05-[address] [facility]) 10:24:00 [facility] URINALYSIS W/ MICROSCOPIC 2022-05-26 Vernell Gonzalez [facility] 10:21:00 [facility] COMPREHENSIVE METABOLIC 2022-05-26 Vernell Gonzalez CHI PANEL 10:21:00 [facility] CBC W/PLT COUNT & AUTO 2022-05-26 Vernell Gonzalez [facility] DIFFERENTIAL 10:21:00 [facility] CBC W/PLT COUNT & AUTO 2022-05-26 [facility] 10:21:00 [facility] COMPLEMENT COMPONENT C4 2022-05-[address] [facility] 05:45:00 [facility] DOUBLE-STRANDED DNA (DSDNA) 2022-05-26 Bharti, Arnulfo [facility] ANTIBODY 05:45:00 [facility] ANTI-NUCLEAR ANTIBODY (STU) 2022-05-26 Hay, Arnulfo [facility] 05:45:00 [facility] FERRITIN 2022-05-26 Bharti, Arnulfo [facility] 05:45:00 [facility] IRON, TIBC, % SAT. (WITHOUT 2022-05-[address] [facility]) 05:45:00 [facility] ANTI-DNA TITER 2022-05-26 Hay, Arnulfo [facility] 05:45:00 [facility] STU TITER AND PATTERN 2022-05-[address] [facility] 05:45:00 [facility] MAGNESIUM 2022-03-18 [facility] [place] BASIC METABOLIC PANEL (NA, 2022-03-18 [facility], CO2, GLUCOSE, BUN, 11:41:00 Medica l Branch CREATININE, CA) CBC WITH DIFF 2022-03-18 Negra [facility] 11:41:[address] [facility] [address] HEAD WO CONTRAST 2022-03-17 Ree [facility] 13:50:56 [facility] MAGNESIUM 2022-03-17 Darrel [facility] 10:39:00 [facility] HEPATIC FUNCTION PANEL 2022-03-17 [id number] (ALB,T.PRO,BILI 10:39:00 [facility] T,BU/BC,ALT,AST,ALK PHOS) BASIC METABOLIC PANEL (NA, 2022-03-17 Darrel [facility] [facility] K, CL, CO2, GLUCOSE, BUN, 10:39:00 [facility] CREATININE, [place]) CBC WITH DIFF 2022-03-17 [facility] xa 10:39:00 [facility] PROTHROMBIN TIME / INR 2022-03-16 [facility] 22[facility]57[facility]00 [facility] LIPASE 2022-03-16 Ree [facility] xas 11:00:00 [facility] MAGNESIUM 2022-03-16 [facility] 11:00:00 [facility] BASIC METABOLIC PANEL (NA, 2022-03-16 Ree [facility] K, CL, CO2, GLUCOSE, BUN, 11:00:00 [facility] CREATININE, [place]) CBC WITH DIFF 2022-03-16 [facility] [place] 11:00:00 [facility] MRSA / MSSA SCREEN BY PCR, 2022-03-16 Ree [facility] NARES 07:32:00 [facility] HOSPITAL ADMISSION 2022-03-16 Doctor Unassigned, [facility] 05:01:00 [facility] LACTIC ACID WHOLE BLOOD 2022-03-14 [facility] 22:10[facility]00 [facility] URINALYSIS 2022-03-14 [facility] xas 20:43:[address] ABDOMEN PELVIS W CONTRAST 2022-03-14 Singer [facility] [address] 20:28:55 [facility] LACTIC ACID WHOLE BLOOD 2022-03-14 [facility] 19:56:00 [facility] LIPASE 2022-03-14 [facility] xa 19:55:00 [facility] COMP. METABOLIC PANEL 2022-03-14 [facility] ([id number]) 19:55:00 [facility] CBC WITH DIFF 2022-03-14 [facility] xa 19:55:00 [facility] NOTICE OF PRIVACY PRACTICES 2022-03-14 Doctor Unassigned, [facility] 18:09:38 [facility] CBC (HEMOGRAM ONLY) 2022-03-12 Alex Hern[facility]dez [facility] 05:05:00 [facility] BASIC METABOLIC PANEL 2022-03-12 Alex Hernández [facility] 05:05:00 [facility] CT ABDOMEN/PELVIS WITH IV 2022-03-11 Alex Hern[facility]dez [facility] CONTRAST 00:26:00 [facility] CBC W/PLT COUNT & AUTO 2022-03-10 Abiodun, Ahmed Nasif [facility] DIFFERENTIAL 04:22:00 [facility] BASIC METABOLIC PANEL 2022-03-10 Abiodun, Ahmed Nasif [facility] 04:22:00 [facility] CBC W/PLT COUNT & AUTO 2022-03-10 Abiodun, Ahmed Nasif [facility] DIFFERENTIAL 04:22:00 [facility] XR CHEST 1 VIEW PORTABLE / 2022-03-06 AbiodunSilvio Nasif [facility] B[facility] 15:10:00 [facility] CT ABDOMEN/PELVIS WITH IV 2022-03-[address] [facility] CONTRAST 08:41:00 [facility] FL ASPIRATION OR INJECTION 2022-02-27 [facility] Wisdom [facility] 15:05:00 [facility] MR LOWER EXTREMITY JOINT 2022-02-[address] [facility] ONLY WITHOUT IV CONTRAST 14:00:00 [facility] LEFT COMPREHENSIVE METABOLIC 2022-02-[address] [facility] PANEL 22:25:00 [facility] GI PATHOGEN PROFILE BY PCR 2022-02-[address] [facility] 15:10:00 [facility] XR HIP 2 VIEWS BILATERAL 2022-02-24 ChaddCy melendez [facility] 08:03:00 [facility] XR HIP 2 VIEWS BILATERAL 2022-02-[facility] 08:03:00 [facility] C. DIFFICILE GDH TOXIN 2022-02-[address] [facility] 03:00:00 [facility] BLOOD CULTURE 2022-02-23 Dulce Janey Bautista [facility] 14:00:00 [facility] BLOOD CULTURE 2022-02-23 Dulce Janey Kelseyh [facility] 05:15:00 [facility] URINE CULTURE 2022-02-23 Dulce Janey Bautista [facility] 05:10:00 [facility] PERMANENT LAB REPORT - SCAN 2022-02-18 Provider, Default [facility] 00:00:00 Scanning [facility] EKG-SCANNED 2022-02-18 Provider, Default [facility] 00:00:00 [facility] COMPLEMENT COMPONENT C4 2022-02-[address] [facility] 12:36:00 [facility] DOUBLE-STRANDED DNA (DSDNA) 2022-02-[address] [facility] ANTIBODY 12:36:00 [facility] MAGNESIUM 2022-02-[address] [facility] 04:08:00 [facility] PHOSPHORUS 2022-02-[address] [facility] 04:08:00 [facility] CBC W/PLT COUNT & AUTO 2022-02-[address] [facility] DIFFERENTIAL 04:08:00 [facility] BASIC METABOLIC PANEL 2022-02-[address] [facility] 04:08:00 [facility] CBC W/PLT COUNT & AUTO 2022-02-11 Eli, Irina [facility] DIFFER[facility] 04:08:00 [facility] CBC W/PLT COUNT & AUTO 2022-02-10 Eli, Irina [facility] DIFFER[facility] 05:06:00 [facility] BASIC METABOLIC PANEL 2022-02-10 Eli, Irina [facility] 05:06:00 [facility] CBC W/PLT COUNT & AUTO 2022-02-10 Eli, Irina [facility] DIFFER[facility] 05:06:00 [facility] MAGNESIUM 2022-02-09 Marcwiley, Demetris [facility] 03:57:00 [facility] PHOSPHORUS 2022-02-09 Aribind, Demetris [facility] 03:57:00 [facility] CBC W/PLT COUNT & AUTO 2022-02-09 Eli, Irina [facility] DIFFER[facility] 03:57:00 [facility] BASIC METABOLIC PANEL 2022-02-09 Eli, Irina [facility] 03:57:00 [facility] CBC W/PLT COUNT & AUTO 2022-02-09 Eli, Irina [facility] DIFFER[facility] 03:57:00 [facility] CBC W/PLT COUNT & AUTO [address] [facility] DIFFERENTIAL 09:54:00 [facility] BASIC METABOLIC PANEL [address] [facility] 09:54:00 [facility] MAGNESIUM [address] [facility] 09:54:00 [facility] PHOSPHORUS [address] [facility] 09:54:00 [facility] CBC W/PLT COUNT & AUTO [address] [facility] DIFFERENTIAL 09:54:00 [facility] FUNGUS CULTURE + SMEAR 2022-02-[address] [facility] 14:34:00 [facility] SURGICALLY OBTAINED CULTURE 2022-02-[address] [facility] + GRAM STAIN 14:34:00 [facility] ANAEROBIC CULTURE 2022-02-[address] [facility] 14:34:00 [facility] AFB CULTURE + SMEAR 2022-02-[address] [facility] (NON-SPUTUM) 14:34:00 [facility] SPIN/CONCENTRATION CHARGE 2022-02-[address] [facility] 14:34:00 [facility] ANESTHESIA PERIPHERAL BLOCK 2022-02-[address] [facility] 13:15:39 [facility] ANESTHESIA PERIPHERAL BLOCK 2022-02-07 Hallie, Phucer [facility] 13:13:20 [facility] LAPAROTOMY, EXPLORATORY 2022-02-[address] [facility] 12:47:00 [facility] BASIC METABOLIC PANEL 2022-02-07 Aribindi, Demetris [facility] 03:34:00 [facility] MAGNESIUM 2022-02-07 Ariwileyi, Demetris [facility] 03:34:00 [facility] PHOSPHORUS 2022-02-07 Aribindi, Demetris [facility] 03:34:00 [facility] CBC W/PLT COUNT & AUTO 2022-02-[address] [facility] DIFFERENTIAL 03:34:00 [facility] PROTHROMBIN TIME/INR 2022-02-[address] [facility] 03:34:00 [facility] CBC W/PLT COUNT & AUTO 2022-02-[address] [facility] DIFFERENTIAL 03:34:00 [facility] SARS-COV2/RT-PCR ([facility] & REF 2022-02-06 Gonzalo [address] [facility] LABS) 20:08:00 [facility] TYPE AND SCREEN, AUTOMATED 2022-02-[address] [facility] 20:08:00 [facility] XR CHEST 1 VIEW PORTABLE / 2022-02-[address] [facility] BEDSIDE 18:34:00 [facility] CT ABDOMEN/PELVIS WITH IV 2022-02-[address] [facility] CONTRAST 11:11:00 [facility] CBC W/PLT COUNT & AUTO 2022-02-[address] [facility] DIFFERENTIAL 04:05:00 [facility] BASIC METABOLIC PANEL 2022-02-05 Galo, Shama Henzell [facility] 04:05:00 [facility] MAGNESIUM 2022-02-05 Mk Rosenthalabhinav Angulo [facility] 04:05:00 [facility] PHOSPHORUS 2022-02-05 Galo Shama Anuglo [facility] 04:05:00 [facility] CBC W/PLT COUNT & AUTO 2022-02-[address] [facility] DIFFERENTIAL 04:05:00 [facility] POCT-GLUCOSE METER 2022-02-[address] [facility] 07:24:00 [facility] CBC W/PLT COUNT & AUTO 2022-02-[address] [facility] DIFFERENTIAL 04:22:00 [facility] BASIC METABOLIC PANEL 2022-02-[address] [facility] 04:22:00 [facility] PHOSPHORUS 2022-02-[address] [facility] 04:22:00 [facility] CBC W/PLT COUNT & AUTO 2022-02-[address] [facility] DIFFERENTIAL 04:22:00 [facility] POCT-GLUCOSE METER 2022-02-02 Shama Rosenthal Juliusbonniel [facility] 18:06:00 [facility] REPORT OF PROCEDURE - 2022-02-02 Willard, Shawn [facility] ENDOSCOPY URL 12:46:22 [facility] [place] FLUORO NON-SPECIFIC UP TO 2022-02-02 Willard, Shawn [facility] 1 HOUR 12:15:00 [facility] ESOPHAGOSCOPY, WITH 2022-02-02 Willard, Shawn [facility] ENDOSCOPIC ULTRASOUND 11:27:00 [facility] nter PROCEDURE W/ C-ARM 2022-02-02 Willard, Shawn [facility] 11:27:00 [facility] CBC W/PLT COUNT & AUTO 2022-02-[address] [facility] DIFFERENTIAL 04:41:00 [facility] BASIC METABOLIC PANEL 2022-02-[address] [facility] 04:41:00 [facility] PHOSPHORUS 2022-02-[address] [facility] 04:41:00 [facility] PROTHROMBIN TIME/INR 2022-02-[address] [facility] 04:41:00 [facility] CBC W/PLT COUNT & AUTO 2022-02-[address] [facility] DIFFERENTIAL 04:41:00 [facility] EGD/Endoscopy 2022-02-02 [facility] 00:00:00 SARS-COV2/RT-PCR (HS & REF 2022-02-01 Aribindi, Demetris [facility] LABS) 08:33:00 [facility] CBC W/PLT COUNT & AUTO 2022-02-[address] [facility] DIFFERENTIAL 05:24:00 [facility] BASIC METABOLIC PANEL 2022-02-[address] [facility] 05:24:00 [facility] PHOSPHORUS 2022-02-[address] [facility] 05:24:00 [facility] PROTHROMBIN TIME/INR 2022-02-[address] [facility] 05:24:00 [facility] CBC W/PLT COUNT & AUTO 2022-02-[address] [facility] DIFFERENTIAL 05:24:00 [facility] CBC W/PLT COUNT & AUTO 2022-01-[address] [facility] DIFFERENTIAL 05:51:00 [facility] BASIC METABOLIC PANEL 2022-01-[address] [facility] 05:51:00 [facility] PHOSPHORUS 2022-01-[address] [facility] 05:51:00 [facility] CBC W/PLT COUNT & AUTO 2022-01-[address] [facility] DIFFERENTIAL 05:51:[address] [facility] [address] ABDOMEN/PELVIS WITH IV 2022-01-30 Negrito, Lexx [facility] CONTRAST 20:16:00 [facility] CBC W/PLT COUNT & AUTO 2022-01-[address] [facility] DIFFERENTIAL 06:07:00 [facility] BASIC METABOLIC PANEL 2022-01-[address] [facility] 06:07:00 [facility] PHOSPHORUS 2022-01-[address] [facility] 06:07:00 [facility] CBC W/PLT COUNT & AUTO 2022-01-[address] [facility] DIFFERENTIAL 06:07:00 [facility] CBC W/PLT COUNT & AUTO 2022-01-[address] [facility] DIFFERENTIAL 04:24:00 [facility] BASIC METABOLIC PANEL 2022-01-29 Ali, Hiba Ned [facility] 04:24:00 [facility] PHOSPHORUS 2022-01-29 Ali, Hiba Ned [facility] 04:24:00 [facility] CBC W/PLT COUNT & AUTO 2022-01-[address] [facility] DIFFERENTIAL 04:24:00 [facility] CBC W/PLT COUNT & AUTO 2022-01-[address] [facility] DIFFERENTIAL 14:51:00 [facility] BASIC METABOLIC PANEL 2022-01-28 Ali, Keron Cullenr [facility] 14:51:00 [facility] PHOSPHORUS 2022-01-28 Ali, Carlinea Ned [facility] 14:51:00 [facility] CBC W/PLT COUNT & AUTO 2022-01-[address] [facility] DIFFERENTIAL 14:51:00 [facility] COMPREHENSIVE METABOLIC 2022-01-27 Nalam, Nilsa Gladys [facility] PANEL 05:23:00 [facility] MAGNESIUM 2022-01-27 Nalam, Nilsa Gladys [facility] 05:23:00 [facility] CBC W/PLT COUNT & AUTO 2022-01-27 Nalam, Nilsa Gladys [facility] DIFFERENTIAL 05:23:00 [facility] PHOSPHORUS 2022-01-[address] [facility] 05:23:00 [facility] CBC W/PLT COUNT & AUTO 2022-01-27 Nalam, Nilsa Gladys [facility] DIFFERENTIAL 05:23:00 [facility] SARS-COV2/RT-PCR (HS & REF 2022-01-[address] [facility] LABS) 19:44:00 [facility] XR KNEE 3 VIEWS RIGHT 2022-01-[address] [facility] 12:47:00 [facility] COMPLEMENT COMPONENT C3 2022-01-26 Nalam, Nilsa Gladys [facility] 04:38:00 [facility] DOUBLE-STRANDED DNA (DSDNA) 2022-01-26 Nalam, Nisla Gladys [facility] ANTIBODY 04:38:00 [facility] COMPREHENSIVE METABOLIC 2022-01-26 Nalam, Nilsa Gladys [facility] PANEL 04:38:00 [facility] MAGNESIUM 2022-01-26 Nalam, Nilsa Gladys [facility] 04:38:00 [facility] CBC W/PLT COUNT & AUTO 2022-01-26 Nalam, Nilsa Gladys [facility] DIFFERENTIAL 04:38:00 [facility] PHOSPHORUS 2022-01-[address] [facility] 04:38:00 [facility] HEMOGLOBIN A1C 2022-01-26 Nalam, Nilsa Gladys [facility] 04:38:00 [facility] ANTI-DNA TITER 2022-01-26 Nalam, Nilsa Gladys [facility] 04:38:00 [facility] CBC W/PLT COUNT & AUTO 2022-01-26 Nalam, Nilsa Gladys [facility] DIFFERENTIAL 04:38:00 [facility] URINALYSIS W/ MICROSCOPIC 2022-01-25 Nalam, Nilsa Gladys [facility] 22:19:00 [facility] PROTHROMBIN TIME/INR 2022-01-25 Nalam, Nilsa Gladys [facility] 10:28:00 [facility] CBC W/PLT COUNT & AUTO 2022-01-[address] [facility] DIFFERENTIAL 06:40:00 [facility] BASIC METABOLIC PANEL 2022-01-25 Gricelda [facility]teaga [facility] 06:40:00 [facility] PT/APTT 2022-01-[address] [facility] 06:40:00 [facility] LACTIC ACID, VENOUS 2022-01-[address] [facility] 06:40:00 [facility] HEPATIC FUNCTION PANEL 2022-01-25 Nalam, Nilsa Gladys [facility] 06:40:00 [facility] MAGNESIUM 2022-01-25 Nalam, Nilsa Gladys [facility] 06:40:00 [facility] PHOSPHORUS 2022-01-25 Nalam, Nilsa Gladys [facility] 06:40:00 [facility] TYPE AND SCREEN, AUTOMATED 2022-01-[address] [facility] 06:40:00 [facility] CBC W/PLT COUNT & AUTO 2022-01-[address] [facility] DIFFERENTIAL 06:40:00 [facility] EKG-SCANNED 2022-01-[address] [facility] 00:00:00 Scanning [facility] BASIC METABOLIC PANEL 2021-12-25 Ari, Sahar [facility] 04:08:00 [facility] CBC W/PLT COUNT & AUTO 2021-12-25 EdgarAlex [facility] DIFFERENTIAL 04:08:00 [facility] CBC W/PLT COUNT & AUTO 2021-12-25 Edgar, Alex Post [facility] DIFFERENTIAL 04:08:00 [facility] SARS-COV2/RT-PCR ([facility] & REF 2021-12-24 [facility] 16:21:00 [facility] BASIC METABOLIC PANEL 2021-12-24 [facility] 03:16:00 [facility] CBC W/PLT COUNT & AUTO 2021-12-24 Alex Hern[facility]dez [facility] DIFFERENTIAL 03:16:00 [facility] CBC W/PLT COUNT & AUTO 2021-12-24 Edgar Alex Post [facility] DIFFERENTIAL 03:16:00 [facility] BASIC METABOLIC PANEL 2021-12-23 [facility] 03:08:00 [facility] CBC W/PLT COUNT & AUTO 2021-12-23 Edgar, Alex Post [facility] DIFFERENTIAL 03:08:00 [facility] CBC W/PLT COUNT & AUTO 2021-12-23 Edgar, Alex Post [facility] DIFFERENTIAL 03:08:00 [facility] BASIC METABOLIC PANEL 2021-12-22 [facility] 03:56:00 [facility] CBC W/PLT COUNT & AUTO 2021-12-22 EdgarAlex Post [facility] DIFFERENTIAL 03:56:00 [facility] COMPLEMENT COMPONENT C4 2021-12-[address] [facility] 03:56:00 [facility] CBC W/PLT COUNT & AUTO 2021-12-22 EdgarAlex Post [facility] DIFFERENTIAL 03:56:00 [facility] BASIC METABOLIC PANEL 2021-12-21 [facility] 05:21:00 [facility] CBC W/PLT COUNT & AUTO 2021-12-21 Alex Hern[facility]dez Yolanda [facility] DIFFER[facility] 05:21:00 [facility] CBC W/PLT COUNT & AUTO 2021-12-21 Alex Hernández Post [facility] DIFFERENTIAL 05:21:00 [facility] CT ABDOMEN/PELVIS WITH IV 2021-12-20 Suhail Man [facility] CONTRAST 06:25:00 [facility] BASIC METABOLIC PANEL 2021-12-20 [facility] 04:59:00 [facility] MAGNESIUM 2021-12-20 Arif, Sahar [facility] 04:59:00 [facility] CBC W/PLT COUNT & AUTO 2021-12-20 Alex Hernández Yolanda [facility] DIFFERENTIAL 04:59:00 [facility] CBC W/PLT COUNT & AUTO 2021-12-20 Alex Hernández Yolanda [facility] DIFFERENTIAL 04:59:00 [facility] BASIC METABOLIC PANEL 2021-12-19 [facility] 04:42:00 [facility] MAGNESIUM 2021-12-19 Arif, Sahar [facility] 04:42:00 [facility] CBC W/PLT COUNT & AUTO 2021-12-19 Alex Hernández Post [facility] DIFFERENTIAL 04:42:00 [facility] CBC W/PLT COUNT & AUTO 2021-12-19 Alex Hernández Post [facility] DIFFERENTIAL 04:42:00 [facility] BASIC METABOLIC PANEL 2021-12-18 Arif, Sahar [facility] 04:10:00 [facility] MAGNESIUM 2021-12-18 Arif, Sahar [facility] 04:10:00 [facility] CBC W/PLT COUNT & AUTO 2021-12-18 EdgarAlex alvarez Post [facility] DIFFERENTIAL 04:10:00 [facility] CBC W/PLT COUNT & AUTO 2021-12-18 EdgarAlex alvarez Post [facility] DIFFERENTIAL 04:10:00 [facility] SARS-COV2/RT-PCR ([facility] & REF 2021-12-17 [facility] 13:09:00 [facility] BASIC METABOLIC PANEL 2021-12-17 Arif, Sahar [facility] 05:40:00 [facility] MAGNESIUM 2021-12-17 Arif, Sahar [facility] 05:40:00 [facility] CBC W/PLT COUNT & AUTO 2021-12-17 Alex Hernández Post [facility]FFER[facility] 05:40:00 [facility] CREATINE KINASE (CK) 2021-12-17 Edgar Alex Post [facility] 05:40:00 [facility] CBC W/PLT COUNT & AUTO 2021-12-17 Alex Hernández Yolanda [facility] DIFFER[facility] 05:40:00 [facility] BASIC METABOLIC PANEL 2021-12-16 Arif, Miker [facility] 04:54:00 [facility] MAGNESIUM 2021-12-16 Arif, Sahar [facility] 04:54:00 [facility] HEPATIC FUNCTION PANEL 2021-12-16 Edgar Alex Post [facility] 04:54:00 [facility] CBC W/PLT COUNT & AUTO 2021-12-16 Alex Hernández Post [facility] DIFFERENTIAL 04:54:00 [facility] CBC W/PLT COUNT & AUTO 2021-12-16 Alex Hernández Yolanda [facility] DIFFER[facility] 04:54:00 [facility] MAGNESIUM 2021-12-15 Arif, Miker [facility] 12:00:00 [facility] BASIC METABOLIC PANEL 2021-12-15 Arif, Sahar [facility] 12:00:00 [facility] CBC (HEMOGRAM ONLY) 2021-12-15 Alex Hernández Yolanda [facility] 12:00:00 [facility] XR CHEST 1 VIEW PORTABLE / 2021-12-[address] [facility] BEDSIDE 10:17:00 [facility] MAGNESIUM 2021-12-15 Arif, Sahar [facility] 05:49:00 [facility] CT ABDOMEN/PELVIS WITH IV 2021-12-[address] [facility] CONTRAST 10:05:00 [facility] CBC W/PLT COUNT & AUTO 2021-12-14 Arif, Sahar [facility] DIFFER[facility] 05:39:00 [facility] CBC W/PLT COUNT & AUTO 2021-12-14 Arif, Sahar [facility] DIFFER[facility] 05:39:00 [facility] POCT-GLUCOSE METER 2021-12-[address] [facility] 07:29:00 [facility] BASIC METABOLIC PANEL 2021-12-13 Arif, Melissa [facility] 07:06:00 [facility] MAGNESIUM 2021-12-13 Arif, Miker [facility] 07:06:00 [facility] WOUND CULTURE + GRAM STAIN 2021-12-12 Arif, Melissa [facility] 18:11:00 [facility] CBC W/PLT COUNT & AUTO 2021-12-12 Arif, Miker [facility] DI[facility] 06:12:00 [facility] BASIC METABOLIC PANEL 2021-12-12 Arif, Miker [facility] 06:12:00 [facility] MAGNESIUM 2021-12-12 Arif, Miker [facility] 06:12:00 [facility] CBC W/PLT COUNT & AUTO 2021-12-12 Arif, Miker [facility] DIFFER[facility] 06:12:00 [facility] CT DRAINAGE W CATH PLACEMENT 2021-12-11 Arif, Miker [facility] 18:10:00 [facility] BASIC METABOLIC PANEL 2021-12-11 Arif, Melissa [facility] 05:56:00 [facility] MAGNESIUM 2021-12-11 Arif, Miker [facility] 05:56:00 [facility] CT ABDOMEN/PELVIS WITH IV 2021-12-[address] [facility] CONTRAST 13:21:00 [facility] SARS-COV2/RT-PCR ([facility] & REF 2021-12-10 Arif, Miker [facility]) 12:34:00 [facility] CBC W/PLT COUNT & AUTO 2021-12-10 Arif, Melissa [facility] DIFFERENTIAL 05:35:00 [facility] BASIC METABOLIC PANEL 2021-12-10 Arif, Miker [facility] 05:35:00 [facility] MAGNESIUM 2021-12-10 Arif, Miker [facility] 05:35:00 [facility] CBC W/PLT COUNT & AUTO 2021-12-10 Arif, Miker [facility] DIFFER[facility] 05:35:00 [facility] MISCELLANEOUS LAB ORDER 2021-12-[address] [facility] 17:08:00 [facility] BASIC METABOLIC PANEL 2021-12-09 Arif, Miker [facility] 04:11:00 [facility] MAGNESIUM 2021-12-09 Arif, [facility] 04:11:00 [facility] DOUBLE-STRANDED DNA (DSDNA) 2021-12-09 Arif, [facility] ANTIBODY 04:11:00 [facility] COMPLEMENT COMPONENT C4 2021-12-09 Arif, Melissa [facility] 04:11:00 [facility] PROTHROMBIN TIME/INR 2021-12-09 Arif, [facility] 04:11:00 [facility] ANTI-DNA TITER 2021-12-09 Arif, [facility] 04:11:00 [facility] URINALYSIS W/ MICROSCOPIC 2021-12-08 [facility], Mona Cesar [facility] 22:19:00 [facility] PROTEIN, RANDOM URINE 2021-12-08 [facility] [facility], [facility] 22:18:00 [facility] CREATININE, RANDOM URINE 2021-12-08 [facility], [facility] 22:18:00 [facility] POCT-GLUCOSE METER 2021-12-08 Arif, Melissa [facility] 10:20:00 [facility] BASIC METABOLIC PANEL 2021-12-08 Adio, Titilola R. [facility] 05:32:00 [facility] HEPATIC FUNCTION PANEL 2021-12-08 Adio, Titilola R. [facility] 05:32:00 [facility] LIPID PANEL 2021-12-08 Adio, Titilola R. [facility] 05:32:00 [facility] MAGNESIUM 2021-12-08 Adio, Titilola R. [facility] 05:32:00 [facility] PHOSPHORUS 2021-12-08 Adio, Titilola R. [facility] 05:32:00 [facility] CBC W/PLT COUNT & AUTO 2021-12-08 Adio, Titilola R. [facility] DIFFERENTIAL 05:32:00 [facility] HEMOGLOBIN A1C 2021-12-08 Adio, Titilola R. [facility] 05:32:00 [facility] CBC W/PLT COUNT & AUTO 2021-12-08 Adio, Titilola R. [facility] DIFFERENTIAL 05:32:00 [facility] BLOOD CULTURE 2021-12-[address] [facility] 14:13:00 [facility] POCT-GLUCOSE METER 2021-12-07 Ozuna, Khushi [facility] 13:44:00 [facility] CBC W/PLT COUNT & AUTO 2021-12-07 Ozuna, Khushi [facility] DIFFERENTIAL 13:39:00 [facility] LACTIC ACID, VENOUS 2021-12-07 Ozuna, [facility]ushi [facility] 13:39:00 [facility] COMPREHENSIVE METABOLIC 2021-12-07 Ozuna, Khushi [facility] PANEL 13:39:00 [facility] PROTHROMBIN TIME/INR 2021-12-07 Ozuna, Khushi [facility] 13:39:00 [facility] APTT 2021-12-07 Ozuna, Khushi [facility] 13:39:00 [facility] LIPASE 2021-12-07 Ozuna, Khushi [facility] 13:39:00 [facility] CBC W/PLT COUNT & AUTO 2021-12-07 Ozuna, Khushi [facility] DIFFERENTIAL 13:39:00 [facility] POCT-GLUCOSE METER 2021-10-[address] [facility] 11:51:00 [facility] POCT-GLUCOSE METER 2021-10-[address] [facility] 07:14:00 [facility] BASIC METABOLIC PANEL 2021-10-[address] [facility] 05:42:00 [facility] HEPATIC FUNCTION PANEL 2021-10-[address] [facility] 05:42:00 [facility] MAGNESIUM 2021-10-[address] [facility] 05:42:00 [facility] PHOSPHORUS 2021-10-10 Alex-Gilles, [facility] 05:42:00 [facility] CBC W/PLT COUNT & AUTO 2021-10-[address] [facility] DIFFERENTIAL 05:42:00 [facility] CBC W/PLT COUNT & AUTO 2021-10-[address] [facility] DIFFERENTIAL 05:42:00 [facility] POCT-GLUCOSE METER 2021-10-[address] [facility] 21:53:00 [facility] POCT-GLUCOSE METER 2021-10-[address] [facility] 16:39:00 [facility] POCT-GLUCOSE METER 2021-10-[address] [facility] 11:35:00 [facility] BASIC METABOLIC PANEL 2021-10-[address] [facility] 11:05:00 [facility] HEPATIC FUNCTION PANEL 2021-10-[address] [facility] 11:05:00 [facility] MAGNESIUM 2021-10-[address] [facility] 11:05:00 [facility] PHOSPHORUS 2021-10-[address] [facility] 11:05:00 [facility] CBC W/PLT COUNT & AUTO 2021-10-[address] [facility] DIFFERENTIAL 11:05:00 [facility] CBC W/PLT COUNT & AUTO 2021-10-[address] [facility] DIFFERENTIAL 11:05:00 [facility] POCT-GLUCOSE METER 2021-10-[address] [facility] 09:25:00 [facility] POCT-GLUCOSE METER 2021-10-[address] [facility] 20:30:00 [facility] SARS-COV2/RT-PCR (HS & REF 2021-10-[address] [facility] 19:22:00 [facility] POCT-GLUCOSE METER 2021-10-[address] [facility] 17:32:00 [facility] POCT-GLUCOSE METER 2021-10-[address] [facility] 11:58:00 [facility] POCT-GLUCOSE METER 2021-10-[address] [facility] 08:40:00 [facility] BASIC METABOLIC PANEL 2021-10-[address] [facility] 04:39:00 [facility] HEPATIC FUNCTION PANEL 2021-10-[address] [facility] 04:39:00 [facility] MAGNESIUM 2021-10-[address] [facility] 04:39:00 [facility] PHOSPHORUS 2021-10-[address] [facility] 04:39:00 [facility] CBC W/PLT COUNT & AUTO 2021-10-[address] [facility] DIFFERENTIAL 04:39:00 [facility] CBC W/PLT COUNT & AUTO 2021-10-[address] [facility] DIFFERENTIAL 04:39:00 [facility] POCT-GLUCOSE METER 2021-10-[address] [facility] 21:29:00 [facility] POCT-GLUCOSE METER 2021-10-[address] [facility] 16:23:00 [facility] POCT-GLUCOSE METER 2021-10-[address] [facility] 10:54:00 [facility] POCT-GLUCOSE METER 2021-10-[address] [facility] 07:37:00 [facility] BASIC METABOLIC PANEL 2021-10-[address] [facility] 04:03:00 [facility] HEPATIC FUNCTION PANEL 2021-10-[address] [facility] 04:03:00 [facility] MAGNESIUM 2021-10-[address] [facility] 04:03:00 [facility] PHOSPHORUS 2021-10-[address] [facility] 04:03:00 [facility] POCT-GLUCOSE METER 2021-10-[address] [facility] 21:21:00 [facility] POCT-GLUCOSE METER 2021-10-[address] [facility] 16:37:00 [facility] POCT-GLUCOSE METER 2021-10-[address] [facility] 12:35:00 [facility] BASIC METABOLIC PANEL 2021-10-[address] [facility] 05:03:00 [facility] HEPATIC FUNCTION PANEL 2021-10-[address] [facility] 05:03:00 [facility] MAGNESIUM 2021-10-[address] [facility] 05:03:00 [facility] PHOSPHORUS 2021-10-[address] [facility] 05:03:00 [facility] CBC W/PLT COUNT & AUTO 2021-10-[address] [facility] DIFFERENTIAL 05:03:00 [facility] CBC W/PLT COUNT & AUTO 2021-10-[address] [facility] DIFFERENTIAL 05:03:00 [facility] POCT-GLUCOSE METER 2021-10-[address] [facility] 21:08:00 [facility] POCT-GLUCOSE METER 2021-10-[address] [facility] 16:19:00 [facility] POCT-GLUCOSE METER 2021-10-[address] [facility] 11:23:00 [facility] POCT-GLUCOSE METER 2021-10-[address] [facility] 07:50:00 [facility] MAGNESIUM 2021-10-[address] [facility] 06:03:00 [facility] PHOSPHORUS 2021-10-[address] [facility] 06:03:00 [facility] CBC W/PLT COUNT & AUTO 2021-10-[address] [facility] DIFFERENTIAL 06:03:00 [facility] CBC W/PLT COUNT & AUTO 2021-10-[address] [facility] DIFFERENTIAL 06:03:00 [facility] BASIC METABOLIC PANEL 2021-10-[address] [facility] 06:03:00 [facility] HEPATIC FUNCTION PANEL 2021-10-[address] [facility] 06:03:00 [facility] SARS-COV2/RT-PCR (HS & REF 2021-10-[address] [facility]) 05:55:00 [facility] POCT-GLUCOSE METER 2021-10-[address] [facility] 21:11:00 [facility] POCT-GLUCOSE METER 2021-10-[address] [facility] 17:22:00 [facility] POCT-GLUCOSE METER 2021-10-[address] [facility] 11:19:00 [facility] CBC W/PLT COUNT & AUTO 2021-10-[address] [facility] DIFFERENTIAL 05:54:00 [facility] BASIC METABOLIC PANEL 2021-10-[address] [facility] 05:54:00 [facility] HEPATIC FUNCTION PANEL 2021-10-[address] [facility] 05:54:00 [facility] MAGNESIUM 2021-10-[address] [facility] 05:54:00 [facility] PHOSPHORUS 2021-10-[address] [facility] 05:54:00 [facility] CBC W/PLT COUNT & AUTO 2021-10-[address] [facility] DIFFERENTIAL 05:54:00 [facility] POCT-GLUCOSE METER 2021-10-[address] [facility] 16:36:00 [facility] POCT-GLUCOSE METER 2021-10-[address] [facility] 11:34:00 [facility] POCT-GLUCOSE METER 2021-10-[address] [facility] 04:57:00 [facility] BASIC METABOLIC PANEL 2021-10-[address] [facility] 04:52:00 [facility] HEPATIC FUNCTION PANEL 2021-10-[address] [facility] 04:52:00 [facility] MAGNESIUM 2021-10-03 Francesca, [facility] 04:52:00 [facility] CBC (HEMOGRAM ONLY) 2021-10-[address] [facility] 04:52:00 [facility] PHOSPHORUS 2021-10-[address] [facility] 04:52:00 [facility] BASIC METABOLIC PANEL 2021-10-[address] [facility] [facility] 20:40:00 [facility] CBC (HEMOGRAM ONLY) 2021-10-[address] [facility] 20:40:00 [facility] MAGNESIUM 2021-10-[address] [facility] 20:40:00 [facility] PHOSPHORUS 2021-10-[address] [facility] 20:40:00 [facility] POCT-GLUCOSE METER 2021-10-[address] [facility] 19:37:00 [facility] RRL CRITICAL LABS 2021-10-02 Lissette, Amado [facility] (ABG,NA,K,H&H,GLUCOSE) 17:55:12 [facility] enter CALCIUM, IONIZED 2021-10-02 Lissette, Amado [facility] 17:55:12 [facility] BLOOD GAS, ARTERIAL 2021-10-02 Lissette, Amadoshady [facility] 17:55:12 [facility] SODIUM NA-STAT LAB 2021-10-02 Lissette, [facility]adoshady [facility] 17:55:12 [facility] POTASSIUM-STAT LAB 2021-10-02 Lissette, Amadoshady [facility] 17:55:12 [facility] GLUCOSE-STAT LAB 2021-10-02 Lissette, Amadoshady [facility] 17:55:12 [facility] HGB/HCT (H&H) - STAT LAB 2021-10-02 Lissette, Amado [facility] 17:55:12 [facility] FUNGUS CULTURE + SMEAR 2021-10-[address] [facility] 17:47:00 [facility] SURGICALLY OBTAINED CULTURE 2021-10-02 Lissette, [facility]ado [facility] + GRAM STAIN 17:47:00 [facility] ANAEROBIC CULTURE 2021-10-02 Lissette, [facility]ado [facility] 17:47:00 [facility] AFB CULTURE + SMEAR 2021-10-[address] [facility] (NON-SPUTUM) 17:47:00 [facility] WASHOUT, ABDOMINAL CAVITY 2021-10-02 Lissette, Amado [facility] 16:47:00 [facility] POCT-GLUCOSE METER 2021-10-[address] [facility] 15:51:00 [facility] VANCOMYCIN LEVEL, TROUGH 2021-10-[address] [facility] 13:39:00 [facility] POCT-GLUCOSE METER 2021-10-[address] [facility] 10:50:00 [facility] POCT-GLUCOSE METER 2021-10-[address] [facility] 07:17:00 [facility] BASIC METABOLIC PANEL 2021-10-[address] [facility] 05:48:00 [facility] HEPATIC FUNCTION PANEL 2021-10-[address] [facility] 05:48:00 [facility] MAGNESIUM 2021-10-[address] [facility] 05:48:00 [facility] CBC (HEMOGRAM ONLY) 2021-10-[address] [facility] 05:48:00 [facility] PHOSPHORUS 2021-10-[address] [facility] 05:48:00 [facility] POCT-GLUCOSE METER 2021-10-[address] [facility] 21:35:00 [facility] POCT-GLUCOSE METER 2021-10-[address] [facility] 16:42:00 [facility] SARS-COV2/RT-PCR ([facility] & REF 2021-10-[address] [facility]S) 14:49:00 [facility] TYPE AND SCREEN, AUTOMATED 2021-10-[address] [facility] 14:48:00 [facility] POCT-GLUCOSE METER 2021-10-[address] [facility] 12:11:00 [facility] 2D ECHO W/ DOPPLER 2021-10-[address] [facility] (CW/PW/COLOR) 09:32:[address] [facility] [address] ABD/PELVIS - PANCREAS 2021-10-01 Matty L[address] [facility] EVALUATION 07:54:00 [facility] BASIC METABOLIC PANEL 2021-10-[address] [facility] 04:54:00 [facility] HEPATIC FUNCTION PANEL 2021-10-[address] [facility] 04:54:00 [facility] MAGNESIUM 2021-10-[address] [facility] 04:54:00 [facility] CBC (HEMOGRAM ONLY) 2021-10-[address] [facility] 04:54:00 [facility] PHOSPHORUS 2021-10-[address] [facility] 04:54:00 [facility] PREPARE LEUKO-REDUCED RBC 2021-09-[address] [facility] 23:54:00 [facility] POCT-GLUCOSE METER 2021-09-30 Bartkelsey, Kathy [facility] 22:32:00 [facility] BLOOD CULTURE 2021-09-30 Bartsch, Kathy [facility] 20:24:00 [facility] BLOOD CULTURE 2021-09-30 Bartsch, Kathy [facility] 20:23:00 [facility] POCT-GLUCOSE METER 2021-09-30 Bartsch, Kathy [facility] 17:01:00 [facility] POCT-GLUCOSE METER 2021-09-30 Bartsch, Kathy [facility] 11:33:00 [facility] POCT-GLUCOSE METER 2021-09-30 Rebecca, Kathy [facility] 07:38:00 [facility] DOUBLE-STRANDED DNA (DSDNA) 2021-09-30 Rebecca, Kathy [facility] ANTIBODY 05:18:00 [facility] ANTI-DNA TITER 2021-09-30 Bartsch, Kathy [facility] 05:18:00 [facility] COMPLEMENT COMPONENT C3 2021-09-30 Rebecca, Kathy [facility] 01:32:00 [facility] VANCOMYCIN LEVEL, TROUGH 2021-09-30 Alex Hernández [facility] 01:31:00 [facility] BASIC METABOLIC PANEL 2021-09-[address] [facility] 01:31:00 [facility] HEPATIC FUNCTION PANEL 2021-09-[address] [facility] 01:31:00 [facility] MAGNESIUM 2021-09-[address] [facility] 01:31:00 [facility] CBC (HEMOGRAM ONLY) 2021-09-[address] [facility] 01:31:00 [facility] PHOSPHORUS 2021-09-[address] [facility] 01:31:00 [facility] PREPARE LEUKO-REDUCED RBC 2021-09-[address] [facility] 23:54:00 [facility] POCT-GLUCOSE METER 2021-09-[address] [facility] 20:44:00 [facility] PROTEIN, RANDOM URINE 2021-09-[address] [facility] 17:45:00 [facility] CREATININE, RANDOM URINE 2021-09-[address] [facility] 17:45:00 [facility] URINALYSIS W/ MICROSCOPIC 2021-09-29 Rebecca Kathy [facility] 17:45:00 [facility] TRANSFUSE LEUKO-REDUCED RED 2021-09-29 Mokhtari, Carmen [facility] BLOOD CELLS 16:31:00 [facility] TRANSFUSE LEUKO-REDUCED RED 2021-09-29 Teofilori, Carmen [facility] BLOOD CELLS 12:26:00 [facility] POCT-GLUCOSE METER 2021-09-[address] [facility] 08:03:00 [facility] BASIC METABOLIC PANEL 2021-09-[address] [facility] 05:09:00 [facility] HEPATIC FUNCTION PANEL 2021-09-[address] [facility] 05:09:00 [facility] MAGNESIUM 2021-09-[address] [facility] 05:09:00 [facility] CBC (HEMOGRAM ONLY) 2021-09-[address] [facility] 05:09:00 [facility] PHOSPHORUS 2021-09-[address] [facility] 05:09:00 [facility] PROTHROMBIN TIME/INR 2021-09-[address] [facility] [facility] 05:09:00 [facility] POCT-GLUCOSE METER 2021-09-[address] [facility] 20:39:00 [facility] ECG 12-LEAD 2021-09-28 Unknown, Hl7 Doctor [facility] 18:40:16 [facility] ECG 12-LEAD 2021-09-28 Unknown, Hl7 Doctor [facility] 18:40:16 [facility] XR CHEST 1 VIEW PORTABLE / 2021-09-28 Ra Carmen [facility] BEDSIDE 18:22:00 [facility] HEMOGLOBIN AND HEMATOCRIT 2021-09-28 Kathy Fernandez [facility] 17:38:[address] [facility] [address] DRAINAGE ABDOMINAL 2021-09-[address] [facility] 16:51:00 [facility] AMYLASE, BODY FLUID 2021-09-[address] [facility] 16:35:00 [facility] BODY FLUID CULTURE + GRAM 2021-09-28 RebeccaKathy [facility] STAIN 16:34:00 [facility] ANAEROBIC CULTURE 2021-09-[address] [facility] 16:34:00 [facility] AMYLASE 2021-09-[address] [facility] 12:17:00 [facility] POCT-GLUCOSE METER 2021-09-[address] [facility] 12:09:00 [facility] TRANSFUSE LEUKO-REDUCED RED 2021-09-28 [facility] B[facility] 08:37:00 [facility] POCT-GLUCOSE METER 2021-09-[address] [facility] 07:47:00 [facility] ABORH, MANUAL 2021-09-[address] [facility] 07:34:00 [facility] TYPE AND SCREEN, AUTOMATED 2021-09-[address] [facility] 06:10:00 [facility] CBC W/PLT COUNT & AUTO 2021-09-28 [facility] DIFFERENTIAL 03:59:00 [facility] (CELLAVISION MANUAL DIFF) 2021-09-28 [facility] Marco Antoniomtjennifer [facility] 03:59:00 [facility] BASIC METABOLIC PANEL 2021-09-28 [facility] 03:59:00 [facility] HEPATIC FUNCTION PANEL 2021-09-28 [facility] 03:59:00 [facility] PROTHROMBIN TIME/INR 2021-09-28 [facility] Marco Antoniomtjennifer [facility] 03:59:00 [facility] MAGNESIUM 2021-09-28 [facility] Marco Antoniomtjennifer [facility] 03:59:00 [facility] PHOSPHORUS 2021-09-[address] [facility] 03:59:00 [facility] CBC W/PLT COUNT & AUTO 2021-09-[address] [facility] DIFFERENTIAL 03:59:00 [facility] LACTIC ACID, VENOUS 2021-09-[address] [facility] [facility] 03:59:00 [facility] SARS-COV2/RT-PCR ([facility] & REF 2021-09-[address] [facility]) 02:17:00 [facility] CT ABDOMEN/PELVIS WITH IV 2021-09-27 Kim[facility] Nunn [facility] CONTRAST 23:04:00 [facility] CBC W/PLT COUNT & AUTO 2021-09-[address] [facility] DIFFERENTIAL 21:35:00 [facility] (CELLAVISION MANUAL DIFF) 2021-09-27 [facility]unn [facility] 21:35:00 [facility] BLOOD CULTURE 2021-09-[address] [facility] 21:35:00 [facility] BLOOD CULTURE IDENTIFICATION 2021-09-[address] [facility] PANEL 21:35:00 [facility] CBC W/PLT COUNT & AUTO 2021-09-[address] [facility] DIFFERENTIAL 21:35:00 [facility] COMPREHENSIVE METABOLIC 2021-09-[address] [facility] PANEL 21:35:00 [facility] LIPASE 2021-09-[address] [facility] 21:35:00 [facility] LACTIC ACID, VENOUS 2021-09-[address] [facility] 21:35:00 [facility] PROTHROMBIN TIME/INR 2021-09-[address] [facility] 21:35:00 [facility] XR CHEST 1 VIEW PORTABLE / 2021-09-[address] [facility] BEDSIDE 20:27:00 [facility] CRITICAL CARE 2021-09-[address] [facility] 20:07:17 [facility] POCT-GLUCOSE METER 2021-09-22 Eli, Irina [facility] 16:25:00 [facility] FECAL LEUKOCYTES 2021-09-[address] [facility] 14:35:00 [facility] POCT-GLUCOSE METER 2021-09-22 Eli, Irina [facility] 11:27:00 [facility] POCT-GLUCOSE METER 2021-09-22 Eli, Irina [facility] 07:31:00 [facility] MAGNESIUM 2021-09-22 Ukani, Nilam [facility] 04:34:00 [facility] BASIC METABOLIC PANEL 2021-09-[address] [facility] 04:34:00 [facility] POCT-GLUCOSE METER 2021-09-21 Eli, Irina [facility] 21:58:00 [facility] POCT-GLUCOSE METER 2021-09-21 Eli, Irina [facility] 17:14:00 [facility] POCT-GLUCOSE METER 2021-09-21 Eli, Irina [facility] 11:42:00 [facility] POCT-GLUCOSE METER 2021-09-21 Eli, Irina [facility] 07:36:00 [facility] CBC W/PLT COUNT & AUTO 2021-09-[address] [facility] DIFFERENTIAL 04:27:00 [facility] MAGNESIUM 2021-09-21 Ukani, Nilam [facility] 04:27:00 [facility] COMPREHENSIVE METABOLIC 2021-09-[address] [facility] PANEL 04:27:00 [facility] CBC W/PLT COUNT & AUTO 2021-09-[address] [facility] DIFFERENTIAL 04:27:00 [facility] FERRITIN 2021-09-[address] [facility] 04:27:00 [facility] POCT-GLUCOSE METER 2021-09-20 Eli, Irina [facility] 22:54:00 [facility] POCT-GLUCOSE METER 2021-09-20 Eli, Irina [facility] 15:43:00 [facility] POCT-GLUCOSE METER 2021-09-20 Eli, Irina [facility] 11:26:00 [facility] POCT-GLUCOSE METER 2021-09-[address] [facility] 08:00:00 [facility] CBC W/PLT COUNT & AUTO 2021-09-[address] [facility] DIFFERENTIAL 03:44:00 [facility] MAGNESIUM 2021-09-20 Ukani, Nilam [facility] 03:44:00 [facility] COMPREHENSIVE METABOLIC 2021-09-[address] [facility] PANEL 03:44:00 [facility] CBC W/PLT COUNT & AUTO 2021-09-[address] [facility] DIFFERENTIAL 03:44:00 [facility] FERRITIN 2021-09-[address] [facility] 03:44:00 [facility] POCT-GLUCOSE METER 2021-09-[address] [facility] 22:13:00 [facility] POCT-GLUCOSE METER 2021-09-[address] [facility] 17:40:00 [facility] MAGNESIUM 2021-09-[address] [facility] 15:24:00 [facility] POCT-GLUCOSE METER 2021-09-[address] [facility] 13:28:00 [facility] POCT-GLUCOSE METER 2021-09-[address] [facility] 08:10:00 [facility] CBC W/PLT COUNT & AUTO 2021-09-[address] [facility] DIFFERENTIAL 05:35:00 [facility] SARS-COV2/RT-PCR ([facility] & REF 2021-09-[address] [facility]) 05:35:00 [facility] MAGNESIUM 2021-09-19 Ukani, Nilam [facility] 05:35:00 [facility] COMPREHENSIVE METABOLIC 2021-09-[address] [facility] PANEL 05:35:00 [facility] CBC W/PLT COUNT & AUTO 2021-09-[address] [facility] DIFFERENTIAL 05:35:00 [facility] FERRITIN 2021-09-[address] [facility] 05:35:00 [facility] POCT-GLUCOSE METER 2021-09-18 Alisa, Rebecca P. [facility] 21:29:00 [facility] POCT-GLUCOSE METER 2021-09-18 Alisa Rebecca P. [facility] 16:56:00 [facility] POCT-GLUCOSE METER 2021-09-18 Alisa, Rebecca [facility]. [facility] 12:15:00 [facility] POCT-GLUCOSE METER 2021-09-18 Alisa, Rebecca [facility]. [facility] 08:35:00 [facility] CBC W/PLT COUNT & AUTO 2021-09-[address] [facility] DIFFERENTIAL 06:58:00 [facility] MAGNESIUM 2021-09-18 Ukani, Nilam [facility] 06:58:00 [facility] COMPREHENSIVE METABOLIC 2021-09-[address] [facility] PANEL 06:58:00 [facility] CBC W/PLT COUNT & AUTO 2021-09-[address] [facility] DIFFERENTIAL 06:58:00 [facility] POCT-GLUCOSE METER 2021-09-17 Rebecca Cuellar P. [facility] 22:17:00 [facility] Center POCT-GLUCOSE METER 2021-09-17 Alisa, Rebecca P. [facility] 17:06:00 [facility] Center POCT-GLUCOSE METER 2021-09-17 Alisa, Rebecca P. [facility] 12:18:00 [facility] Center POCT-GLUCOSE METER 2021-09-17 Alisa, Rebecca P. [facility] 07:52:00 [facility] CBC W/PLT COUNT & AUTO 2021-09-[address] [facility] DIFFERENTIAL 05:45:00 [facility] MAGNESIUM 2021-09-17 Ukani, Nilam [facility] 05:45:00 [facility] FERRITIN 2021-09-[address] [facility] 05:45:00 [facility] COMPREHENSIVE METABOLIC 2021-09-[address] [facility] PANEL 05:45:00 [facility] CBC W/PLT COUNT & AUTO 2021-09-[address] [facility] DIFFERENTIAL 05:45:00 [facility] CMV PCR, QUANTITATIVE 2021-09-[address] [facility] 05:45:00 [facility] GI PATHOGEN PROFILE BY PCR 2021-09-17 Charmaine Contreras [facility] 05:11:00 [facility] GIARDIA ANTIGEN 2021-09-[address] [facility] 05:05:00 [facility] OVA AND PARASITE EXAMINATION 2021-09-[address] [facility] 04:59:00 [facility] POCT-GLUCOSE METER 2021-09-[address] [facility] 22:07:00 [facility] POCT-GLUCOSE METER 2021-09-[address] [facility] 17:29:00 [facility] POCT-GLUCOSE METER 2021-09-[address] [facility] 11:35:00 [facility] POCT-GLUCOSE METER 2021-09-[address] [facility] 07:52:00 [facility] CBC W/PLT COUNT & AUTO 2021-09-16 Rose Lorenzo [facility] DIFFERENTIAL 06:50:00 [facility] MAGNESIUM 2021-09-[address] [facility] 06:50:00 [facility] CBC W/PLT COUNT & AUTO 2021-09-16 Rose Lorenzo [facility] DIFFERENTIAL 06:50:00 [facility] COMPREHENSIVE METABOLIC 2021-09-[address] [facility] PANEL 06:50:00 [facility] FERRITIN 2021-09-[address] [facility] 06:50:00 [facility] POCT-GLUCOSE METER 2021-09-[address] [facility] 21:28:00 [facility] POCT-GLUCOSE METER 2021-09-[address] [facility] 17:17:00 [facility] BASIC METABOLIC PANEL 2021-09-[address] [facility] 16:38:00 [facility] MAGNESIUM 2021-09-[address] [facility] 16:38:00 [facility] VENOUS DOPPLER LEG, LEFT 2021-09-[address] [facility] 15:25:00 [facility] Center C. DIFFICILE GDH TOXIN 2021-09-15 Rose Lorenzo [facility] 14:29:00 [facility] POCT-GLUCOSE METER 2021-09-[address] [facility] 10:56:00 [facility] POCT-GLUCOSE METER 2021-09-[address] [facility] 07:10:00 [facility] CBC W/PLT COUNT & AUTO 2021-09-15 Rose Lorenzo [facility] DIFFERENTIAL 05:04:00 [facility] MAGNESIUM 2021-09-15 Ukani, Nilam [facility] 05:04:00 [facility] CBC W/PLT COUNT & AUTO 2021-09-15 Rose Lorenzo [facility] DIFFERENTIAL 05:04:00 [facility] COMPREHENSIVE METABOLIC 2021-09-[address] [facility] PANEL 05:04:00 [facility] FERRITIN 2021-09-[address] [facility] 05:04:00 [facility] POCT-GLUCOSE METER 2021-09-[address] [facility] 21:12:00 [facility] POCT-GLUCOSE METER 2021-09-[address] [facility] 18:00:00 [facility] FERRITIN 2021-09-[address] [facility] 14:00:00 [facility] POCT-GLUCOSE METER 2021-09-[address] [facility] 12:40:00 [facility] MAGNESIUM 2021-09-14 Ukani, Nilam [facility] 12:24:00 [facility] BASIC METABOLIC PANEL 2021-09-[address] [facility] 12:24:00 [facility] HEPATIC FUNCTION PANEL 2021-09-14 Rose Lorenzo [facility] 12:24:00 [facility] POCT-GLUCOSE METER 2021-09-[address] [facility] 08:04:00 [facility] POCT-GLUCOSE METER 2021-09-[address] [facility] 21:38:00 [facility] POCT-GLUCOSE METER 2021-09-[address] [facility] 16:22:00 [facility] POCT-GLUCOSE METER 2021-09-[address] [facility] 11:57:00 [facility] POCT-GLUCOSE METER 2021-09-[address] [facility] 09:31:00 [facility] CBC W/PLT COUNT & AUTO 2021-09-13 Ukani, Nilam [facility] DIFFERENTIAL 04:11:00 [facility] CBC W/PLT COUNT & AUTO 2021-09-13 Ukani, Nilam [facility] DIFFERENTIAL 04:11:00 [facility] COMPREHENSIVE METABOLIC 2021-09-13 Ukani, Nilam [facility] PANEL 04:11:00 [facility] MAGNESIUM 2021-09-13 Ukani, Nilam [facility] 04:11:00 [facility] PHOSPHORUS 2021-09-13 Ukani, Nilam [facility] 04:11:00 [facility] POCT-GLUCOSE METER 2021-09-[address] [facility] 21:08:00 [facility] CBC W/PLT COUNT & AUTO 2021-09-12 Ukani, Nilam [facility] DIFFERENTIAL 17:30:00 [facility] CBC W/PLT COUNT & AUTO 2021-09-12 Ukani, Nilam [facility] DIFFERENTIAL 17:30:00 [facility] COMPREHENSIVE METABOLIC 2021-09-12 Ukani, Nilam [facility] PANEL 17:30:00 [facility] MAGNESIUM 2021-09-12 Ukani, Nilam [facility] 17:30:00 [facility] PHOSPHORUS 2021-09-12 Ukani, Nilam [facility] 17:30:00 [facility] HEMOGLOBIN A1C 2021-09-[address] [facility] 17:30:00 [facility] DOUBLE-STRANDED DNA (DSDNA) 2021-09-[address] [facility] ANTIBODY 17:30:00 [facility] COMPLEMENT COMPONENT C4 2021-09-12 Maganti, Lynette [facility] 17:30:00 [facility] FERRITIN 2021-09-[address] [facility] 17:30:00 [facility] ANTI-DNA TITER 2021-09-[address] [facility] 17:30:00 [facility] POCT-GLUCOSE METER 2021-09-12 Curtisjordi Rose CortneyAmanda [facility] 16:59:00 [facility] POCT-GLUCOSE METER 2021-09-12 Maura Rose CortneyAmanda [facility] 11:36:00 [facility] XR HIP 2 VIEWS BILATERAL 2021-09-12 Maura Rose CortneyAmanda [facility] 10:40:00 [facility] XR SHOULDER COMPLETE 2 VIEWS 2021-09-12 Maura Rose CortneyAmanda [facility] MIN RIGHT 10:40:00 [facility] XR HAND 3 VIEWS RIGHT 2021-09-12 Maura Rose CortneyAmanda [facility] 10:40:00 [facility] POCT-GLUCOSE METER 2021-09-12 Rose Lorenzo CortneyAmanda [facility] 07:29:00 [facility] PROTEIN, RANDOM URINE 2021-09-[address] [facility] 05:46:00 [facility] CREATININE, RANDOM URINE 2021-09-[address] [facility] 05:46:00 [facility] POCT-GLUCOSE METER 2021-09-11 Maura Rose [address]manda [facility] 21:23:00 [facility] POCT-GLUCOSE METER 2021-09-11 Rose Lorenzo CortneyAmanda [facility] 16:19:00 [facility] POCT-GLUCOSE METER 2021-09-[address] [facility] 11:34:00 [facility] CBC W/PLT COUNT & AUTO 2021-09-[address] [facility] DIFFERENTIAL 09:40:00 [facility] BLOOD CULTURE 2021-09-[address] [facility] 09:40:00 [facility] CBC W/PLT COUNT & AUTO 2021-09-11 Ukani, Nilam [facility] DIFFERENTIAL 09:40:00 [facility] COMPREHENSIVE METABOLIC 2021-09-11 Uklon, Nilam [facility] PANEL 09:40:00 [facility] MAGNESIUM 2021-09-[address] [facility] 09:40:00 [facility] PHOSPHORUS 2021-09-11 Nj, Nilam [facility] 09:40:00 [facility] POCT-GLUCOSE METER 2021-09-[address] [facility] 07:18:[address] ABDOMEN/PELVIS WITH IV 2021-09-[address] [facility] CONTRAST 23:05:00 [facility] POCT-GLUCOSE METER 2021-09-[address] [facility] 20:57:00 [facility] BLOOD CULTURE 2021-09-[address] [facility] 10:38:00 [facility] LACTIC ACID, VENOUS 2021-09-[address] [facility] 10:36:00 [facility] PROTHROMBIN TIME/INR 2021-09-[address] [facility] 10:36:00 [facility] APTT 2021-09-[address] [facility] 10:36:00 [facility] PROCALCITONIN 2021-09-[address] [facility] 10:36:00 [facility] XR CHEST 1 VIEW PORTABLE / 2021-09-[address] [facility] 09:14:00 [facility] CBC W/PLT COUNT & AUTO 2021-09-10 Nj, Nilam [facility] DIFFERENTIAL 05:05:00 [facility] (CELLAVISION MANUAL DIFF) 2021-09-10 Nj, Nilam [facility] 05:05:00 [facility] CBC W/PLT COUNT & AUTO 2021-09-10 Uklon, Nilam [facility] DIFFERENTIAL 05:05:00 [facility] COMPREHENSIVE METABOLIC 2021-09-10 Uklon, Nilam [facility] PANEL 05:05:00 [facility] MAGNESIUM 2021-09-10 Uklon, Nilam [facility] 05:05:00 [facility] PHOSPHORUS 2021-09-10 Uklon, Nilam [facility] 05:05:00 [facility] POCT-GLUCOSE METER 2021-09-[address] [facility] 20:57:00 [facility] POCT-GLUCOSE METER 2021-09-09 Maura Rose [address]a [facility] 16:16:00 [facility] COMPREHENSIVE METABOLIC 2021-09-[address] PANEL 14:55:00 [facility] POCT-GLUCOSE METER 2021-09-09 [address] [facility] 11:25:00 [facility] 2D ECHO MODE W/O DOPPLER 2021-09-09 Babita Cano [facility] 09:55:28 [facility] POCT-GLUCOSE METER 2021-09-09 [address]a [address] M[address] [facility] 06:44:00 [facility] POCT-GLUCOSE METER 2021-09-[address] [facility] 21:08:00 [facility] POCT-GLUCOSE METER 2021-09-[address] [facility] 19:41:00 [facility] POCT-GLUCOSE METER 2021-09-[address] [facility] 11:25:00 [facility] POCT-GLUCOSE METER 2021-09-08 Maura Rose CortneyAmanda [facility] 09:10:00 [facility] POCT-GLUCOSE METER 2021-09-[address] [facility] 05:04:00 [facility] CBC W/PLT COUNT & AUTO 2021-09-[address] [facility] DIFFERENTIAL 04:20:00 [facility] CBC W/PLT COUNT & AUTO 2021-09-[address] [facility] DIFFERENTIAL 04:20:00 [facility] COMPREHENSIVE METABOLIC 2021-09-[address] [facility] PANEL 04:20:00 [facility] MAGNESIUM 2021-09-[address] [facility] 04:20:00 [facility] PHOSPHORUS 2021-09-[address] [facility] 04:20:00 [facility] POCT-GLUCOSE METER 2021-09-[address] [facility] 23:09:00 [facility] POCT-GLUCOSE METER 2021-09-[address] [facility] 18:43:00 [facility] HAPTOGLOBIN 2021-09-[address] [facility] 12:25:00 [facility] FIBRINOGEN 2021-09-[address] [facility] 12:25:00 [facility] VANCOMYCIN LEVEL, TROUGH 2021-09-07 David De La Vega [facility] 12:25:00 [facility] HEMOGLOBIN AND HEMATOCRIT 2021-09-[address] [facility] 12:25:00 [facility] COMPREHENSIVE METABOLIC 2021-09-[address] [facility] PANEL 12:24:00 [facility] MAGNESIUM 2021-09-[address] [facility] 12:24:00 [facility] PHOSPHORUS 2021-09-[address] [facility] 12:24:00 [facility] LIPASE 2021-09-[address] [facility] 12:24:00 [facility] PROCALCITONIN 2021-09-07 [facility] [address] [facility] 12:24:00 [facility] HEPATIC FUNCTION PANEL 2021-09-07 [facility] [facility] 12:24:00 [facility] POCT-GLUCOSE METER 2021-09-[address] [facility] 12:01:00 [facility] URINALYSIS W/ REFLEX URINE 2021-09-[address] [facility] CULTURE 11:58:00 [facility] CBC W/PLT COUNT & AUTO 2021-09-[address] [facility] DIFFERENTIAL 05:29:00 [facility] (CELLAVISION MANUAL DIFF) 2021-09-07 [facility]de [facility] 05:29:00 [facility] CBC W/PLT COUNT & AUTO 2021-09-[address] [facility] DIFFERENTIAL 05:29:00 [facility] LACTIC ACID, VENOUS 2021-09-[address] [facility] 05:29:00 [facility] B-TYPE NATRIURETIC FACTOR 2021-09-07 T[facility]overde [facility] 05:29:00 [facility] PERIPHERAL BLOOD SMEAR - 2021-09-[address] [facility] PATHOLOGIST REVIEW 05:29:00 [facility] r POCT-BLOOD GASES, ARTERIAL 2021-09-[address] [facility] 02:53:00 [facility] POCT-SODIUM 2021-09-[address] [facility] 02:53:00 [facility] POCT-POTASSIUM 2021-09-[address] [facility] 02:53:00 [facility] POCT-HEMOGLOBIN 2021-09-[address] [facility] 02:53:00 [facility] POCT-HEMATOCRIT 2021-09-[address] [facility] 02:53:00 [facility] POCT-GLUCOSE 2021-09-[address] [facility] 02:53:00 [facility] XR CHEST 1 VIEW PORTABLE / 2021-09-[address] [facility] BEDSIDE 02:51:00 [facility] ECG 12-LEAD 2021-09-[address] [facility] 01:42:00 [facility] ECG 12-LEAD 2021-09-07 Unknown, Hl7 Doctor [facility] 01:42:00 [facility] ECG 12-LEAD 2021-09-[address] [facility] 01:37:32 [facility] ECG 12-LEAD 2021-09-07 Unknown, Hl7 Doctor [facility] 01:37:32 [facility] BASIC METABOLIC PANEL 2021-09-07 Shama [facility]enthal [facility] 01:05:00 [facility] MAGNESIUM 2021-09-[address] [facility] 01:05:00 [facility] PHOSPHORUS 2021-09-[address] [facility] 01:05:00 [facility] LACTATE DEHYDROGENASE (LDH) 2021-09-[address] [facility] 01:05:00 [facility] BILIRUBIN, DIRECT 2021-09-[address] [facility] 01:05:00 [facility] POCT-GLUCOSE METER 2021-09-[address] [facility] 23:58:00 [facility] POCT-GLUCOSE METER 2021-09-[address] [facility] 15:46:00 [facility] MRSA SCREEN 2021-09-[address] [facility] 12:58:00 [facility] POCT-GLUCOSE METER 2021-09-[address] Galo [address]ati [facility] 12:53:00 [facility] POCT-GLUCOSE METER 2021-09-06 Galo [address] Juliuskati [facility] 07:29:00 [facility] URINALYSIS W/ MICROSCOPIC 2021-09-[address] [facility] 05:28:00 [facility] PROTEIN, RANDOM URINE 2021-09-[address] [facility] 05:28:00 [facility] CREATININE, RANDOM URINE 2021-09-[address] [facility] 05:28:00 [facility] COMPLEMENT COMPONENT C4 2021-09-[address] [facility] 05:14:00 [facility] VITAMIN D, 25-HYDROXY 2021-09-06 Shama Rosenthal [facility] 05:14:00 [facility] TSH/FREE T4 IF INDICATED 2021-09-[address] [facility] 05:14:00 [facility] XR CHEST 1 VIEW PORTABLE / 2021-09-06 Kareem Calhoun [facility] 02:18:00 [facility] BLOOD CULTURE 2021-09-[address] [facility] 02:06:00 [facility] CBC W/PLT COUNT & AUTO 2021-09-[address] [facility] DIFFERENTIAL 02:01:00 [facility] (CELLAVISION MANUAL DIFF) 2021-09-06 Shama Rosenthal [facility] 02:01:00 [facility] BLOOD CULTURE 2021-09-[address] [facility] 02:01:00 [facility] CBC W/PLT COUNT & AUTO 2021-09-[address] [facility] DIFFERENTIAL 02:01:00 [facility] LACTIC ACID, VENOUS 2021-09-[address] [facility] 02:01:00 [facility] PHOSPHORUS 2021-09-06 Nj, Nilam [facility] 02:00:00 [facility] MAGNESIUM 2021-09-06 Uklon, Nilam [facility] 02:00:00 [facility] COMPREHENSIVE METABOLIC 2021-09-06 Mk [address]l Kev [facility] PANEL 02:00:00 [facility] SARS-COV2/RT-PCR (HS & REF 2021-09-[address] [facility]) 01:54:00 [facility] ECG 12-LEAD 2021-09-06 Mk Rosenthalll Evelial [facility] 01:44:10 [facility] POCT-GLUCOSE METER 2021-09-[address] [facility] 01:04:00 [facility] BASIC METABOLIC PANEL 2021-09-05 Shama [facility]enthal [facility] 19:09:00 [facility] MAGNESIUM 2021-09-05 Shama Rosenthal Evelial [facility] 19:09:00 [facility] PHOSPHORUS 2021-09-[address] [facility] 19:09:00 [facility] POCT-GLUCOSE METER 2021-09-05 Shama Rosenthal Kev [facility] 19:00:00 [facility] DOUBLE-STRANDED DNA (DSDNA) 2021-09-05 Dahlia, Lynette [facility] ANTIBODY 16:26:00 [facility] FERRITIN 2021-09-05 Maganti, Lynette [facility] 16:26:00 [facility] ANTI-DNA TITER 2021-09-05 Maganti, Lynette [facility] 16:26:00 [facility] POCT-GLUCOSE METER 2021-09-[address] [facility] 12:11:00 [facility] POCT-GLUCOSE METER 2021-09-05 Shama Rosenthal Juliuszell [facility] 06:34:00 [facility] COMPREHENSIVE METABOLIC 2021-09-05 Uklon, Nilam [facility] PANEL 04:46:00 [facility] CBC (HEMOGRAM ONLY) 2021-09-05 Ukani, Nilam [facility] 04:46:00 [facility] CALCIUM, IONIZED 2021-09-[address] [facility] 04:46:00 [facility] BASIC METABOLIC PANEL 2021-09-05 Shama Rosenthal Juliuskati [facility] 00:40:00 [facility] MAGNESIUM 2021-09-05 Mk Rosenthalll Juliuszell [facility] 00:40:00 [facility] PHOSPHORUS 2021-09-05 Galo, Shama Juliusbonniel [facility] 00:40:00 [facility] POCT-GLUCOSE METER 2021-09-04 Galo, Shama Juliuszell [facility] 23:48:[address] ABDOMEN/PELVIS WITH IV 2021-09-04 Nj, Nilam [facility] CONTRAST 21:08:00 [facility] CTA CHEST FOR PULMONARY 2021-09-[address] [facility] EMBOLUS 21:08:00 [facility] POCT-GLUCOSE METER 2021-09-[address] [facility] 18:12:00 [facility] CALCIUM 2021-09-04 Nj, Nilam [facility] 14:09:00 [facility] POCT-GLUCOSE METER 2021-09-[address] [facility] 13:06:00 [facility] ECG 12-LEAD 2021-09-04 Uklon, Nilam [facility] 08:09:50 [facility] POCT-GLUCOSE METER 2021-09-[address] [facility] 06:04:00 [facility] CBC W/PLT COUNT & AUTO 2021-09-04 Ukani, Nilam [facility] DIFFERENTIAL 04:12:00 [facility] COMPREHENSIVE METABOLIC 2021-09-04 Ukani, Nilam [facility] PANEL 04:12:00 [facility] MAGNESIUM 2021-09-04 Ukani, Nilam [facility] 04:12:00 [facility] CBC W/PLT COUNT & AUTO 2021-09-04 Ukani, Nilam [facility] DIFFERENTIAL 04:12:00 [facility] URINE CULTURE 2021-09-04 Ukani, Nilam [facility] 00:21:00 [facility] URINALYSIS W/ REFLEX URINE 2021-09-04 Ukani, Nilam [facility] CULTURE 00:21:00 [facility] POCT-GLUCOSE METER 2021-09-[address] [facility] 00:14:00 [facility] POCT-GLUCOSE METER 2021-09-[address] [facility] 17:51:00 [facility] CBC W/PLT COUNT & AUTO 2021-09-03 Mk Rosenthalll Eveliacata [facility] DIFFERENTIAL 16:56:00 [facility] COMPREHENSIVE METABOLIC 2021-09-[address] [facility] PANEL 16:56:00 [facility] CBC W/PLT COUNT & AUTO 2021-09-[address] [facility] DIFFERENTIAL 16:56:00 [facility] MAGNESIUM 2021-09-03 Nj, Nilam [facility] 16:56:00 [facility] XR ABDOMEN/KUB 1 VIEW 2021-09-03 Ukani, Nilam [facility] PORTABLE 16:05:00 [facility] XR CHEST 1 VIEW PORTABLE / 2021-09-03 Uklon, Nilam [facility] 16:02:00 [facility] XR ABDOMEN/KUB 1 VIEW 2021-09-03 Shama [facility]enthalcata [facility] PORTABLE 12:50:00 [facility] COMPREHENSIVE METABOLIC 2021-09-[address] [facility] PANEL 05:02:00 [facility] PHOSPHORUS 2021-09-03 Uklon, Nilam [facility] 05:02:00 [facility] POCT-GLUCOSE METER 2021-09-[address] [facility] 22:13:00 [facility] POCT-GLUCOSE METER 2021-09-02 Galo Shama Juliuszell [facility] 18:48:00 [facility] CREATININE, RANDOM URINE 2021-09-02 Bhairavarasu, [facility] 04:39:00 [facility] PROTEIN, RANDOM URINE 2021-09-02 Bhairavarasu, [facility] 04:39:00 [facility] POCT-GLUCOSE METER 2021-09-[address] [facility] 23:16:00 [facility] POCT-GLUCOSE METER 2021-09-[address] [facility] 18:08:00 [facility] HIGH SENSITIVITY TROPONIN I 2021-09-01 Nj, Nilam [facility] 16:25:00 [facility] XR CHEST 1 VIEW PORTABLE / 2021-09-01 Nj, Nilam [facility] 16:21:00 [facility] ECG 12-LEAD 2021-09-01 Unknown, Hl7 Doctor [facility] 15:41:33 [facility] CBC W/PLT COUNT & AUTO 2021-09-01 Kaydenavarasu, [facility] DIFFERENTIAL 06:00:00 [facility] (CELLAVISION MANUAL DIFF) 2021-09-01 Bhavaclarau, [facility] 06:00:00 [facility] COMPREHENSIVE METABOLIC 2021-09-[address] [facility] PANEL 06:00:00 [facility] PROTHROMBIN TIME/INR 2021-09-01 Nj, Nilam [facility] 06:00:00 [facility] PT/APTT 2021-09-01 Nj, Nilam [facility] 06:00:00 [facility] CBC W/PLT COUNT & AUTO 2021-09-01 Kaydenavaclarau, [facility] DIFFERENTIAL 06:00:00 [facility] T SPOT TB 2021-09-[address] [facility] 06:00:00 [facility] IMMUNOGLOBULIN A (IGA) 2021-09-[address] [facility] 06:00:00 [facility] POCT-GLUCOSE METER 2021-08-[address] [facility] 21:49:00 [facility] POCT-GLUCOSE METER 2021-08-[address] [facility] 17:13:00 [facility] POCT-GLUCOSE METER 2021-08-[address] [facility] 13:28:00 [facility] POCT-GLUCOSE METER 2021-08-[address] [facility] 08:41:00 [facility] MISCELLANEOUS LAB ORDER 2021-08-[address] [facility] 06:22:00 [facility] MISCELLANEOUS LAB ORDER 2021-08-[address] [facility] 05:16:00 [facility] ANTI-DARRIN AB (SCARF GLUER, LACY) 2021-08-31 Avu, [facility] 05:14:00 [facility] CYCLIC CITRULLINATED PEPTIDE 2021-08-31 adrianneu, [facility] AB, IGG 05:14:00 [facility] CBC (HEMOGRAM ONLY) 2021-08-31 Nalam, Nilsa Gladys [facility] 05:14:00 [facility] PROTHROMBIN TIME/INR 2021-08-31 Uklon, Nilam [facility] 05:14:00 [facility] PT/APTT 2021-08-31 [facility], Nilam [facility] 05:14:00 [facility] RETICULOCYTE COUNT 2021-08-[address] [facility] 05:14:00 [facility] MISCELLANEOUS LAB ORDER 2021-08-[address] [facility] 05:13:00 [facility] COMPLEMENT COMPONENT C4 2021-08-[address] [facility] 05:13:00 [facility] FERRITIN 2021-08-31 Avu, [facility] 05:13:00 [facility] RHEUMATOID FACTOR AB, REFLEX 2021-08-31 adrianneu, [facility] TO TITER 05:13:00 [facility] MAGNESIUM 2021-08-[address] [facility] 05:13:00 [facility] COMPREHENSIVE METABOLIC 2021-08-31 Nalam, Nilsa Gladys [facility] PANEL 05:13:00 [facility] HC LAB HIV-1 AG W/HIV-1&2 AB 2021-08-[address] [facility] 05:13:00 [facility] Center RPR 2021-08-[address] [facility] 05:13:00 [facility] RHEUMATOID FACTOR TITER 2021-08-31 Bhairavarasu, [facility] 05:13:00 [facility] POCT-GLUCOSE METER 2021-08-[address] [facility] 21:08:00 [facility] POCT-GLUCOSE METER 2021-08-[address] [facility] 17:25:00 [facility] POCT-GLUCOSE METER 2021-08-[address] [facility] 12:38:00 [facility] POCT-GLUCOSE METER 2021-08-[address] [facility] 08:11:00 [facility] MAGNESIUM 2021-08-[address] [facility] 03:22:00 [facility] COMPREHENSIVE METABOLIC 2021-08-30 Gabriel, Nilsa Gladys [facility] PANEL 03:22:00 [facility] CBC (HEMOGRAM ONLY) 2021-08-30 Gabriel, Nilsa Gladys [facility] 03:22:00 [facility] PROTHROMBIN TIME/INR 2021-08-30 Ukani, Nilam [facility] 03:22:00 [facility] PT/APTT 2021-08-30 Ukani, Nilam [facility] 03:22:00 [facility] C-REACTIVE PROTEIN 2021-08-30 Ukani, Nilam [facility] 03:22:00 [facility] DOUBLE-STRANDED DNA (DSDNA) 2021-08-30 Ukani, Nilam [facility] ANTIBODY 03:22:00 [facility] LIPASE 2021-08-[address] [facility] 03:22:00 [facility] ANTI-DNA TITER 2021-08-30 Ukani, Nilam [facility] 03:22:00 [facility] POCT-GLUCOSE METER 2021-08-29 Nalam, Nilsa Gladys [facility] 21:37:00 [facility] POCT-GLUCOSE METER 2021-08-29 Nalam, Nilsa Gladys [facility] 17:43:00 [facility] FIBRINOGEN 2021-08-29 [place], Peace [facility] 13:31:00 [facility] PHOSPHATIDYLSERINE ABS (IGG, 2021-08-29 [place], Peace [facility] IGM) 13:31:00 [facility] HEREDITARY HEMOCHROMATOSIS 2021-08-[address] [facility] 13:31:00 [facility] POCT-GLUCOSE METER 2021-08-29 [address]ilsa Rios Gladys [facility] 11:43:00 [facility] POCT-GLUCOSE METER 2021-08-29 Gabriel, Nilsa Gladys [facility] 08:43:00 [facility] SARS-COV2/RT-PCR (SLHS & REF 2021-08-[address] [facility]) 04:44:00 [facility] MAGNESIUM 2021-08-[address] [facility] 04:41:00 [facility] COMPREHENSIVE METABOLIC 2021-08-[address] [facility] PANEL 04:41:00 [facility] PROTHROMBIN TIME/INR 2021-08-[address] [facility] 04:41:00 [facility] LIPASE 2021-08-[address] [facility] 04:41:00 [facility] PHOSPHORUS 2021-08-[address] [facility] 04:41:00 [facility] (MANUAL DIFFERENTIAL) 2021-08-[address] [facility] 04:40:00 [facility] CBC (HEMOGRAM ONLY) 2021-08-[address] [facility] 04:40:00 [facility] PERIPHERAL BLOOD SMEAR - 2021-08-[address] [facility] PATHOLOGIST REVIEW 04:40:00 [facility] 2021-08-[address] [facility] 04:30:00 [facility] ACTIN (SMOOTH MUSCLE) 2021-08-[address] [facility] ANTIBODY, IGG 14:55:00 [facility] ANTI-MITOCHONDRIAL AB, 2021-08-28 Piyush Carodaphne Méndezir [facility] REFLEX TO TITER 14:55:00 [facility] ANTI-NUCLEAR ANTIBODY (STU) 2021-08-[address] [facility] 14:55:00 [facility] CERULOPLASMIN 2021-08-[address] [facility] 14:55:00 [facility] FERRITIN 2021-08-[address] [facility] 14:55:00 [facility] Center HEPATITIS A ANTIBODY, IGG 2021-08-28 Gordo, [facility]ik [facility]aca [facility] 14:55:00 [facility] HEPATITIS B CORE ANTIBODY, 2021-08-28 Gordo, Rik Méndezir [facility] TOTAL 14:55:00 [facility] HEPATITIS B SURFACE ANTIBODY 2021-08-[address] [facility] 14:55:00 [facility] HEPATITIS B SURFACE ANTIGEN 2021-08-28 Gordo, Rik Vaca [facility] 14:55:00 [facility] HEPATITIS C ANTIBODY 2021-08-28 Gordo, Rik Vaca [facility] 14:55:00 [facility] IMMUNOGLOBULIN G (IGG) 2021-08-[address] [facility] 14:55:00 [facility] IRON, TIBC, % SAT. (WITHOUT 2021-08-[address] [facility] FERRITIN) 14:55:00 [facility] STU TITER AND PATTERN 2021-08-28 Gordo, Rik Vaca [facility] 14:55:00 [facility] MITOCHONDRIAL AB SCREEN 2021-08-28 Gordo, Rik Lio [facility] 14:55:00 [facility] MITOCHONDRIAL AB TITER 2021-08-28 Gordo, Rik Vaca [facility] 14:55:00 [facility] MISCELLANEOUS LAB ORDER 2021-08-28 Gordo, Rik Méndezir [facility] 14:10:00 [facility] [id number]\\, SERUM 2021-08-28 Gordo, Rik Méndezir [facility] 14:10:00 [facility] RAPID DRUG SCREEN, URINE 2021-08-28 Gordo, Piyusha Lio [facility] 13:54:00 [facility] POCT-GLUCOSE METER 2021-08-28 Nalam, Nilsa Gladys [facility] 12:20:00 [facility] POCT-GLUCOSE METER 2021-08-28 Nalam, Nilsa Gladys [facility] 08:07:00 [facility] MAGNESIUM 2021-08-[address] [facility] 04:38:00 [facility] COMPREHENSIVE METABOLIC 2021-08-[address] [facility] PANEL 04:38:00 [facility] CBC (HEMOGRAM ONLY) 2021-08-[address] [facility] 04:38:00 [facility] POCT-GLUCOSE METER 2021-08-27 JasielAnn anguloopa Gladys [facility] 22:18:00 [facility] MR ABDOMEN WITHOUT IV 2021-08-27 Gabriel, Nilsa Gladys [facility] CONTRAST MRCP 17:55:00 [facility] MR ABDOMEN WITH & WITHOUT IV 2021-08-27 Gabriel, Nilsa Hallmana [facility] CONTRAST 17:55:00 [facility] MAGNESIUM 2021-08-[address] [facility] 05:38:00 [facility] METABOLIC 2021-08-[address] [facility] PANEL 05:38:00 [facility] CBC (HEMOGRAM ONLY) 2021-08-27 Gabriel Nilsayoly Hallmana [facility] 05:38:00 [facility] URINALYSIS W/ REFLEX URINE 2021-08-[address] [facility] CULTURE 04:24:00 [facility] BLOOD CULTURE 2021-08-[address] [facility] 04:15:00 [facility] BLOOD CULTURE 2021-08-[address] [facility] 01:51:00 [facility] CBC W/PLT COUNT & AUTO 2021-08-[address] [facility] DIFFERENTIAL 01:50:00 [facility] (CELLAVISION MANUAL DIFF) 2021-08-[address] [facility] 01:50:00 [facility] CBC W/PLT COUNT & AUTO 2021-08-[address] [facility] DIFFERENTIAL 01:50:00 [facility] COMPREHENSIVE METABOLIC 2021-08-[address] [facility] PANEL 01:50:00 [facility] MAGNESIUM 2021-08-[address] [facility] 01:50:00 [facility] TRIGLYCERIDES 2021-08-[address] [facility] 01:50:00 [facility] LIPASE 2021-08-[address] [facility] 01:50:00 [facility] PROTHROMBIN TIME/INR 2021-08-[address] [facility] 01:49:00 [facility] IGG SUBCLASS-4 ONLY 2021-08-[address] [facility] 01:49:00 [facility] Gastrostomy [facility] Tracheostomy [facility] External Drainage Pancreatic Andreea via Medical Collection Laparotomy [facility] Medical Appendectomy [facility] Plan of Care Planned Activity [...] Luke s Test 00:00:00 (procedure) [code = [facility] [id number]] Future Scheduled 2024-12-[address] [facility] Test 00:00:00 (procedure) [code = [facility] [id number]] Future Scheduled 2024-12-[address] [facility] Test 00:00:00 (procedure) [code = [facility] [id number]] Future Scheduled 2024-12-[address] [facility] Test 00:00:00 (procedure) [code = [facility] [id number]] Future Scheduled 2024-12-[address] [facility] Test 00:00:00 (procedure) [code = [facility] [id number]] Future Scheduled 2024-12-[address] [facility] Test 00:00:00 (procedure) [code = [facility] [id number]] Future Scheduled 2024-12-[address] [facility] Test 00:00:00 (procedure) [code = [facility] [id number]] Future Scheduled 2024-12-[address] [facility] Test 00:00:00 (procedure) [code = [facility] [id number]] Future Scheduled 2024-12-[address] [facility] Test 00:00:00 (procedure) [code = [facility] [id number]] Future Scheduled 2024-12-[address] [facility] Test 00:00:00 (procedure) [code = [facility] [id number]] Future Scheduled 2024-12-[address] [facility] Test 00:00:00 (procedure) [code = [facility] [id number]] Future Scheduled 2023-01-[address] [facility] Test 00:00:00 (Season Ended) [code = [facility] Center INFLUENZA VACCINE (Season Ended)] Future Scheduled 2023-01-[address] [facility] Test 00:00:00 (Season Ended) [code = Medic al Center INFLUENZA VACCINE (Season Ended)] Future Scheduled 2023-01-[address] [facility] Test 00:00:00 (Season Ended) [code = Medic al Center INFLUENZA VACCINE (Season Ended)] Future Scheduled 2023-01-[address] [facility] Test 00:00:00 (Season Ended) [code = Medic al Center INFLUENZA VACCINE (Season Ended)] Future Scheduled 2023-01-[address] [facility] Test 00:00:00 (Season Ended) [code = Medic al Center INFLUENZA VACCINE (Season Ended)] Future Scheduled 2022-01-18 [...] PPSV23 if available, else PCV20)] Future Scheduled 2021-01-[address] [facility] Test 00:00:00 0-64 YRS (2 - PPSV23 Medical Center if available, else PCV20) [code = PNEUMOCOCCAL VACCINE 0-64 YRS (2 - PPSV23 if available, else PCV20)] Future Scheduled 2021-01-[address] [facility] Test 00:00:00 0-64 YRS (2 - PPSV23 Medical Center if available, else PCV20) [code = PNEUMOCOCCAL VACCINE 0-64 YRS (2 - PPSV23 if available, else PCV20)] Future Scheduled 2021-01-[address] [facility] Test 00:00:00 0-64 YRS (2 - PPSV23 Medical Center if available, else PCV20) [code = PNEUMOCOCCAL VACCINE 0-64 YRS (2 - PPSV23 if available, else PCV20)] Future Scheduled 2021-01-10 PNEUMOCOCCAL VACCINE [facility] [...] Type Clinicians Facility Department ID 2022-06-14 Outpatient AUSTYN JOHNSBAY [id number] [facility] 12:18:07 N WILLARD 2022-06-03 Outpatient 3 VJ CROUCH CVA [id number] [facility] 14:59:09 [facility] [id number] [facility] [place] 2022-05-31 Outpatient 3 [id number] [facility] [id number] [facility] 12:17:08 [facility] [place] 2022-02-21 Outpatient 3 [id number] [facility] REF [id number] [facility] 15:15:18 [facility] [place] 2022-02-09 Outpatient 3 VJ CROUCH CVA [id number] [facility] 10:16:03 [facility]ARD [facility] [place] 2022-02-07 Outpatient 3 VJ CROUCH CVA [id number] [facility] 12:02:45 [facility] [place] 2022-02-06 Outpatient 3 [id number] [facility] RE[facility] [id number] [facility] 12:16:49 [facility] [place] 2021-12-07 [facility] [id number] 00:00:00 Encounter [facility] 2021-10-09 Outpatient 3 TIVJ [facility] [id number] [facility] 10:19:53 [facility] [place] 2021-10-08 Outpatient 3 VJ CROUCH OT [id number] [facility] 16:06:37 [facility] [place] 2021-10-05 Outpatient 3 [id number] [facility] [id number] [facility] 08:52:05 [facility] [place] 2021-10-04 Outpatient 3 [id number] ENC REF [id number] [facility] 08:39:39 [facility] [place] 2021-09-25 Outpatient 3 [id number] ENCSL OT [id number] [facility] 10:41:49 [facility] [place] 2021-09-04 Outpatient 3 [id number] ENCSL REF [id number] [facility] 15:32:58 [facility] [place] 2021-09-04 Outpatient 3 [id number] ENCPL REF [id number] [facility] 08:59:04 041 [facility] [place] 2021-09-02 Outpatient 3 [id number] ENCPL REF [id number] [facility] 11:35:01 041 [facility] [place] 2021-09-01 Outpatient 3 [id number] ENCPL REF [id number] [facility] 14:10:28 0415 [facility] [place] 2022-11-28 2022-11-28 Orders Doctor USMAN [id number] Univers 00:00:00 00:00:00 Only Unassigned, [place] [id number] ity of [place] [facility] [id number] Avelino as [id number] [address] 2022-11-21 2022-11-21 Outpatient SFA SFA [id number] Luis 14:41:56 14:41:56 [id number] Josie Miranda 2022-10-08 2022-10-08 Outpatient [facility]_Tod PRIV PRIV [id number] [facility] 00:00:00 00:00:00 d_J [id number] Medica l 2022-10-08 2022-10-08 Outpatient [facility]_Tod PRIV PRIV [id number] [facility] 00:00:00 00:00:00 d_J [id number] Medica l 2022-09-24 2022-09-24 Outpatient [facility]_Tod PRIV PRIV [id number] [facility] 00:00:00 00:00:00 d_J [id number] Medica l 2022-09-11 2022-09-11 Yash Pacheco [facility] [id number] [facility] 00:00:00 00:00:00 [facility] immanuell : [address] [address] , Ph. 2022-09-06 2022-09-06 Outpatient GC_[facility]_Tod PRIV PRIV [id number] [facility] 00:00:00 00:00:00 d_J [id number] Medica l 2022-09-06 2022-09-06 Outpatient GC_[facility]_Tod PRIV PRIV [id number] [facility] 00:00:00 00:00:00 d_J [id number] Medica l 2022-09-06 2022-09-06 Outpatient GC_[facility]_Tod PRIV PRIV [id number] [facility] 00:00:00 00:00:00 d_J [id number] Medica l 2022-09-06 2022-09-06 Outpatient GC_[facility]_Tod PRIV PRIV [id number] [facility] 00:00:00 00:00:00 d_J [id number] Medica l 2022-09-05 2022-09-05 Outpatient GC_[facility]_Tod PRIV PRIV [id number] [facility] 00:00:00 00:00:00 d_J [id number] Medica l 2022-09-05 2022-09-05 Outpatient GC_BA[facility]_Tod PRIV PRIV [id number] [facility] 00:00:00 00:00:00 d_J [id number] Medica l 2022-09-04 2022-09-04 Outpatient GC_BA[facility]_Tod PRIV PRIV [id number] [facility] 00:00:00 00:00:00 d_J [id number] Medica l 2022-09-04 2022-09-04 Randi [facility] [id number] [facility] 00:00:00 00:00:00 CRISTI Gan: Health - Med ical [address] [address] , Ph. 2022-06-05 2022-06-22 Inpatient 3 VJ CROUCH [id number] [facility] 16:16:00 12:13:00 WILLARD [id number] [facility] [place] 2022-05-26 2022-06-05 Inpatient ER RIA THOMPSON Gastro [id number] SLE[facility]ye 02:16:00 15:28:00 KAYLA 2022-05-26 2022-06-05 Hospital ER Karthik Hsieh [facility] [id number] [facility] 02:16:00 15:28:00 Encounter Vernell Gonzalez, [facility] 2022-05-29 2022-05-29 Telephone Heather [facility] [id number] Univers 00:00:00 00:00:00 Mijares SPECIALTY [id number] ity of [facility] [id number] [facility] AT [phone] Sc jose manuelnm MARILYN[address] 2022-03-16 2022-03-18 Outpatient U JUAN JOSÉ GARCIA [facility] MED [id number] Univers 01:27:00 18:08:00 ity of [facility] 2022-03-16 2022-03-18 [facility] Estrada Sinclair 1.2.84 [id number] Univers 01:27:00 18:08:00 Encounter Juan José Garcia 350.1.13 .10 [facility] 4.2.7.2.686 [place] [id number] [facility] [address] 2022-03-16 2022-03-16 Orders Doctor USMAN [id number] Univers 00:00:00 00:00:00 Only Unassigned, [place] [id number] ity of [place] [facility] [id number] [facility] [id number] [facility] [address] 2022-03-14 2022-03-14 Emergency X SINGER [facility] ERT [id number] Univers 13:27:00 18:30:00 ANETA lovelace of [facility] 2022-03-14 2022-03-14 Emergency Singer [facility] [id number] Univers 13:27:00 18:30:00 Aneta WHATLEY 350.1.13.10 [facility] ALEXEI 4.2.7.2.686 [facility] [phone] [facility] [address] 2022-02-18 2022-03-12 Inpatient ER ABIODUN, [facility] Emergency [id number] [facility] 23:00:00 16:50:00 SILVIO 2022-02-18 2022-03-12 [facility] [id number] 23:00:00 16:50:00 Encounter Silvio Mccray [address] [place] [address] 2022-03-08 2022-03-[address] [facility] [id number] 00:00:00 00:00:00 [facility] 2022-02-11 2022-02-21 Inpatient 3 VJ CROUCH [facility] [id number] [facility] 21:26:00 11:05:00 WILLARD [id number] [facility] [place] 2022-02-20 2022-02-20 Outpatient EL [facility] [id number] [facility] 10:18:00 10:18:00 Willard 69 [facility] 2022-01-25 2022-02-11 Inpatient ER [facility] Surgery [id number] [facility] 04:38:00 21:00:00 [facility] 2022-01-25 2022-02-11 Hospital ER Gricelda Arteaga [facility] [id number] 04:38:00 21:00:00 Encounter Nilsa [facility]ios [facility] Irina Benitez 2022-02-07 2022-02-[address] [facility] [id number] 12:47:00 16:04:00 Event Marck Sterling [facility] 2022-02-07 2022-02-[address] [facility] [id number] 11:56:00 15:22:00 [facility] 2022-02-02 2022-02-02 Surgery Willard, [facility] [id number] 12:00:00 13:00:00 [facility] 2022-02-02 2022-02-02 Anesthesia Jason, [facility] [id number] 11:37:00 12:37:00 Event Millie [facility] 2022-01-25 2022-01-25 Travel [facility] [id number] [facility] 00:00:00 00:00:00 [facility] 2021-12-07 2021-12-25 Inpatient ER MARVA [facility] Emergency [id number] SLE 12:15:00 21:00:00 BETHANY 2021-12-07 2021-12-25 Hospital ER Khushi Ozuna [facility] [id number] 12:15:00 21:00:00 Encounter Bethany Durham abraham [facility] 2021-12-11 2021-12-11 Outside Marva, [facility] [id number] 00:00:00 00:00:00 Orders Bethany Lopez [facility] 2021-12-08 2021-12-08 Travel [facility] [id number] [facility] 00:00:00 00:00:00 [facility] 2021-12-07 2021-12-07 Travel [facility] [id number] [facility] 00:00:00 00:00:00 [facility] 2021-10-10 2021-10-27 Inpatient 3 VJ CROUCH [facility] [id number] [facility] 15:00:00 13:33:00 WILLARD [id number] [facility] [place] 2021-10-23 2021-10-23 Outpatient EL KEAGAN CrouchKW [facility] [id number] [facility] 13:20:00 13:20:00 [facility] 2021-10-20 2021-10-20 Outside [facility], [facility] [id number] 00:00:00 00:00:00 Orders [facility] 2021-10-19 2021-10-19 Outpatient RIA HILARIO [facility] [id number] SLE 00:00:00 00:00:00 [facility] 2021-09-27 2021-10-10 Inpatient ER [facility] Emergency [id number] SLE 17:55:00 14:32:00 [facility] 2021-09-27 2021-10-10 Hospital ER Kimmy Nunn [facility] [id number] [facility] 17:55:00 14:32:00 [facility] 2021-10-10 2021-10-10 Outpatient RIA HILARIO [facility] [id number] SLE 00:00:00 00:00:00 [facility] 2021-10-02 2021-10-[address] [facility] [id number] 17:02:00 19:27:00 Event VickiAry [facility] 2021-10-02 2021-10-02 Surgery [facility], [facility] [id number] 16:30:00 19:12:00 [facility] 2021-09-22 2021-09-27 Inpatient 3 TI VJ ART [id number] [facility] 19:40:00 16:58:00 WILLARD [id number] [facility] [place] 2021-09-27 2021-09-27 Outpatient NICHO Crouch TOÑOW [facility] [id number] [facility] 13:42:00 13:42:00 Willard 14 [facility] 2021-08-25 2021-09-22 Inpatient ER ELI, [facility] Gastro [id number] SLE 23:24:00 18:50:00 IRINA 2021-08-25 2021-09-22 [facility] Mana Aguilar [facility] [id number] 23:24:00 18:50:00 Encounter [facility] Rose Lorenzo, Rebecca [facility] Alok 2021-09-07 2021-09-07 Outpatient CHAPIS OSPINA [id number] Chapis 00:00:00 00:00:00 SAMIM Seybol d 2021-09-01 2021-09-[address] [facility] [id number] 00:00:00 00:00:00 Only [facility] 2021-08-26 2021-08-26 Travel [facility] [id number] [facility] 00:00:00 00:00:00 [facility] Results Test Description Test Time Test Comments Results Result Comments Source TSH, THIRD GENERATION 2022-11-22 06:32:16 Test Item Value Reference Range Interpretation Comme nts TSH, THIRD GENERATION (test code = 2821) 2.010 UIU/ML 0.400-4.100 [id number] 05:42:18 Test Item Value Reference Range Interpretation Comments AMYLASE (test code = 2205) 49 U/L 28-100 [id number] 05:42:18 Test Item Value Reference Range Interpretation Comments LIPASE (test code = 20 U/L 13-60 UNLESS OTHERWISE 2057) INDICATED, ALL TESTING PERFORMED AT [facility] [address] [place] [address] DIRECTOR: Migdalia DUONG SAPNA NUMBER [id number] CAP ACCREDITATION N O. [id number] COMPREHENSIVE METABOLIC [id number] 05:33:57 Test Item Value Reference Range Interpretation Comments GLUCOSE (test code = 89 MG/DL 70-99 2216) BUN (test code = 9 MG/DL 6-20 2207) CREATININE (test 0.66 MG/DL 0.80-1.40 L code = 2214) eGFR (2020 CKD-EPI) 137 >60 (test code = 99035) ML/MIN/1.73 CALC BUN/CREAT (test 14 RATIO 6-28 code = 223) SODIUM (test code = 138 MEQ/L 469-039 0769) POTASSIUM (test code 4.2 MEQ/L 3.5-5.4 = 2227) CHLORIDE (test code 103 MEQ/L 95-107 = 2214) CARBON DIOXIDE (test 21 MEQ/L 19-31 code = 220) CALCIUM (test code = 9.7 MG/DL 8.5-10.5 2208) PROTEIN, TOTAL (test 7.0 G/DL 6.1-8.3 code = 222) ALBUMIN (test code = 4.0 G/DL 3.5-5.2 2200) CALC GLOBULIN (test 3.0 G/DL 1.9-3.7 code = 224) CALC A/G RATIO (test 1.3 RATIO 1.0-2.6 code = 2233) BILIRUBIN, TOTAL 0.4 MG/DL See_Comment [Automated message] (test code = 2206) The syste m which generated this result transmit hernandez reference range : <=1.2. The refe rence range was not u sed to interpret th is result as normal/abnormal . ALKALINE PHOSPHATASE 85 U/L 44-129 (test code = 2203) AST (test code = 11 U/L 9-50 2217) ALT (test code = 6 U/L 5-50 2218) LIPID [id number] 05:33:57 Test Item Value Reference Range Interpretation Comments CHOLESTEROL (test 157 MG/DL <200 code = 2210) TRIGLYCERIDES (test 152 MG/DL <150 H code = 2232) HDL CHOLESTEROL (test 30 MG/DL >39 L code = 2220) CALC LDL CHOL (test 102 MG/DL <100 H NOTE: C ALCULATED LDL code = 2237) IS BASED ON MANUEL-MARTÍNEZ METHOD WHICHINCLUDES ADJUSTABLE TRIGLYCERIDE:VL DL CHOLESTEROL RAT IO.THIS FACTOR VARIES B Y MEASURED TRIGLY CERIDE AND NON-HDLCHOL ESTEROL CONCENTRATIONS WITH INCREASED CALCU LATED LDL SEENIN HIGH ER TRIGLYCERIDE OR LOWER NON-HDL SPECIME NS. FOR MOREINFORMATION , SEE CLIENT ANNOUNCE MENT AT [email or web address] RISK RATIO LDL/HDL 3.40 RATIO <3.55 (test code = 2238) HEMOGLOBIN [id number] 04:39:24 Test Item Value Reference Range Interpretation Comments HEMOGLOBIN A1c (test code = 13659) 5.6 % 4.2-5.6 CBC W/AUTO DIFF WITH [id number] 03:43:20 Test Item Value Reference Range Interpretation Comments WBC (test code = 6.5 K/UL 3.5-11.0 1001) RBC (test code = 5.28 M/UL 4.50-6.10 1002) HEMOGLOBIN (test code 14.0 G/DL 13.5-17.0 = 1003) HEMATOCRIT (test code 40.3 % 40.0-51.0 = 1004) MCV (test code = 76.3 fL 80.0-99.0 L 1005) MCH (test code = 26.5 PG 25.0-33.0 1006) MCHC (test code = 34.7 G/DL 31.0-36.0 1007) RDW (test code = 13.9 % 11.5-15.0 1038) NEUTROPHILS (test 66.8 % code = 1008) LYMPHOCYTES (test 20.7 % code = 1010) MONOCYTES (test code 7.4 % = 1011) EOSINOPHILS (test 3.8 % code = 1012) BASOPHILS (test code 0.8 % = 1013) IMMATURE GRANULOCYTES 0.5 % (test code = 1036) NUCLEATED RBCS (test 0.0 /100 WBC'S See_Comment [Aut omated code = 1065) message] The sy stem which generated this result transmitted reference range : 0.0. The refere nce range was not u sed to interpret th is result as normal/abnormal . PLATELET COUNT (test 487 K/UL 130-400 H code = 1015) ABSOLUTE NEUTROPHILS 4.37 K/UL 1.50-7.50 (test code = 1066) ABSOLUTE LYMPHOCYTES 1.35 K/UL 1.00-4.00 (test code = 1067) ABSOLUTE MONOCYTES 0.48 K/UL 0.20-1.00 (test code = 1068) ABSOLUTE EOSINOPHILS 0.25 K/UL 0.00-0.50 (test code = 1040) ABSOLUTE BASOPHILS 0.05 K/UL 0.00-0.20 (test code = 1069) ABS IMMATURE 0.03 K/UL 0.00-0.10 GRANULOCYTES (test code = 1020) ABS NUCLEATED RBCS 0.00 K/UL 0.00-0.11 (test code = 32605) BLOOD [id number] 13:51:58 Test Item Value Reference Range Interpretation Comments CULTURE (BEAKER) (test No growth in 5 days code = 1095) Specimen received, ordered, and processed during a system downtime event in February 2022MR, ABDOMEN, [id number] 08:01:00Unlisted Reason for Exam - Click Yes and Enter Reason Below->Yes Unlisted Reason for Exam->evaluate pancreas anataomy and look for ductal stone [facility] : 2000 Sex: [...] follow-up imaging is recommended. Signed: Yash Lux MDRep[facility] Verified Date/Time: 06/07/2022 08:01:15 POC-Glucose [id number] 12:08:43 Test Item Value Reference Range Interpretation Comments POC-Glucose Meter (test 131 mg/dL 70-110 H : TE STED AT [facility] code = 1538) [address] [facility], [facility] 30: Pediatrics Physician/Techni dakota ID = [id number] for ERNST SONI Lab Interpretation (test Abnormal code = 72088-6) [facility] [id number] 12:08:43 Test Item Value Reference Range Interpretation Comments POC-Glucose Meter (test 131 mg/dL 70-110 H : TE STED AT [facility] code = 1538) [address] [place] [address], [facility] 30: Pediatrics Physician/Techni dakota ID = [id number] for SONI, ERNST Lab Interpretation (test Abnormal code = 92858-0) [facility] [id number] 12:08:43 Test Item Value Reference Range Interpretation Comments POC-Glucose Meter (test 131 mg/dL 70-110 H : TE STED AT [facility] code = 1538) [address] [place] [address], [facility] 30: Pediatrics Physician/Techni dakota ID = [id number] for SONI, ERNST Lab Interpretation (test Abnormal code = 04889-6) [facility]-Glucose [id number] 12:08:43 Test Item Value Reference Range Interpretation Comments POC-Glucose Meter (test 131 mg/dL 70-110 H : TE STED AT [facility] code = 1538) [address] [place] [address], [facility] 30: Pediatrics Physician/Techni dakota ID = [id number] for SONI, ERNST Lab Interpretation (test Abnormal code = 37530-7) [facility]-Glucose [id number] 12:08:43 Test Item Value Reference Range Interpretation Comments POC-Glucose Meter (test 131 mg/dL 70-110 H : TE STED AT [facility] code = 1538) [address] [place] [address], [facility] 30: Pediatrics Physician/Techni dakota ID = [id number] for SONI, ERNST Lab Interpretation (test Abnormal code = 67889-2) [facility]-Glucose [id number] 12:08:43 Test Item Value Reference Range Interpretation Comments POC-Glucose Meter (test 131 mg/dL 70-110 H : TE STED AT [facility] code = 1538) [address] [place] [address], [facility] 30: Pediatrics Physician/Techni dakota ID = [id number] for SONI, ERNST Lab Interpretation (test Abnormal code = 50786-9) [facility]-Glucose [id number] 12:08:43 Test Item Value Reference Range Interpretation Comments POC-Glucose Meter (test 131 mg/dL 70-110 H : TE STED AT [facility] code = 1538) [address] [place] [address], 770 30: Pediatrics Physician/Techni dakota ID = [id number] for ERNST SONI Lab Interpretation (test Abnormal code = 40216-8) [facility] [id number] 12:08:43 Test Item Value Reference Range Interpretation Comments POC-GLUCOSE METER 131 mg/dL 70-110 H : TESTED A T [facility] 6720 (BEAKER) (test code = [place] [facility], 1538) [address]: Pediatrics Physician/Techni dakota ID = [id number] for ERNST FRANCOIS POCT-GLUCOSE [id number] 09:38:56 Test Item Value Reference Range Interpretation Comments POC-GLUCOSE METER 80 mg/dL 70-110 : TESTED A T [facility] 6720 (BEAKER) (test code = [place] [facility], 1538) 17894: Pediatrics Physician/Techni dakota ID = [id number] for AKSHAT MARCUS ERNST BASIC METABOLIC [id number] 05:35:10 Test Item Value Reference Range Interpretation [...] not appl icable for dialysis patien ts Pediatrics Physician ID - MARIBEL [id number] 05:35:10 Test Item Value Reference Range Interpretation Comments MAGNESIUM (BEAKER) (test code = 1.8 mg/dL 1.6-2.6 627) Pediatrics Physician ID - MARIBEL LCBC W/PLT COUNT & AUTO [id number] 04:43:32 Test Item Value Reference Range Interpretation [...] PERCENT (BEAKER) (test code = 2801) POCT-GLUCOSE [id number] 21:33:25 Test Item Value Reference Range Interpretation Comments POC-GLUCOSE METER 148 mg/dL 70-110 H : TESTED A T [facility] 6720 (BEAKER) (test code = [facility], 1538) 33911: Pediatrics Physician/Techni dakota ID = [id number] for CR ISKARLI, TIA POCT-GLUCOSE [id number] 17:15:25 Test Item Value Reference Range Interpretation Comments POC-GLUCOSE METER 159 mg/dL 70-110 H : TESTED A T [facility] 6720 (BEAKER) (test code = [facility], 1538) 67404: Pediatrics Physician/Techni dakota ID = [id number] for WI LLIS, ERNST POCT-GLUCOSE [id number] 11:58:27 Test Item Value Reference Range Interpretation Comments POC-GLUCOSE METER 117 mg/dL 70-110 H : TESTED A T [facility] 6720 (BEAKER) (test code = [facility], 1538) 35873: Pediatrics Physician/Techni dakota ID = [id number] for [place] LLIS, ERNST POCT-GLUCOSE [id number] 08:28:16 Test Item Value Reference Range Interpretation Comments POC-GLUCOSE METER 75 mg/dL 70-110 : TESTED A T [facility] 6720 (BEAKER) (test code = [facility], 1538) 73891: Pediatrics Physician/Techni dakota ID = [id number] for WILL IS, ERNST [id number] 06:12:35 Test Item Value Reference Range Interpretation Comments MAGNESIUM (BEAKER) (test code = 1.7 mg/dL 1.6-2.6 627) Pediatrics Physician ID - PIAYA LBASIC METABOLIC [id number] 06:12:34 Test Item Value Reference Range Interpretation [...] not appl icable for dialysis patien ts Pediatrics Physician ID - PIAYA LCBC W/PLT COUNT & AUTO [id number] 05:50:40 Test Item Value Reference Range Interpretation [...] PERCENT (BEAKER) (test code = 2801) POCT-GLUCOSE [id number] 22:42:07 Test Item Value Reference Range Interpretation Comments POC-GLUCOSE METER 176 mg/dL 70-110 H : TESTED Daphne Angela [facility] 6720 (BEAKER) (test code = DONNA [place], 1538) 08363: Pediatrics Physician/Techni dakota ID = [id number] for DARCIE DOUGLAS POCT-GLUCOSE [id number] 16:51:57 Test Item Value Reference Range Interpretation Comments POC-GLUCOSE METER 216 mg/dL 70-110 H : TESTED A T [facility] 6720 (BEAKER) (test code [facility], = 1538) 09443: Pediatrics Physician/Techni dakota ID = [id number] for TIMS ROSARIO HERBERT POCT-GLUCOSE [id number] 11:46:18 Test Item Value Reference Range Interpretation Comments POC-GLUCOSE METER 170 mg/dL 70-110 H : TESTED A T [facility] 6720 (BEAKER) (test code [facility], = 1538) 82753: Pediatrics Physician/Techni dakota ID = [id number] for TIMS ONROSARIO POCT-GLUCOSE [id number] 08:09:08 Test Item Value Reference Range Interpretation Comments POC-GLUCOSE METER 85 mg/dL 70-110 : TESTED A T [facility] 6720 (BEAKER) (test code = [place] [facility], 1538) 35861: Pediatrics Physician/Techni dakota ID = [id number] for TIMS ONROSARIO BASIC METABOLIC [id number] 04:52:41 Test Item Value Reference Range Interpretation [...] not appl icable for dialysis patien ts Pediatrics Physician ID - MARIBEL [id number] 04:52:41 Test Item Value Reference Range Interpretation Comments MAGNESIUM (BEAKER) (test code = 1.7 mg/dL 1.6-2.6 627) Pediatrics Physician ID - MARIBEL LCBC W/PLT COUNT & AUTO [id number] 03:58:25 Test Item Value Reference Range Interpretation [...] IMMATURE GRANULOCYTES-RELATIVE 3.90 % 0.00-1.00 H PERCENT ([facility]) (test code = 2801) POCT-GLUCOSE [id number] 21:30:43 Test Item Value Reference Range Interpretation Comments POC-GLUCOSE METER 170 mg/dL 70-110 H : Notified RN/MD: ([facility]) (test code = TESTED AT [place] [address]) [facility], [address]: Pediatrics Physician/Techni dakota ID = [id number] for Tong Cruz POCT-GLUCOSE [id number] 17:00:13 Test Item Value Reference Range Interpretation Comments POC-GLUCOSE METER 218 mg/dL 70-110 H : TESTED A T [facility] 6720 ([facility]) (test code = [facility], 153) 34369: Pediatrics Physician/Techni dakota ID = [id number] for [place]-LANDAVERD E, MARLENY POCT-GLUCOSE [id number] 11:44:53 Test Item Value Reference Range Interpretation Comments POC-GLUCOSE METER 168 mg/dL 70-110 H : [facility]) (test code = [facility], 153) 25635: Pediatrics Physician/Techni dakota ID = [id number] for [place]-LANDAVERD E, MARLENY POCT-GLUCOSE [id number] 07:22:09 Test Item Value Reference Range Interpretation Comments POC-GLUCOSE METER 109 mg/dL 70-110 : [facility] ([facility]) (test code = [facility], 153) 79461: Pediatrics Physician/Techni dakota ID = [id number] for Annabel-LANDAVERD E, MARLENY SARS-CoV2/RT-PCR (Asymptomatic ONLY)2022-06-02 06:51:46 Test Item Value Reference Interpretation Comments Range SARS-COV2/RT-PCR Negative Negative The SARS-Co V-2 (test code = target nucleic 85219-8) acids are not detected in thi s [...] revoked sooner. Fact Sheet for Healthcare Providers: https://www.[employer]/Documents/Xp ert%20Xpress%20SAR S%20CoV-2/Fact%20S heets/302-3802%20S ARS-COV-2%20HEALTH CARE%20PROVIDERS%2 0FACT%20SHEET.pdf Fact Sheet for Healthcare Patients: https://www.[employer]/Documents/Xp ert%20Xpress%20SAR S%20CoV-2/Fact%20S heets/302-3801%20S ARS-COV-2%20PATIEN T%20FACT%20SHEET.p df Lab Interpretation Normal (test code = 96801-7) [facility]2022-06-02 06:51:46 Test Item Value Reference Interpretation Comments Range SARS-COV2/RT-PCR Negative Negative The SARS-Co V-2 (test code = target nucleic 19889-6) acids are not detected in thi s [...] revoked sooner. Fact Sheet for Healthcare Providers: https://www.[employer]/Documents/Xp ert%20Xpress%20SAR S%20CoV-2/Fact%20S heets/302-3802%20S ARS-COV-2%20HEALTH CARE%20PROVIDERS%2 0FACT%20SHEET.pdf Fact Sheet for Healthcare Patients: https://www.[employer]/Documents/Xp ert%20Xpress%20SAR S%20CoV-2/Fact%20S heets/302-3801%20S ARS-COV-2%20PATIEN T%20FACT%20SHEET.p df Lab Interpretation Normal (test code = 96597-4) [facility]Asymptomatic ONLY[facility]2022-06-02 06:51:46 Test Item Value Reference Interpretation Comments Range SARS-COV2/RT-PCR Negative Negative The SARS-Co V-2 (test code = target nucleic 99187-2) acids are not detected in thi s [...] rapid, real-jossue e RT-PCR test intended for e qualitative detection of nucleic acid fr [...] revoked sooner. Fact Sheet for Healthcare Providers: https://www.[employer]/Documents/Xp ert%20Xpress%20SAR S%20CoV-2/Fact%20S heets/302-3802%20S ARS-COV-2%20HEALTH CARE%20PROVIDERS%2 0FACT%20SHEET.pdf Fact Sheet for Healthcare Patients: https://www.[employer]/Documents/Xp ert%20Xpress%20SAR S%20CoV-2/Fact%20S heets/302-3801%20S ARS-COV-2%20PATIEN T%20FACT%20SHEET.p df Lab Interpretation Normal (test code = 59484-8) [facility]As[facility]omatic [facility]2022-06-02 06:51:46 Test Item Value Reference Interpretation Comments Range SARS-COV2/RT-PCR Negative Negative The SARS-Co V-2 (test code = target nucleic 14147-4) acids are not detected in thi s [...] revoked sooner. Fact Sheet for Healthcare Providers: https://www.[employer]/Documents/Xp ert%20Xpress%20SAR S%20CoV-2/Fact%20S heets/302-3802%20S ARS-COV-2%20HEALTH CARE%20PROVIDERS%2 0FACT%20SHEET.pdf Fact Sheet for Healthcare Patients: https://www.[employer]/Documents/Xp ert%20Xpress%20SAR S%20CoV-2/Fact%20S heets/302-3801%20S ARS-COV-2%20PATIEN T%20FACT%20SHEET.p df Lab Interpretation Normal (test code = 26395-6) [facility]As[facility]omatic ONLY)2022-06-02 06:51:46 Test Item Value Reference Interpretation Comments Range SARS-COV2/RT-PCR Negative Negative The SARS-Co V-2 (test code = target nucleic 86271-1) acids are not detected in thi s [...] revoked sooner. Fact Sheet for Healthcare Providers: https://www.[employer]/Documents/Xp ert%20Xpress%20SAR S%20CoV-2/Fact%20S heets/302-3802%20S ARS-COV-2%20HEALTH CARE%20PROVIDERS%2 0FACT%20SHEET.pdf Fact Sheet for Healthcare Patients: https://www.[employer]/Documents/Xp ert%20Xpress%20SAR S%20CoV-2/Fact%20S heets/302-3801%20S ARS-COV-2%20PATIEN T%20FACT%20SHEET.p df Lab Interpretation Normal (test code = 26360-4) [facility]As[facility]omatic ONLY)2022-06-02 06:51:46 Test Item Value Reference Interpretation Comments Range SARS-COV2/RT-PCR Negative Negative The SARS-Co V-2 (test code = target nucleic 44227-2) acids are not detected in thi s [...] revoked sooner. Fact Sheet for Healthcare Providers: https://www.[employer]/Documents/Xp ert%20Xpress%20SAR S%20CoV-2/Fact%20S heets/302-3802%20S ARS-COV-2%20HEALTH CARE%20PROVIDERS%2 0FACT%20SHEET.pdf Fact Sheet for Healthcare Patients: https://www.[employer]/Documents/Xp ert%20Xpress%20SAR S%20CoV-2/Fact%20S heets/302-3801%20S ARS-COV-2%20PATIEN T%20FACT%20SHEET.p df Lab Interpretation Normal (test code = 54317-4) [facility]As[facility]omatic [facility])2022-06-02 06:51:46 Test Item Value Reference Interpretation Comments Range SARS-COV2/RT-PCR Negative Negative The SARS-Co V-2 (test code = target nucleic 23539-3) acids are not detected in thi s [...] revoked sooner. Fact Sheet for Healthcare Providers: https://www.[employer]/Documents/Xp ert%20Xpress%20SAR S%20CoV-2/Fact%20S heets/302-3802%20S ARS-COV-2%20HEALTH CARE%20PROVIDERS%2 0FACT%20SHEET.pdf Fact Sheet for Healthcare Patients: https://www.[employer]/Documents/Xp ert%20Xpress%20SAR S%20CoV-2/Fact%20S heets/302-3801%20S ARS-COV-2%20PATIEN T%20FACT%20SHEET.p df Lab Interpretation Normal (test code = 55633-8) [facility])2022-06-02 06:51:46 Test Item Value Reference Range Interpretation Comments SARS-COV2/RT-PCR Negative Negative The SARS-Co V-2 target (test code = nucleic acids a re not 6453358) detected in thi s specimen. Negative result [...] revoked sooner. Fact Sheet for Healthcare Providers: https://www.[employer]/Documents/Xpert%20Xpress%20SARS%20CoV-2/Fact%20Sheets/302-3802%98WZDV-IJV-1%20 HEALTHCARE%20PROVIDERS%20FACT%20SHEET.pdf Fact Sheet for Healthcare Patients: https://www.[employer]/Documents/Xpert%20Xp ress%20SARS%20CoV-2/Fact%20Sheets/302-3801%84NPTP-BST-9%20PATIENT%20FACT%20SHEET .pdfBAFLEMING COUNTY HOSPITAL METABOLIC [id number] 02:48:57 Test Item Value Reference Range Interpretation [...] not appl icable for dialysis patien ts Pediatrics Physician ID - [id number] 02:48:57 Test Item Value Reference Range Interpretation Comments MAGNESIUM (BEAKER) (test code = 1.8 mg/dL 1.6-2.6 627) Pediatrics Physician ID - MARCOCBC W/PLT COUNT & AUTO [id number] 02:28:38 Test Item Value Reference Range Interpretation [...] PERCENT (BEAKER) (test code = 2801) POCT-GLUCOSE [id number] 02:24:01 Test Item Value Reference Range Interpretation Comments POC-GLUCOSE METER 129 mg/dL 70-110 H : TESTED A T [facility] 6720 (BEAKER) (test code = [place] [facility], 1538) [address]: Pediatrics Physician/Techni dakota ID = [id number] for Ri maryann, Luis Felipe CT, [id number] 14:42:00Unlisted Reason for Exam - Click Yes and Enter Reason Below->YesUnlisted Reason for Exam->pancreatitis and increasing WBC countProtocol Please Specify:->Standard ProtocolWill this procedure require oral contrast?->No [facility]ame: YAMILE VANGIE : 2000 Sex: MFINAL REPORT CT, ABDOMEN [...] Signed: Felicity Novak Verified Date/Time: 06/01/2022 14:42:56 Jelly ctronically signed by: FELICITY NOVAK MD on 06/01/2022 02:42 PMPOCT-GLUCOSE [id number] 12:02:13 Test Item Value Reference Range Interpretation Comments POC-GLUCOSE METER 159 mg/dL 70-110 H : TESTED A T [facility] 6720 (BEAKER) (test code = [place] [facility], 1538) [address]: Pediatrics Physician/Techni dakota ID = [id number] for MARLENY Calderon POCT-GLUCOSE [id number] 07:56:29 Test Item Value Reference Range Interpretation Comments POC-GLUCOSE METER 92 mg/dL 70-110 : TESTED A T [facility] 6720 (BEAKER) (test code = [place], 1538) [address]: Pediatrics Physician/Techni dakota ID = [id number] for Annabel-MARLENY TORRES [id number] 04:25:00 Test Item Value Reference Range Interpretation Comments MAGNESIUM (BEAKER) (test code = 1.7 mg/dL 1.6-2.6 627) Pediatrics Physician ID - MARIBEL LBASIC METABOLIC [id number] 04:24:59 Test Item Value Reference Range Interpretation [...] not appl icable for dialysis patien ts Pediatrics Physician ID - PIAYA LCBC W/PLT COUNT & AUTO [id number] 04:11:26 Test Item Value Reference Range Interpretation [...] PERCENT (BEAKER) (test code = 2801) POCT-GLUCOSE [id number] 22:38:25 Test Item Value Reference Range Interpretation Comments POC-GLUCOSE METER 197 mg/dL 70-110 H : TESTED A T [facility] 6720 (BEAKER) (test code = [facility], 1538) 42011: Pediatrics Physician/Techni dakota ID = [id number] for VIOLETA RODGERS POCT-GLUCOSE [id number] 16:23:37 Test Item Value Reference Range Interpretation Comments POC-GLUCOSE METER 244 mg/dL 70-110 H : TESTED A T [facility] 6720 (BEAKER) (test code = [facility], 1538) 74698: Pediatrics Physician/Techni dakota ID = [id number] for QUEEN HONEYCUTT POCT-GLUCOSE [id number] 11:36:41 Test Item Value Reference Range Interpretation Comments POC-GLUCOSE METER 177 mg/dL 70-110 H : TESTED A T [facility] 6720 (BEAKER) (test code = [facility], 1538) 91189: Pediatrics Physician/Techni dakota ID = [id number] for QUEEN HONEYCUTT POCT-GLUCOSE [id number] 07:17:56 Test Item Value Reference Range Interpretation Comments POC-GLUCOSE METER 83 mg/dL 70-110 : TESTED A T [facility] 6720 (BEAKER) (test code = [facility], 1538) 17919: Pediatrics Physician/Techni dakota ID = [id number] for QUEEN JACOBSEN [id number] 06:02:08 Test Item Value Reference Range Interpretation Comments MAGNESIUM (BEAKER) (test code = 2.2 mg/dL 1.6-2.6 627) Pediatrics Physician ID - MARCOBASIC METABOLIC [id number] 06:02:07 Test Item Value Reference Range Interpretation [...] not appl icable for dialysis patien ts Pediatrics Physician ID - MARCOCBC W/PLT COUNT & AUTO [id number] 05:47:08 Test Item Value Reference Range Interpretation [...] (BEAKER) (test code = 2801) Creatinine, random [id number] 02:28:59 Test Item Value Reference Range Interpretation Comments Creatinine, Ur 65.7 mg/dL (test code = 2161-8) IDALIA (test code = Reference Range: No IDALIA) NormalsOperator ID - ADMIN [facility], random [id number] 02:28:59 Test Item Value Reference Range Interpretation Comments Creatinine, Ur 65.7 mg/dL (test code = 2161-8) IDALIA (test code = Reference Range: No IDALIA) NormalsOperator ID - ADMIN [facility] CenterCreatinine, random [id number] 02:28:59 Test Item Value Reference Range Interpretation Comments Creatinine, Ur 65.7 mg/dL (test code = 2161-8) IDALIA (test code = Reference Range: No IDALIA) NormalsOperator ID - ADMIN [facility] CenterCreatinine, random [id number] 02:28:59 Test Item Value Reference Range Interpretation Comments Creatinine, Ur 65.7 mg/dL (test code = 2161-8) IDALIA (test code = Reference Range: No IDALIA) NormalsOperator ID - ADMIN [facility] clinicine, random [id number] 02:28:59 Test Item Value Reference Range Interpretation Comments Creatinine, Ur 65.7 mg/dL (test code = 2161-8) IDALIA (test code = Reference Range: No IDALIA) NormalsOperator ID - ADMIN [facility] CenterCrec[facility] clinicine, random [id number] 02:28:59 Test Item Value Reference Range Interpretation Comments Creatinine, Ur 65.7 mg/dL (test code = 2161-8) IDALIA (test code = Reference Range: No IDALIA) NormalsOperator ID - ADMIN [facility] CenterCrec[facility] clinicine, random [id number] 02:28:59 Test Item Value Reference Range Interpretation Comments Creatinine, Ur 65.7 mg/dL (test code = 216-8) IDALIA (test code = Reference Range: No IDALIA) NormalsOperator ID - ADMIN [facility] CenterCREAB[facility]INE, RANDOM [id number] 02:28:59 Test Item Value Reference Range Interpretation Comments CREATININE URINE (GENEVA) (test 65.7 mg/dL code = 375) Reference Range: No NormalsOperator ID - ADMINPOCT-GLUCOSE [id number] 20:53:28 Test Item Value Reference Range Interpretation Comments POC-GLUCOSE METER 180 mg/dL 70-110 H : Notified RN/MD: ([facility] (test code = TESTED AT [facility] 6720 1538) [place] [facility], [address]: Pediatrics Physician/Techni dakota ID = [id number] for Tong Cruz POCT-GLUCOSE [id number] 16:07:58 Test Item Value Reference Range Interpretation Comments POC-GLUCOSE METER 217 mg/dL 70-110 H : [facility] ([facility]) (test code = [place] [facility], 153) [address]: Pediatrics Physician/Techni dakota ID = [id number] for DELMAR COOPER POCT-GLUCOSE [id number] 11:07:00 Test Item Value Reference Range Interpretation Comments POC-GLUCOSE METER 151 mg/dL 70-110 H : TESTED A T [facility] 6720 ([facility] (test code = [place] [facility], 1538) [address]: Pediatrics Physician/Techni dakota ID = [id number] for QUEEN HONEYCUTT POCT-GLUCOSE [id number] 08:04:04 Test Item Value Reference Range Interpretation Comments POC-GLUCOSE METER 91 mg/dL 70-110 : TESTED A T [facility] 6720 (BEAKER) (test code = [place] [facility], 1538) [address]: Pediatrics Physician/Techni dakota ID = [id number] for AKSHAT RANDALL CELESTINE BASIC METABOLIC [id number] 05:08:46 Test Item Value Reference Range Interpretation [...] not appl icable for dialysis patien ts Pediatrics Physician ID - BISI [id number] 05:08:45 Test Item Value Reference Range Interpretation Comments MAGNESIUM (BEAKER) 1.7 mg/dL 1.6-2.6 Specimen slightly (test code = 627) hemolyzed Pediatrics Physician ID - BISI GCBC W/PLT COUNT & AUTO [id number] 04:29:02 Test Item Value Reference Range Interpretation [...] PERCENT (BEAKER) (test code = 2801) POCT-GLUCOSE [id number] 22:44:30 Test Item Value Reference Range Interpretation Comments POC-GLUCOSE METER 160 mg/dL 70-110 H : TESTED A T [facility] 6720 (BEAKER) (test code = [place] [facility], 1538) [address]: Pediatrics Physician/Techni dakota ID = [id number] for Alannah Acevedo Protein, random [id number] 18:00:01 Test Item Value Reference Range Interpretation Comments Protein, Urine (test code = 11 mg/dL 0-14 2888-6) IDALIA (test code = IDALIA) Pediatrics Physician ID - BS Lab Interpretation (test Normal code = 43653-2) [facility] [id number] 18:00:01 Test Item Value Reference Range Interpretation Comments Protein, Urine (test code = 11 mg/dL 0-14 2888-6) IDALIA (test code = IDALIA) Pediatrics Physician ID - BS Lab Interpretation (test Normal code = 21385-0) [facility] [id number] 18:00:01 Test Item Value Reference Range Interpretation Comments Protein, Urine (test code = 11 mg/dL 0-14 2888-6) IDALIA (test code = IDALIA) Pediatrics Physician ID - BS Lab Interpretation (test Normal code = 53619-1) [facility] [id number] 18:00:01 Test Item Value Reference Range Interpretation Comments Protein, Urine (test code = 11 mg/dL 0-14 2888-6) IDALIA (test code = IDALIA) Pediatrics Physician ID - BS Lab Interpretation (test Normal code = 80543-4) [facility] [id number] 18:00:01 Test Item Value Reference Range Interpretation Comments Protein, Urine (test code = 11 mg/dL 0-14 2888-6) IDALIA (test code = IDALIA) Pediatrics Physician ID - BS Lab Interpretation (test Normal code = 95130-2) [facility] [id number] 18:00:01 Test Item Value Reference Range Interpretation Comments Protein, Urine (test code = 11 mg/dL 0-14 2888-6) IDALIA (test code = IDALIA) Pediatrics Physician ID - BS Lab Interpretation (test Normal code = 90174-0) [facility] [id number] 18:00:01 Test Item Value Reference Range Interpretation Comments Protein, Urine (test code = 11 mg/dL 0-14 2888-6) IDALIA (test code = IDALIA) Pediatrics Physician ID - BS Lab Interpretation (test Normal code = 58510-2) [facility] RANDOM [id number] 18:00:01 Test Item Value Reference Range Interpretation Comments PROTEIN, URINE (BEAKER) (test code = 11 mg/dL 0-14 1569) Pediatrics Physician ID - BSANA TITER AND [id number] 14:11:35 Test Item Value Reference Range Interpretation Comments STU TITER (BEAKER) (test code = :640 1541) STU PATTERN (BEAKER) (test code = Homogeneous 1781) ANTI-NUCLEAR ANTIBODY (STU)2022-05-29 14:11:23 Test Item Value Reference Range Interpretation Comments ANTI-NUCLEAR ANTIBODY (STU) (BEAKER) Positive Negative A (test code = 418) Test performed by IFA method.ANTI-DNA [id number] 14:09:38 Test Item Value Reference Range Interpretation Comments ANTI-DNA TITER (BEAKER) (test code = :32 1553) DOUBLE-STRANDED DNA (DSDNA) [id number] 14:09:32 Test Item Value Reference Range Interpretation Comments ANTI-DNA DS (BEAKER) (test code = Positive Negative 1055) BASIC METABOLIC [id number] 05:45:43 Test Item Value Reference Range Interpretation [...] not appl icable for dialysis patien ts Pediatrics Physician ID - MARIBEL [id number] 05:45:43 Test Item Value Reference Range Interpretation Comments MAGNESIUM (BEAKER) (test code = 1.5 mg/dL 1.6-2.6 L 627) Pediatrics Physician ID - MARIBEL LCBC W/PLT COUNT & AUTO [id number] 05:11:51 Test Item Value Reference Range Interpretation [...] PERCENT (BEAKER) (test code = 2801) POCT-GLUCOSE [id number] 22:42:09 Test Item Value Reference Range Interpretation Comments POC-GLUCOSE METER 250 mg/dL 70-110 H : Notified RN/MD: ([facility]) (test code = TESTED AT [facility] 1277 4778) [facility], [address]: Pediatrics Physician/Techni dakota ID = [id number] for Tong Cruz HEMOGLOBIN [id number] 09:55:38 Test Item Value Reference Range Interpretation Comments HEMOGLOBIN A1C 5.1 % See_Comment [Automated m essage] ELECTROPHORESIS ([facility]) The system which (test code = 3811) generated this result transmitted ref erence range: <=5.6%. The reference range was not used to int erpret this result as normal/abnormal . "The A1c is measured using a NGSP-certified method. HbA1c value equal to or greater than 6.5% as thediagnosis cutoff for diabetes. An HbA1c value of 5.7- 6.4% indicates increased risk for diabetes (prediabetes)."Pediatrics Physician ID - ADM [id number] 05:19:29 Test Item Value Reference Range Interpretation Comments MAGNESIUM (BEAKER) (test code = 1.6 mg/dL 1.6-2.6 627) Pediatrics Physician ID - MARCOBASIC METABOLIC [id number] 05:19:28 Test Item Value Reference Range Interpretation [...] is not as accur ate as Creatinine Kair harrison in predicting glom erular filtration rate . Estimated GFR is not appl icable for dialysis patien ts Pediatrics Physician ID - MARCOCBC W/PLT COUNT & AUTO [id number] 05:08:02 Test Item Value Reference Range Interpretation [...] PERCENT (BEAKER) (test code = 2801) POCT-GLUCOSE [id number] 20:55:40 Test Item Value Reference Range Interpretation Comments POC-GLUCOSE METER 188 mg/dL 70-110 H : TESTED A T [facility] 6720 (BEAKER) (test code = [facility], 1538) [address]: Pediatrics Physician/Techni dakota ID = [id number] for VIOLETA RODGERS POCT-GLUCOSE [id number] 16:38:41 Test Item Value Reference Range Interpretation Comments POC-GLUCOSE METER 186 mg/dL 70-110 H : TESTED A T [facility] 6720 (BEAKER) (test code = [facility], 1538) [address]: Pediatrics Physician/Techni dakota ID = [id number] for QUEEN HONEYCUTT POCT-GLUCOSE [id number] 11:08:21 Test Item Value Reference Range Interpretation Comments POC-GLUCOSE METER 143 mg/dL 70-110 H : TESTED A T [facility] 6720 (BEAKER) (test code = [facility], 1538) [address]: Pediatrics Physician/Techni dakota ID = [id number] for QUEEN HONEYCUTT POCT-GLUCOSE [id number] 07:08:50 Test Item Value Reference Range Interpretation Comments POC-GLUCOSE METER 168 mg/dL 70-110 H : TESTED A T [facility] 6720 (BEAKER) (test code = [facility], 1538) [address]: Pediatrics Physician/Techni dakota ID = [id number] for QUEEN HONEYCUTT BASIC METABOLIC [id number] 04:24:26 Test Item Value Reference Range Interpretation [...] not appl icable for dialysis patien ts Pediatrics Physician ID - [id number] 04:24:26 Test Item Value Reference Range Interpretation Comments MAGNESIUM (BEAKER) (test code = 1.5 mg/dL 1.6-2.6 L 627) Pediatrics Physician ID - [id number] 04:24:26 Test Item Value Reference Range Interpretation Comments PHOSPHORUS (BEAKER) (test code = 3.1 mg/dL 2.3-4.7 604) Pediatrics Physician ID - MARCOCBC W/PLT COUNT & AUTO [id number] 04:14:14 Test Item Value Reference Range Interpretation [...] PERCENT (BEAKER) (test code = 2801) POCT-GLUCOSE [id number] 21:34:17 Test Item Value Reference Range Interpretation Comments POC-GLUCOSE METER 252 mg/dL 70-110 H : TESTED A T [facility] 6720 (BEAKER) (test code = [place] [facility], 1538) [address]: Pediatrics Physician/Techni dakota ID = [id number] for VIOLETA RODGERS U/S, ABDOMINAL, [id number] 17:51:00Abdomen limited area? Add comment if clarification is needed.->Gallbladder Reason for exam:->acute on chronic pancreatitis, never had ultrasound please assess for gallstones, [facility] : 2000 Sex: MFINAL REPORT U/S, ABDOMINAL, LIMITED CLINICAL HISTORY: acute on chronic pancreatitis, never had ultrasound please assess for gallstones, thank you Comparison: CT of the abdomen and lmyvrd9503/11/2022 TECHNIQUE: Real time grayscale and color Doppler [...] upper quadrant abdominal ultrasound. Signed: Cira Dorado MDReport Verified Date/Time: 05/26/2022 17:51:31 Reading Location: [address] Reading Room POCT-GLUCOSE [id number] 16:35:02 Test Item Value Reference Range Interpretation Comments POC-GLUCOSE METER 122 mg/dL 70-110 H : TESTED A T [facility] 6720 ([employer]) (test code = [facility], 1538) [address]: Pediatrics Physician/Techni dakota ID = [id number] for [place] LLIAMS, BAEZ POCT-GLUCOSE [id number] 12:55:26 Test Item Value Reference Range Interpretation Comments POC-GLUCOSE METER 104 mg/dL 70-110 : TESTED A T [facility] 6720 ([facility] (test code = [facility], 1538) [address]: Pediatrics Physician/Techni dakota ID = [id number] for [place] LLIAMS, BAEZ Urinalysis w/Detobruwyrr5137-63-55 12:00:56 Test Item Value Reference Range Interpretation Comments Color, UA (test code Yellow = 5778-6) Clarity, UA (test Clear code = 5767-9) Specific [place], UA 1.030 1.001-1.035 (test code = 5811-5) pH, UA (test code = 5.5 5.0-8.0 5803-2) Protein, UA (test 30 mg/dL Negative A code = 26824-6) Glucose, UA (test Negative Negative code = 365) Ketones, UA (test Negative Negative code = 2514-8) Bilirubin, UA (test Negative Negative code = 17212-8) Blood, UA (test code Moderate Negative A = 17887-9) Nitrite, UA (test Negative Negative code = 5802-4) Leukocytes, UA (test Negative Negative code = 5799-2) Urobilinogen, UA 0.2 0.2-1.0 (test code = 48372-6) RBC, UA (test code = 6 See_Comment [Autom ated 09460-0) message] The system which generated this result [...] 1 See_Comment [Automate d (test code = 41129-2) messag e] The system which generated this result transmit hernandez reference range : /LPF. The reference range was not used to interpret this result as normal/abnormal . Specimen Source (test Urine, Clean code = 2795) Catch IDALIA (test code = IDALIA) Pediatrics Physician ID - [auto]Pediatrics Physician ID - tech Lab Interpretation Abnormal (test code = 12877-5) [facility]/[id number] 12:00:56 Test Item Value Reference Range Interpretation Comments Color, UA (test code Yellow = 5778-6) Clarity, UA (test Clear code = 5767-9) Specific [place], UA 1.030 1.001-1.035 (test code = 5811-5) pH, UA (test code = 5.5 5.0-8.0 5803-2) Protein, UA (test 30 mg/dL Negative A code = 41074-6) Glucose, UA (test Negative Negative code = 365) Ketones, UA (test Negative Negative code = 2514-8) Bilirubin, UA (test Negative Negative code = 92146-7) Blood, UA (test code Moderate Negative A = 61640-5) Nitrite, UA (test Negative Negative code = 5802-4) Leukocytes, UA (test Negative Negative code = 5799-2) Urobilinogen, UA 0.2 0.2-1.0 (test code = 78415-4) RBC, UA (test code = 6 See_Comment [Autom ated 24419-9) message] The system which generated this result [...] 1 See_Comment [Automate d (test code = 34838-8) messag e] The system which generated this result transmit hernandez reference range : /LPF. The reference range was not used to interpret this result as normal/abnormal . Specimen Source (test Urine, Clean code = 2795) Catch IDALIA (test code = IDALIA) Pediatrics Physician ID - [auto]Pediatrics Physician ID - tech Lab Interpretation Abnormal (test code = 14771-6) [facility]/Dllzrjjmfqs1857-36-94 12:00:56 Test Item Value Reference Range Interpretation Comments Color, UA (test code Yellow = 5778-6) Clarity, UA (test Clear code = 5767-9) Specific [place], UA 1.030 1.001-1.035 (test code = 5811-5) pH, UA (test code = 5.5 5.0-8.0 5803-2) Protein, UA (test 30 mg/dL Negative A code = 79838-3) Glucose, UA (test Negative Negative code = 365) Ketones, UA (test Negative Negative code = 2514-8) Bilirubin, UA (test Negative Negative code = 20329-0) Blood, UA (test code Moderate Negative A = 86484-9) Nitrite, UA (test Negative Negative code = 5802-4) Leukocytes, UA (test Negative Negative code = 5799-2) Urobilinogen, UA 0.2 0.2-1.0 (test code = 20157-1) RBC, UA (test code = 6 See_Comment [Autom ated 11024-1) message] The system which generated this result [...] 1 See_Comment [Automate d (test code = 93736-4) messag e] The system which generated this result transmit hernandez reference range : /LPF. The reference range was not used to interpret this result as normal/abnormal . Specimen Source (test Urine, Clean code = 2795) Catch IDALIA (test code = IDALIA) Pediatrics Physician ID - [auto]Pediatrics Physician ID - tech Lab Interpretation Abnormal (test code = 72266-2) [facility]/Jrixbznxsjv5356-11-65 12:00:56 Test Item Value Reference Range Interpretation Comments Color, UA (test code Yellow = 5778-6) Clarity, UA (test Clear code = 5767-9) Specific [place], UA 1.030 1.001-1.035 (test code = 5811-5) pH, UA (test code = 5.5 5.0-8.0 5803-2) Protein, UA (test 30 mg/dL Negative A code = 59129-0) Glucose, UA (test Negative Negative code = 365) Ketones, UA (test Negative Negative code = 2514-8) Bilirubin, UA (test Negative Negative code = 56053-4) Blood, UA (test code Moderate Negative A = 19019-2) Nitrite, UA (test Negative Negative code = 5802-4) Leukocytes, UA (test Negative Negative code = 5799-2) Urobilinogen, UA 0.2 0.2-1.0 (test code = 01390-9) RBC, UA (test code = 6 See_Comment [Autom ated 91027-4) message] The system which generated this result [...] 1 See_Comment [Automate d (test code = 25339-2) messag e] The system which generated this result transmit hernandez reference range : /LPF. The reference range was not used to interpret this result as normal/abnormal . Specimen Source (test Urine, Clean code = 2795) Catch IDALIA (test code = IDALIA) Pediatrics Physician ID - [auto]Pediatrics Physician ID - tech Lab Interpretation Abnormal (test code = 20082-3) [facility]/Ypqrymlewfd6521-84-57 12:00:56 Test Item Value Reference Range Interpretation Comments Color, UA (test code Yellow = 5778-6) Clarity, UA (test Clear code = 5767-9) Specific [place], UA 1.030 1.001-1.035 (test code = 5811-5) pH, UA (test code = 5.5 5.0-8.0 5803-2) Protein, UA (test 30 mg/dL Negative A code = 54961-5) Glucose, UA (test Negative Negative code = 365) Ketones, UA (test Negative Negative code = 2514-8) Bilirubin, UA (test Negative Negative code = 65801-6) Blood, UA (test code Moderate Negative A = 71757-5) Nitrite, UA (test Negative Negative code = 5802-4) Leukocytes, UA (test Negative Negative code = 5799-2) Urobilinogen, UA 0.2 0.2-1.0 (test code = 48793-6) RBC, UA (test code = 6 See_Comment [Autom ated 15636-2) message] The system which generated this result [...] 1 See_Comment [Automate d (test code = 28693-0) messag e] The system which generated this result transmit hernandez reference range : /LPF. The reference range was not used to interpret this result as normal/abnormal . Specimen Source (test Urine, Clean code = 2795) Catch IDALIA (test code = IDALIA) Pediatrics Physician ID - [auto]Pediatrics Physician ID - tech Lab Interpretation Abnormal (test code = 51833-9) [facility]/Qwdnejrjhba2249-89-22 12:00:56 Test Item Value Reference Range Interpretation Comments Color, UA (test code Yellow = 5778-6) Clarity, UA (test Clear code = 5767-9) Specific [place], UA 1.030 1.001-1.035 (test code = 5811-5) pH, UA (test code = 5.5 5.0-8.0 5803-2) Protein, UA (test 30 mg/dL Negative A code = 44423-4) Glucose, UA (test Negative Negative code = 365) Ketones, UA (test Negative Negative code = 2514-8) Bilirubin, UA (test Negative Negative code = 34949-7) Blood, UA (test code Moderate Negative A = 10012-3) Nitrite, UA (test Negative Negative code = 5802-4) Leukocytes, UA (test Negative Negative code = 5799-2) Urobilinogen, UA 0.2 0.2-1.0 (test code = 44165-2) RBC, UA (test code = 6 See_Comment [Autom ated 51311-9) message] The system which generated this result [...] 1 See_Comment [Automate d (test code = 76490-2) messag e] The system which generated this result transmit hernandez reference range : /LPF. The reference range was not used to interpret this result as normal/abnormal . Specimen Source (test Urine, Clean code = 2795) Catch IDALIA (test code = IDALIA) Pediatrics Physician ID - [auto]Pediatrics Physician ID - tech Lab Interpretation Abnormal (test code = 87082-2) [facility]/Mnyvjbbwpco7734-51-38 12:00:56 Test Item Value Reference Range Interpretation Comments Color, UA (test code Yellow = 5778-6) Clarity, UA (test Clear code = 5767-9) Specific [place], UA 1.030 1.001-1.035 (test code = 5811-5) pH, UA (test code = 5.5 5.0-8.0 5803-2) Protein, UA (test 30 mg/dL Negative A code = 86008-3) Glucose, UA (test Negative Negative code = 365) Ketones, UA (test Negative Negative code = 2514-8) Bilirubin, UA (test Negative Negative code = 04918-8) Blood, UA (test code Moderate Negative A = 99215-3) Nitrite, UA (test Negative Negative code = 5802-4) Leukocytes, UA (test Negative Negative code = 5799-2) Urobilinogen, UA 0.2 0.2-1.0 (test code = 78453-0) RBC, UA (test code = 6 See_Comment [Autom ated 69035-9) message] The system which generated this result [...] 1 See_Comment [Automate d (test code = 55805-5) messag e] The system which generated this result transmit hernandez reference range : /LPF. The reference range was not used to interpret this result as normal/abnormal . Specimen Source (test Urine, Clean code = 2795) Catch IDALIA (test code = IDALIA) Pediatrics Physician ID - [auto]Pediatrics Physician ID - tech Lab Interpretation Abnormal (test code = 05635-4) [facility]/ [id number] 12:00:56 Test Item Value Reference Range Interpretation [...] SOURCE(BEAKER) (test code Urine, Clean Catch = 0035) Pediatrics Physician ID - [auto]Pediatrics Physician ID - techCOMPREHENSIVE METABOLIC [id number] 11:24:00 Test Item Value Reference Range Interpretation [...] not appl icable for dialysis patien ts Pediatrics Physician ID - PIAYA LSARS-COV2/RT-PCR ([facility])2022-05-26 11:16:02 Test Item Value Reference Range Interpretation Comments SARS-COV2/RT-PCR Negative Negative The SARS-Co V-2 target (test code = nucleic acids a re not 6522097) detected in thi s specimen. Negative result [...] revoked sooner. Fact Sheet for Healthcare Providers: https://www.[employer]/Documents/Xpert%20Xpress%20SARS%20CoV-2/Fact%20Sheets/3023802%98IWNA-UNO-4%20 HEALTHCARE%20PROVIDERS%20FACT%20SHEET.pdf Fact Sheet for Healthcare Patients: https://www.[employer]/Documents/Xpert%20Xp ress%20SARS%20CoV-2/Fact%20Sheets/3023801%98WMXO-OFB-5%20PATIENT%20FACT%20SHEET .pdfCBC W/PLT COUNT & AUTO [id number] 10:36:11 Test Item Value Reference Range Interpretation [...] 0.00-1.00 PERCENT (BEAKER) (test code = 2801) [id number] 07:14:17 Test Item Value Reference Range Interpretation Comments FERRITIN (BEAKER) (test code = 254.34 ng/mL 5.00-275.00 361) Pediatrics Physician ID - MARCOCOMPLEMENT COMPONENT [id number] 06:53:04 Test Item Value Reference Range Interpretation Comments C4 COMPLEMENT (BEAKER) (test code = 8 mg/dL 15-57 L 394) Pediatrics Physician ID - MAILEAYA LCOMPLEMENT COMPONENT [id number] 06:53:04 Test Item Value Reference Range Interpretation Comments C3 COMPLEMENT (BEAKER) (test code = 72 mg/dL 82-193 L 393) Pediatrics Physician ID - PIAYA MARKO, TIBC, % SAT. (WITHOUT FERRITIN)2022-05-26 06:52:19 Test Item Value Reference Range Interpretation Comments IRON (BEAKER) (test code = 547) 20.0 ug/dL 40.0-160.0 L TOTAL IRON BINDING CAPACITY 234 ug/dL 250-450 L (BEAKER) (test code = 769) IRON % SATURATION (2) (BEAKER) 9 % 20-55 L (test code = 2590) Pediatrics Physician ID - PHOEBE [id number] 10:06:46 Test Item Value Reference Range Interpretation Comments CULTURE (BEAKER) (test No growth in 5 days code = 1095) Specimen received, ordered, and processed during a system downtime event [facility] 13:52[facility]35 Test Item Value Reference Range Interpretation Comments Result (test code = No growth 6463-4) IDALIA (test code = IDALIA) Specimen Received and Processed during Downtime in February 2022. [facility]2022-12-12 13:52:35 Test Item Value Reference Range Interpretation Comments Result (test code = No growth 6463-4) IDALIA (test code = IDALIA) Specimen Received and Processed during Downtime in February 2022. [facility]2022-12-12 13:52:35 Test Item Value Reference Range Interpretation Comments Result (test code = No growth 6463-4) IDALIA (test code = IDALIA) Specimen Received and Processed during Downtime in February 2022. [facility]2022-12-12 13:52:35 Test Item Value Reference Range Interpretation Comments Result (test code = No growth 6463-4) IDALIA (test code = IDALIA) Specimen Received and Processed during Downtime in February 2022. [facility]2022-12-12 13:52:35 Test Item Value Reference Range Interpretation Comments Result (test code = No growth 6463-4) IDALIA (test code = IDALIA) Specimen Received and Processed during Downtime in February 2022. [facility]2022-12-12 13:52:35 Test Item Value Reference Range Interpretation Comments Result (test code = No growth 6463-4) IDALIA (test code = IDALIA) Specimen Received and Processed during Downtime in February 2022. [facility]2022-12-12 13:52:35 Test Item Value Reference Range Interpretation Comments Result (test code = No growth 6463-4) IDALIA (test code = IDALIA) Specimen Received and Processed during Downtime in February 2022. [facility] [id number] 13:52:35 Test Item Value Reference Range Interpretation Comments Result (test code = No growth 6463-4) IDALIA (test code = IDALIA) Specimen Received and Processed during Downtime in February 2022. [facility] [id number] 13:52:35 Test Item Value Reference Range Interpretation Comments CULTURE (BEAKER) (test code = 1095) No growth Specimen Received and Processed during Downtime in February 2022.COMPREHENSIVE METABOLIC [id number] 08:39:02 Test Item Value Reference Range Interpretation [...] for dialysis patien ts Clostridium difficile GDH [id number] 13:58:24 Test Item Value Reference Range Interpretation Comments C. Difficle Toxin Negative Negative (test code = 2588381887) C. Difficile GDH Negative Negative No indicati on of Antigen (test code = Clostri dium 1379583836) difficile infection and n o colonization. Discontinue enteric isolati on and therapy. IDALIA (test code = Testing performed IDALIA) by [employer] Rapid Cassette Assay. For GDH, published sensitivity of the assay is 98.7% compared to cytotoxicity testing. For Toxin AB, published sensitivity is 87.8% and specificity 99.4% compared to cytotoxicity testing.Verificati on of kit performance was done by the [facility] Microbiology Lab prior to clinical use. Lab Interpretation Normal (test code = 58519-3) [facility] CenterClostridium difficile [facility] [id number] 13:58:24 Test Item Value Reference Range Interpretation Comments C. Difficle Toxin Negative Negative (test code = 5617409382) C. Difficile GDH Negative Negative No indicati on of Antigen (test code = Clostri dium 6048558816) difficile infection and n o colonization. Discontinue enteric isolati on and therapy. IDALIA (test code = Testing performed IDALIA) by Alere Rapid Cassette Assay. For GDH, published sensitivity of the assay is 98.7% compared to cytotoxicity testing. For Toxin AB, published sensitivity is 87.8% and specificity 99.4% compared to cytotoxicity testing.Verificati on of kit performance was done by the [facility] Microbiology Lab prior to clinical use. Lab Interpretation Normal (test code = 20266-1) [facility] [id number] 13:58:24 Test Item Value Reference Range Interpretation Comments C. Difficle Toxin Negative Negative (test code = 9431779225) C. Difficile GDH Negative Negative No indicati on of Antigen (test code = Clostri dium [id number]) difficile infection and n o colonization. Discontinue enteric isolati on and therapy. IDALIA (test code = Testing performed IDALIA) by [employer] Rapid Cassette Assay. For GDH, published sensitivity of the assay is 98.7% compared to cytotoxicity testing. For Toxin AB, published sensitivity is 87.8% and specificity 99.4% compared to cytotoxicity testing.Verificati on of kit performance was done by the [facility] prior to clinical use. Lab Interpretation Normal (test code = 99055-5) [facility] [id number] 13:58:24 Test Item Value Reference Range Interpretation Comments C. Difficle Toxin Negative Negative (test code = 1201927964) C. Difficile GDH Negative Negative No indicati on of Antigen (test code = Clostri dium [id number]) difficile infection and n o colonization. Discontinue enteric isolati on and therapy. IDALIA (test code = Testing performed IDALIA) by [employer] Rapid Cassette Assay. For GDH, published sensitivity of the assay is 98.7% compared to cytotoxicity testing. For Toxin AB, published sensitivity is 87.8% and specificity 99.4% compared to cytotoxicity testing.Verificati on of kit performance was done by the [facility] prior to clinical use. Lab Interpretation Normal (test code = 18836-0) [facility] [id number] 13:58:24 Test Item Value Reference Range Interpretation Comments C. Difficle Toxin Negative Negative (test code = 6555653543) C. Difficile GDH Negative Negative No indicati on of Antigen (test code = Clostri dium 7313744042) difficile infection and n o colonization. Discontinue enteric isolati on and therapy. IDALIA (test code = Testing performed IDALIA) by [employer] Rapid Cassette Assay. For GDH, published sensitivity of the assay is 98.7% compared to cytotoxicity testing. For Toxin AB, published sensitivity is 87.8% and specificity 99.4% compared to cytotoxicity testing.Verificati on of kit performance was done by the [facility] prior to clinical use. Lab Interpretation Normal (test code = 31220-6) [facility] [id number] 13:58:24 Test Item Value Reference Range Interpretation Comments C. Difficle Toxin Negative Negative (test code = 9223207193) C. Difficile GDH Negative Negative No indicati on of Antigen (test code = Clostri dium 4121180392) difficile infection and n o colonization. Discontinue enteric isolati on and therapy. IDALIA (test code = Testing performed IDALIA) by [employer] Rapid Cassette Assay. For GDH, published sensitivity of the assay is 98.7% compared to cytotoxicity testing. For Toxin AB, published sensitivity is 87.8% and specificity 99.4% compared to cytotoxicity testing.Verificati on of kit performance was done by the [facility] prior to clinical use. Lab Interpretation Normal (test code = 90354-3) [facility] [id number] 13:58:24 Test Item Value Reference Range Interpretation Comments C. Difficle Toxin Negative Negative (test code = 3337511615) C. Difficile GDH Negative Negative No indicati on of Antigen (test code = Clostri dium 1362287556) difficile infection and n o colonization. Discontinue enteric isolati on and therapy. IDALIA (test code = Testing performed IDALIA) by [employer] Rapid Cassette Assay. For GDH, published sensitivity of the assay is 98.7% compared to cytotoxicity testing. For Toxin AB, published sensitivity is 87.8% and specificity 99.4% compared to cytotoxicity testing.Verificati on of kit performance was done by the [facility] prior to clinical use. Lab Interpretation Normal (test code = 11563-5) [facility] [id number] 13:58:24 Test Item Value Reference Range Interpretation Comments C. Difficle Toxin Negative Negative (test code = 7679853547) C. Difficile GDH Negative Negative No indicati on of Antigen (test code = Clostri dium 5922346767) difficile infection and n o colonization. Discontinue enteric isolati on and therapy. IDALIA (test code = Testing performed IDALIA) by [employer] Rapid Cassette Assay. For GDH, published sensitivity of the assay is 98.7% compared to cytotoxicity testing. For Toxin AB, published sensitivity is 87.8% and specificity 99.4% compared to cytotoxicity testing.Verificati on of kit performance was done by the [facility] prior to clinical use. Lab Interpretation Normal (test code = 32172-1) [facility]FF[facility] [id number] 13:58:24 Test Item Value Reference Range Interpretation Comments CDT TOXIN (test code Negative Negative = [id number]) CDT GDH ANTIGEN (test Negative Negative No ind ication of code = 4286646396) Clostridi um difficile infection and n o colonization. Discontinue ent felicity isolation and t herapy. Testing performed by [employer] Rapid Cassette Assay. For GDH, published sensitivity of the assay is 98.7% compared to cytotoxicity testing. For Toxin AB, published sensitivity is 87.8% and specificity 99.4% compared to cytotoxicity testing.Verification of kit performance was done by the [facility] prior to clinical use.GI Pathogen Profile by [id number] 08:47:53 Test Item Value Reference Range Interpretation Comments CAMPYLOBACTER PCR (test Not detected Not detected code = 06061-1) PLESIOMONAS SHIGELLOIDES Not detected Not detected (PCR) (test code = 07776-0) SALMONELLA (PCR) (test Not detected Not detected code = 38830-0) YERSINIA ENTEROCOLITICA Not detected Not detected (PCR) (test code = 30733-5) VIBRIO CHOLERAE (PCR) Not detected Not detected (test code = 03411-1) ENTEROAGGREGATIVE E. Not detected Not detected COLI (EAEC) BY PCR (test code = 26671-5) ENTEROPATHOGENIC E. COLI Not detected Not detected (EPEC) BY PCR (test code = 37172-4) ENTEROTOXIGENIC E. COLI Not detected Not detected (ETEC) LT/ST BY PCR (test code = 66714-3) SHIGA-LIKE Not detected Not detected TOXIN-PRODUCING E. COLI (STEC) STX1/STX2 (test code = 55795-8) E. COLI O157 (PCR) (test Not detected Not detected code = 94141-6) SHIGELLA/ENTEROINVASIVE Not detected Not detected E. COLI (EIEC) BY PCR (test code = 35097-6) CRYPTOSPORIDIUM (PCR) Not detected Not detected (test code = 69803-3) CYCLOSPORA CAYETANENSIS Not detected Not detected (PCR) (test code = 90260-9) ENTAMOEBA HISTOLYTICA Not detected Not detected (PCR) (test code = 85731-4) GIARDIA LAMBLIA (PCR) Not detected Not detected (test code = 90450-0) ADENOVIRUS F 40/41 (PCR) Not detected Not detected (test code = 73120-6) ASTROVIRUS (PCR) (test Not detected Not detected code = 61032-1) NOROVIRUS GI/GII (PCR) (test code = 00770-3) ROTAVIRUS A (PCR) (test Not detected Not detected code = 67902-4) SAPOVIRUS (I, II, IV, V) Not detected Not detected BY PCR (test code = 71507-1) VIBRIO Not detected Not detected (PARAHAEMOLYTICUS, VULNIFICUS) (test code = 41415-0) IDALIA (test code = IDALIA) Other viruses, parasites and bacteria not targeted by this PCR panel cannot be excluded; therefore clinical correlation and follow up of serology, culture results, and other molecular studies is required. The results are not intended to be used as the sole means for clinical diagnosis or patient management decisions. This sample was tested at the [facility] using the [employer] Gastrointestinal Panel. It is FDA cleared and has been verified and approved by the [facility] for clinical use. This laboratory is CLIA-certified and [employer] ([employer])-accredited to perform high complexity testing. [facility] by [id number] 08:47:53 Test Item Value Reference Range Interpretation Comments CAMPYLOBACTER PCR (test Not detected Not detected code = 64879-0) PLESIOMONAS SHIGELLOIDES Not detected Not detected (PCR) (test code = 66756-5) SALMONELLA (PCR) (test Not detected Not detected code = 05405-9) YERSINIA ENTEROCOLITICA Not detected Not detected (PCR) (test code = 63277-4) VIBRIO CHOLERAE (PCR) Not detected Not detected (test code = 61423-9) ENTEROAGGREGATIVE E. Not detected Not detected COLI (EAEC) BY PCR (test code = 08795-8) ENTEROPATHOGENIC E. COLI Not detected Not detected (EPEC) BY PCR (test code = 42249-5) ENTEROTOXIGENIC E. COLI Not detected Not detected (ETEC) LT/ST BY PCR (test code = 56757-4) SHIGA-LIKE Not detected Not detected TOXIN-PRODUCING E. COLI (STEC) STX1/STX2 (test code = 88440-7) E. COLI O157 (PCR) (test Not detected Not detected code = 14037-1) SHIGELLA/ENTEROINVASIVE Not detected Not detected E. COLI (EIEC) BY PCR (test code = 46445-5) CRYPTOSPORIDIUM (PCR) Not detected Not detected (test code = 27444-2) CYCLOSPORA CAYETANENSIS Not detected Not detected (PCR) (test code = 64466-7) ENTAMOEBA HISTOLYTICA Not detected Not detected (PCR) (test code = 84237-5) GIARDIA LAMBLIA (PCR) Not detected Not detected (test code = 15895-2) ADENOVIRUS F 40/41 (PCR) Not detected Not detected (test code = 32988-5) ASTROVIRUS (PCR) (test Not detected Not detected code = 95374-5) NOROVIRUS GI/GII (PCR) (test code = 06066-1) ROTAVIRUS A (PCR) (test Not detected Not detected code = 33135-7) SAPOVIRUS (I, II, IV, V) Not detected Not detected BY PCR (test code = 66786-8) VIBRIO Not detected Not detected (PARAHAEMOLYTICUS, VULNIFICUS) (test code = 25758-7) IDALIA (test code = IDALIA) Other viruses, parasites and bacteria not targeted by this PCR panel cannot be excluded; therefore clinical correlation and follow up of serology, culture results, and other molecular studies is required. The results are not intended to be used as the sole means for clinical diagnosis or patient management decisions. This sample was tested at the [facility] using the [employer] Gastrointestinal Panel. It is FDA cleared and has been verified and approved by the [facility] for clinical use. This laboratory is CLIA-certified and [employer] ([employer])-accredited to perform high complexity testing. [facility] by [id number] 08:47:53 Test Item Value Reference Range Interpretation Comments CAMPYLOBACTER PCR (test Not detected Not detected code = 48581-3) PLESIOMONAS SHIGELLOIDES Not detected Not detected (PCR) (test code = 51864-8) SALMONELLA (PCR) (test Not detected Not detected code = 10281-5) YERSINIA ENTEROCOLITICA Not detected Not detected (PCR) (test code = 80372-9) VIBRIO CHOLERAE (PCR) Not detected Not detected (test code = 46634-1) ENTEROAGGREGATIVE E. Not detected Not detected COLI (EAEC) BY PCR (test code = 89718-5) ENTEROPATHOGENIC E. COLI Not detected Not detected (EPEC) BY PCR (test code = 01129-2) ENTEROTOXIGENIC E. COLI Not detected Not detected (ETEC) LT/ST BY PCR (test code = 22312-8) SHIGA-LIKE Not detected Not detected TOXIN-PRODUCING E. COLI (STEC) STX1/STX2 (test code = 00638-1) E. COLI O157 (PCR) (test Not detected Not detected code = 43624-3) SHIGELLA/ENTEROINVASIVE Not detected Not detected E. COLI (EIEC) BY PCR (test code = 77454-1) CRYPTOSPORIDIUM (PCR) Not detected Not detected (test code = 49619-4) CYCLOSPORA CAYETANENSIS Not detected Not detected (PCR) (test code = 95741-9) ENTAMOEBA HISTOLYTICA Not detected Not detected (PCR) (test code = 65947-8) GIARDIA LAMBLIA (PCR) Not detected Not detected (test code = 32852-1) ADENOVIRUS F 40/41 (PCR) Not detected Not detected (test code = 10967-8) ASTROVIRUS (PCR) (test Not detected Not detected code = 73940-3) NOROVIRUS GI/GII (PCR) (test code = 29404-6) ROTAVIRUS A (PCR) (test Not detected Not detected code = 33633-4) SAPOVIRUS (I, II, IV, V) Not detected Not detected BY PCR (test code = 94473-5) VIBRIO Not detected Not detected (PARAHAEMOLYTICUS, VULNIFICUS) (test code = 95843-3) IDALIA (test code = IDALIA) Other viruses, parasites and bacteria not targeted by this PCR panel cannot be excluded; therefore clinical correlation and follow up of serology, culture results, and other molecular studies is required. The results are not intended to be used as the sole means for clinical diagnosis or patient management decisions. This sample was tested at the [facility] using the [employer] Gastrointestinal Panel. It is FDA cleared and has been verified and approved by the [facility] for clinical use. This laboratory is CLIA-certified and [employer] ([employer])-accredited to perform high complexity testing. [facility] by [id number] 08:47:53 Test Item Value Reference Range Interpretation Comments CAMPYLOBACTER PCR (test Not detected Not detected code = 84098-9) PLESIOMONAS SHIGELLOIDES Not detected Not detected (PCR) (test code = 48236-6) SALMONELLA (PCR) (test Not detected Not detected code = 33946-6) YERSINIA ENTEROCOLITICA Not detected Not detected (PCR) (test code = 11649-4) VIBRIO CHOLERAE (PCR) Not detected Not detected (test code = 03452-9) ENTEROAGGREGATIVE E. Not detected Not detected COLI (EAEC) BY PCR (test code = 24432-5) ENTEROPATHOGENIC E. COLI Not detected Not detected (EPEC) BY PCR (test code = 89738-3) ENTEROTOXIGENIC E. COLI Not detected Not detected (ETEC) LT/ST BY PCR (test code = 50344-7) SHIGA-LIKE Not detected Not detected TOXIN-PRODUCING E. COLI (STEC) STX1/STX2 (test code = 45939-7) E. COLI O157 (PCR) (test Not detected Not detected code = 60637-9) SHIGELLA/ENTEROINVASIVE Not detected Not detected E. COLI (EIEC) BY PCR (test code = 31546-9) CRYPTOSPORIDIUM (PCR) Not detected Not detected (test code = 60414-2) CYCLOSPORA CAYETANENSIS Not detected Not detected (PCR) (test code = 09345-8) ENTAMOEBA HISTOLYTICA Not detected Not detected (PCR) (test code = 24713-9) GIARDIA LAMBLIA (PCR) Not detected Not detected (test code = 37177-3) ADENOVIRUS F 40/41 (PCR) Not detected Not detected (test code = 63979-5) ASTROVIRUS (PCR) (test Not detected Not detected code = 42718-6) NOROVIRUS GI/GII (PCR) (test code = 61528-3) ROTAVIRUS A (PCR) (test Not detected Not detected code = 21249-0) SAPOVIRUS (I, II, IV, V) Not detected Not detected BY PCR (test code = 93046-6) VIBRIO Not detected Not detected (PARAHAEMOLYTICUS, VULNIFICUS) (test code = 09463-4) IDALIA (test code = IDALIA) Other viruses, parasites and bacteria not targeted by this PCR panel cannot be excluded; therefore clinical correlation and follow up of serology, culture results, and other molecular studies is required. The results are not intended to be used as the sole means for clinical diagnosis or patient management decisions. This sample was tested at the [facility] using the [employer] Gastrointestinal Panel. It is FDA cleared and has been verified and approved by the [facility] for clinical use. This laboratory is CLIA-certified and [employer] [place] ([employer])-accredited to perform high complexity testing. [facility] by [id number] 08:47:53 Test Item Value Reference Range Interpretation Comments CAMPYLOBACTER PCR (test Not detected Not detected code = 03793-5) PLESIOMONAS SHIGELLOIDES Not detected Not detected (PCR) (test code = 30813-0) SALMONELLA (PCR) (test Not detected Not detected code = 60270-3) YERSINIA ENTEROCOLITICA Not detected Not detected (PCR) (test code = 69004-7) VIBRIO CHOLERAE (PCR) Not detected Not detected (test code = 47625-5) ENTEROAGGREGATIVE E. Not detected Not detected COLI (EAEC) BY PCR (test code = 37228-1) ENTEROPATHOGENIC E. COLI Not detected Not detected (EPEC) BY PCR (test code = 45794-0) ENTEROTOXIGENIC E. COLI Not detected Not detected (ETEC) LT/ST BY PCR (test code = 12485-4) SHIGA-LIKE Not detected Not detected TOXIN-PRODUCING E. COLI (STEC) STX1/STX2 (test code = 18691-2) E. COLI O157 (PCR) (test Not detected Not detected code = 99116-7) SHIGELLA/ENTEROINVASIVE Not detected Not detected E. COLI (EIEC) BY PCR (test code = 59617-6) CRYPTOSPORIDIUM (PCR) Not detected Not detected (test code = 60366-4) CYCLOSPORA CAYETANENSIS Not detected Not detected (PCR) (test code = 57376-3) ENTAMOEBA HISTOLYTICA Not detected Not detected (PCR) (test code = 17010-1) GIARDIA LAMBLIA (PCR) Not detected Not detected (test code = 53651-4) ADENOVIRUS F 40/41 (PCR) Not detected Not detected (test code = 85913-2) ASTROVIRUS (PCR) (test Not detected Not detected code = 03927-7) NOROVIRUS GI/GII (PCR) (test code = 82767-8) ROTAVIRUS A (PCR) (test Not detected Not detected code = 46529-0) SAPOVIRUS (I, II, IV, V) Not detected Not detected BY PCR (test code = 89444-8) VIBRIO Not detected Not detected (PARAHAEMOLYTICUS, VULNIFICUS) (test code = 23528-8) IDALIA (test code = IDALIA) Other viruses, parasites and bacteria not targeted by this PCR panel cannot be excluded; therefore clinical correlation and follow up of serology, culture results, and other molecular studies is required. The results are not intended to be used as the sole means for clinical diagnosis or patient management decisions. This sample was tested at the [facility] using the [employer] Gastrointestinal Panel. It is FDA cleared and has been verified and approved by the [facility] for clinical use. This laboratory is CLIA-certified and [employer] [place] ([employer])-accredited to perform high complexity testing. [facility] by [id number] 08:47:53 Test Item Value Reference Range Interpretation Comments CAMPYLOBACTER PCR (test Not detected Not detected code = 15923-6) PLESIOMONAS SHIGELLOIDES Not detected Not detected (PCR) (test code = 13722-8) SALMONELLA (PCR) (test Not detected Not detected code = 97763-9) YERSINIA ENTEROCOLITICA Not detected Not detected (PCR) (test code = 06535-4) VIBRIO CHOLERAE (PCR) Not detected Not detected (test code = 33165-7) ENTEROAGGREGATIVE E. Not detected Not detected COLI (EAEC) BY PCR (test code = 62472-8) ENTEROPATHOGENIC E. COLI Not detected Not detected (EPEC) BY PCR (test code = 18622-3) ENTEROTOXIGENIC E. COLI Not detected Not detected (ETEC) LT/ST BY PCR (test code = 50060-8) SHIGA-LIKE Not detected Not detected TOXIN-PRODUCING E. COLI (STEC) STX1/STX2 (test code = 25889-6) E. COLI O157 (PCR) (test Not detected Not detected code = 27381-6) SHIGELLA/ENTEROINVASIVE Not detected Not detected E. COLI (EIEC) BY PCR (test code = 66324-3) CRYPTOSPORIDIUM (PCR) Not detected Not detected (test code = 58880-5) CYCLOSPORA CAYETANENSIS Not detected Not detected (PCR) (test code = 71842-8) ENTAMOEBA HISTOLYTICA Not detected Not detected (PCR) (test code = 12545-8) GIARDIA LAMBLIA (PCR) Not detected Not detected (test code = 67627-6) ADENOVIRUS F 40/41 (PCR) Not detected Not detected (test code = 56499-4) ASTROVIRUS (PCR) (test Not detected Not detected code = 44511-8) NOROVIRUS GI/GII (PCR) (test code = 81756-9) ROTAVIRUS A (PCR) (test Not detected Not detected code = 88706-5) SAPOVIRUS (I, II, IV, V) Not detected Not detected BY PCR (test code = 55768-7) VIBRIO Not detected Not detected (PARAHAEMOLYTICUS, VULNIFICUS) (test code = 60324-1) IDALIA (test code = IDALIA) Other viruses, parasites and bacteria not targeted by this PCR panel cannot be excluded; therefore clinical correlation and follow up of serology, culture results, and other molecular studies is required. The results are not intended to be used as the sole means for clinical diagnosis or patient management decisions. This sample was tested at the [facility] using the [employer] Gastrointestinal Panel. It is FDA cleared and has been verified and approved by the [facility] for clinical use. This laboratory is CLIA-certified and [employer] [place] ([employer])-accredited to perform high complexity testing. [facility] by [id number] 08:47:53 Test Item Value Reference Range Interpretation Comments CAMPYLOBACTER PCR (test Not detected Not detected code = 08687-2) PLESIOMONAS SHIGELLOIDES Not detected Not detected (PCR) (test code = 94337-2) SALMONELLA (PCR) (test Not detected Not detected code = 89543-9) YERSINIA ENTEROCOLITICA Not detected Not detected (PCR) (test code = 37014-9) VIBRIO CHOLERAE (PCR) Not detected Not detected (test code = 33424-0) ENTEROAGGREGATIVE E. Not detected Not detected COLI (EAEC) BY PCR (test code = 92245-5) ENTEROPATHOGENIC E. COLI Not detected Not detected (EPEC) BY PCR (test code = 85116-6) ENTEROTOXIGENIC E. COLI Not detected Not detected (ETEC) LT/ST BY PCR (test code = 97326-6) SHIGA-LIKE Not detected Not detected TOXIN-PRODUCING E. COLI (STEC) STX1/STX2 (test code = 70039-7) E. COLI O157 (PCR) (test Not detected Not detected code = 65737-9) SHIGELLA/ENTEROINVASIVE Not detected Not detected E. COLI (EIEC) BY PCR (test code = 33225-2) CRYPTOSPORIDIUM (PCR) Not detected Not detected (test code = 74807-4) CYCLOSPORA CAYETANENSIS Not detected Not detected (PCR) (test code = 46570-7) ENTAMOEBA HISTOLYTICA Not detected Not detected (PCR) (test code = 82556-7) GIARDIA LAMBLIA (PCR) Not detected Not detected (test code = 46260-1) ADENOVIRUS F 40/41 (PCR) Not detected Not detected (test code = 00449-4) ASTROVIRUS (PCR) (test Not detected Not detected code = 27148-9) NOROVIRUS GI/GII (PCR) (test code = 36619-6) ROTAVIRUS A (PCR) (test Not detected Not detected code = 35742-1) SAPOVIRUS (I, II, IV, V) Not detected Not detected BY PCR (test code = 14605-4) VIBRIO Not detected Not detected (PARAHAEMOLYTICUS, VULNIFICUS) (test code = 02038-1) IDALIA (test code = IDALIA) Other viruses, parasites and bacteria not targeted by this PCR panel cannot be excluded; therefore clinical correlation and follow up of serology, culture results, and other molecular studies is required. The results are not intended to be used as the sole means for clinical diagnosis or patient management decisions. This sample was tested at the [facility] using the [employer] Gastrointestinal Panel. It is FDA cleared and has been verified and approved by the [facility] for clinical use. This laboratory is CLIA-certified and [employer] [place] ([employer])-accredited to perform high complexity testing. [facility] by [id number] 08:47:53 Test Item Value Reference Range Interpretation Comments CAMPYLOBACTER PCR (test Not detected Not detected code = 39382-6) PLESIOMONAS SHIGELLOIDES Not detected Not detected (PCR) (test code = 40314-6) SALMONELLA (PCR) (test Not detected Not detected code = 71133-5) YERSINIA ENTEROCOLITICA Not detected Not detected (PCR) (test code = 32193-3) VIBRIO CHOLERAE (PCR) Not detected Not detected (test code = 31738-5) ENTEROAGGREGATIVE E. Not detected Not detected COLI (EAEC) BY PCR (test code = 98499-4) ENTEROPATHOGENIC E. COLI Not detected Not detected (EPEC) BY PCR (test code = 12783-1) ENTEROTOXIGENIC E. COLI Not detected Not detected (ETEC) LT/ST BY PCR (test code = 20755-3) SHIGA-LIKE Not detected Not detected TOXIN-PRODUCING E. COLI (STEC) STX1/STX2 (test code = 33845-5) E. COLI O157 (PCR) (test Not detected Not detected code = 28481-3) SHIGELLA/ENTEROINVASIVE Not detected Not detected E. COLI (EIEC) BY PCR (test code = 47578-3) CRYPTOSPORIDIUM (PCR) Not detected Not detected (test code = 14825-0) CYCLOSPORA CAYETANENSIS Not detected Not detected (PCR) (test code = 50888-4) ENTAMOEBA HISTOLYTICA Not detected Not detected (PCR) (test code = 02191-4) GIARDIA LAMBLIA (PCR) Not detected Not detected (test code = 08322-1) ADENOVIRUS F 40/41 (PCR) Not detected Not detected (test code = 50619-6) ASTROVIRUS (PCR) (test Not detected Not detected code = 98851-7) NOROVIRUS GI/GII (PCR) (test code = 45217-4) ROTAVIRUS A (PCR) (test Not detected Not detected code = 79228-4) SAPOVIRUS (I, II, IV, V) Not detected Not detected BY PCR (test code = 93020-9) VIBRIO Not detected Not detected (PARAHAEMOLYTICUS, VULNIFICUS) (test code = 31937-8) IDALIA (test code = IADLIA) Other viruses, parasites and bacteria not targeted by this PCR panel cannot be excluded; therefore clinical correlation and follow up of serology, culture results, and other molecular studies is required. The results are not intended to be used as the sole means for clinical diagnosis or patient management decisions. This sample was tested at the [facility] using the [employer] Gastrointestinal Panel. It is FDA cleared and has been verified and approved by the [facility] for clinical use. This laboratory is CLIA-certified and [employer] [place] [employer] (CAP)-accredited to perform high complexity testing. [facility] [id number] 08:47:53 Test Item Value Reference Range Interpretation Comments CAMPYLOBACTER (PCR) (test code = Not detected Not detected 20151122) PLESIOMONAS SHIGELLOIDES (PCR) Not detected Not detected (test code = 20151126) SALMONELLA (PCR) (test code = Not detected Not detected ) YERSINIA ENTEROCOLITICA (PCR) Not detected Not detected (test code = 7189941) VIBRIO CHOLERAE (PCR) (test code Not detected Not detected = 20151220) ENTEROAGGREGATIVE E. COLI (EAEC) Not detected Not detected BY PCR (test code = 6199880) ENTEROPATHOGENIC E. COLI (EPEC) Not detected Not detected BY PCR (test code = 2228932) ENTEROTOXIGENIC E. COLI (ETEC) Not detected Not detected LT/ST BY PCR (test code = 0742205) SHIGA-LIKE TOXIN-PRODUCING E. Not detected Not detected COLI (STEC) PCR (test code = 0172118) E. COLI O157 (PCR) (test code = Not detected Not detected 20151225) SHIGELLA/ENTEROINVASIVE E. COLI Not detected Not detected (EIEC) BY PCR (test code = 4523745) CRYPTOSPORIDIUM (PCR) (test code Not detected Not detected = 20151227) CYCLOSPORA CAYETANENSIS (PCR) Not detected Not detected (test code = 8007091) ENTAMOEBA HISTOLYTICA (PCR) Not detected Not detected (test code = 20160119) GIARDIA LAMBLIA (PCR) (test code Not detected Not detected = 20160120) ADENOVIRUS F 40/41 (PCR) (test Not detected Not detected code = 1307367) ASTROVIRUS (PCR) (test code = Not detected Not detected 20160122) NOROVIRUS GI/GII (PCR) (test code = 4713739) ROTAVIRUS A (PCR) (test code = Not detected Not detected 20160124) SAPOVIRUS (I, II, IV, V) BY PCR Not detected Not detected (test code = 20160125) VIBRIO (PARAHAEMOLYTICUS, Not detected Not detected VULNIFICUS) (test code = 2087068) Other viruses, parasites and bacteria not targeted by this PCR panel cannot be excluded; therefore clinical correlation and follow up of serology, culture results, and other molecular studies is required. The results are not intended to be used as the sole means for clinical diagnosis or patient management decisions. This sample was tested at the [facility] using the [employer] Gastrointestinal Panel. It is FDA cleared and has been verified and approved by the [facility] for clinical use. This laboratory is CLIA-certified and College ofAmerican Pathologists (CAP)-accredited to perform high complexity testing.AFB culture + smear (non-sputum)2022-03-29 15:57:56 Test Item Value Reference Range Interpretation Comments Result (test code = No acid-fast bacilli 6463-4) isolated in 42 days AFB Smear (test code = No acid fast bacilli 27723-1) [facility]sputum[facility]2022-03-29 15:57:56 Test Item Value Reference Range Interpretation Comments Result (test code = No acid-fast bacilli 6463-4) isolated in 42 days AFB Smear (test code = No acid fast bacilli 12201-9) seen [facility] smear (non-sputum)2022-03-29 15:57:56 Test Item Value Reference Range Interpretation Comments Result (test code = No acid-fast bacilli 6463-4) isolated in 42 days AFB Smear (test code = No acid fast bacilli 37123-5) seen [facility] smear (non-sputum)2022-03-29 15:57:56 Test Item Value Reference Range Interpretation Comments Result (test code = No acid-fast bacilli 6463-4) isolated in 42 days AFB Smear (test code = No acid fast bacilli 33717-3) seen [facility] smear (non-sputum)2022-03-29 15:57:56 Test Item Value Reference Range Interpretation Comments Result (test code = No acid-fast bacilli 6463-4) isolated in 42 days AFB Smear (test code = No acid fast bacilli 80643-8) [facility] smear (non-sputum)2022-03-29 15:57:56 Test Item Value Reference Range Interpretation Comments Result (test code = No acid-fast bacilli 6463-4) isolated in 42 days AFB Smear (test code = No acid fast bacilli 01291-6) seen [facility] smear (non-sputum)2022-03-29 15:57:56 Test Item Value Reference Range Interpretation Comments Result (test code = No acid-fast bacilli 6463-4) isolated in 42 days AFB Smear (test code = No acid fast bacilli 51385-4) seen [facility] smear (non-sputum)2022-03-29 15:57:56 Test Item Value Reference Range Interpretation Comments Result (test code = No acid-fast bacilli 6463-4) isolated in 42 days AFB Smear (test code = No acid fast bacilli 50129-7) seen [facility] + SMEAR (NON-SPUTUM)2022-03-29 15:57:56 Test Item Value Reference Range Interpretation Comments CULTURE (BEAKER) (test No acid-fast bacilli code = 1095) isolated in 42 days AFB SMEAR (BEAKER) No acid fast bacilli (test code = 994) seen Fungus culture + [id number] 21:09:03 Test Item Value Reference Range Interpretation Comments Result (test code = No fungus isolated in 6463-4) 28 days Fungus Smear (test No fungi seen code = 1406) [facility] + [id number] 21:09:03 Test Item Value Reference Range Interpretation Comments Result (test code = No fungus isolated in 6463-4) 28 days Fungus Smear (test No fungi seen code = 1406) [facility] + [id number] 21:09:03 Test Item Value Reference Range Interpretation Comments Result (test code = No fungus isolated in 6463-4) 28 days Fungus Smear (test No fungi seen code = 1406) [facility] + [id number] 21:09:03 Test Item Value Reference Range Interpretation Comments Result (test code = No fungus isolated in 6463-4) 28 days Fungus Smear (test No fungi seen code = 1406) [facility] + [id number] 21:09:03 Test Item Value Reference Range Interpretation Comments Result (test code = No fungus isolated in 6463-4) 28 days Fungus Smear (test No fungi seen code = 1406) [facility] CenterFuus [facility] + [id number] 21:09:03 Test Item Value Reference Range Interpretation Comments Result (test code = No fungus isolated in 6463-4) 28 days Fungus Smear (test No fungi seen code = 1406) [facility] CenterFu[facility] + [id number] 21:09:03 Test Item Value Reference Range Interpretation Comments Result (test code = No fungus isolated in 6463-4) 28 days Fungus Smear (test No fungi seen code = 1406) [facility] CenterF[facility] + [id number] 21:09:03 Test Item Value Reference Range Interpretation Comments Result (test code = No fungus isolated in 6463-4) 28 days Fungus Smear (test No fungi seen code = 1406) [facility] + [id number] 21:09:03 Test Item Value Reference Range Interpretation Comments CULTURE (BEAKER) (test No fungus isolated in code = 1095) 28 days FUNGUS SMEAR (BEAKER) No fungi seen (test code = 1406) COMP. METABOLIC PANEL (22903)2022-03-14 20:23:20 Test Item Value Reference Range Interpretation Comments NA (test code = 139 mmol/L 135-145 3348294392) K (test code = 4.4 mmol/L 3.5-5.0 2415404732) CL (test code = 98 mmol/L 98-108 4650257600) CO2 TOTAL (test code 30 mmol/L 23-31 = 9570280001) AGAP (test code = 2-16 1922754128) BUN (test code = 16 mg/dL 7-23 1208857891) GLUCOSE (test code = 104 mg/dL 70-110 2433156043) CREATININE (test code 0.64 mg/dL 0.50-1.04 = 5302951947) TOTAL BILI (test code 0.5 mg/dL 0.1-1.1 = 6497055936) CALCIUM (test code = 10.0 mg/dL 8.6-10.6 7433888812) T PROTEIN (test code 8.1 g/dL 6.3-8.2 = 1570437651) ALBUMIN (test code = 4.4 g/dL 3.5-5.0 8428007126) ALK PHOS (test code = 98 U/L 34-122 0353679159) ALTv (test code = 31 U/L 5-35 1742-6) AST(SGOT) (test code 33 U/L 13-40 = 8727896425) eGFR (test code = mL/min/1.73m2 4238399426) IDALIA (test code = IDALIA) Association of [...] or urine or abnormalities in imaging tests). [facility]20 Test Item Value Reference Range Interpretation Comments LIPASE (test code = 7820017176) 105 U/L 0-220 Lab Interpretation (test code = Normal 40683-5) [facility] HospitalCBC WITH [id number] 20:11:38 Test Item Value Reference Range Interpretation Comments WBC (test code = See_Comment [Automated 9890-2) message] The sy stem which generated this [...] RDW-SD (test code = 48.9 fL 39.0-49.9 13634-2) RDW-CV (test code = 17.2 % 12.0-15.5 H 788-0) PLT (test code = See_Comment [Automated 777-3) message] The sy stem which generated this result transmitted reference range : 166 - 358 10*3/ ?L. The reference r colby was not used to interpret this result as normal/abnormal . MPV (test code = 10.1 fL 9.5-12.9 96488-8) NRBC/100 WBC (test See_Comment [Automat ed code = 1563628740) message] The system which generated this result transmitted reference range : 0.0 - 10.0 /100 WBCs. The refer ence range was not u sed to interpret th is result as normal/abnormal . NRBC x10^3 (test code See_Comment [Auto mated = 8703341402) message] The s ystem which generated this result transmitted reference range : 10*3/?L. The reference range was not used to interpret this result as normal/abnormal . GRAN MAT (NEUT) % 76.3 % (test code = 770-8) IMM GRAN % (test code 0.50 % = 3103643446) LYMPH % (test code = 14.1 % 736-9) MONO % (test code = 6.4 % 5905-5) EOS % (test code = 1.7 % 713-8) BASO % (test code = 1.0 % 706-2) GRAN MAT x10^3(ANC) 7.94 10*3/uL 1.88-7.09 H (test code = 8035435690) IMM GRAN x10^3 (test 0.05 10*3/uL 0.00-0.06 code = 8246678591) LYMPH x10^3 (test code 1.46 10*3/uL 1.32-3.29 = 731-0) MONO x10^3 (test code 0.66 10*3/uL 0.33-0.92 = 742-7) EOS x10^3 (test code = 0.18 10*3/uL 0.03-0.39 711-2) BASO x10^3 (test code 0.10 10*3/uL 0.01-0.07 H = 704-7) Lab Interpretation Abnormal (test code = 54187-6) [facility]ABOLIC [id number] 06:05:57 Test Item Value Reference Range Interpretation [...] not appl icable for dialysis patien ts Pediatrics Physician ID - PIAYA LOperator ID - PIAYA LCBC (HEMOGRAM ONLY)2022-03-12 05:32:20 Test Item Value [...] 0-0 (BEAKER) (test code = 413) CT, [id number] 09:26:00Unlisted Reason for Exam - Click Yes and Enter Reason Below->NoIs this for enterography?->NoWill this procedure require oral contrast?->Yes [facility] : 2000 Sex: MFINALREPORT TECHNIQUE: [...] Gastric wall thickening likely reactive. Signed: Cira Doradoepceferino Verified Date/Time: 03/11/2022 09:26:38 Reading Location: [address] Transitional Reading Room BASIC METABOLIC [id number] 06:38:12 Test Item Value Reference Range Interpretation [...] not appl icable for dialysis patien ts Pediatrics Physician ID - ADMINCBC W/PLT COUNT & AUTO [id number] 05:54:20 Test Item Value Reference Range Interpretation [...] = 2801) RAD, CHEST, 1 VIEW, NON [id number] 15:36:0015T-10 [facility] : 2000 Sex: [...] Garcia Verified Date/Time: 03/06/2022 15:36:20 Reading Location: [address] Reading [place], [id number] 09:42:00Pain. Hx LUQ collection assess for possible to drain now as well. [facility] : 2000 Sex: [...] Page MDReport Verified Date/Time: 03/01/2022 09:42:02 [place], ASPIRATION/[id number] 16:11:00[facility] : 2000 Sex: [...] of approximately 3 cc of Isovue-300 contrast. As400 Administrator images saved in the patient's medical record. [...] of approximately 3 cc of Isovue-300 contrast. As400 Administrator images saved in the patient's medical record. [...] MDReport Verified Date/Time: 02/27/2022 16:11:07 Reading Location: [facility] B1 C013X Ortho Consult Reading Room MR, EXTREMITY, LOWER, HIP JOINT, WITHOUT CONTRAST, [id number] 15:21:00 [facility] : 2000 Sex: MFINAL REPORT MRI OF THE LEFT HIP HISTORY: Left hip pain, avascular necrosis, osteoarthritis COMPARISON: CT pelvis of 02/05/2022 TECHNIQUE: Multiplanar multisequence MRI of the left hip wasperformed without contrast. Examination included coronal large ynipd-rt-xrjs sequences of the pelvisand bilateral hips as well as dedicated small gsmya-gu-phbl unilateral axial and sagittal oblique sequences of [...] MR, EXTREMITY, LOWER, HIP JOINT, WITHOUT CONTRAST, [id number] 15:17:00 [facility] : 2000 Sex: MFINAL REPORT MRI OF THE RIGHT HIP HISTORY: Right hip pain, avascular necrosis, arthritis COMPARISON: CT pelvis of 02/05/2022 TECHNIQUE: Multiplanar multisequence MRI of the right hip was performed without contrast. Examination included coronal large aznyt-oh-vvov sequences of the pelvis and bilateral hips as well as dedicated small rzxei-yj-tgqt unilateral axial and sagittal oblique sequences of [...] Date/Time: 02/25/2022 15:17:32 RAD, HIPS, 2 VIEWS, [id number] 15:03:00 [facility] 2000 Sex: [...] No definite avascular necrosis. Signed: Yash Lux Verified Date/Time: 02/24/2022 15:03:53 Reading Location: [facility] B1 C013Y CT Body Reading Room - CT ABD PELVIS W/O CONT 2022-02-20 12:09:00 [facility] 2000 Sex: M FAX: Y Willard Crouch Jr [phone] [place]: St: REG Name: VANGIE OVALLE [facility] : 2000 Age/S: 22/M [address] Unit: [id number] Loc: [place] [address] Phys: Willard Crouch Jr, MD Acct: [id number] Dis Date: Status: REG CLI PHONE #: [phone] Exam Date: 02/20/2022 1115 FAX #: [phone]: FREQUENT BM EXAMS: CPT CODE: [id number] CT ABD PELVIS W/O CONT 05207 EXAM: - CT ABD PELVIS W/O CONT [...] 1 Signed Report(CONTINUED) FAX: Willard Vaughn Jr [phone] [place]: St: REG Name: VANGIE OVALLE [facility] : 2000 Age/S: 22/M [address] Unit: [id number] Loc: [place] [address] Phys: Willard Crouch Acct: [id number] Dis Date: Status: REG CLI PHONE #: [phone] Exam Date: 02/20/2022 1115 FAX#: [phone] Reason: FREQUENT BM EXAMS: CPT CODE: [id number] CT ABD PELVIS W/O CONT 72495 (Continued) Genitourinary:Urinary bladder appears to be mildly [...] JozefR.AH26 PAGE 2 Signed ReportDOUBLE-STRANDED DNA (DSDNA) [id number] 12:26:46 Test Item Value Reference Range Interpretation Comments ANTI-DNA DS (BEAKER) (test code = Negative Negative 1055) Anaerobic Tdppejb7468-02-46 09:53:02 Test Item Value Reference Range Interpretation Comments Result (test code = No anaerobes isolated 6463-4) [facility] [id number] 09:53:02 Test Item Value Reference Range Interpretation Comments Result (test code = No anaerobes isolated 6463-4) [facility] Teixapi3053-34-24 09:53:02 Test Item Value Reference Range Interpretation Comments Result (test code = No anaerobes isolated 6463-4) [facility] Auerkjl6210-69-16 09:53:02 Test Item Value Reference Range Interpretation Comments Result (test code = No anaerobes isolated 6463-4) [facility] Eklccqe6923-11-83 09:53:02 Test Item Value Reference Range Interpretation Comments Result (test code = No anaerobes isolated 6463-4) [facility] Jerdoei8027-64-30 09:53:02 Test Item Value Reference Range Interpretation Comments Result (test code = No anaerobes isolated 6463-4) [facility] [id number] 09:53:02 Test Item Value Reference Range Interpretation Comments Result (test code = No anaerobes isolated 6463-4) [facility] Ctbsmth9434-80-22 09:53:02 Test Item Value Reference Range Interpretation Comments Result (test code = No anaerobes isolated 6463-4) [facility] Xahxueo6312-79-54 09:53:02 Test Item Value Reference Range Interpretation Comments Result (test code = No anaerobes isolated 6463-4) [facility] Aelnosr4106-94-41 09:53:02 Test Item Value Reference Range Interpretation Comments Result (test code = No anaerobes isolated 6463-4) [facility] [id number] 09:53:02 Test Item Value Reference Range Interpretation Comments CULTURE (BEAKER) (test No anaerobes isolated code = 1095) COMPLEMENT COMPONENT [id number] 13:18:38 Test Item Value Reference Range Interpretation Comments C3 COMPLEMENT (BEAKER) (test code = 103 mg/dL 82-193 393) Pediatrics Physician ID - AAHAMIDCOMPLEMENT COMPONENT [id number] 13:18:37 Test Item Value Reference Range Interpretation Comments C4 COMPLEMENT (BEAKER) (test code = 11 mg/dL 15-57 L 394) Pediatrics Physician ID - AAHAMIDSURGICALLY OBTAINED CULTURE + GRAM [id number] 11:03:20 Test Item Value Reference Range Interpretation [...] No organisms seen (BEAKER) (test code = 315946) [id number] 06:37:27 Test Item Value Reference Range Interpretation Comments PHOSPHORUS (BEAKER) (test code = 3.5 mg/dL 2.3-4.7 604) Pediatrics Physician BEATRIZ LÓPEZ LBASIC METABOLIC [id number] 06:37:26 Test Item Value Reference Range Interpretation [...] not appl icable for dialysis patien ts Pediatrics Physician ID - MARIBEL [id number] 06:37:26 Test Item Value Reference Range Interpretation Comments MAGNESIUM (BEAKER) (test code = 1.5 mg/dL 1.6-2.6 L 627) Pediatrics Physician BEATRIZ LÓPEZ LCBC W/PLT COUNT & AUTO [id number] 05:01:09 Test Item Value Reference Range Interpretation [...] (BEAKER) (test code = 2801) BASIC METABOLIC [id number] 06:02:45 Test Item Value Reference Range Interpretation [...] not appl icable for dialysis patien ts Pediatrics Physician ID - ALVINA MCBC W/PLT COUNT & AUTO [id number] 05:42:07 Test Item Value Reference Range Interpretation [...] = 2801) CBC W/PLT COUNT & AUTO [id number] 05:09:33 Test Item Value Reference Range Interpretation [...] 0-1 PERCENT (BEAKER) (test code = 2801) [id number] 04:56:25 Test Item Value Reference Range Interpretation Comments MAGNESIUM (BEAKER) (test code = 1.6 mg/dL 1.6-2.6 627) Pediatrics Physician ID - PIAYA [id number] 04:56:25 Test Item Value Reference Range Interpretation Comments PHOSPHORUS (BEAKER) (test code = 2.7 mg/dL 2.3-4.7 604) Pediatrics Physician ID Cherelle LÓPEZ LBASIC METABOLIC [id number] 04:56:24 Test Item Value Reference Range Interpretation [...] not appl icable for dialysis patien ts Pediatrics Physician ID - MARIBEL [id number] 10:33:28 Test Item Value Reference Range Interpretation Comments PHOSPHORUS (BEAKER) (test code = 3.0 mg/dL 2.3-4.7 604) Pediatrics Physician ID Cherelle TINSLEY MBASIC METABOLIC [id number] 10:33:27 Test Item Value Reference Range Interpretation [...] not as accur ate as Creatinine Kari hnuter in predicting glom erular filtration rate . Estimated GFR is not appl icable for dialysis patien ts Pediatrics Physician ID - ALVINA [id number] 10:33:27 Test Item Value Reference Range Interpretation Comments MAGNESIUM (BEAKER) (test code = 1.7 mg/dL 1.6-2.6 627) Pediatrics Physician ID - ALVINA MCBC W/PLT COUNT & AUTO [id number] 10:29:43 Test Item Value Reference Range Interpretation [...] PERCENT (BEAKER) (test code = 2801) SPIN/CONCENTRATION [id number] 06:56:34 Test Item Value Reference Range Interpretation Comments Concentration charged (test code = Done 2656) [facility] [id number] 06:56:34 Test Item Value Reference Range Interpretation Comments Concentration charged (test code = Done 2656) [facility] [id number] 06:56:34 Test Item Value Reference Range Interpretation Comments Concentration charged (test code = Done 2656) [facility] [id number] 06:56:34 Test Item Value Reference Range Interpretation Comments Concentration charged (test code = Done 2656) [facility] [id number] 06:56:34 Test Item Value Reference Range Interpretation Comments Concentration charged (test code = Done 2657) [facility] [id number] 06:56:34 Test Item Value Reference Range Interpretation Comments Concentration charged (test code = Done 2657) [facility] [id number] 06:56:34 Test Item Value Reference Range Interpretation Comments Concentration charged (test code = Done 2657) [facility] [id number] 06:56:34 Test Item Value Reference Range Interpretation Comments Concentration charged (test code = Done 2657) [facility] [id number] 06:56:34 Test Item Value Reference Range Interpretation Comments Concentration charged (test code = Done 2657) [facility] [id number] 06:56:34 Test Item Value Reference Range Interpretation Comments Concentration charged (test code = Done 2657) [facility] [id number] 06:56:34 Test Item Value Reference Range Interpretation Comments CONCENTRATION CHARGED (BEAKER) (test Done code = 2657) SARS-CoV2/RT-PCR (Asymptomatic ONLY)2022-02-07 12:35:45 Test Item Value Reference Range Interpretation Comments SARS-COV2/RT-PCR Negative Not Detected, (test code = Negative, See 17048-2) external report for linked test SARS-COV-2 [facility] PERFORMING [facility] (test code = 16917-2) IDALIA (test code = Negative result for [...] of the Act. Fact Sheet for Healthcare Providers:https://www.[employer]/sites/default/f anup/product/documents/F act_Sheet_HC_Providers_L ode_TCML-QaX-0.pdf Fact Sheet for Healthcare Patients:https://www.[employer]/sites/default/fi les/product/documents/Fa ct_Sheet_Patients_Lyra_S ARS-CoV-2.pdf Performing Laboratory:[facility], [place] [address] [place], [place] [address]ARS-CoV2/RT-PCR (Asymptomatic ONLY)2022-02-07 12:35:45 Test Item Value Reference Range Interpretation Comments SARS-COV2/RT-PCR Negative Not Detected, (test code = Negative, See 92158-0) external report for linked test SARS-COV-2 [facility] PERFORM[facility] (test code = 42725-0) IDALIA (test code = Negative result for [...] of the Act. Fact Sheet for Healthcare Providers:https://www.[employer]/sites/default/f anup/product/documents/F act_Sheet_HC_Providers_L qyv_FCAQ-WnG-7.pdf Fact Sheet for Healthcare Patients:https://www.[employer]/sites/default/fi les/product/documents/Fa ct_Sheet_Patients_Lyra_S ARS-CoV-2.pdf Performing Laboratory:[facility] [place] [address] [facility] (Asymptomatic ONLY)2022-02-07 12:35:45 Test Item Value Reference Range Interpretation Comments SARS-COV2/RT-PCR Negative Not Detected, (test code = Negative, See 74091-7) external report for linked test SARS-COV-2 [facility] PERFORM[facility] (test code = 74640-1) IDALIA (test code = Negative result for [...] of the Act. Fact Sheet for Healthcare Providers:https://www.Lingoing/sites/default/f anup/product/documents/F act_Sheet_HC_Providers_L tey_VFLR-BpF-5.pdf Fact Sheet for Healthcare Patients:https://www.[employer]/sites/default/fi les/product/documents/Fa ct_Sheet_Patients_Lyra_S ARS-CoV-2.pdf Performing Laboratory:[facility] [place] [address] [facility])2022-02-07 12:35:45 Test Item Value Reference Range Interpretation Comments SARS-COV2/RT-PCR (test Negative Not Detected, Negative, code = 5694968) See external report for linked test SARS-COV-2 PERFORMING LAB [facility] SHAUNA (test code = 2023737) Negative result for this test determines that [...] of the Act.Fact Sheet for Healthcare Prov iders:https://www.Get10/sites/default/files/product/documents/Fact_Sheet_HC _Iirqiaryk_Zvtf_MNOA-ZdE-7.pdfFact Sheet for Healthcare Patients:https://www.Get10/sites/default/files/product/docume nts/Lodj_Lewve_Axkazvoh_Wyex_GHTC-CqE-5.pdfPerforming Laboratory:[facility], [place] [id number] 05:26:59 Test Item Value Reference Range Interpretation Comments MAGNESIUM (BEAKER) (test code = 1.7 mg/dL 1.6-2.6 627) Pediatrics Physician ID - ALVINA [id number] 05:26:59 Test Item Value Reference Range Interpretation Comments PHOSPHORUS (BEAKER) (test code = 3.3 mg/dL 2.3-4.7 604) Pediatrics Physician ID - ALVINA MBASIC METABOLIC [id number] 05:26:58 Test Item Value Reference Range Interpretation [...] not appl icable for dialysis patien ts Pediatrics Physician ID - ALVINA MPROTHROMBIN TIME/[id number] 04:21:01 Test Item Value Reference Range Interpretation Comments PROTIME (BEAKER) 14.9 seconds 11.9-14.2 H (test code = 759) INR (BEAKER) (test 1.24 See_Comment [Automat ed message] code = 370) The system Appwiz generated this result transmitted ref erence range: <=5.90. The reference range was not used to int erpret this result as normal/abnormal . RECOMMENDED COUMADIN/WARFARIN INR THERAPY RANGESSTANDARD DOSE: 2.0 - 3.0 Includes: PROPHYLAXIS for venous thrombosis, systemic embolization; TREATMENT for venous thrombosis and/or pulmonary embolus.HIGH RISK: Target INR is 2.5-3.5 for patients with mechanical heart valves.CBC W/PLT COUNT & AUTO [id number] 04:04:31 Test Item Value Reference Range Interpretation [...] = 2801) RAD, CHEST, 1 VIEW, NON [id number] 19:52:00Reason for exam:->post picc line insertionShould this be performed at the bedside?->Yes [facility] 2000 Sex: [...] Alicia MDReport Verified Date/Time: 02/06/2022 19:52:18 CT, [id number] 11:33:00Unlisted Reason for Exam - Click Yes and Enter Reason Below->NoIs this for enterography?->NoWill this procedure require oral contrast?->No [facility] : 2000 [...] degenerative changes of the left hip with ymhe-xw-eslz and mild bony remodeling. IMPRESSION: 1.Minimal change from 01/30/2022, rim-enhancing collections of liquid and gas near the pancreatic tail, largest in the gastrosplenic ligament measures 6.1 cm and along the left anterior pararenal space measures 4 x 2.1 cm, likely infected and grossly similar in size to 01/30/2022. 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 Signed: Felicity Novakepceferino Verified Date/Time: 02/05/2022 11:33:01 Reading Location:[facility] C013Y CT Body Reading Room MAGNESIUM 2022-02-05 05:39:00 Test Item Value Reference Range Interpretation Comments MAGNESIUM (BEAKER) (test code = 1.6 mg/dL 1.6-2.6 627) Pediatrics Physician ID - PIAYA [id number] 05:39:00 Test Item Value Reference Range Interpretation Comments PHOSPHORUS (BEAKER) (test code = 2.5 mg/dL 2.3-4.7 604) Pediatrics Physician ID - PIAYA LBASIC METABOLIC [id number] 05:38:59 Test Item Value Reference Range Interpretation [...] not appl icable for dialysis patien ts Pediatrics Physician ID - PIAYA LCBC W/PLT COUNT & AUTO [id number] 04:47:57 Test Item Value Reference Range Interpretation [...] PERCENT (BEAKER) (test code = 2801) POC-Glucose [id number] 07:40:25 Test Item Value Reference Range Interpretation Comments POC-Glucose Meter (test 153 mg/dL 70-110 H : TE STED AT [facility] code = 1538) [address] [place] [address], 770 30: Pediatrics Physician/Techni dakota ID = [id number] for RAHUL, CONCEPCION Lab Interpretation (test Abnormal code = 08660-9) [facility]-Glucose [id number] 07:40:25 Test Item Value Reference Range Interpretation Comments POC-Glucose Meter (test 153 mg/dL 70-110 H : TE STED AT [facility] code = 1538) [address] [place] [address], 770 30: Pediatrics Physician/Techni dakota ID = [id number] for RAHUL, CONCEPCION Lab Interpretation (test Abnormal code = 32946-4) [facility]-Glucose [id number] 07:40:25 Test Item Value Reference Range Interpretation Comments POC-Glucose Meter (test 153 mg/dL 70-110 H : TE STED AT [facility] code = 1538) [address] [place] [address], 770 30: Pediatrics Physician/Techni dakota ID = [id number] for RAHUL, CONCEPCION Lab Interpretation (test Abnormal code = 28291-4) [facility]-GLUCOSE [id number] 07:40:25 Test Item Value Reference Range Interpretation Comments POC-GLUCOSE METER 153 mg/dL 70-110 H : TESTED A T [facility] 6720 (BEAKER) (test code = [facility], 1538) [address]: Pediatrics Physician/Techni dakota ID = [id number] for WA DE, CONCEPCION [id number] 05:56:41 Test Item Value Reference Range Interpretation Comments PHOSPHORUS (BEAKER) (test code = 3.4 mg/dL 2.3-4.7 604) Pediatrics Physician BEATRIZ TINSLEY MBASIC METABOLIC [id number] 05:56:40 Test Item Value Reference Range Interpretation [...] not appl icable for dialysis patien ts Pediatrics Physician ID - ALVINA MCBC W/PLT COUNT & AUTO [id number] 05:19:20 Test Item Value Reference Range Interpretation [...] PERCENT (BEAKER) (test code = 2801) POCT-GLUCOSE [id number] 18:17:28 Test Item Value Reference Range Interpretation Comments POC-GLUCOSE METER 119 mg/dL 70-110 H : TESTED A T [facility] 6720 (BEAKER) (test code = DONNA CHARLES [place], 1538) [address]: Pediatrics Physician/Techni dakota ID = [id number] for [place] Melia Arroyo, FLUORO, NON-SPECIFIC, UP TO 1 [id number] 12:15:00Reason for exam:- >Pancreatitis with fluid collection [facility] : 2000 Sex: MAn imaging unit was utilized for this procedure. No radiologist interpretation was requested. Refer to the EMR for findings. Refer to PACS for any patient radiation dose information.[id number] 06:20:54 Test Item Value Reference Range Interpretation Comments PHOSPHORUS (BEAKER) (test code = 4.1 mg/dL 2.3-4.7 604) Pediatrics Physician ID - BSBASIC METABOLIC [id number] 06:20:53 Test Item Value Reference Range Interpretation [...] not appl icable for dialysis patien ts Pediatrics Physician ID - BSCBC W/PLT COUNT & AUTO [id number] 06:17:18 Test Item Value Reference Range Interpretation [...] PERCENT (BEAKER) (test code = 2801) PROTHROMBIN TIME/[id number] 05:56:55 Test Item Value Reference Range Interpretation Comments PROTIME (BEAKER) 14.6 seconds 11.9-14.2 H (test code = 759) INR (BEAKER) (test 1.21 See_Comment [Automat ed message] code = 370) The system Appwiz generated this result transmitted ref erence range: <=5.90. The reference range was not used to int erpret this result as normal/abnormal . RECOMMENDED COUMADIN/WARFARIN INR THERAPY RANGESSTANDARD DOSE: 2.0 - 3.0 Includes: PROPHYLAXIS for venous thrombosis, systemic embolization; TREATMENT for venous thrombosis and/or pulmonary embolus.HIGH RISK: Target INR is 2.5-3.5 for patients with mechanical heart valves.SARS-COV2/RT-PCR ([facility]) 2022-02-01 11:35:08 Test Item Value Reference Range Interpretation Comments SARS-COV2/RT-PCR Negative Negative The SARS-Co V-2 target (test code = nucleic acids a re not 3589993) detected in thi s specimen. Negative result [...] revoked sooner. Fact Sheet for Healthcare Providers: https://www.Just Eat m/Documents/Xpert%20Xpress%20SARS%20CoV-2/Fact%20Sheets/302-3802%41BXVK-ZHM-0%20 HEALTHCARE%20PROVIDERS%20FACT%20SHEET.pdf Fact Sheet for Healthcare Patients: https://www.S[employer]/Documents/Xpert%20Xp ress%20SARS%20CoV-2/Fact%20Sheets/302-3801%93DGQL-ZOD-6%20PATIENT%20FACT%20SHEET .[id number] 08:00:14 Test Item Value Reference Range Interpretation Comments PHOSPHORUS (BEAKER) (test code = 3.9 mg/dL 2.3-4.7 604) Pediatrics Physician ID - PIAYA LBASIC METABOLIC [id number] 08:00:13 Test Item Value Reference Range Interpretation [...] not appl icable for dialysis patien ts Pediatrics Physician ID - PIAYA LCBC W/PLT COUNT & AUTO [id number] 06:53:15 Test Item Value Reference Range Interpretation [...] PERCENT (BEAKER) (test code = 2801) PROTHROMBIN TIME/[id number] 06:23:20 Test Item Value Reference Range Interpretation Comments PROTIME (BEAKER) 14.1 seconds 11.9-14.2 (test code = 759) INR (BEAKER) (test 1.16 See_Comment [Automat ed message] code = 370) The system Appwiz generated this result transmitted ref erence range: <=5.90. The reference range was not used to int erpret this result as normal/abnormal . RECOMMENDED COUMADIN/WARFARIN INR THERAPY RANGESSTANDARD DOSE: 2.0 - 3.0 Includes: PROPHYLAXIS for venous thrombosis, systemic embolization; TREATMENT for venous thrombosis and/or pulmonary embolus.HIGH RISK: Target INR is 2.5-3.5 for patients with mechanical heart valves.CT, [id number] 11:26:00Unlisted Reason for Exam - Click Yes and Enter Reason Below->NoIs this for enterography?->NoWill this procedure require oral contrast?->Yes [facility] 2000 Sex: [...] Young MDReport Verified Date/Time:01/31/2022 11:26:33 Reading Location: [address] Body Reading Room BASIC METABOLIC [id number] 07:01:22 Test Item Value Reference Range Interpretation [...] not appl icable for dialysis patien ts Pediatrics Physician ID - ALVINA [id number] 07:01:21 Test Item Value Reference Range Interpretation Comments PHOSPHORUS (BEAKER) 3.6 mg/dL 2.3-4.7 Specimen slightly (test code = 604) hemolyzed Pediatrics Physician ID - ALVINA MCBC W/PLT COUNT & AUTO [id number] 06:23:58 Test Item Value Reference Range Interpretation [...] H PERCENT (BEAKER) (test code = 2801) [id number] 07:03:32 Test Item Value Reference Range Interpretation Comments PHOSPHORUS (BEAKER) 3.5 mg/dL 2.3-4.7 Specimen slightly (test code = 604) hemolyzed Pediatrics Physician ID Cherelle LÓPEZ LBASIC METABOLIC [id number] 07:03:32 Test Item Value Reference Range Interpretation [...] i s not applicable for dialysis patients Pediatrics Physician ID - MARIBEL LCBC W/PLT COUNT & AUTO [id number] 06:30:07 Test Item Value Reference Range Interpretation [...] H PERCENT (BEAKER) (test code = 2801) [id number] 08:28:15 Test Item Value Reference Range Interpretation Comments PHOSPHORUS (BEAKER) 3.5 mg/dL 2.3-4.7 Specimen slightly (test code = 604) hemolyzed Pediatrics Physician ID - SHREE WBASIC METABOLIC [id number] 05:22:30 Test Item Value Reference Range Interpretation [...] not appl icable for dialysis patien ts Pediatrics Physician ID - SHREE WCBC W/PLT COUNT & AUTO [id number] 04:54:08 Test Item Value Reference Range Interpretation [...] (BEAKER) (test code = 2801) BASIC METABOLIC [id number] 15:33:00 Test Item Value Reference Range Interpretation [...] not appl icable for dialysis patien ts Pediatrics Physician ID - VDEWZVJGTDHUJLF5363-08-30 15:32:59 Test Item Value Reference Range Interpretation Comments PHOSPHORUS (BEAKER) 2.1 mg/dL 2.3-4.7 L Specimen slightly (test code = 604) hemolyzed Pediatrics Physician ID - MITCHCBC W/PLT COUNT & AUTO [id number] 15:08:06 Test Item Value Reference Range Interpretation [...] PERCENT (BEAKER) (test code = 2801) SARS-COV2/RT-PCR ([facility])2022-01-27 12:45:59 Test Item Value Reference Range Interpretation Comments SARS-COV2/RT-PCR Negative Negative The SARS-Co V-2 target (test code = nucleic acids a re not 9930183) detected in thi s specimen. Negative result [...] revoked sooner. Fact Sheet for Healthcare Providers: https://www.Just Eat m/Documents/Xpert%20Xpress%20SARS%20CoV-2/Fact%20Sheets/302-3802%97ZAFC-MPZ-5%20 HEALTHCARE%20PROVIDERS%20FACT%20SHEET.pdf Fact Sheet for Healthcare Patients: https://www.S[employer]/Documents/Xpert%20Xp ress%20SARS%20CoV-2/Fact%20Sheets/302-3801%13FDHW-VYW-4%20PATIENT%20FACT%20SHEET .pdfCOMPREHENSIVE METABOLIC [id number] 09:49:55 Test Item Value Reference Range Interpretation [...] not appl icable for dialysis patien ts Pediatrics Physician ID - ALVINA MOperator ID - ALVINA [id number] 09:45:42 Test Item Value Reference Range Interpretation Comments MAGNESIUM (BEAKER) (test code = 1.6 mg/dL 1.6-2.6 627) Pediatrics Physician ID - ALVINA [id number] 09:45:42 Test Item Value Reference Range Interpretation Comments PHOSPHORUS (BEAKER) (test code = 2.2 mg/dL 2.3-4.7 L 604) Pediatrics Physician ID - ALVINA MCBC W/PLT COUNT & AUTO [id number] 06:05:25 Test Item Value Reference Range Interpretation [...] code = 2801) RAD, KNEE, 3 VIEWS, [id number] 14:50:00Is this procedure to be performed with weight bearing?->Non-Weight BearingReason for exam:->knee pain [facility] 2000 Sex: MFINALREPORT RAD, KNEE, 3 VIEWS, RIGHT CLINICAL INDICATION: knee pain COMPARISON: None FINDINGS: 3views of the right knee. There is no fracture or malalignment. Moderate joint space narrowing in the femorotibial spaces. No joint fluid is demonstrated. Surrounding soft tissues are unremarkable. IMPRESSION: No acute fracture or malalignment of the knee Signed: Lew Garciaconnecticut hospice Verified Date/Time: 01/26/2022 14:50:13 Reading Location: [address] Reading Room RAD, KNEE, 3 VIEWS, [id number] 14:00:00Is this procedure to be performed with weight bearing?->Non-Weight BearingReason for exam:->knee pain [facility] : 2000 [...] MDReport Verified Date/Time: 01/26/2022 14:00:42 Reading Location: [address] Reading Room ANTI-DNA [id number] 12:29:53 Test Item Value Reference Range Interpretation Comments ANTI-DNA TITER (BEAKER) (test code = :160 1553) DOUBLE-STRANDED DNA (DSDNA) [id number] 12:29:42 Test Item Value Reference Range Interpretation Comments ANTI-DNA DS (BEAKER) (test code = Positive Negative 1055) COMPLEMENT COMPONENT [id number] 12:26:40 Test Item Value Reference Range Interpretation Comments C3 COMPLEMENT (BEAKER) (test code = 55 mg/dL 82-193 L 393) Pediatrics Physician ID - TANYA MCOMPLEMENT COMPONENT [id number] 12:26:39 Test Item Value Reference Range Interpretation Comments C4 COMPLEMENT (BEAKER) (test code = 6 mg/dL 15-57 L 394) Pediatrics Physician ID - TANYA MHEMOGLOBIN [id number] 09:30:34 Test Item Value Reference Range Interpretation [...] 5.7- 6.4% indicates increased risk for diabetes (prediabetes)."Pediatrics Physician ID - ADM [id number] 07:56:27 Test Item Value Reference Range Interpretation Comments MAGNESIUM (BEAKER) (test code = 1.9 mg/dL 1.6-2.6 627) Pediatrics Physician ID - ALVINA [id number] 07:56:27 Test Item Value Reference Range Interpretation Comments PHOSPHORUS (BEAKER) (test code = 3.5 mg/dL 2.3-4.7 604) Pediatrics Physician ID - ALVINA MCOMPREHENSIVE METABOLIC [id number] 07:56:26 Test Item Value Reference Range Interpretation [...] not appl icable for dialysis patien ts Pediatrics Physician ID - ALVINA MCBC W/PLT COUNT & AUTO [id number] 06:42:48 Test Item Value Reference Range Interpretation [...] PERCENT (BEAKER) (test code = 2801) Urinalysis w/Usrhrawzcgg0103-70-78 01:12:24 Test Item Value Reference Range Interpretation Comments Color, UA (test code Yellow = 5778-6) Clarity, UA (test Clear code = 5767-9) Specific [place], UA 1.017 1.001-1.035 (test code = 5811-5) pH, UA (test code = 6.0 5.0-8.0 5803-2) Protein, UA (test Negative Negative code = 62803-4) Glucose, UA (test Negative Negative code = 365) Ketones, UA (test Trace Negative A code = 2514-8) Bilirubin, UA (test Negative Negative code = 67996-7) Blood, UA (test code Negative Negative = 95932-7) Nitrite, UA (test Negative Negative code = 5802-4) Leukocytes, UA (test Negative Negative code = 5799-2) Urobilinogen, UA 3.0 mg/dL 0.2-1.0 H (test code = 50889-2) RBC, UA (test code = 1 See_Comment [Autom ated 26154-0) message] The system which generated this result [...] Bacteria, UA (test None Seen code = 19967-9) Mucus (test code = Few 8247-9) Crystals, Urine (test Rare code = 06331-9) Specimen Source (test code = 2795) IDALIA (test code = IDALIA) Pediatrics Physician ID - [auto]Pediatrics Physician ID - tech Lab Interpretation Abnormal (test code = 83131-9) [facility]/Lzmfbnkysms3819-66-42 01:12:24 Test Item Value Reference Range Interpretation Comments Color, UA (test code Yellow = 5778-6) Clarity, UA (test Clear code = 5767-9) Specific [place], UA 1.017 1.001-1.035 (test code = 5811-5) pH, UA (test code = 6.0 5.0-8.0 5803-2) Protein, UA (test Negative Negative code = 39624-6) Glucose, UA (test Negative Negative code = 365) Ketones, UA (test Trace Negative A code = 2514-8) Bilirubin, UA (test Negative Negative code = 48108-1) Blood, UA (test code Negative Negative = 82791-5) Nitrite, UA (test Negative Negative code = 5802-4) Leukocytes, UA (test Negative Negative code = 5799-2) Urobilinogen, UA 3.0 mg/dL 0.2-1.0 H (test code = 66727-5) RBC, UA (test code = 1 See_Comment [Autom ated 59833-8) message] The system which generated this result [...] Bacteria, UA (test None Seen code = 22628-4) Mucus (test code = Few 8247-9) Crystals, Urine (test Rare code = 20677-3) Specimen Source (test code = 2795) IDALIA (test code = IDALIA) Pediatrics Physician ID - [auto]Pediatrics Physician ID - tech Lab Interpretation Abnormal (test code = 33644-0) [facility]Ur[facility]/Augaiithsou9638-62-05 01:12:24 Test Item Value Reference Range Interpretation Comments Color, UA (test code Yellow = 5778-6) Clarity, UA (test Clear code = 5767-9) Specific [place], UA 1.017 1.001-1.035 (test code = 5811-5) pH, UA (test code = 6.0 5.0-8.0 5803-2) Protein, UA (test Negative Negative code = 92301-5) Glucose, UA (test Negative Negative code = 365) Ketones, UA (test Trace Negative A code = 2514-8) Bilirubin, UA (test Negative Negative code = 63338-4) Blood, UA (test code Negative Negative = 99223-2) Nitrite, UA (test Negative Negative code = 5802-4) Leukocytes, UA (test Negative Negative code = 5799-2) Urobilinogen, UA 3.0 mg/dL 0.2-1.0 H (test code = 82681-3) RBC, UA (test code = 1 See_Comment [Autom ated 07899-0) message] The system which generated this result [...] Bacteria, UA (test None Seen code = 50269-6) Mucus (test code = Few 8247-9) Crystals, Urine (test Rare code = 07323-8) Specimen Source (test code = 2795) IDALIA (test code = IDALIA) Pediatrics Physician ID - [auto]Pediatrics Physician ID - tech Lab Interpretation Abnormal (test code = 58406-4) [facility]URINALYSIS W/ [id number] 01:12:24 Test Item Value Reference Range Interpretation [...] = 1521) SOURCE(BEAKER) (test code = 2795) Pediatrics Physician ID - [auto]Pediatrics Physician ID - techPROTHROMBIN TIME/[id number] 11:13:08 Test Item Value Reference Range Interpretation Comments PROTIME (BEAKER) 16.0 seconds 11.9-14.2 H (test code = 759) INR (BEAKER) (test 1.37 See_Comment [Automat ed message] code = 370) The system Appwiz generated this result transmitted ref erence range: <=5.90. The reference range was not used to int erpret this result as normal/abnormal . RECOMMENDED COUMADIN/WARFARIN INR THERAPY RANGESSTANDARD DOSE: 2.0 - 3.0 Includes: PROPHYLAXIS for venous thrombosis, systemic embolization; TREATMENT for venous thrombosis and/or pulmonary embolus.HIGH RISK: Target INR is 2.5-3.5 for patients with mechanical heart valves.HEPATIC FUNCTION [id number] 08:23:09 Test Item Value Reference Range Interpretation [...] Specimen slightly (test code = 347) hemolyzed Pediatrics Physician ID - ALVINA [id number] 08:20:14 Test Item Value Reference Range Interpretation Comments PHOSPHORUS (BEAKER) 4.9 mg/dL 2.3-4.7 H Specimen slightly (test code = 604) hemolyzed Pediatrics Physician ID - ALVINA [id number] 08:20:14 Test Item Value Reference Range Interpretation Comments MAGNESIUM (BEAKER) 1.5 mg/dL 1.6-2.6 L Specimen slightly (test code = 627) hemolyzed Pediatrics Physician ID - ALVINA MLACTIC ACID, [id number] 07:47:42 Test Item Value Reference Range Interpretation Comments LACTATE BLOOD VENOUS 1.04 mmol/L 0.50-2.20 Specime n slightly (2) (BEAKER) (test hemolyzed code = 5702) Pediatrics Physician ID - ALVINA MBASIC METABOLIC [id number] 07:28:57 Test Item Value Reference Range Interpretation [...] not appl icable for dialysis patien ts Pediatrics Physician ID - ALVINA MPT/WMPF9804-64-15 07:01:08 Test Item Value Reference Range Interpretation [...] mechanical heart valves.CBC W/PLT COUNT & AUTO [id number] 06:52:58 Test Item Value Reference Range Interpretation [...] Not Detected, (test code = Negative, See 48950-6) external report for linked test SARS-COV-2 [facility] PERFORMING LAB (test code = 65577-7) IDALIA (test code = Negative result for [...] of the Act. Fact Sheet for Healthcare Providers:https://www.Lingoing/sites/default/f anup/product/documents/F act_Sheet_HC_Providers_L lbw_UPBZ-AsX-9.pdf Fact Sheet for Healthcare Patients:https://www.[employer]/sites/default/fi les/product/documents/Fa ct_Sheet_Patients_Lyra_S ARS-CoV-2.pdf Performing Laboratory:[address] [place] [address] [facility])2021-12-25 10:50:35 Test Item Value Reference Range Interpretation Comments SARS-COV2/RT-PCR (test Negative Not Detected, Negative, code = 3083393) See external report for linked test SARS-COV-2 PERFORMING LAB [facility] SHAUNA (test code = 8148618) Negative result for this test determines that [...] of the Act.Fact Sheet for Healthcare Prov iders:https://www.Get10/sites/default/files/product/documents/Fact_Sheet_HC _Qmbytspod_Aqzt_HNJY-PcD-4.pdfFact Sheet for Healthcare Patients:https://www.Get[employer]/sites/default/files/product/docume nts/Pwjy_Jhznb_Qydjbtzv_Dkxc_ORJJ-NlK-5.pdfPerforming Laboratory:[facility] [place], [place] [address].[place], [place] [address]DEPKZ METABOLIC PANEL 2021-12-25 05:39:15 Test Item Value [...] not appl icable for dialysis patien ts Pediatrics Physician ID - PIAYA LCBC W/PLT COUNT & AUTO [id number] 04:50:53 Test Item Value Reference Range Interpretation [...] (BEAKER) (test code = 2801) BASIC METABOLIC [id number] 04:18:37 Test Item Value Reference Range Interpretation [...] not appl icable for dialysis patien ts Pediatrics Physician ID - ALVINA MCBC W/PLT COUNT & AUTO [id number] 04:02:11 Test Item Value Reference Range Interpretation [...] (BEAKER) (test code = 2801) BASIC METABOLIC [id number] 03:48:40 Test Item Value Reference Range Interpretation [...] not appl icable for dialysis patien ts Pediatrics Physician ID - BSCBC W/PLT COUNT & AUTO [id number] 03:25:33 Test Item Value Reference Range Interpretation [...] (BEAKER) (test code = 2801) COMPLEMENT COMPONENT [id number] 05:12:57 Test Item Value Reference Range Interpretation Comments C3 COMPLEMENT (BEAKER) (test code = 58 mg/dL 82-193 L 393) Pediatrics Physician ID - MARIBEL LCOMPLEMENT COMPONENT [id number] 05:12:56 Test Item Value Reference Range Interpretation Comments C4 COMPLEMENT (BEAKER) (test code = 5 mg/dL 15-57 L 394) Pediatrics Physician ID Cherelle LÓPEZ LBASIC METABOLIC [id number] 04:43:01 Test Item Value Reference Range Interpretation [...] not appl icable for dialysis patien ts Pediatrics Physician ID - ALVINA M-CBC W/PLT COUNT & AUTO [id number] 04:23:52 Test Item Value Reference Range Interpretation [...] (BEAKER) (test code = 2801) BASIC METABOLIC [id number] 06:45:19 Test Item Value Reference Range Interpretation [...] not appl icable for dialysis patien ts Pediatrics Physician ID - PIAYA LCBC W/PLT COUNT & AUTO [id number] 06:29:46 Test Item Value Reference Range Interpretation [...] PERCENT (BEAKER) (test code = 2801) CT, [id number] 15:01:00Unlisted Reason for Exam - Click Yes and Enter Reason Below->Nointraabdominal abscessesIs this for enterography?->NoWill this procedure require oral contrast?->Yes [facility] : 2000 Sex: MFINAL REPORT CT of [...] Hadley MDReportVerified Date/Time: 12/20/2021 15:01:52 Reading Location: [facility] C013X [facility] Consult Reading Room Jelly ctronically signed by: NEVIN HADLEY M.D. on 12/20/2021 03:01 PMBASIC METABOLIC [id number] 06:08:38 Test Item Value Reference Range Interpretation [...] not appl icable for dialysis patien ts Pediatrics Physician ID - BISI [id number] 06:08:38 Test Item Value Reference Range Interpretation Comments MAGNESIUM (BEAKER) (test code = 1.7 mg/dL 1.6-2.6 627) Pediatrics Physician ID - BISI GCBC W/PLT COUNT & AUTO [id number] 05:55:13 Test Item Value Reference Range Interpretation [...] 0-1 PERCENT (BEAKER) (test code = 2801) [id number] 05:57:20 Test Item Value Reference Range Interpretation Comments MAGNESIUM (BEAKER) (test code = 1.8 mg/dL 1.6-2.6 627) Pediatrics Physician ID - PIAYA LBASIC METABOLIC [id number] 05:57:19 Test Item Value Reference Range Interpretation [...] not appl icable for dialysis patien ts Pediatrics Physician ID - PIAYA LCBC W/PLT COUNT & AUTO [id number] 05:05:06 Test Item Value Reference Range Interpretation [...] 0-1 PERCENT (BEAKER) (test code = 2801) [id number] 05:14:32 Test Item Value Reference Range Interpretation Comments MAGNESIUM (BEAKER) (test code = 1.6 mg/dL 1.6-2.6 627) Pediatrics Physician ID - DBBASIC METABOLIC [id number] 05:14:31 Test Item Value Reference Range Interpretation [...] not appl icable for dialysis patien ts Pediatrics Physician ID - DBCBC W/PLT COUNT & AUTO [id number] 04:29:19 Test Item Value Reference Range Interpretation [...] PERCENT (BEAKER) (test code = 2801) SARS-COV2/RT-PCR ([facility])2021-12-18 02:02:45 Test Item Value Reference Range Interpretation Comments SARS-COV2/RT-PCR (test Negative Not Detected, Negative, code = 7066136) See external report for linked test SARS-COV-2 PERFORMING LAB [facility] (test code = 3718280) Negative result for this test determines that [...] of the Act.Fact Sheet for Healthcare Prov iders:https://www.Get10/sites/default/files/product/documents/Fact_Sheet_HC _Sbqpcjpya_Fqrt_LBIZ-TwM-8.pdfFact Sheet for Healthcare Patients:https://www.Get10/sites/default/files/product/docume nts/Rfow_Nyufh_Ajhkmmen_Ggks_BDJC-RjZ-7.pdfPerforming Laboratory:[facility] [place] [address] 44039HVNPCKDO KINASE (CK) 2021-12-17 07:03:15 Test Item Value Reference Range Interpretation Comments CREATINE KINASE TOTAL (BEAKER) (test < U/L 29-200 L code = 380) Pediatrics Physician ID - BISI GBASIC METABOLIC [id number] 06:48:47 Test Item Value Reference Range Interpretation [...] not appl icable for dialysis patien ts Pediatrics Physician ID - BISI [id number] 06:48:47 Test Item Value Reference Range Interpretation Comments MAGNESIUM (BEAKER) (test code = 1.7 mg/dL 1.6-2.6 627) Pediatrics Physician ID - BISI GCBC W/PLT COUNT & AUTO [id number] 06:18:24 Test Item Value Reference Range Interpretation [...] (BEAKER) (test code = 2801) HEPATIC FUNCTION [id number] 05:37:52 Test Item Value Reference Range Interpretation [...] (test code = 22 U/L 6-55 347) Pediatrics Physician ID - ALVINA MBASIC METABOLIC [id number] 05:37:51 Test Item Value Reference Range Interpretation [...] not appl icable for dialysis patien ts Pediatrics Physician ID - ALVINA [id number] 05:37:51 Test Item Value Reference Range Interpretation Comments MAGNESIUM (BEAKER) (test code = 1.8 mg/dL 1.6-2.6 627) Pediatrics Physician ID - ALVINA MCBC W/PLT COUNT & AUTO [id number] 05:19:35 Test Item Value Reference Range Interpretation [...] code = 2801) WOUND CULTURE + GRAM [id number] 15:11:36 Test Item Value Reference Range Interpretation [...] d message] code = 143) The system Appw[employer] generated this result transmitted ref erence range: Suscepti ble 0-2 , Dose Depe ndent Susceptible <0 or >2 , Resi. The ref erence range was not u sed to interpret this result as normal/abnor mal. Itraconazole (test See_Comment S [Automat ed message] code = 146) The system Appw[employer] generated this result transmitted ref erence range: Suscepti ble 0-0.125 , Dose Dependent Susce ptible <0 or >.125. Th e reference range was not used to int erpret this result as normal/abnormal . Micafungin (test See_Comment S [Automated message] code = 148) The system Appw[employer] generated this result transmitted ref erence range: Suscepti ble 0-0.25 , Non-susceptible <0 or >.25 , Resistan t . The reference r colby was not used to interpret this result as normal/abnor mal. Posaconazole (test See_Comment [Automat ed message] code = 152) The system Appwiz generated this result transmitted ref erence range: Suscepti ble >0-0 , No Interpretations Established <=0 or >0 . The reference range was not used to interpret this result as normal/abnor mal. Voriconazole (test See_Comment S [Automat ed message] code = 153) The system Appwiz generated this result transmitted ref erence range: [...] d message] code = 143) The system Appwiz generated this result transmitted ref erence range: Suscepti ble 0-0 , Dose Depe ndent Susceptible <0 or >0 , Resi. The ref erence range was not u sed to interpret this result as normal/abnor mal. Itraconazole (test See_Comment [Automat ed message] code = 146) The system Appwiz generated this result transmitted ref erence range: Suscepti ble 0-0.125 , Dose Dependent Susce ptible <0 or >.125. Th e reference range was not used to int erpret this result as normal/abnormal . Micafungin (test See_Comment S [Automated message] code = 148) The system Appwiz generated this result transmitted ref erence range: Suscepti ble 0-0.06 , Non-susceptible <0 or >.06 , Resistan t . The reference r colby was not used to interpret this result as normal/abnor mal. Posaconazole (test See_Comment [Automat ed message] code = 1522) The system Appwiz generated this result transmitted ref erence range: Suscepti ble >0-0 , No Interpretations Established <=0 or >0 . The reference range was not used to interpret this result as normal/abnor mal. Voriconazole (test See_Comment [Automat ed message] code = 153) The system Appwiz generated this result transmitted ref erence range: Suscepti ble >0-0 , Dose Dep endent Susceptible <=0 or >0 , No. The refer ence range was not u sed to interpret this result as normal/abnor mal. GRAM STAIN RESULT 4+ WBCs (BEAKER) (test code = 1123) GRAM STAIN RESULT <1+ budding (BEAKER) (test code yeast = 757730) [id number] 13:41:55 Test Item Value Reference Range Interpretation Comments MAGNESIUM (BEAKER) 1.6 mg/dL 1.6-2.6 Specimen slightly (test code = 627) hemolyzed Pediatrics Physician ID - BSBASIC METABOLIC [id number] 13:41:55 Test Item Value Reference Range Interpretation [...] not as accur ate as Creatinine Kari hrarison in predicting glom erular filtration rate . Estimated GFR is not appl icable for dialysis patien ts Pediatrics Physician ID - BSCBC (HEMOGRAM ONLY)2021-12-15 12:10:46 Test [...] = 413) RAD, CHEST, 1 VIEW, NON [id number] 11:09:00Reason for exam:->PICC tip location verification.Should this be performed at the bedside?->Yes [facility] : 2000 Sex: MFINAL REPORT CLINICAL HISTORY:PICC tip location verification. TECHNIQUE: 1 view of the chest. COMPARISON: 09/28/2021 IMPRESSION: The tip of the right PICC line is at the cavoatrial junction. There are no focal infiltrates or effusions. The cardiomediastinal silhouette is within normal limits for size. Signed: D[facility]ie [facility] Verified Date/Time: 12/15/2021 11:09:16 Reading Location: [facility] Radiology Reading Room [id number] 07:04:44 Test Item Value Reference Range Interpretation Comments MAGNESIUM (BEAKER) (test code = 1.8 mg/dL 1.6-2.6 627) Pediatrics Physician ID - SHREE WCT, [id number] 13:51:00Unlisted Reason for Exam - Click Yes and Enter Reason Below->NoIs this for enterography?->NoWill this procedure require oral contrast?->No [facility] : 2000 Sex: [...] [facility] Imaging Reading Room - [place] [address] ANTI-DNA [id number] 12:28:11 Test Item Value Reference Range Interpretation Comments ANTI-DNA TITER (BEAKER) (test code = :80 1553) DOUBLE-STRANDED DNA (DSDNA) [id number] 12:27:59 Test Item Value Reference Range Interpretation Comments ANTI-DNA DS (BEAKER) (test code = Positive Negative 1055) CBC W/PLT COUNT & AUTO [id number] 06:03:24 Test Item Value Reference Range Interpretation [...] code = 2801) CT, DRAINAGE W/ CATH [id number] 12:21:00Reason for exam:->undrained fluid collections in abdomen [facility]AMILEVANGIE : 2000 Sex: MFINAL REPORT CT guided drainage catheter placement, 12/11/2021 Clinical History: Right-sided abdominal fluid collection. Modality: CT. Filter Helper: Shira. Machine Maintenance Servicer: None. Sedation: Versed 1 mg and fentanyl [...] was achieved with 1% lidocaine, a 5 Tanzanian one-step catheter was advanced into the fluid collection under CT guidance. Aspiration was attempted through this catheter, but only a small amount of fluid could be obtained. After a small skin incision was made, a guidewire was advanced into the fluidcollection. Subsequently, a soft tissue tract was created with 8 Tanzanian dilator. After the tract wasdilated, an 8 Tanzanian all-purpose drainage catheter was placed into the [...] MDReport Verified Date/Time: 12/13/2021 12:21:52 Reading Location: [facility] Reading Room BASIC METABOLIC [id number] 08:39:36 Test Item Value Reference Range Interpretation [...] S NOT APPLICABLE FOR DIALYSIS PATIEN TS. Pediatrics Physician ID - [id number] 08:39:36 Test Item Value Reference Range Interpretation Comments MAGNESIUM (BEAKER) (test code = 1.7 mg/dL 1.6-2.6 627) Pediatrics Physician ID - BSPOC-Glucose ulqyn0489-23-02 07:42:54 Test Item Value Reference Range Interpretation Comments POC-Glucose Meter (test 128 mg/dL 70-110 H : TE STED AT [facility] code = 1538) [address] [facility] [place], [address]: Pediatrics Physician/Techni dakota ID = [id number] for [facility] Lab Interpretation (test Abnormal code = 80454-8) [facility] [id number] 07:42:54 Test Item Value Reference Range Interpretation Comments POC-GLUCOSE METER 128 mg/dL 70-110 H : TESTED A T [facility] [address]20 (BEAKER) (test code = DONNA CHARLES [place], 1538) [address]: Pediatrics Physician/Techni dakota ID = [id number] for [facility] HONEYCUTT BLOOD [id number] 15:01:19 Test Item Value Reference Range Interpretation Comments CULTURE (BEAKER) (test No growth in 5 days code = 1095) BLOOD [id number] 15:01:19 Test Item Value Reference Range Interpretation [...] code C. di fficile GDH Toxin: = 9049793) NegativeC. diff icile GDH Antigen: Negati veKit Lot: [id number] Date : 08/22/2023 c [id number] 12:27:53Scan ResultComment: C. difficile GDH Toxin: NegativeC. difficile GDH Antigen: Negative Kit Lot: [id number] Date[facility] [id number] 12:27:53Scan ResultComment: C. difficile GDH Toxin: NegativeC. difficile GDH Antigen: Negative Kit Lot: [id number] Date: 08/22/2023[facility] [id number] 12:27:53Scan ResultComment: C. difficile GDH Toxin: NegativeC. difficile GDH Antigen: Negative Kit Lot: [id number] Date: 08/22/2023[facility] [id number] 12:27:53Scan ResultComment: C. difficile GDH Toxin: NegativeC. difficile GDH Antigen: Negative Kit Lot: [id number] Date: 08/22/2023[facility] [id number] 12:27:53Scan ResultComment: C. difficile GDH Toxin: NegativeC. difficile GDH Antigen: Negative Kit Lot: [id number] Date: 08/22/2023[facility] [id number] 12:27:53Scan ResultComment: C. difficile GDH Toxin: NegativeC. difficile GDH Antigen: Negative Kit Lot: [id number] Date: 08/22/2023[facility] [id number] 12:27:53Scan Gjhbbf7312/12/2021 12:27 PM [facility] [id number] 12:27:53Scan Fvfwkr0312/12/2021 12:27 PM [facility] [id number] 12:27:53Scan Xbvnng5512/12/2021 12:27 PM [facility] [id number] 12:27:53Scan Ofziez1912/12/2021 12:27 PM [facility] [id number] 12:27:53Scan Unnpqe2012/12/2021 12:27 PM [facility] 2021-12-12 07:18:15 Test Item Value [...] S NOT APPLICABLE FOR DIALYSIS PATIEN TS. Pediatrics Physician ID - SHREE [id number] 07:18:14 Test Item Value Reference Range Interpretation Comments MAGNESIUM (BEAKER) 1.7 mg/dL 1.6-2.6 Specimen slightly (test code = 627) hemolyzed Pediatrics Physician ID Cherelle SWANN WCBC W/PLT COUNT & AUTO [id number] 06:48:11 Test Item Value Reference Range Interpretation [...] PERCENT (BEAKER) (test code = 2801) SARS-COV2/RT-PCR ([facility])2021-12-11 08:51:50 Test Item Value Reference Range Interpretation Comments SARS-COV2/RT-PCR (test Negative Not Detected, Negative, code = 9552501) See external report for linked test SARS-COV-2 PERFORMING LAB [facility] (test code = 2960674) Negative result for this test determines that [...] of the Act.Fact Sheet for Healthcare Prov iders:https://www.Get10/sites/default/files/product/documents/Fact_Sheet_HC _Yuaukimcx_Vwek_CLGY-DmD-6.pdfFact Sheet for Healthcare Patients:https://www.Get10/sites/default/files/product/docume nts/Qzfu_Ihbog_Jxypqzvn_Vjbh_CJQA-JmL-6.pdfPerforming Laboratory:[facility] [place] [address].[place], [place] [address]UBOYA METABOLIC PANEL 2021-12-11 07:32:42 Test Item Value [...] S NOT APPLICABLE FOR DIALYSIS PATIEN TS. Pediatrics Physician ID - PIAYA [id number] 07:32:42 Test Item Value Reference Range Interpretation Comments MAGNESIUM (BEAKER) (test code = 1.7 mg/dL 1.6-2.6 627) Pediatrics Physician ID - MARIBEL VILLASEÑOR, [id number] 13:47:00Unlisted Reason for Exam - Click Yes and Enter Reason Below->NoIs this for enterography?->NoWill this procedure require oral contrast?->No [facility] : 2000 Sex: [...] Andrés Holloway MDReport Verified Date/Time: 12/10/2021 13:47:19 [id number] 08:22:12 Test Item Value Reference Range Interpretation Comments MAGNESIUM (BEAKER) (test code = 1.5 mg/dL 1.6-2.6 L 627) Pediatrics Physician ID - SHREE WBASIC METABOLIC [id number] 08:22:11 Test Item Value Reference Range Interpretation [...] S NOT APPLICABLE FOR DIALYSIS PATIEN TS. Pediatrics Physician ID - SHREE WCBC W/PLT COUNT & AUTO [id number] 05:53:31 Test Item Value Reference Range Interpretation [...] 0-1 PERCENT (BEAKER) (test code = 2801) [id number] 05:50:23 Test Item Value Reference Range Interpretation Comments MAGNESIUM (BEAKER) (test code = 1.8 mg/dL 1.6-2.6 627) Pediatrics Physician ID - BISI GBASIC METABOLIC [id number] 05:50:22 Test Item Value Reference Range Interpretation [...] S NOT APPLICABLE FOR DIALYSIS PATIEN TS. Pediatrics Physician ID - BISI GCOMPLEMENT COMPONENT [id number] 05:47:38 Test Item Value Reference Range Interpretation Comments C3 COMPLEMENT (BEAKER) (test code = 34 mg/dL 82-193 L 393) Pediatrics Physician ID - MARIBEL LCOMPLEMENT COMPONENT [id number] 05:47:37 Test Item Value Reference Range Interpretation Comments C4 COMPLEMENT (BEAKER) (test code = 6 mg/dL 15-57 L 394) Pediatrics Physician ID Cherelle LÓPEZ LPROTHROMBIN TIME/[id number] 05:32:34 Test Item Value Reference Range Interpretation Comments PROTIME (BEAKER) 16.8 seconds 11.9-14.2 H (test code = 759) INR (BEAKER) (test 1.39 See_Comment [Automat ed message] code = 370) The system [facility] h generated this result transmitted ref erence range: <=5.90. The reference range was not used to int erpret this result as normal/abnormal . RECOMMENDED COUMADIN/WARFARIN INR THERAPY RANGESSTANDARD DOSE: 2.0 - 3.0 Includes: PROPHYLAXIS for venous thrombosis, systemic embolization; TREATMENT for venous thrombosis and/or pulmonary embolus.HIGH RISK: Target INR is 2.5-3.5 for patients with mechanical heart valves.Urinalysis w/Glkdsiyjbqi6708-75-04 00:48:22 Test Item Value Reference Range Interpretation Comments Color, UA (test code Yellow = 5778-6) Clarity, UA (test Clear code = 5767-9) Specific [place], UA 1.023 1.001-1.035 (test code = 5811-5) pH, UA (test code = 6.5 5.0-8.0 5803-2) Protein, UA (test Negative Negative code = 99098-3) Glucose, UA (test 50 mg/dL Negative A code = 365) Ketones, UA (test Trace Negative A code = 2514-8) Bilirubin, UA (test Negative Negative code = 67793-5) Blood, UA (test code Negative Negative = 53517-0) Nitrite, UA (test Negative Negative code = 5802-4) Leukocytes, UA (test Trace Negative A code = 5799-2) Urobilinogen, UA 0.2 mg/dL 0.2-1.0 (test code = 35159-9) RBC, UA (test code = 2 See_Comment [Autom ated 94365-6) message] The system which generated this result [...] . Bacteria, UA (test Moderate code = 86672-7) Mucus (test code = Occasional 8247-9) Hyaline Casts, UA 4 See_Comment [Automate d (test code = 89863-2) messag e] The system which generated this result transmitted reference range : /LPF. The reference range was not used to interpret this result as normal/abnormal . Crystals, Urine (test None Seen code = 49448-4) Specimen Source (test code = 2795) IDALIA (test code = IDALIA) Pediatrics Physician ID - [auto]Pediatrics Physician ID - tech Lab Interpretation Abnormal (test code = 08848-8) [facility]/ [id number] 00:48:22 Test Item Value Reference Range Interpretation [...] = 1521) SOURCE(BEAKER) (test code = 2795) Pediatrics Physician ID - [auto]Pediatrics Physician ID - techProtein, random [id number] 23:18:26 Test Item Value Reference Range Interpretation Comments Protein, Urine (test code 21 mg/dL 0-14 H = 2888-6) IDALIA (test code = IDALIA) Pediatrics Physician ID - PIAYA L Lab Interpretation (test Abnormal code = 98302-3) [facility] CenterProtein, random [id number] 23:18:26 Test Item Value Reference Range Interpretation Comments Protein, Urine (test code 21 mg/dL 0-14 H = 2888-6) IDALIA (test code = IDALIA) Pediatrics Physician ID - MARIBEL L Lab Interpretation (test Abnormal code = 94319-1) [facility] CenterProtein, random [id number] 23:18:26 Test Item Value Reference Range Interpretation Comments Protein, Urine (test code 21 mg/dL 0-14 H = 2888-6) IDALIA (test code = IDALIA) Pediatrics Physician ID - PIJOVI L Lab Interpretation (test Abnormal code = 16487-8) [facility] CenterProtein, random [id number] 23:18:26 Test Item Value Reference Range Interpretation Comments Protein, Urine (test code 21 mg/dL 0-14 H = 2888-6) IDALIA (test code = IDALIA) Pediatrics Physician ID - MARIBEL L Lab Interpretation (test Abnormal code = 15368-2) [facility] CenterPROTEIN, RANDOM [id number] 23:18:26 Test Item Value Reference Range Interpretation Comments PROTEIN, URINE (BEAKER) (test code = 21 mg/dL 0-14 H 1569) Pediatrics Physician ID - MARIBEL LCreatinine, random [id number] 23:18:25 Test Item Value Reference Range Interpretation Comments Creatinine, Ur 99.7 mg/dL (test code = 2161-8) IDALIA (test code = Reference Range: No IDALIA) NormalsOperator ID - MARIBEL L [facility] CenterCreatinine, random [id number] 23:18:25 Test Item Value Reference Range Interpretation Comments Creatinine, Ur 99.7 mg/dL (test code = 2161-8) IDALIA (test code = Reference Range: No IDALIA) NormalsOperator ID - PIJOVI L [facility] CenterCreatinine, random [id number] 23:18:25 Test Item Value Reference Range Interpretation Comments Creatinine, Ur 99.7 mg/dL (test code = 2161-8) IDALIA (test code = Reference Range: No IDALIA) NormalsOperator ID - MARIBEL L [facility] CenterCreatinine, random [id number] 23:18:25 Test Item Value Reference Range Interpretation Comments Creatinine, Ur 99.7 mg/dL (test code = 2161-8) IDALIA (test code = Reference Range: No IDALIA) NormalsOperator ID - MARIBEL Inman [facility] CenterCREAT[facility]INE, RANDOM [id number] 23:18:25 Test Item Value Reference Range Interpretation Comments CREATININE URINE (BEAKER) (test 99.7 mg/dL code = 375) Reference Range: No NormalsOperator ID - MARIBEL LPOCT-GLUCOSE [id number] 10:32:21 Test Item Value Reference Range Interpretation Comments POC-GLUCOSE METER 110 mg/dL 70-110 : TESTED A T [facility] 6720 (BEAKER) (test code = DONNA CHARLES [place], 1538) [address]: Pediatrics Physician/Techni dakota ID = [id number] for [facility] HONEYCUTT HEMOGLOBIN [id number] 10:26:45 Test Item Value Reference Range Interpretation [...] 5.7- 6.4% indicates increased risk for diabetes (prediabetes)."Pediatrics Physician ID - ADM HEPATIC FUNCTION [id number] 10:19:31 Test Item Value Reference Range Interpretation [...] Specimen slightly (test code = 347) hemolyzed Pediatrics Physician ID - MARIBEL LBASIC METABOLIC [id number] 10:19:30 Test Item Value Reference Range Interpretation [...] S NOT APPLICABLE FOR DIALYSIS PATIEN TS. Pediatrics Physician ID - PIJOVI LLIPID [id number] 10:19:30 Test Item Value Reference Range Interpretation [...] Borderline 130-159 High 160-189 Very High >=190 Pediatrics Physician ID - MARIBEL [id number] 10:19:29 Test Item Value Reference Range Interpretation Comments MAGNESIUM (BEAKER) 1.5 mg/dL 1.6-2.6 L Specimen slightly (test code = 627) hemolyzed Pediatrics Physician ID - MARIBEL [id number] 10:19:29 Test Item Value Reference Range Interpretation Comments PHOSPHORUS (BEAKER) 3.9 mg/dL 2.3-4.7 Specimen slightly (test code = 604) hemolyzed Pediatrics Physician ID - MARIBEL LCBC W/PLT COUNT & AUTO [id number] 06:19:38 Test Item Value Reference Range Interpretation [...] (BEAKER) (test code = 2801) COMPREHENSIVE METABOLIC [id number] 14:20:15 Test Item Value Reference Range Interpretation [...] S NOT APPLICABLE FOR DIALYSIS PATIEN TS. Pediatrics Physician ID - MARIBEL [id number] 14:20:15 Test Item Value Reference Range Interpretation Comments LIPASE (BEAKER) (test code = 749) 8 U/L 8-78 Pediatrics Physician ID - MARIBEL NEGRONACTIC ACID, [id number] 14:16:12 Test Item Value Reference Range Interpretation Comments LACTATE BLOOD VENOUS 1.09 mmol/L 0.50-2.20 Specime n slightly (2) (BEAKER) (test hemolyzed code = 7392) Pediatrics Physician ID - MARIBEL [id number] 14:09:56 Test Item Value Reference Range Interpretation Comments PARTIAL THROMBOPLASTIN TIME 28.8 seconds 22.5-36.0 (BEAKER) (test code = 760) PROTHROMBIN TIME/[id number] 14:09:14 Test Item Value Reference Range Interpretation Comments PROTIME (BEAKER) 16.6 seconds 11.9-14.2 H (test code = 759) INR (BEAKER) (test 1.37 See_Comment [Automat ed message] code = 370) The system [employer] generated this result transmitted ref erence range: <=5.90. The reference range was not used to int erpret this result as normal/abnormal . RECOMMENDED COUMADIN/WARFARIN INR THERAPY RANGESSTANDARD DOSE: 2.0 - 3.0 Includes: PROPHYLAXIS for venous thrombosis, systemic embolization; TREATMENT for venous thrombosis and/or pulmonary embolus.HIGH RISK: Target INR is 2.5-3.5 for patients with mechanical heart valves.CBC W/PLT COUNT & AUTO [id number] 14:03:40 Test Item Value Reference Range Interpretation [...] PERCENT (BEAKER) (test code = 2801) POCT-GLUCOSE [id number] 13:55:45 Test Item Value Reference Range Interpretation Comments POC-GLUCOSE METER 86 mg/dL 70-110 : TESTED Daphne T [facility] 6720 (BEAKER) (test code = DONNA [place], 1538) [address]: Pediatrics Physician/Techni dakota ID = [id number] for Jose Hodges [employer] culture + smear (non-sputum)2021-11-16 10:41:32 Test Item Value Reference Range Interpretation Comments Result (test code = No acid-fast bacilli 6463-4) isolated in 42 days AFB Smear (test code = No acid fast bacilli 44582-6) [facility]2021-11-16 10:41:32 Test Item Value Reference Range Interpretation Comments Result (test code = No acid-fast bacilli 6463-4) isolated in 42 days AFB Smear (test code = No acid fast bacilli 06090-9) [facility] (non-sputum)2021-11-16 10:41:32 Test Item Value Reference Range Interpretation Comments Result (test code = No acid-fast bacilli 6463-4) isolated in 42 days AFB Smear (test code = No acid fast bacilli 49020-0) [facility]ME[facility] (NON-SPUTUM)2021-11-16 10:41:32 Test Item Value Reference Range Interpretation Comments CULTURE (BEAKER) (test No acid-fast bacilli code = 1095) isolated in 42 days AFB SMEAR (BEAKER) No acid fast bacilli (test code = 994) seen Fungus culture + [id number] 17:16:53 Test Item Value Reference Range Interpretation Comments Result (test code = No fungus isolated in 6463-4) 28 days Fungus Smear (test No fungi seen code = 1406) [facility] + [id number] 17:16:53 Test Item Value Reference Range Interpretation Comments Result (test code = No fungus isolated in 6463-4) 28 days Fungus Smear (test No fungi seen code = 1406) [facility] + [id number] 17:16:53 Test Item Value Reference Range Interpretation Comments Result (test code = No fungus isolated in 6463-4) 28 days Fungus Smear (test No fungi seen code = 1406) [facility] + [id number] 17:16:53 Test Item Value Reference Range Interpretation Comments CULTURE (BEAKER) (test No fungus isolated in code = 1095) 28 days FUNGUS SMEAR (BEAKER) No fungi seen (test code = 1406) - CT ABDOMEN W W/O [id number] 15:32:00 [facility] : 2000 Sex: M FAX: Willard Vaughn Jr [phone] [place]: St: REG Name: VANGIE OVALLE [facility] : 2000 Age/S: 21/M [address] Unit: [id number] Loc: [place] [address] Phys: Willard Crouch Jr, MD Acct: [id number] Dis Date: Status: REG CLI PHONE #: [phone] Exam Date: 10/23/2021 1445 FAX #: [phone]: ABDOMINAL ABSCESSES EXAMS: CPT CODE: [id number] CT ABDOMEN W W/O CONTRAST 65884 EXAMINATION:- CT ABDOMEN W W/O CONTRAST INDICATION: ABDOMINAL ABSCESSES COMPARISON: 09/27/2021 LOCATION: C3 TECHNIQUE: CT abdomen and pelvis was performed without and with IV contrast. Contrasted scans performed inthe venous phase(s) of enhancement. Sagittal and coronal reformatted images were created. This examwas performed according to our departmental dose optimization [...] Signed Report (CONTINUED) FAX: Willard Vaughn Jr [phone] [facility] pus: St: REG -- Name:VANGIE OVALLE [facility] : 2000 Age/S: 21/M [address] Unit: [id number] Loc: [place] [address] Phys: Willard Crouch Jr, MD Acct: [id number] Dis Date: Status: REG CLI PHONE #:[phone] Exam Date: 10/23/2021 0491 FAX #: [phone] Reason: ABDOMINAL ABSCESSES EXAMS: CPT C ODE: [id number] CT ABDOMEN W W/O CONTRAST 81540 (Continued) Imaged lower chest demonstrates mild bibasilar atelectasis. No acute osseous abnormality identified. IMPRESSION: Following interval drain placements, overall quantity of air-fluid collections has partially improved. at 1532 Reported and signed by: Sabas Grey MD CC: Willard Crouch Technologist: DORENE WHITTAKER, RT(R,CT); MATTY CLINTON Trnscrd Dt/Tm: 10/23/2021 (1532) [email or web address] Orig Print D/T: S: 10/23/2021 (1536 PAGE 2 Signed ReportPOCT-GLUCOSE [id number] 12:03:00 Test Item Value Reference Range Interpretation Comments POC-GLUCOSE METER 147 mg/dL 70-110 H : TESTED A T [facility] 6720 (BEAKER) (test code = [facility], 1538) 21595: Pediatrics Physician/Techni dakota ID = [id number] for Roberto Carlos Singh POCT-GLUCOSE [id number] 07:25:56 Test Item Value Reference Range Interpretation Comments POC-GLUCOSE METER 108 mg/dL 70-110 : TESTED A T [facility] 6720 (BEAKER) (test code = [facility], 1538) 09558: Pediatrics Physician/Techni dakota ID = [id number] for Ob Saritha walker [id number] 06:30:28 Test Item Value Reference Range Interpretation Comments PHOSPHORUS (BEAKER) (test code = 3.1 mg/dL 2.3-4.7 604) Pediatrics Physician ID - DBHEPATIC FUNCTION [id number] 06:30:28 Test Item Value Reference Range Interpretation [...] (test code = 9 U/L 6-55 347) Pediatrics Physician ID - DBBASIC METABOLIC [id number] 06:30:27 Test Item Value Reference Range Interpretation [...] S NOT APPLICABLE FOR DIALYSIS PATIEN TS. Pediatrics Physician ID - [id number] 06:30:27 Test Item Value Reference Range Interpretation Comments MAGNESIUM (BEAKER) (test code = 1.6 mg/dL 1.6-2.6 627) Pediatrics Physician ID - DBCBC W/PLT COUNT & AUTO [id number] 06:18:45 Test Item Value Reference Range Interpretation [...] PERCENT (BEAKER) (test code = 2801) POCT-GLUCOSE [id number] 22:04:31 Test Item Value Reference Range Interpretation Comments POC-GLUCOSE METER 148 mg/dL 70-110 H : TESTED A T [facility] 6720 (BEAKER) (test code = DONNA [place], 1538) 55[address]: Pediatrics Physician/Techni dakota ID = [id number] for ME JOANN LYNCH POCT-GLUCOSE [id number] 17:21:06 Test Item Value Reference Range Interpretation Comments POC-GLUCOSE METER 231 mg/dL 70-110 H : TESTED A T [facility] 6720 (BEAKER) (test code = DONNA [place], 1538) 718[address]: Pediatrics Physician/Techni dakota ID = [id number] for ERNST FRANCOIS Anaerobic [id number] 13:55:46 Test Item Value Reference Range Interpretation Comments Result (test code = No anaerobes isolated 6463-4) [facility] [id number] 13:55:46 Test Item Value Reference Range Interpretation Comments CULTURE (BEAKER) (test No anaerobes isolated code = 1095) BASIC METABOLIC [id number] 12:01:25 Test Item Value Reference Range Interpretation [...] S NOT APPLICABLE FOR DIALYSIS PATIEN TS. Pediatrics Physician ID - ALVINA EPATIC FUNCTION [id number] 12:01:25 Test Item Value Reference Range Interpretation [...] (test code = 9 U/L 6-55 347) Pediatrics Physician ID - ALVINA MOperator ID - ALVINA [id number] 12:01:24 Test Item Value Reference Range Interpretation Comments PHOSPHORUS (BEAKER) (test code = 3.8 mg/dL 2.3-4.7 604) Pediatrics Physician ID - ALVINA [id number] 12:01:19 Test Item Value Reference Range Interpretation Comments MAGNESIUM (BEAKER) (test code = 1.5 mg/dL 1.6-2.6 L 627) Pediatrics Physician ID - ALVINA MPOCT-GLUCOSE [id number] 11:54:19 Test Item Value Reference Range Interpretation Comments POC-GLUCOSE METER 110 mg/dL 70-110 : TESTED A T [facility] 6720 (BEAKER) (test code = DONNA [place], 1538) 61160: Pediatrics Physician/Techni dakota ID = [id number] for ERNST FRANCOIS CBC W/PLT COUNT & AUTO [id number] 11:25:49 Test Item Value Reference Range Interpretation [...] PERCENT (BEAKER) (test code = 2801) POCT-GLUCOSE [id number] 09:39:11 Test Item Value Reference Range Interpretation Comments POC-GLUCOSE METER 87 mg/dL 70-110 : TESTED A T [facility] 6720 (BEAKER) (test code = [place]NA [place], 1538) 07984: Pediatrics Physician/Techni dakota ID = [id number] for SARAY CARMINEDELMAR SARS-COV2/RT-PCR ([facility])2021-10-09 04:10:06 Test Item Value Reference Range Interpretation Comments SARS-COV2/RT-PCR (test Negative Not Detected, Negative, code = 0645329) See external report for linked test SARS-COV-2 PERFORMING LAB [facility] SHAUNA (test code = 7463229) Negative result for this test determines that [...] of the Act.Fact Sheet for Healthcare Prov iders:https://www.backstitch.Armor5/sites/default/files/product/documents/Fact_Sheet_HC _Sutfliddv_Lori_LTHX-KoR-2.pdfFact Sheet for Healthcare Patients:https://www.backstitch.Armor5/sites/default/files/product/docume nts/Wucc_Sltbz_Tyzmgeru_Ozyn_ENVH-VdZ-0.pdfPerforming Laboratory:[facility], [place] [address]LQKZ-[id number] METER 2021-10-08 20:41:51 Test Item Value Reference Range Interpretation Comments POC-GLUCOSE METER 102 mg/dL 70-110 : Notified RN/MD: (GENEVA) (test code = TESTED AT [facility] 6720 1538) [facility], [address]: Pediatrics Physician/Techni dakota ID = [id number] for HEATH GRANDE POCT-GLUCOSE [id number] 17:43:36 Test Item Value Reference Range Interpretation Comments POC-GLUCOSE METER 93 mg/dL 70-110 : TESTED A [facility] 6720 (BEAKER) (test code = [facility], 1538) 57965: Pediatrics Physician/Techni dakota ID = [id number] for Mercy Peña POCT-GLUCOSE [id number] 12:09:22 Test Item Value Reference Range Interpretation Comments POC-GLUCOSE METER 93 mg/dL 70-110 : TESTED A T [facility] 6720 (BEAKER) (test code = [facility], 1538) 39212: Pediatrics Physician/Techni dakota ID = [id number] for Tequila holloway, Umeshree POCT-GLUCOSE [id number] 08:51:46 Test Item Value Reference Range Interpretation Comments POC-GLUCOSE METER 95 mg/dL 70-110 : TESTED A [facility] 6720 (BEAKER) (test code = [facility], 1538) 51245: Pediatrics Physician/Techni dakota ID = [id number] for Mercy Peña [id number] 05:23:25 Test Item Value Reference Range Interpretation Comments PHOSPHORUS (BEAKER) (test code = 3.1 mg/dL 2.3-4.7 604) Pediatrics Physician ID - PIAYA LHEPATIC FUNCTION [id number] 05:23:25 Test Item Value Reference Range Interpretation [...] (test code = 11 U/L 6-55 347) Pediatrics Physician ID Cherelle LÓPEZ LBASIC METABOLIC [id number] 05:23:24 Test Item Value Reference Range Interpretation [...] S NOT APPLICABLE FOR DIALYSIS PATIEN TS. Pediatrics Physician ID - MARIBEL [id number] 05:23:24 Test Item Value Reference Range Interpretation Comments MAGNESIUM (BEAKER) (test code = 1.4 mg/dL 1.6-2.6 L 627) Pediatrics Physician ID Cherelle LÓPEZ LCBC W/PLT COUNT & AUTO [id number] 04:49:36 Test Item Value Reference Range Interpretation [...] PERCENT (BEAKER) (test code = 2801) POCT-GLUCOSE [id number] 21:40:30 Test Item Value Reference Range Interpretation Comments POC-GLUCOSE METER 135 mg/dL 70-110 H : TESTED A T [facility] 6720 (BEAKER) (test code = DONNA [place], 1538) 63949: Pediatrics Physician/Techni dakota ID = [id number] for MARTINE VASQUEZ POCT-GLUCOSE [id number] 16:34:48 Test Item Value Reference Range Interpretation Comments POC-GLUCOSE METER 177 mg/dL 70-110 H : TESTED A T [facility] 6720 (BEAKER) (test code = [facility], 1538) 69768: Pediatrics Physician/Techni dakota ID = [id number] for QUEEN HONEYCUTT POCT-GLUCOSE [id number] 11:09:04 Test Item Value Reference Range Interpretation Comments POC-GLUCOSE METER 156 mg/dL 70-110 H : TESTED A T [facility] 6720 (BEAKER) (test code = [facility], 1538) 40080: Pediatrics Physician/Techni dakota ID = [id number] for FAY SPARKS CELESTINE POCT-GLUCOSE [id number] 07:50:39 Test Item Value Reference Range Interpretation Comments POC-GLUCOSE METER 69 mg/dL 70-110 L : TESTED A T [facility] 6720 (BEAKER) (test code = [facility], 1538) 06722: Pediatrics Physician/Techni dakota ID = [id number] for QUEEN JACOBSEN HEPATIC FUNCTION [id number] 04:46:43 Test Item Value Reference Range Interpretation [...] (test code = 11 U/L 6-55 347) Pediatrics Physician ID - ALVINA [id number] 04:46:42 Test Item Value Reference Range Interpretation Comments MAGNESIUM (BEAKER) (test code = 1.4 mg/dL 1.6-2.6 L 627) Pediatrics Physician ID - ALVINA [id number] 04:46:42 Test Item Value Reference Range Interpretation Comments PHOSPHORUS (BEAKER) (test code = 2.6 mg/dL 2.3-4.7 604) Pediatrics Physician ID - ALVINA MBASIC METABOLIC [id number] 04:46:41 Test Item Value Reference Range Interpretation [...] S NOT APPLICABLE FOR DIALYSIS PATIEN TS. Pediatrics Physician ID - ALVINA MPOCT-GLUCOSE [id number] 21:32:38 Test Item Value Reference Range Interpretation Comments POC-GLUCOSE METER 175 mg/dL 70-110 H : TESTED A T [facility] 6720 (BEAKER) (test code = [facility], 1538) 25522: Pediatrics Physician/Techni dakota ID = [id number] for NG O, BRIGIDA POCT-GLUCOSE [id number] 16:48:18 Test Item Value Reference Range Interpretation Comments POC-GLUCOSE METER 217 mg/dL 70-110 H : TESTED A T [facility] 6720 (BEAKER) (test code [facility], = 1538) 88155: Pediatrics Physician/Techni dakota ID = [id number] for Bhag jewel, Rajashree POCT-GLUCOSE [id number] 12:45:58 Test Item Value Reference Range Interpretation Comments POC-GLUCOSE METER 158 mg/dL 70-110 H : TESTED A T [facility] 6720 (BEAKER) (test code [facility], = 1538) 43097: Pediatrics Physician/Techni dakota ID = [id number] for Bhag jewel, Rajashree HEPATIC FUNCTION [id number] 06:44:11 Test Item Value Reference Range Interpretation [...] (test code = 11 U/L 6-55 347) Pediatrics Physician ID - ALVINA [id number] 06:44:10 Test Item Value Reference Range Interpretation Comments PHOSPHORUS (BEAKER) (test code = 2.4 mg/dL 2.3-4.7 604) Pediatrics Physician ID - ALVINA MBASIC METABOLIC [id number] 06:44:09 Test Item Value Reference Range Interpretation [...] S NOT APPLICABLE FOR DIALYSIS PATIEN TS. Pediatrics Physician ID - ALVINA [id number] 06:44:09 Test Item Value Reference Range Interpretation Comments MAGNESIUM (BEAKER) (test code = 1.5 mg/dL 1.6-2.6 L 627) Pediatrics Physician BEATRIZ TINSLEY MCBC W/PLT COUNT & AUTO [id number] 06:09:40 Test Item Value Reference Range Interpretation [...] PERCENT (BEAKER) (test code = 2801) BLOOD [id number] 23:00:53 Test Item Value Reference Range Interpretation Comments CULTURE (BEAKER) (test No growth in 5 days code = 1095) The specimen volume collected for this blood culture was below the optimum (10 mL per bottle or 20 mL total). Use of lower volumes may adversely affect recovery and/or detection times of some organisms.BLOOD [id number] 23:00:53 Test Item Value Reference Range Interpretation Comments CULTURE (BEAKER) (test No growth in 5 days code = 1095) POCT-GLUCOSE [id number] 21:19:41 Test Item Value Reference Range Interpretation Comments POC-GLUCOSE METER 154 mg/dL 70-110 H : TESTED A T [facility] 6720 (BEAKER) (test code = [facility], 1538) 51326: Pediatrics Physician/Techni dakota ID = [id number] for Ok jennie (contract), Chi nenye POCT-GLUCOSE [id number] 16:32:34 Test Item Value Reference Range Interpretation Comments POC-GLUCOSE METER 168 mg/dL 70-110 H : TESTED A T [facility] 6720 (BEAKER) (test code = [facility], 1538) 29436: Pediatrics Physician/Techni dakota ID = [id number] for WI LLIS, ERNST POCT-GLUCOSE [id number] 11:36:04 Test Item Value Reference Range Interpretation Comments POC-GLUCOSE METER 120 mg/dL 70-110 H : TESTED A T [facility] 6720 (BEAKER) (test code = [facility], 1538) 12018: Pediatrics Physician/Techni dakota ID = [id number] for [place] LLIS, ERNST SARS-COV2/RT-PCR ([facility])2021-10-05 10:25:30 Test Item Value Reference Range Interpretation Comments SARS-COV2/RT-PCR (test Negative Not Detected, Negative, code = 0282010) See external report for linked test SARS-COV-2 PERFORMING LAB [facility] SHAUNA (test code = 6907025) Negative result for this test determines that [...] of the Act.Fact Sheet for Healthcare Prov iders:https://www.Get10/sites/default/files/product/documents/Fact_Sheet_HC _Aqtccchjb_Tyub_SFIH-NdH-1.pdfFact Sheet for Healthcare Patients:https://www.backstitch.Armor5/sites/default/files/product/docume nts/Uoyr_Fmeak_Jhodvxxb_Mtoh_DJZI-PsP-6.pdfPerforming Laboratory:[facility] Te[facility]edaE[facility], [place] [address]NPZN-MRXHGCB METER 2021-10-05 08:03:30 Test Item Value Reference Range Interpretation Comments POC-GLUCOSE METER 109 mg/dL 70-110 : TESTED A T [facility] 6720 (BEAKER) (test code = [place], 1538) [address]: Pediatrics Physician/Techni dakota ID = [id number] for ERNST FRANCOIS HEPATIC FUNCTION [id number] 07:35:20 Test Item Value Reference Range Interpretation [...] (test code = 12 U/L 6-55 347) Pediatrics Physician ID - MARIBEL LOperator ID - [id number] 06:55:48 Test Item Value Reference Range Interpretation Comments MAGNESIUM (BEAKER) (test code = 1.6 mg/dL 1.6-2.6 627) Pediatrics Physician ID - MARIBEL [id number] 06:55:48 Test Item Value Reference Range Interpretation Comments PHOSPHORUS (BEAKER) (test code = 2.1 mg/dL 2.3-4.7 L 604) Pediatrics Physician ID - MARIBEL LBASIC METABOLIC [id number] 06:55:47 Test Item Value Reference Range Interpretation [...] S NOT APPLICABLE FOR DIALYSIS PATIEN TS. Pediatrics Physician ID - PIAYA LCBC W/PLT COUNT & AUTO [id number] 06:21:14 Test Item Value Reference Range Interpretation [...] PERCENT (BEAKER) (test code = 2801) POCT-GLUCOSE [id number] 21:22:59 Test Item Value Reference Range Interpretation Comments POC-GLUCOSE METER 192 mg/dL 70-110 H : TESTED A T [facility] 6720 (BEAKER) (test code = [facility], 153) 43182: Pediatrics Physician/Techni dakota ID = [id number] for Arsenio schneider (contract) Palak valenzuela POCT-GLUCOSE [id number] 17:34:11 Test Item Value Reference Range Interpretation Comments POC-GLUCOSE METER 201 mg/dL 70-110 H : TESTED A T [facility] 6720 (BEAKER) (test code = [facility], 153) 78171: Pediatrics Physician/Techni dakota ID = [id number] for Keely House POCT-GLUCOSE [id number] 12:07:46 Test Item Value Reference Range Interpretation Comments POC-GLUCOSE METER 103 mg/dL 70-110 : TESTED A T [facility] 6720 (BEAKER) (test code = [facility], 153) 47867: Pediatrics Physician/Techni dakota ID = [id number] for FAY MARTINEZ ERNST SURGICALLY OBTAINED CULTURE + GRAM [id number] 09:10:42 Test Item Value Reference Range Interpretation [...] gram negative (BEAKER) (test code = rods 459713) HEPATIC FUNCTION [id number] 07:01:07 Test Item Value Reference Range Interpretation [...] (test code = 12 U/L 6-55 347) Pediatrics Physician ID - BISI [id number] 07:01:06 Test Item Value Reference Range Interpretation Comments PHOSPHORUS (BEAKER) (test code = 2.8 mg/dL 2.3-4.7 604) Pediatrics Physician ID - BISI GBASIC METABOLIC [id number] 07:01:05 Test Item Value Reference Range Interpretation [...] S NOT APPLICABLE FOR DIALYSIS PATIEN TS. Pediatrics Physician ID - BISI [id number] 07:01:05 Test Item Value Reference Range Interpretation Comments MAGNESIUM (BEAKER) (test code = 1.6 mg/dL 1.6-2.6 627) Pediatrics Physician ID - BISI GCBC W/PLT COUNT & AUTO [id number] 06:35:47 Test Item Value Reference Range Interpretation [...] PERCENT (BEAKER) (test code = 2801) POCT-GLUCOSE [id number] 16:48:07 Test Item Value Reference Range Interpretation Comments POC-GLUCOSE METER 113 mg/dL 70-110 H : TESTED A T [facility] 6720 (BEAKER) (test code = [facility], 153) 83430: Pediatrics Physician/Techni dakota ID = [id number] for MASON FALCON POCT-GLUCOSE [id number] 11:46:29 Test Item Value Reference Range Interpretation Comments POC-GLUCOSE METER 116 mg/dL 70-110 H : TESTED A T [facility] 6720 (BEAKER) (test code = [facility], 153) 01291: Pediatrics Physician/Techni dakota ID = [id number] for MASON FALCON ANTI-DNA [id number] 11:16:17 Test Item Value Reference Range Interpretation Comments ANTI-DNA TITER (BEAKER) (test code = :80 1553) DOUBLE-STRANDED DNA (DSDNA) [id number] 11:16:05 Test Item Value Reference Range Interpretation Comments ANTI-DNA DS (BEAKER) (test code = Positive Negative 1055) ANAEROBIC [id number] 08:30:44 Test Item Value Reference Range Interpretation Comments CULTURE (BEAKER) (test No anaerobes isolated code = 1095) HEPATIC FUNCTION [id number] 05:47:57 Test Item Value Reference Range Interpretation [...] Specimen slightly (test code = 347) hemolyzed Pediatrics Physician ID - PIAYA LBASIC METABOLIC [id number] 05:47:56 Test Item Value Reference Range Interpretation [...] S NOT APPLICABLE FOR DIALYSIS PATIEN TS. Pediatrics Physician ID - MARIBEL [id number] 05:47:55 Test Item Value Reference Range Interpretation Comments PHOSPHORUS (BEAKER) 4.6 mg/dL 2.3-4.7 Specimen slightly (test code = 604) hemolyzed Pediatrics Physician ID - MARIBEL [id number] 05:47:54 Test Item Value Reference Range Interpretation Comments MAGNESIUM (BEAKER) 1.9 mg/dL 1.6-2.6 Specimen slightly (test code = 627) hemolyzed Pediatrics Physician ID - MARIBEL LCBC (HEMOGRAM ONLY)2021-10-03 05:23:39 [...] 0-0 (BEAKER) (test code = 413) POCT-GLUCOSE [id number] 05:08:33 Test Item Value Reference Range Interpretation Comments POC-GLUCOSE METER 102 mg/dL 70-110 : Notified RN/MD: (BEAKER) (test code = TESTED AT [facility] 7487 6446) [place], [address]: Pediatrics Physician/Techni dakota ID = [id number] for Aaron Paul BASIC METABOLIC [id number] 21:11:22 Test Item Value Reference Range Interpretation [...] S NOT APPLICABLE FOR DIALYSIS PATIEN TS. Pediatrics Physician ID - [id number] 21:10:34 Test Item Value Reference Range Interpretation Comments PHOSPHORUS (BEAKER) (test code = 4.2 mg/dL 2.3-4.7 604) Pediatrics Physician ID - [id number] 21:10:33 Test Item Value Reference Range Interpretation Comments MAGNESIUM (BEAKER) (test code = 1.4 mg/dL 1.6-2.6 L 627) Pediatrics Physician ID - ADMINCBC (HEMOGRAM ONLY)2021-10-02 20:57:35 Test [...] 0-0 (BEAKER) (test code = 413) POCT-GLUCOSE [id number] 19:48:59 Test Item Value Reference Range Interpretation Comments POC-GLUCOSE METER 104 mg/dL 70-110 : TESTED A T [facility] 6720 (BEAKER) (test code = [place] [facility], 1538) 94137: Pediatrics Physician/Techni dakota ID = [id number] for Marcio Guerra HGB/HCT (H&H)-Stat [id number] 18:09:55 Test Item Value Reference Range Interpretation Comments Hemoglobin (test code = 10.2 See_Comment L [Au tomated message] 786-4) The system [employer] generated this result transmitted ref erence range: 13.0 - 1 6.8 GM/DL. The refe rence range was not u sed to interpret this result as normal/abnor mal. Hematocrit (test code = 30.0 % 40.0-50.0 L 4544-3) Lab Interpretation (test Abnormal code = 06086-7) [facility] [id number] 18:09:55 Test Item Value Reference Range Interpretation Comments Hemoglobin (test code = 10.2 See_Comment L [Au tomated message] 786-4) The system [employer] generated this result transmitted ref erence range: 13.0 - 1 6.8 GM/DL. The refe rence range was not u sed to interpret this result as normal/abnor mal. Hematocrit (test code = 30.0 % 40.0-50.0 L 4544-3) Lab Interpretation (test Abnormal code = 31007-2) [facility] [id number] 18:09:55 Test Item Value Reference Range Interpretation Comments Hemoglobin (test code = 10.2 See_Comment L [Au tomated message] 786-4) The system [employer] generated this result transmitted ref erence range: 13.0 - 1 6.8 GM/DL. The refe rence range was not u sed to interpret this result as normal/abnor mal. Hematocrit (test code = 30.0 % 40.0-50.0 L 4544-3) Lab Interpretation (test Abnormal code = 23887-7) [facility] [id number] 18:09:55 Test Item Value Reference Range Interpretation Comments Hemoglobin (test code = 10.2 See_Comment L [Au tomated message] 786-4) The system [employer] generated this result transmitted ref erence range: 13.0 - 1 6.8 GM/DL. The refe rence range was not u sed to interpret this result as normal/abnor mal. Hematocrit (test code = 30.0 % 40.0-50.0 L 4544-3) Lab Interpretation (test Abnormal code = 90922-2) [facility] [id number] 18:09:55 Test Item Value Reference Range Interpretation Comments Hemoglobin (test code = 10.2 See_Comment L [Au tomated message] 786-4) The system [employer] generated this result transmitted ref erence range: 13.0 - 1 6.8 GM/DL. The refe rence range was not u sed to interpret this result as normal/abnor mal. Hematocrit (test code = 30.0 % 40.0-50.0 L 4544-3) Lab Interpretation (test Abnormal code = 43158-3) [facility] [id number] 18:09:55 Test Item Value Reference Range Interpretation Comments Hemoglobin (test code = 10.2 See_Comment L [Au tomated message] 786-4) The system [employer] generated this result transmitted ref erence range: 13.0 - 1 6.8 GM/DL. The refe rence range was not u sed to interpret this result as normal/abnor mal. Hematocrit (test code = 30.0 % 40.0-50.0 L 4544-3) Lab Interpretation (test Abnormal code = 57783-2) [facility] [id number] 18:09:55 Test Item Value Reference Range Interpretation Comments Hemoglobin (test code = 10.2 See_Comment L [Au tomated message] 786-4) The system [employer] generated this result transmitted ref erence range: 13.0 - 1 6.8 GM/DL. The refe rence range was not u sed to interpret this result as normal/abnor mal. Hematocrit (test code = 30.0 % 40.0-50.0 L 4544-3) Lab Interpretation (test Abnormal code = 17306-7) [facility] [id number] 18:09:55 Test Item Value Reference Range Interpretation Comments Hemoglobin (test code = 10.2 See_Comment L [Au tomated message] 786-4) The system [employer] generated this result transmitted ref erence range: 13.0 - 1 6.8 GM/DL. The refe rence range was not u sed to interpret this result as normal/abnor mal. Hematocrit (test code = 30.0 % 40.0-50.0 L 4544-3) Lab Interpretation (test Abnormal code = 50727-2) [facility] [id number] 18:09:55 Test Item Value Reference Range Interpretation Comments Hemoglobin (test code = 10.2 See_Comment L [Au tomated message] 786-4) The system [employer] generated this result transmitted ref erence range: 13.0 - 1 6.8 GM/DL. The refe rence range was not u sed to interpret this result as normal/abnor mal. Hematocrit (test code = 30.0 % 40.0-50.0 L 4544-3) Lab Interpretation (test Abnormal code = 91507-8) [facility] [id number] 18:09:55 Test Item Value Reference Range Interpretation Comments Hemoglobin (test code = 10.2 See_Comment L [Au tomated message] 786-4) The system [employer] generated this result transmitted ref erence range: 13.0 - 1 6.8 GM/DL. The refe rence range was not u sed to interpret this result as normal/abnor mal. Hematocrit (test code = 30.0 % 40.0-50.0 L 4544-3) Lab Interpretation (test Abnormal code = 31430-9) [facility] [id number] 18:09:55 Test Item Value Reference Range Interpretation Comments Hemoglobin (test code = 10.2 See_Comment L [Au tomated message] 786-4) The system [employer] generated this result transmitted ref erence range: 13.0 - 1 6.8 GM/DL. The refe rence range was not u sed to interpret this result as normal/abnor mal. Hematocrit (test code = 30.0 % 40.0-50.0 L 4544-3) Lab Interpretation (test Abnormal code = 75489-7) [facility] - [facility] [id number] 18:09:55 Test Item Value Reference Range Interpretation Comments HEMOGLOBIN (BEAKER) (test code = 10.2 GM/DL 13.0-16.8 L 410) HEMATOCRIT (BEAKER) (test code = 30.0 % 40.0-50.0 L 411) Sodium Na-Stat [id number] 18:09:54 Test Item Value Reference Range Interpretation Comments Sodium (test code = 2951-2) 130 meq/L 136-145 L Lab Interpretation (test code = Abnormal 04218-4) [facility] [id number] 18:09:54 Test Item Value Reference Range Interpretation Comments Sodium (test code = 2951-2) 130 meq/L 136-145 L Lab Interpretation (test code = Abnormal 16153-0) [facility] [id number] 18:09:54 Test Item Value Reference Range Interpretation Comments Sodium (test code = 2951-2) 130 meq/L 136-145 L Lab Interpretation (test code = Abnormal 61358-6) [facility] [id number] 18:09:54 Test Item Value Reference Range Interpretation Comments Sodium (test code = 2951-2) 130 meq/L 136-145 L Lab Interpretation (test code = Abnormal 84657-5) [facility] Na-Stat [id number] 18:09:54 Test Item Value Reference Range Interpretation Comments Sodium (test code = 2951-2) 130 meq/L 136-145 L Lab Interpretation (test code = Abnormal 13798-4) [facility] Na-Stat [id number] 18:09:54 Test Item Value Reference Range Interpretation Comments Sodium (test code = 2951-2) 130 meq/L 136-145 L Lab Interpretation (test code = Abnormal 31653-3) [facility] [id number] 18:09:54 Test Item Value Reference Range Interpretation Comments Sodium (test code = 2951-2) 130 meq/L 136-145 L Lab Interpretation (test code = Abnormal 61679-0) [facility] [id number] 18:09:54 Test Item Value Reference Range Interpretation Comments Sodium (test code = 2951-2) 130 meq/L 136-145 L Lab Interpretation (test code = Abnormal 44779-3) [facility] [id number] 18:09:54 Test Item Value Reference Range Interpretation Comments Sodium (test code = 2951-2) 130 meq/L 136-145 L Lab Interpretation (test code = Abnormal 75180-0) [facility] Na-Stat [id number] 18:09:54 Test Item Value Reference Range Interpretation Comments Sodium (test code = 2951-2) 130 meq/L 136-145 L Lab Interpretation (test code = Abnormal 87708-0) [facility] [id number] 18:09:54 Test Item Value Reference Range Interpretation Comments Sodium (test code = 2951-2) 130 meq/L 136-145 L Lab Interpretation (test code = Abnormal 21785-9) [facility] [id number] 18:09:54 Test Item Value Reference Range Interpretation Comments SODIUM (BEAKER) (test code = 381) 130 meq/L 136-145 L Blood gas, [id number] 18:09:53 Test Item Value Reference Range Interpretation Comments pH, Arterial (test code 7.50 7.35-7.45 H = 2744-1) pCO2, Arterial (test 35 See_Comment [Autom ated message] code = 2018-12) The system [employer] generated this result transmit hernandez reference range : 35 - 45 mm Hg. The reference range was not used to interpret this result as normal/abnormal . pO2, Arterial (test 139 See_Comment H [Automa hernandez message] code = 2703-7) The system [employer] generated this result transmit hernandez reference range [...] 8310-5) Lab Interpretation Abnormal (test code = 06554-4) [facility], [id number] 18:09:53 Test Item Value Reference Range Interpretation Comments pH, Arterial (test code 7.50 7.35-7.45 H = 2744-1) pCO2, Arterial (test 35 See_Comment [Autom ated message] code = 2018-12) The system [employer] generated this result transmit hernandez reference range : 35 - 45 mm Hg. The reference range was not used to interpret this result as normal/abnormal . pO2, Arterial (test 139 See_Comment H [Automa hernandez message] code = 2703-7) The system [facility] generated this result transmit hernandez reference range [...] 8310-5) Lab Interpretation Abnormal (test code = 92527-9) [facility], [id number] 18:09:53 Test Item Value Reference Range Interpretation Comments pH, Arterial (test code 7.50 7.35-7.45 H = 2744-1) pCO2, Arterial (test 35 See_Comment [Autom ated message] code = 2018-12) The system [facility] generated this result transmit hernandez reference range : 35 - 45 mm Hg. The reference range was not used to interpret this result as normal/abnormal . pO2, Arterial (test 139 See_Comment H [Automa hernandez message] code = 2703-7) The system [facility] generated this result transmit hernandez reference range [...] 8310-5) Lab Interpretation Abnormal (test code = 72247-9) [facility], [id number] 18:09:53 Test Item Value Reference Range Interpretation Comments pH, Arterial (test code 7.50 7.35-7.45 H = 2744-1) pCO2, Arterial (test 35 See_Comment [Autom ated message] code = 2019-) The system [facility] generated this result transmit hernandez reference range : 35 - 45 mm Hg. The reference range was not used to interpret this result as normal/abnormal . pO2, Arterial (test 139 See_Comment H [Automa hernandez message] code = 2703-7) The system [employer] generated this result transmit hernandez reference range [...] 8310-5) Lab Interpretation Abnormal (test code = 73051-3) [facility], [id number] 18:09:53 Test Item Value Reference Range Interpretation Comments pH, Arterial (test code 7.50 7.35-7.45 H = 2744-1) pCO2, Arterial (test 35 See_Comment [Autom ated message] code = 2018-) The system [employer] generated this result transmit hernandez reference range : 35 - 45 mm Hg. The reference range was not used to interpret this result as normal/abnormal . pO2, Arterial (test 139 See_Comment H [Automa hernandez message] code = 2703-7) The system [employer] generated this result transmit hernandez reference range [...] 8310-5) Lab Interpretation Abnormal (test code = 27454-4) [facility], [id number] 18:09:53 Test Item Value Reference Range Interpretation Comments pH, Arterial (test code 7.50 7.35-7.45 H = 2744-1) pCO2, Arterial (test 35 See_Comment [Autom ated message] code = 2018-) The system [facility] generated this result transmit hernandez reference range : 35 - 45 mm Hg. The reference range was not used to interpret this result as normal/abnormal . pO2, Arterial (test 139 See_Comment H [Automa hernandez message] code = 2703-7) The system [employer] generated this result transmit hernandez reference range [...] 8310-5) Lab Interpretation Abnormal (test code = 72497-2) [facility], [id number] 18:09:53 Test Item Value Reference Range Interpretation Comments pH, Arterial (test code 7.50 7.35-7.45 H = 2744-1) pCO2, Arterial (test 35 See_Comment [Autom ated message] code = 2018-12) The system [employer] generated this result transmit hernandez reference range : 35 - 45 mm Hg. The reference range was not used to interpret this result as normal/abnormal . pO2, Arterial (test 139 See_Comment H [Automa hernandez message] code = 2703-7) The system [employer] generated this result transmit hernandez reference range [...] 8310-5) Lab Interpretation Abnormal (test code = 49609-0) [facility], [id number] 18:09:53 Test Item Value Reference Range Interpretation Comments pH, Arterial (test code 7.50 7.35-7.45 H = 2744-1) pCO2, Arterial (test 35 See_Comment [Autom ated message] code = 2018-12) The system [facility] generated this result transmit hernandez reference range : 35 - 45 mm Hg. The reference range was not used to interpret this result as normal/abnormal . pO2, Arterial (test 139 See_Comment H [Automa hernandez message] code = 2703-7) The system [employer] generated this result transmit hernandez reference range [...] 8310-5) Lab Interpretation Abnormal (test code = 44218-1) [facility], [id number] 18:09:53 Test Item Value Reference Range Interpretation Comments pH, Arterial (test code 7.50 7.35-7.45 H = 2744-1) pCO2, Arterial (test 35 See_Comment [Autom ated message] code = 2019-8) The system [facility] generated this result transmit hernandez reference range : 35 - 45 mm Hg. The reference range was not used to interpret this result as normal/abnormal . pO2, Arterial (test 139 See_Comment H [Automa hernandez message] code = 2703-7) The system [facility] generated this result transmit hernandez reference range [...] 8310-5) Lab Interpretation Abnormal (test code = 23789-3) [facility], [id number] 18:09:53 Test Item Value Reference Range Interpretation Comments pH, Arterial (test code 7.50 7.35-7.45 H = 2744-1) pCO2, Arterial (test 35 See_Comment [Autom ated message] code = 2019-8) The system [employer] generated this result transmit hernandez reference range : 35 - 45 mm Hg. The reference range was not used to interpret this result as normal/abnormal . pO2, Arterial (test 139 See_Comment H [Automa hernandez message] code = 2703-7) The system [employer] generated this result transmit hernandez reference range [...] 8310-5) Lab Interpretation Abnormal (test code = 41281-6) [facility]Blood [facility], [id number] 18:09:53 Test Item Value Reference Range Interpretation Comments pH, Arterial (test code 7.50 7.35-7.45 H = 2744-1) pCO2, Arterial (test 35 See_Comment [Autom ated message] code = 2019-) The system [employer] generated this result transmit hernandez reference range : 35 - 45 mm Hg. The reference range was not used to interpret this result as normal/abnormal . pO2, Arterial (test 139 See_Comment H [Automa hernandez message] code = 2703-7) The system [employer] generated this result transmit hernandez reference range [...] 8310-5) Lab Interpretation Abnormal (test code = 95309-4) [facility] CenterCALCIUM, [id number] 18:09:53 Test Item Value Reference Range Interpretation Comments CALCIUM IONIZED (BEAKER) (test 1.07 mmol/L 1.12-1.27 L code = 698) PH, BLOOD (BEAKER) (test code = 7.50 1810) BLOOD GAS, [id number] 18:09:53 Test Item Value Reference Range Interpretation [...] (BEAKER) (test 37.0 code = 1818) Glucose-Stat [id number] 18:08:53 Test Item Value Reference Range Interpretation Comments Glucose (test code = 2345-7) 101 mg/dL 70-110 Lab Interpretation (test code = Normal 89811-2) [facility] CenterPotassium-Stat [id number] 18:08:53 Test Item Value Reference Range Interpretation Comments Potassium (test code = 2823-3) 4.2 meq/L 3.6-5.5 Lab Interpretation (test code = Normal 86850-6) [facility] CenterGlucose-Stat [id number] 18:08:53 Test Item Value Reference Range Interpretation Comments Glucose (test code = 2345-7) 101 mg/dL 70-110 Lab Interpretation (test code = Normal 43985-9) [facility] CenterPotassium-Stat [id number] 18:08:53 Test Item Value Reference Range Interpretation Comments Potassium (test code = 2823-3) 4.2 meq/L 3.6-5.5 Lab Interpretation (test code = Normal 97932-4) [facility] CenterGlucose-Stat [id number] 18:08:53 Test Item Value Reference Range Interpretation Comments Glucose (test code = 2345-7) 101 mg/dL 70-110 Lab Interpretation (test code = Normal 13642-4) [facility] CenterPotassium-Stat [id number] 18:08:53 Test Item Value Reference Range Interpretation Comments Potassium (test code = 2823-3) 4.2 meq/L 3.6-5.5 Lab Interpretation (test code = Normal 50597-7) [facility] CenterGlucose-Stat [id number] 18:08:53 Test Item Value Reference Range Interpretation Comments Glucose (test code = 2345-7) 101 mg/dL 70-110 Lab Interpretation (test code = Normal 71007-9) [facility] CenterPotassium-Stat [id number] 18:08:53 Test Item Value Reference Range Interpretation Comments Potassium (test code = 2823-3) 4.2 meq/L 3.6-5.5 Lab Interpretation (test code = Normal 80941-3) [facility] CenterGlucose-Stat [id number] 18:08:53 Test Item Value Reference Range Interpretation Comments Glucose (test code = 2345-7) 101 mg/dL 70-110 Lab Interpretation (test code = Normal 82909-2) [facility] CenterPotassium-Stat [id number] 18:08:53 Test Item Value Reference Range Interpretation Comments Potassium (test code = 2823-3) 4.2 meq/L 3.6-5.5 Lab Interpretation (test code = Normal 85109-6) [facility] CenterGlucose-Stat [id number] 18:08:53 Test Item Value Reference Range Interpretation Comments Glucose (test code = 2345-7) 101 mg/dL 70-110 Lab Interpretation (test code = Normal 33340-6) [facility] CenterPotassium-Stat [id number] 18:08:53 Test Item Value Reference Range Interpretation Comments Potassium (test code = 2823-3) 4.2 meq/L 3.6-5.5 Lab Interpretation (test code = Normal 66364-7) [facility] CenterGlucose-Stat [id number] 18:08:53 Test Item Value Reference Range Interpretation Comments Glucose (test code = 2345-7) 101 mg/dL 70-110 Lab Interpretation (test code = Normal 96041-8) [facility] CenterPotassium-Stat [id number] 18:08:53 Test Item Value Reference Range Interpretation Comments Potassium (test code = 2823-3) 4.2 meq/L 3.6-5.5 Lab Interpretation (test code = Normal 73035-6) [facility] CenterGlucose-Stat [id number] 18:08:53 Test Item Value Reference Range Interpretation Comments Glucose (test code = 2345-7) 101 mg/dL 70-110 Lab Interpretation (test code = Normal 56081-7) [facility] CenterPotassium-Stat [id number] 18:08:53 Test Item Value Reference Range Interpretation Comments Potassium (test code = 2823-3) 4.2 meq/L 3.6-5.5 Lab Interpretation (test code = Normal 44025-6) [facility] CenterGlucose-Stat [id number] 18:08:53 Test Item Value Reference Range Interpretation Comments Glucose (test code = 2345-7) 101 mg/dL 70-110 Lab Interpretation (test code = Normal 00999-5) [facility] CenterPotassium-Stat [id number] 18:08:53 Test Item Value Reference Range Interpretation Comments Potassium (test code = 2823-3) 4.2 meq/L 3.6-5.5 Lab Interpretation (test code = Normal 49447-2) [facility] CenterGlucose-Stat [id number] 18:08:53 Test Item Value Reference Range Interpretation Comments Glucose (test code = 2345-7) 101 mg/dL 70-110 Lab Interpretation (test code = Normal 76012-9) [facility] CenterPotassium-Stat [id number] 18:08:53 Test Item Value Reference Range Interpretation Comments Potassium (test code = 2823-3) 4.2 meq/L 3.6-5.5 Lab Interpretation (test code = Normal 87979-8) [facility] CenterGlucose-Stat [id number] 18:08:53 Test Item Value Reference Range Interpretation Comments Glucose (test code = 2345-7) 101 mg/dL 70-110 Lab Interpretation (test code = Normal 99370-4) [facility] CenterPotassium-Stat [id number] 18:08:53 Test Item Value Reference Range Interpretation Comments Potassium (test code = 2823-3) 4.2 meq/L 3.6-5.5 Lab Interpretation (test code = Normal 54312-2) [facility] CenterGLUCOSE-STAT [id number] 18:08:53 Test Item Value Reference Range Interpretation Comments GLUCOSE RANDOM (BEAKER) (test code 101 mg/dL 70-110 = 652) POTASSIUM-STAT [id number] 18:08:53 Test Item Value Reference Range Interpretation Comments POTASSIUM (BEAKER) (test code = 4.2 meq/L 3.6-5.5 379) POCT-GLUCOSE [id number] 16:03:15 Test Item Value Reference Range Interpretation Comments POC-GLUCOSE METER 128 mg/dL 70-110 H : TESTED A T [facility] 6720 (BEAKER) (test code = [place], 1538) [address]: Pediatrics Physician/Techni dakota ID = [id number] for Keely House VANCOMYCIN LEVEL, [id number] 14:06:37 Test Item Value Reference Range Interpretation Comments VANCOMYCIN TROUGH (BEAKER) (test 10.9 ug/mL 10.0-20.0 code = 522) Pediatrics Physician ID - DBSARS-COV2/RT-PCR ([facility])2021-10-02 12:40:57 Test Item Value Reference Range Interpretation Comments SARS-COV2/RT-PCR (test Negative Not Detected, Negative, code = 1876320) See external report for linked test SARS-COV-2 PERFORMING LAB [facility] SHAUNA (test code = 7294851) Negative result for this test determines that [...] of the Act.Fact Sheet for Healthcare Prov iders:https://www.Get[employer]/sites/default/files/product/documents/Fact_Sheet_HC _Bxdgnnpsx_Xpyw_NNWA-CwL-9.pdfFact Sheet for Healthcare Patients:https://www.[employer]/sites/default/files/product/docume nts/Kcwz_Sdsgy_Garwzdnw_Cqky_LGYK-VsO-1.pdfPerforming Laboratory:[facility], [place] [address]IA, DRAINAGE, ABDOMINAL 2021-10-02 11:36:00Reason for exam:->necrotizing pancreatitis wiht fluid collections in abdomenReason for exam:->pls send cultures (aerobic, anaerobic) and amylase from fluid (all are ordered) [facility] : 2000 Sex: MFINAL REPORT PROCEDURE: Drainage catheter placement Procedural PersonnelAttending physician(s): Marvin Jordan physician(s): NoneResident physician(s): NoneAdvanced practice provider(s): None Pre-procedure diagnosis: Necrotizing pancreatitisPost-procedure diagnosis: SameIndication:Leukocytosis with fluid collectionAdditional clinical history: None Complications: No immediate complications. IMPRESSION: Percutaneous placement of a 16 Tanz[place] drainage catheter into the anterior right upper [...] Less than 10Standardized report: SIR_DrainPlacement_v3 AttestationSigner name: Coriteodoro Vincenzo attest that I was present for the entire procedure. I reviewed the stored images and agree with the report as written. Signed: Frida Daly MDReport Verified Date/Time: 10/02/2021 11:36:21 POCT-GLUCOSE [id number] 11:03:27 Test Item Value Reference Range Interpretation Comments POC-GLUCOSE METER 109 mg/dL 70-110 : TESTED A T [facility] 6720 (BEAKER) (test code = [facility], 1538) [address]: Pediatrics Physician/Techni dakota ID = [id number] for FAY SPARKS BAEZ BLOOD [id number] 10:09:04 Test Item Value Reference Interpretation Comments [...] gram 1123) positive cocci in clusters POCT-GLUCOSE [id number] 07:31:14 Test Item Value Reference Range Interpretation Comments POC-GLUCOSE METER 76 mg/dL 70-110 : TESTED A T [facility] 6720 (BEAKER) (test code = [facility], 1538) [address]: Pediatrics Physician/Techni dakota ID = [id number] for QUEEN JACOBSEN [id number] 07:25:22 Test Item Value Reference Range Interpretation Comments PHOSPHORUS (BEAKER) (test code = 3.1 mg/dL 2.3-4.7 604) Pediatrics Physician ID - RMHEPATIC FUNCTION [id number] 07:25:22 Test Item Value Reference Range Interpretation [...] (test code = 7 U/L 6-55 347) Pediatrics Physician ID - RMBASIC METABOLIC [id number] 07:25:21 Test Item Value Reference Range Interpretation [...] S NOT APPLICABLE FOR DIALYSIS PATIEN TS. Pediatrics Physician ID - [id number] 07:25:21 Test Item Value Reference Range Interpretation Comments MAGNESIUM (BEAKER) (test code = 1.6 mg/dL 1.6-2.6 627) Pediatrics Physician ID - RMCBC (HEMOGRAM ONLY)2021-10-02 06:32:43 Test [...] 0-0 (BEAKER) (test code = 413) POCT-GLUCOSE [id number] 21:46:52 Test Item Value Reference Range Interpretation Comments POC-GLUCOSE METER 229 mg/dL 70-110 H : TESTED A T [facility] 67 ([facility]) (test code = [facility]INDR[facility] [place] [facility], 153) [address]: Pediatrics Physician/Techni dakota ID = [id number] for HERLINDA VELASQUEZ POCT-GLUCOSE [id number] 16:53:40 Test Item Value Reference Range Interpretation Comments POC-GLUCOSE METER 231 mg/dL 70-110 H : Notified RN/MD: ([facility]) (test code = TESTED AT [facility] 6720 153) [facility], [address]: Pediatrics Physician/Techni dakota ID = [id number] for Filippo Feldman 2D Echo W/Doppler(CW/PW/Color)2021-10-01 14:03:19 Test Item Value Reference Range Interpretation Comments Ejection Fraction Est EF is 55-60% (test code = 2574) Radiology Study observation (narrative) (test code = 41870-5) PXN (test code = Alejandro Hudson MD PXN) - 10/01/2021 Transthoracic Echocardiography Report (TTE) Demographics Patient Name YAMILE, Date of Study 10/01/2021 DIXON Gender Male Visit Number [id number] Race Unknown Room Number 931 Number Date of 2000 Referring Physician Rebecca Echols Age 21 year(s) [employer] Garret Calderon [facility] [employer] Stefano Genao Interpreting Physician MAR Espinoza Procedure [...] Velocity: 2.26 m/s TR Gradient: 20.34 mmHg [facility]2D Echo W/Doppler(CW/PW/Color)2021-10-01 14:03:19 Test Item Value Reference Range Interpretation Comments Ejection Fraction Est EF is 55-60% (test code = 2574) Radiology Study observation (narrative) (test code = 16102-2) PXN (test code = Alejandro Hudson MD PXN) - 10/01/2021 Transthoracic Echocardiography Report (TTE) Demographics Patient Name YAMILE, Date of Study 10/01/2021 DIXON Gender Male Visit Number [id number] Race Unknown Room Number 931 Number Date of 2000 Referring Physician Rebecca Echols Age 21 year(s) [employer] Garret Calderon [facility] [employer] Stefano Genao Interpreting Physician MAR Espinoza Procedure Type of Study TTE procedure:2DECHO W DOPPLER(CW/PW/COLOR) (JON) Indications:Suspected infective endocarditis with positive cultures or newmurmur.Clinical HistoryBipolar 1 disorderStroke/TIAHyperte nsionSystemic Lupus erythematosusS/P AppendectomyHGB 9.8HCT 32.8 %Height: 69 inches Weight: 99.79 kg (220 lbs) BSA: 2.15 m^2 BMI: 32.49 kg/m^2HR: 93 bpm BP: 129/82 mmHg Summary No TTE evidence of endocarditis. Consider GAGANEDEP if clinically indicated. Normal left ventricular chamber [...] Velocity: 2.26 m/s TR Gradient: 20.34 mmHg [facility]2D Echo W/Doppler(CW/PW/Color)2021-10-01 14:03:19 Test Item Value Reference Range Interpretation Comments Ejection Fraction Est EF is 55-60% (test code = 2574) Radiology Study observation (narrative) (test code = 06059-5) PXN (test code = Alejandro Hudson MD PXN) - 10/01/2021 Transthoracic Echocardiography Report (TTE) Demographics Patient Name YAMILE, Date of Study 10/01/2021 DIXON Gender Male Visit Number [id number] Race Unknown Room Number 931 Number Date of 2000 Referring Physician Rebecca Echols Age 21 year(s) [employer] Garret Calderon [facility] [employer] Stefano Genao Interpreting Physician MAR Espinoza Procedure [...] Velocity: 2.26 m/s TR Gradient: 20.34 mmHg [facility]2D Echo W/Doppler(CW/PW/Color)2021-10-01 14:03:19 Test Item Value Reference Range Interpretation Comments Ejection Fraction Est EF is 55-60% (test code = 2574) Radiology Study observation (narrative) (test code = 14114-9) PXN (test code = Alejandro Hudson MD PXN) - 10/01/2021 Transthoracic Echocardiography Report (TTE) Demographics Patient Name YAMILE, Date of Study 10/01/2021 DIXON Gender Male Visit Number [id number] Race Unknown Room Number 931 Number Date of 2000 Referring Physician Rebecca Echols Age 21 year(s) [employer] Garret Calderon RDCS [employer] Stefano Genao Interpreting Physician MAR Espinoza Procedure [...] Velocity: 2.26 m/s TR Gradient: 20.34 mmHg [facility]2D Echo W/Doppler(CW/PW/Color)2021-10-01 14:03:19 Test Item Value Reference Range Interpretation Comments Ejection Fraction Est EF is 55-60% (test code = 2574) Radiology Study observation (narrative) (test code = 45794-5) PXN (test code = Alejandro Hudson MD PXN) - 10/01/2021 Transthoracic Echocardiography Report (TTE) Demographics Patient Name YAMILE, Date of Study 10/01/2021 DIXON Gender Male Visit Number [id number] Race Unknown Room Number 931 Number Date of 2000 Referring Physician Rebecca Echols Age 21 year(s) [employer] Garret Calderon [facility] [employer] Stefano Genao Interpreting Physician MAR Espinoza Procedure [...] Velocity: 2.26 m/s TR Gradient: 20.34 mmHg [facility]2D Echo W/Doppler(CW/PW/Color)2021-10-01 14:03:19 Test Item Value Reference Range Interpretation Comments Ejection Fraction Est EF is 55-60% (test code = 2574) Radiology Study observation (narrative) (test code = 67980-6) PXN (test code = Alejandro Hudson MD PXN) - 10/01/2021 Transthoracic Echocardiography Report (TTE) Demographics Patient Name YAMILE, Date of Study 10/01/2021 VANGIE Gender Male Visit Number [id number] Race Unknown Room Number 931 Number Date of 2000 Referring Physician Rebecca Echols Age 21 year(s) [employer] Garret Calderon [facility] [employer] Stefano Genao Interpreting Physician MAR Espinoza Procedure [...] Velocity: 2.26 m/s TR Gradient: 20.34 mmHg [facility]2D Echo W/Doppler(CW/PW/Color)2021-10-01 14:03:19 Test Item Value Reference Range Interpretation Comments Ejection Fraction Est EF is 55-60% (test code = 2574) Radiology Study observation (narrative) (test code = 69184-5) PXN (test code = Alejandro Hudson MD PXN) - 10/01/2021 Transthoracic Echocardiography Report (TTE) Demographics Patient Name YAMILE, Date of Study 10/01/2021 VANGIE Gender Male Visit Number [id number] Race Unknown Room Number 931 Number Date of 2000 Referring Physician Rebecca Echols Age 21 year(s) [employer] Garret Calderon [facility] [employer] Stefano Genao Interpreting Physician MAR Espinoza Procedure [...] Velocity: 2.26 m/s TR Gradient: 20.34 mmHg [facility]2D Echo W/Doppler(CW/PW/Color)2021-10-01 14:03:19 Test Item Value Reference Range Interpretation Comments Ejection Fraction Est EF is 55-60% (test code = 2574) Radiology Study observation (narrative) (test code = 14983-7) PXN (test code = Alejandro Hudson MD PXN) - 10/01/2021 Transthoracic Echocardiography Report (TTE) Demographics Patient Name YAMILE, Date of Study 10/01/2021 VANGIE Gender Male Visit Number [id number] Race Unknown Room Number 931 Number Date of 2000 Referring Physician Rebecca Echols Age 21 year(s) [employer] Garret Calderon [facility] [employer] Stefano Genao Interpreting Physician MAR Espinoza Procedure [...] Velocity: 2.26 m/s TR Gradient: 20.34 mmHg [facility]2D Echo W/Doppler(CW/PW/Color)2021-10-01 14:03:19 Test Item Value Reference Range Interpretation Comments Ejection Fraction Est EF is 55-60% (test code = 2574) Radiology Study observation (narrative) (test code = 74588-9) PXN (test code = Alejandro Hudson MD PXN) - 10/01/2021 Transthoracic Echocardiography Report (TTE) Demographics Patient Name YAMILE, Date of Study 10/01/2021 DIXON Gender Male Visit Number [id number] Race Unknown Room Number 931 Number Date of 2000 Referring Physician Rebecca Echols Age 21 year(s) [employer] Garret Calderon RDCS [employer] Stefano Genao Interpreting Physician MAR Espinoza Procedure [...] Velocity: 2.26 m/s TR Gradient: 20.34 mmHg [facility]2D Echo W/Doppler(CW/PW/Color)2021-10-01 14:03:19 Test Item Value Reference Range Interpretation Comments Ejection Fraction Est EF is 55-60% (test code = 2574) Radiology Study observation (narrative) (test code = 36451-7) PXN (test code = Alejandro Hudson MD PXN) - 10/01/2021 Transthoracic Echocardiography Report (TTE) Demographics Patient Name YAMILE, Date of Study 10/01/2021 DIXON Gender Male Visit Number [id number] Race Unknown Room Number 931 Number Date of 2000 Referring Physician Rebecca Echols Age 21 year(s) [employer] Garret Calderon RD [employer] Stefano Genao Interpreting Physician MAR Espinoza Procedure [...] Velocity: 2.26 m/s TR Gradient: 20.34 mmHg [facility]2D Echo W/Doppler(CW/PW/Color)2021-10-01 14:03:19 Test Item Value Reference Range Interpretation Comments Ejection Fraction Est EF is 55-60% (test code = 2574) Radiology Study observation (narrative) (test code = 87636-5) PXN (test code = Alejandro Hudson MD PXN) - 10/01/2021 Transthoracic Echocardiography Report (TTE) Demographics Patient Name YAMILE, Date of Study 10/01/2021 DIXON Gender Male Visit Number [id number] Race Unknown Room Number 931 Number Date of 2000 Referring Physician Rebecca Echols Age 21 year(s) [employer] Garret Calderon [facility] [employer] Stefano Genao Interpreting Physician MAR Espinoza Procedure [...] Velocity: 2.26 m/s TR Gradient: 20.34 mmHg [facility] [id number] 12:29:44 Test Item Value Reference Range Interpretation Comments POC-GLUCOSE METER 186 mg/dL 70-110 H : TESTED A T [facility] 6720 (GENEVA) (test code = [place], 1538) [address]: Pediatrics Physician/Techni dakota ID = [id number] for DELMAR COOPER CT, ABDOMEN - PELVIS, PANCREAS [id number] 09:34:00Please have IV contrast if not already part of protocol.Unlisted Reason for Exam - Click Yes and Enter Reason Below->No [facility] : 2000 Sex: [...] necrosis Superior Mesenteric Arter y: Patent Celiac Foster: Patent Celiac Foster and Hepatic Artery Anatomy: Conventional Gastroduodenal Artery: Patent Splenic Artery: Patent Main Portal Vein: Patent Portal Vein [place]: Patent Splenic Vein: Patent Superior Mesenteric Vein: [...] [place] MDReport Verified Date/Time: 10/01/2021 09:34:00 BLOOD [id number] 08:36:30 Test Item Value Reference Range Interpretation [...] in clusters BODY FLUID CULTURE + GRAM [id number] 08:15:57 Test Item Value Reference Range Interpretation [...] gram negative (BEAKER) (test code = rods 823423) [id number] 05:43:54 Test Item Value Reference Range Interpretation Comments PHOSPHORUS (BEAKER) (test code = 2.8 mg/dL 2.3-4.7 604) Pediatrics Physician ID Cherelle SWANN WHEPATIC FUNCTION [id number] 05:43:54 Test Item Value Reference Range Interpretation [...] (test code = 7 U/L 6-55 347) Pediatrics Physician BEATRIZ SWANN WBASIC METABOLIC [id number] 05:43:53 Test Item Value Reference Range Interpretation [...] S NOT APPLICABLE FOR DIALYSIS PATIEN TS. Pediatrics Physician ID Cherelle SWANN [id number] 05:43:53 Test Item Value Reference Range Interpretation Comments MAGNESIUM (BEAKER) (test code = 1.4 mg/dL 1.6-2.6 L 627) Pediatrics Physician ID Cherelle SWANN WCBC (HEMOGRAM ONLY)2021-10-01 05:31:02 [...] (BEAKER) (test code = 413) Prepare Leuko-Red [id number] 23:54:00 Test Item Value Reference Range Interpretation Comments CROSSMATCH (test code = 2264) COMPATIBLE Unit ABO (test code = A Pos 8173325) UNIT NUMBER (test code = [id number] 934-0) Status (test code = 9858282) TX_TIMEINCHART Blood Bank Product (test code RED BLOOD CELLS = 2263) PRODUCT CODE (test code = U3393C10 933-2) [facility] [id number] 23:54:00 Test Item Value Reference Range Interpretation Comments CROSSMATCH (test code = 2264) COMPATIBLE Unit ABO (test code = A Pos 1514344) UNIT NUMBER (test code = [id number] 934-0) Status (test code = 9471285) TX_TIMEINCHART Blood Bank Product (test code RED BLOOD CELLS = 2263) PRODUCT CODE (test code = I3769B55 933-2) [facility]Red [id number] 23:54:00 Test Item Value Reference Range Interpretation Comments CROSSMATCH (test code = 2264) COMPATIBLE Unit ABO (test code = A Pos 9737164) UNIT NUMBER (test code = [id number] 934-0) Status (test code = 6616544) TX_TIMEINCHART Blood Bank Product (test code RED BLOOD CELLS = 2263) PRODUCT CODE (test code = A1086X65 933-2) [facility]uk[facility]Red [id number] 23:54:00 Test Item Value Reference Range Interpretation Comments CROSSMATCH (test code = 2264) COMPATIBLE Unit ABO (test code = A Pos 5331570) UNIT NUMBER (test code = [id number] 934-0) Status (test code = 9071689) TX_TIMEINCHART Blood Bank Product (test code RED BLOOD CELLS = 2263) PRODUCT CODE (test code = P0062H07 933-2) [facility] [id number] 23:54:00 Test Item Value Reference Range Interpretation Comments CROSSMATCH (test code = 2264) COMPATIBLE Unit ABO (test code = A Pos 3649676) UNIT NUMBER (test code = [id number] 934-0) Status (test code = 8368510) TX_TIMEINCHART Blood Bank Product (test code RED BLOOD CELLS = 2263) PRODUCT CODE (test code = L8962I81 933-2) [facility]uk[facility]Red [id number] 23:54:00 Test Item Value Reference Range Interpretation Comments CROSSMATCH (test code = 2264) COMPATIBLE Unit ABO (test code = A Pos 9793738) UNIT NUMBER (test code = [id number] 934-0) Status (test code = 9920592) [facility] Blood Bank Product (test code RED BLOOD CELLS = 2263) PRODUCT CODE (test code = J0422A87 933-2) [facility] Leuk[facility]Red [id number] 23:54:00 Test Item Value Reference Range Interpretation Comments CROSSMATCH (test code = 2264) COMPATIBLE Unit ABO (test code = A Pos 0174772) UNIT NUMBER (test code = [id number] 934-0) Status (test code = 2047091) [facility] Blood Bank Product (test code RED BLOOD CELLS = 2263) PRODUCT CODE (test code = W4870L73 933-2) [facility] Leuk[facility]-Red [id number] 23:54:00 Test Item Value Reference Range Interpretation Comments CROSSMATCH (test code = 2264) COMPATIBLE Unit ABO (test code = A Pos 9818493) UNIT NUMBER (test code = [id number] 934-0) Status (test code = 9504438) [facility] Blood Bank Product (test code RED BLOOD CELLS = 2263) PRODUCT CODE (test code = E3224A15 933-2) [facility] Leuko-Red [id number] 23:54:00 Test Item Value Reference Range Interpretation Comments CROSSMATCH (test code = 2264) COMPATIBLE Unit ABO (test code = A Pos 2673181) UNIT NUMBER (test code = [id number] 934-0) Status (test code = 9713473) [facility] Blood Bank Product (test code RED BLOOD CELLS = 2263) PRODUCT CODE (test code = S3356C04 933-2) [facility] Leuko-Red [id number] 23:54:00 Test Item Value Reference Range Interpretation Comments CROSSMATCH (test code = 2264) COMPATIBLE Unit ABO (test code = A Pos 3821117) UNIT NUMBER (test code = [id number] 934-0) Status (test code = 6489764) TX_TIMEINCHART Blood Bank Product (test code RED BLOOD CELLS = 2263) PRODUCT CODE (test code = L5986Q10 933-2) [facility] Leuko-Red [id number] 23:54:00 Test Item Value Reference Range Interpretation Comments CROSSMATCH (test code = 2264) COMPATIBLE Unit ABO (test code = A Pos 0470414) UNIT NUMBER (test code = [id number] 934-0) Status (test code = 6889505) TX_TIMEINCHART Blood Bank Product (test code RED BLOOD CELLS = 2263) PRODUCT CODE (test code = K6415F23 933-2) [facility] CenterPO[facility] [id number] 22:44:20 Test Item Value Reference Range Interpretation Comments POC-GLUCOSE METER 162 mg/dL 70-110 H : TESTED A T [facility] 6720 (BEAKER) (test code = [facility], 153) [address]: Pediatrics Physician/Techni dakota ID = [id number] for MARCOS WESTFALL POCT-GLUCOSE [id number] 17:43:25 Test Item Value Reference Range Interpretation Comments POC-GLUCOSE METER 145 mg/dL 70-110 H : TESTED A T [facility] 6720 (BEAKER) (test code = [facility], 153) [address]: Pediatrics Physician/Techni dakota ID = [id number] for DELMAR COOPER POCT-GLUCOSE [id number] 12:01:10 Test Item Value Reference Range Interpretation Comments POC-GLUCOSE METER 147 mg/dL 70-110 H : TESTED A T [facility] 6720 (BEAKER) (test code = [facility], 153) [address]: Pediatrics Physician/Techni dakota ID = [id number] for DELMAR COOPER POCT-GLUCOSE [id number] 07:49:49 Test Item Value Reference Range Interpretation Comments POC-GLUCOSE METER 131 mg/dL 70-110 H : TESTED A T [facility] 6720 (BEAKER) (test code = [facility], 153) [address]: Pediatrics Physician/Techni dakota ID = [id number] for DELMAR COOPER COMPLEMENT COMPONENT [id number] 02:28:40 Test Item Value Reference Range Interpretation Comments C4 COMPLEMENT (BEAKER) (test code = 5 mg/dL 15-57 L 394) Pediatrics Physician ID - BSCOMPLEMENT COMPONENT [id number] 02:28:40 Test Item Value Reference Range Interpretation Comments C3 COMPLEMENT (BEAKER) (test code = 38 mg/dL 82-193 L 393) Pediatrics Physician ID - BSHEPATIC FUNCTION [id number] 02:27:21 Test Item Value Reference Range Interpretation [...] (test code = 11 U/L 6-55 347) Pediatrics Physician ID - [id number] 02:27:20 Test Item Value Reference Range Interpretation Comments MAGNESIUM (BEAKER) (test code = 1.6 mg/dL 1.6-2.6 627) Pediatrics Physician ID - [id number] 02:27:20 Test Item Value Reference Range Interpretation Comments PHOSPHORUS (BEAKER) (test code = 3.0 mg/dL 2.3-4.7 604) Pediatrics Physician ID - BSBASIC METABOLIC [id number] 02:27:19 Test Item Value Reference Range Interpretation [...] S NOT APPLICABLE FOR DIALYSIS PATIEN TS. Pediatrics Physician ID - BSVANCOMYCIN LEVEL, [id number] 02:21:15 Test Item Value Reference Range Interpretation Comments VANCOMYCIN TROUGH (BEAKER) (test 22.5 ug/mL 10.0-20.0 H code = 522) Pediatrics Physician ID - BSCBC (HEMOGRAM ONLY)2021-09-30 02:04:23 Test [...] H (BEAKER) (test code = 413) POCT-GLUCOSE [id number] 20:56:24 Test Item Value Reference Range Interpretation Comments POC-GLUCOSE METER 187 mg/dL 70-110 H : TESTED A T [facility] 6720 (BEAKER) (test code = [place], 1538) [address]: Pediatrics Physician/Techni dakota ID = [id number] for HERLINDA VELASQUEZ CREATININE, RANDOM [id number] 19:52:48 Test Item Value Reference Range Interpretation Comments CREATININE URINE (BEAKER) (test 38.8 mg/dL code = 375) Reference Range: No NormalsOperator ID - BSPROTEIN, RANDOM [id number] 19:52:48 Test Item Value Reference Range Interpretation Comments PROTEIN, URINE (BEAKER) (test code = 25 mg/dL 0-14 H 1569) Pediatrics Physician ID - BSURINALYSIS W/ [id number] 18:44:32 Test Item Value Reference Range Interpretation [...] = 1521) SOURCE(BEAKER) (test code = 2795) Pediatrics Physician ID - [auto]Pediatrics Physician ID - techAmylase, body [id number] 09:10:30 Test Item Value Reference Range Interpretation Comments Amylase, Fluid (test 18 U/L code = 1795-4) IDALIA (test code = Absence of reference IDALIA) range indicates that normals have not been defined.Assay performance has not been validated for this type of specimen. Pediatrics Physician ID - [id number] [facility] CenterAmylase, body [id number] 09:10:30 Test Item Value Reference Range Interpretation Comments Amylase, Fluid (test 18 U/L code = 1795-4) IDALIA (test code = Absence of reference IDALIA) range indicates that normals have not been defined.Assay performance has not been validated for this type of specimen. Pediatrics Physician ID - [id number] [facility] CenterAmylase, body [id number] 09:10:30 Test Item Value Reference Range Interpretation Comments Amylase, Fluid (test 18 U/L code = 1795-4) IDALIA (test code = Absence of reference IDALIA) range indicates that normals have not been defined.Assay performance has not been validated for this type of specimen. Pediatrics Physician ID - [id number] [facility] CenterAmylase, body [id number] 09:10:30 Test Item Value Reference Range Interpretation Comments Amylase, Fluid (test 18 U/L code = 1795-4) IDALIA (test code = Absence of reference IDALIA) range indicates that normals have not been defined.Assay performance has not been validated for this type of specimen. Pediatrics Physician ID - [id number] [facility] CenterAmylase, body [id number] 09:10:30 Test Item Value Reference Range Interpretation Comments Amylase, Fluid (test 18 U/L code = 1795-4) IDALIA (test code = Absence of reference IDALIA) range indicates that normals have not been defined.Assay performance has not been validated for this type of specimen. Pediatrics Physician ID - [id number] [facility] CenterAmylase, body [id number] 09:10:30 Test Item Value Reference Range Interpretation Comments Amylase, Fluid (test 18 U/L code = 1795-4) IDALIA (test code = Absence of reference IDALIA) range indicates that normals have not been defined.Assay performance has not been validated for this type of specimen. Pediatrics Physician ID - [id number] [facility] CenterAmylase, body [id number] 09:10:30 Test Item Value Reference Range Interpretation Comments Amylase, Fluid (test 18 U/L code = 1795-4) IDALIA (test code = Absence of reference IDALIA) range indicates that normals have not been defined.Assay performance has not been validated for this type of specimen. Pediatrics Physician ID - [id number] [facility] CenterAmylase, body [id number] 09:10:30 Test Item Value Reference Range Interpretation Comments Amylase, Fluid (test 18 U/L code = 1795-4) IDALIA (test code = Absence of reference IDALIA) range indicates that normals have not been defined.Assay performance has not been validated for this type of specimen. Pediatrics Physician ID - [id number] [facility] CenterAmylase, body [id number] 09:10:30 Test Item Value Reference Range Interpretation Comments Amylase, Fluid (test 18 U/L code = 1795-4) IDALIA (test code = Absence of reference IDALIA) range indicates that normals have not been defined.Assay performance has not been validated for this type of specimen. Pediatrics Physician ID - [id number] [facility] CenterAmylase, body [id number] 09:10:30 Test Item Value Reference Range Interpretation Comments Amylase, Fluid (test 18 U/L code = 1795-4) IDALIA (test code = Absence of reference IDALIA) range indicates that normals have not been defined.Assay performance has not been validated for this type of specimen. Pediatrics Physician ID - [id number] [facility] CenterAmylase, body [id number] 09:10:30 Test Item Value Reference Range Interpretation Comments Amylase, Fluid (test 18 U/L code = 1795-4) IDALIA (test code = Absence of reference IDALIA) range indicates that normals have not been defined.Assay performance has not been validated for this type of specimen. Pediatrics Physician ID - [id number] [facility] CenterAMYLASE, BODY [id number] 09:10:30 Test Item Value Reference Range Interpretation Comments AMYLASE FLUID (BEAKER) (test code = 18 U/L 350) Absence of reference range indicates that normals have not been defined.Assay performance has not been validated for this type of specimen.Pediatrics Physician ID - [id number] 08:52:13 Test Item Value Reference Range Interpretation Comments POC-GLUCOSE METER 103 mg/dL 70-110 : TESTED A T [facility] 6720 (BEAKER) (test code = [place], 1538) [address]: Pediatrics Physician/Techni dakota ID = [id number] for DELMAR COOPER [id number] 05:58:12 Test Item Value Reference Range Interpretation Comments PHOSPHORUS (BEAKER) (test code = 3.7 mg/dL 2.3-4.7 604) Pediatrics Physician ID - BISI GHEPATIC FUNCTION [id number] 05:58:12 Test Item Value Reference Range Interpretation [...] (test code = 10 U/L 6-55 347) Pediatrics Physician ID - BISI GBASIC METABOLIC [id number] 05:58:11 Test Item Value Reference Range Interpretation [...] S NOT APPLICABLE FOR DIALYSIS PATIEN TS. Pediatrics Physician ID - BISI [id number] 05:58:11 Test Item Value Reference Range Interpretation Comments MAGNESIUM (BEAKER) (test code = 1.7 mg/dL 1.6-2.6 627) Pediatrics Physician ID - BISI GCBC (HEMOGRAM ONLY)2021-09-29 05:50:24 [...] H (BEAKER) (test code = 413) PROTHROMBIN TIME/[id number] 05:37:22 Test Item Value Reference Range Interpretation Comments PROTIME (BEAKER) 15.2 seconds 11.9-14.2 H (test code = 759) INR (BEAKER) (test 1.22 See_Comment [Automat ed message] code = 370) The system [employer] generated this result transmitted ref erence range: <=5.90. The reference range was not used to int erpret this result as normal/abnormal . RECOMMENDED COUMADIN/WARFARIN INR THERAPY RANGESSTANDARD DOSE: 2.0 - 3.0 Includes: PROPHYLAXIS for venous thrombosis, systemic embolization; TREATMENT for venous thrombosis and/or pulmonary embolus.HIGH RISK: Target INR is 2.5-3.5 for patients with mechanical heart valves.POCT-GLUCOSE [id number] 20:50:31 Test Item Value Reference Range Interpretation Comments POC-GLUCOSE METER 159 mg/dL 70-110 H : Notified RN/MD: (GENEVA) (test code = TESTED AT [facility] 6720 1538) [facility], [address]: Pediatrics Physician/Techni dakota ID = [id number] for [facility], CHEST, 1 VIEW, NON [id number] 19:15:00Reason for exam:->preop patient for OR tomorrowShould this be performed at the bedside?->Yes [facility] 2000 Sex: [...] overlies the upper arm. Signed: Miles Alicia MDRort Verified Date/Time: 09/28/2021 19:15:11 BLOOD CULTURE IDENTIFICATION [id number] 18:24:37 Test Item Value Reference Interpretation Comments Range LISTERIA MONOCYTOGENES Not detected Not detected (test code = 7368181) STAPHYLOCOCCUS (test Detected Not detected A Coagula se negative code = 6407727) Staph specie s (CoNS)- methici llin resistantFirst- line therapy: Vancom ycin MecA DETECTED Possible contamination. The likelihood of pathogenicity i s increased if th e organism is observed in multiple blood cultures obtain ed from separate venipunctures. Reference Range : Not Detected STAPHYLOCOCCUS AUREUS Not detected Not detected (test code = 3605130) STREPTOCOCCUS (test code Not detected Not detected = 0720505) STREPTOCOCCUS AGALACTIAE Not detected Not detected (GROUP B) (test code = 0549063) STREPTOCOCCUS PNEUMONIAE Not detected Not detected (test code = 2686888) STREPTOCOCCUS PYOGENES Not detected Not detected (GROUP A) (test code = 4017729) ACINETOBACTER BAUMANNII Not detected Not detected (test code = 7920126) HAEMOPHILUS INFLUENZAE Not detected Not detected (test code = 4957136) NEISSERIA MENINGITIDIS Not detected Not detected (test code = 3734181) ENTEROBACTERIACEAE (test Not detected Not detected code = 0949550) ENTEROBACTER CLOACOE Not detected Not detected COMPLEX (test code = 5659654) KLEBSIELLA OXYTOCA (test Not detected Not detected code = 4041340) KLEBSIELLA PNEUMONIAE Not detected Not detected (test code = 1650) PROTEUS (test code = Not detected Not detected 7939506) SERRATIA MARCESCENS Not detected Not detected (test code = 9401861) STACEY ALBICANS (test Not detected Not detected code = 4130573) STACEY GLABRATA (test Not detected Not detected code = 0545182) STACEY KRUSEI (test Not detected Not detected code = 2819108) STACEY PARAPSILOSIS Not detected Not detected (test code = 0823902) STACEY TROPICALIS (test Not detected Not detected code = 1432811) ESCHERICHIA COLI (test Not detected Not detected code = 5224183) METHICILLIN-RESISTANCE Detected Not detected A Note: Antimicrobial GENE (test code = resistance can 3066705) occur via multi ple mechanisms. A N ot Detected result for the Hyphen 8Array antimicrobial resistance gene assays does not indicate antimicrobial susceptibility. Subculturing is required for species identification and susceptibility testing of isolates. VANCOMYCIN-RESISTANCE GENE (test code = 1120032) CARBAPENEM-RESISTANCE GENE (test code = 9570704) ENTEROCOCCUS-BEAKER Not detected Not detected (test code = 0073137) PSEUDOMONAS Not detected Not detected AERUGINOSA-BEAKER (test code = 2643729) Other bacteria and resistance markers not targeted by this PCR panel cannot be excluded; therefore clinical correlation and follow up of serology, culture results, and other molecular studies is required. The results are not intended to be used as the sole means for clinical diagnosis or patient management decisions. This sample was tested at the [facility] using the [employer] Blood Culture ID Panel. It is FDA cleared and has been verified and approved by the [facility] for clinical use. This laboratory is CLIA-certified and College ofAmerican Pathologists (CAP)-accredited to perform high complexity testing.HEMOGLOBIN AND [id number] 17:52:48 Test Item Value Reference Range Interpretation Comments HEMOGLOBIN (BEAKER) (test code = 7.2 GM/DL 13.7-17.5 L 410) HEMATOCRIT (BEAKER) (test code = 24.6 % 40.1-51.0 L 411) Pediatrics Physician ID - [id number] 12:45:54 Test Item Value Reference Range Interpretation Comments Amylase (test code = 32 U/L 25-125 1798-8) IDALIA (test code = IDALIA) Pediatrics Physician ID - PIAYA L Lab Interpretation (test Normal code = 96773-3) [facility] 12:[facility]54 Test Item Value Reference Range Interpretation Comments Amylase (test code = 32 U/L 25-125 1798-8) IDALIA (test code = IDALIA) Pediatrics Physician ID - PIAYA L Lab Interpretation (test Normal code = 44623-4) [facility] 12:45:54 Test Item Value Reference Range Interpretation Comments Amylase (test code = 32 U/L 25-125 1798-8) IDALIA (test code = IDALIA) Pediatrics Physician ID - PIAYA L Lab Interpretation (test Normal code = 88542-1) [facility] 12:45:54 Test Item Value Reference Range Interpretation Comments Amylase (test code = 32 U/L 25-125 1798-8) IDALIA (test code = IDALIA) Pediatrics Physician ID - PIAYA L Lab Interpretation (test Normal code = 52299-4) [facility] 12:45:54 Test Item Value Reference Range Interpretation Comments Amylase (test code = 32 U/L 25-125 1798-8) IDALIA (test code = IDALIA) Pediatrics Physician ID - PIAYA L Lab Interpretation (test Normal code = 44166-0) [facility] 12:45:54 Test Item Value Reference Range Interpretation Comments Amylase (test code = 32 U/L 25-125 1798-8) IDALIA (test code = IDALIA) Pediatrics Physician ID - PIAYA L Lab Interpretation (test Normal code = 18855-3) [facility] 12:45:54 Test Item Value Reference Range Interpretation Comments Amylase (test code = 32 U/L 25-125 1798-8) IDALIA (test code = IDALIA) Pediatrics Physician ID - PIAYA L Lab Interpretation (test Normal code = 57275-2) [facility] 12:45:54 Test Item Value Reference Range Interpretation Comments Amylase (test code = 32 U/L 25-125 1798-8) IDALIA (test code = IDALIA) Pediatrics Physician ID - PIAYA L Lab Interpretation (test Normal code = 67865-0) [facility] 12:45:54 Test Item Value Reference Range Interpretation Comments Amylase (test code = 32 U/L 25-125 1798-8) IDALIA (test code = IDALIA) Pediatrics Physician ID - PIAYA L Lab Interpretation (test Normal code = 64903-6) [facility] 12:45:54 Test Item Value Reference Range Interpretation Comments Amylase (test code = 32 U/L 25-125 1798-8) IDALIA (test code = IDALIA) Pediatrics Physician ID - PIAYA L Lab Interpretation (test Normal code = 60851-7) [facility] 12:45:54 Test Item Value Reference Range Interpretation Comments Amylase (test code = 32 U/L 25-125 1798-8) IDALIA (test code = IDALIA) Pediatrics Physician ID - PIAYA L Lab Interpretation (test Normal code = 62482-7) [facility] 12:45:54 Test Item Value Reference Range Interpretation Comments AMYLASE (BEAKER) (test code = 349) 32 U/L 25-125 Pediatrics Physician ID - MARIBEL LPOCT-GLUCOSE [id number] 12:21:36 Test Item Value Reference Range Interpretation Comments POC-GLUCOSE METER 89 mg/dL 70-110 : TESTED A T [facility] 6720 (BEAKER) (test code = DONNA [place] [facility], 1538) 80715: Pediatrics Physician/Techni dakota ID = [id number] for Milena Wei POCT-GLUCOSE [id number] 07:58:39 Test Item Value Reference Range Interpretation Comments POC-GLUCOSE METER 101 mg/dL 70-110 : TESTED A T [facility] 6720 (BEAKER) (test code DIN[place]A [facility], = 1538) 39204: Pediatrics Physician/Techni dakota ID = [id number] for Martha Bell (CELLAVISION MANUAL DIFF)2021-09-28 06:59:01 [...] CONCENTRATION Adequate (CELLAVISION)(BEAKER) (test code = 3438) Pediatrics Physician ID - HannaOperator ID - Rebecca Elizondo comments: Slide comments: CBC W/PLT COUNT & AUTO [id number] 06:59:00 Test Item Value Reference Range Interpretation [...] 0-0 (BEAKER) (test code = 413) SARS-COV2/RT-PCR ([facility])2021-09-28 05:26:25 Test Item Value Reference Range Interpretation Comments SARS-COV2/RT-PCR Negative Negative The SARS-Co V-2 target (test code = nucleic acids a re not 8705276) detected in thi s specimen. Negative result [...] revoked sooner. Fact Sheet for Healthcare Providers: https://www.[employer] om/Documents/Xpert%20Xpress%20SARS%20CoV-2/Fact%20Sheets/3023802%72MYYC-EIK-2%2 0HEALTHCARE%20PROVIDERS%20FACT%20SHEET.pdf Fact Sheet for Healthcare Patients: https://www.[employer]/Documents/Xpert%20X press%20SARS%20CoV-2/Fact%20Sheets/3023801%22ORDA-EBS-7%20PATIENT%20FACT%20SHEE T.pdfBASIC METABOLIC [id number] 05:15:58 Test Item Value Reference Range Interpretation [...] S NOT APPLICABLE FOR DIALYSIS PATIEN TS. Pediatrics Physician ID - [id number] 04:33:33 Test Item Value Reference Range Interpretation Comments PHOSPHORUS (BEAKER) (test code = 4.1 mg/dL 2.3-4.7 604) Pediatrics Physician ID - BSHEPATIC FUNCTION [id number] 04:33:33 Test Item Value Reference Range Interpretation [...] (test code = 11 U/L 6-55 347) Pediatrics Physician ID - [id number] 04:33:32 Test Item Value Reference Range Interpretation Comments MAGNESIUM (BEAKER) (test code = 1.5 mg/dL 1.6-2.6 L 627) Pediatrics Physician ID - BSLACTIC ACID, [id number] 04:27:30 Test Item Value Reference Range Interpretation Comments LACTATE BLOOD VENOUS (2) (BEAKER) 1.04 mmol/L 0.50-2.20 (test code = 2872) Pediatrics Physician ID - BSPROTHROMBIN TIME/[id number] 04:23:49 Test Item Value Reference Range Interpretation Comments PROTIME (BEAKER) 15.5 seconds 11.9-14.2 H (test code = 759) INR (BEAKER) (test 1.25 See_Comment [Automat ed message] code = 370) The system Appwiz generated this result transmitted ref erence range: <=5.90. The reference range was not used to int erpret this result as normal/abnormal . RECOMMENDED COUMADIN/WARFARIN INR THERAPY RANGESSTANDARD DOSE: 2.0 - 3.0 Includes: PROPHYLAXIS for venous thrombosis, systemic embolization; TREATMENT for venous thrombosis and/or pulmonary embolus.HIGH RISK: Target INR is 2.5-3.5 for patients with mechanical heart valves.CT, [id number] 00:01:00Unlisted Reason for Exam - Click Yes and Enter Reason Below->YesUnlisted Reason for Exam->necrotizing panc on OSH imagingIs this for enterography?->NoWill this procedure require oral contrast?->No [facility] 2000 Sex: [...] CONCENTRATION Adequate (CELLAVISION)(BEAKER) (test code = 3438) Pediatrics Physician ID - Romelia Dashawn comments: Slide comments:COMPREHENSIVE METABOLIC [id number] 22:28:04 Test Item Value Reference Range Interpretation [...] S NOT APPLICABLE FOR DIALYSIS PATIEN TS. Pediatrics Physician ID - [id number] 22:28:04 Test Item Value Reference Range Interpretation Comments LIPASE (BEAKER) (test code = 749) 24 U/L 8-78 Pediatrics Physician ID - BSLACTIC ACID, [id number] 22:22:02 Test Item Value Reference Range Interpretation Comments LACTATE BLOOD VENOUS 1.20 mmol/L 0.50-2.20 Specime n slightly (2) (BEAKER) (test hemolyzed code = 3176) Pediatrics Physician ID - BSPROTHROMBIN TIME/[id number] 22:18:27 Test Item Value Reference Range Interpretation Comments PROTIME (BEAKER) 15.2 seconds 11.9-14.2 H (test code = 759) INR (BEAKER) (test 1.22 See_Comment [Automat ed message] code = 370) The system Appwiz generated this result transmitted ref erence range: <=5.90. The reference range was not used to int erpret this result as normal/abnormal . RECOMMENDED COUMADIN/WARFARIN INR THERAPY RANGESSTANDARD DOSE: 2.0 - 3.0 Includes: PROPHYLAXIS for venous thrombosis, systemic embolization; TREATMENT for venous thrombosis and/or pulmonary embolus.HIGH RISK: Target INR is 2.5-3.5 for patients with mechanical heart valves.CBC W/PLT COUNT & AUTO [id number] 22:11:15 Test Item Value Reference Range Interpretation [...] = 413) RAD, CHEST, 1 VIEW, NON [id number] 21:03:00Reason for exam:->ABNORMAL IMAGING RESULTShould this be performed at the bedside?->Yes [facility] : 2000 Sex: [...] IMPRESSION:No acute cardiopulmonary process. Signed: Andrés Holloway [facility] Verified Date/Time: 09/27/2021 21:03:24 - CT ABDOMEN W W/O CONTRAST 2021-09-27 15:48:00 [facility] : 2000 Sex: M FAX: Willard Vaughn Jr [phone] [place]: St: REG Name: VANGIE OVALLE [facility] : 2000 Age/S: 21/M [address] Unit: [id number] Loc: [place] [address] Phys: Willard Crouch Jr, MD Acct: [id number] Dis Date: Status: REG CLI PHONE #: [phone] Exam Date: 09/27/2021 1530 FAX #: [phone]: PANCREATITIS EXAMS: CPT CODE: [id number] CT ABDOMEN W W/O CONTRAST 29542 EXAM: CT ABDOMEN WITH AND WITHOUT CONTRAST [...] Signed Report (CONTINUED) FAX: Willard Vaughn Jr [phone] [place]: St: REG Name: VANGIE OVALLE [facility] Robert : 2000 Age/S: 21/M [address] Unit: [id number] Loc: [place] [address] Phys: Willard Crouch Jr, MD Acct: [id number] Dis Date: Status: REG CLI PHONE #: [phone] Exam Date: 09/27/2021 1530 FAX #: [phone] Reason: PANCREATITIS EXAMS: CPT CODE: [id number] CT ABDOMEN W W/O CONTRAST 33739 (Continued) IMPRESSION: 1. Slight heterogeneous enhancement of [...] CODING PURPOSES ONLY RESULT CODE: CVR at 7553 Reported and signed by: Vandana Madison MD CC: Willard Crouch Jr Technologist: LAMBERTO ARTEAGA Trnscrd Dt/Tm: 09/27/2021 (2017) t.[email or web address] Orig Print D/T: S: 09/27/2021 (9380 PAGE 2 Signed ReportBEDSIDE [id number] 15:20:00 Test Item Value Reference Range Interpretation Comments BEDSIDE CREATININE (test code = 0.7 MG/DL 0.5-1.0 N CREATBED) Fecal [id number] 22:49:02 Test Item Value Reference Range Interpretation Comments Fecal Leukocytes (test No fecal leukocytes No fecal leukocytes code = 82432-0) seen seen Lab Interpretation Normal (test code = 20428-3) [facility] [id number] 22:49:02 Test Item Value Reference Range Interpretation Comments Fecal Leukocytes (test No fecal leukocytes No fecal leukocytes code = 04307-4) seen seen Lab Interpretation Normal (test code = 09932-5) [facility] [id number] 22:49:02 Test Item Value Reference Range Interpretation Comments Fecal Leukocytes (test No fecal leukocytes No fecal leukocytes code = 41347-9) seen seen Lab Interpretation Normal (test code = 51606-8) [facility] [id number] 22:49:02 Test Item Value Reference Range Interpretation Comments Fecal Leukocytes (test No fecal leukocytes No fecal leukocytes code = 22328-5) seen seen Lab Interpretation Normal (test code = 64935-4) [facility] nskbrjfcjo3553-03-23 22:49:02 Test Item Value Reference Range Interpretation Comments Fecal Leukocytes (test No fecal leukocytes No fecal leukocytes code = 23910-7) seen seen Lab Interpretation Normal (test code = 05247-9) [facility] [id number] 22:49:02 Test Item Value Reference Range Interpretation Comments Fecal Leukocytes (test No fecal leukocytes No fecal leukocytes code = 44339-4) seen seen Lab Interpretation Normal (test code = 85931-6) [facility] [id number] 22:49:02 Test Item Value Reference Range Interpretation Comments Fecal Leukocytes (test No fecal leukocytes No fecal leukocytes code = 09622-1) seen seen Lab Interpretation Normal (test code = 92367-2) [facility] [id number] 22:49:02 Test Item Value Reference Range Interpretation Comments Fecal Leukocytes (test No fecal leukocytes No fecal leukocytes code = 16729-2) seen seen Lab Interpretation Normal (test code = 56941-4) [facility] [id number] 22:49:02 Test Item Value Reference Range Interpretation Comments Fecal Leukocytes (test No fecal leukocytes No fecal leukocytes code = 52107-3) seen seen Lab Interpretation Normal (test code = 40941-1) [facility] [id number] 22:49:02 Test Item Value Reference Range Interpretation Comments Fecal Leukocytes (test No fecal leukocytes No fecal leukocytes code = 15608-5) seen seen Lab Interpretation Normal (test code = 10619-5) [facility] ewldnsxeki7517-01-19 22:49:02 Test Item Value Reference Range Interpretation Comments Fecal Leukocytes (test No fecal leukocytes No fecal leukocytes code = 67959-6) seen seen Lab Interpretation Normal (test code = 39260-1) [facility]AL [id number] 22:49:02 Test Item Value Reference Range Interpretation Comments FECAL LEUKOCYTES No fecal leukocytes No fecal leukocytes (BEAKER) (test code = seen seen 992) POCT-GLUCOSE [id number] 16:36:44 Test Item Value Reference Range Interpretation Comments POC-GLUCOSE METER 204 mg/dL 70-110 H : TESTED A T [facility] 6720 (BEAKER) (test code = [facility], 1538) 661[address]: Pediatrics Physician/Techni dakota ID = [id number] for Co arsenio Susanna POCT-GLUCOSE [id number] 11:38:42 Test Item Value Reference Range Interpretation Comments POC-GLUCOSE METER 122 mg/dL 70-110 H : TESTED A T [facility] 6720 (BEAKER) (test code = [facility], 1538) 44930: Pediatrics Physician/Techni dakota ID = [id number] for Co ok, Susanna BASIC METABOLIC [id number] 08:51:41 Test Item Value Reference Range Interpretation [...] S NOT APPLICABLE FOR DIALYSIS PATIEN TS. Pediatrics Physician ID - DBPOCT-GLUCOSE [id number] 07:42:10 Test Item Value Reference Range Interpretation Comments POC-GLUCOSE METER 100 mg/dL 70-110 : TESTED A T [facility] 6720 (BEAKER) (test code = [facility], 1538) 96187: Pediatrics Physician/Techni dakota ID = [id number] for Co [place], Susanna [id number] 06:05:53 Test Item Value Reference Range Interpretation Comments MAGNESIUM (BEAKER) (test code = 1.5 mg/dL 1.6-2.6 L 627) Pediatrics Physician ID - DBPOCT-GLUCOSE [id number] 22:10:06 Test Item Value Reference Range Interpretation Comments POC-GLUCOSE METER 226 mg/dL 70-110 H : TESTED A T [facility]20 (BEAKER) (test code = [facility], [facility]) 73512: Pediatrics Physician/Techni dakota ID = [id number] for Ac farida Banks (contract), Maribel i POCT-GLUCOSE [id number] 17:25:35 Test Item Value Reference Range Interpretation Comments POC-GLUCOSE METER 167 mg/dL 70-110 H : TESTED A T [facility] 6720 (BEAKER) (test code = [facility], 1538) 12643: Pediatrics Physician/Techni dakota ID = [id number] for Co ok, Susanna POCT-GLUCOSE [id number] 11:53:31 Test Item Value Reference Range Interpretation Comments POC-GLUCOSE METER 84 mg/dL 70-110 : TESTED A T [facility] 6720 (BEAKER) (test code = [facility], 1538) 48898: Pediatrics Physician/Techni dakota ID = [id number] for Cook , Susanna POCT-GLUCOSE [id number] 07:47:58 Test Item Value Reference Range Interpretation Comments POC-GLUCOSE METER 91 mg/dL 70-110 : TESTED A T [facility] 6720 (BEAKER) (test code = [facility], 1538) 52302: Pediatrics Physician/Techni dakota ID = [id number] for Cook , Susanna [id number] 05:26:53 Test Item Value Reference Range Interpretation Comments FERRITIN (BEAKER) (test code = 1277.07 ng/mL 5.00-275.00 H 361) Pediatrics Physician ID - ALVINA [id number] 05:16:29 Test Item Value Reference Range Interpretation Comments MAGNESIUM (BEAKER) 1.5 mg/dL 1.6-2.6 L Specimen slightly (test code = 627) hemolyzed Pediatrics Physician ID - BSCOMPREHENSIVE METABOLIC [id number] 05:16:29 Test Item Value Reference Range Interpretation [...] S NOT APPLICABLE FOR DIALYSIS PATIEN TS. Pediatrics Physician ID - BSCBC W/PLT COUNT & AUTO [id number] 05:09:25 Test Item Value Reference Range Interpretation [...] PERCENT (BEAKER) (test code = 2801) POCT-GLUCOSE [id number] 23:08:33 Test Item Value Reference Range Interpretation Comments POC-GLUCOSE METER 180 mg/dL 70-110 H : TESTED A T [facility] (BEAKER) (test code = [place] [facility], 1538) 39534: Pediatrics Physician/Techni dakota ID = [id number] for CAROLINA LENZ Giardia [id number] 19:26:40 Test Item Value Reference Range Interpretation Comments STATUS: FINAL (QUEST) (test code = ) RESULT: Not Detected Reference Range :Not (QUEST) (test Detected code = 20151121) Source: (test STOOL code = 37160-5) Comment: See Below NOTE: Due to (test code = intermittent edding, ) one negativesam ple does not necess arily rule out the presenceof a pa rasitic infection. IDALIA (test Performing Lab *JESSENIA code = IDALIA) [facility], [address] [place], [place] [address] Angela Barcenas MD [facility] [id number] 19:26:40 Test Item Value Reference Range Interpretation Comments STATUS: FINAL (QUEST) (test code = ) RESULT: Not Detected Reference Range :Not (QUEST) (test Detected code = 20151121) Source: (test STOOL code = 60654-5) Comment: See Below NOTE: Due to (test code = intermittent edding, ) one negativesam ple does not necess arily rule out the presenceof a pa rasitic infection. IDALIA (test Performing Lab *JESSENIA code = IDALIA) [facility], [address] [place], [place] [address] Angela Barcenas MD [facility] [id number] 19:26:40 Test Item Value Reference Range Interpretation Comments STATUS: FINAL (QUEST) (test code = ) RESULT: Not Detected Reference Range :Not (QUEST) (test Detected code = 20151121) Source: (test STOOL code = 24455-6) Comment: See Below NOTE: Due to (test code = intermittent sh edding, ) one negativesam ple does not necess arily rule out the presenceof a pa rasitic infection. IDALIA (test Performing Lab *JESSENIA code = IDALIA) [facility], [address] [place] [address] Angela Barcenas MD [facility] [id number] 19:26:40 Test Item Value Reference Range Interpretation Comments STATUS: FINAL (QUEST) (test code = ) RESULT: Not Detected Reference Range :Not (QUEST) (test Detected code = 20151121) Source: (test STOOL code = 70991-4) Comment: See Below NOTE: Due to (test code = intermittent edding, ) one negativesam ple does not necess arily rule out the presenceof a pa rasitic infection. IDALIA (test Performing Lab *JESSENIA code = IDALIA) [facility], [address] [place] [address] Angela Barcenas MD [facility] [id number] 19:26:40 Test Item Value Reference Range Interpretation Comments STATUS: FINAL (QUEST) (test code = ) RESULT: Not Detected Reference Range :Not (QUEST) (test Detected code = 20151121) Source: (test STOOL code = 74947-8) Comment: See Below NOTE: Due to (test code = intermittent edding, ) one negativesam ple does not necess arily rule out the presenceof a pa rasitic infection. IDALIA (test Performing Lab *JESSENIA code = IDALIA) [facility], [address] [place] [address] Angela Barcenas MD [facility] [id number] 19:26:40 Test Item Value Reference Range Interpretation Comments STATUS: FINAL (QUEST) (test code = ) RESULT: Not Detected Reference Range :Not (QUEST) (test Detected code = 20151121) Source: (test STOOL code = 23671-1) Comment: See Below NOTE: Due to (test code = intermittent edding, ) one negativesam ple does not necess arily rule out the presenceof a pa rasitic infection. IDALIA (test Performing Lab *JESSENIA code = IDALIA) [facility], [address] [place], [place] [address] Angela Barcenas MD [facility] [id number] 19:26:40 Test Item Value Reference Range Interpretation Comments STATUS: FINAL (QUEST) (test code = 3510754) RESULT: Not Detected Reference Range :Not (QUEST) (test Detected code = 20151121) Source: (test STOOL code = 69928-0) Comment: See Below NOTE: Due to (test code = intermittent sh edding, ) one negativesam ple does not necess arily rule out the presenceof a pa rasitic infection. IDALIA (test Performing Lab *JESSENIA code = IDALIA) [facility], [address] [place], [place] [address] Angela Barcenas MD [facility] [id number] 19:26:40 Test Item Value Reference Range Interpretation Comments STATUS: FINAL (QUEST) (test code = ) RESULT: Not Detected Reference Range :Not (QUEST) (test Detected code = 20151121) Source: (test STOOL code = 95168-0) Comment: See Below NOTE: Due to (test code = intermittent sh edding, ) one negativesam ple does not necess arily rule out the presenceof a pa rasitic infection. IDALIA (test Performing Lab *JESSENIA code = IDALIA) [facility], [address] [place] [phone] Angela Barcenas MD [facility] [id number] 19:26:40 Test Item Value Reference Range Interpretation Comments STATUS: FINAL (QUEST) (test code = ) RESULT: Not Detected Reference Range :Not (QUEST) (test Detected code = 20151121) Source: (test STOOL code = 12646-3) Comment: See Below NOTE: Due to (test code = intermittent sh edding, ) one negativesam ple does not necess arily rule out the presenceof a pa rasitic infection. IDALIA (test Performing Lab *JESSENIA code = IDALIA) [facility] [place] [facility], [address] [place] [phone] Angela [facility]enas MD [facility] [id number] 19:26:40 Test Item Value Reference Range Interpretation Comments STATUS: FINAL (QUEST) (test code = 2451275) RESULT: Not Detected Reference Range :Not (QUEST) (test Detected code = 8881881) Source: (test STOOL code = 42857-2) Comment: See Below NOTE: Due to (test code = intermittent sh edding, ) one negativesam ple does not necess arily rule out the presenceof a pa rasitic infection. IDALIA (test Performing Lab *JESSENIA code = IDALIA) [facility], [address] [place] [address] Angela Barcenas MD [facility] [id number] 15:54:55 Test Item Value Reference Range Interpretation Comments POC-GLUCOSE METER 302 mg/dL 70-110 H : TESTED A T [facility] 6720 (BEAKER) (test code = DONNA [place] [facility], 1538) [address]: Pediatrics Physician/Techni dakota ID = [id number] for Je ssie, Kevin POCT-GLUCOSE [id number] 11:59:06 Test Item Value Reference Range Interpretation Comments POC-GLUCOSE METER 118 mg/dL 70-110 H : TESTED A T [facility] 6720 (BEAKER) (test code = DONNA [place] [facility], 153) [address]: Pediatrics Physician/Techni dakota ID = [id number] for Je ssie, Kevin Ova and Parasite [id number] 10:29:02See scanned [facility] Supvocrepjk5991-93-64 10:29:02See scanned report [facility] Lzdracmdfkw3972-12-16 10:29:02See scanned reportMen[facility] Ammbcqsujyo0078-06-62 10:29:02See scanned report[facility] Rdlagxofmeg7858-22-57 10:29:02See scanned report[facility] Wxozjnqfbrm6036-50-79 10:29:02See scanned report[facility] Eqgxqppcbov5698-68-96 10:29:02See scanned report [facility] Par[facility]ite Nzbtnlblqvw1041-72-64 10:29:02See scanned report[facility] Yoghkjixkus0505-21-16 10:29:02See scanned report[facility] Rbwibrvrdoc4979-49-62 10:29:02See scanned reportEden Medical CenterPOCT- GLUCOSE [id number] 08:15:03 Test Item Value Reference Range Interpretation Comments POC-GLUCOSE METER 153 mg/dL 70-110 H : TESTED A T [facility] 6720 (BEAKER) (test code = DONNA [place]LES [place], 1538) [address]: Pediatrics Physician/Techni dakota ID = [id number] for Kevin Smith [id number] 05:39:21 Test Item Value Reference Range Interpretation Comments FERRITIN (BEAKER) (test code = 2065.19 ng/mL 5.00-275.00 H 361) Pediatrics Physician ID - ALVINA MOperator ID - ALVINA [id number] 04:33:07 Test Item Value Reference Range Interpretation Comments MAGNESIUM (BEAKER) (test code = 1.7 mg/dL 1.6-2.6 627) Pediatrics Physician ID - ALVINA MCOMPREHENSIVE METABOLIC [id number] 04:33:06 Test Item Value Reference Range Interpretation [...] S NOT APPLICABLE FOR DIALYSIS PATIEN TS. Pediatrics Physician ID - ALVINA MCBC W/PLT COUNT & AUTO [id number] 04:05:50 Test Item Value Reference Range Interpretation [...] PERCENT (BEAKER) (test code = 2801) POCT-GLUCOSE [id number] 22:26:51 Test Item Value Reference Range Interpretation Comments POC-GLUCOSE METER 263 mg/dL 70-110 H : TESTED A T [facility] 6720 (BEAKER) (test code = [facility], 1538) 10076: Pediatrics Physician/Techni dakota ID = [id number] for Cherry Morrissey POCT-GLUCOSE [id number] 17:52:33 Test Item Value Reference Range Interpretation Comments POC-GLUCOSE METER 320 mg/dL 70-110 H : TESTED A T [facility] 6720 (BEAKER) (test code [facility], = 1538) [address]: Pediatrics Physician/Techni dakota ID = [id number] for SD GALLO [id number] 16:04:21 Test Item Value Reference Range Interpretation Comments MAGNESIUM (BEAKER) (test code = 1.6 mg/dL 1.6-2.6 627) Pediatrics Physician ID - BSPOCT-GLUCOSE [id number] 13:44:43 Test Item Value Reference Range Interpretation Comments POC-GLUCOSE METER 243 mg/dL 70-110 H : TESTED A T [facility] 6720 (BEAKER) (test code [facility], = 1538) 34272: Pediatrics Physician/Techni dakota ID = [id number] for SD GALLO ANTI-DNA [id number] 12:19:23 Test Item Value Reference Range Interpretation Comments ANTI-DNA TITER (BEAKER) (test code = :80 1553) DOUBLE-STRANDED DNA (DSDNA) [id number] 12:19:05 Test Item Value Reference Range Interpretation Comments ANTI-DNA DS (BEAKER) (test code = Positive Negative 1055) SARS-COV2/RT-PCR ([facility])2021-09-19 10:54:11 Test Item Value Reference Range Interpretation Comments SARS-COV2/RT-PCR (test Negative Not Detected, Negative, code = 2324665) See external report for linked test SARS-COV-2 PERFORMING LAB [facility] SHAUNA (test code = 9853610) Negative result for this test determines that [...] of the Act.Fact Sheet for Healthcare Prov iders:https://www.Get10/sites/default/files/product/documents/Fact_Sheet_HC _Zkuvqrxkj_Uvyy_CFMG-FuH-1.pdfFact Sheet for Healthcare Patients:https://www.Get10/sites/default/files/product/docume nts/Korz_Dogcf_Rozrsnwt_Bdym_QLJA-ZkE-4.pdfPerforming Laboratory:[facility], [place] [address]JXUR-LBAFBRZ METER 2021-09-19 08:21:15 Test Item Value Reference Range Interpretation Comments POC-GLUCOSE METER 228 mg/dL 70-110 H : TESTED A T [facility] 6720 (BEAKER) ([facility]) [address]: Pediatrics Physician/Techni dakota ID = [id number] for SD GALLO [id number] 08:08:54 Test Item Value Reference Range Interpretation Comments MAGNESIUM (BEAKER) (test code = 1.4 mg/dL 1.6-2.6 L 627) Pediatrics Physician ID - BRANDIN CCOMPREHENSIVE METABOLIC [id number] 08:08:53 Test Item Value Reference Range Interpretation [...] S NOT APPLICABLE FOR DIALYSIS PATIEN TS. Pediatrics Physician ID - BRANDIN [id number] 07:30:23 Test Item Value Reference Range Interpretation Comments FERRITIN (BEAKER) (test code = 2272.75 ng/mL 5.00-275.00 H 361) Pediatrics Physician ID - SHREE WOperator ID - SHREE WCBC W/PLT COUNT & AUTO [id number] 06:07:16 Test Item Value Reference Range Interpretation [...] PERCENT (BEAKER) (test code = 2801) POCT-GLUCOSE [id number] 21:42:25 Test Item Value Reference Range Interpretation Comments POC-GLUCOSE METER 218 mg/dL 70-110 H : TESTED A T [facility] 6720 (BEAKER) (test code = [facility], 1538) 41943: Pediatrics Physician/Techni dakota ID = [id number] for ABE TEJADA POCT-GLUCOSE [id number] 17:08:14 Test Item Value Reference Range Interpretation Comments POC-GLUCOSE METER 148 mg/dL 70-110 H : TESTED A T [facility] 6720 (BEAKER) (test code [facility], = 1538) 80314: Pediatrics Physician/Techni dakota ID = [id number] for SD GALLO MISCELLANEOUS LAB [id number] 14:26:25 Test Item Value Reference Range Interpretation Comments SCAN RESULT (test code = See scanned report [id number]) See scanned reportCMV PCR, [id number] 14:23:40 Test Item Value Reference Range Interpretation Comments CMV VIRAL LOAD - Negative or below See_Comment [Auto mated message] NEGATIVE (BEAKER) the linear range The sy stem which [...] its performance characteristics determined by the [facility] Pathol ogy Department, Section of [...] mg/dL 70-110 H : TESTED A T [facility] 6720 (GENEVA) (test code [facility], = 1538) 477[address]: Pediatrics Physician/Techni dakota ID = [id number] for SD GALLO MISCELLANEOUS LAB [id number] 09:55:02 Test Item Value Reference Range Interpretation Comments SCAN RESULT (test code = See scanned report [id number]) See scanned reportPOCT-GLUCOSE [id number] 09:36:32 Test Item Value Reference Range Interpretation Comments POC-GLUCOSE METER 99 mg/dL 70-110 : TESTED A T [facility] 6720 (BEAKER) (test code = [place], 1538) 75324: Pediatrics Physician/Techni dakota ID = [id number] for SD GALLO COMPREHENSIVE METABOLIC [id number] 07:28:53 Test Item Value Reference Range Interpretation [...] S NOT APPLICABLE FOR DIALYSIS PATIEN TS. Pediatrics Physician ID - [id number] 07:28:52 Test Item Value Reference Range Interpretation Comments MAGNESIUM (BEAKER) 1.3 mg/dL 1.6-2.6 L Specimen slightly (test code = 627) hemolyzed Pediatrics Physician ID - DBCBC W/PLT COUNT & AUTO [id number] 07:26:37 Test Item Value Reference Range Interpretation [...] PERCENT (BEAKER) (test code = 2801) POCT-GLUCOSE [id number] 22:29:02 Test Item Value Reference Range Interpretation Comments POC-GLUCOSE METER 207 mg/dL 70-110 H : TESTED A T [facility] 6720 (BEAKER) (test code = [facility], [facility]8) 48594: Pediatrics Physician/Techni dakota ID = [id number] for CAROLINA LENZ POCT-GLUCOSE [id number] 17:18:02 Test Item Value Reference Range Interpretation Comments POC-GLUCOSE METER 228 mg/dL 70-110 H : TESTED A T [facility] 6720 (BEAKER) (test code = [facility], [facility]) 44024: Pediatrics Physician/Techni dakota ID = [id number] for FA ITH, CASEY POCT-GLUCOSE [id number] 12:29:44 Test Item Value Reference Range Interpretation Comments POC-GLUCOSE METER 174 mg/dL 70-110 H : TESTED A T [facility] 6720 (BEAKER) (test code = [facility], 153) 11028: Pediatrics Physician/Techni dakota ID = [id number] for FA ITH, CASEY POCT-GLUCOSE [id number] 12:15:50 Test Item Value Reference Range Interpretation Comments POC-GLUCOSE METER 111 mg/dL 70-110 H : TESTED A T [facility] 6720 (BEAKER) (test code = [facility], 1538) 47599: Pediatrics Physician/Techni dakota ID = [id number] for CODY DISHA MASON GI Pathogen Profile by PCR -ID [id number] 08:09:12 Test Item Value Reference Range Interpretation Comments CAMPYLOBACTER (PCR) Not detected Not detected (test code = 27218-8) PLESIOMONAS SHIGELLOIDES Not detected Not detected (PCR) (test code = 09868-2) SALMONELLA (PCR) (test Not detected Not detected code = 20312-2) YERSINIA ENTEROCOLITICA Not detected Not detected (PCR) (test code = 21340-6) VIBRIO CHOLERAE (PCR) Not detected Not detected (test code = 09987-6) ENTEROAGGREGATIVE E. Not detected Not detected COLI (EAEC) BY PCR (test code = 47475-6) ENTEROPATHOGENIC E. COLI Not detected Not detected (EPEC) BY PCR (test code = 93742-0) ENTEROTOXIGENIC E. COLI Not detected Not detected (ETEC) LT/ST BY PCR (test code = 90740-9) SHIGA-LIKE Not detected Not detected TOXIN-PRODUCING E. COLI (STEC) STX1/STX2 (test code = 19969-6) E. COLI O157 (PCR) (test code = 41613-4) SHIGELLA/ENTEROINVASIVE Not detected Not detected E. COLI (EIEC) BY PCR (test code = 27428-0) CRYPTOSPORIDIUM (PCR) Not detected Not detected (test code = 49669-1) CYCLOSPORA CAYETANENSIS Not detected Not detected (PCR) (test code = 87516-5) ENTAMOEBA HISTOLYTICA Not detected Not detected (PCR) (test code = 11033-9) GIARDIA LAMBLIA (PCR) Not detected Not detected (test code = 29158-3) ADENOVIRUS F 40/41 (PCR) Not detected Not detected (test code = 70889-7) ASTROVIRUS (PCR) (test Not detected Not detected code = 15119-4) NOROVIRUS GI/GII (PCR) Not detected Not detected (test code = 80287-3) ROTAVIRUS A (PCR) (test Not detected Not detected code = 29564-7) SAPOVIRUS (I, II, IV, V) Not detected Not detected BY PCR (test code = 68320-9) VIBRIO Not detected Not detected (PARAHAEMOLYTICUS, VULNIFICUS) (test code = 39967-8) IDALIA (test code = IDALIA) Other viruses, parasites and bacteria not targeted by this PCR panel cannot be excluded; therefore clinical correlation and follow up of serology, culture results, and other molecular studies is required. The results are not intended to be used as the sole means for clinical diagnosis or patient management decisions. This sample was tested at the [facility]ostics [facility] using the [employer] Gastrointestinal Panel. It is FDA cleared and has been verified and approved by the [facility] for clinical use. This laboratory is CLIA-certified and [employer] [place] [employer] (CAP)-accredited to perform high complexity testing. [facility] Path[facility] Profile by PCR -ID [id number] 08:09:12 Test Item Value Reference Range Interpretation Comments CAMPYLOBACTER PCR (test Not detected Not detected code = 90233-7) PLESIOMONAS SHIGELLOIDES Not detected Not detected (PCR) (test code = 29322-4) SALMONELLA (PCR) (test Not detected Not detected code = 88340-6) YERSINIA ENTEROCOLITICA Not detected Not detected (PCR) (test code = 87844-8) VIBRIO CHOLERAE (PCR) Not detected Not detected (test code = 95660-1) ENTEROAGGREGATIVE E. Not detected Not detected COLI (EAEC) BY PCR (test code = 51270-4) ENTEROPATHOGENIC E. COLI Not detected Not detected (EPEC) BY PCR (test code = 85960-3) ENTEROTOXIGENIC E. COLI Not detected Not detected (ETEC) LT/ST BY PCR (test code = 30834-0) SHIGA-LIKE Not detected Not detected TOXIN-PRODUCING E. COLI (STEC) STX1/STX2 (test code = 39668-3) E. COLI O157 (PCR) (test code = 48924-2) SHIGELLA/ENTEROINVASIVE Not detected Not detected E. COLI (EIEC) BY PCR (test code = 54649-5) CRYPTOSPORIDIUM (PCR) Not detected Not detected (test code = 41193-6) CYCLOSPORA CAYETANENSIS Not detected Not detected (PCR) (test code = 83505-1) ENTAMOEBA HISTOLYTICA Not detected Not detected (PCR) (test code = 38973-4) GIARDIA LAMBLIA (PCR) Not detected Not detected (test code = 07905-9) ADENOVIRUS F 40/41 (PCR) Not detected Not detected (test code = 22208-0) ASTROVIRUS (PCR) (test Not detected Not detected code = 52870-2) NOROVIRUS GI/GII (PCR) Not detected Not detected (test code = 03241-6) ROTAVIRUS A (PCR) (test Not detected Not detected code = 35356-3) SAPOVIRUS (I, II, IV, V) Not detected Not detected BY PCR (test code = 32179-1) VIBRIO Not detected Not detected (PARAHAEMOLYTICUS, VULNIFICUS) (test code = 49396-9) IDALIA (test code = IDALIA) Other viruses, parasites and bacteria not targeted by this PCR panel cannot be excluded; therefore clinical correlation and follow up of serology, culture results, and other molecular studies is required. The results are not intended to be used as the sole means for clinical diagnosis or patient management decisions. This sample was tested at the [facility] Molecular Diagnostics Laboratory using the [employer] Gastrointestinal Panel. It is FDA cleared and has been verified and approved by the [facility] Diagnostics [facility] for clinical use. This laboratory is CLIA-certified and [employer] [place] [employer] (CAP)-accredited to perform high complexity testing. [facility] by PCR -ID [id number] 08:09:12 Test Item Value Reference Range Interpretation Comments CAMPYLOBACTER PCR (test Not detected Not detected code = 39308-2) PLESIOMONAS SHIGELLOIDES Not detected Not detected (PCR) (test code = 74408-0) SALMONELLA (PCR) (test Not detected Not detected code = 64552-4) YERSINIA ENTEROCOLITICA Not detected Not detected (PCR) (test code = 48789-7) VIBRIO CHOLERAE (PCR) Not detected Not detected (test code = 95122-7) ENTEROAGGREGATIVE E. Not detected Not detected COLI (EAEC) BY PCR (test code = 44873-8) ENTEROPATHOGENIC E. COLI Not detected Not detected (EPEC) BY PCR (test code = 65311-7) ENTEROTOXIGENIC E. COLI Not detected Not detected (ETEC) LT/ST BY PCR (test code = 76995-4) SHIGA-LIKE Not detected Not detected TOXIN-PRODUCING E. COLI (STEC) STX1/STX2 (test code = 47992-6) E. COLI O157 (PCR) (test code = 72836-6) SHIGELLA/ENTEROINVASIVE Not detected Not detected E. COLI (EIEC) BY PCR (test code = 34070-8) CRYPTOSPORIDIUM (PCR) Not detected Not detected (test code = 67827-3) CYCLOSPORA CAYETANENSIS Not detected Not detected (PCR) (test code = 74323-1) ENTAMOEBA HISTOLYTICA Not detected Not detected (PCR) (test code = 93645-2) GIARDIA LAMBLIA (PCR) Not detected Not detected (test code = 28877-4) ADENOVIRUS F 40/41 (PCR) Not detected Not detected (test code = 89086-8) ASTROVIRUS (PCR) (test Not detected Not detected code = 59183-1) NOROVIRUS GI/GII (PCR) Not detected Not detected (test code = 00214-0) ROTAVIRUS A (PCR) (test Not detected Not detected code = 98029-7) SAPOVIRUS (I, II, IV, V) Not detected Not detected BY PCR (test code = 69157-9) VIBRIO Not detected Not detected (PARAHAEMOLYTICUS, VULNIFICUS) (test code = 40297-3) IDALIA (test code = IDALIA) Other viruses, parasites and bacteria not targeted by this PCR panel cannot be excluded; therefore clinical correlation and follow up of serology, culture results, and other molecular studies is required. The results are not intended to be used as the sole means for clinical diagnosis or patient management decisions. This sample was tested at the [facility] Molecular Diagnostics Laboratory using the [employer] Gastrointestinal Panel. It is FDA cleared and has been verified and approved by the [facility] Diagnostics [facility] for clinical use. This laboratory is CLIA-certified and [employer] [place] [employer] (CAP)-accredited to perform high complexity testing. [facility] PATH[facility] PROFILE BY [id number] 08:09:12 Test Item Value Reference Range Interpretation [...] Not detected BY PCR (test code = 1454140) ENTEROPATHOGENIC E. COLI (EPEC) Not detected Not detected BY PCR (test code = 9055353) ENTEROTOXIGENIC E. COLI (ETEC) Not detected Not detected LT/ST BY PCR (test code = 3380370) SHIGA-LIKE TOXIN-PRODUCING E. Not detected Not detected COLI (STEC) STX1/STX2 (test code = 1303533) E. COLI O157 (PCR) (test code = 8629158) SHIGELLA/ENTEROINVASIVE E. COLI Not detected Not detected (EIEC) BY PCR (test code = 6555348) CRYPTOSPORIDIUM (PCR) (test code Not detected Not detected = 7011211) CYCLOSPORA CAYETANENSIS (PCR) Not detected Not detected (test code = 5667950) ENTAMOEBA HISTOLYTICA (PCR) Not detected Not detected (test code = 1275670) GIARDIA LAMBLIA (PCR) (test code Not detected Not detected = 8215710) ADENOVIRUS F 40/41 (PCR) (test Not detected Not detected code = 8018677) ASTROVIRUS (PCR) (test code = Not detected Not detected 20160122) NOROVIRUS GI/GII (PCR) (test Not detected Not detected code = 1323475) ROTAVIRUS A (PCR) (test code = Not detected Not detected 20160124) SAPOVIRUS (I, II, IV, V) BY PCR Not detected Not detected (test code = 2324915) VIBRIO (PARAHAEMOLYTICUS, Not detected Not detected VULNIFICUS) (test code = 6590150) Other viruses, parasites and bacteria not targeted by this PCR panel cannot be excluded; therefore clinical correlation and follow up of serology, culture results, and other molecular studies is required. The results are not intended to be used as the sole means for clinical diagnosis or patient management decisions. This sample was tested at the [facility] Diagnostics Laboratory using the [employer] Gastrointestinal Panel. It is FDA cleared and has been verified and approved by the [facility] Diagnostics Laboratory for clinical use. This laboratory is CLIA-certified and College of[employer] (CAP)-accredited to perform high complexity testing.POCT-GLUCOSE [id number] 08:04:19 Test Item Value Reference Range Interpretation Comments POC-GLUCOSE METER 141 mg/dL 70-110 H : TESTED A T [facility] 6720 (BEAKER) (test code = DONNA [place], 1538) 36171: Pediatrics Physician/Techni dakota ID = [id number] for CASEY KERNS [id number] 07:09:55 Test Item Value Reference Range Interpretation Comments MAGNESIUM (BEAKER) (test code = 1.6 mg/dL 1.6-2.6 627) Pediatrics Physician ID - RUBICOMPREHENSIVE METABOLIC [id number] 07:09:54 Test Item Value Reference Range Interpretation [...] S NOT APPLICABLE FOR DIALYSIS PATIEN TS. Pediatrics Physician ID - [id number] 06:53:54 Test Item Value Reference Range Interpretation Comments FERRITIN (BEAKER) (test code = 1616.89 ng/mL 5.00-275.00 H 361) Pediatrics Physician ID - SHREE WCBC W/PLT COUNT & AUTO [id number] 06:20:10 Test Item Value Reference Range Interpretation [...] PERCENT (BEAKER) (test code = 2801) POCT-GLUCOSE [id number] 22:18:47 Test Item Value Reference Range Interpretation Comments POC-GLUCOSE METER 255 mg/dL 70-110 H : TESTED A T [facility] 6720 (BEAKER) (test code = [facility], 1538) 40042: Pediatrics Physician/Techni dakota ID = [id number] for Cherry Morrissey POCT-GLUCOSE [id number] 17:41:27 Test Item Value Reference Range Interpretation Comments POC-GLUCOSE METER 160 mg/dL 70-110 H : TESTED A T [facility] 6720 (BEAKER) (test code = [facility], 1538) 02549: Pediatrics Physician/Techni dakota ID = [id number] for MASON LINK POCT-GLUCOSE [id number] 11:47:30 Test Item Value Reference Range Interpretation Comments POC-GLUCOSE METER 126 mg/dL 70-110 H : TESTED A T [facility] 6720 (BEAKER) (test code = [facility], 1538) 58575: Pediatrics Physician/Techni dakota ID = [id number] for MASON LINK [id number] 11:09:58 Test Item Value Reference Range Interpretation Comments FERRITIN (BEAKER) (test code = 1216.61 ng/mL 5.00-275.00 H 361) Pediatrics Physician ID - FATMATA WBLOOD [id number] 10:00:55 Test Item Value Reference Range Interpretation Comments CULTURE (AKER) (test No growth in 5 days code = 1095) The specimen volume collected for this blood culture was below the optimum (10 mL per bottle or 20 mL total). Use of lower volumes may adversely affect recovery and/or detection times of some organisms.CBC W/PLT COUNT & AUTO [id number] 07:57:54 Test Item Value Reference Range Interpretation [...] (BEAKER) (test code = 2801) COMPREHENSIVE METABOLIC [id number] 07:37:26 Test Item Value Reference Range Interpretation [...] S NOT APPLICABLE FOR DIALYSIS PATIEN TS. Pediatrics Physician ID - [id number] 07:37:26 Test Item Value Reference Range Interpretation Comments MAGNESIUM (BEAKER) (test code = 1.5 mg/dL 1.6-2.6 L 627) Pediatrics Physician ID - DBClostridium difficile GDH [id number] 23:10:55 Test Item Value Reference Range Interpretation Comments C. Difficle Toxin Negative Negative (test code = 1824646870) C. Difficile GDH Positive Negative A C. difficil e Antigen (test code = present but toxin 9745463194) not detected. Indicates colonization wi th non-toxigenic [...] of kit performance was done by the [facility] Microbiology Lab prior to clinical use. Lab Interpretation Abnormal (test code = 01971-1) [facility] CenterClostridium difficile [facility] [id number] 23:10:55 Test Item Value Reference Range Interpretation Comments C. Difficle Toxin Negative Negative (test code = 6216386382) C. Difficile GDH Positive Negative A C. difficil e Antigen (test code = present but toxin 4857159748) not detected. Indicates colonization wi th non-toxigenic [...] of kit performance was done by the [facility] Microbiology Lab prior to clinical use. Lab Interpretation Abnormal (test code = 50968-9) [facility]DH [id number] 23:10:55 Test Item Value Reference Range Interpretation Comments C. Difficle Toxin Negative Negative (test code = 4184173661) C. Difficile GDH Positive Negative A C. difficil e Antigen (test code = present but toxin [id number]) not detected. Indicates colonization wi th non-toxigenic [...] of kit performance was done by the [facility] Microbiology Lab prior to clinical use. Lab Interpretation Abnormal (test code = 07665-8) [facility]DH [id number] 23:10:55 Test Item Value Reference Range Interpretation Comments CDT TOXIN (test code Negative Negative = 1795930604) CDT GDH ANTIGEN Positive Negative A C. difficile present but (test code = toxin not detec hernandez. [id number]) Indicates colon ization with non-toxige luis antonio strain or level of tox in below detectable leve ls. No need for enteri c isolation. Ashlee tment is rarely needed ( only when strong clinical suspicion for Clostridium difficile infection) Testing performed by [employer] Rapid Cassette Assay. For GDH, published sensitivity of the assay is 98.7% compared to cytotoxicity testing. For Toxin AB, published sensitivity is 87.8% and specificity 99.4% compared to cytotoxicity testing.Verification of kit performance was done by the [facility] MicrobiologyLab prior to clinical use.POCT-GLUCOSE [id number] 21:40:07 Test Item Value Reference Range Interpretation Comments POC-GLUCOSE METER 144 mg/dL 70-110 H : TESTED A T [facility] 6720 (BEAKER) (test code = [facility], 153) 94993: Pediatrics Physician/Techni dakota ID = [id number] for ABE TEJADA POCT-GLUCOSE [id number] 19:13:38 Test Item Value Reference Range Interpretation Comments POC-GLUCOSE METER 71 mg/dL 70-110 : [facility] ([facility]ER[facility] (test code = [facility], 1538) 89012: Pediatrics Physician/Techni daokta ID = [id number] for MASON URIOSTEGUI POCT-GLUCOSE [id number] 17:28:46 Test Item Value Reference Range Interpretation Comments POC-GLUCOSE METER 156 mg/dL 70-110 H : [facility] (BEAKER) (test code = [facility], 153) 73302: Pediatrics Physician/Techni dakota ID = [id number] for MASON LINK [id number] 17:03:09 Test Item Value Reference Range Interpretation Comments MAGNESIUM (BEAKER) (test code = 1.3 mg/dL 1.6-2.6 L 627) Pediatrics Physician ID - ADMINBASIC METABOLIC [id number] 17:03:08 Test Item Value Reference Range Interpretation [...] S NOT APPLICABLE FOR DIALYSIS PATIEN TS. Pediatrics Physician ID - ADMINVenous doppler leg, [id number] 16:49:56Ejection FractionSLEH ECHO HEARTLAB MKCKESSON [facility] leg, [id number] 16:49:56Ejection FractionSLEH ECHO HEARTLAB MKCKESSON [facility] do[facility] leg, [id number] 16:49:56Ejection FractionSLEH ECHO HEARTLAB MKCKESSON [facility] California[facility] do[facility] leg, [id number] 16:49:56Ejection FractionSLEH ECHO HEARTLAB MKCKESSON [facility] California[facility] do[facility] leg, left 2021-09-15 16:49:56Ejection FractionSLEH ECHO HEARTLAB MKCKESSON [facility] CaliforniaVen[facility] doppler leg, [id number] 16:49:56Ejection FractionSLEH ECHO HEARTLAB MKCKESSON [facility] CaliforniaVenous doppler leg, [id number] 16:49:56Ejection FractionSLEH ECHO HEARTLAB MKCKESSON [facility] CaliforniaVenous doppler leg, [id number] 16:49:56Ejection FractionSLEH ECHO HEARTLAB MKCKESSON [facility] CaliforniaVen[facility] doppler leg, [id number] 16:49:56Ejection [facility]SLEH [facility]Ven[facility] do[facility] leg, left 2021-09-15 16:49:56Ejection FractionSLEH ECHO HEARTLAB [facility] ChapelBLOOD [id number] 12:01:39 Test Item Value Reference Range Interpretation Comments CULTURE (BEAKER) (test No growth in 5 days code = 1095) POCT-GLUCOSE [id number] 11:07:13 Test Item Value Reference Range Interpretation Comments POC-GLUCOSE METER 173 mg/dL 70-110 H : [facility] (BEAKER) (test code = DONNA WHITMAN, 1538) 17969: Pediatrics Physician/Techni dakota ID = [id number] for MASON LINK [id number] 08:10:09 Test Item Value Reference Range Interpretation Comments MAGNESIUM (BEAKER) (test code = 1.3 mg/dL 1.6-2.6 L 627) Pediatrics Physician ID - DBCOMPREHENSIVE METABOLIC [id number] 08:10:08 Test Item Value Reference Range Interpretation [...] S NOT APPLICABLE FOR DIALYSIS PATIEN TS. Pediatrics Physician ID - DBCBC W/PLT COUNT & AUTO [id number] 07:40:05 Test Item Value Reference Range Interpretation [...] H PERCENT (BEAKER) (test code = 2801) [id number] 06:53:41 Test Item Value Reference Range Interpretation Comments FERRITIN (BEAKER) (test code = 1099.45 ng/mL 5.00-275.00 H 361) Pediatrics Physician ID - SHREE WPOCT-GLUCOSE [id number] 21:23:35 Test Item Value Reference Range Interpretation Comments POC-GLUCOSE METER 196 mg/dL 70-110 H : TESTED A T [facility] 6720 (BEAKER) (test code = [facility], 1538) 85492: Pediatrics Physician/Techni dakota ID = [id number] for Mayte xiomaraCherry herbert POCT-GLUCOSE [id number] 18:12:17 Test Item Value Reference Range Interpretation Comments POC-GLUCOSE METER 240 mg/dL 70-110 H : TESTED A T [facility] 6720 (BEAKER) (test code [facility], = 1538) 33243: Pediatrics Physician/Techni dakota ID = [id number] for DOMENICO HUGO STRICKLANDSD [id number] 16:01:42 Test Item Value Reference Range Interpretation Comments FERRITIN (BEAKER) (test code = 1526.03 ng/mL 5.00-275.00 H 361) Pediatrics Physician ID - DBHEPATIC FUNCTION [id number] 14:17:51 Test Item Value Reference Range Interpretation [...] (test code = 45 U/L 6-55 347) Pediatrics Physician ID - BSPOCT-GLUCOSE [id number] 12:52:27 Test Item Value Reference Range Interpretation Comments POC-GLUCOSE METER 165 mg/dL 70-110 H : TESTED A T [facility] 6720 (BEAKER) ([facility], = 1538) 44914: Pediatrics Physician/Techni dakota ID = [id number] for SD GALLO BASIC METABOLIC [id number] 12:24:38 Test Item Value Reference Range Interpretation [...] S NOT APPLICABLE FOR DIALYSIS PATIEN TS. Pediatrics Physician ID - BSOperator ID - [id number] 12:24:33 Test Item Value Reference Range Interpretation Comments MAGNESIUM (BEAKER) (test code = 1.3 mg/dL 1.6-2.6 L 627) Pediatrics Physician ID - BSOperator ID - BSPOCT-GLUCOSE [id number] 08:43:31 Test Item Value Reference Range Interpretation Comments POC-GLUCOSE METER 83 mg/dL 70-110 : TESTED A T [facility] 6720 ([facility] (test code = [facility], 1538) 90708: Pediatrics Physician/Techni dakota ID = [id number] for SD GALLO POCT-GLUCOSE [id number] 22:05:41 Test Item Value Reference Range Interpretation Comments POC-GLUCOSE METER 190 mg/dL 70-110 H : TESTED A T [facility] 6720 ([facility] (test code = [facility], 1538) 58726: Pediatrics Physician/Techni dakota ID = [id number] for SA ABE RICH POCT-GLUCOSE [id number] 16:33:29 Test Item Value Reference Range Interpretation Comments POC-GLUCOSE METER 221 mg/dL 70-110 H : TESTED A T [facility] 6720 ([facility] (test code = [facility], 1538) 63039: Pediatrics Physician/Techni dakota ID = [id number] for Co [place], Susanna POCT-GLUCOSE [id number] 12:08:57 Test Item Value Reference Range Interpretation Comments POC-GLUCOSE METER 127 mg/dL 70-110 H : TESTED A T [facility] 6720 ([facility] (test code = [facility], 1538) 58597: Pediatrics Physician/Techni dakota ID = [id number] for [place], Susanna POCT-GLUCOSE [id number] 09:48:13 Test Item Value Reference Range Interpretation Comments POC-GLUCOSE METER 99 mg/dL 70-110 : TESTED A T [facility] 6720 ([facility] (test code = [facility], 1538) 21591: Pediatrics Physician/Techni dakota ID = [id number] for LALY LUCAS HEMOGLOBIN [id number] 09:05:11 Test Item Value Reference Range Interpretation Comments HEMOGLOBIN A1C 6.1 % See_Comment H [Automated m essage] ELECTROPHORESIS ([facility]) The system which (test code = 3811) generated this result transmitted ref erence range: <=5.6%. The reference range was not used to int erpret this result as normal/abnormal . "The A1c is measured using a [facility]-certified method. HbA1c value equal to or greater than 6.5% as thediagnosis cutoff for diabetes. An HbA1c value of 5.7- 6.4% indicates increased risk for diabetes (prediabetes)."Pediatrics Physician ID - ADM COMPREHENSIVE METABOLIC [id number] 06:09:47 Test Item Value Reference Range Interpretation [...] S NOT APPLICABLE FOR DIALYSIS PATIEN TS. Pediatrics Physician ID - [id number] 05:58:32 Test Item Value Reference Range Interpretation Comments MAGNESIUM (BEAKER) (test code = 1.3 mg/dL 1.6-2.6 L 627) Pediatrics Physician ID - [id number] 05:58:32 Test Item Value Reference Range Interpretation Comments PHOSPHORUS (BEAKER) (test code = 2.8 mg/dL 2.3-4.7 604) Pediatrics Physician ID - BSCBC W/PLT COUNT & AUTO [id number] 05:24:08 Test Item Value Reference Range Interpretation [...] PERCENT (BEAKER) (test code = 2801) POCT-GLUCOSE [id number] 21:20:25 Test Item Value Reference Range Interpretation Comments POC-GLUCOSE METER 186 mg/dL 70-110 H : TESTED A T [facility] 6720 (BEAKER) (test code = [facility] [place], 1538) 30591: Pediatrics Physician/Techni dakota ID = [id number] for JUAN JOSÉ GIRON [id number] 18:54:47 Test Item Value Reference Range Interpretation Comments FERRITIN (BEAKER) (test code = 1911.44 ng/mL 5.00-275.00 H 361) Pediatrics Physician ID - BSCOMPREHENSIVE METABOLIC [id number] 18:12:55 Test Item Value Reference Range Interpretation [...] S NOT APPLICABLE FOR DIALYSIS PATIEN TS. Pediatrics Physician ID - [id number] 18:12:55 Test Item Value Reference Range Interpretation Comments MAGNESIUM (BEAKER) (test code = 1.4 mg/dL 1.6-2.6 L 627) Pediatrics Physician ID - [id number] 18:12:55 Test Item Value Reference Range Interpretation Comments PHOSPHORUS (BEAKER) (test code = 3.0 mg/dL 2.3-4.7 604) Pediatrics Physician ID - BSCOMPLEMENT COMPONENT [id number] 18:09:15 Test Item Value Reference Range Interpretation Comments C4 COMPLEMENT (BEAKER) (test code = 4 mg/dL 15-57 L 394) Pediatrics Physician ID - BSCOMPLEMENT COMPONENT [id number] 18:09:15 Test Item Value Reference Range Interpretation Comments C3 COMPLEMENT (BEAKER) (test code = 31 mg/dL 82-193 L 393) Pediatrics Physician ID - BSCBC W/PLT COUNT & AUTO [id number] 17:46:55 Test Item Value Reference Range Interpretation [...] PERCENT (BEAKER) (test code = 2801) POCT-GLUCOSE [id number] 17:32:52 Test Item Value Reference Range Interpretation Comments POC-GLUCOSE METER 216 mg/dL 70-110 H : TESTED A T [facility] 6720 (BEAKER) (test code = [facility] CHAREL[facility] [place], 1538) 64587: Pediatrics Physician/Techni dakota ID = [id number] for Je ssie, Kevin RAD, SHOULDER, COMPLETE (MIN 2 VIEWS), [id number] 14:45: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 There is no fracture or dislocation. 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 There is no fracture or dislocation. 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 Subtle sclerosis and flattening of the left femoral head is suspected, possibly representing avascular necrosis given the clinical history. The right femoral head contour appears preserved. Signed: Darcie Williamson Verified Date/Time: 09/12/2021 14:29:16 Reading Location: [facility] Radiology Reading Room POCT-GLUCOSE [id number] 11:50:18 Test Item Value Reference Range Interpretation Comments POC-GLUCOSE METER 129 mg/dL 70-110 H : TESTED A T [facility] 6720 (BEAKER) (test code = [facility] [place], 1538) 05595: Pediatrics Physician/Techni dakota ID = [id number] for Kevin Smith RAD, HAND, 3 VIEWS, [id number] 11:47:00Reason for exam:->rheumatoid [facility] : 2000 [...] MDReport Verified Date/Time: 09/12/2021 11:47:37 Reading Location: [facility] Radiology Reading Room Electronically signed by: DARCIE WILLIAMSON M.D. on 11:47 AMRAD, HAND, 3 VIEWS, [id number] 11:47:00Reason for exam:- >rheumatoid arthritis [facility] : 2000 [...] MDReport Verified Date/Time: 09/12/2021 11:47:37 Reading Location: [facility] Radiology Reading Room Electronically signed by: DARCIE WILLIAMSON M.D. on 022 11:47 AMPOCT-GLUCOSE [id number] 10:21:03 Test Item Value Reference Range Interpretation Comments POC-GLUCOSE METER 88 mg/dL 70-110 : TESTED A T [facility] 6720 ([employer]) (test code = [facility], 153) 38935: Pediatrics Physician/Techni dakota ID = [id number] for Destiny ie, Kevin PROTEIN, RANDOM [id number] 06:25:49 Test Item Value Reference Range Interpretation Comments PROTEIN, URINE (BEAKER) (test code 177 mg/dL 0-14 H = 1569) Pediatrics Physician ID - DBCREATININE, RANDOM [id number] 06:25:48 Test Item Value Reference Range Interpretation Comments CREATININE URINE (BEAKER) (test 106.5 mg/dL code = 375) Reference Range: No NormalsOperator ID - DBPOCT-GLUCOSE [id number] 22:19:10 Test Item Value Reference Range Interpretation Comments POC-GLUCOSE METER 219 mg/dL 70-110 H : TESTED A T [facility] 6720 ([employer]) (test code = [facility], 153) 05525: Pediatrics Physician/Techni dakota ID = [id number] for Cherry Morrissey POCT-GLUCOSE [id number] 20:21:14 Test Item Value Reference Range Interpretation Comments POC-GLUCOSE METER 257 mg/dL 70-110 H : TESTED A T [facility] 6720 ([employer]this) (test code = [facility] [employer] [facility], 1538) 96958: Pediatrics Physician/Techni dakota ID = [id number] for Ng Deborah de la rosa CT, [id number] 16:58:00Unlisted Reason for Exam - Click Yes and Enter Reason Below->Noeval prior pancreatitis for further necrosis or abscess, worsening leukocytosis and tachycardiaIs this for enterography?->NoWill this procedure require oral contrast?->No [facility] : 2000 Sex: MFINAL REPORT [...] above including severe hepatic steatosis Signed: Felicity Novakeport Verified Date/Time: 09/11/2021 16:58:30 Electronically signed by: FELICITY NOVAK MD on 204:58 PM POCT-GLUCOSE [id number] 11:46:33 Test Item Value Reference Range Interpretation Comments POC-GLUCOSE METER 277 mg/dL 70-110 H : TESTED A T [facility] 6720 ([facility] (test code = [facility], 1538) 37402: Pediatrics Physician/Techni dakota ID = [id number] for JO MILLER COMPREHENSIVE METABOLIC [id number] 10:25:23 Test Item Value Reference Range Interpretation [...] S NOT APPLICABLE FOR DIALYSIS PATIEN TS. Pediatrics Physician ID - [id number] 10:13:10 Test Item Value Reference Range Interpretation Comments MAGNESIUM (BEAKER) (test code = 1.9 mg/dL 1.6-2.6 627) Pediatrics Physician ID - [id number] 10:13:10 Test Item Value Reference Range Interpretation Comments PHOSPHORUS (BEAKER) (test code = 2.5 mg/dL 2.3-4.7 604) Pediatrics Physician ID - DBCBC W/PLT COUNT & AUTO [id number] 10:02:45 Test Item Value Reference Range Interpretation [...] PERCENT (BEAKER) (test code = 2801) POCT-GLUCOSE [id number] 07:31:40 Test Item Value Reference Range Interpretation Comments POC-GLUCOSE METER 310 mg/dL 70-110 H : TESTED A T [facility] 6720 (BEAKER) (test code = [facility] [place], 1538) 12415: Pediatrics Physician/Techni dakota ID = [id number] for JO MILLER BLOOD [id number] 03:00:54 Test Item Value Reference Range Interpretation Comments CULTURE (BEAKER) (test No growth in 5 days code = 1095) BLOOD [id number] 03:00:53 Test Item Value Reference Range Interpretation Comments CULTURE (BEAKER) (test No growth in 5 days code = 1095) POCT-GLUCOSE [id number] 21:11:52 Test Item Value Reference Range Interpretation Comments POC-GLUCOSE METER 286 mg/dL 70-110 H : TESTED A T [facility] 6720 (BEAKER) (test code [facility], = 1538) 33963: Pediatrics Physician/Techni dakota ID = [id number] for BERNY SMYTH [id number] 12:52:50 Test Item Value Reference Range Interpretation Comments PROCALCITONIN (BEAKER) (test code 5.84 ng/mL <0.05 H = 3036) SEPSIS RISK (ng/mL)Low: 0.05-0.50Intermediate: 0.51-2.00High: >=2.01APTT 2021-09-10 12:05:26 Test Item Value Reference Range Interpretation Comments PARTIAL THROMBOPLASTIN TIME 27.5 seconds 22.5-36.0 (BEAKER) (test code = 760) PROTHROMBIN TIME/[id number] 12:04:41 Test Item Value Reference Range Interpretation Comments PROTIME (BEAKER) 16.4 seconds 11.9-14.2 H (test code = 759) INR (BEAKER) (test 1.34 See_Comment [Automat ed message] code = 370) The system [employer] generated this result transmitted ref erence range: <=5.90. The reference range was not used to int erpret this result as normal/abnormal . RECOMMENDED COUMADIN/WARFARIN INR THERAPY RANGESSTANDARD DOSE: 2.0 - 3.0 Includes: PROPHYLAXIS for venous thrombosis, systemic embolization; TREATMENT for venous thrombosis and/or pulmonary embolus.HIGH RISK: Target INR is 2.5-3.5 for patients with mechanical heart valves.LACTIC ACID, [id number] 11:42:21 Test Item Value Reference Range Interpretation Comments LACTATE BLOOD VENOUS 1.13 mmol/L 0.50-2.20 Specime n slightly (2) (BEAKER) (test hemolyzed code = 2872) Pediatrics Physician ID - DBRAD, CHEST, 1 VIEW, NON [id number] 09:41:00Reason for exam:- >eval for pnaShould this be performed at the bedside?->Yes [facility] : 2000 [...] MDReport Verified Date/Time: 09/10/2021 09:41:13 Reading Location: [address] Consult Reading Room (CELLAVISION MANUAL DIFF)2021-09-10 [...] CONCENTRATION Adequate (CELLAVISION)(BEAKER) (test code = 3438) Pediatrics Physician ID - [id number] ID - Rebecca Elizondo comments: Slide comments: CBC W/PLT COUNT & AUTO [id number] 07:30:14 Test Item Value Reference Range Interpretation [...] (BEAKER) (test code = 413) COMPREHENSIVE METABOLIC [id number] 05:40:15 Test Item Value Reference Range Interpretation [...] S NOT APPLICABLE FOR DIALYSIS PATIEN TS. Pediatrics Physician ID - PIJOVI [id number] 05:38:41 Test Item Value Reference Range Interpretation Comments MAGNESIUM (BEAKER) (test code = 1.5 mg/dL 1.6-2.6 L 627) Pediatrics Physician ID - MARIBEL [id number] 05:38:41 Test Item Value Reference Range Interpretation Comments PHOSPHORUS (BEAKER) (test code = 1.7 mg/dL 2.3-4.7 L 604) Pediatrics Physician ID - PIAYA LPOCT-GLUCOSE [id number] 21:08:40 Test Item Value Reference Range Interpretation Comments POC-GLUCOSE METER 113 mg/dL 70-110 H : TESTED A T [facility] 6720 (BEAKER) (test code = [facility], 1538) 80123: Pediatrics Physician/Techni dakota ID = [id number] for SOMMER LYNN POCT-GLUCOSE [id number] 16:29:13 Test Item Value Reference Range Interpretation Comments POC-GLUCOSE METER 123 mg/dL 70-110 H : TESTED A T [facility] 6720 (BEAKER) (test code = [facility], 1538) 30185: Pediatrics Physician/Techni dakota ID = [id number] for LIENCherelleMELANI RIOSLENE COMPREHENSIVE METABOLIC [id number] 15:30:31 Test Item Value Reference Range Interpretation [...] S NOT APPLICABLE FOR DIALYSIS PATIEN TS. Pediatrics Physician ID - ALVINA M2D Echo W/O Doppler(No Doppler)2021-09-09 14:32:05 Test Item Value Reference Range Interpretation Comments Ejection Fraction Est EF is 55-60% (test code = 2574) Radiology Study observation (narrative) (test code = 16400-0) PXN (test code = Sarah Travis PXN) - 09/09/2021 Transthoracic Echocardiography Report (TTE) Demographics Patient Name YAMILE, Date [facility]09[facility]20[id number] Gender Male Visit Number [id number] Race Unknown Room Number C622 Number Date of 2000 Referring Babita Cano Physician Age 21 year(s) [employer] Sandy Wilde, [facility] Interpreting Sarah Travis MD Physician Procedure [...] CO: 6.81 l/min LVOT CI: 3.35 l/min/m^2 [facility]2D Echo W/O Doppler(No Doppler)2021-09-09 14:32:05 Test Item Value Reference Range Interpretation Comments Ejection Fraction Est EF is 55-60% (test code = 2574) Radiology Study observation (narrative) (test code = 87443-0) PXN (test code = Sarah Travis PXN) - 09/09/2021 Transthoracic Echocardiography Report (TTE) Demographics Patient Name YAMILE, Date of Study 09/09/2021 [place] Gender Male Visit Number [id number] Race Unknown Room Number C622 Number Date of 2000 Referring Babita Cano Physician Age 21 year(s) [employer] Sandy Wilde, [facility] Interpreting Sarah Travis MD Physician Procedure [...] CO: 6.81 l/min LVOT CI: 3.35 l/min/m^2 [facility] Echo W/O Doppler(No Doppler)2021-09-09 14:32:05 Test Item Value Reference Range Interpretation Comments Ejection Fraction Est EF is 55-60% (test code = 2574) Radiology Study observation (narrative) (test code = 43208-7) PXN (test code = Sarah Travis PXN) - 09/09/2021 Transthoracic Echocardiography Report (TTE) Demographics Patient Name YAMILE, Date of Study 09/09/2021 [place] Gender Male Visit Number [id number] Race Unknown Room Number C622 Number Date of 2000 Referring Babita Cano Physician Age 21 year(s) [employer] Sandy Wilde, [facility] Interpreting Sarah Travis MD Physician Procedure [...] CO: 6.81 l/min LVOT CI: 3.35 l/min/m^2 [facility]2D Echo W/O Doppler(No Doppler)2021-09-09 14:32:05 Test Item Value Reference Range Interpretation Comments Ejection Fraction Est EF is 55-60% (test code = 2574) Radiology Study observation (narrative) (test code = 12122-4) JONNIE (test code = Sarah Travis PXN) - 09/09/2021 Transthoracic Echocardiography Report (TTE) Demographics Patient Name YAMILE, Date of Study 09/09/2021 [place] Gender Male Visit Number [id number] Race Unknown Room Number C622 Number Date of 2000 Referring Babita Cano Physician Age 21 year(s) [employer] Sandy Wilde, [facility] Interpreting Sarah Travis MD Physician Procedure [...] CO: 6.81 l/min LVOT CI: 3.35 l/min/m^2 [facility]2D Echo W/O Doppler(No Doppler)2021-09-09 14:32:05 Test Item Value Reference Range Interpretation Comments Ejection Fraction Est EF is 55-60% (test code = 2574) Radiology Study observation (narrative) (test code = 21216-1) PXN (test code = Sarah Travis PXN) - 09/09/2021 Transthoracic Echocardiography Report (TTE) Demographics Patient Name YAMILE, Date of Study 09/09/2021 DIXON Gender Male Visit Number [id number] Race Unknown Room Number C622 Number Date of 2000 Referring Babita Cano Physician Age 21 year(s) [employer] Sandy Wilde, [facility] Interpreting Sarah Travis MD Physician Procedure [...] 6.81 l/min LVOT CI: 3.35 l/min/m^2 [facility]2D Echo W/O Doppler(No Doppler)2021-09-09 14:32:05 Test Item Value Reference Range Interpretation Comments Ejection Fraction Est EF is 55-60% (test code = 2574) Radiology Study observation (narrative) (test code = 20961-8) PXN (test code = Sarah Travis PXN) - 09/09/2021 Transthoracic Echocardiography Report (TTE) Demographics Patient Name YAMILE, Date of Study 09/09/2021 DIXON Gender Male Visit Number [id number] Race Unknown Room Number C622 Number Date of 2000 Referring Babita Cano Physician Age 21 year(s) [employer] XAVIER Elizabeth Interpreting Sarah Travis MD Physician [...] CO: 6.81 l/min LVOT CI: 3.35 l/min/m^2 [facility]2D Echo W/O Doppler(No Doppler)2021-09-09 14:32:05 Test Item Value Reference Range Interpretation Comments Ejection Fraction Est EF is 55-60% (test code = 2574) Radiology Study observation (narrative) (test code = 37421-8) JONNIE (test code = Sarah Travis PXN) MD - 09/09/2021 Transthoracic Echocardiography Report (TTE) Demographics Patient Name YAMILE, Date of Study 09/09/2021 VANGIE Gender Male Visit Number [id number] Race Unknown Room Number C622 Number Date of 2000 Referring Babita Cano Physician Age 21 year(s) [employer] Sandy Wilde, [facility] Interpreting Sarah Travis MD Physician Procedure [...] CO: 6.81 l/min LVOT CI: 3.35 l/min/m^2 [facility]2D Echo W/O Doppler(No Doppler)2021-09-09 14:32:05 Test Item Value Reference Range Interpretation Comments Ejection Fraction Est EF is 55-60% (test code = 2574) Radiology Study observation (narrative) (test code = 86041-9) PXN (test code = Sarah Travis PXN) - 09/09/2021 Transthoracic Echocardiography Report (TTE) Demographics Patient Name YAMILE, Date of Study 09/09/2021 VANGIE Gender Male Visit Number [id number] Race Unknown Room Number C622 Number Date of 2000 Referring Babita Cano Physician Age 21 year(s) [employer] Sandy Wilde, [facility] Interpreting Sarah Travis MD Physician Procedure [...] CO: 6.81 l/min LVOT CI: 3.35 l/min/m^2 [facility]2D Echo W/O Doppler(No Doppler)2021-09-09 14:32:05 Test Item Value Reference Range Interpretation Comments Ejection Fraction Est EF is 55-60% (test code = 2574) Radiology Study observation (narrative) (test code = 50899-2) PXN (test code = Sarah Travis, JONNIE) - 09/09/2021 Transthoracic Echocardiography Report (TTE) Demographics Patient Name YAMILE, Date of Study 09/09/2021 DIXON Gender Male Visit Number [id number] Race Unknown Room Number C622 Number Date of 2000 Referring Babita Cano Physician Age 21 year(s) [employer] Sandy Wilde, [facility] Interpreting Sarah Travis MD Physician Procedure [...] CO: 6.81 l/min LVOT CI: 3.35 l/min/m^2 [facility]2D Echo W/O Doppler(No Doppler)2021-09-09 14:32:05 Test Item Value Reference Range Interpretation Comments Ejection Fraction Est EF is 55-60% (test code = 2574) Radiology Study observation (narrative) (test code = 95505-0) PXN (test code = Sarah Travis PXN) - 09/09/2021 Transthoracic Echocardiography Report (TTE) Demographics Patient Name YAMILE, Date of Study 09/09/2021 VANGIE Gender Male Visit Number [id number] Race Unknown Room Number C622 Number Date of 2000 Referring Babita Cano Physician Age 21 year(s) [employer] Sandy Wilde, [facility] Interpreting Sarah Travis MD Physician Procedure [...] CO: 6.81 l/min LVOT CI: 3.35 l/min/m^2 [facility] [id number] 11:38:39 Test Item Value Reference Range Interpretation Comments POC-GLUCOSE METER 137 mg/dL 70-110 H : TESTED A T [facility] 6720 (BEAKER) (test code = [facility], 1538) 84019: Pediatrics Physician/Techni dakota ID = [id number] for JO MILLER POCT-GLUCOSE [id number] 06:55:56 Test Item Value Reference Range Interpretation Comments POC-GLUCOSE METER 151 mg/dL 70-110 H : TESTED A T [facility] 6720 (BEAKER) (test code = [facility], 1538) 57533: Pediatrics Physician/Techni dakota ID = [id number] for CODY MORENO, VALSA POCT-GLUCOSE [id number] 21:19:46 Test Item Value Reference Range Interpretation Comments POC-GLUCOSE METER 174 mg/dL 70-110 H : TESTED A T [facility] 6720 (BEAKER) (test code = [facility], 1538) 85639: Pediatrics Physician/Techni dakota ID = [id number] for MA MALAWIAN, VALSA POCT-GLUCOSE [id number] 19:52:47 Test Item Value Reference Range Interpretation Comments POC-GLUCOSE METER 173 mg/dL 70-110 H : TESTED A T [facility] 6720 (BEAKER) (test code = [facility], 1538) 34847: Pediatrics Physician/Techni dakota ID = [id number] for JENNIFER ARCINIEGA MRSA [id number] 15:07:47 Test Item Value Reference Range Interpretation Comments Result (test code = 6463-4) No [facility] [id number] 15:07:47 Test Item Value Reference Range Interpretation Comments Result (test code = 6463-4) No MRSA isolated [facility] [id number] 15:07:47 Test Item Value Reference Range Interpretation Comments Result (test code = 6463-4) No MRSA isolated [facility] [id number] 15:07:47 Test Item Value Reference Range Interpretation Comments Result (test code = 6463-4) No MRSA isolated [facility] [id number] 15:07:47 Test Item Value Reference Range Interpretation Comments Result (test code = 6463-4) No MRSA isolated [facility] [id number] 15:07:47 Test Item Value Reference Range Interpretation Comments Result (test code = 6463-4) No MRSA isolated [facility] [id number] 15:07:47 Test Item Value Reference Range Interpretation Comments Result (test code = 6463-4) No MRSA isolated [facility] [id number] 15:07:47 Test Item Value Reference Range Interpretation Comments Result (test code = 6463-4) No MRSA isolated [facility] [id number] 15:07:47 Test Item Value Reference Range Interpretation Comments Result (test code = 6463-4) No MRSA isolated [facility] [id number] 15:07:47 Test Item Value Reference Range Interpretation Comments Result (test code = 6463-4) No MRSA isolated [facility] [id number] 15:07:47 Test Item Value Reference Range Interpretation Comments CULTURE (BEAKER) (test code No MRSA isolated = 1095) POCT-GLUCOSE [id number] 11:36:26 Test Item Value Reference Range Interpretation Comments POC-GLUCOSE METER 268 mg/dL 70-110 H : TESTED A T [facility] 6720 (Stalkthis) (test code = [facility], 1538) 37982: Pediatrics Physician/Techni dakota ID = [id number] for FRANC STEINCole MILES JENNIFER POCT-GLUCOSE [id number] 09:21:21 Test Item Value Reference Range Interpretation Comments POC-GLUCOSE METER 283 mg/dL 70-110 H : TESTED A T [facility] 6720 (Stalkthis) (test code = [facility], 1538) 30575: Pediatrics Physician/Techni dakota ID = [id number] for AL JENNIFER ANDERSON ANTI-MITOCHONDRIAL AB, REFLEX TO [id number] 07:58:16 Test Item Value Reference Range Interpretation Comments SCAN RESULT (test code = 3408758) POCT-GLUCOSE [id number] 05:15:53 Test Item Value Reference Range Interpretation Comments POC-GLUCOSE METER 266 mg/dL 70-110 H : TESTED A T [facility] 6720 (BEAKER) (test code = [facility], 1538) 73152: Pediatrics Physician/Techni dakota ID = [id number] for KAVITHA ESCOBAR COMPREHENSIVE METABOLIC [id number] 04:59:08 Test Item Value Reference Range Interpretation [...] S NOT APPLICABLE FOR DIALYSIS PATIEN TS. Pediatrics Physician ID - ALVINA [id number] 04:55:48 Test Item Value Reference Range Interpretation Comments MAGNESIUM (BEAKER) (test code = 1.7 mg/dL 1.6-2.6 627) Pediatrics Physician ID - ALVINA [id number] 04:55:48 Test Item Value Reference Range Interpretation Comments PHOSPHORUS (BEAKER) (test code = 1.6 mg/dL 2.3-4.7 L 604) Pediatrics Physician ID - ALVINA MCBC W/PLT COUNT & AUTO [id number] 04:52:53 Test Item Value Reference Range Interpretation [...] PERCENT (BEAKER) (test code = 2801) POCT-GLUCOSE [id number] 23:21:41 Test Item Value Reference Range Interpretation Comments POC-GLUCOSE METER 268 mg/dL 70-110 H : TESTED A T [facility] 6720 (BEAKER) (test code = [facility], 1538) 58627: Pediatrics Physician/Techni dakota ID = [id number] for KAVITHA ESCOBAR POCT-GLUCOSE [id number] 18:55:01 Test Item Value Reference Range Interpretation Comments POC-GLUCOSE METER 240 mg/dL 70-110 H : TESTED A T [facility] 6720 (BEAKER) (test code = [facility], 1538) 06030: Pediatrics Physician/Techni dakota ID = [id number] for Isiah Porter PERIPHERAL BLOOD SMEAR - PATHOLOGIST [id number] 16:19:01 Test Item Value Reference Range Interpretation Comments RBC MORPHOLOGY See comment Microcytic, (BEAKER) (test hypochromic a nemia code = 8146) with moderate anisocytosis an d mild poikilocytosis, including occasional elliptocytes an d rare dacrocytes . Only rare schistocytes present. Increa sed polychromasia. WBC MORPHOLOGY See comment Increased. (BEAKER) (test Predominately code = 2580) comprised by granulocytes wi th mild left shift . No overt blasts identified. Lymphocytes wit h reactive forms present. PLT MORPHOLOGY No Clumping (BEAKER) (test code = 2848) PLT MORPHOLOGY No Satellitosis (BEAKER) (test code = 840707) PLT MORPHOLOGY See comment Decreased in number (BEAKER) (test with normal code = 541294) morphology. R are to Occasional larg e forms. [facility]-PATHOLOGIST- Yvan Campoverde MD 6112 (BEAKER) (electronic (test code = signature) 5077) Urinalysis w/Microscopic + Reflex to [id number] 14:42:51 Test Item Value Reference Range Interpretation Comments Color, UA (test code Yellow = 5778-6) Clarity, UA (test Clear code = 5767-9) Specific [place], UA 1.025 1.001-1.035 (test code = 5811-5) pH, UA (test code = 6.0 5.0-8.0 5803-2) Protein, UA (test 100 mg/dL Negative A code = 42269-9) Glucose, UA (test 70 mg/dL Negative A code = 365) Ketones, UA (test 40 mg/dL Negative A code = 2514-8) Bilirubin, UA (test Negative Negative code = 10201-0) Blood, UA (test code Large Negative A = 19323-6) Nitrite, UA (test Negative Negative code = 5802-4) Leukocytes, UA (test Negative Negative code = 5799-2) Urobilinogen, UA 0.2 mg/dL 0.2-1.0 (test code = 22338-3) RBC, UA (test code = 30 See_Comment [Autom ated 85274-5) message] The system which generated this result [...] Bacteria, UA (test None Seen code = 78525-2) Mucus (test code = Few 2947-9) Hyaline Casts, UA 1 See_Comment [Automate d (test code = 88140-5) messag e] The system which generated this [...] Crystals, Urine (test None Seen code = 90739-6) Specimen Source (test code = 2795) IDALIA (test code = IDALIA) Pediatrics Physician ID - [auto]Pediatrics Physician ID - tech Lab Interpretation Abnormal (test code = 91995-0) [facility] Culture 2021-09-07 14:42:51 Test Item Value Reference Range Interpretation Comments Color, UA (test code Yellow = 5778-6) Clarity, UA (test Clear code = 5767-9) Specific [place], UA 1.025 1.001-1.035 (test code = 5811-5) pH, UA (test code = 6.0 5.0-8.0 5803-2) Protein, UA (test 100 mg/dL Negative A code = 75763-0) Glucose, UA (test 70 mg/dL Negative A code = 365) Ketones, UA (test 40 mg/dL Negative A code = 2514-8) Bilirubin, UA (test Negative Negative code = 43209-5) Blood, UA (test code Large Negative A = 33913-9) Nitrite, UA (test Negative Negative code = 5802-4) Leukocytes, UA (test Negative Negative code = 5799-2) Urobilinogen, UA 0.2 mg/dL 0.2-1.0 (test code = 54668-5) RBC, UA (test code = 30 See_Comment [Autom ated 85349-7) message] The system which generated this result [...] Bacteria, UA (test None Seen code = 15191-9) Mucus (test code = Few 8247-9) Hyaline Casts, UA 1 See_Comment [Automate d (test code = 67238-1) messag e] The system which generated this [...] Crystals, Urine (test None Seen code = 02101-2) Specimen Source (test code = 2795) IDALIA (test code = IDALIA) Pediatrics Physician ID - [auto]Pediatrics Physician ID - tech Lab Interpretation Abnormal (test code = 29203-7) [facility] Reflex [facility] Culture 2021-09-07 14:42:51 Test Item Value Reference Range Interpretation Comments Color, UA (test code Yellow = 5778-6) Clarity, UA (test Clear code = 5767-9) Specific [place], UA 1.025 1.001-1.035 (test code = 5811-5) pH, UA (test code = 6.0 5.0-8.0 5803-2) Protein, UA (test 100 mg/dL Negative A code = 18185-6) Glucose, UA (test 70 mg/dL Negative A code = 365) Ketones, UA (test 40 mg/dL Negative A code = 2514-8) Bilirubin, UA (test Negative Negative code = 40156-9) Blood, UA (test code Large Negative A = 31602-8) Nitrite, UA (test Negative Negative code = 5802-4) Leukocytes, UA (test Negative Negative code = 5799-2) Urobilinogen, UA 0.2 mg/dL 0.2-1.0 (test code = 91476-1) RBC, UA (test code = 30 See_Comment [Autom ated 97163-3) message] The system which generated this result [...] Bacteria, UA (test None Seen code = 53461-2) Mucus (test code = Few 8247-9) Hyaline Casts, UA 1 See_Comment [Automate d (test code = 70570-9) messag e] The system which generated this [...] Crystals, Urine (test None Seen code = 06328-1) Specimen Source (test code = 2795) IDALIA (test code = IDALIA) Pediatrics Physician ID - [auto]Pediatrics Physician ID - tech Lab Interpretation Abnormal (test code = 26048-1) [facility] Reflex to Culture 2021-09-07 14:42:51 Test Item Value Reference Range Interpretation Comments Color, UA (test code Yellow = 5778-6) Clarity, UA (test Clear code = 5767-9) Specific [place], UA 1.025 1.001-1.035 (test code = 5811-5) pH, UA (test code = 6.0 5.0-8.0 5803-2) Protein, UA (test 100 mg/dL Negative A code = 58694-2) Glucose, UA (test 70 mg/dL Negative A code = 365) Ketones, UA (test 40 mg/dL Negative A code = 2514-8) Bilirubin, UA (test Negative Negative code = 62700-2) Blood, UA (test code Large Negative A = 72251-4) Nitrite, UA (test Negative Negative code = 5802-4) Leukocytes, UA (test Negative Negative code = 5799-2) Urobilinogen, UA 0.2 mg/dL 0.2-1.0 (test code = 17149-1) RBC, UA (test code = 30 See_Comment [Autom ated 38596-1) message] The system which generated this result [...] Bacteria, UA (test None Seen code = 54956-7) Mucus (test code = Few 8247-9) Hyaline Casts, UA 1 See_Comment [Automate d (test code = 23688-3) messag e] The system which generated this [...] Crystals, Urine (test None Seen code = 00080-2) Specimen Source (test code = 2795) IDALIA (test code = IDALIA) Pediatrics Physician ID - [auto]Pediatrics Physician ID - tech Lab Interpretation Abnormal (test code = 30251-7) [facility] Reflex to Culture 2021-09-07 14:42:51 Test Item Value Reference Range Interpretation Comments Color, UA (test code Yellow = 5778-6) Clarity, UA (test Clear code = 5767-9) Specific [place], UA 1.025 1.001-1.035 (test code = 5811-5) pH, UA (test code = 6.0 5.0-8.0 5803-2) Protein, UA (test 100 mg/dL Negative A code = 70633-5) Glucose, UA (test 70 mg/dL Negative A code = 365) Ketones, UA (test 40 mg/dL Negative A code = 2514-8) Bilirubin, UA (test Negative Negative code = 19365-6) Blood, UA (test code Large Negative A = 79827-4) Nitrite, UA (test Negative Negative code = 5802-4) Leukocytes, UA (test Negative Negative code = 5799-2) Urobilinogen, UA 0.2 mg/dL 0.2-1.0 (test code = 34309-5) RBC, UA (test code = 30 See_Comment [Autom ated 02868-0) message] The system which generated this result [...] Bacteria, UA (test None Seen code = 93158-4) Mucus (test code = Few 8247-9) Hyaline Casts, UA 1 See_Comment [Automate d (test code = 87589-3) messag e] The system which generated this result transmit hernandez reference range : /LPF. The reference range was not used to interpret this result as normal/abnormal . Casts (test code = 3 See_Comment [Automat ed 5442-6) message] The system which generated this result transmit hernandez reference range : /LPF. The reference range was not used to interpret this result as normal/abnormal . Crystals, Urine (test None Seen code = 91755-8) Specimen Source (test code = 2795) IDALIA (test code = IDALIA) Pediatrics Physician ID - [auto]Pediatrics Physician ID - tech Lab Interpretation Abnormal (test code = 43344-9) [facility] Reflex to Culture 2021-09-07 14:42:51 Test Item Value Reference Range Interpretation Comments Color, UA (test code Yellow = 5778-6) Clarity, UA (test Clear code = 5767-9) Specific [place], UA 1.025 1.001-1.035 (test code = 5811-5) pH, UA (test code = 6.0 5.0-8.0 5803-2) Protein, UA (test 100 mg/dL Negative A code = 24705-0) Glucose, UA (test 70 mg/dL Negative A code = 365) Ketones, UA (test 40 mg/dL Negative A code = 2514-8) Bilirubin, UA (test Negative Negative code = 88598-7) Blood, UA (test code Large Negative A = 22034-1) Nitrite, UA (test Negative Negative code = 5802-4) Leukocytes, UA (test Negative Negative code = 5799-2) Urobilinogen, UA 0.2 mg/dL 0.2-1.0 (test code = 10113-2) RBC, UA (test code = 30 See_Comment [Autom ated 53801-4) message] The system which generated this result [...] Bacteria, UA (test None Seen code = 39541-6) Mucus (test code = Few 8247-9) Hyaline Casts, UA 1 See_Comment [Automate d (test code = 76442-2) messag e] The system which generated this [...] Crystals, Urine (test None Seen code = 96308-6) Specimen Source (test code = 2795) IDALIA (test code = IDALIA) Pediatrics Physician ID - [auto]Pediatrics Physician ID - tech Lab Interpretation Abnormal (test code = 42027-6) [facility] Reflex [facility] Culture 2021-09-07 14:42:51 Test Item Value Reference Range Interpretation Comments Color, UA (test code Yellow = 5778-6) Clarity, UA (test Clear code = 5767-9) Specific [place], UA 1.025 1.001-1.035 (test code = 5811-5) pH, UA (test code = 6.0 5.0-8.0 5803-2) Protein, UA (test 100 mg/dL Negative A code = 88805-6) Glucose, UA (test 70 mg/dL Negative A code = 365) Ketones, UA (test 40 mg/dL Negative A code = 2514-8) Bilirubin, UA (test Negative Negative code = 24097-1) Blood, UA (test code Large Negative A = 39418-9) Nitrite, UA (test Negative Negative code = 5802-4) Leukocytes, UA (test Negative Negative code = 5799-2) Urobilinogen, UA 0.2 mg/dL 0.2-1.0 (test code = 88832-7) RBC, UA (test code = 30 See_Comment [Autom ated 53143-2) message] The system which generated this result [...] Bacteria, UA (test None Seen code = 58867-3) Mucus (test code = Few 8247-9) Hyaline Casts, UA 1 See_Comment [Automate d (test code = 51793-4) messag e] The system which generated this [...] Crystals, Urine (test None Seen code = 80424-1) Specimen Source (test code = 2795) IDALIA (test code = IDALIA) Pediatrics Physician ID - [auto]Pediatrics Physician ID - tech Lab Interpretation Abnormal (test code = 32903-3) [facility] Reflex [facility] Culture 2021-09-07 14:42:51 Test Item Value Reference Range Interpretation Comments Color, UA (test code Yellow = 5778-6) Clarity, UA (test Clear code = 5767-9) Specific [place], UA 1.025 1.001-1.035 (test code = 5811-5) pH, UA (test code = 6.0 5.0-8.0 5803-2) Protein, UA (test 100 mg/dL Negative A code = 80345-0) Glucose, UA (test 70 mg/dL Negative A code = 365) Ketones, UA (test 40 mg/dL Negative A code = 2514-8) Bilirubin, UA (test Negative Negative code = 54144-5) Blood, UA (test code Large Negative A = 23052-3) Nitrite, UA (test Negative Negative code = 5802-4) Leukocytes, UA (test Negative Negative code = 5799-2) Urobilinogen, UA 0.2 mg/dL 0.2-1.0 (test code = 81223-9) RBC, UA (test code = 30 See_Comment [Autom ated 77344-9) message] The system which generated this result [...] Bacteria, UA (test None Seen code = 65866-9) Mucus (test code = Few 8247-9) Hyaline Casts, UA 1 See_Comment [Automate d (test code = 01483-4) messag e] The system which generated this [...] Crystals, Urine (test None Seen code = 82676-9) Specimen Source (test code = 2795) IDALIA (test code = IDALIA) Pediatrics Physician ID - [auto]Pediatrics Physician ID - tech Lab Interpretation Abnormal (test code = 30757-0) [facility] Reflex to Culture 2021-09-07 14:42:51 Test Item Value Reference Range Interpretation Comments Color, UA (test code Yellow = 5778-6) Clarity, UA (test Clear code = 5767-9) Specific [place], UA 1.025 1.001-1.035 (test code = 5811-5) pH, UA (test code = 6.0 5.0-8.0 5803-2) Protein, UA (test 100 mg/dL Negative A code = 89895-9) Glucose, UA (test 70 mg/dL Negative A code = 365) Ketones, UA (test 40 mg/dL Negative A code = 2514-8) Bilirubin, UA (test Negative Negative code = 64374-4) Blood, UA (test code Large Negative A = 98925-4) Nitrite, UA (test Negative Negative code = 5802-4) Leukocytes, UA (test Negative Negative code = 5799-2) Urobilinogen, UA 0.2 mg/dL 0.2-1.0 (test code = 46588-3) RBC, UA (test code = 30 See_Comment [Autom ated 16070-5) message] The system which generated this result [...] Bacteria, UA (test None Seen code = 41226-4) Mucus (test code = Few 8247-9) Hyaline Casts, UA 1 See_Comment [Automate d (test code = 15093-7) messag e] The system which generated this [...] Crystals, Urine (test None Seen code = 12765-4) Specimen Source (test code = 2795) IDALIA (test code = IDALIA) Pediatrics Physician ID - [auto]Pediatrics Physician ID - tech Lab Interpretation Abnormal (test code = 22118-0) [facility] Reflex [facility] Culture 2021-09-07 14:42:51 Test Item Value Reference Range Interpretation Comments Color, UA (test code Yellow = 5778-6) Clarity, UA (test Clear code = 5767-9) Specific [place], UA 1.025 1.001-1.035 (test code = 5811-5) pH, UA (test code = 6.0 5.0-8.0 5803-2) Protein, UA (test 100 mg/dL Negative A code = 95087-6) Glucose, UA (test 70 mg/dL Negative A code = 365) Ketones, UA (test 40 mg/dL Negative A code = 2514-8) Bilirubin, UA (test Negative Negative code = 07509-5) Blood, UA (test code Large Negative A = 15281-1) Nitrite, UA (test Negative Negative code = 5802-4) Leukocytes, UA (test Negative Negative code = 5799-2) Urobilinogen, UA 0.2 mg/dL 0.2-1.0 (test code = 81443-2) RBC, UA (test code = 30 See_Comment [Autom ated 86157-3) message] The system which generated this result [...] Bacteria, UA (test None Seen code = 34775-1) Mucus (test code = Few 8247-9) Hyaline Casts, UA 1 See_Comment [Automate d (test code = 98674-3) messag e] The system which generated this [...] Crystals, Urine (test None Seen code = 60206-3) Specimen Source (test code = 2795) IDALIA (test code = IDALIA) Pediatrics Physician ID - [auto]Pediatrics Physician ID - tech Lab Interpretation Abnormal (test code = 91037-2) [facility] [id number] 14:42:51 Test Item Value Reference Range Interpretation [...] = 1521) SOURCE(BEAKER) (test code = 2795) Pediatrics Physician ID - [auto]Pediatrics Physician ID - aorkMQUSXNNZJZXCS6001-06-37 13:45:54 Test Item Value Reference Range Interpretation Comments PROCALCITONIN (BEAKER) (test code 41.89 ng/mL <0.05 HH = 3036) SEPSIS RISK (ng/mL)Low: 0.05-0.50Intermediate: 0.51-2.00High: >=2.01 [id number] 13:10:47 Test Item Value Reference Range Interpretation Comments HAPTOGLOBIN (BEAKER) (test code = 367 mg/dL 14-258 H 366) Pediatrics Physician ID - BSOperator ID - BSCOMPREHENSIVE METABOLIC [id number] 12:56:57 Test Item Value Reference Range Interpretation [...] S NOT APPLICABLE FOR DIALYSIS PATIEN TS. Pediatrics Physician ID - BSHEPATIC FUNCTION [id number] 12:56:40 Test Item Value Reference Range Interpretation [...] Specimen slightly (test code = 347) hemolyzed Pediatrics Physician ID - [id number] 12:56:40 Test Item Value Reference Range Interpretation Comments LIPASE (BEAKER) (test code = 749) 132 U/L 8-78 H Pediatrics Physician ID - [id number] 12:56:39 Test Item Value Reference Range Interpretation Comments MAGNESIUM (BEAKER) 1.9 mg/dL 1.6-2.6 Specimen slightly (test code = 627) hemolyzed Pediatrics Physician ID - [id number] 12:56:39 Test Item Value Reference Range Interpretation Comments PHOSPHORUS (BEAKER) 2.9 mg/dL 2.3-4.7 Specimen slightly (test code = 604) hemolyzed Pediatrics Physician ID - BSVANCOMYCIN LEVEL, [id number] 12:51:35 Test Item Value Reference Range Interpretation Comments VANCOMYCIN TROUGH (BEAKER) (test 14.4 ug/mL 10.0-20.0 code = 522) Pediatrics Physician ID - [id number] 12:43:54 Test Item Value Reference Range Interpretation Comments FIBRINOGEN LEVEL (BEAKER) (test 715 mg/dl 225-434 H code = 658) HEMOGLOBIN AND [id number] 12:34:38 Test Item Value Reference Range Interpretation Comments HEMOGLOBIN (BEAKER) (test code = 8.0 GM/DL 13.7-17.5 L 410) HEMATOCRIT (BEAKER) (test code = 26.2 % 40.1-51.0 L 411) Pediatrics Physician ID - 6000POCT-GLUCOSE [id number] 12:12:10 Test Item Value Reference Range Interpretation Comments POC-GLUCOSE METER 152 mg/dL 70-110 H : TESTED A T [facility] 6720 (BEAKER) (test code = DONNA CHARLES [place], 1538) [address]: Pediatrics Physician/Techni dakota ID = [id number] for Patrick Perez ANTI-DNA [id number] 11:19:56 Test Item Value Reference Range Interpretation Comments ANTI-DNA TITER (BEAKER) (test code = :80 1553) DOUBLE-STRANDED DNA (DSDNA) [id number] 11:19:49 Test Item Value Reference Range Interpretation Comments ANTI-DNA DS (BEAKER) (test code = Positive Negative 1055) ANTI-DNA [id number] 11:19:10 Test Item Value Reference Range Interpretation Comments ANTI-DNA TITER (BEAKER) (test code = :80 1553) DOUBLE-STRANDED DNA (DSDNA) [id number] 11:19:04 Test Item Value Reference Range Interpretation Comments ANTI-DNA DS (BEAKER) (test code = Positive Negative 1055) LACTATE DEHYDROGENASE (LDH)2021-09-07 10:00:12 Test Item Value Reference Range Interpretation Comments LACTATE DEHYDROGENASE (BEAKER) (test 723 U/L 125-220 H code = 635) Pediatrics Physician ID - BSBILIRUBIN, [id number] 10:00:11 Test Item Value Reference Range Interpretation Comments BILIRUBIN DIRECT (BEAKER) (test 0.8 mg/dL 0.1-0.5 H code = 706) Pediatrics Physician ID - BSCBC W/PLT COUNT & AUTO [id number] 08:25:03 Test Item Value Reference Range Interpretation [...] CONCENTRATION Decreased (CELLAVISION)(BEAKER) (test code = 3438) Pediatrics Physician ID - [id number] ID - HariJahmelissa comments: Slide comments:B-TYPE NATRIURETIC FACTOR (BNP)2021-09-07 06:31:12 Test Item Value Reference Range Interpretation Comments B-TYPE NATRIURETIC PEPTIDE (AKER) 269 pg/mL 0-100 H (test code = 700) Pediatrics Physician ID - BSLACTIC ACID, [id number] 06:10:21 Test Item Value Reference Range Interpretation Comments LACTATE BLOOD VENOUS (2) (AKER) 0.76 mmol/L 0.50-2.20 (test code = 2872) Pediatrics Physician ID - NQAQLG-[id number] 03:08:41 Test Item Value Reference Range Interpretation Comments POC-Glucose (test code = 153 mg/dL 70-110 H : T ESTED AT [facility] 1855) [address] [place] [address], [address]: Pediatrics Physician/Techni dakota ID = [id number] for URCIA, FAMELA Lab Interpretation (test Abnormal code = 82243-9) [facility]-[id number] 03:08:41 Test Item Value Reference Range Interpretation Comments POC-Hematocrit (test code 21 % 40-50 L : = 1857) Pediatrics Physician/Techni dakota ID = [id number] for URCIA, FAMELA Lab Interpretation (test Abnormal code = 97539-7) [id number] 03:08:41 Test Item Value Reference Range Interpretation Comments POC-Glucose (test code = 153 mg/dL 70-110 H : T ESTED AT [facility] 1855) [address] [place] [address], [address] 30: Pediatrics Physician/Techni dakota ID = [id number] for URCIA, FAMELA Lab Interpretation (test Abnormal code = 90552-7) [facility]-[id number] 03:08:41 Test Item Value Reference Range Interpretation Comments POC-Hematocrit (test code 21 % 40-50 L : = 1857) Pediatrics Physician/Techni dakota ID = [id number] for URCIA, FAMELA Lab Interpretation (test Abnormal code = 80865-1) [facility]WDSJSYF2509-41-39 03:08:41 Test Item Value Reference Range Interpretation Comments POC-Glucose (test code = 153 mg/dL 70-110 H : T ESTED AT [facility] 1855) [address] [place] [address], 770 30: Pediatrics Physician/Techni dakota ID = [id number] for URCIA, FAMELA Lab Interpretation (test Abnormal code = 55527-1) [facility]-[id number] 03:08:41 Test Item Value Reference Range Interpretation Comments POC-Hematocrit (test code 21 % 40-50 L : = 1857) Pediatrics Physician/Techni dakota ID = [id number] for URCIA, FAMELA Lab Interpretation (test Abnormal code = 11325-9) [facility]FNTPWBX9457-54-86 03:08:41 Test Item Value Reference Range Interpretation Comments POC-Glucose (test code = 153 mg/dL 70-110 H : T ESTED AT [facility] 1855) [address] [place] [address], 770 30: Pediatrics Physician/Techni dakota ID = [id number] for URCIA, FAMELA Lab Interpretation (test Abnormal code = 51220-6) [facility]-[id number] 03:08:41 Test Item Value Reference Range Interpretation Comments POC-Hematocrit (test code 21 % 40-50 L : = 1857) Pediatrics Physician/Techni dakota ID = [id number] for URCIA, FAMELA Lab Interpretation (test Abnormal code = 80661-3) [facility]iumYFHSVSL2989-26-59 03:08:41 Test Item Value Reference Range Interpretation Comments POC-Glucose (test code = 153 mg/dL 70-110 H : T ESTED AT [facility] 1855) [address] [place] [address], 770 30: Pediatrics Physician/Techni dakota ID = [id number] for URCIA, FAMELA Lab Interpretation (test Abnormal code = 31195-2) [facility]-[id number] 03:08:41 Test Item Value Reference Range Interpretation Comments POC-Hematocrit (test code 21 % 40-50 L : = 1857) Pediatrics Physician/Techni dakota ID = [id number] for URCIA, FAMELA Lab Interpretation (test Abnormal code = 50755-7) [facility]iumQPLROHZ9060-68-91 03:08:41 Test Item Value Reference Range Interpretation Comments POC-Glucose (test code = 153 mg/dL 70-110 H : T ESTED AT [facility] 1855) [address] [place] [address], 770 30: Pediatrics Physician/Techni dakota ID = [id number] for URCIA, FAMELA Lab Interpretation (test Abnormal code = 59008-4) [facility]-[id number] 03:08:41 Test Item Value Reference Range Interpretation Comments POC-Hematocrit (test code 21 % 40-50 L : = 1857) Pediatrics Physician/Techni dakota ID = [id number] for URCIA, FAMELA Lab Interpretation (test Abnormal code = 47133-2) [id number] 03:08:41 Test Item Value Reference Range Interpretation Comments POC-Glucose (test code = 153 mg/dL 70-110 H : [facility] [address] [place] [address], 7[address] 30: Pediatrics Physician/Techni dakota ID = [id number] for URCIA, FAMELA Lab Interpretation (test Abnormal code = 48930-0) [facility]iumZWBZLQOQLH2884-51-26 03:08:41 Test Item Value Reference Range Interpretation Comments POC-Hematocrit (test code 21 % 40-50 L : = 1857) Pediatrics Physician/Techni dakota ID = [id number] for URCIA, FAMELA Lab Interpretation (test Abnormal code = 29825-4) [facility]iumHYNGXWY3408-14-96 03:08:41 Test Item Value Reference Range Interpretation Comments POC-Glucose (test code = 153 mg/dL 70-110 H : [facility] [address] [place] [address], 7[address] 30: Pediatrics Physician/Techni dakota ID = [id number] for URCIA, FAMELA Lab Interpretation (test Abnormal code = 78583-8) [id number] 03:08:41 Test Item Value Reference Range Interpretation Comments POC-Hematocrit (test code 21 % 40-50 L : = 1857) Pediatrics Physician/Techni dakota ID = [id number] for URCIA, FAMELA Lab Interpretation (test Abnormal code = 18739-0) [facility]iumYXNIWCQ8579-58-45 03:08:41 Test Item Value Reference Range Interpretation Comments POC-Glucose (test code = 153 mg/dL 70-110 H : [facility] [address] [place] [address], 770 30: Pediatrics Physician/Techni dakota ID = [id number] for URCIA, FAMELA Lab Interpretation (test Abnormal code = 81325-9) [facility]-VLAVWHUUEN3318-99-21 03:08:41 Test Item Value Reference Range Interpretation Comments POC-Hematocrit (test code 21 % 40-50 L : = 1857) Pediatrics Physician/Techni dakota ID = [id number] for URCIA, FAMELA Lab Interpretation (test Abnormal code = 65453-8) [facility]POCT-[id number] 03:08:41 Test Item Value Reference Range Interpretation Comments POC-Glucose (test code = 153 mg/dL 70-110 H : T ESTED AT [facility] 1855) 6720 [facility], 770 30: Pediatrics Physician/Techni dakota ID = [id number] for URCIA, FAMELA Lab Interpretation (test Abnormal code = 88339-0) [facility]-[id number] 03:08:41 Test Item Value Reference Range Interpretation Comments POC-Hematocrit (test code 21 % 40-50 L : = 1857) Pediatrics Physician/Techni dakota ID = [id number] for URCIA, FAMELA Lab Interpretation (test Abnormal code = 10600-4) [facility]-[id number] 03:08:41 Test Item Value Reference Range Interpretation Comments POC-HEMATOCRIT 21 % 40-50 L : Pediatrics Physician/Te chnician ID = (BEAKER) (test code = 425914 for URCIA, FAMELA 1857) MLTL-[id number] 03:08:41 Test Item Value Reference Range Interpretation Comments POC-GLUCOSE (BEAKER) 153 mg/dL 70-110 H : TESTE D AT [facility] 6720 (test code = 1855) [facility], [address]: Pediatrics Physician/Techni dakota ID = [id number] for URCI A, FAMELA YON-Gwdytvllx9733-51-21 03:08:40 Test Item Value Reference Range Interpretation Comments POC-Potassium (test code 3.8 meq/L 3.6-5.5 : T ESTED AT [facility] = 1540) 6720 [facility], 770 30: Pediatrics Physician/Techni dakota ID = [id number] for URCIA, FAMELA Lab Interpretation (test Normal code = 27040-3) [facility]iumPOBJLYBIVK1173-69-39 03:08:40 Test Item Value Reference Range Interpretation Comments POC-Hemoglobin (test code 7.1 g/dL 13.0-16.8 L : TESTED AT [facility] = 1856) [address] [place] [address], [facility] 30: Pediatrics Physician/Techni dakota ID = [id number] for URCIA, FAMELA Lab Interpretation (test Abnormal code = 16277-5) [facility]-Umsrqsaqu6180-47-65 03:08:40 Test Item Value Reference Range Interpretation Comments POC-Potassium (test code 3.8 meq/L 3.6-5.5 : T ESTED AT [facility] = 1540) [address] [place] [address], [facility] 30: Pediatrics Physician/Techni dakota ID = [id number] for URCIA, FAMELA Lab Interpretation (test Normal code = 45877-9) [facility]iumQMTGYIZVQK9432-58-13 03:08:40 Test Item Value Reference Range Interpretation Comments POC-Hemoglobin (test code 7.1 g/dL 13.0-16.8 L : TESTED AT [facility] = 1856) [address] [place] [address], [facility] 30: Pediatrics Physician/Techni dakota ID = [id number] for URCIA, FAMELA Lab Interpretation (test Abnormal code = 98473-7) [facility]Aimvdlzbu0622-90-81 03:08:40 Test Item Value Reference Range Interpretation Comments POC-Potassium (test code 3.8 meq/L 3.6-5.5 : T ESTED AT [facility] = 1540) [address] [place] [address], [facility] 30: Pediatrics Physician/Techni dakota ID = [id number] for URCIA, FAMELA Lab Interpretation (test Normal code = 47635-8) [facility]iumKSQBSCBWVL3821-99-03 03:08:40 Test Item Value Reference Range Interpretation Comments POC-Hemoglobin (test code 7.1 g/dL 13.0-16.8 L : TESTED AT [facility] = 1856) [address] [place] [address], [facility] 30: Pediatrics Physician/Techni dakota ID = [id number] for URCIA, FAMELA Lab Interpretation (test Abnormal code = 76916-5) [facility]-Zhakkjnnl5646-48-61 03:08:40 Test Item Value Reference Range Interpretation Comments POC-Potassium (test code 3.8 meq/L 3.6-5.5 : T ESTED AT [facility] = 1540) [address] [place] [address], [facility] 30: Pediatrics Physician/Techni dakota ID = [id number] for URCIA, FAMELA Lab Interpretation (test Normal code = 73310-7) [facility]-AHUBUBXLOJ5222-40-52 03:08:40 Test Item Value Reference Range Interpretation Comments POC-Hemoglobin (test code 7.1 g/dL 13.0-16.8 L : TESTED AT [facility] = 1856) [address] [place] [address], [facility] 30: Pediatrics Physician/Techni dakota ID = [id number] for URCIA, FAMELA Lab Interpretation (test Abnormal code = 69506-2) [facility]uraFtjjrcomb2028-26-73 03:08:40 Test Item Value Reference Range Interpretation Comments POC-Potassium (test code 3.8 meq/L 3.6-5.5 : T ESTED AT [facility] = 1540) [address] [place] [address], [facility] 30: Pediatrics Physician/Techni dakota ID = [id number] for URCIA, FAMELA Lab Interpretation (test Normal code = 91227-0) [facility]-[id number] 03:08:40 Test Item Value Reference Range Interpretation Comments POC-Hemoglobin (test code 7.1 g/dL 13.0-16.8 L : [facility] [address] [place] [address], [facility] 30: Pediatrics Physician/Techni dakota ID = [id number] for URCIA, FAMELA Lab Interpretation (test Abnormal code = 90848-3) [facility]uraNxeoiyjzx4393-76-98 03:08:40 Test Item Value Reference Range Interpretation Comments POC-Potassium (test code 3.8 meq/L 3.6-5.5 : T ESTED AT [facility] = 1540) [address] [place] [address], [facility] 30: Pediatrics Physician/Techni dakota ID = [id number] for URCIA, FAMELA Lab Interpretation (test Normal code = 51061-8) [facility]iumFJERTRLIED6046-42-23 03:08:40 Test Item Value Reference Range Interpretation Comments POC-Hemoglobin (test code 7.1 g/dL 13.0-16.8 L : TESTED AT [facility] = 1856) [address] [place] [address], [facility] 30: Pediatrics Physician/Techni dakota ID = [id number] for URCIA, FAMELA Lab Interpretation (test Abnormal code = 35517-5) [facility]-Dyivjncaf4561-79-40 03:08:40 Test Item Value Reference Range Interpretation Comments POC-Potassium (test code 3.8 meq/L 3.6-5.5 : T ESTED AT [facility] = 1540) [address] [place] [address], [facility] 30: Pediatrics Physician/Techni dakota ID = [id number] for URCIA, FAMELA Lab Interpretation (test Normal code = 94235-2) [facility]iumJVNCGHCGBA3724-33-23 03:08:40 Test Item Value Reference Range Interpretation Comments POC-Hemoglobin (test code 7.1 g/dL 13.0-16.8 L : TESTED AT [facility] = 1856) [address] [place] [address], [facility] 30: Pediatrics Physician/Techni dakota ID = [id number] for URCIA, FAMELA Lab Interpretation (test Abnormal code = 26605-2) [facility]uraCxxtvgeoi3325-80-71 03:08:40 Test Item Value Reference Range Interpretation Comments POC-Potassium (test code 3.8 meq/L 3.6-5.5 : T ESTED AT [facility] = 1540) [address] [place] [address], [facility] 30: Pediatrics Physician/Techni dakota ID = [id number] for URCIA, FAMELA Lab Interpretation (test Normal code = 72311-8) [facility]iumSYAWXDELXP6765-42-10 03:08:40 Test Item Value Reference Range Interpretation Comments POC-Hemoglobin (test code 7.1 g/dL 13.0-16.8 L : TESTED AT [facility] = 1856) [address] [place] [address], [facility] 30: Pediatrics Physician/Techni dakota ID = [id number] for URCIA, FAMELA Lab Interpretation (test Abnormal code = 41945-3) [facility]uraUcwojnaug6350-64-06 03:08:40 Test Item Value Reference Range Interpretation Comments POC-Potassium (test code 3.8 meq/L 3.6-5.5 : T ESTED AT [facility] = 1540) [address] [place] [address], 770 30: Pediatrics Physician/Techni dakota ID = [id number] for URCIA, FAMELA Lab Interpretation (test Normal code = 67315-9) [facility]-LGWLNZOAUR0478-55-33 03:08:40 Test Item Value Reference Range Interpretation Comments POC-Hemoglobin (test code 7.1 g/dL 13.0-16.8 L : TESTED AT [facility] = 1856) [address] [place] [address], 770 30: Pediatrics Physician/Techni dakota ID = [id number] for URCIA, FAMELA Lab Interpretation (test Abnormal code = 37469-9) [facility]-Mpbdgwjec1615-48-88 03:08:40 Test Item Value Reference Range Interpretation Comments POC-Potassium (test code 3.8 meq/L 3.6-5.5 : T ESTED AT [facility] = 1540) [address] [place] [address], 770 30: Pediatrics Physician/Techni dakota ID = [id number] for URCIA, FAMELA Lab Interpretation (test Normal code = 50662-6) [facility]-LMQNJUCXBI6745-12-36 03:08:40 Test Item Value Reference Range Interpretation Comments POC-Hemoglobin (test code 7.1 g/dL 13.0-16.8 L : TESTED AT [facility] = 1856) [address] [place] [address], 770 30: Pediatrics Physician/Techni dakota ID = [id number] for URCIA, FAMELA Lab Interpretation (test Abnormal code = 55522-2) [facility]-SABDQWSPE9384-41-96 03:08:40 Test Item Value Reference Range Interpretation Comments POC-POTASSIUM 3.8 meq/L 3.6-5.5 : TESTED AT [facility] 6720 (BEAKER) (test code [facility], = 1540) [address]: Pediatrics Physician/Techni dakota ID = [id number] for URCI A, FAMELA XJPC-[id number] 03:08:40 Test Item Value Reference Range Interpretation Comments POC-HEMOGLOBIN 7.1 g/dL 13.0-16.8 L : TESTED AT [facility] 6720 (BEAKER) (test code = [place] [facility], 1856) [address]: Pediatrics Physician/Techni dakota ID = [id number] for URCI A, FAMELA POC-Blood gases, hdpbvmve6413-15-89 03:08:39 Test Item Value Reference Range Interpretation Comments Temp. Celsius-POC (test 97.2 code = 1834) FIO2-POC (test code = 54 1835) pH, Arterial-POC (test 7.429 7.350-7.450 code = 1836) PCO2, Arterial-POC 33.3 See_Comment L If pO2 is >180, pCO2 (test code = 1837) may be po sitively biased [Automat ed message] The Factual stem which generated this result transmit hernandez reference range : 35.0 - 45.0 mm Hg. The reference r colby was not used to interpret this result as normal/abnormal . PO2, Arterial-POC (test 55.0 See_Comment L [Au tomated message] code = 1838) The system Appwiz generated this result transmit hernandez reference range : 80.0 - 90.0 mm Hg. The reference r colby was not used to interpret this result as normal/abnormal . SO2, Arterial-POC (test 91.0 % 96.0-97.0 L code = 1839) HCO3, Arterilal-POC 22.2 meq/L 21.0-29.0 (test code = 1840) BE, Arterial-POC (test -2.0 meq/L -2.0-3.0 : LIONEL HERNANDEZ AT [facility] code = 1841) [address] [place] [address] [place], [address]: Pediatrics Physician/Techni dakota ID = [id number] for URCIA, FAMELA Lab Interpretation Abnormal (test code = 33484-4) [facility]-Lbfswa6093-88-88 03:08:39 Test Item Value Reference Range Interpretation Comments POC-Sodium (test code = 134 meq/L 135-148 L : TE STED AT [facility] 1542) [address] [place] [address], 770 30: Pediatrics Physician/Techni dakota ID = [id number] for URCIA, FAMELA Lab Interpretation (test Abnormal code = 50846-9) [facility]-Blood gases, apxdiwqm6747-51-96 03:08:39 Test Item Value Reference Range Interpretation [...] tomated message] code = 1838) The system Brainceuticalsic h generated this result transmit hernandez reference range : 80.0 - 90.0 mm Hg. The reference r colby was not used to interpret this result as normal/abnormal . SO2, Arterial-POC (test 91.0 % 96.0-97.0 L code = 1839) HCO3, Arterilal-POC 22.2 meq/L 21.0-29.0 (test code = 1840) BE, Arterial-POC (test -2.0 meq/L -2.0-3.0 : LIONEL HERNANDEZ AT [facility] code = 1841) [address] [facility], [address]: Pediatrics Physician/Techni dakota ID = [id number] for URCIA, FAMELA Lab Interpretation Abnormal (test code = 22803-9) [facility]-Tbpxsj2617-81-18 03:08:39 Test Item Value Reference Range Interpretation Comments POC-Sodium (test code = 134 meq/L 135-148 L : TE STED AT [facility] 1542) [address] [facility] [place], [address]: Pediatrics Physician/Techni dakota ID = [id number] for URCIA, FAMELA Lab Interpretation (test Abnormal code = 03646-4) [facility]-Blood gases, mkwzaqbv6705-58-36 03:08:39 Test Item Value Reference Range Interpretation [...] tomated message] code = 1838) The system Brainceuticalsic h generated this result transmit hernandez reference range : 80.0 - 90.0 mm Hg. The reference r colby was not used to interpret this result as normal/abnormal . SO2, Arterial-POC (test 91.0 % 96.0-97.0 L code = 1839) HCO3, Arterilal-POC 22.2 meq/L 21.0-29.0 (test code = 1840) BE, Arterial-POC (test -2.0 meq/L -2.0-3.0 : LIONEL HERNANDEZ AT [facility] code = 1841) [address] [facility], [address]: Pediatrics Physician/Techni dakota ID = [id number] for URCIA, FAMELA Lab Interpretation Abnormal (test code = 82901-2) [facility]-Omgpwe8927-95-19 03:08:39 Test Item Value Reference Range Interpretation Comments POC-Sodium (test code = 134 meq/L 135-148 L : TE STED AT [facility] 1542) [address] [facility] [place], [address]: Pediatrics Physician/Techni dakota ID = [id number] for URCIA, FAMELA Lab Interpretation (test Abnormal code = 62897-6) [facility]-Blood gases, qjkwwigv2897-76-22 03:08:39 Test Item Value Reference Range Interpretation [...] tomated message] code = 1838) The system Appw[employer] generated this result transmit hernandez reference range : 80.0 - 90.0 mm Hg. The reference r colby was not used to interpret this result as normal/abnormal . SO2, Arterial-POC (test 91.0 % 96.0-97.0 L code = 1839) HCO3, Arterilal-POC 22.2 meq/L 21.0-29.0 (test code = 1840) BE, Arterial-POC (test -2.0 meq/L -2.0-3.0 : LIONEL HERNANDEZ AT [facility] code = 1841) [address] [facility], [address]: Pediatrics Physician/Techni dakota ID = [id number] for URCIA, FAMELA Lab Interpretation Abnormal (test code = 01640-9) [facility]-Vsxlia6210-94-77 03:08:39 Test Item Value Reference Range Interpretation Comments POC-Sodium (test code = 134 meq/L 135-148 L : TE STED AT [facility] 1542) [address] [facility], [address]: Pediatrics Physician/Techni dakota ID = [id number] for URCIA, FAMELA Lab Interpretation (test Abnormal code = 91968-4) [facility]-Blood gases, doxifixj9858-95-08 03:08:39 Test Item Value Reference Range Interpretation [...] tomated message] code = 1838) The system Appw[employer] generated this result transmit hernandez reference range : 80.0 - 90.0 mm Hg. The reference r colby was not used to interpret this result as normal/abnormal . SO2, Arterial-POC (test 91.0 % 96.0-97.0 L code = 1839) HCO3, Arterilal-POC 22.2 meq/L 21.0-29.0 (test code = 1840) BE, Arterial-POC (test -2.0 meq/L -2.0-3.0 : LIONEL HERNANDEZ AT [facility] code = 1841) [address] [facility], [address]: Pediatrics Physician/Techni dakota ID = [id number] for URCIA, FAMELA Lab Interpretation Abnormal (test code = 80555-1) [facility]-[id number] 03:08:39 Test Item Value Reference Range Interpretation Comments POC-Sodium (test code = 134 meq/L 135-148 L : TE STED AT [facility] 1542) [address] [facility], [address]: Pediatrics Physician/Techni dakota ID = [id number] for URCIA, FAMELA Lab Interpretation (test Abnormal code = 00427-2) [facility]-Blood gases, [id number] 03:08:39 Test Item Value Reference Range Interpretation [...] tomated message] code = 1838) The system Appwiz generated this result transmit hernandez reference range : 80.0 - 90.0 mm Hg. The reference r colby was not used to interpret this result as normal/abnormal . SO2, Arterial-POC (test 91.0 % 96.0-97.0 L code = 1839) HCO3, Arterilal-POC 22.2 meq/L 21.0-29.0 (test code = 1840) BE, Arterial-POC (test -2.0 meq/L -2.0-3.0 : LIONEL HERNANDEZ AT [facility] code = 1841) [address] [place], [address]: Pediatrics Physician/Techni dakota ID = [id number] for URCIA, FAMELA Lab Interpretation Abnormal (test code = 53794-9) [facility]-[id number] 03:08:39 Test Item Value Reference Range Interpretation Comments POC-Sodium (test code = 134 meq/L 135-148 L : TE STED AT [facility] 1542) [address] [facility] [place], [address]: Pediatrics Physician/Techni dakota ID = [id number] for URCIA, FAMELA Lab Interpretation (test Abnormal code = 35228-0) [facility]-Blood gases, [id number] 03:08:39 Test Item Value Reference Range Interpretation [...] -2.0 meq/L -2.0-3.0 : LIONEL HERNANDEZ AT [facility] code = 1841) [address] [facility], [address]: Pediatrics Physician/Techni dakota ID = [id number] for URCIA, FAMELA Lab Interpretation Abnormal (test code = 18219-6) [facility]-[id number] 03:08:39 Test Item Value Reference Range Interpretation Comments POC-Sodium (test code = 134 meq/L 135-148 L : TE STED AT [facility] 1542) [address] [facility], [address]: Pediatrics Physician/Techni dakota ID = [id number] for URCIA, FAMELA Lab Interpretation (test Abnormal code = 38372-5) [facility]-Blood gases, [id number] 03:08:39 Test Item Value Reference Range Interpretation [...] tomated message] code = 1838) The system Appwiz generated this result transmit hernandez reference range : 80.0 - 90.0 mm Hg. The reference r colby was not used to interpret this result as normal/abnormal . SO2, Arterial-POC (test 91.0 % 96.0-97.0 L code = 1839) HCO3, Arterilal-POC 22.2 meq/L 21.0-29.0 (test code = 1840) BE, Arterial-POC (test -2.0 meq/L -2.0-3.0 : LIONEL HERNANDEZ AT [facility] code = 1841) [address] [place], [address]: Pediatrics Physician/Techni dakota ID = [id number] for URCIA, FAMELA Lab Interpretation Abnormal (test code = 96389-0) [facility]-[id number] 03:08:39 Test Item Value Reference Range Interpretation Comments POC-Sodium (test code = 134 meq/L 135-148 L : TE STED AT [facility] 1542) [address] [facility] [place], [address]: Pediatrics Physician/Techni dakota ID = [id number] for URCIA, FAMELA Lab Interpretation (test Abnormal code = 20765-5) [facility]-Blood gases, [id number] 03:08:39 Test Item Value Reference Range Interpretation [...] tomated message] code = 1838) The system Appwiz generated this result transmit hernandez reference range : 80.0 - 90.0 mm Hg. The reference r colby was not used to interpret this result as normal/abnormal . SO2, Arterial-POC (test 91.0 % 96.0-97.0 L code = 1839) HCO3, Arterilal-POC 22.2 meq/L 21.0-29.0 (test code = 1840) BE, Arterial-POC (test -2.0 meq/L -2.0-3.0 : LIONEL HERNANDEZ AT [facility] code = 1841) [address] [place], [address]: Pediatrics Physician/Techni dakota ID = [id number] for URCIA, FAMELA Lab Interpretation Abnormal (test code = 63492-1) [facility]-[id number] 03:08:39 Test Item Value Reference Range Interpretation Comments POC-Sodium (test code = 134 meq/L 135-148 L : TE STED AT [facility] 1542) [address] [facility], [address]: Pediatrics Physician/Techni dakota ID = [id number] for URCIA, FAMELA Lab Interpretation (test Abnormal code = 39560-1) [facility]-Blood gases, [id number] 03:08:39 Test Item Value Reference Range Interpretation [...] tomated message] code = 1838) The system Nykaa h generated this result transmit hernandez reference range : 80.0 - 90.0 mm Hg. The reference r colby was not used to interpret this result as normal/abnormal . SO2, Arterial-POC (test 91.0 % 96.0-97.0 L code = 1839) HCO3, Arterilal-POC 22.2 meq/L 21.0-29.0 (test code = 1840) BE, Arterial-POC (test -2.0 meq/L -2.0-3.0 : LIONEL HERNADNEZ AT [facility] code = 1841) [address] [place], [address]: Pediatrics Physician/Techni dakota ID = [id number] for URCIA, FAMELA Lab Interpretation Abnormal (test code = 55831-4) [facility]-[id number] 03:08:39 Test Item Value Reference Range Interpretation Comments POC-Sodium (test code = 134 meq/L 135-148 L : TE STED AT [facility] 1542) [address] [facility], [address]: Pediatrics Physician/Techni dakota ID = [id number] for URCIA, FAMELA Lab Interpretation (test Abnormal code = 05154-5) [facility] [id number] 03:08:39 Test Item Value Reference Range Interpretation [...] EXCESS, -2.0 meq/L -2.0-3.0 : TESTED AT [facility] 6720 ARTERIAL-POC [facility], (BEAKER) (test code 60388: = 1841) Pediatrics Physician/Techni dakota ID = [id number] for URCI A, FAMELA [id number] 03:08:39 Test Item Value Reference Range Interpretation Comments POC-SODIUM (BEAKER) 134 meq/L 135-148 L : TESTED AT [facility] 6720 (test code = 1542) [facility] [place], [address]: Pediatrics Physician/Techni dakota ID = [id number] for URCI A, FAMELA RAD, CHEST, 1 VIEW, NON [id number] 03:00:00Reason for exam:- >destaurationShould this be performed at the bedside?->Yes [facility] : 2000 Sex: [...] MDReport Verified Date/Time: 09/07/2021 03:00:20 BASIC METABOLIC [id number] 01:49:40 Test Item Value Reference Range Interpretation [...] S NOT APPLICABLE FOR DIALYSIS PATIEN TS. Pediatrics Physician ID - [id number] 01:38:31 Test Item Value Reference Range Interpretation Comments PHOSPHORUS (BEAKER) (test code = 3.1 mg/dL 2.3-4.7 604) Pediatrics Physician ID - [id number] 01:38:30 Test Item Value Reference Range Interpretation Comments MAGNESIUM (GENEVA) (test code = 1.9 mg/dL 1.6-2.6 627) Pediatrics Physician ID - BSPOCT-GLUCOSE [id number] 00:10:21 Test Item Value Reference Range Interpretation Comments POC-GLUCOSE METER 128 mg/dL 70-110 H : TESTED A T [facility] 6720 (GENEVA) (test code = [facility], 1538) [address]: Pediatrics Physician/Techni dakota ID = [id number] for ABBIE PIERRE POCT-GLUCOSE [id number] 15:58:02 Test Item Value Reference Range Interpretation Comments POC-GLUCOSE METER 142 mg/dL 70-110 H : TESTED A T [facility] 6720 (GENEVA) (test code = [facility], 1538) [address]: Pediatrics Physician/Techni dakota ID = [id number] for Laura Ch POCT-GLUCOSE [id number] 13:04:07 Test Item Value Reference Range Interpretation Comments POC-GLUCOSE METER 141 mg/dL 70-110 H : TESTED A T [facility] 6720 (GENEVA) (test code = [facility], 1538) [address]: Pediatrics Physician/Techni dakota ID = [id number] for Rubén reinierjeanineLaura TSH/FREE T4 IF [id number] 11:33:39 Test Item Value Reference Range Interpretation Comments THYROID STIMULATING HORMONE 4.429 uIU/mL 0.350-4.940 (GENEVA) (test code = 772) Pediatrics Physician ID - PIAYASARS-COV2/RT-PCR ([facility])2021-09-06 10:50:02 Test Item Value Reference Range Interpretation Comments SARS-COV2/RT-PCR (test Negative Not Detected, Negative, code = 7476611) See external report for linked test SARS-COV-2 PERFORMING LAB [facility] (test code = 1089919) Negative result for this test determines that [...] of the Act.Fact Sheet for Healthcare Prov iders:https://www.Get10/sites/default/files/product/documents/Fact_Sheet_HC _Irhogxgxg_Ngio_HMMX-IfB-4.pdfFact Sheet for Healthcare Patients:https://www.Get10/sites/default/files/product/docume nts/Daya_Hrzgs_Dbwfncpu_Mxha_KACI-NkV-9.pdfPerforming Laboratory:[facility], [place] [address]UJETIDY D, 25-HYDROXY 2021-09-06 07:57:12 Test Item Value Reference Range Interpretation Comments VITAMIN D 25-OH (GENEVA) (test 15.4 ng/mL 6.6-49.9 code = 2764) Effective 02/27/2017: Reference Range ChangeNew: 6.6-49.9 ng/mL Previous: 13.0- 47.8 ng/mLRecommendedVitamin D Target Range: 30.0-40.0 ng/mLOperator ID - BS POCT-GLUCOSE [id number] 07:40:30 Test Item Value Reference Range Interpretation Comments POC-GLUCOSE METER 157 mg/dL 70-110 H : TESTED A T [facility] 6720 (BEAKER) (test code = [place], 1538) [address]: Pediatrics Physician/Techni dakota ID = [id number] for Laura Ch COMPLEMENT COMPONENT [id number] 07:37:31 Test Item Value Reference Range Interpretation Comments C3 COMPLEMENT (BEAKER) (test code = 25 mg/dL 82-193 L 393) Pediatrics Physician ID - BSCOMPLEMENT COMPONENT [id number] 07:37:30 Test Item Value Reference Range Interpretation Comments C4 COMPLEMENT (BEAKER) (test code = 4 mg/dL 15-57 L 394) Pediatrics Physician ID - BSPROTEIN, RANDOM [id number] 07:28:02 Test Item Value Reference Range Interpretation Comments PROTEIN, URINE (BEAKER) (test code 411 mg/dL 0-14 H = 1569) Pediatrics Physician ID - BS(CELLAVISION MANUAL DIFF)2021-09-06 07:15:58 Test [...] CONCENTRATION Decreased (CELLAVISION)(BEAKER) (test code = 3438) Pediatrics Physician ID - [id number] ID - joanna Fuentes comments: Slide comments:CBC W/PLT COUNT & AUTO [id number] 07:15:57 Test Item Value Reference Range Interpretation [...] (BEAKER) (test code = 413) CREATININE, RANDOM [id number] 06:26:45 Test Item Value Reference Range Interpretation Comments CREATININE URINE (BEAKER) (test 200.4 mg/dL code = 375) Reference Range: No NormalsOperator ID - BSURINALYSIS W/ [id number] 06:06:22 Test Item Value Reference Range Interpretation [...] code = 1584) SOURCE(BEAKER) (test code = 4855) Pediatrics Physician ID - [auto]Pediatrics Physician ID - techOperator ID - techCOMPREHENSIVE METABOLIC [id number] 02:54:37 Test Item Value Reference Range Interpretation [...] S NOT APPLICABLE FOR DIALYSIS PATIEN TS. Pediatrics Physician ID - BSLACTIC ACID, [id number] 02:42:48 Test Item Value Reference Range Interpretation Comments LACTATE BLOOD VENOUS (2) (BEAKER) 1.38 mmol/L 0.50-2.20 (test code = 4487) Pediatrics Physician ID - [id number] 02:36:26 Test Item Value Reference Range Interpretation Comments MAGNESIUM (BEAKER) (test code = 1.6 mg/dL 1.6-2.6 627) Pediatrics Physician ID - [id number] 02:36:26 Test Item Value Reference Range Interpretation Comments PHOSPHORUS (GENEVA) (test code = 2.4 mg/dL 2.3-4.7 604) Pediatrics Physician ID - BSRAD, CHEST, 1 VIEW, NON [id number] 02:26:00Reason for exam:->sobSH[facility]: [facility] : 2000 Sex: [...] Vernell Ndiaye Verified Date/Time: 09/06/2021 02:26:55 POCT-GLUCOSE [id number] 01:16:19 Test Item Value Reference Range Interpretation Comments POC-GLUCOSE METER 164 mg/dL 70-110 H : TESTED A T [facility] 6720 (GENEVA) (test code = [place], 1538) [address]: Pediatrics Physician/Techni dakota ID = [id number] for GR AHAM, WENDY BASIC METABOLIC [id number] 19:41:58 Test Item Value Reference Range Interpretation [...] S NOT APPLICABLE FOR DIALYSIS PATIEN TS. Pediatrics Physician ID - [id number] 19:38:29 Test Item Value Reference Range Interpretation Comments MAGNESIUM (BEAKER) (test code = 1.7 mg/dL 1.6-2.6 627) Pediatrics Physician ID - [id number] 19:38:29 Test Item Value Reference Range Interpretation Comments PHOSPHORUS (BEAKER) (test code = 2.0 mg/dL 2.3-4.7 L 604) Pediatrics Physician ID - BSPOCT-GLUCOSE [id number] 19:12:09 Test Item Value Reference Range Interpretation Comments POC-GLUCOSE METER 184 mg/dL 70-110 H : TESTED A T [facility] 6720 (BEAKER) (test code = [place], 1538) [address]: Pediatrics Physician/Techni dakota ID = [id number] for CHANTE GIL [id number] 17:52:47 Test Item Value Reference Range Interpretation Comments FERRITIN (BEAKER) (test code = 4212.17 ng/mL 5.00-275.00 H 361) Pediatrics Physician ID - BSOperator ID - BSCT, [id number] 12:57:00Unlisted Reason for Exam - Click Yes and Enter Reason Below->YesUnlisted Reason for Exam->pancreatitis folllow-upIs this for enterography?->NoWill this procedure require oral contrast?->No [facility] : 2000 [...] is mildly enlarged 17.3 cm in length atthe midclavicular line. No focal hepatic lesions. There is hyperdense material in the gallbladder. No gallbladder distention. No biliary ductal dilatation.SPLEEN: 15.3 cm splenomegaly. Multiple calcified granulomas measure up to 0.4 cm. PANCREAS: No focal masses or ductal dilatation. The pancreas is prominent and diffusely mildly hypodense. There is marked fat stranding around the pancreas. ADRENALS:No adrenal nodules.KIDNEYS/URETERS: No hydronephrosis, stones, or masses. A left lower pole simple renal cyst measures 0.4 cm. No follow-up imaging is recommended.PELVIC ORGANS/BLADDER: Unremarkable. PERITONEUM/RETROPERITONEUM: There is a moderate volume of ascites, mainly down the paracolic gutters and in the pelvis. No free air.LYMPH NODES: No lymphadenopathy.VESSELS: The main portal vein is patentand measures 1.6 cm in diameter. GI TRACT: No distention or wall thickening. A feeding tube has its tip in the fourth portion of the duodenum. BONES AND SOFT TISSUES: There is narrowing of the left hipjoint space with subchondral cystic change and remodeling of the femoral head. Schmorl's nodes of the thoracolumbar spine. IMPRESSION: 1.The findings are consistent with acute pancreatitis without pancreatic parenchymal necrosis. Fluid extends down both paracolic gutters and into the pelvis without a loculated, drainable fluid collection. Given the confluence of the peripancreatic fat stranding, perip ancreatic necrosis is possible. 2.Hepatosplenomegaly with diffuse fatty infiltration of the liver. 3.The hyperdense material in the gallbladder could be sludge. 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 Signed: Yash [facility] Verified Date/Time: 09/05/2021 12:57:43 Reading Location: [facility] Imaging Reading Room [place] [address] POCT-GLUCOSE [id number] 12:23:38 Test Item Value Reference Range Interpretation Comments POC-GLUCOSE METER 181 mg/dL 70-110 H : TESTED A T [facility] 6720 (BEAKER) (test code = [facility], 1538) [address]: Pediatrics Physician/Techni dakota ID = [id number] for CHANTE GIL POCT-GLUCOSE [id number] 06:55:24 Test Item Value Reference Range Interpretation Comments POC-GLUCOSE METER 197 mg/dL 70-110 H : TESTED A T [facility] 6720 (BEAKER) (test code = [facility], 1538) [address]: Pediatrics Physician/Techni dakota ID = [id number] for ON UOHA, ALLAN COMPREHENSIVE METABOLIC [id number] 06:16:59 Test Item Value Reference Range Interpretation [...] S NOT APPLICABLE FOR DIALYSIS PATIEN TS. Pediatrics Physician ID - SHREE WCALCIUM, [id number] 05:57:49 Test Item Value Reference Range Interpretation [...] WBC 0-0 (BEAKER) (test code = 413) [id number] 01:18:24 Test Item Value Reference Range Interpretation Comments PHOSPHORUS (BEAKER) (test code = 1.2 mg/dL 2.3-4.7 LL 604) Pediatrics Physician ID - BSBASIC METABOLIC [id number] 01:17:10 Test Item Value Reference Range Interpretation [...] S NOT APPLICABLE FOR DIALYSIS PATIEN TS. Pediatrics Physician ID - [id number] 01:10:55 Test Item Value Reference Range Interpretation Comments MAGNESIUM (BEAKER) (test code = 2.3 mg/dL 1.6-2.6 627) Pediatrics Physician ID - BSPOCT-GLUCOSE [id number] 00:50:48 Test Item Value Reference Range Interpretation Comments POC-GLUCOSE METER 194 mg/dL 70-110 H : TESTED Daphne Miller [facility] 6720 (GENEVA) (test code = [place], 1538) [address]: Pediatrics Physician/Techni dakota ID = [id number] for ON UOHA, ALLAN CT, CHEST WITH IV CONTRAST- PE TEST [id number] 21:21:00Unlisted Reason for Exam - Click Yes and Enter Reason Below->No [facility] : 2000 Sex: [...] Vernell Ndiaye Verified Date/Time: 09/04/2021 21:21:16 POCT-GLUCOSE [id number] 18:23:42 Test Item Value Reference Range Interpretation Comments POC-GLUCOSE METER 248 mg/dL 70-110 H : [facility] (Stalkthis) (test code = [place] [facility], 1538) [address]: Pediatrics Physician/Techni dakota ID = [id number] for Bree Roman [id number] 14:56:22 Test Item Value Reference Range Interpretation Comments CALCIUM (BEAKER) (test code = 697) 5.8 mg/dL 8.4-10.2 LL Pediatrics Physician ID - ADMINPOCT-GLUCOSE [id number] 13:17:18 Test Item Value Reference Range Interpretation Comments POC-GLUCOSE METER 217 mg/dL 70-110 H : TESTED A T [facility] 6720 (BELiquidFrameworks) (test code = [place] [facility], 1538) [address]: Pediatrics Physician/Techni dakota ID = [id number] for Liana Flores CBC W/PLT COUNT & AUTO [id number] 07:22:59 Test Item Value Reference Range Interpretation [...] PERCENT (BEAKER) (test code = 2801) POCT-GLUCOSE [id number] 06:16:20 Test Item Value Reference Range Interpretation Comments POC-GLUCOSE METER 261 mg/dL 70-110 H : TESTED A T [facility] 6720 (BEAKER) (test code = [place], 1538) [address]: Pediatrics Physician/Techni dakota ID = [id number] for KENDALL JOYA COMPREHENSIVE METABOLIC [id number] 05:49:22 Test Item Value Reference Range Interpretation [...] S NOT APPLICABLE FOR DIALYSIS PATIEN TS. Pediatrics Physician ID - [id number] 05:33:14 Test Item Value Reference Range Interpretation Comments MAGNESIUM (BEAKER) (test code = 1.8 mg/dL 1.6-2.6 627) Pediatrics Physician ID - ADMINURINALYSIS W/ REFLEX URINE [id number] 01:34:44 Test Item Value Reference Range Interpretation [...] 1585) Rare SOURCE(BEAKER) (test code = 2795) Pediatrics Physician ID - [auto]Pediatrics Physician ID - techPOCT-GLUCOSE [id number] 00:34:17 Test Item Value Reference Range Interpretation Comments POC-GLUCOSE METER 261 mg/dL 70-110 H : TESTED A T [facility] 6720 (BEAKER) (test code = [place], 1538) [address]: Pediatrics Physician/Techni dakota ID = [id number] for KENDALL JOYA [id number] 18:57:34 Test Item Value Reference Range Interpretation Comments MAGNESIUM (BEAKER) (test code = 1.3 mg/dL 1.6-2.6 L 627) Pediatrics Physician ID - ADMINPOCT-GLUCOSE [id number] 18:04:02 Test Item Value Reference Range Interpretation Comments POC-GLUCOSE METER 307 mg/dL 70-110 H : TESTED A T [facility] 6720 (BEAKER) (test code = [place] [facility], 1538) [address]: Pediatrics Physician/Techni dakota ID = [id number] for Liana Flores RAD, ABDOMEN/KUB, 1 VIEW [id number] 18:01:00Reason for exam:->Enteric tube placement verification [facility] : 2000 Sex: [...] MDReport Verified Date/Time: 09/03/2021 18:01:34 COMPREHENSIVE METABOLIC [id number] 17:50:55 Test Item Value Reference Range Interpretation [...] S NOT APPLICABLE FOR DIALYSIS PATIEN TS. Pediatrics Physician ID - [id number] ID - [id number] ID - ADMINCBC W/PLT COUNT & AUTO [id number] 17:43:10 Test Item Value Reference Range Interpretation [...] code = 2801) RAD, ABDOMEN/KUB, 1 VIEW [id number] 17:14:00Reason for exam:->confirm NGT placementSHARP CHULA VISTA [facility]Name: [facility] : 2000 Sex: [...] air is identified. Signed: Anne Marie Correa MDRepchildren's mercy hospital Verified Date/Time: 09/03/2021 17:14:35 , CHEST, 1 VIEW, NON [id number] 16:50:00Reason for exam:->ngt placementShould this be performed at the bedside?->Yes [facility] : 2000 Sex: MFINALREPORT INDICATION: ngt placement COMPARISON: None TECHNIQUE: Single frontal view of the chest. FINDINGS: Lungs and pleura: Trace right effusion and basilar atelectasisHeart and mediastinum: Normal heart size. Unremarkable mediastinal contours.Osseous structures: No acute abnormality.Other: Feeding tube descends below the diaphragm. Signed: Anne Marie Correa MDRepceferino Verified Date/Time: 09/03/2021 16:50:54 [id number] 10:58:42 Test Item Value Reference Range Interpretation Comments PHOSPHORUS (BEAKER) 1.6 mg/dL 2.3-4.7 L Specimen slightly (test code = 604) hemolyzed Pediatrics Physician ID - BISI GCOMPREHENSIVE METABOLIC [id number] 06:03:24 Test Item Value Reference Range Interpretation [...] S NOT APPLICABLE FOR DIALYSIS PATIEN TS. Pediatrics Physician ID - BISI GPOCT-GLUCOSE [id number] 22:25:14 Test Item Value Reference Range Interpretation Comments POC-GLUCOSE METER 312 mg/dL 70-110 H : TESTED A T [facility] 67 ([facility]) (test code = [facility], 1538) [address]: Pediatrics Physician/Techni dakota ID = [id number] for FABRIZIO JOYCE POCT-GLUCOSE [id number] 19:00:17 Test Item Value Reference Range Interpretation Comments POC-GLUCOSE METER 339 mg/dL 70-110 H : Notified RN/MD: ([facility]) (test code = TESTED AT [facility] 6720 1538) D[place] [facility], [address]: Pediatrics Physician/Techni dakota ID = [id number] for Rudy mccord (contract)Emeka yana PROTEIN, RANDOM [id number] 08:28:13 Test Item Value Reference Range Interpretation Comments PROTEIN, URINE (BEAKER) (test code 243 mg/dL 0-14 H = 1569) Pediatrics Physician ID - BSOperator ID - BSCREATININE, RANDOM [id number] 07:21:31 Test Item Value Reference Range Interpretation Comments CREATININE URINE (BEAKER) (test 122.9 mg/dL code = 375) Reference Range: No NormalsOperator ID - BSRAD, CHEST, 1 VIEW, NON DEPT 2021-09-02 01:55:00Reason for exam:->chest painShould this be performed at the bedside?->Yes [facility] : 2000 Sex: MFINAL REPORT History: chest pain. Comparison: None. Findings: A single view of the chest is submitted. The cardiomediastinal contours are unremarkable. There is no focal consolidation, pneumothorax, large pleural effusion or evidence of overt pulmonary edema. There is no acute bony abnormality. Impression: No acute abnormality. Signed: Miles Alicia Verified Date/Time: 09/02/2021 01:55:59 POCT-GLUCOSE [id number] 23:28:42 Test Item Value Reference Range Interpretation Comments POC-GLUCOSE METER 277 mg/dL 70-110 H : TESTED A T [facility] 6720 (Stalkthis) (test code = [facility] [place] [facility], 1538) [address]: Pediatrics Physician/Techni dakota ID = [id number] for WILDA RODRIGUESCA POCT-GLUCOSE [id number] 18:19:51 Test Item Value Reference Range Interpretation Comments POC-GLUCOSE METER 263 mg/dL 70-110 H : TESTED A T [facility] 6720 (Ultimate ShopperAKER) (test code = [facility], 1538) [address]: Pediatrics Physician/Techni dakota ID = [id number] for Laura Ch HIGH SENSITIVITY TROPONIN [id number] 17:04:34 Test Item Value Reference Range Interpretation Comments HIGH SENSITIVITY < pg/ml See_Comment [Automated message] TROPONIN I (test code = The system which 7522154) generated this result transmitted ref erence range: <=35. Th e reference range was not used to interpr et this result as normal/abnormal . Pediatrics Physician ID - BSThe HEAD END DESIZING MACHINE OPERATOR STAT High Sensitivity Troponin-I results should be used in conjunctionwith other diagnostic information such as ECG, clinical observations and information, and patient symptoms to aid in the diagnosis of [place].(CELLAVISION MANUAL DIFF)2021-09-01 10:37:19 Test Item Value Reference [...] CONCENTRATION Decreased (CELLAVISION)(BEAKER) (test code = 3438) Pediatrics Physician ID - [id number] ID - joanna Fuentes comments: Slide comments:CBC W/PLT COUNT & AUTO [id number] 10:37:18 Test Item Value Reference Range Interpretation [...] (BEAKER) (test code = 413) COMPREHENSIVE METABOLIC [id number] 07:28:31 Test Item Value Reference Range Interpretation [...] S NOT APPLICABLE FOR DIALYSIS PATIEN TS. Pediatrics Physician ID - BSIMMUNOGLOBULIN A (IGA)2021-09-01 07:27:15 Test Item Value Reference Range Interpretation Comments IMMUNOGLOBULIN A (IGA) (BEAKER) 235 mg/dL 63-484 (test code = 639) Pediatrics Physician ID - BSPT/[id number] 07:11:49 Test Item Value Reference Range Interpretation [...] 2.5-3.5 for patients with mechanical heart valves.PROTHROMBIN [id number] 07:11:14 Test Item Value Reference Range Interpretation Comments PROTIME (BEAKER) 13.5 seconds 11.9-14.2 (test code = 759) INR (BEAKER) (test 1.04 See_Comment [Automat ed message] code = 370) The system Appwiz generated this result transmitted ref erence range: <=5.90. The reference range was not used to int erpret this result as normal/abnormal . RECOMMENDED COUMADIN/WARFARIN INR THERAPY RANGESSTANDARD DOSE: 2.0 - 3.0 Includes: PROPHYLAXIS for venous thrombosis, systemic embolization; TREATMENT for venous thrombosis and/or pulmonary embolus.HIGH RISK: Target INR is 2.5-3.5 for patients with mechanical heart valves.POCT-GLUCOSE [id number] 22:01:13 Test Item Value Reference Range Interpretation Comments POC-GLUCOSE METER 219 mg/dL 70-110 H : TESTED A T [facility] 6720 (Stalkthis) (test code = [place] [facility], 1538) [address]: Pediatrics Physician/Techni dakota ID = [id number] for FABRIZIO JOYCE POCT-GLUCOSE [id number] 17:24:51 Test Item Value Reference Range Interpretation Comments POC-GLUCOSE METER 177 mg/dL 70-110 H : TESTED A T [facility] 6720 (Stalkthis) (test code = [facility], 1538) [address]: Pediatrics Physician/Techni dakota ID = [id number] for Laura Ch [id number] 14:29:25 Test Item Value Reference Range Interpretation Comments RPR SCREEN (Ultimate ShopperAKER) (test code = Nonreactive Nonreactive 420) RHEUMATOID FACTOR [id number] 14:27:52 Test Item Value Reference Range Interpretation Comments RHEUMATOID FACTOR TITER ([facility]) (test :8 Negative code = 2285) RHEUMATOID FACTOR AB, REFLEX TO [id number] 14:26:49 Test Item Value Reference Range Interpretation Comments RHEUMATOID FACTOR (GENEVA) (test Positive Negative code = 573) POCT-GLUCOSE [id number] 13:43:32 Test Item Value Reference Range Interpretation Comments POC-GLUCOSE METER 163 mg/dL 70-110 H : TESTED A T [facility] 6720 ([facility]) (test code = [facility], 1538) 57[address]: Pediatrics Physician/Techni dakota ID = [id number] for Laura Ch RETICULOCYTE [id number] 09:04:11 Test Item Value Reference Range Interpretation Comments RETICULOCYTE COUNT PCT ([facility]) (test 0.4 % 0.5-1.8 L code = 575) Pediatrics Physician ID - [id number]-GLUCOSE [id number] 08:53:33 Test Item Value Reference Range Interpretation Comments POC-GLUCOSE METER 117 mg/dL 70-110 H : TESTED A T [facility] 6720 ([facility]) (test code = [facility], 1538) 18[address]: Pediatrics Physician/Techni dakota ID = [id number] for José Miguel Elliott [id number] 08:02:13 Test Item Value Reference Range Interpretation Comments FERRITIN (Stalkthis) (test code = 44724.20 ng/mL 5.00-275.00 H 361) Pediatrics Physician ID - ADMINOperator ID - ADMINCOMPLEMENT COMPONENT [id number] 06:48:01 Test Item Value Reference Range Interpretation Comments C4 COMPLEMENT (Ultimate ShopperCAMILO) (test code = < mg/dL 15-57 L 394) Pediatrics Physician ID - BSHIV-1 ANTIGEN WITH HIV-1/2 [id number] 06:38:19 Test Item Value Reference Range Interpretation Comments HIV-1 ANTIGEN WITH HIV 1\\T\\2 Nonreactive Nonreactive ANTIBODY (2) (Ultimate ShopperCAMILO) (test code = 2586) Pediatrics Physician ID - BSCOMPLEMENT COMPONENT [id number] 06:32:35 Test Item Value Reference Range Interpretation Comments C3 COMPLEMENT (Ultimate ShopperAKER) (test code = 13 mg/dL 82-193 L 393) Pediatrics Physician ID - BSCOMPREHENSIVE METABOLIC [id number] 06:30:18 Test Item Value Reference Range Interpretation [...] S NOT APPLICABLE FOR DIALYSIS PATIEN TS. Pediatrics Physician ID - [id number] 06:30:18 Test Item Value Reference Range Interpretation Comments MAGNESIUM (BEAKER) (test code = 1.5 mg/dL 1.6-2.6 L 627) Pediatrics Physician ID - BSPT/[id number] 06:13:21 Test Item Value Reference Range Interpretation [...] 2.5-3.5 for patients with mechanical heart valves.PROTHROMBIN TIME/[id number] 06:12:36 Test Item Value Reference Range Interpretation Comments PROTIME (BEAKER) 13.8 seconds 11.9-14.2 (test code = 759) INR (BEAKER) (test 1.08 See_Comment [Automat ed message] code = 370) The system Appwiz generated this result transmitted ref erence range: [...] WBC 0-0 (test code = 413) BLOOD [id number] 05:00:52 Test Item Value Reference Range Interpretation Comments CULTURE (BEAKER) (test No growth in 5 days code = 1095) BLOOD [id number] 03:00:57 Test Item Value Reference Range Interpretation Comments CULTURE (BEAKER) (test No growth in 5 days code = 1095) The specimen volume collected for this blood culture was below the optimum (10 mL per bottle or 20 mL total). Use of lower volumes may adversely affect recovery and/or detection times of some organisms.POCT-GLUCOSE [id number] 21:20:13 Test Item Value Reference Range Interpretation Comments POC-GLUCOSE METER 132 mg/dL 70-110 H : TESTED A T [facility] 6720 (BEAKER) (test code = [facility], 1538) 38[address]: Pediatrics Physician/Techni dakota ID = [id number] for AXEL COLUNGA POCT-GLUCOSE [id number] 17:39:12 Test Item Value Reference Range Interpretation Comments POC-GLUCOSE METER 137 mg/dL 70-110 H : TESTED A T [facility] 6720 (BEAKER) (test code = [facility], 1538) 56[address]: Pediatrics Physician/Techni dakota ID = [id number] for Nury Link PERIPHERAL BLOOD SMEAR - PATHOLOGIST [id number] 16:27:42 Test Item Value Reference Range Interpretation Comments PERIPHERAL SMR REVIEW Microcytic hypochromic (BEAKER) (test code = anemia with mild 2640) anisopoikilocytosis. Leukopenia with neutropenia and left shifted granulocytic elements. Rare atypical lymphocytes. Decreased platelets; no significant platelet clumping/satellitism identified. [id number] Brea Morales (BEAKER) (test code = Xavier Gallegos 4079) POCT-GLUCOSE [id number] 12:50:21 Test Item Value Reference Range Interpretation Comments POC-GLUCOSE METER 148 mg/dL 70-110 H : TESTED A T [facility] 6720 (BEAKER) (test code = [place], 1538) [address]: Pediatrics Physician/Techni dakota ID = [id number] for Nury Link MISCELLANEOUS LAB [id number] 12:30:57 Test Item Value Reference Range Interpretation Comments SCAN RESULT (test code = see scanned results [id number]) see scanned [id number] 11:53:39 Test Item Value Reference Range Interpretation Comments LIPASE (BEAKER) (test code = 749) 969 U/L 8-78 H Pediatrics Physician ID - BSANA TITER AND [id number] 10:59:38 Test Item Value Reference Range Interpretation [...] 1+ few (test code = 768) POCT-GLUCOSE [id number] 08:23:03 Test Item Value Reference Range Interpretation Comments POC-GLUCOSE METER 97 mg/dL 70-110 : [facility] (BEAKER) (test code = [place], 1538) [address]: Pediatrics Physician/Techni dakota ID = [id number] for Nury Uriostegui [id number] 04:36:10 Test Item Value Reference Range Interpretation Comments MAGNESIUM (BEAKER) (test code = 1.5 mg/dL 1.6-2.6 L 627) Pediatrics Physician ID - BSC-REACTIVE [id number] 04:36:10 Test Item Value Reference Range Interpretation Comments C-REACTIVE PROTEIN (BEAKER) (test 0.77 mg/dL 0.00-0.50 H code = 676) Pediatrics Physician ID - BSCOMPREHENSIVE METABOLIC [id number] 04:36:09 Test Item Value Reference Range Interpretation [...] S NOT APPLICABLE FOR DIALYSIS PATIEN TS. Pediatrics Physician ID - BSPT/[id number] 04:12:17 Test Item Value Reference Range Interpretation [...] 2.5-3.5 for patients with mechanical heart valves.PROTHROMBIN TIME/[id number] 04:11:15 Test Item Value Reference Range Interpretation Comments PROTIME (BEAKER) 13.8 seconds 11.9-14.2 (test code = 759) INR (BEAKER) (test 1.08 See_Comment [Automat ed message] code = 370) The system Appwiz generated this result transmitted ref erence range: [...] WBC 0-0 (test code = 413) POCT-GLUCOSE [id number] 21:48:31 Test Item Value Reference Range Interpretation Comments POC-GLUCOSE METER 136 mg/dL 70-110 H : TESTED A T [facility] 6720 (BEAKER) (test code = [place], 1538) [address]: Pediatrics Physician/Techni dakota ID = [id number] for SA NDERS, AXEL SARS-COV2/RT-PCR ([facility])2021-08-29 20:38:24 Test Item Value Reference Range Interpretation Comments SARS-COV2/RT-PCR (test code = Negative Negative 1047684) Negative result for this test determines that [...] of the Act.Testing was performed using t [employer] SARS-CoV-2 assay.Fact Sheet for Healthcare Providers:https://www.Bookmate.AOTMP/pedro/RT SARS-CoV-2 HCP Fact Sheet 51- 893517.pdfFact Sheet for Healthcare Patients:https://www.Bookmate.AOTMP/pedro/RT SARS-CoV-2 Patient Fact Sheet EN 51-459260B7.pdfPOCT-GLUCOSE [id number] 17:55:13 Test Item Value Reference Range Interpretation Comments POC-GLUCOSE METER 109 mg/dL 70-110 : TESTED A T [facility] 6720 (BEAKER) (test code = [facility], 1538) 425[address]: Pediatrics Physician/Techni dakota ID = [id number] for Toy Lopez [id number] 14:07:15 Test Item Value Reference Range Interpretation Comments LIPASE (BEAKER) (test code = 749) > U/L 8-78 H Pediatrics Physician ID - FATMATA [id number] 14:02:51 Test Item Value Reference Range Interpretation Comments FIBRINOGEN LEVEL (BEAKER) (test 189 mg/dl 225-434 L code = 658) [id number] 13:33:46 Test Item Value Reference Range Interpretation Comments PHOSPHORUS (BEAKER) 2.1 mg/dL 2.3-4.7 L Specimen slightly (test code = 604) hemolyzed Pediatrics Physician ID - FATMATA WPOCT-GLUCOSE [id number] 11:56:19 Test Item Value Reference Range Interpretation Comments POC-GLUCOSE METER 109 mg/dL 70-110 : TESTED A T [facility] 6720 (BEAKER) (test code = [facility], 1538) [address]: Pediatrics Physician/Techni dakota ID = [id number] for Toy Lopez [id number] 10:37:25 Test Item Value Reference Range Interpretation Comments MAGNESIUM (BEAKER) 1.4 mg/dL 1.6-2.6 L Specimen slightly (test code = 627) hemolyzed Pediatrics Physician ID - BSCOMPREHENSIVE METABOLIC [id number] 10:37:25 Test Item Value Reference Range Interpretation [...] S NOT APPLICABLE FOR DIALYSIS PATIEN TS. Pediatrics Physician ID - BSPOCT-GLUCOSE [id number] 08:55:18 Test Item Value Reference Range Interpretation Comments POC-GLUCOSE METER 101 mg/dL 70-110 : TESTED A T [facility] 6720 (BEAKER) (test code = [place], 1538) [address]: Pediatrics Physician/Techni dakota ID = [id number] for Toy Lopez PROTHROMBIN [id number] 05:16:55 Test Item Value Reference Range Interpretation Comments PROTIME (BEAKER) 16.3 seconds 11.9-14.2 H (test code = 759) INR (BEAKER) (test 1.33 See_Comment [Automat ed message] code = 370) The system Appwiz generated this result transmitted ref erence range: [...] WBC 0-0 (test code = 413) POCT-GLUCOSE [id number] 04:41:33 Test Item Value Reference Range Interpretation Comments POC-GLUCOSE METER 122 mg/dL 70-110 H : TESTED A T [facility] 6720 (BEAKER) (test code = [place], 1538) [address]: Pediatrics Physician/Techni dakota ID = [id number] for Rachele Singh HEPATITIS B SURFACE [id number] 19:07:46 Test Item Value Reference Range Interpretation Comments HEPATITIS B SURFACE ANTIGEN (2) Nonreactive Nonreactive (BEAKER) (test code = 2585) Specimen is considered negative for HBsAg.HEPATITIS C [id number] 18:37:24 Test Item Value Reference Range Interpretation Comments HEPATITIS C ANTIBODY (BEAKER) Nonreactive Nonreactive (test code = 367) Pediatrics Physician ID - BSHEPATITIS A ANTIBODY, [id number] 18:29:47 Test Item Value Reference Range Interpretation Comments HEPATITIS A IGG ANTIBODY (BEAKER) Reactive Nonreactive A (test code = 2797) Pediatrics Physician ID - BSHEPATITIS B SURFACE [id number] 18:27:24 Test Item Value Reference Range Interpretation Comments HEPATITIS B SURFACE ANTIBODY 328.2 mIU/mL <8.0 H (BEAKER) (test code = 647) Pediatrics Physician ID - BSHEPATITIS B CORE ANTIBODY, [id number] 18:27:24 Test Item Value Reference Range Interpretation Comments HEPATITIS B CORE TOTAL ANTIBODY Nonreactive Nonreactive (BEAKER) (test code = 497) Pediatrics Physician ID - BSRapid drug screen, [id number] 18:17:41 Test Item Value Reference Range Interpretation Comments Barbiturate Screen Negative Negative (test code = 28115-0) Benzodiazepine Screen Negative Negative (test code = 31451-1) Cocaine (Metab.) Negative Negative Screen (test code = 3397-7) Methadone Screen (test Negative Negative code = 44078-0) Opiate Screen (test Negative Negative code = 75314-3) Cannabinoid Screen Negative Negative (test code = 91377-6) Amph/Methamph Screen Negative Negative (test code = 01327-9) Phencyclidine Screen Negative Negative (test code = 61562-7) pH, UA (test code = 7.5 5.0-8.0 5803-2) IDALIA (test code = IDALIA) DRUG CUTOFF CONC.Cocaine 300 ng/mL Cannabinoid 50 ng/mLBenzodiazepine 200 ng/mLBarbiturate 200 ng/mLPhencyclidine 25 ng/mLOpiate 300 ng/mLMethadone 300 ng/mLAmphetamine/ 1000 ng/mL Methamphetamine This assay provides an unconfirmed qualitative test result for the clinical management of patients in emergency situations. Chain of custody not maintained. Some tmsu-imd-nkkskto medications, as well as adulterants, may cause inaccurate results. Clinical correlation should be applied. A more comprehensive drug screen or confirmation of a detected drug may be performed upon request.Pediatrics Physician ID - BS Lab Interpretation Normal (test code = 53777-5) [facility] [id number] 18:17:41 Test Item Value Reference Range Interpretation Comments Barbiturate Screen Negative Negative (test code = 73766-2) Benzodiazepine Screen Negative Negative (test code = 85143-0) Cocaine (Metab.) Negative Negative Screen (test code = 3397-7) Methadone Screen (test Negative Negative code = 98332-0) Opiate Screen (test Negative Negative code = 36512-2) Cannabinoid Screen Negative Negative (test code = 98635-6) Amph/Methamph Screen Negative Negative (test code = 52008-3) Phencyclidine Screen Negative Negative (test code = 81586-5) pH, UA (test code = 7.5 5.0-8.0 5803-2) IDALIA (test code = IDALIA) DRUG CUTOFF CONC.Cocaine 300 ng/mL Cannabinoid 50 ng/mLBenzodiazepine 200 ng/mLBarbiturate 200 ng/mLPhencyclidine 25 ng/mLOpiate 300 ng/mLMethadone 300 ng/mLAmphetamine/ 1000 ng/mL Methamphetamine This assay provides an unconfirmed qualitative test result for the clinical management of patients in emergency situations. Chain of custody not maintained. Some efth-zcg-eckfrpi medications, as well as adulterants, may cause inaccurate results. Clinical correlation should be applied. A more comprehensive drug screen or confirmation of a detected drug may be performed upon request.Pediatrics Physician ID - BS Lab Interpretation Normal (test code = 27364-0) [facility], [id number] 18:17:41 Test Item Value Reference Range Interpretation Comments Barbiturate Screen Negative Negative (test code = 93162-8) Benzodiazepine Screen Negative Negative (test code = 13344-1) Cocaine (Metab.) Negative Negative Screen (test code = 3397-7) Methadone Screen (test Negative Negative code = 17330-2) Opiate Screen (test Negative Negative code = 06187-3) Cannabinoid Screen Negative Negative (test code = 15444-4) Amph/Methamph Screen Negative Negative (test code = 27673-0) Phencyclidine Screen Negative Negative (test code = 42940-5) pH, UA (test code = 7.5 5.0-8.0 5803-2) DIALIA (test code = IDALIA) DRUG CUTOFF CONC.Cocaine 300 ng/mL Cannabinoid 50 ng/mLBenzodiazepine 200 ng/mLBarbiturate 200 ng/mLPhencyclidine 25 ng/mLOpiate 300 ng/mLMethadone 300 ng/mLAmphetamine/ 1000 ng/mL Methamphetamine This assay provides an unconfirmed qualitative test result for the clinical management of patients in emergency situations. Chain of custody not maintained. Some nukq-wyw-ohyyjcn medications, as well as adulterants, may cause inaccurate results. Clinical correlation should be applied. A more comprehensive drug screen or confirmation of a detected drug may be performed upon request.Pediatrics Physician ID - BS Lab Interpretation Normal (test code = 82289-7) [facility], [id number] 18:17:41 Test Item Value Reference Range Interpretation Comments Barbiturate Screen Negative Negative (test code = 74835-8) Benzodiazepine Screen Negative Negative (test code = 16251-2) Cocaine (Metab.) Negative Negative Screen (test code = 3397-7) Methadone Screen (test Negative Negative code = 95341-2) Opiate Screen (test Negative Negative code = 49657-4) Cannabinoid Screen Negative Negative (test code = 42241-8) Amph/Methamph Screen Negative Negative (test code = 47457-9) Phencyclidine Screen Negative Negative (test code = 83895-6) pH, UA (test code = 7.5 5.0-8.0 5803-2) IDALIA (test code = IDALIA) DRUG CUTOFF CONC.Cocaine 300 ng/mL Cannabinoid 50 ng/mLBenzodiazepine 200 ng/mLBarbiturate 200 ng/mLPhencyclidine 25 ng/mLOpiate 300 ng/mLMethadone 300 ng/mLAmphetamine/ 1000 ng/mL Methamphetamine This assay provides an unconfirmed qualitative test result for the clinical management of patients in emergency situations. Chain of custody not maintained. Some pdnm-djt-kafgbcb medications, as well as adulterants, may cause inaccurate results. Clinical correlation should be applied. A more comprehensive drug screen or confirmation of a detected drug may be performed upon request.Pediatrics Physician ID - BS Lab Interpretation Normal (test code = 80803-9) [facility], [id number] 18:17:41 Test Item Value Reference Range Interpretation Comments Barbiturate Screen Negative Negative (test code = 52270-1) Benzodiazepine Screen Negative Negative (test code = 92457-8) Cocaine (Metab.) Negative Negative Screen (test code = 3397-7) Methadone Screen (test Negative Negative code = 99783-9) Opiate Screen (test Negative Negative code = 20961-6) Cannabinoid Screen Negative Negative (test code = 98731-4) Amph/Methamph Screen Negative Negative (test code = 23283-8) Phencyclidine Screen Negative Negative (test code = 00669-8) pH, UA (test code = 7.5 5.0-8.0 5803-2) IDALIA (test code = IDALIA) DRUG CUTOFF CONC.Cocaine 300 ng/mL Cannabinoid 50 ng/mLBenzodiazepine 200 ng/mLBarbiturate 200 ng/mLPhencyclidine 25 ng/mLOpiate 300 ng/mLMethadone 300 ng/mLAmphetamine/ 1000 ng/mL Methamphetamine This assay provides an unconfirmed qualitative test result for the clinical management of patients in emergency situations. Chain of custody not maintained. Some imet-qnw-plugnxk medications, as well as adulterants, may cause inaccurate results. Clinical correlation should be applied. A more comprehensive drug screen or confirmation of a detected drug may be performed upon request.Pediatrics Physician ID - BS Lab Interpretation Normal (test code = 72541-0) [facility], [id number] 18:17:41 Test Item Value Reference Range Interpretation Comments Barbiturate Screen Negative Negative (test code = 29931-8) Benzodiazepine Screen Negative Negative (test code = 41874-9) Cocaine (Metab.) Negative Negative Screen (test code = 3397-7) Methadone Screen (test Negative Negative code = 07223-7) Opiate Screen (test Negative Negative code = 71151-1) Cannabinoid Screen Negative Negative (test code = 29275-3) Amph/Methamph Screen Negative Negative (test code = 88542-2) Phencyclidine Screen Negative Negative (test code = 75386-1) pH, UA (test code = 7.5 5.0-8.0 5803-2) IDALIA (test code = IDALIA) DRUG CUTOFF CONC.Cocaine 300 ng/mL Cannabinoid 50 ng/mLBenzodiazepine 200 ng/mLBarbiturate 200 ng/mLPhencyclidine 25 ng/mLOpiate 300 ng/mLMethadone 300 ng/mLAmphetamine/ 1000 ng/mL Methamphetamine This assay provides an unconfirmed qualitative test result for the clinical management of patients in emergency situations. Chain of custody not maintained. Some jujg-yep-albalrq medications, as well as adulterants, may cause inaccurate results. Clinical correlation should be applied. A more comprehensive drug screen or confirmation of a detected drug may be performed upon request.Pediatrics Physician ID - BS Lab Interpretation Normal (test code = 94569-1) [facility], [id number] 18:17:41 Test Item Value Reference Range Interpretation Comments Barbiturate Screen Negative Negative (test code = 02387-5) Benzodiazepine Screen Negative Negative (test code = 48837-5) Cocaine (Metab.) Negative Negative Screen (test code = 3397-7) Methadone Screen (test Negative Negative code = 39072-5) Opiate Screen (test Negative Negative code = 89203-3) Cannabinoid Screen Negative Negative (test code = 62154-1) Amph/Methamph Screen Negative Negative (test code = 72471-1) Phencyclidine Screen Negative Negative (test code = 95522-2) pH, UA (test code = 7.5 5.0-8.0 5803-2) IDAILA (test code = IDALIA) DRUG CUTOFF CONC.Cocaine 300 ng/mL Cannabinoid 50 ng/mLBenzodiazepine 200 ng/mLBarbiturate 200 ng/mLPhencyclidine 25 ng/mLOpiate 300 ng/mLMethadone 300 ng/mLAmphetamine/ 1000 ng/mL Methamphetamine This assay provides an unconfirmed qualitative test result for the clinical management of patients in emergency situations. Chain of custody not maintained. Some jsqf-irz-ydadzim medications, as well as adulterants, may cause inaccurate results. Clinical correlation should be applied. A more comprehensive drug screen or confirmation of a detected drug may be performed upon request.Pediatrics Physician ID - BS Lab Interpretation Normal (test code = 47371-7) [facility], [id number] 18:17:41 Test Item Value Reference Range Interpretation [...] situations. Chain of custody not maintained. Some xknk-ccx-rdxygiy medications, as well as adulterants, may cause inaccurate results. Clinical correlation should be applied. A more comprehensive drug screen or confirmation of a detected drug may be performed upon request.Pediatrics Physician ID - BSIMMUNOGLOBULIN G (IGG)2021-08-28 18:13:19 Test Item Value Reference Range Interpretation Comments IMMUNOGLOBULIN G (IGG) 1400 mg/dL See_Comment [Aut omated message] (BEAKER) (test code = The sy stem which 427) generated this result transmit hernandez reference range : 540-1,822. The reference range was not used to interpret this result as normal/abnormal . Pediatrics Physician ID - BSIRON, TIBC, % SAT. (WITHOUT FERRITIN)2021-08-28 18:13:19 Test Item Value Reference Range Interpretation Comments IRON (BEAKER) (test code = 547) 139.0 ug/dL 40.0-160.0 TOTAL IRON BINDING CAPACITY 178 ug/dL 250-450 L (BEAKER) (test code = 769) IRON % SATURATION (2) (BEAKER) 78 % 20-55 H (test code = 2590) Pediatrics Physician ID - [id number] 16:36:26 Test Item Value Reference Range Interpretation Comments FERRITIN (BEAKER) (test code = 70391.56 ng/mL 5.00-275.00 H 361) Pediatrics Physician ID - BSOperator ID - MOGQXGK-8-[id number] 14:45:11 Test Item Value Reference Range Interpretation Comments ALPHA-1 ANTITRYPSIN 130.90 mg/dL 90.00-200.00 Specimen slightly (BEAKER) (test code = hemoly zed 502) Pediatrics Physician ID - DBPOCT-GLUCOSE [id number] 14:23:23 Test Item Value Reference Range Interpretation Comments POC-GLUCOSE METER 97 mg/dL 70-110 : TESTED A T [facility] 6720 (BEAKER) (test code = [facility], 1538) [address]: Pediatrics Physician/Techni dakota ID = [id number] for José Miguel Larkin POCT-GLUCOSE [id number] 08:20:47 Test Item Value Reference Range Interpretation Comments POC-GLUCOSE METER 85 mg/dL 70-110 : TESTED A T [facility] 6720 (BEAKER) (test code = [facility] [employer] [facility], 1538) [address]: Pediatrics Physician/Techni dakota ID = [id number] for José Miguel Larkin COMPREHENSIVE METABOLIC [id number] 06:21:17 Test Item Value Reference Range Interpretation [...] S NOT APPLICABLE FOR DIALYSIS PATIEN TS. Pediatrics Physician ID - [id number] 06:03:12 Test Item Value Reference Range Interpretation Comments MAGNESIUM (BEAKER) (test code = 1.8 mg/dL 1.6-2.6 627) Pediatrics Physician ID - DBCBC (HEMOGRAM ONLY)2021-08-28 05:04:44 Test [...] WBC 0-0 (test code = 413) POCT-GLUCOSE [id number] 22:30:31 Test Item Value Reference Range Interpretation Comments POC-GLUCOSE METER 99 mg/dL 70-110 : Notified RN/MD: TESTED (GENEVA) (test code = AT [facility] [address] 1538) [facility], 770 30: Pediatrics Physician/Techni dakota ID = [id number] for Artur Anders MR, ABDOMEN, [id number] 18:44:00Unlisted Reason for Exam - Click Yes and Enter Reason Below->No [facility] : 2000 Sex: [...] MDReport Verified Date/Time: 08/27/2021 18:44:20 Reading Location: [facility] B1 C013Y CT Body Reading Room MR, ABDOMEN, [id number] 18:44:00Pancreas protocol Unlisted Reason for Exam - Click Yes and Enter Reason Below->No Does the patient have an implanted electronic device?->No [facility] : 2000 [...] MDReport Verified Date/Time: 08/27/2021 18:44:20 Reading Location: [facility] B1 C013Y CT Body Reading Room COMPREHENSIVE METABOLIC [id number] 06:35:42 Test Item Value Reference Range Interpretation [...] S NOT APPLICABLE FOR DIALYSIS PATIEN TS. Pediatrics Physician ID - PIAYA [id number] 06:34:17 Test Item Value Reference Range Interpretation Comments MAGNESIUM (BEAKER) (test code = 2.1 mg/dL 1.6-2.6 627) Pediatrics Physician ID - MARIBEL LCBC (HEMOGRAM ONLY)2021-08-27 06:06:14 [...] WBC 0-0 (BEAKER) (test code = 413) [id number] 12:41:39 Test Item Value Reference Range Interpretation Comments LIPASE (BEAKER) (test code = 749) 1190 U/L 8-78 H Pediatrics Physician ID - ALVINA MURINALYSIS W/ REFLEX URINE [id number] 07:27:57 Test Item Value Reference Range Interpretation [...] = 1521) SOURCE(BEAKER) (test code = 2795) Pediatrics Physician ID - [auto]Pediatrics Physician ID - tech(CELLAVISION MANUAL DIFF)2021-08-26 03:09:42 Test [...] CONCENTRATION Decreased (CELLAVISION)(BEAKER) (test code = 3438) Pediatrics Physician ID - [id number] ID - Kyree comments: Slide comments:CBC W/PLT COUNT & AUTO [id number] 03:09:41 Test Item Value Reference Range Interpretation [...] (BEAKER) (test code = 413) COMPREHENSIVE METABOLIC [id number] 02:27:26 Test Item Value Reference Range Interpretation [...] S NOT APPLICABLE FOR DIALYSIS PATIEN TS. Pediatrics Physician ID - ALVINA [id number] 02:26:17 Test Item Value Reference Range Interpretation Comments TRIGLYCERIDES (BEAKER) (test code = 175 mg/dL 540) TRIGLYCERIDE REFERENCE RANGELow Risk <150Borderline Risk 150-199High Risk 200-499Very High Risk >=500Operator ID - ALVINA [id number] 02:26:16 Test Item Value Reference Range Interpretation Comments MAGNESIUM (BEAKER) (test code = 2.2 mg/dL 1.6-2.6 627) Pediatrics Physician ID - ALVINA MPROTHROMBIN TIME/[id number] 02:13:14 Test Item Value Reference Range Interpretation Comments PROTIME (BEAKER) 26.7 seconds 11.9-14.2 H (test code = 759) INR (BEAKER) (test 2.49 See_Comment [Automat ed message] code = 370) The system [employer] generated this result transmitted ref erence range: <=5.90. The reference range was not used to int erpret this result as normal/abnormal . RECOMMENDED COUMADIN/WARFARIN INR THERAPY RANGESSTANDARD DOSE: 2.0 - 3.0 Includes: PROPHYLAXIS for venous thrombosis, systemic embolization; TREATMENT for venous thrombosis and/or pulmonary embolus.HIGH RISK: Target INR is 2.5-3.5 for patients with mechanical heart valves. Notes Date/Time Note Provider Source 2022-02-07 21:11:07-00:[address] [facility] OPERATIVE/PROCEDURE REPORT VANGIE OVALLE FACILITY: [facility] Billing #: [id number] Room: [address] [place] [address] MR #: [id number] : 2000 DATE OF PROCEDURE: 02/07/2022 SURGEON: Amado Goyal MD PREOPERATIVE DIAGNOSIS: Peripancreatic abscess. POSTOPERATIVE DIAGNOSIS: Peripancreatic phlegmon with no area within the phlegmon to drain involving the gastr osplenic space or ligament. PROCEDURES: Exploratory laparotomy and aspiratio n of peripancreatic abscess. ASSISTANTS: 1. Demetris Waldron RES. 2. Milena Dickens MS. ESTIMATED BLOOD LOSS: 10 mL. SPECIMENS: Peripancreatic abscess fluid sent for culture and sensitivity. 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 Percutaneous drainage was not feasible due to the location of the abscess, and attempted endoscopi c drainage failed, therefore he was brought in today for el ective exploratory laparotomy and attempted drainage of the peripancreatic abscess. After induction of gener al anesthesia, Parrish catheter was inserted. Abdomen prepped wit h ChloraPrep and draped in a sterile fashion. The previous mi dline incision made using the scalpel and extended through the layers of the abdomen using the electrocautery. Upon entering the peritoneal cavity, dense adhesions were encountered between the omentum and the anterior abdominal wall, these were take n down using sharp dissection with electrocautery. Dissection carried down until the anterior abdominal wall freed. At this point, Ceron self-retaining retractor placed. Dissec tion of the splenic flexure carried out using sharp dissecti on. Spleen identified and then dissection of the splenocoli c ligament carried out. The dissection carried out in a cep halad direction. Lesser sac entered through the gastro colic ligament using sharp dissection. There was a hard phlegmo n involving the body and tail of the pancreas extending into the spleen and the posterior surface of the stomach. Dissection carried out using a combination of pulse lavage and electroc autery. I could not appreciate any fluctuation within the phlegmon. Multiple needle aspiration carried out and the c ontents sent for culture and sensitivity. However, I was unab le to find a localized fluid collection to drain and the whol e area appeared to be hard phlegmon and extended posterior to th e stomach, anterior to the spleen, all the way into the ulises phragm superiorly. Due to inability to drain the phlegm on, decision was made not to proceed with further exploration and the procedure was aborted. At this point, abdomen ir rigated with warm saline. Then, abdomen closed in one layer u sing #1 PDS in a continuous interrupted fashion and skin closed in a subcuticular fashion using 4-0 Monocryl. Meropen em and amphotericin irrigated with subcutaneous tissue, which was irrigated with Betadine prior to closure of the skin to prevent surgical site infection. The patient tolerated t he procedure and went to recovery in stable condition. OB/MODL /[id number] 2021-10-02 22:10:33-00:[address] [facility] OPERATIVE/PROCEDURE REPORT VANGIE OVALLE FACILITY: [facility] Billing #: [id number] Room: [facility] MR #: [id number] : 2000 DATE OF PROCEDURE: 10/02/2021 SURGEON: Amado Goyal MD PREOPERATIVE DIAGNOSIS: Necrotizing pancreatitis with pancreatic abscess. POSTOPERATIVE DIAGNOSIS: Necrotizing pancreatiti s with pancreatic abscess with abscess involving the ri ght and left paracolic gutter and the peripancreatic and retr operitoneum posterior to the head of the pancreas extending into the hilum of the liver posteriorly. PROCEDURE: 1. Exploratory laparotomy. 2. Drainage of pancreatic abscess. 3. Debridement of necrotic pancreas and retroper itoneal tissue. 4. Extensive abdominal washout using pulse lavag e with antibiotics. FABRIC WORKER LEADER: Chelsi Larsen RES, MD ESTIMATED BLOOD LOSS: 150 mL. SPECIMEN: Necrotic tissue and purulent fluid sen t for culture and sensitivity. INDICATIONS: This is a 21-year-old gentleman, wh o developed necrotizing pancreatitis treated initially with percutaneous drainage of peripancreatic abscess with no impro vement with increase in his leukocytosis and increased abdom inal pain. Therefore, he was brought in today for drainage of the pancreatic abscess, debridement of the pancreas and retroperitoneum. DESCRIPTION OF PROCEDURE: After induction of gen eral anesthesia, anesthesiologist placed a right radi al arterial catheter for invasive monitoring. A Parrish cathet er was then inserted. Abdomen prepped with ChloraPrep and dr aped in a sterile fashion. A midline incision was made usi ng scalpel extended through the layers of the abdomen using the electrocautery. Upon entering the peritoneal cav ity, Ben wound protector applied and then a Ceron self -retaining retractor placed. Abdomen inspected systematical ly. The retroperitoneum at the right paracolic gutter in cised and a large amount of purulent fluid aspirated. The di ssection was carried out using the pulse lavage all the way i nto the hilum of the liver posteriorly and posterior to the he ad of the pancreas and 2nd portion of the duodenum. Extens vinicio debridement carried out to the pancreas along th e head using blunt dissection along with the hydrodissection using the pulse lavage. Purulent fluid and necrotic tissue sent for culture and sensitivity. Then, attention directed toward s the left paracolic gutter and a large amount of purulent fluid aspirated and debrided using the pulse lavage. The dissect ion was carried out medially and anterior to the aorta a nd a large amount of purulent fluid also aspirated and the retroperitoneal tissue debrided extensively all way to the psoas muscle and inferiorly into the pelvis. Then, the abdomen wa s irrigated using the pulse lavage to separate the adhesed s mall intestine using the pulse lavage with warm saline antibiot ic solution. Two #10 flat BRODY catheter was introduced into the right paracolic gutter and extended posteriorly toward the hilum of the liver and retroperitoneum posterior debrided the head of the pancreas. Another #10 flat BRODY catheter was i ntroduced along the left paracolic gutter down into the pe lvis. Both drains exited the abdomen through a separate sta b incision. Abdomen was then closed in one layer using #1 PD S in a continuous interrupted fashion. Meropenem, ampho tericin injected in subcutaneous tissue, which was then irrigated with Betadine and the skin closed using royal. The patient tolerated the procedure, went to the ICU in stab le condition. OB/MODL /[id number]
[2022-12-13 01:44] LABS: Absolute Lymphocytes (CBC) 1.2 K/uL (0.7-4.9); Hematocrit 40.7 % (39.6-49.0); Lymphocytes % 13.2 % (15.3-44.8); MCV 74.7 fL (80-100); MPV 8.2 fL (7.6-11.3); RBC Red Blood Cell Count 5.45 M/uL (4.33-5.43)
[2022-12-13] MEDS ORDERED: PANTOPRAZOLE 40 MG INJ ONE (01:45)
[2022-12-13] MEDS ORDERED: cloNIDine HCL 0.1 MG TAB ONE (01:45)
[2022-12-13 01:46] LABS: AST/SGOT 11 U/L (15-37); Albumin 3.1 g/dL (3.4-5.0); Alkaline Phosphatase 87 U/L (45-117); BUN Blood Urea Nitrogen 7 mg/dL (7-18); Bicarbonate 25 mEq/L (21-32); Bilirubin Total 0.5 mg/dL (0.2-1.0); Creatine Phosphokinase 38 U/L (39-308); Glomerular Filtration Rate 132 ml/min (=/>90); Glucose Level 109 mg/dL (74-106); Lipase 15 U/L (13-75); Potassium 3.2 mEq/L (3.5-5.1); Protein, Total 7.8 g/dL (6.4-8.2); Sodium Level 135 mEq/L (136-145)
[2022-12-13 01:55] LABS: ALT/SGPT < 10 U/L (16-61)
[2022-12-13] MEDS ORDERED: DIPHENHYDRAMINE 50 MG/ML VIAL ONE (02:30)
[2022-12-13] MEDS ORDERED: METHYLPREDNISOLONE 125 MG INJ ONE (02:31)
[2022-12-13] MEDS ORDERED: POTASSIUM 25 MEQ EFFERV TAB ONE (04:25)
--- NOTE | 2022-12-13 04:40 | ER ---
Nurse's Notes [facility] Name: Sal Gomez Age: 22 yrs Sex: Male : 2000 Arrival Date: 12/13/2022 Time: 00:35 Bed 3 Private MD: Diagnosis: Low back pain;Chronic back pain, exacerbation of chronic pain;Poor hygiene, undetermined social situation Presentation: 12/13 00:49 Chief complaint: EMS states: Pt started vomiting blood around 11:30, stated he vomited vc1 5 times and back pain. He has no motor movement to his left leg or hand and no sensory to left leg. Partial motor movement to right leg. Coronavirus screen: Vaccine status: Patient reports being unvaccinated. Client denies travel out of the [place] in the last 14 days. At this time, the client does not indicate any symptoms associated with coronavirus-19. Ebola Screen: Patient negative for fever greater than or equal to 101.5 degrees Fahrenheit, and additional compatible Ebola Virus Disease symptoms Patient denies exposure to infectious person. Patient denies travel to an Ebola-affected area in the 21 days before illness onset. No symptoms or risks identified at this time. Initial Sepsis Screen: Does the patient meet any 2 criteria? HR > 90 bpm. No. Patient's initial sepsis screen is negative. Does the patient have a suspected source of infection? No. Patient's initial sepsis screen is negative. Risk Assessment: Do you want to hurt yourself or someone else? Patient reports no desire to harm self or others. Onset of symptoms was December 12, 2022 at 23:30. 00:49 Method Of Arrival: EMS: [facility] vc1 00:49 Acuity: DANICA 3 vc1 Triage Assessment: 00:53 General: Appears in no apparent distress. uncomfortable, obese, Behavior is vc1 cooperative, Denies fever, feeling ill. Pain: Complains of pain in back Pain does not radiate. Pain currently is 7 out of 10 on a pain scale. Quality of pain is described as sharp. EENT: No deficits noted. No signs and/or symptoms were reported regarding the EENT system. Neuro: Level of Consciousness is awake, alert, obeys commands, Oriented to person, place, time, situation, Appropriate for age. Cardiovascular: No deficits noted. Respiratory: Airway is patent Respiratory effort is even, unlabored, Respiratory pattern is regular, symmetrical. GI: Reports vomiting. : No deficits noted. No signs and/or symptoms were reported regarding the genitourinary system. Derm: No deficits noted. No signs and/or symptoms reported regarding the dermatologic system. Musculoskeletal: No deficits noted. No signs and/or symptoms reported regarding the musculoskeletal system. Historical: - Allergies: 03:03 Morphine; vc1 - PMHx: 00:52 borderline personlity disorder; Cerebrovascular accident; Hypertensive disorder; Lupus vc1 erythematosus; necrotizing pancreatitis; PTSD; Rheumatoid Arthritis; - PSHx: 00:52 Appendectomy; Hip surgery; Multiple abdominal surgeries; vc1 - Immunization history:: Client reports having NOT received the Covid vaccine. Adult Immunizations. - Social history:: Smoking status: Patient denies any tobacco usage or history of. - Family history:: not pertinent. Screenin:53 [facility] ED Fall Risk Assessment (Adult) History of falling in the last 3 months, vc1 including since admission No falls in past 3 months (0 pts) Confusion or Disorientation No (0 pts) Intoxicated or Sedated No (0 pts) Impaired Gait Yes (1 pt) Mobility Assist Device Used Yes (1 pt) Altered Elimination No (0 pt) Score/Fall Risk Level 0 - 2 = Low Risk Oriented to surroundings, Maintained a safe environment, Assessed \T\ reinforced patient's understanding of fall precautions. Abuse screen: Denies threats or abuse. Nutritional screening: No deficits noted. Tuberculosis screening: No symptoms or risk factors identified. Assessment: 02:00 Reassessment: No changes from previously documented assessment. Patient and/or family vc1 updated on plan of care and expected duration. Pain level reassessed. Patient is alert, oriented x 3, equal unlabored respirations, skin warm/dry/pink. 02:47 Derm: pt experienced allergic reaction after receiving morphine. Skin around IV site vc1 became red and itchy, veins in the area became raised and hives were noted to the area. Pt stated it happened the last 2 times he had morphine but no one told him that it was an allergic reaction. 03:30 Reassessment: No changes from previously documented assessment. Patient and/or family vc1 updated on plan of care and expected duration. Pain level reassessed. Patient is alert, oriented x 3, equal unlabored respirations, skin warm/dry/pink. 04:30 Reassessment: No changes from previously documented assessment. Patient and/or family vc1 updated on plan of care and expected duration. Pain level reassessed. Patient is alert, oriented x 3, equal unlabored respirations, skin warm/dry/pink. 05:27 Reassessment: Pt assisted with Showering and getting dressed. Discharged to [facility] wait for ride home. Vital Signs: 00:49 BP 163 / 134; Pulse 108; Resp 17; Temp 98.5; Pulse Ox 100% ; Pain 7/10; vc1 02:45 BP 158 / 105; Pulse 90; Resp 17; Pulse Ox 100% ; vc1 03:15 BP 120 / 68; Pulse 85; Resp 16; Pulse Ox 97% ; vc1 04:00 BP 138 / 100; Pulse 85; Resp 18; Pulse Ox 100% ; vc1 04:30 BP 151 / 100; Pulse 85; Resp 18; Pulse Ox 97% ; vc1 00:49 Pain Scale: Adult vc1 ED Course: 00:37 Patient arrived in ED. rv1 00:45 Mauro Sandoval PA is PHCP. cp 00:45 Daryl Massey MD is Attending Physician. cp 00:49 Nury Otero RN is Primary Nurse. vc1 00:52 Triage completed. vc1 00:53 Arm band placed on left wrist. vc1 00:53 Patient has correct armband on for positive identification. Bed in low position. Call vc1 light in reach. Client placed on continuous cardiac and pulse oximetry monitoring. NIBP monitoring applied. 01:04 Inserted saline lock: 20 gauge in right antecubital area, using aseptic technique. jb5 Blood collected. 01:04 IV discontinued, bleeding controlled, Pressure dressing applied. jb5 01:38 CT Stone Protocol In Process Unspecified. EDMS 02:13 Inserted saline lock: 24 gauge in right ,using aseptic technique. abdominal wall. kl Administered Medications: 01:32 Drug: Ondansetron IVP 4 mg Route: IVP; Site: right antecubital; vc1 02:20 Drug: NS 0.9% IV 1000 ml {Note: right abdomen.} Route: IV; Rate: 1000 ml/hr; Site: vc1 Other; 02:20 Drug: morphine IVP or IV 4 mg {Note: right abdomen.} Route: IVP; Infused Over: 4 mins; vc1 Site: Other; 02:24 Follow up: Response: Adverse reaction, Physician notified vc1 02:20 Drug: cloNIDine PO 0.2 mg Route: PO; vc1 02:20 Drug: Pantoprazole IVP 40 mg Route: IVP; Site: Other; vc1 04:15 Drug: Potassium PO Effervescent Tablet 50 mEq Route: PO; vc1 Medication: 00:53 VIS not applicable for this client. vc1 Outcome: 04:39 Discharge ordered by . sp4 05:26 Discharged to home via wheelchair, with family. jb4 05:26 Condition: stable 05:26 Discharge instructions given to patient, Instructed on discharge instructions, follow up and referral plans. medication usage, Demonstrated understanding of instructions, follow-up care, medications, Prescriptions given X 1. 05:27 Patient left the ED. jb4 Signatures: Dispatcher [employer] EDMS Radha Panchal RN RN kl Page, Corey, PA PA cp Bryson, James, RN RN jb4 Randi Rhoades jb5 Nury Otero RN RN vc1 Susana Santana rv1 Daryl Massey MD MD sp4 Corrections: (The following items were deleted from the chart) 03:01 03:01 morphine IVP or IV 4 mg IVP in Other over 4 mins; right abdomen vc1 vc1 03:04 00:52 Allergies: No Known Allergies; vc1 vc1
--- NOTE | 2022-12-13 04:40 | EDPHYS ---
Physician Documentation [facility] Name: Sal Gomez Age: 22 yrs Sex: Male : 2000 Arrival Date: 12/13/2022 Time: 00:35 Bed 3 Private MD: ED Physician Daryl Massey HPI: 12/13 01:00 This 22 yrs old Male presents to ER via EMS with complaints of Back Pain, Vomiting. cp 01:00 The patient presents with pain that is acute, with no known mechanism of injury. The cp symptoms are located in the mid back. Onset: The symptoms/episode began/occurred last night. The pain radiates to the left side of abdomen and left leg. Associated signs and symptoms: Pertinent positives: vomiting, Pertinent negatives: chest pain, constipation, fever. The problem was sustained pain started while sitting in wheelchair. Severity of symptoms: in the emergency department the symptoms have improved, mildly. 04:35 With 22-year-old male well-known to me from prior admission presents with acute back sp4 pain and vomiting.. Patient was here admitted in August for chronic pain and was released on 09/04/2022 to the retirement where he resided for some time and then that he had to leave retirement secondary to nonpayment of his Medicaid. . Historical: - Allergies: 03:03 Morphine; vc1 - PMHx: 00:52 borderline personlity disorder; Cerebrovascular accident; Hypertensive disorder; Lupus vc1 erythematosus; necrotizing pancreatitis; PTSD; Rheumatoid Arthritis; - PSHx: 00:52 Appendectomy; Hip surgery; Multiple abdominal surgeries; vc1 - Immunization history:: Client reports having NOT received the Covid vaccine. Adult Immunizations. - Social history:: Smoking status: Patient denies any tobacco usage or history of. - Family history:: not pertinent. ROS: 01:05 Constitutional: Negative for body aches, chills, fever, poor PO intake. cp 01:05 Eyes: Negative for injury, pain, redness, and discharge. cp 01:05 ENT: Negative for drainage from ear(s), ear pain, sore throat, difficulty swallowing, difficulty handling secretions. 01:05 Cardiovascular: Negative for chest pain, palpitations. 01:05 Respiratory: Negative for cough, shortness of breath, wheezing. 01:05 Abdomen/GI: Positive for abdominal pain, nausea, hematemesis, Negative for diarrhea, constipation. 01:05 : Negative for urinary symptoms. 01:05 Neuro: Negative for altered mental status, dizziness, headache, weakness. 01:05 All other systems are negative. Exam: 01:10 Constitutional: The patient appears in no acute distress, alert, awake, non-toxic, well cp developed, well nourished, unkempt. 01:10 Head/Face: Normocephalic, atraumatic. cp 01:10 Eyes: Periorbital structures: appear normal, Conjunctiva: normal, no exudate, no injection, Sclera: no appreciated abnormality, Lids and lashes: appear normal, bilaterally. 01:10 ENT: External ear(s): are unremarkable, Nose: is normal, Mouth: Lips: moist, Oral mucosa: pink and intact, moist, Posterior pharynx: Airway: no evidence of obstruction, patent. 01:10 Chest/axilla: Inspection: normal. 01:10 Cardiovascular: Rate: tachycardic, Rhythm: regular. 01:10 Respiratory: the patient does not display signs of respiratory distress, Respirations: normal, no use of accessory muscles, no retractions, labored breathing, is not present, Breath sounds: are clear throughout, no decreased breath sounds, no stridor, no wheezing. 01:10 Abdomen/GI: Inspection: scar(s), Bowel sounds: active, all quadrants, Palpation: soft, in all quadrants, moderate abdominal tenderness, in the anterior aspect of left lateral abdomen, posterior aspect of left lateral abdomen, left upper quadrant and left lower quadrant, rebound tenderness, is not appreciated, involuntary guarding, is not appreciated. 01:10 Neuro: Orientation: to person, place \T\ time. Mentation: is normal. Vital Signs: 00:49 BP 163 / 134; Pulse 108; Resp 17; Temp 98.5; Pulse Ox 100% ; Pain 7/10; vc1 02:45 BP 158 / 105; Pulse 90; Resp 17; Pulse Ox 100% ; vc1 03:15 BP 120 / 68; Pulse 85; Resp 16; Pulse Ox 97% ; vc1 04:00 BP 138 / 100; Pulse 85; Resp 18; Pulse Ox 100% ; vc1 04:30 BP 151 / 100; Pulse 85; Resp 18; Pulse Ox 97% ; vc1 00:49 Pain Scale: Adult vc1 MDM: 00:45 Patient medically screened. cp 01:15 Differential diagnosis: Cholelithiasis kidney stone, pyelonephritis. cp 04:37 ED course: IMPRESSION: 1. Very mild peripancreatic stranding. Correlate with any sp4 concern for pancreatitis. 2. Enlarged left iliac lymph nodes measuring up to 1.6 cm in short axis diameter. Enlarged left inguinal lymph node measuring 1.3 cm in short axis diameter. Enlarged/confluent right iliac lymph nodes measuring up to 1.9 cm in short axis diameter. These findings are chronic. . 04:58 Differential Diagnosis altered mental status, sepsis, flu, UTI. Data reviewed: vital sp4 signs, nurses notes, EMS record, old medical records, lab test result(s), EKG, radiologic studies. Consideration of Admission/Observation Escalation of care including admission/observation considered. ED course: Urinalysis does not reveal signs of urinary tract infection. Patient was given the shower here in ER for hygienic purposes. Patient was groomed by the nurses. Patient is stable for discharge back to his place of residence. We will advised to seek readmittance to the retirement or long-term care facility. . 12/13 00:51 Order name: CBC with Diff; Complete Time: 02:28 cp 12/13 02:28 Interpretation: Normal except: RBC 5.45; MCV 74.7; MCH 25.1; SAE% 78.0; LYM% 13.2. cp 12/13 00:51 Order name: CMP; Complete Time: 02:28 cp 12/13 02:29 Interpretation: Normal except: NA 135; K 3.2; GLUC 109; AST 11; ALT < 10; ALB 3.1; GLOB cp 4.7; A/G 0.7. 12/13 00:51 Order name: Lipase; Complete Time: 02:28 cp 12/13 02:40 Interpretation: Reviewed. 12/13 00:51 Order name: Urinalysis w/ reflexes; Complete Time: 04:54 cp 12/13 04:54 Interpretation: Abnormal: UNIT NEGATIVE. sp4 12/13 01:23 Order name: Creatine Phosphokinase; Complete Time: 02:28 EDMS 12/13 02:29 Interpretation: Reviewed. 12/13 00:51 Order name: CT Stone Protocol 12/13 00:51 Order name: IV Saline Lock; Complete Time: 03:02 cp 12/13 00:51 Order name: Labs collected and sent; Complete Time: 03:02 cp Administered Medications: 01:32 Drug: Ondansetron IVP 4 mg Route: IVP; Site: right antecubital; vc1 02:20 Drug: NS 0.9% IV 1000 ml {Note: right abdomen.} Route: IV; Rate: 1000 ml/hr; Site: vc1 Other; 02:20 Drug: morphine IVP or IV 4 mg {Note: right abdomen.} Route: IVP; Infused Over: 4 mins; vc1 Site: Other; 02:24 Follow up: Response: Adverse reaction, Physician notified vc1 02:20 Drug: cloNIDine PO 0.2 mg Route: PO; vc1 02:20 Drug: Pantoprazole IVP 40 mg Route: IVP; Site: Other; vc1 04:15 Drug: Potassium PO Effervescent Tablet 50 mEq Route: PO; vc1 Disposition: 03:13 Co-signature as Attending Physician, Daryl Massey MD I agree with the assessment sp4 and plan of care. I reviewed the patient's care provided by Advanced Practice Provider \T\ agree w/ the diagnosis \T\ care plan. I personally saw the pt \T\ performed a substantive portion of the visit, incldng all aspects of the (History/Exam/Medical Decision Making). Disposition Summary: 12/13/22 04:39 Discharge Ordered Location: Home sp4 Problem: new sp4 Symptoms: have improved sp4 Condition: Stable sp4 Diagnosis - Low back pain sp4 - Chronic back pain, exacerbation of chronic pain sp4 - Poor hygiene, undetermined social situation sp4 Followup: sp4 - With: Private Physician - When: 7 - 10 days - Reason: Recheck today's complaints Discharge Instructions: - Discharge Summary Sheet sp4 - Acute Back Pain, Adult sp4 Forms: - Patient Portal Instructions sp4 Prescriptions: - ibuprofen 800 mg Oral tablet - take 1 tablet by ORAL route 3 times per day; 30 tablet; Refills: 0, Product sp4 Selection Permitted Signatures: Dispatcher [employer] EDMS Mauro Sandoval PA PA cp Calcote, Vanessa, RN RN vc1 Daryl Massey MD MD sp4 Corrections: (The following items were deleted from the chart) 01:23 00:53 CREATINE PHOSPHOKINASE+C.LAB.BRZ ordered. EDMS EDMS 01:32 01:29 This 22 yrs old Male presents to ER via EMS with complaints of Back Pain, cp Vomiting. cp 03:04 00:52 Allergies: No Known Allergies; vc1 vc1
[2022-12-13 04:49] LABS: Calcium Oxalate Crystals- Ur Few /HPF (None Seen); Specific Gravity 1.022 (1.005-1.030); Urine Bacteria 20-50 /HPF (<20); Urine Bilirubin NEGATIVE (Negative); Urine Blood 2+ (Negative); Urine Clarity Extremely Turbid (Clear); Urine Color Yellow (Yellow); Urine Glucose NEGATIVE (Negative); Urine Mucus 4+ /HPF (None Seen); Urine Protein 3+ (Negative); Urine Urobilinogen Normal (Normal)
[2022-12-13 05:33] VITALS: TEMP 98.5; O2SAT 100
[2022-12-13 05:34] VITALS: BP 158/105
--- NOTE | 2022-12-13 15:06 | RAD REPORT ---
EXAM DESCRIPTION: CT Abdomen and Pelvis Without Intravenous Contrast CLINICAL HISTORY: The patient is 22 years old and is Male; back pain, left side abdomen pain TECHNIQUE: Axial computed tomography images of the abdomen and pelvis without intravenous contrast. Sagittal and coronal reformatted images were created and reviewed. This CT exam was performed usi ng one or more of the following dose reduction techniques: automated exposure control, adjustment o f the mA and/or kV according to patient size, and/or use of iterative reconstruction technique. COMPARISON: No relevant prior studies available. FINDINGS: Lung bases: Unremarkable. No mass. No consolidation. ABDOMEN: Liver: Unremarkable. Gallbladder and bile ducts: Unremarkable. No calcified stones. No ductal dilation. Pancreas: Very mild peripancreatic stranding. No ductal dilation. Spleen: Calcified granulomas in the spleen. Adrenals: Unremarkable. No mass. Kidneys and ureters: Unremarkable. No obstructing stones. No hydronephrosis. Stomach and bowel: Unremarkable. No obstruction. No mucosal thickening. PELVIS: Appendix: No findings to suggest acute appendicitis. Bladder: Unremarkable. Reproductive: Unremarkable as visualized. ABDOMEN and PELVIS: Intraperitoneal space: Unremarkable. No free air. No significant fluid collection. Bones/joints: No acute fracture. No dislocation. Soft tissues: Unremarkable. Vasculature: Unremarkable. No abdominal aortic aneurysm. Lymph nodes: Enlarged left iliac lymph nodes measuring up to 1.6 cm in short axis diameter. Enlar ged left inguinal lymph node measuring 1.3 cm in short axis diameter. Enlarged/confluent right iliac lymph nodes measuring up to 1.9 cm in short axis diameter. Other findings: Scattered Schmorl's nodes. IMPRESSION: 1. Very mild peripancreatic stranding. Correlate with any concern for pancreatitis. 2. Enlarged left iliac lymph nodes measuring up to 1.6 cm in short axis diameter. Enlarged left ing uinal lymph node measuring 1.3 cm in short axis diameter. Enlarged/confluent right iliac lymph nodes measuring up to 1.9 cm in short axis diameter. Electronically signed by: Anjum Rodriguez MD 12/13/2022 2:13 AM CDT Due to temporary technical issues with the PACS/Fluency reporting system, reports are being signed by the in house radiologists without review as a courtesy to insure prompt reporting. The interpreting radiologist is fully responsible for the content of the report.
== END 2022-12-13 05:27 | disposition home or self-care (01) ==
LOC: ER 00:35
DX: G89.29 Other chronic pain (principal); R46.0 Very low level of personal hygiene; Z60.9 Problem related to social environment, unspecified; Z88.5 Allergy status to narcotic agent; I10 Essential (primary) hypertension
CPT/HCPCS: 85025; 81001; 36415; 82550; 83690; 80053; 76377; 74176; 99285; J1200; C9113; J2930; J2405; J7030

== ENCOUNTER → 2023-07-07 | Emergency (ER) | payer OTHER ==
[~2023-07-07] MED LIST: HYDROCODONE/APAP 10/325 TAB ONE; KETOROLAC 30 MG/ML INJ ONE; PROMETHAZINE 25 MG TABLET ONE; cloNIDine HCL 0.1 MG TAB ONE
--- NOTE | 2023-07-07 21:24 | RAD REPORT ---
EXAM DESCRIPTION: CTAbdomen Pelvis Wo Contrast - 07/07/2023 9:07 pm CLINICAL HISTORY: RUQ contusion COMPARISON: Abdomen Pelvis W Contrast dated 02/27/2023; Stone Protocol dated 12/13/2022; Stone Prot ocol dated 07/30/2022; Abdomen Pelvis W Contrast dated 05/25/2022; Abdomen Pelvis W Contrast dated TECHNIQUE: CT of the abdomen and pelvis was performed. All CT scans are performed using dose optimization technique as appropriate and may include automated exposure control or mA/KV adjustment according to patient size. FINDINGS: Lower chest: No acute abnormality. Liver: No acute abnormality or suspicious lesions. Biliary: New calcification in the region of the distal common bile duct at the ampulla. The common bi le duct is mildly dilated at 7 millimeters. No pericholecystic inflammatory changes . Stomach: No significant focal abnormality. Duodenum: No significant focal abnormality. Pancreas: No significant abnormality. Spleen: Multiple splenic calcifications. Adrenal: No suspicious lesions. Kidney/ureter: No hydronephrosis. No renal calculi. Retroperitoneum: No retroperitoneal adenopathy. Vascular: No aneurysm. Bowel: No significant focal abnormality. Peritoneum: No ascites or free air. Bladder: Grossly unremarkable. Reproductive: No adnexal masses. Bones: No acute fracture. Severe left hip degenerative changes. Mild to moderate right hip degenerati ve changes. Other: n/a IMPRESSION: No acute intra-abdominal or pelvic finding. No evidence of significant trauma. Calcifica tion in the region of the ampulla at the distal common bile duct. This is new since 02/27/2023. This could choledocholithiasis. Suggest correlating with LFTs. If abnormal, could consider either ERCP or MRCP for further evaluation.
--- NOTE | 2023-07-07 22:22 | ER ---
Nurse's Notes [facility] Name: Sal Gomez Age: 23 yrs Sex: Male : 2000 Arrival Date: 07/07/2023 Time: 20:39 Bed 6 Private MD: Diagnosis: Contusion of abdominal wall Presentation: 07/07 20:41 Chief complaint: EMS states: tone out for right lateral pain after his dog pulled him km8 and he hit his right side on his wheelchair. Coronavirus screen: Client denies travel out of the [place] in the last 14 days. Ebola Screen: No symptoms or risks identified at this time. Initial Sepsis Screen: Does the patient meet any 2 criteria? No. Patient's initial sepsis screen is negative. Does the patient have a suspected source of infection? No. Patient's initial sepsis screen is negative. Risk Assessment: Do you want to hurt yourself or someone else? Patient reports no desire to harm self or others. Onset of symptoms was July 07, 2023. 20:41 Method Of Arrival: EMS: [facility] km8 20:41 Acuity: DANICA 3 km8 Triage Assessment: 20:43 General: Appears uncomfortable, Behavior is calm, cooperative, appropriate for age. km8 Pain: Complains of pain in anterior aspect of right lateral abdomen Pain currently is 7 out of 10 on a pain scale. Quality of pain is described as sharp. EENT: No signs and/or symptoms were reported regarding the EENT system. Neuro: Level of Consciousness is awake, alert, obeys commands, Oriented to person, place, time, situation. Cardiovascular: Denies chest pain, shortness of breath, Capillary refill < 3 seconds Patient's skin is warm and dry. Respiratory: Airway is patent Respiratory effort is even, unlabored, Respiratory pattern is regular, symmetrical. GI: No signs and/or symptoms were reported involving the gastrointestinal system. : No signs and/or symptoms were reported regarding the genitourinary system. Derm: No signs and/or symptoms reported regarding the dermatologic system. Skin is intact, is healthy with good turgor, Skin is dry, Skin is pink, warm \T\ dry. normal, Skin temperature is warm. Musculoskeletal: weakness on left side due to hx of CVA. Historical: - Allergies: 20:43 Morphine; km8 - PMHx: 20:43 borderline personlity disorder; Cerebrovascular accident; Hypertensive disorder; Lupus km8 erythematosus; necrotizing pancreatitis; PTSD; Rheumatoid Arthritis; - PSHx: 20:43 Appendectomy; Hip surgery; Multiple abdominal surgeries; km8 - Immunization history:: Client reports receiving the 2nd dose of the Covid vaccine, Flu vaccine is up to date. - Social history:: Smoking status: Reported history of juuling and/or vaping. Patient uses street drugs, marijuana, Patient/guardian denies using alcohol. - Family history:: not pertinent. Screenin:45 [facility] ED Fall Risk Assessment (Adult) History of falling in the last 3 months, km8 including since admission No falls in past 3 months (0 pts) Confusion or Disorientation No (0 pts) Intoxicated or Sedated No (0 pts) Impaired Gait Yes (1 pt) Mobility Assist Device Used Yes (1 pt) Altered Elimination No (0 pt) Score/Fall Risk Level 0 - 2 = Low Risk Oriented to surroundings, Maintained a safe environment, Educated pt \T\ family on fall prevention, incl call for assistance when getting out of bed, Assessed \T\ reinforced patient's understanding of fall precautions. Abuse screen: Denies threats or abuse. Denies injuries from another. Nutritional screening: No deficits noted. Tuberculosis screening: No symptoms or risk factors identified. Assessment: 20:45 General: see triage assessment/notes. 8 21:40 Reassessment: Patient appears in no apparent distress at this time. No changes from [facility] previously documented assessment. Patient and/or family updated on plan of care and expected duration. Pain level reassessed. Patient is alert, oriented x 3, equal unlabored respirations, skin warm/dry/pink. 22:23 Reassessment: Patient appears in no apparent distress at this time. No changes from [facility] previously documented assessment. Patient and/or family updated on plan of care and expected duration. Pain level reassessed. Patient is alert, oriented x 3, equal unlabored respirations, skin warm/dry/pink. 22:49 Reassessment: waiting for transport to take pt home. km8 Vital Signs: 20:41 BP 181 / 135; Pulse 99; Resp 16; Temp 98.3(O); Pulse Ox 100% on R/A; Weight 113.4 kg km8 (R); Height 5 ft. 7 in. (R); Pain 7/10; 21:40 BP 152 / 115; Pulse 98; Resp 18; Pulse Ox 100% on R/A; km8 22:23 BP 163 / 118; Pulse 75; Resp 18; Pulse Ox 98% on R/A; km8 20:41 Body Mass Index 39.16 (113.40 kg, 170.18 cm) km8 20:41 Pain Scale: Adult km8 [place] Coma Score: 20:45 Eye Response: spontaneous(4). Motor Response: obeys commands(6). Verbal Response: km8 oriented(5). Total: 15. ED Course: 20:41 Patient arrived in ED. km8 20:42 Daryl Massey MD is Attending Physician. sp4 20:43 Triage completed. km8 20:43 Arm band placed on right wrist. km8 20:45 Patient has correct armband on for positive identification. Bed in low position. Call km8 light in reach. Side rails up X2. Pulse ox on. NIBP on. Door closed. Noise minimized. Lights dimmed. 20:45 No provider procedures requiring assistance completed. Patient maintains SpO2 km8 saturation greater than 95% on room air. 20:47 Lucia Haji, ROSA is Primary Nurse. km8 21:09 CT Abd/Pelvis - Without Contrast In Process Unspecified. EDMS 22:22 Patient did not have IV access during this emergency room visit. km8 22:23 Provided Education on: d/c teaching. km8 23:10 EMS stated it would be an hour before they could transport, I told them I would call another company in hopes for a sooner ETA. I would call back if needing to keep as transport. 23:20 [facility] accepted for transport with an ETA \T\ [id number]. Administered Medications: 21:04 Drug: Ketorolac IM 60 mg IM once Route: IM; Site: right deltoid; jw7 22:03 Follow up: Response: No adverse reaction km8 21:05 Drug: Mercer PO 10 mg-325 mg 1 tabs PO once Route: PO; jw7 22:03 Follow up: Response: No adverse reaction km8 21:05 Drug: Promethazine PO 25 mg PO once Route: PO; jw7 22:03 Follow up: Response: No adverse reaction km8 21:05 Drug: cloNIDine PO 0.2 mg PO once Route: PO; jw7 22:03 Follow up: Response: No adverse reaction km8 22:07 Drug: Mercer PO 10 mg-325 mg 1 tabs PO once Route: PO; km8 22:23 Follow up: Response: No adverse reaction km8 Medication: 20:45 VIS not applicable for this client. km8 Outcome: 22:22 Discharge ordered by . arely 22:49 Discharge instructions given to patient, Instructed on discharge instructions, follow km8 up and referral plans. Demonstrated understanding of instructions, follow-up care, 23:35 Discharged to home via ambulance, km8 23:35 Condition: good 23:35 Patient left the ED. km8 Signatures: Dispatcher [employer] EDMS Kinsey Beltran Jodi, RN RN jw7 Daryl Massey MD MD sp4 Lucia Haji RN RN km8
--- NOTE | 2023-07-07 22:22 | EDPHYS ---
Physician Documentation [facility] Name: Sal Gomez Age: 23 yrs Sex: Male : 2000 Arrival Date: 07/07/2023 Time: 20:39 Bed 6 Private MD: ED Physician Daryl Massey HPI: 07/07 20:43 This 23 yrs old Male presents to ER via EMS with complaints of Right upper sp4 quadrant pain.. 22:26 Of theThis is a very unfortunate 23-year-old male who has trouble with mobility, sp4 history of rheumatoid arthritis, GI, physical deconditioning, left hip avascular necrosis, systemic lupus erythematosus, history of prior CVA, chronic pancreatitis, posttraumatic stress disorder, bipolar disorder, hypertension, axillary inguinal iliac lymphadenopathy, microscopic hematuria. Presents with EMS because of right upper quadrant abdominal contusion secondary to the fact that his dog pulled him today causing him to run into a wheelchair handle. Patient ran his upper abdominal area into the wheelchair Wilmer causing the right upper abdominal pain. No other traumatic finding. Patient was admitted here 08/28/2022 through 09/04/2022. He was admitted for rheumatoid arthritis, systemic lupus, left hip avascular necrosis, chronic pancreatitis and other problems related to physical debility including very poor hygiene. Patient has also history of multiple enlarged inguinal and iliac lymph nodes that have been documented to be unchanged over time. Also there are several axillary lymph nodes bilaterally of uncertain chronicity. Patient was managed for acute rheumatoid arthritis flareup and was initiated on high-dose steroids. Over the course of hospitalization as his symptoms have improved. And also reported significant pain and also dependency when other people for activities of daily living. Adult Protective Services has assisted with patient placement at that time to [facility]. Patient was discharged from the hospital on 09/04/2022 to [facility]. Patient's home medications include albuterol, hydroxychloroquine, Creon, metformin, metoprolol, risperidone, sertraline, trazodone, citalopram, Bactrim, oxycodone as needed, . Historical: - Allergies: 20:43 Morphine; km8 - PMHx: 20:43 borderline personlity disorder; Cerebrovascular accident; Hypertensive disorder; Lupus km8 erythematosus; necrotizing pancreatitis; PTSD; Rheumatoid Arthritis; - PSHx: 20:43 Appendectomy; Hip surgery; Multiple abdominal surgeries; km8 - Immunization history:: Client reports receiving the 2nd dose of the Covid vaccine, Flu vaccine is up to date. - Social history:: Smoking status: Reported history of juuling and/or vaping. Patient uses street drugs, marijuana, Patient/guardian denies using alcohol. - Family history:: not pertinent. ROS: 22:23 Constitutional: Negative for fever, chills, and weight loss, positive right upper sp4 abdominal contusion 22:23 All other systems are negative, Exam: 22:26 Constitutional: This is a well developed, well nourished patient who is awake, alert, sp4 appears to have physical deconditioning from mobility problems and also poor hygiene. Overweight male. Head/Face: Normocephalic, atraumatic. Eyes: Pupils equal round and reactive to light, extra-ocular motions intact. Lids and lashes normal. Conjunctiva and sclera are not injected. Cornea within normal limits. Periorbital areas with no swelling, redness, or edema. ENT: Nares patent. No nasal discharge, no septal abnormalities noted. Tympanic membranes are normal and external auditory canals are clear. Oropharynx with no redness, swelling, or masses, exudates, or evidence of obstruction, uvula midline. Mucous membranes moist. Neck: Trachea midline, no thyromegaly or masses palpated, and no cervical lymphadenopathy. Supple, full range of motion without nuchal rigidity, or vertebral point tenderness. Chest/axilla: Normal chest wall appearance and motion. Nontender with no deformity. No lesions are appreciated. Cardiovascular: Regular rate and rhythm with a normal S1 and S2. No gallops, murmurs, or rubs. Normal PMI, no JVD. No pulse deficits. Respiratory: Lungs have equal breath sounds bilaterally, clear to auscultation and percussion. No rales, rhonchi or wheezes noted. No increased work of breathing, no retractions or nasal flaring. Abdomen/GI: Soft, with normal bowel sounds. No distension or tympany. No guarding or rebound. No evidence of tenderness throughout. Back: No spinal tenderness. No costovertebral tenderness. Skin: Warm, dry with normal turgor. Normal color with no rashes, no lesions, and no evidence of cellulitis. MS/ Extremity: Pulses equal, no cyanosis. Neurovascular intact. Signs of physical debility from mobility problems. Patient states he is ambulatory via wheelchair Neuro: Awake and alert, GCS 15, oriented to person, place, time, and situation. Cranial nerves II-XII grossly intact. Motor strength 5/5 in all extremities. Sensory grossly intact. Psych: Awake, alert, with orientation to person, place and time. Behavior, mood, and affect are within normal limits Vital Signs: 20:41 BP 181 / 135; Pulse 99; Resp 16; Temp 98.3(O); Pulse Ox 100% on R/A; Weight 113.4 kg km8 (R); Height 5 ft. 7 in. (R); Pain 7/10; 21:40 BP 152 / 115; Pulse 98; Resp 18; Pulse Ox 100% on R/A; km8 22:23 BP 163 / 118; Pulse 75; Resp 18; Pulse Ox 98% on R/A; km8 20:41 Body Mass Index 39.16 (113.40 kg, 170.18 cm) km8 20:41 Pain Scale: Adult km8 [place] Coma Score: 20:45 Eye Response: spontaneous(4). Motor Response: obeys commands(6). Verbal Response: km8 oriented(5). Total: 15. MDM: 20:44 Patient medically screened. sp4 22:21 ED course: EXAM DESCRIPTION: CTAbdomen Pelvis Wo Contrast - 07/07/2023 9:07 pm CLINICAL sp4 HISTORY: RUQ contusion COMPARISON: Abdomen Pelvis W Contrast dated 02/27/2023; Stone Protocol dated 12/13/2022; Stone Protocol dated 07/30/2022; Abdomen Pelvis W Contrast dated 05/25/2022; Abdomen Pelvis W Contrast dated 08/25/2021 TECHNIQUE: CT of the abdomen and pelvis was performed. All CT scans are performed using dose optimization technique as appropriate and may include automated exposure control or mA/KV adjustment according to patient size. FINDINGS: Lower chest: No acute abnormality. Liver: No acute abnormality or suspicious lesions. Biliary: New calcification in the region of the distal common bile duct at the ampulla. The common bile duct is mildly dilated at 7 millimeters. No pericholecystic inflammatory changes . Stomach: No significant focal abnormality. Duodenum: No significant focal abnormality. Pancreas: No significant abnormality. Spleen: Multiple splenic calcifications. Adrenal: No suspicious lesions. Kidney/ureter: No hydronephrosis. No renal calculi. Retroperitoneum: No retroperitoneal adenopathy. Vascular: No aneurysm. Bowel: No significant focal abnormality. Peritoneum: No ascites or free air. Bladder: Grossly unremarkable. Reproductive: No adnexal masses. Bones: No acute fracture. Severe left hip degenerative changes. Mild to moderate right hip degenerative changes. Other: n/a IMPRESSION: No acute intra-abdominal or pelvic finding. No evidence of significant trauma. Calcification in the region of the ampulla at the distal common bile duct. This is new since 02/27/2023. This could choledocholithiasis. Suggest correlating with LFTs. If abnormal, could consider either ERCP or MRCP for further evaluation. . 22:23 ED course: CT revealed - No acute intra-abdominal or pelvic finding. No evidence of sp4 significant trauma. Calcification in the region of the ampulla at the distal common bile duct. This is new since 02/27/2023. This could choledocholithiasis. Suggest correlating with LFTs. If abnormal, could consider either ERCP or MRCP for further evaluation. Although there are abnormal findings pertaining to the ampulla and bile duct however patient does not have symptoms related to those particular findings. Patient has acute abdominal contusion to the right upper quadrant of the abdomen, without any significant traumatic findings on the CAT scan. Patient is stable for discharge home with EMS transport. . 22:33 Differential Diagnosis altered mental status, sepsis, flu, Abdominal wall contusion. sp4 Data reviewed: vital signs, nurses notes, EMS record, old medical records, radiologic studies, CT scan. ED course: Patient is stable for discharge home at this time. Request ambulance transport. 07/07 20:44 Order name: CT Abd/Pelvis - Without Contrast; Complete Time: 22:19 sp4 Administered Medications: 21:04 Drug: Ketorolac IM 60 mg IM once Route: IM; Site: right deltoid; jw7 22:03 Follow up: Response: No adverse reaction km8 21:05 Drug: [place] PO 10 mg-325 mg 1 tabs PO once Route: PO; jw7 22:03 Follow up: Response: No adverse reaction 8 21:05 Drug: Promethazine PO 25 mg PO once Route: PO; jw7 22:03 Follow up: Response: No adverse reaction km8 21:05 Drug: cloNIDine PO 0.2 mg PO once Route: PO; jw7 22:03 Follow up: Response: No adverse reaction km8 22:07 Drug: [place] PO 10 mg-325 mg 1 tabs PO once Route: PO; km8 22:23 Follow up: Response: No adverse reaction km8 Disposition Summary: 07/07/23 22:22 Discharge Ordered Notes: Ibuprophen OTC as needed for pain at home Location: Home sp4 Problem: new sp4 Symptoms: have improved sp4 Condition: Stable sp4 Diagnosis - Contusion of abdominal wall sp4 Followup: sp4 - With: Private Physician - When: As needed - Reason: Discharge Instructions: - Discharge Summary Sheet sp4 - Contusion, [id number] sp4 Forms: - Patient Portal Instructions sp4 Signatures: Dispatcher [employer] Opal Stratton RN RN [id number] Daryl Massey MD MD sp4 Lucia Haji RN RN km8
[2023-07-08 00:21] VITALS: BP 163/118; TEMP 98.3; O2SAT 98
== END ==
LOC: ER 20:39
DX: S30.1XXA Contusion of abdominal wall, initial encounter (principal); Z88.5 Allergy status to narcotic agent
CPT/HCPCS: 74176; 96372; 99285; Q0169